=== PATIENT | male | born 1950 | race Caucasian/White ===

== ENCOUNTER 2022-05-01 16:12 | Emergency (ER) | payer MEDICARE, BC, SELFPAY ==
[2022-05-01 16:17] VITALS: BMI 29.3
--- NOTE | 2022-05-01 16:22 | ED_ITS ---
HPI - Wound/Laceration General Time Seen by Provider: 16: Date Seen: 05/01/22 Chief Complaint: Skin/Abscess/Foreign Body Stated Complaint: NEEDS STITCHES IN LEFT HAND - SHARPENING KNIFE Time Seen by Provider: 05/01/22 16:13 Source: patient and RN notes reviewed Mode of arrival: ambulatory Limitations: no limitations History of Present Illness HPI narrative: Patient is a 71-year-old male that was sharpening knives and accidentally lost control of the knife and cut a flap into his left dorsum of his hand. It was bleeding extensively. He put multiple layers of pressure on it and wrapped it up. He had put so much pressure on it that his fingers are starting to turn a little numb and tingly underneath the bandage. He is on an aspirin daily but otherwise no other blood thinners. Denies any Plavix use or antiplatelet medicines. Denies any numbness tingling. He is not sure how deep it went. Tetanus up-to-date on 03/18/2018 per nursing staff. Related Data Allergies Allergy/AdvReac Type Severity Reaction Status Date / Time atorvastatin [From Lipitor] Allergy Verified 05/01/22 16:19 epinephrine Allergy Verified 05/01/22 16:19 Review of Systems Narrative: As per HPI PFSH PFSH Social History Smoking Status: Never smoker Do you use any of these nicotine containing products: None Second hand tobacco smoke exposure: No How often do you have a drink containing alcohol: never How often do you have six or more drinks on one occasion: Never AUDIT-C Alcohol total score: 0 Non-prescribed substance use: denies use service: No Exam Const: Documenting provider has reviewed patient's vital signs: yes Common normals: no apparent distress, average body habitus, oriented x3, no limitations, healthy appearing and alert Extremity: Other: Left hand is wrapped up in multiple layers on presentation. Some tape and patellar taken down and then he had a vet wrap type product with a bandage underneath it. When I removed all of these he started having copious bleeding. With pressure proximally to the wound I was able to evaluate enough and see that the medial aspect had a small little what appeared to be venous pumping wound. This was a curvilinear type laceration about 3 cm long. I could see of tendons completely cut and could demonstrate that he had a complete loss of extension of his left 2nd finger. He could fully extend all other digits. Distal neurovascular seem to be intact. Procedure note: 10 mL of plain 2% xylocaine were drawn up, about 4 mL were used locally. Wound had such copious bleeding that I did not need irrigation and that needed to stop the bleeding. Blood pressure cuff was put up by nursing s parkerf on his forearm, patient did not feeling a tingling in his fingers due to that during the procedure. Blood pressure cuff was only up for a total of 8 minutes. I was able to see the little pumping wound and able to put a figure- eight stitch in x1 with good hemostasis. I used Vicryl for this. For the wound, used a running suture using 4-0 Ethilon. There was good hemostasis, no evidence of any significant hematoma building up under the wound. Did ask nursing staff to put a pressure dressing on this. Neuro: Common normals: oriented x3 Sensorium/orientation: alert Course Consultations Consultation #1: Dab the PA from Orthopedics kindly assisted us over the phone on consultation. She did speak with Dr. Olivares our orthopedist. This patient just ate lunch at about 230. Patient is asked to follow up tomorrow in clinic with Orthopedics. He is to call the office in they will make sure he has an appointment. I will place him in extension of this finger with a splint. Time: 16:56 Critical Care Time Critical Care Time Critical Care Time: No Discharge Plan Discharge Clinical Impression: Laceration of hand involving extensor tendon Qualifiers: Encounter type: initial encounter Laterality: left Qualified Code(s): S61.412A - Laceration without foreign body of left hand, initial encounter Condition: Stable Instructions: Laceration (ED), Tendon Laceration (ED) Additional Instructions: Call [phone] right away to get scheduled for an appointment with the orthopedist tomorrow, I believe you will be scheduled with Dr. Olivares. Leave dressing and splint on. If you note that you start bleeding through the dressing, please return to the ER overnight. Follow Up/Referrals: Anatoliy Jackson MD [Primary Care Provider] - Stand Alone [facility] Info Instructions
--- NOTE | 2022-05-01 19:20 | ED.NURSE ---
Pt returned to ED after a short period of time due to bloody drainage seeping out of dressing that was applied to hand previously. Dressing was removed. Bleeding was well controlled by the time the dress was removed with no active bleeding. Pressure was reapplied and ice was applied.
== END 2022-05-01 20:04 | disposition home or self-care (01) ==
PROVIDERS: Emergency Provider Family Medicine; PCP Family Medicine
DX: S66.329A Laceration of extensor muscle, fascia and tendon of unspecified finger at wrist and hand level, initial encounter (principal); S61.412A Laceration without foreign body of left hand, initial encounter; W26.0XXA Contact with knife, initial encounter; Y93.E9 Activity, other interior property and clothing maintenance; Y92.019 Unspecified place in single-family (private) house as the place of occurrence of the external cause; Y99.8 Other external cause status
CPT/HCPCS: 12002; 99282; 99283

== ENCOUNTER 2022-05-02 12:10 | Outpatient (CLI) | payer MEDICARE, BC, SELFPAY ==
--- OUTSIDE RECORDS SUMMARY | 2022-05-02 12:19 | XMS_ITS | Encounter Summary ---
:1950 Author Organization [facility] Address [address] [place] [address] Care Team Providers Name Role Phone Unavailable Primary Care Provider Unavailable Encounter Details Date Type Department Care Team Description 01/15/2022 Orders Only Pharmacy Prior Auth [place] Shiela Jean [phone] Social History Tobacco Use Types Packs/Day Years Used Date Smoking Tobacco: Every Day Cigarettes Smokeless Tobacco: Never Alcohol Habits Answer Date Recorded How often do you have a drink containing alcohol? 2-3 times a week 12/20/2021 How many drinks containing alcohol do you have on a 1 or 2 12/20/2021 typical day when you are drinking? How often do you have six or more drinks on one Less than mo nthly 12/20/2021 occasion? Comment: Not asked Social Isolation Answer Date Recorded In a typical week, how many times do you talk on Once a week 12/20/2021 the phone with family, friends, or neighbors? How often do you get together with friends or Once a week 12/20/2021 relatives? How often do you attend voodoo or taoist 1 to 4 times per year 12/20/2021 services? Do you belong to any clubs or organizations such Yes 12/20/2021 as voodoo groups, unions, fraternal or athletic groups, or school groups? How often do you attend meetings of the clubs or Patient ref used 12/20/2021 organizations you belong to? Are you now , , , 12/20/2021 , never or living with a partner? Physical Activity Answer Date Recorded On average, how many days per week do you engage in moderate to 4 days 12/20/2021 strenuous exercise (like walking fast, running, jogging, dancing, swimming, biking, or other activities that cause a light or heavy sweat)? On average, how many minutes do you engage in exercise at is 50 min 12/20/2021 level? Stress Answer Date Recorded Do you feel stress - tense, restless, nervous, or To some ex tent 12/20/2021 anxious, or unable to sleep at night because your mind is troubled all the time - these days? Financial Resource Strain Answer Date Recorded How hard is it for you to pay for the very basics like Not h reba at all 12/20/2021 food, housing, medical care, and heating? Intimate Partner Violence Answer Date Recorded Within the last year, have you been afraid of your partner o r No 12/20/2021 ex-partner? Within the last year, have you been humiliated or emotionall y No 12/20/2021 abused in other ways by your partner or ex-partner? Within the last year, have you been kicked, hit, slapped, or No 12/20/2021 otherwise physically hurt by your partner or ex-partner? Within the last year, have you been raped or forced to have any No 12/20/2021 kind of sexual activity by your partner or ex-partner? Food Insecurity Answer Date Recorded Within the past 12 months, you worried that your food would Never true 12/20/2021 run out before you got money to buy more. Within the past 12 months, the food you bought just didn't N ever true 12/20/2021 last and you didn't have money to get more. Transportation Needs Answer Date Recorded In the past 12 months, has lack of transportation kept you f rom No 12/20/2021 medical appointments or from getting medications? In the past 12 months, has lack of transportation kept you f rom No 12/20/2021 meetings, work, or getting things needed for daily living? Housing Stability Answer Date Recorded In the last 12 months, was there a time when you were not ab le No 12/20/2021 to pay the mortgage or rent on time? In the last 12 months, how many places have you lived? 1 12/20/2021 In the last 12 months, was there a time when you did not hav e a No 12/20/[address] or slept in a custodial (including now)? Education Answer Date Recorded What is the highest level of school Bachelor's degree (e.g., BA, AB, 12/20/2021 you have completed or the highest BS) degree you have received? Sex Assigned at Date Recorded Male 12/20/2021 1:42 AM CDT documented as of this encounter Plan of Treatment Not on filedocumented as of this encounter Visit Diagnoses Not on filedocumented in this encounter
--- OUTSIDE RECORDS SUMMARY | 2022-05-02 12:19 | XMS_ITS | Encounter Summary ---
:1950 Author Organization [facility] Address [address] [place] [address] Care Team Providers Name Role Phone Unavailable Primary Care Provider Unavailable Encounter Details Date Type Department Care Team Description 02/04/2022 Orders Only Division of Nephrology and Yomi Carbone, [facility] [place] [address] [facility] [address] [place] [phone] (Wo rk) Social History Tobacco Use Types Packs/Day Years [...] 12/20/2021 relatives? How often do you attend evangelical or jew 1 to 4 times per year 12/20/2021 services? Do you belong to any clubs or organizations such Yes 12/20/2021 as evangelical groups, unions, fraternal or athletic groups, or [...] minutes do you engage in exercise at th is 50 min 12/20/2021 level? Stress Answer [...] place to sleep or slept in a long-term (including now)? Education Answer Date Recorded What [...]
--- OUTSIDE RECORDS SUMMARY | 2022-05-02 12:19 | XMS_ITS | Encounter Summary ---
:1950 Author Organization [facility] Address [address] [place] [address] Care Team Providers Name Role Phone Unavailable Primary Care Provider Unavailable Encounter Details Date Type Department Care Team Description 12/31/2021 Orders Only Division of Nephrology Ozzy Carbone Hypertension Essential and Hypertension in [place]. Primary (Primary Dx) [place], [place] [address] [facility] [address] [place] [phone] Social History Tobacco Use Types Packs/Day Years [...] 12/20/2021 relatives? How often do you attend jewish or jewish 1 to 4 times per year 12/20/2021 services? Do you belong to any clubs or organizations such Yes 12/20/2021 as jewish groups, unions, fraternal or athletic groups, or [...] place to sleep or slept in a fdc (including now)? Education Answer Date Recorded What is the highest level of school Bachelor's degree (e.g., BA, AB, 12/20/2021 you have completed or the highest BS) degree you have received? Sex Assigned at Date Recorded Male 12/20/2021 1:42 AM CDT documented as of this encounter Plan of Treatment Not on filedocumented as of this encounter Visit Diagnoses Diagnosis Hypertension Essential Primary - Primary documented in this encounter
--- OUTSIDE RECORDS SUMMARY | 2022-05-02 12:19 | XMS_ITS | Encounter Summary ---
:1950 Author Organization [facility] Address [address] [place] [address] Care Team Providers Name Role Phone Unavailable Primary Care Provider Unavailable Reason for Visit Outpatient (Routine) - Closed Specialty Diagnoses / Procedures Referred By Contact Refer red To Contact Nephrology and Ozzy Carbone on Hypertension [place] [address] [place] [address] Referral ID Status Reason Start Date Expiration Date Visits Requ ested Visits Authorized [id number] Closed 12/24/2021 12/24/2022 1 1 Encounter Details Date Type Department Care Team Description 12/31/2021 Office Visit Division of Prudencio Carbone Es sential Primary (Primary Dx); Nephrology and Ozzy Lai M.D. Atherosclerotic [facility] Disease [facility] [place] Coronary Artery Without Angina Pectoris; Hypertension in [address] [place] [address] Diabetes Mellitus Type 1 (HCC); [place], [place] Hyperlipidemia On Treatment; 200 [facility] [address] Atherosclerosis Of Autologous Vein Coron micaela Artery Bypass Graft With Documented Spasm (HCC) [place], [place] [phone] (Work) [phone] Social History Tobacco Use Types Packs/Day Years [...] 12/20/2021 relatives? How often do you attend protestant or evangelical 1 to 4 times per year 12/20/2021 services? Do you belong to any clubs or organizations such Yes 12/20/2021 as protestant groups, unions, fraternal or athletic groups, or [...] place to sleep or slept in a fci (including now)? Education Answer Date Recorded What is the highest level of school Bachelor's degree (e.g., BA, AB, 12/20/2021 you have completed or the highest BS) degree you have received? Sex Assigned at Date Recorded Male 12/20/2021 1:42 AM CDT documented as of this encounter Progress Notes Ozzy Carbone M.D. - 12/31/2021 4:00 PM CDT SUBJECTIVE REASON FOR VISIT Tests review/Wrap up HISTORY OF PRESENT ILLNESS Mr. Anderson returns for follow up with his for follow-up of resistant hypertension. He has a history of hyperkalemia on his current medications. OBJECTIVE DIAGNOSTICS Aldosterone was in the middle of the normal range at 8.3. Plasma metanephrines were normal. A TSH from elsewhere was normal two months ago. Renin activity was high at 18, normal less than 3. Renal artery Dopplers showed mild narrowing in the left main renal artery. Serum potassium, which was 7.0 last visit is down to 5.3, still a little high. 24 hour ambulatory blood pressure monitor on his current medications of amlodipine, carvedilol, hydralazine and lisinopril averaged 157/67 with a nocturnal dip. ASSESSMENT / PLAN #1 Hypertension, not at goal #2 Coronary artery disease status post stent, bypass and pacemaker, on aspirin #3 Obstructive sleep apnea on CPAP #4 Diabetes mellitus, type 1 The left renal artery narrowing is too mild to consider intervention. Previous trials using stents to treat this type of situation failed. Instead, I will change his medication program by adding chlorthalidone, 25 mg once daily. This should lower serum potassium and blood pressure. He will continue other medications as is. He will continue to check his blood pressure as instructed. In a week or so onthe revised blood pressure program, he will send me more readings and we will react accordingly. My next step would be to switch lisinopril to a direct renin inhibitor, aliskiren He will continue his dietary changes, trying to lose weight, aerobic exercise and CPAP. He described restless leg syndrome and/or peripheral neuropathy. I do not have the expertise to manage this and suggested that he talk to a neurologist or local care provider. I would be glad to make arrangements at [facility] for this if desired. We will check a basic metabolic panel in about a week after treatment, and he will send me more blood pressure readings on the new program. Ozzy Carbone M.D. 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
--- OUTSIDE RECORDS SUMMARY | 2022-05-02 12:19 | XMS_ITS | Encounter Summary ---
:1950 Author Organization [facility] Address [address] [place] [address] Care Team Providers Name Role Phone Unavailable Primary Care Provider Unavailable Reason for Referral Outpatient (Routine) - Closed Specialty Diagnoses / Procedures Referred By Contact Refer red To Contact Diagnoses Pain [facility] Procedures DX Chest AP or PA and Lateral 2 Views C.N.P. [address] [place] [phone] Referral ID Status Reason Start Date Expiration Date Visits Requ ested Visits Authorized [id number] Closed 10/18/2021 10/18/2022 1 1 Reason for Visit Outpatient (Routine) - Closed Specialty Diagnoses / Procedures Referred By Contact Refer red To Contact Diagnoses Pain Chest [facility] Procedures DX Chest AP or PA and Lateral 2 Views C.N.P. [address] [place] [phone] Referral ID Status Reason Start Date Expiration Date Visits Requ ested Visits Authorized [id number] Closed 10/18/2021 10/18/2022 1 1 Encounter Details Date Type Department Care Team Description 12/31/2021 Hospital Encounter Department of Radiology, Dontae Cueto, Pain Chest [facility], in EYELET MACHINE OPERATOR, C.N.P. [place], [place] [address] [facility] [address] [place] [phone] (Wo rk) Social History Tobacco Use Types [...] 12/20/2021 relatives? How often do you attend anabaptism or oriental orthodox 1 to 4 times per year 12/20/2021 services? Do you belong to any clubs or organizations such Yes 12/20/2021 as anabaptism groups, unions, fraternal or athletic groups, or [...] AM CDT documented as of this encounter Medications at Time of Discharge Medication Sig Dispensed Refills Start Date End Date alpha lipoic acid 100 Take 100 mg by mouth 2 0 mg capsule (two) times a day. Total of 200mg amLODIPine (NORVASC) 10 amlodipine 10 mg tablet 0 12/09/2021 mg tablet 10mg 1/day aspirin 325 mg tablet aspirin 325 mg tablet 0 325mg 1/day chlorthalidone Take 1 tablet (25 mg 90 tablet 3 12/31/2021 12/31/2022 (HYGROTON) 25 mg tablet total) by mouth daily. copper (PARAGARD T 380A copper 0 UTRN) 2mg 1/day cyanocobalamin, vitamin cyanocobalamin (vit B-12) 1,000 mcg subl ingual lozenge 0 B-12, (VITAMIN B12) PLACE 1 TABLET UNDER THE TONGUE ONCE DAILY 1,000 mcg lozenge lozenge ferrous sulfate 324 mg Take 140 mg of iron by 0 (65 mg iron) DR tablet mouth. gabapentin (NEURONTIN) 600 mg 2 (two) times a 0 0 05/01/2021 300 mg capsule day. hydrALAZINE hydralazine 25 mg tablet 0 05/02/2021 (APRESOLINE) 25 mg TAKE 1 TABLET BY MOUTH 3 TI MES DAILY ALONG WITH 50MG TABLET FOR TOTAL DOSE OF 75MG tablet insulin lispro 100 Humalog U-100 Insulin 100 unit/mL subcutaneous olivia ution 0 unit/mL injection USING UP TO 135UNITS EVERY DAY VIA INSULIN PUMP. isosorbide mononitrate isosorbide mononitrate 0 1 (IMDUR) 60 mg 24 hr ER 60 mg tablet tablet,extended release 24 hr melatonin 10 mg capsule Take by mouth. 0 10/25/19 22 rosuvastatin (CRESTOR) rosuvastatin 40 mg 0 08/13 40 mg tablet tablet sertraline (ZOLOFT) 50 sertraline 50 mg 0 021 mg tablet tablet turmeric-turmeric root Take by mouth. 0 extract 450-50 mg capsule carvediloL (COREG) 12.5 carvedilol 12.5 mg 0 04/202202/24/2022 mg tablet tablet lisinopriL lisinopril 10 mg tablet 0 07/17/2021 0 01/14/2022 (PRINIVIL,ZESTRIL) 10 10mg 1/day mg tablet documented as of this encounter Plan of Treatment Not on filedocumented as of this encounter Procedures Procedure Name Priority Date/Time Associated Comments Diagnosis DX CHEST AP OR PA RAD - Routine 12/31/2021 12:00 Pain Chest Resul ts for this AND LATERAL 2 (most inpatients PM CDT procedure are in VIEWS and all the results outpatients) section. documented in this encounter Results DX Chest AP or PA and Lateral 2 Views (12/31/2021 12:00 PM CDT) Anatomical Region Laterality Modality Chest, Thoracic RST LOS, Thoracic ARZ LOS, Thoracic N/A Digital Radiography FLA LOS Specimen (Source) Anatomical Collection Method Collection Time Re ceived Time Location / / Volume Laterality 12/31/2021 12:01 PM CDT Impressions 12/31/2021 12:04 PM CDT Interval placement of an AV pacemaker since outside exam 06/24/2021 with left anterior chest wall generator and lead tips proje cted over the right atrial appendage and in the region of the RVOT. Mild anterior elevation of the right hemidiaphragm. Resolved left pleural effusion. Otherwise no change. Sternotomy with med iastinal clips. Borderline enlargement of the cardiac silhouette. Mildly prominent central pul monary vascular structure. Mild aortic arch calcification. Healed left clavicle and left rib fractu res. Hypertrophic degenerative change thoracic spine. Mild anterior wedging of a couple upper thora cic vertebral bodies. Narrative 12/31/2021 12:04 PM CDT EXAM: ??DX CHEST AP OR PA AND LATERAL 2 VIEWS Procedure Note Chandu Martinez M.D. - 12/31/2021Formattin g of this note might be different from the original. EXAM: DX CHEST AP OR PA AND LATERAL 2 EWS IMPRESSION: Interval placement of an AV pacemaker si nce outside exam 06/24/2021 with left anterior chest wall generator and lead tips proje cted over the right atrial appendage and in the region of the RVOT. Mild anterior elevation of the right hemidiaphragm. Resolved left pleural effusion. Otherwise no change. Sternotomy with med iastinal clips. Borderline enlargement of the cardiac silhouette. Mildly prominent central pul monary vascular structure. Mild aortic arch calcification. Healed left clavicle and left rib fractu res. Hypertrophic degenerative change thoracic spine. Mild anterior wedging of a couple upper thora cic vertebral bodies. Nydia Cueto APRN C.N.P. IMG DIAGNOSTIC IMAGING PRO CEDURES documented in this encounter Visit Diagnoses Diagnosis Pain Chest documented in this encounter
--- OUTSIDE RECORDS SUMMARY | 2022-05-02 12:19 | XMS_ITS | Encounter Summary ---
:1950 Author Organization [facility] Address [address] [place] [address] Care Team Providers Name Role Phone Unavailable Primary Care Provider Unavailable Reason for Visit Reason Comments Med Refill Encounter Details Date Type Department Care Team Description 01/14/2022 Refill Division of Nephrology and Carlotta Garzon R.N. Med Refill Hypertension in [place], [facility] [address] [place] [address] [place] [address] [place] [address] Social History Tobacco Use Types Packs/Day Years [...] 12/20/2021 relatives? How often do you attend christianity or jainism 1 to 4 times per year 12/20/2021 services? Do you belong to any clubs or organizations such Yes 12/20/2021 as christianity groups, unions, fraternal or athletic groups, or [...] for the very basics like Not h reab at all 12/20/2021 food, housing, medical care, [...] place to sleep or slept in a care home (including now)? Education Answer Date Recorded What [...]
--- OUTSIDE RECORDS SUMMARY | 2022-05-02 12:19 | XMS_ITS | Encounter Summary ---
:1950 Author Organization [facility] Address [address] [place] [id number] Care Team Providers Name Role Phone Unavailable Primary Care Provider Unavailable Reason for Visit Reason Comments Hypertension Hypertension Education and M onitor check Outpatient (Routine) - Closed Specialty Diagnoses / Procedures Referred By Contact Refer red To Contact Nephrology and Ozzy Carbone on Hypertension Tee Lai [address] [place] [phone] Referral ID Status Reason Start Date Expiration Date Visits Requ ested Visits Authorized [id number] Closed 12/24/2021 12/24/2022 1 1 Encounter Details Date Type Department Care Team Description 12/31/2021 Nurse Only Division of Nephrology Ozzy Carbone M.D. [address] [place] [phone] Hypertension and Hypertension in Isabella Neri R.N. [address] [place] [phone] (Hypertension [place], [place] Education and Monitor [address] [place] [address] check ) [place] [phone] Social History Tobacco Use Types Packs/Day Years [...] 12/20/2021 relatives? How often do you attend congregation or methodist 1 to 4 times per year 12/20/2021 services? Do you belong to any clubs or organizations such Yes 12/20/2021 as congregation groups, unions, fraternal or athletic groups, or [...] AM CDT documented as of this encounter Last Filed Vital Signs Vital Sign Reading Time Taken Comments Blood Pressure 142/52 12/31/2021 3:04 PM CDT Pulse - - Temperature - - Respiratory Rate - - Oxygen Saturation - - Inhaled Oxygen Concentration - - Weight 100 kg (220 lb 7.4 oz) 12/31/2021 3:02 PM CDT Height - - Body Mass Index 29.96 12/31/2021 12:55 PM CDT documented in this encounter Progress Notes Isabella Neri, RRamaN. - 12/31/2021 3:00 PM CDT Provider Name: Dr Carbone Reason for Visit: monitor check Home BP Monitor: Omron digital upper arm monitor with soft cuff Date last assessed: 12/31/21- Monitor found to be accurate. Plan of Care: In-office blood pressures are: above goal Patient was able to demonstrate proper cuff placement. Reviewed proper blood Recommend having home blood pressure monitor assessed for accuracy on an annual basis. Also discussed the importance of a low salt diet and limiting intake to 2000 mg per day or less and the importance of staying well hydrated. Encouraged daily exercise. Until blood pressure is at goal, recommended that he check his blood pressure in the morning and again in the evening. Informed that he can take a picture of his blood pressure readings and send the information on the portal. Reviewed signs and symptoms of heart attack and stroke. He has an appointment with Dr Carbone later this afternoon. documented in this encounter Plan of Treatment Not on filedocumented as of this encounter Visit Diagnoses Diagnosis Hypertension Essential Primary - Primary documented in this encounter
--- OUTSIDE RECORDS SUMMARY | 2022-05-02 12:19 | XMS_ITS | Encounter Summary ---
:1950 Author Organization [facility] Address [address] [place] [address] Care Team Providers Name Role Phone Unavailable Primary Care Provider Unavailable Reason for Visit Reason Comments Med Refill Priority 1/Carvedilol Encounter Details Date Type Department Care Team Description 01/31/2022 Refill Division of Nephrology Ozzy Carbone Med Refill (Priority and Hypertension in B, M.D. 1/Carvedilol) [place], [place] [address] [facility] [address] [place] [phone] (Wo rk) Social History Tobacco Use Types [...] 12/20/2021 relatives? How often do you attend hindu or sikh 1 to 4 times per year 12/20/2021 services? Do you belong to any clubs or organizations such Yes 12/20/2021 as hindu groups, unions, fraternal or athletic groups, or [...] place to sleep or slept in a [place] [facility] [place] (including now)? Education Answer Date Recorded What is the highest level of school Bachelor's degree (e.g., BA, AB, 12/20/2021 you have completed or the highest BS) degree you have received? Sex Assigned at Date Recorded Male 12/20/2021 1:42 AM CDT documented as of this encounter Miscellaneous Notes Telephone Encounter - Riddhi Brock R.N. - 01/31/2022 11:25 AM CDT SUBJECTIVE CHIEF COMPLAINT / REASON FOR CALL Med Refill (Priority 1/Carvedilol) Information Discussed Received a message from the scheduling office to have Dr. Carbone refill carvedilol. This medication is documented historically and Dr. Carbone is not the prescribing provider. Message was left for patient to return call or review portal message. Patient will need to seek refills from original prescribing provider for carvedilol. PLAN Disposition/Recommendation: self-care is appropriate at this time, patient encouraged to call back with questions Information/Education: patient/caller able to teach back Caller agreeable to plan of care: yes The following references were used: nursing clinical judgement Telephone Encounter - Kylie Adan - 01/31/2022 9:46 AM CDT Caller is: patient If not the patient, does the caller have authorization? Reason for call: Patient calling to get his Carvedilol refilled by Dr. Carbone. Patient is out of his medication and is leaving for out of town tomorrow. Please call him either way. Chief Complaint Patient presents with ??? Med Refill Carvedilol Pertinent Information: Preferred Communication Method: [phone] (mobile) Patient pharmacy: [id number] - [place] - [id number] [address] [facility] [address] [facility] [id number] [place] [id number] Additional instructions: documented in this encounter Plan of Treatment Not on filedocumented as of this encounter Visit Diagnoses Not on filedocumented in this encounter
--- OUTSIDE RECORDS SUMMARY | 2022-05-02 12:19 | XMS_ITS | Encounter Summary ---
:1950 Author Organization [facility] Address [address] [place] [address] Care Team Providers Name Role Phone Unavailable Primary Care Provider Unavailable Reason for Visit Outpatient (Routine) - Closed Specialty Diagnoses / Referred By Contact Referred To Contact Procedures Cardiovascular Diseases / Diagnoses Atherosclerotic Heart Disease Of [place] Coronary Artery Without Angina Pectoris Pantera Valero [facility] Cardiovascular Disease Mesha, M.DRama [address] [place] [address] Referral ID Status Reason Start Date Expiration Date Visits Requ ested Visits Authorized [id number] Closed 02/03/2022 02/03/2023 1 1 Encounter Details Date Type Department Care Team Description 03/25/2022 Comprehensive Visit Department of Jas Valero Essential Primary (Primary Dx); Cardiovascular Hanh Nanceot ic Heart Disease [facility] [place] Coronary Artery Without Angina Pectoris; Medicine in M.D. Hyperlipidemia; [place], [place] [address] Dizziness [address] [facility] [phone] [place] [phone] Social History Tobacco Use Types Packs/Day Years [...] 12/20/2021 relatives? How often do you attend taoist or lutheran 1 to 4 times per year 12/20/2021 services? Do you belong to any clubs or organizations such Yes 12/20/2021 as taoist groups, unions, fraternal or athletic groups, or [...] place to sleep or slept in a residential (including now)? Education Answer Date Recorded What is the highest level of school Bachelor's degree (e.g., BA, AB, 12/20/2021 you have completed or the highest BS) degree you have received? Sex Assigned at Date Recorded Male 12/20/2021 1:42 AM CDT documented as of this encounter Last Filed Vital Signs Vital Sign Reading Time Taken Comments Blood Pressure 107/50 03/25/2022 3:03 PM CDT Pulse 65 03/25/2022 3:03 PM CDT Temperature - - Respiratory Rate - - Oxygen Saturation - - Inhaled Oxygen Concentration - - Weight 97.2 kg (214 lb 4.6 oz) 03/25/2022 2:58 PM CDT Height 182.5 cm (5' 11.85) 03/25/2022 2:58 PM CDT Body Mass Index 29.18 03/25/2022 2:58 PM CDT documented in this encounter Progress Notes Pantera Valero M.D. - 03/25/2022 3:15 PM CDT GENERAL CARDIOLOGY CLINIC NOTE SUBJECTIVE REASON FOR VISIT Dizziness HISTORY OF PRESENT ILLNESS Nikita Anderson is a 71-year-old gentleman that presents for evaluation of dizziness. 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 # Obesity. # H/o prostate cancer # Reported history of atrial tachycardia versus atrial fibrillation I previously evaluated the patient on 12/31/2021. Please see documentation from that encounter for full history. To briefly summarize, the patient has a history of coronary artery bypass on 04/19/2021 with DOUGLASS to LAD, reverse SVG to PDA, and reverse SVG to OM2. In fall 2020, patient underwent repeat angiogram due to abnormalities noted on TTE. This demonstrated stump occlusion of graft to OM. Patient was medically managed as it was felt to be a relatively small myocardial territory, inconsistent withechocardiographic findings. Most recently, in spring 2021, the patient presented to ED with symptomatic bradycardia with sinus node dysfunction/junctional escape and underwent dual-chamber pacemaker implantation on 10/25/2021. Notably, the patient did have a history of atrial tachycardia versus atrial fibrillation post surgery, but this has not been demonstrated on his pacemaker. He has a history of hypertension and is currently being followed by our hypertension clinic He presents today for evaluation of lightheadedness. Symptoms were worst in January/February of this year, the patient was having multiple episodes of lightheadedness throughout the day lasting upwards of 1 minute. He had no associated symptoms such as flushing, nausea, chest pain, or palpitations. 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 They also frequently occurred when moving from a bending to standing position, though not consistently with positional change. Symptoms appear to have improved over the past month. He previously underwent transthoracic echocardiogram in December with no significant valvular disease. LVfunction is preserved though the patient does have anterior/anterior septal mid ventricular aneurysmal changes. Patient reports no concerning abnormalities on device interrogation performed locally. I have reviewed and updated the following: Past Medical History, Family History, Social History, andAllergies., Past Medical History: Diagnosis Date Apnea Sleep Obstructive Chronic Kidney Disease Coronary Arterial Bypass Graft Status Post Personal History Diabetes Mellitus Type 1 (HCC) Pacemaker Cardiac Status Post , No past surgical history on file., No family history on file., Social History Socioeconomic History Marital status: Highest education level: Bachelor's degree (e.g., BA, AB, BS) Tobacco Use Smoking status: Every Day Types: Cigarettes Smokeless tobacco: Never Vaping Use Vaping Use: never used Social Determinants of Health Financial Resource Strain: Low Risk Difficulty of Paying Living Expenses: Not hard at all Food Insecurity: No Food Insecurity Worried About Running Out of Food in the Last Year: Never true Ran Out of Food in the Last Year: Never true Transportation Needs: No Transportation Needs Lack of Transportation (Medical): No Lack of Transportation (Non-Medical): No Physical Activity: Sufficiently Active Days of Exercise per Week: 4 days Minutes of Exercise per Session: 50 min Stress: Stress Concern Present Feeling of Stress : To some extent Social Connections: Moderately Integrated Frequency of Communication with Friends and Family: Once a week Frequency of Social Gatherings with Friends and Family: Once a week Attends Church Services: 1 to 4 times per year Active Member of Clubs or Organizations: Yes Attends Club or Organization Meetings: Patient refused Marital Status: Intimate Partner Violence: Not At Risk Fear of Current or Ex-Partner: No Emotionally Abused: No Physically Abused: No Sexually Abused: No Housing Stability: Low Risk Unable to Pay for Housing in the Last Year: No Number of Places Lived in the Last Year: 1 Unstable Housing in the Last Year: No , and Allergies Allergen Reactions Atorvastatin Other (see comments) Congestion Epinephrine Other (see comments) and Palpitations Active Home Medications Medication Sig Taking amLODIPine (NORVASC) 10 mg tablet amlodipine 10 mg tablet 10mg 1/day Yes aspirin 325 mg tablet aspirin 325 mg tablet 325mg 1/day Yes carvediloL (COREG) 12.5 mg tablet Take 1 tablet (12.5 mg total) by mouth 2 (two) times a day with meals. Yes chlorthalidone (HYGROTON) 25 mg tablet Take 1 tablet (25 mg total) by mouth daily. Yes copper (PARAGARD T 380A UTRN) copper 2mg 1/day Yes cyanocobalamin, vitamin B-12, (VITAMIN B12) 1,000 mcg lozenge lozenge cyanocobalamin (vit B-12) 1,[address] 1 TABLET UNDER THE TONGUE ONCE DAILY Yes ferrous sulfate 324 mg (65 mg iron) DR tablet Take 140 mg of iron by mouth. Yes gabapentin (NEURONTIN) 300 mg capsule 600 mg 2 (two) times a day. Yes hydrALAZINE (APRESOLINE) 25 mg tablet hydralazine 25 mg tablet TAKE 1 TABLET BY MOUTH 3 TIMES DAILY ALONG WITH 50MG TABLET FOR TOTAL DOSE OF 75MG Yes insulin lispro 100 unit/mL injection Humalog U-100 Insulin 100 unit/mL subcutaneous solution USING UP TO 135UNITS EVERY DAY VIA INSULIN PUMP. Yes isosorbide mononitrate (IMDUR) 60 mg 24 hr tablet isosorbide mononitrate ER 60 mg tablet,extended release 24 hr Yes melatonin 10 mg capsule Take by mouth. Yes rosuvastatin (CRESTOR) 40 mg tablet rosuvastatin 40 mg tablet Yes sertraline (ZOLOFT) 50 mg tablet sertraline 50 mg tablet Yes turmeric-turmeric root extract 450-50 mg capsule Take by mouth. Yes aliskiren (TEKTURNA) 150 mg tablet Take 1 tablet (150 mg total) by mouth daily. Patient not taking: Reported on 03/25/2022 alpha lipoic acid 100 mg capsule Take 100 mg by mouth 2 (two) times a day. Total of 200mg REVIEW OF SYSTEMS Pertinent items are noted in HPI; all other review of systems was negative. OBJECTIVE VITAL SIGNS BP (!) 107/50 (BP Location: Left arm, Patient Position: Standing, Cuff Size: Regular) Pulse 65 Ht 182.5 cm Wt 97.2 kg BMI 29.18 kg/m?? PHYSICAL EXAMINATION Constitutional: Seated on exam table, appears comfortable, no acute distress HENT: Conjunctiva not injected Heart: Normal rate, regular rhythm. 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 # Obesity. # H/o prostate cancer # Reported history of atrial tachycardia versus atrial fibrillation Mr. Anderson is a 71-year-old gentleman who presents for symptoms of dizziness. Medical history is asoutlined above. In particular, the patient states has had symptoms of dizziness most notably in summer of this year. Symptoms appear to be improving with in past month or so. He describes the symptoms of brief lightheadedness, particularly when working/active. With regards to objective evaluations, transthoracic echocardiogram and pacemaker device interrogation locally without any concerning findingsthat would explain the patient's symptoms. Antihypertensive regimen is being managed by our Nephrology colleagues, however home blood pressure readings appears to be normotensive to slightly hypertensive; without significant hypotensive episodes. Given the nature of the presenting symptoms and how they presented most frequently in the summer and while active, I suspect that they may in part be due todehydration. We discussed about conservative measures including oral hydration, minimizing time in high temperatures, and lower extremity compression stockings. With regards to the patient's TTE findings of aneurysmal changes, the patient is on low-dose Jose inhibitor and carvedilol. LVEF is preserved. Patient is otherwise asymptomatic. We will plan for repeat TTE in 1 year. Imaging can be repeated sooner along with an autonomic reflex screening patient's symptoms are to worsen again. Lastly, the patient wishes to transfer his cardiology care here. We will ask for device interrogation to be performed at next follow-up visit in 1 year and transition his care here following. Plan: - Conservative management with oral hydration, minimization of exacerbating environmental factors and lower extremity compression stockings - Return visit in 1 year with repeat TTE and cardiac device interrogation Electronically signed by: Pantera Valero M.D. documented in this encounter Plan of Treatment Not on filedocumented as of this encounter Visit Diagnoses Diagnosis Hypertension Essential Primary - Primary Atherosclerotic Heart Disease Of [place] Coronary Artery Without Angina Pectoris Hyperlipidemia Dizziness documented in this encounter
--- OUTSIDE RECORDS SUMMARY | 2022-05-02 12:19 | XMS_ITS | Encounter Summary ---
:1950 Author Organization [facility] Address [address] [place] [address] Care Team Providers Name Role Phone Unavailable Primary Care Provider Unavailable Reason for Visit Reason Comments Lab Monitoring Outside lab results from 01/08 Encounter Details Date Type Department Care Team Description 01/13/2022 Clinical Division of Cait, Lab Monitoring Communication Nephrology and Carlotta Waite, (Outside lab Hypertension in R.N. results from [place], [place] [address] [facility] 01/08/2022) [address] [place] [phone] Social History Tobacco Use Types Packs/Day Years [...] How often do you attend taoist or baptism 1 to 4 times per year 12/20/2021 [...] place to sleep or slept in a assisted (including now)? Education Answer Date Recorded What is the highest level of school Bachelor's degree (e.g., BA, AB, 12/20/2021 you have completed or the highest BS) degree you have received? Sex Assigned at Date Recorded Male 12/20/2021 1:42 AM CDT documented as of this encounter Miscellaneous Notes Telephone Encounter - Ozzy Carbone M.D. - 01/13/2022 5:07 PM CDT We still need better blood pressure control. I note that his renin was disproportionately high compared to his aldosterone. Let's stop his JAMAR/ARB (epic will not let me review meds from this note) and substitute aliskiren 150 mg daily. Failing that, we will likely switch his vasodilator to minoxidil. P tara have him keep us informed of his blood pressure readings. Thanks. See Telephone Encounter - Carlotta Chavira I. RRicky - 01/13/2022 1:09 PM CDT Fax received with outside lab results from 01/08/2022. These results are available in Care Everywhere under [facility] Dr. Carbone to review. documented in this encounter Plan of Treatment Not on filedocumented as of this encounter Visit Diagnoses Not on filedocumented in this encounter
--- OUTSIDE RECORDS SUMMARY | 2022-05-02 12:19 | XMS_ITS | Clinical Summary ---
:[address] [facility] Address [address] [place] [address] Care Team Providers Name Role Phone Unavailable Primary Care Provider Unavailable Source Comments Patient records contain information from all sites at [facility]. For routine questions regarding patient records, call [phone] during business hours, M-F 8:00 AM - 5:00 PM Central Time. Record requests for emergency care only can be directed to [phone] at any time.[facility] Allergies Active Allergy Reactions Severity Noted Date Comments Atorvastatin Other (see comments) High 02/11/2015 Congest ion Epinephrine Other (see comments), Palpitations High 2010 Medications Medication Sig Dispensed Refills Start Date End Date Status amLODIPine (NORVASC) amlodipine 10 mg tablet 0 12/09 Active 10 mg tablet 10mg 1/day aspirin 325 mg aspirin 325 mg tablet 0 Active tablet 325mg 1/day copper (PARAGARD T copper 0 A ctive 380A UTRN) 2mg 1/day cyanocobalamin, cyanocobalamin (vit B-12) 1,000 mcg sublingual lozenge 0 Active vitamin B-12, PLACE 1 TABLET UNDER THE TONGUE ONCE DAILY (VITAMIN B12) 1,000 mcg lozenge lozenge ferrous sulfate 324 Take 140 mg of iron 0 Active mg (65 mg iron) DR by mouth. tablet gabapentin 600 mg 2 (two) times 0 05/01/2021 Active (NEURONTIN) 300 mg a day. capsule hydrALAZINE hydralazine 25 mg tablet 0 05/02/2021 Active (APRESOLINE) 25 mg TAKE 1 TABLET BY MOUTH 3 TI MES DAILY ALONG WITH 50MG TABLET FOR TOTAL DOSE OF 75MG tablet isosorbide isosorbide 0 08/08/2021 Active mononitrate (IMDUR) mononitrate ER 60 mg 60 mg 24 hr tablet tablet,extended release 24 hr melatonin 10 mg Take by mouth. 0 10/24/2021 Active capsule rosuvastatin rosuvastatin 40 mg 0 08/13/2017 Active (CRESTOR) 40 mg tablet tablet sertraline (ZOLOFT) sertraline 50 mg 0 03/13/2021 Active 50 mg tablet tablet turmeric-turmeric Take by mouth. 0 Active root extract 450-50 mg capsule insulin lispro 100 Humalog U-100 Insulin 100 unit/mL subcutaneous solu tion 0 Active unit/mL injection USING UP TO 135UNITS EVERY DAY VIA INSULIN PUMP. alpha lipoic acid Take 100 mg by mouth 0 Active 100 mg capsule 2 (two) times a day. Total of 200mg chlorthalidone Take 1 tablet (25 mg 90 tablet 3 12/31/2021 Active (HYGROTON) 25 mg total) by mouth 3 tablet daily. carvediloL (COREG) Take 1 tablet (12.5 180 tablet 3 02/24/2022 Active 12.5 mg tablet mg total) by mouth 2 (two) times a day with meals. Active Problems Problem Noted Date Presence Of Aortocoronary Bypass Graft 04/29/2021 Personal History Of Malignant Neoplasm Of Prostate Presence Of Coronary Angioplasty Implant And Graft Sta tus Post 06/12/2015 Hypertension Essential Primary 03/27/2004 Overview: Formatting of this note might be differe nt from the original. February 2016: On amlodipine, carvedilol, cl onidine, finasteride, lisinopril hydrochlorothiazide combination pill. Decreased lisinopril/ hydrochlorothiazide to once daily due to low blood pressure symptoms. March 2021: Dr. Luong stopped clonidine (0.1 mg twice daily) due to low blood pressure and tired symptoms. Jun 2021: Stopped amlodipine, and starte d on lisinopril 20mg. Dr. Solis August 01, 2021: amlodipine increased to 10mg per Patient MyChart Message. July 2021: Imdur increased to 60mg b y Cardiology. Formatting of this note might be differe nt from the original. Renal Artery US: 09/2013:Patent bilateral renal arteries Renal Artery US 08/2012: Right and Left < 60% stenosis Problem list name updated by automated p [employer]. Provider to review Hyperlipidemia 11/16/2002 Overview: Formatting of this note might be differe nt from the original. Years ago had side effects from Atorvast atin (Lipitor) of congestion and post nasal drip. October 2013: Endocrinology LDL 62, on sta tin. December 2014: Endocrinology changed back to Atorvastatin (Lipitor) and increased nasal congestion and post nasal drip. So will change back to Simvastatin (Zocor). Formatting of this note might be differe nt from the original. Problem list name updated by automated p [employer]. Provider to review Encounters Date Type Specialty Care Team Description 03/25/2022 Comprehensive Visit Cardiovascular Marylu, Hypert ension Essential Primary (Primary Dx); Disease Pantera R, Atherosclerotic Heart Disease Of [place] Coronary Artery Without Angina Pectoris; M.DRama Hyperlipidemia; Dizziness 02/04/2022 Orders Only Nephrology and Raf Hypertension Ozzy Lai M.D. 01/31/2022 Refill Nephrology and Raf Med Refill (P riority Hypertension Ozzy Lai, 1/Carvedilol) Tee from Last 3 Months Social History Tobacco Use Types Packs/Day Years Used Date Smoking Tobacco: Every Day Cigarettes Smokeless Tobacco: Never Tobacco Cessation: Counseling Given: No Alcohol Habits Answer Date Recorded How often [...] 12/20/2021 relatives? How often do you attend orthodox or catholic 1 to 4 times per year 12/20/2021 services? Do you belong to any clubs or organizations such Yes 12/20/2021 as orthodox groups, unions, fraternal or athletic groups, or [...] place to sleep or slept in a chcf (including now)? Education Answer Date Recorded What is the highest level of school Bachelor's degree (e.g., BA, AB, 12/20/2021 you have completed or the highest BS) degree you have received? Sex Assigned at Date Recorded Male 12/20/2021 1:42 AM CDT Last Filed Vital Signs Vital Sign Reading Time Taken Comments Blood Pressure 107/50 03/25/2022 3:03 PM CDT Pulse 65 03/25/2022 3:03 PM CDT Temperature 35.1 ??C (95.2 ??F) 12/24/2021 8:09 AM CDT Respiratory Rate - - Oxygen Saturation - - Inhaled Oxygen Concentration - - Weight 97.2 kg (214 lb 4.6 oz) 03/25/2022 2:58 PM CDT Height 182.5 cm (5' 11.85) 03/25/2022 2:58 PM CDT Body Mass Index 29.18 03/25/2022 2:58 PM CDT Plan of Treatment Health Maintenance Due Date Last Done Comments CT Colonography 1950 Cologuard 1950 Colonoscopy 1950 Colorectal Cancer Screening 1950 FIT 1950 Hepatitis C Screening 1950 Tobacco Cessation counseling 1950 Depression Screening (Annual 08/10/2021 PHQ-2) COVID-19 Vaccine (5 - Booster for 01/09/2022 11/14/2021, , Moderna series) 10/12/2020, Additional history exists Influenza Vaccine (#1) 2022 06/12/2021, 06/12/2021, 04/26/2020, Additional history exists Creatinine Level 12/31/2022 12/31/2021, 12/24/2021, 10/29/2021, Additional history exists Potassium Level 12/31/2022 12/31/2021, 12/24/2021, 10/29/2021, Additional history exists Sodium Level 12/31/2022 12/31/2021, 12/24/2021, 10/29/2021, Additional history exists Office Visit for Blood Pressure 03/25/2023 03/25/2022 Check / Re-check Fasting Glucose for Diabetes 12/31/2024 12/31/2021, 022, Screening 10/29/2021, Additional history exists Lipid (Cholesterol) Screening 06/06/2026 06/06/2021, 2020 DTaP,Tdap,and Td Vaccines (3 - Td 03/18/2028 03/18/2018, , or Tdap) 06/30/1997 Pneumococcal vaccine (65+ years) Completed 10/27/2017, 09/2016, 12/29/2014, Additional history exists Zoster Vaccines Completed 10/31/2021, 08/16/2021 Fall Risk Screen (Annual) Completed 03/25/2022 Medical Devices Implanted Type Area Senior Media Buyer Device Shelf Model / Identifier Expiration Serial / Date Lot [facility] [id number] Ingevity + Mri [id number] Cardiac Lead [place] [id number] INGEVITY + MRI / Implanted: 10/14/2021 (Quantity not on file) FilterSureic [id number] / Cardiac Stent-09/11/2014 Cardiac Left: Implanted: 09/11/2014 (Quantity not on file) Stent Coronary Cardiac Stent-09/26/2014 Cardiac Left: Implanted: 09/26/2014 (Quantity not on file) Stent Coronary Bsc [id number] [place] Mri El [id number] Pacemaker [place] [id number] ACCOLADE MRI EL / Implanted: 10/14/2021 (Quantity not on file) DBL Acquisition tific [id number] / Pacemaker-10/15/2021 Pacemaker Left: Heart Implanted: 10/15/2021 (Quantity not on file) Insurance Payer Benefit Plan / Subscriber ID Effective Phone Address T ype Group Dates MEDICARE MEDICARE A AND [id number] 2014-Prese [address] [place] [address] BLUE [place] [id number] 2018-[place] [address] Indemnity BLUE [place] [address]
--- OUTSIDE RECORDS SUMMARY | 2022-05-02 12:19 | XMS_ITS | Encounter Summary ---
:1950 Author Organization [facility] Address [address] [place] [address] Care Team Providers Name Role Phone Unavailable Primary Care Provider Unavailable Reason for Visit Reason Comments Rx Prior Authorization Encounter Details Date Type Department Care Team Description 01/15/2022 Clinical Division of Iqra Carbone Prior Communication Nephrology and Shantelle Deal Hypertension in M.D. [place], [facility] [address] [place], [place] [address] [facility] [id number] [place], [place] [phone] (Work) [phone] Social History Tobacco Use Types Packs/Day Years [...] 12/20/2021 relatives? How often do you attend nondenominational or worship 1 to 4 times per year 12/20/2021 services? Do you belong to any clubs or organizations such Yes 12/20/2021 as nondenominational groups, unions, fraternal or athletic groups, or [...] place to sleep or slept in a alf (including now)? Education Answer Date Recorded What is the highest level of school Bachelor's degree (e.g., BA, AB, 12/20/2021 you have completed or the highest BS) degree you have received? Sex Assigned at Date Recorded Male 12/20/2021 1:42 AM CDT documented as of this encounter Miscellaneous Notes Telephone Encounter - Debra Hamlin - 01/15/2022 12:09 PM CDT I received a fax from [employer] stating that we need a PA for Aliskiren 150 mg. This was routed to [facility] through [facility]. documented in this encounter Plan of Treatment Not on filedocumented as of this encounter Visit Diagnoses Not on filedocumented in this encounter
--- OUTSIDE RECORDS SUMMARY | 2022-05-02 12:19 | XMS_ITS | Encounter Summary ---
:1950 Author Organization [facility] Address [address] [place] [id number] Care Team Providers Name Role Phone Unavailable Primary Care Provider Unavailable Encounter Details Date Type Department Care Team Description 12/31/2021 Hospital Encounter Department of Laboratory Dontae Cueto, Pain Chest Medicine and Pathology, Brendan [facility] [address] [place] [address] [place] [id number] [place] [address] [phone] Social History Tobacco Use Types Packs/Day Years [...] 12/20/2021 relatives? How often do you attend sabianist or zoroastrian 1 to 4 times per year 12/20/2021 services? Do you belong to any clubs or organizations such Yes 12/20/2021 as sabianist groups, unions, fraternal or athletic groups, or [...] place to sleep or slept in a nursing home (including now)? Education Answer Date Recorded [...] a day. Total of 200mg amLODIPine (NORVASC) amlodipine 10 mg tablet 0 10 mg tablet 10mg 1/day aspirin 325 mg tablet aspirin 325 mg tablet 0 325mg 1/day copper (PARAGARD T copper 0 380A UTRN) 2mg 1/day cyanocobalamin, cyanocobalamin (vit B-12) 1,000 mcg sublingual lozeng e 0 vitamin B-12, (VITAMIN PLACE 1 TABLET UNDER THE TONGUE ONCE DAILY B12) 1,000 mcg lozenge lozenge ferrous sulfate [...] 10 mg Take by mouth. 0 10/24/2021 capsule rosuvastatin (CRESTOR) rosuvastatin 40 mg 0 08/13 40 mg tablet tablet sertraline (ZOLOFT) 50 sertraline 50 mg tablet 0 03/13/2021 mg tablet turmeric-turmeric root Take by mouth. 0 extract 450-50 mg capsule carvediloL (COREG) carvedilol 12.5 mg 0 2 02/24/2022 12.5 mg tablet tablet lisinopriL lisinopril 10 mg tablet 0 07/17/2021 0 01/14/2022 (PRINIVIL,ZESTRIL) 10 10mg 1/day mg tablet documented as of this encounter Plan of Treatment Not on filedocumented as of this encounter Procedures Procedure Name Priority Date/Time Associated Comments Diagnosis CBC WITH DIFFERENTIAL, Routine 12/31/2021 9:26 AM Pain Chest Results for this B CDT procedure are i n the results section. COMPREHENSIVE Routine 12/31/2021 9:26 AM Pain Chest Results for this METABOLIC PANEL, S/P CDT procedu re are in the results section. documented in this encounter Results (ABNORMAL) Comprehensive Metabolic Panel (12/31/2021 9:26 AM CDT) Analysis Performed At Patho logist Time Signature Potassium, S 5.3 (H) 3.6 - 5.2 12/31/2021 DTL mmol/L 11:11 AM CDT Sodium, S 142 135 - 145 12/31/2021 DTL mmol/L 11:11 AM CDT Chloride, S 110 (H) 98 - 107 12/31/2021 DTL mmol/L 11:11 AM CDT Bicarbonate, S 21 (L) 22 - 29 12/31/2021 DTL mmol/L 11:11 AM CDT Anion Gap 11 7 - 15 12/31/2021 DTL 11:11 AM CDT BUN (Blood Urea 53 (H) 8 - 24 12/31/2021 DTL Nitrogen), S mg/dL 11:11 AM CDT Creatinine 1.36 (H) 0.74 - 12/31/2021 DTL 1.35 mg/dL 11:11 AM CDT eGFR-Non 52 (L) >=60 12/31/2021 DTL Black/ mL/min/BSA 11:11 AM CDT Martiniqu[place] Comment: ----ADDITIONAL INFORMATION---- Estimated GFR calculated using the 2009 CKD_EPI creatinine equation. eGFR-Black/ 60 >=60 mL/min/BSA 2021 11:11 AM CDT DTL Comment: ----ADDITIONAL INFORMATION---- Estimated GFR calculated using the 2009 CKD_EPI creatinine equation. Calcium, Total, S 9.3 8.8 - 10.2 mg/dL 12/31/2021 11:1 1 AM CDT DTL Glucose, S 49 (CL) 70 - 140 mg/dL 12/31/2021 11:11 AM CDT DTL Protein, Total, S 6.8 6.3 - 7.9 g/dL 12/31/2021 11:11 AM CDT DTL Albumin, S 4.3 3.5 - 5.0 g/dL 12/31/2021 11:11 AM CDT DTL Aspartate Aminotransferase 21 8 - 48 U/L 12/31/2021 1 1:11 AM CDT DTL (AST), S Alkaline Phosphatase, S 59 40 - 129 U/L 12/31/2021 11 :11 AM CDT DTL Alanine Aminotransferase 18 7 - 55 U/L 12/31/2021 11: 11 AM CDT DTL (ALT), S Bilirubin, Total, S 0.2 <=1.2 mg/dL 12/31/2021 11:11 A M CDT DTL Specimen Anatomical Collection Method Collection Time Receive d Time (Source) Location / / Volume Laterality Blood (Blood, 12/31/2021 9:26 AM 01/01/20 22 Venous) CDT 10:13 AM CDT Nydia Cueto APRN C.N.P. LAB BLOOD ADD-ON Performing Organization Address City/State/ZIP Code Phon e Number [facility] - [address] [place], [place] [address] [facility] [place] [address] Laboratories-[facility] [address] (ABNORMAL) CBC with Differential, Blood (12/31/2021 9:26 AM CDT) [employer] gist Method Time Signature Hemoglobin 10.5 (L) 13.2 - 12/31/2021 DTL 16.6 g/dL 10:13 AM CDT Hematocrit 33.1 (L) 38.3 - 12/31/2021 DTL 48.6 % 10:13 AM CDT Erythrocytes 3.68 (L) 4.35 - 12/31/2021 DTL 5.65 10:13 AM CDT x10(12)/L MCV 89.9 78.2 - 12/31/2021 DTL 97.9 fL 10:13 AM CDT RBC Distrib Width 12.9 11.8 - 12/31/2021 DTL 14.5 % 10:13 AM CDT Platelet Count 208 135 - 317 12/31/2021 DTL x10(9)/L 10:13 AM CDT Leukocytes 8.0 3.4 - 9.6 12/31/2021 DTL x10(9)/L 10:13 AM CDT Neutrophils 5.52 1.56 - 12/31/2021 DTL 6.45 10:13 AM CDT x10(9)/L Lymphocytes 1.29 0.95 - 12/31/2021 DTL 3.07 10:13 AM CDT x10(9)/L Monocytes 0.80 0.26 - 12/31/2021 DTL 0.81 10:13 AM CDT x10(9)/L Eosinophils 0.30 0.03 - 12/31/2021 DTL 0.48 10:13 AM CDT x10(9)/L Basophils 0.05 0.01 - 12/31/2021 DTL 0.08 10:13 AM CDT x10(9)/L Specimen Anatomical Collection Method Collection Time Receive d Time (Source) Location / / Volume Laterality Blood (Blood, 12/31/2021 9:26 AM 01/01/20 9:45 Venous) CDT AM CDT Nydia Cueto APRN C.N.P. LAB BLOOD ADD-ON Performing Organization Address City/State/ZIP Code Phon e Number [facility] - [address] [place], [place] [address] [facility] [place] [address] [facility] [address] documented in this encounter Visit Diagnoses Diagnosis Pain Chest documented in this encounter
--- OUTSIDE RECORDS SUMMARY | 2022-05-02 12:20 | XMS_ITS | Encounter Summary ---
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 [facility] Diabetes Mellitus Type 1 (HCC) [address] Procedures US Kidneys [place] [address] Referral ID Status Reason Start Date Expiration Date Visits Requ ested Visits Authorized [id number] Closed 12/24/2021 12/24/2022 1 1 Reason for Visit Outpatient (Routine) - Closed Specialty Diagnoses / Procedures Referred By Contact Refer red To Contact Diagnoses Hypertension Essential Primary Chronic Kidney Disease (CKD), Stage 3a Glomerular Filtration Rate (GFR) 45 To 59 (HCC) Atherosclerosis Of Autologous Vein Coronary Artery Bypass Graft With Documented Spasm (HCC) Ozzy Carbone M.D. [facility] Diabetes Mellitus Type 1 (HCC) [address] Procedures US Kidneys [place] [address] Referral ID Status Reason Start Date Expiration Date Visits Requ ested Visits Authorized [id number] Closed 12/24/2021 12/24/2022 1 1 Encounter Details Date Type Department Care Team Description 12/27/2021 Hospital Encounter Department of Catherine Carbone Primary; Radiology, Jeremy Lai M.D. Chronic Kidney Disease (CKD), Stage 3a G lomerular Filtration Rate (GFR) 45 To 59 (HCC); [facility], in [address] [facility] Atherosclerosis Of Autologous Vein Coron micaela Artery Bypass Graft With Documented Spasm (HCC); [place], [place] Diabetes Keenan tus Type 1 (HCC) [place] [address] 200 [facility] [phone] [place], [place] (Work) [phone] Social History Tobacco Use Types Packs/Day Years [...] 12/20/2021 relatives? How often do you attend quaker or jehovah's witness 1 to 4 times per year 12/20/2021 services? Do you belong to any clubs or organizations such Yes 12/20/2021 as quaker groups, unions, fraternal or athletic groups, or [...] place to sleep or slept in a half-way (including now)? Education Answer Date Recorded What [...] 0 2 02/24/2022 12.5 mg tablet tablet ferrous sulfate (SLOW Take 45 mg of iron by 0 12/31/2021 IRON) 140 mg (45 mg mouth daily. iron) ER tablet hydrALAZINE Take 75 mg by mouth. Pt 0 09/16/2021 12/31/2021 (APRESOLINE) 50 mg is taking 75 mg daily. tablet Is not an option when trying to select. lisinopriL lisinopril 10 mg tablet 0 07/17/2021 0 01/14/2022 (PRINIVIL,ZESTRIL) 10 10mg 1/day mg tablet documented as of this encounter Plan of Treatment Not on filedocumented as of this encounter Procedures Procedure Name Priority Date/Time Associated Comments Diagnosis US KIDNEYS WITH RAD - Routine 12/27/2021 3:52 Hypertension Results for this RENAL ARTERY (most inpatients PM CDT Essential Prima ry procedure are in DOPPLER and all Chronic Kidney the results outpatients) Disease (CKD), section. Stage 3a Glomerular Filtration Rate (GFR) 45 To 59 (HCC) Atherosclerosis Of Autologous Vein Coronary Artery Bypass Graft With Documented Spasm (HCC) Diabetes Mellitus Type 1 (HCC) documented in this encounter Results US Kidneys with Renal Artery Doppler (12/27/2021 3:52 PM CDT) Anatomical Region Laterality Modality Abdomen, Renal, Ultrasound RST LOS, Ultrasound ARZ LOS, N/A Ultrasound Ultrasound FLA LOS, Procedural Specimen (Source) Anatomical Collection Method Collection Time Re ceived Time Location / / Volume Laterality 12/27/2021 3:55 PM CDT Impressions 12/27/2021 3:59 PM CDT Mildly elevated velocities in the left proximal renal artery suggests a mild to moderate stenosis. Otherwise, the renal artery ve locities are normal with no high-grade stenosis Narrative 12/27/2021 3:59 PM CDT EXAM: US KIDNEYS WITH RENAL ARTERY DOPPLER Exam performed with color and spectral D oppler analysis. COMPARISON: None FINDINGS: Right kidney: Normal echogenicity and pa renchymal thickness. No hydronephrosis Right renal artery: Negative for stenosi s; single vessel moderately well seen Left kidney: Normal echogenicity and par enchymal thickness. No hydronephrosis. . 2 cm benign cyst Left renal artery: Mildly elevated veloc ities in the proximal renal artery suggests a mild to moderate stenosis. Right Renal Measurements: Right renal length: 11.7 cm Right segmental artery - upper pole RI: 0.85 Right segmental artery - lower pole RI: 0.85 Right renal artery origin PSV: 141 cm/s Right renal artery prox PSV: 114 cm/s Right renal artery mid PSV: 115 cm/s Right renal artery distal PSV: 104 cm/s Left Renal Measurements: Left renal length: 11.6 cm Left segmental artery - upper pole RI: 0 .73 Left segmental artery - lower pole RI: 0 .79 Left renal artery origin PSV: 136 cm/s Left renal artery prox PSV: 179 cm/s Left renal artery mid PSV: 131 cm/s Left renal artery distal PSV: 111 cm/s Aorta: Normal caliber. Aorta PSV: 128 cm/s Bladder: Normal. Procedure Note Alvaro Cerda M.D. - 12/27/2021Formatti ng of this note might be different from the original. EXAM: US KIDNEYS WITH RENAL ARTERY DOPPL ER Exam performed with color and spectral D oppler analysis. COMPARISON: None FINDINGS: Right kidney: Normal echogenicity and pa renchymal thickness. No hydronephrosis Right renal artery: Negative for stenosi s; single vessel moderately well seen Left kidney: Normal echogenicity and par enchymal thickness. No hydronephrosis. . 2 cm benign cyst Left renal artery: Mildly elevated veloc ities in the proximal renal artery suggests a mild to moderate stenosis. Right Renal Measurements: Right renal length: 11.7 cm Right segmental artery - upper pole RI: 0.85 Right segmental artery - lower pole RI: 0.85 Right renal artery origin PSV: 141 cm/s Right renal artery prox PSV: 114 cm/s Right renal artery mid PSV: 115 cm/s Right renal artery distal PSV: 104 cm/s Left Renal Measurements: Left renal length: 11.6 cm Left segmental artery - upper pole RI: 0 .73 Left segmental artery - lower pole RI: 0 .79 Left renal artery origin PSV: 136 cm/s Left renal artery prox PSV: 179 cm/s Left renal artery mid PSV: 131 cm/s Left renal artery distal PSV: 111 cm/s Aorta: Normal caliber. Aorta PSV: 128 cm/s Bladder: Normal. IMPRESSION: Mildly elevated velocities in the left p roximal renal artery suggests a mild to moderate stenosis. Otherwise, the renal artery ve locities are normal with no high-grade stenosis Ozzy ALEXIS US PROCEDURES documented in this encounter Visit Diagnoses Diagnosis Hypertension Essential Primary Chronic Kidney Disease (CKD), Stage 3a G lomerular Filtration Rate (GFR) 45 To 59 (HCC) Atherosclerosis Of Autologous Vein Coron micaela Artery Bypass Graft With Documented Spasm (HCC) Diabetes Mellitus Type 1 (HCC) documented in this encounter
--- OUTSIDE RECORDS SUMMARY | 2022-05-02 12:20 | XMS_ITS | Encounter Summary ---
:1950 Author Organization [facility] Address [address] [place] [address] Care Team Providers Name Role Phone Unavailable Primary Care Provider Unavailable Encounter Details Date Type Department Care Team Description 12/24/2021 Clinical Communication Division of Nephrology Melia Combs and Hypertension urban Pryor M.D. [place], [place] [address] [facility] [address] [place] [id number] [phone] Social History Tobacco Use Types Packs/Day Years [...] 12/20/2021 relatives? How often do you attend synagogue or yazidi 1 to 4 times per year 12/20/2021 services? Do you belong to any clubs or organizations such Yes 12/20/2021 as synagogue groups, unions, fraternal or athletic groups, or [...] place to sleep or slept in a senior living (including now)? Education Answer Date Recorded What is the highest level of school Bachelor's degree (e.g., BA, AB, 12/20/2021 you have completed or the highest BS) degree you have received? Sex Assigned at Date Recorded Male 12/20/2021 1:42 AM CDT documented as of this encounter Miscellaneous Notes Telephone Encounter - Melia Combs M.D. - 12/24/2021 10:36 PM CDT I have received a phone call from clinical lab regarding critical potassium levels for Mr. Anderson. He was seen earlier today in the clinic for evaluation of resistant hypertension. Renal function panel revealed a potassium of 7.0, serum creatinine 1.71, bicarb 19, sodium 140. Confirmed with the lab that specimen was not hemolyzed. I have contacted patient to discuss blood test results and to provideadditional guidance regarding evaluation and management this evening. Patient states that he has had a couple of episodes when he was told that his potassium levels were elevated. Laboratory studies available in Care everywhere revealed a potassium of 4.8 back in October 2021. I have instructed the patient that he should be urgently evaluated in the local ED with repeat electrolyte panel and EKG. Advised to hold lisinopril. Patient is not on any diuretics at this time. Most likely he will require initiation of a loop diuretic. In addition provided brief education regarding avoidance of high potassium foods. He is scheduled to be seen by a dietitian. Addendum: I have contacted patient a couple of hours later after his ER evaluation. I do not have access to outside testing results. However patient reassures me that repeat potassium level was 5.8. He has received his blood pressure medications except lisinopril. Advised to continue holding JAMAR inhibitor untilhis follow-up with my colleague Dr. Carbone. All questions were answered. documented in this encounter Plan of Treatment Not on filedocumented as of this encounter Visit Diagnoses Not on filedocumented in this encounter
--- OUTSIDE RECORDS SUMMARY | 2022-05-02 12:20 | XMS_ITS | Encounter Summary ---
:1950 Author Organization [facility] Address [address] [place] [address] Care Team Providers Name Role Phone Unavailable Primary Care Provider Unavailable Encounter Details Date Type Department Care Team Description 12/24/2021 Hospital Encounter Department of Catherine Carbone Essential Primary; Laboratory Ozzy Lai M.D. 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 How often do you attend pentecostal or gnosticist 1 to 4 times per year 12/20/2021 services? Do you belong to any clubs or organizations such Yes 12/20/2021 as pentecostal groups, unions, fraternal or athletic groups, or [...] place to sleep or slept in a group home (including now)? Education Answer Date Recorded [...] encounter Procedures Procedure Name Priority Date/Time Associated Diagnosis Comme nts ALDOSTERONE, P Routine 12/24/2021 4:20 PM Hypertension Results for this CDT Essential Primar y procedure are in Chronic Kidney the results Disease (CKD), Stage section . 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 This test has not been cleared or approved by the [place] and Drug Administration. Specimen Anatomical Collection Method Collection Time Receive d Time (Source) Location / / Volume Laterality Blood (Blood, 12/24/2021 4:20 PM 12/26/19 7:47 Venous) CDT AM CDT Ozzy Crabone M.D. LAB BLOOD NON ADD-ON Performing Organization Address City/State/ZIP Code Phon e Number [facility] [address] [place], [place] [address] [facility] [place] [address] Laboratory Medicine and Pathology [address] [place] (ABNORMAL) Basic Metabolic Panel (12/24/2021 4:20 PM CDT) Analysis Performed At Patho logist Time Signature Potassium, S 7.0 (CH) 3.6 - 5.2 12/24/2021 DTL mmol/L 6:54 PM CDT Sodium, S 140 135 - 145 12/24/2021 DTL mmol/L 6:54 PM CDT Chloride, S 112 (H) 98 - 107 12/24/2021 DTL mmol/L 6:54 PM CDT Bicarbonate, S 19 (L) 22 - 29 12/24/2021 DTL mmol/L 6:54 PM CDT Anion Gap 9 7 - 15 12/24/2021 DTL 6:54 PM CDT BUN (Blood Urea 58 (H) 8 - 24 12/24/2021 DTL Nitrogen), S mg/dL 6:54 PM CDT Creatinine 1.71 (H) 0.74 - 12/24/2021 DTL 1.35 mg/dL 6:54 PM CDT eGFR-Non 39 (L) >=60 12/24/2021 DTL Black/ mL/min/BSA 6:[address] [facility] Comment: ----ADDITIONAL INFORMATION---- Estimated GFR calculated using the 2009 CKD_EPI creatinine equation. eGFR-Black/ 45 (L) >=60 mL/min/BSA 2021 6:54 PM CDT DTL Comment: ----ADDITIONAL INFORMATION---- Estimated GFR calculated using the 2009 CKD_EPI creatinine equation. Calcium, Total, S 9.3 8.8 - 10.2 mg/dL 12/24/2021 6:54 PM CDT DTL Glucose, S 116 70 - 140 mg/dL 12/24/2021 6:54 PM CDT D TL Specimen Anatomical Collection Method Collection Time Receive d Time (Source) Location / / Volume Laterality Blood (Blood, 12/24/2021 4:20 PM 12/25/19 4:54 Venous) CDT PM CDT Ozzy Carbone M.D. LAB BLOOD ADD-ON Performing Organization Address City/State/ZIP Code Phon e Number [facility] - [address] [place], [place] [address] [facility] [place] [address] Laboratories-[facility] [address] Aldosterone (12/24/2021 4:20 PM CDT) P athologist Signature Aldosterone, P 8.3 <=21 ng/dL 12/26/2021 [facility] 2:26 PM CDT Comment: ----ADDITIONAL INFORMATION---- Reference range for patients 11 years an d older is based on upright A.M. collection from subjects without sodium restrictions. This test was developed and its performa nce characteristics determined by [facility] in a manner consistent with CLIA requirements. This test has not been cleared or approved by the [place] and Drug Administration. Specimen Anatomical Collection Method Collection Time Receive d Time (Source) Location / / Volume Laterality Blood (Blood, 12/24/2021 4:20 PM 12/26/19 Venous) CDT 10:01 AM CDT Authorizing Provider Result Rajan Carbone M.D. LAB BLOOD NON ADD-ON Performing Organization Address City/[facility] Code Phon e Number [facility] [address] [place] [address] [place] [address] Laboratory Medicine and Pathology [address] [place] [address] Dr. CHE Renin Activity (12/24/2021 4:20 PM CDT) athologist Signature Renin Activity, 18 ng/mL/h 12/26/2021 [facility] 5:59 PM CDT Comment: ----REFERENCE VALUE---- (Peripheral vein specimen) Na-deplete, upright: ??Mean: 5.9 ??Range: 2.9-10.8 Na-replete, upright: ??Mean: 1.0 ??Range: < or =0.6-3.0 ----ADDITIONAL INFORMATION---- Testing performed by Liquid Chromatograp hy-Tandem Mass Spectrometry (LC-MS/MS). This test was developed and its performa nce characteristics determined by [facility] in a manner consistent with CLIA requirements. This test has not been cleared or approved by the [place] and Drug Administration. Specimen Anatomical Collection Method Collection Time Receive d Time (Source) Location / / Volume Laterality Blood (Blood, 12/24/2021 4:20 PM 12/26/19 6:59 Venous) CDT AM CDT Authorizing Provider Result Rajan Carbone M.D. LAB BLOOD NON ADD-ON Performing Organization Address City/[facility]/ZIP Code Phon e Number [facility] [place] [phone] [facility] [place] [address] Laboratory Medicine and Pathology [address] [place] [address] Dr. 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
--- OUTSIDE RECORDS SUMMARY | 2022-05-02 12:20 | XMS_ITS | Encounter Summary ---
:1950 Author Organization [facility] Address [address] [place] [address] Care Team Providers Name Role Phone Unavailable Primary Care Provider Unavailable Reason for Visit Reason Comments Patient Education Encounter Details Date Type Department Care Team Description 12/30/2021 Clinical Communication Department of Elizabeth Benitez ent Education Nutrition in [facility], [place], [place] [address] [facility] [address] [place] [phone] Social History Tobacco Use Types Packs/Day Years [...] 12/20/2021 relatives? How often do you attend confucianism or hoahaoism 1 to 4 times per year 12/20/2021 services? Do you belong to any clubs or organizations such Yes 12/20/2021 as confucianism groups, unions, fraternal or athletic groups, or [...] place to sleep or slept in a fpc (including now)? Education Answer Date Recorded What is the highest level of school Bachelor's degree (e.g., BA, AB, 12/20/2021 you have completed or the highest BS) degree you have received? Sex Assigned at Date Recorded Male 12/20/2021 1:42 AM CDT documented as of this encounter Miscellaneous Notes Telephone Encounter - Debra Hamlin - 12/30/2021 1:37 PM CDT The following patient education was mailed to patient to the address on file. INTERVENTION Education: Guidelines on Controlling Sodium; Low/High potassium fruit/vegetable sheet documented in this encounter Plan of Treatment Not on filedocumented as of this encounter Visit Diagnoses Not on filedocumented in this encounter
--- OUTSIDE RECORDS SUMMARY | 2022-05-02 12:20 | XMS_ITS | Encounter Summary ---
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 [facility] Diabetes Mellitus Type 1 (HCC) [address] [place] [address] Referral ID Status Reason Start Date Expiration Date Visits Requ ested Visits Authorized [id number] Closed 12/24/2021 12/24/2022 1 1 Scheduling Instructions This appointment should ideally be sched uled AFTER the Community Coordinator Consults, but must at least be scheduled 48 hours afte r 24-hour urine collection is complete. Virtual visit is acceptable for this titian visit. Outpatient (Routine) - Closed Specialty Diagnoses / Procedures Referred By Contact Refer red To Contact Diagnoses Hypertension Essential Primary Chronic Kidney Disease (CKD), Stage 3a Glomerular Filtration Rate (GFR) 45 To 59 (HCC) Atherosclerosis Of Autologous Vein Coronary Artery Bypass Graft With Documented Spasm (HCC) Ozzy Carbone M.D. [facility] Diabetes Mellitus Type 1 (HCC) [address] Procedures US Kidneys [place] [address] Referral ID Status Reason Start Date Expiration Date Visits Requ ested Visits Authorized [id number] Closed 12/24/2021 12/24/2022 1 1 Specialty Diagnoses / Procedures Referred By Contact Refer kellie To Contact Ozzy Carbone M.D. [facility] [address] [place], [place] [phone] Referral ID Status Reason Start Date Expiration Date Visits Requ ested Visits Authorized Outpatient (Routine) - Closed Specialty Diagnoses / Procedures Referred By Contact Refer kellie To Contact Nephrology and Ozzy Carbonei on Hypertension Tee [place] [address] [place] [address] Referral ID Status Reason Start Date Expiration Date Visits Requ ested Visits Authorized [id number] Closed 12/24/2021 12/24/2022 1 1 Reason for Visit Reason Comments Hypertension Appointment Request (Routine) - Closed Specialty Diagnoses / Procedures Referred By Contact Refer kellie To Contact Nephrology and Diagnoses Hypertension Essential Primary Hypertension Referral ID Status Reason Start Date Expiration Date Visits Requ ested Visits Authorized [id number] Closed 11/07/2021 11/07/2022 1 1 Encounter Details Date Type Department Care Team Description 12/24/2021 Comprehensive Visit Division of Catherine Carbone Essential Primary (Primary Dx); Nephrology and Ozzy Lai, Chronic Kidne y Disease (CKD), Stage 3a Glomerular Filtration Rate (GFR) 45 To 59 (HCC); Hypertension in M.D. Atherosclerosis Of Autologous Vein Coron micaela Artery Bypass Graft With Documented Spasm (HCC); [address] Diabetes Mellitus Type 1 (HCC) [place], [place] [address] [place] [phone] [place], [place] [phone] (Work) [phone] Social History Tobacco Use Types Packs/Day Years [...] 12/20/2021 relatives? How often do you attend orthodoxy or zoroastrianism 1 to 4 times per year 12/20/2021 services? Do you belong to any clubs or organizations such Yes 12/20/2021 as orthodoxy groups, unions, fraternal or athletic groups, or [...] place to sleep or slept in a jail (including now)? Education Answer Date Recorded What is the highest level of school Bachelor's degree (e.g., BA, AB, 12/20/2021 you have completed or the highest BS) degree you have received? Sex Assigned at Date Recorded Male 12/20/2021 1:42 AM CDT documented as of this encounter Last Filed Vital Signs Vital Sign Reading Time Taken Comments Blood Pressure 136/66 12/24/2021 8:42 AM CDT Pulse 60 12/24/2021 8:42 AM CDT Temperature 35.1 ??C (95.2 ??F) 12/24/2021 8:09 AM CDT Respiratory Rate - - Oxygen Saturation - - Inhaled Oxygen Concentration - - Weight 101 kg (222 lb 7.1 oz) 12/24/2021 8:09 AM CDT Height 181.1 cm (5' 11.3) 12/24/2021 8:09 AM CDT Body Mass Index 30.77 12/24/2021 8:09 AM CDT documented in this encounter H&P Notes Ozzy Carbone M.D. - 12/24/2021 8:30 AM CDT CHIEF COMPLAINT Resistant hypertension SUBJECTIVE HISTORY OF PRESENT ILLNESS Mr. Anderson is a 71 y.o. male accompanied by his . He would like to get his blood pressure undercontrol. He keeps careful records and shows me frequent blood pressure recordings showing better blood pressures in the morning. The blood pressures begin rising around four in the afternoon. So far, aan evaluation for secondary causes has been negative. It sounds like that included aldosterone measurement. He has a strong family history of hypertension in his maternal grandfather who of a myocardial infarction, multiple uncles, aunts, siblings and both sons. He has had coronary artery problems requiring a pacemaker, stenting and bypass grafting. No myocardial infarction. He has hyperlipidemia on rosuvastatin. He has type 1 diabetes mellitus on insulin with some type 2 features as well. He has symptoms suggestive of peripheral diabetic neuropathy (and ? restless leg syndrome) and has had laser treatments fordiabetic retinopathy. He is not known to have diabetic nephropathy. He has been on a variety of blood pressure medications which have not controlled his blood pressure adequately. Current medications are noted below. He has been off and on clonidine which may have increased the lability of his blood pressure. He has not had a stroke. He has been told that he has mild chronic kidney disease. He wears a CPAP at night and tolerates it reasonably well. Medications Current Outpatient Medications: ??? alpha lipoic acid 100 mg capsule, Take 100 mg by mouth 2 (two) times a day. Total of 200mg, Disp: , Rfl: ??? amLODIPine (NORVASC) 10 mg tablet, amlodipine 10 mg tablet 10mg 1/day, Disp: , Rfl: ??? aspirin 325 mg tablet, aspirin 325 mg tablet 325mg 1/day, Disp: , Rfl: ??? carvediloL (COREG) 12.5 mg tablet, carvedilol 12.5 mg tablet, Disp: , Rfl: ??? copper (PARAGARD T 380A UTRN), copper 2mg 1/day, Disp: , Rfl: ??? cyanocobalamin, vitamin B-12, (VITAMIN B12) 1,000 mcg lozenge lozenge, cyanocobalamin (vit B-12)1,[address] 1 TABLET UNDER THE TONGUE ONCE DAILY, Disp: , Rfl: ??? ferrous sulfate (SLOW IRON) 140 mg (45 mg iron) ER tablet, Take 45 mg of iron by mouth daily., Disp: , Rfl: ??? gabapentin (NEURONTIN) 300 mg capsule, gabapentin 300 mg capsule, Disp: , Rfl: ??? hydrALAZINE (APRESOLINE) 25 mg tablet, hydralazine 25 mg tablet TAKE 1 TABLET BY MOUTH 3 TIMES DAILY ALONG WITH 50MG TABLET FOR TOTAL DOSE OF 75MG, Disp: , Rfl: ??? hydrALAZINE (APRESOLINE) 50 mg tablet, Take 75 mg by mouth. Pt is taking 75 mg daily. Is not an option when trying to select., Disp: , Rfl: ??? insulin lispro 100 unit/mL injection, Humalog U-100 Insulin 100 unit/mL subcutaneous solution USING UP TO 135UNITS EVERY DAY VIA INSULIN PUMP., Disp: , Rfl: ??? isosorbide mononitrate (IMDUR) 60 mg 24 hr tablet, isosorbide mononitrate ER 60 mg tablet,extended release 24 hr, Disp: , Rfl: ??? lisinopriL (PRINIVIL,ZESTRIL) 10 mg tablet, lisinopril 10 mg tablet 10mg 1/day, Disp: , Rfl: ??? melatonin 10 mg capsule, Take by mouth., Disp: , Rfl: ??? rosuvastatin (CRESTOR) 40 mg tablet, rosuvastatin 40 mg tablet, Disp: , Rfl: ??? sertraline (ZOLOFT) 50 mg tablet, sertraline 50 mg tablet, Disp: , Rfl: ??? turmeric-turmeric root extract 450-50 mg capsule, Take by mouth., Disp: , Rfl: ??? ferrous sulfate 324 mg (65 mg iron) DR tablet, Take 140 mg of iron by mouth., Disp: , Rfl: Review of Systems Constitutional: Positive for fatigue and night sweats. ENT: Positive for difficulty hearing. Respiratory: Positive for dyspnea. Cardiovascular: Positive for swelling in the legs or feet. Gastrointestinal: Positive for diarrhea. Genitourinary: Positive for erectile dysfunction. Hematologic: Positive for bruises or bleeds easily. Musculoskeletal: Positive for muscle pain/stiffness. Neurological: Positive for numbness or shooting pain in hands, arms, legs, or feet and loss of balance or tendency to fall easily. The following systems were negative: Skin, Eyes No past medical history on file. No past surgical history on file. Social History: reports that he has been smoking cigarettes. He has never used smokeless tobacco. Family History: family history is not on file. OBJECTIVE VITAL SIGNS BP 136/66 Pulse 60 Temp (!) 35.1 ??C (Tympanic) Ht 181.1 cm Wt 101 kg BMI 30.77 kg/m?? Physical Exam General: Alert, oriented cooperative. He has mild generalized obesity with a BMI of 30. Eyes: Pupils equal and light reactive. ENT:Oropharynx partially open. Mucus membranes well hydrated. Tympanic membranes normal. Thyroid: Normal. Lymph nodes: Normal Lungs: Clear. Heart: Well-healed sternotomy. Pacemaker in left upper anterior chest wall. No murmur, rub or gallop. No carotid or renal artery bruits. Jugular venous pressure not visible at 30 degrees elevation. Abdomen: No flank masses, tenderness, rebound, guarding or organomegaly. Rectal: Not examined Extremities: No edema. Integument: No rash. Musculoskeletal: No synovitis. Neurological: Right handed. No asterixis. Gait normal. No results found for any previous visit. Current Outpatient Medications: ??? alpha lipoic acid 100 mg capsule, Take 100 mg by mouth 2 (two) times a day. Total of 200mg, Disp: , Rfl: ??? amLODIPine (NORVASC) 10 mg tablet, amlodipine 10 mg tablet 10mg 1/day, Disp: , Rfl: ??? aspirin 325 mg tablet, aspirin 325 mg tablet 325mg 1/day, Disp: , Rfl: ??? carvediloL (COREG) 12.5 mg tablet, carvedilol 12.5 mg tablet, Disp: , Rfl: ??? copper (PARAGARD T 380A UTRN), copper 2mg 1/day, Disp: , Rfl: ??? cyanocobalamin, vitamin B-12, (VITAMIN B12) 1,000 mcg lozenge lozenge, cyanocobalamin (vit B-12)1,[address] 1 TABLET UNDER THE TONGUE ONCE DAILY, Disp: , Rfl: ??? ferrous sulfate (SLOW IRON) 140 mg (45 mg iron) ER tablet, Take 45 mg of iron by mouth daily., Disp: , Rfl: ??? gabapentin (NEURONTIN) 300 mg capsule, gabapentin 300 mg capsule, Disp: , Rfl: ??? hydrALAZINE (APRESOLINE) 25 mg tablet, hydralazine 25 mg tablet TAKE 1 TABLET BY MOUTH 3 TIMES DAILY ALONG WITH 50MG TABLET FOR TOTAL DOSE OF 75MG, Disp: , Rfl: ??? hydrALAZINE (APRESOLINE) 50 mg tablet, Take 75 mg by mouth. Pt is taking 75 mg daily. Is not an option when trying to select., Disp: , Rfl: ??? insulin lispro 100 unit/mL injection, Humalog U-100 Insulin 100 unit/mL subcutaneous solution USING UP TO 135UNITS EVERY DAY VIA INSULIN PUMP., Disp: , Rfl: ??? isosorbide mononitrate (IMDUR) 60 mg 24 hr tablet, isosorbide mononitrate ER 60 mg tablet,extended release 24 hr, Disp: , Rfl: ??? lisinopriL (PRINIVIL,ZESTRIL) 10 mg tablet, lisinopril 10 mg tablet 10mg 1/day, Disp: , Rfl: ??? melatonin 10 mg capsule, Take by mouth., Disp: , Rfl: ??? rosuvastatin (CRESTOR) 40 mg tablet, rosuvastatin 40 mg tablet, Disp: , Rfl: ??? sertraline (ZOLOFT) 50 mg tablet, sertraline 50 mg tablet, Disp: , Rfl: ??? turmeric-turmeric root extract 450-50 mg capsule, Take by mouth., Disp: , Rfl: ??? ferrous sulfate 324 mg (65 mg iron) DR tablet, Take 140 mg of iron by mouth., Disp: , Rfl: DIAGNOSTIC FINDINGS ASSESSMENT / PLAN #1 Hypertension, probably resistant #2 Type 1 diabetes mellitus on insulin, with history of retinopathy and neuropathy #3 Coronary artery disease status post stenting, bypass, pacemaker #4 History of chronic kidney disease, stage III A #5 Obstructive sleep apnea, on CPAP We will do an evaluation for secondary causes of hypertension including hormonal and renal artery stenosis. We will meet again to discuss results and recommendations. He needs to see a blood pressure nurse to learn how to take his blood pressure at home correctly and check the home monitor that he brought with him. He needs to see a dietitian to get his weight down and be sure he is following a DASH diet. Fortunately his is a dietitian and has been very helpful in the past in this regard. We will not make any adjustments in his blood pressure medications today, but when we meet again with test results, we will begin medication adjustments, unless further testing is indicated. He is agreeable with the plan. Ozzy Carbone M.D. Total time 75 minutes documented in this encounter Plan of Treatment Scheduled Referrals Name Type Priority Associated Diagnoses Order S farzad Nephrology nurse Outpatient Referral Routine Expe cted: visit (clinic) 12/24/2021 (Approximate), Expires: 03/26/2023 Patient Education - Outpatient Referral Routine Hypertension E xpected: Hypertension Essential Primar y 12/24/2021 education visit Chronic Kidney (Approxima te), (clinic) Disease (CKD), Stage Expires : 3a Glomerular 03/26/2023 Filtration Rate (GFR) 45 To 59 ( HCC) Atherosclerosis Of Autologous Vein Coronary Artery Bypass Graft With Documented Spasm (HCC) Diabetes Mellitus Type 1 (HCC) Nutrition - Outpatient Referral Routine Hypertension Expected : Nephrology medical Essential [place] guy 12/24/2021 nutrition therapy Chronic Kidney (Approxi mate), consult (clinic) Disease (CKD), Stage Exp ires: 3a Glomerular 03/26/2023 Filtration Rate (GFR) 45 To 59 ( HCC) Atherosclerosis Of Autologous Vein Coronary Artery Bypass Graft With Documented Spasm (HCC) Diabetes Mellitus Type 1 (HCC) documented as of this encounter Results NEP Blood pressure check 24 hr (12/31/2021 4:02 PM CDT) Specimen (Source) Anatomical Location Collection Method / Collectio n Time Received Time / Laterality Volume Narrative This result has an attachment that is no t available. Ozzy Carbone M.D. PFT ORDERABLES Performing Organization Address City/State/ZIP Code Phon e Number MMODAL US Kidneys with Renal Artery Doppler (12/27/2021 [...] no high-grade stenosis Ozzy ALEXIS US PROCEDURES (ABNORMAL) Urinalysis with Microscopic: Urine, Midstream (12/24/2021 4:26 PM CDT) [facility] Method Time Signature Source Urine, Urine, 12/24/2021 DTL Midstream 4:40 PM CDT Color, U Yellow 12/24/2021 DTL 4:40 PM CDT Clarity, U Clear 12/24/2021 DTL 4:40 PM CDT Protein, U 21 <26 mg/dL 12/24/2021 DTL 5:35 PM CDT Protein/Osmol 0.42 (H) <0.42 12/24/2021 DTL ality ratio 7:20 PM CDT Predicted 24 413 mg/24 h 12/24/2021 DTL Hr Protein 7:20 PM CDT Predicted 131-1300 mg/24 h 12/24/2021 DTL Range 7:20 PM CDT Specimen Anatomical Collection Method Collection Time Receive d Time (Source) Location / / Volume Laterality Urine (Urine, 12/24/2021 4:26 PM 12/25/19 22 4:40 Midstream) CDT PM CDT Ozzy Carbone M.D. LAB URINE ORDERABLES Performing Organization Address City/[facility] Phon e Number [facility] - [address] [place], [place] [address] [place] [address] [address] (ABNORMAL) Albumin, Random, Urine (12/24/2021 4:26 PM CDT) athologist Signature Albumin, 86.3 mg/L 12/25/2021 DT Random, U 9:53 AM CDT Comment: ----ADDITIONAL INFORMATION---- This test has been modified from the man ufacturer's instructions. Its performance characteri stics were determined by [facility] in a manner co nsistent with CLIA requirements. This test has not bee n cleared or approved by the U.S. Food and Drug Admin istration. Creatinine 117 mg/dL 12/24/2021 5:35 PM CDT DTL Albumin/Creatinine Ratio 74 (H) <17 mg/g 12/25/2021 9:53 AM CDT DT Specimen Anatomical Collection Method Collection Time Receive d Time (Source) Location / / Volume Laterality Urine (Urine, 12/24/2021 4:26 PM 12/26/19 7:14 Midstream) CDT AM CDT Ozzy Carbone M.D. LAB URINE ORDERABLES Performing Organization Address City/[facility]/ZIP Code Phon e Number [facility] - [address] [place], [place] [address] [place], [place] [phone] [place] [address] Metanephrines, Fractionated, Free (12/24/2021 4:20 PM CDT) athologist Signature Normetanephrine 0.59 <0.90 12/26/2021 SDSC , Free nmol/L 1:01 PM CDT Metanephrine, 0.33 <0.50 12/26/2021 SDSC Free nmol/L 1:01 PM CDT Comment: ----ADDITIONAL INFORMATION---- This test was developed and its performa nce characteristics determined by [facility] in a manner consistent with CLIA requirements. This test has not been cleared or approved by the U.S. Jorge d and Drug Administration. Specimen Anatomical Collection Method Collection Time Receive d Time (Source) Location / / Volume Laterality Blood (Blood, 12/24/2021 4:20 PM 12/26/19 7:47 Venous) CDT AM CDT Ozzy Carbone M.D. LAB BLOOD NON ADD-ON Performing Organization Address City/State/ZIP Code Phon e Number [facility] [address] [place], [place] [address] [facility] [place] [address] Laboratory Medicine and Pathology [address] [...] 12/24/2021 DTL Black/ mL/min/BSA 6:54 PM CDT Fijian Comment: ----ADDITIONAL INFORMATION---- Estimated GFR calculated using [...] M.D. LAB BLOOD ADD-ON Performing Organization Address City/[facility] Phon e Number [facility] - [address] [place], [place] [address] [facility] [place] [address] Laboratories-[facility] [address] Aldosterone (12/24/2021 4:20 PM CDT) athologist Signature Aldosterone, P 8.3 <=21 ng/dL 12/26/2021 [facility] 2:26 PM CDT Comment: ----ADDITIONAL INFORMATION---- Reference range for patients 11 years an d older is based on upright A.M. collection from subjects without sodium restrictions. This test was developed and its performa nce characteristics determined by [facility] in a manner consistent with CLIA requirements. This test has not been cleared or approved by the U.S. Jorge d and Drug Administration. Specimen Anatomical Collection Method Collection Time Receive d Time (Source) Location / / Volume Laterality Blood (Blood, 12/24/2021 4:20 PM 12/26/19 Venous) CDT 10:01 AM CDT Ozzy Carbone M.D. LAB BLOOD NON ADD-ON Performing Organization Address City/[facility] Code Phon e Number [facility] [address] [place] [address] [facility] [place] [address] Laboratory Medicine and Pathology [address] [place] Renin Activity (12/24/2021 4:20 PM CDT) athologist Signature Renin Activity, 18 ng/mL/h 12/26/2021 [facility] P 5:59 PM CDT Comment: ----REFERENCE VALUE---- (Peripheral vein specimen) Na-deplete, upright: ??Mean: 5.9 ??Range: 2.9-10.8 Na-replete, upright: ??Mean: 1.0 ??Range: < or =0.6-3.0 ----ADDITIONAL INFORMATION---- Testing performed by Liquid Chromatograp hy-Tandem Mass Spectrometry (LC-MS/MS). This test was developed and its performa nce characteristics determined by [facility] in a manner consistent with CLIA requirements. This test has not been cleared or approved by the U.S. Jorge d and Drug Administration. Specimen Anatomical Collection Method Collection Time Receive d Time (Source) Location / / Volume Laterality Blood (Blood, 12/24/2021 4:20 PM 12/26/19 6:59 Venous) CDT AM CDT Ozzy Carbone M.D. LAB BLOOD NON ADD-ON Performing Organization Address City/State/ZIP Code Phon e Number [facility] [address] [place] [address] [facility] [place] [address] Laboratory Medicine and Pathology [address] [place] documented in this encounter Visit Diagnoses Diagnosis Hypertension Essential Primary - Primary Chronic Kidney Disease (CKD), Stage 3a G lomerular Filtration Rate (GFR) 45 To 59 (HCC) Atherosclerosis Of Autologous Vein Coron micaela Artery Bypass Graft With Documented Spasm (HCC) Diabetes Mellitus Type 1 (HCC) Hypertension Essential Primary Chronic Kidney Disease (CKD), Stage 3a G lomerular Filtration Rate (GFR) 45 To 59 (HCC) Atherosclerosis Of Autologous Vein Coron micaela Artery Bypass Graft With Documented Spasm (HCC) Diabetes Mellitus Type 1 (HCC) documented in this encounter
--- OUTSIDE RECORDS SUMMARY | 2022-05-02 12:20 | XMS_ITS | Encounter Summary ---
:1950 Author Organization [facility] Address [address] [place] [address] Care Team Providers Name Role Phone Unavailable Primary Care Provider Unavailable Encounter Details Date Type Department Care Team Description 12/24/2021 Orders Only Division of Nephrology and Lazaro Combs, Hypertension in [place] [address] [facility] [address] [place] [phone] (Wo rk) Social History Tobacco Use Types [...] 12/20/2021 relatives? How often do you attend mormon or sabianist 1 to 4 times per year 12/20/2021 services? Do you belong to any clubs or organizations such Yes 12/20/2021 as mormon groups, unions, fraternal or athletic groups, or [...] place to sleep or slept in a skilled nursing (including now)? Education Answer Date Recorded What [...]
--- OUTSIDE RECORDS SUMMARY | 2022-05-02 12:20 | XMS_ITS | Encounter Summary ---
:1950 Author Organization [facility] Address [address] [place] [address] Care Team Providers Name Role Phone Unavailable Primary Care Provider Unavailable Encounter Details Date Type Department Care Team Description 12/27/2021 Diagnostic Division of Nephrology Ozzy Carbone M.D. [address] [place] [phone] Hypertension Essential Primary; and Hypertension in Kelsey Tang [address] [place] [phone] Chronic Kidney Disease (CKD), Stage 3a G lomerular Filtration Rate (GFR) 45 To 59 (HCC); [place], [place] Atherosclerosis Of Autologou s Vein Coronary Artery Bypass Graft With Documented Spasm (HCC); [address] [place] [address] Diabetes Mellitus Type 1 ([place]) [place] [phone] Social History Tobacco Use Types Packs/Day Years [...] 12/20/2021 relatives? How often do you attend confucianist or adventism 1 to 4 times per year 12/20/2021 services? Do you belong to any clubs or organizations such Yes 12/20/2021 as confucianist groups, unions, fraternal or athletic groups, or [...] place to sleep or slept in a detention (including now)? Education Answer Date Recorded What is the highest level of school Bachelor's degree (e.g., BA, AB, 12/20/2021 you have completed or the highest BS) degree you have received? Sex Assigned at Date Recorded Male 12/20/2021 1:42 AM CDT documented as of this encounter Miscellaneous Notes Addendum Note - Michael Quiroz - 12/27/2021 1:00 PM CDT Addended by: MICHAEL QUIROZ on: 12/31/2021 04:15 PM Modules accepted: Level of Service documented in this encounter Plan of Treatment Not on filedocumented as of this encounter Procedures Procedure Name Priority Date/Time Associated Diagnosis Comme nts NEP BLOOD PRESSURE Routine 12/31/2021 4:02 PM Hypertension Ess ential CHECK 24 HR CDT Primary Chronic Kidney Disease (CKD), Stage 3a Glomerular Filtration Rate (GFR) 45 To 59 (HCC) Atherosclerosis Of Autologous Vein Coronary Artery Bypass Graft With Documented Spasm (HCC) Diabetes Mellitus Type 1 (HCC) documented in this encounter Results NEP Blood pressure check 24 hr (12/31/2021 4:02 PM CDT) Specimen (Source) Anatomical Location Collection Method / Collectio n Time Received Time / Laterality Volume Narrative This result has an attachment that is no t available. Ozzy Carbone M.D. PFT ORDERABLES Performing Organization Address City/State/ZIP Code Phon e Number MMODAL documented in this encounter Visit Diagnoses Diagnosis Hypertension Essential Primary Chronic Kidney Disease (CKD), Stage 3a G lomerular Filtration Rate (GFR) 45 To 59 (HCC) Atherosclerosis Of Autologous Vein Coron micaela Artery Bypass Graft With Documented Spasm (HCC) Diabetes Mellitus Type 1 (HCC) documented in this encounter
--- OUTSIDE RECORDS SUMMARY | 2022-05-02 12:20 | XMS_ITS | Encounter Summary ---
:1950 Author Organization [facility] Address [address] [place] [address] Care Team Providers Name Role Phone Unavailable Primary Care Provider Unavailable Encounter Details Date Type Department Care Team Description 12/24/2021 Hospital Encounter Department of Catherine Carbone Essential Primary; Laboratory Ozzy Lai M.D. 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 How often do you attend buddhist or bahai 1 to 4 times per year 12/20/2021 services? Do you belong to any clubs or organizations such Yes 12/20/2021 as buddhist groups, unions, fraternal or athletic groups, or [...] Name Priority Date/Time Associated Diagnosis Comme nts DIPSTICK, U Routine 12/24/2021 4:26 PM Results f or this CDT procedure are i n the results section. MICROSCOPIC Routine 12/24/2021 4:26 PM Results f or this AUTOMATED CDT procedure are i n the results section. PH, U Routine 12/24/2021 4:26 PM Results f or this CDT procedure are i n the results section. ALBUMIN, RANDOM, U Routine 12/24/2021 4:26 PM Hypertension Res ults for this CDT Essential Primar y procedure are in Chronic Kidney the results Disease (CKD), Stage section . 3a Glomerular Filtration Rate (GFR) 45 To 59 (HCC) Atherosclerosis Of Autologous Vein Coronary Artery Bypass Graft With Documented Spasm (HCC) Diabetes Mellitus Type 1 (HCC) OSMOLALITY, U Routine 12/24/2021 4:26 PM Results for this CDT procedure are i n the results section. URINALYSIS WITH Routine 12/24/2021 4:26 PM Hypertension Result s for this MICROSCOPIC CDT Essential Primar y procedure are in Chronic Kidney the results Disease (CKD), Stage section . 3a Glomerular Filtration Rate (GFR) 45 To 59 (HCC) Atherosclerosis Of Autologous Vein Coronary Artery Bypass Graft With Documented Spasm (HCC) Diabetes Mellitus Type 1 (HCC) documented in this encounter Results Dipstick, Urine (12/24/2021 4:26 PM CDT) [facility] gist Method Time Signature Hemoglobin, Negative Negative 12/24/2021 DTL QL, U 5:09 PM CDT Leukocyte Negative Negative 12/24/2021 DTL Esterase, U 5:09 PM CDT Nitrite, U Negative Negative 12/24/2021 DTL 5:09 PM CDT Ketone, U Negative Negative 12/24/2021 DTL mg/dL 5:09 PM CDT Glucose, U Negative Negative 12/24/2021 DTL mg/dL 5:09 PM CDT Specimen Anatomical Collection Method Collection Time Receive d Time (Source) Location / / Volume Laterality Urine 12/24/2021 4:26 PM 2 4:40 CDT PM CDT Ozzy Carbone M.D. LAB URINE ORDERABLES Performing Organization Address City/[facility]/ZIP [facility] [place] [facility] - [address] [place], [place] [address] [place] [address] [facility] pH, Urine (12/24/2021 4:26 PM CDT) athologist Signature pH, U 5.0 4.5 - 8.0 12/24/2021 7:20 DTL PM CDT Specimen Anatomical Collection Method Collection Time Receive d Time (Source) Location / / Volume Laterality Urine 12/24/2021 4:26 PM 2 4:40 CDT PM CDT Ozzy Carbone M.D. LAB URINE ORDERABLES Performing Organization Address City/[facility] Phon e Number [facility] - [address] [place], [place] [address] [place] [address] [facility] Osmolality, Urine (12/24/2021 4:26 PM CDT) athologist Signature Osmolality, U 499 150 - 1150 12/24/2021 DTL mOsm/kg 7:20 PM CDT Specimen Anatomical Collection Method Collection Time Receive d Time (Source) Location / / Volume Laterality Urine 12/24/2021 4:26 PM 2 4:40 CDT PM CDT Ozzy Carbone M.D. LAB URINE ORDERABLES Performing Organization Address City/[facility] Phon e Number [facility] - 200 [place], [place] [address] [facility] [place] [address] Laboratories[address] Microscopic Automated (12/24/2021 4:26 PM CDT) P athologist Signature Microscopy Normal 12/24/2021 5:09 DTL PM CDT WBC 1-3 /hpf 12/24/2021 5:09 DTL PM CDT Comment: ----REFERENCE VALUE---- 1-3 ??(Males) 1-10 (Females) Specimen Anatomical Collection Method Collection Time Receive d Time (Source) Location / / Volume Laterality Urine 12/24/2021 4:26 PM 2 4:40 CDT PM CDT Authorizing Provider Result Rajan Carbone M.D. LAB URINE ORDERABLES Performing Organization Address City/[facility] Phon e Number [facility] - [address] [place], [place] [address] [place] [address] [address] (ABNORMAL) Urinalysis with Microscopic: Urine, Midstream (12/24/2021 4:26 PM CDT) Patholo gist Method Time Signature Source Urine, Urine, 12/24/2021 [...] Laterality Urine (Urine, 12/24/2021 4:26 PM 12/25/19 4:40 Midstream) CDT PM CDT Authorizing Provider Result Rajan Carbone M.D. LAB URINE ORDERABLES Performing Organization Address City/[facility]/ZIP [facility] [place]on e Number [facility] - [address] [place], [place] [address] [place] [address] [place] [address] [address] (ABNORMAL) Albumin, Random, Urine (12/24/2021 4:26 PM CDT) athologist Signature Albumin, 86.3 mg/L 12/25/2021 DTL Random, U 9:53 AM CDT Comment: ----ADDITIONAL INFORMATION---- This test has been modified from the tito magaña's instructions. Its performance characteri stics were determined by [facility] in a manner co nsistent with CLIA requirements. This test has not bee n cleared or approved by the U.S. Food and Drug Admin istration. Creatinine 117 mg/dL 12/24/2021 5:35 PM CDT DTL Albumin/Creatinine Ratio 74 (H) <17 mg/g 12/25/2021 9:53 AM CDT DTL Specimen Anatomical Collection Method Collection Time Receive d Time (Source) Location / / Volume Laterality Urine (Urine, 12/24/2021 4:26 PM 12/26/19 7:14 Midstream) CDT AM CDT Ozzy Carbone M.D. 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
--- OUTSIDE RECORDS SUMMARY | 2022-05-02 12:20 | XMS_ITS | Encounter Summary ---
:1950 Author Organization [facility] Address [address] [place] [address] Care Team Providers Name Role Phone Unavailable Primary Care Provider Unavailable Reason for Referral Outpatient (Routine) - Closed Specialty Diagnoses / Procedures Referred By Contact Refer red To Contact Diagnoses Pain [facility] Procedures Echo Transthoracic (TTE) C.N.P. [address] [place] [phone] Referral ID Status Reason Start Date Expiration Date Visits Requ ested Visits Authorized [id number] Closed 10/18/2021 10/18/2022 1 1 Reason for Visit Outpatient (Routine) - Closed Specialty Diagnoses / Procedures Referred By Contact Refer red To Contact Diagnoses Pain [facility] Procedures Echo Transthoracic (TTE) C.N.P. [address] [place] [phone] Referral ID Status Reason Start Date Expiration Date Visits Requ ested Visits Authorized [id number] Closed 10/18/2021 10/18/2022 1 1 Encounter Details Date Type Department Care Team Description 12/31/2021 Hospital Encounter Department of Nydia Cueto Pain Chest Cardiovascular Diseases in [place], C.N.P. [place], [place] 200 [facility] 200 [place] [phone] Social History Tobacco Use Types Packs/Day Years [...] 12/20/2021 relatives? How often do you attend yarsani or zoroastrianism 1 to 4 times per year 12/20/2021 services? Do you belong to any clubs or organizations such Yes 12/20/2021 as yarsani groups, unions, fraternal or athletic groups, or [...] Name Priority Date/Time Associated Diagnosis Comme nts (TTE) 2D ECHO Routine 12/31/2021 10:59 AM Pain Chest Results for this DOPPLER COLOR AND CDT procedure are in CONTRAST the results section. documented in this encounter Results (TTE) 2D ECHO DOPPLER COLOR AND CONTRAST (12/31/2021 10:59 AM CDT) [facility] gist Method Time Signature Ejection Fraction 50 MC CV EIMS Mid-Ascending Aorta 34 MC CV EIMS Wall Motion Score 1.69 MC CV EIMS Index LV Mass Index 122 MC CV EIMS LV End-Diastolic 61 MC CV EIMS Diameter LV End-Systolic 42 MC CV EIMS Diameter LV End-Diastolic 206 MC CV EIMS Volume LV End-Systolic 103 MC CV EIMS Volume MV E Velocity 1 MC CV EIMS MV A Velocity 0.50 MC CV EIMS MV E/A 2 MC CV EIMS MV e' Velocity 0.08 MC CV EIMS Medial MV e' Velocity 0.10 MC CV EIMS Lateral MV E/e' Medial 12.50 MC CV EIMS MV E/e' Lateral 10 MC CV EIMS Left ventricular 44 MC CV EIMS stroke volume index Cardiac Output 5.77 MC CV EIMS Cardiac Index 2.61 MC CV EIMS LV Interventricular 11 MC CV EIMS Septal Wall Thickness LV Posterior Wall 10 MC CV EIMS Thickness LV Relative Wall 33 MC CV EIMS Thickness TAPSE 16 MC CV EIMS Tricuspid Annular S? 0.09 MC CV EIMS TR Vmax 2.70 MC CV EIMS RA Pressure 5 MC CV EIMS RV Systolic Pressure 34 MC CV EIM S Estimated diastolic 11 MC CV EIMS pulmonary artery pressure Aortic valve area 2.60 MC CV EIMS Aortic Valve 0.68 MC CV EIMS Dimensionless Index LA Volume Index 38 MC CV EIMS Aortic Valve 1.50 MC CV EIMS Systolic Peak Velocity Anatomical Region Laterality Modality Echocardiography Specimen (Source) Anatomical Collection Method Collection Time Re ceived Time Location / / Volume Laterality 12/31/2021 9:45 AM CDT Impressions 12/31/2021 4:22 PM CDT LEFT VENTRICLE:Moderately enlarged left ventricular chamber size. Abnormal left ventricular geometry with ??eccentric left ventricular hypertrophy. Left ventricular mass index by 2D 122 g/m2. Calculated 2-D biplane volumetric left ventricular ejection fraction 50%. Left ventricular cardiac i ndex 2.61 l/min/m2. 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 Indeterminate left ventricular filling p ressure. RIGHT VENTRICLE:Normal right ventricular chamber size. Mildly reduced right ventricular systolic function. Estimated right ventricular systolic pressure 34 mmHg (systolic blood pressure 132 mmHg). ATRIA:Mildly enlarged left atrial size. Left atrial volume index 38 ml/m2. Normal right atrial size by visual estimate. CARDIAC VALVES:Trileaflet aortic valve. Thickened aortic valve. Trivial aortic valve regurgitation. Thickened mitral valve. Mild mitral valve regurgitation. Normal pulmonary valve. Normal pulmonary valve systolic velocities. Trivial pulmonary valve regurgitation. Normal tricuspid valve. M ild tricuspid valve regurgitation. OTHER ECHO FINDINGS:Normal inferior vena cava size with normal inspiratory collapse (>50%). Normal mid ascending aorta diameter of 34 mm. Abdominal aorta incompletely visualized. Normal abdominal aor ta Doppler flow pattern. No atrial level shunt by color flow imaging. No intracardiac mass or th rombus, but the left atrial appendage cannot be visualized adequately with transthoracic echo to exclude thrombus in this location. Prominent anterior epicardial fat layer. No ??pericardial effusion. For the complete report, see the Order-L evel Documents. Narrative 12/31/2021 4:22 PM CDT For the complete report, see the Order-Level Documents. Final Impressions 1. 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 2. Left ventricular cardiac index 2.61 l /min/m2. 3. Normal right ventricular chamber size , mildly reduced systolic function, estimated right ventricular systolic pressure 34 mmHg (systolic blood pressure 132 mmHg). 4. No hemodynamically significant valvul ar heart disease. 5. No ??pericardial effusion. 6. Normal inferior vena cava size with n ormal inspiratory collapse (>50%). 7. There are no previous [facility] ech ocardiograms available for comparison. Procedure Note Addy Sewell M.D. - 12/31/2021Formatti ng of this note might be different from the original. For the complete report, see the Order-L evel Documents. Final Impressions 1. 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 2. Left ventricular cardiac index 2.61 l /min/m2. 3. Normal right ventricular chamber size , mildly reduced systolic function, estimated right ventricular systolic pressure 34 mmHg (systolic blood pressure 132 mmHg). 4. No hemodynamically significant valvul ar heart disease. 5. No pericardial effusion. 6. Normal inferior vena cava size with n ormal inspiratory collapse (>50%). 7. There are no previous [facility] ech ocardiograms available for comparison. Findings LEFT VENTRICLE:Moderately enlarged left ventricular chamber size. Abnormal left ventricular geometry with eccentric left ventricular hypertrophy. Left ventricular mass index by 2D 122 g/m2. Calculated 2-D biplane volumetric left ventricular ejection fra ction 50%. Left ventricular cardiac index 2.61 l/min/m2. 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 Indeterminate left ventricular filling pressure. RIGHT VENTRICLE:Normal right ventricular chamber size. Mildly reduced right ventricular systolic function. Estimated right ventricular systolic pressure 34 mmHg (systolic blood pressure 132 mmHg). ATRIA:Mildly enlarged left atrial size. Left atrial volume index 38 ml/m2. Normal right atrial size by visual estimate. CARDIAC VALVES:Trileaflet aortic valve. Thickened aortic valve. Trivial aortic valve regurgitation. Thickened mitral valve. Mild mitral valve regurgitation. Normal pulmonary valve. Normal pulmonary valve systolic velocities. Trivial pulmonary valve regu rgitation. Normal tricuspid valve. Mild tricuspid valve regurgitation. OTHER ECHO FINDINGS:Normal inferior vena cava size with normal inspiratory collapse (>50%). Normal mid ascending aorta diameter of 34 mm. Abdominal aorta incompletely visualized. Normal abdominal aorta Doppler flow pattern. No atrial level shunt by color flow imaging. No intracardiac mass or thrombus, but the left atrial appendage cannot be visualized adequately with transthoracic echo to exclude thrombus in this location. Prominent anterior epicardial fat layer. No perica rdial effusion. For the complete report, see the Order-L evel Documents. Nydia Cueto APRN, C.N.P. CV ECHO PROCEDURES documented in this encounter Visit Diagnoses Diagnosis Pain Chest documented in this encounter Administered Medications Inactive Administered Medications - up to 3 most recent administrations Medication Order MAR Action Action Date Dose Rate Site sodium chloride 0.9 % injection 10 Given 12/31/2021 10:35 AM CDT 10 mL mL 10 mL, intravenous, As needed, line care, Starting on Thu12/31/21 at 1034, Peripheral Intravenous Catheter and Rapid Infusion Catheter, prior to blood sampling, post blood transfusion or post blood sampling sulfur hexafluoride microspheres injection Given 12/31/2021 10:3 5 AM CDT 2 mL (LUMASON) intravenous, As needed, contrast, Starting on Thu12/31/21 at 1035, See protocol. Reconstitute each 25 mg vial with 5 mL NS. documented in this encounter
--- OUTSIDE RECORDS SUMMARY | 2022-05-02 12:20 | XMS_ITS | Encounter Summary ---
:1950 Author Organization [facility] Address [address] [place] [address] Care Team Providers Name Role Phone Unavailable Primary Care Provider Unavailable Reason for Visit Reason Comments NARF review for 11/08/21 Encounter Details Date Type Department Care Team Description 11/07/2021 Clinical Division of Provider, NARF review for Communication Nephrology and Unknown 11/08/21 Hypertension in [place], [place] [address] [place] [address] Social History Tobacco Use Types Packs/Day Years Used Date Smoking Tobacco: Never Assessed Alcohol Habits Answer Date Recorded How often [...] How often do you attend sabianist or taoist 1 to 4 times per [...] place to sleep or slept in a longterm (including now)? Sex Assigned at Date Recorded Male 12/20/2021 1:42 AM CDT documented as of this encounter Miscellaneous Notes Telephone Encounter - Malachi Weinstein M.D. - 11/08/2021 8:49 AM CDT This patient can be seen with a routine appointment for hypertension. Please order following tests: CMP, CBC with diff, Cystatin C, magnesium, phosphorus, uric acid, aldosterone, renin, AM. cortisol, plasma metanephrines, urinalysis with microscopic analysis, random urine albumin, random urine sodium.The patient will also need an 18 hour ambulatory blood pressure monitoring test. A Doppler based renal ultrasound will also be necessary (rationale would be to rule out renal artery stenosis and renal vascular hypertension). Please have all of these tests completed prior to patient's appointment so that they can be reviewed on the day of the appointment and subsequent appropriate treatment and or vanessa tional investigation decisions made for the patient. HITESH Weinstein MD Telephone Encounter - Ginny Cheng - 11/07/2021 5:42 PM CDT New Patient Indication: Send Response to: DULCE PRADO SCHEDULING Nephrology & Hypertension ARF Name: Nikita Anderson [facility] Number: [id number] Birthdate: 1950 Email: [email or web address] Terms & Conditions I have read the Nephrology and Hypertension Model of Care as noted above and agree to the process outlined: Yes Demographics Legal First Name: Nikita Preferred First Name: Nikita Hoffman Initial: W Last Name: Justin Siddiqi # (without dashes): [id number] date: 1950 Who is filling out this form: Patient Who is requesting that you have an evaluation by the Kidney and Hypertension (High Blood Pressure) specialist: Other Healthcare Provider List name, specialty, address, and office phone number: Dr. Itzel Solis M [facility], [address] [facility] [address] [place] [address]. [phone] Reason for Requesting the Appointment / Medical Concern What are your goals for your visit at [facility]: to discover a cause for this rise and offer some answers to others in my family. Describe your main medical concerns. Late afternoon/evening blood pressure rise 160-180 Have you previously been evaluated for this concern: Yes What was the outcome of this evaluation for this concern: My endroconoligist per my request tested me for Hyperaldosterone with mid day labs which were normal, However my BP during this time range is normally fine. Secondary Medical Concern Are there secondary medical concerns? Yes Describe your secondary medical concerns: Continuing heart issues Have you previously been evaluated for this secondary medical concern: Yes What was the outcome of this evaluation for this secondary medical concern: 3.Stints in 2014, Triplebypass . pacemaker 10/29 Additional Medical Concern Are there additional medical concerns: No Nephrology Relevant History / Information Have you been diagnosed with a kidney disease: No Have you been diagnosed with hypertension (high blood pressure): Yes Are you diabetic: Yes Have you been diagnosed with kidney stones: No Have you had a kidney biopsy at another facility? Results from a previous biopsy will help [facility]'s care team prepare for your visit and may eliminate the need for an additional kidney biopsy: No Are you on dialysis: No Have you had a kidney transplant: No Are you being referred for kidney transplantation: No If you have advanced kidney diseases, are you interested in discussing or meeting with the kidney transplant team while at [facility]: No Please list any current medications that you take for a kidney or hypertension (high blood pressure)related conditions: Amlodipine, Carvediol, hydralazine, isocobide mononitrate, Lisinopril, Are there any specialists that you or your local provider feel you should see while you are at [facility]: No Availability Please list below any specific dates we should not use for scheduling within the next 12 weeks. Please be mindful of your availability, rescheduling appointments will not guarantee a consolidated itinerary: I am not available on certain dates List the dates that are NOT available: 01/30-02/11 What is the best phone number to reach you at: [phone] documented in this encounter Plan of Treatment Not on filedocumented as of this encounter Visit Diagnoses Not on filedocumented in this encounter
--- OUTSIDE RECORDS SUMMARY | 2022-05-02 12:20 | XMS_ITS | Encounter Summary ---
:1950 Author Organization [facility] Address [address] [place] [id number] Care Team Providers Name Role Phone Unavailable Primary Care Provider Unavailable Reason for Referral Outpatient (Routine) - Closed Specialty Diagnoses / Procedures Referred By Contact Refer red To Contact Diagnoses Pain Chest Nydia Cueto APRN, [facility] Procedures DX Chest AP or PA and Lateral 2 Views C.N.P. [address] [place] [address] [phone] Referral ID Status Reason Start Date Expiration Date Visits Requ ested Visits Authorized [id number] Closed 10/18/2021 10/18/2022 1 1 [facility] Outpatient (Routine) - Closed Specialty Diagnoses / Procedures Referred By Contact Refer red To Contact Diagnoses Pain Chest Nydia Cueto APRN, [facility] Procedures Echo Transthoracic (TTE) C.N.P. [address] [place] [address] [phone] Referral ID Status Reason Start Date Expiration Date Visits Requ ested Visits Authorized [id number] Closed 10/18/2021 10/18/2022 1 1 [facility] Reason for Visit Reason Comments Triage Encounter Details Date Type Department Care Team Description 10/17/2021 Clinical Communication Department of Community Placement Worker, [facility] Cardiovascular Medicine Tee Martinez in [facility] [address] [place] [phone] Social History Tobacco Use Types Packs/Day [...] 12/20/2021 relatives? How often do you attend scientologist or restoration 1 to 4 times per year 12/20/2021 services? Do you belong to any clubs or organizations such Yes 12/20/2021 as scientologist groups, unions, fraternal or athletic groups, or [...] a [place] [facility] (including now)? Sex Assigned at Date Recorded Male 12/20/2021 1:42 AM CDT documented as of this encounter Miscellaneous Notes Addendum Note - Tonny Mcdowell R.N. - 10/18/2021 10:37 AM [facility] Addended by: TONNY MCDOWELL on: 10/18/2021 10:37 AM Modules accepted: Orders [facility] Telephone Encounter - Nydia Cueto APRN, C.N.P. - 10/17/2021 1:33 PM [facility] TRIAGE NOTE FOR GENERAL CARDIOLOGY 70 y.o. y/o male from [id number] [place] [phone] LMD referred for Chest pain s/p PPM 10/15/2021 Hospital dismissal note after pacemaker implantation for symptomatic bradycardia October 15, 2021 Discharge Diagnoses: 1. Symptomatic bradycardia with junctional rhythm - s/p PPM placement 10/15/2021. 2. Hyperkalemia, mild. 3. Hypoglycemic episode. Related to NPO status. 4. Hypertension (benign essential; h/o difficult to control BP's). 5. Anemia, suspect chronic component. Other Chronic Medical Problems: 1. DM1 with polyneuropathy. 2. CAD s/p CABG (04/2021). 3. CHF (biventricular systolic, HFrEF). 4. CARLITOS. 5. CKD stage 3 6. Depression/anxiety. 7. Obesity. 8. H/o prostate cancer 9. H/o post-CABG atrial tachycardia versus atrial fib. Admission History: Please see the H&P by Fadi Horn MD on 10/14/2021 for complete details. Briefly, Nikita Anderson is a 70 year old male admitted on 10/14/2021 with past medical history significant for obesity, DM1 with neuropathy, HTN, CAD s/p CABG (04/2021), CHF, CKD and h/o prostate cancer, who initially presented to [facility] 10/14/2021 with dizziness and found to be bradycardic with junctional rhythm. Temporary pacemaker placed and transferred to [facility] 10/14/2021 for management. Problem Oriented Hospital Course: ?? Symptomatic bradycardia with junctional rhythm - s/p PPM placement 10/15/2021. * Initially presented to [facility] 10/14 with dizziness for the last few days RAIL OPERATOR; of note, clonidine wasrecently increased RAIL OPERATOR and also on carvedilol RAIL OPERATOR. On initial evaluation at [facility], ECG initially showed marked sinus bradycardia and repeat ECG showed junctional rhythm. Trop negative. Evaluated by Cardiology and underwent temporary pacemaker placement 10/14 and subsequently transferred to [facility]. * RAIL OPERATOR carvedilol and clonidine held on admit. * 10/15: HR's improved after holding carvedilol and clonidine, but PPM still recommended as will benefit from BB in the future. PPM placed 10/15. - Follow-up with Cardiology outpatient. Hyperkalemia * Potassium level of 5.4 on admit 10/14. * Potassium normalized 10/15. ?? CAD s/p CABG (04/2021). CHF (biventricular systolic, HFrEF). Hypertension (benign essential; h/o difficult to control BP's). [RAIL OPERATOR: amlodipine 10 mg daily; clonidine 0.2 mg BID (recently increased RAIL OPERATOR); carvedilol 6.25 mg BID;hydralazine 75 mg TID; ISMN 60 mg daily; lisinopril 10 mg daily.] * Echo 05/2021 showed LVEF 46% with WMA's; RV moderate decreased systolic function. * Clonidine had recently been increased from 0.1 mg to 0.2 mg BID RAIL OPERATOR. RAIL OPERATOR clonidine and carvedilol held on admit. * Carvedilol restarted at increased 10/16. - Continue ASA, rosuvastatin, PRN NTG. - Continue amlodipine 10 mg daily, carvedilol 12.5 mg BID (increased), hydralazine 75 mg TID, ISMN 60 mg daily, lisinopril 10 mg daily. - Stop clonidine at discharge. - Follow-up outpatient. - Pt has follow-up with [facility] regarding labile and resistant hypertension. Anemia, suspect chronic component. * Hgb 11.2 on admit. No overt clinical signs of major bleeding. Recent Labs Lab 10/15/21 0530 10/14/21 1231 HGB 10.2* 11.2* - Monitor CBC outpatient. DM1. Polyneuropathy. Hypoglycemic episode. [RAIL OPERATOR: insulin pump basal rate 1.1U/hr 7873-2083, 1.4U/hr 2241-4761; boluses for carbs (carb ratios varied based on time) and for correction.] * Hgb A1C 7.4 10/14/2021. * Hypoglycemic am 10/15 related to NPO status. Recent Labs Lab 10/16/21 0542 10/15/21 0530 10/14/21 1919 10/14/21 1231 GLC 102* 64* -- 100* A1C -- -- 7.4* -- - Continue RAIL OPERATOR regimen. CARLITOS. * Chronic and stable. - Continue CPAP. CKD stage 3 * Baseline creatinine between 1.20-1.40. * Cr 1.37 on admit 10/14. Recent Labs Lab 10/16/21 0542 10/15/21 0530 10/14/21 1231 CR 1.22 1.41* 1.37* - Monitor BMP outpatient. - Avoid nephrotoxic medications. Depression/anxiety. - Continue sertraline. H/o prostate cancer * S/p prostate reduction. - Continue follow up with outpatient Urology. H/o post-CABG atrial tachycardia versus atrial fib. * Per EMR, no recurrence on 30 day event monitor. - Monitor on telemetry. ?? Obesity. Body mass index is 29.67 kg/m??. - Needs to pursue aggressive dietary and lifestyle modifications. Clinically Significant Risk Factors Present on Admission # Overweight: Estimated body mass index is 29.67 kg/m?? as calculated from the following: Height as of an earlier encounter on 10/14/21: 1.803 m (5' 11). Weight as of this encounter: 96.5 kg (212 lb 11.9 oz). CLINICAL HISTORY: 70-year-old male with history of coronary artery disease and previous CABG who is admitted with symptomatic sinus/junctional bradycardia. The patient received a temporary pacemaker yesterday. Permanent there is no reversible cause and pacemaker implantation has been recommended. The risks and benefits of the procedure were discussed in detail; the patient expressed understanding and provided consent. RESULTS: A. Implanted leads: (i) RV lead: [employer] lead model 7841, serial [id number]. R-wave sensing 9.4 mV. Pacing threshold 0.4 V at 0.4 msec. Pacing impedance 755 ohms. (ii) RA lead: [employer] lead model 7840, serial [id number]. P-wave sensing 5.8 mV. Pacing threshold 0.4 V at 0.4 msec. Pacing impedance 550 ohms. B. Pulse generator: [employer] model L[address], serial [id number]. C. Programming: DDDR 60/130 bpm CONCLUSIONS: 1. Successful implantation of MRI-compatible dual-chamber permanent pacemaker. 2. No apparent in-lab complication. ?? [facility] SORTER?? Coronary angiogram July 03, 2021 found in Care everywhere 1. ??No angiographic explanation seen for patient's echocardiogram findings. 2. ??The DOUGLASS-LAD and SVG-RPDA are widely patent 3. ??The SVG-OM 3 is stump occluded, with some pinching of the northway vessel at the distal anastomosis which may compromise distal OM 3 flow. ?? However, this is a relatively small myocardial territory and would not explain patient's echocardiographic findings. 4. ??Creek vessel CAD is otherwise unchanged from pre-CABG (03/2021) angiogram with moderate-severe mid LAD disease, ostial in-stent LINUX SECURITY ADMINISTRATOR of a small OM 2, and moderate distal RCA/proximal RPDA disease. 5. ??Mildly elevated LVEDP of 18 mmHg 6. ??Basal to mid inferior hypokinesis on ventriculogram. ??However, global LVEF is normal around 55-60% by visual estimation Nuclear stress test June 24, 2021 found in Care everywhere ?The nuclear stress test is abnormal. ?There is a small area of mild ischemia in the basal anterior segment(s) of the left ventricle. ?Left ventricular function is moderately reduced. ?The left ventricular ejection fraction at stress is 39%.??Visually LVEF appears better. ?A prior study was conducted on 12/24/2020. ?Compared to prior study dated 12/24/2020 the moderate inferior and inferolateral ischemia noted in prior study is not seen in present study. In present small size mild??intensity basal anterior ischemia is seen which was not noted in prior study. SERAFIN TRIAGE RECOMMENDATIONS: General cardiology TTE, ECG, device interrogation, chest x-ray, labs [facility] Telephone Encounter - William Lombardo - 10/17/2021 12:19 PM CST General Cardiology Triage Questionnaire Information gathered by PASS upon initial Appointment Request Triage/Record Review ?? Internal/external: External ?? Self Referral or Provider Referral: [facility] Primary Care Provider (name/facility): [facility] Community Placement Worker (name/facility): Dr. Anatoliy Jackson Please specify the primary cardiac concern(s) that you would like to address during your visit. If you have multiple concerns, please identify which is your top priority. Hypertension and High Blood Pressure, patient is Diabetic and using insulin pump Are you experiencing any cardiac symptoms that you would like evaluated? (Examples: chest pain, shortness of breath, palpitations, lightheadedness/fainting). Yes, describe: shortness or breath, little chest pain,lightheadedness, tightness on lower of chest Have you had prior evaluation or treatment of these concerns and/or symptoms? Yes, describe: Pacemaker was install 10/15 due to lightheadedness Have you ever been diagnosed with any of the following: Heart Conditions: ??? Implanted Device: Pacemaker Breathing conditions: ??? None Have you had any of the following cardiac tests/procedures within the last 2 years? None of the above Do you have any limitations in physical activity? Yes, describe: due to pacemaker unable to lift over 10lbs [facility] documented in this encounter Plan of Treatment Not on filedocumented as of this encounter Results DX Chest AP or [...] upper thora cic vertebral bodies. Nydia Cueto APRN, C.N.P. IMG DIAGNOSTIC IMAGING PRO CEDURES (TTE) 2D ECHO DOPPLER COLOR AND CONTRAST (12/31/2021 10:59 AM CDT) [facility] Method Time Signature Ejection Fraction 50 MC [...] collapse (>50%). 7. There are no previous [facility] ech ocardiograms available for comparison. Procedure Note [...] collapse (>50%). 7. There are no previous [facility] ech ocardiograms available for comparison. Findings LEFT [...] Nydia Cueto APRN, C.N.P. CV ECHO PROCEDURES (ABNORMAL) Comprehensive Metabolic Panel (12/31/2021 9:26 AM [...] 12/31/2021 DTL Black/ mL/min/BSA 11:11 AM CDT Ukrainian Comment: ----ADDITIONAL INFORMATION---- Estimated GFR calculated using [...] Venous) CDT 10:13 AM CDT Nydia Cueto APRN, C.N.P. LAB BLOOD ADD-ON Performing Organization Address City/State/ZIP Code Phon e Number [facility] - [address] [place], [place] [address] [facility] [place] [address] Laboratories-[facility] 200 [facility] (ABNORMAL) CBC with Differential, Blood (12/31/2021 9:26 AM CDT) [facility] Method Time Signature Hemoglobin 10.5 (L) 13.2 [...] 9:45 Venous) CDT AM CDT Nydia Cueto APRN, C.N.P. LAB BLOOD ADD-ON Performing Organization Address City/State/ZIP Code Phon e Number [facility] - [address] [place] [phone] [facility] [place] [address] [facility] [address] [facility] PACER DUAL CHAMBER INTERROGATION WITH PROGRAMMING (12/31/2021 9:03 AM CDT) Component Value Ref Test Analysis Performed At [facility] Method Time Signature Date Time [facility] Interrogation LAB SYSTEM Session Implantable Magnitude Software [facility] Pulse Generator LAB SYSTEM Horologist Apprentice Implantable L[facility] Pulse Generator EL LAB SYSTEM Model Implantable [id number] [facility] Pulse Generator LAB SYSTEM Serial Number Type In [facility] Interrogation LAB SYSTEM Session Clinic Name [facility] LAB SYSTEM Arnegard Implantable Pacemaker [facility] Pulse Generator LAB SYSTEM Type Implantable [id number] [facility] Pulse Generator LAB SYSTEM Implant Date Implantable Lead [employer] FOUND ATION Horologist Apprentice LAB SYSTEM Implantable Lead 7840 Ingevity + FOUNDAT ION Model MRI LAB SYSTEM Implantable Lead [id number] [facility] Serial Number LAB SYSTEM Implantable Lead [id number] [facility] ON Implant Date LAB SYSTEM Implantable Lead Bipolar Lead [facility] Polarity Type LAB SYSTEM Implantable Lead UNKNOWN FOUNDATION Location Detail LAB SYSTEM 1 Implantable Lead Right Atrium [facility] Location LAB SYSTEM Implantable Lead [employer] FOUND ATION Horologist Apprentice LAB SYSTEM Implantable Lead 7841 Ingevity + FOUNDAT ION Model MRI LAB SYSTEM Implantable Lead [id number] [facility] Serial Number LAB SYSTEM Implantable Lead [id number] [facility] ON Implant Date LAB SYSTEM Implantable Lead Bipolar Lead [facility] Polarity Type LAB SYSTEM Implantable Lead UNKNOWN FOUNDATION Location Detail LAB SYSTEM 1 Implantable Lead Right Ventricle FOUND[facility] ION Location LAB SYSTEM Kali Setting DDDR FOUNDATION Mode (NBG Code) LAB SYSTEM Kali Setting 60 {beats}/ FOUNDATION Lower Rate Limit min LAB SYSTEM Kali Setting 130 {beats}/ FOUNDATION Maximum Tracking min LAB SYSTEM Rate Kali Setting 130 {beats}/ FOUNDATION Maximum Sensor min LAB SYSTEM Rate Kali Setting 200.0 ms FOUNDATION SYLVAIN Delay Low LAB SYSTEM Kali Setting 200.0 ms FOUNDATION PAV Delay Low LAB SYSTEM Kali Setting 150.0 ms FOUNDATION PAV Delay High LAB SYSTEM Kali Setting 150.0 ms [facility]OUNDATION SYLVAIN Delay High LAB SYSTEM Kali Setting AT 170 {beats}/ FOUNDATION Mode Switch Rate min LAB SYSTEM Kali Setting AT DDIR FOUNDATION Mode Switch Mode LAB SYSTEM Lead Channel Bipolar [facility]OUNDATION Setting Sensing LAB SYSTEM Polarity Lead Channel 0.25 mV FOUNDATION Setting Sensing LAB SYSTEM Sensitivity Lead Channel Adaptive [facility]ATION Setting Sensing LAB SYSTEM Adaptation Mode Lead Channel Bipolar [facility] Setting Sensing LAB SYSTEM Polarity Lead Channel 0.6 mV FOUNDATION Setting Sensing LAB SYSTEM Sensitivity Lead Channel Adaptive FOUNDATION Setting Sensing LAB SYSTEM Adaptation Mode Lead Channel Bipolar [facility]OUNDATION Setting Pacing LAB SYSTEM Polarity Lead Channel 0.4 ms FOUNDATION Setting Pacing LAB SYSTEM Pulse Width Lead Channel 2.0 V FOUNDATION Setting Pacing LAB SYSTEM Amplitude Lead Channel Adaptive FOUNDATION Setting Pacing LAB SYSTEM Capture Mode Lead Channel Bipolar [facility]OUNDATION Setting Pacing LAB SYSTEM Polarity Lead Channel 0.4 ms FOUNDATION Setting Pacing LAB SYSTEM Pulse Width Lead Channel 1.4 V FOUNDATION Setting Pacing LAB SYSTEM Amplitude Lead Channel Adaptive [facility] Setting Pacing LAB SYSTEM Capture Mode Zone Setting [place] [facility] Type Category LAB SYSTEM Zone Setting 375.0 ms [facility] Detection LAB SYSTEM Interval Zone Setting ATRIAL_FIBRILLATI [facility]OUNDAT[facility] N Type Category ON LAB SYSTEM Zone Setting 352.94 ms [facility] Detection LAB SYSTEM Interval Lead Channel 621.0 ohm [facility] Impedance Value LAB SYSTEM Lead Channel 9.5 mV [facility] Sensing LAB SYSTEM Intrinsic Amplitude Lead Channel 0.8000 V [facility] Pacing Threshold LAB SYSTEM Amplitude Lead Channel 0.4 ms [facility] Pacing Threshold LAB SYSTEM Pulse Width Lead Channel 717.0 ohm [facility] Impedance Value LAB SYSTEM Lead Channel 9.2 mV [facility] Sensing LAB SYSTEM Intrinsic Amplitude Lead Channel 0.9000 V [facility] Pacing Threshold LAB SYSTEM Amplitude Lead Channel 0.4 ms [facility] Pacing Threshold LAB SYSTEM Pulse Width Battery Date [facility] Time of LAB SYSTEM Measurements Battery 168 mo [facility] Remaining LAB SYSTEM Longevity Kali Statistic [id number] [facility] N Date Time Start LAB SYSTEM Kali Statistic [id number] [facility] Date Time End LAB SYSTEM Kali Statistic 74 % [facility] RA Percent Paced LAB SYSTEM Kali Statistic 1 % [facility] RV Percent Paced LAB SYSTEM Episode 0 [facility] Statistic Total LAB SYSTEM Count Episode VT [facility] Statistic Type LAB SYSTEM Category Episode NSVT [facility] Statistic Vendor LAB SYSTEM Type Category Episode [facility] Statistic Total LAB SYSTEM Date Time End Episode 0 FOUNDATION Statistic Recent LAB SYSTEM Count Episode [place] [facility] Statistic Type LAB SYSTEM Category Episode NSVT [facility] Statistic Vendor LAB SYSTEM Type Category Episode [facility] Statistic Recent LAB SYSTEM Date Time End Anatomical Region Laterality Modality Echocardiography Specimen (Source) Anatomical Collection Method Collection Time Re ceived Time Location / / Volume Laterality 12/31/2021 8:59 AM CDT Narrative 01/01/2022 7:46 AM CDT PURPOSE OF VISIT: ??PM check in coordination with cardiology consultation. ?? Pt has not been seen at [facility] before. PRESENTING RHYTHM: ??AP VS @ 60 bpm 1*AV B UNDERLYING RHYTHM: ??sinus kali @ 39 bp m ATRIAL ARRHYTHMIAS: ??none recorded sinc e implant ? Atrial fibrillation burden: ??0% ? VENTRICULAR ARRHYTHMIAS: ??none recorded since implant ?PVC Hamel: ??268 PVC's since 12/18 BATTERY LONGEVITY: ??Expected battery lo ngevity trends reviewed and are stable and consistent with device settin gs and use. SUMMARY: ??All device function appears n ormal. The left pectoral incision is well healed. ??Pt states that since when an adjustment to the MV sensor was made to make it more sensitiv ity to activity that yesterday he went for a 2 mile walk and had a period of chest pain at the beginning o f his walk. ??Per sensor replay, pts HR via atrial pacing was in the 120' s bpm for duration of yesterdays walk. He endorsed still having some SOB with activity. With pt symptoms from walk and recent sensor change, I did not make any changes until seen by cardiology re: the chest pain. Histograms show HR's primarily 60-80 bpm with very small percentage up to 120's bpm. ?? PROGRAMMING CHANGES: ??none EDUCATION: Patient is ready to learn wit h no apparent learning barriers. ?? I explained the interrogation findings a nd follow-up plan; patient asked appropriate questions and expressed unde rstanding. FOLLOW UP LOCATION STATUS: ??Elsewhere ( I) NEXT FOLLOW UP: Next routine follow-up w ill be locally. DEVICE RN: Erik Provider statement: This patient underwe nt device interrogation. I agree that the device interrogation was medica lly indicated to provide appropriate care and continue routine de vice interrogations as indicated. Nydia Cueto APRN, C.N.P. CV IMPLANTABLE CARDIAC DEV ICE documented in this encounter Visit Diagnoses Diagnosis Pain Chest - Primary Pain Chest Pain Chest Pain Chest documented in this encounter
--- OUTSIDE RECORDS SUMMARY | 2022-05-02 12:20 | XMS_ITS | Encounter Summary ---
:1950 Author Organization [facility] Address [address] [place] [address] Care Team Providers Name Role Phone Unavailable Primary Care Provider Unavailable Reason for Visit Appointment Request (Routine) - Closed Specialty Diagnoses / Procedures Referred By Contact Refer red To Contact Cardiovascular Disease Diagnoses Hypertension Fidencio Solis M.D. [address] [place] [address] Referral ID Status Reason Start Date Expiration Date Visits Requ ested Visits Authorized [id number] Closed 10/16/2021 10/16/2022 1 1 Encounter Details Date Type Department Care Team Description 12/31/2021 Comprehensive Visit Department of Zachary Burger [facility] Disease [facility] [place] Coronary Artery Without Angina Pectoris (Primary Dx); Cardiovascular Pantera R, Hyperlipidemi a On Treatment; Medicine in M.D. Diabetes Mellitus Type 1 (HCC); [place], [place] [address] Hypertension Essential Prima ry; [address] Presence Of Coronary Angioplasty Implant And Graft Status Post; [place], [place], Presence Of Ao rtocoronary Bypass Graft [phone] [place] [phone] Social History Tobacco Use Types Packs/Day Years [...] 12/20/2021 relatives? How often do you attend christian or taoist 1 to 4 times per year 12/20/2021 services? Do you belong to any clubs or organizations such Yes 12/20/2021 as christian groups, unions, fraternal or athletic groups, or [...] place to sleep or slept in a usp (including now)? Education Answer Date Recorded What is the highest level of school Bachelor's degree (e.g., BA, AB, 12/20/2021 you have completed or the highest BS) degree you have received? Sex Assigned at Date Recorded Male 12/20/2021 1:42 AM CDT documented as of this encounter Last Filed Vital Signs Vital Sign Reading Time Taken Comments Blood Pressure 149/65 12/31/2021 12:55 PM CDT Pulse - - Temperature - - Respiratory Rate - - Oxygen Saturation - - Inhaled Oxygen Concentration - - Weight 101 kg (221 lb 9 oz) 12/31/2021 12:55 PM CDT Height 182.7 cm (5' 11.93) 12/31/2021 12:55 PM CDT Body Mass Index 30.11 12/31/2021 12:55 PM CDT documented in this encounter Consult Notes Ozzy Fernández M.D. - 12/31/2021 1:15 PM CDT SUBJECTIVE CHIEF COMPLAINT/REASON FOR VISIT Referred by Fidencio Solis M.D. for evaluation. HISTORY OF PRESENT ILLNESS Nikita Anderson is a 71 y.o. male who is being seen today for known coronary artery disease in the setting of DM 1, hypertension, CKD 3A, CARLITOS on CPAP. I have interviewed and examined the patient, reviewed the chart in [facility], discussed with , and agree with findings, exam, impression, and plan in their note of today's date. The following portions of the patient's history were reviewed and updated as appropriate: allergies,current medications, family history, medical history, social history, surgical history, psychiatric history, substance abuse history, problem list, labs, diagnostics tests. I also reviewed pertinent clinical notes in the electronic health record. REVIEW OF SYSTEMS A comprehensive review of systems was completed; pertinent abnormalities are included in the Historyof Present Illness. OBJECTIVE BP 149/65 (BP Location: Left arm, Patient Position: Sitting, Cuff Size: Regular) Ht 182.7 cm Wt 101 kg BMI 30.11 kg/m?? Body mass index is 30.11 kg/m??. PHYSICAL EXAMINATION General: Very pleasant Psychiatric: Oriented to person, place, and time. Eyes: No xanthelasmas or corneal arcus. Nonicteric Skin: No stasis dermatitis or ulceration of the lower extremities. DIAGNOSTICS Chemistry: Lab Results Component Value Date/Time NA 142 12/31/2021 09:26 AM NA 140 10/29/2021 11:25 AM NA 139 08/23/2021 10:11 AM KSERUM 5.3 (H) 12/31/2021 09:26 AM KSERUM 5.2 (H) 08/23/2021 10:11 AM KBLOOD 4.8 10/29/2021 11:25 AM CL 110 (H) 12/31/2021 09:26 AM CL 113 (H) 10/29/2021 11:25 AM BICARB 21 (L) 12/31/2021 09:26 AM BUN 53 (H) 12/31/2021 09:26 AM BUN 49 (H) 10/29/2021 11:25 AM BUN 42 (H) 08/23/2021 10:11 AM CREATININE 1.36 (H) 12/31/2021 09:26 AM CREATININE 1.37 (H) 10/29/2021 11:25 AM CREATININE 1.44 (H) 08/23/2021 10:11 AM EGFRNONBLKAA 52 (L) 12/31/2021 09:26 AM GLUCOSE 49 (Crit L) 12/31/2021 09:26 AM GLUCOSE 127 (H) 10/29/2021 11:25 AM GLUCOSE 102 (H) 08/23/2021 10:11 AM GLUCOSEPOC 180 (H) 04/25/2021 06:41 AM ALKPHOS 59 12/31/2021 09:26 AM ALKPHOS 62 08/23/2021 10:11 AM AST 21 12/31/2021 09:26 AM AST 17 08/23/2021 10:11 AM ALT 18 12/31/2021 09:26 AM BILITOT 0.2 12/31/2021 09:26 AM BILITOT 0.3 08/23/2021 10:11 AM ANIONGAP 11 12/31/2021 09:26 AM ANIONGAP 5 10/29/2021 11:25 AM CALCIUM 9.3 12/31/2021 09:26 AM CALCIUM 8.5 10/29/2021 11:25 AM CALCIUM 9.0 08/23/2021 10:11 AM Lipids: Lab Results Component Value Date/Time CHOL 115 06/06/2021 08:02 AM TRIG 123 06/06/2021 08:02 AM HDL 41 06/06/2021 08:02 AM HDL 31 (L) 12/21/2020 08:28 AM LDLCALC 49 06/06/2021 08:02 AM LDLCALC 34 12/21/2020 08:28 AM ASSESSMENT / PLAN #1 Coronary artery disease-status post PCI and CABG without symptoms # 2 Mixed hyperlipidemia with low HDL # 3 Status post permanent pacemaker implantation # 4 Hypertension, likely resistant # 5 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 Carbone would like to do for his hypertension but would keep amlodipine and carvedilol at least at current doses.If Dr. Carbone would like to switch the rosuvastatin 40 to an agent that may not have as much nephro toxicity, reasonable option would be atorvastatin 40+ ezetimibe 10 mg daily. Strongly encouraged lifestyle change and discussed interval physical activity and Mediterranean diet will send that to him in the portal. Discussed answered his questions. Pantera Burger M.D. - 12/31/2021 1:15 PM CDT GENERAL CARDIOLOGY CLINIC NOTE SUBJECTIVE REFERRING PROVIDER Fidencio Solis REASON FOR VISIT Hypertension; CAD HISTORY OF PRESENT ILLNESS Nikita Anderson is a 71-year-old gentleman that presents for evaluation of hypertension. Medical history is otherwise notable for following: # Coronary artery disease PCI of OM2 and ostial/proximal LCX (04/09/2015 3V CABG (DOUGLASS to LAD, reverse SVG to PDA, reverse SVG to OM2) # Symptomatic bradycardia with junctional escape status post dual chamber pacemaker implantation (10/15/2021) # DM1 with polyneuropathy # Cardiomyopathy # CARLITOS on CPAP therapy # CKD stage 3 # Depression/anxiety. # Obesity. # H/o prostate cancer # Reported history of atrial tachycardia versus atrial fibrillation To summarize the patient's cardiac history, he was initially evaluated locally in December 2020 with symptoms of worsening dyspnea on exertion. Nuclear stress test at that time demonstrated medium-sized area of moderate ischemia in the inferior and inferolateral segments. Subsequent coronary angiogram demonstrated obstructive disease in the LAD and RCA as well as LEAD INFORMATICA DEVELOPER of OM2. The patient underwent bypass surgery based on 04/19/2021 with the DOUGLASS to LAD, reverse SVG to PDA, and reverse SVG to OM2. He reports some improvement in dyspnea following surgery. In April 2021, the patient was admitted locally with weakness and falls in the setting of GENO. He was found to be borderline bradycardic for which beta- blockers were discontinued. Holter monitor later that month demonstrated 2 short episodes of atrial tachycardia versus atrial fibrillation. Over the period of time, the patient required thoracentesis x2 for a pleural effusions. In June 2021, patient underwent a transthoracic echocardiogram that demonstrated a new reduced left ventricular systolic function with ejection fraction 46% and moderate to severe inferior/inferiorseptal wall hypokinesis. Nuclear stress test noting only a small area of mild ischemia in the basal a nterior segment. Patient reports no symptoms at that time. Subsequent angiogram demonstrated patent DOUGLASS to LAD and SVG to RPDA, with a stump occlusion graft to OM. No interventions were performed as it was felt that this graft fed a relatively small myocardial territory, inconsistent with echocardiographic findings. Patient was reportedly asymptomatic at that time and was managed medically. Most recently, the patient in October 2021, the patient presented to emergency department with dizziness and was found to have symptomatic bradycardia associated with sinus node dysfunction with junctional escape rhythm. He underwent dual-chamber pacemaker implantation on 10/25/2021. Transthoracic echocardiogram here demonstrates moderately enlarged left ventricular chamber size with regional wall motion abnormalities including mid left ventricular aneurysmal changes in anterior/anteroseptal segments. He did have some dyspnea on exertion symptoms which improved following pacemakerrate response changes. He has no anginal symptoms or symptomatic concerns at this time. The patient's primary reason for consultation is management of hypertension. He has already been connected with our hypertension clinic and is undergoing evaluation for secondary etiology. He reports home average systolic blood pressure 160. Renal ultrasound demonstrating mild-moderate right stenosis. Patient will follow-up with Hypertension Clinic for further management. I have reviewed and updated the following: Past Medical History, Family History, Social History, andAllergies. Active Home Medications Medication Sig Taking alpha lipoic acid 100 mg capsule Take 100 mg by mouth 2 (two) times a day. Total of 200mg amLODIPine (NORVASC) 10 mg tablet amlodipine 10 mg tablet 10mg 1/day aspirin 325 mg tablet aspirin 325 mg tablet 325mg 1/day carvediloL (COREG) 12.5 mg tablet carvedilol 12.5 mg tablet chlorthalidone (HYGROTON) 25 mg tablet Take 1 tablet (25 mg total) by mouth daily. copper (PARAGARD T 380A [facility]) copper 2mg 1/day cyanocobalamin, vitamin B-12, (VITAMIN B12) 1,000 mcg lozenge lozenge cyanocobalamin (vit B-12) 1,[address] 1 TABLET UNDER THE TONGUE ONCE DAILY ferrous sulfate 324 mg (65 mg iron) DR tablet Take 140 mg of iron by mouth. gabapentin (NEURONTIN) 300 mg capsule gabapentin 300 mg capsule hydrALAZINE (APRESOLINE) 25 mg tablet hydralazine 25 mg tablet TAKE 1 TABLET BY MOUTH 3 TIMES DAILY ALONG WITH 50MG TABLET FOR TOTAL DOSE OF 75MG insulin lispro 100 unit/mL injection Humalog U-100 Insulin 100 unit/mL subcutaneous solution USING UP TO 135UNITS EVERY DAY VIA INSULIN PUMP. isosorbide mononitrate (IMDUR) 60 mg 24 hr tablet isosorbide mononitrate ER 60 mg tablet,extended release 24 hr lisinopriL (PRINIVIL,ZESTRIL) 10 mg tablet lisinopril 10 mg tablet 10mg 1/day melatonin 10 mg capsule Take by mouth. rosuvastatin (CRESTOR) 40 mg tablet rosuvastatin 40 mg tablet sertraline (ZOLOFT) 50 mg tablet sertraline 50 mg tablet turmeric-turmeric root extract 450-50 mg capsule Take by mouth. REVIEW OF SYSTEMS Pertinent items are noted in HPI; all other review of systems was negative. OBJECTIVE VITAL SIGNS BP 149/65 (BP Location: Left arm, Patient Position: Sitting, Cuff Size: Regular) Ht 182.7 cm Wt 101 kg BMI 30.11 kg/m?? PHYSICAL EXAMINATION Constitutional: Oriented to person, place, and time. No acute distress HENT: Conjunctiva not injected Heart: Normal rate, regular rhythm. No murmurs appreciated Lungs: Nonlabored breathing, clear to auscultation bilaterally Abdominal: Soft, non-tender\ Skin: Skin is warm and dry Extremities: No significant edema ASSESSMENT / PLAN # Coronary artery disease PCI of OM2 and ostial/proximal LCX (04/09/2015 3V CABG (DOUGLASS to LAD, reverse SVG to PDA, reverse SVG to OM2) # Symptomatic bradycardia with junctional escape status post dual chamber pacemaker implantation (10/15/2021) # DM1 with polyneuropathy # Cardiomyopathy # CARLITOS on CPAP therapy # CKD stage 3 # Depression/anxiety. # Obesity. # H/o prostate cancer # Reported history of atrial tachycardia versus atrial fibrillation Mr. Anderson is a 71-year-old gentleman who presents for management of hypertension in the setting ofcoronary artery disease with ischemic cardiomyopathy. He has been seen by Hypertension Clinic and isundergoing evaluation for secondary causes of hypertension. Today we focused on his cardiac history and optimization of his care. Primarily, transthoracic echocardiogram demonstrates moderately enlarged left ventricular chamber size with regional wall motion abnormalities and aneurysmal changes. Ejection fraction 50%. The patient is fairly active doing extensive yard work and walks with no anginal sym ptoms. He recently underwent a coronary angiogram in fall 2020 with findings most notable for stump occlusion of graft to OM. I do not feel that angiogram needs to be repeated at this time. We opted focus on medical management. Patient was on low-dose lisinopril which was held recently the setting of hyperkalemia. He is otherwise on carvedilol 12.5 mg twice daily. Ideally, the patient would benefit from up titration of beta-hong and JAMAR inhibitor/ARB. He will continue to work with our hypertension clinic regarding his antihypertensive regimen. Patient is currently on full-dose aspirin daily. I am unable to review any documentation as to reasoning for full-dose aspirin. It would be reasonable to transition to aspirin 81 mg daily, though I suggested the patient touch base with his local cardiology team. He tells me he does have a planned bleph aroplasty this summer/fall, approximately 1 year since bypass surgery. Aspirin may be held perioperatively if needed, with consideration of minimizing time off aspirin therapy. With regards to the patient's possible history of atrial fibrillation, it appears that previous Holter monitor documented less than 1 minute of atrial tachycardia versus atrial fibrillation. This was not again demonstrated on device interrogations since pacemaker implantation. We can continue to monitor on future device interrogations. Reviewing patient's lab work, he did have significant hypoglycemia this morning in the setting of his diabetes mellitus type 1. We did review his glucose monitoring device which reports normalization since that time. Patient will need continued longitudinal care and monitoring of LV function. He is connected with cardiology locally. He may contact our clinic for any future followup. Electronically signed by: Pantera Burger M.D. documented in this encounter Miscellaneous Notes Addendum Note - Pantera Burger M.D. - 12/31/2021 1:15 PM CDT Addended by: PANTERA BURGER on: 01/03/2022 05:07 PM Modules accepted: Level of Service documented in this encounter Plan of Treatment Not on filedocumented as of this encounter Visit Diagnoses Diagnosis Atherosclerotic Heart Disease Of [place] Coronary Artery Without Angina Pectoris - Primary Hyperlipidemia On Treatment Diabetes Mellitus Type 1 (HCC) Hypertension Essential Primary Presence Of Coronary Angioplasty Implant And Graft Status Post Presence Of Aortocoronary Bypass Graft documented in this encounter
--- OUTSIDE RECORDS SUMMARY | 2022-05-02 12:20 | XMS_ITS | Encounter Summary ---
:1950 Author Organization [facility] Address [address] [place] [address] Care Team Providers Name Role Phone Unavailable Primary Care Provider Unavailable Encounter Details Date Type Department Care Team Description 12/31/2021 Hospital Encounter Department of Nydia Cueto Pain Chest Cardiovascular Diseases in [facility] C[facility], [place] [address] [facility] [address] [place] [phone] Social History Tobacco Use Types Packs/Day Years [...] 12/20/2021 relatives? How often do you attend jain or lutheran 1 to 4 times per year 12/20/2021 services? Do you belong to any clubs or organizations such Yes 12/20/2021 as jain groups, unions, fraternal or athletic groups, or [...] Procedure Name Priority Date/Time Associated Comments Diagnosis PACER DUAL CHAMBER Routine 12/31/2021 9:03 AM Pain Chest Res ults for this INTERROGATION WITH CDT procedure are in PROGRAMMING the results section. documented in this encounter Results PACER DUAL CHAMBER INTERROGATION WITH PROGRAMMING (12/31/2021 9:03 AM CDT) Component Value Ref Test Analysis Performed At [facility] gist Range Method Time Signature Date Time [facility] Interrogation LAB SYSTEM Session Implantable [employer] [facility] Pulse Generator LAB SYSTEM Supervisor Printing Shop Implantable L331 ACCOLADE [facility] Pulse Generator EL LAB SYSTEM Model Implantable [id number] [facility] Pulse Generator LAB SYSTEM Serial Number Type In [facility] Interrogation LAB SYSTEM Session Clinic Name [facility] LAB SYSTEM [place] Implantable Pacemaker [facility] Pulse Generator LAB SYSTEM Type Implantable [id number] [facility] Pulse Generator LAB SYSTEM Implant Date Implantable Lead [employer] FOUND ATION Supervisor [employer] LAB SYSTEM Implantable Lead 7840 Ingevity + FOUNDAT ION Model MRI LAB SYSTEM Implantable Lead [id number] [facility] Serial Number LAB SYSTEM Implantable Lead [id number] [facility] ON Implant Date LAB SYSTEM Implantable Lead Bipolar Lead [facility] Polarity Type LAB SYSTEM Implantable Lead UNKNOWN [facility] Location Detail LAB SYSTEM 1 Implantable Lead Right Atrium [facility] Location LAB SYSTEM Implantable Lead [employer] AT[facility] Supervisor [employer] LAB SYSTEM Implantable Lead 7841 Ingevity + FOUNDAT ION Model MRI LAB SYSTEM Implantable Lead [id number] [facility] Serial Number LAB SYSTEM Implantable Lead [id number] [facility] Implant Date LAB SYSTEM Implantable Lead Bipolar Lead [facility] Polarity Type LAB SYSTEM Implantable Lead UNKNOWN [...] Category LAB SYSTEM Zone Setting 375.0 ms [facility] Detection LAB SYSTEM Interval Zone Setting ATRIAL_FIBRILLATI [facility] N Type Category ON LAB SYSTEM Zone Setting 352.94 ms [facility] Detection LAB SYSTEM Interval Lead Channel 621.0 ohm [facility] Impedance Value LAB SYSTEM Lead Channel 9.5 mV [facility] Sensing LAB SYSTEM Intrinsic Amplitude Lead Channel 0.8000 V [facility] Pacing Threshold LAB SYSTEM Amplitude Lead Channel 0.4 ms [facility] Pacing Threshold LAB SYSTEM Pulse Width Lead Channel 717.0 ohm [facility] Impedance Value LAB SYSTEM Lead Channel 9.2 mV [facility] Sensing LAB SYSTEM Intrinsic Amplitude Lead Channel 0.9000 V [facility] Pacing Threshold LAB SYSTEM Amplitude Lead Channel 0.4 ms [facility] Pacing Threshold LAB SYSTEM Pulse Width Battery Date [id number] [facility] Time of LAB SYSTEM Measurements Battery 168 mo [facility] Remaining LAB SYSTEM Longevity Kali Statistic [id number] [facility] N Date Time Start LAB SYSTEM Kali Statistic [id number] [facility] N Date Time End LAB SYSTEM Kali Statistic 74 % [facility] RA Percent Paced LAB SYSTEM Kali Statistic 1 % [facility] RV Percent Paced LAB SYSTEM Episode 0 [facility] Statistic Total LAB SYSTEM Count Episode VT [facility] Statistic Type LAB SYSTEM Category Episode NSVT [facility] Statistic Vendor LAB SYSTEM Type Category Episode [facility] Statistic Total LAB SYSTEM Date Time End Episode 0 [facility] Statistic Recent LAB SYSTEM Count Episode VT [facility] Statistic Type LAB SYSTEM Category Episode NSVT [facility] Statistic Vendor LAB SYSTEM Type Category Episode [id number] [facility] Statistic Recent LAB SYSTEM Date Time End Anatomical Region Laterality Modality Echocardiography Specimen (Source) Anatomical Collection Method Collection Time Re ceived Time Location / / Volume Laterality 12/31/2021 8:59 AM CDT Narrative 01/01/2022 7:46 AM CDT PURPOSE OF VISIT: ??PM check in coordination with cardiology consultation. ?? Pt has not been seen at [facility] before. PRESENTING RHYTHM: ??AP VS @ 60 bpm 1*AV B UNDERLYING RHYTHM: ??sinus kali @ 39 bp m ATRIAL ARRHYTHMIAS: ??none recorded sinc e implant ? Atrial fibrillation burden: ??0% ? VENTRICULAR ARRHYTHMIAS: ??none recorded since implant ?PVC [place]: ??268 PVC's since 12/18 BATTERY LONGEVITY: ??Expected [...] de vice interrogations as indicated. Nydia Cueto APRN C.N.P. CV IMPLANTABLE CARDIAC DEV ICE documented in this encounter Visit Diagnoses Diagnosis Pain Chest documented in this encounter
--- OUTSIDE RECORDS SUMMARY | 2022-05-02 12:20 | XMS_ITS | Encounter Summary ---
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 [facility] Diabetes Mellitus Type 1 (HCC) [address] [place] [phone] Referral ID Status Reason Start Date Expiration Date Visits Requ ested Visits Authorized [id number] Closed 12/24/2021 12/24/2022 1 1 Encounter Details Date Type Department Care Team Description 12/30/2021 Telemedicine Department of Rosi Carbone M.D. [address] [place] [phone] Hypertension Essential Primary; Nutrition in Elizabeth Benitez M.S., RDN, LD [address] [place] [phone] Chronic Kidney Disease (CKD), Stage 3a G lomerular Filtration Rate (GFR) 45 To 59 (HCC); [place], [place] Atherosclerosis Of Autologou s Vein Coronary Artery Bypass Graft With Documented Spasm (HCC); [address] [facility] Diabetes Mellitus Type 1 (HC C) [place] [phone] Social History Tobacco Use Types Packs/Day Years [...] 12/20/2021 relatives? How often do you attend amish or episcopal 1 to 4 times per year 12/20/2021 services? Do you belong to any clubs or organizations such Yes 12/20/2021 as amish groups, unions, fraternal or athletic groups, or [...] place to sleep or slept in a correction (including now)? Education Answer Date Recorded What is the highest level of school Bachelor's degree (e.g., BA, AB, 12/20/2021 you have completed or the highest BS) degree you have received? Sex Assigned at Date Recorded Male 12/20/2021 1:42 AM CDT documented as of this encounter Progress Notes Elizabeth Benitez M.S., RDN, LD - 12/30/2021 9:00 AM CDT CHIEF COMPLAINT/REASON FOR VISIT Hypertension, Chronic kidney disease HISTORY OF PRESENT ILLNESS Met with patient via real-time audio/video technology by sheet writer in [place] to the patient in Home ASSESSMENT Relevant Social and Family History Dieting History: Nikita Anderson reports eating most foods at home, prepares a lot of foods fromscratch. Watching added sodium when cooking/sitting at the table. Eating Environment: Shared responsibility with grocery shopping, eating out 3 times per month Food/Nutrition Related History Breakfast: cereal (raisin Bran, Chex cereal) with milk and added peanuts or an egg, PB and J with toast, fruit-oranges, apples, bananas Lunch: [employer] (meat, cheese, mustard, lettuce) with some fruit Afternoon snack: granola bar, fruit, torito crackers if blood glucose are low; lightly salted peanuts Evening meal (7pm): Protein (frittatas w/veggies; salmon, hamburgers, bratwurst, steak once every two weeks), homemade soups, stews in winter, 1 starch with meals (potatoes, sometimes no starch); Vegetables with meal, fresh vegetables to snack on Bedtime snack: sometimes snacks after dinner. Beverage choices: couple cups of coffee, 1% milk, water, may order unsweetened tea when dining out Salt/Seasoning use: Not using sodium, not using salt substitutes. Using Pepper, herbs from the garden Weight History Ht Readings from Last 1 Encounters: 12/24/21 181.1 cm Wt Readings from Last 1 Encounters: 12/24/21 101 kg BMI Readings from Last 1 Encounters: 12/24/21 30.77 kg/m?? Estimation of Nutritional Needs Weight used for calculations: 101 kg (12/24/21) 1800 calories per day (MSJ basal) PROTEIN Weight:89.6 kg (adjusted body weight (due to obesity)) Protein Range: 0.8 to 1.0 grams/kg Protein Goal: 72-89 grams per day NUTRITION DIAGNOSIS Food- and nutrition-related knowledge deficit related to no prior exposure to specific nutritional guidelines for Hypertension as evidenced by patient questions. Nutrition Prescription/Recommendation 9368-0594 mg sodium diet, Be mindful of higher potassium fruits/vegetables. INTERVENTION Education: Guidelines on Controlling Sodium; Low/High potassium fruit/vegetable sheet See Patient Education Record for information regarding education materials covered today. MONITORING AND EVALUATION: Nutrition parameter to monitor: Food intake Desired Outcome: Maintain nutrition related lab values within target range Patient Goal(s): 1. 9714-6268 mg sodium 2. 72-89 gm protein 3. Select lower potassium foods most often 4. Avoid processed food FOLLOW UP PLAN: Provided name and phone number if questions should arise Time spent with patient (minutes): 45 documented in this encounter Plan of Treatment [...]
--- OUTSIDE RECORDS SUMMARY | 2022-05-02 12:20 | XMS_ITS | Encounter Summary ---
:[address] [facility] Address [address] [place] [id number] Care Team Providers Name Role Phone Unavailable Primary Care Provider Unavailable Reason for Visit Reason Comments Patient Education Encounter Details Date Type Department Care Team Description 12/30/2021 Education Department of Patient Ozyz Carbone M.D. [address] [place] [phone] Hypertension Essential Primary; Education in Laureen Anderson Chronic Kidney Disease (CKD), Stage 3a G lomerular Filtration Rate (GFR) 45 To 59 (HCC); [place], [place] Atherosclerosis Of Autologou s Vein Coronary Artery Bypass Graft With Documented Spasm (HCC); [address] [place] [address] Diabetes Mellitus Type 1 (HC C) [place] [phone] Social History Tobacco Use Types Packs/Day Years [...] 12/20/2021 relatives? How often do you attend latter day or confucianist 1 to 4 times per year 12/20/2021 services? Do you belong to any clubs or organizations such Yes 12/20/2021 as latter day groups, unions, fraternal or athletic groups, or [...] place to sleep or slept in a prison (including now)? Education Answer Date Recorded What [...]
--- OUTSIDE RECORDS SUMMARY | 2022-05-02 12:21 | XMS_ITS | Clinical Summary ---
:1950 Author Organization [facility] [place] [address] Care Team Providers Name Role Phone Anatoliy Jackson MD Primary Care Provider [phone] Peter Gipson MD Unavailable Alvaro Norwood MD Unavailable Francisco Felder MD Unavailable Allergies Active Allergy Reactions Severity Noted Date Comments Epinephrine Palpitations 06/17/2011 Atorvastatin Runny Nose 02/11/2015 Medications Medication Sig Dispensed Refills Start End Status Date Date HUMALOG 100 subcutaneously ? 0 Active UNIT/ML SUBQ CRTG for diabetes 5 blood sugar as directed 0 Active diagnostic 6 (ONETOUCH ULTRA TEST) strip Syringe, by Not Applicable 0 Ac tive Disposable, route. 5 (TUBERCULIN SYRINGE 1CC) 1 mL syrg rosuvastatin Take 1 tablet by 0 Active (CRESTOR) 40 mg mouth at bedtime. 8 tablet durable medical Extra depth 1 Each 3 Ac tive equipment diabetic shoes, 3 9 (DME)Indications: pair tri layer Foot pain, right, accommodative Diabetic inserts. Diagnosis polyneuropathy of foot deformity associated with and diabetic type 2 diabetes Neuropathy. mellitus (HC), Type 2 diabetes mellitus with diabetic neuropathy, with long-term current use of insulin (HC) turmeric-turmeric Take by mouth. 0 Active root extract 450-50 mg cap Blood-Glucose Dexcom G6 Sensor device 0 Active Sensor (Dexcom G6 U UTD FOR CONTINUOUS GLUCOSE MONITORING. CHANGE Q 10 DAYS. Sensor) jamaal Copper Gluconate 2 Take 2 mg by mouth 30 Capsule 2 Active mg once daily. 1 capsuleIndications : Low serum copper for age cyanocobalamin Place 1 Tablet 30 Tablet 2 Active (VITAMIN B12) (1,000 mcg) under 1 1,000 mcg the tongue once sublingual daily. tabletIndications: Low vitamin B12 level medication order CBD Jose 0 Act prasanna composer 1 Ferrous Sulfate Take by mouth. 0 Active 250 mg (50 mg 1 iron) TbER hydrALAZINE 1 pill as needed 0 A ctive (APRESOLINE) 25 mg if blood pressure 1 tabletIndications: over 170 Systolic Essential blood pressure. hypertension Dexcom G6 USE DIRECTED 0 Acti ve Transmitter jamaal FOR CONTINUOUS 1 GLUCOSE MONITORING. CHANGE EVERY 90 DAYS lisinopriL Take 10 mg by 0 Activ e (PRINIVIL; mouth. 1 ZESTRIL) 10 mg tablet CPAPIndications: Resmed CPAP 1 Each 11 A ctive CARLITOS (obstructive machine for home 1 sleep apnea) use at pressure 4-15 cmw, full face mask x1/3month with a full face cushion x1/mo amLODIPine Take 2 Tablets (10 0 Active (NORVASC) 5 mg mg) by mouth once 1 tabletIndications: daily. Essential hypertension isosorbide Take 1 Tablet (60 0 A ctive mononitrate mg) by mouth once 1 (IMDUR) 60 mg daily. extended release tablet 24 hourIndications: S/P CABG x 3 hydrALAZINE 75mg By mouth 90 Tablet 6 Acti ve (APRESOLINE three times daily 2 TABLET) 50 mg for blood tabletIndications: pressure. Essential hypertension melatonin 10 mg Take by mouth. 0 Active cap 2 carvediloL (COREG) Take 1 Tablet 180 Tablet 0 Active 12.5 mg tablet (12.5 mg) by mouth 2 2 times daily with meals. alpha lipoic acid Take 100 mg by 0 Active 100 mg capsule mouth. aspirin (ECOTRIN) Take 1 Tablet (81 0 Active 81 mg enteric mg) by mouth once 2 coated tablet daily with a meal. chlorthalidone 0 Activ e (HYGROTON) 25 mg 2 tablet gabapentin Take 2 pill 120 Capsule 3 Activ e (NEURONTIN) 300 mg (600mg) at 8:30PM 2 capsuleIndications and 2 pills at : Type 2 diabetes bedtime mellitus with diabetic neuropathy, with long-term current use of insulin (HC), Restless legs syndrome (RLS) sertraline TAKE 1 TABLET(50 30 Tablet 0 Ac tive (ZOLOFT) 50 mg MG) BY MOUTH EVERY 2 tabletIndications: MORNING Depression, major, single episode, mild (HC) sertraline TAKE 1 TABLET(50 30 Tablet 0 Di scontinued (ZOLOFT) 50 mg MG) BY MOUTH EVERY 2 022 tabletIndications: MORNING Depression, major, single episode, mild (HC) Active Problems Problem Noted Date CARLITOS PSG 06/2021 AHI-8.7 07/11/2021 Restless legs syndrome (RLS) 07/11/2021 Insomnia, idiopathic 04/04/2021 Overview: March 2021: Dr. Luong took off trazodone and increased gabapentin (neurontin). Iron deficiency anemia 02/15/2021 Adenomatous colon polyp 10/04/2018 Overview: Colonoscopy 09/2018 polyp, repeat in 5 ye ars Malignant neoplasm of prostate 08/12/2018 Depression, major, single episode, mild 08/12/2018 Overview: Aug 2018: starting sertraline (Zoloft), 25 then increase to 50mg. Chronic bursitis of left shoulder 08/12/2018 Overview: Aug 2018: formal physical therapy ordere d. Postoperative anemia due to acute blood loss 6 Mild chronic anemia 04/21/2016 Overview: Apr 2016: Hemoglobin 11.1, periph smear ordered, retic count normal. Postoperative Hemoglobin down to 8.2, did get 1 transfusion in hospital after Surgery. January 2021: Repeat peripheral smear shows microcytic anemia without sign of hemolysis. Iron studies are all normal (in the [place] system). January 2021: HEMOQUANT FECES negative. February 2021: Hematology Consult with Dr. Pepito guardado, labs ordered, recommended decreased alcohol, and blood testing. Possible Bone Marrow Biopsy if no diagnosis found. Non-proliferative diabetic retinopathy, severe, both e yes 09/17/2015 Overview: see Ophthalmology note Sep 2015, Dr. Bruno patel. Diabetic polyneuropathy associated with type 1 diabete s mellitus 06/08/2014 PVD (peripheral vascular disease) with claudication Overview: See scan Sep 2013. Hyperlipidemia LDL goal < 100 10/17/2013 Overview: Years ago had side effects from Atorvast atin (Lipitor) of congestion and post nasal drip. October 2013: Endocrinology LDL 62, on sta tin. December 2014: Endocrinology changed back to Atorvastatin (Lipitor) and increased nasal congestion and post nasal drip. So will change back to Simvastatin (Zocor). Coronary artery disease involving huslia coronary erick ry of huslia heart 06/15/2013 without angina pectoris Overview: June 2013: See scan of abnormal Nucl ear Exercise stress test from . Dr. Plummer recommended angiogram. December 2014: Dr. Vasquez, [place] [employer] recomme nded Angiogram due to abnormal stress test. 01/03/15: Angiogram done and [place], no intervention due to plan to travel to [place], Needs fur to ??consider revascularization?? March 2015: Dr. Lucy Gurrola of [place] [facility] consult, medical vs stenting, Patient going to try medical mgmt for now. 2016: [facility] 2016 with <50% narrowing of the right side, no intervention at angiogram. 04/19/2021: CABG: DOUGLASS to LAD, reverse SV G to PDA, reverse SVG to OM 2. Complicated by postoperative acute kidney injury which improved, bilateral pleural effusions requiring thoracentesis, mild worsening of LV function down to 46%. BPH with urinary obstruction 03/22/2013 Overview: Urology : Dr. Gipson. Follow up in 1 year Mar 2014. NO meds as symptoms not severe enough. 2012: Dr. Gipson, started flomax. September 2015: [facility] recommended MRI of prostate and possible biopsy due to high PSA. October 2015: prostate biopsies negative. Apr 2016: TURP: small amount of prosta te cancer Chronic kidney disease (CKD), stage III (moderate) Overview: Sees Dr. Mena. Creatinine as high as 2 summer 2011. 05/04/12: Creatinine 1.32 and GFR [facility]. Creatinine 1.22 at Endocrinology office 10/12/13. Apr 2016: Creatinine 1.27. GFR 57. May 2016: Creatinine 1.66, GFR Jun: Creatinine 1.14, GFR > 60. August 2019: Creatinine. 1.56, GFR 45 p er Endocrinology labs. Type 1 diabetes mellitus with diabetic neuropathy 03/2011 Overview: Sees Contract Associate Manager, Dr. More. Diagnosis at 27 years old (dx 1977), Per Endocrinology Note Dr. Felder July 2021, likely Type 1. HAs Non-proliferative Severe Diabetic Re tinopathy, July 2013 Laser treatment Essential hypertension 06/17/2011 Overview: February 2016: On amlodipine, carvedilol, cl onidine, [...] Imdur increased to 60mg b y Cardiology. Resolved Problems Problem Noted Date Resolved Date Angina pectoris 03/13/2021 10/28/2021 Encounters Date Type Specialty Care Team Description 04/26/2022 Refill Anatoliy Jackson, Refill Request (Sertraline) 03/27/2022 Refill Anatoliy Jackson Refill Request (Sertraline) 03/19/2022 Orders Only Anatoliy Jackson Outsid e Order ([facility] 03/13/2022) 02/25/2022 Orders Only Lab[facility] 02/25/2022 Travel 02/13/2022 Office Visit Genaro Luong MD Sleep Follow -up (CPAP) 02/13/2022 Travel 02/06/2022 Office Visit Anatoliy Jackson Knee P ain/problem (right) 02/06/2022 Travel 01/31/2022 Orders Only Anatoliy Jackson Outsid e Order from Last 3 Months Immunizations Name Administration Dates Next Due COVID-19 vaccine (Moderna 100mcg/0.5mL) 09/14/2020 PF, MDV Influenza, High-dose Inactivated 04/21/2016 Influenza, High-dose Quadrivalent 06/12/2021 Inactivated Influenza, IIV3 (Age >=3 years) 07/26/2001 Influenza, IIV4 06/08/2014 Influenza, Inactivated IIV3 (Age 65+ 06/08/2019, 08/12/2018, 08/13/2017 Years) Preserv Free Pneumococcal Poly,23-Valent (Pneumovax) 10/27/2017, 06/30/19 97 Pneumococcal conj 13-Valent (Prevnar 13) 09/11/2016 Tdap 03/18/2018, 09/13/2008 Zoster (Shingrix-RZV, recombinant) 10/31/2021, 08/16/2021 Family History Medical History Relation Name Comments Other Father MVA Cancer Maternal Aunt Hypertension Maternal Grandfather Other Maternal Grandfather of Hea rt Attack. Conn's Syndrome. Diabetes type II Maternal Grandmother Hypertension Mother Hypertension Sister Relation Name Status Comments Father Maternal Aunt Maternal Grandfather Maternal Grandmother Mother Sister Social History Tobacco Use Types Packs/Day Years Used Date Never Smoker Smokeless Tobacco: Never Used Tobacco Cessation: Counseling Given: Yes Alcohol Use Standard Drinks/Week Comments Yes 0 (1 standard drink = 0.6 oz pure alcoho l) 2020: <1 per day Alcohol Habits Answer Date Recorded How often do you have a drink containing alcohol? Not asked How many drinks containing alcohol do you have on a Not aske d typical day when you are drinking? How often do you have six or more drinks on one Not asked occasion? Comment: 2020: <1 per day 03/11/2021 Sex Assigned at Date Recorded Not on file Obstetrics History Last Filed Vital Signs Vital Sign Reading Time Taken Comments Blood Pressure 111/54 02/13/2022 4:26 PM CDT Pulse 60 02/13/2022 4:26 PM CDT Temperature 36.2 ??C (97.2 ??F) 01/14/2022 11:50 AM CDT Respiratory Rate 14 01/14/2022 11:50 AM CDT Oxygen Saturation 98% 02/13/2022 4:26 PM CDT Inhaled Oxygen Concentration - - Weight 98.4 kg (217 lb) 02/13/2022 4:26 PM CDT Height 180 cm (5' 10.87) 02/06/2022 10:30 AM CDT Body Mass Index 30.38 02/06/2022 10:30 AM CDT Plan of Treatment Upcoming Encounters Date Type Specialty Care Team Description 05/09/2022 [place] [address] [place], [place] [address] (Wo rk) Health Maintenance Due Date Last Done Comments Medicare Wellness for age 65+ 02/26/2021 02/27/2020, 2018 Depression screening for age 12+ 03/11/2022 03/11/2021, , 07/29/2019, Additional history exists COVID-19 vaccine series (5 - 03/16/2022 11/14/2021, 021, Booster for Moderna series) 10/12/2020, Addition al history exists Influenza for age 65+ 04/10/2022 06/12/2021, 06/08/2019, 08/12/2018, Additional history exists Lipids for age 45-75 08/14/2022 08/14/2017, 06/24/2012, 07/22/2011 BMI (ht and wt on same day) for 02/06/2023 02/06/2022, 03/11, age 18+ 03/11/2021, Additional history exists Colonoscopy through age 75 09/30/2023 09/30/2018, 9, 07/21/2013 Tetanus booster 03/18/2028 03/18/2018, 09/13/2008 Pneumococcal series for age 65+ Completed 10/27/2017, 09/2016, 06/30/1997 Tdap Completed 03/18/2018, 09/13/2008 Hepatitis C screening for age Completed 08/12/2018 18-79 Zoster (shingles) series for age Completed 10/31/2021, 02/2022 50+ Procedures Procedure Name Priority Date/Time Associated Diagnosis Comme nts CBC WITH AUTO Routine 02/25/2022 10:18 Iron deficiency Results for this DIFFERENTIAL AM CDT anemia, unspecified procedur e are in iron deficiency the results anemia type section. PSA TOTAL Routine 02/25/2022 10:18 Malignant neoplasm Resul ts for this (DIAGNOSTIC) AM CDT of prostate (HC) procedure a re in the results section. IRON PLUS IRON Routine 02/25/2022 10:18 Iron deficiency Result s for this BINDING CAP AM CDT anemia, unspecified procedur e are in iron deficiency the results anemia type section. FERRITIN Routine 02/25/2022 10:18 Iron deficiency Results for this AM CDT anemia, unspecified procedur e are in iron deficiency the results anemia type section. CBC WITH AUTO Routine 02/25/2022 10:18 Iron deficiency Results for this DIFFERENTIAL AM CDT anemia, unspecified procedur e are in iron deficiency the results anemia type section. SCAN-DIAGNOSTIC 02/13/2022 12:00 Results for this REPORT AM CDT procedure are i n the results section. from Last 3 Months Results (ABNORMAL) CBC WITH AUTO DIFFERENTIAL (02/25/2022 10:18 AM CDT) [facility] Method Time Signature WHITE BLOOD 7.5 4.5 - 02/25/2022 [facility] COUNT 11.0 10:20 AM CDT [facility]/ CLINIC mm RED BLOOD COUNT 3.62 (L) 4.30 - 02/25/2022 [facility] 5.90 10:20 AM CDT [facility] CLINIC HEMOGLOBIN 10.6 (L) 13.5 - 02/25/2022 [facility] 17.5 g/dL 10:20 AM CDT [facility] HEMATOCRIT 31.7 (L) 37.0 - 02/25/2022 [facility] 53.0 % 10:20 AM CDT [facility] MCV 88 80 - 100 02/25/2022 [facility] fL 10:20 AM CDT [facility] MCH 29.3 26.0 - 02/25/2022 [facility] 34.0 pg 10:20 AM CDT [facility] MCHC 33.4 32.0 - 02/25/2022 [facility] 36.0 g/dL 10:20 AM CDT [facility] RDW 12.8 11.5 - 02/25/2022 [facility] 15.5 % 10:20 AM CDT [facility] PLATELET COUNT 189 140 - 440 02/25/2022 [facility] thou/cu 10:20 AM CDT [facility] CLINIC MPV 8.6 6.5 - 02/25/2022 [facility] 11.0 fL 10:20 AM CDT [facility] NEUTROPHILS 60.5 % 02/25/2022 [facility] 10:20 AM CDT [facility] LYMPHOCYTES 21.6 % 02/25/2022 [facility] 10:20 AM CDT [facility] MONOCYTES 10.1 % 02/25/2022 [facility] 10:20 AM CDT [facility] EOSINOPHILS 7.4 % 02/25/2022 [facility] 10:20 AM CDT [facility] BASOPHILS 0.4 % 02/25/2022 [facility] 10:20 AM CDT [facility] ABSOLUTE 4.5 1.7 - 7.0 02/25/2022 [facility] NEUTROPHILS thou/cu 10:20 AM CDT [facility] CLINIC ABSOLUTE 1.6 0.9 - 2.9 02/25/2022 [facility] LYMPHOCYTES thou/cu 10:20 AM CDT [facility] CLINIC ABSOLUTE 0.8 <0.9 02/25/2022 [facility] MONOCYTES thou/cu 10:20 AM CDT [facility] CLINIC ABSOLUTE 0.6 (H) <0.5 02/25/2022 [facility] EOSINOPHILS thou/cu 10:20 AM CDT [facility] CLINIC ABSOLUTE 0.0 <0.3 02/25/2022 [facility] BASOPHILS thou/cu 10:20 AM CDT [facility] CLINIC Specimen Anatomical Collection Method / Collection Time Recei shyla Time (Source) Location / Volume Laterality Blood BLOOD SPECIMEN / Venipuncture / 02/25/2022 10:18 02/25 Unknown Unknown AM CDT 10:18 AM CDT Yelena Sewell NP HEMATOLOGY Performing Organization Address City/[facility]/ZIP Code Phon e Number [facility] [id number] [place], [place] [address] CLINIC IRON PLUS IRON BINDING CAP (02/25/2022 10:18 AM CDT) athologist Signature IRON 68 31 - 144 02/25/2022 [facility] [employer] ug/dL 11:33 PM CDT LABORATORY-[facility]ENT [facility] LABORATORY UIBC 228 02/25/2022 [facility] (UNSATURATED) 11:33 PM CDT LABORATORY-CE NT RAL LABORATORY IRON BINDING 296 245 - 400 02/25/2022 [facility] [employer] CAPACITY ug/dL 11:33 PM CDT LABORATORY-[facility] LABORAT[facility] IRON,% 23 20 - 55 % 02/25/2022 [facility] SATURATION 11:33 PM CDT LABORATORY-[facility] LABORATORY Specimen Anatomical Collection Method / Collection Time Recei shyla Time (Source) Location / Volume Laterality Blood BLOOD SPECIMEN / Venipuncture / 02/25/2022 10:18 02/25 Unknown Unknown AM CDT 10:18 AM CDT Yelena Sewell NP CHEMISTRY Performing Organization Address City/State/ZIP Code Phon e Number [employer] [address] [place] [id number] LABORATORY-CENTRAL 2000 LABORATORY PSA TOTAL (DIAGNOSTIC) (02/25/2022 10:18 AM CDT) athologist Signature PSA TOTAL 0.08 <4.00 02/25/2022 [facility] (DIAGNOSTIC) ng/mL 11:42 PM CDT LABORATORY-LIZA T RAL LABORATORY Specimen Anatomical Collection Method / Collection Time Recei shyla Time (Source) Location / Volume Laterality Blood BLOOD SPECIMEN / Venipuncture / 02/25/2022 10:18 02/25 Unknown Unknown AM CDT 10:18 AM CDT Narrative [facility] LABORATORY-CENTRAL LABORAT ORY - 02/25/2022 11:42 PM CDT The percentage of Free PSA can be used to enhance the differentiation of prostate cancer from benign prostatic disease in subjects whose PSA levels are between 4.00 and 10.00 ng/mL. The % Free PSA will be reported only for PSA values between 4.00 and 10.00 ng/mL. The [facility] Neuro Ophthalmologist PSA assay is a Chem iluminescent Microparticle Immunoassay(CMIA). Assay values obtained with different assay methods cannot be used interchangeably due to differences in assay method s and reagent specificity. ? Anatoliy Jackson MD CHEMISTRY Performing Organization Address City/State/[facility] Phon e Number [facility] [address] [facility] [place] [address] LABORATORY-CENTRAL 2000 LABORATORY FERRITIN (02/25/2022 10:18 AM CDT) athologist Signature FERRITIN 175.1 22.0 - 02/25/2022 [facility] 275.0 ng/mL 11:42 PM CDT LABORATORY-CENT R AL LABORATORY Specimen Anatomical Collection Method / Collection Time Recei shyla Time (Source) Location / Volume Laterality Blood BLOOD SPECIMEN / Venipuncture / 02/25/2022 10:18 02/25 Unknown Unknown AM CDT 10:18 AM CDT Yelena Sewell NP CHEMISTRY Performing Organization Address City/[facility] Phon e Number [facility] [address] [place] [address] [place] [address] LABORATORY-CENTRAL 1999 LABORATORY SCAN-DIAGNOSTIC REPORT (02/13/2022 12:00 AM CDT) Narrative This result has an attachment that is no t available. Scanner OTHER from Last 3 Months Insurance Payer Benefit Plan / Subscriber ID Effective Dates Phone Addre ss Type Group MEDICARE PART A MEDICARE PART A [id number] 2014-Presen ATTN: CLAIMS - HB USE ONLY HB ONLY t [address] [place] [address] MEDICARE PART B MEDICARE PART B [id number] 2014-Presen ATTN: CLAIMS - HB USE ONLY HB ONLY t [address] [place] [address] MEDICARE - PB MEDICARE PB [id number] 2018-Presen ATTN : CLAIMS USE ONLY ONLY t [address] [place] [address] BLUE CROSS BLUE CROSS OF [id number] 2018-Presen [address] [place] [phone] Advance Directives Documents on File Type Date Recorded 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 Explanati on Healthcare Directive 12/13/2014 6:37 PM 12/03/2014 Latest Code Status on File Code Status Date Activated Date Inactivated Comments Full Code 04/23/2016 5:24 PM 04/25/2016 2:40 PM Full Code 04/22/2016 10:18 PM 04/23/2016 5:24 PM Care Teams Runner Man Relationship Specialty Start Date End Date Anatoliy Jackson MD PCP - General Family Practice 04/28/12 [address] [place] [address] Peter Gipson MD Urology Surgery - Urology 08/12/18 [address] [facility] [address] [place] [address] Alvaro Norwood MD Ophthalmology Surgery - Ophthalmology 02/27/[address] [place] [address] Francisco Felder MD Endocrinology Endocrinology 03/11/21 [address] [place] [address]
--- OUTSIDE RECORDS SUMMARY | 2022-05-02 12:21 | XMS_ITS | Encounter Summary ---
:1950 Author Organization [place] Address [address] [place] 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 [place] [place] [address] [facility] [address] [place] [phone] (Work) [phone] Social History Tobacco Use Types Packs/Day Years Used Date Former Smoker Cigarettes 2 Quit: 04/19/19 71 Smokeless Tobacco: Never Used Alcohol Use Standard Drinks/Week Comments Yes 0 (1 standard drink = 0.6 oz pure alcoho l) 4-5 drinks week Alcohol Habits Answer Date Recorded How often do you have a drink containing alcohol? Not asked How many drinks containing alcohol do you have on a Not aske d typical day when you are drinking? How often do you have six or more drinks on one Not asked occasion? Comment: 4-5 drinks week 07/17/2021 Sex Assigned at Date Recorded Male 03/12/2021 12:11 PM CDT documented as of this encounter Plan of Treatment Upcoming Encounters Date Type Specialty Care Team Description 05/15/2022 Hospital Encounter Surgery Singh Torres MD [facility] [address] [place] [address] (Wo rk) 05/15/2022 Surgery Surgery Neo Torres MD BLEPHAROPLASTY BILATERAL [facility] PTOSIS REPAIR BILATERAL [address] [place] [address] (Wo rk) 06/25/2022 Ancillary Procedure Cardiology Kirk Silver MD [address] [place] [address] (Wo rk) Scheduled Procedures Name Priority Associated Diagnoses Date/Time REPAIR, PTOSIS, BILATERAL, Dermatochalas is 05/15/2022 7:30 AM CDT WITH BILATERAL BLEPHAROPLASTY 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 documented in this encounter Results INTERROGATION DEVICE EVAL REMOTE PACER UP TO 90 DAYS (03/19/2022 8:05 AM CDT) Component Value Ref Test Analysis Performed Skilljar t Range Method Time At Signature Date Time [employer] Interrogation Session Implantable [employer] [place] [employer] Pulse Generator Master Police Detective Implantable L331 ACCOLADE MRI [employer] Pulse Generator EL Model Implantable [id number] [employer] Pulse Generator Serial Number Type Remote [employer] Interrogation Session Clinic Name [facility] [employer] Implantable Pacemaker MEDTRONIC Pulse Generator Type Implantable [id number] MED[employer] Pulse Generator Implant Date Implantable Lead [employer] [place] [employer] Master Police Detective Implantable Lead 7840 Ingevity + MEDTRON IC Model MRI Implantable Lead [id number] [employer] Serial Number Implantable Lead [id number] MEDTRONIC Implant Date Implantable Lead Bipolar Lead [employer] Polarity Type Implantable Lead UNKNOWN [employer] Location Detail 1 Implantable Lead Right Atrium [employer] Location Implantable Lead [employer] [place] [employer] Master Police Detective Implantable Lead 7841 Ingevity + MEDTRON IC Model MRI Implantable Lead [id number] [employer] Serial Number Implantable Lead [id number] MEDTRONIC Implant Date Implantable Lead Bipolar Lead [employer] Polarity Type Implantable Lead UNKNOWN [employer] Location Detail 1 Implantable Lead Right Ventricle MEDTRON IC Location Kali Setting DDDR [employer] Mode (NBG Code) Kali Setting 60 {beats}/ [employer] Lower Rate Limit min Kali Setting 130 {beats}/ [employer]TR[employer] Maximum Tracking min Rate Kali Setting 130 {beats}/ [employer] Maximum Sensor min Rate Kali Setting 200 ms [employer] SYLVAIN Delay Low Kali Setting 200 ms MEDTRONIC PAV Delay Low Kali Setting 150 ms MEDTRONIC PAV Delay High Kali Setting 150 ms [employer]TRONIC SYLVAIN Delay High Kali Setting AT 170 {beats}/ MED[employer] Mode Switch Rate min Kali Setting AT DDIR [employer]IC Mode Switch Mode Lead Channel Bipolar [employer]IC Setting Sensing Polarity Lead Channel 0.25 mV MEDTRONIC Setting Sensing Sensitivity Lead Channel Adaptive MEDTRONIC Setting Sensing Adaptation Mode Lead Channel Bipolar MEDTRONIC Setting Sensing Polarity Lead Channel 0.6 mV MEDTRONIC Setting Sensing Sensitivity Lead Channel Adaptive MEDTRONIC Setting Sensing Adaptation Mode Lead Channel Bipolar [employer]IC Setting Pacing Polarity Lead Channel 0.4 ms [employer]ONIC Setting Pacing Pulse Width Lead Channel 2.0 V [employer]IC Setting Pacing Amplitude Lead Channel Adaptive MEDTRONIC Setting Pacing Capture Mode Lead Channel Bipolar [employer]ONIC Setting Pacing Polarity Lead Channel 0.4 ms [employer]TR[employer]IC Setting Pacing Pulse Width Lead Channel 1.5 V [employer] Setting Pacing Amplitude Lead Channel Adaptive MEDTRONIC Setting Pacing Capture Mode Zone Setting VT MEDTRONIC Type Category Zone Setting VT MEDTR[employer]IC Vendor Type Category Zone Setting 375 ms [employer]IC Detection Interval Lead Channel 558 ohm [employer] Impedance Value Lead Channel 0.5 V [employer] Pacing Threshold Amplitude Lead Channel 0.4 ms [employer]TRONIC Pacing Threshold Pulse Width Lead Channel 730 ohm [employer]IC Impedance Value Lead Channel 1.1 V [employer]TR[employer]IC Pacing Threshold Amplitude Lead Channel 0.4 ms [employer]IC Pacing Threshold Pulse Width Battery Date [employer]ONIC Time of Measurements Battery Status Beginning of MEDTRON[employer] Service Battery 156 mo [employer]IC Remaining Longevity Battery 100 % [employer] Remaining Percentage Kali Statistic [id number] MEDTRONIC Date Time Start Kali Statistic MEDTRONIC Date Time End Kali Statistic 82 % MEDTRONIC RA Percent Paced Kali Statistic 1 % [employer] RV Percent Paced Atrial Tachy [id number] [employer]TRONIC Statistic Date Time Start Atrial Tachy [id number] [employer]TRONIC Statistic Date Time End Atrial Tachy 0 % MEDTRONIC Statistic AT/AF [place] Percent Episode 0 [employer]TRONIC Statistic Recent Count Episode AT/AF [employer]TR[employer]IC Statistic Type Category Episode AF MEDTRONIC Statistic Vendor Type Category Episode 0 [employer]TRONIC Statistic Recent Count Episode Other MEDTRONIC Statistic Type Category Episode 0 [employer]TRONIC Statistic Recent Count Episode SVT MEDTRONIC Statistic Type Category Episode SVT MEDTRONIC Statistic Vendor Type Category Episode 0 MEDTRONIC Statistic Recent Count Episode VT MEDTRONIC Statistic Type Category Episode NSVT MEDTRONIC Statistic Vendor Type Category Episode 0 MEDTRONIC Statistic Recent Count Episode VT MEDTRONIC Statistic Type Category Episode [place] MEDTRONIC Statistic Vendor Type Category Episode [id number] [employer]TRONIC Statistic Recent Date Time Start Episode [id number] [employer]TR[employer]IC Statistic Recent Date Time End Episode [id number] [employer]TR[employer]IC Statistic Recent Date Time Start Episode [id number] [employer]TR[employer]IC Statistic Recent Date Time End Episode [id number] [employer] Statistic Recent Date Time Start Episode [id number] [employer] Statistic Recent Date Time End Episode [id number] [employer] Statistic Recent Date Time Start Episode [id number] [employer]TR[employer]IC Statistic Recent Date Time End Episode [id number] [employer]TRONIC Statistic Recent Date Time Start Episode [id number] MEDTRONIC Statistic Recent Date Time End Episode APM-6 [employer]IC Identifier Episode Type Periodic EGM [employer]IC Category Episode Date [id number] MEDTRONIC Time Episode RAAT-178 [employer] Identifier Episode Type Other [employer]IC Category Episode Date [id number] [employer]IC Time Episode RVAT-180 [employer] Identifier Episode Type Other [employer]IC Category Episode Date [id number] [employer] Time Anatomical Region Laterality Modality Other Specimen (Source) Anatomical Collection Method Collection Time Re ceived Time Location / / Volume Laterality 03/19/2022 12:38 AM CDT Narrative 03/26/2022 10:59 AM CDT [employer] [place] [employer] Accolade (D) Remote PPM Device Check AP: 82% HELP DESK SPECIALIST: 1% Mode: DDDR 60/130 Presenting Rhythm: AP/VS Heart Rate: adequate rates per histogram s Sensing: stable Pacing Threshold: stable Impedance: stable Battery Status: 13 years remaining Atrial Arrhythmia: none Ventricular Arrhythmia: none Care Plan: Remote latitude PPM f/u q [address] [facility]. OV w/ Dr. Solis due 10/2022. LM with results and next appointment. ARISTIDES MatsonT I have reviewed and interpreted the jamaal ce interrogation, settings, programming and nurse's summary. The dev ice is functioning within normal device parameters. I agree with the curr ent findings, assessment and plan. 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 documented in this encounter Care Teams Circuit Clerk Relationship Specialty Start Date End Date Anatoliy Jackson, PCP - General 05/14/12 Heath More PCP - Internal Medicine INTERNAL MEDICINE - 01/06/14 MD Andreas ENDOCRINOLOGY, [facility] [address] [place] [address] [address] [place] [address] Peter Gipson PCP - Urology 04/02/15 MD Jordan [facility] [address] [place] [address] [address] [place], [place] [id number] Peter Mcmullen Assigned Musculoskeletal 06/01/20 MD Mahendra Provider [address] [place] [address] Giuliana Gomez Assigned Heart and 06/30/21 CALLIE Hernandez BRUSH STAINER Vascular Provider [address] [place] [address] Giuliana Gomez Nurse Practitioner Cardiovascular Disease 2 A, ESCORT CAR DRIVER BRUSH STAINER [address] [place] [address] Fidencio Solis MD MD Cardiovascular Disease 08/21/[address], [facility] [address] [place] [id number] documented as of this encounter
--- OUTSIDE RECORDS SUMMARY | 2022-05-02 12:21 | XMS_ITS | Encounter Summary ---
:1950 Author Organization [place] Address [address] [facility] [place] [address] Care Team Providers Name Role Phone Anatoliy Jackson MD Primary Care Provider Heath More MD Unavailable Peter Gipson MD Unavailable Peter Mcmullen MD Unavailable Giuliana Gomez APRN MEDICAL INTERPRETER Unavailable [phone] Giuliana Gomez APRN MEDICAL INTERPRETER Unavailable Fidencio Solis MD Unavailable Reason for Visit Reason Onset Date Comments Refill Request 03/28/2022 Lisinopril Encounter Details Date Type Department Care Team Description 03/28/2022 Refill [facility] Kimberly Gomez, Refill Request [facility] Heart OFFICE REP MEDICAL INTERPRETER (Lisinopril) [address] [place] [address] [place], [place] [phone] (Wo rk) [address] [phone] Social History Tobacco Use Types Packs/Day Years [...] PM CDT documented as of this encounter Miscellaneous Notes Telephone Encounter - Gilma Sewell RN - 03/28/2022 2:38 PM CDT [facility] Cardiology Refill Guideline reviewed. Medication meets criteria for refill. documented in this encounter Plan of Treatment Upcoming Encounters Date Type Specialty Care Team Description 05/15/2022 Hospital Encounter Surgery Singh Torres MD [facility] [address] [place] [address] (Wo rk) 05/15/2022 Surgery Surgery Neo Torres MD BLEPHAROPLASTY BILATERAL [facility] [facility] IDS, INTERNAL & [facility] [place] PTOSIS REPAIR BILATERAL [address] [place] [address] (Wo rk) 06/25/2022 Ancillary Procedure Cardiology Kirk Silver MD [address] [place] [address] (Wo rk) Scheduled Procedures Name Priority Associated Diagnoses Date/Time REPAIR, PTOSIS, BILATERAL, Dermatochalas is 05/15/2022 7:30 AM CDT WITH BILATERAL BLEPHAROPLASTY 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 REPAIR, ECTROPION, EYE, Dermatochalasis 05/15/2022 7:30 AM CDT BILATERAL 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 documented as of this encounter Visit Diagnoses Diagnosis S/P CABG (coronary artery bypass graft) 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 documented in this encounter Care Teams Telephone Engineer Relationship Specialty Start Date End Date Anatoliy Jackson, PCP - General 05/14/12 Heath More PCP - Internal Medicine INTERNAL MEDICINE - 01/06/14 MD Andreas ENDOCRINOLOGY, DIABETES [facility] [address] [place] [phone] Peter Gipson PCP - Urology 04/02/15 MD Jordan [facility] [address] [place] [address] Peter Mcmullen Assigned Musculoskeletal 06/01/20 MD Mahendra Provider [facility] [address] [facility] [address] [place], [place] [address] Giuliana Gomez Assigned Heart and 06/30/21 A, OFFICE REP MEDICAL INTERPRETER Vascular Provider [address] [place] [address] Giuliana Gomez Nurse Practitioner Cardiovascular Disease 2 A, OFFICE REP MEDICAL INTERPRETER [address] [place] [address] Fidencio Solis MD MD Cardiovascular Disease 08/21/[address], [place] [address] [place] [address] documented as of this encounter
--- OUTSIDE RECORDS SUMMARY | 2022-05-02 12:21 | XMS_ITS | Encounter Summary ---
:1950 Author Organization [place] Address [address] [place] [address] Care Team Providers Name Role Phone Anatoliy Jackson MD Primary Care Provider Heath More MD Unavailable Peter Gipson MD Unavailable Peter Mcmullen MD Unavailable Giuliana Gomez APRN TELEVISION MAINTENANCE MAN Unavailable [phone] Giuliana Gomez APRN TELEVISION MAINTENANCE MAN Unavailable [phone] Fidencio Solis MD Unavailable Encounter Details Date Type Department Care Team Description 12/18/2021 Travel Social History Tobacco Use Types Packs/Day Years [...] Date Recorded Male 03/12/2021 12:11 PM CDT COVID-19 Exposure Response Date Recorded In the last 10 days, have you been in contact with No / Unsu re 12/18/2021 8:17 AM CDT someone who was confirmed or suspected to have Coronavirus/COVID-19? documented as of this encounter Plan of Treatment Upcoming Encounters Date Type Specialty Care Team Description 05/15/2022 Hospital Encounter Surgery Singh Torres MD [facility] [address] [place] [address] (Wo rk) 05/15/2022 Surgery Surgery Neo Torres MD BLEPHAROPLASTY BILATERAL [facility], INTERNAL & SURGEONS [place] PTOSIS REPAIR BILATERAL [address] [place] [phone] (Wo rk) 06/25/2022 Ancillary Procedure Cardiology Kirk Silver MD [address] [place] [address] (Wo rk) Scheduled Procedures Name Priority Associated Diagnoses Date/Time REPAIR, PTOSIS, BILATERAL, Dermatochalas is 05/15/2022 7:30 AM CDT WITH BILATERAL BLEPHAROPLASTY 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 REPAIR, ECTROPION, EYE, Dermatochalasis 05/15/2022 7:30 AM CDT BILATERAL 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 documented as of this encounter Visit Diagnoses Not on filedocumented in this encounter Care Teams Roll Weigher Relationship Specialty Start Date End Date Anatoliy Jackson PCP - General 05/14/12 Heath More PCP - Internal Medicine INTERNAL MEDICINE - 01/06/14 MD Andreas ENDOCRINOLOGY, DIABETES [facility] [address] [place] [phone] Peter Gipson PCP - Urology 04/02/15 MD Jordan [facility] UROLOGY [address] [place] [address] Peter Mcmullen Assigned Musculoskeletal 06/01/20 MD Mahendra Provider [address] [place] [address] Giuliana Gomez Assigned Heart and 06/30/21 A, NEUROLOGY NURSE TELEVISION MAINTENANCE MAN Vascular Provider [address] [place] [address] Giuliana Gomez Nurse Practitioner Cardiovascular Disease 2 A, NEUROLOGY NURSE TELEVISION MAINTENANCE MAN [address] [place] [address] Fidencio Solis MD MD Cardiovascular Disease 08/21/[address], [place] [address] [place] [id number] documented as of this encounter
--- OUTSIDE RECORDS SUMMARY | 2022-05-02 12:21 | XMS_ITS | Clinical Summary ---
:1950 Author Organization [facility] Address [address] [facility] [place] [address] Care Team Providers Name Role Phone Anatoliy Jackson MD Primary Care Provider Heath More MD Unavailable Peter Gipson MD Unavailable Peter Mcmullen MD Unavailable Giuliana Gomez APRN SCHEDULING CLERK Unavailable [phone] Giuliana Gomez APRN SCHEDULING CLERK Unavailable [phone] Fidencio Solis MD Unavailable Allergies Active Allergy Reactions Severity Noted Date Comments Atorvastatin Other (See Comments) 02/23/2015 Congest ion Epinephrine Palpitations Low 07/13/2013 Medications Medication Sig Dispensed Refills Start Date End Date Status SYRINGE B-D MICRO FINE as directed 100 0 09/18/2004 Active 1/2 CC SYRINGES ONE TOUCH ULTRA TEST as directed 100 0 06/22/2006 Active STRPIndications: Type II or unspecified type diabetes mellitus without mention of complication, not stated as uncontrolled Turmeric 500 MG CAPS Take 1 capsule by 0 Active mouth every morning sertraline (ZOLOFT) 50 Take 50 mg by 0 Active MG tablet mouth daily Sleep doctor recommends taking at bedtime cyanocobalamin Take 1,000 mcg by 0 Active (VITAMIN B-12) 1000 mouth daily MCG tablet Continuous Blood Gluc 0 Active Sensor (DEXCOM G6 SENSOR) MISC melatonin 3 MG CAPS Take 10 mg by 0 Active mouth At Bedtime Polyethylene Glycol Place 1 drop into 0 Active 400 (BLINK TEARS OP) both eyes daily as needed HEMP OIL OR EXTRACT OR Apply 1 0 Active OTHER CBD CANNABINOID, Application NOT MEDICAL CANNABIS, topically 2 times daily as needed (Arthritis on right knee and wrist) Topical cream acetaminophen Take 2 tablets 40 tablet 0 04/25/2021 Active (TYLENOL) 325 MG (650 mg) by mouth tabletIndications: S/P every 4 hours as CABG (coronary artery needed for mild bypass graft) pain glucagon 1 MG kit 1 mg once as 0 Active needed for low blood sugar gabapentin (NEURONTIN) Take 1 capsule 0 05/01/2021 Active 300 MG (300 mg) by mouth capsuleIndications: 2 times daily S/P CABG (coronary artery bypass graft) Additional Information Patient taking differently: 300 mg Oral, (No frequency reported), 2029 and 0, Informant: Self, Reported on 10/14/2021 aspirin (ASA) 325 MG tablet Take 325 mg by mouth 0 Active daily Copper Gluconate (COPPER Take by mouth daily 0 Active CAPS) 2 MG CAPS Ferrous Sulfate 324 (65 Fe) Take by mouth every 0 Active MG TBEC morning Rx out, now getting it OTC hydrALAZINE (APRESOLINE) 50 Take 1 tablet (50 mg) by 270 tablet 3 10/10/2021 Active MG tabletIndications: mouth 3 times daily Take Essential hypertension 1 tablet 25mg three times daily in addition 1 tablet 50mg three times daily, for a total of 75mg three times daily hydrALAZINE (APRESOLINE) 25 Take 1 tablet (25 mg) by 270 tablet 3 10/10/2021 Active MG tabletIndications: mouth 3 times daily Take Essential hypertension 1 tablet 25mg three times daily in addition 1 tablet 50mg three times daily, for a total of 75mg three times daily acetaminophen (TYLENOL) 325 Take 650 mg by mouth At 0 Active MG tablet Bedtime hydrALAZINE (APRESOLINE) 25 Take 25 mg by mouth daily 0 Active MG tablet At 2030 if SBP >170. Was previously taking as needed but has recently been taking scheduled. INSULIN PUMP - OUTPATIENT BASAL RATES and times: 0 Active 0000 - 0500 : 1.1 units/hour, 0500 - 0000: 1.4 units/hour CARB RATIO and times: 0000 - 0500: 1:4 0500 - 1200: 1:3 1200 - 1630: 1:5 1630 - 2130: 1:3 2130 - 0000: 1:5 Corection Factor (Sensitivity) and times: 0000 - 0500: 1 unit: 35 mg/dL 0500 - 2130: 1 unit: 25 mg/dL 2130 - 0000: 1 unit: 35 mg/dL BLOOD GLUCOSE TARGET: 110 mg/dL clotrimazole (LOTRIMIN) 1 % Instill 5 drops into left 0 Active external solution ear two times daily, lay with ear up for at least 10 minutes after use. Use a cotton ball with vaseline when showering to keep dry. insulin lispro (HUMALOG) by Device route See Admin 0 Active 100 UNIT/ML injection Instructions carvedilol (COREG) 12.5 MG Take 1 tablet (12.5 mg) 60 tablet 3 10/16/2021 Active tabletIndications: by mouth 2 times daily Essential hypertension (with meals) and 2029 rosuvastatin (CRESTOR) 40 Take 1 tablet (40 mg) by 90 tablet 3 10/17/2021 Active MG tabletIndications: mouth every evening Coronary artery disease involving kashia coronary artery of kashia heart without angina pectoris, Hyperlipidemia LDL goal <70, S/P coronary artery stent placement isosorbide mononitrate Take 1 tablet (60 mg) by 90 tablet 1 Active (IMDUR) 60 MG 24 hr mouth daily 1630 tabletIndications: Essential hypertension amLODIPine (NORVASC) 10 MG Take 1 tablet (10 mg) by 90 tablet 1 12/09/2021 Active tabletIndications: mouth At Bedtime Essential hypertension, S/P CABG (coronary artery bypass graft) lisinopril (ZESTRIL) 10 MG Take 1 tablet (10 mg) by 90 tablet 1 03/28/2022 Active tabletIndications: S/P CABG mouth daily At bedtime (coronary artery bypass graft) Active Problems Problem Noted Date Bradycardia 10/14/2021 S/P CABG (coronary artery bypass graft) 04/29/2021 Fluid overload 04/29/2021 Transient hyperglycemia post procedure 04/29/2021 Weakness of both legs 04/28/2021 Near syncope 04/28/2021 Anemia, unspecified type 04/28/2021 Weakness 04/28/2021 CAD (coronary artery disease) 04/19/2021 Status post coronary angiogram 03/13/2021 Abnormal stress test 02/26/2021 Overview: Added automatically from request for nakita page [id number] Dyspnea on exertion 12/14/2020 Chronic renal insufficiency, stage 3 (moderate) 2017 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 The left at rest 1.04 The left RY post exercise was 0.75 Lower Extremity Arterial US 08/2011: No s ignificant obstructive peripheral arterial disease seen bilaterally. RY at rest was normal (right 1.12, left 1.10). Problem list name updated by automated p rocess. Provider to review Essential hypertension 03/27/2004 Overview: Renal Artery US: 09/2013:Patent bilateral renal arteries Renal Artery US 08/2012: Right and Left < 60% stenosis Problem list name updated by automated p rocess. 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 Provider to review Hyperlipidemia LDL goal <70 11/16/2002 Overview: Problem list name updated by automated p rocess. Provider to review Coronary artery disease involving kashia coronary artery of kashia heart without angina pectoris Overview: 04/09/2015 - PCI and JAVIER to mLCx, PCI and JAVIER to OM2 and PCI and JAVIER to osital and pLCx 01/03/15 CATH hemodynamically significant lesions in the second obtuse marginal,distal circumflex before OM 3 and the OM 24, and right PDA. The distalright system is severely calcified and there is moderate circumflex calcification Moderate non-obstructive CAD per 07/22 a ngiogram Resolved Problems Problem Noted Date Resolved Date Advance Care Planning 10/22/2016 12/01/2018 Overview: Advance Care Planning 10/22/2016: Receipt of ACP document: Received: Health Care Directive which was witnessed or notarized on 12/03/2014. Document previously scanned on 08/07/2016. Validation form compl eted and sent to be scanned. Code Status needs to be updated to reflect choices in most recent ACP document. Confirmed/documented designated decision maker(s). Added by Hoa Clayton TICKET ATTENDANT Advance Care Planning Liaison Abnormal nuclear stress test 01/03/2015 04/17/2015 Pain in limb 04/01/2007 04/27/2007 Encounters Date Type Specialty Care Team Description 03/28/2022 Refill Cardiology Giuliana Gomez Refill Re rosa ACALLIE SCHEDULING CLERK (Lisinopril) 03/19/2022 Ancillary Procedure Cardiology Kirk Silver MD Juncti onal escape rhythm; Cardiac pacemak er in situ from Last 3 Months Immunizations Name Administration Dates Next Due Influenza (IIV3) PF 07/27/2002, 06/30/1997 Pneumococcal 23 valent 06/30/1997 TD (ADULT, 7+) 06/30/1997 Family History Medical History Relation Comments Hypertension Maternal Grandfather Diabetes Maternal Grandmother Hypertension Maternal Grandmother Hypertension Mother Relation Status Comments Brother Alive Father (Age 30) Maternal Grandfather Maternal Grandmother Mother Sister 1 Alive Sister 2 Alive half sister Son 1 Alive Son 2 Alive Social History Tobacco Use Types Packs/Day Years Used Date Former Smoker Cigarettes 2 Quit: 04/19/19 71 Smokeless Tobacco: Never Used Tobacco Cessation: Counseling [...] Date Recorded Male 03/12/2021 12:11 PM CDT Last Filed Vital Signs Vital Sign Reading Time Taken Comments Blood Pressure 126/52 10/29/2021 12:37 PM CDT Pulse 64 10/29/2021 12:37 PM CDT Temperature 36.6 ??C (97.8 ??F) 10/16/2021 12:00 PM APPLIANCE SERVICER Respiratory Rate 12 10/16/2021 12:00 PM APPLIANCE SERVICER Oxygen Saturation 98% 10/29/2021 12:37 PM CDT Inhaled Oxygen Concentration - - Weight 101.7 kg (224 lb 3.2 10/29/2021 12:37 PM 216# HO ME WT oz) CDT Height 180.3 cm (5' 11) 10/29/2021 12:37 PM CDT Body Mass Index 31.27 10/29/2021 12:37 PM CDT Plan of Treatment Upcoming Encounters Date Type Specialty Care Team Description 05/15/2022 Hospital Encounter Surgery Singh Torres MD [facility] [address] [place] [address] (Wo rk) 05/15/2022 Surgery Surgery Neo Torres MD BLEPHAROPLASTY BILATERAL [facility] PTOSIS REPAIR BILATERAL [address] [place] [address] (Wo rk) 06/25/2022 Ancillary Procedure Cardiology Kirk Silver MD [address] [place] [id number] (Wo rk) Scheduled Procedures Name Priority Associated Diagnoses Date/Time REPAIR, PTOSIS, BILATERAL, Dermatochalas is 05/15/2022 7:30 AM CDT WITH BILATERAL BLEPHAROPLASTY 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 REPAIR, ECTROPION, EYE, Dermatochalasis 05/15/2022 7:30 AM CDT BILATERAL 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 Health Maintenance Due Date Last Done Comments ANNUAL REVIEW OF HM ORDERS 1950 CT COLONOGRAPHY 1950 DIABETIC FOOT EXAM 1950 EYE EXAM 1950 FIT-DNA (Cologuard) 1950 FIT 1950 FLEX SIG 1950 HEPATITIS C SCREENING 11/06/1967 MICROALBUMIN 03/27/2005 03/27/2004 AORTIC ANEURYSM SCREENING 2014 (SYSTEM ASSIGNED) FALL RISK ASSESSMENT 2014 MEDICARE ANNUAL WELLNESS 2014 VISIT PHQ-2 (once per calendar 08/10/2021 10/23/2020, 12/30/2019, year) 10/06/2019 COVID-19 Vaccine (5 - 01/09/2022 11/14/2021, 06/12/2021, Booster for Moderna series) 10/12/2020, Addition al history exists INFLUENZA VACCINE (#1) 2022 06/12/2021, 06/12/2021, 04/26/2020, Additional history exists A1C 04/16/2022 10/14/2021, 10/14/2021, 04/29/2021, Additional history exists LIPID 06/06/2022 06/06/2021, 12/21/2020, 11/30/2017, Additional history exists HEMOGLOBIN 10/15/2022 10/15/2021, 10/14/2021, 07/03/2021, Additional history exists BMP 10/29/2022 10/29/2021, 10/16/2021, 10/15/2021, Additional history exists ADVANCE CARE PLANNING 10/09/2025 10/09/2020, 12/01/2018, 12/01/2018, Additional history exists DTAP/TDAP/TD IMMUNIZATION 03/18/2028 03/18/2018, 09/13/2008 , (4 - Td or Tdap) 06/30/1997 COLONOSCOPY 09/30/2028 09/30/2018, 08/10/2012 COLORECTAL CANCER SCREENING 09/30/2028 Pneumococcal Vaccine: 65+ Completed 10/27/2017, 09/11/2016 , Years 12/29/2014, Additional history exists URINALYSIS Completed 04/27/2021, 04/17/2021 ZOSTER IMMUNIZATION Completed 10/31/2021, 08/16/2021 IPV IMMUNIZATION Aged Out No longer eligi ble based on patient 's age to complete this topic MENINGITIS IMMUNIZATION Aged Out No longe r eligible based on patient 's age to complete this topic Medical Devices Implanted Type Area Consultant Technology Device Shelf Model / Identifier Expiration Serial / Date Lot Lead Ingevity+ Af Is1 7840 4cm - [id number] Leads MACON 01/03/2023 [id number] / Implanted: Qty: 1 on 10/15/2021 at [facility] [employer] [place] [id number] / [id number] Pcmkr Card Accolade Mri El Dr - [id number] Pacemaker BOSTON [id number] / Implanted: Qty: 1 on 10/15/2021 by Alvarado Syed MD at [facility] [employer] [place] [id number] / Procedures Procedure Name Priority Date/Time Associated Comments Diagnosis INTERROGATION DEVICE Routine 03/19/2022 8:05 AM Junctional esc ape Results for this EVAL REMOTE PACER UP CDT rhythm procedure are in TO 90 DAYS Cardiac pacemaker the result s in situ section. from Last 3 Months Results INTERROGATION DEVICE EVAL REMOTE PACER UP TO 90 DAYS (03/19/2022 8:05 AM CDT) Component Value Ref Test Analysis Performed Pathologis t Range Method Time At Signature Date Time MEDTRONIC Interrogation Session Implantable [employer] MEDTRONIC Pulse Generator Consultant Technology Implantable L331 ACCOLADE MRI MEDTRONIC Pulse Generator EL Model Implantable [id number] MEDTRONIC Pulse Generator Serial Number Type Remote MEDTRONIC Interrogation Session Clinic Name [facility] MEDTRONIC Implantable Pacemaker MEDTRONIC Pulse Generator Type Implantable [id number] MEDTRONIC Pulse Generator Implant Date Implantable Lead [employer] MEDTR ONIC Consultant Technology Implantable Lead 7840 Ingevity + MEDTRON IC Model MRI Implantable Lead [id number] MEDTRONIC Serial Number Implantable Lead [id number] MEDTRONIC Implant Date Implantable Lead Bipolar Lead MEDTRONIC Polarity Type Implantable Lead UNKNOWN MEDTRONIC Location Detail 1 Implantable Lead Right Atrium MEDTRONIC Location Implantable Lead [employer] MEDTR ONIC Consultant Technology Implantable Lead 7841 Ingevity + MEDTRON IC Model MRI Implantable Lead [id number] MEDTRONIC Serial Number Implantable Lead [id number] MEDTRONIC Implant Date Implantable Lead Bipolar Lead [...] 100 % MEDTRONIC Remaining Percentage Kali Statistic MEDTRONIC Date Time Start Kali Statistic MEDTRONIC Date Time End Kali Statistic 82 % MEDTRONIC RA Percent Paced Kali Statistic 1 % MEDTRONIC RV Percent Paced Atrial Tachy MEDTRONIC Statistic Date Time Start Atrial Tachy MEDTRONIC Statistic Date Time End Atrial Tachy 0 % MEDTRONIC Statistic AT/AF Aurora Percent Episode 0 MEDTRONIC Statistic Recent Count [...] [place] MEDTRONIC Statistic Vendor Type Category Episode [id number] MEDTRONIC Statistic Recent Date Time Start Episode MEDTRONIC Statistic Recent Date Time End Episode MEDTRONIC Statistic Recent Date Time Start Episode MEDTRONIC Statistic Recent Date Time End Episode [id number] MEDTRONIC Statistic Recent Date Time Start Episode MEDTRONIC Statistic Recent Date Time End Episode MEDTRONIC Statistic Recent Date Time Start Episode MEDTRONIC Statistic Recent Date Time End Episode MEDTRONIC Statistic Recent Date Time Start Episode MEDTRONIC Statistic Recent Date Time End Episode APM-6 MEDTRONIC Identifier Episode Type Periodic EGM MEDTRONIC Category Episode Date MEDTRONIC Time Episode RAAT-178 MEDTRONIC Identifier Episode Type Other MEDTRONIC Category Episode Date MEDTRONIC Time Episode RVAT-180 MEDTRONIC Identifier Episode Type Other MEDTRONIC Category Episode Date MEDTRONIC Time Anatomical Region Laterality Modality Other Specimen (Source) Anatomical Collection Method Collection Time Re ceived Time Location / / Volume Laterality 03/19/2022 12:38 AM CDT Narrative 03/26/2022 10:59 AM CDT [email or web address] Accolade (D) Remote PPM Device Check AP: 82% SHAKE SPLITTER: 1% Mode: DDDR 60/130 Presenting Rhythm: AP/VS Heart Rate: adequate rates per histogram s Sensing: stable Pacing Threshold: stable Impedance: stable Battery Status: 13 years remaining Atrial Arrhythmia: none Ventricular Arrhythmia: none Care Plan: Remote latitude PPM f/u q [address] [facility]. OV w/ Dr. Solis due 10/2022. LM with results and next appointment. INDY Matson I have reviewed and interpreted the jamaal ce interrogation, settings, programming and nurse's summary. The dev ice is functioning within normal device parameters. I agree with the curr ent findings, assessment and plan. Kirk Silver MD [facility] ORDERABL ES from Last 3 Months Insurance Payer Benefit Plan / Subscriber ID Effective Phone Address T ype Group Dates BC[place] [id number] 2018-Prese [phone] [address] [address] [address] [place] [address] MEDICARE MEDICARE [id number] 2018-Shalini [phone] ATTN THUY [place] Medicare nt 40 [address] [place] [address] Nikita Anderson Personal/Family Self 1950 [address]) [address] none (Work) Konstantin IRIZARRY [address] Advance Directives For more information, please contact: [phone] Documents on File Type Date Recorded Patient Delivery And Mail Sorter Explanati on Advance Directives 08/07/2016 11:22 AM [facility] re Directive and Living Will 12/03/2014 Latest Code Status on File Code Status Date Activated Date Inactivated Comments Full Code 10/14/2021 7:08 PM 10/16/2021 4:41 PM All basic and advanced life-sustaining interventions ar e performed as appropriate Code status determined by: Discussion with patient/ legal de cision maker Full Code 04/28/2021 10:13 PM 05/01/2021 7:39 PM All basic a nd advanced life-sustaining interventions ar e performed as appropriate Code status determined by: Discussion with patient/ legal de cision maker Full Code 04/19/2021 1:42 PM 04/25/2021 3:42 PM All basic an d advanced life-sustaining interventions ar e performed as appropriate Code status determined by: Unable to discuss and no AD/POLST on file; continue PREVIOUSLY ORDERED code status Healthcare Agents on File Name Relationship Healthcare Agent Relationship Co mmunication Michaela Anderson Spouse Health Care Agent Nadir Anderson Son [facility] Health Care Agent Care Teams Residential Mortgage Manager Relationship Specialty Start Date End Date Anatoliy Jackson, PCP - General 05/14/12 Hetah More PCP - Internal Medicine INTERNAL MEDICINE - 01/06/14 MD Andreas ENDOCRINOLOGY, [facility] [address] [facility] [address] [place] [phone] Peter Gipson PCP - Urology 04/02/15 MD Jordan [facility] [address] [place] [id number] Peter Mcmullen Assigned Musculoskeletal 06/01/20 MD Mahendra Provider [facility] [place], [place] [id number] [place], [place] [address] Giuliana Gomez Assigned Heart and 06/30/21 A, AERIAL LINEMAN SCHEDULING CLERK Vascular Provider [address] [place] [id number] Giuliana Gomez Nurse Practitioner Cardiovascular Disease 2 A, AERIAL LINEMAN SCHEDULING CLERK [address] [place] [id number] Fidencio Solis MD MD Cardiovascular Disease 08/21/[address], [facility] [address] [place] [id number]
--- OUTSIDE RECORDS SUMMARY | 2022-05-02 12:21 | XMS_ITS | Encounter Summary ---
:1950 Author Organization [facility] Address [address] 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 Kirk Silver MD Procedures Cardiac Device Check - Remote [address] [place] [address] Referral ID Status Reason Start Date Expiration Date Visits V isits Requested Authorized [id number] Pending 12/18/2021 12/18/2022 100 100 Review Reason for Visit CV Testing (Routine) - Pending Review Specialty Diagnoses / Procedures Referred By Contact Refer red To Contact Diagnoses 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 Junior Camarillo MD Procedures Cardiac Device Check - In Clinic (Standing ORD 2 count) [address] [place] [address] Referral ID Status Reason Start Date Expiration Date Visits V isits Requested Authorized [id number] Pending 10/16/2021 10/16/2022 2 2 Review Encounter Details Date Type Department Care Team Description 12/18/2021 Ancillary Procedure [facility] Junior Camarillo, Junctional escape rhythm; Heart Clinic Cardiac pacemaker in situ [place] [address] [address] [email or web address] [place] [address] [place] [phone] [address] (Work) [phone] Social History Tobacco Use Types Packs/Day Years [...] MD [facility] [address] [place] [address] (Wo rk) 05/15/2022 Surgery Surgery Neo Torres MD BLEPHAROPLASTY BILATERAL [facility] PTOSIS REPAIR BILATERAL [address] [place] [address] (Wo rk) 06/25/2022 Ancillary Procedure Cardiology Kirk Silver MD [address] [place] [address] (Wo rk) Scheduled Orders Name Type Priority Associated Order Schedule Diagnoses Cardiac Device Implantable Cardiac Routine Junctional escape 1 00 Occurrences Check - Remote Device rhythm starting 12/18/2021 Cardiac pacemaker until 12/08, 1 in situ completed Scheduled Procedures Name Priority Associated Diagnoses Date/Time REPAIR, PTOSIS, BILATERAL, Dermatochalas is 05/15/2022 7:30 AM CDT WITH BILATERAL BLEPHAROPLASTY 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 documented in this encounter Results INTERROGATION DEVICE EVAL REMOTE PACER UP TO 90 DAYS (03/19/2022 8:05 AM CDT) Component Value Ref Test Analysis Performed Pathologis t Range Method Time At Signature Date Time [employer] Interrogation Session Implantable [employer] Pulse Generator Cpo Implantable L331 ACCOLADE MRI MEDTRONIC Pulse Generator EL Model Implantable [id number] [employer] Pulse Generator Serial Number Type Remote [employer]TR[employer]IC Interrogation Session Clinic Name [facility] [employer] Implantable Pacemaker MEDTRONIC Pulse Generator Type Implantable [id number] MEDTRONIC Pulse Generator Implant Date Implantable Lead [employer] MEDTR ONIC Cpo Implantable Lead 7840 Ingevity + MEDTRON IC Model MRI Implantable Lead [id number] [employer] Serial Number Implantable Lead [id number] MEDTRONIC Implant Date Implantable Lead Bipolar Lead [employer]IC Polarity Type Implantable Lead UNKNOWN [employer] Location Detail 1 Implantable Lead Right Atrium [employer] Location Implantable Lead [employer] MEDTR ONIC Cpo Implantable Lead 7841 Ingevity + MEDTRON IC Model MRI Implantable Lead [id number] [employer] Serial Number Implantable Lead [id number] [employer]ONIC Implant Date Implantable Lead Bipolar Lead [...] MEDTRONIC Pacing Threshold Pulse Width Battery Date InVivioLinkTRONIC Time of Measurements Battery Status Beginning of [...] Atrial Tachy 0 % MEDTR[employer] Statistic AT/AF [place] Percent Episode 0 [employer]TR[employer] Statistic Recent Count [...] [place] [employer] Statistic Vendor Type Category Episode [id number] [employer]TRONIC Statistic Recent Date Time Start Episode [id number] [employer]TRONIC Statistic Recent Date Time End Episode [id number] MEDTRONIC Statistic Recent Date Time Start Episode [id number] MEDTRONIC Statistic Recent Date Time End Episode [id number] MEDTRONIC Statistic Recent Date Time Start Episode [id number] MEDTR[employer]IC Statistic Recent Date Time End Episode [id number] MEDTRONIC Statistic Recent Date Time Start Episode [id number] MEDTRONIC Statistic Recent Date Time End Episode [id number] [employer]TRONIC Statistic Recent Date Time Start Episode [id number] MEDTRONIC Statistic Recent Date Time End Episode [...] AM CDT Narrative 03/26/2022 10:59 AM CDT [employer] Accolade (D) Remote PPM Device Check AP: 82% SIDING COREBOARD INSPECTOR: 1% Mode: DDDR 60/130 Presenting Rhythm: AP/VS Heart Rate: adequate rates per histogram s Sensing: stable Pacing Threshold: stable Impedance: stable Battery Status: 13 years remaining Atrial Arrhythmia: none Ventricular Arrhythmia: none Care Plan: Remote latitude PPM f/u q 3 m ont. OV w/ Dr. Solis due 10/2022. LM with results and next appointment. INDY Matson I have reviewed and interpreted the jamaal ce interrogation, settings, programming and nurse's summary. The dev ice is functioning within normal device parameters. I agree with the curr ent findings, assessment and plan. Kirk Silver MD CV CARDIAC SERVICES ORDERABL ES PM DEVICE PROGRAMMING EVAL, DUAL LEAD PACER (12/18/2021 8:42 AM CDT) Component Value Ref Test Analysis Performed Pathologis t Range Method Time At Signature Date Time [id number] [employer] Interrogation Session Implantable [employer] Pulse Generator Cpo Implantable L331 ACCOLADE MRI MEDTRONIC Pulse Generator EL Model Implantable [id number] MEDTRONIC Pulse Generator Serial Number Type In Clinic [facility]TR[employer]IC Interrogation Session Clinic Name [facility] [employer]TR[employer]IC Implantable Pacemaker MEDTRONIC Pulse Generator Type Implantable [id number] MEDTRONIC Pulse Generator Implant Date Implantable Lead [employer] MEDTR ONIC Cpo Implantable Lead 7840 Ingevity + MEDTRON IC Model MRI Implantable Lead [id number] MEDTRONIC Serial Number Implantable Lead [id number] MEDTRONIC Implant Date Implantable Lead Bipolar Lead [employer]ONIC Polarity Type Implantable Lead UNKNOWN MEDTRONIC Location Detail 1 Implantable Lead Right Atrium [employer]TRON[employer] Location Implantable Lead [employer] MEDTR ONIC Cpo Implantable Lead 7841 Ingevity + MEDTRON IC Model MRI Implantable Lead [id number] [employer]ONIC Serial Number Implantable Lead [id number] MEDTRONIC Implant Date Implantable Lead Bipolar Lead [...] MEDTRONIC Setting Pacing Pulse Width Lead Channel 1.3 V MEDTRONIC Setting Pacing Amplitude Lead Channel Adaptive MEDTRONIC Setting Pacing Capture Mode Zone Setting VT MEDTRONIC Type Category Zone Setting VT MEDTRONIC Vendor Type Category Zone Setting 375 ms MEDTRONIC Detection Interval Lead Channel 608 ohm MEDTRONIC Impedance Value Lead Channel 0.8 V MEDTRONIC Pacing Threshold Amplitude Lead Channel 0.4 ms MEDTRONIC Pacing Threshold Pulse Width Lead Channel 699 ohm MEDTRONIC Impedance Value Lead Channel 0.7 V MEDTRONIC Pacing Threshold Amplitude Lead Channel 0.4 ms [employer]TR[employer]IC Pacing Threshold Pulse Width Battery Date [id number] [employer]IC Time of Measurements Battery Status Beginning of MEDTRONIC Service Battery 174 mo MEDTRONIC Remaining Longevity Battery 100 % MEDTRONIC Remaining Percentage Kali Statistic MEDTRONIC Date Time Start Kali Statistic [id number] MEDTRONIC Date Time End Kali Statistic 56 % MEDTRONIC RA Percent Paced Kali Statistic 0 % MEDTRONIC RV Percent Paced Atrial Tachy MEDTRONIC Statistic Date Time Start Atrial Tachy MEDTRONIC Statistic Date Time End Atrial Tachy 0 % MEDTRONIC Statistic AT/AF [place] Percent Episode 0 MEDTRONIC Statistic Recent Count [...] [place] MEDTRONIC Statistic Vendor Type Category Episode [id number] MEDTRONIC Statistic Recent Date Time Start Episode [id number] MEDTRONIC Statistic Recent Date Time End Episode [id number] MEDTRONIC Statistic Recent Date Time Start Episode [id number] MEDTRONIC Statistic Recent Date Time End Episode [id number] [employer]TRONIC Statistic Recent Date Time Start Episode [id number] MEDTRONIC Statistic Recent Date Time End Episode [id number] MEDTRONIC Statistic Recent Date Time Start Episode [id number] [employer]TRONIC Statistic Recent Date Time End Episode [id number] MEDTRONIC Statistic Recent Date Time Start Episode [id number] MEDTRONIC Statistic Recent Date Time End Anatomical Region Laterality Modality Other Specimen (Source) Anatomical Collection Method Collection Time Re ceived Time Location / / Volume Laterality 12/18/2021 8:24 AM CDT Narrative 12/25/2021 4:24 PM CDT [employer] Accolade (D) Pacemaker Device Check Patient seen in clinic for device evalua tion and iterative programming. AP: 56 ?% ?? SIDING COREBOARD INSPECTOR: <1 % ?? Mode: DDDR 60-130 ?? Underlying Rhythm: SB 51 bpm ?? Heart Rate: adequate variability, pt sta mauro he has not been very active over the winter, but is outdoors more th is spring and gets short of breath with activity ?? Sensing: WNL ?? Pacing Threshold: WNL ?? Impedance: WNL ?? Battery Status: 14.5. yrs estimated long evity ?? Device Site: WNL ?? Atrial Arrhythmia: 0 ?? Ventricular Arrhythmia: 0 ?? Setting Change: changed MV Rate Response Factor from 8 to 10 due to activity intolerance. ?? Care Plan: Scheduled remote in 3 months. ??OV with SERAFIN due 01/2022. Encouraged pt to alli in 2-3 weeks if he is still short of breath with activity and we can adjust rate response further. ?? EC RN I have reviewed and interpreted the jamaal ce interrogation, settings, programming and nurse's summary. The dev ice is functioning within normal device parameters. I agree with the curr ent findings, assessment and plan. 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 documented in this encounter Care Teams Head Trimmer Relationship Specialty Start Date End Date Anatoliy Jackson, PCP - General 05/14/12 Heath More PCP - Internal Medicine INTERNAL MEDICINE - 01/06/14 MD Andreas ENDOCRINOLOGY, [facility] METABOLISM [address] [place] [address] Peter Gipson PCP - Urology 04/02/15 MD Jordan [facility] [address] [place] [address] [address] [place], [place] [id number] Peter Mcmullen Assigned Musculoskeletal 06/01/20 MD Mahendra Provider [address] [place] [address] Giuliana Gomez Assigned Heart and 06/30/21 A, BI REPORT DEVELOPER WELT POCKET MACHINE OPERATOR Vascular Provider [address] [place] [address] Giuliana Gomez Nurse Practitioner Cardiovascular Disease 2 A, BI REPORT DEVELOPER WELT POCKET MACHINE OPERATOR [address] [place] [address] Fidencio Solis MD MD Cardiovascular Disease 08/21/[address] [place], [facility] [address] [place] [address] documented as of this encounter
--- OUTSIDE RECORDS SUMMARY | 2022-05-02 12:22 | XMS_ITS | Encounter Summary ---
:1950 Author Organization [facility] Address [address] [facility] [place] [address] Care Team Providers Name Role Phone Anatoliy Jackson MD Primary Care Provider Heath More MD Unavailable Peter Gipson MD Unavailable Peter Mcmullen MD Unavailable Giuliana Gomez APRN [employer]AND [employer]TER Unavailable [phone] Giuliana Gomez APRN [employer]TER Unavailable [phone] Fidencio Solis MD Unavailable Encounter Details Date Type Department Care Team Description 10/24/2021 Orders Only [facility], Ischemic cardi omyopathy (Primary Dx); [facility] LETICIA Garcia Dyspn ea on exertion [facility] [place] [address] Social History Tobacco Use Types Packs/Day Years [...] Exposure Response Date Recorded In the last month, have you been in contact with No / Unsure 10/14/2021 11:58 AM 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 documented as of this encounter Progress Notes Radha Bautista RN - 10/24/2021 11:19 AM CDT Lab orders placed for BMP and BNP prior to OV with Fadi Gomez CNP 10/29/21. Radha Bautista RN, BSN [place], [place] [facility] [employer] And Service Director October 24, 2021 11:20 AM documented in this encounter Plan of Treatment Upcoming Encounters Date Type Specialty Care Team Description 05/15/2022 Hospital Encounter Surgery Singh Torres MD [facility] [address] [place] [address] (Wo rk) 05/15/2022 Surgery Surgery Neo Torres MD BLEPHAROPLASTY BILATERAL [facility] PTOSIS REPAIR BILATERAL [address] [place] [address] (Wo rk) 06/25/2022 Ancillary Procedure Cardiology Kirk Sliver MD [address] [place] [id number] (Rosalva rk) Scheduled Procedures Name Priority Associated Diagnoses Date/Time REPAIR, PTOSIS, BILATERAL, Dermatochalas is 05/15/2022 7:30 AM CDT WITH BILATERAL BLEPHAROPLASTY 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 Establishing a baseline value for each individual patient is useful for follow-up. Suggested inpatient cut points for confi rming diagnosis of CHF in an acute setting are: >450 pg/mL (age 18 to less than 50) >900 pg/mL (age 50 to less than 75) >1800 pg/mL (75 yrs and older) An inpatient or emergency department NT- proPBNP <300 pg/mL effectively rules out acute CHF, with 99% negative predictive value. Specimen Anatomical Collection Method / Collection Time Recei shyla Time (Source) Location / Volume Laterality Blood STRUCTURE OF RIGHT Venipuncture / 10/29/2021 11:25 UPPER LIMB / Unknown AM CDT 11:25 AM CDT Unknown Giuliana Masonchen MARKSMANSHIP INSTRUCTOR [facility] - BLOOD ORDERABLES Performing Organization Address City/State/ZIP Code [place] [phone] Care Lab [address] Lab (1st floor, no room number) (ABNORMAL) Basic metabolic panel (10/29/2021 11:25 AM CDT) Patholo gist Method Time Signature Sodium 140 133 - 144 10/29/2021 [facility] mmol/L 12:24 PM CDT Potassium 4.8 3.4 - 5.3 10/29/2021 LABORATORY mmol/L 12:24 PM CDT Chloride 113 (H) 94 - 109 10/29/2021 LABORATORY mmol/L 12:24 PM CDT Carbon Dioxide 22 20 - 32 10/29/2021 LABORATORY (CO2) mmol/L 12:24 PM CDT Anion Gap 5 3 - 14 10/29/2021 LABORATORY mmol/L 12:24 PM CDT Urea Nitrogen 49 (H) 7 - 30 10/29/2021 LABORATORY mg/dL 12:24 PM CDT Creatinine 1.37 (H) 0.66 - 10/29/2021 LABORATORY 1.25 mg/dL 12:24 PM CDT Calcium 8.5 8.5 - 10.1 10/29/2021 LABORATORY mg/dL 12:24 PM CDT Glucose 127 (H) 70 - 99 10/29/2021 LABORATORY mg/dL 12:24 PM CDT GFR Estimate 55 (L) >60 10/29/2021 LABORATORY mL/min/1.7 12:24 PM CDT 3m2 Comment: Effective July 30, 2021 eGF Rcr in adults is calculated using the 2020 CKD-EPI creatinine equation which includ es age and gender ([employer] Engraver et al., NEJM, DOI: 10.1056/TAFIrp7633144) Specimen Anatomical Collection Method / Collection Time Recei shyla Time (Source) Location / Volume Laterality Blood STRUCTURE OF RIGHT Venipuncture / 10/29/2021 11:25 UPPER LIMB / Unknown AM CDT 11:25 AM CDT Unknown Giuliana Hernandez Mannchen MARKSMANSHIP INSTRUCTOR [facility] - BLOOD ORDERABLES Performing Organization Address City/State/ZIP Code [place] [address] Care Lab [address] Lab (1st floor, no room number) documented in this encounter Visit Diagnoses Diagnosis Ischemic cardiomyopathy - Primary Other specified forms of chronic ischemi c heart disease Dyspnea on exertion Other dyspnea and respiratory abnormalit y 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 [address] [place] [address] Peter Mcmullen Assigned Musculoskeletal 06/01/20 MD Mahendra Provider [address] [place], [place] [address] Giuliana Gomez Assigned Heart and 06/30/21 A, MARKSMANSHIP INSTRUCTOR RAND [employer]TER Vascular Provider [address] [place] [address] Giuliana Gomez Nurse Practitioner Cardiovascular Disease 2 A, MARKSMANSHIP INSTRUCTOR RAND [employer]TER [address] [place] [id number] Fidencio Solis MD MD Cardiovascular Disease 08/21/21 [address], [facility] [address] [place], [place] [address] documented as of this encounter
--- OUTSIDE RECORDS SUMMARY | 2022-05-02 12:22 | XMS_ITS | Encounter Summary ---
:1950 Author Organization [place] Address [address] 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 Cardiac pacemaker in situ [facility] [address] [facility] [address] [facility] [address] [place] [address] [place] [phone] Social History Tobacco Use Types Packs/Day Years [...] been in contact with No / Unsure 10/28/2021 11:12 AM CDT someone who was confirmed or 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 documented as of this encounter Plan of Treatment Upcoming Encounters Date Type Specialty Care Team Description 05/15/2022 Hospital Encounter Surgery Singh Torres MD [facility] [address] [place] [address] (Wo rk) 05/15/2022 Surgery Surgery Neo Torres MD BLEPHAROPLASTY BILATERAL [facility] PTOSIS REPAIR BILATERAL [address] [place] [id number] (Wo rk) 06/25/2022 Ancillary Procedure Cardiology Kirk Silver MD [address] [place] [id number] (Wo rk) Scheduled Procedures Name Priority Associated [...] Associated Comments Diagnosis PM DEVICE PROGRAMMING Routine 10/28/2021 11:53 Junctional esca pe Results for this EVAL, DUAL LEAD PACER AM CDT rhythm procedure are in Cardiac pacemaker the result s in situ section. documented in this encounter Results PM DEVICE PROGRAMMING EVAL, DUAL LEAD PACER (10/28/2021 11:53 AM CDT) Component Value Ref Test Analysis Performed PathMeMed t Range Method Time At Signature Date Time [employer] Interrogation Session Implantable [place] [employer] Pulse Generator Sox Analyst Implantable L331 ACCOLADE MRI [employer] Pulse Generator EL Model Implantable [id number] [employer] Pulse Generator Serial Number Type In Clinic [facility] Interrogation Session Clinic Name [facility] Implantable Pacemaker [employer]IC Pulse Generator Type Implantable [id number] [employer]IC Pulse Generator Implant Date Implantable Lead [place] [employer] Sox Analyst Implantable Lead 7840 Ingevity + MEDTRON IC Model MRI Implantable Lead [id number] [employer] Serial Number Implantable Lead [id number] [employer]IC Implant Date Implantable Lead Bipolar Lead [employer] Polarity Type Implantable Lead UNKNOWN [employer] Location Detail 1 Implantable Lead Right Atrium [employer]ONIC Location Implantable Lead [place] [employer] ON[employer] Sox Analyst Implantable Lead 7841 Ingevity + MEDTRON IC Model MRI Implantable Lead [id number] [employer] Serial Number Implantable Lead [id number] [employer]IC Implant Date Implantable Lead Bipolar Lead [...] MEDTRONIC Setting Pacing Pulse Width Lead Channel 1.0 V [employer] Setting Pacing Amplitude Lead Channel Adaptive [employer] Setting Pacing Capture Mode Zone Setting [place] MEDTRONIC Type Category Zone Setting VT [employer]IC Vendor Type Category Zone Setting 375 ms [employer]ONIC Detection Interval Lead Channel 580 ohm [employer] Impedance Value Lead Channel 0.7 V [employer] Pacing Threshold Amplitude Lead Channel 0.4 ms [employer]IC Pacing Threshold Pulse Width Lead Channel 627 ohm [employer]IC Impedance Value Lead Channel 0.5 V [employer] Pacing Threshold Amplitude Lead Channel 0.4 ms [employer]IC Pacing Threshold Pulse Width Battery Date [employer]IC Time of Measurements Battery Status Beginning of [employer] Service Battery 174 mo [employer] Remaining Longevity Battery 100 % [employer] Remaining Percentage Kali Statistic [id number] [employer]IC Date Time Start Kali Statistic [id number] [employer]IC Date Time End Kali Statistic 25 % MED[employer]IC RA Percent Paced Kali Statistic 0 % [employer] RV Percent Paced Atrial Tachy [id number] [employer]IC Statistic Date Time Start Atrial Tachy MEDTRONIC Statistic Date Time End Atrial Tachy 0 % MEDTRONIC Statistic AT/AF [place] Percent Episode 0 [employer]TR[employer] Statistic Recent Count [...] [place] MEDTR[employer]IC Statistic Vendor Type Category Episode [id number] [employer] Statistic Recent Date Time Start Episode [id number] [employer] Statistic Recent Date Time End Episode [id number] [employer] Statistic Recent Date Time Start Episode [id number] [employer] Statistic Recent Date Time End Episode [id number] [employer] Statistic Recent Date Time Start Episode [id number] [employer] Statistic Recent Date Time End Episode [id number] [employer] Statistic Recent Date Time Start Episode [id number] [employer] Statistic Recent Date Time End Episode [id number] [employer] Statistic Recent Date Time Start Episode [employer]IC Statistic Recent Date Time End Anatomical Region Laterality Modality Other Specimen (Source) Anatomical Collection Method Collection Time Re ceived Time Location / / Volume Laterality 10/28/2021 11:25 AM CDT Narrative 11/07/2021 9:27 AM CDT [place] [employer] vascular solution (D) 13 day Post Pacemaker Device Check Patient seen in clinic for device evalua tion and iterative programming. AP: 25% SUPERVISOR PLASMA: <1% Mode: DDDR 60-130 Underlying Rhythm: SBrady at 51-52bpm Heart Rate: Stable with good variability . ??HRs per histogram range from 60-120 and primarily from 60-100. ?? Sensing: WNL Pacing Threshold: Stable Impedance: Stable Battery Status: Estimated at 15 years re maining Incision: Steri-strips removed. ??Incisi on CDI with no redness, drainage, swelling, or signs of infection. Atrial Arrhythmia: 0 Ventricular Arrhythmia: 0 Setting Change: None Care Plan: ??Reviewed incision care and monitoring, activity restrictions, remote monitoring, normal clinic follow- up and when to call the clinic. ?? Reviewed effect using chainsaw/other dev ices causing vibration at PPM site can have along with magnet response. ??P atient also asked questions regarding putting lotion/oil over site t o help minimize scarring; explained that no lotions/creams/powders should be used over site until completely healed and to a solid scar li ne to help prevent infection. ??6 week device check previously scheduled i xin Henson on 12/18/21. ?? Scheduled to follow-up with Fadi lauren CNP on 10/29/21. ??Patient verbalized understanding of all instruct ions and will call clinic with any questions, device clinic card provided. ?? 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 Mill Operator Relationship Specialty Start Date End Date Anatoliy Jackson, PCP - General 05/14/12 Heath More PCP - Internal Medicine INTERNAL MEDICINE - 01/06/14 MD Andreas ENDOCRINOLOGY, DIABETES [facility] [address] [place] [phone] Peter Gipson PCP - Urology 04/02/15 MD Jordan [facility] [address] [facility] [address] [place] [address] Peter Mcmullen Assigned Musculoskeletal 06/01/20 MD Mahendra Provider [address] [facility] [address] [place] [address] Giuliana Gomez Assigned Heart and 06/30/21 A, TRAINING AND DEVELOPMENT HEAD TREE LOADER MEAT Vascular Provider [address] [place] [phone] Giuliana Gmoez Nurse Practitioner Cardiovascular Disease 2 A, TRAINING AND DEVELOPMENT HEAD TREE LOADER MEAT [address] [place] [address] Fidencio Solis MD MD Cardiovascular Disease 08/21/[address] [place] [phone] documented as of this encounter
--- OUTSIDE RECORDS SUMMARY | 2022-05-02 12:22 | XMS_ITS | Encounter Summary ---
:1950 Author Organization [place] Address [address] [facility] [place] [address] Care Team Providers Name Role Phone Anatoliy Jackson MD Primary Care Provider Heath More MD Unavailable Peter Gipson MD Unavailable Peter Mcmullen MD Unavailable Giuliana Gomez APRN POACHER WRINGER OPERATOR Unavailable [phone] Giuliana Gomez APRN POACHER WRINGER OPERATOR Unavailable Fidencio Solis MD Unavailable Reason for Visit Reason Onset Date Comments Referral 10/18/2021 mt Encounter Details Date Type Department Care Team Description 10/18/2021 Telephone [facility] Gregory Goldberg MD Referral ([facility]) Project [id number] Christ Hernandez [address] [place] [address] [place], [place] [address] [phone] Social History Tobacco Use Types Packs/Day Years [...] with No / Unsure 10/14/2021 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 documented as of this encounter Miscellaneous Notes Telephone Encounter - Louis Haynes - 10/18/2021 2:41 PM CST MTM referral from: Transitions of Care (recent hospital discharge or ED visit) MTM referral outreach attempt #2 on October 18, 2021 at 2:41 PM Outcome: Patient not reachable after several attempts, will route to [facility] Pharmacist/Provider as an FYI. [facility] scheduling number is [phone]. Thank you for the referral. Louis Haynes [facility] coordinator SALES AND STORAGE MANAGER documented in this encounter Plan of Treatment Upcoming Encounters Date Type Specialty Care Team Description 05/15/2022 Hospital Encounter Surgery Singh Torres MD [facility] [address] [place] [address] (Wo rk) 05/15/2022 Surgery Surgery Neo Torres MD BLEPHAROPLASTY BILATERAL [facility] & [facility] PTOSIS REPAIR BILATERAL [address] [place] [id number] (Wo rk) 06/25/2022 Ancillary Procedure Cardiology Kirk Silver MD [address] [place] [address] (Wo rk) Scheduled Procedures Name Priority Associated [...] on filedocumented in this encounter Care Teams Quality Control Associate Relationship Specialty Start Date End Date Anatoliy Jackson, PCP - General 05/14/12 Heath More PCP - Internal Medicine INTERNAL MEDICINE - 01/06/14 MD Andreas ENDOCRINOLOGY, DIABETES [facility] [address] [place] [address] Peter Gipson PCP - Urology 04/02/15 MD Jordan [facility] UR[facility]Y [address] [place] [id number] Peter Mcmullen Assigned Musculoskeletal 06/01/20 MD Mahendra Provider [address] [facility] [address] [place] [address] Giuliana Gomez Assigned Heart and 06/30/21 A, PAVING RAMMER POACHER WRINGER OPERATOR Vascular Provider [address] [place] [phone] Giuliana Gomez Nurse Practitioner Cardiovascular Disease 2 A, PAVING RAMMER POACHER WRINGER OPERATOR [address] [place] [address] Fidencio Solis MD MD Cardiovascular Disease 08/21/[address], [facility] [address] [place] [address] documented as of this encounter
--- OUTSIDE RECORDS SUMMARY | 2022-05-02 12:22 | XMS_ITS | Encounter Summary ---
:1950 Author Organization [place] Address [address] [place] [address] Care Team Providers Name Role Phone Anatoliy Jackson MD Primary Care Provider Heath More MD Unavailable Peter Gipson MD Unavailable Peter Mcmullen MD Unavailable Giuliana Gomez APRN SEISMIC OBSERVER Unavailable [phone] Giuliana Gomez APRN SEISMIC OBSERVER Unavailable [phone] Fidencio Solis MD Unavailable Reason for Visit Reason Comments CORE Essential hypertension Results BMP & BNP Consultation (Routine: Next available opening) - Pending Review Specialty Diagnoses / Procedures Referred By Contact Refer red To Contact Cardiovascular Disease Diagnoses Essential hypertension Giuliana Gomez APRN SEISMIC OBSERVER [address] [place] [address] Referral ID Status Reason Start Date Expiration Date Visits V isits Requested Authorized [id number] Pending 10/16/2021 10/16/2022 1 1 Review Encounter Details Date Type Department Care Team Description 10/29/[address]N SEISMIC OBSERVER [address] [place] [phone] Essential [facility], Giuliana Hernandez, FRENCH LECTURER SEISMIC OBSERVER [address] [place], [place] [id number] [facility] [address] [facility] [address] [place] [address] Social History Tobacco Use Types [...] been in contact with No / Unsure 10/29/2021 11:13 AM CDT someone who was confirmed or 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 documented as of this encounter Last Filed Vital Signs Vital Sign Reading Time Taken Comments Blood Pressure 126/52 10/29/2021 12:37 PM CDT Pulse 64 10/29/2021 12:37 PM CDT Temperature - - Respiratory Rate - - Oxygen Saturation 98% 10/29/2021 12:37 PM CDT Inhaled Oxygen Concentration - - Weight 101.7 kg (224 lb 3.2 10/29/2021 12:37 PM 216# HO ME WT oz) CDT Height 180.3 cm (5' 11) 10/29/2021 12:37 PM CDT Body Mass Index 31.27 10/29/2021 12:37 PM CDT documented in this encounter Patient Instructions Patient InstructionsLucretia Trent CMA - 10/29/2021 12:30 PM CDT Call CORE nurse for any questions or concerns Mon-Fri 8am-4pm: #[phone] For concerns after hours: #[phone] Medication changes: no changes Plan from today: 1. [facility] appt. 2. See Dr[address] Solis 10/2022 Lab results: see attached: Component Latest Ref Rng & Units 10/16/2021 10/29/2021 Sodium 133 - 144 mmol/L 144 140 Potassium 3.4 - 5.3 mmol/L 4.7 4.8 Chloride 94 - 109 mmol/L 114 (H) 113 (H) Carbon Dioxide 20 - 32 mmol/L 25 22 Anion Gap 3 - 14 mmol/L 5 5 Urea Nitrogen 7 - 30 mg/dL 39 (H) 49 (H) Creatinine 0.66 - 1.25 mg/dL 1.22 1.37 (H) Calcium 8.5 - 10.1 mg/dL 9.2 8.5 Glucose 70 - 99 mg/dL 102 (H) 127 (H) GFR Estimate >60 mL/min/1.73m2 63 55 (L) N-Terminal Pro Bnp 0 - 125 pg/mL 783 (H) documented in this encounter Progress Notes Giuliana Gomez APRN CNP - 10/29/2021 12:30 PM CDT CARDIOLOGY CLINIC / [facility] 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 Solis REASON FOR VISIT: post hospital for symptomatic bradycardia associated with sinus node dysfunction. ??He underwent successful dual-chamber pacemaker 10/15/21. Clonidine stopped. HISTORY OF PRESENT ILLNESS: I had the opportunity to see patient Nikita Anderson in cardiology clinic for a follow up visit. ?? 70-year-old male with a past medical history significant for the followin. Anxiety 2. CARLITOS 3. Hypertension 4. Hyperlipidemia 5. Diabetes 5. Chronic kidney disease 6. Coronary artery disease status post PCI??and CABG (DOUGLASS to LAD, rSVG to PDA, rSVG to OM2) 7. post CABG and pleural effusions 8. Ischemic cardiomyopathy 9. Successful dual-chamber pacemaker 10/15/21. ?? Patient has an extensive prior cardiac history. ??He had been experiencing some chest discomfort in 2012, and so underwent a nuclear stress test that was abnormal. ??Coronary angiography/heart catheterization 07/2013 demonstrated nonobstructive coronary artery disease. ??Subsequently he had experienced dyspnea on exertion and a nuclear stress test 12/2014 was also abnormal. ??Coronary angiography 12/2014 demonstrated obstructive coronary artery disease, unfortunately patient had been planning to go toa trip to [place] shortly thereafter. ??As his symptoms were stable, the decision was made to medically manage his coronary artery disease so that he may go on this trip. ??When he returned, he underwent cardiac catheterization/coronary angiography again 04/09/2015 with PCI of OM 2 and ostial and proximal left circumflex arteries. ??Last coronary angiogram was 04/01/2016 and was done after he was found to have an abnormal nuclear stress test (preop), and demonstrated widely patent stents.? Seen in the clinic 12/14/2020, experiencing worsening dyspnea on exertion, and so he was evaluated with a nuclear stress test that was abnormal. ??Subsequent coronary angiogram 03/13/2021 demonstrated obstructive disease in the LAD and RCA, also with a CHIEF POWER DISPATCHER of OM 2. ??Patient underwent bypass surgery with Dr. Gardner on 04/19/2021, DOUGLASS to LAD, reverse SVG to PDA, reverse SVG to OM 2. ?? Unfortunately 04/28/2021 he was admitted with weakness and falls, and with GENO. ??He was also found to be borderline at bradycardic, and so carvedilol was discontinued. ??He was found to have a pleural effusion for which he underwent thoracentesis 04/29/2021. ??Furosemide and lisinopril were also discontinued. A Holter monitor was done 05/07 to 05/09/2021 that demonstrated 2 short episodes of atrial tachycardiavs??atrial fibrillation, one episode lasting 23 seconds, and another lasting 39 seconds. ??For follow-up, cardiac event monitor was placed for 30 days, this revealed no atrial fibrillation, however didshow one 7 beat run of nonsustained VT at 197 bpm. ??He did require repeat thoracentesis 05/14/2021 with removal of 1.3 L of fluid. ?? TTE 06/06/2021 demonstrates LVEF 46% with severe inferior/inferoseptal hypokinesis, moderately reduced RV function, pleural effusion, trivial pericardial effusion. ?? Seen in clinic again 06/12/2021. At that time he reviewed the decrease in LV function on the TTE from05/2021. For further assessment, patient underwent a nuclear stress test that was abnormal, subsequently underwent coronary angiography/bypass angiography 07/03/2021 that demonstrated DOUGLASS to LAD and SVG to RPDA widely patent, SVG to OM 3 stump occluded, however this was thought to feed a relatively small myocardial territory and would not explain echocardiographic findings. [place] vessel CAD was otherwise unchanged from pre- CABG coronary angiogram 03/2021. Since patient was asymptomatic of angina, this has been managed medically. ?? 10/10/[address] Solis. He reported that he has been evaluated by endocrinology, and tests for Conn syndrome have been negative (patient has a family history of Conn syndrome). Renal artery Doppler ultrasounds 04/2021 negative for renal artery stenosis. Patient does have sleep apnea, and has been using his CPAP every night. Of note, patient's , remarked the patient has some degree of anxiety, and has been watching [place] news quite extensively, especially with the [place] crisis. Politics seems to be a trigger for emotional stress. Fortunately, he denied any chest pain, chest pressure, dizziness/li ghtheadedness. Dr. Solis increased clonidine 0.1 mg twice daily to 0.2 mg twice daily, changed Imdur 60mg daily to Isordil 30 mg 3 times daily, continued hydralazine 75 mg 3 times daily, amlodipine, carvedilol, lisinopril, aspirin, and rosuvastatin. He also referred him to [facility] hypertension clinic. 10/14/21 patient presented to ED with dizziness and was found to have symptomatic bradycardia associated with sinus node dysfunction. ??He underwent successful dual-chamber pacemaker 10/15/21. Clonidine stopped. 10/28/21 device check. AP: 25% , AUTO GARAGE MECHANIC: <1%, Mode: DDDR 60-130, Underlying Rhythm: SBrady at 51-52bpm Heart Rate: Stable with good variability. HRs per histogram range from 60-120 and primarily from 60-100. 10/29/21 he returns to follow up. He states he feeling okay. Denies chest pain, chest pressure, neck or arm pain. BP in the clinic today 120/52. Patient took his own BP in the clinic and it was 154/70. He states he is not taking isordil because of cost. He went back to Imdur 60mg daily. PREVIOUS STUDIES (personally reviewed): BMP RESULTS: 10/29/21 NA 140, K+4.8, bun 49, creat. 1.37; GFR 55 Echocardiography: 05/2021 The left ventricle is borderline dilated. There is mild concentric left ventricular hypertrophy. Biplane LVEF is 46%. There is moderate to severe inferior/inferoseptal wall hypokinesis. The right ventricle is normal size. Moderately decreased right ventricular systolic function The right ventricular systolic pressure is approximated at 30mmHg plus the right atrial pressure. Trivial pericardial effusion Large left pleural effusion Compared to the last echo the LV function is better seen and there is now an inferior wall motion abnormality appreciated. right heart pressures are similar. Pleural effusion not previously seen. RV function better seen, appears worse. Device: 10.28.21 AP: 25% AUTO GARAGE MECHANIC: <1% Mode: DDDR 60-130 Underlying Rhythm: SBrady at 51-52 bpm Heart Rate: Stable with good variability. HRs per histogram range from 60-120 and primarily from 60-100. ?? Assessment??/Recommendations: 1. Mild ischemic CM, TTE 06/06/2021 LVEF 46%, down from TTE 01/02/21 LVEF 55-60%. Denies symptoms concerning for angina, however did have 7 beat run of NSVT noted on cardiac event monitor.?? Coronary angiography/bypass angiography 07/03/2021 that demonstrated DOUGLASS to LAD and SVG to RPDA widely patent, SVG to OM stump occluded, however this was thought to feed a relatively small myocardial territory and would not explain echocardiographic findings. [place] vessel CAD was otherwise unchanged from pre-CABG coronary angiogram 03/2021. Since patient was asymptomatic of angina, this has been managed medically. 2. CAD with recent CABG 04/19/2021,??DOUGLASS to LAD, reverse SVG to PDA, reverse SVG to OM 2 (occluded). 3.??Post CABG atrial tachycardia vs atrial fibrillation on Holter monitor 05/07/21 (23s, 39s), no recurrence seen on subsequent 30d event monitor. 4. Bradycardia - recent admission for weakness / found to be bradycardic. - PPM placed - device check stable 3.??HTN -challenging to control. -Dr. Solis referred him to [facility], set up to be seen in December -Clonidine stopped in the hospital. 4. CARLITOS, recently dx, on CPAP 5. Anxiety 6.HL 7.??DM 8. CKD 9. Trivial pericardial effusion ?? Thank you for the opportunity to be involved in this very pleasant patient's care please feel to contact me with any questions. Total time: 34 minutes was spent today reviewing the chart, visiting the patient, and documenting the visit. Giuliana Gomez APRN, SEISMIC OBSERVER Nurse Practitioner [facility] CURRENT MEDICATIONS: Current Outpatient Medications Medication Sig Dispense Refill ??? acetaminophen (TYLENOL) 325 MG tablet Take 650 mg by mouth At Bedtime ??? acetaminophen (TYLENOL) 325 MG tablet Take 2 tablets (650 mg) by mouth every 4 hours as needed for mild pain 40 tablet 0 ??? amLODIPine (NORVASC) 10 MG tablet Take 10 mg by mouth At Bedtime ??? aspirin (ASA) 325 MG tablet Take 325 mg by mouth daily ??? carvedilol (COREG) 12.5 MG tablet Take 1 tablet (12.5 mg) by mouth 2 times daily (with meals) Amand 2030 60 tablet 3 ??? clotrimazole (LOTRIMIN) 1 % external solution Instill 5 drops into left ear two times daily, laywith ear up for at least 10 minutes after use. Use a cotton ball with vaseline when showering to keep dry. ??? Continuous Blood Gluc Sensor (DEXCOM G6 SENSOR) MISC ??? Copper Gluconate (COPPER CAPS) 2 MG CAPS Take by mouth daily ??? cyanocobalamin (VITAMIN B-12) 1000 MCG tablet Take 1,000 mcg by mouth daily ??? Ferrous Sulfate 324 (65 Fe) MG TBEC Take by mouth every morning Rx out, now getting it OTC ??? gabapentin (NEURONTIN) 300 MG capsule Take 1 capsule (300 mg) by mouth 2 times daily (Patient taking differently: Take 300 mg by mouth 2030 and 2300) ??? glucagon 1 MG kit 1 mg once as needed for low blood sugar ??? HEMP OIL OR EXTRACT OR OTHER CBD CANNABINOID, NOT MEDICAL CANNABIS, Apply 1 Application topically 2 times daily as needed (Arthritis on right knee and wrist) Topical cream ? ? hydrALAZINE (APRESOLINE) 25 MG tablet Take 25 mg by mouth daily At 2030 if SBP >170. Was previously taking as needed but has recently been taking scheduled. ??? hydrALAZINE (APRESOLINE) 25 MG tablet Take 1 tablet (25 mg) by mouth 3 times daily Take 1 [id number] three times daily in addition 1 tablet 50mg three times daily, for a total of 75mg three times daily 270 tablet 3 ??? hydrALAZINE (APRESOLINE) 50 MG tablet Take 1 tablet (50 mg) by mouth 3 times daily Take 1 [id number] three times daily in addition 1 tablet 50mg three times daily, for a total of 75mg three times daily 270 tablet 3 ??? insulin lispro (HUMALOG) 100 UNIT/ML injection by Device route See Admin Instructions ??? INSULIN PUMP - OUTPATIENT BASAL RATES and times: 0000 - 0500 : 1.1 units/hour, 0500 [...] 35 mg/dL BLOOD GLUCOSE TARGET: 110 mg/dL ??? isosorbide dinitrate (ISORDIL) 30 MG tablet Take 1 tablet (30 mg) by mouth 3 times daily 270 tablet 3 ??? isosorbide mononitrate (IMDUR) 60 MG 24 hr tablet Take 60 mg by mouth daily 1630 ??? lisinopril (ZESTRIL) 10 MG tablet Take 1 tablet (10 mg) by mouth daily At bedtime 90 tablet 1 ??? melatonin 3 MG CAPS Take 10 mg by mouth At Bedtime ??? ONE TOUCH ULTRA TEST STRP as directed 100 prn ??? Polyethylene Glycol 400 (BLINK TEARS OP) Place 1 drop into both eyes daily as needed ??? rosuvastatin (CRESTOR) 40 MG tablet Take 1 tablet (40 mg) by mouth every evening 90 tablet 3 ??? sertraline (ZOLOFT) 50 MG tablet Take 50 mg by mouth daily Sleep doctor recommends taking at bedtime ??? SYRINGE B-D MICRO FINE 1/2 CC SYRINGES as directed 100 prn ??? Turmeric 500 MG CAPS Take 1 capsule by mouth every morning ALLERGIES Allergies Allergen Reactions ??? Atorvastatin Other (See Comments) Congestion ??? Epinephrine Palpitations PAST MEDICAL, SURGICAL, FAMILY HISTORY: History was reviewed and updated as needed, see medical record. ROS: 12-pt ROS is negative except for as noted above. PHYSICAL EXAMINATION: Vitals: BP 126/52, HR 64 bpm, weight 224 pounds. Constitutional: Patient is pleasant, alert, cooperative, and in NAD. HEENT: NCAT. PERRLA. EOM's intact. Neck: no JVD Pulmonary: clear Cardiac: regular rate, regular rhythm, normal S1 and S2, no S3, S4, no murmur Abdomen: Soft, non-tender abdomen, no hepatosplenomegaly appreciated. Extremities: no edema Neurological: No gross motor or sensory deficits. Psych: Appropriate affect Past Medical History: Diagnosis Date ??? Angina pectoris (H) ??? Cancer (H) 1980 Melanoma ??? Coronary artery disease 07/2013, 12/2014 moderate to severe 3v CAD 12/2014 ??? Diabetes (H) ??? 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 Pure hypercholesterolemia Abstracted 01/20/02 ??? PVD (peripheral vascular disease) (H) ??? Type II or unspecified type diabetes mellitus with neurological manifestations, not stated as uncontrolled(250.60) Abstracted 01/20/02 ??? Unspecified essential hypertension Past Surgical History: Past Surgical History: Procedure Laterality Date ??? ANGIOGRAM 04/09/2015 Successful PCI to mid-LCX with JAVIER, Successful PCI to OM2 with JAVIER. Successful PCI to Ostial LCX with JAVIER ??? BYPASS GRAFT ARTERY CORONARY N/A 04/19/2021 Procedure: CORONARY ARTERY BYPASS GRAFT X 3 (DOUGLASS-LAD, SV-OM, SV-PDA), WITH LEFT LOWER EXTREMITY ENDOSCOPIC VEIN HARVEST, ON PUMP WITH KARIE READ BY ANESTHESIOLOGIST DR GUTIERREZ.; Surgeon: Kushal Gardner MD; Location: OR ??? CORONARY ANGIOGRAPHY ADULT ORDER 07/2013 RCA 40-50% stenosis, prox PDA 60%, left circ 50-60%. Mod. nonobstructive CAD ??? CV ANGIOGRAM CORONARY GRAFT N/A 07/03/2021 Procedure: Angiogram Coronary Graft; Surgeon: Mahendra Vega MD; Location: HEART CARDIAC SURGICAL SCRUB TECHNOLOGIST ??? CV CORONARY ANGIOGRAM N/A 03/13/2021 Procedure: Coronary Angiogram; Surgeon: Darwin Valero MD; Location: HEART CARDIAC SURGICAL SCRUB TECHNOLOGIST ??? CV HEART CATHETERIZATION WITH POSSIBLE INTERVENTION N/A 07/03/2021 Procedure: Coronary Angiogram; Surgeon: Mahendra Vega MD; Location: HEART CARDIAC CATHLAB ??? CV INSTANTANEOUS WAVE-FREE RATIO N/A 03/13/2021 Procedure: Instantaneous Wave-Free Ratio; Surgeon: Darwin Valero MD; Location: [facility] CARDIAC SURGICAL SCRUB TECHNOLOGIST ??? CV LEFT HEART CATH N/A 07/03/2021 Procedure: Left Heart Cath; Surgeon: Mahendra Vega MD; Location: HEART CARDIAC SURGICAL SCRUB TECHNOLOGIST ??? CV LEFT VENTRICULOGRAM N/A 07/03/2021 Procedure: Left Ventriculogram; Surgeon: Mahendra Vega MD; Location: HEART CARDIAC SURGICAL SCRUB TECHNOLOGIST ??? CV TEMPORARY PACEMAKER INSERTION N/A 10/14/2021 Procedure: Temporary Pacemaker Insertion; Surgeon: Mahendra Vega MD; Location: HEART CARDIAC SURGICAL SCRUB TECHNOLOGIST ??? EP PACEMAKER Left 10/15/2021 Procedure: EP Pacemaker; Surgeon: Alvarado Syed MD; Location: HEART CARDIAC SURGICAL SCRUB TECHNOLOGIST ??? HC LEFT HEART CATHETERIZATION 04/01/2016 mild LAD (30%), 50-60% rPDA ? ? HEAD & NECK SURGERY wisdom teeth extractions, subacious cyst removed ??? HEART CATH CORONARY ANGIOGRAM W/LV GRAM 01/03/15 70% prox PDA - FFR 0.77, 70% OM2 - FFR 0.79, 70-80% OM3 -FFR 0.77, 70-80% OM4, Recent Lab Results: LIPID RESULTS: Lab Results Component Value Date CHOL 115 06/06/2021 CHOL 115 12/21/2020 HDL 41 06/06/2021 HDL 31 (L) 12/21/2020 LDL 49 06/06/2021 LDL 34 12/21/2020 TRIG 123 06/06/2021 TRIG 251 (H) 12/21/2020 CHOLHDLRATIO 3.5 04/09/2015 LIVER ENZYME RESULTS: Lab Results Component Value Date AST 22 04/29/2021 AST 16 01/02/2021 ALT 22 06/06/2021 ALT 23 01/02/2021 CBC RESULTS: Lab Results Component Value Date WBC 9.0 10/15/2021 WBC 8.8 01/02/2021 RBC 3.67 (L) 10/15/2021 RBC 3.93 (L) 01/02/2021 HGB 10.2 (L) 10/15/2021 HGB 11.3 (L) 01/02/2021 HCT 31.7 (L) 10/15/2021 HCT 34.5 (L) 01/02/2021 MCV 86 10/15/2021 MCV 88 01/02/2021 MCH 27.8 10/15/2021 MCH 28.8 01/02/2021 MCHC 32.2 10/15/2021 MCHC 32.8 01/02/2021 RDW 14.9 10/15/2021 RDW 12.9 01/02/2021 PLT 185 10/15/2021 PLT 202 01/02/2021 BMP RESULTS: Lab Results Component Value Date NA 144 10/16/2021 NA 142 01/02/2021 POTASSIUM 4.7 10/16/2021 POTASSIUM 4.8 01/02/2021 CHLORIDE 114 (H) 10/16/2021 CHLORIDE 112 (H) 01/02/2021 CO2 25 10/16/2021 CO2 26 01/02/2021 ANIONGAP 5 10/16/2021 ANIONGAP 4 01/02/2021 GLC 102 (H) 10/16/2021 GLC 115 (H) 01/02/2021 BUN 39 (H) 10/16/2021 BUN 40 (H) 01/02/2021 CR 1.22 10/16/2021 CR 1.56 (H) 01/02/2021 GFRESTIMATED 63 10/16/2021 GFRESTIMATED 44 (L) 01/02/2021 GFRESTBLACK 51 (L) 01/02/2021 RICHIE 9.2 10/16/2021 RICHIE 8.6 01/02/2021 A1C RESULTS: Lab Results Component Value Date A1C 7.4 (H) 10/14/2021 A1C 9.7 (A) 06/07/2014 INR RESULTS: Lab Results Component Value Date INR 1.07 07/03/2021 INR 1.31 (H) 04/19/2021 INR 1.03 04/27/2016 INR 1.08 03/31/2016 This note was completed in part using [employer] voice recognition software. Although reviewed after completion, some word and grammatical errors may occur. documented in this encounter Plan of Treatment Upcoming Encounters Date Type Specialty Care Team Description 05/15/2022 Hospital Encounter Surgery Singh Torres MD [facility] [address] [place] [address] (Wo rk) 05/15/2022 Surgery Surgery Neo Torres MD BLEPHAROPLASTY BILATERAL [facility] PTOSIS REPAIR BILATERAL [address] [place] [address] (Wo rk) 06/25/2022 Ancillary Procedure Cardiology Kirk Silver MD [address] [place] [id number] (Wo rk) Scheduled Procedures Name Priority Associated Diagnoses Date/Time REPAIR, PTOSIS, BILATERAL, Dermatochalas is 05/15/2022 7:30 AM CDT WITH BILATERAL BLEPHAROPLASTY 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 REPAIR, ECTROPION, EYE, Dermatochalasis 05/15/2022 7:30 AM CDT BILATERAL 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 documented as of this encounter Visit Diagnoses Diagnosis Essential hypertension Unspecified essential hypertension 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 [address] [place] [address] Peter Mcmullen Assigned Musculoskeletal 06/01/20 MD Mahendra Provider [address] [place], [place] [address] Giuliana Gomez Assigned Heart and 06/30/21 A, FRENCH LECTURER SEISMIC OBSERVER Vascular Provider [address] [place] [address] Giuliana Gomez Nurse Practitioner Cardiovascular Disease 2 A, FRENCH LECTURER SEISMIC OBSERVER [address] [place] [address] Fidencio Solis MD MD Cardiovascular Disease 08/21/[address], [facility] [address] [place] [id number] documented as of this encounter
--- OUTSIDE RECORDS SUMMARY | 2022-05-02 12:22 | XMS_ITS | Encounter Summary ---
:1950 Author Organization [facility] Address [address] [facility] [place] [address] Care Team Providers Name Role Phone Anatoliy Jackson MD Primary Care Provider Heath More MD Unavailable Peter Gipson MD Unavailable Peter Mcmullen MD Unavailable Giuliana Gomez APRN S[employer] Unavailable Giuliana Gomez APRN S[employer]ER Unavailable [phone] Fidencio Solis MD Unavailable Reason for Referral Care Coordination (Routine: Next available opening) - Pending Review Specialty Diagnoses / Procedures Referred By Contact Refer red To Contact Diagnoses Other [place] [address] [place] [address] Referral ID Status Reason Start Date Expiration Date Visits V isits Requested Authorized [id number] Pending 10/17/2021 10/17/2022 1 1 Review SS RN Encounter Details Date Type Department Care Team Description 10/17/[address] 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 documented as of this encounter Plan of Treatment Upcoming Encounters Date Type Specialty Care Team Description 05/15/2022 Hospital Encounter Surgery Singh Torres MD [facility] [address] [place] [id number] (Wo rk) 05/15/2022 Surgery Surgery Neo Torres MD BLEPHAROPLASTY BILATERAL [facility] PTOSIS REPAIR BILATERAL [address] [place] [id number] (Wo rk) 06/25/2022 Ancillary Procedure Cardiology Kirk Silver MD [address] [place] [id number] (Wo rk) Scheduled Procedures Name Priority Associated Diagnoses Date/Time REPAIR, PTOSIS, BILATERAL, Dermatochalas is 05/15/2022 7:30 AM CDT WITH BILATERAL BLEPHAROPLASTY 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 REPAIR, ECTROPION, EYE, Dermatochalasis 05/15/2022 7:30 AM CDT BILATERAL 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 Scheduled Referrals Name Type Priority Associated Diagnoses Order [facility] Referral Routine: Next Other specified Expected: Discharge - available opening counseling 10/17/2021 Referral to CC (Approximate) , Expires: 10/17/2022 documented as of this encounter Visit Diagnoses Diagnosis Other specified counseling 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 documented in this encounter Care Teams Supervisor Plastic Sheets Relationship Specialty Start Date End Date Anatoliy Jackson, PCP - General 05/14/12 Heath More PCP - Internal Medicine INTERNAL MEDICINE - 01/06/14 MD Andreas END[facility] [address] [place] [id number] Peter Gipson PCP - Urology 04/02/15 MD Jordan [facility] [address] [place] [id number] Peter Mcmullen Assigned Musculoskeletal 06/01/20 MD Mahendra Provider [address] [place], [place] [id number] Giuliana Gomez Assigned Heart and 06/30/21 A, [employer] Vascular Provider [address] [place] [address] Giuliana Gomez Nurse Practitioner Cardiovascular Disease 2 A, [employer] [address] [place] [id number] Fidencio Solis MD MD Cardiovascular Disease 08/21/[address], [facility] [address] [place], [place] [phone] documented as of this encounter
--- OUTSIDE RECORDS SUMMARY | 2022-05-02 12:22 | XMS_ITS | Encounter Summary ---
:1950 Author Organization [place] Address [address] [place] [address] Care Team Providers Name Role Phone Anatoliy Jackson MD Primary Care Provider Heath More MD Unavailable Peter Gipson MD Unavailable Peter Mcmullen MD Unavailable Giuliana Gomez APRN PARK ACTIVITIES COORDINATOR Unavailable [phone] Giuliana Gomez APRN PARK ACTIVITIES COORDINATOR Unavailable Fidencio Solis MD Unavailable Reason for Referral Consultation (Routine: Next available opening) - Pending Review Specialty Diagnoses / Procedures Referred By Contact Refer red To Contact Cardiovascular Disease Diagnoses Essential hypertension Giuliana Gomez APRN PARK ACTIVITIES COORDINATOR [address] [place] [address] Referral ID Status Reason Start Date Expiration Date Visits V isits Requested Authorized [id number] Pending 10/16/2021 10/16/2022 1 1 Review ed Therapy Management (Routine) Specialty Diagnoses / Procedures Referred By Contact Refer red To Contact [facility] [address] [place] [address] Referral ID Status Reason Start Date Expiration Date Visits Requ ested Visits Authorized RACT LOADER Reason for Visit Auth/Cert Specialty Diagnoses / Procedures Referred By Contact Refer red To Contact Coronary Intensive Diagnoses Bradycardia pacemaker placement Bradycardia Coronary Care Care Unit [address] , [address] [place] [address] Phone: Referral ID Status Reason Start Date Expiration Date Visits Requ ested Visits Authorized [id number] 1 1 Encounter Details Date Type Department Care Team Description 10/14/2021 - Hospital Encounter [facility] Kaitlin Horn tional bradycardia (Primary Dx); 10/16/2021 [facility] MD Fadi Bradycardia; Care Unit [address] Near syncope; [address] Essential hypertension; [address] [place] [address] S/P CABG (coronary artery bypass graft) [place] [phone] [id number] (Work) [phone] Social History Tobacco Use Types Packs/Day Years [...] with No / Unsure 10/14/2021 11:58 AM CONTRACT LOADER someone who was confirmed or 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 documented as of this encounter Last Filed Vital Signs Vital Sign Reading Time Taken Comments Blood Pressure 128/55 10/16/2021 12:00 PM CONTRACT LOADER Pulse 76 10/16/2021 12:00 PM CONTRACT LOADER Temperature 36.6 ??C (97.8 ??F) 10/16/2021 12:00 PM CONTRACT LOADER Respiratory Rate 12 10/16/2021 12:00 PM CONTRACT LOADER Oxygen Saturation 99% 10/16/2021 12:00 PM CONTRACT LOADER Inhaled Oxygen Concentration - - Weight 96.5 kg (212 lb 11.9 oz) 10/15/2021 5:00 AM CONTRACT LOADER Height - - Body Mass Index 29.67 10/14/2021 12:01 PM CONTRACT LOADER documented in this encounter Discharge Summaries Ebenezer Luu MD - 10/16/2021 11:15 AM CST [facility] Discharge Summary Nikita Anderson Date of : 1950 Age: [age] year old Date of Admission: 10/14/2021 Date of Discharge: 10/16/2021 Admitting Physician: Fadi Horn MD Discharge Physician: Ebenezer Luu MD Primary Provider: Anatoliy Jackson Primary Care Physician Phone Number: None Discharge Diagnoses: 1. Symptomatic bradycardia with junctional [...] H/o post-CABG atrial tachycardia versus atrial fib. Allergies: Allergies Allergen Reactions ??? Atorvastatin Other (See Comments) Congestion ??? Epinephrine Palpitations Discharge Medications: Current Discharge Medication List CONTINUE these medications which have CHANGED Details carvedilol (COREG) 12.5 MG tablet Take 1 tablet (12.5 mg) by mouth 2 times daily (with meals) Am [id number] Qty: 60 tablet, Refills: 3 Associated Diagnoses: Essential hypertension CONTINUE these medications which have NOT CHANGED Details !! acetaminophen (TYLENOL) 325 MG tablet Take 650 mg by mouth At Bedtime !! acetaminophen (TYLENOL) 325 MG tablet Take 2 tablets (650 mg) by mouth every 4 hours as needed for mild pain Qty: 40 tablet, Refills: 0 Associated Diagnoses: S/P CABG (coronary artery bypass graft) amLODIPine (NORVASC) 10 MG tablet Take 10 mg by mouth At Bedtime Associated Diagnoses: Essential hypertension; S/P CABG (coronary artery bypass graft) aspirin (ASA) 325 MG tablet Take 325 mg by mouth daily clotrimazole (LOTRIMIN) 1 % external solution Instill 5 drops into left ear two times daily, lay with ear up for at least 10 minutes after use. Use a cotton ball with vaseline when showering to keep dry. Copper Gluconate (COPPER CAPS) 2 MG CAPS Take by mouth daily cyanocobalamin (VITAMIN B-12) 1000 MCG tablet Take 1,000 mcg by mouth daily Ferrous Sulfate 324 (65 Fe) MG TBEC Take by mouth every morning Rx out, now getting it OTC gabapentin (NEURONTIN) 300 MG capsule Take 1 capsule (300 mg) by mouth 2 times daily Associated Diagnoses: S/P CABG (coronary artery bypass graft) glucagon 1 MG kit 1 mg once as needed for low blood sugar HEMP OIL OR EXTRACT OR OTHER CBD CANNABINOID, NOT MEDICAL CANNABIS, Apply 1 Application topically 2 times daily as needed (Arthritis on right knee and wrist) Topical cream !! hydrALAZINE (APRESOLINE) 25 MG tablet Take 25 mg by mouth daily At 2030 if SBP >170. Was previously taking as needed but has recently been taking scheduled. !! hydrALAZINE (APRESOLINE) 25 MG tablet Take 1 tablet (25 mg) by mouth 3 times daily Take 1 tablet 25mg three times daily in addition 1 tablet 50mg three times daily, for a total of 75mg three times daily Qty: 270 tablet, Refills: 3 Associated Diagnoses: Essential hypertension !! hydrALAZINE (APRESOLINE) 50 MG tablet Take 1 tablet (50 mg) by mouth 3 times daily Take 1 tablet 25mg three times daily in addition 1 tablet 50mg three times daily, for a total of 75mg three times daily Qty: 270 tablet, Refills: 3 Associated Diagnoses: Essential hypertension insulin lispro (HUMALOG) 100 UNIT/ML injection by Device route See Admin Instructions INSULIN PUMP - OUTPATIENT BASAL RATES and [...] 35 mg/dL BLOOD GLUCOSE TARGET: 110 mg/dL isosorbide mononitrate (IMDUR) 60 MG 24 hr tablet Take 60 mg by mouth daily 1630 lisinopril (ZESTRIL) 10 MG tablet Take 1 tablet (10 mg) by mouth daily At bedtime Qty: 90 tablet, Refills: 1 Associated Diagnoses: S/P CABG (coronary artery bypass graft) melatonin 3 MG CAPS Take 10 mg by mouth At Bedtime Polyethylene Glycol 400 (BLINK TEARS OP) Place 1 drop into both eyes daily as needed rosuvastatin (CRESTOR) 40 MG tablet Take 1 tablet (40 mg) by mouth every evening Qty: 90 tablet, Refills: 3 Associated Diagnoses: Coronary artery disease involving chinik coronary artery of chinik heart without angina pectoris; Hyperlipidemia LDL goal <70; S/P coronary artery stent placement sertraline (ZOLOFT) 50 MG tablet Take 50 mg by mouth daily Sleep doctor recommends taking at bedtime Turmeric 500 MG CAPS Take 1 capsule by mouth every morning Continuous Blood Gluc Sensor (DEXCOM G6 SENSOR) MISC isosorbide dinitrate (ISORDIL) 30 MG tablet Take 1 tablet (30 mg) by mouth 3 times daily Qty: 270 tablet, Refills: 3 Associated Diagnoses: Essential hypertension ONE TOUCH ULTRA TEST STRP as directed Qty: 100, Refills: prn Associated Diagnoses: Type II or unspecified type diabetes mellitus without mention of complication, not stated as uncontrolled SYRINGE B-D MICRO FINE 1/2 CC SYRINGES as directed Qty: 100, Refills: prn !! - Potential duplicate medications found. Please discuss with provider. STOP taking these medications cloNIDine (CATAPRES) 0.2 MG tablet Comments: Reason for Stopping: Discharge Instructions and Follow-Up: Discharge Orders Medication Therapy Management Referral Follow-Up with Cardiology [place] Reason for your hospital stay Bradycardia with junctional rhythm requiring permanent pacemaker. Follow-up and recommended labs and tests Follow-up with primary care provider, Anatoliy Jackson, within 7 days for hospital follow-up. The following labs/tests are recommended: CBC, BMP. Cardiac follow-up per [facility] Cardiology. Activity Your activity upon discharge: activity as tolerated Diet Follow this diet upon discharge: Orders Placed This Encounter Low Saturated Fat Na <2400 mg Consultations This Hospital Stay: Cardiology. Admission History: Please see the H&P by Fadi Horn MD on 10/14/2021 for complete details. Briefly, Nikita Anderson is a 70 year old male admitted on 10/14/2021 with past medical history significant for obesity, DM1 with neuropathy, HTN, CAD s/p CABG (04/2021), CHF, CKD and h/o prostate cancer, who initially presented to [facility] 10/14/2021 with dizziness and found to be bradycardic with junctional rhythm. Temporary pacemaker placed and transferred to [facility] 10/14/2021 for management. Problem Oriented Hospital Course: ?? Symptomatic bradycardia with junctional rhythm - s/p PPM placement 10/15/2021. 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 On initial evaluation at [facility], ECG initially showed marked sinus bradycardia and repeat ECG showed junctional rhythm. Trop negative. Evaluated by Cardiology and underwent temporary pacemaker placement 10/14 and subsequently transferred to [facility]. * PLANT FACILITIES TECHNICIAN carvedilol and clonidine held on admit. * [...] (benign essential; h/o difficult to control BP's). [PLANT FACILITIES TECHNICIAN: amlodipine 10 mg daily; clonidine 0.2 mg BID (recently increased PLANT FACILITIES TECHNICIAN); carvedilol 6.25 mg BID;hydralazine 75 mg TID; ISMN 60 mg daily; lisinopril 10 mg daily.] * Echo 05/2021 showed LVEF 46% with WMA's; RV moderate decreased systolic function. * Clonidine had recently been increased from 0.1 mg to 0.2 mg BID PLANT FACILITIES TECHNICIAN. PLANT FACILITIES TECHNICIAN clonidine and carvedilol held on admit. * Carvedilol restarted at increased 10/16. - Continue ASA, rosuvastatin, PRN NTG. - Continue amlodipine 10 mg daily, carvedilol 12.5 mg BID (increased), hydralazine 75 mg TID, ISMN 60 mg daily, lisinopril 10 mg daily. - Stop clonidine at discharge. - Follow-up outpatient. - Pt has follow-up with [facility] regarding labile and resistant hypertension. Anemia, suspect chronic component. * Hgb 11.2 on admit. No overt clinical signs of major bleeding. Recent Labs Lab 10/15/21 0530 10/14/21 1231 HGB 10.2* 11.2* - Monitor CBC outpatient. DM1. Polyneuropathy. Hypoglycemic episode. [PLANT FACILITIES TECHNICIAN: insulin pump basal rate 1.1U/hr 8321-0691, 1.4U/hr 2091-5815; boluses for carbs (carb ratios varied based on time) and for correction.] * Hgb A1C 7.4 10/14/2021. * Hypoglycemic am 10/15 related to NPO status. Recent Labs Lab 10/16/21 0542 10/15/21 0530 10/14/21 1919 10/14/21 1231 GLC 102* 64* -- 100* A1C -- -- 7.4* -- - Continue PLANT FACILITIES TECHNICIAN regimen. CARLITOS. * Chronic and stable. - [...] encounter: 96.5 kg (212 lb 11.9 oz). COVID-19 testing. COVID-19 PCR Results COVID-19 PCR Results 08/15/20 11/04/20 11/04/20 03/10/21 04/17/21 04/28/21 05/11/21 06/30/21 10/14/21 1120 1120 COVID-19 Virus PCR to [facility] - Result Test received-See reflex to IDDL test SARS CoV2 (COVID-19) Virus RT-PCR COVID-19 Virus PCR to [facility] - Source Nasopharyngeal COVID-19 Virus by PCR (External Result) Negative SARS-CoV-2 Virus Specimen Source Nasopharyngeal SARS-CoV-2 PCR Result NEGATIVE SARS CoV2 PCR Negative Negative Negative Negative Negative Negative Comments are available for some flowsheets but are not being displayed. COVID-19 Antibody Results, Testing for Immunity COVID-19 Antibody Results, Testing for Immunity No data to display. Pending Results: Unresulted Labs Ordered in the Past 30 Days of this Admission No orders found from 09/14/2021 to 10/15/2021. Discharge Disposition: Discharged to home. Discharge Time: Less than 30 minutes. Condition and Physical on Discharge: See progress note on the same date as this discharge summary. [facility] Studies, Lab Findings and Procedures/Surgeries: Results for orders placed or performed during the hospital encounter of 10/14/21 X-ray Chest 2 vws* Narrative CHEST TWO VIEWS 10/16/2021 9:33 AM HISTORY: Implantable cardiac device placement, evaluate for pneumothorax. COMPARISON: June 24, 2021 FINDINGS: Cardiac leads noted that project over the cardiac silhouette. No pneumothorax. There are no acute infiltrates. The cardiac silhouette is stable. Pulmonary vasculature is unremarkable. Impression IMPRESSION: No acute disease. PATSY ORTIZ MD EP Device Narrative PROCEDURES PERFORMED: 1. Implantation of dual-chamber permanent pacemaker. 2. Cardiac fluoroscopy (1.2 minutes). 3. Conscious sedation, mild-moderate level. CLINICAL HISTORY: 70-year-old male with history of coronary artery disease and previous CABG who is admitted with symptomatic sinus/junctional bradycardia. The patient received a temporary pacemaker yesterday. Permanent there is no reversible cause and pacemaker implantation has been recommended. The risks and benefits of the procedure were discussed in detail; the patient expressed understanding and provided consent. PROCEDURE: The patient was brought to the cardiac electrophysiology laboratory at [facility] on 10/15/2021. I determined this patient to be an appropriate candidate for the planned sedation and procedure and have reassessed the patient immediately prior to sedation and procedure.The patient was in the fasting nonsedated state. Informed consent had been obtained. The patient was placed on the procedure table and the anterior chest was prepped and draped in the usual sterile fashion. We continuously monitored vital signs, oxygenation and level of sedation. Antibiotic prophylaxis was administered. Intravenous sedation was given to achieve patient comfort. Using a fluoroscopic guided technique the left subclavian vein was cannulated without difficulty. Two separate guidewires were introduced and retained. Under local anesthesia an incision was created in the left pectoral region. The incision was taken down to the pectoralis muscle and fascia and a pocket was created for the pacemaker generator. Using a peel-away introducer sheath the right ventricular lead was initially introduced. The tip of the lead was brought at the septal RVOT. Good sensing and pacing parameters were confirmed. 10 V pacing did not stimulate the diaphragm. The lead was secured using interrupted Ethibond sutures. Using another peel-away introducer sheath the right atrial lead was introduced. The tip of the lead was brought at the superior anterior RA. Good sensing and pacing parameters were confirmed. 10 V pacing did not stimulate the diaphragm. The lead was secured using interrupted Ethibond sutures. The device pocket was then irrigated with antibiotic solution. The leads were then connected to the pacemaker generator which was placed in the pocket. The wound was closed in 2 layers using 2.0 and 4.0 Vicryl. Steri-Strips, sterile gauze, and a pressure dressing were placed over the wound. The temporary pacing electrode was removed under fluoroscopy. The femoral venous sheath was removed as well. There were no apparent complications. The patient was brought back to the hospital room in stable condition. Estimated blood loss was 10-15 ml. RESULTS: A. Implanted leads: (i) RV lead: [employer] lead model 7841, serial [id number]. R-wave sensing 9.4 mV. Pacing threshold 0.4 V at 0.4 msec. Pacing impedance 755 ohms. (ii) RA lead: [employer] lead model 7840, serial [id number]. P-wave sensing 5.8 mV. Pacing threshold 0.4 V at 0.4 msec. Pacing impedance 550 ohms. B. Pulse generator: [employer] model L[address], serial [id number]. C. Programming: DDDR 60/130 bpm CONCLUSIONS: 1. Successful implantation of MRI-compatible dual-chamber permanent pacemaker. 2. No apparent in-lab complication. RACT LOADER documented in this encounter Discharge Instructions Discharge InstructionsMouna Mendes - 10/16/2021 10:51 AM CST .Discharge Instructions for Pacemaker Implantation You have had a procedure to insert a pacemaker. Once inside your body, this small electronic device helps keep your heart from beating too slowly. A pacemaker can???t fix existing heart problems. But it can help you feel better and have more energy. As you recover, follow all of the instructions you are given, including those below. Activity ?? Follow the instructions you are given about limiting your activity. ?? Do not raise LEFT arm above shoulder level for 3 weeks. This gives the device lead wires time to attach securely inside your heart. ?? Ask your doctor when you can expect to return to work. ?? You can still exercise. It???s good for your body and your heart. Talk with your doctor about an exercise plan. Other Precautions ?? Follow your doctor's directions carefully for wound care. You may remove the outer dressing in 3 - 4 days. Leave the steri-strips in place; these will be removed at your 1 week follow-up. Never put any creams, lotions, or products like peroxide on an incision unless your doctor tells you to. ?? You may shower once the outer dressing has been removed. ?? Before you receive any treatment, tell all health care providers (including your dentist) that you have a pacemaker. ?? You will be given an ID card that contains information about your pacemaker. Always carry this card with you. You can show this card if your pacemaker sets off a metal detector. You should also showit to avoid screening with a hand-held security wand. ?? Keep your cell phone away from your pacemaker. Don???t carry the phone in your shirt pocket, evenwhen it???s turned off. ?? Avoid strong magnets. Examples are those used in MRIs or in hand-held security wands. ?? Avoid strong electrical diana. Examples are those made by radio transmitting towers, ???ham?? radios, and heavy-duty electrical equipment. ?? Avoid leaning over the open kasper of a running car. A running engine creates an electrical field. Most household and yard appliances will not cause any problems. If you use any large power tools, such as an industrial arc trimmer, talk with your doctor. Follow-Up ?? Follow up in the device clinic as scheduled. You have an appointment scheduled for 10/28/21 at 1115. Your appointment is at [facility]. [address]. ?? 6 week device check is scheduled for 12/18/21 at 8:10am. At [facility] location. ?? Make regular follow-up appointments with your device clinic. They will check the pacemaker to make sure it???s working properly. When to Call Your Device Clinic [phone] Call your doctor immediately if you have any of the following: ?? Dizziness ?? Chest pain ?? Lack of energy ?? Fainting spells ?? Twitching chest muscles ?? Rapid pulse or pounding heartbeat ?? Shortness of breath ?? Pain around your pacemaker ?? Fever above 100.4??F (38??C) or other signs of infection (redness, swelling, drainage, or warmth at the incision site) ?? Hiccups that won???t stop ?? [phone] [facility]. [address] [place] [address], [place] [address]. All rights reserved. This information is not intended as a substitute for professional medical care. Always follow your healthcare professional's instructions. [facility] in [place]: [phone] Device Clinic (Thursday to Joey, 8am-4pm): [phone] *The device clinic is closed on weekends and holidays. Any calls received during this time will be answered on the next day. For any urgent questions after hours, please call the main clinic number and you will be put incontact with the customer service security officer court operations clerk. RACT LOADER AttachmentsThe following attachments cannot be sent through Care Everywhere.(s) Home Care after a Pacemaker or ICD Implant (Guamanian)PACEMAKERPACEMAKER DISCHARGE INSTRUCTIONSPacemaker Failure (Guamanian)documented in this encounter Medications at Time of Discharge Medication Sig Dispensed Refills Start Date End Date acetaminophen (TYLENOL) Take 650 mg by mouth 0 325 MG tablet At Bedtime acetaminophen (TYLENOL) Take 2 tablets (650 40 tablet 0 325 MG mg) by mouth every 4 tabletIndications: S/P hours as needed for CABG (coronary artery mild pain bypass graft) aspirin (ASA) 325 MG Take 325 mg by mouth 0 tablet daily carvedilol (COREG) 12.5 Take 1 tablet (12.5 60 tablet 3 04/2022 MG tabletIndications: mg) by mouth 2 times Essential hypertension daily (with meals) and 2029 clotrimazole (LOTRIMIN) Instill 5 drops into 0 1 % external solution left ear two times daily, lay with ear up for at least 10 minutes after use. Use a cotton ball with vaseline when showering to keep dry. Continuous Blood Gluc 0 Sensor (DEXCOM G6 SENSOR) MISC Copper Gluconate Take by mouth daily 0 (COPPER CAPS) 2 MG CAPS cyanocobalamin (VITAMIN Take 1,000 mcg by 0 B-12) 1000 MCG tablet mouth daily Ferrous Sulfate 324 (65 Take by mouth every 0 Fe) MG TBEC morning Rx out, now getting it OTC gabapentin (NEURONTIN) Take 1 capsule (300 0 04/11 300 MG mg) by mouth 2 times capsuleIndications: S/P daily CABG (coronary artery bypass graft) glucagon 1 MG kit 1 mg once as needed 0 for low blood sugar HEMP OIL OR EXTRACT OR Apply 1 Application 0 OTHER CBD CANNABINOID, topically 2 times NOT MEDICAL CANNABIS, daily as needed (Arthritis on right knee and wrist) Topical cream hydrALAZINE Take 25 mg by mouth 0 (APRESOLINE) 25 MG daily At 2030 if SBP tablet >170. Was previously taking as needed but has recently been taking scheduled. hydrALAZINE Take 1 tablet (25 mg) 270 tablet 3 10/10/2021 (APRESOLINE) 25 MG by mouth 3 times tabletIndications: daily Take 1 tablet Essential hypertension 25mg three times daily in addition 1 tablet 50mg three times daily, for a total of 75mg three times daily hydrALAZINE Take 1 tablet (50 mg) 270 tablet 3 10/10/2021 (APRESOLINE) 50 MG by mouth 3 times tabletIndications: daily Take 1 tablet Essential hypertension 25mg three times daily in addition 1 tablet 50mg three times daily, for a total of 75mg three times daily insulin lispro by Device route See 0 (HUMALOG) 100 UNIT/ML Admin Instructions injection INSULIN PUMP - BASAL RATES and times: 0 OUTPATIENT 0000 - 0500 : 1.1 units/hour, 0500 [...] 35 mg/dL BLOOD GLUCOSE TARGET: 110 mg/dL melatonin 3 MG CAPS Take 10 mg by mouth 0 At Bedtime ONE TOUCH ULTRA TEST as directed 100 0 06/22/2006 STRPIndications: Type II or unspecified type diabetes mellitus without mention of complication, not stated as uncontrolled Polyethylene Glycol [address] Place 1 drop into 0 (BLINK TEARS OP) both eyes daily as needed sertraline (ZOLOFT) 50 Take 50 mg by mouth 0 MG tablet daily Sleep doctor recommends taking at bedtime SYRINGE B-D MICRO FINE as directed 100 0 09/18/2004 1/2 CC SYRINGES Turmeric 500 MG CAPS Take 1 capsule by 0 mouth every morning amLODIPine (NORVASC) 10 Take 10 mg by mouth 0 12/09/2021 MG tabletIndications: At Bedtime Essential hypertension, S/P CABG (coronary artery bypass graft) isosorbide dinitrate Take 1 tablet (30 mg) 270 tablet 3 10/202110/29/2021 (ISORDIL) 30 MG by mouth 3 times tabletIndications: daily Essential hypertension isosorbide mononitrate Take 60 mg by mouth 0 11/25/2021 (IMDUR) 60 MG 24 hr daily 1630 tablet lisinopril (ZESTRIL) 10 Take 1 tablet (10 mg) 90 tablet 1 1 09/17/2020 03/28/2022 MG tabletIndications: by mouth daily At S/P CABG (coronary bedtime artery bypass graft) rosuvastatin (CRESTOR) Take 1 tablet (40 mg) 90 tablet 3 10/17/2021 40 MG by mouth every tabletIndications: evening Coronary artery disease involving chinik coronary artery of chinik heart without angina pectoris, Hyperlipidemia LDL goal <70, S/P coronary artery stent placement documented as of this encounter Progress Notes Ebenezer Luu MD - 10/16/2021 11:02 AM CST [facility] Internal Medicine Hospitalist Progress Note 10/16/2021 I evaluated patient on the above date. Ebenezer Luu Jr., MD [phone] (p) Text Page Vocera Assessment & Plan New actions/orders today (10/16/2021) are underlined. D/C home: see discharge summary for diagnoses. Disposition Plan Expected discharge: Today 10/16 recommended to prior living arrangement. Entered: Ebenezer Luu MD 10/16/2021, 11:02 AM Interval History Doing well. Ready to go home. -Data reviewed today: I reviewed all new labs and imaging over the last 24 hours. I personally reviewed no images or EKG's today. Physical Exam , Blood pressure (!) 190/89, pulse 83, temperature 98.4 ??F (36.9 ??C), temperature source Axillary, resp. rate 22, weight 96.5 kg (212 lb 11.9 oz), SpO2 97 %. Vitals: 10/15/21 0500 Weight: 96.5 kg (212 lb 11.9 oz) Vital Signs with Ranges Temp: [98 ??F (36.7 ??C)-98.7 ??F (37.1 ??C)] 98.4 ??F (36.9 ??C) Pulse: [61-90] 83 Resp: [12-] 22 BP: (146-190)/(72-90) 190/89 SpO2: [96 %-100 %] 97 % Patient Vitals for the past 24 hrs: BP Temp Temp src Pulse Resp SpO2 10/16/21 0747 (!) 190/89 98.4 ??F (36.9 ??C) Axillary 83 22 97 % 10/16/21 0600 (!) 152/74 -- -- 78 15 -- 10/16/21 0400 (!) 150/77 -- -- 73 16 -- 10/16/21 0300 -- -- -- 75 16 -- 10/16/21 0200 (!) 157/76 -- -- 77 18 96 % 10/16/21 0100 -- -- -- 73 18 -- 10/16/21 0000 (!) 158/80 -- -- 84 23 -- 10/15/21 2257 -- -- -- 88 16 99 % 10/15/21 2200 (!) 166/74 -- -- 86 20 100 % 10/15/21 2110 (!) 161/78 -- -- 90 12 -- 10/15/212038 -- 98.4 ??F (36.9 ??C) Oral -- -- 99 % 10/15/211999 (!) 181/81 -- -- 78 -- 100 % 10/15/21 195 -- 98 ??F (36.7 ??C) Axillary -- -- -- 10/15/21 1800 (!) 169/90 -- -- 69 14 99 % 10/15/21 1555 (!) 175/88 98.7 ??F (37.1 ??C) Oral 72 25 98 % 10/15/21 1307 -- -- -- -- 15 -- 10/15/21 1257 -- -- -- -- 14 -- 10/15/21 1231 -- -- -- -- 20 -- 10/15/21 1200 (!) 146/72 98.6 ??F (37 ??C) Oral 61 20 99 % I/O's Last 24 hours I/O last 3 completed shifts: In: 850 [P.O.:100; I.V.:750] Out: 375 [Urine:375] Constitutional: Awake, alert, pleasant. Respiratory: Diminished in bases. No crackles or wheezes. Cardiovascular: RRR, no m/r/g. GI: Skin/Integumen: Other: Data Recent Labs Lab 10/16/21 0542 10/15/21 0530 10/14/21 1922 10/14/21 1231 WBC -- 9.0 -- 8.3 HGB -- 10.2* -- 11.2* MCV -- 86 -- 88 PLT -- 185 -- 187 NA 144 141 -- 138 POTASSIUM 4.7 4.8 5.5* 5.4* CHLORIDE 114* 115* -- 110* CO2 25 23 -- 24 BUN 39* 45* -- 50* CR 1.22 1.41* -- 1.37* ANIONGAP 5 3 -- 4 RICHIE 9.2 8.6 -- 9.0 GLC 102* 64* -- 100* TROPONINIS -- -- -- 27 Recent Labs Lab Test 10/16/21 0542 10/15/21 0530 10/14/21 1231 09/10/21 1352 08/05/21 1153 01/02/21 1527 01/06/20 2252 04/09/15 1428 04/09/15 1150 04/09/15 0700 01/03/15 1345 GLC 102* 64* 100* 85 100* < > -- < > -- < > -- BGM -- -- -- -- -- -- 213* -- 190* -- 152* < > = values in this interval not displayed. Recent Labs Lab 10/15/21 0530 10/14/21 1231 WBC 9.0 8.3 Recent Results (from the past 24 hour(s)) EP Device Narrative PROCEDURES PERFORMED: 1. Implantation of dual-chamber permanent pacemaker. 2. Cardiac fluoroscopy (1.2 minutes). 3. Conscious sedation, mild-moderate level. CLINICAL HISTORY: 70-year-old male with history of coronary artery disease and previous CABG who is admitted with symptomatic sinus/junctional bradycardia. The patient received a temporary pacemaker yesterday. Permanent there is no reversible cause and pacemaker implantation has been recommended. The risks and benefits of the procedure were discussed in detail; the patient expressed understanding and provided consent. PROCEDURE: The patient was brought to the cardiac electrophysiology laboratory at [facility] on 10/15/2021. I determined this patient to be an appropriate candidate for the planned sedation and procedure and have reassessed the patient immediately prior to sedation and procedure.The patient was in the fasting nonsedated state. Informed consent had been obtained. The patient was placed on the procedure table and the anterior chest was prepped and draped in the usual sterile fashion. We continuously monitored vital signs, oxygenation and level of sedation. Antibiotic prophylaxis was administered. Intravenous sedation was given to achieve patient comfort. Using a fluoroscopic guided technique the left subclavian vein was cannulated without difficulty. Two separate guidewires were introduced and retained. Under local anesthesia an incision was created in the left pectoral region. The incision was taken down to the pectoralis muscle and fascia and a pocket was created for the pacemaker generator. Using a peel-away introducer sheath the right ventricular lead was initially introduced. The tip of the lead was brought at the septal RVOT. Good sensing and pacing parameters were confirmed. 10 V pacing did not stimulate the diaphragm. The lead was secured using interrupted Ethibond sutures. Using another peel-away introducer sheath the right atrial lead was introduced. The tip of the lead was brought at the superior anterior RA. Good sensing and pacing parameters were confirmed. 10 V pacing did not stimulate the diaphragm. The lead was secured using interrupted Ethibond sutures. The device pocket was then irrigated with antibiotic solution. The leads were then connected to the pacemaker generator which was placed in the pocket. The wound was closed in 2 layers using 2.0 and 4.0 Vicryl. Steri-Strips, sterile gauze, and a pressure dressing were placed over the wound. The temporary pacing electrode was removed under fluoroscopy. The femoral venous sheath was removed as well. There were no apparent complications. The patient was brought back to the hospital room in stable condition. Estimated blood loss was 10-15 ml. RESULTS: A. Implanted leads: (i) RV lead: [employer] lead model 7841, serial [id number]. R-wave sensing 9.4 mV. Pacing threshold 0.4 V at 0.4 msec. Pacing impedance 755 ohms. (ii) RA lead: [employer] lead model 7840, serial [id number]. P-wave sensing 5.8 mV. Pacing threshold 0.4 V at 0.4 msec. Pacing impedance 550 ohms. B. Pulse generator: [employer] model L[address], serial [id number]. C. Programming: DDDR 60/130 bpm CONCLUSIONS: 1. Successful implantation of MRI-compatible dual-chamber permanent pacemaker. 2. No apparent in-lab complication. X-ray Chest 2 vws* Narrative CHEST TWO VIEWS 10/16/2021 9:33 AM HISTORY: Implantable cardiac device placement, evaluate for pneumothorax. COMPARISON: June 24, 2021 FINDINGS: Cardiac leads noted that project over the cardiac silhouette. No pneumothorax. There are no acute infiltrates. The cardiac silhouette is stable. Pulmonary vasculature is unremarkable. Impression IMPRESSION: No acute disease. PATSY ORTIZ MD Medications All medications were reviewed. ??? insulin basal rate for inpatient ambulatory pump ??? - MEDICATION INSTRUCTIONS - ??? amLODIPine 10 mg Oral At Bedtime ??? aspirin 325 mg Oral Daily ??? carvedilol 12.5 mg Oral BID w/meals ??? clotrimazole Topical BID ??? gabapentin 300 mg Oral BID ??? hydrALAZINE 25 mg Oral TID ??? hydrALAZINE 50 mg Oral TID ? ? insulin bolus from AMBULATORY PUMP Subcutaneous 4x Daily AC & HS ??? insulin bolus from AMBULATORY PUMP Subcutaneous TID AC ??? insulin lispro Device See Admin Instructions ??? isosorbide mononitrate 60 mg Oral Daily ??? lisinopril 10 mg Oral At Bedtime ??? rosuvastatin 40 mg Oral QPM ??? sertraline 50 mg Oral At Bedtime ??? sodium chloride (PF) 3 mL Intracatheter Q8H acetaminophen, acetaminophen, alum & mag hydroxide-simethicone, bisacodyl, glucose OR dextrose OR glucagon, HOLD MEDICATION, HOLD MEDICATION, HOLD MEDICATION, hydrALAZINE, HYDROmorphone, lidocaine 4%, lidocaine (buffered or not buffered), - MEDICATION INSTRUCTIONS -, melatonin, naloxone OR naloxone OR naloxone OR naloxone, nitroGLYcerin, ondansetron OR ondansetron, oxyCODONE, oxyCODONE-acetaminophen, polyethylene glycol, senna-docusate OR senna-docusate, sodium chloride (PF) RACT LOADER Mouna Mendes - 10/16/2021 10:51 AM CST Device Discharge Dressing: Clean, dry, and intact. Pressure dressing removed. Chest XR reviewed: Yes Pneumo present?: No Lead Measurements per Device Rep: WNL Education Provided: Avoid raising left arm above the level of the shoulder for 3 weeks. Do not shower until outer occlusive dressing has been removed. Remove outer dressing in 3 - 4 days. Leave steri-strips in place, these will be removed at the 1 week check. Call Device Clinic with increased swelling, drainage, or fever > 101 degrees. Follow-up with the Device Clinic as scheduled on 10/28/21 at 11:15 at [facility] location. 6 week follow up appointment has also been scheduled for 12/18/21 at 8:10am at [place] location. Carolyn Self APRN CNP - 10/16/2021 8:19 AM CST EP Progress Note Assessment and Plan: Nikita Anderson is a 70-year-old male with history of coronary artery disease and previous CABG, HTN, HL, DM, CKD, CARLITOS who was admitted with symptomatic sinus/junctional bradycardia. The patient received a temporary pacemaker at [facility] and was transferred to [facility]. EP was consulted to assist with his care. Previous studies: -Echo (05/2021): Mild LV dysfunction. EF of 46%. Regional wall motion abnormalities. 1. Sinus node dysfunction with symptomatic bradycardia Heart rate improved after discontinuation of medication, however, patient has significant hypertension and underlying skin of cardiomyopathy. Pacemaker implantation was recommended. S/P implantation of MRI compatible dual chamber pacemaker (BS) on 10/15 Temporary pacer removed from right groin on 10/15 CXR completed and no apparent pneumothorax with good lead placement per my read. Interrogation completed and stable sensing and pacing [facility] Device RN education will be completed before discharge home 2. HTN Difficult to control in the past Carvedilol was restarted this am, but at 12.5 mg bid and can be titrated as needed PLANT FACILITIES TECHNICIAN amlodipine 10 mg every day, hydralazine 75 mg tid,Imdur 60 mg every day, lisinopril 10 mg every day. Hx of hyperkalemia which might be why lisinopril Will hold off on restarting clonidine 3. CAD No c/o chest pain S/p 3 v CABG (DOUGLASS/LAD, SVG/PRDA ,SVG/OM 04/19/2021 Hx of NSVT on event monitor led to stress test 06/2021 showing small area of mild ischemia in basal anterior segments of LV. This was new & echo 06/2021 showed drop in EF from 55-60% preop 12/2020 ---> 46% 05/2021. Underwent cath 07/03/2021 showed patent DOUGLASS/LAD and patent SVG/PRDA. SVG to OM stump was occluded. PLANT FACILITIES TECHNICIAN on ASA, Imdur 60 (had been changed to isordil 30 mg TID at OV 10/10 but not picked up d/t cost), lisinopril 10 and Crestor 40. Last LDL 49 mg/dL 05/2021. Coreg restarted today at 12.5 mg BID Device RN to arrange 3 month SERAFIN visit. Pt will need to have a b/p check in 1-2 weeks Pt is established pt of and Fadi Gomez ADVERTISING MATERIAL DISTRIBUTOR in [place]. Order placed to see Fadi for HTN/CORE in 2 weeks. EP signing off Carolyn Bright CNP Interval History: Pt feeling well this morning and offers no concerns at this time. Pressures have been elevated and BB was restarted this am. Would recommend increasing BB as needed for HTN before restarting clonidine.Tele sinus Medications: ??? amLODIPine 10 mg Oral At Bedtime ??? aspirin 325 mg Oral Daily ??? clotrimazole Topical BID ??? gabapentin 300 mg Oral BID ??? hydrALAZINE 25 mg Oral TID ??? hydrALAZINE 50 mg Oral TID ? ? insulin bolus from AMBULATORY PUMP Subcutaneous 4x Daily AC & HS ??? insulin bolus from AMBULATORY PUMP Subcutaneous TID AC ??? insulin lispro Device See Admin Instructions ??? isosorbide mononitrate 60 mg Oral Daily ??? lisinopril 10 mg Oral At Bedtime ??? rosuvastatin 40 mg Oral QPM ??? sertraline 50 mg Oral At Bedtime ??? sodium chloride (PF) 3 mL Intracatheter Q8H Review of Systems: If done, described below The Review of Systems is negative other than noted in the HPI Physical Exam: Blood pressure (!) 190/89, pulse 83, temperature 98.4 ??F (36.9 ??C), temperature source Axillary, resp. rate 22, weight 96.5 kg (212 lb 11.9 oz), SpO2 97 %. Vital Sign Ranges Temperature Temp Av.4 ??F (36.9 ??C) Min: 98 ??F (36.7 ??C) Max: 98.7 ??F (37.1 ??C) Blood pressure Systolic (24hrs), Av , Min:119 , Max:190 Diastolic (24hrs), Av, Min:59, Max:90 Pulse Pulse Av.9 Min: 59 Max: 90 Respirations Resp Av.5 Min: 11 Max: 25 Pulse oximetry SpO2 Av.6 % Min: 96 % Max: 100 % Intake/Output Summary (Last 24 hours) at 10/16/2021 0819 Last data filed at 10/15/2021 1400 Gross per 24 hour Intake 850 ml Output 375 ml Net 475 ml Constitutional: in no apparent distress Chest: Pressure dressing on. No hematoma or erythema noted. Pacer dressing dry and intact Lungs: symmetric, clear to auscultation Cardiovascular: regular rate and rhythm, normal S1 and S2 and no murmur noted Extremities and Back: No edema Data: Lab Results Component Value Date WBC 9.0 10/15/2021 HGB 10.2 (L) 10/15/2021 HCT 31.7 (L) 10/15/2021 PLT 185 10/15/2021 NA 144 10/16/2021 POTASSIUM 4.7 10/16/2021 CHLORIDE 114 (H) 10/16/2021 CO2 25 10/16/2021 BUN 39 (H) 10/16/2021 CR 1.22 10/16/2021 GLC 102 (H) 10/16/2021 DD 2.39 (H) 04/28/2021 TROPONIN 0.050 (H) 04/28/2021 AST 22 04/29/2021 ALT 22 06/06/2021 ALKPHOS 60 04/29/2021 BILITOTAL 0.5 04/29/2021 INR 1.07 07/03/2021 RACT LOADER Associated attestation - Darrian Berman MD - 10/16/2021 10:28 AM CONTRACT LOADER ADDENDUM Patient seen and examined. Case discussed with PA/ADVERTISING MATERIAL DISTRIBUTOR. Agree with plan above. In summary, 70-yo M with a Hx of HTN, HL, CARLITOS, DM, CKD, CAD (previous PCI and CABG; DOUGLASS to LAD, rSVG to PDA, rSVG to OM2), who p/w with dizziness and was found to have symptomatic bradycardia associated with sinus node dysfunction. He underwent PPM plantation yesterday. No events overnight.Surgical wound is well approximated. No hematoma noticed. Device interrogation showed good lead parameters. Chest Xray confirmed good lead position and ruled out pneumothorax. Previous studies: -Echo (05/2021): Mild LV dysfunction. EF of 46%. Regional wall motion abnormalities. Plan: Device care. Follow up in device clinic in 7-10 days. HTN. Continue therapy with carvedilol, amlodipine, hydralazine 75 mg tid, Imdur and lisinopril. Okayto resume clonidine as needed to control BP We will sign off. Physical Exam: Vitals: BP (!) 190/89 (BP Location: Right arm) Pulse 83 Temp 98.4 ??F (36.9 ??C) (Axillary) Resp 22 Wt 96.5 kg (212 lb 11.9 oz) SpO2 97% BMI 29.67 kg/m?? Intake/Output Summary (Last 24 hours) at 10/16/2021 1023 Last data filed at 10/15/2021 1400 Gross per 24 hour Intake 750 ml Output 375 ml Net 375 ml Constitutional: AAO x3. Pt is in NAD. HEAD: Normocephalic. SKIN: Skin normal color, texture and turgor with no lesions or eruptions. Neck: Supple, normal JVP, no carotid bruits. Eyes: PERRL, EOMI. Chest: CTAB. Cardiac: RRR, normal S1 and S2. No murmurs rubs or gallop. Abdomen: Normal BS. Soft, non-tender and non-distended. No rebound or guarding. Extremities: Pedious pulses palpable B/L. No LE edema noticed. Neurological: Strength and sensation symmetric and grossly intact throughout. MD Carlos Christopher Demosthenes Nikolaos, MD - 10/15/2021 1:21 PM CST Dictated. Successful dual-chamber pacemaker implantation ([employer]). Programmed DDDR 60/130 ppm. Temporary pacemaker was removed. No apparent complication. EBL 10-15 mL. Plan: -Chest x-ray and device interrogation in the a.m. -Routine post pacemaker precautions RACT LOADER Ebenezer Luu MD - 10/15/2021 11:57 AM CST [facility] Internal Medicine Hospitalist Progress Note 10/15/2021 I evaluated patient on the above date. Ebenezer Luu Jr., MD [phone] (p) Text Page Vocera Assessment & Plan New actions/orders today (10/15/2021) are underlined. Nikita Anderson is a 70 year old male admitted on 10/14/2021 with past medical history significant for obesity, DM1 with neuropathy, HTN, CAD s/p CABG (04/2021), CHF, CKD and h/o prostate cancer, who initially presented to [facility] 10/14/2021 with dizziness and found to be bradycardic with junctional rhythm. Temporary pacemaker placed and transferred to [facility] 10/14/2021 for management. ?? Symptomatic bradycardia with junctional rhythm. 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 On initial evaluation at [facility], ECG initially showed marked sinus bradycardia and repeat ECG showed junctional rhythm. Trop negative. Evaluated by Cardiology and underwent temporary pacemaker placement 10/14 and subsequently transferred to [facility]. * PLANT FACILITIES TECHNICIAN carvedilol and clonidine held on admit. * 10/15: HR's improved after holding carvedilol and clonidine, but PPM still recommended as will benefit from BB in the future. - Plan PPM. - Continue to hold PLANT FACILITIES TECHNICIAN carvedilol and clonidine. - Appreciate Cardiology help. Hyperkalemia * Potassium level of 5.4 on admit 10/14. * Potassium normalized 10/15. Recent Labs Lab 10/15/21 0530 10/14/21192110/14/21 1231 POTASSIUM 4.8 5.5* 5.4* MAG -- -- 2.3 - Monitor potassium. ?? CAD s/p CABG (04/2021). CHF (biventricular systolic, HFrEF). Hypertension (benign essential). [PLANT FACILITIES TECHNICIAN: amlodipine 10 mg daily; clonidine 0.2 mg BID; carvedilol 6.25 mg BID; hydralazine 75 mg TID; ISMN 60 mg daily; lisinopril 10 mg daily.] * Echo 05/2021 showed LVEF 46% with WMA's; RV moderate decreased systolic function. * PLANT FACILITIES TECHNICIAN clonidine and carvedilol held on admit. - Continue ASA, rosuvastatin, PRN NTG. - Continue amlodipine, hydralazine, ISMN, lisinopril. - Continue to hold clonidine and carvedilol. - Continue PRN IV hydralazine. - Monitor i/o's, daily wts. DM1. Polyneuropathy. Hypoglycemic episode. [PLANT FACILITIES TECHNICIAN: insulin pump basal rate 1.1U/hr 0051-8000, 1.4U/hr 2133-9625; boluses for carbs (carb ratios varied based on time) and for correction.] * Hgb A1C 7.4 10/14/2021. * Hypoglycemic am 10/15 related to NPO status. Recent Labs Lab 10/15/21 0530 10/14/21191810/14/21 1231 GLC 64* -- 100* A1C -- 7.4* -- - Continue insulin pump - adjust basal rate given NPO. - Continue bolus dosing per pump programming. - Continue gabapentin 300 mg BID. - Continue PRN hypoglycemia protocol. CARLITOS. * Chronic and stable. - Continue CPAP. CKD stage 3 * Baseline creatinine between 1.20-1.40. * Cr 1.37 on admit 10/14. Recent Labs Lab 10/15/21 0530 10/14/21 1231 CR 1.41* 1.37* - Monitor BMP. - Avoid nephrotoxic medications. Depression/anxiety. - Continue [...] Significant Risk Factors Present on Admission # Platelet Defect: home medication list includes an antiplatelet medication # Overweight: Estimated body mass index is 29.67 kg/m?? as calculated from the following: Height as of an earlier encounter on 10/14/21: 1.803 m (5' 11). Weight as of this encounter: 96.5 kg (212 lb 11.9 oz). COVID-19 testing. COVID-19 PCR Results COVID-19 PCR Results 08/15/20 11/04/20 11/04/20 03/10/21 04/17/21 04/28/21 05/11/21 06/30/21 10/14/21 1120 1120 COVID-19 Virus PCR to [facility] - Result Test received-See reflex to IDDL test SARS CoV2 (COVID-19) Virus RT-PCR COVID-19 Virus PCR to [facility] - Source Nasopharyngeal COVID-19 Virus by PCR (External Result) Negative SARS-CoV-2 Virus Specimen Source Nasopharyngeal SARS-CoV-2 PCR Result NEGATIVE SARS CoV2 PCR Negative Negative Negative Negative Negative Negative Comments are available for some flowsheets but are not being displayed. COVID-19 Antibody Results, Testing for Immunity COVID-19 Antibody Results, Testing for Immunity No data to display. Diet: NPO per Anesthesia Guidelines for Procedure/Surgery Except for: Meds NPO for Medical/Clinical Reasons Except for: Meds Prophylaxis: PCD's, ambulation. Carr Catheter: Not present Central Lines: None Code Status: Full Code Disposition Plan Expected discharge: Possibly tomorrow 10/16 recommended to prior living arrangement pending above. Entered: Ebenezer Luu MD 10/15/2021, 11:57 AM Interval History Seen briefly prior to being taken to procedure. -Data reviewed today: I reviewed all new labs and imaging over the last 24 hours. I personally reviewed no images or EKG's today. Physical Exam , Blood pressure (!) 148/68, pulse 59, temperature 98.3 ??F (36.8 ??C), temperature source Axillary, resp. rate 11, weight 96.5 kg (212 lb 11.9 oz), SpO2 99 %. Vitals: 10/15/21 0500 Weight: 96.5 kg (212 lb 11.9 oz) Vital Signs with Ranges Temp: [97.6 ??F (36.4 ??C)-98.3 ??F (36.8 ??C)] 98.3 ??F (36.8 ??C) Pulse: [26-75] 59 Resp: [0-20] 11 BP: (94-185)/(44-77) 148/68 SpO2: [98 %-100 %] 99 % Patient Vitals for the past 24 hrs: BP Temp Temp src Pulse Resp SpO2 Weight 10/15/21 1100 (!) 148/68 -- -- 59 11 -- -- 10/15/21 1000 (!) 144/65 -- -- 63 11 -- -- 10/15/21 0900 128/59 -- -- 62 13 99 % -- 10/15/21 0825 119/60 98.3 ??F (36.8 ??C) Axillary 60 11 99 % -- 10/15/21 0800 125/60 -- -- 60 12 -- -- 10/15/21 0700 94/54 -- -- 60 9 -- -- 10/15/21 0500 -- -- -- -- -- -- 96.5 kg (212 lb 11.9 oz) 10/15/21 0400 122/77 -- -- 62 16 -- -- 10/15/21 0300 97/44 -- -- 60 16 -- -- 10/15/21 0200 108/50 -- -- 61 (!) 4 -- -- 10/15/21 0100 113/56 -- -- 61 9 -- -- 10/15/21 0000 (!) 167/71 -- -- 65 10 -- -- 10/14/21 2300 (!) 164/70 -- -- 65 13 -- -- 10/14/21 2200 (!) 162/58 -- -- 66 14 -- -- 10/14/21 2133 (!) 151/70 -- -- -- -- -- -- 10/14/21 2100 (!) 151/70 -- -- 67 12 100 % -- 10/14/21 1930 (!) 185/70 -- -- 75 11 -- -- 10/14/21 1900 (!) 151/76 -- -- 59 15 99 % -- 10/14/21 1833 (!) 158/70 -- -- 60 12 100 % -- 10/14/21 1827 (!) 176/75 97.6 ??F (36.4 ??C) Oral 62 16 100 % -- I/O's Last 24 hours I/O last 3 completed shifts: In: - Out: 1525 [Urine:1525] Constitutional: Awake, alert, pleasant. Respiratory: Cardiovascular: GI: Skin/Integumen: Other: Data Recent Labs Lab 10/15/21 0530 10/14/21 1922 10/14/21 1231 WBC 9.0 -- 8.3 HGB 10.2* -- 11.2* MCV 86 -- 88 PLT 185 -- 187 NA 141 -- 138 POTASSIUM 4.8 5.5* 5.4* CHLORIDE 115* -- 110* CO2 23 -- 24 BUN 45* -- 50* CR 1.41* -- 1.37* ANIONGAP 3 -- 4 RICHIE 8.6 -- 9.0 GLC 64* -- 100* TROPONINIS -- -- 27 Recent Labs Lab Test 10/15/21 0530 10/14/21 1231 09/10/21 1352 08/05/21 1153 07/03/21 0902 01/02/21 1527 01/06/20 2252 04/09/15 1428 04/09/15 1150 04/09/15 0700 01/03/15 1345 GLC 64* 100* 85 100* 157* < > -- < > -- < > -- BGM -- -- -- -- -- -- 213* -- 190* -- 152* < > = values in this interval not displayed. Recent Labs Lab 10/15/21 0530 10/14/21 1231 WBC 9.0 8.3 Recent Results (from the past 24 hour(s)) Cardiac Catheterization Narrative 1. Successful temporary pacemaker placement via RFV. Capture threshold 0.2 mA. 2. Initial PPM settings: 60 bpm, 10 mA Medications All medications were reviewed. ??? insulin basal rate for inpatient ambulatory pump ??? - MEDICATION INSTRUCTIONS - ??? - MEDICATION INSTRUCTIONS - ??? sodium chloride 150 mL/hr at 10/15/21 0842 ??? amLODIPine 10 mg Oral At Bedtime ??? aspirin 325 mg Oral Daily ??? clotrimazole Topical BID ??? gabapentin 300 mg Oral BID ??? hydrALAZINE 25 mg Oral TID ??? hydrALAZINE 50 mg Oral TID ? ? insulin bolus from AMBULATORY PUMP Subcutaneous 4x Daily AC & HS ??? insulin bolus from AMBULATORY PUMP Subcutaneous TID AC ??? insulin lispro Device See Admin Instructions ??? isosorbide mononitrate 60 mg Oral Daily ??? lisinopril 10 mg Oral At Bedtime ??? rosuvastatin 40 mg Oral QPM ??? sertraline 50 mg Oral At Bedtime ??? sodium chloride (PF) 3 mL Intracatheter Q8H ??? sodium chloride (PF) 3 mL Intracatheter Q8H ??? sodium chloride (PF) 3 mL Intracatheter Q8H acetaminophen, acetaminophen, alum & mag hydroxide-simethicone, bisacodyl, glucose OR dextrose OR glucagon, hydrALAZINE, HYDROmorphone, lidocaine 4%, lidocaine 4%, lidocaine 4%, lidocaine (buffered or not buffered), lidocaine (buffered or not buffered), lidocaine (buffered or not buffered), - MEDICATION INSTRUCTIONS -, melatonin, naloxone OR naloxone OR naloxone OR naloxone, nitroGLYcerin, ondansetron OR ondansetron, oxyCODONE, - MEDICATION INSTRUCTIONS -, polyethylene glycol, senna-docusate OR senna-docusate, sodium chloride (PF), sodium chloride (PF), sodium chloride (PF), sodium chloride (PF) RACT LOADER documented in this encounter H&P Notes Luis Felipe Allan PA-C - 10/14/2021 7:20 PM CST [facility] History and Physical - Hospitalist Service Date of Admission: 10/14/2021 PRIMARY CARE PROVIDER: Anatoliy Jackson Assessment & Plan Nikita Anderson is a 70 year old male admitted on 10/14/2021. Past medical history significant for CAD s/p CABG (04/2021), Post-CABG atrial tachycardia versus atrial fib, Mild ischemic cardiomyopathy, HTN, HLP, Obesity, CARLITOS, DM1, Polyneuropathy, CKD, CARMEN, Prostatecancer who was directly admitted to [facility] due to symptomatic bradycardia/junctional rhythm. Patient presented to [facility] ED due to dizziness. He has been having recurrent lightheadedness for the last few days. He thought this was due to recent increase in his clonidine medication. The day prior to admission he went for a walk (0.75 miles) and develops shortness of breath, chest tightness and lightheadedness. When he checked his blood pressure and heart rate he was found to have a pulsein the 30's. Work-up in the ED included a BMP that revealed a potassium of 5.4, chloride of 110, BUN of 50, creatinine of 1.37, GFR of 55 and glucose of 100 otherwise within normal limits. Magnesium and HS TroponinI were within normal range. CBC with differential revealed a HGB of 11.2, Hematocrit of 35.1, RBC count of 4.01 otherwise within normal limits. EKG was completed twice and the first revealed marked sinus bradycardia and the second showed junctional bradycardia. Patient was evaluated by Cardiology and had temporary pacemaker placed. Symptomatic bradycardia/junctional rhythm - Cardiology consult requested. - Telemetry. - Hold PLANT FACILITIES TECHNICIAN Coreg 6.25 mg BID and PLANT FACILITIES TECHNICIAN clonidine 0.2 mg BID. - NPO at midnight. Hyperkalemia Potassium level of 5.4. - Repeat potassium now. CAD s/p CABG (04/2021) HTN HLP - Resumed on PLANT FACILITIES TECHNICIAN ASA 325 mg/d. - Resumed on PLANT FACILITIES TECHNICIAN Norvasc 10 mg at bedtime, Hydralazine 75 mg TID, Imdur 60 mg/d, lisinopril 10 mg atbedtime. Hold parameters in place. - Hold PLANT FACILITIES TECHNICIAN Coreg 6.25 mg BID and PLANT FACILITIES TECHNICIAN clonidine 0.2 mg BID. - Resumed on PLANT FACILITIES TECHNICIAN Crestor 40 mg/d. - PRN IV hydralazine available. Post-CABG atrial tachycardia versus atrial fib Per EMR, no recurrence on 30 day event monitor. - Telemetry. Mild ischemic cardiomyopathy Last ECHO (05/2021) with EF of 46%. - Not currently on diuretics. - Resumed cardiac medications as above. - Daily weights. - I's & O's. Obesity with associated CARLITOS BMI of 30.13. Patient is compliant with CPAP. Increase in all-cause morbidity and mortality. - Encourage weight loss. - Follow up with PCP regarding ongoing management. - Continue CPAP with home settings. DM1 Polyneuropathy Patient has an ambulatory humalog insulin pump. - Glucose checks every 4 hours. - Continue with insulin pump. - Hypoglycemic protocol. - Resumed on PLANT FACILITIES TECHNICIAN gabapentin 300 mg BID. CKD stage 3 Baseline creatinine between 1.20-1.40. - Monitor. CARMEN - Resumed on PLANT FACILITIES TECHNICIAN Zoloft 50 mg/d. Prostate cancer S/p prostate reduction. - Continue follow up with outpatient Urology. COVID-19 screening - Check PCR now. Clinically Significant Risk Factors Present on Admission # Hyperkalemia: K = 5.4 mmol/L (Ref range: 3.4 - 5.3 mmol/L) on admission, will monitor as appropriate # Obesity: Estimated body mass index is 30.13 kg/m?? as calculated from the following: Height as of an earlier encounter on 10/14/21: 1.803 m (5' 11). Weight as of an earlier encounter on 10/14/21: 98 kg (216 lb). Diet: NPO per Anesthesia Guidelines for Procedure/Surgery Except for: Meds Combination Diet Moderate Consistent Carb (60 g CHO per Meal) Diet; No Caffeine Diet; No Caffeine for 24 hours (once tests completed, may have caffeine) DVT Prophylaxis: Pneumatic Compression Devices Carr Catheter: Not present Code Status: Full Code confirmed with patient Disposition Plan Expected Discharge: 2-3 days. Anticipated discharge location: Awaiting care coordination huddleDelays: Cardiology evaluation and/or intervention completed. Entered: Luis Felipe Allan PA-C 10/14/2021, 7:20 PM The patient's care was discussed with the Bedside Nurse, Patient and Patient's Family. The patient has been discussed with Dr. Horn, who agrees with the assessment and plan at this time. Luis Felipe Allan PA-C [facility] Securely message with the [employer] Console (learn more here) Text page via [employer] Paging/Directory Chief Complaint Direct admit due to symptomatic bradycardia/junctional rhythm. History is obtained from the patient and EMR. History of Present Illness Nikita Adnerson is a 70 year old male with a past medical history significant for CAD s/p CABG (04/2021), Post-CABG atrial tachycardia versus atrial fib, Mild ischemic cardiomyopathy, HTN, HLP, Obesity, CARLITOS, DM1, Polyneuropathy, CKD, CARMEN, Prostate cancer who was directly admitted to [facility] due to symptomatic bradycardia/junctional rhythm. Patient presented to [facility] ED due to dizziness. He has been having recurrent lightheadedness for the last few days. He thought this was due to recent increase in his clonidine medication. The day prior to admission he went for a walk (0.75 miles) and develops shortness of breath, chest tightness and lightheadedness. When he checked his blood pressure and heart rate he was found to have a pulsein the 30's. Work-up in the ED included a BMP that revealed a potassium of 5.4, chloride of 110, BUN of 50, creatinine of 1.37, GFR of 55 and glucose of 100 otherwise within normal limits. Magnesium and HS TroponinI were within normal range. CBC with differential revealed a HGB of 11.2, Hematocrit of 35.1, RBC count of 4.01 otherwise within normal limits. EKG was completed twice and the first revealed marked sinus bradycardia and the second showed junctional bradycardia. Patient was evaluated by Cardiology and had temporary pacemaker placed. Patient was resting in bed upon my arrival and his was present in the room. We reviewed his medical and surgical history as well as some of his medications. We spoke about recent changes to blood pressure medications and events that led to his transfer to [facility]. Patient indicated that he occasionally has night sweats but is unsure if it is because of the blankets he uses at night. He did not sleep well last night and as a result has felt tired all day today. He has occasional diarrhea or loose stools but has not had a bowel movement today. In the mornings he finds it hard to start urianting. He has a history of a seizure due to low blood sugars. We spoke about his recurrent lightheadedness that began this weekend. He described what occurred while walking yesterday in which he developed lightheadedness, chest tightness, fatigue and shortness ofbreath. Today was the first time his lightheadedness occurred while seated and in fact occurred while he was driving. He subsequently developed finger numbness and was slow to answer questions. Review of Systems The 10 point Review of Systems is negative other than noted in the HPI. Past Medical History I have reviewed this patient's medical history and updated it with pertinent information if needed. Past Medical History: Diagnosis Date ??? Angina [...] uncontrolled(250.60) Abstracted 01/20/02 ??? Unspecified essential hypertension CAD s/p CABG (04/2021), Post-CABG atrial tachycardia versus atrial fib, Mild ischemic cardiomyopathy,HTN, HLP, Obesity, CARLITOS, DM1, Polyneuropathy, CKD, CARMEN, Prostate cancer Past Surgical History I have reviewed this patient's surgical history and updated it with pertinent information if needed. Past Surgical History: Procedure Laterality Date ??? [...] Surgeon: Mahendra Vega MD; Location: HEART CARDIAC EDUCATION GENERAL MANAGER ??? CV CORONARY ANGIOGRAM N/A 03/13/2021 Procedure: Coronary Angiogram; Surgeon: Darwin Valero MD; Location: HEART CARDIAC EDUCATION GENERAL MANAGER ??? CV HEART CATHETERIZATION WITH POSSIBLE INTERVENTION N/A 07/03/2021 Procedure: Coronary Angiogram; Surgeon: Mahendra Vega MD; Location: [facility] CARDIAC CATHLAB ??? CV INSTANTANEOUS WAVE-FREE RATIO N/A 03/13/2021 Procedure: Instantaneous Wave-Free Ratio; Surgeon: Darwin Valero MD; Location: HEART CARDIAC EDUCATION GENERAL MANAGER ??? CV LEFT HEART CATH N/A 07/03/2021 Procedure: Left Heart Cath; Surgeon: Mahendra Vega MD; Location: HEART CARDIAC EDUCATION GENERAL MANAGER ??? CV LEFT VENTRICULOGRAM N/A 07/03/2021 Procedure: Left Ventriculogram; Surgeon: Mahendra Vega MD; Location: HEART CARDIAC EDUCATION GENERAL MANAGER ??? HC LEFT HEART CATHETERIZATION 04/01/2016 mild LAD (30%), 50-60% rPDA ? ? HEAD & NECK SURGERY wisdom teeth extractions, subacious cyst removed ??? HEART CATH CORONARY ANGIOGRAM W/LV GRAM 01/03/15 70% prox PDA - FFR 0.77, 70% OM2 - FFR 0.79, 70-80% OM3 -FFR 0.77, 70-80% OM4, Social History I have reviewed this patient's social history and updated it with pertinent information if needed. Patient resides in a house in [place], [place] with his He is a former smoker who quit in 1971; he was more of a social smoker but not a daily habit. He consumes alcohol ~ 6 drinks per week. He doesnot use illicit drugs. He is complaint with CPAP. Social History Tobacco Use ??? Smoking status: Former Smoker Years: 2.00 Types: Cigarettes Quit date: 04/19/1972 Years since quittin.5 ??? Smokeless tobacco: Never Used Substance Use Topics ??? Alcohol use: Yes Comment: 4-5 drinks week ??? Drug use: No Family History I have reviewed this patient's family history and updated it with pertinent information if needed. Family History Problem Relation Age of Onset ??? Hypertension Mother ??? Diabetes Maternal Grandmother ??? Hypertension Maternal Grandmother ??? Hypertension Maternal Grandfather Maternal side of the family with HTN and DM2. Son: HTN. Prior to Admission Medications Prior to Admission Medications Prescriptions Last Dose Informant Patient Reported? Taking? Continuous Blood Gluc Sensor (DEXCOM G6 SENSOR) MISC Self Yes No Copper Gluconate (COPPER CAPS) 2 MG CAPS Yes No Sig: Take by mouth daily Ferrous Sulfate 324 (65 Fe) MG TBEC Yes No Sig: Take by mouth every morning Rx out, now getting it OTC HEMP OIL OR EXTRACT OR OTHER CBD CANNABINOID, NOT MEDICAL CANNABIS, Self Yes No Sig: Apply 1 Application topically 2 times daily as needed (Arthritis on right knee and wrist) Topical cream ONE TOUCH ULTRA TEST STRP Self No No Sig: as directed Polyethylene Glycol 400 (BLINK TEARS OP) Self Yes No Sig: Place 1 drop into both eyes daily as needed SYRINGE B-D MICRO FINE 1/2 CC SYRINGES Self No No Sig: as directed Turmeric 500 MG CAPS Self Yes No Sig: Take 1 capsule by mouth every morning acetaminophen (TYLENOL) 325 MG tablet Self No No Sig: Take 2 tablets (650 mg) by mouth every 4 hours as needed for mild pain Patient taking differently: Take 650 mg by mouth At Bedtime amLODIPine (NORVASC) 10 MG tablet Yes No Sig: Take 10 mg by mouth At Bedtime aspirin (ASA) 325 MG tablet Yes No Sig: Take 325 mg by mouth daily carvedilol (COREG) 6.25 MG tablet Yes No Sig: Take 1 tablet (6.25 mg) by mouth 2 times daily (with meals) Am and 8pm cloNIDine (CATAPRES) 0.2 MG tablet No No Sig: Take 1 tablet (0.2 mg) by mouth 2 times daily cyanocobalamin (VITAMIN B-12) 1000 MCG tablet Self Yes No Sig: Take 1,000 mcg by mouth daily gabapentin (NEURONTIN) 300 MG capsule No No Sig: Take 1 capsule (300 mg) by mouth 2 times daily Patient taking differently: Take 300 mg by mouth 8:30PM and at bedtime glucagon 1 MG kit Self Yes No Si mg once as needed for low blood sugar hydrALAZINE (APRESOLINE) 25 MG tablet No No Sig: Take 1 tablet (25 mg) by mouth 3 times daily Take 1 tablet 25mg three times daily in addition 1tablet 50mg three times daily, for a total of 75mg three times daily hydrALAZINE (APRESOLINE) 50 MG tablet No No Sig: Take 1 tablet (50 mg) by mouth 3 times daily Take 1 tablet 25mg three times daily in addition 1tablet 50mg three times daily, for a total of 75mg three times daily insulin lispro (HUMALOG) 100 UNIT/ML vial Self No No Si unit insulin for 5 carb units plus sliding scale as below: For Pre-Meal BG 150 - 199 give 2 unit. For Pre-Meal BG 200 - 249 give 4 units. For Pre-Meal BG 250 - 299 give 6 units. For Pre-Meal BG 300 - 349 give 8 units. For Pre-Meal BG greater than 350 - give 10 units. isosorbide dinitrate (ISORDIL) 30 MG tablet No No Sig: Take 1 tablet (30 mg) by mouth 3 times daily lisinopril (ZESTRIL) 10 MG tablet No No Sig: Take 1 tablet (10 mg) by mouth daily At bedtime melatonin 3 MG CAPS Self Yes No Sig: Take 10 mg by mouth At Bedtime rosuvastatin (CRESTOR) 40 MG tablet Self No No Sig: Take 1 tablet (40 mg) by mouth every evening sertraline (ZOLOFT) 50 MG tablet Self Yes No Sig: Take 50 mg by mouth daily Sleep doctor recommends taking at bedtime Facility-Administered Medications: None Allergies Allergies Allergen Reactions ??? Atorvastatin Other (See Comments) Congestion ??? Epinephrine Palpitations Physical Exam BP (!) 158/70 Pulse 60 Temp 97.6 ??F (36.4 ??C) (Oral) Resp 12 SpO2 100% Constitutional: Awake, alert, cooperative, no apparent distress. ENT: Normocephalic, without obvious abnormality, atraumatic, oral pharynx with moist mucus membranes, tonsils without erythema or exudates. Eyes pupils are equal, round and reactive to light; extra occular movements intact. Normal sclera. Neck: Supple, symmetrical, trachea midline, no adenopathy. Pulmonary: No increased work of breathing, good air exchange, clear to auscultation bilaterally, no crackles or wheezing. Cardiovascular: Irreg rhythm with normal rate, normal S1 and S2, no S3 or S4, and no murmur noted. GI: Normal bowel sounds, soft, non-distended, non-tender. Obese. Skin/Integumen: Visualized skin appeared clear. Neuro: CN II-XII grossly intact. Upper extremities strength, coordination and sensation intact bilaterally. Deferred lower extremity assessment due to bedrest. He demonstrated he could wiggle his toes bilaterally and dorsal and plantar flexion was intact and even bilaterally. Psych: Alert and oriented x 3. Normal affect. Extremities: No lower extremity edema noted, and calves are non-tender to palpation bilaterally. Data Data reviewed today: I reviewed all medications, new labs and imaging results over the last 24 hours. I personally reviewed no images or EKG's today. Recent Labs Lab 10/14/21 1231 WBC 8.3 HGB 11.2* MCV 88 PLT 187 NA 138 POTASSIUM 5.4* CHLORIDE 110* CO2 24 BUN 50* CR 1.37* ANIONGAP 4 RICHIE 9.0 GLC 100* Recent Results (from the past 24 hour(s)) Cardiac Catheterization Narrative 1. Successful temporary pacemaker placement via RFV. Capture threshold 0.2 mA. 2. Initial PPM settings: 60 bpm, 10 mA Associated attestation - Fadi Horn MD - 10/23/2021 1:05 PM CDT Physician Attestation I, Fadi Horn, have reviewed and discussed with the advanced practice provider their history, physical and plan for Nikita W Justin. I did not participate in a shared visit by interviewing or examining the patient and this should be billed as an advanced practice provider only visit. Fadi Horn Date of Service (when I saw the patient): I did not personally see this patient today. documented in this encounter Consult Notes Riddhi Lemus PA-C - 10/15/2021 8:20 AM CSTAssociated Order(s): ELECTROPHYSIOLOGY IP CONSULT [facility] Electrophysiology Consultation Date of Admission: 10/14/2021 Date of Consult (When we saw the patient): 10/15/21 Assessment & Plan Nikita Anderson is a 70 year old male who was admitted from [facility] (10/14) on the same day 10/14/2021. Wewere asked to see the patient for symptomatic bradycardia. 1. Symptomatic bradycardia - - Had increasing dizziness a/w increased exertional SOB/chest tightness. Noted HR in 30s and came toER at [facility], were temp pacer placed - PLANT FACILITIES TECHNICIAN on Coreg 6.25 mg BID and clonidine 0.2 mg BID (dose had been increased at Cardiology OV 10/10 from 0.1 mg BID) - Previous Holter/Event Monitor had shown no HRs below 55 bpm. His Coreg was briefly held after readmission 04/2021 following CABG d/t bradycardia, but restarted shortly thereafter without issues. - Clonidine 0.2 mg BID (incresaed from 0.1 mg BID on 10/10) & carvedilol 6.25 mg BID both stopped on admission. Last dose of clonidine 0.1 mg @ 10/14 @ 0900 - Temp pacer currently set @ 60 bpm - Tele with NSR 63-35 bpm PLAN: 1. TSH/T4 reflex add-on - done and is wnl 2. Discussed pacemaker implantation d/t concerns re: severe bradycardia with increasing episodes oflightheadedness/dizziness. He understands that his chinik HR has improved since holding clonidine and carvedilol, but with severe lightheadedness and significant bradycardia with need for BP meds, would recommend pacemaker implantation. 3. We discussed the risks, benefits and indications of dual chamber pacemaker implantation, including but not limited to use of conscious sedation, discomfort, peripheral vessel injury, pneumothorax, cardiac puncture and/or tamponade, device malfunction and/or recall, and infection requiring explantat ion of the device and halfway antibiotics. We also briefly discussed follow up expectations and restrictions following the procedure. He is L handed, will be plaecd on the R. The patient voiced understanding and is willing to proceed. A consent form was signed 2. CAD - - Sees Dr. Solis (last OV 10/10) - S/p 3 v CABG (DOUGLASS/LAD, rSVG/PRDA ,rSVG/OM 04/19/2021 - Had subsequent issues with pleural effusion and s/p thoracentesis 04/2021 and again 05/2021 - NSVT on event monitor led to Stress Test 06/2021 showing small area of mild ischemia in basal anterior segments of LV. This was new & echo 06/2021 showed drop in EF from 55-60% preop 12/2020 ---> 46% 05/2021. Underwent cath 07/03/2021 showed patent DOUGLASS/LAD and patent SVG/PRDA. SVG to OM stumpwas occluded. This did not explain echo findings. - PLANT FACILITIES TECHNICIAN on ASA, Imdur 60 (had been changed to isordil 30 mg TID at OV 10/10 but not picked up d/t cost),Coreg 6.25 mg BID, lisinopril 10 and Crestor 40. Last LDL 49 mg/dL 05/2021 - hsTrop negative x 1. No c/o angina when not bradycardic PLAN: 1. Continue ASA, nitrate, JAMAR and statin. 2. Resume BB following PPM implant 3. HTN - - Has been difficult to control per Dr. Solis's note - Currently on amlodipine 10, Coreg 6.25 mg BID, Clonidine 0.2 mg BID (incresaed 10/10 OV), hydralazine 75 mg TID with additional 25 mg PRN for SBP >170 mmH, lisinopril 10, and Imdur 60 - SBPs 90s-160s. No clonidine, Coreg given since admit. - Negative RA US - Negative Conn's Syndrome w/u - I believe dose of lisinopril has been limited d/t hyperkalemia PLAN: 1. Resume Carvedilol, Clonidine post PPM implant Riddhi Lemus PA-C [facility] Code Status Full Code Reason for Consult Reason for consult: We were asked by [facility] to evaluate for bradycardia Primary Care Physician Anatoliy Jackson Chief Complaint Bradycardia, junctional heart rhythm History is obtained from the patient and EPIC chart. History of Present Illness Nikita Anderson is a 70 year old male with h/o IDDM with insulin pump, CARLITOS on CPAP, CAD s/p CABG 04/2021 with AT vs AFib seen on subsequent Holter (<1 minute), HTN, dyslipidemia, h/o prostate CA and mild ischemic CM (46% 05/2021), who presented to [facility] on 10/14 d/t dizziness thought to be d/t increased clonidine dose. He then developed SOB, chest tightness and lightheadedness while walking. HR was only in the 30s and came to ER. In ER, noted to have SB and then junctional bradycardia for which temp pacer placed 10/14. [facility]. Currently, tele with SR 63 bpm. He's not required too much PPM use Past Medical History I have reviewed this patient's medical history and updated it with pertinent information if needed. Past Medical History: Diagnosis Date ??? Angina [...] 01/20/02 ??? Unspecified essential hypertension Past Surgical History I have reviewed this patient's surgical history and updated it with pertinent information if needed. Past Surgical History: Procedure Laterality Date ??? [...] DR GUTIERREZ.; Surgeon: Kushal Gardner MD; Location: [facility] OR ??? CORONARY ANGIOGRAPHY ADULT ORDER 07/2013 RCA 40-50% stenosis, prox PDA 60%, left circ 50-60%. Mod. nonobstructive CAD ??? CV ANGIOGRAM CORONARY GRAFT N/A 07/03/2021 Procedure: Angiogram Coronary Graft; Surgeon: Mahendra Vega MD; Location: [facility] CARDIAC EDUCATION GENERAL MANAGER ??? CV CORONARY ANGIOGRAM N/A 03/13/2021 Procedure: Coronary Angiogram; Surgeon: Darwin Valero MD; Location: HEART CARDIAC EDUCATION GENERAL MANAGER ??? CV HEART CATHETERIZATION WITH POSSIBLE INTERVENTION N/A 07/03/2021 Procedure: Coronary Angiogram; Surgeon: Mahendra Vega MD; Location: [facility] CARDIAC CATHLAB ??? CV INSTANTANEOUS WAVE-FREE RATIO N/A 03/13/2021 Procedure: Instantaneous Wave-Free Ratio; Surgeon: Darwin Valero MD; Location: [facility] CARDIAC EDUCATION GENERAL MANAGER ??? CV LEFT HEART CATH N/A 07/03/2021 Procedure: Left Heart Cath; Surgeon: Mahendra Vega MD; Location: [facility] CARDIAC EDUCATION GENERAL MANAGER ??? CV LEFT VENTRICULOGRAM N/A 07/03/2021 Procedure: Left Ventriculogram; Surgeon: Mahendra Vega MD; Location: HEART CARDIAC EDUCATION GENERAL MANAGER ??? HC LEFT HEART CATHETERIZATION 04/01/2016 mild LAD (30%), 50-60% rPDA ? ? HEAD & NECK SURGERY wisdom teeth extractions, subacious cyst removed ??? HEART CATH CORONARY ANGIOGRAM W/LV GRAM 01/03/15 70% prox PDA - FFR 0.77, 70% OM2 - FFR 0.79, 70-80% OM3 -FFR 0.77, 70-80% OM4, Prior to Admission Medications Prior to Admission Medications Prescriptions Last Dose Informant Patient Reported? Taking? Continuous Blood Gluc Sensor (DEXCOM G6 SENSOR) MISC Self Yes No Copper Gluconate (COPPER CAPS) 2 MG CAPS 10/14/2021 at am Self Yes Yes Sig: Take by mouth daily Ferrous Sulfate 324 (65 Fe) MG TBEC 10/14/2021 at am Self Yes Yes Sig: Take by mouth every morning Rx out, now getting it OTC HEMP OIL OR EXTRACT OR OTHER CBD CANNABINOID, NOT MEDICAL CANNABIS, prn Self Yes Yes Sig: Apply 1 Application topically 2 times daily as needed (Arthritis on right knee and wrist) Topical cream INSULIN PUMP - OUTPATIENT Self Yes Yes Sig: BASAL RATES and times: 0000 - 0500 : 1.1 units/hour, 0500 - 0000: 1.4 units/hour CARB RATIO and times: 0000 - 0500: 1:4 0500 - 1200: 1:3 1200 - 1630: 1:5 1630 - 2130: 1:3 2130 - 0000: 1:5 Corection Factor (Sensitivity) and times: 0000 - 0500: 1 unit: 35 mg/dL 0500 - 2130: 1 unit: 25 mg/dL 213 - 0000: 1 unit: 35 mg/dL BLOOD GLUCOSE TARGET: 110 mg/dL ONE TOUCH ULTRA TEST STRP Self No No Sig: as directed Polyethylene Glycol 400 (BLINK TEARS OP) prn Self Yes Yes Sig: Place 1 drop into both eyes daily as needed SYRINGE B-D MICRO FINE 1/2 CC SYRINGES Self No No Sig: as directed Turmeric 500 MG CAPS 10/14/2021 at am Self Yes Yes Sig: Take 1 capsule by mouth every morning acetaminophen (TYLENOL) 325 MG tablet prn Self No Yes Sig: Take 2 tablets (650 mg) by mouth every 4 hours as needed for mild pain acetaminophen (TYLENOL) 325 MG tablet 10/13/2021 at pm Self Yes Yes Sig: Take 650 mg by mouth At Bedtime amLODIPine (NORVASC) 10 MG tablet 10/13/2021 at 2030 Self Yes Yes Sig: Take 10 mg by mouth At Bedtime aspirin (ASA) 325 MG tablet 10/14/2021 at am Self Yes Yes Sig: Take 325 mg by mouth daily carvedilol (COREG) 6.25 MG tablet 10/14/2021 at am Self Yes Yes Sig: Take 6.25 mg by mouth 2 times daily (with meals) Am and 2029 cloNIDine (CATAPRES) 0.2 MG tablet 10/14/2021 at am Self No Yes Sig: Take 1 tablet (0.2 mg) by mouth 2 times daily clotrimazole (LOTRIMIN) 1 % external solution 10/14/2021 at am Self Yes Yes Sig: Instill 5 drops into left ear two times daily, lay with ear up for at least 10 minutes after use. Use a cotton ball with vaseline when showering to keep dry. cyanocobalamin (VITAMIN B-12) 1000 MCG tablet 10/14/2021 at am Self Yes Yes Sig: Take 1,000 mcg by mouth daily gabapentin (NEURONTIN) 300 MG capsule 10/13/2021 at pm Self No Yes Sig: Take 1 capsule (300 mg) by mouth 2 times daily Patient taking differently: Take 300 mg by mouth 2029 and 2300 glucagon 1 MG kit prn Self Yes Yes Si mg once as needed for low blood sugar hydrALAZINE (APRESOLINE) 25 MG tablet 10/14/2021 at Unknown time Self No Yes Sig: Take 1 tablet (25 mg) by mouth 3 times daily Take 1 tablet 25mg three times daily in addition 1tablet 50mg three times daily, for a total of 75mg three times daily hydrALAZINE (APRESOLINE) 25 MG tablet 10/13/2021 at Unknown time Self Yes Yes Sig: Take 25 mg by mouth daily At 2030 if SBP >170. Was previously taking as needed but has recently been taking scheduled. hydrALAZINE (APRESOLINE) 50 MG tablet 10/14/2021 at Unknown time Self No Yes Sig: Take 1 tablet (50 mg) by mouth 3 times daily Take 1 tablet 25mg three times daily in addition 1tablet 50mg three times daily, for a total of 75mg three times daily insulin lispro (HUMALOG) 100 UNIT/ML injection Self Yes Yes Sig: by Device route See Admin Instructions isosorbide dinitrate (ISORDIL) 30 MG tablet Has not started Self No No Sig: Take 1 tablet (30 mg) by mouth 3 times daily isosorbide mononitrate (IMDUR) 60 MG 24 hr tablet 10/13/2021 at 1630 Self Yes Yes Sig: Take 60 mg by mouth daily 1630 lisinopril (ZESTRIL) 10 MG tablet 10/13/2021 at 2030 Self No Yes Sig: Take 1 tablet (10 mg) by mouth daily At bedtime melatonin 3 MG CAPS 10/13/2021 at 2300 Self Yes Yes Sig: Take 10 mg by mouth At Bedtime rosuvastatin (CRESTOR) 40 MG tablet 10/13/2021 at pm Self No Yes Sig: Take 1 tablet (40 mg) by mouth every evening sertraline (ZOLOFT) 50 MG tablet 10/13/2021 at pm Self Yes Yes Sig: Take 50 mg by mouth daily Sleep doctor recommends taking at bedtime Facility-Administered Medications: None Medications ??? insulin basal rate for inpatient ambulatory pump ??? - MEDICATION INSTRUCTIONS - ??? - MEDICATION INSTRUCTIONS - ??? amLODIPine 10 mg Oral At Bedtime ??? aspirin 325 mg Oral Daily ??? clotrimazole Topical BID ??? gabapentin 300 mg Oral BID ??? hydrALAZINE 25 mg Oral TID ??? hydrALAZINE 50 mg Oral TID ? ? insulin bolus from AMBULATORY PUMP Subcutaneous 4x Daily AC & HS ??? insulin bolus from AMBULATORY PUMP Subcutaneous TID AC ??? insulin lispro Device See Admin Instructions ??? isosorbide mononitrate 60 mg Oral Daily ??? lisinopril 10 mg Oral At Bedtime ??? rosuvastatin 40 mg Oral QPM ??? sertraline 50 mg Oral At Bedtime ??? sodium chloride (PF) 3 mL Intracatheter Q8H ??? sodium chloride (PF) 3 mL Intracatheter Q8H ??? sodium chloride (PF) 3 mL Intracatheter Q8H Allergies Allergies Allergen Reactions ??? Atorvastatin Other (See Comments) Congestion ??? Epinephrine Palpitations Social History I have updated and reviewed the following Social History Narrative: Social History Social History Narrative ??? Not on file Quit smoking 1972 EtOH x 6 drinks/week Family History I have reviewed this patient's family history and updated it with pertinent information if needed. Family History Problem Relation Age of Onset ??? Hypertension Mother ??? Diabetes Maternal Grandmother ??? Hypertension Maternal Grandmother ??? Hypertension Maternal Grandfather Review of Systems The 5 point Review of Systems is negative other than noted in the HPI or here. Physical Exam Temp: 97.6 ??F (36.4 ??C) Temp src: Oral BP: 122/77 Pulse: 62 Resp: 16 SpO2: 100 % O2 Device: None (Room air) Vital Signs with Ranges Temp: [97.6 ??F (36.4 ??C)] 97.6 ??F (36.4 ??C) Pulse: [26-75] 62 Resp: [0-20] 16 BP: (97-185)/(44-77) 122/77 SpO2: [98 %-100 %] 100 % 212 lbs 11.9 oz Telemetry: SR 63 bpm Constitutional: awake, alert, cooperative, no apparent distress, and appears stated age Eyes: Sclera clear, lids/lashes unremarkable ENT: Normocephalic, atraumatic Respiratory: CTA B Cardiovascular: Regular. No RMG GI: BS present Skin: no bruising or bleeding Musculoskeletal: No edema. Temp pacer to R groin Neurologic: Awake, alert, oriented Data I personally reviewed the EKG tracing showing juntional bradycardia 27 bpm 10/14 @1340. Results for orders placed or performed during the hospital encounter of 10/14/21 (from the past 24 hour(s)) Hemoglobin A1c Result Value Ref Range Hemoglobin A1C 7.4 (H) 0.0 - 5.6 % Potassium Result Value Ref Range Potassium 5.5 (H) 3.4 - 5.3 mmol/L Asymptomatic COVID-19 Virus (Coronavirus) by PCR Nasopharyngeal Specimen: Nasopharyngeal; Swab Result Value Ref Range SARS CoV2 PCR Negative Negative Narrative Testing was performed using the meghna?? SARS-CoV-2 & Influenza A/B Assay on the meghna?? Shruthi?? System. This test should be ordered for the detection of SARS-COV-2 in individuals who meet SARS-CoV-2 clinical and/or epidemiological criteria. Test performance is unknown in asymptomatic patients. This test is for in vitro diagnostic use under the FDA EUA for laboratories certified under CLIA to perform moderate and/or high complexity testing. This test has not been FDA cleared or approved. A negative test does not rule out the presence of PCR inhibitors in the specimen or target RNA in concentration below the limit of detection for the assay. The possibility of a false negative should be considere d if the patient's recent exposure or clinical presentation suggests COVID-19. [facility] are certified under the Clinical Laboratory Improvement Amendments of 1988 (CLIA-88) as qualified to perform moderate and/or high complexity laboratory testing. Basic metabolic panel Result Value Ref Range Sodium 141 133 - 144 mmol/L Potassium 4.8 3.4 - 5.3 mmol/L Chloride 115 (H) 94 - 109 mmol/L Carbon Dioxide (CO2) 23 20 - 32 mmol/L Anion Gap 3 3 - 14 mmol/L Urea Nitrogen 45 (H) 7 - 30 mg/dL Creatinine 1.41 (H) 0.66 - 1.25 mg/dL Calcium 8.6 8.5 - 10.1 mg/dL Glucose 64 (L) 70 - 99 mg/dL GFR Estimate 53 (L) >60 mL/min/1.73m2 CBC with platelets Result Value Ref Range WBC Count 9.0 4.0 - 11.0 10e3/uL RBC Count 3.67 (L) 4.40 - 5.90 10e6/uL Hemoglobin 10.2 (L) 13.3 - 17.7 g/dL Hematocrit 31.7 (L) 40.0 - 53.0 % MCV 86 78 - 100 fL MCH 27.8 26.5 - 33.0 pg MCHC 32.2 31.5 - 36.5 g/dL RDW 14.9 10.0 - 15.0 % Platelet Count 185 150 - 450 10e3/uL RACT LOADER Associated attestation - Darrian Berman MD - 10/15/2021 11:08 AM CONTRACT LOADER ADDENDUM Patient seen and examined. Case discussed with PA/ADVERTISING MATERIAL DISTRIBUTOR. Agree with plan above. In summary, 70-yo M with a Hx of HTN, HL, CARLITOS, DM, CKD, CAD (previous PCI and CABG; DOUGLASS to LAD, rSVG to PDA, rSVG to OM2), who p/w with dizziness and was found to have symptomatic bradycardia associated with sinus node dysfunction. The temporary pacing wire was placed and he was transferred to [facility] for consideration for pacemaker plantation. Patient has had history of ischemic cardiomyopathy and difficult to control hypertension. Blood pressure medicines were recently adjusted (increasing clonidine dose) and he is chronic high dose of Coreg. He presents with symptomatic sinus bradycardia and heart rate improved after discontinuation of medications. Previous studies: -Echo (05/2021): Mild LV dysfunction. EF of 46%. Regional wall motion abnormalities. Plan: Symptomatic bradycardia in the setting of sinus node dysfunction. Heart rate improved after discontinuation of medication. However, patient has significant hypertension and underlying skin of cardiomyopathy. I favor pacemaker implantation to facilitate therapy. Procedure was explained details. He understand that is a 1-2% risk of persistent procedure. Physical Exam: Vitals: BP (!) 144/65 Pulse 63 Temp 98.3 ??F (36.8 ??C) (Axillary) Resp 11 Wt 96.5 kg (212 lb 11.9 oz) SpO2 99% BMI 29.67 kg/m?? Intake/Output Summary (Last 24 hours) at 10/15/2021 1101 Last data filed at 10/15/2021 0151 Gross per 24 hour Intake -- Output 1525 ml Net -1525 ml Constitutional: AAO x3. Pt is in NAD. HEAD: Normocephalic. SKIN: Skin normal color, texture and turgor with no lesions or eruptions. Neck: Supple, normal JVP, no carotid bruits. Eyes: PERRL, EOMI. Chest: CTAB. Cardiac: RRR, normal S1 and S2. No murmurs rubs or gallop. Abdomen: Normal BS. Soft, non-tender and non-distended. No rebound or guarding. Extremities: Pedious pulses palpable B/L. No LE edema noticed. Neurological: Strength and sensation symmetric and grossly intact throughout. Darrian Berman MD documented in this encounter Miscellaneous Notes Plan of Care - Nydia Canseco RN - 10/16/2021 1:14 PM CST Pt alert and oriented x4. Pt denies chest pain or shortness of breath. Pt tolerating reg diet. Voiding well. Pt in sinus rhythm, no paced beats noted. Pt given discharge instructions including medication dose changes and pacemaker education. Pt states all understanding discharge instructions and states ready for discharge. Pt states understanding all follow up care instructions. RACT LOADER Plan of Care - Navi Roe RN - 10/16/2021 7:34 AM CST Pt stable over night, VSS, no c/o Chest pain or sob. Tele:SR. Left shoulder c/d/I post PPM, no c/o pain. Pt slept well, no new issues noted. Pt may discharge today. RACT LOADER Plan of Care - Elvira Velázquez RN - 10/15/2021 10:44 PM CST Goal Outcome Evaluation: Pt is A&Ox4, denies CP, VSS except BP elevated, and on tele SR, on RA and LS clear - CPAP on for HS, up with SBA, BG self managed and pt has implanted insuline pump, up with SBA, L chest PPM site C/D/I, Tylenol given for ache. Plan for CXR, and PPM check and possible discharge home. Plan of Care Reviewed With: patient Overall Patient Progress: improving RACT LOADER Plan of Care - Nydia Canseco RN - 10/15/2021 3:08 PM CST Pt alert and oriented x4. Pt denies pain. Denies shortness of breath. PT denies nausea. Pt down to EP and has a permanent pacemaker placed and back to room at 1400. Site is intact with small dot of dried blood on dressing. Pt temporary venous pacemaker removed and 5 welsh sheath removed as well from R groin. Site is soft, no hematoma present. Pt ordered lunch and awaiting it. Pt in sinus rhythm, no paced beats noted from permanent pacemaker. Pt manages own insulin. Last BG 137. Pt and updated on plan of care. RACT LOADER Pre-Procedure - Alvarado Syed MD - 10/15/2021 12:43 PM CONTRACT LOADER GENERAL PRE-PROCEDURE: Procedure: PM Written consent obtained?: Yes Risks and benefits: Risks, benefits and alternatives were discussed Consent given by: Patient Patient states understanding of procedure being performed: Yes Patient's understanding of procedure matches consent: Yes Procedure consent matches procedure scheduled: Yes Expected level of sedation: Moderate Appropriately NPO: Yes ASA Class: 3 Mallampati : Grade 2- soft palate, base of uvula, tonsillar pillars, and portion of posterior pharyngeal wall visible Lungs: Lungs clear with good breath sounds bilaterally Heart: Normal heart sounds and rate History & Physical reviewed: History and physical reviewed and no updates needed Statement of review: I have reviewed the lab findings, diagnostic data, medications, and the plan for sedation RACT LOADER Plan of Care - Chloe Diaz RN - 10/15/2021 6:47 AM CST Pt. Came in with dizziness d/t symptomatic bradycardia. A&Ox4. Denies CP and SOB. VSS on RA. On BR d/t temp pace maker. Pacer setting- 60 bpm, 10 miliamps. R groin site WDL, no hematoma or bruit heard. Tele NSR. Pt. Managing own insulin pump/ BG checks and CPAP. Plan for permanent pacer insertion 10/15. NPO since midnight. RACT LOADER Provider Notification - Chloe Diaz RN - 10/15/2021 1:30 AM CST MD Notification Notified Person: MD Notified Person Name: Kike Notification Date/Time: 12909/17/2021 Notification Interaction: AMCOM Purpose of Notification: [id number] Pt. requesting melatonin d/t hard time sleeping. Chloe Aiken RN Orders Received: Melatonin 3mg Comments: RACT LOADER Plan of Care - Alethae Guerra RN - 10/14/2021 11:20 PM CST [id number] A&O x 4. Patient denies pain. VSS, on RA, besides known HTN. Strict bedrest d/t temporary pacer in R groin. R groin site, WDL.Tele: Frequently paced/SR. Temp pacer settings 60 bpm, 10 miliamps. Pt using personal insulin pump for checking BGs/insulin administration. Plan for EP consult tomorrow. Continue to Monitor. RACT LOADER Pharmacy - Alethea Sewell [facility] - 10/14/2021 10:20 PM CST Prescriber Notification Note The pharmacist has communicated with this patient's provider regarding a concern or therapy recommendation. Notified Person: Luis Felipe Allan PA-C Date/Time of Notification: 10/14/2021 @2210 Interaction: phone Concern/Recommendation: Insulin pump information updated on PLANT FACILITIES TECHNICIAN medication list. Ok to modify instructions in inpatient orders to reflect how insulin pump is running? TORB received to modify pump setting instructions in inpatient orders per medication reconciliation. Alethea Sewell, PharmD, BCPS RACT LOADER Pharmacy-Admission Medication History - Alethea Sewell RP - 10/14/2021 10:11 PM CST Pharmacy Medication History Admission medication history interview status for the 10/14/2021 admission is complete. See [facility] admission navigator for prior to admission medications Location of Interview: Patient room Medication history sources: Patient, Surescripts and Care Everywhere Significant changes made to the medication list: ?? Added scheduled acetaminophen, clotrimazole, and insulin pump information. ?? Modified hydralazine - patient uses 75 mg TID and an additional 25 mg daily prn for SBP >170. He has been using the 25 mg regularly around 2030 daily. ?? Added Imdur (see below) In the past week, patient estimated taking medication this percent of the time: greater than 90% Additional medication history information: ?? Patient was prescribed isosorbide dinitrate 30 mg (30 mg TID) on 10/10, but this medication is tier3 on his insurance formulary, so he did not pick this up. He has been taking his isosorbide mononitrate 60 mg daily as previously prescribed. Medication reconciliation completed by provider prior to medication history? Yes Time spent in this activity: 65 minutes Prior to Admission medications Medication Sig Last Dose Taking? Auth Provider acetaminophen (TYLENOL) 325 MG tablet Take 650 mg by mouth At Bedtime 10/13/2021 at pm Yes Unknown, Entered By History acetaminophen (TYLENOL) 325 MG tablet Take 2 tablets (650 mg) by mouth every 4 hours as needed for mild pain prn Yes Brenda Willoughby PA-C amLODIPine (NORVASC) 10 MG tablet Take 10 mg by mouth At Bedtime 10/13/2021 at 2030 Yes Giuliana Gomez APRN CNP aspirin (ASA) 325 MG tablet Take 325 mg by mouth daily 10/14/2021 at am Yes Reported, Patient carvedilol (COREG) 6.25 MG tablet Take 6.25 mg by mouth 2 times daily (with meals) Am and 202910/14/2021 at am Yes Giuliana Gomez APRN CNP cloNIDine (CATAPRES) 0.2 MG tablet Take 1 tablet (0.2 mg) by mouth 2 times daily 10/14/2021 at am Yes Fidencio Solis MD clotrimazole (LOTRIMIN) 1 % external solution Instill 5 drops into left ear two times daily, lay with ear up for at least 10 minutes after use. Use a cotton ball with vaseline when showering to keep dry. 10/14/2021 at am Yes Unknown, Entered By History Copper Gluconate (COPPER CAPS) 2 MG CAPS Take by mouth daily 10/14/2021 at am Yes Reported, Patient cyanocobalamin (VITAMIN B-12) 1000 MCG tablet Take 1,000 mcg by mouth daily 10/14/2021 at am Yes Reported, Patient Ferrous Sulfate 324 (65 Fe) MG TBEC Take by mouth every morning Rx out, now getting it OTC 10/14/2021 at am Yes Reported, Patient gabapentin (NEURONTIN) 300 MG capsule Take 1 capsule (300 mg) by mouth 2 times daily Patient taking differently: Take 300 mg by mouth 2029 and 2300 10/13/2021 at pm Yes Yasir Altamirano, DO glucagon 1 MG kit 1 mg once as needed for low blood sugar prn Yes Unknown, Entered By History HEMP OIL OR EXTRACT OR OTHER CBD CANNABINOID, NOT MEDICAL CANNABIS, Apply 1 Application topically 2 times daily as needed (Arthritis on right knee and wrist) Topical cream prn Yes Reported, Patient hydrALAZINE (APRESOLINE) 25 MG tablet Take 25 mg by mouth daily At 2030 if SBP >170. Was previously taking as needed but has recently been taking scheduled. 10/13/2021 at Unknown time Yes Unknown, Entered By History hydrALAZINE (APRESOLINE) 25 MG tablet Take 1 tablet (25 mg) by mouth 3 times daily Take 1 tablet 25mg three times daily in addition 1 tablet 50mg three times daily, for a total of 75mg three times daily 10/14/2021 at Unknown time Yes Fidencio Solis MD hydrALAZINE (APRESOLINE) 50 MG tablet Take 1 tablet (50 mg) by mouth 3 times daily Take 1 tablet 25mg three times daily in addition 1 tablet 50mg three times daily, for a total of 75mg three times daily 10/14/2021 at Unknown time Yes Fidencio Solis MD insulin lispro (HUMALOG) 100 UNIT/ML injection by Device route See Admin Instructions Yes Unknown, Entered By History INSULIN PUMP - OUTPATIENT BASAL RATES and [...] 35 mg/dL BLOOD GLUCOSE TARGET: 110 mg/dL Yes Unknown, Entered By History isosorbide mononitrate (IMDUR) 60 MG 24 hr tablet Take 60 mg by mouth daily 1630 10/13/2021 at 1630 Yes Unknown, Entered By History lisinopril (ZESTRIL) 10 MG tablet Take 1 tablet (10 mg) by mouth daily At bedtime 10/13/2021 at 2030 Yes Giuliana Gomez APRN CNP melatonin 3 MG CAPS Take 10 mg by mouth At Bedtime 10/13/2021 at 2300 Yes Reported, Patient Polyethylene Glycol 400 (BLINK TEARS OP) Place 1 drop into both eyes daily as needed prn Yes Reported, Patient rosuvastatin (CRESTOR) 40 MG tablet Take 1 tablet (40 mg) by mouth every evening 10/13/2021 at pm Yes Fidencio oSlis MD sertraline (ZOLOFT) 50 MG tablet Take 50 mg by mouth daily Sleep doctor recommends taking at bedtime10/13/2021 at pm Yes Reported, Patient Turmeric 500 MG CAPS Take 1 capsule by mouth every morning 10/14/2021 at am Yes Reported, Patient Continuous Blood Gluc Sensor (DEXCOM G6 SENSOR) MISC Unknown, Entered By History isosorbide dinitrate (ISORDIL) 30 MG tablet Take 1 tablet (30 mg) by mouth 3 times daily Has not started Fidencio Solis MD ONE TOUCH ULTRA TEST STRP as directed Roberto Linder MD SYRINGE B-D MICRO FINE 1/2 CC SYRINGES as directed Roberto Linder MD The information provided in this note is only as accurate as the sources available at the time of update(s) RACT LOADER Provider Notification - Alethea Guerra RN - 10/14/2021 9:12 PM CST MD Notification Notified Person: MD Notified Person Name: Rahel Notification Date/Time: 10/14/21 21:12 Notification Interaction: Page Purpose of Notification: 273 MILI...G. Pt is requesting to use his own insulin pump. Is it possible toget those orders put in vs SSI? Thanks! Orders Received: Comments: RACT LOADER documented in this encounter Plan of Treatment Upcoming Encounters Date Type Specialty Care Team Description 05/15/2022 Hospital Encounter Surgery Singh Torres MD [facility] [address] [place] [id number] (Wo rk) 05/15/2022 Surgery Surgery Neo Torres MD BLEPHAROPLASTY BILATERAL [facility] PTOSIS REPAIR BILATERAL [address] [place] [id number] (Wo rk) 06/25/2022 Ancillary Procedure Cardiology Kirk Silver MD [address] [place] [id number] (Wo rk) Scheduled Orders Name Type Priority Associated Diagnoses Order S chedule EKG 12-lead, tracing EKG Routine Enter c ondition for order only release in comm ents for 1 Occurrences sta rting 10/14/2021 Scheduled Procedures Name Priority Associated Diagnoses Date/Time REPAIR, PTOSIS, BILATERAL, Dermatochalas is 05/15/2022 7:30 AM CDT WITH BILATERAL BLEPHAROPLASTY 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 REPAIR, ECTROPION, EYE, Dermatochalasis 05/15/2022 7:30 AM CDT BILATERAL 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 EKG 12-LEAD, TRACING Routine 10/16/2021 8:03 AM R esults for this ONLY CONTRACT LOADER procedure are i n the results section. BASIC METABOLIC Routine 10/16/2021 5:42 AM Result s for this PANEL CONTRACT LOADER procedure are i n the results section. EP PACEMAKER Routine 10/15/2021 1:16 PM Bradycardia Results for this CONTRACT LOADER Near syncope procedure are in Junctional the results bradycardia section. TSH WITH FREE T4 Add-On 10/15/2021 5:30 AM Resul ts for this REFLEX CONTRACT LOADER procedure are i n the results section. BASIC METABOLIC Routine 10/15/2021 5:30 AM Result s for this PANEL CONTRACT LOADER procedure are i n the results section. CBC WITH PLATELETS Routine 10/15/2021 5:30 AM Res ults for this CONTRACT LOADER procedure are i n the results section. EP REPORT - HIM SCAN 10/15/2021 12:00 AM CONTRACT LOADER EP REPORT - HIM SCAN 10/15/2021 12:00 AM CONTRACT LOADER COVID-19 VIRUS STAT 10/14/2021 8:09 PM Results for this (CORONAVIRUS) BY PCR CONTRACT LOADER procedu re are in the results section. POTASSIUM STAT 10/14/2021 7:22 PM Results f or this CONTRACT LOADER procedure are i n the results section. HEMOGLOBIN A1C Routine 10/14/2021 7:19 PM Results for this CONTRACT LOADER procedure are i n the results section. documented in this encounter Results X-ray Chest 2 vws* (10/16/2021 9:33 AM CONTRACT LOADER) Anatomical Region Laterality Modality Chest Digital Radiography Specimen (Source) Anatomical Location Collection Method / Collectio n Time Received Time / Laterality Volume Impressions 10/16/2021 9:54 AM CONTRACT LOADER IMPRESSION: No acute disease. PATSY ORTIZ MD Narrative 10/16/2021 9:54 AM CONTRACT LOADER CHEST TWO VIEWS 10/16/2021 9:33 AM HISTORY: Implantable cardiac device plac ement, evaluate for pneumothorax. COMPARISON: June 24, 2021 FINDINGS: Cardiac leads noted that proje ct over the cardiac silhouette. No pneumothorax. There are n o acute infiltrates. The cardiac silhouette is stable. Pulmonary vasculature is unremarkable. Procedure Note Patsy Ortiz MD - 10/16/2021Fo rmatting of this note might be different from the original. CHEST TWO VIEWS 10/16/2021 9:33 AM HISTORY: Implantable cardiac device plac ement, evaluate for pneumothorax. COMPARISON: June 24, 2021 FINDINGS: Cardiac leads noted that proje ct over the cardiac silhouette. No pneumothorax. There are n o acute infiltrates. The cardiac silhouette is stable. Pulmonary vasculature is unremarkable. IMPRESSION: No acute disease. PATSY ORTIZ MD Alvarado Syed MD IMG DIAGNOSTIC IMAGING O RDERABLES EKG 12-lead, tracing only (10/16/2021 8:03 AM CONTRACT LOADER) Component Value Ref Range Test Analysis Performed Pathologis t Method Time At Signature Systolic Blood mmHg RADIOLOGY Pressure RESULTS Diastolic Blood mmHg RADIOLOGY Pressure RESULTS Ventricular Rate 80 BPM RADIOLOGY RESULTS Atrial Rate 80 BPM RADIOLOGY RESULTS TX Interval 156 ms RADIOLOGY RESULTS QRS Duration 106 ms RADIOLOGY RESULTS QT 366 ms RADIOLOGY RESULTS QTc 422 ms RADIOLOGY RESULTS P [place] 68 degrees RADIOLOGY RESULTS R AXIS 41 degrees RADIOLOGY RESULTS T [place] 67 degrees RADIOLOGY RESULTS Interpretation Sinus rhythm RADIOLOGY ECG Normal ECG RESULTS When compared with ECG of 14-OCT-2021 13:40, Sinus rhythm has replaced Junctional rhythm Vent. rate has increased BY ??53 BPM Nonspecific T wave abnormality no longer evident in Anterola teral leads Confirmed by MD CARLOS, FANNY Jenkins ([id number]), science editor Patsy Leigh ([id number]) on 10/19/2021 1:41:52 PM Specimen Anatomical Collection Method Collection Time Receive d Time (Source) Location / / Volume Laterality 10/16/2021 8:03 AM 1:41 CONTRACT LOADER PM CONTRACT LOADER Alvarado Syed MD ECG ORDERABLES Performing Organization Address City/State/ZIP Code Phon e Number RADIOLOGY RESULTS (ABNORMAL) Basic metabolic panel (10/16/2021 5:42 AM CONTRACT LOADER) Analysis Performed At Patho logist Time Signature Sodium 144 133 - 144 10/16/2021 LABORATORY mmol/L 6:32 AM CONTRACT LOADER Potassium 4.7 3.4 - 5.3 10/16/2021 LABORATORY mmol/L 6:32 AM CONTRACT LOADER Chloride 114 (H) 94 - 109 10/16/2021 LABORATORY mmol/L 6:32 AM CONTRACT LOADER Carbon Dioxide 25 20 - 32 10/16/2021 LABORATORY (CO2) mmol/L 6:32 AM CONTRACT LOADER Anion Gap 5 3 - 14 10/16/2021 LABORATORY mmol/L 6:32 AM CONTRACT LOADER Urea Nitrogen 39 (H) 7 - 30 10/16/2021 LABORATORY mg/dL 6:32 AM CONTRACT LOADER Creatinine 1.22 0.66 - 10/16/2021 LABORATORY 1.25 mg/dL 6:32 AM CONTRACT LOADER Calcium 9.2 8.5 - 10.1 10/16/2021 LABORATORY mg/dL 6:32 AM CONTRACT LOADER Glucose 102 (H) 70 - 99 10/16/2021 LABORATORY mg/dL 6:32 AM CONTRACT LOADER GFR Estimate 63 >60 10/16/2021 LABORATORY mL/min/1.7 6:32 AM CONTRACT LOADER 3m2 Comment: Effective July 30, 2021 eGF Rcr in adults is calculated using the 2020 CKD-EPI creatinine equation which includ es age and gender (Prateek et al., NEJM, DOI: 10.1056/KLEBhl1059817) Specimen Anatomical Collection Method / Collection Time Recei shyla Time (Source) Location / Volume Laterality Blood STRUCTURE OF LEFT Venipuncture / 10/16/2021 5:42 10/16 6:09 UPPER LIMB / Unknown AM CONTRACT LOADER AM CONTRACT LOADER Unknown Ebenezer Luu MD LAB - BLOOD ORDERABLES Performing Organization Address City/State/ZIP Code Phon e Number LABORATORY [facility], [place] [address] Care Lab [address] floor, Room 20B EP PACEMAKER (10/15/2021 1:16 PM CONTRACT LOADER) Anatomical Region Laterality Modality Radio Fluoroscopy Specimen (Source) Anatomical Location Collection Method / Collectio n Time Received Time / Laterality Volume Narrative 10/15/2021 1:30 PM CONTRACT LOADER PROCEDURES PERFORMED: 1. Implantation of dual-chamber permanen t pacemaker. 2. Cardiac fluoroscopy (1.2 minutes). 3. Conscious sedation, mild-moderate lev el. CLINICAL HISTORY: 70-year-old male with history of coronar y artery disease and previous CABG who is admitted with symptomatic sinus/j unctional bradycardia. ??The patient received a temporary pacemaker y . ??Permanent there is no reversible cause and pacemaker implantat ion has been recommended. ??The risks and benefits of the procedure were discussed in detail; the patient expressed understanding and provided con sent. PROCEDURE: The patient was brought to the cardiac e lectrophysiology laboratory at [facility] on 10/15/2021. I determined this patient to be an appropriate candidate for the planned sedation and procedure and have reassessed the patient immediately prior to sedation and procedure.The patient was in the fasting nonsedated st ate. Informed consent had been obtained. The patient was placed on the procedure table and the anterior chest was prepped and draped in the usua l sterile fashion. ??We continuously monitored vital signs, oxyg enation and level of sedation. ?? Antibiotic prophylaxis was administered. ??Intravenous sedation was given to achieve patient comfort. Using a fluoroscopic guided technique th e left subclavian vein was cannulated without difficulty. ??Two sep arate guidewires were introduced and retained. ??Under local anesthesia a n incision was created in the left pectoral region. The incision was taken down to the pectoralis muscle and fascia and a pocket was created for the pacemaker generator. Using a peel-away introducer sheath the right ventricular lead was initially introduced. ??The tip of the l ead was brought at the septal RVOT. Good sensing and pacing parameters were confirmed. 10 V pacing did not stimulate the diaphragm. The lead was se cured using interrupted Ethibond sutures. Using another peel-away introducer sheat h the right atrial lead was introduced. The tip of the lead was brou ght at the superior anterior RA. Good sensing and pacing parameters were confirmed. 10 V pacing did not stimulate the diaphragm. The lead was se cured using interrupted Ethibond sutures. The device pocket was then irrigated wit h antibiotic solution. The leads were then connected to the pacemaker gen erator which was placed in the pocket. ??The wound was closed in 2 laye rs using 2.0 and 4.0 Vicryl. ?? Steri-Strips, sterile gauze, and a press ure dressing were placed over the wound. The temporary pacing electrode was remov ed under fluoroscopy. The femoral venous sheath was removed as well. There were no apparent complications. Th e patient was brought back to the hospital room in stable condition. Estimated blood loss was 10? 15 ml. ?? RESULTS: A. ??Implanted leads: (i) RV lead: ??[employer] lead mo del 7841, serial [id number]. ??R-wave sensing 9.4 mV. ??Pacing threshold 0.4 V at 0.4 msec. ??Pacing impedance 755 ohms. ?? (ii) RA lead: ??[employer] lead m astrid 7840, serial [id number]. ??P-wave sensing 5.8 mV. ??Pacing threshold 0.4 V at 0.4 msec. ??Pacing impedance 550 ohms. ?? B. ??Pulse generator: [employer] model L[address], serial [id number]. C. ??Programming: DDDR 60/130 bpm CONCLUSIONS: 1. ??Successful implantation of MRI-comp atible dual-chamber permanent pacemaker. 2. ??No apparent in-lab complication. Riddhi Lemus PA-C CV ELECTROPHYSIOLOGY ORDE RABLES TSH with free T4 reflex (Add on or recollect) (10/15/2021 5:30 AM CONTRACT LOADER) athologist Signature TSH 3.12 0.40 - 4.00 10/15/2021 SH LABORATORY mU/L 8:57 AM CONTRACT LOADER Specimen Anatomical Collection Method / Collection Time Recei shyla Time (Source) Location / Volume Laterality Blood STRUCTURE OF LEFT Venipuncture / 10/15/2021 5:30 10/15 5:40 HAND / Unknown Unknown AM CONTRACT LOADER AM CONTRACT LOADER Riddhi Lemus PA-C LAB - BLOOD ORDERABLES Performing Organization Address City/State/ZIP Code Phon e Number LABORATORY [facility] [place] [address] Care Lab [address] 1[address], Room 20B (ABNORMAL) CBC with platelets (10/15/2021 5:30 AM CONTRACT LOADER) [facility] Method Time Signature WBC Count 9.0 4.0 - 11.0 10/15/2021 LABORATORY 10e3/uL 5:43 AM CONTRACT LOADER RBC Count 3.67 (L) 4.40 - 10/15/2021 LABORATORY 5.90 5:43 AM CONTRACT LOADER 10e6/uL Hemoglobin 10.2 (L) 13.3 - 10/15/2021 LABORATORY 17.7 g/dL 5:43 AM CONTRACT LOADER Hematocrit 31.7 (L) 40.0 - 10/15/2021 LABORATORY 53.0 % 5:43 AM CONTRACT LOADER MCV 86 78 - 100 10/15/2021 LABORATORY fL 5:43 AM CONTRACT LOADER MCH 27.8 26.5 - 10/15/2021 LABORATORY 33.0 pg 5:43 AM CONTRACT LOADER MCHC 32.2 31.5 - 10/15/2021 LABORATORY 36.5 g/dL 5:43 AM CONTRACT LOADER RDW 14.9 10.0 - 10/15/2021 LABORATORY 15.0 % 5:43 AM CONTRACT LOADER Platelet Count 185 150 - 450 10/15/2021 LABORATORY 10e3/uL 5:43 AM CONTRACT LOADER Specimen Anatomical Collection Method / Collection Time Recei shyla Time (Source) Location / Volume Laterality Blood STRUCTURE OF LEFT Venipuncture / 10/15/2021 5:30 10/15 5:40 HAND / Unknown Unknown AM CONTRACT LOADER AM CONTRACT LOADER Luis Felipe Allan PA-C LAB - BLOOD ORDERABLES Performing Organization Address City/State/ZIP Code Phon e Number LABORATORY [facility] [place] [address] Care Lab [address] 1[address], Room 20B (ABNORMAL) Basic metabolic panel (10/15/2021 5:30 AM CONTRACT LOADER) [facility] gist Method Time Signature Sodium 141 133 - 144 10/15/2021 LABORATORY mmol/L 5:58 AM CONTRACT LOADER Potassium 4.8 3.4 - 5.3 10/15/2021 LABORATORY mmol/L 5:58 AM CONTRACT LOADER Chloride 115 (H) 94 - 109 10/15/2021 LABORATORY mmol/L 5:58 AM CONTRACT LOADER Carbon Dioxide 23 20 - 32 10/15/2021 LABORATORY (CO2) mmol/L 5:58 AM CONTRACT LOADER Anion Gap 3 3 - 14 10/15/2021 LABORATORY mmol/L 5:58 AM CONTRACT LOADER Urea Nitrogen 45 (H) 7 - 30 10/15/2021 LABORATORY mg/dL 5:58 AM CONTRACT LOADER Creatinine 1.41 (H) 0.66 - 10/15/2021 LABORATORY 1.25 mg/dL 5:58 AM CONTRACT LOADER Calcium 8.6 8.5 - 10.1 10/15/2021 LABORATORY mg/dL 5:58 AM CONTRACT LOADER Glucose 64 (L) 70 - 99 10/15/2021 LABORATORY mg/dL 5:58 AM CONTRACT LOADER GFR Estimate 53 (L) >60 10/15/2021 LABORATORY mL/min/1.7 5:58 AM CONTRACT LOADER 3m2 Comment: Effective July 30, 2021 eGF Rcr in adults is calculated using the 2020 CKD-EPI creatinine equation which includ es age and gender (Prateek et al., NEJM, DOI: 10.1056/ZQNHez2381063) Specimen Anatomical Collection Method / Collection Time Recei shyla Time (Source) Location / Volume Laterality Blood STRUCTURE OF LEFT Venipuncture / 10/15/2021 5:30 10/15 5:40 HAND / Unknown Unknown AM CONTRACT LOADER AM CONTRACT LOADER Luis Felipe Allan PA-C LAB - BLOOD ORDERABLES Performing Organization Address City/State/ZIP Code Phon e Number LABORATORY [facility] [place] [address] Care Lab [address], Room 20B EP REPORT - HIM SCAN (10/15/2021 12:00 AM CONTRACT LOADER) Specimen (Source) Anatomical Location Collection Method / Collectio n Time Received Time / Laterality Volume 10/15/2021 Narrative This result has an attachment that is no t available. Provider Scan CV ELECTROPHYSIOLOGY ORDERAB LES EP REPORT - HIM SCAN (10/15/2021 12:00 AM CONTRACT LOADER) Specimen (Source) Anatomical Location Collection Method / Collectio n Time Received Time / Laterality Volume 10/15/2021 Narrative This result has an attachment that is no t available. Provider Scan CV ELECTROPHYSIOLOGY ORDERAB LES Asymptomatic COVID-19 Virus (Coronavirus) by PCR Nasopharyngeal (10/14/2021 8:09 PM CONTRACT LOADER) Analysis Performed At [facility] Time Signature SARS CoV2 PCR Negative Negative 10/14/2021 LABORATORY 9:07 PM CONTRACT LOADER Comment: NEGATIVE: SARS-CoV-2 (COVID-19) RNA not detected, presumed negative. Specimen Anatomical Location / Collection Method Collection Abiodun e Received Time (Source) Laterality / Volume Swab NASOPHARYNGEAL Non-blood 10/14/2021 8:09 10/14/2021 8:18 STRUCTURE / Unknown Collection / PM CONTRACT LOADER PM CONTRACT LOADER Unknown Narrative LABORATORY - 10/14/2021 9:07 PM CONTRACT LOADER Testing was performed using the meghna?? SARS-CoV-2 & Influenza A/B Assay on the meghna?? Shruthi?? System. ??This test shoul d be ordered for the detection of SARS-COV-2 in individuals who meet SARS-CoV-2 clini richie and/or epidemiological criteria. Test performance is unknown in asymptomatic p atients. ??This test is for in vitro diagnostic use under the FDA EUA for lab oratories certified under CLIA to perform moderate and/or high complexity testing. This test has not been FDA cleared or approved. ??A negative test does not rul e out the presence of PCR inhibitors in the specimen or target RNA in concentration below the limit of detection for the assay. The possibility of a false negative shou ld be considered if the patient's recent exposure or clinical presentation sugges ts COVID-19. ??[facility] are certified under the Clinical Laborat ory Improvement Amendments of 1988 (CLIA-88) as qualified to perform moderate and/or high complexity laboratory testing. Luis Felipe Allan PA-C LAB - MICRO GENERAL ORDER SOCOR[place] Performing Organization Address City/State/ZIP Code Phon e Number LABORATORY [facility] [place] [address] Care Lab [address] 1[address], Room 20B (ABNORMAL) Potassium (10/14/2021 7:22 PM CONTRACT LOADER) P athologist Signature Potassium 5.5 (H) 3.4 - 5.3 10/14/2021 LABORATORY mmol/L 8:05 PM CONTRACT LOADER Specimen Anatomical Collection Method / Collection Time Recei shyla Time (Source) Location / Volume Laterality Blood STRUCTURE OF LEFT Venipuncture / 10/14/2021 7:22 10/14 7:35 HAND / Unknown Unknown PM CONTRACT LOADER PM CONTRACT LOADER Luis Felipe Allan PA-C LAB - BLOOD ORDERABLES Performing Organization Address City/State/ZIP Code Phon e Number LABORATORY [facility] [place] [address] Care Lab [address] 1[address], Room 20B (ABNORMAL) Hemoglobin A1c (10/14/2021 7:19 PM CONTRACT LOADER) Analysis Performed At Patho logist Time Signature Hemoglobin A1C 7.4 (H) 0.0 - 5.6 10/14/2021 LABORATORY % 8:25 PM CONTRACT LOADER Comment: Normal <5.7% Prediabetes 5.7-6.4% ?? Diabetes 6.5% or higher Note: Adopted from ADA consensus guideli anna. Specimen Anatomical Collection Method / Collection Time Recei shyla Time (Source) Location / Volume Laterality Blood STRUCTURE OF LEFT Venipuncture / 10/14/2021 7:19 10/14 7:34 HAND / Unknown Unknown PM CONTRACT LOADER PM CONTRACT LOADER Luis Felipe Allan PA-C LAB - BLOOD ORDERABLES Performing Organization Address City/State/ZIP Code Phon e Number LABORATORY [facility] [place] [address] Care Lab 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 Given 10/15/2021 3:55 AM CONTRACT LOADER 650 mg Given 10/15/2021 12:14 AM CONTRACT LOADER 650 mg acetaminophen (TYLENOL) tablet 650 mg Given 10/16/2021 8:04 AM CONTRACT LOADER 650 mg 650 mg, Oral, EVERY 4 HOURS PRN, mild pain, fever, Starting on Thu10/15/21 at 1406, Post-procedurally for CAR electrophysiology studies. Maximum acetaminophen dose from all sources = 75 mg/kg/day not to exceed 4 grams/day. Given 10/15/2021 10:11 PM CONTRACT LOADER 650 mg amLODIPine (NORVASC) tablet 10 mg Given 10/15/2021 8:18 PM CONTRACT LOADER 10 mg 10 mg, Oral, AT BEDTIME, First dose on Thu10/14/21 at 2130 Given 10/14/2021 9:33 PM CONTRACT LOADER 10 mg aspirin (ASA) tablet 325 mg Given 10/16/2021 8:01 AM CONTRACT LOADER 325 mg 325 mg, Oral, DAILY, First dose on Thu10/15/21 at 0900 Given 10/15/2021 8:43 AM CONTRACT LOADER 325 mg carvedilol (COREG) tablet 12.5 mg Given 10/16/2021 10:17 AM CONTRACT LOADER 12.5 mg 12.5 mg, Oral, 2 TIMES DAILY WITH MEALS, First dose (after last modification) on Thu10/16/21 at 0900 cloNIDine (CATAPRES) tablet 0.1 mg Given 10/16/2021 12:51 PM CONTRACT LOADER 0.1 mg 0.1 mg, Oral, 2 TIMES DAILY, First dose (after last modification) on Thu10/16/21 at 1130 clotrimazole (LOTRIMIN) 1 % solution Given 10/16/2021 8:05 AM CONTRACT LOADER Topical, 2 TIMES DAILY, First dose on Thu10/15/21 at 0100, Apply to ears/affected area Given 10/15/2021 10:13 PM CONTRACT LOADER Given 10/15/2021 8:43 AM CONTRACT LOADER dextrose 50 % injection 25-50 mL 25-50 mL, Intravenous, EVERY 15 MIN PRN, low blood sug ar, Administer over 1-5 Minutes, Starting on Thu10/14/21 at 1906, Use if have I V access, BG less than 70 mg/dL and meet dose criteria below: Dose if conscious and alert (or disorientated) and NPO = 25 mL Dose if unconscious / no t alert = 50 mL Give first dose for initial blood glucose less than 70 mg/dL. If blood glucose at 15 minute recheck is less than or equal to 100 mg/dL continue to a dminister carbohydrate treatment every 15 minutes, as needed, based on blood gluco se and assessment parameters until blood glucose level is above 100 mg/dL. Vesicant. gabapentin (NEURONTIN) capsule 300 mg Given 10/15/2021 10:20 PM CONTRACT LOADER 300 mg 300 mg, Oral, 2 TIMES DAILY, First dose on Thu10/14/21 at 2300 Given 10/15/2021 8:18 PM CONTRACT LOADER 300 mg Given 10/15/2021 12:14 AM CONTRACT LOADER 300 mg glucagon injection 1 mg 1 mg, Subcutaneous, EVERY 15 MIN PRN, low blood sugar, May repeat x 1 only, Starting on Thu10/14/21 at 1906, May give SQ or IM. ONLY use glucagon IF patient has NO IV access AND is UNABLE to swallow AN D blood glucose is LESS than or EQUAL to 50 mg/dL. glucose gel 15-30 g 15-30 g, Oral, EVERY 15 MIN PRN, low blo od sugar, Starting on Thu10/14/21 at 1906, Give first dose for initial blood glucose less than 70 mg/dL per the dosing instructions below. If blood glucose at 15 minute rechecks is still less than or equal to 100 mg/dL, continue to administ er doses per blood glucose parameters every 15 minutes, as needed, until blood glucose level is ab ove 100 mg/dL. Dosing Instructions: ~If patient is conscious a nd able to swallow and NO enteral tube For initial BG 51-69mg/dL OR 15 minute reche ck BG 51- 100 mg/dL - give 15 g For BG less than or equal to 50 mg/dL - give 30 g ~ If Enteral tube For initial BG 51-69mg/dL OR 15 minute recheck BG 51- 100 mg/dL - give apple juice 120 mL (4 oz or 15 g of CHO) via enteral tube For BG less than o r equal to 50 mg/dL - Give apple juice 240 mL (8 oz or 30 g of CHO) via enteral tub e ~Oral gel is preferable for conscious and able to swallow patient. ~IF gel unavail able or patient refuses may provide apple juice per Enteral tube dosing instructio ns. Document juice on I and O flowsheet. hydrALAZINE (APRESOLINE) injection 10 mg Given 10/16/2021 7:59 AM CONTRACT LOADER 10 mg 10 mg, Intravenous, EVERY 4 HOURS PRN, high blood pressure, give for SBP > 170, Starting on Thu10/14/21 at 1906 Given 10/15/2021 8:25 PM CONTRACT LOADER 10 mg hydrALAZINE (APRESOLINE) tablet 25 mg Given 10/16/2021 8:01 AM CONTRACT LOADER 25 mg 25 mg, Oral, 3 TIMES DAILY, First dose on Thu10/14/21 at 2200 Given 10/15/2021 10:12 PM CONTRACT LOADER 25 mg Given 10/15/2021 4:00 PM CONTRACT LOADER 25 mg hydrALAZINE (APRESOLINE) tablet 50 mg Given 10/16/2021 8:01 AM CONTRACT LOADER 50 mg 50 mg, Oral, 3 TIMES DAILY, First dose on Thu10/14/21 at 2200 Given 10/15/2021 10:11 PM CONTRACT LOADER 50 mg Given 10/15/2021 4:00 PM CONTRACT LOADER 50 mg insulin basal rate from AMBULATORY PUMP Insulin type in pump reservoir: insulin lispro (HumaLOG), Basal Rates and Start/End times: 0000 - 0500 : 1.1 units/hour, ?? 0500 - 0000: 1 .4 units/hour insulin bolus from AMBULATORY PUMP Given 10/16/2021 12:50 PM CONTRACT LOADER Insulin type in pump reservoir: insulin lispro (HumaLOG), Bolus-Correction: 0000 - 0500: 1 unit(s) to lower blood glucose by 35 mg/dL 0500 - 2130: 1 unit(s) to lower blood glucose by 25 mg/dL 2130 - 0000: 1 unit(s) to lower blood glucose by 35 mg/dL Given 10/16/2021 10:18 AM CONTRACT LOADER Given 10/15/2021 8:45 AM CONTRACT LOADER insulin bolus from AMBULATORY PUMP Given 10/16/2021 10:18 AM CONTRACT LOADER Insulin type in pump reservoir: insulin lispro (HumaLOG), CARB RATIO and times: 0000 - 0500: 1 unit for 4 grams of carbohydrate 0500 - 1200: 1 units for 3 grams of carbohydrate 1200 - 1630: 1 units for 5 grams of carbohydrate 1630 - 2130: 1 units for 3 grams of carbohydrate 2130 - 0000: 1 units for 5 grams of carbohydrate insulin lispro (HumaLOG) 100 UNIT/ML via l for filling pump reservoir Device, SEE ADMIN INSTRUCTIONS, Starting on Thu10/14/21 at 2200, Scan vial and chart when filling insulin pump reservoir isosorbide mononitrate (IMDUR) 24 hr tablet 60 Given 0 10/15/2021 4:01 PM CONTRACT LOADER 60 mg mg 60 mg, Oral, DAILY, First dose on Thu10/14/21 at 2200, DO NOT CRUSH. Can split tablet in half along score alden. Given 10/14/2021 10:34 PM CONTRACT LOADER 60 mg lisinopril (ZESTRIL) tablet 10 mg Given 10/15/2021 10:11 PM CONTRACT LOADER 10 mg 10 mg, Oral, AT BEDTIME, First dose on Thu10/14/21 at 2200 Given 10/14/2021 9:33 PM CONTRACT LOADER 10 mg melatonin tablet 3 mg Given 10/15/2021 10:20 PM CONTRACT LOADER 3 mg 3 mg, Oral, AT BEDTIME PRN, sleep, Starting on Thu10/15/21 at 0136 Given 10/15/2021 1:48 AM CONTRACT LOADER 3 mg naloxone (NARCAN) injection 0.2 mg 0.2 mg, Intravenous, EVERY 2 MIN PRN, op ioid reversal, Starting on Thu10/14/21 at 1920, Administer intravenous route when available and notify provider when administered. For unintended sedation or respiratory depression if all of the below criteria are met: ~ respiratory rate LES S than or EQUAL to 8. ~SaO2 less than 92% and or/end-tidal CO2 is greater than 50. ~ the patient is receiving an opioid, has unintended sedations assessed as RASS (-3), and is cur rently not on mechanical ventilation. RASS scale moderate (-3) is movement or eye opening to voice but no eye contact. Patient Monitoring Once the patient has demonstrated a response to the naloxone, continue to monitor respiratory rate, depth, oxygen saturation and end-tidal CO2 (if available) every 15 mi nutes x 2, then every 30 minutes x 2, then every 1 hour x 1 after each naloxone dose. Consider tr ansfer to ICU if patient respiratory parameters have not improved after 4 nalox one doses. naloxone (NARCAN) injection 0.2 mg 0.2 mg, Intramuscular, EVERY 2 MIN PRN, opioid reversal, Starting on Thu10/14/21 at 1920, Administer intramuscular if an int ravenous route is not available and notify provider when administered. For unintend ed sedation or respiratory depression if all of the below criteria are met: ~ respiratory rate LESS than or EQUAL to 8. ~SaO2 less than 92% and or/end-tidal CO2 is greater th an 50. ~ the patient is receiving an opioid, has unintended sedations assessed as RASS (-3), and is currently not on mechanical ventilation. RASS scale moderate (-3) is movement or eye opening to voice but no eye contact. Patient Monitoring Once the patient has demonstrated a response to the naloxone, continue to m onitor respiratory rate, depth, oxygen saturation and end-tidal CO2 (if availab le) every 15 minutes x 2, then every 30 minutes x 2, then every 1 hour x 1 after each naloxone dose. Consider transfer to ICU if patient respiratory parameters have not improved after 4 naloxone doses. naloxone (NARCAN) injection 0.4 mg 0.4 mg, Intravenous, EVERY 2 MIN PRN, op ioid reversal, Starting on Thu10/14/21 at 1920, Administer intravenous route when available and notify provider when administered. For unintended sedation or respiratory depression if all of the below criteria are met: ~ respiratory rate LES S than or EQUAL to 8. ~ SaO2 less than 92% and or/end-tidal CO2 is greater than 50. ~ the patient is receiving an opioid, has unintended sedation assessed as RASS (-4 ) or (-5) and patient is currently not on mechanical ventilation. RASS scale (-4) is deep sedation with no response to voice but movement or eye opening to physical stimulation. R ASS scale (-5) is unarousable. Patient Monitoring Once the patient has demonstrated a response to the naloxone, continue to monitor respiratory rate, depth, oxygen saturation and end-tidal CO2 (if available) every 15 mi nutes x 2, then every 30 minutes x 2, then every 1 hour x 1 after each naloxone dose. Consider tr ansfer to ICU if patient respiratory parameters have not improved after 4 nalox one doses. naloxone (NARCAN) injection 0.4 mg 0.4 mg, Intramuscular, EVERY 2 MIN PRN, opioid reversal, Starting on Thu10/14/21 at 1920, Administer intramuscular if an int ravenous route is not available and notify provider when administered. For unintend ed sedation or respiratory depression if all of the below criteria are met: ~ res piratory rate LESS than or EQUAL to 8. ~ SaO2 less than 92% and or/end-tidal CO2 is greater sandee n 50. ~ the patient is receiving an opioid, has unintended sedation assessed as RASS (-4) or (-5) and patient is currently not on mechanical ventilation. RA SS scale (-4) is deep sedation with no response to voice but movement or eye opening to physical stimulation. RASS scale (-5) is unarousa ble. Patient Monitoring Once the patient has demonstrated a response to the nalox one, continue to monitor respiratory rate, depth, oxygen saturation and end-tidal CO2 (if availab le) every 15 minutes x 2, then every 30 minutes x 2, then every 1 hour x 1 after each naloxone dose. Consider transfer to ICU if patient respiratory parameters have not improved after 4 naloxone doses. nitroGLYcerin (NITROSTAT) sublingual tab let 0.4 mg 0.4 mg, Sublingual, EVERY 5 MIN PRN, syed st pain, Starting on Thu10/14/21 at 2020, Maximum 3 doses in 15 minutes. Notify provider if no r elief after 3 doses. IF patient has received sildenafil (VIAGRA/ REVATIO), avanafil (STENDRA) or vardenafil (LEVITRA/STAXYN) within the last 24 hour s, OR tadalafil (CIALIS/ADCIRCA) within the last 48 hours inform provider. If patien t is still having acute angina requiring treatment, an alternative treatment option may be used such as: IV beta-hong [2.5 mg - 5 mg metoprolol (LOPRESSOR)] if ordered by a provider. ondansetron (ZOFRAN) injection 4 mg 4 mg, Intravenous, EVERY 6 HOURS PRN, nausea, vomiting , Administer over 2-5 Minutes, Starting on Thu10/14/21 at 1904, Give IF patient unable to tolerate oral medication. This is Step 1 of nausea and vomiting ann gement. If nausea not resolved in 15 minutes, go to Step 2 prochlorperazine (COMPAZINE). Irritant. ondansetron (ZOFRAN-ODT) ODT tab 4 mg 4 mg, Oral, EVERY 6 HOURS PRN, nausea, v omiting, Starting on Thu10/14/21 at 1904, This is Step 1 of nausea and vomiting management. If n ausea not resolved in 15 minutes, go to Step 2 prochlorperazine ( COMPAZINE). With dry hands, peel back foil backing and gently remove tablet. Do not push oral disintegrating tablet through foil backing. Administer immediately on tongue and ora l disintegrating tablet dissolves in seconds, then swallow with saliva. Liquid not required. rosuvastatin (CRESTOR) tablet 40 mg Given 10/15/2021 8:18 PM CONTRACT LOADER 40 mg 40 mg, Oral, EVERY EVENING, First dose on Thu10/14/21 at 2000 Given 10/14/2021 10:34 PM CONTRACT LOADER 40 mg senna-docusate (SENOKOT-S/PERICOLACE) 8. 6-50 MG per tablet 1 tablet 1 tablet, Oral, 2 TIMES DAILY PRN, const ipation, Starting on Thu10/14/21 at 1904, If no bowel movement in 24 hours, increase to 2 tablets P O. Hold for loose stools. This is the first step of a three step constipation tr eatment. Hold for loose stools. senna-docusate (SENOKOT-S/PERICOLACE) 8. 6-50 MG per tablet 2 tablet 2 tablet, Oral, 2 TIMES DAILY PRN, const ipation, Starting on Thu10/14/21 at 1904, Hold for loose stools. This is the first step of a thr ee step constipation treatment. Hold for loose stools. sertraline (ZOLOFT) tablet 50 mg Given 10/15/2021 10:11 PM CONTRACT LO[employer] 50 mg 50 mg, Oral, AT BEDTIME, First dose on Thu10/14/21 at 2300 Given 10/14/2021 10:34 PM CONTRACT LOADER 50 mg sodium chloride (PF) 0.9% PF flush 3 mL Given 10/16/2021 5:39 AM CONTRACT LOADER 3 mLs 3 mL, Intracatheter, EVERY 8 HOURS, First dose on Thu10/14/21 at 1930, to lock peripheral IV dormant line Given 10/15/2021 8:25 PM CONTRACT LOADER 3 mLs Given 10/15/2021 12:20 AM CONTRACT LOADER 3 mLs sodium chloride (PF) 0.9% PF flush 3 mL Given 10/15/2021 4:01 AM CONTRACT LOADER 3 mLs 3 mL, Intracatheter, EVERY 8 HOURS, First dose on Thu10/14/21 at 2030, to lock peripheral IV dormant line Given 10/14/2021 10:34 PM CONTRACT LOADER 3 mLs sodium chloride 0.9% infusion New Bag 10/15/2021 8:42 AM CONTRACT LOADER 150 mL/hr at 150 mL/hr, Intravenous, CONTINUOUS, 150 mL/hr IV for 2 hours prior to cardiac 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 Start at 0700 for inpatients. IF PATIENT IS RECEIVING RENAL DIALYSIS, RN to reduce rate of 0.9 % sodium chloride IV solution to 10 mL /hour (TKO) IV infusion to prevent fluid overload., Cardiac Pre-procedure, Starting on Thu10/15/21 at 0900, Until Thu10/15/21 at 1438 documented in this encounter Active and Recently Administered Medications Times are shown in CONTRACT [employer]. Scheduled Medication Order 10/14/2021 10/15/2021 10/16/2021 amLODIPine (NORVASC) tablet 10 mg 2132 (Given - Provider: Nessa Guerra, LETICIA) 2017 (Given - Provider: Elvira Velázquez RN) 10 mg, Oral, AT BEDTIME, First dose on Thu10/14/21 at 2130 aspirin (ASA) tablet 325 mg 0843 (Given - Provid er: Nydia Canseco RN) 0801 (Given - Provider: Nydia Canseco RN) 325 mg, Oral, DAILY, First dose on Thu10/15/21 at 0900 carvedilol (COREG) tablet 12.5 mg 1017 (Given - Provider: Nydia Canseco, LETICIA) 12.5 mg, Oral, 2 TIMES DAILY WITH MEALS, First dose (after last modification) on Thu10/16/21 at 0900 cloNIDine (CATAPRES) tablet 0.1 mg (CANCELED) 1251 (Given - Provider: Nydia Canseco, LETICIA) 0.1 mg, Oral, 2 TIMES DAILY, First dose (after last modification) on Thu10/16/21 at 1130 clotrimazole (LOTRIMIN) 1 % solution 010 7 (Given - Provider: Chloe Diaz RN)0843 (Given - Provider: Nydia Canseco RN)2213 (Given - Provider: Elvira Velázquez RN) 0805 (Given - Provider: Nydia Canseco RN) Topical, 2 TIMES DAILY, First dose on 10/15/21 at 0100, Apply to ears/affected area gabapentin (NEURONTIN) capsule 300 mg 2234 (Not Given - Provider: Chloe Diaz RN - Reason: Other - Comment: scanned but not given) 0014 (Given - Provider: Chloe Diaz RN)2018 (Given - Provider: Elvira Velázquez RN)2220 (Given - Provider: Elvira Velázquez RN) 300 mg, Oral, 2 TIMES DAILY, First dose on Thu10/14/21 at 2300 hydrALAZINE (APRESOLINE) tablet 25 mg 2133 (Given - Pr ovider: Alethea Guerra RN) 0843 (Given - Provider: Nydia Canseco RN)1600 (Given - Provider: Elvira Velázquez RN)2212 (Given - Provider: Elvira Velázquez RN) 0801 (Given - Provider: Nydia Canseco RN)1600 (Canceled Entry - Provider: Orders Generic Provider - Comment: Automatically canceled at discontinue of medication order) 25 mg, Oral, 3 TIMES DAILY, First dose on Thu10/14/21 at 2200 hydrALAZINE (APRESOLINE) tablet 50 mg 2133 (Given - Pr ovider: Alethea Guerra RN) 0844 (Given - Provider: Nydia Canseco RN)1600 (Given - Provider: Elvira Velázquez RN)2211 (Given - Provider: Elvira Velázquez RN) 0801 (Given - Provider: Nydia Canseco RN)1600 (Canceled Entry - Provider: Orders Generic Provider - Comment: Automatically canceled at discontinue of medication order) 50 mg, Oral, 3 TIMES DAILY, First dose on Thu10/14/21 at 2200 insulin bolus from AMBULATORY PUMP 0106 (Not Given - Provider: Chloe Diaz RN - Reason: Other - Comment: pt managing his own insuin pump)0845 (Given - Provider: Nydia Canseco RN - Comment: 0.82)1315 (Not Given - Provider: Nydia Canseco RN - Reason: NPO) 1018 (Given - Provider: Nydia Canseco RN)1250 (Given - Provider: Nydia Canseco RN)1630 (Canceled Entry - Provider: Orders Generic Provider - Comment: Automatically canceled at discontinue of medication order) Insulin type in pump reservoir: insulin lispro (HumaLOG), Bolus-Correction: 0000 - 0500: 1 unit(s) to lower blood glucose by 35 mg/dL 0500 - 2130: 1 unit(s) to lower blood glucose by 25 mg/dL 2130 - 0000: 1 unit(s) to lower blood glucose by 35 mg/dL 1704 (Not Given - Provider: Elvira Velázquez RN - Reason: Other - Comment: pt manages self pump)2214 (Not Given - Provider: Elvira Velázquez RN - Reason: Other - Comment: pt self administer through pump) insulin bolus from AMBULATORY PUMP 0844 (Not Given - Provider: Nydia Canseco RN - Reason: NPO)1316 (Not Given - Provider: Nydia Canseco RN - Reason: NPO)1705 (Not Given - Provider: Elvira Velázquez RN - Reason: Other - Comment: pt has pump) 1018 (Given - Provider: Nydia Canseco RN - Comment: pt administered 25 units)1200 (Canceled Entry - Provider: Orders Generic Provider - Comment: Automatically canceled at discontinue of medication order) Insulin type in pump reservoir: insulin lispro (HumaLOG), CARB RATIO and times: 0000 - 0500: 1 unit for 4 grams of carbohydrate 0500 - 1200: 1 units for 3 grams of carbohydrate 1200 - 1630: 1 units for 5 grams of carbohydrate 1630 - 2130: 1 u nits for 3 grams of carbohydrate 2130 - 0000: 1 units for 5 grams of carbohydrate insulin lispro (HumaLOG) 100 UNIT/ML vial for filling pump r eservoir 0107 (Hold - Provider: Chloe Diaz RN - Reason: Other - Comment: Not done) Device, SEE ADMIN INSTRUCTIONS, Starting on Thu10/14/21 at 2200, Scan vial and chart when filling insulin pump reservoir isosorbide mononitrate (IMDUR) 24 hr tablet 60 mg 2233 (Given - Provider: Alethea Guerra RN) 1601 (Given - Provider: Elvira Velázquez RN) 1630 (Canc eled Entry - Provider: Orders Generic Provider - Comment: Automatically canceled at discontinue of medication order) 60 mg, Oral, DAILY, First dose on 02/28 at 2200, DO NOT CRUSH. Can split tablet in half along score alden. lisinopril (ZESTRIL) tablet 10 mg 2132 (Given - Provider: Nessa Guerra RN) 2210 (Given - Provider: Elvira Velázquez RN) 10 mg, Oral, AT BEDTIME, First dose on Thu10/14/21 at 2200 rosuvastatin (CRESTOR) tablet 40 mg 2233 (Given - Prov ider: Alethea Guerra RN) 2017 (Given - Provider: Elvira Velázquez RN) 40 mg, Oral, EVERY EVENING, First dose on Thu10/14/21 at 2000 sertraline (ZOLOFT) tablet 50 mg 2233 (Given - Provider: Lucretia Guerra RN) 2210 (Given - Provider: Elvira Velázquez RN) 50 mg, Oral, AT BEDTIME, First dose on Thu10/14/21 at 2300 sodium chloride (PF) 0.9% PF flush 3 mL 2051 (Canceled Entry - Provider: Alethea Guerra RN) 0020 (Given - Provider: Mesha Covarrubias)0740 (Not Given - Provider: Nydia Canseco RN - Reason: Other)1315 (Not Given - Provider: Nydia Canseco RN - Reason: Other)2024 (Given - Provider: Elvira Velázquez RN) 0539 (Given - Provider: Navi Roe, LETICIA)1250 (Not Given - Provider: Nydia Canseco RN - Reason: Other) 3 mL, Intracatheter, EVERY 8 HOURS, Firs t dose on Thu10/14/21 at 1930, to lock peripheral IV dormant line sodium chloride (PF) 0.9% PF flush 3 mL (CANCELED) 223 4 (Given - Provider: Alethea Guerra, RN) 0401 (Given - Provider: Navi bear RN)1400 (Not Given - Provider: Nydia Canseco RN - Reason: Other) 3 mL, Intracatheter, EVERY 8 HOURS, Firs t dose on Thu10/14/21 at 2030, to lock peripheral IV dormant line Continuous Medication Order 10/14/2021 10/15/2021 10/16/2021 insulin basal rate from AMBULATORY PUMP 0420 (Not Given - Provider: Chloe Diaz RN - Reason: Other - Comment: Pt. managed) Insulin type in pump reservoir: insulin lispro (HumaLOG), Basal Rates and Start/End times: 0000 - 0500 : 1.1 units/hour, ?? 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 Start at 0700 for inpatients. IF PATIENT I S RECEIVING RENAL DIALYSIS, RN to reduce rate of 0.9 % sodium chloride IV solution to 10 mL /hour (TKO) IV infusion to prevent fluid overload., Cardiac Pre-procedure, Starting on Thu10/15/21 at 0900, Until Thu10/15/21 at 1438 PRN Medication Order 10/14/2021 10/15/2021 10/16/2021 acetaminophen (TYLENOL) Suppository 650 mg 650 mg, Rectal, EVERY 4 HOURS PRN, mild pain, Starting on Thu10/14/21 at 1901, Maximum acetaminophen dose from all sources = 75 mg/kg/day not to exceed 4 grams/day. acetaminophen (TYLENOL) tablet 650 mg (CANCELED) 0014 (Given - Provider: Chloe Diaz RN)0355 (Given - Provider: Navi Roe, RN)1706 (Given - Provider: Elvira Velázquez RN) 650 mg, Oral, EVERY 4 HOURS PRN, mild pa in, Starting on Thu10/14/21 at 1901, Maximum acetaminophen dose from all sources = 75 mg/kg/day not to exceed 4 grams/day. acetaminophen (TYLENOL) tablet 650 mg 22 (Given - Provider: Elvira Velázquez RN) 08 (Given - Provider: Nydia Canseco RN) 650 mg, Oral, EVERY 4 HOURS PRN, mild pa in, fever, Starting on Thu10/15/21 at 1406, Post-procedurally for CAR electrophysiology studies. Maximum acetaminophen dose from all sources = 75 mg/kg/day not to exceed 4 grams/day. alum & mag hydroxide-simethicone (MAALOX) suspension 30 mL 30 mL, Oral, EVERY 4 HOURS PRN, indigest ion, Starting on Thu10/14/21 at 1901, Shake well. bisacodyl (DULCOLAX) Suppository 10 mg 10 mg, Rectal, DAILY PRN, constipation, Starting on Thu10/14/21 at 1904, Hold for loose stools. This is the third step of a three step constipation treatment. Hold for loose stools. bupivacaine (MARCAINE) 0.25% preservative free injection (CA NCELED) 1248 (Given - Provider: Alvarado Syed MD) ONCE PRN, Starting on Thu10/15/21 at 1248, Cardiac Intra-procedur e ceFAZolin (ANCEF) intermittent infusion 2 g in 100 mL dextrose PRE-MIX (COMPLETED) 1228 (New Bag - Provider: Yfn Anderson) Routine, CONTINUOUS PRN, Starting on Thu10/15/21 at 1228, Cardiac Intra-procedure dextrose 50 % injection 25-50 mL(Linked Group 1) 25-50 mL, Intravenous, EVERY 15 MIN PRN, low blood sugar, Administer over 1-5 Minutes, Starting on Thu10/14/21 at 1906, Use if have IV access, BG less than 70 mg/dL and meet dose criteria below: Dose if conscious and alert (or disorientated) a nd NPO = 25 mL Dose if unconscious / not alert = 50 mL Give first dose for initial blood glucose less than 70 mg/dL. If blood glucose at 15 minute recheck is less than or equal to 100 mg/dL continue to administer carbohydrate treatment every 15 minutes, as needed, based on blood glucose and assessment parameters until blood glucose level is above 100 mg/dL. Vesicant. fentaNYL (PF) (SUBLIMAZE) injection (CANCELED) 1234 (Given - Provider: Yfn Anderson)1243 (Given - Provider: Yfn Anderson) ONCE PRN, Administer over 3-5 Minutes, S tarting on Thu10/15/21 at 1234, Cardiac Intra-procedure glucagon injection 1 mg(Linked Group 1) 1 mg, Subcutaneous, EVERY 15 MIN PRN, lo w blood sugar, May repeat x 1 only, Starting on Thu10/14/21 at 1906, May give SQ or IM. ONLY use glucagon IF patient has NO IV access AND is UNABLE to swallow AND blood glucose is LESS than or EQUAL to 50 mg/dL. glucose gel 15-30 g(Linked Group 1) 15-30 g, Oral, EVERY 15 MIN PRN, low blo od sugar, Starting on Thu10/14/21 at 1906, Give first dose for initial blood glucose less than 70 mg/dL per the dosing instructions below. If blood glucose at 15 m inute rechecks is still less than or equ al to 100 mg/dL, continue to administer doses per blood glucose parameters every 15 minutes, as needed, until blood glucose level is above 100 mg/dL. Dosing Instr uctions: ~If patient is conscious and ab le to swallow and NO enteral tube For initial BG 51-69mg/dL OR 15 minute recheck BG 51- 100 mg/dL - give 15 g For BG less than or equal to 50 mg/dL - give 30 g ~ If Enteral tube For initial BG 51-69mg/d L OR 15 minute recheck BG 51- 100 mg/dL - give apple juice 120 mL (4 oz or 15 g of CHO) via enteral tube For BG less than or equal to 50 mg/dL - Give apple juice 240 mL (8 oz or 30 g of CHO) via enteral tube ~Oral gel is preferable for conscious and able to swallow patient. ~IF gel unavailable or patient refuses may provide apple juice per Enteral tube dosing instructions. Document juice on I and O flowsheet. HOLD: enoxaparin (LOVENOX) Post Procedure Medication(s) to hold: enoxaparin (LOVEN OX), Parameter for hold (doses,days,conditions) : Other (see admin instructions), Surgery or Procedure Date: 10/15/2021, HOLD, Starting on Thu10/15/21 at 1406, Until Thu10/16/21 at 1636, HOLD enoxaparin (LO VENOX) Post Procedure until 3 days post procedure. HOLD: heparin (IV or Subcutaneous) Post Procedure Medication(s) to hold: heparin (IV or goode bcutaneous), Parameter for hold (doses,days,conditions) : Other (see admin instructions), Surgery or Procedure Date: 10/15/2021, HOLD, Starting on Thu10/15/21 at 140 6, Until Thu10/16/21 at 1636, HOLD Hepari n (IV or Subcutaneous) Post Procedure until 3 days post procedure. HOLD: metformin and metformin containing medications on day of procedure and 48 hours after IV contrast given Medication(s) to hold: Metformin (GLUCOP CHIQUI, GLUMETZA, FORTAMET, RIOMET) and metformin containing medications: (KAZANO, METAGLIP, GLUCOVANCE, AVANDAMET, XIGDUO XR, JANUMET, JANUMET XR, JENTADUETO, PRAN DIMET, KOMBIGLYZE XR, INVOKAMET, ACTOPLU S MET, ACTOPLUS MET XR), Parameter for hold (doses,days,conditions) : Other (see admin instructions), Hours or days to hold med before/after procedure/surgery: OT HER (for 48 hours post procedure), Surge ry or Procedure Date: 10/15/2021, HOLD, Starting on Thu10/15/21 at 1406, Until Thu10/16/21 at 1636, Hold metformin (GLUCOPHAGE, GLUMETZA, FORTAMET, RIOMET) and metfor min containing medications: alogliptin/m etformin (KAZANO), glipizide/metformin (METAGLIP), glyburide/metformin (GLUCOVANCE), rosiglitazone/metformin (AVANDAMET), dapagliflozin/metformin (XIGDUO XR), sit agliptin/metformin (JANUMET, JANUMET XR) , linagliptin/metformin (JENTADUETO), repaglinide/metformin (PRANDIMET), saxagliption/metformin (KOMBIGLYZE XR), canagliflozin/metformin (INVOKAMET), pioglitazone /metformin (ACTOPLUS MET, ACTOPLUS MET X R). If patient was on one of these medications pre-procedure, continue to HOLD for 48 hours post-procedure if patient received IV contrast. hydrALAZINE (APRESOLINE) injection 10 mg 2024 (Given - Provider: Elvira Velázquez RN) 075 (Given - Provider: Nydia Canseco RN) 10 mg, Intravenous, EVERY 4 HOURS PRN, h igh blood pressure, give for SBP > 170, Starting on Thu10/14/21 at 1906 HYDROmorphone (PF) (DILAUDID) injection 0.2 mg 0.2 mg, Intravenous, EVERY 2 HOURS PRN, severe pain, IF unable to take PO. Hold while on [employer]., Starting on Thu10/14/21 at 1904 lidocaine (LMX4) cream Topical, EVERY 1 HOUR PRN, pain, with VA D insertion, Starting on Thu10/14/21 at 1901, Apply at least 30 minutes prior to VAD insertion in divided doses as needed for size of site for insertion. MAX Dose: 2.5 g (?? of 5 g tube) Do NOT give if p atient has a history of allergy to any local anesthetic or any dimitris product. Do NOT use both lidocaine intradermal/subcutaneous injection and the lidocaine cream on the same site. lidocaine 1 % 0.1-1 mL 0.1-1 mL, Other, EVERY 1 HOUR PRN, mild pain with VAD insertion, Starting on Thu10/14/21 at 1901, MAX dose 1 mL subcutaneous OR intradermal along the side of the vein in divided doses as needed for VAD i nsertion. Do NOT give if patient has a h istory of allergy to any local anesthetic or any dimitris product. Do NOT use both lidocaine intradermal/subcutaneous injection and the lidocaine cream on the same site. lidocaine 1 % (CANCELED) 1249 (Given - P rovider: Alvarado Syed MD)1255 (Given - Provider: Alvarado Syed MD) ONCE PRN, Starting on Thu10/15/21 at 1249, Cardiac Intra-procedur e medication instruction CONTINUOUS PRN, Starting on Thu10/14/21 a t 1901, Until Thu10/16/21 at 1636, No IV fluids melatonin tablet 3 mg 0148 (Given - Prov ider: Chloe Diaz, RN)2220 (Given - Provider: Elvira Velázquez RN) 3 mg, Oral, AT BEDTIME PRN, sleep, Starting on Thu10/15/21 at 013 6 midazolam (VERSED) injection (CANCELED) 1234 (Given - Provider: Yfn Anderson)1244 (Given - Provider: Yfn Anderson) Administer over 2 Minutes, ONCE PRN, Sta rting on Thu10/15/21 at 1234, Cardiac Intra-procedure naloxone (NARCAN) injection 0.2 mg(Linked Group 2) 0.2 mg, Intravenous, EVERY 2 MIN PRN, op ioid reversal, Starting on Thu10/14/21 at 1920, Administer intravenous route when available and notify provider when administered. For unintended sedation or respi ratory depression if all of the below cr iteria are met: ~ respiratory rate LESS than or EQUAL to 8. ~SaO2 less than 92% and or/end-tidal CO2 is greater than 50. ~ the patient is receiving an opioid, has unintended sedations assessed as RASS ( -3), and is currently not on mechanical ventilation. RASS scale moderate (-3) is movement or eye opening to voice but no eye contact. Patient Monitoring Once the patient has demonstrated a response to t he naloxone, continue to monitor respiratory rate, depth, oxygen saturation and end-tidal CO2 (if available) every 15 minutes x 2, then every 30 minutes x 2, then every 1 hour x 1 after each naloxone do se. Consider transfer to ICU if patient respiratory parameters have not improved after 4 naloxone doses. naloxone (NARCAN) injection 0.2 mg(Linked Group 2) 0.2 mg, Intramuscular, EVERY 2 MIN PRN, opioid reversal, Starting on Thu10/14/21 at 1920, Administer intramuscular if an intravenous route is not available and notify provider when administered. For unin tended sedation or respiratory depressio n if all of the below criteria are met: ~ respiratory rate LESS than or EQUAL to 8. ~SaO2 less than 92% and or/end-tidal CO2 is greater than 50. ~ the patient is receiving an opioid, has unintended pati tions assessed as RASS (-3), and is currently not on mechanical ventilation. RASS scale moderate (-3) is movement or eye opening to voice but no eye contact. K[place] ent Monitoring Once the patient has demo nstrated a response to the naloxone, continue to monitor respiratory rate, depth, oxygen saturation and end-tidal CO2 (if available) every 15 minutes x 2, then ev eldon 30 minutes x 2, then every 1 hour x 1 after each naloxone dose. Consider transfer to ICU if patient respiratory parameters have not improved after 4 naloxone doses. naloxone (NARCAN) injection 0.4 mg(Linked Group 2) 0.4 mg, Intravenous, EVERY 2 MIN PRN, op ioid reversal, Starting on Thu10/14/21 at 0, Administer intravenous route when available and notify provider when administered. For unintended sedation or respi ratory depression if all of the below cr iteria are met: ~ respiratory rate LESS than or EQUAL to 8. ~ SaO2 less than 92% and or/end-tidal CO2 is greater than 50. ~ the patient is receiving an opioid, edmonds s unintended sedation assessed as RASS ( -4) or (-5) and patient is currently not on mechanical ventilation. RASS scale (-4) is deep sedation with no response to voice but movement or eye opening to phys ical stimulation. RASS scale (-5) is klaus rousable. Patient Monitoring Once the patient has demonstrated a response to the naloxone, continue to monitor respiratory rate, depth, oxygen saturation and end- tidal CO2 (if available) every 15 minute s x 2, then every 30 minutes x 2, then every 1 hour x 1 after each naloxone dose. Consider transfer to ICU if patient respiratory parameters have not improved after 4 naloxone doses. naloxone (NARCAN) injection 0.4 mg(Linked Group 2) 0.4 mg, Intramuscular, EVERY 2 MIN PRN, opioid reversal, Starting on Thu10/14/21 at 1920, Administer intramuscular if an intravenous route is not available and notify provider when administered. For unin tended sedation or respiratory depressio n if all of the below criteria are met: ~ respiratory rate LESS than or EQUAL to 8. ~ SaO2 less than 92% and or/end- tidal CO2 is greater than 50. ~ the patient is receiving an opioid, has unintended sed ation assessed as RASS (-4) or (-5) and patient is currently not on mechanical ventilation. RASS scale (-4) is deep sedation with no response to voice but movemen t or eye opening to physical stimulation . RASS scale (-5) is unarousable. Patient Monitoring Once the patient has demonstrated a response to the naloxone, continue to monitor respiratory rate, depth, ox ygen saturation and end-tidal CO2 (if av ailable) every 15 minutes x 2, then every 30 minutes x 2, then every 1 hour x 1 after each naloxone dose. Consider transfer to ICU if patient respiratory parameters have not improved after 4 naloxone doses. nitroGLYcerin (NITROSTAT) sublingual tablet 0.4 mg 0.4 mg, Sublingual, EVERY 5 MIN PRN, syed st pain, Starting on Thu10/14/21 at 2020, Maximum 3 doses in 15 minutes. Notify provider if no relief after 3 doses. IF patient has received sildenafil (VIAGRA/REV ATIO), avanafil (STENDRA) or vardenafil (LEVITRA/STAXYN) within the last 24 hours, OR tadalafil (CIALIS/ADCIRCA) within the last 48 hours inform provider. If patient is still having acute angina requiri ng treatment, an alternative treatment o ption may be used such as: IV beta- hong [2.5 mg - 5 mg metoprolol (LOPRESSOR)] if ordered by a provider. ondansetron (ZOFRAN) injection 4 mg(Linked Group 3) 4 mg, Intravenous, EVERY 6 HOURS PRN, na usea, vomiting, Administer over 2-5 Minutes, Starting on Thu10/14/21 at 1904, Give IF patient unable to tolerate oral medication. This is Step 1 of nausea and vomi ting management. If nausea not resolved in 15 minutes, go to Step 2 prochlorperazine (COMPAZINE). Irritant. ondansetron (ZOFRAN-ODT) ODT tab 4 mg(Linked Group 3) 4 mg, Oral, EVERY 6 HOURS PRN, nausea, v omiting, Starting on Thu10/14/21 at 1904, This is Step 1 of nausea and vomiting management. If nausea not resolved in 15 minutes, go to Step 2 prochlorperazine (CO MPAZINE). With dry hands, peel back foil backing and gently remove tablet. Do not push oral disintegrating tablet through foil backing. Administer immediately on tongue and oral disintegrating tablet di ssolves in seconds, then swallow with saliva. Liquid not require d. oxyCODONE (ROXICODONE) tablet 5-10 mg 5-10 mg, Oral, EVERY 3 HOURS PRN, other, pain control or improvement in physical function. Hold dose for analgesic side effects., Starting on Thu10/14/21 at 1904, Start with the lowest dose. May adjust d ose by 5 mg every 3 hours as needed. Not shraddha provider to assess for uncontrolled pain or analgesic side effects. 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 oxyCODONE-acetaminophen (PERCOCET) 5-325 MG per tablet 1 tablet 1 tablet, Oral, EVERY 4 HOURS PRN, other , mild or moderate pain, Starting on Thu10/15/21 at 1406, Maximum acetaminophen dose from all sources= 75 mg/kg/day not to exceed 4 grams polyethylene glycol (MIRALAX) Packet 17 g 17 g, Oral, DAILY PRN, constipation, Sta rting on Thu10/14/21 at 1904, Give in 8oz of water, juice, or soda. Hold for loose stools. This is the second step of a three step constipation treatment. 1 Packet = 17 grams. Mix each gram with at least 1/2 ounce (15 mL) of water - 8 ounces for 17 g dose, 4 ounces for 8.5 g dose, 2 ounces for 4 g dose. Follow with the same volume of water. Hold for loose stools unless being administered as part of a bowel prep regimen or bow el clean out. senna-docusate (SENOKOT-S/PERICOLACE) 8. 6-50 MG per tablet 1 tablet(Linked Group 4) 1 tablet, Oral, 2 TIMES DAILY PRN, const ipation, Starting on Thu10/14/21 at 1904, If no bowel movement in 24 hours, increase to 2 tablets PO. Hold for loose stools. This is the first step of a three step constipation treatment. Hold for loose stools. senna-docusate (SENOKOT-S/PERICOLACE) 8. 6-50 MG per tablet 2 tablet(Linked Group 4) 2 tablet, Oral, 2 TIMES DAILY PRN, const ipation, Starting on Thu10/14/21 at 1904, Hold for loose stools. This is the first step of a three step constipation treatment. Hold for loose stools. sodium chloride (PF) 0.9% PF flush 3 mL 3 mL, Intracatheter, EVERY 1 MIN PRN, li ne flush, other, to ensure patency or to lock dormant line, Starting on Thu10/14/21 at 1901 Linked Groups Order Group 1: glucose gel 15-30 gJump to med 15-30 g, Oral, EVERY 15 MIN PRN, low blo od sugar, Starting on Thu10/14/21 at 1906
Give first dose for initial blood glucose less than 70 mg/dL per the dosing instructions below. If blo od glucose at 15 minute rechecks is stil l less than or equal to 100 mg/dL, continue to administer doses per blood glucose parameters every 15 minutes, as needed, until blood glucose level is above 100 m g/dL. Dosing Instructions:&nb sp;~If patient is conscious and able to swallow and NO enteral tube For initial BG 51-69mg/dL OR 15 minute recheck BG 51- 100 mg/dL - give 15 g For BG less than or equal to 50 mg/dL - give 30 g ~ If Enteral tube For initial BG 51-69mg/dL OR 15 minute recheck BG 51- 100 mg/dL - give apple juice 120 mL (4 oz or 15 g of CHO) via enteral tube For BG les s than or equal to 50 mg/dL - Give apple juice 240 mL (8 oz or 30 g of CHO) via enteral tube ~Oral gel is preferable for conscious and able to swallo w patient. ~IF gel unavailable or patient refuses may provide apple juice per Enteral tube dosing instructions. Document juice on I and O flowsheet.
Or dextrose 50 % injection 25-50 mLJump to med 25-50 mL, Intravenous, EVERY 15 MIN PRN, low blood sugar, Administer over 1-5 Minutes, Starting on Thu10/14/21 at 1906
Use if have IV access, BG less than 70 mg/dL and meet dose criteria below:& amp;nbsp;Dose if conscious and alert (or disorientated) and NPO = 25 mL Dose if unconscious / not alert = 50 mL Give first dose for initial blood glucose less than 70&nbs p; mg/dL. If blood gluco se at 15 minute recheck is less than or equal to 100 mg/dL continue to administer carbohydrate treatment every 15 minutes, as needed, based on blood g lucose and assessment parameters until b lood glucose level is above 100 mg/dL. Vesicant.
Or glucagon injection 1 mgJump to med 1 mg, Subcutaneous, EVERY 15 MIN PRN, lo w blood sugar, May repeat x 1 only, Starting on Thu10/14/21 at 1906
May give SQ or IM. ONLY use glucagon IF patient has NO IV access AND is UNABLE to swal low AND blood glucose is LESS than or EQ UAL to 50 mg/dL.
Group 2: naloxone (NARCAN) injection 0.2 mgJump to med 0.2 mg, Intravenous, EVERY 2 MIN PRN, op ioid reversal, Starting on Thu10/14/21 at 1920
Administer intravenous route when available and notify provider when administered. For unintended sedation or respiratory depression if al l of the below criteria are met: ~ respiratory rate LESS than or EQUAL to 8. ~SaO2 less than 92% and or/end- tidal CO2 is greater than 50.&n bsp;~ the patient is receiving an opioid , has unintended sedations assessed as RASS (-3), and is currently not on mechanical ventilation. RASS scale moderate (-3) is movement or eye o pening to voice but no eye contact.&nbsp ; Patient Monitoring Once the patient has demonstrated a response to the naloxone, continue to monitor respiratory rate, depth, oxygen satur ation and end-tidal CO2 (if available) e very 15 minutes x 2, then every 30 minutes x 2, then every 1 hour x 1 after each naloxone dose. Consider transfer to ICU if patient respiratory parameters have not improved after 4 na loxone doses.
Or naloxone (NARCAN) injection 0.4 mgJump to med 0.4 mg, Intravenous, EVERY 2 MIN PRN, op ioid reversal, Starting on Thu10/14/21 at 1920
Administer intravenous route when available and notify provider when administered. For unintended sedation or respiratory depression if al l of the below criteria are met: ~ respiratory rate LESS than or EQUAL to 8. ~ SaO2 less than 92% and or/end- tidal CO2 is greater than 50.&n bsp;~ the patient is receiving an opioid , has unintended sedation assessed as RASS (-4) or (-5) and patient is currently not on mechanical ventilation. RASS scale (-4) is deep sedatio n with no response to voice but movement or eye opening to physical stimulation. RASS scale (-5) is unarousable. Patient Monitoring Onc e the patient has demonstrated a respons e to the naloxone, continue to monitor respiratory rate, depth, oxygen saturation and end-tidal CO2 (if available) every 15 minutes x 2, then every 30 minutes x 2 , then every 1 hour x 1 after each nalox one dose. Consider transfer to ICU if patient respiratory parameters have not improved after 4 naloxone doses.
Or naloxone (NARCAN) injection 0.2 mgJump to med 0.2 mg, Intramuscular, EVERY 2 MIN PRN, opioid reversal, Starting on Thu10/14/21 at 1920
Administer intramuscular if an intravenous route is not available and notify provider when administered.& amp;nbsp;For unintended sedation or resp iratory depression if all of the below criteria are met: ~ respiratory rate LESS than or EQUAL to 8. ~SaO2 less than 92% and or/end-tidal CO2 i s greater than 50. ~ the patient is receiving an opioid, has unintended sedations assessed as RASS (-3), and is currently not on mechanical ventilation. RASS scale moderate ( -3) is movement or eye opening to voice but no eye contact. Patient Monitoring Once the patient has demonstrated a response to the naloxone, continue to monitor respiratory r ate, depth, oxygen saturation and end-ti marquis CO2 (if available) every 15 minutes x 2, then every 30 minutes x 2, then every 1 hour x 1 after each naloxone dose. Consider transfer to U if patient respiratory parameters have not improved after 4 naloxone doses.
Or naloxone (NARCAN) injection 0.4 mgJump to med 0.4 mg, Intramuscular, EVERY 2 MIN PRN, opioid reversal, Starting on Thu10/14/21 at 1920
Administer intramuscular if an intravenous route is not available and notify provider when administered.& amp;nbsp;For unintended sedation or resp iratory depression if all of the below criteria are met: ~ respiratory rate LESS than or EQUAL to 8. ~ SaO2 less than 92% and or/end-tidal CO2 i s greater than 50. ~ the patient is receiving an opioid, has unintended sedation assessed as RASS (-4) or (-5) and patient is currently not on mechanical ventilation. RASS sc jason (-4) is deep sedation with no respon se to voice but movement or eye opening to physical stimulation. RASS scale (-5) is unarousable. Patient Monitoring Once the patient has de monstrated a response to the naloxone, continue to monitor respiratory rate, depth, oxygen saturation and end-tidal CO2 (if available) every 15 minutes x 2, t hen every 30 minutes x 2, then every 1 h our x 1 after each naloxone dose. Consider transfer to ICU if patient respiratory parameters have not improved after 4 naloxone doses.
Group 3: ondansetron (ZOFRAN-ODT) ODT tab 4 mgJump to med 4 mg, Oral, EVERY 6 HOURS PRN, nausea, v omiting, Starting on Thu10/14/21 at 1904
This is Step 1 of nausea and vomiting management. If nausea not resolved in 15 minutes, go to Step 2 prochlorperazine (COMPAZINE).&nbs p;With dry hands, peel back foil backing and gently remove tablet. Do not push oral disintegrating tablet through foil backing. Administer immediately on tong ue and oral disintegrating tablet dissol ves in seconds, then swallow with saliva. Liquid not required.
Or ondansetron (ZOFRAN) injection 4 mgJump to med 4 mg, Intravenous, EVERY 6 HOURS PRN, na usea, vomiting, Administer over 2-5 Minutes, Starting on Thu10/14/21 at 1904
Give IF patient unable to tolerate oral medication. This is Step 1 o f nausea and vomiting management. If jose alfredo sea not resolved in 15 minutes, go to Step 2 prochlorperazine (COMPAZINE). Irritant.
Group 4: senna-docusate (SENOKOT-S/PERICOLACE) 8.6-50 MG per tablet 1 tabletJump to med 1 tablet, Oral, 2 TIMES DAILY PRN, const ipation, Starting on Thu10/14/21 at 1904
If no bowel movement in 24 hours, increase to 2 tablets PO. Hold for loose stools. Th is is the first step of a three step con stipation treatment. Hold for loose stools.
Or senna-docusate (SENOKOT-S/PERICOLACE) 8.6-50 MG per tablet 2 tabletJump to med 2 tablet, Oral, 2 TIMES DAILY PRN, const ipation, Starting on Thu10/14/21 at 1904
Hold for loose stools. This is the first step of a three step constipation treatment. Hold for loose stools.
documented in this encounter Care Teams Supervisor Shipfitters Relationship Specialty Start Date End Date Anatoliy Jackson, PCP - General 05/14/12 Heath More PCP - Internal Medicine INTERNAL MEDICINE - 01/06/14 MD Andreas ENDOCRINOLOGY, DIABETES [facility] [address] [place] [address] [place] [phone] Peter Gipson PCP - Urology 04/02/15 MD Jordan [facility] [address] [place] [address] [address] [place], [place] [id number] Peter Mcmullen Assigned Musculoskeletal 06/01/20 MD Mahendra Provider [facility] [facility] [address] [place] [address] Giuliana Gomez Assigned Heart and 06/30/21 A, METAL CANS SUPERVISOR PARK ACTIVITIES COORDINATOR Vascular Provider [address] [place] [id number] Giuliana Gomez Nurse Practitioner Cardiovascular Disease 2 A, METAL CANS SUPERVISOR PARK ACTIVITIES COORDINATOR [address] [place] [phone] Fidencio Solis MD MD Cardiovascular Disease 08/21/[address], [facility] [address] [place] [address] documented as of this encounter
--- OUTSIDE RECORDS SUMMARY | 2022-05-02 12:22 | XMS_ITS | Encounter Summary ---
:1950 Author Organization [place] Address [address] [facility] [place] [address] Care Team Providers Name Role Phone Anatoliy Jackson MD Primary Care Provider Heath More MD Unavailable Peter Gipson MD Unavailable Peter Mcmullen MD Unavailable Giuliana Gomez APRN CIVIL ESTIMATOR Unavailable [phone] Giuliana Gomez APRN CIVIL ESTIMATOR Unavailable [phone] Fidencio Solis MD Unavailable Reason for Visit Reason Onset Date Comments Refill Request 11/25/2021 Encounter Details Date Type Department Care Team Description [facility] [address] [facility] [address] [place] [address] Social History Tobacco Use Types Packs/Day Years [...] this encounter Miscellaneous Notes Telephone Encounter - Laureen Emerson RN - 11/25/2021 11:30 AM CDT Medication Refilled: Imdur Last office visit: 10/29/21 with Fadi Gomez CNP Last Labs/EKG: Next office visit: NA Pharmacy sent to: 01/10/2022 orders in wali Emerson RN documented in this encounter Plan of Treatment Upcoming Encounters Date Type Specialty Care Team Description 05/15/2022 Hospital Encounter Surgery Singh Torres MD [facility] [address] [place] [address] [place] [id number] (Rosalva rk) 05/15/2022 Surgery Surgery Neo Torres MD BLEPHAROPLASTY BILATERAL [facility] PTOSIS REPAIR BILATERAL [address] [place] [address] [place] [id number] (Wo rk) 06/25/2022 Ancillary Procedure Cardiology Kirk Silver MD [address] [place] [id number] (Rosalva rk) Scheduled Procedures Name Priority Associated Diagnoses Date/Time REPAIR, PTOSIS, BILATERAL, Dermatochalas is 05/15/2022 7:30 AM CDT WITH BILATERAL BLEPHAROPLASTY 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 REPAIR, ECTROPION, EYE, Dermatochalasis 05/15/2022 7:30 AM CDT BILATERAL 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 documented as of this encounter Visit Diagnoses Diagnosis Essential hypertension - Primary Unspecified essential hypertension 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 [address] [place] [address] [address] [place] [address] Peter Mcmullen Assigned Musculoskeletal 06/01/20 MD Mahendra Provider [facility] [facility] [address] [place], [place] [address] Giuliana Gomez Assigned Heart and 06/30/21 A, SYSTEM SUPPORT SPECIALIST CIVIL ESTIMATOR Vascular Provider [address] [place] [address] Giuliana Gomez Nurse Practitioner Cardiovascular Disease 2 A, SYSTEM SUPPORT SPECIALIST CIVIL ESTIMATOR [address] [place] [address] Fidencio Solis MD MD Cardiovascular Disease 08/21/[address], [place] [address] [place] [address] documented as of this encounter
--- OUTSIDE RECORDS SUMMARY | 2022-05-02 12:22 | XMS_ITS | Encounter Summary ---
:1950 Author Organization [place] Address [address] [facility] [place] [address] Care Team Providers Name Role Phone Anatoliy Jackson MD Primary Care Provider Heath More MD Unavailable Peter Gipson MD Unavailable Peter Mcmullen MD Unavailable Giuliana Gomez APRN LIME SUPERVISOR Unavailable Giuliana Gomez APRN LIME SUPERVISOR Unavailable [phone] Fidencio Solis MD Unavailable Reason for Visit Reason Onset Date Comments Implantable Devices 11/01/2021 remote monitor quest ion Encounter Details Date Type Department Care Team Description 11/01/2021 Telephone [facility] Jesica Vazquez Impla ntable Devices [facility] LETICIA Conklin (remote onitor question Heart Care ) [address] [facility] [address] [facility] [address] [place] [phone] Social History Tobacco Use Types Packs/Day Years [...] this encounter Miscellaneous Notes Telephone Encounter - Jesica Vazquez RN - 11/01/2021 1:08 PM CDT Pt left VM, he wants to know if he should bring his remote monitor with him on a 4-5 day trip. Called pt back, no answer, left VM that he should bring it with if he is going to be gone longer than 2 weeks. Left device clinic RN number in case pt has more questions. documented in this encounter Plan of Treatment Upcoming Encounters Date Type Specialty Care Team Description 05/15/2022 Hospital Encounter Surgery Singh Torres MD [facility] [address] [place] [place] [phone] (Wo rk) 05/15/2022 Surgery Surgery Neo Torres MD BLEPHAROPLASTY BILATERAL [facility], [facility] & [facility] PTOSIS REPAIR BILATERAL [address] [place] [address] [place] [id number] [phone] (Wo rk) 06/25/2022 Ancillary Procedure Cardiology Kirk Silver MD [address] [place] [phone] (Wo rk) Scheduled Procedures Name Priority Associated [...] on filedocumented in this encounter Care Teams Cook Dessert Relationship Specialty Start Date End Date Anatoliy Jackson PCP - General 05/14/12 Heath More PCP - Internal Medicine INTERNAL MEDICINE - 01/06/14 MD Andreas ENDOCRINOLOGY, DIABETES [facility] [place] [address] [place] [address] Peter Gipson PCP - Urology 04/02/15 MD Jordan [facility] [address] [place] [address] Peter Mcmullen Assigned Musculoskeletal 06/01/20 MD Mahendra Provider [address] [place], [place] [address] Giuliana Gomez Assigned Heart and 06/30/21 A, DESK DIRECTOR LIME SUPERVISOR Vascular Provider [address] [place] [address] Giuliana Gomez Nurse Practitioner Cardiovascular Disease 2 A, DESK DIRECTOR LIME SUPERVISOR [address] [place] [address] Fidencio Solis MD MD Cardiovascular Disease 08/21/[address], [place] [address] [place] [address] documented as of this encounter
--- OUTSIDE RECORDS SUMMARY | 2022-05-02 12:22 | XMS_ITS | Encounter Summary ---
:1950 Author Organization [place] Address [address] [facility] [place] [address] Care Team Providers Name Role Phone Anatoliy Jackson MD Primary Care Provider Heath More MD Unavailable Peter Gipson MD Unavailable Peter Mcmullen MD Unavailable Giuliana Gomez APRN EDITOR SCHOOL PHOTOGRAPH Unavailable [phone] Giuliana Gomez APRN EDITOR SCHOOL PHOTOGRAPH Unavailable Fidencio Solis MD Unavailable Reason for Visit Reason Onset Date Comments Refill Request 10/17/2021 Rosuvastatin Encounter Details Date Type Department Care Team Description 10/17/2021 Refill [facility] Heart Ruthy Solis MD Refill Request [facility] [address], (Rosuvastatin) [address] [id number] [address] [place] [address] [place] [phone] Social History Tobacco Use Types Packs/Day Years [...] with No / Unsure 10/14/2021 11:58 AM PERMIT AGENT someone who was confirmed or 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 documented as of this encounter Miscellaneous Notes Telephone Encounter - Johanna Anderson LPN - 10/17/2021 3:11 PM CST [facility] Cardiology Refill Guideline reviewed. Medication meets criteria for refill. IT AGENT documented in this encounter Plan of Treatment Upcoming Encounters Date Type Specialty Care Team Description 05/15/2022 Hospital Encounter Surgery Singh Torres MD [facility] [address] [place] [address] [place] [id number] (Wo rk) 05/15/2022 Surgery Surgery Neo Torres MD BLEPHAROPLASTY BILATERAL [facility], [facility] & [facility] PTOSIS REPAIR BILATERAL [address] [place] [address] [place] [phone] (Wo rk) 06/25/2022 Ancillary Procedure Cardiology Kirk Silver MD [address] [place] [id number] (Wo rk) Scheduled Procedures Name Priority Associated Diagnoses Date/Time REPAIR, PTOSIS, BILATERAL, Dermatochalas is 05/15/2022 7:30 AM CDT WITH BILATERAL BLEPHAROPLASTY 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 REPAIR, ECTROPION, EYE, Dermatochalasis 05/15/2022 7:30 AM CDT BILATERAL 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 documented as of this encounter Visit Diagnoses Diagnosis Coronary artery disease involving gulkana coronary artery of gulkana heart without angina pectoris Hyperlipidemia LDL goal <70 Other and unspecified hyperlipidemia S/P coronary artery stent placement 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 documented in this encounter Care Teams Radio Equipment Repairer Relationship Specialty Start Date End Date Anatoliy Jackson, PCP - General 05/14/12 Heath More PCP - Internal Medicine INTERNAL MEDICINE - 01/06/14 MD Andreas ENDOCRINOLOGY, DIABETES ENDOCRINE [facility] & [facility]ISM OF [facility] [address] [place] [phone] Peter Gipson PCP - Urology 04/02/15 MD Jordan [facility] [address] [place] [address] Peter Mcmullen Assigned Musculoskeletal 06/01/20 MD Mahendra Provider [facility][note 3][address] [place], [place] [id number] [place], [place] [address] Giuliana Gomez Assigned Heart and 06/30/21 A, GOLD STAMPER EDITOR SCHOOL PHOTOGRAPH Vascular Provider [address] [place] [address] Giuliana Gomez Nurse Practitioner Cardiovascular Disease 2 A, GOLD STAMPER EDITOR SCHOOL PHOTOGRAPH [address] [place] [address] Fidencio Solis MD MD Cardiovascular Disease 08/21/[address], [place] [address] [place] [address] documented as of this encounter
--- OUTSIDE RECORDS SUMMARY | 2022-05-02 12:22 | XMS_ITS | Encounter Summary ---
:1950 Author Organization [place] Address [address] [facility] [place] [address] Care Team Providers Name Role Phone Anatoliy Jackson MD Primary Care Provider Heath More MD Unavailable Peter Gipson MD Unavailable Peter Mcmullen MD Unavailable Giuliana Gomez APRN SOFTWARE CONTROLS ENGINEER Unavailable [phone] Giuliana Gomez APRN SOFTWARE CONTROLS ENGINEER Unavailable [phone] Fidencio Solis MD Unavailable Encounter Details Date Type Department Care Team Description 10/29/2021 Travel Social History Tobacco Use Types Packs/Day [...] [address] [place] [place] [id number] (Wo rk) 05/15/2022 Surgery Surgery Neo Torres MD BLEPHAROPLASTY BILATERAL [facility], INTERNAL & SURGEONS PA PTOSIS REPAIR BILATERAL [address] [place] [address] [place] [phone] (Wo rk) 06/25/2022 Ancillary Procedure Cardiology Kirk Silver MD [address] [place] [address] [...] on filedocumented in this encounter Care Teams Research Biostatistician Relationship Specialty Start Date End Date Anatoliy Jackson, PCP - General 05/14/12 Heath More PCP - Internal Medicine INTERNAL MEDICINE - 01/06/14 MD Andreas ENDOCRINOLOGY, DIABETES END[facility]INE [facility] & [facility] [address] [place] [address] [place] [phone] Peter Gipson PCP - Urology 04/02/15 MD Jordan [facility] [address] [place] [address] Peter Mcmullen Assigned Musculoskeletal 06/01/20 MD Mahendra Provider [address] [place] [address] Giuliana Gomez Assigned Heart and 06/30/21 A, WOOL MERCHANT SOFTWARE CONTROLS ENGINEER Vascular Provider [address] [place] [address] Giuliana Gomez Nurse Practitioner Cardiovascular Disease 2 A, WOOL MERCHANT SOFTWARE CONTROLS ENGINEER [address] [place] [address] Fidencio Solis MD MD Cardiovascular Disease 08/21/21 [address], [place] [address] [place] [id number] documented as of this encounter
--- OUTSIDE RECORDS SUMMARY | 2022-05-02 12:22 | XMS_ITS | Encounter Summary ---
:1950 Author Organization [facility] Address [address] [facility] [place] [address] Care Team Providers Name Role Phone Anatoliy Jackson MD Primary Care Provider Heath More MD Unavailable Peter Gipson MD Unavailable Peter Mcmullen MD Unavailable Giuliana Gomez APRN CHECK WRITER SALESPERSON Unavailable Giuliana Gomez APRN CHECK WRITER SALESPERSON Unavailable [phone] Fidencio Solis MD Unavailable Encounter Details Date Type Department Care Team Description 10/29/2021 [facility] Ischemic cardiomyopathy; Hart Dyspnea on exertion [id number] [facility] [address] [place] [address] Social History Tobacco Use [...] PA [address] [place] [address] (Wo rk) 05/15/2022 Surgery Surgery Neo Torres MD BLEPHAROPLASTY BILATERAL [place] [facility] UPPER L IDS, INTERNAL & SURGEONS [place] PTOSIS REPAIR BILATERAL [address] [place] [address] (Wo rk) 06/25/2022 Ancillary Procedure Cardiology Kirk Silver MD [address] [place] [address] (Wo rk) Scheduled Procedures Name Priority Associated Diagnoses Date/Time REPAIR, PTOSIS, BILATERAL, Dermatochalas is 05/15/2022 7:30 AM CDT WITH BILATERAL BLEPHAROPLASTY 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 BASIC METABOLIC Routine 10/29/2021 11:25 AM Ischemic Resul ts for this PANEL CDT cardiomyopathy procedure are in Dyspnea on exertion the resu lts section. documented in this encounter Results (ABNORMAL) N terminal pro [...] CDT 11:25 AM CDT Unknown Giuliana Masonchen FUR DRESSER CHECK WRITER SALESPERSON LAB - BLOOD ORDERABLES Performing Organization Address City/State/ZIP Code [place] [address] Care Lab [address] Lab (1st floor, no room number) (ABNORMAL) Basic metabolic panel (10/29/2021 11:25 AM CDT) [facility] Method Time Signature Sodium 140 133 - 144 10/29/2021 LABORATORY mmol/L 12:24 PM CDT Potassium 4.8 [...] CDT Calcium 8.5 8.5 - 10.1 10/29/2021 [facility] mg/dL 12:24 PM CDT Glucose 127 (H) 70 - 99 10/29/2021 [facility] mg/dL 12:24 PM CDT GFR Estimate 55 (L) >60 10/29/2021 LABORATORY mL/min/1.7 12:24 PM CDT 3m2 Comment: Effective July 30, 2021 eGF Rcr in adults is calculated using the 2020 CKD-EPI creatinine equation which includ es age and gender (Senior Group Manager et al., NEJ, DOI: 10.1056/HNEXde0588764) Specimen Anatomical Collection Method / Collection Time Recei shyla Time (Source) Location / Volume Laterality Blood STRUCTURE OF RIGHT Venipuncture / 10/29/2021 11:25 UPPER LIMB / Unknown AM CDT 11:25 AM CDT Unknown Giuliana A Mannchen FUR DRESSER CHECK WRITER SALESPERSON LAB - BLOOD ORDERABLES Performing Organization Address City/State/ZIP Code [place] [address] Care Lab [address] Lab (1st floor, no room number) documented in this encounter Visit Diagnoses Diagnosis Ischemic cardiomyopathy Other specified forms of chronic ischemi c heart disease Dyspnea on exertion Other dyspnea and respiratory abnormalit y 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 documented in this encounter Care Teams Nanotechnology Engineering Technologist Relationship Specialty Start Date End Date Anatoliy Jackson, PCP - General 05/14/12 Heath More PCP - Internal Medicine INTERNAL MEDICINE - 01/06/14 MD Andreas ENDOCRINOLOGY, DIAB[facility]ES [facility] [address] [place] [address] Peter Gipson PCP - Urology 04/02/15 MD Jordan [facility] [address] [place] [address] [address] [place], [place] [phone] Peter Mcmullen Assigned Musculoskeletal 06/01/20 MD Mahendra Provider [address] [place], [place] [address] Giuliana Gomez Assigned Heart and 06/30/21 CALLIE Hernandez CHECK WRITER SALESPERSON Vascular Provider [address] [place] [address] Giuliana Gomez Nurse Practitioner Cardiovascular Disease 2 A, FUR DRESSER CHECK WRITER SALESPERSON [address] [place] [address] Fidencio Solis MD MD Cardiovascular Disease 08/21/21 [address] [facility] [address] [place] [address] documented as of this encounter
--- OUTSIDE RECORDS SUMMARY | 2022-05-02 12:22 | XMS_ITS | Encounter Summary ---
:1950 Author Organization Agency Address [address] [facility] [place] [address] Care Team Providers Name Role Phone Anatoliy Jackson MD Primary Care Provider Heath More MD Unavailable Peter Gipson MD Unavailable Peter Mcmullen MD Unavailable Giuliana Gomez APRN CARDIAC CATH TECHNICIAN Unavailable [phone] Giuliana Gomez APRN CARDIAC CATH TECHNICIAN Unavailable [phone] Fidencio Solis MD Unavailable Reason for Visit Reason Onset Date Comments Refill Request 12/09/2021 Encounter Details Date Type Department Care Team Description 12/09[facility]2021 [facility] [address] [facility] [address] [place] [address] Social History Tobacco Use [...] Telephone Encounter - Laureen Emerson RN - 12/09/2021 10:51 AM CDT Medication Refilled: Amlodipine Last office visit:10/29/21 with eva Gomez CNP Last Labs/EKG: NA Next office visit: 01/2022 [facility] - has referral to [place] in [facility]. [facility] Wayne Emerson RN documented in this encounter Plan of Treatment Upcoming Encounters Date Type Specialty Care Team Description 05/15/2022 Hospital Encounter Surgery Singh Torres MD [facility] [address] [place] [address] (Wo rk) 05/15/2022 Surgery Surgery Neo Torres MD BLEPHAROPLASTY BILATERAL [place] [facility] UPPER L IDS, INTERNAL & SURGEONS [place] PTOSIS REPAIR BILATERAL [address] [place] [address] (Wo rk) 06/25/2022 Ancillary Procedure Cardiology Kirk Silver MD [address] [place] [address] (Wo rk) Scheduled Procedures Name Priority Associated Diagnoses Date/Time REPAIR, PTOSIS, BILATERAL, Dermatochalas is 05/15/2022 7:30 AM CDT WITH BILATERAL BLEPHAROPLASTY 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 REPAIR, ECTROPION, EYE, Dermatochalasis 05/15/2022 7:30 AM CDT BILATERAL 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 documented as of this encounter Visit Diagnoses Diagnosis Essential hypertension Unspecified essential hypertension S/P CABG (coronary artery bypass graft) 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 documented in this encounter Care Teams Childbirth And Infant Care Teacher Relationship Specialty Start Date End Date Anatoliy Jackson, PCP - General 05/14/12 Heath More PCP - Internal Medicine INTERNAL MEDICINE - 01/06/14 MD Andreas ENDOCRINOLOGY, DIABETES ENDOCRINE CLINIC & METABOLISM [facility] [address] [place] [phone] Peter Gipson PCP - Urology 04/02/15 MD Jordan [facility] [address] [place] [address] [address] [place], [place] [phone] Peter Mcmullen Assigned Musculoskeletal 06/01/20 MD Mahendra Provider [facility] [address] [facility] [address] [place], [place] [address] Giuliana Gomez Assigned Heart and 06/30/21 A, PIPE LINE MAINTENANCE SUPERVISOR CARDIAC CATH TECHNICIAN Vascular Provider [address] [place] [address] Giuliana Gomez Nurse Practitioner Cardiovascular Disease 2 A, PIPE LINE MAINTENANCE SUPERVISOR CARDIAC CATH TECHNICIAN [address] [place] [address] Fidencio Solis MD MD Cardiovascular Disease 08/21/[address], [facility] [address] [place] [address] documented as of this encounter
--- OUTSIDE RECORDS SUMMARY | 2022-05-02 12:22 | XMS_ITS | Encounter Summary ---
:1950 Author Organization [place] Address [address] [facility] 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 Cardiac p acemaker in situ Heart Care [address] [facility] [address] [place] [phone] Social History Tobacco Use Types Packs/Day Years [...] with No / Unsure 10/14/2021 11:58 AM POLICE OFFICER BOOKING someone who was confirmed or 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 documented as of this encounter Plan of Treatment Upcoming Encounters Date Type Specialty Care Team Description 05/15/2022 Hospital Encounter Surgery Singh Torres MD [facility] [address] [place] [address] (Rosalva rk) 05/15/2022 Surgery Surgery Neo Torres MD BLEPHAROPLASTY BILATERAL [place] [facility] UPPER L IDS, INTERNAL & SURGEONS PA PTOSIS REPAIR BILATERAL [address] [place] [id number] (Wo rk) 06/25/2022 Ancillary Procedure Cardiology Kirk Silver MD [address] [place] [address] (Wo rk) Scheduled Procedures Name Priority Associated Diagnoses Date/Time REPAIR, PTOSIS, BILATERAL, Dermatochalas is 05/15/2022 7:30 AM CDT WITH BILATERAL BLEPHAROPLASTY 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 REPAIR, ECTROPION, EYE, Dermatochalasis 05/15/2022 7:30 AM CDT BILATERAL 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 documented as of this encounter Results PM DEVICE PROGRAMMING EVAL, DUAL LEAD PACER (12/18/2021 8:42 AM CDT) Component Value Ref Test Analysis Performed Pathologis t Range Method Time At Signature Date Time [id number] [employer] Interrogation Session Implantable [employer] Pulse Generator Home Manager Implantable L331 ACCOLADE MRI [employer] Pulse Generator EL Model Implantable [id number] [employer] Pulse Generator Serial Number Type In Clinic [employer] Interrogation Session Clinic Name [facility] [employer] Implantable Pacemaker [employer] Pulse Generator Type Implantable [id number] [employer] Pulse Generator Implant Date Implantable Lead [employer] Home Manager Implantable Lead 7840 Ingevity + MEDTRON IC Model MRI Implantable Lead [id number] [employer] Serial Number Implantable Lead [id number] [employer] Implant Date Implantable Lead Bipolar Lead [employer] Polarity Type Implantable Lead UNKNOWN [employer] Location Detail 1 Implantable Lead Right Atrium [employer] Location Implantable Lead [employer] Home Manager Implantable Lead 7841 Ingevity + MEDTRON IC Model MRI Implantable Lead [id number] [employer] Serial Number Implantable Lead [id number] [employer] [...] [employer] Pacing Threshold Pulse Width Battery Date [id number] [employer] Time of Measurements Battery Status Beginning of [employer] Service Battery 174 mo [employer] Remaining Longevity Battery 100 % [employer] Remaining Percentage Kali Statistic [employer] Date Time Start Kali Statistic [id number] [employer] Date Time End Kali Statistic 56 % [employer] RA Percent Paced Kali Statistic 0 % [employer] RV Percent Paced Atrial Tachy [employer] Statistic Date Time Start Atrial Tachy [id number] [employer] Statistic Date Time End Atrial Tachy 0 % [employer] Statistic AT/AF [place] Percent Episode 0 [employer] Statistic Recent Count [...] [place] [employer] Statistic Vendor Type Category Episode [id number] [employer] Statistic Recent Date Time Start Episode [id number] [employer] Statistic Recent Date Time End Episode [id number] [employer] Statistic Recent Date Time Start Episode [id number] [employer] Statistic Recent Date Time End Episode [id number] [employer] Statistic Recent Date Time Start Episode [id number] [employer] Statistic Recent Date Time End Episode [id number] [employer] Statistic Recent Date Time Start Episode [id number] [employer] Statistic Recent Date Time End Episode [id number] [employer] Statistic Recent Date Time Start Episode [id number] [employer] Statistic Recent Date Time End Anatomical Region Laterality Modality Other Specimen (Source) Anatomical Collection Method Collection Time Re ceived Time Location / / Volume Laterality 12/18/2021 8:24 AM CDT Narrative 12/25/2021 4:24 PM CDT [employer] Accolade (D) Pacemaker Device Check Patient seen in clinic for device evalua tion and iterative programming. AP: 56 ?% ?? ELECTRIC CLOCK MECHANIC: <1 % ?? Mode: DDDR 60-130 ?? [...] yrs estimated long evity ?? Device Site: WN ?? Atrial Arrhythmia: 0 ?? Ventricular Arrhythmia: [...] Monsivais MD CV CARDIAC SERVICES ORDERABL ES PM DEVICE PROGRAMMING EVAL, DUAL LEAD PACER (10/28/2021 11:53 AM CDT) Component Value Ref Test Analysis Performed Pathologis t Range Method Time At Signature Date Time [id number] [employer] Interrogation Session Implantable [employer] Pulse Generator Home Manager Implantable L331 ACCOLADE MRI [employer] Pulse Generator EL Model Implantable [id number] [employer] Pulse Generator Serial Number Type In Clinic [employer] Interrogation Session Clinic Name Gaby [employer] Implantable Pacemaker [employer] Pulse Generator Type Implantable [id number] [employer] Pulse Generator Implant Date Implantable Lead [employer] Home Manager Implantable Lead 7840 Ingevity + MEDTRON IC Model MRI Implantable Lead [id number] [employer] Serial Number Implantable Lead [id number] [employer] Implant Date Implantable Lead Bipolar Lead [employer] Polarity Type Implantable Lead UNKNOWN [employer] Location Detail 1 Implantable Lead Right Atrium [employer] Location Implantable Lead [employer] Home Manager Implantable Lead 7841 Ingevity + MEDTRON IC Model MRI Implantable Lead [id number] [employer] Serial Number Implantable Lead [id number] [employer]IC Implant Date Implantable Lead Bipolar Lead [...] Statistic MEDTRONIC Date Time End Kali Statistic 25 % [employer] RA Percent Paced Kali Statistic 0 % [employer] RV Percent Paced Atrial Tachy [employer]TRONIC Statistic Date Time Start Atrial Tachy [employer]IC Statistic Date Time End Atrial Tachy 0 % [employer] Statistic AT/AF [place] Percent Episode 0 [employer] Statistic Recent Count [...] [place] [employer] Statistic Vendor Type Category Episode [id number] [employer] Statistic Recent Date Time Start Episode [id number] [employer] Statistic Recent Date Time End Episode [id number] [employer] Statistic Recent Date Time Start Episode [id number] [employer] Statistic Recent Date Time End Episode [id number] [employer] Statistic Recent Date Time Start Episode [id number] [employer] Statistic Recent Date Time End Episode [id number] [employer] Statistic Recent Date Time Start Episode [id number] [employer] Statistic Recent Date Time End Episode [id number] [employer] Statistic Recent Date Time Start Episode [id number] [employer] Statistic Recent Date Time End Anatomical Region Laterality Modality Other Specimen (Source) Anatomical Collection Method Collection Time Re ceived Time Location / / Volume Laterality 10/28/2021 11:25 AM CDT Narrative 11/07/2021 9:27 AM CDT Forter (D) 13 day Post Pacemaker Device Check Patient seen in clinic for device evalua tion and iterative programming. AP: 25% ELECTRIC CLOCK MECHANIC: <1% Mode: DDDR 60-130 Underlying Rhythm: [...] infection. ??6 week device check previously scheduled matt Henson on 12/18/21. ?? 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 documented in this encounter Care Teams Vinyl Top Installer Relationship Specialty Start Date End Date Anatoliy Jackson, PCP - General 05/14/12 Heath More PCP - Internal Medicine INTERNAL MEDICINE - 01/06/14 MD Andreas ENDOCRINOLOGY, DIABETES [facility] [address] [place] [phone] Peter Gipson PCP - Urology 04/02/15 MD Jordan [facility] [address] [facility] [address] [place], [place] [id number] Peter Mcmullen Assigned Musculoskeletal 06/01/20 MD Mahendra Provider [address] [place] [address] Giuliana Gomez Assigned Heart and 06/30/21 CALLIE Hernandez CNP Vascular Provider [address] [facility] [address] [facility] [place] [address] Giuliana Gomez Nurse Practitioner Cardiovascular Disease 2 A, RIVET TAPPING MACHINE OPERATOR METALLURGICAL INSPECTOR [address] [place] [address] Fidencio Solis MD MD Cardiovascular Disease 08/21/21 [address] [facility] [address] [place] [id number] documented as of this encounter
--- OUTSIDE RECORDS SUMMARY | 2022-05-02 12:22 | XMS_ITS | Encounter Summary ---
:1950 Author Organization [place] Address [address] [place] [address] Care Team Providers Name Role Phone Anatoliy Jackson MD Primary Care Provider Heath More MD Unavailable Peter Gipson MD Unavailable Peter Mcmullen MD Unavailable Giuliana Gomez APRN FITNESS AND WELLNESS DIRECTOR Unavailable [phone] Giuliana Gomez APRN FITNESS AND WELLNESS DIRECTOR Unavailable [phone] Fidencio Solis MD Unavailable Encounter Details Date Type Department Care Team Description 10/28/2021 Travel Social History Tobacco Use Types Packs/Day [...] [address] [place] [address] (Wo rk) 05/15/2022 Surgery Surgery Neo Torres MD BLEPHAROPLASTY BILATERAL [facility] UPPER L IDS, INTERNAL & SURGEONS PA PTOSIS REPAIR BILATERAL [address] [place] [address] (Wo rk) 06/25/2022 Ancillary Procedure Cardiology Kirk Silver MD [address] [place] [address] [...] on filedocumented in this encounter Care Teams Water Treatment Specialist Relationship Specialty Start Date End Date Anatoliy Jackson, PCP - General 05/14/12 Heath More PCP - Internal Medicine INTERNAL MEDICINE - 01/06/14 MD Andreas ENDOCRINOLOGY, DIABETES ENDOCRINE CLINIC & METABOLISM [facility] [address] [place] [phone] Peter Gipson PCP - Urology 04/02/15 MD Jordan [facility] [address] [place] [address] Peter Mcmullen Assigned Musculoskeletal 06/01/20 MD Mahendra Provider [address] [place] [address] Giuliana Gomez Assigned Heart and 06/30/21 A, BOAT PULLER FITNESS AND WELLNESS DIRECTOR Vascular Provider [address] [place] [address] Giuliana Gomez Nurse Practitioner Cardiovascular Disease 2 A, BOAT PULLER FITNESS AND WELLNESS DIRECTOR [address] [place] [address] Fidencio Solis MD MD Cardiovascular Disease 08/21/21 [address] [place] [id number] documented as of this encounter
--- OUTSIDE RECORDS SUMMARY | 2022-05-02 12:23 | XMS_ITS | Encounter Summary ---
:1950 Author Organization [place] Address [address] [place] [address] Care Team Providers Name Role Phone Anatoliy Jackson MD Primary Care Provider Heath More MD Unavailable Peter Gipson MD Unavailable Peter Mcmullen MD Unavailable Ailyn Julien APRN SETTER OUT Unavailable [phone] Ailyn Julien APRN SETTER OUT Unavailable Fidencio Solis MD Unavailable Reason for Visit Reason Comments Dizziness Encounter Details Date Type Department Care Team Description 10/14/2021 Surgery [facility] Mahendra Vega ry Pacemaker [facility] Bogdan Steward MD Insertion Care [address] [place] [address] [place], [place] [phone] (Wo rk) [id number] [phone] Surgery Details Date/Time Status Location OR Service Patient Case Case Traum a Class Class Type Case? 10/14/21 2:20 Posted [facility] Cath Cardiology Inpatient PM CARDIAC Lab 11 FIRE CONTROL ASSISTANT Panel 1 Procedure LRB Anes Op Region Wound Class Commen ts Temporary Pacemaker Insertion N/A None Heart Surgeon Surgeon Role Service Panel Mahendra Vega MD Primary Cardiology 1 documented in this encounter Social History Tobacco Use Types Packs/Day Years [...] with No / Unsure 10/14/2021 11:58 AM [employer] someone who was confirmed or 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 documented as of this encounter Last Filed Vital Signs Vital Sign Reading Time Taken Comments Blood Pressure 111/55 10/14/2021 2:15 PM [facility] [facility] Pulse 28 10/14/2021 2:15 PM [employer] Temperature 36.4 ??C (97.6 ??F) 10/14/2021 12:01 PM [facility] [facility] Respiratory Rate 14 10/14/2021 3:01 PM [employer] Oxygen Saturation 99% 10/14/2021 2:15 PM [employer] Inhaled Oxygen Concentration - - Weight 98 kg (216 lb) 10/14/2021 12:01 PM [employer] Height 180.3 cm (5' 11) 10/14/2021 12:01 PM [employer] Body Mass Index 30.13 10/14/2021 12:01 PM [employer] documented in this encounter Medications at Time of Discharge Medication Sig Dispensed Refills Start Date End Date acetaminophen (TYLENOL) Take 2 tablets (650 40 [...] 2 times Essential hypertension daily (with meals) Am and 2029 Continuous Blood Gluc 0 Sensor (DEXCOM G6 SENSOR) MISC Copper Gluconate (COPPER Take by mouth daily 0 CAPS) 2 MG CAPS cyanocobalamin (VITAMIN Take [...] right knee and wrist) Topical cream hydrALAZINE (APRESOLINE) Take 1 tablet (25 270 tablet 3 10/2021 25 MG tabletIndications: mg) by mouth 3 times Essential hypertension daily Take 1 tablet 25mg three times daily in addition 1 tablet 50mg three times daily, for a total of 75mg three times daily hydrALAZINE (APRESOLINE) Take 1 tablet (50 270 tablet 3 10/2021 50 MG tabletIndications: mg) by mouth 3 times Essential hypertension daily Take 1 tablet 25mg three times daily in addition 1 tablet 50mg three times daily, for a total of 75mg three times daily melatonin 3 MG CAPS Take 10 mg [...] B-D MICRO FINE as directed 100 0 09/18/200408/11 CC SYRINGES Turmeric 500 MG CAPS Take 1 capsule by 0 mouth every morning amLODIPine (NORVASC) 10 Take 10 mg by mouth 0 12/09/2021 MG tabletIndications: At Bedtime Essential hypertension, S/P CABG (coronary artery bypass graft) carvedilol (COREG) 6.25 Take 6.25 mg by 180 tablet 1 021 10/16/2021 MG tabletIndications: mouth 2 times daily Essential hypertension (with meals) and 2029 cloNIDine (CATAPRES) 0.2 Take 0.5 tablets 180 tablet 3 10/1610/16/2021 MG tabletIndications: (0.1 mg) by mouth 2 S/P CABG (coronary times daily artery bypass graft), Essential hypertension cloNIDine (CATAPRES) 0.2 Take 1 tablet (0.2 180 tablet 3 11/202110/16/2021 MG tabletIndications: mg) by mouth 2 times S/P CABG (coronary daily artery bypass graft), Essential hypertension isosorbide dinitrate Take 1 tablet (30 270 tablet 3 10/11/19 22 10/29/2021 (ISORDIL) 30 MG mg) by mouth 3 times tabletIndications: daily Essential hypertension lisinopril (ZESTRIL) 10 Take 1 tablet (10 90 tablet 1 07/1703/28/2022 MG tabletIndications: mg) by mouth daily S/P CABG (coronary At bedtime artery bypass graft) oxyCODONE-acetaminophen Take 1 tablet by 10 tablet 0 202110/16/2021 (PERCOCET) 5-325 MG mouth every 6 hours tabletIndications: as needed for Junctional bradycardia moderate to severe pain rosuvastatin (CRESTOR) Take 1 tablet (40 90 tablet 3 202010/17/2021 40 MG tabletIndications: mg) by mouth every Coronary artery disease evening involving [place]hoe coronary artery of [place]hoe heart without angina pectoris, Hyperlipidemia LDL goal <70, S/P coronary artery stent placement documented as of this encounter Consult Notes Fidencio Solis MD - 10/14/2021 2:30 PM CSTAssociated Order(s): CARDIOLOGY IP CONSULT Images from the original note were not included. Cardiology Consultation: Nikita Anderson Date of : 1950 Age: [age] year old Date of Admission: 10/14/2021 Consult indication: bradycardia Assessment and Plan / Recommendations: #??SSS, junctional bradycardia, symptomatic, on clonidine 0.2mg BID and carvedilol 6.25mg BID. Last took clonidine 0.1mg at approx 0900 this AM. Rhythm changed from sinus bradycardia to junctional bradycardia while in ED. # Mild ischemic CM, TTE 06/06/2021 LVEF 46%, down from TTE 01/02/21 LVEF 55-60%. Denies symptoms concerning for angina, however did have 7 beat run of NSVT noted on cardiac event monitor.?? Coronary angiography/bypass angiography 07/03/2021 that demonstrated DOUGLASS to LAD and SVG to RPDA widely patent, SVG to OM stump occluded, however this was thought to feed a relatively small myocardial territory andwould not explain echocardiographic findings. [place] vessel CAD was otherwise unchanged from pre-CABG coronary angiogram 03/2021. Since patient was asymptomatic of angina, this has been managed medically. Troponin normal on presentation. #??CAD with recent CABG 04/19/2021,??DOUGLASS to LAD, reverse SVG to PDA, reverse SVG to OM 2 (occluded). #??Post CABG atrial tachycardia vs atrial fibrillation on Holter monitor 05/07/21 (23s, 39s), no recurrence seen on subsequent 30d event monitor #??HTN, challenging to control. #??GENO on CKD, likely due to decreased renal perfusion # CARLITOS, recently dx, on CPAP # Anxiety #??HL #??DM # Trivial pericardial effusion -Discussed options for further evaluation management including continued monitoring with transcutaneous pads, versus temporary transvenous pacemaker -Since rhythm has degenerated from sinus bradycardia to junctional bradycardia, BP has decreased to 110/50 mmHg, symptomatic, recommend emergent temporary transvenous pacemaker, discussed risk/benefitswith patient and his , they are in agreement -Continue to hold clonidine and carvedilol -Continue remainder of cardiac regimen including aspirin, statin, amlodipine, hydralazine, Imdur, lisinopril -Discussed case with ED physician Dr. Shane, interventional colleague Dr. Vega, as well as cardiology EP at [facility] Dr. Berman, greatly appreciate assistance/collaboration, patient will need transfer to [facility] for continued care Thank you for allowing our team to participate in the care of Nikita Anderson. Please do not hesitateto page me with any questions or concerns. Fidencio Solis MD, [facility] Cardiology Text Page October 14, 2021 Voice recognition software utilized. I spent a total of 55 minutes (excluding procedure time) personally providing and directing criticalcare services at the bedside and on the unit for this patient. History of Present Illness: I had the opportunity to see patient Nikita Anderson at [facility] for a cardiology consultation. As you know, Mr. Anderson is a 70-year-old male with a past medical history significant for anxiety, CARLITOS, hypertension, hyperlipidemia, diabetes, chronic kidney disease, coronary artery disease status post PCI??and CABG (DOUGLASS to LAD, rSVG to PDA, rSVG to OM2), post CABG pleural effusions, ischemic cardi omyopathy,??who presents with dizziness. Patient is known to me from clinic. I had recently seen him in clinic on 10/10/2021 for management of resistant hypertension. Patient has a very extensive cardiac history. Coronary angiogram 03/13/2021 demonstrated obstructive disease in the LAD and RCA, also with a BRICK VENEER MAKER of OM 2. ??Patient underwent bypass surgery with Dr. Gardner on 04/19/2021, DOUGLASS to LAD, reverse SVG to PDA, reverse SVG to OM 2. TTE 06/06/2021 demonstrated LVEF 46% with severe inferior/inferoseptal hypokinesis, moderately reduced RV function, pleural effusion, trivial pericardial effusion. ?? I had last seen him in clinic on 06/12/2021. At that time he reviewed the decrease in LV function on the TTE from 05/2021. For further assessment, patient underwent a nuclear stress test that was abnormal, subsequently underwent coronary angiography/bypass angiography 07/03/2021 that demonstrated DOUGLASS to LAD and SVG to RPDA widely patent, SVG to OM 3 stump occluded, however this was thought to feed a relatively small myocardial territory and would not explain echocardiographic findings. [place] vesselCAD was otherwise unchanged from pre- CABG coronary angiogram 03/2021. Since patient was asymptomatic of angina, this has been managed medically. A Holter monitor was done 05/07 to 05/09/2021 that demonstrated 2 short episodes of atrial tachycardiavs??atrial fibrillation, one episode lasting 23 seconds, and another lasting 39 seconds. ??For follow-up, cardiac event monitor was placed for 30 days, this revealed no atrial fibrillation, however didshow one 7 beat run of nonsustained VT at 197 bpm. Since then, he has had challenging to control blood pressures. When I had seen him in clinic on 10/10/2021, he had been monitoring his blood pressures almost 24 hours a day, with several readings averaged each hour. Blood pressures seem to increase over the course of the day, and highest in the later afternoon/evening. He reports that he has been evaluated by endocrinology, and tests for Conn syndrome have been negative (patient has a family history of Conn syndrome). Renal artery Doppler ultrasounds 04/2021 negative for renal artery stenosis. Patient does have sleep apnea, and has been using his CPAPevery night. For further management of hypertension, we increased clonidine 0.1 mg twice daily to 0.2 mg twice daily. We had also plan to change Imdur 60 mg daily to Isordil 30 mg 3 times daily, however Isordil wasnot covered by his insurance, so he has not made this change. He remains on hydralazine 75 mg 3 times daily, amlodipine 10 mg daily, carvedilol 6.25 mg twice daily, lisinopril 10 mg nightly. Patient was hesitant about increasing lisinopril due to prior renal dysfunction, which he had associated with higher doses of lisinopril. Per their request, we referred him to the [facility] for further management of hypertension and cardiac cares. Unfortunately, since those changes, patient reports that he has been having significant dizziness. In fact, he had called our nurse team, and faxed over a log of his recent readings. Heart rates have generally been in the 50s to 70s beats per minute range, this morning, due to dizziness, he only took clonidine 0.1 mg at around 9 AM. He presented to the ED due to persistent dizziness. Initial ECG demonstrates sinus bradycardia at approximately 35 bpm. Subsequently, approximately 1.5 hours later, rhythm then changed to a junctional bradycardia at approximately 30 bpm. He is minimally dizzy at rest, however is significantly dizzy with activity. Blood pressures are in the 110/50 mmHg range. Past Medical History: I have reviewed this patient's past medical history Past Medical History: Diagnosis Date ??? Angina [...] ??? Unspecified essential hypertension Past Surgical History: I have reviewed this patient's past surgical history Past Surgical History: Procedure Laterality Date ??? [...] Coronary Graft; Surgeon: Mahendra Vega MD; Location: [facility] CARDIAC FIRE CONTROL ASSISTANT ??? CV CORONARY ANGIOGRAM N/A 03/13/2021 Procedure: Coronary Angiogram; Surgeon: Darwin Valero MD; Location: HEART CARDIAC FIRE CONTROL ASSISTANT ??? CV HEART CATHETERIZATION WITH POSSIBLE INTERVENTION N/A 07/03/2021 Procedure: Coronary Angiogram; Surgeon: Mahendra Vega MD; Location: [facility] CARDIAC CATHLAB ??? CV INSTANTANEOUS WAVE-FREE RATIO N/A 03/13/2021 Procedure: Instantaneous Wave-Free Ratio; Surgeon: Darwin Valero MD; Location: HEART CARDIAC FIRE CONTROL ASSISTANT ??? CV LEFT HEART CATH N/A 07/03/2021 Procedure: Left Heart Cath; Surgeon: Mahendra Vega MD; Location: HEART CARDIAC FIRE CONTROL ASSISTANT ??? CV LEFT VENTRICULOGRAM N/A 07/03/2021 Procedure: Left Ventriculogram; Surgeon: Mahendra Vega MD; Location: HEART CARDIAC FIRE CONTROL ASSISTANT ??? HC LEFT HEART CATHETERIZATION 04/01/2016 mild LAD (30%), 50-60% rPDA ? ? HEAD & NECK SURGERY wisdom teeth extractions, subacious cyst removed ??? HEART CATH CORONARY ANGIOGRAM W/LV GRAM 01/03/15 70% prox PDA - FFR 0.77, 70% OM2 - FFR 0.79, 70-80% OM3 -FFR 0.77, 70-80% OM4, Social History: I have reviewed this patient's social history Social History Tobacco Use ??? Smoking status: Former Smoker Years: 2.00 Types: Cigarettes Quit date: 04/19/1972 Years since quittin.5 ??? Smokeless tobacco: Never Used Substance Use Topics ??? Alcohol use: Yes Comment: 4-5 drinks week Family History: I have reviewed this patient's family history Family History Problem Relation Age of Onset ??? Hypertension Mother ??? Diabetes Maternal Grandmother ??? Hypertension Maternal Grandmother ??? Hypertension Maternal Grandfather Allergies: I have reviewed this patient's allergy history Allergies Allergen Reactions ??? Atorvastatin Other (See Comments) Congestion ??? Epinephrine Palpitations Medications reviewed: Prior to admission medications: Prior to Admission medications Medication Sig Start Date End Date Taking? Authorizing Provider acetaminophen (TYLENOL) 325 MG tablet Take 2 tablets (650 mg) by mouth every 4 hours as needed for mild pain Patient taking differently: Take 650 mg by mouth At Bedtime 04/25/21 Brenda Willoughby PA-C amLODIPine (NORVASC) 10 MG tablet Take 10 mg by mouth At Bedtime 09/04/21 Ailyn Julien APRN CNP aspirin (ASA) 325 MG tablet Take 325 mg by mouth daily Reported, Patient carvedilol (COREG) 6.25 MG tablet Take 1 tablet (6.25 mg) by mouth 2 times daily (with meals) Am and8pm 07/17/21 Ailyn Julien APRN CNP cloNIDine (CATAPRES) 0.2 MG tablet Take 1 tablet (0.2 mg) by mouth 2 times daily 10/11/21 Fidencio Solis MD Continuous Blood Gluc Sensor (DEXCOM G6 SENSOR) MISC Unknown, Entered By History Copper Gluconate (COPPER CAPS) 2 MG CAPS Take by mouth daily Reported, Patient cyanocobalamin (VITAMIN B-12) 1000 MCG tablet Take 1,000 mcg by mouth daily Reported, Patient Ferrous Sulfate 324 (65 Fe) MG TBEC Take by mouth every morning Rx out, now getting it OTC Reported,Patient gabapentin (NEURONTIN) 300 MG capsule Take 1 capsule (300 mg) by mouth 2 times daily Patient taking differently: Take 300 mg by mouth 8:30PM and at bedtime 05/01/21 Yasir Altamirano, DO glucagon 1 MG kit 1 mg once as needed for low blood sugar Unknown, Entered By History HEMP OIL OR EXTRACT OR OTHER CBD CANNABINOID, NOT MEDICAL CANNABIS, Apply 1 Application topically 2 times daily as needed (Arthritis on right knee and wrist) Topical cream Reported, Patient hydrALAZINE (APRESOLINE) 25 MG tablet Take 1 tablet (25 mg) by mouth 3 times daily Take 1 tablet 25mg three times daily in addition 1 tablet 50mg three times daily, for a total of 75mg three times daily 10/10/21 Fidencio Solis MD hydrALAZINE (APRESOLINE) 50 MG tablet Take 1 tablet (50 mg) by mouth 3 times daily Take 1 tablet 25mg three times daily in addition 1 tablet 50mg three times daily, for a total of 75mg three times daily 10/10/21 Fidencio Solis MD insulin lispro (HUMALOG) 100 UNIT/ML vial 1 unit insulin for 5 carb units plus sliding scale as below: For Pre-Meal BG 150 - 199 give 2 unit. For Pre-Meal BG 200 - 249 give 4 units. For Pre-Meal BG 250 - 299 give 6 units. For Pre-Meal BG 300 - 349 give 8 units. For Pre-Meal BG greater than 350 - give 10 units. 04/25/21 Cierra Marie MD isosorbide dinitrate (ISORDIL) 30 MG tablet Take 1 tablet (30 mg) by mouth 3 times daily 10/10/21 Fidencio Solis MD lisinopril (ZESTRIL) 10 MG tablet Take 1 tablet (10 mg) by mouth daily At bedtime 07/17/21 Ailyn Julien APRN CNP melatonin 3 MG CAPS Take 10 mg by mouth At Bedtime Reported, Patient ONE TOUCH ULTRA TEST STRP as directed 06/22/06 Roberto Linder MD Polyethylene Glycol 400 (BLINK TEARS OP) Place 1 drop into both eyes daily as needed Reported, Patient rosuvastatin (CRESTOR) 40 MG tablet Take 1 tablet (40 mg) by mouth every evening 01/03/21 Fidencio Solis MD sertraline (ZOLOFT) 50 MG tablet Take 50 mg by mouth daily Sleep doctor recommends taking at bedtimeReported, Patient SYRINGE B-D MICRO FINE 1/2 CC SYRINGES as directed 09/18/04 Roberto Linder MD Turmeric 500 MG CAPS Take 1 capsule by mouth every morning Reported, Patient Current medications: Current Facility-Administered Medications Ordered in [facility] Medication Dose Route Frequency Last Rate Last Admin ??? fentaNYL (PF) (SUBLIMAZE) 100 MCG/2ML injection ??? lidocaine (PF) (XYLOCAINE) 1 % injection ??? midazolam (VERSED) 1 MG/ML injection Current Outpatient Medications Ordered in [facility] Medication ??? acetaminophen (TYLENOL) 325 MG tablet ??? amLODIPine (NORVASC) 10 MG tablet ??? aspirin (ASA) 325 MG tablet ??? carvedilol (COREG) 6.25 MG tablet ??? cloNIDine (CATAPRES) 0.2 MG tablet ??? Continuous Blood Gluc Sensor (DEXCOM G6 SENSOR) MISC ??? Copper Gluconate (COPPER CAPS) 2 MG CAPS ??? cyanocobalamin (VITAMIN B-12) 1000 MCG tablet ??? Ferrous Sulfate 324 (65 Fe) MG TBEC ??? gabapentin (NEURONTIN) 300 MG capsule ??? glucagon 1 MG kit ??? HEMP OIL OR EXTRACT OR OTHER CBD CANNABINOID, NOT MEDICAL CANNABIS, ??? hydrALAZINE (APRESOLINE) 25 MG tablet ??? hydrALAZINE (APRESOLINE) 50 MG tablet ??? insulin lispro (HUMALOG) 100 UNIT/ML vial ??? isosorbide dinitrate (ISORDIL) 30 MG tablet ??? lisinopril (ZESTRIL) 10 MG tablet ??? melatonin 3 MG CAPS ??? ONE TOUCH ULTRA TEST STRP ??? Polyethylene Glycol 400 (BLINK TEARS OP) ??? rosuvastatin (CRESTOR) 40 MG tablet ??? sertraline (ZOLOFT) 50 MG tablet ??? SYRINGE B-D MICRO FINE 1/2 CC SYRINGES ??? Turmeric 500 MG CAPS Review of Systems: A complete review of systems was performed and was negative except as mentioned in the HPI. Physical Exam: Vital signs were personally reviewed: Temperatures: Current - Temp: 97.6 ??F (36.4 ??C); Max - Temp Av.6 ??F (36.4 ??C) Min: 97.6 ??F(36.4 ??C) Max: 97.6 ??F (36.4 ??C) Respiration range: Resp Av.4 Min: 14 Max: 20 Pulse range: Pulse Av.8 Min: 26 Max: 40 Blood pressure range: Systolic (24hrs), Av , Min:103 , Max:142 ; Diastolic (24hrs), Av, Min:52, Max:56 Pulse oximetry range: SpO2 Av.4 % Min: 98 % Max: 100 % No intake or output data in the 24 hours ending 10/14/21 1430 216 lbs 0 oz Body mass index is 30.13 kg/m??. Body surface area is 2.22 meters squared. Constitutional: appears stated age, in no apparent distress, appears to be well nourished Head: normocephalic, atraumatic Neck: supple, trachea midline, no bruit bilaterally Pulmonary: clear to auscultation bilaterally, no wheezes, no rales, no increased work of breathing Cardiovascular: bradycardic, regular rhythm, no murmurrs, no lower extremity edema Gastrointestinal: no guarding, non-rigid Neurologic: awake, alert, moves all extremities Skin: no jaundice, warm on limited exam Psychiatric: affect is normal, answers questions appropriately, oriented to self and place Laboratory tests: Laboratory tests personally reviewed: CMP Recent Labs Lab 10/14/21 1231 NA 138 POTASSIUM 5.4* CHLORIDE 110* CO2 24 ANIONGAP 4 GLC 100* BUN 50* CR 1.37* GFRESTIMATED 55* RICHIE 9.0 CBC Recent Labs Lab 10/14/21 1231 WBC 8.3 RBC 4.01* HGB 11.2* HCT 35.1* MCV 88 MCH 27.9 MCHC 31.9 RDW 14.7 PLT 187 INRNo lab results found in last 7 days. Lab Results Component Value Date TROPONIN 0.050 (H) 04/28/2021 TROPONIN 0.066 (H) 04/27/2021 Recent Labs Lab Test 06/06/21 0802 12/21/20 0828 12/06/15 0812 04/09/15 0700 10/12/13 0000 CHOL 115 115 < > 132 154 HDL 41 31* < > 38* 35* LDL 49 34 < > 59 62 TRIG 123 251* < > 174* 287* CHOLHDLRATIO -- -- -- 3.5 4.4 < > = values in this interval not displayed. Lab Results Component Value Date A1C 7.1 04/29/2021 A1C 7.0 04/28/2021 A1C 7.0 04/23/2021 A1C 7.2 04/22/2021 A1C 7.3 04/21/2021 A1C 9.7 06/07/2014 A1C 8.2@ 08/14/2009 A1C 8.1@ 04/22/2005 A1C 10.7 09/25/2004 A1C 10.7 03/27/2004 TSH Date Value Ref Range Status 10/12/2013 2.73 mcU/mL Final Imaging and Additional Data: Additional data personally reviewed: Recent Results (from the past 4320 hour(s)) Echocardiogram Limited Result Value Biplane LVEF 46% Narrative [id number]^ANAYA^AILYN^[facility] Echocardiography Laboratory [address] [place] [id number] Name: NIKITA ANDERSON : 1950 Study Date: 06/06/2021 07:32 AM Age: 70 yrs Gender: Male Patient Location: [facility] Reason For Study: Coronary artery disease involving coronary bypass graft Ordering Physician: AILYN JULIEN Referring Physician: AILYN JULIEN Performed By: Brooke Salazar BSA: 2.2 m2 Height: 71 in Weight: 221 lb HR: 64 BP: 152/67 mmHg Procedure Limited Echo Adult. Interpretation Summary The left ventricle is borderline dilated. There [...] seen. RV function better seen, appears worse. Left Ventricle The left ventricle is borderline dilated. There is mild concentric left ventricular hypertrophy. Biplane LVEF is 46%. There is moderate to severe inferior wall hypokinesis. Right Ventricle The right ventricle is normal size. Moderately decreased right ventricular systolic function. Mitral Valve The mitral valve leaflets appear normal. There is no evidence of stenosis, fluttering, or prolapse. There is trace mitral regurgitation. Tricuspid Valve The tricuspid valve is normal in structure and function. There is trace tricuspid regurgitation. The right ventricular systolic pressure is approximated at 30mmHg plus the right atrial pressure. IVC diameter <2.1 cm collapsing >50% with sniff suggests a normal RA pressure of 3 mmHg. Aortic Valve There is mild trileaflet aortic sclerosis. Pulmonic Valve There is trace pulmonic valvular regurgitation. Pericardium Trivial pericardial effusion. Large left pleural effusion. MMode/2D Measurements & Calculations IVSd: 1.4 cm LVIDd: 5.7 cm LVIDs: 4.6 cm LVPWd: 1.3 cm FS: 18.2 % LV mass(C)d: 342.1 grams LV mass(C)dI: 155.5 grams/m2 RWT: 0.46 Doppler Measurements & Calculations TR max yohan: 271.0 cm/sec TR max P.4 mmHg Report approved by: Miko Ho 06/06/2021 09:40 AM Clinically Significant Risk Factors Present on Admission # Hyperkalemia: K = 5.4 mmol/L (Ref range: 3.4 - 5.3 mmol/L) on admission, will monitor as appropriate # Platelet Defect: home medication list includes an antiplatelet medication Cardiovascular: Cardiac Arrhythmia: Bradycardia, unspecified Fluid & Electrolyte Disorders: Hyperkalemia Nephrology: CKD POA List: Stage 3 (unspecified if a or b) (GFR 30 - 59) 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 Triple bypass 04/19/21, also med change clonodine 0.1 mg to 0.2 mg increased Thursday. I[employer] BAGGAGE PORTER Harshil Maldonado MD - 10/14/2021 11:46 AM CST History Chief Complaint: Dizziness HPI Nikita Anderson is a 70 year old male with history of type I diabetes, hypertension, prostate cancer,CAD, S/P CABG x3, who presents with light- headedness. Over the past few days, the patient has been having recurrent episodes of light-headedness. He believes this may be due to the fact he recently increased his clonidine dose from 0.1 mg BID to 0.2 mg BID. Two days ago, he had three spells of light-headedness. Yesterday, he went on a walk and after walking approximately 0.75 miles, he began to feel short of breath, chest tightness, and again felt light-headed. When he checked his blood pressure and pulse yesterday, his pulse was in the 30's and his blood pressure was slightly lower than normal. Lindsey mention that he has had ongoing issues with uncontrolled blood pressures and is attempting to be seen at [facility] for further evaluation of this problem. Today, he only took 0.1 mg of his clonidine but still had three episodes of light-headedness and at one point he was unable to respond to his right away. Additionally, he noted some slight numbness in his fingers. He notes that he has had past issues with light-headedness in regards to being on 100 mg of hydralazine. He denies any chest pain and he has not yet had any syncopal episodes. Review of Systems Respiratory: Positive for chest tightness and shortness of breath. Cardiovascular: Negative for chest pain. Bradycardia Neurological: Positive for light-headedness. Negative for syncope. All other systems reviewed and are negative. Allergies: Atorvastatin Epinephrine Medications: Amlodipine Aspirin 325 mg Coreg Clonidine Copper gluconate Vitamin B12 Ferrous sulfate Gabapentin Glucagon Hydralazine Insulin lispro Isordil Lisinopril Crestor Zoloft Imdur Past Medical History: Angina pectoris Prostate cancer CAD Type I diabetes Polyneuropathy in diabetes Pure hypercholesterolemia Hypertension Chronic renal insufficiency, stage 3 Claudication of both lower extremities Anemia Fluid overload Past Surgical History: CABG x3 Coronary angiogram x2 Coronary angiography Left heart cath x2 Left ventriculogram [place] teeth extraction Prostatectomy Tonsillectomy Family History: Mother: hypertension Sister: hypertension Social History: The patient presents to the ED with his . He plays bridge and has a granddaughter. Physical Exam Patient Vitals for the past 24 hrs: BP Temp Temp src Pulse Resp SpO2 Height Weight 10/14/21 1415 111/55 -- -- (!) 28 9 99 % -- -- 10/14/21 1400 114/60 -- -- (!) 28 (!) 0 98 % -- -- 10/14/21 1345 122/52 -- -- (!) 28 16 98 % -- -- 10/14/21 1330 103/55 -- -- (!) 26 14 98 % -- -- 10/14/21 1315 112/56 -- -- (!) 30 17 98 % -- -- 10/14/21 1300 103/53 -- -- (!) 27 15 98 % -- -- 10/14/21 1245 104/54 -- -- (!) 28 -- -- -- -- 10/14/21 1201 (!) 142/53 97.6 ??F (36.4 ??C) Temporal (!) 40 20 100 % 1.803 m (5' 11) 98 kg (216 lb) Physical Exam Nursing note and vitals reviewed. HENT: Mouth/Throat: Moist mucous membranes. Eyes: EOMI, nonicteric sclera Cardiovascular: bradycardic with HR 25-30, regular rhythm, no murmurs, rubs, or gallops Pulmonary/Chest: Effort normal and breath sounds normal. No respiratory distress. No wheezes. No rales. Abdominal: Soft. Nontender, nondistended, no guarding or rigidity. Musculoskeletal: Normal range of motion. Neurological: Alert. Moves all extremities spontaneously. Skin: Skin is warm and dry. No rash noted. Psychiatric: Normal mood and affect. Emergency Department Course ECG ECG obtained at 1210, ECG read at 1225 Marked sinus bradycardia. Nonspecific T wave abnormality. Abnormal ECG. Rate 32 bpm. OR interval 128 ms. QRS duration 106 ms. QT/QTc 466/340 ms. P-R-T axes 48 40 29. ECG 2 ECG taken at 1340, ECG read at 1346 Junctional bradycardia. Low voltage QRS. Nonspecific ST and T wave abnormality. Abnormal ECG. New junctional bradycardia as compared to prior, dated 10/14/2021. Rate 27 bpm. OR interval * ms. QRS duration 102 ms. QT/QTc 470/314 ms. P-R-T axes * 32 67. Laboratory: Labs Ordered and Resulted from Time of ED Arrival to Time of ED Departure BASIC METABOLIC PANEL - Abnormal Result Value Sodium 138 Potassium 5.4 (*) Chloride 110 (*) Carbon Dioxide (CO2) 24 Anion Gap 4 Urea Nitrogen 50 (*) Creatinine 1.37 (*) Calcium 9.0 Glucose 100 (*) GFR Estimate 55 (*) CBC WITH PLATELETS AND DIFFERENTIAL - Abnormal WBC Count 8.3 RBC Count 4.01 (*) Hemoglobin 11.2 (*) Hematocrit 35.1 (*) MCV 88 MCH 27.9 MCHC 31.9 RDW 14.7 Platelet Count 187 % Neutrophils 68 % Lymphocytes 17 % Monocytes 10 % Eosinophils 4 % Basophils 1 % Immature Granulocytes 0 NRBCs per 100 WBC 0 Absolute Neutrophils 5.7 Absolute Lymphocytes 1.4 Absolute Monocytes 0.8 Absolute Eosinophils 0.3 Absolute Basophils 0.1 Absolute Immature Granulocytes 0.0 Absolute NRBCs 0.0 TROPONIN I - Normal Troponin I High Sensitivity 27 MAGNESIUM - Normal Magnesium 2.3 Emergency Department Course: Reviewed: I reviewed nursing notes, vitals, past medical history, Care Everywhere and MIIC Assessments: 1228 I obtained history and examined the patient as noted above. 1249 Rechecked 1336 I rechecked the patient and explained findings. 1350 Rechecked Consults: [address] Solis, cardiology, to discuss the patient's presentation and treatment plan. 1312 I spoke with Maverick Ann APRN CNP, hospitalist, to discuss the patient's case. [address] Solis to discuss the patient's recent EKG. [address] Solis again to discuss the patient's treatment plan. [address] Solis the patient's plan for transfer following his procedure. [address] Horn, hospitalist at [facility], to discuss the patient's placement following his procedure. Disposition: The patient was transferred to the carpenter labor supervisor under the care of Dr. Vega. Impression & Plan Medical Decision Making: Patient presents with chief complaint dizziness. Initial EKG suggests sinus bradycardia with rate ofabout 30. Electrolytes notable for very mild hyperkalemia and mild creatinine elevation. I doubt this is reason for bradycardia. Patient did have clonidine recently increased therefore first thought was bradycardia was due to this recent increase. I discussed with Dr. Solis, Cardiology, and our initial plan was to admit for monitoring while holding any AV lakshmi blocking agents. Unfortunately, while in ED, patient's heart rate continued to lower down to 25 to 28 bpm. A repeat EKG suggests that rhythm isnow junctional. Discussed with Dr. Solis again and plan is now [facility] ICU post pacemaker placement. Dr. Solis discussed with Dr. Vega who will be performing the procedure. Updated patient and multiple times and answered all the questions. Patient transferred to [facility]. Critical Care Time: was 50 minutes for this patient excluding procedures Diagnosis: ICD-10-CM 1. 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 Symptomatic bradycardia R00.1 Scribe Disclosure: I, Essence Hook, am serving as a scribe at 12:41 PM on 10/14/2021 to document services personally performed by Harshil Maldonado MD based on my observations and the provider's statements to me. Harshil Maldonado MD 10/14/211641 [facility] documented in this encounter Miscellaneous Notes Pre-Procedure - Mahendra Vega MD - 10/14/2021 2:23 PM CST GENERAL PRE-PROCEDURE: Written consent obtained?: Yes Risks and benefits: Risks, benefits and alternatives were discussed Consent given by: Patient Patient states understanding of procedure being performed: Yes Patient's understanding of procedure matches consent: Yes Procedure consent matches procedure scheduled: Yes Expected level of sedation: Moderate Appropriately NPO: Yes ASA Class: 4 Mallampati : Grade 3- soft palate visible, posterior pharyngeal wall not visible Lungs: Lungs clear with good breath sounds bilaterally Heart: Other (comment) Heart exam comment: Bradycardic History & Physical reviewed: History and physical reviewed and no updates needed Statement of review: I have reviewed the lab findings, diagnostic data, medications, and the plan for sedation [facility] documented in this encounter Plan of Treatment Upcoming Encounters Date Type Specialty Care Team Description 05/15/2022 Hospital Encounter Surgery Singh Torres MD [facility] [address] [place] [phone] (Wo rk) 05/15/2022 Surgery Surgery Neo Torres MD BLEPHAROPLASTY BILATERAL [facility] PTOSIS REPAIR BILATERAL [address] [place] [phone] (Wo rk) 06/25/2022 Ancillary Procedure Cardiology Kirk Silver MD [address] [place] [id number] (Wo rk) Scheduled Procedures Name Priority Associated Diagnoses Date/Time REPAIR, PTOSIS, BILATERAL, Dermatochalas is 05/15/2022 7:30 AM CDT WITH BILATERAL BLEPHAROPLASTY 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 EKG 12-LEAD, TRACING STAT 10/14/2021 1:40 PM R esults for this ONLY [facility] procedure are i n the results section. EXTRA TUBE STAT 10/14/2021 12:31 Results for this PM [facility] procedure are i n the results section. EXTRA PURPLE TOP TUBE STAT 10/14/2021 12:31 Re sults for this PM [facility] procedure are i n the results section. EXTRA GREEN TOP STAT 10/14/2021 12:31 Results for this (LITHIUM HEPARIN) PM [facility] procedure are in TUBE the results section. EXTRA GREEN TOP STAT 10/14/2021 12:31 Results for this (LITHIUM HEPARIN) PM [facility] procedure are in TUBE the results section. EXTRA RED TOP TUBE STAT 10/14/2021 12:31 Resul ts for this PM [facility] procedure are i n the results section. EXTRA BLUE TOP TUBE STAT 10/14/2021 12:31 Resu lts for this PM [facility] procedure are i n the results section. CBC WITH PLATELETS STAT 10/14/2021 12:31 Resul ts for this AND DIFFERENTIAL PM [facility] procedure a re in the results section. CBC WITH PLATELETS & STAT 10/14/2021 12:31 Res ults for this DIFFERENTIAL PM [facility] procedure are i n the results section. TROPONIN I STAT 10/14/2021 12:31 Results for this PM [facility] procedure are i n the results section. MAGNESIUM STAT 10/14/2021 12:31 Results for this PM [facility] procedure are i n the results section. BASIC METABOLIC PANEL STAT 10/14/2021 12:31 Re sults for this PM [facility] procedure are i n the results section. EKG 12-LEAD, TRACING STAT 10/14/2021 12:10 Res ults for this ONLY PM [facility] procedure are i n the results section. documented in this encounter Results CV TEMPORARY PACEMAKER INSERTION (10/14/2021 3:20 PM [facility]) Anatomical Region Laterality Modality Radio Fluoroscopy Specimen (Source) Anatomical Location Collection Method / Collectio n Time Received Time / Laterality Volume Narrative 10/14/2021 3:40 PM [facility] 1. ??Successful temporary pacemaker placement via RFV. ??Capture threshold 0.2 mA. 2. ??Initial PPM settings: ??60 bpm, 10 mA Temporary Pacemaker Rate= 60bpm Paced mA= 10 Plan - Strict bedrest while temporary pacemak er in place - Transfer to [facility] for management of temp orary pacemaker and consideration of permanent pacemaker implantation - Avoid negative chronotropic agents - Further plans per inpatient cardiology and hospital medicine teams Comments/Patient Narrative 70 yo M with symptomatic junctional kush ycardia, here for urgent temporary PM implantation Cath Procedure details No Complications - Patient tolerated pro cedure well DESCRIPTION: 1. Consent obtained with discussion of r isks. All questions were answered. 2. Sterile prep and procedure. 3. Access: Local anesthetic with lidocai ne 4. Location with Sheaths: Right Femoral Vein: A 21 gauge micropunc ture needle with Sonosite and fluoroscopic guidance was used to establish vascular access. Access was successful. A 10 cm 6 Pashto sheath was placed. 5. Sheath Management: The 6F RFV sheath was sutured in place. 6. Estimated blood loss: < 5 ml The attending interventional cardiologis t was present and supervised all critical aspects the procedure. Fidencio Solis MD CV CARDIAC CATH ORDERABLES EKG 12-lead, tracing only (10/14/2021 1:40 PM [facility]) Component Value Ref Range Test Analysis Performed Pathologis t Method Time At Signature Systolic Blood mmHg RADIOLOGY Pressure RESULTS Diastolic Blood mmHg RADIOLOGY Pressure RESULTS Ventricular Rate 27 BPM RADIOLOGY RESULTS Atrial Rate 0 BPM RADIOLOGY RESULTS OR Interval ms RADIOLOGY RESULTS QRS Duration 102 ms RADIOLOGY RESULTS QT 470 ms RADIOLOGY RESULTS QTc 314 ms RADIOLOGY RESULTS P [place] degrees RADIOLOGY RESULTS R AXIS 32 degrees RADIOLOGY RESULTS T [place] 67 degrees RADIOLOGY RESULTS Interpretation Junctional bradycardia RA DIOLOGY ECG Low voltage QRS RESULTS Nonspecific ST and T wave abnormality Abnormal ECG When compared with ECG of 14-OCT-2021 12:10, (unconfirmed) Junctional rhythm has replaced Sinus rhythm Nonspecific T wave abnormality now evident in Anterior leads Confirmed by - EMERGENCY TRISTIAN Pryor PHYSICIAN ([id number]), subeditor SADIA MORA ([id number]) on 10/15/2021 7:36:44 AM Specimen Anatomical Collection Method Collection Time Receive d Time (Source) Location / / Volume Laterality 10/14/2021 1:40 PM 7:36 [facility] AM [facility] Harshil Maldonado MD ECG ORDERABLES Performing Organization Address City/State/ZIP Code Phon e Number RADIOLOGY RESULTS Extra Purple Top Tube (10/14/2021 12:31 PM [facility]) athologist Signature Hold Specimen [facility] 10/14/2021 [facility] 1:46 PM [facility] Specimen Anatomical Collection Method / Collection Time Recei shyla Time (Source) Location / Volume Laterality Blood STRUCTURE OF RIGHT Venipuncture / 10/14/2021 12:31 02/2022 UPPER LIMB / Unknown PM [facility] 12:38 PM [facility] Unknown Harshil Maldonado MD LAB - BLOOD ORDERABLES Performing Organization Address City/State/ZIP Code Phon [place] [address] Care [facility] [address] Lab (1st floor, no room number) Extra Green Top (Talmo Heparin) Tube (10/14/2021 12:31 PM [facility]) athologist Signature Hold Specimen [facility] 10/14/2021 [facility] 1:46 PM [facility] Specimen Anatomical Collection Method / Collection Time Recei shyla Time (Source) Location / Volume Laterality Blood STRUCTURE OF RIGHT Venipuncture / 10/14/2021 12:31 02/2022 UPPER LIMB / Unknown PM [facility] 12:37 PM [facility] Unknown Harshil Maldonado MD LAB - BLOOD ORDERABLES Performing Organization Address City/State/[place] [address] Care Lab [address] Lab (1st floor, no room number) Extra Green Top (Talmo Heparin) Tube (10/14/2021 12:31 PM [facility]) P athologist Signature Hold Specimen [facility] 10/14/2021 [facility] 1:46 PM [facility] Specimen Anatomical Collection Method / Collection Time Recei shyla Time (Source) Location / Volume Laterality Blood STRUCTURE OF RIGHT Venipuncture / 10/14/2021 12:31 02/2022 UPPER LIMB / Unknown PM [facility] 12:37 PM [facility] Unknown Harshil Maldonado MD LAB - BLOOD ORDERABLES Performing Organization Address City/State/[place] [address] Care Lab [address] Lab (1st floor, no room number) Extra Red Top Tube (10/14/2021 12:31 PM [facility]) athologist Signature Hold Specimen [facility] 10/14/2021 [facility] 1:46 PM [facility] Specimen Anatomical Collection Method / Collection Time Recei shyla Time (Source) Location / Volume Laterality Blood STRUCTURE OF RIGHT Venipuncture / 10/14/2021 12:31 02/2022 UPPER LIMB / Unknown PM [facility] 12:38 PM [facility] Unknown Harshil Maldonado MD LAB - BLOOD ORDERABLES Performing Organization Address City/State/[place] [address] Care Lab [address] Lab (1st floor, no room number) Extra Blue Top Tube (10/14/2021 12:31 PM [facility]) athologist Signature Hold Specimen [facility] 10/14/2021 [facility] 1:46 PM [facility] Specimen Anatomical Collection Method / Collection Time Recei shyla Time (Source) Location / Volume Laterality Blood STRUCTURE OF RIGHT Venipuncture / 10/14/2021 12:31 02/2022 UPPER LIMB / Unknown PM [facility] 12:38 PM [facility] Unknown Harshil Maldonado MD LAB - BLOOD ORDERABLES Performing Organization Address City/State/ZIP Code [place] [address] Care Lab [address] Lab (1st floor, no room number) Magnesium (10/14/2021 12:31 PM [facility]) athologist Signature Magnesium 2.3 1.6 - 2.3 10/14/2021 [facility] mg/dL 2:32 PM [facility] Specimen Anatomical Collection Method / Collection Time Recei shyla Time (Source) Location / Volume Laterality Blood STRUCTURE OF RIGHT Venipuncture / 10/14/2021 12:31 02/2022 UPPER LIMB / Unknown PM [facility] 12:37 PM [facility] Unknown Harshil Maldonado MD LAB - BLOOD ORDERABLES Performing Organization Address City/State/ZIP Code [place] [address] Care Lab [address] Lab (1st floor, no room number) (ABNORMAL) CBC with platelets and differential (10/14/2021 12:31 PM [facility]) [facility] gist Method Time Signature WBC Count 8.3 4.0 - 10/14/2021 [facility] 11.0 12:41 PM [facility] 10e3/uL RBC Count 4.01 (L) 4.40 - 10/14/2021 [facility] 5.90 12:41 PM [facility] 10e6/uL Hemoglobin 11.2 (L) 13.3 - 10/14/2021 [facility] 17.7 g/dL 12:41 PM [facility] Hematocrit 35.1 (L) 40.0 - 10/14/2021 [facility] 53.0 % 12:41 PM [facility] MCV 88 78 - 100 10/14/2021 [facility] fL 12:41 PM [facility] MCH 27.9 26.5 - 10/14/2021 [facility] 33.0 pg 12:41 PM [facility] MCHC 31.9 31.5 - 10/14/2021 [facility] 36.5 g/dL 12:41 PM [facility] RDW 14.7 10.0 - 10/14/2021 [facility] 15.0 % 12:41 PM [facility] Platelet Count 187 150 - 450 10/14/2021 [facility] 10e3/uL 12:41 PM [facility] % Neutrophils 68 % 10/14/2021 [facility] 12:41 PM [facility] % Lymphocytes 17 % 10/14/2021 [facility] 12:41 PM [facility] % Monocytes 10 % 10/14/2021 [facility] 12:41 PM [facility] % Eosinophils 4 % 10/14/2021 [facility] 12:41 PM [facility] % Basophils 1 % 10/14/2021 [facility] 12:41 PM [facility] % Immature 0 % 10/14/2021 [facility] Granulocytes 12:41 PM [facility] NRBCs per 100 0 <1 /100 10/14/2021 [facility] WBC 12:41 PM [facility] Absolute 5.7 1.6 - 8.3 10/14/2021 [facility] Neutrophils 10e3/uL 12:41 PM [facility] Absolute 1.4 0.8 - 5.3 10/14/2021 [facility] Lymphocytes 10e3/uL 12:41 PM [facility] Absolute 0.8 0.0 - 1.3 10/14/2021 [facility] Monocytes 10e3/uL 12:41 PM [facility] Absolute 0.3 0.0 - 0.7 10/14/2021 [facility] Eosinophils 10e3/uL 12:41 PM [facility] Absolute 0.1 0.0 - 0.2 10/14/2021 [facility] Basophils 10e3/uL 12:41 PM [facility] Absolute 0.0 <=0.4 10/14/2021 [facility] Immature 10e3/uL 12:41 PM [facility] Granulocytes Absolute NRBCs 0.0 10e3/uL 10/14/2021 [facility] 12:41 PM [facility] Specimen Anatomical Collection Method / Collection Time Recei shyla Time (Source) Location / Volume Laterality Blood STRUCTURE OF RIGHT Venipuncture / 10/14/2021 12:31 02/2022 UPPER LIMB / Unknown PM [facility] 12:38 PM [facility] Unknown Harshil Maldonado MD LAB - BLOOD ORDERABLES Performing Organization Address City/State/ZIP Code Phon [place] [address] Care Lab [address] Lab (1st floor, no room number) Troponin I (now) (10/14/2021 12:31 PM [facility]) P athologist Signature Troponin I High 27 <79 ng/L 10/14/2021 LABORATORY Sensitivity 1:03 PM [facility] Comment: This Troponin-I result was obta ined using a Siemens Dimension Five Points High Sensitivity Troponin-I assay (TNIH). Eff ective 07/02/21, nine labs/sites in the [facility] switched from a Siemens Five Points Contemporary Troponin I assay (CTNI) to a Siemens Five Points High-Sensitivity Troponi n I assay (TNIH). Specimen Anatomical Collection Method / Collection Time Recei shyla Time (Source) Location / Volume Laterality Blood STRUCTURE OF RIGHT Venipuncture / 10/14/2021 12:31 02/2022 UPPER LIMB / Unknown PM [facility] 12:37 PM [facility] Unknown Harshil Maldonado MD LAB - BLOOD ORDERABLES Performing Organization Address City/[facility]/ZIP Code Phon [place] [address] Care Lab [address] Lab (1st floor, no room number) (ABNORMAL) Basic metabolic panel (BMP) (10/14/2021 12:31 PM [facility]) Patholo gist Method Time Signature Sodium 138 133 - 144 10/14/2021 LABORATORY mmol/L 12:59 PM [facility] Potassium 5.4 (H) 3.4 - 5.3 10/14/2021 [facility] mmol/L 12:59 PM [facility] Chloride 110 (H) 94 - 109 10/14/2021 LABORATORY mmol/L 12:59 PM [facility] Carbon Dioxide 24 20 - 32 10/14/2021 LABORATORY (CO2) mmol/L 12:59 PM [facility] Anion Gap 4 3 - 14 10/14/2021 [facility] mmol/L 12:59 PM [facility] Urea Nitrogen 50 (H) 7 - 30 10/14/2021 [facility] mg/dL 12:59 PM [facility] Creatinine 1.37 (H) 0.66 - 10/14/2021 [facility] 1.25 mg/dL 12:59 PM [facility] Calcium 9.0 8.5 - 10.1 10/14/2021 LABORATORY mg/dL 12:59 PM [facility] Glucose 100 (H) 70 - 99 10/14/2021 [facility] mg/dL 12:59 PM [facility] GFR Estimate 55 (L) >60 10/14/2021 LABORATORY mL/min/1.7 12:59 PM [facility] 3m2 Comment: Effective July 30, 2021 eGF Rcr in adults is calculated using the 2020 CKD-EPI creatinine equation which includ es age and gender (Prateek et al., NEJM, DOI: 10.1056/CXCQpz3858125) Specimen Anatomical Collection Method / Collection Time Recei shyla Time (Source) Location / Volume Laterality Blood STRUCTURE OF RIGHT Venipuncture / 10/14/2021 12:31 02/2022 UPPER LIMB / Unknown PM [facility] 12:37 PM [facility] Unknown Harshil Maldonado MD LAB - BLOOD ORDERABLES Performing Organization Address City/State/ZIP Code [place] [address] Care Lab [address] Lab (1st floor, no room number) EKG 12-lead, tracing only (10/14/2021 12:10 PM [facility]) Component Value Ref Range Test Analysis Performed Pathologis t Method Time At Signature Systolic Blood mmHg RADIOLOGY Pressure RESULTS Diastolic Blood mmHg RADIOLOGY Pressure RESULTS Ventricular Rate 32 BPM RADIOLOGY RESULTS Atrial Rate 32 BPM RADIOLOGY RESULTS OR Interval 128 ms RADIOLOGY RESULTS QRS Duration 106 ms RADIOLOGY RESULTS QT 466 ms RADIOLOGY RESULTS QTc 340 ms RADIOLOGY RESULTS P [place] 48 degrees RADIOLOGY RESULTS R AXIS 40 degrees RADIOLOGY RESULTS T [place] 29 degrees RADIOLOGY RESULTS Interpretation Sinus bradycardia RADIOLO GY ECG Nonspecific T wave abnormality RESULTS Abnormal ECG No previous ECGs available Specimen Anatomical Collection Method Collection Time Receive d Time (Source) Location / / Volume Laterality 10/14/2021 12:10 10/14/2021 2:27 PM [facility] PM [facility] Harshil Maldonado MD ECG ORDERABLES Performing Organization Address City/State/ZIP Code Phon e Number RADIOLOGY RESULTS documented in this encounter Visit Diagnoses Diagnosis Junctional escape rhythm - Primary Other premature beats Symptomatic bradycardia Other specified cardiac dysrhythmias Junctional escape rhythm Other premature beats Junctional bradycardia Other specified cardiac dysrhythmias 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 documented in this encounter Administered Medications Inactive Administered Medications - up to 3 most recent administrations Medication Order MAR Action Action Date Dose Rate Site fentaNYL (PF) (SUBLIMAZE) Given 10/14/2021 2:53 PM [facility] 50 mcg injection ONCE PRN, Administer over 3-5 Minutes, Starting on Thu10/14/21 at 1453, Cardiac Intra-procedure lidocaine 1 % Given 10/14/2021 2:54 PM [facility] 8 mLs Right Thigh ONCE PRN, Starting on Thu10/14/21 at 1454, Cardiac Intra-procedure midazolam (VERSED) injection Given 10/14/2021 2:54 PM [facility] 1 mg Administer over 2 Minutes, ONCE PRN, Starting on Thu10/14/21 at 1454, Cardiac Intra-procedure documented in this encounter Active and Recently Administered Medications Times are shown in [facility]. PRN Medication Order 10/12/2021 10/13/2021 10/14/2021 fentaNYL (PF) (SUBLIMAZE) injection 1453 (Given - Provider: Khari Morales RN) ONCE PRN, Administer over 3-5 Minutes, S tarting on Thu10/14/21 at 1453, Cardiac Intra-procedure lidocaine 1 % 1454 (Given - Pr ovider: Mahendra Vega MD) ONCE PRN, Starting on Thu10/14/21 at 1454, Cardiac Intra-procedur e midazolam (VERSED) injection 145 4 (Given - Provider: Khari Morales RN) Administer over 2 Minutes, ONCE PRN, Sta rting on Thu10/14/21 at 1454, Cardiac Intra-procedure documented in this encounter Care Teams Student Success Advisor Relationship Specialty Start Date End Date Anatoliy Jackson PCP - General 05/14/12 Heath More PCP - Internal Medicine INTERNAL MEDICINE - 01/06/14 MD Andreas ENDOCRINOLOGY, [facility] [address] [place] [address] Peter Gipson PCP - Urology 04/02/15 MD Jordan [facility] [address] [facility] [address] [place], [place] [id number] Peter Mcmullen Assigned Musculoskeletal 06/01/20 MD Mahendra Provider [facility] [facility] [address] [place], [place] [id number] Ailyn Julien Assigned Heart and 06/30/21 A, [employer]TER OUT Vascular Provider [address] [place] [id number] Ailyn Julien Nurse Practitioner Cardiovascular Disease 2 A, [employer] SETTER OUT [address] [place] [phone] Fidencio Solis MD MD Cardiovascular Disease 08/21/[address], [facility] [address] [place] [id number] documented as of this encounter
--- OUTSIDE RECORDS SUMMARY | 2022-05-02 12:23 | XMS_ITS | Encounter Summary ---
:1950 Author Organization [place] Address [address] [place] [address] Care Team Providers Name Role Phone Anatoliy Jackson MD Primary Care Provider Heath More MD Unavailable Peter Gipson MD Unavailable Peter Mcmullen MD Unavailable Giuliana Gomez STADIUM MANAGER BALANCE SCREWHEAD POLISHER Unavailable Giuliana Gomez APRN BALANCE SCREWHEAD POLISHER Unavailable [phone] Fidencio Solis MD Unavailable Reason for Visit Auth/Cert Specialty Diagnoses / Procedures Referred By Contact Refer red To Contact Coronary Intensive Diagnoses Bradycardia pacemaker placement Bradycardia Coronary Care Care Unit [address] , [address] [place] [phone] Phone: Referral ID Status Reason Start Date Expiration Date Visits Requ ested Visits Authorized [id number] 1 1 Encounter Details Date Type Department Care Team Description 10/15/2021 Surgery [facility] Alvarado Syed P [facility] Lynne clarke MD Care [address] [place] [address] [place] [id number] [phone] Surgery Details Date/Time Status Location OR Service Patient Case Case Traum a Class Class Type Case? 10/15/21 11:30 Posted SH HEART SH Cath Cardiology Inpatient AM CARDIAC Lab 4 MODEL TECHNICIAN Panel 1 Procedure LRB Anes Op Region Wound Class Commen ts EP Pacemaker Left Conscious Sedation Heart Surgeon Surgeon Role Service Panel Alvarado Syed MD Primary Cardiology 1 documented in this [...] with No / Unsure 10/14/2021 11:58 AM TIP CUTTER someone who was confirmed or 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 documented as of this encounter Last Filed Vital Signs Vital Sign Reading Time Taken Comments Blood Pressure 146/72 10/15/2021 12:00 PM TIP CUTTER Pulse 61 10/15/2021 12:00 PM TIP CUTTER Temperature 37 ??C (98.6 ??F) 10/15/2021 12:00 PM TIP CUTTER Respiratory Rate 14 10/15/2021 12:57 PM TIP CUTTER Oxygen Saturation 99% 10/15/2021 12:00 PM TIP CUTTER Inhaled Oxygen Concentration - - Weight 96.5 kg (212 lb 11.9 oz) 10/15/2021 5:00 AM TIP CUTTER Height - - Body Mass Index 29.67 10/14/2021 12:01 PM TIP CUTTER documented in this encounter Discharge Summaries Ebenezer Luu MD - 10/16/2021 11:[address] [facility] Discharge Summary Nikita Anderson Date of : [...] mouth 2 times daily (with meals) Am [id number] Qty: 60 tablet, Refills: 3 Associated Diagnoses: [...] - 1630: 1:5 1630 - 2130: 1:3 213 - 0000: 1:5 Corection Factor (Sensitivity) and times: 0000 - 0500: 1 unit: 35 mg/dL 0500 - 2130: 1 unit: 25 mg/dL 2129 - 0000: 1 unit: 35 mg/dL BLOOD [...] 3 Associated Diagnoses: Coronary artery disease involving northern cheyenne coronary artery of northern cheyenne heart without angina pectoris; Hyperlipidemia LDL goal [...] are recommended: CBC, BMP. Cardiac follow-up per [facility] Cardiology. Activity Your activity upon discharge: [...] h/o prostate cancer, who initially presented to [facility] 10/14/2021 with dizziness and found to be bradycardic with junctional rhythm. Temporary pacemaker placed and transferred to [facility] 10/14/2021 for management. Problem Oriented Hospital Course: ?? Symptomatic bradycardia with junctional rhythm - s/p PPM placement 10/15/2021. * Initially presented to [facility] 10/14 with dizziness for the last few days SHELLS INSPECTOR; of note, clonidine wasrecently increased SHELLS INSPECTOR and also on carvedilol SHELLS INSPECTOR. On initial evaluation at [facility], ECG initially showed marked sinus bradycardia and repeat ECG showed junctional rhythm. Trop negative. Evaluated by Cardiology and underwent temporary pacemaker placement 10/14 and subsequently transferred to [facility]. * SHELLS INSPECTOR carvedilol and clonidine held on admit. * [...] (benign essential; h/o difficult to control BP's). [SHELLS INSPECTOR: amlodipine 10 mg daily; clonidine 0.2 mg BID (recently increased SHELLS INSPECTOR); carvedilol 6.25 mg BID;hydralazine 75 mg TID; ISMN 60 mg daily; lisinopril 10 mg daily.] * Echo 05/2021 showed LVEF 46% with WMA's; RV moderate decreased systolic function. * Clonidine had recently been increased from 0.1 mg to 0.2 mg BID SHELLS INSPECTOR. SHELLS INSPECTOR clonidine and carvedilol held on admit. * Carvedilol restarted at increased 10/16. - Continue ASA, rosuvastatin, PRN NTG. - Continue amlodipine 10 mg daily, carvedilol 12.5 mg BID (increased), hydralazine 75 mg TID, ISMN 60 mg daily, lisinopril 10 mg daily. - Stop clonidine at discharge. - Follow-up outpatient. - Pt has follow-up with [facility] regarding labile and resistant hypertension. Anemia, suspect chronic component. * Hgb 11.2 on admit. No overt clinical signs of major bleeding. Recent Labs Lab 10/15/21 0530 10/14/21 1231 HGB 10.2* 11.2* - Monitor CBC outpatient. DM1. Polyneuropathy. Hypoglycemic episode. [SHELLS INSPECTOR: insulin pump basal rate 1.1U/hr 3420-9183, 1.4U/hr 2611-2278; boluses for carbs (carb ratios varied based on time) and for correction.] * Hgb A1C 7.4 10/14/2021. * Hypoglycemic am 10/15 related to NPO status. Recent Labs Lab 10/16/21 0542 10/15/21 0530 10/14/21 1919 10/14/21 1231 GLC 102* 64* -- 100* A1C -- -- 7.4* -- - Continue SHELLS INSPECTOR regimen. CARLITOS. * Chronic and stable. - [...] 1120 COVID-19 Virus PCR to [facility] - Result Test received-See reflex to IDDL [...] brought to the cardiac electrophysiology laboratory at [facility] on 10/15/2021. I determined this patient to [...] RESULTS: A. Implanted leads: (i) RV lead: [employer] lead model 7841, serial [id number]. R-wave sensing 9.4 mV. Pacing threshold 0.4 V at 0.4 msec. Pacing impedance 755 ohms. (ii) RA lead: [employer] lead model 7840, serial [id number]. P-wave sensing 5.8 mV. Pacing threshold 0.4 V at 0.4 msec. Pacing impedance 550 ohms. B. Pulse generator: [employer] model L331 [address], serial [id number]. C. Programming: DDDR 60/130 bpm CONCLUSIONS: 1. Successful implantation of MRI-compatible dual-chamber permanent pacemaker. 2. No apparent in-lab complication. CUTTER documented in this encounter Discharge Instructions Discharge [...] large power tools, such as an industrial qualitative researcher, talk with your doctor. Follow-Up ?? Follow up in the device clinic as scheduled. You have an appointment scheduled for 10/28/21 at 1115. Your appointment is at [facility]. [address]. ?? 6 week device check is scheduled for 12/18/21 at 8:10am. At [facility] location. ?? Make regular follow-up appointments with your device clinic. They will check the pacemaker to make sure it???s working properly. When to Call Your Device Clinic [phone] Call your doctor immediately if you have [...] site) ?? Hiccups that won???t stop ?? [phone] [employer]. [address] [place] [address]. All rights reserved. This information is not intended as a substitute for professional medical care. Always follow your healthcare professional's instructions. [facility] in [place]: [phone] Device Clinic (Thursday to Thursday, 8am-4pm): [phone] *The device clinic is closed on weekends and holidays. Any calls received during this time will be answered on the next business day. For any urgent questions after hours, please call the main clinic number and you will be put incontact with the sales associate fishing environmental health technologist. CUTTER AttachmentsThe following attachments cannot be sent through Care Everywhere.(s) Home Care after a Pacemaker or ICD Implant (Bulgarian)PACEMAKERPACEMAKER DISCHARGE INSTRUCTIONSPacemaker Failure (Bulgarian)documented in this encounter Medications at Time of [...] hypertension daily (with meals) Am and 2029 clotrimazole (LOTRIMIN) Instill 5 drops into 0 1 % external solution left ear two times daily, lay with ear up for at least 10 minutes after use. Use a cotton ball with vaseline when showering to keep dry. Continuous Blood Gluc 0 Sensor (YouFastUnlock G6 SENSOR) MISC Copper Gluconate Take by [...] every tabletIndications: evening Coronary artery disease involving northern cheyenne coronary artery of northern cheyenne heart without angina pectoris, Hyperlipidemia LDL goal <70, S/P coronary artery stent placement documented as of this encounter Progress Notes Ebenezer Luu MD - 10/16/2021 11:02 AM CST [facility] Internal Medicine Hospitalist Progress Note 10/16/2021 I evaluated patient on the above date. Ebenezer Luu Jr., MD [phone] (p) Text Page Vocera Assessment & Plan [...] ??F (36.9 ??C) Pulse: [61-90] 83 Resp: [12-25] 22 BP: (146-190)/(72-90) 190/89 SpO2: [96 %-100 [...] brought to the cardiac electrophysiology laboratory at [facility] on 10/15/2021. I determined this patient to [...] RESULTS: A. Implanted leads: (i) RV lead: [employer] lead model 7841, serial [id number]. R-wave sensing 9.4 mV. Pacing threshold 0.4 V at 0.4 msec. Pacing impedance 755 ohms. (ii) RA lead: [employer] lead model 7840, serial [id number]. P-wave sensing 5.8 mV. Pacing threshold 0.4 V at 0.4 msec. Pacing impedance 550 ohms. B. Pulse generator: [employer] model L331 [address] MRI DR, serial [id number]. C. Programming: DDDR 60/130 bpm CONCLUSIONS: 1. [...] glycol, senna-docusate OR senna-docusate, sodium chloride (PF) CUTTER Mouna Mendes - 10/16/2021 10:51 AM CST [...] as scheduled on 10/28/21 at 11:15 at [facility] location. 6 week follow up appointment has also been scheduled for 12/18/21 at 8:10am at [place] location. CUTTER Carolyn Bright, CALLIE BALANCE SCREWHEAD POLISHER - 10/16/2021 8:19 AM CST EP Progress Note Assessment and Plan: Nikita Anderson is a 70-year-old male with history of coronary artery disease and previous CABG, HTN, HL, DM, CKD, CARLITOS who was admitted with symptomatic sinus/junctional bradycardia. The patient received a temporary pacemaker at [facility] and was transferred to [facility]. EP was consulted to assist with [...] Interrogation completed and stable sensing and [facility] RN education will be completed before discharge home 2. HTN Difficult to control in the past Carvedilol was restarted this am, but at 12.5 mg bid and can be titrated as needed SHELLS INSPECTOR amlodipine 10 mg every day, hydralazine 75 [...] SVG/PRDA. SVG to OM stump was occluded. SHELLS INSPECTOR on ASA, Imdur 60 (had been changed [...] is established pt of and Fadi Gomez CLINICAL PHARMACOLOGIST in [place]. Order placed to see Fadi for HTN/CORE [...] 04/29/2021 BILITOTAL 0.5 04/29/2021 INR 1.07 07/03/2021 CUTTER Associated attestation - Darrian Berman MD - 10/16/2021 10:28 AM TIP CUTTER ADDENDUM Patient seen and examined. Case discussed with PA/CLINICAL PHARMACOLOGIST. Agree with plan above. In summary, 70-yo [...] symmetric and grossly intact throughout. MD Carlos Christopher, Alvarado Davalos MD - 10/15/2021 1:21 PM CST Dictated. Successful dual-chamber pacemaker implantation ([employer]). Programmed DDDR 60/130 ppm. Temporary pacemaker was removed. No apparent complication. EBL 10-15 mL. Plan: -Chest x-ray and device interrogation in the a.m. -Routine post pacemaker precautions CUTTER Ebenezer Luu MD - 10/15/2021 11:57 AM CST [facility] Internal Medicine Hospitalist Progress Note 10/15/2021 I evaluated patient on the above date. Ebenezer Luu Jr., MD [phone] (p) Text Page Vocera Assessment & Plan New actions/orders today (10/15/2021) are underlined. Nikita Anderson is a 70 year old male admitted on 10/14/2021 with past medical history significant for obesity, DM1 with neuropathy, HTN, CAD s/p CABG (04/2021), CHF, CKD and h/o prostate cancer, who initially presented to [facility] 10/14/2021 with dizziness and found to be bradycardic with junctional rhythm. Temporary pacemaker placed and transferred to [facility] 10/14/2021 for management. ?? Symptomatic bradycardia with junctional rhythm. * Initially presented to [facility] 10/14 with dizziness for the last few days SHELLS INSPECTOR; of note, clonidine wasrecently increased SHELLS INSPECTOR and also on carvedilol SHELLS INSPECTOR. On initial evaluation at [facility], ECG initially showed marked sinus bradycardia and repeat ECG showed junctional rhythm. Trop negative. Evaluated by Cardiology and underwent temporary pacemaker placement 10/14 and subsequently transferred to [facility]. * SHELLS INSPECTOR carvedilol and clonidine held on admit. * 10/15: HR's improved after holding carvedilol and clonidine, but PPM still recommended as will benefit from BB in the future. - Plan PPM. - Continue to hold SHELLS INSPECTOR carvedilol and clonidine. - Appreciate Cardiology help. Hyperkalemia * Potassium level of 5.4 on admit 10/14. * Potassium normalized 10/15. Recent Labs Lab 10/15/21 0530 10/14/21 1922 10/14/21 1231 POTASSIUM 4.8 5.5* 5.4* MAG -- -- 2.3 - Monitor potassium. ?? CAD s/p CABG (04/2021). CHF (biventricular systolic, HFrEF). Hypertension (benign essential). [SHELLS INSPECTOR: amlodipine 10 mg daily; clonidine 0.2 mg BID; carvedilol 6.25 mg BID; hydralazine 75 mg TID; ISMN 60 mg daily; lisinopril 10 mg daily.] * Echo 05/2021 showed LVEF 46% with WMA's; RV moderate decreased systolic function. * SHELLS INSPECTOR clonidine and carvedilol held on admit. - Continue ASA, rosuvastatin, PRN NTG. - Continue amlodipine, hydralazine, ISMN, lisinopril. - Continue to hold clonidine and carvedilol. - Continue PRN IV hydralazine. - Monitor i/o's, daily wts. DM1. Polyneuropathy. Hypoglycemic episode. [SHELLS INSPECTOR: insulin pump basal rate 1.1U/hr 4676-1224, 1.4U/hr 8636-1906; boluses for carbs (carb ratios varied based on time) and for correction.] * Hgb A1C 7.4 10/14/2021. * Hypoglycemic am 10/15 related to NPO status. Recent Labs Lab 10/15/21 0530 10/14/21 1919 10/14/21 1231 GLC 64* -- 100* A1C -- [...] (PF), sodium chloride (PF), sodium chloride (PF) CUTTER documented in this encounter H&P Notes Luis Felipe Allan PA-C - 10/14/2021 7:20 PM CST [facility] History and Physical - Hospitalist Service Date of Admission: 10/14/2021 PRIMARY CARE PROVIDER: Anatoliy Jackson Assessment & Plan Nikita Anderson is a 70 year old male admitted on 10/14/2021. Past medical history significant for CAD s/p CABG (04/2021), Post-CABG atrial tachycardia versus atrial fib, Mild ischemic cardiomyopathy, HTN, HLP, Obesity, CARLITOS, DM1, Polyneuropathy, CKD, CARMEN, Prostatecancer who was directly admitted to [facility] due to symptomatic bradycardia/junctional rhythm. Patient presented to [facility] ED due to dizziness. He has been [...] Cardiology consult requested. - Telemetry. - Hold SHELLS INSPECTOR Coreg 6.25 mg BID and SHELLS INSPECTOR clonidine 0.2 mg BID. - NPO at midnight. Hyperkalemia Potassium level of 5.4. - Repeat potassium now. CAD s/p CABG (04/2021) HTN HLP - Resumed on SHELLS INSPECTOR ASA 325 mg/d. - Resumed on SHELLS INSPECTOR Norvasc 10 mg at bedtime, Hydralazine 75 mg TID, Imdur 60 mg/d, lisinopril 10 mg atbedtime. Hold parameters in place. - Hold SHELLS INSPECTOR Coreg 6.25 mg BID and SHELLS INSPECTOR clonidine 0.2 mg BID. - Resumed on SHELLS INSPECTOR Crestor 40 mg/d. - PRN IV hydralazine [...] pump. - Hypoglycemic protocol. - Resumed on SHELLS INSPECTOR gabapentin 300 mg BID. CKD stage 3 Baseline creatinine between 1.20-1.40. - Monitor. CARMEN - Resumed on SHELLS INSPECTOR Zoloft 50 mg/d. Prostate cancer S/p prostate [...] at this time. Luis Felipe Allan PA-C [facility] Securely message with the [employer] Console (learn more here) Text page via [employer] Paging/Directory Chief Complaint Direct admit due to symptomatic bradycardia/junctional rhythm. History is obtained from the patient and EMR. History of Present Illness Nikita Anderson is a 70 year old male with a past medical history significant for CAD s/p CABG (04/2021), Post-CABG atrial tachycardia versus atrial fib, Mild ischemic cardiomyopathy, HTN, HLP, Obesity, CARLITOS, DM1, Polyneuropathy, CKD, CARMEN, Prostate cancer who was directly admitted to [facility] due to symptomatic bradycardia/junctional rhythm. Patient presented to [facility] ED due to dizziness. He has been [...] events that led to his transfer to [facility]. Patient indicated that he occasionally has [...] Surgeon: Mahendra Vega MD; Location: HEART CARDIAC MODEL TECHNICIAN ??? CV CORONARY ANGIOGRAM N/A 03/13/2021 Procedure: Coronary Angiogram; Surgeon: Darwin Valero MD; Location: HEART CARDIAC MODEL TECHNICIAN ??? CV HEART CATHETERIZATION WITH POSSIBLE INTERVENTION N/A 07/03/2021 Procedure: Coronary Angiogram; Surgeon: Mahendra Vega MD; Location: [facility] CARDIAC CATHLAB ??? CV INSTANTANEOUS WAVE-FREE RATIO N/A 03/13/2021 Procedure: Instantaneous Wave-Free Ratio; Surgeon: Darwin Valero MD; Location: HEART CARDIAC MODEL TECHNICIAN ??? CV LEFT HEART CATH N/A 07/03/2021 Procedure: Left Heart Cath; Surgeon: Mahendra Vega MD; Location: HEART CARDIAC MODEL TECHNICIAN ??? CV LEFT VENTRICULOGRAM N/A 07/03/2021 Procedure: Left Ventriculogram; Surgeon: Mahendra Vega MD; Location: HEART CARDIAC MODEL TECHNICIAN ??? HC LEFT HEART CATHETERIZATION 04/01/2016 mild [...] needed. Patient resides in a house in [place], [place] with his He is a former [...] their history, physical and plan for Nikita Anderson. I did not participate in a shared visit by interviewing or examining the patient and this should be billed as an advanced practice provider only visit. Fadi Horn Date of Service (when I saw the patient): I did not personally see this patient today. documented in this encounter Consult Notes Riddhi Lemus PA-C - 10/15/2021 8:20 AM CSTAssociated Order(s): ELECTROPHYSIOLOGY IP CONSULT [facility] Electrophysiology Consultation Date of Admission: 10/14/2021 Date of Consult (When we saw the patient): 10/15/21 Assessment & Plan Nikita Anderson is a 70 year old male who was admitted from [facility] (10/14) on the same day 10/14/2021. Wewere asked to see the patient for symptomatic bradycardia. 1. Symptomatic bradycardia - - Had increasing dizziness a/w increased exertional SOB/chest tightness. Noted HR in 30s and came toER at [place], were temp pacer placed - SHELLS INSPECTOR on Coreg 6.25 mg BID and clonidine [...] increasing episodes oflightheadedness/dizziness. He understands that his northern chey[place] HR has improved since holding clonidine and [...] requiring explantat ion of the device and intermediate manager antibiotics. We also briefly discussed follow up [...] This did not explain echo findings. - SHELLS INSPECTOR on ASA, Imdur 60 (had been changed [...] ischemic CM (46% 05/2021), who presented to [facility] on 10/14 d/t dizziness thought to be d/t increased clonidine dose. He then developed SOB, chest tightness and lightheadedness while walking. HR was only in the 30s and came to ER. In ER, noted to have SB and then junctional bradycardia for which temp pacer placed 10/14. [facility] same day. Currently, tele with SR 63 [...] Coronary Graft; Surgeon: Mahendra Vega MD; Location: [facility] CARDIAC MODEL TECHNICIAN ??? CV CORONARY ANGIOGRAM N/A 03/13/2021 Procedure: Coronary Angiogram; Surgeon: Darwin Valero MD; Location[facility] CARDIAC MODEL TECHNICIAN ??? CV HEART CATHETERIZATION WITH POSSIBLE INTERVENTION N/A 07/03/2021 Procedure: Coronary Angiogram; Surgeon: Mahendra Vega MD; Location: [facility] CARDIAC CATHLAB ??? CV INSTANTANEOUS WAVE-FREE RATIO N/A 03/13/2021 Procedure: Instantaneous Wave-Free Ratio; Surgeon: Darwin Valero MD; Location: HEART CARDIAC MODEL TECHNICIAN ??? CV LEFT HEART CATH N/A 07/03/2021 Procedure: Left Heart Cath; Surgeon: Mahendra Vega MD; Location: HEART CARDIAC MODEL TECHNICIAN ??? CV LEFT VENTRICULOGRAM N/A 07/03/2021 Procedure: Left Ventriculogram; Surgeon: Mahendra Vega MD; Location: HEART CARDIAC MODEL TECHNICIAN ??? HC LEFT HEART CATHETERIZATION 04/01/2016 mild [...] - 1630: 1:5 1630 - 2130: 1:3 213 - 0000: 1:5 Corection Factor (Sensitivity) and [...] recent exposure or clinical presentation suggests COVID-19. [facility] Laboratories are certified under the Clinical [...] Platelet Count 185 150 - 450 10e3/uL CUTTER Associated attestation - Darrian Berman MD - 10/15/2021 11:08 AM TIP CUTTER ADDENDUM Patient seen and examined. Case discussed with PA/CLINICAL PHARMACOLOGIST. Agree with plan above. In summary, 70-yo M with a Hx of HTN, HL, CARLITOS, DM, CKD, CAD (previous PCI and CABG; DOUGLASS to LAD, rSVG to PDA, rSVG to OM2), who p/w with dizziness and was found to have symptomatic bradycardia associated with sinus node dysfunction. The temporary pacing wire was placed and he was transferred to [facility] for consideration for pacemaker plantation. Patient [...] states understanding all follow up care instructions. CUTTER Plan of Care - Navi Roe RN - 10/16/2021 7:34 AM CST Pt stable over night, VSS, no c/o Chest pain or sob. Tele:SR. Left shoulder c/d/I post PPM, no c/o pain. Pt slept well, no new issues noted. Pt may discharge today. CUTTER Plan of Care - Elvira Velázquez RN [...] Reviewed With: patient Overall Patient Progress: improving CUTTER Plan of Care - Nydia Canseco RN - 10/15/2021 3:08 PM CST Pt alert and oriented x4. Pt denies pain. Denies shortness of breath. PT denies nausea. Pt down to EP and has a permanent pacemaker placed and back to room at 1400. Site is intact with small dot of dried blood on dressing. Pt temporary venous pacemaker removed and 5 canadian sheath removed as well from R groin. Site is soft, no hematoma present. Pt ordered lunch and awaiting it. Pt in sinus rhythm, no paced beats noted from permanent pacemaker. Pt manages own insulin. Last BG 137. Pt and updated on plan of care. CUTTER Pre-Procedure - Alvarado Syed MD - 10/15/2021 12:43 PM TIP CUTTER GENERAL PRE-PROCEDURE: Procedure: PM Written consent obtained?: [...] data, medications, and the plan for sedation CUTTER Plan of Care - Chloe Diaz RN [...] permanent pacer insertion 10/15. NPO since midnight. CUTTER Provider Notification - Chloe Diaz RN - 10/15/2021 1:30 AM CST MD Notification Notified Person: MD Notified Person Name: Kike Notification Date/Time: 12909/17/2021 Notification Interaction: AMCOM Purpose of Notification: [id number] Pt. requesting melatonin d/t hard time sleeping. Chloe Aiken RN Orders Received: Melatonin 3mg Comments: CUTTER Plan of Care - Alethea Guerra RN - 10/14/2021 11:20 PM CST [id number] A&O x 4. Patient denies pain. VSS, on RA, besides known HTN. Strict bedrest d/t temporary pacer in R groin. R groin site, WDL.Tele: Frequently paced/SR. Temp pacer settings 60 bpm, 10 miliamps. Pt using personal insulin pump for checking BGs/insulin administration. Plan for EP consult tomorrow. Continue to Monitor. CUTTER Pharmacy - Alethea Sewell RP - 10/14/2021 10:20 PM CST Prescriber Notification Note The pharmacist has communicated with this patient's provider regarding a concern or therapy recommendation. Notified Person: Luis Felipe Allan PA-C Date/Time of Notification: 10/14/2021 @2210 Interaction: phone Concern/Recommendation: Insulin pump information updated on SHELLS INSPECTOR medication list. Ok to modify instructions in inpatient orders to reflect how insulin pump is running? TORB received to modify pump setting instructions in inpatient orders per medication reconciliation. Alethea Sewell, PharmD, BCPS CUTTER Pharmacy-Admission Medication History - Alethea Sewell RPH - 10/14/2021 10:11 PM CST Pharmacy Medication History Admission medication history interview status for the 10/14/2021 admission is complete. See [facility] admission navigator for prior to admission medications [...] been using the 25 mg regularly around 2029 daily. ?? Added Imdur (see below) In [...] Take 300 mg by mouth 2030 and 2300 10/13/2021 at pm Yes Yasir [...] every evening 10/13/2021 at pm Yes Fidencio Solis MD sertraline (ZOLOFT) 50 MG [...] sources available at the time of update(s) CUTTER Provider Notification - Alethea Guerra RN - 10/14/2021 9:12 PM CST Notification Notified Person: Notified Person Name: Rahel Notification Date/Time: 10/14/21 21:12 Notification Interaction: Page Purpose of Notification: 273 MILI...G. Pt is requesting to use his own insulin pump. Is it possible toget those orders put in vs SSI? Thanks! Orders Received: Comments: CUTTER documented in this encounter Plan of Treatment Upcoming Encounters Date Type Specialty Care Team Description 05/15/2022 Hospital Encounter Surgery Singh Torres MD [facility] [address] [place] [address] (Wo rk) 05/15/2022 Surgery Surgery Neo Torres MD BLEPHAROPLASTY BILATERAL [place] [facility] PTOSIS REPAIR BILATERAL [address] [place] [address] (Wo rk) 06/25/2022 Ancillary Procedure Cardiology Kirk Silver MD [address] [place] [address] (Wo rk) Scheduled Orders Name Type Priority [...] 10/16/2021 9:33 AM Resul ts for this TIP CUTTER procedure are i n the results section. EKG 12-LEAD, TRACING Routine 10/16/2021 8:03 AM R esults for this ONLY TIP CUTTER procedure are i n the results section. BASIC METABOLIC Routine 10/16/2021 5:42 AM Result s for this PANEL TIP CUTTER procedure are i n the results section. EP PACEMAKER Routine 10/15/2021 1:16 PM Bradycardia Results for this TIP CUTTER Near syncope procedure are in Junctional the results bradycardia section. TSH WITH FREE T4 Add-On 10/15/2021 5:30 AM Resul ts for this REFLEX TIP CUTTER procedure are i n the results section. BASIC METABOLIC Routine 10/15/2021 5:30 AM Result s for this PANEL TIP CUTTER procedure are i n the results section. CBC WITH PLATELETS Routine 10/15/2021 5:30 AM Res ults for this TIP CUTTER procedure are i n the results section. EP REPORT - HIM SCAN 10/15/2021 12:00 AM TIP CUTTER EP REPORT - HIM SCAN 10/15/2021 12:00 AM TIP CUTTER COVID-19 VIRUS STAT 10/14/2021 8:09 PM Results for this (CORONAVIRUS) BY PCR TIP CUTTER procedu re are in the results section. POTASSIUM STAT 10/14/2021 7:22 PM Results f or this TIP CUTTER procedure are i n the results section. HEMOGLOBIN A1C Routine 10/14/2021 7:19 PM Results for this TIP CUTTER procedure are i n the results section. documented in this encounter Results X-ray Chest 2 vws* (10/16/2021 9:33 AM TIP CUTTER) Anatomical Region Laterality Modality Chest Digital Radiography Specimen (Source) Anatomical Location Collection Method / Collectio n Time Received Time / Laterality Volume Impressions 10/16/2021 9:54 AM TIP CUTTER IMPRESSION: No acute disease. PATSY ORTIZ MD Narrative 10/16/2021 9:54 AM TIP CUTTER CHEST TWO VIEWS 10/16/2021 9:33 AM HISTORY: [...] EKG 12-lead, tracing only (10/16/2021 8:03 AM TIP CUTTER) Component Value Ref Range Test Analysis Performed Pathologis t Method Time At Signature Systolic Blood mmHg RADIOLOGY Pressure RESULTS Diastolic Blood mmHg RADIOLOGY Pressure RESULTS Ventricular Rate 80 BPM RADIOLOGY RESULTS Atrial Rate 80 BPM RADIOLOGY RESULTS FL Interval 156 ms RADIOLOGY RESULTS QRS Duration 106 ms RADIOLOGY RESULTS QT 366 ms RADIOLOGY RESULTS QTc 422 ms RADIOLOGY RESULTS P [place] 68 degrees RADIOLOGY RESULTS R AXIS 41 degrees RADIOLOGY RESULTS T [place] 67 degrees RADIOLOGY RESULTS Interpretation Sinus rhythm RADIOLOGY ECG Normal ECG RESULTS When compared with ECG of 14-OCT-2021 13:40, Sinus rhythm has replaced Junctional rhythm Vent. rate has increased BY ??53 BPM Nonspecific T wave abnormality no longer evident in Anterola teral leads Confirmed by MD CARLOS, FANNY Clarke ([id number]), order editor Patsy Leigh ([id number]) on 10/19/2021 1:41:52 PM Specimen Anatomical Collection Method Collection Time Receive d Time (Source) Location / / Volume Laterality 10/16/2021 8:03 AM 1:41 TIP CUTTER PM TIP CUTTER Alvarado Syed MD ECG ORDERABLES Performing Organization Address City/State/ZIP Code Phon e Number RADIOLOGY RESULTS (ABNORMAL) Basic metabolic panel (10/16/2021 5:42 AM TIP CUTTER) Analysis Performed At Patho logist Time Signature Sodium 144 133 - 144 10/16/2021 LABORATORY mmol/L 6:32 AM TIP CUTTER Potassium 4.7 3.4 - 5.3 10/16/2021 LABORATORY mmol/L 6:32 AM TIP CUTTER Chloride 114 (H) 94 - 109 10/16/2021 LABORATORY mmol/L 6:32 AM TIP CUTTER Carbon Dioxide 25 20 - 32 10/16/2021 LABORATORY (CO2) mmol/L 6:32 AM TIP CUTTER Anion Gap 5 3 - 14 10/16/2021 LABORATORY mmol/L 6:32 AM TIP CUTTER Urea Nitrogen 39 (H) 7 - 30 10/16/2021 LABORATORY mg/dL 6:32 AM TIP CUTTER Creatinine 1.22 0.66 - 10/16/2021 LABORATORY 1.25 mg/dL 6:32 AM TIP CUTTER Calcium 9.2 8.5 - 10.1 10/16/2021 LABORATORY mg/dL 6:32 AM TIP CUTTER Glucose 102 (H) 70 - 99 10/16/2021 LABORATORY mg/dL 6:32 AM TIP CUTTER GFR Estimate 63 >60 10/16/2021 LABORATORY mL/min/1.7 6:32 AM TIP CUTTER 3m2 Comment: Effective July 30, 2021 eGF Rcr in adults is calculated using the 2020 CKD-EPI creatinine equation which includ es age and gender (Prateek et al., NEJ, DOI: 10.1056/MYKHav2835268) Specimen Anatomical Collection Method / Collection Time Recei shyla Time (Source) Location / Volume Laterality Blood STRUCTURE OF LEFT Venipuncture / 10/16/2021 5:42 10/16 6:09 UPPER LIMB / Unknown AM TIP CUTTER AM TIP CUTTER Unknown Ebenezer Luu MD LAB - BLOOD ORDERABLES Performing Organization Address City/State/ZIP Code [place] [address] [facility] [address], [address] EP PACEMAKER (10/15/2021 1:16 PM TIP CUTTER) Anatomical Region Laterality Modality Radio Fluoroscopy Specimen (Source) Anatomical Location Collection Method / Collectio n Time Received Time / Laterality Volume Narrative 10/15/2021 1:30 PM TIP CUTTER PROCEDURES PERFORMED: 1. Implantation of dual-chamber permanen [...] to the cardiac e lectrophysiology laboratory at [facility] on 10/15/2021. I determined this patient to [...] RESULTS: A. ??Implanted leads: (i) RV lead: ??[employer] lead mo del 7841, serial [id number]. ??R-wave sensing 9.4 mV. ??Pacing threshold 0.4 V at 0.4 msec. ??Pacing impedance 755 ohms. ?? (ii) RA lead: ??[employer] lead m astrid 7840, serial [id number]. ??P-wave sensing 5.8 mV. ??Pacing threshold 0.4 V at 0.4 msec. ??Pacing impedance 550 ohms. ?? B. ??Pulse generator: [employer] model L[address], serial [id number]. C. ??Programming: DDDR 60/130 bpm CONCLUSIONS: 1. ??Successful implantation of MRI-comp atible dual-chamber permanent pacemaker. 2. ??No apparent in-lab complication. Riddhi Lemus PA-C CV ELECTROPHYSIOLOGY ORDE RABLES TSH with free T4 reflex (Add on or recollect) (10/15/2021 5:30 AM TIP CUTTER) athologist Signature TSH 3.12 0.40 - 4.00 10/15/2021 LABORATORY mU/L 8:57 AM TIP CUTTER Specimen Anatomical Collection Method / Collection Time Recei shyla Time (Source) Location / Volume Laterality Blood STRUCTURE OF LEFT Venipuncture / 10/15/2021 5:30 10/15 5:40 HAND / Unknown Unknown AM TIP CUTTER AM TIP CUTTER Riddhi Lemus PA-C LAB - BLOOD ORDERABLES Performing Organization Address City/State/ZIP Code [place] [address] Care [facility] [address] 1[address], Room [address]B (ABNORMAL) CBC with platelets (10/15/2021 5:30 AM TIP CUTTER) Patholo gist Method Time Signature WBC Count 9.0 4.0 - 11.0 10/15/2021 LABORATORY 10e3/uL 5:43 AM TIP CUTTER RBC Count 3.67 (L) 4.40 - 10/15/2021 LABORATORY 5.90 5:43 AM TIP CUTTER 10e6/uL Hemoglobin 10.2 (L) 13.3 - 10/15/2021 LABORATORY 17.7 g/dL 5:43 AM TIP CUTTER Hematocrit 31.7 (L) 40.0 - 10/15/2021 LABORATORY 53.0 % 5:43 AM TIP CUTTER MCV 86 78 - 100 10/15/2021 LABORATORY fL 5:43 AM TIP CUTTER MCH 27.8 26.5 - 10/15/2021 LABORATORY 33.0 pg 5:43 AM TIP CUTTER MCHC 32.2 31.5 - 10/15/2021 LABORATORY 36.5 g/dL 5:43 AM TIP CUTTER RDW 14.9 10.0 - 10/15/2021 LABORATORY 15.0 % 5:43 AM TIP CUTTER Platelet Count 185 150 - 450 10/15/2021 LABORATORY 10e3/uL 5:43 AM TIP CUTTER Specimen Anatomical Collection Method / Collection Time Recei shyla Time (Source) Location / Volume Laterality Blood STRUCTURE OF LEFT Venipuncture / 10/15/2021 5:30 10/15 5:40 HAND / Unknown Unknown AM TIP CUTTER AM TIP CUTTER Luis Felipe Allan PA-C LAB - BLOOD ORDERABLES Performing Organization Address City/State/ZIP Code [place] [phone] [facility] [address], Room [address]B (ABNORMAL) Basic metabolic panel (10/15/2021 5:30 AM TIP CUTTER) [facility] Method Time Signature Sodium 141 133 - 144 10/15/2021 LABORATORY mmol/L 5:58 AM TIP CUTTER Potassium 4.8 3.4 - 5.3 10/15/2021 LABORATORY mmol/L 5:58 AM TIP CUTTER Chloride 115 (H) 94 - 109 10/15/2021 LABORATORY mmol/L 5:58 AM TIP CUTTER Carbon Dioxide 23 20 - 32 10/15/2021 LABORATORY (CO2) mmol/L 5:58 AM TIP CUTTER Anion Gap 3 3 - 14 10/15/2021 LABORATORY mmol/L 5:58 AM TIP CUTTER Urea Nitrogen 45 (H) 7 - 30 10/15/2021 LABORATORY mg/dL 5:58 AM TIP CUTTER Creatinine 1.41 (H) 0.66 - 10/15/2021 LABORATORY 1.25 mg/dL 5:58 AM TIP CUTTER Calcium 8.6 8.5 - 10.1 10/15/2021 LABORATORY mg/dL 5:58 AM TIP CUTTER Glucose 64 (L) 70 - 99 10/15/2021 LABORATORY mg/dL 5:58 AM TIP CUTTER GFR Estimate 53 (L) >60 10/15/2021 LABORATORY mL/min/1.7 5:58 AM TIP CUTTER 3m2 Comment: Effective July 30, 2021 eGF Rcr in adults is calculated using the 2020 CKD-EPI creatinine equation which includ es age and gender (Prateek et al., NEJM, DOI: 10.1056/GHHVct2789391) Specimen Anatomical Collection Method / Collection Time Recei shyla Time (Source) Location / Volume Laterality Blood STRUCTURE OF LEFT Venipuncture / 10/15/2021 5:30 10/15 5:40 HAND / Unknown Unknown AM TIP CUTTER AM TIP CUTTER Luis Felipe Allan PA-C LAB - BLOOD ORDERABLES Performing Organization Address City/State/ZIP Code [place] [address] Care Lab [address] 1[address], Room [address]B EP REPORT - HIM SCAN (10/15/2021 12:00 AM TIP CUTTER) Specimen (Source) Anatomical Location Collection Method / Collectio n Time Received Time / Laterality Volume 10/15/2021 Narrative This result has an attachment that is no t available. Provider Scan CV ELECTROPHYSIOLOGY ORDERAB LES EP REPORT - HIM SCAN (10/15/2021 12:00 AM TIP CUTTER) Specimen (Source) Anatomical Location Collection Method / Collectio n Time Received Time / Laterality Volume 10/15/2021 Narrative This result has an attachment that is no t available. Provider Scan CV ELECTROPHYSIOLOGY ORDERAB LES Asymptomatic COVID-19 Virus (Coronavirus) by PCR Nasopharyngeal (10/14/2021 8:09 PM TIP CUTTER) Analysis Performed At Patho logist Time Signature SARS CoV2 PCR Negative Negative 10/14/2021 LABORATORY 9:07 PM TIP CUTTER Comment: NEGATIVE: SARS-CoV-2 (COVID-19) RNA not detected, presumed negative. Specimen Anatomical Location / Collection Method Collection Abiodun e Received Time (Source) Laterality / Volume Swab NASOPHARYNGEAL Non-blood 10/14/2021 8:09 10/14/2021 8:18 STRUCTURE / Unknown Collection / PM TIP CUTTER PM TIP CUTTER Unknown Narrative LABORATORY - 10/14/2021 9:07 PM TIP CUTTER Testing was performed using the meghna?? SARS-CoV-2 [...] exposure or clinical presentation sugges ts COVID-19. ??[facility] are certified under the Clinical Laborat ory Improvement Amendments of 1988 (CLIA-88) as qualified to perform moderate and/or high complexity laboratory testing. Luis Felipe Allan PA-C LAB - MICRO GENERAL ORDER SOCORRO Performing Organization Address City/State/ZIP Code [place] [address] [phone] Care Lab [address] 1[address], Room [address]B (ABNORMAL) Potassium (10/14/2021 7:22 PM TIP CUTTER) athologist Signature Potassium 5.5 (H) 3.4 - 5.3 10/14/2021 LABORATORY mmol/L 8:05 PM TIP CUTTER Specimen Anatomical Collection Method / Collection Time Recei shyla Time (Source) Location / Volume Laterality Blood STRUCTURE OF LEFT Venipuncture / 10/14/2021 7:22 10/14 7:35 HAND / Unknown Unknown PM TIP CUTTER PM TIP CUTTER Luis Felipe Allan PA-C LAB - BLOOD ORDERABLES Performing Organization Address City/State/ZIP Code [place] [address] Care Lab [address] 1[address], Room [address]B (ABNORMAL) Hemoglobin A1c (10/14/2021 7:19 PM TIP CUTTER) Analysis Performed At Patho logist Time Signature Hemoglobin A1C 7.4 (H) 0.0 - 5.6 10/14/2021 LABORATORY % 8:25 PM TIP CUTTER Comment: Normal <5.7% Prediabetes 5.7-6.4% ?? Diabetes 6.5% or higher Note: Adopted from ADA consensus guideli anna. Specimen Anatomical Collection Method / Collection Time Recei shyla Time (Source) Location / Volume Laterality Blood STRUCTURE OF LEFT Venipuncture / 10/14/2021 7:19 10/14 7:34 HAND / Unknown Unknown PM TIP CUTTER PM TIP CUTTER Luis Felipe Allan PA-C LAB - BLOOD ORDERABLES Performing Organization Address City/State/ZIP Code [place] [address] Care Lab [address] [...] Rate Site acetaminophen (TYLENOL) tablet 650 Given 10/16/2021 8:04 AM TIP CUTTER 650 mg mg 650 mg, Oral, EVERY 4 HOURS PRN, mild pain, fever, Starting on Thu10/15/21 at 1406, Post-procedurally for CAR electrophysiology studies. Maximum acetaminophen dose from all sources = 75 mg/kg/day not to exceed 4 grams/day. Given 10/15/2021 10:11 PM TIP CUTTER 650 mg amLODIPine (NORVASC) tablet 10 mg Given 10/15/2021 8:18 PM TIP CUTTER 10 mg 10 mg, Oral, AT BEDTIME, First dose on Thu10/14/21 at 2130 Given 10/14/2021 9:33 PM TIP CUTTER 10 mg aspirin (ASA) tablet 325 mg Given 10/16/2021 8:01 AM TIP CUTTER 325 mg 325 mg, Oral, DAILY, First dose on Thu10/15/21 at 0900 Given 10/15/2021 8:43 AM TIP CUTTER 325 mg bupivacaine (MARCAINE) 0.25% Given 10/15/2021 12:48 PM TIP CUTTER 15 mL s Chest preservative free injection ONCE PRN, Starting on Thu10/15/21 at 1248, Cardiac Intra-procedure carvedilol (COREG) tablet 12.5 mg Given 10/16/2021 10:17 AM TIP CUTTER 12.5 mg 12.5 mg, Oral, 2 TIMES DAILY WITH MEALS, First dose (after last modification) on Thu10/16/21 at 0900 ceFAZolin (ANCEF) intermittent infusion 2 g New Bag 10/15/2021 12:28 PM TIP CUTTER 2 g in 100 mL dextrose PRE-MIX Routine, CONTINUOUS PRN, Starting on Thu10/15/21 at 1228, Cardiac Intra-procedure clotrimazole (LOTRIMIN) 1 % solution Given 10/16/2021 8:05 AM TIP CUTTER Topical, 2 TIMES DAILY, First dose on Thu10/15/21 at 0100, Apply to ears/affected area Given 10/15/2021 10:13 PM TIP CUTTER Given 10/15/2021 8:43 AM TIP CUTTER dextrose 50 % injection 25-50 mL 25-50 [...] 100 mg/dL. Vesicant. fentaNYL (PF) (SUBLIMAZE) injection Given 10/15/2021 12:43 PM TIP CUTTER 50 mcg ONCE PRN, Administer over 3-5 Minutes, Starting on Thu10/15/21 at 1234, Cardiac Intra-procedure Given 10/15/2021 12:34 PM TIP CUTTER 50 mcg gabapentin (NEURONTIN) capsule 300 mg Given 10/15/2021 10:20 PM TIP CUTTER 300 mg 300 mg, Oral, 2 TIMES DAILY, First dose on Thu10/14/21 at 2300 Given 10/15/2021 8:18 PM TIP CUTTER 300 mg Given 10/15/2021 12:14 AM TIP CUTTER 300 mg glucagon injection 1 mg 1 [...] injection 10 mg Given 10/16/2021 7:59 AM TIP CUTTER 10 mg 10 mg, Intravenous, EVERY 4 HOURS PRN, high blood pressure, give for SBP > 170, Starting on Thu10/14/21 at 1906 Given 10/15/2021 8:25 PM TIP CUTTER 10 mg hydrALAZINE (APRESOLINE) tablet 25 mg Given 10/16/2021 8:01 AM TIP CUTTER 25 mg 25 mg, Oral, 3 TIMES DAILY, First dose on Thu10/14/21 at 2200 Given 10/15/2021 10:12 PM TIP CUTTER 25 mg Given 10/15/2021 4:00 PM TIP CUTTER 25 mg hydrALAZINE (APRESOLINE) tablet 50 mg Given 10/16/2021 8:01 AM TIP CUTTER 50 mg 50 mg, Oral, 3 TIMES DAILY, First dose on Thu10/14/21 at 2200 Given 10/15/2021 10:11 PM TIP CUTTER 50 mg Given 10/15/2021 4:00 PM TIP CUTTER 50 mg insulin basal rate from AMBULATORY PUMP Insulin type in pump reservoir: insulin lispro (HumaLOG), Basal Rates and Start/End times: 0000 - 0500 : 1.1 units/hour, ?? 0500 - 0000: 1 .4 units/hour insulin bolus from AMBULATORY PUMP Given 10/16/2021 12:50 PM TIP CUTTER Insulin type in pump reservoir: insulin lispro (HumaLOG), Bolus-Correction: 0000 - 0500: 1 unit(s) to lower blood glucose by 35 mg/dL 0500 - 2130: 1 unit(s) to lower blood glucose by 25 mg/dL 2130 - 0000: 1 unit(s) to lower blood glucose by 35 mg/dL Given 10/16/2021 10:18 AM TIP CUTTER Given 10/15/2021 8:45 AM TIP CUTTER insulin bolus from AMBULATORY PUMP Given 10/16/2021 10:18 AM TIP CUTTER Insulin type in pump reservoir: insulin lispro [...] tablet 60 Given 0 10/15/2021 4:01 PM TIP CUTTER 60 mg mg 60 mg, Oral, DAILY, First dose on Thu10/14/21 at 2200, DO NOT CRUSH. Can split tablet in half along score alden. Given 10/14/2021 10:34 PM TIP CUTTER 60 mg lidocaine 1 % Given 10/15/2021 12:55 PM TIP CUTTER 5 mLs Ches t ONCE PRN, Starting on Thu10/15/21 at 1249, Cardiac Intra-procedure Given 10/15/2021 12:49 PM TIP CUTTER 15 mLs Ches t lisinopril (ZESTRIL) tablet 10 mg Given 10/15/2021 10:11 PM TIP CUTTER 10 mg 10 mg, Oral, AT BEDTIME, First dose on Thu10/14/21 at 2200 Given 10/14/2021 9:33 PM TIP CUTTER 10 mg melatonin tablet 3 mg Given 10/15/2021 10:20 PM TIP CUTTER 3 mg 3 mg, Oral, AT BEDTIME PRN, sleep, Starting on Thu10/15/21 at 0136 Given 10/15/2021 1:48 AM TIP CUTTER 3 mg midazolam (VERSED) injection Given 10/15/2021 12:44 PM TIP CUTTER 1 mg Administer over 2 Minutes, ONCE PRN, Starting on Thu10/15/21 at 1234, Cardiac Intra-procedure Given 10/15/2021 12:34 PM TIP CUTTER 1 mg naloxone (NARCAN) injection 0.2 mg 0.2 [...] tablet 40 mg Given 10/15/2021 8:18 PM TIP CUTTER 40 mg 40 mg, Oral, EVERY EVENING, First dose on Thu10/14/21 at 2000 Given 10/14/2021 10:34 PM TIP CUTTER 40 mg senna-docusate (SENOKOT-S/PERICOLACE) 8. 6-50 MG [...] tablet 50 mg Given 10/15/2021 10:11 PM TIP CUTTER 50 mg 50 mg, Oral, AT BEDTIME, First dose on Thu10/14/21 at 2300 Given 10/14/2021 10:34 PM TIP CUTTER 50 mg sodium chloride (PF) 0.9% PF flush 3 mL Given 10/16/2021 5:39 AM TIP CUTTER 3 mLs 3 mL, Intracatheter, EVERY 8 HOURS, First dose on Thu10/14/21 at 1930, to lock peripheral IV dormant line Given 10/15/2021 8:25 PM TIP CUTTER 3 mLs Given 10/15/2021 12:20 AM TIP CUTTER 3 mLs documented in this encounter Active and Recently Administered Medications Times are shown in TIP CUTTER. Scheduled Medication Order 10/14/2021 10/15/2021 10/16/2021 amLODIPine (NORVASC) tablet 10 mg 213 (Given - Provider: Nessa Guerra, LETICIA) 2017 [...] 12.5 mg 1017 (Given - Provider: Nydia Canseco RN) 12.5 mg, Oral, 2 TIMES DAILY WITH MEALS, First dose (after last modification) on Thu10/16/21 at 0900 cloNIDine (CATAPRES) tablet 0.1 mg (CANCELED) 1251 (Given - Provider: Nydia Casneco RN) 0.1 mg, Oral, 2 TIMES DAILY, First [...] Chloe Diaz RN)2018 (Given - Provider: Elvira Velázquez, LETICIA)222 (Given - Provider: Elvira Velázquez RN) 300 mg, Oral, 2 TIMES DAILY, First dose on Thu10/14/21 at 2300 hydrALAZINE (APRESOLINE) tablet 25 mg 2133 (Given - Pr ovider: Alethea Guerra RN) 0843 (Given - Provider: Nydia Canseco RN)1600 (Given - Provider: Elvira Velázquez RN)221 (Given - Provider: Elvira Velázquez RN) 0801 (Given - Provider: Nydia Canseco RN)1600 (Canceled Entry - Provider: Orders Generic Provider - Comment: Automatically canceled at discontinue of medication order) 25 mg, Oral, 3 TIMES DAILY, First dose on Thu10/14/21 at 2200 hydrALAZINE (APRESOLINE) tablet 50 mg 2132 (Given - Pr ovider: Alethea Guerra RN) 0844 (Given - Provider: Nydia Canseco RN)1600 (Given - Provider: Elvira Velázquez RN)221 (Given - Provider: Elvira Velázquez RN) 0801 [...] - Comment: [phone] (Not Given - Provider: yNdia Canseco RN - Reason: NPO) 1018 (Given [...] 60 mg 2233 (Given - Provider: Alethea Guerra, LETICIA) 1601 (Given - Provider: Elvira Velázquez RN) 1630 (Canc eled Entry - Provider: Orders Generic Provider - Comment: Automatically canceled at discontinue of medication order) 60 mg, Oral, DAILY, First dose on 02/28 at 2200, DO NOT CRUSH. Can split tablet in half along score alden. lisinopril (ZESTRIL) tablet 10 mg 2132 (Given - Provider: Nessa Guerra, LETICIA) 2210 (Given - Provider: Elvira Velázquez RN) 10 mg, Oral, AT BEDTIME, First dose on Thu10/14/21 at 2200 rosuvastatin (CRESTOR) tablet 40 mg 2233 (Given - Prov ider: Alethea Guerra RN) 2017 (Given - Provider: Elvira Velázquez RN) 40 mg, Oral, EVERY EVENING, First dose on Thu10/14/21 at 2000 sertraline (ZOLOFT) tablet 50 mg 2233 (Given - Provider: Lucretia Guerra, LETICIA) 2210 (Given - Provider: Elvira Velázquez RN) [...] Velázquez RN) 0539 (Given - Provider: Navi Roe RN)1250 (Not Given - Provider: Nydia Canseco RN - Reason: Other) 3 mL, Intracatheter, EVERY 8 HOURS, Firs t dose on Thu10/14/21 at 1930, to lock peripheral IV dormant line sodium chloride (PF) 0.9% PF flush 3 mL (CANCELED) 223 4 (Given - Provider: Alethea Guerra RN) 0401 (Given - Provider: Navi bear [...] (CANCELED) 0842 (New Bag - Provider: Nydia Canseco, RN) at 150 mL/hr, Intravenous, CONTINUOUS, 1 50 mL/hr IV for 2 hours prior to cardiac candlemaking laborer procedure, then decrease to 75 mL/hr [...] Chloe Diaz RN)0355 (Given - Provider: Navi Roe RN)1706 (Given - Provider: Elvira Velázquez RN) 650 mg, Oral, EVERY 4 HOURS PRN, mild pa in, Starting on Thu10/14/21 at 1901, Maximum acetaminophen dose from all sources = 75 mg/kg/day not to exceed 4 grams/day. acetaminophen (TYLENOL) tablet 650 mg 22 11 (Given - Provider: Elvira Velázquez RN) 0804 (Given - Provider: Nydia Canseco, LETICIA) 650 mg, Oral, EVERY 4 HOURS PRN, [...] PRN, low blo od sugar, Starting on 10/14/21 at 1906, Give first dose for initial [...] 2024 (Given - Provider: Elvira Velázquez RN) 758 (Given - Provider: Nydia Canseco RN) 10 mg, Intravenous, EVERY 4 HOURS PRN, h igh blood pressure, give for SBP > 170, Starting on Thu10/14/21 at 1906 HYDROmorphone (PF) (DILAUDID) injection 0.2 mg 0.2 mg, Intravenous, EVERY 2 HOURS PRN, severe pain, IF unable to take PO. Hold while on DEICER REPAIRER ELECTRIC., Starting on Thu10/14/21 at 1904 lidocaine (LMX4) [...] mg 0148 (Given - Prov ider: Chloe Diaz RN)2220 (Given - Provider: Elvira Velázquez RN) [...] or analgesic side effects. Hold while on DEICER REPAIRER ELECTRIC or with regular IV opioid dosing. oxyCODONE-acetaminophen [...] after each naloxone dose. Consider transfer to IC U if patient respiratory parameters have not [...] stools.
documented in this encounter Care Teams Chocolate Finisher Operator Relationship Specialty Start Date End Date Anatoliy Jackson, PCP - General 05/14/12 Heath More PCP - Internal Medicine INTERNAL MEDICINE - 01/06/14 MD Andreas ENDOCRINOLOGY, DIABETES [facility] METABOLISM [facility] [address] [place] [phone] Peter Gipson PCP - Urology 04/02/15 MD Jordan [facility] [address] [place] [address] [address] [place] [address] Peter Mcmullen Assigned Musculoskeletal 06/01/20 MD Mahendra Provider [facility] [place][note 2][address] [facility] [address] [place] [address] Giuliana Gomez Assigned Heart and 06/30/21 A, STADIUM MANAGER BALANCE SCREWHEAD POLISHER Vascular Provider [address] [place] [id number] Giuliana Gomez Nurse Practitioner Cardiovascular Disease 2 A, STADIUM MANAGER BALANCE SCREWHEAD POLISHER [address] [place] [address] Fidencio Solis MD MD Cardiovascular Disease 08/21/21 [address] [place] [id number] documented as of this encounter
--- OUTSIDE RECORDS SUMMARY | 2022-05-02 12:23 | XMS_ITS | Encounter Summary ---
:1950 Author Organization [facility] Address [address] [facility] [place] [address] Care Team Providers Name Role Phone Anatoliy Jackson MD Primary Care Provider Heath More MD Unavailable Peter Gipson MD Unavailable Peter Mcmullen MD Unavailable Giuliana Gomez APRN AFTER SCHOOL CAREGIVER Unavailable [phone] Giuliana Gomez APRN AFTER SCHOOL CAREGIVER Unavailable Fidencio Solis MD Unavailable Encounter Details Date Type Department Care Team Description 10/10/2021 Travel Social History Tobacco Use Types Packs/Day [...] been in contact with No / Unsure 10/10/2021 9:44 AM COLUMNIST/COMMENTATOR someone who was confirmed or 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 documented as of this encounter Plan of Treatment Upcoming Encounters Date Type Specialty Care Team Description 05/15/2022 Hospital Encounter Surgery Singh Torres MD [facility] [address] [place] [address] (Wo rk) 05/15/2022 Surgery Surgery Neo Torres MD BLEPHAROPLASTY BILATERAL [facility] PTOSIS REPAIR BILATERAL [address] [place] [id number] (Wo rk) 06/25/2022 Ancillary Procedure Cardiology Kirk Silver MD [address] [place] [address] [...] on filedocumented in this encounter Care Teams Stencil Maker Relationship Specialty Start Date End Date Anatoliy Jackson, PCP - General 05/14/12 Heath More PCP - Internal Medicine INTERNAL MEDICINE - 01/06/14 MD Andreas ENDOCRINOLOGY, DIABETES [facility] & METABOLISM [facility] [address] [place] [phone] Peter Gipson PCP - Urology 04/02/15 MD Jordan [facility] UROLOG[facility] [address] [place] [address] Peter Mcmullen Assigned Musculoskeletal 06/01/20 MD Mahendra Provider [address] [place], [place] [phone] Giuliana Gomez Assigned Heart and 06/30/21 A, GEAR HOBBER SET UP OPERATOR AFTER SCHOOL CAREGIVER Vascular Provider [address] [place] [id number] Giuliana Gomez Nurse Practitioner Cardiovascular Disease 2 A, GEAR HOBBER SET UP OPERATOR AFTER SCHOOL CAREGIVER [address] [place] [id number] Fidencio Solis MD MD Cardiovascular Disease 08/21/21 [address], [address] [place] [id number] documented as of this encounter
--- OUTSIDE RECORDS SUMMARY | 2022-05-02 12:23 | XMS_ITS | Encounter Summary ---
:1950 Author Organization [facility] Address [address] [place] [address] Care Team Providers Name Role Phone Anatoliy Jackson MD Primary Care Provider Heath More MD Unavailable Peter Gipson MD Unavailable Peter Mcmullen MD Unavailable Ailny Julien APRN ANESTHESIOLOGY MEDICAL DOCTOR Unavailable [phone] Ailyn Julien APRN ANESTHESIOLOGY MEDICAL DOCTOR Unavailable [phone] Fidencio Solis MD Unavailable Reason for Referral Consultation (Routine: Next available opening) - Pending Review Specialty Diagnoses / Procedures Referred By Contact Refer red To Contact Cardiovascular Disease Diagnoses S/P CABG (coronary artery bypass graft) Essential hypertension Fidencio Solis MD [address] [place] [address] Referral ID Status Reason Start Date Expiration Date Visits V isits Requested Authorized [id number] Pending 10/10/2021 10/10/2022 1 1 Review onsultation (Routine: Next available opening) - Pending Review Specialty Diagnoses / Procedures Referred By Contact Refer red To Contact Cardiovascular Disease Diagnoses Essential hypertension Fidencio Solis MD [address] [place] [address] Referral ID Status Reason Start Date Expiration Date Visits V isits Requested Authorized [id number] Pending 10/10/2021 10/10/2022 1 1 Review MA CENTER NURSE Reason for Visit Reason Comments Follow Up CAD, HTN Consultation (Routine) - Pending Review Specialty Diagnoses / Procedures Referred By Contact Refer red To Contact Diagnoses S/P CABG (coronary artery bypass graft) Fidencio Solis MD [address] [place] [address] Referral ID Status Reason Start Date Expiration Date Visits V isits Requested Authorized [id number] Pending 06/12/2021 06/12/2022 1 1 Review Encounter Details Date Type Department Care Team Description 10/10/2021 Office Visit [facility] Fidencio Solis MD Essential hypertension (Primary Dx); [facility] [address] S/P CABG (coronary artery bypass graft) [facility] [address] [address] [place], [place] [address] [address] [place], [place] (Work) [phone] Social History Tobacco Use Types Packs/Day Years [...] with No / Unsure 10/10/2021 9:44 AM PLASMA CENTER NURSE someone who was confirmed or 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 documented as of this encounter Last Filed Vital Signs Vital Sign Reading Time Taken Comments Blood Pressure 130/56 10/10/2021 9:45 AM PLASMA CENTER NURSE Pulse 59 10/10/2021 9:45 AM PLASMA CENTER NURSE Temperature - - Respiratory Rate - - Oxygen Saturation 98% 10/10/2021 9:45 AM PLASMA CENTER NURSE Inhaled Oxygen Concentration - - Weight 101.1 kg (222 lb 14.4 oz) 10/10/2021 9:45 AM PLASMA CENTER NURSE Height 180.3 cm (5' 11) 10/10/2021 9:45 AM PLASMA CENTER NURSE Body Mass Index 31.09 10/10/2021 9:45 AM PLASMA CENTER NURSE documented in this encounter Patient Instructions Patient InstructionsFidencio Solis MD - 10/10/2021 9:45 AM CST Images from the original note were not included. October 10, 2021 Thank you for allowing our Cardiology team to participate in your care. Please note the following changes to your heart treatment plan: Medication changes: - change imdur 60mg daily to isordil 30mg three times daily - increase clonidine 0.1mg twice daily to 0.2mg twice daily Tests to be done: - none Follow up: - Follow up with [facility] (we will work on a referral) Please contact our team at [phone] or [phone] for any questions or concerns. For scheduling, please call [phone]. If you are having a medical emergency, please call [phone]. Sincerely, Fidencio Solis MD, FACC Cardiology [facility] - [facility] - [facility] - Rad MA CENTER NURSE documented in this encounter Progress Notes Fidencio Solis MD - 10/10/2021 9:45 AM CST Images from the original note were not included. Cardiology Clinic Progress Note: October 10, 2021 Patient Name: Nikita Anderson Patient Consult indication: CAD, post CABG HPI: I had the opportunity to see patient Nikita Anderson in cardiology clinic for a follow up visit. Patient is followed by our colleague Anatoliy Jackson MD with Primary Care. As you know, Mr. Anderson is a 70-year-old male with a past medical history significant for anxiety, CARLITOS, hypertension, hyperlipidemia, diabetes, chronic kidney disease, coronary artery disease status post PCI and CABG (DOUGLASS to LAD, rSVG to PDA, rSVG to OM2), post CABG pleural effusions, ischemic cardiomyopathy, who presents for follow-up. Patient has an extensive prior cardiac history. [...] been planning to go to[place] trip to [place] shortly thereafter. ??As his symptoms were stable, [...] stress test (preop), and demonstrated widely patent stents. ? When I had seen him in clinic 12/14/2020, he had been experiencing worsening dyspnea on exertion, and so he was evaluated with a nuclear stress test that was abnormal. Subsequent coronary angiogram 03/13/2021 demonstrated obstructive disease in the LAD and RCA, also with a SENIOR ELECTRICAL PROJECT MANAGER of OM 2. Patient underwent bypass surgery with Dr. Gardner on 04/19/2021, DOUGLASS to LAD, reverse SVG to PDA, reverse SVG to OM 2. ?? Following this, unfortunately 04/28/2021 he was admitted with weakness and falls, and with GENO. He was also found to be borderline at bradycardic, and so carvedilol was discontinued. He was found to have a pleural effusion for which he underwent thoracentesis 04/29/2021. Furosemide and lisinopril were also discontinued. Subsequently he has been seen by my colleague Fadi Julien NP. A Holter monitor was done 05/07 to 05/09/2021 that demonstrated 2 short episodes of atrial tachycardia vs atrial fibrillation, one episode lasting 23 seconds, and another lasting 39 seconds. For follow-up, cardiac event monitor was placed for 30 days, this revealed no atrial fibrillation, however did show one 7 beat run ofnonsustained VT at 197 bpm. He did require repeat thoracentesis 05/14/2021 with removal of 1.3 L of fluid. TTE 06/06/2021 demonstrates LVEF 46% with severe inferior/inferoseptal hypokinesis, moderately reduced RV function, pleural effusion, trivial pericardial effusion. I reviewed his intraoperative KARIE andthere was a trivial pericardial effusion present on the study as well. I had last seen him in clinic [...] territory and would not explain echocardiographic findings. [place] vesselCAD was otherwise unchanged from pre- CABG coronary angiogram 03/2021. Since patient was asymptomatic of angina, this has been managed medically. Since then, patient has had challenging to control blood pressures. He has been monitoring his bloodpressures almost 24 hours a day, several readings each hour, and brings with him a log of average values for each hour. Blood pressures increase over the course of the day, and are highest in the evening, generally blood pressures seem to be in the 150 to 170 mmHg range systolic. He reports that he has been evaluated by endocrinology, and tests for Conn syndrome have been negative (patient has a family history of Conn syndrome). Renal artery Doppler ultrasounds 04/2021 negative for renal artery stenosis. Patient does have sleep apnea, and has been using his CPAP every night. Of note, patient's , who accompanies patient today, remarks the patient has some degree of anxiety, and has been watching cable news quite extensively, especially with the [place] crisis. Politics seems to be a trigger for emotional stress. Fortunately, he denies any chest pain, chest pressure, dizziness/lightheadedness. Assessment and Plan/Recommendations: # Mild ischemic CM, TTE 06/06/2021 LVEF 46%, down from TTE 01/02/21 LVEF 55-60%. Denies symptoms concerning for angina, however did have 7 beat run of NSVT noted on cardiac event monitor. Coronary angiography/bypass angiography 07/03/2021 that demonstrated DOUGLASS to LAD and SVG to RPDA widely patent, SVGto OM stump occluded, however this was thought to feed a relatively small myocardial territory and would not explain echocardiographic findings. [place] De[place] vessel CAD was otherwise unchanged from pre-CABG coronary angiogram 03/2021. Since patient was asymptomatic of angina, this has been managed medically. # CAD with recent CABG 04/19/2021, DOUGLASS to LAD, reverse SVG to PDA, reverse SVG to OM 2 (occluded). # Post CABG atrial tachycardia vs atrial fibrillation on Holter monitor 05/07/21 (23s, 39s), no recurrence seen on subsequent 30d event monitor # HTN, challenging to control. # CARLITOS, recently dx, on CPAP # Anxiety # HL # DM # CKD # Trivial pericardial effusion -Discussed techniques for stress reduction, avoidance of known emotional triggers as able, patient inquires about adjustment to his antianxiety medication, advised that he follow-up with PCP -Will increase clonidine 0.1 mg twice daily to 0.2 mg twice daily -Will change Imdur 60 mg daily to Isordil 30 mg 3 times daily -Continue hydralazine 75 mg 3 times daily -Continue amlodipine, carvedilol, lisinopril, aspirin, rosuvastatin -Advised to monitor blood pressures at home, though less frequently, rather than every hour, change to 3 times a day, and to monitor for hypotension given the aforementioned changes to his antihypertensive regimen -Patient inquires about referral to [facility] for further evaluation/management of hypertension and cardiac cares, will send referral and all appropriate records -Thank you for allowing our team to participate in the care of Nikita Anderson. Please do not hesitate to call or page me with any questions or concerns. Sincerely, Fidencio Solis MD, [facility] Cardiology Text Page October 10, 2021 Voice recognition software utilized. Total time spent on this encounter: 60 minutes, providing care in this encounter including, but not limited to, reviewing prior medical records, laboratory data, imaging studies, diagnostic studies, procedure notes, formulating an assessment and plan, recommendations, discussion and counseling with patient face to face, dictation. Past Medical History: Past Medical History: Diagnosis Date ??? Angina [...] Coronary Graft; Surgeon: Mahendra Vega MD; Location: [facility] CARDIAC SPEED READING TEACHER ??? CV CORONARY ANGIOGRAM N/A 03/13/2021 Procedure: Coronary Angiogram; Surgeon: Darwin Valero MD; Location: [facility] CARDIAC SPEED READING TEACHER ??? CV HEART CATHETERIZATION WITH POSSIBLE INTERVENTION N/A 07/03/2021 Procedure: Coronary Angiogram; Surgeon: Mahendra Vega MD; Location: [facility] CARDIAC CATHLAB ??? CV INSTANTANEOUS WAVE-FREE RATIO N/A 03/13/2021 Procedure: Instantaneous Wave-Free Ratio; Surgeon: Darwin Valero MD; Location: [facility] CARDIAC SPEED READING TEACHER ??? CV LEFT HEART CATH N/A 07/03/2021 Procedure: Left Heart Cath; Surgeon: Mahendra Vega MD; Location: HEART CARDIAC SPEED READING TEACHER ??? CV LEFT VENTRICULOGRAM N/A 07/03/2021 Procedure: Left Ventriculogram; Surgeon: Mahendra Vega MD; Location: HEART CARDIAC SPEED READING TEACHER ??? HC LEFT HEART CATHETERIZATION 04/01/2016 mild LAD (30%), 50-60% rPDA ? ? HEAD & NECK SURGERY wisdom teeth extractions, subacious cyst removed ??? HEART CATH CORONARY ANGIOGRAM W/LV GRAM 01/03/15 70% prox PDA - FFR 0.77, 70% OM2 - FFR 0.79, 70-80% OM3 -FFR 0.77, 70-80% OM4, Medications (outpatient): Current Outpatient Medications Medication Sig Dispense Refill ??? acetaminophen (TYLENOL) 325 MG tablet Take 2 tablets (650 mg) by mouth every 4 hours as needed for mild pain (Patient taking differently: Take 650 mg by mouth At Bedtime ) 40 tablet 0 ??? amLODIPine (NORVASC) 10 MG tablet Take 10 mg by mouth At Bedtime ??? aspirin (ASA) 325 MG tablet Take 325 mg by mouth daily ??? carvedilol (COREG) 6.25 MG tablet Take 1 tablet (6.25 mg) by mouth 2 times daily (with meals) Amand 8pm 180 tablet 1 ??? cloNIDine (CATAPRES) 0.1 MG tablet Take 1 tablet (0.1 mg) by mouth 2 times daily 180 tablet 0 ??? Continuous Blood Gluc Sensor (DEXCOM G6 [...] 300 mg by mouth 8:30PM and at bedtime) ??? glucagon 1 MG kit 1 mg once as needed for low blood sugar ??? HEMP OIL OR EXTRACT OR OTHER CBD CANNABINOID, NOT MEDICAL CANNABIS, Apply 1 Application topically 2 times daily as needed (Arthritis on right knee and wrist) Topical cream ??? hydrALAZINE (APRESOLINE) 50 MG tablet Take 1.5 tablets (75 mg) by mouth 3 times daily May take additional 1/2 tab (25 mg) as needed BP > 170 mmHg 405 tablet 0 ??? insulin lispro (HUMALOG) 100 UNIT/ML vial 1 [...] greater than 350 - give 10 units. ??? isosorbide mononitrate (IMDUR) 60 MG 24 hr tablet Take 1 tablet (60 mg) by mouth daily 4:30 pm 90 tablet 1 ??? lisinopril (ZESTRIL) 10 MG tablet Take [...] Take 1 capsule by mouth every morning Allergies: Allergies Allergen Reactions ??? Atorvastatin Other (See Comments) Congestion ??? Epinephrine Palpitations Social History: History Drug Use No History Smoking Status ??? Former Smoker ??? Years: 2.00 ??? Types: Cigarettes ??? Quit date: 04/19/1972 Smokeless Tobacco ??? Never Used Social History Substance and Sexual Activity Alcohol use: Yes Comment: 4-5 drinks week Family History: Family History Problem Relation Age of Onset ??? Hypertension Mother ??? Diabetes Maternal Grandmother ??? Hypertension Maternal Grandmother ??? Hypertension Maternal Grandfather Review of Systems: A complete review of systems was negative except as mentioned in the History of Present Illness. Objective & Physical Exam: BP 130/56 (BP Location: Right arm, Patient Position: Sitting, Cuff Size: Adult Regular) Pulse 59 Ht 1.803 m (5' 11) Wt 101.1 kg (222 lb 14.4 oz) SpO2 98% BMI 31.09 kg/m?? Wt Readings from Last 2 Encounters: 10/10/21 101.1 kg (222 lb 14.4 oz) 09/10/21 100 kg (220 lb 6.4 oz) Body mass index is 31.09 kg/m??. Body surface area is 2.25 meters squared. Constitutional: appears stated age, in no apparent distress, appears to be well nourished Head: normocephalic, atraumatic Neck: supple, trachea midline, no bruit bilaterally Pulmonary: clear to auscultation bilaterally, no wheezes, no rales, no increased work of breathing Cardiovascular: JVP normal, regular rate, regular rhythm, normal S1 and S2, no S3, S4, no murmur appreciated, no lower extremity edema Gastrointestinal: no guarding, non-rigid Neurologic: awake, alert, moves all extremities Skin: no jaundice, warm on limited exam Psychiatric: affect is normal, answers questions appropriately, oriented to self and place Data reviewed: Lab Results Component Value Date WBC 6.4 07/03/2021 WBC 8.8 01/02/2021 RBC 4.07 (L) 07/03/2021 RBC 3.93 (L) 01/02/2021 HGB 11.2 (L) 07/03/2021 HGB 11.3 (L) 01/02/2021 HCT 35.2 (L) 07/03/2021 HCT 34.5 (L) 01/02/2021 MCV 87 07/03/2021 MCV 88 01/02/2021 MCH 27.5 07/03/2021 MCH 28.8 01/02/2021 MCHC 31.8 07/03/2021 MCHC 32.8 01/02/2021 RDW 13.3 07/03/2021 RDW 12.9 01/02/2021 PLT 190 07/03/2021 PLT 202 01/02/2021 Sodium Date Value Ref Range Status 09/10/2021 142 133 - 144 mmol/L Final 01/02/2021 142 133 - 144 mmol/L Final Potassium Date Value Ref Range Status 09/10/2021 5.1 3.4 - 5.3 mmol/L Final 01/02/2021 4.8 3.4 - 5.3 mmol/L Final Chloride Date Value Ref Range Status 09/10/2021 114 (H) 94 - 109 mmol/L Final 01/02/2021 112 (H) 94 - 109 mmol/L Final Carbon Dioxide Date Value Ref Range Status 01/02/2021 26 20 - 32 mmol/L Final Carbon Dioxide (CO2) Date Value Ref Range Status 09/10/2021 26 20 - 32 mmol/L Final Anion Gap Date Value Ref Range Status 09/10/2021 2 (L) 3 - 14 mmol/L Final 01/02/2021 4 3 - 14 mmol/L Final Glucose Date Value Ref Range Status 09/10/2021 85 70 - 99 mg/dL Final 01/02/2021 115 (H) 70 - 99 mg/dL Final Urea Nitrogen Date Value Ref Range Status 09/10/2021 49 (H) 7 - 30 mg/dL Final 01/02/2021 40 (H) 7 - 30 mg/dL Final Creatinine Date Value Ref Range Status 09/10/2021 1.27 (H) 0.66 - 1.25 mg/dL Final 01/02/2021 1.56 (H) 0.66 - 1.25 mg/dL Final GFR Estimate Date Value Ref Range Status 09/10/2021 60 (L) >60 mL/min/1.73m2 Final Comment: Effective July 30, 2021 eGFRcr in adults is calculated using the 2020 CKD- EPI creatinine equation which includes age and gender (Prateek et al., NEJM, DOI: 10.1056/PHWYjw7515654) 01/02/2021 44 (L) >60 mL/min/[1.73_m2] Final Comment: Non GFR Calc Starting 07/27/2018, serum creatinine based estimated GFR (eGFR) will be calculated using the Chronic Kidney Disease Epidemiology Collaboration (CKD-EPI) equation. Calcium Date Value Ref Range Status 09/10/2021 8.9 8.5 - 10.1 mg/dL Final 01/02/2021 8.6 8.5 - 10.1 mg/dL Final Bilirubin Total Date Value Ref Range Status 04/29/2021 0.5 0.2 - 1.3 mg/dL Final 01/02/2021 0.3 0.2 - 1.3 mg/dL Final Alkaline Phosphatase Date Value Ref Range Status 04/29/2021 60 40 - 150 U/L Final 01/02/2021 53 40 - 150 U/L Final ALT Date Value Ref Range Status 06/06/2021 22 0 - 70 U/L Final 01/02/2021 23 0 - 70 U/L Final AST Date Value Ref Range Status 04/29/2021 22 0 - 45 U/L Final 01/02/2021 16 0 - 45 U/L Final Recent Labs Lab Test 06/06/21 0802 12/21/20 [...] 04/22/2005 A1C 10.7 09/25/2004 A1C 10.7 03/27/2004 Recent Results (from the past 4320 hour(s)) Echocardiogram Limited Result Value Biplane LVEF 46% Narrative [id number]^ANAYA^AILYN^[facility] Echocardiography Laboratory [address] [place] [address] Name: NIKITA ANDERSON : 1950 Study Date: 06/06/2021 07:32 AM Age: 70 yrs Gender: Male Patient Location: [facility] Reason For Study: Coronary artery disease involving [...] approved by: Miko Ho 06/06/2021 09:40 AM MA CENTER NURSE documented in this encounter Plan of Treatment Upcoming Encounters Date Type Specialty Care Team Description 05/15/2022 Hospital Encounter Surgery Singh Torres MD [facility] [address] [place] [address] (Wo rk) 05/15/2022 Surgery Surgery Neo Torres MD BLEPHAROPLASTY BILATERAL [facility] UPPER L IDS, INTERNAL & SURGEONS PA PTOSIS REPAIR BILATERAL [address] [place] [address] (Wo rk) 06/25/2022 Ancillary Procedure Cardiology Kirk Silver MD [address] [place] [address] (Wo rk) Scheduled Procedures Name Priority Associated Diagnoses Date/Time REPAIR, PTOSIS, BILATERAL, Dermatochalas is 05/15/2022 7:30 AM CDT WITH BILATERAL BLEPHAROPLASTY 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 REPAIR, ECTROPION, EYE, Dermatochalasis 05/15/2022 7:30 AM CDT BILATERAL 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 Scheduled Referrals Name Type Priority Associated Diagnoses Order S chedule Follow-Up with Referral Routine: Next Essential Expected: Cardiology SERAFIN available opening hypertension 01/11/20 22 (Approximate), Expires: 10/10/2022 Follow-Up with Referral Routine: Next S/P CABG (coronary Expect ed: Cardiology available opening artery bypass graft) 10/10/2022 Essential (Approximate), hypertension Expires: 10/10/2022 documented as of this encounter Visit Diagnoses Diagnosis Essential hypertension - Primary Unspecified essential hypertension S/P CABG (coronary artery bypass graft) 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 documented in this encounter Care Teams Offal Icer Poultry Relationship Specialty Start Date End Date Anatoliy Jackson PCP - General 05/14/12 Heath More PCP - Internal Medicine INTERNAL MEDICINE - 01/06/14 MD Andreas ENDOCRINOLOGY, DIABETES [facility]ISM [facility] [address] [place] [phone] Peter Gipson PCP - Urology 04/02/15 MD Jordan [facility] UROLOGY [address] [place] [address] [address] [place] [address] Peter Mcmullen Assigned Musculoskeletal 06/01/20 MD Mahendra Provider [address] [place], [place] [address] Ailyn Julien Assigned Heart and 06/30/21 CALLIE Hernandez ANESTHESIOLOGY MEDICAL DOCTOR Vascular Provider [address] [place] [id number] Ailyn Julien Nurse Practitioner Cardiovascular Disease 2 A, TELLER MANAGER ANESTHESIOLOGY MEDICAL DOCTOR [address] [place] [id number] Fidencio Solis MD MD Cardiovascular Disease 08/21/21 [address] [facility] [address] [place] [id number] documented as of this encounter
--- OUTSIDE RECORDS SUMMARY | 2022-05-02 12:23 | XMS_ITS | Encounter Summary ---
:1950 Author Organization [place] Address [address] [facility] [place] [address] Care Team Providers Name Role Phone Anatoliy Jackson MD Primary Care Provider Heath More MD Unavailable Peter Gipson MD Unavailable Peter Mcmullen MD Unavailable Giuliana Gomez APRN MAINTENANCE REPAIRMAN Unavailable [phone] Giuliana Gomez APRN MAINTENANCE REPAIRMAN Unavailable Fidencio Solis MD Unavailable Encounter Details Date Type Department Care Team Description 09/10/2021 Travel Social History Tobacco Use Types Packs/Day [...] been in contact with No / Unsure 09/10/2021 1:43 PM MARKER HAND someone who was confirmed or 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 documented as of this encounter Plan of Treatment Upcoming Encounters Date Type Specialty Care Team Description 05/15/2022 Hospital Encounter Surgery Singh Torres MD [facility] [address] [place] [id number] (Wo rk) 05/15/2022 Surgery Surgery Neo Torres MD BLEPHAROPLASTY BILATERAL [facility]S, INTERNAL & [facility] PTOSIS REPAIR BILATERAL [address] [place] [phone] (Wo rk) 06/25/2022 Ancillary Procedure Cardiology Kirk Silver MD [address] [place] [address] [...] on filedocumented in this encounter Care Teams Furniture Mover Driver Relationship Specialty Start Date End Date Anatoliy Jackson, PCP - General 05/14/12 Heath More PCP - Internal Medicine INTERNAL MEDICINE - 01/06/14 MD Andreas ENDOCRINOLOGY, DIABETES ENDOCRINE CLINIC & METABOLISM [facility] [address] [place] [phone] Peter Gipson PCP - Urology 04/02/15 MD Jordan [facility] UR[facility]Y [address] [place] [id number] Peter Mcmullen Assigned Musculoskeletal 06/01/20 MD Mahendra Provider [address] [id number] Giuliana Gomez Assigned Heart and 06/30/21 A, DRYING MACHINE RECEIVER MAINTENANCE REPAIRMAN Vascular Provider [address] [place] [address] Giuliana Gomez Nurse Practitioner Cardiovascular Disease 2 A, DRYING MACHINE RECEIVER MAINTENANCE REPAIRMAN [address] [place] [id number] Fidencio Solis MD MD Cardiovascular Disease 08/21/21 [address], [address] [place] [address] documented as of this encounter
--- OUTSIDE RECORDS SUMMARY | 2022-05-02 12:23 | XMS_ITS | Encounter Summary ---
:1950 Author Organization [place] Address [address] [facility] [place] [address] Care Team Providers Name Role Phone Anatoliy Jackson MD Primary Care Provider Heath More MD Unavailable Peter Gipson MD Unavailable Peter Mcmullen MD Unavailable Giuliana Gomez APRN ALMOND BLANCHER OPERATOR Unavailable [phone] Giuliana Gomez APRN ALMOND BLANCHER OPERATOR Unavailable [phone] Fidencio Solis MD Unavailable Reason for Visit Reason Comments CORE clarifying hydralazone Rx Encounter Details Date Type Department Care Team Description 09/16/2021 Care Coordination [facility] [place] Elizabeth Wen RN hydralazon e Rx) [facility] [address] [facility] [address] [place] [address] Social History Tobacco Use Types [...] with No / Unsure 09/10/2021 1:43 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 documented as of this encounter Progress Notes Elizabeth Fernandez RN - 09/16/2021 10:35 AM CST Images from the original note were not included. [facility] Received VM on CORE RN line from Nikita who reports he took his last 25 mg hydralazine today and his pharmacy doesn't have further refills available. Chart Reviewed: The following Rx was sent on 09/10/21 by Fadi Gomez CNP to [facility]'s pharmacy in [place]: Called Nikita back to discuss. He is requesting separate 25 mg tablets. Explained because he picked upthe 405 tablets of the 50 mg Rx, his insurance will not cover another 25 mg Rx at this time as instructions on 50 mg tablets say to take 1.5 mg TID. Requested he call clinic back when running low on current dose and in future can fill 1 rx of 50 mg tablets and 2nd rx with 25 mg tablets. He will cut in1/2 for now until runs out. He voices understanding and denies further questions or concerns at thistime. Future Appointments Date Time Provider Department Center 10/10/2021 9:45 AM Fidencio Solis MD [facility] Elizabeth Fernandez RN BSN [facility] Chemical Compounder [facility] [place], [place] [phone] 09/16/21, 10:43 AM ITE WORKER documented in this encounter Plan of Treatment Upcoming Encounters Date Type Specialty Care Team Description 05/15/2022 Hospital Encounter Surgery Singh Torres MD [facility] [address] [place] [address] (Wo rk) 05/15/2022 Surgery Surgery Neo Torres MD BLEPHAROPLASTY BILATERAL [facility]S, INTERNAL & SURGEONS [place] PTOSIS REPAIR BILATERAL [address] [place] [address] (Wo rk) 06/25/2022 Ancillary Procedure Cardiology Kirk Silver MD [address] [place] [address] (Wo rk) Scheduled Procedures Name Priority Associated [...] on filedocumented in this encounter Care Teams Health/Safety Job Titles Relationship Specialty Start Date End Date Anatoliy Jackson, PCP - General 05/14/12 Heath More PCP - Internal Medicine INTERNAL MEDICINE - 01/06/14 MD Andreas ENDOCRINOLOGY, DIABETES ENDOCRINE CLINIC & METABOLISM [facility] [address] [place] [address] Peter Gipson PCP - Urology 04/02/15 MD Jordan [facility] UROLOGY [address] [place] [address] [address] [place], [place] [phone] Peter Mcmullen Assigned Musculoskeletal 06/01/20 MD Mahendra Provider [facility] [facility] [address] [place], [place] [address] Giuliana Gomez Assigned Heart and 06/30/21 A, MEDICAL CHARGE ENTRY SPECIALIST ALMOND BLANCHER OPERATOR Vascular Provider [address] [place], [place] [phone] Giuliana Gomez Nurse Practitioner Cardiovascular Disease 2 A, MEDICAL CHARGE ENTRY SPECIALIST ALMOND BLANCHER OPERATOR [address] [place] [phone] Fidencio Solis MD MD Cardiovascular Disease 08/21/21 [address], [facility] [address] [place] [phone] documented as of this encounter
--- OUTSIDE RECORDS SUMMARY | 2022-05-02 12:23 | XMS_ITS | Encounter Summary ---
:1950 Author Organization [place] Address [address] [facility] 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 documented as of this encounter Miscellaneous Notes Telephone Encounter - Laureen Emerson RN - 10/15/2021 2:52 PM CST Chat review reveals pt was taken to the ED after the time of our call and is being treated inpatientat this time. Will close this encounter at this time Wayne Emerson RN, BSN. 10/15/21 2:53 PM IC ADDRESS TECHNICIAN Telephone Encounter - Laureen Emerson RN - 10/14/2021 8:09 AM CST Images from the original note were not included. Call received from pt regarding medication change : -Will change Imdur 60 mg daily to Isordil 30 mg 3 times daily Pt reports this medication is not covered by his insurance as it is a tier 3 and it would be cost prohibitive for him. He has continued to take imdur 60mg daily at this time. Pt reports he had an episode on Thursday in which after taking his clonidine (first dose of the 0.2mg) he went for his routine morning walk. Pt reports he hade it about a mile and was not able to make it further. Pt became short of breath and very lightheaded. He had to rest for several minutes and then went home without completing his usual walk. Pt reports vitals on return home were BP 127/68, HR 47. Later in the evening BP 154/76, HR 66. BP log sent via fax: Routing to MD to review Imdur as he will not be able to take the isordil. Wayne Emerson RN, BSN. IC ADDRESS TECHNICIAN documented in this encounter Plan of Treatment Upcoming Encounters Date Type Specialty Care Team Description 05/15/2022 Hospital Encounter Surgery Singh Torres MD [facility] [address] [place] [phone] (Wo rk) 05/15/2022 Surgery Surgery Neo Torres MD BLEPHAROPLASTY BILATERAL [facility]S, INTERNAL & [facility]GE[facility] PTOSIS REPAIR BILATERAL [address] [place] [phone] (Wo rk) 06/25/2022 Ancillary Procedure Cardiology Kirk Silver MD [address] [place] [phone] (Wo rk) Scheduled Procedures Name Priority Associated [...] on filedocumented in this encounter Care Teams Field Sales Representative Relationship Specialty Start Date End Date Anatoliy Jackson, PCP - General 05/14/12 Heath More PCP - Internal Medicine INTERNAL MEDICINE - 01/06/14 MD Andreas ENDOCRINOLOGY, DIABETES ENDOCRINE CLINIC & METABOLISM [facility] [address] [place] [phone] Peter Gipson PCP - Urology 04/02/15 MD Jordan [facility] [address] [place] [address] [address] [place], [place] [phone] Peter Mcmullen Assigned Musculoskeletal 06/01/20 MD Mahendra Provider [facility] [place], [place] [address] [place], [place] [phone] Giuliana Gomez Assigned Heart and 06/30/21 A, CALLIE HEADER BOSS Vascular Provider [address] [place] [phone] Giuliana Gomez Nurse Practitioner Cardiovascular Disease 2 A, COMPUTER INSTALLER HEADER BOSS [address] [place] [address] Fidencio Solis MD MD Cardiovascular Disease 08/21/21 [address], [address] [place] [phone] documented as of this encounter
--- OUTSIDE RECORDS SUMMARY | 2022-05-02 12:23 | XMS_ITS | Encounter Summary ---
:1950 Author Organization [place] Address [address] [facility] 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 documented as of this encounter Plan of Treatment Upcoming Encounters Date Type Specialty Care Team Description 05/15/2022 Hospital Encounter Surgery Singh Torres MD [facility] [address] [place] [phone] (Wo rk) 05/15/2022 Surgery Surgery Neo Torres MD BLEPHAROPLASTY BILATERAL [facility]S, INTERNAL & SURGEONS PA PTOSIS REPAIR BILATERAL [address] [place] [address] (Wo rk) 06/25/2022 Ancillary Procedure Cardiology Kirk Silver MD [address] [place] [address] [...] on filedocumented in this encounter Care Teams Train Station Agent Relationship Specialty Start Date End Date Anatoliy Jackson, PCP - General 05/14/12 Heath More PCP - Internal Medicine INTERNAL MEDICINE - 01/06/14 MD Andreas ENDOCRINOLOGY, DIABETES ENDOCRINE CLINIC & METABOLISM [facility] [address] [place] [phone] Peter Gipson PCP - Urology 04/02/15 MD Jordan [facility] UROLOGY [address] [place] [address] Peter Mcmullen Assigned Musculoskeletal 06/01/20 MD Mahendra Provider [address] [place], [place] [phone] Giuliana Gomez Assigned Heart and 06/30/21 A, DIE CUTTER FLAMER AFTER LASTING Vascular Provider [address] [place] [address] Giuliana Gomez Nurse Practitioner Cardiovascular Disease 2 A, DIE CUTTER FLAMER AFTER LASTING [address] [place] [phone] Fidencio Solis MD MD Cardiovascular Disease 08/21/21 [address], [address] [place] [phone] documented as of this encounter
--- OUTSIDE RECORDS SUMMARY | 2022-05-02 12:23 | XMS_ITS | Encounter Summary ---
:1950 Author Organization [place] Address [address] [facility] [place] [address] Care Team Providers Name Role Phone Anatoliy Jackson MD Primary Care Provider Heath More MD Unavailable Peter Gipson MD Unavailable Peter Mcmullen MD Unavailable Giuliana Gomez APRN MEN'S LOCKER ROOM ATTENDANT Unavailable Giuliana Gomez APRN MEN'S LOCKER ROOM ATTENDANT Unavailable Fidencio Solis MD Unavailable Reason for Visit Reason Onset Date Comments Refill Request 10/11/2021 clonidine Encounter Details Date Type Department Care Team Description 10/11/2021 Refill [facility] Ruthy Solis MD Refill Request [facility] Heart [address], (clonidin e) [facility] [address] [address] [place], [place] [address] [address] [place] [address] Social History Tobacco Use Types [...] with No / Unsure 10/10/2021 9:44 AM 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 documented as of this encounter Miscellaneous Notes Telephone Encounter - Tyrone Baron RN - 10/11/2021 12:58 PM CST [facility] Cardiology Refill Guideline reviewed. Medication meets criteria for refill. Clonidine sent to [facility] in [place]. ROAD TRACK INSPECTOR documented in this encounter Plan of Treatment Upcoming Encounters Date Type Specialty Care Team Description 05/15/2022 Hospital Encounter Surgery Singh Torres MD [facility] [address] [place] [phone] (Rosalva ferreira) 05/15/2022 Surgery Surgery Neo Torres MD BLEPHAROPLASTY BILATERAL [facility] L IDS, INTERNAL & SURGEONS PA PTOSIS REPAIR BILATERAL [address] [place] [phone] (Wo rk) 06/25/2022 Ancillary Procedure Cardiology Kirk Silver MD [address] [place] [address] (Rosalva ferreira) Scheduled Procedures Name Priority Associated Diagnoses Date/Time [...] artery bypass graft) Postsurgical aortocoronary bypass status Essential hypertension Unspecified essential hypertension 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 documented in this encounter Care Teams Rn Transplant Relationship Specialty Start Date End Date Anatoliy Jackson, PCP - General 05/14/12 Heath More PCP - Internal Medicine INTERNAL MEDICINE - 01/06/14 MD Andreas ENDOCRINOLOGY, DIABETES ENDOCRINE CLINIC & [facility]OLISM [facility] [address] [place] [phone] Peter Gipson PCP - Urology 04/02/15 MD Jordan [facility] UROLOGY [address] [place] [address] Peter Mcmullen Assigned Musculoskeletal 06/01/20 MD Mahendra Provider [facility] [place], [place] [address] [place], [place] [address] Giuliana Gomez Assigned Heart and 06/30/21 A, ARC CUTTER MEN'S LOCKER ROOM ATTENDANT Vascular Provider [address] [place] [address] Giuliana Gomez Nurse Practitioner Cardiovascular Disease 2 A, ARC CUTTER MEN'S LOCKER ROOM ATTENDANT [address] [place] [address] Fidencio Solis MD MD Cardiovascular Disease 08/21/[address], [facility] [address] [place] [address] documented as of this encounter
--- OUTSIDE RECORDS SUMMARY | 2022-05-02 12:23 | XMS_ITS | Encounter Summary ---
:1950 Author Organization [place] Address [address] [place] [address] Care Team Providers Name Role Phone Anatoliy Jackson MD Primary Care Provider Heath More MD Unavailable Peter Gipson MD Unavailable Peter Mcmullen MD Unavailable Ailyn Julien GUIDANCE AND CONTROL SYSTEM ENGINEER DRAFTING SUPERVISOR Unavailable Ailyn Julien APRN DRAFTING SUPERVISOR Unavailable Fidencio Solis MD Unavailable Reason for Visit Reason Comments Dizziness Encounter Details Date Type Department Care Team Description 10/14/2021 Emergency [facility] Ricki Maldonado MD [facility] [address] [place], [place] [id number] Junctional escape rhythm (Primary Dx); [facility] Heart Fidencio Solis MD [address] [place] [id number] Symptomatic bradycardia Care [address] [place] [address] Social History Tobacco Use Types Packs/Day Years [...] with No / Unsure 10/14/2021 11:58 AM [employer]ER [employer] someone who was confirmed or 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 documented as of this encounter Last Filed Vital Signs Vital Sign Reading Time Taken Comments Blood Pressure 129/61 10/14/2021 4:46 PM RU[employer]ER [employer] Pulse 60 10/14/2021 4:46 PM [employer]ER [employer] Temperature 36.4 ??C (97.6 ??F) 10/14/2021 12:01 PM [employer] [employer] Respiratory Rate 12 10/14/2021 4:46 PM RU[employer]ER [employer] Oxygen Saturation 100% 10/14/2021 4:46 PM RU[employer]ER [employer] Inhaled Oxygen Concentration - - Weight 98 kg (216 lb) 10/14/2021 12:01 PM [employer] [employer] Height 180.3 cm (5' 11) 10/14/2021 12:01 PM RU[employer] [employer] Body Mass Index 30.13 10/14/2021 12:01 PM RU[employer]ER [employer] documented in this encounter Medications at Time [...] Essential hypertension daily (with meals) and 2029 Continuous Blood Gluc 0 Sensor [...] B-D MICRO FINE as directed 100 0 09/18/2004/2 CC SYRINGES Turmeric 500 MG CAPS Take [...] mouth every Coronary artery disease evening involving [place] coronary artery of [place] heart without angina pectoris, Hyperlipidemia LDL goal [...] myocardial territory andwould not explain echocardiographic findings. [place] vessel CAD was otherwise unchanged from pre-CABG coronary angiogram 03/2021. Since patient was asymptomatic of angina, this has been managed medically. Troponin normal on presentation. #??CAD with recent CABG 04/19/2021,??DUOGLASS to LAD, reverse SVG to PDA, reverse [...] Vega, as well as cardiology EP at [facility] Dr. Berman, greatly appreciate assistance/collaboration, patient will need transfer to [facility] for continued care Thank you for allowing our team to participate in the care of Nikita Anderson. Please do not hesitateto page me with any questions or concerns. Fidencio Solis MD, [facility] Cardiology Text Page October 14, 2021 Voice recognition software utilized. I spent a total of 55 minutes (excluding procedure time) personally providing and directing criticalcare services at the bedside and on the unit for this patient. History of Present Illness: I had the opportunity to see patient Nikita Anderson at [facility] ED for a cardiology consultation. As you [...] the LAD and RCA, also with a EDITOR SCHOOL PHOTOGRAPH of OM 2. ??Patient underwent bypass surgery [...] territory and would not explain echocardiographic findings. [place] vesselCAD was otherwise unchanged from pre- CABG [...] their request, we referred him to the [facility] for further management of hypertension and [...] Coronary Graft; Surgeon: Mahendra Vega MD; Location: [facility] CARDIAC [facility] ??? CV CORONARY ANGIOGRAM N/A 03/13/2021 Procedure: Coronary Angiogram; Surgeon: Darwin Valero MD; Location: [facility] CARDIAC [facility] ??? CV HEART CATHETERIZATION WITH POSSIBLE INTERVENTION N/A 07/03/2021 Procedure: Coronary Angiogram; Surgeon: Mahendra Vega MD; Location: [facility] CARDIAC CATHLAB ??? CV INSTANTANEOUS WAVE-FREE RATIO N/A 03/13/2021 Procedure: Instantaneous Wave-Free Ratio; Surgeon: Darwin Valero MD; Location: [facility] CARDIAC [facility]EM[facility] ??? CV LEFT HEART CATH N/A 07/03/2021 Procedure: Left Heart Cath; Surgeon: Mahendra Vega MD; Location: HEART CARDIAC [facility]ITCH [facility]EM[facility] ??? CV LEFT VENTRICULOGRAM N/A 07/03/2021 Procedure: Left Ventriculogram; Surgeon: Mahendra Vega MD; Location: [facility] CARDIAC [facility]ITCH [facility]EMMER ??? HC LEFT HEART CATHETERIZATION 04/01/2016 mild [...] 8:30PM and at bedtime 05/01/21 Yasir Altamirano, glucagon 1 MG kit 1 mg once [...] Current medications: Current Facility-Administered Medications Ordered in [facility] Medication Dose Route Frequency Last Rate Last Admin ??? fentaNYL (PF) (SUBLIMAZE) 100 MCG/2ML injection ??? lidocaine (PF) (XYLOCAINE) 1 % injection ??? midazolam (VERSED) 1 MG/ML injection Current Outpatient Medications Ordered in [facility] Medication ??? acetaminophen (TYLENOL) 325 MG [...] Limited Result Value Biplane LVEF 46% Narrative [id number]^ANAYA^AILYN^[facility] Echocardiography Laboratory [address] [place] [address] Name: NIKITA ANDERSON : 1950 Study Date: 06/06/2021 07:32 AM Age: 70 yrs Gender: Male Patient Location: [facility] Reason For Study: Coronary artery disease involving [...] a or b) (GFR 30 - 59) ER [employer] TE[employer] WATER documented in this encounter ED Notes Carlotta Moseley RN - 10/14/2021 12:01 PM CST Pt c/o feeling light headed, pulse irregular. Triple bypass 04/19/21, also med change clonodine 0.1 mg to 0.2 mg increased Thursday. ER [employer] TESTER WATER Harshil Maldonado MD - 10/14/2021 11:46 AM [...] and is attempting to be seen at [facility] for further evaluation of this problem. [...] angiography Left heart cath x2 Left ventriculogram [place] teeth extraction Prostatectomy Tonsillectomy Family History: Mother: [...] wave abnormality. Abnormal ECG. Rate [address] interval 128 ms. QRS duration 106 ms. QT/QTc 466/340 ms. P-R-T axes 48 40 29. ECG 2 ECG taken at 1340, ECG read at 1346 Junctional bradycardia. Low voltage QRS. Nonspecific ST and T wave abnormality. Abnormal ECG. New junctional bradycardia as compared to prior, dated 10/14/2021. Rate [address] interval * ms. QRS duration 102 ms. [...] 1312 I spoke with Maverick Ann APRN [facility], hospitalist, to discuss the patient's case. [address] Solis to discuss the patient's recent EKG. [address] Solis again to discuss the patient's treatment plan. [address] Solis the patient's plan for transfer following his procedure. [address] Horn, hospitalist at [facility], to discuss the patient's placement following his procedure. Disposition: The patient was transferred to the cath laboratory technician under the care of Dr. Vega. Impression [...] for temporary transvenous pacemaker placement here at [facility]. I arranged bed at [facility] ICU post pacemaker placement. Dr. Solis discussed with Dr. Vega who will be performing the procedure. Updated patient and multiple times and answered all the questions. Patient transferred to [facility]. Critical Care Time: was 50 minutes for this patient excluding procedures Diagnosis: ICD-10-CM 1. 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 Symptomatic bradycardia R00.1 Scribe Disclosure: I, Essence Hook, am serving as a scribe at 12:41 PM on 10/14/2021 to document services personally performed by Harshil Maldonado MD based on my observations and the provider's statements to me. Harshil Maldonado MD 10/14/21 164 ER [employer] TE[employer] W[employer] documented in this encounter Miscellaneous Notes Pre-Procedure [...] data, medications, and the plan for sedation ER [employer] TE[employer] documented in this encounter Plan of Treatment Upcoming Encounters Date Type Specialty Care Team Description 05/15/2022 Hospital Encounter Surgery Singh Torres MD [facility] [address] [place] [address] (Wo rk) 05/15/2022 Surgery Surgery Neo Torres MD BLEPHAROPLASTY BILATERAL [facility] [facility] PTOSIS REPAIR BILATERAL [address] [place] [id number] (Wo rk) 06/25/2022 Ancillary Procedure Cardiology Kirk Silver MD [address] [place] [address] (Wo rk) Scheduled Procedures Name Priority Associated [...] escape Resu lts for this PACEMAKER INSERTION [employer] rhythm procedur e are in the results section. EKG 12-LEAD, TRACING STAT 10/14/2021 1:40 PM R esults for this ONLY [employer] procedure are i n the results section. EXTRA TUBE STAT 10/14/2021 12:31 Results for this PM [employer] procedure are i n the results section. EXTRA PURPLE TOP TUBE STAT 10/14/2021 12:31 Re sults for this PM [employer] procedure are i n the results section. EXTRA GREEN TOP STAT 10/14/2021 12:31 Results for this (LITHIUM HEPARIN) PM [employer] procedure are in TUBE the results section. EXTRA GREEN TOP STAT 10/14/2021 12:31 Results for this (LITHIUM HEPARIN) PM [employer] procedure are in TUBE the results section. EXTRA RED TOP TUBE STAT 10/14/2021 12:31 Resul ts for this PM [employer] procedure are i n the results section. EXTRA BLUE TOP TUBE STAT 10/14/2021 12:31 Resu lts for this PM [employer] procedure are i n the results section. CBC WITH PLATELETS STAT 10/14/2021 12:31 Resul ts for this AND DIFFERENTIAL PM [employer] procedure a re in the results section. CBC WITH PLATELETS & STAT 10/14/2021 12:31 Res ults for this DIFFERENTIAL PM [employer] procedure are i n the results section. TROPONIN I STAT 10/14/2021 12:31 Results for this PM [employer] procedure are i n the results section. MAGNESIUM STAT 10/14/2021 12:31 Results for this PM [employer] procedure are i n the results section. BASIC METABOLIC PANEL STAT 10/14/2021 12:31 Re sults for this PM [employer] procedure are i n the results section. EKG 12-LEAD, TRACING STAT 10/14/2021 12:10 Res ults for this ONLY PM [employer] procedure are i n the results section. documented in this encounter Results CV TEMPORARY PACEMAKER INSERTION (10/14/2021 3:20 PM RUBBER [employer] TE[employer] WATER) Anatomical Region Laterality Modality Radio Fluoroscopy Specimen (Source) Anatomical Location Collection Method / Collectio n Time Received Time / Laterality Volume Narrative 10/14/2021 3:40 PM RUBBER [employer] TE[employer] WATER 1. ??Successful temporary pacemaker placement via RFV. ??Capture threshold 0.2 mA. 2. ??Initial PPM settings: ??60 bpm, 10 mA Temporary Pacemaker Rate= 60bpm Paced mA= 10 Plan - Strict bedrest while temporary pacemak er in place - Transfer to [facility] for management of temp orary [...] Access was successful. A 10 cm 6 Croatian sheath was placed. 5. Sheath Management: The 6F RFV sheath was sutured in place. 6. Estimated blood loss: < 5 ml The attending interventional cardiologis t was present and supervised all critical aspects the procedure. Fidencio Solis MD CV CARDIAC CATH ORDERABLES EKG 12-lead, tracing only (10/14/2021 1:40 PM RUBBER [employer] TE[employer] W[employer]) Component Value Ref Range Test Analysis Performed Pathologis t Method Time At Signature Systolic Blood mmHg RADIOLOGY Pressure RESULTS Diastolic Blood mmHg RADIOLOGY Pressure RESULTS Ventricular Rate 27 BPM RADIOLOGY RESULTS Atrial Rate [address] Interval ms RADIOLOGY RESULTS QRS Duration 102 ms RADIOLOGY RESULTS QT 470 ms RADIOLOGY RESULTS QTc 314 ms RADIOLOGY RESULTS P [place] degrees RADIOLOGY RESULTS R AXIS 32 degrees RADIOLOGY RESULTS T [place] 67 degrees RADIOLOGY RESULTS Interpretation Junctional bradycardia RA DIOLOGY ECG Low voltage QRS RESULTS Nonspecific ST and T wave abnormality Abnormal ECG When compared with ECG of 14-OCT-2021 12:10, (unconfirmed) Junctional rhythm has replaced Sinus rhythm Nonspecific T wave abnormality now evident in Anterior leads Confirmed by - EMERGENCY TRISTIAN Pryor PHYSICIAN ([id number]), marketing editor SADIA MORA ([id number]) on 10/15/2021 7:36:44 AM Specimen Anatomical Collection Method Collection Time Receive d Time (Source) Location / / Volume Laterality 10/14/2021 1:40 PM 7:36 [employer]ER [employer] AM [employer]ER [employer] aHrshil Maldonado MD ECG ORDERABLES Performing Organization Address City/State/ZIP Code Phon e Number RADIOLOGY RESULTS Extra Purple Top Tube (10/14/2021 12:31 PM RUBBER [employer] TE[employer] W[employer]) athologist Signature Hold Specimen [facility] 10/14/2021 [facility] 1:46 PM RUBBER [employer] TE[employer] WATER Specimen Anatomical Collection Method / Collection Time Recei shyla Time (Source) Location / Volume Laterality Blood STRUCTURE OF RIGHT Venipuncture / 10/14/2021 12:31 02/2022 UPPER LIMB / Unknown PM [employer] [employer] 12:38 PM RUBBER [employer] Unknown Harshil Maldonado MD LAB - BLOOD ORDERABLES Performing Organization Address City/State/ZIP Code Phon [place] [phone] Care Lab [address] Lab (1st floor, no room number) Extra Green Top (Morse Heparin) Tube (10/14/2021 12:31 PM RUBBER [employer] TE[employer] WATER) athologist Signature Hold Specimen [facility] 10/14/2021 [facility] 1:46 PM RUBBER [employer] TE[employer] WATER Specimen Anatomical Collection Method / Collection Time Recei shyla Time (Source) Location / Volume Laterality Blood STRUCTURE OF RIGHT Venipuncture / 10/14/2021 12:31 02/2022 UPPER LIMB / Unknown PM [employer] 12:37 PM RUBBER [employer] TE[employer] WATER Unknown Harshil Maldonado MD LAB - BLOOD ORDERABLES Performing Organization Address City/State/[place] [address] Care Lab [address] Lab (1st floor, no room number) Extra Green Top (Morse Heparin) Tube (10/14/2021 12:31 PM RUBBER [employer] TE[employer] WATER) P athologist Signature Hold Specimen [facility] 10/14/2021 [facility] 1:46 PM RUBBER [employer] TE[employer] WATER Specimen Anatomical Collection Method / Collection Time Recei shyla Time (Source) Location / Volume Laterality Blood STRUCTURE OF RIGHT Venipuncture / 10/14/2021 12:31 02/2022 UPPER LIMB / Unknown PM [employer] 12:37 PM RUBBER [employer] TE[employer] WATER Unknown Harshil Maldonado MD LAB - BLOOD ORDERABLES Performing Organization Address City/[facility]/[place] [address] Care Lab [address] Lab (1st floor, no room number) Extra Red Top Tube (10/14/2021 12:31 PM RUBBER GOODS TE[employer] WATER) athologist Signature Hold Specimen [facility] 10/14/2021 [facility] 1:46 PM RUBBER [employer] TE[employer] WATER Specimen Anatomical Collection Method / Collection Time Recei shyla Time (Source) Location / Volume Laterality Blood STRUCTURE OF RIGHT Venipuncture / 10/14/2021 12:31 02/2022 UPPER LIMB / Unknown PM [employer] 12:38 PM RUBBER [employer] TE[employer] WATER Unknown Harshil Maldonado MD LAB - BLOOD ORDERABLES Performing Organization Address City/State/[place] [address] Care Lab [address] Lab (1st floor, no room number) Extra Blue Top Tube (10/14/2021 12:31 PM RUBBER [employer] TE[employer] WATER) athologist Signature Hold Specimen [facility] 10/14/2021 [facility] 1:46 PM RUBBER [employer] TE[employer] WATER Specimen Anatomical Collection Method / Collection Time Recei shyla Time (Source) Location / Volume Laterality Blood STRUCTURE OF RIGHT Venipuncture / 10/14/2021 12:31 02/2022 UPPER LIMB / Unknown PM [employer] 12:38 PM RUBBER [employer] TE[employer] WATER Unknown Harshil Maldonado MD LAB - BLOOD ORDERABLES Performing Organization Address City/[facility]/ZIP Code [place] [address] Care Lab [address] Lab (1st floor, no room number) Magnesium (10/14/2021 12:31 PM RUBBER [employer] TE[employer] W[employer]) P athologist Signature Magnesium 2.3 1.6 - 2.3 10/14/2021 [facility] mg/dL 2:32 PM RU[employer]ER [employer] Specimen Anatomical Collection Method / Collection Time Recei shyla Time (Source) Location / Volume Laterality Blood STRUCTURE OF RIGHT Venipuncture / 10/14/2021 12:31 02/2022 UPPER LIMB / Unknown PM RU[employer] 12:37 PM RUBBER [employer] TE[employer] WATER Unknown Harshil Maldonado MD LAB - BLOOD ORDERABLES Performing Organization Address City/[facility] [place]on [place] [address] Care Lab [address] Lab (1st floor, no room number) (ABNORMAL) CBC with platelets and differential (10/14/2021 12:31 PM RUBBER [employer] W[employer]) Patholo gist Method Time Signature WBC Count 8.3 4.0 - 10/14/2021 [facility] 11.0 12:41 PM RUBBER [employer] 10e3/uL RBC Count 4.01 (L) 4.40 - 10/14/2021 [facility] 5.90 12:41 PM RUBBER [employer] 10e6/uL Hemoglobin 11.2 (L) 13.3 - 10/14/2021 [facility] 17.7 g/dL 12:41 PM RU[employer]ER [employer] Hematocrit 35.1 (L) 40.0 - 10/14/2021 [facility] 53.0 % 12:41 PM RUBBER [employer] MCV 88 78 - 100 10/14/2021 [facility] fL 12:41 PM RUBBER [employer] MCH 27.9 26.5 - 10/14/2021 [facility] 33.0 pg 12:41 PM RUBBER [employer] MCHC 31.9 31.5 - 10/14/2021 [facility] 36.5 g/dL 12:41 PM RUBBER [employer] TE[employer] W[employer] RDW 14.7 10.0 - 10/14/2021 [facility] 15.0 % 12:41 PM RUBBER [employer] Platelet Count 187 150 - 450 10/14/2021 [facility] 10e3/uL 12:41 PM RUBBER [employer] TE[employer] W[employer] % Neutrophils 68 % 10/14/2021 [facility] 12:41 PM RUBBER [employer] TE[employer] W[employer] % Lymphocytes 17 % 10/14/2021 [facility] 12:41 PM RUBBER [employer] TE[employer] WATER % Monocytes 10 % 10/14/2021 [facility] 12:41 PM RUBBER [employer] TE[employer] W[employer] % Eosinophils 4 % 10/14/2021 [facility] 12:41 PM RUBBER [employer] TE[employer] W[employer] % Basophils 1 % 10/14/2021 [facility] 12:41 PM RUBBER [employer] TE[employer] W[employer] % Immature 0 % 10/14/2021 [facility] Granulocytes 12:41 PM RUBBER [employer] NRBCs per 100 0 <1 /100 10/14/2021 [facility] WBC 12:41 PM RUBBER [employer] Absolute 5.7 1.6 - 8.3 10/14/2021 [facility] Neutrophils 10e3/uL 12:41 PM RUBBER [employer] Absolute 1.4 0.8 - 5.3 10/14/2021 [facility] Lymphocytes 10e3/uL 12:41 PM RUBBER [employer] Absolute 0.8 0.0 - 1.3 10/14/2021 [facility] Monocytes 10e3/uL 12:41 PM RUBBER [employer] Absolute 0.3 0.0 - 0.7 10/14/2021 [facility] Eosinophils 10e3/uL 12:41 PM RUBBER [employer] Absolute 0.1 0.0 - 0.2 10/14/2021 [facility] Basophils 10e3/uL 12:41 PM RUBBER [employer] Absolute 0.0 <=0.4 10/14/2021 [facility] Immature 10e3/uL 12:41 PM RUBBER [employer] TE[employer] W[employer] Granulocytes Absolute NRBCs 0.0 10e3/uL 10/14/2021 [facility] 12:41 PM RUBBER [employer] TE[employer] Specimen Anatomical Collection Method / Collection Time Recei shyla Time (Source) Location / Volume Laterality Blood STRUCTURE OF RIGHT Venipuncture / 10/14/2021 12:31 02/2022 UPPER LIMB / Unknown PM [employer] [employer] 12:38 PM RUBBER [employer] TE[employer] WATER Unknown Harshil Maldonado MD LAB - BLOOD ORDERABLES Performing Organization Address City/State/ZIP Code [place] [address] Care Lab [address] Lab (1st floor, no room number) Troponin I (now) (10/14/2021 12:31 PM RUBBER [employer] TE[employer] WATER) P athologist Signature Troponin I High 27 <79 ng/L 10/14/2021 LABORATORY Sensitivity 1:03 PM RUBBER [employer] TE[employer] Comment: This Troponin-I result was obta ined using a Siemens Dimension [place] High Sensitivity Troponin-I assay (TNIH). Eff ective 07/02/21, nine labs/sites in the [facility] switched from a Siemens [place] Contemporary Troponin I assay (CTNI) to a Siemens [place] High-Sensitivity Troponi n I assay (TNIH). Specimen Anatomical Collection Method / Collection Time Recei shlya Time (Source) Location / Volume Laterality Blood STRUCTURE OF RIGHT Venipuncture / 10/14/2021 12:31 02/2022 UPPER LIMB / Unknown PM [employer] 12:37 PM RUBBER [employer] TE[employer] WATER Unknown Harshil Maldonado MD LAB - BLOOD ORDERABLES Performing Organization Address City/State/ZIP Code [place] [address] Care Lab [address] Lab (1st floor, no room number) (ABNORMAL) Basic metabolic panel (BMP) (10/14/2021 12:31 PM RUBBER [employer] TE[employer] WATER) Patholo gist Method Time Signature Sodium 138 133 - 144 10/14/2021 [facility] mmol/L 12:59 PM [employer] Potassium 5.4 (H) 3.4 - 5.3 10/14/2021 LABORATORY mmol/L 12:59 PM [employer] Chloride 110 (H) 94 - 109 10/14/2021 LABORATORY mmol/L 12:59 PM [employer] Carbon Dioxide 24 20 - 32 10/14/2021 LABORATORY (CO2) mmol/L 12:59 PM [employer] Anion Gap 4 3 - 14 10/14/2021 LABORATORY mmol/L 12:59 PM [employer] Urea Nitrogen 50 (H) 7 - 30 10/14/2021 LABORATORY mg/dL 12:59 PM [employer] Creatinine 1.37 (H) 0.66 - 10/14/2021 [facility] 1.25 mg/dL 12:59 PM [employer] Calcium 9.0 8.5 - 10.1 10/14/2021 [facility] mg/dL 12:59 PM [employer] Glucose 100 (H) 70 - 99 10/14/2021 [facility] mg/dL 12:59 PM [employer] GFR Estimate 55 (L) >60 10/14/2021 [facility] mL/min/1.7 12:59 PM RU[employer]ER [employer] W[employer] 3m2 Comment: Effective July 30, 2021 eGF Rcr in adults is calculated using the 2020 CKD-EPI creatinine equation which includ es age and gender (Prateek et al., NEJM, DOI: 10.1056/FESMle2859374) Specimen Anatomical Collection Method / Collection Time Recei shyla Time (Source) Location / Volume Laterality Blood STRUCTURE OF RIGHT Venipuncture / 10/14/2021 12:31 02/2022 UPPER LIMB / Unknown PM [employer] 12:37 PM RU[employer]ER [employer] TE[employer] WATER Unknown Harshil Maldonado MD LAB - BLOOD ORDERABLES Performing Organization Address City/State/ZIP Code [place] [phone] Care Lab [address] Lab (1st floor, no room number) EKG 12-lead, tracing only (10/14/2021 12:10 PM RUBBER [employer] TE[employer] WATER) Component Value Ref Range Test Analysis Performed Pathologis t Method Time At Signature Systolic Blood mmHg RADIOLOGY Pressure RESULTS Diastolic Blood mmHg RADIOLOGY Pressure RESULTS Ventricular Rate 32 BPM RADIOLOGY RESULTS Atrial Rate [address] Interval 128 ms RADIOLOGY RESULTS QRS Duration 106 ms RADIOLOGY RESULTS QT 466 ms RADIOLOGY RESULTS QTc 340 ms RADIOLOGY RESULTS P [place] 48 degrees RADIOLOGY RESULTS R AXIS 40 degrees RADIOLOGY RESULTS T [place] 29 degrees RADIOLOGY RESULTS Interpretation Sinus bradycardia RADIOLO GY ECG Nonspecific T wave abnormality RESULTS Abnormal ECG No previous ECGs available Specimen Anatomical Collection Method Collection Time Receive d Time (Source) Location / / Volume Laterality 10/14/2021 12:10 10/14/2021 2:27 PM RU[employer] [employer] PM RU[employer]ER [employer] TE[employer]ATER Harshil Maldonado MD ECG ORDERABLES Performing Organization [...] fentaNYL (PF) (SUBLIMAZE) Given 10/14/2021 2:53 PM RUBBER [employer] TE[employer] 50 mcg injection ONCE PRN, Administer over 3-5 Minutes, Starting on Thu10/14/21 at 1453, Cardiac Intra-procedure lidocaine 1 % Given 10/14/2021 2:54 PM RUBBER [employer] TE[employer] W[employer] 8 mLs Right Thigh ONCE PRN, Starting on Thu10/14/21 at 1454, Cardiac Intra-procedure midazolam (VERSED) injection Given 10/14/2021 2:54 PM RU[employer]ER [employer] 1 mg Administer over 2 Minutes, ONCE PRN, Starting on Thu10/14/21 at 1454, Cardiac Intra-procedure documented in this encounter Active and Recently Administered Medications Times are shown in [employer]ER [employer]. PRN Medication Order 10/12/2021 10/13/2021 10/14/2021 [id number] [...] Intra-procedure documented in this encounter Care Teams Metal Rolling Mill Operator Relationship Specialty Start Date End Date Anatoliy Jackson PCP - General 05/14/12 Heath More PCP - Internal Medicine INTERNAL MEDICINE - 01/06/14 MD Andreas ENDOCRINOLOGY, [facility] [address] [place] [phone] Peter Gipson PCP - Urology 04/02/15 MD Jordan [facility] [address] [facility] [address] [place] [address] Peter Mcmullen Assigned Musculoskeletal 06/01/20 MD Mahendra Provider [address] [place], [place] [address] Ailyn Julien Assigned Heart and 06/30/21 A, GUIDANCE AND CONTROL SYSTEM ENGINEER DRAFTING SUPERVISOR Vascular Provider [address] [place] [id number] Ailyn Julien Nurse Practitioner Cardiovascular Disease 2 A, GUIDANCE AND CONTROL SYSTEM ENGINEER DRAFTING SUPERVISOR [address] [place] [id number] Fidencio Solis MD MD Cardiovascular Disease 08/21/21 [address], [facility] [address] [place] [id number] documented as of this encounter
--- OUTSIDE RECORDS SUMMARY | 2022-05-02 12:23 | XMS_ITS | Encounter Summary ---
:1950 Author Organization [place] Address [address] [facility] 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 documented as of this encounter Progress Notes Laureen Emerson RN - 10/14/2021 12:58 PM CST Referral to [facility] completed and sent to referral line. Wayne Emerson RN, BSN. .10/14/21 12:59 PM FINISH MILL OPERATOR documented in this encounter Plan of Treatment Upcoming Encounters Date Type Specialty Care Team Description 05/15/2022 Hospital Encounter Surgery Singh Torres MD [facility] [address] [place] [address] (Wo rk) 05/15/2022 Surgery Surgery Neo Torres MD BLEPHAROPLASTY BILATERAL [facility] PTOSIS REPAIR BILATERAL [address] [place] [place] [address] [place] [address] (Wo rk) 06/25/2022 Ancillary Procedure Cardiology Kirk Silver MD [address] [place] [id number] (Wo rk) Scheduled Procedures Name Priority Associated [...] on filedocumented in this encounter Care Teams Adhesion Tester Relationship Specialty Start Date End Date Anatoliy Jackson, PCP - General 05/14/12 Heath More PCP - Internal Medicine INTERNAL MEDICINE - 01/06/14 MD Andreas ENDOCRINOLOGY, DIABETES [facility] & [facility]OLISM [facility] [address] [place] [address] [place] [phone] Peter Gipson PCP - Urology 04/02/15 MD Jordan [facility] [address] [place] [address] [address] [place] [address] Peter Mcmullen Assigned Musculoskeletal 06/01/20 MD Mahendra Provider [facility] [facility] [address] [place], [place] [address] Giuliana Gomez Assigned Heart and 06/30/21 A, INDUSTRIAL WASTE INSPECTOR INTERVENTIONAL PAIN PHYSICIAN Vascular Provider [address] [place] [id number] Giuliana Gomez Nurse Practitioner Cardiovascular Disease 2 A, INDUSTRIAL WASTE INSPECTOR INTERVENTIONAL PAIN PHYSICIAN [address] [place] [id number] Fidencio Solis MD MD Cardiovascular Disease 08/21/[address], [facility] [address] [place] [id number] documented as of this encounter
--- OUTSIDE RECORDS SUMMARY | 2022-05-02 12:24 | XMS_ITS | Encounter Summary ---
:1950 Author Organization [place] Address [address] [facility] 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 documented as of this encounter Plan of Treatment Upcoming Encounters Date Type Specialty Care Team Description 05/15/2022 Hospital Encounter Surgery Singh Torres MD [facility] [address] [place] [address] (Wo rk) 05/15/2022 Surgery Surgery Neo Torres MD BLEPHAROPLASTY BILATERAL [facility] & [facility] PTOSIS REPAIR BILATERAL [address] [place] [address] [place] [address] (Wo rk) 06/25/2022 Ancillary Procedure Cardiology Kirk Silver MD [address] [place] [address] (Wo rk) Scheduled Procedures Name Priority Associated [...] on filedocumented in this encounter Care Teams Allied Health Teacher Relationship Specialty Start Date End Date Anatoliy Jackson MD PCP - General 05/14/12 Heath More PCP - Internal Medicine INTERNAL MEDICINE - 01/06/14 MD Andreas ENDOCRINOLOGY, [facility] [address] [place] [address] Peter Gipson PCP - Urology 04/02/15 MD Jordan [facility] [address] [facility] [address] [place] [address] Peter Mcmullen Assigned Musculoskeletal 06/01/20 MD Mahendra Provider [address] [place], [place] [address] Giuliana Gomez Assigned Heart and 06/30/21 A, SPA CONCIERGE NEON GLASS BLOWER Vascular Provider [address] [place], [place] [phone] documented as of this encounter
--- OUTSIDE RECORDS SUMMARY | 2022-05-02 12:24 | XMS_ITS | Encounter Summary ---
:1950 Author Organization [place] Address [address] [facility] 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 documented as of this encounter Plan of Treatment Upcoming Encounters Date Type Specialty Care Team Description 05/15/2022 Hospital Encounter Surgery Singh Torres MD [facility] [address] [place] [address] (Wo rk) 05/15/2022 Surgery Surgery Neo Torres MD BLEPHAROPLASTY BILATERAL [facility], [facility] & [facility] PTOSIS REPAIR BILATERAL [address] [place] [address] [place] [address] (Wo rk) 06/25/2022 Ancillary Procedure Cardiology Kirk Silver MD [address] [place] [address] (Wo rk) Scheduled Procedures Name Priority Associated [...] on filedocumented in this encounter Care Teams Laborer Vineyard Relationship Specialty Start Date End Date Anatoliy Jackson MD PCP - General 05/14/12 Heath More PCP - Internal Medicine INTERNAL MEDICINE - 01/06/14 MD Andreas ENDOCRINOLOGY, [facility] [address] [place] [address] Peter Gipson PCP - Urology 04/02/15 MD Jordan [facility] [address] [facility] [address] [place] [address] Peter Mcmullen Assigned Musculoskeletal 06/01/20 MD Mahendra Provider [address] [place], [place] [address] Giuliana Gomez Assigned Heart and 06/30/21 A, SOUND RECORDIST FLOOR PERSON Vascular Provider [address] [place], [place] [address] documented as of this encounter
--- OUTSIDE RECORDS SUMMARY | 2022-05-02 12:24 | XMS_ITS | Encounter Summary ---
:1950 Author Organization [place] Address [address] [facility] [place] [address] Care Team Providers Name Role Phone Anatoliy Jackson MD Primary Care Provider Heath More MD Unavailable Peter Gipson MD Unavailable Peter Mcmullen MD Unavailable Giuliana Gomez APRN TRAINING AND DEVELOPMENT PROFESSIONAL Unavailable [phone] Encounter Details Date Type Department Care Team Description 08/05/2021 Lab [facility] Heart Esse ntial hypertension; Clinic [place] Chronic renal insufficiency, stage 3 (moderate) (H) [address] [facility] [address] [place] [address] Social History Tobacco Use [...] been in contact with No / Unsure 08/05/2021 11:47 AM 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 documented as of this encounter Plan of Treatment Upcoming Encounters Date Type Specialty Care Team Description 05/15/2022 Hospital Encounter Surgery Singh Torres MD [facility] [address] [place] [address] (Wo rk) 05/15/2022 Surgery Surgery Neo Torres MD BLEPHAROPLASTY BILATERAL [facility], INTERNAL & SURGEONS PA PTOSIS REPAIR BILATERAL [address] [place] [address] (Wo rk) 06/25/2022 Ancillary Procedure Cardiology Kirk Silver MD [address] [place] [address] (Wo rk) Scheduled Procedures Name Priority Associated [...] Name Priority Date/Time Associated Diagnosis Comme nts BASIC METABOLIC Routine 08/05/2021 11:53 AM Essential Resul ts for this PANEL CERTIFIED MAINTENANCE WELDER hypertension procedure are in Chronic renal the results insufficiency, stage section . 3 (moderate) (H) documented in this encounter Results (ABNORMAL) Basic metabolic panel (08/05/2021 11:53 AM CERTIFIED MAINTENANCE WELDER) [facility] Method Time Signature Sodium 140 133 - 144 08/05/2021 [facility] mmol/L 12:26 PM CERTIFIED MAINTENANCE WELDER Potassium 4.7 3.4 - 5.3 08/05/2021 [facility] mmol/L 12:26 PM CERTIFIED MAINTENANCE WELDER Chloride 112 (H) 94 - 109 08/05/2021 LABORATORY mmol/L 12:26 PM CERTIFIED MAINTENANCE WELDER Carbon Dioxide 27 20 - 32 08/05/2021 LABORATORY (CO2) mmol/L 12:26 PM CERTIFIED MAINTENANCE WELDER Anion Gap 1 (L) 3 - 14 08/05/2021 LABORATORY mmol/L 12:26 PM CERTIFIED MAINTENANCE WELDER Urea Nitrogen 34 (H) 7 - 30 08/05/2021 LABORATORY mg/dL 12:26 PM CERTIFIED MAINTENANCE WELDER Creatinine 1.27 (H) 0.66 - 08/05/2021 LABORATORY 1.25 mg/dL 12:26 PM CERTIFIED MAINTENANCE WELDER Calcium 9.1 8.5 - 10.1 08/05/2021 LABORATORY mg/dL 12:26 PM CERTIFIED MAINTENANCE WELDER Glucose 100 (H) 70 - 99 08/05/2021 LABORATORY mg/dL 12:26 PM CERTIFIED MAINTENANCE WELDER GFR Estimate 60 (L) >60 08/05/2021 LABORATORY mL/min/1.7 12:26 PM CERTIFIED MAINTENANCE WELDER 3m2 Comment: Effective July 30, 2021 eGF Rcr in adults is calculated using the 2020 CKD-EPI creatinine equation which includ es age and gender (Prateek et al., NEJM, DOI: 10.1056/MRTUav1743925) Specimen Anatomical Collection Method / Collection Time Recei shyla Time (Source) Location / Volume Laterality Blood STRUCTURE OF RIGHT Venipuncture / 08/05/2021 11:53 UPPER LIMB / Unknown AM CERTIFIED MAINTENANCE WELDER 11:53 AM CERTIFIED MAINTENANCE WELDER Unknown Giuliana Gomez APRN TRAINING AND DEVELOPMENT PROFESSIONAL LAB - BLOOD ORDERABLES Performing Organization Address City/State/ZIP Code [place] [address] Care Lab [address] Lab (1st floor, no room number) documented in this encounter Visit Diagnoses Diagnosis Essential hypertension Unspecified essential hypertension Chronic renal insufficiency, stage 3 (mo derate) (H) 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 documented in this encounter Care Teams Die Inspector Relationship Specialty Start Date End Date Anatoliy Jackson MD PCP - General 05/14/12 Heath More PCP - Internal Medicine INTERNAL MEDICINE - 01/06/14 MD Andreas ENDOCRINOLOGY, ENDO[facility] METABOLISM [address] [place] [address] [place] [phone] Peter Gipson PCP - Urology 04/02/15 MD Jordan [facility] [address] [facility] [address] [place] [address] Peter Mcmullen Assigned Musculoskeletal 06/01/20 MD Mahendra Provider [facility] [facility] [address] [place], [place] [address] Giuliana Gomez Assigned Heart and 06/30/21 A, TURNTABLE MAN TRAINING AND DEVELOPMENT PROFESSIONAL Vascular Provider [address] [place] [id number] documented as of this encounter
--- OUTSIDE RECORDS SUMMARY | 2022-05-02 12:24 | XMS_ITS | Encounter Summary ---
:1950 Author Organization [place] Address [address] [place] [address] Care Team Providers Name Role Phone Anatoliy Jackson MD Primary Care Provider Heath More MD Unavailable Peter Gipson MD Unavailable Peter Mcmullen MD Unavailable Giuliana Gomez APRN PERSONNEL CLERK Unavailable [phone] Giuliana Gomez APRN PERSONNEL CLERK Unavailable [phone] Fidencio Solis MD Unavailable Reason for Visit Reason Comments CORE HTN Results BMP (Routine) - Closed Specialty Diagnoses / Procedures Referred By Contact Refer red To Contact Diagnoses Essential hypertension S/P coronary artery stent placement Fidencio Solis MD [address] [place] [address] Referral ID Status Reason Start Date Expiration Date Visits Requ ested Visits Authorized [id number] Closed 12/14/2020 12/14/2021 1 1 Encounter Details Date Type Department Care Team Description 09/10/2021 Office Visit Lori Giuliana Gomez hypertension; [facility] A HEELER MACHINE PERSONNEL CLERK S/P coronary artery stent placement; [facility] [address] S/P CABG (coronary artery by pass graft) [address] [employer] [facility] [address] [place] [address] [place], [place] [phone] (Wo rk) [address] [phone] Social History Tobacco Use Types Packs/Day Years [...] with No / Unsure 09/10/2021 1:43 PM SPORTS PHYSIOLOGIST someone who was confirmed or 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 documented as of this encounter Last Filed Vital Signs Vital Sign Reading Time Taken Comments Blood Pressure 162/68 09/10/2021 2:08 PM Meds @9:40AM SPORTS PHYSIOLOGIST Pulse 63 09/10/2021 2:08 PM SPORTS PHYSIOLOGIST Temperature - - Respiratory Rate - - Oxygen Saturation 99% 09/10/2021 2:08 PM SPORTS PHYSIOLOGIST Inhaled Oxygen Concentration - - Weight 100 kg (220 lb 6.4 oz) 09/10/2021 2:08 PM 208# H OME WT SPORTS PHYSIOLOGIST Height 180.3 cm (5' 11) 09/10/2021 2:08 PM SPORTS PHYSIOLOGIST Body Mass Index 30.74 09/10/2021 2:08 PM SPORTS PHYSIOLOGIST documented in this encounter Patient Instructions Patient InstructionsLucretia Trent CMA - 09/10/2021 2:30 PM CST Call CORE nurse for any questions or concerns Mon-Fri 8am-4pm: #[phone] For concerns after hours: #[phone] Medication changes: 1. Increase hydralazine to 75mg three times per day. Plan from today: 1. See Dr. Solis in October Lab results: see attached: Results for NIKITA ANDERSON ( ) as of 09/10/2021 14:59 Ref. Range 09/10/2021 13:52 Sodium Latest Ref Range: 133 - 144 mmol/L 142 Potassium Latest Ref Range: 3.4 - 5.3 mmol/L 5.1 Chloride Latest Ref Range: 94 - 109 mmol/L 114 (H) Carbon Dioxide Latest Ref Range: 20 - 32 mmol/L 26 Urea Nitrogen Latest Ref Range: 7 - 30 mg/dL 49 (H) Creatinine Latest Ref Range: 0.66 - 1.25 mg/dL 1.27 (H) GFR Estimate Latest Ref Range: >60 mL/min/1.73m2 60 (L) Calcium Latest Ref Range: 8.5 - 10.1 mg/dL 8.9 Anion Gap Latest Ref Range: 3 - 14 mmol/L 2 (L) Glucose Latest Ref Range: 70 - 99 mg/dL 85 TS PHYSIOLOGIST documented in this encounter Progress Notes Giuliana Gomez APRN CNP - 09/10/2021 2:30 PM CST CARDIOLOGY CLINIC / C.O.R.E. CLINIC VISIT (Heart Failure Specialty) DOS: 2.1.22 Nikita Anderson : 1950 Primary Manual Training Teacher:??Dr. Solis??( He was followed??previously??with Dr. Aguiar) ?? REASON FOR VISIT:??CAD, post CABG/ established CORE patient/ post angiogram? HISTORY OF PRESENT ILLNESS:?? Mr. Anderson is a 70-year-old male with a past medical history significant for: 1)??Hypertension 2)??Hyperlipidemia 3)??Diabetes 4)??Chronic kidney disease 5)??Coronary artery disease A.??Coronary angiography/heart catheterization 07/2013 demonstrated nonobstructive coronary artery disease. ??Subsequently he had experienced dyspnea on exertion and a nuclear stress test 12/2014 was also abnormal.?? B.??2014??Coronary angiography demonstrated obstructive coronary artery disease, unfortunately patient had been planning to go to a trip to [place] shortly thereafter. ??As his symptoms were stable, the decision was made to medically manage his coronary artery disease so that he may go on this trip.?? C.??04/09/2015 coronary angiography again with PCI of OM 2 and ostial and proximal left circumflex arteries. D.??04/01/2016??Coronary angiogram was??demonstrated widely patent stents. E. 12/14/2020,??sx??worsening dyspnea on exertion,??abnormal nuclear stress test.??Subsequent coronaryangiogram 03/13/2021 demonstrated obstructive disease in the LAD and RCA, also with a CHARGING MANIPULATOR of OM2.?? F.??04/19/2021,??CABG:??DOUGLASS to LAD, reverse SVG to PDA, reverse SVG to OM 2. G.??06/24/21 Nuc.stress test did??not show any inferior defects though there was significant diaphragmatic attenuation affecting interpretation of the inferior wall. H.??Returned to organic lab worker 07/03/21 due to??noted reduced LVEF on post CABG echo, and mild basal anterior ischemia on MPI??and run of SVT. ??It showed no angiographic explanation seen for patient's echocardiogram findings.??PCI of OM 3 could be considered in the future if patient develops symptomatic angina unresponsive to medical therapy. ??Otherwise, PCI??not recommended??if he remains asymptomatic, as this would not be expected to improve global LV function, or reduce risk of mortality, PA, heart failure hospitalization.? 6.??Ischemic cardiomyopathy.??Carvedilol was stopped for??borderline bradycardia,??but restarted??due to the nonsustained VT.?Recent decline in LVEF??to 46%. 7.?He was found to have a pleural effusion for which he underwent thoracentesis 04/29/2021. 8.??Tachycardia vs??atrial fibrillation,??a??Holter monitor 05/07 to 05/09/2021 demonstrated 2 short episodes of atrial tachycardia vs??atrial fibrillation, one episode lasting 23 seconds, and another lasting 39 seconds. ??For follow-up, cardiac event monitor was placed for 30 days, this revealed no atrial fibrillation, however did show one 7 beat run of nonsustained VT at 197 bpm.?He did require repeat thoracentesis 05/14/2021 with removal of 1.3 L of fluid. 9.??Chronic anemia of unknown origin:?received blood infusions in the past, iron infusions. 10. Prostate surgery in 2016?? 11. Sleep apnea 2020? Given the drop in LV function and change in wall motion after CABG, as well as NSVT seen on cardiac event monitor and new basal anterior ischemia on nuclear stress test,??he proceeded with??repeat coronary and bypass angiogram and possible intervention, as noted above. No intervention. ?? Recently added amlodipine 10 mg QAM, decreased hydralazine to 50 mg TID, change Imdur 30 mg to taking at 4PM, decrease lisinopril to 10 mg QHS ( due to worsening creat.) ?? He did have a sleep study and was diagnosed with sleep apnea. ??He will be fitted for CPAP mask. Over the last few months he has brought in his home blood pressure readings which have been very different than the clinic readings. I asked him to come in on several occasions to check his home blood pressure monitor to the clinic blood pressure monitor. It appeared that it was very different. It sounded like he bought a new blood pressure cuff and it sounds like it is closer in range now to the clinic monitor. Current medication list 1. Amlodipine 10 mg 2. Carvedilol 6.25 twice daily 3. Catapres 0.1 mg twice daily 4. Hydralazine 50 mg in the a.m., 75 mg at 4 PM and (50 mg in the evening at 1 point he was on 100 mg three times daily and he felt extremely poorly where his thought he was going to pass out) since then the hydralazine has been decreased. 5. Isosorbide mononitrate 60 mg at 4:30 PM 6. Lisinopril 10 mg at bedtime Today, BP remain high mostly in the late afternoon. 170-206 systolic. ? PREVIOUS STUDIES (personally reviewed): BMP RESULTS:??07/03/2021 potassium 4.6, creatinine 1.18. ??He tells me he had an adobe ball mixer appointment and his creatinine was 1.3 Echocardiography: 05/2021 demonstrated??worsened inferior wall motion and decreased LVEF compared toprior pre-CABG TTE 12/2020.??LVEF 46%. 06/24/21: Nuc.stress test did??not show any inferior defects though there was significant diaphragmatic attenuation affecting interpretation of the inferior wall.? ASSESSMENT AND PLAN:?? 1 Ischemic CM, TTE 06/06/2021 LVEF 46%, down from TTE 01/02/21 LVEF 55-60%. Denies symptoms concerning for angina, however did have 7 beat run of NSVT noted on cardiac event monitor.?? GDMT: Carvedilol 6.25.mg bid, lisinopril 10mg daily - no angina ?? 2.??CAD with??04/09/2015 coronary angiography with PCI of OM 2 and ostial and proximal left circumflex arteries. Recent CABG 04/19/2021,??DOUGLASS to LAD, reverse SVG to PDA, reverse SVG to OM 2. - aspirin, BB, statin?? - recent coronary angiogram- no intervention. - denies angina ?? 3.??Post CABG atrial tachycardia vs atrial fibrillation on Holter monitor 05/07/21 (23s, 39s), no recurrence seen on subsequent 30d event monitor. ( 04/2021) ?? 4.??HTN:?? Recent poorly controlled - BP 162/68 -increase hydralazine to 75mg tid -seeing his adobe ball mixer 09/20 - may consider HTN clinic at [facility] ?? 7.??HL: 05/30/21: LDL 49, HDL 41 8.??DM: 04/29/21:??A1C 7.1 9.??CKD: creat. 1.27 10. Anemia, hgb stable in 06/30 11. Sleep apnea, new 2020??now started with a CPAP. ? Follow-up: 1. With Dr. Solis in October with echo ?? Thank you for the opportunity to be involved in this very pleasant patient's care please feel to contact me with any questions. Total time: 44 minutes was spent today reviewing the chart, visiting the patient, and documenting the visit. Giuliana Gomez APRN, PERSONNEL CLERK Nurse Practitioner [facility] CURRENT MEDICATIONS: Current Outpatient Medications Medication Sig Dispense Refill ??? acetaminophen (TYLENOL) 325 MG tablet Take 2 tablets (650 mg) by mouth every 4 hours as needed for mild pain 40 tablet 0 ??? amLODIPine (NORVASC) 10 MG tablet Take 1 tablet (10 mg) by mouth daily pm ??? aspirin (ASA) 325 MG tablet Take 325 mg by mouth daily ??? carvedilol (COREG) 6.25 MG tablet Take 1 tablet (6.25 mg) by mouth 2 times daily (with meals) Amand 8pm 180 tablet 1 ??? cloNIDine (CATAPRES) 0.1 MG tablet Take 1 tablet (0.1 mg) by mouth 2 times daily 180 tablet 0 ??? Continuous Blood Gluc Sensor (Hintsoft G6 SENSOR) MISC ??? Copper Gluconate (COPPER CAPS) 2 MG CAPS ??? cyanocobalamin (VITAMIN B-12) 1000 MCG tablet Take 1,000 mcg by mouth daily ??? ferrous sulfate 140 (45 Fe) MG TBCR CR tablet Take 1 tablet (140 mg) by mouth daily 30 tablet 1 ??? gabapentin (NEURONTIN) 300 MG capsule Take 1 capsule (300 mg) by mouth 2 times daily ??? glucagon 1 MG kit 1 mg once as needed for low blood sugar ??? HEMP OIL OR EXTRACT OR OTHER CBD CANNABINOID, NOT MEDICAL CANNABIS, Apply 1 Application topically 2 times daily as needed (Arthritis on right knee and wrist) Topical cream ??? hydrALAZINE (APRESOLINE) 50 MG tablet Take 1 tab (50mg) in morning, 1 and 1/2 tab (75mg) at 4pm and take 1 tab (50mg) in the evening. May take additional 1/2 tab (25 mg) as needed BP < 170 mmHg 325 tablet 1 ??? insulin lispro (HUMALOG) 100 UNIT/ML vial [...] as noted above. PHYSICAL EXAMINATION: Vitals: BP 162/68, HR 63 bpm, weight 220 pounds. Constitutional: Patient is pleasant, alert, cooperative, and in NAD. HEENT: NCAT. PERRLA. EOM's intact. Neck: no JVD Pulmonary: clear Cardiac: Regular rate and rhythm. Normal S1 and S2. ??No murmurs or rub. Abdomen: Soft, non-tender abdomen, no hepatosplenomegaly appreciated. [...] Coronary Graft; Surgeon: Mahendra Vega MD; Location: [facility] CARDIAC COMMUNITY HEALTH NURSE SUPERVISOR ??? CV CORONARY ANGIOGRAM N/A 03/13/2021 Procedure: Coronary Angiogram; Surgeon: Darwin Valero MD; Location: HEART CARDIAC COMMUNITY HEALTH NURSE SUPERVISOR ??? CV HEART CATHETERIZATION WITH POSSIBLE INTERVENTION N/A 07/03/2021 Procedure: Coronary Angiogram; Surgeon: Mahendra Vega MD; Location: [facility] CARDIAC CATHLAB ??? CV INSTANTANEOUS WAVE-FREE RATIO N/A 03/13/2021 Procedure: Instantaneous Wave-Free Ratio; Surgeon: Darwin Valero MD; Location: [facility] CARDIAC COMMUNITY HEALTH NURSE SUPERVISOR ??? CV LEFT HEART CATH N/A 07/03/2021 Procedure: Left Heart Cath; Surgeon: Mahendra Vega MD; Location: HEART CARDIAC COMMUNITY HEALTH NURSE SUPERVISOR ??? CV LEFT VENTRICULOGRAM N/A 07/03/2021 Procedure: Left Ventriculogram; Surgeon: Mahendra Vega MD; Location: HEART CARDIAC COMMUNITY HEALTH NURSE SUPERVISOR ??? HC LEFT HEART CATHETERIZATION 04/01/2016 mild [...] RESULTS: Lab Results Component Value Date WBC 6.4 [...] 01/02/2021 PLT 190 07/03/2021 PLT 202 01/02/2021 BMP RESULTS: Lab Results Component Value Date NA 140 08/05/2021 NA 142 01/02/2021 POTASSIUM 4.7 08/05/2021 POTASSIUM 4.8 01/02/2021 CHLORIDE 112 (H) 08/05/2021 CHLORIDE 112 (H) 01/02/2021 CO2 27 08/05/2021 CO2 26 01/02/2021 ANIONGAP 1 (L) 08/05/2021 ANIONGAP 4 01/02/2021 GLC 100 (H) 08/05/2021 GLC 115 (H) 01/02/2021 BUN 34 (H) 08/05/2021 BUN 40 (H) 01/02/2021 CR 1.27 (H) 08/05/2021 CR 1.56 (H) 01/02/2021 GFRESTIMATED 60 (L) 08/05/2021 GFRESTIMATED 44 (L) 01/02/2021 GFRESTBLACK 51 (L) 01/02/2021 RICHIE 9.1 08/05/2021 RICHIE 8.6 01/02/2021 A1C RESULTS: Lab Results Component Value Date A1C 7.1 (H) 04/29/2021 A1C 9.7 (A) 06/07/2014 INR RESULTS: Lab Results Component Value Date INR 1.07 07/03/2021 INR 1.31 (H) 04/19/2021 INR 1.03 04/27/2016 INR 1.08 03/31/2016 This note was completed in part using [employer] voice recognition software. Although reviewed after completion, some word and grammatical errors may occur. TS PHYSIOLOGIST documented in this encounter Plan of Treatment Upcoming Encounters Date Type Specialty Care Team Description 05/15/2022 Hospital Encounter Surgery Singh Torres MD [facility] [address] [place] [address] (Wo rk) 05/15/2022 Surgery Surgery Neo Torres MD BLEPHAROPLASTY BILATERAL [facility] [facility] PTOSIS REPAIR BILATERAL [address] [place] [address] [phone] (Wo rk) 06/25/2022 Ancillary Procedure Cardiology Kirk Silver MD [address] [place] [id number] (Wo rk) Scheduled Procedures Name Priority Associated [...] Diagnosis Essential hypertension Unspecified essential hypertension S/P coronary artery stent placement Postsurgical percutaneous transluminal c oronary angioplasty status S/P CABG (coronary artery bypass graft) 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 documented in this encounter Care Teams Product Safety And Standards Engineer Relationship Specialty Start Date End Date Anatoliy Jackson PCP - General 05/14/12 Heath More PCP - Internal Medicine INTERNAL MEDICINE - 01/06/14 MD Andreas ENDOCRINOLOGY, DIABETES [facility] & METABOLISM OF [facility] [address] [place] [address] Peter Gipson PCP - Urology 04/02/15 MD Jordan [facility] UROLOGY [address] [place] [address] [address] [place] [address] Peter Mcmullen Assigned Musculoskeletal 06/01/20 MD Mahendra Provider [address] [place], [place] [address] Giuliana Gomez Assigned Heart and 06/30/21 A, HEELER MACHINE PERSONNEL CLERK Vascular Provider [address] [place] [address] Giuliana Gomze Nurse Practitioner Cardiovascular Disease 2 A, HEELER MACHINE PERSONNEL CLERK [address] [place] [address] Fidencio Solis MD MD Cardiovascular Disease 08/21/[address] [place] [address] documented as of this encounter
--- OUTSIDE RECORDS SUMMARY | 2022-05-02 12:24 | XMS_ITS | Encounter Summary ---
:1950 Author Organization [place] Address [address] [place] [address] Care Team Providers Name Role Phone Anatoliy Jackson MD Primary Care Provider Heath More MD Unavailable Peter Gipson MD Unavailable Peter Mcmullen MD Unavailable Giuliana Gomez APRN HAZARDOUS MATERIAL SPECIALIST Unavailable [phone] Giuliana Gomez APRN HAZARDOUS MATERIAL SPECIALIST Unavailable [phone] Fidencio Solis MD Unavailable Reason for Visit Reason Comments Blood Pressure Check blood pressure check Encounter Details Date Type Department Care Team Description 08/19/2021 Documentation Only [facility] Blood Pressure Check [facility] Coni lauren CMA (blood pr essure check Heart ) [facility] [place] [address] Social History Tobacco Use Types [...] been in contact with No / Unsure 08/21/2021 9:56 AM PRE K SPECIAL EDUCATION TEACHER someone who was confirmed or 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 documented as of this encounter Progress Notes Coni Liu CMA - 08/19/2021 3:34 PM CST ALLIED HEALTH BLOOD PRESSURE CHECK Last office visit: 08/05/21 ?? Previous blood pressure: 130/67 mm Hg Previous heart rate: 55 bpm ? Time of visit: 3:25 pm ?? Morning medications were taken at: Yes, 11:45 am Today's blood pressure: 140/60 mm Hg (R arm) Today's heart rate: 61 bpm ?? Home monitor blood pressure: 155/74 mmHg @ 11:45am Home monitor heart rate: 63 bpm 2:25 pm 145/65 P: 58 Left arm for both readings at home. ?? Additional Comments: CPAP mask a bit to small, ordered a new size, starting Imdur 60 mg pt hasn't noticed much of a difference. Pt's machine @ 3:32 pm B/P: 156/67 P: 67 ? Results routed to: Giuliana Gomez Sara Fairchild, RN ? Ordering Provider: Giuliana Gomez In clinic Provider: Dr. Kevin K SPECIAL EDUCATION TEACHER Giuliana Gomez APRN CNP - 08/19/2021 3:34 PM CST BP reviewed. Going forward we will use the clinic BP reading. Stable for now. Giuliana Gomez APRN, HAZARDOUS MATERIAL SPECIALIST K SPECIAL EDUCATION TEACHER Elizabeth Fernandez RN - 08/19/2021 3:34 PM CST Pt is having another in clinic BP check today per Fadi Gomez CNP's recommendations. Will await documentation on that for Fadi Gomez CNP to review. Future Appointments Date Time Provider Department Center 09/10/2021 1:45 PM RU LAB [facility] 09/10/2021 2:30 PM Giuliana Gomez APRN CNP [facility] 10/10/2021 9:45 AM Fidencio Solis MD [facility] PSA CLIN [place] Tripath[place], [place] [facility] Clinic Stunt Person 08/21/21, 10:24 AM Giuliana Hills APRN CNP - 08/19/2021 3:34 PM CST Reviewed clinic BP's. No changes. As I mentioned, we will only use clinic BP readings. You can instruct him to stop with his own BP readings, does not seen to be accurate. Giuliana Gomez APRN, CNP Elizabeth Alford RN - 08/19/2021 3:34 PM CST Called and left VM instructions w/ Nikita that Fadi Gomez CNP reviewed both in clinic BP checks and does not feel he needs to check home BP's further as appears there is a discrepancy and home BP cuff does not appear accurate. No medication changes at this time. Continue with follow up plan. Requested call back if he has further questions or concerns. Future Appointments Date Time Provider Department Center 09/10/2021 1:45 PM RU LAB [facility] 09/10/2021 2:30 PM Giuliana Gomez APRN CNP [facility] 10/10/2021 9:45 AM Fidencio Solis MD [facility] PSA CLIN [place] Tripath[place], [place] C.O.R[facility]E. Clinic Stunt Person 08/21/21, 4:08 PM K SPECIAL EDUCATION TEACHER documented in this encounter Plan of Treatment Upcoming Encounters Date Type Specialty Care Team Description 05/15/2022 Hospital Encounter Surgery Singh Torres MD [facility] [address] [place] [address] (Wo rk) 05/15/2022 Surgery Surgery Neo Torres MD BLEPHAROPLASTY BILATERAL [place] [facility]S, INTERNAL & [facility] PTOSIS REPAIR BILATERAL [address] [place] [id number] (Wo rk) 06/25/2022 Ancillary Procedure Cardiology Kirk Silver MD [address] [place] [address] [...] on filedocumented in this encounter Care Teams Screen Door Maker Relationship Specialty Start Date End Date Anatoliy Jackson, PCP - General 05/14/12 Heath More PCP - Internal Medicine INTERNAL MEDICINE - 01/06/14 MD Andreas ENDOCRINOLOGY, DIABETES ENDO[facility] CLINIC & METABOLISM [facility] [address] [place] [id number] Peter Gipson PCP - Urology 04/02/[address] [facility] UROLOGY [address] [place] [address] Peter Mcmullen Assigned Musculoskeletal 06/01/20 MD Mahendra Provider [address] [place], [place] [id number] Giuliana Gomez Assigned Heart and 06/30/21 A, ELECTRIC DOLLY OPERATOR HAZARDOUS MATERIAL SPECIALIST Vascular Provider [address] [place] [address] Giuliana Gomez Nurse Practitioner Cardiovascular Disease 2 A, ELECTRIC DOLLY OPERATOR HAZARDOUS MATERIAL SPECIALIST [address] [place] [id number] Fidencio Solis MD MD Cardiovascular Disease 08/21/21 [address] [place] [address] documented as of this encounter
--- OUTSIDE RECORDS SUMMARY | 2022-05-02 12:24 | XMS_ITS | Encounter Summary ---
:1950 Author Organization [place] Address [address] [facility] [place] [address] Care Team Providers Name Role Phone Anatoliy Jackson MD Primary Care Provider Heath More MD Unavailable Peter Gipson MD Unavailable Peter Mcmullen MD Unavailable Giuliana Gomez APRN CLINICAL SPECIALIST VASCULAR Unavailable Reason for Visit Reason Comments CORE pt call w/ update; started o n CPAP Encounter Details Date Type Department Care Team Description 08/13/2021 Care Coordination [facility] (pt call w/ [facility] Elizabeth Wen RN update; erick on [facility] e CPAP) [id number] [address] Social History Tobacco Use Types Packs/Day [...] with No / Unsure 08/05/2021 11:47 AM DIETITIAN HELPER someone who was confirmed or 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 documented as of this encounter Progress Notes Elizabeth Fernandez RN - 08/13/2021 12:48 PM CST [facility] Received VM on CORE RN line from Nikita who reports he has been started on CPAP machine now. He statesFadi Gomez CNP had wanted to start a 24 hr BP cuff when he saw her on 08/05/21. He was also wondering about being tested for familiar hyperaldosterone or CONNS syndrome wondering if that could be contributing to his high BP's. Chart Reviewed: -- 08/05/21: OV w/ Fadi Gomez CNP in CORE: Recommendations: 1. Start CPAP as directed. 2. Once on CPAP for a week, my suggestion was a 24 hour BP monitor. It appears it is not possible toorder one due to his diagnosis. So my suggestion is to have his BP taken at our clinic at 4 pm on a couple occasions. ( times when BP's are high at home) Also, would like the nurse to show him how to take a BP with his machine.) Future Appointments Date Time Provider Department Center 09/10/2021 1:45 PM [facility] 09/10/2021 2:30 PM Giuliana Gomez APRN CNP [facility] 10/10/2021 9:45 AM Fidencio Solis MD [facility] Elizabeth Fernandez RN BSN [facility] [place], [place] [facility] Sugarcane Research Technician 08/13/21, 12:54 PM ITIAN HELPER Giuliana Gomez APRN CNP - 08/13/2021 12:48 PM CST I'd like to move forward with a 24 hour BP monitoring with a diagnosis of Masked HTN and see if it's covered. Please order it. Agree with seeing PCP for further testing. Thanks Giuliana Gomez APRN, CNP Elizabeth Alford RN - 08/13/2021 12:48 PM CST Talked to Fadi Gomez CNP face to face and reviewed that because Nikita has a previously documentedhx of hypertension, insurance will most likely not cover the 24 hr BP monitor. Per Fadi Gomez CNP, have pt schedule in clinic BP checks x2 instead of ordering the 24 hr BP. Request he bring in homeBP machine as well so staff can assist him in accurately checking it. Called Nikita and left VM requesting call back to discuss plan. Elizabeth Fernandez SHELF DRIER OPERATOR [facility] [place], [place] [facility] Sugarcane Research Technician 08/13/21, 4:41 PM Elizabeth Alford RN - 08/13/2021 12:48 PM CST Called and spoke w/ Nikita and explained his insurance will likely not cover 24 hr BP monitor cuff since he already has a documented hx of HTN. Fadi Gomez CNP recommended setting up afternoon BP check. Requested he bring in his own home cuff as well to compare and be sure he is taking it accurately/correctly. His grandfather had experimental surgery at the in the 50's for HTN where they removed his adrenalgland. He does report he has an appt w/ Dr. Felder his mortar worker to discuss further 1st or 2nd week in Sep at the [facility]. He see's Dr. Felder for his DM. He reports his evening BP's have been quite high. He denies sx during these times. He will fax copy of his documented home BP's for review again. Future Appointments Date Time Provider Department Center 08/19/2021 3:15 PM RU [facility] 09/10/2021 1:45 PM RU LAB [facility] 09/10/2021 2:30 PM Giuliana Gomez APRN CNP [facility] 10/10/2021 9:45 AM Fidencio Solis MD [facility] Elizabeth Fernandez RN BSN [place], [place] [facility] Sugarcane Research Technician 08/15/21, 9:22 AM ITIAN HELPER Elizabeth Fernandez RN - 08/13/2021 12:48 PM CST Images from the original note were not included. Incoming fax received from Nikita w/ his recent BP's and med list. Giuliana Hills APRN CNP - 08/13/2021 12:48 PM CST I' d like him to set up nurse visits: 1. One visit am ( at lest 2 hours after meds) 2. Second visit in the afternoon. Bp's in the past have been good at the clinic. I see that some of his BP's were over a shirt. I'd like the BP to be taken here. Please ask him if he's open to this. Thanks Giuliana Gomez APRN, CNP Elizabeth Kern RN - 08/13/2021 12:48 PM CST Images from the original note were not included. [facility] C.O[facility]ER[facility] Nikita is scheduled for Nurse Only BP checks per Fadi Zendejas CNP orders. He is aware of needing totake his medications at 0800 on 08/21/21. Elizabeth Theodore RN Sugarcane Research Technician [facility] Nurse Line: [phone] Personal Line: [phone] 08/16/21 10:40 AM ITIAN HELPER documented in this encounter Plan of Treatment Upcoming Encounters Date Type Specialty Care Team Description 05/15/2022 Hospital Encounter Surgery Singh Torres MD [facility] [address] [place] [address] (Wo rk) 05/15/2022 Surgery Surgery Neo Torres MD BLEPHAROPLASTY BILATERAL [facility] PTOSIS REPAIR BILATERAL [address] [place] [address] (Wo rk) 06/25/2022 Ancillary Procedure Cardiology Kirk Silver MD [address] [place] [id number] (Wo rk) Scheduled Procedures Name Priority Associated [...] on filedocumented in this encounter Care Teams Aircraft Designer Relationship Specialty Start Date End Date Anatoliy Jackson MD PCP - General 05/14/12 Heath More PCP - Internal Medicine INTERNAL MEDICINE - 01/06/14 MD Andreas ENDOCRINOLOGY, [facility] [address] [place] [phone] Peter Gipson PCP - Urology 04/02/15 MD Jordan [facility] [address] [facility] [address] [place] [address] Peter Mcmullen Assigned Musculoskeletal 06/01/20 MD Mahendra Provider [address] [place], [place] [address] Giuliana Gomez Assigned Heart and 06/30/21 A, BLEND PLANT OPERATOR CLINICAL SPECIALIST VASCULAR Vascular Provider [address] [place] [id number] documented as of this encounter
--- OUTSIDE RECORDS SUMMARY | 2022-05-02 12:24 | XMS_ITS | Encounter Summary ---
:1950 Author Organization [place] Address [address] [facility] [place] [address] Care Team Providers Name Role Phone Anatoliy Jackson MD Primary Care Provider Heath More MD Unavailable Peter Gipson MD Unavailable Peter Mcmullen MD Unavailable Giuliana Gomez APRN CAT TENDER Unavailable [phone] Giuliana Gomez APRN CAT TENDER Unavailable Fidencio Solis MD Unavailable Reason for Visit Reason Comments CORE Blood pressure med changes Encounter Details Date Type Department Care Team Description 09/03/2021 Documentation Only [facility] JOAQUÍN Gomez ([facility] [place] Hernandez APRN pressure med [address] [facility] CAT TENDER changes) [facility] [address] [facility] [address] [address] [phone] [place] [id number] Social History Tobacco Use Types Packs/Day Years [...] with No / Unsure 08/21/2021 9:56 AM CRAFT SUPERINTENDENT someone who was confirmed or 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 documented as of this encounter Progress Notes Giuliana Gomez APRN CNP - 09/03/2021 7:19 AM CST Reviewed home BP and note written by Nikita. More elevated BP's in the evening. 168/71 range. Did not tolerate higher doses of hydralazine. Suggest to change amlodipine to evening time. We'll reassess itat the upcoming appt. If BP remain elevated, we may consider increasing Imdur, or changing carvedilol to labetalol. Giuliana Gomez APRN, CNP T SUPERINTENDENT Giuliana Gomez APRN CNP - 09/03/2021 7:19 AM CST Instruct him to increase the noon hydralazine to 75mg. Giuliana Gomez APRN, CNP T SUPERINTENDENT Allison Jensen RN - 09/03/2021 7:19 AM CST Called Nikita with recommendations per Fadi: Suggest to change amlodipine to evening time. We'll reassess it at the upcoming appt. Instruct him to increase the noon hydralazine to 75mg. No answer. Left him a voice mail asking [facility] and I will also send via [employer] as he is active on it. Med list update and prescription for hydralazine 25 mg tablets sent to [facility] Future Appointments Date Time Provider Department Center 09/10/2021 1:45 PM RU LAB [facility] 09/10/2021 2:30 PM Giuliana Gomez APRN CNP [facility] 10/10/2021 9:45 AM Fidencio Solis MD [facility] Allison Jensen RN 1:30 PM 09/03/21 T SUPERINTENDENT Giuliana Gomez APRN CNP - 09/03/2021 7:19 AM CST Yes, thank you. Giuliana Gomez APRN, CNP T SUPERINTENDENT Allison Jensen RN - 09/03/2021 7:19 AM CST Nikita left a voice mail yesterday and is unable to open his [employer] Message. Called Nikita back. He states the [employer] message would not download.. Confirmed with him that his blood pressures continue to run higher in the evening. We did discuss med changes recommended by Fadi and Dr Solis: 1. Please take your amlodipine in the evening. You can start tomorrow 09/04 (Pt wants to 2. Continue taking hydralazine 50 mg in the morning. Second dose, please INCREASE to 75 MG. He will take one tablet in the morning; one and half at 1630 and one tablet at [phone] Nikita prefers to start med changes tomorrow So I don't mess it up. He takes his second dose of Hydralazine at 1630. He takes the rest of his evening medications around 2029 with exception of third hydralazine dose that he takes around 3833-1315. He will continue to monitor his blood pressure. Will follow up with him on Thursday per his request. Med list is update to reflect the above changes. Future Appointments Date Time Provider Department Center 09/10/2021 1:45 PM RU [facility] 09/10/2021 2:30 PM Giuliana Gomez APRN CNP [facility] 10/10/2021 9:45 AM Fidencio Solis MD [facility] Update to Fadi about when he will start changes. Allison Jensen, RN 2:12 PM 09/04/21 T SUPERINTENDENT documented in this encounter Plan of Treatment Upcoming Encounters Date Type Specialty Care Team Description 05/15/2022 Hospital Encounter Surgery Singh Torres MD [facility] [address] [place] [address] (Wo rk) 05/15/2022 Surgery Surgery Neo Torres MD BLEPHAROPLASTY BILATERAL [facility] PTOSIS REPAIR BILATERAL [address] [place] [address] (Wo rk) 06/25/2022 Ancillary Procedure Cardiology Kirk Silver MD [address] [place] [address] (Wo rk) Scheduled Procedures Name Priority Associated [...] ptosis documented in this encounter Care Teams Channel Lip Stiffener Insoles Relationship Specialty Start Date End Date Anatoliy Jackson, PCP - General 05/14/12 Heath More PCP - Internal Medicine INTERNAL MEDICINE - 01/06/14 MD Andreas ENDOCRINOLOGY, [facility] [address] [place] [phone] Peter Gipson PCP - Urology 04/02/15 MD Jordan [facility] [address] [facility] [address] [place], [place] [id number] Peter Mcmullen Assigned Musculoskeletal 06/01/20 MD Mahendra Provider [address] [place], [place] [id number] Giuliana Gomez Assigned Heart and 06/30/21 ACALLIE CAT TENDER Vascular Provider [address] [place] [id number] Giuliana Gomez Nurse Practitioner Cardiovascular Disease 2 A, PROFESSOR OF PHYSICAL EDUCATION CAT TENDER [address] [place] [address] Fidencio Solis MD MD Cardiovascular Disease 08/21/[address], [facility] [address] [place] [address] documented as of this encounter
--- OUTSIDE RECORDS SUMMARY | 2022-05-02 12:24 | XMS_ITS | Encounter Summary ---
:1950 Author Organization [place] Address [address] [facility] [place] [address] Care Team Providers Name Role Phone Anatoliy Jackson MD Primary Care Provider Heath More MD Unavailable Peter Gipson MD Unavailable Peter Mcmullen MD Unavailable Giuliana Gomez APRN, CNP Unavailable Reason for Visit Reason Comments CORE FU After Angiogram Encounter Details Date Type Department Care Team Description 07/17/2021 Office Visit [facility] Giuliana Gomez S/P CABG (coronary artery bypass graft) (Primary Dx); Heart Clinic Anu Hernandez APRN CNP Essential hypertension [address] [place] [id number] [place] [id number] Social History Tobacco Use Types Packs/Day Years [...] with No / Unsure 08/05/2021 11:47 AM RESERVATION AGENT someone who was confirmed or 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 documented as of this encounter Last Filed Vital Signs Vital Sign Reading Time Taken Comments Blood Pressure 131/61 07/17/2021 10:05 AM RESERVATION AGENT Pulse 59 07/17/2021 10:05 AM RESERVATION AGENT Temperature - - Respiratory Rate - - Oxygen Saturation 98% 07/17/2021 10:05 AM room air RESERVATION AGENT Inhaled Oxygen Concentration - - Weight 98.6 kg (217 lb 4.8 07/17/2021 10:05 AM home rosalee ght 210# oz) RESERVATION AGENT Height 180.3 cm (5' 11) 07/17/2021 10:05 AM RESERVATION AGENT Body Mass Index 30.31 07/17/2021 10:05 AM RESERVATION AGENT documented in this encounter Progress Notes Giuliana Gomez, CALLIE ADVERTISING STATISTICAL CLERK - 07/17/2021 10:00 AM CST CARDIOLOGY CLINIC / C.O.R.E. CLINIC VISIT (Heart Failure Specialty) DOS: 07.17.21 Nikita Anderson : 1950 Primary Seismograph Observer: Dr. Solis ( He was followed previously with Dr. Aguiar) ?? REASON FOR VISIT: CAD, post CABG/ established CORE patient/ post angiogram ?? HISTORY OF PRESENT ILLNESS:?? Mr. Anderson is a 70-year-old male with a past medical history significant for: 1) Hypertension 2) Hyperlipidemia 3) Diabetes 4) Chronic kidney disease 5) Coronary artery disease A. Coronary angiography/heart catheterization 07/2013 demonstrated nonobstructive coronary artery disease. ??Subsequently he had experienced dyspnea on exertion and a nuclear stress test 12/2014 was also abnormal. B. 2014 Coronary angiography demonstrated obstructive coronary artery disease, unfortunately patient had been planning to go to a trip to [place] shortly thereafter. ??As his symptoms were stable, the decision was made to medically manage his coronary artery disease so that he may go on this trip. ?? C. 04/09/2015 coronary angiography again with PCI of OM 2 and ostial and proximal left circumflex arteries. D. 04/01/2016 Coronary angiogram was demonstrated widely patent stents. E. 12/14/2020, sx worsening dyspnea on exertion, abnormal nuclear stress test. Subsequent coronary angiogram 03/13/2021 demonstrated obstructive disease in the LAD and RCA, also with a SLIP COVER ESTIMATOR of OM2. F. 04/19/2021, CABG: DOUGLASS to LAD, reverse SVG to PDA, reverse SVG to OM 2. G. 06/24/21 Nuc.stress test did not show any inferior defects though there was significant diaphragmatic attenuation affecting interpretation of the inferior wall. H. Returned to [facility] due to noted reduced LVEF on post CABG echo, and mild basal anterior ischemia on MPI and run of SVT. It showed no angiographic explanation seen for patient's echocardiogram findings. PCI of OM 3 could be considered in the future if patient develops symptomatic angina unresponsive to medical therapy. Otherwise, PCI not recommended if he remains asymptomatic, as this would not be expected to improve global LV function, or reduce risk of mortality, CO, heart failure hospitalization. 6. Ischemic cardiomyopathy. Carvedilol for borderline bradycardia, but restarted due to the nonsustained VT. ??Recent decline inLVEF to 46% 7. ??Borderline bradycardia, carvedilol was discontinued. ??He was found to have a pleural effusion for which he underwent thoracentesis 04/29/2021. 8. Tachycardia vs??atrial fibrillation, a Holter monitor 05/07 to 05/09/2021 that demonstrated 2 shortepisodes of atrial tachycardia vs??atrial fibrillation, one episode lasting 23 seconds, and another lasting 39 seconds. ??For follow-up, cardiac event monitor was placed for 30 days, this revealed no atrial fibrillation, however did show one 7 beat run of nonsustained VT at 197 bpm. ??He did require repeat thoracentesis 05/14/2021 with removal of 1.3 L of fluid. 9. Chronic anemia of unknown origin: received blood infusions in the past, iron infusions. 10. Prostate surgery in 2015?? 11. Sleep apnea 2020 Given the drop in LV function and change in wall motion after CABG, as well as NSVT seen on cardiac event monitor and new basal anterior ischemia on nuclear stress test, he proceeded with repeat coronary and bypass angiogram and possible intervention. ?? He returns in follow up to discuss the results. No intervention done at the [facility]. He denies chest pain, chest pressure, neck or arm pain. He denies shortness of breath, orthopnea, PND, syncope or near syncope. He complains of dizziness and lightheadedness on and off since starting hydralazine. He states he appears to almost pass out at time. BP's at the time of his dizziness was 97/50. [place] and he felt extremely poorly and thought he was going to pass out. His episodes have occurred since he started hydralazine. Blood pressures at home have been 97/50- 210/90. He did have a sleep study and was diagnosed with sleep apnea. He has an option to try a CPAP or dental device. PREVIOUS STUDIES (personally reviewed): BMP RESULTS: 07/03/2021 potassium 4.6, creatinine 1.18. He tells me he had an deicer repairer appointment and his creatinine was 1.3 Echocardiography: 05/2021 demonstrated worsened inferior wall motion and decreased LVEF compared to prior pre-CABG TTE12/2020. LVEF 46%. 06/24/21 Nuc.stress test did not show any inferior defects though there was significant diaphragmatic attenuation affecting interpretation of the inferior wall. ASSESSMENT AND PLAN: 1 Ischemic CM, TTE 06/06/2021 LVEF 46%, down from TTE 01/02/21 LVEF 55-60%. Denies symptoms concerning for angina, however did have 7 beat run of NSVT noted on cardiac event monitor.?? GDMT: Carvedilol 6.25.mg bid, lisinopril 10mg bid - no angina ?? 2.??CAD with 04/09/2015 coronary angiography with PCI of OM 2 and ostial and proximal left circumflexarteries. Recent CABG 04/19/2021,??DOUGLASS to LAD, reverse SVG to PDA, reverse SVG to OM 2. - aspirin, BB, statin - recent coronary angiogram- no intervention. 3.??Post CABG atrial tachycardia vs atrial fibrillation on Holter monitor 05/07/21 (23s, 39s), no recurrence seen on subsequent 30d event monitor 4. HTN: poorly controlled with sx - BP 97/50- 210/100 - add amlodipine 5mg am - decrease hydralazine to 50mg tid ( due to sx of dizziness) - change Imdur 30mg to 4 pm - continue carvedilol 6.25mg bid am, 8 pm - decrease lisinopril to 10mg hs ( due to worsening creat.) 7. HL: 05/30/21: LDL 49, HDL 41 8. DM: A1C 7.1 04/29/21 9. CKD: creat. 1.33 10. Anemia, check hgb 06/30 11. Sleep apnea, new 2020 ? Recommendations: 1. Take blood pressure twice a day. Call if dizziness continues. 2. Medication changes as above. 3. Consider Entresto 4. Asked Nikita to call the CORE RN with BP's next week. 5. Need BP machine check ?? Follow-up: with bmp Thank you for the opportunity to be involved in this very pleasant patient's care please feel to contact me with any questions. Total time: 168 minutes was spent today reviewing the chart, visiting the patient, and documenting the visit. Giuliana Gomez APRN, ADVERTISING STATISTICAL CLERK Nurse Practitioner [facility] CURRENT MEDICATIONS: Current Outpatient Medications Medication Sig Dispense Refill ??? acetaminophen (TYLENOL) 325 MG tablet Take 2 tablets (650 mg) by mouth every 4 hours as needed for mild pain 40 tablet 0 ??? amLODIPine (NORVASC) 5 MG tablet Take 1 tablet (5 mg) by mouth daily am 90 tablet 3 ??? aspirin (ASA) 325 MG tablet Take [...] Gluc Sensor (DEXCOM G6 SENSOR) MISC ??? cyanocobalamin (VITAMIN B-12) 1000 MCG tablet [...] (50 mg) by mouth 3 times daily 0 ??? insulin lispro (HUMALOG) 100 UNIT/ML [...] give 10 units. ??? isosorbide mononitrate (IMDUR) 30 MG 24 hr tablet Take 1 tablet (30 mg) by mouth daily 4:40 pm 90 tablet 0 ??? lisinopril (ZESTRIL) 10 MG tablet Take [...] as noted above. PHYSICAL EXAMINATION: Vitals: BP 131/61, HR 59 bpm Constitutional: Patient is pleasant, alert, cooperative, and in NAD. HEENT: NCAT. PERRLA. EOM's intact. Neck: no JVD Pulmonary: clear Cardiac: Regular rate and rhythm. Normal S1 and S2. ??No murmurs Abdomen: Soft, non-tender abdomen, no hepatosplenomegaly appreciated. [...] Coronary Graft; Surgeon: Mahendra Vega MD; Location: [facility] CARDIAC RESORT HOST ??? CV CORONARY ANGIOGRAM N/A 03/13/2021 Procedure: Coronary Angiogram; Surgeon: Darwin Valero MD; Location: [facility] CARDIAC RESORT HOST ??? CV HEART CATHETERIZATION WITH POSSIBLE INTERVENTION N/A 07/03/2021 Procedure: Coronary Angiogram; Surgeon: Mahendra Vega MD; Location: [facility] CARDIAC CATHLAB ??? CV INSTANTANEOUS WAVE-FREE RATIO N/A 03/13/2021 Procedure: Instantaneous Wave-Free Ratio; Surgeon: Darwin Valero MD; Location: HEART CARDIAC RESORT HOST ??? CV LEFT HEART CATH N/A 07/03/2021 Procedure: Left Heart Cath; Surgeon: Mahendra Vega MD; Location: HEART CARDIAC RESORT HOST ??? CV LEFT VENTRICULOGRAM N/A 07/03/2021 Procedure: Left Ventriculogram; Surgeon: Mahendra Vega MD; Location: HEART CARDIAC RESORT HOST ??? HC LEFT HEART CATHETERIZATION 04/01/2016 mild [...] RESULTS: Lab Results Component Value Date NA 142 07/03/2021 NA 142 01/02/2021 POTASSIUM 4.6 07/03/2021 POTASSIUM 4.8 01/02/2021 CHLORIDE 110 (H) 07/03/2021 CHLORIDE 112 (H) 01/02/2021 CO2 27 07/03/2021 CO2 26 01/02/2021 ANIONGAP 5 07/03/2021 ANIONGAP 4 01/02/2021 GLC 157 (H) 07/03/2021 GLC 115 (H) 01/02/2021 BUN 24 07/03/2021 BUN 40 (H) 01/02/2021 CR 1.18 07/03/2021 CR 1.56 (H) 01/02/2021 GFRESTIMATED 62 07/03/2021 GFRESTIMATED 44 (L) 01/02/2021 GFRESTBLACK 51 (L) 01/02/2021 RICHIE 8.7 07/03/2021 RICHIE 8.6 01/02/2021 A1C RESULTS: Lab Results Component Value Date A1C 7.1 (H) 04/29/2021 A1C 9.7 (A) 06/07/2014 INR RESULTS: Lab Results Component Value Date INR 1.07 07/03/2021 INR 1.31 (H) 04/19/2021 INR 1.03 04/27/2016 INR 1.08 03/31/2016 This note was completed in part using [employer] voice recognition software. Although reviewed after completion, some word and grammatical errors may occur. RVATION AGENT documented in this encounter Plan of Treatment Upcoming Encounters Date Type Specialty Care Team Description 05/15/2022 Hospital Encounter Surgery Singh Torres MD [facility] [address] [place] [address] (Wo rk) 05/15/2022 Surgery Surgery Neo Torres MD BLEPHAROPLASTY BILATERAL [place] [facility] PTOSIS REPAIR BILATERAL [address] [place] [id number] (Wo rk) 06/25/2022 Ancillary Procedure Cardiology Kirk Silver MD [address] [place] [id number] (Wo rk) Scheduled Procedures Name Priority Associated [...] Diagnosis S/P CABG (coronary artery bypass graft) - Primary Postsurgical aortocoronary bypass status Essential hypertension Unspecified essential hypertension 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 documented in this encounter Care Teams Teacher Lip Reading Relationship Specialty Start Date End Date Anatoliy Jackson MD PCP - General 05/14/12 Haeth More PCP - Internal Medicine INTERNAL MEDICINE - 01/06/14 MD Andreas ENDOCRINOLOG[facility], [facility] [address] [place] [phone] Peter Gipson PCP - Urology 04/02/15 MD Jordan [facility] [address] [facility] [address] [place] [address] Peter Mcmullen Assigned Musculoskeletal 06/01/20 MD Mahendra Provider [address] [place], [place] [address] Giuliana Gomez Assigned Heart and 06/30/21 A, AIRPORT CONTROL OPERATOR ADVERTISING STATISTICAL CLERK Vascular Provider [address] [place] [address] documented as of this encounter
--- OUTSIDE RECORDS SUMMARY | 2022-05-02 12:24 | XMS_ITS | Encounter Summary ---
:1950 Author Organization [place] Address [address] [facility] [place] [address] Care Team Providers Name Role Phone Anatoliy Jackson MD Primary Care Provider Heath More MD Unavailable Peter Gipson MD Unavailable Peter Mcmullen MD Unavailable Giuliana Gomez APRN, CNP Unavailable [phone] Reason for Referral Specialty Diagnoses / Procedures Referred By Contact Refer red To Contact [facility] [address] [place] [address] Referral ID Status Reason Start Date Expiration Date Visits Requ ested Visits Authorized N HOUSE MANAGER Encounter Details Date Type Department Care Team Description 07/24/[address] [facility] ([facility] Heart LETICIA Wen Chron ic renal insufficiency, stage 3 (moderate) (H) [facility] [id number] [place] [address] [address] [place] [address] Social History Tobacco Use Types [...] with No / Unsure 07/22/2021 9:57 AM GREEN HOUSE MANAGER someone who was confirmed or 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 documented as of this encounter Progress Notes Elizabeth Fernandez RN - 07/24/2021 12:25 PM CST [facility] - C.O.R.E[facility] Clinic Orders placed for BMP and CORE SERAFIN return per Fadi Gomez CNP. appts already scheduled. Future Appointments Date Time Provider Department Center 08/05/2021 11:45 AM RU LAB [facility] 08/05/2021 12:30 PM Giuliana Gomez APRN CNP [facility] 09/10/2021 1:45 PM RU LAB [facility] 09/10/2021 2:30 PM Giuliana Gomez APRN CNP [facility] 10/10/2021 9:45 AM Fidencio Solis MD [facility] [place] [facility] Pearl Peller 07/24/21, 12:30 PM N HOUSE MANAGER documented in this encounter Plan of Treatment Upcoming Encounters Date Type Specialty Care Team Description 05/15/2022 Hospital Encounter Surgery Singh Torres MD [facility] [address] [place] [id number] (Wo rk) 05/15/2022 Surgery Surgery Neo Torres MD BLEPHAROPLASTY BILATERAL [place] [facility] PTOSIS REPAIR BILATERAL [address] [place] [address] (Wo rk) 06/25/2022 Ancillary Procedure Cardiology Kirk Silver MD [address] [place] [id number] (Wo rk) Scheduled Procedures Name Priority Associated [...] Follow-Up with Referral Routine: Next Essential Expected: CORE Clinic available opening hypertension 08/05/2021 Chronic renal (Approximate), insufficiency, stage Expires : 3 (moderate) (H) 07/24/2022 documented as of this encounter Results (ABNORMAL) Basic metabolic panel (08/05/2021 11:53 AM GREEN HOUSE MANAGER) [facility] Method Time Signature Sodium 140 133 - 144 08/05/2021 LABORATORY mmol/L 12:26 PM GREEN HOUSE MANAGER Potassium 4.7 3.4 - 5.3 08/05/2021 LABORATORY mmol/L 12:26 PM GREEN HOUSE MANAGER Chloride 112 (H) 94 - 109 08/05/2021 LABORATORY mmol/L 12:26 PM GREEN HOUSE MANAGER Carbon Dioxide 27 20 - 32 08/05/2021 LABORATORY (CO2) mmol/L 12:26 PM GREEN HOUSE MANAGER Anion Gap 1 (L) 3 - 14 08/05/2021 LABORATORY mmol/L 12:26 PM GREEN HOUSE MANAGER Urea Nitrogen 34 (H) 7 - 30 08/05/2021 LABORATORY mg/dL 12:26 PM GREEN HOUSE MANAGER Creatinine 1.27 (H) 0.66 - 08/05/2021 RH LABORATORY 1.25 mg/dL 12:26 PM GREEN HOUSE MANAGER Calcium 9.1 8.5 - 10.1 08/05/2021 LABORATORY mg/dL 12:26 PM GREEN HOUSE MANAGER Glucose 100 (H) 70 - 99 08/05/2021 LABORATORY mg/dL 12:26 PM GREEN HOUSE MANAGER GFR Estimate 60 (L) >60 08/05/2021 LABORATORY mL/min/1.7 12:26 PM GREEN HOUSE MANAGER 3m2 Comment: Effective July 30, 2021 eGF Rcr in adults is calculated using the 2020 CKD-EPI creatinine equation which includ es age and gender (Prateek et al., NEJM, DOI: 10.1056/ASBPdf8389801) Specimen Anatomical Collection Method / Collection Time Recei shyla Time (Source) Location / Volume Laterality Blood STRUCTURE OF RIGHT Venipuncture / 08/05/2021 11:53 UPPER LIMB / Unknown AM GREEN HOUSE MANAGER 11:53 AM GREEN HOUSE MANAGER Unknown Giuliana A Mannchen DATA CONVERSION ANALYST DIRECTOR [facility] - BLOOD ORDERABLES Performing Organization Address City/State/ZIP Code [place] [address] [facility] [address] Lab (1st floor, no room number) documented in this encounter Visit Diagnoses Diagnosis Essential hypertension - Primary Unspecified essential hypertension Chronic renal insufficiency, stage 3 (mo derate) (H) 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 [address] [place] [address] Peter Gipson PCP - Urology 04/02/15 MD Jordan [facility] [address] [place] [address] [address] [place], [place] [id number] Peter Mcmullen Assigned Musculoskeletal 06/01/20 MD Mahendra Provider [address] [place] [address] Giuliana Gomez Assigned Heart and 06/30/21 CALLIE Hernandez DIRECTOR [facility] Vascular Provider [address] [place] [id number] documented as of this encounter
--- OUTSIDE RECORDS SUMMARY | 2022-05-02 12:24 | XMS_ITS | Encounter Summary ---
:1950 Author Organization [place] Address [address] [facility] [place] [address] Care Team Providers Name Role Phone Anatoliy Jackson MD Primary Care Provider Heath More MD Unavailable Peter Gipson MD Unavailable Peter Mcmullen MD Unavailable Giuliana Gomez APRN [facility] Unavailable [phone] Encounter Details Date Type Department Care Team Description 07/17/2021 Travel Social History Tobacco Use Types Packs/Day [...] been in contact with No / Unsure 07/17/2021 9:49 AM MARKETING MANAGER HEALTH COMMUNICATIONS someone who was confirmed or 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 documented as of this encounter Plan of Treatment Upcoming Encounters Date Type Specialty Care Team Description 05/15/2022 Hospital Encounter Surgery Singh Torres MD [facility] [address] [place] [address] (Wo rk) 05/15/2022 Surgery Surgery Neo Torres MD BLEPHAROPLASTY BILATERAL [facility] PTOSIS REPAIR BILATERAL [address] [place] [address] (Wo rk) 06/25/2022 Ancillary Procedure Cardiology Kirk Silver MD [address] [place] [address] (Wo rk) Scheduled Procedures Name Priority Associated [...] on filedocumented in this encounter Care Teams Software Configuration Manager Relationship Specialty Start Date End Date Anatoliy Jackson MD PCP - General 05/14/12 Heath More PCP - Internal Medicine INTERNAL MEDICINE - 01/06/14 MD Andreas ENDOCRINOLOGY, [facility] [address] [place] [address] Peter Gipson PCP - Urology 04/02/15 MD Jordan [facility] [address] [facility] [address] [place] [address] Peter Mcmullen Assigned Musculoskeletal 06/01/20 MD Mahendra Provider [address] [place], [place] [id number] Giuliana Gomez Assigned Heart and 06/30/21 A, REPRODUCER ACIDIZER WATER WELL Vascular Provider [address] [place], [place] [address] documented as of this encounter
--- OUTSIDE RECORDS SUMMARY | 2022-05-02 12:24 | XMS_ITS | Encounter Summary ---
:1950 Author Organization [place] Address [address] [facility] [place] [address] Care Team Providers Name Role Phone Anatoliy Jackson MD Primary Care Provider Heath More MD Unavailable Peter Gipson MD Unavailable Peter Mcmullen MD Unavailable Giuliana Gomez APRN ENVIRONMENTAL EMERGENCIES ASSISTANT Unavailable Giuliana Gomez APRN ENVIRONMENTAL EMERGENCIES ASSISTANT Unavailable [phone] Fidencio Solis MD Unavailable Reason for Visit Reason Comments Blood Pressure Check BP Check Encounter Details Date Type Department Care Team Description 08/21/2021 Documentation Only Patricia Reyes Blood P ressure Check [facility] (BP Check) [facility]-[address] [place] [address] Social History Tobacco Use Types [...] with No / Unsure 08/21/2021 9:56 AM HEAVY EQUIPMENT ENGINE MECHANIC someone who was confirmed or 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 documented as of this encounter Progress Notes Patricia Toure CMA - 08/21/2021 10:23 AM CST ALLIED HEALTH BLOOD PRESSURE CHECK Last office visit: 08/05/21 Previous blood pressure: 132/67 mm Hg Previous heart rate: 55 bpm Time of visit: 10:00 Morning medications were taken at: 8:00 AM Today's blood pressure: 118/54 mm Hg Today's heart rate: 60 bpm Home monitor blood pressure: 164/77 mmHg - taken at 8:15 AM Home monitor heart rate: 64 bpm Additional Comments: [facility] BP Check 08/19/21 - 140/60, pulse 61 Home blood pressure machine checked in clinic today: BP: 132/62 HR: 54 Results routed to: JOAQUÍN Sung RN's Ordering Provider: Fadi Gomez In clinic Provider: Dr. Baugh Allison Morrell RN - 08/21/2021 10:23 AM CST Review BP check: Called and spoke to Nikita. He states his home cuff is 15-16 points higher than your cuff. We did discuss how some medications take 2-3 hours to make an impact. He states he is aware of that.He will bring BP log to 09/10 appt Future Appointments Date Time Provider Department Center 09/10/2021 1:45 PM RU LAB [facility] 09/10/2021 2:30 PM Giuliana Gomez APRN CNP [facility] 10/10/2021 9:45 AM Fidencio Solis MD [facility] Allison Jensen, LETICIA 11:06 AM 08/21/21 Y EQUIPMENT ENGINE MECHANIC Giuliana Gomez APRN ENVIRONMENTAL EMERGENCIES ASSISTANT - 08/21/2021 10:23 AM CST I have been working with Elizabeth Moran, since this morning on it, so I replied to her. Thanks Giuliana Gomez APRN, BIANCA Y EQUIPMENT ENGINE MECHANIC Elizabeth Fernandez, LETICIA - 08/21/2021 10:23 AM CST Did call Nikita and left VM w/ recommendations (see separate encounter dated 08/19/21- BP check for further details). No med changes made. Home BP cuff inaccurate. Elizabeth Fernandez [place] [facility] Retail Grocer 08/21/21, 4:10 PM Y EQUIPMENT ENGINE MECHANIC documented in this encounter Plan of Treatment Upcoming Encounters Date Type Specialty Care Team Description 05/15/2022 Hospital Encounter Surgery Singh Torres MD [facility] [address] [place], [place] [address] (Wo rk) 05/15/2022 Surgery Surgery Neo Torres MD BLEPHAROPLASTY BILATERAL [place] [facility], INTERNAL & SURGEONS [place] PTOSIS REPAIR BILATERAL [address] [place] [id number] (Wo rk) 06/25/2022 Ancillary Procedure Cardiology Kirk Silver MD [address] [place] [address] (Wo rk) Scheduled Procedures Name Priority Associated [...] on filedocumented in this encounter Care Teams Engraver Hand Hard Metals Relationship Specialty Start Date End Date Anatoliy Jackson, PCP - General 05/14/12 Heath More PCP - Internal Medicine INTERNAL MEDICINE - 01/06/14 MD Andreas ENDOCRINOLOGY, DIABETES [facility] [address] [place] [phone] Peter Gipson PCP - Urology 04/02/15 MD Jordan [facility] [address] [place] [address] [address] [place], [place] [id number] Peter Mcmullen Assigned Musculoskeletal 06/01/20 MD Mahendra Provider [address] [place], [place] [address] Giuliana Gomez Assigned Heart and 06/30/21 A, SUPERVISOR AIRCRAFT MAINTENANCE ENVIRONMENTAL EMERGENCIES ASSISTANT Vascular Provider [address] [place] [address] Giuliana Gomez Nurse Practitioner Cardiovascular Disease 2 A, SUPERVISOR AIRCRAFT MAINTENANCE ENVIRONMENTAL EMERGENCIES ASSISTANT [address] [place] [address] Fidencio Solis MD MD Cardiovascular Disease 08/21/[address], [address] [place] [address] documented as of this encounter
--- OUTSIDE RECORDS SUMMARY | 2022-05-02 12:24 | XMS_ITS | Encounter Summary ---
:1950 Author Organization [place] Address [address] [place] [address] Care Team Providers Name Role Phone Anatoliy Jackson MD Primary Care Provider Heath More MD Unavailable Peter Gipson MD Unavailable Peter Mcmullen MD Unavailable Giuliana Gomez APRN [facility] Unavailable [phone] Reason for Visit Reason Onset Date Comments Clinic Care Coordination - Follow-up 07/22/2021 BP readings Encounter Details Date Type Department Care Team Description 07/22/2021 Telephone [facility] Elizabeth Fernandez Care Coordination [facility] Heart LETICIA Wen - Follow-up (BP readings [facility] ) [address] [address] Social History Tobacco Use [...] with No / Unsure 07/22/2021 9:57 AM METER TESTER POLYPHASE someone who was confirmed or 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 documented as of this encounter Miscellaneous Notes Telephone Encounter - Elizabeth Fernandez RN - 07/22/2021 11:57 AM METER TESTER POLYPHASE Images from the original note were not included. Nikita brought in recent home BP readings. Elizabeth Fernandez RN [place], [place] [facility] Cover Creaser 07/22/21, 11:59 AM R TESTER POLYPHASE Telephone Encounter - Elizabeth Fernandez RN - 07/22/2021 11:51 AM METER TESTER POLYPHASE ----- Message from Elizabeth Fernandez RN sent at 07/22/2021 10:53 AM METER TESTER POLYPHASE ----- Regarding: RE: Blood pressure check Thanks La, Question: was that 183/82 home monitor BP reading [facility] I see the 10:08 am right arm blood pressure machine showed 126/59. Pepe ----- Message ----- From: Coni Liu CMA Sent: 07/22/2021 10:42 AM METER TESTER POLYPHASE To: Allison Jensen RN, # Subject: Blood pressure check ALLIED HEALTH BLOOD PRESSURE CHECK Last office visit: 07/17/21 ?? Previous blood pressure: 131/61 mm Hg Previous heart rate: 59 bpm ? Time of visit: 10:00 am ?? Morning medications were taken at: Yes, around 9 am. Today's blood pressure: 110/50 mm Hg Today's heart rate: 64 bpm ?? Home monitor blood pressure: 183/82 mmHg Home monitor heart rate: 70 bpm ? Additional Comments: Continues to have high blood pressure in the afternoon and evening. No reactions to the medicine changes. Pt's blood pressure machine used at 10:08 am right arm: 126 59 P: 64 ? Results routed to: Elijah Sung Rn's ? Ordering Provider: Fadi Gomez In clinic Provider: Dr. Baugh R TESTER POLYPHASE documented in this encounter Plan of Treatment Upcoming Encounters Date Type Specialty Care Team Description 05/15/2022 Hospital Encounter Surgery Singh Torres MD [facility] [address] [place] [address] (Wo rk) 05/15/2022 Surgery Surgery Neo Torres MD BLEPHAROPLASTY BILATERAL [place] [facility] IDS, INTERNAL & SURGEONS PA PTOSIS REPAIR BILATERAL [address] [place] [address] (Wo rk) 06/25/2022 Ancillary Procedure Cardiology Kirk Silver MD [address] [place] [phone] (Wo rk) Scheduled Procedures Name Priority Associated [...] on filedocumented in this encounter Care Teams Animal Shelter Supervisor Relationship Specialty Start Date End Date Anatoliy Jackson MD PCP - General 05/14/12 Heath More PCP - Internal Medicine INTERNAL MEDICINE - 01/06/14 MD Andreas ENDOCRINOLOGY, [facility] [address] [place] [phone] Peter Gipson PCP - Urology 04/02/15 MD Jordan [facility] [address] [facility] [address] [place] [address] Peter Mcmullen Assigned Musculoskeletal 06/01/20 MD Mahendra Provider [address] [place], [place] [address] Giuliana Gomez Assigned Heart and 06/30/21 A, CONTINUOUS PILLOWCASE CUTTER LAPEL PADDER Vascular Provider [address] [place] [id number] documented as of this encounter
--- OUTSIDE RECORDS SUMMARY | 2022-05-02 12:24 | XMS_ITS | Encounter Summary ---
:1950 Author Organization [place] Address [address] [place] [address] Care Team Providers Name Role Phone Anatoliy Jackson MD Primary Care Provider Heath More MD Unavailable Peter Gipson MD Unavailable Peter Mcmullen MD Unavailable Giuliana Gomez APRN [facility] Unavailable [phone] Encounter Details Date Type Department Care Team Description 08/05/2021 Travel Social History Tobacco Use Types Packs/Day [...] with No / Unsure 08/05/2021 11:47 AM APICULTURE TEACHER someone who was confirmed or 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 documented as of this encounter Plan of Treatment Upcoming Encounters Date Type Specialty Care Team Description 05/15/2022 Hospital Encounter Surgery Singh Torres MD [facility] [address] [place] [address] (Wo rk) 05/15/2022 Surgery Surgery Neo Torres MD BLEPHAROPLASTY BILATERAL [place] [facility] IDS, INTERNAL & SURGEONS PA PTOSIS REPAIR BILATERAL [address] [place] [address] (Wo rk) 06/25/2022 Ancillary Procedure Cardiology Kirk Silver MD [address] [place] [address] (Wo rk) Scheduled Procedures Name Priority Associated [...] on filedocumented in this encounter Care Teams Technical Services Assistant Relationship Specialty Start Date End Date Anatoliy Jackson MD PCP - General 05/14/12 Heath More PCP - Internal Medicine INTERNAL MEDICINE - 01/06/14 MD Andreas ENDOCRINOLOGY, [facility] [address] [place] [address] Peter Gipson PCP - Urology 04/02/15 MD Jordan [facility] 360 [facility] [address] [place] [address] Peter Mcmullen Assigned Musculoskeletal 06/01/20 MD Mahendra Provider [address] [place], [place] [address] Giuliana Gomez Assigned Heart and 06/30/21 A, ICE BAG ASSEMBLER LINE OUT WORKER Vascular Provider [address] [place], [place] [address] documented as of this encounter
--- OUTSIDE RECORDS SUMMARY | 2022-05-02 12:24 | XMS_ITS | Encounter Summary ---
:1950 Author Organization [place] Address [address] [facility] [place] [address] Care Team Providers Name Role Phone Anatoliy Jackson MD Primary Care Provider Heath More MD Unavailable Peter Gipson MD Unavailable Peter Mcmullen MD Unavailable Giuliana Gomez APRN [facility] Unavailable [phone] Encounter Details Date Type Department Care Team Description 07/03/2021 Travel Social History Tobacco Use Types Packs/Day Years Used Date Former Smoker Cigarettes 2 Quit: 04/19/19 71 Smokeless Tobacco: Never Used Alcohol Use Standard Drinks/Week Comments Not Currently 0 (1 standard drink = 0.6 oz pure beer a nd wine, 2 most days - none alcohol) recently Alcohol Habits Answer Date Recorded How often do you have a drink Not asked containing alcohol? How many drinks containing alcohol do Not asked you have on a typical day when you are drinking? How often do you have six or more Not asked drinks on one occasion? Comment: beer and wine, 2 most days - none 2020 recently Sex Assigned at Date Recorded Male 03/12/2021 12:11 PM CDT COVID-19 Exposure Response Date Recorded In the last month, have you been in contact with No / Unsure 07/03/2021 8:17 AM CONTROLLER COAL OR ORE someone who was confirmed or 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 documented as of this encounter Plan of Treatment Upcoming Encounters Date Type Specialty Care Team Description 05/15/2022 Hospital Encounter Surgery Singh Torres MD [facility] [address] [place] [address] (Wo rk) 05/15/2022 Surgery Surgery Neo Torres MD BLEPHAROPLASTY BILATERAL [facility] IDS, INTERNAL & SURGEONS [place] PTOSIS REPAIR BILATERAL [address] [place] [address] (Wo rk) 06/25/2022 Ancillary Procedure Cardiology Kirk Silver MD [address] [place] [id number] (Wo rk) Scheduled Procedures Name Priority Associated [...] on filedocumented in this encounter Care Teams Cold Type Composing Machine Operator Relationship Specialty Start Date End Date Anatoliy Jackson MD PCP - General 05/14/12 Heath More PCP - Internal Medicine INTERNAL MEDICINE - 01/06/14 MD Andreas ENDOCRINOLOGY, [facility] [address] [place] [address] Peter Gipson PCP - Urology 04/02/15 MD Jordan [facility] [address] [place] [address] [address] [place] [address] Peter Mcmullen Assigned Musculoskeletal 06/01/20 MD Mahendra Provider [address] [place] [address] Giuliana Gomez Assigned Heart and 06/30/21 CALLIE Hernandez NURSE CLINICIAN Vascular Provider [address] [place] [address] documented as of this encounter
--- OUTSIDE RECORDS SUMMARY | 2022-05-02 12:24 | XMS_ITS | Encounter Summary ---
:1950 Author Organization [place] Address [address] [facility] [place] [address] Care Team Providers Name Role Phone Anatoliy Jackson MD Primary Care Provider Heath More MD Unavailable Peter Gipson MD Unavailable Peter Mcmullen MD Unavailable Giuliana Gomez APRN LAST WAXER Unavailable [phone] Reason for Visit Reason Comments Blood Pressure Check blood pressure check Encounter Details Date Type Department Care Team Description 08/19/2021 Allied Health/Nurse [facility] P ressure Check Visit [facility] (bloo d pressure check ) [address] [place] [address] Social History Tobacco Use Types [...] with No / Unsure 08/19/2021 3:15 PM MARKET BASKET MAKER someone who was confirmed or 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 documented as of this encounter Progress Notes Coni Liu CMA - 08/19/2021 3:15 PM CST ALLIED HEALTH BLOOD PRESSURE CHECK Last office visit: 08/05/21 Previous blood pressure: 130/67 mm Hg Previous heart rate: 55 bpm Time of visit: 3:25 pm Morning medications were taken at: Yes, 11:45 am Today's blood pressure: 140/60 mm Hg (R arm) Today's heart rate: 61 bpm Home monitor blood pressure: 155/74 mmHg @ 11:45am Home monitor heart rate: 63 bpm 2:25 pm 145/65 P: 58 Left arm for both readings at home. Additional Comments: CPAP mask a bit to small, ordered a new size, starting Imdur 60 mg pt hasn't noticed much of a difference. Pt's machine @ 3:32 pm B/P: 156/67 P: 67 Results routed to: Giuliana Gomez Sara Fairchild, RN Ordering Provider: Giuliana Gomez In clinic Provider: Dr. Kevin ET BASKET MAKER documented in this encounter Plan of Treatment Upcoming Encounters Date Type Specialty Care Team Description 05/15/2022 Hospital Encounter Surgery Singh Torres MD [facility] [address] [place] [address] (Wo rk) 05/15/2022 Surgery Surgery Neo Torres MD BLEPHAROPLASTY BILATERAL [place] [facility] IDS, INTERNAL & SURGEONS PA PTOSIS REPAIR BILATERAL [address] [place], [place] [address] (Wo rk) 06/25/2022 Ancillary Procedure Cardiology Kirk Silver MD [address] [place] [address] (Wo rk) Scheduled Procedures Name Priority Associated [...] ptosis documented in this encounter Care Teams Shuttle Bus Driver Relationship Specialty Start Date End Date Anatoliy Jackson MD PCP - General 05/14/12 Heath More PCP - Internal Medicine INTERNAL MEDICINE - 01/06/14 MD Andreas ENDOCRINOLOGY, [facility] [address] [facility] [address] [place] [address] Peter Gipson PCP - Urology 04/02/15 MD Jordan [facility] [address] [place] [address] Peter Mcmullen Assigned Musculoskeletal 06/01/20 MD Mahendra Provider [facility] [address] [facility] [address] [place], [place] [address] Giuliana Gomez Assigned Heart and 06/30/21 A, CAR WASH ATTENDANT AUTOMATIC LAST WAXER Vascular Provider [address] [place] [address] documented as of this encounter
--- OUTSIDE RECORDS SUMMARY | 2022-05-02 12:24 | XMS_ITS | Encounter Summary ---
:1950 Author Organization [place] Address [address] [place] [address] Care Team Providers Name Role Phone Anatoliy Jackson MD Primary Care Provider Heath More MD Unavailable Peter Gipson MD Unavailable Peter Mcmullen MD Unavailable Giuliana Gomez APRN PHARMACIST HELPER Unavailable [phone] Giuliana Gomez APRN PHARMACIST HELPER Unavailable [phone] Fidencio Solis MD Unavailable Reason for Visit Reason Onset Date Comments Refill Request 09/04/2021 hydralazine - dose dasia mendiola Encounter Details Date Type Department Care Team Description 09/04/2021 Refill [facility] Karla Amin, Refill Request Health Heart RN (hydralazine - dose [facility]) [address] [address] Social History Tobacco Use Types [...] with No / Unsure 08/21/2021 9:56 AM PHARMACEUTICAL SCIENTIST someone who was confirmed or 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 documented as of this encounter Miscellaneous Notes Telephone Encounter - Karla Amin RN - 09/04/2021 4:02 PM CST Received refill request for: Hydralazine - dose change Last OV was: 08/05/21 with BIANCA Hernández Labs/EKG: na F/U scheduled: 09/10/21 with BIANCA Hernández New script sent to: [facility] MACEUTICAL SCIENTIST documented in this encounter Plan of Treatment Upcoming Encounters Date Type Specialty Care Team Description 05/15/2022 Hospital Encounter Surgery Singh Torres MD [facility] [address] [place] [address] (Rosalva rk) 05/15/2022 Surgery Surgery Neo Torres MD BLEPHAROPLASTY BILATERAL [place] [facility] L IDS, INTERNAL & SURGEONS PA PTOSIS REPAIR BILATERAL [address] [place] [address] (Wo rk) 06/25/2022 Ancillary Procedure Cardiology Kirk Silver MD [address] [place] [address] (Rosalva rk) Scheduled Procedures Name Priority Associated [...] ptosis documented in this encounter Care Teams Public Policy Coordinator Relationship Specialty Start Date End Date Anatoliy Jackson PCP - General 05/14/12 Heath More PCP - Internal Medicine INTERNAL MEDICINE - 01/06/14 MD Andreas ENDOCRINOLOGY, DIABETES ENDOCRINE [facility] & [facility]OLISM [facility] [address] [place] [phone] Peter Gipson PCP - Urology 04/02/15 MD Jordan [facility] UR[facility]Y [address] [place] [address] Peter Mcmullen Assigned Musculoskeletal 06/01/20 MD Mahendra Provider [facility] [place], [place] [address] [place], [place] [address] Giuliana Gomez Assigned Heart and 06/30/21 A, PHOTO SPECIALIST PHARMACIST HELPER Vascular Provider [address] [place] [address] Giuliana Gomez Nurse Practitioner Cardiovascular Disease 2 A, PHOTO SPECIALIST PHARMACIST HELPER [address] [place] [address] Fidencio Solis MD MD Cardiovascular Disease 08/21/[address], [facility] [address] [place] [address] documented as of this encounter
--- OUTSIDE RECORDS SUMMARY | 2022-05-02 12:24 | XMS_ITS | Encounter Summary ---
:1950 Author Organization [place] Address [address] [facility] [place] [address] Care Team Providers Name Role Phone Anatoliy Jackson MD Primary Care Provider Heath More MD Unavailable Peter Gipson MD Unavailable Peter Mcmullen MD Unavailable Giuliana Gomez APRN SKEIN STRAIGHTENER Unavailable [phone] Giuliana Gomez APRN SKEIN STRAIGHTENER Unavailable [phone] Fidencio Solis MD Unavailable Reason for Visit Reason Comments Blood Pressure Check BP Check Encounter Details Date Type Department Care Team Description 08/21/2021 Allied Health/Nurse [facility] P ressure Check Visit [facility] Heart (BP C heck) [facility] [address] [place] [address] [address] [place] [address] Social History Tobacco Use Types [...] with No / Unsure 08/21/2021 9:56 AM NITROGLYCERIN NEUTRALIZER someone who was confirmed or 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 documented as of this encounter Last Filed Vital Signs Vital Sign Reading Time Taken Comments Blood Pressure 118/54 08/21/2021 10:22 AM NITROGLYCERIN NEUTRALIZER Pulse 60 08/21/2021 10:22 AM NITROGLYCERIN NEUTRALIZER Temperature - - Respiratory Rate - - Oxygen Saturation - - Inhaled Oxygen Concentration - - Weight - - Height - - Body Mass Index - - documented in this encounter Progress Notes Patricia Toure CMA - 08/21/2021 10:00 AM CST ALLIED HEALTH BLOOD PRESSURE CHECK [...] Fadi Gomez In clinic Provider: Dr. Baugh OGLYCERIN NEUTRALIZER documented in this encounter Plan of Treatment Upcoming Encounters Date Type Specialty Care Team Description 05/15/2022 Hospital Encounter Surgery Singh Torres MD [facility] [address] [place] [address] (Wo rk) 05/15/2022 Surgery Surgery Neo Torres MD BLEPHAROPLASTY BILATERAL [place] [facility] IDS, INTERNAL & SURGEONS [place] PTOSIS REPAIR BILATERAL [address] [place] [address] (Wo rk) 06/25/2022 Ancillary Procedure Cardiology Kirk Silver MD [address] [place] [id number] (Wo rk) Scheduled Procedures Name Priority Associated [...] ptosis documented in this encounter Care Teams Property Master Relationship Specialty Start Date End Date Anatoliy Jackson, PCP - General 05/14/12 Heath More PCP - Internal Medicine INTERNAL MEDICINE - 01/06/14 MD Andreas ENDOCRINOLOGY, DIABETES ENDOCRINE [facility] [address] [place] [phone] Peter Gipson PCP - Urology 04/02/15 MD Jordan [facility] 360 [facility] [address] [place] [address] Peter Mcmullen Assigned Musculoskeletal 06/01/20 MD Mahendra Provider [address] [place] [address] Giuliana Gomez Assigned Heart and 06/30/21 A, CAR SHIFTER SKEIN STRAIGHTENER Vascular Provider [address] [place] [address] Giuliana Gomez Nurse Practitioner Cardiovascular Disease 2 A, CAR SHIFTER SKEIN STRAIGHTENER [address] [place] [address] Fidencio Solis MD MD Cardiovascular Disease 08/21/21 [address], [address] [place] [address] documented as of this encounter
--- OUTSIDE RECORDS SUMMARY | 2022-05-02 12:24 | XMS_ITS | Encounter Summary ---
:1950 Author Organization [place] Address [address] [facility] 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-shoshone heart without angina pectoris Giuliana Gomez APRN CNP [address] [facility] [address] [place] [address] Referral ID Status Reason Start Date Expiration Date Visits V isits Requested Authorized [id number] Pending 07/18/2021 07/18/2022 1 1 Review ORNE SENSOR SPECIALIST Encounter Details Date Type Department Care Team Description 07/18/2021 [facility] LETICIA Wen Coron micaela artery disease involving paiute-shoshone coronary artery of paiute-shoshone heart without angina pectoris [address] [place] [phone] Social History Tobacco Use Types Packs/Day Years [...] with No / Unsure 07/17/2021 9:49 AM AIRBORNE SENSOR SPECIALIST someone who was confirmed or 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 documented as of this encounter Progress Notes Elizabeth Fernandez RN - 07/18/2021 2:43 PM CST Images from the original note were not included. Orders placed for in clinic BP check to compare home BP cuff. Message sent to scheduling requesting they contact pt to arrange appt. .sfsig ORNE SENSOR SPECIALIST documented in this encounter Plan of Treatment Upcoming Encounters Date Type Specialty Care Team Description 05/15/2022 Hospital Encounter Surgery Singh Torres MD [facility] [address] [place] [address] (Wo rk) 05/15/2022 Surgery Surgery Neo Torres MD BLEPHAROPLASTY BILATERAL [facility] UPPER L IDS, INTERNAL & SURGEONS [place] PTOSIS REPAIR BILATERAL [address] [place] [address] [place] [id number] (Wo rk) 06/25/2022 Ancillary Procedure Cardiology Kirk Silver MD [address] [place] [id number] (Wo rk) Scheduled Procedures Name Priority Associated [...] Follow-Up with Referral Routine: Next Essential Expected: Nurse available opening hypertension 07/19/2021 Coronary artery (Approximate ), disease involving Expires: 1 09/18/2021 paiute-shoshone coronary artery of paiute-shoshone heart without angina pectoris documented as of this encounter Visit Diagnoses Diagnosis Essential hypertension - Primary Unspecified essential hypertension Coronary artery disease involving paiute-shoshone coronary artery of paiute-shoshone heart without angina pectoris 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 [address] [place] [phone] Peter Gipson PCP - Urology 04/02/15 MD Jordan [facility] [address] [facility] [address] [place] [address] Peter Mcmullen Assigned Musculoskeletal 06/01/20 MD Mahendra Provider [address] [facility] [address] [place], [place] [address] Giuliana Gomez Assigned Heart and 06/30/21 A, SHOOTER'S HELPER ASPHALT PAVER Vascular Provider [address] [place] [id number] documented as of this encounter
--- OUTSIDE RECORDS SUMMARY | 2022-05-02 12:24 | XMS_ITS | Encounter Summary ---
:1950 Author Organization [place] Address [address] [facility] [address] Care Team Providers Name Role Phone Anatoliy Jackson MD Primary Care Provider Heath More MD Unavailable Peter Gipson MD Unavailable Peter Mcmullen MD Unavailable Giuliana Gomez APRN HEARING CARE PROFESSIONAL Unavailable [phone] Reason for Visit Reason Comments CORE received fax w/ BP updates Encounter Details Date Type Department Care Team Description 07/30/2021 Care Coordination [facility] (rec eived fax w/ [facility] Elizabeth Wen RN BP updates ) [facility] [address] Social History Tobacco Use Types [...] with No / Unsure 07/22/2021 9:57 AM MARRIAGE THERAPIST someone who was confirmed or 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 documented as of this encounter Progress Notes Elizabeth Fernandez RN - 07/30/2021 2:10 PM CST Images from the original note were not included. [facility] Received the following fax from Nikita: Future Appointments Date Time Provider Department Center 08/05/2021 11:45 AM [facility] 08/05/2021 12:30 PM Giuliana Gomez APRN CNP [facility] 09/10/2021 1:45 PM [facility] [facility] 09/10/2021 2:30 PM Giuliana Gomez APRN CNP [facility] 10/10/2021 9:45 AM Fidencio Solis MD [facility] Elizabeth Fernandez RN BSN [facility] [place], [place] [facility] Clinic Academic Advisor 07/30/21, 2:13 PM IAGE THERAPIST Giuliana Gomez APRN CNP - 07/30/2021 2:10 PM CST Reviewed Home BP's. Instruct him to increase amlodipine to 10mg daily. ( at the time we set up) Giuliana Gomez APRN, CNP IAGE THERAPIST Elizabeth Fernandez RN - 07/30/2021 2:10 PM CST Called Nikita and instructed him to increase amlodipine to 10 mg daily, he takes in AM. He voices understanding and denies further questions or concerns at this time. He reports he is on an abx for heel infection d/t dry, cracking skin. He is on 8 of 10 day prescription. He is wondering if that can increase BP. Future Appointments Date Time Provider Department Center 08/05/2021 11:45 AM RU [facility] [facility] 08/05/2021 12:30 PM Giuliana Gomez APRN CNP [facility] 09/10/2021 1:45 PM RU LAB [facility] [place] [facility] 09/10/2021 2:30 PM Giuliana Gomez APRN CNP [facility] 10/10/2021 9:45 AM Fidencio Solis MD [facility] Elizabeth Fernandez HOME CARE SCHEDULER [place], [place] C.O.R[facility] Clinic Academic Advisor 07/31/21, 10:24 AM IAGE THERAPIST documented in this encounter Plan of Treatment Upcoming Encounters Date Type Specialty Care Team Description 05/15/2022 Hospital Encounter Surgery Singh Torres MD [facility] [address] [place] [id number] (Wo rk) 05/15/2022 Surgery Surgery Neo Torres MD BLEPHAROPLASTY BILATERAL [facility] UPPER L IDS, INTERNAL & SURGEONS PA PTOSIS REPAIR BILATERAL [address] [place] [address] [place] [phone] (Wo rk) 06/25/2022 Ancillary Procedure Cardiology Kirk Silver MD [address] [place] [id number] (Wo rk) Scheduled Procedures Name Priority Associated [...] on filedocumented in this encounter Care Teams Nutritionist Relationship Specialty Start Date End Date Anatoliy Jackson MD PCP - General 05/14/12 Heath More PCP - Internal Medicine INTERNAL MEDICINE - 01/06/14 MD Andreas ENDOCRINOLOGY, [facility] [address] [place] [address] [place] [phone] Peter Gipson PCP - Urology 04/02/15 MD Jordan [facility] [address] [facility] [address] [place] [address] Peter Mcmullen Assigned Musculoskeletal 06/01/20 MD Mahendra Provider [facility] [address] [facility] [address] [place], [place] [address] Giuliana Gomez Assigned Heart and 06/30/21 A, RACE RELATIONS ADVISER HEARING CARE PROFESSIONAL Vascular Provider [address] [place] [id number] documented as of this encounter
--- OUTSIDE RECORDS SUMMARY | 2022-05-02 12:24 | XMS_ITS | Encounter Summary ---
:1950 Author Organization [place] Address [address] [facility] [place] [address] Care Team Providers Name Role Phone Anatoliy Jackson MD Primary Care Provider Heath More MD Unavailable Peter Gipson MD Unavailable Peter Mcmullen MD Unavailable Giuliana Gomez APRN, CNP Unavailable Reason for Visit Reason Comments Follow Up Blood Pressure Check Encounter Details Date Type Department Care Team Description 08/05/2021 Office Visit Lori Giuliana Gomez hypertension; [facility] CALLIE Hernandez CNP Chronic renal insufficiency, stage 3 (mo derate) (H); [facility] [id number] S/P CABG (coronary artery by pass graft) [address] [facility] [address] [place] [address] [place], [place] [phone] (Wo rk) [address] [phone] Social History Tobacco Use Types Packs/Day Years [...] with No / Unsure 08/05/2021 11:47 AM SHAREPOINT SOLUTIONS DEVELOPER someone who was confirmed or 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 documented as of this encounter Last Filed Vital Signs Vital Sign Reading Time Taken Comments Blood Pressure 132/67 08/05/2021 12:25 PM SHAREPOINT SOLUTIONS DEVELOPER Pulse 55 08/05/2021 12:25 PM SHAREPOINT SOLUTIONS DEVELOPER Temperature - - Respiratory Rate - - Oxygen Saturation 98% 08/05/2021 12:25 PM SHAREPOINT SOLUTIONS DEVELOPER Inhaled Oxygen Concentration - - Weight 97.1 kg (214 lb) 08/05/2021 12:25 PM SHAREPOINT SOLUTIONS DEVELOPER Height 180.3 cm (5' 11) 08/05/2021 12:25 PM SHAREPOINT SOLUTIONS DEVELOPER Body Mass Index 29.85 08/05/2021 12:25 PM SHAREPOINT SOLUTIONS DEVELOPER documented in this encounter Patient Instructions Patient InstructionsGiuliana Gomez APRN FLOTATION TENDER HELPER - 08/05/2021 12:30 PM SHAREPOINT SOLUTIONS DEVELOPER Call C.O.R.E. nurse for any questions or concerns Mon-Fri 8am-4pm: [phone]: schmitty For concerns after hours: [phone] Medication changes: 1. Increase isosorbide mononitrate 60mg daily at 4 pm. Plan from today: 1. 24 hour BP monitor 1 week after starting CPAP . 2. See me in Sep.[address] Solis in October Lab results: Results for NIKITA ANDERSON ( ) as of 08/05/2021 12:59 Ref. Range 08/05/2021 11:53 Sodium Latest Ref Range: 133 - 144 mmol/L 140 Potassium Latest Ref Range: 3.4 - 5.3 mmol/L 4.7 Chloride Latest Ref Range: 94 - 109 mmol/L 112 (H) Carbon Dioxide Latest Ref Range: 20 - 32 mmol/L 27 Urea Nitrogen Latest Ref Range: 7 - 30 mg/dL 34 (H) Creatinine Latest Ref Range: 0.66 - 1.25 mg/dL 1.27 (H) GFR Estimate Latest Ref Range: >60 mL/min/1.73m2 60 (L) Calcium Latest Ref Range: 8.5 - 10.1 mg/dL 9.1 Anion Gap Latest Ref Range: 3 - 14 mmol/L 1 (L) EPOINT SOLUTIONS DEVELOPER documented in this encounter Progress Notes Giuliana Gomez APRN CNP - 08/05/2021 12:30 PM CST CARDIOLOGY CLINIC / [facility]O.R[facility] CLINIC VISIT (Heart Failure Specialty) DOS: 08.05.21 Nikita Anderson : 1950 Primary Motor And Chassis Inspector:??Dr. Solis??( He was followed??previously??with Dr. Aguiar) ?? REASON FOR VISIT:??CAD, post CABG/ established CORE patient/ post angiogram ? HISTORY OF PRESENT ILLNESS:?? Mr. Anderson is [...] planning to go to a trip to [place] shortly thereafter. ??As his symptoms were stable, [...] the LAD and RCA, also with a DIE SINKER of OM2. F.??04/19/2021,??CABG:??DOUGLASS to LAD, reverse SVG to PDA, reverse SVG to OM 2. G.??06/24/21 Nuc.stress test did??not show any inferior defects though there was significant diaphragmatic attenuation affecting interpretation of the inferior wall. H. Returned to skill labor 07/03/21 due to noted reduced LVEF on post CABG echo, and mild basal anterior ischemia on MPI and run of SVT. It showed no angiographic explanation seen for patient's echocardiogram findings. PCI of OM 3 could be considered in the future if patient develops symptomatic angina un responsive to medical therapy. ??Otherwise, PCI not recommended if he remains asymptomatic, as this would not be expected to improve global LV function, or reduce risk of mortality, OR, heart failure hospitalization. ?? 6.??Ischemic cardiomyopathy. Carvedilol for??borderline bradycardia,??but restarted??due to the nonsustained VT.?Recent decline in LVEF to 46%. 7.?Borderline bradycardia, carvedilol was discontinued. ??He was found to have a pleural effusionfor which he underwent thoracentesis 04/29/2021. 8.??Tachycardia vs??atrial fibrillation,??a??Holter monitor 05/07 to 05/09/2021 that demonstrated 2 short [...] surgery in 2015?? 11. Sleep apnea 2020 ? Given the drop in LV function and change in wall motion after CABG, as well as NSVT seen on cardiac event monitor and new basal anterior ischemia on nuclear stress test,??he proceeded with repeat coronary and bypass angiogram and possible intervention, as noted above. No intervention. Recently added amlodipine 10 mg QAM, decreased hydralazine to 50 mg TID, change Imdur 30 mg to taking at 4PM, decrease lisinopril to 10 mg QHS ( due to worsening creat.) 08/05/21 returns in follow up. Home BP cuff checked with nurse with the clinic BP cuff. It appeared the readings were similar. It appears that if BP is high, the patient retakes it and its normal, questioning if the technique was done right. BP overall has improved. He did have a sleep study and was diagnosed with sleep apnea. He will be fitted for CPAP in the next week. ? PREVIOUS STUDIES (personally reviewed): BMP RESULTS: 07/03/2021 potassium 4.6, creatinine 1.18. 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 06/24/21: Nuc.stress test did??not show any inferior defects though there was significant diaphragmatic attenuation affecting interpretation of the inferior wall. ASSESSMENT AND PLAN:?? 1 Ischemic CM, TTE 06/06/2021 LVEF 46%, down from TTE 01/02/21 LVEF 55-60%. Denies symptoms concerning for angina, however did have 7 beat run of NSVT noted on cardiac event monitor.?? GDMT: Carvedilol 6.25.mg bid, lisinopril 10mg daily - no angina ?? 2.??CAD with 04/09/2015 [...] subsequent 30d event monitor. ( 04/2021) ?? 4.??HTN: Recent poorly controlled with sx , medication changes as above. - BP 130/ 67 today. - continue amlodipine 10mg daily - continue hydralazine to 50mg tid ( dose decreased recently due to sx of dizziness) - increase Imdur to 60mg at 4 pm - continue carvedilol 6.25mg bid am, 8 pm - continue lisinopril to 10mg hs ( recently decreased due to worsening creat.) ?? 7.??HL: 05/30/21: LDL 49, HDL 41 8.??DM: A1C 7.1 04/29/21?? 9.??CKD: creat. 1.33 10. Anemia, check hgb 06/30 11. Sleep apnea, new 2020 ? Recommendations: 1. Start CPAP as directed. 2. [...] to take a BP with his machine.) Follow-up: 1. With me in Sep. 2. With Dr. Solis in October with echo Thank you for the opportunity to be involved in this very pleasant patient's care please feel to contact me with any questions. Total time: 42 minutes was spent today reviewing the chart, visiting the patient, and documenting the visit. Giuliana Gomez APRN, BIANCA Nurse Practitioner [facility] CURRENT MEDICATIONS: Current Outpatient Medications Medication [...] 1 tablet (30 mg) by mouth daily 4:30 pm 90 tablet 0 ??? lisinopril (ZESTRIL) [...] for as noted above. PHYSICAL EXAMINATION: Vitals: Bp 132/67, HR 55 bpm, weight 214 pounds. Constitutional: Patient is pleasant, alert, cooperative, [...] Surgeon: Mahendra Vega MD; Location: HEART CARDIAC ELECTRICAL ENGINEERING INTERN ??? CV CORONARY ANGIOGRAM N/A 03/13/2021 Procedure: Coronary Angiogram; Surgeon: Darwin Valero MD; Location: [facility] ELECTRICAL ENGINEERING INTERN ??? CV HEART CATHETERIZATION WITH POSSIBLE INTERVENTION N/A 07/03/2021 Procedure: Coronary Angiogram; Surgeon: Mahendra Vega MD; Location: HEART CARDIAC CATHLAB ??? CV INSTANTANEOUS WAVE-FREE RATIO N/A 03/13/2021 Procedure: Instantaneous Wave-Free Ratio; Surgeon: Darwin Valero MD; Location: HEART CARDIAC ELECTRICAL ENGINEERING INTERN ??? CV LEFT HEART CATH N/A 07/03/2021 Procedure: Left Heart Cath; Surgeon: Mahendra Vega MD; Location: HEART CARDIAC ELECTRICAL ENGINEERING INTERN ??? CV LEFT VENTRICULOGRAM N/A 07/03/2021 Procedure: Left Ventriculogram; Surgeon: Mahendra Vega MD; Location: HEART CARDIAC ELECTRICAL ENGINEERING INTERN ??? HC LEFT HEART CATHETERIZATION 04/01/2016 mild [...] This note was completed in part using [employer] voice recognition software. Although reviewed after completion, some word and grammatical errors may occur. EPOINT SOLUTIONS DEVELOPER documented in this encounter Plan of Treatment Upcoming Encounters Date Type Specialty Care Team Description 05/15/2022 Hospital Encounter Surgery Singh Torres MD [facility] [address] [place] [address] (Wo rk) 05/15/2022 Surgery Surgery Neo Torres MD BLEPHAROPLASTY BILATERAL [place] [facility] UPPER L IDS, INTERNAL & SURGEONS PA PTOSIS REPAIR BILATERAL [address] [place] [address] [place] [id number] (Wo rk) 06/25/2022 Ancillary Procedure Cardiology Kirk [...] renal insufficiency, stage 3 (mo derate) (H) S/P CABG (coronary artery bypass graft) 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 documented in this encounter Care Teams Program Attendant Relationship Specialty Start Date End Date Anatoliy Jackson MD PCP - General 05/14/12 Heath More PCP - Internal Medicine INTERNAL MEDICINE - 01/06/14 MD Andreas ENDOCRINOLOGY, [facility] [address] [place] [address] [place] [phone] Peter Gipson PCP - Urology 04/02/15 MD Jordan [facility] [address] [facility] [address] [place] [address] Peter Mcmullen Assigned Musculoskeletal 06/01/20 MD Mahendra Provider [facility] [place], [place] [address] Giuliana Gomez Assigned Heart and 06/30/21 ACLALIE FLOTATION TENDER HELPER Vascular Provider [address] [place] [id number] documented as of this encounter
--- OUTSIDE RECORDS SUMMARY | 2022-05-02 12:24 | XMS_ITS | Encounter Summary ---
:1950 Author Organization [place] Address [address] [facility] [place] [place] [address] Care Team Providers Name Role Phone Anatoliy Jackson MD Primary Care Provider Heath More MD Unavailable Peter Gipson MD Unavailable Peter Mcmullen MD Unavailable Giuliana Gomez APRN POWER SYSTEM DISPATCHER Unavailable [phone] Reason for Visit Reason Comments Orders Blood Pressure Check with Janey tesfaye Encounter Details Date Type Department Care Team Description 08/16/2021 Orders Only Lori Elizabeth Theodore RN Essential h ypertension [facility] (Prim micaela Dx) [address] [address] Social History Tobacco Use Types [...] with No / Unsure 08/05/2021 11:47 AM ORGAN TUNER ELECTRONIC someone who was confirmed or 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 documented as of this encounter Progress Notes Elizabeth Theodore RN - 08/16/2021 10:40 AM CST [facility] Orders The following orders were placed for Nurse Visit x 2 for Blood Pressure Checks per BIANCA Sung RN Copyholder [facility] C.O.R.E. Nurse Line: [phone] Personal Line: [phone] 08/16/21 10:46 AM N TUNER ELECTRONIC documented in this encounter Plan of Treatment Upcoming Encounters Date Type Specialty Care Team Description 05/15/2022 Hospital Encounter Surgery Singh Torres MD [facility] [address] [place] [id number] (Wo rk) 05/15/2022 Surgery Surgery Neo Torres MD BLEPHAROPLASTY BILATERAL [facility] [facility] UPPER L IDS, INTERNAL & SURGEONS PA PTOSIS REPAIR BILATERAL [address] [place] [address] [place] [id number] (Wo rk) 06/25/2022 Ancillary Procedure Cardiology Kirk Silver MD [address] [place] [id number] (Wo rk) Scheduled Procedures Name Priority Associated [...] ptosis documented in this encounter Care Teams Charrer Relationship Specialty Start Date End Date Anatoliy Jackson MD PCP - General 05/14/12 Heath More PCP - Internal Medicine INTERNAL MEDICINE - 01/06/14 MD Andreas ENDOCRINOLOGY, [facility] [address] [facility] [address] [place] [phone] Peter Gipson PCP - Urology 04/02/15 MD Jordan [facility] [address] [facility] [address] [place] [address] Peter Mcmullen Assigned Musculoskeletal 06/01/20 MD Mahendra Provider [address] [place], [place] [address] Giuliana Gomez Assigned Heart and 06/30/21 CALLIE Hernandez POWER SYSTEM DISPATCHER Vascular Provider [address] [place] [id number] documented as of this encounter
--- OUTSIDE RECORDS SUMMARY | 2022-05-02 12:24 | XMS_ITS | Encounter Summary ---
:1950 Author Organization [place] Address [address] [facility] 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 documented as of this encounter Plan of Treatment Upcoming Encounters Date Type Specialty Care Team Description 05/15/2022 Hospital Encounter Surgery Singh Torres MD [facility] [address] [place] [address] (Wo rk) 05/15/2022 Surgery Surgery Neo Torres MD BLEPHAROPLASTY BILATERAL [facility] UPPER L IDS, INTERNAL & SURGEONS PA PTOSIS REPAIR BILATERAL [address] [place] [address] [place] [id number] (Wo rk) 06/25/2022 Ancillary Procedure Cardiology Kirk Silver MD [address] [place] [id number] (Wo rk) Scheduled Procedures Name Priority Associated [...] on filedocumented in this encounter Care Teams Edi Programmer Relationship Specialty Start Date End Date Anatoliy Jackson, PCP - General 05/14/12 Heath More PCP - Internal Medicine INTERNAL MEDICINE - 01/06/14 MD Andreas ENDOCRINOLOGY, DIABETES [facility] [address] [place] [place] [phone] Peter Gipson PCP - Urology 04/02/[address] [facility] UROLOGY [address] [place] [address] Peter Mcmullen Assigned Musculoskeletal 06/01/20 MD Mahendra Provider [address] [place], [place] [id number] Giuliana Gomez Assigned Heart and 06/30/21 A, HAND GLOVE CLEANER SIMONIZER Vascular Provider [address] [place] [address] Giuliana Gomez Nurse Practitioner Cardiovascular Disease 2 A, HAND GLOVE CLEANER SIMONIZER [address] [place] [id number] Fidencio Solis MD MD Cardiovascular Disease 08/21/21 [address] [place] [id number] documented as of this encounter
--- OUTSIDE RECORDS SUMMARY | 2022-05-02 12:24 | XMS_ITS | Encounter Summary ---
:1950 Author Organization [place] Address [address] [place] [address] Care Team Providers Name Role Phone Anatoliy Jackson MD Primary Care Provider Heath More MD Unavailable Peter Gipson MD Unavailable Peter Mcmullen MD Unavailable Giuliana Gomez APRN CLERK SECRETARY Unavailable [phone] Giuliana Gomez APRN CLERK SECRETARY Unavailable [phone] Fidencio Solis MD Unavailable Reason for Visit Reason Comments CORE Questions Encounter Details Date Type Department Care Team Description 08/22/2021 Care Coordination [facility] JOAQUÍN Jensen (Diogenes humphries ) [facility] LETICIA Cooper [address] [address] Social History Tobacco Use Types [...] with No / Unsure 08/21/2021 9:56 AM 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 documented as of this encounter Progress Notes Allison Jensen RN - 08/22/2021 1:32 PM CST Nikita called upset that I am not suppose to check my blood pressure? I don't like that idea. It always runs higher at night. What am I suppose to do? I did leave a BP cuff at the front desk receptionist for him. He will pick pack worker today or tomorrow. He was appreciative of the new cuff. He also requested a refill on clonidine Received refill request for: clonidine Last OV was: 08/05/21 with Giuliana Gomez CNP Labs/EKG: BMP 08/05/2021 F/U scheduled: 09/10/21 with Giuliana Gomez CNp New script sent to: [facility] Allison Jensen RN 1:53 PM 08/22/21 Giuliana Hills APRN CNP - 08/22/2021 1:32 PM CST We want him to do home monitoring but only if its accurate. Tell him, we're trying to get there, itsjust taking some time. Have him bring his large cuff into the next visit and if its accurate, then it makes sense to do home monitoring. Giuliana Gomez APRN, CNP Allison Morrell RN - 08/22/2021 1:32 PM CST Spoke to Nikita and asked him to bring his larger cuff to his next appt, He will. Future Appointments Date Time Provider Department Center 09/10/2021 1:45 PM RU [facility] 09/10/2021 2:30 PM Giuliana Gomez APRN CLERK SECRETARY [facility] 10/10/2021 9:45 AM Fidencio Solis MD [facility] Allison Jensen, RN 2:18 PM 08/22/21 METHODS DEVELOPER documented in this encounter Plan of Treatment Upcoming Encounters Date Type Specialty Care Team Description 05/15/2022 Hospital Encounter Surgery Singh Torres MD [facility] [address] [place] [address] (Wo rk) 05/15/2022 Surgery Surgery Neo Torres MD BLEPHAROPLASTY BILATERAL [facility], [facility] PTOSIS REPAIR BILATERAL [address] [place] [address] (Wo rk) 06/25/2022 Ancillary Procedure Cardiology Kirk Silver MD [address] [place] [address] (Wo rk) Scheduled Procedures Name Priority Associated [...] ptosis documented in this encounter Care Teams Printing Table Worker Relationship Specialty Start Date End Date Anatoliy Jackson, PCP - General 05/14/12 Heath More PCP - Internal Medicine INTERNAL MEDICINE - 01/06/14 MD Andreas ENDOCRINOLOGY, [facility] [address] [place] [phone] Peter Gipson PCP - Urology 04/02/15 MD Jordan [facility] [address] [place] [id number] Peter Mcmullen Assigned Musculoskeletal 06/01/20 MD Mahendra Provider [facility] [address] [facility] [address] [place] [address] Giuliana Gomez Assigned Heart and 06/30/21 A, STUDENT SERVICES VICE PRESIDENT CLERK SECRETARY Vascular Provider [address] [place] [address] Giuliana Gomez Nurse Practitioner Cardiovascular Disease 2 A, STUDENT SERVICES VICE PRESIDENT CLERK SECRETARY [address] [place] [id number] Fidencio Solis MD MD Cardiovascular Disease 08/21/[address] [place] [id number] documented as of this encounter
--- OUTSIDE RECORDS SUMMARY | 2022-05-02 12:24 | XMS_ITS | Encounter Summary ---
:1950 Author Organization [place] Address [address] [facility] [place] [address] Care Team Providers Name Role Phone Anatoliy Jackson MD Primary Care Provider Heath More MD Unavailable Peter Gipson MD Unavailable Peter Mcmullen MD Unavailable Giuliana Gomez APRN HEALTH COUNSELOR Unavailable Reason for Visit Reason Comments Blood Pressure Check Consultation (Routine) - Pending Review Specialty Diagnoses / Procedures Referred By Contact Refer red To Contact Diagnoses Essential hypertension Coronary artery disease involving [place] coronary artery of [place] heart without angina pectoris Giuliana Gomez, FIELD MARKETING REPRESENTATIVE HEALTH COUNSELOR [address] [facility] [address] [place] [address] Referral ID Status Reason Start Date Expiration Date Visits V isits Requested Authorized [id number] Pending 07/18/2021 07/18/2022 1 1 Review Encounter Details Date Type Department Care Team Description 07/22/2021 Allied Health/Nurse [facility] Blood Pressure Check Visit [facility] [place] [address] Social History Tobacco Use Types [...] with No / Unsure 07/22/2021 9:57 AM RIVET MAKER someone who was confirmed or 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 documented as of this encounter Progress Notes Coni Liu CMA - 07/22/2021 10:00 AM CST ALLIED HEALTH BLOOD PRESSURE CHECK Last office visit: 07/17/21 Previous blood pressure: 131/61 mm Hg Previous heart rate: 59 bpm Time of visit: 10:00 am Morning medications were taken at: Yes, around 9 am. Today's blood pressure: 110/50 mm Hg Today's heart rate: 64 bpm Home monitor blood pressure: 183/82 mmHg Home monitor heart rate: 70 bpm Additional Comments: Continues to have high blood pressure in the afternoon and evening. No reactions to the medicine changes. Pt's blood pressure machine used at 10:08 am right arm: 126 59 P: 64 Results routed to: Elijah Sung Rn's Ordering Provider: Fadi Gomez In clinic Provider: Dr. Baugh T MAKER documented in this encounter Plan of Treatment Upcoming Encounters Date Type Specialty Care Team Description 05/15/2022 Hospital Encounter Surgery Singh Torres MD [facility] [address] [place] [address] (Wo rk) 05/15/2022 Surgery Surgery Neo Torres MD BLEPHAROPLASTY BILATERAL [facility] IDS, INTERNAL & [facility] PTOSIS REPAIR BILATERAL [address] [place] [id number] (Wo rk) 06/25/2022 Ancillary Procedure Cardiology Kirk Silver MD [address] [place] [phone] (Wo rk) Scheduled Procedures Name Priority Associated Diagnoses Date/Time REPAIR, PTOSIS, BILATERAL, Dermatochalas is 05/15/2022 7:30 AM CDT WITH BILATERAL BLEPHAROPLASTY 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 REPAIR, ECTROPION, EYE, Dermatochalasis 05/15/2022 7:30 AM CDT BILATERAL 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 documented as of this encounter Visit Diagnoses Diagnosis Essential hypertension Unspecified essential hypertension Coronary artery disease involving [place] coronary artery of [place] heart without angina pectoris 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 documented in this encounter Care Teams Hall Porter Relationship Specialty Start Date End Date Anatoliy Jackson MD PCP - General 05/14/12 Heath More PCP - Internal Medicine INTERNAL MEDICINE - 01/06/14 MD Andreas ENDOCRINOLOGY, [facility] [address] [place] [phone] Peter Gipson PCP - Urology 04/02/15 MD Jordan [facility] [address] [facility] [address] [place], [place] [phone] Peter Mcmullen Assigned Musculoskeletal 06/01/20 MD Mahendra Provider [address] [place], [place] [phone] Giuliana Gomez Assigned Heart and 06/30/21 A, FIELD MARKETING REPRESENTATIVE HEALTH COUNSELOR Vascular Provider [address] [place] [address] documented as of this encounter
--- OUTSIDE RECORDS SUMMARY | 2022-05-02 12:24 | XMS_ITS | Encounter Summary ---
:1950 Author Organization [place] Address [address] [facility] [place] [address] Care Team Providers Name Role Phone Anatoliy Jackson MD Primary Care Provider Heath More MD Unavailable Peter Gipson MD Unavailable Peter Mcmullen MD Unavailable Giuliana Gomez APRN WELL SITE DRILLING ENGINEER Unavailable Giuliana Gomez APRN WELL SITE DRILLING ENGINEER Unavailable [phone] Fidencio Solis MD Unavailable Encounter Details Date Type Department Care Team Description 09/10/2021 [facility] Heart Franko nary artery disease involving coronary bypass graft of [place] heart without angina pectoris; Clinic [place] Coronary artery disease invo lving [place] coronary artery of [place] heart without angina pectoris [address] [facility] [address] [place] [address] Social History Tobacco Use [...] with No / Unsure 09/10/2021 1:43 PM SCOW HAND someone who was confirmed or 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 documented as of this encounter Plan of Treatment Upcoming Encounters Date Type Specialty Care Team Description 05/15/2022 Hospital Encounter Surgery Singh Torres MD [facility] [address] [place] [address] (Wo rk) 05/15/2022 Surgery Surgery Neo Torres MD BLEPHAROPLASTY BILATERAL [place] [facility], INTERNAL & [facility] PTOSIS REPAIR BILATERAL [address] [place] [address] (Wo rk) 06/25/2022 Ancillary Procedure Cardiology Kirk Silver MD [address] [place] [address] (Wo rk) Scheduled Procedures Name Priority Associated [...] Associated Diagnosis Comme nts BASIC METABOLIC Routine 09/10/2021 1:52 PM Coronary artery Res ults for this PANEL SCOW HAND disease involving procedure are in coronary bypass the results graft of [place] section. heart without angina pectoris Coronary artery disease involving [place] coronary artery of [place] heart without angina pectoris documented in this encounter Results (ABNORMAL) Basic metabolic panel (09/10/2021 1:52 PM SCOW HAND) [facility] gist Method Time Signature Sodium 142 133 - 144 09/10/2021 LABORATORY mmol/L 2:14 PM SCOW HAND Potassium 5.1 3.4 - 5.3 09/10/2021 LABORATORY mmol/L 2:14 PM SCOW HAND Chloride 114 (H) 94 - 109 09/10/2021 LABORATORY mmol/L 2:14 PM SCOW HAND Carbon Dioxide 26 20 - 32 09/10/2021 LABORATORY (CO2) mmol/L 2:14 PM SCOW HAND Anion Gap 2 (L) 3 - 14 09/10/2021 LABORATORY mmol/L 2:14 PM SCOW HAND Urea Nitrogen 49 (H) 7 - 30 09/10/2021 LABORATORY mg/dL 2:14 PM SCOW HAND Creatinine 1.27 (H) 0.66 - 09/10/2021 LABORATORY 1.25 mg/dL 2:14 PM SCOW HAND Calcium 8.9 8.5 - 10.1 09/10/2021 LABORATORY mg/dL 2:14 PM SCOW HAND Glucose 85 70 - 99 09/10/2021 LABORATORY mg/dL 2:14 PM SCOW HAND GFR Estimate 60 (L) >60 09/10/2021 LABORATORY mL/min/1.7 2:14 PM SCOW HAND 3m2 Comment: Effective July 30, 2021 eGF Rcr in adults is calculated using the 2020 CKD-EPI creatinine equation which includ es age and gender (Prateek et al., NEJ, DOI: 10.1056/WXFEzc3527165) Specimen Anatomical Collection Method / Collection Time Recei shyla Time (Source) Location / Volume Laterality Blood STRUCTURE OF RIGHT Venipuncture / 09/10/2021 1:52 02/0 08/2021 1:52 UPPER LIMB / Unknown PM SCOW HAND PM SCOW HAND Unknown Giuliana Gomez APRN WELL SITE DRILLING ENGINEER LAB - BLOOD ORDERABLES Performing Organization Address City/State/ZIP Code Phon [place] [address] Care [address] Lab (1st floor, no room number) documented in this encounter Visit Diagnoses Diagnosis Coronary artery disease involving bray ry bypass graft of [place] heart without angina pectoris Coronary artery disease involving [place] coronary artery of [place] heart without angina pectoris 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 documented in this encounter Care Teams Hook Puller Relationship Specialty Start Date End Date Anatoliy Jackson, PCP - General 05/14/12 Heath More PCP - Internal Medicine INTERNAL MEDICINE - 01/06/14 MD Andreas ENDOCRINOLOGY, DIABETES ENDO[facility]INE [facility] [address] [place] [phone] Peter Gipson PCP - Urology 04/02/15 MD Jordan [facility] [address] [facility] [address] [place] [address] Peter Mcmullen Assigned Musculoskeletal 06/01/20 MD Mahendra Provider [address] [place], [place] [phone] Giuliana Gomez Assigned Heart and 06/30/21 A, RUBBER VULCANIZING MACHINE OPERATOR WELL SITE DRILLING ENGINEER Vascular Provider [address] [place] [address] Giuliana Gomez Nurse Practitioner Cardiovascular Disease 2 A, RUBBER VULCANIZING MACHINE OPERATOR WELL SITE DRILLING ENGINEER [address] [place] [address] Fidencio Solis MD MD Cardiovascular Disease 08/21/[address] [place] [address] documented as of this encounter
--- OUTSIDE RECORDS SUMMARY | 2022-05-02 12:25 | XMS_ITS | Encounter Summary ---
:1950 Author Organization [place] Address [address] [facility] [place] [address] Care Team Providers Name Role Phone Anatoliy Jackson MD Primary Care Provider Heath More MD Unavailable Peter Gipson MD Unavailable Peter Mcmullen MD Unavailable Fidencio Solis MD Unavailable Reason for Visit Diagnostic Imaging NM (Routine) - Pending Review Specialty Diagnoses / Procedures Referred By Contact Refer red To Contact Diagnoses NSVT (nonsustained ventricular tachycardia) S/P CABG (coronary artery bypass graft) Fidencio Solis MD Procedures NM Lexiscan stress test (nuc card) [address] [place] [address] Referral ID Status Reason Start Date Expiration Date Visits V isits Requested Authorized [id number] Pending 06/12/2021 06/12/2022 5 5 Review Encounter Details Date Type Department Care Team Description 06/24/2021 Hospital Encounter [facility] Fidencio Solis MD [facility] [address], [address] [place] [address] [place] [phone] Social History Tobacco Use Types Packs/Day Years [...] been in contact with No / Unsure 06/24/2021 8:35 AM 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 documented as of this encounter Medications at Time of Discharge Medication Sig Dispensed Refills Start Date End Date acetaminophen (TYLENOL) Take 2 tablets (650 40 tablet 0 325 MG mg) by mouth every 4 tabletIndications: S/P hours as needed for CABG (coronary artery mild pain bypass graft) Continuous Blood Gluc 0 Sensor (DEXCOM G6 SENSOR) MISC cyanocobalamin (VITAMIN Take 1,000 mcg by 0 B-12) 1000 MCG tablet mouth daily gabapentin (NEURONTIN) Take 1 capsule (300 0 [...] on right knee and wrist) Topical cream melatonin 3 MG CAPS Take 10 mg [...] 1 capsule by 0 mouth every morning aspirin (ASA) 81 MG 4 tablets (324 mg) by 30 tablet 0 04/2506/27/2021 chewable Oral or NG Tube route tabletIndications: S/P daily CABG (coronary artery bypass graft) carvedilol (COREG) 6.25 Take 1 tablet (6.25 180 tablet 1 07/17/2021 MG tabletIndications: mg) by mouth 2 times Essential hypertension daily (with meals) cloNIDine (CATAPRES) Take 1 tablet (0.1 180 tablet 0 021 08/22/2021 0.1 MG mg) by mouth 2 times tabletIndications: S/P daily CABG (coronary artery bypass graft) ferrous sulfate 140 (45 Take 1 tablet (140 30 tablet 1 04/1009/10/2021 Fe) MG TBCR CR mg) by mouth daily tabletIndications: S/P CABG (coronary artery bypass graft) hydrALAZINE Take 1 tablet (25 mg) 20 tablet 1 05/07/2021 (APRESOLINE) 25 MG by mouth daily as tabletIndications: S/P needed (for blood CABG (coronary artery pressure >170 mmHg) bypass graft) hydrALAZINE Take 2 tablets (100 540 tablet 0 05/17/2021 12/0 08/2020 (APRESOLINE) 50 MG mg) by mouth 3 times tabletIndications: S/P daily CABG (coronary artery bypass graft) insulin glargine Inject 55 Units 0 05/01/2021 (LANTUS PEN) 100 Subcutaneous At UNIT/ML penIndications: Bedtime Type 2 diabetes mellitus with other circulatory complication, with long-term current use of insulin (H) insulin lispro 1 unit insulin for 5 carb units plus sliding scale a s below: 0 04/25/2021 10/14/2021 (HUMALOG) 100 UNIT/ML For Pre-Meal BG 150 - 199 give 2 unit. vialIndications: Type 2 For Pre-Meal BG 200 - 249 give 4 units. diabetes mellitus with For Pre-Meal BG 250 - 299 give 6 units. other circulatory For Pre-Meal BG 300 - 349 give 8 units. complication, with For Pre-Meal BG greater than 350 - give 10 units. long-term current use of insulin (H) isosorbide mononitrate Take 1 tablet (30 mg) 90 tablet 0 07/17/2021 (IMDUR) 30 MG 24 hr by mouth daily tabletIndications: S/P CABG (coronary artery bypass graft) lisinopril (ZESTRIL) 20 Take 1 tablet (20 mg) 90 tablet 3 1 08/12/2020 06/27/2021 MG tabletIndications: by mouth daily Essential hypertension rosuvastatin (CRESTOR) Take 1 tablet (40 mg) 90 tablet 3 10/17/2021 40 MG by mouth every tabletIndications: evening Coronary artery disease involving [place] coronary artery of [place] heart without angina pectoris, Hyperlipidemia LDL goal <70, S/P coronary artery stent placement documented as of this encounter Plan of Treatment Upcoming Encounters Date Type Specialty Care Team Description 05/15/2022 Hospital Encounter Surgery Singh Torres MD [facility] [address] [place] [address] (Wo rk) 05/15/2022 Surgery Surgery Neo Torres MD BLEPHAROPLASTY BILATERAL [facility], INTERNAL & SURGEONS [facility] PTOSIS REPAIR BILATERAL [address] [place] [address] (Wo rk) 06/25/2022 Ancillary Procedure Cardiology Kirk Silver MD [address] [place] [phone] (Wo rk) Scheduled Procedures Name Priority Associated [...] Name Priority Date/Time Associated Diagnosis Comme nts NM MPI WITH Routine 06/24/2021 11:39 AM NSVT (nonsustained Re sults for this [place] OUTSIDE FOOD SERVER ventricular procedure are i n tachycardia) (H) the results S/P CABG (coronary section. artery bypass graft) documented in this encounter Results NM Lexiscan stress test (nuc card) (06/24/2021 11:39 AM OUTSIDE FOOD SERVER) Analysis Performed At Patho logist Time Signature Target HR 149 RADIANT Baseline 100 RADIANT Systolic BP Baseline 56 RADIANT Diastolic BP Last Stress 118 RADIANT Systolic BP Last Stress 58 RADIANT Diastolic BP Baseline HR 59 bpm RADIANT Max HR 80 RADIANT Max Predicted HR 54 % RADIANT Rate Pressure 9,440.0 RADIANT Product Left Ventricular 39 % RADIANT EF Anatomical Region Laterality Modality Chest Nuclear Medicine Specimen (Source) Anatomical Location Collection Method / Collectio n Time Received Time / Laterality Volume Narrative 06/24/2021 2:06 PM OUTSIDE FOOD SERVER ?The nuclear stress test is abnormal. ?There is a small area of mild ischemia in the basal anterior segment(s) of the left ventricle. ?Left ventricular function is moderately reduced. ?The left ventricular ejection fraction at stress is 39%. Visually LVEF appears better. ?A prior study was conducted on 12/24/2020. ?Compared to prior study dated 12/24/2020 the moderate inferior and inferolateral ischemia noted in prior st udy is not seen in present study. In present small size mild intensity bas al anterior ischemia is seen which was not noted in prior study. Stress Findings A pharmacologic stress test was performe d following a walking Lexiscan protocol using 0.4 mg of intravenous regadenoson administered over 10 seconds under the supervision of Dr. Tomy Serrano. The [facility] cent[facility] registered nurse observed typical vasodilator side effects during the stress test. ECG Baseline electrocardiogram demonstrates sinus rhythm and nonspecific ST-T abnormalities. The stress electrocardiogram was non-giacomo gnostic due to baseline ST changes. Isotope Administration Nuclear imaging was accomplished using a one day protocol with 13.32 mCi of technetium tetrofosmin injected at the completion of Lexiscan infusion and 3.8 mCi of technetium tetrofosmin at rest on 06/24/2021. Nuclear Study Quality The senior quality manager images demonstrate d iaphragmatic attenuation. Final image quality is satisfactory. Perfusion Defect The nuclear stress test is abnormal. The re is a small area of mild ischemia in the basal anterior segment(s) of the left ventricle. The left ventricular ejection fraction at stress is 39%. Left ventricu lar function is moderately reduced. TID is absent. Nuclear Prior Study A prior study was conducted on 12/24/2020 . Wall Motion Stress Summed Score: 1 Percent Normal: 1.47% Mild count reduction in the following se gments: basal anterior. All other segments are normal. Wall Motion Resting Summed Score: 1 Percent Normal: 1.47% Mild count reduction in the following se gments: basal inferior. All other segments are normal. Perfusion Scores: SRS Score: 1 Percentag e Abnormal: 1.47% Perfusion Scores: SSS Score: 1 Percentag e Abnormal: 1.47% Perfusion Scores: SDS Score: 0 Percentag e Abnormal: 0.00% Fidencio Solis MD IMG NM ORDERABLES documented in this encounter Visit Diagnoses Not on filedocumented in this encounter Care Teams Boat Dispatcher Relationship Specialty Start Date End Date Anatoliy Jackson PCP - General 05/14/12 Heath More PCP - Internal Medicine INTERNAL MEDICINE - 01/06/14 MD Andreas ENDOCRINOLOGY, ENDO[facility]INE [facility] [address] [place] [phone] Peter Gipson PCP - Urology 04/02/15 MD Jordan [facility] [address] [facility] [address] [place], [place] [phone] Peter Mcmullen Assigned Musculoskeletal 06/01/20 MD Mahendra Provider [address] [place], [place] [address] Fidencio Solis MD Assigned Heart and 06/16/21 06/29/21 [address], Vascular Provider [address] [place] [address] documented as of this encounter
--- OUTSIDE RECORDS SUMMARY | 2022-05-02 12:25 | XMS_ITS | Encounter Summary ---
:1950 Author Organization [place] Address [address] 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 documented as of this encounter Plan of Treatment Upcoming Encounters Date Type Specialty Care Team Description 05/15/2022 Hospital Encounter Surgery Singh Torres MD [facility] [address] [place] [address] (Wo rk) 05/15/2022 Surgery Surgery Neo Torres MD BLEPHAROPLASTY BILATERAL [place] [facility] U[facility] L IDS, INTERNAL & [facility]GE[facility] PTOSIS REPAIR BILATERAL [address] [place] [address] (Wo rk) 06/25/2022 Ancillary Procedure Cardiology Kirk Silver MD [address] [place], [place] [address] (Wo rk) Scheduled Procedures Name Priority Associated [...] Name Priority Date/Time Associated Diagnosis Comme nts COVID-19 VIRUS Routine 06/30/2021 11:44 AM Encounter for Resul ts for this (CORONAVIRUS) BY MEETING SPECIALIST screening for other proc edure are in PCR viral diseases the results section. documented in this encounter Results Asymptomatic COVID-19 Virus (Coronavirus) by PCR Nose (06/30/2021 11:44 AM MEETING SPECIALIST) [facility] Method Time Signature SARS CoV2 PCR Negative Negative, 07/01/2021 [facility] Testing sent to 2:56 PM MEETING SPECIALIST LABORATORY reference lab. Results will be returned via unsolicited result Comment: NEGATIVE: SARS-CoV-2 (COVID-19) RNA not detected, presumed negative. Specimen Anatomical Collection Method Collection Time Receive d Time (Source) Location / / Volume Laterality Swab NASAL STRUCTURE / Non-blood 06/30/2021 11:44 2020 Unknown Collection / AM MEETING SPECIALIST 11:45 AM MEETING SPECIALIST Unknown Narrative [facility] - 07/01/2021 2:[address] Testing was performed using the Aptima SARS-CoV-2 Assay on the [employer] Instrument System. Additional in formation about this Emergency Use Authorization (EUA) assay can be found via the Lab Guide. This test should be ordered for t he detection of SARS-CoV-2 in individuals who meet SARS-CoV-2 clinical and/or epidemiological criteria. Test performance is unknown in asymptomatic patients. This test is for in vitro diagnostic use unde r the FDA EUA for laboratories certified under CLIA to per form high complexity testing. This test has not been FDA cleared or ap proved. A negative result does not rule out the presence of PCR in hibitors in the specimen or target RNA in concentration below the li ayanna of detection for the assay. The possibility of a false negati ve should be considered if the patient's recent exposure or clinica l presentation suggests COVID-19. This test was validated by the [facility] Infectious Diseases Diagnostic [facility]. This lab oratory is certified under the Clinical Laboratory Improvement Amen dments of 1987 (CLIA-88) as qualified to perform high complexity lab oratory testing. Giuliana Gomez APRN, CNP LAB - MICRO GENERAL ORDER [place] Performing Organization Address City/State/ZIP Code Phon e Number [facility] [place] [phone] Diag. 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 documented in this encounter Care Teams Wastewater Engineer Relationship Specialty Start Date End Date Anatoliy Jackson MD PCP - General 05/14/12 Heath More PCP - Internal Medicine INTERNAL MEDICINE - 01/06/14 MD Andreas END[facility]CR[facility], [facility] [address] [place] [phone] Peter Gipson PCP - Urology 04/02/15 MD Jordan [facility] [address] [place] [address] [address] [place], [place] [phone] Peter Mcmullen Assigned Musculoskeletal 06/01/20 MD Mahendra Provider [facility] [address] [place], [place] [address] Giuliana Gomez Assigned Heart and 06/30/21 A, FINANCIAL AID COUNSELOR WEB SITE PROJECT MANAGER Vascular Provider [address] [place] [address] documented as of this encounter
--- OUTSIDE RECORDS SUMMARY | 2022-05-02 12:25 | XMS_ITS | Encounter Summary ---
:1950 Author Organization [place] Address [address] [facility] 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 documented as of this encounter Miscellaneous Notes Telephone Encounter - Laureen Emerson RN - 06/28/2021 9:52 AM CST Call received from pt to review recent episode of dizziness today. BP at 9:30AM 97/46, HR 64 BP at 10:00AM 109/51, HR 63 Meds taken at 7:30 AM today: Lisinopril 20mg - forgot to cut in half ( was suppose to reduce to 10mg BID) Coreg 6.25 mg Hydralazine 100mg Clonidine 0.1mg Isosorbide 30mg Pt reports that he has intermittent LH that does not seem to be associated with any particular activity. Pt reports that he does not feel the lightheadedness directly after rising form a seated position but normally after he has been moving for a couple minutes after rising. This is self limiting. He stops to rest and it dissipates. Pt reports that he has had it previously at rest. Routing to provider for review. Wayne Emerson RN, BSN. 06/28/21 11:49 AM ASSEMBLER documented in this encounter Plan of Treatment Upcoming Encounters Date Type Specialty Care Team Description 05/15/2022 Hospital Encounter Surgery Singh Torres MD [facility] [address] [place] [address] (Rosalva rk) 05/15/2022 Surgery Surgery Neo Torres MD BLEPHAROPLASTY BILATERAL [facility] [facility]S, INTERNAL & SURGEONS [facility] PTOSIS REPAIR BILATERAL [address] [place] [address] (Wo rk) 06/25/2022 Ancillary Procedure Cardiology Kirk Silver MD [address] [place] [address] (Wo rk) [...] on filedocumented in this encounter Care Teams Compliance Coordinator Relationship Specialty Start Date End Date Anatoliy Jackson, PCP - General 05/14/12 Heath More PCP - Internal Medicine INTERNAL MEDICINE - 01/06/14 MD Andreas ENDOCRINOLOG[facility], [facility] [address] [place] [phone] Peter Gipson PCP - Urology 04/02/15 MD Jordan [facility] [address] [facility] [address] [place] [address] Peter Mcmullen Assigned Musculoskeletal 06/01/20 MD Mahendra Provider [address] [place], [place] [address] Fidencio Solis MD Assigned Heart and 06/16/21 06/29/21 [address], Vascular Provider [address] [place] [address] documented as of this encounter
--- OUTSIDE RECORDS SUMMARY | 2022-05-02 12:25 | XMS_ITS | Encounter Summary ---
:1950 Author Organization [place] Address [address] [place] [address] Care Team Providers Name Role Phone Anatoliy Jackson MD Primary Care Provider Heath More MD Unavailable Peter Gipson MD Unavailable Peter Mcmullen MD Unavailable Fidencio Solis MD Unavailable Reason for Referral Diagnostic Imaging XR (Routine) - Pending Review Specialty Diagnoses / Procedures Referred By Contact Refer red To Contact Diagnoses Pleural effusion Fidencio Solis MD Procedures X-ray Chest 2 vws* [address] [place] [address] Referral ID Status Reason Start Date Expiration Date Visits V isits Requested Authorized [id number] Pending 06/12/2021 06/12/2022 1 1 Review E UP ARTIST APPRENTICE Reason for Visit Diagnostic Imaging XR (Routine) - Pending Review Specialty Diagnoses / Procedures Referred By Contact Refer red To Contact Diagnoses Pleural effusion Fidencio Solis MD Procedures X-ray Chest 2 vws* [address] [place] [address] Referral ID Status Reason Start Date Expiration Date Visits V isits Requested Authorized [id number] Pending 06/12/2021 06/12/2022 1 1 Review Encounter Details Date Type Department Care Team Description 06/24/2021 Hospital Encounter [facility] Fidencio Solis MD Pleural effusion [facility] 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 someone who was confirmed or suspected to [...] every tabletIndications: evening Coronary artery disease involving [place] coronary artery of [place] heart without angina pectoris, Hyperlipidemia LDL goal <70, S/P coronary artery stent placement documented as of this encounter Plan of Treatment Upcoming Encounters Date Type Specialty Care Team Description 05/15/2022 Hospital Encounter Surgery Singh Torres MD [facility] [address] [place] [address] (Wo rk) 05/15/2022 Surgery Surgery Neo Torres MD BLEPHAROPLASTY BILATERAL [place] [facility] UPPER L IDS, INTERNAL & SURGEONS PA PTOSIS REPAIR BILATERAL [address] [place] [address] (Wo rk) 06/25/2022 Ancillary Procedure Cardiology Kirk Silver MD [address] [place] [address] (Wo rk) Scheduled Procedures Name Priority Associated [...] Comme nts XR CHEST 2 VIEWS Routine 06/24/2021 1:26 PM Pleural effusion R esults for this PASTE UP ARTIST APPRENTICE procedure are i n the results section. documented in this encounter Results X-ray Chest 2 vws* (06/24/2021 1:26 PM PASTE UP ARTIST APPRENTICE) Anatomical Region Laterality Modality Chest Digital Radiography Specimen (Source) Anatomical Location Collection Method / Collectio n Time Received Time / Laterality Volume Impressions 06/24/2021 2:08 PM PASTE UP ARTIST APPRENTICE IMPRESSION: There is only a trace residual left pleural effusion. No right-sided effusion. The lungs are shane WEIR MD Narrative 06/24/2021 2:08 PM PASTE UP ARTIST APPRENTICE XR CHEST 2 VW 06/24/2021 1:26 PM ?? INDICATION: Pleural effusion COMPARISON: 04/30/2021 Procedure Note Dave Weir MD - 06/24/2021Fo rmatting of this note might be different from the original. XR CHEST 2 VW 06/24/2021 1:26 PM INDICATION: Pleural effusion COMPARISON: 04/30/2021 IMPRESSION: There is only a trace residu al left pleural effusion. No right-sided effusion. 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 documented in this encounter Care Teams Furniture Duster Relationship Specialty Start Date End Date Anatoliy Jackson, PCP - General 05/14/12 Heath More PCP - Internal Medicine INTERNAL MEDICINE - 01/06/14 MD Andreas ENDOCRINOLOGY, [email or web address] [address] [place] [phone] Peter Gipson PCP - Urology 04/02/15 MD Jordan [facility] [address] [place] [address] [address] [place], [place] [phone] Peter Mcmullen Assigned Musculoskeletal 06/01/20 MD Mahendra Provider [facility] [facility] [address] [place], [place] [address] Fidencio Solis MD Assigned Heart and 06/16/21 06/29/21 [address], Vascular Provider [facility] [address] [place] [address] documented as of this encounter
--- OUTSIDE RECORDS SUMMARY | 2022-05-02 12:25 | XMS_ITS | Encounter Summary ---
:1950 Author Organization [place] Address [address] [facility] [place] [address] Care Team Providers Name Role Phone Anatoliy [...] [address] [place] [address] Referral ID Status Reason Start Date Expiration Date Visits V isits Requested Authorized [id number] Pending 06/12/2021 06/12/2022 5 5 Review Encounter Details Date Type Department Care Team Description 06/24/2021 Hospital Encounter [facility] Fidencio Solis MD [facility] [address], [address] [place] [address] [place] [phone] Social History Tobacco Use Types Packs/Day Years [...] with No / Unsure 06/24/2021 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 who was confirmed or suspected to [...] every tabletIndications: evening Coronary artery disease involving [place] coronary artery of [place] heart without angina pectoris, Hyperlipidemia LDL goal <70, S/P coronary artery stent placement documented as of this encounter Plan of Treatment Upcoming Encounters Date Type Specialty Care Team Description 05/15/2022 Hospital Encounter Surgery Singh Torres MD [facility] [address] [place] [address] (Wo rk) 05/15/2022 Surgery Surgery Neo Torres MD BLEPHAROPLASTY BILATERAL [facility] [facility] UPPER L IDS, INTERNAL & SURGEONS PA PTOSIS REPAIR BILATERAL [address] [place] [address] (Wo rk) 06/25/2022 Ancillary Procedure Cardiology Kirk Silver MD [address] [place] [address] (Wo rk) Scheduled Procedures Name Priority Associated [...] NSVT (nonsustained Re sults for this LEXISCAN UTILITY WORKER PRODUCTION ventricular procedure are i n tachycardia) (H) the results S/P CABG (coronary section. artery bypass graft) documented in this encounter Results NM Lexiscan stress test (nuc card) (06/24/2021 11:39 AM UTILITY WORKER PRODUCTION) Analysis Performed At Patho logist Time Signature [...] / Laterality Volume Narrative 06/24/2021 2:06 PM UTILITY WORKER PRODUCTION ?The nuclear stress test is abnormal. ?There [...] the supervision of Dr. Tomy Serrano. [facility] observed typical vasodilator side effects [...] rest on 06/24/2021. Nuclear Study Quality The software quality manager images demonstrate d iaphragmatic attenuation. [...] on filedocumented in this encounter Care Teams Digital Media Planner Relationship Specialty Start Date End Date Anatoliy Jackson PCP - General 05/14/12 Heath More PCP - Internal Medicine INTERNAL MEDICINE - 01/06/14 MD Andreas ENDOCRINOLOGY, [facility] [address] [place] [address] Peter Gipson PCP - Urology 04/02/15 MD Jordan [facility] [address] [facility] [address] [place], [place] [phone] Peter Mcmullen Assigned Musculoskeletal 06/01/20 MD Mahendra Provider [address] [place], [place] [address] Fidencio Solis MD Assigned Heart and 06/16/21 06/29/21 [address], Vascular Provider [address] [place] [address] documented as of this encounter
--- OUTSIDE RECORDS SUMMARY | 2022-05-02 12:25 | XMS_ITS | Encounter Summary ---
:1950 Author Organization [place] Address [address] [facility] 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 documented as of this encounter Miscellaneous Notes Telephone Encounter - Laureen Emerson RN - 07/01/2021 3:55 PM CST Called patient to review coronary angiogram/cath prep instructions. Patient is scheduled for a Left heart cath/coronary angiogram at [facility], on date07/03/21. Checkin time is at 0830AM and procedure time is at 1030AM. Advised patient not eat or drink after midnight on 07/02/21 . Patient is not taking a diuretic. Advised to discuss insulin dosing with PMD. Pt is on an insulin pump and has reviewed with PMD - pt has instructions to follow regarding how to activate exercise mode in order to prevent insulin administration prior to the procedure. Patient is not taking Metformin or other diabetic medications. Patient is not taking an anticoagulant. Advised to take 325mg of Aspirin the morning of the procedure. Advised to take their other daily medications the morning of the procedure with small sips of water. Verified patient does NOT have an allergy to contrast dye. COVID test completed 06/30/21 Verified patient has a responsible adult to drive them home from the hospital and stay with them for24 hours after the procedure. Confirmed follow-up appointment scheduled 07/17/21 date at 10:00AM time with Fadi Gomez CNP provider at the [facility]. Patient had no questions about their prep instructions. Annita KELLY [facility] Wayne Emerson RN, BSN. 07/01/21 4:13 PM ----- Message from Roxanne Ahn sent at 06/27/2021 3:29 PM MUNICIPAL SERVICES MANAGER ----- Regarding: Angio orders Angiogram Orders Location: [facility] Procedure: Left Heart Cath Diagnosis: CAD, S/P CABG, abn stress test Procedure Date: 07/03 Procedure Time: 1030 Patient Arrival Time: 0830 Ordering Project Buyer: Dr. Solis Performing Project Buyer: Dr. Duenas Cardiac Assessment Completed: Yes Date: 06/27 Provider: Fadi Pryor Pre-Procedure Labs completed: on admit Post Procedure SERAFIN appointment scheduled: Yes Date: 07/17 Provider: Fadi Pryor Patient Diabetic on Meds/Insulin: Yes Patient on Coumadin/Warfarin: No Patient on Pradaxa/Xarelto/Eliquis: No Does Patient have a history of bypass: Yes If yes, when was it done: 04/19/21 If yes, where was it done: [facility] COVID Test Scheduled: 06/30 Appointment was scheduled: Face to Face Special instructions: radial approach CIPAL SERVICES MANAGER documented in this encounter Plan of Treatment Upcoming Encounters Date Type Specialty Care Team Description 05/15/2022 Hospital Encounter Surgery Singh Torres MD [facility] [address] [place] [address] (Wo rk) 05/15/2022 Surgery Surgery Neo Torres MD BLEPHAROPLASTY BILATERAL [place] [facility] U[facility]ER L IDS, INTERNAL & SURGEONS PA PTOSIS REPAIR BILATERAL [address] [place] [address] (Wo rk) 06/25/2022 Ancillary Procedure Cardiology Kirk Silver MD [address] [place] [phone] (Wo rk) Scheduled Procedures Name Priority Associated [...] on filedocumented in this encounter Care Teams Tractor Expert Relationship Specialty Start Date End Date Anatoliy Jackson MD PCP - General 05/14/12 Heath More PCP - Internal Medicine INTERNAL MEDICINE - 01/06/14 MD Andreas ENDOCRINOLOGY, [facility] [address] [place] [phone] Peter Gipson PCP - Urology 04/02/15 MD Jordan [facility] [address] [facility] [address] [place] [address] Peter Mcmullen Assigned Musculoskeletal 06/01/20 MD Mahendra Provider [address] [place], [place] [address] Giuliana Gomez Assigned Heart and 06/30/21 A, CONTROLS ENGINEER LOOM STOP CHECKER Vascular Provider [address] [place] [phone] documented as of this encounter
--- OUTSIDE RECORDS SUMMARY | 2022-05-02 12:25 | XMS_ITS | Encounter Summary ---
:1950 Author Organization [place] Address [address] 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 documented as of this encounter Plan of Treatment Upcoming Encounters Date Type Specialty Care Team Description 05/15/2022 Hospital Encounter Surgery Singh Torres MD [facility] [address] [place] [address] (Wo rk) 05/15/2022 Surgery Surgery Neo Torres MD BLEPHAROPLASTY BILATERAL [facility] PTOSIS REPAIR BILATERAL [address] [place] [address] (Wo rk) 06/25/2022 Ancillary Procedure Cardiology Kirk Silver MD [address] [place] [phone] (Wo rk) Scheduled Procedures Name Priority Associated [...] Associated Diagnosis Comme nts BASIC METABOLIC Routine 06/24/2021 8:37 AM Essential Result s for this PANEL TRACK WORKER hypertension procedure are i n the results section. documented in this encounter Results (ABNORMAL) Basic metabolic panel (06/24/2021 8:37 AM TRACK WORKER) Analysis Performed At Patho logist Time Signature Sodium 143 133 - 144 06/24/2021 LABORATORY mmol/L 9:21 AM TRACK WORKER Potassium 4.7 3.4 - 5.3 06/24/2021 LABORATORY mmol/L 9:21 AM TRACK WORKER Chloride 110 (H) 94 - 109 06/24/2021 LABORATORY mmol/L 9:21 AM TRACK WORKER Carbon Dioxide 28 20 - 32 06/24/2021 LABORATORY (CO2) mmol/L 9:21 AM TRACK WORKER Anion Gap 5 3 - 14 06/24/2021 LABORATORY mmol/L 9:21 AM TRACK WORKER Urea Nitrogen 27 7 - 30 06/24/2021 LABORATORY mg/dL 9:21 AM TRACK WORKER Creatinine 1.23 0.66 - 06/24/2021 LABORATORY 1.25 mg/dL 9:21 AM TRACK WORKER Calcium 9.0 8.5 - 10.1 06/24/2021 LABORATORY mg/dL 9:21 AM TRACK WORKER Glucose 195 (H) 70 - 99 06/24/2021 LABORATORY mg/dL 9:21 AM TRACK WORKER GFR Estimate 59 (L) >60 06/24/2021 LABORATORY mL/min/1.7 9:21 AM TRACK WORKER 3m2 Comment: As of February 17, 2021, eGFR is ca lculated by the CKD-EPI creatinine equation, without race adjustment. eGFR can be inf luenced by muscle mass, exercise, and diet. The reported eGFR is an estimation only and is only applicable if the renal function is stable. Specimen Anatomical Collection Method / Collection Time Recei shyla Time (Source) Location / Volume Laterality Blood STRUCTURE OF RIGHT Venipuncture / 06/24/2021 8:37 06/10 8:37 UPPER LIMB / Unknown AM TRACK WORKER AM TRACK WORKER Unknown Fidencio Solis MD LAB - BLOOD ORDERABLES Performing Organization Address City/State/ZIP Code Phon e Number LABORATORY [facility] [place] [phone] Care Lab 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 documented in this encounter Care Teams Greenskeeper Head Relationship Specialty Start Date End Date Anatoliy Jackson PCP - General 05/14/12 Heath More PCP - Internal Medicine INTERNAL MEDICINE - 01/06/14 MD Andreas ENDOCRINOLOGY, ENDOCRINE CLINIC DIABETES & METABOLISM [facility] [address] [facility] [address] [place] [phone] Peter Gipson PCP - Urology 04/02/15 MD Jordan [facility] [address] [facility] [address] [place], [place] [phone] Peter Mcmullen Assigned Musculoskeletal 06/01/20 MD Mahendra Provider [facility] [facility] [address] [place], [place] [phone] Fidencio Solis MD Assigned Heart and 06/16/21 06/29/21 [address], Vascular Provider [facility] [address] [place] [phone] documented as of this encounter
--- OUTSIDE RECORDS SUMMARY | 2022-05-02 12:25 | XMS_ITS | Encounter Summary ---
:1950 Author Organization [place] Address [address] [facility] [place] [address] Care Team Providers Name Role Phone Anatoliy [...] [address] [place] [address] Referral ID Status Reason Start Date Expiration Date Visits V isits Requested Authorized [id number] Pending 06/12/2021 06/12/2022 5 5 Review Encounter Details Date Type Department Care Team Description 06/24/2021 Hospital Encounter [facility] Fidencio Solis MD [facility] [address], [address] [place] [address] [place] [phone] Social History Tobacco Use Types Packs/Day Years [...] with No / Unsure 06/24/2021 12:47 PM DIRECTOR OF ARCHITECTURE someone who was confirmed or suspected to [...] every tabletIndications: evening Coronary artery disease involving algaaciq coronary artery of algaaciq heart without angina pectoris, Hyperlipidemia LDL goal <70, S/P coronary artery stent placement documented as of this encounter Plan of Treatment Upcoming Encounters Date Type Specialty Care Team Description 05/15/2022 Hospital Encounter Surgery Singh Torres MD [facility] [address] [place] [address] (Wo rk) 05/15/2022 Surgery Surgery Neo Torres MD BLEPHAROPLASTY BILATERAL [facility] PTOSIS REPAIR BILATERAL [address] [place] [address] (Wo rk) 06/25/2022 Ancillary Procedure Cardiology Kirk Silver MD [address] [place] [phone] (Wo rk) Scheduled Procedures Name Priority Associated [...] NSVT (nonsustained Re sults for this LEXISCAN DIRECTOR OF ARCHITECTURE ventricular procedure are i n tachycardia) (H) the results S/P CABG (coronary section. artery bypass graft) documented in this encounter Results NM Lexiscan stress test (nuc card) (06/24/2021 11:39 AM DIRECTOR OF ARCHITECTURE) Analysis Performed At Patho logist Time Signature [...] / Laterality Volume Narrative 06/24/2021 2:06 PM DIRECTOR OF ARCHITECTURE ?The nuclear stress test is abnormal. ?There [...] the supervision of Dr. Tomy Serrano. The [facility] hospital[facility] registered nurse observed typical vasodilator side [...] rest on 06/24/2021. Nuclear Study Quality The quality assurance monitor final images demonstrate d iaphragmatic attenuation. Final image [...] on filedocumented in this encounter Care Teams Toe Pounder Relationship Specialty Start Date End Date Anatoliy Jackson PCP - General 05/14/12 Heath More PCP - Internal Medicine INTERNAL MEDICINE - 01/06/14 MD Andreas ENDOCRINOLOGY, ENDOCRINE CLINIC DIABETES & METABOLISM [facility] [address] [place] [phone] Peter Gipson PCP - Urology 04/02/15 MD Jordan [facility] [address] [facility] [address] [place], [place] [phone] Peter Mcmullen Assigned Musculoskeletal 06/01/20 MD Mahendra Provider [address] [place], [place] [address] Fidencio Solis MD Assigned Heart and 06/16/21 06/29/21 [address], Vascular Provider [address] [place] [address] documented as of this encounter
--- OUTSIDE RECORDS SUMMARY | 2022-05-02 12:25 | XMS_ITS | Encounter Summary ---
:1950 Author Organization [place] Address [address] [facility] [place] [address] Care Team Providers Name Role Phone Anatoliy Jackson MD Primary Care Provider Heath More MD Unavailable Peter Gipson MD Unavailable Peter Mcmullen MD Unavailable Fidencio Solis MD Unavailable Encounter Details Date Type Department Care Team Description 06/27/[address] [facility] Giuliana Gomez for Heart Clinic [place]u [place] APRN SALES DEVELOPMENT REPRESENTATIVE screening for other [address] [facility] [address] [facility] [address] [place] [phone] [place] [phone] (Wo rk) Social History Tobacco Use Types [...] with No / Unsure 06/24/2021 12:47 PM AUTOMATION TEST DEVELOPER someone who was confirmed or 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 documented as of this encounter Plan of Treatment Upcoming Encounters Date Type Specialty Care Team Description 05/15/2022 Hospital Encounter Surgery Singh Torres MD [facility] [address] [place] [address] (Wo rk) 05/15/2022 Surgery Surgery Neo Torres MD BLEPHAROPLASTY BILATERAL [place] [facility] PTOSIS REPAIR BILATERAL [address] [place] [phone] (Wo rk) 06/25/2022 Ancillary Procedure Cardiology Kirk Silver MD [address] [place] [address] (Wo rk) Scheduled Procedures Name Priority Associated Diagnoses Date/Time REPAIR, PTOSIS, BILATERAL, Dermatochalas is 05/15/2022 7:30 AM CDT WITH BILATERAL BLEPHAROPLASTY 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 REPAIR, ECTROPION, EYE, Dermatochalasis 05/15/2022 7:30 AM CDT BILATERAL 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 documented as of this encounter Results Asymptomatic COVID-19 Virus (Coronavirus) by PCR Nose (06/30/2021 11:44 AM AUTOMATION TEST DEVELOPER) [facility] Method Time Signature SARS CoV2 PCR Negative Negative, 07/01/2021 [facility] Testing sent to 2:56 PM AUTOMATION TEST DEVELOPER LABORATORY reference lab. Results will be returned via unsolicited result Comment: NEGATIVE: SARS-CoV-2 (COVID-19) RNA not detected, presumed negative. Specimen Anatomical Collection Method Collection Time Receive d Time (Source) Location / / Volume Laterality Swab NASAL STRUCTURE / Non-blood 06/30/2021 11:44 2020 Unknown Collection / AM AUTOMATION TEST DEVELOPER 11:45 AM AUTOMATION TEST DEVELOPER Unknown Narrative [facility] - 07/01/2021 2:[address] Testing was performed using the Aptima SARS-CoV-2 Assay on the [employer] Instrument System. Additional in formation about this [...] COVID-19. This test was validated by the [facility] Infectious Diseases Diagnostic Laboratory. This lab oratory is certified under the Clinical Laboratory Improvement Amen dments of 1987 (CLIA-88) as qualified to perform high complexity lab oratory testing. Giuliana Gomez APRN, CNP LAB - MICRO GENERAL ORDER [place] Performing Organization Address City/State/ZIP Code Phon e Number [facility] [place] [phone] Diag. Lab [address] [facility], [address] 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 documented in this encounter Care Teams Youth Specialist Relationship Specialty Start Date End Date Anatoliy Jackson, PCP - General 05/14/12 Heath More PCP - Internal Medicine INTERNAL MEDICINE - 01/06/14 MD Andreas ENDOCRINOLOGY, ENDOCRINE CLINIC DIABETES & METABOLISM [facility] [address] [place] [phone] Peter Gipson PCP - Urology 04/02/15 MD Jordan [facility] [address] [facility] [address] [place], [place] [phone] Peter Mcmullen Assigned Musculoskeletal 06/01/20 MD Mahendra Provider [facility] [facility] [address] [place], [place] [phone] Fidencio Solis MD Assigned Heart and 06/16/21 06/29/21 [address], Vascular Provider [facility] [address] [place] [id number] documented as of this encounter
--- OUTSIDE RECORDS SUMMARY | 2022-05-02 12:25 | XMS_ITS | Encounter Summary ---
:1950 Author Organization [facility] Address [address] [place] [address] Care Team Providers Name Role Phone Anatoliy Jackson MD Primary Care Provider Heath More MD Unavailable Peter Gipson MD Unavailable Peter Mcmullen MD Unavailable Giuliana Gomez APRN TREE CHIPPER Unavailable Reason for Visit Auth/Cert Specialty Diagnoses / Procedures Referred By Contact Refer red To Contact Med Surg Diagnoses Coronary artery disease involving coronary bypass graft of [place] heart without angina pectoris Coronary artery disease involving [place] coronary artery of [place] heart without angina pectoris S/P CABG (coronary artery bypass graft) [facility] Suit[facility] abnormal stress test [id number] Procedures Coronary Angiogram [place] [phone] Phone: Referral ID Status Reason Start Date Expiration Date Visits Requ ested Visits Authorized [id number] 1 1 Encounter Details Date Type Department Care Team Description [facility]/03[facility]21 [facility] [address] [place] [id number] Coronary artery disease involving bray ry bypass graft of [place] heart without angina pectoris; [facility] Mahendra Vega MD [address] [place] [address] Coronary artery disease involving [place] coronary artery of [place] heart without angina pectoris; Suites S/P CABG (coronary artery by pass graft); [address] Abnormal stress test; [place] Dyspnea on exer tion [id number] Social History Tobacco Use Types Packs/Day Years [...] with No / Unsure 07/03/2021 8:17 AM GAS 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 documented as of this encounter Last Filed Vital Signs Vital Sign Reading Time Taken Comments Blood Pressure 167/80 07/03/2021 1:25 PM GAS TURBINE MECHANIC Pulse 62 07/03/2021 1:25 PM GAS TURBINE MECHANIC Temperature 36.5 ??C (97.7 ??F) 07/03/2021 8:37 AM GAS TURBINE MECHANIC Respiratory Rate 16 07/03/2021 1:00 PM GAS TURBINE MECHANIC Oxygen Saturation 99% 07/03/2021 1:15 PM GAS TURBINE MECHANIC Inhaled Oxygen Concentration - - Weight 96.8 kg (213 lb 4.8 oz) 07/03/2021 8:37 AM GAS TURBINE MECHANIC Height 180.3 cm (5' 11) 07/03/2021 8:37 AM GAS TURBINE MECHANIC Body Mass Index 29.75 07/03/2021 8:37 AM GAS TURBINE MECHANIC documented in this encounter Discharge Instructions Discharge InstructionsKrystal Diaz RN - 07/03/2021 10:56 AM CST Cardiac Angiogram Discharge Instructions - Femoral After you go home: ??? Have an adult stay with you until tomorrow. ??? Drink extra fluids for 2 days. ??? You may resume your normal diet. ??? No smoking For 24 hours - due to the sedation you received: ??? Relax and take it easy. ??? Do NOT make any important or legal decisions. ??? Do NOT drive or operate machines at home or at work. ??? Do NOT drink alcohol. Care of Groin Puncture Site: ??? For the first 24 hrs - check the puncture site every 1-2 hours while awake. ??? For 2 days, when you cough, sneeze, laugh or move your bowels, hold your hand over the puncture site and press firmly. ??? Remove the bandaid after 24 hours. If there is minor oozing, apply another bandaid and remove itafter 12 hours. ??? It is normal to have a small bruise or pea size lump at the site. ??? You may shower tomorrow. Do NOT take a bath, or use a hot tub or pool for at least 3 days. Do NOT scrub the site. Do not use lotion or powder near the puncture site. Activity: For 2 days: ??? No stooping or squatting ??? Do NOT do any heavy activity such as exercise, lifting, or straining. ??? No housework, yard work or any activity that make you sweat ??? Do NOT lift more than 10 pounds Bleeding: ??? If you start bleeding from the site in your groin, lie down flat and press firmly on/above the site for 10 minutes. ??? Once bleeding stops, lay flat for 2 hours. ??? Call [facility] Clinic as soon as you can. Call 911 right away if you have heavy bleeding or bleeding that does not stop. Medicines: ??? If you are taking an antiplatelet medication such as Plavix, Brilinta or Effient, do not stop taking it until you talk to your deputy manager. ??? Take your medications, including blood thinners, unless your provider tells you not to. ??? If you have stopped any medicines, check with your provider about when to restart them. Follow Up Appointments: ??? Follow up with [facility] Heart Nurse Practitioner at [facility] Heart Clinic of patient preference in 7-10 days. Call the clinic if: ??? You have increased pain or a large or growing hard lump around the site. ??? The site is red, swollen, hot or tender. ??? Blood or fluid is draining from the site. ??? You have chills or a fever greater than 101 F (38 C). ??? Your leg feels numb, cool or changes color. ??? You have hives, a rash or unusual itching. ??? New pain in the back or belly that you cannot control with Tylenol. ??? Any questions or concerns. 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 MECHANIC documented in this encounter Medications at Time of Discharge Medication Sig Dispensed Refills Start Date End Date acetaminophen (TYLENOL) Take 2 tablets (650 40 tablet 0 325 MG mg) by mouth every 4 tabletIndications: S/P hours as needed for CABG (coronary artery mild pain bypass graft) aspirin (ASA) 325 MG Take 325 mg by mouth 0 tablet daily Continuous Blood Gluc 0 Sensor (DEXCOM G6 [...] 1 capsule by 0 mouth every morning carvedilol (COREG) 6.25 Take 1 tablet (6.25 180 tablet 1 07/17/2021 MG tabletIndications: mg) by mouth 2 times Essential hypertension daily (with meals) cloNIDine (CATAPRES) 0.1 Take 1 tablet (0.1 180 tablet 0 03/202108/22/2021 MG tabletIndications: mg) by mouth 2 times S/P CABG (coronary daily artery bypass graft) ferrous sulfate 140 (45 Take 1 tablet (140 30 tablet 1 04/1009/10/2021 Fe) MG TBCR CR mg) by mouth daily tabletIndications: S/P CABG (coronary artery bypass graft) hydrALAZINE (APRESOLINE) Take 1 tablet (25 90 tablet 0 06/1007/17/2021 25 MG tabletIndications: mg) by mouth 3 times Essential hypertension daily Take in combination with 50mg tablet for a total of 75mg three times daily. hydrALAZINE (APRESOLINE) Take 75mg (1.5 540 tablet 0 021 07/17/2021 50 MG tabletIndications: tablets) in AM, S/P CABG (coronary 100mg at 2PM and artery bypass graft) 100mg at bedtime. hydrALAZINE (APRESOLINE) Take 2 tablets (100 540 tablet 0 07/10/2021 50 MG tabletIndications: mg) by mouth 3 times S/P CABG (coronary daily artery bypass graft) insulin lispro (HUMALOG) 1 unit insulin for 5 carb un its plus sliding scale as below: 0 04/25/2021 10/14/2021 100 UNIT/ML For Pre-Meal BG 150 - [...] (H) isosorbide mononitrate Take 1 tablet (30 90 tablet 0 202007/17/2021 (IMDUR) 30 MG 24 hr mg) by mouth daily tabletIndications: S/P CABG (coronary artery bypass graft) lisinopril (ZESTRIL) 10 Take 10 mg by mouth 0 07/17/2021 MG tablet 2 times daily rosuvastatin (CRESTOR) Take 1 tablet (40 90 tablet 3 202010/17/2021 40 MG tabletIndications: mg) by mouth every Coronary artery disease evening involving [place] coronary artery of [place] heart without angina pectoris, Hyperlipidemia LDL goal <70, S/P coronary artery stent placement documented as of this encounter Progress Notes Krystal Diaz RN - 07/03/2021 1:39 PM CST Care Suites Discharge Nursing Note Patient Information Name: Nikita Anderson Age: [age] year old Discharge Education: Discharge instructions reviewed: Yes Additional education/resources provided: Patient/patient telephone services sales representative verbalizes understanding: Yes Patient discharging on new medications: N/A Medication education completed: N/A Discharge Plans: Discharge location: home Discharge ride contacted: Yes Approximate discharge time: 1345 Discharge Criteria: Discharge criteria met and vital signs stable: Yes Patient Belongs: Patient belongings returned to patient: Yes Krystal Diaz RN TURBINE MECHANIC Aliyah Bray RN - 07/03/2021 1:18 PM CST Discharge instruction is given to pt. All questions are answered. VS stable, right groin stable, no hematoma. Monitor shows SB. Denies any pain or discomfort. Pt is taking po fluids well. Anticipate 2 hours bedrest and up at 1315. Anticipate discharge later today when off bedrest and stable. Report back to shan Rice RN to continue monitoring pt. Krystal Ridley RN - 07/03/2021 11:19 AM CST Care Suites Post Procedure Note Patient Information Name: Nikita Anderson Age: [age] year old Post Procedure Time patient returned to Care Suites: 1110 Concerns/abnormal assessment: n/a If abnormal assessment, provider notified: N/A Plan/Other: Continue to merry Diaz RN TURBINE MECHANIC Krystal Diaz RN - 07/03/2021 9:29 AM CST Care Suites Admission Nursing Note Patient Information Name: Nikita Anderson Age: [age] year old Reason for admission: left heart cath Care Suites arrival time: 829 Visitor Information Name: Michaela Informed of visitor restrictions: Yes 1 visitor allowed per patient Visitor must screen negative for COVID symptoms Visitor must wear a mask Waiting rooms closed to visitors Patient Admission/Assessment Pre-procedure assessment complete: Yes If abnormal assessment/labs, provider notified: Yes NPO: Yes Medications held per instructions/orders: Yes Consent: deferred If applicable, test status: deferred Patient oriented to room: Yes Education/questions answered: Yes Discharge Planning Discharge name/phone number: Michaela [phone] Overnight post sedation caregiver: Michaela Discharge location: home Krystal Diaz RN PATIENT/VISITOR WELLNESS SCREENING Step 1 Patient Screening 1. In the last month, have you been in contact with someone who was confirmed or suspected to have Coronavirus/COVID-19? No 2. Do you have the following symptoms? Fever/Chills? No Cough? No Shortness of breath? No New loss of taste or smell? No Sore throat? No Muscle or body aches? No Headaches? No Fatigue? Yes: Vomiting or diarrhea? Yes: Step 2 Visitor Screening 1. Name of Visitor (1 visitor per patient): Michaela 2. In the last month, have you been in contact with someone who was confirmed or suspected to have Coronavirus/COVID-19? No 3. Do you have the following symptoms? Fever/Chills? No Cough? No Shortness of breath? No Skin rash? No Loss of taste or smell? No Sore throat? No Runny or stuffy nose? No Muscle or body aches? No Headaches? No Fatigue? No Vomiting or diarrhea? No If the visitor has positive symptoms, notify first line supervisor/manger Per policy, the visitor will need to leave the facility Step 3 Refer to logic grid below for actions NO SYMPTOM(S) ACTIONS: 1. Standard rooming process 2. Provider to assess per normal protocol 3. Implement precautions as needed and per guidelines POSITIVE SYMPTOM(S) If positive for ANY of the following symptoms: fever, cough, shortness of breath, rash ACTION: 1. Continue to have the patient wear a mask 2. Room patient as soon as possible 3. Don appropriate PPE when entering room 4. Provider evaluation TURBINE MECHANIC documented in this encounter Miscellaneous Notes Pre-Procedure - Mahendra Vega MD - 07/03/2021 10:22 AM CST GENERAL PRE-PROCEDURE: Written consent obtained?: Yes Risks and benefits: Risks, benefits and alternatives were discussed DC Plan: Appropriate discharge home plan in place for patients who are going home after procedure Consent given by: Patient Patient states understanding [...] data, medications, and the plan for sedation TURBINE MECHANIC documented in this encounter Plan of Treatment Upcoming Encounters Date Type Specialty Care Team Description 05/15/2022 Hospital Encounter Surgery Singh Torres MD [facility] [address] [place] [id number] (Wo rk) 05/15/2022 Surgery Surgery Neo Torres MD BLEPHAROPLASTY BILATERAL [facility] PTOSIS REPAIR BILATERAL [address] [place] [id number] (Rosalva rk) 06/25/2022 Ancillary Procedure Cardiology Kirk Silver MD [address] [place] [id number] (Wo rk) Scheduled Procedures Name Priority Associated [...] Name Priority Date/Time Associated Comments Diagnosis CV LEFT HEART CATH Routine 07/03/2021 11:02 Coronary artery Re sults for this AM GAS TURBINE MECHANIC disease involving procedure are in coronary bypass the results graft of [place] section. heart without angina pectoris Coronary artery disease involving [place] coronary artery of [place] heart without angina pectoris S/P CABG (coronary artery bypass graft) CV LEFT VENTRICULOGRAM Routine 07/03/2021 11:02 Coronary arter y Results for this AM GAS TURBINE MECHANIC disease involving procedure are in coronary bypass the results graft of [place] section. heart without angina pectoris Coronary artery disease involving [place] coronary artery of [place] heart without angina pectoris S/P CABG (coronary artery bypass graft) CV ANGIOGRAM CORONARY Routine 07/03/2021 11:02 Coronary artery Results for this GRAFT AM GAS TURBINE MECHANIC disease involving procedure are in coronary bypass the results graft of [place] section. heart without angina pectoris Coronary artery disease involving [place] coronary artery of [place] heart without angina pectoris S/P CABG (coronary artery bypass graft) CV HEART CATHETERIZATION Routine 07/03/2021 11:02 Coronary art eldon Results for this WITH POSSIBLE AM GAS TURBINE MECHANIC disease involving procedure are in INTERVENTION coronary bypass the results graft of [place] section. heart without angina pectoris Coronary artery disease involving [place] coronary artery of [place] heart without angina pectoris S/P CABG (coronary artery bypass graft) EKG 12-LEAD, TRACING STAT 07/03/2021 9:19 Resu lts for this ONLY AM GAS TURBINE MECHANIC procedure are i n the results section. INR STAT 07/03/2021 9:02 Results for this AM GAS TURBINE MECHANIC procedure are i n the results section. PARTIAL THROMBOPLASTIN STAT 07/03/2021 9:02 Re sults for this TIME AM GAS TURBINE MECHANIC procedure are i n the results section. BASIC METABOLIC PANEL STAT 07/03/2021 9:02 Res ults for this AM GAS TURBINE MECHANIC procedure are i n the results section. CBC WITH PLATELETS STAT 07/03/2021 9:02 Result s for this AM GAS TURBINE MECHANIC procedure are i n the results section. documented in this encounter Results CV HEART CATHETERIZATION WITH POSSIBLE INTERVENTION, CV ANGIOGRAM CORONARY GRAFT, CV LEFT VENTRICULOGRAM, CV LEFT HEART CATH (07/03/2021 11:02 AM GAS TURBINE MECHANIC) P athologist Signature Cath EF 60 % CARDIOLOGY Estimated RESULTS Anatomical Region Laterality Modality Radio Fluoroscopy Specimen (Source) Anatomical Location Collection Method / Collectio n Time Received Time / Laterality Volume Narrative 07/03/2021 11:54 AM GAS TURBINE MECHANIC 1. ??No angiographic explanation seen for patient's echocardiogram findings. 2. ??The DOUGLASS? LAD and SVG? RPDA are widely patent 3. ??The SVG? OM 3 is stump occluded, with some pinching of the [place] vessel at the distal anastomosis which m ay compromise distal OM 3 flow. ?? However, this is a relatively small myoc ardial territory and would not explain patient's echocardiographic find ings. 4. ??Koi vessel CAD is otherwise unch anged from pre-CABG (03/2021) angiogram with moderate? severe mid LAD disease, ostial in-stent MIGRATION SPECIALIST of a small OM 2, and moderate distal RCA/prox imal RPDA disease. 5. ??Mildly elevated LVEDP of 18 mmHg 6. ??Basal to mid inferior hypokinesis o n ventriculogram. ??However, global LVEF is normal around 55-60% by visual e stimation Coronary Findings Diagnostic Dominance: Right Left Main: Ost LM to Mid LM lesion is 20 % stenosed. Left Anterior Descending: Mid LAD lesion is 70% stenosed. Left Circumflex: Ost Cx to Mid Cx lesion is 40% stenosed with 80% stenosed side branch in 1st Mrg. Mid Cx to Dist Cx lesion is 10% stenosed. The lesion was previously treated using a stent of unknown ty pe. First Obtuse Marginal Branch: The ve ssel is small. Second Obtuse Marginal Branch: 2nd Mrg filled by collaterals from 3rd Mrg. 2nd Mrg lesion is 100% stenosed. The lesion is chronic total occlusion. The lesion was previously treated using a stent of unknown type. Third Obtuse Marginal Branch: 3rd Mrg lesion is 60% stenosed. Right Coronary Artery: Dist RCA lesion i s 40% stenosed. Right Posterior Descending Artery: RPDA lesion is 50% stenosed. Vein Graft To RPDA: Conduit type: vein. The graft was visualized by angiography and is moderate in size. The graft exhibits minimal luminal irregularities. Vein Graft To 3rd Mrg: Conduit type: vei n. The graft was visualized by angiography. Stump occluded Origin to Dist Graft lesion is 100% stenosed. The lesion is thrombotic. DOUGLASS Graft To Mid LAD: The graft was vis ualized by angiography and is moderate in size. The graft is angiographically normal. Intervention No interventions have been documented. Left Ventricle LV end diastolic pressure is mildly elev ated. The ejection fraction is greater than 55% by visual estimate. Right Heart Pressures Left ventricular filling pressures are m ildly elevated. Plan 1. Bedrest per protocol 2. Continue medical management of CAD. 3. PCI of OM 3 could be considered in e future if patient develops symptomatic angina unresponsive to medical therapy. Otherwise, would not recommend PCI if he remains asymptomatic, as this would not be expected to improve global LV functio n, or reduce risk of mortality, RI, heart failure hospitalization, etc. 4. Further plans per patient's primary c ardiologist, Dr. Solis Comments/Patient Narrative 70-year-old man with history of CAD s/p three-vessel CABG (DOUGLASS? LAD, SVG? RPDA, SVG? OM) in 04/2021, here for coronary angiography and possible PCI due to noted reduced LVEF on post CABG echo, and mild basal anterior ischemia on MPI. Cath Procedure details No Complications - Patient tolerated pro cedure well DESCRIPTION: 1. Consent obtained with discussion of r isks. All questions were answered. 2. Sterile prep and procedure. 3. Access: Local anesthetic with lidocai neLocation with Sheaths: 4. Right Femoral Artery: A standard 18 g uage needle with Sonosite and fluoroscopic guidance was used to establish vascular access. Access was successful. A 10 cm 6 Faroese sheath was placed. 5. Diagnostic Catheters: The LMCA was successfully engaged with a 6 Fr JL 4 The RCA was successfully engaged with a 6 Fr 3DRC The SVG? OM stump was engaged with a 6 Faroese 3 DRC The SVG? RPDA was engaged with a 6 Faroese 3 DRC The DOUGLASS? LAD was engaged with a 6 Faroese CONRADO 6. Guiding Catheters: None 7. Sheath Management: Angiography of the Right common femoral artery, showing minimal PAD. The RFA sheath was removed and a 6F Angioseal was placed. 8. Estimated blood loss: < 25 ml The attending interventional cardiologis t was present and supervised all critical aspects the procedure. Wall Motion The mid anterior, basilar anterior, apic al anterior and apical inferior segments are normal. The mid inferior and basilar inferior segments are hypokinetic. Giuliana Gomez APRN TREE CHIPPER CV CARDIAC CATH ORDERABLE S EKG 12-lead, tracing only (07/03/2021 9:19 AM GAS TURBINE MECHANIC) Component Value Ref Range Test Analysis Performed Pathologis t Method Time At Signature Systolic Blood mmHg RADIOLOGY Pressure RESULTS Diastolic Blood mmHg RADIOLOGY Pressure RESULTS Ventricular Rate 58 BPM RADIOLOGY RESULTS Atrial Rate 58 BPM RADIOLOGY RESULTS UT Interval 158 ms RADIOLOGY RESULTS QRS Duration 100 ms RADIOLOGY RESULTS QT 424 ms RADIOLOGY RESULTS QTc 416 ms RADIOLOGY RESULTS P Stearns 59 degrees RADIOLOGY RESULTS R AXIS 47 degrees RADIOLOGY RESULTS T Stearns 115 degrees RADIOLOGY RESULTS Interpretation Sinus bradycardia RADIOLO GY ECG Nonspecific T wave abnormality RESULTS Abnormal ECG When compared with ECG of 28-APR-2021 16:00, No significant change was found Confirmed by MD CARLOS, DEMO S ([id number]), make up editor PÉREZ [place] ([id number]) on 07/09/2021 6:59:14 PM Specimen Anatomical Collection Method Collection Time Receive d Time (Source) Location / / Volume Laterality 07/03/2021 9:19 AM 6:59 GAS TURBINE MECHANIC PM GAS TURBINE MECHANIC Fidencio Solis MD ECG ORDERABLES Performing Organization Address City/State/ZIP Code Phon e Number RADIOLOGY RESULTS Partial thromboplastin time (07/03/2021 9:02 AM GAS TURBINE MECHANIC) P athologist Signature aPTT 30 22 - 38 07/03/2021 [facility] Seconds 9:53 AM GAS TURBINE MECHANIC Specimen Anatomical Collection Method / Collection Time Recei shyla Time (Source) Location / Volume Laterality Blood STRUCTURE OF RIGHT Venipuncture / 07/03/2021 9:02 1111/2020 9:07 UPPER LIMB / Unknown AM GAS TURBINE MECHANIC AM GAS TURBINE MECHANIC Unknown Fidencio Solis MD LAB - BLOOD ORDERABLES Performing Organization Address City/State/ZIP Code Phon e Number LABORATORY [place] [address] Care Lab [address] 1[address] floor, [address] INR (07/03/2021 9:02 AM GAS TURBINE MECHANIC) P athologist Signature INR 1.07 0.85 - 1.15 07/03/2021 LABORATORY 9:52 AM GAS TURBINE MECHANIC Specimen Anatomical Collection Method / Collection Time Recei shyla Time (Source) Location / Volume Laterality Blood STRUCTURE OF RIGHT Venipuncture / 07/03/2021 9:02 06/11 9:07 UPPER LIMB / Unknown AM GAS TURBINE MECHANIC AM GAS TURBINE MECHANIC Unknown Fidencio Solis MD LAB - BLOOD ORDERABLES Performing Organization Address City/[facility]/ZIP Code Phon e Number LABORATORY [place] [address] Care Lab [address] 1[address], Room [address]B (ABNORMAL) CBC with platelets (07/03/2021 9:02 AM GAS TURBINE MECHANIC) Patholo gist Method Time Signature WBC Count 6.4 4.0 - 11.0 07/03/2021 LABORATORY 10e3/uL 9:10 AM GAS TURBINE MECHANIC RBC Count 4.07 (L) 4.40 - 07/03/2021 LABORATORY 5.90 9:10 AM GAS TURBINE MECHANIC 10e6/uL Hemoglobin 11.2 (L) 13.3 - 07/03/2021 LABORATORY 17.7 g/dL 9:10 AM GAS TURBINE MECHANIC Hematocrit 35.2 (L) 40.0 - 07/03/2021 LABORATORY 53.0 % 9:10 AM GAS TURBINE MECHANIC MCV 87 78 - 100 07/03/2021 LABORATORY fL 9:10 AM GAS TURBINE MECHANIC MCH 27.5 26.5 - 07/03/2021 LABORATORY 33.0 pg 9:10 AM GAS TURBINE MECHANIC MCHC 31.8 31.5 - 07/03/2021 LABORATORY 36.5 g/dL 9:10 AM GAS TURBINE MECHANIC RDW 13.3 10.0 - 07/03/2021 LABORATORY 15.0 % 9:10 AM GAS TURBINE MECHANIC Platelet Count 190 150 - 450 07/03/2021 LABORATORY 10e3/uL 9:10 AM GAS TURBINE MECHANIC Specimen Anatomical Collection Method / Collection Time Recei shyla Time (Source) Location / Volume Laterality Blood STRUCTURE OF RIGHT Venipuncture / 07/03/2021 9:02 06/11 9:07 UPPER LIMB / Unknown AM GAS TURBINE MECHANIC AM GAS TURBINE MECHANIC Unknown Fidencio Solis MD LAB - BLOOD ORDERABLES Performing Organization Address City/State/ZIP Code [place] [address] [phone] [facility] Lab [address] 1st floor, Room [address]B (ABNORMAL) Basic metabolic panel (07/03/2021 9:02 AM GAS TURBINE MECHANIC) Analysis Performed At Patho logist Time Signature Sodium 142 133 - 144 07/03/2021 LABORATORY mmol/L 9:23 AM GAS TURBINE MECHANIC Potassium 4.6 3.4 - 5.3 07/03/2021 LABORATORY mmol/L 9:23 AM GAS TURBINE MECHANIC Chloride 110 (H) 94 - 109 07/03/2021 LABORATORY mmol/L 9:23 AM GAS TURBINE MECHANIC Carbon Dioxide 27 20 - 32 07/03/2021 LABORATORY (CO2) mmol/L 9:23 AM GAS TURBINE MECHANIC Anion Gap 5 3 - 14 07/03/2021 LABORATORY mmol/L 9:23 AM GAS TURBINE MECHANIC Urea Nitrogen 24 7 - 30 07/03/2021 LABORATORY mg/dL 9:23 AM GAS TURBINE MECHANIC Creatinine 1.18 0.66 - 07/03/2021 LABORATORY 1.25 mg/dL 9:23 AM GAS TURBINE MECHANIC Calcium 8.7 8.5 - 10.1 07/03/2021 LABORATORY mg/dL 9:23 AM GAS TURBINE MECHANIC Glucose 157 (H) 70 - 99 07/03/2021 LABORATORY mg/dL 9:23 AM GAS TURBINE MECHANIC GFR Estimate 62 >60 07/03/2021 LABORATORY mL/min/1.7 9:23 AM GAS TURBINE MECHANIC 3m2 Comment: As of February 17, 2021, [...] Laterality Blood STRUCTURE OF RIGHT Venipuncture / 07/03/2021 9:02 1111/2020 9:07 UPPER LIMB / Unknown AM GAS TURBINE MECHANIC AM GAS TURBINE MECHANIC Unknown Fidencio Solis MD LAB - BLOOD ORDERABLES Performing Organization Address City/State/ZIP Code Phon e Number [facility] [place] [id number] Care Lab [address], Room 20B documented in this encounter Visit Diagnoses Diagnosis Coronary artery disease involving bray ry bypass graft of [place] heart without angina pectoris Coronary artery disease involving [place] coronary artery of [place] heart without angina pectoris S/P CABG (coronary artery bypass graft) Postsurgical aortocoronary bypass status Abnormal stress test Other nonspecific abnormal cardiovascula r system function study Dyspnea on exertion Other dyspnea and respiratory abnormalit y Status post coronary angiogram Other postprocedural status Coronary artery disease involving bray ry bypass graft of [place] heart without angina pectoris S/P CABG (coronary artery bypass graft) Postsurgical aortocoronary bypass status Abnormal stress test Other nonspecific abnormal cardiovascula r system function study 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 acetaminophen (TYLENOL) tablet 650 mg 650 mg, Oral, EVERY 4 HOURS PRN, mild pa in, headaches, Starting on Thu07/03/21 at 1131, May give first dose 4 hours after last scheduled dose of acetaminophen. Maximum acetaminophen dose from all sources = 75 mg/kg /day not to exceed 4 grams/day. atropine injection 0.5 mg 0.5 mg, Intravenous, ONCE PRN, other, va sovagal response (symptomatic bradycardia) to sheath pull., Starting on Thu07/03/21 at 1125, For 8 hours fentaNYL (PF) (SUBLIMAZE) injection 25 m cg 25 mcg, Intravenous, EVERY 15 MIN PRN, severe pain (7- 10), with Femoral sheath removal, Starting on Thu07/03/21 at 1125, For 2 doses , May repeat x 1 after 15 minutes. For severe pain related to pull ing the FEMORAL sheath out ONLY. Maximum total dose is 50 mcg. flumazenil (ROMAZICON) injection 0.2 mg 0.2 mg, Intravenous, EVERY 1 MIN PRN, be nzodiazepine reversal, Administer over 1 Minutes, Starting on Thu07/03/21 at 1125, For 8 hours , May repeat x 3. Notify provider [Notify Interventional Fellow/C ardiologist ([facility]) or Dewer (,)] Irritant. Use with caution in patients on benzodiazepi ne therapy. Hold: metformin and metformin containing medications on day of the procedure and for 48 hours after IV contrast given- Pa tients with acute kidney injury or severe chronic kidney disease (stage IV or stag e V; i.e., eGFR less than 30) Medication(s) to hold: Hold metformin (G LUCOPHAGE, GLUMETZA, FORTAMET, RIOMET) and metformin containing medications: (KAZAN O, METAGLIP, GLUCOVANCE, AVANDAMET, XIGDUO XR, JANUMET, JANUMET XR, JENTADUETO, PRA NDIMET, KOMBIGLYZE XR, INVOKAMET, ACTOPLUS MET, ACTOPLUS MET XR), Parameter for hold (doses,days, conditions) : Other (see admin instructions), Hours or days to hold med before/ after procedure/surgery: OTHER (for 48 hours post procedure), Nomi camilo or Procedure Date: 07/03/2021, HOLD, Starting on Thu07/03/21 at 1131, Until Thu07/03/21 a 2012, Hold metformin (GLUCOPHAGE, GLUMETZA, FORTAMET, RIOMET) and metformin containing medications: alogliptin/metformin (KAZANO), glipizide /metformin (METAGLIP), glyburide/metformin (GLUCOVANCE), rosiglitazone/metformin (A VANDAMET), dapagliflozin/metformin (XIGDUO XR), sitagliptin/metformin (JANUMET, JANUMET XR), yuliya gliptin/metformin (JENTADUETO), repaglinide/metformin (PRA NDIMET), saxagliptin/metformin (KOMBIGLYZE XR), canagliflozin/metformin (INVOKAMET) , and pioglitazone/metformin (ACTOPLUS MET, ACTOPLUS MET XR). For patients with acut e kidney injury or severe chronic kidney disease (stage IV or stage V; i.e., eGFR less than 30) If patient was on one of these medications pre-procedure, continu e to HOLD for 48 hours post-procedure if patient received IV contrast. lidocaine (LMX4) cream Topical, EVERY 1 HOUR PRN, pain, with VA D insertion, Starting on Thu07/03/21 at 1131, Apply at least 30 minutes prior to VAD insertion in divided doses as needed for size of site for insertion. MAX Dose: 2.5 g (?? of 5 g tube) Do NOT give if patient has a history of allergy to any local anesthetic or any dimitris product. Do NOT use both lidocaine intradermal/subcu taneous injection and the lidocaine cream on the same site. lidocaine 1 % 0.1-1 mL 0.1-1 mL, Other, EVERY 1 HOUR PRN, mild pain with VAD insertion, Starting on Thu07/03/21 at 1131, MAX dose 1 mL subcutan eous OR intradermal along the side of the vein in divided doses as needed for VAD insertion. Do NOT give if patient has a history of allergy to any local anesthet ic or any dimitris product. Do NOT use both lidocaine intradermal/subcutaneous injec tion and the lidocaine cream on the same site. midazolam (VERSED) injection 0.5 mg 0.5 mg, Intravenous, Administer over 2 Minutes, EVERY 5 MIN PRN, anxiety, or patient comfort with sheath removal., Starting on Thu07/03/21 at 1125, For 2 doses, May repeat once after 5 minutes if needed for a nxiety or patient comfort with the FEMORAL sheath removal. Max total dose is 1 m g. This drug may cause significant respiratory depression. Monitor respirator y status and vital signs carefully for 1 hour after each dose. naloxone (NARCAN) injection 0.2 mg 0.2 mg, Intravenous, EVERY 2 MIN PRN, op ioid reversal, Starting on Thu07/03/21 at 1125, For 8 hours, Administer intravenou s route when available and notify provider when administered. For unintended sedati on or respiratory depression if all of the below criteria are met: ~ respiratory ra te LESS than or EQUAL to 8. ~SaO2 less than 92% and or/end-tidal CO2 is greater than 50. ~ the patient is receiving an opioid, has unintended sedations assessed as LILI S (-3), and is currently not on mechanical [...] 2 MIN PRN, opioid reversal, Starting on Thu07/03/21 at 1125, For 8 hours, Administer intramuscular if an i ntravenous route is not available and notify provider when administered. For u nintended sedation or respiratory depression if all of the below criteria ar e met: ~ respiratory rate LESS than or EQUAL to 8. ~SaO2 less than 92% and or/end-tidal CO2 is greater than 50. ~ the patient is receiving an opioid , has unintended sedations assessed as RASS (-3), and is currently not on mechanical ventilation. RASS scale moderate (-3) is movement or eye opening to voice but no eye contact. Patient Monitoring Once the patient has demonstrated a response to the naloxone, c ontinue to monitor respiratory rate, depth, oxygen saturati on and end-tidal CO2 (if available) every 15 minutes x 2, then every 30 minutes x 2, then every 1 hour x 1 after each naloxone dose. Consider transfer to ICU if patient respiratory parameters have not improved after 4 naloxone doses. naloxone (NARCAN) injection 0.4 mg 0.4 mg, Intravenous, EVERY 2 MIN PRN, op ioid reversal, Starting on Thu07/03/21 at 1125, For 8 hours, Administer intravenou s route when available and notify provider when administered. For unintended sedati on or respiratory depression if all of the below criteria are met: ~ respiratory rate LESS than o r EQUAL to 8. ~ SaO2 less than 92% and or/end-tidal CO2 is greater than 50. ~ th e patient is receiving an opioid, has unintended sedation assessed as RASS (-4) or (-5) and patient is currently not on mechanical ventilation. RASS scale (-4) is deep sedation with no response to voice but movement or eye op ening to physical stimulation. RASS scale (-5) is unarousable. Patient Monitoring Once the patie nt has demonstrated a response to the naloxone, continue to monitor respirat ory rate, depth, oxygen saturation and end-tidal CO2 (if available) every 15 m inutes x 2, then every 30 minutes x 2, then every 1 hour x 1 after each naloxone dose. Consider transfer to ICU if patient respiratory parameters have not improve d after 4 naloxone doses. naloxone (NARCAN) injection 0.4 mg 0.4 mg, Intramuscular, EVERY 2 MIN PRN, opioid reversal, Starting on Thu07/03/21 at 1125, For 8 hours, Administer intramuscular if an i ntravenous route is not available and notify provider when administered. For u nintended sedation or respiratory depression if all of the below criteria ar e met: ~ respiratory rate LESS than or EQUAL to 8. ~ SaO2 less sandee n 92% and or/end-tidal CO2 is greater than 50. ~ the patient is receiving an opioid , has unintended sedation assessed as RASS (-4) or (-5) and patient is currently not on mechanica l ventilation. RASS scale (-4) is deep sedation with no response to voice but mo vement or eye opening to physical stimulation. RASS scale (-5) is unarousable. Patient Monitoring Once the patient has demonstrated a response to the naloxone, c ontinue to monitor respiratory rate, depth, oxygen saturati on and end-tidal CO2 (if available) every 15 minutes x 2, then every 30 minutes x 2, then every 1 hour x 1 after each naloxone dose. Consider transfer to ICU if patient respiratory parameters have not improved after 4 naloxone doses. oxyCODONE (ROXICODONE) tablet 10 mg 10 mg, Oral, EVERY 4 HOURS PRN, other, f or pain control. Hold dose for analgesic side effects., Starting on Thu07/03/21 at 1131, Start with the lowest dose. May adjust dose by 5 mg every 4 hours as needed. Notify pr ovider to assess for uncontrolled pain or analgesic side effe cts. Hold while on a COAGULATION OPERATOR or with regular IV opioid dosing. Maximum total is 60 mg in 24 hours. oxyCODONE (ROXICODONE) tablet 5 mg 5 mg, Oral, EVERY 4 HOURS PRN, other, for pain control . Hold dose for analgesic side effects., Starting on Thu07/03/21 at 1131, Start with the lowest dose. May adjust dose by 5 mg every 4 hours as needed. Notify pr ovider to assess for uncontrolled pain or analgesic side effe cts. Hold while on a COAGULATION OPERATOR or with regular IV opioid dosing. Maximum total is 60 mg in 24 hours. sodium chloride (PF) 0.9% PF flush 3 mL 3 mL, Intracatheter, EVERY 8 HOURS, First dose on Thu07/03/21 at 1200, to lock peripheral IV dormant line sodium chloride (PF) 0.9% PF flush 3 mL 3 mL, Intracatheter, EVERY 1 MIN PRN, li ne flush, other, to ensure patency or to lock dormant line, Starting on Thu07/03/21 at 1131 sodium chloride 0.9% infusion New Bag 07/03/2021 9:03 AM GAS TURBINE MECHANIC 150 mL/hr at 150 mL/hr, Intravenous, CONTINUOUS, 150 mL/hr IV for 2 hours prior to cardiac electronic lab technician procedure, then decrease to 75 mL/hr to run throughout the procedure. Start at 0700 for inpatients. IF PATIENT IS RECEIVING RENAL DIALYSIS, RN to reduce rate of 0.9 % sodium chloride IV solution to 10 mL /hour (TKO) IV infusion to prevent fluid overload., Cardiac Pre-procedure, Starting on Thu07/03/21 at 0830, Until Thu07/03/21 at 1109 sodium chloride 0.9% infusion Rate/Dose Verify 07/03/2021 12:35 PM GAS TURBINE MECHANIC 75 mL/hr at 75 mL/hr, Intravenous, CONTINUOUS, Administer over 4 Hours, or until patient is ambulating. IF PATIENT WAS ADMITTED WITH HEART FAILURE, the RN should discuss primary cardiology team whether it is appropriate to reduce rate to10 mL/hour (TKO) in order to prevent fluid overload IF PATIENT IS RECEIVING RENAL DIALYSIS, RN to reduce rate of 0.9% sodium chloride IV solution to 10 mL /hour (TKO) to prevent fluid overload, Starting on Thu07/03/21 at 1200, Until Thu07/03/21 at 2012 documented in this encounter Active and Recently Administered Medications Times are shown in [employer] MECHANIC. Scheduled Medication Order 07/01/2021 07/02/2021 07/03/2021 sodium chloride (PF) 0.9% PF flush 3 mL 1200 (Canceled Entry - Provider: Orders Generic Provider - Comment: Automatically canceled at discontinue of medication order)2000 (Canceled Entry - Provider: Orders Generic Provider - Comment: Automatically canceled at discont 3 mL, Intracatheter, EVERY 8 HOURS, Firs t dose on Thu07/03/21 at 1200, to lock peripheral IV dormant line inue of medic ation order) Continuous Medication Order 07/01/2021 07/02/2021 07/03/2021 sodium chloride 0.9% infusion (CANCELED) 0903 (New Bag - Provider: Krystal Diaz RN) at 150 mL/hr, Intravenous, CONTINUOUS, 1 50 mL/hr IV for 2 hours prior to cardiac electronic lab technician procedure, then decrease to 75 mL/hr to run throughout the procedure. Start at 0700 for inpatients. IF PATIENT I S RECEIVING RENAL DIALYSIS, RN to reduce rate of 0.9 % sodium chloride IV solution to 10 mL /hour (TKO) IV infusion to prevent fluid overload., Cardiac Pre-procedure, Starting on Thu07/03/21 at 0830, Until Thu07/03/21 at 1109 sodium chloride 0.9% infusion 12 35 (Rate/Dose Verify - Provider: Aliyah Bray RN) at 75 mL/hr, Intravenous, CONTINUOUS, Ad product development coordinator over 4 Hours, or until patient is ambulating. IF PATIENT WAS ADMITTED WITH HEART FAILURE, the RN should discuss primary cardiology team whether it is myron ropriate to reduce rate to10 mL/hour (TK O) in order to prevent fluid overload IF PATIENT IS RECEIVING RENAL DIALYSIS, RN to reduce rate of 0.9% sodium chloride IV solution to 10 mL /hour (TKO) to preven t fluid overload, Starting on Thu07/03/21 at 1200, Until We d 07/03/21 at 2013 PRN Medication Order 07/01/2021 07/02/2021 07/03/2021 0.9% sodium chloride BOLUS Intravenous, 250 mL, ONCE PRN, other, fo r symptomatic hypotension with femoral sheath removal, Starting on Thu07/03/21 at 1125, For 8 hours, Notify provider if patient is not responsive to the initial bolus of Sodium Chloride 0.9%. acetaminophen (TYLENOL) tablet 650 mg 650 mg, Oral, EVERY 4 HOURS PRN, mild pa in, headaches, Starting on Thu07/03/21 at 1131, May give first dose 4 hours after last scheduled dose of acetaminophen. Maximum acetaminophen dose from all sources = 75 mg/kg/day not to exceed 4 grams/day. atropine injection 0.5 mg 0.5 mg, Intravenous, ONCE PRN, other, va sovagal response (symptomatic bradycardia) to sheath pull., Starting on Thu07/03/21 at 1125, For 8 hours fentaNYL (PF) (SUBLIMAZE) injection 25 mcg 25 mcg, Intravenous, EVERY 15 MIN PRN, s evere pain, with Femoral sheath removal, Starting on Thu07/03/21 at 1125, For 2 doses, May repeat x 1 after 15 minutes. For severe pain related to pulling the FE MORAL sheath out ONLY. Maximum total dose is 50 mcg. fentaNYL (PF) (SUBLIMAZE) injection (CANCELED) 1027 (Given - Provider: Yfn Anderson)1035 (Given - Provider: Yfn Anderson) ONCE PRN, Administer over 3-5 Minutes, S tarting on Thu07/03/21 at 1027, Cardiac Intra-procedure flumazenil (ROMAZICON) injection 0.2 mg 0.2 mg, Intravenous, EVERY 1 MIN PRN, be nzodiazepine reversal, Administer over 1 Minutes, Starting on Thu07/03/21 at 1125, For 8 hours, May repeat x 3. Notify provider [Notify Interventional Fellow/Car diologist ([facility]) or Dewer (,) ] Irritant. Use with caution in patients on benzodiazepine therapy. Hold: metformin and metformin containing medications on day of the procedure and for 48 hours after IV contrast given- Patients with acute kidney injury or severe chronic kidney disease (stage IV or stage V; i.e., eGFR less than 30) Medication(s) to hold: Hold metformin (G LUCOPHAGE, GLUMETZA, FORTAMET, RIOMET) and metformin containing medications: (KAZANO, METAGLIP, GLUCOVANCE, AVANDAMET, XIGDUO XR, JANUMET, JANUMET XR, JENTADUETO, PRANDIMET, KOMBIGLYZE XR, INVOKAMET, AC TOPLUS MET, ACTOPLUS MET XR), Parameter for hold (doses,days,conditions) : Other (see admin instructions), Hours or days to hold med before/after procedure/surger y: OTHER (for 48 hours post procedure), Surgery or Procedure Date: 07/03/2021, HOLD, Starting on Thu07/03/21 at 1131, Until Thu07/03/21 at 2012, Hold metformin (GLUCOPHAGE, GLUMETZA, FORTAMET, RIOMET) and metformin containing medications: a logliptin/metformin (KAZANO), glipizide/metformin (METAGLIP), glyburide/metformin (GLUCOVANCE), rosiglitazone/metformin (AVANDAMET), dapagliflozin/metformin (XIGD UO XR), sitagliptin/metformin (JANUMET, JANUMET XR), linagliptin/metformin (JENTADUETO), repaglinide/metformin (PRANDIMET), saxagliptin/metformin (KOMBIGLYZE XR), canagliflozin/metformin (INVOKAMET), an d pioglitazone/metformin (ACTOPLUS MET, ACTOPLUS MET XR). For patients with acute kidney injury or severe chronic kidney disease (stage IV or stage V; i.e., eGFR less than 30) If patient was on one of t hese medications pre-procedure, continue to HOLD for 48 hours post-procedure if patient received IV contrast. iopamidol (ISOVUE-370) solution (CANCELED) 1101 (Given - Provider: Mahendra Vega MD) ONCE PRN, Starting on Thu07/03/21 at 1101, Cardiac Intra-proced ure lidocaine (LMX4) cream Topical, EVERY 1 HOUR PRN, pain, with VA D insertion, Starting on Thu07/03/21 at 1131, Apply at least 30 minutes prior to VAD insertion in divided doses as needed for size of site for insertion. MAX Dos e: 2.5 g (?? of 5 g tube) Do NOT give if patient has a history of allergy to any local anesthetic or any dimitris product. Do NOT use both lidocaine intradermal/subcutaneous injection and the lidocaine cream on the same site. lidocaine 1 % 0.1-1 mL 0.1-1 mL, Other, EVERY 1 HOUR PRN, mild pain with VAD insertion, Starting on Thu07/03/21 at 1131, MAX dose 1 mL subcutaneous OR intradermal along the side of the vein in divided doses as needed for VAD insertion. Do NOT give if patient has a history of allergy to any local anesthetic or any dimitris product. Do NOT use both lidocaine intradermal/subcutaneous injection and the lidocaine cream on the same site. lidocaine 1 % (CANCELED) 1038 (G iven - Provider: Mahendra Vega MD) ONCE PRN, Starting on Thu07/03/21 at 1038, Cardiac Intra-proced ure midazolam (VERSED) injection 0.5 mg 0.5 mg, Intravenous, Administer over 2 M inutes, EVERY 5 MIN PRN, anxiety, or patient comfort with sheath removal., Starting on Thu07/03/21 at 1125, For 2 doses, May repeat once after 5 minutes if neede d for anxiety or patient comfort with th e FEMORAL sheath removal. Max total dose is 1 mg. This drug may cause significant respiratory depression. Monitor respiratory status and vital signs carefully for 1 hour after each dose. midazolam (VERSED) injection (CANCELED) 1027 (Given - Provider: Yfn Anderson)1035 (Given - Provider: Yfn Anderson) Administer over 2 Minutes, ONCE PRN, Sta rting on Thu07/03/21 at 1027, Cardiac Intra-procedure naloxone (NARCAN) injection 0.2 mg(Linked Group 1) 0.2 mg, Intravenous, EVERY 2 MIN PRN, op ioid reversal, Starting on Thu07/03/21 at 1125, For 8 hours, Administer intravenous route when available and notify provider when administered. For unintended se dation or respiratory depression if all of the below criteria are met: ~ respiratory rate LESS than or EQUAL to 8. ~SaO2 less than 92% and or/end-tidal CO2 is greater than 50. ~ the patient is receiving an opioid, has unintended sedations ass essed as RASS (-3), and is currently not on mechanical ventilation. RASS scale moderate (-3) is movement or eye opening to voice but no eye contact. Patient Monit oring Once the patient has demonstrated a response to the naloxone, continue to monitor respiratory rate, depth, oxygen saturation and end-tidal CO2 (if available) every 15 minutes x 2, then every 30 mi nutes x 2, then every 1 hour x 1 after e ach naloxone dose. Consider transfer to ICU if patient respiratory parameters have not improved after 4 naloxone doses. naloxone (NARCAN) injection 0.2 mg(Linked Group 1) 0.2 mg, Intramuscular, EVERY 2 MIN PRN, opioid reversal, Starting on Thu07/03/21 at 1125, For 8 hours, Administer intramuscular if an intravenous route is not available and notify provider when adminis tered. For unintended sedation or respir atory depression if all of the below criteria are met: ~ respiratory rate LESS than or EQUAL to 8. ~SaO2 less than 92% and or/end-tidal CO2 is greater than 50. ~ the patient is receiving an opioid, has unintended sedations assessed as RASS (- 3), and is currently not on mechanical ventilation. RASS scale moderate (-3) is movement or eye opening to voice but no ey e contact. Patient Monitoring Once the p atient has demonstrated a response to the naloxone, continue to monitor respiratory rate, depth, oxygen saturation and end-tidal CO2 (if available) every 15 minut es x 2, then every 30 minutes x 2, then every 1 hour x 1 after each naloxone dose. Consider transfer to ICU if patient respiratory parameters have not improved after 4 naloxone doses. naloxone (NARCAN) injection 0.4 mg(Linked Group 1) 0.4 mg, Intravenous, EVERY 2 MIN PRN, op ioid reversal, Starting on Thu07/03/21 at 1125, For 8 hours, Administer intravenous route when available and notify provider when administered. For unintended se dation or respiratory depression if all of the below criteria are met: ~ respiratory rate LESS than or EQUAL to 8. ~ SaO2 less than 92% and or/end-tidal CO2 is greater than 50. ~ the patient is receivin g an opioid, has unintended sedation ass essed as RASS (-4) or (-5) and patient is currently not on mechanical ventilation. RASS scale (-4) is deep sedation with no response to voice but movement or eye opening to physical stimulation. RASS sc jason (-5) is unarousable. Patient Monitoring Once the patient has demonstrated a response to the naloxone, continue to monitor respiratory rate, depth, oxygen satu ration and end-tidal CO2 (if available) every 15 minutes x 2, then every 30 minutes x 2, then every 1 hour x 1 after each naloxone dose. Consider transfer to ICU if patient respiratory parameters have not improved after 4 naloxone doses. naloxone (NARCAN) injection 0.4 mg(Linked Group 1) 0.4 mg, Intramuscular, EVERY 2 MIN PRN, opioid reversal, Starting on Thu07/03/21 at 1125, For 8 hours, Administer intramuscular if an intravenous route is not available and notify provider when adminis tered. For unintended sedation or respir atory depression if all of the below criteria are met: ~ respiratory rate LESS than or EQUAL to 8. ~ SaO2 less than 92% and or/end-tidal CO2 is greater than 50. ~ the patient is receiving an opioid, has unintended sedation assessed as RASS (- 4) or (-5) and patient is currently not on mechanical ventilation. RASS scale (- 4) is deep sedation with no response to vo ice but movement or eye opening to physi alli stimulation. RASS scale (-5) is unarousable. Patient Monitoring Once the patient has demonstrated a response to the naloxone, continue to monitor respiratory rate, depth, oxygen saturation and end-t idal CO2 (if available) every 15 minutes x 2, then every 30 minutes x 2, then every 1 hour x 1 after each naloxone dose. Consider transfer to ICU if patient respi ratory parameters have not improved after 4 naloxone doses. nitroGLYcerin in D5W injection (CANCELED) 1048 (Given - Provider: Mahendra Vega MD) ONCE PRN, Starting on Thu07/03/21 at 1048, Cardiac Intra-proced ure oxyCODONE (ROXICODONE) tablet 10 mg(Linked Group 2) 10 mg, Oral, EVERY 4 HOURS PRN, other, f or pain control. Hold dose for analgesic side effects., Starting on Thu07/03/21 at 1131, Start with the lowest dose. May adjust dose by 5 mg every 4 hours as nee ded. Notify provider to assess for uncon trolled pain or analgesic side effects. Hold while on a COAGULATION OPERATOR or with regular IV opioid dosing. Maximum total is 60 mg in 24 hours. oxyCODONE (ROXICODONE) tablet 5 mg(Linked Group 2) 5 mg, Oral, EVERY 4 HOURS PRN, other, fo r pain control. Hold dose for analgesic side effects., Starting on Thu07/03/21 at 1131, Start with the lowest dose. May adjust dose by 5 mg every 4 hours as need ed. Notify provider to assess for uncont rolled pain or analgesic side effects. Hold while on a COAGULATION OPERATOR or with regular IV opioid dosing. Maximum total is 60 mg in 24 hours. sodium chloride (PF) 0.9% PF flush 3 mL 3 mL, Intracatheter, EVERY 1 MIN PRN, li ne flush, other, to ensure patency or to lock dormant line, Starting on Thu07/03/21 at 1131 Linked Groups Order Group 1: naloxone (NARCAN) injection 0.2 mgJump to med 0.2 mg, Intravenous, EVERY 2 MIN PRN, op ioid reversal, Starting on Thu07/03/21 at 1125, For 8 hours
Administer intravenous route when available and notify provider when administered. For unintended sedation or respiratory d epression if all of the below criteria are met: ~ respiratory rate LESS than or EQUAL to 8. ~SaO2 less than 92% and or/end-tidal CO2 is greater than 50. ~ the patient is receivin g an opioid, has unintended sedations assessed as RASS (-3), and is currently not on mechanical ventilation. RASS scale moderate (-3) is mo vement or eye opening to voice but no ey e contact. Patient Monitoring Once the patient has demonstrated a response to the naloxone, continue to monitor respiratory rate, dept h, oxygen saturation and end-tidal CO2 ( if available) every 15 minutes x 2, then every 30 minutes x 2, then every 1 hour x 1 after each naloxone dose. Consider transfer to ICU if marcell ent respiratory parameters have not impr dwight after 4 naloxone doses.
Or naloxone (NARCAN) injection 0.4 mgJump to med 0.4 mg, Intravenous, EVERY 2 MIN PRN, op ioid reversal, Starting on Thu07/03/21 at 1125, For 8 hours
Administer intravenous route when available and notify provider when administered. For unintended sedation or respiratory d epression if all of the below criteria are met: ~ respiratory rate LESS than or EQUAL to 8. ~ SaO2 less than 92% and or/end-tidal CO2 is greater than 50. ~ the patient is receivin g an opioid, has unintended sedation assessed as RASS (-4) or (-5) and patient is currently not on mechanical ventilation. RASS scale (-4) is deep sedation with no response to voi ce but movement or eye opening to physical stimulation. RASS scale (-5) is unarousable. Patient Monitori ng Once the patient has demonstrate d a response to the naloxone, continue to monitor respiratory rate, depth, oxygen saturation and end-tidal CO2 (if available) every 15 minutes x 2, then every 30 minutes x 2, then every 1 hour x 1 a fter each naloxone dose. Consider transfer to ICU if patient respiratory parameters have not improved after 4 naloxone doses.
Or naloxone (NARCAN) injection 0.2 mgJump to med 0.2 mg, Intramuscular, EVERY 2 MIN PRN, opioid reversal, Starting on Thu07/03/21 at 1125, For 8 hours
Administer intramuscular if an intravenous route is not available and notify provider when administered. For unintended sedat ion or respiratory depression if all of the below criteria are met: ~ respiratory rate LESS than or EQUAL to 8. ~SaO2 less than 92% and or/ end-tidal CO2 is greater than 50. ~ the patient is receiving an opioid, has unintended sedations assessed as RASS (-3), and is currently not on mechanical ventilation. RASS s jackie moderate (-3) is movement or eye op ening to voice but no eye contact. Patient Monitoring Once the patient has demonstrated a response to the naloxone, continue to monito r respiratory rate, depth, oxygen satura tion and end-tidal CO2 (if available) every 15 minutes x 2, then every 30 minutes x 2, then every 1 hour x 1 after each naloxone dose. Consider transfer to ICU if patient respiratory parameters have not improved after 4 naloxone doses.
Or naloxone (NARCAN) injection 0.4 mgJump to med 0.4 mg, Intramuscular, EVERY 2 MIN PRN, opioid reversal, Starting on Thu07/03/21 at 1125, For 8 hours
Administer intramuscular if an intravenous route is not available and notify provider when administered. For unintended sedat ion or respiratory depression if all of the below criteria are met: ~ respiratory rate LESS than or EQUAL to 8. ~ SaO2 less than 92% and or/ end-tidal CO2 is greater than 50. ~ the patient is receiving an opioid, has unintended sedation assessed as RASS (-4) or (-5) and patient is currently not on mechanical ventilation. &a mp;nbsp;RASS scale (-4) is deep sedation with no response to voice but movement or eye opening to physical stimulation. RASS scale (-5) is unarousable. &a mp;nbsp;Patient Monitoring Once the patient has demonstrated a response to the naloxone, continue to monitor respiratory rate, depth, oxygen saturation and end-tidal CO2 (if available) every 15 minutes x 2, then every 30 minutes x 2, then every 1 hour x 1 after each naloxone dose. Consider transfer to ICU if patient respiratory parameters have not improved after 4 naloxone doses.
Group 2: oxyCODONE (ROXICODONE) tablet 5 mgJump to med 5 mg, Oral, EVERY 4 HOURS PRN, other, fo r pain control. Hold dose for analgesic side effects., Starting on Thu07/03/21 at 1131
Start with the lowest dose. May adjust dose by 5 mg every 4 hours as needed. Notify pr ovider to assess for uncontrolled pain or analgesic side effects. Hold while on a COAGULATION OPERATOR or with regular IV opioid dosing. Maximum total is 60 mg in 24 hours.
Or oxyCODONE (ROXICODONE) tablet 10 mgJump to med 10 mg, Oral, EVERY 4 HOURS PRN, other, f or pain control. Hold dose for analgesic side effects., Starting on Thu07/03/21 at 1131
Start with the lowest dose. May adjust dose b y 5 mg every 4 hours as needed. Notify raghu dewitt to assess for uncontrolled pain or analgesic side effects. Hold while on a COAGULATION OPERATOR or with regular IV opioid dosing. Maximum total is 60 mg in 24 hours.
documented in this encounter Care Teams Logistical Engineer Relationship Specialty Start Date End Date Anatoliy Jackson MD PCP - General 05/14/12 Heath More PCP - Internal Medicine INTERNAL MEDICINE - 01/06/14 MD Andreas ENDOCRINOLOGY, [facility] [address] [facility] [address] [place] [phone] Peter Gipson PCP - Urology 04/02/15 MD Jordan [facility] [address] [place] [address] [address] [place] [address] Peter Mcmullen Assigned Musculoskeletal 06/01/20 MD Mahendra Provider [facility] [place], [place] [id number] Giuliana Gomez Assigned Heart and 06/30/21 A, [employer] Vascular Provider [address] [place] [id number] documented as of this encounter
--- OUTSIDE RECORDS SUMMARY | 2022-05-02 12:25 | XMS_ITS | Encounter Summary ---
:1950 Author Organization [place] Address [address] [facility] 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 documented as of this encounter Plan of Treatment Upcoming Encounters Date Type Specialty Care Team Description 05/15/2022 Hospital Encounter Surgery Singh Torres MD [facility] [address] [place] [phone] (Wo rk) 05/15/2022 Surgery Surgery Neo Torres MD BLEPHAROPLASTY B[facility]AL [facility] PTOSIS REPAIR BILATERAL [address] [place] [phone] (Wo rk) 06/25/2022 Ancillary Procedure Cardiology Kirk Silver MD [address] [place] [id number] (Wo rk) Scheduled Procedures Name Priority Associated [...] on filedocumented in this encounter Care Teams Lesson Instructor Relationship Specialty Start Date End Date Anatoliy Jackson, PCP - General 05/14/12 Heath More PCP - Internal Medicine INTERNAL MEDICINE - 01/06/14 MD Andreas ENDOCRINOLOGY, [facility] [address] [place] [phone] Peter Gipson PCP - Urology 04/02/15 MD Jordan [facility] [address] [place] [id number] Peter Mcmullen Assigned Musculoskeletal 06/01/20 MD Mahendra Provider [address] [place], [place] [phone] Fidencio Solis MD Assigned Heart and 06/16/21 06/29/21 [address], Vascular Provider [address] [place], [place] [address] documented as of this encounter
--- OUTSIDE RECORDS SUMMARY | 2022-05-02 12:25 | XMS_ITS | Encounter Summary ---
:1950 Author Organization [facility] Address [address] [place] [address] Care Team Providers Name Role Phone Anatoliy Jackson MD Primary Care Provider Heath More MD Unavailable Peter Gipson MD Unavailable Peter Mcmullen MD Unavailable Giuliana Gomez APRN REFINERY SUPERINTENDENT Unavailable Reason for Visit Auth/Cert Specialty Diagnoses / Procedures Referred By Contact Refer red To Contact Med Surg Diagnoses Coronary artery disease involving coronary bypass graft of [place] heart without angina pectoris Coronary artery disease involving [place] coronary artery of [place] heart without angina pectoris S/P CABG (coronary artery bypass graft) Care Suites abnormal stress test [address] Procedures Coronary Angiogram [place] [id number] Phone: Referral ID Status Reason Start Date Expiration Date Visits Requ ested Visits Authorized [id number] 1 1 Encounter Details Date Type Department Care Team Description 07/03/2021 Surgery [facility] Mahendra Vega Coronar y Angiogram [facility] Bogdan Steward MD Care [address] [place] [address] [place] [id number] [phone] Surgery Details Date/Time Status Location OR Service Patient Class Case Case Trauma Class Type Case? 07/03/21 Posted SH HEART SH Cath Cardiology Outpatient 10:30 AM CARDIAC Lab 2 [facility] Panel 1 Procedure LRB Anes Op Region Wound Class Commen ts Coronary Angiogram N/A Conscious Sedation Heart CS, LHC/radial, Fadi ord/October to do, Nikita Gaytan on 48, arrive 0830, w ent over prep -- k r 06/27 Angiogram Coronary Graft N/A Conscious Sedation Heart Left Ventriculogram N/A Conscious Sedation Heart Left Heart Cath N/A Conscious Sedation Heart Surgeon Surgeon Role Service Panel Mahendra [...] with No / Unsure 07/03/2021 8:17 AM PUBLIC RELATIONS COORDINATOR someone who was confirmed or 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 documented as of this encounter Last Filed Vital Signs Vital Sign Reading Time Taken Comments Blood Pressure 128/64 07/03/2021 11:30 AM PUBLIC RELATIONS COORDINATOR Pulse 59 07/03/2021 11:30 AM PUBLIC RELATIONS COORDINATOR Temperature 36.5 ??C (97.7 ??F) 07/03/2021 8:37 AM PUBLIC RELATIONS COORDINATOR Respiratory Rate 16 07/03/2021 11:15 AM PUBLIC RELATIONS COORDINATOR Oxygen Saturation 95% 07/03/2021 11:30 AM PUBLIC RELATIONS COORDINATOR Inhaled Oxygen Concentration - - Weight 96.8 kg (213 lb 4.8 oz) 07/03/2021 8:37 AM PUBLIC RELATIONS COORDINATOR Height 180.3 cm (5' 11) 07/03/2021 8:37 AM PUBLIC RELATIONS COORDINATOR Body Mass Index 29.75 07/03/2021 8:37 AM PUBLIC RELATIONS COORDINATOR documented in this encounter Discharge Instructions Discharge Krystal Givens RN - 07/03/2021 10:56 AM CST Cardiac [...] lay flat for 2 hours. ??? Call [facility] Clinic as soon as you can. Call 911 right away if you have heavy bleeding or bleeding that does not stop. Medicines: ??? If you are taking an antiplatelet medication such as Plavix, Brilinta or Effient, do not stop taking it until you talk to your operations logistics analyst. ??? Take your medications, including blood thinners, unless your provider tells you not to. ??? If you have stopped any medicines, check with your provider about when to restart them. Follow Up Appointments: ??? Follow up with [facility] Heart Nurse Practitioner at [facility] Heart Clinic of patient preference in [...] with Tylenol. ??? Any questions or concerns. [facility]: [phone] [facility] (7 days a week) IC RELATIONS COORDINATOR documented in this encounter Medications at Time [...] mouth every Coronary artery disease evening involving [place] coronary artery of [place] heart without angina pectoris, Hyperlipidemia LDL goal <70, S/P coronary artery stent placement documented as of this encounter Progress Notes Krystal Diaz RN - 07/03/2021 1:39 PM CST Care Suites Discharge Nursing Note Patient Information Name: Nikita Anderson Age: [age] year old Discharge Education: Discharge instructions reviewed: Yes Additional education/resources provided: Patient/patient workforce services representative verbalizes understanding: Yes Patient discharging on new medications: N/A Medication education completed: N/A Discharge Plans: Discharge location: home Discharge ride contacted: Yes Approximate discharge time: 1345 Discharge Criteria: Discharge criteria met and vital signs stable: Yes Patient Belongs: Patient belongings returned to patient: Yes Krystal Diaz RN IC RELATIONS COORDINATOR Aliyah Bray RN - 07/03/2021 1:18 PM [...] assessment, provider notified: N/A Plan/Other[facility] K[facility] Diaz RN Krystal Ridley RN - 07/03/2021 9:29 AM CST Care [...] Yes Discharge Planning Discharge name/phone number: Michaela [phone] Overnight post sedation caregiver: Michaela Discharge location: [...] If the visitor has positive symptoms, notify airfreight loading supervisor/manger Per policy, the visitor will need [...] PPE when entering room 4. Provider evaluation IC RELATIONS COORDINATOR documented in this encounter Miscellaneous Notes Pre-Procedure [...] data, medications, and the plan for sedation IC RELATIONS COORDINATOR documented in this encounter Plan of Treatment Upcoming Encounters Date Type Specialty Care Team Description 05/15/2022 Hospital Encounter Surgery Singh Torres MD [facility] [address] [place] [id number] (Wo rk) 05/15/2022 Surgery Surgery Neo Torres MD BLEPHAROPLASTY BILATERAL [facility] PTOSIS REPAIR BILATERAL [address] [place] [id number] (Wo rk) 06/25/2022 Ancillary Procedure Cardiology Kirk Silver MD [address] [place] [id number] (Wo rk) Scheduled Procedures Name Priority Associated [...] Coronary artery Re sults for this AM PUBLIC RELATIONS COORDINATOR disease involving procedure are in coronary bypass the results graft of [place] section. heart without angina pectoris Coronary artery disease involving [place] coronary artery of [place] heart without angina pectoris S/P CABG (coronary artery bypass graft) CV LEFT VENTRICULOGRAM Routine 07/03/2021 11:02 Coronary arter y Results for this AM PUBLIC RELATIONS COORDINATOR disease involving procedure are in coronary bypass the results graft of [place] section. heart without angina pectoris Coronary artery disease involving [place] coronary artery of [place] heart without angina pectoris S/P CABG (coronary artery bypass graft) CV ANGIOGRAM CORONARY Routine 07/03/2021 11:02 Coronary artery Results for this GRAFT AM PUBLIC RELATIONS COORDINATOR disease involving procedure are in coronary bypass the results graft of [place] section. heart without angina pectoris Coronary artery disease involving [place] coronary artery of [place] heart without angina pectoris S/P CABG (coronary artery bypass graft) CV HEART CATHETERIZATION Routine 07/03/2021 11:02 Coronary art eldon Results for this WITH POSSIBLE AM PUBLIC RELATIONS COORDINATOR disease involving procedure are in INTERVENTION coronary bypass the results graft of [place] section. heart without angina pectoris Coronary artery disease involving [place] coronary artery of [place] heart without angina pectoris S/P CABG (coronary artery bypass graft) EKG 12-LEAD, TRACING STAT 07/03/2021 9:19 Resu lts for this ONLY AM PUBLIC RELATIONS COORDINATOR procedure are i n the results section. INR STAT 07/03/2021 9:02 Results for this AM PUBLIC RELATIONS COORDINATOR procedure are i n the results section. PARTIAL THROMBOPLASTIN STAT 07/03/2021 9:02 Re sults for this TIME AM PUBLIC RELATIONS COORDINATOR procedure are i n the results section. BASIC METABOLIC PANEL STAT 07/03/2021 9:02 Res ults for this AM PUBLIC RELATIONS COORDINATOR procedure are i n the results section. CBC WITH PLATELETS STAT 07/03/2021 9:02 Result s for this AM PUBLIC RELATIONS COORDINATOR procedure are i n the results section. documented in this encounter Results CV HEART CATHETERIZATION WITH POSSIBLE INTERVENTION, CV ANGIOGRAM CORONARY GRAFT, CV LEFT VENTRICULOGRAM, CV LEFT HEART CATH (07/03/2021 11:02 AM PUBLIC RELATIONS COORDINATOR) P athologist Signature Cath EF 60 % CARDIOLOGY Estimated RESULTS Anatomical Region Laterality Modality Radio Fluoroscopy Specimen (Source) Anatomical Location Collection Method / Collectio n Time Received Time / Laterality Volume Narrative 07/03/2021 11:54 AM PUBLIC RELATIONS COORDINATOR 1. ??No angiographic explanation seen for patient's echocardiogram findings. 2. ??The DOUGLASS? LAD and SVG? RPDA are widely patent 3. ??The SVG? OM 3 is stump occluded, with some pinching of the [place] vessel at the distal anastomosis which m ay compromise distal OM 3 flow. ?? However, this is a relatively small myoc ardial territory and would not explain patient's echocardiographic find ings. 4. ??[place] vessel CAD is otherwise unch anged from pre-CABG (03/2021) angiogram with moderate? 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 4. Further plans [...] Access was successful. A 10 cm 6 Danish sheath was placed. 5. Diagnostic Catheters: The LMCA was successfully engaged with a 6 Fr JL 4 The RCA was successfully engaged with a 6 Fr 3DRC The SVG? OM stump was engaged with a 6 Danish 3 DRC The SVG? RPDA was engaged with a 6 Danish 3 DRC The DOUGLASS? LAD was engaged with a 6 Danish CONRADO 6. Guiding Catheters: None 7. Sheath [...] inferior segments are hypokinetic. Giuliana Gomez APRN [facility] CV CARDIAC CATH ORDERABLE S EKG 12-lead, tracing only (07/03/2021 9:19 AM PUBLIC RELATIONS COORDINATOR) Component Value Ref Range Test Analysis Performed Pathologis t Method Time At Signature Systolic Blood mmHg RADIOLOGY Pressure RESULTS Diastolic Blood mmHg RADIOLOGY Pressure RESULTS Ventricular Rate 58 BPM RADIOLOGY RESULTS Atrial Rate 58 BPM RADIOLOGY RESULTS WI Interval 158 ms RADIOLOGY RESULTS QRS Duration 100 ms RADIOLOGY RESULTS QT 424 ms RADIOLOGY RESULTS QTc 416 ms RADIOLOGY RESULTS P [place] 59 degrees RADIOLOGY RESULTS R AXIS 47 degrees RADIOLOGY RESULTS T [place] 115 degrees RADIOLOGY RESULTS Interpretation Sinus bradycardia RADIOLO GY ECG Nonspecific T wave abnormality RESULTS Abnormal ECG When compared with ECG of 28-APR-2021 16:00, No significant change was found Confirmed by MD CARLOS, FANNY S ([id number]), acquisitions editor PÉREZ [place] ([id number]) on 07/09/2021 6:59:14 PM Specimen Anatomical Collection Method Collection Time Receive d Time (Source) Location / / Volume Laterality 07/03/2021 9:19 AM 6:59 PUBLIC RELATIONS COORDINATOR PM PUBLIC RELATIONS COORDINATOR Fidencio Solis MD ECG ORDERABLES Performing Organization Address City/State/ZIP Code Phon e Number RADIOLOGY RESULTS Partial thromboplastin time (07/03/2021 9:02 AM PUBLIC RELATIONS COORDINATOR) athologist Signature aPTT 30 22 - 38 07/03/2021 LABORATORY Seconds 9:53 AM PUBLIC RELATIONS COORDINATOR Specimen Anatomical Collection Method / Collection Time Recei shyla Time (Source) Location / Volume Laterality Blood STRUCTURE OF RIGHT Venipuncture / 07/03/2021 9:02 11/2 11/2020 9:07 UPPER LIMB / Unknown AM PUBLIC RELATIONS COORDINATOR AM PUBLIC RELATIONS COORDINATOR Unknown Fidencio Solis MD LAB - BLOOD ORDERABLES Performing Organization Address City/State/ZIP Code Phon e Number [place] [address] Care Lab [address] 1[address] floor, Room [address] INR (07/03/2021 9:02 AM PUBLIC RELATIONS COORDINATOR) athologist Signature INR 1.07 0.85 - 1.15 07/03/2021 LABORATORY 9:52 AM PUBLIC RELATIONS COORDINATOR Specimen Anatomical Collection Method / Collection Time Recei shyla Time (Source) Location / Volume Laterality Blood STRUCTURE OF RIGHT Venipuncture / 07/03/2021 9:02 11/2 11/2020 9:07 UPPER LIMB / Unknown AM PUBLIC RELATIONS COORDINATOR AM PUBLIC RELATIONS COORDINATOR Unknown Fidencio Solis MD LAB - BLOOD ORDERABLES Performing Organization Address City/State/ZIP Code Phon e Number [place]AT[place] [address] [phone] Care Lab [address] 1[address], Room [address]B (ABNORMAL) CBC with platelets (07/03/2021 9:02 AM PUBLIC RELATIONS COORDINATOR) Patholo gist Method Time Signature WBC Count 6.4 4.0 - 11.0 07/03/2021 LABORATORY 10e3/uL 9:10 AM PUBLIC RELATIONS COORDINATOR RBC Count 4.07 (L) 4.40 - 07/03/2021 LABORATORY 5.90 9:10 AM PUBLIC RELATIONS COORDINATOR 10e6/uL Hemoglobin 11.2 (L) 13.3 - 07/03/2021 LABORATORY 17.7 g/dL 9:10 AM PUBLIC RELATIONS COORDINATOR Hematocrit 35.2 (L) 40.0 - 07/03/2021 LABORATORY 53.0 % 9:10 AM PUBLIC RELATIONS COORDINATOR MCV 87 78 - 100 07/03/2021 LABORATORY fL 9:10 AM PUBLIC RELATIONS COORDINATOR MCH 27.5 26.5 - 07/03/2021 LABORATORY 33.0 pg 9:10 AM PUBLIC RELATIONS COORDINATOR MCHC 31.8 31.5 - 07/03/2021 LABORATORY 36.5 g/dL 9:10 AM PUBLIC RELATIONS COORDINATOR RDW 13.3 10.0 - 07/03/2021 LABORATORY 15.0 % 9:10 AM PUBLIC RELATIONS COORDINATOR Platelet Count 190 150 - 450 07/03/2021 LABORATORY 10e3/uL 9:10 AM PUBLIC RELATIONS COORDINATOR Specimen Anatomical Collection Method / Collection Time Recei shyla Time (Source) Location / Volume Laterality Blood STRUCTURE OF RIGHT Venipuncture / 07/03/2021 9:02 06/11 9:07 UPPER LIMB / Unknown AM PUBLIC RELATIONS COORDINATOR AM PUBLIC RELATIONS COORDINATOR Unknown Fidencio Solis MD LAB - BLOOD ORDERABLES Performing Organization Address City/State/ZIP Code Phon [place] [address] Care Lab [address] 1st floor, Room [address]B (ABNORMAL) Basic metabolic panel (07/03/2021 9:02 AM PUBLIC RELATIONS COORDINATOR) Analysis Performed At Patho logist Time Signature Sodium 142 133 - 144 07/03/2021 LABORATORY mmol/L 9:23 AM PUBLIC RELATIONS COORDINATOR Potassium 4.6 3.4 - 5.3 07/03/2021 LABORATORY mmol/L 9:23 AM PUBLIC RELATIONS COORDINATOR Chloride 110 (H) 94 - 109 07/03/2021 LABORATORY mmol/L 9:23 AM PUBLIC RELATIONS COORDINATOR Carbon Dioxide 27 20 - 32 07/03/2021 LABORATORY (CO2) mmol/L 9:23 AM PUBLIC RELATIONS COORDINATOR Anion Gap 5 3 - 14 07/03/2021 LABORATORY mmol/L 9:23 AM PUBLIC RELATIONS COORDINATOR Urea Nitrogen 24 7 - 30 07/03/2021 LABORATORY mg/dL 9:23 AM PUBLIC RELATIONS COORDINATOR Creatinine 1.18 0.66 - 07/03/2021 LABORATORY 1.25 mg/dL 9:23 AM PUBLIC RELATIONS COORDINATOR Calcium 8.7 8.5 - 10.1 07/03/2021 LABORATORY mg/dL 9:23 AM PUBLIC RELATIONS COORDINATOR Glucose 157 (H) 70 - 99 07/03/2021 LABORATORY mg/dL 9:23 AM PUBLIC RELATIONS COORDINATOR GFR Estimate 62 >60 07/03/2021 LABORATORY mL/min/1.7 9:23 AM PUBLIC RELATIONS COORDINATOR 3m2 Comment: As of February 17, 2021, [...] 06/11 9:07 UPPER LIMB / Unknown AM PUBLIC RELATIONS COORDINATOR AM PUBLIC RELATIONS COORDINATOR Unknown Fidencio Solis MD LAB - BLOOD ORDERABLES Performing Organization Address City/State/ZIP Code Phon [place] [address] Care Lab [address], [address]B documented in this encounter Visit Diagnoses Diagnosis Coronary artery disease involving bray ry bypass graft of [place] heart without angina pectoris Coronary artery disease involving [place] coronary artery of [place] heart without angina pectoris S/P CABG (coronary artery bypass graft) Postsurgical aortocoronary bypass status Abnormal stress test Other nonspecific abnormal cardiovascula r system function study Dyspnea on exertion Other dyspnea and respiratory abnormalit y Coronary artery disease involving bray ry bypass graft of [place] heart without angina pectoris S/P CABG (coronary [...] is 50 mcg. fentaNYL (PF) (SUBLIMAZE) injection Given 07/03/2021 10:35 AM PUBLIC RELATIONS COORDINATOR 50 mcg ONCE PRN, Administer over 3-5 Minutes, Starting on Thu07/03/21 at 1027, Cardiac Intra-procedure Given 07/03/2021 10:27 AM PUBLIC RELATIONS COORDINATOR 50 mcg flumazenil (ROMAZICON) injection 0.2 mg 0.2 mg, Intravenous, EVERY 1 MIN PRN, be nzodiazepine reversal, Administer over 1 Minutes, Starting on Thu07/03/21 at 1125, For 8 hours , May repeat x 3. Notify provider [Notify Interventional Fellow/C ardiologist ([facility]) or Waiter/Waitress Informal ([facility])] Irritant. Use with caution in patients on [...] patient received IV contrast. iopamidol (ISOVUE-370) solution Given 07/03/2021 11:01 AM PUBLIC RELATIONS COORDINATOR 200 mLs ONCE PRN, Starting on Thu07/03/21 at 1101, Cardiac Intra-procedure lidocaine (LMX4) cream Topical, EVERY 1 HOUR [...] on the same site. lidocaine 1 % Given 07/03/2021 10:38 AM PUBLIC RELATIONS COORDINATOR 10 mLs Righ t Groin ONCE PRN, Starting on Thu07/03/21 at 1038, Cardiac Intra-procedure midazolam (VERSED) injection 0.5 mg 0.5 mg, [...] hour after each dose. midazolam (VERSED) injection Given 07/03/2021 10:35 AM PUBLIC RELATIONS COORDINATOR 1 mg Administer over 2 Minutes, ONCE PRN, Starting on Thu07/03/21 at 1027, Cardiac Intra-procedure Given 07/03/2021 10:27 AM PUBLIC RELATIONS COORDINATOR 1 mg naloxone (NARCAN) injection 0.2 mg [...] 4 naloxone doses. nitroGLYcerin in D5W injection Given 07/03/2021 10:48 AM PUBLIC RELATIONS COORDINATOR 200 mcg ONCE PRN, Starting on Thu07/03/21 at 1048, Cardiac Intra-procedure oxyCODONE (ROXICODONE) tablet 10 mg 10 mg, Oral, EVERY 4 HOURS PRN, other, f or pain control. Hold dose for analgesic side effects., Starting on Thu07/03/21 at 1131, Start with the lowest dose. May adjust dose by 5 mg every 4 hours as needed. Notify pr ovider to assess for uncontrolled pain or analgesic side effe cts. Hold while on a MANAGER OF TRAINING AND DEVELOPMENT or with regular IV opioid dosing. Maximum [...] side effe cts. Hold while on a MANAGER OF TRAINING AND DEVELOPMENT or with regular IV opioid dosing. Maximum [...] 0.9% infusion New Bag 07/03/2021 9:03 AM PUBLIC RELATIONS COORDINATOR 150 mL/hr at 150 mL/hr, Intravenous, CONTINUOUS, 150 mL/hr IV for 2 hours prior to cardiac drop crew laborer procedure, then decrease to 75 mL/hr [...] 0.9% infusion Rate/Dose Verify 07/03/2021 12:35 PM PUBLIC RELATIONS COORDINATOR 75 mL/hr at 75 mL/hr, Intravenous, CONTINUOUS, [...] on Thu07/03/21 at 1200, Until Thu07/03/21 at 2013 documented in this encounter Active and Recently Administered Medications Times are shown in PUBLIC RELATIONS COORDINATOR. Scheduled Medication Order 07/01/2021 07/02/2021 07/03/2021 sodium [...] IV for 2 hours prior to cardiac drop crew laborer procedure, then decrease to 75 mL/hr [...] RN) at 75 mL/hr, Intravenous, CONTINUOUS, Ad housing inspectors over 4 Hours, or until patient is [...] 3. Notify provider [Notify Interventional Fellow/Car diologist ([facility]) or Waiter/Waitress Informal (,) ] Irritant. Use with caution in [...] on Thu07/03/21 at 1131, Until Thu07/03/21 at 2013, Hold metformin (GLUCOPHAGE, GLUMETZA, FORTAMET, RIOMET) and [...] analgesic side effects. Hold while on a MANAGER OF TRAINING AND DEVELOPMENT or with regular IV opioid dosing. Maximum [...] analgesic side effects. Hold while on a MANAGER OF TRAINING AND DEVELOPMENT or with regular IV opioid dosing. Maximum [...] analgesic side effects. Hold while on a MANAGER OF TRAINING AND DEVELOPMENT or with regular IV opioid dosing. Maximum [...] analgesic side effects. Hold while on a MANAGER OF TRAINING AND DEVELOPMENT or with regular IV opioid dosing. Maximum total is 60 mg in 24 hours.
documented in this encounter Care Teams Molder Helper Relationship Specialty Start Date End Date Anatoliy Jackson MD PCP - General 05/14/12 Heath More PCP - Internal Medicine INTERNAL MEDICINE - 01/06/14 MD Andreas ENDOCRINOLOGY, [facility] [address] [place] [address] [address] [place] [id number] Peter Gipson PCP - Urology 04/02/15 MD Jordan [facility] [address] [facility] [address] [place] [address] Peter Mcmullen Assigned Musculoskeletal 06/01/20 MD Mahendra Provider [facility] [address] [facility] [address] [place], [place] [id number] Giuliana Gomez Assigned Heart and 06/30/21 ACALLIE REFINERY SUPERINTENDENT Vascular Provider [address] [place] [phone] documented as of this encounter
--- OUTSIDE RECORDS SUMMARY | 2022-05-02 12:25 | XMS_ITS | Encounter Summary ---
:1950 Author Organization [facility] Address [address] [facility] [place] [address] Care Team Providers Name Role Phone Anatoliy Jackson MD Primary Care Provider Heath More MD Unavailable Peter Gipson MD Unavailable Peter Mcmullen MD Unavailable Fidencio Solis MD Unavailable Giuliana Gomez APRN [facility] Unavailable [phone] Encounter Details Date Type Department Care Team Description 06/28/2021 Telephone [facility] LETICIA fabiancircular ripsaw operator [place] [id number] [facility] [address] [place] [address] Social History Tobacco Use [...] and wine, 2 most days - none 09/28/ 2021 recently Sex Assigned at Date Recorded Male 03/12/2021 12:11 PM CDT COVID-19 Exposure Response Date Recorded In the last month, have you been in contact with No / Unsure 07/03/2021 8:17 AM 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 documented as of this encounter Miscellaneous Notes Telephone Encounter - Laureen Emerson RN - 07/08/2021 12:39 PM CST Images from the original note were not included. Fidencio Solis MD You; Giuliana Gomez APRN CNP 4 hours ago (7:57 AM) AH Results reviewed, he can change hydralazine to 100mg for the pm afternoon dose, and he should check his BPs once a day at around 5pm and call us with a log in 10 days thanks! Call placed to pt to review recommendations per Dr. Solis. Pt reports he is sending over an additional log from the weekend for review prior to reviewing previous recommendations. Reviewed with pt Dr. Solis prior recommendations. - pt to take hydralazine 75mg in AM, 100mg at afternoon dose, and 100mg at bedtime dose. - reviewed with pt that taking his BP about 2 hours after meds is most beneficial and not needing somany checks. - pt reports that he still gets intermittently light headed. Pt reports that this is not intolerable. More concerned about getting BP stable. Plan for pt to increase his afternoon and bedtime dose of hydralazine to 100mg and then continue to monitor BP - review with Fadi Jason at next OV on 07/17/2021 for further recommendations. Wayne Emerson RN, BSN. ET BED OPERATOR Telephone Encounter - Laureen Emerson RN - 07/01/2021 3:44 PM CST Images from the original note were not included. Call placed to pt to review BP readings: Pt reports that he has been logging his BP readings a couple times a day. Pt reports his morning readings are controlled 100-110's range and has had minimal incidence of dizziness (only when changing positions too fast). His afternoon / evening and bedtime readings have been ranging from 150's - 180's. Pt reports he takes his second dose of hydralazine around 3-4 PM daily and then his 3rd dose beforehe goes to sleep which can be anywhere from 10PM to 1AM depending on what he is doing. Pt reports that he had a prior script of hydralazine 25mg tablets with instructions to take 25mg when BP over 170 which is what he has been doing over the weekend. Pt reports that he has been noting his BP will improve after the extra 25mg dose. Pt is going to send a log of blood pressure readings forreview to the office. Will review once received. RECENT EVENTS: - 06/27/21 ELOINA W/Fadi Gomez DROP WIRE ALINER: change lisinopril from 20mg daily to 10mg BID due to reports of LH / DZ. Orders for angio placed. - 06/28/21 Tele encounter: pt called to report he had a lightheadedness episode and was instructed to call me should this re-occur. (see prior note) pt had BP 97/46 that AM and reports lightheadedness.Per Dr. Solis pt to reduce hydralazine to 75mg TID and decrease lisinopril to 10mg daily. - Pt now calling to reports stable AM BP readings and elevated afternoon readings over the past few days for which he has been taking PRN hydralazine when SBP elevated over 170 as was previously prescribed at this time Pt has coronary angio planned for 07/03/2021. Routing to care team to review. Wayne Emerson RN, BSN. ET BED OPERATOR Telephone Encounter - Laureen Emerson RN - 06/28/2021 12:19 PM CST Images from the original note were not included. Call placed to pt to review recommendations per Rosemary Solis: - decrease lisinopril to 10mg daily. - decrease hydralazine to 75mg TID. Pt verbalized understanding. Will place call to pt thursday to review BP readings after medication change. Wayne Emerson RN, BSN. ET BED OPERATOR Telephone Encounter - Laureen Emerson RN - 06/28/2021 11:50 AM CST Call received from pt to review recent episode of dizziness today. BP at 9:30AM 97/46, HR 64 BP at 10:00AM 109/51, HR 63 ?? Meds taken at 7:30 AM today: Lisinopril 20mg - forgot to cut in half ( was suppose to reduce to 10mg BID) Coreg 6.25 mg Hydralazine 100mg Clonidine 0.1mg Isosorbide 30mg ?? Pt reports that he has intermittent LH [...] he has had it previously at rest. ?? Scheduled for cath 07/01/2021 ELOINA W/Fadi Mannchen DROP WIRE ALINER 06/27/2021 Routing to provider for review. Wayne Emerson RN, BSN. 06/28/21 11:49 AM ?? ET BED OPERATOR documented in this encounter Plan of Treatment Upcoming Encounters Date Type Specialty Care Team Description 05/15/2022 Hospital Encounter Surgery Singh Torres MD [facility] [address] [place] [id number] (Rosalva ferreira) 05/15/2022 Surgery Surgery Neo Torres MD BLEPHAROPLASTY BILATERAL [facility] PTOSIS REPAIR BILATERAL [address] [place] [id number] (Rosalva rk) 06/25/2022 Ancillary Procedure Cardiology Kirk Silver MD [address] [place] [id number] (Rosalva rk) Scheduled Procedures Name Priority Associated [...] ptosis documented in this encounter Care Teams Claims Sorter Relationship Specialty Start Date End Date Anatoliy Jackson MD PCP - General 05/14/12 Heath More PCP - Internal Medicine INTERNAL MEDICINE - 01/06/14 MD Andreas ENDOCRINOLOGY, [facility] [address] [facility] [address] [place] [phone] Peter Gipson PCP - Urology 04/02/15 MD Jordan [facility] [address] [facility] [address] [place], [place] [phone] Peter Mcmullen Assigned Musculoskeletal 06/01/20 MD Mahendra Provider [address] [place], [place] [id number] Fidencio Solis MD Assigned Heart and 06/16/21 06/29/21 [address], Vascular Provider [address] [place] [id number] Giuliana Gomez Assigned Heart and 06/30/21 CALLIE Hernandez CNP Vascular Provider [address] [place] [id number] documented as of this encounter
--- OUTSIDE RECORDS SUMMARY | 2022-05-02 12:25 | XMS_ITS | Encounter Summary ---
:1950 Author Organization [facility] Address [address] [facility] [place] [address] Care Team Providers Name Role Phone Anatoliy Jackson MD Primary Care Provider Heath More MD Unavailable Peter Gipson MD Unavailable Peter Mcmullen MD Unavailable Fidencio Solis MD Unavailable Reason for Referral (Routine) - Pending Review Specialty Diagnoses / Procedures Referred By Contact Refer red To Contact Diagnoses Coronary artery disease involving coronary bypass graft of eek heart without angina pectoris Coronary artery disease involving eek coronary artery of eek heart without angina pectoris S/P CABG (coronary artery bypass graft) Giuliana Gomez APRN Procedures Case Request Pipe Fitter Ammonia: Coronary Angiogram RETAIL SALES LEAD [address] [facility] [address] [place] [address] Referral ID Status Reason Start Date Expiration Date Visits V isits Requested Authorized [id number] Pending 06/27/2021 06/27/2022 1 1 Review ESS AUTOMATION ENGINEER Reason for Visit Reason Comments CORE CAD Results BMP FU Cardiac testing CXR & Lexiscan Consultation (Routine) - Pending Review Specialty Diagnoses / Procedures Referred By Contact Refer red To Contact Diagnoses S/P CABG (coronary artery bypass graft) Fidencio Solis MD [address], [facility] [address] [place] [address] Referral ID Status Reason Start Date Expiration Date Visits V isits Requested Authorized [id number] Pending 06/12/2021 06/12/2022 1 1 Review Encounter Details Date Type Department Care Team Description [facility]/27[facility]21 [facility]ary artery disease involving coronary bypass graft of eek heart without angina pectoris; [facility] A, WOOD ROUTER HAND RETAIL SALES LEAD Coronary artery disease involving eek coronary artery of eek heart without angina pectoris; [facility] [address] S/P CABG (coronary artery by pass graft); [address] Essential hypertension [address] [place] [address] [place], [place] [phone] (Work) [phone] Social History Tobacco Use Types Packs/Day Years [...] with No / Unsure 06/24/2021 12:47 PM PROCESS AUTOMATION ENGINEER someone who was confirmed or 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 documented as of this encounter Last Filed Vital Signs Vital Sign Reading Time Taken Comments Blood Pressure 118/50 06/27/2021 2:05 PM PROCESS AUTOMATION ENGINEER Pulse 62 06/27/2021 2:05 PM PROCESS AUTOMATION ENGINEER Temperature - - Respiratory Rate - - Oxygen Saturation 99% 06/27/2021 2:05 PM PROCESS AUTOMATION ENGINEER Inhaled Oxygen Concentration - - Weight 97.3 kg (214 lb 8 oz) 06/27/2021 2:05 PM 208# HO ME WT PROCESS AUTOMATION ENGINEER Height 180.3 cm (5' 11) 06/27/2021 2:05 PM PROCESS AUTOMATION ENGINEER Body Mass Index 29.92 06/27/2021 2:05 PM PROCESS AUTOMATION ENGINEER documented in this encounter Patient Instructions Patient InstructionsLucretia Trent CMA - 06/27/2021 1:50 PM CST Call CORE nurse for any questions or concerns Mon-Fri 8am-4pm: #[phone] For concerns after hours: #[phone] Medication changes: 1. Change lisinopril to 1/2 tablet twice a day - 10mg twice a day Plan from today: 1. Call if dizzy or lightheaded. 2. Coronary angiogram Lab results: see attached: Component Latest Ref Rng & Units 06/06/2021 06/24/2021 Sodium 133 - 144 mmol/L 141 143 Potassium 3.4 - 5.3 mmol/L 4.2 4.7 Chloride 94 - 109 mmol/L 110 (H) 110 (H) Carbon Dioxide 20 - 32 mmol/L 26 28 Anion Gap 3 - 14 mmol/L 5 5 Urea Nitrogen 7 - 30 mg/dL 30 27 Creatinine 0.66 - 1.25 mg/dL 0.96 1.23 Calcium 8.5 - 10.1 mg/dL 8.7 9.0 Glucose 70 - 99 mg/dL 167 (H) 195 (H) GFR Estimate >60 mL/min/1.73m2 79 59 (L) ESS AUTOMATION ENGINEER documented in this encounter Progress Notes Giuliana Gomez APRN CNP - 06/27/2021 1:50 PM CST CARDIOLOGY CLINIC / [facility] CLINIC VISIT (Heart Failure Specialty) DOS: 06.27.21 Nikita Anderson : 1950 Primary Power Operator: Dr. Solis ( He was followed previously with Dr. Aguiar) REASON FOR VISIT: CAD, post CABG/ established CORE patient/ review nuc. Results HISTORY OF PRESENT ILLNESS: Mr. Anderson is a 70-year-old male with [...] planning to go to a trip to [place] shortly thereafter. 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 F. 04/19/2021, CABG: DOUGLASS to LAD, reverse SVG to PDA, reverse SVG to OM 2. G. 06/24/21 Nuc.stress test did not show any inferior defects though there was significant diaphragmatic attenuation affecting interpretation of the inferior wall. 6. ischemic cardiomyopathy. Stopped carvedilol for borderline bradycardia, but restarted due to the nonsustained VT. Recent decline in LVEF. 7. ??04/28/2021 he was admitted with weakness and falls, and with GENO. He was also found to be borderline bradycardia, and so carvedilol was discontinued. He was found to have a pleural effusion for which he underwent thoracentesis 04/29/2021. 8. Tachycardia vs atrial fibrillation, a Holter monitor 05/07 to 05/09/2021 that demonstrated 2 short episodes of atrial tachycardia vs atrial fibrillation, one episode lasting 23 seconds, and another lasting 39 seconds. For follow-up, cardiac event monitor was placed for 30 days, this revealed no atrial fibrillation, however did show one 7 beat run of nonsustained VT at 197 bpm. He did require repeat thoracentesis 05/14/2021 with removal of 1.3 L of fluid. 9. Chronic anemia of unknown origin: received blood infusions in the past, iron infusions. 10. Prostate surgery in 2016?? Seen by Dr. Solis 06/12, doing well. No complaints of angina. The acuity of this decrease in LV function is not entirely clear, may have been present postoperatively. Given recent CABG, a repeat nuclear stress test was done. Amlodipine stopped and lisinopril started 20 mg every day. CXR Completed TTE 05/2021 demonstrates worsened inferior wall motion and decreased LVEF compared to prior pre-CABGTTE 12/2020. 06/24/21 Nuc.stress test did not show any inferior defects though there was significant diaphragmatic attenuation affecting interpretation of the inferior wall. CABG 04/19/2021 DOUGLASS to LAD, reverse SVG to PDA, reverse SVG to OM 2. Given the drop in LV function and change in wall motion after CABG, as well as NSVT seen on cardiac event monitor and new basal anterior ischemia on nuclear stress test, Dr. Solis recommends repeat coronary and bypass angiogram and possible intervention. He returns in follow up to discuss the results. He denies chest pain, chest pressure, neck or arm pain. He denies shortness of breath, orthopnea, PND, syncope or near syncope. He complains of dizzinessand lightheadedness on and off since starting lisinopril. PREVIOUS STUDIES (personally reviewed): BMP RESULTS: Results for NIKITA ANDERSON ( ) as of 06/27/2021 14:15 Ref. Range 06/24/2021 08:37 Sodium Latest Ref Range: 133 - 144 mmol/L 143 Potassium Latest Ref Range: 3.4 - 5.3 mmol/L 4.7 Chloride Latest Ref Range: 94 - 109 mmol/L 110 (H) Carbon Dioxide Latest Ref Range: 20 - 32 mmol/L 28 Urea Nitrogen Latest Ref Range: 7 - 30 mg/dL 27 Creatinine Latest Ref Range: 0.66 - 1.25 mg/dL 1.23 GFR Estimate Latest Ref Range: >60 mL/min/1.73m2 59 (L) Calcium Latest Ref Range: 8.5 - 10.1 mg/dL 9.0 Anion Gap Latest Ref Range: 3 - 14 mmol/L 5 Glucose Latest Ref Range: 70 - 99 mg/dL 195 (H) Lab Results Component Value Date CHOL 115 06/06/2021 CHOL 115 12/21/2020 HDL 41 06/06/2021 HDL 31 (L) 12/21/2020 LDL 49 06/06/2021 LDL 34 12/21/2020 TRIG 123 06/06/2021 TRIG 251 (H) 12/21/2020 CHOLHDLRATIO 3.5 04/09/2015 Echocardiography: 06/06/2021 demonstrates LVEF 46% with severe inferior/inferoseptal hypokinesis, moderately reduced RV function, pleural effusion, trivial pericardial effusion. I reviewed his intraoperative KARIE and there was a trivial pericardial effusion present on the study as well. ASSESSMENT AND PLAN: 1 Ischemic CM, TTE 06/06/2021 LVEF 46%, down from TTE 01/02/21 LVEF 55-60%. Denies symptoms concerning for angina, however did have 7 beat run of NSVT noted on cardiac event monitor. GDMT: Carvedilol 6.25.mg bid, lisinopril 10mg bid 2. CAD with recent CABG 04/19/2021, DOUGLASS to LAD, reverse SVG to PDA, reverse SVG to OM 2. - aspirin, BB, statin 3. Pleural effusions post CABG, requiring thoracenteses 4. Post CABG atrial tachycardia vs atrial fibrillation on Holter monitor 05/07/21 (23s, 39s), no recurrence seen on subsequent 30d event monitor 5. Trivial pericardial effusion 6. HTN: improved 7. HL: 05/30/21: LDL 49, HDL 41 8. DM: A1C 7.1 04/29/21 9. CKD: creat. 1.23 10. Anemia, check hgb 06/[address] Solis 06/12, doing well. No complaints of angina. The acuity of this decrease in LV function is not entirely clear, may have been present postoperatively. Given recent CABG, a repeat nuclear stress test was done. TTE 05/2021 demonstrates worsened inferior wall motion and decreased LVEF compared to prior pre-CABGTTE 12/2020. 06/24/21 Nuc.stress test did not show any inferior defects though there was significant diaphragmatic attenuation affecting interpretation of the inferior wall. CABG 04/19/2021 DOUGLASS to LAD, reverse SVG to PDA, reverse SVG to OM 2. Given the drop in LV function and change in wall motion after CABG, as well as NSVT seen on cardiac event monitor and new basal anterior ischemia on nuclear stress test, Dr. Solis recommends repeat coronary and bypass angiogram and possible intervention. Risks and benefits of left heart catheterization and coronary angiogram were discussed with the patient in detail. Risk estimated at 0.1-0.3% for diagnostic angio and 1-2% for PCI, including risk of stroke, [place], , emergent bypass, contrast induced allergic reaction, renal dysfunction, and vascularcomplications (including bleeding and transfusion) were discussed. Patient understands and wishes toproceed. Today he returns in follow-up to review his nuclear stress test. We went through it. Explained to him that Dr. Solis recommends proceeding with repeat coronary angiography. He complains of occasional lightheadedness and dizziness. He takes his blood pressure at times in the afternoon. His blood pressure is anywhere from 116/70-150 systolic. BMP 06/24/21 creat. 1.23 and K+ 4.7. His last hemoglobin that we have is from April 30, 2021 which is 8.2. Does have anemia of unknown etiology. I have added on a CBC to his blood work on 06/30. Recommendations: 1. Coronary angiogram 2. Change lisinopril to 10mg bid 3. Take blood pressure twice a day. Call if dizziness continues. Of note he is on a high dose of hydralazine as well as lisinopril, clonidine and carvedilol. Follow-up: 1. one week after angiogram 2. Follow up in 1 month Thank you for the opportunity to be involved in this very pleasant patient's care please feel to contact me with any questions. Total time: 86 minutes was spent today reviewing the chart, visiting the patient, and documenting the visit. CURRENT MEDICATIONS: Current Outpatient Medications Medication Sig Dispense Refill ??? acetaminophen (TYLENOL) 325 MG tablet Take 2 tablets (650 mg) by mouth every 4 hours as needed for mild pain 40 tablet 0 ??? aspirin (ASA) 81 MG chewable tablet 4 tablets (324 mg) by Oral or NG Tube route daily 30 tablet 0 ??? carvedilol (COREG) 6.25 MG tablet Take 1 tablet (6.25 mg) by mouth 2 times daily (with meals) 180 tablet 1 ??? cloNIDine (CATAPRES) 0.1 [...] and wrist) Topical cream ??? hydrALAZINE (APRESOLINE) 25 MG tablet Take 1 tablet (25 mg) by mouth daily as needed (for blood pressure >170 mmHg) 20 tablet 1 ??? hydrALAZINE (APRESOLINE) 50 MG tablet Take 2 tablets (100 mg) by mouth 3 times daily 540 tablet 0 ??? insulin glargine (LANTUS PEN) 100 UNIT/ML pen Inject 55 Units Subcutaneous At Bedtime (Patient not taking: Reported on 06/12/2021) ??? insulin lispro (HUMALOG) 100 UNIT/ML vial [...] 1 tablet (30 mg) by mouth daily 90 tablet0 ??? lisinopril (ZESTRIL) 20 MG tablet Take 1 tablet (20 mg) by mouth daily 90 tablet 3 ??? melatonin 3 MG CAPS Take 10 [...] Other (See Comments) Congestion ??? Epinephrine Palpitations ROS: 12-pt ROS is negative except for as noted above. PHYSICAL EXAMINATION: Vitals: Blood pressure 118/50, pulse is 62, weight is 214 pounds Constitutional: Patient is pleasant, alert, cooperative, and in NAD. HEENT: NCAT. PERRLA. EOM's intact. Neck: JVP is about 6 to 8 cm Pulmonary: clear Cardiac: regular rate, regular rhythm, normal S1 and S2, no S3, S4, no murmur appreciated, Abdomen: Soft, non-tender abdomen, no hepatosplenomegaly appreciated. Extremities: no edema Neurological: No gross motor or sensory deficits. Psych: Appropriate affect ESS AUTOMATION ENGINEER documented in this encounter Plan of Treatment Upcoming Encounters Date Type Specialty Care Team Description 05/15/2022 Hospital Encounter Surgery Singh Torres MD [facility] [address] [place] [id number] (Rosalva ferreira) 05/15/2022 Surgery Surgery Neo Torres MD BLEPHAROPLASTY BILATERAL [facility] PTOSIS REPAIR BILATERAL [address] [place] [id number] (Rosalva ferreira) 06/25/2022 Ancillary Procedure Cardiology Kirk Silver MD [address] [place] [id number] (Rosalva ferreira) Scheduled Procedures Name Priority Associated [...] disease involving bray ry bypass graft of eek heart without angina pectoris Coronary artery disease involving eek coronary artery of eek heart without angina pectoris S/P CABG (coronary artery bypass graft) Postsurgical aortocoronary bypass status Essential hypertension Unspecified essential hypertension 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 documented in this encounter Care Teams Miter Grinder Operator Relationship Specialty Start Date End Date Anatoliy Jackson, PCP - General 05/14/12 Heath More PCP - Internal Medicine INTERNAL MEDICINE - 01/06/14 MD Andreas ENDOCRINOLOGY, ENDOCRINE [facility] DI[facility] [address] [place] [phone] Peter Gipson PCP - Urology 04/02/15 MD Jordan [facility] [address] [place] [address] [address] [place] [address] Peter Mcmullen Assigned Musculoskeletal 06/01/20 MD Mahendra Provider Formerly named [facility] [address] [place], [place] [address] Fidencio Solis MD Assigned Heart and 06/16/21 06/29/21 [address], Vascular Provider [address] [place] [id number] documented as of this encounter
--- OUTSIDE RECORDS SUMMARY | 2022-05-02 12:25 | XMS_ITS | Encounter Summary ---
:1950 Author Organization [place] Address [address] [place] [address] Care Team Providers Name Role Phone Anatoliy Jackson MD Primary Care Provider Heath More MD Unavailable Peter Gipson MD Unavailable Peter Mcmullen MD Unavailable Giuliana Gomez APRN WAXER OPERATOR Unavailable [phone] Encounter Details Date Type Department Care Team Description 07/01/2021 Orders Only [facility] Laureen Emerson Co ronary artery disease involving [place] coronary artery of [place] heart without angina pectoris (Primary Dx); [facility] RN Abnormal stress test; [facility] Dyspnea on exertion [address] [place] [phone] Social History Tobacco Use Types Packs/Day [...] with No / Unsure 06/24/2021 12:47 PM BLUEPRINT ENGINEER someone who was confirmed or 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 documented as of this encounter Plan of Treatment Upcoming Encounters Date Type Specialty Care Team Description 05/15/2022 Hospital Encounter Surgery Singh Torres MD [facility] [address] [place] [address] (Wo rk) 05/15/2022 Surgery Surgery Neo Torres MD BLEPHAROPLASTY BILATERAL [place] [facility] PTOSIS REPAIR BILATERAL [address] [place] [address] (Wo rk) 06/25/2022 Ancillary Procedure Cardiology Kirk Silver MD [address] [place] [address] (Wo rk) Scheduled Procedures Name Priority Associated Diagnoses Date/Time REPAIR, PTOSIS, BILATERAL, Dermatochalas is 05/15/2022 7:30 AM CDT WITH BILATERAL BLEPHAROPLASTY 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 REPAIR, ECTROPION, EYE, Dermatochalasis 05/15/2022 7:30 AM CDT BILATERAL 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 documented as of this encounter Visit Diagnoses Diagnosis Coronary artery disease involving [place] coronary artery of [place] heart without angina pectoris - Primary Abnormal stress test Other nonspecific abnormal cardiovascula r system function study Dyspnea on exertion Other dyspnea and respiratory abnormalit y 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 documented in this encounter Care Teams Cath Lab Radiological Technologist Relationship Specialty Start Date End Date Anatoliy Jackson MD PCP - General 05/14/12 Heath More PCP - Internal Medicine INTERNAL MEDICINE - 01/06/14 MD Andreas END[facility]CR[facility], [facility] [address] [place] [phone] Peter Gipson PCP - Urology 04/02/15 MD Jordan [facility] [address] [facility] [address] [place], [place] [id number] Peter Mcmullen Assigned Musculoskeletal 06/01/20 MD Mahendra Provider [address] [place], [place] [address] Giuliana Gomez Assigned Heart and 06/30/21 A, CALLIE WAXER OPERATOR Vascular Provider [address] [place] [id number] documented as of this encounter
--- OUTSIDE RECORDS SUMMARY | 2022-05-02 12:26 | XMS_ITS | Encounter Summary ---
:1950 Author Organization [place] Address [address] [facility] [place] [address] Care Team Providers Name Role Phone Anatoliy Jackson MD Primary Care Provider Heath More MD Unavailable Peter Gipson MD Unavailable Peter Mcmullen MD Unavailable Giuliana Gomez APRN [facility] Unavailable [phone] Encounter Details Date Type Department Care Team Description 06/06/2021 Travel Social History Tobacco Use Types Packs/Day [...] been in contact with No / Unsure 06/06/2021 9:17 AM CDT someone who was confirmed or 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 documented as of this encounter Plan of Treatment Upcoming Encounters Date Type Specialty Care Team Description 05/15/2022 Hospital Encounter Surgery Singh Torres MD [facility] [address] [place] [address] (Wo rk) 05/15/2022 Surgery Surgery Neo Torres MD BLEPHAROPLASTY BILATERAL [place] [facility] PTOSIS REPAIR BILATERAL [address] [place] [address] (Wo rk) 06/25/2022 Ancillary Procedure Cardiology Kirk Silver MD [address] [place] [address] (Wo rk) Scheduled Procedures Name Priority Associated [...] on filedocumented in this encounter Care Teams Lens Edger Relationship Specialty Start Date End Date Anatoliy Jackson MD PCP - General 05/14/12 Heath More PCP - Internal Medicine INTERNAL MEDICINE - 01/06/14 MD Andreas ENDOCRINOLOGY, [facility] [address] [place] [address] Peter Gipson PCP - Urology 04/02/15 MD Jordan [facility] [address] [place] [address] Peter Mcmullen Assigned Musculoskeletal 06/01/20 MD Mahendra Provider [address] [place], [place] [address] Giuliana Gomez Assigned Heart and 05/19/2106/15/21 CALLIE Hernandez [facility] Vascular Provider [address] [place] [id number] documented as of this encounter
--- OUTSIDE RECORDS SUMMARY | 2022-05-02 12:26 | XMS_ITS | Encounter Summary ---
:1950 Author Organization [place] Address [address] [facility] [place] [address] Care Team Providers Name Role Phone Anatoliy Jackson MD Primary Care Provider Heath More MD Unavailable Peter Gipson MD Unavailable Peter Mcmullen MD Unavailable Giuliana Gomez APRN MATERIAL CREW SUPERVISOR Unavailable [phone] Encounter Details Date Type Department Care Team Description 06/06/2021 Lab [facility] Heart [place] nary artery disease [facility] [place] involving coronary bypass [id number] [facility] [address] raft of [place] heart without 140 [place] [address] Social History Tobacco Use [...] in contact with No / Unsure 06/06/2021 7:28 AM CDT someone who was confirmed or 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 documented as of this encounter Plan of Treatment Upcoming Encounters Date Type Specialty Care Team Description 05/15/2022 Hospital Encounter Surgery Singh Torres MD [facility] [address] [place] [address] (Wo rk) 05/15/2022 Surgery Surgery Neo Torres MD BLEPHAROPLASTY BILATERAL [facility] PTOSIS REPAIR BILATERAL [address] [place] [address] (Wo rk) 06/25/2022 Ancillary Procedure Cardiology Kirk Silver MD [address] [place] [address] (Wo rk) Scheduled Procedures Name Priority Associated [...] Name Priority Date/Time Associated Diagnosis Comme nts LIPID PROFILE Routine 06/06/2021 8:02 AM Coronary artery Resul ts for this CDT disease involving procedure are in coronary bypass the results graft of [place] section. heart without angina pectoris ALT Routine 06/06/2021 8:02 AM Coronary artery Result s for this CDT disease involving procedure are in coronary bypass the results graft of [place] section. heart without angina pectoris BASIC METABOLIC Routine 06/06/2021 8:02 AM Coronary artery Res ults for this PANEL CDT disease involving procedure are in coronary bypass the results graft of [place] section. heart without angina pectoris documented in this encounter Results ALT (06/06/2021 8:02 AM CDT) P athologist Signature ALT 22 0 - 70 U/L 06/06/2021 9:09 [facility] AM CDT Specimen Anatomical Collection Method / Collection Time Recei shyla Time (Source) Location / Volume Laterality Blood STRUCTURE OF RIGHT Venipuncture / 06/06/2021 8:02 05/11 8:04 UPPER LIMB / Unknown AM CDT AM CDT Unknown Giuliana Gomez APRN MATERIAL CREW SUPERVISOR LAB - BLOOD ORDERABLES Performing Organization Address City/State/ZIP Code Phon [place] [address] Care Lab [address] Lab (1st floor, no room number) Lipid Profile (06/06/2021 8:02 AM CDT) Patholo gist Method Time Signature Cholesterol 115 <200 mg/dL 06/06/2021 [facility] 9:11 AM CDT Triglycerides 123 <150 mg/dL 06/06/2021 [facility] 9:11 AM CDT Direct Measure HDL 41 >=40 mg/dL 06/06/2021 [facility] 9:11 AM CDT LDL Cholesterol 49 <=100 06/06/2021 [facility] Calculated mg/dL 9:11 AM CDT Non HDL 74 <130 mg/dL 06/06/2021 [facility] Cholesterol 9:11 AM CDT Patient Fasting > Yes 06/06/2021 [facility] RY 8hrs? 9:11 AM CDT Specimen Anatomical Collection Method / Collection Time Recei shyla Time (Source) Location / Volume Laterality Blood STRUCTURE OF RIGHT Venipuncture / 06/06/2021 8:02 05/11 8:04 UPPER LIMB / Unknown AM CDT AM CDT Unknown Narrative [facility] - 06/06/2021 9:11 AM CDT Cholesterol Desirable: ??<200 mg/dL Triglycerides Normal: ??Less than 150 mg/dL Borderline High: ??150-199 mg/dL High: ??200-499 mg/dL Very High: ??Greater than or equal to 50 0 mg/dL Direct Measure HDL Female: ??Greater than or equal to 50 mg /dL Male: ??Greater than or equal to 40 mg/d L LDL Cholesterol Desirable: ??<100mg/dL Above Desirable: ??100-129 mg/dL Borderline High: ??130-159 mg/dL High: ??160-189 mg/dL Very High: ??>= 190 mg/dL Non HDL Cholesterol Desirable: ??130 mg/dL Above Desirable: ??130-159 mg/dL Borderline High: ??160-189 mg/dL High: ??190-219 mg/dL Very High: ??Greater than or equal to 22 0 mg/dL Giuliana Gomez APRN MATERIAL CREW SUPERVISOR LAB - BLOOD ORDERABLES Performing Organization Address City/State/ZIP Code [place] [address] Care Lab [address] Lab (1st floor, no room number) (ABNORMAL) Basic metabolic panel (06/06/2021 8:02 AM CDT) Analysis Performed At Patho logist Time Signature Sodium 141 133 - 144 06/06/2021 LABORATORY mmol/L 9:09 AM CDT Potassium 4.2 3.4 - 5.3 06/06/2021 LABORATORY mmol/L 9:09 AM CDT Chloride 110 (H) 94 - 109 06/06/2021 LABORATORY mmol/L 9:09 AM CDT Carbon Dioxide 26 20 - 32 06/06/2021 LABORATORY (CO2) mmol/L 9:09 AM CDT Anion Gap 5 3 - 14 06/06/2021 LABORATORY mmol/L 9:09 AM CDT Urea Nitrogen 30 7 - 30 06/06/2021 LABORATORY mg/dL 9:09 AM CDT Creatinine 0.96 0.66 - 06/06/2021 LABORATORY 1.25 mg/dL 9:09 AM CDT Calcium 8.7 8.5 - 10.1 06/06/2021 LABORATORY mg/dL 9:09 AM CDT Glucose 167 (H) 70 - 99 06/06/2021 LABORATORY mg/dL 9:09 AM CDT GFR Estimate 79 >60 06/06/2021 LABORATORY mL/min/1.7 9:09 AM CDT 3m2 Comment: As of February 17, 2021, [...] Laterality Blood STRUCTURE OF RIGHT Venipuncture / 06/06/2021 8:02 1003/2021 8:04 UPPER LIMB / Unknown AM CDT AM CDT Unknown Giuliana Gomez APRN, CNP LAB - BLOOD ORDERABLES Performing Organization Address City/State/ZIP Code [place]on [place] [address] Care Lab [address] Lab (1st floor, no room number) documented in this encounter Visit Diagnoses Diagnosis Coronary artery disease involving [place]ay [place] bypass graft of [place] heart without angina pectoris 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 documented in this encounter Care Teams Bonbon Cream Warmer Relationship Specialty Start Date End Date Anatoliy Jackson MD PCP - General 05/14/12 Heath More PCP - Internal Medicine INTERNAL MEDICINE - 01/06/14 MD Andreas ENDOCRINOLOGY, [facility] [address] [facility] [address] [place] [phone] Peter Gipson PCP - Urology 04/02/15 MD Jordan [facility] [address] [facility] [address] [place], [place] [phone] Peter Mcmullen Assigned Musculoskeletal 06/01/20 MD Mahendra Provider [address] [place], [place] [phone] Giuliana Gomez Assigned Heart and 05/19/2106/15/21 CALLIE Hernandez MATERIAL CREW SUPERVISOR Vascular Provider [address] [facility] [address] [place] [id number] documented as of this encounter
--- OUTSIDE RECORDS SUMMARY | 2022-05-02 12:26 | XMS_ITS | Encounter Summary ---
:1950 Author Organization [place] Address [address] [place] [address] Care Team Providers Name Role Phone Anatoliy Jackson MD Primary Care Provider Heath More MD Unavailable Peter Gipson MD Unavailable Peter Mcmullen MD Unavailable Giuliana Gomez APRN [facility] Unavailable [phone] Encounter Details Date Type Department Care Team Description 06/12/2021 Travel Social History Tobacco Use Types Packs/Day [...] been in contact with No / Unsure 06/12/2021 8:44 AM CDT someone who was confirmed or 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 documented as of this encounter Plan of Treatment Upcoming Encounters Date Type Specialty Care Team Description 05/15/2022 Hospital Encounter Surgery Singh Torres MD [facility] [address] [place] [address] (Wo rk) 05/15/2022 Surgery Surgery Neo Torres MD BLEPHAROPLASTY BILATERAL [place] [facility] PTOSIS REPAIR BILATERAL [address] [place] [address] (Wo rk) 06/25/2022 Ancillary Procedure Cardiology Kirk Silver MD [address] [place] [id number] (Wo rk) Scheduled Procedures Name Priority Associated [...] on filedocumented in this encounter Care Teams Warning Analyst Relationship Specialty Start Date End Date Anatoliy Jackson MD PCP - General 05/14/12 Heath More PCP - Internal Medicine INTERNAL MEDICINE - 01/06/14 MD Andreas ENDOCRINOLOGY, [facility] [address] [place] [address] Peter Gipson PCP - Urology 04/02/15 MD Joradn [facility] [address] [place] [address] Peter Mcmullen Assigned Musculoskeletal 06/01/20 MD Mahendra Provider [address] [place], [place] [address] Giuliana Gomez Assigned Heart and 05/19/2106/15/21 CALLIE Hernandez [facility] Vascular Provider [address] [place] [id number] documented as of this encounter
--- OUTSIDE RECORDS SUMMARY | 2022-05-02 12:26 | XMS_ITS | Encounter Summary ---
:1950 Author Organization [place] Address [address] [facility] [place] [address] Care Team Providers Name Role Phone Anatoliy Jackson MD Primary Care Provider Heath More MD Unavailable Peter Gipson MD Unavailable Peter Mcmullen MD Unavailable Ailyn Gomez APRN OTOLARYNGOLOGY REP Unavailable Reason for Referral CV Testing (Routine) - Closed Specialty Diagnoses / Procedures Referred By Contact Refer red To Contact Diagnoses Coronary artery disease involving coronary bypass graft of douglas heart without angina pectoris Ailyn Gomez APRN Procedures Echocardiogram Limited [facility] ECHO HEART XTHORACIC,LIMITED [facility] ECHO TRANSTHORACIC, LIMITED W CONTRAST [facility] ECHO TRANSTHORACIC, LIMITED W/O CONTRAST [facility] DOPPLER ECHO COLOR FLOW VELOCITY MAP OTOLARYNGOLOGY REP ZZ STATISTIC IV PUSH SINGL E INITIAL SUBSTANCE MD ECHO HEART XTHORACIC,LIMITED MD DOPPLER ECHO COLOR FLOW VELOCITY MAP MD ECHO HEART XTHORACIC,LIMITED MD ECHO HEART XTHORACIC,LIMITED HC ECHO TRANSTHORACIC, LIMITED [address] HC DOPPLER ECHO COLOR FLOW V ELOCITY MAP HC STATISTIC IV PUSH SINGLE INITIAL SUBSTANCE HC ECHO TRANSTHORACIC, LIMITED W CONTRAST HC ECHO TRANSTHORACIC, LIMITED W/O CONTRAST [place] [id number] Referral ID Status Reason Start Date Expiration Date Visits Requ ested Visits Authorized [id number] Closed 05/07/2021 05/07/2022 1 1 Reason for Visit CV Testing (Routine) - Closed Specialty Diagnoses / Procedures Referred By Contact Refer red To Contact Diagnoses Coronary artery disease involving coronary bypass graft of douglas heart without angina pectoris Ailyn Gomez APRN Procedures Echocardiogram Limited [facility] ECHO HEART XTHORACIC,LIMITED [facility] ECHO TRANSTHORACIC, LIMITED W CONTRAST [facility] ECHO TRANSTHORACIC, LIMITED W/O CONTRAST [facility] DOPPLER ECHO COLOR FLOW VELOCITY MAP OTOLARYNGOLOGY REP ZZHC STATISTIC IV PUSH SINGL E INITIAL SUBSTANCE MD ECHO HEART XTHORACIC,LIMITED MD DOPPLER ECHO COLOR FLOW VELOCITY MAP MD ECHO HEART XTHORACIC,LIMITED MD ECHO HEART XTHORACIC,LIMITED HC ECHO TRANSTHORACIC, LIMITED [address] HC DOPPLER ECHO COLOR FLOW V ELOCITY MAP HC STATISTIC IV PUSH SINGLE INITIAL SUBSTANCE HC ECHO TRANSTHORACIC, LIMITED W CONTRAST HC ECHO TRANSTHORACIC, LIMITED W/O CONTRAST [place] [id number] Referral ID Status Reason Start Date Expiration Date Visits Requ ested Visits Authorized [id number] Closed 05/07/2021 05/07/2022 1 1 Encounter Details Date Type Department Care Team Description 06/06/2021 Hospital Encounter [facility] Ailyn Hernandez APRN disease involving Heart Care OTOLARYNGOLOGY REP coronary bypass [id number] [place] [address] heart without angina [facility] [place] [address] pectoris [id number] Social History Tobacco Use Types Packs/Day [...] by 0 mouth every morning amLODIPine (NORVASC) 5 Take 1 tablet (5 mg) 90 tablet 1 06/12/2021 MG tabletIndications: by mouth daily Essential hypertension aspirin (ASA) 81 MG 4 tablets (324 [...] tabletIndications: S/P CABG (coronary artery bypass graft) polyethylene glycol Take 17 g by mouth 510 g 0 04/25/20 21 06/12/2021 (MIRALAX) 17 GM/Dose daily powderIndications: S/P CABG (coronary artery bypass graft) rosuvastatin (CRESTOR) Take 1 tablet (40 mg) 90 tablet 3 10/17/2021 40 MG by mouth every tabletIndications: evening Coronary artery disease involving douglas coronary artery of douglas heart without angina pectoris, Hyperlipidemia LDL goal <70, S/P coronary artery stent placement senna-docusate Take 1 tablet by 20 tablet 0 04/25/202110/2020 (SENOKOT-S/PERICOLACE) mouth 2 times daily 8.6-50 MG as needed for tabletIndications: S/P constipation CABG (coronary artery bypass graft) documented as of this encounter Plan of Treatment Upcoming Encounters Date Type Specialty Care Team Description 05/15/2022 Hospital Encounter Surgery Singh Torres MD [facility] [address] [place] [id number] (Rosalva rk) 05/15/2022 Surgery Surgery Neo Torres MD BLEPHAROPLASTY BILATERAL [facility] PTOSIS REPAIR BILATERAL [address] [place] [id number] (Wo rk) 06/25/2022 Ancillary Procedure Cardiology Kirk Silver MD [address] [place] [id number] (Rosalva rk) Scheduled Procedures Name Priority Associated [...] Name Priority Date/Time Associated Diagnosis Comme nts ECHO LIMITED Routine 06/06/2021 7:53 AM Coronary artery Result s for this CDT disease involving procedure are in the coronary bypass graft result s section. of douglas heart without angina pectoris documented in this encounter Results ECHO LIMITED (06/06/2021 7:53 AM CDT) athologist Signature Biplane LVEF 46% CARDIOLOGY RESULTS Anatomical Region Laterality Modality Echocardiography Specimen (Source) Anatomical Collection Method Collection Time Re ceived Time Location / / Volume Laterality 06/06/2021 7:32 AM CDT Narrative 06/06/2021 9:40 AM CDT [id number]^ANAYA^AILYN^[facility] Echocardiography Laboratory [address] [place] [id number] Name: NIKITA ANDERSON : 1950 Study Date: 06/06/2021 07:32 AM Age: 70 yrs Gender: Male Patient Location: [facility] Reason For Study: Coronary artery diseas e involving coronary bypass graft Ordering Physician: AILYN GOMEZ Referring Physician: AILYN GOMEZ Performed By: Brooke Salazar BSA: 2.2 m2 Height: 71 in Weight: 221 lb HR: 64 BP: 152/67 mmHg Procedure Limited Echo Adult. Interpretation Summary The left ventricle is borderline dilated . There is mild concentric left ventricula r hypertrophy. Biplane LVEF is 46%. There is moderate to severe inferior/inf eroseptal wall hypokinesis. The right ventricle is normal size. Moderately decreased right ventricular s ystolic function The right ventricular systolic pressure is approximated at 30mmHg plus the right atrial pressure. Trivial pericardial effusion Large left pleural effusion Compared to the last echo the LV functio n is better seen and there is now an inferior wall motion abnormality appreci ated. right heart pressures are similar. Pleural effusion not previously seen. RV function better seen, appears worse. Left Ventricle The left ventricle is borderline dilated . There is mild concentric left ventricular hypertrophy. Biplane LVEF is 46%. There is moderate to severe inferior wall hypokinesis. Right Ventricle The right ventricle is normal size. Mode rately decreased right ventricular systolic function. Mitral Valve The mitral valve leaflets appear normal. There is no evidence of stenosis, fluttering, or prolapse. There is trace mitral regurgitation. Tricuspid Valve The tricuspid valve is normal in structu re and function. There is trace tricuspid regurgitation. The right ventr icular systolic pressure is approximated at 30mmHg plus the right at rial pressure. IVC diameter <2.1 cm collapsing >50% with sniff suggests a no rmal RA pressure of 3 mmHg. Aortic Valve There is mild trileaflet aortic sclerosi s. Pulmonic Valve There is trace pulmonic valvular regurgi tation. Pericardium Trivial pericardial effusion. Large left pleural effusion. MMode/2D Measurements & Calculations IVSd: 1.4 cm LVIDd: 5.7 cm LVIDs: 4.6 cm LVPWd: 1.3 cm FS: 18.2 % LV mass(C)d: 342.1 grams LV mass(C)dI: 155.5 grams/m2 RWT: 0.46 Doppler Measurements & Calculations TR max yohan: 271.0 cm/sec TR max P.4 mmHg Report approved by: Yasir Ho 06/06/2021 09:40 AM Procedure Note Darwin Morris MD - 06/06/2021 [id number]^ANAYA^AILYN^[facility] Echocardiography Laboratory [address] [place] [id number] Name: NIKITA ANDERSON : 1950 Study Date: 06/06/2021 07:32 AM Age: 70 yrs Gender: Male Patient Location: [facility] Reason For Study: Coronary artery diseas e involving coronary bypass graft Ordering Physician: AILYN GOMEZ Referring Physician: AILYN GOMEZ Performed By: Brooke Salazar BSA: 2.2 m2 Height: 71 in Weight: 221 lb HR: 64 BP: 152/67 mmHg Procedure Limited Echo Adult. Interpretation Summary The left ventricle is borderline dilated . There is mild concentric left ventricula r hypertrophy. Biplane LVEF is 46%. There is moderate to severe inferior/inf eroseptal wall hypokinesis. The right ventricle is normal size. Moderately decreased right ventricular s ystolic function The right ventricular systolic pressure is approximated at 30mmHg plus the right atrial pressure. Trivial pericardial effusion Large left pleural effusion Compared to the last echo the LV functio n is better seen and there is now an inferior wall motion abnormality appreci ated. right heart pressures are similar. Pleural effusion not previously seen. RV function better seen, appears worse. Left Ventricle The left ventricle is borderline dilated . There is mild concentric left ventricular hypertrophy. Biplane LVEF is 46%. There is moderate to severe inferior wall hypokinesis. Right Ventricle The right ventricle is normal size. Mode rately decreased right ventricular systolic function. Mitral Valve The mitral valve leaflets appear normal. There is no evidence of stenosis, fluttering, or prolapse. There is trace mitral regurgitation. Tricuspid Valve The tricuspid valve is normal in structu re and function. There is trace tricuspid regurgitation. The right ventr icular systolic pressure is approximated at 30mmHg plus the right at rial pressure. IVC diameter <2.1 cm collapsing >50% with sniff suggests a no rmal RA pressure of 3 mmHg. Aortic Valve There is mild trileaflet aortic sclerosi s. Pulmonic Valve There is trace pulmonic valvular regurgi tation. Pericardium Trivial pericardial effusion. Large left pleural effusion. 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 documented in this encounter Care Teams [facility] Relationship Specialty Start Date End Date Anatoliy Jackson MD PCP - General 05/14/12 Heath More PCP - Internal Medicine INTERNAL MEDICINE - 01/06/14 MD Andreas ENDOCRINOLOGY, [facility] [address] [facility] [address] [place] [address] Peter Gipson PCP - Urology 04/02/15 MD Jordan [facility] [address] [facility] [address] [place] [address] Peter Mcmullen Assigned Musculoskeletal 06/01/20 MD Mahendra Provider [address] [place] [address] Aiyln Gomez Assigned Heart and 05/19/2106/15/21 CALLIE Hernandez OTOLARYNGOLOGY REP Vascular Provider [address] [facility] [address] [place] [address] documented as of this encounter
--- OUTSIDE RECORDS SUMMARY | 2022-05-02 12:26 | XMS_ITS | Encounter Summary ---
:1950 Author Organization [place] Address [address] [facility] [address] Care Team Providers Name Role Phone Anatoliy Jackson MD Primary Care Provider Heath More MD Unavailable Peter Gipson MD Unavailable Peter Mcmullen MD Unavailable Ailyn Julien APRN [facility] Unavailable Reason for Referral Diagnostic Imaging XR (Routine) - Pending Review Specialty Diagnoses / Procedures Referred By Contact Refer red To Contact Diagnoses Pleural effusion Anabella Loving MD Procedures X-ray Chest 2 vws* [address] [place] [address] Referral ID Status Reason Start Date Expiration Date Visits V isits Requested Authorized [id number] Pending 06/12/2021 06/12/2022 1 1 Review onsultation (Routine) - Pending Review Specialty Diagnoses / Procedures Referred By Contact Refer red To Contact Diagnoses S/P CABG (coronary artery bypass graft) Anabella Loving MD [address], [address] [place] [address] Referral ID Status Reason Start Date Expiration Date Visits V isits Requested Authorized [id number] Pending 06/12/2021 06/12/2022 1 1 Review onsultation (Routine) - Pending Review Specialty Diagnoses / Procedures Referred By Contact Refer red To Contact Diagnoses S/P CABG (coronary artery bypass graft) Anabella Loving MD [address] [place] [address] Referral ID Status Reason Start Date Expiration Date Visits V isits Requested Authorized [id number] Pending 06/12/2021 06/12/2022 1 1 Review iagnostic Imaging NM (Routine) - Pending Review Specialty Diagnoses / Procedures Referred By Contact Refer red To Contact Diagnoses NSVT (nonsustained ventricular tachycardia) S/P CABG (coronary artery bypass graft) Anabella Loving MD Procedures NM Lexiscan stress test (nuc card) [address] [place] [address] Referral ID Status Reason Start Date Expiration Date Visits V isits Requested Authorized [id number] Pending 06/12/2021 06/12/2022 5 5 Review Reason for Visit Reason Comments Consult Coronary artery disease Encounter Details Date Type Department Care Team Description 06/12/2021 Office Visit [facility] Anabella Loving MD NSVT (nonsustained ventricular tachycard ia) (H) (Primary Dx); [facility] Heart [address] sential hypertension; [address] S/P CABG (coronary artery bypass graft); [address] [place] [address] Pleural effusion [address] [place], [place] (Work) [phone] Social History Tobacco Use Types Packs/Day [...] Sign Reading Time Taken Comments Blood Pressure 144/58 06/12/2021 8:52 AM CDT Pulse 70 06/12/2021 8:52 AM CDT Temperature - - Respiratory Rate - - Oxygen Saturation - - Inhaled Oxygen Concentration - - Weight 98 kg (216 lb) 06/12/2021 8:52 AM CDT Height 180.3 cm (5' 11) 06/12/2021 8:52 AM CDT Body Mass Index 30.13 06/12/2021 8:52 AM CDT documented in this encounter Patient Instructions Patient InstructionsHo, Anabella Beyer MD - 06/12/2021 8:45 AM CDT Images from the original note were not included. June 12, 2021 Thank you for allowing our Cardiology team to participate in your care. Please note the following changes to your heart treatment plan: Medication changes: - change amlodipine to lisinopril 20mg daily Tests to be done: - chest x-ray - NON-fasting labs in 1-2 weeks - Lexiscan stress test in [place] Follow up: - Follow up in about 3 weeks with Fadi Julien NP or other cardiology SERAFIN, and with me in 3-4 months, or sooner as needed. Please contact our team at [phone] or [phone] for any questions or concerns. For scheduling, please call [phone]. If you are having a medical emergency, please call [phone]. Sincerely, Anabella Loving MD, [facility] Cardiology [facility] - [facility] - Rad documented in this encounter Progress Notes Anabella Loving MD - 06/12/2021 8:45 AM CDT Images from the original note were not included. Cardiology Clinic Progress Note: June 12, 2021 Patient Name: Nikita Anderson Patient Consult indication: CAD, post CABG HPI: I had the opportunity to see patient Nikita Anderson in cardiology clinic for a follow up visit. Patient is followed by our colleague Anatoliy Jackson MD with Primary Care. As you know, Mr. Anderson is a 70-year-old male with a past medical history significant for hypertension, hyperlipidemia, diabetes, chronic kidney disease, coronary artery disease status post PCI and CABG (DOUGLASS to LAD, rSVG to PDA, rSVG to OM2), post CABG pleural effusions, ischemic cardiomyopathy, whopresents for follow-up. I had initially met patient on 12/14/2020 for follow-up, previously he was followed by my colleague Dr. Aguiar. Patient has an extensive prior cardiac history. He had been experiencing some chest discomfort in 2012, and so underwent a nuclear stress test that was abnormal. Coronary angiography/heart catheterization 07/2013 demonstrated nonobstructive coronary artery disease. Subsequently he had experienced dyspnea on exertion and a nuclear stress test 12/2014 was also abnormal. Coronary angiography 12/2014 demonstrated obstructive coronary artery disease, unfortunately patient had been planning to go to a trip to [place] shortly thereafter. As his symptoms were stable, the decision was made to medically manage his coronary artery disease so that he may go on this trip. When he returned, he underwent cardiac catheterization/coronary angiography again 04/09/2015 with PCI of OM 2 and ostial and proximal left circumflex arteries. Last coronary angiogram was 04/01/2016 and was done after he was found to have an abnormal nuclear stress test (preop), and demonstrated widely patent stents. When I had seen him in clinic 12/14/2020, he had been experiencing worsening dyspnea on exertion, and so he was evaluated with a nuclear stress test that was abnormal. Subsequent coronary angiogram 03/13/2021 demonstrated obstructive disease in the LAD and RCA, also with a SEARCH SPECIALIST of OM 2. Patient underwent bypass surgery with Dr. Gardner on 04/19/2021, DOUGLASS to LAD, reverse SVG to PDA, reverse SVG to OM 2. Following this, unfortunately 04/28/2021 he was admitted [...] with removal of 1.3 L of fluid. Over the past several weeks, patient reports that he has been feeling generally well. We restarted carvedilol due to the nonsustained VT. He denies any chest pain, chest pressure, abnormal shortness ofbreath. He does note that sometimes when using his incentive spirometer, he is unable to reach the same volumes as other times, but overall feels generally well. Denies any abnormal lower extremity swelling, symptoms of orthopnea/PND. He has been participating in cardiac rehab without issue. He had a dental procedure canceled recently, they were not aware of his recent cardiac surgery, and due to concern regarding perioperative cares, they recommended that he clarify his periprocedural requirements with cardiology. TTE 06/06/2021 demonstrates LVEF 46% with severe inferior/inferoseptal hypokinesis, moderately reduced RV function, pleural effusion, trivial pericardial effusion. I reviewed his intraoperative KARIE andthere was a trivial pericardial effusion present on the study as well. Assessment and Plan/Recommendations: # Mild ischemic CM, TTE 06/06/2021 LVEF 46%, down from TTE 01/02/21 LVEF 55-60%. Denies symptoms concerning for angina, however did have 7 beat run of NSVT noted on cardiac event monitor. # CAD with recent CABG 04/19/2021, DOUGLASS to LAD, reverse SVG to PDA, reverse SVG to OM 2. # Pleural effusions post CABG, requiring thoracenteses # Post CABG atrial tachycardia vs atrial fibrillation on Holter monitor 05/07/21 (23s, 39s), no recurrence seen on subsequent 30d event monitor # Trivial pericardial effusion # HTN # HL # DM # CKD In summary, patient is a 70-year-old male with a history of recent CABG 04/19/2021, complicated by subsequent readmission with GENO, pleural effusions requiring thoracentesis. GENO has resolved with discontinuation of furosemide and lisinopril. Holter monitor was ordered after his most recent discharge which demonstrated 2 short runs of atrial tachycardia versus atrial fibrillation, subsequently was evaluated with a 30-day event monitor which did not demonstrate any recurrence of the atrial arrhythmia,however did demonstrate a 7 beat run of nonsustained VT. For further evaluation, patient underwent aTTE 06/06/2020 which demonstrated mild worsening of LV function, LVEF 46%. He has seen have a trivial pericardial effusion, however this appeared to be present on an intraoperative KARIE. The acuity of this decrease in LV function is not entirely clear, may have been present postoperatively. Given recent CABG, will proceed with a repeat nuclear stress test. Will transition to heart failure regimen with change of amlodipine back to lisinopril 20 mg daily, with caution given recent hospitalization with GENO. Will need close follow-up with labs. Will also recheck a chest x-ray to assess pleural effusion, if recurrent, will need to see CT surgery again. He is euvolemic on exam otherwise, and given recent hospitalization with GENO, will hold off on diuretics at this time. Thank you for allowing our team to participate in the care of Nikita Anderson. Please do not hesitateto call or page me with any questions or concerns. Sincerely, Anabella Loving MD, [facility] Cardiology Text Page June 12, 2021 Voice recognition software utilized. Although reviewed after completion, some word and grammatical errors may be present. Total time spent on this encounter: 55 minutes, providing care in this encounter including, but not limited to, reviewing prior medical records, laboratory data, imaging studies, diagnostic studies, procedure notes, formulating an assessment and plan, recommendations. Past Medical History: Past Medical History: Diagnosis [...] circ 50-60%. Mod. nonobstructive CAD ??? CV CORONARY ANGIOGRAM N/A 03/13/2021 Procedure: Coronary Angiogram; Surgeon: Darwin Valero MD; Location: [facility] ??? CV INSTANTANEOUS WAVE-FREE RATIO N/A 03/13/2021 Procedure: Instantaneous Wave-Free Ratio; Surgeon: Darwin Valero MD; Location: HEART [facility]AC [facility] ??? HC LEFT HEART CATHETERIZATION 04/01/2016 mild [...] 1 tablet (5 mg) by mouth daily 90 tablet 1 ??? aspirin (ASA) 81 MG chewable tablet [...] times daily 540 tablet 0 ??? insulin lispro (HUMALOG) 100 [...] mg) by mouth daily 90 tablet0 ??? melatonin 3 MG CAPS Take 10 [...] Take 1 capsule by mouth every morning ??? insulin glargine (LANTUS PEN) 100 UNIT/ML pen Inject 55 Units Subcutaneous At Bedtime (Patient not taking: Reported on 06/12/2021) Allergies: Allergies Allergen Reactions ??? Atorvastatin Other (See Comments) Congestion ??? Epinephrine Palpitations Social History: History Drug Use No History Smoking Status ??? Former Smoker ??? Years: 2.00 ??? Types: Cigarettes ??? Quit date: 04/19/1972 Smokeless Tobacco ??? Never Used Social History Substance and Sexual Activity Alcohol use: Not Currently Comment: beer and wine, 2 most days - none recently Family History: Family History Problem Relation Age of Onset ??? Hypertension Mother ??? Diabetes Maternal Grandmother ??? Hypertension Maternal Grandmother ??? Hypertension Maternal Grandfather Review of Systems: A complete review of systems was negative except as mentioned in the History of Present Illness. Objective & Physical Exam: BP (!) 144/58 Pulse 70 Ht 1.803 m (5' 11) Wt 98 kg (216 lb) BMI 30.13 kg/m?? Wt Readings from Last 2 Encounters: 06/12/21 98 kg (216 lb) 05/13/21 100.4 kg (221 lb 6.4 oz) Body mass index is 30.13 kg/m??. Body surface area is 2.22 meters squared. Constitutional: appears stated age, in no apparent distress, appears to be well nourished Eyes: sclera anicteric, conjunctiva normal ENT: normocephalic, without obvious abnormality, atraumatic Pulmonary: minimally reduced breath sounds left side, no rales Cardiovascular: JVP normal, regular rate, regular rhythm, normal S1 and S2, no S3, S4, no murmur appreciated, no lower extremity edema Gastrointestinal: abdominal exam benign Neurologic: awake, alert, face symmetrical, moves all extremities Skin: no jaundice Psychiatric: affect is normal, answers questions appropriately, oriented to self and place Data reviewed: Lab Results Component Value Date WBC 11.6 (H) 04/30/2021 WBC 8.8 01/02/2021 RBC 2.77 (L) 04/30/2021 RBC 3.93 (L) 01/02/2021 HGB 8.2 (L) 04/30/2021 HGB 11.3 (L) 01/02/2021 HCT 26.3 (L) 04/30/2021 HCT 34.5 (L) 01/02/2021 MCV 95 04/30/2021 MCV 88 01/02/2021 MCH 29.6 04/30/2021 MCH 28.8 01/02/2021 MCHC 31.2 (L) 04/30/2021 MCHC 32.8 01/02/2021 RDW 14.1 04/30/2021 RDW 12.9 01/02/2021 PLT 284 04/30/2021 PLT 202 01/02/2021 Sodium Date Value Ref Range Status 06/06/2021 141 133 - 144 mmol/L Final 01/02/2021 142 133 - 144 mmol/L Final Potassium Date Value Ref Range Status 06/06/2021 4.2 3.4 - 5.3 mmol/L Final 01/02/2021 4.8 3.4 - 5.3 mmol/L Final Chloride Date Value Ref Range Status 06/06/2021 110 (H) 94 - 109 mmol/L Final 01/02/2021 112 (H) 94 - 109 mmol/L Final Carbon Dioxide Date Value Ref Range Status 01/02/2021 26 20 - 32 mmol/L Final Carbon Dioxide (CO2) Date Value Ref Range Status 06/06/2021 26 20 - 32 mmol/L Final Anion Gap Date Value Ref Range Status 06/06/2021 5 3 - 14 mmol/L Final 01/02/2021 4 3 - 14 mmol/L Final Glucose Date Value Ref Range Status 06/06/2021 167 (H) 70 - 99 mg/dL Final 01/02/2021 115 (H) 70 - 99 mg/dL Final Urea Nitrogen Date Value Ref Range Status 06/06/2021 30 7 - 30 mg/dL Final 01/02/2021 40 (H) 7 - 30 mg/dL Final Creatinine Date Value Ref Range Status 06/06/2021 0.96 0.66 - 1.25 mg/dL Final 01/02/2021 1.56 (H) 0.66 - 1.25 mg/dL Final GFR Estimate Date Value Ref Range Status 06/06/2021 79 >60 mL/min/1.73m2 Final Comment: As of February 17, 2021, eGFR is calculated by the CKD-EPI creatinine equation, without race adjustment. eGFR can be influenced by muscle mass, exercise, and diet. The reported eGFR is an estimation only and is only applicable if the renal function is stable. 01/02/2021 44 (L) >60 mL/min/[1.73_m2] Final Comment: Non GFR Calc Starting 07/27/2018, serum creatinine based estimated GFR (eGFR) will be calculated using the Chronic Kidney Disease Epidemiology Collaboration (CKD-EPI) equation. Calcium Date Value Ref Range Status 06/06/2021 8.7 8.5 - 10.1 mg/dL Final 01/02/2021 8.6 [...] 0828 12/06/15 0812 04/09/15 0700 10/12/13 0000 10/12/13 0000 CHOL 115 115 < > 132 < > 154 HDL 41 31* < > 38* < > 35* LDL 49 34 < > 59 < > 62 TRIG 123 251* < > 174* < > 287* CHOLHDLRATIO -- -- -- 3.5 -- 4.4 < > = values in this interval not displayed. Lab Results Component Value Date A1C 7.1 04/29/2021 A1C 7.0 04/28/2021 A1C 7.0 04/23/2021 A1C 7.2 04/22/2021 A1C 7.3 04/21/2021 A1C 9.7 06/07/2014 A1C 8.2@ 08/14/2009 A1C 8.1@ 04/22/2005 A1C 10.7 09/25/2004 A1C 10.7 03/27/2004 Recent Results (from the past 4320 hour(s)) Echocardiogram Limited Result Value Biplane LVEF 46% Narrative [id number]^ANAYA^AILYN^[facility] Echocardiography Laboratory [address] [place] [id number] Name: NIKITA ANDERSON : 1950 Study Date: 06/06/2021 07:32 AM Age: 70 yrs Gender: Male Patient Location: [facility] Reason For Study: Coronary artery disease involving [...] approved by: Miko Ho 06/06/2021 09:40 AM Echocardiogram Complete Narrative [id number]^FABIENNE^ANABELLA^[facility] Echocardiography Laboratory [address] [place] [id number] Name: NIKITA ANDERSON : 1950 Study Date: 01/02/2021 03:00 PM Age: 70 yrs Gender: Male Patient Location: [facility] Reason For Study: Dyspnea on exertion Ordering Physician: ANABELLA LOVING Referring Physician: ANABELLA LOVING Performed By: Chula Rivers BSA: 2.2 m2 Height: 71 in Weight: 225 lb BP: 140/74 mmHg Procedure Complete Echo Adult. Interpretation Summary Left ventricular systolic function is normal. The visual ejection fraction is estimated at 55-60%. No regional wall motion abnormalities noted. The right ventricular systolic pressure is approximated at 35mmHg plus the right atrial pressure. Right ventricular systolic pressure is elevated, consistent with mild pulmonary hypertension. The study was technically adequate. Compared to the prior study dated 2011, there have been no changes. Left Ventricle The left ventricle is borderline dilated. There is normal left ventricular wall thickness. Left ventricular systolic function is normal. The visual ejection fraction is estimated at 55-60%. Left ventricular diastolic function is indeterminate. No regional wall motion abnormalities noted. Right Ventricle The right ventricle is normal size. The right ventricular systolic function is normal. Atria Normal left atrial size. Right atrial size is normal. Mitral Valve There is trace mitral regurgitation. Tricuspid Valve There is trace to mild tricuspid regurgitation. IVC diameter <2.1 cm collapsing >50% with sniff suggests a normal RA pressure of 3 mmHg. Right ventricular systolic pressure is elevated, consistent with mild pulmonary hypertension. The right ventricular systolic pressure is approximated at 35mmHg plus the right atrial pressure. Aortic Valve There is mild trileaflet aortic sclerosis. No aortic stenosis is present. Pulmonic Valve The pulmonic valve is not well seen, but is grossly normal. Vessels The aortic root is normal size. Pericardium There is no pericardial effusion. Rhythm The rhythm was sinus bradycardia. MMode/2D Measurements & Calculations IVSd: 1.1 cm LVIDd: 6.0 cm LVIDs: 4.2 cm LVPWd: 0.82 cm FS: 29.0 % LV mass(C)d: 231.0 grams LV mass(C)dI: 104.2 grams/m2 Ao root diam: 3.0 cm asc Aorta Diam: 3.1 cm LVOT diam: 2.3 cm LVOT area: 4.2 cm2 LA Volume (BP): 63.0 ml LA Volume Index (BP): 28.4 ml/m2 RWT: 0.27 Doppler Measurements & Calculations MV E max yohan: 92.2 cm/sec MV A max yohan: 57.2 cm/sec MV E/A: 1.6 MV dec time: 0.16 sec PA acc time: 0.13 sec TR max yohan: 296.0 cm/sec TR max P.0 mmHg E/E' av.4 Lateral E/e': 7.1 Medial E/e': 15.8 Report approved by: Christiano Vasquez MDon 01/02/2021 04:14 PM documented in this encounter Plan of Treatment Upcoming Encounters Date Type Specialty Care Team Description 05/15/2022 Hospital Encounter Surgery Singh Torres MD [facility] [address] [place] [id number] (Wo rk) 05/15/2022 Surgery Surgery Neo Torres MD BLEPHAROPLASTY BILATERAL [facility] PTOSIS REPAIR BILATERAL [address] [place] [address] (Wo rk) 06/25/2022 Ancillary Procedure Cardiology Kirk Silver MD [address] [place] [id number] (Wo rk) Scheduled Procedures Name Priority Associated Diagnoses Date/Time REPAIR, PTOSIS, BILATERAL, Dermatochalas is 05/15/2022 7:30 AM CDT WITH BILATERAL BLEPHAROPLASTY 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 REPAIR, ECTROPION, EYE, Dermatochalasis 05/15/2022 7:30 AM CDT BILATERAL 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 Scheduled Referrals Name Type Priority Associated Order Schedule Diagnoses Follow-Up with Cardiac Referral Routine: Next S/P CABG (coronar y Expected: [facility] available opening artery bypass 06/11 Provider graft) (Approximate), Expires: 06/12/2022 Follow-Up with Referral Routine: Next S/P CABG (coronary Expect ed: Chemist Inorganic available opening artery bypass graft) (Approximate), Expires: 06/12/2022 documented as of this encounter Results X-ray Chest 2 vws* (06/24/2021 1:26 PM TECHNOLOGY STRATEGIST) Anatomical Region Laterality Modality Chest Digital Radiography Specimen (Source) Anatomical Location Collection Method / Collectio n Time Received Time / Laterality Volume Impressions 06/24/2021 2:08 PM TECHNOLOGY STRATEGIST IMPRESSION: There is only a trace residual left pleural effusion. No right-sided effusion. The lungs are shane LOO MD Narrative 06/24/2021 2:08 PM TECHNOLOGY STRATEGIST XR CHEST 2 VW 06/24/2021 1:26 PM ?? INDICATION: Pleural effusion COMPARISON: 04/30/2021 Procedure Note Dave Loo MD - 06/24/2021Fo rmatting of this note might be different from the original. XR CHEST 2 VW 06/24/2021 1:26 PM INDICATION: Pleural effusion COMPARISON: 04/30/2021 IMPRESSION: There is only a trace residu al left pleural effusion. No right-sided effusion. The lungs are shane LOO MD Anabella Loving MD IMG DIAGNOSTIC IMAGING ORDER [place] NM Lexiscan stress test (nuc card) (06/24/2021 11:39 AM TECHNOLOGY STRATEGIST) Analysis Performed At [facility] Time Signature Target HR 149 RADIANT Baseline [...] / Laterality Volume Narrative 06/24/2021 2:06 PM TECHNOLOGY STRATEGIST ?The nuclear stress test is abnormal. ?There [...] the supervision of Dr. Tomy Serrano. The super vising registered nurse observed typical vasodilator side effects [...] on 06/24/2021. Nuclear Study Quality The quality improvement analyst images demonstrate d iaphragmatic attenuation. Final image [...] SDS Score: 0 Percentag e Abnormal: 0.00% Anabella Loving MD [facility] NM ORDERABLES (ABNORMAL) Basic metabolic panel (06/24/2021 8:37 AM TECHNOLOGY STRATEGIST) [facility] Time Signature Sodium 143 133 - 144 06/24/2021 LABORATORY mmol/L 9:21 AM TECHNOLOGY STRATEGIST Potassium 4.7 3.4 - 5.3 06/24/2021 LABORATORY mmol/L 9:21 AM TECHNOLOGY STRATEGIST Chloride 110 (H) 94 - 109 06/24/2021 LABORATORY mmol/L 9:21 AM TECHNOLOGY STRATEGIST Carbon Dioxide 28 20 - 32 06/24/2021 LABORATORY (CO2) mmol/L 9:21 AM TECHNOLOGY STRATEGIST Anion Gap 5 3 - 14 06/24/2021 LABORATORY mmol/L 9:21 AM TECHNOLOGY STRATEGIST Urea Nitrogen 27 7 - 30 06/24/2021 LABORATORY mg/dL 9:21 AM TECHNOLOGY STRATEGIST Creatinine 1.23 0.66 - 06/24/2021 LABORATORY 1.25 mg/dL 9:21 AM TECHNOLOGY STRATEGIST Calcium 9.0 8.5 - 10.1 06/24/2021 LABORATORY mg/dL 9:21 AM TECHNOLOGY STRATEGIST Glucose 195 (H) 70 - 99 06/24/2021 LABORATORY mg/dL 9:21 AM TECHNOLOGY STRATEGIST GFR Estimate 59 (L) >60 06/24/2021 LABORATORY mL/min/1.7 9:21 AM TECHNOLOGY STRATEGIST 3m2 Comment: As of February 17, 2021, [...] 06/10 8:37 UPPER LIMB / Unknown AM TECHNOLOGY STRATEGIST AM TECHNOLOGY STRATEGIST Unknown Anabella Loving MD LAB - BLOOD ORDERABLES Performing Organization Address City/State/ZIP Code Phon e Number SH LABORATORY [facility] [place] [phone] Care Lab [address], [address] documented in this encounter Visit Diagnoses Diagnosis NSVT (nonsustained ventricular tachycard ia) - Primary Paroxysmal ventricular tachycardia Essential hypertension Unspecified essential hypertension S/P CABG (coronary artery bypass graft) Postsurgical aortocoronary bypass status Pleural effusion Unspecified pleural effusion NSVT (nonsustained ventricular tachycard ia) Paroxysmal ventricular tachycardia S/P CABG (coronary artery bypass graft) Postsurgical aortocoronary bypass status Pleural effusion Unspecified pleural effusion 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 documented in this encounter Care Teams Cadd Manager Relationship Specialty Start Date End Date Anatoliy Jackson MD PCP - General 05/14/12 Heath More PCP - Internal Medicine INTERNAL MEDICINE - 01/06/14 MD Andreas ENDOCRINOLOGY, [facility] [address] [place] [phone] Peter Gipson PCP - Urology 04/02/15 MD Jordan [facility] [address] [address] Peter Mcmullen Assigned Musculoskeletal 06/01/20 MD Mahendra Provider [address] [place], [place] [address] Ailyn Julien Assigned Heart and 05/19/2106/15/21 A, SUPERVISOR GRAPHITE MEDICAL PARASITOLOGIST Vascular Provider [address] [place] [id number] documented as of this encounter
--- OUTSIDE RECORDS SUMMARY | 2022-05-02 12:26 | XMS_ITS | Encounter Summary ---
:1950 Author Organization [place] Address [address] [facility] [place] [address] Care Team Providers Name Role Phone Anatoliy Jackson MD Primary Care Provider Heath More MD Unavailable Peter Gipson MD Unavailable Peter Mcmullen MD Unavailable Giuliana Gomez APRN [facility] Unavailable Reason for Visit Rehab Therapy Cardiac Therapy (Routine) - Closed Specialty Diagnoses / Procedures Referred By Contact Refer red To Contact CARDIAC REHAB Diagnoses Coronary artery disease involving lone pine coronary artery of lone pine heart without angina pectoris [address] [place] [address] Phone: Referral ID Status Reason Start Date Expiration Date Visits Requ ested Visits Authorized [id number] Closed 05/01/2021 08/09/2021 36 36 Encounter Details Date Type Department Care Team Description 05/30/2021 Hospital Encounter [facility] Cardiac Jose Robertop Lucio lopez MD [address] [place] [address] and Pulmonary 2, Rh Cardiac Rehab Rehabilitation [facility] [address] [place] [address] [address] [place] [address] Social History Tobacco Use [...] been in contact with No / Unsure 05/30/2021 9:17 AM CDT someone who was confirmed [...] every tabletIndications: evening Coronary artery disease involving lone pine coronary artery of lone pine heart without angina pectoris, Hyperlipidemia LDL goal <70, S/P coronary artery stent placement senna-docusate Take 1 tablet by 20 tablet 0 04/25/2021 11/0 10/2020 (SENOKOT-S/PERICOLACE) mouth 2 times daily 8.6-50 MG as needed for tabletIndications: S/P constipation CABG (coronary artery bypass graft) documented as of this encounter Plan of Treatment Upcoming Encounters Date Type Specialty Care Team Description 05/15/2022 Hospital Encounter Surgery Singh Torres MD [facility] [address] [place] [place] [id number] (Rosalva rk) 05/15/2022 Surgery Surgery Neo Torres MD BLEPHAROPLASTY BILATERAL [facility]S, INTERNAL & SURGEONS [facility] PTOSIS REPAIR BILATERAL [address] [place] [address] [place] [address] (Wo rk) 06/25/2022 Ancillary Procedure Cardiology Kirk Silver MD [address] [place] [id number] (Rosalva rk) Scheduled Procedures Name Priority Associated [...] on filedocumented in this encounter Care Teams Health Education Director Relationship Specialty Start Date End Date Anatoliy Jackson MD PCP - General 05/14/12 Heath More PCP - Internal Medicine INTERNAL MEDICINE - 01/06/14 MD Andreas ENDOCRINOLOGY, [facility] [address] [facility] [address] [place] [phone] Peter Gipson PCP - Urology 04/02/15 MD Jordan [facility] [address] [facility] [address] [place], [place] [id number] Peter Mcmullen Assigned Musculoskeletal 06/01/20 MD Mahendra Provider [id number] [place], [place] [address] Giuliana Gomez Assigned Heart and 05/19/2106/15/21 A, GREASE MACHINE WORKER RESEARCH CONSULTANT Vascular Provider [address] [facility] [address] [place] [id number] documented as of this encounter
--- OUTSIDE RECORDS SUMMARY | 2022-05-02 12:26 | XMS_ITS | Encounter Summary ---
:1950 Author Organization [place] Address [address] [facility] [place] [address] Care Team Providers Name Role Phone Anatoliy Jackson MD Primary Care Provider Heath More MD Unavailable Peter Gipson MD Unavailable Peter Mcmullen MD Unavailable Giuliana Gomez APRN [facility] Unavailable [phone] Reason for Visit Rehab Therapy Cardiac Therapy (Routine) - Closed Specialty Diagnoses / Procedures Referred By Contact Refer red To Contact CARDIAC REHAB Diagnoses Coronary artery disease involving samish coronary artery of samish heart without angina pectoris [address] [place] [address] Phone: Referral ID Status Reason Start Date Expiration Date Visits Requ ested Visits Authorized [id number] Closed 05/01/2021 08/09/2021 36 36 Encounter Details Date Type Department Care Team Description 06/10/2021 Hospital Encounter [facility] Cardiac Lucio Sellers MD [address] [place] [address] and Pulmonary 1, Rh Cardiac Rehab Rehabilitation [facility] [address] [place] [address] [address] [place] [address] Social History Tobacco Use [...] been in contact with No / Unsure 06/10/2021 9:50 AM CDT someone who was confirmed or [...] every tabletIndications: evening Coronary artery disease involving samish coronary artery of samish heart without angina pectoris, Hyperlipidemia LDL goal [...] [facility] [address] [place] [id number] (Rosalva rk) 05/15/2022 Surgery Surgery Neo Torres MD BLEPHAROPLASTY BILATERAL [facility] IDS, INTERNAL & SURGEONS [place] PTOSIS REPAIR BILATERAL [address] [place] [address] [place] [address] (Wo rk) 06/25/2022 Ancillary Procedure Cardiology Kirk Silver MD [address] [place] [id number] (Rosalva rk) Scheduled Procedures Name Priority Associated [...] on filedocumented in this encounter Care Teams Appliance Technician Relationship Specialty Start Date End Date Anatoliy Jackson MD PCP - General 05/14/12 Heath More PCP - Internal Medicine INTERNAL MEDICINE - 01/06/14 MD Andreas ENDOCRINOLOGY, [facility] [address] [facility] [address] [place] [phone] Peter Gipson PCP - Urology 04/02/15 MD Jordan [facility] 360 [facility] 450 [place], [place] [address] Peter Mcmullen Assigned Musculoskeletal 06/01/20 MD Mahendra Provider [id number] [place], [place] [address] Giuliana Gomez Assigned Heart and 05/19/2106/15/21 A, MANAGER FAST FOOD UROLOGIC SURGEON Vascular Provider [address] [facility] [address] [place] [id number] documented as of this encounter
--- OUTSIDE RECORDS SUMMARY | 2022-05-02 12:26 | XMS_ITS | Encounter Summary ---
:1950 Author Organization [place] Address [address] [facility] [place] [address] Care Team Providers Name Role Phone Anatoliy Jackson MD Primary Care Provider Heath More MD Unavailable Peter Gipson MD Unavailable Peter Mcmullen MD Unavailable Giuliana Gomez APRN [facility] Unavailable Reason for Visit Rehab Therapy Cardiac Therapy (Routine) - Closed Specialty Diagnoses / Procedures Referred By Contact Refer red To Contact CARDIAC REHAB Diagnoses Coronary artery disease involving tazlina coronary artery of tazlina heart without angina pectoris [address] [place] [address] Phone: Referral ID Status Reason Start Date Expiration Date Visits Requ ested Visits Authorized [id number] Closed 05/01/2021 08/09/2021 36 36 Encounter Details Date Type Department Care Team Description 06/06/2021 Hospital Encounter [facility] Cardiac Jose Robertop Lucio lopez MD [address] [place] [address] and Pulmonary 2, Rh Cardiac Rehab Rehabilitation [facility] [address] [place] [address] [address] [place] [address] Social History Tobacco Use [...] every tabletIndications: evening Coronary artery disease involving tazlina coronary artery of tazlina heart without angina pectoris, Hyperlipidemia LDL goal [...] [address] [place] [id number] (Rosalva rk) 05/15/2022 Surgery Surgery Neo Torres MD BLEPHAROPLASTY BILATERAL [facility] IDS, INTERNAL & SURGEONS [place] PTOSIS REPAIR BILATERAL [address] [place] [address] [place] [address] (Wo rk) 06/25/2022 Ancillary Procedure Cardiology Kirk Silver MD [address] [place] [id number] (Rosalva rk) Scheduled Procedures Name Priority Associated [...] on filedocumented in this encounter Care Teams Spanish Medical Interpreter Relationship Specialty Start Date End Date Anatoliy Jackson MD PCP - General 05/14/12 Heath More PCP - Internal Medicine INTERNAL MEDICINE - 01/06/14 MD Andreas ENDOCRINOLOGY, [facility]ABOL[facility] [address] [facility] [address] [place] [phone] Peter Gipson PCP - Urology 04/02/15 MD Jordan [facility] [address] [facility] 450 [place], [place] [address] Peter Mcmullen Assigned Musculoskeletal 06/01/20 MD Mahendra Provider [id number] [place], [place] [address] Giuliana Gomez Assigned Heart and 05/19/2106/15/21 A, TAILOR'S AIDE HEALTH POLICY ANALYST Vascular Provider [address] [facility] [address] [address] [place] [id number] documented as of this encounter
--- OUTSIDE RECORDS SUMMARY | 2022-05-02 12:26 | XMS_ITS | Encounter Summary ---
:1950 Author Organization [place] Address [address] [facility] [place] [address] Care Team Providers Name Role Phone Anatoliy Jackson MD Primary Care Provider Heath More MD Unavailable Peter Gipson MD Unavailable Peter Mcmullen MD Unavailable Fidencio Solis MD Unavailable Reason for Referral Diagnostic Imaging NM (Routine) - Pending Review Specialty Diagnoses / Procedures Referred By Contact Refer red To Contact Diagnoses NSVT (nonsustained ventricular tachycardia) S/P CABG (coronary artery bypass graft) Fidencio Solis MD Procedures NM Lexiscan stress test (nuc card) [address] [place] [address] Referral ID Status Reason Start Date Expiration Date Visits V isits Requested Authorized [id number] Pending 06/12/2021 06/12/2022 5 5 Review RPRISE SOFTWARE ENGINEER Reason for Visit Diagnostic Imaging NM (Routine) - Pending Review Specialty Diagnoses / Procedures Referred By Contact Refer red To Contact Diagnoses NSVT (nonsustained ventricular tachycardia) S/P CABG (coronary artery bypass graft) Fidencio Solis MD Procedures NM Lexiscan stress test (nuc card) [address] [place] [address] Referral ID Status Reason Start Date Expiration Date Visits V isits Requested Authorized [id number] Pending 06/12/2021 06/12/2022 5 5 Review Encounter Details Date Type Department Care Team Description [facility]21 [facility]onsustained ventricular tachycard ia[facility] (H[facility] [address] S/P CABG (coronary artery by pass graft) [address] [place] [address] [place] [phone] Social History Tobacco Use Types Packs/Day Years [...] with No / Unsure 06/24/2021 8:35 AM ENTERPRISE SOFTWARE ENGINEER someone who was confirmed or suspected [...] every tabletIndications: evening Coronary artery disease involving torres martinez coronary artery of torres martinez heart without angina pectoris, Hyperlipidemia LDL goal <70, S/P coronary artery stent placement documented as of this encounter Plan of Treatment Upcoming Encounters Date Type Specialty Care Team Description 05/15/2022 Hospital Encounter Surgery Singh Torres MD [facility] [address] [place] [address] (Wo rk) 05/15/2022 Surgery Surgery Neo Torres MD BLEPHAROPLASTY BILATERAL [facility] IDS, INTERNAL & SURGEONS PA PTOSIS REPAIR BILATERAL [address] [place] [address] [place] [address] (Wo rk) 06/25/2022 Ancillary Procedure Cardiology Kirk Silver MD [address] [place] [address] (Wo rk) Scheduled Procedures Name Priority Associated [...] NSVT (nonsustained Re sults for this LEXISCAN ENTERPRISE SOFTWARE ENGINEER ventricular procedure are i n tachycardia) (H) the results S/P CABG (coronary section. artery bypass graft) documented in this encounter Results NM Lexiscan stress test (nuc card) (06/24/2021 11:39 AM ENTERPRISE SOFTWARE ENGINEER) Analysis Performed At Patho logist Time Signature [...] / Laterality Volume Narrative 06/24/2021 2:06 PM ENTERPRISE SOFTWARE ENGINEER ?The nuclear stress test is abnormal. ?There [...] on 06/24/2021. Nuclear Study Quality The quality engineer medical device images demonstrate d iaphragmatic attenuation. 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 Follow medication with saline flush. To be given in procedure area., Cardiac Intra-procedure sodium chloride (PF) 0.9% PF flush 10 mL Given 06/24/2021 11:33 AM ENTERPRISE SOFTWARE ENGINEER 10 mLs 10 mL, Intravenous, EVERY 10 MIN PRN, other, for peripheral IV flush post IV meds, Starting on Thu06/24/21 at 0858, Cardiac Intra-procedure sodium chloride (PF) 0.9% PF flush 10 mL Given 06/24/2021 10:02 AM ENTERPRISE SOFTWARE ENGINEER 10 mLs 10 mL, Intravenous, ONCE, On Thu06/24/21 at 1000, For 1 dose technetium Tc 99m tetrofosmin 2UD study Given 06/24/2021 11: 36 AM ENTERPRISE SOFTWARE ENGINEER 13.32 mCi (MYOVIEW) radioisotope injection 3-42 mC i 3-42 mCi, Intravenous, 2 TIMES DAILY PRN, based on schedule, Starting on Thu06/24/21 at 0952, For 2 doses, Radioisotope, supplied by and administered by Nuclear Medicine. *HW* Given 06/24/2021 10:03 AM ENTERPRISE SOFTWARE ENGINEER 3.8 mCi documented in this encounter Care Teams Rolling Machine Operator Relationship Specialty Start Date End Date Anatoliy Jackson PCP - General 05/14/12 Heath More PCP - Internal Medicine INTERNAL MEDICINE - 01/06/14 MD Andreas ENDOCRINOLOGY, [facility] [address] [facility] [address] [place] [address] Peter Gipson PCP - Urology 04/02/15 MD Jordan [facility] 360 [facility] 450 [place], [place] [phone] Peter Mcmullen Assigned Musculoskeletal 06/01/20 MD Mahendra Provider [address] [place], [place] [address] Fidencio Solis MD Assigned Heart and 06/16/21 06/29/21 [address], Vascular Provider [address] [place], [place] [address] documented as of this encounter
--- OUTSIDE RECORDS SUMMARY | 2022-05-02 12:26 | XMS_ITS | Encounter Summary ---
:1950 Author Organization [place] Address [address] [facility] [place] [address] Care Team Providers Name Role Phone Anatoliy Jackson MD Primary Care Provider Heath More MD Unavailable Peter Gipson MD Unavailable Peter Mcmullen MD Unavailable Giuliana Gomez APRN [facility] Unavailable [phone] Encounter Details Date Type Department Care Team Description 05/30/2021 Travel Social History Tobacco Use Types Packs/Day [...] [address] [place] [address] (Wo rk) 05/15/2022 Surgery Surgery Neo Torres MD BLEPHAROPLASTY BILATERAL [facility] IDS, INTERNAL & SURGEONS PA PTOSIS REPAIR BILATERAL [address] [place] [address] (Wo rk) 06/25/2022 Ancillary Procedure Cardiology Kirk Silver MD [address] [place] [address] (Wo rk) Scheduled Procedures Name Priority Associated [...] on filedocumented in this encounter Care Teams Catheter Finisher And Inspector Relationship Specialty Start Date End Date Anatoliy Jackson MD PCP - General 05/14/12 Heath More PCP - Internal Medicine INTERNAL MEDICINE - 01/06/14 MD Andreas ENDOCRINOLOGY, ENDO[facility]AB[facility] [address] [place] [address] Peter Gpison PCP - Urology 04/02/15 MD Jordan [facility] [address] [place] [address] Peter Mcmullen Assigned Musculoskeletal 06/01/20 MD Mahendra Provider [address] [place], [place] [address] Giuliana Gomez Assigned Heart and 05/19/2106/15/21 CALLIE Hernandez [facility] Vascular Provider [address] [place] [id number] documented as of this encounter
--- OUTSIDE RECORDS SUMMARY | 2022-05-02 12:26 | XMS_ITS | Encounter Summary ---
:1950 Author Organization [place] Address [address] [facility] [place] [place] [address] Care Team Providers Name Role Phone Anatoliy Jackson MD Primary Care Provider Heath More MD Unavailable Peter Gipson MD Unavailable Peter Mcmullen MD Unavailable Giuliana Gomez APRN [facility] Unavailable [phone] Encounter Details Date Type Department Care Team Description 06/14/2021 Travel Social History Tobacco Use Types Packs/Day [...] been in contact with No / Unsure 06/14/2021 9:56 AM CDT someone who was confirmed or 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 documented as of this encounter Plan of Treatment Upcoming Encounters Date Type Specialty Care Team Description 05/15/2022 Hospital Encounter Surgery Singh Torres MD [facility] [address] [place] [address] (Wo rk) 05/15/2022 Surgery Surgery Neo Torres MD BLEPHAROPLASTY BILATERAL [facility] [facility] IDS, INTERNAL & SURGEONS PA PTOSIS REPAIR BILATERAL [address] [place] [address] (Wo rk) 06/25/2022 Ancillary Procedure Cardiology Kirk Silver MD [address] [place] [address] (Wo rk) Scheduled Procedures Name Priority Associated [...] on filedocumented in this encounter Care Teams Tobacco Warehouse Manager Relationship Specialty Start Date End Date Anatoliy Jackson MD PCP - General 05/14/12 Heath More PCP - Internal Medicine INTERNAL MEDICINE - 01/06/14 MD Andreas ENDOCRINOLOGY, ENDOCRINE [facility]ABOL[facility] [address] [place] [address] Peter Gipson PCP - Urology 04/02/15 MD Jordan [facility] [address] [place] [address] Peter Mcmullen Assigned Musculoskeletal 06/01/20 MD Mahendra Provider [address] [place], [place] [address] Giuliana Gomez Assigned Heart and 05/19/2106/15/21 CALLIE Hernandez [facility] Vascular Provider [address] [place] [address] documented as of this encounter
--- OUTSIDE RECORDS SUMMARY | 2022-05-02 12:26 | XMS_ITS | Encounter Summary ---
:1950 Author Organization [place] Address [address] [facility] [place] [address] Care Team Providers Name Role Phone Anatoliy Jackson MD Primary Care Provider Heath More MD Unavailable Peter Gipson MD Unavailable Peter Mcmullen MD Unavailable Giuliana Gomez APRN [facility] Unavailable [phone] Reason for Visit Reason Comments Braille Teacher Encounter Details Date Type Department Care Team Description 06/05/2021 Documentation Only [facility] Isi Emerson, Braille Teacher Health Heart [address] [place] [address] Social History Tobacco Use Types [...] been in contact with No / Unsure 06/04/2021 9:17 AM CDT someone who was confirmed or 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 documented as of this encounter Progress Notes Laureen Emerson, RN - 06/05/2021 8:18 AM CDT Images from the original note were not included. New strip received: Continue to monitor. Wayne Emerson RN, BSN. 06/05/21 8:19 AM documented in this encounter Plan of Treatment Upcoming Encounters Date Type Specialty Care Team Description 05/15/2022 Hospital Encounter Surgery Singh Torres MD [facility] [address] [place] [address] (Wo rk) 05/15/2022 Surgery Surgery Neo Torres MD BLEPHAROPLASTY BILATERAL [facility] IDS, INTERNAL & SURGEONS PA PTOSIS REPAIR BILATERAL [address] [place] [address] [place] [address] (Wo rk) 06/25/2022 Ancillary Procedure Cardiology Kirk Silver MD [address] [place] [address] (Wo rk) Scheduled Procedures Name Priority Associated [...] on filedocumented in this encounter Care Teams Decay Control Operator Relationship Specialty Start Date End Date Anatoliy Jackson MD PCP - General 05/14/12 Heath More PCP - Internal Medicine INTERNAL MEDICINE - 01/06/14 MD Andreas ENDOCRINOLOGY, ENDOCRINE [facility] M[facility] METABOLISM [address] [place] [phone] Peter Gipson PCP - Urology 04/02/15 MD Jordan [facility] [address] [place] [address] 450 [place], [place] [address] Peter Mcmullen Assigned Musculoskeletal 06/01/20 MD Mahendra Provider [facility] [address] [place], [place] [address] Giuliana Gomez Assigned Heart and 05/19/2106/15/21 A, COAL BAGGER DIE HARDENER Vascular Provider [address] [place] [address] documented as of this encounter
--- OUTSIDE RECORDS SUMMARY | 2022-05-02 12:26 | XMS_ITS | Encounter Summary ---
:1950 Author Organization [place] Address [address] [facility] [place] [address] Care Team Providers Name Role Phone Anatoliy Jackson MD Primary Care Provider Heath More MD Unavailable Peter Gipson MD Unavailable Peter Mcmullen MD Unavailable Giuliana Gomez APRN [facility] Unavailable [phone] Encounter Details Date Type Department Care Team Description 06/10/2021 Travel Social History Tobacco Use Types Packs/Day [...] [address] [place] [address] (Wo rk) 05/15/2022 Surgery Surgery Neo Torres MD BLEPHAROPLASTY BILATERAL [place] [facility] IDS, INTERNAL & SURGEONS PA PTOSIS REPAIR BILATERAL [address] [place] [address] (Wo rk) 06/25/2022 Ancillary Procedure Cardiology Kirk Silver MD [address] [place] [address] (Wo rk) Scheduled Procedures Name Priority Associated [...] on filedocumented in this encounter Care Teams Trim Operator Relationship Specialty Start Date End Date Anatoliy Jackson MD PCP - General 05/14/12 Heath More PCP - Internal Medicine INTERNAL MEDICINE - 01/06/14 MD Andreas ENDOCRINOLOGY, ENDOCRINE [facility]ES [facility] MPLS METABOLISM [address] [place] [address] Peter Gipson PCP - Urology 04/02/15 MD Jordan [facility] [address] [place] [address] Peter Mcmullen Assigned Musculoskeletal 06/01/20 MD Mahendra Provider [address] [place], [place] [address] Giuliana Gomez Assigned Heart and 05/19/2106/15/21 CALLIE Hernandez [facility] Vascular Provider [address] [place] [id number] documented as of this encounter
--- OUTSIDE RECORDS SUMMARY | 2022-05-02 12:26 | XMS_ITS | Encounter Summary ---
:1950 Author Organization [place] Address [address] [facility] [place] [address] Care Team Providers Name Role Phone Anatoliy Jackson MD Primary Care Provider Heath More MD Unavailable Peter Gipson MD Unavailable Peter Mcmullen MD Unavailable Giuliana Gomez APRN [facility] Unavailable Reason for Visit Reason Comments Forms Encounter Details Date Type Department Care Team Description 06/12/2021 Documentation Only [facility] Isi Emerson, RN Forms [facility]-[address] [place] [address] Social History Tobacco Use [...] encounter Progress Notes Laureen Emerson RN - 06/12/2021 12:33 PM CDT Forms received form the [facility] [employer] for completion. Forms completed signed by and returned to sender with copy of medication list attached as requested. Wayne Emerson RN, BSN. 06/12/21 12:34 PM documented in this encounter Plan of Treatment Upcoming Encounters Date Type Specialty Care Team Description 05/15/2022 Hospital Encounter Surgery Singh Torres MD [facility] [address] [place] [address] (Wo rk) 05/15/2022 Surgery Surgery Neo Torres MD BLEPHAROPLASTY BILATERAL [facility] PTOSIS REPAIR BILATERAL [address] [address] [place] [address] (Wo rk) 06/25/2022 Ancillary Procedure Cardiology Kirk Silver MD [address] [place] [id number] (Wo rk) Scheduled Procedures Name Priority Associated [...] on filedocumented in this encounter Care Teams Window Shade Estimator Relationship Specialty Start Date End Date Anatoliy Jackson MD PCP - General 05/14/12 Heath More PCP - Internal Medicine INTERNAL MEDICINE - 01/06/14 MD Andreas ENDOCRINOLOGY, [facility] [address] [place] [phone] Peter Gipson PCP - Urology 04/02/15 MD Jordan [facility] [address] [place] [address] [address] [place] [address] Peter Mcmullen Assigned Musculoskeletal 06/01/20 MD Mahendra Provider [facility] [facility] [address] [place], [place] [address] Giuliana Gomez Assigned Heart and 05/19/2106/15/21 ACALLIE PEER EDUCATOR Vascular Provider [address] [place] [address] documented as of this encounter
--- OUTSIDE RECORDS SUMMARY | 2022-05-02 12:26 | XMS_ITS | Encounter Summary ---
:1950 Author Organization [place] Address [address] [facility] [place] [address] Care Team Providers Name Role Phone Anatoliy Jackson MD Primary Care Provider Heath More MD Unavailable Peter Gipson MD Unavailable Peter Mcmullen MD Unavailable Giuliana Gomez APRN [facility] Unavailable [phone] Encounter Details Date Type Department Care Team Description 06/04/2021 Travel Social History Tobacco Use Types Packs/Day [...] [address] [place] [address] (Wo rk) 05/15/2022 Surgery Surgery Neo Torres MD BLEPHAROPLASTY BILATERAL [facility], [facility] & [facility] PTOSIS REPAIR BILATERAL [address] [address] [place] [address] (Wo rk) 06/25/2022 Ancillary Procedure Cardiology Kirk Silver MD [address] [place] [id number] (Wo rk) Scheduled Procedures Name Priority Associated [...] on filedocumented in this encounter Care Teams Copy Worker Relationship Specialty Start Date End Date Anatoliy Jackson MD PCP - General 05/14/12 Heath More PCP - Internal Medicine INTERNAL MEDICINE - 01/06/14 MD Andreas ENDOCRINOLOGY, [facility] [address] [place] [address] Peter Gipson PCP - Urology 04/02/15 MD Jordan [facility] [address] [place] [address] Peter Mcmullen Assigned Musculoskeletal 06/01/20 MD Mahendra Provider [address] [place], [place] [address] Giuliana Gomez Assigned Heart and 05/19/2106/15/21 CALLIE Hernandez [facility] Vascular Provider [address] [place] [id number] documented as of this encounter
--- OUTSIDE RECORDS SUMMARY | 2022-05-02 12:26 | XMS_ITS | Encounter Summary ---
:1950 Author Organization [place] Address [address] [place] [address] Care Team Providers Name Role Phone Anatoliy Jackson MD Primary Care Provider Heath More MD Unavailable Peter Gipson MD Unavailable Peter Mcmullen MD Unavailable Giuliana Gomez APRN [facility] Unavailable Reason for Visit Rehab Therapy Cardiac Therapy (Routine) - Closed Specialty Diagnoses / Procedures Referred By Contact Refer red To Contact CARDIAC REHAB Diagnoses Coronary artery disease involving [place] coronary artery of [place] heart without angina pectoris [address] [place] [address] Phone: Referral ID Status Reason Start Date Expiration Date Visits Requ ested Visits Authorized [id number] Closed 05/01/2021 08/09/2021 36 36 Encounter Details Date Type Department Care Team Description 06/04/2021 Hospital Encounter [facility] Cardiac Jose Robertop Lucio lopez MD [address] [place] [address] and Pulmonary 2, Rh Cardiac Rehab Rehabilitation [facility] [id number] [place] [address] [address] [place] [address] Social History Tobacco Use [...] every tabletIndications: evening Coronary artery disease involving [place] coronary artery of [place] heart without angina pectoris, Hyperlipidemia LDL goal [...] [address] [place] [id number] (Rosalva rk) 05/15/2022 Surgery Surgery Neo Torres MD BLEPHAROPLASTY BILATERAL [facility], INTERNAL & SURGEONS [facility] PTOSIS REPAIR BILATERAL [address] [address] [place] [address] (Wo rk) 06/25/2022 Ancillary Procedure Cardiology Kirk Silver MD [address] [place] [id number] (Rosalva rk) Scheduled Procedures Name Priority Associated [...] on filedocumented in this encounter Care Teams Police Officer Crime Prevention Relationship Specialty Start Date End Date Anatoliy Jackson MD PCP - General 05/14/12 Heath More PCP - Internal Medicine INTERNAL MEDICINE - 01/06/14 MD Andreas ENDOCRINOLOGY, [facility] [address] [facility] [address] [place] [phone] Peter Gipson PCP - Urology 04/02/15 MD Jordan [facility] [address] [facility] [address] [place], [place] [id number] Peter Mcmullen Assigned Musculoskeletal 06/01/20 MD Mahendra Provider [id number] [place], [place] [address] Giuliana Gomez Assigned Heart and 05/19/2106/15/21 A, CREATIVE COORDINATOR AGATE SETTER Vascular Provider [address] [facility] [address] [place] [id number] documented as of this encounter
--- OUTSIDE RECORDS SUMMARY | 2022-05-02 12:26 | XMS_ITS | Encounter Summary ---
:1950 Author Organization [place] Address [address] [facility] [place] [address] Care Team Providers Name Role Phone Anatoliy Jackson MD Primary Care Provider Heath More MD Unavailable Peter Gipson MD Unavailable Peter Mcmullen MD Unavailable Giuliana Gomez APRN [facility] Unavailable [phone] Reason for Visit Rehab Therapy Cardiac Therapy (Routine) - Closed Specialty Diagnoses / Procedures Referred By Contact Refer red To Contact CARDIAC REHAB Diagnoses Coronary artery disease involving [place] coronary artery of [place] heart without angina pectoris [address] [place] [address] Phone: Referral ID Status Reason Start Date Expiration Date Visits Requ ested Visits Authorized [id number] Closed 05/01/2021 08/09/2021 36 36 Encounter Details Date Type Department Care Team Description 06/14/2021 Hospital Encounter [facility] Cardiac Jose Robertop Lucio lopez MD [address] [place] [address] and Pulmonary 2, Rh Cardiac Rehab [facility] [address] [place] [address] [address] [place] [address] Social History Tobacco Use [...] every tabletIndications: evening Coronary artery disease involving [place] coronary artery of [place] heart without angina pectoris, Hyperlipidemia LDL goal <70, S/P coronary artery stent placement documented as of this encounter Plan of Treatment Upcoming Encounters Date Type Specialty Care Team Description 05/15/2022 Hospital Encounter Surgery Singh Torres MD [facility] [address] [place] [address] (Wo rk) 05/15/2022 Surgery Surgery Neo Torres MD BLEPHAROPLASTY BILATERAL [facility], INTERNAL & SURGEONS PA PTOSIS REPAIR BILATERAL [address] [place] [address] [place] [address] (Wo rk) 06/25/2022 Ancillary Procedure Cardiology Kirk Silver MD [address] [place] [id number] (Wo rk) Scheduled Procedures Name Priority Associated [...] on filedocumented in this encounter Care Teams Grades 1 Through 6 Teacher Relationship Specialty Start Date End Date Anatoliy aJckson MD PCP - General 05/14/12 Heath More PCP - Internal Medicine INTERNAL MEDICINE - 01/06/14 MD Andreas ENDOCRINOLOGY, [facility] [address] [place] [phone] Peter Gipson PCP - Urology 04/02/15 MD Jordan [facility] 360 [facility] 450 [place], [place] [id number] Peter Mcmullen Assigned Musculoskeletal 06/01/20 MD Mahendra Provider [address] [place], [place] [address] Giuliana Gomez Assigned Heart and 05/19/2106/15/21 CALLIE Hernandez DRIER TAKE OFF TENDER Vascular Provider [address] [place] [id number] documented as of this encounter
--- OUTSIDE RECORDS SUMMARY | 2022-05-02 12:27 | XMS_ITS | Encounter Summary ---
:1950 Author Organization [place] Address [address] [facility] [place] [address] Care Team Providers Name Role Phone Anatoliy Jackson MD Primary Care Provider Heath More MD Unavailable Peter Gipson MD Unavailable Peter Mcmullen MD Unavailable Hallie Maldonado APRN [facility] Unavailable [phone] Encounter Details Date Type Department Care Team Description 05/14/2021 Hospital Encounter [facility] Fartun Brenda Ple ural effusion [facility] [address] [address] Social History Tobacco Use Types Packs/Day Years [...] been in contact with No / Unsure 05/13/2021 7:31 AM CDT someone who was confirmed or 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 documented as of this encounter Last Filed Vital Signs Vital Sign Reading Time Taken Comments Blood Pressure - - Pulse - - Temperature - - Respiratory Rate - - Oxygen Saturation 98% 05/14/2021 1:42 PM CDT Inhaled Oxygen Concentration - - Weight - - Height - - Body Mass Index - - documented in this encounter Medications at Time [...] mouth every morning amLODIPine (NORVASC) 10 Take 1 tablet (10 mg) 30 tablet 3 0 04/25/2021 05/17/2021 MG tabletIndications: by mouth daily S/P CABG (coronary artery bypass graft) aspirin (ASA) 81 MG 4 tablets (324 mg) by 30 tablet 0 04/2506/27/2021 chewable Oral or NG Tube route tabletIndications: S/P daily CABG (coronary artery bypass graft) cloNIDine (CATAPRES) 0.1 Take 1 tablet (0.1 60 tablet 3 05/17/2021 MG tabletIndications: mg) by mouth 2 times S/P CABG (coronary daily artery bypass graft) ferrous sulfate 140 (45 Take 1 tablet (140 30 tablet 1 04/1009/10/2021 Fe) MG TBCR CR mg) by mouth daily tabletIndications: S/P CABG (coronary artery bypass graft) hydrALAZINE (APRESOLINE) Take 1 tablet (25 mg) 20 tablet 1 05/07/2021 06/28/2021 25 MG tabletIndications: by mouth daily as S/P CABG (coronary needed (for blood artery bypass graft) pressure >170 mmHg) hydrALAZINE (APRESOLINE) Take 2 tablets (100 90 tablet 0 05/17/2021 50 MG tabletIndications: mg) by mouth 3 times S/P CABG (coronary daily artery bypass graft) insulin glargine (LANTUS Inject 55 Units 0 202006/27/2021 PEN) 100 UNIT/ML Subcutaneous At penIndications: Type 2 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, with long-term current use of insulin (H) insulin lispro (HUMALOG) 1 unit insulin for [...] isosorbide mononitrate Take 1 tablet (30 mg) 30 tablet 3 05/17/2021 (IMDUR) 30 MG 24 hr by mouth daily tabletIndications: S/P CABG (coronary artery bypass graft) polyethylene glycol Take 17 g by mouth 510 g 0 04/25/20 21 06/12/2021 (MIRALAX) 17 GM/Dose daily powderIndications: S/P CABG (coronary artery bypass graft) rosuvastatin (CRESTOR) Take 1 tablet (40 mg) 90 tablet 3 10/17/2021 40 MG tabletIndications: by mouth every Coronary artery disease evening involving [place] coronary artery of [place] heart without angina pectoris, Hyperlipidemia LDL goal <70, S/P coronary artery stent placement senna-docusate Take 1 tablet by 20 tablet 0 04/25/2021 11/0 10/2020 (SENOKOT-S/PERICOLACE) mouth 2 times daily 8.6-50 MG as needed for tabletIndications: S/P constipation CABG (coronary artery bypass graft) documented as of this encounter Progress Notes Bertha Antoine RN - 05/14/2021 2:05 PM CDT Patient tolerated left thoracentesis well. 1300 mL of dark kristen fluid drained done by Dr. Lagos.Dressing dry and intact with no drainage. NO albumin given. Patient states understanding discharge instructions and left ambulatory in stable condition by himself. documented in this encounter Procedure Notes Kiara Lagos DO - 05/14/2021 4:42 PM CDTAssociated Order(s): Left thoracentesis. [facility] Procedure: Left thoracentesis. Date/Time: 05/14/2021 4:42 PM Performed by: Kiara Lagos DO Authorized by: Kiara Lagos DO [employer] Site Marked: Yes Prior Images Obtained and Reviewed: Yes Required items: Required blood products, implants, devices and special equipment available Patient identity confirmed: Verbally with patient, arm band, provided demographic data and hospital-assigned identification number Patient was reevaluated immediately before administering moderate or deep sedation or anesthesia Confirmation Checklist: Patient's identity using two indicators, relevant allergies, procedure was appropriate and matched the consent or emergent situation and correct equipment/implants were available Time out: Immediately prior to the procedure a time out was called [place] Protocol: the Joint Commission [place] Protocol was followed Preparation: Patient was prepped and draped in usual sterile fashion ANESTHESIA Anesthesia: Local infiltration Local Anesthetic: Lidocaine 1% without epinephrine SEDATION Patient Sedated: No See dictated procedure note for full details. Findings: Left thoracentesis. Specimens: none Complications: None Condition: Stable PROCEDURE Patient Tolerance: Patient tolerated the procedure well with no immediate complications Length of time physician/provider present for 1:1 monitoring during sedation: 0 documented in this encounter Plan of Treatment Upcoming Encounters Date Type Specialty Care Team Description 05/15/2022 Hospital Encounter Surgery Singh Torres MD [facility] [address] [place] [address] (Wo rk) 05/15/2022 Surgery Surgery Neo Torres MD BLEPHAROPLASTY BILATERAL [facility], INTERNAL & SURGEONS PA PTOSIS REPAIR BILATERAL [address] [place] [address] (Wo rk) 06/25/2022 Ancillary Procedure Cardiology Kirk Silver MD [address] [place] [address] (Wo rk) Scheduled Procedures Name Priority Associated [...] Name Priority Date/Time Associated Diagnosis Comme nts IR PROCEDURE NOTE Routine 05/14/2021 4:42 PM Resu lts for this CDT procedure are i n the results section. US THORACENTESIS Routine 05/14/2021 2:12 PM Pleural effusion R esults for this CDT procedure are i n the results section. documented in this encounter Results Left thoracentesis. (05/14/2021 4:42 PM CDT) Narrative Kiara Lagos DO - 2020 4:42 PM CDT Kiara Lagos DO ? 05/14/2021 ??4:42 PM [facility] Procedure: Left thoracentesis. Date/Time: 05/14/2021 4:42 PM Performed by: Kiara Lagos DO Authorized by: Kiara Lagos DO [employer] Site Marked: Yes Prior Images Obtained and Reviewed: ??Ye s Required items: Required blood products, implants, devices and special equipment available ?? Patient identity confirmed: ??Verbally w ith patient, arm band, provided demographic data and hospital-assigned i dentification number Patient was reevaluated immediately befo re administering moderate or deep sedation or anesthesia Confirmation Checklist: ??Patient's iden tity using two indicators, relevant allergies, procedure was appropriate and matched the consent or emergent situation and correct equipment/implants were available Time out: Immediately prior to the proce dure a time out was called ?? [place] Protocol: the Joint Commission [place] Protocol was followed ?? Preparation: Patient was prepped and dorothy ped in usual sterile fashion ?? ANESTHESIA Anesthesia: Local infiltration Local Anesthetic: ??Lidocaine 1% without epinephrine SEDATION Patient Sedated: No ?? See dictated procedure note for full det ails. Findings: Left thoracentesis. Specimens: none Complications: None Condition: Stable PROCEDURE Patient Tolerance: ??Patient tolerated t he procedure well with no immediate complications Length of time physician/provider presen t for 1:1 monitoring during sedation: 0 Kiara Lagos DO PROCEDURE/MINOR SURGICAL ORDERABLES US Thoracentesis (05/14/2021 2:12 PM CDT) Anatomical Region Laterality Modality Chest Ultrasound Specimen (Source) Anatomical Location Collection Method / Collectio n Time Received Time / Laterality Volume Impressions 05/14/2021 2:25 PM CDT IMPRESSION: Technically successful thoracentesis without immediate complications. KIARA LAGOS DO Narrative 05/14/2021 2:25 PM CDT ULTRASOUND GUIDED THORACENTESIS ??05/14/2021 2:12 PM HISTORY: Pleural effusion FINDINGS: Limited ultrasound was perform ed to evaluate for the presence and best approach for drainage of a pleural effusion. An image is archived. Written and oral info rmed consent was obtained. A pause for the cause procedure to verify the correct patient and correct procedure. The skin overlying the left chest automotive glass mechanic iorly was prepped and draped in the usual sterile fashion. The subcut aneous tissues were anesthetized with 1% line. Under direct ultrasound guidance a catheter was advanced into the pleural space and 1300 mL of ??kristen colored fluid was drained. The catheter was keyon shyla and a sterile dressing was applied. Patient was monitored by nurse under my direct supervision throughout the exam. Ultrasound images were permane ntly stored. ??There were no immediate complications. Patient left e ultrasound suite in satisfactory condition. Procedure Note Kiara Lagos DO - 2020 ULTRASOUND GUIDED THORACENTESIS 2:12 PM HISTORY: Pleural effusion FINDINGS: Limited ultrasound was perform ed to evaluate for the presence and best approach for drainage of a pleural effusion. An image is archived. Written and oral info rmed consent was obtained. A pause for the cause procedure to verify the correct patient and correct procedure. The skin overlying the left chest automotive glass mechanic iorly was prepped and draped in the usual sterile fashion. The subcut aneous tissues were anesthetized with 1% line. Under direct ultrasound guidance a catheter was advanced into the pleural space and 1300 mL of kristen colored fluid was drained. The catheter was keyon shyla and a sterile dressing was applied. Patient was monitored by nurse under my direct supervision throughout the exam. Ultrasound images were permane ntly stored. There were no immediate complications. Patient left e ultrasound suite in satisfactory condition. IMPRESSION: Technically successful thora centesis without immediate complications. 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 documented in this encounter Administered Medications Inactive Administered Medications - up to 3 most recent administrations Medication Order MAR Action Action Date Dose Rate Site lidocaine (PF) (XYLOCAINE) 1 % Given by Other 05/14/2021 1:47 PM CDT 10 mLs injection 10 mL 10 mL, Subcutaneous, ONCE, On Thu05/14/21 at 1400, For 1 dose documented in this encounter Care Teams Analysis Or Research Safety Inspector Relationship Specialty Start Date End Date Anatoliy Jackson, PCP - General 05/14/12 Heath More PCP - Internal Medicine INTERNAL MEDICINE - 01/06/14 MD Andreas ENDOCRINOLOGY, [facility] [address] [facility] [address] [place] [address] Peter Gipson PCP - Urology 04/02/15 MD Jordan [facility] UROLOGY [address] [id number] Peter Mcmullen Assigned Musculoskeletal 06/01/20 MD Mahendra Provider [address] [place], [place] [address] Hallie Maldonado, Assigned Heart and 02/22/2105/18 BUS DRIVER/MONITOR ADVANCED PRACTICE NURSE Vascular Provider [address] [id number] documented as of this encounter
--- OUTSIDE RECORDS SUMMARY | 2022-05-02 12:27 | XMS_ITS | Encounter Summary ---
:1950 Author Organization [place] Address [address] [facility] [place] [address] Care Team Providers Name Role Phone Anatoliy Jackson MD Primary Care Provider Heath More MD Unavailable Peter Gipson MD Unavailable Peter Mcmullen MD Unavailable Giuliana Gomez APRN [facility] Unavailable [phone] Encounter Details Date Type Department Care Team Description 05/28/2021 Travel Social History Tobacco Use Types Packs/Day [...] been in contact with No / Unsure 05/28/2021 9:20 AM CDT someone who was confirmed or 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 documented as of this encounter Plan of Treatment Upcoming Encounters Date Type Specialty Care Team Description 05/15/2022 Hospital Encounter Surgery Singh Torres MD [facility] [address] [place] [address] (Wo rk) 05/15/2022 Surgery Surgery Neo Torres MD BLEPHAROPLASTY BILATERAL [facility]S, INTERNAL & SURGEONS PA PTOSIS REPAIR BILATERAL [address] [place] [address] (Wo rk) 06/25/2022 Ancillary Procedure Cardiology Kirk Silver MD [address] [place] [id number] (Wo rk) Scheduled Procedures Name Priority Associated [...] on filedocumented in this encounter Care Teams Sustainable Systems Analyst Relationship Specialty Start Date End Date Anatoliy Jackson MD PCP - General 05/14/12 Heath More PCP - Internal Medicine INTERNAL MEDICINE - 01/06/14 MD Andreas ENDOCRINOLOGY, ENDO[facility] [address] [place] [address] Peter Gipson PCP - Urology 04/02/15 MD Jordan [facility] [address] [place] [address] Peter Mcmullen Assigned Musculoskeletal 06/01/20 MD Mahendra Provider [address] [place], [place] [address] Giuliana Gomez Assigned Heart and 05/19/2106/15/21 CALLIE Hernandez [facility] Vascular Provider [address] [place] [id number] documented as of this encounter
--- OUTSIDE RECORDS SUMMARY | 2022-05-02 12:27 | XMS_ITS | Encounter Summary ---
:1950 Author Organization [place] Address [address] [place] [address] Care Team Providers Name Role Phone Anatoliy Jackson MD Primary Care Provider Heath More MD Unavailable Peter iGpson MD Unavailable Peter Mcmullen MD Unavailable Giuliana Gomez APRN [facility] Unavailable [phone] Reason for Visit Rehab Therapy Cardiac Therapy (Routine) - Closed Specialty Diagnoses / Procedures Referred By Contact Refer red To Contact CARDIAC REHAB Diagnoses Coronary artery disease involving [place] coronary artery of [place] heart without angina pectoris [address] [place] [address] Phone: Referral ID Status Reason Start Date Expiration Date Visits Requ ested Visits Authorized [id number] Closed 05/01/2021 08/09/2021 36 36 Encounter Details Date Type Department Care Team Description 05/23/2021 Hospital Encounter [facility] Cardiac Jose Robertop Lucio lopez MD [address] [place] [address] and Pulmonary 2, Rh Cardiac Rehab Rehabilitation [facility] [address] [place] [address] [address] [place] [address] Social History Tobacco Use [...] been in contact with No / Unsure 05/23/2021 9:16 AM CDT someone who was confirmed or [...] every tabletIndications: evening Coronary artery disease involving [place] coronary artery of [place] heart without angina pectoris, Hyperlipidemia LDL goal [...] [address] [place] [id number] (Rosalva rk) 05/15/2022 Surgery Surgery Neo Torres MD BLEPHAROPLASTY BILATERAL [facility] UPPER L IDS, INTERNAL & SURGEONS PA PTOSIS REPAIR BILATERAL [address] [place] [address] (Wo rk) 06/25/2022 Ancillary Procedure Cardiology Kirk Silver MD [address] [place] [id number] (Rosalva rk) Scheduled Procedures Name Priority Associated [...] on filedocumented in this encounter Care Teams Welder Apprentice Arc Relationship Specialty Start Date End Date Anatoliy Jackson MD PCP - General 05/14/12 Heath More PCP - Internal Medicine INTERNAL MEDICINE - 01/06/14 MD Andreas ENDOCRINOLOGY, ENDOCRINE [facility]ABOLISM [address] [facility] [address] [place] [phone] Peter Gipson PCP - Urology 04/02/15 MD Jordan [facility] [address] [facility] [address] [place], [place] [id number] Peter Mcmullen Assigned Musculoskeletal 06/01/20 MD Mahendra Provider [id number] [place], [place] [address] Giuliana Gomez Assigned Heart and 05/19/2106/15/21 A, ASSISTANT SALES MANAGER BI LEAD Vascular Provider [address] [facility] [address] [place] [address] documented as of this encounter
--- OUTSIDE RECORDS SUMMARY | 2022-05-02 12:27 | XMS_ITS | Encounter Summary ---
:1950 Author Organization [place] Address [address] [facility] [place] [address] Care Team Providers Name Role Phone Anatoliy Jackson MD Primary Care Provider Heath More MD Unavailable Peter Gipson MD Unavailable Peter Mcmullen MD Unavailable Hallie Maldonado APRN [facility] [employer] Unavailable [phone] Reason for Visit Reason Comments Follow Up thoracentesis yesterday; pt concerned Encounter Details Date Type Department Care Team Description 05/15/2021 Care Coordination [facility], Follow Up [facility] Elizabeth Wen RN (thoracent [facility] [place]; [place] [id number] [facility] ed) [address] [place] [address] Social History Tobacco Use Types [...] been in contact with No / Unsure 05/14/2021 2:20 PM CDT someone who was confirmed or 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 documented as of this encounter Progress Notes Elizabeth Fernandez RN - 05/15/2021 11:38 AM CDT Received VM on RN line from pt who is requesting call back as he has a question. Called and spoke to Nikita who reports he has a thoracentesis yesterday where they removed 1.3 L. He reports he's been hacking a lot after the procedure all day and night yesterday. Now this morning, hasonly had hacking episode x 1. He is concerned because he can only get his insensitive spirometer up to 1,500 today where as yesterday he was getting it up to 3,000. Denies SOB, today sats 96% on RA, yesterday he was sating 89-90%. Instructed him to continue using incentive spirometry while sitting about 10 times each hour and call if becomes SOB or sats drop below 90%. Will route to Brenda Willoughby PA-C who ordered thoracentesis. Future Appointments Date Time Provider Department Center 05/16/2021 1:00 PM 1, Rh Cardiac Rehab [facility] 05/17/2021 1:30 PM [facility] DEVICE RM [facility] 05/21/2021 4:30 PM 2, Rh Cardiac Rehab [facility] 05/23/2021 9:30 AM 2, Rh Cardiac Rehab [facility] 05/28/2021 9:30 AM 2, Rh Cardiac Rehab [facility] 05/30/2021 9:30 AM 2, Rh Cardiac Rehab [facility] 06/04/2021 9:30 AM 2, Rh Cardiac Rehab [facility] 06/06/2021 7:30 AM RSCCECHO2 [facility] 06/06/2021 8:45 AM RU LAB [facility] 06/06/2021 9:30 AM 2, Rh Cardiac Rehab [facility] 06/10/2021 10:00 AM 1, Rh Cardiac Rehab [facility] 06/12/2021 8:45 AM Fidencio Solis MD [facility]IN 06/14/2021 10:00 AM 1, Rh Cardiac Rehab [facility] 06/17/2021 10:00 AM 1, Rh Cardiac Rehab [facility] LETICIA Tripathi [place], [place] [facility] Audience Development Manager 05/15/21, 11:51 AM Elizabeth Fernandez RN - 05/15/2021 11:38 AM CDT Images from the original note were not included. Called Nikita back and left VM instructions to continue using the IS frequently to help expend his lungs and to call RN back if develops decrease in sats < 90% and/or SOB. LETICIA Tripathi [place], [place] [facility] Audience Development Manager 05/15/21, 2:35 PM documented in this encounter Plan of Treatment Upcoming Encounters Date Type Specialty Care Team Description 05/15/2022 Hospital Encounter Surgery Singh Torres MD [facility] [address] [place] [id number] (Wo rk) 05/15/2022 Surgery Surgery Neo Torres MD BLEPHAROPLASTY BILATERAL [facility] UPPER L IDS, INTERNAL & SURGEONS PA PTOSIS REPAIR BILATERAL [address] [place] [address] (Wo rk) 06/25/2022 Ancillary Procedure Cardiology Kirk Silver MD [address] [place] [address] (Wo rk) Scheduled Procedures Name Priority Associated [...] on filedocumented in this encounter Care Teams After School Tutor Relationship Specialty Start Date End Date Anatoliy Jackson PCP - General 05/14/12 Heath More PCP - Internal Medicine INTERNAL MEDICINE - 01/06/14 MD Andreas ENDOCRINOLOGY, ENDOCRINE CLINIC DIABETES & METABOLISM OF [facility] [address] Jenkins [facility] [address] [place] [phone] Peter Gipson PCP - Urology 04/02/15 MD Jordan [facility] UROLOGY 360 [facility] [address] [place], [place] [phone] Peter Mcmullen Assigned Musculoskeletal 06/01/20 MD Mahendra Provider [address] [place], [place] [address] Hallie Maldonado, Assigned Heart and 02/22/2105/18 MANAGER IMPLEMENTATION PIANO CASE MAKER Vascular Provider [address] [place] [address] documented as of this encounter
--- OUTSIDE RECORDS SUMMARY | 2022-05-02 12:27 | XMS_ITS | Encounter Summary ---
:1950 Author Organization [place] Address [address] [facility] [place] [address] Care Team Providers Name Role Phone Anatoliy Jackson MD Primary Care Provider Heath More MD Unavailable Peter Gipson MD Unavailable Peter Mcmullen MD Unavailable Hallie Maldonado APRN HOME OFFICE CLAIMS EXAMINER Unavailable [phone] Encounter Details Date Type Department Care Team Description 05/16/2021 Travel Social History Tobacco Use Types Packs/Day [...] been in contact with No / Unsure 05/16/2021 1:10 PM CDT someone who was confirmed or 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 documented as of this encounter Plan of Treatment Upcoming Encounters Date Type Specialty Care Team Description 05/15/2022 Hospital Encounter Surgery Singh Torres MD [facility] [address] [place] [address] (Wo rk) 05/15/2022 Surgery Surgery Neo Torres MD BLEPHAROPLASTY BILATERAL [facility] UPPER L IDS, INTERNAL & SURGEONS PA PTOSIS REPAIR BILATERAL [address] [place] [address] (Wo rk) 06/25/2022 Ancillary Procedure Cardiology Kirk Silver MD [address] [place] [id number] (Wo rk) Scheduled Procedures Name Priority Associated [...] on filedocumented in this encounter Care Teams Sld Inclusion Teacher Relationship Specialty Start Date End Date Anatoliy Jackson, PCP - General 05/14/12 Heath More PCP - Internal Medicine INTERNAL MEDICINE - 01/06/14 MD Andreas ENDOCRINOLOGY, ENDOCRINE [facility] DIABETES & METABOLISM OF [facility] [address] [place] [address] Peter Gipson PCP - Urology 04/02/15 MD Jordan [facility] [address] [place] [address] Peter Mcmullen Assigned Musculoskeletal 06/01/20 MD Mahendra Provider [address] [place], [place] [address] Hallie Maldonado, Assigned Heart and 02/22/2105/18 CASTING CARRIER HOME OFFICE CLAIMS EXAMINER Vascular Provider [address] [id number] documented as of this encounter
--- OUTSIDE RECORDS SUMMARY | 2022-05-02 12:27 | XMS_ITS | Encounter Summary ---
:1950 Author Organization [place] Address [address] [facility] [place] [address] Care Team Providers Name Role Phone Anatoliy Jackson MD Primary Care Provider Heath More MD Unavailable Peter Gipson MD Unavailable Peter Mcmullen MD Unavailable Hallie Maldonado APRN SUPERVISOR IN CIRCUIT TESTING Unavailable [phone] Reason for Visit Reason Onset Date Comments Refill Request 05/17/2021 hydralazine Encounter Details Date Type Department Care Team Description 05/17/2021 Refill [facility] Laureen Emerson RN Refill Request [facility] (hydralazine ) [address] [address] Social History Tobacco Use Types [...] encounter Miscellaneous Notes Telephone Encounter - Laureen mEerson RN - 05/17/2021 11:16 AM CDT Medication Refilled: Hydralazine Last office visit: 05/13/2021 with Fadi Gomez CNP Last Labs/EKG: NA Next office visit: 06/12/[address] Solis Pharmacy sent to: [email or web address] - all scripts transferred from inpatient pharmacy to primary pharmacy per pt request so refills can be obtained. Wayne Emerson RN documented in this encounter Plan of Treatment Upcoming Encounters Date Type Specialty Care Team Description 05/15/2022 Hospital Encounter Surgery Singh Torres MD [facility] [address] [place] [id number] (Rosalva rk) 05/15/2022 Surgery Surgery Neo Torres MD BLEPHAROPLASTY BILATERAL [facility] UPPER L IDS, INTERNAL & SURGEONS PA PTOSIS REPAIR BILATERAL [address] [place] [address] [place] [id number] (Wo rk) 06/25/2022 Ancillary Procedure Cardiology Kirk Silver MD [address] [place] [id number] (Rosalva rk) Scheduled Procedures Name Priority Associated [...] ptosis documented in this encounter Care Teams Reed Polisher Relationship Specialty Start Date End Date Anatoliy Jackson PCP - General 05/14/12 Heath More PCP - Internal Medicine INTERNAL MEDICINE - 01/06/14 MD Andreas ENDOCRINOLOGY, ENDOCRINE [facility]INIC DIABETES & METABOLISM OF [facility] [address] [place] [phone] Peter Gipson PCP - Urology 04/02/15 MD Jordan [facility] UROLOGY [address] [place] [address] [address] [place], [place] [phone] Peter Mcmullen Assigned Musculoskeletal 06/01/20 MD Mahendra Provider [address] [place], [place] [address] Hallie Maldonado, Assigned Heart and 02/22/2105/18 STENOGRAPHER SECRETARY SUPERVISOR IN CIRCUIT TESTING Vascular Provider [address] [address] documented as of this encounter
--- OUTSIDE RECORDS SUMMARY | 2022-05-02 12:27 | XMS_ITS | Encounter Summary ---
:1950 Author Organization [place] Address [address] [facility] [address] Care Team Providers Name Role Phone Anatoliy Jackson MD Primary Care Provider Heath More MD Unavailable Peter Gipson MD Unavailable Peter Mcmullen MD Unavailable Hallie Maldonado APRN FLOOR TRADER Unavailable [phone] Reason for Visit Rehab Therapy Cardiac Therapy (Routine) - Closed Specialty Diagnoses / Procedures Referred By Contact Refer red To Contact CARDIAC REHAB Diagnoses Coronary artery disease involving [place] coronary artery of [place] heart without angina pectoris [address] [place] [address] Phone: Referral ID Status Reason Start Date Expiration Date Visits Requ ested Visits Authorized [id number] Closed 05/01/2021 08/09/2021 36 36 Encounter Details Date Type Department Care Team Description 05/16/2021 Hospital Encounter [facility] Cardiac Jose Robertop Lucio lopez MD [address] [place] [address] and Pulmonary 1, Rh Cardiac Rehab Rehabilitation [address] [place] [address] Social History Tobacco Use [...] mouth every Coronary artery disease evening involving [place] coronary artery of [place] heart without angina pectoris, Hyperlipidemia LDL goal <70, S/P coronary artery stent placement senna-docusate Take 1 tablet by 20 tablet 0 04/25/2021 110 10/2020 (SENOKOT-S/PERICOLACE) mouth 2 times daily 8.6-50 MG as needed for tabletIndications: S/P constipation CABG (coronary artery bypass graft) documented as of this encounter Plan of Treatment Upcoming Encounters Date Type Specialty Care Team Description 05/15/2022 Hospital Encounter Surgery Singh Torres MD [facility] [address] [place] [address] (Wo rk) 05/15/2022 Surgery Surgery Neo Torres MD BLEPHAROPLASTY BILATERAL [facility] UPPER L IDS, INTERNAL & SURGEONS PA PTOSIS REPAIR BILATERAL [address] [place] [address] [place] [id number] (Wo rk) 06/25/2022 Ancillary Procedure Cardiology Kirk Silver MD [address] [place] [id number] (Wo rk) Scheduled Procedures Name Priority Associated [...] on filedocumented in this encounter Care Teams Plant Machinist Relationship Specialty Start Date End Date Anatoliy Jackson, PCP - General 05/14/12 Heath More PCP - Internal Medicine INTERNAL MEDICINE - 01/06/14 MD Andreas ENDOCRINOLOGY, ENDOCRINE [facility] DIAB[facility]ES [facility]ABOLISM [facility] [address] [facility] [address] [place] [phone] Peter Gipson PCP - Urology 04/02/15 MD Jordan [facility] 360 [facility] 450 [place], [place] [id number] Peter Mcmullen Assigned Musculoskeletal 06/01/20 MD Mahendra Provider [address] [facility] [address] [place], [place] [address] Hallie Maldonado, Assigned Heart and 02/22/2105/18 STEMMER MACHINE FLOOR TRADER Vascular Provider [address] [id number] documented as of this encounter
--- OUTSIDE RECORDS SUMMARY | 2022-05-02 12:27 | XMS_ITS | Encounter Summary ---
:1950 Author Organization [place] Address [address] [facility] [place] [address] Care Team Providers Name Role Phone Anatoliy Jackson MD Primary Care Provider Heath More MD Unavailable Peter Gipson MD Unavailable Peter Mcmullen MD Unavailable Hallie Maldonado APRN ESTATE PLANNING [place] Unavailable [phone] Reason for Visit Rehab Therapy Cardiac Therapy (Routine) - Closed Specialty Diagnoses / Procedures Referred By Contact Refer red To Contact CARDIAC REHAB Diagnoses Coronary artery disease involving [place] coronary artery of [place] heart without angina pectoris [address] [place] [address] Phone: Referral ID Status Reason Start Date Expiration Date Visits Requ ested Visits Authorized [id number] Closed 05/01/2021 08/09/2021 36 36 Encounter Details Date Type Department Care Team Description 05/14/2021 Hospital Encounter [facility] Cardiac Jose Robertop Lucio lopez MD [address] [place] [address] and Pulmonary 2, Rh Cardiac Rehab Rehabilitation [address] [place] [address] Social History Tobacco Use [...] mouth every Coronary artery disease evening involving [place] coronary artery of [place] heart without angina pectoris, Hyperlipidemia LDL goal [...] [address] [place] [id number] (Wo rk) 05/15/2022 Surgery Surgery Neo Torres MD BLEPHAROPLASTY BILATERAL [facility] UPPER L IDS, INTERNAL & SURGEONS PA PTOSIS REPAIR BILATERAL [address] [place] [address] (Wo rk) 06/25/2022 Ancillary Procedure Cardiology Kirk Silver MD [address] [place] [id number] (Wo rk) Scheduled Procedures Name Priority Associated [...] on filedocumented in this encounter Care Teams Customer Training Specialist Relationship Specialty Start Date End Date Anatoliy Jackson, PCP - General 05/14/12 Heath More PCP - Internal Medicine INTERNAL MEDICINE - 01/06/14 MD Andreas ENDOCRINOLOGY, ENDOCRINE CLINIC DIABETES & METABOLISM [facility] [address] [facility] [address] [place] [phone] Peter Gipson PCP - Urology 04/02/15 MD Jordan [facility] [address] [facility] 450 [place], [place] [phone] Peter Mcmullen Assigned Musculoskeletal 06/01/20 MD Mahendra Provider [address] [facility] [address] [place], [place] [address] Hallie Maldonado, Assigned Heart and 02/22/2105/18 MENDING CARRIER ESTATE PLANNING [place] Vascular Provider [address] [id number] documented as of this encounter
--- OUTSIDE RECORDS SUMMARY | 2022-05-02 12:27 | XMS_ITS | Encounter Summary ---
:1950 Author Organization [place] Address [address] [place] [address] Care Team Providers Name Role Phone Anatoliy Jackson MD Primary Care Provider Heath More MD Unavailable Peter Gipson MD Unavailable Peter Mcmullen MD Unavailable Hallie Maldonado APRN NATUROPATHIC PHYSICIAN Unavailable [phone] Encounter Details Date Type Department Care Team Description 05/17/2021 Travel Social History Tobacco Use Types Packs/Day [...] been in contact with No / Unsure 05/17/2021 1:29 PM CDT someone who was confirmed or 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 documented as of this encounter Plan of Treatment Upcoming Encounters Date Type Specialty Care Team Description 05/15/2022 Hospital Encounter Surgery Singh Torres MD [facility] [address] [place] [address] (Wo rk) 05/15/2022 Surgery Surgery Neo Torres MD BLEPHAROPLASTY BILATERAL [facility] UPP[facility] L IDS, INTERNAL & SURGEONS PA PTOSIS REPAIR BILATERAL [address] [place] [address] (Wo rk) 06/25/2022 Ancillary Procedure Cardiology Kirk Silver MD [address] [place] [address] (Wo rk) Scheduled Procedures Name Priority Associated [...] on filedocumented in this encounter Care Teams Yeast Distiller Relationship Specialty Start Date End Date Anatoliy Jackson, PCP - General 05/14/12 Heath More PCP - Internal Medicine INTERNAL MEDICINE - 01/06/14 MD Andreas ENDOCRINOLOGY, ENDOCRINE CLINIC DIABETES & METABOLISM OF [facility] [address] [place] [address] Peter Gipson PCP - Urology 04/02/15 MD Jordan [facility] [address] [place] [address] Peter Mcmullen Assigned Musculoskeletal 06/01/20 MD Mahendra Provider [address] [place], [place] [address] Hallie Maldonado, Assigned Heart and 02/22/2105/18 MORTUARY BEAUTICIAN NATUROPATHIC PHYSICIAN Vascular Provider [address] [address] documented as of this encounter
--- OUTSIDE RECORDS SUMMARY | 2022-05-02 12:27 | XMS_ITS | Encounter Summary ---
:1950 Author Organization [place] Address [address] [facility] [place] [address] Care Team Providers Name Role Phone Anatoliy Jackson MD Primary Care Provider Heath More MD Unavailable Peter Gipson MD Unavailable Peter Mcmullen MD Unavailable Hallie Maldonado APRN CARRIER BLOWER Unavailable [phone] Reason for Visit Reason Onset Date Comments Clinic Care Coordination - Follow-up 05/15/2021 Encounter Details Date Type Department Care Team Description 05/15/2021 Telephone [facility] Mouna Win, Clinic Care [address] [place] [address] Follow-up [phone] Social History Tobacco Use Types Packs/Day Years [...] this encounter Miscellaneous Notes Telephone Encounter - Mouna Win, RN - 05/15/2021 12:16 PM CDT Patient called post thoracentesis with increased coughing and inability to get IS up as high pre tap. Instructed him to continue IS us 4-6 times a day with controlled coughing while splinting chest. Rationale given. Instructed to call for temp > 101.0 or expectorating colored sputum. patient statesunderstating. documented in this encounter Plan of Treatment Upcoming Encounters Date Type Specialty Care Team Description 05/15/2022 Hospital Encounter Surgery Singh Torres MD [facility] [address] [place] [address] (Wo rk) 05/15/2022 Surgery Surgery Neo Torres MD BLEPHAROPLASTY BILATERAL [facility] UPPER L IDS, INTERNAL & SURGEONS PA PTOSIS REPAIR BILATERAL [address] [place] [address] [place] [address] (Wo rk) 06/25/2022 Ancillary Procedure Cardiology Kirk Silver MD [address] [place] [address] (Wo rk) Scheduled Procedures Name Priority Associated [...] on filedocumented in this encounter Care Teams Petroleum Geology Faculty Member Relationship Specialty Start Date End Date Anatoliy Jackson, PCP - General 05/14/12 Heath More PCP - Internal Medicine INTERNAL MEDICINE - 01/06/14 MD Andreas ENDOCRINOLOGY, ENDOCRINE CLINIC DIABETES & METABOLISM [facility] [address]01 [facility] [address] [place] [phone] Peter Gipson PCP - Urology 04/02/15 MD Jordan [facility] 360 [facility] 450 [place] [address] Peter Mcmullen Assigned Musculoskeletal 06/01/20 MD Mahendra Provider [facility]2 [address] [facility] [address] [place], [place] [address] Hallie Maldonado, Assigned Heart and 02/22/2105/18 PSYCHOLOGIST EDUCATIONAL CARRIER BLOWER Vascular Provider [address] [id number] documented as of this encounter
--- OUTSIDE RECORDS SUMMARY | 2022-05-02 12:27 | XMS_ITS | Encounter Summary ---
:1950 Author Organization [employer] Address [address] [facility] [place] [place] [address] Care Team Providers Name Role Phone Anatoliy Jackson MD Primary Care Provider Heath More MD Unavailable Peter Gipson MD Unavailable Peter Mcmullen MD Unavailable Giuliana Gomez APRN [facility] Unavailable Reason for Visit Rehab Therapy Cardiac Therapy (Routine) - Closed Specialty Diagnoses / Procedures Referred By Contact Refer red To Contact CARDIAC REHAB Diagnoses Coronary artery disease involving [place] coronary artery of [place] heart without angina pectoris [address] [place] [address] Phone: Referral ID Status Reason Start Date Expiration Date Visits Requ ested Visits Authorized [id number] Closed 05/01/2021 08/09/2021 36 36 Encounter Details Date Type Department Care Team Description 05/21/2021 Hospital Encounter [facility] Cardiac Jose Robertop Lucio lopez MD [address] [place] [address] and Pulmonary 2, Rh Cardiac Rehab Rehabilitation [facility] [address] [place] [address] [address] [place] [address] Social History Tobacco Use [...] been in contact with No / Unsure 05/21/2021 4:29 PM CDT someone who was confirmed or [...] (NORVASC) 10 Take 1 tablet (10 mg) 90 tablet 0 1 05/23/2021 MG tabletIndications: by mouth daily S/P CABG (coronary artery bypass graft) amLODIPine (NORVASC) 5 Take 1 tablet (5 [...] every tabletIndications: evening Coronary artery disease involving [place] coronary artery of [place] heart without angina pectoris, Hyperlipidemia LDL goal [...] [address] [place] [id number] (Wo rk) 05/15/2022 Surgery Surgery Neo Torres MD BLEPHAROPLASTY BILATERAL [facility] UPPER L IDS, INTERNAL & SURGEONS PA PTOSIS REPAIR BILATERAL [address] [place] [id number] (Wo rk) 06/25/2022 Ancillary Procedure Cardiology Kirk Silver MD [address] [place] [address] (Wo rk) Scheduled Procedures Name Priority Associated [...] on filedocumented in this encounter Care Teams Special Forces Communications Sergeant Relationship Specialty Start Date End Date Anatoliy Jackson MD PCP - General 05/14/12 Heath More PCP - Internal Medicine INTERNAL MEDICINE - 01/06/14 MD Andreas ENDOCRINOLOGY, [facility] [address] [place] [address] Peter Gipson PCP - Urology 04/02/15 MD Jordan [facility] [address] [place] [id number] Peter Mcmullen Assigned Musculoskeletal 06/01/20 MD Mahendra Provider [address] [place], [place] [address] [place], [place] [address] Giuliana Gomez Assigned Heart and 05/19/2106/15/21 A, CMM PROGRAMMER GRAINING PRESS OPERATOR Vascular Provider [address] [place] [id number] documented as of this encounter
--- OUTSIDE RECORDS SUMMARY | 2022-05-02 12:27 | XMS_ITS | Encounter Summary ---
:1950 Author Organization [place] Address [address] [facility] [place] [address] Care Team Providers Name Role Phone Anatoliy Jackson MD Primary Care Provider Heath More MD Unavailable Peter Gipson MD Unavailable Peter Mcmullen MD Unavailable Giuliana Gomez APRN [facility] Unavailable [phone] Reason for Visit Rehab Therapy Cardiac Therapy (Routine) - Closed Specialty Diagnoses / Procedures Referred By Contact Refer red To Contact CARDIAC REHAB Diagnoses Coronary artery disease involving [place] coronary artery of [place] heart without angina pectoris [address] [place] [address] Phone: Referral ID Status Reason Start Date Expiration Date Visits Requ ested Visits Authorized [id number] Closed 05/01/2021 08/09/2021 36 36 Encounter Details Date Type Department Care Team Description 05/28/2021 Hospital Encounter [facility] Cardiac Jose Robertop Lucio lopez MD [address] [place] [address] and Pulmonary 2, Rh Cardiac Rehab Rehabilitation [facility] [id number] [place] [address] [address] [place] [address] Social History Tobacco Use [...] every tabletIndications: evening Coronary artery disease involving levelock coronary artery of levelock heart without angina pectoris, Hyperlipidemia LDL goal [...] [address] [place] [id number] (Rosalva rk) 05/15/2022 Surgery Surgery Neo Torres MD BLEPHAROPLASTY BILATERAL [facility] UPPER L IDS, INTERNAL & SURGEONS PA PTOSIS REPAIR BILATERAL [address] [place] [address] (Wo rk) 06/25/2022 Ancillary Procedure Cardiology Kirk Silver MD [address] [place] [id number] (Rosalva rk) Scheduled Procedures Name Priority Associated [...] on filedocumented in this encounter Care Teams Divorce Attorney Relationship Specialty Start Date End Date Anatoliy Jackson MD PCP - General 05/14/12 Heath More PCP - Internal Medicine INTERNAL MEDICINE - 01/06/14 MD Andreas ENDOCRINOLOGY, [facility] [address] [facility] [address] [place] [phone] Peter Gipson PCP - Urology 04/02/15 MD Jordan [facility] [address] [facility] [address] [place], [place] [id number] Peter Mcmullen Assigned Musculoskeletal 06/01/20 MD Mahendra Provider [facility] [id number] [place], [place] [address] Giuliana Gomez Assigned Heart and 05/19/2106/15/21 A, ENROLLMENT CLERK COLON THERAPIST Vascular Provider [address] [facility] [address] [place] [address] documented as of this encounter
--- OUTSIDE RECORDS SUMMARY | 2022-05-02 12:27 | XMS_ITS | Encounter Summary ---
:1950 Author Organization [place] Address [address] [facility] [place] [address] Care Team Providers Name Role Phone Anatoliy Jackson MD Primary Care Provider Heath More MD Unavailable Peter Gipson MD Unavailable Peter Mcmullen MD Unavailable Giuliana Gomez APRN [facility] Unavailable [phone] Encounter Details Date Type Department Care Team Description 05/23/2021 Travel Social History Tobacco Use Types Packs/Day [...] [address] [place] [address] (Wo rk) 05/15/2022 Surgery Surgery Noe Torres MD BLEPHAROPLASTY BILATERAL [facility] L IDS, INTERNAL & SURGEONS PA PTOSIS REPAIR BILATERAL [address] [place] [address] (Wo rk) 06/25/2022 Ancillary Procedure Cardiology Kirk Silver MD [address] [place] [id number] (Wo rk) Scheduled Procedures Name Priority Associated [...] on filedocumented in this encounter Care Teams Tube Bending Machine Operator Relationship Specialty Start Date End Date Anatoliy Jackson MD PCP - General 05/14/12 Heath More PCP - Internal Medicine INTERNAL MEDICINE - 01/06/14 MD Andreas ENDOCRINOLOGY, [facility] [address] [place] [address] Peter Gipson PCP - Urology 04/02/15 MD Jordan [facility] [address] [place] [address] Peter Mcmullen Assigned Musculoskeletal 06/01/20 MD Mahendra Provider [address] [place], [place] [address] Giuliana Gomez Assigned Heart and 05/19/2106/15/21 CALLIE Hernandez [facility] Vascular Provider [address] [place] [id number] documented as of this encounter
--- OUTSIDE RECORDS SUMMARY | 2022-05-02 12:27 | XMS_ITS | Encounter Summary ---
:1950 Author Organization [place] Address [address] [facility] [place] [address] Care Team Providers Name Role Phone Anatoliy Jackson MD Primary Care Provider Heath More MD Unavailable Peter Gipson MD Unavailable Peter Mcmullen MD Unavailable Hallie Maldonado APRN [employer] Unavailable [phone] Reason for Referral CV Testing (Routine) - Closed Specialty Diagnoses / Procedures Referred By Contact Refer red To Contact Diagnoses Coronary artery disease involving [place] coronary artery of [place] heart without angina pectoris Coronary artery disease involving coronary bypass graft of [place] heart without angina pectoris Giuliana Gomez APRN Procedures Cardiac Event Monitor Adult Pediatric EDGE PLUGGER [address] [facility] [address] [place] [address] Referral ID Status Reason Start Date Expiration Date Visits Requ ested Visits Authorized [id number] Closed 05/13/2021 05/13/2022 1 1 Reason for Visit CV Testing (Routine) - Closed Specialty Diagnoses / Procedures Referred By Contact Refer red To Contact Diagnoses Coronary artery disease involving [place] coronary artery of [place] heart without angina pectoris Coronary artery disease involving coronary bypass graft of [place] heart without angina pectoris Giuliana Gomez APRN Procedures Cardiac Event Monitor Adult Pediatric EDGE PLUGGER [address] [place] [address] Referral ID Status Reason Start Date Expiration Date Visits Requ ested Visits Authorized [id number] Closed 05/13/2021 05/13/2022 1 1 Encounter Details Date Type Department Care Team Description 05/17[facility]21 [facility] Coronary artery disease involving [place] coronary artery of [place] heart without angina pectoris; [facility] [address] Coronary artery disease involving coronary bypass graft of [place] heart without angina pectoris [facility], [facility] [address] [address] [place], [place] [address] [address] [place], [place] (Work) [address] Social History Tobacco Use [...] CABG (coronary artery bypass graft) cloNIDine (CATAPRES) Take 1 tablet (0.1 180 [...] every tabletIndications: evening Coronary artery disease involving [place] coronary artery of [place] heart without angina pectoris, Hyperlipidemia LDL goal <70, S/P coronary artery stent placement senna-docusate Take 1 tablet by 20 tablet 0 04/25/2021 1110/2020 (SENOKOT-S/PERICOLACE) mouth 2 times daily 8.6-50 MG as needed for tabletIndications: S/P constipation CABG (coronary artery bypass graft) documented as of this encounter Progress Notes Genaro Dye - 05/17/2021 1:56 PM CDT Placed a 30 day cardiac event monitor. documented in this encounter Plan of Treatment Upcoming Encounters Date Type Specialty Care Team Description 05/15/2022 Hospital Encounter Surgery Singh Torres MD [facility] [address] [place] [address] (Wo rk) 05/15/2022 Surgery Surgery Neo Torres MD BLEPHAROPLASTY BILATERAL [facility]PP[facility] L IDS, INTERNAL & SURGEONS PA PTOSIS REPAIR BILATERAL [address] [place] [phone] (Wo rk) 06/25/2022 Ancillary Procedure Cardiology Kirk Silver MD [address] [place] [phone] (Wo rk) Scheduled Procedures Name Priority Associated Diagnoses Date/Time REPAIR, PTOSIS, BILATERAL, Dermatochalas is 05/15/2022 7:30 AM CDT WITH BILATERAL BLEPHAROPLASTY 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 heart without angina pectoris Coronary artery disease involving coronary bypass graft of [place] heart without angina pectoris documented in this encounter Results CARDIAC EVENT MONITOR APPLICATION AND PROVIDER INTERPRETATION (05/17/2021 1:55 PM CDT) Anatomical Region Laterality Modality Other Specimen (Source) Anatomical Location Collection Method / Collectio n Time Received Time / Laterality Volume Narrative This result has an attachment that is no t available. 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 [address] [place] [phone] Peter Gipson PCP - Urology 04/02/15 MD Jordan [facility] 360 [facility] [address] [place], [place] [id number] Peter Mcmullen Assigned Musculoskeletal 06/01/20 MD Mahendra Provider [facility] [address] [place], [place] [address] Hallie Maldonado, Assigned Heart and 02/22/2105/18 SUPERVISOR RECEIVING AND PROCESSING EDGE PLUGGER Vascular Provider [address] [place] [id number] documented as of this encounter
--- OUTSIDE RECORDS SUMMARY | 2022-05-02 12:27 | XMS_ITS | Encounter Summary ---
:1950 Author Organization [place] Address [address] [facility] [place] [address] Care Team Providers Name Role Phone Anatoliy Jackson MD Primary Care Provider Heath More MD Unavailable Peter Gipson MD Unavailable Peter Mcmullen MD Unavailable Giuliana Gomez APRN [facility] Unavailable Reason for Visit Reason Comments Critical Care Registered Nurse Encounter Details Date Type Department Care Team Description 05/21/2021 Documentation Only [facility] Isi Emerson, Critical Care Registered Nurse Health [facility] [address] [place] [address] Social History Tobacco Use Types [...] encounter Progress Notes Laureen Emerson, RN - 05/21/2021 8:26 AM CDT Images from the original note were not included. ELOINA W/Dr. Solis for follow up in pt with Hx of hypertension, hyperlipidemia, diabetes, chronic kidney disease, coronary artery disease status post PCI, obesity (BMI 32 kg/m??). Pt reports increased GRADY / Fatigue at OV, pt has intermittent bradycardia. Plan: - decrease coreg form 12.5mg BID to 6.25mg BID - Nuc stress test to rule out ischemia - TTE - 12/25/20: nuc stress test positive - plan for cath. Pt had low Hgb - pt to follow up with PMD for eval of potential GIB prior to cath due to dark stool. - 02/18/21 ALL W/Hallie Valdez. : H&P for cath - stable Hgb - no dark stools, off iron supplement. - 03/13/21 LHC: per Dr. Valero performing: He has 3 vessel disease, however the RCA and LAD lesions are amenable to PCI. The RCA is heavily calcified and would need atherectomy. Options are PCI RCA/LAD versus CAB with DOUGLASS to LAD and SVG to PDA possibly M2 if large enough. - 03/18/21 OV W/Hallie Valdez: plan for CV surgery consult. - 04/19/21 CABG X3 completed. - 04/27/21 ED visit for weakness: lisinopril decreased from 40mg daily to 20mg daily. ~04/28/21 - 05/01/21 Hospital admit for encephalopathy and GENO, pleural effusion, HTN~ - lisinopril and lasix stopped due to GENO and bradycardia. - Plan for Holter at ME. -05/07/21 OV W/Fadi Mannchen: start lasix 20mg daily, holter ordered. - 05/08/21 OV W/CV surgery: plan for thoracentesis - 05/09/21 Holter completed: sent to Dr. Solis for review. Plan for 30 day event monitor due to noted Afib episode. Hold AC initiation at this time. - 05/13/21 Pt called with BP 106/53 - pt to stop lasix - 05/14/21 thoracentesis with 1300ml removed. - 05/17/21 30 day event monitor placed. ++ call placed to pt to review how he is feeling. No answer / LVM Routing to MD for review. Wayne Emerson RN, BSN. Laureen Emerson RN - 05/21/2021 8:26 AM CDT Images from the original note were not included. Call placed to pt to review recommendations. Pt reports that he does not recall any sxs during the time frame mention relating to recorded event. Pt reports he is usually watching television around that time and can not think of any abnormal sensations. Pt states he is doing well today. No reports of CP / Palpitations. Pt went for his normal mile walk this am without complaint. Review of monitor findings completed with pt. Pt verbalized understanding. Pt states he takes his BP/ HR a few times a day. He recently has been taking his BP / HR before each med dose to monitor but does not always take one after a medication dose. Pt reports he is about to go to rehab and will drop off the log that he has been keeping over the past couple weeks. Will await receipt of list and will review. Wayne Emerson RN, BSN. 05/21/21 3:46 PM Laureen Emerson RN - 05/21/2021 8:26 AM CDT Images from the original note were not included. BP / HR log reviewed. Call placed to pt to review plan per Dr. Solis Pt unavailable at time of call - left message with pt for call back. Wayne Emerson RN, BSN. 05/22/21 1:42 PM ++ call back received form pt. Review of results and recommendations completed with pt. Pt verbalized understanding. Orders placed per MD. documented in this encounter Plan of Treatment Upcoming Encounters Date Type Specialty Care Team Description 05/15/2022 Hospital Encounter Surgery Singh Torres MD [facility] [address] [place] [address] (Wo rk) 05/15/2022 Surgery Surgery Neo Torres MD BLEPHAROPLASTY BILATERAL [facility]PP[facility] IDS, INTERNAL & SURGEONS PA PTOSIS REPAIR BILATERAL [address] [place] [phone] (Wo rk) 06/25/2022 Ancillary Procedure Cardiology Kirk Silver MD [address] [place] [id number] (Wo rk) Scheduled Procedures Name Priority Associated [...] ptosis documented in this encounter Care Teams Motor Man Relationship Specialty Start Date End Date Anatoliy Jackson MD PCP - General 05/14/12 Heath More PCP - Internal Medicine INTERNAL MEDICINE - 01/06/14 MD Andreas ENDOCRINOLOGY, [facility] [address] [place] [phone] Peter Gipson PCP - Urology 04/02/15 MD Jordan [facility] [address] [place] [address] Peter Mcmullen Assigned Musculoskeletal 06/01/20 MD Mahendra Provider [address] [place] [address] Giuliana Gomez Assigned Heart and 05/19/2106/15/21 A, CALLIE PBX WIRE CHIEF Vascular Provider [address] [place] [id number] documented as of this encounter
--- OUTSIDE RECORDS SUMMARY | 2022-05-02 12:27 | XMS_ITS | Encounter Summary ---
:1950 Author Organization [place] Address [address] [facility] [place] [address] Care Team Providers Name Role Phone Anatoliy Jackson MD Primary Care Provider Heath More MD Unavailable Peter Gipson MD Unavailable Peter Mcmullen MD Unavailable Hallie Maldonado APRN DYED YARN OPERATOR Unavailable [phone] Encounter Details Date Type Department Care Team Description 05/14/2021 Travel Social History Tobacco Use Types Packs/Day [...] 05/15/2022 Hospital Encounter Surgery Singh Torres MD [facility] [address] [place] [address] (Wo rk) 05/15/2022 Surgery Surgery Neo Torres MD BLEPHAROPLASTY BILATERAL [facility] IDS, INTERNAL & SURGEONS PA PTOSIS REPAIR BILATERAL [address] [place] [address] (Wo rk) 06/25/2022 Ancillary Procedure Cardiology Kirk Silver MD [address] [place] [id number] (Wo rk) Scheduled Procedures Name Priority Associated [...] filedocumented in this encounter Care Teams Health Safety Specialist Relationship Specialty Start Date End Date Anatoliy Jackson, PCP - General 05/14/12 Heath More PCP - Internal Medicine INTERNAL MEDICINE - 01/06/14 MD Andreas ENDOCRINOLOGY, [facility] [address] [place] [address] Peter Gipson PCP - Urology 04/02/15 MD Jordan [facility] [address] [place] [address] Peter Mcmullen Assigned Musculoskeletal 06/01/20 MD Mahendra Provider [address] [place], [place] [address] Hallie Maldonado, Assigned Heart and 02/22/2105/18 THERMOSTATIC CONTROLS SUPERVISOR DYED YARN OPERATOR Vascular Provider [address] [id number] documented as of this encounter
--- OUTSIDE RECORDS SUMMARY | 2022-05-02 12:27 | XMS_ITS | Encounter Summary ---
:1950 Author Organization [place] Address [address] [place] [address] Care Team Providers Name Role Phone Anatoliy Jackson MD Primary Care Provider Heath More MD Unavailable Peter Gipson MD Unavailable Peter Mcmullen MD Unavailable Giuliana Gomez APRN [facility] Unavailable [phone] Encounter Details Date Type Department Care Team Description 05/21/2021 Travel Social History Tobacco Use Types Packs/Day [...] [address] [place] [address] (Wo rk) 05/15/2022 Surgery Surgery Neo Torres MD BLEPHAROPLASTY BILATERAL [facility] UPP[facility] L IDS, INTERNAL & SURGEONS PA PTOSIS REPAIR BILATERAL [address] [place] [address] (Wo rk) 06/25/2022 Ancillary Procedure Cardiology Kirk Silver MD [address] [place] [id number] (Wo rk) Scheduled Procedures Name Priority Associated [...] on filedocumented in this encounter Care Teams Sand Technologist Relationship Specialty Start Date End Date Anatoliy Jackson MD PCP - General 05/14/12 Heath More PCP - Internal Medicine INTERNAL MEDICINE - 01/06/14 MD Andreas ENDOCRINOLOGY, [facility] [address] [place] [address] Peter Gipson PCP - Urology 04/02/15 MD Jordan [facility] [address] [place] [address] Peter Mcmullen Assigned Musculoskeletal 06/01/20 MD Mahendra Provider [address] [place], [place] [address] Giuliana Gomez Assigned Heart and 05/19/2106/15/21 CALLIE Hernandez [facility] Vascular Provider [address] [place] [id number] documented as of this encounter
--- OUTSIDE RECORDS SUMMARY | 2022-05-02 12:28 | XMS_ITS | Encounter Summary ---
:1950 Author Organization [place] Address [address] [place] [address] Care Team Providers Name Role Phone Anatoliy Jackson MD Primary Care Provider Heath More MD Unavailable Peter Gipson MD Unavailable Peter Mcmullen MD Unavailable Hallie Maldonado APRN SHIPPING TEAM LEADER Unavailable [phone] Encounter Details Date Type Department Care Team Description 05/02/2021 Travel Social History Tobacco Use Types Packs/Day Years Used Date Former Smoker Cigarettes 2 Quit: 04/19/19 71 Smokeless Tobacco: Never Used Alcohol Use Standard Drinks/Week Comments Yes 0 (1 standard drink = 0.6 oz pure alcoho l) beer and wine , 2 most days Alcohol Habits Answer Date Recorded How often do you have a drink containing Not asked alcohol? How many drinks containing alcohol do you Not asked have on a typical day when you are drinking? How often do you have six or more drinks on Not asked one occasion? Comment: beer and wine , 2 most days 04/19/2021 Sex Assigned at Date Recorded Male 03/12/2021 12:11 PM CDT COVID-19 Exposure Response Date Recorded In the last month, have you been in contact with No / Unsure 05/02/2021 8:11 AM CDT someone who was confirmed or 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 documented as of this encounter Plan of Treatment Upcoming Encounters Date Type Specialty Care Team Description 05/15/2022 Hospital Encounter Surgery Singh Torres MD [facility] [address] [place] [address] (Wo rk) 05/15/2022 Surgery Surgery Neo Torres MD BLEPHAROPLASTY BILATERAL [facility] PTOSIS REPAIR BILATERAL [address] [place] [address] (Wo rk) 06/25/2022 Ancillary Procedure Cardiology Kirk Silver MD [address] [place] [address] (Wo rk) Scheduled Procedures Name Priority Associated [...] on filedocumented in this encounter Care Teams Carrier Driver Relationship Specialty Start Date End Date Anatoliy Jackson PCP - General 05/14/12 Heath Moer PCP - Internal Medicine INTERNAL MEDICINE - 01/06/14 MD Andreas ENDOCRINOLOGY, [facility] [address] [place] [address] Peter Gipson PCP - Urology 04/02/15 MD Jordan [facility] [address] [place] [address] [address] [place] [address] Peter Mcmullen Assigned Musculoskeletal 06/01/20 MD Mahendra Provider [address] [place] [address] Hallie Maldonado, Assigned Heart and 02/22/2105/18 LEHR ATTENDANT SHIPPING TEAM LEADER Vascular Provider [address] [place] [address] documented as of this encounter
--- OUTSIDE RECORDS SUMMARY | 2022-05-02 12:28 | XMS_ITS | Encounter Summary ---
:1950 Author Organization [place] Address [address] [facility] [place] [address] Care Team Providers Name Role Phone Anatoliy Jackson MD Primary Care Provider Heath More MD Unavailable Peter Gipson MD Unavailable Peter Mcmullen MD Unavailable Hallie Maldonado APRN CATTLE DIPPER Unavailable [phone] Reason for Visit Reason Onset Date Comments Hypertension 05/06/2021 Encounter Details Date Type Department Care Team Description 05/06/2021 Telephone [facility] Mouna Hopper RN Hypertension [address] [facility] [place] [address] Social History Tobacco Use Types Packs/Day [...] encounter Miscellaneous Notes Telephone Encounter - Mouna Win RN - 05/06/2021 12:26 PM CDT Patient called with BP and HR readings over weekend. Majority of readings throughout the day were 180 sys or greater prompting him to take 25 mg po Hydralazine. BP does respond but then rebounds withina couple of hours. HR consistently in the 90's. Cardiology follow up changed to 05/07 730. Will update Brenda Willoughby PA-C. documented in this encounter Plan of Treatment Upcoming Encounters Date Type Specialty Care Team Description 05/15/2022 Hospital Encounter Surgery Singh Torres MD [facility] [address] [place] [address] (Wo rk) 05/15/2022 Surgery Surgery Neo Torres MD BLEPHAROPLASTY BILATERAL [facility], INTER[facility] & [facility] PTOSIS REPAIR BILATERAL [address] [place] [address] (Wo rk) 06/25/2022 Ancillary Procedure Cardiology Kirk Silver MD [address] [place] [address] (Wo rk) Scheduled Procedures Name Priority Associated [...] on filedocumented in this encounter Care Teams [employer] Manager Relationship Specialty Start Date End Date Anatoliy Jackson, PCP - General 05/14/12 Heath More PCP - Internal Medicine INTERNAL MEDICINE - 01/06/14 MD Andreas ENDOCRINOLOGY, [facility] [address] [facility] [address] [facility] [address] [place] [id number] Peter Gipson PCP - Urology 04/02/15 MD Jordan [facility] [address] [facility] [address] [place], [place] [id number] Peter Mcmullen Assigned Musculoskeletal 06/01/20 MD Mahendra Provider [address] [facility] [address] [address] [place], [place] [address] Hallie Maldonado, Assigned Heart and 02/22/2105/18 MARINE EQUIPMENT TEST ENGINEER CATTLE DIPPER Vascular Provider [address] [place] [id number] documented as of this encounter
--- OUTSIDE RECORDS SUMMARY | 2022-05-02 12:28 | XMS_ITS | Encounter Summary ---
:1950 Author Organization [place] Address [address] [facility] [place] [address] Care Team Providers Name Role Phone Anatoliy Jackson MD Primary Care Provider Heath More MD Unavailable Peter Gipson MD Unavailable Peter Mcmullen MD Unavailable Hallie Maldonado APRN MONOMER PURIFICATION OPERATOR Unavailable Reason for Visit Reason Onset Date Comments Hypertension 05/02/2021 Encounter Details Date Type Department Care Team Description 05/02/2021 Telephone [facility] Mouna Hopper RN Hypertension [address] [place] [address] Social History Tobacco Use Types Packs/Day [...] Telephone Encounter - Mouna Win RN - 05/02/2021 3:05 PM CDT Patient called with updated blood pressures , BP 118/72 HR 60 at rehab and his PCP appt today. Will update Brenda Willoughby PA-C. documented in this encounter Plan of Treatment Upcoming Encounters Date Type Specialty Care Team Description 05/15/2022 Hospital Encounter Surgery Singh Torres MD [facility] [address] [place] [address] (Wo rk) 05/15/2022 Surgery Surgery Neo Torres MD BLEPHAROPLASTY BILATERAL [facility], [facility] & [facility] [place] PTOSIS REPAIR BILATERAL [address] [place] [address] (Wo rk) 06/25/2022 Ancillary Procedure Cardiology Kirk Silver MD [address] [place] [address] (Wo rk) Scheduled Procedures Name Priority Associated [...] on filedocumented in this encounter Care Teams Oil Well Gun Perforator Operator Relationship Specialty Start Date End Date Anatoliy Jackson, PCP - General 05/14/12 Heath More PCP - Internal Medicine INTERNAL MEDICINE - 01/06/14 MD Andreas ENDOCRINOLOGY, [facility] DIABETES & METABOLISM [facility] [address] [facility] [address] [place] [phone] Peter Gipson PCP - Urology 04/02/15 MD Jordan [facility] [address] [place] [address] Peter Mcmullen Assigned Musculoskeletal 06/01/20 MD Mahendra Provider [facility] [place] [facility] [address] [place], [place] [address] Hallie Maldonado, Assigned Heart and 02/22/2105/18 SHEARING MACHINE TENDER MONOMER PURIFICATION OPERATOR Vascular Provider [address] [place] [address] documented as of this encounter
--- OUTSIDE RECORDS SUMMARY | 2022-05-02 12:28 | XMS_ITS | Encounter Summary ---
:1950 Author Organization [facility] Address [address] [facility] [place] [address] Care Team Providers Name Role Phone Anatoliy Jackson MD Primary Care Provider Heath More MD Unavailable Peter Gipson MD Unavailable Peter Mcmullen MD Unavailable Hallie Maldonado APRN SOLDERER DIPPER Unavailable [phone] Reason for Referral CV Testing (Routine) - Closed Specialty Diagnoses / Procedures Referred By Contact Refer red To Contact Diagnoses Coronary artery disease involving coronary bypass graft of [place] heart without angina pectoris Ailyn Julien APRN Procedures Echocardiogram Limited ZZHC ECHO HEART XTHORACIC,LIMITED ZZHC ECHO TRANSTHORACIC, LIMITED W CONTRAST ZZHC ECHO TRANSTHORACIC, LIMITED W/O CONTRAST ZZHC DOPPLER ECHO COLOR FLOW VELOCITY MAP SOLDERER DIPPER ZZ STATISTIC IV PUSH SINGL E INITIAL SUBSTANCE WY ECHO HEART XTHORACIC,LIMITED WY DOPPLER ECHO COLOR FLOW VELOCITY MAP WY ECHO HEART XTHORACIC,LIMITED WY ECHO HEART XTHORACIC,LIMITED HC ECHO TRANSTHORACIC, LIMITED [address] HC DOPPLER ECHO COLOR FLOW V ELOCITY MAP HC STATISTIC IV PUSH SINGLE INITIAL SUBSTANCE HC ECHO TRANSTHORACIC, LIMITED W CONTRAST HC ECHO TRANSTHORACIC, LIMITED W/O CONTRAST [place] [address] Referral ID Status Reason Start Date Expiration Date Visits Requ ested Visits Authorized [id number] Closed 05/07/2021 05/07/2022 1 1 Specialty Diagnoses / Procedures Referred By Contact Refer red To Contact Ailyn Julien APRN Mannc hen, Kristine A, APRN CNP [employer] DIPPER [address] [place] [address] [place] [address] Fax: Referral ID Status Reason Start Date Expiration Date Visits Requ ested Visits Authorized Reason for Visit Reason Comments Coronary Artery Disease Encounter Details Date Type Department Care Team Description 05/07/2021 Office Visit [facility] Ailyn Julien Coronary artery disease involving coronary bypass graft of [place] heart without angina pectoris (Primary Dx); [facility] CALLIE Hernandez CNP Coronary artery disease involving [place] coronary artery of [place] heart without angina pectoris; [facility] [address] S/P CABG (coronary artery by pass graft) [address] [facility] [address] [place] [address] [place] [phone] (Wo rk) [address] [phone] Social History Tobacco Use Types Packs/Day Years [...] been in contact with No / Unsure 05/07/2021 7:12 AM CDT someone who was confirmed or 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 documented as of this encounter Last Filed Vital Signs Vital Sign Reading Time Taken Comments Blood Pressure 128/66 05/07/2021 7:34 AM CDT Pulse 76 05/07/2021 7:34 AM CDT Temperature - - Respiratory Rate - - Oxygen Saturation - - Inhaled Oxygen - - Concentration Weight 103.1 kg (227 lb 6.4 05/07/2021 7:34 AM 222 lbs home weight oz) CDT Height 180.3 cm (5' 11) 05/07/2021 7:34 AM CDT Body Mass Index 31.72 05/07/2021 7:34 AM CDT documented in this encounter Patient Instructions Patient InstructionsAilyn Julien APRN CNP - 05/07/2021 7:30 AM CDT Call C.O.R.E. nurse for any questions or concerns Mon-Fri 8am-4pm: [phone]: [place] nurse For concerns after hours: [phone] Medication changes: 1. Start furosemide 20mg daily Plan from today: 1. Call Eli about appt 2. holter 3. Return in 1 week to see Fadi Julien HYDRAULIC MINER BLASTING 4. Goal BP 130/ 70-80 5. Daily weight, call if more short of breath. documented in this encounter Progress Notes Ailyn Julien APRN CNP - 05/07/2021 7:30 AM CDT Images from the original note were not included. CARDIOLOGY CLINIC / C.O.R.E. CLINIC VISIT (Heart Failure Specialty) DOS: 05.07.21 Nikita Anderson : 1950 Primary Computer Networking Instructor Adjunct: Dr. Solis Reason for Visit: emergent visit requested, no labs History: Nikita Anderson is a pleasant 70 year old patient who has a past medical history significant for coronary artery disease status post PCI to the ostial/proximal circumflex, mid circumflex, and OM 2 (2014), hypertension, hyperlipidemia, diabetes, chronic kidney disease, anemia, and obesity. ?? He recently underwent a nuclear stress test that showed a medium sized area of moderate ischemia theentire inferior and inferior lateral segment of the LV. He was noted to have a 3.[address] segment depression II, III, aVF, V4, V5 and V6 leads). He subsequently underwent a coronary angiogramthat showed a 75% mid LAD lesion with positive IFR of 0.77. Circumflex stents are widely patent. NewCTO M2. RCA is heavily calcified distally with a 60 to 70% lesion in the PDA. EF is well preserved at 55-60%. On 04/19/21 Mr. Anderson successfully underwent Coronary artery bypass grafting x 3 with left internalmammary artery to the left anterior descending, reverse saphenous vein graft to the posterior descending artery, reverse saphenous vein graft to the obtuse marginal 2 artery, endoscopic vein harvest from the left lower extremity, intraoperative KARIE with normal EF by Dr. Kushal Gardner.Discharged on 04/25/21. Presented to the ED 04/27/21 who presented with weakness and falls. At that time, chest x-ray was done, which was suggestive of possible pneumonia, was started on doxycycline and a few days of Lasix, ginette was having lower extremity edema and was sent home. 04/28/21 presented to the ED again with weakness. He felt nauseous this morning and not feeling well,so he came to the ER. In the ER today, again, he at times had become hypoxic, saturation dropped to 87-89%. Was put on 2 liters was bradycardic and D-dimer was elevated. CT scan of the chest PE protocol. Left pleural effusion status post thoracentesis on 04/29, removed 1 liter of sanguinous output, likely postoperative.Generalized weakness was multifactorial. The patient was on high doses of gabapentin.He is on multiple antihypertensive medications. His creatinine increased to 2.16. His hemoglobin dropped to 7.8. He was given 2 liters of IV fluids, gabapentin was decreased from 1200 mg to 300 mg b.i.d. He was taking 600 mg at 8:30 p.m. and 600 at bedtime. Most likely caused ataxia, wobbly nature or generalized weakness of his legs getting worsening renal failure. Lasix and lisinopril were stopped, antibiotics stopped, no indication of active pna with normal procalcitonin. Gabapentin decreased to 300 mg bid, holter monitor on discharge, however surgery stated it may of not been done. Surgery requested that the patient be seen. 05/07/21 returns to [facility]. Currently on: Current medications: Amlodipine 10mg Clonidine Hydralazine 100mg tid Imdur 30mg daily Crestor Off beta hong due to bradycardia He is here with his . He is trying to take his blood pressure at home. He didn't really know howto use a blood pressure cuff and when he showed me he wasn't clear about the position of the blood pressure cuff and so forth. His blood pressures at home at times are 120/70 and then 170/80. When taken today his blood pressure was the same as the clinic manual blood pressure however when he took it himself it was up 20 mmHg and we discovered it was the position of the cough. He complains of some shortness of breath with exertion and since stopping furosemide his weight went up 5 pounds. He complains of leg edema and arm edema. He denies orthopnea or PND, syncope or near syncope. At times he has chest pressure when lying down. He is weighing himself daily. He no longer has severe weakness after changing the dose of the gabapentin. I have reviewed and updated the patient's Past Medical History, Social History, Family History and Medication List. CURRENT MEDICATIONS: Current Outpatient Medications Medication Sig Dispense Refill ??? acetaminophen (TYLENOL) 325 MG tablet Take 2 tablets (650 mg) by mouth every 4 hours as needed for mild pain 40 tablet 0 ??? amLODIPine (NORVASC) 10 MG tablet Take 1 tablet (10 mg) by mouth daily 30 tablet 3 ??? aspirin (ASA) 81 MG chewable tablet 4 tablets (324 mg) by Oral or NG Tube route daily 30 tablet 0 ??? cloNIDine (CATAPRES) 0.1 MG tablet Take 1 tablet (0.1 mg) by mouth 2 times daily 60 tablet 3 ??? Continuous Blood Gluc Sensor (DEXCOM G6 SENSOR) MISC ??? cyanocobalamin (VITAMIN B-12) 1000 MCG tablet Take 1,000 mcg by mouth daily ??? famotidine (PEPCID) 20 MG tablet Take 1 tablet (20 mg) by mouth 2 times daily for 14 days 28 tablet 0 ??? ferrous sulfate 140 (45 Fe) MG [...] needed (Arthritis on right knee and wrist) ??? hydrALAZINE (APRESOLINE) 25 MG tablet Take 1 tablet (25 mg) by mouth daily as needed (for blood pressure >170 mmHg) 20 tablet 0 ??? hydrALAZINE (APRESOLINE) 50 MG tablet Take 2 tablets (100 mg) by mouth 3 times daily 90 tablet 0 ??? insulin glargine (LANTUS PEN) 100 UNIT/ML pen Inject 55 Units Subcutaneous At Bedtime ??? insulin lispro (HUMALOG) 100 UNIT/ML vial [...] 1 tablet (30 mg) by mouth daily 30 tablet3 ??? melatonin 3 MG CAPS Take 3 mg by mouth At Bedtime ??? ONE TOUCH ULTRA TEST STRP as directed 100 prn ??? polyethylene glycol (MIRALAX) 17 GM/Dose powder Take 17 g by mouth daily 510 g 0 ??? Polyethylene Glycol 400 (BLINK TEARS OP) Place 1 drop into both eyes daily as needed ??? rosuvastatin (CRESTOR) 40 MG tablet Take 1 tablet (40 mg) by mouth every evening 90 tablet 3 ??? senna-docusate (SENOKOT-S/PERICOLACE) 8.6-50 MG tablet Take 1 tablet by mouth 2 times daily as needed for constipation 20 tablet 0 ??? sertraline (ZOLOFT) 50 MG tablet Take [...] as noted above. PHYSICAL EXAMINATION: Vitals: Bp 128/66, HR 76 bpm, 227 pounds Constitutional: Patient is pleasant, alert, cooperative, and in NAD. HEENT: NCAT. PERRLA. EOM's intact. Neck: JVP 6-8 Pulmonary: clear with left mid to base diminished Cardiac: Regular rate and rhythm. Normal S1 and S2. No murmurs Abdomen: Soft, non-tender abdomen, no hepatosplenomegaly appreciated. Extremities: Mild edema Neurological: No gross motor or sensory deficits. Psych: Appropriate affect. DIAGNOSTIC STUDIES: Recent Lab Results: BMP RESULTS: No labs ordered Lab Results Component Value Date CHOL 115 12/21/2020 HDL 31 (L) 12/21/2020 LDL 34 12/21/2020 TRIG 251 (H) 12/21/2020 CHOLHDLRATIO 3.5 04/09/2015 ASSESSMENT /PLAN Mr. Anderson is a pleasant 70-year-old male with a past medical history significant for hypertension,hyperlipidemia, diabetes, chronic kidney disease, coronary artery disease status post PCI, obesity (BMI 32 kg/m??), CABG 04/19/21 who presents for follow-up due to multiple readmissions. 1. History of CABG on 04/19/2021 Pleural effusion status post thoracentesis on 04/29 Removed 1 liter of sanguinous output, likely postoperative -Intraoperative KARIE showed normal EF -Clearly continues to retain fluid post CABG. Restart furosemide possibly for short time - repeat echo Nov. - FLP in Jun. - Continue cardiac rehab - beta hong on hold due to bradycardia - continue aspirin - continue statin 2. Generalized weakness likely a combination of toxic encephalopathy in the setting of acute kidney injury and possible pneumonia. -Improved after gabapentin dose changed 3. CKD III: No blood work ordered for today's appointment have reordered it for 1 week. 4. HTN -Showed him how to use a blood pressure cuff. I asked him to start over on the blood pressure readings given that the blood pressure readings were not accurate. Of asked him to return in 1 week to reassess. I told him the blood pressure goal is 130 systolic. - continue amlodipine - Restart furosemide 20mg daily -Continue hydralazine 100 mg tid - off of BB due to bradycardia obtain Holter monitor today. -Continue clonidine - prn hydralazine 25 mg for blood pressure greater than 170mmhg 5. DM1, insulin dependent. Per PCP 6. Anemia - stable - iron studies normal 7. HLD - on crestor Follow-up: 1. Follow up with Surgery in am 2. Follow up me in 1 week in [facility] 3. Follow up Dr. Solis in Nov. Thank you for the opportunity to be involved in this very pleasant patient's care please feel to contact me with any questions. Total time: 71 minutes was spent today reviewing the chart, visiting the patient, and documenting the visit. Ailyn Julien APRN, CNP [facility] documented in this encounter Miscellaneous Notes Addendum Note - Ailyn Julien APRN CNP - 05/07/2021 7:30 AM CDT Addended by: AILYN JULIEN on: 05/07/2021 08:56 AM Modules accepted: Orders, SmartSet documented in this encounter Plan of Treatment Upcoming Encounters Date Type Specialty Care Team Description 05/15/2022 Hospital Encounter Surgery Singh Torres MD [facility] [address] [place] [id number] (Wo rk) 05/15/2022 Surgery Surgery Neo Torres MD BLEPHAROPLASTY BILATERAL [facility] PTOSIS REPAIR BILATERAL [address] [place] [id number] (Wo rk) 06/25/2022 Ancillary Procedure Cardiology Kirk Silver MD [address] [place] [address] (Wo rk) Scheduled Procedures Name Priority Associated [...] S chedule Follow-Up with Referral Routine: Next Coronary artery Expected: [facility] available opening disease involving 05/14/2021 visit coronary bypass graft (Appro ximate), of [place] heart Expires: without angina 05/07/2022 pectoris Coronary artery disease involving [place] coronary artery of [place] heart without angina pectoris documented as of this encounter Results ALT (06/06/2021 8:02 AM CDT) P athologist Signature ALT 22 0 - 70 U/L 06/06/2021 9:09 [facility] AM CDT Specimen Anatomical Collection Method / Collection Time Recei shyla Time (Source) Location / Volume Laterality Blood STRUCTURE OF RIGHT Venipuncture / 06/06/2021 8:02 05/11 8:04 UPPER LIMB / Unknown AM CDT AM CDT Unknown Ailyn Julien APRN SOLDERER DIPPER LAB - BLOOD ORDERABLES Performing Organization Address City/State/ZIP Code Phon [place] [address] Care Lab [address] Lab (1st floor, no room number) [...] than or equal to 22 0 mg/dL Ailyn Julien APRN SOLDERER DIPPER LAB - BLOOD ORDERABLES Performing Organization Address City/State/ZIP Code [place] [address] Care Lab [address] Lab (1st floor, no room number) (ABNORMAL) Basic metabolic panel (06/06/2021 8:02 AM CDT) Analysis Performed At Patho logist Time Signature Sodium 141 133 - 144 06/06/2021 [facility] mmol/L 9:09 AM CDT Potassium 4.2 3.4 - 5.3 06/06/2021 [facility] mmol/L 9:09 AM CDT Chloride 110 (H) 94 - 109 06/06/2021 [facility] mmol/L 9:09 AM CDT Carbon Dioxide [...] / Unknown AM CDT AM CDT Unknown Ailyn Julien APRN SOLDERER DIPPER LAB - BLOOD ORDERABLES Performing Organization Address City/State/ZIP Code [place] [phone] Care Lab [address] [facility] Lab (1st floor, no room number) ECHO LIMITED (06/06/2021 7:53 AM CDT) P athologist Signature Biplane LVEF 46% CARDIOLOGY RESULTS Anatomical Region Laterality Modality Echocardiography Specimen (Source) Anatomical Collection Method Collection Time Re ceived Time Location / / Volume Laterality 06/06/2021 7:32 AM CDT Narrative 06/06/2021 9:40 AM CDT [id number]^ANAYA^AILYN^[facility] Echocardiography Laboratory [address] [place] [address] Name: NIKITA ANDERSON : 1950 Study Date: 06/06/2021 07:32 AM Age: 70 yrs Gender: Male Patient Location: [facility] Reason For Study: Coronary artery diseas e involving coronary bypass graft Ordering Physician: AILYN JULINE Referring Physician: AILYN JULIEN Performed By: Brooke [...] Procedure Note Darwin Morris MD - 06/06/2021 [id number] [facility] [id number]^ANAYA^AILYN^[facility] Echocardiography Laboratory [address] [place] [address] Name: NIKITA ANDERSON : 1950 Study Date: 06/06/2021 07:32 AM Age: 70 yrs Gender: Male Patient Location: [facility] Reason For Study: Coronary artery diseas e [...] by: Yasir Ho 06/06/2021 09:40 AM Ailyn Julien APRN SOLDERER DIPPER CV ECHO ORDERABLES (ABNORMAL) Basic metabolic panel (05/13/2021 7:45 AM CDT) [facility] gist Method Time Signature Sodium 140 133 - 144 05/13/2021 LABORATORY mmol/L 8:17 AM CDT Potassium 4.3 3.4 - 5.3 05/13/2021 LABORATORY mmol/L 8:17 AM CDT Chloride 110 (H) 94 - 109 05/13/2021 LABORATORY mmol/L 8:17 AM CDT Carbon Dioxide 25 20 - 32 05/13/2021 LABORATORY (CO2) mmol/L 8:17 AM CDT Anion Gap 5 3 - 14 05/13/2021 LABORATORY mmol/L 8:17 AM CDT Urea Nitrogen 29 7 - 30 05/13/2021 LABORATORY mg/dL 8:17 AM CDT Creatinine 1.33 (H) 0.66 - 05/13/2021 LABORATORY 1.25 mg/dL 8:17 AM CDT Calcium 8.5 8.5 - 10.1 05/13/2021 LABORATORY mg/dL 8:17 AM CDT Glucose 199 (H) 70 - 99 05/13/2021 LABORATORY mg/dL 8:17 AM CDT GFR Estimate 53 (L) >60 05/13/2021 LABORATORY mL/min/1.7 8:17 AM CDT 3m2 Comment: As of February [...] Laterality Blood STRUCTURE OF RIGHT Venipuncture / 05/13/2021 7:45 10/11/2020 7:45 UPPER LIMB / Unknown AM CDT AM CDT Unknown Ailyn Julien APRN SOLDERER DIPPER LAB - BLOOD ORDERABLES Performing Organization Address City/State/ZIP Code [place] [address] Care Lab [address] Lab (1st floor, no room number) documented in this encounter Visit Diagnoses Diagnosis Coronary artery disease involving bray ry bypass graft of [place] heart without angina pectoris - Primary Coronary artery disease involving [place] coronary artery of [place] heart without angina pectoris S/P CABG (coronary artery bypass graft) Postsurgical aortocoronary bypass status Coronary artery disease involving bray ry bypass graft of [place] heart without angina pectoris 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 documented in this encounter Care Teams Feather Separator Relationship Specialty Start Date End Date Anatoliy Jackson PCP - General 05/14/12 Heath More PCP - Internal Medicine INTERNAL MEDICINE - 01/06/14 MD Andreas ENDOCRINOLOGY, [facility]INE CLINIC DIABETES & METABOLISM [facility] [address] [place] [phone] Peter Gipson PCP - Urology 04/02/15 MD Jordan [facility] UROLOGY [address] [facility] [address] [place], [place] [id number] Peter Mcmullen Assigned Musculoskeletal 06/01/20 MD Mahendra Provider [address] [place], [place] [address] Hallie Maldonado, Assigned Heart and 02/22/2105/18 [facility] HEL[facility] SOLDERER DIPPER Vascular Provider [address] [place] [address] documented as of this encounter
--- OUTSIDE RECORDS SUMMARY | 2022-05-02 12:28 | XMS_ITS | Encounter Summary ---
:1950 Author Organization [place] Address [address] [facility] [place] [address] Care Team Providers Name Role Phone Anatoliy Jackson MD Primary Care Provider Heath More MD Unavailable Peter Gipson MD Unavailable Peter Mcmullen MD Unavailable Hallie Maldonado APRN [employer]OM[employer]'S BASKET[employer]ALL COACH Unavailable [phone] Encounter Details Date Type Department Care Team Description [facility] Coronary artery disease involving coronary bypass graft of [place] heart without angina pectoris; [facility] Coronary artery disease involving [place] coronary artery of [place] heart without angina pectoris [address] [facility] [address] [place] [address] [phone] Social History Tobacco Use Types Packs/Day Years [...] [address] [place] [address] (Wo rk) 05/15/2022 Surgery Surgery Neo Torres MD BLEPHAROPLASTY BILATERAL [facility] PTOSIS REPAIR BILATERAL [address] [place] [address] (Wo rk) 06/25/2022 Ancillary Procedure Cardiology Kirk Silver MD [address] [place] [address] (Wo rk) Scheduled Procedures Name Priority Associated [...] Associated Diagnosis Comme nts BASIC METABOLIC Routine 05/13/2021 7:45 AM Coronary artery Res ults for this PANEL CDT disease involving procedure are in coronary bypass the results graft of [place] section. heart without angina pectoris Coronary artery disease involving [place] coronary artery of [place] heart without angina pectoris documented in this encounter Results (ABNORMAL) Basic metabolic panel (05/13/2021 7:45 AM CDT) [facility] gist Method Time Signature Sodium 140 133 [...] STRUCTURE OF RIGHT Venipuncture / 05/13/2021 7:45 10/0 11/2020 7:45 UPPER LIMB / Unknown AM CDT AM CDT Unknown Giuliana Gomez APRN [employer]ASKET[employer] LAB - BLOOD ORDERABLES Performing Organization Address City/State/ZIP Code Phon e [place] [phone] Care Lab [address] Lab (1st floor, no room number) documented in this encounter Visit Diagnoses Diagnosis Coronary artery disease involving bray ry bypass graft of [place] heart without angina pectoris Coronary artery disease involving [place] coronary artery of [place] heart without angina pectoris 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 documented in this encounter Care Teams Orthotic And Prosthetic Technician Relationship Specialty Start Date End Date Anatoliy Jackson, PCP - General 05/14/12 Heath More PCP - Internal Medicine INTERNAL MEDICINE - 01/06/14 MD Andreas ENDOCRINOLOGY, ENDOCRINE CLINIC DIABETES & METABOLISM [facility] [address] [facility] [address] [place] [phone] Peter Gipson PCP - Urology 04/02/15 MD Jordan [facility] [address] [place] [address] [address] [place] [address] Peter Mcmullen Assigned Musculoskeletal 06/01/20 MD Mahendra Provider [facility] [place] [id number] [place], [place] [address] Hallie Maldonado, Assigned Heart and 02/22/2105/18 [employer]PECT[employer] DRILLER HELPER WOMEN'S BASKET[employer]ALL COACH Vascular Provider [address] [place] [id number] documented as of this encounter
--- OUTSIDE RECORDS SUMMARY | 2022-05-02 12:28 | XMS_ITS | Encounter Summary ---
:1950 Author Organization [place] Address [address] [facility] [place] [address] Care Team Providers Name Role Phone Anatoliy Jackson MD Primary Care Provider Heath More MD Unavailable Peter Gipson MD Unavailable Peter Mcmullen MD Unavailable Hallie Maldonado APRN SALES CLERK FOOD Unavailable [phone] Encounter Details Date Type Department Care Team Description 05/08/2021 Travel Social History Tobacco Use Types Packs/Day [...] been in contact with No / Unsure 05/08/2021 2:27 PM CDT someone who was confirmed or 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 documented as of this encounter Plan of Treatment Upcoming Encounters Date Type Specialty Care Team Description 05/15/2022 Hospital Encounter Surgery Singh Torres MD [facility] [address] [place] [address] (Wo rk) 05/15/2022 Surgery Surgery Neo Torres MD BLEPHAROPLASTY BILATERAL [facility] PTOSIS REPAIR BILATERAL [address] [place] [address] (Wo rk) 06/25/2022 Ancillary Procedure Cardiology Kirk Silver MD [address] [place] [id number] (Wo rk) Scheduled Procedures Name Priority Associated [...] on filedocumented in this encounter Care Teams Miniature Set Builder Relationship Specialty Start Date End Date Anatoliy Jackson, PCP - General 05/14/12 Heath More PCP - Internal Medicine INTERNAL MEDICINE - 01/06/14 MD Andreas ENDOCRINOLOGY, [facility] DIABETES & METABOLISM OF [facility] [address] [place] [address] Peter Gipson PCP - Urology 04/02/15 MD Jordan [facility] [address] [place] [address] Peter Mcmullen Assigned Musculoskeletal 06/01/20 MD Mahendra Provider [address] [place], [place] [address] Hallie Maldonado, Assigned Heart and 02/22/2105/18 POLLUTION CONTROL CHEMIST SALES CLERK FOOD Vascular Provider [address] [id number] documented as of this encounter
--- OUTSIDE RECORDS SUMMARY | 2022-05-02 12:28 | XMS_ITS | Encounter Summary ---
:1950 Author Organization [place] Address [address] [facility] [place] [address] Care Team Providers Name Role Phone Anatoliy Jackson MD Primary Care Provider Heath More MD Unavailable Peter Gipson MD Unavailable Peter Mcmullen MD Unavailable Hallie Maldonado APRN PRODUCE DEPARTMENT MANAGER Unavailable [phone] Encounter Details Date Type Department Care Team Description 05/07/2021 Travel Social History Tobacco Use Types Packs/Day [...] in contact with No / Unsure 05/07/2021 4:26 PM CDT someone who was confirmed or 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 documented as of this encounter Plan of Treatment Upcoming Encounters Date Type Specialty Care Team Description 05/15/2022 Hospital Encounter Surgery Singh Torres MD [facility] [address] [place] [address] (Wo rk) 05/15/2022 Surgery Surgery Neo Torres MD BLEPHAROPLASTY BILATERAL [facility] & [facility] PTOSIS REPAIR BILATERAL [address] [place] [address] (Wo rk) 06/25/2022 Ancillary Procedure Cardiology Kirk Silver MD [address] [place] [id number] (Wo rk) Scheduled Procedures Name Priority Associated [...] on filedocumented in this encounter Care Teams Optical Lens Manufacturing Tech Relationship Specialty Start Date End Date Anatoliy Jackson, PCP - General 05/14/12 Heath More PCP - Internal Medicine INTERNAL MEDICINE - 01/06/14 MD Andreas ENDOCRINOLOGY, ENDOCRINE CLINIC DIABETES & METABOLISM OF [facility] [address] [place] [address] Peter Gipson PCP - Urology 04/02/15 MD Jordan [facility] [address] [place] [address] Peter Mcmullen Assigned Musculoskeletal 06/01/20 MD Mahendra Provider [address] [place], [place] [address] Hallie Maldonado, Assigned Heart and 02/22/2105/18 FUR MACHINE OPERATOR PRODUCE DEPARTMENT MANAGER Vascular Provider [address] [id number] documented as of this encounter
--- OUTSIDE RECORDS SUMMARY | 2022-05-02 12:28 | XMS_ITS | Encounter Summary ---
:1950 Author Organization [place] Address [address] [facility] [place] [address] Care Team Providers Name Role Phone Anatoliy Jackson MD Primary Care Provider Heath More MD Unavailable Peter Gipson MD Unavailable Peter Mcmullen MD Unavailable Hallie Maldonado APRN GREASE REFINING SUPERVISOR Unavailable [phone] Reason for Referral Specialty Diagnoses / Procedures Referred By Contact Refer red To Contact Giuliana Gomez APRN CNP [address] [place] [address] Referral ID Status Reason Start Date Expiration Date Visits Requ ested Visits Authorized Reason for Visit Reason Comments [facility] PE, CAD Results BMP Encounter Details Date Type Department Care Team Description 05/13/2021 Office Visit Giuliana Voss Coronary artery disease involving coronary bypass graft of [place] heart without angina pectoris; [facility] CALLIE Hernandez CNP Coronary artery disease involving [place] coronary artery of [place] heart without angina pectoris [facility] [address] [place] [address] [place], [place] [phone] (Wo rk) [address] [phone] Social History Tobacco Use Types Packs/Day Years [...] Sign Reading Time Taken Comments Blood Pressure 138/56 05/13/2021 8:46 AM meds at 6:30A M CDT Pulse 72 05/13/2021 8:46 AM CDT Temperature - - Respiratory Rate - - Oxygen Saturation 96% 05/13/2021 8:46 AM CDT Inhaled Oxygen Concentration - - Weight 100.4 kg (221 lb 6.4 05/13/2021 8:46 AM 216# CATHRYN E WT oz) CDT Height 180.3 cm (5' 11) 05/13/2021 8:46 AM CDT Body Mass Index 30.88 05/13/2021 8:46 AM CDT documented in this encounter Patient Instructions Patient InstructionsLucretia Trent CMA - 05/13/2021 8:40 AM CDT Call [facility] nurse for any questions or concerns Mon-Fri 8am-4pm: #[phone] For concerns after hours: #[phone] Medication changes: 1. Stop furosemide Plan from today: 1. Echocardiogram and see Dr. Solis in Jun. 2. Cardiac rehab. 3. Call if you develop sweling or shortness of breath. 4. Call BP > 140 systolic. Lab results: see attached: Component Latest Ref Rng & Units 04/30/2021 05/13/2021 Sodium 133 - 144 mmol/L 144 140 Potassium 3.4 - 5.3 mmol/L 4.6 4.3 Chloride 94 - 109 mmol/L 115 (H) 110 (H) Carbon Dioxide 20 - 32 mmol/L 24 25 Anion Gap 3 - 14 mmol/L 5 5 Urea Nitrogen 7 - 30 mg/dL 32 (H) 29 Creatinine 0.66 - 1.25 mg/dL 1.28 (H) 1.33 (H) Calcium 8.5 - 10.1 mg/dL 8.2 (L) 8.5 Glucose 70 - 99 mg/dL 99 199 (H) GFR Estimate >60 mL/min/1.73m2 56 (L) 53 (L) documented in this encounter Progress Notes Giuliana Gomez APRN CNP - 05/13/2021 8:40 AM CDT Images from the original note were not included. CARDIOLOGY CLINIC / C.O.R.E. CLINIC VISIT (Heart Failure Specialty) DOS: 05.13.21 Nikita Anderson : 1950 Primary Elevator Operator Service: Dr. Solis ?? Reason for Visit: recent core enrollment ?? History: Nikita Anderson is a pleasant 70 year old patient who has a past medical history significant for coronary artery disease status post PCI to the ostial/proximal circumflex, mid circumflex, and OM 2 (2014), hypertension, hyperlipidemia, diabetes, chronic kidney disease, anemia, and obesity. ?? He recently??underwent a nuclear stress test that showed a medium sized area of moderate ischemia the entire inferior and inferior lateral segment of the LV. ??He was noted to have a 3.[address] segment depression II, III, aVF, V4, V5 and V6 leads). ?He subsequently underwent a coronary angiogram that showed??a 75% mid LAD lesion with positive IFR of 0.77. ??Circumflex stents are widely patent. ??New [employer] M2. ??RCA is heavily calcified distally with a 60 to 70% lesion in the PDA. ??EF is well preserved at 55-60%. On??04/19/21??Mr. Anderson??successfully underwent Coronary artery bypass grafting x 3 with left internal mammary artery to the left anterior descending, reverse saphenous vein graft to the posterior descending artery, reverse saphenous vein graft to the obtuse marginal 2 artery, endoscopic vein harvestfrom the left lower extremity, intraoperative KARIE??with normal EF by Dr. Kushal Gardner.Discharged on 04/25/21. ?? Presented to the ED 04/27/21 who presented with??weakness and falls. At that time, chest x-ray was done, which was suggestive of possible pneumonia, was started on doxycycline and a few days of Lasix, as he was having lower extremity edema and was sent home. ?? 04/28/21 presented to the ED again with weakness. He felt nauseous this morning and not feeling well,so he came to the ER. ??In the ER today, again, he at times had become hypoxic, saturation dropped to 87-89%. ??Was put on 2 liters was bradycardic and D-dimer was elevated. ??CT scan of the chest PE protocol. Left pleural effusion status post thoracentesis on 04/29, removed 1 liter of sanguinous output, likely postoperative.Generalized weakness was multifactorial. ??The patient was on high??doses of gabapentin. ??He is on multiple antihypertensive medications. ??His creatinine increased to 2.16. ??His hemogl obin dropped to 7.8. ??He was given 2 liters of IV fluids, gabapentin was decreased from 1200 mg to 300 mg b.i.d. ??He was taking 600 mg at 8:30 p.m. and 600 at bedtime. ??Most likely caused ataxia, wobbly nature or generalized weakness of his legs getting worsening renal failure. Lasix and lisinoprilwere stopped, antibiotics stopped, no indication of active pna with normal procalcitonin. Gabapentindecreased to 300 mg bid. ?? 05/07/21 Enrolled in [facility]. Added lasix Current medications: Amlodipine 10mg Clonidine Hydralazine 100mg tid Imdur 30mg daily Crestor Off beta hong due to bradycardia Lasix 20mg daily. ?? 05/13/21 Returns to [facility]. 05/07: 222 lbs 05/08: 220 lbs 05/09: 220 lbs 05/10: 214 lbs 05/13/21 returns to [facility]. His blood pressures have been in the mid 130 systolic. His weight isdown since starting furosemide. He is able to walk now 1 mile or more per day. He denies chest pain chest pressure neck or arm pain. Does complain of occasional subdural number soreness. He denies shortness of breath, PND, orthopnea. I have reviewed and updated the patient's [...] by mouth daily 30 tablet 1 ??? furosemide (LASIX) 20 MG tablet Take 1 tablet (20 mg) by mouth daily 90 tablet 0 ??? gabapentin (NEURONTIN) 300 MG capsule Take [...] powder Take 17 g by mouth daily (Patient not taking: Reported on 05/08/2021) 510 g 0 ??? Polyethylene Glycol 400 (BLINK TEARS OP) Place 1 drop into both eyes daily as needed ??? rosuvastatin (CRESTOR) 40 MG tablet Take 1 tablet (40 mg) by mouth every evening 90 tablet 3 ??? senna-docusate (SENOKOT-S/PERICOLACE) 8.6-50 MG tablet Take 1 tablet by mouth 2 times daily as needed for constipation (Patient not taking: Reported on 05/08/2021) 20 tablet 0 ??? sertraline (ZOLOFT) 50 [...] noted above. PHYSICAL EXAMINATION: Vitals: Blood pressure 138/56, pulse is 72, weight is 221 pounds Constitutional: Patient is pleasant, alert, cooperative, and in NAD. HEENT: NCAT. PERRLA. EOM's intact. Neck: JVP not elevated Pulmonary: clear with left mid to base diminished Cardiac: Regular rate and rhythm. Normal S1 and S2. ??No murmurs Abdomen: Soft, non-tender abdomen, no hepatosplenomegaly appreciated. Extremities: No edema Neurological: No gross motor or sensory deficits. Psych: Appropriate affect. DIAGNOSTIC STUDIES: Recent Lab Results: BMP RESULTS:Results for NIKITA ANDERSON ( ) as of 05/13/2021 10:48 Ref. Range 05/13/2021 07:45 Sodium Latest Ref Range: 133 - 144 mmol/L 140 Potassium Latest Ref Range: 3.4 - 5.3 mmol/L 4.3 Chloride Latest Ref Range: 94 - 109 mmol/L 110 (H) Carbon Dioxide Latest Ref Range: 20 - 32 mmol/L 25 Urea Nitrogen Latest Ref Range: 7 - 30 mg/dL 29 Creatinine Latest Ref Range: 0.66 - 1.25 mg/dL 1.33 (H) GFR Estimate Latest Ref Range: >60 mL/min/1.73m2 53 (L) Calcium Latest Ref Range: 8.5 - 10.1 mg/dL 8.5 Anion Gap Latest Ref Range: 3 - 14 mmol/L 5 Glucose Latest Ref Range: 70 - 99 mg/dL 199 (H) Lab Results Component Value Date CHOL [...] presents for follow-up due to multiple readmissions. ? 1. History of ??CABG on 04/19/2021 Pleural effusion status post thoracentesis on 04/29 -Intraoperative KARIE showed normal EF - continued to retain fluid post CABG, I restarted furosemide and today he is euvolemic. I have stopped furosemide today and asked him to call if he gains more than 2 pounds in a day or 5 pounds in a week or become short of breath. - repeat echo Jun. - FLP in Jun. - Start cardiac rehab - beta hong on hold due to bradycardia - continue aspirin - continue statin - Surgery set up a thoracentesis for 05/14 ?? 2. Generalized weakness -Improved after gabapentin dose changed 3. CKD III: 1.33 . ?? 4. HTN - continue amlodipine - Continue hydralazine 100 mg tid - off of BB due to bradycardia 5. Holter monitor -showed normal sinus rhythm with 2 pulse bouts of atrial fibrillation. Average heart rate was 80 bpm. There were no pauses. Holter was ordered by surgery. I will have them look at it and I also sent toDr. Solis for his recommendations. Patient is not on anticoagulation at this time. - Continue clonidine - prn hydralazine 25 mg for blood pressure greater than 170mmhg ?? 5. DM1, insulin dependent.?? Per PCP ?? 6. Anemia - stable - iron studies normal ?? 7. HLD - on crestor ?? Follow-up: 1. Follow up Dr. Solis in with echocardiogram, bmp and fasting lipid profile. 2. Follow up with me in 2021 Thank you for the opportunity to be involved in this very pleasant patient's care please feel to contact me with any questions. Total time: 37 minutes was spent today reviewing the chart, visiting the patient, and documenting the visit. Giuliana Gomez APRN, CNP [facility] documented in this encounter Plan of Treatment Upcoming Encounters Date Type Specialty Care Team Description 05/15/2022 Hospital Encounter Surgery Singh Torres MD [facility] [address] [place] [id number] (Rosalva ferreira) 05/15/2022 Surgery Surgery Neo Torres MD BLEPHAROPLASTY BILATERAL [facility], INTERNAL & [facility] PTOSIS REPAIR BILATERAL [address] [place] [id number] (Rosalva rk) 06/25/2022 Ancillary Procedure Cardiology Kirk Silver MD [address] [place] [id number] (Rosalva ferreira) Scheduled Procedures Name Priority Associated Diagnoses Date/Time REPAIR, PTOSIS, BILATERAL, Dermatochalas is 05/15/2022 7:30 AM CDT WITH BILATERAL BLEPHAROPLASTY 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 REPAIR, ECTROPION, EYE, Dermatochalasis 05/15/2022 7:30 AM CDT BILATERAL 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 Scheduled Referrals Name Type Priority Associated Diagnoses Order [facility] Referral Routine: Next Coronary artery Expected: available opening disease involving 09/10, Expires: coronary bypass graft 2021 of [place] heart without angina pectoris Coronary artery disease involving [place] coronary artery of [place] heart without angina pectoris documented as of this encounter Results (ABNORMAL) Basic metabolic panel (09/10/2021 1:52 PM ENTERPRISE APPLICATIONS MANAGER) [facility] Method Time Signature Sodium 142 133 - 144 09/10/2021 LABORATORY mmol/L 2:14 PM ENTERPRISE APPLICATIONS MANAGER Potassium 5.1 3.4 - 5.3 09/10/2021 LABORATORY mmol/L 2:14 PM ENTERPRISE APPLICATIONS MANAGER Chloride 114 (H) 94 - 109 09/10/2021 LABORATORY mmol/L 2:14 PM ENTERPRISE APPLICATIONS MANAGER Carbon Dioxide 26 20 - 32 09/10/2021 LABORATORY (CO2) mmol/L 2:14 PM ENTERPRISE APPLICATIONS MANAGER Anion Gap 2 (L) 3 - 14 09/10/2021 LABORATORY mmol/L 2:14 PM ENTERPRISE APPLICATIONS MANAGER Urea Nitrogen 49 (H) 7 - 30 09/10/2021 LABORATORY mg/dL 2:14 PM ENTERPRISE APPLICATIONS MANAGER Creatinine 1.27 (H) 0.66 - 09/10/2021 LABORATORY 1.25 mg/dL 2:14 PM ENTERPRISE APPLICATIONS MANAGER Calcium 8.9 8.5 - 10.1 09/10/2021 LABORATORY mg/dL 2:14 PM ENTERPRISE APPLICATIONS MANAGER Glucose 85 70 - 99 09/10/2021 LABORATORY mg/dL 2:14 PM ENTERPRISE APPLICATIONS MANAGER GFR Estimate 60 (L) >60 09/10/2021 LABORATORY mL/min/1.7 2:14 PM ENTERPRISE APPLICATIONS MANAGER 3m2 Comment: Effective July 30, 2021 eGF Rcr in adults is calculated using the 2020 CKD-EPI creatinine equation which includ es age and gender (Prateek et al., NEJ, DOI: 10.1056/FMGBgy4556171) Specimen Anatomical Collection Method / Collection Time Recei shyla Time (Source) Location / Volume Laterality Blood STRUCTURE OF RIGHT Venipuncture / 09/10/2021 1:52 02/0 08/2021 1:52 UPPER LIMB / Unknown PM ENTERPRISE APPLICATIONS MANAGER PM ENTERPRISE APPLICATIONS MANAGER Unknown Giuliana Gomez THERMOSTATIC CONTROLS SUPERVISOR GREASE REFINING SUPERVISOR LAB - BLOOD ORDERABLES Performing Organization Address City/State/ZIP Code Phon [place] [address] Care [address] Lab (1st floor, no room number) documented in this encounter Visit Diagnoses Diagnosis Coronary artery disease involving bray ry bypass graft of [place] heart without angina pectoris Coronary artery disease involving [place] coronary artery of [place] heart without angina pectoris 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 documented in this encounter Care Teams Paediatric Thoracic Physician Relationship Specialty Start Date End Date Anatoliy Jackson, PCP - General 05/14/12 Heath More PCP - Internal Medicine INTERNAL MEDICINE - 01/06/14 MD Andreas ENDOCRINOLOGY, ENDOCRINE CLINIC DIABETES & METABOLISM OF [facility] [address] [facility] [address] [place] [address] Peter Gipson PCP - Urology 04/02/15 MD Jordan [facility] [address] [facility] [address] [place] [address] Peter Mcmullen Assigned Musculoskeletal 06/01/20 MD Mahendra Provider [address] [place], [place] [address] Hallie Maldonado, Assigned Heart and 02/22/2105/18 THERMOSTATIC CONTROLS SUPERVISOR GREASE REFINING SUPERVISOR Vascular Provider [address] [place] [id number] documented as of this encounter
--- OUTSIDE RECORDS SUMMARY | 2022-05-02 12:28 | XMS_ITS | Encounter Summary ---
:1950 Author Organization [place] Address [address] [facility] [place] [address] Care Team Providers Name Role Phone Anatoliy Jackson MD Primary Care Provider Heath More MD Unavailable Peter Gipson MD Unavailable Peter Mcmullen MD Unavailable Hallie Maldonado VOICER MANAGED CARE SPECIALIST Unavailable [phone] Giuliana Gomez VOICER MANAGED CARE SPECIALIST Unavailable [phone] Fidencio Solis MD Unavailable Giuliana Gomez APRN MANAGED CARE SPECIALIST Unavailable [phone] Giuliana Gomez APRN MANAGED CARE SPECIALIST Unavailable Fidencio Solis MD Unavailable Encounter Details Date Type Department Care Team Description 05/02/2021 Orders Only [facility] Anatoliy Jackson MD Coordination [id number] [facility] [address] [place] [address] [place] [address] Social History Tobacco Use Types [...] [address] [place] [address] (Wo rk) 05/15/2022 Surgery Surgery Neo Torres MD BLEPHAROPLASTY BILATERAL [facility], INTERNAL & SURGEONS PA PTOSIS REPAIR BILATERAL [address] [place] [address] (Wo rk) 06/25/2022 Ancillary Procedure Cardiology Kirk Silver MD [address] [place] [address] (Wo rk) Scheduled Procedures Name Priority Associated [...] on filedocumented in this encounter Care Teams Operations Manager Relationship Specialty Start Date End Date Anatoliy Jackson, PCP - General 05/14/12 Heath More PCP - Internal Medicine INTERNAL MEDICINE - 01/06/14 MD Andreas ENDOCRINOLOGY, DIABETES ENDOCRINE CLINIC & METABOLISM OF [facility] [address] [place] [phone] Peter Gipson PCP - Urology 04/02/15 MD Jordan [facility] [address] [facility] [address] [place] [address] Peter Mcmullen Assigned Musculoskeletal 06/01/20 MD Mahendra Provider [facility] [place], [place] [address] [place], [place] [address] Hallie Maldonado, Assigned Heart and 02/22/2105/18 VOICER MANAGED CARE SPECIALIST Vascular Provider [address] [place] [address] Giuliana Gomez Assigned Heart and 05/19/2106/15/21 A, VOICER MANAGED CARE SPECIALIST Vascular Provider [address] [place] [address] Fidencio Solis MD Assigned Heart and 06/16/21 06/29/[address], Vascular Provider [facility] [address] [place] [address] Giuliana Gomez Assigned Heart and 06/30/21 A, VOICER MANAGED CARE SPECIALIST Vascular Provider [address] [place], [place] [address] Giuliana Gomez Nurse Practitioner Cardiovascular Disease 2 A, VOICER MANAGED CARE SPECIALIST [address] [place] [address] Fidencio Solis MD MD Cardiovascular Disease 08/21/21 [address] [place] [id number] documented as of this encounter
--- OUTSIDE RECORDS SUMMARY | 2022-05-02 12:28 | XMS_ITS | Encounter Summary ---
:1950 Author Organization [place] Address [address] [place] [address] Care Team Providers Name Role Phone Anatoliy Jackson MD Primary Care Provider Heath More MD Unavailable Peter Gipson MD Unavailable Peter Mcmullen MD Unavailable Hallie Maldonado APRN LOCK PLATER Unavailable [phone] Encounter Details Date Type Department Care Team Description [facility]/09[facility] [address] [facility] [address] [place] [address] Social History Tobacco Use [...] encounter Miscellaneous Notes Telephone Encounter - Laureen Emerson, RN - 05/09/2021 3:56 PM CDT Call received form the of dental school regarding The pt. Pt arrived today and started undergoing a prophylactic cleaning,. The staff / student were not made aware of his open heart surgery until after they had already initiated gum manipulation. The student and staff then called to report they had initiated this and were calling to ensure that they did not need to start any form of intervention at this time as their protocol states to delay any cleanings until 6 months post surgical intervention. No prophylaxis need per cardiology. Call placed to CV surgery to verify that no contraindication to having dental intervention. Spoke with Eli Prieto to review - no intervention / ABX needed appreciate assistance. Pt updated that he will not need any ABX at this time. Wayne Emerson RN, BSN. 05/09/21 4:03 PM documented in this encounter Plan of Treatment Upcoming Encounters Date Type Specialty Care Team Description 05/15/2022 Hospital Encounter Surgery Singh Torres MD [facility] [address] [place] [id number] (Rosalva ferreira) 05/15/2022 Surgery Surgery Neo Torres MD BLEPHAROPLASTY BILATERAL [place] [facility], INTERNAL & [facility] PTOSIS REPAIR BILATERAL [address] [place] [id number] (Rosalva ferreira) 06/25/2022 Ancillary Procedure Cardiology Kirk Silver MD [address] [place] [address] (Rosalva ferreira) Scheduled Procedures Name Priority Associated [...] on filedocumented in this encounter Care Teams Acoustical Carpenter Relationship Specialty Start Date End Date Anatoliy Jackson, PCP - General 05/14/12 Heath More PCP - Internal Medicine INTERNAL MEDICINE - 01/06/14 MD Andreas ENDOCRINOLOGY, [facility] DIABETES & METABOLISM [facility] [address] [facility] [address] [place] [phone] Peter Gipson PCP - Urology 04/02/15 MD Jordan [facility] [address] [place] [address] Peter Mcmullen Assigned Musculoskeletal 06/01/20 MD Mahendra Provider [address] [place], [place] [id number] [place], [place] [address] Hallie Maldonado, Assigned Heart and 02/22/2105/18 CONTRACT TECHNICAL WRITER LOCK PLATER Vascular Provider [address] [place] [address] documented as of this encounter
--- OUTSIDE RECORDS SUMMARY | 2022-05-02 12:28 | XMS_ITS | Encounter Summary ---
:1950 Author Organization [place] Address [address] [facility] [address] Care Team Providers Name Role Phone Anatoliy Jackson MD Primary Care Provider Heath More MD Unavailable Peter Gipson MD Unavailable Peter Mcmullen MD Unavailable Hallie Maldonado APRN TIRE CLASSIFIER Unavailable [phone] Reason for Referral CV Testing (Routine) - Closed Specialty Diagnoses / Procedures Referred By Contact Refer red To Contact Diagnoses Coronary artery disease involving shoalwater coronary artery of shoalwater heart without angina pectoris Coronary artery disease involving coronary bypass graft of shoalwater heart without angina pectoris Giuliana Gomez APRN Procedures Cardiac Event Monitor Adult Pediatric TIRE CLASSIFIER [address] [facility] [address] [place] [address] Referral ID Status Reason Start Date Expiration Date Visits Requ ested Visits Authorized [id number] Closed 05/13/2021 05/13/2022 1 1 Reason for Visit Reason Comments Clinic Care Coordination - Follow-up 30 day event tae tor needed Encounter Details Date Type Department Care Team Description 05/13/2021 Documentation Only [facility], located [facility] Anu Hernandez APRN Remzugzgdbso - [address] [facility] Follow-up (30 d... [facility] [address] [phone] [place] [address] [phone] Social History Tobacco Use Types Packs/Day Years [...] Notes Giuliana Gomez APRN CNP - 05/13/2021 9:[address] Solis, Holter was ordered by surgery post CABG. The principle rhythm was sinus with 2 short bouts of atrial fibrillation. Could you please look at it? Thanks Giuliana Gomez APRN, CNP Giuliana Gomez APRN CNP - 05/13/2021 9:35 AM CDT Please call the patient and review Dr. Solis's recommendations. Please have a 30 day event monitor done. Thanks Giuliana Gomez APRN, CNP Elizabeth Fernandez RN - 05/13/2021 9:35 AM CDT Orders placed under Dr. Solis. Messaged scheduling requesting they contact pt to get set up. Called pt to discuss Dr. Solis's recommendations. VM left requesting call back. Future Appointments Date Time Provider Department Center 05/14/2021 1:30 PM [facility] 05/14/2021 2:45 PM 2, Rh Cardiac Rehab [facility] 05/16/2021 1:00 PM 1, [facility] 05/21/2021 4:30 PM 2, Rh Cardiac Rehab [...] RID 06/12/2021 8:45 AM Fidencio Solis MD [facility] 06/14/2021 10:00 AM 1, Rh Cardiac [facility]hab [facility] 06/17/2021 10:00 AM 1, [facility] Elizabeth Fernandez RN BSN [facility] Heart [place], [place] [facility] Clinic Graphics Artist 05/13/21, 3:35 PM Elizabeth Fernandez RN - 05/13/2021 9:35 AM CDT Called Nikita and he reports he has questions about the monitor. Reviewed in detail further what that entails and what further information can be obtained in a 30 day monitor which would direct us on if he needs to be and if its safe for him to start a blood thinner if needed. When he was asked about night sweats at one of his OV's he reported no, but a couple days ago he did wake up with a damp t-shirt when sleeping with just a sheet on. He will call scheduling to arrange the 30 day event monitor appt. Future Appointments Date Time Provider Department Center 05/14/2021 1:30 PM [facility]1 [facility] 05/14/2021 2:45 PM 2, Rh Cardiac Rehab [facility] 05/16/2021 1:00 PM 1, [facility] 05/21/2021 4:30 PM 2, Rh Cardiac Rehab [...] RID 06/12/2021 8:45 AM Fidencio Solis MD [facility] 06/14/2021 10:00 AM 1, Rh Card[facility] 06/17/2021 10:00 AM 1, [facility] Elizabeth Fernandez RN [facility] [place] [facility] Clinic Graphics Artist 05/14/21, 12:21 PM Elizabeth Fernandez RN - 05/13/2021 9:35 AM CDT Pt appt set up for 30 day event monitor on 05/17/21. Elizabeth Fernandez RN [place], [place] [facility] Clinic Graphics Artist 05/14/21, 2:32 PM documented in this encounter Plan of Treatment Upcoming Encounters Date Type Specialty Care Team Description 05/15/2022 Hospital Encounter Surgery Singh Torres MD [facility] [address] [place] [address] (Wo rk) 05/15/2022 Surgery Surgery Neo Torres MD BLEPHAROPLASTY BILATERAL [place] [facility], INTERNAL & [facility] PTOSIS REPAIR BILATERAL [address] [place] [address] (Wo rk) 06/25/2022 Ancillary Procedure Cardiology Kirk Silver MD [address] [place] [id number] (Wo rk) Scheduled Procedures Name Priority Associated Diagnoses Date/Time REPAIR, PTOSIS, BILATERAL, Dermatochalas is 05/15/2022 7:30 AM CDT WITH BILATERAL BLEPHAROPLASTY 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 REPAIR, ECTROPION, EYE, Dermatochalasis 05/15/2022 7:30 AM CDT BILATERAL 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 documented as of this encounter Results CARDIAC EVENT MONITOR APPLICATION [...] Visit Diagnoses Diagnosis Coronary artery disease involving shoalwater coronary artery of sho[place] heart without angina pectoris - Primary Coronary artery disease involving bray ry bypass graft of sho[place] heart without angina pectoris 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 documented in this encounter Care Teams Artificial Snow Making Machine Operator Relationship Specialty Start Date End Date Anatoliy Jackson, PCP - General 05/14/12 Heath More PCP - Internal Medicine INTERNAL MEDICINE - 01/06/14 MD Andreas ENDOCRINOLOGY, ENDOCRINE CLINIC DIABETES & METABOLISM [facility] [address] [facility] [address] [place] [phone] Peter Gipson PCP - Urology 04/02/15 MD Jordan [facility] [address] [place] [address] [address] [place], [place] [id number] Peter Mcmullen Assigned Musculoskeletal 06/01/20 MD Mahendra Provider [facility] [address] [place], [place] [address] Hallie Maldonado, Assigned Heart and 02/22/2105/18 DIRECTOR SUPPLY TIRE CLASSIFIER Vascular Provider [address] [place] [place] [address] documented as of this encounter
--- OUTSIDE RECORDS SUMMARY | 2022-05-02 12:28 | XMS_ITS | Encounter Summary ---
:1950 Author Organization [place] Address [address] [facility] [place] [address] Care Team Providers Name Role Phone Anatoliy Jackson MD Primary Care Provider Heath More MD Unavailable Peter Gipson MD Unavailable Peter Mcmullen MD Unavailable Hallie Maldonado APRN ULTRASOUND TECHNOLOGIST Unavailable [phone] Encounter Details Date Type Department Care Team Description 05/11/2021 Lab [facility] for screening for Hospital other viral diseases [address] [place] [address] Social History Tobacco Use [...] [address] [place] [address] (Wo rk) 05/15/2022 Surgery Surgery Neo Torres MD BLEPHAROPLASTY BILATERAL [place] [facility], INTERNAL & SURGEONS PA PTOSIS REPAIR BILATERAL [address] [place] [address] (Wo rk) 06/25/2022 Ancillary Procedure Cardiology Kirk Silver MD [address] [place] [address] (Wo rk) Scheduled Procedures Name Priority Associated [...] Associated Diagnosis Comme nts COVID-19 VIRUS Routine 05/11/2021 10:42 AM Encounter for Resul ts for this (CORONAVIRUS) BY CDT screening for other proc edure are in PCR viral diseases the results section. documented in this encounter Results Asymptomatic COVID-19 Virus (Coronavirus) by PCR Nose (05/11/2021 10:42 AM CDT) Analysis Performed At Patho logist Time Signature SARS CoV2 PCR Negative Negative 05/12/2021 [facility] 5:40 PM CDT LABORATORY Comment: NEGATIVE: SARS-CoV-2 (COVID-19) RNA not detected, presumed negative. Specimen Anatomical Collection Method Collection Time Receive d Time (Source) Location / / Volume Laterality Swab NASAL STRUCTURE / Non-blood 05/11/2021 10:42 2020 Unknown Collection / AM CDT 10:42 AM CDT Unknown Narrative [facility] - 05/12/2021 5:40 PM C DT Testing was performed using the Aptima SARS-CoV-2 Assay on the [employer] Instrument System. Additional in formation about this [...] COVID-19. This test was validated by the [facility] Infectious Diseases Diagnostic [facility]. This lab oratory is certified under the Clinical Laboratory Improvement Amen dments of 1987 (CLIA-88) as qualified to perform high complexity lab oratory testing. Brenda Willoughby PA-C LAB - MICRO GENERAL ORDERABL ES Performing Organization Address City/State/ZIP Code Phon e Number [facility] [place] [address] Diag. 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 documented in this encounter Care Teams Baseball Umpire For [employer] Relationship Specialty Start Date End Date Anatoliy Jackson, PCP - General 05/14/12 Heath More PCP - Internal Medicine INTERNAL MEDICINE - 01/06/14 MD Andreas ENDOCRINOLOGY, ENDOCRINE CLINIC DIABETES & METABOLISM [facility] [address] [facility] [address] [place] [phone] Peter Gipson PCP - Urology 04/02/15 MD Jordan MET [facility] [address] [place] [address] [address] [place], [place] [phone] Peter Mcmullen Assigned Musculoskeletal 06/01/20 MD Mahendra Provider [address] [place], [place] [phone] Hallie Maldonado, Assigned Heart and 02/22/2105/18 HAUL TRUCK DRIVER ULTRASOUND TECHNOLOGIST Vascular Provider [address] [id number] documented as of this encounter
--- OUTSIDE RECORDS SUMMARY | 2022-05-02 12:28 | XMS_ITS | Encounter Summary ---
:1950 Author Organization [place] Address [address] [facility] [place] [address] Care Team Providers Name Role Phone Anatoliy Jackson MD Primary Care Provider Heath More MD Unavailable Peter Gipson MD Unavailable Peter Mcmullen MD Unavailable Hallie Maldonado APRN REAL ESTATE ASSESSOR Unavailable [phone] Reason for Visit Rehab Therapy Cardiac Therapy (Routine) - Closed Specialty Diagnoses / Procedures Referred By Contact Refer red To Contact CARDIAC REHAB Diagnoses Coronary artery disease involving [place] coronary artery of [place] heart without angina pectoris [address] [place] [address] Phone: Referral ID Status Reason Start Date Expiration Date Visits Requ ested Visits Authorized [id number] Closed 05/01/2021 08/09/2021 36 36 Encounter Details Date Type Department Care Team Description 05/07/2021 Hospital Encounter [facility] Cardiac Jose Robertop Lucio lopez MD [address] [place] [address] and Pulmonary 2, [facility] [address] [place] [address] Social History Tobacco Use [...] 1 capsule by 0 mouth every morning famotidine (PEPCID) 20 Take 1 tablet (20 mg) 28 tablet 0 05/09/2021 MG tabletIndications: by mouth 2 times S/P CABG (coronary daily for 14 days artery bypass graft) amLODIPine (NORVASC) 10 Take 1 tablet (10 [...] tabletIndications: S/P CABG (coronary artery bypass graft) furosemide (LASIX) 20 MG Take 1 tablet (20 mg) 90 tablet 0 05/07/2021 05/13/2021 tabletIndications: by mouth daily Coronary artery disease involving coronary bypass graft of newtok heart without angina pectoris, Coronary artery disease involving newtok coronary artery of newtok heart without angina pectoris hydrALAZINE (APRESOLINE) Take 1 tablet (25 mg) [...] mouth every Coronary artery disease evening involving newtok coronary artery of newtok heart without angina pectoris, Hyperlipidemia LDL goal [...] [facility] [address] [place] [id number] (Wo rk) 05/15/2022 Surgery Surgery Neo Torres MD BLEPHAROPLASTY BILATERAL [place] [facility]S, INTERNAL & SURGEONS PA PTOSIS REPAIR BILATERAL [address] [place] [address] (Wo rk) 06/25/2022 Ancillary Procedure Cardiology Kirk Silver MD [address] [place] [address] (Wo rk) Scheduled Procedures Name Priority Associated [...] on filedocumented in this encounter Care Teams Sales Representative Consultant Relationship Specialty Start Date End Date Anatoliy Jackson, PCP - General 05/14/12 Heath More PCP - Internal Medicine INTERNAL MEDICINE - 01/06/14 MD Andreas ENDOCRINOLOGY, ENDOCRINE CLINIC DIABETES & METABOLISM OF [facility] [address] [place] [address] Peter Gipson PCP - Urology 04/02/15 MD Jordan [facility] [address] [place] [address] Peter Mcmullen Assigned Musculoskeletal 06/01/20 MD Mahendra Provider [address] [place] [address] Hallie Maldonado, Assigned Heart and 02/22/2105/18 STEEL ROLLER REAL ESTATE ASSESSOR Vascular Provider [address] [place] [id number] documented as of this encounter
--- OUTSIDE RECORDS SUMMARY | 2022-05-02 12:28 | XMS_ITS | Encounter Summary ---
:1950 Author Organization [place] Address [address] [facility] [place] [address] Care Team Providers Name Role Phone Anatoliy Jackson MD Primary Care Provider Heath More MD Unavailable Peter Gipson MD Unavailable Peter Mcmullen MD Unavailable Hallie Maldonado APRN CUSTOMER STRATEGY MANAGER Unavailable [phone] Reason for Visit Reason Comments [facility] Patient Reports Hypotension and Weight Loss Encounter Details Date Type Department Care Team Description 05/10/2021 [facility] RN ([facility] Hypotension and [address] [facility] Weight Loss) [address] [place] [address] Social History Tobacco Use Types [...] encounter Progress Notes Elizabeth Theodore RN - 05/10/2021 11:00 AM CDT [facility] C.O[facility] 1033: Nikita left a message on the [facility].O.R[facility] Nurse Line reporting his blood pressures this morning are 106/53 and 30-seconds later 112/53 and a 6 lb weight loss since 05/07/21. 1130: Spoke with Nikita. I told him his blood pressures are excellent and loosing 6 lbs of fluid is great. Instructed him to call the [facility] Clinic Nurse Line [phone] or after hours number [phone] if his SBP drops < 100 mmHg or if he is symptomatic with any of his blood pressures. Such aslightheadedness, dizziness, fatigue. He stated understanding. He also reports he was able to walk a mile yesterday without difficulty. Instructed him to call the C.O.R.E[facility] Nurse Line if he needs anything else. Will route to Fadi Gomez CNP as an update. 05/07: 222 lbs 05/08: 220 lbs 05/09: 220 lbs 05/10: 214 lbs Elizabeth Theodore RN Fur Coat Sewer [facility].O.R[facility] Nurse Line: [phone] / Personal Line: [phone] 05/10/21 11:59 AM documented in this encounter Plan of Treatment Upcoming Encounters Date Type Specialty Care Team Description 05/15/2022 Hospital Encounter Surgery Singh Torres MD [facility] [address] [place] [address] (Wo rk) 05/15/2022 Surgery Surgery Neo Torres MD BLEPHAROPLASTY BILATERAL [place] [facility], INTERNAL & SURGEONS PA PTOSIS REPAIR BILATERAL [address] [place] [address] (Wo rk) 06/25/2022 Ancillary Procedure Cardiology Kirk Silver MD [address] [place] [address] (Wo rk) Scheduled Procedures Name Priority Associated [...] on filedocumented in this encounter Care Teams Director Of Enrollment Relationship Specialty Start Date End Date Anatoliy Jackson, PCP - General 05/14/12 Heath More PCP - Internal Medicine INTERNAL MEDICINE - 01/06/14 MD Andreas ENDOCRINOLOGY, ENDOCRINE CLINIC DIABETES & METABOLISM [facility] [address] [place] [phone] Peter Gipson PCP - Urology 04/02/15 MD Jordan [facility] UROLOGY [address] [facility] [address] [place], [place] [phone] Peter Mcmullen Assigned Musculoskeletal 06/01/20 MD Mahendra Provider [facility] [address] [facility] [address] [place], [place] [address] Hallie Maldonado, Assigned Heart and 02/22/2105/18 EDITOR SCHOOL PHOTOGRAPH CUSTOMER STRATEGY MANAGER Vascular Provider [address] [address] documented as of this encounter
--- OUTSIDE RECORDS SUMMARY | 2022-05-02 12:28 | XMS_ITS | Encounter Summary ---
:1950 Author Organization [place] Address [address] [facility] [place] [address] Care Team Providers Name Role Phone Anatoliy Jackson MD Primary Care Provider Heath More MD Unavailable Peter Gipson MD Unavailable Peter Mcmullen MD Unavailable Hallie Maldonado APRN PIGMENT SUPPLIER Unavailable [phone] Reason for Referral CV Testing (Routine) - Closed Specialty Diagnoses / Procedures Referred By Contact Refer red To Contact Diagnoses S/P CABG (coronary artery bypass graft) Brenda Willoughby PA-C Procedures Holter Monitor 48 hour Adult Pediatric [facility] AMB BP MONITORING W/SW >=24 HR, RECORD/SCAN/INTRP/RPT ZZ[facility] HOLTER RECORDING 24 HRS ZZHC HOLTER SCAN 24 HRS DC HOLTER RECORDING 24 HRS DC HOLTER SCAN 24 HRS [facility] DC AMB BP MONITORING W/SW >= 24 HR, RECORD/SCAN/INTRP/RPT HC HOLTER RECORDING 24 HRS HC HOLTER SCAN 24 HRS, [place] [address] Referral ID Status Reason Start Date Expiration Date Visits Requ ested Visits Authorized [id number] Closed 05/01/2021 05/01/2022 1 1 Reason for Visit CV Testing (Routine) - Closed Specialty Diagnoses / Procedures Referred By Contact Refer red To Contact Diagnoses S/P CABG (coronary artery bypass graft) Brenda Willoughby PA-C Procedures Holter Monitor 48 hour Adult Pediatric ZZC AMB BP MONITORING W/SW >=24 HR, RECORD/SCAN/INTRP/RPT ZZHC HOLTER RECORDING 24 HRS ZZHC HOLTER SCAN 24 HRS DC HOLTER RECORDING 24 HRS DC HOLTER SCAN 24 HRS [facility] AMB BP MONITORING W/SW >= 24 HR, RECORD/SCAN/INTRP/RPT HC HOLTER RECORDING 24 HRS HC HOLTER SCAN 24 HRS, [place] [address] Referral ID Status Reason Start Date Expiration Date Visits Requ ested Visits Authorized [id number] Closed 05/01/2021 05/01/2022 1 1 Encounter Details Date Type Department Care Team Description 05/07/[address] [facility] Brenda Willoughby S/P CABG ([facility] GO [place] artery bypass graft) [facility] [address] [place] [id number] [place] [address] [address] [place] [address] [phone] Social History Tobacco Use Types Packs/Day Years [...] artery disease involving coronary bypass graft of [place] heart without angina pectoris, Coronary artery disease involving [place] coronary artery of [place] heart without angina pectoris hydrALAZINE (APRESOLINE) Take [...] mouth every Coronary artery disease evening involving [place] coronary artery of [place] heart without angina pectoris, Hyperlipidemia LDL goal [...] [address] [place] [address] (Wo rk) 05/15/2022 Surgery Surgery Neo Torres MD BLEPHAROPLASTY BILATERAL [place] [facility] UPPER L IDS, INTERNAL & SURGEONS PA PTOSIS REPAIR BILATERAL [address] [place] [address] (Wo rk) 06/25/2022 Ancillary Procedure Cardiology Kirk Silver MD [address] [place] [id number] (Wo rk) Scheduled Procedures Name Priority Associated [...] Name Priority Date/Time Associated Diagnosis Comme nts HOLTER MONITOR 48 HOUR Routine 05/07/2021 8:51 AM S/P CABG (co ronary APPLICATION SCAN ANALYSIS CDT artery bypass g raft) AND PROVIDER INTERPRETATION documented in this encounter Results HOLTER MONITOR 48 HOUR APPLICATION SCAN ANALYSIS AND PROVIDER INTERPRETATION (05/07/2021 8:51 AM CDT) Anatomical Region Laterality Modality Other Specimen (Source) Anatomical Collection Method Collection Time Re ceived Time Location / / Volume Laterality 05/07/2021 8:43 AM CDT Brenda Willoughby PA-C CV CARDIAC SERVICES ORDERABL ES documented in this encounter Visit Diagnoses Diagnosis S/P CABG (coronary artery bypass graft) 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 documented in this encounter Care Teams Transportation Engineering Technician Relationship Specialty Start Date End Date Anatoliy Jackson, PCP - General 05/14/12 Heath More PCP - Internal Medicine INTERNAL MEDICINE - 01/06/14 MD Andreas ENDOCRINOLOGY, [facility] DIABETES & METABOLISM OF [facility] [address] [facility] [address] [place] [phone] Peter Gipson PCP - Urology 04/02/15 MD Jordan [facility] UROLOGY [address] [facility] [address] [place], [place] [id number] Peter Mcmullen Assigned Musculoskeletal 06/01/20 MD Mahendra Provider [address] [place], [place] [phone] Hallie Maldonado, Assigned Heart and 02/22/2105/18 POLITICAL ANALYST PIGMENT SUPPLIER Vascular Provider [address] [place] [id number] documented as of this encounter
--- OUTSIDE RECORDS SUMMARY | 2022-05-02 12:28 | XMS_ITS | Encounter Summary ---
:1950 Author Organization [place] Address [address] [place] [address] Care Team Providers Name Role Phone Anatoliy Jackson MD Primary Care Provider Heath More MD Unavailable Peter Gipson MD Unavailable Peter Mcmullen MD Unavailable Hallie Maldonado APRN METAL PICKLING EQUIPMENT OPERATOR Unavailable [phone] Encounter Details Date Type Department Care Team Description 05/07/2021 Telephone [facility] Heart Ming Pisano PA-C [facility] [place] [address] [place] [address] [place] [address] [phone] Social History Tobacco Use Types Packs/Day Years [...] this encounter Miscellaneous Notes Telephone Encounter - Shavon Pisano PA-C - 05/07/2021 3:29 PM CDT CVTS Received call from patient with questions/requesting clarifications in regards to his appointments and blood pressure. He had an appointment with Fadi Gomez NP with cardiology today regarding his blood pressure. He was started on lasix 20mg daily and given a new prescription for hydralazine 25mg daily PRN. Patient reports he dropped off his prescription and was told it was too soon per his insurance to pick this up as he should only be taking once per day as needed and would need to pay out of pocket. Heis concerned because his insurance will not pay for it for another 7 days and he only has 3 pills left. He requests clarification regarding how often he should be taking this-- agreed with other providersthat he should only need to take once per day as needed if SBP above 170. He reports he takes his blood pressure frequently, about 10x per day, including before and after walking and has had a couple readings in the past week or so above 170 and has taken the hydralazine more than once per day on a couple occasions for that reason. Discussed with patient that he should only be taking his blood pressure twice daily a couple hours after his medications. Discussed with Fadi Gomez NP as well and agreed that patient should not merchandise pickup/receiving associate his new prescription just yet and see how the next couple days go with his new regimen. If he is reliably needing hydralazine daily or twice daily, he is instructed to call cardiology and she will amend the prescription appropriately Communicated this with the patient as well and he verbalized understanding. Discussed that he will be following with cardiology for blood pressure management going forward and instructed him to call their team with any further questions about his blood pressure. He verified that he has their contact kathy glez. We will keep our CV surgery appointment with him tomorrow to assess his surgical recovery and incisions. All questions answered. Shavon Pisano PA-C documented in this encounter Plan of Treatment Upcoming Encounters Date Type Specialty Care Team Description 05/15/2022 Hospital Encounter Surgery Singh Torres MD [facility] [address] [place] [address] (Wo rk) 05/15/2022 Surgery Surgery Neo Torres MD BLEPHAROPLASTY BILATERAL [facility] UPPER L IDS, INTERNAL & SURGEONS PA PTOSIS REPAIR BILATERAL [address] [place] [address] (Wo rk) 06/25/2022 Ancillary Procedure Cardiology Kirk Silver MD [address] [place] [phone] (Wo rk) Scheduled Procedures Name Priority Associated [...] on filedocumented in this encounter Care Teams Self Pay Specialist Relationship Specialty Start Date End Date Anatoliy Jackson PCP - General 05/14/12 Heath More PCP - Internal Medicine INTERNAL MEDICINE - 01/06/14 MD Andreas ENDOCRINOLOGY, [facility]IC DIABETES & METABOLISM [facility] [address] [place] [phone] Peter Gipson PCP - Urology 04/02/15 MD Jordan [facility] [address] [place] [address] [place] [address] Peter Mcmullen Assigned Musculoskeletal 06/01/20 MD Mahendra Provider [address] [facility] [address] [place], [place] [address] Hallie Maldonado, Assigned Heart and 02/22/2105/18 GRANT OFFICER METAL PICKLING EQUIPMENT OPERATOR Vascular Provider [address] [place] [id number] documented as of this encounter
--- OUTSIDE RECORDS SUMMARY | 2022-05-02 12:28 | XMS_ITS | Encounter Summary ---
:1950 Author Organization [place] Address [address] [place] [address] Care Team Providers Name Role Phone Anatoliy Jackson MD Primary Care Provider Heath More MD Unavailable Peter Gipson MD Unavailable Peter Mcmullen MD Unavailable Hallie Maldonado APRN ASSOCIATE PROFESSOR OF ART Unavailable [phone] Encounter Details Date Type Department Care Team Description 05/08/2021 Orders Only [facility] Brenda Willoughby Enc ounter for Heart [facility] [place] PA-C screening for other [address] [place] [address] [place], [place] [phone] (Wo rk) Social History Tobacco Use Types [...] [address] [place] [address] (Wo rk) 05/15/2022 Surgery Surgery Neo Torres MD BLEPHAROPLASTY BILATERAL [place] [facility] U[facility] L IDS, INTERNAL & SURGEONS PA PTOSIS REPAIR BILATERAL [address] [place] [address] (Wo rk) 06/25/2022 Ancillary Procedure Cardiology Kirk Silver MD [address] [place] [address] (Wo rk) Scheduled Procedures Name Priority Associated [...] using the Aptima SARS-CoV-2 Assay on the [employer] Instrument System. Additional in formation about this [...] COVID-19. This test was validated by the [facility] Infectious Diseases Diagnostic Laboratory. This lab oratory is certified under the Clinical Laboratory Improvement Amen dments of 1987 (CLIA-88) as qualified to perform high complexity lab oratory testing. Brenda Willoughby PA-C LAB - MICRO GENERAL ORDERABL ES Performing Organization Address City/State/ZIP Code Phon e Number [facility] [place] [phone] Diag. Lab [address] [facility], [address] 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 documented in this encounter Care Teams Chestnut Tanner Relationship Specialty Start Date End Date Anatoliy [place] PCP - General 05/14/12 Heath More PCP - Internal Medicine INTERNAL MEDICINE - 01/06/14 MD Andreas ENDOCRINOLOGY, ENDOCRINE CLINIC DIABETES & METABOLISM OF [facility] [address] [place] [phone] Peter Gipson PCP - Urology 04/02/15 MD Jordan [facility] [address] [facility] [address] [place], [place] [phone] Peter Mcmullen Assigned Musculoskeletal 06/01/20 MD Mahendra Provider [address] [facility] [address] [place], [place] [address] Hallie Maldonado, Assigned Heart and 02/22/2105/18 PROPERTY FIELD INSPECTOR ASSOCIATE PROFESSOR OF ART Vascular Provider [address] [place] [address] documented as of this encounter
--- OUTSIDE RECORDS SUMMARY | 2022-05-02 12:28 | XMS_ITS | Encounter Summary ---
:1950 Author Organization [place] Address [address] [place] [address] Care Team Providers Name Role Phone Anatoliy Jackson MD Primary Care Provider Heath More MD Unavailable Peter Gipson MD Unavailable Peter Mcmullen MD Unavailable Hallie Maldonado APRN DIRECTOR INTELLIGENCE ANALYSIS PROGRAMS Unavailable [phone] Reason for Visit Reason Comments FU after CABG Encounter Details Date Type Department Care Team Description 05/08/2021 Office Visit [facility] Heart Pleu ral effusion (Primary Dx); Clinic [place] S/P CABG (coronary artery by pass graft) [address] [facility] [place] [address] Social History Tobacco Use Types Packs/Day Years [...] Sign Reading Time Taken Comments Blood Pressure 141/64 05/08/2021 2:30 PM CDT Pulse 83 05/08/2021 2:30 PM CDT Temperature - - Respiratory Rate - - Oxygen Saturation 99% 05/08/2021 2:30 PM CDT Inhaled Oxygen Concentration - - Weight 102.1 kg (225 lb) 05/08/2021 2:30 PM CDT Height 180.3 cm (5' 11) 05/08/2021 2:30 PM CDT Body Mass Index 31.38 05/08/2021 2:30 PM CDT documented in this encounter Patient Instructions Patient InstructionsBrenda Willoughby PA-C - 05/08/2021 2:30 PM CDT Date of Surgery: 04/19/21 Drivin05/17/21 with no narcotic pain medication 10 lbs weight restriction ends: 06/14/21 then 20 lbs for a week. Covid testing: Sat [facility] at 10:45 am 05/11/21, enter thru ED doors. Thoracentesis Monday 05/14 at 1:15 pm Cardiac Rehab at 2:45 PM Both at [facility] documented in this encounter Progress Notes Brenda Willoughby PA-C - 05/08/2021 2:30 PM CDT CV Surgery Post Op Follow Up Note: Assessment/Plan: Mr. Anderson is doing ok in their post operative period. Despite his last US thora in hospital with removal of 1L fluid, his L lung is diminished today. I ordered US thoracentesis next Thursday for him and will follow up with him. He has follow up apt with Fadi Jason NP with cards who has done a great job managing his HTN meds. SBP/HR at home: variable 150-200s/60s, HR: 60-70s Resp: breathing, using IS 3 times/day, [id number] Incisions: healing, washing with antibacterial soap Extremities/weight: does not feel to be carrying around additional fluid Rehab plans: walking daily and is attending Cardiac rehab Follow up apts: 05/13/21 [facility] All of the patient's questions were answered. Our contact information was given to him if they should have any further questions/concerns. No further follow-up is needed with us. S: From discharge summary: On 04/19/21 Mr. Anderson successfully underwent Coronary artery bypass grafting x 3 with left internal mammary artery to the left anterior descending, reverse saphenous vein graft to the posterior descending artery, reverse saphenous vein graft to the obtuse marginal 2 artery, endoscopic vein harvest from the left lower extremity, intraoperative KARIE by Dr. Kushal Gardner. Was extubated within 24 hours of surgery. Once he was weaned off hemodynamic stabilizing gtt's, transferred to the surgical floor. Had some transient hyperglycemia treated with an insulin gtt, transitioned to sliding scale insulin and the hospitalist service was consulted to help manage his sugars as he is insulin dependent. Had some fluid overload treated with diuretic medication. At discharge he is 1kg above pre-op weightand was given an extra dose of diuretics before discharge. Heart rhythm remained stable. He progressed well with cardiac rehab. He is discharged to home on pod# 6 with the help of his family. Since being discharged from hospital, patient is recovering at home after last readmission for HTN. Allergies: Allergies Allergen Reactions ??? Atorvastatin Other (See Comments) Congestion ??? Epinephrine Palpitations Medications: Current Outpatient Medications: ??? acetaminophen (TYLENOL) 325 MG tablet, Take 2 tablets (650 mg) by mouth every 4 hours as needed for mild pain, Disp: 40 tablet, Rfl: 0 ??? amLODIPine (NORVASC) 10 MG tablet, Take 1 tablet (10 mg) by mouth daily, Disp: 30 tablet, Rfl: 3 ??? aspirin (ASA) 81 MG chewable tablet, 4 tablets (324 mg) by Oral or NG Tube route daily, Disp: 30tablet, Rfl: 0 ??? cloNIDine (CATAPRES) 0.1 MG tablet, Take 1 tablet (0.1 mg) by mouth 2 times daily, Disp: 60 tablet, Rfl: 3 ??? Continuous Blood Gluc Sensor (DEXCOM G6 SENSOR) [facility], , Disp: , Rfl: ??? cyanocobalamin (VITAMIN B-12) 1000 MCG tablet, Take 1,000 mcg by mouth daily, Disp: , Rfl: ??? famotidine (PEPCID) 20 MG tablet, Take 1 tablet (20 mg) by mouth 2 times daily for 14 days, Disp: 28 tablet, Rfl: 0 ??? ferrous sulfate 140 (45 Fe) MG TBCR CR tablet, Take 1 tablet (140 mg) by mouth daily, Disp: 30 tablet, Rfl: 1 ??? furosemide (LASIX) 20 MG tablet, Take 1 tablet (20 mg) by mouth daily, Disp: 90 tablet, Rfl: 0 ??? gabapentin (NEURONTIN) 300 MG capsule, Take 1 capsule (300 mg) by mouth 2 times daily, Disp: , Rfl: ??? glucagon 1 MG kit, 1 mg once as needed for low blood sugar, Disp: , Rfl: ??? HEMP OIL OR EXTRACT OR OTHER CBD CANNABINOID, NOT MEDICAL CANNABIS,, Apply 1 Application topically 2 times daily as needed (Arthritis on right knee and wrist) , Disp: , Rfl: ??? hydrALAZINE (APRESOLINE) 25 MG tablet, Take 1 tablet (25 mg) by mouth daily as needed (for bloodpressure >170 mmHg), Disp: 20 tablet, Rfl: 1 ??? hydrALAZINE (APRESOLINE) 50 MG tablet, Take 2 tablets (100 mg) by mouth 3 times daily, Disp: 90 tablet, Rfl: 0 ??? insulin glargine (LANTUS PEN) 100 UNIT/ML pen, Inject 55 Units Subcutaneous At Bedtime, Disp: , Rfl: ??? insulin lispro (HUMALOG) 100 UNIT/ML vial, 1 unit insulin for 5 carb units plus sliding scale asbelow: For Pre-Meal BG 150 - 199 give 2 unit. For Pre-Meal BG 200 - 249 give 4 units. For Pre-Meal BG 250 - 299 give 6 units. For Pre-Meal BG 300 - 349 give 8 units. For Pre-Meal BG greater than 350 - give 10 units., Disp: , Rfl: ??? isosorbide mononitrate (IMDUR) 30 MG 24 hr tablet, Take 1 tablet (30 mg) by mouth daily, Disp: 30 tablet, Rfl: 3 ??? melatonin 3 MG CAPS, Take 3 mg by mouth At Bedtime, Disp: , Rfl: ??? ONE TOUCH ULTRA TEST STRP, as directed, Disp: 100, Rfl: prn ??? Polyethylene Glycol 400 (BLINK TEARS OP), Place 1 drop into both eyes daily as needed, Disp: , Rfl: ??? rosuvastatin (CRESTOR) 40 MG tablet, Take 1 tablet (40 mg) by mouth every evening, Disp: 90 tablet, Rfl: 3 ??? sertraline (ZOLOFT) 50 MG tablet, Take 50 mg by mouth daily Sleep doctor recommends taking at bedtime, Disp: , Rfl: ??? SYRINGE B-D MICRO FINE 1/2 CC SYRINGES, as directed, Disp: 100, Rfl: prn ??? Turmeric 500 MG CAPS, Take 1 capsule by mouth every morning , Disp: , Rfl: ??? polyethylene glycol (MIRALAX) 17 GM/Dose powder, Take 17 g by mouth daily (Patient not taking: Reported on 05/08/2021), Disp: 510 g, Rfl: 0 ??? senna-docusate (SENOKOT-S/PERICOLACE) 8.6-50 MG tablet, Take 1 tablet by mouth 2 times daily as needed for constipation (Patient not taking: Reported on 05/08/2021), Disp: 20 tablet, Rfl: 0 Physical Exam: Gen: NAD CV: s1/s2, no m/r/g/ Lungs: course, diminished L base Sternum: cdi Extremities: trace LE edema in L leg Brenda Willoughby PA-C CV Surgery [facility] Pager: [phone] documented in this encounter Plan of Treatment Upcoming Encounters Date Type Specialty Care Team Description 05/15/2022 Hospital Encounter Surgery Singh Torres MD [facility] [place] [address] [place] [address] (Wo rk) 05/15/2022 Surgery Surgery Neo Torres MD BLEPHAROPLASTY BILATERAL [facility] UPPER L IDS, INTERNAL & SURGEONS PA PTOSIS REPAIR BILATERAL [address] [place] [address] (Wo rk) 06/25/2022 Ancillary Procedure Cardiology Kirk Silver MD [address] [place] [address] (Wo rk) Scheduled Procedures Name Priority Associated Diagnoses Date/Time REPAIR, PTOSIS, BILATERAL, Dermatochalas is 05/15/2022 7:30 AM CDT WITH BILATERAL BLEPHAROPLASTY 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 REPAIR, ECTROPION, EYE, Dermatochalasis 05/15/2022 7:30 AM CDT BILATERAL 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 documented as of this encounter Results US Thoracentesis (05/14/2021 2:12 PM CDT) Anatomical [...] procedure. The skin overlying the left chest bilingual inside sales representative iorly was prepped and draped in the [...] ??There were no immediate complications. Patient left th e ultrasound suite in satisfactory condition. Procedure [...] procedure. The skin overlying the left chest bilingual inside sales representative iorly was prepped and draped in the [...] There were no immediate complications. Patient left th e ultrasound suite in satisfactory condition. IMPRESSION: Technically successful thora centesis without immediate complications. 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 documented in this encounter Care Teams Knife Finisher Relationship Specialty Start Date End Date Anatoliy Jackson, PCP - General 05/14/12 Heath More PCP - Internal Medicine INTERNAL MEDICINE - 01/06/14 MD Andreas ENDOCRINOLOGY, ENDOCRINE CLINIC DIABETES & METABOLISM OF [facility] [address] [place] [address] [address] [place] [address] Peter Gipson PCP - Urology 04/02/15 MD Jordan [facility] [address] [place] [address] [address] [place], [place] [phone] Peter Mcmullen Assigned Musculoskeletal 06/01/20 MD Mahendra Provider [address] [place], [place] [address] Hallie Maldonado, Assigned Heart and 02/22/2105/18 MATERIAL HANDLING CREW SUPERVISOR DIRECTOR INTELLIGENCE ANALYSIS PROGRAMS Vascular Provider [address] [place] [address] [id number] documented as of this encounter
--- OUTSIDE RECORDS SUMMARY | 2022-05-02 12:28 | XMS_ITS | Encounter Summary ---
:1950 Author Organization [place] Address [address] [facility] [place] [address] Care Team Providers Name Role Phone Anatoliy Jackson MD Primary Care Provider Heath More MD Unavailable Peter Gipson MD Unavailable Peter Mcmullen MD Unavailable Hallie Maldonado APRN RIPPER OPERATOR Unavailable [phone] Encounter Details Date Type Department Care Team Description 05/13/2021 Travel Social History Tobacco Use Types Packs/Day [...] 05/15/2022 Hospital Encounter Surgery Singh Torres MD [facility] [address] [place] [address] (Wo rk) 05/15/2022 Surgery Surgery Neo Torres MD BLEPHAROPLASTY BILATERAL [facility]S, INTERNAL & SURGEONS PA PTOSIS REPAIR BILATERAL [address] [place] [address] (Wo rk) 06/25/2022 Ancillary Procedure Cardiology Kirk Silver MD [address] [place] [id number] (Wo rk) Scheduled Procedures Name Priority Associated [...] on filedocumented in this encounter Care Teams Equipment Maintenance Supervisor Relationship Specialty Start Date End Date Anatoliy Jackson, PCP - General 05/14/12 Heath More PCP - Internal Medicine INTERNAL MEDICINE - 01/06/14 MD Andreas ENDOCRINOLOGY, ENDOCRINE CLINIC DIABETES & METABOLISM OF [facility] [address] [place] [address] Peter Gipson PCP - Urology 04/02/15 MD Jordan [facility] [address] [place] [address] Peter Mcmullen Assigned Musculoskeletal 06/01/20 MD Mahendra Provider [address] [place], [place] [address] Hallie Maldonado, Assigned Heart and 02/22/2105/18 CLINICAL BIOSTATISTICIAN RIPPER OPERATOR Vascular Provider [address] [id number] documented as of this encounter
--- OUTSIDE RECORDS SUMMARY | 2022-05-02 12:29 | XMS_ITS | Encounter Summary ---
:1950 Author Organization [facility] Address [address] [place] [address] Care Team Providers Name Role Phone Anatoliy Jackson MD Primary Care Provider Heath More MD Unavailable Peter Gipson MD Unavailable Peter Mcmullen MD Unavailable Hallie Maldonado APRN SLEEVE SEPARATOR Unavailable [phone] Reason for Visit Reason Comments Generalized Weakness Auth/Cert Specialty Diagnoses / Procedures Referred By Contact Refer red To Contact Med Surg Diagnoses Weakness of both legs Near syncope Anemia, unspecified type Weakness Weakness of both legs Near syncope Anemia, unspecified type Weakness [facility] [address] [place] [address] Phone: Referral ID Status Reason Start Date Expiration Date Visits Requ ested Visits Authorized [id number] 1 1 Encounter Details Date Type Department Care Team Description 04/27/2021 Emergency [facility] Jordan Merida MD Generalized muscle weakness; [facility] Adverse effect of drug, initial encounter Dept [place] [address] [place] [address] [place] [address] [phone] Social History Tobacco Use Types Packs/Day Years [...] been in contact with No / Unsure 04/27/2021 1:12 PM CDT someone who was confirmed or 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 documented as of this encounter Last Filed Vital Signs Vital Sign Reading Time Taken Comments Blood Pressure 162/79 04/27/2021 6:00 PM CDT Pulse 52 04/27/2021 6:00 PM CDT Temperature 37.2 ??C (98.9 ??F) 04/27/2021 1:23 PM CDT Respiratory Rate 20 04/27/2021 6:00 PM CDT Oxygen Saturation 100% 04/27/2021 6:00 PM CDT Inhaled Oxygen Concentration - - Weight 100.7 kg (222 lb) 04/27/2021 1:23 PM CDT Height 180.3 cm (5' 11) 04/27/2021 1:23 PM CDT Body Mass Index 30.96 04/27/2021 1:23 PM CDT documented in this encounter Discharge Instructions Discharge InstructionsJordan Merida MD - 04/27/2021 5:52 PM CDT Decrease Lisinopril from 40 mg daily to 20 mg daily Lasix 20 mg daily for 3 days Continue to monitor your blood pressure and daily weights Follow up with primary MD Return if worse AttachmentsThe following attachments cannot be sent through Care Everywhere. Weakness (Uncertain Cause) (Nepalese)documented in this encounter Medications at Time of [...] 0 B-12) 1000 MCG tablet mouth daily HEMP OIL OR EXTRACT OR Apply 1 [...] carvedilol (COREG) 6.25 Take 1 tablet (6.25 120 tablet 3 02/202105/01/2021 MG tabletIndications: mg) by mouth 2 times Coronary artery disease daily (with meals) involving hoopa coronary artery of hoopa heart without angina pectoris cloNIDine (CATAPRES) Take 1 tablet (0.1 60 tablet 3 021 05/17/2021 0.1 MG mg) by mouth 2 times tabletIndications: S/P daily CABG (coronary artery bypass graft) doxycycline hyclate Take 1 capsule (100 20 capsule 0 021 05/01/2021 (VIBRAMYCIN) 100 MG mg) by mouth 2 times capsule daily for 10 days ferrous sulfate 140 (45 Take 1 tablet (140 30 tablet 1 04/1009/10/2021 Fe) MG TBCR CR mg) by mouth daily tabletIndications: S/P CABG (coronary artery bypass graft) furosemide (LASIX) 20 Take 1 tablet (20 mg) 3 tablet 0 05/01/2021 MG tablet by mouth daily for 3 days gabapentin (NEURONTIN) Take 600 mg by mouth 0 05/01/2021 300 MG capsule 2 times daily At 8:30pm and at bedtime insulin glargine Inject 70 Units 0 04/25/2021 (LANTUS VIAL) 100 Subcutaneous At UNIT/ML Bedtime vialIndications: Type 2 diabetes mellitus with other circulatory [...] units. long-term current use of insulin (H) lisinopril (ZESTRIL) 40 Take 1 tablet (40 mg) 30 tablet 1 0 04/26/2021 05/01/2021 MG tabletIndications: by mouth daily S/P CABG (coronary artery bypass graft) methocarbamol (ROBAXIN) Take 1 tablet (500 30 tablet 0 04/1005/01/2021 500 MG mg) by mouth every 6 tabletIndications: S/P hours as needed for CABG (coronary artery muscle spasms bypass graft) oxyCODONE (ROXICODONE) Take 1-2 tablets 10 tablet 0 021 05/01/2021 5 MG tabletIndications: (5-10 mg) by mouth S/P CABG (coronary every 4 hours as artery bypass graft) needed for moderate to severe pain polyethylene glycol Take 17 g by mouth 510 g 0 04/25/20 21 06/12/2021 (MIRALAX) 17 GM/Dose daily powderIndications: S/P CABG (coronary artery bypass graft) rosuvastatin (CRESTOR) Take 1 tablet (40 mg) 90 tablet 3 10/17/2021 40 MG by mouth every tabletIndications: evening Coronary artery disease involving hoopa coronary artery of hoopa heart without angina pectoris, Hyperlipidemia LDL goal <70, S/P coronary artery stent placement senna-docusate Take 1 tablet by 20 tablet 0 04/25/202110/2020 (SENOKOT-S/PERICOLACE) mouth 2 times daily 8.6-50 MG as needed for tabletIndications: S/P constipation CABG (coronary artery bypass graft) documented as of this encounter ED Notes Christina Gómez RN - 04/27/2021 3:[address] [facility] ED Nurse Handoff Report ED Chief complaint: Generalized Weakness ED Diagnosis: Final diagnoses: None Code Status: See hospitalist Allergies: Allergies Allergen Reactions ??? Atorvastatin Other (See Comments) Congestion ??? Epinephrine Palpitations Patient Story: Lower extremity weakness Focused Assessment: Pt states he had recent bypass surgery and has noticed many instances of bilat lower extremity weakness. Today it occurred twice where he felt like his legs were going to buckle. 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 Family Comments: at the bedside OBS brochure/video discussed/provided to patient/family: NA Name of person given brochure if not patient: NA Relationship to patient: NA For the majority of the shift this patient's behavior was Green. Behavioral interventions performed were NA. ED NURSE PHONE NUMBER: [phone] Yang Prince RN - 04/27/2021 1:31 PM CDT Bed: ED15 Expected date: Expected time: Means of arrival: Comments: Triage Yang Prince RN - 04/27/2021 1:30 PM CDT Pt reports having bilat LE weakness. Pt notes having triple bypass surgery on 04/19. Pt also notes increased edema to LEs with mild SOB. Jordan Merida MD - 04/27/2021 1:12 PM CDT History Chief Complaint: Generalized Weakness HPI Nikita Anderson is a 70 year old male who presents with weakness. He recently had CABG surgery and had several medication changes at time of discharge. He notes slight edema in his legs. He has had 3 episodes were he felt weak, mainly in his legs. He denies chest pain, shortness of breath, abdominal pain, or urinary symptoms. His main symptom is occasional weakness in his legs and lightheadedness. Review of Systems + leg weakness, lightheadedness, - fever, chills, cough, chest pain, abdominal pain, urinary symptoms, all other systems negative Allergies: Atorvastatin Epinephrine Medications: furosemide (LASIX) 20 MG tablet acetaminophen (TYLENOL) 325 MG tablet amLODIPine (NORVASC) 10 MG tablet aspirin (ASA) 81 MG chewable tablet carvedilol (COREG) 6.25 MG tablet cloNIDine (CATAPRES) 0.1 MG tablet Continuous Blood Gluc Sensor (DEXCOM G6 SENSOR) MISC cyanocobalamin (VITAMIN B-12) 1000 MCG tablet famotidine (PEPCID) 20 MG tablet ferrous sulfate 140 (45 Fe) MG TBCR CR tablet gabapentin (NEURONTIN) 300 MG capsule HEMP OIL OR EXTRACT OR OTHER CBD CANNABINOID, NOT MEDICAL CANNABIS, insulin glargine (LANTUS VIAL) 100 UNIT/ML vial insulin lispro (HUMALOG) 100 UNIT/ML vial lisinopril (ZESTRIL) 40 MG tablet melatonin 3 MG CAPS methocarbamol (ROBAXIN) 500 MG tablet ONE TOUCH ULTRA TEST STRP oxyCODONE (ROXICODONE) 5 MG tablet polyethylene glycol (MIRALAX) 17 GM/Dose powder Polyethylene Glycol 400 (BLINK TEARS OP) rosuvastatin (CRESTOR) 40 MG tablet senna-docusate (SENOKOT-S/PERICOLACE) 8.6-50 MG tablet sertraline (ZOLOFT) 50 MG tablet SYRINGE B-D MICRO FINE 1/2 CC SYRINGES Turmeric 500 MG CAPS Past Medical History: Past Medical History: Diagnosis Date ??? Angina pectoris (H) ??? Cancer (H) 1979 ??? Coronary artery disease 07/2013, 12/2014 ??? Diabetes (H) ??? Polyneuropathy in diabetes(357.2) ??? Pure hypercholesterolemia ??? PVD (peripheral vascular disease) (H) ??? Type II or unspecified type diabetes mellitus with neurological manifestations, not stated as uncontrolled(250.60) ??? Unspecified essential hypertension Patient Active Problem List Diagnosis Date Noted ??? CAD (coronary artery disease) 04/19/2021 Priority: Medium ??? Status post coronary angiogram 03/13/2021 Priority: Medium ??? Abnormal stress test 02/26/2021 Priority: Medium Added automatically from request for surgery [id number] ??? Dyspnea on exertion 12/14/2020 Priority: Medium ??? Chronic renal insufficiency, stage 3 (moderate) 11/30/2017 Priority: Medium ??? 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 Claudication of both lower extremities (H) 11/30/2017 Priority: Medium ??? S/P coronary artery stent placement 06/12/2015 Priority: Medium ??? Angina pectoris (H) 04/02/2015 Priority: Medium ??? Coronary artery disease involving hoopa coronary artery of hoopa heart without angina pectoris Priority: Medium 04/09/2015 - PCI and JAVIER to mLCx, PCI and JAVIER to OM2 and PCI and JAVIER to osital and pLCx 01/03/15 CATH hemodynamically significant lesions in the second obtuse marginal,distal circumflex before OM 3 and the OM 24, and right PDA. The distalright system is severely calcified and there is moderate circumflex calcification Moderate non-obstructive CAD per 07/22 angiogram ??? Peripheral vascular disease (H) 09/27/2013 Priority: Medium RY 09/2013: Normal resting ABIs bilaterally with a mild drop with exercise suggesting mild, non-obstructive peripheral arterial disease RY 08/2012: The right at rest 1.19.The right post exercise 0.76. The left at rest 1.04 The left RY post exercise was 0.75 Lower Extremity Arterial US 08/2011: No significant obstructive peripheral arterial disease seen bilaterally. RY at rest was normal (right 1.12, left 1.10). Problem list name updated by automated process. Provider to review ??? Essential hypertension 03/27/2004 Priority: Medium Renal Artery US: 09/2013:Patent bilateral renal arteries Renal Artery US 08/2012: Right and Left <60% stenosis Problem list name updated by automated process. Provider to review ??? Type 2 diabetes mellitus with circulatory disorder (H) 11/16/2002 Priority: Medium Problem list name updated by automated process. Provider to review ? ? Hyperlipidemia LDL goal <70 11/16/2002 Priority: Medium Problem list name updated by automated process. Provider to review Past Surgical History: Past Surgical History: Procedure [...] Coronary Angiogram; Surgeon: Darwin Valero MD; Location: [facility] ??? CV INSTANTANEOUS WAVE-FREE RATIO N/A 03/13/2021 Procedure: Instantaneous Wave-Free Ratio; Surgeon: Darwin Valero MD; Location: [facility] ??? HC LEFT HEART CATHETERIZATION 04/01/2016 mild LAD (30%), 50-60% rPDA ? ? HEAD & NECK SURGERY wisdom teeth extractions, subacious cyst removed ??? HEART CATH CORONARY ANGIOGRAM W/LV GRAM 01/03/15 70% prox PDA - FFR 0.77, 70% OM2 - FFR 0.79, 70-80% OM3 -FFR 0.77, 70-80% OM4, Family History: Family History Problem Relation Age of Onset ??? Hypertension Mother ??? Diabetes Maternal Grandmother ??? Hypertension Maternal Grandmother ??? Hypertension Maternal Grandfather Social History: Physical Exam Patient Vitals for the past 24 hrs: BP Temp Temp src Pulse Resp SpO2 Height Weight 04/27/21 1800 (!) 162/79 -- -- 52 20 100 % -- -- 04/27/21 1700 (!) 143/68 -- -- 52 11 92 % -- -- 04/27/21 1600 123/58 -- -- (!) 47 16 99 % -- -- 04/27/21 1545 -- -- -- -- 16 99 % -- -- 04/27/21 1530 128/62 -- -- (!) 49 19 100 % -- -- 04/27/21 1500 -- -- -- (!) 48 17 95 % -- -- 04/27/21 1430 (!) 144/66 -- -- 51 11 98 % -- -- 04/27/21 1400 135/55 -- -- 50 18 95 % -- -- 04/27/21 1345 (!) 147/63 -- -- 50 20 100 % -- -- 04/27/21 1323 (!) 110/38 98.9 ??F (37.2 ??C) Temporal 50 16 95 % 1.803 m (5' 11) 100.7 kg (222 lb) Physical Exam GENERAL: well developed, pleasant HEAD: atraumatic EYES: pupils reactive, extraocular muscles intact, conjunctivae normal ENT: mucus membranes moist NECK: trachea midline, normal range of motion RESPIRATORY: no tachypnea, breath sounds clear to auscultation CVS: normal S1/S2, no murmurs, intact distal pulses, well healing wound mid sternum, trace peripheral edema ABDOMEN: soft, nontender, nondistention MUSCULOSKELETAL: no deformities SKIN: warm and dry, no acute rashes or ulceration NEURO: GCS 15, cranial nerves intact, alert and oriented x3 PSYCH: Mood/affect normal Emergency Department Course Imaging: XR Chest Port 1 View Final Result IMPRESSION: New airspace consolidation left lower lobe obscuring left hemidiaphragm consistent with left lower lobe pneumonia. Left upper lobe and right lung remain clear. Heart size normal. Previous CABG. Laboratory: Labs Ordered and Resulted from Time of ED Arrival Up to the Time of Departure from the ED BASIC METABOLIC PANEL - Abnormal; Notable for the following components: Result Value Chloride 110 (*) Urea Nitrogen 54 (*) Creatinine 1.67 (*) Glucose 131 (*) GFR Estimate 41 (*) All other components within normal limits TROPONIN I - Abnormal; Notable for the following components: Troponin I 0.066 (*) All other components within normal limits CBC WITH PLATELETS AND DIFFERENTIAL - Abnormal; Notable for the following components: WBC Count 11.8 (*) RBC Count 2.76 (*) Hemoglobin 8.1 (*) Hematocrit 26.0 (*) MCHC 31.2 (*) Absolute Neutrophils 8.5 (*) Absolute Eosinophils 0.8 (*) Absolute Immature Granulocytes 0.2 (*) All other components within normal limits ROUTINE UA WITH MICROSCOPIC REFLEX TO CULTURE - Abnormal; Notable for the following components: Hyaline Casts Urine 3 (*) All other components within normal limits Narrative: Urine Culture not indicated EXTRA BLUE TOP TUBE EXTRA RED TOP TUBE EXTRA BLOOD BANK PURPLE TOP TUBE PERIPHERAL IV CATHETER CBC WITH PLATELETS & DIFFERENTIAL Narrative: The following orders were created for panel order CBC with Platelets & Differential. Procedure Abnormality Status --------- ------ CBC with platelets and d...[[id number]] Abnormal Final result Please view results for these tests on the individual orders. EXTRA TUBE Narrative: The following orders were created for panel order [place] Draw. Procedure Abnormality Status --------- ------ Extra Blue Top Tube[[id number]] Final result Extra Red Top Tube[[id number]] Final result Please view results for these tests on the individual orders. EXTRA TUBE Narrative: The following orders were created for panel order [place] Draw. Procedure Abnormality Status --------- ------ Extra Blood Bank Purple ...[[id number]] Final result Please view results for these tests on the individual orders. Procedures: na Emergency Department Course: Reviewed: I reviewed nursing notes, vitals and past history Interventions: Medications - No data to display Disposition: The patient was discharged to home. Impression & Plan [facility] Diagnoses: Medical Decision Making: Patient presents with 3 episodes of weakness in his legs and recently had CABG. He has had several additions and medication changes. He denies any infectious symptoms of cough, shortness of breath, abdominal symptoms or urinary symptoms. His labs all look reassuring and stable. His hemoglobin is low but stable. His troponin is slightly elevated but to be expected with recent cardiac surgery. His creatinine is slightly elevated but has been in this range in the past as well. He has normal vital signs. I checked his orthostatics and they were normal. He notes when he was on a bigger dose of Lisinopril he had symptoms of weakness and lightheadedness and had to go down on his dosing of medications. He has had several big changes in medications. His chest xray wasn't resulted at time of discharge and I had made several calls to request a reading. I read the chest xray and saw the changes in the left lung base and felt they were likely from recent surgery and mild vascular congestion with his mild peripherial edema. I did not elect to treat him for pneumonia given lack of symptoms (cough, fever, shortness of breath) and felt his symptoms were more positional and likely related to recent surgery andrecent medication additions and changes. Will have him decrease his Lisinopril from 40 mg daily to 20 mg daily due to his intolerance to this in the past and also slight elevation of his creatinine. Will add short course of lasix for 3 days. He is instructed to follow up with his primary MD and cardiac team and watch for new or different symptoms and return to the ED if worse. Addendum: I called and spoke to Nikita and his at 9:00 am, 04/28/21 and discussed the reading of his chest xray. He notes he has had some occasional cough and felt some difficulty breathing last night. I discussed starting antibiotics, monitoring his breathing and pulse ox, and follow up this week as scheduled with his primary MD and if worse to return to the ED. He noted in the hospital he had some difficulties at night and his has been suggesting a sleep study. He thanked me for the call. Critical Care time: none Covid-19 Nikita Anderson was evaluated during a global COVID-19 pandemic, which necessitated consideration that the patient might be at risk for infection with the SARS-CoV-2 virus that causes COVID-19. Applicable protocols for evaluation were followed during the patient's care. COVID-19 was considered as part of the patient's evaluation. The plan for testing is: a test was obtained during this visit. Diagnosis: ICD-10-CM 1. Generalized muscle weakness M62.81 2. Adverse effect of drug, initial encounter T50.905A Discharge Medications: Discharge Medication List as of 04/27/2021 5:54 PM START taking these medications Details furosemide (LASIX) 20 MG tablet Take 1 tablet (20 mg) by mouth daily for 3 days, Disp-3 tablet, R-0,E-Prescribe Scribe Disclosure: Jordan Jerry MD, am serving as a scribe at 9:44 PM on 04/27/2021 to document services personally performed by No att. providers found based on my observations and the provider's statements to me. Jordan Merida MD 04/27/210 Jordan Merida MD 04/28/21 0980 documented in this encounter Plan of Treatment Upcoming Encounters Date Type Specialty Care Team Description 05/15/2022 Hospital Encounter Surgery Singh Torres MD [facility] [address] [place] [address] (Wo rk) 05/15/2022 Surgery Surgery Neo Torres MD BLEPHAROPLASTY BILATERAL [facility] PTOSIS REPAIR BILATERAL [address] [place] [address] (Wo rk) 06/25/2022 Ancillary Procedure Cardiology Kirk Silver MD [address] [place] [id number] (Wo rk) Scheduled Procedures Name Priority Associated Diagnoses Date/Time REPAIR, PTOSIS, BILATERAL, Dermatochalas is 05/15/2022 7:30 AM CDT WITH BILATERAL BLEPHAROPLASTY 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 REPAIR, ECTROPION, EYE, Dermatochalasis 05/15/2022 7:30 AM CDT BILATERAL 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 documented as of this encounter Procedures Procedure Name Priority Date/Time Associated Comments Diagnosis XR CHEST PORT 1 VIEW STAT 04/27/2021 3:18 PM R esults for this CDT procedure are i n the results section. ROUTINE UA WITH STAT 04/27/2021 3:16 PM Result s for this MICROSCOPIC REFLEX TO CDT proced ure are in CULTURE the results section. EXTRA TUBE STAT 04/27/2021 1:51 PM Results f or this CDT procedure are i n the results section. EXTRA BLOOD BANK STAT 04/27/2021 1:51 PM Resul ts for this PURPLE TOP TUBE CDT procedure ar e in the results section. EXTRA TUBE STAT 04/27/2021 1:48 PM Results f or this CDT procedure are i n the results section. EXTRA RED TOP TUBE STAT 04/27/2021 1:48 PM Res ults for this CDT procedure are i n the results section. EXTRA BLUE TOP TUBE STAT 04/27/2021 1:48 PM Re sults for this CDT procedure are i n the results section. CBC WITH PLATELETS STAT 04/27/2021 1:48 PM Res ults for this AND DIFFERENTIAL CDT procedure a re in the results section. CBC WITH PLATELETS & STAT 04/27/2021 1:48 PM R esults for this DIFFERENTIAL CDT procedure are i n the results section. TROPONIN I STAT 04/27/2021 1:48 PM Results f or this CDT procedure are i n the results section. BASIC METABOLIC PANEL STAT 04/27/2021 1:48 PM Results for this CDT procedure are i n the results section. documented in this encounter Results XR Chest Port 1 View (04/27/2021 3:18 PM CDT) Anatomical Region Laterality Modality Chest Digital Radiography Specimen (Source) Anatomical Collection Method Collection Time Re ceived Time Location / / Volume Laterality 04/27/2021 3:10 PM CDT Impressions 04/27/2021 6:14 PM CDT IMPRESSION: New airspace consolidation left lower lobe obscuring left hemidiaphragm consistent with left lower lobe pneumonia. Left upper lobe and right lung remain cl ear. Heart size normal. Previous CABG. Narrative 04/27/2021 6:14 PM CDT EXAM: XR CHEST PORT 1 VIEW LOCATION: [facility] DATE/TIME: 04/27/2021 3:10 PM INDICATION: recent surgery, weakness, ev al pneumonia, chf, etc COMPARISON: 04/24/2021 Procedure Note Geremias Martini MD - 04/27/2021Formatt ing of this note might be different from the original. EXAM: XR CHEST PORT 1 VIEW LOCATION: [facility] DATE/TIME: 04/27/2021 3:10 PM INDICATION: recent surgery, weakness, ev al pneumonia, chf, etc COMPARISON: 04/24/2021 IMPRESSION: New airspace consolidation l eft lower lobe obscuring left hemidiaphragm consistent with left lower lobe pneumonia. Left upper lobe and right lung remain cl ear. Heart size normal. Previous CABG. Jordan Merida MD IMG DIAGNOSTIC IMAGING ORDER [place] (ABNORMAL) UA with Microscopic reflex to Culture (04/27/2021 3:16 PM CDT) [facility] Method Time Signature Color Urine Yellow Colorless, 04/27/2021 LABORATORY Straw, Light 3:31 PM CDT Yellow, Yellow Appearance Urine Clear Clear 04/27/2021 LABORATOR Y 3:31 PM CDT Glucose Urine Negative Negative 04/27/2021 LABORATORY mg/dL 3:31 PM CDT Bilirubin Urine Negative Negative 04/27/2021 LABORATORY 3:31 PM CDT Ketones Urine Negative Negative 04/27/2021 LABORATORY mg/dL 3:31 PM CDT Specific [place] 1.017 1.003 - 04/27/2021 LABORATOR Y Urine 1.035 3:31 PM CDT Blood Urine Negative Negative 04/27/2021 LABORATORY 3:31 PM CDT pH Urine 5.0 5.0 - 7.0 04/27/2021 LABORATORY 3:31 PM CDT Protein Albumin Negative Negative 04/27/2021 LABORATORY Urine mg/dL 3:31 PM CDT Urobilinogen Normal Normal, 2.0 04/27/2021 LABORATORY Urine mg/dL 3:31 PM CDT Nitrite Urine Negative Negative 04/27/2021 LABORATORY 3:31 PM CDT Leukocyte Negative Negative 04/27/2021 LABORATORY Esterase Urine 3:31 PM CDT RBC Urine 1 <=2 /HPF 04/27/2021 LABORATORY 3:31 PM CDT WBC Urine <1 <=5 /HPF 04/27/2021 LABORATORY 3:31 PM CDT Hyaline Casts 3 (H) <=2 /LPF 04/27/2021 LABORATORY Urine 3:31 PM CDT Specimen Anatomical Collection Method Collection Time Receive d Time (Source) Location / / Volume Laterality Urine URINE SPECIMEN Non-blood 04/27/2021 3:16 PM 021 3:19 OBTAINED BY CLEAN Collection / CDT PM CDT CATCH PROCEDURE / Unknown Unknown Narrative LABORATORY - 04/27/2021 3:31 PM CDT Urine Culture not indicated Jordan Merida MD LAB - URINE ORDERABLES Performing Organization Address City/State/ZIP Code Phon e Number LABORATORY [facility] [facility] [place] [address] Care Lab [address] 1st floor, Room 20B Extra Blood Bank Purple Top Tube (04/27/2021 1:51 PM CDT) athologist Signature Hold Specimen [facility] 04/27/2021 BLOOD BANK 3:16 PM CDT Specimen Anatomical Collection Method / Collection Time Recei shyla Time (Source) Location / Volume Laterality Blood STRUCTURE OF LEFT Venipuncture / 04/27/2021 1:51 04/27 2:02 UPPER LIMB / Unknown PM CDT PM CDT Unknown Jordan Merida MD LAB - BLOOD ORDERABLES Performing Organization Address City/State/ZIP Code Phon e Number BLOOD BANK [address] [place] [address] Extra Red Top Tube (04/27/2021 1:48 PM CDT) athologist Signature Hold Specimen [facility] 04/27/2021 LABORATORY 3:16 PM CDT Specimen Anatomical Collection Method / Collection Time Recei shyla Time (Source) Location / Volume Laterality Blood STRUCTURE OF LEFT Venipuncture / 04/27/2021 1:48 04/27 2:02 UPPER LIMB / Unknown PM CDT PM CDT Unknown Jordan Merida MD LAB - BLOOD ORDERABLES Performing Organization Address City/State/ZIP Code Phon e Number LABORATORY [facility] [address] Care Lab [address] 1st floor, Room 20B Extra Blue Top Tube (04/27/2021 1:48 PM CDT) athologist Signature Hold Specimen [facility] 04/27/2021 LABORATORY 3:16 PM CDT Specimen Anatomical Collection Method / Collection Time Recei shyla Time (Source) Location / Volume Laterality Blood STRUCTURE OF LEFT Venipuncture / 04/27/2021 1:48 04/27 2:02 UPPER LIMB / Unknown PM CDT PM CDT Unknown Jordan Merida MD LAB - BLOOD ORDERABLES Performing Organization Address City/State/ZIP Code Phon e Number LABORATORY [facility] [place] [address] Care Lab [address] 1st floor, Room 20B (ABNORMAL) CBC with platelets and differential (04/27/2021 1:48 PM CDT) [facility] Method Time Signature WBC Count 11.8 (H) 4.0 - 04/27/2021 LABORATORY 11.0 2:06 PM CDT 10e3/uL RBC Count 2.76 (L) 4.40 - 04/27/2021 LABORATORY 5.90 2:06 PM CDT 10e6/uL Hemoglobin 8.1 (L) 13.3 - 04/27/2021 LABORATORY 17.7 g/dL 2:06 PM CDT Hematocrit 26.0 (L) 40.0 - 04/27/2021 LABORATORY 53.0 % 2:06 PM CDT MCV 94 78 - 100 04/27/2021 LABORATORY fL 2:06 PM CDT MCH 29.3 26.5 - 04/27/2021 LABORATORY 33.0 pg 2:06 PM CDT MCHC 31.2 (L) 31.5 - 04/27/2021 LABORATORY 36.5 g/dL 2:06 PM CDT RDW 13.8 10.0 - 04/27/2021 LABORATORY 15.0 % 2:06 PM CDT Platelet Count 252 150 - 450 04/27/2021 LABORATORY 10e3/uL 2:06 PM CDT % Neutrophils 72 % 04/27/2021 LABORATORY 2:06 PM CDT % Lymphocytes 11 % 04/27/2021 LABORATORY 2:06 PM CDT % Monocytes 9 % 04/27/2021 LABORATORY 2:06 PM CDT % Eosinophils 7 % 04/27/2021 LABORATORY 2:06 PM CDT % Basophils 0 % 04/27/2021 LABORATORY 2:06 PM CDT % Immature 1 % 04/27/2021 LABORATORY Granulocytes 2:06 PM CDT NRBCs per 100 0 <1 /100 04/27/2021 LABORATORY WBC 2:06 PM CDT Absolute 8.5 (H) 1.6 - 8.3 04/27/2021 LABORATORY Neutrophils 10e3/uL 2:06 PM CDT Absolute 1.3 0.8 - 5.3 04/27/2021 LABORATORY Lymphocytes 10e3/uL 2:06 PM CDT Absolute 1.0 0.0 - 1.3 04/27/2021 LABORATORY Monocytes 10e3/uL 2:06 PM CDT Absolute 0.8 (H) 0.0 - 0.7 04/27/2021 LABORATORY Eosinophils 10e3/uL 2:06 PM CDT Absolute 0.1 0.0 - 0.2 04/27/2021 LABORATORY Basophils 10e3/uL 2:06 PM CDT Absolute 0.2 (H) <=0.0 04/27/2021 LABORATORY Immature 10e3/uL 2:06 PM CDT Granulocytes Absolute NRBCs 0.0 10e3/uL 04/27/2021 LABORATORY 2:06 PM CDT Specimen Anatomical Collection Method / Collection Time Recei shyla Time (Source) Location / Volume Laterality Blood STRUCTURE OF LEFT Venipuncture / 04/27/2021 1:48 04/27 2:02 UPPER LIMB / Unknown PM CDT PM CDT Unknown Jordan Merida MD LAB - BLOOD ORDERABLES Performing Organization Address City/[facility]/ZIP Code Phon e Number LABORATORY [facility] [place] [address] Care Lab [address] 1st floor, Room 20B (ABNORMAL) Troponin I (04/27/2021 1:48 PM CDT) P athologist Signature Troponin I 0.066 (H) 0.000 - 04/27/2021 LABORATORY 0.045 ug/L 2:26 PM CDT Comment: The 99th percentile for upper r eference range is 0.045ug/L. Troponin values in the range of 0.045 - 0.120 ug/L may b e associated with risks of adverse clinical events. Specimen Anatomical Collection Method / Collection Time Recei shyla Time (Source) Location / Volume Laterality Blood STRUCTURE OF LEFT Venipuncture / 04/27/2021 1:48 04/27 2:02 UPPER LIMB / Unknown PM CDT PM CDT Unknown Jordan Merida MD LAB - BLOOD ORDERABLES Performing Organization Address City/State/ZIP Code Phon e Number LABORATORY [facility] [place] [address] Care Lab [address] 1st floor, Room 20B (ABNORMAL) Basic metabolic panel (04/27/2021 1:48 PM CDT) Patholo gist Method Time Signature Sodium 142 133 - 144 04/27/2021 LABORATORY mmol/L 2:22 PM CDT Potassium 4.5 3.4 - 5.3 04/27/2021 LABORATORY mmol/L 2:22 PM CDT Chloride 110 (H) 94 - 109 04/27/2021 LABORATORY mmol/L 2:22 PM CDT Carbon Dioxide 26 20 - 32 04/27/2021 LABORATORY (CO2) mmol/L 2:22 PM CDT Anion Gap 6 3 - 14 04/27/2021 LABORATORY mmol/L 2:22 PM CDT Urea Nitrogen 54 (H) 7 - 30 04/27/2021 LABORATORY mg/dL 2:22 PM CDT Creatinine 1.67 (H) 0.66 - 04/27/2021 LABORATORY 1.25 mg/dL 2:22 PM CDT Calcium 8.5 8.5 - 10.1 04/27/2021 LABORATORY mg/dL 2:22 PM CDT Glucose 131 (H) 70 - 99 04/27/2021 LABORATORY mg/dL 2:22 PM CDT GFR Estimate 41 (L) >60 04/27/2021 LABORATORY mL/min/1.7 2:22 PM CDT 3m2 Comment: As of February 17, [...] Laterality Blood STRUCTURE OF LEFT Venipuncture / 04/27/2021 1:48 04/27 2:02 UPPER LIMB / Unknown PM CDT PM CDT Unknown Jordan Merida MD LAB - BLOOD ORDERABLES Performing Organization Address City/State/ZIP Code [place] [address] [facility] Lab [address] 1[address] floor, Room 20B documented in this encounter Visit Diagnoses Diagnosis Generalized muscle weakness Muscle weakness (generalized) Adverse effect of drug, initial encounte r 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 documented in this encounter Care Teams Hand Sander Relationship Specialty Start Date End Date Anatoliy Jackson, PCP - General 05/14/12 Heath More PCP - Internal Medicine INTERNAL MEDICINE - 01/06/14 MD Andreas ENDOCRINOLOGY, ENDOCRINE CLINIC DIABETES & METABOLISM OF [facility] [address] [facility] [address] [phone] Peter Gipson PCP - Urology 04/02/15 MD Jordan [facility] [address] [facility] [address] [place], [place] [id number] Peter Mcmullen Assigned Musculoskeletal 06/01/20 MD Mahendra Provider [facility] [facility] [address] [place], [place] [address] Hallie Maldonado, Assigned Heart and 02/22/2105/18 WELFARE INTERVIEWER SLEEVE SEPARATOR Vascular Provider [address] [id number] documented as of this encounter
--- OUTSIDE RECORDS SUMMARY | 2022-05-02 12:29 | XMS_ITS | Encounter Summary ---
:1950 Author Organization [place] Address [address] [place] [address] Care Team Providers Name Role Phone Anatoliy Jackson MD Primary Care Provider Heath More MD Unavailable Peter Gipson MD Unavailable Peter Mcmullen MD Unavailable Hallie Maldonado APRN PAPER GOODS MACHINE OPERATOR Unavailable [phone] Encounter Details Date Type Department Care Team Description 04/27/2021 Travel Social History Tobacco Use Types Packs/Day [...] 05/15/2022 Hospital Encounter Surgery Singh Torres MD [facility] [address] [place] [address] [address] (Wo rk) 05/15/2022 Surgery Surgery Neo Torres MD BLEPHAROPLASTY BILATERAL [place] [facility], [facility] PTOSIS REPAIR BILATERAL [address] [place] [place] [address] [place] [place] [address] (Wo rk) 06/25/2022 Ancillary Procedure Cardiology Kirk Silver MD [address] [place] [address] (Wo rk) Scheduled Procedures Name Priority Associated [...] on filedocumented in this encounter Care Teams Grab Hooker Relationship Specialty Start Date End Date Anatoliy Jackson PCP - General 05/14/12 Heath More PCP - Internal Medicine INTERNAL MEDICINE - 01/06/14 MD Andreas ENDOCRINOLOGY, ENDOCRINE CLINIC DIABETES & METABOLISM OF [facility] [address] [place] [place] [address] Peter Gipson PCP - Urology 04/02/15 MD Jordan [facility] [address] [place] [address] [address] [place] [address] Peter Mcmullen Assigned Musculoskeletal 06/01/20 MD Mahendra Provider [address] [place] [address] Hallie Maldonado, Assigned Heart and 02/22/2105/18 CORRESPONDENCE CLERK PAPER GOODS MACHINE OPERATOR Vascular Provider [address] [place] [address] documented as of this encounter
--- OUTSIDE RECORDS SUMMARY | 2022-05-02 12:29 | XMS_ITS | Encounter Summary ---
:1950 Author Organization [place] Address [address] [facility] [place] [address] Care Team Providers Name Role Phone Anatoliy Jackson MD Primary Care Provider Heath More MD Unavailable Peter Gipson MD Unavailable Peter Mcmullen MD Unavailable Hallie Maldonado APRN COMPOSITION TEACHER Unavailable Reason for Referral Rehab Therapy Cardiac Therapy (Routine) - Closed Specialty Diagnoses / Procedures Referred By Contact Refer red To Contact CARDIAC REHAB Diagnoses Coronary artery disease involving lower brule coronary artery of lower [place] heart without angina pectoris [address] [address] Phone: Referral ID Status Reason Start Date Expiration Date Visits Requ ested Visits Authorized [id number] Closed 05/01/2021 08/09/2021 36 36 Reason for Visit Rehab Therapy Cardiac Therapy (Routine) - Closed Specialty Diagnoses / Procedures Referred By Contact Refer red To Contact CARDIAC REHAB Diagnoses Coronary artery disease involving lower brule coronary artery of [place] heart without angina pectoris [address] [address] Phone: Referral ID Status Reason Start Date Expiration Date Visits Requ ested Visits Authorized [id number] Closed 05/01/2021 08/09/2021 36 36 Encounter Details Date Type Department Care Team Description 05/02/2021 [facility] Lucio Black, Coronary artery Encounter Cardiac and Pulmonary MD disease involving Rehabilitation [address] [facility] [address] artery of [place] [address] [place], [place] heart without [address] [address] angina pectoris [place], [place] [phone] [address] (Work) [phone] Social History Tobacco Use Types Packs/Day Years [...] Take 1 tablet (25 mg) 20 tablet 0 05/01/2021 05/07/2021 25 MG tabletIndications: by mouth daily as [...] mouth every Coronary artery disease evening involving lower brule coronary artery of lower [place] heart without angina pectoris, Hyperlipidemia LDL goal [...] MD [facility] [address] [place] [address] [address] (Wo rk) 05/15/2022 Surgery Surgery Neo Torres MD BLEPHAROPLASTY BILATERAL [facility], INTERNAL & SURGE[facility] [place] PTOSIS REPAIR BILATERAL [address] [place] [address] [address] (Wo rk) 06/25/2022 Ancillary Procedure Cardiology Kirk Silver MD [address] [place] [address] [...] Type Priority Associated Diagnoses Order S chedule CARDIAC REHAB Referral Routine Coronary artery disease 1 O ccurrences starting REFERRAL involving lower brule 05/02/2021 until coronary artery of 1 lower [place] heart without angina pectoris documented as of this encounter Visit Diagnoses Diagnosis Coronary artery disease involving lower brule coronary artery of lower [place] heart without angina pectoris 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 [address] [place] [address] [address] [place] [address] Peter Mcmullen Assigned Musculoskeletal 06/01/20 MD Mahendra Provider [address] [place], [place] [address] Hallie Maldonado, Assigned Heart and 02/22/2105/18 AVIONICS ELECTRONICS TECHNICIAN COMPOSITION TEACHER Vascular Provider [address] [address] documented as of this encounter
--- OUTSIDE RECORDS SUMMARY | 2022-05-02 12:29 | XMS_ITS | Encounter Summary ---
:1950 Author Organization [place] Address [address] [facility] [place] [address] Care Team Providers Name Role Phone Anatoliy Jackson MD Primary Care Provider Heath More MD Unavailable Peter Gipson MD Unavailable Peter Mcmullen MD Unavailable Hallie Maldonado APRN SOLICITING FREIGHT AGENT Unavailable [phone] Giuliana Gomez APRN SOLICITING FREIGHT AGENT Unavailable Fidencio Solis MD Unavailable Giuliana Gomez APRN SOLICITING FREIGHT AGENT Unavailable [phone] Giuliana Gomez APRN SOLICITING FREIGHT AGENT Unavailable [phone] Fidencio Solis MD Unavailable Encounter Details Date Type Department Care Team Description 04/27/2021 Documentation Only INTERFACED REPORT Unknown, Provider Social History Tobacco Use Types Packs/Day Years [...] been in contact with No / Unsure 04/28/2021 3:08 PM CDT someone who was confirmed or 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 documented as of this encounter Plan of Treatment Upcoming Encounters Date Type Specialty Care Team Description 05/15/2022 Hospital Encounter Surgery Singh Torres MD [facility] [address] [place] [address] (Wo rk) 05/15/2022 Surgery Surgery Neo Torres MD BLEPHAROPLASTY BILATERAL [place] [facility]S, INTERNAL & SURGEONS [facility] PTOSIS REPAIR BILATERAL [address] [place] [address] [place] [address] (Wo rk) 06/25/2022 Ancillary Procedure Cardiology Kirk Silver MD [address] [place] [address] (Wo rk) Scheduled Procedures Name Priority Associated [...] on filedocumented in this encounter Care Teams Kick Press Setter Relationship Specialty Start Date End Date Anatoliy Jackson, PCP - General 05/14/12 Heath More PCP - Internal Medicine INTERNAL MEDICINE - 01/06/14 MD Andreas ENDOCRINOLOGY, DIABETES ENDOCRINE CLINIC & METABOLISM OF [facility] [address] [place] [place] [phone] Peter Gipson PCP - Urology 04/02/15 MD Jordan [facility] [address] [facility] [place] [address] [place] [address] Peter Mcmullen Assigned Musculoskeletal 06/01/20 MD Mahendra Provider [address] [place], [place] [address] Hallie Maldonado, Assigned Heart and 02/22/2105/18 SURVEY COORDINATOR SOLICITING FREIGHT AGENT Vascular Provider [address] [place], [place] [address] Giuliana Gomez Assigned Heart and 05/19/2106/15/21 A, SURVEY COORDINATOR SOLICITING FREIGHT AGENT Vascular Provider [address] [place], [place] [address] Fidencio Solis MD Assigned Heart and 06/16/21 06/29/[address], Vascular Provider [place] [place] [address] Giuliana Gomez Assigned Heart and 06/30/21 A, SURVEY COORDINATOR SOLICITING FREIGHT AGENT Vascular Provider [address] [place] [address] Giuliana Gomez Nurse Practitioner Cardiovascular Disease 2 A, SURVEY COORDINATOR SOLICITING FREIGHT AGENT [address] [place] [address] Fidencio Solis MD MD Cardiovascular Disease 08/21/[address], [address] [place] [address] documented as of this encounter
--- OUTSIDE RECORDS SUMMARY | 2022-05-02 12:29 | XMS_ITS | Encounter Summary ---
:1950 Author Organization [facility] Address [address] [facility] [place] [address] Care Team Providers Name Role Phone Anatoliy Ortiz MD Primary Care Provider Heath More MD Unavailable Peter Gipson MD Unavailable Peter Mcmullen MD Unavailable Hallie Maldonado APRN CEMENT TRUCK LOADER Unavailable [phone] Reason for Referral CV Testing (Routine) - Closed Specialty Diagnoses / Procedures Referred By Contact Refer red To Contact Diagnoses S/P CABG (coronary artery bypass graft) Brenda Willoughby PA-C Procedures Holter Monitor 48 hour Adult Pediatric [facility] AMB BP MONITORING W/SW >=24 HR, RECORD/SCAN/INTRP/RPT [facility] HOLTER RECORDING 24 HRS [facility] HOLTER SCAN 24 HRS GA HOLTER RECORDING 24 HRS GA HOLTER SCAN 24 HRS [facility] AMB BP MONITORING W/SW >= 24 HR, RECORD/SCAN/INTRP/RPT HC HOLTER RECORDING 24 HRS HC HOLTER SCAN 24 HRS, [place] [address] Referral ID Status Reason Start Date Expiration Date Visits Requ ested Visits Authorized [id number] Closed 05/01/2021 05/01/2022 1 1 are Coordination (Routine) - Closed Specialty Diagnoses / Procedures Referred By Contact Refer red To Contact Diagnoses S/P CABG (coronary artery bypass graft) Weakness CAD (coronary artery disease) [facility] [address] [facility] [address] [id number] Referral ID Status Reason Start Date Expiration Date Visits Requ ested Visits Authorized [id number] Closed 04/30/2021 04/30/2022 1 1 ed Therapy Management (Routine) Specialty Diagnoses / Procedures Referred By Contact Refer red To Contact [facility] [address] [id number] Referral ID Status Reason Start Date Expiration Date Visits Requ ested Visits Authorized Reason for Visit Reason Comments Fall Auth/Cert Specialty Diagnoses / Procedures Referred By Contact Refer red To Contact Med Surg Diagnoses Weakness of both legs Near syncope Anemia, unspecified type Weakness Weakness of both legs Near syncope Anemia, unspecified type Weakness [address] [facility] [address] [phone] Phone: Referral ID Status Reason Start Date Expiration Date Visits Requ ested Visits Authorized [id number] 1 1 Encounter Details Date Type Department Care Team Description 04/28/2021 - [facility] Edmundo Granda MD [facility] [place] [address] [place] [address] S/P CABG (coronary artery bypass graft) (Primary Dx); 05/01/2021 Encounter [place] [id number] Faisal Paulino MD [address] [id number] Weakness of both legs; Specialty Unit Near syncope; [address] Anemia, unspecified type; [address] [place] Weakness; [id number] CAD (coronary artery disease ); [phone] Type 2 diabetes mellitus with other circulatory complication, with long-term current use of insulin (H) Social History Tobacco Use Types Packs/Day Years [...] Sign Reading Time Taken Comments Blood Pressure 160/58 05/01/2021 3:17 PM CDT Pulse 62 05/01/2021 3:17 PM CDT Temperature 36.7 ??C (98 ??F) 05/01/2021 12:00 AM CDT Respiratory Rate 18 05/01/2021 3:17 PM CDT Oxygen Saturation 91% 05/01/2021 3:17 PM CDT Inhaled Oxygen Concentration - - Weight 104.6 kg (230 lb 9.6 oz) 04/30/2021 4:24 AM CDT Height 180.3 cm (5' 11) 04/28/2021 3:11 PM CDT Body Mass Index 32.16 04/28/2021 3:11 PM CDT documented in this encounter Discharge Summaries Yasir Altamirano, - 05/01/2021 1:29 PM CDT [facility] Hospitalist Discharge Summary Date of Admission: 04/28/2021 Date of Discharge: 05/01/2021 Discharging Provider: Yasir Altamirano, DO Discharge Diagnoses Generalized weakness likely a combination of toxic encephalopathy in the setting of acute kidney injury and possible pneumonia CKD III History of CABG on 04/19/2021 Pleural effusion status post thoracentesis on 04/29 HTN Follow-ups Needed After Discharge Follow-up Appointments Follow-up and recommended labs and tests *Follow up primary care provider in 7-10 days after discharge in order to review your medication, vital signs, obtain any necessary lab work your doctor may want, and to update them on your hospitalization and medical issues. *Follow up with Brenda/Shavon Snell with Dr Gardner, heart surgeon, at [facility] [address] on 05/08/21 at 2:30 PM. If any questions or concerns call [phone]. You will see us once at this visit and then if everything is going well you will not need to see us again. You will follow residential with your gold leaf layer. *Follow up with Karoline Guerrero PA-C, with cardiology on 05/08/21 at 10:30 to discuss blood pressures/medications. This is who you will follow with residential about your heart issues. [phone]. Unresulted Labs Ordered in the Past 30 Days of this Admission Date and Time Order Name Status Description 04/30/2021 12:02 AM Catecholamines Fractionated In process 04/19/2021 5:55 AM PREPARE RED BLOOD CELLS (UNIT) Preliminary 04/19/2021 5:55 AM PREPARE RED BLOOD CELLS (UNIT) Preliminary These results will be followed up by none Discharge Disposition Discharged to home Condition at discharge: Stable Hospital Course Generalized weakness likely a combination of toxic encephalopathy in the setting of acute kidney injury and possible orthostasis CKD III Discharged from hospital on 04/25 with feeling of weakness in the knees and multiple falls for 2 daysafter admission Orthostatic negative CT head negative Found to have an acute kidney injury Renal function improving with IVF CT with new moderate left and right sided pleural effusions with left Most likely his falls are either related to lower heart rates from recently titrated medications or related to weakness from gabapentin/pain medications with concomitant GENO With improvement of his blood pressure regimen and his renal function his strength markedly improved Plan - stop lasix and lisinopril - stop antibiotics, no indication of active pna with normal procalcitonin - PT/OT recommends home - dose reduction of his gabapentin has been completed, to 300 mg bid - cardiothoracic surgery consulted and appreciate their care. Follow-up with them next week - blood pressure checks while at home - HTN management as below - holter monitor on discharge ?? History of CABG on 04/19/2021 Pleural effusion status post thoracentesis on 04/29 Removed 1 liter of sanguinous output, likely postoperative Plan - [facility] consulted, appreciated ? HTN Plan - continue amlodipine and clonidine - stop the lasix and lisinopril given the acute kidney injury - hydralazine increased to 100 mg tid. Added on prn for > 170 - off of BB due to bradycardia per [facility] - added imdur - monitor closely at home DM1, insulin dependent. Difficult control during CABG admission and discharged on increased lantus dose, but he reports on return home and his home regimen he was under good control As such, he does not trust the hospital glucometer Patient declines using hospital meter and demands to use his own CGM which will inform him what to take in terms of short acting Asked pharmacy to reconcile his meter settings with our orders Based on his meter readings during the last 24 hours his blood sugars has ranged from 83-160 with nolows At this point, will attempt to accommodate his request to use his home meter as long as he shares his readings with the nursing to document in the chart and obtain short acting insulin from our pharmacy He is a reliable patient Plan - reduce lantus 45 units daily, - continue1:5 carb counting, and his home sliding scale - follow-up as outpatient ? Acute blood loss anemia Plan - stable - iron studies normal ?? HLD - on crestor Consultations This Hospital Stay CARE MANAGEMENT / SOCIAL WORK IP CONSULT PHYSICAL THERAPY ADULT IP CONSULT OCCUPATIONAL THERAPY ADULT IP CONSULT CARDIOVASCULAR SURGERY IP CONSULT CARDIAC REHAB IP CONSULT Code Status Full Code Time Spent on this Encounter I, Yasir Altamirano DO, personally saw the patient today and spent greater than 30 minutes discharging this patient. Yasir Altamirano DO [place] [address] [facility] [address] [place] [address] Physical Exam Vital Signs: Temp: 98 ??F (36.7 ??C) Temp src: Oral BP: (!) 140/65 Pulse: 64 Resp: 16 SpO2: 92 % O2 Device: None (Room air) Weight: 230 lbs 9.62 oz Constitutional:??Awake, alert, cooperative, no apparent distress. Eyes:??Conjunctiva and pupils examined and normal. HEENT:??Moist mucous membranes, normal dentition. Respiratory:??diminished air entry??bilaterally, no crackles or wheezing. Cardiovascular:??bradycardic but regular rhythm, normal S1 and S2, and no murmur noted. GI:??Soft, non-distended, non-tender, normal bowel sounds. Lymph/Hematologic:??No anterior cervical or supraclavicular adenopathy. Skin:??No rashes, no cyanosis, 2+??edema. Musculoskeletal:??No joint swelling, erythema or tenderness. Neurologic:??Cranial nerves 2-12 intact, normal strength and sensation. Psychiatric:??Alert, oriented to person, place and time, no obvious anxiety or depression. ?? Primary Care Physician Anatoliy Ortiz Discharge Orders Medication Therapy Management Referral Care Coordination Referral Follow-up and recommended labs and tests *Follow up primary care provider in 7-10 days after discharge in order to review your medication, vital signs, obtain any necessary lab work your doctor may want, and to update them on your hospitalization and medical issues. *Follow up with Brenda/Shavon Snell [facility] [address] on 05/08/21 at 2:30 PM. If any questions or concerns call [phone]. You will see us once at this visit and then if everything is going well you will not need to see us again.You will follow truck terminal manager with your gold leaf layer. *Follow up with Karoline Guerrero PA-C, with cardiology on 05/08/21 at 10:30 to discuss blood pressures/medications. This is who you will follow with truck terminal manager about your heart issues. [phone]. Holter Monitor 48 hour Adult Pediatric Significant Results and Procedures Most Recent 3 CBC's:Recent Labs Lab Test 04/30/21 0733 04/29/21 0708 04/28/21 1550 WBC 11.6* 10.1 11.0 HGB 8.2* 7.7* 7.8* MCV 95 94 94 PLT 284 274 262 Most Recent 3 BMP's:Recent Labs Lab Test 05/01/21 0735 04/30/21 0733 04/29/21 0708 NA 143 144 144 POTASSIUM 4.4 4.6 4.7 CHLORIDE 114* 115* 114* CO2 24 24 24 BUN 28 32* 47* CR 1.21 1.28* 1.64* ANIONGAP 5 5 6 RICHIE 8.5 8.2* 8.2* GLC 67* 99 88 Most Recent 2 LFT's:Recent Labs Lab Test 04/29/21 0708 04/28/21 1550 AST 22 22 ALT 30 34 ALKPHOS 60 64 BILITOTAL 0.5 0.3 , Results for orders placed or performed during the hospital encounter of 04/28/21 CT Chest Pulmonary Embolism w Contrast Narrative EXAM: CT CHEST PULMONARY EMBOLISM W CONTRAST LOCATION: [facility] DATE/TIME: 04/28/2021 6:09 PM INDICATION: Frequent falls. Weakness and dizziness. COMPARISON: 04/16/2021. TECHNIQUE: CT chest pulmonary angiogram during arterial phase injection of IV contrast. Multiplanar reformats and MIP reconstructions were performed. Dose reduction techniques were used. CONTRAST: 78 mL [id number]. FINDINGS: ANGIOGRAM CHEST: Pulmonary arteries are normal caliber and negative for pulmonary emboli. Thoracic aorta is negative for dissection. No CT evidence of right heart strain. LUNGS AND PLEURA: New small right pleural effusion with moderate size left pleural effusion. Left basilar consolidation with a few patchy regions of atelectasis in the mid and lower lungs. MEDIASTINUM/AXILLAE: Interval sternotomy and postsurgical changes of CABG. CORONARY ARTERY CALCIFICATION: CABG. UPPER ABDOMEN: Normal. MUSCULOSKELETAL: Normal. Impression IMPRESSION: 1. No pulmonary embolism. 2. New sternotomy with postsurgical changes of CABG. New moderate sized left and small right pleuraleffusion with left basilar consolidation. Scattered mild infiltrate or atelectasis in the mid and lower lungs. Head CT w/o contrast Narrative EXAM: CT HEAD W/O CONTRAST LOCATION: [facility] DATE/TIME: 04/28/2021 6:11 PM INDICATION: Dizziness, non-specific COMPARISON: None. TECHNIQUE: Routine CT Head without IV contrast. Multiplanar reformats. Dose reduction techniques were used. FINDINGS: INTRACRANIAL CONTENTS: No intracranial hemorrhage, extraaxial collection, or mass effect. 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 No definite acute infarct. Mild generalizedvolume loss. No hydrocephalus. VISUALIZED ORBITS/SINUSES/MASTOIDS: No intraorbital abnormality. No paranasal sinus mucosal disease.No middle ear or mastoid effusion. BONES/SOFT TISSUES: No acute abnormality. Impression IMPRESSION: 1. 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 No definite acute infarct. 2. Mild atrophy. US Lower Extremity Venous Duplex Bilateral Narrative EXAM: US LOWER EXTREMITY VENOUS DUPLEX BILATERAL LOCATION: [facility] DATE/TIME: 04/28/2021 11:41 PM INDICATION: LE edema COMPARISON: None. TECHNIQUE: Venous Duplex ultrasound of bilateral lower extremities with and without compression, augmentation and duplex. Color flow and spectral Doppler with waveform analysis performed. FINDINGS: Exam includes the common femoral, femoral, popliteal veins as well as segmentally visualized deep calf veins and greater saphenous vein. RIGHT: No deep vein thrombosis. No superficial thrombophlebitis. No popliteal cyst. LEFT: No deep vein thrombosis. No superficial thrombophlebitis. No popliteal cyst. Impression IMPRESSION: 1. No deep venous thrombosis in the bilateral lower extremities. US Thoracentesis Narrative US THORACENTESIS 04/29/2021 3:53 PM CLINICAL HISTORY: s/p cabg, L pleural effusion PROCEDURE: Informed consent obtained. Time out performed. The chest was prepped and draped in sterile fashion. 10 mL of 1% Xylocaine was infused into the local soft tissues. Under direct ultrasound guidance, a 5 Trinidadian catheter system was placed into the pleural effusion. 1.0 liters of red fluid were removed and sent to lab, if requested. Patient tolerated procedure well. Ultrasound imaging was obtained and placed in the patient's permanent medical record. Impression IMPRESSION: 1. Status post left ultrasound-guided thoracentesis. Reference CPT Code: 10755 YVAN JONES MD US Renal Complete w Duplex Complete Narrative US RENAL COMPLETE WITH DOPPLER COMPLETE 04/29/2021 4:24 PM HISTORY: Status post coronary artery bypass graft. Malignant hypertension. COMPARISON: 09/28/2013 FINDINGS: The right kidney measures 10.7 x 5.9 x 5.0 cm. The right renal cortex measures 1.3 cm in thickness. There is no hydronephrosis. Renal cortical echogenicity is unremarkable. Spectral waveform analysis was performed. The peak systolic velocities in the right renal artery at its hilum, mid and origin are 105, 152 and 145 cm/sec respectively. Low resistance waveforms are identified in the right renal artery. The resistance indices in the right arcuate arteries range between 0.68-0.76. RAR ratios range between 0.9 to 1.2. The left kidney measures 12.5 x 5.8 x 6.1 cm. The left renal cortex measures 1.2 cm in thickness. There is no hydronephrosis. Renal cortical echogenicity is unremarkable. There is a simple cyst in the inferior pole of the left kidney measuring 1.8 cm, not significantly changed when compared to the study from 09/28/2013, no further follow-up needed. Spectral waveform analysis was performed. The peak systolic velocities in the left renal artery at its hilum, mid and origin are 84, 172 and 177 cm/sec respectively. Low resistance waveforms are identified in the left renal artery. The resistance indices in the left arcuate arteries range between 0.78-0.79. RAR ratios range between 0.7 to 1.5. The peak systolic velocity in the abdominal aorta superior to the origin of the renal arteries is 122 cm per sec. The blader was not visualized. Impression IMPRESSION: No evidence of renal artery stenosis. XR Chest 2 Views Narrative XR CHEST 2 VW 04/30/2021 12:21 PM HISTORY: s/p thoracentesis and removal of 1L COMPARISON: 04/27/2021 and 04/28/2021 Impression IMPRESSION:Stable small bilateral pleural effusions, left greater than right and mild bibasilar atelectasis. No pneumothorax. Median sternotomy and mediastinal surgical clips. YVAN JONES MD Discharge Medications Current Discharge Medication List START taking these medications Details !! hydrALAZINE (APRESOLINE) 25 MG tablet Take 1 tablet (25 mg) by mouth daily as needed (for blood pressure >170 mmHg) Qty: 20 tablet, Refills: 0 Associated Diagnoses: S/P CABG (coronary artery bypass graft) !! hydrALAZINE (APRESOLINE) 50 MG tablet Take 1 tablet (50 mg) by mouth 3 times daily Qty: 90 tablet, Refills: 0 Associated Diagnoses: S/P CABG (coronary artery bypass graft) isosorbide mononitrate (IMDUR) 30 MG 24 hr tablet Take 1 tablet (30 mg) by mouth daily Qty: 30 tablet, Refills: 3 Associated Diagnoses: S/P CABG (coronary artery bypass graft) !! - Potential duplicate medications found. Please discuss with provider. CONTINUE these medications which have CHANGED Details gabapentin (NEURONTIN) 300 MG capsule Take 1 capsule (300 mg) by mouth 2 times daily Associated Diagnoses: S/P CABG (coronary artery bypass graft) insulin glargine (LANTUS PEN) 100 UNIT/ML pen Inject 55 Units Subcutaneous At Bedtime Comments: If Lantus is not covered by insurance, may substitute Basaglar at same dose and frequency. Associated Diagnoses: Type 2 diabetes mellitus with other circulatory complication, with long-term current use of insulin (H) CONTINUE these medications which have NOT CHANGED Details acetaminophen (TYLENOL) 325 MG tablet Take 2 tablets (650 mg) by mouth every 4 hours as needed for mild pain Qty: 40 tablet, Refills: 0 Associated Diagnoses: S/P CABG (coronary artery bypass graft) amLODIPine (NORVASC) 10 MG tablet Take 1 tablet (10 mg) by mouth daily Qty: 30 tablet, Refills: 3 Associated Diagnoses: S/P CABG (coronary artery bypass graft) aspirin (ASA) 81 MG chewable tablet 4 tablets (324 mg) by Oral or NG Tube route daily Qty: 30 tablet, Refills: 0 Associated Diagnoses: S/P CABG (coronary artery bypass graft) cloNIDine (CATAPRES) 0.1 MG tablet Take 1 tablet (0.1 mg) by mouth 2 times daily Qty: 60 tablet, Refills: 3 Associated Diagnoses: S/P CABG (coronary artery bypass graft) cyanocobalamin (VITAMIN B-12) 1000 MCG tablet Take 1,000 mcg by mouth daily famotidine (PEPCID) 20 MG tablet Take 1 tablet (20 mg) by mouth 2 times daily for 14 days Qty: 28 tablet, Refills: 0 Associated Diagnoses: S/P CABG (coronary artery bypass graft) ferrous sulfate 140 (45 Fe) MG TBCR CR tablet Take 1 tablet (140 mg) by mouth daily Qty: 30 tablet, Refills: 1 Associated Diagnoses: S/P CABG (coronary artery bypass graft) glucagon 1 MG kit 1 mg once as needed for low blood sugar HEMP OIL OR EXTRACT OR OTHER CBD CANNABINOID, NOT MEDICAL CANNABIS, Apply 1 Application topically 2 times daily as needed (Arthritis on right knee and wrist) insulin lispro (HUMALOG) 100 UNIT/ML vial 1 [...] greater than 350 - give 10 units. Associated Diagnoses: Type 2 diabetes mellitus with other circulatory complication, with long-term current use of insulin (H) melatonin 3 MG CAPS Take 3 mg by mouth At Bedtime polyethylene glycol (MIRALAX) 17 GM/Dose powder Take 17 g by mouth daily Qty: 510 g, Refills: 0 Associated Diagnoses: S/P CABG (coronary artery bypass graft) Polyethylene Glycol 400 (BLINK TEARS OP) Place 1 drop into both eyes daily as needed rosuvastatin (CRESTOR) 40 MG tablet Take 1 tablet (40 mg) by mouth every evening Qty: 90 tablet, Refills: 3 Associated Diagnoses: Coronary artery disease involving mohegan coronary artery of mohegan heart without angina pectoris; Hyperlipidemia LDL goal <70; S/P coronary artery stent placement senna-docusate (SENOKOT-S/PERICOLACE) 8.6-50 MG tablet Take 1 tablet by mouth 2 times daily as needed for constipation Qty: 20 tablet, Refills: 0 Associated Diagnoses: S/P CABG (coronary artery bypass graft) sertraline (ZOLOFT) 50 MG tablet Take 50 mg by mouth daily Sleep doctor recommends taking at bedtime Turmeric 500 MG CAPS Take 1 capsule by mouth every morning Continuous Blood Gluc Sensor (DEXCOM G6 SENSOR) MISC ONE TOUCH ULTRA TEST STRP as directed Qty: 100, Refills: prn Associated Diagnoses: Type II or unspecified type diabetes mellitus without mention of complication, not stated as uncontrolled SYRINGE B-D MICRO FINE 1/2 CC SYRINGES as directed Qty: 100, Refills: prn STOP taking these medications carvedilol (COREG) 6.25 MG tablet Comments: Reason for Stopping: doxycycline hyclate (VIBRAMYCIN) 100 MG capsule Comments: Reason for Stopping: furosemide (LASIX) 20 MG tablet Comments: Reason for Stopping: lisinopril (ZESTRIL) 40 MG tablet Comments: Reason for Stopping: methocarbamol (ROBAXIN) 500 MG tablet Comments: Reason for Stopping: oxyCODONE (ROXICODONE) 5 MG tablet Comments: Reason for Stopping: Allergies Allergies Allergen Reactions ??? Atorvastatin Other (See Comments) Congestion ??? Epinephrine Palpitations documented in this encounter Medications at Time [...] mouth every Coronary artery disease evening involving mohegan coronary artery of mohegan heart without angina pectoris, Hyperlipidemia LDL goal <70, S/P coronary artery stent placement senna-docusate Take 1 tablet by 20 tablet 0 04/25/202110/2020 (SENOKOT-S/PERICOLACE) mouth 2 times daily 8.6-50 MG as needed for tabletIndications: S/P constipation CABG (coronary artery bypass graft) documented as of this encounter Progress Notes Mabel Pink RN - 05/01/2021 4:18 PM CDT A&O x 4, VSS on RA, no c/o pain, up with assist of SB 1, voiding adequately in urinal, IV pulled, to discharge home with increased hydralazine dose, continue to monitor for remainder of hospitalization. Brenda Willoughby PA-C - 05/01/2021 3:43 PM CDT CV Surgery Contacted by nurse that after walk, Ceci had blood pressures at 176/69, 30 mins later 160/58, will give 1 time dose 25 mg PO hydralazine and inc home hydralazine to 100 mg tid. He will continue to monitor his blood pressure at home and call with concerns. Will add back lisinopril in future in HTN persists. Brenda Willoughby PA-C Brenda Willoughby PA-C - 05/01/2021 11:45 AM CDT CV Surgery A/P: s/p CABG on 04/19/[address] Gardner, readmitted for falls. Discussed with Ceci's gold leaf layer Dr. Solis about future regimen for better blood pressure control. Will start Imdur per his recs and send with prn hydralazine (in addition to tid dose) if SBP>170 mmHg. He has a new blood pressure cuff that he will check his blood pressures with ([facility] and found to be accurate). I will call Ceci tomorrow to follow up. I have asked RN to give Imdur now and monitor blood pressures next couple of hours. If stable, will send home this afternoon. Also, arranged for a Holter at cardiology request and follow up next week with Karoline Guerrero PA-C with Cardiology. S: Sitting up in bed, went for a walk, blood pressure before walking 129/72, HR: 72, after walking 149/70 HR: 86. Denies any symptoms. Wants to go home as has follow up apt tomorrow with his PCP. O: B/P: 126/46, T: 98, P: 70, R: 16 General: NAD Heart: s1/s2, no m/r/g Lungs: course Abd: s/nt/nd Sternum: cdi Extremities: trace LE edema Lab Results Component Value Date WBC 11.6 04/30/2021 WBC 8.8 01/02/2021 Lab Results Component Value Date RBC 2.77 04/30/2021 RBC 3.93 01/02/2021 Lab Results Component Value Date HGB 8.2 04/30/2021 HGB 11.3 01/02/2021 Lab Results Component Value Date HCT 26.3 04/30/2021 HCT 34.5 01/02/2021 No components found for: MCT Lab Results Component Value Date MCV 95 04/30/2021 MCV 88 01/02/2021 Lab Results Component Value Date MCH 29.6 04/30/2021 MCH 28.8 01/02/2021 Lab Results Component Value Date MCHC 31.2 04/30/2021 MCHC 32.8 01/02/2021 Lab Results Component Value Date RDW 14.1 04/30/2021 RDW 12.9 01/02/2021 Lab Results Component Value Date PLT 284 04/30/2021 PLT 202 01/02/2021 Last Basic Metabolic Panel: Lab Results Component Value Date NA 143 05/01/2021 NA 142 01/02/2021 Lab Results Component Value Date POTASSIUM 4.4 05/01/2021 POTASSIUM 4.8 01/02/2021 Lab Results Component Value Date CHLORIDE 114 05/01/2021 CHLORIDE 112 01/02/2021 Lab Results Component Value Date RICHIE 8.5 05/01/2021 RICHIE 8.6 01/02/2021 Lab Results Component Value Date CO2 24 05/01/2021 CO2 26 01/02/2021 Lab Results Component Value Date BUN 28 05/01/2021 BUN 40 01/02/2021 Lab Results Component Value Date CR 1.21 05/01/2021 CR 1.56 01/02/2021 Lab Results Component Value Date GLC 67 05/01/2021 GLC 115 01/02/2021 Brenda Willoughby PA-C Pager [phone] Dinora Livingston, LETICIA - 04/30/2021 8:57 PM CDT MD Notification Notified Person: MD Notified Person Name: Alhaji Notification Date/Time: 04/30/21 @0830 Notification Interaction: paged Purpose of Notification: elevated BP, see chart. Orders Received: Give another 10mg of IV hydralazine. Laureen Alcocer NP - 04/30/2021 6:53 PM CDT Hospitalist Cross Cover Note: Cross cover paged for elevated blood pressure. Per chart review CV surgery would like SBP less than 140 ideally. Issues have been noted with orthostasis. Hydralazine increased this morning. Plan: -As needed hydralazine for SBP greater than 160 -Further orders per CV surgery and hospitalist tomorrow Addendum: Patient again regarding elevated blood pressure. Plan: -We will defer to CV surgery, nursing will page CV surgery for further orders Laureen Alcocer APRN, CEMENT TRUCK LOADER Hospitalist Service, Covered Buckle Assembler [facility] Text Page Pager: [phone] Yasir Altamirano, DO - 04/30/2021 1:17 PM CDT [facility] Medicine Progress Note - Hospitalist Service Date of Admission: 04/28/2021 Assessment & Plan Generalized weakness likely a combination of toxic encephalopathy in the setting of acute kidney injury and possible pneumonia CKD III Discharged from hospital on 04/[address] head negative procalctionin negative, but is on antibiotics for possible pneumonia Renal function improving with IVF CT with new moderate left and right sided pleural effusions with left Plan - renal function improved to baseline and now off IVF - hold lasix and lisinopril with GENO - continue the ceftriaxone and azithromycin and follow-up on the cultures. I do not think he needs to broaden at this time due to normal procalctionin. Lung findings could be postoperative and thus I think short course of antibiotics are reasonable - PT/OT - dose reduction of his gabapentin has been completed, to 300 mg bid - cardiothoracic surgery consulted History of CABG on 04/19/2021 Pleural effusion status post thoracentesis on 04/29 Removed 1 liter of sanguinous output, likely postoperative Plan - CVS consulted HTN Plan - continue amlodipine - continue holding the lasix and lisinopril given the acute kidney injury - hydralazine increased to 50 mg tid - off of BB due to bradycardia - resume clonidine - prn IV hydralazine DM1, insulin dependent. Difficult control during CABG admission and discharged on increased lantus dose, but he reports on return home and his home regimen he was under good control As such, he does not trust the hospital glucometer Patient declines using hospital meter and demands to use his own CGM which will inform him what to take in terms of short acting Asked pharmacy to reconcile his meter settings with our orders Based on his meter readings during the last 24 hours his blood sugars has ranged from 83-160 with nolows At this point, will attempt to accommodate his request to use his home meter as long as he shares his readings with the nursing to document in the chart and obtain short acting insulin from our pharmacy He is a reliable patient Plan - reduce lantus 55 units daily, - continue1:5 carb counting, and his home sliding scale - he will share his meter glucose values tid ac and at bedtime with the nurse who will provide sliding scale and carb coverage from our pharmacy - RN to document blood glucose into Epic. - hypoglycemia protocol in place Acute blood loss anemia Plan - stable - iron studies normal HLD - on crestor Diet: Combination Diet Consistent Carb 75 Grams CHO per Meal Diet; Low Saturated Fat Na <2400mg Diet, No Caffeine Diet DVT Prophylaxis: Pneumatic Compression Devices Carr Catheter: Not present Central Lines: None Code Status: Full Code Disposition Plan Expected discharge: 05/01/2021 recommended to prior living arrangement once improved. The patient's care was discussed with the Patient. Yasir Altamirano, DO Hospitalist Service [facility] Securely message with the [employer] Web Console (learn more here) Text page via [employer] Paging/Directory Clinically Significant Risk Factors Present on Admission Interval History Had 1 low last night and with convining he is agreeable to reduce his lantus Data reviewed today: I reviewed all medications, new labs and imaging results over the last 24 hours. I personally reviewed no images or EKG's today. Physical Exam Vital Signs: Temp: 98.5 ??F (36.9 ??C) Temp src: Oral BP: (!) 156/60 Pulse: 60 Resp: 16 SpO2: 98 % O2 Device: None (Room air) Oxygen Delivery: 2 LPM Weight: 230 lbs 9.62 oz ?? Constitutional: Awake, alert, cooperative, no apparent distress. Eyes: Conjunctiva and pupils examined and normal. HEENT: Moist mucous membranes, normal dentition. Respiratory: diminished air entry bilaterally, no crackles or wheezing. Cardiovascular: bradycardic but regular rhythm, normal S1 and S2, and no murmur noted. GI: Soft, non-distended, non-tender, normal bowel sounds. Lymph/Hematologic: No anterior cervical or supraclavicular adenopathy. Skin: No rashes, no cyanosis, 2+ edema. Musculoskeletal: No joint swelling, erythema or tenderness. Neurologic: Cranial nerves 2-12 intact, normal strength and sensation. Psychiatric: Alert, oriented to person, place and time, no obvious anxiety or depression. Data Recent Labs Lab 04/30/21 0733 04/29/21 0708 04/28/21 1550 04/27/21 1348 04/27/21 1348 WBC 11.6* 10.1 11.0 < > 11.8* HGB 8.2* 7.7* 7.8* < > 8.1* MCV 95 94 94 < > 94 PLT 284 274 262 < > 252 NA 144 144 141 < > 142 POTASSIUM 4.6 4.7 4.8 < > 4.5 CHLORIDE 115* 114* 111* < > 110* CO2 24 24 25 < > 26 BUN 32* 47* 55* < > 54* CR 1.28* 1.64* 2.16* < > 1.67* ANIONGAP 5 6 5 < > 6 RICHIE 8.2* 8.2* 8.2* < > 8.5 GLC 99 88 153* < > 131* ALBUMIN -- 2.3* 2.4* -- -- PROTTOTAL -- 5.8* 5.9* -- -- BILITOTAL -- 0.5 0.3 -- -- ALKPHOS -- 60 64 -- -- ALT -- 30 34 -- -- AST -- 22 22 -- -- TROPONIN -- -- 0.050* -- 0.066* < > = values in this interval not displayed. Recent Results (from the past 24 hour(s)) US Thoracentesis Narrative US THORACENTESIS 04/29/2021 3:53 PM CLINICAL HISTORY: s/p cabg, L pleural effusion PROCEDURE: Informed consent obtained. Time out performed. The chest was prepped and draped in sterile fashion. 10 mL of 1% Xylocaine was infused into the local soft tissues. Under direct ultrasound guidance, a 5 Trinid[place] catheter system was placed into the pleural effusion. 1.0 liters of red fluid were removed and sent to lab, if requested. Patient tolerated procedure well. Ultrasound imaging was obtained and placed in the patient's permanent medical record. Impression IMPRESSION: 1. Status post left ultrasound-guided thoracentesis. Reference CPT Code: 47748 YVAN JONES MD US Renal Complete w Duplex Complete Narrative US RENAL COMPLETE WITH DOPPLER COMPLETE 04/29/2021 4:24 PM HISTORY: Status post coronary artery bypass graft. Malignant hypertension. COMPARISON: 09/28/2013 FINDINGS: The right kidney measures 10.7 x 5.9 x 5.0 cm. The right renal cortex measures 1.3 cm in thickness. There is no hydronephrosis. Renal cortical echogenicity is unremarkable. Spectral waveform analysis was performed. The peak systolic velocities in the right renal artery at its hilum, mid and origin are 105, 152 and 145 cm/sec respectively. Low resistance waveforms are identified in the right renal artery. The resistance indices in the right arcuate arteries range between 0.68-0.76. RAR ratios range between 0.9 to 1.2. The left kidney measures 12.5 x 5.8 x 6.1 cm. The left renal cortex measures 1.2 cm in thickness. There is no hydronephrosis. Renal cortical echogenicity is unremarkable. There is a simple cyst in the inferior pole of the left kidney measuring 1.8 cm, not significantly changed when compared to the study from 09/28/2013, no further follow-up needed. Spectral waveform analysis was performed. The peak systolic velocities in the left renal artery at its hilum, mid and origin are 84, 172 and 177 cm/sec respectively. Low resistance waveforms are identified in the left renal artery. The resistance indices in the left arcuate arteries range between 0.78-0.79. RAR ratios range between 0.7 to 1.5. The peak systolic velocity in the abdominal aorta superior to the origin of the renal arteries is 122 cm per sec. The blader was not visualized. Impression IMPRESSION: No evidence of renal artery stenosis. XR Chest 2 Views Narrative XR CHEST 2 VW 04/30/2021 12:21 PM HISTORY: s/p thoracentesis and removal of 1L COMPARISON: 04/27/2021 and 04/28/2021 Impression IMPRESSION:Stable small bilateral pleural effusions, left greater than right and mild bibasilar atelectasis. No pneumothorax. Median sternotomy and mediastinal surgical clips. YVAN JONES MD Medications ??? amLODIPine 10 mg Oral Daily ??? aspirin 324 mg Oral or NG Tube Daily ??? azithromycin 500 mg Intravenous Q24H ??? cefTRIAXone 2 g Intravenous Q24H ??? cyanocobalamin 1,000 mcg Oral Daily ??? famotidine 20 mg Oral BID AC ??? ferrous sulfate 140 mg Oral Daily ??? gabapentin 300 mg Oral BID ??? hydrALAZINE 50 mg Oral TID ??? insulin aspart Subcutaneous TID w/meals ? ? insulin aspart 1-7 Units Subcutaneous 4x Daily AC & HS ??? insulin glargine 55 Units Subcutaneous At Bedtime ??? sertraline 50 mg Oral QPM ??? sodium chloride (PF) 3 mL Intracatheter Q8H Shavon Pisano PA-C - 04/30/2021 10:46 AM CDT CV Surgery S: No acute events overnight. Pain controlled. Saturating well on room air-- nasal cannula on but oxygen turned off, patient reports stable saturations with walking. Requesting recliner. Has been unable to walk much with staff this admission and has not been seen by therapy teams. Tolerated thoracentesis yesterday for left pleural effusion with removal of 1L. O: B/P: 156/62, T: 98.5, P: 60, R: 16 General: NAD Heart: RRR Normal s1 and s2 Lungs: diminished bases Sternum: CDI Extremities: minimal edema Lab Results Component Value Date WBC 11.6 04/30/2021 WBC 8.8 01/02/2021 Lab Results Component Value Date RBC 2.77 04/30/2021 RBC 3.93 01/02/2021 Lab Results Component Value Date HGB 8.2 04/30/2021 HGB 11.3 01/02/2021 Lab Results Component Value Date HCT 26.3 04/30/2021 HCT 34.5 01/02/2021 No components found for: MCT Lab Results Component Value Date MCV 95 04/30/2021 MCV 88 01/02/2021 Lab Results Component Value Date MCH 29.6 04/30/2021 MCH 28.8 01/02/2021 Lab Results Component Value Date MCHC 31.2 04/30/2021 MCHC 32.8 01/02/2021 Lab Results Component Value Date RDW 14.1 04/30/2021 RDW 12.9 01/02/2021 Lab Results Component Value Date PLT 284 04/30/2021 PLT 202 01/02/2021 Last Basic Metabolic Panel: Lab Results Component Value Date NA 144 04/30/2021 NA 142 01/02/2021 Lab Results Component Value Date POTASSIUM 4.6 04/30/2021 POTASSIUM 4.8 01/02/2021 Lab Results Component Value Date CHLORIDE 115 04/30/2021 CHLORIDE 112 01/02/2021 Lab Results Component Value Date RICHIE 8.2 04/30/2021 RICHIE 8.6 01/02/2021 Lab Results Component Value Date CO2 24 04/30/2021 CO2 26 01/02/2021 Lab Results Component Value Date BUN 32 04/30/2021 BUN 40 01/02/2021 Lab Results Component Value Date CR 1.28 04/30/2021 CR 1.56 01/02/2021 Lab Results Component Value Date GLC 99 04/30/2021 GLC 115 01/02/2021 A/P: s/p CABG on 04/19/[address] Gardner, readmitted for falls. Continue to hold carvedilol d/t bradycardia Hydralazine increased to 50mg TID today. Lisinopril and lasix on hold for GENO, clonidine on hold-- consider resuming if/when appropriate for HTN GENO improving 1.28 today-- hx of CKD with baseline Cr: 1.3-1.4 Will order inpatient cardiac rehab to evaluate and treat today, specifically evaluate gait/stability Will repeat CXR today Shavon Pisano PA-C Pager [phone] Daphnie Guevara RN - 04/29/2021 3:06 PM CDT Care Suites Procedure Nursing Note Patient Information Name: Ceci Lind Age: [age] year old Procedure Procedure: Thoracentesis Procedure start time: 14:50 Procedure complete time: 15:05 Concerns/abnormal assessment: None Pt tolerated well. VSS. 1000 cc dark red fluid removed without difficulty. Bandaid applied to site - CDI. Pt is having renal ultrasound now. Will transfer back to [facility] per cart & transport. Detailed report called to LETICIA Patton. Tiffany Mancia OTR - 04/29/2021 2:33 PM CDT 04/29/21 1400 Quick Adds Type of Visit Initial Occupational Therapy Evaluation Living Environment People in home spouse Current Living Arrangements house Home Accessibility stairs to enter home Number of Stairs, Main Entrance 1 Stair Railings, Main Entrance none Transportation Anticipated family or friend will provide Living Environment Comments Pt lives in a one level rambler with walk in shower and standard height toilets Self-Care Usual Activity Tolerance good Current Activity Tolerance fair Regular Exercise Yes Activity/Exercise Type walking Exercise Amount/Frequency daily Equipment Currently Used at Home none Activity/Exercise/Self-Care Comment Does not use device at baseline, previously independent with allADLs Instrumental Activities of Daily Living (IADL) Previous Responsibilities meal prep;housekeeping;laundry;shopping;yardwork;medication management;pawan nces;driving IADL Comments Spouse able to assist as needed Disability/Function Fall history within last six months yes Number of times patient has fallen within last six months 9 General Information Onset of Illness/Injury or Date of Surgery 04/28/21 Referring Physician Faisal Rojas MD Patient/Family Therapy Goal Statement (OT) To return home with spouse when medically stable Additional Occupational Profile Info/Pertinent History of Current Problem 70-year-old male with history of hypertension, diabetes mellitus type 2, peripheral vascular disease, coronary artery disease, status post CABG on 04/19/2021 and was discharged on 04/25/2021; hyperlipidemia, chronic kidney disease stage III, restless leg syndrome, possible obstructive sleep apnea, comes to the ER with complaintof weakness, not feeling well and dizzy Existing Precautions/Restrictions fall;sternal Limitations/Impairments sensory Cognitive Status Examination Orientation Status orientation to person, place and time Affect/Mental Status (Cognitive) WFL Follows Commands WFL Sensory Sensory Comments Bilateral neuropathy resulting in falls Posture Posture Comments WNL Range of Motion Comprehensive Comment, General Range of Motion WNL Strength Comprehensive (MMT) Comment, General Manual Muscle Testing (MMT) Assessment WNL Clinical Impression Criteria for Skilled Therapeutic Interventions Met (OT) yes;meets criteria;skilled treatment is necessary OT Diagnosis Decreased activity tolerance, impaired ADL independence OT Problem List-Impairments impacting ADL problems related to;activity tolerance impaired;sensation Assessment of Occupational Performance 3-5 Performance Deficits Identified Performance Deficits Decreased activity tolerance, impaired ADL independence Planned Therapy Interventions (OT) ADL retraining;IADL retraining;progressive activity/exercise Clinical Decision Making Complexity (OT) low complexity Therapy Frequency (OT) 5x/week Predicted Duration of Therapy 2 days Anticipated Equipment Needs Upon Discharge (OT) (TBD) Risk & Benefits of therapy have been explained evaluation/treatment results reviewed;care plan/treatment goals reviewed;risks/benefits reviewed;current/potential barriers reviewed;participants voiced agreement with care plan;participants included;patient;spouse/significant other OT Discharge Planning OT Discharge Recommendation (DC Rec) Home with assist;home with outpatient cardiac rehab OT Rationale for DC Rec Assist in taxing IADLs including home management tasks, yardwork, transportation etc. OP CR for monitored and progressive physical activity and education. OT Brief overview of current status CGA for short distances Total Evaluation Time (Minutes) Total Evaluation Time (Minutes) 8 Laureen López, PT - 04/29/2021 11:17 AM CDT 04/29/21 0830 Quick Adds Type of Visit Initial PT Evaluation Living Environment People in home spouse Current Living Arrangements house Home Accessibility stairs to enter home Number of Stairs, Main Entrance 1 Stair Railings, Main Entrance none Number of Stairs, Within Home, Primary (lives on main level) Stair Railings, Within Home, Primary railings safe and in good condition Transportation Anticipated family or friend will provide Living Environment Comments Rambler walkout, walk-in shower Self-Care Usual Activity Tolerance good Current Activity Tolerance fair Regular Exercise Yes Activity/Exercise Type walking Exercise Amount/Frequency daily Equipment Currently Used at Home none Activity/Exercise/Self-Care Comment Pt and spouse retired, independent with all ADLs/IADLs and mobility. No devices at home like cane or walker Disability/Function Fall history within last six months yes Number of times patient has fallen within last six months (9 per medical chart ) General Information Onset of Illness/Injury or Date of Surgery 04/28/21 Referring Physician Faisal Rojas MD Patient/Family Therapy Goals Statement (PT) walk better without feeling weak or dizzy, return home at discharge Pertinent History of Current Problem (include personal factors and/or comorbidities that impact the POC) 70-year-old male with history of hypertension, diabetes mellitus type 2, peripheral vascular disease, coronary artery disease, status post CABG on 04/19/2021 and was discharged on 04/25/2021; hyperlipidemia, chronic kidney disease stage III, restless leg syndrome, possible obstructive sleep apnea,comes to the ER with complaint of weakness, not feeling well and dizzy Existing Precautions/Restrictions sternal (recent CABG 04/19) General Observations Has cardiac pillow here Cognition Orientation Status (Cognition) oriented x 4 Affect/Mental Status (Cognition) WFL Follows Commands (Cognition) WFL Pain Assessment Patient Currently in Pain No Strength Manual Muscle Testing Quick Adds No deficits observed during functional mobility Strength Comments grossly 5/5 B LEs, however subjective weakness felt when walking at home. no weakness reported after standing x 4 mins Bed Mobility Comment (Bed Mobility) SBA supine <> sit with log roll and cardiac pillow present Transfers Transfer Safety Comments CGA sit <> stand without device Gait/Stairs (Locomotion) [place] Level (Gait) supervision Assistive Device (Gait) (none) Distance in Feet (Required for LE Total Joints) deferred walking due to high BP, able to stand with SBA x 4 mins Sensory Examination Sensory Perception other (describe) Sensory Perception Comments Pt has bilateral neuropathy with feet numbness reported Clinical Impression Criteria for Skilled Therapeutic Intervention yes, treatment indicated PT Diagnosis (PT) impaired mobility Influenced by the following impairments unstable vitals, weakness, dizziness Functional limitations due to impairments decreased activity tolerance, high fall risk Clinical Presentation Evolving/Changing Clinical Presentation Rationale clinical judgement Clinical Decision Making (Complexity) low complexity Therapy Frequency (PT) Daily Predicted Duration of Therapy Intervention (days/wks) 7 days Planned Therapy Interventions (PT) balance training;bed mobility training;gait training;home exercise program;neuromuscular re-education;stair training;strengthening;transfer training Anticipated Equipment Needs at Discharge (PT) (none pending medical progression ) Risk & Benefits of therapy have been explained evaluation/treatment results reviewed;care plan/treatment goals reviewed;risks/benefits reviewed;current/potential barriers reviewed;participants voiced agreement with care plan;participants included;patient PT Discharge Planning PT Discharge Recommendation (DC Rec) (Likely home with spouse assist ) PT Rationale for DC Rec Pt's activity limited today during PT evaluation due to high BP with little/no activity. At rest, supine BP at 172/75 mmHg, once sitting BP increased to 196/86 mmHg, will defer further activity until BP better managed. Pt currently performing mobility and standing with SBA x 4 mins, anticipate patient will be safe to return home pending further work-up and managed vitals. Total Evaluation Time Total Evaluation Time (Minutes) 15 Brenda Willoughby PA-C - 04/29/2021 9:41 AM CDT Cardiovascular and Thoracic Surgery Consultation Ceci Lind Date of : 1950 Age: [age] year old Date of Admission: 04/28/2021 Reason for consult: falls Assessment and Plan: Falls: Stopped carvedilol as HR too low and likely cause of falls. Our threshold is 65 BPM. Added back one time low dose lisinopril as hypertensive 150-170s. Receiving fluids as slt GENO on CKD. Continue to monitor. Falls always occurred after sitting for prolonged period of time then standing/walking.Repeated orthostatics in room sittin/72, standing 149/70. Hold BB, added hydralazine as would ideally like to have SBP 140 or less. Has strong family HTN, US renal artery, catecholamines tomorrow. Chief Complaint: Presented to the ED with history of falls. History is obtained from the patient & chart History of Present Illness: This patient is a 70 year old male who presents with multiple falls. He is s/p cabg x3 by Dr. Gardner on 04/19/21. He was out walking to talk with neighbor and fell. Neighbors helped him up. Past Medical History: History: No history on file. Past Surgical History: Past Surgical History: Procedure [...] Surgeon: Darwin Valero MD; [facility] ??? CV INSTANTANEOUS WAVE-FREE RATIO N/A 03/13/2021 Procedure: Instantaneous Wave-Free Ratio; Surgeon: Darwin Valero MD; Location: [facility] ??? HC LEFT HEART CATHETERIZATION 04/01/2016 mild LAD (30%), 50-60% rPDA ? ? HEAD & NECK SURGERY wisdom teeth extractions, subacious cyst removed ??? HEART CATH CORONARY ANGIOGRAM W/LV GRAM 01/03/15 70% prox PDA - FFR 0.77, 70% OM2 - FFR 0.79, 70-80% OM3 -FFR 0.77, 70-80% OM4, Social History: Social History Tobacco Use ??? Smoking status: Former Smoker Years: 2.00 Types: Cigarettes Quit date: 04/19/1972 Years since quittin.0 ??? Smokeless tobacco: Never Used Substance Use Topics ??? Alcohol use: Yes Alcohol/week: 0.0 standard drinks Comment: beer and wine , 2 most days Family History: Family History Problem Relation Age of Onset ??? Hypertension Mother ??? Diabetes Maternal Grandmother ??? Hypertension Maternal Grandmother ??? Hypertension Maternal Grandfather Immunizations: Immunization History Administered Date(s) Administered ??? COVID-19,PF,Moderna 10/12/2020 ??? Influenza (IIV3) PF 06/30/1997, 07/27/2002 ??? Pneumococcal 23 valent 06/30/1997 ??? TD (ADULT, 7+) 06/30/1997 Allergies: Allergies Allergen Reactions ??? Atorvastatin Other (See Comments) Congestion ??? Epinephrine Palpitations Medications: Current Facility-Administered Medications Ordered in Epic Medication Dose Route Frequency Last Rate Last Admin ??? acetaminophen (TYLENOL) tablet 650 mg 650 mg Oral Q4H PRN ??? amLODIPine (NORVASC) tablet 10 mg 10 mg Oral Daily 10 mg at 04/29/21 0900 ??? aspirin (ASA) chewable tablet 324 mg 324 mg Oral or NG Tube Daily 324 mg at 04/29/21 0901 ??? azithromycin (ZITHROMAX) 500 mg vial to attach to NS 250 mL bag 500 mg Intravenous Q24H 250 mL/hr at 04/29/21 0100 500 mg at 04/29/21 0100 ??? cefTRIAXone (ROCEPHIN) 2 g vial to attach to NS 100 ml bag for ADULTS or NS 50 ml bag for PEDS 2g Intravenous Q24H ??? cyanocobalamin (VITAMIN B-12) tablet 1,000 mcg 1,000 mcg Oral Daily 1,000 mcg at 04/29/21 0900 ??? glucose gel 15-30 g 15-30 g Oral Q15 Min PRN Or ??? dextrose 50 % injection 25-50 mL 25-50 mL Intravenous Q15 Min PRN Or ??? glucagon injection 1 mg 1 mg Subcutaneous Q15 Min PRN ??? glucose gel 15-30 g 15-30 g Oral Q15 Min PRN Or ??? dextrose 50 % injection 25-50 mL 25-50 mL Intravenous Q15 Min PRN Or ??? glucagon injection 1 mg 1 mg Subcutaneous Q15 Min PRN ??? famotidine (PEPCID) tablet 20 mg 20 mg Oral BID AC 20 mg at 04/29/21 0606 ??? ferrous sulfate CR tablet 140 mg 140 mg Oral Daily 140 mg at 04/29/21 0900 ??? gabapentin (NEURONTIN) capsule 300 mg 300 mg Oral BID 300 mg at 04/29/21 0100 ??? insulin aspart (NovoLOG) injection (RAPID ACTING) Subcutaneous TID w/meals 11 Units at 04/29/21 0934 ??? insulin aspart (NovoLOG) injection (RAPID ACTING) 1-7 Units Subcutaneous TID AC ??? insulin aspart (NovoLOG) injection (RAPID ACTING) 1-5 Units Subcutaneous At Bedtime ??? insulin glargine (LANTUS PEN) injection 70 Units 70 Units Subcutaneous At Bedtime 55 Units at 04/29/21 0056 ??? lidocaine (LMX4) cream Topical Q1H PRN ??? lidocaine 1 % 0.1-1 mL 0.1-1 mL Other Q1H PRN ??? lisinopril (ZESTRIL) tablet 10 mg 10 mg Oral Daily ??? melatonin tablet 1 mg 1 mg Oral At Bedtime PRN 1 mg at 04/28/212051 ??? ondansetron (ZOFRAN-ODT) ODT tab 4 mg 4 mg Oral Q6H PRN Or ??? ondansetron (ZOFRAN) injection 4 mg 4 mg Intravenous Q6H PRN ??? polyethylene glycol (MIRALAX) Packet 17 g 17 g Oral Daily PRN ??? prochlorperazine (COMPAZINE) injection 5 mg 5 mg Intravenous Q6H PRN Or ??? prochlorperazine (COMPAZINE) tablet 5 mg 5 mg Oral Q6H PRN Or ??? prochlorperazine (COMPAZINE) suppository 12.5 mg 12.5 mg Rectal Q12H PRN ??? senna-docusate (SENOKOT-S/PERICOLACE) 8.6-50 MG per tablet 1 tablet 1 tablet Oral BID PRN ??? sertraline (ZOLOFT) tablet 50 mg 50 mg Oral QPM 50 mg at 04/28/21 2250 ??? sodium chloride (PF) 0.9% PF flush 3 mL 3 mL Intracatheter Q8H ??? sodium chloride (PF) 0.9% PF flush 3 mL 3 mL Intracatheter q1 min prn ??? sodium chloride 0.9% infusion Intravenous Continuous 100 mL/hr at 04/29/21 0611 Rate Verify at 04/29/21 0611 No current Epic-ordered outpatient medications on file. Review of Systems: The 5 point Review of Systems is negative other than noted in the HPI Physical Exam: Vitals were reviewed Temp: 98.2 ??F (36.8 ??C) Temp src: Oral BP: (!) 157/48 Pulse: 50 Resp: 16 SpO2: 93 % O2 Device: Nasal cannula Oxygen Delivery: 1 LPM Constitutional: awake, alert, cooperative, no apparent distress, and appears stated age Eyes: Lids and lashes normal, pupils equal, round and reactive to light Neck: Supple, symmetrical, trachea midline, no adenopathy Back: Symmetric, no curvature Lungs: No increased work of breathing, diminished L side breath sounds Cardiovascular: Sternotomy incision, Normal apical impulse, regular rate and rhythm, normal S1 and S2, no S3 or S4,and no murmur noted Abdomen: No scars, normal bowel sounds, soft, non-distended, non-tender Data: Lab Results Component Value Date WBC 10.1 04/29/2021 HGB 7.7 (L) 04/29/2021 HCT 24.7 (L) 04/29/2021 PLT 274 04/29/2021 NA 144 04/29/2021 POTASSIUM 4.7 04/29/2021 CHLORIDE 114 (H) 04/29/2021 CO2 24 04/29/2021 BUN 47 (H) 04/29/2021 CR 1.64 (H) 04/29/2021 GLC 88 04/29/2021 DD 2.39 (H) 04/28/2021 TROPONIN 0.050 (H) 04/28/2021 AST 22 04/29/2021 ALT 30 04/29/2021 ALKPHOS 60 04/29/2021 BILITOTAL 0.5 04/29/2021 INR 1.31 (H) 04/19/2021 Associated attestation - Kushal Gardner MD - 04/29/2021 6:33 PM CDT Attestation: Physician Attestation I agree with the information in this note. Yasir Sauceda, - 04/29/2021 9:33 AM CDT [facility] Medicine Progress Note - Hospitalist Service Date of Admission: 04/28/2021 Assessment & Plan Generalized weakness likely a combination of toxic encephalopathy in the setting of acute kidney injury and possible pneumonia CKD III Discharged from hospital on 04/[address] head negative procalctionin negative, but is on antibiotics for possible pneumonia Renal function improving with IVF CT with new moderate left and right sided pleural effusions with left Plan - continue IV fluids today - hold lasix and lisinopril - continue the ceftriaxone and azithromycin and follow-up on the cultures. I do not think he needs to broaden at this time due to normal procalctionin. Lung findings could be postoperative - PT/OT - dose reduction of his gabapentin has been completed, to 300 mg bid - cardiothoracic surgery consulted History of CABG on 04/19/2021 Plan - [facility] consulted HTN Plan - continue amlodipine - continue holding the lasix and lisinopril given the acute kidney injury DM1, insulin dependent. Difficult control during CABG admission and discharged on increased lantus dose, but he reports on return home and his home regimen he was under good control As such, he does not trust the hospital glucometer Patient declines using hospital meter and demands to use his own CGM which will inform him what to take in terms of short acting Asked pharmacy to reconcile his meter settings with our orders Based on his meter readings during the last 24 hours his blood sugars has ranged from 83-160 with nolows At this point, will attempt to accommodate his request to use his home meter as long as he shares his readings with the nursing to document in the chart and obtain short acting insulin from our pharmacy He is a reliable patient Plan - resume current home regimen of lantus 55 units daily, 1:5 carb counting, and his home sliding scale - he will share his meter glucose values tid ac and at bedtime with the nurse who will provide sliding scale and carb coverage from our pharmacy - hypoglycemia Acute blood loss anemia Plan - stable - iron studies normal HLD - on crestor Diet: Combination Diet Consistent Carb 75 Grams CHO per Meal Diet; Low Saturated Fat Na <2400mg Diet, No Caffeine Diet DVT Prophylaxis: Pneumatic Compression Devices Carr Catheter: Not present Central Lines: None Code Status: Full Code Disposition Plan Expected discharge: 05/01/2021 recommended to prior living arrangement once improved. The patient's care was discussed with the Patient. Yasir Altamirano DO Hospitalist Service [facility] Securely message with the [employer] Console (learn more here) Text page via [facility] Paging/Directory Clinically Significant Risk Factors Present on Admission # Platelet Defect: home medication list includes an antiplatelet medication Interval History Records reviewed. Reviewed his glucose meter. He refuses to use the hospitalist glucmeter and declined 70 units of lantus Data reviewed today: I reviewed all medications, new labs and imaging results over the last 24 hours. I personally reviewed no images or EKG's today. Physical Exam Vital Signs: Temp: 98.2 ??F (36.8 ??C) Temp src: Oral BP: (!) 157/48 Pulse: 50 Resp: 16 SpO2: 93 % O2 Device: Nasal cannula Oxygen Delivery: 1 LPM Weight: 240 lbs 15.76 oz ?? Constitutional: Awake, alert, cooperative, no apparent distress. Eyes: Conjunctiva and pupils examined and normal. HEENT: Moist mucous membranes, normal dentition. Respiratory: diminished air entry bilaterally, no crackles or wheezing. Cardiovascular: bradycardic but regular rhythm, normal S1 and S2, and no murmur noted. GI: Soft, non-distended, non-tender, normal bowel sounds. Lymph/Hematologic: No anterior cervical or supraclavicular adenopathy. Skin: No rashes, no cyanosis, 2+ edema. Musculoskeletal: No joint swelling, erythema or tenderness. Neurologic: Cranial nerves 2-12 intact, normal strength and sensation. Psychiatric: Alert, oriented to person, place and time, no obvious anxiety or depression. Data Recent Labs Lab 04/29/21 0708 04/28/21 1550 04/27/21 1348 WBC 10.1 11.0 11.8* HGB 7.7* 7.8* 8.1* MCV 94 94 94 PLT 274 262 252 NA 144 141 142 POTASSIUM 4.7 4.8 4.5 CHLORIDE 114* 111* 110* CO2 24 25 26 BUN 47* 55* 54* CR 1.64* 2.16* 1.67* ANIONGAP 6 5 6 RICHIE 8.2* 8.2* 8.5 GLC 88 153* 131* ALBUMIN 2.3* 2.4* -- PROTTOTAL 5.8* 5.9* -- BILITOTAL 0.5 0.3 -- ALKPHOS 60 64 -- ALT 30 34 -- AST 22 22 -- TROPONIN -- 0.050* 0.066* Recent Results (from the past 24 hour(s)) Head CT w/o contrast Narrative EXAM: CT HEAD W/O CONTRAST LOCATION: [facility] DATE/TIME: 04/28/2021 6:11 PM INDICATION: Dizziness, non-specific COMPARISON: None. TECHNIQUE: Routine CT Head without IV contrast. Multiplanar reformats. Dose reduction techniques were used. FINDINGS: INTRACRANIAL CONTENTS: No intracranial hemorrhage, extraaxial collection, or mass effect. 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 No definite acute infarct. Mild generalizedvolume loss. No hydrocephalus. VISUALIZED ORBITS/SINUSES/MASTOIDS: No intraorbital abnormality. No paranasal sinus mucosal disease.No middle ear or mastoid effusion. BONES/SOFT TISSUES: No acute abnormality. Impression IMPRESSION: 1. 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 No definite acute infarct. 2. Mild atrophy. CT Chest Pulmonary Embolism w Contrast Narrative EXAM: CT CHEST PULMONARY EMBOLISM W CONTRAST LOCATION: [facility] DATE/TIME: 04/28/2021 6:09 PM INDICATION: Frequent falls. Weakness and dizziness. COMPARISON: 04/16/2021. TECHNIQUE: CT chest pulmonary angiogram during arterial phase injection of IV contrast. Multiplanar reformats and MIP reconstructions were performed. Dose reduction techniques were used. CONTRAST: 78 mL [id number]. FINDINGS: ANGIOGRAM CHEST: Pulmonary arteries are normal caliber and negative for pulmonary emboli. Thoracic aorta is negative for dissection. No CT evidence of right heart strain. LUNGS AND PLEURA: New small right pleural effusion with moderate size left pleural effusion. Left basilar consolidation with a few patchy regions of atelectasis in the mid and lower lungs. MEDIASTINUM/AXILLAE: Interval sternotomy and postsurgical changes of CABG. CORONARY ARTERY CALCIFICATION: CABG. UPPER ABDOMEN: Normal. MUSCULOSKELETAL: Normal. Impression IMPRESSION: 1. No pulmonary embolism. 2. New sternotomy with postsurgical changes of CABG. New moderate sized left and small right pleuraleffusion with left basilar consolidation. Scattered mild infiltrate or atelectasis in the mid and lower lungs. US Lower Extremity Venous Duplex Bilateral Narrative EXAM: US LOWER EXTREMITY VENOUS DUPLEX BILATERAL LOCATION: [facility] DATE/TIME: 04/28/2021 11:41 PM INDICATION: LE edema COMPARISON: None. TECHNIQUE: Venous Duplex ultrasound of bilateral lower extremities with and without compression, augmentation and duplex. Color flow and spectral Doppler with waveform analysis performed. FINDINGS: Exam includes the common femoral, femoral, popliteal veins as well as segmentally visualized deep calf veins and greater saphenous vein. RIGHT: No deep vein thrombosis. No superficial thrombophlebitis. No popliteal cyst. LEFT: No deep vein thrombosis. No superficial thrombophlebitis. No popliteal cyst. Impression IMPRESSION: 1. No deep venous thrombosis in the bilateral lower extremities. Medications ??? - MEDICATION INSTRUCTIONS - ??? sodium chloride 100 mL/hr at 04/29/21 0611 ??? amLODIPine 10 mg Oral Daily ??? aspirin 324 mg Oral or NG Tube Daily ??? azithromycin 500 mg Intravenous Q24H ??? cefTRIAXone 2 g Intravenous Q24H ??? cyanocobalamin 1,000 mcg Oral Daily ??? famotidine 20 mg Oral BID AC ??? ferrous sulfate 140 mg Oral Daily ??? gabapentin 300 mg Oral BID ??? hydrALAZINE 10 mg Oral TID ??? insulin aspart Subcutaneous TID w/meals ? ? insulin aspart 1-7 Units Subcutaneous 4x Daily AC & HS ??? insulin glargine 55 Units Subcutaneous At Bedtime ??? lidocaine (PF) 10 mL Subcutaneous Once ??? sertraline 50 mg Oral QPM ??? sodium chloride (PF) 3 mL Intracatheter Q8H Ashlee Alvarez RN - 04/28/2021 8:47 PM CDT RECEIVING UNIT ED HANDOFF REVIEW ED Nurse Handoff Report was reviewed by: Ashlee Alvarez RN on April 28, 2021 at 8:47 PM documented in this encounter H&P Notes Faisal Rojas MD - 04/28/2021 7:02 PM CDT Admitted: 04/28/2021 HISTORY OF PRESENT ILLNESS: This is a 70-year-old male with history of hypertension, diabetes mellitus type 2, peripheral vascular disease, coronary artery disease, status post CABG on 04/19/2021 and was discharged on 04/25/2021; hyperlipidemia, chronic kidney disease stage III, restless leg syndrome,possible obstructive sleep apnea, comes to the ER with complaint of weakness, not feeling well and dizzy. According to the patient, he told me after the surgery, he did well and was on the day of discharge 04/25/2021, he was doing well and went home and had no problem. The next day, he started feeling somewhat weakness in his legs, and he seems like he is feeling wobbly when he is walking, and he says hiscalves are not strong enough to bear his weight, and he was holding to his , but never passed out or dizzy or lightheaded. He come to the ER yesterday, 04/27/2021 for evaluation for the weakness. At that time, chest x-ray was done, which was suggestive of possible pneumonia, was started on doxycycline and a few days of Lasix, as he was having lower extremity edema and was sent home. Today again, he felt the same way. Sometimes he walks without any problems, sometimes he has become wobbly and unable to bear weight, and his calves feel like they are weak. He felt nauseous this morning and not feeling well, so he came to the ER. In the ER today, again, he at times had become hypoxic, saturation dropped to 87-89%. Was put on 2 liters was bradycardic and D-dimer was checked and was elevated. CT scan of the chest PE protocol was ordered by the ER physician and on checking his creatinine, it increased from 1.67 yesterday 2.16. So the Hospitalist service was consulted to admit the patient. ASSESSMENT AND PLAN: 1. Generalized weakness: This is multifactorial. The patient is on high doses of gabapentin. He usedabout 1200 mg, this was recently increased. He is on multiple antihypertensive medications. His creatinine has been increasing from 1.34 at the time of discharge to 2.16. So, acute on chronic renal failure as well as anemia. His hemoglobin dropped to 7.8 today. At this time, I will check his procalcitonin level. I will check a CPK. Orthostatic blood pressure will need to be checked. We will start himon IV fluids. CT scan of the chest is ordered by the ER physician, has been pending at this time. Concern for contrast-induced nephropathy. He was given 2 liters of IV fluids before the contrast by theED physician and he wanted to do it. Other thing I think his kidney function is worsening. He has been taking higher doses of gabapentin at night for his restless leg syndrome. I will cut down on his gabapentin from 1200 mg to 300 mg b.i.d. He takes 600 mg at 8:30 p.m. and 600 at bedtime. Most likely that may be causing his ataxia, wobbly nature or generalized weakness of his legs getting worsening renal failure. PT, OT and social work administrator will be consulted. We will recheck CT head and go from there. I will go ahead and do the ultrasound of the bilateral lower extremities to rule out DVT as well. He has no focal weakness on exam, power is 5/5 in all extremities. 2. Acute on chronic renal failure. Creatinine 1.4 at baseline . At the time of discharge was 1.34, increased to 1.67 when checked on 04/27/2021. He was given 20 of Lasix. His lisinopril was decreased from 40 to 20 yesterday. Now 2.16. Most likely related to lisinopril as well as a dose of Lasix. We will hold the Lasix now. Hold the lisinopril, start him on IV fluids normal saline 100 mL per hour and repeat creatinine in the morning. Did discuss with him with contrast, there is risk of worsening kidney function. The patient is agreeable for doing the CT scan chest, as per the ED physician. 3. Acute blood loss anemia: The patient's hemoglobin is 7.8, right now. No need for blood transfusion as it is dropping from 8.8 to 7.81 grams in the last three days. No active bleeding at this time. We will keep an eye on it. I will check serum iron, ferritin, transferrin B12 and folic acid level as well. 4. Possible pneumonia versus left-sided pleural effusion: Chest x-ray done yesterday read as a possible pneumonia. We are doing a CT scan chest here. Most likely, he has a pleural effusion, rather thanthe pneumonia. He was started on antibiotics. I will check procalcitonin level. I will keep him on IV antibiotics, ceftriaxone and azithromycin at this time. If no sign of pneumonia on the CT chest, wecan discontinue the antibiotics. 5. Hypertension: Has been reasonably controlled. We will hold the lisinopril at this time given renal failure. Continue amlodipine. Continue Coreg. Keep him on p.r.n. hydralazine for systolic blood pressure more than 160. We will see how he does. 6. Sinus bradycardia: His heart rate is on the lower side 50s. This may this may be secondary to clonidine and Coreg, and there is not much variation when he stands up. So, I will discontinue clonidineat this time. We will continue the Coreg at the same doses. May need to decrease if continues to be bradycardic. 7. Lower extremity edema: I think this is secondary to amlodipine as well as being on higher doses of gabapentin. We will ask for her lower extremity compression stockings. 8. Coronary artery disease, status post coronary artery bypass grafting x3: We will do the courtesy consult to the Cardiovascular Surgery, as the patient readmitted within three days of their discharge. 9. Restless leg syndrome: Decrease the gabapentin to 300 mg b.i.d. 10. Diabetes mellitus type 2: He is on Lantus 70 units at night. We will keep him on that. I will start him on sliding scale insulin for correction and hypoglycemia protocol. 11. Hyperlipidemia: He is on Crestor. We will hold Crestor for now, check CPK. If the CPK comes backnormal, we can restart the Crestor in the morning. 12. Deep venous thrombosis prophylaxis with SCDs. CODE STATUS: FULL CODE. The case discussed with ER physician and the nursing staff taking care of the patient. Faisal Rojas MD MT: [id number] Name: CECI LIND Account: [id number] : 1950 Admitted: 04/28/2021 Document: [id number] Faisal Rojas MD - 04/28/2021 6:48 PM CDT [facility] History and Physical Hospitalist Date of Admission: 04/28/2021 Assessment & Plan This is a 70-year-old male with history of hypertension, diabetes mellitus type 2, peripheral vascular disease, coronary artery disease, status post CABG on 04/19/2021 and was discharged on 04/25/2021;hyperlipidemia, chronic kidney disease stage III, restless leg syndrome, possible obstructive sleep apnea, comes to the ER with complaint of weakness, not feeling well and dizzy. ASSESSMENT AND PLAN: 1. Generalized weakness: This is multifactorial. The patient is on high doses of gabapentin. He usedabout 1200 mg, this was recently increased. He is on multiple antihypertensive medications. His creatinine has been increasing from 1.34 at the time of discharge to 2.16. So, acute on chronic renal failure as well as anemia. His hemoglobin dropped to 7.8 today. At this time, I will check his procalcitonin level. I will check a CPK. Orthostatic blood pressure will need to be checked. We will start himon IV fluids. CT scan of the chest is ordered by the ER physician, has been pending at this time. Concern for contrast-induced nephropathy. He was given 2 liters of IV fluids before the contrast by theED physician and he wanted to do it. Other thing I think his kidney function is worsening. He has been taking higher doses of gabapentin at night for his restless leg syndrome. I will cut down on his gabapentin from 1200 mg to 300 mg b.i.d. He takes 600 mg at 8:30 p.m. and 600 at bedtime. Most likely that may be causing his ataxia, wobbly nature or generalized weakness of his legs getting worsening renal failure. PT, OT and social work administrator will be consulted. We will recheck CT head and go from there. I will go ahead and do the ultrasound of the bilateral lower extremities to rule out DVT as well. He has no focal weakness on exam, power is 5/5 in all extremities. 2. Acute on chronic renal failure. Creatinine 1.4 at baseline . At the time of discharge was 1.34, increased to 1.67 when checked on 04/27/2021. He was given 20 of Lasix. His lisinopril was decreased from 40 to 20 yesterday. Now 2.16. Most likely related to lisinopril as well as a dose of Lasix. We will hold the Lasix now. Hold the lisinopril, start him on IV fluids normal saline 100 mL per hour and repeat creatinine in the morning. Did discuss with him with contrast, there is risk of worsening kidney function. The patient is agreeable for doing the CT scan chest, as per the ED physician. 3. Acute blood loss anemia: The patient's hemoglobin is 7.8, right now. No need for blood transfusion as it is dropping from 8.8 to 7.81 grams in the last three days. No active bleeding at this time. We will keep an eye on it. I will check serum iron, ferritin, transferrin B12 and folic acid level as well. 4. Possible pneumonia versus left-sided pleural effusion: Chest x-ray done yesterday read as a possible pneumonia. We are doing a CT scan chest here. Most likely, he has a pleural effusion, rather thanthe pneumonia. He was started on antibiotics. I will check procalcitonin level. I will keep him on IV antibiotics, ceftriaxone and azithromycin at this time. If no sign of pneumonia on the CT chest, wecan discontinue the antibiotics. 5. Hypertension: Has been reasonably controlled. We will hold the lisinopril at this time given renal failure. Continue amlodipine. Continue Coreg. Keep him on p.r.n. hydralazine for systolic blood pressure more than 160. We will see how he does. 6. Sinus bradycardia: His heart rate is on the lower side 50s. This may this may be secondary to clonidine and Coreg, and there is not much variation when he stands up. So, I will discontinue clonidineat this time. We will continue the Coreg at the same doses. May need to decrease if continues to be bradycardic. 7. Lower extremity edema: I think this is secondary to amlodipine as well as being on higher doses of gabapentin. We will ask for her lower extremity compression stockings. 8. Coronary artery disease, status post coronary artery bypass grafting x3: We will do the courtesy consult to the Cardiovascular Surgery, as the patient readmitted within three days of their discharge. 9. Restless leg syndrome: Decrease the gabapentin to 300 mg b.i.d. 10. Diabetes mellitus type 2: He is on Lantus 70 units at night. We will keep him on that. I will start him on sliding scale insulin for correction and hypoglycemia protocol. 11. Hyperlipidemia: He is on Crestor. We will hold Crestor for now, check CPK. If the CPK comes backnormal, we can restart the Crestor in the morning. 12. Deep venous thrombosis prophylaxis with SCDs. CODE STATUS: FULL CODE. The case discussed with ER physician and the nursing staff taking care of the patient. Faisal Rojas MD DVT Prophylaxis: Pneumatic Compression Devices Code Status: Full Code Disposition: Expected discharge in 2 days once stable. Faisal Rojas MD Primary Care Physician Anatoliy Ortiz Chief Complaint Lower extremity weakness, nausea, not feeling well. History is obtained from the patient History of Present Illness Admitted: 04/28/2021 HISTORY OF PRESENT ILLNESS: This is a 70-year-old male with history of hypertension, diabetes mellitus type 2, peripheral vascular disease, coronary artery disease, status post CABG on 04/19/2021 and was discharged on 04/25/2021; hyperlipidemia, chronic kidney disease stage III, restless leg syndrome,possible obstructive sleep apnea, comes to the ER with complaint of weakness, not feeling well and dizzy. According to the patient, he told me after the surgery, he did well and was on the day of discharge 04/25/2021, he was doing well and went home and had no problem. The next day, he started feeling somewhat weakness in his legs, and he seems like he is feeling wobbly when he is walking, and he says hiscalves are not strong enough to bear his weight, and he was holding to his , but never passed out or dizzy or lightheaded. He come to the ER yesterday, 04/27/2021 for evaluation for the weakness. At that time, chest x-ray was done, which was suggestive of possible pneumonia, was started on doxycycline and a few days of Lasix, as he was having lower extremity edema and was sent home. Today again, he felt the same way. Sometimes he walks without any problems, sometimes he has become wobbly and unable to bear weight, and his calves feel like they are weak. He felt nauseous this morning and not feeling well, so he came to the ER. In the ER today, again, he at times had become hypoxic, saturation dropped to 87-89%. Was put on 2 liters was bradycardic and D-dimer was checked and was elevated. CT scan of the chest PE protocol was ordered by the ER physician and on checking his creatinine, it increased from 1.67 yesterday 2.16. So the Hospitalist service was consulted to admit the patient. Past Medical History I have reviewed this [...] Darwin Valero MD; Location[facility] ??? CV INSTANTANEOUS WAVE-FREE RATIO N/A 03/13/2021 Procedure: Instantaneous Wave-Free Ratio; Surgeon: Darwin Valero MD; Location: [facility] ??? HC LEFT HEART CATHETERIZATION 04/01/2016 mild [...] Blood Gluc Sensor (DEXCOM G6 SENSOR) MISC Yes No HEMP OIL OR EXTRACT OR OTHER CBD CANNABINOID, NOT MEDICAL CANNABIS, Self Yes No Sig: Apply 1 Application topically 2 times daily as needed (Arthritis on right knee and wrist) ONE TOUCH ULTRA TEST STRP No No Sig: as directed Polyethylene Glycol 400 (BLINK TEARS OP) Self Yes No Sig: Place 1 drop into both eyes daily as needed SYRINGE B-D MICRO FINE 1/2 CC SYRINGES No No Sig: as directed Turmeric 500 MG CAPS Self Yes No Sig: Take 1 capsule by mouth every morning acetaminophen (TYLENOL) 325 MG tablet No No Sig: Take 2 tablets (650 mg) by mouth every 4 hours as needed for mild pain amLODIPine (NORVASC) 10 MG tablet No No Sig: Take 1 tablet (10 mg) by mouth daily aspirin (ASA) 81 MG chewable tablet No No Si tablets (324 mg) by Oral or NG Tube route daily carvedilol (COREG) 6.25 MG tablet Self No No Sig: Take 1 tablet (6.25 mg) by mouth 2 times daily (with meals) cloNIDine (CATAPRES) 0.1 MG tablet No No Sig: Take 1 tablet (0.1 mg) by mouth 2 times daily cyanocobalamin (VITAMIN B-12) 1000 MCG tablet Self Yes No Sig: Take 1,000 mcg by mouth daily doxycycline hyclate (VIBRAMYCIN) 100 MG capsule No No Sig: Take 1 capsule (100 mg) by mouth 2 times daily for 10 days famotidine (PEPCID) 20 MG tablet No No Sig: Take 1 tablet (20 mg) by mouth 2 times daily for 14 days ferrous sulfate 140 (45 Fe) MG TBCR CR tablet No No Sig: Take 1 tablet (140 mg) by mouth daily furosemide (LASIX) 20 MG tablet No No Sig: Take 1 tablet (20 mg) by mouth daily for 3 days gabapentin (NEURONTIN) 300 MG capsule Self Yes No Sig: Take 600 mg by mouth 2 times daily At 8:30pm and at bedtime insulin glargine (LANTUS VIAL) 100 UNIT/ML vial No No Sig: Inject 70 Units Subcutaneous At Bedtime insulin lispro (HUMALOG) 100 UNIT/ML vial No No Si unit insulin for 5 carb units plus sliding scale as below: For Pre-Meal BG 150 - 199 give 2 unit. For Pre-Meal BG 200 - 249 give 4 units. For Pre-Meal BG 250 - 299 give 6 units. For Pre-Meal BG 300 - 349 give 8 units. For Pre-Meal BG greater than 350 - give 10 units. lisinopril (ZESTRIL) 40 MG tablet No No Sig: Take 1 tablet (40 mg) by mouth daily melatonin 3 MG CAPS Self Yes No Sig: Take 3 mg by mouth At Bedtime methocarbamol (ROBAXIN) 500 MG tablet No No Sig: Take 1 tablet (500 mg) by mouth every 6 hours as needed for muscle spasms oxyCODONE (ROXICODONE) 5 MG tablet No No Sig: Take 1-2 tablets (5-10 mg) by mouth every 4 hours as needed for moderate to severe pain polyethylene glycol (MIRALAX) 17 GM/Dose powder No No Sig: Take 17 g by mouth daily rosuvastatin (CRESTOR) 40 MG tablet Self No No Sig: Take 1 tablet (40 mg) by mouth every evening senna-docusate (SENOKOT-S/PERICOLACE) 8.6-50 MG tablet No No Sig: Take 1 tablet by mouth 2 times daily as needed for constipation sertraline (ZOLOFT) 50 MG tablet Self Yes No Sig: Take 50 mg by mouth daily Sleep doctor recommends taking at bedtime Facility-Administered Medications: None Allergies Allergies Allergen Reactions ??? Atorvastatin Other (See Comments) Congestion ??? Epinephrine Palpitations Social History I have reviewed this patient's social history and updated it with pertinent information if needed. Ceci Lind reports that he quit smoking about 49 years ago. His smoking use included cigarettes. He quit after 2.00 years of use. He has never used smokeless tobacco. He reports current alcohol use. He reports that he does not use drugs. Family History I have reviewed this patient's family history and updated it with pertinent information if needed. Family History Problem Relation Age of Onset ??? Hypertension Mother ??? Diabetes Maternal Grandmother ??? Hypertension Maternal Grandmother ??? Hypertension Maternal Grandfather Review of Systems CONSTITUTIONAL: positive for fatigue and malaise EYES: negative HEENT: negative RESPIRATORY: positive for dyspnea CARDIOVASCULAR: negative GASTROINTESTINAL: negative GENITOURINARY: negative INTEGUMENT/BREAST: negative HEMATOLOGIC/LYMPHATIC: negative ALLERGIC/IMMUNOLOGIC: negative ENDOCRINE: negative MUSCULOSKELETAL: positive for Calf pain NEUROLOGICAL: negative BEHAVIOR/PSYCH: negative Physical Exam Temp: 98.1 ??F (36.7 ??C) Temp src: Temporal BP: 133/51 Pulse: 52 Resp: 21 SpO2: 97 % O2 Device: Nasal cannula Oxygen Delivery: 2 LPM Vital Signs with Ranges Temp: [98.1 ??F (36.7 ??C)] 98.1 ??F (36.7 ??C) Pulse: [49-55] 52 Resp: [11-23] 21 BP: (123-152)/(40-64) 133/51 SpO2: [87 %-97 %] 97 % 223 lbs 0 oz Constitutional: Awake, alert, cooperative, no apparent distress. Eyes: Conjunctiva and pupils examined and normal. HEENT: Moist mucous membranes, normal dentition. Respiratory: diminished air entry bilaterally, no crackles or wheezing. Cardiovascular: bradycardic but regular rhythm, normal S1 and S2, and no murmur noted. GI: Soft, non-distended, non-tender, normal bowel sounds. Lymph/Hematologic: No anterior cervical or supraclavicular adenopathy. Skin: No rashes, no cyanosis, 2+ edema. Musculoskeletal: No joint swelling, erythema or tenderness. Neurologic: Cranial nerves 2-12 intact, normal strength and sensation. Psychiatric: Alert, oriented to person, place and time, no obvious anxiety or depression. Data Data reviewed today: I personally reviewed the EKG tracing showing sinus bradycardia, no acute ischemic changes. . Recent Labs Lab 04/28/21 1550 04/27/21 1348 04/25/21 1004 WBC 11.0 11.8* 10.7 HGB 7.8* 8.1* 8.8* MCV 94 94 91 PLT 262 252 254 NA 141 142 144 POTASSIUM 4.8 4.5 4.2 CHLORIDE 111* 110* 112* CO2 25 26 29 BUN 55* 54* 56* CR 2.16* 1.67* 1.34* ANIONGAP 5 6 3 RICHIE 8.2* 8.5 8.5 GLC 153* 131* 261* ALBUMIN 2.4* -- -- PROTTOTAL 5.9* -- -- BILITOTAL 0.3 -- -- ALKPHOS 64 -- -- ALT 34 -- -- AST 22 -- -- TROPONIN 0.050* 0.066* -- No results found for this or any previous visit (from the past 24 hour(s)). documented in this encounter Procedure Notes Yvan Jones MD - 04/29/2021 3:15 PM CDTAssociated Order(s): IR Procedure Note [facility] Procedure: IR Procedure Note Date/Time: 04/29/2021 3:15 PM Performed by: Yvan Jones MD Authorized by: Yvan Jones MD UNIVERSAL PROTOCOL Site Marked: NA Prior Images Obtained and Reviewed: Yes Required [...] the procedure a time out was called Wesson Protocol: the Joint Commission [place] Protocol was followed Preparation: Patient was prepped and draped in usual sterile fashion ANESTHESIA Anesthesia: Local infiltration Local Anesthetic: Lidocaine 1% without epinephrine SEDATION Patient Sedated: No See dictated procedure note for full details. Findings: Moderate left pleural effusion Specimens: none Complications: None Condition: Stable PROCEDURE Patient Tolerance: Patient tolerated the procedure well with no immediate complications Length of time physician/provider present for 1:1 monitoring during sedation: 0 documented in this encounter Consult Notes Yelena Peña RN - 04/30/2021 3:14 PM CDTAssociated Order(s): CARE MANAGEMENT / SOCIAL WORK IP CONSULT Care Management Initial Consult General Information Assessment completed with: Patient, Type of CM/SW Visit: Initial Assessment Primary Care Provider verified and updated as needed: Yes Readmission within the last 30 days: previous discharge plan unsuccessful Return Category: Post-op/Post-procedure complication Reason for Consult: discharge planning Advance Care Planning: Communication Assessment Patient's communication style: spoken language (Fijian or Bilingual) Hearing Difficulty or Deaf: no Wear Glasses or Blind: yes Cognitive Cognitive/Neuro/Behavioral: WDL Level of Consciousness: alert Orientation: oriented x 4 Mood/Behavior: calm, cooperative Best Language: 0 - No aphasia Speech: clear, spontaneous Living Environment: People in home: Current living Arrangements: house Able to return to prior arrangements: Family/Social Support: Care provided by: Provides care for: Description of Support System: Current Resources: Patient receiving home care services: Community Resources: Equipment currently used at home: none Supplies currently used at home: Employment/Financial: Employment Status: Financial Concerns: Lifestyle & Psychosocial Needs: Social Determinants of Health Tobacco Use: Medium Risk ??? Smoking Tobacco Use: Former Smoker ??? Smokeless Tobacco Use: Never Used Alcohol Use: ??? Frequency of Alcohol Consumption: ??? Average Number of Drinks: ??? Frequency of Binge Drinking: Financial Resource Strain: ??? Difficulty of Paying Living Expenses: Food Insecurity: ??? Worried About Running Out of Food in the Last Year: ??? Ran Out of Food in the Last Year: Transportation Needs: ??? Lack of Transportation (Medical): ??? Lack of Transportation (Non-Medical): Physical Activity: ??? Days of Exercise per Week: ??? Minutes of Exercise per Session: Stress: ??? Feeling of Stress : Social Connections: ??? Frequency of Communication with Friends and Family: ??? Frequency of Social Gatherings with Friends and Family: ??? Attends Spiritism Services: ??? Active Member of Clubs or Organizations: ??? Attends Club or Organization Meetings: ??? Marital Status: Intimate Partner Violence: ??? Fear of Current or Ex-Partner: ??? Emotionally Abused: ??? Physically Abused: ??? Sexually Abused: Depression: Not at risk ??? PHQ-2 Score: 1 Housing Stability: ??? Unable to Pay for Housing in the Last Year: ??? Number of Places Lived in the Last Year: ??? Unstable Housing in the Last Year: Functional Status: Prior to admission patient needed assistance: Mental Health Status: Chemical Dependency Status: Values/Beliefs: Spiritual, Cultural Beliefs, Spiritism Practices, Values that affect care: Additional Information: Splitter Machine met with patient at bedside and explained role in discharge planning. Patient does not currently have HHC, therapy recommends home with assist. Cardiac follow up and out patient PT appointments have been made and patient is aware. No additional needs identified. Yelena Peña RN Care Management Discharge Note Discharge Date: 05/01/2021 Discharge Disposition: Home Discharge Transportation: family or friend will provide Yelena Peña RN documented in this encounter ED Notes Daphnie Rose RN - 04/28/2021 6:59 PM CDT [facility] ED Nurse Handoff Report ED Chief complaint: Fall ED Diagnosis: Final diagnoses: Weakness of both legs Near syncope Anemia, unspecified type Code Status: Full Code Allergies: Allergies Allergen Reactions ??? Atorvastatin Other (See Comments) Congestion ??? Epinephrine Palpitations Patient Story: Pt presents from home with for increased weakness, dizziness and falls. Pt seen here yesterday after multiple falls in one day and then today having episode of dizziness and feelingunsteady on his feet. Pt had recent CABG and has had his BP/HR medications changed recently and had his lasix increased- this has all been changed as pt was dizzy/falling. Pt here having HR in the 49-55 bpm range, orthostatics negative. Trop elevated yesterday and now trending down but rise in creatnine. Head CT and chest CT being performed in ED Focused Assessment: A/ox4, stand by assist, vss Treatments and/or interventions provided: blood work, imaging, ekg Patient's response to treatments and/or interventions: tolerating well To be done/followed up on inpatient unit: inpt orders, cards consult Does this patient have any cognitive concerns?: none Activity level - Baseline/Home: Independent Activity Level - Current: Stand with Assist Patient's Preferred language: Fijian Home Manager Needed?: No Isolation: None Infection: Not Applicable Patient tested for COVID 19 prior to admission: YES Bariatric?: No Vital Signs: Vitals: 04/28/21 1700 04/28/21 1715 04/28/21 1730 04/28/21 1745 BP: 136/64 133/51 Pulse: 51 (!) 49 52 52 Resp: 18 20 19 21 Temp: TempSrc: SpO2: 96% 90% 95% 97% Weight: Height: Cardiac Rhythm: Was the PSS-3 completed: Yes What interventions are required if any? Family Comments: present OBS brochure/video discussed/provided to patient/family: N/A Name of person given brochure if not patient: n/a Relationship to patient: n/a For the majority of the shift this patient's behavior was Green. Behavioral interventions performed were none. ED NURSE PHONE NUMBER: *[id number] Daphnie Rose RN - 04/28/2021 6:45 PM CDT Pt's meal tray arrived and pt needs insulin- pt takes insulin lispro, humalog, at home. Pt checked his glucose on home meter and it reports 125. Pt refusing to let ED staff take his glucose because he states you people don't know how to do it here RN verified the 125. Pt has 60 carbs on his dinner plate and his meter states he should take 14 units. RN put in order for insulin Dangelo Albarran RN - 04/28/2021 3:13 PM CDT Patient fell again today outside, weakness in knees. Patient seen yesterday for falls as well. Patient had bypass on the . Edmundo Granda MD - 04/28/2021 3:08 PM CDT History Chief Complaint: Fall The history is provided by the patient. Ceci Lind is a 70 year old male with history of s/p coronary angiogram, CAD, PVD, angina pectoris, hypertension, type II diabetes, and stage chronic renal insufficiency who presents with concerns about frequent falls. The patient was seen here in the ED yesterday since he had fallen three times, three days in a row. He felt as though his legs would just suddenly give out and he would become too weak to support himself. During this visit, it was determined that he was taking too much lisinopril,which he has had troubles with in the past. Today, he feels as though he is unable to balance. This morning, he went outside to speak to a neighbor which involved him walking down the steps, crossing the yard, and walking on a gravel road. When he got the gravel road, he could no longer balance and fell over. His neighbors and his helped him up, and in order to walk home, he had to heavily lean on his for support. This afternoon, he went to hand picker his prescription and had a similar episode of balance difficulty after getting out of his car, walking up steps and turning a corner. These are the only two incidents he has experienced of this nature. His reports that he would have fallen a third time today when he was walking into the ED; after walking some steps, he needed to lean on a post and then required a wheelchair to make it the rest of the way in to the ED. His is also concerned cause she feels that his speech sounds slower. The patient also reports that positional changes really trigger this episode of balance difficulties. Ceci is frustrated about this issue, since he initially felt strong after his surgery, but now he feels that he is declining due to the spells of weakness and sudden loss of balance. Review of Systems Neurological: Positive for weakness. (+) balance difficulty All other systems reviewed and are negative. Allergies: Atorvastatin Epinephrine Medications: Norvasc Aspirin 81 mg Coreg Catapres Dexcom G6 sensor Vibramycin Pepcid Lasix Neurontin Lantus vial Humalog Zestril Melatonin Robaxin Roxicodone Miralax Crestor Senokot-S/Pericolace Zoloft Past Medical History: Angina pectoris Cancer CAD involving mohegan coronary artery of mohegan heart without angina pectoris Type II diabetes Polyneuropathy in diabetes Pure hypercholesterolemia PVD Hypertension Abnormal stress test Dyspnea on exertion Chronic renal insufficiency, stage 3 Claudication of both lower extremities Past Surgical History: Angiogram Bypass graft artery coronary Coronary angiography adult order CV coronary angiogram CV instantaneous wave-free ratio HC left heart catheterization [place] teeth extractions Sebaceous cyst removal (head & neck surgery) Heart cath coronary angiogram W/LV gram Family History: Mother: hypertension Social History: PCP: Anatoliy Ortiz Presents with his Physical Exam Patient Vitals for the past 24 hrs: BP Temp Temp src Pulse Resp SpO2 Height Weight 04/28/21 1745 -- -- -- 52 21 97 % -- -- 04/28/21 1730 133/51 -- -- 52 19 95 % -- -- 04/28/21 1715 -- -- -- (!) 49 20 90 % -- -- 04/28/21 1700 136/64 -- -- 51 18 96 % -- -- 04/28/21 1634 -- -- -- 50 21 96 % -- -- 04/28/21 1633 -- -- -- 51 11 90 % -- -- 04/28/21 1632 -- -- -- 50 18 (!) 89 % -- -- 04/28/21 1631 -- -- -- 50 20 (!) 87 % -- -- 04/28/21 1630 132/59 -- -- 51 20 92 % -- -- 04/28/21 1625 -- -- -- 52 17 95 % -- -- 04/28/21 1604 (!) 152/55 -- -- 54 15 95 % -- -- 04/28/21 1603 134/53 -- -- 53 23 96 % -- -- 04/28/21 1602 134/53 -- -- 53 20 95 % -- -- 04/28/21 1601 -- -- -- 54 15 94 % -- -- 04/28/21 1600 (!) 142/61 -- -- 55 16 95 % -- -- 04/28/21 1511 123/40 98.1 ??F (36.7 ??C) Temporal 52 16 97 % 1.803 m (5' 11) 101.2 kg (223 lb) Physical Exam Vitals and nursing note reviewed. HENT: Head: Normocephalic. Nose: Nose normal. Mouth/Throat: Mouth: Mucous membranes are moist. Eyes: Pupils: Pupils are equal, round, and reactive to light. Cardiovascular: Rate and Rhythm: Regular rhythm. Bradycardia present. Comments: There is a midline sternotomy scar consistent with recent history of surgery. No secondary infection no dehiscence Pulmonary: Effort: Pulmonary effort is normal. Abdominal: General: Abdomen is flat. Palpations: Abdomen is soft. Skin: General: Skin is warm. Capillary Refill: Capillary refill takes less than 2 seconds. Neurological: General: No focal deficit present. Mental Status: He is alert and oriented to person, place, and time. Psychiatric: Thought Content: Thought content normal. Emergency Department Course ECG ECG taken at 1600, ECG read at 1602 Sinus bradycardia. Nonspecific T wave abnormality. Abnormal ECG. Rate 55 bpm. GA interval 135 ms. QRS duration 100 ms. QT/QTc 422/403 ms. P-R-T axes 65 58 82. Imaging: CT Chest Pulmonary Embolism with IV Contrast: 1. No pulmonary embolism. 2. New sternotomy with postsurgical changes of CABG. New moderate sized left and small right pleuraleffusion with left basilar consolidation. Scattered mild infiltrate or atelectasis in the mid and lower lungs. As per radiology. CT Head without IV Contrast: 1. 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 No definite acute infarct. 2. Mild atrophy. As per radiology. Laboratory: D [facility] Quantitative: 2.39 (H) CMP: Chloride 111 (H), Urea Nitrogen 55 (H), Creatinine 2.16 (H), Calcium 8.2 (L), Glucose 153 (H), Protein Total 5.9 (L), Albumin 2.4 (L), GFR Estimate 30 (L) o/w WNL (1550) Troponin: 0.050 (H) Procalcitonin: <0.05 CBC: WBC 11.0, HGB 7.8 (L), PLT 262 Asymptomatic SARS-CoV2 (COVID-19) virus by PCR: negative Emergency Department Course: Reviewed: I reviewed nursing notes, vitals, past medical history and care everywhere Assessments: 1538 I obtained history and examined the patient as noted above. 1700 I rechecked the patient and explained findings. 175 I updated the patient on new findings and explained next steps. Consults: 1854 I spoke with hospitalist Dr. Rojas about the patient's condition and need for admission Interventions: 1720 Normal Saline 500 mL IV 1910 Insulin aspart injection 14 units subcutaneous 1913 Normal saline 1,000 mL IV Disposition: The patient was admitted to the hospital under the care of Dr. Rojas. Impression & Plan Medical Decision Making: Patient presents with episodes of weakness of his legs and dizziness. Very challenging to ascertain the type of dizziness he is describing does not really sound like near syncope with patient is noted to be significantly bradycardic. EKG shows sinus bradycardia. Patient has recent surgery has felt short of breath D-dimer is elevated but CT for PE is negative. Noncontrast CT of the head does identify a cerebellar infarct unclear whether this is new or old patient is recently initiated on antibiotics for pneumonia but doubt this due to negative procalcitonin suspect more pleural effusions based on CTscan. Regardless due to patient's recent complicated medical history will recommend admission for nakita gical consultation postoperatively as well as consider thoracentesis for pleural fluid due to shortness of breath as well as consider MRI of the brain to ascertain if the CT scan finding is acute or chronic. Care was discussed with the hospitalist and will admit as an inpatient. Covid-19 Ceci Lind was evaluated during a global COVID-19 pandemic, which necessitated consideration that the patient might be at risk for infection with the SARS-CoV-2 virus that causes COVID-19. Applicable protocols for evaluation were followed during the patient's care. COVID-19 was considered as part of the patient's evaluation. The plan for testing is: a test was obtained during this visit. Diagnosis: ICD-10-CM 1. Weakness of both legs R29.898 2. Near syncope R55 3. Anemia, unspecified type D64.9 Scribe Disclosure: I, Teresita Ferreira, am serving as a scribe at 3:42 PM on 04/28/2021 to document services personally performed by Edmundo Granda MD based on my observations and the provider's statements to me. Edmundo Granda MD 05/01/212003 documented in this encounter Miscellaneous Notes Plan of Care - Inez Noe OT - 05/01/2021 5:39 PM CDT Occupational Therapy Discharge Summary Reason for therapy discharge: Discharged to home. Progress towards therapy goal(s). See goals on Care Plan in [facility] electronic health record for goal details. Goals partially met. Barriers to achieving goals: discharge from facility. Therapy recommendation(s): No further therapy is recommended. Plan of Care - Minerva Martinez PT - 05/01/2021 5:39 PM CDT Physical Therapy Discharge Summary Reason for therapy discharge: Discharged to home. Progress towards therapy goal(s). See goals on Care Plan in [facility] electronic health record for goal details. Goals met Therapy recommendation(s): No further therapy is recommended. Provider Notification - Mabel Pink RN - 05/01/2021 10:27 AM CDT MD Notification Notified Person: MD Notified Person Name: Issa Notification Date/Time:05/01/21 1030 Notification Interaction: Text paged Purpose of Notification:Pt wants MD to talk with cardiology and have a bp control plan. Orders Received: awaiting Comments: Plan of Care - Miguel Sheets RN - 05/01/2021 7:00 AM CDT AOx4, VSS elevated BP early on in the shift, pt given PRN IV Hydralazine x1 at shift change, Cardio-Vascular surgery recommended IV Hydralazine again, also gave PO Hydralazine and Clonidine, voids in BR w/ SBA, on intermittent abx, pt uses his own equipment for BG checks, and staff must obtain pt's readings before entering into eMAR. Requested not to be interrupted after midnight, so he could sleep (PRN melatonin given), pt slept most of night. Provider Notification - Miguel Sheets RN - 04/30/2021 8:38 PM CDT Notification Notified Person: Notified Person Name: Leodan Notification Date/Time: 04/30 @ 8:25 pm Notification Interaction: page Purpose of Notification: elevated systolic BP, unresolved w/ PRN Hydralazine. Orders Received: Call Cardio vascular. Comments: Called *[phone] and was called by Dr. Anderson -- Enlisted Advisor, who said to call CardiioVascular. Provider Notification - Patricia Cobian RN - 04/30/2021 6:50 PM CDT Notification Notified Person: Notified Person Name: Dr. Alcocer Notification Date/Time: 04/30/21 6:50 PM Notification Interaction: Text Page Purpose of Notification: BP 179/68. Cardiothoracic surgery wants SBP <140. Hospitalist increased PO hydralazine dose today. Pt is at rest currently. Orders Received: Comments: Plan of Care - Patricia Cobian RN - 04/30/2021 6:25 PM CDT Summary: fall, weakness, Post CABG 04/19/21 Date/Time:04/30/21 2073-1316 Service: Medical Behavior/Aggression tool color: Green Diagnosis: bilateral leg weakness POD#: N/A Mental Status: A&Ox4 Activity/dangle: standby assist Diet: Mod carb Pain: denies Carr/Voiding: voiding adequately. Tele/Restraints/Iso: NSR-NSB LDA: SL D/C Date: Pending Other Info: Pt uses Dexcom to report BG to Nursing staff. BG well controlled. Carb counts done by patient. BG was Low overnight so MD lowered Lantus dose. Up with PT/OT today. BP spikes to 190s after therapy. Comes back down to 150s systolic after rest. MD and cardiothoracic surgery aware, Increased Hydralazine. Spot check BP 179/68. prototype machinist paged PRN hydralazine ordered for overnight. Provider Notification - Patricia Cobian RN - 04/30/2021 1:44 PM CDT MD Notification Notified Person: MD Notified Person Name: Dr. Altamirano Notification Date/Time: 04/30/21 1:45 PM Notification Interaction: Text Page Purpose of Notification: Pt up with PT, sats above 90%, HR in 70s. Was 190s systolic when he got back to room. back to 150s after rest Cardiothoracic PA notified. She is OK with Hydralazine increase Orders Received: Comments: Plan of Care - Kings Arzate RN - 04/30/2021 5:34 AM CDT A&Ox4. VSS on 2 L O2, aracelis at times. Pt denies pain. Tele Sinus Bradycardia. 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 Thoracentesis site CDI. Uses bedside urinal appropriately. Up SBA/GB. BG management by pt's glucometer, ok per MD, pt reports BG to RN, sliding scale and carb coverage insulin per JERONIMO. Please document pt taken BG in Vital Sign flowsheet. BG at 0250 was 52, gave pt juice and crackers andBG went up to 83. IV SL. Neuros and CMS intact. Discharge pending. Continue to monitor. Plan of Care - Brooke Miller, LETICIA - 04/29/2021 11:44 PM CDT A&Ox4. VSS on RA ex HTN and bradycardic at times. Tele NSR. Started on hydralazine TID. Denies pain ex PRN Tyl x1 for back discomfort. 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 Good IS use. Uses bedside urinal appropriately. Up SBA/GB. BG management by pt's glucometer, ok per , pt reports BG to RN, loulouidi ng scale and carb coverage insulin per OCT. Please document pt taken BG in Vital Sign flowsheet. PIVSL int abx. Neuros and CMS intact. Down for thoracentesis and renal US this afternoon. Continue to monitor. Plan of Care - Pooja Mcneal, LETICIA - 04/29/2021 3:41 PM CDT A&Ox4. VSS on RA ex HTN and bradycardic at times. Tele NSR. Sched BP meds given, effective. Denies pain ex PRN Tyl x1 for back discomfort. 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 On 1 L O2, pt reports feeling SOB at times, O2 sats WDL. Incentive spirometer education given. Uses bedside urinal appropriately. Up SBA/GB. BG management by pt's glucometer, ok per , pt reports BG to RN, sliding scale and carb coverage insulin per OCT. Please document pt taken BG in Vital Sign flowsheet. PIV with NS @ 100.Neuros and CMS intact. Down for thoracentesis and renal US this afternoon. Continue to monitor. Provider Notification - Pooja Mcneal RN - 04/29/2021 9:30 AM CDT MD Notification Notified Person: MD Notified Person Name: Adarsh Notification Date/Time: 914 Notification Interaction: Paged Purpose of Notification: Pt requesting 17 units of insulin per his carb coverage calculation, pleaseadvise. BG 88, per MAR, no insulin coverage required. Pooja Aiken RN *[id number] Orders Received: Comments: Plan of Care - Ashlee Alvarez RN - 04/29/2021 6:24 AM CDT Summary: fall, weakness Date/Time: 04/28/21-04/29/21 Service: Medical Behavior/Aggression tool color: Green Diagnosis: bilateral leg weakness POD#: Mental Status: A&Ox4 Activity/dangle: standby assist, GB Diet: Mod carb Pain: denies Carr/Voiding: voiding adequately. Pt had BM at home prior to ER visit. Tele/Restraints/Iso: tele NSR 02/LDA: PIV infusing NS @ 100 mL/hr with intermittent antibiotics. On 1L O2 via NC. D/C Date: pending pt progress Other Info: Pt refuses [facility] glucometers, stated that his sugars were not controlled during his last stay at [facility]. BG 171 per pts meter. Neuros & CMS intact. Cardiovascular consult for this am. Pharmacy-Admission Medication History - Yessenia Wheeler [facility] - 04/28/2021 7:38 PM CDT Pharmacy Medication History Admission medication history interview status for the 04/28/2021 admission is complete. See [facility] admission navigator for prior to admission medications Location of Interview: Patient room Medication history sources: Patient and Surescripts, medication history note 04/23/21 Significant changes made to the medication list: Added glucagon kit Adjusted Lantus 70 units daily --> 55 units daily, lisinopril 40 mg --> 20 mg daily In the past week, patient estimated taking medication this percent of the time: greater than 90% Additional medication history information: Patient is a reliable historian. From 04/23/21 medication history note regarding patient's insulin regimen: Insulin glargine: Patient was previously injecting 74 units at bedtime. However, he was experiencingsymptomatic nighttime lows and was working with endocrinology to taper down. He decreased from 74--66--60--55--50--45 units, making a decrease every few days. The week leading up to admission he was injecting 45 units per night (with the exception of being told to take 40 units the night prior to nakita camilo). Insulin lispro: He typically is injecting 30 units (12 units from the carb ratio + 18 units from sliding scale) at breakfast and lunch and a varying amount at dinner (typically >30 units total). When asking patient about insulin regimen at this time, patient states current Lantus dose is 55 units daily, and will be reassessed in a week. Verified carb dosing and sliding scale, but stated typical injections of short-acting insulin is not always 30 units with every meal. Patient also stated if BG was >180 at bedtime, he may administer a dose of short-acting insulin based on sliding scale. Patient requested assistance at discharge in determining how many famotidine pills to remove from home supply if overall treatment length remains 14 days. Medication reconciliation completed by provider prior to medication history? Yes Time spent in this activity: 30 minutes Prior to Admission medications Medication Sig Last Dose Taking? Auth Provider acetaminophen (TYLENOL) 325 MG tablet Take 2 tablets (650 mg) by mouth every 4 hours as needed for mild pain at no doses yet taken Yes Brenda Willoughby PA-C amLODIPine (NORVASC) 10 MG tablet Take 1 tablet (10 mg) by mouth daily 04/28/2021 at AM Yes Brenda Willoughby PA-C aspirin (ASA) 81 MG chewable tablet 4 tablets (324 mg) by Oral or NG Tube route daily 04/28/2021 at AM Yes Brenda Willoughby PA-C carvedilol (COREG) 6.25 MG tablet Take 1 tablet (6.25 mg) by mouth 2 times daily (with meals) 04/28/2021 at AM Yes Fidencio Solis MD cloNIDine (CATAPRES) 0.1 MG tablet Take 1 tablet (0.1 mg) by mouth 2 times daily 04/28/2021 at AM YesBrenda Willoughby PA-C cyanocobalamin (VITAMIN B-12) 1000 MCG tablet Take 1,000 mcg by mouth daily 04/28/2021 at AM Yes Reported, Patient doxycycline hyclate (VIBRAMYCIN) 100 MG capsule Take 1 capsule (100 mg) by mouth 2 times daily for 10 days 04/28/2021 at X1 dose, just started Yes Jordan Merida MD famotidine (PEPCID) 20 MG tablet Take 1 tablet (20 mg) by mouth 2 times daily for 14 days 04/28/2021 at AM Yes Brenda Willoughby PA-C ferrous sulfate 140 (45 Fe) MG TBCR CR tablet Take 1 tablet (140 mg) by mouth daily 04/28/2021 at AM Yes Brenda Willoughby PA-C furosemide (LASIX) 20 MG tablet Take 1 tablet (20 mg) by mouth daily for 3 days 04/28/2021 at X1 dose, just started Yes Jordan Merida MD gabapentin (NEURONTIN) 300 MG capsule Take 600 mg by mouth 2 times daily At 8:30pm and at bedtime 04/27/2021 at PM Yes Reported, Patient glucagon 1 MG kit 1 mg once as needed for low blood sugar at has home supply Yes Unknown, Entered ByHistory HEMP OIL OR EXTRACT OR OTHER CBD CANNABINOID, NOT MEDICAL CANNABIS, Apply 1 Application topically 2 times daily as needed (Arthritis on right knee and wrist) 04/28/2021 at AM Yes Reported, Patient insulin glargine (LANTUS VIAL) 100 UNIT/ML vial Inject 70 Units Subcutaneous At Bedtime Patient taking differently: Inject 55 Units Subcutaneous At Bedtime 04/27/2021 at PM Yes Tj Marie MD insulin lispro (HUMALOG) 100 UNIT/ML vial [...] greater than 350 - give 10 units. 04/28/2021 at lunch Yes Cierra Marie MD lisinopril (ZESTRIL) 40 MG tablet Take 1 tablet (40 mg) by mouth daily Patient taking differently: Take 20 mg by mouth daily 04/28/2021 at AM Yes Brenda Willoughby PA-C melatonin 3 MG CAPS Take 3 mg by mouth At Bedtime 04/27/2021 at PM Yes Reported, Patient methocarbamol (ROBAXIN) 500 MG tablet Take 1 tablet (500 mg) by mouth every 6 hours as needed for muscle spasms at not yet started Yes Brenda Willoughby PA-C oxyCODONE (ROXICODONE) 5 MG tablet Take 1-2 tablets (5-10 mg) by mouth every 4 hours as needed for moderate to severe pain at not yet started Yes Brenda Willoughby PA-C polyethylene glycol (MIRALAX) 17 GM/Dose powder Take 17 g by mouth daily at not yet started Yes Brenda Willoughby PA-C Polyethylene Glycol 400 (BLINK TEARS OP) Place 1 drop into both eyes daily as needed 04/28/2021 at AMYes Reported, Patient rosuvastatin (CRESTOR) 40 MG tablet Take 1 tablet (40 mg) by mouth every evening 04/27/2021 at PM Fidencio Gorman MD senna-docusate (SENOKOT-S/PERICOLACE) 8.6-50 MG tablet Take 1 tablet by mouth 2 times daily as needed for constipation at not yet started Yes Brenda Willoughby PA-C sertraline (ZOLOFT) 50 MG tablet Take 50 mg by mouth daily Sleep doctor recommends taking at bedtime04/27/2021 at PM Yes Reported, Patient Turmeric 500 MG CAPS Take 1 capsule by mouth every morning 04/28/2021 at AM Yes Reported, Patient Continuous Blood Gluc Sensor (DEXCOM G6 SENSOR) MISC Unknown, Entered By History ONE TOUCH ULTRA TEST STRP as directed Roberto Linder MD SYRINGE B-D MICRO FINE 1/2 CC SYRINGES as directed Roberto Linder MD The information provided in this note is only as accurate as the sources available at the time of update(s) Yessenia Wheeler PharmD documented in this encounter Plan of Treatment Upcoming Encounters Date Type Specialty Care Team Description 05/15/2022 Hospital Encounter Surgery Singh Torres MD [facility] [address] [place] [address] (Wo rk) 05/15/2022 Surgery Surgery Neo Torres MD BLEPHAROPLASTY BILATERAL [place] [facility] PTOSIS REPAIR BILATERAL [address] [place] [address] (Wo rk) 06/25/2022 Ancillary Procedure Cardiology Kirk Silver MD [address] [place] [id number] (Wo rk) Scheduled Procedures Name Priority Associated Diagnoses Date/Time REPAIR, PTOSIS, BILATERAL, Dermatochalas is 05/15/2022 7:30 AM CDT WITH BILATERAL BLEPHAROPLASTY 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 REPAIR, ECTROPION, EYE, Dermatochalasis 05/15/2022 7:30 AM CDT BILATERAL 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 XR CHEST 2 VIEWS Routine 04/30/2021 12:21 Results for this PM CDT procedure are i n the results section. CATECHOLAMINES Routine 04/30/2021 7:33 AM Results for this FRACTIONATED CDT procedure are i n the results section. BASIC METABOLIC PANEL Routine 04/30/2021 7:33 AM Results for this CDT procedure are i n the results section. CBC WITH PLATELETS Routine 04/30/2021 7:33 AM Res ults for this CDT procedure are i n the results section. US RENAL COMPLETE WITH Routine 04/29/2021 4:24 PM Results for this DOPPLER COMPLETE CDT procedure a re in the results section. US THORACENTESIS Routine 04/29/2021 3:53 PM Resul ts for this CDT procedure are i n the results section. IR PROCEDURE NOTE Routine 04/29/2021 3:15 PM Resu lts for this CDT procedure are i n the results section. CBC WITH PLATELETS AND Routine 04/29/2021 7:08 AM Results for this DIFFERENTIAL CDT procedure are i n the results section. CBC WITH PLATELETS & Routine 04/29/2021 7:08 AM R esults for this DIFFERENTIAL CDT procedure are i n the results section. HEMOGLOBIN A1C Routine 04/29/2021 7:08 AM Results for this CDT procedure are i n the results section. COMPREHENSIVE METABOLIC Routine 04/29/2021 7:08 AM Results for this PANEL CDT procedure are i n the results section. US LOWER EXTREMITY STAT 04/29/2021 12:05 Resul ts for this VENOUS DUPLEX BILATERAL AM CDT proc edure are in the results section. PROCALCITONIN STAT 04/28/2021 10:44 Results fo r this PM CDT procedure are i n the results section. TRANSFERRIN STAT 04/28/2021 10:44 Results for this PM CDT procedure are i n the results section. IRON AND IRON BINDING STAT 04/28/2021 10:44 Re sults for this CAPACITY PM CDT procedure are i n the results section. HEMOGLOBIN A1C Routine 04/28/2021 10:44 Results f or this PM CDT procedure are i n the results section. FOLATE STAT 04/28/2021 10:44 Results for this PM CDT procedure are i n the results section. FERRITIN STAT 04/28/2021 10:44 Results for this PM CDT procedure are i n the results section. CK TOTAL STAT 04/28/2021 10:44 Results for this PM CDT procedure are i n the results section. VITAMIN B12 STAT 04/28/2021 10:44 Results for this PM CDT procedure are i n the results section. COVID-19 VIRUS STAT 04/28/2021 7:14 PM Results for this (CORONAVIRUS) BY PCR CDT procedu re are in the results section. CT CHEST PULMONARY STAT 04/28/2021 7:07 PM Res ults for this EMBOLISM W CONTRAST CDT procedur e are in the results section. CT HEAD W/O CONTRAST STAT 04/28/2021 7:06 PM R esults for this CDT procedure are i n the results section. D DIMER QUANTITATIVE STAT 04/28/2021 5:26 PM R esults for this CDT procedure are i n the results section. EKG 12-LEAD, TRACING STAT 04/28/2021 4:00 PM R esults for this ONLY CDT procedure are i n the results section. EXTRA TUBE STAT 04/28/2021 3:52 PM Results f or this CDT procedure are i n the results section. EXTRA BLOOD CULTURE STAT 04/28/2021 3:52 PM Re sults for this BOTTLE CDT procedure are i n the results section. CBC WITH PLATELETS AND STAT 04/28/2021 3:50 PM Results for this DIFFERENTIAL CDT procedure are i n the results section. PROCALCITONIN STAT 04/28/2021 3:50 PM Results for this CDT procedure are i n the results section. CBC WITH PLATELETS & STAT 04/28/2021 3:50 PM R esults for this DIFFERENTIAL CDT procedure are i n the results section. TROPONIN I STAT 04/28/2021 3:50 PM Results f or this CDT procedure are i n the results section. COMPREHENSIVE METABOLIC STAT 04/28/2021 3:50 PM Results for this PANEL CDT procedure are i n the results section. documented in this encounter Results HOLTER MONITOR 48 HOUR APPLICATION SCAN ANALYSIS AND PROVIDER INTERPRETATION (05/07/2021 8:51 AM CDT) Anatomical Region Laterality Modality Other Specimen (Source) Anatomical Collection Method Collection Time Re ceived Time Location / / Volume Laterality 05/07/2021 8:43 AM CDT Brenda Willoughby PA-C [facility] ORDERABL ES (ABNORMAL) Basic metabolic panel (05/01/2021 7:35 AM CDT) Analysis Performed At Patho logist Time Signature Sodium 143 133 - 144 05/01/2021 [facility] mmol/L 8:16 AM CDT Potassium 4.4 3.4 - 5.3 05/01/2021 LABORATORY mmol/L 8:16 AM CDT Chloride 114 (H) 94 - 109 05/01/2021 LAB[facility]ORY mmol/L 8:16 AM CDT Carbon Dioxide 24 20 - 32 05/01/2021 LAB[facility] (CO2) mmol/L 8:16 AM CDT Anion Gap 5 3 - 14 05/01/2021 LAB[facility]ORY mmol/L 8:16 AM CDT Urea Nitrogen 28 7 - 30 05/01/2021 LAB[facility]ORY mg/dL 8:16 AM CDT Creatinine 1.21 0.66 - 05/01/2021 LABOR[facility]ORY 1.25 mg/dL 8:16 AM CDT Calcium 8.5 8.5 - 10.1 05/01/2021 LAB[facility]ORY mg/dL 8:16 AM CDT Glucose 67 (L) 70 - 99 05/01/2021 LAB[facility]ORY mg/dL 8:16 AM CDT GFR Estimate 60 (L) >60 05/01/2021 LAB[facility]ORY mL/min/1.7 8:16 AM CDT 3m2 Comment: As of February [...] Laterality Blood STRUCTURE OF RIGHT Venipuncture / 05/01/2021 7:35 04/11 7:53 HAND / Unknown Unknown AM CDT AM CDT Yasir Altamirano DO LAB - BLOOD ORDERABLES Performing Organization Address City/State/ZIP Code Phon e Number LABORATORY [place] [address] Care Lab [address] 1[address] floor, Room [address]B XR Chest 2 Views (04/30/2021 12:21 PM CDT) Anatomical Region Laterality Modality Chest Digital Radiography Specimen (Source) Anatomical Location Collection Method / Collectio n Time Received Time / Laterality Volume Impressions 04/30/2021 12:25 PM CDT IMPRESSION:Stable small bilateral pleural effusions, left greater than right and mild bibasilar atelectasis. No pneumothorax. Median sternotomy and mediastinal surgical clip libby JONES MD Narrative 04/30/2021 12:25 PM CDT XR CHEST 2 VW 04/30/2021 12:21 PM HISTORY: s/p thoracentesis and removal o f 1L COMPARISON: 04/27/2021 and 04/28/2021 Procedure Note Yvan Jones MD - 04/30/2021 XR CHEST 2 VW 04/30/2021 12:21 PM HISTORY: s/p thoracentesis and removal o f 1L COMPARISON: 04/27/2021 and 04/28/2021 IMPRESSION:Stable small bilateral pleura l effusions, left greater than right and mild bibasilar atelectasis. No pneumothorax. Median sternotomy and mediastinal surgical clip libby JONES MD Shavon Pisano PA-C IMG DIAGNOSTIC IMAGING ORDER [place] (ABNORMAL) Catecholamines Fractionated (04/30/2021 7:33 AM CDT) [facility] Method Time Signature Epinephrine pg/mL 29 10 - 200 05/03/2021 [facility] pg/mL 11:04 AM CDT Norepinephrine 749 (H) 80 - 520 05/03/2021 [facility] pg/mL 11:04 AM CDT Dopamine <20 0 - 20 05/03/2021 [facility] pg/mL 11:04 AM CDT Catecholamine See Note 05/03/2021 [facility] Blood 11:04 AM CDT Interpretation Comment: INTERPRETIVE INFORMATION: Catecholamines Panel, Plasma Small increases in catecholamines (less than 2 times the upper reference limit) usually are the r esult of physiological stimuli, drugs, or imprope r specimen collection. Significant elevation of one or more ?? catecholamines (2 or more times the uppe r reference limit) is associated with an increased probabil ity of a neuroendocrine tumor. Measurement of manuel sma or urine fractionated metanephrines provides bett er diagnostic ?? sensitivity than measurement of catechol amines. Higher catecholamine concentrations are observed in specimens collected from upright or michela ding adults. ?? Epinephrine may be increased by approxim ately 20 percent; norepinephrine up to 700 pg/mL; dopamine , unchanged. Specimen Anatomical Collection Method / Collection Time Recei syhla Time (Source) Location / Volume Laterality Blood STRUCTURE OF LEFT Venipuncture / 04/30/2021 7:33 04/30 7:37 HAND / Unknown Unknown AM CDT AM CDT Narrative [facility] - 05/03/2021 11:04 AM CDT Performed By: [address] [place] [address] Security Monitor: Ginette Sol MD Brenda Willoughby PA-C LAB - BLOOD ORDERABLES Performing Organization Address City/State/ZIP Code Phon e Number [facility] Real [facility] Tomography [employer] [place], [place] [phone] [address] [facility] [address] (ABNORMAL) CBC with platelets (04/30/2021 7:33 AM CDT) [facility] Method Time Signature WBC Count 11.6 (H) 4.0 - 11.0 04/30/2021 LABORATORY 10e3/uL 7:40 AM CDT RBC Count 2.77 (L) 4.40 - 04/30/2021 LABORATORY 5.90 7:40 AM CDT 10e6/uL Hemoglobin 8.2 (L) 13.3 - 04/30/2021 LAB[facility] 17.7 g/dL 7:40 AM CDT Hematocrit 26.3 (L) 40.0 - 04/30/2021 LAB[facility]ATORY 53.0 % 7:40 AM CDT MCV 95 78 - 100 04/30/2021 [facility]ORY fL 7:40 AM CDT MCH 29.6 26.5 - 04/30/2021 LAB[facility] 33.0 pg 7:40 AM CDT MCHC 31.2 (L) 31.5 - 04/30/2021 LAB[facility]ORY 36.5 g/dL 7:40 AM CDT RDW 14.1 10.0 - 04/30/2021 LABORATORY 15.0 % 7:40 AM CDT Platelet Count 284 150 - 450 04/30/2021 LAB[facility]ORY 10e3/uL 7:40 AM CDT Specimen Anatomical Collection Method / Collection Time Recei shyla Time (Source) Location / Volume Laterality Blood STRUCTURE OF LEFT Venipuncture / 04/30/2021 7:33 04/30 7:37 HAND / Unknown Unknown AM CDT AM CDT Yasir Altamirano DO LAB - BLOOD ORDERABLES Performing Organization Address City/State/ZIP Code [place] [address] [phone] Care Lab [address], [address] (ABNORMAL) Basic metabolic panel (04/30/2021 7:33 AM CDT) [facility] Method Time Signature Sodium 144 133 - 144 04/30/2021 LAB[facility]ATORY mmol/L 7:55 AM CDT Potassium 4.6 3.4 - 5.3 04/30/2021 LAB[facility]ORY mmol/L 7:55 AM CDT Chloride 115 (H) 94 - 109 04/30/2021 [facility] mmol/L 7:55 AM CDT Carbon Dioxide 24 20 - 32 04/30/2021 LAB[facility]ORY (CO2) mmol/L 7:55 AM CDT Anion Gap 5 3 - 14 04/30/2021 [facility] mmol/L 7:55 AM CDT Urea Nitrogen 32 (H) 7 - 30 04/30/2021 LAB[facility]ATORY mg/dL 7:55 AM CDT Creatinine 1.28 (H) 0.66 - 04/30/2021 LAB[facility]ORY 1.25 mg/dL 7:55 AM CDT Calcium 8.2 (L) 8.5 - 10.1 04/30/2021 LAB[facility]ORY mg/dL 7:55 AM CDT Glucose 99 70 - 99 04/30/2021 LAB[facility]ORY mg/dL 7:55 AM CDT GFR Estimate 56 (L) >60 04/30/2021 LAB[facility]ORY mL/min/1.7 7:55 AM CDT 3m2 Comment: As of February [...] Laterality Blood STRUCTURE OF LEFT Venipuncture / 04/30/2021 7:33 04/30 7:37 HAND / Unknown Unknown AM CDT AM CDT Yasir Parrabrueck DO LAB - BLOOD ORDERABLES Performing Organization Address City/State/ZIP Code Phon e Number LABORATORY [facility] [place] [address] Care Lab [address], Room 20B US Renal Complete w Duplex Complete (04/29/2021 4:24 PM CDT) Anatomical Region Laterality Modality Abdomen/Pelvis Ultrasound Specimen (Source) Anatomical Location Collection Method / Collectio n Time Received Time / Laterality Volume Impressions 05/02/2021 12:24 PM CDT IMPRESSION: No evidence of renal artery stenosis. KIARA LAGOS DO Narrative 05/02/2021 12:24 PM CDT US RENAL COMPLETE WITH DOPPLER COMPLETE ??04/29/2021 4:24 PM HISTORY: ??Status post coronary artery b ypass graft. Malignant hypertension. COMPARISON: 09/28/2013 FINDINGS: The right kidney measures 10.7 x 5.9 x 5 .0 cm. The right renal cortex measures 1.3 cm in thickness. There is n o hydronephrosis. Renal cortical echogenicity is unremarkable. Spectral waveform analysis was performed . ??The peak systolic velocities in the right renal artery at its hilum, mid and origin are 105, 152 and 145 cm/sec respectively. Lo w resistance waveforms are identified in the right renal artery. Th e resistance indices in the right arcuate arteries range between 0.6 8-0.76. RAR ratios range between 0.9 to 1.2. The left kidney measures 12.5 x 5.8 x 6. 1 cm. The left renal cortex measures 1.2 cm in thickness. There is n o hydronephrosis. Renal cortical echogenicity is unremarkable. T here is a simple cyst in the inferior pole of the left kidney measuri ng 1.8 cm, not significantly changed when compared to the study from 09/28/2013, no further follow-up needed. Spectral waveform analysis was performed . ??The peak systolic velocities in the left renal artery at i ts hilum, mid and origin are 84, 172 and 177 cm/sec respectively. Low resistance waveforms are identified in the left renal artery. The resistance indices in the left arcuate arteries range between 0.78 -0.79. RAR ratios range between 0.7 to 1.5. The peak systolic velocity in the abdomi nal aorta superior to the origin of the renal arteries is 122 cm p er sec. The blader was not visualized. Procedure Note Kiara Lagos DO - 2020 US RENAL COMPLETE WITH DOPPLER COMPLETE 04/29/2021 4:24 PM HISTORY: Status post coronary artery byp ass graft. Malignant hypertension. COMPARISON: 09/28/2013 FINDINGS: The right kidney measures 10.7 x 5.9 x 5 .0 cm. The right renal cortex measures 1.3 cm in thickness. There is n o hydronephrosis. Renal cortical echogenicity is unremarkable. Spectral waveform analysis was performed . The peak systolic velocities in the right renal artery at its hilum, mid and origin are 105, 152 and 145 cm/sec respectively. Lo w resistance waveforms are identified in the right renal artery. Th e resistance indices in the right arcuate arteries range between 0.6 8-0.76. RAR ratios range between 0.9 to 1.2. The left kidney measures 12.5 x 5.8 x 6. 1 cm. The left renal cortex measures 1.2 cm in thickness. There is n o hydronephrosis. Renal cortical echogenicity is unremarkable. T here is a simple cyst in the inferior pole of the left kidney measuri ng 1.8 cm, not significantly changed when compared to the study from 09/28/2013, no further follow-up needed. Spectral waveform analysis was performed . The peak systolic velocities in the left renal artery at i ts hilum, mid and origin are 84, 172 and 177 cm/sec respectively. Low resistance waveforms are identified in the left renal artery. The resistance indices in the left arcuate arteries range between 0.78 -0.79. RAR ratios range between 0.7 to 1.5. The peak systolic velocity in the abdomi nal aorta superior to the origin of the renal arteries is 122 cm p er sec. The blader was not visualized. IMPRESSION: No evidence of renal artery stenosis. KIARA LAGOS DO Brenda Willoughby PA-C IMG US ORDERABLES US Thoracentesis (04/29/2021 3:53 PM CDT) Anatomical Region Laterality Modality Chest Ultrasound Specimen (Source) Anatomical Location Collection Method / Collectio n Time Received Time / Laterality Volume Impressions 04/29/2021 4:21 PM CDT IMPRESSION: 1. ??Status post left ultrasound-guided thoracentesis. Reference CPT Code: 59353 YVAN JONES MD Narrative 04/29/2021 4:21 PM CDT US THORACENTESIS 04/29/2021 3:53 PM CLINICAL HISTORY: s/p cabg, L pleural ef fusion PROCEDURE: Informed consent obtained. Ti me out performed. The chest was prepped and draped in sterile fashio n. 10 mL of 1% Xylocaine was infused into the local soft tissues. Und er direct ultrasound guidance, a 5 Trinidadian catheter system was placed in to the pleural effusion. 1.0 liters of red fluid were removed and sent to lab, if requested. Patient tolerated procedure well. Ultrasound imaging was obtained and plac ed in the patient's permanent medical record. Procedure Note Yvan Jones MD - 04/29/2021 US THORACENTESIS 04/29/2021 3:53 PM CLINICAL HISTORY: s/p cabg, L pleural ef fusion PROCEDURE: Informed consent obtained. Ti me out performed. The chest was prepped and draped in sterile fashio n. 10 mL of 1% Xylocaine was infused into the local soft tissues. Und er direct ultrasound guidance, a 5 Trinidadian catheter system was placed in to the pleural effusion. 1.0 liters of red fluid were removed and sent to lab, if requested. Patient tolerated procedure well. Ultrasound imaging was obtained and plac ed in the patient's permanent medical record. IMPRESSION: 1. Status post left ultrasound-guided th oracentesis. Reference CPT Code: 90420 YVAN JONES MD Brenda Willoughby PA-C IMG US ORDERABLES IR Procedure Note (04/29/2021 3:15 PM CDT) Narrative Yvan Jones MD - 04/29/2021 3:15 PM C DT Yvan Jones MD ? 04/29/2021 ??4:21 PM [facility] Procedure: IR Procedure Note Date/Time: 04/29/2021 3:15 PM Performed by: Yvan Jones MD Authorized by: Yvan Jones MD [employer]AL [employer] Site Marked: NA Prior Images Obtained and Reviewed: ??Ye s [...] dure a time out was called ?? Wesson Protocol: the Joint Commission [place] Protocol was followed ?? Preparation: Patient was prepped and dorothy ped in usual sterile fashion ?? ANESTHESIA Anesthesia: Local infiltration Local Anesthetic: ??Lidocaine 1% without epinephrine SEDATION Patient Sedated: No ?? See dictated procedure note for full det ails. Findings: Moderate left pleural effusion Specimens: none Complications: None Condition: Stable PROCEDURE Patient Tolerance: ??Patient tolerated t he procedure well with no immediate complications Length of time physician/provider presen t for 1:1 monitoring during sedation: 0 Yvan Jones MD PROCEDURE/MINOR SURGICAL ORD ERABLES (ABNORMAL) Hemoglobin A1c (04/29/2021 7:08 AM CDT) Analysis Performed At Patho logist Time Signature Hemoglobin A1C 7.1 (H) 0.0 - 5.6 04/29/2021 LABORATORY % 11:09 AM CDT Comment: Normal <5.7% Prediabetes 5.7-6.4% ?? Diabetes 6.5% or higher Note: Adopted from ADA consensus guideli anna. Specimen Anatomical Collection Method / Collection Time Recei shyla Time (Source) Location / Volume Laterality Blood STRUCTURE OF LEFT Venipuncture / 04/29/2021 7:08 04/29 7:16 UPPER LIMB / Unknown AM CDT AM CDT Unknown Yasir Altamirano DO LAB - BLOOD ORDERABLES Performing Organization Address City/State/ZIP Code Phon e Number LABORATORY [place] [address] [phone] Care Lab [address], Room [address]B (ABNORMAL) CBC with platelets and differential (04/29/2021 7:08 AM CDT) [facility] Method Time Signature WBC Count 10.1 4.0 - 04/29/2021 LABORATORY 11.0 7:25 AM CDT 10e3/uL RBC Count 2.63 (L) 4.40 - 04/29/2021 LABORATORY 5.90 7:25 AM CDT 10e6/uL Hemoglobin 7.7 (L) 13.3 - 04/29/2021 LABORATORY 17.7 g/dL 7:25 AM CDT Hematocrit 24.7 (L) 40.0 - 04/29/2021 LABORATORY 53.0 % 7:25 AM CDT MCV 94 78 - 100 04/29/2021 LABORATORY fL 7:25 AM CDT MCH 29.3 26.5 - 04/29/2021 LABORATORY 33.0 pg 7:25 AM CDT MCHC 31.2 (L) 31.5 - 04/29/2021 LABORATORY 36.5 g/dL 7:25 AM CDT RDW 14.2 10.0 - 04/29/2021 LABORATORY 15.0 % 7:25 AM CDT Platelet Count 274 150 - 450 04/29/2021 LABORATORY 10e3/uL 7:25 AM CDT % Neutrophils 66 % 04/29/2021 LABORATORY 7:25 AM CDT % Lymphocytes 15 % 04/29/2021 LABORATORY 7:25 AM CDT % Monocytes 10 % 04/29/2021 LABORATORY 7:25 AM CDT % Eosinophils 7 % 04/29/2021 LABORATORY 7:25 AM CDT % Basophils 1 % 04/29/2021 LABORATORY 7:25 AM CDT % Immature 1 % 04/29/2021 LABORATORY Granulocytes 7:25 AM CDT NRBCs per 100 0 <1 /100 04/29/2021 LABORATORY WBC 7:25 AM CDT Absolute 6.8 1.6 - 8.3 04/29/2021 LABORATORY Neutrophils 10e3/uL 7:25 AM CDT Absolute 1.5 0.8 - 5.3 04/29/2021 LABORATORY Lymphocytes 10e3/uL 7:25 AM CDT Absolute 1.0 0.0 - 1.3 04/29/2021 LABORATORY Monocytes 10e3/uL 7:25 AM CDT Absolute 0.7 0.0 - 0.7 04/29/2021 LABORATORY Eosinophils 10e3/uL 7:25 AM CDT Absolute 0.1 0.0 - 0.2 04/29/2021 LABORATORY Basophils 10e3/uL 7:25 AM CDT Absolute 0.1 (H) <=0.0 04/29/2021 LABORATORY Immature 10e3/uL 7:25 AM CDT Granulocytes Absolute NRBCs 0.0 10e3/uL 04/29/2021 LABORATORY 7:25 AM CDT Specimen Anatomical Collection Method / Collection Time Recei shyla Time (Source) Location / Volume Laterality Blood STRUCTURE OF LEFT Venipuncture / 04/29/2021 7:08 04/29 7:16 UPPER LIMB / Unknown AM CDT AM CDT Unknown Faisal Rojas MD LAB - BLOOD ORDERABLES Performing Organization Address City/State/ZIP Code [place] [address] [phone] [facility] [address], Room [address]B (ABNORMAL) Comprehensive metabolic panel (04/29/2021 7:08 AM CDT) [facility] Method Time Signature Sodium 144 133 - 144 04/29/2021 LABORATORY mmol/L 7:45 AM CDT Potassium 4.7 3.4 - 5.3 04/29/2021 LABORATORY mmol/L 7:45 AM CDT Chloride 114 (H) 94 - 109 04/29/2021 LABORATORY mmol/L 7:45 AM CDT Carbon Dioxide 24 20 - 32 04/29/2021 LABORATORY (CO2) mmol/L 7:45 AM CDT Anion Gap 6 3 - 14 04/29/2021 LABORATORY mmol/L 7:45 AM CDT Urea Nitrogen 47 (H) 7 - 30 04/29/2021 LABORATORY mg/dL 7:45 AM CDT Creatinine 1.64 (H) 0.66 - 04/29/2021 LABORATORY 1.25 7:45 AM CDT mg/dL Calcium 8.2 (L) 8.5 - 04/29/2021 LABORATORY 10.1 7:45 AM CDT mg/dL Glucose 88 70 - 99 04/29/2021 LABORATORY mg/dL 7:45 AM CDT Alkaline 60 40 - 150 04/29/2021 LABORATORY Phosphatase U/L 7:45 AM CDT AST 22 0 - 45 04/29/2021 LABORATORY U/L 7:45 AM CDT ALT 30 0 - 70 04/29/2021 LABORATORY U/L 7:45 AM CDT Protein Total 5.8 (L) 6.8 - 8.8 04/29/2021 LABORATORY g/dL 7:45 AM CDT Albumin 2.3 (L) 3.4 - 5.0 04/29/2021 LABORATORY g/dL 7:45 AM CDT Bilirubin Total 0.5 0.2 - 1.3 04/29/2021 LABORATORY mg/dL 7:45 AM CDT GFR Estimate 41 (L) >60 04/29/2021 LABORATORY mL/min/1. 7:45 AM CDT 73m2 Comment: As of February 17, 2021, eGFR [...] Laterality Blood STRUCTURE OF LEFT Venipuncture / 04/29/2021 7:08 04/29 7:16 UPPER LIMB / Unknown AM CDT AM CDT Unknown Faisal Rojas MD LAB - BLOOD ORDERABLES Performing Organization Address City/State/ZIP Code [place] [address] [facility] [address], Room [address]B US Lower Extremity Venous Duplex Bilateral (04/29/2021 12:05 AM CDT) Anatomical Region Laterality Modality Vascular, Thigh, Leg Ultrasound Specimen (Source) Anatomical Collection Method Collection Time Re ceived Time Location / / Volume Laterality 04/28/2021 11:41 PM CDT Impressions 04/29/2021 12:21 AM CDT IMPRESSION: 1. ??No deep venous thrombosis in the bi lateral lower extremities. Narrative 04/29/2021 12:21 AM CDT EXAM: US LOWER EXTREMITY VENOUS DUPLEX BILATERAL LOCATION: [facility] DATE/TIME: 04/28/2021 11:41 PM INDICATION: LE edema COMPARISON: None. TECHNIQUE: Venous Duplex ultrasound of b ilateral lower extremities with and without compression, augmentation and duplex. Color flow and spectral Doppler with waveform analysis performed. FINDINGS: Exam includes the common femor al, femoral, popliteal veins as well as segmentally visualized deep calf veins and greater saphenous vein. RIGHT: No deep vein thrombosis. No super ficial thrombophlebitis. No popliteal cyst. LEFT: No deep vein thrombosis. No superf icial thrombophlebitis. No popliteal cyst. Procedure Note Karen Waller MD, MD - EXAM: US LOWER EXTREMITY VENOUS DUPLEX B ILATERAL LOCATION: [facility] DATE/TIME: 04/28/2021 11:41 PM INDICATION: LE edema COMPARISON: None. TECHNIQUE: Venous Duplex ultrasound of b ilateral lower extremities with and without compression, augmentation and duplex. Color flow and spectral Doppler with waveform analysis performed. FINDINGS: Exam includes the common femor al, femoral, popliteal veins as well as segmentally visualized deep calf veins and greater saphenous vein. RIGHT: No deep vein thrombosis. No super ficial thrombophlebitis. No popliteal cyst. LEFT: No deep vein thrombosis. No superf icial thrombophlebitis. No popliteal cyst. IMPRESSION: 1. No deep venous thrombosis in the bila teral lower extremities. Faisal Rojas MD IMG US ORDERABLES (ABNORMAL) Ferritin (04/28/2021 10:44 PM CDT) P athologist Signature Ferritin 472 (H) 26 - 388 04/28/2021 [facility] LAB[facility]ATORY ng/mL 11:17 PM CDT Specimen Anatomical Collection Method / Collection Time Recei shyla Time (Source) Location / Volume Laterality Blood STRUCTURE OF LEFT Venipuncture / 04/28/2021 10:44 04/10 UPPER LIMB / Unknown PM CDT 10:49 PM CDT Unknown Faisal Rojas MD LAB - BLOOD ORDERABLES Performing Organization Address City/State/ZIP Code Phon e Number LABORATORY [place] [address] [phone] Care Lab [address], Room [address]B (ABNORMAL) Transferrin (04/28/2021 10:44 PM CDT) P athologist Signature Transferrin 192 (L) 210 - 360 04/29/2021 [facility] mg/dL 9:49 AM CDT Specimen Anatomical Collection Method / Collection Time Recei shyla Time (Source) Location / Volume Laterality Blood STRUCTURE OF LEFT Venipuncture / 04/28/2021 10:44 04/10 UPPER LIMB / Unknown PM CDT 10:49 PM CDT Unknown Faisal Rojas MD LAB - BLOOD ORDERABLES Performing Organization Address City/State/ZIP Code Phon e [place] [address] Lab [address] [facility], [address] [place] [address], Lab [place] [address] [facility], [address] Iron and iron binding capacity (04/28/2021 10:44 PM CDT) athologist Signature Iron 42 35 - 180 04/28/2021 LABORATORY ug/dL 11:14 PM CDT Iron Binding 242 240 - 430 04/28/2021 LABORATORY Capacity ug/dL 11:14 PM CDT Iron Sat Index 17 15 - 46 % 04/28/2021 LABORATORY 11:14 PM CDT Specimen Anatomical Collection Method / Collection Time Recei shyla Time (Source) Location / Volume Laterality Blood STRUCTURE OF LEFT Venipuncture / 04/28/2021 10:44 04/10 UPPER LIMB / Unknown PM CDT 10:49 PM CDT Unknown Faisal Rojas MD LAB - BLOOD ORDERABLES Performing Organization Address City/State/ZIP Code Phon e Number LABORATORY [place] [address] Care Lab [address], [address]B Folate (04/28/2021 10:44 PM CDT) athologist Signature Folic Acid 16.5 >=5.4 ng/mL 04/29/2021 [facility] 11:16 AM CDT Comment: Deficient: <3.4 ng/mL Indeterminate: 3.4-5.4 ng/mL Normal: > 5.4 ng/mL Specimen Anatomical Collection Method / Collection Time Recei shyla Time (Source) Location / Volume Laterality Blood STRUCTURE OF LEFT Venipuncture / 04/28/2021 10:44 04/10 UPPER LIMB / Unknown PM CDT 10:49 PM CDT Unknown Faisal Rojas MD LAB - BLOOD ORDERABLES Performing Organization Address City/State/ZIP Code [place] [address] [phone] Lab [address] [facility] [address], [address] [place] [address], [facility] [address] [facility] [address] [facility], Room 3580 Vitamin B12 (04/28/2021 10:44 PM CDT) athologist Signature Vitamin B12 758 193 - 986 04/29/2021 [facility] pg/mL 10:15 AM CDT Specimen Anatomical Collection Method / Collection Time Recei shyla Time (Source) Location / Volume Laterality Blood STRUCTURE OF LEFT Venipuncture / 04/28/2021 10:44 04/10 UPPER LIMB / Unknown PM CDT 10:49 PM CDT Unknown Faisal Rojas MD LAB - BLOOD ORDERABLES Performing Organization Address City/State/ZIP Code [place] [address] Lab [address] [facility] [address], [address] [place] [address], Lab [place] [address] [facility] [address], [address] Procalcitonin (04/28/2021 10:44 PM CDT) athologist Signature Procalcitonin <0.05 <5.00 ng/mL 04/28/2021 LABORATORY 11:17 PM CDT Comment: Interpretation and Recommendations <0.05 ng/mL Normal Very low risk of bacterial infection. Strongly discourage antibiotics. 0.05-0.24 ng/mL Low risk of systemic inf ection. Local bacterial infection possible. Assess other clinical features of infect ion. Discourage antibiotics. 0.25-0.49 ng/mL Possible early systemic infection or localized infection Encourage antibiotics only in correct cl inical context. Consider obtaining blood cultures or oth er relevant cultures. Recheck PCT in 6-12 hours to ensure base line low level. If repeat PCT is rising, consider early systemic infection and consider starting antibiotics. 0.50-1.99 ng/mL Moderate risk of systemi c infection. Recommend antibiotics. Evaluate culture results and clinical fe atures to target antibacterial therapy. Obtain blood cultures and other relevant cultures if not done. If empiric antibiotics were started, rec heck PCT in: ? 2 days to guide antibiotic de-esc alation. ? Discontinue or de-escalate antibi otics when PCT concentration is <80% of ?peak or abs PCT <0.5. If empiric antibiotics were NOT started, recheck PCT in: ? 6-24 hours to re-evaluate need fo r antibiotics. 2.00-9.99 g/mL High risk for progression to severe sepsis. Strongly recommend initiating or continu ing antibiotics. Evaluate culture results and clinical fe atures to target antibacterial therapy. Obtain blood cultures and other relevant cultures if not done. Repeat PCT in 2 days to guide antibiotic de-escalation. Consider de-escalating antibiotics when PCT concentration is <80% or peak or abs PCT < 0.05. Greater than or equal to 10 ng/mL Very h igh likelihood of severe sepsis or septic shock. Strongly recommend initiating or continu ing antibiotics. Evaluate culture results and clinical fe atures to target antibacterial therapy. Obtain blood cultures and other relevant cultures if not done. Repeat PCT in 2 days to guide antibiotic de-escalation. Consider de-escalating antibiotics when PCT concentration is <80% of peak or abs PCT < 1. Specimen Anatomical Collection Method / Collection Time Recei shyla Time (Source) Location / Volume Laterality Blood STRUCTURE OF LEFT Venipuncture / 04/28/2021 10:44 04/10 UPPER LIMB / Unknown PM CDT 10:49 PM CDT Unknown Faisal Rojas MD LAB - BLOOD ORDERABLES Performing Organization Address City/State/ZIP Code Phon e Number LABORATORY [place] [address] [phone] Care Lab [address] 1[address], Room [address] CK total (04/28/2021 10:44 PM CDT) P athologist Signature CK 56 30 - 300 U/L 04/28/2021 LABORATORY 11:16 PM CDT Specimen Anatomical Collection Method / Collection Time Recei shyla Time (Source) Location / Volume Laterality Blood STRUCTURE OF LEFT Venipuncture / 04/28/2021 10:44 04/10 UPPER LIMB / Unknown PM CDT 10:49 PM CDT Unknown Faisal Rojas MD LAB - BLOOD ORDERABLES Performing Organization Address City/State/ZIP Code Phon e Number LABORATORY [place] [address] Care Lab [address] 1[address], Room [address]B (ABNORMAL) Hemoglobin A1c (04/28/2021 10:44 PM CDT) Analysis Performed At Patho logist Time Signature Hemoglobin A1C 7.0 (H) 0.0 - 5.6 04/28/2021 LABORATORY % 11:14 PM CDT Comment: Normal <5.7% Prediabetes 5.7-6.4% ?? Diabetes 6.5% or higher Note: Adopted from ADA consensus guideli anna. Specimen Anatomical Collection Method / Collection Time Recei shyla Time (Source) Location / Volume Laterality Blood STRUCTURE OF LEFT Venipuncture / 04/28/2021 10:44 04/10 UPPER LIMB / Unknown PM CDT 10:49 PM CDT Unknown Faisal Rojas MD LAB - BLOOD ORDERABLES Performing Organization Address City/State/ZIP Code Phon e Number LABORATORY [place] [address] Care Lab [address] 1[address], Room [address] Asymptomatic COVID-19 Virus (Coronavirus) by PCR Nasopharyngeal (04/28/2021 7:14 PM CDT) Analysis Performed At Patho logist Time Signature SARS CoV2 PCR Negative Negative 04/28/2021 LABORATORY 7:46 PM CDT Comment: NEGATIVE: SARS-CoV-2 (COVID-19) RNA not detected, presumed negative. Specimen Anatomical Location / Collection Method Collection Abiodun e Received Time (Source) Laterality / Volume Swab NASOPHARYNGEAL Non-blood 04/28/2021 7:14 04/28/2021 7:22 STRUCTURE / Unknown Collection / PM CDT PM CDT Unknown Narrative LABORATORY - 04/28/2021 7:46 PM CDT Testing was performed using the meghna?? SARS-CoV-2 [...] exposure or clinical presentation sugges ts COVID-19. ??[facility] are certified under the Clinical Laborat ory Improvement Amendments of 1988 (CLIA-88) as qualified to perform moderate and/or high complexity laboratory testing. Edmundo Granda MD LAB - MICRO GENERAL ORDERABL ES Performing Organization Address City/State/ZIP Code Phon e Number LABORATORY [place] [address] Care Lab [address] 1[address], [address] CT Chest Pulmonary Embolism w Contrast (04/28/2021 7:07 PM CDT) Anatomical Region Laterality Modality Chest, SUBRAD CT BODY, UMP CT CHEST Comp uted Tomography Specimen (Source) Anatomical Collection Method Collection Time Re ceived Time Location / / Volume Laterality 04/28/2021 6:09 PM CDT Impressions 04/28/2021 7:55 PM CDT IMPRESSION: 1. ??No pulmonary embolism. 2. ??New sternotomy with postsurgical ch anges of CABG. New moderate sized left and small right pleural effusion with left basilar consolidation. Scattered mild infiltrate or atelectasis in the mid and lower lungs. Narrative 04/28/2021 7:55 PM CDT EXAM: CT CHEST PULMONARY EMBOLISM W CONTRAST LOCATION: [facility] DATE/TIME: 04/28/2021 6:09 PM INDICATION: Frequent falls. Weakness and dizziness. COMPARISON: 04/16/2021. TECHNIQUE: CT chest pulmonary angiogram during arterial phase injection of IV contrast. Multiplanar reformats and MIP reconstructions were performed. Dose reduction techniques were used. CONTRAST: 78 mL Isovue-370. FINDINGS: ANGIOGRAM CHEST: Pulmonary arteries are normal caliber and negative for pulmonary emboli. Thoracic aorta is negative for dissection. No CT evidence of right heart strain. LUNGS AND PLEURA: New small right pleura l effusion with moderate size left pleural effusion. Left basilar consolidation with a few patchy regions of atelectasis in the mid and lower lungs. MEDIASTINUM/AXILLAE: Interval sternotomy and postsurgical changes of CABG. CORONARY ARTERY CALCIFICATION: CABG. UPPER ABDOMEN: Normal. MUSCULOSKELETAL: Normal. Procedure Note Brandon Esqueda MD - 04/28/2021Formattin g of this note might be different from the original. EXAM: CT CHEST PULMONARY EMBOLISM W CONT RAST LOCATION: [facility] DATE/TIME: 04/28/2021 6:09 PM INDICATION: Frequent falls. Weakness and dizziness. COMPARISON: 04/16/2021. TECHNIQUE: CT chest pulmonary angiogram during arterial phase injection of IV contrast. Multiplanar reformats and MIP reconstructions were performed. Dose reduction techniques were used. CONTRAST: 78 mL Isovue-370. FINDINGS: ANGIOGRAM CHEST: Pulmonary arteries are normal caliber and negative for pulmonary emboli. Thoracic aorta is negative for dissection. No CT evidence of right heart strain. LUNGS AND PLEURA: New small right pleura l effusion with moderate size left pleural effusion. Left basilar consolidation with a few patchy regions of atelectasis in the mid and lower lungs. MEDIASTINUM/AXILLAE: Interval sternotomy and postsurgical changes of CABG. CORONARY ARTERY CALCIFICATION: CABG. UPPER ABDOMEN: Normal. MUSCULOSKELETAL: Normal. IMPRESSION: 1. No pulmonary embolism. 2. New sternotomy with postsurgical zavaleta ges of CABG. New moderate sized left and small right pleural effusion with left basilar consolidation. Scattered mild infiltrate or atelectasis in the mid and lower lungs. Edmundo Granda MD IMG CT ORDERABLES Head CT w/o contrast (04/28/2021 7:06 PM CDT) Anatomical Region Laterality Modality Head, SUBRAD CT NEURO, SUBRAD CT NEURO, UMP CT NEURO, Computed Tomography RAD CT Specimen (Source) Anatomical Collection Method Collection Time Re ceived Time Location / / Volume Laterality 04/28/2021 6:11 PM CDT Impressions 04/28/2021 7:22 PM CDT IMPRESSION: 1. 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 No definite acute infarct. 2. ??Mild atrophy. Narrative 04/28/2021 7:22 PM CDT EXAM: CT HEAD W/O CONTRAST LOCATION: [facility] DATE/TIME: 04/28/2021 6:11 PM INDICATION: Dizziness, non-specific COMPARISON: None. TECHNIQUE: Routine CT Head without IV co ntrast. Multiplanar reformats. Dose reduction techniques were used. FINDINGS: INTRACRANIAL CONTENTS: No intracranial h emorrhage, extraaxial collection, or mass effect. ??Small infarct in the inferomedial right cerebellum appears chronic. No definite acute infarct. Mild generalized volume loss. No hydrocephalus. VISUALIZED ORBITS/SINUSES/MASTOIDS: No i ntraorbital abnormality. No paranasal sinus mucosal disease. No middle ear or mastoid effusion. BONES/SOFT TISSUES: No acute abnormality . Procedure Note Luis Felipe Mccartney MD - 1 EXAM: CT HEAD W/O CONTRAST LOCATION: [facility] DATE/TIME: 04/28/2021 6:11 PM INDICATION: Dizziness, non-specific COMPARISON: None. TECHNIQUE: Routine CT Head without IV co ntrast. Multiplanar reformats. Dose reduction techniques were used. FINDINGS: INTRACRANIAL CONTENTS: No intracranial h emorrhage, extraaxial collection, or mass effect. 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 No definite acute infarct. Mild generalized volume loss. No hydrocephalus. VISUALIZED ORBITS/SINUSES/MASTOIDS: No i ntraorbital abnormality. No paranasal sinus mucosal disease. No middle ear or mastoid effusion. BONES/SOFT TISSUES: No acute abnormality . IMPRESSION: 1. Small infarct in the inferomedial rig ht cerebellum appears chronic. No definite acute infarct. 2. Mild atrophy. Edmundo Granda MD IMG CT ORDERABLES (ABNORMAL) D dimer quantitative (04/28/2021 5:26 PM CDT) Patholo gist Method Time Signature D-Dimer 2.39 (H) 0.00 - 04/28/2021 LABORATORY Quantitative 0.50 5:46 PM CDT ug/mL FEU Specimen Anatomical Collection Method / Collection Time Recei shyla Time (Source) Location / Volume Laterality Blood STRUCTURE OF RIGHT Venipuncture / 04/28/2021 5:26 04/10 5:32 UPPER LIMB / Unknown PM CDT PM CDT Unknown Narrative LABORATORY - 04/28/2021 5:46 PM CDT This D-dimer assay is intended for use i n conjunction with a clinical pretest probability assessment model to exclude pulmonary embolism (PE) and deep venous thrombosis (DVT) in outpatients suspecte d of PE or DVT. The cut-off value is 0.50 ug/mL FEU. Edmundo Granda MD LAB - BLOOD ORDERABLES Performing Organization Address City/State/ZIP Code Phon e Number LABORATORY [facility] [place] [address] Care Lab [address] [place] 1st floor, Room 20B EKG 12 lead (04/28/2021 4:00 PM CDT) Component Value Ref Range Test Analysis Performed Pathologis t Method Time At Signature Systolic Blood mmHg RADIOLOGY Pressure RESULTS Diastolic Blood mmHg RADIOLOGY Pressure RESULTS Ventricular Rate 55 BPM RADIOLOGY RESULTS Atrial Rate 55 BPM RADIOLOGY RESULTS GA Interval 136 ms RADIOLOGY RESULTS QRS Duration 100 ms RADIOLOGY RESULTS QT 422 ms RADIOLOGY RESULTS QTc 403 ms RADIOLOGY RESULTS P [place] 65 degrees RADIOLOGY RESULTS R AXIS 58 degrees RADIOLOGY RESULTS T [place] 82 degrees RADIOLOGY RESULTS Interpretation Sinus bradycardia RADIOLO GY ECG Nonspecific T wave abnormality RESULTS Abnormal ECG When compared with ECG of 27-APR-2021 13:29, No significant change was found Confirmed by GENERATED REPOR T, COMPUTER ([id number]), editor trade journal Brenda Pavon ([id number]) on 04/28/2021 4:21:40 PM Specimen Anatomical Collection Method Collection Time Receive d Time (Source) Location / / Volume Laterality 04/28/2021 4:00 PM 4:21 CDT PM CDT Edmundo Granda MD ECG ORDERABLES Performing Organization Address City/State/ZIP Code Phon e Number RADIOLOGY RESULTS Extra Blood Culture Bottle (04/28/2021 3:52 PM CDT) athologist Signature Hold Specimen JIC 04/28/2021 LABORATORY 5:01 PM CDT Specimen Anatomical Collection Method / Collection Time Recei shyla Time (Source) Location / Volume Laterality Blood STRUCTURE OF RIGHT Venipuncture / 04/28/2021 3:52 04/10 3:58 UPPER LIMB / Unknown PM CDT PM CDT Unknown Edmundo Granda MD LAB - BLOOD ORDERABLES Performing Organization Address City/State/ZIP Code [place] [address] [facility] Lab [address] 1[address] floor, Room 20B (ABNORMAL) CBC with platelets and differential (04/28/2021 3:50 PM CDT) Patholo gist Method Time Signature WBC Count 11.0 4.0 - 04/28/2021 LABORATORY 11.0 4:00 PM CDT 10e3/uL RBC Count 2.68 (L) 4.40 - 04/28/2021 LABORATORY 5.90 4:00 PM CDT 10e6/uL Hemoglobin 7.8 (L) 13.3 - 04/28/2021 LABORATORY 17.7 g/dL 4:00 PM CDT Hematocrit 25.2 (L) 40.0 - 04/28/2021 LABORATORY 53.0 % 4:00 PM CDT MCV 94 78 - 100 04/28/2021 LABORATORY fL 4:00 PM CDT MCH 29.1 26.5 - 04/28/2021 LABORATORY 33.0 pg 4:00 PM CDT MCHC 31.0 (L) 31.5 - 04/28/2021 LABORATORY 36.5 g/dL 4:00 PM CDT RDW 14.1 10.0 - 04/28/2021 LABORATORY 15.0 % 4:00 PM CDT Platelet Count 262 150 - 450 04/28/2021 LABORATORY 10e3/uL 4:00 PM CDT % Neutrophils 72 % 04/28/2021 LABORATORY 4:00 PM CDT % Lymphocytes 12 % 04/28/2021 LABORATORY 4:00 PM CDT % Monocytes 9 % 04/28/2021 LABORATORY 4:00 PM CDT % Eosinophils 6 % 04/28/2021 LABORATORY 4:00 PM CDT % Basophils 0 % 04/28/2021 LABORATORY 4:00 PM CDT % Immature 1 % 04/28/2021 LABORATORY Granulocytes 4:00 PM CDT NRBCs per 100 0 <1 /100 04/28/2021 LABORATORY WBC 4:00 PM CDT Absolute 7.9 1.6 - 8.3 04/28/2021 LABORATORY Neutrophils 10e3/uL 4:00 PM CDT Absolute 1.3 0.8 - 5.3 04/28/2021 LABORATORY Lymphocytes 10e3/uL 4:00 PM CDT Absolute 1.0 0.0 - 1.3 04/28/2021 LABORATORY Monocytes 10e3/uL 4:00 PM CDT Absolute 0.7 0.0 - 0.7 04/28/2021 LABORATORY Eosinophils 10e3/uL 4:00 PM CDT Absolute 0.0 0.0 - 0.2 04/28/2021 LABORATORY Basophils 10e3/uL 4:00 PM CDT Absolute 0.1 (H) <=0.0 04/28/2021 LABORATORY Immature 10e3/uL 4:00 PM CDT Granulocytes Absolute NRBCs 0.0 10e3/uL 04/28/2021 LABORATORY 4:00 PM CDT Specimen Anatomical Collection Method / Collection Time Recei shyla Time (Source) Location / Volume Laterality Blood STRUCTURE OF RIGHT Venipuncture / 04/28/2021 3:50 04/10 3:56 UPPER LIMB / Unknown PM CDT PM CDT Unknown Edmundo Granda MD LAB - BLOOD ORDERABLES Performing Organization Address City/State/ZIP Code Phon e Number LABORATORY [facility] [place] [address] Care Lab [address] [place] 1st floor, Room 20B Procalcitonin (04/28/2021 3:50 PM CDT) athologist Signature Procalcitonin <0.05 <5.00 ng/mL 04/28/2021 LABORATORY 4:24 PM CDT Comment: Interpretation and Recommendations <0.05 ng/mL Normal Very low risk of bacterial infection. Strongly discourage antibiotics. 0.05-0.24 ng/mL Low risk of systemic inf ection. Local bacterial infection possible. Assess other clinical features of infect ion. Discourage antibiotics. 0.25-0.49 ng/mL Possible early systemic infection or localized infection Encourage antibiotics only in correct cl inical context. Consider obtaining blood cultures or oth er relevant cultures. Recheck PCT in 6-12 hours to ensure base line low level. If repeat PCT is rising, consider early systemic infection and consider starting antibiotics. 0.50-1.99 ng/mL Moderate risk of systemi c infection. Recommend antibiotics. Evaluate culture results and clinical fe atures to target antibacterial therapy. Obtain blood cultures and other relevant cultures if not done. If empiric antibiotics were started, rec heck PCT in: ? 2 days to guide antibiotic de-esc alation. ? Discontinue or de-escalate antibi otics when PCT concentration is <80% of ?peak or abs PCT <0.5. If empiric antibiotics were NOT started, recheck PCT in: ? 6-24 hours to re-evaluate need fo r antibiotics. 2.00-9.99 g/mL High risk for progression to severe sepsis. Strongly recommend initiating or continu ing antibiotics. Evaluate culture results and clinical fe atures to target antibacterial therapy. Obtain blood cultures and other relevant cultures if not done. Repeat PCT in 2 days to guide antibiotic de-escalation. Consider de-escalating antibiotics when PCT concentration is <80% or peak or abs PCT < 0.05. Greater than or equal to 10 ng/mL Very h igh likelihood of severe sepsis or septic shock. Strongly recommend initiating or continu ing antibiotics. Evaluate culture results and clinical fe atures to target antibacterial therapy. Obtain blood cultures and other relevant cultures if not done. Repeat PCT in 2 days to guide antibiotic de-escalation. Consider de-escalating antibiotics when PCT concentration is <80% of peak or abs PCT < 1. Specimen Anatomical Collection Method / Collection Time Recei shyla Time (Source) Location / Volume Laterality Blood STRUCTURE OF RIGHT Venipuncture / 04/28/2021 3:50 04/10 3:56 UPPER LIMB / Unknown PM CDT PM CDT Unknown Edmundo Granda MD LAB - BLOOD ORDERABLES Performing Organization Address City/State/ZIP Code [place] [address] [facility] [address] [facility] [address] 1st [address], Room 20B (ABNORMAL) Comprehensive metabolic panel (04/28/2021 3:50 PM CDT) [facility] Method Time Signature Sodium 141 133 - 144 04/28/2021 LABORATORY mmol/L 4:28 PM CDT Potassium 4.8 3.4 - 5.3 04/28/2021 LABORATORY mmol/L 4:28 PM CDT Chloride 111 (H) 94 - 109 04/28/2021 LABORATORY mmol/L 4:28 PM CDT Carbon Dioxide 25 20 - 32 04/28/2021 LABORATORY (CO2) mmol/L 4:28 PM CDT Anion Gap 5 3 - 14 04/28/2021 LABORATORY mmol/L 4:28 PM CDT Urea Nitrogen 55 (H) 7 - 30 04/28/2021 LABORATORY mg/dL 4:28 PM CDT Creatinine 2.16 (H) 0.66 - 04/28/2021 LABORATORY 1.25 4:28 PM CDT mg/dL Calcium 8.2 (L) 8.5 - 04/28/2021 LABORATORY 10.1 4:28 PM CDT mg/dL Glucose 153 (H) 70 - 99 04/28/2021 LABORATORY mg/dL 4:28 PM CDT Alkaline 64 40 - 150 04/28/2021 LABORATORY Phosphatase U/L 4:28 PM CDT AST 22 0 - 45 04/28/2021 LABORATORY U/L 4:28 PM CDT ALT 34 0 - 70 04/28/2021 LABORATORY U/L 4:28 PM CDT Protein Total 5.9 (L) 6.8 - 8.8 04/28/2021 LABORATORY g/dL 4:28 PM CDT Albumin 2.4 (L) 3.4 - 5.0 04/28/2021 LABORATORY g/dL 4:28 PM CDT Bilirubin Total 0.3 0.2 - 1.3 04/28/2021 LABORATORY mg/dL 4:28 PM CDT GFR Estimate 30 (L) >60 04/28/2021 LABORATORY mL/min/1. 4:28 PM CDT 73m2 Comment: As of February 17, 2021, eGFR [...] Laterality Blood STRUCTURE OF RIGHT Venipuncture / 04/28/2021 3:50 04/10 3:56 UPPER LIMB / Unknown PM CDT PM CDT Unknown Edmundo Granda MD LAB - BLOOD ORDERABLES Performing Organization Address City/State/ZIP Code [place] [address] Care Lab [address] 1[address] floor, Room 20B (ABNORMAL) Troponin I (04/28/2021 3:50 PM CDT) athologist Signature Troponin I 0.050 (H) 0.000 - 04/28/2021 LABORATORY 0.045 ug/L 4:30 PM CDT Comment: The 99th percentile for upper r eference range is 0.045ug/L. Troponin values in the range of 0.045 - 0.120 ug/L may b e associated with risks of adverse clinical events. Specimen Anatomical Collection Method / Collection Time Recei shyla Time (Source) Location / Volume Laterality Blood STRUCTURE OF RIGHT Venipuncture / 04/28/2021 3:50 04/10 3:56 UPPER LIMB / Unknown PM CDT PM CDT Unknown Edmundo Granda MD LAB - BLOOD ORDERABLES Performing Organization Address City/State/ZIP Code Phon e Number SH LABORATORY [facility] [place] [phone] Care Lab [address], Room 20B documented in this encounter Visit Diagnoses Diagnosis S/P CABG (coronary artery bypass graft) - Primary Postsurgical aortocoronary bypass status Weakness of both legs Other musculoskeletal symptoms referable to limbs Near syncope Syncope and collapse Anemia, unspecified type Weakness Other malaise and fatigue CAD (coronary artery disease) Coronary atherosclerosis of unspecified type of vessel, mohegan or graft Type 2 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, with long-term current use of insulin (H) 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 documented in this encounter Admitting Diagnoses Diagnosis Anemia, unspecified type Weakness Other malaise and fatigue documented in this encounter Administered Medications Inactive Administered Medications - up to 3 most recent administrations Medication Order MAR Action Action Date Dose Rate Site 0.9% sodium chloride BOLUS New Bag 04/28/2021 5:20 PM CDT 500 mLs Intravenous, 500 mL, ONCE, On 04/28/21 at 1710, For 1 dose 0.9% sodium chloride BOLUS New Bag 04/28/2021 7:14 PM CDT 1,000 mLs Intravenous, 1,000 mL, ONCE, On 04/28/21 at 1840, For 1 dose acetaminophen (TYLENOL) tablet 650 mg Given 04/29/2021 9:08 PM CDT 650 mg 650 mg, Oral, EVERY 4 HOURS PRN, mild pain, Starting on 04/28/21 at 2213, Maximum acetaminophen dose from all sources = 75 mg/kg/day not to exceed 4 grams/day. Given 04/29/2021 12:13 PM CDT 650 mg albuterol (PROAIR HFA/PROVENTIL HFA/VENT MELY HFA) 108 (90 Base) MCG/ACT inhaler 2 puff 2 puff, Inhalation, EVERY 6 HOURS PRN, w brisaezing, Starting on Thu04/29/21 at 1001, Check the dose counter on the inhaler to ensure there are doses remaining before administering. amLODIPine (NORVASC) tablet 10 mg Given 05/01/2021 8:27 AM CDT 10 mg 10 mg, Oral, DAILY, First dose on Thu04/29/21 at 0900 Given 04/30/2021 8:49 AM CDT 10 mg Given 04/29/2021 9:00 AM CDT 10 mg aspirin (ASA) chewable tablet 324 mg Given 05/01/2021 8:27 AM CDT 324 mg 324 mg, Oral or NG Tube, DAILY, First dose on Thu04/29/21 at 0900 Given 04/30/2021 8:49 AM CDT 324 mg Given 04/29/2021 9:01 AM CDT 324 mg azithromycin (ZITHROMAX) 500 mg New Bag 04/30/2021 11:29 PM CD T 500 mg 250 mL/hr vial to attach to NS 250 mL bag STAT, 500 mg, Intravenous, EVERY 24 HOURS, First dose on 04/28/21 at 2230, Indications: Community Acquired Pneumonia New Bag 04/29/2021 11:03 PM CDT 500 mg 250 mL/hr New Bag 04/29/2021 1:00 AM CDT 500 mg 250 mL/hr carvedilol (COREG) tablet 6.25 mg Given 04/29/2021 9:00 AM CDT 6.25 mg 6.25 mg, Oral, 2 TIMES DAILY WITH MEALS, First dose on Thu04/29/21 at 0900 cefTRIAXone (ROCEPHIN) 1 g vial to attach to New Bag 10:48 PM CDT 1 g NS 100 mL bag for ADULTS or NS 50 mL bag for PEDS STAT, 1 g, Intravenous, EVERY 24 HOURS, First dose on 04/28/21 at 2230, Indications: Community Acquired Pneumonia cefTRIAXone (ROCEPHIN) 2 g vial to attach to New Bag 10:34 PM CDT 2 g NS 100 ml bag for ADULTS or NS 50 ml bag for PEDS STAT, 2 g, Intravenous, EVERY 24 HOURS, First dose (after last modification) on 04/29/21 at 2230, Indications: Community Acquired Pneumonia New Bag 04/29/2021 10:18 PM CDT 2 g 200 mL/hr cloNIDine (CATAPRES) tablet 0.1 mg Given 05/01/2021 8:27 AM CDT 0.1 mg 0.1 mg, Oral, 2 TIMES DAILY, First dose on Thu04/30/21 at 2100 Given 04/30/2021 8:20 PM CDT 0.1 mg cyanocobalamin (VITAMIN B-12) tablet 1,000 Given 05/01 8:27 AM CDT 1,000 mcg mcg 1,000 mcg, Oral, DAILY, First dose on Thu04/29/21 at 0900 Given 04/30/2021 8:49 AM CDT 1,000 mcg Given 04/29/2021 9:00 AM CDT 1,000 mcg dextrose 50 % injection 25-50 mL 25-50 mL, Intravenous, EVERY 15 MIN PRN, low blood sug ar, Administer over 1-5 Minutes, Starting on Thu04/29/21 at 0918 , Use if have IV access, BG less [...] glucose level is above 100 mg/dL. Vesicant. famotidine (PEPCID) tablet 20 mg Given 05/01/2021 4:10 PM CDT 20 mg 20 mg, Oral, 2 TIMES DAILY BEFORE MEALS, First dose on Thu04/29/21 at 0730 Given 05/01/2021 6:53 AM CDT 20 mg Given 04/30/2021 3:45 PM CDT 20 mg ferrous sulfate CR tablet 140 mg Given 05/01/2021 8:27 AM CDT 140 mg 140 mg, Oral, DAILY, First dose on Thu04/29/21 at 0900, DO NOT CRUSH. Absorbed best on an empty stomach. If stomach upset occurs, can take with meals. Given 04/30/2021 8:49 AM CDT 140 mg Given 04/29/2021 9:00 AM CDT 140 mg gabapentin (NEURONTIN) capsule 300 mg Given 04/28/2021 8:52 PM CDT 300 mg 300 mg, Oral, 2 TIMES DAILY, First dose on 04/28/21 at 2034 gabapentin (NEURONTIN) capsule 300 mg Given 04/30/2021 10:33 PM CDT 300 mg 300 mg, Oral, 2 TIMES DAILY, First dose (after last reorder) on 04/28/21 at 2300 Given 04/30/2021 8:20 PM CDT 300 mg Given 04/29/2021 10:14 PM CDT 300 mg glucagon injection 1 mg 1 mg, Subcutaneous, EVERY 15 MIN PRN, low blood sugar, May repeat x 1 only, Starting on 04/28/21 at 2213, May giv e SQ or IM. ONLY use glucagon IF patient has NO IV access AND is UNABLE to swallo w AND blood glucose is LESS than or EQUAL to 50 mg/dL. glucose gel 15-30 g 15-30 g, Oral, EVERY 15 MIN PRN, low blo od sugar, Starting on 04/28/21 at 2213, Give first dose for initial blood glucose [...] flowsheet. hydrALAZINE (APRESOLINE) injection 10 mg Given 04/30/2021 7:24 PM CDT 10 mg 10 mg, Intravenous, EVERY 4 HOURS PRN, high blood pressure, give for SBP > 160, Starting on Thu04/30/21 at 1852 hydrALAZINE (APRESOLINE) injection 10 mg Given 04/30/2021 9:07 PM CDT 10 mg 10 mg, Intravenous, ONCE, Administer over 1 Minutes, On Thu04/30/21 at 2100, For 1 dose hydrALAZINE (APRESOLINE) tablet 10 mg Given 04/29/2021 1:27 PM CDT 10 mg 10 mg, Oral, 3 TIMES DAILY, First dose on Thu04/29/21 at 1330, Hold if SBP<120 mmHg hydrALAZINE (APRESOLINE) tablet 25 mg Given 04/30/2021 8:49 AM CDT 25 mg 25 mg, Oral, 3 TIMES DAILY, First dose (after last modification) on Thu04/29/21 at 1600, Hold if SBP<120 mmHg Given 04/29/2021 10:14 PM CDT 25 mg Given 04/29/2021 5:18 PM CDT 25 mg hydrALAZINE (APRESOLINE) tablet 25 mg Given 05/01/2021 4:11 PM CDT 25 mg 25 mg, Oral, ONCE, On Thu05/01/21 at 1600, For 1 dose hydrALAZINE (APRESOLINE) tablet 50 mg Given 05/01/2021 8:27 AM CDT 50 mg 50 mg, Oral, 3 TIMES DAILY, First dose (after last modification) on Thu04/30/21 at 1600, Hold if SBP<120 mmHg Given 04/30/2021 10:33 PM CDT 50 mg Given 04/30/2021 3:45 PM CDT 50 mg hydrALAZINE (APRESOLINE) tablet 50 mg Given 05/01/2021 4:10 PM CDT 50 mg 50 mg, Oral, 3 TIMES DAILY, First dose (after last modification) on Thu05/01/21 at 1600, Hold if SBP<120 mmHg insulin aspart (NovoLOG) injection (RAPID Given 04/28/2021 7 :11 PM CDT 14 Units ACTING) 14 Units, Subcutaneous, ONCE, On Thu04/28/21 at 1845, For 1 dose, If given at mealtime, administer within 30 minutes of start of meal insulin aspart (NovoLOG) injection (RAPID Given 05/01/2021 1 :10 PM CDT 13 Units ACTING) Subcutaneous, 3 TIMES DAILY WITH MEALS, First dose on Thu04/29/21 at 0930, DOSE: 1 units per 5 grams of carbohydrate. Only chart total amount of units given. Do not give if pre-prandial glucose is less than 60 mg/dL. If given at mealtime, administer within 30 minutes of start of meal Given 04/30/2021 6:11 PM CDT 16 Units Given 04/30/2021 1:48 PM CDT 11 Units insulin aspart (NovoLOG) injection (RAPID Given 05/01/2021 8 :39 AM CDT 19 Units ACTING) 1-7 Units, Subcutaneous, 4 TIMES DAILY BEFORE MEALS & NIGHTLY, First dose (after last reorder) on Thu04/29/21 at 1230, Do Not give Correction Insulin if Pre-Meal BG less than 150. For Pre-Meal BG 150 - 175 give 1 unit. For Pre-Meal BG 175 - 200 give 2 units. For Pre-Meal BG 200 - 225 give 3 units. For Pre-Meal BG 225 - 250 give 4 units. For Pre-Meal BG 250- 275 give 5 units. For Pre-Meal BG 275-300 give 6 units For Pre-Meal BG 300-325 give 7 units For Pre-Meal BG 325-350 give 8 units, To be given with prandial insulin, and based on pre-meal blood glucose. Notify provider if glucose greater than or equal to 350 mg/dL after administration of correction dose. If given at mealtime, administer within 30 minutes of start of meal Given 04/30/2021 10:38 PM CDT 2 Units insulin glargine (LANTUS PEN) injection 50 Given 04/30 10:34 PM CDT 50 Units Units 50 Units, Subcutaneous, AT BEDTIME, First dose (after last modification) on Thu04/30/21 at 2200 insulin glargine (LANTUS PEN) injection 55 Given 04/29 10:15 PM CDT 55 Units Units 55 Units, Subcutaneous, AT BEDTIME, First dose (after last modification) on Thu04/29/21 at 2200 insulin glargine (LANTUS PEN) injection 70 Given 04/29 12:56 AM CDT 55 Units Units 70 Units, Subcutaneous, AT BEDTIME, First dose on Thu04/28/21 at 2230 iopamidol (ISOVUE-370) solution 78 mL Given 04/28/2021 6:56 PM CDT 78 mLs 78 mL, Intravenous, ONCE, On Thu04/28/21 at 1855, For 1 dose isosorbide mononitrate (IMDUR) 24 hr tablet Given 05/01/2021 12:11 PM CDT 30 mg 30 mg 30 mg, Oral, DAILY, First dose on Thu05/01/21 at 1130, DO NOT CRUSH. Can split tablet in half along score alden. lidocaine (PF) (XYLOCAINE) 1 % Given by Other 04/29/2021 2:54 PM CDT 10 mLs injection 10 mL 10 mL, Subcutaneous, ONCE, On Thu04/29/21 at 1500, For 1 dose lisinopril (ZESTRIL) tablet 10 mg Given 04/29/2021 11:06 AM CDT 10 mg 10 mg, Oral, DAILY, First dose on Thu04/29/21 at 1000 melatonin tablet 1 mg Given 04/30/2021 11:29 PM CDT 1 mg 1 mg, Oral, AT BEDTIME PRN, sleep, Starting on Thu04/28/21 at 2032, Do not give unless at least 6 hours of uninterrupted sleep is expected. Given 04/29/2021 9:08 PM CDT 1 mg Given 04/28/2021 8:52 PM CDT 1 mg ondansetron (ZOFRAN) injection 4 mg 4 mg, Intravenous, EVERY 6 HOURS PRN, nausea, vomiting , Administer over 2-5 Minutes, Starting on Thu04/28/21 at 2213 , Give IF patient unable to tolerate oral medication. This is Step 1 of nausea and vomiting ann gement. If nausea not resolved in 15 minutes, go to Step 2 prochlorperazine (COMPAZINE). Irritant. ondansetron (ZOFRAN-ODT) ODT tab 4 mg 4 mg, Oral, EVERY 6 HOURS PRN, nausea, v omiting, Starting on 04/28/21 at 2213, This is Step 1 of nausea and vomiting management. If n ausea not resolved in 15 minutes, go to Step 2 prochlorperazine ( COMPAZINE). With dry hands, peel back foil backing and gently remove tablet. Do not push oral disintegrating tablet through foil backing. Administer immediately on tongue and ora l disintegrating tablet dissolves in seconds, then swallow with saliva. Liquid not required. prochlorperazine (COMPAZINE) injection 5 mg 5 mg, Intravenous, EVERY 6 HOURS PRN, nausea, vomiting , Administer over 1-2 Minutes, Starting on 04/28/21 at 2213, IF patient u nable to tolerate oral medication. This is Step 2 of nausea and vomiting management. Give if nausea not resolved 15 minutes after giving ondansetron (ZOFRAN). prochlorperazine (COMPAZINE) suppository 12.5 mg 12.5 mg, Rectal, EVERY 12 HOURS PRN, jose alfredo sea, vomiting, Starting on 04/28/21 at 2213, This is Step 2 of nausea and vomit ing management. Give if nausea not resolved 15 minutes after giving ondansetron (ZOFRAN). prochlorperazine (COMPAZINE) tablet 5 mg 5 mg, Oral, EVERY 6 HOURS PRN, vomiting, Starting on 04/28/21 at 2213, This is Step 2 of nausea and vomiting management . Give if nausea not resolved 15 minutes after giving ondansetron (ZOFRAN). Saline Given 04/28/2021 6:56 PM CDT 100 mLs As instructed, 100 mL, ONCE, On 04/28/21 at 1815, For 1 dose, This entry is for use by Radiology to intermittently used as a flush in patients receiving a CT scan. sertraline (ZOLOFT) tablet 50 mg Given 04/30/2021 8:20 PM CDT 50 mg 50 mg, Oral, EVERY EVENING, First dose on 04/28/21 at 2230 Given 04/29/2021 9:08 PM CDT 50 mg Given 04/28/2021 10:50 PM CDT 50 mg sodium chloride (PF) 0.9% PF flush 3 mL Given 05/01/2021 1:14 PM CDT 3 mLs 3 mL, Intracatheter, EVERY 8 HOURS, First dose on 04/28/21 at 2230, to lock peripheral IV dormant line Given 04/30/2021 10:48 PM CDT 3 mLs Given 04/30/2021 1:49 PM CDT 3 mLs sodium chloride 0.9% infusion Rate/Dose Verify 04/29/2021 6:11 AM CDT 100 mL/hr at 100 mL/hr, Intravenous, CONTINUOUS, Starting on 04/28/21 at 2230, Until Thu04/29/21 at 1605 New Bag 04/29/2021 6:06 AM CDT 100 mL/hr New Bag 04/28/2021 10:33 PM CDT 100 mL/hr documented in this encounter Active and Recently Administered Medications Times are shown in CDT. Scheduled Medication Order 04/29/2021 04/30/2021 05/01/2021 amLODIPine (NORVASC) tablet 10 mg 0900 (Given - Provid er: Pooja Mcneal, LETICIA) 0849 (Given - Provider: Patricia Cobian, LETICIA) 0827 (Giv en - Provider: Mabel Cerda, RN) 10 mg, Oral, DAILY, First dose on Thu04/29/21 at 0900 aspirin (ASA) chewable tablet 324 mg 09 (Given - Pro vider: Pooja Mcneal, LETICIA) 0849 (Given - Provider: Patricia Cobian, LETICIA) 0827 (Giv en - Provider: Mabel Cerda, RN) 324 mg, Oral or NG Tube, DAILY, First dose on Thu04/29/21 at 090 0 azithromycin (ZITHROMAX) 500 mg vial to attach to NS 2 50 mL bag (CANCELED) 0100 (New Bag - Provider: Ashlee Alvarez RN)2303 (New Bag - Provider: Brooke Miller, LETICIA) 2329 (New Bag - Provider: Miguel Sheets RN) STAT, 500 mg, Intravenous, EVERY 24 HOUR S, First dose on Thu04/28/21 at 2230, Indications: Community Acquired Pneumonia carvedilol (COREG) tablet 6.25 mg (CANCELED) 0900 (Giv en - Provider: Pooja Mcneal, LETICIA) 6.25 mg, Oral, 2 TIMES DAILY WITH MEALS, First dose on Thu at 0900 cefTRIAXone (ROCEPHIN) 2 g vial to attac h to NS 100 ml bag for ADULTS or NS 50 ml bag for PEDS (CANCELED) 2217 (New Bag - Provider: Brooke Miller, LETICIA) 2233 (New Bag - Provider: Miguel Sheets, LETICIA) STAT, 2 g, Intravenous, EVERY 24 HOURS, First dose (after last modification) on Thu04/29/21 at 2230, Indications: Community Acquired Pneumonia cloNIDine (CATAPRES) tablet 0.1 mg 2019 (Given - Provider: Miguel Sheets RN) 08 (Given - Provider: Mabel Cerda, LETICIA) 0.1 mg, Oral, 2 TIMES DAILY, First dose on Thu04/30/21 at 2100 cyanocobalamin (VITAMIN B-12) tablet 1,000 mcg 0900 (G iven - Provider: Pooja Mcneal RN) 0849 (Given - Provider: Patricia Cobian, LETICIA) 0827 (Giv en - Provider: Mabel Cerda, LETICIA) 1,000 mcg, Oral, DAILY, First dose on Thu04/29/21 at 0900 famotidine (PEPCID) tablet 20 mg 0606 (Given - Provide r: Francisco Odonnell RN)0730 (Canceled Entry - Provider: Francisco Odonnell RN)1726 (Given - Provider: Palmira Tamez RN) 0642 (Given - Provider: Kings Arzate, LETICIA)1545 (Given - Provider: Patricia Cobian, LETICIA) 0653 (Given - Provider: Miguel Sheets, LETICIA)1610 (Given - Provider: Mabel Cerda, LETICIA) 20 mg, Oral, 2 TIMES DAILY BEFORE MEALS, First dose on Thu at 0730 ferrous sulfate CR tablet 140 mg 0900 (Given - Provide r: Pooja Mcneal RN) 0849 (Given - Provider: Patricia Cobian, LETICIA) 0827 (Giv en - Provider: Mabel Cerda, LETICIA) 140 mg, Oral, DAILY, First dose on Thu at 0900, DO NOT CRUSH. Absorbed best on an empty stomach. If stomach upset occurs, can take with meals. gabapentin (NEURONTIN) capsule 300 mg 0100 (Given - Pr ovider: Ashlee Alvarez RN - Comment: pt wanted at bedtime)2107 (Given - Provider: Brooke Miller, LETICIA)2213 (Given - Provider: Brooke Miller RN) 2019 (Given - Provider: Miguel Sheets, LETICIA)2232 (Given - Provider: Miguel Sheets RN) 300 mg, Oral, 2 TIMES DAILY, First dose (after last reorder) on Thu04/28/21 at 2300 hydrALAZINE (APRESOLINE) injection 10 mg (COMPLETED) 2106 (Given - Provider: Miguel Sheets RN - Comment: dose ordered by MD - hi BP) 10 mg, Intravenous, ONCE, Administer ove r 1 Minutes, On Thu04/30/21 at 2100, For 1 dose hydrALAZINE (APRESOLINE) tablet 10 mg (CANCELED) 1327 (Given - Provider: Pooja Mcneal RN) 10 mg, Oral, 3 TIMES DAILY, First dose o n Thu04/29/21 at 1330, Hold if SBP<120 mmHg hydrALAZINE (APRESOLINE) tablet 25 mg (CANCELED) 171 (Given - Provider: Palmira Tamez RN)2213 (Given - Provider: Brooke Miller RN) 0849 (Given - Provider: Patricia Cobian, LETICIA) 25 mg, Oral, 3 TIMES DAILY, First dose ( after last modification) on Thu04/29/21 at 1600, Hold if SBP<120 mmHg hydrALAZINE (APRESOLINE) tablet 25 mg (COMPLETED) 1611 (Given - Provider: Mabel Cerda, LETICIA) 25 mg, Oral, ONCE, On Thu05/01/21 at 1600, For 1 dose hydrALAZINE (APRESOLINE) tablet 50 mg (CANCELED) 1545 (Given - Provider: Patricia Cobian, LETICIA)223 (Given - Provider: Miguel Sheets, LETICIA) 0827 (Given - Provider: Mabel Cerda RN) 50 mg, Oral, 3 TIMES DAILY, First dose ( after last modification) on Thu04/30/21 at 1600, Hold if SBP<120 mmHg hydrALAZINE (APRESOLINE) tablet 50 mg 1610 (Given - Provider: Mabel Cerda RN) 50 mg, Oral, 3 TIMES DAILY, First dose ( after last modification) on Thu05/01/21 at 1600, Hold if SBP<120 mmHg insulin aspart (NovoLOG) injection (RAPID ACTING) 0934 (Given - Provider: Pooja Mcneal RN - Comment: 56)1323 (Not Given - Provider: Pooja Mcneal RN - Reason: Order parameters not met - Comment: NPO)1813 (Given - Provider: Brooke Miller RN - Comment: 60g C) 0947 (Given - Provider: Patricia Cobian, LETICIA)1348 (Given - Provider: Patricia Cobian RN)1811 (Given - Provider: Patricia Cobian RN - Comment: 65G carbs) 0839 (Not Given - Provider: Mabel Cerda RN - Reason: Other)1310 (Given - Provider: Mabel Cerda RN)1800 (Canceled Entry - Provider: Orders Generic Provider - Comment: Automatically canceled at discontinue of medication order) Subcutaneous, 3 TIMES DAILY WITH MEALS, First dose on Thu04/29/21 at 0930, DOSE: 1 units per 5 grams of carbohydrate. Only chart total amount of units given. Do not give if pre-prandial glucose is less than 60 mg/dL. If given at mealtime, adm inister within 30 minutes of start of meal insulin aspart (NovoLOG) injection (RAPID ACTING) 1329 (Not Given - Provider: Pooja Mcneal RN - Reason: Order parameters not met - Comment: 112, NPO)1736 (Not Given - Provider: Brooke Miller RN - Reason: Order parameters not met - Comment: BG 70) 0848 (Not Given - Provider: Patricia tellez RN - Reason: Order parameters not met - Comment: BG 98 on Dexcom)1346 (Not Given - Provider: Patricia Cobian RN - Reason: Order parameters not met - Comment: BG 98) 0839 (Given - Provider: Mabel Cerda RN)1310 (Not Given - Provider: Mabel Cerda RN - Reason: Other)1707 (Not Given - Provider: Mabel Cerda RN - Reason: Other - Comment: eating at home) 1-7 Units, Subcutaneous, 4 TIMES DAILY B EFORE MEALS & NIGHTLY, First dose (after last reorder) on Thu04/29/21 at 1230, Do Not give Correction Insulin if Pre-Meal BG less than 150. For Pre-Meal BG 15 2213 (Not Given - Provider: Brooke Miller RN - Reason: Order parameters not met - Comment: BG 126) 1811 (Not Given - Provider: Patricia Cobian RN - Reason: Order parameters not met)2238 (Given - Provider: Miguel Sheets RN - Comment: BG 197) 0 - 175 give 1 unit. For Pre-Meal BG 175 - 200 give 2 units. For Pre-Meal BG 200 - 225 give 3 units. For Pre-Meal BG 225 - 250 give 4 units. For Pre-Meal BG 250- 275 give 5 units. For Pre-Meal BG 275-30 0 give 6 units For Pre-Meal BG 300-325 g prasanna 7 units For Pre-Meal BG 325-350 give 8 units, To be given with prandial insulin, and based on pre-meal blood glucose. Notify provider if glucose greater than or equal to 350 mg/dL after administrati on of correction dose. If given at mealtime, administer within 30 minutes of start of meal insulin glargine (LANTUS PEN) injection 50 Units 223 (Given - Provider: Miguel Sheets RN) 50 Units, Subcutaneous, AT BEDTIME, Firs t dose (after last modification) on Thu04/30/21 at 2200 insulin glargine (LANTUS PEN) injection 55 Units (CANC ELED) 221 (Given - Provider: Brooke Miller RN) 55 Units, Subcutaneous, AT BEDTIME, Firs t dose (after last modification) on Thu04/29/21 at 2200 insulin glargine (LANTUS PEN) injection 70 Units (CANC ELED) 0056 (Given - Provider: Ashlee Alvarez RN - Comment: per pt and [employer] med list lantus dose 55 units) 70 Units, Subcutaneous, AT BEDTIME, First dose on Thu04/28/21 at 2230 isosorbide mononitrate (IMDUR) 24 hr tablet 30 mg 1211 (Given - Provider: Mabel Cerda, RN) 30 mg, Oral, DAILY, First dose on Thu at 1130, DO NOT CRUSH. Can split tablet in half along score alden. lidocaine (PF) (XYLOCAINE) 1 % injection 10 mL (COMPLE REGINA) 1454 (Given by Other - Provider: Pau Mallory) 10 mL, Subcutaneous, ONCE, On Thu04/29/21 at 1500, For 1 dose lisinopril (ZESTRIL) tablet 10 mg (CANCELED) 1106 (Giv en - Provider: Pooja Mcneal, LETICIA) 10 mg, Oral, DAILY, First dose on Thu04/29/21 at 1000 sertraline (ZOLOFT) tablet 50 mg 2108 (Given - Provider: Yordy Miller, LETICIA) 2020 (Given - Provider: Miguel Sheets, LETICIA) 50 mg, Oral, EVERY EVENING, First dose on Thu04/28/21 at 2230 sodium chloride (PF) 0.9% PF flush 3 mL 0539 (Not Give n - Provider: Ashlee Alvarez RN - Reason: IV Infusing)1330 (Not Given - Provider: Pooja Mcneal, LETICIA - Reason: IV Infusing)2217 (Given - Provider: Brooke Miller, LETICIA) 0536 (Not Given - Provider: Kings Arzate RN - Reason: Patient sleeping)1349 (Given - Provider: Patricia Cobian, LETICIA)2248 (Given - Provider: Miguel Sheets, LETICIA) 0741 (Not Given - Provider: Miguel Sheets RN - Reason: Patient sleeping)1314 (Given - Provider: Mabel Cerda, RN)1622 (Not Given - Provider: Mabel Cerda, RN - Reason: Other) 3 mL, Intracatheter, EVERY 8 HOURS, Firs t dose on 04/28/21 at 2230, to lock peripheral IV dormant line Continuous Medication Order 04/29/2021 04/30/2021 05/01/2021 sodium chloride 0.9% infusion () 0606 (New Bag - Provider: Francisco Odonnell, LETICIA)0611 (Rate/Dose Verify - Provider: Ashlee Alvarez RN) at 100 mL/hr, Intravenous, CONTINUOUS, S tarting on Thu04/28/21 at 2230, Until Thu04/29/21 at 1605 PRN Medication Order 04/29/2021 04/30/2021 05/01/2021 acetaminophen (TYLENOL) tablet 650 mg 1213 (Given - Pr ovider: Kaitlin Zuniga RN)2108 (Given - Provider: Brooke Miller RN) 0133 (Not Given - Provider: Kings Arzate RN - Reason: Patient/family refused) 650 mg, Oral, EVERY 4 HOURS PRN, mild pa in, Starting on Thu04/28/21 at 2213, Maximum acetaminophen dose from all sources = 75 mg/kg/day not to exceed 4 grams/day. albuterol (PROAIR HFA/PROVENTIL HFA/VENT MELY HFA) 108 (90 Base) MCG/ACT inhaler 2 puff 2 puff, Inhalation, EVERY 6 HOURS PRN, w heezing, Starting on Thu04/29/21 at 1001, Check the dose counter on the inhaler to ensure there are doses remaining before administering. dextrose 50 % injection 25-50 mL 25-50 mL, Intravenous, EVERY 15 MIN PRN, low blood sugar, Administer over 1-5 Minutes, Starting on Thu04/29/21 at 0918, Use if have IV access, BG less than 70 mg/dL and meet dose criteria below: Dose if conscious and alert (or disorientated) and NPO = 25 mL Dose if unconscious / not alert = 50 mL Give first dose for initial blood glucose less than 70 mg/dL. If blood glucose at 15 minute recheck is les s than or equal to 100 mg/dL continue to administer carbohydrate treatment every 15 minutes, as needed, based on blood glucose and assessment parameters until blood glucose level is above 100 mg/dL. Vesicant. glucagon injection 1 mg(Linked Group 1) 1 mg, Subcutaneous, EVERY 15 MIN PRN, lo w blood sugar, May repeat x 1 only, Starting on Thu04/28/21 at 2213, May give SQ or IM. ONLY use glucagon IF patient has NO IV access AND is UNABLE to swallow AND blood glucose is LESS than or EQUAL to 50 mg/dL. glucose gel 15-30 g(Linked Group 1) 15-30 g, Oral, EVERY 15 MIN PRN, low blo od sugar, Starting on 04/28/21 at 2213, Give first dose for initial blood glucose less than 70 mg/dL per the dosing instructions below. If blood glucose at 15 minute rechecks is still less than or eq ual to 100 mg/dL, continue to administer doses per blood glucose parameters every 15 minutes, as needed, until blood glucose level is above 100 mg/dL. Dosing Inst ructions: ~If patient is conscious and a ble to swallow and NO enteral tube For initial BG 51-69mg/dL OR 15 minute recheck BG 51- 100 mg/dL - give 15 g For BG less than or equal to 50 mg/dL - give 30 g ~ If Enteral tube For initial BG 51-69mg/ dL OR 15 minute recheck BG 51- 100 mg/dL - give apple juice 120 mL (4 oz or 15 g of CHO) via enteral tube For BG less than or equal to 50 mg/dL - Give apple juice 240 mL (8 oz or 30 g of CHO) via entera l tube ~Oral gel is preferable for conscious and able to swallow patient. ~IF gel unavailable or patient refuses may provide apple juice per Enteral tube dosing i nstructions. Document juice on I and O flowsheet. hydrALAZINE (APRESOLINE) injection 10 mg 1923 (Given - Provider: Patricia Cobian RN) 10 mg, Intravenous, EVERY 4 HOURS PRN, h igh blood pressure, give for SBP > 160, Starting on Thu04/30/21 at 1852 lidocaine (LMX4) cream Topical, EVERY 1 HOUR PRN, pain, with VA D insertion, Starting on 04/28/21 at 2213, Apply at least 30 minutes prior to VAD insertion in divided doses as needed for size of site for insertion. MAX Dose : 2.5 g (?? of 5 g tube) Do NOT give if patient has a history of allergy to any local anesthetic or any dimitris product. Do NOT use both lidocaine intradermal/subcutaneous injection and the lidocaine cream on the same site. lidocaine 1 % 0.1-1 mL 0.1-1 mL, Other, EVERY 1 HOUR PRN, mild pain with VAD insertion, Starting on Thu04/28/21 at 2213, MAX dose 1 mL subcutaneous OR intradermal along the side of the vein in divided doses as needed for VAD insertion. Do NOT give if patient has a history of allergy to any local anesthetic or any dimitris product. Do NOT use both lidocaine intradermal/subcutaneous injection and the lidocaine cream on the same site. melatonin tablet 1 mg 2107 (Given - Provider: Brooke gupta, RN) 2328 (Given - Provider: Miguel Sheets RN) 1 mg, Oral, AT BEDTIME PRN, sleep, Start ing on 04/28/21 at 2031, Do not give unless at least 6 hours of uninterrupted sleep is expected. ondansetron (ZOFRAN) injection 4 mg(Linked Group 2) 4 mg, Intravenous, EVERY 6 HOURS PRN, na usea, vomiting, Administer over 2-5 Minutes, Starting on 04/28/21 at 3, Give IF patient unable to tolerate oral medication. This is Step 1 of nausea and vom iting management. If nausea not resolved in 15 minutes, go to Step 2 prochlorperazine (COMPAZINE). Irritant. ondansetron (ZOFRAN-ODT) ODT tab 4 mg(Linked Group 2) 4 mg, Oral, EVERY 6 HOURS PRN, nausea, v omiting, Starting on 04/28/21 at 3, This is Step 1 of nausea and vomiting management. If nausea not resolved in 15 minutes, go to Step 2 prochlorperazine (C OMPAZINE). With dry hands, peel back foi l backing and gently remove tablet. Do not push oral disintegrating tablet through foil backing. Administer immediately on tongue and oral disintegrating tablet d issolves in seconds, then swallow with saliva. Liquid not requir ed. polyethylene glycol (MIRALAX) Packet 17 g 17 g, Oral, DAILY PRN, constipation, Sta rting on 04/28/21 at 2213, If the patient has multiple PO bowel stimulant agents ordered PRN, offer in the following order per policy. Move to the next availab le step if the earlier step is ineffecti ve. Step 1 - senna; Step 2 - bisacodyl; Step 3 - milk of magnesia; Step 4 - polyethylene glycol; Step 5 - magnesium citrate. 1 Packet = 17 grams. Mix each gram wi th at least 1/2 ounce (15 mL) of water - 8 ounces for 17 g dose, 4 ounces for 8.5 g dose, 2 ounces for 4 g dose. Follow with the same volume of water. Hold for loose stools. prochlorperazine (COMPAZINE) injection 5 mg(Linked Group 3) 5 mg, Intravenous, EVERY 6 HOURS PRN, na usea, vomiting, Administer over 1-2 Minutes, Starting on 04/28/21 at 2213, IF patient unable to tolerate oral medication. This is Step 2 of nausea and vomiting management. Give if nausea not resolved 15 minutes after giving ondansetron (ZOFRAN). prochlorperazine (COMPAZINE) suppository 12.5 mg(Linked Group 3) 12.5 mg, Rectal, EVERY 12 HOURS PRN, jose alfredo sea, vomiting, Starting on 04/28/21 at 2213, This is Step 2 of nausea and vomiting management. Give if nausea not resolved 15 minutes after giving ondansetron (ZOFRAN). prochlorperazine (COMPAZINE) tablet 5 mg(Linked Group 3) 5 mg, Oral, EVERY 6 HOURS PRN, vomiting, Starting on 04/28/21 at 2213, This is Step 2 of nausea and vomiting management. Give if nausea not resolved 15 minutes after giving ondansetron (ZOFRAN). senna-docusate (SENOKOT-S/PERICOLACE) 8.6-50 MG per tablet 1 tab let 1 tablet, Oral, 2 TIMES DAILY PRN, const ipation, Starting on 04/28/21 at 2213, If the patient has multiple PO bowel stimulant agents ordered PRN, offer in the following order per policy. Move to the next available step if the earlier step is ineffective. Step 1 - senna; Step 2 - bisacodyl; Step 3 - milk of magnesia; Step 4 - polyethylene glycol; Step 5 - magnesium citrate. Hold for loose stools. sodium chloride (PF) 0.9% PF flush 3 mL 3 mL, Intracatheter, EVERY 1 MIN PRN, li ne flush, other, to ensure patency or to lock dormant line, Starting on 04/28/21 at 2213 Linked Groups Order Group 1: glucose gel 15-30 gJump to med 15-30 g, Oral, EVERY 15 MIN PRN, low blo od sugar, Starting on 04/28/21 at 2213
Give first dose for initial blood glucose less than 70 mg/dL per the dosing instructions below. If bl ood glucose at 15 minute rechecks is sti ll less than or equal to 100 mg/dL, continue to administer doses per blood glucose parameters every 15 minutes, as needed, until blood glucose level is above 100 mg/dL. Dosing Instructions:&n bsp;~If patient is conscious and able to swallow and NO enteral tube For initial BG 51-69mg/dL OR 15 minute recheck BG 51- 100 mg/dL - give 1 5 g For BG less than or equal to 50 mg/dL - give 30 g ~ If Enteral tube For initial BG 51-69mg/dL OR 15 minute recheck BG 51- 100 mg/dL - give apple juice 120 mL (4 oz or 15 g of CHO) via enteral tube For BG le ss than or equal to 50 mg/dL - Give apple juice 240 mL (8 oz or 30 g of CHO) via enteral tube ~Oral gel is preferable for conscious and able to swall ow patient. ~IF gel unavailable or patient refuses may provide apple juice per Enteral tube dosing instructions. Document juice on I and O flowsheet.
Or dextrose 50 % injection 25-50 mL (CANCELED) 25-50 mL, Intravenous, EVERY 15 MIN PRN, low blood sugar, Administer over 1-5 Minutes, Starting on 04/28/21 at 2213
Use if have IV access, BG less than 70 mg/dL and meet dose criteria below: Dose if conscious and alert (or di sorientated) and NPO = 25 mL Dose if unconscious / not alert = 50 mL Give first dose for initial blood glucose less than 70&nb sp; mg/dL. If blood gluc ose at 15 minute recheck is less than or equal to 100 mg/dL continue to administer carbohydrate treatment every 15 minutes, as needed, based on blood glucose and assessment parameters until blood glucose level is above 100 mg/dL. Vesicant.
Or glucagon injection 1 mgJump to med 1 mg, Subcutaneous, EVERY 15 MIN PRN, lo w blood sugar, May repeat x 1 only, Starting on 04/28/21 at 2213
May give SQ or IM. ONLY use glucagon IF patient has NO IV access AND is UNABLE to swa llow AND blood glucose is LESS than or E QUAL to 50 mg/dL.
Group 2: ondansetron (ZOFRAN-ODT) ODT tab 4 mgJump to med 4 mg, Oral, EVERY 6 HOURS PRN, nausea, v omiting, Starting on 04/28/21 at 2213
This is Step 1 of nausea and vomiting management. If nausea not resolved in 15 minutes, go to Step 2 prochlorperazine (COMPAZINE).&nb sp;With dry hands, peel back foil backing and gently remove tablet. Do not push oral disintegrating tablet through foil backing. Administer immediately on ton colin and oral disintegrating tablet disso lves in seconds, then swallow with saliva. Liquid not required.
Or ondansetron (ZOFRAN) injection 4 mgJump to med 4 mg, Intravenous, EVERY 6 HOURS PRN, na usea, vomiting, Administer over 2-5 Minutes, Starting on 04/28/21 at 2213
Give IF patient unable to tolerate oral medication. This is Step 1 of nausea and vomiting management. If na usea not resolved in 15 minutes, go to Step 2 prochlorperazine (COMPAZINE). Irritant.
Group 3: prochlorperazine (COMPAZINE) injection 5 mgJump to med 5 mg, Intravenous, EVERY 6 HOURS PRN, na usea, vomiting, Administer over 1-2 Minutes, Starting on 04/28/21 at 2213
IF patient unable to tolerate oral medication. This is Step 2 of nausea and vomiting management. Give if nausea not resolved 15 minutes after giving ondansetron (ZOFRAN).
Or prochlorperazine (COMPAZINE) tablet 5 mgJump to med 5 mg, Oral, EVERY 6 HOURS PRN, vomiting, Starting on 04/28/21 at 2213
This is Step 2 of nausea and vomiting management. Give if nausea not resolved 15 minutes after giving ondansetron (ZOFRAN).
Or prochlorperazine (COMPAZINE) suppository 12.5 mgJump to med 12.5 mg, Rectal, EVERY 12 HOURS PRN, jose alfredo sea, vomiting, Starting on 04/28/21 at 2213
This is Step 2 of nausea and vomiting management. Give if nausea not resolved 15 minutes after giving ondansetron (ZOFRAN).
documented in this encounter Care Teams Headlight Adjuster Relationship Specialty Start Date End Date Anatoliy Ortiz, PCP - General 05/14/12 Heath More PCP - Internal Medicine INTERNAL MEDICINE - 01/06/14 MD Andreas ENDOCRINOLOGY, [facility] DIABETES [facility] METABOLISM [facility] [address] [facility] [address] [id number] Peter Gipson PCP - Urology 04/02/15 MD Jordan [facility] [address] [place] [id number] Peter Mcmullen Assigned Musculoskeletal 06/01/20 MD Mahendra Provider [address] [facility] [address] [place], [place] [address] Hallie Maldonado, Assigned Heart and 02/22/2105/18 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
--- OUTSIDE RECORDS SUMMARY | 2022-05-02 12:29 | XMS_ITS | Encounter Summary ---
:1950 Author Organization [facility] Address [address] [facility] [place] [address] Care Team Providers Name Role Phone Anatoliy Jackson MD Primary Care Provider Heath More MD Unavailable Peter Gipson MD Unavailable Peter Mcmullen MD Unavailable Hallie Maldonado APRN [employer] Unavailable [phone] Encounter Details Date Type Department Care Team Description 04/28/2021 Travel Social History Tobacco Use Types Packs/Day [...] 05/15/2022 Hospital Encounter Surgery Singh Torres MD [facility] [address] [place] [address] [place] [place] [id number] (Wo rk) 05/15/2022 Surgery Surgery Neo Torres MD BLEPHAROPLASTY BILATERAL [facility] PTOSIS REPAIR BILATERAL [address] [place] [address] [place] [id number] (Wo rk) 06/25/2022 Ancillary Procedure Cardiology Kirk Silver MD [address] [place] [address] (Wo rk) Scheduled Procedures Name Priority Associated [...] on filedocumented in this encounter Care Teams Universal Grinder Set Up Operator Relationship Specialty Start Date End Date Anatoliy Jackson PCP - General 05/14/12 Heath More PCP - Internal Medicine INTERNAL MEDICINE - 01/06/14 MD Andreas ENDOCRINOLOGY, ENDOCRINE [facility]IC DIABETES & [facility]ABOLISM [facility] [address] [place] [id number] Peter Gipson PCP - Urology 04/02/15 MD Jordan [facility] [address] [place] [address] [address] [place] [address] Peter Mcmullen Assigned Musculoskeletal 06/01/20 MD Mahendra Provider [address] [place] [address] Hallie Maldonado, Assigned Heart and 02/22/2105/18 SHOE SINGER [employer] Vascular Provider [address] [place] [address] documented as of this encounter
--- OUTSIDE RECORDS SUMMARY | 2022-05-02 12:30 | XMS_ITS | Encounter Summary ---
:1950 Author Organization House Address [address] [facility] [place] [address] Care Team Providers Name Role Phone Anatoliy Jackson MD Primary Care Provider Heath More MD Unavailable Peter Gipson MD Unavailable Peter Mcmullen MD Unavailable Hallie Maldonado APRN COMMUNITY BOARD MEMBER Unavailable [phone] Reason for Referral Rehab Therapy Cardiac Therapy (Routine) - Closed Specialty Diagnoses / Procedures Referred By Contact Refer red To Contact CARDIAC REHAB Diagnoses Coronary artery disease involving nikolai coronary artery of nikolai heart without angina pectoris [address] [place] [address] Phone: Referral ID Status Reason Start Date Expiration Date Visits Requ ested Visits Authorized [id number] Closed 05/01/2021 08/09/2021 36 36 Reason for Visit Auth/Cert Specialty Diagnoses / Procedures Referred By Contact Refer red To Contact Surgery Diagnoses CAD (coronary artery disease) CAD (coronary artery disease) [I25.10] Sh Periop Servi uvaldo Procedures ZZC CABG, VEIN, SINGLE ZZC CABG, VEIN, TWO ZZC CABG, VEIN, THREE ZZC CABG, VEIN, FOUR ZZC CABG, VEIN, FIVE ZZC CABG, VEIN, SIX+ ZZC CABG, ARTERY-VEIN, SINGLE ZZC CABG, ARTERY-VEIN, TWO ZZC CABG, ARTERY-VEIN, THREE [address] CABG, ARTERY-VEIN, FOUR ZZC CABG, ARTERY-VEIN, FIVE ZZC CABG, ARTERY-VEIN, SIX+ ZZC CABG, ARTERIAL, SINGLE ZZC CABG, ARTERIAL, TWO ZZC CABG, ARTERIAL, THREE ZZC CABG, ARTERIAL, FOUR+ CORONARY ARTERY BYPASS GRAFT (CABG) LL2 [place] [id number] Phone: Referral ID Status Reason Start Date Expiration Date Visits Requ ested Visits Authorized [id number] 1 1 Encounter Details Date Type Department Care Team Description 04/19/2021 - Hospital Encounter [facility] Kendra, S/P CABG (coronary artery bypass graft) (Primary Dx); 04/25/2021 Gaby Fatima CAD (coronary a rtery disease); Intermediate Care MD [place] Coronary artery disease involving nikolai coronary artery of nikolai heart without angina pectoris; [address] Type 2 diabetes mellitus wit h other circulatory complication, with long-term current use of insulin (H); [place] [id number] MOSES Jenkins R[address] S/P coronary artery stent placement [phone] [place] [id number] Social History Tobacco Use Types Packs/Day Years [...] been in contact with No / Unsure 04/19/2021 4:51 AM CDT someone who was confirmed or 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 documented as of this encounter Last Filed Vital Signs Vital Sign Reading Time Taken Comments Blood Pressure 128/53 04/25/2021 11:25 AM CDT Pulse 59 04/25/2021 11:25 AM CDT Temperature 36.9 ??C (98.4 ??F) 04/25/2021 11:25 AM CDT Respiratory Rate 20 04/25/2021 11:25 AM CDT Oxygen Saturation 93% 04/25/2021 11:25 AM CDT Inhaled Oxygen Concentration - - Weight 99.7 kg (219 lb 12.8 oz) 04/25/2021 6:25 AM CDT Height 180.3 cm (5' 11) 04/19/2021 6:04 AM CDT Body Mass Index 30.66 04/19/2021 6:04 AM CDT documented in this encounter Discharge Summaries Brenda Willoughby PA-C - 04/25/2021 1:24 PM CDT Discharge Summary Ceci Lind Date of : 1950 Age: [age] year old Date of Admission: 04/19/2021 Date of Discharge: 04/25/2021 1:37 PM Admitting Physician: Kushal Gardner MD Discharge Physician: Dr. Kushal Gardner Discharging Service: Cardiovascular and Thoracic Surgery Home clinic: [facility] Primary Provider: Anatoliy Jackson Admission Diagnoses: CAD (coronary artery disease) [I25.10] Coronary artery disease involving nikolai coronary artery of nikolai heart without angina pectoris [I25.10] Discharge Diagnosis: Patient Active Problem List Diagnosis ??? Type 2 diabetes mellitus with circulatory disorder (H) ? ? Hyperlipidemia LDL goal <70 ??? Essential hypertension ??? Peripheral vascular disease (H) ??? Coronary artery disease involving nikolai coronary artery of nikolai heart without angina pectoris ??? Angina pectoris (H) ??? S/P coronary artery stent placement ??? Chronic renal insufficiency, stage 3 (moderate) ??? 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 Claudication of both lower extremities (H) ??? Dyspnea on exertion ??? Abnormal stress test ??? Status post coronary angiogram ??? CAD (coronary artery disease) ??? Weakness of both legs ??? Near syncope ??? Anemia, unspecified type ??? Weakness ??? S/P CABG (coronary artery bypass graft) ??? Fluid overload ??? Transient hyperglycemia post procedure Discharge Disposition: Discharged to home Condition on Discharge: Discharge condition: Stable Discharge vitals: Blood pressure 128/53, pulse 59, temperature 98.4 ??F (36.9 ??C), temperature source Oral, resp. rate 20, height 1.803 m (5' 11), weight 99.7 kg (219 lb 12.8 oz), SpO2 93 %. Code status on discharge: Full Code Procedures: On 04/19/21 Mr. Lind successfully underwent Coronary artery bypass grafting x 3 with left internalmammary artery to the left anterior descending, reverse saphenous vein graft to the posterior descending artery, reverse saphenous vein graft to the obtuse marginal 2 artery, endoscopic vein harvest from the left lower extremity, intraoperative KARIE by Dr. Kushal Gardner. Medications Prior to Admission: Medications Prior to Admission Medication Sig Dispense Refill Last Dose ??? carvedilol (COREG) 6.25 MG tablet Take 1 tablet (6.25 mg) by mouth 2 times daily (with meals) 120 tablet 3 04/19/2021 at AM ??? cyanocobalamin (VITAMIN B-12) 1000 MCG tablet Take 1,000 mcg by mouth daily 04/18/2021 at AM ??? gabapentin (NEURONTIN) 300 MG capsule Take 600 mg by mouth 2 times daily At 8:30pm and at bedtime 04/18/2021 at PM ??? HEMP OIL OR EXTRACT OR OTHER CBD CANNABINOID, NOT MEDICAL CANNABIS, Apply 1 Application topically 2 times daily as needed (Arthritis on right knee and wrist) 04/18/2021 at PRN ??? melatonin 3 MG CAPS Take 3 mg by mouth At Bedtime 04/18/2021 at PM ??? Polyethylene Glycol 400 (BLINK TEARS OP) Place 1 drop into both eyes daily as needed 04/18/2021 athas here ??? rosuvastatin (CRESTOR) 40 MG tablet Take 1 tablet (40 mg) by mouth every evening 90 tablet 3 04/18/2021 at PM ??? sertraline (ZOLOFT) 50 MG tablet Take 50 mg by mouth daily Sleep doctor recommends taking at bedtime 04/18/2021 at AM ??? Turmeric 500 MG CAPS Take 1 capsule by mouth every morning 04/18/2021 at AM ??? Continuous Blood Gluc Sensor (DEXCOM G6 SENSOR) MISC ??? ONE TOUCH ULTRA TEST STRP as directed 100 prn ??? SYRINGE B-D MICRO FINE 1/2 CC SYRINGES as directed 100 prn ??? [DISCONTINUED] amLODIPine (NORVASC) 2.5 MG tablet Take 1 tablet (2.5 mg) by mouth daily Take 1 tablet (2.5mg) in addition to 1 tablet Amlodipine 5mg for a total dose of 7.5mg 90 tablet 1 04/18/2021 at PM ??? [DISCONTINUED] amLODIPine (NORVASC) 5 MG tablet Take 1 tablet (5 mg) by mouth daily Take 1 tablet (5mg) in addition to 1 tablet 2.5mg to total 7.5mg 90 tablet 0 04/18/2021 at PM ??? [DISCONTINUED] aspirin (ASPIRIN) 81 MG EC tablet Take 81 mg by mouth daily 04/19/2021 at AM ??? [DISCONTINUED] Copper Gluconate 2 MG CAPS Take 1 capsule by mouth daily 04/18/2021 at AM ??? [DISCONTINUED] Ferrous Sulfate 50 MG TBCR Take 50 mg by mouth daily 04/18/2021 at am ??? [DISCONTINUED] insulin glargine (LANTUS VIAL) 100 UNIT/ML vial Inject 45 Units Subcutaneous At Bedtime 04/18/2021 at PM ??? [DISCONTINUED] Insulin Lispro (HUMALOG SC) Inject Subcutaneous 3 times daily (with meals) Sliding scale + carb coverage ??? [DISCONTINUED] lisinopril-hydrochlorothiazide (ZESTORETIC) 20-12.5 MG tablet Take 1 tablet by mouth daily 90 tablet 2 04/18/2021 at PM ??? [DISCONTINUED] nitroGLYcerin (NITROSTAT) 0.[address] 1 tablet (0.4 mg) under the tongue every 5 minutes as needed for chest pain (If pain is not relieved 5 minutes after 1st dosecall 911) 25 tablet 3 at never used Discharge Medications: Current Discharge Medication List START taking these medications Details acetaminophen (TYLENOL) 325 MG tablet Take [...] Diagnoses: S/P CABG (coronary artery bypass graft) famotidine (PEPCID) 20 MG tablet Take 1 tablet (20 mg) by mouth 2 times daily for 14 days Qty: 28 tablet, Refills: 0 Associated Diagnoses: S/P CABG (coronary artery bypass graft) lisinopril (ZESTRIL) 40 MG tablet Take 1 tablet (40 mg) by mouth daily Qty: 30 tablet, Refills: 1 Associated Diagnoses: S/P CABG (coronary artery bypass graft) methocarbamol (ROBAXIN) 500 MG tablet Take 1 tablet (500 mg) by mouth every 6 hours as needed for muscle spasms Qty: 30 tablet, Refills: 0 Associated Diagnoses: S/P CABG (coronary artery bypass graft) oxyCODONE (ROXICODONE) 5 MG tablet Take 1-2 tablets (5-10 mg) by mouth every 4 hours as needed for moderate to severe pain Qty: 10 tablet, Refills: 0 Associated Diagnoses: S/P CABG (coronary artery bypass graft) polyethylene glycol (MIRALAX) 17 GM/Dose powder Take 17 g by mouth daily Qty: 510 g, Refills: 0 Associated Diagnoses: S/P CABG (coronary artery bypass graft) senna-docusate (SENOKOT-S/PERICOLACE) 8.6-50 MG tablet Take 1 tablet by mouth 2 times daily as needed for constipation Qty: 20 tablet, Refills: 0 Associated Diagnoses: S/P CABG (coronary artery bypass graft) CONTINUE these medications which have CHANGED Details amLODIPine (NORVASC) 10 MG tablet Take 1 tablet (10 mg) by mouth daily Qty: 30 tablet, Refills: 3 Associated Diagnoses: S/P CABG (coronary artery bypass graft) ferrous sulfate 140 (45 Fe) MG TBCR CR tablet Take 1 tablet (140 mg) by mouth daily Qty: 30 tablet, Refills: 1 Associated Diagnoses: S/P CABG (coronary artery bypass graft) insulin glargine (LANTUS VIAL) 100 UNIT/ML vial Inject 70 Units Subcutaneous At Bedtime Associated Diagnoses: Type 2 diabetes mellitus with other circulatory complication, with long-term current use of insulin (H) insulin lispro (HUMALOG) 100 UNIT/ML vial 1 [...] these medications which have NOT CHANGED Details carvedilol (COREG) 6.25 MG tablet Take 1 tablet (6.25 mg) by mouth 2 times daily (with meals) Qty: 120 tablet, Refills: 3 Associated Diagnoses: Coronary artery disease involving nikolai coronary artery of nikolai heart without angina pectoris cyanocobalamin (VITAMIN B-12) 1000 MCG tablet Take 1,000 mcg by mouth daily gabapentin (NEURONTIN) 300 MG capsule Take 600 mg by mouth 2 times daily At 8:30pm and at bedtime HEMP OIL OR EXTRACT OR OTHER CBD CANNABINOID, NOT MEDICAL CANNABIS, Apply 1 Application topically 2 times daily as needed (Arthritis on right knee and wrist) melatonin 3 MG CAPS Take 3 mg by mouth At Bedtime Polyethylene Glycol 400 (BLINK TEARS OP) Place 1 drop into both eyes daily as needed rosuvastatin (CRESTOR) 40 MG tablet Take 1 tablet (40 mg) by mouth every evening Qty: 90 tablet, Refills: 3 Associated Diagnoses: Coronary artery disease involving nikolai coronary artery of nikolai heart without angina pectoris; Hyperlipidemia LDL goal [...] 100, Refills: prn STOP taking these medications aspirin (ASPIRIN) 81 MG EC tablet Comments: Reason for Stopping: Copper Gluconate 2 MG CAPS Comments: Reason for Stopping: lisinopril-hydrochlorothiazide (ZESTORETIC) 20-12.5 MG tablet Comments: Reason for Stopping: nitroGLYcerin (NITROSTAT) 0.4 MG sublingual tablet Comments: Reason for Stopping: Consultations: Nutrition, Customer Service And Sales Consultant, hospitalist Brief History of Illness: Mr. Lind is a very pleasant 70-year-old gentleman with history of coronary artery disease, statuspost PCI in 2014, with diabetes, hypertension and hyperlipidemia, who recently underwent a coronary angiogram for abnormal stress test involving the entire inferior and inferolateral wall. The coronaryangiogram demonstrated severe 3-vessel coronary artery disease with hemodynamically significant LAD disease, significant PDA disease and totally occluded OM2. He was taken to the operating room today for coronary artery bypass grafting. Hospital Course: On 04/19/21 Mr. Lind successfully underwent Coronary artery bypass grafting x [...] 6 with the help of his family. Significant Results: Lab Results Component Value Date WBC 10.7 04/25/2021 WBC 8.8 01/02/2021 Lab Results Component Value Date RBC 2.95 04/25/2021 RBC 3.93 01/02/2021 Lab Results Component Value Date HGB 8.8 04/25/2021 HGB 11.3 01/02/2021 Lab Results Component Value Date HCT 26.8 04/25/2021 HCT 34.5 01/02/2021 No components found for: MCT Lab Results Component Value Date MCV 91 04/25/2021 MCV 88 01/02/2021 Lab Results Component Value Date MCH 29.8 04/25/2021 MCH 28.8 01/02/2021 Lab Results Component Value Date MCHC 32.8 04/25/2021 MCHC 32.8 01/02/2021 Lab Results Component Value Date RDW 13.0 04/25/2021 RDW 12.9 01/02/2021 Lab Results Component Value Date PLT 254 04/25/2021 PLT 202 01/02/2021 Last Basic Metabolic Panel: Lab Results Component Value Date NA 144 04/25/2021 NA 142 01/02/2021 Lab Results Component Value Date POTASSIUM 4.2 04/25/2021 POTASSIUM 4.8 01/02/2021 Lab Results Component Value Date CHLORIDE 112 04/25/2021 CHLORIDE 112 01/02/2021 Lab Results Component Value Date RICHIE 8.5 04/25/2021 RICHIE 8.6 01/02/2021 Lab Results Component Value Date CO2 29 04/25/2021 CO2 26 01/02/2021 Lab Results Component Value Date BUN 56 04/25/2021 BUN 40 01/02/2021 Lab Results Component Value Date CR 1.34 04/25/2021 CR 1.56 01/02/2021 Lab Results Component Value Date GLC 261 04/25/2021 GLC 180 04/25/2021 GLC 115 01/02/2021 Pending Results: None Discharge Instructions and Follow-Up: Discharge diet: Regular Discharge activity: Daily weights: Call if weight gain 2-3 lbs over 24 hours or if greater than 5 lbs in 1 week. No lifting more than 10 lbs for 8-12 weeks. No driving for 1 month. Call for pain medication refill. Call for temperature greater than 101.0 Daily shower with antibacterial soap. Discharge follow-up: *Follow up primary care provider in 7-10 days after discharge in order to review your medication, vital signs, obtain any necessary lab work your doctor may want, and to update them on your hospitalization and medical issues. *Follow up with Brenda/Shavon/Deepak Snell with Dr Gardner, heart surgeon, at [facility] at [facility] [address] on 05/08/21 at 2:30 PM. If any questions or concerns call [phone]. ??You will see us once at this visit and then if everything is going well you will not need to see us again. ??You will follow snf with your electro optics engineer. *Follow up with Dr Solis, electro optics engineer, 06/12/21 at 0845 at [facility]. This is who you will follow with snf about your heart issues. [phone]. Outpatient therapy: Cardiac rehab Home Care agency: None Supplies and equipment: None Lines and drains: None Wound care: Wash incision daily with antibacterial soap Other instructions: None Associated attestation - Kushal Gardner MD - 04/29/2021 10:42 AM CDT Attestation: Physician Attestation I, Kushal Gardner MD, have reviewed and discussed with the advanced practice provider their discharge plan for Ceci Lind. I did not participate in a shared visit by interviewing or examining the patient and this should be billed as an advanced practice provider only discharge. Kushal Gardner Date of Service (when I saw the patient): I did not personally see this patient today. documented in this encounter Medications at Time [...] Coronary artery disease daily (with meals) involving nikolai coronary artery of nikolai heart without angina pectoris cloNIDine (CATAPRES) Take 1 tablet (0.1 60 tablet 3 021 05/17/2021 0.1 MG mg) by mouth 2 times tabletIndications: S/P daily CABG (coronary artery bypass graft) ferrous sulfate 140 (45 Take 1 tablet (140 30 tablet 1 04/1009/10/2021 Fe) MG TBCR CR mg) by mouth daily tabletIndications: S/P CABG (coronary artery bypass graft) gabapentin (NEURONTIN) Take 600 mg by mouth [...] (ROXICODONE) Take 1-2 tablets 10 tablet 0 2 021 05/01/2021 5 MG tabletIndications: (5-10 mg) [...] every tabletIndications: evening Coronary artery disease involving nikolai coronary artery of nikolai heart without angina pectoris, Hyperlipidemia LDL goal <70, S/P coronary artery stent placement senna-docusate Take 1 tablet by 20 tablet 0 04/25/2021 11/0 10/2020 (SENOKOT-S/PERICOLACE) mouth 2 times daily 8.6-50 MG as needed for tabletIndications: S/P constipation CABG (coronary artery bypass graft) documented as of this encounter Progress Notes Cierra Marie MD - 04/25/2021 11:37 AM CDT [facility] Medicine Progress Note - Hospitalist Service Date of Admission: 04/19/2021 Assessment & Plan Ceci Lind is a 70 year old male admitted on 04/19/2021. He underwent CABG x3 with lift IM to theLAD, [id number] saphenous vein graft to the PDA, reverse saphenous to the 2 obtuse marginal artery. Hospitalist consulted for postoperative diabetic management Insulin dependent Diabetes Mellitus He states he was diagnosed as progressing to type 1 Home regimen: 45 units of lantus and sliding scale but frequent dose titration. Has previously been on 74 units of Lantus. A1c of 7.0 on current regimen Managed with insulin infusion x 48 hours after CABG Currently eating a full diet of moderate carb, 100% of meals Started home regimen but remained quite hyperglycemic and hence have been titrating up Lantus. Worsening glucose up into the 400s prompted restart of insulin infusion on 04/22 Overall, the patient is using at last 33% more long acting insulin then MANAGED CARE ANALYST dosing [of note though MANAGED CARE ANALYST dosing had been fluctuating] Plan -Have placed discharge orders for insulin regimen. Will discharge with 70 units insulin daily, 1 unit insulin for 5 carbs, HD SSI. Will continue checking sugars 4 times daily before meals and bedtime. -We will need to follow-up with his primary pecan cleaner after discharge. Appears to be with [facility] system. ?? Status post 3v cabg on 04/19 Plan - defer management to [facility] ?? History of iron deficiency Acute blood loss anemia, expected postop Received ferraheme infusions as outpatient in February through his log snaker in [facility] Plan - stable after blood transfusions ? Chronic medical conditions CAD HTN HLD -Defer management of cardiac medications to CV surgery. CKD III, with baseline creatinine of 1.4 -Creatinine currently at baseline. Monitor intermittently. Diet: Diet DVT Prophylaxis: Pneumatic Compression Devices Carr Catheter: Not present Central Lines: None Code Status: Disposition Plan Expected discharge: Discharge per primary service The patient's care was discussed with the Patient. Discussed discharge insulin regimen with patient at length. Answered several questions regarding diabetes management. Time spent with patient encounter: 35 minutes Greater than 50% time spent in patient and family counseling regarding diabetes management, discharge insulin regimen, chart review, care coordination. Cierra Marie MD Hospitalist Service [facility] Securely message with the [employer] Web Console (learn more here) Text page via [facility] Paging/Directory Clinically Significant Risk Factors Present on Admission Interval History Eating well. Having BM. No nausea or vomiting. Discussed diabetes regimen at discharge. will follow up with primary pecan cleaner after discharge. Data reviewed today: I reviewed all medications, new labs and imaging results over the last 24 hours. I personally reviewed no images or EKG's today. Physical Exam Vital Signs: Temp: 98.4 ??F (36.9 ??C) Temp src: Oral BP: 128/53 Pulse: 59 Resp: 20 SpO2: 93 % O2 Device: None (Room air) Weight: 219 lbs 12.78 oz Constitutional: Alert, comfortable, no distress Cardiovascular: RRR, no significant peripheral edema Respiratory: . Lungs clear Gastrointestinal: Abdomen soft, non-tender. BS normal. No masses, organomegaly Skin: no suspicious lesions or rashes Neurologic: CN II-XII are intact Psychiatric: mentation appears normal and affect normal/bright ? Data Brenda Willoughby PA-C - 04/25/2021 9:53 AM CDT CV Surgery S: Seen lying in bed, breathing stable, tolerating diet, working with therapies, ready to discharge home O: B/P: 102/57, T: 98, P: 54, R: 20 General: NAD Heart: s1/s2, no m/r/g Lungs: course Abd: s/nt/nd Sternum: cdi Extremities: no LE edema Lab Results Component Value Date WBC 10.8 04/24/2021 WBC 8.8 01/02/2021 Lab Results Component Value Date RBC 2.87 04/24/2021 RBC 3.93 01/02/2021 Lab Results Component Value Date HGB 8.3 04/24/2021 HGB 11.3 01/02/2021 Lab Results Component Value Date HCT 25.5 04/24/2021 HCT 34.5 01/02/2021 No components found for: MCT Lab Results Component Value Date MCV 89 04/24/2021 MCV 88 01/02/2021 Lab Results Component Value Date MCH 28.9 04/24/2021 MCH 28.8 01/02/2021 Lab Results Component Value Date MCHC 32.5 04/24/2021 MCHC 32.8 01/02/2021 Lab Results Component Value Date RDW 12.6 04/24/2021 RDW 12.9 01/02/2021 Lab Results Component Value Date PLT 243 04/24/2021 PLT 202 01/02/2021 Last Basic Metabolic Panel: Lab Results Component Value Date NA 143 04/24/2021 NA 142 01/02/2021 Lab Results Component Value Date POTASSIUM 4.2 04/24/2021 POTASSIUM 4.8 01/02/2021 Lab Results Component Value Date CHLORIDE 110 04/24/2021 CHLORIDE 112 01/02/2021 Lab Results Component Value Date RICHIE 8.3 04/24/2021 RICHIE 8.6 01/02/2021 Lab Results Component Value Date CO2 30 04/24/2021 CO2 26 01/02/2021 Lab Results Component Value Date BUN 54 04/24/2021 BUN 40 01/02/2021 Lab Results Component Value Date CR 1.30 04/24/2021 CR 1.56 01/02/2021 Lab Results Component Value Date GLC 180 04/25/2021 GLC 214 04/24/2021 GLC 115 01/02/2021 A/P: POD#6??s/p Coronary artery bypass grafting x 3 with left internal mammary artery to the left anterior descending, reverse saphenous vein graft to the posterior descending artery, reverse saphenousvein graft to the obtuse marginal 2 artery, endoscopic vein harvest from the left lower extremity, intraoperative KARIE??by Dr. Kushal Gardner??on 04/19/21 Seen and discussed with Dr. Gardner. Brenda Willoughby PA-C Pager [phone] DADT Cynthia, Cierra Gonzalez MD - 04/24/2021 2:43 PM CDT [facility] Medicine Progress Note - Hospitalist Service Date of Admission: 04/19/2021 Assessment & Plan Ceci Lind is a 70 year old male admitted on 04/19/2021. He underwent CABG x3 with lift IM to theLAD, [id number] saphenous vein graft to the PDA, reverse saphenous to the 2 obtuse marginal artery. Hospitalist consulted for postoperative diabetic management Insulin dependent Diabetes Mellitus He states he was diagnosed as progressing to type 1 Home regimen: 45 units of lantus and sliding scale but frequent dose titration. Has previously been on 74 units of Lantus. A1c of 7.0 on current regimen Managed with insulin infusion x 48 hours after CABG Currently eating a full diet of moderate carb, 100% of meals Started home regimen but remained quite hyperglycemic and hence have been titrating up Lantus. Worsening glucose up into the 400s prompted restart of insulin infusion on 04/22 Overall, the patient is using at last 33% more long acting insulin then MANAGED CARE ANALYST dosing [of note though MANAGED CARE ANALYST dosing had been fluctuating] Plan -Increase to Lantus 80 units every morning - 1:5 units prandial NovoLog and high dose sliding scale -Continue to titrate insulin as needed -We will need to follow-up with his primary pecan cleaner after discharge. Appears to be with [facility] system. ?? Status post 3v cabg on 04/19 Plan - [facility] to [facility] ?? History of iron deficiency Acute blood loss anemia, expected postop Received ferraheme infusions as outpatient in February through his log snaker in [facility] Plan - stable after blood transfusions ? Chronic medical conditions CAD HTN HLD -Defer management of cardiac medications to CV surgery. CKD III, with baseline creatinine of 1.4 -Creatinine currently at baseline. Monitor intermittently. Diet: Consistent Carb 60 grams CHO per Meal Diet Snacks/Supplements Pediatric: Glucerna; Between Meals DVT Prophylaxis: Pneumatic Compression Devices Carr Catheter: Not present Central Lines: None Code Status: Full Code Disposition Plan Expected discharge: Discharge per primary service The patient's care was discussed with the Patient. Cierra Marie MD Hospitalist Service [facility] Securely message with the [employer] Web Console (learn more here) Text page via [employer] Paging/Directory Clinically Significant Risk Factors Present on Admission Interval History Eating well. Having BM. No nausea or vomiting. Blood sugars still in the 200s/300s range. Tells me he has been on Lantus 74 units previously and it had been weaned down as his sugars were getting low. Tells me that he did have increase in his physical activity recently which brought his sugars down and insulin requirements. Data reviewed today: I reviewed all medications, new labs and imaging results over the last 24 hours. I personally reviewed no images or EKG's today. Physical Exam Vital Signs: Temp: 97.5 ??F (36.4 ??C) Temp src: Oral BP: (!) 159/68 (after walk) Pulse: 59 Resp: 18SpO2: 97 % O2 Device: None (Room air) Weight: 223 lbs 8.74 oz Constitutional: Alert, comfortable, no distress Cardiovascular: RRR, no significant peripheral edema Respiratory: . Lungs clear Gastrointestinal: Abdomen soft, non-tender. BS normal. No masses, organomegaly Skin: no suspicious lesions or rashes Neurologic: CN II-XII are intact Psychiatric: mentation appears normal and affect normal/bright ? Data Brenda Willoughby PA-C - 04/24/2021 9:39 AM CDT [facility] Cardiovascular [facility] Thoracic Surgery Daily Note Assessment and Plan: POD#5 s/p Coronary artery bypass grafting x 3 with left internal mammary artery to the left anteriordescending, reverse saphenous vein graft to the posterior descending artery, reverse saphenous vein graft to the obtuse marginal 2 artery, endoscopic vein harvest from the left lower extremity, intraoperative KARIE??by Dr. Kushal Gardner on 04/19/21 -CVS: HR 60s-70s. BP 140-180s/60-70s. Pre op EF; 55-60%. Change aspirin to 324 mg, carvedilol 6.25 mg bid, rosuvastatin 40 mg. Amlodipine 10mg daily (MANAGED CARE ANALYST dose 7.5mg). Lisinopril inc 40 mg, heparin subcutaneous tid, MANAGED CARE ANALYST clonodine resumed -Resp: Extubated within protocol. Saturating well on RA. Working with IS. Continue to encourage IS, cough, deep breathing, ambulation. -Neuro: Grossly intact. Pain controlled. MANAGED CARE ANALYST zoloft resumed. -Renal: good UOP. Up about 3 kg from preoperative weight. Hx of CKD with baseline Cr: 1.3-1.4. GENO on CKD resolving. Cr/BUN 1.30. -GI: Nausea resolved. Tolerating diet. + BM. Continue bowel regimen. -: Voiding well on own -Endo: pre op a1c: 6.6. Hx of DMII, insulin dependent. Completed insulin infusion per protocol. Hospitalist following for post operative glycemic management. Lantus 70 units am, high sliding scale insulin, carb count 1:5, needs aggressive control. -FEN: replace electrolytes as needed. Na 143, K 4.2, Mg 2.9 Orders Placed This Encounter Consistent Carb 60 grams CHO per Meal Diet ?? -ID: Temp (24hrs), Av.1 ??F (36.7 ??C), Min:97.6 ??F (36.4 ??C), Max:99.4 ??F (37.4 ??C), no fevers, given unit of PRBC on 04/22 WBC: 10.8. Completed perioperative abx. Leukocytosis likely related to stress from surgery, Temp (24hrs), Av.1 ??F (36.7 ??C), Min:97.6 ??F (36.4 ??C), Max:99.4 ??F (37.4 ??C) -Heme: Hgb: 8.3 plt: 243. Acute blood loss anemia and thrombocytopenia related to surgery. Will give1u PRBC 04/22 -Proph: PCD, ASA, BB, statin, PPI, sub q heparin -Dispo: Encouraged IS/TCDB/amb. Sternal precautions. Chest tubes/TPWs removed. CXR in am tomorrow. Looking at likely discharge in 1-2 days. Needs improved BP control. Continue to monitor. Interval History: Sitting up in bed, pain controlled, breathing fine, tolerating diet, working with therapies Medications: ??? amLODIPine 10 mg Oral Daily ??? aspirin 324 mg Oral or NG Tube Daily ??? carvedilol 6.25 mg Oral BID w/meals ??? ferrous sulfate 140 mg Oral Daily ??? gabapentin 600 mg Oral BID ??? heparin ANTICOAGULANT 5,000 Units Subcutaneous Q8H ??? insulin aspart Subcutaneous QAM AC ??? insulin aspart Subcutaneous Daily with lunch ??? insulin aspart Subcutaneous Daily with supper ??? insulin aspart 1-10 Units Subcutaneous TID AC ??? insulin aspart 1-7 Units Subcutaneous At Bedtime ??? insulin glargine 70 Units Subcutaneous QAM AC ??? lisinopril 20 mg Oral Once ??? [START ON 04/25/2021] lisinopril 40 mg Oral Daily ??? pantoprazole 40 mg Oral Daily ??? polyethylene glycol 17 g Oral Daily ??? rosuvastatin 40 mg Oral QPM ??? senna-docusate 1 tablet Oral BID ??? sertraline 50 mg Oral Daily ??? sodium chloride (PF) 3 mL Intracatheter Q8H @MEDSPRN-@ Physical Exam: Vitals were reviewed Blood pressure (!) 168/71, pulse 63, temperature 97.7 ??F (36.5 ??C), resp. rate 18, height 1.803 m (5' 11), weight 101.4 kg (223 lb 8.7 oz), SpO2 90 %. Rhythm: NSR Lungs: course Cardiovascular: s1/s2, no m/r/g Abdomen: s/nt/nd Extremeties: no LE edema Incision: cdi CT: na Weight: Vitals: 04/20/21 1300 04/21/21 0600 04/22/21 0646 04/23/21 0600 Weight: 101.7 kg (224 lb 1.6 oz) 102.6 kg (226 lb 3.1 oz) 101.2 kg (223 lb 1.7 oz) 101.9 kg (224 lb 10.4 oz) 09/15/21 06 Weight: 101.4 kg (223 lb 8.7 oz) Data: Labs: Lab Results Component Value Date WBC 10.8 04/24/2021 WBC 8.8 01/02/2021 Lab Results Component Value Date RBC 2.87 04/24/2021 RBC 3.93 01/02/2021 Lab Results Component Value Date HGB 8.3 04/24/2021 HGB 11.3 01/02/2021 Lab Results Component Value Date HCT 25.5 04/24/2021 HCT 34.5 01/02/2021 No components found for: MCT Lab Results Component Value Date MCV 89 04/24/2021 MCV 88 01/02/2021 Lab Results Component Value Date MCH 28.9 04/24/2021 MCH 28.8 01/02/2021 Lab Results Component Value Date MCHC 32.5 04/24/2021 MCHC 32.8 01/02/2021 Lab Results Component Value Date RDW 12.6 04/24/2021 RDW 12.9 01/02/2021 Lab Results Component Value Date PLT 243 04/24/2021 PLT 202 01/02/2021 Last Basic Metabolic Panel: Lab Results Component Value Date NA 143 04/24/2021 NA 142 01/02/2021 Lab Results Component Value Date POTASSIUM 4.2 04/24/2021 POTASSIUM 4.8 01/02/2021 Lab Results Component Value Date CHLORIDE 110 04/24/2021 CHLORIDE 112 01/02/2021 Lab Results Component Value Date RICHIE 8.3 04/24/2021 RICHIE 8.6 01/02/2021 Lab Results Component Value Date CO2 30 04/24/2021 CO2 26 01/02/2021 Lab Results Component Value Date BUN 54 04/24/2021 BUN 40 01/02/2021 Lab Results Component Value Date CR 1.30 04/24/2021 CR 1.56 01/02/2021 Lab Results Component Value Date GLC 208 04/24/2021 GLC 214 04/24/2021 GLC 115 01/02/2021 CXR: pending official read, trace pleural effusions Seen and discussed with Dr. Kendra Willoughby PA-C Pager #: [phone] Laureen Gonzalez NP - 04/23/2021 11:37 PM CDT Hospitalist Cross Cover: Patient requesting gabapentin for restless legs. He takes differently at home; he has received 2 600- mg doses today with last dose at 2100. Plan: - may have melatonin - split gabapentin as at home starting 04/24/2021 Laureen Gonzalez APRN, [employer] Hospitalist Service, [facility] Text Page Pager: [phone] Deepak Massey PA-C - 04/23/2021 11:27 AM CDT [facility] Cardiovascular and Thoracic Surgery Daily Note Assessment and Plan: POD#4 s/p Coronary artery bypass grafting x 3 with left internal mammary artery to the left anteriordescending, reverse saphenous vein graft to the posterior descending artery, reverse saphenous vein graft to the obtuse marginal 2 artery, endoscopic vein harvest from the left lower extremity, intraoperative KARIE??by Dr. Kushal Gardner on 04/19/21 -CVS: HR 60s-70s. BP 140-180s/60-70s. Pre op EF; 55-60%. Change aspirin to 324 mg, will change lopressor back to carvedilol 6.25 mg bid (increase in dose), lasix 20 mg IV daily, rosuvastatin 40 mg. Amlodipine 10mg daily (MANAGED CARE ANALYST dose 7.5mg). Lisinopril 20 mg, Chest tubes and TPWs removed, heparin subcutaneous tid, MANAGED CARE ANALYST pt was also on clonodine bid which was discontinued MANAGED CARE ANALYST -Resp: Extubated within protocol. Saturating well on RA. Working with IS. Continue to encourage IS, cough, deep breathing, ambulation. -Neuro: Grossly intact. Pain controlled. MANAGED CARE ANALYST zoloft resumed. -Renal: good UOP. Up about 3 kg from preoperative weight. Hx of CKD with baseline Cr: 1.3-1.4. GENO on CKD resolving. Cr/BUN 1.34/53. -GI: Nausea resolved. Tolerating diet. No BM. Continue bowel regimen. -: Voiding well on own -Endo: pre op a1c: 6.6. Hx of DMII, insulin dependent. Completed insulin infusion per protocol. Hospitalist following for post operative glycemic management. Lantus 70 units am, high sliding scale insulin, carb count 1:5 -FEN: replace electrolytes as needed. Na 145, K 4.2, Mg 2.9 Orders Placed This Encounter Consistent Carb 60 grams CHO per Meal Diet -ID: Temp (24hrs), Av.6 ??F (37 ??C), Min:97.8 ??F (36.6 ??C), Max:99.9 ??F (37.7 ??C), no fevers, given unit of PRBC on 04/22 WBC: 13.9. Completed perioperative abx. Leukocytosis likely related to stress from surgery -Heme: Hgb: 8.7 plt: 238. Acute blood loss anemia and thrombocytopenia related to surgery. Will give1u PRBC 04/22 -Proph: PCD, ASA, BB, statin, PPI, sub q heparin -Dispo: Encouraged IS/TCDB/amb. Sternal precautions. Chest tubes/TPWs removed. CXR in am tomorrow. Looking at likely discharge in 1-2 days. Needs improved BP control, BM and management of DM. Continue to monitor. Interval History: States that pain is being controlled. Denies any hallucinations. Breathing is ok. Working with IS. Appetite is ok. Denies any nausea. +flatus/-BM, denies any popping/clicking in his breast bone, ambulating, slept ok last night Medications: ??? amLODIPine 10 mg Oral Daily ??? aspirin 162 mg Oral or NG Tube Daily ??? gabapentin 600 mg Oral BID ??? heparin ANTICOAGULANT 5,000 Units Subcutaneous Q8H ??? insulin aspart Subcutaneous QAM AC ??? insulin aspart Subcutaneous Daily with lunch ??? insulin aspart Subcutaneous Daily with supper ??? insulin aspart 1-10 Units Subcutaneous TID AC ??? insulin aspart 1-7 Units Subcutaneous At Bedtime ??? insulin glargine 70 Units Subcutaneous QAM AC ??? lisinopril 20 mg Oral Daily ??? metoprolol tartrate 25 mg Oral BID ??? pantoprazole 40 mg Oral or NG Tube Daily Or ??? pantoprazole 40 mg Oral Daily ??? polyethylene glycol 17 g Oral Daily ??? rosuvastatin 40 mg Oral QPM ??? senna-docusate 1 tablet Oral BID ??? sertraline 50 mg Oral Daily ??? sodium chloride (PF) 3 mL Intracatheter Q8H acetaminophen, bisacodyl, dextrose, glucose OR dextrose OR glucagon, hydrALAZINE, HYDROmorphone OR HYDROmorphone, lidocaine 4%, lidocaine (buffered or not buffered), magnesium hydroxide, methocarbamol, naloxone OR naloxone OR naloxone OR naloxone, ondansetron OR ondansetron, oxyCODONE, sodium chloride (PF) Physical Exam: Vitals were reviewed Blood pressure (!) 180/71, pulse 75, temperature 98.1 ??F (36.7 ??C), temperature source Oral, resp.rate 14, height 1.803 m (5' 11), weight 101.9 kg (224 lb 10.4 oz), SpO2 91 %. Gen: lying in bed, comfortable, -O2 Lungs: CTA, IS 1500 ml Cardiovascular: RRR, telemetry SR 60s, -edema LE Abdomen: BS+, NT/ND, soft Derm: sternal incision D/I L LE incisions D/I CT removed Echo (01/02/21) - EF 55-60% No regional WMA RV systolic pressure is elevated, mild pulmonary HTN Trace mitral regurg Trace to mild tricuspid regurg No pericardial effusion Carotid US (04/16/21) - 50-69% stenosis of R ICA Less than 50% stenosis of L ICA Weight: Vitals: 04/20/21 0445 04/20/21 1300 04/21/21 0600 04/22/21 0646 Weight: 102.4 kg (225 lb 12 oz) 101.7 kg (224 lb 1.6 oz) 102.6 kg (226 lb 3.1 oz) 101.2 kg (223 lb 1.7 oz) 04/23/21 0600 Weight: 101.9 kg (224 lb 10.4 oz) Data: Labs: Lab Results Component Value Date WBC 12.7 04/22/2021 WBC 8.8 01/02/2021 Lab Results Component Value Date RBC 2.32 04/22/2021 RBC 3.93 01/02/2021 Lab Results Component Value Date HGB 6.8 04/22/2021 HGB 11.3 01/02/2021 Lab Results Component Value Date HCT 20.8 04/22/2021 HCT 34.5 01/02/2021 No components found for: MCT Lab Results Component Value Date MCV 90 04/22/2021 MCV 88 01/02/2021 Lab Results Component Value Date MCH 29.3 04/22/2021 MCH 28.8 01/02/2021 Lab Results Component Value Date MCHC 32.7 04/22/2021 MCHC 32.8 01/02/2021 Lab Results Component Value Date RDW 13.0 04/22/2021 RDW 12.9 01/02/2021 Lab Results Component Value Date PLT 182 04/22/2021 PLT 202 01/02/2021 Last Basic Metabolic Panel: Lab Results Component Value Date NA 141 04/22/2021 NA 142 01/02/2021 Lab Results Component Value Date POTASSIUM 4.5 04/22/2021 POTASSIUM 4.8 01/02/2021 Lab Results Component Value Date CHLORIDE 110 04/22/2021 CHLORIDE 112 01/02/2021 Lab Results Component Value Date RICHIE 8.1 04/22/2021 RICHIE 8.6 01/02/2021 Lab Results Component Value Date CO2 30 04/22/2021 CO2 26 01/02/2021 Lab Results Component Value Date BUN 57 04/22/2021 BUN 40 01/02/2021 Lab Results Component Value Date CR 1.47 04/22/2021 CR 1.56 01/02/2021 Lab Results Component Value Date GLC 326 04/22/2021 GLC 115 01/02/[address] Duran and Dr Richards and plans made. Deepak Massey PA-C Yasir Altamirano, - 04/23/2021 8:16 AM CDT [facility] Medicine Progress Note - Hospitalist Service Date of Admission: 04/19/2021 Assessment & Plan Insulin requiring Diabetes Mellitus He states he was diagnosed as progressing to type 1 Home regimen: 45 units of lantus and sliding scale but frequent dose titration A1c of 6.6 on current regimen Managed to insulin infusion x 48 hours after CABG Currently eating a full diet of moderate carb, 100% of meals Started home regimen but remains very hyperglycemic which is very odd given his A1c of 6.6-7.2 whichimplies good control Worsening glucose up into the 400s prompted restart of insulin infusion on 04/22 Overall, the patient is using at last 33% more long acting insulin then baseline, which is atypical with a hemoglobin A1c Plan - given needed 46 units overnight via insulin Gtt (along with 55 units of lantus given yesterday) did increase lantus to 70 units - wean off insulin gtt today - 1:5 units prandial and high dose sliding scale - pharmacy consult to verify home insulin orders again - attempt to get records from primary [facility] ?? Status post 3v cabg on 04/19 Plan - defer management to [facility] ?? History of iron deficiency Received ferraheme infusions as outpatient in February through his log snaker in [facility] Plan - stable after blood transfusions ? Chronic medical conditions CAD HTN HLD CKD III, with baseline creatinine of 1.4 ?? Diet: Consistent Carb 60 grams CHO per Meal Diet Snacks/Supplements Pediatric: Glucerna; Between Meals DVT Prophylaxis: Pneumatic Compression Devices Carr Catheter: Not present Central Lines: None Code Status: Full Code Disposition Plan Expected discharge: 04/24/2021 recommended to prior living arrangement once clared by primary team. The patient's care was discussed with the Patient. Yasir Altamirano DO Hospitalist Service [facility] Securely message with the [employer] (learn more here) Text page via [employer] Paging/Directory Clinically Significant Risk Factors Present on Admission Interval History BS improved after insulin infusion, which is now turned off. No other complaints. Today he thinks hedoe 1:5 units per g carb at home Data reviewed today: I reviewed all medications, new labs and imaging results over the last 24 hours. I personally reviewed no images or EKG's today. Physical Exam Vital Signs: Temp: 97.5 ??F (36.4 ??C) Temp src: Oral BP: (!) 164/73 Pulse: 65 Resp: 14 SpO2: 95 % O2 Device: Nasal cannula Oxygen Delivery: 2 LPM Weight: 224 lbs 10.38 oz Constitutional: healthy, alert and no distress Head: Normocephalic. No masses, lesions, tenderness or abnormalities Neck: Neck supple. No adenopathy. Thyroid symmetric, normal size,, Carotids without bruits. ENT: ENT exam normal, no neck nodes or sinus tenderness Cardiovascular: negative, PMI normal. No lifts, heaves, or thrills. RRR. No murmurs, clicks gallops or rub Respiratory: negative, Percussion normal. Good diaphragmatic excursion. Lungs clear Gastrointestinal: Abdomen soft, non-tender. BS normal. No masses, organomegaly : Deferred Musculoskeletal: extremities normal- no gross deformities noted, gait normal and normal muscle tone Skin: no suspicious lesions or rashes Neurologic: CN II-XII are intact Psychiatric: mentation appears normal and affect normal/bright Hematologic/Lymphatic/Immunologic: Normal cervical lymph nodes ? Data Yasir Altamirano DO - 04/22/2021 3:59 PM CDT [facility] Medicine Progress Note - Hospitalist Service Date of Admission: 04/19/2021 Assessment & Plan Insulin requiring Diabetes Mellitus He states he was diagnosed as progressing to type 1 Home regimen: 45 units of lantus and sliding scale but frequent dose titration A1c of 6.6 on current regimen Managed to insulin infusion x 48 hours after CABG Currently eating a full diet of moderate carb, 100% of meals Started home regimen but remains very hyperglycemic which is very odd given his A1c of 6.6-7.2 whichimplies good control Plan - increase lantus to 55 units today - high dose sliding scale - carb counting at 1:8 grams of carbohydrates - if continuing to have worsening blood sugars would restart the insulin infusion - attempt to get records from primary [facility] Update: BS worsening. Would place on insulin gtt, will continue lantus tomorrow and increase to 70 units. Again, strange to need 30 units over home insulin dose with an A1c that indicates good control.Discussed with pharmacy and nursing. ?? Status post 3v cabg on 04/19 Plan - [facility] to [facility] ?? History of iron deficiency Received ferraheme infusions as outpatient in February through his log snaker in [place] Plan - receiving blood transfusions today ? Chronic medical conditions CAD HTN HLD CKD III, with baseline creatinine of 1.4 ?? Diet: Consistent Carb 60 grams CHO per Meal Diet Snacks/Supplements Pediatric: Glucerna; Between Meals DVT Prophylaxis: Pneumatic Compression Devices Carr Catheter: Not present Central Lines: None Code Status: Full Code Disposition Plan Expected discharge: 04/24/2021 recommended to prior living arrangement once clared by primary team. The patient's care was discussed with the Patient. Yasir Altamirano, DO Hospitalist Service [facility] Securely message with the [employer] Console (learn more here) Text page via [employer] Paging/Directory Clinically Significant Risk Factors Present on Admission Interval History Very high blood sugars in the high 300s. States his blood sugars were low and she his lantus did decrease from 74 units to 60, then to 50, and then 40. Data reviewed today: I reviewed all medications, new labs and imaging results over the last 24 hours. I personally reviewed no images or EKG's today. Physical Exam Vital Signs: Temp: 98.1 ??F (36.7 ??C) Temp src: Oral BP: (!) 148/74 Pulse: 65 Resp: 16 SpO2: 95 % O2 Device: Nasal cannula Oxygen Delivery: 1 LPM Weight: 223 lbs 1.69 oz Constitutional: healthy, alert and no distress Head: Normocephalic. No masses, lesions, tenderness or abnormalities Neck: Neck supple. No adenopathy. Thyroid symmetric, normal size,, Carotids without bruits. ENT: ENT exam normal, no neck nodes or sinus tenderness Cardiovascular: negative, PMI normal. No lifts, heaves, or thrills. RRR. No murmurs, clicks gallops or rub Respiratory: negative, Percussion normal. Good diaphragmatic excursion. Lungs clear Gastrointestinal: Abdomen soft, non-tender. BS normal. No masses, organomegaly : Deferred Musculoskeletal: extremities normal- no gross deformities noted, gait normal and normal muscle tone Skin: no suspicious lesions or rashes Neurologic: CN II-XII are intact Psychiatric: mentation appears normal and affect normal/bright Hematologic/Lymphatic/Immunologic: Normal cervical lymph nodes ? Data Shavon Pisano PA-C - 04/22/2021 8:46 AM CDT Patient seen and care plan discussed with Dr. Gardner [facility] Cardiovascular and Thoracic Surgery Daily Note Assessment and Plan: POD#3 s/p Coronary artery bypass grafting x 3 with left internal mammary artery to the left anteriordescending, reverse saphenous vein graft to the posterior descending artery, reverse saphenous vein graft to the obtuse marginal 2 artery, endoscopic vein harvest from the left lower extremity, intraoperative KARIE??by Dr. Kushal Gardner -CVS: HR: 60s-80s. SBP: 130s-170s. Pre op EF; 55-60%. ASA, BB, statin. Amlodipine 10mg daily (MANAGED CARE ANALYST dose 7.5mg). Lisinopril 10mg resumed today (MANAGED CARE ANALYST dose 20mg in combination with hydroghlorothiazide 12.5mg). Chest tubes with too much output to remove today, will place to waterseal. Pacer wires capped. -Resp: Extubated within protocol. Saturating well on 1L. Wean as able. Continue to encourage IS, cough, deep breathing, ambulation. -Neuro: Grossly intact. Pain controlled. MANAGED CARE ANALYST zoloft resumed. -Renal: good UOP. Up about 3kg from preoperative weight. Hx of CKD with baseline Cr: 1.3-1.4. GENO onCKD resolving. Cr: 1.47<1.71<1.42<1.20. BUN 57. Will give 20mg IV lasix after blood and monitor response. -GI: Nausea resolved. Tolerating diet. No BM. Continue bowel regimen. -: Voiding well on own -Endo: pre op a1c: 6.6. Hx of DMII, insulin dependent. Completed insulin infusion per protocol. Hospitalist following for post operative glycemic management. -FEN: replace electrolytes as needed. Na: 141. K: 4.5 Orders Placed This Encounter Consistent Carb 60 grams CHO per Meal Diet -ID: Temp (24hrs), Av.6 ??F (37 ??C), Min:97.8 ??F (36.6 ??C), Max:99.9 ??F (37.7 ??C) WBC: 12.7. Completed perioperative abx. Leukocytosis likely related to stress from surgery -Heme: Hgb: 6.8 plt: 182. Acute blood loss anemia and thrombocytopenia related to surgery. Will give1u PRBC today and will give one dose lasix after. Will follow up Hgb this afternoon. -Proph: PCD, ASA, BB, statin, PPI, sub q heparin -Dispo: St. [facility]. Continue therapies. Continue chest tubes today. Continue to encourage IS, cough, deep breathing, ambulation. Interval History: No acute events overnight. Saturating well on 2L. Pain controlled. Tolerating diet. No BM. Medications: ??? acetaminophen 975 mg Oral Q8H ??? amLODIPine 10 mg Oral Daily ??? aspirin 162 mg Oral or NG Tube Daily ??? furosemide 20 mg Intravenous Once ??? gabapentin 600 mg Oral BID ??? heparin ANTICOAGULANT 5,000 Units Subcutaneous Q8H ??? insulin aspart Subcutaneous QAM AC ??? insulin aspart Subcutaneous Daily with lunch ??? insulin aspart Subcutaneous Daily with supper ??? insulin aspart 1-10 Units Subcutaneous TID AC ??? insulin aspart 1-7 Units Subcutaneous At Bedtime ??? insulin glargine 15 Units Subcutaneous Once ??? insulin glargine 40 Units Subcutaneous QAM AC ??? metoprolol tartrate 25 mg Oral BID ??? pantoprazole 40 mg Oral or NG Tube Daily Or ??? pantoprazole 40 mg Oral Daily ??? polyethylene glycol 17 g Oral Daily ??? rosuvastatin 40 mg Oral QPM ??? senna-docusate 1 tablet Oral BID ??? sertraline 50 mg Oral Daily ??? sodium chloride (PF) 3 mL Intracatheter Q8H acetaminophen, bisacodyl, glucose OR dextrose OR glucagon, hydrALAZINE, HYDROmorphone ORHYDROmorphone, lidocaine 4%, lidocaine (buffered or not buffered), magnesium hydroxide, methocarbamol, naloxone OR naloxone OR naloxone OR naloxone, ondansetron OR ondansetron, oxyCODONE, sodium chloride (PF) Physical Exam: Vitals were reviewed Blood pressure (!) 175/71, pulse 65, temperature 98.6 ??F (37 ??C), temperature source Oral, resp. rate 16, height 1.803 m (5' 11), weight 101.2 kg (223 lb 1.7 oz), SpO2 96 %. Rhythm: NSR Lungs: diminished bases Cardiovascular: RRR normal s1 and s2 Abdomen: soft NTND Extremeties: minimal edema Incision: CDI CT: to waterseal Weight: Vitals: 04/19/21 0604 04/20/21 0445 04/20/21 1300 04/21/21 0600 Weight: 98 kg (216 lb) 102.4 kg (225 lb 12 oz) 101.7 kg (224 lb 1.6 oz) 102.6 kg (226 lb 3.1 oz) 04/22/21 0646 Weight: 101.2 kg (223 lb 1.7 oz) Data: Labs: Lab Results Component Value Date WBC 12.7 04/22/2021 WBC 8.8 01/02/2021 Lab Results Component Value Date RBC 2.32 04/22/2021 RBC 3.93 01/02/2021 Lab Results Component Value Date HGB 6.8 04/22/2021 HGB 11.3 01/02/2021 Lab Results Component Value Date HCT 20.8 04/22/2021 HCT 34.5 01/02/2021 No components found for: MCT Lab Results Component Value Date MCV 90 04/22/2021 MCV 88 01/02/2021 Lab Results Component Value Date MCH 29.3 04/22/2021 MCH 28.8 01/02/2021 Lab Results Component Value Date MCHC 32.7 04/22/2021 MCHC 32.8 01/02/2021 Lab Results Component Value Date RDW 13.0 04/22/2021 RDW 12.9 01/02/2021 Lab Results Component Value Date PLT 182 04/22/2021 PLT 202 01/02/2021 Last Basic Metabolic Panel: Lab Results Component Value Date NA 141 04/22/2021 NA 142 01/02/2021 Lab Results Component Value Date POTASSIUM 4.5 04/22/2021 POTASSIUM 4.8 01/02/2021 Lab Results Component Value Date CHLORIDE 110 04/22/2021 CHLORIDE 112 01/02/2021 Lab Results Component Value Date RICHIE 8.1 04/22/2021 RICHIE 8.6 01/02/2021 Lab Results Component Value Date CO2 30 04/22/2021 CO2 26 01/02/2021 Lab Results Component Value Date BUN 57 04/22/2021 BUN 40 01/02/2021 Lab Results Component Value Date CR 1.47 04/22/2021 CR 1.56 01/02/2021 Lab Results Component Value Date GLC 326 04/22/2021 GLC 115 01/02/2021 Shavon Pisano PA-C CV Surgery Pager # [phone] Shavon Pisano PA-C - 04/21/2021 10:26 AM CDT Patient seen and care plan discussed with Dr. Richards. [facility] Cardiovascular and Thoracic Surgery Daily Note Assessment and Plan: POD#2 s/p Coronary artery bypass grafting x 3 with left internal mammary artery to the left anteriordescending, reverse saphenous vein graft to the posterior descending artery, reverse saphenous vein graft to the obtuse marginal 2 artery, endoscopic vein harvest from the left lower extremity, intraoperative KARIE by Dr. Kushal Gardner -CVS: HR: 60s-70s. SBP: 120s-150s. Pre op EF: 55-60%. ASA, BB with hold parameters-- will increase to 25mg BID today. Resume MANAGED CARE ANALYST amlodipine at 5mg today for HTN (MANAGED CARE ANALYST dose 7.5mg. MANAGED CARE ANALYST lisinopril-hydrochlorothiazide on hold d/t GENO. Pacer wires capped. Chest tubes with too much output to remove today. Chest tubes to suction -Resp: Extubated within protocol. Saturating well on 1L. Wean as able. Continue to encourage IS, cough, deep breathing, ambulation. -Neuro: Grossly intact. Pain controlled. MANAGED CARE ANALYST zoloft resumed -Renal: good UOP. Up about 4kg from preoperative weight. Hx of CKD with baseline Cr: 1.3-1.4. GENO onCKD. Cr: 1.71<1.42<1.20. BUN 42. Will continue to hold diuretics today. -GI: Nausea resolved. Tolerating diet. No BM. Continue bowel regimen -: Remove carr catheter today. -Endo: pre op a1c: 6.6. Hx of DMII, insulin dependent. Completed insulin infusion per protocol. Transition to sliding scale insulin. Hospitalist consulted for assistance with post operative glycemic management. -FEN: replace electrolytes as needed. Na: 140. K: 4.4. Orders Placed This Encounter Consistent Carb 60 grams CHO per Meal Diet -ID: Temp (24hrs), Av.3 ??F (36.8 ??C), Min:97.8 ??F (36.6 ??C), Max:98.8 ??F (37.1 ??C) WBC: 12.6<10.2. Completed perioperative abx. -Heme: Hgb: 7.0, plt: 158. Acute blood loss anemia and thrombocytopenia related to surgery. Will repeat hemoglobin at noon and consider blood transfusion if not improving -Proph: PCD, ASA, BB, statin, PPI, sub q heparin -Dispo: St. 33. Continue therapies. Remove carr today. Continue chest tubes today. Continue to encourage IS, cough, deep breathing, ambulation. Interval History: No acute events overnight. Saturating well on 1L. Pain controlled. Tolerating diet. No BM. +flatus Medications: ??? acetaminophen 975 mg Oral Q8H ??? aspirin 162 mg Oral or NG Tube Daily ??? gabapentin 600 mg Oral BID ??? heparin ANTICOAGULANT 5,000 Units Subcutaneous Q8H ??? insulin aspart 1-7 Units Subcutaneous TID AC ??? insulin aspart 1-5 Units Subcutaneous At Bedtime ??? [START ON 04/22/2021] insulin aspart Subcutaneous QAM AC ??? insulin aspart Subcutaneous Daily with lunch ??? insulin aspart Subcutaneous Daily with supper ??? insulin glargine 40 Units Subcutaneous QAM AC ??? metoprolol tartrate 12.5 mg Oral BID ??? pantoprazole 40 mg Oral or NG Tube Daily Or ??? pantoprazole 40 mg Oral Daily ??? polyethylene glycol 17 g Oral Daily ??? rosuvastatin 40 mg Oral QPM ??? senna-docusate 1 tablet Oral BID ??? sertraline 50 mg Oral Daily ??? sodium chloride (PF) 3 mL Intracatheter Q8H [START ON 04/22/2021] acetaminophen, bisacodyl, glucose OR dextrose OR glucagon, hydrALAZINE,HYDROmorphone OR HYDROmorphone, lidocaine 4%, lidocaine (buffered or not buffered), magnesium hydroxide, methocarbamol, naloxone OR naloxone OR naloxone OR naloxone, ondansetron OR o ndansetron, oxyCODONE, sodium chloride (PF) Physical Exam: Vitals were reviewed Blood pressure (!) 153/61, pulse 72, temperature 98.8 ??F (37.1 ??C), temperature source Oral, resp.rate 11, height 1.803 m (5' 11), weight 102.6 kg (226 lb 3.1 oz), SpO2 95 %. Rhythm: NSR Lungs: diminished bases Cardiovascular: RRR normal s1 and s2 Abdomen: soft NTND Extremeties: minimal edema Incision: CDI CT: to suction Weight: Vitals: 04/19/21 0604 04/20/21 0445 04/20/21 1300 04/21/21 0600 Weight: 98 kg (216 lb) 102.4 kg (225 lb 12 oz) 101.7 kg (224 lb 1.6 oz) 102.6 kg (226 lb 3.1 oz) Data: Labs: Lab Results Component Value Date WBC 12.6 04/21/2021 WBC 8.8 01/02/2021 Lab Results Component Value Date RBC 2.39 04/21/2021 RBC 3.93 01/02/2021 Lab Results Component Value Date HGB 7.0 04/21/2021 HGB 11.3 01/02/2021 Lab Results Component Value Date HCT 22.1 04/21/2021 HCT 34.5 01/02/2021 No components found for: MCT Lab Results Component Value Date MCV 93 04/21/2021 MCV 88 01/02/2021 Lab Results Component Value Date MCH 29.3 04/21/2021 MCH 28.8 01/02/2021 Lab Results Component Value Date MCHC 31.7 04/21/2021 MCHC 32.8 01/02/2021 Lab Results Component Value Date RDW 13.3 04/21/2021 RDW 12.9 01/02/2021 Lab Results Component Value Date PLT 158 04/21/2021 PLT 202 01/02/2021 Last Basic Metabolic Panel: Lab Results Component Value Date NA 140 04/21/2021 NA 142 01/02/2021 Lab Results Component Value Date POTASSIUM 4.4 04/21/2021 POTASSIUM 4.8 01/02/2021 Lab Results Component Value Date CHLORIDE 109 04/21/2021 CHLORIDE 112 01/02/2021 Lab Results Component Value Date RICHIE 7.8 04/21/2021 RICHIE 8.6 01/02/2021 Lab Results Component Value Date CO2 24 04/21/2021 CO2 26 01/02/2021 Lab Results Component Value Date BUN 42 04/21/2021 BUN 40 01/02/2021 Lab Results Component Value Date CR 1.71 04/21/2021 CR 1.56 01/02/2021 Lab Results Component Value Date GLC 205 04/21/2021 GLC 115 01/02/2021 CXR: 04/20/21 FINDINGS: Sternal wires and mediastinal clips. Right IJ central venous catheter. Mediastinal drain and left chest tube. No pneumothorax. The heart is at the upper limits normal in size. There is no pulmonary edema. Persistent left basilar infiltrate. The upper lungs are clear. ?? IMPRESSION: No pneumothorax. Shavon Pisano PA-C CV Surgery Pager # [phone] Mateo Tatum, OT - 04/20/2021 1:12 PM CDT 04/20/21 0900 Quick Adds Type of Visit Initial Occupational Therapy Evaluation Living Environment People in home spouse Current Living Arrangements house Home Accessibility stairs to enter home;stairs within home Number of Stairs, Main Entrance 1 Stair Railings, Main Entrance none Number of Stairs, Within Home, Primary greater than 10 stairs Stair Railings, Within Home, Primary railings safe and in good condition Transportation Anticipated family or friend will provide Living Environment Comments Rambler walkout, walk-in shower Self-Care Usual Activity Tolerance good Current Activity Tolerance fair Regular Exercise Other (see comments) Equipment Currently Used at Home none Activity/Exercise/Self-Care Comment Pt retired but does daily outdoor work on their [place] property. Baseline indep all ADL, IADL, mobility. Disability/Function Hearing Difficulty or Deaf no Wear Glasses or Blind yes Vision Management reading glasses only Concentrating, Remembering or Making Decisions Difficulty no Difficulty Communicating no Difficulty Eating/Swallowing no Walking or Climbing Stairs Difficulty no Dressing/Bathing Difficulty no Toileting issues no Doing Errands Independently Difficulty (such as shopping) no Fall history within last six months yes (due to neuropathy) Number of times patient has fallen within last six months 3 General Information Onset of Illness/Injury or Date of Surgery 04/18/[address] Black Patient/Family Therapy Goal Statement (OT) return home Additional Occupational Profile Info/Pertinent History of Current Problem 70yo male POD #1 CABG x 3 Existing Precautions/Restrictions fall;sternal Limitations/Impairments sensory Cognitive Status Examination Orientation Status orientation to person, place and time Affect/Mental Status (Cognitive) WFL Follows Commands WFL Visual Perception Visual Impairment/Limitations WNL;corrective lenses for reading Sensory Sensory Comments B neuropathy in feet - causes falls as times as loses all feeling Pain Assessment Patient Currently in Pain Yes, see Vital Sign flowsheet Coordination Upper Extremity Coordination No deficits were identified Bed Mobility Bed Mobility supine-sit Supine-Sit [place] (Bed Mobility) moderate assist (50% patient effort) Transfers Transfers sit-stand transfer;bed-chair transfer Transfer Skill: Bed to Chair/Chair to Bed Bed-Chair [place] (Transfers) minimum assist (75% patient effort) Sit-Stand Transfer Sit-Stand [place] (Transfers) minimum assist (75% patient effort) Balance Balance Comments Pt has baseline B neuropathy in feet from DM 1 and does have a R knee that acts up at times and prior to surgery sprained his L ankle. At eval in ICU, CGA static standing and bed to chair no LOB. Clinical Impression Criteria for Skilled Therapeutic Interventions Met (OT) yes OT Diagnosis decreased ADL/IADL performance OT Problem List-Impairments impacting ADL problems related to;activity tolerance impaired;balance;strength;post-surgical precautions;pain Assessment of Occupational Performance 3-5 Performance Deficits Identified Performance Deficits functional mob, household mgmt, community mobility, exercise tolerance Planned Therapy Interventions (OT) ADL retraining;IADL retraining;bed mobility training;transfer training;home program guidelines;progressive activity/exercise;other (see comments) Clinical Decision Making Complexity (OT) low complexity Therapy Frequency (OT) 2x/day Predicted Duration of Therapy 5 days Risk & Benefits of therapy have been explained evaluation/treatment results reviewed;care plan/treatment goals reviewed;risks/benefits reviewed;current/potential barriers reviewed;participants voiced agreement with care plan;participants included;patient;spouse/significant other OT Discharge Planning OT Discharge Recommendation (DC Rec) Home with assist;home with outpatient cardiac rehab OT Rationale for DC Rec Pt will benefit from progressive monitored exercise OPCR program and family A with heavier household tasks upon discharge. Total Evaluation Time (Minutes) Total Evaluation Time (Minutes) 15 James Evans RN - 04/20/2021 1:05 PM CDT SBAR given to the floor RN, pt transferred via wheelchair, all belongings sent with pt. insulin dripinfusing. Shavon Pisano PA-C - 04/20/2021 9:04 AM CDT Patient seen and care plan [facility] Daily Note Assessment and Plan: POD#1 s/p Coronary artery bypass grafting x 3 with left internal mammary artery to the left anteriordescending, reverse saphenous vein graft to the posterior descending artery, reverse saphenous vein graft to the obtuse marginal 2 artery, endoscopic vein harvest from the left lower extremity, intraoperative KARIE by Dr. Kushal Gardner -CVS: HR: 70s-80s. SBP: 110s-140s. Pre op EF: 55-60%. Weaned off pressors. Pacer wires capped. ASA, BB with hold parameters, statin. MANAGED CARE ANALYST amlodipine, lisinopril- hydrochlorothiazide on hold. Chest tubesto suction. -Resp: Extubated within protocol. Saturating well on 2L. Continue to encourage IS, cough, deep breathing, ambulation. -Neuro: Grossly intact. Pain controlled. -Renal: good UO, up about 4kg from preoperative weight. Hx of CKD with baseline Cr around 1.3-1.4. Will hold diuretics today. Creatinine Date Value Ref Range Status 04/20/2021 1.42 (H) 0.66 - 1.25 mg/dL Final 01/02/2021 1.56 (H) 0.66 - 1.25 mg/dL Final ] -GI: nausea and emesis overnight. Tolerating diet. No BM. Continue bowel regimen -: Carr in place d/t limited mobility and need for accurate I&Os. -Endo: Continue Insulin gtt 48hrs, Consult placed to Hospitalist for glucose management -FEN: replete lytes as needed, Na: 142. K: 4.5 Orders Placed This Encounter Consistent Carb 60 grams CHO per Meal Diet -ID: Temp (24hrs), Av.4 ??F (36.3 ??C), Min:96.7 ??F (35.9 ??C), Max:98 ??F (36.7 ??C) Completing perioperative abx. WBC Date Value Ref Range Status 01/02/2021 8.8 4.0 - 11.0 10e9/L Final WBC Count Date Value Ref Range Status 04/20/2021 10.2 4.0 - 11.0 10e3/uL Final ] -Heme: Hemoglobin Date Value Ref Range Status 04/20/2021 7.2 (L) 13.3 - 17.7 g/dL Final 01/02/2021 11.3 (L) 13.3 - 17.7 g/dL Final ], -Proph: PCD, ASA, BB, statin, PPI, sub q heparin -Dispo: Transfer to [facility]. Initiate therapies. Continue chest tubes and carr today. Continue to encourage IS, cough, deep breathing, ambulation. Interval History: Extubated and weaned from pressors. Saturating well on 4L. Pain controlled. Nausea and vomiting overnight. No BM. Medications: ??? acetaminophen 975 mg Oral Q8H ??? aspirin 162 mg Oral or NG Tube Daily ??? ceFAZolin 2 g Intravenous Q8H ??? gabapentin 600 mg Oral BID ??? heparin ANTICOAGULANT 5,000 Units Subcutaneous Q8H ??? metoprolol tartrate 12.5 mg Oral BID ??? pantoprazole 40 mg Oral or NG Tube Daily Or ??? pantoprazole 40 mg Oral Daily ??? polyethylene glycol 17 g Oral Daily ??? rosuvastatin 40 mg Oral QPM ??? senna-docusate 1 tablet Oral BID ??? sodium chloride (PF) 3 mL Intracatheter Q8H [START ON 04/22/2021] acetaminophen, bisacodyl, glucose OR dextrose OR glucagon, hydrALAZINE,HYDROmorphone OR HYDROmorphone, lidocaine 4%, lidocaine (buffered or not buffered), magnesium hydroxide, methocarbamol, naloxone OR naloxone OR naloxone OR naloxone, ondansetron OR o ndansetron, oxyCODONE, phenylephrine, BETA JERROD NOT PRESCRIBED, sodium chloride (PF) Physical Exam: Vitals were reviewed Blood pressure 132/54, pulse 67, temperature 98 ??F (36.7 ??C), temperature source Oral, resp. rate 14, height 1.803 m (5' 11), weight 102.4 kg (225 lb 12 oz), SpO2 100 %. Rhythm: NSR Lungs: diminished bases Cardiovascular: RRR normal s1 and s2 Abdomen: soft NTND Extremeties: minimal edema Incision: CDI CT: to suction Weight: Vitals: 04/19/21 0604 04/20/21 0445 Weight: 98 kg (216 lb) 102.4 kg (225 lb 12 oz) Data: Labs: Lab Results Component Value Date WBC 10.2 04/20/2021 WBC 8.8 01/02/2021 Lab Results Component Value Date RBC 2.47 04/20/2021 RBC 3.93 01/02/2021 Lab Results Component Value Date HGB 7.2 04/20/2021 HGB 11.3 01/02/2021 Lab Results Component Value Date HCT 22.3 04/20/2021 HCT 34.5 01/02/2021 No components found for: MCT Lab Results Component Value Date MCV 90 04/20/2021 MCV 88 01/02/2021 Lab Results Component Value Date MCH 29.1 04/20/2021 MCH 28.8 01/02/2021 Lab Results Component Value Date MCHC 32.3 04/20/2021 MCHC 32.8 01/02/2021 Lab Results Component Value Date RDW 12.8 04/20/2021 RDW 12.9 01/02/2021 Lab Results Component Value Date PLT 121 04/20/2021 PLT 202 01/02/2021 Last Basic Metabolic Panel: Lab Results Component Value Date NA 142 04/20/2021 NA 142 01/02/2021 Lab Results Component Value Date POTASSIUM 4.5 04/20/2021 POTASSIUM 4.8 01/02/2021 Lab Results Component Value Date CHLORIDE 112 04/20/2021 CHLORIDE 112 01/02/2021 Lab Results Component Value Date RICHIE 7.3 04/20/2021 RICHIE 8.6 01/02/2021 Lab Results Component Value Date CO2 26 04/20/2021 CO2 26 01/02/2021 Lab Results Component Value Date BUN 33 04/20/2021 BUN 40 01/02/2021 Lab Results Component Value Date CR 1.42 04/20/2021 CR 1.56 01/02/2021 Lab Results Component Value Date GLC 132 04/20/2021 GLC 131 04/20/2021 GLC 115 01/02/2021 CXR: 04/20/21 FINDINGS: Sternal wires and mediastinal clips. Right IJ central venous catheter. Mediastinal drain and left chest tube. No pneumothorax. The heart is at the upper limits normal in size. There is no pulmonary edema. Persistent left basilar infiltrate. The upper lungs are clear. ?? IMPRESSION: No pneumothorax. Shavon Pisano PA-C CV Surgery Pager #[phone] Deanna Barnes CNP - 04/20/2021 8:40 AM CDT Ceci Lind is a 70 year old male who was admitted on 04/19/2021 for planned CAB. Now extubated per pathway, on NC, hemodynamically normal without vasoactive agent support, awake and comfortable. Hischemistries are balanced and creatinine at baseline. The ICU service will sign off. Don't hesitate to contact us if we can be of assistance Deanna Barnes Maria E Higgins RN - 04/19/2021 6:30 PM CDT Admitted to ICU from OR 1334 and extubated to 4L NC at 1738. Off pressors at this time with MAP goal>65 and SBP<140 - see OCT. Chest tubes patent. at bedside and updated on plan of care. Tiffany Hernandez RT - 04/19/2021 5:42 PM CDT Extubation Note Successful completion of SBT (Yes or No):yes Extubation time:1738 Patient assessment: Lung sounds:Clear/diminished Stridor Present (Yes or No): no Patient tolerance: good Oxygen device: Liter flow:4 SpO2:97% Plan:Patient completed successful SBT and extubated to 4 lpm NC. BS clear/diminished, no stridor present. RT to follow as needed. RT Parris 5:43 PM 04/19/21 Konstantin Meeks - 04/18/2021 9:52 AM CDT MANAGED CARE ANALYST medications updated by Medication Scribe prior to surgery via phone call with patient??(last doses completed by Nurse) Medication history sources: Patient, Surescripts and H&P In the past week, patient estimated taking medication this percent of the time: Greater than 90% Adherence assessment: N/A Not Observed Significant changes made to the medication list: Patient reports no longer taking the following meds (med scribe removed from MANAGED CARE ANALYST med list): Trazodone, Clonidine Additional medication history information: Patient brought own home meds: Blink Tears Eye Drops Medication reconciliation completed by provider prior to medication history? No Time spent in this activity: 25 minutes The information provided in this note is only as accurate as the sources available at the time of update(s) Prior to Admission medications Medication Sig Last Dose Taking? Auth Provider amLODIPine (NORVASC) 2.5 MG tablet Take 1 tablet (2.5 mg) by mouth daily Take 1 tablet (2.5mg) in addition to 1 tablet Amlodipine 5mg for a total dose of 7.5mg 04/18/2021 at PM Yes Fidencio Solis MD amLODIPine (NORVASC) 5 MG tablet Take 1 tablet (5 mg) by mouth daily Take 1 tablet (5mg) in additionto 1 tablet 2.5mg to total 7.5mg 04/18/2021 at PM Yes Fidencio Solis MD aspirin (ASPIRIN) 81 MG EC tablet Take 81 mg by mouth daily at AM Yes Reported, Patient calcium-magnesium (CALMAG) 500-250 MG TABS per tablet Take 1 tablet by mouth every evening 04/18/2021 at PM Yes Reported, Patient carvedilol (COREG) 6.25 MG tablet Take 1 tablet (6.25 mg) by mouth 2 times daily (with meals) at AM Yes Fidencio Solis MD Copper Gluconate 2 MG CAPS Take 1 capsule by mouth daily 04/18/2021 at AM Yes Reported, Patient cyanocobalamin (VITAMIN B-12) 1000 MCG tablet Take 1,000 mcg by mouth daily 04/18/2021 at AM Yes Reported, Patient Ferrous Sulfate (IRON PO) Take 50 mg by mouth daily 04/18/2021 at AM Yes Reported, Patient gabapentin (NEURONTIN) 300 MG capsule Take 600 mg by mouth 2 times daily (2 X 300 mg) 04/18/2021 at PMYes Reported, Patient glucosamine-chondroitin 500-400 MG CAPS per capsule Take 1 capsule by mouth daily 04/18/2021 at AM YesReported, Patient HEMP OIL OR EXTRACT OR OTHER CBD CANNABINOID, NOT MEDICAL CANNABIS, Apply topically daily as needed at PRN Yes Reported, Patient insulin glargine (LANTUS VIAL) 100 UNIT/ML vial Inject 45 Units Subcutaneous At Bedtime 04/18/2021 at PM Yes Reported, Patient Insulin Lispro (HUMALOG SC) Inject Subcutaneous 4 times daily (before meals and nightly) Sliding scale + carb coverage Yes Reported, Patient lisinopril-hydrochlorothiazide (ZESTORETIC) 20-12.5 MG tablet Take 1 tablet by mouth daily 04/18/2021 at PM Yes Fidencio Solis MD melatonin 3 MG CAPS Take 3 mg by mouth At Bedtime 04/18/2021 at PM Yes Reported, Patient nitroGLYcerin (NITROSTAT) 0.[address] 1 tablet (0.4 mg) under the tongue every 5 minutes as needed for chest pain (If pain is not relieved 5 minutes after 1st dose call 911) at PRN Yes Fidencio Solis MD Polyethylene Glycol 400 (BLINK TEARS OP) Place 1 drop into both eyes daily as needed 04/18/2021 at PRNYes Reported, Patient rosuvastatin (CRESTOR) 40 MG tablet Take 1 tablet (40 mg) by mouth every evening 04/18/2021 at PM Yes Fidencio Solis MD sertraline (ZOLOFT) 50 MG tablet Take 50 mg by mouth daily 04/18/2021 at AM Yes Reported, Patient Turmeric 500 MG CAPS Take 1 capsule by mouth every morning 04/18/2021 at AM Yes Reported, Patient Continuous Blood Gluc Sensor (DEXCOM G6 SENSOR) MISC Unknown, Entered By History ONE TOUCH ULTRA TEST STRP as directed Roberto Linder MD SYRINGE B-D MICRO FINE 1/2 CC SYRINGES as directed Roberto Linder MD Medication history completed by: Gurmeet Meeks CPhT [facility]ication [facility] documented in this encounter Consult Notes Ruby Garner, RD, LD - 04/21/2021 12:40 PM CDT NUTRITION ASSESSMENT REASON FOR ASSESSMENT: Cardiac Surgery Nutrition Consult CURRENT DIET / INTAKE: 60 g CHO per meal Patient ordering very small meals, decreased appetite. Breakfast today was an omelet and coffee and dinner last night consisted of chicken noodle soup. ANTHROPOMETRICS: Ht: 5'11 Wt: 98 kg (04/19) BMI: 30.1 kg/m^2 IBW: 78.2 kg Weight Status: Obesity Grade I BMI 30-34.9 %IBW: 125% MALNUTRITION: Patient does not meet two of the following criteria necessary for diagnosing malnutrition: significant weight loss, reduced intake, subcutaneous fat loss, muscle loss or fluid retention. Nutrition Focused Physical Assessment (NFPA) not appropriate at this time. NUTRITION DIAGNOSIS: Increased nutrient needs (protein) R/t recent open heart surgery AEB need for oral nutritional supplements post-op INTERVENTIONS: Nutrition Prescription: 60 grams Consistent CHO per meal Glucerna BID between meals Implementation: Ordered as above Goals: Patient to consume ~75% at meals in the next 3 - 5 days Follow Up/Monitoring (InPatient): Food and Fluid intake - Monitor for adequacy Follow Up/Monitoring (OutPatient): Patient will participate in out-patient cardiac rehab and attend nutrition classes during the program Ruby Garner RD, ANJEL, [facility] Clinical Dietitian - [facility] Yasir Altamirano, - 04/21/2021 8:57 AM CDTAssociated Order(s): HOSPITALIST IP CONSULT [facility] Consult Note - Hospitalist Service Date of Admission: 04/19/2021 Consult Requested by: Ms. Norris STILES Reason for Consult: diabetic management Assessment & Plan Ceci Lind is a 70 year old male admitted on 04/19/2021. He underwent CABG x3 with lift IM to theLAD, [id number] saphenous vein graft to the PDA, reverse saphenous to the 2 obtuse marginal artery. Hospitalist consulted for postoperative diabetic management Insulin requiring Diabetes Mellitus Home regimen: 45 units of lantus and sliding scale. Often uses 20 units per meal based on blood sugar A1c of 6.6 on current regimen Managed to insulin infusion x 48 hours after CABG Currently eating a full diet of moderate carb, 100% of meals Plan - resume lantus at 40 units of lantus daily - sliding scale insulin with diabetic diet - 1:15 g carb aspart Update: paged for worsening hyperglycemia. Ensured carb controlled diet, additional 8 units of aspart now, increase to high dose sliding scale and increase his carb counting to 1:10, ensure no D5 solution running Status post 3v cabg on 04/19 Plan - defer management to [facility] History of iron deficiency Received ferraheme infusions as outpatient in February through his log snaker in [facility] Plan - obtain iron labs, and consider venofer gtt while in patient - defer blood transfusion to primary team Chronic medical conditions CAD HTN HLD CKD III, with baseline creatinine of 1.4 The patient's care was discussed with the Patient. Yasir Altamirano [facility] Securely message with the [employer] Console (learn more here) Text page via [employer] Paging/Directory Clinically Significant Risk Factors Present on Admission Chief Complaint DM 2 management History is obtained from the patient History of Present Illness Ceci Lind is a 70 year old male who with pmh of CAD, DM2, AILEEN, CKD III, HTN and HLD who was admitted for elective 3v CABG on 04/19. His postoperative course has been unremarkable. Today, the cardiothoracic surgery team has consulted the hospitalists for DM2 management He reports he is compliant with his insulin regimen and recently decreased his lantus from 74 units to 45 units daily. He has not lost weight, but notes he has been eating healthier. Minimal pain. Review of Systems The 10 point Review of Systems is negative other than noted in the HPI or here. Past Medical History I have reviewed this [...] PCI to Ostial LCX with JAVIER ??? CORONARY ANGIOGRAPHY ADULT ORDER 07/2013 RCA 40-50% stenosis, prox PDA 60%, left circ 50-60%. Mod. nonobstructive CAD ??? CV CORONARY ANGIOGRAM N/A 03/13/2021 Procedure: Coronary Angiogram; Surgeon: Darwin Valero MD; Location: [facility] ??? CV INSTANTANEOUS WAVE-FREE RATIO N/A 03/13/2021 Procedure: Instantaneous Wave-Free Ratio; Surgeon: Darwin Valero MD; Location: [facility] ??? HC LEFT HEART CATHETERIZATION 04/01/2016 mild [...] updated it with pertinent information if needed. Social History Tobacco Use ??? Smoking status: Former Smoker Years: 2.00 Types: Cigarettes Quit date: 04/19/1972 Years since quittin.0 ??? Smokeless tobacco: Never Used Substance Use Topics ??? Alcohol use: Yes Alcohol/week: 0.0 standard drinks Comment: beer and wine , 2 most days ??? Drug use: No Family History I have reviewed this patient's family history and updated it with pertinent information if needed. Family History Problem Relation Age of Onset ??? Hypertension Mother ??? Diabetes Maternal Grandmother ??? Hypertension Maternal Grandmother ??? Hypertension Maternal Grandfather Medications I have reviewed this patient's current medications Allergies Allergies Allergen Reactions ??? Atorvastatin Other (See Comments) Congestion ??? Epinephrine Palpitations Physical Exam Vital Signs: Temp: 98.8 ??F (37.1 ??C) Temp src: Oral BP: (!) 153/61 Pulse: 72 Resp: 11 SpO2: 95 % O2 Device: Nasal cannula Oxygen Delivery: 1 LPM Weight: 226 lbs 3.07 oz Exam: Constitutional: healthy, alert and no distress Head: Normocephalic. No masses, lesions, tenderness or abnormalities Neck: Neck supple. No adenopathy. Thyroid symmetric, normal size,, Carotids without bruits. ENT: ENT exam normal, no neck nodes or sinus tenderness Cardiovascular: negative, PMI normal. No lifts, heaves, or thrills. RRR. No murmurs, clicks gallops or rub Respiratory: negative, Percussion normal. Good diaphragmatic excursion. Lungs clear Gastrointestinal: Abdomen soft, non-tender. BS normal. No masses, organomegaly : Deferred Musculoskeletal: extremities normal- no gross deformities noted, gait normal and normal muscle tone Skin: no suspicious lesions or rashes Neurologic: CN II-XII are intact Psychiatric: mentation appears normal and affect normal/bright Hematologic/Lymphatic/Immunologic: Normal cervical lymph nodes Data I personally reviewed no images or EKG's today. Lakeisha Castro MD - 04/19/2021 4:44 PM CDTAssociated Order(s): SHAREMILKER IP CONSULT [facility] Critical Care Service Progress Note Date of Service (when I saw the patient): 04/19/2021 Main Plans for Today Ventilation management, extubation when hemodynamically stable. Assessment & Plan Ceci Lind is a 70 year old male who was admitted on 04/19/2021 for planned CAB Neuro 1. Encephalopathy, drug induced 2. Acute pain 3. Sedation Plan: -- Scheduled acetaminophen, -- Propofol for sedation as needed until extubation -- Delirium prevention as able CV 1. S/p CAB x 3 2. HTN Plan: -- Per pathway -- Cardiac meds per CV surgery Resp: 1. Post operative ventilator management 2. Acute respiratory failure Plan: -- Current settings are: Ventilation Mode: CPAP/PS (Continuous positive airway pressure with Pressure Support) FiO2 (%): 40 % Rate Set (breaths/minute): 16 breaths/min Tidal Volume Set (mL): 500 mL PEEP (cm H2O): 5 cmH2O Pressure Support (cm H2O): 5 cmH2O Oxygen Concentration (%): 30 % Resp: 16 -- PST when hemodynamically stable GI/Nutrition 1. No prior hx Plan: -- NPO -- PPI Renal 1. CKD Baseline creatinine appears to be 1.2 - 1.4 Plan: --monitor function and electrolytes as needed with replacement per ICU protocols. - generally avoid nephrotoxic agents such as NSAID, IV contrast unless specifically required -- adjust medications as needed for renal clearance -- follow I/O's as appropriate. -- maintain euvolemia ID 1. No prior hx Plan: Cefazolin ppx Endocrine 1. DM type 2 2. Stress Hyperglycemia Plan: -- Insulin gtt per protocol if indicated -- Keep BG <180 for optimal healing Heme: 1. Acute blood loss anemia 2. Coagulopathy Plan: -- Monitor hemoglobin. -- Transfuse to keep > 7.0 General cares: DVT Prophylaxis: Heparin SQ and Pneumatic Compression Devices GI Prophylaxis: PPI Restraints: Restraints for medical healing needed: YES Family update by me today: Yes Current lines are required for patient management Access: Lakeisha Castro Time Spent on this Encounter Billing: I spent 30 minutes bedside and on the inpatient unit today managing the critical care of Ceci Lind in relation to the issues listed in this note. Interval History Post CAB x 3 Physical Exam Temp: (!) 96.7 ??F (35.9 ??C) Temp src: Axillary Temp Min: 96.7 ??F (35.9 ??C) Max: 98.2 ??F (36.8 ??C) BP: (!) 173/73 Pulse: 80 Resp: 16 SpO2: 100 % O2 Device: Mechanical Ventilator Vitals: 04/19/21 0604 Weight: 98 kg (216 lb) I/O last 3 completed shifts: In: 3582 [I.V.:2550; Other:532] Out: 1266 [Urine:660; Blood:500; Chest Tube:106] GEN: sedated EYES: PERRL, Anicteric sclera. HEENT: Normocephalic, atraumatic, trachea midline, ETT secure CV: RRR, no gallops, rubs, or murmurs PULM/CHEST: Clear breath sounds bilaterally without rhonchi, crackles or wheeze, symmetric chest rise GI: normal bowel sounds, soft, non-tender, no rebound tenderness or guarding, no masses : carr catheter in place, urine yellow and clear EXTREMITIES: no peripheral edema, moving all extremities, peripheral pulses intact NEURO: Cranial nerves II-XII grossly intact, no motor-sensory deficits noted SKIN: No rashes, sores or ulcerations Imaging personally reviewed: ECG Chest XR Data Recent Labs Lab 04/19/21 1620 04/19/21 1505 04/19/21 1413 04/19/21 1407 04/19/21 1406 04/19/21 1216 04/19/21 0608 04/17/21 1153 04/17/21 1153 WBC -- -- -- 14.1* -- 14.9* -- -- 10.5 HGB -- -- -- 7.8* -- 7.0* 10.5* -- 11.1* MCV -- -- -- 90 -- 89 -- -- 88 PLT -- -- -- 136* -- 112* -- -- 174 INR -- -- -- -- 1.31* 1.56* -- -- 1.07 NA -- -- -- 145* -- 144 -- -- 136 POTASSIUM -- -- -- 4.4 4.4 -- 4.6 4.6 -- 5.0 CHLORIDE -- -- -- 115* -- 113* -- -- 108 CO2 -- -- -- 25 -- 25 -- -- 28 BUN -- -- -- 33* -- 33* -- -- 49* CR -- -- -- 1.20 -- 1.21 1.34* -- 1.37* ANIONGAP -- -- -- 5 -- 6 -- -- <1* RICHIE -- -- -- 7.5* -- 7.8* -- -- 9.0 GLC 166* 152* 168* 155* -- 183* 193* < > 319* ALBUMIN -- -- -- 2.4* -- -- -- -- 3.5 PROTTOTAL -- -- -- 4.7* -- -- -- -- 7.1 BILITOTAL -- -- -- 0.5 -- -- -- -- 0.5 ALKPHOS -- -- -- 31* -- -- -- -- 51 ALT -- -- -- 18 -- -- -- -- 25 AST -- -- -- 33 -- -- -- -- 15 < > = values in this interval not displayed. Associated attestation - Neftaly Lord MD - 04/19/2021 9:49 PM CDT ATTENDING PHYSICIAN: I reviewed the patient's history, obtained additional history, conducted an examination to confirm arvizu findings and reviewed the studies and labs. Discussed the case with the ICU team and agree with the findings and plan as outlined in their note as written below. I personally spent 35 minutes of critical care time reviewing labs and imaging, examining the patient, and managing the ventilator. This does not include time spent on procedures or teaching. Ceci is critically ill based on: dependence on ventilator postoperatively following coronary artery bypass grafting today. Neftaly Lord MD Pager [phone], ANJEL - 04/19/2021 2:20 PM CDTAssociated Order(s): NUTRITION SERVICES ADULT IP CONSULT CARDIAC SURGERY NUTRITION CONSULT Received standing order to assess and educate patient. Will follow and complete assessment once patient is extubated and/or is transferred to medical unit. Patient will receive nutrition education during the Outpatient Cardiac Rehab Program (nutrition classes/dietitian counseling). documented in this encounter Miscellaneous Notes Plan of Care - Enriqueta Tilley - 04/25/2021 1:37 PM CDT A&O x 4. Mild hypertension, otherwise VSS on room air. Tele: SR. independent. Mod carb diet, tolerating well, bg monitoring. PIV removed for discharge. Sternal and LLE incisions WDL, incision care discussed. Denies pain, nausea, SOB. Voiding spontaneously. BS active, +flatus. Adequate for discharge. Discharge instructions reviewed with patient and spouse. All questions answered. Belongings returnedat discharge. Prescription medications given to and reviewed with patient, pt refused oxycodone but was sent with paper script just in case. Patient discharged home via car with spouse. Plan of Care - Carly Day OT - 04/25/2021 1:37 PM CDT Cardiac Rehab Discharge Summary Reason for therapy discharge: Discharged to home with outpatient therapy. Progress towards therapy goal(s). See goals on Care Plan in [facility] electronic health record for goal details. Goals met Therapy recommendation(s): Continued therapy is recommended. Rationale/Recommendations: OP CR for further cardiac monitoring and education. Plan of Care - Chelo Mendieta RN - 04/25/2021 6:29 AM CDT 1900h-0700h: Patient AOx4. O2Sat 93% on RA. Clear bilateral breath sound in upper lobes & diminished in lower. Denies chest pain/SOB. Tolerating Mod CHO. Denies n/v. Voding adequately to urinal. Normoactive BS x4. Assist of 1 w/ FWW. Sternum incision closed w/ liquid bandage. Incision w/ liq bandage, DUDE RANCH MANAGER on L groin. L knee & L ankle. Trace edema, palpable pulses, w/ baseline numbness & tingling, denies pain on BLE. Shower done tonight. Tele: Sinus bradycardia @ 52 bpm; asymptomatic. 2300h: 147/68 mmHg; IV hydralazine 10 mg PRN given. Denies chest pain. 0019h: 115/54mmHg. 0511h: 144/69; hydralazine 10 mg given. 0625h: 129/58 mmHg Plan for discharge today. Plan of Care - Maye Ramirez RN - 04/24/2021 2:59 PM CDT POD5. A/Ox4. RA. Bradycardic. BP higher when walking, had a 4 vtach run during noon walk. Saw rehab today. Xray this AM. Ate all of his breakfast, skips lunch, does a early dinner. In chair most of theday, bed for nap before rehab work. Incisions closed with liquid bandage: sternal, left groin, left knee, left ankle, CDI, no drainage. Pulses +. BM+. BS+ Gas+ urinating ok. Heparin subQ. Some trace edema in his feet. K 4.2. Mg 2.9. Ph 2.2 (replaced). BG [phone]. IND, walking in the halls with thenurses and rehab. CHO diet. Saline locked. Discharge tomorrow. came in today and they went overthe heart videos together. Plan of Care - Annie Renae RN - 04/24/2021 7:01 AM CDT A/Ox4. VSS ex. HR up to 160s with activity/walking. MD aware. HR otherwise to 50s-70s. Hydralazine given x1 for SBP>140. Tele SB. T max 99.4 oral. CMS ex intermittent numbness to BLE feet at baseline. Mid sternal incision site and Ankle/Knee/Groin harvest sites with Liquid bandaid, HEIDY, +1 weak pedal pulses. Chest tube site dressing CDI. Ambulating IND. Voiding in BR, adequate UOP. IV SL. Tylenol given for Restless leg syndrome pain. Melatonin given x1, pt reports this also helps his RLS. Mod carb diet, bedtime BG 306, 302 and 237. Lytes rechecks pending. Discharge pending. Provider Notification - Annie Renae RN - 04/23/2021 11:32 PM CDT Hospitalist paged: Pt requesting 600mg Gabapentin for Restless Leg. MANAGED CARE ANALYST meds show home admin BID at 2030 and Bedtime, but meds spilt day/nite here. Pt also requesting Melatonin for sleep. Thanks! Update: Melatonin ordered. Gabapentin to resume MANAGED CARE ANALYST admin tomorrow, per Hopsitalist note. I adjustedtimes in MAR for 2030 and 2330 per pt report of bedtime. See Hospitlaist note. Plan of Care - Maye Ramirez RN - 04/23/2021 3:59 PM CDT POD#4 CABG x3 and left leg harvest. A/Ox4. HTN; scheduled and PRN meds given, does get into the 160's when he is up walking. RA, denies SOB. Up walking with rehab today and nursing x4. BM today. Passing gas. Faint BS. Urinating ok. Chest tubes and pacer wires removed today. Midsternal chest incision closed with liquid bandage and open to air. Incisions along left leg closed with liquid bandage and open to air. Insulin gtt stopped on prior shift and discontinued on day shift: before meals subcutaneous insulin and 1:5 carb count coverage. Pt ate breakfast, skipped lunch, and eating a later dinner. K 4.2. Mg 2.9. Ph 2.7. WBC 13.9. Hbg 8.7. BG 135/302/365 (for the 365 gave his predinner insulin of 10 u nits, gave 5 units carb coverage, await recheck if >350 lamin MAHER). Pharmacy-Admission Medication History - Elizabeth Jane - 04/23/2021 9:34 AM CDT Pharmacy Medication History Admission medication history interview status for the 04/19/2021 admission is complete. See [facility] admission navigator for prior to admission medications Location of Interview: Patient room Medication history sources: Patient, Surescripts, Patient's home med list and Care Everywhere Significant changes made to the medication list: Of note, pharmacy interviewed patient on 04/23 at request of hospitalist to focus particularly on insulin regimens (MANAGED CARE ANALYST med list previously completed by medication scribe before surgery) Changed CALMAG to CALM supplement, deleted glucosamine, changed iron to slow release In the past week, patient estimated taking medication this percent of the time: greater than 90% Additional medication history information: Patient follows with the pecan cleaner Dr. Felder (previously Dr. More who has since retired) and a bottom buffer through [facility] for diabetes. Of note, patient typically wears a Dexcom with good adherence. Insulin glargine: Patient was previously injecting 74 [...] units the night prior to nakita camilo). He has noticed an increase in blood sugars with this lower dose of Lantus and would benefit from another visit with endocrinology upon discharge. Insulin lispro: Endocrinology has also been titrating his mealtime insulin doses. He is currently atan insulin: carb ratio of 1:5 and also has a sliding scale correction factor. Patient has an old Sheri glucose meter that calculates each mealtime insulin dose for him, taking into account both the sliding scale and the carb ratio. He typically is injecting 30 units (12 units from the carb ratio + 18 units from sliding scale) at breakfast and lunch and a varying amount at dinner (typically >30 units total). Sertraline: On 04/04, sleep specialist recommended taking sertraline at bedtime to help with sleep. Patient did not realize this recommendation was made and has continued to take it in the morning. Gabapentin: Patient was previously using 100mg tablets 2-3 times daily for neuropathy. On 04/04 at his sleep consult, the dose was increased first to to 300mg BID (at 8:30pm and hs) for 3-5 days and then to 60mg BID (at 8:30pm and hs). Patient unsure if this higher dose is benefiting his sleep. Melatonin: patient took a break from this medication, but resumed again 3-4 weeks ago. Reports that it seems to help but he still wakes up shortly after he goes to sleep. Also of note, at the sleep consult, trazodone and clonidine were discontinued. Medication reconciliation completed by provider prior to medication history? Yes Time spent in this activity: 1 hour Prior to Admission medications Medication Sig Last Dose Taking? Auth Provider amLODIPine (NORVASC) 2.5 MG tablet Take 1 tablet (2.5 mg) by mouth daily Take 1 tablet (2.5mg) in addition to 1 tablet Amlodipine 5mg for a total dose of 7.5mg 04/18/2021 at PM Yes Fidencio Solis MD amLODIPine (NORVASC) 5 MG tablet Take 1 tablet (5 mg) by mouth daily Take 1 tablet (5mg) in additionto 1 tablet 2.5mg to total 7.5mg 04/18/2021 at PM Yes Fidencio Solis MD aspirin (ASPIRIN) 81 MG EC tablet Take 81 mg by mouth daily 04/19/2021 at AM Yes Reported, Patient carvedilol (COREG) 6.25 MG tablet Take 1 tablet (6.25 mg) by mouth 2 times daily (with meals) 04/19/2021 at AM Yes Fidencio Solis MD Copper Gluconate 2 MG CAPS Take 1 capsule by mouth daily 04/18/2021 at AM Yes Reported, Patient cyanocobalamin (VITAMIN B-12) 1000 MCG tablet Take 1,000 mcg by mouth daily 04/18/2021 at AM Yes Reported, Patient Ferrous Sulfate 50 MG TBCR Take 50 mg by mouth daily 04/18/2021 at am Yes Unknown, Entered By History gabapentin (NEURONTIN) 300 MG capsule Take 600 mg by mouth 2 times daily (2 X 300 mg) at 8:30pm and bedtime. 04/18/2021 at PM Yes Reported, Patient HEMP OIL OR EXTRACT OR OTHER CBD CANNABINOID, NOT MEDICAL CANNABIS, Apply 1 Application topically 2 times daily as needed (Arthritis on right knee and wrist) 04/18/2021 at PRN Yes Reported, Patient insulin glargine (LANTUS VIAL) 100 UNIT/ML vial Inject 45 Units Subcutaneous At Bedtime 04/18/2021 at PM Yes Reported, Patient Insulin Lispro (HUMALOG SC) Inject Subcutaneous 3 times daily (with meals) Sliding scale + carb coverage Yes Reported, Patient lisinopril-hydrochlorothiazide (ZESTORETIC) 20-12.5 MG tablet Take 1 tablet by mouth daily 04/18/2021 at PM Yes Fidencio Solis MD melatonin 3 MG CAPS Take 3 mg by mouth At Bedtime 04/18/2021 at PM Yes Reported, Patient nitroGLYcerin (NITROSTAT) 0.[address] 1 tablet (0.4 mg) under the tongue every 5 minutes as needed for chest pain (If pain is not relieved 5 minutes after 1st dose call 911) at neverused Yes Fidencio Solis MD Polyethylene Glycol 400 (BLINK TEARS OP) Place 1 drop into both eyes daily as needed 04/18/2021 at hashere Yes Reported, Patient rosuvastatin (CRESTOR) 40 MG tablet Take 1 tablet (40 mg) by mouth every evening 04/18/2021 at PM Yes Fidencio Solis MD sertraline (ZOLOFT) 50 MG tablet Take 50 mg by mouth daily 04/18/2021 at AM Yes Reported, Patient Turmeric 500 MG CAPS Take 1 capsule by mouth every morning 04/18/2021 at AM Yes Reported, Patient UNABLE TO FIND Take 1 teaspoonful by mouth at bedtime. MEDICATION NAME: Calm Magnesium Supplement. Mix powder with 8 ounces of hot water. 04/18/2021 Yes Unknown, Entered By History Continuous Blood Gluc Sensor (DEXCOM G6 SENSOR) MISC Unknown, Entered By History ONE TOUCH ULTRA TEST STRP as directed Roberto Linder MD SYRINGE B-D MICRO FINE 1/2 CC SYRINGES as directed Roberto Linder MD The information provided in this note is only as accurate as the sources available at the time of update(s) Associated attestation - Enriqueta Diaz RPH - 04/23/2021 12:40 PM CDT Enriqueta Diaz, PharmD, BCPS Plan of Care - Chelo Mendieta RN - 04/23/2021 6:30 AM CDT 1900h-0700h: Patient AOx4. O2Sat 95% on 1.5lpm of O2 via NC. Clear bilateral breath sound in upper lobes & diminished in lower. Denies chest pain/SOB. Tolerating Mod CHO. Denies n/v. Voding adequately to urinal. Hypoactive BSx4, +flatus, -BM. Assist of 1, GB+FWW. Sternum incision closed w/ liquid bandage, pacer wires capped, x1 CT to water seal draining serosanguineous drainage, - leak. Incision w/ liq bandage, HEIDY on L groin. L knee & L ankle. Received w/ insulin infusion running at 5.5 units/hr; dose adjusted every hr as per BG. NS TKO. Latest Hgb 8.2 0226h: Titrated O2 to 1lpm; tolerated from 2200h to 0200h, then he started to desaturate while sleeping as low as 87%. Increased O2 back to 1.5lpm. 0400h: BG 77 mg/dl; stopped insulin infusion. 0600h: BMP & CBC Plan of Care - Kenyatta Kolb RN - 04/22/2021 6:21 PM CDT VSS on 1 liter of oxygen via nasal cannula. A/O x4. Lung sounds clear. Bowel sounds hypoactive. IV saline locked. Hgb 6.8, given 1 unit RBCs. Tele NSR. Up with assist of 1, gaitbelt and walker. Pt denies pain. Voiding. Mod CHO diet. Insulin gtt restarted due to worsening blood glucoses. Plan of Care - Kentrell Moody RN - 04/22/2021 6:42 AM CDT DATE & TIME: 04/21/21 1900 - 04/22/21 0700 COGNITION/BEHAVIOR: A&Ox4. Is briefly confused when he awakes, particularly to time. With reorientation, this quickly improves. Has been sleeping well. Vital signs: Temp: 97.8 ??F (36.6 ??C) Temp src: Oral BP: (!) 143/63 Pulse: 63 Resp: 18 SpO2: 95 % via 2 LPM NC while sleeping, RA when awake. TELEMETRY RHYTHM: SR MOBILITY: SBA PAIN: Denies DIET: 60g carb diet with no food intake this shift. Good fluid intake. RESP: LS clear, denies shortness of breath CV: HRRR, murmur present, denies chest pain GI/: Bowel sounds hypoactive throughout, endorses flatus. Carr removed. PV/NV: Grossly intact SKIN: Liquid bandage over incisions of the sternum, left groin, knee, and ankle. Dressing in place to the right neck. LINES: PIV saline locked. Two chest tubes to one atrium at -20cm H20 with output of about 560mL throughout the shift. LAB/BG: BG 345, 328. K, mag, and phos to be checked this AM. TESTS/PROCEDURES: POD# 3 from CAB x3 Plan of Care - Jimy Arrington RN - 04/21/2021 6:59 PM CDT A+O x 4, with some confusion while waking up. PO day 2 from CABG x 3. Was on IMC because of an insulin drip. Now off of drip and onto sliding scale. Recently upped his insulin coverage due to high BG readings. Chest tubes x 2 to one atrium; moderate drainage. Pacers wrapped and capped. Carr in place.Walked in the hallway today. Stand by assist. Not passing gas. Mod carb diet. VSS on RA. Discharge to be determined. Provider Notification - Jimy Arrington RN - 04/21/2021 6:20 PM CDT MD Notification Notified Person: MD Notified Person Name: Dr. Altamirano Notification Date/Time: 04/21/211816 Notification Interaction: Paged Purpose of Notification: Patient BG was 393. After 5 units of Novolog was given patient's BG continued to rise to 425. Orders Received: increased carb coverage and sliding scale with a one time bolus of 8 units of Novolog. Comments: Plan of Care - Kay Sinclair RN - 04/20/2021 11:[address] Rea re: stop insulin gtt and transition to subcutaneous coverage but Hospitalist service had not been consulted yet so keeping drip over night. Plan of Care - Becca Garibay RN - 04/20/2021 10:26 PM CDT Txf from ICU this afternoon. VSS. A/O. Up-1/belt/walker. Incisions CDI. CT intact. Pacer capped. Tylenol given, minimal pain. Tolerating diet, low appetite, denies N/V. Carr good UOP. Tele SR. Insulingtt cont, algo 4. Sugar check Q2. Baseline neuropathy. Pt had 6 beats of Vtach 2215. VSS. Plan of Care - Brandon Santizo RN - 04/20/2021 6:33 AM CDT Pt A&O Perrla bilat. N/V X2 emesis, medicated with PRN's. I.S. to 1000, minimal complaints of pain, PRN's given. Phenylephrine on and off t/o night. 1L 5% Albumin given for low CVP/HOTN. Chest tubeoutput slowing, making adequate UOP. Pacer capped. Dangled/chaired(pt endorses spraining left ankle a few days prior to O.R.). Gait steady with SBA of 2. Spouse Michaela updated with plan of care and spoke with Ceci as well. Op Note - Kendra, Kushal Malik MD - 04/19/2021 1:28 PM CDT Procedure Date: 04/19/2021 REFERRING GLUE MACHINE OPERATOR: Fidencio Solis MD; Hallie Maldonado NP PREOPERATIVE DIAGNOSIS: Severe 3-vessel artery disease. POSTOPERATIVE DIAGNOSIS: Severe 3-vessel artery disease. SURGEON: Kushal Gardner MD TANK CLEANER: Lucio Black MD and Deepak Massey PA-C NAME OF OPERATION: Coronary artery bypass grafting x 3 with left internal mammary artery to the leftanterior descending, reverse saphenous vein graft to the posterior descending artery, reverse saphenous vein graft to the obtuse marginal 2 artery, endoscopic vein harvest from the left lower extremity, intraoperative KARIE. ANESTHESIA: General endotracheal. INDICATIONS FOR PROCEDURE: Mr. Lind is a very pleasant 70-year-old gentleman with history of coronary artery disease, status post PCI in 2015, with diabetes, hypertension and hyperlipidemia, who recently underwent a coronary angiogram for abnormal stress test involving the entire inferior and inferolateral wall. The coronary angiogram demonstrated severe 3-vessel coronary artery disease with hemodynamically significant LAD disease, significant PDA disease and a totally occluded OM2. He was taken to the operating room today for coronary artery bypass grafting. OPERATIVE FINDINGS: The patient had an overall normal LV systolic size and function. His left internal mammary artery was a good quality conduit with excellent flow, measuring 3 mm in diameter. It was a large conduit. The left greater saphenous vein was a good quality conduit but was somewhat thick walled and it was up to 4 mm in diameter. The posterior descending artery had minimal disease and the probe size was 1.5 mm. The obtuse marginal 2 artery had mild disease and the probe size was 1.5 mm. The mid to distal LAD had mild disease and the probe size was 1.5 mm as well. We examined the obtuse marginal artery 1 artery, but it was too small for bypass grafting. DESCRIPTION OF PROCEDURE: After informed consent was obtained, the patient was brought down to the operating room and was placed on the OR table in supine position. Intravenous and intra-arterial lineswere begun. While monitoring his blood pressure and EKG tracing, he was anesthetized and intubated using a single lumen endotracheal tube. His entire chest, abdomen, both groins and legs were prepped down to the toes using multiple layers of DuraPrep. He was draped in a sterile field. A median sternotomy was performed, and in the meantime, the left greater saphenous vein was harvested endoscopically.The left internal mammary artery was taken down. Prior to clipping the DOUGLASS distally, the patient was fully heparinized. The sternal edges were retracted laterally, and the pericardium was opened to suspend the heart in a pericardial cradle. The ascending aorta and the right atrial appendage were cannulated. A retrograde cardioplegia catheter was placed in the coronary sinus without difficulty. An antegrade needle/aortic root vent was placed in the ascending aorta as well. After appropriate ACT level was achieved, cardiopulmonary bypass was established. The patient was kept normothermic during the entire operation. The aorta was then crossclamped and antegrade cold blood cardioplegia was given to f ully arrest the heart. The patient went into good diastolic arrest without any LV distention. Following this, intermittent retrograde cardioplegia doses were given on average every 15 minutes for myocardial protection while the aorta was crossclamped. The first coronary vessel grafted was the posterior descending artery. Conduit used was a saphenous vein. This anastomosis was performed in an end-to-side fashion using running 7-0 Prolene. Next, the obtuse marginal 2 artery was grafted. Another saphenous vein was used as a conduit. This anastomosis was performed in an end-to-side fashion using running 7-0 Prolene. Next, the DOUGLASS to LAD anastomosis was performed. This was also done in an end-to-side fashion using running 7-0 Prolene. This anastomosis was protected by tacking the DOUGLASS pedicle down to the epicardium using interrupted 6-0 Prolene. Retrograde repeat photocomposing machine operator was given and the aortic crossclamp was removed. Aortic cross-clamp time was 60 minutes. A partial clamp was placed on the mid ascending aorta. Two 4 mm aortotomies were created to perform the 2 proximal vein anastomoses in an end-to-side fashion using running 6-0 Prolene. The partial clamp was removed. The patient was weaned off cardiopulmonary bypass with low-dose epinephrine and Grayson-Synephrine drips. Total cardiopulmonary bypass time was 93 minutes. Once the patient remained stable off bypass, the venous cannula was removed and protamine was given.The aortic cannula was subsequently removed as well. Temporary ventricular pacer wires placed in theRV muscle and 32 [place] straight chest tubes were placed in the mediastinum as well. These were all brought out percutaneously below the sternotomy incision and secured to the skin using 2-0 Ethibond. The right pleural space was slightly opened. The mediastinum was irrigated with antibiotic saline andhemostasis was achieved. The sternum was reapproximated using multiple interrupted single and doublewires. The incision was closed in layers of running Vicryl suture. Skin was closed using 3-0 Vicryl and was sealed using Dermabond. There were no intraoperative complications and the patient tolerated the operation well. No blood products were given intraoperatively. All sponge counts, needle counts and instrument counts were correct x 2 at the end of the operation. ESTIMATED BLOOD LOSS: Unknown. SPECIMEN REMOVED: None. The patient was brought to the ICU in hemodynamically stable condition. Kushal Gardner MD MT: PAKMT Name: CECI LIND Account: [id number] : 1950 Procedure Date: 04/19/2021 Document: [id number] cc: MD Hallie Gonzalez APRN, COMM[employer]ITY [employer]ARD MEMBER Brief Op Note - Lucio Black MD - 04/19/2021 12:54 PM CDT [facility] Brief Operative Note Pre-operative diagnosis: CAD (coronary artery disease) [I25.10] Post-operative diagnosis Same as pre-operative diagnosis Procedure: Procedure(s): CORONARY ARTERY BYPASS GRAFT X 3 (DOUGLASS-LAD, SV-OM, SV-PDA), WITH LEFT LOWER EXTREMITY ENDOSCOPIC VEIN HARVEST, ON PUMP WITH KARIE READ BY ANESTHESIOLOGIST DR GUTIERREZ. Surgeon: Surgeon(s) and Role: * Kushal Gardner MD - Primary * Deepak Massey PA-C - Assisting * Lucio Black MD - Fellow - Assisting Anesthesia: General Estimated blood loss: 1000 ml Drains: Chest tubes x 2 (meds and left pleural) Specimens: ID Type Source Tests Collected by Time Destination A : STAT ARTERIAL BLOOD Blood Line, arterial CBC WITH PLATELETS, BASIC METABOLIC PANEL, FIBRINOGEN ACTIVITY, PARTIAL THROMBOPLASTIN TIME, INR Kushal Gardner MD 04/19/2021 12:16 PM Findings: see op note. Complications: None. Implants: * No implants in log * documented in this encounter Plan of Treatment Upcoming Encounters Date Type Specialty Care Team Description 05/15/2022 Hospital Encounter Surgery Singh Torres MD [facility] [address] [place] [address] (Wo rk) 05/15/2022 Surgery Surgery Neo Torres MD BLEPHAROPLASTY BILATERAL [facility] PTOSIS REPAIR BILATERAL [address] [place] [address] (Wo rk) 06/25/2022 Ancillary Procedure Cardiology Kirk Silver MD [address] [place] [address] (Wo rk) Scheduled Orders Name Type Priority Associated Diagnoses Order S chedule XR Chest 2 Views Imaging Timed Enter condi tion for order release in comm ents for 1 Occurrences sta rting 04/24/2021 Scheduled Procedures Name Priority Associated Diagnoses Date/Time REPAIR, PTOSIS, BILATERAL, Dermatochalas is 05/15/2022 7:30 AM CDT WITH BILATERAL BLEPHAROPLASTY 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 REPAIR, ECTROPION, EYE, Dermatochalasis 05/15/2022 7:30 AM CDT BILATERAL 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 BASIC METABOLIC PANEL STAT 04/25/2021 10:04 Re sults for this AM CDT procedure are i n the results section. CBC WITH PLATELETS STAT 04/25/2021 10:04 Resul ts for this AM CDT procedure are i n the results section. GLUCOSE BY METER Routine 04/25/2021 6:41 AM Resul ts for this CDT procedure are i n the results section. GLUCOSE BY METER Routine 04/25/2021 2:24 AM Resul ts for this CDT procedure are i n the results section. GLUCOSE BY METER Routine 04/24/2021 9:15 PM Resul ts for this CDT procedure are i n the results section. GLUCOSE BY METER Routine 04/24/2021 5:06 PM Resul ts for this CDT procedure are i n the results section. POTASSIUM Timed 04/24/2021 12:55 Results for this PM CDT procedure are i n the results section. GLUCOSE BY METER Routine 04/24/2021 12:13 Results for this PM CDT procedure are i n the results section. XR CHEST 2 VIEWS Routine 04/24/2021 9:12 AM Resul ts for this CDT procedure are i n the results section. GLUCOSE BY METER Routine 04/24/2021 7:50 AM Resul ts for this CDT procedure are i n the results section. PHOSPHORUS Routine 04/24/2021 7:38 AM Results f or this CDT procedure are i n the results section. MAGNESIUM Routine 04/24/2021 7:38 AM Results f or this CDT procedure are i n the results section. BASIC METABOLIC PANEL Routine 04/24/2021 7:38 AM Results for this CDT procedure are i n the results section. CBC WITH PLATELETS Routine 04/24/2021 7:38 AM Res ults for this CDT procedure are i n the results section. GLUCOSE BY METER Routine 04/24/2021 2:07 AM Resul ts for this CDT procedure are i n the results section. GLUCOSE BY METER Routine 04/23/2021 11:12 Results for this PM CDT procedure are i n the results section. GLUCOSE BY METER Routine 04/23/2021 5:03 PM Resul ts for this CDT procedure are i n the results section. GLUCOSE BY METER Routine 04/23/2021 12:51 Results for this PM CDT procedure are i n the results section. PHOSPHORUS Routine 04/23/2021 6:58 AM Results f or this CDT procedure are i n the results section. MAGNESIUM Routine 04/23/2021 6:58 AM Results f or this CDT procedure are i n the results section. BASIC METABOLIC PANEL Routine 04/23/2021 6:58 AM Results for this CDT procedure are i n the results section. HEMOGLOBIN A1C Routine 04/23/2021 6:57 AM Results for this CDT procedure are i n the results section. CBC WITH PLATELETS Routine 04/23/2021 6:57 AM Res ults for this CDT procedure are i n the results section. GLUCOSE BY METER Routine 04/23/2021 6:19 AM Resul ts for this CDT procedure are i n the results section. GLUCOSE BY METER Routine 04/23/2021 5:20 AM Resul ts for this CDT procedure are i n the results section. GLUCOSE BY METER Routine 04/23/2021 4:27 AM Resul ts for this CDT procedure are i n the results section. GLUCOSE BY METER Routine 04/23/2021 3:13 AM Resul ts for this CDT procedure are i n the results section. GLUCOSE BY METER Routine 04/23/2021 2:07 AM Resul ts for this CDT procedure are i n the results section. GLUCOSE BY METER Routine 04/23/2021 1:07 AM Resul ts for this CDT procedure are i n the results section. GLUCOSE BY METER Routine 04/23/2021 12:10 Results for this AM CDT procedure are i n the results section. GLUCOSE BY METER Routine 04/22/2021 11:13 Results for this PM CDT procedure are i n the results section. GLUCOSE BY METER Routine 04/22/2021 10:15 Results for this PM CDT procedure are i n the results section. GLUCOSE BY METER Routine 04/22/2021 9:06 PM Resul ts for this CDT procedure are i n the results section. GLUCOSE BY METER Routine 04/22/2021 7:58 PM Resul ts for this CDT procedure are i n the results section. GLUCOSE BY METER Routine 04/22/2021 7:06 PM Resul ts for this CDT procedure are i n the results section. GLUCOSE BY METER Routine 04/22/2021 6:03 PM Resul ts for this CDT procedure are i n the results section. HEMOGLOBIN A1C Routine 04/22/2021 5:54 PM Results for this CDT procedure are i n the results section. HEMOGLOBIN Timed 04/22/2021 5:54 PM Results f or this CDT procedure are i n the results section. GLUCOSE BY METER Routine 04/22/2021 4:46 PM Resul ts for this CDT procedure are i n the results section. GLUCOSE BY METER Routine 04/22/2021 1:50 PM Resul ts for this CDT procedure are i n the results section. TRANSFUSE RED BLOOD Routine 04/22/2021 10:45 CELLS (UNIT) AM CDT PREPARE RED BLOOD CELLS Routine 04/22/2021 8:45 AM Results for this (UNIT) CDT procedure are i n the results section. TYPE AND SCREEN, ADULT Routine 04/22/2021 7:38 AM Results for this CDT procedure are i n the results section. PHOSPHORUS Routine 04/22/2021 7:38 AM Results f or this CDT procedure are i n the results section. MAGNESIUM Routine 04/22/2021 7:38 AM Results f or this CDT procedure are i n the results section. ABO/RH TYPE AND SCREEN Add-On 04/22/2021 7:38 AM Results for this CDT procedure are i n the results section. BASIC METABOLIC PANEL Routine 04/22/2021 7:38 AM Results for this CDT procedure are i n the results section. CBC WITH PLATELETS Routine 04/22/2021 7:38 AM Res ults for this CDT procedure are i n the results section. GLUCOSE BY METER Routine 04/22/2021 2:25 AM Resul ts for this CDT procedure are i n the results section. GLUCOSE BY METER Routine 04/21/2021 10:47 Results for this PM CDT procedure are i n the results section. HEMOGLOBIN A1C Routine 04/21/2021 6:38 PM Results for this CDT procedure are i n the results section. GLUCOSE BY METER Routine 04/21/2021 6:09 PM Resul ts for this CDT procedure are i n the results section. GLUCOSE BY METER Routine 04/21/2021 5:41 PM Resul ts for this CDT procedure are i n the results section. GLUCOSE BY METER Routine 04/21/2021 12:32 Results for this PM CDT procedure are i n the results section. HEMOGLOBIN A1C Routine 04/21/2021 11:57 Results f or this AM CDT procedure are i n the results section. CBC WITH PLATELETS Timed 04/21/2021 11:57 Resul ts for this AM CDT procedure are i n the results section. ARTERIAL PANEL POCT Routine 04/21/2021 11:39 Resu lts for this (LAB ONLY) AM CDT procedure are i n the results section. IRON AND IRON BINDING Routine 04/21/2021 8:05 AM Results for this CAPACITY CDT procedure are i n the results section. FERRITIN Routine 04/21/2021 8:05 AM Results f or this CDT procedure are i n the results section. BASIC METABOLIC PANEL Routine 04/21/2021 8:05 AM Results for this CDT procedure are i n the results section. CBC WITH PLATELETS Routine 04/21/2021 8:05 AM Res ults for this CDT procedure are i n the results section. GLUCOSE BY METER Routine 04/21/2021 8:01 AM Resul ts for this CDT procedure are i n the results section. GLUCOSE BY METER Routine 04/21/2021 5:23 AM Resul ts for this CDT procedure are i n the results section. GLUCOSE BY METER Routine 04/21/2021 2:09 AM Resul ts for this CDT procedure are i n the results section. GLUCOSE BY METER Routine 04/21/2021 12:10 Results for this AM CDT procedure are i n the results section. GLUCOSE BY METER Routine 04/20/2021 10:07 Results for this PM CDT procedure are i n the results section. GLUCOSE BY METER Routine 04/20/2021 8:06 PM Resul ts for this CDT procedure are i n the results section. GLUCOSE BY METER Routine 04/20/2021 6:23 PM Resul ts for this CDT procedure are i n the results section. GLUCOSE BY METER Routine 04/20/2021 4:03 PM Resul ts for this CDT procedure are i n the results section. GLUCOSE BY METER Routine 04/20/2021 2:02 PM Resul ts for this CDT procedure are i n the results section. GLUCOSE BY METER Routine 04/20/2021 12:26 Results for this PM CDT procedure are i n the results section. GLUCOSE BY METER Routine 04/20/2021 10:10 Results for this AM CDT procedure are i n the results section. GLUCOSE BY METER Routine 04/20/2021 8:04 AM Resul ts for this CDT procedure are i n the results section. EKG 12-LEAD, TRACING Routine 04/20/2021 7:43 AM R esults for this ONLY CDT procedure are i n the results section. GLUCOSE BY METER Routine 04/20/2021 6:57 AM Resul ts for this CDT procedure are i n the results section. XR CHEST PORT 1 VIEW Routine 04/20/2021 6:20 AM R esults for this CDT procedure are i n the results section. IONIZED CALCIUM Routine 04/20/2021 4:43 AM Result s for this CDT procedure are i n the results section. PHOSPHORUS Routine 04/20/2021 4:42 AM Results f or this CDT procedure are i n the results section. MAGNESIUM Routine 04/20/2021 4:42 AM Results f or this CDT procedure are i n the results section. BASIC METABOLIC PANEL Routine 04/20/2021 4:42 AM Results for this CDT procedure are i n the results section. CBC WITH PLATELETS Routine 04/20/2021 4:42 AM Res ults for this CDT procedure are i n the results section. GLUCOSE BY METER Routine 04/20/2021 4:10 AM Resul ts for this CDT procedure are i n the results section. GLUCOSE BY METER Routine 04/20/2021 2:24 AM Resul ts for this CDT procedure are i n the results section. GLUCOSE BY METER Routine 04/20/2021 1:05 AM Resul ts for this CDT procedure are i n the results section. COMPREHENSIVE METABOLIC Routine 04/20/2021 12:09 Results for this PANEL AM CDT procedure are i n the results section. GLUCOSE BY METER Routine 04/20/2021 12:04 Results for this AM CDT procedure are i n the results section. GLUCOSE BY METER Routine 04/19/2021 10:21 Results for this PM CDT procedure are i n the results section. GLUCOSE BY METER Routine 04/19/2021 9:00 PM Resul ts for this CDT procedure are i n the results section. GLUCOSE BY METER Routine 04/19/2021 8:12 PM Resul ts for this CDT procedure are i n the results section. GLUCOSE BY METER Routine 04/19/2021 7:00 PM Resul ts for this CDT procedure are i n the results section. GLUCOSE BY METER Routine 04/19/2021 6:26 PM Resul ts for this CDT procedure are i n the results section. GLUCOSE BY METER Routine 04/19/2021 4:58 PM Resul ts for this CDT procedure are i n the results section. BLOOD GAS ARTERIAL WITH Routine 04/19/2021 4:58 PM Results for this OXYHEMOGLOBIN CDT procedure are in the results section. GLUCOSE BY METER Routine 04/19/2021 4:20 PM Resul ts for this CDT procedure are i n the results section. GLUCOSE BY METER Routine 04/19/2021 3:05 PM Resul ts for this CDT procedure are i n the results section. GLUCOSE BY METER Routine 04/19/2021 2:13 PM Resul ts for this CDT procedure are i n the results section. BLOOD GAS ARTERIAL WITH STAT 04/19/2021 2:07 PM Results for this OXYHEMOGLOBIN CDT procedure are in the results section. POTASSIUM Timed 04/19/2021 2:07 PM Results f or this CDT procedure are i n the results section. PHOSPHORUS STAT 04/19/2021 2:07 PM Results f or this CDT procedure are i n the results section. MAGNESIUM STAT 04/19/2021 2:07 PM Results f or this CDT procedure are i n the results section. LACTIC ACID WHOLE BLOOD STAT 04/19/2021 2:07 PM Results for this CDT procedure are i n the results section. COMPREHENSIVE METABOLIC STAT 04/19/2021 2:07 PM Results for this PANEL CDT procedure are i n the results section. IONIZED CALCIUM STAT 04/19/2021 2:07 PM Result s for this CDT procedure are i n the results section. CBC WITH PLATELETS STAT 04/19/2021 2:07 PM Res ults for this CDT procedure are i n the results section. INR STAT 04/19/2021 2:06 PM Results f or this CDT procedure are i n the results section. PARTIAL THROMBOPLASTIN STAT 04/19/2021 2:06 PM Results for this TIME CDT procedure are i n the results section. XR CHEST PORT 1 VIEW STAT 04/19/2021 2:00 PM R esults for this CDT procedure are i n the results section. EKG 12-LEAD, TRACING STAT 04/19/2021 1:46 PM R esults for this ONLY CDT procedure are i n the results section. ARTERIAL PANEL POCT Routine 04/19/2021 12:17 Resu lts for this (LAB ONLY) PM CDT procedure are i n the results section. INR STAT 04/19/2021 12:16 Results for this PM CDT procedure are i n the results section. PARTIAL THROMBOPLASTIN STAT 04/19/2021 12:16 R esults for this TIME PM CDT procedure are i n the results section. FIBRINOGEN ACTIVITY STAT 04/19/2021 12:16 Resu lts for this PM CDT procedure are i n the results section. BASIC METABOLIC PANEL STAT 04/19/2021 12:16 Re sults for this PM CDT procedure are i n the results section. CBC WITH PLATELETS STAT 04/19/2021 12:16 Resul ts for this PM CDT procedure are i n the results section. ARTERIAL PANEL POCT Routine 04/19/2021 11:05 Resu lts for this (LAB ONLY) AM CDT procedure are i n the results section. VENOUS PANEL POCT (LAB Routine 04/19/2021 10:36 R esults for this ONLY) AM CDT procedure are i n the results section. ARTERIAL PANEL POCT Routine 04/19/2021 10:03 Resu lts for this (LAB ONLY) AM CDT procedure are i n the results section. GLUCOSE BY METER Routine 04/19/2021 10:00 Results for this AM CDT procedure are i n the results section. GLUCOSE BY METER Routine 04/19/2021 8:57 AM Resul ts for this CDT procedure are i n the results section. ARTERIAL PANEL POCT Routine 04/19/2021 8:10 AM Re sults for this (LAB ONLY) CDT procedure are i n the results section. EKG 12-LEAD, TRACING STAT 04/19/2021 7:12 AM R esults for this ONLY CDT procedure are i n the results section. POTASSIUM STAT 04/19/2021 6:08 AM Results f or this CDT procedure are i n the results section. HEMOGLOBIN STAT 04/19/2021 6:08 AM Results f or this CDT procedure are i n the results section. CREATININE STAT 04/19/2021 6:08 AM Results f or this CDT procedure are i n the results section. GLUCOSE STAT 04/19/2021 6:08 AM Results f or this CDT procedure are i n the results section. BYPASS GRAFT ARTERY Routine 04/19/2021 5:27 AM CAD (coronary CORONARY CDT artery disease) documented in this encounter Results (ABNORMAL) Magnesium (04/25/2021 10:04 AM CDT) P athologist Signature Magnesium 2.9 (H) 1.6 - 2.3 04/25/2021 LABORATORY mg/dL 11:27 AM CDT Specimen Anatomical Collection Method / Collection Time Recei shyla Time (Source) Location / Volume Laterality Blood STRUCTURE OF RIGHT Venipuncture / 04/25/2021 10:04 UPPER LIMB / Unknown AM CDT 10:20 AM CDT Unknown Kushal Gardner MD LAB - BLOOD ORDERABLES Performing Organization Address City/State/ZIP Code [place] [address] [phone] [facility] [facility] [address], [address] (ABNORMAL) Basic metabolic panel (04/25/2021 10:04 AM CDT) Patholo gist Method Time Signature Sodium 144 133 - 144 04/25/2021 LABORATORY mmol/L 10:54 AM CDT Potassium 4.2 3.4 - 5.3 04/25/2021 LABORATORY mmol/L 10:54 AM CDT Chloride 112 (H) 94 - 109 04/25/2021 LABORATORY mmol/L 10:54 AM CDT Carbon Dioxide 29 20 - 32 04/25/2021 LABORATORY (CO2) mmol/L 10:54 AM CDT Anion Gap 3 3 - 14 04/25/2021 LABORATORY mmol/L 10:54 AM CDT Urea Nitrogen 56 (H) 7 - 30 04/25/2021 LABORATORY mg/dL 10:54 AM CDT Creatinine 1.34 (H) 0.66 - 04/25/2021 LABORATORY 1.25 mg/dL 10:54 AM CDT Calcium 8.5 8.5 - 10.1 04/25/2021 LABORATORY mg/dL 10:54 AM CDT Glucose 261 (H) 70 - 99 04/25/2021 LABORATORY mg/dL 10:54 AM CDT GFR Estimate 53 (L) >60 04/25/2021 LABORATORY mL/min/1.7 10:54 AM CDT 3m2 Comment: As of February [...] Laterality Blood STRUCTURE OF RIGHT Venipuncture / 04/25/2021 10:04 UPPER LIMB / Unknown AM CDT 10:20 AM CDT Unknown Brenda Willoughby PA-C LAB - BLOOD ORDERABLES Performing Organization Address City/State/ZIP Code [place] [address] [facility] [facility] [address], [address] (ABNORMAL) CBC with platelets (04/25/2021 10:04 AM CDT) [facility] gist Method Time Signature WBC Count 10.7 4.0 - 11.0 04/25/2021 LABORATORY 10e3/uL 10:37 AM CDT RBC Count 2.95 (L) 4.40 - 04/25/2021 LABORATORY 5.90 10:37 AM CDT 10e6/uL Hemoglobin 8.8 (L) 13.3 - 04/25/2021 LABORATORY 17.7 g/dL 10:37 AM CDT Hematocrit 26.8 (L) 40.0 - 04/25/2021 LABORATORY 53.0 % 10:37 AM CDT MCV 91 78 - 100 04/25/2021 LABORATORY fL 10:37 AM CDT MCH 29.8 26.5 - 04/25/2021 LABORATORY 33.0 pg 10:37 AM CDT MCHC 32.8 31.5 - 04/25/2021 LABORATORY 36.5 g/dL 10:37 AM CDT RDW 13.0 10.0 - 04/25/2021 LABORATORY 15.0 % 10:37 AM CDT Platelet Count 254 150 - 450 04/25/2021 LABORATORY 10e3/uL 10:37 AM CDT Specimen Anatomical Collection Method / Collection Time Recei shyla Time (Source) Location / Volume Laterality Blood STRUCTURE OF RIGHT Venipuncture / 04/25/2021 10:04 UPPER LIMB / Unknown AM CDT 10:20 AM CDT Unknown Brenda Willoughby PA-C LAB - BLOOD ORDERABLES Performing Organization Address City/State/ZIP Code Phon e Number [place]ATORY [place] [address] [facility] [address], [address] (ABNORMAL) Glucose by meter (04/25/2021 6:41 AM CDT) P athologist Signature GLUCOSE BY 180 (H) 70 - 99 04/25/2021 LABORATORY METER POCT mg/dL 6:47 AM CDT POC Specimen Anatomical Collection Method Collection Time Receive d Time (Source) Location / / Volume Laterality Blood BLOOD SPECIMEN / 04/25/2021 6:41 AM 04/25 6:47 Unknown CDT AM CDT Kushal Gardner MD LAB - BEAKER POCT Performing Organization Address City/State/ZIP Code Phon e Number LAB[place]ATORY [place] [address] Care Lab [address] 1st floor, Room 20B (ABNORMAL) Glucose by meter (04/25/2021 2:24 AM CDT) P athologist Signature GLUCOSE BY 241 (H) 70 - 99 04/25/2021 LABORATORY METER POCT mg/dL 2:31 AM CDT POC Specimen Anatomical Collection Method Collection Time Receive d Time (Source) Location / / Volume Laterality Blood BLOOD SPECIMEN / 04/25/2021 2:24 AM 04/25 2:31 Unknown CDT AM CDT Kushal Gardner MD LAB - BEAKER POCT Performing Organization Address City/State/ZIP Code Phon e Number LAB[place]ORY [place] [address] Care Lab [address] 1[address] floor, Room 20B (ABNORMAL) Glucose by meter (04/24/2021 9:15 PM CDT) P athologist Signature GLUCOSE BY 298 (H) 70 - 99 04/24/2021 LABORATORY METER POCT mg/dL 9:24 PM CDT POC Comment: /LETICIA Notified Specimen Anatomical Collection Method Collection Time Receive d Time (Source) Location / / Volume Laterality Blood BLOOD SPECIMEN / 04/24/2021 9:15 PM 04/24 9:24 Unknown CDT PM CDT Kushal BORGES - BESTALIN POCT Performing Organization Address City/State/ZIP Code Phon e Number LAB[place]ATORY [place] [address] Care Lab [address] 1[address] floor, Room 20B (ABNORMAL) Glucose by meter (04/24/2021 5:06 PM CDT) P athologist Signature GLUCOSE BY 311 (H) 70 - 99 04/24/2021 LABORATORY METER POCT mg/dL 5:13 PM CDT POC Comment: Nae Notified Specimen Anatomical Collection Method Collection Time Receive d Time (Source) Location / / Volume Laterality Blood BLOOD SPECIMEN / 04/24/2021 5:06 PM 04/24 5:13 Unknown CDT PM CDT Kushal Gardner MD LAB - BESTALIN POCT Performing Organization Address City/State/ZIP Code Phon e Number LAB[place]ATORY [place] [address] Care Lab [address] 1[address], Room 20B Potassium (04/24/2021 12:55 PM CDT) P athologist Signature Potassium 4.2 3.4 - 5.3 04/24/2021 LABORATORY mmol/L 1:23 PM CDT Specimen Anatomical Collection Method / Collection Time Recei shyla Time (Source) Location / Volume Laterality Blood STRUCTURE OF RIGHT Venipuncture / 04/24/2021 12:55 1:06 UPPER LIMB / Unknown PM CDT PM CDT Unknown Cierra Marie MD LAB - BLOOD ORDERABLES Performing Organization Address City/State/ZIP Code [place] [address] Care Lab [address] 1[address], Room 20B (ABNORMAL) Glucose by meter (04/24/2021 12:13 PM CDT) athologist Signature GLUCOSE BY 314 (H) 70 - 99 04/24/2021 LABORATORY METER POCT mg/dL 12:20 PM CDT POC Specimen Anatomical Collection Method Collection Time Receive d Time (Source) Location / / Volume Laterality Blood BLOOD SPECIMEN / 04/24/2021 12:13 021 Unknown PM CDT 12:20 PM CDT Kushal Gardner MD LAB - BEAKER POCT Performing Organization Address City/State/ZIP Code Phon [place] [address] Care Lab [address] 1[address], Room 20B XR Chest 2 Views (04/24/2021 9:12 AM CDT) Anatomical Region Laterality Modality Chest Digital Radiography Specimen (Source) Anatomical Location Collection Method / Collectio n Time Received Time / Laterality Volume Impressions 04/24/2021 11:07 AM CDT IMPRESSION: No pneumothorax. No definite effusions. There are no acute infiltrates. The cardiac silhouette is n ot enlarged. Pulmonary vasculature is unremarkable. PATSY SANCHEZ MD Narrative 04/24/2021 11:07 AM CDT CHEST TWO VIEWS ??04/24/2021 9:12 AM HISTORY: Status post CABG, chest tubes r emoved. COMPARISON: April 20, 2021 Procedure Note Patsy Sanchez MD - 04/24/2021Fo rmatting of this note might be different from the original. CHEST TWO VIEWS 04/24/2021 9:12 AM HISTORY: Status post CABG, chest tubes r emoved. COMPARISON: April 20, 2021 IMPRESSION: No pneumothorax. No definite effusions. There are no acute infiltrates. The cardiac silhouette is n ot enlarged. Pulmonary vasculature is unremarkable. PATSY SANCHEZ MD Brenda Willoughby PA-C IMG DIAGNOSTIC IMAGING ORDER [place] (ABNORMAL) Glucose by meter (04/24/2021 7:50 AM CDT) athologist Signature GLUCOSE BY 208 (H) 70 - 99 04/24/2021 LABORATORY METER POCT mg/dL 7:57 AM CDT POC Specimen Anatomical Collection Method Collection Time Receive d Time (Source) Location / / Volume Laterality Blood BLOOD SPECIMEN / 04/24/2021 7:50 AM 04/24 7:57 Unknown CDT AM CDT Kushal Gardner MD LAB - BEAKER POCT Performing Organization Address City/State/ZIP Code Phon e Number [place]ORY [place] [address] Care Lab [address] 1[address], Room 20B (ABNORMAL) Phosphorus (04/24/2021 7:38 AM CDT) athologist [facility] Phosphorus 2.2 (L) 2.5 - 4.5 04/24/2021 LABORATORY mg/dL 8:19 AM CDT Specimen Anatomical Collection Method / Collection Time Recei shyla Time (Source) Location / Volume Laterality Blood BLOOD SPECIMEN / Venipuncture / 04/24/2021 7:38 2020 7:56 Unknown Unknown AM CDT AM CDT Kushal Gardner MD LAB - BLOOD ORDERABLES Performing Organization Address City/State/ZIP Code Phon e Number [place] [address] Care Lab [address] 1[address], Room 20B (ABNORMAL) Magnesium (04/24/2021 7:38 AM CDT) P athologist Signature Magnesium 2.9 (H) 1.6 - 2.3 04/24/2021 LABORATORY mg/dL 8:19 AM CDT Specimen Anatomical Collection Method / Collection Time Recei shyla Time (Source) Location / Volume Laterality Blood BLOOD SPECIMEN / Venipuncture / 04/24/2021 7:38 2020 7:56 Unknown Unknown AM CDT AM CDT Kushal Gardner MD LAB - BLOOD ORDERABLES Performing Organization Address City/State/ZIP Code [place] [address] [facility] Lab [address] 1[address] floor, Room 20B (ABNORMAL) CBC with platelets (04/24/2021 7:38 AM CDT) [facility] Method Time Signature WBC Count 10.8 4.0 - 11.0 04/24/2021 LABORATORY 10e3/uL 8:00 AM CDT RBC Count 2.87 (L) 4.40 - 04/24/2021 LABORATORY 5.90 8:00 AM CDT 10e6/uL Hemoglobin 8.3 (L) 13.3 - 04/24/2021 LABORATORY 17.7 g/dL 8:00 AM CDT Hematocrit 25.5 (L) 40.0 - 04/24/2021 LABORATORY 53.0 % 8:00 AM CDT MCV 89 78 - 100 04/24/2021 LABORATORY fL 8:00 AM CDT MCH 28.9 26.5 - 04/24/2021 LABORATORY 33.0 pg 8:00 AM CDT MCHC 32.5 31.5 - 04/24/2021 LABORATORY 36.5 g/dL 8:00 AM CDT RDW 12.6 10.0 - 04/24/2021 LABORATORY 15.0 % 8:00 AM CDT Platelet Count 243 150 - 450 04/24/2021 LABORATORY 10e3/uL 8:00 AM CDT Specimen Anatomical Collection Method / Collection Time Recei shyla Time (Source) Location / Volume Laterality Blood BLOOD SPECIMEN / Venipuncture / 04/24/2021 7:38 2020 7:56 Unknown Unknown AM CDT AM CDT Deepak Massey PA-C LAB - BLOOD ORDERABLES Performing Organization Address City/State/ZIP Code Phon e Number [place] [address] [facility] Lab [address] 1st floor, Room 20B (ABNORMAL) Basic metabolic panel (04/24/2021 7:38 AM CDT) [facility] Method Time Signature Sodium 143 133 - 144 04/24/2021 LABORATORY mmol/L 8:19 AM CDT Potassium 4.2 3.4 - 5.3 04/24/2021 LABORATORY mmol/L 8:19 AM CDT Chloride 110 (H) 94 - 109 04/24/2021 LABORATORY mmol/L 8:19 AM CDT Carbon Dioxide 30 20 - 32 04/24/2021 LABORATORY (CO2) mmol/L 8:19 AM CDT Anion Gap 3 3 - 14 04/24/2021 LABORATORY mmol/L 8:19 AM CDT Urea Nitrogen 54 (H) 7 - 30 04/24/2021 LABORATORY mg/dL 8:19 AM CDT Creatinine 1.30 (H) 0.66 - 04/24/2021 LABORATORY 1.25 mg/dL 8:19 AM CDT Calcium 8.3 (L) 8.5 - 10.1 04/24/2021 LABORATORY mg/dL 8:19 AM CDT Glucose 214 (H) 70 - 99 04/24/2021 LABORATORY mg/dL 8:19 AM CDT GFR Estimate 55 (L) >60 04/24/2021 LABORATORY mL/min/1.7 8:19 AM CDT 3m2 Comment: As of February [...] Laterality Blood BLOOD SPECIMEN / Venipuncture / 04/24/2021 7:38 2020 7:56 Unknown Unknown AM CDT AM CDT Deepak J Carda PA-C LAB - BLOOD ORDERABLES Performing Organization Address City/[facility]/ZIP Code Phon e Number [place] [address] Care Lab [address] 1[address], Room 20B (ABNORMAL) Glucose by meter (04/24/2021 2:07 AM CDT) P athologist Signature GLUCOSE BY 237 (H) 70 - 99 04/24/2021 LABORATORY METER POCT mg/dL 2:21 AM CDT POC Specimen Anatomical Collection Method Collection Time Receive d Time (Source) Location / / Volume Laterality Blood BLOOD SPECIMEN / 04/24/2021 2:07 AM 04/24 2:21 Unknown CDT AM CDT Kushal BORGES - BEAKER POCT Performing Organization Address City/[facility]/ZIP Code Phon e Number LAB[place]ORY [place] [address] Care Lab [address] 1[address], Room 20B (ABNORMAL) Glucose by meter (04/23/2021 11:12 PM CDT) P athologist Signature GLUCOSE BY 302 (H) 04/23/2021 LABORATORY METER POCT mg/dL 11:19 PM CDT POC Specimen Anatomical Collection Method Collection Time Receive d Time (Source) Location / / Volume Laterality Blood BLOOD SPECIMEN / 04/23/2021 11:12 021 Unknown PM CDT 11:19 PM CDT Kushal BORGES - NADER POCT Performing Organization Address City/[facility]/ZIP Code Phon e Number LAB[place]ORY [place] [address] Care Lab [address] 1[address], Room 20B (ABNORMAL) Glucose by meter (04/23/2021 5:03 PM CDT) P athologist Signature GLUCOSE BY 365 (H) 70 - 99 04/23/2021 LABORATORY METER POCT mg/dL 5:11 PM CDT POC Comment: Dr/RN Notified Specimen Anatomical Collection Method Collection Time Receive d Time (Source) Location / / Volume Laterality Blood BLOOD SPECIMEN / 04/23/2021 5:03 PM 04/23 5:11 Unknown CDT PM CDT Kushal BORGES - BESTALIN POCT Performing Organization Address City/State/ZIP Code Phon e Number LAB[place]ORY [place] [address] Care Lab [address] 1[address], Room 20B (ABNORMAL) Glucose by meter (04/23/2021 12:51 PM CDT) P athologist Signature GLUCOSE BY 302 (H) 70 - 99 04/23/2021 LABORATORY METER POCT mg/dL 12:57 PM CDT POC Specimen Anatomical Collection Method Collection Time Receive d Time (Source) Location / / Volume Laterality Blood BLOOD SPECIMEN / 04/23/2021 12:51 021 Unknown PM CDT 12:57 PM CDT Kushal BORGES - NADER POCT Performing Organization Address City/State/ZIP Code Phon e Number LAB[place]ATORY [place] [address] Care Lab [address] 1[address], Room 20B (ABNORMAL) Basic metabolic panel (04/23/2021 6:58 AM CDT) Patholo gist Method Time Signature Sodium 145 (H) 133 - 144 04/23/2021 LABORATORY mmol/L 7:55 AM CDT Potassium 4.2 3.4 - 5.3 04/23/2021 LABORATORY mmol/L 7:55 AM CDT Chloride 110 (H) 94 - 109 04/23/2021 LABORATORY mmol/L 7:55 AM CDT Carbon Dioxide 28 20 - 32 04/23/2021 LABORATORY (CO2) mmol/L 7:55 AM CDT Anion Gap 7 3 - 14 04/23/2021 LABORATORY mmol/L 7:55 AM CDT Urea Nitrogen 53 (H) 7 - 30 04/23/2021 LABORATORY mg/dL 7:55 AM CDT Creatinine 1.34 (H) 0.66 - 04/23/2021 LABORATORY 1.25 mg/dL 7:55 AM CDT Calcium 8.6 8.5 - 10.1 04/23/2021 LABORATORY mg/dL 7:55 AM CDT Glucose 135 (H) 70 - 99 04/23/2021 LABORATORY mg/dL 7:55 AM CDT GFR Estimate 53 (L) >60 04/23/2021 LABORATORY mL/min/1.7 7:55 AM CDT 3m2 Comment: [...] Laterality Blood STRUCTURE OF RIGHT Venipuncture / 04/23/2021 6:58 04/10 7:08 UPPER LIMB / Unknown AM CDT AM CDT Unknown Shavon Pisano PA-C LAB - BLOOD ORDERABLES Performing Organization Address City/State/ZIP Code Phon e Number [facility] [place] [address] Care Lab [address] 1[address], Room 20B Phosphorus (04/23/2021 6:58 AM CDT) athologist Signature Phosphorus 2.7 2.5 - 4.5 04/23/2021 LABORATORY mg/dL 7:55 AM CDT Specimen Anatomical Collection Method / Collection Time Recei shyla Time (Source) Location / Volume Laterality Blood STRUCTURE OF RIGHT Venipuncture / 04/23/2021 6:58 04/10 7:08 UPPER LIMB / Unknown AM CDT AM CDT Unknown Kushal Gardner MD LAB - BLOOD ORDERABLES Performing Organization Address City/State/ZIP Code Phon e Number [facility] [place] [address] Care Lab [address] 1[address], Room 20B (ABNORMAL) Magnesium (04/23/2021 6:58 AM CDT) athologist Signature Magnesium 2.9 (H) 1.6 - 2.3 04/23/2021 LABORATORY mg/dL 7:55 AM CDT Specimen Anatomical Collection Method / Collection Time Recei shyla Time (Source) Location / Volume Laterality Blood STRUCTURE OF RIGHT Venipuncture / 04/23/2021 6:58 04/10 7:08 UPPER LIMB / Unknown AM CDT AM CDT Unknown Kushal Gardner MD LAB - BLOOD ORDERABLES Performing Organization Address City/[facility]/ZIP Code Phon e Number [place] [address] Care Lab [address] 1[address], Room 20B (ABNORMAL) Hemoglobin A1c (04/23/2021 6:57 AM CDT) Analysis Performed At Patho logist Time Signature Hemoglobin A1C 7.0 (H) 0.0 - 5.6 04/23/2021 LABORATORY % 10:45 AM CDT Comment: Normal <5.7% Prediabetes 5.7-6.4% ?? Diabetes 6.5% or higher Note: Adopted from ADA consensus guideli anna. Specimen Anatomical Collection Method / Collection Time Recei shyla Time (Source) Location / Volume Laterality Blood STRUCTURE OF RIGHT Venipuncture / 04/23/2021 6:57 04/10 7:08 UPPER LIMB / Unknown AM CDT AM CDT Unknown Yasir Altamiarno DO LAB - BLOOD ORDERABLES Performing Organization Address City/State/ZIP Code Phon e Number [place] [address] [phone] Care Lab [address] 1[address], Room 20B (ABNORMAL) CBC with platelets (04/23/2021 6:57 AM CDT) Patholo gist Method Time Signature WBC Count 13.9 (H) 4.0 - 11.0 04/23/2021 LABORATORY 10e3/uL 7:19 AM CDT RBC Count 2.97 (L) 4.40 - 04/23/2021 LABORATORY 5.90 7:19 AM CDT 10e6/uL Hemoglobin 8.7 (L) 13.3 - 04/23/2021 LABORATORY 17.7 g/dL 7:19 AM CDT Hematocrit 26.7 (L) 40.0 - 04/23/2021 LABORATORY 53.0 % 7:19 AM CDT MCV 90 78 - 100 04/23/2021 LABORATORY fL 7:19 AM CDT MCH 29.3 26.5 - 04/23/2021 LABORATORY 33.0 pg 7:19 AM CDT MCHC 32.6 31.5 - 04/23/2021 LABORATORY 36.5 g/dL 7:19 AM CDT RDW 13.0 10.0 - 04/23/2021 LABORATORY 15.0 % 7:19 AM CDT Platelet Count 238 150 - 450 04/23/2021 LABORATORY 10e3/uL 7:19 AM CDT Specimen Anatomical Collection Method / Collection Time Recei shyla Time (Source) Location / Volume Laterality Blood STRUCTURE OF RIGHT Venipuncture / 04/23/2021 6:57 04/10 7:08 UPPER LIMB / Unknown AM CDT AM CDT Unknown Sahvon Pisano PA-C LAB - BLOOD ORDERABLES Performing Organization Address City/State/ZIP Code Phon e Number [place] [address] Care Lab [address] 1[address], Room 20B (ABNORMAL) Glucose by meter (04/23/2021 6:19 AM CDT) P athologist Signature GLUCOSE BY 114 (H) 70 - 99 04/23/2021 LABORATORY METER POCT mg/dL 6:25 AM CDT POC Specimen Anatomical Collection Method Collection Time Receive d Time (Source) Location / / Volume Laterality Blood BLOOD SPECIMEN / 04/23/2021 6:19 AM 04/23 6:25 Unknown CDT AM CDT Kushal Gardner MD LAB - BEAKER POCT Performing Organization Address City/State/ZIP Code Phon e Number LAB[place]ORY [place] [address] Care Lab [address] 1[address], Room 20B Glucose by meter (04/23/2021 5:20 AM CDT) P athologist Signature GLUCOSE BY 87 70 - 99 04/23/2021 LABORATORY METER POCT mg/dL 5:27 AM CDT POC Specimen Anatomical Collection Method Collection Time Receive d Time (Source) Location / / Volume Laterality Blood BLOOD SPECIMEN / 04/23/2021 5:20 AM 04/23 5:27 Unknown CDT AM CDT Kushal BORGES - NADER POCT Performing Organization Address City/State/ZIP Code Phon e Number [place]ORY [place] [address] Care Lab [address] 1[address], Room 20B Glucose by meter (04/23/2021 4:27 AM CDT) P athologist Signature GLUCOSE BY 77 70 - 99 04/23/2021 LABORATORY METER POCT mg/dL 4:34 AM CDT POC Specimen Anatomical Collection Method Collection Time Receive d Time (Source) Location / / Volume Laterality Blood BLOOD SPECIMEN / 04/23/2021 4:27 AM 04/23 4:34 Unknown CDT AM CDT Kushal DOE POCT Performing Organization Address City/[facility]/ZIP Code Phon e Number LAB[place]ATORY [place] [address] Care Lab [address] 1[address], Room 20B (ABNORMAL) Glucose by meter (04/23/2021 3:13 AM CDT) P athologist Signature GLUCOSE BY 100 (H) 70 - 99 04/23/2021 LABORATORY METER POCT mg/dL 3:19 AM CDT POC Specimen Anatomical Collection Method Collection Time Receive d Time (Source) Location / / Volume Laterality Blood BLOOD SPECIMEN / 04/23/2021 3:13 AM 04/23 3:19 Unknown CDT AM CDT Kushal DOE POCT Performing Organization Address City/State/ZIP Code Phon e Number LAB[place]ATORY [place] [address] Care Lab [address] 1[address], Room 20B (ABNORMAL) Glucose by meter (04/23/2021 2:07 AM CDT) P athologist Signature GLUCOSE BY 130 (H) 70 - 99 04/23/2021 LABORATORY METER POCT mg/dL 2:13 AM CDT POC Specimen Anatomical Collection Method Collection Time Receive d Time (Source) Location / / Volume Laterality Blood BLOOD SPECIMEN / 04/23/2021 2:07 AM 04/23 2:13 Unknown CDT AM CDT Kushal Gardner MD LAB - BEAKER POCT Performing Organization Address City/State/ZIP Code Phon e Number LAB[place]ORY [place] [address] Care Lab [address] 1[address], Room 20B (ABNORMAL) Glucose by meter (04/23/2021 1:07 AM CDT) P athologist Signature GLUCOSE BY 133 (H) 70 - 99 04/23/2021 LABORATORY METER POCT mg/dL 1:13 AM CDT POC Specimen Anatomical Collection Method Collection Time Receive d Time (Source) Location / / Volume Laterality Blood BLOOD SPECIMEN / 04/23/2021 1:07 AM 04/23 1:13 Unknown CDT AM CDT Kushal BORGES - BESTALIN POCT Performing Organization Address City/State/ZIP Code Phon e Number LAB[place] [address] Care Lab [address] 1[address], Room 20B (ABNORMAL) Glucose by meter (04/23/2021 12:10 AM CDT) P athologist Signature GLUCOSE BY 151 (H) 70 - 99 04/23/2021 LABORATORY METER POCT mg/dL 1:11 AM CDT POC Specimen Anatomical Collection Method Collection Time Receive d Time (Source) Location / / Volume Laterality Blood BLOOD SPECIMEN / 04/23/2021 12:10 021 1:11 Unknown AM CDT AM CDT Kushal Gardner MD LAB - BEAKER POCT Performing Organization Address City/State/ZIP Code Phon e Number LAB[place]ATORY [place] [address] Care Lab [address] 1[address], Room 20B (ABNORMAL) Glucose by meter (04/22/2021 11:13 PM CDT) P athologist Signature GLUCOSE BY 187 (H) 70 - 99 04/22/2021 LABORATORY METER POCT mg/dL 11:19 PM CDT POC Specimen Anatomical Collection Method Collection Time Receive d Time (Source) Location / / Volume Laterality Blood BLOOD SPECIMEN / 04/22/2021 11:13 021 Unknown PM CDT 11:19 PM CDT Kushal Gardner MD LAB - BEAKER POCT Performing Organization Address City/[facility]/ZIP Code Phon e Number LAB[place] [address] Care Lab [address] 1[address], Room 20B (ABNORMAL) Glucose by meter (04/22/2021 10:15 PM CDT) P athologist Signature GLUCOSE BY 221 (H) 70 - 99 04/22/2021 LABORATORY METER POCT mg/dL 10:22 PM CDT POC Specimen Anatomical Collection Method Collection Time Receive d Time (Source) Location / / Volume Laterality Blood BLOOD SPECIMEN / 04/22/2021 10:15 021 Unknown PM CDT 10:22 PM CDT Kushal Gardner MD LAB - BEAKER POCT Performing Organization Address City/State/ZIP Code Phon e Number [place] [address] Care Lab [address] 1[address], Room 20B (ABNORMAL) Glucose by meter (04/22/2021 9:06 PM CDT) P athologist Signature GLUCOSE BY 275 (H) 70 - 99 04/22/2021 LABORATORY METER POCT mg/dL 9:14 PM CDT POC Specimen Anatomical Collection Method Collection Time Receive d Time (Source) Location / / Volume Laterality Blood BLOOD SPECIMEN / 04/22/2021 9:06 PM 04/22 9:14 Unknown CDT PM CDT Kushal Gardner MD LAB - BESTALIN POCT Performing Organization Address City/[facility]/ZIP Code Phon e Number [place] [address] Care Lab [address] 1[address], Room 20B (ABNORMAL) Glucose by meter (04/22/2021 7:58 PM CDT) P athologist Signature GLUCOSE BY 353 (H) 70 - 99 04/22/2021 LABORATORY METER POCT mg/dL 8:05 PM CDT POC Specimen Anatomical Collection Method Collection Time Receive d Time (Source) Location / / Volume Laterality Blood BLOOD SPECIMEN / 04/22/2021 7:58 PM 04/22 8:05 Unknown CDT PM CDT Kushal BORGES - NADER POCT Performing Organization Address City/State/ZIP Code Phon e Number [place] [address] Care Lab [address] 1[address], Room 20B (ABNORMAL) Glucose by meter (04/22/2021 7:06 PM CDT) P athologist Signature GLUCOSE BY 391 (H) 70 - 99 04/22/2021 LABORATORY METER POCT mg/dL 7:12 PM CDT POC Specimen Anatomical Collection Method Collection Time Receive d Time (Source) Location / / Volume Laterality Blood BLOOD SPECIMEN / 04/22/2021 7:06 PM 04/22 7:12 Unknown CDT PM CDT Kushal Gardner MD LAB - NADER POCT Performing Organization Address City/State/ZIP Code Phon e Number [place] [address] Care Lab [address] 1[address], Room 20B (ABNORMAL) Glucose by meter (04/22/2021 6:03 PM CDT) athologist Signature GLUCOSE BY 453 (H) 70 - 99 04/22/2021 LABORATORY METER POCT mg/dL 6:10 PM CDT POC Specimen Anatomical Collection Method Collection Time Receive d Time (Source) Location / / Volume Laterality Blood BLOOD SPECIMEN / 04/22/2021 6:03 PM 04/22 6:10 Unknown CDT PM CDT Kushal Gardner MD LAB - BEAKER POCT Performing Organization Address City/State/ZIP Code Phon e Number [place] [address] Care Lab [address] 1[address], Room 20B (ABNORMAL) Hemoglobin A1c (04/22/2021 5:54 PM CDT) Analysis Performed At Patho logist Time Signature Hemoglobin A1C 7.2 (H) 0.0 - 5.6 04/22/2021 LABORATORY % 6:38 PM CDT Comment: Normal <5.7% Prediabetes 5.7-6.4% ?? Diabetes 6.5% or higher Note: Adopted from ADA consensus guideli anna. Specimen Anatomical Collection Method / Collection Time Recei shyla Time (Source) Location / Volume Laterality Blood STRUCTURE OF RIGHT Venipuncture / 04/22/2021 5:54 04/10 6:17 UPPER LIMB / Unknown PM CDT PM CDT Unknown Yasir Altamirano DO LAB - BLOOD ORDERABLES Performing Organization Address City/State/ZIP Code Phon e Number [place] [address] Care Lab [address] 1[address], Room 20B (ABNORMAL) Hemoglobin (04/22/2021 5:54 PM CDT) athologist Signature Hemoglobin 8.2 (L) 13.3 - 17.7 04/22/2021 LABORATORY g/dL 6:20 PM CDT Specimen Anatomical Collection Method / Collection Time Recei shyla Time (Source) Location / Volume Laterality Blood STRUCTURE OF RIGHT Venipuncture / 04/22/2021 5:54 04/10 6:17 UPPER LIMB / Unknown PM CDT PM CDT Unknown Shavon Pisano PA-C LAB - BLOOD ORDERABLES Performing Organization Address City/State/ZIP Code [place] [address] Care Lab [address] 1[address], Room 20B (ABNORMAL) Glucose by meter (04/22/2021 4:46 PM CDT) P athologist Signature GLUCOSE BY 447 (H) 70 - 99 04/22/2021 LABORATORY METER POCT mg/dL 4:53 PM CDT POC Specimen Anatomical Collection Method Collection Time Receive d Time (Source) Location / / Volume Laterality Blood BLOOD SPECIMEN / 04/22/2021 4:46 PM 04/22 4:53 Unknown CDT PM CDT Kushal BORGES - BEAKER POCT Performing Organization Address City/[facility]/ZIP Code Phon e Number LABORATORY [facility] [address] Care Lab [address], Room 20B Transfuse red blood cells (unit) (04/22/2021 2:34 PM CDT) Shavon Pisano PA-C BLOOD TRANSFUSION ORDERABLES Transfuse red blood cells (unit), 1 Units (04/22/2021 2:34 PM CDT) Shavon Pisano PA-C BLOOD TRANSFUSION ORDERABLES (ABNORMAL) Glucose by meter (04/22/2021 1:50 PM CDT) P athologist Signature GLUCOSE BY 415 (H) 70 - 99 04/22/2021 LABORATORY METER POCT mg/dL 1:58 PM CDT POC Specimen Anatomical Collection Method Collection Time Receive d Time (Source) Location / / Volume Laterality Blood BLOOD SPECIMEN / 04/22/2021 1:50 PM 04/22 1:58 Unknown CDT PM CDT Kushal Gardner MD LAB - BEAKER POCT Performing Organization Address City/State/ZIP Code Phon e Number LABORATORY POC [facility] [place] [address] Care Lab [address] floor, Room 20B Prepare red blood cells (unit) (04/22/2021 8:45 AM CDT) [facility] Method Time Signature CROSSMATCH Compatible BLOOD BANK UNIT ABO/RH O Pos BLOOD BANK Unit Number [id number] BLOOD BANK Unit Status Transfused BLOOD BANK Blood Red Blood Cells BLOOD Component Type BANK Product Code [id number] BLOOD BANK CODING SYSTEM [id number] BLOOD BANK UNIT TYPE ISBT 5100 BLOOD BANK ISSUE DATE AND [id number] BLOOD TIME BANK Specimen (Source) Anatomical Collection Method Collection Time Re ceived Time Location / / Volume Laterality 04/22/2021 8:45 AM CDT Provider Unknown BLOOD BANK PRODUCT ORDERABLE S Performing Organization Address City/[facility]/ZIP Code Phon e Number BLOOD BANK [address] [phone] Adult Type and Screen (04/22/2021 7:38 AM CDT) [facility] Method Time Signature ABO/RH(D) O POS 04/22/2021 BLOOD 9:00 AM CDT BANK Antibody Negative Negative 04/22/2021 BLOOD Screen 9:00 AM CDT BANK SPECIMEN [id number] 04/22/2021 BLOOD EXPIRATION 9:00 AM CDT BANK DATE Specimen Anatomical Collection Method / Collection Time Recei shyla Time (Source) Location / Volume Laterality Blood STRUCTURE OF RIGHT Venipuncture / 04/22/2021 7:38 04/10 7:48 UPPER LIMB / Unknown AM CDT AM CDT Unknown Kushal Gardner MD LAB - BLOOD BANK TEST ORDER Performing Organization Address City/State/ZIP Code Phon e Number BLOOD BANK [address] [phone] Phosphorus (04/22/2021 7:38 AM CDT) athologist Signature Phosphorus 2.5 2.5 - 4.5 04/22/2021 LABORATORY mg/dL 8:06 AM CDT Specimen Anatomical Collection Method / Collection Time Recei shyla Time (Source) Location / Volume Laterality Blood STRUCTURE OF RIGHT Venipuncture / 04/22/2021 7:38 04/10 7:48 UPPER LIMB / Unknown AM CDT AM CDT Unknown Yasir Altamirano LAB - BLOOD ORDERABLES Performing Organization Address City/[facility]/ZIP Code Phon e Number [place]ATORY [place] [address] Care Lab [address], Room 20B (ABNORMAL) Magnesium (04/22/2021 7:38 AM CDT) P athologist Signature Magnesium 3.0 (H) 1.6 - 2.3 04/22/2021 LABORATORY mg/dL 8:06 AM CDT Specimen Anatomical Collection Method / Collection Time Recei shyla Time (Source) Location / Volume Laterality Blood STRUCTURE OF RIGHT Venipuncture / 04/22/2021 7:38 04/10 7:48 UPPER LIMB / Unknown AM CDT AM CDT Unknown Yasir Altamirano LAB - BLOOD ORDERABLES Performing Organization Address City/[facility]/ZIP Code Phon e Number [place] [address] Care Lab [address], Room 20B (ABNORMAL) CBC with platelets (04/22/2021 7:38 AM CDT) Patholo gist Method Time Signature WBC Count 12.7 (H) 4.0 - 11.0 04/22/2021 LABORATORY 10e3/uL 8:22 AM CDT RBC Count 2.32 (L) 4.40 - 04/22/2021 LABORATORY 5.90 8:22 AM CDT 10e6/uL Hemoglobin 6.8 (LL) 13.3 - 04/22/2021 LABORATORY 17.7 g/dL 8:22 AM CDT Hematocrit 20.8 (L) 40.0 - 04/22/2021 LABORATORY 53.0 % 8:22 AM CDT MCV 90 78 - 100 04/22/2021 LABORATORY fL 8:22 AM CDT MCH 29.3 26.5 - 04/22/2021 LABORATORY 33.0 pg 8:22 AM CDT MCHC 32.7 31.5 - 04/22/2021 LABORATORY 36.5 g/dL 8:22 AM CDT RDW 13.0 10.0 - 04/22/2021 LABORATORY 15.0 % 8:22 AM CDT Platelet Count 182 150 - 450 04/22/2021 LABORATORY 10e3/uL 8:22 AM CDT Specimen Anatomical Collection Method / Collection Time Recei shyla Time (Source) Location / Volume Laterality Blood STRUCTURE OF RIGHT Venipuncture / 04/22/2021 7:38 04/10 7:48 UPPER LIMB / Unknown AM CDT AM CDT Unknown Shavon Pisano PA-C LAB - BLOOD ORDERABLES Performing Organization Address City/State/ZIP Code [place] [address] [facility] Lab [address] floor, Room 20B (ABNORMAL) Basic metabolic panel (04/22/2021 7:38 AM CDT) [facility] gist Method Time Signature Sodium 141 133 - 144 04/22/2021 LABORATORY mmol/L 8:06 AM CDT Potassium 4.5 3.4 - 5.3 04/22/2021 LABORATORY mmol/L 8:06 AM CDT Chloride 110 (H) 94 - 109 04/22/2021 LABORATORY mmol/L 8:06 AM CDT Carbon Dioxide 30 20 - 32 04/22/2021 LABORATORY (CO2) mmol/L 8:06 AM CDT Anion Gap 1 (L) 3 - 14 04/22/2021 LABORATORY mmol/L 8:06 AM CDT Urea Nitrogen 57 (H) 7 - 30 04/22/2021 LABORATORY mg/dL 8:06 AM CDT Creatinine 1.47 (H) 0.66 - 04/22/2021 LABORATORY 1.25 mg/dL 8:06 AM CDT Calcium 8.1 (L) 8.5 - 10.1 04/22/2021 LABORATORY mg/dL 8:06 AM CDT Glucose 326 (H) 70 - 99 04/22/2021 LABORATORY mg/dL 8:06 AM CDT GFR Estimate 47 (L) >60 04/22/2021 LABORATORY mL/min/1.7 8:06 AM CDT 3m2 Comment: As of February [...] Laterality Blood STRUCTURE OF RIGHT Venipuncture / 04/22/2021 7:38 04/10 7:48 UPPER LIMB / Unknown AM CDT AM CDT Unknown Shavon Pisano PA-C LAB - BLOOD ORDERABLES Performing Organization Address City/State/ZIP Code Phon e Number [place] [address] Care Lab [address] 1[address], Room 20B (ABNORMAL) Glucose by meter (04/22/2021 2:25 AM CDT) P athologist Signature GLUCOSE BY 328 (H) 70 - 99 04/22/2021 LABORATORY METER POCT mg/dL 2:33 AM CDT POC Specimen Anatomical Collection Method Collection Time Receive d Time (Source) Location / / Volume Laterality Blood BLOOD SPECIMEN / 04/22/2021 2:25 AM 04/22 2:33 Unknown CDT AM CDT Kushal Gardner MD LAB - BEAKER POCT Performing Organization Address City/State/ZIP Code Phon e Number LAB[place]ATORY [place] [address] Care Lab [address] 1[address], Room 20B (ABNORMAL) Glucose by meter (04/21/2021 10:47 PM CDT) P athologist Signature GLUCOSE BY 345 (H) 70 - 99 04/21/2021 LABORATORY METER POCT mg/dL 10:54 PM CDT POC Specimen Anatomical Collection Method Collection Time Receive d Time (Source) Location / / Volume Laterality Blood BLOOD SPECIMEN / 04/21/2021 10:47 021 Unknown PM CDT 10:54 PM CDT Kushal Gardner MD LAB - BEAKER POCT Performing Organization Address City/State/ZIP Code Phon e Number LAB[place]ATORY [place] [address] Care Lab [address] 1[address], Room 20B (ABNORMAL) Hemoglobin A1c (04/21/2021 6:38 PM CDT) Analysis Performed At Patho logist Time Signature Hemoglobin A1C 7.3 (H) 0.0 - 5.6 04/21/2021 LABORATORY % 7:09 PM CDT Comment: Normal <5.7% Prediabetes 5.7-6.4% ?? Diabetes 6.5% or higher Note: Adopted from ADA consensus guideli anna. Specimen Anatomical Collection Method / Collection Time Recei shyla Time (Source) Location / Volume Laterality Blood STRUCTURE OF RIGHT Venipuncture / 04/21/2021 6:38 04/10 6:40 UPPER LIMB / Unknown PM CDT PM CDT Unknown Yasir Altamirano DO LAB - BLOOD ORDERABLES Performing Organization Address City/[facility]/ZIP Code Phon e Number [place] [address] [phone] Care Lab [address] 1[address], Room 20B (ABNORMAL) Glucose by meter (04/21/2021 6:09 PM CDT) P athologist Signature GLUCOSE BY 425 (H) 70 - 99 04/21/2021 LABORATORY METER POCT mg/dL 6:15 PM CDT POC Specimen Anatomical Collection Method Collection Time Receive d Time (Source) Location / / Volume Laterality Blood BLOOD SPECIMEN / 04/21/2021 6:09 PM 04/21 6:15 Unknown CDT PM CDT Kushal BORGES - BEAKER POCT Performing Organization Address City/State/ZIP Code Phon e Number LAB[place]ATORY [place] [phone] Care Lab [address] 1[address], Room 20B (ABNORMAL) Glucose by meter (04/21/2021 5:41 PM CDT) P athologist Signature GLUCOSE BY 393 (H) 70 - 99 04/21/2021 LABORATORY METER POCT mg/dL 5:48 PM CDT POC Specimen Anatomical Collection Method Collection Time Receive d Time (Source) Location / / Volume Laterality Blood BLOOD SPECIMEN / 04/21/2021 5:41 PM 04/21 5:48 Unknown CDT PM CDT Kushal Gardner MD LAB - BEAKER POCT Performing Organization Address City/State/ZIP Code Phon e Number LAB[place]ATORY [place] [address] Care Lab [address] 1[address], Room 20B (ABNORMAL) Glucose by meter (04/21/2021 12:32 PM CDT) athologist Signature GLUCOSE BY 275 (H) 70 - 99 04/21/2021 LABORATORY METER POCT mg/dL 12:39 PM CDT POC Specimen Anatomical Collection Method Collection Time Receive d Time (Source) Location / / Volume Laterality Blood BLOOD SPECIMEN / 04/21/2021 12:32 021 Unknown PM CDT 12:39 PM CDT Kushal Gardner MD LAB - BEAKER POCT Performing Organization Address City/State/ZIP Code Phon e Number LAB[place]ATORY [place] [address] Care Lab [address] 1[address], Room 20B (ABNORMAL) Hemoglobin A1c (04/21/2021 11:57 AM CDT) Analysis Performed At Patho logist Time Signature Hemoglobin A1C 7.2 (H) 0.0 - 5.6 04/21/2021 LABORATORY % 12:42 PM CDT Comment: Normal <5.7% Prediabetes 5.7-6.4% ?? Diabetes 6.5% or higher Note: Adopted from ADA consensus guideli an[place]. Specimen Anatomical Collection Method / Collection Time Recei shyla Time (Source) Location / Volume Laterality Blood STRUCTURE OF RIGHT Venipuncture / 04/21/2021 11:57 07/2021 UPPER LIMB / Unknown AM CDT 12:03 PM CDT Unknown Yasir Altamirano DO LAB - BLOOD ORDERABLES Performing Organization Address City/State/ZIP Code Phon e Number [place] [address] [facility] Lab [address] floor, Room 20B (ABNORMAL) CBC with platelets (04/21/2021 11:57 AM CDT) [facility] Method Time Signature WBC Count 13.1 (H) 4.0 - 11.0 04/21/2021 LABORATORY 10e3/uL 12:07 PM CDT RBC Count 2.45 (L) 4.40 - 04/21/2021 LABORATORY 5.90 12:07 PM CDT 10e6/uL Hemoglobin 7.3 (L) 13.3 - 04/21/2021 LABORATORY 17.7 g/dL 12:07 PM CDT Hematocrit 22.5 (L) 40.0 - 04/21/2021 LABORATORY 53.0 % 12:07 PM CDT MCV 92 78 - 100 04/21/2021 LABORATORY fL 12:07 PM CDT MCH 29.8 26.5 - 04/21/2021 LABORATORY 33.0 pg 12:07 PM CDT MCHC 32.4 31.5 - 04/21/2021 LABORATORY 36.5 g/dL 12:07 PM CDT RDW 13.1 10.0 - 04/21/2021 LABORATORY 15.0 % 12:07 PM CDT Platelet Count 154 150 - 450 04/21/2021 LABORATORY 10e3/uL 12:07 PM CDT Specimen Anatomical Collection Method / Collection Time Recei shyla Time (Source) Location / Volume Laterality Blood STRUCTURE OF RIGHT Venipuncture / 04/21/2021 11:57 07/2021 UPPER LIMB / Unknown AM CDT 12:03 PM CDT Unknown Shavon Pisano PA-C LAB - BLOOD ORDERABLES Performing Organization Address City/State/ZIP Code Phon e Number [place] [address] [facility] Lab [address] 1st floor, Room 20B (ABNORMAL) Arterial Panel POCT (Lab Only) (04/21/2021 11:39 AM CDT) [facility] Method Time Signature pH Arterial POCT 7.32 (L) 7.35 - 04/23/2021 LABORATOR Y 7.45 4:54 PM CDT POC pCO2 Arterial 52 (H) 35 - 45 04/23/2021 LABORATORY POCT mm Hg 4:54 PM CDT POC pO2 Arterial 310 (H) 80 - 105 04/23/2021 LABORATORY POCT mm Hg 4:54 PM CDT POC Bicarbonate 27 21 - 28 04/23/2021 LABORATORY Arterial POCT mmol/L 4:54 PM CDT POC Sodium POCT 142 133 - 144 04/23/2021 LABORATORY mmol/L 4:54 PM CDT POC Potassium POCT 4.9 3.5 - 5.0 04/23/2021 LABORATORY mmol/L 4:54 PM CDT POC Hemoglobin POCT 7.6 (L) 13.3 - 04/23/2021 LABORATORY 17.7 g/dL 4:54 PM CDT POC Glucose Whole 187 (H) 70 - 99 04/23/2021 LABORATORY Blood POCT mg/dL 4:54 PM CDT POC Calcium, Ionized 4.1 (L) 4.4 - 5.2 04/23/2021 LABORATOR Y Whole Blood POCT mg/dL 4:54 PM CDT POC Base 0.7 -9.6 - 04/23/2021 LABORATORY Excess/Deficit 2.0 4:54 PM CDT POC (+/-) POCT mmol/L FIO2 POCT 80.0 % 04/23/2021 LABORATORY 4:54 PM CDT POC Lactic Acid POCT 1.4 <=2.0 04/23/2021 LABORATOR Y mmol/L 4:54 PM CDT POC Specimen Anatomical Collection Method Collection Time Receive d Time (Source) Location / / Volume Laterality Blood, arterial BLOOD SPECIMEN / 04/21/2021 11:39 0911/2020 7:59 Unknown AM CDT AM CDT Kushal BORGES - NADER POCT Performing Organization Address City/State/ZIP Code Phon e Number LAB[place]ATORY [place] [address] Care Lab [address] 1[address], Room 20B (ABNORMAL) Ferritin (04/21/2021 8:05 AM CDT) athologist Signature Ferritin 982 (H) 26 - 388 04/21/2021 LABORATORY ng/mL 10:46 AM CDT Specimen Anatomical Collection Method / Collection Time Recei shyla Time (Source) Location / Volume Laterality Blood STRUCTURE OF RIGHT Venipuncture / 04/21/2021 8:05 04/10 8:50 UPPER LIMB / Unknown AM CDT AM CDT Unknown Yasir Altamirano DO LAB - BLOOD ORDERABLES Performing Organization Address City/[facility]/ZIP Code Phon e [place] [address] Care Lab [address] 1[address], Room 20B (ABNORMAL) Iron and iron binding capacity (04/21/2021 8:05 AM CDT) athologist Signature Iron 19 (L) 35 - 180 04/21/2021 LABORATORY ug/dL 10:26 AM CDT Iron Binding 129 (L) 240 - 430 04/21/2021 LABORATORY Capacity ug/dL 10:26 AM CDT Iron Sat Index 15 15 - 46 % 04/21/2021 LABORATORY 10:26 AM CDT Specimen Anatomical Collection Method / Collection Time Recei shyla Time (Source) Location / Volume Laterality Blood STRUCTURE OF RIGHT Venipuncture / 04/21/2021 8:05 04/10 8:50 UPPER LIMB / Unknown AM CDT AM CDT Unknown Yasir Altamirano DO LAB - BLOOD ORDERABLES Performing Organization Address City/State/ZIP Code Phon e Number [place] [address] Care Lab [address] 1[address], Room 20B (ABNORMAL) CBC with platelets (04/21/2021 8:05 AM CDT) [facility] Method Time Signature WBC Count 12.6 (H) 4.0 - 11.0 04/21/2021 LABORATORY 10e3/uL 8:55 AM CDT RBC Count 2.39 (L) 4.40 - 04/21/2021 LABORATORY 5.90 8:55 AM CDT 10e6/uL Hemoglobin 7.0 (L) 13.3 - 04/21/2021 LABORATORY 17.7 g/dL 8:55 AM CDT Hematocrit 22.1 (L) 40.0 - 04/21/2021 LABORATORY 53.0 % 8:55 AM CDT MCV 93 78 - 100 04/21/2021 LABORATORY fL 8:55 AM CDT MCH 29.3 26.5 - 04/21/2021 LABORATORY 33.0 pg 8:55 AM CDT MCHC 31.7 31.5 - 04/21/2021 LABORATORY 36.5 g/dL 8:55 AM CDT RDW 13.3 10.0 - 04/21/2021 LABORATORY 15.0 % 8:55 AM CDT Platelet Count 158 150 - 450 04/21/2021 LABORATORY 10e3/uL 8:55 AM CDT Specimen Anatomical Collection Method / Collection Time Recei shyla Time (Source) Location / Volume Laterality Blood STRUCTURE OF RIGHT Venipuncture / 04/21/2021 8:05 04/10 8:50 UPPER LIMB / Unknown AM CDT AM CDT Unknown Shavon Pisano PA-C LAB - BLOOD ORDERABLES Performing Organization Address City/State/ZIP Code [place] [address] Care Lab [address] 1[address], Room 20B (ABNORMAL) Basic metabolic panel (04/21/2021 8:05 AM CDT) [facility] Method Time Signature Sodium 140 133 - 144 04/21/2021 LABORATORY mmol/L 9:21 AM CDT Potassium 4.4 3.4 - 5.3 04/21/2021 LABORATORY mmol/L 9:21 AM CDT Chloride 109 94 - 109 04/21/2021 LABORATORY mmol/L 9:21 AM CDT Carbon Dioxide 24 20 - 32 04/21/2021 LABORATORY (CO2) mmol/L 9:21 AM CDT Anion Gap 7 3 - 14 04/21/2021 LABORATORY mmol/L 9:21 AM CDT Urea Nitrogen 42 (H) 7 - 30 04/21/2021 LABORATORY mg/dL 9:21 AM CDT Creatinine 1.71 (H) 0.66 - 04/21/2021 LABORATORY 1.25 mg/dL 9:21 AM CDT Calcium 7.8 (L) 8.5 - 10.1 04/21/2021 LABORATORY mg/dL 9:21 AM CDT Glucose 205 (H) 70 - 99 04/21/2021 LABORATORY mg/dL 9:21 AM CDT GFR Estimate 39 (L) >60 04/21/2021 LABORATORY mL/min/1.7 9:21 AM CDT 3m2 Comment: As of February [...] Laterality Blood STRUCTURE OF RIGHT Venipuncture / 04/21/2021 8:05 04/10 8:50 UPPER LIMB / Unknown AM CDT AM CDT Unknown Shavon Pisano PA-C LAB - BLOOD ORDERABLES Performing Organization Address City/State/ZIP Code [place] [address] [facility] Lab [address] 1[address], Room 20B (ABNORMAL) Glucose by meter (04/21/2021 8:01 AM CDT) P athologist Signature GLUCOSE BY 202 (H) 70 - 99 04/21/2021 LABORATORY METER POCT mg/dL 8:08 AM CDT POC Specimen Anatomical Collection Method Collection Time Receive d Time (Source) Location / / Volume Laterality Blood BLOOD SPECIMEN / 04/21/2021 8:01 AM 04/21 8:08 Unknown CDT AM CDT Kushal Gardner MD LAB - BESTALIN POCT Performing Organization Address City/[facility]/ZIP Code Phon e Number LAB[place]ATORY [place] [address] Care Lab [address] 1[address], Room 20B (ABNORMAL) Glucose by meter (04/21/2021 5:23 AM CDT) P athologist Signature GLUCOSE BY 164 (H) 70 - 99 04/21/2021 SH LABORATORY METER POCT mg/dL 5:30 AM CDT POC Specimen Anatomical Collection Method Collection Time Receive d Time (Source) Location / / Volume Laterality Blood BLOOD SPECIMEN / 04/21/2021 5:23 AM 04/21 5:30 Unknown CDT AM CDT Kushal BORGES - NADER POCT Performing Organization Address [facility]/ZIP Code Phon e Number LAB[place]ATORY [place] [address] Care Lab [address] 1[address], Room 20B Glucose by meter (04/21/2021 2:09 AM CDT) P athologist Signature GLUCOSE BY 99 70 - 99 04/21/2021 LABORATORY METER POCT mg/dL 2:16 AM CDT POC Specimen Anatomical Collection Method Collection Time Receive d Time (Source) Location / / Volume Laterality Blood BLOOD SPECIMEN / 04/21/2021 2:09 AM 04/21 2:16 Unknown CDT AM CDT Kushal BORGES - BESTALIN POCT Performing Organization Address City/State/ZIP Code Phon e Number LAB[place]ATORY [place] [address] Care Lab [address] 1[address], Room 20B (ABNORMAL) Glucose by meter (04/21/2021 12:10 AM CDT) P athologist Signature GLUCOSE BY 107 (H) 70 - 99 04/21/2021 SH LABORATORY METER POCT mg/dL 12:16 AM CDT POC Specimen Anatomical Collection Method Collection Time Receive d Time (Source) Location / / Volume Laterality Blood BLOOD SPECIMEN / 04/21/2021 12:10 021 Unknown AM CDT 12:16 AM CDT Kushal BORGES - NADER POCT Performing Organization Address City/[facility]/ZIP Code Phon e Number LAB[place]ATORY [place] [address] Care Lab [address] 1[address], Room 20B (ABNORMAL) Glucose by meter (04/20/2021 10:07 PM CDT) P athologist Signature GLUCOSE BY 142 (H) 70 - 99 04/20/2021 LABORATORY METER POCT mg/dL 10:14 PM CDT POC Specimen Anatomical Collection Method Collection Time Receive d Time (Source) Location / / Volume Laterality Blood BLOOD SPECIMEN / 04/20/2021 10:07 021 Unknown PM CDT 10:14 PM CDT Kushal DOE POCT Performing Organization Address City/State/ZIP Code Phon e Number LAB[place]ATORY [place] [address] Care Lab [address] 1[address], Room 20B (ABNORMAL) Glucose by meter (04/20/2021 8:06 PM CDT) P athologist Signature GLUCOSE BY 139 (H) 70 - 99 04/20/2021 LABORATORY METER POCT mg/dL 8:12 PM CDT POC Specimen Anatomical Collection Method Collection Time Receive d Time (Source) Location / / Volume Laterality Blood BLOOD SPECIMEN / 04/20/2021 8:06 PM 04/20 8:12 Unknown CDT PM CDT Kushal DOE POCT Performing Organization Address City/[facility]/ZIP Code Phon e Number LAB[place]ATORY [place] [address] Care Lab [address] 1[address], Room 20B (ABNORMAL) Glucose by meter (04/20/2021 6:23 PM CDT) P athologist Signature GLUCOSE BY 121 (H) 70 - 99 04/20/2021 LABORATORY METER POCT mg/dL 6:30 PM CDT POC Specimen Anatomical Collection Method Collection Time Receive d Time (Source) Location / / Volume Laterality Blood BLOOD SPECIMEN / 04/20/2021 6:23 PM 04/20 6:30 Unknown CDT PM CDT Kushal BORGES - NADER POCT Performing Organization Address City/State/ZIP Code Phon e Number LABORATORY [place] [facility] [address] Care Lab [address] 1[address], Room 20B (ABNORMAL) Glucose by meter (04/20/2021 4:03 PM CDT) P athologist Signature GLUCOSE BY 124 (H) 70 - 99 04/20/2021 LABORATORY METER POCT mg/dL 4:14 PM CDT POC Specimen Anatomical Collection Method Collection Time Receive d Time (Source) Location / / Volume Laterality Blood BLOOD SPECIMEN / 04/20/2021 4:03 PM 04/20 4:14 Unknown CDT PM CDT Kushal BORGES - NADER POCT Performing Organization Address City/State/ZIP Code Phon e Number LABORATORY [place] [address] Care Lab [address] 1[address], Room 20B (ABNORMAL) Glucose by meter (04/20/2021 2:02 PM CDT) P athologist Signature GLUCOSE BY 141 (H) 70 - 99 04/20/2021 LABORATORY METER POCT mg/dL 2:09 PM CDT POC Specimen Anatomical Collection Method Collection Time Receive d Time (Source) Location / / Volume Laterality Blood BLOOD SPECIMEN / 04/20/2021 2:02 PM 04/20 2:09 Unknown CDT PM CDT Kushal DOE POCT Performing Organization Address City/State/ZIP Code Phon e Number LABORATORY [place] [address] Care Lab [address] 1[address], Room 20B (ABNORMAL) Glucose by meter (04/20/2021 12:26 PM CDT) P athologist Signature GLUCOSE BY 119 (H) 70 - 99 04/20/2021 LABORATORY METER POCT mg/dL 12:33 PM CDT POC Specimen Anatomical Collection Method Collection Time Receive d Time (Source) Location / / Volume Laterality Blood BLOOD SPECIMEN / 04/20/2021 12:26 021 Unknown PM CDT 12:33 PM CDT Kushal Gardner MD LAB - BEAKER POCT Performing Organization Address City/State/ZIP Code Phon e Number LAB[place]ATORY [place] [address] Care Lab [address] 1[address], Room 20B (ABNORMAL) Glucose by meter (04/20/2021 10:10 AM CDT) P athologist Signature GLUCOSE BY 126 (H) 70 - 99 04/20/2021 LABORATORY METER POCT mg/dL 10:17 AM CDT POC Specimen Anatomical Collection Method Collection Time Receive d Time (Source) Location / / Volume Laterality Blood BLOOD SPECIMEN / 04/20/2021 10:10 021 Unknown AM CDT 10:17 AM CDT Kushal BORGES - BEAKER POCT Performing Organization Address City/State/ZIP Code Phon e Number LAB[place]ATORY [place] [address] Care Lab [address] 1[address], Room 20B (ABNORMAL) Glucose by meter (04/20/2021 8:04 AM CDT) P athologist Signature GLUCOSE BY 132 (H) 70 - 99 04/20/2021 LABORATORY METER POCT mg/dL 8:10 AM CDT POC Specimen Anatomical Collection Method Collection Time Receive d Time (Source) Location / / Volume Laterality Blood BLOOD SPECIMEN / 04/20/2021 8:04 AM 04/20 8:10 Unknown CDT AM CDT Kushal BORGES - NADER POCT Performing Organization Address City/State/ZIP Code Phon e Number LAB[place]ATORY [place] [address] Care Lab [address] 1[address], Room [address]B EKG 12-lead, tracing only (04/20/2021 7:43 AM CDT) Patholo gist Method Time Signature Systolic Blood mmHg RADIOLOGY Pressure RESULTS Diastolic Blood mmHg RADIOLOGY Pressure RESULTS Ventricular Rate 70 BPM RADIOLOGY RESULTS Atrial Rate 70 BPM RADIOLOGY RESULTS LA Interval 140 ms RADIOLOGY RESULTS QRS Duration 106 ms RADIOLOGY RESULTS QT 406 ms RADIOLOGY RESULTS QTc 438 ms RADIOLOGY RESULTS P Beverly 17 degrees RADIOLOGY RESULTS R AXIS 6 degrees RADIOLOGY RESULTS T Beverly 49 degrees RADIOLOGY RESULTS Interpretation Sinus rhythm RADIOLOGY ECG Normal ECG RESULTS When compared with ECG of 19-APR-2021 13:46, (unconfirmed) ST elevation now present in Lateral leads Confirmed by MD JESSICA, S TUAN ([id number]), avid editor Martinez Mcgregor ([id number]) on 04/23/2021 8:02:02 AM Specimen Anatomical Collection Method Collection Time Receive d Time (Source) Location / / Volume Laterality 04/20/2021 7:43 AM 8:02 CDT AM CDT Lucio Black MD ECG ORDERABLES Performing Organization Address City/[facility]/ZIP Code Phon e Number RADIOLOGY RESULTS (ABNORMAL) Glucose by meter (04/20/2021 6:57 AM CDT) athologist Signature GLUCOSE BY 141 (H) 70 - 99 04/20/2021 LABORATORY METER POCT mg/dL 7:03 AM CDT POC Specimen Anatomical Collection Method Collection Time Receive d Time (Source) Location / / Volume Laterality Blood BLOOD SPECIMEN / 04/20/2021 6:57 AM 04/20 7:03 Unknown CDT AM CDT Kushal BORGES - NADER POCT Performing Organization Address City/State/ZIP Code Phon e Number LAB[place]ATORY [place] [address] Care Lab [address] 1[address], Room 20B XR Chest Port 1 View (04/20/2021 6:20 AM CDT) Anatomical Region Laterality Modality Chest Digital Radiography Specimen (Source) Anatomical Collection Method Collection Time Re ceived Time Location / / Volume Laterality 04/20/2021 6:09 AM CDT Impressions 04/20/2021 6:55 AM CDT IMPRESSION: No pneumothorax. Narrative 04/20/2021 6:55 AM CDT EXAM: XR CHEST PORT 1 VIEW LOCATION: [facility] DATE/TIME: 04/20/2021 6:09 AM INDICATION: Post Op CVTS Surgery COMPARISON: 04/19/2021. FINDINGS: Sternal wires and mediastinal clips. Right IJ central venous catheter. Mediastinal drain and left chest tube. No pneumothorax. The heart is at the upper limits normal in size. There is no pulm onary edema. Persistent left basilar inf iltrate. The upper lungs are clear. Procedure Note Michael Hooks MD - 04/20/2021Form atting of this note might be different from the original. EXAM: XR CHEST PORT 1 VIEW LOCATION: [facility] DATE/TIME: 04/20/2021 6:09 AM INDICATION: Post Op CVTS Surgery COMPARISON: 04/19/2021. FINDINGS: Sternal wires and mediastinal clips. Right IJ central venous catheter. Mediastinal drain and left chest tube. No pneumothorax. The heart is at the upper limits normal in size. There is no pulmonary edema. Persistent left basilar infiltrate. The upper lungs are clear. IMPRESSION: No pneumothorax. Lucio Black MD IMG DIAGNOSTIC IMAGING ORDER [place] (ABNORMAL) Calcium ionized whole blood (04/20/2021 4:43 AM CDT) athologist Signature Calcium 4.2 (L) 4.4 - 5.2 04/20/2021 LABORATORY Ionized mg/dL 4:51 AM CDT Specimen Anatomical Collection Method Collection Time Receive d Time (Source) Location / / Volume Laterality Blood ARTERIAL LINE / VAD(CVC, PICC) / 04/20/2021 4:43 AM 4:48 Unknown Unknown CDT AM CDT Lucio Black MD LAB - BLOOD ORDERABLES Performing Organization Address City/State/ZIP Code Phon e Number [place]ATORY [place] [address] [facility] [place] Lab [address] Black 1st floor, Room 20B (ABNORMAL) Basic metabolic panel (04/20/2021 4:42 AM CDT) [facility] Method Time Signature Sodium 142 133 - 144 04/20/2021 LABORATORY mmol/L 5:06 AM CDT Potassium 4.5 3.4 - 5.3 04/20/2021 LABORATORY mmol/L 5:06 AM CDT Chloride 112 (H) 94 - 109 04/20/2021 LABORATORY mmol/L 5:06 AM CDT Carbon Dioxide 26 20 - 32 04/20/2021 LABORATORY (CO2) mmol/L 5:06 AM CDT Anion Gap 4 3 - 14 04/20/2021 LABORATORY mmol/L 5:06 AM CDT Urea Nitrogen 33 (H) 7 - 30 04/20/2021 LABORATORY mg/dL 5:06 AM CDT Creatinine 1.42 (H) 0.66 - 04/20/2021 LABORATORY 1.25 mg/dL 5:06 AM CDT Calcium 7.3 (L) 8.5 - 10.1 04/20/2021 LABORATORY mg/dL 5:06 AM CDT Glucose 131 (H) 70 - 99 04/20/2021 LABORATORY mg/dL 5:06 AM CDT GFR Estimate 49 (L) >60 04/20/2021 LABORATORY mL/min/1.7 5:06 AM CDT 3m2 Comment: As of February 17, 2021, eGFR is ca lculated by the CKD-EPI creatinine equation, without race adjustment. eGFR can be inf luenced by muscle mass, exercise, and diet. The reported eGFR is an estimation only and is only applicable if the renal function is stable. Specimen Anatomical Collection Method Collection Time Receive d Time (Source) Location / / Volume Laterality Blood ARTERIAL LINE / VAD(CVC, PICC) / 04/20/2021 4:42 AM 4:47 Unknown Unknown CDT AM CDT Lucio Black MD LAB - BLOOD ORDERABLES Performing Organization Address City/State/ZIP Code Phon e Number [place] [address] [phone] Care Lab [address], Room [address] Phosphorus (04/20/2021 4:42 AM CDT) athologist Signature Phosphorus 4.5 2.5 - 4.5 04/20/2021 LABORATORY mg/dL 5:06 AM CDT Specimen Anatomical Collection Method Collection Time Receive d Time (Source) Location / / Volume Laterality Blood ARTERIAL LINE / VAD(CVC, PICC) / 04/20/2021 4:42 AM 4:47 Unknown Unknown CDT AM CDT Lucio Black MD LAB - BLOOD ORDERABLES Performing Organization Address City/State/ZIP Code Phon e Number [place] [address] Care Lab [address], Room [address]B Magnesium (04/20/2021 4:42 AM CDT) athologist Signature Magnesium 2.3 1.6 - 2.3 04/20/2021 LABORATORY mg/dL 5:06 AM CDT Specimen Anatomical Collection Method Collection Time Receive d Time (Source) Location / / Volume Laterality Blood ARTERIAL LINE / VAD(CVC, PICC) / 04/20/2021 4:42 AM 4:47 Unknown Unknown CDT AM CDT Lucio Black MD LAB - BLOOD ORDERABLES Performing Organization Address City/State/ZIP Code Phon e Number [place] [address] Care Lab [address] 1[address], Room [address]B (ABNORMAL) CBC with platelets (04/20/2021 4:42 AM CDT) [facility] gist Method Time Signature WBC Count 10.2 4.0 - 11.0 04/20/2021 LABORATORY 10e3/uL 4:50 AM CDT RBC Count 2.47 (L) 4.40 - 04/20/2021 LABORATORY 5.90 4:50 AM CDT 10e6/uL Hemoglobin 7.2 (L) 13.3 - 04/20/2021 LABORATORY 17.7 g/dL 4:50 AM CDT Hematocrit 22.3 (L) 40.0 - 04/20/2021 LABORATORY 53.0 % 4:50 AM CDT MCV 90 78 - 100 04/20/2021 LABORATORY fL 4:50 AM CDT MCH 29.1 26.5 - 04/20/2021 LABORATORY 33.0 pg 4:50 AM CDT MCHC 32.3 31.5 - 04/20/2021 LABORATORY 36.5 g/dL 4:50 AM CDT RDW 12.8 10.0 - 04/20/2021 LABORATORY 15.0 % 4:50 AM CDT Platelet Count 121 (L) 150 - 450 04/20/2021 LABORATORY 10e3/uL 4:50 AM CDT Specimen Anatomical Collection Method Collection Time Receive d Time (Source) Location / / Volume Laterality Blood ARTERIAL LINE / VAD(CVC, PICC) / 04/20/2021 4:42 AM 4:47 Unknown Unknown CDT AM CDT Lucio Black MD LAB - BLOOD ORDERABLES Performing Organization Address City/State/ZIP Code Phon e Number [place] [address] [phone] Care Lab [address] 1[address], Room [address]B (ABNORMAL) Glucose by meter (04/20/2021 4:10 AM CDT) P athologist Signature GLUCOSE BY 133 (H) 70 - 99 04/20/2021 LABORATORY METER POCT mg/dL 4:18 AM CDT POC Specimen Anatomical Collection Method Collection Time Receive d Time (Source) Location / / Volume Laterality Blood BLOOD SPECIMEN / 04/20/2021 4:10 AM 04/20 4:18 Unknown CDT AM CDT Kushal Gardner MD LAB - BEAKER POCT Performing Organization Address City/State/ZIP Code Phon e Number LAB[place]ATORY [place] [address] Care Lab [address] 1[address], Room 20B (ABNORMAL) Glucose by meter (04/20/2021 2:24 AM CDT) P athologist Signature GLUCOSE BY 123 (H) 70 - 99 04/20/2021 LABORATORY METER POCT mg/dL 2:30 AM CDT POC Specimen Anatomical Collection Method Collection Time Receive d Time (Source) Location / / Volume Laterality Blood BLOOD SPECIMEN / 04/20/2021 2:24 AM 04/20 2:30 Unknown CDT AM CDT Kushal BORGES - NADER POCT Performing Organization Address City/State/ZIP Code Phon e Number LAB[place]ATORY [place] [address] Care Lab [address] 1[address], Room [address]B (ABNORMAL) Glucose by meter (04/20/2021 1:05 AM CDT) athologist Signature GLUCOSE BY 111 (H) 70 - 99 04/20/2021 LABORATORY METER POCT mg/dL 1:12 AM CDT POC Specimen Anatomical Collection Method Collection Time Receive d Time (Source) Location / / Volume Laterality Blood BLOOD SPECIMEN / 04/20/2021 1:05 AM 04/20 1:12 Unknown CDT AM CDT Kushal BORGES - NADER POCT Performing Organization Address City/State/ZIP Code Phon e Number LAB[place]ATORY [place] [address] Care Lab [address] 1[address], Room [address]B (ABNORMAL) Comprehensive metabolic panel (04/20/2021 12:09 AM CDT) [facility] Method Time Signature Sodium 144 133 - 144 04/20/2021 LABORATORY mmol/L 12:34 AM CDT Potassium 4.2 3.4 - 5.3 04/20/2021 LABORATORY mmol/L 12:34 AM CDT Chloride 114 (H) 94 - 109 04/20/2021 LABORATORY mmol/L 12:34 AM CDT Carbon Dioxide 27 20 - 32 04/20/2021 LABORATORY (CO2) mmol/L 12:34 AM CDT Anion Gap 3 3 - 14 04/20/2021 LABORATORY mmol/L 12:34 AM CDT Urea Nitrogen 32 (H) 7 - 30 04/20/2021 LABORATORY mg/dL 12:34 AM CDT Creatinine 1.32 (H) 0.66 - 04/20/2021 LABORATORY 1.25 12:34 AM CDT mg/dL Calcium 7.5 (L) 8.5 - 04/20/2021 LABORATORY 10.1 12:34 AM CDT mg/dL Glucose 111 (H) 70 - 99 04/20/2021 LABORATORY mg/dL 12:34 AM CDT Alkaline 29 (L) 40 - 150 04/20/2021 LABORATORY Phosphatase U/L 12:34 AM CDT AST 42 0 - 45 04/20/2021 LABORATORY U/L 12:34 AM CDT ALT 22 0 - 70 04/20/2021 LABORATORY U/L 12:34 AM CDT Protein Total 5.8 (L) 6.8 - 8.8 04/20/2021 LABORATORY g/dL 12:34 AM CDT Albumin 3.3 (L) 3.4 - 5.0 04/20/2021 LABORATORY g/dL 12:34 AM CDT Bilirubin Total 0.2 0.2 - 1.3 04/20/2021 LABORATORY mg/dL 12:34 AM CDT GFR Estimate 54 (L) >60 04/20/2021 LABORATORY mL/min/1. 12:34 AM CDT 73m2 Comment: As of February 17, 2021, eGFR is ca lculated by the CKD-EPI creatinine equation, without race adjustment. eGFR can be inf luenced by muscle mass, exercise, and diet. The reported eGFR is an estimation only and is only applicable if the renal function is stable. Specimen Anatomical Collection Method Collection Time Receive d Time (Source) Location / / Volume Laterality Blood ARTERIAL LINE / VAD(CVC, PICC) / 04/20/2021 12:09 04/10 Unknown Unknown AM CDT 12:12 AM CDT Lucio Black MD LAB - BLOOD ORDERABLES Performing Organization Address City/State/ZIP Code Phon e Number [place] [address] [phone] Care Lab [address] 1[address], Room 20B (ABNORMAL) Glucose by meter (04/20/2021 12:04 AM CDT) P athologist Signature GLUCOSE BY 119 (H) 70 - 99 04/20/2021 LABORATORY METER POCT mg/dL 12:14 AM CDT POC Specimen Anatomical Collection Method Collection Time Receive d Time (Source) Location / / Volume Laterality Blood BLOOD SPECIMEN / 04/20/2021 12:04 021 Unknown AM CDT 12:14 AM CDT Kushal Gardner MD LAB - BEAKER POCT Performing Organization Address City/State/ZIP Code Phon e Number LAB[place]ATORY [place] [address] Care Lab [address] 1[address], Room 20B (ABNORMAL) Glucose by meter (04/19/2021 10:21 PM CDT) P athologist Signature GLUCOSE BY 127 (H) 70 - 99 04/19/2021 LABORATORY METER POCT mg/dL 10:28 PM CDT POC Specimen Anatomical Collection Method Collection Time Receive d Time (Source) Location / / Volume Laterality Blood BLOOD SPECIMEN / 04/19/2021 10:21 021 Unknown PM CDT 10:28 PM CDT Kushal BORGES - BESTALIN POCT Performing Organization Address City/State/ZIP Code Phon e Number LAB[place]ATORY [place] [address] Care Lab [address] 1[address], Room 20B (ABNORMAL) Glucose by meter (04/19/2021 9:00 PM CDT) P athologist Signature GLUCOSE BY 160 (H) 70 - 99 04/19/2021 LABORATORY METER POCT mg/dL 9:06 PM CDT POC Specimen Anatomical Collection Method Collection Time Receive d Time (Source) Location / / Volume Laterality Blood BLOOD SPECIMEN / 04/19/2021 9:00 PM 04/19 9:06 Unknown CDT PM CDT Kushal BORGES - BESTALIN POCT Performing Organization Address City/State/ZIP Code Phon e Number LAB[place]ATORY [place] [address] Care Lab [address] 1[address], Room 20B (ABNORMAL) Glucose by meter (04/19/2021 8:12 PM CDT) P athologist Signature GLUCOSE BY 155 (H) 70 - 99 04/19/2021 LABORATORY METER POCT mg/dL 8:21 PM CDT POC Specimen Anatomical Collection Method Collection Time Receive d Time (Source) Location / / Volume Laterality Blood BLOOD SPECIMEN / 04/19/2021 8:12 PM 04/19 8:21 Unknown CDT PM CDT Kushal DOE POCT Performing Organization Address City/[facility]/ZIP Code Phon e Number LAB[place]ATORY [place] [address] Care Lab [address] 1[address], Room 20B (ABNORMAL) Glucose by meter (04/19/2021 7:00 PM CDT) P athologist Signature GLUCOSE BY 167 (H) 70 - 99 04/19/2021 LABORATORY METER POCT mg/dL 7:06 PM CDT POC Specimen Anatomical Collection Method Collection Time Receive d Time (Source) Location / / Volume Laterality Blood BLOOD SPECIMEN / 04/19/2021 7:00 PM 04/19 7:06 Unknown CDT PM CDT Kushal DOE POCT Performing Organization Address City/State/ZIP Code Phon e Number LAB[place]ATORY [place] [address] Care Lab [address] 1[address], Room 20B (ABNORMAL) Glucose by meter (04/19/2021 6:26 PM CDT) P athologist Signature GLUCOSE BY 164 (H) 70 - 99 04/19/2021 LABORATORY METER POCT mg/dL 6:34 PM CDT POC Specimen Anatomical Collection Method Collection Time Receive d Time (Source) Location / / Volume Laterality Blood BLOOD SPECIMEN / 04/19/2021 6:26 PM 04/19 6:34 Unknown CDT PM CDT Kushal Gardner MD LAB - BEAKER POCT Performing Organization Address City/State/ZIP Code Phon e Number LAB[place]ATORY [place] [address] Care Lab [address] 1[address], Room 20B (ABNORMAL) Glucose by meter (04/19/2021 4:58 PM CDT) P athologist Signature GLUCOSE BY 166 (H) 70 - 99 04/19/2021 LABORATORY METER POCT mg/dL 5:04 PM CDT POC Specimen Anatomical Collection Method Collection Time Receive d Time (Source) Location / / Volume Laterality Blood BLOOD SPECIMEN / 04/19/2021 4:58 PM 04/19 5:04 Unknown CDT PM CDT Kushal Gardner MD LAB - BEAKER POCT Performing Organization Address City/State/ZIP Code Phon e Number LAB[place]ATORY [place] [address] Care Lab [address] 1[address], Room 20B (ABNORMAL) Blood gas arterial and oxyhgb (04/19/2021 4:58 PM CDT) Patholo gist Method Time Signature pH Arterial 7.28 (L) 7.35 - 04/19/2021 LABORATORY 7.45 5:28 PM CDT pCO2 Arterial 53 (H) 35 - 45 04/19/2021 LABORATORY mm Hg 5:28 PM CDT pO2 Arterial 165 (H) 80 - 105 04/19/2021 LABORATORY mm Hg 5:28 PM CDT Bicarbonate 25 21 - 28 04/19/2021 LABORATORY Arterial mmol/L 5:28 PM CDT Oxyhemoglobin 97 92 - 100 04/19/2021 LABORATORY Arterial % 5:28 PM CDT Base -2.1 -9.0 - 04/19/2021 LABORATORY Excess/Deficit 1.8 5:28 PM CDT (+/-) mmol/L FIO2 40 MILES 04/19/2021 LABORATORY 5:28 PM CDT Comment: ventilator Specimen Anatomical Collection Method Collection Time Receive d Time (Source) Location / / Volume Laterality Blood, arterial ARTERIAL LINE / Arterial Puncture 04/19/2021 4:58 P M 04/19/2021 5:04 Unknown / Unknown CDT PM CDT Shavon Pisano PA-C LAB - BLOOD ORDERABLES Performing Organization Address City/State/ZIP Code Phon e Number [place] [address] Care Lab [address] 1[address], Room 20B (ABNORMAL) Glucose by meter (04/19/2021 4:20 PM CDT) P athologist Signature GLUCOSE BY 166 (H) 70 - 99 04/19/2021 LABORATORY METER POCT mg/dL 4:27 PM CDT POC Specimen Anatomical Collection Method Collection Time Receive d Time (Source) Location / / Volume Laterality Blood BLOOD SPECIMEN / 04/19/2021 4:20 PM 04/19 4:27 Unknown CDT PM CDT Kushal BORGES - NADER POCT Performing Organization Address City/State/ZIP Code Phon e Number LAB[place]ATORY [place] [address] Care Lab [address] 1[address], Room 20B (ABNORMAL) Glucose by meter (04/19/2021 3:05 PM CDT) P athologist Signature GLUCOSE BY 152 (H) 70 - 99 04/19/2021 LABORATORY METER POCT mg/dL 3:11 PM CDT POC Specimen Anatomical Collection Method Collection Time Receive d Time (Source) Location / / Volume Laterality Blood BLOOD SPECIMEN / 04/19/2021 3:05 PM 04/19 3:11 Unknown CDT PM CDT Kushal DOE POCT Performing Organization Address City/State/ZIP Code Phon e Number LAB[place]ATORY [place] [address] Care Lab [address] 1[address], Room 20B (ABNORMAL) Glucose by meter (04/19/2021 2:13 PM CDT) athologist Signature GLUCOSE BY 168 (H) 70 - 99 04/19/2021 LABORATORY METER POCT mg/dL 2:56 PM CDT POC Specimen Anatomical Collection Method Collection Time Receive d Time (Source) Location / / Volume Laterality Blood BLOOD SPECIMEN / 04/19/2021 2:13 PM 04/19 2:56 Unknown CDT PM CDT Kushal Gardner MD LAB - BEAKER POCT Performing Organization Address City/State/ZIP Code Phon e Number LAB[place]ATORY [place] [address] Care Lab [address] 1[address], Room 20B Potassium (04/19/2021 2:07 PM CDT) athologist Signature Potassium 4.4 3.4 - 5.3 04/19/2021 LABORATORY mmol/L 2:30 PM CDT Specimen Anatomical Collection Method / Collection Time Recei shyla Time (Source) Location / Volume Laterality Blood ARTERIAL LINE / Venipuncture / 04/19/2021 2:07 021 2:13 Unknown Unknown PM CDT PM CDT Lucio Black MD LAB - BLOOD ORDERABLES Performing Organization Address City/State/ZIP Code Phon e Number [place] [address] Care Lab [address] 1[address], Room 20B (ABNORMAL) Phosphorus (04/19/2021 2:07 PM CDT) athologist Signature Phosphorus 2.3 (L) 2.5 - 4.5 04/19/2021 LABORATORY mg/dL 2:41 PM CDT Specimen Anatomical Collection Method / Collection Time Recei shyla Time (Source) Location / Volume Laterality Blood ARTERIAL LINE / Venipuncture / 04/19/2021 2:07 021 2:13 Unknown Unknown PM CDT PM CDT Lucio Black MD LAB - BLOOD ORDERABLES Performing Organization Address City/State/ZIP Code Phon e Number [place] [address] [phone] Care Lab [address] 1[address], Room 20B (ABNORMAL) Magnesium (04/19/2021 2:07 PM CDT) athologist Signature Magnesium 2.5 (H) 1.6 - 2.3 04/19/2021 LABORATORY mg/dL 2:41 PM CDT Specimen Anatomical Collection Method / Collection Time Recei shyla Time (Source) Location / Volume Laterality Blood ARTERIAL LINE / Venipuncture / 04/19/2021 2:07 021 2:13 Unknown Unknown PM CDT PM CDT Lucio Black MD LAB - BLOOD ORDERABLES Performing Organization Address City/State/ZIP Code Phon e Number [place] [address] Care Lab [address] 1[address], Room [address]B Ionized Calcium (04/19/2021 2:07 PM CDT) athologist Signature Calcium Ionized 4.4 4.4 - 5.2 04/19/2021 LABORATORY mg/dL 2:20 PM CDT Specimen Anatomical Collection Method / Collection Time Recei shyla Time (Source) Location / Volume Laterality Blood ARTERIAL LINE / Venipuncture / 04/19/2021 2:07 021 2:13 Unknown Unknown PM CDT PM CDT Lucio Black MD LAB - BLOOD ORDERABLES Performing Organization Address City/State/ZIP Code Phon e Number [place] [address] Care Lab [address] 1[address], Room 20B Lactic acid whole blood (04/19/2021 2:07 PM CDT) athologist Signature Lactic Acid 1.0 0.7 - 2.0 04/19/2021 LABORATORY mmol/L 2:20 PM CDT Specimen Anatomical Collection Method / Collection Time Recei shyla Time (Source) Location / Volume Laterality Blood ARTERIAL LINE / Venipuncture / 04/19/2021 2:07 021 2:13 Unknown Unknown PM CDT PM CDT Lucio Black MD LAB - BLOOD ORDERABLES Performing Organization Address City/State/ZIP Code Phon e Number LABORATORY [facility] [place] [address] Care Lab [address] 1[address], Room 20B (ABNORMAL) Comprehensive metabolic panel (04/19/2021 2:07 PM CDT) [facility] Method Time Signature Sodium 145 (H) 133 - 144 04/19/2021 LABORATORY mmol/L 2:41 PM CDT Potassium 4.4 3.4 - 5.3 04/19/2021 LABORATORY mmol/L 2:41 PM CDT Chloride 115 (H) 94 - 109 04/19/2021 LABORATORY mmol/L 2:41 PM CDT Carbon Dioxide 25 20 - 32 04/19/2021 LABORATORY (CO2) mmol/L 2:41 PM CDT Anion Gap 5 3 - 14 04/19/2021 LABORATORY mmol/L 2:41 PM CDT Urea Nitrogen 33 (H) 7 - 30 04/19/2021 LABORATORY mg/dL 2:41 PM CDT Creatinine 1.20 0.66 - 04/19/2021 LABORATORY 1.25 mg/dL 2:41 PM CDT Calcium 7.5 (L) 8.5 - 10.1 04/19/2021 LABORATORY mg/dL 2:41 PM CDT Glucose 155 (H) 70 - 99 04/19/2021 LABORATORY mg/dL 2:41 PM CDT Alkaline 31 (L) 40 - 150 04/19/2021 LABORATORY Phosphatase U/L 2:41 PM CDT AST 33 0 - 45 U/L 04/19/2021 LABORATORY 2:41 PM CDT ALT 18 0 - 70 U/L 04/19/2021 LABORATORY 2:41 PM CDT Protein Total 4.7 (L) 6.8 - 8.8 04/19/2021 LABORATORY g/dL 2:41 PM CDT Albumin 2.4 (L) 3.4 - 5.0 04/19/2021 LABORATORY g/dL 2:41 PM CDT Bilirubin Total 0.5 0.2 - 1.3 04/19/2021 LABORATORY mg/dL 2:41 PM CDT GFR Estimate 60 (L) >60 04/19/2021 LABORATORY mL/min/1.7 2:41 PM CDT 3m2 Comment: As of February [...] Time (Source) Location / Volume Laterality Blood ARTERIAL LINE / Venipuncture / 04/19/2021 2:07 021 2:13 Unknown Unknown PM CDT PM CDT Lucio Black MD LAB - BLOOD ORDERABLES Performing Organization Address City/State/ZIP Code Phon e Number [place] [address] [facility] [place] Lab [address], Room 20B (ABNORMAL) CBC with platelets (04/19/2021 2:07 PM CDT) [facility] gist Method Time Signature WBC Count 14.1 (H) 4.0 - 11.0 04/19/2021 LABORATORY 10e3/uL 2:15 PM CDT RBC Count 2.60 (L) 4.40 - 04/19/2021 LABORATORY 5.90 2:15 PM CDT 10e6/uL Hemoglobin 7.8 (L) 13.3 - 04/19/2021 LABORATORY 17.7 g/dL 2:15 PM CDT Hematocrit 23.4 (L) 40.0 - 04/19/2021 LABORATORY 53.0 % 2:15 PM CDT MCV 90 78 - 100 04/19/2021 LABORATORY fL 2:15 PM CDT MCH 30.0 26.5 - 04/19/2021 LABORATORY 33.0 pg 2:15 PM CDT MCHC 33.3 31.5 - 04/19/2021 LABORATORY 36.5 g/dL 2:15 PM CDT RDW 12.5 10.0 - 04/19/2021 LABORATORY 15.0 % 2:15 PM CDT Platelet Count 136 (L) 150 - 450 04/19/2021 LABORATORY 10e3/uL 2:15 PM CDT Specimen Anatomical Collection Method / Collection Time Recei shyla Time (Source) Location / Volume Laterality Blood ARTERIAL LINE / Venipuncture / 04/19/2021 2:07 021 2:13 Unknown Unknown PM CDT PM CDT Lucio Black MD LAB - BLOOD ORDERABLES Performing Organization Address City/State/ZIP Code Phon e Number [place]AT[place] [address] Care Lab [address] 1[address], Room 20B (ABNORMAL) Blood gas arterial with oxyhemoglobin (04/19/2021 2:07 PM CDT) [facility] Method Time Signature pH Arterial 7.38 7.35 - 04/19/2021 LABORATORY 7.45 2:20 PM CDT pCO2 Arterial 43 35 - 45 04/19/2021 LABORATORY mm Hg 2:20 PM CDT pO2 Arterial 140 (H) 80 - 105 04/19/2021 LABORATORY mm Hg 2:20 PM CDT Bicarbonate 25 21 - 28 04/19/2021 LABORATORY Arterial mmol/L 2:20 PM CDT Oxyhemoglobin 98 92 - 100 04/19/2021 LABORATORY Arterial % 2:20 PM CDT Base -0.1 -9.0 - 04/19/2021 LABORATORY Excess/Deficit 1.8 2:20 PM CDT (+/-) mmol/L FIO2 40 MILES 04/19/2021 LABORATORY 2:20 PM CDT Specimen Anatomical Collection Method Collection Time Receive d Time (Source) Location / / Volume Laterality Blood, arterial ARTERIAL LINE / Arterial Puncture 04/19/2021 2:07 P M 04/19/2021 2:13 Unknown / Unknown CDT PM CDT Lucio Black MD LAB - BLOOD ORDERABLES Performing Organization Address City/State/ZIP Code Phon e Number [place] [address] Care Lab [address] 1[address], Room 20B (ABNORMAL) Partial thromboplastin time (04/19/2021 2:06 PM CDT) P athologist Signature aPTT 65 (H) 22 - 38 04/19/2021 LABORATORY Seconds 2:29 PM CDT Comment: Effective 02/17/2021, the refere nce range for this assay has changed. Specimen Anatomical Collection Method / Collection Time Recei shyla Time (Source) Location / Volume Laterality Blood ARTERIAL LINE / Venipuncture / 04/19/2021 2:06 021 2:13 Unknown Unknown PM CDT PM CDT Lucio Black MD LAB - BLOOD ORDERABLES Performing Organization Address City/State/ZIP Code Phon e [place] [address] Care Lab [address] 1[address], Room 20B (ABNORMAL) INR (04/19/2021 2:06 PM CDT) P athologist Signature INR 1.31 (H) 0.85 - 1.15 04/19/2021 LABORATORY 2:27 PM CDT Comment: Effective 02/17/2021, the refere nce range for this assay has changed. Specimen Anatomical Collection Method / Collection Time Recei shyla Time (Source) Location / Volume Laterality Blood ARTERIAL LINE / Venipuncture / 04/19/2021 2:06 021 2:13 Unknown Unknown PM CDT PM CDT Lucio Black MD LAB - BLOOD ORDERABLES Performing Organization Address City/State/ZIP Code Phon e [place] [address] Care Lab [address] 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 An endotracheal tube terminates approximately 2 cm above the rajiv. James ogastric tube extends below the left hemidiaphragm, presumably in th e stomach. Right IJ central venous line terminates in the mid to dis edna SVC in good position. Mediastinal and left pleural drains are in place. Retrocardiac opacity could indicate left lower lobe atelectas is or consolidation. Right lung is clear. No pneumothorax. No signi ficant pleural fluid. DARYN RICHARDS MD SYSTEM ID: [id number] Narrative 04/19/2021 2:24 PM CDT CHEST PORTABLE ONE VIEW ?? 04/19/2021 2:00 PM HISTORY: Postoperative CVTS surgery. COMPARISON: Chest x-ray 04/16/2021. Procedure Note Daryn Richards MD - 04/19/2021Form atting of this note might be different from the original. CHEST PORTABLE ONE VIEW 04/19/2021 2:00 P M HISTORY: Postoperative CVTS surgery. COMPARISON: Chest x-ray 04/16/2021. 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 An endotracheal tube terminates approximately 2 cm above the rajiv. James ogastric tube extends below the left hemidiaphragm, presumably in th e stomach. Right IJ central venous line terminates in the mid to dis edna SVC in good position. Mediastinal and left pleural drains are in place. Retrocardiac opacity could indicate left lower lobe atelectas is or consolidation. Right lung is clear. No pneumothorax. No signi ficant pleural fluid. DARYN RICHARDS MD SYSTEM ID: [id number] Lucio Black MD IMG DIAGNOSTIC IMAGING ORDER [place] EKG 12-lead, tracing only (04/19/2021 1:46 PM CDT) Component Value Ref Range Test Analysis Performed Pathologis t Method Time At Signature Systolic Blood mmHg RADIOLOGY Pressure RESULTS Diastolic Blood mmHg RADIOLOGY Pressure RESULTS Ventricular Rate 58 BPM RADIOLOGY RESULTS Atrial Rate 58 BPM RADIOLOGY RESULTS LA Interval 154 ms RADIOLOGY RESULTS QRS Duration 106 ms RADIOLOGY RESULTS QT 420 ms RADIOLOGY RESULTS QTc 412 ms RADIOLOGY RESULTS P Beverly degrees RADIOLOGY RESULTS R AXIS 4 degrees RADIOLOGY RESULTS T Beverly 37 degrees RADIOLOGY RESULTS Interpretation Sinus bradycardia RADIOLO GY ECG Otherwise normal ECG RESULTS When compared with ECG of 19-APR-2021 07:12, (unconfirmed) No significant change was found Confirmed by MD BARTOLO, BA ID [id number]), avid editor Martinez Mcgregor ([id number]) on 04/23/2021 11:07:21 AM Specimen Anatomical Collection Method Collection Time Receive d Time (Source) Location / / Volume Laterality 04/19/2021 1:46 PM CDT 11:07 AM CDT Lucio Black MD ECG ORDERABLES Performing Organization Address City/State/ZIP Code Phon e Number RADIOLOGY RESULTS (ABNORMAL) Arterial Panel POCT (Lab Only) (04/19/2021 12:17 PM CDT) [facility] Method Time Signature pH Arterial POCT 7.39 7.35 - 04/23/2021 LABORATOR Y 7.45 4:52 PM CDT POC pCO2 Arterial 43 35 - 45 mm 04/23/2021 LABORATORY POCT Hg 4:52 PM CDT POC pO2 Arterial 275 (H) 80 - 105 04/23/2021 LABORATORY POCT mm Hg 4:52 PM CDT POC Bicarbonate 26 21 - 28 04/23/2021 LABORATORY Arterial POCT mmol/L 4:52 PM CDT POC Sodium POCT 141 133 - 144 04/23/2021 LABORATORY mmol/L 4:52 PM CDT POC Potassium POCT 4.5 3.5 - 5.0 04/23/2021 LABORATORY mmol/L 4:52 PM CDT POC Hemoglobin POCT 7.3 (L) 13.3 - 04/23/2021 LABORATORY 17.7 g/dL 4:52 PM CDT POC Glucose Whole 182 (H) 70 - 99 04/23/2021 LABORATORY Blood POCT mg/dL 4:52 PM CDT POC Calcium, Ionized 4.8 4.4 - 5.2 04/23/2021 LABORATOR Y Whole Blood POCT mg/dL 4:52 PM CDT POC Base 0.9 -9.6 - 2.0 04/23/2021 LABORATORY Excess/Deficit mmol/L 4:52 PM CDT POC (+/-) POCT FIO2 POCT 100.0 % 04/23/2021 LABORATORY 4:52 PM CDT POC Lactic Acid POCT 1.3 <=2.0 04/23/2021 LABORATOR Y mmol/L 4:52 PM CDT POC Specimen Anatomical Collection Method Collection Time Receive d Time (Source) Location / / Volume Laterality Blood, arterial BLOOD SPECIMEN / 04/19/2021 12:17 04/10 7:59 Unknown PM CDT AM CDT Rochus Kenichi Voeller MD LAB - BEAKER POCT Performing Organization Address City/[facility]/ZIP Code Phon e Number LABORATORY [place] [address] Care Lab [address] floor, Room [address]B (ABNORMAL) INR (04/19/2021 12:16 PM CDT) P athologist Signature INR 1.56 (H) 0.85 - 1.15 04/19/2021 LABORATORY 12:42 PM CDT Comment: Effective 02/17/2021, the refere nce range for this assay has changed. Specimen Anatomical Collection Method / Collection Time Recei shyla Time (Source) Location / Volume Laterality Blood ARTERIAL LINE / Venipuncture / 04/19/2021 12:16 2020 Unknown Unknown PM CDT 12:22 PM CDT Kushal Gardner MD LAB - BLOOD ORDERABLES Performing Organization Address City/[facility]/ZIP Code Phon e Number [place]AT[place] [address] Care Lab [address] 1[address], Room [address]B (ABNORMAL) Partial thromboplastin time (04/19/2021 12:16 PM CDT) P athologist Signature aPTT 53 (H) 22 - 38 04/19/2021 LABORATORY Seconds 12:43 PM CDT Comment: Effective 02/17/2021, the refere nce range for this assay has changed. Specimen Anatomical Collection Method / Collection Time Recei shyla Time (Source) Location / Volume Laterality Blood ARTERIAL LINE / Venipuncture / 04/19/2021 12:16 2020 Unknown Unknown PM CDT 12:22 PM CDT Kushal Gardner MD LAB - BLOOD ORDERABLES Performing Organization Address City/State/ZIP Code Phon e Number [place]AT[place] [address] Care Lab [address] 1[address], Room [address]B Fibrinogen activity (04/19/2021 12:16 PM CDT) P athologist Signature Fibrinogen 245 170 - 490 04/19/2021 LABORATORY Activity mg/dL 12:43 PM CDT Comment: Effective 02/17/2021, the refere nce range for this assay has changed. Specimen Anatomical Collection Method / Collection Time Recei shyla Time (Source) Location / Volume Laterality Blood ARTERIAL LINE / Venipuncture / 04/19/2021 12:16 2020 Unknown Unknown PM CDT 12:22 PM CDT Kushal Gardner MD LAB - BLOOD ORDERABLES Performing Organization Address City/State/ZIP Code Phon e Number [place] [address] [facility] Lab [address] 1st floor, Room 20B (ABNORMAL) Basic metabolic panel (04/19/2021 12:16 PM CDT) Analysis Performed At Patho logist Time Signature Sodium 144 133 - 144 04/19/2021 LABORATORY mmol/L 12:53 PM CDT Potassium 4.6 3.4 - 5.3 04/19/2021 LABORATORY mmol/L 12:53 PM CDT Chloride 113 (H) 94 - 109 04/19/2021 LABORATORY mmol/L 12:53 PM CDT Carbon Dioxide 25 20 - 32 04/19/2021 LABORATORY (CO2) mmol/L 12:53 PM CDT Anion Gap 6 3 - 14 04/19/2021 LABORATORY mmol/L 12:53 PM CDT Urea Nitrogen 33 (H) 7 - 30 04/19/2021 LABORATORY mg/dL 12:53 PM CDT Creatinine 1.21 0.66 - 04/19/2021 LABORATORY 1.25 mg/dL 12:53 PM CDT Calcium 7.8 (L) 8.5 - 10.1 04/19/2021 LABORATORY mg/dL 12:53 PM CDT Glucose 183 (H) 70 - 99 04/19/2021 LABORATORY mg/dL 12:53 PM CDT GFR Estimate 60 (L) >60 04/19/2021 LABORATORY mL/min/1.7 12:53 PM CDT 3m2 Comment: As of February [...] Time (Source) Location / Volume Laterality Blood ARTERIAL LINE / Venipuncture / 04/19/2021 12:16 2020 Unknown Unknown PM CDT 12:22 PM CDT Kushal Gardner MD LAB - BLOOD ORDERABLES Performing Organization Address City/State/ZIP Code Phon e Number [place] [phone] [facility] Lab [address] [place] 1st floor, Room 20B (ABNORMAL) CBC with platelets (04/19/2021 12:16 PM CDT) [facility] Method Time Signature WBC Count 14.9 (H) 4.0 - 11.0 04/19/2021 LABORATORY 10e3/uL 12:38 PM CDT RBC Count 2.38 (L) 4.40 - 04/19/2021 LABORATORY 5.90 12:38 PM CDT 10e6/uL Hemoglobin 7.0 (L) 13.3 - 04/19/2021 LABORATORY 17.7 g/dL 12:38 PM CDT Hematocrit 21.1 (L) 40.0 - 04/19/2021 LABORATORY 53.0 % 12:38 PM CDT MCV 89 78 - 100 04/19/2021 LABORATORY fL 12:38 PM CDT MCH 29.4 26.5 - 04/19/2021 LABORATORY 33.0 pg 12:38 PM CDT MCHC 33.2 31.5 - 04/19/2021 LABORATORY 36.5 g/dL 12:38 PM CDT RDW 12.4 10.0 - 04/19/2021 LABORATORY 15.0 % 12:38 PM CDT Platelet Count 112 (L) 150 - 450 04/19/2021 LABORATORY 10e3/uL 12:38 PM CDT Specimen Anatomical Collection Method / Collection Time Recei shyla Time (Source) Location / Volume Laterality Blood ARTERIAL LINE / Venipuncture / 04/19/2021 12:16 2020 Unknown Unknown PM CDT 12:22 PM CDT Kushal Gardner MD LAB - BLOOD ORDERABLES Performing Organization Address City/State/ZIP Code Phon e Number [place] [address] Care Lab [address], Room 20B (ABNORMAL) Arterial Panel POCT (Lab Only) (04/19/2021 11:05 AM CDT) [facility] Method Time Signature pH Arterial POCT 7.34 (L) 7.35 - 04/23/2021 LABORATOR Y 7.45 4:51 PM CDT POC pCO2 Arterial 51 (H) 35 - 45 04/23/2021 LABORATORY POCT mm Hg 4:51 PM CDT POC pO2 Arterial 313 (H) 80 - 105 04/23/2021 LABORATORY POCT mm Hg 4:51 PM CDT POC Bicarbonate 27 21 - 28 04/23/2021 LABORATORY Arterial POCT mmol/L 4:51 PM CDT POC Sodium POCT 141 133 - 144 04/23/2021 LABORATORY mmol/L 4:51 PM CDT POC Potassium POCT 4.9 3.5 - 5.0 04/23/2021 LABORATORY mmol/L 4:51 PM CDT POC Hemoglobin POCT 7.3 (L) 13.3 - 04/23/2021 LABORATORY 17.7 g/dL 4:51 PM CDT POC Glucose Whole 175 (H) 70 - 99 04/23/2021 LABORATORY Blood POCT mg/dL 4:51 PM CDT POC Calcium, Ionized 4.2 (L) 4.4 - 5.2 04/23/2021 LABORATOR Y Whole Blood POCT mg/dL 4:51 PM CDT POC Base 1.2 -9.6 - 04/23/2021 LABORATORY Excess/Deficit 2.0 4:51 PM CDT POC (+/-) POCT mmol/L FIO2 POCT 80.0 % 04/23/2021 LABORATORY 4:51 PM CDT POC Lactic Acid POCT 1.2 <=2.0 04/23/2021 LABORATOR Y mmol/L 4:51 PM CDT POC Specimen Anatomical Collection Method Collection Time Receive d Time (Source) Location / / Volume Laterality Blood, arterial BLOOD SPECIMEN / 04/19/2021 11:05 04/10 7:59 Unknown AM CDT AM CDT Kushal Gardner MD LAB - BEAKER POCT Performing Organization Address City/State/ZIP Code Phon e Number LABORATORY POC [facility] [place] [address] Care Lab [address] [place] 1st floor, Room 20B (ABNORMAL) Venous Panel POCT (Lab Only) (04/19/2021 10:36 AM CDT) [facility] Method Time Signature pH Venous POCT 7.36 7.32 - 04/23/2021 LABORATORY 7.43 4:50 PM CDT POC pCO2 Venous POCT 52 (H) 40 - 50 mm 04/23/2021 LABORATO RY Hg 4:50 PM CDT POC pO2 Venous POCT 41 25 - 47 mm 04/23/2021 LABORATOR Y Hg 4:50 PM CDT POC Bicarbonate 29 (H) 21 - 28 04/23/2021 LABORATORY Venous POCT mmol/L 4:50 PM CDT POC Sodium POCT 142 133 - 144 04/23/2021 LABORATORY mmol/L 4:50 PM CDT POC Potassium POCT 3.9 3.5 - 5.0 04/23/2021 LABORATORY mmol/L 4:50 PM CDT POC Hemoglobin POCT 7.0 (L) 13.3 - 04/23/2021 LABORATORY 17.7 g/dL 4:50 PM CDT POC Glucose Whole 156 (H) 70 - 99 04/23/2021 LABORATORY Blood POCT mg/dL 4:50 PM CDT POC Base 3.5 (H) -8.1 - 1.9 04/23/2021 LABORATORY Excess/Deficit mmol/L 4:50 PM CDT POC (+/-) POCT Calcium, Ionized 4.1 (L) 4.4 - 5.2 04/23/2021 LABORATOR Y Whole Blood POCT mg/dL 4:50 PM CDT POC Lactic Acid POCT 0.9 <=2.0 04/23/2021 LABORATOR Y mmol/L 4:50 PM CDT POC FIO2 POCT 80.0 % 04/23/2021 LABORATORY 4:50 PM CDT POC Specimen Anatomical Collection Method Collection Time Receive d Time (Source) Location / / Volume Laterality Blood, venous BLOOD SPECIMEN / 04/19/2021 10:36 2020 7:59 Unknown AM CDT AM CDT Kushal Gardner MD LAB - BEAKER POCT Performing Organization Address City/State/ZIP Code Phon e Number LAB[place]ATORY [place] [phone] Care Lab [address] 1[address], Room 20B (ABNORMAL) Arterial Panel POCT (Lab Only) (04/19/2021 10:03 AM CDT) [facility] Method Time Signature pH Arterial POCT 7.35 7.35 - 04/23/2021 LABORATOR Y 7.45 4:48 PM CDT POC pCO2 Arterial 45 35 - 45 mm 04/23/2021 LABORATORY POCT Hg 4:48 PM CDT POC pO2 Arterial 292 (H) 80 - 105 04/23/2021 LABORATORY POCT mm Hg 4:48 PM CDT POC Bicarbonate 25 21 - 28 04/23/2021 LABORATORY Arterial POCT mmol/L 4:48 PM CDT POC Sodium POCT 142 133 - 144 04/23/2021 LABORATORY mmol/L 4:48 PM CDT POC Potassium POCT 4.2 3.5 - 5.0 04/23/2021 LABORATORY mmol/L 4:48 PM CDT POC Hemoglobin POCT 8.6 (L) 13.3 - 04/23/2021 LABORATORY 17.7 g/dL 4:48 PM CDT POC Glucose Whole 174 (H) 70 - 99 04/23/2021 LABORATORY Blood POCT mg/dL 4:48 PM CDT POC Calcium, Ionized 4.6 4.4 - 5.2 04/23/2021 LABORATOR Y Whole Blood POCT mg/dL 4:48 PM CDT POC Base -0.5 -9.6 - 2.0 04/23/2021 LABORATORY Excess/Deficit mmol/L 4:48 PM CDT POC (+/-) POCT FIO2 POCT 80.0 % 04/23/2021 LABORATORY 4:48 PM CDT POC Lactic Acid POCT 0.9 <=2.0 04/23/2021 SH LABORATOR Y mmol/L 4:48 PM CDT POC Specimen Anatomical Collection Method Collection Time Receive d Time (Source) Location / / Volume Laterality Blood, arterial BLOOD SPECIMEN / 04/19/2021 10:03 04/10 7:59 Unknown AM CDT AM CDT Kushal Gardner MD LAB - BEAKER POCT Performing Organization Address City/State/ZIP Code Phon e Number LAB[place]ATORY [place] [address] Care Lab [address] 1[address], Room 20B (ABNORMAL) Glucose by meter (04/19/2021 10:00 AM CDT) P athologist Signature GLUCOSE BY 182 (H) 70 - 99 04/19/2021 LABORATORY METER POCT mg/dL 10:07 AM CDT POC Specimen Anatomical Collection Method Collection Time Receive d Time (Source) Location / / Volume Laterality Blood BLOOD SPECIMEN / 04/19/2021 10:00 021 Unknown AM CDT 10:07 AM CDT Kushal BORGES - NADER POCT Performing Organization Address City/[facility]/ZIP Code Phon e Number LAB[place]ATORY [place] [address] Care Lab [address] 1[address], Room 20B (ABNORMAL) Glucose by meter (04/19/2021 8:57 AM CDT) P athologist Signature GLUCOSE BY 181 (H) 70 - 99 04/19/2021 LABORATORY METER POCT mg/dL 9:04 AM CDT POC Specimen Anatomical Collection Method Collection Time Receive d Time (Source) Location / / Volume Laterality Blood BLOOD SPECIMEN / 04/19/2021 8:57 AM 04/19 9:04 Unknown CDT AM CDT Kushal Gardner MD LAB - BESTALIN POCT Performing Organization Address City/State/ZIP Code Phon e Number LAB[place]ATORY [place] [phone] Care Lab [address] [place] 1st floor, Room 20B (ABNORMAL) Arterial Panel POCT (Lab Only) (04/19/2021 8:10 AM CDT) [facility] Method Time Signature pH Arterial POCT 7.42 7.35 - 04/23/2021 LABORATOR Y 7.45 4:47 PM CDT POC pCO2 Arterial 38 35 - 45 mm 04/23/2021 LABORATORY POCT Hg 4:47 PM CDT POC pO2 Arterial 231 (H) 80 - 105 04/23/2021 LABORATORY POCT mm Hg 4:47 PM CDT POC Bicarbonate 25 21 - 28 04/23/2021 LABORATORY Arterial POCT mmol/L 4:47 PM CDT POC Sodium POCT 142 133 - 144 04/23/2021 LABORATORY mmol/L 4:47 PM CDT POC Potassium POCT 4.1 3.5 - 5.0 04/23/2021 LABORATORY mmol/L 4:47 PM CDT POC Hemoglobin POCT 9.6 (L) 13.3 - 04/23/2021 LABORATORY 17.7 g/dL 4:47 PM CDT POC Glucose Whole 182 (H) 70 - 99 04/23/2021 LABORATORY Blood POCT mg/dL 4:47 PM CDT POC Calcium, Ionized 4.6 4.4 - 5.2 04/23/2021 LABORATOR Y Whole Blood POCT mg/dL 4:47 PM CDT POC Base 0.4 -9.6 - 2.0 04/23/2021 LABORATORY Excess/Deficit mmol/L 4:47 PM CDT POC (+/-) POCT FIO2 POCT 60.0 % 04/23/2021 LABORATORY 4:47 PM CDT POC Lactic Acid POCT 0.5 <=2.0 04/23/2021 LABORATOR Y mmol/L 4:47 PM CDT POC Specimen Anatomical Collection Method Collection Time Receive d Time (Source) Location / / Volume Laterality Blood, arterial BLOOD SPECIMEN / 04/19/2021 8:10 AM 7:59 Unknown CDT AM CDT Kushal BORGES - [facility] POCT Performing Organization Address City/State/ZIP Code Phon e Number LABORATORY [place] [address] Care Lab [address] 1[address], Room 20B EKG 12-lead, tracing only (04/19/2021 7:12 AM CDT) Component Value Ref Range Test Analysis Performed Pathologis t Method Time At Signature Systolic Blood mmHg RADIOLOGY Pressure RESULTS Diastolic Blood mmHg RADIOLOGY Pressure RESULTS Ventricular Rate 55 BPM RADIOLOGY RESULTS Atrial Rate 55 BPM RADIOLOGY RESULTS LA Interval 166 ms RADIOLOGY RESULTS QRS Duration 110 ms RADIOLOGY RESULTS QT 424 ms RADIOLOGY RESULTS QTc 405 ms RADIOLOGY RESULTS P Beverly 67 degrees RADIOLOGY RESULTS R AXIS -25 degrees RADIOLOGY RESULTS T Beverly 85 degrees RADIOLOGY RESULTS Interpretation Sinus bradycardia RADIOLO GY ECG Nonspecific ST and T wave abnormality RESULTS Abnormal ECG When compared with ECG of 13-MAR-2021 11:02, Lateral ST/T changes more prominent Confirmed by MD BARTOLO, BA ID [id number]), avid editor Martinez Mcgregor ([id number]) on 04/23/2021 10:37:35 AM Specimen Anatomical Collection Method Collection Time Receive d Time (Source) Location / / Volume Laterality 04/19/2021 7:12 AM CDT 10:37 AM CDT Kushal Gardner MD ECG ORDERABLES Performing Organization Address City/State/ZIP Code Phon e Number RADIOLOGY RESULTS (ABNORMAL) Hemoglobin (04/19/2021 6:08 AM CDT) P athologist Signature Hemoglobin 10.5 (L) 13.3 - 17.7 04/19/2021 LABORATORY g/dL 6:16 AM CDT Specimen Anatomical Collection Method / Collection Time Recei shyla Time (Source) Location / Volume Laterality Blood STRUCTURE OF RIGHT Venipuncture / 04/19/2021 6:08 04/10 6:13 UPPER LIMB / Unknown AM CDT AM CDT Unknown Patsy Gutierrez MD LAB - BLOOD ORDERABLES Performing Organization Address City/State/ZIP Code Phon e Number [place] [address] Care Lab [address] 1[address], Room 20B (ABNORMAL) Glucose (04/19/2021 6:08 AM CDT) athologist Signature Glucose 193 (H) 70 - 99 04/19/2021 LABORATORY mg/dL 6:31 AM CDT Specimen Anatomical Collection Method / Collection Time Recei shyla Time (Source) Location / Volume Laterality Blood STRUCTURE OF RIGHT Venipuncture / 04/19/2021 6:08 / 6:13 UPPER LIMB / Unknown AM CDT AM CDT Unknown Daniel Baugh MD LAB - BLOOD ORDERABLES Performing Organization Address City/State/ZIP Code [place] [address] Care Lab [address] 1[address], Room [address]B Potassium (04/19/2021 6:08 AM CDT) athologist Signature Potassium 4.6 3.4 - 5.3 04/19/2021 LABORATORY mmol/L 6:27 AM CDT Specimen Anatomical Collection Method / Collection Time Recei shyla Time (Source) Location / Volume Laterality Blood STRUCTURE OF RIGHT Venipuncture / 04/19/2021 6:08 04/10 6:13 UPPER LIMB / Unknown AM CDT AM CDT Unknown Daniel Baugh MD LAB - BLOOD ORDERABLES Performing Organization Address City/State/ZIP Code [place] [address] Care Lab [address] 1[address], Room 20B (ABNORMAL) Creatinine (04/19/2021 6:08 AM CDT) athologist Signature Creatinine 1.34 (H) 0.66 - 04/19/2021 LABORATORY 1.25 mg/dL 6:31 AM CDT GFR Estimate 53 (L) >60 04/19/2021 LABORATORY mL/min/1.7 6:31 AM CDT 3m2 Comment: As of February [...] Laterality Blood STRUCTURE OF RIGHT Venipuncture / 04/19/2021 6:08 04/10 6:13 UPPER LIMB / Unknown AM CDT AM CDT Unknown Daniel Baugh MD LAB - BLOOD ORDERABLES Performing Organization Address City/State/ZIP Code Phon [place] [address] [phone] Care Lab [address], [address]B documented in this encounter Visit Diagnoses Diagnosis Coronary artery disease involving nikolai coronary artery of nikolai heart without angina pectoris - Primary CAD (coronary artery disease) Coronary atherosclerosis of unspecified type of vessel, nikolai or graft Type 2 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, with long-term current use of insulin (H) S/P coronary artery stent placement Postsurgical percutaneous transluminal c oronary angioplasty status S/P CABG (coronary artery bypass graft) 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 documented in this encounter Admitting Diagnoses Diagnosis Coronary artery disease involving nikolai coronary artery of nikolai heart without angina pectoris CAD (coronary artery disease) Coronary atherosclerosis of unspecified type of vessel, nikolai or graft documented in this encounter Administered Medications Inactive Administered Medications - up to 3 most recent administrations Medication Order MAR Action Action Date Dose Rate Site acetaminophen (TYLENOL) tablet Given 04/23/2021 10:01 PM CDT 650 mg 650 mg 650 mg, Oral, EVERY 4 HOURS PRN, other, For optimal non-opioid multimodal pain management to improve pain control., Starting on Thu04/22/21 at 0000, May give first dose 4 hours after last scheduled dose of acetaminophen (TYLENOL). Maximum acetaminophen dose from all sources = 75 mg/kg/day not to exceed 4 grams/day. Given 04/22/2021 8:41 PM CDT 650 mg acetaminophen (TYLENOL) tablet 975 mg Given 04/22/2021 6:38 AM CDT 975 mg 975 mg, Oral, EVERY 8 HOURS, First dose on Thu04/19/21 at 1400, For 3 days, Administer for multimodal surgical pain management. Maximum acetaminophen dose from all sources = 75 mg/kg/day not to exceed 4 grams/day. Given 04/21/2021 8:41 PM CDT 975 mg Given 04/21/2021 2:24 PM CDT 975 mg albumin human 5 % injection 500-1,000 mL Given 04/19/2021 9:04 PM CDT 1,000 mLs Intravenous, 500-1,000 mL, ONCE PRN, other, for intravascular volume requirement post-op, Starting on Thu04/19/21 at 1342, For 1 dose amLODIPine (NORVASC) tablet 10 mg Given 04/25/2021 10:02 AM CDT 10 mg 10 mg, Oral, DAILY, First dose (after last modification) on Thu04/22/21 at 0900 Given 04/24/2021 8:40 AM CDT 10 mg Given 04/23/2021 9:28 AM CDT 10 mg amLODIPine (NORVASC) tablet 5 mg Given 04/21/2021 10:48 AM CDT 5 mg 5 mg, Oral, DAILY, First dose on Thu04/21/21 at 1030 amLODIPine (NORVASC) tablet 5 mg Given 04/21/2021 2:24 PM CDT 5 mg 5 mg, Oral, ONCE, On Thu04/21/21 at 1400, For 1 dose aspirin (ASA) chewable tablet 162 mg Given 04/19/2021 5:55 AM CDT 162 mg 162 mg, Oral, PRE-OP/PRE-PROCEDURE, Starting on Thu04/19/21 at 0544, For 1 dose, This order for CABG patients only (not Valve Replacement). Give if patient did NOT already receive any aspirin on the same day of the procedure., Pre-procedure aspirin (ASA) chewable tablet 162 mg Given 04/23/2021 9:28 AM CDT 162 mg 162 mg, Oral or NG Tube, DAILY, First dose on Thu04/20/21 at 0900, Chest tube output less than 300 mL/8 hours Given 04/22/2021 9:16 AM CDT 162 mg Given 04/21/2021 9:56 AM CDT 162 mg aspirin (ASA) chewable tablet 324 mg Given 04/25/2021 10:00 AM CDT 324 mg 324 mg, Oral or NG Tube, DAILY, First dose (after last modification) on Thu04/24/21 at 0900, Chest tube output less than 300 mL/8 hours Given 04/24/2021 8:40 AM CDT 324 mg carvedilol (COREG) tablet 6.25 mg Given 04/25/2021 9:58 AM CDT 6.25 mg 6.25 mg, Oral, 2 TIMES DAILY WITH MEALS, First dose on Thu04/23/21 at 1800, Hold is sbp is < or = 90 mmHg or HR is < or = 60 bpm Given 04/24/2021 5:10 PM CDT 6.25 mg Given 04/24/2021 8:40 AM CDT 6.25 mg ceFAZolin (ANCEF) intermittent New Bag 04/20/2021 12:22 PM CDT 2 g 200 mL/hr infusion 2 g in 100 mL dextrose PRE-MIX Routine, 2 g, Intravenous, EVERY 8 HOURS, First dose on Thu04/19/21 at 2000, For 3 doses, First dose 8 hours after last dose during surgery. Stop within 48 hours of surgery end time., Indications: Perioperative Pharmacoprophylaxis New Bag 04/20/2021 5:30 AM CDT 2 g 200 mL/hr New Bag 04/19/2021 8:32 PM CDT 2 g 200 mL/hr chlorhexidine (PERIDEX) 0.12 % solution 10 mL Given 04/19/2021 5:56 AM CDT 15 mLs 10 mL, Swish & Spit, ONCE, On Thu04/19/21 at 0600, For 1 dose, Swish for 1 minute in PRE OP area fraud prevention analyst to surgery., Pre-procedure cloNIDine (CATAPRES) tablet 0.1 mg Given 04/25/2021 10:02 AM CDT 0.1 mg 0.1 mg, Oral, 2 TIMES DAILY, First dose on Thu04/24/21 at 1000 Given 04/24/2021 9:07 PM CDT 0.1 mg Given 04/24/2021 12:15 PM CDT 0.1 mg dextrose 5% and 0.45% NaCl + KCl Rate/Dose Verify 04/19/2021 7:30 P M CDT 30 mL/hr 20 mEq/L infusion at 1-30 mL/hr, Intravenous, CONTINUOUS, Discontinue IV fluids when PO well tolerated., Starting on Thu04/19/21 at 1400, Until Thu04/21/21 at 1831 New Bag 04/19/2021 2:17 PM CDT 20 mL/hr dextrose 50 % injection 25-50 mL 25-50 mL, Intravenous, EVERY 15 MIN PRN, low blood sug ar, Administer over 1-5 Minutes, Starting on 04/21/21 at 1822 , Use if have IV access, BG [...] Vesicant. famotidine (PEPCID) tablet 20 mg Given 04/19/2021 5:56 AM CDT 20 mg 20 mg, Oral, PRE-OP/PRE-PROCEDURE, Starting on Thu04/19/21 at 0544, For 1 dose, Administer the dose in Pre-op the day of surgery., Pre-procedure fentaNYL (PF) (SUBLIMAZE) injection 50 m cg Given 04/19/2021 12:23 PM CDT 50 mcg 50 mcg, Intravenous, PRE-OP/PRE-PROCEDURE, Starting on Thu04/19/21 at 0613, For 2 doses, Give in pre-op only. DO not give if patient is somnolent, low Respiratory Rate or low SpO2., Pre-procedure Given 04/19/2021 12:20 PM CDT 100 mcg Given 04/19/2021 9:47 AM CDT 100 mcg ferrous sulfate CR tablet 140 mg Given 04/25/2021 9:56 AM CDT 140 mg 140 mg, Oral, DAILY, First dose on Thu04/24/21 at 0900, 45 mg of Elemental iron. Formulary sub for MANAGED CARE ANALYST iron. Given 04/24/2021 12:15 PM CDT 140 mg furosemide (LASIX) injection 20 mg Given 04/22/2021 1:39 PM CDT 20 mg 20 mg, Intravenous, ONCE, Administer over 1-3 Minutes, On Thu04/22/21 at 0900, For 1 dose, Give after blood furosemide (LASIX) injection 20 mg Given 04/23/2021 9:38 AM CDT 20 mg 20 mg, Intravenous, ONCE, Administer over 1-3 Minutes, On Thu04/23/21 at 0930, For 1 dose, Give after blood gabapentin (NEURONTIN) capsule 600 mg Given 04/24/2021 11:11 PM CDT 600 mg 600 mg, Oral, 2 TIMES DAILY, First dose on Thu04/19/21 at 2100 Given 04/24/2021 9:06 PM CDT 600 mg Given 04/23/2021 8:57 PM CDT 600 mg glucagon injection 1 mg 1 mg, Subcutaneous, EVERY 15 MIN PRN, low blood sugar, May repeat x 1 only, Starting on Thu04/21/21 at 1822, May giv e SQ or IM. ONLY use glucagon IF patient has NO IV access AND is UNABLE to swallo w AND blood glucose is LESS than or EQUAL to 50 mg/dL. glucose gel 15-30 g 15-30 g, Oral, EVERY 15 MIN PRN, low blo od sugar, Starting on Thu04/21/21 at 1822, Give first dose for initial blood glucose [...] Document juice on I and O flowsheet. heparin ANTICOAGULANT injection 5,000 Given 04/25/2021 5:06 AM C DT 5,000 Units Units 5,000 Units, Subcutaneous, EVERY 8 HOURS, First dose on Thu04/20/21 at 1200, HOLD if platelet count falls below 70,000/microliter and notify provider. High concentration heparin. Not for line flush or cath care. Given 04/24/2021 9:07 PM CDT 5,000 Units Given 04/24/2021 12:15 PM CDT 5,000 Units hydrALAZINE (APRESOLINE) injection 10 mg Given 04/25/2021 5:15 AM CDT 10 mg 10 mg, Intravenous, EVERY 30 MIN PRN, high blood pressure, Systolic Blood Pressure greater than 140 mmHg or Diastolic Blood Pressure greater than 90 mmHg, Administer over 1 Minutes, Starting on Thu04/19/21 at 1341 Given 04/24/2021 11:24 PM CDT 10 mg Given 04/24/2021 2:15 AM CDT 10 mg HYDROmorphone (DILAUDID) injection 0.2 m g Given 04/20/2021 1:08 AM CDT 0.2 mg 0.2 mg, Intravenous, EVERY 2 HOURS PRN, other, moderate pain (pain rating 4-6) IF patient unable to take oral pain medication or pain not controlled with oral analgesics, Starting on Thu04/19/21 at 1341, Hold IV PRN opioid dose for analgesic side effects. Notify provider to assess for uncontrolled pain or analgesic side effects. Given 04/19/2021 5:15 PM CDT 0.2 mg HYDROmorphone (DILAUDID) injection 0.4 m g 0.4 mg, Intravenous, EVERY 2 HOURS PRN, other, severe pain (pain rating 7-10) IF patient unable to take oral pain medication or pain no t controlled with oral analgesics, Starting on Thu04/19/21 at 1 341, Hold IV PRN opioid dose for analgesic side effects. Notify provider to assess for uncontroll ed pain or analgesic side effects. insulin 1 unit/mL in saline Rate/Dose Change 04/21/2021 12:19 2 Uni ts/hr 2 mL/hr (NovoLIN, HumuLIN Regular) AM CDT drip - ADULT IV Infusion Intravenous, at 0-24 mL/hr, CONTINUOUS, Starting on Thu04/19/21 at 1400, Initiate drip with Algorithm #1 (see hyperlink to protocol). Start protocol only if glucose greater than 150 mg/dL. Maintain glucose level between 100-150 mg/dL. Discontinue when glycemic control achieved and transitioning to SQ insulin, or Insulin therapy no longer required. When blood glucose has stabilized and patient is tolerating PO intake, call provider for transition to SQ insulin. For Infusion Instructions, Click on ADULT DRIP PROTOCOL hyperlink below. New Bag 04/20/2021 10:10 PM CDT 4 Units/hr 4 mL/hr Rate/Dose Verify 04/20/2021 10:08 PM CDT 4 Units/hr 4 mL/hr insulin 1 unit/mL in saline Rate/Dose Change 04/23/2021 3:15 1 Units/ hr 1 mL/hr (NovoLIN, HumuLIN Regular) AM CDT drip - ADULT IV Infusion Intravenous, at 0-24 mL/hr, CONTINUOUS, Starting on 04/22/21 at 1730, Initiate drip with Algorithm #1 (see hyperlink to protocol). Start protocol only if glucose greater than 150 mg/dL. Maintain glucose level between 100-150 mg/dL. Discontinue when glycemic control achieved and transitioning to SQ insulin, or Insulin therapy no longer required. When blood glucose has stabilized and patient is tolerating PO intake, call provider for transition to SQ insulin. For Infusion Instructions, Click on ADULT DRIP PROTOCOL hyperlink below. Rate/Dose Verify 04/23/2021 2:07 AM CDT 2 Units/hr 2 mL/hr Rate/Dose Change 04/23/2021 1:08 AM CDT 2 Units/hr 2 mL/hr insulin aspart (NovoLOG) injection (RAPID Given 04/21/2021 5:49 PM CDT 5 Units ACTING) 1-7 Units, Subcutaneous, 3 TIMES DAILY BEFORE MEALS, First dose on 04/21/21 at 0800, Correction Scale - MEDIUM INSULIN RESISTANCE DOSING Do Not give Correction Insulin if Pre-Meal BG less than 140. For Pre-Meal BG 140 - 189 give 1 unit. For Pre-Meal BG 190 - 239 give 2 units. For Pre-Meal BG 240 - 289 give 3 units. For Pre-Meal BG 290 - 339 give 4 units. For Pre-Meal BG 340- 399 give 5 units. For Pre-Meal BG 400-449 give 6 units For Pre-Meal BG greater than or equal to 450 give 7 units. To be given with prandial insulin, and based on pre-meal blood glucose. Notify provider if glucose greater than or equal to 350 mg/dL after administration of correction dose. If given at mealtime, administer within 30 minutes of start of meal Given 04/21/2021 12:39 PM CDT 3 Units Given 04/21/2021 9:58 AM CDT 2 Units insulin aspart (NovoLOG) injection (RAPID Given 04/22/2021 9:19 AM CDT 4 Units ACTING) Subcutaneous, EVERY MORNING BEFORE BREAKFAST, First dose on 04/22/21 at 0730, DOSE: 1 units per 8 grams of carbohydrate. Only chart total amount of units given. Do not give if pre-prandial glucose is less than 60 mg/dL. If given at mealtime, administer within 30 minutes of start of meal insulin aspart (NovoLOG) injection (RAPID Given 04/22/2021 1:52 PM CDT 4 Units ACTING) Subcutaneous, DAILY WITH LUNCH, First dose on Thu04/21/21 at 1200, DOSE: 1 units per 8 grams of carbohydrate. Only chart total amount of units given. Do not give if pre-prandial glucose is less than 60 mg/dL. If given at mealtime, administer within 30 minutes of start of meal Given 04/21/2021 1:43 PM CDT 2 Units insulin aspart (NovoLOG) injection (RAPID Given 04/22/2021 4:50 PM CDT 7 Units ACTING) Subcutaneous, DAILY WITH SUPPER, First dose on Thu04/21/21 at 1700, DOSE: 1 units per 8 grams of carbohydrate. Only chart total amount of units given. Do not give if pre-prandial glucose is less than 60 mg/dL. If given at mealtime, administer within 30 minutes of start of meal insulin aspart (NovoLOG) injection (RAPID Given 04/21/2021 6:31 PM CDT 8 Units ACTING) 8 Units, Subcutaneous, ONCE, On 04/21/21 at 1830, For 1 dose, If given at mealtime, administer within 30 minutes of start of meal insulin aspart (NovoLOG) injection (RAPID Given 04/22/2021 4 :48 PM CDT 10 Units ACTING) 1-10 Units, Subcutaneous, 3 TIMES DAILY BEFORE MEALS, First dose on 04/21/21 at 1830, Correction Scale - HIGH INSULIN RESISTANCE DOSING Do Not give Correction Insulin if Pre-Meal BG less than 140. For Pre-Meal BG 140 - 164 give 1 unit. For Pre-Meal BG 165 - 189 give 2 units. For Pre-Meal BG 190 - 214 give 3 units. For Pre-Meal BG 215 - 239 give 4 units. For Pre-Meal BG 240 - 264 give 5 units. For Pre-Meal BG 265 - 289 give 6 units. For Pre-Meal BG 290 - 314 give 7 units. For Pre-Meal BG 315 - 339 give 8 units. For Pre-Meal BG 340 - 364 give 9 units. For Pre-Meal BG greater than or equal to 365 give 10 units To be given with prandial insulin, and based on pre-meal blood glucose. Notify provider if glucose greater than or equal to 350 mg/dL after administration of correction dose. If given at mealtime, administer within 30 minutes of start of meal Given 04/22/2021 1:52 PM CDT 10 Units Given 04/22/2021 9:17 AM CDT 8 Units insulin aspart (NovoLOG) Given 04/21/2021 11:07 PM CDT 6 Units Abdominal Tissue injection (RAPID ACTING) 1-7 Units, Subcutaneous, AT BEDTIME, First dose on Thu04/21/21 at 2200, HIGH INSULIN RESISTANCE DOSING Do Not give Bedtime Correction Insulin if BG less than 200. For BG 200 - 224 give 1 units. For BG 225 - 249 give 2 units. For BG 250 - 274 give 3 units. For BG 275 - 299 give 4 units. For BG 300 - 324 give 5 units. For BG 325 - 349 give 6 units. For BG greater than or equal to 350 give 7 units. Notify provider if glucose greater than or equal to 350 mg/dL after administration of correction dose. If given at mealtime, administer within 30 minutes of start of meal insulin aspart (NovoLOG) injection (RAPID Given 04/25/2021 1 0:04 AM CDT 6 Units ACTING) Subcutaneous, EVERY MORNING BEFORE BREAKFAST, First dose on Thu04/23/21 at 0830, DOSE: 1 units per 5 grams of carbohydrate. Only chart total amount of units given. Do not give if pre-prandial glucose is less than 60 mg/dL. If given at mealtime, administer within 30 minutes of start of meal Given 04/24/2021 10:53 AM CDT 9 Units Given 04/23/2021 9:32 AM CDT 8 Units insulin aspart (NovoLOG) injection (RAPI D ACTING) Subcutaneous, DAILY WITH LUNCH, First do se on Thu04/23/21 at 1200, DOSE: 1 units per 5 grams of carbohydrate. Only chart total amount of units given. Do not give if pre-prandial glucose is less than 60 mg/ dL. If given at mealtime, administer within 30 minutes of start of meal insulin aspart (NovoLOG) injection (RAPID Given 04/24/2021 6:33 PM CDT 7 Units ACTING) Subcutaneous, DAILY WITH SUPPER, First dose on Thu04/23/21 at 1700, DOSE: 1 units per 5 grams of carbohydrate. Only chart total amount of units given. Do not give if pre-prandial glucose is less than 60 mg/dL. If given at mealtime, administer within 30 minutes of start of meal Given 04/23/2021 5:41 PM CDT 5 Units insulin aspart (NovoLOG) injection (RAPID Given 04/25/2021 1 0:04 AM CDT 2 Units ACTING) 1-10 Units, Subcutaneous, 3 TIMES DAILY BEFORE MEALS, First dose on Thu04/23/21 at 0830, Correction Scale - HIGH INSULIN RESISTANCE DOSING Do Not give Correction Insulin if Pre-Meal BG less than 140. For Pre-Meal BG 140 - 164 give 1 unit. For Pre-Meal BG 165 - 189 give 2 units. For Pre-Meal BG 190 - 214 give 3 units. For Pre-Meal BG 215 - 239 give 4 units. For Pre-Meal BG 240 - 264 give 5 units. For Pre-Meal BG 265 - 289 give 6 units. For Pre-Meal BG 290 - 314 give 7 units. For Pre-Meal BG 315 - 339 give 8 units. For Pre-Meal BG 340 - 364 give 9 units. For Pre-Meal BG greater than or equal to 365 give 10 units To be given with prandial insulin, and based on pre-meal blood glucose. Notify provider if glucose greater than or equal to 350 mg/dL after administration of correction dose. If given at mealtime, administer within 30 minutes of start of meal Given 04/24/2021 5:10 PM CDT 7 Units Given 04/24/2021 12:15 PM CDT 7 Units insulin aspart (NovoLOG) injection (RAPID Given 04/24/2021 9:15 PM CDT 4 Units ACTING) 1-7 Units, Subcutaneous, AT BEDTIME, First dose on Thu04/23/21 at 2200, HIGH INSULIN RESISTANCE DOSING Do Not give Bedtime Correction Insulin if BG less than 200. For BG 200 - 224 give 1 units. For BG 225 - 249 give 2 units. For BG 250 - 274 give 3 units. For BG 275 - 299 give 4 units. For BG 300 - 324 give 5 units. For BG 325 - 349 give 6 units. For BG greater than or equal to 350 give 7 units. Notify provider if glucose greater than or equal to 350 mg/dL after administration of correction dose. If given at mealtime, administer within 30 minutes of start of meal Given 04/23/2021 10:01 PM CDT 5 Units insulin glargine (LANTUS PEN) injection 10 Given 04/24 5:10 PM CDT 10 Units Units 10 Units, Subcutaneous, ONCE, On Thu04/24/21 at 1500, For 1 dose insulin glargine (LANTUS PEN) injection 15 Given 04/22 10:50 AM CDT 15 Units Units 15 Units, Subcutaneous, ONCE, On Thu04/22/21 at 0900, For 1 dose insulin glargine (LANTUS PEN) injection 40 Given 04/22 9:17 AM CDT 40 Units Units 40 Units, Subcutaneous, EVERY MORNING BEFORE BREAKFAST, First dose on Thu04/21/21 at 1000 Given 04/21/2021 11:24 AM CDT 40 Units insulin glargine (LANTUS PEN) injection 70 Given 04/24 8:49 AM CDT 70 Units Units 70 Units, Subcutaneous, EVERY MORNING BEFORE BREAKFAST, First dose (after last modification) on Thu04/23/21 at 0730 Given 04/23/2021 6:58 AM CDT 70 Units insulin glargine (LANTUS PEN) injection 74 Given 04/25 11:06 AM CDT 74 Units Units 74 Units, Subcutaneous, EVERY MORNING BEFORE BREAKFAST, First dose (after last modification) on Thu04/25/21 at 0930 lidocaine 1 % 0.1-1 mL Given 04/19/2021 6:56 AM CDT 1 mL 0.1-1 mL, Other, EVERY 1 HOUR PRN, mild pain with VAD insertion, Starting on Thu04/19/21 at 0544, MAX dose 1 mL subcutaneous OR intradermal along the side of the vein in divided doses as needed for VAD insertion. Do NOT give if patient has a history of allergy to any local anesthetic or any dimitris product. Do NOT use both lidocaine intradermal/subcutaneous injection and the lidocaine cream on the same site., Pre-procedure lisinopril (ZESTRIL) tablet 10 mg Given 04/22/2021 11:08 AM CDT 10 mg 10 mg, Oral, DAILY, First dose on Thu04/22/21 at 1100 lisinopril (ZESTRIL) tablet 20 mg Given 04/24/2021 8:40 AM CDT 20 mg 20 mg, Oral, DAILY, First dose (after last modification) on Thu04/23/21 at 0930 Given 04/23/2021 9:38 AM CDT 20 mg lisinopril (ZESTRIL) tablet 20 mg Given 04/24/2021 10:32 AM CDT 20 mg 20 mg, Oral, ONCE, On Thu04/24/21 at 1000, For 1 dose lisinopril (ZESTRIL) tablet 40 mg Given 04/25/2021 10:02 AM CDT 40 mg 40 mg, Oral, DAILY, First dose (after last modification) on Thu04/25/21 at 0900 magnesium hydroxide (MILK OF MAGNESIA) Given 04/23/2021 8:57 PM CDT 30 mLs suspension 30 mL 30 mL, Oral, DAILY PRN, constipation, Use if preventive measures (senna-docusate, docusate, and polyethylene glycol) are not effective., Starting on Thu04/19/21 at 1341, Shake well. Hold for loose stools. Given 04/22/2021 6:42 PM CDT 30 mLs melatonin tablet 10 mg Given 04/24/2021 9:06 PM CDT 10 mg 10 mg, Oral, AT BEDTIME PRN, sleep, Starting on Thu04/23/21 at 2335 Given 04/23/2021 11:43 PM CDT 10 mg methocarbamol (ROBAXIN) tablet 500 mg Given 04/20/2021 4:57 AM CDT 500 mg 500 mg, Oral, EVERY 6 HOURS PRN, muscle spasms, Starting on Thu04/19/21 at 1341, Hold for sedation. Given 04/19/2021 2:51 PM CDT 500 mg metoprolol tartrate (LOPRESSOR) half-tab Given 04/21/2021 9:58 A M CDT 12.5 mg 12.5 mg 12.5 mg, Oral, 2 TIMES DAILY, First dose on 04/20/21 at 0930, Hold for HR less than 60 and SBP less than 100 Given 04/20/2021 8:13 PM CDT 12.5 mg Given 04/20/2021 9:17 AM CDT 12.5 mg metoprolol tartrate (LOPRESSOR) half-tab Given 04/21/2021 10:47 AM CDT 12.5 mg 12.5 mg 12.5 mg, Oral, ONCE, On 04/21/21 at 1030, For 1 dose metoprolol tartrate (LOPRESSOR) tablet 2 5 mg Given 04/23/2021 9:28 AM CDT 25 mg 25 mg, Oral, 2 TIMES DAILY, First dose (after last modification) on 04/21/21 at 2100, Hold for HR less than 60 and SBP less than 100 Given 04/22/2021 8:34 PM CDT 25 mg Given 04/22/2021 9:16 AM CDT 25 mg midazolam (VERSED) injection 1 mg Given 04/19/2021 11:20 AM CDT 2 mg 1 mg, Intravenous, PRE-OP/PRE-PROCEDURE, Starting on Thu04/19/21 at 0613, For 2 doses, In Pre Op for anxiety/sedation. IF patient receives midazolam (VERSED) place patient on continuous pulse oximetry PRE OP. This drug may cause significant respiratory depression. Monitor respiratory status and vital signs carefully for 1 hour after each dose., Pre-procedure Given 04/19/2021 8:26 AM CDT 1 mg Given 04/19/2021 7:37 AM CDT 7 mg naloxone (NARCAN) injection 0.2 mg 0.2 mg, Intravenous, EVERY 2 MIN PRN, op ioid reversal, Starting on Thu04/19/21 at 1358, Administer intravenous route when available and notify [...] 2 MIN PRN, opioid reversal, Starting on Thu04/19/21 at 1358, Administer intramuscular if an int ravenous route [...] MIN PRN, op ioid reversal, Starting on Thu04/19/21 at 1358, Administer intravenous route when available and notify [...] 2 MIN PRN, opioid reversal, Starting on Thu04/19/21 at 1358, Administer intramuscular if an int ravenous route [...] have not improved after 4 naloxone doses. ondansetron (ZOFRAN) injection 4 mg Given 04/20/2021 10:13 AM CDT 4 mg 4 mg, Intravenous, EVERY 6 HOURS PRN, nausea, vomiting, Administer over 2-5 Minutes, Starting on Thu04/19/21 at 1341, This is Step 1 of nausea and vomiting management. If nausea not resolved in 15 minutes, go to Step 2 prochlorperazine (COMPAZINE). Irritant. Given 04/20/2021 5:12 AM CDT 4 mg Given 04/19/2021 7:27 PM CDT 4 mg ondansetron (ZOFRAN-ODT) ODT tab 4 mg 4 mg, Oral, EVERY 6 HOURS PRN, nausea, v omiting, Starting on Thu04/19/21 at 1341, This is Step 1 of nausea and vomiting management. If n ausea not resolved in 15 minutes, go to Step 2 prochlorperazine (COMPAZINE). Do not push through foil backing. Peel back foil and gently remove. Place on to ngue immediately. Administration with liquid unnecessary W ith dry hands, peel back foil backing and gently remove tablet. Do not push oral d isintegrating tablet through foil backing. Administer immediately on tongue and oral disintegrati ng tablet dissolves in seconds, then swallow with saliva. Liquid not required . oxyCODONE (ROXICODONE) tablet 10 mg Given 04/20/2021 4:57 AM CDT 10 mg 10 mg, Oral, EVERY 4 HOURS PRN, moderate to severe pain, Starting on Thu04/19/21 at 1341, Hold oral PRN dose for analgesic side effects. Notify provider to assess for uncontrolled pain or analgesic side effects. Hold while on IV AEROBICS INSTRUCTOR or with regular IV opioid dosing. Given 04/19/2021 11:57 PM CDT 10 mg Given 04/19/2021 3:22 PM CDT 10 mg oxyCODONE (ROXICODONE) tablet 5-10 mg 5-10 mg, Oral, EVERY 4 HOURS PRN, modera te to severe pain, Starting on Thu04/23/21 at 1146, Hold oral PRN dose for analgesi c side effects. Notify provider to assess for uncontrolled pain or analgesic side effects. Hold while on IV AEROBICS INSTRUCTOR or with regular IV opioid dosing. pantoprazole (PROTONIX) EC tablet 40 mg Given 04/25/2021 9:56 AM CDT 40 mg 40 mg, Oral, DAILY, First dose on Thu04/19/21 at 1400, DO NOT CRUSH. Given 04/24/2021 8:40 AM CDT 40 mg Given 04/23/2021 9:28 AM CDT 40 mg phenylephrine Restarted 04/20/2021 4:25 AM 0.3 mcg/kg/min 8.8 mL/hr (GRAYSON-SYNEPHRINE) 50 mg in CDT NaCl 0.9 % 250 mL infusion 0.1-4 mcg/kg/min ? 98 kg (2.94-117.6 mL/hr, rounded to 2.9-117.6 mL/hr), Intravenous, CONTINUOUS PRN, as directed in admin instructions, Starting on Thu04/19/21 at 1341, Starting dose: 0.5 mcg/kg/min or continue dose from surgery. Adjustment increase/decrease: 0.2 mcg/kg/min Adjust Every: 5 minutes Goal: MAP GREATER than 65 mmHg. Use minimum dose required to achieve/maintain goal. Notify prescriber: if higher doses are required to achieve blood pressure goals. If multiple infusions are ordered with the same parameters, nurse to clarify order of titration with the CV Surgery provider and document this in the MAR comments Product Admin Instructions: Restricted to critical care. Vesicant. Recommend administration via a CENTRAL LINE. Rate/Dose Change 04/20/2021 12:30 AM CDT 0.3 mcg/kg/min 8.8 mL/hr Rate/Dose Change 04/19/2021 9:25 PM CDT 0.4 mcg/kg/min 11.8 mL/hr polyethylene glycol (MIRALAX) Packet 17 g Given 04/24/2021 8:40 AM CDT 17 g 17 g, Oral, DAILY, First dose on Thu04/20/21 at 0900, To prevent constipation. Mixed prescribed dose in 8 ounces of water, juice or soda. Administer daily starting at 0900 on POD 1. Hold for loose stools. 1 Packet = 17 grams. Mix each gram with at least 1/2 ounce (15 mL) of water - 8 ounces for 17 g dose, 4 ounces for 8.5 g dose, 2 ounces for 4 g dose. Follow with the same volume of water. Hold for loose stools. Given 04/23/2021 9:28 AM CDT 17 g Given 04/22/2021 9:17 AM CDT 17 g potassium & sodium phosphates Given 04/25/2021 10:02 AM CDT 1 pa cket (NEUTRA-PHOS) Packet 1 packet 1 packet, Oral, 3 TIMES DAILY, First dose on Thu04/24/21 at 1600, For 3 doses, Phosphorus level 2-2.4 Administer 1 packet of oral phosphorus replacement x 3 doses and recheck phosphorus level next AM. Ordered from the Phosphorus replacement order set., Phosphorus Replacement: Phosphorus level 2-2.4 and CrCl GREATER than or EQUAL to 40 mL/min., Recheck: Phosphorus level next AM Given 04/24/2021 9:06 PM CDT 1 packet Given 04/24/2021 3:33 PM CDT 1 packet propofol (DIPRIVAN) Rate/Dose Change 04/19/2021 3:24 20 mcg/kg/min 11 .8 mL/hr injection 10 mg/mL vial PM CDT Intravenous, CONTINUOUS PRN, Starting on Thu04/19/21 at 1324, Anesthesia Intra-op Rate/Dose Change 04/19/2021 2:22 PM CDT New Bag 04/19/2021 1:24 PM CDT 50 mcg/kg/min 29.4 mL/hr rosuvastatin (CRESTOR) tablet 40 mg Given 04/24/2021 9:07 PM CDT 40 mg 40 mg, Oral, EVERY EVENING, First dose on Thu04/19/21 at 2000 Given 04/23/2021 8:57 PM CDT 40 mg Given 04/22/2021 8:35 PM CDT 40 mg senna-docusate (SENOKOT-S/PERICOLACE) Given 04/24/2021 9:06 PM C DT 1 tablet 8.6-50 MG per tablet 1 tablet 1 tablet, Oral, 2 TIMES DAILY, First dose on Thu04/19/21 at 2100, To prevent constipation. Hold for loose stools Hold for loose stools. Given 04/24/2021 8:40 AM CDT 1 tablet Given 04/23/2021 8:57 PM CDT 1 tablet sertraline (ZOLOFT) tablet 50 mg Given 04/25/2021 9:57 AM CDT 50 mg 50 mg, Oral, DAILY, First dose on Thu04/20/21 at 1430 Given 04/24/2021 8:40 AM CDT 50 mg Given 04/23/2021 9:28 AM CDT 50 mg sodium chloride (PF) 0.9% PF flush 3 mL Given 04/25/2021 5:17 AM CDT 3 mLs 3 mL, Intracatheter, EVERY 8 HOURS, First dose on Thu04/19/21 at 1400, to lock peripheral IV dormant line Given 04/24/2021 9:07 PM CDT 3 mLs Given 04/24/2021 3:33 PM CDT 3 mLs sodium chloride (PF) 0.9% PF flush 3 mL Given 04/21/2021 12:43 PM CDT 3 mLs 3 mL, Intracatheter, EVERY 1 MIN PRN, line flush, other, to ensure patency or to lock dormant line, Starting on Thu04/19/21 at 1341 sodium chloride 0.9% infusion New Bag 04/22/2021 5:56 PM CDT 10 mL/hr at 10-30 mL/hr, Intravenous, CONTINUOUS, TKO, Starting on Thu04/19/21 at 1630, Until Thu04/23/21 at 1148 Rate/Dose Verify 04/20/2021 8:00 AM CDT 10 mL/hr New Bag 04/19/2021 4:16 PM CDT 10 mL/hr sodium phosphate (NaPHOS) 15 mMol in 250 New Bag 04/19/2021 4: 44 PM CDT 15 mmol mL D5W PREMADE infusion 15 mmol, Intravenous, ONCE, Administer over 4 Hours, On Thu04/19/21 at 1630, For 1 dose, Phosphorus level 2-2.4 Recheck phosphorus level next AM. Ordered from the Phosphorus replacement order set. Each mmol of phosphate provides 1.33 mEq of Sodium. Multiply the patient's phosphate dose by 1.33 to determine the amount of sodium in this dose., Phosphorus Replacement: Phosphorus level 2-2.4 and CrCl GREATER than or EQUAL to 40 mL/min., Recheck: Phosphorus level next AM documented in this encounter Active and Recently Administered Medications Times are shown in CDT. Scheduled Medication Order 04/23/2021 04/24/2021 04/25/2021 amLODIPine (NORVASC) tablet 10 mg 0928 (Given - Provider: Ryder Ramirez RN) 0840 (Given - Provider: Maye Ramirez RN) 1002 (Given - Provider: Enriqueta Tilley) 10 mg, Oral, DAILY, First dose (after last modificatio n) on 04/22/21 at 0900 aspirin (ASA) chewable tablet 162 mg (CANCELED) 0928 ( Given - Provider: Maye Ramirez RN) 162 mg, Oral or NG Tube, DAILY, First do se on 04/20/21 at 0900, Chest tube output less than 300 mL/8 hours aspirin (ASA) chewable tablet 324 mg 084 0 (Given - Provider: Maye Ramirez RN) 1000 (Given - Provider: Enriqueta Tilley) 324 mg, Oral or NG Tube, DAILY, First do se (after last modification) on Thu04/24/21 at 0900, Chest tube output less than 300 mL/8 hours carvedilol (COREG) tablet 6.25 mg 1741 (Given - Provider: Ryder Ramirez RN) 0840 (Given - Provider: Maye Ramirez RN)1710 (Given - Provider: Maye Ramirez RN) 0958 (Given - Provider: Enriqueta Tilley) 6.25 mg, Oral, 2 TIMES DAILY WITH MEALS, First dose on Thu04/23/21 at 1800, Hold is sbp is < or = 90 mmHg or HR is < or = 60 bpm cloNIDine (CATAPRES) tablet 0.1 mg 1215 (Given - Provider: Maye Ramirez RN)2107 (Given - Provider: Chelo Mendieta RN) 1002 (Given - Provider: Enriqueta Tilley) 0.1 mg, Oral, 2 TIMES DAILY, First dose on Thu04/24/21 at 1000 ferrous sulfate CR tablet 140 mg 1215 (Given - P rovider: Maye Ramirez RN) 0956 (Given - Provider: Enriqueta Tilley) 140 mg, Oral, DAILY, First dose on Thu at 0900, 45 mg of Elemental iron. Formulary sub for MANAGED CARE ANALYST iron. furosemide (LASIX) injection 20 mg (COMPLETED) 937 (G iven - Provider: Maye Ramirez RN) 20 mg, Intravenous, ONCE, Administer ove r 1-3 Minutes, On Thu04/23/21 at 0930, For 1 dose, Give after blood gabapentin (NEURONTIN) capsule 600 mg 09 (Given - Pr ovider: Maye Ramirez RN)2056 (Given - Provider: Annie Renae RN) 2105 (Given - Provider: Chelo Mendieta RN)2311 (Given - Provider: Chelo Mendieta RN) 600 mg, Oral, 2 TIMES DAILY, First dose on Thu04/19/21 at 2100 heparin ANTICOAGULANT injection 5,000 Units 0429 (Give n - Provider: Chelo Mendieta RN)1356 (Given - Provider: Maye Ramirez RN)2057 (Given - Provider: Annie Renae RN) 0443 (Given - Provider: Annie Renae RN) 1215 (Given - Provider: Maye Ramirez RN)2107 (Given - Provider: Chelo Mendieta RN) 0506 (Given - Provider: Chelo Mendieta RN)1200 (Canceled Entry - Provider: Orders Generic Provider - Comment: Automatically canceled at discontinue of medication order) 5,000 Units, Subcutaneous, EVERY 8 HOURS , First dose on Thu04/20/21 at 1200, HOLD if platelet count falls below 70,000/microliter and notify provider. High concentration heparin. Not for line flush or cath care. insulin aspart (NovoLOG) injection (RAPID ACTING) 0932 (Given - Provider: Maye Ramirez RN - Comment: [id number]) 1053 (Given - Provider: Maye Ramirez RN - Comment: 45) 1004 (Given - Provider: Enriqueta Tilley - Comment: 33 carb) Subcutaneous, EVERY MORNING BEFORE BREAK FAST, First dose on Thu04/23/21 at 0830, DOSE: 1 units per 5 grams of carbohydrate. Only chart total amount of units given. Do not give if pre-prandial glucose is less than 60 mg/dL. If given at mealtim e, administer within 30 minutes of start of meal insulin aspart (NovoLOG) injection (RAPID ACTING) 1317 (Not Given - Provider: Maye Ramirez RN - Reason: Contraindicated - Comment: pt not ordering lunch today) 1317 (Not Given - Provider: Maye duque RN - Reason: Order parameters not met - Comment: pt did not eat lunch) 1200 (Canceled Entry - Provider: Orders Generic Provider - Comment: Automatically canceled at discontinue of medication order) Subcutaneous, DAILY WITH LUNCH, First do se on Thu04/23/21 at 1200, DOSE: 1 units per 5 grams of carbohydrate. Only chart total amount of units given. Do not give if pre-prandial glucose is less than 60 mg/dL. If given at mealtime, administer within 30 minutes of sta rt of meal insulin aspart (NovoLOG) injection (RAPID ACTING) 1741 (Given - Provider: Maye Ramirez RN) 1833 (Given - Provider: Maye Ramirez RN) Subcutaneous, DAILY WITH SUPPER, First d ose on Thu04/23/21 at 1700, DOSE: 1 units per 5 grams of carbohydrate. Only chart total amount of units given. Do not give if pre-prandial glucose is less than 60 mg/dL. If given at mealtime, administer within [address] art of meal insulin aspart (NovoLOG) injection (RAPID ACTING) 0931 (Not Given - Provider: Maye Ramirez RN - Reason: Order parameters not met - Comment: [phone] (Given - Provider: Maye Ramirez RN)1707 (Given - Provider: Maye Ramirez RN - Comment: [phone] 0846 (Given - Provider: Maye Ramirez RN - Comment: [phone] (Given - Provider: Maye Ramirez RN)1710 (Given - Provider: Maye Ramirez RN - Comment: [phone]) 1004 (Given - Provider: Enriuqeta Tilley)1200 (Canceled Entry - Provider: Orders Generic Provider - Comment: Automatically canceled at discontinue of medication order) 1-10 Units, Subcutaneous, 3 TIMES DAILY BEFORE MEALS, First dose on Thu04/23/21 at 0830, Correction Scale - HIGH INSULIN RESISTANCE DOSING Do Not give Correction Insulin if Pre-Meal BG less than 140. Fo r Pre-Meal BG 140 - 164 give 1 unit. For Pre-Meal BG 165 - 189 give 2 units. For Pre-Meal BG 190 - 214 give 3 units. For Pre-Meal BG 215 - 239 give 4 units. For Pre-Meal BG 240 - 264 give 5 units. For P re-Meal BG 265 - 289 give 6 units. For P re-Meal BG 290 - 314 give 7 units. For Pre-Meal BG 315 - 339 give 8 units. For Pre-Meal BG 340 - 364 give 9 units. For Pre-Meal BG greater than or equal to 365 gi ve 10 units To be given with prandial in sulin, and based on pre-meal blood glucose. Notify provider if glucose greater than or equal to 350 mg/dL after administration of correction dose. If given at hector ltime, administer within 30 minutes of start of meal insulin aspart (NovoLOG) injection (RAPID ACTING) 2200 (Given - Provider: Annie Renae RN) 211 (Given - Provider: Chelo Mendieta RN - Comment: 29 8 mg/dl) 1-7 Units, Subcutaneous, AT BEDTIME, Fir st dose on Thu04/23/21 at 2200, HIGH INSULIN RESISTANCE DOSING Do Not give Bedtime Correction Insulin if BG less than 200. For BG 200 - 224 give 1 units. For BG 2 25 - 249 give 2 units. For BG 250 - 274 give 3 units. For BG 275 - 299 give 4 units. For BG 300 - 324 give 5 units. For BG 325 - 349 give 6 units. For BG greater than or equal to 350 give 7 units. Notif y provider if glucose greater than or eq ual to 350 mg/dL after administration of correction dose. If given at mealtime, administer within 30 minutes of start of meal insulin glargine (LANTUS PEN) injection 10 Units (COMPLETED) 1710 (Given - Provider: Maye Ramirez RN) 10 Units, Subcutaneous, ONCE, On Thu04/24/21 at 1500, For 1 dose insulin glargine (LANTUS PEN) injection 70 Units (CAN ELED) 0658 (Given - Provider: Chelo Mendieta RN) 0849 (Given - Provider: Maye Ramirez RN) 70 Units, Subcutaneous, EVERY MORNING BE FORE BREAKFAST, First dose (after last modification) on Thu04/23/21 at 0730 insulin glargine (LANTUS PEN) injection 74 Units 1106 (Given - Provider: Enriqueta Tilley) 74 Units, Subcutaneous, EVERY MORNING BE FORE BREAKFAST, First dose (after last modification) on Thu04/25/21 at 0930 lisinopril (ZESTRIL) tablet 20 mg (CANCELED) 0938 (Giv en - Provider: Maye Ramirez RN) 0840 (Given - Provider: Maye Ramirez RN) 20 mg, Oral, DAILY, First dose (after last modificatio n) on Thu04/23/21 at 0930 lisinopril (ZESTRIL) tablet 20 mg (COMPLETED) 1032 (Given - Provider: Maye Ramirez RN) 20 mg, Oral, ONCE, On Thu04/24/21 at 1000, For 1 dose lisinopril (ZESTRIL) tablet 40 mg 1002 (Given - Provider: Enriqueta Tilley) 40 mg, Oral, DAILY, First dose (after last modificatio n) on Leana 04/25/21 at 0900 metoprolol tartrate (LOPRESSOR) tablet 25 mg (CANCELED ) 927 (Given - Provider: Maye Ramirez RN) 25 mg, Oral, 2 TIMES DAILY, First dose ( after last modification) on 04/21/21 at 2100, Hold for HR less than 60 and SBP less than 100 pantoprazole (PROTONIX) EC tablet 40 mg 927 (Given - Provider: Maye Ramirez RN) 08 (Given - Provider: Maye Ramirez RN) 0956 (Gi krzysztof - Provider: Enriqueta Tilley) 40 mg, Oral, DAILY, First dose on Thu04/19/21 at 1400, DO NOT CR US. polyethylene glycol (MIRALAX) Packet 17 g 927 (Given - Provider: Maye Ramirez RN) 08 (Given - Provider: Maye Ramirez RN) 1009 (No t Given - Provider: Enriqueta Tilley - Reason: Patient/family refused) 17 g, Oral, DAILY, First dose on Sat 04/10 08/30 at 0900, To prevent constipation. Mixed prescribed dose in 8 ounces of water, juice or soda. Administer daily starting at 0900 on POD 1. Hold for loose stool s. 1 Packet = 17 grams. Mix each gram wi th at least 1/2 ounce (15 mL) of water - 8 ounces for 17 g dose, 4 ounces for 8.5 g dose, 2 ounces for 4 g dose. Follow with the same volume of water. Hold for loose stools. potassium & sodium phosphates (NEUTRA-PHOS) Packet 1 packet (COMPLETED) 7165 (Given - Provider: Maye Ramirez RN)2105 (Given - Provider: Chelo Mendieta RN) 1002 (Given - Provider: Enriqueta Tilley) 1 packet, Oral, 3 TIMES DAILY, First dos e on Thu04/24/21 at 1600, For 3 doses, Phosphorus level 2-2.4 Administer 1 packet of oral phosphorus replacement x 3 doses and recheck phosphorus level next AM. O rdered from the Phosphorus replacement o rder set., Phosphorus Replacement: Phosphorus level 2-2.4 and CrCl GREATER than or EQUAL to 40 mL/min., Recheck: Phosphorus level next AM rosuvastatin (CRESTOR) tablet 40 mg 2056 (Given - Provider: Annie Renae RN) 2106 (Given - Provider: Chelo Mendieta, LETICIA) 40 mg, Oral, EVERY EVENING, First dose on Thu04/19/21 at 2000 senna-docusate (SENOKOT-S/PERICOLACE) 8.6-50 MG per ta blet 1 tablet 0928 (Given - Provider: Maye Ramirez RN)2056 (Given - Provider: Annie Renae RN) 0840 (Given - Provider: Maye Ramirez RN)2105 (Given - Provider: Chelo Mendieta, LETICIA) 1009 (Not Given - Provider: Enriqueta Jc per - Reason: Patient/family refused) 1 tablet, Oral, 2 TIMES DAILY, First dos e on Thu04/19/21 at 2100, To prevent constipation. Hold for loose stools Hold for loose stools. sertraline (ZOLOFT) tablet 50 mg 927 (Given - Provider: Devaughn Ramirez RN) 0840 (Given - Provider: Maye Ramirez RN) 0957 (Given - Provider: Enriqueta Tilley) 50 mg, Oral, DAILY, First dose on Thu04/20/21 at 1430 sodium chloride (PF) 0.9% PF flush 3 mL 0600 (Canceled Entry - Provider: Eitan Murcia RN)1523 (Given - Provider: Maye Ramirez RN)2058 (Given - Provider: Annie Renae RN)2100 (Canceled Entry - Provider: Annie Renae RN) 0443 (Given - Provider: Annie Renae RN)0521 (Canceled Entry - Provider: Annie Renae RN)1533 (Given - Provider: Maye Ramirez RN)210 (Given - Provider: Chelo Mendieta, LETICIA - Comment: PIV) 0517 (Given - Provider: Chelo Mendieta RN )1400 (Canceled Entry - Provider: Orders Generic Provider - Comment: Automatically canceled at discontinue of medication order) 3 mL, Intracatheter, EVERY 8 HOURS, Firs t dose on Thu04/19/21 at 1400, to lock peripheral IV dormant line Continuous Medication Order 04/23/2021 04/24/2021 04/25/2021 insulin 1 unit/mL in saline (NovoLIN, Hu muLIN Regular) drip - ADULT IV Infusion (CANCELED) 0011 (Rate/Dose Change - Provider: Chelo Mendieta RN - Comment: 151 mg/dl; decreased 36 from prev BG)0108 (Rate/Dose Change - Provider: Chelo Mendieta RN - Comment: 133 mg/dl) Intravenous, at 0-24 mL/hr, CONTINUOUS, Starting on Thu04/22/21 at 1730, Initiate drip with Algorithm #1 (see hyperlink to protocol). Start protocol only if glucose greater than 150 mg/dL. Maintain gluc 0207 (Rate/Dose Verify - Provider: Chelo Mendieta RN - Comment: 130 mg/dl; no change in rate)0315 (Rate/Dose Change - Provider: Eitan Murcia RN)0425 (Stopped - Provider: Chelo Mendieta RN - Comment: 77 mg/dl) ose level between 100-150 mg/dL. Discont inue when glycemic control achieved and transitioning to SQ insulin, or Insulin therapy no longer required. When blood glucose has stabilized and patient is luis ating PO intake, call provider for trans ition to SQ insulin. For Infusion Instructions, Click on ADULT DRIP PROTOCOL hyperlink below. PRN Medication Order 04/23/2021 04/24/2021 04/25/2021 acetaminophen (TYLENOL) tablet 650 mg 2200 (Given - Provider: Thea Renae RN) 650 mg, Oral, EVERY 4 HOURS PRN, other, For optimal non-opioid multimodal pain management to improve pain control., Starting on Thu04/22/21 at 0000, May give first dose 4 hours after last scheduled dose of acetaminophen (TYLENOL). Maximum esme taminophen dose from all sources = 75 mg/kg/day not to exceed 4 grams/day. dextrose 50 % injection 25-50 mL(Linked Group 1) 25-50 mL, Intravenous, EVERY 15 MIN PRN, low blood sugar, Administer over 1-5 Minutes, Starting on 04/21/21 at 1822, Use if have IV access, BG less [...] May repeat x 1 only, Starting on 04/21/21 at 1822, May give SQ or IM. ONLY use glucagon IF patient has NO IV access AND is UNABLE to swallow AND blood glucose is LESS than or EQUAL to 50 mg/dL. glucose gel 15-30 g(Linked Group 1) 15-30 g, Oral, EVERY 15 MIN PRN, low blo od sugar, Starting on 04/21/21 at 1822, Give first dose for initial blood glucose [...] O flowsheet. hydrALAZINE (APRESOLINE) injection 10 mg 1522 (Given - Provider: Maye Ramirez RN) 0215 (Given - Provider: Annie Renae RN) 2324 (Given - Provider: Chelo Mendieta RN) 0515 (Given - Provider: Chelo Mendieta RN ) 10 mg, Intravenous, EVERY 30 MIN PRN, hi gh blood pressure, Systolic Blood Pressure greater than 140 mmHg or Diastolic Blood Pressure greater than 90 mmHg, Administer over 1 Minutes, Starting on Thu04/19/21 at 1341 HYDROmorphone (DILAUDID) injection 0.2 mg(Linked Group 2) 0.2 mg, Intravenous, EVERY 2 HOURS PRN, other, moderate pain (pain rating 4-6) IF patient unable to take oral pain medication or pain not controlled with oral analgesics, Starting on Thu04/19/21 at 1341 , Hold IV PRN opioid dose for analgesic side effects. Notify provider to assess for uncontrolled pain or analgesic side effects. HYDROmorphone (DILAUDID) injection 0.4 mg(Linked Group 2) 0.4 mg, Intravenous, EVERY 2 HOURS PRN, other, severe pain (pain rating 7-10) IF patient unable to take oral pain medication or pain not controlled with oral analgesics, Starting on Thu04/19/21 at 1341, Hold IV PRN opioid dose for analgesic s florecita effects. Notify provider to assess for uncontrolled pain or analgesic side effects. lidocaine (LMX4) cream Topical, EVERY 1 HOUR PRN, pain, with VA D insertion, Starting on Thu04/19/21 at 1341, Apply at least 30 minutes prior to [...] mild pain with VAD insertion, Starting on Thu04/19/21 at 1341, MAX dose 1 mL subcutaneous OR intradermal along the side of the vein in divided doses as needed for VAD insertion. Do NOT give if patient has a history of allergy to any local anesthetic or any dimitris product. Do NOT use both lidocaine intradermal/subcutaneous injection and the lidocaine cream on the same site. magnesium hydroxide (MILK OF MAGNESIA) suspension 30 m L 2057 (Given - Provider: Annie Renae RN) 30 mL, Oral, DAILY PRN, constipation, Us e if preventive measures (senna- docusate, docusate, and polyethylene glycol) are not effective., Starting on Thu04/19/21 at 1341, Shake well. Hold for loose stools. melatonin tablet 10 mg 2343 (Given - Provider: Annie Renae, RN) 2106 (Given - Provider: Chelo Mendieta RN) 10 mg, Oral, AT BEDTIME PRN, sleep, Starting on Thu04/23/21 at 2 335 methocarbamol (ROBAXIN) tablet 500 mg 500 mg, Oral, EVERY 6 HOURS PRN, muscle spasms, Starting on Thu04/19/21 at 1341, Hold for sedation. naloxone (NARCAN) injection 0.2 mg(Linked Group 3) 0.2 mg, Intravenous, EVERY 2 MIN PRN, op ioid reversal, Starting on Thu04/19/21 at 1358, Administer intravenous route when available and notify provider when administered. For unintended sedation or resp iratory depression if all of the below c riteria are met: ~ respiratory rate LESS than or EQUAL to 8. ~SaO2 less than 92% and or/end-tidal CO2 is greater than 50. ~ the patient is receiving an opioid, edmonds s unintended sedations assessed as RASS (-3), and [...] 2, then every 30 minutes x 2, the n every 1 hour x 1 after each naloxone d ose. Consider transfer to ICU if patient respiratory parameters have not improved after 4 naloxone doses. naloxone (NARCAN) injection 0.2 mg(Linked Group 3) 0.2 mg, Intramuscular, EVERY 2 MIN PRN, opioid reversal, Starting on Thu04/19/21 at 1358, Administer intramuscular if an intravenous route is not available and notify provider when administered. For uni ntended sedation or respiratory depressi on if all of the below criteria are met: ~ respiratory rate LESS than or EQUAL to 8. ~SaO2 less than 92% and or/end- tidal CO2 is greater than 50. ~ the patient is receiving an opioid, has unintended sed ations assessed as RASS (-3), and is currently not on mechanical ventilation. RASS scale moderate (-3) is movement or eye opening to voice but no eye contact. Pat ient Monitoring Once the patient has dem onstrated a response to the naloxone, continue to monitor respiratory rate, depth, oxygen saturation and end-tidal CO2 (if available) every 15 minutes x 2, then e very 30 minutes x 2, then every 1 hour x 1 after each naloxone dose. Consider transfer to ICU if patient respiratory parameters have not improved after 4 naloxone doses. naloxone (NARCAN) injection 0.4 mg(Linked Group 3) 0.4 mg, Intravenous, EVERY 2 MIN PRN, op ioid reversal, Starting on Thu04/19/21 at 1358, Administer intravenous route when available and notify provider when administered. For unintended sedation or resp iratory depression if all of the below c riteria are met: ~ respiratory rate LESS than or EQUAL to 8. ~ SaO2 less than 92% and or/end-tidal CO2 is greater than 50. ~ the patient is receiving an opioid, h as unintended sedation assessed as RASS (-4) or (-5) and patient is currently not on mechanical ventilation. RASS scale (-4) is deep sedation with no response to voice but movement or eye opening to phy sical stimulation. RASS scale (-5) is un arousable. Patient Monitoring Once the patient has demonstrated a response to the naloxone, continue to monitor respiratory rate, depth, oxygen saturation and end -tidal CO2 (if available) every 15 minut es x 2, then every 30 minutes x 2, then every 1 hour x 1 after each naloxone dose. Consider transfer to ICU if patient respiratory parameters have not improved after 4 naloxone doses. naloxone (NARCAN) injection 0.4 mg(Linked Group 3) 0.4 mg, Intramuscular, EVERY 2 MIN PRN, opioid reversal, Starting on Thu04/19/21 at 1358, Administer intramuscular if an intravenous route is not available and notify provider when administered. For uni ntended sedation or respiratory depressi on if all of the below criteria are met: ~ respiratory rate LESS than or EQUAL to 8. ~ SaO2 less than 92% and or/end- tidal CO2 is greater than 50. ~ the patient i s receiving an opioid, has unintended se dation assessed as RASS (-4) or (-5) and patient is currently not on mechanical ventilation. RASS scale (-4) is deep sedation with no response to voice but moveme nt or eye opening to physical stimulatio n. RASS scale (-5) is unarousable. Patient Monitoring Once the patient has demonstrated a response to the naloxone, continue to monitor respiratory rate, depth, o xygen saturation and end-tidal CO2 (if a vailable) every 15 minutes x 2, then every 30 minutes x 2, then every 1 hour x 1 after each naloxone dose. Consider transfer to ICU if patient respiratory parameters have not improved after 4 naloxone doses. ondansetron (ZOFRAN) injection 4 mg(Linked Group 4) 4 mg, Intravenous, EVERY 6 HOURS PRN, na usea, vomiting, Administer over 2-5 Minutes, Starting on Thu04/19/21 at 1341, This is Step 1 of nausea and vomiting management. If nausea not resolved in 15 minut es, go to Step 2 prochlorperazine (COMPAZINE). Irritant. ondansetron (ZOFRAN-ODT) ODT tab 4 mg(Linked Group 4) 4 mg, Oral, EVERY 6 HOURS PRN, nausea, v omiting, Starting on Thu04/19/21 at 1341, This is Step 1 of nausea and vomiting management. If nausea not resolved in 15 minutes, go to Step 2 prochlorperazine (C OMPAZINE). Do not push through foil back ing. Peel back foil and gently remove. Place on tongue immediately. Administration with liquid unnecessary With dry hands, peel back foil backing and gently remov e tablet. Do not push oral disintegratin g tablet through foil backing. Administer immediately on tongue and oral disintegrating tablet dissolves in seconds, then swallow with saliva. Liquid not required. oxyCODONE (ROXICODONE) tablet 5-10 mg 5-10 mg, Oral, EVERY 4 HOURS PRN, modera te to severe pain, Starting on Thu04/23/21 at 1146, Hold oral PRN dose for analgesic side effects. Notify provider to assess for uncontrolled pain or analgesic si de effects. Hold while on IV [employer] or with regular IV opioid dosin g. sodium chloride (PF) 0.9% PF flush 3 mL 3 mL, Intracatheter, EVERY 1 MIN PRN, li ne flush, other, to ensure patency or to lock dormant line, Starting on Thu04/19/21 at 1341 [facility] Order Group 1: glucose gel 15-30 gJump to med 15-30 g, Oral, EVERY 15 MIN PRN, low blo od sugar, Starting on 04/21/21 at 1822
Give first dose for initial blood glucose [...] sugar, Administer over 1-5 Minutes, Starting on 04/21/21 at 1822
Use if have IV access, BG less [...] May repeat x 1 only, Starting on Thu04/21/21 at 1822
May give SQ or IM. ONLY use glucagon IF patient has NO IV access AND is UNABLE to swa llow AND blood glucose is LESS than or E QUAL to 50 mg/dL.
Group 2: HYDROmorphone (DILAUDID) injection 0.2 mgJump to med 0.2 mg, Intravenous, EVERY 2 HOURS PRN, other, moderate pain (pain rating 4-6) IF patient unable to take oral pain medication or pain not controlled with oral analgesics, Starting on Thu04/19/21 at 1341
Hold IV PRN opioid dose for analgesi c side effects. Notify provider to assess for uncontrolled pain or analgesic side effects.
Or HYDROmorphone (DILAUDID) injection 0.4 mgJump to med 0.4 mg, Intravenous, EVERY 2 HOURS PRN, other, severe pain (pain rating 7-10) IF patient unable to take oral pain medication or pain not controlled with oral analgesics, Starting on Thu04/19/21 at 1341& lt;br>Hold IV PRN opioid dose for analge sic side effects. Notify provider to assess for uncontrolled pain or analgesic side effects.
Group 3: naloxone (NARCAN) injection 0.2 mgJump to med 0.2 mg, Intravenous, EVERY 2 MIN PRN, op ioid reversal, Starting on Thu04/19/21 at 1358
Administer intravenous route when available and notify provider when administered. For unintended sedation or respiratory depression if a ll of the below criteria are met: ~ respiratory rate LESS than or EQUAL to 8. ~SaO2 less than 92% and or/end- tidal CO2 is greater than 50.& nbsp;~ the patient is receiving an opioi d, has unintended sedations assessed as RASS (-3), and is currently not on mechanical ventilation. RASS scale moderate (-3) is movement or eye opening to voice but no eye contact.&nbs p; Patient Monitoring Once the patient has demonstrated a response to the naloxone, continue to monitor respiratory rate, depth, oxygen satu ration and end-tidal CO2 (if available) every 15 minutes x 2, then every 30 minutes x 2, then every 1 hour x 1 after each naloxone dose. Consider transfer to ICU if patient respirator y parameters have not improved after 4 n aloxone doses.
Or naloxone (NARCAN) injection 0.4 mgJump to med 0.4 mg, Intravenous, EVERY 2 MIN PRN, op ioid reversal, Starting on Thu04/19/21 at 1358
Administer intravenous route when available and notify provider when administered. For unintended sedation or respiratory depression if a ll of the below criteria are met: ~ respiratory rate LESS than or EQUAL to 8. ~ SaO2 less than 92% and or/end- tidal CO2 is greater than 50.& nbsp;~ the patient is receiving an opioi d, has unintended sedation assessed as RASS (-4) or (-5) and patient is currently not on mechanical ventilation. RASS scale (-4) is deep sedati on with no response to voice but movemen t or eye opening to physical stimulation. RASS scale (-5) is unarousable. Patient Monitoring On ce the patient has demonstrated a respon se to the naloxone, continue to monitor respiratory rate, depth, oxygen saturation and end-tidal CO2 (if available) every 15 minutes x 2, then every 30 minutes x 2, then every 1 hour x 1 after each nalo xone dose. Consider transfer to ICU if patient respiratory parameters have not improved after 4 naloxone doses.
Or naloxone (NARCAN) injection 0.2 mgJump to med 0.2 mg, Intramuscular, EVERY 2 MIN PRN, opioid reversal, Starting on Thu04/19/21 at 1358
Administer intramuscular if an intravenous route is not available and notify provider when administered. For unintended sedation or respira tory depression if all of the below criteria are met: ~ respiratory rate LESS than or EQUAL to 8. ~SaO2 less than 92% and or/end-tidal CO2 is greater than 50. ~ the patient i s receiving an opioid, has unintended sedations assessed [...] after each naloxone dose. Consider transfer to [facility] if patient respiratory parameters hav e not improved after 4 naloxone doses.
Or naloxone (NARCAN) injection 0.4 mgJump to med 0.4 mg, Intramuscular, EVERY 2 MIN PRN, opioid reversal, Starting on Thu04/19/21 at 1358
Administer intramuscular if an intravenous route is not available and notify provider when administered. For unintended sedation or respira tory depression if all of the below criteria are met: ~ respiratory rate LESS than or EQUAL to 8. ~ SaO2 less than 92% and or/end-tidal CO2 is greater than 50. ~ the patient i s receiving an opioid, has unintended sedation assessed as RASS (-4) or (-5) and patient is currently not on mechanical ventilation. RASS s jackie (-4) is deep sedation with no respo nse to voice but movement or eye opening to physical stimulation. RASS scale (-5) is unarousable. Patien t Monitoring Once the patient has d emonstrated a response to the naloxone, continue to monitor respiratory rate, depth, oxygen saturation and end-tidal CO2 (if available) every 15 minutes x 2, then every 30 minutes x 2, then every 1 hour x 1 after each naloxone dose. Consider transfer to ICU if patient respiratory parameters have not improved after 4 naloxone doses.
Group 4: ondansetron (ZOFRAN-ODT) ODT tab 4 mgJump to med 4 mg, Oral, EVERY 6 HOURS PRN, nausea, v omiting, Starting on Thu04/19/21 at 1341
This is Step 1 of nausea and vomiting management. If nausea not resolved in 15 minutes, go to Step 2 prochlorperazine (COMPAZINE). Do not push through foil backing. Peel back foil and gently remove. Place on tongue immediately. Administration with liquid unnecessary With dry hands, pee l back foil backing and gently remove ta blet. Do not push oral disintegrating tablet through foil backing. Administer immediately on tongue and oral disintegrating tablet dissolves in seconds, then swallow with saliva. Liquid not required.
Or ondansetron (ZOFRAN) injection 4 mgJump to med 4 mg, Intravenous, EVERY 6 HOURS PRN, na usea, vomiting, Administer over 2-5 Minutes, Starting on Thu04/19/21 at 1341
This is Step 1 of nausea and vomiting management. If naus ea not resolved in 15 minutes, go to Richy p 2 prochlorperazine (COMPAZINE). Irritant.
documented in this encounter Care Teams Ostrich Farmer Relationship Specialty Start Date End Date Anatoliy Jackson PCP - General 05/14/12 Heath More PCP - Internal Medicine INTERNAL MEDICINE - 01/06/14 MD Andreas ENDOCRINOLOGY, [facility] [address] [place] [id number] Peter Gipson PCP - Urology 04/02/15 MD Jordan [facility] [address] [place] [address] [address] [place] [address] Peter Mcmullen Assigned Musculoskeletal 06/01/20 MD Mahendra Provider [address] [place], [place] [id number] Hallie Maldonado, Assigned Heart and 02/22/2105/18 LEGAL ASSISTANT COMM[employer]ITY BOARD MEMBER Vascular Provider [address] [id number] documented as of this encounter
--- OUTSIDE RECORDS SUMMARY | 2022-05-02 12:31 | XMS_ITS | Encounter Summary ---
:1950 Author Organization [place] Address [address] [facility] [place] [address] Care Team Providers Name Role Phone Anatoliy Jackson MD Primary Care Provider Heath More MD Unavailable Peter Gipson MD Unavailable Peter Mcmullen MD Unavailable Hallie Maldonado APRN RIM ROLLER OPERATOR Unavailable [phone] Encounter Details Date Type Department Care Team Description 04/19/2021 Travel Social History Tobacco Use Types Packs/Day [...] 05/15/2022 Hospital Encounter Surgery Singh Torres MD [facility] [address] [place] [id number] (Wo rk) 05/15/2022 Surgery Surgery Neo Torres MD BLEPHAROPLASTY BILATERAL [facility] PTOSIS REPAIR BILATERAL [address] [place] [id number] (Wo rk) 06/25/2022 Ancillary Procedure Cardiology Kirk Silver MD [address] [place] [address] (Wo rk) Scheduled Procedures Name Priority Associated [...] on filedocumented in this encounter Care Teams Cable Splicer Assistant Relationship Specialty Start Date End Date Anatoliy Jackson PCP - General 05/14/12 Heath Mroe PCP - Internal Medicine INTERNAL MEDICINE - 01/06/14 MD Andreas ENDOCRINOLOGY, [facility] [address] [place] [address] Peter Gipson PCP - Urology 04/02/15 MD Jordan [facility] [address] [place] [address] [address] [place] [address] Peter Mcmullen Assigned Musculoskeletal 06/01/20 MD Mahendra Provider [address] [place] [address] Hallie Maldonado, Assigned Heart and 02/22/2105/18 CONSTRUCTION HELPER RIM ROLLER OPERATOR Vascular Provider [address] [place] [address] documented as of this encounter
--- OUTSIDE RECORDS SUMMARY | 2022-05-02 12:31 | XMS_ITS | Encounter Summary ---
:1950 Author Organization [facility] Address [address] [place] [address] Care Team Providers Name Role Phone Anatoliy Jackson MD Primary Care Provider Heath More MD Unavailable Peter Gipson MD Unavailable Peter Mcmullen MD Unavailable Hallie Maldonado APRN ECOLOGICAL MODELER Unavailable [phone] Reason for Visit Auth/Cert Specialty Diagnoses / [...] ARTERY-VEIN, TWO ZZC CABG, ARTERY-VEIN, THREE [address] CABG, ARTERY-VEIN, FOUR ZZC CABG, ARTERY-VEIN, FIVE ZZC CABG, ARTERY-VEIN, SIX+ ZZC CABG, ARTERIAL, SINGLE ZZC CABG, ARTERIAL, TWO ZZC CABG, ARTERIAL, THREE ZZC CABG, ARTERIAL, FOUR+ CORONARY ARTERY BYPASS GRAFT (CABG) [facility] [place] [address] Phone: Referral ID Status Reason Start Date Expiration Date Visits Requ ested Visits Authorized [id number] 1 1 Encounter Details Date Type Department Care Team Description 04/19/2021 Surgery [facility] Kushal Gardner CORONAR Y ARTERY BYPASS [facility] Sam Malik MD GRAFT X 3 (DOUGLASS-LAD, SV-OM, Services [address] SV-PDA), WITH LEFT LOWER [address] EXTREMITY ENDOSCOPIC VEIN [address] [place] [address] HARVEST, ON PUMP WITH KARIE [place] [address] READ BY ANESTHESIOLOGIST BRENDA. Surgery Details Date/Time Status Location OR Service Patient Case Case Traum a Class Class Type Case? 04/19/21 7:20 Posted OR OR M Cardiovascular Surgery AM 12 Admit Panel 1 Procedure LRB Anes Op Region Wound Class Commen ts CORONARY ARTERY BYPASS GRAFT X 3 N/A General Heart I-C lean (DOUGLASS-LAD, SV-OM, SV-PDA), WITH LEFT LOWER EXTREMITY ENDOSCOPIC VEIN HARVEST, ON PUMP WITH KARIE READ BY ANESTHESIOLOGIST DR GUTIERREZ. Surgeon Surgeon Role Service Panel Deepak Massey PA-C Assisting 1 Kushal Gardner MD Primary Cardiovascular 1 Lucio Black MD Fellow - Assisting Thoracic 1 Case Notes Perfusion charges Special Needs ON PUMP - NO KARIE - THEY DO NOT WANT KARIE - CASE REQUEST SCHEDULING INSTRUCTIONS ARE INCORRECT - VERBAL CALL FROM TANISHA Hugo 04/04 DP documented in this encounter Social History Tobacco [...] Sign Reading Time Taken Comments Blood Pressure 173/73 04/19/2021 6:04 AM CDT Pulse 54 04/19/2021 6:04 AM CDT Temperature 36.8 ??C (98.2 ??F) 04/19/2021 6:04 AM CDT Respiratory Rate 16 04/19/2021 6:04 AM CDT Oxygen Saturation - - Inhaled Oxygen Concentration - - Weight 98 kg (216 lb) 04/19/2021 6:04 AM CDT Height 180.3 cm (5' 11) [...] Service: Cardiovascular and Thoracic Surgery Home clinic: [facility] Primary Provider: Anatoliy Jackson Admission Diagnoses: CAD (coronary artery disease) [I25.10] Coronary artery disease involving cahto coronary artery of cahto heart without angina pectoris [I25.10] Discharge Diagnosis: Patient Active Problem List Diagnosis ??? Type 2 diabetes mellitus with circulatory disorder (H) ? ? Hyperlipidemia LDL goal <70 ??? Essential hypertension ??? Peripheral vascular disease (H) ??? Coronary artery disease involving cahto coronary artery of cahto heart without angina pectoris ??? Angina pectoris [...] 3 Associated Diagnoses: Coronary artery disease involving cahto coronary artery of cahto heart without angina pectoris cyanocobalamin (VITAMIN B-12) [...] 3 Associated Diagnoses: Coronary artery disease involving cahto coronary artery of cahto heart without angina pectoris; Hyperlipidemia LDL goal [...] tablet Comments: Reason for Stopping: Consultations: Nutrition, Pig Conveyor Operator, hospitalist Brief History of Illness: Mr. Lind [...] hospitalization and medical issues. *Follow up with Jossy/Deepak Snell with Dr Gardner, heart surgeon, at [facility] at [facility] [address] on 05/08/21 at 2:30 PM. If any questions or concerns call [phone]. ??You will see us once at this visit and then if everything is going well you will not need to see us again. ??You will follow buttermilk drier operator with your hammer shop supervisor. *Follow up with Dr Solis, hammer shop supervisor, 06/12/21 at 0845 at [facility]. This is who you will follow with buttermilk drier operator about your heart issues. [phone]. Outpatient therapy: Cardiac rehab Home Care agency: [...] Coronary artery disease daily (with meals) involving cahto coronary artery of cahto heart without angina pectoris cloNIDine (CATAPRES) Take [...] every tabletIndications: evening Coronary artery disease involving cahto coronary artery of cahto heart without angina pectoris, Hyperlipidemia LDL goal <70, S/P coronary artery stent placement senna-docusate Take 1 tablet by 20 tablet 0 04/25/2021 11/0 10/2020 (SENOKOT-S/PERICOLACE) mouth 2 times daily 8.6-50 MG as needed for tabletIndications: S/P constipation CABG (coronary artery bypass graft) documented as of this encounter Progress Notes Cierra Marie MD - 04/25/2021 11:37 AM CDT [facility] Medicine Progress Note - Hospitalist Service Date of Admission: 04/19/2021 Assessment & Plan Ceci Lind is a 70 year old male admitted on 04/19/2021. He underwent CABG x3 with lift IM to theLAD, [id number] saphenous vein graft to the PDA, reverse [...] last 33% more long acting insulin then NAIL TECH dosing [of note though NAIL TECH dosing had been fluctuating] Plan -Have placed discharge orders for insulin regimen. Will discharge with 70 units insulin daily, 1 unit insulin for 5 carbs, HD SSI. Will continue checking sugars 4 times daily before meals and bedtime. -We will need to follow-up with his primary retail salesworker after discharge. Appears to be with [facility] system. ?? Status post 3v cabg on 04/19 Plan - defer management to [facility] ?? 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 Cierra Marie MD Hospitalist Service [facility] Securely message with the [employer] Web Console (learn more here) Text page via [email or web address] Paging/Directory Clinically Significant Risk Factors Present on Admission Interval History Eating well. Having BM. No nausea or vomiting. Discussed diabetes regimen at discharge. will follow up with primary retail salesworker after discharge. Data reviewed today: I reviewed [...] with Dr. Gardner. Brenda Willoughby PA-C Pager [phone] DADT Cierra Marie MD - 04/24/2021 2:43 PM CDT [facility] Medicine Progress Note - Hospitalist Service Date of Admission: 04/19/2021 Assessment & Plan Ceci Lind is a 70 year old male admitted on 04/19/2021. He underwent CABG x3 with lift IM to theLAD, [id number] saphenous vein graft to the PDA, reverse [...] last 33% more long acting insulin then NAIL TECH dosing [of note though NAIL TECH dosing had been fluctuating] Plan -Increase to Lantus 80 units every morning - 1:5 units prandial NovoLog and high dose sliding scale -Continue to titrate insulin as needed -We will need to follow-up with his primary retail salesworker after discharge. Appears to be with [facility] system. ?? Status post 3v cabg on 04/19 Plan - defer management to [facility] ?? 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 Cierra Marie MD Hospitalist Service [facility] Securely message with the [employer] Web Console (learn more here) Text page via [email or web address] Paging/Directory Clinically Significant Risk Factors Present on [...] Willoughby PA-C - 04/24/2021 9:39 AM CDT [facility] Cardiovascular and Thoracic Surgery Daily Note Assessment [...] bid, rosuvastatin 40 mg. Amlodipine 10mg daily (NAIL TECH dose 7.5mg). Lisinopril inc 40 mg, heparin subcutaneous tid, NAIL TECH clonodine resumed -Resp: Extubated within protocol. Saturating well on RA. Working with IS. Continue to encourage IS, cough, deep breathing, ambulation. -Neuro: Grossly intact. Pain controlled. NAIL TECH zoloft resumed. -Renal: good UOP. Up about [...] oz) 101.9 kg (224 lb 10.4 oz) 04/24/21 0600 Weight: 101.4 kg (223 lb 8.7 oz) [...] with Dr. Kendra Willoughby PA-C Pager #: [phone] DADT Laureen Gonzalez NP - 04/23/2021 11:37 PM CDT Hospitalist Cross Cover: Patient requesting gabapentin for restless legs. He takes differently at home; he has received 2 600- mg doses today with last dose at 2100. Plan: - may have melatonin - split gabapentin as at home starting 04/24/2021 Laureen Gonzalez APRN, ECOLOGICAL MODELER Hospitalist Service, [facility] Text Page Pager: [phone] Deepak Massey PA-C - 04/23/2021 11:27 AM CDT [facility] Cardiovascular and Thoracic Surgery Daily Note Assessment [...] daily, rosuvastatin 40 mg. Amlodipine 10mg daily (NAIL TECH dose 7.5mg). Lisinopril 20 mg, Chest tubes and TPWs removed, heparin subcutaneous tid, NAIL TECH pt was also on clonodine bid which was discontinued NAIL TECH -Resp: Extubated within protocol. Saturating well on RA. Working with IS. Continue to encourage IS, cough, deep breathing, ambulation. -Neuro: Grossly intact. Pain controlled. NAIL TECH zoloft resumed. -Renal: good UOP. Up about [...] and plans made. Deepak Massey PA-C Yasir Altamirano DO - 04/23/2021 8:16 AM CDT [facility] Medicine Progress Note - Hospitalist [...] - attempt to get records from primary retail salesworker ?? Status post 3v cabg on 04/19 Plan - defer management to [facility] ?? 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 [...] the Patient. Yasir Altamirano DO Hospitalist Service [facility] Securely message with the [employer] Console (learn more here) Text page via [email or web address] Paging/Directory Clinically Significant Risk Factors Present on [...] Altamirano DO - 04/22/2021 3:59 PM CDT [facility] Medicine Progress Note - Hospitalist [...] - attempt to get records from primary retail salesworker Update: BS worsening. 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 [...] the Patient. Yasir Altamirano, DO Hospitalist Service [facility] Securely message with the [employer] Web Console (learn more here) Text page via [email or web address] Paging/Directory Clinically Significant Risk Factors Present on [...] and care plan discussed with Dr. Gardner [facility] Cardiovascular and Thoracic Surgery Daily Note Assessment [...] 55-60%. ASA, BB, statin. Amlodipine 10mg daily (NAIL TECH dose 7.5mg). Lisinopril 10mg resumed today (NAIL TECH dose 20mg in combination with hydroghlorothiazide 12.5mg). Chest tubes with too much output to remove today, will place to waterseal. Pacer wires capped. -Resp: Extubated within protocol. Saturating well on 1L. Wean as able. Continue to encourage IS, cough, deep breathing, ambulation. -Neuro: Grossly intact. Pain controlled. NAIL TECH zoloft resumed. -Renal: good UOP. Up about [...] Shavon Pisano PA-C CV Surgery Pager # [phone] Shavon Pisano PA-C - 04/21/2021 10:26 AM CDT Patient seen and care plan discussed with Dr. Richards. [facility] Cardiovascular and Thoracic Surgery Daily Note Assessment and Plan: POD#2 s/p Coronary artery bypass grafting x 3 with left internal mammary artery to the left anteriordescending, reverse saphenous vein graft to the posterior descending artery, reverse saphenous vein graft to the obtuse marginal 2 artery, endoscopic vein harvest from the left lower extremity, intraoperative KARIE by Dr. Rochus Voeller -[facility]: HR: 60s-70s. SBP: 120s-150s. Pre op EF: 55-60%. ASA, BB with hold parameters-- will increase to 25mg BID today. Resume NAIL TECH amlodipine at 5mg today for HTN (NAIL TECH dose 7.5mg. NAIL TECH lisinopril-hydrochlorothiazide on hold d/t GENO. Pacer wires capped. Chest tubes with too much output to remove today. Chest tubes to suction -Resp: Extubated within protocol. Saturating well on 1L. Wean as able. Continue to encourage IS, cough, deep breathing, ambulation. -Neuro: Grossly intact. Pain controlled. NAIL TECH zoloft resumed -Renal: good UOP. Up about [...] Shavon Pisano PA-C CV Surgery Pager # [phone] Mateo Tatum, OT - 04/20/2021 1:12 PM [...] or friend will provide Living Environment Comments Ramuter walkout, walk-in shower Self-Care Usual Activity Tolerance [...] identified Bed Mobility Bed Mobility supine-sit Supine-Sit Sequoyah (Bed Mobility) moderate assist (50% patient effort) Transfers Transfers sit-stand transfer;bed-chair transfer Transfer Skill: Bed to Chair/Chair to Bed Bed-Chair Sequoyah (Transfers) minimum assist (75% patient effort) Sit-Stand Transfer Sit-Stand Sequoyah (Transfers) minimum assist (75% patient effort) Balance [...] wheelchair, all belongings sent with pt. insulin santos. Shavon Pisano PA-C - 04/20/2021 9:04 AM CDT Patient seen and care plan discussed with Dr. Susie Aldrich [facility] Cardiovascular and Thoracic Surgery Daily Note [...] capped. ASA, BB with hold parameters, statin. NAIL TECH amlodipine, lisinopril- hydrochlorothiazide on hold. Chest tubesto [...] PPI, sub q heparin -Dispo: Transfer to [facility]. Initiate therapies. Continue chest tubes and [...] pneumothorax. Shavon Pisano PA-C CV Surgery Pager #[phone] Deanna Barnes CNP - 04/20/2021 8:40 AM [...] Konstantin Meeks - 04/18/2021 9:52 AM CDT NAIL TECH medications updated by Medication Scribe prior to [...] the following meds (med scribe removed from NAIL TECH med list): Trazodone, Clonidine Additional medication history [...] history completed by: Gurmeet Meeks CPhT [facility] Consult Notes Ruby [...] classes during the program Ruby Garner RD, LD, [facility] Clinical Dietitian - [facility] Yasir Altamirano DO - 04/21/2021 8:57 AM CDTAssociated Order(s): HOSPITALIST IP CONSULT Konstantin [facility] Consult Note - Hospitalist Service Date of Admission: 04/19/2021 Consult Requested by: Ms. Norris STILES Reason for Consult: diabetic management Assessment & Plan Ceci Lind is a 70 year old male admitted on 04/19/2021. 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 Yasri Altamirano [facility] Securely message with the [employer] Console (learn more here) Text page via [email or web address] Paging/Directory Clinically Significant Risk Factors Present on [...] Surgeon: Darwin Valero MD; Location: HEART CARDIAC WOODWORKING CRAFTSMAN ??? CV INSTANTANEOUS WAVE-FREE RATIO N/A 03/13/2021 Procedure: Instantaneous Wave-Free Ratio; Surgeon: Darwin Valero MD; Location: [facility] CARDIAC WOODWORKING CRAFTSMAN ??? HC LEFT HEART CATHETERIZATION 04/01/2016 mild [...] MD - 04/19/2021 4:44 PM CDTAssociated Order(s): TAILOR WOMEN'S GARMENT ALTERATION IP CONSULT [facility] Critical Care Service Progress Note [...] bypass grafting today. Neftaly Lord MD Pager [phone], LD - 04/19/2021 2:20 PM CDTAssociated Order(s): NUTRITION [...] goal(s). See goals on Care Plan in Epic electronic health record for goal details. Goals [...] w/ liquid bandage. Incision w/ liq bandage, DIRECTOR OF BUSINESS OPERATIONS on L groin. L knee & L [...] and Ankle/Knee/Groin harvest sites with Liquid bandaid, DIRECTOR OF BUSINESS OPERATIONS, +1 weak pedal pulses. Chest tube site [...] Pt requesting 600mg Gabapentin for Restless Leg. NAIL TECH meds show home admin BID at 2030 and Bedtime, but meds spilt day/nite here. Pt also requesting Melatonin for sleep. Thanks! Update: Melatonin ordered. Gabapentin to resume NAIL TECH admin tomorrow, per Hopsitalist note. I adjustedtimes [...] for the 04/19/2021 admission is complete. See [facility] admission navigator for prior to admission medications Location of Interview: Patient room Medication history sources: Patient, Surescripts, Patient's home med list and Care Everywhere Significant changes made to the medication list: Of note, pharmacy interviewed patient on 04/23 at request of hospitalist to focus particularly on insulin regimens (NAIL TECH med list previously completed by medication scribe before surgery) Changed CALMAG to CALM supplement, deleted glucosamine, changed iron to slow release In the past week, patient estimated taking medication this percent of the time: greater than 90% Additional medication history information: Patient follows with the retail salesworker Dr. Felder (previously Dr. More who has since retired) and a independent living instructor through [facility] for diabetes. Of note, patient typically wears [...] both [facility] Reported, Patient rosuvastatin (CRESTOR) 40 MG [...] with Ceci as well. Op Note - Kushal Gardner MD - 04/19/2021 1:28 PM CDT Procedure Date: 04/19/2021 REFERRING IT DESKTOP SUPPORT TECHNICIAN: Fidencio Solis MD; Hallie Maldonado NP PREOPERATIVE DIAGNOSIS: Severe 3-vessel artery disease. POSTOPERATIVE DIAGNOSIS: Severe 3-vessel artery disease. SURGEON: Kushal Gardner MD PLC TECHNICIAN: Lucio Black MD and Deepak Massey PA-C [...] the epicardium using interrupted 6-0 Prolene. Retrograde photographer's assistant was given and the aortic crossclamp was [...] wires placed in theRV muscle and 32 Faroese straight chest tubes were placed in the [...] MD MT: PAKMT Name: CECI LIND Account: [id number] : 1950 Procedure Date: 04/19/2021 Document: [id number] cc: MD Hallie Gonzalez, MASTER DYER, ECOLOGICAL MODELER Brief Op Note - Lucio Black MD - 04/19/2021 12:54 PM CDT [facility] Brief Operative Note Pre-operative diagnosis: CAD (coronary artery disease) [I25.10] Post-operative diagnosis Same as pre-operative diagnosis Procedure: Procedure(s): CORONARY ARTERY BYPASS GRAFT X 3 (DOUGLASS-LAD, SV-OM, SV-PDA), WITH LEFT LOWER EXTREMITY ENDOSCOPIC VEIN HARVEST, ON PUMP WITH KARIE READ BY ANESTHESIOLOGIST DR GUTIERREZ. Surgeon: Surgeon(s) and Role: * Kushal Gardner MD - Primary * Deepak Massey PA-José Miguel - Assisting * Lucio Black MD - [...] [address] [place] [address] (Wo rk) 05/15/2022 Surgery Surgery Neo Torres MD BLEPHAROPLASTY BILATERAL [place] E[facility] PHYSICIANS UPPER L IDS, INTERNAL & SURGEONS PA PTOSIS REPAIR BILATERAL [address] [place] [address] (Wo rk) 06/25/2022 Ancillary Procedure Cardiology Kirk Silver MD [address] [place] [address] (Wo rk) Scheduled Orders Name Type Priority [...] Coronary artery di sease Expected: 04/19/2021 involving cahto (Approximat e), coronary artery of Expires: 04/19/2022 cahto heart without angina pectoris documented as of [...] Address City/State/ZIP [place] [address] [facility] [address] 1st floor, [...] Address City/State/ZIP [place] [address] [phone] [facility] [address], Room 20B (ABNORMAL) CBC with platelets (04/25/2021 10:04 AM CDT) [facility] Method Time Signature WBC Count 10.7 4.0 [...] Address City/State/ZIP [place] [address] Care Lab [address] 1st [...] Address City/State/ZIP Code Phon e Number [place]ORY [place] [address] Care Lab [address] 1st [...] City/State/ZIP Code Phon e Number LABORATORY [place] [facility] [place] [address] Care Lab [address] 1st [...] City/State/ZIP Code Phon e Number LABORATORY [place] [facility] [place] [address] Care Lab [address] 1[address] floor, Room 20B (ABNORMAL) Glucose by meter (04/24/2021 5:06 PM CDT) P athologist Signature GLUCOSE BY 311 (H) 70 - 99 04/24/2021 LABORATORY METER POCT mg/dL 5:13 PM CDT POC Comment: /LETICIA Notified Specimen Anatomical Collection Method Collection Time Receive d Time (Source) Location / / Volume Laterality Blood BLOOD SPECIMEN / 04/24/2021 5:06 PM 04/24 5:13 Unknown CDT PM CDT Kushal BORGES - NADER POCT Performing Organization Address City/State/ZIP Code Phon e Number LABORATORY [place] [facility] [place] [address] Care Lab [address] 1st [...] Address City/State/ZIP Code Phon e Number [place]ATORY [place] [address] Care Lab [address] 1st [...] City/State/ZIP Code Phon e Number LABORATORY [place] [facility] [place] [address] Care Lab [address] 1st [...] City/State/ZIP Code Phon e Number LABORATORY [place] [facility] [place] [phone] Care Lab [address] 1[address], Room 20B (ABNORMAL) Phosphorus (04/24/2021 7:38 AM CDT) athologist Signature Phosphorus 2.2 (L) 2.5 - 4.5 04/24/2021 LABORATORY mg/dL 8:19 AM CDT Specimen Anatomical Collection Method / Collection Time Recei shyla Time (Source) Location / Volume Laterality Blood BLOOD SPECIMEN / Venipuncture / 04/24/2021 7:38 2020 7:56 Unknown Unknown AM CDT AM CDT Kushal Gardner MD LAB - BLOOD ORDERABLES Performing Organization Address City/State/ZIP Code Phon e Number [place]ATORY [place] [address] Care Lab [address] 1st [...] Address City/State/ZIP Code Phon e Number [place]ATORY [place] [address] [phone] [facility] [address] 1[address] floor, Room 20B (ABNORMAL) CBC with platelets (04/24/2021 7:38 AM CDT) Patholo gist Method Time Signature WBC Count 10.8 [...] Address City/State/ZIP Code [place] [address] [phone] Care Lab [address], Room [address]B (ABNORMAL) Basic metabolic panel (04/24/2021 7:38 AM CDT) [facility] Method Time Signature Sodium 143 133 [...] LAB - BLOOD ORDERABLES Performing Organization Address City/[facility]/ZIP Code Phon e Number LABORATORY [facility] [place] [address] [phone] Care Lab [address] 1st [...] BORGES - BESTALIN POCT Performing Organization Address City/[facility]/ZIP Code Phon e Number LABORATORY [place] [facility] [place] [address] Care Lab [address] 1st [...] CDT 11:19 PM CDT Kushal BORGES - BESTALIN POCT Performing Organization Address City/[facility]/ZIP Code Phon e Number LABORATORY [place] [facility] [place] [address] Care Lab [address] 1[address] floor, Room 20B (ABNORMAL) Glucose by meter (04/23/2021 5:03 PM CDT) P athologist Signature GLUCOSE BY 365 (H) 70 - 04/23/2021 LABORATORY METER POCT mg/dL 5:11 PM CDT POC Comment: Dr/RN Notified Specimen Anatomical Collection Method Collection Time Receive d Time (Source) Location / / Volume Laterality Blood BLOOD SPECIMEN / 04/23/2021 5:03 PM 04/23 5:11 Unknown CDT PM CDT Kushal Gardner MD LAB - BEAKER POCT Performing Organization Address City/[facility]/ZIP Code Phon e Number LABORATORY [place] [facility] [place] [address] Care Lab [address] 1st [...] Unknown PM CDT 12:57 PM CDT Kushal Gardner MD LAB - BEAKER POCT Performing Organization Address City/[facility]/ZIP Code Phon e Number LABORATORY [place] [facility] [place] [address] Care Lab [address] 1st [...] Address City/State/ZIP Code Phon e Number [place]ATORY [place] [address] Care Lab [address] floor, Room 20B Phosphorus (04/23/2021 6:58 AM CDT) P athologist Signature Phosphorus 2.7 2.5 - 4.5 04/23/2021 LABORATORY mg/dL 7:55 AM CDT Specimen Anatomical Collection Method / Collection Time Recei shyla Time (Source) Location / Volume Laterality Blood STRUCTURE OF RIGHT Venipuncture / 04/23/2021 6:58 04/10 7:08 UPPER LIMB / Unknown AM CDT AM CDT Unknown Kushal Gardner MD LAB - BLOOD ORDERABLES Performing Organization Address City/State/ZIP Code Phon e Number LABORATORY [place] [address] Care Lab [address] 1[address] floor, Room 20B (ABNORMAL) Magnesium (04/23/2021 6:58 AM CDT) P athologist Signature Magnesium 2.9 [...] Address City/State/ZIP Code Phon e Number LAB[place]ATORY [place] [address] Care Lab [address] 1st [...] Address City/State/ZIP Code Phon e Number [place]ATORY [place] [address] Care Lab [address] 1st [...] Address City/State/ZIP Code Phon e Number [place]ATORY [place] [address] [phone] Care Lab [address] 1[address] floor, Room 20B (ABNORMAL) Glucose by meter (04/23/2021 6:19 AM CDT) athologist Signature GLUCOSE BY 114 (H) 70 - 99 04/23/2021 LABORATORY METER POCT mg/dL 6:25 AM CDT POC Specimen Anatomical Collection Method Collection Time Receive d Time (Source) Location / / Volume Laterality Blood BLOOD SPECIMEN / 04/23/2021 6:19 AM 04/23 6:25 Unknown CDT AM CDT Kushal Gardner MD LAB - BEAKER POCT Performing Organization Address City/State/ZIP Code Phon e Number LABORATORY [place] [facility] [place] [phone] Care Lab [address] 1st [...] 04/23 5:27 Unknown CDT AM CDT Kushal Gardner MD LAB - BEAKER POCT Performing Organization Address City/State/ZIP Code Phon e Number LABORATORY [place] [facility] [place] [address] Care Lab [address] 1st [...] 04/23 4:34 Unknown CDT AM CDT Kushal BORGES - NADER POCT Performing Organization Address City/State/ZIP Code Phon e Number [place] [address] Care Lab [address] 1st [...] City/State/ZIP Code Phon e Number LABORATORY [place] [facility] [place] [address] Care Lab [address] 1[address] floor, Room 20B (ABNORMAL) Glucose by meter (04/23/2021 2:07 AM CDT) P athologist Signature GLUCOSE BY 130 (H) 70 - 99 04/23/2021 SH LABORATORY METER POCT mg/dL 2:13 AM CDT POC Specimen Anatomical Collection Method Collection Time Receive d Time (Source) Location / / Volume Laterality Blood BLOOD SPECIMEN / 04/23/2021 2:07 AM 04/23 2:13 Unknown CDT AM CDT Kushal BORGES - BESTALIN POCT Performing Organization Address City/State/ZIP Code Phon e Number LABORATORY [place] [facility] [place] [address] Care Lab [address] 1st [...] City/State/ZIP Code Phon e Number LABORATORY [place] [facility] [place] [address] Care Lab [address] 1st [...] City/State/ZIP Code Phon e Number LABORATORY [place] [facility] [place] [address] Care Lab [address] 1st [...] BORGES - NADER POCT Performing Organization Address City/[facility]/ZIP Code Phon e Number LABORATORY [place] [facility] [place] [address] Care Lab [address] 1st [...] City/State/ZIP Code Phon e Number LABORATORY [place] [facility] [place] [address] Care Lab [address] 1st [...] City/State/ZIP Code Phon e Number LABORATORY [place] [facility] [place] [address] Care Lab [address] 1[address] floor, Room 20B (ABNORMAL) Glucose by meter (04/22/2021 7:58 PM CDT) P athologist Signature GLUCOSE BY 353 (H) 04/22/2021 LABORATORY METER POCT mg/dL 8:05 PM CDT POC Specimen Anatomical Collection Method Collection Time Receive d Time (Source) Location / / Volume Laterality Blood BLOOD SPECIMEN / 04/22/2021 7:58 PM 04/22 8:05 Unknown CDT PM CDT Kushal BORGES - NADER POCT Performing Organization Address City/State/ZIP Code Phon e Number LABORATORY [place] [facility] [place] [address] Care Lab [address] 1[address] floor, Room 20B (ABNORMAL) Glucose by meter (04/22/2021 7:06 PM CDT) P athologist Signature GLUCOSE BY 391 (H) 04/22/2021 LABORATORY METER POCT mg/dL 7:12 PM CDT POC Specimen Anatomical Collection Method Collection Time Receive d Time (Source) Location / / Volume Laterality Blood BLOOD SPECIMEN / 04/22/2021 7:06 PM 04/22 7:12 Unknown CDT PM CDT Kushal Gardner MD LAB - BESTALIN POCT Performing Organization Address City/State/ZIP Code Phon e Number LABORATORY [place] [facility] [place] [address] Care Lab [address] 1[address] floor, Room 20B (ABNORMAL) Glucose by meter (04/22/2021 6:03 PM CDT) P athologist Signature GLUCOSE BY 453 (H) 70 - 99 04/22/2021 LABORATORY METER POCT mg/dL 6:10 PM CDT POC Specimen Anatomical Collection Method Collection Time Receive d Time (Source) Location / / Volume Laterality Blood BLOOD SPECIMEN / 04/22/2021 6:03 PM 04/22 6:10 Unknown CDT PM CDT Kushal Gardner MD LAB - BEAKER POCT Performing Organization Address City/[facility]/ZIP Code Phon e Number LABORATORY [place] [facility] [place] [phone] Care Lab [address] 1st [...] Address City/State/ZIP Code Phon e Number [place]AT[place] [address] [phone] Care Lab [address] 1st [...] Address City/State/ZIP Code Phon e Number [place]AT[place] [address] Care Lab [address] 1st [...] City/State/ZIP Code Phon e Number LABORATORY [place] [facility] [place] [address] Care Lab [address] 1st [...] 04/22 1:58 Unknown CDT PM CDT Kushal Bishop NADER POCT Performing Organization Address City/State/ZIP Code Phon e Number LABORATORY POC [facility] [place] [phone] Care Lab [address] 1st floor, Room 20B Prepare red blood cells (unit) (04/22/2021 8:45 AM CDT) [facility] Method Time Signature CROSSMATCH Compatible BLOOD BANK UNIT ABO/RH O Pos BLOOD BANK Unit Number [id number] BLOOD BANK Unit Status Transfused BLOOD BANK Blood Red Blood Cells BLOOD Component Type BANK Product Code [id number] BLOOD BANK CODING SYSTEM [id number] BLOOD BANK UNIT TYPE ISBT 5100 BLOOD BANK ISSUE DATE AND [id number] BLOOD TIME BANK Specimen (Source) Anatomical Collection Method Collection Time Re ceived Time Location / / Volume Laterality 04/22/2021 8:45 AM CDT Provider Unknown BLOOD BANK PRODUCT ORDERABLE S Performing Organization Address City/[facility]/ZIP Code Phon e Number BLOOD BANK [address] [place] [phone] Adult Type and Screen (04/22/2021 7:38 AM CDT) [facility] Method Time Signature ABO/RH(D) O POS 04/22/2021 BLOOD 9:00 AM CDT BANK Antibody Negative Negative 04/22/2021 BLOOD Screen 9:00 AM CDT BANK SPECIMEN [id number] 04/22/2021 BLOOD EXPIRATION 9:00 AM CDT BANK DATE Specimen Anatomical Collection Method / Collection Time Recei shyla Time (Source) Location / Volume Laterality Blood STRUCTURE OF RIGHT Venipuncture / 04/22/2021 7:38 04/10 7:48 UPPER LIMB / Unknown AM CDT AM CDT Unknown Kushal Gardner MD LAB - BLOOD BANK TEST ORDER Performing Organization Address City/[facility]/ZIP Code Phon e Number BLOOD BANK [address] [place] [phone] Phosphorus (04/22/2021 7:38 AM CDT) athologist Signature [...] Address City/State/ZIP Code Phon e Number [place]ATORY [place] [address] [phone] Care Lab [address] 1st [...] Address City/State/ZIP Code Phon e Number [place]ATORY [place] [address] Care Lab [address] 1st [...] Address City/State/ZIP Code [place] [address] [phone] [facility] [address] 1[address] floor, Room 20B (ABNORMAL) Basic metabolic panel (04/22/2021 7:38 AM CDT) [facility] Method Time Signature Sodium 141 133 [...] Address City/State/ZIP Code Phon e Number [place]ATORY [place] [address] Care Lab [address] 1st [...] City/State/ZIP Code Phon e Number LABORATORY [place] [facility] [place] [address] Care Lab [address] 1st [...] City/State/ZIP Code Phon e Number LABORATORY [place] [facility] [place] [address] Care Lab [address] 1st [...] Address City/State/ZIP Code Phon e Number [place]AT[place] [address] [phone] Care Lab [address] 1st [...] 04/21 6:15 Unknown CDT PM CDT Kushal Gardner MD LAB - BEAKER POCT Performing Organization Address City/State/ZIP Code Phon e Number LABORATORY [place] [facility] [place] [address] Care Lab [address] 1st [...] City/State/ZIP Code Phon e Number LABORATORY [place] [facility] [place] [address] Care Lab [address] 1st [...] City/State/ZIP Code Phon e Number LABORATORY [place] [facility] [place] [address] Care Lab [address] 1st [...] Address City/State/ZIP Code Phon e Number [place]AT[place] [address] [facility] [address] 1[address] floor, Room 20B (ABNORMAL) CBC with platelets (04/21/2021 11:57 AM CDT) [facility] gist Method Time Signature WBC Count 13.1 (H) [...] Address City/State/ZIP Code Phon e Number [place]AT[place] [address] [phone] [facility] [address] 1[address] floor, Room 20B (ABNORMAL) Arterial Panel POCT (Lab Only) (04/21/2021 11:39 AM CDT) [facility] Method Time Signature pH Arterial POCT [...] Blood, arterial BLOOD SPECIMEN / 04/21/2021 11:39 04/10 7:59 Unknown AM CDT AM CDT uKshal Gardner MD LAB - BEAKER POCT Performing Organization Address City/State/ZIP Code Phon e Number LABORATORY [place] [facility] [place] [address] Care Lab [address] 1st [...] LAB - BLOOD ORDERABLES Performing Organization Address City/[facility]/ZIP Code Phon e Number [place]AT[place] [address] Care Lab [address] 1st [...] Address City/State/ZIP Code Phon e Number [place]AT[place] [address] Care Lab [address] 1[address] floor, Room 20B (ABNORMAL) CBC with platelets (04/21/2021 8:05 AM CDT) [facility] Method Time Signature WBC Count 12.6 [...] Address City/State/ZIP Code [place] [address] [phone] [facility] [address] 1[address] floor, Room 20B (ABNORMAL) Basic metabolic panel (04/21/2021 8:05 AM CDT) [facility] Method Time Signature Sodium 140 133 [...] Address City/State/ZIP Code [place] [address] [phone] [facility] [address] 1st floor, [...] City/State/ZIP Code Phon e Number LABORATORY [place] [facility] [place] [address] Care Lab [address] 1[address] floor, Room 20B (ABNORMAL) Glucose by meter (04/21/2021 5:23 AM CDT) P athologist Signature GLUCOSE BY 164 (H) 70 - 99 04/21/2021 LABORATORY METER POCT mg/dL 5:30 AM CDT POC Specimen Anatomical Collection Method Collection Time Receive d Time (Source) Location / / Volume Laterality Blood BLOOD SPECIMEN / 04/21/2021 5:23 AM 04/21 5:30 Unknown CDT AM CDT Kushal BORGES - NADER POCT Performing Organization Address City/[facility]/ZIP Code Phon e Number LABORATORY [place] [facility] [place] [address] Care Lab [address] 1st [...] City/State/ZIP Code Phon e Number LABORATORY [place] [place] [address] Care Lab [address] 1[address] floor, Room 20B (ABNORMAL) Glucose by meter (04/21/2021 12:10 AM CDT) P athologist Signature GLUCOSE BY 107 (H) 70 - 99 04/21/2021 LABORATORY METER POCT mg/dL 12:16 AM CDT POC Specimen Anatomical Collection Method Collection Time Receive d Time (Source) Location / / Volume Laterality Blood BLOOD SPECIMEN / 04/21/2021 12:10 021 Unknown AM CDT 12:16 AM CDT Kushal BORGES - BESTALIN POCT Performing Organization Address City/[facility]/ZIP Code Phon e Number LABORATORY [place] [facility] [place] [address] Care Lab [address] 1st [...] CDT Kushal DOE POCT Performing Organization Address City/[facility]/ZIP Code Phon e Number LABORATORY [place] [facility] [place] [address] Care Lab [address] 1st [...] City/State/ZIP Code Phon e Number LABORATORY [place] [facility] [place] [address] Care Lab [address] 1st [...] City/State/ZIP Code Phon e Number LABORATORY [place] [facility] [place] [address] Care Lab [address] 1st [...] Address City/State/ZIP Code Phon e Number [place] [address] Care Lab [address] 1st [...] City/State/ZIP Code Phon e Number LABORATORY [place] [facility] [place] [address] Care Lab [address] 1st [...] Unknown PM CDT 12:33 PM CDT Kushal BORGES - BESTALIN POCT Performing Organization Address City/State/ZIP Code Phon e Number LABORATORY [place] [facility] [place] [address] Care Lab [address] 1st [...] CDT 10:17 AM CDT Kushal BORGES - NADER POCT Performing Organization Address City/State/ZIP Code Phon e Number LABORATORY [place] [place] [address] Care Lab [address] 1st [...] Unknown CDT AM CDT Kushal BORGES - SHAKILAAKER POCT Performing Organization Address City/State/ZIP Code Phon e Number LABORATORY [place] [facility] [place] [address] Care Lab [address] 1[address], Room 20B EKG 12-lead, tracing only (04/20/2021 7:43 AM CDT) Patholo gist Method Time Signature Systolic Blood mmHg RADIOLOGY Pressure RESULTS Diastolic Blood mmHg RADIOLOGY Pressure RESULTS Ventricular Rate 70 BPM RADIOLOGY RESULTS Atrial Rate 70 BPM RADIOLOGY RESULTS SC Interval 140 ms RADIOLOGY RESULTS QRS Duration 106 ms RADIOLOGY RESULTS QT 406 ms RADIOLOGY RESULTS QTc 438 ms RADIOLOGY RESULTS P Mona 17 degrees RADIOLOGY RESULTS R AXIS 6 degrees RADIOLOGY RESULTS T Mona 49 degrees RADIOLOGY RESULTS Interpretation Sinus rhythm RADIOLOGY ECG Normal ECG RESULTS When compared with ECG of 19-APR-2021 13:46, (unconfirmed) ST elevation now present in Lateral leads Confirmed by MD JESSICA, S TUAN ([id number]), editor newspaper [place] Mcgregor ([id number]) on 04/23/2021 8:02:02 AM Specimen Anatomical Collection Method Collection Time Receive d Time (Source) Location / / Volume Laterality 04/20/2021 7:43 AM 8:02 CDT AM CDT Lucio Black MD ECG ORDERABLES Performing Organization Address City/[facility]/ZIP Code Phon e Number RADIOLOGY RESULTS (ABNORMAL) Glucose by meter (04/20/2021 6:57 AM CDT) P athologist Signature GLUCOSE BY 141 (H) 70 - 99 04/20/2021 LABORATORY METER POCT mg/dL 7:03 AM CDT POC Specimen Anatomical Collection Method Collection Time Receive d Time (Source) Location / / Volume Laterality Blood BLOOD SPECIMEN / 04/20/2021 6:57 AM 04/20 7:03 Unknown CDT AM CDT Kushal BORGES - SHAKILAAKER POCT Performing Organization Address City/State/ZIP Code Phon e Number LABORATORY [place] [facility] [place] [address] Care Lab [address] 1st [...] EXAM: XR CHEST PORT 1 VIEW LOCATION: [facility] SPITAL DATE/TIME: 04/20/2021 6:09 AM INDICATION: Post Op [...] EXAM: XR CHEST PORT 1 VIEW LOCATION: [facility] SPITAL DATE/TIME: 04/20/2021 6:09 AM INDICATION: Post Op [...] ionized whole blood (04/20/2021 4:43 AM CDT) P athologist Signature Calcium 4.2 (L) 4.4 - 5.2 04/20/2021 LABORATORY Ionized mg/dL 4:51 AM CDT Specimen Anatomical Collection Method Collection Time Receive d Time (Source) Location / / Volume Laterality Blood ARTERIAL LINE / VAD(CVC, PICC) / 04/20/2021 4:43 AM 4:48 Unknown Unknown CDT AM CDT Lucio Black MD LAB - BLOOD ORDERABLES Performing Organization Address City/State/ZIP Code Phon e Number LABORATORY [place] [address] [facility] [address] 1[address] floor, Room 20B (ABNORMAL) Basic metabolic panel (04/20/2021 4:42 AM CDT) [facility] Method Time Signature Sodium 142 133 [...] Address City/State/ZIP Code Phon e Number [place]ATORY [place] [address] Care Lab [address] 1st [...] Address City/State/ZIP Code Phon e Number [place]ATORY [place] [address] Care Lab [address] 1st [...] Address City/State/ZIP Code Phon e Number LABORATORY [place] [address] Care Lab [address] 1[address] floor, Room 20B (ABNORMAL) CBC with platelets (04/20/2021 4:42 AM CDT) [facility] gist Method Time Signature WBC Count 10.2 [...] Address City/State/ZIP Code Phon e Number [place]ATORY [place] [phone] Care Lab [address] 1st [...] City/State/ZIP Code Phon e Number LABORATORY [place] [facility] [place] [address] Care Lab [address] 1[address] floor, Room 20B (ABNORMAL) Glucose by meter (04/20/2021 2:24 AM CDT) athologist Signature GLUCOSE BY 123 (H) 70 - 99 04/20/2021 LABORATORY METER POCT mg/dL 2:30 AM CDT POC Specimen Anatomical Collection Method Collection Time Receive d Time (Source) Location / / Volume Laterality Blood BLOOD SPECIMEN / 04/20/2021 2:24 AM 04/20 2:30 Unknown CDT AM CDT Kushal Gardner MD LAB - BEAKER POCT Performing Organization Address City/State/ZIP Code Phon e Number LABORATORY [place] [facility] [place] [address] Care Lab [address] 1st [...] 04/20 1:12 Unknown CDT AM CDT Kushal Gardner MD LAB - BEAKER POCT Performing Organization Address City/State/ZIP Code Phon e Number LABORATORY [place] [facility] [place] [address] Care Lab [address] 1[address] floor, Room 20B (ABNORMAL) Comprehensive metabolic panel (04/20/2021 12:09 AM CDT) [facility] gist Method Time Signature Sodium 144 133 [...] ARTERIAL LINE / VAD(CVC, PICC) / 04/20/2021 12:04/10 Unknown Unknown AM CDT 12:12 AM CDT Lucio Black MD LAB - BLOOD ORDERABLES Performing Organization Address City/State/ZIP Code Phon e Number [place]ATORY [place] [address] [phone] Care Lab [address] 1st [...] City/State/ZIP Code Phon e Number LABORATORY [place] [facility] [place] [address] Care Lab [address] 1st [...] Unknown PM CDT 10:28 PM CDT Kushal Gardner MD LAB - BEAKER POCT Performing Organization Address City/State/ZIP Code Phon e Number LABORATORY [place] [facility] [place] [address] Care Lab [address] 1st [...] 04/19 9:06 Unknown CDT PM CDT Kushal Gardner MD LAB - BEAKER POCT Performing Organization Address City/[facility]/ZIP Code Phon e Number LABORATORY [place] [facility] [place] [address] Care Lab [address] 1st [...] CDT Kushal DOE POCT Performing Organization Address City/[facility]/ZIP Code Phon e Number LABORATORY [place] [facility] [place] [address] Care Lab [address] 1st [...] City/State/ZIP Code Phon e Number LABORATORY [place] [place] [address] Care Lab [address] 1st [...] City/State/ZIP Code Phon e Number LABORATORY [place] [facility] [place] [address] Care Lab [address] 1st [...] 04/19 5:04 Unknown CDT PM CDT Kushal BORGES - NADER POCT Performing Organization Address City/State/ZIP Code Phon e Number LABORATORY [place] [facility] [place] [address] Care Lab [address] 1st [...] Address City/State/ZIP Code Phon e Number [place]AT[place] [address] Care Lab [address] 1st [...] City/State/ZIP Code Phon e Number LABORATORY [place] [facility] [place] [address] Care Lab [address] 1st [...] 04/19 3:11 Unknown CDT PM CDT Kushal BORGES - BESTALIN POCT Performing Organization Address City/State/ZIP Code Phon e Number LABORATORY [place] [facility] [place] [address] Care Lab [address] 1st [...] LAB - BEAKER POCT Performing Organization Address City/[facility]/ZIP Code Phon e Number LABORATORY [place] [facility] [place] [phone] Care Lab [address] 1st [...] LAB - BLOOD ORDERABLES Performing Organization Address City/[facility]/ZIP Code Phon e Number [place]ATORY [place] [address] Care Lab [address] 1[address], Room 20B (ABNORMAL) Phosphorus (04/19/2021 2:07 PM CDT) athologist Signature Phosphorus 2.3 (L) 2.5 - 4.5 04/19/2021 LABORATORY mg/dL 2:41 PM CDT Specimen Anatomical Collection Method / Collection Time Recei shyla Time (Source) Location / Volume Laterality Blood ARTERIAL LINE / Venipuncture / 04/19/2021 2:07 2 021 2:13 Unknown Unknown PM CDT PM CDT Lucio Black MD LAB - BLOOD ORDERABLES Performing Organization Address City/State/ZIP Code Phon e Number [place]ATORY [place] [address] Care Lab [address] 1st [...] Address City/State/ZIP Code Phon e Number [place]ATORY [place] [address] Care Lab [address] 1st [...] Address City/State/ZIP Code Phon e Number [place]ATORY [place] [address] Care Lab [address] 1st [...] Address City/State/ZIP Code Phon e Number [place]ATORY [place] [address] Care Lab [address] 1[address] floor, Room 20B (ABNORMAL) Comprehensive metabolic panel (04/19/2021 2:07 PM CDT) [facility] Method Time Signature Sodium 145 (H) [...] Address City/State/ZIP Code [place] [address] [facility] [address] 1[address] floor, Room 20B (ABNORMAL) CBC with platelets (04/19/2021 2:07 PM CDT) [facility] Method Time Signature WBC Count 14.1 (H) [...] ARTERIAL LINE / Venipuncture / 04/19/2021 2:07 2 021 2:13 Unknown Unknown PM CDT PM CDT Lucio Black MD LAB - BLOOD ORDERABLES Performing Organization Address City/State/ZIP Code Phon e Number LAB[place]ATORY [place] [address] [phone] Care Lab [address] 1[address], Room 20B (ABNORMAL) Blood gas arterial with oxyhemoglobin (04/19/2021 2:07 PM CDT) [facility] gist Method Time Signature pH Arterial 7.38 7.35 [...] Address City/State/ZIP Code Phon e Number LAB[place]ATORY [place] [address] [phone] Care Lab [address] 1[address], Room 20B (ABNORMAL) Partial thromboplastin time (04/19/2021 2:06 PM CDT) athologist Signature aPTT 65 (H) 22 - [...] Address City/State/ZIP Code Phon e Number [place]ATORY [place] [address] [phone] Care Lab [address] 1[address], Room 20B (ABNORMAL) INR (04/19/2021 2:06 PM CDT) athologist Signature INR 1.31 (H) 0.85 - [...] Address City/State/ZIP Code Phon e Number [place]AT[place] [address] [phone] Care Lab [address] 1st [...] pleural fluid. DARYN RICHARDS MD SYSTEM ID: [id number] Narrative 04/19/2021 2:24 PM CDT CHEST PORTABLE [...] pleural fluid. DARYN RICHARDS MD SYSTEM ID: [id number] Lucio Black MD IMG DIAGNOSTIC IMAGING ORDER [facility] EKG 12-lead, tracing only (04/19/2021 1:46 PM CDT) Component Value Ref Range Test Analysis Performed Pathologis t Method Time At Signature Systolic Blood mmHg RADIOLOGY Pressure RESULTS Diastolic Blood mmHg RADIOLOGY Pressure RESULTS Ventricular Rate 58 BPM RADIOLOGY RESULTS Atrial Rate 58 BPM RADIOLOGY RESULTS SC Interval 154 ms RADIOLOGY RESULTS QRS Duration 106 ms RADIOLOGY RESULTS QT 420 ms RADIOLOGY RESULTS QTc 412 ms RADIOLOGY RESULTS P Mona degrees RADIOLOGY RESULTS R AXIS 4 degrees RADIOLOGY RESULTS T Mona 37 degrees RADIOLOGY RESULTS Interpretation Sinus bradycardia RADIOLO GY ECG Otherwise normal ECG RESULTS When compared with ECG of 19-APR-2021 07:12, (unconfirmed) No significant change was found Confirmed by MD BARTOLO, BA ID ([id number]), editor newspaper [employer] Mcgregor ([id number]) on 04/23/2021 11:07:21 AM Specimen Anatomical Collection Method Collection Time Receive d Time (Source) Location / / Volume Laterality 04/19/2021 1:46 PM CDT 11:07 AM CDT Lucio Black MD ECG ORDERABLES Performing Organization Address City/State/ZIP Code Phon e Number RADIOLOGY RESULTS (ABNORMAL) Arterial Panel POCT (Lab Only) (04/19/2021 12:17 PM CDT) [facility] Method Time Signature pH Arterial POCT [...] 04/10 7:59 Unknown PM CDT AM CDT Kushal Gardner MD LAB - BEAKER POCT Performing Organization Address City/State/ZIP Code Phon e Number LABORATORY [place] [facility] [place] [address] Care Lab [address] [...] LAB - BLOOD ORDERABLES Performing Organization Address City/[facility]/ZIP Code Phon e Number [place]ATORY [facility] [place] [address] Care Lab [address] [...] Address City/State/ZIP Code Phon e Number [place]AT[place] [facility] [place] [address] Care Lab [address] 1st [...] Address City/State/ZIP Code Phon e Number [place]AT[place] [facility] [place] [address] [phone] [facility] [address] 1[address] floor, [...] Address City/State/ZIP Code Phon e Number [place]AT[place] [facility] [place] [address] [facility] [address] 1[address] floor, Room 20B (ABNORMAL) CBC with platelets (04/19/2021 12:16 PM CDT) [facility] gist Method Time Signature WBC Count 14.9 (H) [...] Address City/State/ZIP Code Phon e Number LABORATORY [facility] [place] [address] Care Lab [address] floor, Room 20B (ABNORMAL) Arterial Panel POCT (Lab Only) (04/19/2021 11:05 AM CDT) [facility] Method Time Signature pH Arterial POCT [...] AM CDT Kushal Gardner MD LAB - [facility] POCT Performing Organization Address City/State/ZIP Code Phon e Number LABORATORY [place] [facility] [place] [phone] Care Lab [address], Room 20B (ABNORMAL) Venous Panel POCT (Lab Only) (04/19/2021 10:36 AM CDT) [facility] Method Time Signature pH Venous POCT [...] City/State/ZIP Code Phon e Number LABORATORY [place] [facility] [place] [address] Care Lab [address] 1[address] floor, Room 20B (ABNORMAL) Arterial Panel POCT (Lab Only) (04/19/2021 10:03 AM CDT) [facility] Method Time Signature pH Arterial POCT [...] POCT 0.9 <=2.0 04/23/2021 LABORATOR Y mmol/L 4:48 PM CDT POC Specimen Anatomical Collection Method Collection Time Receive d Time (Source) Location / / Volume Laterality Blood, arterial BLOOD SPECIMEN / 04/19/2021 10:03 04/10 7:59 Unknown AM CDT AM CDT Kushal Gardner MD LAB - [place] POCT Performing Organization Address City/State/ZIP Code Phon e Number LABORATORY [place] [facility] [place] [address] Care Lab [address] [...] City/State/ZIP Code Phon e Number LABORATORY [place] [facility] [place] [address] Care Lab [address] [...] 04/19 9:04 Unknown CDT AM CDT Kushal Bishop [place] POCT Performing Organization Address City/State/ZIP Code Phon e Number LABORATORY [place] [facility] [place] [address] Care Lab [address], Room 20B (ABNORMAL) Arterial Panel POCT (Lab Only) (04/19/2021 8:10 AM CDT) [facility] Method Time Signature pH Arterial POCT [...] Unknown CDT AM CDT Kushal BORGES - SHAKILAAKER POCT Performing Organization Address City/State/ZIP Code Phon e Number LABORATORY [place] [facility] [place] [address] Care Lab [address] 1[address], Room 20B EKG 12-lead, tracing only (04/19/2021 7:12 AM CDT) Component Value Ref Range Test Analysis Performed Pathologis t Method Time At Signature Systolic Blood mmHg RADIOLOGY Pressure RESULTS Diastolic Blood mmHg RADIOLOGY Pressure RESULTS Ventricular Rate 55 BPM RADIOLOGY RESULTS Atrial Rate 55 BPM RADIOLOGY RESULTS SC Interval 166 ms RADIOLOGY RESULTS QRS Duration 110 ms RADIOLOGY RESULTS QT 424 ms RADIOLOGY RESULTS QTc 405 ms RADIOLOGY RESULTS P Mona 67 degrees RADIOLOGY RESULTS R AXIS -25 degrees RADIOLOGY RESULTS T Mona 85 degrees RADIOLOGY RESULTS Interpretation Sinus bradycardia RADIOLO GY ECG Nonspecific ST and T wave abnormality RESULTS Abnormal ECG When compared with ECG of 13-MAR-2021 11:02, Lateral ST/T changes more prominent Confirmed by MD BARTOLO, BA ID [id number]), editor newspaper Martinez Mcgregor ([id number]) on 04/23/2021 10:37:35 AM Specimen Anatomical Collection Method Collection Time Receive d Time (Source) Location / / Volume Laterality 04/19/2021 7:12 AM CDT 10:37 AM CDT Kushal Gardner MD ECG ORDERABLES Performing Organization Address City/[facility]/ZIP Code Phon e Number RADIOLOGY RESULTS (ABNORMAL) [...] Address City/State/ZIP Code Phon e Number LABORATORY [facility] [place] [address] Care Lab [address] 1[address] [...] Address City/State/ZIP Code Phon e Number [place]ATORY [place] [address] Care Lab [address] [...] Address City/State/ZIP Code Phon e Number [place]AT[place] [address] [phone] Care Lab [address] [...] Address City/State/ZIP Code [place] [address] Care [address], Room 20B documented in this encounter Visit Diagnoses Diagnosis Coronary artery disease involving cahto coronary artery of cahto heart without angina pectoris - Primary CAD (coronary artery disease) Coronary atherosclerosis of unspecified type of vessel, cahto or graft Type 2 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, with long-term current use of insulin (H) S/P coronary artery stent placement Postsurgical percutaneous transluminal c oronary angioplasty status S/P CABG (coronary artery bypass graft) Postsurgical aortocoronary bypass status CAD (coronary artery disease) Coronary atherosclerosis of unspecified type of vessel, cahto or graft 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 documented in this encounter Admitting Diagnoses Diagnosis Coronary artery disease involving cahto coronary artery of cahto heart without angina pectoris CAD (coronary artery disease) Coronary atherosclerosis of unspecified type of vessel, cahto or graft documented in this encounter Administered [...] Given 04/22/2021 8:41 PM CDT 650 mg amLODIPine (NORVASC) tablet 10 mg Given 04/25/2021 10:02 AM CDT 10 mg 10 mg, Oral, DAILY, First dose (after last modification) on Thu04/22/21 at 0900 Given 04/24/2021 8:40 AM CDT 10 mg Given 04/23/2021 9:28 AM CDT 10 mg aspirin (ASA) chewable [...] 8:40 AM CDT 6.25 mg ceFAZolin (ANCEF) 1g in Given 04/19/2021 9:00 AM CDT 1 g Operative Site/Surgical 1000 mL NS irrigation Sit e bottle PRN, Starting on Thu04/19/21 at 0900, Intra-procedure cloNIDine (CATAPRES) tablet 0.1 mg Given 04/25/2021 10:02 AM CDT 0.1 mg 0.1 mg, Oral, 2 TIMES DAILY, First dose on Thu04/24/21 at 1000 Given 04/24/2021 9:07 PM CDT 0.1 mg Given 04/24/2021 12:15 PM CDT 0.1 mg dextrose 50 % injection 25-50 mL 25-50 mL, Intravenous, EVERY 15 MIN PRN, low blood sug ar, Administer over 1-5 Minutes, Starting on Thu04/21/21 at 1822 , Use if have IV [...] glucose level is above 100 mg/dL. Vesicant. ferrous sulfate CR tablet 140 mg Given 04/25/2021 9:56 AM CDT 140 mg 140 mg, Oral, DAILY, First dose on Thu04/24/21 at 0900, 45 mg of Elemental iron. Formulary sub for NAIL TECH iron. Given 04/24/2021 12:15 PM CDT 140 mg gabapentin (NEURONTIN) capsule 600 mg Given 04/24/2021 11:11 PM CDT 600 mg 600 mg, Oral, 2 TIMES DAILY, First dose on Thu04/19/21 at 2100 Given 04/24/2021 9:06 PM CDT 600 mg Given 04/23/2021 8:57 PM CDT 600 mg glucagon injection 1 mg 1 mg, Subcutaneous, EVERY 15 MIN PRN, low blood sugar, May repeat x 1 only, Starting on 04/21/21 at 1822, May giv e SQ or [...] juice on I and O flowsheet. heparin 10,000 units + LR 1000 mL Given 04/19/2021 9:00 AM CDT 1,010 mLs PRN, Starting on Thu04/19/21 at 0900, Intra-procedure heparin ANTICOAGULANT injection 5,000 Given 04/25/2021 5:06 [...] ed pain or analgesic side effects. insulin aspart (NovoLOG) injection (RAPID Given 04/25/2021 [...] 5 Units insulin glargine (LANTUS PEN) injection 74 Given 04/25 11:06 AM CDT 74 Units Units 74 Units, Subcutaneous, EVERY MORNING BEFORE BREAKFAST, First dose (after last modification) on Thu04/25/21 at 0930 lisinopril (ZESTRIL) tablet 40 mg Given 04/25/2021 [...] Given 04/19/2021 2:51 PM CDT 500 mg naloxone (NARCAN) injection 0.2 mg 0.2 [...] Liquid not required . oxyCODONE (ROXICODONE) tablet 5-10 mg 5-10 mg, Oral, EVERY 4 HOURS PRN, modera te to severe pain, Starting on Thu04/23/21 at 1146, Hold oral PRN dose for analgesi c side effects. Notify provider to assess for uncontrolled pain or analgesic side effects. Hold while on IV EMERGENCY ROOM PHYSICIAN ASSISTANT or with regular IV opioid dosing. pantoprazole (PROTONIX) EC tablet 40 mg Given 04/25/2021 9:56 AM CDT 40 mg 40 mg, Oral, DAILY, First dose on Thu04/19/21 at 1400, DO NOT CRUSH. Given 04/24/2021 8:40 AM CDT 40 mg Given 04/23/2021 9:28 AM CDT 40 mg papaverine injection Given 04/19/2021 9:00 AM 120 mg Operative Site/Surgical PRN, Starting on Thu CDT Site 04/19/21 at 0900, Intra-procedure polyethylene glycol (MIRALAX) Packet 17 g Given 04/24/2021 8:40 AM CDT 17 g 17 g, Oral, DAILY, First dose on 04/20/21 at 0900, To prevent constipation. Mixed prescribed [...] Given 04/22/2021 9:17 AM CDT 17 g rosuvastatin (CRESTOR) tablet 40 mg Given 04/24/2021 9:07 PM CDT 40 mg 40 mg, Oral, EVERY EVENING, First dose on 04/19/21 at 2000 Given 04/23/2021 8:57 PM CDT 40 mg Given 04/22/2021 8:35 PM CDT 40 mg senna-docusate (SENOKOT-S/PERICOLACE) Given 04/24/2021 9:06 PM C DT 1 tablet 8.6-50 MG per tablet 1 tablet 1 tablet, Oral, 2 TIMES DAILY, First dose on 04/19/21 at 2100, To prevent constipation. Hold for loose stools Hold for loose stools. Given 04/24/2021 8:40 AM CDT 1 tablet Given 04/23/2021 8:57 PM CDT 1 tablet sertraline (ZOLOFT) tablet 50 mg Given 04/25/2021 9:57 AM CDT 50 mg 50 mg, Oral, DAILY, First dose on 04/20/21 at 1430 Given 04/24/2021 8:40 AM CDT [...] dormant line, Starting on Thu04/19/21 at 1341 documented in this encounter Active and Recently Administered Medications Times are shown in CDT. Scheduled Medication Order 04/23/2021 04/24/2021 04/25/2021 amLODIPine (NORVASC) tablet 10 mg 0928 (Given - Provider: Ryder Ramirez RN) 0840 (Given - Provider: Maye Ramirez RN) 1002 (Given - Provider: Enriqueta Tilley) 10 mg, Oral, DAILY, First dose (after last modificatio n) on Thu04/22/21 at 0900 aspirin (ASA) chewable tablet 162 mg (CANCELED) 0928 ( Given - Provider: Maye Ramirez RN) 162 mg, Oral or NG Tube, DAILY, First do se on Thu04/20/21 at 0900, Chest tube output [...] mg 1215 (Given - Provider: Maye Ramirez RN)210 (Given - Provider: Chelo Mendieta RN) 1002 (Given - Provider: Enriqueta Tilley) 0.1 mg, Oral, 2 TIMES DAILY, First dose on Thu04/24/21 at 1000 ferrous sulfate CR tablet 140 mg 1215 (Given - P rovider: Maye Ramirez RN) 0956 (Given - Provider: Enriqueta Tilley) 140 mg, Oral, DAILY, First dose on Thu at 0900, 45 mg of Elemental iron. Formulary sub for NAIL TECH iron. furosemide (LASIX) injection 20 mg (COMPLETED) 937 (G iven - Provider: Maye Ramirez RN) 20 mg, Intravenous, ONCE, Administer ove r 1-3 Minutes, On Thu04/23/21 at 0930, For 1 dose, Give after blood gabapentin (NEURONTIN) capsule 600 mg 0928 (Given - Pr ovider: Maye Ramirez RN)2056 (Given - Provider: Annie Renae RN) 210 (Given - Provider: Chelo Mendieta RN)2311 (Given - Provider: Chelo Mendieta RN) 600 mg, Oral, 2 TIMES DAILY, First dose on Thu04/19/21 at 2100 heparin ANTICOAGULANT injection 5,000 Units 0429 (Give n - Provider: Chelo Mendieta RN)1356 (Given - Provider: Maye Ramirez RN)205 (Given - Provider: Annie Renae, RN) 0443 (Given - Provider: Annie Renae, RN) 1215 (Given - Provider: Maye Ramirez RN)2107 (Given - Provider: Chelo Mendieta, LETICIA) 0506 (Given - Provider: Chelo Mendieta, LETICIA)1200 (Canceled Entry - Provider: Orders Generic Provider [...] Provider: Maye Ramirez RN)1710 (Given - Provider: aMye Ramirez RN - Comment: 311) 1004 (Given - Provider: Enriqueta Tilley)1200 (Canceled Entry - Provider: Orders Generic [...] (LANTUS PEN) injection 70 Units (CANC ELED) 0658 (Given - Provider: Chelo Mendieta [...] First dose (after last modificatio n) on Thu04/25/21 at 0900 metoprolol tartrate (LOPRESSOR) tablet 25 mg (CANCELED ) 0928 (Given - Provider: Maye Ramirez RN) 25 mg, Oral, 2 TIMES DAILY, First dose ( after last modification) on Thu04/21/21 at 2100, Hold for HR less than 60 and SBP less than 100 pantoprazole (PROTONIX) EC tablet 40 mg 0928 (Given - Provider: Maye Ramirez RN) 0840 (Given - Provider: Maye Ramirez RN) 0956 (Gi krzysztof - Provider: Enriqueta Tilley) 40 mg, Oral, DAILY, First dose on Thu04/19/21 at 1400, DO NOT CR [facility]. polyethylene glycol (MIRALAX) Packet 17 g 927 (Given - Provider: Maye Ramirez RN) 08 (Given - Provider: Maye Ramirez RN) 100 (No t Given - Provider: Enriqueta Tilley - Reason: Patient/family refused) 17 g, Oral, DAILY, First dose on 04/10 at 0900, To prevent constipation. Mixed prescribed [...] sodium phosphates (NEUTRA-PHOS) Packet 1 packet (COMPLETED) 1532 (Given - Provider: Maye Ramirez RN)2105 (Given - Provider: Chelo Mendieta, LETICIA) 1002 (Given - Provider: Enriqueta Tilley) 1 [...] 40 mg 2056 (Given - Provider: Annie Renae, LETICIA) 2106 (Given - Provider: Chelo Mendieta, LETICIA) 40 mg, Oral, EVERY EVENING, First dose on Thu04/19/21 at 2000 senna-docusate (SENOKOT-S/PERICOLACE) 8.6-50 MG per ta blet 1 tablet 927 (Given - Provider: Maye Ramirez RN)2056 (Given - Provider: Annie Renae, RN) 08 (Given - Provider: Maye Ramirez RN)2105 (Given - Provider: Chelo Mendieta, LETICIA) 1009 (Not Given - Provider: Enriqueta Jc per - Reason: Patient/family refused) 1 tablet, Oral, 2 TIMES DAILY, First dos e on Thu04/19/21 at 2100, To prevent constipation. Hold for loose stools Hold for loose stools. sertraline (ZOLOFT) tablet 50 mg 0928 (Given - Provider: Devaughn Ramirez RN) 0840 [...] Renae RN)1533 (Given - Provider: Maye Ramirez RN)2107 (Given - Provider: Chelo Mendieta RN - Comment: PIV) 0517 (Given - Provider: [...] management to improve pain control., Starting on 04/22/21 at 0000, May give first dose 4 [...] Renae RN) 2324 (Given - Provider: Chelo Mendieta, LETICIA) 0515 (Given - Provider: Chelo Mendieta, LETICIA ) 10 mg, Intravenous, EVERY 30 MIN [...] (MILK OF MAGNESIA) suspension 30 m L 2056 (Given - Provider: Annie Renae, LETICIA) 30 mL, Oral, DAILY PRN, constipation, Us e if preventive measures (senna- docusate, docusate, and polyethylene glycol) are not effective., Starting on Thu04/19/21 at 1341, Shake well. Hold for loose stools. melatonin tablet 10 mg 2343 (Given - Provider: Annie Renae, LETICIA) 2106 (Given - Provider: Chelo Mendieta RN) [...] si de effects. Hold while on IV EMERGENCY ROOM PHYSICIAN ASSISTANT or with regular IV opioid dosin g. sodium chloride (PF) 0.9% PF flush 3 mL 3 mL, Intracatheter, EVERY 1 MIN PRN, li ne flush, other, to ensure patency or to lock dormant line, Starting on Thu04/19/21 at 1341 Linked Groups Order Group 1: glucose gel 15-30 gJump to med 15-30 g, Oral, EVERY 15 MIN PRN, low blo od sugar, Starting on Thu04/21/21 at 1822
Give first dose for initial [...] x 1 only, Starting on 04/21/21 at 1822
May give SQ or IM. [...] after each naloxone dose. Consider transfer to [facility] if patient respiratory parameters hav e [...] not resolved in 15 minutes, go to [facility] p 2 prochlorperazine (COMPAZINE). Irritant.
documented in this encounter Care Teams Textile Screen Printer Relationship Specialty Start Date End Date Anatoliy Jackson, PCP - General 05/14/12 Heath More PCP - Internal Medicine INTERNAL MEDICINE - 01/06/14 MD Andreas ENDOCRINOLOGY, [facility] [address] [facility] [address] [place] [phone] Peter Gipson PCP - Urology 04/02/15 MD Jordan MET UROLOGY [address] [facility] [address] [place], [place] [phone] Peter Mcmullen Assigned Musculoskeletal 06/01/20 MD Mahendra Provider [address] [place], [place] [address] Hallie Maldonado, Assigned Heart and 02/22/2105/18 [employer]OLOGICAL MODELER Vascular Provider [address] [id number] documented as of this encounter
--- OUTSIDE RECORDS SUMMARY | 2022-05-02 12:32 | XMS_ITS | Encounter Summary ---
:1950 Author Organization [place] Address [address] [place] [address] Care Team Providers Name Role Phone Anatoliy Jackson MD Primary Care Provider Heath More MD Unavailable Peter Gipson MD Unavailable Peter Mcmullen MD Unavailable Hallie Maldonado APRN VAULT MAKER Unavailable [phone] Reason for Visit Auth/Cert Specialty Diagnoses [...] ARTERY-VEIN, TWO ZZC CABG, ARTERY-VEIN, THREE [address] CABG, ARTERY-VEIN, FOUR ZZC CABG, ARTERY-VEIN, FIVE ZZC CABG, ARTERY-VEIN, SIX+ ZZC CABG, ARTERIAL, SINGLE ZZC CABG, ARTERIAL, TWO ZZC CABG, ARTERIAL, THREE ZZC CABG, ARTERIAL, FOUR+ CORONARY ARTERY BYPASS GRAFT (CABG) [facility] [place] [address] Phone: Referral ID Status Reason Start Date Expiration Date Visits Requ ested Visits Authorized [id number] 1 1 Encounter Details Date Type Department Care Team Description 04/17/2021 [facility] Kushal Gardner Coronar y artery disease involving [place] coronary artery of [place] heart without angina pectoris; [facility] MD [place] Pre-operative cardiovascular examination ; [address] Abnormal finding of blood ch emistry, unspecified ; [place] [phone] [address] Other chest pain [phone] [place] [address] (Wo rk) Social History Tobacco Use Types Packs/Day Years Used Date Never Smoker Smokeless Tobacco: Never Used Alcohol Use Standard Drinks/Week Comments Yes 0 (1 standard drink = 0.6 oz pure beer a nd wine, every couple days alcohol) Alcohol Habits Answer Date Recorded How often do you have a drink Not asked containing alcohol? How many drinks containing alcohol do Not asked you have on a typical day when you are drinking? How often do you have six or more Not asked drinks on one occasion? Comment: beer and wine, every couple days 015 Sex Assigned at Date Recorded Male 03/12/2021 [...] [address] [place] [id number] (Wo rk) 05/15/2022 Surgery Surgery Neo Torres MD BLEPHAROPLASTY BILATERAL [facility] SURGEONS [place] PTOSIS REPAIR BILATERAL [address] [place] [id number] (Wo rk) 06/25/2022 Ancillary Procedure Cardiology Kirk Silver MD [address] [place] [address] (Wo rk) Pending Results Name Type Priority Associated Diagnoses Date/Ti me Prepare red blood Blood Bank Routine 04/19/2021 5:55 AM CDT cells (unit) Prepare red blood Blood Bank Routine 04/19/2021 5:55 AM CDT cells (unit) Scheduled Procedures Name Priority Associated Diagnoses Date/Time REPAIR, PTOSIS, BILATERAL, Dermatochalas is 05/15/2022 7:30 AM CDT WITH BILATERAL BLEPHAROPLASTY 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 PREPARE RED BLOOD Routine 04/19/2021 5:55 CELLS (UNIT) AM CDT PREPARE RED BLOOD Routine 04/19/2021 5:55 CELLS (UNIT) AM CDT PREPARE RED BLOOD Routine 04/19/2021 5:55 Results for this CELLS (UNIT) AM CDT procedure are i n the results section. ROUTINE UA WITH Routine 04/17/2021 11:55 Coronary artery Resul ts for this MICROSCOPIC REFLEX TO AM CDT disease involving p rocedure are in CULTURE [place] coronary the results artery of [place] section. heart without angina pectoris Pre-operative cardiovascular examination TYPE AND SCREEN, ADULT Routine 04/17/2021 11:53 Coronary arter y Results for this AM CDT disease involving procedure are in [place] coronary the results artery of [place] section. heart without angina pectoris Pre-operative cardiovascular examination INR Routine 04/17/2021 11:53 Coronary artery Results for this AM CDT disease involving procedure are in [place] coronary the results artery of [place] section. heart without angina pectoris Pre-operative cardiovascular examination PREALBUMIN Routine 04/17/2021 11:53 Coronary artery Results for this AM CDT disease involving procedure are in [place] coronary the results artery of [place] section. heart without angina pectoris Pre-operative cardiovascular examination PARTIAL THROMBOPLASTIN Routine 04/17/2021 11:53 Coronary arter y Results for this TIME AM CDT disease involving procedure are in [place] coronary the results artery of [place] section. heart without angina pectoris Pre-operative cardiovascular examination Other chest pain HEMOGLOBIN A1C Routine 04/17/2021 11:53 Coronary artery Result s for this AM CDT disease involving procedure are in [place] coronary the results artery of [place] section. heart without angina pectoris Pre-operative cardiovascular examination Abnormal finding of blood chemistry, unspecified COMPREHENSIVE Routine 04/17/2021 11:53 Coronary artery Results for this METABOLIC PANEL AM CDT disease involving procedu re are in [place] coronary the results artery of [place] section. heart without angina pectoris Pre-operative cardiovascular examination ABO/RH TYPE AND SCREEN Routine 04/17/2021 11:53 Coronary arter y Results for this AM CDT disease involving procedure are in [place] coronary the results artery of [place] section. heart without angina pectoris Pre-operative cardiovascular examination CBC WITH PLATELETS Routine 04/17/2021 11:53 Coronary artery Re sults for this AM CDT disease involving procedure are in [place] coronary the results artery of [place] section. heart without angina pectoris Pre-operative cardiovascular examination documented in this encounter Results Prepare red blood cells (unit) (04/19/2021 5:55 AM CDT) Component Value Ref Test Analysis Performed At [facility] Method Time Signature CROSSMATCH Compatible BLOOD BANK UNIT ABO/RH O Pos BLOOD BANK Unit Number [id number] BLOOD BANK Unit Status Returned from BLOOD Issue BANK Blood Red Blood Cells BLOOD Component Type BANK Product Code [id number] BLOOD BANK CODING SYSTEM [id number] BLOOD BANK UNIT TYPE ISBT 5100 BLOOD BANK ISSUE DATE AND [id number] BLOOD TIME BANK Specimen (Source) Anatomical Collection Method Collection Time Re ceived Time Location / / Volume Laterality 04/19/2021 5:55 AM CDT Provider Unknown BLOOD BANK PRODUCT ORDERABLE S Performing Organization Address City/State/ZIP Code Phon e Number BLOOD BANK [address] [place] [address] Prepare red blood cells (unit) (04/19/2021 5:55 AM CDT) Component Value Ref Test Analysis Performed At [facility] Method Time Signature CROSSMATCH Compatible BLOOD BANK UNIT ABO/RH O Pos BLOOD BANK Unit Number [id number] BLOOD BANK Unit Status Returned from BLOOD Issue BANK Blood Red Blood Cells BLOOD Component Type BANK Product Code [id number] BLOOD BANK CODING SYSTEM [id number] BLOOD BANK UNIT TYPE ISBT 5100 BLOOD BANK ISSUE DATE AND [id number] BLOOD TIME BANK Specimen (Source) Anatomical Collection Method Collection Time Re ceived Time Location / / Volume Laterality 04/19/2021 5:55 AM CDT Provider Unknown BLOOD BANK PRODUCT ORDERABLE S Performing Organization Address City/State/ZIP Code Phon e Number BLOOD BANK [address] [place] [address] (ABNORMAL) UA with Microscopic reflex to Culture (04/17/2021 11:55 AM CDT) [facility] Method Time Signature Color Urine Light Colorless, 04/17/2021 LABORATORY Yellow Straw, 12:24 PM Light CDT Yellow, Yellow Appearance Urine Clear Clear 04/17/2021 LABORATOR Y 12:24 PM CDT Glucose Urine >=1000 (A) Negative 04/17/2021 LABORATORY mg/dL 12:24 PM CDT Bilirubin Urine Negative Negative 04/17/2021 LABORATORY 12:24 PM CDT Ketones Urine Negative Negative 04/17/2021 LABORATORY mg/dL 12:24 PM CDT Specific Hurley 1.018 1.003 - 04/17/2021 LABORATOR Y Urine 1.035 12:24 PM CDT Blood Urine Negative Negative 04/17/2021 LABORATORY 12:24 PM CDT pH Urine 5.5 5.0 - 7.0 04/17/2021 LABORATORY 12:24 PM CDT Protein Albumin Negative Negative 04/17/2021 LABORATORY Urine mg/dL 12:24 PM CDT Urobilinogen Normal Normal, 2.0 04/17/2021 LABORATORY Urine mg/dL 12:24 PM CDT Nitrite Urine Negative Negative 04/17/2021 LABORATORY 12:24 PM CDT Leukocyte Negative Negative 04/17/2021 LABORATORY Esterase Urine 12:24 PM CDT RBC Urine 1 <=2 /HPF 04/17/2021 LABORATORY 12:24 PM CDT WBC Urine 1 <=5 /HPF 04/17/2021 LABORATORY 12:24 PM CDT Hyaline Casts 1 <=2 /LPF 04/17/2021 LABORATORY Urine 12:24 PM CDT Specimen Anatomical Collection Method Collection Time Receive d Time (Source) Location / / Volume Laterality Urine MID-STREAM URINE Non-blood 04/17/2021 11:55 021 SPECIMEN / Unknown Collection / AM CDT 12:09 PM CDT Unknown Narrative LABORATORY - 04/17/2021 12:24 PM CDT Urine Culture not indicated Kushal Gardner MD LAB - URINE ORDERABLES Performing Organization Address City/State/ZIP Code Phon e Number LABORATORY [facility] [place] [address] Care Lab [address], Room [address]B Adult Type and Screen (04/17/2021 11:53 AM CDT) [facility] Method Time Signature ABO/RH(D) O POS 04/17/2021 BLOOD 12:00 AM BANK CDT Antibody Negative Negative 04/17/2021 BLOOD Screen 12:00 AM BANK CDT SPECIMEN [id number] 04/17/2021 BLOOD EXPIRATION 12:00 AM BANK DATE CDT Specimen Anatomical Collection Method / Collection Time Recei shyla Time (Source) Location / Volume Laterality Blood STRUCTURE OF RIGHT Venipuncture / 04/17/2021 11:53 03/2021 UPPER LIMB / Unknown AM CDT 11:56 AM CDT Unknown Kushal Gardner MD LAB - BLOOD BANK TEST ORDER Performing Organization Address City/State/ZIP Code Phon e Number BLOOD BANK [address] [place] [address] (ABNORMAL) CBC with platelets (04/17/2021 11:53 AM CDT) [facility] Method Time Signature WBC Count 10.5 4.0 - 11.0 04/17/2021 LABORATORY 10e3/uL 11:59 AM CDT RBC Count 3.79 (L) 4.40 - 04/17/2021 LABORATORY 5.90 11:59 AM CDT 10e6/uL Hemoglobin 11.1 (L) 13.3 - 04/17/2021 LABORATORY 17.7 g/dL 11:59 AM CDT Hematocrit 33.2 (L) 40.0 - 04/17/2021 LABORATORY 53.0 % 11:59 AM CDT MCV 88 78 - 100 04/17/2021 LABORATORY fL 11:59 AM CDT MCH 29.3 26.5 - 04/17/2021 LABORATORY 33.0 pg 11:59 AM CDT MCHC 33.4 31.5 - 04/17/2021 LABORATORY 36.5 g/dL 11:59 AM CDT RDW 12.4 10.0 - 04/17/2021 LABORATORY 15.0 % 11:59 AM CDT Platelet Count 174 150 - 450 04/17/2021 LABORATORY 10e3/uL 11:59 AM CDT Specimen Anatomical Collection Method / Collection Time Recei shyla Time (Source) Location / Volume Laterality Blood STRUCTURE OF RIGHT Venipuncture / 04/17/2021 11:53 03/2021 UPPER LIMB / Unknown AM CDT 11:56 AM CDT Unknown Saqibus [place] Gardner MD LAB - BLOOD ORDERABLES Performing Organization Address City/State/ZIP Code Phon [place] [address] [facility] [address] floor, Room [address]B (ABNORMAL) Comprehensive metabolic panel (04/17/2021 11:53 AM CDT) [facility] Method Time Signature Sodium 136 133 - 144 04/17/2021 LABORATORY mmol/L 12:24 PM CDT Potassium 5.0 3.4 - 5.3 04/17/2021 LABORATORY mmol/L 12:24 PM CDT Chloride 108 94 - 109 04/17/2021 LABORATORY mmol/L 12:24 PM CDT Carbon Dioxide 28 20 - 32 04/17/2021 LABORATORY (CO2) mmol/L 12:24 PM CDT Anion Gap <1 (L) 3 - 14 04/17/2021 LABORATORY mmol/L 12:24 PM CDT Urea Nitrogen 49 (H) 7 - 30 04/17/2021 LABORATORY mg/dL 12:24 PM CDT Creatinine 1.37 (H) 0.66 - 04/17/2021 LABORATORY 1.25 12:24 PM CDT mg/dL Calcium 9.0 8.5 - 04/17/2021 LABORATORY 10.1 12:24 PM CDT mg/dL Glucose 319 (H) 70 - 99 04/17/2021 LABORATORY mg/dL 12:24 PM CDT Alkaline 51 40 - 150 04/17/2021 LABORATORY Phosphatase U/L 12:24 PM CDT AST 15 0 - 45 04/17/2021 LABORATORY U/L 12:24 PM CDT ALT 25 0 - 70 04/17/2021 LABORATORY U/L 12:24 PM CDT Protein Total 7.1 6.8 - 8.8 04/17/2021 LABORATORY g/dL 12:24 PM CDT Albumin 3.5 3.4 - 5.0 04/17/2021 LABORATORY g/dL 12:24 PM CDT Bilirubin Total 0.5 0.2 - 1.3 04/17/2021 LABORATORY mg/dL 12:24 PM CDT GFR Estimate 52 (L) >60 04/17/2021 LABORATORY mL/min/1. 12:24 PM CDT 73m2 Comment: As of February [...] Laterality Blood STRUCTURE OF RIGHT Venipuncture / 04/17/2021 11:53 03/2021 UPPER LIMB / Unknown AM CDT 11:56 AM CDT Unknown Kushal Gardner MD LAB - BLOOD ORDERABLES Performing Organization Address City/State/ZIP Code Phon e Number [place] [address] Care Lab [address] 1[address], Room [address]B INR (04/17/2021 11:53 AM CDT) P athologist Signature INR 1.07 0.85 - 1.15 04/17/2021 LABORATORY 12:07 PM CDT Comment: Effective 02/17/2021, the refere nce range for this assay has changed. Specimen Anatomical Collection Method / Collection Time Recei shyla Time (Source) Location / Volume Laterality Blood STRUCTURE OF RIGHT Venipuncture / 04/17/2021 11:53 03/2021 UPPER LIMB / Unknown AM CDT 11:56 AM CDT Unknown Kushal Gardner MD LAB - BLOOD ORDERABLES Performing Organization Address City/[facility]/ZIP Code Phon e [place] [address] Care Lab [address], Room [address]B Partial thromboplastin time (04/17/2021 11:53 AM CDT) P athologist Signature aPTT 30 22 - 38 04/17/2021 LABORATORY Seconds 12:08 PM CDT Comment: Effective 02/17/2021, the refere nce range for this assay has changed. Specimen Anatomical Collection Method / Collection Time Recei shyla Time (Source) Location / Volume Laterality Blood STRUCTURE OF RIGHT Venipuncture / 04/17/2021 11:53 03/2021 UPPER LIMB / Unknown AM CDT 11:56 AM CDT Unknown Kushal Gardner MD LAB - BLOOD ORDERABLES Performing Organization Address City/[facility]/ZIP Code Phon e [place] [address] Care Lab [address] 1[address], Room [address]B (ABNORMAL) Hemoglobin A1c (04/17/2021 11:53 AM CDT) Analysis Performed At Patho logist Time Signature Hemoglobin A1C 6.6 (H) 0.0 - 5.6 04/17/2021 LABORATORY % 12:29 PM CDT Comment: Normal <5.7% Prediabetes 5.7-6.4% ?? Diabetes 6.5% or higher Note: Adopted from ADA consensus guideli [place]. Specimen Anatomical Collection Method / Collection Time Recei shyla Time (Source) Location / Volume Laterality Blood STRUCTURE OF RIGHT Venipuncture / 04/17/2021 11:53 03/2021 UPPER LIMB / Unknown AM CDT 11:56 AM CDT Unknown Kushal Gardner MD LAB - BLOOD ORDERABLES Performing Organization Address City/State/ZIP Code Phon e Number [place] [address] Care Lab [address] 1[address] floor, Room [address]B Prealbumin (04/17/2021 11:53 AM CDT) P athologist Signature Prealbumin 37 15 - 45 04/17/2021 LABORATORY mg/dL 12:25 PM CDT Specimen Anatomical Collection Method / Collection Time Recei shyla Time (Source) Location / Volume Laterality Blood STRUCTURE OF RIGHT Venipuncture / 04/17/2021 11:53 03/2021 UPPER LIMB / Unknown AM CDT 11:56 AM CDT Unknown Kushal Gardner MD LAB - BLOOD ORDERABLES Performing Organization Address City/State/ZIP Code Phon [place] [address] Care Lab 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 documented in this encounter Care Teams Canal Equipment Mechanic Relationship Specialty Start Date End Date Anatoliy Jackson, PCP - General 05/14/12 Heath More PCP - Internal Medicine INTERNAL MEDICINE - 01/06/14 MD Andreas ENDOCRINOLOGY, ENDOCRINE CLINIC DIABETES & METABOLISM [facility] [address] [place] [address] Peter Gipson PCP - Urology 04/02/15 MD Jordan [facility] [address] [facility] [address] [place] [address] Peter Mcmullen Assigned Musculoskeletal 06/01/20 MD Mahendra Provider [address] [place], [place] [id number] [place] [address] Hallie Maldonado, Assigned Heart and 02/22/2105/18 MARSHMALLOW MAKER VAULT MAKER Vascular Provider [address] [place] [address] documented as of this encounter
--- OUTSIDE RECORDS SUMMARY | 2022-05-02 12:32 | XMS_ITS | Encounter Summary ---
:1950 Author Organization [place] Address [address] [facility] [place] [address] Care Team Providers Name Role Phone Anatoliy Jackson MD Primary Care Provider Heath More MD Unavailable Peter Gipson MD Unavailable Peter Mcmullen MD Unavailable Hallie Maldonado APRN MANUFACTURING JOB TITLES Unavailable [phone] Encounter Details Date Type Department Care Team Description 04/16/2021 Orders Only SH PHYS STANDARD Kendra, Kushal [address] [place] [address] [address] [phone] [address] [place] [address] (Wo rk) Social History Tobacco Use Types [...] been in contact with No / Unsure 04/16/2021 9:54 AM CDT someone who was confirmed or 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 documented as of this encounter Plan of Treatment Upcoming Encounters Date Type Specialty Care Team Description 05/15/2022 Hospital Encounter Surgery Singh Torres MD [facility] [address] [place] [address] (Wo rk) 05/15/2022 Surgery Surgery Neo Torres MD BLEPHAROPLASTY BILATERAL [place] [facility] PTOSIS REPAIR BILATERAL [address] [place] [address] (Wo rk) 06/25/2022 Ancillary Procedure Cardiology Kirk Silver MD [address] [place] [address] (Wo rk) Scheduled Procedures Name Priority Associated [...] on filedocumented in this encounter Care Teams Tower Air Traffic Control Specialist Relationship Specialty Start Date End Date Anatoliy Jackson PCP - General 05/14/12 Heath More PCP - Internal Medicine INTERNAL MEDICINE - 01/06/14 MD Andreas ENDOCRINOLOGY, ENDOCRINE CLINIC DIABETES & METABOLISM [facility] [address] [place] [phone] Peter Gipson PCP - Urology 04/02/15 MD Jordan [facility] [address] [facility] [address] [place] [address] Peter Mcmullen Assigned Musculoskeletal 06/01/20 MD Mahendra Provider [address] [place], [place] [address] Hallie Maldonado, Tom Heart and 02/22/2105/18 COCOA BEAN ROASTER HELPER MANUFACTURING JOB TITLES Vascular Provider [address] [place] [address] [id number] documented as of this encounter
--- OUTSIDE RECORDS SUMMARY | 2022-05-02 12:32 | XMS_ITS | Encounter Summary ---
:1950 Author Organization [place] Address [address] [facility] [place] [address] Care Team Providers Name Role Phone Anatoliy Jackson MD Primary Care Provider Heath More MD Unavailable Peter Gipson MD Unavailable Peter Mcmullen MD Unavailable Hallie Maldonado APRN UPPER TIER Unavailable [phone] Encounter Details Date Type Department Care Team Description 04/17/2021 Travel Social History Tobacco Use Types Packs/Day [...] been in contact with No / Unsure 04/17/2021 11:25 AM CDT someone who was confirmed or 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 documented as of this encounter Plan of Treatment Upcoming Encounters Date Type Specialty Care Team Description 05/15/2022 Hospital Encounter Surgery Singh Torres MD [facility] [address] [place] [address] (Wo rk) 05/15/2022 Surgery Surgery Neo Torres MD BLEPHAROPLASTY BILATERAL [facility], [facility] [place] PTOSIS REPAIR BILATERAL [address] [place] [address] (Wo rk) 06/25/2022 Ancillary Procedure Cardiology Kirk Silver MD [address] [place] [id number] (Wo rk) Scheduled Procedures Name Priority Associated [...] on filedocumented in this encounter Care Teams Hedis Registered Nurse Rn Relationship Specialty Start Date End Date Anatoliy Jackson, PCP - General 05/14/12 Heath More PCP - Internal Medicine INTERNAL MEDICINE - 01/06/14 MD Andreas ENDOCRINOLOGY, ENDOCRINE CLINIC DIABETES & METABOLISM [facility] [address] [place] [phone] Peter Gipson PCP - Urology 04/02/15 MD Jordan [facility] [address] [place] [address] [address] [place], [place] [id number] Peter Mcmullen Assigned Musculoskeletal 06/01/20 MD Mahendra Provider [facility] [address] [address] Hallie Maldonado, Assigned Heart and 02/22/2105/18 AUTOMATIC GLUING MACHINE OPERATOR UPPER TIER Vascular Provider [address] [place] [address] [id number] documented as of this encounter
--- OUTSIDE RECORDS SUMMARY | 2022-05-02 12:32 | XMS_ITS | Encounter Summary ---
:1950 Author Organization [place] Address [address] [facility] [place] [address] Care Team Providers Name Role Phone Anatoliy Jackson MD Primary Care Provider Heath More MD Unavailable Peter Gipson MD Unavailable Peter Mcmullen MD Unavailable Hallie Maldonado APRN PRINT FINISHING WORKER Unavailable [phone] Reason for Referral Diagnostic Imaging Ultrasound (Routine) - Closed Specialty Diagnoses / Procedures Referred By Contact Refer red To Contact Diagnoses Coronary artery disease involving ak chin coronary artery of ak chin heart without angina pectoris Pre-operative cardiovascular examination [facility] Cardiovasc Surgery Procedures US Lower Extremity Venous Mapping Bilateral [address] [place] [address] Referral ID Status Reason Start Date Expiration Date Visits Requ ested Visits Authorized [id number] Closed 04/02/2021 04/02/2022 1 1 Reason for Visit Auth/Cert Specialty Diagnoses / [...] ARTERY BYPASS GRAFT (CABG) LL2 [place] [address] Phone: Referral ID Status Reason Start Date Expiration Date Visits Requ ested Visits Authorized [id number] 1 1 Encounter Details Date Type Department Care Team Description 04/16/2021 Hospital Encounter [facility] Kushal Gardner oronary artery disease involving ak chin coronary artery of ak chin heart without angina pectoris; [facility] MD [place] Pre-operative cardiovascular examination [address], [address] [address] [place] [address] [phone] Social History Tobacco Use Types Packs/Day Years [...] CABG (coronary artery bypass graft) amLODIPine (NORVASC) Take 1 tablet (2.5 90 tablet 1 2 021 04/25/2021 2.5 MG mg) by mouth daily tabletIndications: Take 1 tablet (2.5mg) Essential hypertension in addition to 1 tablet Amlodipine 5mg for a total dose of 7.5mg amLODIPine (NORVASC) 5 Take 1 tablet (5 mg) 90 tablet 0 05/202104/25/2021 MG tabletIndications: by mouth daily Take 1 Essential hypertension tablet (5mg) in addition to 1 tablet 2.5mg to total 7.5mg aspirin (ASA) 81 MG 4 tablets (324 mg) by 30 tablet 0 04/2506/27/2021 chewable Oral or NG Tube route tabletIndications: S/P daily CABG (coronary artery bypass graft) aspirin (ASPIRIN) 81 MG Take 81 mg by mouth 0 04/25/2021 EC tablet daily calcium-magnesium Take 1 tablet by 0 0 04/23/2021 (CALMAG) 500-250 MG mouth every evening TABS per tablet carvedilol (COREG) 6.25 Take 1 tablet (6.25 120 tablet 3 02/202105/01/2021 MG tabletIndications: mg) by mouth 2 times Coronary artery disease daily (with meals) involving ak chin coronary artery of ak chin heart without angina pectoris cloNIDine (CATAPRES) Take 1 tablet (0.1 60 tablet 3 021 05/17/2021 0.1 MG mg) by mouth 2 times tabletIndications: S/P daily CABG (coronary artery bypass graft) cloNIDine (CATAPRES) Take 0.1 mg by mouth 0 04/18/2021 0.1 MG tablet 2 times daily Copper Gluconate 2 MG Take 1 capsule by 0 04/25/2021 CAPS mouth daily Ferrous Sulfate (IRON Take 50 mg by mouth 0 04/23/2021 PO) daily ferrous sulfate 140 (45 Take 1 tablet (140 30 tablet 1 04/1009/10/2021 Fe) MG TBCR CR mg) by mouth daily tabletIndications: S/P CABG (coronary artery bypass graft) Ferrous Sulfate 50 MG Take 50 mg by mouth 0 04/25/2021 TBCR daily gabapentin (NEURONTIN) TAKE 1 CAPSULE(100 90 capsule 1 02/2504/18/2021 100 MG MG) BY MOUTH THREE capsuleIndications: DDD TIMES DAILY (degenerative disc disease), lumbar gabapentin (NEURONTIN) Take 600 mg by mouth 0 05/01/2021 300 MG capsule 2 times daily At 8:30pm and at bedtime glucosamine-chondroitin Take 1 capsule by 0 04/23/2021 500-400 MG CAPS per mouth daily capsule insulin glargine Inject 70 Units 0 04/25/2021 (LANTUS VIAL) 100 Subcutaneous At UNIT/ML Bedtime vialIndications: Type 2 diabetes mellitus with other circulatory complication, with long-term current use of insulin (H) insulin glargine Inject 45 Units 0 (LANTUS VIAL) 100 Subcutaneous At UNIT/ML vial Bedtime Insulin Lispro (HUMALOG Inject Subcutaneous 3 0 04/25/2021 SC) times daily (with meals) Sliding scale + carb coverage insulin lispro 1 unit insulin for 5 [...] units. long-term current use of insulin (H) LANTUS 100 UNIT/ML SC as directed 100 0 09/18/2004 SOLN lisinopril (ZESTRIL) 40 Take 1 tablet (40 mg) 30 tablet 1 0 04/26/2021 05/01/2021 MG tabletIndications: by mouth daily S/P CABG (coronary artery bypass graft) lisinopril-hydrochlorot Take 1 tablet by 90 tablet 2 202004/25/2021 hiazide (ZESTORETIC) mouth daily 20-12.5 MG tabletIndications: Hypertension methocarbamol (ROBAXIN) Take 1 tablet (500 30 tablet 0 04/1005/01/2021 500 MG mg) by mouth every 6 tabletIndications: S/P hours as needed for CABG (coronary artery muscle spasms bypass graft) nitroGLYcerin Place 1 tablet (0.4 25 tablet 3 12/14/2020 (NITROSTAT) 0.4 MG mg) under the tongue sublingual every 5 minutes as tabletIndications: needed for chest pain Coronary artery disease (If pain is not involving ak chin relieved 5 minutes coronary artery of after 1st dose call ak chin heart without 911) angina pectoris oxyCODONE (ROXICODONE) Take 1-2 tablets 40 tablet 0 2 021 04/25/2021 5 MG tabletIndications: (5-10 mg) by mouth S/P CABG (coronary every 4 hours as artery bypass graft) needed for moderate to severe pain oxyCODONE (ROXICODONE) Take 1-2 tablets 10 tablet [...] every tabletIndications: evening Coronary artery disease involving ak chin coronary artery of ak chin heart without angina pectoris, Hyperlipidemia LDL goal <70, S/P coronary artery stent placement senna-docusate Take 1 tablet by 20 tablet 0 04/25/2021 110 10/2020 (SENOKOT-S/PERICOLACE) mouth 2 times daily 8.6-50 MG as needed for tabletIndications: S/P constipation CABG (coronary artery bypass graft) traZODone (DESYREL) 50 Take 50 mg by mouth 0 04/18/2021 MG tablet At Bedtime UNABLE TO FIND Take 1 teaspoonful by 0 04/24/2021 mouth At Bedtime MEDICATION NAME: Calm Magnesium Supplement. Mix powder with 8 ounces of hot water. documented as of this encounter Plan of Treatment Upcoming Encounters Date Type Specialty Care Team Description 05/15/2022 Hospital Encounter Surgery Singh Torres MD [facility] [address] [place] [address] (Wo rk) 05/15/2022 Surgery Surgery Neo Torres MD BLEPHAROPLASTY BILATERAL [place] [facility] PTOSIS REPAIR BILATERAL [address] [place] [address] (Wo rk) 06/25/2022 Ancillary Procedure Cardiology Kirk Silver MD [address] [place] [address] (Wo rk) Scheduled Procedures Name Priority Associated [...] Name Priority Date/Time Associated Diagnosis Comme nts US LOWER EXTREMITY Routine 04/16/2021 11:29 Coronary artery di sease Results for this VENOUS MAPPING AM CDT involving ak chin procedure are in BILATERAL coronary artery of the resul ts ak chin heart without section . angina pectoris Pre-operative cardiovascular examination documented in this encounter Results US Lower Extremity Venous Mapping Bilateral (04/16/2021 11:29 AM CDT) Anatomical Region Laterality Modality Vascular, Arm, Forearm Ultrasound Specimen (Source) Anatomical Location Collection Method / Collectio n Time Received Time / Laterality Volume Impressions 04/17/2021 3:24 PM CDT IMPRESSION: 1. Right great saphenous vein in the thi gh ranges from 1.7 mm to 4.1 mm. 2. Right great saphenous vein at and bel ow the knee ranges from 1.6 mm to 2.6 mm. 3. Left great saphenous vein in the thig h ranges from 1.5 mm to 3.6 mm. 4. Left great saphenous vein at and belo w the knee ranges from 0.8 mm to 2.8 mm. KIARA LAGOS DO Narrative 04/17/2021 3:24 PM CDT ULTRASOUND BILATERAL LOWER EXTREMITY VENOUS MAPPING ??04/16/2021 11:29 AM CLINICAL HISTORY/INDICATION: ??Coronary artery disease involving ak chin coronary artery of ak chin heart without angina pectoris. Pre-operative cardiovascular examination. FINDINGS/ Procedure Note Kiara Lagos DO - 2020 ULTRASOUND BILATERAL LOWER EXTREMITY OVIDIO OUS MAPPING 04/16/2021 11:29 AM CLINICAL HISTORY/INDICATION: Coronary ar alena disease involving ak chin coronary artery of ak chin heart without angina pectoris. Pre-operative cardiovascular examination. FINDINGS/ IMPRESSION: 1. Right great saphenous vein in the thi gh ranges from 1.7 mm to 4.1 mm. 2. Right great saphenous vein at and bel ow the knee ranges from 1.6 mm to 2.6 mm. 3. Left great saphenous vein in the thig h ranges from 1.5 mm to 3.6 mm. 4. Left great saphenous vein at and belo w the knee ranges from 0.8 mm to 2.8 mm. KIARA LAGOS DO Saqib Helena Gardner MD 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 documented in this encounter Care Teams Mid Level Java Developer Relationship Specialty Start Date End Date Anatoliy Jackson, PCP - General 05/14/12 Heath More PCP - Internal Medicine INTERNAL MEDICINE - 01/06/14 MD Andreas ENDOCRINOLOGY, [facility]INE [facility]IC DIABETES & METABOLISM OF [facility] [address] [facility] [address] [place] [phone] Peter Gipson PCP - Urology 04/02/15 MD Jordan [facility] UROLOGY [address] [facility] [address] [place] [address] Peter Mcmullen Assigned Musculoskeletal 06/01/20 MD Mahendra Provider [address] [place] [address] Hallie Maldonado, Assigned Heart and 02/22/2105/18 SUPERVISOR LUMP ROOM [facility] Vascular Provider [address] [place] [address] documented as of this encounter
--- OUTSIDE RECORDS SUMMARY | 2022-05-02 12:32 | XMS_ITS | Encounter Summary ---
:1950 Author Organization [place] Address [address] [facility] [place] [address] Care Team Providers Name Role Phone Anatoliy Jackson MD Primary Care Provider Heath More MD Unavailable Peter Gipson MD Unavailable Peter Mcmullen MD Unavailable Hallie Maldonado APRN DIE CUTTER DIAMOND Unavailable [phone] Reason for Referral Diagnostic Imaging CT Scan (Routine) - Closed Specialty Diagnoses / Procedures Referred By Contact Refer red To Contact Radiology. Diagnoses Coronary artery disease involving prairie island coronary artery of [place] heart without angina pectoris Pre-operative cardiovascular examination Cardiovasc Surgery Ct Scan Procedures CT Chest w/o Contrast [address] [facility] [address] [place] [phone] Referral ID Status Reason Start Date Expiration Date Visits Requ ested Visits Authorized [id number] Closed 04/02/2021 04/02/2022 1 1 Reason for [...] ARTERY BYPASS GRAFT (CABG) LL2 [place] [address] Phone: Referral ID Status Reason Start Date Expiration Date Visits Requ ested Visits Authorized [id number] 1 1 Encounter Details Date Type Department Care Team Description 04/16/2021 Hospital Encounter [facility] Kushal Gardner oronary artery disease involving [place] coronary artery of [place] heart without angina pectoris; [facility] MD [place] Pre-operative cardiovascular examination [address] [address] [place] [address] [phone] Social History Tobacco Use Types Packs/Day Years [...] in contact with No / Unsure 04/16/2021 9:52 AM CDT someone who was confirmed or [...] Take 1 tablet (2.5 90 tablet 1 021 04/25/2021 2.5 MG mg) by mouth [...] Coronary artery disease daily (with meals) involving prairie island coronary artery of [place] heart without angina pectoris cloNIDine (CATAPRES) Take [...] artery disease (If pain is not involving [place] relieved 5 minutes coronary artery of after 1st dose call [place] heart without 911) angina pectoris oxyCODONE (ROXICODONE) Take 1-2 tablets 40 tablet 0 021 04/25/2021 5 MG tabletIndications: (5-10 mg) [...] every tabletIndications: evening Coronary artery disease involving [place] coronary artery of [place] heart without angina pectoris, Hyperlipidemia LDL goal [...] [facility] [address] [place] [id number] (Wo rk) 05/15/2022 Surgery Surgery Neo Torres MD BLEPHAROPLASTY BILATERAL [place] [facility], [facility] & [facility] PTOSIS REPAIR BILATERAL [address] [place] [id number] (Wo rk) 06/25/2022 Ancillary Procedure Cardiology Kirk Silver MD [address] [place] [address] (Wo rk) Scheduled Procedures Name Priority Associated [...] Name Priority Date/Time Associated Diagnosis Comme nts CT CHEST W/O Routine 04/16/2021 10:19 Coronary artery disease Results for this CONTRAST AM CDT involving prairie [place] procedure a re in coronary artery of the resul ts [place] heart without section . angina pectoris Pre-operative cardiovascular examination documented in this encounter Results CT Chest w/o Contrast (04/16/2021 10:19 AM CDT) Anatomical Region Laterality Modality Chest, SUBRAD CT BODY, UMP CT CHEST, RAD CT Computed Tomography Specimen (Source) Anatomical Location Collection Method / Collectio n Time Received Time / Laterality Volume Impressions 04/16/2021 3:19 PM CDT IMPRESSION: 1. No calcified atherosclerosis of the n ormal caliber ascending aorta. 2. A few pulmonary nodules measuring up to 4 mm noted. Recommendations for one or multiple inci dental lung nodules < 6mm : ??Low risk patients: No routine follow- up. ??High risk patients: Optional follow-u p CT at 12 months; if unchanged, no further follow-up. *Low Risk: Minimal or absent history of smoking or other known risk factors. *Nonsolid (ground glass) or partly solid nodules may require longer follow-up to exclude indolent adenocarci noma. *Recommendations based on Guidelines for the Management of Incidental Pulmonary Nodules Detected at CT: From t he Fleischner Society 2017, Radiology 2017. PATSY ORTIZ MD Narrative 04/16/2021 3:[address] CHEST WITHOUT CONTRAST 04/16/2021 10:19 AM HISTORY: Chest pain, cardiac cause suspe cted (Ped 0-18y). Coronary artery disease involving prairie island coronary artery of pra[place] heart without angina pectoris. Pre-operative c ardiovascular examination. COMPARISON: None. TECHNIQUE: Volumetric helical acquisitio n of CT images of the chest from the clavicles to the kidneys were a cquired without IV contrast. Radiation dose for this scan was reduced using automated exposure control, adjustment of the mA and/or kV according to patient size, or iterative reconstruction technique. FINDINGS: ??Normal caliber ascending aor ta without calcified coronary atherosclerosis. There are extensive cor onary vascular calcifications and/or stents consistent with coronary a rtery disease. No acute infiltrates. No effusions. A few bilater al pulmonary nodules measuring up to 4 mm noted. Trace peripheral fibro sis and/or atelectasis. No acute findings in the visualized upper a bdomen. No frankly destructive bony lesions. Procedure Note Patsy Ortiz MD - 04/16/2021Fo rmatting of this note might be different from the original. CT CHEST WITHOUT CONTRAST 04/16/2021 10:19 AM HISTORY: Chest pain, cardiac cause suspe cted (Ped 0-18y). Coronary artery disease involving [place] coronary artery of [place] heart without angina pectoris. Pre-operative c ardiovascular examination. COMPARISON: None. TECHNIQUE: Volumetric helical acquisitio n of CT images of the chest from the clavicles to the kidneys were a cquired without IV contrast. Radiation dose for this scan was reduced using automated exposure control, adjustment of the mA and/or kV according to patient size, or iterative reconstruction technique. FINDINGS: Normal caliber ascending aorta without calcified coronary atherosclerosis. There are extensive cor onary vascular calcifications and/or stents consistent with coronary a rtery disease. No acute infiltrates. No effusions. A few bilater al pulmonary nodules measuring up to 4 mm noted. Trace peripheral fibro sis and/or atelectasis. No acute findings in the visualized upper a bdomen. No frankly destructive bony lesions. IMPRESSION: 1. No calcified atherosclerosis of the n ormal caliber ascending aorta. 2. A few pulmonary nodules measuring up to 4 mm noted. Recommendations for one or multiple inci dental lung nodules < 6mm : Low risk patients: No routine follow-up . High risk patients: Optional follow-up CT at 12 months; if unchanged, no further follow-up. *Low Risk: Minimal or absent history of smoking or other known risk factors. *Nonsolid (ground glass) or partly solid nodules may require longer follow-up to exclude indolent adenocarci noma. *Recommendations based on Guidelines for the Management of Incidental Pulmonary Nodules Detected at CT: From t he Fleischner Society 2017, Radiology 2017. 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 documented in this encounter Care Teams Shaper Operator Relationship Specialty Start Date End Date Anatoliy Jackson, PCP - General 05/14/12 Heath More PCP - Internal Medicine INTERNAL MEDICINE - 01/06/14 MD Andreas ENDOCRINOLOGY, END[facility]INE [facility]INIC DIABETES & METABOLISM [facility] [address] [place] [phone] Peter Gipson PCP - Urology 04/02/15 MD Jordan [facility] [address] [facility] [address] [place], [place] [id number] Peter Mcmullen Assigned Musculoskeletal 06/01/20 MD Mahendra Provider [address] [place], [place] [id number] Hallie Maldonado, Assigned Heart and 02/22/2105/18 ACCOUNT EXECUTIVE AGRIBUSINESS DIE CUTTER DIAMOND Vascular Provider [address] [place] [id number] documented as of this encounter
--- OUTSIDE RECORDS SUMMARY | 2022-05-02 12:32 | XMS_ITS | Encounter Summary ---
:1950 Author Organization [place] Address [address] [place] [place] [address] Care Team Providers Name Role Phone Anatoliy Jackson MD Primary Care Provider Heath More MD Unavailable Peter Gipson MD Unavailable Peter Mcmullen MD Unavailable Hallie Maldonado APRN CHAIN HOOKER Unavailable Encounter Details Date Type Department Care Team Description 04/16/2021 Telephone [facility] Mouna Win, RN [address] [place] [address] Social History Tobacco Use Types Packs/Day [...] Telephone Encounter - Mouna Win RN - 04/16/2021 1:[address] Raquel Robert office called to update about patient's up comig CABG.No pre op needs or changes need to be made. documented in this encounter Plan of Treatment Upcoming Encounters Date Type Specialty Care Team Description 05/15/2022 Hospital Encounter Surgery Singh Torres MD [facility] [address] [place] [address] (Wo rk) 05/15/2022 Surgery Surgery Neo Torres MD BLEPHAROPLASTY BILATERAL [facility] UPP[facility], [facility] PTOSIS REPAIR BILATERAL [address] [place] [address] (Wo rk) 06/25/2022 Ancillary Procedure Cardiology Kirk Silver MD [address] [place] [address] (Wo rk) Scheduled Procedures Name Priority Associated [...] on filedocumented in this encounter Care Teams Freight Loading Supervisor Relationship Specialty Start Date End Date Anatoliy Jackson, PCP - General 05/14/12 Heath More PCP - Internal Medicine INTERNAL MEDICINE - 01/06/14 MD Andreas ENDOCRINOLOGY, ENDOCRINE CLINIC DIABETES & METABOLISM OF [facility] [address] [place] [phone] Peter Gipson PCP - Urology 04/02/15 MD Jordan [facility] 360 [facility] [address] [place], [place] [id number] Peter Mcmullen Assigned Musculoskeletal 06/01/20 MD Mahendra Provider [facility] [facility] [address] [place], [place] [address] Hallie Maldonado, Assigned Heart and 02/22/2105/18 OPS ANALYST CHAIN HOOKER Vascular Provider [address] [place] [address] documented as of this encounter
--- OUTSIDE RECORDS SUMMARY | 2022-05-02 12:32 | XMS_ITS | Encounter Summary ---
:1950 Author Organization [place] Address [address] [facility] [place] [address] Care Team Providers Name Role Phone Anatoliy Jackson MD Primary Care Provider Heath More MD Unavailable Peter Gipson MD Unavailable Peter Mcmullen MD Unavailable Hallie Maldonado APRN DOPING SUPERVISOR Unavailable [phone] Encounter Details Date Type Department Care Team Description 04/15/2021 Orders Only [facility] PHYS STANDARD Kendra, Kushal [address] [place] [phone] [address] [phone] [address] [place] [address] (Wo rk) Social History Tobacco Use [...] been in contact with No / Unsure 03/25/2021 3:51 PM CDT someone who was confirmed or 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 documented as of this encounter Plan of Treatment Upcoming Encounters Date Type Specialty Care Team Description 05/15/2022 Hospital Encounter Surgery Singh Torres MD [facility] [address] [place] [address] (Wo rk) 05/15/2022 Surgery Surgery Neo Torres MD BLEPHAROPLASTY BILATERAL [place] [facility] UPPER L IDS, INTERNAL & SURGEONS [facility] PTOSIS REPAIR BILATERAL [address] [place] [address] (Wo rk) 06/25/2022 Ancillary Procedure Cardiology Kirk Silver MD [address] [place] [phone] (Wo rk) Scheduled Procedures Name Priority Associated [...] on filedocumented in this encounter Care Teams Web Site Designer Relationship Specialty Start Date End Date Anatoliy Jackson PCP - General 05/14/12 Heath More PCP - Internal Medicine INTERNAL MEDICINE - 01/06/14 MD Andreas ENDOCRINOLOGY, ENDOCRINE CLINIC DIABETES & METABOLISM [facility] [address] [place] [phone] Peter Gipson PCP - Urology 04/02/15 MD Jordan [facility] [address] [facility] [address] [place] [address] Peter Mcmullen Assigned Musculoskeletal 06/01/20 MD Mahendra Provider [address] [place], [place] [address] Hallie Maldonado, Tom Heart and 02/22/2105/18 SOCIAL SECRETARY DOPING SUPERVISOR Vascular Provider [address] [place] [address] [id number] documented as of this encounter
--- OUTSIDE RECORDS SUMMARY | 2022-05-02 12:32 | XMS_ITS | Encounter Summary ---
:1950 Author Organization [place] Address [address] [facility] [place] [address] Care Team Providers Name Role Phone Anatoliy Jackson MD Primary Care Provider Heath More MD Unavailable Peter Gipson MD Unavailable Peter Mcmullen MD Unavailable Hallie Maldonado APRN SAIL FINISHER MACHINE Unavailable [phone] Encounter Details Date Type Department Care Team Description 04/17/2021 [facility] Kushal Gardner Encounter for screening [facility] rishi Malik MD for other viral diseases [address] [facility] [address] [id number] [place] [address] [phone] (Wo rk) Social History Tobacco Use Types [...] in contact with No / Unsure 04/17/2021 9:02 AM CDT someone who was confirmed or 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 documented as of this encounter Plan of Treatment Upcoming Encounters Date Type Specialty Care Team Description 05/15/2022 Hospital Encounter Surgery Singh Torres MD [facility] [address] [place] [address] (Wo rk) 05/15/2022 Surgery Surgery Neo Torres MD BLEPHAROPLASTY BILATERAL [place] [facility] PTOSIS REPAIR BILATERAL [address] [place] [address] (Wo rk) 06/25/2022 Ancillary Procedure Cardiology Kirk Silver MD [address] [place] [address] (Wo rk) Scheduled Procedures Name Priority Associated [...] Associated Diagnosis Comme nts COVID-19 VIRUS Routine 04/17/2021 9:06 AM Encounter for Result s for this (CORONAVIRUS) BY CDT screening for other proc edure are in PCR viral diseases the results section. documented in this encounter Results Asymptomatic COVID-19 Virus (Coronavirus) by PCR Nose (04/17/2021 9:06 AM CDT) Analysis Performed At Patho logist Time Signature SARS CoV2 PCR Negative Negative 04/18/2021 [facility] 3:40 PM CDT LABORATORY Comment: NEGATIVE: SARS-CoV-2 (COVID-19) RNA not detected, presumed negative. Specimen Anatomical Collection Method Collection Time Receive d Time (Source) Location / / Volume Laterality Swab NASAL STRUCTURE / Non-blood 04/17/2021 9:06 AM 09/0 03/2021 9:07 Unknown Collection / CDT AM CDT Unknown Narrative [facility] - 04/18/2021 3:40 PM C DT Testing was performed using the Aptima SARS-CoV-2 Assay on the Buru Buru Instrument System. Additional in formation about this [...] COVID-19. This test was validated by the [facility] Infectious Diseases Diagnostic Laboratory. This lab oratory is certified under the Clinical Laboratory Improvement Amen dments of 1987 (CLIA-88) as qualified to perform high complexity lab oratory testing. Kushal Gardner MD LAB - MICRO GENERAL ORDERABL ES Performing Organization Address City/State/ZIP Code Phon e Number [facility] [place] [place] [address] Diag. 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 documented in this encounter Care Teams Solid Propellant Processor Relationship Specialty Start Date End Date Anatoliy Jackson, PCP - General 05/14/12 Heath More PCP - Internal Medicine INTERNAL MEDICINE - 01/06/14 MD Andreas ENDOCRINOLOGY, [facility]IC DIABETES & METABOLISM [facility] [address] [facility] [address] [phone] Peter Gipson PCP - Urology 04/02/15 MD Jordan [facility] [address] [address] Peter Mcmullen Assigned Musculoskeletal 06/01/20 MD Mahendra Provider [facility] [address] [facility] [address] [place] [address] Hallie Maldonado, Assigned Heart and 02/22/2105/18 COMPOSITION ROOFER SAIL FINISHER MACHINE Vascular Provider [address] [address] documented as of this encounter
--- OUTSIDE RECORDS SUMMARY | 2022-05-02 12:32 | XMS_ITS | Encounter Summary ---
:1950 Author Organization [place] Address [address] [facility] [place] [address] Care Team Providers Name Role Phone Anatoliy Jackson MD Primary Care Provider Heath More MD Unavailable Peter Gipson MD Unavailable Peter Mcmullen MD Unavailable Hallie Maldonado APRN SCHOOL CHILD CARE ATTENDANT Unavailable [phone] Encounter Details Date Type Department Care Team Description 04/16/2021 Travel Social History Tobacco Use Types Packs/Day [...] 05/15/2022 Hospital Encounter Surgery Singh Torres MD [facility] [address] [place] [address] (Wo rk) 05/15/2022 Surgery Surgery Neo Torres MD BLEPHAROPLASTY BILATERAL [facility] PTOSIS REPAIR BILATERAL [address] [place] [address] (Wo rk) 06/25/2022 Ancillary Procedure Cardiology Kirk Silver MD [address] [place] [phone] (Wo rk) Scheduled Procedures Name Priority Associated [...] on filedocumented in this encounter Care Teams Fire Systems Inspector Relationship Specialty Start Date End Date Anatoliy Jackson, PCP - General 05/14/12 Heath More PCP - Internal Medicine INTERNAL MEDICINE - 01/06/14 MD Andreas ENDOCRINOLOGY, ENDOCRINE CLINIC DIABETES & METABOLISM [facility] [address] [place] [phone] Peter Gipson PCP - Urology 04/02/15 MD Jordan [facility] [address] [place] [address] [address] [place], [place] [id number] Peter Mcmullen Assigned Musculoskeletal 06/01/20 MD Mahendra Provider [facility] [address] [address] Hallie Maldonado, Assigned Heart and 02/22/2105/18 [employer] CHILD CARE ATTENDANT Vascular Provider [address] [id number] documented as of this encounter
--- OUTSIDE RECORDS SUMMARY | 2022-05-02 12:32 | XMS_ITS | Encounter Summary ---
:1950 Author Organization [place] Address [address] [facility] [place] [address] Care Team Providers Name Role Phone Anatoliy Jackson MD Primary Care Provider Heath More MD Unavailable Peter Gipson MD Unavailable Peter Mcmullen MD Unavailable Hallie Maldonado APRN SUPERVISOR INSTANT POTATO PROCESSING Unavailable [phone] Reason for Referral Diagnostic Imaging XR (Routine) - Closed Specialty Diagnoses / Procedures Referred By Contact Refer red To Contact Diagnoses Coronary artery disease involving [place] coronary artery of [place] heart without angina pectoris Pre-operative cardiovascular examination Cardiovas Surgery Procedures XR Chest 2 Views [address] [place] [address] Referral ID Status Reason Start Date Expiration Date Visits Requ ested Visits Authorized [id number] Closed 04/02/2021 04/02/2022 1 1 Reason for [...] ARTERY BYPASS GRAFT (CABG) LL[address] [place] [address] Phone: Referral ID Status Reason Start Date Expiration Date Visits Requ ested Visits Authorized [id number] 1 1 Encounter Details Date Type Department Care Team Description 04/16/2021 Hospital Encounter [facility] Saqib Gardner José Miguel oronary artery disease involving [place] coronary artery of [place] heart without angina pectoris; [facility] MD [place] Pre-operative cardiovascular examination [address] [phone] [place] [address] [phone] Social History Tobacco Use Types Packs/Day Years [...] Take 1 tablet (2.5 90 tablet 1 12/17/2 021 04/25/2021 2.5 MG mg) by mouth [...] Coronary artery disease daily (with meals) involving [place] coronary artery of [place] heart without angina pectoris cloNIDine (CATAPRES) Take [...] artery disease (If pain is not involving [place] relieved 5 minutes coronary artery of after 1st dose call [place] heart without 911) angina pectoris oxyCODONE (ROXICODONE) [...] every tabletIndications: evening Coronary artery disease involving [place] coronary artery of [place] heart without angina pectoris, Hyperlipidemia LDL goal [...] PA [address] [place] [phone] (Wo rk) 05/15/2022 Surgery Surgery Neo Torres MD BLEPHAROPLASTY BILATERAL [facility] [facility] PTOSIS REPAIR BILATERAL [address] [place] [...] Comme nts XR CHEST 2 VIEWS Routine 04/16/2021 10:15 Coronary artery dise ase Results for this AM CDT involving [place] procedure a re in coronary artery of the resul ts [place] heart without section . angina pectoris Pre-operative cardiovascular examination documented in this encounter Results XR Chest 2 Views (04/16/2021 10:15 AM CDT) Anatomical Region Laterality Modality Chest Digital Radiography Specimen (Source) Anatomical Location Collection Method / Collectio n Time Received Time / Laterality Volume Impressions 04/16/2021 2:31 PM CDT IMPRESSION: There are no acute infiltrates. The cardiac silhouette is not enlarged. Pulmonary vasculature is u nremarkable. PATSY ORTIZ MD Narrative 04/16/2021 2:31 PM CDT CHEST TWO VIEWS 04/16/2021 10:15 AM HISTORY: Preop CABG. Coronary artery dis ease involving [place] coronary artery of [place] heart without angina pe ctoris. Preoperative cardiovascular examination. COMPARISON: None. Procedure Note Patsy Ortiz MD - 04/16/2021Fo rmatting of this note might be different from the original. CHEST TWO VIEWS 04/16/2021 10:15 AM HISTORY: Preop CABG. Coronary artery dis ease involving [place] coronary artery of [place] heart without angina pe ctoris. Preoperative cardiovascular examination. COMPARISON: None. IMPRESSION: There are no acute infiltrat es. The cardiac silhouette is not enlarged. Pulmonary vasculature is u nremarkable. 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 [address] [address] Peter Gipson PCP - Urology 04/02/15 MD Jordan [facility] [address] [facility] [address] [place] [address] Peter Mcmullen Assigned Musculoskeletal 06/01/20 MD Mahendra Provider [facility] [facility] [address] [place], [place] [phone] Hallie Maldonado, Assigned Heart and 02/22/2105/18 BROKE WORKER SUPERVISOR INSTANT POTATO PROCESSING Vascular Provider [address] [id number] documented as of this encounter
--- OUTSIDE RECORDS SUMMARY | 2022-05-02 12:32 | XMS_ITS | Encounter Summary ---
:1950 Author Organization [facility] Address [address] [place] [address] Care Team Providers Name Role Phone Anatoliy Jackson MD Primary Care Provider Heath More MD Unavailable Peter Gipson MD Unavailable Peter Mcmullen MD Unavailable Hallie Maldonado APRN [employer] Unavailable [phone] Reason for Visit Auth/Cert Specialty Diagnoses [...] ARTERY-VEIN, TWO ZZC CABG, ARTERY-VEIN, THREE [address] CABG, ARTERY-VEIN, FOUR ZZC CABG, ARTERY-VEIN, FIVE ZZC CABG, ARTERY-VEIN, SIX+ ZZC CABG, ARTERIAL, SINGLE ZZC CABG, ARTERIAL, TWO ZZC CABG, ARTERIAL, THREE ZZC CABG, ARTERIAL, FOUR+ CORONARY ARTERY BYPASS GRAFT (CABG) [facility] [place] [phone] Phone: Referral ID Status Reason Start Date Expiration Date Visits Requ ested Visits Authorized [id number] 1 1 Encounter Details Date Type Department Care Team Description 04/19/2021 Anesthesia Event M [facility] Francisco Mann [place] [facility] MD [address] [place] [address] [facility] [place] [id number] [phone] [place] [phone] (Wo rk) Anesthesia Record Procedure Summary Procedure Name Responsible Anesthesia Start Anesthesia Stop Anesthesiologist Time Time CORONARY ARTERY BYPASS Francisco Mann MD 04/19/21 07 1339 GRAFT X 3 (DOUGLASS-LAD, SV-OM, SV-PDA), WITH LEFT LOWER EXTREMITY ENDOSCOPIC VEIN HARVEST, ON PUMP WITH KARIE READ BY ANESTHESIOLOGIST DR MANN. (N/A Heart) Events Date Time Event Comment 04/19/2021 0625 0637 SURFACE BOSS Ready for Procedure 0726 An Start 0726 An Start Data 0726 AN REASSESS I attest that I have identified and re-evaluated the patient immediately before the induction of anesthesia and I am satisfied that t he anesthetic plan is suitable for the patient's condition and procedure. The f irst vital signs recorded are pre- inducti on. Carlotta Rossi, CALLIE SURFACE BOSS 0735 MD Present 0737 An Induction 0742 An Intubation 0748 KARIE 0748 Quick Note KARIE placed by wa , for monitoring. No complications. Heath Mann MD 0810 Quick Note Radiometer ABL90 Series Arterial Blood Gas Values: pH 7.420 pCO2 38.4mmHg. pO2 231 mmHg. Calculated Values: HCO3 24.9 mmol/L. BE 0.4 mmol/L. T CO2 26.1 mmol/L. Oximetry Values: Hemoglob in 9.6 g/dL. O2 Sat 100 %. Electrolyte Valu es: K+ = 4.1 mmol/L. Na+ = 142 mmol/L. Ca2+ = 4.63 mg/dL. Metabolite Values: Glucose: 182 mg/dL. Lactate: 0.5 mmol/L. Temperat ure Corrected Values: PH(T)c 7.420 PCO2(T)c 3 8.4 mmHg ACT: 145 seconds. 0827 AN INCISION 0839 Present 0858 Quick Note Blood glucose 18 1 1000 Quick Note Blood glucose 18 2 1003 Quick Note Radiometer ABL90 Series Arterial Blood Gas Values: pH 7.352 pCO2 45.4 mmHg. pO2 292 mmHg. Calculated Values: HCO3 25.2 mmol/L. BE -0.5 mmol/L. TCO2 26.5 mmol/L. Oximetry Values: Hemoglob in 8.6 g/dL. O2 Sat 100 %. Electrolyte Valu es: K+ = 4.12 mmol/L. Na+ = 142 mmol/L. Ca2+ = 4.64 mg/dL. Metabolite Values: Glucose: 174 mg/dL. Lactate: 0.9 mmol/L. Temperat ure Corrected Values: PH(T)c 7.352 PCO2(T)c 4 5.4 mmHg ACT: >480seconds. 1021 An Aortic Cannula 1026 An CV Bypass init 1042 Quick Note Blood glucose 15 6 1103 Quick Note Blood glucose 17 5 1120 Present 1159 An CV Bypass cease 1217 Quick Note Radiometer ABL90 Series Arterial Blood Gas Values: pH 7.393 pCO2 42.6 mmHg. pO2 275 mmHg. Calculated Values: HCO3 25.9mmol/L. BE 0.9 mmol/L. TCO2 27.2 mmol/L. Oximetry Values: Hemoglob in 7.3 g/dL. O2 Sat 100 %. Electrolyte Valu es: K+ = 4.5 mmol/L. Na+ = 141 mmol/L. Ca2+ = 4.81 mg/dL. Metabolite Values: Glucose: 182 mg/dL. Lactate: 1.3 mmol/L. Temperat ure Corrected Values: PH(T)c 7.393 PCO2(T)c 4 2.6 mmHg ACT: 113 seconds. 1240 Present 1338 an stop data 1339 An Stop Electronically s igned by Carlotta Rossi APRN CRNA on April 19, 2021 1:39 PM Name Total aminocaproic acid (AMICAR) 5 g in sodium chloride 0.9 % 100 mL infusion 9.65 g dexmedetomidine (PRECEDEX) 4 mcg/mL in sodium chloride 0.9 % 100 mL 72.52 mcg infusion EPINEPHrine drip 0.02 mg/mL (5 mg/250 mL) 0.11 mg HEParin 1000 unit/mL 40,000 Units lidocaine 2% 100 mg ePHEDrine 5 mg/mL 20 mg phenylephrine 0.2 mg/mL (mcg/kg/min) drip 10 mg propofol (DIPRIVAN) injection 10 mg/mL vial 73.5 mg protamine 10mg/mL 350 mg rocuronium 10mg/mL 150 mg ceFAZolin (ANCEF) intermittent infusion 2 g in 100 mL dextrose PRE-MIX 4 g fentaNYL (PF) (SUBLIMAZE) injection 50 mcg 1,000 mcg midazolam (VERSED) injection 1 mg 10 mg phenylephrine (MARINO-SYNEPHRINE) injection 100 mcg insulin regular 1 unit/mL infusion 30 ml 10.62 Units glycopyrrolate 0.2 mg/mL 0.1 mg sugammadex (BRIDION) 200mg/2mL 200 mg lactated ringers infusion 600 mL lactated ringers infusion 750 mL 0.9% NS 1,200 mL albumin 5% 500 mL Agents Name NO HELIOX O2 N2O Air Exp Sevoflurane Exp Isoflurane Exp Desflurane Exp N2O Ins Sevoflurane Ins Isoflurane Ins Desflurane O2 Auxiliary Blood No blood administrations on file. Lines, Drains, and Airways Type Details Placement Removal Incision/Surgical Site 04/19/21; 0918; Left; 04/19/21 0918 by Groin; VEIN HARVEST Lotus Ernst RN SITE Incision/Surgical Site 04/19/21; 0918; Left; 04/19/21 0918 by Knee; VEIN HARVEST SITE Lotus Ernst RN Incision/Surgical Site 04/19/21; 0918; Left; 04/19/21 0918 by Ankle; VEIN HARVEST Lotus Ernst RN SITE Incision/Surgical Site 04/19/21; 1248; 04/19/21 1248 by Midline; Sternum Lotus Ernst RN Peripheral IV 04/19/21; 0642; 16 G; 04/19/21 0642 by 04/22/21 1830 by Left; Hand; Sebastian Trinh, Freddy Bal, Chlorhexidine; RN Injectable; Tolerated well Arterial Line 04/19/21; 0704 (created 04/19/21 0704 by 1 0600 by via procedure Francisco Mann Duemke, Jeff P, manager bench); Chlorhexidine; Anesthesiologist; Sutured; 04/20/21; 0600 Urethral Catheter 04/19/21; 0745; No; 04/19/21 0745 by 04/22/21 0645 by Anesthesia; 16 Lotus Bear, Kentrell Jones RN ETT Placement Date: 04/19/21 0843 by 04/19/21 1735 b y 04/19/21; Placement Carlotta Rossi Eli zabeth, RT Time: 842 (created via CALLIE Armenta SURFACE BOSS procedure documentation); Mask Ventilation: 3; Induction Type: Intravenous; Ease of Intubation: Easy; Technique: Video laryngoscopy; ETT Type: Single; Tube Size: 8 mm; VL Blade Size: Willow scope 4; Grade View: 1; Adjucts: Stylet; Placement Person: SURFACE BOSS; Attempts: 1; Depth: 25 cm Introducer 04/19/21; 1000; 04/19/21 1000 by 04/20/21 1225 b y Internal jugular; Brenda Khanna Dechen, Te nzin, RN Right; 04/20/21; 1225 RN Chest Tube 04/19/21; 1219; Left; 04/19/21 1219 by 04/23/21 1139 by Mediastinal; 32 Lotus Mercedes RN Rote gard, Melissa (STRAIGHT) LETICIA Chest Tube 04/19/21; 1220; Right; 04/19/21 1220 by 04/23/21 1139 by Mediastinal (STRAIGHT); Lotus Ernst RN Rot egard, Melissa, 32 Abhay (STRAIGHT) RN documented in this encounter Social History Tobacco [...] / COVID-19? documented as of this encounter OR Notes Anesthesia Postprocedure Evaluation - Francisco Mann MD - 04/19/2021 3:57 PM CDT Patient: Nikita Anderson Procedure(s): CORONARY ARTERY BYPASS GRAFT X 3 (DOUGLASS-LAD, SV-OM, SV-PDA), WITH LEFT LOWER EXTREMITY ENDOSCOPIC VEIN HARVEST, ON PUMP WITH KARIE READ BY ANESTHESIOLOGIST DR MANN. Diagnosis:CAD (coronary artery disease) [I25.10] Diagnosis Additional Information: No value filed. Anesthesia Type: General Note: Disposition: Admission; ICU ICU Sign Out: Anesthesiologist/ICU physician sign out WAS performed Postop Pain Control: PONV: Neuro/Psych: Airway/Respiratory: Uneventful Sign Out: AIRWAY IN SITU/Resp. Support CV/Hemodynamics: Uneventful Sign Out: Acceptable CV status Other NRE: NONE DID A NON-ROUTINE EVENT OCCUR? No Last vitals: Vitals Value Taken Time BP Temp Pulse 80 04/19/21 1556 Resp 15 04/19/21 1556 SpO2 100 % 04/19/21 1556 Vitals shown include unvalidated device data. Electronically Signed By: Francisco Mann MD April 19, 2021 3:57 PM Anesthesia Procedure Notes - Carlotta Rossi APRN SURFACE BOSS - 04/19/2021 8:43 AM CDTAssociated Order(s): Airway Airway Patient location during procedure: OR ([facility] - Operating Room or Procedural Area) Procedure Start/Stop Times: 04/19/2021 7:42 AM Staff - Anesthesiologist: Francisco Mann MD SURFACE BOSS: Carlotta Rossi APRN SURFACE BOSS Performed By: CRNAIndications and Patient Condition Indications for airway management: gabbi-procedural Induction type:intravenous Mask difficulty assessment: 3 - difficult mask (inadequate, unstable, or two providers) +/- NMBA Final Airway Details Final airway type: endotracheal airway Successful airway: ETT - single Endotracheal Airway Details ETT size (mm): 8.0 Cuffed: yes Successful intubation technique: video laryngoscopy VL Blade Size: Glidescope 4 Grade View of Cords: 1 Adjucts: stylet Position: Right Measured from: gums/teeth Secured at (cm): 25 Bite block used: None Post intubation assessment Number of attempts at approach: 1 Number of other approaches attempted: 0 Secured with: pink tape and commercial tube munoz Ease of procedure: easy Dentition: Intact and Unchanged Anesthesia Procedure Notes - Francisco Mann MD - 04/19/2021 7:04 AM CDT Associated Order(s): Central Line/PA Catheter Placement Central Line/PA Catheter Placement Pre-Procedure Staff - Anesthesiologist: Francisco Mann MD Performed By: Anesthesiologist Location: pre-op Pre-Anesthestic Checklist: patient identified, IV checked, site marked, risks and benefits discussed, informed consent, monitors and equipment checked, pre-op evaluation and at physician/surgeon's request Timeout: Correct Patient: Yes Correct Procedure: Yes Correct Site: Yes Correct Position: Yes Correct Laterality: Yes Procedure Procedure: central line, new line and elective Laterality: right Insertion Site: right, internal jugular. Patient Position: Trendelenburg Sterile Prep All elements of maximal sterile barrier technique followed Patient Prep/Sterile Barriers: draped, hand hygiene, gloves , hat , mask , draped, gown, sterile gel and probe cover Skin prep: Chloraprep Insertion/Injection Local skin infiltrated with 5 mL of 1% lidocaine. Technique: ultrasound guided and Seldinger Technique 1. Ultrasound was used to evaluate the access site. 2. Vein evaluated via ultrasound for patency/adequacy. 3. Using real-time ultrasound the needle/catheter was observed entering the artery/vein. 4. Permanent image was captured and entered into the patient's record. 5. The visualized structures were anatomically normal. 6. There were no apparent abnormal pathologic findings. Catheter size: 9 Fr Cordis. Narrative Secured by: suture Tegaderm and Biopatch dressing used. blood aspirated from all lumens, All lumens flushed: Yes Verification method: Ultrasound, Placement to be verified post-op and X-ray (CXR in ICU) Comments: Ultrasound Interpretation, central venous 1. Ultrasound guidance was used to evaluate potential access sites. 2. Ultrasound was also used to verify the patency of the vessel specified above. 3. Ultrasound was used to visualize the needle entering the vessel. 4. The visualized structures were anatomically normal. 5. There were no apparent abnormal pathological findings. 6. A permanent ultrasound image was saved in the patient's record. Anesthesia Procedure Notes - Francisco Mann MD - 04/19/2021 7:03 AM CDT Associated Order(s): A Line Catheter Placement Arterial Line Procedure Note Pre-Procedure Staff - Anesthesiologist: Francisco Mann MD Performed By: Anesthesiologist Location: pre-op Pre-Anesthestic Checklist: patient identified, IV checked, site marked, risks and benefits discussed, informed consent, monitors and equipment checked, pre-op evaluation and at physician/surgeon's request Timeout: Correct Patient: Yes Correct Procedure: Yes Correct Site: Yes Correct Position: Yes Procedure Procedure: arterial line Diagnosis: CAD Laterality: left Insertion Site: radial (Radial). Sterile Prep All elements of maximal sterile barrier technique followed Patient Prep/Sterile Barriers: hand hygiene, sterile gloves, hat, mask, draped, sterile gown, draped Skin prep: Chloraprep Insertion/Injection Technique: Seldinger Technique Catheter Type/Size: 20 gauge, 1.75 in/4.5 cm quick cath (integral wire) Narrative Secured by: suture Tegaderm dressing used. Arterial waveform: Yes IBP within 10% of NIBP: Yes Anesthesia Preprocedure Evaluation - Francisco Mann MD - 04/18/2021 4:25 PM CDT Anesthesia Pre-Procedure Evaluation Patient: Nikita Anderson : 1950 Preoperative Diagnosis: CAD (coronary artery disease) [I25.10] Procedure : Procedure(s): CORONARY ARTERY BYPASS GRAFT (CABG) Past Medical History: Diagnosis Date ??? Angina pectoris (H) ??? Cancer (H) 1980 Melanoma ??? Coronary artery disease 07/2013, 12/2014 moderate to severe 3v CAD 12/2014 ??? 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 Pure hypercholesterolemia Abstracted 01/20/02 ??? PVD (peripheral vascular disease) (H) ??? Type II or unspecified type diabetes mellitus with neurological manifestations, not stated as uncontrolled(250.60) Abstracted 01/20/02 ??? Unspecified essential hypertension Past Surgical History: Procedure Laterality Date ??? ANGIOGRAM 04/09/2015 Successful PCI to mid-LCX with JAVIER, Successful PCI to OM2 with JAVIER. Successful PCI to Ostial LCX with JAVIER ??? CORONARY ANGIOGRAPHY ADULT ORDER 07/2013 RCA 40-50% stenosis, prox PDA 60%, left circ 50-60%. Mod. nonobstructive CAD ??? CV CORONARY ANGIOGRAM N/A 03/13/2021 Procedure: Coronary Angiogram; Surgeon: Darwin Valero MD; Location: [facility] ??? CV INSTANTANEOUS WAVE-FREE RATIO N/A 03/13/2021 Procedure: Instantaneous Wave-Free Ratio; Surgeon: Darwin Valero MD; Location: [facility] CARDIAC INSTRUMENT REPAIR SPECIALIST ??? HC LEFT HEART CATHETERIZATION 04/01/2016 mild LAD (30%), 50-60% rPDA ? ? HEAD & NECK SURGERY wisdom teeth extractions, subacious cyst removed ??? HEART CATH CORONARY ANGIOGRAM W/LV GRAM 01/03/15 70% prox PDA - FFR 0.77, 70% OM2 - FFR 0.79, 70-80% OM3 -FFR 0.77, 70-80% OM4, Allergies Allergen Reactions ??? Atorvastatin Other (See Comments) Congestion ??? Epinephrine Palpitations Social History Tobacco Use ??? Smoking status: Never Smoker ??? Smokeless tobacco: Never Used Substance Use Topics ??? Alcohol use: Yes Alcohol/week: 0.0 standard drinks Comment: beer and wine, every couple days Wt Readings from Last 1 Encounters: 03/25/21 100.7 kg (222 lb) Anesthesia Evaluation ROS/MED HX ENT/Pulmonary: (-) tobacco use and sleep apnea Neurologic: (+) peripheral neuropathy, - B/L Feet. Cardiovascular: Comment: IMPRESSION: 1. 50-69% diameter stenosis of the right internal carotid artery relative to the distal internal carotid artery diameter. 2. Less than 50% diameter stenosis of the left internal carotid artery relative to the distal internal carotid artery diameter. (+) Dyslipidemia hypertension-Peripheral Vascular Disease-CAD -past OK -stent-2014. 3 GRADY. Previous cardiac testing Echo: Date: 01/02/21 Results: Interpretation Summary Left ventricular systolic function is [...] effusion. Rhythm The rhythm was sinus bradycardia. Stress Test: Date: 12/24/20 Results: Result Text ? The nuclear stress test is abnormal. ??? There is a medium sized area of moderate ischemia in the entire inferior and inferolateral segment(s) of the left ventricle. ??? The stress electrocardiogram was abnormal.and 3.[address] segment depression in the II, III, aVF, V4, V5 and V6 leads ??? Left ventricular function is mildly reduced, EF 47%. ??? A prior study was conducted on 03/24/2016. In comparison witht he prior report, these findings are similar. ECG Reviewed: Date: Results: Cath: Date: 03/13/21 Results: Abnormal stress test Conclusion 1. Coronary artery disease-presentation with exertional dyspnea and angina. Positive nuclear stress test. ?? 1. Left main normal 2. LAD new mid vessel 75% lesion. IFR 0.77 3. CX stents in ostial/proximal mid and distal CX widely patent. New FINANCIAL SUPERVISOR M2 ( previously stented) 4. RCA heavily calcified distal vessel at crux. 60 to 70% lesion in PDA ( unchanged since last study) Plan 1) The options for revascularization include either percutaneous intervention in the LAD and right coronary versus referral for bypass surgery ( DOUGLASS to LAD, SVG to RCA, possible SVG to M2/M1) . It appears unlikely that treatment of the totally occluded second marginal branch would be technically possible or successful long-term. If percutaneous intervention of the distal right coronary is planned, rotational or orbital atherectomy or lithotripsy would likely be required to stent this segment. The patient will see Dr. Solis to determine whether he should be referred for percutaneous intervention, surgery, or a heart team consultation. Coronary Findings Diagnostic Dominance: Right Left Main The vessel was visualized by selective angiography and is moderate in size. There was 0% vessel disease. Left Anterior Descending The vessel was visualized by selective angiography. Ostial 20 to 30% narrowing. 20% mid LAD. New focal 75% narrowing in mid LAD just distal to moderate-sized second diagonal branch. The remainder of the mid and distal LAD exhibits atheromatous change with no significant focal narrowing IFR distal to the new 75% narrowing equals 0.77 Left Circumflex The vessel was visualized by selective angiography. Previously stented ostial/proximal circumflex widely patent with no restenosis. Diffuse 80% narrowing at origin of first marginal branch which bifurcates into superior and inferior rami just after takeoff. The first marginal branch is a small vessel n ear 2 mm. The previously stented second marginal branch is now chronically occluded. There are very faint ipsi-collaterals to the second marginal branch. This occlusion is new since the last angiogram.All previously stented segments are widely patent in other regions of the circumflex. Right Coronary Artery The vessel was visualized by selective angiography. There is diffuse atheromatous change along the entire course of the proximal right coronary. There is a smooth eccentric 30 to 40% narrowing at the takeoff of the second acute marginal branch. The distal right coronary is heavily calcified just before the crux and this calcification extends into the posterior and posterolateral branches. There is anostial/proximal 60 to 70% narrowing at the origin of the posterior descending branch, unchanged since the last film. METS/Exercise Tolerance: Hematologic: (+) anemia, Musculoskeletal: GI/Hepatic: (-) GERD Renal/Genitourinary: (+) renal disease, type: CRI, Endo: (+) type II DM, Diabetic complications: neuropathy. Psychiatric/Substance Use: Infectious Disease: Malignancy: Other: Physical Exam Airway Mallampati: II TM distance: > 3 FB Neck ROM: full Mouth opening: > 3 cm Respiratory Devices and Support Dental no notable dental history (+) caps Cardiovascular cardiovascular exam normal Pulmonary pulmonary exam normal OUTSIDE LABS: CBC: Lab Results Component Value Date WBC 10.5 04/17/2021 WBC 7.1 03/13/2021 HGB 11.1 (L) 04/17/2021 HGB 10.7 (L) 03/13/2021 HCT 33.2 (L) 04/17/2021 HCT 33.1 (L) 03/13/2021 PLT 174 04/17/2021 PLT 167 03/13/2021 BMP: Lab Results Component Value Date NA 136 04/17/2021 NA 136 03/13/2021 POTASSIUM 5.0 04/17/2021 POTASSIUM 4.9 03/13/2021 CHLORIDE 108 04/17/2021 CHLORIDE 107 03/13/2021 CO2 28 04/17/2021 CO2 26 03/13/2021 BUN 49 (H) 04/17/2021 BUN 40 (H) 03/13/2021 CR 1.37 (H) 04/17/2021 CR 1.44 (H) 03/13/2021 GLC 319 (H) 04/17/2021 GLC 236 (H) 03/13/2021 COAGS: Lab Results Component Value Date PTT 30 04/17/2021 INR 1.07 04/17/2021 POC: Lab Results Component Value Date BGM 213 (H) 01/06/2020 HEPATIC: Lab Results Component Value Date ALBUMIN 3.5 04/17/2021 PROTTOTAL 7.1 04/17/2021 ALT 25 04/17/2021 AST 15 04/17/2021 ALKPHOS 51 04/17/2021 BILITOTAL 0.5 04/17/2021 OTHER: Lab Results Component Value Date A1C 6.6 (H) 04/17/2021 RICHIE 9.0 04/17/2021 TSH 2.73 10/12/2013 Anesthesia Plan ASA Status: 3 NPO Status: NPO Appropriate Anesthesia Type: General. - Airway: ETT Induction: Intravenous. Maintenance: Inhalation. Techniques and Equipment: - Lines/Monitors: Arterial Line, KARIE, Central Line, CVP KARIE Absolute Contra-indication: NONE KARIE Relative Contra-indication: NONE - Blood: Blood in Room - Drips/Meds: Dexmed. infusion, Phenylephrine, Epinephrine, Tranexamic acid Consents Anesthesia Plan(s) and associated risks, benefits, and realistic alternatives discussed. Questions answered and patient/underwriting service representative(s) expressed understanding. - Discussed with: Patient - Extended Intubation/Ventilatory Support Discussed: Yes. - Patient is DNR/DNI Status: No Use of blood products discussed: Yes. - Consented: consented to blood products Reason for refusal: other. Postoperative Care Pain management: IV analgesics, Oral pain medications. PONV prophylaxis: Ondansetron (or other 5HT-3) Comments: Induction with Lidocaine, Versed, Fentanyl and Dennis Plan for 1unit of FRED Precedex gt after induction 50mL bsg of NS and micro-dripper for protamine admin No dennis/versed after separation from CPB Potential to extubate in OR H&P reviewed: Unable to attach H&P to encounter due to EHR limitations. H&P Update: appropriate H&P reviewed, patient examined. No interval changes since H&P (within 30 days). Francisco Mann MD documented in this encounter Miscellaneous Notes Anesthesia Care Transfer Note - Flo Carlottasa Geovany APRN SURFACE BOSS - 04/19/2021 1:38 PM CDT Patient: Nikita Anderson Procedure(s): CORONARY ARTERY BYPASS GRAFT X 3 (DOUGLASS-LAD, SV-OM, SV-PDA), WITH LEFT LOWER EXTREMITY ENDOSCOPIC VEIN HARVEST, ON PUMP WITH KARIE READ BY ANESTHESIOLOGIST DR MANN. Diagnosis: CAD (coronary artery disease) [I25.10] Diagnosis Additional Information: No value filed. Anesthesia Type: General Note: Oropharynx: ventilatory support Level of Consciousness: iatrogenic sedation Independent Airway: airway patency not satisfactory and stable Dentition: dentition unchanged Vital Signs Stable: post-procedure vital signs reviewed and stable Report to RN Given: handoff report given Patient transferred to: ICU Comments: Patient connected to SpO2, EKG, and arterial blood pressure transport monitors and accompanied by SURFACE BOSS, anesthesiologist, surgeon (fellow) to ICU room. Patient ventilated by KAREN, anesthesiologist with ambu via ETT with O2 at 15 liters per minute during transport. On arrival to ICU, endotracheal tube position unchanged, equal, bilateral breath sounds auscultated in ICU room, patient placed on ICU ventilator by respiratory therapist, teeth and oral mucosa intact and unchanged at handoff of care. At anesthesia handoff of care, clinical monitors and alarms on and functioning, report on patient's clinical status given to RIVER RAT, report on patient's clinical statusgiven to RN, ICU staff questions answered.Stop data collection on anesthesia machine; Continuous monitoring via portable transport monitor through transport and connection to bedside monitor in ICU. ICU Handoff: Call for PAUSE to initiate/utilize ICU HANDOFF, Identified Patient, Identified Responsible Provider, Reviewed the Pertinent Medical History, Discussed Surgical Course, Reviewed Intra-OP Anesthesia Management and Issues during Anesthesia, Set Expectations for Post Procedure Period and Allowed Opportunity for Questions and Acknowledgement of Understanding Vitals: Vitals Value Taken Time BP Temp Pulse 79 04/19/21 1337 Resp 16 04/19/21 1337 SpO2 100 % 04/19/21 1337 Vitals shown include unvalidated device data. Electronically Signed By: Carlotta Rossi APRN CRNA April 19, 2021 1:38 PM documented in this encounter Plan of Treatment Upcoming Encounters Date Type Specialty Care Team Description 05/15/2022 Hospital Encounter Surgery Singh Torres MD [facility] [address] [place] [address] (Wo rk) 05/15/2022 Surgery Surgery Neo Torres MD BLEPHAROPLASTY BILATERAL [facility] PTOSIS REPAIR BILATERAL [address] [place] [address] (Wo rk) 06/25/2022 Ancillary Procedure Cardiology Kirk Silver MD [address] [place] [address] (Wo rk) Scheduled Procedures Name Priority Associated Diagnoses Date/Time REPAIR, PTOSIS, BILATERAL, Dermatochalas is 05/15/2022 7:30 AM CDT WITH BILATERAL BLEPHAROPLASTY 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 FV AN MA PA CENTRAL Routine 04/19/2021 7:04 AM Re sults for this LINE CATHETER CDT procedure are in PROCEDURE the results section. FV AN A-LINE DUMMY Routine 04/19/2021 7:03 AM Res ults for this PERFORMABLE CDT procedure are i n the results section. documented in this encounter Results ANE AIRWAY ETT PERFORMABLE (04/19/2021 8:43 AM CDT) Narrative Carlotta Rossi APRN SURFACE BOSS - 8:43 AM CDT Carlotta Rossi APRN SURFACE BOSS ? 04/19/2021 ??8:43 AM Airway ? Patient location during procedure : OR ([facility] - Operating Room or Procedural Area) ? Procedure Start/Stop Times: 2020 7:42 AM Staff - ? Anesthesiologist: ??Francisco Mann MD ? SURFACE BOSS: Carlotta Rossi A PRN CRNA ? Performed By: CRNAIndications and Patient Condition ? Indications for airway management : gabbi-procedural ? Induction type:intravenous ? Mask difficulty assessment: 3 - d ifficult mask (inadequate, unstable, or two providers) +/- NMBA Final Airway Details ? Final airway type: endotracheal a irway ? Successful airway: ETT - single Endotracheal Airway Details ? ETT size (mm): 8.0 ? Cuffed: yes ? Successful intubation technique: video laryngoscopy ? VL Blade Size: Glidescope 4 ? Grade View of Cords: 1 ? Adjucts: stylet ? Position: Right ? Measured from: gums/teeth ? Secured at (cm): 25 ? Bite block used: None Post intubation assessment ? Number of attempts at approach: 1 ? Number of other approaches attemp ambrosio: 0 ? Secured with: pink tape and comme rcial tube munoz ? Ease of procedure: easy ? Dentition: Intact and Unchanged Francisco Mann MD MA ANESTHESIA Central Line/PA Catheter Placement (04/19/2021 7:04 AM CDT) Narrative Francisco Mann MD - 04/19/2021 7:04 AM CDT Francisco Mann MD ? 04/19/2021 ??7:05 AM Central Line/PA Catheter Placement Pre-Procedure Staff - ? Anesthesiologist: ??Francisco Mann MD ? Performed By: Anesthesiologist ? Location: pre-op ? Pre-Anesthestic Checklist: patien t identified, IV checked, site marked, risks and benefits discussed, in formed consent, monitors and equipment checked, pre-op evaluation and at physician/surgeon's request Timeout: ? Correct Patient: Yes ? Correct Procedure: Yes ? Correct Site: Yes ? Correct Position: Yes ? Correct Laterality: Yes Procedure Procedure: central line, new line and el ective ? Laterality: right ? Insertion Site: right, internal j ugular. ? Patient Position: Trendelenburg Sterile Prep ? All elements of maximal sterile b arrier technique followed ? Patient Prep/Sterile Barriers: dr moore, hand hygiene, gloves , hat , mask , draped, gown, sterile gel and pro be cover ? Skin prep: Chloraprep Insertion/Injection ? Local skin infiltrated with 5 mL of 1% lidocaine. ? Technique: ultrasound guided and Seldinger Technique ? 1. Ultrasound was used to evaluat e the access site. ? 2. Vein evaluated via ultrasound for patency/adequacy. ? 3. Using real-time ultrasound the needle/catheter was observed entering the artery/vein. ? 4. Permanent image was captured a nd entered into the patient's record. ? 5. The visualized structures were anatomically normal. ? 6. There were no apparent abnorma l pathologic findings. ? Catheter size: 9 Fr Cordis. Narrative ? Secured by: suture ? Tegaderm and Biopatch dressing us ed. ? blood aspirated from all lumens, ? All lumens flushed: Yes ? Verification method: Ultrasound, Placement to be verified post-op and X-ray (CXR in ICU) Comments: ??Ultrasound Interpretation, c entral venous 1. Ultrasound guidance was used to evalu ate potential access sites. 2. Ultrasound was also used to verify th e patency of the vessel specified above. 3. Ultrasound was used to visualize the needle entering the vessel. 4. The visualized structures were anatom ically normal. 5. There were no apparent abnormal patho logical findings. 6. A permanent ultrasound image was save d in the patient's record. Francisco Mann MD MA ANESTHESIA FV AN A-LINE DUMMY PERFORMABLE (04/19/2021 7:03 AM CDT) Narrative Francisco Mann MD - 04/19/2021 7:03 AM CDT Francisco Mann MD ? 04/19/2021 ??7:04 AM Arterial Line Procedure Note Pre-Procedure Staff - ? Anesthesiologist: ??Francisco Mann MD ? Performed By: Anesthesiologist ? Location: pre-op ? Pre-Anesthestic Checklist: patien t identified, IV checked, site marked, risks and benefits discussed, in formed consent, monitors and equipment checked, pre-op evaluation and at physician/surgeon's request Timeout: ? Correct Patient: Yes ? Correct Procedure: Yes ? Correct Site: Yes ? Correct Position: Yes Procedure Procedure: arterial line ? Diagnosis: CAD ? Laterality: left ? Insertion Site: radial (Radial). Sterile Prep ? All elements of maximal sterile b arrier technique followed ? Patient Prep/Sterile Barriers: edmond[place] nd hygiene, sterile gloves, hat, mask, draped, sterile gown, draped ? Skin prep: Chloraprep Insertion/Injection ? Technique: Seldinger Technique ? Catheter Type/Size: 20 gauge, 1.7 5 in/4.5 cm quick cath (integral wire) Narrative ? Secured by: suture ? Tegaderm dressing used. ? Arterial waveform: Yes ? IBP within 10% of NIBP: Yes Francisco Mann MD MA ANESTHESIA documented in this encounter Visit Diagnoses Not on filedocumented in this encounter Administered Medications Inactive Administered Medications - up to 3 most recent administrations Medication Order MAR Action Action Date Dose Rate Site albumin human 5 % injection New Bag 04/19/2021 8:10 AM CDT Intravenous, CONTINUOUS PRN, Starting on Thu04/19/21 at 0750, Anesthesia Intra-op New Bag 04/19/2021 7:50 AM CDT aminocaproic acid (AMICAR) 5 g Rate/Dose Change 04/19/2021 9:00 AM 1 g/hr 20 mL/hr in sodium chloride 0.9 % 100 mL CDT infusion Intravenous, CONTINUOUS PRN, Starting on Thu04/19/21 at 0800, Anesthesia Intra-op New Bag 04/19/2021 8:00 AM CDT 5 g/hr 100 mL/hr ceFAZolin (ANCEF) intermittent infusion 2 g in Given 0 04/19/2021 12:15 PM CDT 2 g 100 mL dextrose PRE-MIX Routine, 2 g, Intravenous, PRE-OP/PRE-PROCEDURE, Starting on Thu04/19/21 at 0544, For 1 dose, Give first dose within 1 hour PRIOR to incision. If patient weight is greater than or equal to 120 kg increase dose to 3 g., Indications: Perioperative Pharmacoprophylaxis, Pre-procedure Given 04/19/2021 8:15 AM CDT 2 g dexmedetomidine (PRECEDEX) 4 New Bag 04/19/2021 8:27 AM 0.2 mcg/kg /hr 4.9 mL/hr mcg/mL in sodium chloride 0.9 % CDT 100 mL infusion Intravenous, CONTINUOUS PRN, Starting on Thu04/19/21 at 0827, Anesthesia Intra-op ePHEDrine injection Given 04/19/2021 9:39 AM CDT 5 mg Intravenous, PRN, Starting on Thu04/19/21 at 0751, Anesthesia Intra-op Given 04/19/2021 8:08 AM CDT 5 mg Given 04/19/2021 8:05 AM CDT 5 mg EPINEPHrine drip 0.02 mg/mL Restarted 04/19/2021 1:15 PM 0.02 mc g/kg/min 5.88 mL/hr (5 mg/250 mL) CDT Intravenous, CONTINUOUS PRN, Starting on Thu04/19/21 at 1131, Anesthesia Intra-op New Bag 04/19/2021 11:31 AM CDT 0.02 mcg/kg/min 5.88 mL/hr fentaNYL (PF) (SUBLIMAZE) injection 50 m cg Given 04/19/2021 12:23 PM CDT 50 mcg 50 mcg, Intravenous, PRE-OP/PRE-PROCEDURE, Starting on Thu04/19/21 at 0613, For 2 doses, Give in pre-op only. DO not give if patient is somnolent, low Respiratory Rate or low SpO2., Pre-procedure Given 04/19/2021 12:20 PM CDT 100 mcg Given 04/19/2021 9:47 AM CDT 100 mcg glycopyrrolate (ROBINUL) injection Given 04/19/2021 8:56 AM CDT 0.1 mg Intravenous, PRN, Administer over 1-2 Minutes, Starting on Thu04/19/21 at 0856, Anesthesia Intra-op heparin (porcine) injection Given 04/19/2021 9:54 AM CDT 40,000 Units Intravenous, PRN, Starting on Thu04/19/21 at 0954, Anesthesia Intra-op insulin regular (HumuLIN Rate/Dose Change 04/19/2021 11:03 2 Units/hr 2 mL/hr R,NovoLIN R) infusion (1 AM CDT unit/mL) ADULT/PEDS Intravenous, CONTINUOUS PRN, Starting on Thu04/19/21 at 0810, Anesthesia Intra-op Rate/Dose Change 04/19/2021 10:42 AM CDT 1 Units/hr 1 mL/hr New Bag 04/19/2021 8:10 AM CDT 2 Units/hr 2 mL/hr lactated ringers infusion New Bag 04/19/2021 7:43 AM CDT at 25 mL/hr, Intravenous, CONTINUOUS, IF patient NOT on dialysis., Pre-procedure, Starting on Thu04/19/21 at 0600, Until Thu04/19/21 at 1321 lactated ringers infusion New Bag 04/19/2021 7:26 AM CDT at 100 mL/hr, Intravenous, CONTINUOUS, Pre-procedure, Starting on Thu04/19/21 at 0630, Until Thu04/19/21 at 1321 lidocaine 2% injection (MDV) Given 04/19/2021 7:37 AM CDT 100 mg Other, PRN, Starting on Thu04/19/21 at 0739, Anesthesia Intra-op midazolam (VERSED) injection 1 mg Given 04/19/2021 [...] Given 04/19/2021 7:37 AM CDT 7 mg phenylephrine (MARINO-SYNEPHRINE) injection New Bag 04/19/2021 7:51 AM CDT 100 mcg Intravenous, CONTINUOUS PRN, Starting on Thu04/19/21 at 0751, Anesthesia Intra-op phenylephrine 0.2 mg/mL Rate/Dose Change 04/19/2021 12:36 0.4 mcg/k g/min 11.76 mL/hr (mcg/kg/min) drip PM CDT Intravenous, CONTINUOUS PRN, Starting on Thu04/19/21 at 0744, Anesthesia Intra-op Rate/Dose Change 04/19/2021 12:34 PM CDT 0.3 mcg/kg/min 8.82 mL/hr Restarted 04/19/2021 12:31 PM CDT 0.2 mcg/kg/min 5.88 mL/hr propofol (DIPRIVAN) Rate/Dose Change 04/19/2021 3:24 20 mcg/kg/min 11 .8 mL/hr injection 10 mg/mL vial PM CDT Intravenous, CONTINUOUS PRN, Starting on Thu04/19/21 at 1324, Anesthesia Intra-op Rate/Dose Change 04/19/2021 2:22 PM CDT New Bag 04/19/2021 1:24 PM CDT 50 mcg/kg/min 29.4 mL/hr protamine injection Given 04/19/2021 12:02 PM CDT 350 mg Intravenous, PRN, Starting on Thu04/19/21 at 1202, Anesthesia Intra-op rocuronium injection Given 04/19/2021 11:17 AM CDT 10 mg Intravenous, PRN, Starting on Thu04/19/21 at 0739, Anesthesia Intra-op Given 04/19/2021 10:34 AM CDT 20 mg Given 04/19/2021 9:17 AM CDT 20 mg sodium chloride 0.9% infusion New Bag 04/19/2021 12:29 PM CDT Intravenous, CONTINUOUS PRN, Anesthesia Intra-op, Starting on Thu04/19/21 at 0732, Until Thu04/19/21 at 1339 New Bag 04/19/2021 7:32 AM CDT sugammadex (BRIDION) injection Given 04/19/2021 1:02 PM CDT 200 mg Intravenous, PRN, Starting on Thu04/19/21 at 1302, Anesthesia Intra-op documented in this encounter Care Teams Hand Screen Printer Relationship Specialty Start Date End Date Anatoliy Jackson, PCP - General 05/14/12 Heath More PCP - Internal Medicine INTERNAL MEDICINE - 01/06/14 MD Andreas ENDOCRINOLOGY, ENDOCRINE CLINIC DIABETES & METABOLISM OF [facility] [address] [facility] [address] [phone] Peter Gipson PCP - Urology 04/02/15 MD Jodran [facility] [address] [facility] [address] [place], [place] [id number] Peter Mcmullen Assigned Musculoskeletal 06/01/20 MD Mahendra Provider [address] [place], [place] [address] Hallie Maldonado, Assigned Heart and 02/22/2105/18 GMAT TUTOR FARM FORESTRY AND GARDEN WORKERS Vascular Provider [address] [address] documented as of this encounter
--- OUTSIDE RECORDS SUMMARY | 2022-05-02 12:32 | XMS_ITS | Encounter Summary ---
:1950 Author Organization [place] Address [address] [place] [address] Care Team Providers Name Role Phone Anatoliy Jackson MD Primary Care Provider Heath More MD Unavailable Peter Gipson MD Unavailable Peter Mcmullen MD Unavailable Hallie Maldonado APRN SOCIAL SERVICE WORKER Unavailable [phone] Encounter Details Date Type Department Care Team Description 04/12/2021 Orders Only M [facility] Kushal Gardner Coronar y artery Heart Clinic Anu Malik MD disease involving [address] [place] coronary artery [place] [id number] [address] of [place] heart [phone] [place] [address] without angina [phone] pectoris (Prima ry Dx) (Work) Social History Tobacco Use Types Packs/Day Years [...] [address] [place] [address] (Wo rk) 05/15/2022 Surgery Surgery Neo Torres MD BLEPHAROPLASTY BILATERAL [place] [facility] SURGEONS [place] PTOSIS REPAIR BILATERAL [address] [place] [address] (Wo rk) 06/25/2022 Ancillary Procedure Cardiology Kirk Silver MD [address] [place] [address] (Wo rk) Scheduled Procedures Name Priority Associated Diagnoses Date/Time REPAIR, PTOSIS, BILATERAL, Dermatochalas is 05/15/2022 7:30 AM CDT WITH BILATERAL BLEPHAROPLASTY 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 REPAIR, ECTROPION, EYE, Dermatochalasis 05/15/2022 7:30 AM CDT BILATERAL 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 documented as of this encounter Visit Diagnoses Diagnosis Coronary artery disease involving [place] coronary artery of [place] heart without angina pectoris - Primary 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 [address] [place], [place] [phone] Peter Mcmullen Assigned Musculoskeletal 06/01/20 MD Mahendra Provider [facility] [facility] [address] [place], [place] [address] Hallie Maldonado, Assigned Heart and 02/22/2105/18 CONTAINER MAKER SOCIAL SERVICE WORKER Vascular Provider [address] [address] documented as of this encounter
--- OUTSIDE RECORDS SUMMARY | 2022-05-02 12:32 | XMS_ITS | Encounter Summary ---
:1950 Author Organization [place] Address [address] [facility] [place] [address] Care Team Providers Name Role Phone Anatoliy Jackson MD Primary Care Provider Heath More MD Unavailable Peter Gipson MD Unavailable Peter Mcmullen MD Unavailable Hallie Maldonado APRN ACTOR UNDERSTUDY Unavailable [phone] Reason for Referral Diagnostic Imaging Ultrasound (Routine) - Closed Specialty Diagnoses / Procedures Referred By Contact Refer red To Contact Diagnoses Coronary artery disease involving [place] coronary artery of [place] heart without angina pectoris Pre-operative cardiovascular examination Other specified symptoms and signs involving the circulatory and respiratory systems [facility] Cardiovasc Surgery Procedures US Carotid Bilateral [address] [place] [address] Referral ID Status Reason Start Date Expiration Date Visits Requ ested Visits Authorized [id number] Closed 04/02/2021 04/02/2022 1 1 Reason for [...] ARTERY BYPASS GRAFT (CABG) LL[address] [place] [address] Phone: Referral ID Status Reason Start Date Expiration Date Visits Requ ested Visits Authorized [id number] 1 1 Encounter Details Date Type Department Care Team Description 04/16/2021 Hospital Encounter [facility] Kushal Gardner oronary artery disease involving [place] coronary artery of [place] heart without angina pectoris; [facility] MD [place] Pre-operative cardiovascular examination ; [address] Other specified symptoms and signs involving the circulatory and respiratory systems [address] [facility] [address] [phone] [place] [address] [phone] Social History Tobacco Use Types Packs/Day Years [...] Coronary artery disease daily (with meals) involving [place] coronary artery of [place] heart without angina pectoris cloNIDine (CATAPRES) Take [...] artery disease (If pain is not involving [place] relieved 5 minutes coronary artery of after 1st dose call [place] heart without 911) angina pectoris oxyCODONE (ROXICODONE) [...] every tabletIndications: evening Coronary artery disease involving [place] coronary artery of [place] heart without angina pectoris, Hyperlipidemia LDL [...] [address] [place], [place] [address] (Wo rk) 05/15/2022 Surgery Surgery Neo Torres MD BLEPHAROPLASTY BILATERAL [place] [facility], INTERNAL & SURGEONS PA PTOSIS REPAIR BILATERAL [address] [place], [place] [address] (Wo rk) 06/25/2022 Ancillary Procedure Cardiology Kirk Silver MD [address] [place] [address] (Wo rk) Scheduled Procedures Name Priority Associated [...] Priority Date/Time Associated Diagnosis Comme nts US CAROTID Routine 04/16/2021 11:28 Coronary artery disease Results for this BILATERAL AM CDT involving [place] procedure a re in coronary artery of the resul ts [place] heart without section . angina pectoris Pre-operative cardiovascular examination Other specified symptoms and signs involving the circulatory and respiratory systems documented in this encounter Results US Carotid Bilateral (04/16/2021 11:28 AM CDT) Anatomical Region Laterality Modality Vascular, Head Ultrasound Specimen (Source) Anatomical Location Collection Method / Collectio n Time Received Time / Laterality Volume Impressions 04/16/2021 12:49 PM CDT IMPRESSION: ?? 1. 50-69% diameter stenosis of the right internal carotid artery relative to the distal internal carotid artery diameter. 2. Less than 50% diameter stenosis of th e left internal carotid artery relative to the distal internal carotid artery diameter. KIARA LAGOS, Narrative 04/16/2021 12:49 PM CDT BILATERAL CAROTID ULTRASOUND ??April 16, 2021 11:28 AM HISTORY: Preoperative coronary artery by pass graft. Coronary artery disease involving [place] coronary artery of [place] heart without angina pectoris. Pre-operative cardiovas cular examination. Other specified symptoms and signs involving t he circulatory and respiratory systems. COMPARISON: None. RIGHT CAROTID FINDINGS: Plaque at the ca rotid bulb and internal carotid artery. Right ICA PSV: ??140 ??cm/sec. Right ICA EDV: ??35 cm/sec. Right ICA/CCA PSV Ratio: ??1.47. ?? These indicate 50-69% diameter stenosis of the right ICA. ?? Right Vertebral: Antegrade flow. Right ECA: Antegrade flow. LEFT CAROTID FINDINGS: Plaque in the com mon carotid, carotid bulb and internal carotid artery. Left ICA PSV: ??113 ??cm/sec. Left ICA EDV: ??36 cm/sec. Left ICA/CCA PSV Ratio: ??0.86. ?? These indicate less than 50% diameter st enosis of the left ICA. ?? Left Vertebral: Antegrade flow. Left ECA: Antegrade flow. Causes of Decreased Accuracy: None. Procedure Note Kiara Lagos DO - 2020 BILATERAL CAROTID ULTRASOUND April 11:28 AM HISTORY: Preoperative coronary artery by pass graft. Coronary artery disease involving [place] coronary artery of [place] heart without angina pectoris. Pre-operative cardiovas cular examination. Other specified symptoms and signs involving t he circulatory and respiratory systems. COMPARISON: None. RIGHT CAROTID FINDINGS: Plaque at the ca rotid bulb and internal carotid artery. Right ICA PSV: 140 cm/sec. Right ICA EDV: 35 cm/sec. Right ICA/CCA PSV Ratio: 1.47. These indicate 50-69% diameter stenosis of the right ICA. Right Vertebral: Antegrade flow. Right ECA: Antegrade flow. LEFT CAROTID FINDINGS: Plaque in the com mon carotid, carotid bulb and internal carotid artery. Left ICA PSV: 113 cm/sec. Left ICA EDV: 36 cm/sec. Left ICA/CCA PSV Ratio: 0.86. These indicate less than 50% diameter st enosis of the left ICA. Left Vertebral: Antegrade flow. Left ECA: Antegrade flow. Causes of Decreased Accuracy: None. IMPRESSION: 1. 50-69% diameter stenosis of the right internal carotid artery relative to the distal internal carotid artery diameter. 2. Less than 50% diameter stenosis of th e left internal carotid artery relative to the distal internal carotid artery diameter. 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 documented in this encounter Care Teams Commercial Leasing Manager Relationship Specialty Start Date End Date Anatoliy Jackson, PCP - General 05/14/12 Heath More PCP - Internal Medicine INTERNAL MEDICINE - 01/06/14 MD Andreas ENDOCRINOLOGY, ENDOCRINE CLINIC DIABETES & METABOLISM [facility] [address] [facility] [address] [place] [phone] Peter Gpison PCP - Urology 04/02/15 MD Jordan [facility] [address] [facility] [address] [place], [place] [phone] Peter Mcmullen Assigned Musculoskeletal 06/01/20 MD Mahendra Provider [address] [place], [place] [address] Hallie Maldonado, Assigned Heart and 02/22/2105/18 MEDICAL RECEPTIONIST ACTOR UNDERSTUDY Vascular Provider [address] [id number] documented as of this encounter
--- OUTSIDE RECORDS SUMMARY | 2022-05-02 12:33 | XMS_ITS | Encounter Summary ---
:1950 Author Organization [place] Address [address] [facility] [place] [address] Care Team Providers Name Role Phone Anatoliy Jackson MD Primary Care Provider Heath More MD Unavailable Peter Gipson MD Unavailable Peter Mcmullen MD Unavailable Hallie Maldonado APRN ORCHESTRA LEADER Unavailable [phone] Reason for Visit Reason Onset Date Comments Schedule Surgery 04/08/2021 Encounter Details Date Type Department Care Team Description 04/08/2021 Telephone [employer] [place] [facility] Kushal [facility] Surgery Clinic Anu Malik MD [address] [facility] [address] [address] [address] [place] [address] (Wo rk) Social History Tobacco Use Types [...] this encounter Miscellaneous Notes Telephone Encounter - Nina Stroud - 04/08/2021 3:02 PM CDT Per task, pt would like to move their surgery from 04/22 to 04/19. LM with new date and asked them to call back if they have any questions documented in this encounter Plan of Treatment Upcoming Encounters Date Type Specialty Care Team Description 05/15/2022 Hospital Encounter Surgery Singh Torres MD [facility] [address] [place] [address] (Wo rk) 05/15/2022 Surgery Surgery Neo Torres MD BLEPHAROPLASTY BILATERAL [place] [facility], INTERNAL & SURGE[facility] PTOSIS REPAIR BILATERAL [address] [place] [address] (Wo rk) 06/25/2022 Ancillary Procedure Cardiology Kirk Silver MD [address] [place] [address] (Wo rk) Scheduled Procedures Name Priority Associated [...] on filedocumented in this encounter Care Teams Mobile Heavy Equipment Mechanic Relationship Specialty Start Date End Date Anatoliy Jackson, PCP - General 05/14/12 Heath More PCP - Internal Medicine INTERNAL MEDICINE - 01/06/14 MD Andreas ENDOCRINOLOGY, ENDOCRINE CLINIC DIABETES & METABOLISM [facility] [address] [facility] [address] [place] [phone] Peter Gipson PCP - Urology 04/02/15 MD Jordan [facility] [address] [facility] [address] [place], [place] [phone] Peter Mcmullen Assigned Musculoskeletal 06/01/20 MD Mahendra Provider [address] [place], [place] [address] Hallie Maldonado, Assigned Heart and 02/22/2105/18 RADIO ENGINEER ORCHESTRA LEADER Vascular Provider [address] [address] documented as of this encounter
--- OUTSIDE RECORDS SUMMARY | 2022-05-02 12:33 | XMS_ITS | Encounter Summary ---
:1950 Author Organization [place] Address [address] [facility] [place] [address] Care Team Providers Name Role Phone Anatoliy Jackson MD Primary Care Provider Heath More MD Unavailable Peter Gipson MD Unavailable Peter Mcmullen MD Unavailable Hallie Maldonado APRN VIRTUAL CUSTOMER ASSISTANT Unavailable [phone] Reason for Visit Reason Onset Date Comments prep call 03/11/2021 Encounter Details Date Type Department Care Team Description [facility] [address] [facility] [address] [place] [address] Social History Tobacco Use [...] been in contact with No / Unsure 02/18/2021 9:33 AM CDT someone who was confirmed or 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 documented as of this encounter Miscellaneous Notes Telephone Encounter - Laureen Emerson RN - 03/11/2021 10:13 PM CDT Called patient to review coronary angiogram/cath prep instructions. Patient is scheduled for a Left heart cath/coronary angiogram at [facility], on date 03/13/2021. Check in time is at 10:00AM and procedure time is at 12:00PM. Advised patient not eat or drink after midnight on 03/12/2021 . Patient is not taking a diuretic. Advised to discuss insulin dosing with PMD. Patient is not taking Metformin or other oral diabetic medications. Pt does have a dexcom [address] in [address] on his arm. Patient is not taking an anticoagulant. Advised to take 325mg of Aspirin the morning of the procedure. Advised to take their other daily medications the morning of the procedure with small sips of water. Verified patient does NOT have an allergy to contrast dye. Pt completed COVID test 03/10/2021 with NEGATIVE results. Verified patient has a responsible adult to drive them home from the hospital and stay with them for24 hours after the procedure. Confirmed follow-up appointment scheduled 03/18/21date at 10:30AM time with Hallie Maldonado VIRTUAL CUSTOMER ASSISTANT provider at the [facility]. Patient had no questions about their prep instructions. Annita KELLY [facility] 03/12/21 1:21 PM documented in this encounter Plan of Treatment Upcoming Encounters Date Type Specialty Care Team Description 05/15/2022 Hospital Encounter Surgery Singh Torres MD [facility] [address] [place] [address] (Wo rk) 05/15/2022 Surgery Surgery Neo Torres MD BLEPHAROPLASTY BILATERAL [facility] [place] [facility] [place] PTOSIS REPAIR BILATERAL [address] [place] [id number] (Wo rk) 06/25/2022 Ancillary Procedure Cardiology Kirk Silver MD [address] [place] [id number] (Wo rk) Scheduled Procedures Name Priority Associated [...] on filedocumented in this encounter Care Teams Newsperson Relationship Specialty Start Date End Date Anatoliy Jackson, PCP - General 05/14/12 Heath More PCP - Internal Medicine INTERNAL MEDICINE - 01/06/14 MD Andreas ENDOCRINOLOGY, [facility] DIABETES & METABOLISM [facility] [address] [place] [id number] Peter Gipson PCP - Urology 04/02/15 MD Jordan [facility] [address] [facility] [address] [place], [place] [id number] Peter Mcmullen Assigned Musculoskeletal 06/01/20 MD Mahendra Provider [address] [place], [place] [address] Hallie Maldonado, Assigned Heart and 02/22/2105/18 FEATURES EDITOR VIRTUAL CUSTOMER ASSISTANT Vascular Provider [address] [place] [id number] documented as of this encounter
--- OUTSIDE RECORDS SUMMARY | 2022-05-02 12:33 | XMS_ITS | Encounter Summary ---
:1950 Author Organization [place] Address [address] [facility] [place] [address] Care Team Providers Name Role Phone Anatoliy Jackson MD Primary Care Provider Heath More MD Unavailable Peter Gipson MD Unavailable Peter Mcmullen MD Unavailable Hallie Maldonado APRN ROPE MACHINE SETTER Unavailable [phone] Encounter Details Date Type Department Care Team Description 03/13/2021 Travel Social History Tobacco Use Types Packs/Day [...] been in contact with No / Unsure 03/13/2021 10:03 AM CDT someone who was confirmed or 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 documented as of this encounter Plan of Treatment Upcoming Encounters Date Type Specialty Care Team Description 05/15/2022 Hospital Encounter Surgery Singh Torres MD [facility] [address] [place] [id number] (Wo rk) 05/15/2022 Surgery Surgery Neo Torres MD BLEPHAROPLASTY BILATERAL [facility] [place] [place] [facility] [place] PTOSIS REPAIR BILATERAL [address] [place] [address] (Wo rk) 06/25/2022 Ancillary Procedure Cardiology Kirk Silver MD [address] [place] [id number] (Wo rk) Scheduled Procedures Name Priority Associated [...] filedocumented in this encounter Care Teams Technical Administrator Relationship Specialty Start Date End Date Anatoliy Jackson, PCP - General 05/14/12 Heath More PCP - Internal Medicine INTERNAL MEDICINE - 01/06/14 MD Andreas ENDOCRINOLOGY, ENDOCRINE CLINIC DIABETES & METABOLISM [facility] [address] [place] [phone] Peter Gipson PCP - Urology 04/02/15 MD Jordan [facility] [address] [place] [address] [address] [place], [place] [id number] Peter Mcmullen Assigned Musculoskeletal 06/01/20 MD Mahendra Provider [facility] [address] [address] Hallie Maldonado, Assigned Heart and 02/22/2105/18 TORCH STRAIGHTENER ROPE MACHINE SETTER Vascular Provider [address] [place] [id number] documented as of this encounter
--- OUTSIDE RECORDS SUMMARY | 2022-05-02 12:33 | XMS_ITS | Encounter Summary ---
:1950 Author Organization [place] Address [address] [place] [address] Care Team Providers Name Role Phone Anatoliy Jackson MD Primary Care Provider Heath More MD Unavailable Peter Gipson MD Unavailable Peter Mcmullen MD Unavailable Hallie Maldonado APRN WATER TREATMENT PLANT ENGINEER Unavailable [phone] Encounter Details Date Type Department Care Team Description 04/08/2021 Care Coordination [facility] Heart RostZahida bueno, Clinic Genia RN [address] [place] [address] Social History Tobacco Use Types Packs/Day Years [...] documented as of this encounter Progress Notes Debra Jacob RN - 04/08/2021 9:06 AM CDT Returned call from VM, pt and wanting to move OR date to 04/19. Message sent to OR spares scheduler to check availability and confirm with pt if available. Confirmed pt has contact info for future questions/concerns. documented in this encounter Plan of Treatment Upcoming Encounters Date Type Specialty Care Team Description 05/15/2022 Hospital Encounter Surgery Singh Torres MD [facility] [address] [place] [address] (Wo rk) 05/15/2022 Surgery Surgery Neo Torres MD BLEPHAROPLASTY BILATERAL [facility] [place] [facility] [place] PTOSIS REPAIR BILATERAL [address] [place] [address] (Wo rk) 06/25/2022 Ancillary Procedure Cardiology Kirk Silver MD [address] [place] [address] (Wo rk) Scheduled Procedures Name Priority Associated [...] on filedocumented in this encounter Care Teams Fence Installer Foreman Relationship Specialty Start Date End Date Anatoliy Jackson, PCP - General 05/14/12 Heath More PCP - Internal Medicine INTERNAL MEDICINE - 01/06/14 MD Andreas ENDOCRINOLOGY, ENDOCRINE CLINIC DIABETES & METABOLISM [facility] [address] [facility] [address] [place] [phone] Peter Gipson PCP - Urology 04/02/15 MD Jordan [facility] [address] [facility] [address] [place], [place] [phone] Peter Mcmullen Assigned Musculoskeletal 06/01/20 MD Mahendra Provider [address] [place], [place] [address] Hallie Maldonado, Assigned Heart and 02/22/2105/18 HYDROMETEOROLOGY TEACHER WATER TREATMENT PLANT ENGINEER Vascular Provider [address] [place] [address] documented as of this encounter"
--- OUTSIDE RECORDS SUMMARY | 2022-05-02 12:33 | XMS_ITS | Encounter Summary ---
:1950 Author Organization [place] Address [address] 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 Procedures HC CATH PLACE/CORONARY ANGIO, IMG SUPER/INTERP Coronary Angiogram [address] [place], [place] [address] Phone: Fax: Referral ID Status Reason Start Date Expiration Date Visits Requ ested Visits Authorized [id number] 1 1 Encounter Details Date Type Department Care Team Description 03/13/2021 [facility] Asad Dumas MD [address] [place] [id number] Abnormal stress test; Encounter [facility] Darwin Valero MD [address] [place] [id number] Coronary artery disease involving solomon coronary artery of solomon heart without angina pectoris; Dept Abnormal stress test; [address] Dyspnea on exertion; [place] Coronary erick ry chronic total occlusion; [id number] Atherosclerosis of solomon co ronary artery of solomon heart, angina presence unspecified [phone] Social History Tobacco Use Types Packs/Day Years [...] Sign Reading Time Taken Comments Blood Pressure 166/65 03/13/2021 5:49 PM CDT Pulse 65 03/13/2021 5:49 PM CDT Temperature 36.5 ??C (97.7 ??F) 03/13/2021 3:42 PM CDT Respiratory Rate 16 03/13/2021 5:49 PM CDT Oxygen Saturation 99% 03/13/2021 5:49 PM CDT Inhaled Oxygen Concentration - - Weight 101.2 kg (223 lb) 03/13/2021 10:34 AM CDT Height 180.3 cm (5' 11) 03/13/2021 10:34 AM CDT Body Mass Index 31.1 03/13/2021 10:34 AM CDT documented in this encounter Discharge Instructions Discharge InstructionsYelena Hobbs RN - 03/13/2021 4:57 PM CDT 20 documented in this encounter Medications at Time of Discharge Medication Sig Dispensed Refills Start Date End Date Continuous Blood Gluc 0 Sensor (DEXCOM G6 SENSOR) MISC cyanocobalamin (VITAMIN Take 1,000 mcg by 0 B-12) 1000 MCG tablet mouth daily ONE TOUCH ULTRA TEST as directed 100 0 06/22/2006 STRPIndications: Type II or unspecified type diabetes mellitus without mention of complication, not stated as uncontrolled sertraline (ZOLOFT) 50 Take 50 mg by mouth 0 MG tablet daily Sleep doctor recommends taking at bedtime SYRINGE B-D MICRO FINE as directed 100 0 09/18/200408/11 CC SYRINGES Turmeric 500 MG CAPS Take 1 capsule by 0 mouth every morning amLODIPine (NORVASC) Take 1 tablet (2.5 90 [...] 1 tablet 2.5mg to total 7.5mg aspirin (ASPIRIN) 81 MG Take 81 mg by mouth 0 04/25/2021 EC tablet daily carvedilol (COREG) 6.25 Take 1 tablet (6.25 120 tablet 3 02/202105/01/2021 MG tabletIndications: mg) by mouth 2 times Coronary artery disease daily (with meals) involving solomon coronary artery of solomon heart without angina pectoris cloNIDine (CATAPRES) Take 0.1 mg by mouth 0 04/18/2021 0.1 MG tablet 2 times daily Copper Gluconate 2 MG Take 1 capsule by 0 04/25/2021 CAPS mouth daily Ferrous Sulfate (IRON Take 50 mg by mouth 0 04/23/2021 PO) daily gabapentin (NEURONTIN) TAKE 1 CAPSULE(100 90 capsule 1 02/2504/18/2021 100 MG MG) BY MOUTH THREE capsuleIndications: DDD TIMES DAILY (degenerative disc disease), lumbar glucosamine-chondroitin Take 1 capsule by 0 04/23/2021 500-400 MG CAPS per mouth daily capsule Insulin Lispro (HUMALOG Inject Subcutaneous 3 0 04/25/2021 SC) times daily (with meals) Sliding scale + carb coverage LANTUS 100 UNIT/ML SC as directed 100 0 09/18/2004 SOLN lisinopril-hydrochlorot Take 1 tablet by 90 tablet 2 202004/25/2021 hiazide (ZESTORETIC) mouth daily 20-12.5 MG tabletIndications: Hypertension nitroGLYcerin Place 1 tablet (0.4 25 tablet 3 12/14/2020 (NITROSTAT) 0.4 MG mg) under the tongue sublingual every 5 minutes as tabletIndications: needed for chest pain Coronary artery disease (If pain is not involving solomon relieved 5 minutes coronary artery of after 1st dose call solomon heart without 911) angina pectoris rosuvastatin (CRESTOR) Take 1 tablet (40 mg) 90 tablet 3 10/17/2021 40 MG by mouth every tabletIndications: evening Coronary artery disease involving solomon coronary artery of solomon heart without angina pectoris, Hyperlipidemia LDL goal <70, S/P coronary artery stent placement traZODone (DESYREL) 50 Take 50 mg by mouth 0 04/18/2021 MG tablet At Bedtime documented as of this encounter Progress Notes Lea Coughlin RN - 03/13/2021 3:16 PM CDT PRIMARY DIAGNOSIS: TR BAND RECOVERY OUTPATIENT/OBSERVATION GOALS TO BE MET BEFORE DISCHARGE: 1. TR band status: in place 2. Radial pulse and CMS (circulation, motion, sensation) are WDL: Yes 3. Bleeding or hematoma present at site: No 4. Activity restriction education reviewed with patient: Yes. [place] wrist band applied, arm board applied at bedside. 5. Stable vital signs: Yes 6. ADLs back to baseline: No 7. Activity and level of assistance: has not been OOB. 8. Interpretation of rhythm per cell phone repair technician: Normal sinus and Sinus bradycardia Dosimetrist Nurse Safe discharge environment identified: Yes Barriers to discharge: Yes Entered by: Lea Coughlin 03/13/2021 3:16 PM Please review provider order for any additional goals. Nurse to notify provider when observation goals have been met and patient is ready for discharge. Lea Coughlin RN - 03/13/2021 1:03 PM CDT LETICIA giving report: Roma KELLY receiving report: Lea KELLY S: Procedure performed: Angiogram- To follow up with surgery vs complex procedure at [facility] B: Why procedure needed: GRADY- previous procedures A: Assessment of area: Right rad artery access- sheath out at 1310 TR Band on 10ml R: Recommendations: follow up with Cards Family updated: per documented in this encounter Procedure Notes Darwin Valero MD - 03/13/2021 1:22 PM CDTAssociated Order(s): *Cath without PCI Post-Procedure Diagnose(s): Abnormal stress test; Coronary artery disease involving solomon coronary artery of solomon heart without angina pectoris; Dyspnea on exertion [facility] Procedure: *Cath without PCI Date/Time: 03/13/2021 1:18 PM Performed by: Darwin Valero MD Authorized by: Darwin Valero MD [employer] Site Marked: Yes Prior Images Obtained and Reviewed: Yes Required items: Required blood products, implants, devices and special equipment available Patient identity confirmed: Verbally with patient Patient was reevaluated immediately before administering moderate or deep sedation or anesthesia Confirmation Checklist: Patient's identity using two indicators Time out: Immediately prior to the procedure a time out was called [place] Protocol: the Joint Commission [place] Protocol was followed Preparation: Patient was prepped and draped in usual sterile fashion ANESTHESIA Anesthesia: Local infiltration Local Anesthetic: Lidocaine 1% without epinephrine SEDATION Patient Sedated: Yes Sedation: Fentanyl and midazolam Vital signs: Vital signs monitored during sedation PROCEDURE Patient Tolerance: Patient tolerated the procedure well with no immediate complications Describe Procedure: Procedure 1) CAG 2) IFR mid LAD 0.77 Approach RTR Complications none Findings LMCA normal LAD new mid vessel 75% lesion IFR 0.75 CX LOGISTICS AND PLANNING MANAGER M2 ( previously stented) other sites widely patent RCA heavily calcified distal 60 to 70% lesion Assess : He has 3 vessel disease, however the RCA and LAD lesions are amenable to PCI. The RCA is heavily calcified and would need atherectomy. Options are PCI RCA/LAD versus CAB with DOUGLASS to LAD and SVG to PDA possibly M2 if large enough. Plan To discuss with Dr.Ho Valero Length of time physician/provider present for 1:1 monitoring during sedation: 30 documented in this encounter Miscellaneous Notes Plan of Care - Martinez Leach RN - 03/13/2021 6:34 PM CDT Patient's After Visit Summary was reviewed with patient and/or significant other. Patient verbalized understanding of After Visit Summary, recommended follow up and was given an opportunity to ask questions. Discharge medications sent home with patient/family: YES, No, Not applicable Discharged with spouse Plan of Care - Martinez Leach RN - 03/13/2021 6:29 PM CDT PRIMARY DIAGNOSIS: TR BAND RECOVERY OUTPATIENT/OBSERVATION GOALS TO BE MET BEFORE DISCHARGE: TR band status: removing air every 15 minutes Radial pulse and CMS (circulation, motion, sensation) are WDL: Yes Bleeding or hematoma present at site: No Activity restriction education reviewed with patient: Yes. [place] wrist band applied, arm board applied Stable vital signs: Yes, Elevated BP but stable ADLs back to baseline: Yes Activity and level of assistance: Ambulating independently. Interpretation of rhythm per cell phone repair technician: Sinus bradycardia Dosimetrist Nurse Safe discharge environment identified: Yes Barriers to discharge: No Entered by: Martinez Leach 03/13/2021 6:29 PM BP (!) 166/65 (BP Location: Right arm) Pulse 65 Temp 97.7 ??F (36.5 ??C) (Oral) Resp 16 Ht 1.803 m (5' 11) Wt 101.2 kg (223 lb) SpO2 99% BMI 31.10 kg/m?? CMS intact, No bleeding/hematoma, Pulse +2. Wrist restraint in place and activity restriction reinforced. Discharge instructions provided and all questions answered. Instructed to follow up with Dr. Calhoun team regarding angiogram follow-up. IV and Tele discontinued and discharged home with . Please review provider order for any additional goals. Nurse to notify provider when observation goals have been met and patient is ready for discharge. Pharmacy-Admission Medication History - Rabia Pabon [facility] - 03/13/2021 3:17 PM CDT Admission medication history interview status for this patient is complete. See [facility] admission navigator for allergy information, prior to admission medications and immunization status. Medication history interview done, indicate source(s): Patient Medication history resources (including written lists, pill bottles, clinic record): Home med list Pharmacy: [facility] Changes made to [employer] medication list: Added: cont glucose monitor Changed: gabapentin TID --> BID at 7pm and bedtime, added lantus dose Reported as Not Taking: none Removed: terbinafine, tramadol Actions taken by pharmacist (provider contacted, etc):None Additional medication history information:None Medication reconciliation/reorder completed by provider prior to medication history? N (Y/N) For patients on insulin therapy: Do you use sliding scale insulin based on blood sugars? Y What is your pre-meal insulin coverage? 10-40 units of lispro Do you typically eat three meals a day? y How many times do you check your blood glucose per day? Cont monitor How many episodes of hypoglycemia do you typically have per month? - Do you have a Continuous Glucose Monitor (CGM)? y Prior to Admission medications Medication Sig Last Dose Taking? Auth Provider amLODIPine (NORVASC) 2.5 MG tablet Take 1 tablet (2.5 mg) by mouth daily Take 1 tablet (2.5mg) in addition to 1 tablet Amlodipine 5mg for a total dose of 7.5mg 03/12/2021 at Unknown time Yes Fidencio Solis MD amLODIPine (NORVASC) 5 MG tablet Take 1 tablet (5 mg) by mouth daily Take 1 tablet (5mg) in additionto 1 tablet 2.5mg to total 7.5mg 03/12/2021 at Unknown time Yes Fidencio Solis MD ASPIRIN 81 PO Take 81 mg by mouth daily 03/13/2021 at Unknown time Yes Reported, Patient carvedilol (COREG) 6.25 MG tablet Take 1 tablet (6.25 mg) by mouth 2 times daily (with meals) 03/13/2021 at Unknown time Yes Fidencio Solis MD cloNIDine (CATAPRES) 0.1 MG tablet Take 0.1 mg by mouth 2 times daily 03/13/2021 at Unknown time Yes Reported, Patient Continuous Blood Gluc Sensor (DEXCOM G6 SENSOR) MISC Continuous Yes Unknown, Entered By History Copper Gluconate 2 MG CAPS Take by mouth daily 03/13/2021 at Unknown time Yes Reported, Patient cyanocobalamin (VITAMIN B-12) 1000 MCG tablet Take 1,000 mcg by mouth daily 03/13/2021 at Unknown timeYes Reported, Patient Ferrous Sulfate (IRON PO) Take 50 mg by mouth daily 03/13/2021 at Unknown time Yes Reported, Patient gabapentin (NEURONTIN) 100 MG capsule TAKE 1 CAPSULE(100 MG) BY MOUTH THREE TIMES DAILY Patient taking differently: Take 100 mg by mouth 2 times daily At 7pm and bedtime 03/12/2021 at Unknown time Yes Peter Mcmullen MD glucosamine-chondroitin 500-400 MG CAPS per capsule Take 1 capsule by mouth daily Past Month at Unknown time Yes Reported, Patient Insulin Lispro (HUMALOG SC) Inject Subcutaneous 4 times daily (before meals and nightly) Sliding scale + carb coverage 03/12/2021 at Unknown time Yes Reported, Patient LANTUS 100 UNIT/ML SC SOLN as directed Patient taking differently: Inject 74 Units Subcutaneous every evening 03/12/2021 at Unknown time Yes Roberto Linder MD lisinopril-hydrochlorothiazide (ZESTORETIC) 20-12.5 MG tablet Take 1 tablet by mouth daily 03/13/2021 at Unknown time Yes Fidencio Solis MD rosuvastatin (CRESTOR) 40 MG tablet Take 1 tablet (40 mg) by mouth every evening 03/12/2021 at Unknowntime Yes Fidencio Solis MD sertraline (ZOLOFT) 50 MG tablet Take 50 mg by mouth daily 03/13/2021 at Unknown time Yes Reported, Patient traZODone (DESYREL) 50 MG tablet Take 50 mg by mouth At Bedtime 03/12/2021 at Unknown time Yes Reported, Patient Turmeric 500 MG CAPS Take 1 capsule by mouth every evening 03/12/2021 at Unknown time Yes Reported, Patient nitroGLYcerin (NITROSTAT) 0.[address] 1 tablet (0.4 mg) under the tongue every 5 minutes as needed for chest pain (If pain is not relieved 5 minutes after 1st dose call 911) Unknown at Unknown time Fidencio Solis MD ONE TOUCH ULTRA TEST STRP as directed Unknown at Unknown time Roberto Linder MD SYRINGE B-D MICRO FINE 1/2 CC SYRINGES as directed Unknown at Unknown time Roberto Linder MD Pre-Procedure - Darwin Valero MD - 03/13/2021 12:06 PM CDT GENERAL PRE-PROCEDURE: Procedure: CAG possible PCI Date/Time: 03/13/2021 1:13 PM Verbal consent obtained?: Yes Written consent obtained?: Yes Risks and benefits: Risks, benefits and alternatives were discussed DC Plan: Appropriate discharge home plan in place for patients who are going home after procedure Consent given by: Patient Patient states understanding of procedure being performed: Yes Patient's understanding of procedure matches consent: Yes Procedure consent matches procedure scheduled: Yes Expected level of sedation: Moderate Appropriately NPO: Yes Mallampati : Grade 2- soft palate, base of uvula, tonsillar pillars, and portion of posterior pharyngeal wall visible Lungs: Lungs clear with good breath sounds bilaterally Heart: Normal heart sounds and rate History & Physical reviewed: History and physical reviewed and no updates needed I have examined the patient, reviewed the history, medications and pre procedural tests.He has knownCAD sp PCI in setting of diabetes. He presents with progressive exertional dyspnea and an abnormal nuclear stress test. I have explained to the patient the risks of , [place], stroke, hematoma, possible urgent bypass surgery for failed PCI, use of stents, thienopyridine agents, possible peripheral vascular complications, arrhythmia, the use of FFR in clinical decision-making and alternative of medical therapy alone in regards to left heart catheterization, left ventriculography, coronary angiography, and possible percutaneous coronary intervention. The patient voiced understanding and wishes to proceed. The patient has a good right radial pulse, normal ulnar pulse and a normal Slava's sign. documented in this encounter Plan of Treatment Upcoming Encounters Date Type Specialty Care Team Description 05/15/2022 Hospital Encounter Surgery Singh Torres MD [facility] [address] [place] [address] (Wo rk) 05/15/2022 Surgery Surgery Neo Torres MD BLEPHAROPLASTY BILATERAL [facility] PTOSIS REPAIR BILATERAL [address] [place] [address] (Wo rk) 06/25/2022 Ancillary Procedure Cardiology Kirk Silver MD [address] [place] [id number] (Wo rk) Scheduled Procedures Name Priority Associated Diagnoses Date/Time REPAIR, PTOSIS, BILATERAL, Dermatochalas is 05/15/2022 7:30 AM CDT WITH BILATERAL BLEPHAROPLASTY 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 CASE REQUEST ACUPRESSURIST Routine 03/13/2021 1:18 PM Abnormal stre ss Results for this CDT test procedure are in Coronary artery the results disease involving section. solomon coronary artery of solomon heart without angina pectoris Dyspnea on exertion CV CARDIAC Routine 03/13/2021 1:15 PM Coronary artery Result s for this CATHERIZATION CDT disease involving procedure are in solomon coronary the results artery of solomon section. heart without angina pectoris Abnormal stress test CV CARDIAC Routine 03/13/2021 1:15 PM Coronary artery Result s for this CATHERIZATION CDT disease involving procedure are in solomon coronary the results artery of solomon section. heart without angina pectoris Abnormal stress test EKG 12-LEAD, TRACING STAT 03/13/2021 11:02 Res ults for this ONLY AM CDT procedure are i n the results section. INR STAT 03/13/2021 10:47 Results for this AM CDT procedure are i n the results section. PARTIAL THROMBOPLASTIN STAT 03/13/2021 10:47 R esults for this TIME AM CDT procedure are i n the results section. HCG QUANTITATIVE STAT 03/13/2021 10:47 Results for this AM CDT procedure are i n the results section. BASIC METABOLIC PANEL STAT 03/13/2021 10:47 Re sults for this AM CDT procedure are i n the results section. CBC WITH PLATELETS STAT 03/13/2021 10:47 Resul ts for this AM CDT procedure are i n the results section. documented in this encounter Results (ABNORMAL) Glucose by meter (03/13/2021 4:40 PM CDT) P athologist Signature GLUCOSE BY 236 (H) 70 - 99 03/13/2021 [facility] METER POCT mg/dL 4:46 PM CDT POC Specimen Anatomical Collection Method Collection Time Receive d Time (Source) Location / / Volume Laterality Blood BLOOD SPECIMEN / 03/13/2021 4:40 PM 03/13 4:46 Unknown CDT PM CDT Leacher Invasive MD BORGES - NADER POCT Performing Organization Address City/State/ZIP Code Phon e Number [place] [address] Care Lab [address] Lab (1st floor, no room number) *Cath without PCI (03/13/2021 1:18 PM CDT) Narrative Darwin Valero MD - 03/13/2021 1: 18 PM CDT Darwin Valero MD ? 03/13/2021 ??1:22 PM [facility] Procedure: *Cath without PCI Date/Time: 03/13/2021 1:18 PM Performed by: Darwin Valero MD Authorized by: Darwin Valero MD [employer]AL [employer]OC[employer] Site Marked: Yes Prior Images Obtained and Reviewed: ??Ye s Required items: Required blood products, implants, devices and special equipment available ?? Patient identity confirmed: ??Verbally w ith patient Patient was reevaluated immediately befo re administering moderate or deep sedation or anesthesia Confirmation Checklist: ??Patient's iden tity using two indicators Time out: Immediately prior to the proce dure a time out was called ?? [place] Protocol: the Joint Commission [place] Protocol was followed ?? Preparation: Patient was prepped and dorothy ped in usual sterile fashion ?? ANESTHESIA Anesthesia: Local infiltration Local Anesthetic: ??Lidocaine 1% without epinephrine SEDATION Patient Sedated: Yes ?? Sedation: ??Fentanyl and midazolam Vital signs: Vital signs monitored durin g sedation ?? PROCEDURE Patient Tolerance: ??Patient tolerated t he procedure well with no immediate complications Describe Procedure: Procedure 1) CAG 2) IFR mid LAD 0.77 Approach RTR Complications none Findings LMCA normal LAD new mid vessel 75% lesion IFR 0.75 CX LOGISTICS AND PLANNING MANAGER M2 ( previously stented) other si mauro widely patent RCA heavily calcified distal 60 to 70% l esion Assess : He has 3 vessel disease, howeve r the RCA and LAD lesions are amenable to PCI. The RCA is heavily calc ified and would need atherectomy. Options are PCI RCA/LAD versus CAB with DOUGLASS to LAD and SVG to PDA possibly M2 if large enough. Plan To discuss with Dr.Ho Valero Length of time physician/provider presen t for 1:1 monitoring during sedation: 30 Darwin Valero MD CV CARDIAC CATH ORDERABLES CV CORONARY ANGIOGRAM, CV INSTANTANEOUS WAVE-FREE RATIO (03/13/2021 1:15 PM CDT) Anatomical Region Laterality Modality Radio Fluoroscopy Specimen (Source) Anatomical Location Collection Method / Collectio n Time Received Time / Laterality Volume Narrative 03/13/2021 1:39 PM CDT 1. ??Coronary artery disease-presentation with exertional dyspnea and angina. ??Positive nuclear stress test. 1. Left main normal 2. LAD new mid vessel 75% lesion. IFR 0. 77 3. CX stents in ostial/proximal mid and distal CX widely patent. New LOGISTICS AND PLANNING MANAGER M2 ( previously stented) 4. RCA heavily calcified distal vessel a t crux. 60 to 70% lesion in PDA ( unchanged since last study) Coronary Findings Diagnostic Dominance: Right Left Main: The vessel was visualized by selective angiography and is moderate in size. There was 0% vessel disease. Left Anterior Descending: The vessel was visualized by selective angiography. Ostial 20 to 30% narrowing. 20% mid LAD. New focal 75% narrowing in mid LAD just distal to moderate-sized second diagonal br anch. The remainder of the mid and dista l LAD exhibits atheromatous change with no significant focal narrowing IFR distal to the new 75% narrowing equals 0.77 Left Circumflex: The vessel was visualiz ed by selective angiography. Previously stented ostial/proximal circumflex widely patent with no restenosis. Diffuse 80% narrowing at origin of first marginal bra nch which bifurcates into superior and i nferior rami just after takeoff. The first marginal branch is a small vessel near 2 mm. The previously stented second marginal branch is now chronically occluded. There are very faint ipsi-collaterals t o the second marginal branch. This occlusion is new since the last angiogram. All previously stented segments are widely patent in other regions of the circumflex. Right Coronary Artery: The vessel was vi sualized by selective angiography. There is diffuse atheromatous change along the entire course of the proximal right coronary. There is a smooth eccentric 30 to 40% narrowing at the takeoff of the seco nd acute marginal branch. The distal right coronary is heavily calcified just before the crux and this calcification extends into the posterior and posterolateral branches. There is an ostial/proximal 6 0 to 70% narrowing at the origin of the posterior descending branch, unchanged since the last film. Intervention No interventions have been documented. Plan 1) The options for revascularization inc lude either percutaneous intervention in the LAD and right coronary versus referral for bypass surgery ( DOUGLASS to LAD, SVG to RCA, possible SVG to M2/M1) . It appe ars unlikely that treatment of the total ly occluded second marginal branch would be technically possible or successful long-term. If percutaneous intervention of the distal right coronary is planned, ro tational or orbital atherectomy or litho tripsy would likely be required to stent this segment. The patient will see Dr. Solis to determine whether he should be referred for percutaneous intervention, surgery, or a heart team consultation. Comments/Patient Narrative 70-year-old man with known coronary erick ry disease status post previous extensive stent implantation in the circumflex with diabetes mellitus, pretension, dyslipidemia, obesity, and chronic anemia. He p resents with progressive exertional dysp edith and a nuclear stress test demonstrating extensive inferolateral wall ischemia. Diagnostic coronary angiography with possible revascularization was advised by his referring b and b gang worker. Cath Procedure details 1. Coronary angiogram The right radial region was prepped and draped in standard fashion and infiltrated with 1% lidocaine. The right radial artery was entered percutaneously with a micropuncture kit and with Seldinger techn ique a 6 [employer] Terumo slender sheath wa s placed in the right radial artery. We administered 5000 units of intravenous unfractionated heparin. We administered 2.5 mg / 400 mcg of verapamil/nitroglycerin intra-arterially. We advanced a 5 Frenc h Robinson catheter under fluoroscopic guidance and placed the catheter in the ascending aorta. We aspirated, flushed, and zeroed the system. We seated the catheter in the ostium of the right coronary. Rig coronary angiography was performed in orthogonal views. I noted a new total occlusion of the pre viously stented second marginal branch, a new lesion in the mid LAD, and no change in right coronary anatomy. The right coronary was heavily calcified with a sign ificant narrowing at the origin of the p osterior descending branch. I determined that the patient was likely not a candidate for ad hoc PCI, but felt we should perform IFR in the LAD to assist with making decisions about revascularization. IFR mid LAD ( 0.77) I exchanged for an EBU guide. We prepare d a [employer] Omni wire coronary pressure wire system. We seated the guide in the ostium of the left main. We advanced the pressure transducer into the proximal lef t main just outside the tip of the john ng catheter. We flushed and normalized. We then advanced the pressure transducer distal to the narrowing in the mid LAD, we flushed the catheter.. The IFR returne d at 0.77. I withdrew the pressure trans ducer back to the proximal left main and noted no catheter drift. I felt that the IFR was markedly positive. We took a final view with coronary angiography to anali e certain there was no change in left co ronary anatomy after instrumentation. The study was carefully reviewed. The ca theter was removed from the sheath. The sheath was removed from the wrist. A TR band was placed with good hemostasis. The patient was returned back to the observation area. No complications were observed The attending interventional cardiologis t was present and supervised all critical aspects the procedure. Hallie Joel DOUGHNUT MAKER SENIOR OFFICE SUPPORT ASSISTANT [facility] CV CARDIAC CATH ORDERABLES EKG 12-lead, tracing only (03/13/2021 11:02 AM CDT) Component Value Ref Range Test Analysis Performed Pathologis t Method Time At Signature Systolic Blood mmHg RADIOLOGY Pressure RESULTS Diastolic Blood mmHg RADIOLOGY Pressure RESULTS Ventricular Rate 44 BPM RADIOLOGY RESULTS Atrial Rate 44 BPM RADIOLOGY RESULTS MS Interval 176 ms RADIOLOGY RESULTS QRS Duration 106 ms RADIOLOGY RESULTS QT 468 ms RADIOLOGY RESULTS QTc 400 ms RADIOLOGY RESULTS P [place] 63 degrees RADIOLOGY RESULTS R AXIS 10 degrees RADIOLOGY RESULTS T [place] 75 degrees RADIOLOGY RESULTS Interpretation Sinus bradycardia RADIOLO GY ECG Abnormal ECG RESULTS Confirmed by MD LINDA, SUNI HIRSCH ([id number]), desk editor RHODA GARCIA ([id number]) on 03/13/2021 1:18:46 PM Specimen Anatomical Collection Method Collection Time Receive d Time (Source) Location / / Volume Laterality 03/13/2021 11:02 03/13/2021 1:18 AM CDT PM CDT Fidencio Solis MD ECG ORDERABLES Performing Organization Address City/State/ZIP Code Phon e Number RADIOLOGY RESULTS HCG quantitative (03/13/2021 10:47 AM CDT) Analysis Performed At Patho logist Time Signature hCG Quantitative <1 0 - 5 IU/L 03/13/2021 [facility] 11:17 AM CDT Comment: Adult: 0-5 IU/L for healthy non- person Neonates: Should be within normal ranges by 2 days after Specimen Anatomical Collection Method / Collection Time Recei shyla Time (Source) Location / Volume Laterality Blood BLOOD SPECIMEN / Venipuncture / 03/13/2021 10:47 03/13 Unknown Unknown AM CDT 10:52 AM CDT Fidencio Solis MD LAB - BLOOD ORDERABLES Performing Organization Address City/State/ZIP Code [place]on [place] [address] Care [facility] [address] Lab (1st floor, no room number) Partial thromboplastin time (03/13/2021 10:47 AM CDT) P athologist Signature aPTT 32 22 - 38 03/13/2021 [facility] Seconds 11:06 AM CDT Comment: Effective 02/17/2021, the refere nce range for this assay has changed. Specimen Anatomical Collection Method / Collection Time Recei shyla Time (Source) Location / Volume Laterality Blood BLOOD SPECIMEN / Venipuncture / 03/13/2021 10:47 03/13 Unknown Unknown AM CDT 10:52 AM CDT Fidencio Solis MD LAB - BLOOD ORDERABLES Performing Organization Address [facility] [place] [address] Care [facility] [address] Lab (1st floor, no room number) INR (03/13/2021 10:47 AM CDT) P athologist Signature INR 0.93 0.85 - 1.15 03/13/2021 [facility] 11:06 AM CDT Comment: Effective 02/17/2021, the refere nce range for this assay has changed. Specimen Anatomical Collection Method / Collection Time Recei shyla Time (Source) Location / Volume Laterality Blood BLOOD SPECIMEN / Venipuncture / 03/13/2021 10:47 03/13 Unknown Unknown AM CDT 10:52 AM CDT Fidencio Solis MD LAB - BLOOD ORDERABLES Performing Organization Address [facility] [place] [address] Care Lab [address] Lab (1st floor, no room number) (ABNORMAL) CBC with platelets (03/13/2021 10:47 AM CDT) Patholo gist Method Time Signature WBC Count 7.1 4.0 - 11.0 03/13/2021 [facility] 10e3/uL 10:59 AM CDT RBC Count 3.68 (L) 4.40 - 03/13/2021 [facility] 5.90 10:59 AM CDT 10e6/uL Hemoglobin 10.7 (L) 13.3 - 03/13/2021 [facility] 17.7 g/dL 10:59 AM CDT Hematocrit 33.1 (L) 40.0 - 03/13/2021 [facility] 53.0 % 10:59 AM CDT MCV 90 78 - 100 03/13/2021 [facility] fL 10:59 AM CDT MCH 29.1 26.5 - 03/13/2021 [facility] 33.0 pg 10:59 AM CDT MCHC 32.3 31.5 - 03/13/2021 [facility] 36.5 g/dL 10:59 AM CDT RDW 12.7 10.0 - 03/13/2021 [facility] 15.0 % 10:59 AM CDT Platelet Count 167 150 - 450 03/13/2021 [facility] 10e3/uL 10:59 AM CDT Specimen Anatomical Collection Method / Collection Time Recei shyla Time (Source) Location / Volume Laterality Blood BLOOD SPECIMEN / Venipuncture / 03/13/2021 10:47 03/13 Unknown Unknown AM CDT 10:52 AM CDT Fidencio Solis MD LAB - BLOOD ORDERABLES Performing Organization Address City/State/ZIP Code [place] [phone] Care [facility] [address] Lab (1st floor, no room number) (ABNORMAL) Basic metabolic panel (03/13/2021 10:47 AM CDT) [facility] Method Time Signature Sodium 136 133 - 144 03/13/2021 [facility] mmol/L 11:15 AM CDT Potassium 4.9 3.4 - 5.3 03/13/2021 [facility] mmol/L 11:15 AM CDT Chloride 107 94 - 109 03/13/2021 [facility] mmol/L 11:15 AM CDT Carbon Dioxide 26 20 - 32 03/13/2021 [facility] (CO2) mmol/L 11:15 AM CDT Anion Gap 3 3 - 14 03/13/2021 [facility] mmol/L 11:15 AM CDT Urea Nitrogen 40 (H) 7 - 30 03/13/2021 [facility] mg/dL 11:15 AM CDT Creatinine 1.44 (H) 0.66 - 03/13/2021 [facility] 1.25 mg/dL 11:15 AM CDT Calcium 8.6 8.5 - 10.1 03/13/2021 [facility] mg/dL 11:15 AM CDT Glucose 295 (H) 70 - 99 03/13/2021 [facility] mg/dL 11:15 AM CDT GFR Estimate 49 (L) >60 03/13/2021 [facility] mL/min/1.7 11:15 AM CDT 3m2 Comment: As of February [...] Laterality Blood BLOOD SPECIMEN / Venipuncture / 03/13/2021 10:47 03/13 Unknown Unknown AM CDT 10:52 AM CDT Fidencio Solis MD LAB - BLOOD ORDERABLES Performing Organization Address City/State/ZIP Code [place] [address] Care [facility] [address] Lab (1st floor, no room number) documented in this encounter Visit Diagnoses Diagnosis Abnormal stress test Other nonspecific abnormal cardiovascula r system function study Coronary artery disease involving solomon coronary artery of solomon heart without angina pectoris Dyspnea on exertion Other dyspnea and respiratory abnormalit y Coronary artery chronic total occlusion Coronary atherosclerosis of unspecified type of vessel, solomon or graft Atherosclerosis of solomon coronary arter y of solomon heart, angina presence unspecified Status post coronary angiogram Other postprocedural status Coronary artery disease involving solomon coronary artery of solomon heart without angina pectoris Abnormal stress test Other nonspecific abnormal cardiovascula r system function study 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 documented in this encounter Admitting Diagnoses Diagnosis Coronary artery disease involving solomon coronary artery of solomon heart without angina pectoris Abnormal stress test Other nonspecific abnormal cardiovascula r system function study Status post coronary angiogram Other postprocedural status documented in this encounter Administered Medications Inactive Administered Medications - up to 3 most recent administrations Medication Order MAR Action Action Date Dose Rate Site 0.9% sodium chloride BOLUS Intravenous, 250 mL, ONCE PRN, other, for symptomatic hypotension with femoral sheath removal, Starting on Thu03/13/21 at 1316, For 8 hours, Notify provider if patient is not responsive to the initial bolus of Sodi um Chloride 0.9%. acetaminophen (TYLENOL) tablet 650 mg 650 mg, Oral, EVERY 4 HOURS PRN, mild pa in, headaches, Starting on Thu03/13/21 at 1341, May give first dose 4 hours after last scheduled dose of acetaminophen. Maximum acetaminophen dose from all sources = 75 mg/kg /day not to exceed 4 grams/day. atropine injection 0.5 mg 0.5 mg, Intravenous, ONCE PRN, other, va sovagal response (symptomatic bradycardia) to sheath pull., Starting on Thu03/13/21 at 1316, For 8 hours fentaNYL (PF) (SUBLIMAZE) injection 25 m cg 25 mcg, Intravenous, EVERY 15 MIN PRN, severe pain (7- 10), with Femoral sheath removal, Starting on Thu03/13/21 at 1316, For 2 doses, May repeat x 1 after 15 minutes. For severe pain related to pull ing the FEMORAL sheath out ONLY. Maximum total dose is 50 mcg. For ordered IV dos es 1-100 mcg give IV Push undiluted over a minimum of 3-5 minutes. flumazenil (ROMAZICON) injection 0.2 mg 0.2 mg, Intravenous, EVERY 1 MIN PRN, be nzodiazepine reversal, Administer over 1 Minutes, Starting on Thu03/13/21 at 1316, For 8 hours, May repeat x 3. Notify provider [Notify Interventional Fellow/C ardiologist ([facility]) or Leacher ([facility])] Irritant. For ordered IV doses 0.1-1 mg, give IV Push undiluted. Administer each 0.2mg over 15 seconds. Use with caution in patients on benzodiazepine [...] procedure/surgery: OTHER (for 48 hours post procedure), Surgery or Proced ure Date: 03/13/2021, HOLD, Starting on Thu03/13/21 at 1341, Until Thu03/13/21 at 20 36, Hold metformin (GLUCOPHAGE, GLUMETZA, FORTAMET, RIOMET) and [...] Topical, EVERY 1 HOUR PRN, pain, with VAD insertion, S tarting on Thu03/13/21 at 1341, Apply at least 30 minutes [...] mild pain with VAD insertion, Starting on Thu03/13/21 at 1341, MAX dose 1 mL subcutaneous OR intrader mal along the side of the vein in [...] anxiety, or patient comfort with sheath removal., St arting on Thu03/13/21 at 1316, For 2 doses, May repeat once after 5 minutes if neede d for anxiety or patient comfort with the FEMORAL sheath removal. Max total dose is 1 mg. This d rug may cause significant respiratory depression. Monitor respirat ory status and vital signs carefully for 1 hour after each dose. naloxone (NARCAN) injection 0.2 mg 0.2 mg, Intravenous, EVERY 2 MIN PRN, op ioid reversal, Starting on Thu03/13/21 at 1316, For 8 hours, Administer intravenou s route [...] not improved after 4 nalox one doses. For ordered IV doses 0.1-2mg give IVP. Give each 0.4mg over 15 seconds in emergency situations. For non-emergent situations further dilu te in 9mL of NS to facilitate titration of response. naloxone (NARCAN) injection 0.2 mg 0.2 mg, Intramuscular, EVERY 2 MIN PRN, opioid reversal, Starting on Thu03/13/21 at 1316, For 8 hours, Administer intramuscular if an intr avenous route is not available and notify provider [...] have not improved after 4 naloxone doses. For ord ered IV doses 0.1-2mg give IVP. Give each 0.4mg over 15 seconds in emergency situa tions. For non-emergent situations further dilute in 9mL of NS to facilitate titration of respons e. naloxone (NARCAN) injection 0.4 mg 0.4 mg, Intravenous, EVERY 2 MIN PRN, op ioid reversal, Starting on Thu03/13/21 at 1316, For 8 hours, Administer intravenou s route [...] transfer to ICU if patient respiratory parameters edmonds ve not improved after 4 naloxone doses. For ordered IV doses 0.1-2mg give IVP. Give each 0.4mg ove r 15 seconds in emergency situations. For non-emergent situations further dilute in 9mL of NS to facilitate titration of response. naloxone (NARCAN) injection 0.4 mg 0.4 mg, Intramuscular, EVERY 2 MIN PRN, opioid reversal, Starting on Thu03/13/21 at 1316, For 8 hours, Administer intramuscular if an intr avenous route is not available and notify provider [...] have not improved after 4 naloxone doses. For ord ered IV doses 0.1-2mg give IVP. Give each 0.4mg over 15 seconds in emergency situa tions. For non-emergent situations further dilute in 9mL of NS to facilitate titration of respons e. oxyCODONE (ROXICODONE) tablet 10 mg 10 mg, Oral, EVERY 4 HOURS PRN, other, f or pain control. Hold dose for analgesic side effects., Starting on Thu03/13/21 at 1341, Start w ith the lowest dose. May adjust dose by 5 mg every 4 hours as needed. Notify pr ovider to assess for uncontrolled pain or analgesic side effe cts. Hold while on a GAS FITTER APPRENTICE or with regular IV opioid dosing. Maximum total is 60 mg in 24 hours. oxyCODONE (ROXICODONE) tablet 5 mg 5 mg, Oral, EVERY 4 HOURS PRN, other, for pain control . Hold dose for analgesic side effects., Starting on Thu03/13/21 at 1341, Start w ith the lowest dose. May adjust dose by 5 mg every 4 hours as needed. Notify pr ovider to assess for uncontrolled pain or analgesic side effe cts. Hold while on a GAS FITTER APPRENTICE or with regular IV opioid dosing. Maximum total is 60 mg in 24 hours. sodium chloride (PF) 0.9% PF flush 3 mL 3 mL, Intracatheter, EVERY 8 HOURS, First dose on Thu03/13/21 at 1400, to lock peripheral IV dormant line sodium chloride (PF) 0.9% PF flush 3 mL 3 mL, Intracatheter, EVERY 1 MIN PRN, li ne flush, other, to ensure patency or to lock dormant line, Starting on Thu03/13/21 at 1341 sodium chloride 0.9% infusion New Bag 03/13/2021 10:54 AM CDT 150 mL/hr at 150 mL/hr, Intravenous, CONTINUOUS, 150 mL/hr IV for 2 hours prior to cardiac clinical laboratory technician procedure, then decrease to 75 mL/hr to run throughout the procedure. Start at 0700 for inpatients. IF PATIENT IS RECEIVING RENAL DIALYSIS, RN to reduce rate of 0.9 % sodium chloride IV solution to 10 mL /hour (TKO) IV infusion to prevent fluid overload., Cardiac Pre-procedure, Starting on Thu03/13/21 at 1100, Until Thu03/13/21 at 1325 sodium chloride 0.9% infusion New Bag 03/13/2021 2:03 PM CDT 75 mL/hr at 75 mL/hr, Intravenous, CONTINUOUS, [...] (TKO) to prevent fluid overload, Starting on Thu03/13/21 at 1400, Until Thu03/13/21 at 2036 documented in this encounter Active and Recently Administered Medications Times are shown in CDT. Scheduled Medication Order 03/11/2021 03/12/2021 03/13/2021 sodium chloride (PF) 0.9% PF flush 3 mL 1352 (Not Given - Provider: Lea Coughlin RN - Reason: IV Infusing) 3 mL, Intracatheter, EVERY 8 HOURS, Firs t dose on Thu03/13/21 at 1400, to lock peripheral IV dormant line Continuous Medication Order 03/11/2021 03/12/2021 03/13/2021 sodium chloride 0.9% infusion (CANCELED) 1054 (New Bag - Provider: Lu Connolly RN) at 150 mL/hr, Intravenous, CONTINUOUS, 1 50 mL/hr IV for 2 hours prior to cardiac clinical laboratory technician procedure, then decrease to 75 mL/hr to run throughout the procedure. Start at 0700 for inpatients. IF PATIENT I S RECEIVING RENAL DIALYSIS, RN to reduce rate of 0.9 % sodium chloride IV solution to 10 mL /hour (TKO) IV infusion to prevent fluid overload., Cardiac Pre-procedure, Starting on Thu03/13/21 at 1100, Until Thu03/13/21 at 1325 sodium chloride 0.9% infusion 14 03 (New Bag - Provider: Lea Coughlin RN) at 75 mL/hr, Intravenous, CONTINUOUS, Ad instructional technology instructor over 4 Hours, or until patient is [...] to preven t fluid overload, Starting on Thu03/13/21 at 1400, Until Thu at 2036 PRN Medication Order 03/11/2021 03/12/2021 03/13/2021 0.9% sodium chloride BOLUS Intravenous, 250 mL, ONCE PRN, other, fo r symptomatic hypotension with femoral sheath removal, Starting on Thu03/13/21 at 1316, For 8 hours, Notify provider if patient is not responsive to the initial bolus of Sodium Chloride 0.9%. acetaminophen (TYLENOL) tablet 650 mg 650 mg, Oral, EVERY 4 HOURS PRN, mild pa in, headaches, Starting on Thu03/13/21 at 1341, May give first dose 4 hours after last scheduled dose of acetaminophen. Maximum acetaminophen dose from all sources = 75 mg/kg/day not to exceed 4 grams/day. atropine injection 0.5 mg 0.5 mg, Intravenous, ONCE PRN, other, va sovagal response (symptomatic bradycardia) to sheath pull., Starting on Thu03/13/21 at 1316, For 8 hours fentaNYL (PF) (SUBLIMAZE) injection 25 mcg 25 mcg, Intravenous, EVERY 15 MIN PRN, s evere pain, with Femoral sheath removal, Starting on Thu03/13/21 at 1316, For 2 doses, May repeat x 1 after 15 minutes. For severe pain related to pulling the FEMO RAL sheath out ONLY. Maximum total dose is 50 mcg. For ordered IV doses 1-100 mcg give IV Push undiluted over a minimum of 3-5 minutes. fentaNYL (PF) (SUBLIMAZE) injection (CANCELED) 1239 (Given - Provider: Roma Alvarado RN) ONCE PRN, Administer over 3-5 Minutes, S tarting on Thu03/13/21 at 1239, Cardiac Intra-procedure flumazenil (ROMAZICON) injection 0.2 mg 0.2 mg, Intravenous, EVERY 1 MIN PRN, be nzodiazepine reversal, Administer over 1 Minutes, Starting on Thu03/13/21 at 1316, For 8 hours, May repeat x 3. Notify provider [Notify Interventional Fellow/Cardi ologist ([facility]) or Leacher (,)] Irritant. For ordered IV doses 0.1-1 mg, give IV Push undiluted. Administer each 0.2mg over 15 seconds. Use with caution in patients on benzodiazepine therapy. heparin (porcine) injection (CANCELED) 1240 (Given - Provider: Roma Alvarado RN) ONCE PRN, Starting on Thu03/13/21 at 1240, Cardiac Intra-procedur e Hold: metformin and metformin containing medications on [...] hours post procedure), Surgery or Procedure Date: 03/13/2021, HOLD, Starting on Thu03/13/21 at 1341, Until Thu03/13/21 at 2035, Hold metformin (GLUCOPHAGE, GLUMETZA, FORTAMET, RIOMET) and m etformin containing medications: aloglip tin/metformin (KAZANO), glipizide/metformin (METAGLIP), glyburide/metformin (GLUCOVANCE), rosiglitazone/metformin (AVANDAMET), dapagliflozin/metformin (XIGDUO XR) , sitagliptin/metformin (JANUMET, JANUME T XR), linagliptin/metformin (JENTADUETO), repaglinide/metformin (PRANDIMET), saxagliptin/metformin (KOMBIGLYZE XR), canagliflozin/metformin (INVOKAMET), and piog litazone/metformin (ACTOPLUS MET, ACTOPL US MET XR). For patients with acute kidney injury or severe chronic kidney disease (stage IV or stage V; i.e., eGFR less than 30) If patient was on one of these m edications pre-procedure, continue to HO LD for 48 hours post-procedure if patient received IV contrast. iopamidol (ISOVUE-370) solution (CANCELED) 1311 (Given - Provider: Darwin Valero MD) ONCE PRN, Starting on Thu03/13/21 at 1311, Cardiac Intra-procedur e lidocaine (LMX4) cream Topical, EVERY 1 HOUR PRN, pain, with VA D insertion, Starting on Thu03/13/21 at 1341, Apply at least 30 minutes [...] same site. lidocaine 1 % 0.1-1 mL (CANCELED) 1239 (Given - Provider: Darwin Valero MD) 0.1-1 mL, Other, EVERY 1 HOUR PRN, mild pain with VAD insertion, Starting on Thu03/13/21 at 1045, MAX dose 1 mL subcutaneous OR intradermal along the side of the vein in divided doses as needed for VAD i nsertion. Do NOT give if patient has a h istory of allergy to any local anesthetic or any dimitris product. MAX dose 1 mL., Cardiac Pre-procedure lidocaine 1 % 0.1-1 mL 0.1-1 mL, Other, EVERY 1 HOUR PRN, mild pain with VAD insertion, Starting on Thu03/13/21 at 1341, MAX dose 1 mL subcutaneous [...] patient comfort with sheath removal., Starting on Thu03/13/21 at 1316, For 2 doses, May repeat once after 5 minutes if needed for anxiety or patient comfort with the FEMORAL sheath removal. Max total dose is 1 mg. This drug may cause significant respiratory depression. Monitor respiratory status and vital signs carefully for 1 hour after each dose. midazolam (VERSED) injection (CANCELED) 1239 (Given - Provider: Roma Alvarado RN) Administer over 2 Minutes, ONCE PRN, Sta rting on Thu03/13/21 at 1239, Cardiac Intra-procedure naloxone (NARCAN) injection 0.2 mg(Linked Group 1) 0.2 mg, Intravenous, EVERY 2 MIN PRN, op ioid reversal, Starting on Thu03/13/21 at 1316, For 8 hours, Administer intravenous route when available and notify provider when administered. For unintended pati tion or respiratory depression if all of the below criteria are met: ~ respiratory rate LESS than or EQUAL to 8. ~SaO2 less than 92% and or/end-tidal CO2 is greater than 50. ~ the patient is receiving a n opioid, has unintended sedations asses sed as RASS (-3), and is currently not on mechanical ventilation. RASS scale moderate (-3) is movement or eye opening to voice but no eye contact. Patient Monitor ing Once the patient has demonstrated a response to the naloxone, continue to monitor respiratory rate, depth, oxygen saturation and end-tidal CO2 (if available) every 15 minutes x 2, then every 30 seng mauro x 2, then every 1 hour x 1 after eac h naloxone dose. Consider transfer to ICU if patient respiratory parameters have not improved after 4 naloxone doses. For ordered IV doses 0.1-2mg give IVP. Give each 0.4mg over 15 seconds in emergency situations. For non-emergent situations further dilute in 9mL of NS to facilitate titration of response. naloxone (NARCAN) injection 0.2 mg(Linked Group 1) 0.2 mg, Intramuscular, EVERY 2 MIN PRN, opioid reversal, Starting on Thu03/13/21 at 1316, For 8 hours, Administer intramuscular if an intravenous route is not available and notify provider when administe red. For unintended sedation or respirat ory depression if all of the below criteria are met: ~ respiratory rate LESS than or EQUAL to 8. ~SaO2 less than 92% and or/end-tidal CO2 is greater than 50. ~ th e patient is receiving an opioid, has un intended sedations assessed as RASS (- 3), and is currently not on mechanical ventilation. RASS scale moderate (-3) is movement or eye opening to voice but no eye contact. Patient Monitoring Once the pat ient has demonstrated a response to the naloxone, continue to monitor respiratory rate, depth, oxygen saturation and end-tidal CO2 (if available) every 15 minutes x 2, then every 30 minutes x 2, then ev eldon 1 hour x 1 after each naloxone dose. Consider transfer to ICU if patient respiratory parameters have not improved after 4 naloxone doses. For ordered IV doses 0.1-2mg give IVP. Give each 0.4mg over 15 seconds in emergency situations. For non-emergent situations further dilute in 9mL of NS to facilitate titration of response. naloxone (NARCAN) injection 0.4 mg(Linked Group 1) 0.4 mg, Intravenous, EVERY 2 MIN PRN, op ioid reversal, Starting on Thu03/13/21 at 1316, For 8 hours, Administer intravenous route when available and notify provider when administered. For unintended pati tion or respiratory depression if all of the below criteria are met: ~ respiratory rate LESS than or EQUAL to 8. ~ SaO2 less than 92% and or/end-tidal CO2 is greater than 50. ~ the patient is receiving an opioid, has unintended sedation asses sed as RASS (-4) or (-5) and patient is currently not on mechanical ventilation. RASS scale (-4) is deep sedation with no response to voice but movement or eye op ening to physical stimulation. RASS scal e (-5) is unarousable. Patient Monitoring Once the patient has demonstrated a response to the naloxone, continue to monitor respiratory rate, depth, oxygen satura tion and end-tidal CO2 (if available) ev eldon 15 minutes x 2, then every 30 minutes x 2, then every 1 hour x 1 after each naloxone dose. Consider transfer to ICU if patient respiratory parameters have not improved after 4 naloxone doses. For or dered IV doses 0.1-2mg give IVP. Give each 0.4mg over 15 seconds in emergency situations. For non-emergent situations further dilute in 9mL of NS to facilitate titration of response. naloxone (NARCAN) injection 0.4 mg(Linked Group 1) 0.4 mg, Intramuscular, EVERY 2 MIN PRN, opioid reversal, Starting on Thu03/13/21 at 1316, For 8 hours, Administer intramuscular if an intravenous route is not available and notify provider when administe red. For unintended sedation or respirat ory depression if all of the below criteria are met: ~ respiratory rate LESS than or EQUAL to 8. ~ SaO2 less than 92% and or/end-tidal CO2 is greater than 50. ~ t he patient is receiving an opioid, has u nintended sedation assessed as RASS (-4) or (-5) and patient is currently not on mechanical ventilation. RASS scale (-4) is deep sedation with no response to voic e but movement or eye opening to physica l stimulation. RASS scale (-5) is unarousable. Patient Monitoring Once the patient has demonstrated a response to the naloxone, continue to monitor respiratory ra te, depth, oxygen saturation and end-tid al CO2 (if available) every 15 minutes x 2, then every 30 minutes x 2, then every 1 hour x 1 after each naloxone dose. Consider transfer to ICU if patient respira tory parameters have not improved after 4 naloxone doses. For ordered IV doses 0.1-2mg give IVP. Give each 0.4mg over 15 seconds in emergency situations. For non-emergent situations further dilute in 9mL of NS to facilitate titration of response. nitroGLYcerin in D5W injection (CANCELED) 1241 (Given - Provider: Darwin Valero MD) ONCE PRN, Starting on Thu03/13/21 at 1241, Cardiac Intra-procedur e oxyCODONE (ROXICODONE) tablet 10 mg(Linked Group 2) 10 mg, Oral, EVERY 4 HOURS PRN, other, f or pain control. Hold dose for analgesic side effects., Starting on Thu03/13/21 at 1341, Start with the lowest dose. May adjust dose by 5 mg every 4 hours as neede d. Notify provider to assess for uncontr olled pain or analgesic side effects. Hold while on a GAS FITTER APPRENTICE or with regular IV opioid dosing. Maximum total is 60 mg in 24 hours. oxyCODONE (ROXICODONE) tablet 5 mg(Linked Group 2) 5 mg, Oral, EVERY 4 HOURS PRN, other, fo r pain control. Hold dose for analgesic side effects., Starting on Thu03/13/21 at 1341, Start with the lowest dose. May adjust dose by 5 mg every 4 hours as needed . Notify provider to assess for uncontro lled pain or analgesic side effects. Hold while on a GAS FITTER APPRENTICE or with regular IV opioid dosing. Maximum total is 60 mg in 24 hours. sodium chloride (PF) 0.9% PF flush 3 mL 3 mL, Intracatheter, EVERY 1 MIN PRN, li ne flush, other, to ensure patency or to lock dormant line, Starting on Thu03/13/21 at 1341 verapamil (ISOPTIN) injection (CANCELED) 1240 (Given - Provider: Darwin Valero MD) ONCE PRN, Starting on Thu03/13/21 at 1240, Cardiac Intra-procedur e Linked Groups Order Group 1: naloxone (NARCAN) injection 0.2 mgJump to med 0.2 mg, Intravenous, EVERY 2 MIN PRN, op ioid reversal, Starting on Thu03/13/21 at 1316, For 8 hours
Administer intravenous route when available and notify provider when administered. Fo r unintended sedation or respiratory dep ression if all of the below criteria are met: ~ respiratory rate LESS than or EQUAL to 8. ~SaO2 less than 92% and or/end-tidal CO2 is greater t park 50. ~ the patient is receiving an opioid, has unintended sedations assessed as RASS (-3), and is currently not on mechanical ventilation. RASS scale moderate (-3) is move ment or eye opening to voice but no eye contact. Patient Monitoring Once the patient has demonstrated a response to the naloxone, continue to monitor respiratory rate, depth, oxygen saturation and end-tidal CO2 (if available) every 15 minutes x 2, then every 30 minutes x 2, then every 1 hour x 1 after each naloxone dose. Consider transfer to ICU if patien t respiratory parameters have not improv ed after 4 naloxone doses. For ordered IV doses 0.1-2mg give IVP. Give each 0.4mg over 15 seconds in emergency situations. For non-emergent situations fu rther dilute in 9mL of NS to facilitate titration of response.
Or naloxone (NARCAN) injection 0.4 mgJump to med 0.4 mg, Intravenous, EVERY 2 MIN PRN, op ioid reversal, Starting on Thu03/13/21 at 1316, For 8 hours
Administer intravenous route when available and notify provider when administered. Fo r unintended sedation or respiratory dep ression if all of the below criteria are met: ~ respiratory rate LESS than or EQUAL to 8. ~ SaO2 less than 92% and or/end-tidal CO2 is greater t park 50. ~ the patient is receiving an [...] every 15 minutes x 2, then every 3 0 minutes x 2, then every 1 hour x 1 aft er each naloxone dose. Consider transfer to ICU if patient respiratory parameters have not improved after 4 naloxone doses. For ordere d IV doses 0.1-2mg give IVP. Give each 0 .4mg over 15 seconds in emergency situations. For non-emergent situations further dilute in 9mL of NS to facilitate titration of response.
Or naloxone (NARCAN) injection 0.2 mgJump to med 0.2 mg, Intramuscular, EVERY 2 MIN PRN, opioid reversal, Starting on Thu03/13/21 at 1316, For 8 hours
Administer intramuscular if an intravenous route is not available and notify provider when a dministered. For unintended sedatio n or respiratory depression if all of the below criteria are met: ~ respiratory rate LESS than or EQUAL to 8. ~SaO2 less than 92% and or/en d-tidal CO2 is greater than 50. ~ t he patient is receiving an opioid, has unintended sedations assessed as RASS (-3), and is currently not on mechanical ventilation. RASS sca le moderate (-3) is movement or eye open ing to voice but no eye contact. Patient Monitoring Once the patient has demonstrated a response to the naloxone, continue to monitor respiratory rate, depth, oxygen saturati on and end-tidal CO2 (if available) every 15 minutes x 2, then every 30 minutes x 2, then every 1 hour x 1 after each naloxone dose. Consider t ransfer to ICU if patient respiratory pa rameters have not improved after 4 naloxone doses. For ordered IV doses 0.1-2mg give IVP. Give each 0.4mg over 15 seconds in emergency situations. For no n-emergent situations further dilute in 9mL of NS to facilitate titration of response.
Or naloxone (NARCAN) injection 0.4 mgJump to med 0.4 mg, Intramuscular, EVERY 2 MIN PRN, opioid reversal, Starting on Thu03/13/21 at 1316, For 8 hours
Administer intramuscular if an intravenous route is not available and notify provider when a dministered. For unintended sedatio n or respiratory depression if all of the below criteria are met: ~ respiratory rate LESS than or EQUAL to 8. ~ SaO2 less than 92% and or/en d-tidal CO2 is greater than 50. ~ t he patient is receiving an opioid, has unintended sedation assessed as RASS (-4) or (-5) and patient is currently not on mechanical ventilation. &amp ;nbsp;RASS scale (-4) is deep sedation w ith no response to voice but movement or eye opening to physical stimulation. RASS scale (-5) is unarousable. &amp ;nbsp;Patient Monitoring Once the p atient has demonstrated a response to the naloxone, continue to monitor respiratory rate, depth, oxygen saturation and end-tidal CO2 (if available) every 15 m inutes x 2, then every 30 minutes x 2, t hen every 1 hour x 1 after each naloxone dose. Consider transfer to ICU if patient respiratory parameters have not improved after 4 naloxone do ses. For ordered IV doses 0.1-2mg g prasanna IVP. Give each 0.4mg over 15 seconds in emergency situations. For non-emergent situations further dilute in 9mL of NS to facilitate titration of response.
Group 2: oxyCODONE (ROXICODONE) tablet 5 mgJump to med 5 mg, Oral, EVERY 4 HOURS PRN, other, fo r pain control. Hold dose for analgesic side effects., Starting on Thu03/13/21 at 1341
Start with the lowest dose. May adjust dose by 5 mg every 4 hours as needed. Notify prov ider to assess for uncontrolled pain or analgesic side effects. Hold while on a GAS FITTER APPRENTICE or with regular IV opioid dosing. Maximum total is 60 mg in 24 hours.
Or oxyCODONE (ROXICODONE) tablet 10 mgJump to med 10 mg, Oral, EVERY 4 HOURS PRN, other, f or pain control. Hold dose for analgesic side effects., Starting on Thu03/13/21 at 1341
Start with the lowest dose. May adjust dose by 5 mg every 4 hours as needed. Notify pro vider to assess for uncontrolled pain or analgesic side effects. Hold while on a GAS FITTER APPRENTICE or with regular IV opioid dosing. Maximum total is 60 mg in 24 hours.
documented in this encounter Care Teams Cut Off Saw Grader Relationship Specialty Start Date End Date Anatoliy Jackson PCP - General 05/14/12 Heath More PCP - Internal Medicine INTERNAL MEDICINE - 01/06/14 MD Andreas ENDOCRINOLOGY, ENDOCRINE CLINIC DIABETES & METABOLISM OF [facility] [address] [facility] [address] [phone] Peter Gipson PCP - Urology 04/02/15 MD Jordan [facility] [address] [facility] [address] [place], [place] [id number] Peter Mcmullen Assigned Musculoskeletal 06/01/20 MD Mahendra Provider [address] [facility] [address] [place], [place] [address] Hallie Maldonado, Assigned Heart and 02/22/2105/18 DOUGHNUT MAKER SENIOR OFFICE SUPPORT ASSISTANT SOSA Vascular Provider [address] [id number] documented as of this encounter
--- OUTSIDE RECORDS SUMMARY | 2022-05-02 12:33 | XMS_ITS | Encounter Summary ---
:1950 Author Organization [place] Address [address] [facility] [place] [address] Care Team Providers Name Role Phone Anatoliy Jackson MD Primary Care Provider Heath More MD Unavailable Peter Gipson MD Unavailable Peter Mcmullen MD Unavailable Hallie Maldonado APRN AUTO BODY REPAIRER Unavailable [phone] Encounter Details Date Type Department Care Team Description 04/03/2021 Care Coordination [facility] Heart RostZahida bueno, Clinic Genia RN [address] [place] [address] Social History Tobacco Use Types [...] encounter Progress Notes Debra Jacob RN - 04/03/2021 9:27 AM CDT Pt called wanting to set up OR date. Informed patient we are scheduling out until - week of April. Pt would prefer 04/22. Message sent to chief crew scheduler and they will call pt to confirm. Ordered all pre-op testing needed and someone will be calling pt to schedule prior to OR date. Pt verbalized understanding and agreeable to plan. documented in this encounter Plan of Treatment Upcoming Encounters Date Type Specialty Care Team Description 05/15/2022 Hospital Encounter Surgery Singh Torres MD [facility] [address] [place] [address] [place] [address] (Wo rk) 05/15/2022 Surgery Surgery Neo Torres MD BLEPHAROPLASTY BILATERAL [facility] PTOSIS REPAIR BILATERAL [address] [place] [place] [address] [place] [address] (Wo rk) 06/25/2022 Ancillary Procedure Cardiology Kirk Silver MD [address] [place] [phone] (Wo rk) Scheduled Procedures Name Priority Associated [...] on filedocumented in this encounter Care Teams Commissioner Of Internal Revenue Relationship Specialty Start Date End Date Anatoliy Jackson, PCP - General 05/14/12 Heath More PCP - Internal Medicine INTERNAL MEDICINE - 01/06/14 MD Andreas ENDOCRINOLOGY, [facility]INE [facility]IC DIABETES & METABOLISM [facility] [address] [facility] [address] [place] [phone] Peter Gipson PCP - Urology 04/02/15 MD Jordan [facility] [address] [place] [address] [address] [place] [address] Peter Mcmullen Assigned Musculoskeletal 06/01/20 MD Mahendra Provider [id number] [place], [place] [address] Hallie Maldonado, Assigned Heart and 02/22/2105/18 PROGRAMMING INTERNSHIP AUTO BODY REPAIRER Vascular Provider [address] [address] documented as of this encounter
--- OUTSIDE RECORDS SUMMARY | 2022-05-02 12:33 | XMS_ITS | Encounter Summary ---
:1950 Author Organization [place] Address [address] [facility] [place] [address] Care Team Providers Name Role Phone Anatoliy Jackson MD Primary Care Provider Heath More MD Unavailable Peter Gipson MD Unavailable Peter Mcmullen MD Unavailable Hallie Maldonado APRN WELDING SPECIALIST Unavailable [phone] Encounter Details Date Type Department Care Team Description 04/04/2021 Orders Only [facility] Kushal Gardner er for Heart Clinic Genia Malik MD screening for other [address] viral diseases [facility] [address] [phone] [place], [place] [phone] Social History Tobacco Use Types Packs/Day Years [...] this encounter Miscellaneous Notes Addendum Note - Blade Garcia LPN - 04/04/2021 1:35 PM CDT Addended by: BLADE GARCIA on: 04/08/2021 01:57 PM Modules accepted: Orders documented in this encounter Plan of Treatment Upcoming Encounters Date Type Specialty Care Team Description 05/15/2022 Hospital Encounter Surgery Singh Torres MD [facility] [address] [place] [address] [place] [address] (Wo rk) 05/15/2022 Surgery Surgery Neo Torres MD BLEPHAROPLASTY BILATERAL [facility] PTOSIS REPAIR BILATERAL [address] [place] [address] [place] [address] (Wo rk) 06/25/2022 Ancillary Procedure Cardiology Kirk Silver MD [address] [place] [address] (Wo rk) Scheduled Procedures Name Priority Associated [...] 9:06 AM CDT) [facility] Signature SARS CoV2 PCR Negative Negative 04/18/2021 [facility] 3:40 PM CDT LABORATORY Comment: NEGATIVE: SARS-CoV-2 (COVID-19) RNA not detected, presumed negative. Specimen Anatomical Collection Method Collection Time Receive d Time (Source) Location / / Volume Laterality Swab NASAL STRUCTURE / Non-blood 04/17/2021 9:06 AM 03/2021 9:07 Unknown Collection / CDT AM CDT Unknown Narrative [facility] - 04/18/2021 3:40 PM C DT Testing was performed using the Aptima SARS-CoV-2 Assay on the [employer]lik[employer] Instrument System. Additional in formation about this [...] COVID-19. This test was validated by the [facility]. This lab oratory is certified under the Clinical Laboratory Improvement Amen dments of 1987 (CLIA-88) as qualified to perform high complexity lab oratory testing. Kushal Gardner MD LAB - MICRO GENERAL ORDERABL ES Performing Organization Address City/State/ZIP Code Phon e Number [facility] [place] [address] Diag. 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 [address] [place], [place] [phone] Peter Mcmullen Assigned Musculoskeletal 06/01/20 MD Mahendra Provider [address] [facility] [address] [place], [place] [address] Hallie Maldonado, Assigned Heart and 02/22/2105/18 FRICTION PAINT MACHINE TENDER WELDING SPECIALIST Vascular Provider [address] [address] documented as of this encounter
--- OUTSIDE RECORDS SUMMARY | 2022-05-02 12:33 | XMS_ITS | Encounter Summary ---
:1950 Author Organization [place] Address [address] [facility] [address] Care Team Providers Name Role Phone Anatoliy Jackson MD Primary Care Provider Heath More MD Unavailable Peter Gipson MD Unavailable Peter Mcmullen MD Unavailable Hallie Maldonado APRN ELECTRICIAN MASTER Unavailable [phone] Encounter Details Date Type Department Care Team Description 04/04/2021 Care Coordination [facility] Heart RostanceZahida, Clinic Anu RN [address] [place] [address] Social History Tobacco Use Types Packs/Day [...] [address] [place] [place] [phone] (Wo rk) 05/15/2022 Surgery Surgery Neo Torres MD BLEPHAROPLASTY BILATERAL [facility] PTOSIS REPAIR BILATERAL [address] [place] [address] [place] [phone] (Wo rk) 06/25/2022 Ancillary Procedure Cardiology Kirk Silver MD [address] [place] [phone] (Wo rk) Scheduled Procedures Name Priority Associated [...] on filedocumented in this encounter Care Teams Correctional Agency Director Relationship Specialty Start Date End Date Anatoliy Jackson, PCP - General 05/14/12 Heath More PCP - Internal Medicine INTERNAL MEDICINE - 01/06/14 MD Andreas ENDOCRINOLOGY, ENDOCRINE CLINIC DIABETES & METABOLISM [facility] [address] [place] [address] [phone] Peter Gipson PCP - Urology 04/02/15 MD Jordan [facility] [address] [place] [address] Peter Mcmullen Assigned Musculoskeletal 06/01/20 MD Mahendra Provider [address] [place] [address] Hallie Maldonado, Assigned Heart and 02/22/2105/18 HEAVY TRUCK TECHNICIAN ELECTRICIAN MASTER Vascular Provider [address] [address] documented as of this encounter
--- OUTSIDE RECORDS SUMMARY | 2022-05-02 12:33 | XMS_ITS | Encounter Summary ---
:1950 Author Organization [place] Address [address] [place] [address] Care Team Providers Name Role Phone Anatoliy Jackson MD Primary Care Provider Heath More MD Unavailable Peter Gipson MD Unavailable Peter Mcmullen MD Unavailable Hallie Maldonado APRN FUEL OIL TRUCK DRIVER Unavailable Encounter Details Date Type Department Care Team Description 03/18/2021 Travel Social History Tobacco Use Types Packs/Day [...] been in contact with No / Unsure 03/18/2021 10:32 AM CDT someone who was confirmed or 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 documented as of this encounter Plan of Treatment Upcoming Encounters Date Type Specialty Care Team Description 05/15/2022 Hospital Encounter Surgery Singh Torres MD [facility] [address] [place] [address] [address] (Wo rk) 05/15/2022 Surgery Surgery Neo Torres MD BLEPHAROPLASTY BILATERAL [facility], INTERNAL & [facility] PTOSIS REPAIR BILATERAL [address] [place] [address] [place] [address] (Wo rk) 06/25/2022 Ancillary Procedure Cardiology Kirk Silver MD [address] [place] [address] (Wo rk) Scheduled Procedures Name Priority Associated [...] on filedocumented in this encounter Care Teams M1 Armor Crewman Relationship Specialty Start Date End Date Anatoliy Jackson, PCP - General 05/14/12 Heath More PCP - Internal Medicine INTERNAL MEDICINE - 01/06/14 MD Andreas ENDOCRINOLOGY, ENDOCRINE CLINIC DIABETES & METABOLISM [facility] [address] [place] [address] [place] [phone] Peter Gipson PCP - Urology 04/02/15 MD Jordan [facility] [address] [place] [address] [address] [place], [place] [phone] Peter Mcmullen Assigned Musculoskeletal 06/01/20 MD Mahendra Provider [facility] [address] [address] Hallie Maldonado, Assigned Heart and 02/22/2105/18 BUTTON DECORATING MACHINE OPERATOR FUEL OIL TRUCK DRIVER Vascular Provider [address] [id number] documented as of this encounter
--- OUTSIDE RECORDS SUMMARY | 2022-05-02 12:33 | XMS_ITS | Encounter Summary ---
:1950 Author Organization [place] Address [address] [facility] 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 Procedures HC CATH PLACE/CORONARY ANGIO, IMG SUPER/INTERP Coronary Angiogram [address] [place], [place] [address] Phone: Fax: Referral ID Status Reason Start Date Expiration Date Visits Requ ested Visits Authorized [id number] 1 1 Encounter Details Date Type Department Care Team Description 03/13/2021 [facility] [address] [place] [address] [address] [place] [id number] (Wo rk) Surgery Details Date/Time Status Location OR Service Patient Class Case Case Trauma Class Type Case? 03/13/21 12:00 Posted [facility] Cath Cardiology Outpatient PM CARDIAC Lab 12 CERAMIC CHEMIST Panel 1 Procedure LRB Anes Op Region Wound Class Commen ts Coronary Angiogram N/A Conscious Sedation Heart Instantaneous Wave-Free Ratio N/A Conscious Sedation Surgeon Surgeon Role Service Panel Darwin Valero MD Primary Cardiology 1 documented in this [...] Sign Reading Time Taken Comments Blood Pressure 159/62 03/13/2021 10:34 AM CDT Pulse 44 03/13/2021 10:34 AM CDT Temperature 36.3 ??C (97.3 ??F) 03/13/2021 10:34 AM CDT Respiratory Rate 20 03/13/2021 12:54 PM CDT Oxygen Saturation 98% 03/13/2021 10:34 AM CDT Inhaled Oxygen Concentration - - [...] artery disease (If pain is not involving cahto relieved 5 minutes coronary artery of after 1st dose call cahto heart without 911) angina pectoris rosuvastatin (CRESTOR) [...] Activity restriction education reviewed with patient: Yes. Aurelia wrist band applied, arm board applied at bedside. 5. Stable vital signs: Yes 6. ADLs back to baseline: No 7. Activity and level of assistance: has not been OOB. 8. Interpretation of rhythm per filling technician: Normal sinus and Sinus bradycardia Sheet Tester Nurse Safe discharge environment identified: Yes Barriers [...] up with surgery vs complex procedure at [facility] B: Why procedure needed: GRADY- previous procedures A: Assessment of area: Right rad artery access- sheath out at 1310 TR Band on 10ml R: Recommendations: follow up with Cards Family updated: per MD documented in this encounter Procedure Notes Darwin Valero MD - 03/13/2021 1:22 PM CDTAssociated Order(s): *Cath without PCI Post-Procedure Diagnose(s): Abnormal stress test; Coronary artery disease involving cahto coronary artery of cahto heart without angina pectoris; Dyspnea on exertion [facility] Procedure: *Cath without PCI Date/Time: 03/13/2021 1:18 [...] the procedure a time out was called Merna Protocol: the Joint Commission Merna Protocol was followed Preparation: Patient was prepped [...] mid vessel 75% lesion IFR 0.75 CX BRAND ADVISOR M2 ( previously stented) other sites widely [...] Miscellaneous Notes Plan of Care - Martinez Leach, RN - 03/13/2021 6:34 PM CDT Patient's [...] Activity restriction education reviewed with patient: Yes. Aurelia wrist band applied, arm board applied Stable vital signs: Yes, Elevated BP but stable ADLs back to baseline: Yes Activity and level of assistance: Ambulating independently. Interpretation of rhythm per filling technician: Sinus bradycardia Sheet Tester Nurse Safe discharge environment identified: Yes Barriers [...] discharge. Pharmacy-Admission Medication History - Rabia Pabon [facility] - 03/13/2021 3:17 PM CDT Admission medication history interview status for this patient is complete. See [facility] admission navigator for allergy information, prior to admission medications and immunization status. 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: Added: cont glucose monitor Changed: [...] to the patient the risks of , [place], stroke, hematoma, possible urgent bypass surgery for [...] 05/15/2022 Hospital Encounter Surgery Singh Torres MD [facility] [address] [place] [address] (Wo rk) 05/15/2022 Surgery Surgery Neo Torres MD BLEPHAROPLASTY BILATERAL [facility] PTOSIS REPAIR BILATERAL [address] [place] [address] (Wo rk) 06/25/2022 Ancillary Procedure Cardiology Kirk Silver MD [address] [place] [id number] (Wo rk) Scheduled Procedures Name Priority Associated [...] i n the results section. CASE REQUEST CERAMIC CHEMIST Routine 03/13/2021 1:18 PM Abnormal stre ss Results for this CDT test procedure are in Coronary artery the results disease involving section. cahto coronary artery of cahto heart without angina pectoris Dyspnea on exertion CV CARDIAC Routine 03/13/2021 1:15 PM Coronary artery Result s for this CATHERIZATION CDT disease involving procedure are in cahto coronary the results artery of cahto section. heart without angina pectoris Abnormal stress test CV CARDIAC Routine 03/13/2021 1:15 PM Coronary artery Result s for this CATHERIZATION CDT disease involving procedure are in cahto coronary the results artery of cahto section. heart without angina pectoris Abnormal stress [...] PM 03/13 4:46 Unknown CDT PM CDT Cloth Boil Off Machine Operator Invasive MD KATERINA DOE POCT Performing Organization Address City/State/ZIP Code Phon e Number [place] [address] Care Lab [address] Lab (1st floor, no room number) *Cath without PCI (03/13/2021 1:18 PM CDT) Narrative Darwin Valero MD - 03/13/2021 1: 18 PM CDT Darwin Valero MD ? 03/13/2021 ??1:22 PM [facility] Procedure: *Cath without PCI Date/Time: 03/13/2021 1:18 [...] dure a time out was called ?? Merna Protocol: the Joint Commission Merna Protocol was followed ?? Preparation: Patient was [...] mid vessel 75% lesion IFR 0.75 CX BRAND ADVISOR M2 ( previously stented) other si mauro [...] mid and distal CX widely patent. New BRAND ADVISOR M2 ( previously stented) 4. RCA heavily [...] possible revascularization was advised by his referring top lifter. Cath Procedure details 1. Coronary angiogram The right radial region was prepped and draped in standard fashion and infiltrated with 1% lidocaine. The right radial artery was entered percutaneously with a micropuncture kit and with Seldinger techn ique a 6 [employer] slender sheath wa s placed in the [...] an EBU guide. We prepare d a [employer] Omni wire coronary pressure wire system. We [...] final view with coronary angiography to anali tapia certain there was no change in left [...] supervised all critical aspects the procedure. Hallie Maldonado APRN, CNP CV CARDIAC CATH ORDERABLES EKG 12-lead, tracing only (03/13/2021 11:02 AM CDT) Component Value Ref Range Test Analysis Performed Pathologis t Method Time At Signature Systolic Blood mmHg RADIOLOGY Pressure RESULTS Diastolic Blood mmHg RADIOLOGY Pressure RESULTS Ventricular Rate 44 BPM RADIOLOGY RESULTS Atrial Rate 44 BPM RADIOLOGY RESULTS VT Interval 176 ms RADIOLOGY RESULTS QRS Duration 106 ms RADIOLOGY RESULTS QT 468 ms RADIOLOGY RESULTS QTc 400 ms RADIOLOGY RESULTS P [place] 63 degrees RADIOLOGY RESULTS R AXIS 10 degrees RADIOLOGY RESULTS T [place] 75 degrees RADIOLOGY RESULTS Interpretation Sinus bradycardia RADIOLO GY ECG Abnormal ECG RESULTS Confirmed by MD LINDA, SUNI HIRSCH ([id number]), editor at large RHODA GARCIA ([id number]) on 03/13/2021 1:18:46 PM [...] Organization Address City/State/[place] [address] Care Lab [address] Lab (1st floor, no room number) [...] LAB - BLOOD ORDERABLES Performing Organization Address [facility]/ZIP [facility] [place] [address] Care Lab [address] Lab (1st floor, no room number) [...] LAB - BLOOD ORDERABLES Performing Organization Address [facility] [place] [address] Care Lab [address] Lab (1st floor, no room number) [...] Address City/State/ZIP Code [place] [phone] Care Lab [address] Lab (1st floor, no room number) (ABNORMAL) Basic metabolic panel (03/13/2021 10:47 AM CDT) [facility] Method Time Signature Sodium 136 133 - 144 03/13/2021 LABORATORY mmol/L 11:15 AM CDT Potassium 4.9 3.4 - 5.3 03/13/2021 LABORATORY mmol/L 11:15 AM CDT Chloride 107 94 - 109 03/13/2021 LABORATORY mmol/L 11:15 AM CDT Carbon Dioxide 26 20 - 32 03/13/2021 LABORATORY (CO2) mmol/L 11:15 AM CDT Anion Gap 3 3 - 14 03/13/2021 LABORATORY mmol/L 11:15 AM CDT Urea Nitrogen 40 (H) 7 - 30 03/13/2021 [facility] LABORATORY mg/dL 11:15 AM CDT Creatinine 1.44 (H) 0.66 - 03/13/2021 [facility] LABORATORY 1.25 mg/dL 11:15 AM CDT Calcium 8.6 8.5 - 10.1 03/13/2021 [facility] LABORATORY mg/dL 11:15 AM CDT Glucose 295 [...] Address City/State/ZIP Code [place] [phone] Care Lab [address] Lab (1st floor, no room number) documented in this encounter Visit Diagnoses Diagnosis Abnormal stress test Other nonspecific abnormal cardiovascula r system function study Coronary artery disease involving cahto coronary artery of cahto heart without angina pectoris Dyspnea on exertion Other dyspnea and respiratory abnormalit y Coronary artery chronic total occlusion Coronary atherosclerosis of unspecified type of vessel, cahto or graft Atherosclerosis of cahto coronary arter y of cahto heart, angina presence unspecified Coronary artery disease involving cahto coronary artery of cahto heart without angina pectoris Abnormal stress test Other nonspecific abnormal cardiovascula r system function study 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 fentaNYL (PF) (SUBLIMAZE) injection Given 03/13/2021 12:39 PM CDT 50 mcg ONCE PRN, Administer over 3-5 Minutes, Starting on Thu03/13/21 at 1239, Cardiac Intra-procedure flumazenil (ROMAZICON) injection 0.2 mg 0.2 mg, Intravenous, EVERY 1 MIN PRN, be nzodiazepine reversal, Administer over 1 Minutes, Starting on Thu03/13/21 at 1316, For 8 hours, May repeat x 3. Notify provider [Notify Interventional Fellow/C ardiologist ([facility]) or Cloth Boil Off Machine Operator (,RH)] Irritant. For ordered IV doses 0.1-1 mg, give IV Push undiluted. Administer each 0.2mg over 15 seconds. Use with caution in patients on benzodiazepine therapy. heparin (porcine) injection Given 03/13/2021 12:40 PM CDT 5,000 Units ONCE PRN, Starting on Thu03/13/21 at 1240, Cardiac Intra-procedure Hold: metformin and metformin containing medications on [...] received IV contrast. iopamidol (ISOVUE-370) solution Given 03/13/2021 1:11 PM CDT 105 mLs ONCE PRN, Starting on Thu03/13/21 at 1311, Cardiac Intra-procedure lidocaine (LMX4) cream Topical, EVERY [...] same site. lidocaine 1 % 0.1-1 mL Given 03/13/2021 12:39 PM CDT 1 mL Righ t Wrist 0.1-1 mL, Other, EVERY 1 HOUR PRN, [...] after each dose. midazolam (VERSED) injection Given 03/13/2021 12:39 PM CDT 1 mg Administer over 2 Minutes, ONCE PRN, Starting on Thu03/13/21 at 1239, Cardiac Intra-procedure naloxone (NARCAN) injection 0.2 mg 0.2 mg, [...] NS to facilitate titration of respons e. nitroGLYcerin in D5W injection Given 03/13/2021 12:41 PM CDT 400 mcg ONCE PRN, Starting on Thu03/13/21 at 1241, Cardiac Intra-procedure oxyCODONE (ROXICODONE) tablet 10 mg [...] side effe cts. Hold while on a REGIONAL SAFETY MANAGER or with regular IV opioid dosing. Maximum [...] side effe cts. Hold while on a REGIONAL SAFETY MANAGER or with regular IV opioid dosing. Maximum [...] IV for 2 hours prior to cardiac cardiac cath lab manager procedure, then decrease to 75 mL/hr to [...] on Thu03/13/21 at 1400, Until Thu03/13/21 at 203 verapamil (ISOPTIN) injection Given 03/13/2021 12:40 PM CDT 2.5 mg ONCE PRN, Starting on Thu03/13/21 at 1240, Cardiac Intra-procedure documented in this encounter Active [...] IV for 2 hours prior to cardiac cardiac cath lab manager procedure, then decrease to 75 mL/hr to [...] RN) at 75 mL/hr, Intravenous, CONTINUOUS, Ad e commerce merchant over 4 Hours, or until patient is [...] injection (CANCELED) 1239 (Given - Provider: Roma Alvarado, RN) ONCE PRN, Administer over 3-5 Minutes, S tarting on Thu03/13/21 at 1239, Cardiac Intra-procedure flumazenil (ROMAZICON) injection 0.2 mg 0.2 mg, Intravenous, EVERY 1 MIN PRN, be nzodiazepine reversal, Administer over 1 Minutes, Starting on Thu03/13/21 at 1316, For 8 hours, May repeat x 3. Notify provider [Notify Interventional Fellow/Cardi ologist ([facility]) or Cloth Boil Off Machine Operator (,)] Irritant. For ordered IV doses 0.1-1 [...] analgesic side effects. Hold while on a REGIONAL SAFETY MANAGER or with regular IV opioid dosing. Maximum [...] analgesic side effects. Hold while on a REGIONAL SAFETY MANAGER or with regular IV opioid dosing. Maximum [...] analgesic side effects. Hold while on a REGIONAL SAFETY MANAGER or with regular IV opioid dosing. Maximum [...] analgesic side effects. Hold while on a REGIONAL SAFETY MANAGER or with regular IV opioid dosing. Maximum total is 60 mg in 24 hours.
documented in this encounter Care Teams Scissors Grinder Relationship Specialty Start Date End Date Anatoliy Jackson, PCP - General 05/14/12 Heath More PCP - Internal Medicine INTERNAL MEDICINE - 01/06/14 MD Andreas ENDOCRINOLOGY, [facility] [address] [facility] [address] [place] [phone] Peter Gipson PCP - Urology 04/02/15 MD Jordan [facility] [address] [place] [address] [address] [place], [place] [phone] Peter Mcmullen Assigned Musculoskeletal 06/01/20 MD Mahendra Provider [address] [place], [place] [phone] Hallie Maldonado, Assigned Heart and 02/22/2105/18 TALCER HEAD BUCKER Vascular Provider [address] [id number] documented as of this encounter
--- OUTSIDE RECORDS SUMMARY | 2022-05-02 12:33 | XMS_ITS | Encounter Summary ---
:1950 Author Organization [place] Address [address] [facility] [place] [address] Care Team Providers Name Role Phone Anatoliy Jackson MD Primary Care Provider Heath More MD Unavailable Peter Gipson MD Unavailable Peter Mcmullen MD Unavailable Hallie Maldonado APRN INTERNET APPLICATION DEVELOPER Unavailable [phone] Encounter Details Date Type Department Care Team Description 03/12/2021 Orders Only [facility] Laureen Emerson Ab normal stress test (Primary Dx); [facility] RN Dyspnea on exer tion; [facility] Coronary artery chronic tota l occlusion [address] [facility] [address] [place] [address] Social History Tobacco Use Types [...] [address] [place] [address] (Wo rk) 05/15/2022 Surgery Surgery Neo Torres MD BLEPHAROPLASTY BILATERAL [facility], [facility] & [facility] [place] PTOSIS REPAIR BILATERAL [address] [place] [address] (Wo rk) 06/25/2022 Ancillary Procedure Cardiology Kirk Silver MD [address] [place] [address] (Wo rk) Scheduled Procedures Name Priority Associated Diagnoses Date/Time REPAIR, PTOSIS, BILATERAL, Dermatochalas is 05/15/2022 7:30 AM CDT WITH BILATERAL BLEPHAROPLASTY 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 REPAIR, ECTROPION, EYE, Dermatochalasis 05/15/2022 7:30 AM CDT BILATERAL 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 documented as of this encounter Visit Diagnoses Diagnosis Abnormal stress test - Primary Other nonspecific abnormal cardiovascula r system function study Dyspnea on exertion Other dyspnea and respiratory abnormalit y Coronary artery chronic total occlusion Coronary atherosclerosis of unspecified type of vessel, [place] or graft 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 documented in this encounter Care Teams Family Support Worker Relationship Specialty Start Date End Date Anatoliy Jackson PCP - General 05/14/12 Heath More PCP - Internal Medicine INTERNAL MEDICINE - 01/06/14 MD Andreas ENDOCRINOLOGY, ENDOCRINE CLINIC DIABETES & METABOLISM [facility] [address] [facility] [address] [phone] Peter Gipson PCP - Urology 04/02/15 MD Jordan [facility] [address] [facility] [address] [place] [address] Peter Mcmullen Assigned Musculoskeletal 06/01/20 MD Mahendra Provider [facility] [address] [place], [place] [address] Hallie Maldonado, Assigned Heart and 02/22/2105/18 SIMONIZER INTERNET APPLICATION DEVELOPER Vascular Provider [address] [place] [address] documented as of this encounter
--- OUTSIDE RECORDS SUMMARY | 2022-05-02 12:33 | XMS_ITS | Encounter Summary ---
:1950 Author Organization [place] Address [address] [facility] [address] Care Team Providers Name Role Phone Anatoliy Jackson MD Primary Care Provider Heath More MD Unavailable Peter Gipson MD Unavailable Peter Mcmullen MD Unavailable Hallie Maldonado APRN AIR INTELLIGENCE OFFICER Unavailable [phone] Reason for Referral Diagnostic Imaging CT Scan (Routine) - Closed Specialty Diagnoses / Procedures Referred By Contact Refer red To Contact Radiology. Diagnoses Coronary artery disease involving omaha coronary artery of omaha heart without angina pectoris Pre-operative cardiovascular examination Uc Cardiovasc Surgery Sh Ct Scan Procedures CT Chest w/o Contrast 909 [facility] [address] [place] [phone] Referral ID Status Reason Start Date Expiration Date Visits Requ ested Visits Authorized [id number] Closed 04/02/2021 04/02/2022 1 1 Diagnostic Imaging XR (Routine) - Closed Specialty Diagnoses / Procedures Referred By Contact Refer red To Contact Diagnoses Coronary artery disease involving omaha coronary artery of omaha heart without angina pectoris Pre-operative cardiovascular examination Uc Cardiovasc Surgery Procedures XR Chest [address] [place] [phone] Referral ID Status Reason Start Date Expiration Date Visits Requ ested Visits Authorized [id number] Closed 04/02/2021 04/02/2022 1 1 Diagnostic Imaging Ultrasound (Routine) - Closed Specialty Diagnoses / Procedures Referred By Contact Refer red To Contact Diagnoses Coronary artery disease involving omaha coronary artery of omaha heart without angina pectoris Pre-operative cardiovascular examination Cardiovasc Surgery Procedures US Lower Extremity Venous Mapping Bilateral [address] [place] [phone] Referral ID Status Reason Start Date Expiration Date Visits Requ ested Visits Authorized [id number] Closed 04/02/2021 04/02/2022 1 1 Diagnostic Imaging Ultrasound (Routine) - Closed Specialty Diagnoses / Procedures Referred By Contact Refer red To Contact Diagnoses Coronary artery disease involving omaha coronary artery of omaha heart without angina pectoris Pre-operative cardiovascular examination Other specified symptoms and signs involving the circulatory and respiratory systems Cardiovasc Surgery Procedures US Carotid Bilateral [address] [place] [phone] Referral ID Status Reason Start Date Expiration Date Visits Requ ested Visits Authorized [id number] Closed 04/02/2021 04/02/2022 1 1 Encounter Details Date Type Department Care Team Description 04/02/2021 [facility] Debra Cabrales y artery disease involving omaha coronary artery of omaha heart without angina pectoris (Primary Dx); [facility] Genia Beyer RN Pre-operative cardiovascular examination; [address] [place] [address] Abnormal finding of blood ch emistry, unspecified ; [place], [place] Other chest pain ; [phone] Other specified symptoms and signs involving the circulatory and respiratory systems [phone] Social History Tobacco Use Types Packs/Day Years [...] [address] [place] [address] (Wo rk) 05/15/2022 Surgery Surgery Neo Torres MD BLEPHAROPLASTY BILATERAL [facility], INTERNAL & SURGEONS [place] PTOSIS REPAIR BILATERAL [address] [place] [address] (Wo rk) 06/25/2022 Ancillary Procedure Cardiology Kirk Silver MD [address] [place] [id number] (Wo rk) Scheduled Procedures Name Priority Associated Diagnoses Date/Time REPAIR, PTOSIS, BILATERAL, Dermatochalas is 05/15/2022 7:30 AM CDT WITH BILATERAL BLEPHAROPLASTY 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 REPAIR, ECTROPION, EYE, Dermatochalasis 05/15/2022 7:30 AM CDT BILATERAL 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 documented as of this encounter Results (ABNORMAL) UA with Microscopic reflex to Culture (04/17/2021 11:55 AM CDT) [facility] Method Time Signature Color Urine Light Colorless, 04/17/2021 LABORATORY Yellow Straw, 12:24 PM Light CDT Yellow, Yellow Appearance Urine Clear Clear 04/17/2021 LABORATOR Y 12:24 PM CDT Glucose Urine >=1000 (A) Negative 04/17/2021 LABORATORY mg/dL 12:24 PM CDT Bilirubin Urine Negative Negative 04/17/2021 LABORATORY 12:24 PM CDT Ketones Urine Negative Negative 04/17/2021 LABORATORY mg/dL 12:24 PM CDT Specific Crosby 1.018 1.003 - 04/17/2021 LABORATOR Y Urine [...] Address City/State/ZIP Code [place] [address] Care Lab [address] 1st floor, Room 20B (ABNORMAL) CBC with platelets (04/17/2021 11:53 AM CDT) [facility] Method Time Signature WBC Count 10.5 4.0 [...] Address City/State/ZIP Code Phon e Number [place]ATORY [place] [address] Care Lab [address] 1st floor, Room 20B (ABNORMAL) Comprehensive metabolic panel (04/17/2021 11:53 AM CDT) [facility] Method Time Signature Sodium 136 133 - [...] Unknown AM CDT 11:56 AM CDT Unknown Rochus Kenichi Voeller MD LAB - BLOOD ORDERABLES Performing Organization Address City/State/ZIP Code Phon e Number [place]ATORY [place] [place] [address] Care Lab [address] 1st floor, Room 20B INR (04/17/2021 11:53 AM CDT) athologist Signature INR 1.07 0.85 - 1.15 [...] LAB - BLOOD ORDERABLES Performing Organization Address City/[facility]/ZIP Code Phon e Number [place]ATORY [facility] [place] [address] Care Lab [address] 1[address] floor, Room 20B Partial thromboplastin time (04/17/2021 11:53 AM CDT) athologist Signature aPTT 30 22 - 38 [...] Address City/State/ZIP Code Phon e Number [place]ATORY [place] [place] [address] [phone] Care Lab [address] 1st [...] Address City/State/ZIP Code Phon e Number [place]ATORY [facility] [place] [address] Care Lab [address] 1[address] floor, Room 20B Prealbumin (04/17/2021 11:53 AM CDT) athologist Signature Prealbumin 37 15 - 45 04/17/2021 LABORATORY mg/dL 12:25 PM CDT Specimen Anatomical Collection Method / Collection Time Recei shyla Time (Source) Location / Volume Laterality Blood STRUCTURE OF RIGHT Venipuncture / 04/17/2021 11:53 03/2021 UPPER LIMB / Unknown AM CDT 11:56 AM CDT Unknown Kushal Gardner MD LAB - BLOOD ORDERABLES Performing Organization Address City/State/ZIP Code Phon e Number [place]ATORY [facility] [place] [address] Care Lab [address] 1[address] floor, Room 20B US Lower Extremity Venous Mapping Bilateral (04/16/2021 [...] AM CLINICAL HISTORY/INDICATION: ??Coronary artery disease involving omaha coronary artery of omaha heart without angina pectoris. Pre-operative cardiovascular examination. FINDINGS/ Procedure Note Kiara Lagos DO - 2020 ULTRASOUND BILATERAL LOWER EXTREMITY OVIDIO OUS MAPPING 04/16/2021 11:29 AM CLINICAL HISTORY/INDICATION: Coronary ar alena disease involving omaha coronary artery of omaha heart without angina pectoris. Pre-operative cardiovascular examination. [...] mm to 2.8 mm. KIARA LAGOS DO Kushal Gardner MD IMG US ORDERABLES US Carotid Bilateral (04/16/2021 11:28 AM CDT) [...] internal carotid artery diameter. KIARA LAGOS DO Narrative 04/16/2021 12:49 PM CDT BILATERAL CAROTID ULTRASOUND ??April 16, 2021 11:28 AM HISTORY: Preoperative coronary artery by pass graft. Coronary artery disease involving omaha coronary artery of omaha heart without angina pectoris. Pre-operative cardiovas cular [...] of Decreased Accuracy: None. Procedure Note Kiara Lagos, - 2020 BILATERAL CAROTID ULTRASOUND April 11:28 AM HISTORY: Preoperative coronary artery by pass graft. Coronary artery disease involving omaha coronary artery of omaha heart without angina pectoris. Pre-operative cardiovas cular [...] DO Kushal Gardner MD IMG US ORDERABLES CT Chest w/o Contrast (04/16/2021 10:19 AM [...] cted (Ped 0-18y). Coronary artery disease involving omaha coronary artery of omaha heart without angina pectoris. Pre-operative c ardiovascular [...] cted (Ped 0-18y). Coronary artery disease involving omaha coronary artery of omaha heart without angina pectoris. Pre-operative c ardiovascular [...] MD Kushal Gardner MD IMG CT ORDERABLES XR Chest 2 Views (04/16/2021 10:15 AM [...] Preop CABG. Coronary artery dis ease involving omaha coronary artery of omaha heart without angina pe ctoris. Preoperative cardiovascular examination. COMPARISON: None. Procedure Note Patsy Ortiz MD - 04/16/2021Fo rmatting of this note might be different from the original. CHEST TWO VIEWS 04/16/2021 10:15 AM HISTORY: Preop CABG. Coronary artery dis ease involving omaha coronary artery of omaha heart without angina pe ctoris. Preoperative cardiovascular examination. COMPARISON: None. IMPRESSION: There are no acute infiltrat es. The cardiac silhouette is not enlarged. Pulmonary vasculature is u nremarkable. PATSY ORTIZ MD Kushal Gardner MD IMG DIAGNOSTIC IMAGING ORDER [place] documented in this encounter Visit Diagnoses Diagnosis Coronary artery disease involving omaha coronary artery of omaha heart without angina pectoris - Primary Pre-operative cardiovascular examination Abnormal finding of blood chemistry, uns pecified Other chest pain Other chest pain Other specified symptoms and signs invol ving the circulatory and respiratory systems Coronary artery disease involving omaha coronary artery of omaha heart without angina pectoris Pre-operative cardiovascular examination Coronary artery disease involving omaha coronary artery of omaha heart without angina pectoris Pre-operative cardiovascular examination Other specified symptoms and signs invol ving the circulatory and respiratory systems Coronary artery disease involving omaha coronary artery of omaha heart without angina pectoris Pre-operative cardiovascular examination Coronary artery disease involving omaha coronary artery of omaha heart without angina pectoris Pre-operative cardiovascular examination 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 documented in this encounter Care Teams Environmental Engineering Manager Relationship Specialty Start Date End Date Anatoliy Jackson PCP - General 05/14/12 Heath More PCP - Internal Medicine INTERNAL MEDICINE - 01/06/14 MD Andreas ENDOCRINOLOGY, [facility] DIABETES & METABOLISM [address] [place] [phone] Peter Gipson PCP - Urology 04/02/15 MD Jordan [facility] [address] [facility] [address] [place] [address] Peter Mcmullen Assigned Musculoskeletal 06/01/20 MD Mahendra Provider [address] [place], [place] [address] Hallie Maldonado, Assigned Heart and 02/22/2105/18 APPLICATION DEVELOPER MANAGER AIR INTELLIGENCE OFFICER Vascular Provider [address] [place] [place] [address] documented as of this encounter
--- OUTSIDE RECORDS SUMMARY | 2022-05-02 12:33 | XMS_ITS | Encounter Summary ---
:1950 Author Organization [place] Address [address] [facility] [place] [address] Care Team Providers Name Role Phone Anatoliy Jackson MD Primary Care Provider Heath More MD Unavailable Peter Gipson MD Unavailable Peter Mcmullen MD Unavailable Hallie Maldonado APRN PILE HEADER Unavailable [phone] Encounter Details Date Type Department Care Team Description 04/04/2021 Prep for Procedure [facility] Heart VoellerYina [facility] Genia Malik MD [address] [place] [address] [address] [phone] [place], [place] [phone] (Wo rk) Social History Tobacco Use Types [...] [address] [place] [address] (Wo rk) 05/15/2022 Surgery Surgery Neo Torres MD BLEPHAROPLASTY BILATERAL [facility], INTERNAL & SURGEONS PA PTOSIS REPAIR BILATERAL [address] [place] [id number] (Wo rk) 06/25/2022 Ancillary Procedure Cardiology Kirk Silver MD [address] [place] [phone] (Wo rk) Scheduled Procedures Name Priority Associated [...] on filedocumented in this encounter Care Teams Machine Former Relationship Specialty Start Date End Date Anatoliy Jackson PCP - General 05/14/12 Heath More PCP - Internal Medicine INTERNAL MEDICINE - 01/06/14 MD Andreas ENDOCRINOLOGY, ENDOCRINE CLINIC DIABETES & METABOLISM OF [facility] [address] [place] [phone] Peter Gipson PCP - Urology 04/02/15 MD Jordan [facility] [address] [facility] [address] [place] [address] Peter Mcmullen Assigned Musculoskeletal 06/01/20 MD Mahendra Provider [address] [place], [place] [address] Hallie Maldonado, Assigned Heart and 02/22/2105/18 INSIDE TESTER PILE HEADER Vascular Provider [address] [place] [address] documented as of this encounter
--- OUTSIDE RECORDS SUMMARY | 2022-05-02 12:33 | XMS_ITS | Encounter Summary ---
:1950 Author Organization [place] Address [address] [facility] [place] [address] Care Team Providers Name Role Phone Anatoliy Jackson MD Primary Care Provider Heath More MD Unavailable Peter Gipson MD Unavailable Peter Mcmullen MD Unavailable Hallie Maldonado APRN HUMAN RELATIONS MANAGER Unavailable [phone] Reason for Referral Consultation (Routine) - Closed Specialty Diagnoses / Referred By Contact Referred To Contact Procedures Cardiovascular & Thoracic Diagnoses Coronary artery disease involving little shell tribe coronary artery of little shell tribe heart without angina pectoris Hallie Maldonado [facility] Surgery DINING ROOM BUSSER HUMAN RELATIONS MANAGER CONSUL [address] [facility] [place] [id number] [place] [address] Phone: [phone] Fax: Referral ID Status Reason Start Date Expiration Date Visits Requ ested Visits Authorized [id number] Closed 03/18/2021 03/18/2022 1 1 Reason for Visit Reason Comments Consult : post angiogram Encounter Details Date Type Department Care Team Description 03/18/2021 Office Visit [facility], Coronary arter y disease involving little shell tribe coronary artery of little shell tribe heart without angina pectoris (Primary Dx); [facility] CALLIE Sterling CNP Essential hypertension; [facility] [phone] Hyperlipidemia LDL goal <70; [address] [facility] Chronic renal insufficiency, stage 3 (mo derate); [address] [place] [address] Type 2 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, with long-term current use of insulin (H) [place], [place] [phone] [address] (Work) [phone] Social History Tobacco Use Types Packs/Day Years [...] Sign Reading Time Taken Comments Blood Pressure 110/54 03/18/2021 10:42 AM CDT Pulse 48 03/18/2021 10:42 AM CDT Temperature - - Respiratory Rate - - Oxygen Saturation - - Inhaled Oxygen Concentration - - Weight 101.2 kg (223 lb) 03/18/2021 10:42 AM CDT Height 180.3 cm (5' 11) 03/18/2021 10:42 AM CDT Body Mass Index 31.1 03/18/2021 10:42 AM CDT documented in this encounter Patient Instructions Patient InstructionsChHallie orta APRN CNP - 03/18/2021 10:30 AM CDT Thanks for participating in a office visit with the [facility] today. Reviewed results of angiogram Recommended for evaluation with Dr. Gardner for surgical evaluation and Dr. Vega for possible percutaneous coronary intervention. Continue on current medical therapy. Use SL nitooglycerin as needed for severe chest pain. Please call my nurse at [phone] with any questions or concerns. Scheduling phone number: [phone] Reminder: Please bring in all current medications, over the counter supplements and vitamin bottles to your next appointment. documented in this encounter Progress Notes Hallie Maldonado APRN CNP - 03/18/2021 10:30 AM CDT Cardiology Clinic Progress Note Nikita Anderson Date of : 1950 Age: [age] year old Reason For Visit: Follow up post angiogram Primary Director [facility]: Dr. Solis History of Presenting Illness: Nikita Anderson is a pleasant 70 year old patient who carries a past medical history significant for coronary artery disease status post PCI to the ostial/proximal circumflex, mid circumflex, and OM 2 (2014), hypertension, hyperlipidemia, diabetes, chronic kidney disease, anemia, and obesity. He recently underwent a nuclear stress test [...] PDA. EF is well preserved at 55-60%. Results were reviewed by Dr. Solis who recommends evaluation by CV surgery for evaluation of CABG vs complex PCI. Today, he is feeling well on a cardiac standpoint. He denies chest pain, shortness of breath, palpitations, PND, orthopnea, presyncope or LE edema. Right radial cath site S/F/D without evidence of hematoma or bruit. Blood pressure is well controlled at 110/54, managed on amlodipine, carvedilol ( reduced dose d/t bradycardia), and lisinopril- hydrochlorothiazide. BMP showed a sodium of 136, potassium 4.9, BUN 40, creatinine 1.44 (baseline 1.4), and GFR 49. Hemoglobin 10.7, WBC 7.1, platelet 167 Activity level is unchanged Remains compliant with all medications. Assessment and Plan: 1. Coronary artery disease - status post remote PCI to the ostial/proximal circmflex, mid circumflex, and OM 2 (2014). Recent coronary angiogram showed a 75% mid LAD lesion with positive IFR of 0.77. Circumflex stents are widely patent. New GAUNTLET PAIRER M2. RCA is heavily calcified distally with a 60 to 70% lesion in the PDA. EF is well preserved at 55-60%. Results and images of coronary angiogram were reviewed in detail. With his history of DM and now recurrent multivessel disease, including occlusion of his prior OM2 stent, Dr. Solis recommends he be seen by CT surgery (Dr. Gardner) for evaluation of candidacy for CABG. Patient is agreeable to this. Should CABG not be an option, will set up with Dr. Vegafor evaluation of complex PCI. Continue on current medical therapy. Referral sent to [facility] 2. Anemia -Hgb 10.7, follows with hematology/oncology. 3. Hypertension -well controlled 4. Hyperlipidemia -on statin 5. Diabetes mellitus -managed on insulin 6. Chronic kidney disease - Creatinine 1.4 ( baseline) follows with nephrology. Thank you for allowing me to participate in this delightful patient's care. Hallie Maldonado, DINING ROOM BUSSER HUMAN RELATIONS MANAGER Review of Systems: Review of Systems: Skin: Negative Eyes: Negative ENT: Negative Respiratory: Positive for cough Cardiovascular: fatigue;Positive for Gastroenterology: Positive for diarrhea Genitourinary: not assessed Musculoskeletal: Positive for neck pain;arthritis Neurologic: Positive for numbness or tingling of hands Psychiatric: Positive for sleep disturbances Heme/Lymph/Imm: Negative Endocrine: Positive for diabetes Physical Exam: GEN: In general, this is a overweight male in no acute distress. HEENT: Pupils equal, round. Sclerae nonicteric. Clear oropharynx. Mucous membranes moist. NECK: Supple, no masses appreciated. Trachea midline. No JVD C/V: Regular rate and rhythm, no murmur, rub or gallop. No S3 or RV heave. RESP: Respirations are unlabored. No use of accessory muscles. Clear to auscultation bilaterally without wheezing, rales, or rhonchi. GI: Abdomen soft, nontender, nondistended. No HSM appreciated. EXTREM: No LE edema. No cyanosis or clubbing. NEURO: Alert and oriented, cooperative. No obvious focal deficits. PSYCH: Normal affect. SKIN: Warm and dry. No rashes or petechiae appreciated. Trace right radial ecchymosis. Past Medical History: Past Medical History: Diagnosis [...] Surgeon: Darwin Valero MD; Location: HEART CARDIAC DINKEY PRESS OPERATOR ??? CV INSTANTANEOUS WAVE-FREE RATIO N/A 03/13/2021 Procedure: Instantaneous Wave-Free Ratio; Surgeon: Darwin Valero MD; Location: HEART CARDIAC DINKEY PRESS OPERATOR ??? HC LEFT HEART CATHETERIZATION 04/01/2016 mild LAD (30%), 50-60% rPDA ? ? HEAD & NECK SURGERY wisdom teeth extractions, subacious cyst removed ??? HEART CATH CORONARY ANGIOGRAM W/LV GRAM 01/03/15 70% prox PDA - FFR 0.77, 70% OM2 - FFR 0.79, 70-80% OM3 -FFR 0.77, 70-80% OM4, Allergies: Atorvastatin and Epinephrine Data: All laboratory data reviewed: LAST CHOLESTEROL: Lab Results Component Value Date CHOL 115 12/21/2020 Lab Results Component Value Date HDL 31 12/21/2020 Lab Results Component Value Date LDL 34 12/21/2020 Lab Results Component Value Date TRIG 251 12/21/2020 Lab Results Component Value Date CHOLHDLRATIO 3.5 04/09/2015 LAST BMP: Lab Results Component Value Date NA 142 01/02/2021 Lab Results Component Value Date POTASSIUM 4.8 01/02/2021 Lab Results Component Value Date CHLORIDE 112 01/02/2021 Lab Results Component Value Date RICHIE 8.6 01/02/2021 Lab Results Component Value Date CO2 26 01/02/2021 Lab Results Component Value Date BUN 40 01/02/2021 Lab Results Component Value Date CR 1.56 01/02/2021 Lab Results Component Value Date GLC 115 01/02/2021 LAST CBC: Lab Results Component Value Date WBC 8.8 01/02/2021 Lab Results Component Value Date RBC 3.93 01/02/2021 Lab Results Component Value Date HGB 11.3 01/02/2021 Lab Results Component Value Date HCT 34.5 01/02/2021 Lab Results Component Value Date MCV 88 01/02/2021 Lab Results Component Value Date MCH 28.8 01/02/2021 Lab Results Component Value Date MCHC 32.8 01/02/2021 Lab Results Component Value Date RDW 12.9 01/02/2021 Lab Results Component Value Date PLT 202 01/02/2021 documented in this encounter Plan of Treatment Upcoming Encounters Date Type Specialty Care Team Description 05/15/2022 Hospital Encounter Surgery Singh Torres MD [facility] [address] [place] [id number] (Wo rk) 05/15/2022 Surgery Surgery Neo Torres MD BLEPHAROPLASTY BILATERAL [facility]S, INTERNAL & SURGEONS [facility] PTOSIS REPAIR BILATERAL [address] [place] [id number] (Wo rk) 06/25/2022 Ancillary Procedure Cardiology Kirk Silver MD [address] [place] [address] (Wo rk) Scheduled Procedures Name Priority Associated Diagnoses Date/Time REPAIR, PTOSIS, BILATERAL, Dermatochalas is 05/15/2022 7:30 AM CDT WITH BILATERAL BLEPHAROPLASTY 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 REPAIR, ECTROPION, EYE, Dermatochalasis 05/15/2022 7:30 AM CDT BILATERAL 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 Scheduled Referrals Name Type Priority Associated Diagnoses Order S chedule CARDIOVASCULAR SURGERY Referral Routine Coronary artery Ex pected: REFERRAL disease involving 04/18/2021 little shell tribe coronary artery (Appr oximate), of little shell tribe heart Expires: 04/2023 without angina pectoris documented as of this encounter Visit Diagnoses Diagnosis Coronary artery disease involving little shell tribe coronary artery of little shell tribe heart without angina pectoris - Primary Essential hypertension Unspecified essential hypertension Hyperlipidemia LDL goal <70 Other and unspecified hyperlipidemia Chronic renal insufficiency, stage 3 (mo derate) (H) Type 2 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, with long-term current use of insulin (H) 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 documented in this encounter Care Teams Microsoft Exchange Administrator Relationship Specialty Start Date End Date Anatoliy Jackson PCP - General 05/14/12 Heath More PCP - Internal Medicine INTERNAL MEDICINE - 01/06/14 MD Andreas ENDOCRINOLOGY, ENDOCRINE CLINIC DIABETES & METABOLISM [facility] [address] [place] [phone] Peter Gipson PCP - Urology 04/02/15 MD Jordan [facility] [address] [facility] [address] [place] [address] Peter Mcmullen Assigned Musculoskeletal 06/01/20 MD Mahendra Provider [address] [place], [place] [address] [place] [address] Hallie Maldonado, Assigned Heart and 02/22/2105/18 DINING ROOM BUSSER HUMAN RELATIONS MANAGER Vascular Provider [address] [address] documented as of this encounter
--- OUTSIDE RECORDS SUMMARY | 2022-05-02 12:33 | XMS_ITS | Encounter Summary ---
:1950 Author Organization [place] Address [address] [place] [address] Care Team Providers Name Role Phone Anatoliy Jackson MD Primary Care Provider Heath More MD Unavailable Peter Gipson MD Unavailable Peter Mcmullen MD Unavailable Hallie Maldonado APRN PANTS PRESSER Unavailable [phone] Encounter Details Date Type Department Care Team Description 03/25/2021 Travel Social History Tobacco Use Types Packs/Day [...] 05/15/2022 Hospital Encounter Surgery Singh Torres MD [facility] [address] [place] [address] (Wo rk) 05/15/2022 Surgery Surgery Neo Torres MD BLEPHAROPLASTY BILATERAL [facility] PTOSIS REPAIR BILATERAL [address] [place] [address] [place] [address] (Wo rk) 06/25/2022 Ancillary Procedure Cardiology Kirk Silver MD [address] [place] [id number] (Wo rk) Scheduled Procedures Name Priority Associated [...] on filedocumented in this encounter Care Teams Five Roll Refiner Batch Mixer Relationship Specialty Start Date End Date Anatoliy Jackson, PCP - General 05/14/12 Heath More PCP - Internal Medicine INTERNAL MEDICINE - 01/06/14 MD Andreas ENDOCRINOLOGY, [facility] DIABETES & METABOLISM [facility] [address] [place] [address] [place] [phone] Peter Gipson PCP - Urology 04/02/15 MD Jordan [facility] [address] [place] [address] [address] [place], [place] [id number] Peter Mcmullen Assigned Musculoskeletal 06/01/20 MD Mahendra Provider [facility] [address] [address] Hallie Maldonado, Assigned Heart and 02/22/2105/18 BIT BENDER PANTS PRESSER Vascular Provider [address] [place] [id number] documented as of this encounter
--- OUTSIDE RECORDS SUMMARY | 2022-05-02 12:33 | XMS_ITS | Encounter Summary ---
:1950 Author Organization [place] Address [address] [facility] [place] [address] Care Team Providers Name Role Phone Anatoliy Jackson MD Primary Care Provider Heath More MD Unavailable Peter Gipson MD Unavailable Peter Mcmullen MD Unavailable Hallie Maldonado APRN SENIOR ENGINEERING SPECIALIST Unavailable [phone] Reason for Visit Reason Comments Clinic Care Coordination - Initial Encounter Details Date Type Department Care Team Description 03/25/2021 Office Visit [facility] Kushal Gardner Coronar y artery Heart [facility] Anu Malik MD disease involving [address] [facility] coronary artery [place] [phone] [address] [facility] [facility] heart [phone] [place] [address] without angina [phone] pectoris (Prima ry Dx) (Work) Social History [...] Sign Reading Time Taken Comments Blood Pressure 127/57 03/25/2021 4:03 PM CDT Pulse 48 03/25/2021 4:03 PM CDT Temperature - - Respiratory Rate - - Oxygen Saturation 99% 03/25/2021 4:03 PM CDT Inhaled Oxygen Concentration - - Weight 100.7 kg (222 lb) 03/25/2021 4:03 PM CDT Height 180.3 cm (5' 11) 03/25/2021 4:03 PM CDT Body Mass Index 30.96 03/25/2021 4:03 PM CDT documented in this encounter Progress Notes Mouna Win RN - 03/25/2021 4:00 PM CDT I met patient and his in consultation with Dr. Gardner. Plan CABG early fall. Pre op education done. Will review closer to OR date. Kushal Gardner MD - 03/25/2021 4:00 PM CDT CV Surgery Patient seen, clinic note dictated #[id number]. Kushal Gardner MD documented in this encounter Plan of Treatment Upcoming Encounters Date Type Specialty Care Team Description 05/15/2022 Hospital Encounter Surgery Singh Torres MD [facility] [address] [place] [place] [address] (Wo rk) 05/15/2022 Surgery Surgery Neo Torres MD BLEPHAROPLASTY BILATERAL [facility], INTERNAL & SURGEONS [place] PTOSIS REPAIR BILATERAL [address] [place] [address] [place] [id number] (Wo rk) 06/25/2022 Ancillary Procedure Cardiology Kirk Silver MD [address] [place] [id number] (Wo rk) Scheduled Procedures Name Priority Associated Diagnoses Date/Time REPAIR, PTOSIS, BILATERAL, Dermatochalas is 05/15/2022 7:30 AM CDT WITH BILATERAL BLEPHAROPLASTY 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 [place] coronary artery of [facility] 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 documented in this encounter Care Teams Direct Support Professional Caregiver Relationship Specialty Start Date End Date Anatoliy Jackson, PCP - General 05/14/12 Heath More PCP - Internal Medicine INTERNAL MEDICINE - 01/06/14 MD Andreas ENDOCRINOLOGY, ENDOCRINE CLINIC DIABETES & METABOLISM OF [facility] [address] [place] [phone] Peter Gipson PCP - Urology 04/02/15 MD Jordan [facility] [address] [facility] [address] [place], [place] [phone] Peter Mcmullen Assigned Musculoskeletal 06/01/20 MD Mahendra Provider [address] [facility] [address] [place], [place] [address] Hallie Maldonado, Assigned Heart and 02/22/2105/18 POWER WOOD SAWYER SENIOR ENGINEERING SPECIALIST Vascular Provider [address] [place] [address] documented as of this encounter
--- OUTSIDE RECORDS SUMMARY | 2022-05-02 12:33 | XMS_ITS | Encounter Summary ---
:1950 Author Organization [place] Address [address] [facility] [place] [address] Care Team Providers Name Role Phone Anatoliy Jackson MD Primary Care Provider Heath More MD Unavailable Peter Gipson MD Unavailable Peter Mcmullen MD Unavailable Hallie Maldonado APRN DIRECTOR OF RADIOLOGY Unavailable [phone] Encounter Details Date Type Department Care Team Description 04/03/2021 Prep for Procedure [employer] Kushal Gardner AD (coronary artery Heart Clinic Genia Malik MD disease) (Primary 9 [facility] [address] [place] [address] AVE Dx) [facility] [address] [phone] [place], [place] [address] Social History Tobacco Use Types Packs/Day Years [...] [address] [place] [address] (Wo rk) 05/15/2022 Surgery Surgery Neo Torres MD BLEPHAROPLASTY BILATERAL [place] [facility], INTERNAL & SURGEONS [place] PTOSIS REPAIR BILATERAL [address] [place] [address] (Wo rk) 06/25/2022 Ancillary Procedure Cardiology Kirk Silver MD [address] [place] [address] (Wo rk) Scheduled Procedures Name Priority Associated Diagnoses Date/Time REPAIR, PTOSIS, BILATERAL, Dermatochalas is 05/15/2022 7:30 AM CDT WITH BILATERAL BLEPHAROPLASTY 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 REPAIR, ECTROPION, EYE, Dermatochalasis 05/15/2022 7:30 AM CDT BILATERAL 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 documented as of this encounter Visit Diagnoses Diagnosis CAD (coronary artery disease) - Primary Coronary atherosclerosis of unspecified type of vessel, [place] or graft 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 documented in this encounter Care Teams Parking Garage Manager Relationship Specialty Start Date End Date Anatoliy Jackson PCP - General 05/14/12 Heath More PCP - Internal Medicine INTERNAL MEDICINE - 01/06/14 MD Andreas ENDOCRINOLOGY, ENDOCRINE CLINIC DIABETES & METABOLISM OF [facility] [address] [facility] [address] [place] [phone] Peter Gipson PCP - Urology 04/02/15 MD Jordan [facility] [address] [facility] [address] [place] [address] Peter Mcmullen Assigned Musculoskeletal 06/01/20 MD Mahendra Provider [facility] [address] [facility] [address] [place], [place] [address] Hallie Maldonado, Assigned Heart and 02/22/2105/18 ROTARY KILN OPERATOR DIRECTOR OF RADIOLOGY Vascular Provider [address] [place] [address] documented as of this encounter
--- OUTSIDE RECORDS SUMMARY | 2022-05-02 12:34 | XMS_ITS | Encounter Summary ---
:1950 Author Organization [place] Address [address] [facility] [place] [address] Care Team Providers Name Role Phone Anatoliy Jackson MD Primary Care Provider Heath More MD Unavailable Peter Gipson MD Unavailable Peter Mcmullen MD Unavailable Hallie Maldonado APRN DENTAL PRACTITIONER Unavailable [phone] Encounter Details Date Type Department Care Team Description 02/26/2021 Orders Only [facility] Hallie Maldonado Encou nter for Heart Clinic [place] LEDESMA DENTAL PRACTITIONER screening for other [address] [facility] [address] [facility] viral diseases [facility] [address] [place] [address] [place] [phone] Social History Tobacco Use [...] [address] [place] [address] (Wo rk) 05/15/2022 Surgery Surgery Neo Torres MD BLEPHAROPLASTY BILATERAL [place] [facility] IDS, INTERNAL & SURGEONS PA PTOSIS REPAIR BILATERAL [address] [place], [place] [phone] (Wo rk) 06/25/2022 Ancillary Procedure Cardiology Kirk Silver MD [address] [place] [address] (Wo rk) Scheduled Procedures Name Priority Associated Diagnoses Date/Time REPAIR, PTOSIS, BILATERAL, Dermatochalas is 05/15/2022 7:30 AM CDT WITH BILATERAL BLEPHAROPLASTY 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 REPAIR, ECTROPION, EYE, Dermatochalasis 05/15/2022 7:30 AM CDT BILATERAL 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 documented as of this encounter Visit Diagnoses Diagnosis Encounter for screening for other viral diseases 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 documented in this encounter Care Teams Per Diem Relationship Specialty Start Date End Date Anatoliy Jackson PCP - General 05/14/12 Heath More PCP - Internal Medicine INTERNAL MEDICINE - 01/06/14 MD Andreas ENDOCRINOLOGY, ENDOCRINE CLINIC DIABETES & METABOLISM [facility] [address] [place] [phone] Peter Gipson PCP - Urology 04/02/15 MD Jordan [facility] [address] [facility] [address] [place] [address] Peter Mcmullen Assigned Musculoskeletal 06/01/20 MD Mahendra Provider [facility] S [facility] [address] [place], [place] [address] Hallie Maldonado, Assigned Heart and 02/22/2105/18 ELECTRO WINNING OPERATOR DENTAL PRACTITIONER Vascular Provider [address] [place] [address] documented as of this encounter
--- OUTSIDE RECORDS SUMMARY | 2022-05-02 12:34 | XMS_ITS | Encounter Summary ---
:1950 Author Organization [place] Address [address] [facility] [place] [address] Care Team Providers Name Role Phone Anatoliy Jackson MD Primary Care Provider Heath More MD Unavailable Peter Gipson MD Unavailable Peter Mcmullen MD Unavailable Fidencio Solis MD Unavailable Reason for Visit Diagnostic Imaging NM (Routine) - Closed Specialty Diagnoses / Procedures Referred By Contact Refer red To Contact Cardiology Diagnoses S/P coronary artery stent placement Dyspnea on exertion Fidencio Solis MD Cv Nuclear Medicine Procedures NM Exercise stress test (nuc card) [address], [place] [address] [facility] [address] [place] [address] [place] [phone] Referral ID Status Reason Start Date Expiration Date Visits Requ ested Visits Authorized [id number] Closed 12/14/2020 12/14/2021 1 1 Encounter Details Date Type Department Care Team Description 12/24/2020 Hospital Encounter M [facility] Fidencio Solis MD [facility] [address], [address] [place] [address] [place] [phone] Social History Tobacco Use Types Packs/Day Years [...] been in contact with No / Unsure 12/24/2020 12:56 PM CDT someone who was confirmed or 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 documented as of this encounter Medications at Time of Discharge Medication Sig Dispensed Refills Start Date End Date ONE TOUCH ULTRA TEST as directed 100 [...] 1 tablet 2.5mg to total 7.5mg aspirin 325 MG tablet Take 81 mg by mouth 0 02/18/2021 daily carvedilol (COREG) 6.25 Take 1 tablet (6.25 120 tablet 3 02/202105/01/2021 MG tabletIndications: mg) by mouth 2 times Coronary artery disease daily (with meals) involving [place] coronary artery of [place] heart without angina pectoris cloNIDine (CATAPRES) Take 0.1 mg by mouth 0 04/18/2021 0.1 MG tablet 2 times daily Ferrous Sulfate (IRON Take 50 mg by mouth 0 04/23/2021 PO) daily finasteride (PROSCAR) 5 Take 5 mg by mouth 0 02/18/2021 MG tablet gabapentin (NEURONTIN) TAKE 1 CAPSULE(100 90 capsule 1 11/2202/25/2021 100 MG MG) BY MOUTH THREE capsuleIndications: DDD TIMES DAILY (degenerative disc disease), lumbar gabapentin (NEURONTIN) TK ONE C PO TID 0 12/19/19 20 02/18/2021 300 MG capsule GABAPENTIN PO Take 300 mg by mouth 0 0 02/18/2021 as needed glucosamine-chondroitin Take 1 capsule by 0 04/23/2021 500-400 MG CAPS per mouth daily capsule Insulin Lispro (HUMALOG Inject Subcutaneous 3 0 04/25/2021 SC) times daily (with meals) Sliding scale + carb coverage INSULIN LISPRO (HUMAN) As directed One month 0 01/07/2005 0 02/18/2021 100 UNIT/ML SC SOLNIndications: Type II or unspecified type diabetes mellitus without mention of complication, not stated as uncontrolled LANTUS 100 UNIT/ML SC as directed 100 0 09/18/2004 SOLN lisinopril-hydrochlorot Take 1 tablet by 90 tablet 3 201902/04/2021 hiazide (ZESTORETIC) mouth daily 20-12.5 MG tabletIndications: Hypertension nitroGLYcerin Place 1 tablet (0.4 25 tablet 3 12/14/2020 (NITROSTAT) 0.4 MG mg) under the tongue sublingual every 5 minutes as tabletIndications: needed for chest pain Coronary artery disease (If pain is not involving [place] relieved 5 minutes coronary artery of after 1st dose call [place] heart without 911) angina pectoris rosuvastatin (CRESTOR) Take 1 tablet (40 mg) 90 tablet 3 01/03/2021 40 MG by mouth every tabletIndications: evening Coronary artery disease involving [place] coronary artery of [place] heart without angina pectoris, Hyperlipidemia LDL goal <70, S/P coronary artery stent placement terbinafine (LAMISIL) Take 1 tablet by 0 09/18/19 21 03/13/2021 250 MG tablet mouth daily traMADol (ULTRAM) 50 MG Take 1 tablet (50 mg) 10 tablet 0 0 12/30/2019 03/13/2021 tabletIndications: by mouth nightly as Chronic left shoulder needed for severe pain, Cervical pain radicular pain traZODone (DESYREL) 50 Take 50 mg by mouth 0 04/18/2021 MG tablet At Bedtime documented as of this encounter Plan of Treatment Upcoming Encounters Date Type Specialty Care Team Description 05/15/2022 Hospital Encounter Surgery Singh Torres MD [facility] [address] [place] [address] (Wo rk) 05/15/2022 Surgery Surgery Neo Torres MD BLEPHAROPLASTY BILATERAL [place] [facility] IDS, INTERNAL & SURGEONS PA PTOSIS REPAIR BILATERAL [address] [place] [address] (Wo rk) 06/25/2022 Ancillary Procedure Cardiology Kirk Silver MD [address] [place] [address] (Wo rk) Scheduled Procedures Name Priority Associated [...] Date/Time Associated Diagnosis Comme nts NM MPI TREADMILL Routine 12/24/2020 2:50 PM S/P coronary arter y Results for this CDT stent placement procedure are in Dyspnea on exertion the resu lts section. documented in this encounter Results NM Exercise stress test (nuc card) (12/24/2020 2:50 PM CDT) Analysis Performed At [facility] Time Signature Target HR 149 RADIANT Baseline 148 RADIANT Systolic BP Baseline 60 RADIANT Diastolic BP Last Stress 192 RADIANT Systolic BP Last Stress 58 RADIANT Diastolic BP Baseline HR 56 RADIANT Max HR 146 RADIANT Max Predicted 98 % RADIANT HR Exercise 8 min RADIANT duration (min) Exercise 15 sec RADIANT duration (sec) Estimated 9.9 METS RADIANT workload Rate Pressure 28,032.0 RADIANT Product Angina Index 2 RADIANT Jones Treadmill -[address] Depression 3.0 mm RADIANT (mm) ST Elevation 2.0 mm RADIANT (mm) Anatomical Region Laterality Modality Chest Nuclear Medicine Specimen (Source) Anatomical Location Collection Method / Collectio n Time Received Time / Laterality Volume Narrative 12/24/2020 3:55 PM CDT ?The nuclear stress test is abnormal. ?There is a medium sized area of moderate ischemia in the entire inferior and inferolateral segment(s) of the left ventricle. ?The stress electrocardiogram was abnormal.and 3.[address] segment depression in the II, III, aVF, V4, V5 and V6 leads ?Left ventricular function is mildly reduced, EF 47%. ?A prior study was conducted on 03/24/2016. ??In comparison witht he prior report, these findings are similar. Stress Findings An exercise stress test was performed fo llowing a Vinod protocol with the patient exercising for 8 minutes and 15 seconds under the supervision of Dr. Kelsey Lozano. Heart rate demonstrated a normal r esponse to exercise. Blood pressure demo nstrated a borderline hypertensive response to exercise. The patient's exercise capacity is average. The test was stopped due to angina and dyspnea. ECG Baseline electrocardiogram demonstrates sinus rhythm. The stress electrocardiogram was abnorma l. There is 2.[address] segment elevation in the aVR leads and 3.[address] segment depression in the II, III, aVF, V4, V5 and V6 leads Isotope Administration Nuclear imaging was accomplished using a one day protocol with 12.03 mCi of technetium tetrofosmin injected at the peak of exercise on 12/24/2020 and 3.91 mCi of technetium tetrofosmin at rest on 12/24/2020. Nuclear Study Quality Final image quality is satisfactory. Perfusion Defect The nuclear stress test is abnormal. The re is a medium sized area of moderate ischemia in the entire inferior and inferolateral segment(s) of the left ventricle. Left ventricular function is mildly reduced. TID is absent. Nuclear Prior Study A prior study was conducted on 03/24/2016 . Wall Motion Stress Summed Score: 6 Percent Normal: 8.82% Moderate count reduction in the followin g segments: apical inferior. Mild count reduction in the following se gments: basal inferior, basal inferolateral, mid inferior and mid inferolateral. The following segments are normal: basal anterior, basal anteroseptal, basal inferoseptal, basal anterolateral, mid anterior, mid anteroseptal, mid inferoseptal, mid anterolateral, apex, apical anterior, apical septal and apical lateral. Wall Motion Resting Summed Score: 0 Percent Normal: 0.00% The left ventricular perfusion is normal . Perfusion Scores: SRS Score: 0 Percentag e Abnormal: 0.00% Perfusion Scores: SSS Score: 6 Percentag e Abnormal: 8.82% Perfusion Scores: SDS Score: 6 Percentag e Abnormal: 8.82% Wall Motion Score Index: 1.00 The left ventricular wall motion is norm al. Fidencio Solis MD IMG NM ORDERABLES documented in this encounter Visit Diagnoses Not on filedocumented in this encounter Care Teams Central Office Technician Relationship Specialty Start Date End Date Anatoliy Jackson PCP - General 05/14/12 Heath More PCP - Internal Medicine INTERNAL MEDICINE - 01/06/14 MD Andreas ENDOCRINOLOGY, ENDOCRINE CLINIC DIABETES & METABOLISM [facility] [address] [facility] [address] [facility] [address] [place] [address] Peter Gipson PCP - Urology 04/02/15 MD Jordan [facility] 360 [facility] [address] [place] [address] Peter Mcmullen Assigned Musculoskeletal 06/01/20 MD Mahendra Provider [facility] [place] [address] Fidencio Solis MD Assigned Heart and 12/16/20 02/21/21 [address] Vascular Provider [address] [place], [place] [address] documented as of this encounter
--- OUTSIDE RECORDS SUMMARY | 2022-05-02 12:34 | XMS_ITS | Encounter Summary ---
:1950 Author Organization [place] Address [address] [place] [address] Care Team Providers Name Role Phone Anatoliy Jackson MD Primary Care Provider Heath More MD Unavailable Peter Gipson MD Unavailable Peter Mcmullen MD Unavailable Fidencio Solis MD Unavailable Reason for Referral (Routine) - Closed Specialty Diagnoses / Procedures Referred By Contact Refer red To Contact Diagnoses Coronary artery disease involving kaibab coronary artery of kaibab heart without angina pectoris Abnormal stress test Hallie Maldonado APRN CRM MARKETING EXECUTIVE Procedures Case Request Engine Monitor: Coronary Angiogram [address] [place] [address] Referral ID Status Reason Start Date Expiration Date Visits Requ ested Visits Authorized [id number] Closed 02/18/2021 02/18/2022 1 1 Reason for Visit Reason Comments Coronary Artery Disease (Routine) - Closed Specialty Diagnoses / Procedures Referred By Contact Refer red To Contact Diagnoses Dyspnea on exertion Coronary artery disease involving kaibab coronary artery of kaibab heart without angina pectoris S/P coronary artery stent placement Anemia due to blood loss, acute [facility] Care [address] [place] [address] Referral ID Status Reason Start Date Expiration Date Visits Requ ested Visits Authorized [id number] Closed 12/25/2020 12/25/2021 1 1 Encounter Details Date Type Department Care Team Description [facility] [address], [address] [place] [address] Coronary artery disease involving kaibab coronary artery of kaibab heart without angina pectoris (Primary Dx); [facility] Hallie Maldonado APRN CRM MARKETING EXECUTIVE [address] [address] Dyspnea on exertion; [facility] e S/P coronary artery stent pl acement; [address] Abnorma l stress test; [address] Anemia due to blood loss, ac [place]; [place], [place] 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, with long-term current use of insulin (H); [id number] Hyperlipidemia LDL goal <70 Social History Tobacco Use Types Packs/Day Years [...] Sign Reading Time Taken Comments Blood Pressure 126/64 02/18/2021 9:29 AM CDT Pulse 58 02/18/2021 9:29 AM CDT Temperature - - Respiratory Rate - - Oxygen Saturation - - Inhaled Oxygen Concentration - - Weight 100.6 kg (221 lb 12.8 oz) 02/18/2021 9:29 AM CDT Height 180.3 cm (5' 11) 02/18/2021 9:29 AM CDT Body Mass Index 30.93 02/18/2021 9:29 AM CDT documented in this encounter Patient Instructions Patient InstructionsChrisHallie irvin APRN CNP - 02/18/2021 9:30 AM CDT Thanks for participating in a office visit with the [facility] Heart clinic today. Occasional exertional shortness of breath, single episode of exertional chest pain quickly relieved with rest. Reviewed results of stress test and echocardiogram. Continue on current medical therapy. Will reach out to Dr. Solis regarding need for possible coronary angiogram. Addendum: Spoke with both Dr. Solis and patient's oncologist Dr. Robert. Okay to proceed with coronary angiogram for ischemic evaluation. Risks and benefits of the procedure were reviewed at today's visitwith verbal understanding. N.p.o. after midnight the evening prior to procedure. Hold lisinopril/hydr ochlorothiazide on the day of procedure. Insulin dose per PCP on the day of procedure. Please call my nurse at [phone] with any questions or concerns. Scheduling phone number: [phone] Reminder: Please bring in all current medications, over the counter supplements and vitamin bottles to your next appointment. documented in this encounter Progress Notes Hallie Maldonado APRN CNP - 02/18/2021 9:30 AM CDT Cardiology Clinic Progress Note Nikita Anderson Date of : 1950 Age: [age] year old Reason For Visit: Follow up Primary Automotive Project Engineer: Dr. Solis History of Presenting Illness: Nikita Anderson is a pleasant 70 year old patient who carries a past medical history significant for coronary artery disease status post PCI to the ostial/proximal circumflex, mid circumflex, and OM 2 (2014), hypertension, hyperlipidemia, diabetes, chronic kidney disease, anemia, and obesity. He was last seen on 12/14/2020 where he reported some exertional shortness of breath and fatigue. His carvedilol was reduced to 6.25 g twice daily and amlodipine was uptitrated to 7.5 mg daily. He subsequently underwent a nuclear stress test that showed a medium sized area of moderate ischemia the entire inferior and inferior lateral segment of the LV. He was noted to have a 3.[address] segment depression II, III, aVF, V4, V5 and V6 leads). Follow-up echocardiogram showed a normal ejection fraction estimated at 55 to 60%, no regional wall motion abnormalities, mildly elevated RV systolic pressure, consistent with mild pulmonary hypertension. He was recommended for coronary angiogram for further evaluation. However, he was advised to see his PCP prior to angiogram for evaluation of possibleGI bleed. He was referred to hematology/oncology (Dr. Robert) where he was initiated on B12 injections and scheduled for iron infusions beginning on 02/22/2021. He reports no further evidence of dark stools since stopping oral iron supplementation. Last hemoglobin 11.0. He returns to the office today for follow up. He continues with exertional shortness of breath and a episode of exertional chest pain while swimming. Symtpoms quickly resolved with rest. At present, he denies chest pain, shortness of breath, PND, orthopnea, presyncope, syncope, edema, heart racing, or palpitations. Blood pressure is well controlled at 126/64, heart rate 58. Last BMP showed a sodium of 142, potassium 4.8, BUN 40, creatinine 1.56(baseline), GFR 44 Last lipid panel showed total cholesterol 115, HDL 31, LDL 34, triglycerides 251 BMI 30.93 Activity level is unchanged Remains compliant with all medications. Assessment and Plan: 1. Coronary artery disease - status post PCI to the ostial/proximal circmflex, mid circumflex, and OM 2 (2014). nuclear stress test that showed a medium sized area of moderate ischemia the entire inferior and inferior lateral segment of the LV. He was noted to have a 3.[address] segment depression II, III, aVF, V4, V5 and V6 leads). Continues with episodes of exertional shortness of breath and chest pain. Recommended for coronary angiogram. Reviewed with patient's biologics specialist/oncologist ( Dr. Robert) who is agreeable to proceed with angiogram. Patient has shown no recurrent melena. Hemoglobin is stable at 11.0. Risks and benefits of coronary angiogram discussed today including, bleeding, bruising, infection, allergic reaction, kidney damage (including need for dialysis), stroke, heart attack, vascular damage, emergency open heart surgery, up to and including . Patient indicates understanding and is agreeable to proceed. N.p.o. after midnight the evening prior to procedure. Insulin dose as directed by PCP on day of procedure. Hold lisinopril/hydrochlorothiazide on the day of procedure. Okay to take a.m. medications with a small sip of water including aspirin. He is not allergic to contrast. 2. Anemia -follows with hematology/oncology. Hemoglobin is stable at 11.0 3. Hypertension -well controlled 4. Hyperlipidemia -on statin 5. Diabetes mellitus -managed on insulin 6. Chronic kidney disease -creatinine 1.56 (baseline) Thank you for allowing me to participate in this delightful patient's care. I have recommended he follow up post angiogram. Hallie Maldonado, CALLIE CRM MARKETING EXECUTIVE Review of Systems: Review of Systems: Skin: Negative Eyes: Positive for glasses ENT: Positive for hearing loss;sinus trouble;nasal congestion;postnasal drainage Respiratory: Positive for dyspnea on exertion Cardiovascular: Positive for;lightheadedness;fatigue Gastroenterology: Positive for diarrhea Genitourinary: not assessed Musculoskeletal: Positive for joint pain Neurologic: Positive for Psychiatric: Positive for sleep disturbances Heme/Lymph/Imm: Positive for allergies;night sweats;anemia Endocrine: Positive for diabetes Physical Exam: GEN: [...] and dry. No rashes or petechiae appreciated. Past Medical History: Past Medical History: Diagnosis [...] left circ 50-60%. Mod. nonobstructive CAD ??? HC LEFT HEART CATHETERIZATION 04/01/2016 mild [...] [address] [place] [address] (Wo rk) 05/15/2022 Surgery Surgery Neo Torres MD BLEPHAROPLASTY BILATERAL [place] [facility], INTERNAL & SURGEONS [place] PTOSIS REPAIR BILATERAL [address] [place] [address] (Wo rk) 06/25/2022 Ancillary Procedure Cardiology Kirk Silver MD [address] [place] [address] (Wo rk) Scheduled Procedures Name Priority Associated Diagnoses Date/Time REPAIR, PTOSIS, BILATERAL, Dermatochalas is 05/15/2022 7:30 AM CDT WITH BILATERAL BLEPHAROPLASTY 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 REPAIR, ECTROPION, EYE, Dermatochalasis 05/15/2022 7:30 AM CDT BILATERAL 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 documented as of this encounter Visit Diagnoses Diagnosis Coronary artery disease involving kaibab coronary artery of kaibab heart without angina pectoris - Primary Dyspnea on exertion Other dyspnea and respiratory abnormalit y S/P coronary artery stent placement Postsurgical percutaneous transluminal c oronary angioplasty status Abnormal stress test Other nonspecific abnormal cardiovascula r system function study Anemia due to blood loss, acute Acute posthemorrhagic anemia Type 2 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, with long-term current use of insulin (H) Hyperlipidemia LDL goal <70 Other and unspecified hyperlipidemia 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 documented in this encounter Care Teams Stripper Soft Plastic Relationship Specialty Start Date End Date Anatoliy Jackson PCP - General 05/14/12 Heath More PCP - Internal Medicine INTERNAL MEDICINE - 01/06/14 MD Andreas ENDOCRINOLOGY, ENDOCRINE CLINIC DIABETES & METABOLISM OF [facility] [address] [place] [address] Peter Gipson PCP - Urology 04/02/15 MD Jordan [facility] [address] [facility] [address] [place], [place] [id number] Peter Mcmullen Assigned Musculoskeletal 06/01/20 MD Mahendra Provider [facility] [address] [facility] [address] [place], [place] [address] Fidencio Solis MD Assigned Heart and 12/16/20 02/21/21 [address], Vascular Provider [address] [place] [id number] documented as of this encounter
--- OUTSIDE RECORDS SUMMARY | 2022-05-02 12:34 | XMS_ITS | Encounter Summary ---
:1950 Author Organization [place] Address [address] [facility] [place] [address] Care Team Providers Name Role Phone Anatoliy Jackson MD Primary Care Provider Heath More MD Unavailable Peter Gipson MD Unavailable Peter Mcmullen MD Unavailable Fidencio Solis MD Unavailable Hallie Maldonado CLOTH STRETCHER CLINICAL QUALITY ASSURANCE ASSOCIATE Unavailable [phone] Giuliana Gomez CLOTH STRETCHER CLINICAL QUALITY ASSURANCE ASSOCIATE Unavailable Fidencio Solis MD Unavailable Giuliana Gomez APRN CLINICAL QUALITY ASSURANCE ASSOCIATE Unavailable Giuliana Gomez APRN CLINICAL QUALITY ASSURANCE ASSOCIATE Unavailable [phone] Fidencio Solis MD Unavailable Reason for Referral Diagnostic Imaging XR (Routine) - Closed Specialty Diagnoses / Procedures Referred By Contact Refer red To Contact Radiology. Diagnoses Right knee pain Peter Mcmullen, Xray Rscc Procedures XR Knee Right 3 Views [address] [facility] [address] [place], [place] [address] [address] [place] [address] Phone: Fax: Referral ID Status Reason Start Date Expiration Date Visits Requ ested Visits Authorized [id number] Closed 12/31/2020 12/31/2021 1 1 Reason for Visit Reason Onset Date Comments Radiology Visit 12/31/2020 Xray Encounter Details Date Type Department Care Team Description 12/31/2020 Telephone [facility] Peter Mcmullen Radiolog y Visit (Xray) [facility] Konstantin Mccray [address] [place], [place] 4th [address] [address] [place], [place] [phone] [address] (Work) [phone] Social History Tobacco Use Types Packs/Day Years [...] been in contact with No / Unsure 01/02/2021 2:52 PM CDT someone who was confirmed or 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 documented as of this encounter Miscellaneous Notes Telephone Encounter - Sea Quinn RN - 01/01/2021 10:26 AM CDT Discussed with Dr. Mcmullen. He will call patient next week when he is back in clinic. X-rays are currently scheduled for , 01/03. Clayton Quinn RN Telephone Encounter - Sea Quinn RN - 12/31/2020 3:37 PM CDT Called Pt back to discuss. Nothing mentioned in [place]. Hip better, right knee still bothering and moreconsistent. Pt reports that Dr. Mcmullen mentioned getting an XR of the knee to make sure not missinganything. Order was not placed, but this would be ok per standing orders. XR placed and called betty joy with Pt. Will send a message to Dr. Mcmullen, but I advised that it would be a good idea to schedule either a telephone follow up or in person so that he can look at the knee. Clayton Quinn, RN Telephone Encounter - Cuca Man - 12/31/2020 2:47 PM CDT [facility] Phone Message May a detailed message be left on voicemail: yes Reason for Call: Other: Patient stated that during his virtual visit on 12/19 he was told someone will call him to schedule an xray however he hasn't heard anything yet and wondering what's going on. Action Taken: Message routed to: [facility] Sports Medicine Travel Screening: Not Applicable documented in this encounter Plan of Treatment Upcoming Encounters Date Type Specialty Care Team Description 05/15/2022 Hospital Encounter Surgery Singh Torres MD [facility] [address] [place] [id number] (Rosalva rk) 05/15/2022 Surgery Surgery Neo Torres MD BLEPHAROPLASTY BILATERAL [place] [facility], INTERNAL & SURGEONS [facility] PTOSIS REPAIR BILATERAL [address] [place] [id number] (Wo rk) 06/25/2022 Ancillary Procedure Cardiology Kirk Silver MD [address] [place] [address] ([facility]) Scheduled Procedures Name Priority Associated Diagnoses Date/Time REPAIR, PTOSIS, BILATERAL, Dermatochalas is 05/15/2022 7:30 AM CDT WITH BILATERAL BLEPHAROPLASTY 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 Minimal hypertrophi c change in the lateral and patellofemoral compartments. Normal rico llar alignment. Small knee joint effusion. No fractures are evident . Atheromatous calcification. MAVERICK EGAN MD Narrative 01/02/2021 9:25 PM CDT XR KNEE RIGHT 3 VIEWS ??01/02/2021 4:08 PM HISTORY: Right knee pain COMPARISON: None. Procedure Note Maverick Egan MD - 01/02/2021F ormatting of this note might be different from the original. XR KNEE RIGHT 3 VIEWS 01/02/2021 4:08 PM HISTORY: Right knee pain COMPARISON: None. IMPRESSION: Mild medial compartment narr owing with minimal hypertrophic change. Minimal hypertrophi c change in the lateral and patellofemoral compartments. Normal rico llar alignment. Small knee joint effusion. No fractures are evident . Atheromatous calcification. 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 documented in this encounter Care Teams Cinder Pitman Relationship Specialty Start Date End Date Anatoliy Jackson PCP - General 05/14/12 Heath More PCP - Internal Medicine INTERNAL MEDICINE - 01/06/14 MD Andreas ENDOCRINOLOGY, DIABETES ENDOCRINE CLINIC & METABOLISM OF [facility] [address] [place] [phone] Peter Gipson PCP - Urology 04/02/15 MD Jordan [facility] [address] [facility] [address] [place], [place] [id number] Peter Mcmullen Assigned Musculoskeletal 06/01/20 MD Mahendra Provider [address] [place], [place] [address] Fidencio Solis MD Assigned Heart and 12/16/20 02/21/[address], Vascular Provider [address] [place] [address] Hallie Maldonado, Assigned Heart and 02/22/2105/18 CLOTH STRETCHER CLINICAL QUALITY ASSURANCE ASSOCIATE Vascular Provider [address] [place] [address] Giuliana Gomez Assigned Heart and 05/19/2106/15/21 A, CLOTH STRETCHER CLINICAL QUALITY ASSURANCE ASSOCIATE Vascular Provider [address] [place], [place] [address] Fidencio Solis MD Assigned Heart and 06/16/21 06/29/[address], Vascular Provider [address] [place] [address] Giuliana Gomez Assigned Heart and 06/30/21 A, CLOTH STRETCHER CLINICAL QUALITY ASSURANCE ASSOCIATE Vascular Provider [address] [place] [address] Giuliana Gomez Nurse Practitioner Cardiovascular Disease 2 A, CLOTH STRETCHER CLINICAL QUALITY ASSURANCE ASSOCIATE [address] [place] [address] Fidencio Solis MD MD Cardiovascular Disease 08/21/21 [address] [place] [id number] documented as of this encounter
--- OUTSIDE RECORDS SUMMARY | 2022-05-02 12:34 | XMS_ITS | Encounter Summary ---
:1950 Author Organization [place] Address [address] [place] [address] Care Team Providers Name Role Phone Anatoliy Jackson MD Primary Care Provider Heath More MD Unavailable Peter Gipson MD Unavailable Peter Mcmullen MD Unavailable Fidencio Solis MD Unavailable Reason for Visit Diagnostic Imaging NM (Routine) - Closed Specialty Diagnoses / Procedures Referred By Contact Refer red To Contact Cardiology Diagnoses S/P coronary artery stent placement Dyspnea on exertion Fidencio Slois MD Cv Nuclear Medicine Procedures NM Exercise stress test (nuc card) [address], [address] [facility] [address] [place] [address] [place] [address] Referral ID Status Reason Start Date Expiration Date Visits Requ ested Visits Authorized [id number] Closed 12/14/2020 12/14/2021 1 1 Encounter Details Date Type Department Care Team Description 12/24/2020 Hospital Encounter M [facility] Fidencio Solis MD [facility] [address], [address] [place] [address] [place] [id number] [phone] Social History Tobacco Use Types Packs/Day Years [...] [address] [place] [address] (Wo rk) 05/15/2022 Surgery Surgery Neo Torres MD BLEPHAROPLASTY BILATERAL [place] [facility]PP[facility] L IDS, INTERNAL & SURGEONS PA PTOSIS REPAIR BILATERAL [address] [place] [address] (Wo rk) 06/25/2022 Ancillary Procedure Cardiology Kirk Silver MD [address] [place] [address] (Wo rk) Scheduled Procedures Name Priority Associated [...] (12/24/2020 2:50 PM CDT) [facility] Time Signature Target HR 149 RADIANT Baseline [...] on filedocumented in this encounter Care Teams Bolting Machine Operator Relationship Specialty Start Date End Date Anatoliy Jackson PCP - General 05/14/12 Heath More PCP - Internal Medicine INTERNAL MEDICINE - 01/06/14 MD Andreas ENDOCRINOLOGY, ENDOCRINE CLINIC DIABETES & METABOLISM [facility] [address] [facility] [address] [facility] [address] [place] [address] Peter Gipson PCP - Urology 04/02/15 MD Jordan [facility] [address] [facility] [address] [place] [address] Peter Mcmullen Assigned Musculoskeletal 06/01/20 MD Mahendra Provider [facility] [place] [address] Fidencio Solis MD Assigned Heart and 12/16/20 02/21/21 [address], Vascular Provider [address] [place], [place] [address] documented as of this encounter
--- OUTSIDE RECORDS SUMMARY | 2022-05-02 12:34 | XMS_ITS | Encounter Summary ---
:1950 Author Organization [place] Address [address] [facility] [place] [address] Care Team Providers Name Role Phone Anatoliy Jackson MD Primary Care Provider Heath More MD Unavailable Peter Gipson MD Unavailable Peter Mcmullen MD Unavailable Fidencio Solis MD Unavailable Reason for Visit Reason Comments Labs Only CMP for 01/02 visit Encounter Details Date Type Department Care Team Description 12/26/2020 Orders Only [facility] Franko Jensen artery disease involving [place] coronary artery of [place] heart without angina pectoris (Primary Dx); [facility] Heart LETICIA Cooper Chronic renal insufficiency, stage 3 (moderate) [facility] [address] Social History Tobacco Use Types [...] as of this encounter Progress Notes Allison Jensen, LETICIA - 12/26/2020 12:15 PM CDT Order CMP for for upcoming visit with Dr Will Jensen, RN 12:15 PM 12/26/20 documented in this encounter Plan of Treatment Upcoming Encounters Date Type Specialty Care Team Description 05/15/2022 Hospital Encounter Surgery Singh Torres MD [facility] [address] [place] [address] (Wo rk) 05/15/2022 Surgery Surgery Neo Torres MD BLEPHAROPLASTY BILATERAL [place] [facility], INTERNAL [facility] PTOSIS REPAIR BILATERAL [address] [address] [place] [address] (Wo rk) 06/25/2022 Ancillary Procedure Cardiology Kirk Silver MD [address] [place] [address] (Wo rk) Scheduled Procedures Name Priority Associated Diagnoses Date/Time REPAIR, PTOSIS, BILATERAL, Dermatochalas is 05/15/2022 7:30 AM CDT WITH BILATERAL BLEPHAROPLASTY 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 REPAIR, ECTROPION, EYE, Dermatochalasis 05/15/2022 7:30 AM CDT BILATERAL 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 documented as of this encounter Results (ABNORMAL) Comprehensive metabolic panel (01/02/2021 3:27 PM CDT) Analysis Performed At Patho logist Time Signature Sodium 142 133 - 144 01/02/2021 [facility] mmol/L 4:20 PM [facility] Potassium 4.8 3.4 - 5.3 01/02/2021 [facility] mmol/L 4:20 PM [facility] Chloride 112 (H) 94 - 109 01/02/2021 [facility] mmol/L 4:20 PM [facility] Carbon Dioxide 26 20 - 32 01/02/2021 [facility] mmol/L 4:27 PM [facility] Anion Gap 4 3 - 14 01/02/2021 [facility] mmol/L 4:27 PM [facility] Glucose 115 (H) 70 - 99 01/02/2021 [facility] mg/dL 4:27 PM [facility] Urea Nitrogen 40 (H) 7 - 30 01/02/2021 [facility] mg/dL 4:27 PM [facility] Creatinine 1.56 (H) 0.66 - 01/02/2021 [facility] 1.25 mg/dL 4:27 PM [facility] GFR Estimate 44 (L) >60 01/02/2021 [place] mL/min/{1. 4:27 PM [facility] 73_m2} HOSPITAL Comment: Non GFR Calc Starting 07/27/2018, serum creatinine ba sed estimated GFR (eGFR) will be calculated using the Chronic Kid[facility] Epidemiology Collaboration (CKD-EPI) equation. GFR Estimate If 51 (L) >60 mL/min/{1.73_m2} 01/02/2021 4: 27 PM [facility] Comment: GFR Calc Starting 07/27/2018, serum creatinine ba sed estimated GFR (eGFR) will be calculated using the Chronic Kidney Dise [facility] Epidemiology Collaboration (CKD-EPI) equation. Calcium 8.6 8.5 - 10.1 mg/dL 01/02/2021 4:27 PM [facility] Bilirubin Total 0.3 0.2 - 1.3 mg/dL 01/02/2021 4:[address] [facility] Albumin 3.5 3.4 - 5.0 g/dL 01/02/2021 4:28 PM [facility] Protein Total 6.9 6.8 - 8.8 g/dL 01/02/2021 4:28 PM [facility] Alkaline Phosphatase 53 40 - 150 U/L 01/02/2021 4:[address] [facility] ALT 23 0 - 70 U/L 01/02/2021 4:28 PM [facility] AST 16 0 - 45 U/L 01/02/2021 4:28 PM [facility] Specimen Anatomical Collection Method Collection Time Receive d Time (Source) Location / / Volume Laterality Blood 01/02/2021 3:27 PM 3:30 CDT PM CDT Fidencio Solis MD LAB - BLOOD ORDERABLES Performing Organization Address City/State/ZIP Code Phon e Number M [place] [address] [place] [address] [facility] [address] [place], [place] [address], [facility] [phone] [place] [address] [place] [address], [facility] [phone] HOSPITAL documented in this encounter Visit Diagnoses Diagnosis Coronary artery disease involving [place] coronary artery of [place] heart without angina pectoris - Primary Chronic renal insufficiency, stage 3 (mo derate) (H) 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 documented in this encounter Care Teams Ingot Passer Relationship Specialty Start Date End Date Anatoliy Jackson, PCP - General 05/14/12 Heath More PCP - Internal Medicine INTERNAL MEDICINE - 01/06/14 MD Andreas ENDOCRINOLOGY, [facility] DIABETES & METABOLISM [facility] [address] [facility] [address] [place] [phone] Peter Gipson PCP - Urology 04/02/15 MD Jordan [facility] [address] [place] [address] [address] [place] [address] Peter Mcmullen Assigned Musculoskeletal 06/01/20 MD Mahendra Provider [address] [place], [place] [address] Fidencio Solis MD Assigned Heart and 12/16/20 02/21/21 [address], Vascular Provider [place] [address] [place] [id number] documented as of this encounter
--- OUTSIDE RECORDS SUMMARY | 2022-05-02 12:34 | XMS_ITS | Encounter Summary ---
:1950 Author Organization [place] Address [address] [facility] [address] Care Team Providers Name Role Phone Anatoliy Jackson MD Primary Care Provider Heath More MD Unavailable Peter Gipson MD Unavailable Peter Mcmullen MD Unavailable Fidencio Solis MD Unavailable Encounter Details Date Type Department Care Team Description 12/24/2020 Travel Social History Tobacco Use Types Packs/Day [...] 05/15/2022 Hospital Encounter Surgery Singh Torres MD [facility] [address] [place] [address] (Wo rk) 05/15/2022 Surgery Surgery Neo Torres MD BLEPHAROPLASTY BILATERAL [place] [facility], INTER[facility] & [facility] PTOSIS REPAIR BILATERAL [address] [place] [address] [place] [address] (Wo rk) 06/25/2022 Ancillary Procedure Cardiology Kirk Silver MD [address] [place] [id number] (Wo rk) Scheduled Procedures Name Priority Associated [...] on filedocumented in this encounter Care Teams Utility Pipe Layer Relationship Specialty Start Date End Date Anatoliy Jackson, PCP - General 05/14/12 Heath More PCP - Internal Medicine INTERNAL MEDICINE - 01/06/14 MD Andreas ENDOCRINOLOGY, [facility] CLINIC DIABETES & METABOLISM [facility] [address] [place] [place] [phone] Peter Gipson PCP - Urology 04/02/15 MD Jordan [facility] [address] [facility] [address] [place] [address] Peter Mcmullen Assigned Musculoskeletal 06/01/20 MD Mahendra Provider [facility] [address] Fidencio Solis MD Assigned Heart and 12/16/20 02/21/21 [address], Vascular Provider [address] [place] [address] documented as of this encounter
--- OUTSIDE RECORDS SUMMARY | 2022-05-02 12:34 | XMS_ITS | Encounter Summary ---
:1950 Author Organization [place] Address [address] [facility] [place] [address] Care Team Providers Name Role Phone nAatoliy Jackson MD Primary Care Provider Heath More MD Unavailable Peter Gipson MD Unavailable Peter Mcmullen MD Unavailable Fidencio Solis MD Unavailable Encounter Details Date Type Department Care Team Description 02/18/2021 Travel Social History Tobacco Use Types Packs/Day [...] 05/15/2022 Hospital Encounter Surgery Singh Torres MD [facility] [address] [place] [address] (Wo rk) 05/15/2022 Surgery Surgery Neo Torres MD BLEPHAROPLASTY BILATERAL [place] [facility], INTERNAL & [facility] PTOSIS REPAIR BILATERAL [address] [address] [place] [address] (Wo rk) 06/25/2022 Ancillary Procedure Cardiology Kirk Silver MD [address] [place] [address] (Wo rk) Scheduled Procedures Name Priority Associated [...] on filedocumented in this encounter Care Teams Automatic Machine Attendant Relationship Specialty Start Date End Date Anatoliy Jackson, PCP - General 05/14/12 Heath More PCP - Internal Medicine INTERNAL MEDICINE - 01/06/14 MD Andreas ENDOCRINOLOGY, ENDOCRINE CLINIC DIABETES & METABOLISM [facility] [address] [place] [place] [phone] Peter Gipson PCP - Urology 04/02/15 MD Jordan [facility] [address] [facility] [address] [place] [address] Peter Mcmullen Assigned Musculoskeletal 06/01/20 MD Mahendra Provider [facility] [address] [address] Fidencio Solis MD Assigned Heart and 12/16/20 02/21/21 [address], Vascular Provider [address] [place] [address] documented as of this encounter
--- OUTSIDE RECORDS SUMMARY | 2022-05-02 12:34 | XMS_ITS | Encounter Summary ---
:1950 Author Organization [place] Address [address] [facility] [place] [address] Care Team Providers Name Role Phone Anatoliy Jackson MD Primary Care Provider Heath More MD Unavailable Peter Gipson MD Unavailable Peter Mcmullen MD Unavailable Fidencio Solis MD Unavailable Encounter Details Date Type Department Care Team Description 12/25/2020 Telephone [facility] Ruthy Solis MD [facility] [address] [facility] [address] [place] [address] [place] [address] [phone] Social History Tobacco Use Types Packs/Day Years [...] this encounter Miscellaneous Notes Telephone Encounter - Fidencio Solis MD - 12/25/2020 9:20 AM CDT Cardiology telephone note: Discussed findings of nuclear stress test 12/24/2020 demonstrating inferior and inferolateral ischemia. Recommended cardiac catheterization and possible intervention. Unfortunately Pt reports intermittent dark/black/tarry stools over the past year. Last Hgb 2017 ([facility]). Last colonoscopy was about a year ago and showed just a 3mm polyp. He is on iron supplementation but only started this about a 1-2 weeks ago. Last stress test 03/2016 demonstrated similar findings and subsequent cardiac catheterization demonstrated no significant obstructive disease. Pt denies any recent chest pain or severe dyspnea on exertion, reports that his dyspnea on exertion has been gradually worsening over the past 1-2 years, but no recent change. His clinical presentation is most consistent with stable angina. Recommend evaluating for possible GIB before proceeding with cardiac catheterization which would necessitate uninterrupted DAPT. Howeveradvised him to go to the ED if he has any chest pain/dyspnea or other concerning symptoms. Fidencio Solis MD, [facility] Cardiology Text Page December 25, 2020 documented in this encounter Plan of Treatment Upcoming Encounters Date Type Specialty Care Team Description 05/15/2022 Hospital Encounter Surgery Singh Torres MD [facility] [address] [place] [phone] (Wo rk) 05/15/2022 Surgery Surgery Neo Torres MD BLEPHAROPLASTY BILATERAL [place] [facility], INTERNAL & SURGEONS PA PTOSIS REPAIR BILATERAL [address] [place] [address] [place] [address] (Wo rk) 06/25/2022 Ancillary Procedure Cardiology Kirk Silver MD [address] [place] [phone] (Wo rk) Scheduled Procedures Name Priority Associated [...] on filedocumented in this encounter Care Teams Supervisor Burling And Joining Relationship Specialty Start Date End Date Anatoliy Jackson, PCP - General 05/14/12 Heath More PCP - Internal Medicine INTERNAL MEDICINE - 01/06/14 MD Andreas ENDOCRINOLOGY, ENDOCRINE CLINIC DIABETES & METABOLISM [facility] [address] [place] [phone] Peter Gipson PCP - Urology 04/02/15 MD Jordan [facility] [address] [place] [address] Peter Mcmullen Assigned Musculoskeletal 06/01/20 MD Mahendra Provider [facility] [address] [facility] [address] [place], [place] [address] Fidencio Solis MD Assigned Heart and 12/16/20 02/21/21 [address], Vascular Provider [facility] [address] [place] [address] documented as of this encounter
--- OUTSIDE RECORDS SUMMARY | 2022-05-02 12:34 | XMS_ITS | Encounter Summary ---
:1950 Author Organization [place] Address [address] [facility] [place] [address] Care Team Providers Name Role Phone Anatoliy Jackson MD Primary Care Provider Heath More MD Unavailable Peter Gipson MD Unavailable Peter Mcmullen MD Unavailable Anabella Loving MD Unavailable Reason for Referral CV Testing (Routine) - Closed Specialty Diagnoses / Procedures Referred By Contact Refer red To Contact Diagnoses Dyspnea on exertion Anabella Loving MD Procedures Echocardiogram Complete [facility] TTE W/DOPPLER, COMPLETE [facility] ECHO COMPLETE W DOPPLER W CONTRAST [facility] ECHO COMPLETE W DOPPLER W/O CONTRAST [facility] IV PUSH SINGLE, INITIAL SUBSTANCE [facility] US GUIDE FOR PERICARDIOCENTESIS [address], [place] [facility] ECHO MYOCARD BX ZZC INJECTION, PERFLUTREN LIPID MICROSPHERES, PER ML [facility] STATISTIC IV PUSH SINGLE INITIAL SUBSTANCE NC ECHO MYOCARD BX NC INJECTION, PERFLUTREN LIPID MICROSPHERES, PER ML NC TTE W/DOPPLER, COMPLETE [address] [place] IV PUSH SINGLE, INITIAL S UBSTANCE NC TTE W/DOPPLER, COMPLETE NC TTE W/DOPPLER, COMPLETE HC US GUIDE FOR PERICARDIOCENTESIS HC ECHO MYOCARD BX HC IV PUSH SINGLE, INITIAL SUBSTANCE HC STATISTIC IV PUSH SINGLE INITIAL SUBSTANCE [place] [address] HC ECHO COMPLETE W DOPPLER W CONTRAST HC ECHO COMPLETE W DOPPLER W/O CONTRAST Referral ID Status Reason Start Date Expiration Date Visits Requ ested Visits Authorized [id number] Closed 12/15/2020 12/15/2021 1 1 Reason for Visit CV Testing (Routine) - Closed Specialty Diagnoses / Procedures Referred By Contact Refer red To Contact Diagnoses Dyspnea on exertion Anabella Loving MD Procedures Echocardiogram Complete ZZHC TTE W/DOPPLER, COMPLETE ZZ[facility] ECHO COMPLETE W DOPPLER W CONTRAST ZZ[facility] ECHO COMPLETE W DOPPLER W/O CONTRAST ZZ[facility] IV PUSH SINGLE, INITIAL SUBSTANCE ZZ[facility] US GUIDE FOR PERICARDIOCENTESIS [address], [place] ZZ[facility] ECHO MYOCARD BX ZZC INJECTION, PERFLUTREN LIPID MICROSPHERES, PER ML ZZ[facility] STATISTIC IV PUSH SINGLE INITIAL SUBSTANCE NC ECHO MYOCARD BX NC INJECTION, PERFLUTREN LIPID MICROSPHERES, PER ML NC TTE W/DOPPLER, COMPLETE [address] [place] IV PUSH SINGLE, INITIAL S UBSTANCE NC TTE W/DOPPLER, COMPLETE NC TTE W/DOPPLER, COMPLETE HC US GUIDE FOR PERICARDIOCENTESIS HC ECHO MYOCARD BX HC IV PUSH SINGLE, INITIAL SUBSTANCE HC STATISTIC IV PUSH SINGLE INITIAL SUBSTANCE [place] [address] HC ECHO COMPLETE W DOPPLER W CONTRAST HC ECHO COMPLETE W DOPPLER W/O CONTRAST Referral ID Status Reason Start Date Expiration Date Visits Requ ested Visits Authorized [id number] Closed 12/15/2020 12/15/2021 1 1 Encounter Details Date Type Department Care Team Description 01/02/2021 Hospital Encounter M [facility] Anabella Loving MD Dyspnea on exertion [facility] [address] [facility] Care S, [place] [address] [address] [facility] [place] [address] [place], [place] (Work) [address] Social History Tobacco Use [...] B-D MICRO FINE as directed 100 0 09/18/20042 CC SYRINGES Turmeric 500 MG CAPS Take [...] Coronary artery disease daily (with meals) involving [place] coronary artery of [place] heart without angina pectoris cloNIDine (CATAPRES) Take [...] artery disease (If pain is not involving [place] relieved 5 minutes coronary artery of after 1st dose call [place] heart without 911) angina pectoris rosuvastatin (CRESTOR) Take 1 tablet (40 mg) 90 tablet 3 01/03/2021 40 MG by mouth every tabletIndications: evening Coronary artery disease involving [place] coronary artery of [place] heart without angina pectoris, Hyperlipidemia LDL goal [...] 05/15/2022 Hospital Encounter Surgery Singh Torres MD [facility] [address] [place] [address] (Wo rk) 05/15/2022 Surgery Surgery Neo Torres MD BLEPHAROPLASTY BILATERAL [facility], INTERNAL & SURGE[facility] PTOSIS REPAIR BILATERAL [address] [place] [place] [address] (Wo rk) 06/25/2022 Ancillary Procedure Cardiology Kirk Silver MD [address] [place] [address] (Wo rk) Scheduled Procedures Name Priority Associated [...] Priority Date/Time Associated Diagnosis Comme nts ECHO COMPLETE Routine 01/02/2021 3:28 PM Dyspnea on exertion R esults for this CDT procedure are i n the results section . documented in this encounter Results ECHO COMPLETE (01/02/2021 3:28 PM CDT) Anatomical Region Laterality Modality Echocardiography Specimen (Source) Anatomical Collection Method Collection Time Re ceived Time Location / / Volume Laterality 01/02/2021 3:00 PM CDT Narrative 01/02/2021 4:14 PM CDT [id number]^FABIENNE^KRISTOPHER [facility] Echocardiography Laboratory [address] [place] [address] Name: NIKITA ANDERSON : 1950 Study Date: 01/02/2021 03:00 PM Age: 70 yrs Gender: Male Patient Location: [facility] Reason For Study: Dyspnea on exertion Ordering Physician: ANABELLA LOVING Referring Physician: ANABELLA LOVING Performed By: Chula Rivers BSA: 2.2 m2 Height: 71 in Weight: 225 lb BP: 140/74 mmHg Procedure Complete Echo Adult. Interpretation Summary Left ventricular systolic function is no rmal. The visual ejection fraction is estimate d at 55-60%. No regional wall motion abnormalities no ambrosio. The right ventricular systolic pressure is approximated at 35mmHg plus the right atrial pressure. Right ventricular systolic pressure is e levated, consistent with mild pulmonary hypertension. The study was technically adequate. Comp ared to the prior study dated 2011, there have been no changes. Left Ventricle The left ventricle is borderline dilated . There is normal left ventricular wall thickness. Left ventricular systoli c function is normal. The visual ejection fraction is estimated at 55-60% . Left ventricular diastolic function is indeterminate. No regional wall motio n abnormalities noted. Right Ventricle The right ventricle is normal size. The right ventricular systolic function is normal. Atria Normal left atrial size. Right atrial si ze is normal. Mitral Valve There is trace mitral regurgitation. Tricuspid Valve There is trace to mild tricuspid regurgi tation. IVC diameter <2.1 cm collapsing >50% with sniff suggests a no rmal RA pressure of 3 mmHg. Right ventricular systolic pressure is elevate d, consistent with mild pulmonary hypertension. The right ventricular syst olic pressure is approximated at 35mmHg plus the right atrial pressure. Aortic Valve There is mild trileaflet aortic sclerosi s. No aortic stenosis is present. Pulmonic Valve [...] 7.1 Medial E/e': 15.8 Report approved by: Miko Guan 04:14 PM Procedure Note Christiano Vasquez MD - 01/02/2021For matting of this note might be different from the original. [id number]^FABIENNE^ANABELLA^Pepito [facility] Echocardiography Laboratory [address] [place] [address] Name: NIKITA ANDERSON : 1950 Study Date: 01/02/2021 03:00 PM Age: 70 yrs Gender: Male Patient Location: [facility] Reason For Study: Dyspnea on exertion Ordering Physician: ANABELLA LOVING Referring Physician: ANABELLA LOVING Performed By: Chula Rivers BSA: 2.2 m2 Height: 71 in Weight: 225 lb BP: 140/74 mmHg Procedure Complete Echo Adult. Interpretation Summary Left ventricular systolic function is no rmal. The visual ejection fraction is estimate d at 55-60%. No regional wall motion abnormalities no ambrosio. The right ventricular systolic pressure is approximated at 35mmHg plus the right atrial pressure. Right ventricular systolic pressure is e levated, consistent with mild pulmonary hypertension. The study was technically adequate. Comp ared to the prior study dated 2011, there have been no changes. Left Ventricle The left ventricle is borderline dilated . There is normal left ventricular wall thickness. Left ventricular systoli c function is normal. The visual ejection fraction is estimated at 55-60% . Left ventricular diastolic function is indeterminate. No regional wall motio n abnormalities noted. Right Ventricle The right ventricle is normal size. The right ventricular systolic function is normal. Atria Normal left atrial size. Right atrial si ze is normal. Mitral Valve There is trace mitral regurgitation. Tricuspid Valve There is trace to mild tricuspid regurgi tation. IVC diameter <2.1 cm collapsing >50% with sniff suggests a no rmal RA pressure of 3 mmHg. Right ventricular systolic pressure is elevate d, consistent with mild pulmonary hypertension. The right ventricular syst olic pressure is approximated at 35mmHg plus the right atrial pressure. Aortic Valve There is mild trileaflet aortic sclerosi s. No aortic stenosis is present. 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 documented in this encounter Care Teams Ux Designer Relationship Specialty Start Date End Date Anatoliy Jackson, PCP - General 05/14/12 Heath More PCP - Internal Medicine INTERNAL MEDICINE - 01/06/14 MD Andreas ENDOCRINOLOGY, ENDOCRINE CLINIC DIABETES & METABOLISM OF [facility] [address] [facility] [address] [place] [address] Peter Gipson PCP - Urology 04/02/15 MD Jordan [facility] [address] [facility] [address] [place] [address] Peter Mcmullen Assigned Musculoskeletal 06/01/20 MD Mahendra Provider [address] [place], [place] [address] Anabella Loving MD Assigned Heart and 12/16/20 02/21/21 [address], Vascular Provider [place] [address] [place] [address] documented as of this encounter
--- OUTSIDE RECORDS SUMMARY | 2022-05-02 12:34 | XMS_ITS | Encounter Summary ---
:1950 Author Organization [place] Address [address] [facility] [place] [address] Care Team Providers Name Role Phone Anatoliy Jackson MD Primary Care Provider Heath More MD Unavailable Peter Gipson MD Unavailable Peter Mcmullen MD Unavailable Fidencio Solis MD Unavailable Reason for Visit Reason Onset Date Comments Refill Request 02/04/2021 lisinopril-hctz Encounter Details Date Type Department Care Team Description 02/04/2021 Refill [facility] Ruthy Solis MD Refill Request [facility] [address] [facility] [address] , (lisinopr il-hctz) [facility] [address] [address] [place], [place] [address] [address] [place] [address] Social History Tobacco Use Types [...] [address] [place] [address] (Wo rk) 05/15/2022 Surgery Surgery Neo Torres MD BLEPHAROPLASTY BILATERAL [place] [facility] L IDS, INTERNAL & SURGEONS [place] PTOSIS REPAIR BILATERAL [address] [place] [address] (Wo rk) 06/25/2022 Ancillary Procedure Cardiology Kirk Silver MD [address] [place] [address] (Wo rk) Scheduled Procedures Name Priority Associated Diagnoses Date/Time REPAIR, PTOSIS, BILATERAL, Dermatochalas is 05/15/2022 7:30 AM CDT WITH BILATERAL BLEPHAROPLASTY 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 REPAIR, ECTROPION, EYE, Dermatochalasis 05/15/2022 7:30 AM CDT BILATERAL 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 documented as of this encounter Visit Diagnoses Diagnosis Coronary artery disease involving false pass coronary artery of false pass heart without angina pectoris S/P coronary artery stent placement 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 documented in this encounter Care Teams Dumpster Driver Relationship Specialty Start Date End Date Anatoliy Jackson PCP - General 05/14/12 Heath More PCP - Internal Medicine INTERNAL MEDICINE - 01/06/14 MD Andreas ENDOCRINOLOGY, [facility]INE [facility]INIC DIABETES & METABOLISM [facility] [address] [place] [phone] Peter Gipson PCP - Urology 04/02/15 MD Jordan [facility] 360 [facility] [address] [place] [address] Peter Mcmullen Assigned Musculoskeletal 06/01/20 MD Mahendra Provider [facility]2 [address] [facility] [address] [place], [place] [phone] Fidencio Solis MD Assigned Heart and 12/16/20 02/21/21 [address], Vascular Provider [facility] [address] [place] [id number] documented as of this encounter
--- OUTSIDE RECORDS SUMMARY | 2022-05-02 12:34 | XMS_ITS | Encounter Summary ---
:1950 Author Organization [place] Address [address] [facility] [place] [address] Care Team Providers Name Role Phone Anatoliy Jackson MD Primary Care Provider Heath More MD Unavailable Peter Gipson MD Unavailable Peter Mcmullen MD Unavailable Fidencio Solis MD Unavailable Reason for Visit Reason Onset Date Comments Refill Request 01/03/2021 Rosuvastatin Encounter Details Date Type Department Care Team Description 01/03/2021 Refill [facility] Ruthy Solis MD Refill Request Clinic [address] [facility], (Rosuvastatin) [phone] [place] [address] [place] [id number] [phone] Social History Tobacco Use Types Packs/Day Years [...] [address] [place] [id number] (Wo rk) 05/15/2022 Surgery Surgery Neo Torres MD BLEPHAROPLASTY BILATERAL [place] [facility] L IDS, INTERNAL & SURGEONS PA PTOSIS REPAIR BILATERAL [address] [place] [phone] (Wo rk) 06/25/2022 Ancillary Procedure Cardiology Kirk Silver MD [address] [place] [phone] (Wo rk) Scheduled Procedures Name Priority Associated Diagnoses Date/Time REPAIR, PTOSIS, BILATERAL, Dermatochalas is 05/15/2022 7:30 AM CDT WITH BILATERAL BLEPHAROPLASTY 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 REPAIR, ECTROPION, EYE, Dermatochalasis 05/15/2022 7:30 AM CDT BILATERAL 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 documented as of this encounter Visit Diagnoses Diagnosis Coronary artery disease involving united keetoowah coronary artery of united [place] heart without angina pectoris Hyperlipidemia LDL goal <70 Other and unspecified hyperlipidemia S/P coronary artery stent placement 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 documented in this encounter Care Teams Solutions Delivery Consultant Relationship Specialty Start Date End Date Antaoliy Jackson, PCP - General 05/14/12 Heath More PCP - Internal Medicine INTERNAL MEDICINE - 01/06/14 MD Andreas ENDOCRINOLOGY, ENDOCRINE CLINIC DIABETES & METABOLISM OF [facility] [address] [place] [phone] Peter Gipson PCP - Urology 04/02/15 MD Jordan [facility] [address] [place] [address] Peter Mcmullen Assigned Musculoskeletal 06/01/20 MD Mahendra Provider [address] [place], [place] [id number] [place], [place] [address] Fidencio Solis MD Assigned Heart and 12/16/20 02/21/21 [address], Vascular Provider [facility] [address] [place] [address] documented as of this encounter
--- OUTSIDE RECORDS SUMMARY | 2022-05-02 12:34 | XMS_ITS | Encounter Summary ---
:1950 Author Organization [place] Address [address] [facility] [place] [address] Care Team Providers Name Role Phone Anatoliy Jackson MD Primary Care Provider Heath More MD Unavailable Peter Gipson MD Unavailable Peter Mcmullen MD Unavailable Hallie Maldonado APRN ADVANCED SOLUTIONS ARCHITECT Unavailable [phone] Reason for Visit Reason Comments Medication Refill Encounter Details Date Type Department Care Team Description 02/24/2021 Refill [facility] Peter Reyes, Medication [place] [address] [place] [address] [place], [place] [phone] [place], [place] [address] [place], [place] [phone] (Wo rk) Social History Tobacco Use Types [...] 05/15/2022 Hospital Encounter Surgery Singh Torres MD [facility] [address] [place] [address] (Wo rk) 05/15/2022 Surgery Surgery Neo Torres MD BLEPHAROPLASTY BILATERAL 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 REPAIR, ECTROPION, EYE, Dermatochalasis 05/15/2022 7:30 AM CDT BILATERAL 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 documented as of this encounter Visit Diagnoses Diagnosis DDD (degenerative disc disease), lumbar Degeneration of lumbar or lumbosacral in tervertebral disc 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 documented in this encounter Care Teams Senior Talent Management Consultant Relationship Specialty Start Date End Date Anatoliy Jackson PCP - General 05/14/12 Heath More PCP - Internal Medicine INTERNAL MEDICINE - 01/06/14 MD Andreas ENDOCRINOLOGY, [facility]INE [facility]IC DIABETES & [facility]ABOLISM [facility] [place] [address] [facility] [address] [place] [phone] Peter Gipson PCP - Urology 04/02/15 MD Jordan [facility] 360 [facility] 450 [place], [place] [id number] Peter Mcmullen Assigned Musculoskeletal 06/01/20 MD Mahendra Provider [facility]2 S [facility] [address] [place], [place] [address] Hallie Maldonado, Assigned Heart and 02/22/2105/18 ORACLE SOA CONSULTANT ADVANCED SOLUTIONS ARCHITECT Vascular Provider [address] [place] [address] documented as of this encounter
--- OUTSIDE RECORDS SUMMARY | 2022-05-02 12:34 | XMS_ITS | Encounter Summary ---
:1950 Author Organization [place] Address [address] [facility] [place] [address] Care Team Providers Name Role Phone Anatoliy Jackson MD Primary Care Provider Heath More MD Unavailable Peter Gipson MD Unavailable Peter Mcmullen MD Unavailable Fidencio Solis MD Unavailable Reason for Referral Diagnostic Imaging XR (Routine) - Closed Specialty Diagnoses / Procedures Referred By Contact Refer red To Contact Radiology. Diagnoses Right knee pain Peter Mcmullen Rh Xray Rscc Procedures XR Knee Right 3 [id number] [place] [id number] [place], [place] [address] [place] [address] Phone: Fax: Referral ID Status Reason Start Date Expiration Date Visits Requ ested Visits Authorized [id number] Closed 12/31/2020 12/31/2021 1 1 Reason for Visit Diagnostic Imaging XR (Routine) - Closed Specialty Diagnoses / Procedures Referred By Contact Refer red To Contact Radiology. Diagnoses Right knee pain Peter Mcmullen Rh Xray Rscc Procedures XR Knee Right [email or web address] [place], [place] [address] [place] [address] Phone: Fax: Referral ID Status Reason Start Date Expiration Date Visits Requ ested Visits Authorized [id number] Closed 12/31/2020 12/31/2021 1 1 Encounter Details Date Type Department Care Team Description 01/02/2021 Hospital Encounter [facility] Peter Mcmullen ght knee pain [facility] MD Mahendra [email or web address] [place] [address] Social History Tobacco Use Types Packs/Day Years [...] Coronary artery disease daily (with meals) involving tuscarora coronary artery of tuscarora heart without angina pectoris cloNIDine (CATAPRES) Take [...] artery disease (If pain is not involving tuscarora relieved 5 minutes coronary artery of after 1st dose call tuscarora heart without 911) angina pectoris rosuvastatin (CRESTOR) Take 1 tablet (40 mg) 90 tablet 3 01/03/2021 40 MG by mouth every tabletIndications: evening Coronary artery disease involving tuscarora coronary artery of tuscarora heart without angina pectoris, Hyperlipidemia LDL goal [...] [address] [place] [address] (Wo rk) 05/15/2022 Surgery Surgery Neo Torres MD BLEPHAROPLASTY BILATERAL [place] [facility]PPER L IDS, INTERNAL & SURGEONS PA PTOSIS REPAIR BILATERAL [address] [place] [address] (Wo rk) 06/25/2022 Ancillary Procedure Cardiology Kirk Silver MD [address] [place] [address] (Wo rk) Scheduled [...] Priority Date/Time Associated Diagnosis Comme nts XR KNEE RIGHT 3 Routine 01/02/2021 4:08 PM Right knee pain Res ults for this VIEWS CDT procedure are i n the results section. 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 documented in this encounter Care Teams Cake Puller Relationship Specialty Start Date End Date Anatoliy Jackson, PCP - General 05/14/12 Heath More PCP - Internal Medicine INTERNAL MEDICINE - 01/06/14 MD Andreas ENDOCRINOLOGY, ENDOCRINE CLINIC DIABETES & METABOLISM [facility] [address] [place] [phone] Peter Gipson PCP - Urology 04/02/15 MD Jordan [facility] 360 [facility] 450 [place] [address] Peter Mcmullen Assigned Musculoskeletal 06/01/20 MD Mahendra Provider [facility]2 S [facility] [address] [place] [address] Fidencio Solis MD Assigned Heart and 12/16/20 02/21/21 [address], Vascular Provider [facility] [address] [place] [address] documented as of this encounter
--- OUTSIDE RECORDS SUMMARY | 2022-05-02 12:34 | XMS_ITS | Encounter Summary ---
:1950 Author Organization [place] Address [address] [facility] [place] [address] Care Team Providers Name Role Phone Anatoliy Jackson MD Primary Care Provider Heath More MD Unavailable Peter Gipson MD Unavailable Peter Mcmullen MD Unavailable Fidencio Solis MD Unavailable Encounter Details Date Type Department Care Team Description 01/02/2021 Travel Social History Tobacco Use Types Packs/Day [...] 05/15/2022 Hospital Encounter Surgery Singh Torres MD [facility] [address] [place] [address] (Wo rk) 05/15/2022 Surgery Surgery Neo Torres MD BLEPHAROPLASTY BILATERAL [place] [facility]PPER L IDS, INTERNAL & SURGEONS PA PTOSIS REPAIR BILATERAL [address] [place] [address] (Wo rk) 06/25/2022 Ancillary Procedure Cardiology Kirk Silver MD [address] [place] [address] (Wo rk) Scheduled Procedures Name Priority Associated [...] on filedocumented in this encounter Care Teams Shake Table Operator Relationship Specialty Start Date End Date Anatoliy Jackson, PCP - General 05/14/12 Heath More PCP - Internal Medicine INTERNAL MEDICINE - 01/06/14 MD Andreas ENDOCRINOLOGY, ENDOCRINE CLINIC DIABETES & METABOLISM [facility] [address] [place] [phone] Peter Gipson PCP - Urology 04/02/15 MD Jordan [facility] 360 [facility] 450 [place] [address] Peter Mcmullen Assigned Musculoskeletal 06/01/20 MD Mahendra Provider [facility] [address] Fidencio Solis MD Assigned Heart and 12/16/20 02/21/21 [address], Vascular Provider [address] [place] [address] documented as of this encounter
--- OUTSIDE RECORDS SUMMARY | 2022-05-02 12:34 | XMS_ITS | Encounter Summary ---
:1950 Author Organization [place] Address [address] [facility] [place] [address] Care Team Providers Name Role Phone Anatoliy Jackson MD Primary Care Provider Heath More MD Unavailable Peter Gipson MD Unavailable Peter Mcmullen MD Unavailable Hallie Maldonado APRN REFRACTORY FURNACE DESIGNER Unavailable [phone] Encounter Details Date Type Department Care Team Description 03/10/2021 Lab [facility] for screening for Hospital other viral diseases [address] [place] [address] Social History Tobacco Use [...] [address] [place] [address] (Wo rk) 05/15/2022 Surgery Surgery Neo Torres MD BLEPHAROPLASTY BILATERAL [place] [facility] L IDS, INTERNAL & SURGEONS PA PTOSIS REPAIR BILATERAL [address] [place], [place] [address] (Wo rk) 06/25/2022 Ancillary Procedure Cardiology Kirk Silver MD [address] [place], [place] [address] (Wo rk) Scheduled Procedures Name Priority Associated [...] Name Priority Date/Time Associated Diagnosis Comme nts SARS-COV2 Routine 03/10/2021 10:37 AM Encounter for Results for this (COVID-19) VIRUS CDT screening for other proc edure are in RT-PCR viral diseases the results section. COVID-19 VIRUS Routine 03/10/2021 10:37 AM Encounter for Resul ts for this (CORONAVIRUS) BY CDT screening for other proc edure are in PCR viral diseases the results section. documented in this encounter Results SARS-COV2 (COVID-19) Virus RT-PCR (03/10/2021 10:37 AM CDT) Analysis Performed At Patho logist Time Signature SARS CoV2 PCR Negative Negative 03/10/2021 [facility] 8:56 PM CDT LABORATORY Comment: NEGATIVE: SARS-CoV-2 (COVID-19) RNA not detected, presumed negative. Specimen Anatomical Location / Collection Method Collection Abiodun e Received Time (Source) Laterality / Volume Swab NASOPHARYNGEAL Non-blood 03/10/2021 10:37 STRUCTURE / Unknown Collection / AM CDT 10:37 AM CDT Unknown Narrative [facility] - 03/10/2021 8:56 PM C DT Testing was performed using the Xpert Xpress SARS-CoV-2 Assay on the [employer] Systems. A dditional information about this Emergency Use Authorization (EUA) a ssay can be found via the Lab Guide. [...] to perform high complexity lab oratory testing. Hallie Maldonado APRN REFRACTORY FURNACE DESIGNER LAB - MICRO GENERAL ORDERABL ES Performing Organization Address City/State/ZIP Code Phon e Number [facility] [place] [phone] Diag. 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 documented in this encounter Care Teams Curtain Hemmer Automatic Relationship Specialty Start Date End Date Anatoliy Jackson, PCP - General 05/14/12 Heath More PCP - Internal Medicine INTERNAL MEDICINE - 01/06/14 MD Andreas ENDOCRINOLOGY, ENDOCRINE CLINIC DIABETES & METABOLISM [place] [address] [facility] [address] [place] [phone] Peter Gipson PCP - Urology 04/02/15 MD Jordan [facility] 360 [facility] 450 [place] [address] Peter Mcmullen Assigned Musculoskeletal 06/01/20 MD Mahendra Provider [address] [place], [place] [address] Hallie Maldonado, Assigned Heart and 02/22/2105/18 EXPERIMENTAL OUTBOARD MOTORS MECHANIC REFRACTORY FURNACE DESIGNER Vascular Provider [address] [place] [address] documented as of this encounter
--- OUTSIDE RECORDS SUMMARY | 2022-05-02 12:34 | XMS_ITS | Encounter Summary ---
:1950 Author Organization [place] Address [address] [place] [address] Care Team Providers Name Role Phone Anatoliy Jackson MD Primary Care Provider Heath More MD Unavailable Peter Gipson MD Unavailable Peter Mcmullen MD Unavailable Fidencio Solis MD Unavailable Reason for Referral (Routine) - Closed Specialty Diagnoses / Procedures Referred By Contact Refer red To Contact Diagnoses Dyspnea on exertion Coronary artery disease involving chickahominy indian tribe coronary artery of chickahominy indian tribe heart without angina pectoris S/P coronary artery stent placement Anemia due to blood loss, acute [facility] [address] [place] [address] Referral ID Status Reason Start Date Expiration Date Visits Requ ested Visits Authorized [id number] Closed 12/25/2020 12/25/2021 1 1 Encounter Details Date Type Department Care Team Description 12/25/2020 [facility] [address] [place] [address] Social History Tobacco Use [...] Telephone Encounter - Laureen Emerson RN - 12/25/2020 1:21 PM CDT ----- Message from Fidencio Solis MD sent at 12/25/2020 9:26 AM CDT ----- Results reviewed with Pt, please see telephone note. Please have him get a CBC and full iron panel, and have him see his PCP regarding eval for possible GIB, and have him follow up with cardiology SERAFIN in about 2-3 weeks for reassessment, thanks! Call placed to pt to review recommendations. Pt has not reached ut to PMD to make OV at this time. Pt has TTE scheduled 10/05/20 labs scheduled same day. Pt reports that he will call to schedule follow up with SERAFIN once he has scheduled an OV with his PMD. Reminder letter sent. Wayne Emerson RN, BSN. 12/25/20 2:21 PM documented in this encounter Plan of Treatment Upcoming Encounters Date Type Specialty Care Team Description 05/15/2022 Hospital Encounter Surgery Singh Torres MD [facility] [address] [place] [address] (Wo rk) 05/15/2022 Surgery Surgery Neo Torres MD BLEPHAROPLASTY BILATERAL [facility] PTOSIS REPAIR BILATERAL [address] [place] [id number] (Wo rk) 06/25/2022 Ancillary Procedure Cardiology Kirk Silver MD [address] [place] [id number] (Wo rk) Scheduled Procedures Name Priority Associated Diagnoses Date/Time REPAIR, PTOSIS, BILATERAL, Dermatochalas is 05/15/2022 7:30 AM CDT WITH BILATERAL BLEPHAROPLASTY 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 REPAIR, ECTROPION, EYE, Dermatochalasis 05/15/2022 7:30 AM CDT BILATERAL 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 Scheduled Referrals Name Type Priority Associated Diagnoses Order S chedule Follow-Up with Cardiac Referral Routine Dyspnea o n exertion Expected: 01/08/2021 [facility] Coronary artery disease (Approximate), Provider involving chickahominy indian tribe Expires: coronary artery of chick[place]ominy indian tribe heart without angina pectoris S/P coronary artery stent placement Anemia due to blood loss, acute documented as of this encounter Results Transferrin (01/02/2021 3:27 PM CDT) athologist Signature Transferrin 244 210 - 360 01/02/2021 [facility] mg/dL 9:33 PM CDT [facility] Specimen Anatomical Collection Method Collection Time Receive d Time (Source) Location / / Volume Laterality Blood 01/02/2021 3:27 PM 3:30 CDT PM CDT Fidencio Solis MD LAB - BLOOD ORDERABLES Performing Organization Address City/State/ZIP Code Phon e Number [facility] [address] [place] [address] [facility] Ferritin (01/02/2021 3:27 PM CDT) athologist Signature Ferritin 148 26 - 388 01/02/2021 [facility] ng/mL 5:01 PM CDT HOSPITAL Specimen Anatomical Collection Method Collection Time Receive d Time (Source) Location / / Volume Laterality Blood 01/02/2021 3:27 PM 1 3:30 CDT PM CDT Fidencio Solis MD LAB - BLOOD ORDERABLES Performing Organization Address City/[facility]/ZIP Code Phon e Number M [facility] [address] [place], [place] [address] [facility] [address] [place], [place] [address], [facility] [phone] Iron and iron binding capacity (01/02/2021 3:27 PM CDT) P athologist Signature Iron 87 35 - 180 01/02/2021 [facility] ug/dL 4:57 PM [facility] Iron Binding 288 240 - 430 01/02/2021 [place] Cap ug/dL 4:57 PM [facility] Iron Saturation 30 15 - 46 % 01/02/2021 [place] Index 4:57 PM [facility] Specimen Anatomical Collection Method Collection Time Receive d Time (Source) Location / / Volume Laterality Blood 01/02/2021 3:27 PM 1 3:30 CDT PM CDT Fidencio Solis MD LAB - BLOOD ORDERABLES Performing Organization Address City/[facility] Phon e Number M [facility] [address] [place], [place] [address] [facility] [address], [place] [address], [facility] [phone] (ABNORMAL) CBC with platelets (01/02/2021 3:27 PM CDT) Analysis Performed At Patho logist Time Signature WBC 8.8 4.0 - 11.0 01/02/2021 [place] 10e9/L 4:05 PM [facility] RBC Count 3.93 (L) 4.4 - 5.9 01/02/2021 [place] 10e12/L 4:05 PM [facility] Hemoglobin 11.3 (L) 13.3 - 01/02/2021 [facility] 17.7 g/dL 4:05 PM [facility] Hematocrit 34.5 (L) 40.0 - 01/02/2021 [facility] 53.0 % 4:05 PM [facility] MCV 88 78 - 100 01/02/2021 [facility] fl 4:05 PM [facility] MCH 28.8 26.5 - 01/02/2021 [facility] 33.0 pg 4:05 PM [facility] MCHC 32.8 31.5 - 01/02/2021 [facility] 36.5 g/dL 4:05 PM [facility] RDW 12.9 10.0 - 01/02/2021 [facility] 15.0 % 4:05 PM [facility] Platelet Count 202 150 - 450 01/02/2021 [facility] 10e9/L 4:05 PM [facility] Specimen Anatomical Collection Method Collection Time Receive d Time (Source) Location / / Volume Laterality Blood 01/02/2021 3:27 PM 3:30 CDT PM CDT Fidencio Solis MD LAB - BLOOD ORDERABLES Performing Organization Address City/State/ZIP Code Phon e Number M [place] [address] [place] [address] [facility] [address] [phone] documented in this encounter Visit Diagnoses Diagnosis Dyspnea on exertion - Primary Other dyspnea and respiratory abnormalit y Coronary artery disease involving chickahominy indian tribe coronary artery of chickahominy indian tribe heart without angina pectoris S/P coronary artery stent placement Postsurgical percutaneous transluminal c oronary angioplasty status Anemia due to blood loss, acute Acute posthemorrhagic anemia 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 documented in this encounter Care Teams Java Consultant Relationship Specialty Start Date End Date Anatoliy Jackson PCP - General 05/14/12 Heath More PCP - Internal Medicine INTERNAL MEDICINE - 01/06/14 MD Andreas [facility]OCR[facility]OLOG[facility] DIABETES & METABOLISM [address] [place] [phone] Peter Gipson PCP - Urology 04/02/15 MD Jordan [facility] [address] [facility] [address] [place] [address] Peter Mcmullen Assigned Musculoskeletal 06/01/20 MD Mahendra Provider [facility] [place], [place] [address] Fidencio Solis MD Assigned Heart and 12/16/20 02/21/21 [address], Vascular Provider [facility] [address] [place] [id number] documented as of this encounter
--- OUTSIDE RECORDS SUMMARY | 2022-05-02 12:34 | XMS_ITS | Encounter Summary ---
:1950 Author Organization [place] Address [address] [facility] [place] [address] Care Team Providers Name Role Phone Anatoliy Jackson MD Primary Care Provider Heath More MD Unavailable Peter Gipson MD Unavailable Peter Mcmullen MD Unavailable Fidencio Solis MD Unavailable Encounter Details Date Type Department Care Team Description 01/02/[address] [facility] Heart Frank[place] nary artery disease involving [place] coronary artery of [place] heart without angina pectoris; [facility] Chronic renal insufficiency, stage 3 (moderate); [address] [facility] [address] yspnea on exertion; 140 S/P coronary artery stent pl acement; [place] [address] Anemia due to blood loss, ac [place] [phone] Social History Tobacco Use Types Packs/Day Years [...] [address] [place] [address] (Wo rk) 05/15/2022 Surgery Surgery Neo Torres MD BLEPHAROPLASTY BILATERAL [place] [facility], INTERNAL & SURGEONS [place] PTOSIS REPAIR BILATERAL [address] [place] [address] (Wo rk) 06/25/2022 Ancillary Procedure Cardiology Kirk Silver MD [address] [place] [address] (Wo rk) Scheduled Procedures Name Priority Associated Diagnoses Date/Time REPAIR, PTOSIS, BILATERAL, Dermatochalas is 05/15/2022 7:30 AM CDT WITH BILATERAL BLEPHAROPLASTY 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 artery of [place] heart without angina pectoris S/P coronary artery stent placement Anemia due to blood loss, acute IRON AND IRON BINDING Routine 01/02/2021 3:27 PM Dyspnea on exertion Results for this CAPACITY CDT Coronary artery procedure ar e in disease involving the result s [place] coronary section. artery of [place] heart without angina pectoris S/P coronary artery stent placement Anemia due to blood loss, acute FERRITIN Routine 01/02/2021 3:27 PM Dyspnea on ex ertion Results for this CDT Coronary artery procedure ar e in disease involving the result s [place] coronary section. artery of [place] heart without angina pectoris S/P coronary artery stent placement Anemia due to blood loss, acute COMPREHENSIVE Routine 01/02/2021 3:27 PM Coronary artery Resul ts for this METABOLIC PANEL CDT disease involving procedu re are in [place] coronary the results artery of [place] section. heart without angina pectoris Chronic renal insufficiency, stage 3 (moderate) CBC WITH PLATELETS Routine 01/02/2021 3:27 PM Dyspnea on exertion Results for this CDT Coronary artery procedure ar e in disease involving the result s [place] coronary section. artery of [place] heart without angina pectoris S/P coronary artery stent placement Anemia due to blood loss, acute documented in this encounter Results (ABNORMAL) CBC with platelets (01/02/2021 3:27 PM CDT) Analysis Performed At Patho logist Time Signature WBC 8.8 4.0 - 11.0 01/02/2021 [facility] 10e9/L 4:05 PM [facility] RBC Count 3.93 (L) 4.4 - 5.9 01/02/2021 [facility] 10e12/L 4:05 PM [facility] Hemoglobin 11.3 (L) 13.3 - 01/02/2021 [facility] 17.7 g/dL 4:05 PM [facility] Hematocrit 34.5 (L) 40.0 - 01/02/2021 [facility] 53.0 % 4:05 PM [facility] MCV 88 78 - 100 01/02/2021 [facility] fl 4:05 PM [facility] MCH 28.8 26.5 - 01/02/2021 [facility] 33.0 pg 4:05 PM [facility] MCHC 32.8 31.5 - 01/02/2021 [facility] 36.5 g/dL 4:05 PM [facility] RDW 12.9 10.0 - 01/02/2021 [facility] 15.0 % 4:05 PM [facility] Platelet Count 202 150 - 450 01/02/2021 [facility] 10e9/L 4:05 PM [facility] Specimen Anatomical Collection Method Collection Time Receive d Time (Source) Location / / Volume Laterality Blood 01/02/2021 3:27 PM 3:30 CDT PM CDT Fidencio Solis MD LAB - BLOOD ORDERABLES Performing Organization Address City/Va Hospital/ZIP Code Phon e Number [facility] [address] [place], [place] [address] [facility] [address] [place], [place] [address], [facility] [phone] Iron and iron binding capacity (01/02/2021 3:27 PM CDT) P athologist Signature Iron 87 35 - 180 01/02/2021 [facility] ug/dL 4:57 PM [facility] Iron Binding 288 240 - 430 01/02/2021 [place] Cap ug/dL 4:57 PM [facility] Iron Saturation 30 15 - 46 % 01/02/2021 [facility] Index 4:57 PM T [facility] Specimen Anatomical Collection Method Collection Time Receive d Time (Source) Location / / Volume Laterality Blood 01/02/2021 3:27 PM 1 3:30 CDT PM CDT Fidencio Solis MD LAB - BLOOD ORDERABLES Performing Organization Address [facility]/Va Hospital/ZIP Code Phon e Number [facility] [address], [place] [address] [facility] [address] [place], [place] [address], [facility] [phone] Ferritin (01/02/2021 3:27 PM CDT) P athologist Signature Ferritin 148 26 - 388 01/02/2021 [facility] ng/mL 5:01 PM T [facility] Specimen Anatomical Collection Method Collection Time Receive d Time (Source) Location / / Volume Laterality Blood 01/02/2021 3:27 PM 1 3:30 CDT PM CDT Fidencio Solis MD LAB - BLOOD ORDERABLES Performing Organization Address City/Va Hospital/ZIP Code Phon e Number [facility] [address], [place] [address] [facility] [address] [place], [place] [address] [phone] Transferrin (01/02/2021 3:27 PM CDT) P athologist Signature Transferrin 244 210 - 360 01/02/2021 [facility] mg/dL 9:33 PM CDT [facility] Specimen Anatomical Collection Method Collection Time Receive d Time (Source) Location / / Volume Laterality Blood 01/02/2021 3:27 PM 3:30 CDT PM CDT Fidencio Solis MD LAB - BLOOD ORDERABLES Performing Organization Address City/State/ZIP Code Phon e Number [facility] [address] [place] [address] [facility] (ABNORMAL) Comprehensive metabolic panel (01/02/2021 3:27 PM CDT) Analysis Performed At Patho logist Time Signature Sodium 142 133 - 144 01/02/2021 [facility] mmol/L 4:20 PM [facility] Potassium 4.8 3.4 - 5.3 01/02/2021 [facility] mmol/L 4:20 PM [facility] Chloride 112 (H) 94 - 109 01/02/2021 [facility] mmol/L 4:20 PM [facility] Carbon Dioxide 26 20 - 32 01/02/2021 [facility] mmol/L 4:27 PM [facility] Anion Gap 4 3 - 14 01/02/2021 [facility] mmol/L 4:27 PM [facility] Glucose 115 (H) 70 - 99 01/02/2021 [facility] mg/dL 4:27 PM [facility] Urea Nitrogen 40 (H) 7 - 30 01/02/2021 [facility] mg/dL 4:27 PM [facility] Creatinine 1.56 (H) 0.66 - 01/02/2021 [facility] 1.25 mg/dL 4:27 PM [facility] GFR Estimate 44 (L) >60 01/02/2021 [facility] mL/min/{1. 4:27 PM [facility] 73_m2} [facility]OSP[facility] Comment: Non GFR Calc Starting 07/27/2018, serum creatinine ba sed estimated GFR (eGFR) will be calculated using the Chronic Kidney Dise [facility] Epidemiology Collaboration (CKD-EPI) equation. GFR Estimate If 51 (L) >60 mL/min/{1.73_m2} 01/02/2021 4: [address] [facility] Comment: GFR Calc Starting 07/27/2018, serum creatinine ba sed estimated GFR (eGFR) will be calculated using the Chronic Kidney Dise [facility] Epidemiology Collaboration (CKD-EPI) equation. Calcium 8.6 8.5 - 10.1 mg/dL 01/02/2021 4:27 PM [facility] Bilirubin Total 0.3 0.2 - 1.3 mg/dL 01/02/2021 4:28 PM [facility] Albumin 3.5 3.4 - 5.0 g/dL 01/02/2021 4:28 PM [facility] Protein Total 6.9 6.8 - 8.8 g/dL 01/02/2021 4:28 PM [facility] Alkaline Phosphatase 53 40 - 150 U/L 01/02/2021 4:28 PM [facility] ALT 23 0 - 70 U/L 01/02/2021 4:[address] [facility] AST 16 0 - 45 U/L 01/02/2021 4:[address] [facility] Specimen Anatomical Collection Method Collection Time Receive d Time (Source) Location / / Volume Laterality Blood 01/02/2021 3:27 PM 3:30 CDT PM T Fidencio Solis MD LAB - BLOOD ORDERABLES Performing Organization Address City/State/ZIP Code Phon e Number M [facility] [address] [address] [facility] [address] [place], [place] [address], [facility] [phone] [place] [address] [place] [address], [facility] documented in this encounter Visit Diagnoses Diagnosis Coronary artery disease involving [place] coronary artery of [place] heart without angina pectoris Chronic renal insufficiency, stage 3 (mo derate) (H) Dyspnea on exertion Other dyspnea and respiratory abnormalit y S/P coronary artery stent placement Postsurgical percutaneous transluminal c oronary angioplasty status Anemia due to blood loss, acute Acute posthemorrhagic anemia 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 documented in this encounter Care Teams Needle Board Repairer Relationship Specialty Start Date End Date Anatoliy Jackson PCP - General 05/14/12 Heath More PCP - Internal Medicine INTERNAL MEDICINE - 01/06/14 MD Andreas ENDOCRINOLOGY, [facility]IC DIABETES & METABOLISM [facility] [address] [place] [address] Peter Gipson PCP - Urology 04/02/15 MD Jordan [facility] [address] [place] [address] [address] [place], [place] [id number] Peter Mcmullen Assigned Musculoskeletal 06/01/20 MD Mahendra Provider [facility] [facility] [address] [place], [place] [phone] Fidencio Solis MD Assigned Heart and 12/16/20 02/21/21 [address], Vascular Provider [address] [place] [id number] documented as of this encounter
--- OUTSIDE RECORDS SUMMARY | 2022-05-02 12:34 | XMS_ITS | Encounter Summary ---
:1950 Author Organization [place] Address [address] [facility] [place] [address] Care Team Providers Name Role Phone Anatoliy [...] card) [address], [address] [facility] [address] [place] [address] [place] [address] Referral ID Status Reason Start Date Expiration Date Visits Requ ested Visits Authorized [id number] Closed 12/14/2020 12/14/2021 1 1 Encounter Details Date Type Department Care Team Description 12/24/2020 Hospital Encounter M [facility] Fidencio Solis MD [facility] [address], [address] [place] [address] [place] [address] [place] [phone] Social History Tobacco Use Types Packs/Day Years [...] Coronary artery disease daily (with meals) involving [place] coronary artery of [place] heart without angina pectoris cloNIDine (CATAPRES) Take [...] artery disease (If pain is not involving [place] relieved 5 minutes coronary artery of after 1st dose call [place] heart without 911) angina pectoris rosuvastatin (CRESTOR) Take 1 tablet (40 mg) 90 tablet 3 01/03/2021 40 MG by mouth every tabletIndications: evening Coronary artery disease involving [place] coronary artery of [place] heart without angina pectoris, Hyperlipidemia LDL goal [...] [address] [place] [address] (Wo rk) 05/15/2022 Surgery Surgery Neo Torres MD BLEPHAROPLASTY BILATERAL [place] [facility] UPP[facility] L IDS, INTERNAL & SURGEONS PA PTOSIS REPAIR BILATERAL [address] [place] [address] (Wo rk) 06/25/2022 Ancillary Procedure Cardiology Kirk Silver MD [address] [place] [address] (Wo rk) Scheduled Procedures Name Priority Associated [...] (12/24/2020 2:50 PM CDT) [facility] Time Signature Target HR 149 RADIANT [...] on filedocumented in this encounter Care Teams Mediation Commissioner Relationship Specialty Start Date End Date Anatoliy Jackson PCP - General 05/14/12 Heath More PCP - Internal Medicine INTERNAL MEDICINE - 01/06/14 MD Andreas ENDOCRINOLOGY, ENDOCRINE CLINIC DIABETES & METABOLISM [facility] [address] [facility] [address] [facility] [address] [place] [address] Peter Gipson PCP - Urology 04/02/15 MD Jordan [facility] [address] [facility] [address] [place] [address] Peter Mcmullen Assigned Musculoskeletal 06/01/20 MD Mahendra Provider [facility] [place] [address] Fidencio Solis MD Assigned Heart and 12/16/20 02/21/21 [address], Vascular Provider [address] [place], [place] [address] documented as of this encounter
--- OUTSIDE RECORDS SUMMARY | 2022-05-02 12:35 | XMS_ITS | Encounter Summary ---
:1950 Author Organization [place] Address [address] [facility] [place] [address] Care Team Providers Name Role Phone Anatoliy Jackson MD Primary Care Provider Heath More MD Unavailable Peter Gipson MD Unavailable Peter Aguiar MD Unavailable Peter Mcmullen MD Unavailable Reason for Visit Diagnostic Imaging XR (Routine) - Closed Specialty Diagnoses / Procedures Referred By Contact Refer red To Contact Diagnoses Left hip pain Peter Mcmullen MD Procedures XR Pelvis and Hip Bilateral 2 Views XR Pelvis w Hip LT 1 [address] [place], [place] [address] Referral ID Status Reason Start Date Expiration Date Visits Requ ested Visits Authorized [id number] Closed 10/22/2020 10/22/2021 1 1 Encounter Details Date Type Department Care Team Description 10/23/2020 Ancillary Procedure [facility] Peter Ramirez eft hip pain Orthopedic Xrlovely Mccray MD [place] [address] [place] [phone] Social History Tobacco Use Types Packs/Day [...] been in contact with No / Unsure 10/23/2020 12:48 PM CDT someone who was confirmed or 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 documented as of this encounter Plan of Treatment Upcoming Encounters Date Type Specialty Care Team Description 05/15/2022 Hospital Encounter Surgery Singh Torres MD [facility] [address] [place] [id number] (Wo rk) 05/15/2022 Surgery Surgery Neo Torres MD BLEPHAROPLASTY BILATERAL [facility] PTOSIS REPAIR BILATERAL [address] [place] [address] (Wo rk) 06/25/2022 Ancillary Procedure Cardiology Kirk Silver MD [address] [place] [id number] (Wo rk) Scheduled Procedures Name Priority Associated [...] Priority Date/Time Associated Diagnosis Comme nts XR PELVIS AND HIP Routine 10/23/2020 1:04 PM Left hip pain Res ults for this BILATERAL 2 VIEWS CDT procedure are in the results section. documented in this encounter Results XR Pelvis and Hip Bilateral 2 Views (10/23/2020 1:04 PM CDT) Anatomical Region Laterality Modality Hip, Abdomen/Pelvis Bilateral Computed Radiography Specimen (Source) Anatomical Location Collection Method / Collectio n Time Received Time / Laterality Volume Impressions 10/23/2020 1:24 PM CDT IMPRESSION: Mild osteoarthrosis at both hip joints. RUBINA KING MD Narrative 10/23/2020 1:24 PM CDT Exam: AP and frog leg lateral view of each hip dated 10/23/2020. COMPARISON: 10/06/2019. CLINICAL HISTORY: Pain. FINDINGS: AP and frog-leg lateral view o f each hip was obtained. Vascular calcifications are noted. Spurr ing at the femoral head neck junction with mild joint space narrowing of both hip joints. Question os acetabuli at the right hip. Procedure Note Rubina Knig MD - 10/23/2020Form atting of this note might be different from the original. Exam: AP and frog leg lateral view of ea ch hip dated 10/23/2020. COMPARISON: 10/06/2019. CLINICAL HISTORY: Pain. FINDINGS: AP and frog-leg lateral view o f each hip was obtained. Vascular calcifications are noted. Spurr ing at the femoral head neck junction with mild joint space narrowing of both hip joints. Question os acetabuli at the right hip. IMPRESSION: Mild osteoarthrosis at both hip joints. 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 documented in this encounter Care Teams Surgical Supplies Sterilizer Relationship Specialty Start Date End Date Anatoliy Jackson PCP - General 05/14/12 Heath More PCP - Internal Medicine INTERNAL MEDICINE - 01/06/14 MD [facility] [address] [place] [phone] Peter Gipson PCP - Urology 04/02/15 MD [facility] [address] [address] Peter Aguiar Assigned Heart and 06/01/20 12/15/20 MD [facility] Provider [address] [place], [place] [phone] Peter Mcmullen Assigned Musculoskeletal 06/01/20 MD Mahendra Provider [address] [place], [place] [phone] documented as of this encounter
--- OUTSIDE RECORDS SUMMARY | 2022-05-02 12:35 | XMS_ITS | Encounter Summary ---
:1950 Author Organization [place] Address [address] [facility] [place] [address] Care Team Providers Name Role Phone Anatoliy Jackson MD Primary Care Provider Heath More MD Unavailable Peter Gipson MD Unavailable Peter Aguiar MD Unavailable Peter Mcmullen MD Unavailable Encounter Details Date Type Department Care Team Description 11/02/2020 Telephone [facility] Ricky Harmon plate slitter and inspector Radio logy [address] [place] [address] Social History Tobacco Use [...] [address] [place] [phone] (Wo rk) 05/15/2022 Surgery Surgery Neo Torres MD BLEPHAROPLASTY BILATERAL [facility] PTOSIS REPAIR BILATERAL [address] [place] [phone] (Wo rk) 06/25/2022 Ancillary Procedure Cardiology Kirk Silver MD [address] [place] [phone] (Wo rk) Scheduled Procedures Name Priority Associated [...] on filedocumented in this encounter Care Teams Advertising Intern Relationship Specialty Start Date End Date Anatoliy Jackson PCP - General 05/14/12 Heath More PCP - Internal Medicine INTERNAL MEDICINE - 01/06/14 MD Andreas [facility] DIAB[facility]ES [facility] METAB[facility] [address] [place] [phone] Peter Gipson PCP - Urology 04/02/[address] [facility] [address] [place] [address] Peter Aguiar Assigned Heart and 06/01/20 12/15/20 MD [facility] Provider [address] [place], [place] [address] Peter Mcmullen Assigned Musculoskeletal 06/01/20 MD Mahendra Provider [address] [place] [address] documented as of this encounter
--- OUTSIDE RECORDS SUMMARY | 2022-05-02 12:35 | XMS_ITS | Encounter Summary ---
:1950 Author Organization [place] Address [address] [facility] [place] [address] Care Team Providers Name Role Phone Anatoliy Jackson MD Primary Care Provider Heath More MD Unavailable Peter Gipson MD Unavailable Peter Aguiar MD Unavailable Peter Mcmullen MD Unavailable Reason for Referral Diagnostic Imaging XR (Routine) - Closed Specialty Diagnoses / Procedures Referred By Contact Refer red To Contact Radiology. Diagnoses Lumbar disc herniation with radiculopathy Peter Mcmullen, Xray Rscc Procedures XR Lumbar Epidural Injection Incl Imaging [address] [place] [id number] [place], [place] [address] [place] [address] Phone: Fax: Referral ID Status Reason Start Date Expiration Date Visits Requ ested Visits Authorized [id number] Closed 10/23/2020 10/23/2021 1 1 Reason for Visit Reason Comments RECHECK both of hips, MRI of prostat e. bursitis of hips Encounter Details Date Type Department Care Team Description 10/23/2020 Office Visit [facility] Peter Mcmullen Lumbar d isc herniation with radiculopathy (Primary Dx); Sports Medicine MD [facility] [address] [place] [phone] Social History Tobacco Use Types Packs/Day Years [...] been in contact with No / Unsure 11/07/2020 11:39 AM CDT someone who was confirmed or 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 documented as of this encounter Last Filed Vital Signs Vital Sign Reading Time Taken Comments Blood Pressure - - Pulse - - Temperature - - Respiratory Rate 16 10/23/2020 1:23 PM CDT Oxygen Saturation - - Inhaled Oxygen Concentration - - Weight 102.1 kg (225 lb) 10/23/2020 1:23 PM CDT Height 180.3 cm (5' 11) 10/23/2020 1:23 PM CDT Body Mass Index 31.38 10/23/2020 1:23 PM CDT documented in this encounter Progress Notes Peter Mcmullen MD - 10/23/2020 3:40 PM CDT HISTORY OF PRESENT ILLNESS Mr. Anderson is a pleasant 69 year old year old male who presents to clinic today with low back and hip pains Nikita explains that he continues to have pains into his feet Location: low back and hip Quality: achy pain Severity: 6/10 at worst Duration: years, worse over past 6 months Timing: occurs intermittently Context: occurs while exercising and lifting Modifying factors: resting and non-use makes it better, movement and use makes it worse Associated signs & symptoms: low back and hip pain MEDICAL HISTORY Patient Active Problem List Diagnosis ??? Type 2 diabetes mellitus with circulatory disorder (H) ? ? Hyperlipidemia LDL goal <70 ??? Essential hypertension ??? Peripheral vascular disease (H) ??? Coronary artery disease involving [place]ark[place] coronary artery of clark[place] point heart without angina pectoris ??? Angina pectoris (H) ??? S/P coronary artery stent placement ??? Chronic renal insufficiency, stage 3 (moderate) ??? 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 Claudication of both lower extremities (H) Current Outpatient Medications Medication Sig Dispense Refill ??? amLODIPine (NORVASC) 5 MG tablet Take 1 tablet (5 mg) by mouth daily 90 tablet 2 ??? aspirin 325 MG tablet Take 81 mg by mouth daily ??? carvedilol (COREG) 12.5 MG tablet Take 1 tablet (12.5 mg) by mouth 2 times daily (with meals) 180 tablet 3 ??? cloNIDine (CATAPRES) 0.1 MG tablet Take 0.1 mg by mouth 2 times daily ??? gabapentin (NEURONTIN) 100 MG capsule TAKE 1 CAPSULE(100 MG) BY MOUTH THREE TIMES DAILY 90 capsule 1 ??? glucosamine-chondroitin 500-400 MG CAPS per capsule Take 1 capsule by mouth daily ??? Insulin Lispro (HUMALOG SC) ??? INSULIN LISPRO (HUMAN) 100 UNIT/ML SC SOLN As directed One month 0 ??? LANTUS 100 UNIT/ML SC SOLN as directed 100 0 ??? lisinopril-hydrochlorothiazide (ZESTORETIC) 20-12.5 MG tablet Take 1 tablet by mouth daily 90 tablet 3 ??? nitroGLYcerin (NITROSTAT) 0.[address] 1 tablet (0.4 mg) under the tongue every 5 minutes as needed for chest pain (If pain is not relieved 5 minutes after 1st dose call 911) 25 tablet 3 ??? ONE TOUCH ULTRA TEST STRP as directed 100 prn ??? rosuvastatin (CRESTOR) 40 MG tablet Take 1 tablet (40 mg) by mouth every evening 90 tablet 3 ??? sertraline (ZOLOFT) 50 MG tablet Take 50 mg by mouth daily ??? SYRINGE B-D MICRO FINE 1/2 CC SYRINGES as directed 100 prn ??? terbinafine (LAMISIL) 250 MG tablet Take 1 tablet by mouth daily ??? traMADol (ULTRAM) 50 MG tablet Take 1 tablet (50 mg) by mouth nightly as needed for severe pain 10 tablet 0 ??? traZODone (DESYREL) 50 MG tablet Take 50 mg by mouth At Bedtime ??? Turmeric 500 MG CAPS ??? finasteride (PROSCAR) 5 MG tablet Take 5 mg by mouth ??? gabapentin (NEURONTIN) 300 MG capsule TK ONE C PO TID ??? GABAPENTIN PO Take 300 mg by mouth as needed Allergies Allergen Reactions ??? Atorvastatin Other (See Comments) Congestion ??? Epinephrine Palpitations Family History Problem Relation Age of Onset ??? Hypertension Mother ??? Diabetes Maternal Grandmother ??? Hypertension Maternal Grandmother ??? Hypertension Maternal Grandfather Social History Socioeconomic History ??? Marital status: Spouse name: None ??? Number of children: None ??? Years of education: None ??? Highest education level: None Occupational History ??? None Social Needs ??? Financial resource strain: None ??? Food insecurity Worry: None Inability: None ??? Transportation needs Medical: None Non-medical: None Tobacco Use ??? Smoking status: Never Smoker ??? Smokeless tobacco: Never Used Substance and Sexual Activity ??? Alcohol use: Yes Alcohol/week: 0.0 standard drinks Comment: beer and wine, every couple days ??? Drug use: No ??? Sexual activity: None Lifestyle ??? Physical activity Days per week: None Minutes per session: None ??? Stress: None Relationships ??? Social connections Talks on phone: None Gets together: None Attends muslim service: None Active member of club or organization: None Attends meetings of clubs or organizations: None Relationship status: None ??? Intimate partner violence Fear of current or ex partner: None Emotionally abused: None Physically abused: None Forced sexual activity: None Other Topics Concern ??? Parent/sibling w/ CABG, AL or angioplasty before 65F 55M? Not Asked ??? Service Not Asked ??? Blood Transfusions Not Asked ??? Caffeine Concern No Comment: 2 cups daily ??? Occupational Exposure Not Asked ??? Hobby Hazards Not Asked ??? Sleep Concern No ??? Stress Concern Not Asked ??? Weight Concern No ??? Special Diet Yes Comment: counts carbs, diabetic diet ??? Back Care Not Asked ??? Exercise Yes Comment: not much ??? Bike Helmet Not Asked ??? Seat Belt Not Asked ??? Self-Exams Not Asked Social History Narrative ??? None Additional medical/Social/Surgical histories [facility] in [facility] and updated as appropriate. REVIEW OF SYSTEMS (10/23/2020) 10 point ROS of systems including Constitutional, Eyes, Respiratory, Cardiovascular, Gastroenterology, Genitourinary, Integumentary, Musculoskeletal, Psychiatric, Allergic/Immunologic were all negativeexcept for pertinent positives noted in my HPI. PHYSICAL EXAM Vitals: 10/23/20 1323 Resp: 16 Weight: 102.1 kg (225 lb) Height: 1.803 m (5' 11) Vital Signs: Resp 16 Ht 1.803 m (5' 11) Wt 102.1 kg (225 lb) BMI 31.38 kg/m?? Patient declined being weighed. Body mass index is 31.38 kg/m??. General - normal appearance, in no obvious distress HEENT - conjunctivae not injected, moist mucous membranes, normocephalic/atraumatic head, ears normal appearance, no lesions, mouth normal appearance, no scars, normal dentition and teeth present CV - normal peripheral perfusion Pulm - normal respiratory pattern, non-labored Musculoskeletal - lumbar spine - stance: normal gait without limp, no obvious leg length discrepancy, normal heel and toe walk - inspection: normal bone and joint alignment, no obvious scoliosis - palpation: no paravertebral or bony tenderness - ROM: flexion exacerbates pain, normal extension, sidebending, rotation - strength: lower extremities 5/5 in all planes - special tests: (+) straight leg raise (+) slump test Neuro - patellar and Achilles DTRs 2+ bilaterally, some lower extremity sensory deficit throughout L5 distribution, grossly normal coordination, normal muscle tone Skin - no ecchymosis, erythema, warmth, or induration, no obvious rash Psych - interactive, appropriate, normal mood and affect Hips: has some ttp over bursa, no pain with internal rotation ASSESSMENT & PLAN 70 yo male with lumbar ddd, radicular pain Reviewed lumbar MRI: shows ddd Ordered ERASTO Reviewed xrays hips : WNL Cont. Gabapentin Given HEP F/u after ERASTO Appropriate PPE was utilized for prevention of spread of Covid-19. Peter Mcmullen MD, CAQSM documented in this encounter Nursing Notes Ivanna Marie - 10/23/2020 3:40 PM CDT Reason For Visit: Chief Complaint Patient presents with ??? RECHECK both of hips, MRI of prostate. bursitis of hips Resp 16 Ht 1.803 m (5' 11) Wt 102.1 kg (225 lb) BMI 31.38 kg/m?? Pain Assessment Patient Currently in Pain: Denies(left hip pain, certain times) Primary Pain Location: Hip Pain Descriptors: Intermittent Aggravating Factors: Walking Ivanna Marie ATC documented in this encounter Plan of Treatment Upcoming Encounters Date Type Specialty Care Team Description 05/15/2022 Hospital Encounter Surgery Singh Torres MD [facility] [address] [place] [address] (Wo rk) 05/15/2022 Surgery Surgery Neo Torres MD BLEPHAROPLASTY BILATERAL [facility] PTOSIS REPAIR BILATERAL [address] [place] [address] (Wo rk) 06/25/2022 Ancillary Procedure Cardiology Kirk Silver MD [address] [place] [id number] (Wo rk) Scheduled Procedures Name Priority Associated Diagnoses Date/Time REPAIR, PTOSIS, BILATERAL, Dermatochalas is 05/15/2022 7:30 AM CDT WITH BILATERAL BLEPHAROPLASTY 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 ??Long-term results are pending. MANGO BANKS PA-C Narrative 11/07/2020 3:56 PM CDT XR LUMBAR EPIDURAL INJECTION INCL IMAGING ?11/07/2020 12:30 PM ?? History: ??L5-S1 degenerative disc disea se. Request for a right paracentral L5-S1 interlaminar epidural steroid injection. PROCEDURE: ??The procedure, indications, risks (including the risk of infection, bleeding and reaction to cont rast material and medications), and alternatives to therap y were discussed with the patient and informed consent was obtaine d for the procedure. ??The lower back was prepped and draped in the usual fashion. ??Lidocaine 1% was used for local anesthesia. ??Using f luoroscopic guidance, a Hatton needle was advanced into the epidural sp esme via interlaminar approach at the L5-S1 level. ??1.0 mL of Isovue M 2 100 contrast was injected confirming epidural location of the need le. ??Subsequently, a mixture of 3 mL Celestone and 3 mL Lidocaine 1% was injected. ??The needle was removed. ??Estimated blood loss during t he procedure was less than 5 mL. No specimens collected. The patient tolerated the procedure well and there were no immediate complication s. ? Fluoro time: 29.4 seconds Images Obtained: 5 Patient's pain levels (0-10 scale) are a s follows: ?? PRE INJECTION ?? Low back ? 0 ?? Right leg ?0 Left leg ? 0 ?? POST INJECTION Low back ? 0 ?? Right leg ?0 ?? Left leg ? 0 ?? Procedure Note Mango Banks PA-C - 11/07/2020F ormatting of this note might be different from the original. XR LUMBAR EPIDURAL INJECTION INCL IMAGIN G 11/07/2020 12:30 PM History: L5-S1 degenerative disc disease . Request for a right paracentral L5-S1 interlaminar epidural steroid injection. PROCEDURE: The procedure, indications, r isks (including the risk of infection, bleeding and reaction to cont rast material and medications), and alternatives to therap y were discussed with the patient and informed consent was obtaine d for the procedure. The lower back was prepped and draped in the usual fashion. Lidocaine 1% was used for local anesthesia. Using flu oroscopic guidance, a Hatton needle was advanced into the epidural sp esme via interlaminar approach at the L5-S1 level. 1.0 mL of Isovue M2 100 contrast was injected confirming epidural location of the need le. Subsequently, a mixture of 3 mL Celestone and 3 mL Lidocaine 1% was injected. The needle was removed. Estimated blood loss during the procedure was less than 5 mL. No specimens collected. The patient tolerated the procedure well and there were no immediate complication s. Fluoro time: 29.4 seconds Images Obtained: 5 Patient's pain levels (0-10 scale) are a s follows: PRE INJECTION Low back 0 Right leg 0 Left leg 0 POST INJECTION Low back 0 Right leg 0 Left leg 0 IMPRESSION: Technically successful lumba r translaminar epidural steroid injection at L5-S1. Long-term re sults are pending. 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 documented in this encounter Care Teams Supervisor Carding Relationship Specialty Start Date End Date Anatoliy Jackson, PCP - General 05/14/12 Heath More PCP - Internal Medicine INTERNAL MEDICINE - 01/06/14 MD Andreas ENDOCRINOLOGY, [facility] [address] [place] [phone] Peter Gipson PCP - Urology 04/02/15 MD [facility] [address] [facility] [address] [place], [place] [id number] Peter Aguiar Assigned Heart and 06/01/20 12/15/20 MD [facility]an [facility] Provider [address] [place], [place] [address] Peter Mcmullen Assigned Musculoskeletal 06/01/20 MD Mahendra Provider [address] [place], [place] [phone] documented as of this encounter
--- OUTSIDE RECORDS SUMMARY | 2022-05-02 12:35 | XMS_ITS | Encounter Summary ---
:1950 Author Organization [place] Address [address] [facility] [place] [address] Care Team Providers Name Role Phone Anatoliy Jackson MD Primary Care Provider Heath More MD Unavailable Peter Gipson MD Unavailable Peter Aguiar MD Unavailable Peter Mcmullen MD Unavailable Encounter Details Date Type Department Care Team Description 11/04/2020 Orders Only [facility] for screening [facility] for other viral diseases Laboratory [address] [phone] Social History Tobacco Use Types Packs/Day Years [...] been in contact with No / Unsure 11/04/2020 11:06 AM CDT someone who was confirmed or 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 documented as of this encounter Plan of Treatment Upcoming Encounters Date Type Specialty Care Team Description 05/15/2022 Hospital Encounter Surgery Singh Torres MD [facility] [address] [place] [address] (Wo rk) 05/15/2022 Surgery Surgery Neo Torres MD BLEPHAROPLASTY BILATERAL [place] [facility], INTERNAL & SURGE[facility] PTOSIS REPAIR BILATERAL [address] [place] [address] (Wo rk) 06/25/2022 Ancillary Procedure Cardiology Kirk Silver MD [address] [place], [place] [phone] (Wo rk) Scheduled Procedures Name Priority Associated [...] Name Priority Date/Time Associated Diagnosis Comme nts SARS-COV-2 Routine 11/04/2020 11:20 AM Encounter for Results for this (COVID-19) VIRUS CDT screening for other proc edure are in RT-PCR viral diseases the results section. COVID-19 VIRUS Routine 11/04/2020 11:20 AM Encounter for Resul ts for this (CORONAVIRUS) BY CDT screening for other proc edure are in PCR viral diseases the results section. documented in this encounter Results SARS-CoV-2 COVID-19 Virus (Coronavirus) by PCR (11/04/2020 11:20 AM CDT) [facility] Method Time Signature SARS-CoV-2 Nasopharyngeal 2020 INFECTIOUS Virus 4:11 PM CDT DISEASES Specimen DIAGNOSTIC Source LABORATORY, [facility] SARS-CoV-2 NEGATIVE 2020 INFECTIOUS PCR Result 4:11 PM CDT DISEASES DIAGNOSTIC LABORATORY, [facility] Comment: SARS-CoV2 (COVID-19) RNA not de tected, presumed negative. SARS-CoV-2 PCR Testing was performed using the Simplexa COVID-19 Direct Assay on the DiaVidderrin Liaison MDX 2020 4:11 PM INFECTIOUS DISEASES Comment instrument. Additional info rmation about this Emergency Use Authorization (EUA) assay can CDT DIAGNOSTIC be found via the Lab Guide. L ABORATORY, [facility] Comment: This test should be ordered for the dete ction of SARS-CoV-2 in individuals who meet SARS-CoV-2 clinical and/or epidemi ological criteria. Test performance is unknown in asymptomatic patients. This test is for in vitro diagnostic use under the FDA EUA for laboratories certified under CLIA to perform high com plexity testing. This test has not been FDA cleared or approved. A negative result does not rule out the presence of PCR inhibitors in the specimen or target RNA in concentration below the limit of detection for the assay. The possibility of a false negati ve should be considered if the patient's recent exposure or clinical pr esentation suggests COVID-19. This test was validated by the [facility] Infectious Diseases Diagnostic Laboratory. This laboratory i s certified under the Clinical Laboratory Improvement Amendments of 198 8 (CLIA-88) as qualified to perform high complexity laboratory testing. Specimen (Source) Anatomical Collection Method Collection Time Re ceived Time Location / / Volume Laterality Specimen from 11/04/2020 11:20 11/04/2020 nasopharyngeal AM CDT 12:01 PM CDT structure (specimen) Peter Mcmullen MD LAB - MICRO GENERAL ORDERABL ES Performing Organization Address City/State/ZIP Code Phon e Number INFECTIOUS DISEASES DIAGNOSTIC [address] [facility] [place] [address] LABORATORY, [facility] Asymptomatic COVID-19 Virus (Coronavirus) by PCR (11/04/2020 11:20 AM CDT) Component Value Ref Test Analysis Performed At [facility] Range Method Time Signature COVID-19 Nasopharyngeal 11/04/2020 [place] Virus PCR to 12:02 PM [facility]ICS [facility] [place] - CDT [place] Source [place] COVID-19 Test received-See 11/04/2020 INFECTIOUS Virus PCR to reflex to IDDL 4:11 PM CDT DISEASES [facility] [place] - test SARS CoV2 DIAGNOSTIC Result (COVID-19) Virus LABORATORY, RT-PCR [facility] Specimen (Source) Anatomical Collection Method Collection Time Re ceived Time Location / / Volume Laterality Specimen from 11/04/2020 11:20 11/04/2020 nasopharyngeal AM CDT 12:01 PM CDT structure (specimen) Peter Mcmullen MD LAB - MICRO GENERAL ORDERABL ES Performing Organization Address City/State/ZIP Code Phon e Number INFECTIOUS DISEASES DIAGNOSTIC [address] [place] [address] LABORATORY, [facility] [address] [place], [place] [address] [place] documented in this encounter Visit Diagnoses Diagnosis Encounter for screening for other viral diseases 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 documented in this encounter Care Teams Home Sales Consultant Relationship Specialty Start Date End Date Anatoliy Jackson, PCP - General 05/14/12 Heath More PCP - Internal Medicine INTERNAL MEDICINE - 01/06/14 MD Andreas ENDOCRINOLOGY, ENDO[facility]INE [facility]INIC DIABETES & METABOLISM OF [facility] [address] [place] [phone] Peter Gipson PCP - Urology 04/02/15 MD Jordan [facility] [address] [facility] [address] [place], [place] [phone] Peter Aguiar Assigned Heart and 06/01/20 12/15/20 MD Ishan Vascular Provider [address] [place] [phone] Peter Mcmullen Assigned Musculoskeletal 06/01/20 MD Mahendra Provider [address] [place], [place] [address] documented as of this encounter
--- OUTSIDE RECORDS SUMMARY | 2022-05-02 12:35 | XMS_ITS | Encounter Summary ---
:1950 Author Organization [place] Address [address] [facility] [place] [address] Care Team Providers Name Role Phone Anatoliy Jackson MD Primary Care Provider Heath More MD Unavailable Peter Gipson MD Unavailable Peter Aguiar MD Unavailable Peter Mcmullen MD Unavailable Encounter Details Date Type Department Care Team Description 11/07/2020 Travel Social History Tobacco Use Types Packs/Day [...] [address] [place] [address] (Wo rk) 05/15/2022 Surgery Surgery Neo Torres MD BLEPHAROPLASTY BILATERAL [place] [facility], INTERNAL & SURGEONS [facility] PTOSIS REPAIR BILATERAL [address] [place] [address] (Wo rk) 06/25/2022 Ancillary Procedure Cardiology Kirk Silver MD [address] [place] [id number] (Wo rk) Scheduled Procedures Name Priority Associated [...] filedocumented in this encounter Care Teams Water Superintendent Relationship Specialty Start Date End Date Anatoliy Jackson, PCP - General 05/14/12 Heath More PCP - Internal Medicine INTERNAL MEDICINE - 01/06/14 MD Andreas ENDOCRINOLOGY, ENDOCRINE CLINIC DIABETES & METABOLISM [facility] [address] [place] [phone] Peter Gipson PCP - Urology 04/02/15 MD Jordan [facility] [address] [place] [address] Peter Aguiar Assigned Heart and 06/01/20 12/15/20 MD Ishan Vascular Provider [address] [place], [place] [address] Peter Mcmullen Assigned Musculoskeletal 06/01/20 MD Mahendra Provider [address] [facility] [address] [place], [place] [address] documented as of this encounter
--- OUTSIDE RECORDS SUMMARY | 2022-05-02 12:35 | XMS_ITS | Encounter Summary ---
:1950 Author Organization [place] Address [address] [facility] [place] [address] Care Team Providers Name Role Phone Anatoliy Jackson MD Primary Care Provider Heath More MD Unavailable Peter Gipson MD Unavailable Peter Aguiar MD Unavailable Peter Mcmullen MD Unavailable Encounter Details Date Type Department Care Team Description 11/04/2020 Travel Social History Tobacco Use Types Packs/Day [...] [address] [place] [address] (Wo rk) 05/15/2022 Surgery Surgery Neo Torres MD BLEPHAROPLASTY BILATERAL [place] [facility], INTERNAL & SURGEONS PA PTOSIS REPAIR BILATERAL [address] [place] [address] (Wo rk) 06/25/2022 Ancillary Procedure Cardiology Kirk Silver MD [address] [place] [phone] (Wo rk) Scheduled Procedures Name Priority Associated [...] on filedocumented in this encounter Care Teams Stage Hand Relationship Specialty Start Date End Date Anatoliy Jackson, PCP - General 05/14/12 Heath More PCP - Internal Medicine INTERNAL MEDICINE - 01/06/14 MD Andreas ENDOCRINOLOGY, ENDOCRINE CLINIC DIABETES & METABOLISM [facility] [address] [place] [phone] Peter Gipson PCP - Urology 04/02/15 MD Jordan [facility] [address] [place] [address] Peter Aguiar Assigned Heart and 06/01/20 12/15/20 MD Ishan Vascular Provider [address] [place], [place] [address] Peter Mcmullen Assigned Musculoskeletal 06/01/20 MD Mahendra Provider [address] [facility] [address] [place], [place] [address] documented as of this encounter
--- OUTSIDE RECORDS SUMMARY | 2022-05-02 12:35 | XMS_ITS | Encounter Summary ---
:1950 Author Organization [place] Address [address] [facility] [place] [address] Care Team Providers Name Role Phone Anatoliy Jackson MD Primary Care Provider Heath More MD Unavailable Peter Gipson MD Unavailable Peter Aguiar MD Unavailable Peter Mcmullen MD Unavailable Encounter Details Date Type Department Care Team Description 10/23/2020 Orders Only [facility] Peter Mcmullen for screening [facility] MD Mahendra for other viral [address] (Primary Dx) [address] [place] [phone] Social History Tobacco Use Types Packs/Day Years [...] [address] [place] [address] (Wo rk) 05/15/2022 Surgery Surgery Neo Torres MD BLEPHAROPLASTY BILATERAL [place] [facility]S, INTERNAL & SURGEONS PA PTOSIS REPAIR BILATERAL [address] [place] [address] (Wo rk) 06/25/2022 Ancillary Procedure Cardiology Kirk Silver MD [address] [place] [address] (Wo rk) Scheduled Procedures Name Priority Associated Diagnoses Date/Time REPAIR, PTOSIS, BILATERAL, Dermatochalas is 05/15/2022 7:30 AM CDT WITH BILATERAL BLEPHAROPLASTY 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 REPAIR, ECTROPION, EYE, Dermatochalasis 05/15/2022 7:30 AM CDT BILATERAL 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 documented as of this encounter Results Asymptomatic COVID-19 Virus (Coronavirus) by PCR (11/04/2020 11:20 AM CDT) Component Value Ref Test Analysis Performed At [facility] Method Time Signature COVID-19 Nasopharyngeal 11/04/2020 [place] Virus PCR to 12:02 PM [facility]ICS [facility] [place] - CDT [facility] COVID-19 Test received-See 11/04/2020 INFECTIOUS Virus PCR to reflex to IDDL 4:11 PM CDT DISEASES [facility] [place] - test SARS CoV2 DIAGNOSTIC Result (COVID-19) Virus LABORATORY, RT-PCR [facility] Specimen (Source) Anatomical Collection Method Collection Time Re ceived Time Location / / Volume Laterality Specimen from 11/04/2020 11:20 11/04/2020 nasopharyngeal AM CDT 12:01 PM CDT structure (specimen) Peter Mcmullen MD LAB - MICRO GENERAL ORDERABL ES Performing Organization Address City/State/ZIP Code Phon e Number INFECTIOUS DISEASES DIAGNOSTIC [address] [place] [address] LABORATORY, [facility] [address] [place], [place] [address] [place] documented in this encounter Visit Diagnoses Diagnosis Encounter for screening for other viral diseases - Primary 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 documented in this encounter Care Teams Music Critic Relationship Specialty Start Date End Date Anatoliy Jackson, PCP - General 05/14/12 Heath More PCP - Internal Medicine INTERNAL MEDICINE - 01/06/14 MD Andreas ENDOCRINOLOGY, ENDOCRINE CLINIC DIABETES & METABOLISM OF [facility] [address] [place] [phone] Peter Gipson PCP - Urology 04/02/15 MD Jordan [facility] [address] [facility] [address] [place] [address] Peter Aguiar Assigned Heart and 06/01/20 12/15/20 MD Ishan Vascular Provider [address] [place], [place] [address] Peter Mcmullen Assigned Musculoskeletal 06/01/20 MD Mahendra Provider [address] [place], [place] [address] documented as of this encounter
--- OUTSIDE RECORDS SUMMARY | 2022-05-02 12:35 | XMS_ITS | Encounter Summary ---
:1950 Author Organization [place] Address [address] [facility] [place] [address] Care Team Providers Name Role Phone Anatoliy Jackson MD Primary Care Provider Heath More MD Unavailable Peter Gipson MD Unavailable Peter Mcmullen MD Unavailable Fidencio Solis MD Unavailable Encounter Details Date Type Department Care Team Description 12/21/2020 Orders Only [facility] Heart Esse ntial hypertension; Clinic [place] S/P coronary artery stent pl acement [address] [facility] [address] [place] [address] Social History Tobacco Use [...] been in contact with No / Unsure 12/21/2020 8:23 AM CDT someone who was confirmed or 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 documented as of this encounter Plan of Treatment Upcoming Encounters Date Type Specialty Care Team Description 05/15/2022 Hospital Encounter Surgery Singh Torres MD [facility] [address] [place] [address] (Wo rk) 05/15/2022 Surgery Surgery Neo Torres MD BLEPHAROPLASTY BILATERAL [facility] [facility] U[facility]S, INTERNAL & SURGEONS PA PTOSIS REPAIR BILATERAL [address] [place], [place] [address] (Wo rk) 06/25/2022 Ancillary Procedure Cardiology Kirk Silver MD [address] [place], [place] [address] (Wo rk) Scheduled Procedures Name Priority Associated [...] Associated Diagnosis Comme nts LIPID PROFILE Routine 12/21/2020 8:28 AM Essential Results for this CDT hypertension procedure are in the S/P coronary artery results section. stent placement ALT Routine 12/21/2020 8:28 AM Essential Results f or this CDT hypertension procedure are in the S/P coronary artery results section. stent placement documented in this encounter Results (ABNORMAL) Lipid Profile (12/21/2020 8:28 AM CDT) P athologist Signature Cholesterol 115 <200 mg/dL 12/21/2020 [facility] 10:20 AM CDT [facility] Triglycerides 251 (H) <150 mg/dL 12/21/2020 [facility] 10:21 AM [facility] Comment: Borderline high: ??150-199 mg/dl High: ? 200-499 mg/dl Very high: ? >499 mg/dl Fasting specimen HDL Cholesterol 31 (L) >39 mg/dL 12/21/2020 10:23 AM [facility] LDL Cholesterol 34 <100 mg/dL 12/21/2020 10:23 AM [facility] Comment: Desirable: <100 mg/dl Non HDL Cholesterol 84 <130 mg/dL 12/21/2020 10:23 AM [facility] Specimen Anatomical Collection Method Collection Time Receive d Time (Source) Location / / Volume Laterality Blood 12/21/2020 8:28 AM 8:31 CDT AM CDT Fidencio Solis MD LAB - BLOOD ORDERABLES Performing Organization Address City/[facility]/ZIP Code Phon e Number M [facility] [address] [place], [place] [address] [facility] [address] [place] [address], [facility] [phone] ALT (12/21/2020 8:28 AM CDT) P athologist Signature ALT 23 0 - 70 U/L 12/21/2020 [facility] 10:19 AM T HOSPITAL Specimen Anatomical Collection Method Collection Time Receive d Time (Source) Location / / Volume Laterality Blood 12/21/2020 8:28 AM 8:31 CDT AM CDT Fidencio Solis MD LAB - BLOOD ORDERABLES Performing Organization Address City/[facility]/ZIP [facility] Phon e Number [facility] [address] [place], [place] [address] 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 documented in this encounter Care Teams Prop Setter Relationship Specialty Start Date End Date Anatoliy Jackson, PCP - General 05/14/12 Heath More PCP - Internal Medicine INTERNAL MEDICINE - 01/06/14 MD Andreas ENDOCRINOLOGY, ENDOCRINE CLINIC DIABETES & METABOLISM OF [facility] [address] [place] [phone] Peter Gipson PCP - Urology 04/02/15 MD Jordan [facility] [address] [facility] [address] [place] [address] Peter Mcmullen Assigned Musculoskeletal 06/01/20 MD Mahendra Provider [facility] [facility] [address] [place], [place] [phone] Fidencio Solis MD Assigned Heart and 12/16/20 02/21/21 [address], Vascular Provider [address] [place] [id number] documented as of this encounter
--- OUTSIDE RECORDS SUMMARY | 2022-05-02 12:35 | XMS_ITS | Encounter Summary ---
:1950 Author Organization [place] Address [address] [facility] [place] [address] Care Team Providers Name Role Phone Anatoliy Jackson MD Primary Care Provider Heath More MD Unavailable Peter Gipson MD Unavailable Peter Aguiar MD Unavailable Peter Mcmullen MD Unavailable Fidencio Solis MD Unavailable Reason for Visit Reason Onset Date Comments Patient Request 11/08/2020 bradycardia Encounter Details Date Type Department Care Team Description 11/08/2020 Telephone [facility] Karla Amin, Patient Request [facility] Heart RN (bradycardia) [address] [phone] Social History Tobacco Use Types [...] Telephone Encounter - Karla Amin RN - 11/08/2020 2:42 PM CDT Received message that patient stopped in clinic yesterday stating he had just had an epidural injections and was told his HR was in the 40's. Per note, pt was asymptomatic. He was previously seen in our clinic by Dr. Aguiar and has schedule visit to establish care with Dr. Solis on 12/14. Called pt to review, no answer. LM on both mobile and home number to call back. Karey KELLY documented in this encounter Plan of Treatment Upcoming Encounters Date Type Specialty Care Team Description 05/15/2022 Hospital Encounter Surgery Singh Torres MD [facility] [address] [place] [phone] (Wo rk) 05/15/2022 Surgery Surgery Neo Torres MD BLEPHAROPLASTY BILATERAL [place] [facility] IDS, INTERNAL & SURGEONS PA PTOSIS REPAIR BILATERAL [address] [place] [address] [phone] (Wo rk) 06/25/2022 Ancillary Procedure Cardiology Kirk Silver MD [address] [place] [address] (Wo rk) Scheduled Procedures Name Priority Associated [...] on filedocumented in this encounter Care Teams Jet Dyeing Machine Operator Relationship Specialty Start Date End Date Anatoliy Jackson, PCP - General 05/14/12 Heath More PCP - Internal Medicine INTERNAL MEDICINE - 01/06/14 MD Andreas ENDOCRINOLOGY, ENDOCRINE CLINIC DIABETES & METABOLISM [facility] [address] [place] [phone] Peter Gipson PCP - Urology 04/02/15 MD Jordan [facility] [address] [place] [address] Peter Aguiar Assigned Heart and 06/01/20 12/15/20 MD Ishan Vascular Provider [address] [place] [address] Peter Mcmullen Assigned Musculoskeletal 06/01/20 MD Mahendra Provider [facility] [place], [place] [id number] [place], [place] [phone] Fidencio Solis MD Assigned Heart and 12/16/20 02/21/21 [address], Vascular Provider [address] [place] [address] documented as of this encounter
--- OUTSIDE RECORDS SUMMARY | 2022-05-02 12:35 | XMS_ITS | Encounter Summary ---
:1950 Author Organization [place] Address [address] [facility] [place] [address] Care Team Providers Name Role Phone Anatoliy Jackson MD Primary Care Provider Heath More MD Unavailable Peter Gipson MD Unavailable Peter Aguiar MD Unavailable Peter Mcmullen MD Unavailable Reason for Visit Reason Onset Date Comments *-*INCOMING RECORDS*-* 10/23/2020 Encounter Details Date Type Department Care Team Description 10/23/2020 PRE VISIT [facility] Peter Ramirez *-*INCOM ING RECORDS*-* [facility] Konstantin Mccray [address] [place] [address] [phone] [address] (Work) [phone] Social History Tobacco Use Types Packs/Day Years [...] this encounter Miscellaneous Notes Telephone Encounter - [place] Vizcarra - 10/02/2020 2:41 PM CST DIAGNOSIS: (L) hip possible bursitis / Dr. Peter Gipson @ [facility] / Medicare / no surgery, imaging @ [facility] APPOINTMENT DATE: 10.23.20 NOTES STATUS DETAILS OFFICE NOTE from referring provider Care everywhere [facility] OFFICE NOTE from other specialist N/A DISCHARGE SUMMARY from hospital N/A DISCHARGE REPORT from the ER N/A OPERATIVE REPORT N/A EMG report N/A MEDICATION LIST Internal MRI Internal DEXA (osteoporosis/bone health) N/A CT SCAN N/A XRAYS (IMAGES & REPORTS) Internal documented in this encounter Plan of Treatment Upcoming Encounters Date Type Specialty Care Team Description 05/15/2022 Hospital Encounter Surgery Singh Torres MD [facility] [address] [place] [phone] (Rosalva rk) 05/15/2022 Surgery Surgery Neo Torres MD BLEPHAROPLASTY BILATERAL [place] [facility]PPER L IDS, INTERNAL & SURGEONS PA PTOSIS REPAIR BILATERAL [address] [place] [address] (Wo rk) 06/25/2022 Ancillary Procedure Cardiology Kirk Silver MD [address] [place] [address] (Rosalva rk) Scheduled Procedures Name Priority Associated [...] on filedocumented in this encounter Care Teams Back Digger Operator Relationship Specialty Start Date End Date Anatoliy Jackson, PCP - General 05/14/12 Heath More PCP - Internal Medicine INTERNAL MEDICINE - 01/06/14 MD Andreas ENDOCRINOLOGY, ENDOCRINE CLINIC DIABETES & METABOLISM OF [facility] [address] [place] [phone] Peter Gipson PCP - Urology 04/02/15 MD Jordan [facility] [address] [facility] [address] [place] [address] Peter Aguiar Assigned Heart and 06/01/20 12/15/20 MD Ishan Vascular Provider [address] [place] [address] Peter Mcmullen Assigned Musculoskeletal 06/01/20 MD Mahendra Provider [address] [place], [place] [address] documented as of this encounter
--- OUTSIDE RECORDS SUMMARY | 2022-05-02 12:35 | XMS_ITS | Encounter Summary ---
:1950 Author Organization [place] Address [address] [facility] [place] [address] Care Team Providers Name Role Phone Anatoliy Jackson MD Primary Care Provider Heath More MD Unavailable Peter Gipson MD Unavailable Peter Mcmullen MD Unavailable Fidencio Solis MD Unavailable Encounter Details Date Type Department Care Team Description 12/21/2020 Travel Social History Tobacco Use Types Packs/Day [...] 05/15/2022 Hospital Encounter Surgery Singh Torres MD [facility] [address] [place] [address] (Wo rk) 05/15/2022 Surgery Surgery Neo Torres MD BLEPHAROPLASTY BILATERAL [facility] PTOSIS REPAIR BILATERAL [address] [place] [address] (Wo rk) 06/25/2022 Ancillary Procedure Cardiology Kirk Silver MD [address] [place] [address] (Wo rk) Scheduled Procedures Name Priority Associated [...] on filedocumented in this encounter Care Teams Pipeline Controller Relationship Specialty Start Date End Date Anatoliy Jackson, PCP - General 05/14/12 Heath More PCP - Internal Medicine INTERNAL MEDICINE - 01/06/14 MD Andreas ENDOCRINOLOGY, [facility] DIABETES & METABOLISM [facility] [address] [place] [phone] Peter Gipson PCP - Urology 04/02/15 MD Jordan [facility] [address] [facility] [address] [place] [address] Peter cMmullen Assigned Musculoskeletal 06/01/20 MD Mahendra Provider [facility] [address] [address] Fidencio Solsi MD Assigned Heart and 12/16/20 02/21/21 [address], Vascular Provider [address] [place] [address] documented as of this encounter
--- OUTSIDE RECORDS SUMMARY | 2022-05-02 12:35 | XMS_ITS | Encounter Summary ---
:1950 Author Organization [place] Address [address] [facility] [place] [address] Care Team Providers Name Role Phone Anatoliy Jackson MD Primary Care Provider Heath More MD Unavailable Peter Gipson MD Unavailable Peter Aguiar MD Unavailable Peter Mcmullen MD Unavailable Encounter Details Date Type Department Care Team Description 10/22/2020 [facility] Konstantin Mccray) [address] [place], [place] [phone] Social History Tobacco Use Types Packs/Day [...] [address] [place] [address] (Wo rk) 05/15/2022 Surgery Surgery Neo Torres MD BLEPHAROPLASTY BILATERAL [facility] PTOSIS REPAIR BILATERAL [address] [place] [address] (Wo rk) 06/25/2022 Ancillary Procedure Cardiology Kirk Silver MD [address] [place] [phone] (Wo rk) Scheduled Procedures Name Priority Associated Diagnoses Date/Time REPAIR, PTOSIS, BILATERAL, Dermatochalas is 05/15/2022 7:30 AM CDT WITH BILATERAL BLEPHAROPLASTY 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 REPAIR, ECTROPION, EYE, Dermatochalasis 05/15/2022 7:30 AM CDT BILATERAL 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 documented as of this encounter Visit Diagnoses Diagnosis Left hip pain - Primary Pain in joint, pelvic region and thigh 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 documented in this encounter Care Teams Coning Machine Operator Relationship Specialty Start Date End Date Anatoliy Jackson, PCP - General 05/14/12 Heath More PCP - Internal Medicine INTERNAL MEDICINE - 01/06/14 MD Andreas ENDOCRINOLOGY, [facility]INE [facility]INIC DIABETES & METABOLISM [facility] [address] [place] [phone] Peter Gipson PCP - Urology 04/02/15 MD Jordan [facility] [address] [facility] [address] [place] [address] Peter Aguiar Assigned Heart and 06/01/20 12/15/20 MD Ishan Vascular Provider [address] [place], [place] [address] Peter Mcmullen Assigned Musculoskeletal 06/01/20 MD Mahendra Provider [address] [facility] [address] [place], [place] [id number] documented as of this encounter
--- OUTSIDE RECORDS SUMMARY | 2022-05-02 12:35 | XMS_ITS | Encounter Summary ---
:1950 Author Organization [place] Address [address] [facility] [place] [address] Care Team Providers Name Role Phone Anatoliy Jackson MD Primary Care Provider Heath More MD Unavailable Peter Gipson MD Unavailable Peter Aguiar MD Unavailable Peter Mcmullen MD Unavailable Reason for Visit Reason Onset Date Comments Call To Schedule Appointment 12/10/2020 virtual myron t Encounter Details Date Type Department Care Team Description 12/10/2020 Telephone [facility] Peter Ramirez Call To Schedule Sports Medicine [facility] Konstantin Mccray Appointment ([place] [address] appt) [address] [place], [place] [address] [place] [address] [phone] (Work) [phone] Social History Tobacco Use Types Packs/Day Years [...] this encounter Miscellaneous Notes Telephone Encounter - Ivanna Marie - 12/10/2020 3:57 PM CDT Called and spoke to pt. Informed pt that 'same day' slot aren't able to be scheduled. No sooner apptthen January with Dr Mcmullen @ [facility] in [place]. Scheduled virtual visit with Dr Mcmullen @ . All questions answered. Ivanna Marie ATC Telephone Encounter - Katie Flanagan - 12/10/2020 12:15 PM CDT Health Call Center Phone Message May a detailed message be left on voicemail: yes Reason for Call: Other: Patient canceld another patient's appt w/Dr. Mcmullen for @ 2:20 and would like to know if he can take that appt virtually or in person. It is marked same day Action Taken: Message routed to: [facility] ([facility]): [facility] Travel Screening: Not Applicable documented in this encounter Plan of Treatment Upcoming Encounters Date Type Specialty Care Team Description 05/15/2022 Hospital Encounter Surgery Singh Torres MD [facility] [address] [place] [address] (Wo rk) 05/15/2022 Surgery Surgery Neo Torres MD BLEPHAROPLASTY BILATERAL [facility] PTOSIS REPAIR BILATERAL [address] [place] [address] (Wo rk) 06/25/2022 Ancillary Procedure Cardiology Kirk Silver MD [address] [place] [address] (Wo rk) Scheduled Procedures Name Priority Associated [...] on filedocumented in this encounter Care Teams Credit Reference Clerk Relationship Specialty Start Date End Date Anatoliy Jackson, PCP - General 05/14/12 Heath More PCP - Internal Medicine INTERNAL MEDICINE - 01/06/14 MD Andreas ENDOCRINOLOGY, ENDOCRINE CLINIC DIABETES & METABOLISM OF [facility] [address] [place] [phone] Peter Gipson PCP - Urology 04/02/15 MD Jordan [facility] 360 [facility] [address] [place] [address] Peter Aguiar Assigned Heart and 06/01/20 12/15/20 MD Ishan Vascular Provider [address] [place] [address] Peter Mcmullen Assigned Musculoskeletal 06/01/20 MD Mahendra Provider [address] [place], [place] [address] documented as of this encounter
--- OUTSIDE RECORDS SUMMARY | 2022-05-02 12:35 | XMS_ITS | Encounter Summary ---
:1950 Author Organization [place] Address [address] [facility] [place] [address] Care Team Providers Name Role Phone Anatoliy Jackson MD Primary Care Provider Heath More MD Unavailable Peter Gipson MD Unavailable Peter Mcmullen MD Unavailable Fidencio Solis MD Unavailable Reason for Referral Diagnostic Imaging NM (Routine) - Closed Specialty Diagnoses / Procedures Referred By Contact Refer red To Contact Cardiology Diagnoses S/P coronary artery stent placement Dyspnea on exertion Fidencio Solis MD Cv Nuclear Medicine Procedures NM Exercise stress test (nuc card) [address] [facility] [address], [place] [address] [facility] [address] [place] [address] [place] [address] Referral ID Status Reason Start Date Expiration Date Visits Requ ested Visits Authorized [id number] Closed 12/14/2020 12/14/2021 1 1 Reason for Visit Diagnostic Imaging NM (Routine) - Closed Specialty Diagnoses / Procedures Referred By Contact Refer red To Contact Cardiology Diagnoses S/P coronary artery stent placement Dyspnea on exertion Fidencio Solis MD Cv Nuclear Medicine Procedures NM Exercise stress test (nuc card) [address], [place] [address] [place] [address] [place] [phone] Referral ID Status Reason Start Date Expiration Date Visits Requ ested Visits Authorized [id number] Closed 12/14/2020 12/14/2021 1 1 Encounter Details Date Type Department Care Team Description 12/24/2020 Hospital Encounter [facility] Fidencio Solis MD S/P coronary artery stent placement; [facility] [address] Dyspnea on exertion [address], [address] [place] [address] [place] [phone] Social History Tobacco Use [...] Coronary artery disease daily (with meals) involving [place] coronary artery of [place] heart without angina pectoris cloNIDine (CATAPRES) Take [...] artery disease (If pain is not involving [place] relieved 5 minutes coronary artery of after 1st dose call [place] heart without 911) angina pectoris rosuvastatin (CRESTOR) Take 1 tablet (40 mg) 90 tablet 3 01/03/2021 40 MG by mouth every tabletIndications: evening Coronary artery disease involving [place] coronary artery of [place] heart without angina pectoris, Hyperlipidemia LDL goal [...] [address] [place] [address] (Wo rk) 05/15/2022 Surgery Surgery Neo Torres MD BLEPHAROPLASTY BILATERAL [facility], [facility] & [facility] PTOSIS REPAIR BILATERAL [address] [place] [address] (Wo rk) 06/25/2022 Ancillary Procedure Cardiology Kirk Silver MD [address] [place] [address] (Wo rk) Scheduled Procedures Name Priority Associated [...] (12/24/2020 2:50 PM CDT) Analysis Performed At Patho logist [...] in this encounter Visit Diagnoses Diagnosis S/P coronary artery stent placement Postsurgical percutaneous transluminal c oronary angioplasty status Dyspnea on exertion Other dyspnea and respiratory abnormalit y 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 documented in this encounter Administered Medications Inactive Administered Medications - up to 3 most recent administrations Medication Order MAR Action Action Date Dose Rate Site sodium chloride (PF) 0.9% PF flush Given 12/24/2020 1:26 PM CDT 10 mLs 10 mL 10 mL, Intravenous, ONCE, On Thu12/24/20 at 1330, For 1 dose sodium chloride (PF) 0.9% PF flush 10 mL Given 12/24/2020 2:46 PM CDT 10 mLs 10 mL, Intravenous, ONCE, On Thu12/24/20 at 1500, For 1 dose technetium Tc 99m tetrofosmin 2UD study Given 12/24/2020 2:46 PM CDT 12.03 mCi (MYOVIEW) radioisotope injection 3-42 mC i 3-42 mCi, Intravenous, 2 TIMES DAILY PRN, based on schedule, Starting on Thu12/24/20 at 1309, For 2 doses, Radioisotope, supplied by and administered by Nuclear Medicine. *HW* Given 12/24/2020 1:22 PM CDT 3.91 mCi documented in this encounter Care Teams Dispatcher Bus And Trolley Relationship Specialty Start Date End Date Anatoliy Jackson PCP - General 05/14/12 Heath More PCP - Internal Medicine INTERNAL MEDICINE - 01/06/14 MD Andreas ENDOCRINOLOGY, ENDOCRINE CLINIC DIABETES & METABOLISM [address] [place] [address] Peter Gipson PCP - Urology 04/02/15 MD Jordan [facility] [address] [facility] [address] [place] [address] Peter Mcmullen Assigned Musculoskeletal 06/01/20 MD Mahendra Provider [facility] [address] [facility] [address] [place], [place] [address] Fidencio Solis MD Assigned Heart and 12/16/20 02/21/21 [address], Vascular Provider [address] [place] [address] documented as of this encounter
--- OUTSIDE RECORDS SUMMARY | 2022-05-02 12:35 | XMS_ITS | Encounter Summary ---
:1950 Author Organization [place] Address [address] [facility] [place] [address] Care Team Providers Name Role Phone Anatoliy Jackson MD Primary Care Provider Heath More MD Unavailable Peter Gipson MD Unavailable Peter Aguiar MD Unavailable Peter Mcmullen MD Unavailable Encounter Details Date Type Department Care Team Description 10/23/2020 Travel Social History Tobacco Use Types Packs/Day [...] [address] [place] [address] (Wo rk) 05/15/2022 Surgery Surgery Neo Torres MD BLEPHAROPLASTY BILATERAL [facility], [facility] & SUR[facility] PTOSIS REPAIR BILATERAL [address] [place] [address] (Wo rk) 06/25/2022 Ancillary Procedure Cardiology Kirk Silver MD [address] [place] [id number] (Wo rk) Scheduled Procedures Name Priority Associated [...] on filedocumented in this encounter Care Teams Coil Tier Relationship Specialty Start Date End Date Anatoliy Jackson, PCP - General 05/14/12 Heath More PCP - Internal Medicine INTERNAL MEDICINE - 01/06/14 MD Andreas ENDOCRINOLOGY, ENDOCRINE CLINIC DIABETES & METABOLISM [facility] [address] [place] [phone] Peter Gipson PCP - Urology 04/02/15 MD Jordan [facility] [address] [place] [address] Peter Aguiar Assigned Heart and 06/01/20 12/15/20 MD Ishan Vascular Provider [address] [place], [place] [address] Peter Mcmullen Assigned Musculoskeletal 06/01/20 MD Mahendra Provider [address] [facility] [address] [place], [place] [address] documented as of this encounter
--- OUTSIDE RECORDS SUMMARY | 2022-05-02 12:35 | XMS_ITS | Encounter Summary ---
:1950 Author Organization [place] Address [address] [facility] [place] [address] Care Team Providers Name Role Phone Anatoliy Jackson MD Primary Care Provider Heath More MD Unavailable Peter Gipson MD Unavailable Peter Mcmullen MD Unavailable Fidencio Solis MD Unavailable Encounter Details Date Type Department Care Team Description 12/17/2020 Orders Only [facility] [place] Heart RN (Spenser hinojosa Dx) [facility]-[address] [phone] Social History Tobacco Use Types [...] been in contact with No / Unsure 12/14/2020 3:14 PM CDT someone who was confirmed or 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 documented as of this encounter Progress Notes Laureen Emerson, RN - 12/17/2020 9:41 AM CDT Pt dose of amlodipine was increased at time of last OV. Pt unable to cut the 5mg tabs without the,m crumbling. Script sent for 2.5mg tablets so pt can take 5mg tab and 2.5mg tablet for a total dose of 7.5mg. Wayne Emerson RN, BSN. 12/17/20 10:07 AM documented in this encounter Plan of Treatment Upcoming Encounters Date Type Specialty Care Team Description 05/15/2022 Hospital Encounter Surgery Singh Torres MD [facility] [address] [place] [address] (Wo rk) 05/15/2022 Surgery Surgery Neo Torres MD BLEPHAROPLASTY BILATERAL [facility], INTERNAL & SURGEONS [facility] PTOSIS REPAIR BILATERAL [address] [place] [place] [address] (Wo rk) 06/25/2022 Ancillary Procedure Cardiology Kirk Silver MD [address] [place] [address] (Wo rk) Scheduled Procedures Name Priority Associated [...] ptosis documented in this encounter Care Teams Principal Account Clerk Relationship Specialty Start Date End Date Anatoliy Jackson, PCP - General 05/14/12 Heath More PCP - Internal Medicine INTERNAL MEDICINE - 01/06/14 MD Andreas ENDOCRINOLOGY, ENDOCRINE CLINIC DIABETES & METABOLISM [facility] [address] [place] [address] Peter Gipson PCP - Urology 04/02/15 MD Jordan [facility] 360 [facility] [address] [place] [address] Peter Mcmullen Assigned Musculoskeletal 06/01/20 MD Mahendra Provider [facility] [address] [facility] [address] [place], [place] [address] Fidencio Solis MD Assigned Heart and 12/16/20 02/21/21 [address], Vascular Provider [address] [place] [address] documented as of this encounter
--- OUTSIDE RECORDS SUMMARY | 2022-05-02 12:35 | XMS_ITS | Encounter Summary ---
:1950 Author Organization [place] Address [address] [facility] [place] [address] Care Team Providers Name Role Phone Anatoliy Jackson MD Primary Care Provider Heath More MD Unavailable Peter Gipson MD Unavailable Peter Aguiar MD [facility]available [facility] Un[facility] Reason for Referral CV Testing [...] GUIDE FOR PERICARDIOCENTESIS [address], [place] ZZHC ECHO MYOCARD BX ZZC INJECTION, PERFLUTREN LIPID MICROSPHERES, PER ML ZZHC STATISTIC IV PUSH SINGLE INITIAL SUBSTANCE IA ECHO MYOCARD BX IA INJECTION, PERFLUTREN LIPID MICROSPHERES, PER ML IA TTE W/DOPPLER, COMPLETE [address] IA IV PUSH SINGLE, INITIAL S UBSTANCE IA TTE W/DOPPLER, COMPLETE IA TTE W/DOPPLER, COMPLETE HC US GUIDE FOR PERICARDIOCENTESIS HC ECHO MYOCARD BX HC IV PUSH SINGLE, INITIAL SUBSTANCE HC STATISTIC IV PUSH SINGLE INITIAL SUBSTANCE [place] [address] HC ECHO COMPLETE W DOPPLER W CONTRAST HC ECHO COMPLETE W DOPPLER W/O CONTRAST Referral ID Status Reason Start Date Expiration Date Visits Requ ested Visits Authorized [id number] Closed 12/15/2020 12/15/2021 1 1 (Routine) - Closed Specialty Diagnoses / Procedures Referred By Contact Refer red To Contact Diagnoses Hyperlipidemia LDL goal <70 Essential hypertension S/P coronary artery stent placement Dyspnea on exertion Anabella Loving MD [address] [place] [address] Referral ID Status Reason Start Date Expiration Date Visits Requ ested Visits Authorized [id number] Closed 12/14/2020 12/14/2021 1 1 (Routine) - Closed Specialty Diagnoses / Procedures Referred By Contact Refer red To Contact Diagnoses Essential hypertension S/P coronary artery stent placement Anabella Loving MD [address] [place] [address] Referral ID Status Reason Start Date Expiration Date Visits Requ ested Visits Authorized [id number] Closed 12/14/2020 12/14/2021 1 1 iagnostic Imaging NM (Routine) - Closed Specialty Diagnoses / Procedures Referred By Contact Refer red To Contact Cardiology Diagnoses S/P coronary artery stent placement Dyspnea on exertion Anabella Loving MD Sh Cv Nuclear Medicine Procedures NM Exercise stress test (nuc card) [address], [place] [address] [place] [address] [place] [id number] Referral ID Status Reason Start Date Expiration Date Visits Requ ested Visits Authorized [id number] Closed 12/14/2020 12/14/2021 1 1 Reason for Visit Reason Comments Coronary Artery Disease Encounter Details Date Type Department Care Team Description 12/14/2020 Office Visit [facility] Anabella Loving MD Hyperlipidemia LDL goal <70 (Primary Dx) ; [facility] [address] Peripher al vascular disease (H); [facility] [address] Essential hypertension; [address] [place], [place] [address] Coronary artery disease involving [place] coronary artery of [place] heart without angina pectoris; [address] S/P coronary artery stent pl acement; [place], [place] (Work) Dyspnea on exertion [id number] Social History Tobacco Use Types Packs/Day [...] Sign Reading Time Taken Comments Blood Pressure 122/64 12/14/2020 3:15 PM CDT Pulse 56 12/14/2020 3:15 PM CDT Temperature - - Respiratory Rate - - Oxygen Saturation - - Inhaled Oxygen Concentration - - Weight 103.1 kg (227 lb 4.8 oz) 12/14/2020 3:15 PM CDT Height 180.3 cm (5' 11) 12/14/2020 3:15 PM CDT Body Mass Index 31.7 12/14/2020 3:15 PM CDT documented in this encounter Patient Instructions Patient InstructionsHoAnabella MD - 12/14/2020 3:15 PM CDT Images from the original note were not included. December 14, 2020 Thank you for allowing our Cardiology team to participate in your care. Please note the following changes to your heart treatment plan: Medication changes: - decrease carvedilol 12.5mg twice daily to 6.25mg twice daily - increase amlodipine 5mg daily to 7.5mg daily - HOLD carvedilol 24h BEFORE and the DAY OF the stress test Tests to be done: - Nuclear stress test at [facility] - FASTING cholesterol labs Follow up: - Follow up in 1 year with Prabhjot DAVILA and with me a year after that, or sooner as needed. Please contact our team at [phone] for any questions or concerns. If you are having a medical emergency, please call 911. Sincerely, Anabella Loving MD, [facility] Cardiology [facility] - [facility] - [facility] - Rad documented in this encounter Progress Notes Anabella Loving MD - 12/14/2020 3:15 PM CDT Images from the original note were not included. Cardiology Clinic Progress Note: December 14, 2020 Patient Name: Nikita Andreson Patient Consult indication: CAD HPI: I the opportunity to see Mr. Nikita Anderson today in cardiology clinic for a follow-up visit. He is followed by our colleague Dr. Jackson with Primary Care. As you know, Mr. Anderson is a pleasant 70-year-old male with a past medical history significant for hypertension, hyperlipidemia, diabetes, chronic kidney disease, coronary artery disease status post PCI, obesity (BMI 32 kg/m??), who presents for follow-up. Patient was previously followed by my colleagues Dr. Aguiar and Prabhjot DAVILA. He was last seen incardiology clinic 12/01/2018 with Prabhjot DAVILA and at that time he had been feeling generally well, and no changes were warranted to his cardiac regimen. Patient has an extensive prior cardiac history. [...] planning to go to a trip to [place] shortly thereafter. As his symptoms were stable, [...] test (preop), and demonstrated widely patent stents. Cardiac catheterization images were reviewed personally. Following this, he reports that he has been doing generally well until over the last year, when he started having gradually worsening shortness of breath on exertion. He denies any chest pain or chest pressure. He denies any recent change recently, however his dyspnea on exertion has been gradually getting worse. No symptoms at rest. ECG today in clinic demonstrates sinus bradycardia at around 50 bpm. Last lipids from 11/2017 demonstrate total cholesterol 98, HDL 31, LDL 24, triglycerides 213. Assessment and Plan/Recommendations: # Coronary artery disease status post PCI with JAVIER to OM2, ostial and proximal left circumflex artery (04/09/2015), last coronary angiogram 03/2016 demonstrated widely patent stents. Patient has been experiencing some gradually worsening dyspnea on exertion over the past year or so, similar to his prioranginal equivalent symptoms. # HFrEF, LVEF 45-50% on LV gram 04/01/2016. Possible that his gradually worsening dyspnea on exertionmay be related to heart failure symptoms, however weight has been stable over the last 2 years, physical exam does not demonstrate findings suggestive of significant hypervolemia. # Dyslipidemia. # Sinus bradycardia. Could be contributing to his symptoms of fatigue. -Will decrease carvedilol 12.5 mg twice daily to 6.25 mg twice daily, given bradycardia -Will increase amlodipine 5 mg daily to 7.5 mg daily -Nuclear stress test in [facility], advised to hold carvedilol 24 hours before and the morning of the stress test -TTE -Continue rosuvastatin 40 mg nightly, lisinopril-hydrochlorothiazide, clonidine 0.1 mg twice daily, aspirin -Fasting lipids -Follow-up in 1 year with LOLA Driver, and with me a year after that, or sooner as needed Thank you for allowing our team to participate in the care of Nikita Anderson. Please do not hesitateto call or page me with any questions or concerns. Sincerely, Anabella Loving MD, [facility] Cardiology Text Page December 14, 2020 Past Medical History: Past Medical History: Diagnosis [...] (5 mg) by mouth daily 90 tablet 0 ??? aspirin 325 MG tablet Take 81 mg by mouth daily ??? carvedilol (COREG) 12.5 MG tablet Take 1 tablet (12.5 mg) by mouth 2 times daily (with meals) 180 tablet 3 ??? cloNIDine (CATAPRES) 0.1 MG tablet Take 0.1 mg by mouth 2 times daily ??? Ferrous Sulfate (IRON PO) Take 50 mg by mouth daily ??? gabapentin (NEURONTIN) 100 MG capsule TAKE 1 CAPSULE(100 MG) BY MOUTH THREE TIMES DAILY (Patienttaking differently: Take 100 mg by mouth 2 times daily ) 90 capsule 1 ??? glucosamine-chondroitin 500-400 MG [...] At Bedtime ??? Turmeric 500 MG CAPS Take by mouth daily ??? finasteride (PROSCAR) 5 MG tablet Take 5 mg by mouth ??? gabapentin (NEURONTIN) 300 MG capsule TK ONE C PO TID ??? GABAPENTIN PO Take 300 mg by mouth as needed Allergies: Allergies Allergen Reactions ??? Atorvastatin Other (See Comments) Congestion ??? Epinephrine Palpitations Social History: History Drug Use No History Smoking Status ??? Never Smoker Smokeless Tobacco ??? Never Used Social History Substance and Sexual Activity Alcohol use: Yes Alcohol/week: 0.0 standard drinks Comment: beer and wine, every couple days Family History: Family History Problem Relation Age of Onset ??? Hypertension Mother ??? Diabetes Maternal Grandmother ??? Hypertension Maternal Grandmother ??? Hypertension Maternal Grandfather Review of Systems: A complete review of systems was negative except as mentioned in the History of Present Illness. Objective & Physical Exam: BP 122/64 Pulse 56 Ht 1.803 m (5' 11) Wt 103.1 kg (227 lb 4.8 oz) BMI 31.70 kg/m?? Wt Readings from Last 2 Encounters: 12/14/20 103.1 kg (227 lb 4.8 oz) 10/23/20 102.1 kg (225 lb) Body mass index is 31.7 kg/m??. Body surface area is 2.27 meters squared. Constitutional: appears stated age, in no apparent distress, appears to be well nourished Eyes: sclera anicteric, conjunctiva normal ENT: normocephalic, without obvious abnormality, atraumatic Pulmonary: clear to auscultation bilaterally, no wheezes, no rales, no increased work of breathing Cardiovascular: JVP normal, bradycardic, regular rhythm, normal S1 and S2, no S3, S4, no murmur appreciated, no lower extremity edema Gastrointestinal: abdominal exam benign Neurologic: awake, alert, face symmetrical, moves all extremities Skin: no jaundice Psychiatric: affect is normal, answers questions appropriately, oriented to self and place Data reviewed: Lab Results Component Value Date WBC 9.9 04/27/2016 RBC 2.78 (L) 04/27/2016 HGB 8.2 (L) 04/27/2016 HCT 24.5 (L) 04/27/2016 MCV 88 04/27/2016 MCH 29.5 04/27/2016 MCHC 33.5 04/27/2016 RDW 12.9 04/27/2016 PLT 207 04/27/2016 Sodium Date Value Ref Range Status 11/30/2017 139 133 - 144 mmol/L Final Potassium Date Value Ref Range Status 11/30/2017 4.6 3.4 - 5.3 mmol/L Final Chloride Date Value Ref Range Status 11/30/2017 106 94 - 109 mmol/L Final Carbon Dioxide Date Value Ref Range Status 11/30/2017 25 20 - 32 mmol/L Final Anion Gap Date Value Ref Range Status 11/30/2017 8 3 - 14 mmol/L Final Glucose Date Value Ref Range Status 11/30/2017 319 (H) 70 - 99 mg/dL Final Comment: Fasting specimen Urea Nitrogen Date Value Ref Range Status 11/30/2017 38 (H) 7 - 30 mg/dL Final Creatinine Date Value Ref Range Status 11/30/2017 1.28 (H) 0.66 - 1.25 mg/dL Final GFR Estimate Date Value Ref Range Status 11/30/2017 56 (L) >60 mL/min/1.7m2 Final Comment: Non GFR Calc Calcium Date Value Ref Range Status 11/30/2017 8.6 8.5 - 10.1 mg/dL Final Bilirubin Total Date Value Ref Range Status 04/27/2016 0.4 0.2 - 1.3 mg/dL Final Alkaline Phosphatase Date Value Ref Range Status 04/27/2016 47 40 - 150 U/L Final ALT Date Value Ref Range Status 11/30/2017 28 0 - 70 U/L Final AST Date Value Ref Range Status 04/27/2016 14 0 - 45 U/L Final Recent Labs Lab Test 11/30/17 0909 12/03/16 0950 04/09/15 0700 04/09/15 0700 10/12/13 CHOL 98 156 < > 132 154 HDL 31* 38* < > 38* 35* LDL 24 62 < > 59 62 TRIG 213* 278* < > 174* 287* CHOLHDLRATIO -- -- -- 3.5 4.4 < > = values in this interval not displayed. Lab Results Component Value Date A1C 9.7 06/07/2014 A1C 8.2@ 08/14/2009 A1C 8.1@ 04/22/2005 A1C 10.7 09/25/2004 A1C 10.7 03/27/2004 No results found for this or any previous visit (from the past 4320 hour(s)). documented in this encounter Plan of Treatment Upcoming Encounters Date Type Specialty Care Team Description 05/15/2022 Hospital Encounter Surgery Singh Torres MD [facility] [address] [place] [address] (Wo rk) 05/15/2022 Surgery Surgery Neo Torres MD BLEPHAROPLASTY BILATERAL [place] [facility] PTOSIS REPAIR BILATERAL [address] [place] [id number] (Wo rk) 06/25/2022 Ancillary Procedure Cardiology Kirk Silver MD [address] [place] [id number] (Wo rk) Scheduled Procedures Name Priority Associated [...] S chedule Follow-Up with Cardiac Referral Routine Essential hypertension Expected: [facility] S/P coronary artery cassi nt 12/14/2021 Provider placement (Approximate), Expires: 2021 Follow-Up with Referral Routine Hyperlipidemia LDL goal Ex pected: [employer] <70 12/14/2022 Essential hypert ension (Approximate), S/P coronary artery stent Ex kritsina: 01/03/2023 placement Dyspnea on exertion documented as of this encounter Procedures Procedure Name Priority Date/Time Associated Diagnosis Comme nts EKG 12-LEAD Routine 12/24/2020 6:32 AM Hyperlipidemia LDL goa l Results for this COMPLETE W/READ - CDT <70 procedure are in CLINICS Peripheral vascular the resu lts disease (H) section. Essential hypert ension Coronary artery disease involving [place] coronary artery of [place] heart without angina pectoris S/P coronary artery stent placement documented in this encounter Results ECHO COMPLETE (01/02/2021 3:28 PM CDT) Anatomical Region Laterality Modality Echocardiography Specimen (Source) Anatomical Collection Method Collection Time Re ceived Time Location / / Volume Laterality 01/02/2021 3:00 PM CDT Narrative 01/02/2021 4:14 PM CDT [id number]^FABIENNE^ANABELLA^[facility] Echocardiography Laboratory [address] [place] [address] Name: NIKITA ANDERSON : 1950 Study Date: 01/02/2021 03:00 PM Age: 70 yrs Gender: Male Patient Location: [facility] Reason For Study: Dyspnea on exertion [...] note might be different from the original. [id number]^FABIENNE^ANABELLA^[facility] Echocardiography Laboratory [address] [place] [id number] Name: NIKITA ANDERSON : 1950 Study Date: 01/02/2021 03:00 PM Age: 70 yrs Gender: Male Patient Location: [facility] Reason For Study: Dyspnea on exertion [...] PM Anabella Loving MD CV ECHO ORDERABLES NM Exercise stress test (nuc card) (12/24/2020 2:50 PM CDT) Analysis Performed At [facility] Time Signature Target HR 149 RADIANT Baseline [...] left ventricular wall motion is norm al. Anabella Loving MD IMG NM ORDERABLES EKG 12-lead complete w/read - Clinics (performed today) (12/24/2020 6:32 AM CDT) Narrative This result has an attachment that is no t available. Anabella Loving MD ECG ORDERABLES ALT (12/21/2020 8:28 AM CDT) athologist Signature ALT 23 0 - 70 U/L 12/21/2020 [facility] 10:19 AM [facility] Specimen Anatomical Collection Method Collection Time Receive d Time (Source) Location / / Volume Laterality Blood 12/21/2020 8:28 AM 8:31 CDT AM CDT Anabella Loving MD LAB - BLOOD ORDERABLES Performing Organization Address City/State/ZIP Code Phon e Number [place] [address] [place] [address] [facility] [address] [place] [phone] (ABNORMAL) Lipid Profile (12/21/2020 8:28 AM CDT) athologist Signature Cholesterol 115 <200 mg/dL 12/21/2020 [place] 10:20 AM [facility] Triglycerides 251 (H) <150 mg/dL 12/21/2020 [place] 10:21 AM [facility] Comment: Borderline high: ??150-199 mg/dl High: ? 200-499 mg/dl Very high: ? >499 mg/dl Fasting specimen HDL Cholesterol 31 (L) >39 mg/dL 12/21/2020 10:23 AM [facility] LDL Cholesterol 34 <100 mg/dL 12/21/2020 10:23 AM [facility] Comment: Desirable: <100 mg/dl Non HDL Cholesterol 84 <130 mg/dL 12/21/2020 10:23 AM CDT [facility] Specimen Anatomical Collection Method Collection Time Receive d Time (Source) Location / / Volume Laterality Blood 12/21/2020 8:28 AM 8:31 CDT AM CDT Anabella Loving MD LAB - BLOOD ORDERABLES Performing Organization Address City/State/ZIP Code Phon e Number M [facility] [address] [place], [place] [address] [facility] [address] [place], [place] [address] [place] [address] documented in this encounter Visit Diagnoses Diagnosis Hyperlipidemia LDL goal <70 - Primary Other and unspecified hyperlipidemia Peripheral vascular disease (H) Peripheral vascular disease, unspecified Essential hypertension Unspecified essential hypertension Coronary artery disease involving [place] coronary artery of [place] heart without angina pectoris S/P coronary artery stent placement Postsurgical percutaneous transluminal c oronary angioplasty status Dyspnea on exertion Other dyspnea and respiratory abnormalit y S/P coronary artery stent placement Postsurgical percutaneous transluminal c oronary angioplasty status Dyspnea on exertion Other dyspnea and respiratory abnormalit y Dyspnea on exertion Other dyspnea and respiratory abnormalit y 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 documented in this encounter Care Teams Tire Fabric Inspector Relationship Specialty Start Date End Date Anatoliy Jackson PCP - General 05/14/12 Heath More PCP - Internal Medicine INTERNAL MEDICINE - 01/06/14 MD Andreas ENDOCRINOLOGY, ENDOCRINE CLINIC DIABETES & METABOLISM [facility] [address] [place] [address] Peter Gipson PCP - Urology 04/02/15 MD Jordan [facility] [address] [place] [address] [address] [place] [address] Peter Aguiar Assigned Heart and 06/01/20 12/15/20 MD Ishan Vascular Provider [address] [facility] [address] [place] [id number] Peter Mcmullen Assigned Musculoskeletal 06/01/20 MD Mahendra Provider [facility] [address] documented as of this encounter
--- OUTSIDE RECORDS SUMMARY | 2022-05-02 12:35 | XMS_ITS | Encounter Summary ---
:1950 Author Organization [place] Address [address] [facility] [place] [address] Care Team Providers Name Role Phone Anatoliy Jackson MD Primary Care Provider Heath More MD Unavailable Petre Gipson MD Unavailable Peter Aguiar MD Unavailable Peter Mcmullen MD Unavailable Encounter Details Date Type Department Care Team Description 12/14/2020 Travel Social History Tobacco Use Types Packs/Day [...] [address] [place] [address] (Wo rk) 05/15/2022 Surgery Surgery Neo Torres MD BLEPHAROPLASTY BILATERAL [place] [facility] PTOSIS REPAIR BILATERAL [address] [place] [address] (Wo rk) 06/25/2022 Ancillary Procedure Cardiology Kirk Silver MD [address] [place] [id number] (Wo rk) Scheduled Procedures Name Priority Associated [...] on filedocumented in this encounter Care Teams Product Manufacturing Professional Relationship Specialty Start Date End Date Anatoliy Jackson, PCP - General 05/14/12 Heath More PCP - Internal Medicine INTERNAL MEDICINE - 01/06/14 MD Andreas ENDOCRINOLOGY, ENDOCRINE CLINIC DIABETES & METABOLISM [place] [address] [place] [phone] Peter Gipson PCP - Urology 04/02/15 MD Jordan [facility] [address] [place] [address] Peter Aguiar Assigned Heart and 06/01/20 12/15/20 MD Ishan Vascular Provider [address] [place], [place] [phone] Peter Mcmullen Assigned Musculoskeletal 06/01/20 MD Mahendra Provider [address] [facility] [place], [place] [address] documented as of this encounter
--- OUTSIDE RECORDS SUMMARY | 2022-05-02 12:35 | XMS_ITS | Encounter Summary ---
:1950 Author Organization [place] Address [address] [facility] [place] [address] Care Team Providers Name Role Phone Anatoliy Jackson MD Primary Care Provider Heath More MD Unavailable Peter Gipson MD Unavailable Peter Mcmullen MD Unavailable Fidencio Solis MD Unavailable Encounter Details Date Type Department Care Team Description 12/19/[address] [facility] (de generative [facility] disease), lumbar (Primary Dx); Sports Medicine MD Mahendra Lumbar radicular pain; Clinic [address] Lumbar disc herniation with radiculopathy [address] [facility] [address] [place] [id number] Social History Tobacco Use Types Packs/Day Years [...] documented as of this encounter Progress Notes Peter Mcmullen MD - 12/19/2020 9:40 AM CDT Patient is a 70 year old who is being evaluated via a billable telephone visit. What phone number would you like to be contacted at? CELL How would you like to obtain your AVS? MYCHART Subjective Patient is a 70 year old who presents by phone call visit for the following: For followup for lumbar ERASTO and low back pain Wants to review lumbar MRI and make a plan HPI Review of Systems Constitutional, HEENT, cardiovascular, pulmonary, gi and gu systems are negative, except as otherwise noted. Objective Vitals: No vitals were obtained today due to virtual visit. Physical Exam healthy, alert and no distress PSYCH: Alert and oriented times 3; coherent speech, normal rate and volume, able to articulate logical thoughts, able to abstract reason, no tangential thoughts, no hallucinations or delusions His affect is normal RESP: No cough, no audible wheezing, able to talk in full sentences Remainder of exam unable to be completed due to telephone visits Assessment/Plan 70 yo male with low back pain and leg pains, due to disc herniations, improved, not resolved I independently reviewed the following imaging studies and discussed with patient: Lumbar MRI: shows ddd, disc herniations Discussed following up in 1-2 months Can consider repeat ERASTO Phone call duration: 15 minutes Phone call start: 9:55am Phone call end: 10:10am Dr Mcmullen documented in this encounter Plan of Treatment Upcoming Encounters Date Type Specialty Care Team Description 05/15/2022 Hospital Encounter Surgery Singh Torres MD [facility] [address] [facility] [address] [place] [address] (Wo rk) 05/15/2022 Surgery Surgery Neo Torres MD BLEPHAROPLASTY BILATERAL [facility] PTOSIS REPAIR BILATERAL [address] [place] [address] [place] [address] (Wo rk) 06/25/2022 Ancillary Procedure Cardiology Kirk Silver MD [address] [place] [id number] (Wo rk) Scheduled Procedures Name Priority Associated Diagnoses Date/Time REPAIR, PTOSIS, BILATERAL, Dermatochalas is 05/15/2022 7:30 AM CDT WITH BILATERAL BLEPHAROPLASTY 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 REPAIR, ECTROPION, EYE, Dermatochalasis 05/15/2022 7:30 AM CDT BILATERAL 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 documented as of this encounter Visit Diagnoses Diagnosis DDD (degenerative disc disease), lumbar - Primary Degeneration of lumbar or lumbosacral in tervertebral disc Lumbar radicular pain Thoracic or lumbosacral neuritis or radi culitis, unspecified Lumbar disc herniation with radiculopath y Displacement of lumbar intervertebral di sc without myelopathy 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 documented in this encounter Care Teams Drafting Supervisor Relationship Specialty Start Date End Date Anatoliy Jackson, PCP - General 05/14/12 Heath More PCP - Internal Medicine INTERNAL MEDICINE - 01/06/14 MD Andreas ENDOCRINOLOGY, [facility] DIABETES & METABOLISM OF [facility] [address] [place] [address] [place] [address] Peter Gipson PCP - Urology 04/02/15 MD Jordan [facility] [address] [place] [address] [address] [place], [place] [id number] Peter Mcmullen Assigned Musculoskeletal 06/01/20 MD Mahendra Provider [address] [place] [address] Fidencio Solis MD Assigned Heart and 12/16/20 02/21/21 [address], Vascular Provider [address] [place], [place] [address] documented as of this encounter
--- OUTSIDE RECORDS SUMMARY | 2022-05-02 12:35 | XMS_ITS | Encounter Summary ---
:1950 Author Organization [place] Address [address] [facility] [place] [address] Care Team Providers Name Role Phone Anatoliy Jackson MD Primary Care Provider Heath More MD Unavailable Peter Gipson MD Unavailable Peter Aguiar MD Unavailable Peter Mcmullen MD Unavailable Reason for Visit Reason Onset Date Comments Refill Request 12/11/2020 Amlodipine Refill Request 12/17/2020 Encounter Details Date Type Department Care Team Description 12/11/2020 Refill [facility] morrison, Refill Request Clinic Anu STILES (Amlodipine); Refill [address] [facility] [address] [place] [address] Request [address] [place] [address] [place], [place] [id number] (Wo rk) Social History Tobacco Use Types [...] [address] [place] [address] [place] [address] (Wo rk) 05/15/2022 Surgery Surgery Neo Torres MD BLEPHAROPLASTY BILATERAL [place] [facility], INTERNAL & [facility] PTOSIS REPAIR BILATERAL [address] [place] [address] [place], [place] [address] (Wo rk) 06/25/2022 Ancillary Procedure Cardiology Kirk Silver MD [address] [place] [phone] (Wo rk) Scheduled Procedures Name Priority Associated Diagnoses Date/Time REPAIR, PTOSIS, BILATERAL, Dermatochalas is 05/15/2022 7:30 AM CDT WITH BILATERAL BLEPHAROPLASTY 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 REPAIR, ECTROPION, EYE, Dermatochalasis 05/15/2022 7:30 AM CDT BILATERAL 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 documented as of this encounter Visit Diagnoses Diagnosis Coronary artery disease involving cantwell coronary artery of cantwell heart without angina pectoris Essential hypertension Unspecified essential hypertension 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 documented in this encounter Care Teams Body Wirer Relationship Specialty Start Date End Date Anatoliy Jackson PCP - General 05/14/12 Heath More PCP - Internal Medicine INTERNAL MEDICINE - 01/06/14 MD Andreas ENDOCRINOLOGY, ENDOCRINE CLINIC DIABETES & METABOLISM [facility] [address] [place] [address] [place] [phone] Peter Gipson PCP - Urology 04/02/15 MD Jordan [facility] [address] [facility] [address] [place] [address] Peter Aguiar Assigned Heart and 06/01/20 12/15/20 MD Ishan Vascular Provider [address] [place], [place] [address] Peter Mcmullen Assigned Musculoskeletal 06/01/20 MD Mahendra Provider [address] [place], [place] [id number] documented as of this encounter
--- OUTSIDE RECORDS SUMMARY | 2022-05-02 12:35 | XMS_ITS | Encounter Summary ---
:1950 Author Organization [place] Address [address] [facility] [place] [address] Care Team Providers Name Role Phone Anatoliy [...] Procedures XR Lumbar Epidural Injection Incl Imaging [address] [place] [id number] [place], [place] [address] [place] [address] Phone: Fax: Referral ID Status Reason Start Date Expiration Date Visits Requ ested Visits Authorized [id number] Closed 10/23/2020 10/23/2021 1 1 Reason for Visit Diagnostic Imaging XR (Routine) - Closed Specialty Diagnoses / Procedures Referred By Contact Refer red To Contact Radiology. Diagnoses Lumbar disc herniation with radiculopathy Peter Mcmullen Xray Rscc Procedures XR Lumbar Epidural Injection Incl Imaging [address] [place] [employer] [address] [place], [place] [address] [place] [address] Phone: Fax: Referral ID Status Reason Start Date Expiration Date Visits Requ ested Visits Authorized [id number] Closed 10/23/2020 10/23/2021 1 1 Encounter Details Date Type Department Care Team Description 11/07/2020 Hospital Encounter [facility] Peter Mcmullen mbar disc herniation [facility] MD Mahendra with radiculopathy [id number] [facility] [address] [facility] [address] [place] [address] [phone] Social History Tobacco Use Types Packs/Day Years [...] Sign Reading Time Taken Comments Blood Pressure 160/48 11/07/2020 11:43 AM CDT Pulse 44 11/07/2020 11:43 AM CDT Temperature - - Respiratory Rate [...] Take 1 tablet (5 mg) 90 tablet 2 01/202012/11/2020 MG tabletIndications: by mouth daily Coronary artery disease involving apache coronary artery of apache heart without angina pectoris, Essential hypertension aspirin 325 MG tablet Take 81 mg by mouth 0 02/18/2021 daily carvedilol (COREG) 12.5 Take 1 tablet (12.5 180 tablet 3 08/201912/14/2020 MG tabletIndications: mg) by mouth 2 times Coronary artery disease daily (with meals) involving apache coronary artery of apache heart without angina pectoris cloNIDine (CATAPRES) Take 0.1 mg by mouth 0 04/18/2021 0.1 MG tablet 2 times daily finasteride (PROSCAR) 5 Take 5 mg by mouth 0 02/18/2021 MG tablet gabapentin (NEURONTIN) TAKE 1 CAPSULE(100 90 capsule 1 08/2211/22/2020 100 MG MG) BY MOUTH THREE capsuleIndications: [...] Place 1 tablet (0.4 25 tablet 3 02/06/2020 (NITROSTAT) 0.4 MG mg) under the tongue sublingual every 5 minutes as tabletIndications: needed for chest pain Coronary artery disease (If pain is not involving apache relieved 5 minutes coronary artery of after 1st dose call apache heart without 911) angina pectoris rosuvastatin (CRESTOR) Take 1 tablet (40 mg) 90 tablet 3 01/03/2021 40 MG by mouth every tabletIndications: evening Coronary artery disease involving apache coronary artery of apache heart without angina pectoris, Hyperlipidemia LDL goal [...] documented as of this encounter Progress Notes Mango Banks PA-C - 11/07/2020 12:23 PM CDT RADIOLOGY PROCEDURE NOTE Patient name: Nikita Anderson : 1950 Pre-procedure diagnosis: Back pian Post-procedure diagnosis: Same Procedure Date/Time: November 07, 2020 12:23 PM Procedure: L5-S1 TLESI Estimated blood loss: None Specimen(s) collected with description: none The patient tolerated the procedure well with no immediate complications. Significant findings:none Noted to have sinus bradycardia. Rhythm taken. Pt has no symptoms. Elected to proceed. See imaging dictation for procedural details. Provider name: Mango Banks PA-C Body And Frame Man(s):None Storm Harmon RN - 11/07/2020 11:42 AM CDT Pt was in Radiology today for a right L5-S1 TFESI. Pt tolerated ortho procedure well. Pre procedure pain was 0 post procedure pain level 0.Procedure was completed by Pepito DAVILA. There were no complications during this procedure. Pt verbalized understanding of written and verbal instructions and left department in stable and satisfactory condition. There is no evidence of bleeding or any other complications upon discharge. documented in this encounter Plan of Treatment Upcoming Encounters Date Type Specialty Care Team Description 05/15/2022 Hospital Encounter Surgery Singh Torres MD [facility] [address] [place] [address] [place] [address] (Wo rk) 05/15/2022 Surgery Surgery Neo Torres MD BLEPHAROPLASTY BILATERAL [place] [facility], INTERNAL & SURGEONS [facility] PTOSIS REPAIR BILATERAL [address] [place] [address] [place] [address] (Wo rk) 06/25/2022 Ancillary Procedure Cardiology Kirk Silver MD [address] [place] [address] (Wo rk) Scheduled Procedures Name Priority Associated [...] Priority Date/Time Associated Diagnosis Comme nts XR LUMBAR EPIDURAL Routine 11/07/2020 12:30 Lumbar disc hernia tion Results for this INJECTION INCL PM CDT with radiculopathy procedu re are in IMAGING the results section. documented in this encounter Results XR Lumbar Epidural Injection [...] local anesthesia. ??Using f luoroscopic guidance, a Estancia needle was advanced into the epidural sp [...] the original. XR LUMBAR EPIDURAL INJECTION INCL REVA G 11/07/2020 12:30 PM History: L5-S1 degenerative [...] local anesthesia. 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 dexamethasone PF (DECADRON) Given by Other 11/07/2020 12:26 PM CDT 20 mg injection 20 mg Clinician 20 mg, EPIDURAL, ONCE, On Thu11/07/20 at 1200, For 1 dose, For IV doses 1-20 mg, give IV Push undiluted over 1 minute. iopamidol (ISOVUE-M 200) Given by Other Clinician 11/07/2020 12:27 PM CDT 1 mL solution 10 mL 10 mL, EPIDURAL, ONCE, On Thu11/07/20 at 1200, For 1 dose lidocaine (PF) (XYLOCAINE) Given by Other Clinician 11/07/2020 1 2:26 PM CDT 3 mLs 1 % injection 3 mL 3 mL, EPIDURAL, ONCE, On Thu11/07/20 at 1200, For 1 dose lidocaine (PF) (XYLOCAINE) 1 Given by Other 11/07/2020 12:26 PM CDT 5 mLs % injection 5 mL Clinician 5 mL, Subcutaneous, ONCE, On Thu11/07/20 at 1200, For 1 dose lidocaine (PF) (XYLOCAINE) 1 % injection Starting on Thu11/07/20 at 1152, For 1 d ose, Storm Harmon: cabinet override documented in this encounter Care Teams Defense Attorney Relationship Specialty Start Date End Date Anatoliy Jackson PCP - General 05/14/12 Heath More PCP - Internal Medicine INTERNAL MEDICINE - 01/06/14 MD Andreas ENDOCRINOLOGY, ENDOCRINE CLINIC DIABETES & METABOLISM [place] [id number] [facility] [address] [place] [address] Peter Gipson PCP - Urology 04/02/15 MD Jordan [facility] [address] [place] [address] 450 [place] [address] Peter Aguiar Assigned Heart and 06/01/20 12/15/20 MD Ishan Vascular Provider [address] [place] [address] Peter Mcmullen Assigned Musculoskeletal 06/01/20 MD Mahendra Provider [address] [place] [address] documented as of this encounter
--- OUTSIDE RECORDS SUMMARY | 2022-05-02 12:35 | XMS_ITS | Encounter Summary ---
:1950 Author Organization [place] Address [address] [facility] [place] [address] Care Team Providers Name Role Phone Anatoliy Jackson MD Primary Care Provider Heath More MD Unavailable Peter Gipson MD Unavailable Peter Aguiar MD Unavailable Peter Mcmullen MD Unavailable Reason for Visit Reason Comments RECHECK f/u after hip injection. pt stated he's not been as active recently, but pain is also better. Encounter Details Date Type Department Care Team Description 11/20[facility]2020 [facility] rad[facility] (Primary Dx); Sports Medicine Clinic Konstantin Mccray Lumbar disc herniation with radiculopath y; [place] [address] DDD (degenerative disc disea se), lumbar [address] [facility] [address] [place], [place] [address] Social History Tobacco Use Types Packs/Day [...] encounter Progress Notes Peter Mcmullen MD - 11/20/2020 1:20 PM CDT Nikita is a 70 year old who is being evaluated via a billable telephone visit. What phone number would you like to be contacted at? cell How would you like to obtain your AVS? MyChart Subjective Nikita is a 70 year old who presents to followup for lumbar injection which he had recently He feels like it is helping with his pain and symptoms Doing better HPI Review of Systems Constitutional, HEENT, cardiovascular, [...] to be completed due to telephone visits \Assessment/plan 70 yo male with lumbar ddd, disc herniation, radicular pain, improving Reviewed ERASTO Cont. HEP Cont. Medications as written F/u in 1-2 months Phone call duration: 15 minutes Phone call start: 1:20pm Phone call end: 1:35pm Dr Mcmullen documented in this encounter Nursing Notes Ivanna Marie - 11/20/2020 1:20 PM CDT Reason For Visit: Chief Complaint Patient presents with ??? RECHECK f/u after hip injection. pt stated he's not been as active recently, but pain is also better. There were no vitals taken for this visit. Pain Assessment Patient Currently in Pain: Denies Primary Pain Location: Hip Ivanna Marie ATC documented in this encounter Plan of Treatment Upcoming Encounters Date Type Specialty Care Team Description 05/15/2022 Hospital Encounter Surgery Singh Torres MD [facility] [address] [place] [address] (Wo rk) 05/15/2022 Surgery Surgery Neo Torres MD BLEPHAROPLASTY BILATERAL [place] [facility], INTERNAL & [facility] PTOSIS REPAIR BILATERAL [address] [place] [address] [place] [address] (Wo rk) 06/25/2022 Ancillary Procedure Cardiology Kirk Silver MD [address] [place] [address] (Wo rk) Scheduled Procedures Name Priority Associated Diagnoses Date/Time REPAIR, PTOSIS, BILATERAL, Dermatochalas is 05/15/2022 7:30 AM CDT WITH BILATERAL BLEPHAROPLASTY 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 REPAIR, ECTROPION, EYE, Dermatochalasis 05/15/2022 7:30 AM CDT BILATERAL 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 documented as of this encounter Visit Diagnoses Diagnosis Lumbar radicular pain - Primary Thoracic or lumbosacral neuritis or radi culitis, unspecified Lumbar disc herniation with radiculopath y Displacement of lumbar intervertebral di sc without myelopathy DDD (degenerative disc disease), lumbar Degeneration of lumbar or lumbosacral in tervertebral disc 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 documented in this encounter Care Teams Housekeeper Manager Relationship Specialty Start Date End Date Anatoliy Jackson, PCP - General 05/14/12 Heath More PCP - Internal Medicine INTERNAL MEDICINE - 01/06/14 MD Andreas ENDOCRINOLOGY, ENDOCRINE CLINIC DIABETES & METABOLISM OF [facility] [address] [place] [address] [place] [phone] Peter Gipson PCP - Urology 04/02/15 MD Jordan [facility] [address] [place] [address] [address] [place] [address] Peter Aguiar Assigned Heart and 06/01/20 12/15/20 MD Ishan Vascular Provider [address] [place] [address] Peter Mcmullen Assigned Musculoskeletal 06/01/20 MD Mahendra Provider [address] [place], [place] [address] documented as of this encounter
--- OUTSIDE RECORDS SUMMARY | 2022-05-02 12:35 | XMS_ITS | Encounter Summary ---
:1950 Author Organization [place] Address [address] [facility] [address] Care Team Providers Name Role Phone Anatoliy Jackson MD Primary Care Provider Heath More MD Unavailable Peter Gipson MD Unavailable Peter Aguiar MD Unavailable Peter Mcmullen MD Unavailable Reason for Visit Reason Comments Medication Refill Encounter Details Date Type Department Care Team Description 11/22/2020 Refill [facility] Peter Reyes, Medication Refill [place] [address] [place] [address] [place], [place] [phone] [place], [place] [address] [place], [place] [phone] (Wo rk) Social History Tobacco Use Types [...] 05/15/2022 Hospital Encounter Surgery Singh Torres MD [facility] [address] [place] [address] (Wo rk) 05/15/2022 Surgery Surgery Neo Torres MD BLEPHAROPLASTY BILATERAL [facility] L IDS, INTERNAL & SURGEONS PA PTOSIS REPAIR BILATERAL [address] [place] [address] (Wo rk) 06/25/2022 Ancillary Procedure Cardiology Kirk Silver MD [address] [place] [address] (Wo rk) Scheduled Procedures Name Priority Associated [...] ptosis documented in this encounter Care Teams Medicine Technologist Relationship Specialty Start Date End Date Anatoliy Jackson, PCP - General 05/14/12 Heath More PCP - Internal Medicine INTERNAL MEDICINE - 01/06/14 MD Andreas ENDOCRINOLOGY, ENDOCRINE CLINIC DIABETES & METABOLISM OF [facility] [address] [place] [address] [place] [phone] Peter Gipson PCP - Urology 04/02/15 MD Jordan [facility] [address] [facility] [address] [place] [address] Peter Aguiar Assigned Heart and 06/01/20 12/15/20 MD Ishan Vascular Provider [address] [place] [address] Peter Mcmullen Assigned Musculoskeletal 06/01/20 MD Mahendra Provider [address] [place], [place] [address] documented as of this encounter
--- OUTSIDE RECORDS SUMMARY | 2022-05-02 12:36 | XMS_ITS | Encounter Summary ---
:1950 Author Organization [place] Address [address] [facility] [place] [address] Care Team Providers Name Role Phone Anatoliy Jackson MD Primary Care Provider Heath More MD Unavailable Peter Gipson MD Unavailable Encounter Details Date Type Department Care Team Description 12/30/2019 Travel Social History Tobacco Use Types Packs/Day [...] been in contact with No / Unsure 12/30/2019 1:05 PM CDT someone who was confirmed or 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 documented as of this encounter Plan of Treatment Upcoming Encounters Date Type Specialty Care Team Description 05/15/2022 Hospital Encounter Surgery Singh Torres MD [facility] [address] [place] [address] [place] [address] (Wo rk) 05/15/2022 Surgery Surgery Neo Torres MD BLEPHAROPLASTY BILATERAL [facility] [facility]S, INTERNAL & SURGEONS PA PTOSIS REPAIR BILATERAL [address] [place] [address] [place] [address] (Wo rk) 06/25/2022 Ancillary Procedure Cardiology Kirk Silver MD [address] [place] [address] (Wo rk) Scheduled Procedures Name Priority Associated [...] on filedocumented in this encounter Care Teams Dock Hand Relationship Specialty Start Date End Date Anatoliy Jackson MD PCP - General 05/14/12 Heath More PCP - Internal Medicine INTERNAL MEDICINE - 01/06/14 MD Andreas ENDOCRINOLOGY, ENDOCRINE CLINIC OF DIABETES & METABOLISM [facility] [address] [place] [address] [place] [phone] Peter Gipson PCP - Urology 04/02/15 MD Jordan [facility] [address] [place] [id number] documented as of this encounter
--- OUTSIDE RECORDS SUMMARY | 2022-05-02 12:36 | XMS_ITS | Encounter Summary ---
:1950 Author Organization [place] Address [address] [facility] [place] [address] Care Team Providers Name Role Phone Anatoliy Jackson MD Primary Care Provider Heath More MD Unavailable Peter Gipson MD Unavailable Encounter Details Date Type Department Care Team Description 03/30/2020 [facility] Konstantin Mccray), [place] [address] [address] [facility] (Primary Dx) [address] [place] [address] [address] [place] [address] [id number] Social History Tobacco Use Types Packs/Day Years [...] [address] [place] [address] (Wo rk) 05/15/2022 Surgery Surgery Neo Torres MD BLEPHAROPLASTY BILATERAL [facility], INTERNAL & SURGEONS [place] PTOSIS REPAIR BILATERAL [address] [place] [address] (Wo rk) 06/25/2022 Ancillary Procedure Cardiology Kirk Silver MD [address] [place] [id number] (Wo rk) Scheduled Procedures Name Priority Associated [...] ptosis documented in this encounter Care Teams Clam Bed Worker Relationship Specialty Start Date End Date Anatoliy Jackson MD PCP - General 05/14/12 Heath More PCP - Internal Medicine INTERNAL MEDICINE - 01/06/14 MD Andreas ENDOCRINOLOGY, [facility]AB[facility] [address] [place] [phone] Peter Gipson PCP - Urology 04/02/15 MD Jordan [facility] [address] [place] [address] documented as of this encounter
--- OUTSIDE RECORDS SUMMARY | 2022-05-02 12:36 | XMS_ITS | Encounter Summary ---
:1950 Author Organization [place] Address [address] [facility] [place] [address] Care Team Providers Name Role Phone Anatoliy Jackson MD Primary Care Provider Heath More MD Unavailable Peter Gipson MD Unavailable Reason for Visit Reason Comments Coronary Artery Disease Encounter Details Date Type Department Care Team Description 12/13/2019 Virtual Visit [facility] Peter Lopez Coronary artery disease involving eastern [place] coronary artery of [place] heart without angina pectoris (Primary Dx); [facility] Clinic Anu Olmstead MD Hyperlipidemia LDL goal <70; [address]/P co ronary artery stent placement; [address] Essential hypertension; [place] [address] [place] [address] Coronary artery chronic total occlusion [phone] Social History Tobacco Use Types Packs/Day Years [...] Comment: beer and wine, every couple days 08/31/2 015 Sex Assigned at Date Recorded Male 03/12/2021 12:11 PM CDT COVID-19 Exposure Response Date Recorded In the last month, have you been in contact with No / Unsure 12/13/2019 11:08 AM CDT someone who was confirmed or 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 documented as of this encounter Last Filed Vital Signs Vital Sign Reading Time Taken Comments Blood Pressure - - Pulse - - Temperature - - Respiratory Rate - - Oxygen Saturation - - Inhaled Oxygen Concentration - - Weight 102.1 kg (225 lb) 12/13/2019 10:47 AM CDT Height 180.3 cm (5' 11) 12/13/2019 10:47 AM CDT Body Mass Index 31.38 12/13/2019 10:47 AM CDT documented in this encounter Progress Peter Landeros MD - 12/13/2019 11:15 AM CDT Nikita Anderson is a 69 year old male who is being evaluated via a billable video visit. The patient has been notified of following: This video visit will be conducted via a call between you and your physician/provider. We have found that certain health care needs can be provided without the need for an in-person physical exam. This service lets us provide the care you need with a video conversation. If a prescription is necessarywe can send it directly to your pharmacy. If lab work is needed we can place an order for that and you can then stop by our lab to have the test done at a later time. Video visits are billed at different rates depending on your insurance coverage. Please reach out toyour insurance provider with any questions. If during the course of the call the physician/provider feels a video visit is not appropriate, you will not be charged for this service. Patient has given verbal consent for Video visit? Yes How would you like to obtain your AVS? Paige Patient would like the video invitation sent by: Text to cell phone: [phone] Will anyone else be joining your video visit? No Bp:N/A Pulse:N/A Wt:225.0lb Review Of Systems Skin: NEGATIVE Eyes:Ears/Nose/Throat: NEGATIVE Respiratory: NEGATIVE Cardiovascular:NEGATIVE Gastrointestinal: NEGATIVE Genitourinary:NEGATIVE Musculoskeletal: Arthritis Neurologic: NEGATIVE Psychiatric: NEGATIVE Hematologic/Lymphatic/Immunologic: NEGATIVE Endocrine: Diabetic Stephanie Escudero RMA HPI and Plan: This 69-year-old gentleman is seen via video visit due to pandemic restrictions in follow-up of his coronary disease, angina pectoris, and?? complex circumflex stenting (April 09, 2015). He has comorbidities of significant diabetes, hypertension, dyslipidemia, chronic renal insufficiency stage III. ?? The last 6 months he has been clinically stable. ?? it has been a long winter and in has been more sedentary. He is doing more activity now and when he walks briskly with his his right hip bothershim but no chest discomfort, dyspnea, unusual fatigue, none of the calf pain he had a few years ago. When he works in the yard all night he has hip bothers him also. But right now that the only limiting symptoms he has. He is not having the unusual fatigue and shortness of breath that he had prior to coronary stenting in 2014. He is not having other chest discomfort, denies orthopnea, edema, PND . Denies palpitations dizziness or syncope. ??He denies orthostasis, palpitations, myalgias or muscle weakness. Denies focal neurologic symptoms. Does have significant lower extremity peripheral neuropathy related to his diabetes. 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 Blood pressure wellcontrolled in the 120s systolic. Hemoglobin A1c 7.6%. Electrolytes stable. Renal function stable to slightly improved. Does not appear he is had lipids since 2018. Last LDL was around 44. He had developed limiting and progressive angina in 2014, mainly manifested by dyspnea on exertion and exertional fatigue with declining functional status.?? Angiography in the spring showed circumflex disease as well as proximal right PDA disease although the right system was fairly modest caliber.?? The circumflex system was large and was essentially codominant with several large distal posterolateral marginals. He did not improve on multiple medical therapy, and underwent stenting of the ostial circumflex, and mid circumflex and second obtuse marginal bifurcation lesion.? Prior to prostate surgery in 2016 surgery??a stress study was abnormal. ??He underwent repeat angiography??a year after stenting. ??This showed that the proximal and mid circumflex stents were widely patent.?The right PDA lesion was 50-60%??did not appear significant.?The??OM2 bifurcation lesionstent was totally occluded with left to left collaterals.?As noted above he's been??without ischemic symptoms during his surgery and during his current activity??on medical therapy. Exam- ?General: no apparent distress, normal body habitus, sitting upright. ENT/Mouth: membranes moist, no nasal discharge. Normal head shape, no apparent injury or laceration. Eyes: no scleral icterus, normal conjunctivae. No observed jaundice. Neck: no apparent neck swelling. Chest/Lungs: No breathing difficulty while speaking. No audible wheezing. No cough during conversation. Cardiovascular: No obviously elevated jugular venous pressure. Extremities: no apparent upper extremity cyanosis. Skin: no xanthelasma. Head and neck grossly clear. Neurologic: Alert and oriented. Good memory. Pupils equal. EOM intact. Symmetrical facies and fluentspeech. Upper extremities and head are without focal motor loss findings Psychiatric: Alert and oriented x3, calm demeanor The rest of the comprehensive physical examination is deferred due to public health emergency video visit restrictions. ? Impression/plan 1-history of angina resolved after stenting. Does have a residual modest obtuse marginal chronic total occlusion with collaterals but currently without angina..? With his current activity level he is not having significant angina. The residual unrevascularized territories are very small first obtuse marginal which is too small to stent, and the occluded OM 2 which is modest sized. ??Would continuemedical therapy as long the symptoms controlled .?? 2-coronary artery disease. Status post multiple circumflex stents, one of which was ostial. ?? Coronary angiogram in 2016 performed 1 year post-circumflex stenting, showed widely patent ostial stent with no disease in the left main. ??Mid circumflex stent widely patent with large posterior lateral systems vessels supplied by this. ??Modest second marginal chronically occluded Normal ejection fraction no heart failure or arrhythmia symptoms. Blood pressure and lipids well controlled. Not smoking. Recent diabetes control better. ??Lipids well controlled.?? Exercise/activity fair, limited by hip pain. ?? Overall risk factor intervention is going well.?He described pretty good Mediterranean diet. I did discuss additional benefits of weight loss. ?? 3-dyslipidemia, at intense goal and is tolerating statin. This will be continued. Needs follow-up lipid profile. Recommended to get it because he has an upcoming visit with Dr. Hurley ?? 4-hypertension, very well controlled. Currently without orthostatic symptoms ?? 5-intermittent claudication of the calves. Has not returned after doing a walking program few years ago. Continue to emphasize importance of the walking program to the extent that his hip would not help. ? I recommended continuing his current regimen. ?? I have renewed his cardiovascular and blood pressure medications. I recommended a follow-up in a year. Orders Placed This Encounter Procedures ??? Follow-Up with Cardiac Advanced Practice Provider Orders Placed This Encounter Medications ??? rosuvastatin (CRESTOR) 40 MG tablet Sig: Take 1 tablet (40 mg) by mouth every evening Dispense: 90 tablet Refill: 3 ??? lisinopril-hydrochlorothiazide (ZESTORETIC) 20-12.5 MG tablet Sig: Take 1 tablet by mouth daily Dispense: 90 tablet Refill: 3 Medications Discontinued During This Encounter Medication Reason ??? rosuvastatin (CRESTOR) 40 MG tablet Reorder ??? lisinopril-hydrochlorothiazide (PRINZIDE/ZESTORETIC) 20-12.5 MG tablet Reorder Encounter Diagnoses Name Primary? Coronary artery disease involving eastern cherokee coronary artery of eastern cherokee heart without angina pectorisYes ? ? Hyperlipidemia LDL goal <70 ??? S/P coronary artery stent placement ??? Essential hypertension ??? Coronary artery chronic total occlusion CURRENT MEDICATIONS: Current Outpatient Medications Medication Sig [...] mg by mouth 2 times daily ??? finasteride (PROSCAR) 5 MG tablet Take 5 mg by mouth ??? GABAPENTIN PO Take 300 mg by mouth as needed ??? glucosamine-chondroitin 500-400 MG CAPS per capsule Take 1 capsule by mouth daily ??? Insulin Lispro (HUMALOG SC) ??? INSULIN LISPRO (HUMAN) 100 UNIT/ML SC SOLN As directed One month 0 ??? LANTUS 100 UNIT/ML SC SOLN as directed 100 0 ??? lisinopril-hydrochlorothiazide (ZESTORETIC) 20-12.5 MG tablet Take 1 tablet by mouth daily 90 tablet 3 ??? nitroGLYcerin (NITROSTAT) 0.4 MG sublingual tablet Take 1 tab under the tongue for chest pain, may repeat every 5 minutes x2. If pain not relieved then seek medical attention 25 tablet 3 ??? ONE TOUCH ULTRA TEST STRP as directed 100 prn ??? rosuvastatin (CRESTOR) 40 MG tablet Take 1 tablet (40 mg) by mouth every evening 90 tablet 3 ??? sertraline (ZOLOFT) 50 MG tablet Take 50 mg by mouth daily ??? SYRINGE B-D MICRO FINE 1/2 CC SYRINGES as directed 100 prn ??? traZODone (DESYREL) 50 MG tablet Take 50 mg by mouth At Bedtime ??? Turmeric 500 MG CAPS ALLERGIES Allergies Allergen Reactions ??? Atorvastatin Other (See Comments) Congestion ??? Epinephrine Palpitations PAST MEDICAL HISTORY: Past Medical History: Diagnosis Date ??? Angina [...] uncontrolled(250.60) Abstracted 01/20/02 ??? Unspecified essential hypertension PAST SURGICAL HISTORY: Past Surgical History: Procedure Laterality Date ??? [...] 0.79, 70-80% OM3 -FFR 0.77, 70-80% OM4, FAMILY HISTORY: Family History Problem Relation Age of Onset ??? Hypertension Mother ??? Diabetes Maternal Grandmother ??? Hypertension Maternal Grandmother ??? Hypertension Maternal Grandfather SOCIAL HISTORY: Social History Socioeconomic History ??? Marital status: Spouse name: Not on file ??? Number of children: Not on file ??? Years of education: Not on file ??? Highest education level: Not on file Occupational History ??? Not on file Social Needs ??? Financial resource strain: Not on file ??? Food insecurity Worry: Not on file Inability: Not on file ??? Transportation needs Medical: Not on file Non-medical: Not on file Tobacco Use ??? Smoking status: Never Smoker ??? Smokeless tobacco: Never Used Substance and Sexual Activity ??? Alcohol use: Yes Alcohol/week: 0.0 standard drinks Comment: beer and wine, every couple days ??? Drug use: No ??? Sexual activity: Not on file Lifestyle ??? Physical activity Days per week: Not on file Minutes per session: Not on file ??? Stress: Not on file Relationships ??? Social connections Talks on phone: Not on file Gets together: Not on file Attends church service: Not on file Active member of club or organization: Not on file Attends meetings of clubs or organizations: Not on file Relationship status: Not on file ??? Intimate partner violence Fear of current or ex partner: Not on file Emotionally abused: Not on file Physically abused: Not on file Forced sexual activity: Not on file Other Topics Concern ??? Parent/sibling w/ CABG, [place] or angioplasty before 65F 55M? Not Asked [...] Self-Exams Not Asked Social History Narrative ??? Not on file CC MD GWEN Toussaint [facility] [address] [place] [address] Video-Visit Details Type of service: Video Visit Video Start Time: 11:26 Video End Time: 11:46 Originating Location (pt. Location): Home Distant Location (provider location): [facility]-home remote Platform used for Video Visit: [employer] Peter Aguiar MD documented in this encounter Plan of Treatment Upcoming Encounters Date Type Specialty Care Team Description 05/15/2022 Hospital Encounter Surgery Singh Torres MD [facility] [address] [place] [address] (Wo rk) 05/15/2022 Surgery Surgery Neo Torres MD BLEPHAROPLASTY BILATERAL [place] [facility], INTERNAL & [facility] [place] PTOSIS REPAIR BILATERAL [address] [place] [address] (Wo rk) 06/25/2022 Ancillary Procedure Cardiology Kirk Silver MD [address] [place] [address] (Wo rk) Scheduled Procedures Name Priority Associated Diagnoses Date/Time REPAIR, PTOSIS, BILATERAL, Dermatochalas is 05/15/2022 7:30 AM CDT WITH BILATERAL BLEPHAROPLASTY 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 REPAIR, ECTROPION, EYE, Dermatochalasis 05/15/2022 7:30 AM CDT BILATERAL 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 documented as of this encounter Visit Diagnoses Diagnosis Coronary artery disease involving eastern [place] coronary artery of eastern [place] heart without angina pectoris - Primary Hyperlipidemia LDL goal <70 Other and unspecified hyperlipidemia S/P coronary artery stent placement Postsurgical percutaneous transluminal c oronary angioplasty status Essential hypertension Unspecified essential hypertension Coronary artery chronic total occlusion Coronary atherosclerosis of unspecified type of vessel, eastern [place] or graft 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
--- OUTSIDE RECORDS SUMMARY | 2022-05-02 12:36 | XMS_ITS | Encounter Summary ---
:1950 Author Organization [place] Address [address] [facility] [place] [address] Care Team Providers Name Role Phone Anatoliy Jackson MD Primary Care Provider Heath More MD Unavailable Peter Gipson MD Unavailable Encounter Details Date Type Department Care Team Description 11/25/2019 Telephone [facility] Peter Mcmullen, [address] [facility] 4th Floor [phone] [place] [address] (Wo rk) Social History Tobacco Use Types [...] Notes Telephone Encounter - Ivanna Marie - 11/25/2019 8:47 AM CDT Left VM to change appointment to video/telephone appointment documented in this encounter Plan of Treatment Upcoming Encounters Date Type Specialty Care Team Description 05/15/2022 Hospital Encounter Surgery Singh Torres MD [facility] [address] [place] [address] (Wo rk) 05/15/2022 Surgery Surgery Neo Torres MD BLEPHAROPLASTY BILATERAL [place] [facility], INTERNAL & SURGEONS [facility] PTOSIS REPAIR BILATERAL [address] [place] [address] (Wo rk) 06/25/2022 Ancillary Procedure Cardiology Kirk Silver MD [address] [place] [id number] (Wo rk) Scheduled Procedures Name Priority Associated [...] on filedocumented in this encounter Care Teams Junior Software Developer Relationship Specialty Start Date End Date Anatoliy Jackson MD PCP - General 05/14/12 Heath More PCP - Internal Medicine INTERNAL MEDICINE - 01/06/14 MD Andreas ENDOCRINOLOGY, ENDOCRINE [facility] [address] [place] [phone] Peter Gipson PCP - Urology 04/02/15 MD Jordan [facility] [address] [address] documented as of this encounter
--- OUTSIDE RECORDS SUMMARY | 2022-05-02 12:36 | XMS_ITS | Encounter Summary ---
:1950 Author Organization [place] Address [address] [facility] [place] [address] Care Team Providers Name Role Phone Anatoliy Jackson MD Primary Care Provider Heath More MD Unavailable Peter Gipson MD Unavailable Reason for Visit Reason Onset Date Comments Refill Request 03/15/2020 refills x1 yr -amlod ipine Encounter Details Date Type Department Care Team Description 03/15/2020 Refill [facility] Peter Ref ill Request (refills Clinic Anu Olmstead MD x1 yr -amlodipine) [address] [place] [address] [place] [id number] (Wo rk) Social History Tobacco Use Types [...] & [facility] [address] [place] [address] (Wo rk) 05/15/2022 Surgery Surgery Neo Torres MD BLEPHAROPLASTY BILATERAL [place] [facility], INTERNAL & SURGEONS [place] PTOSIS REPAIR BILATERAL [address] [place] [address] (Wo rk) 06/25/2022 Ancillary Procedure Cardiology Kirk Silver MD [address] [place] [address] (Wo rk) Scheduled Procedures Name Priority Associated Diagnoses Date/Time REPAIR, PTOSIS, BILATERAL, Dermatochalas is 05/15/2022 7:30 AM CDT WITH BILATERAL BLEPHAROPLASTY 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 REPAIR, ECTROPION, EYE, Dermatochalasis 05/15/2022 7:30 AM CDT BILATERAL 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 documented as of this encounter Visit Diagnoses Diagnosis Coronary artery disease involving [place] coronary artery of [place] heart without angina pectoris Essential hypertension Unspecified essential hypertension 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
--- OUTSIDE RECORDS SUMMARY | 2022-05-02 12:36 | XMS_ITS | Encounter Summary ---
:1950 Author Organization [place] Address [address] [facility] [place] [address] Care Team Providers Name Role Phone Anatoliy Jackson MD Primary Care Provider Heath More MD Unavailable Peter Gipson MD Unavailable Reason for Visit Reason Onset Date Comments Call Back 03/30/2020 Medication refill Encounter Details Date Type Department Care Team Description 03/30/2020 Telephone [facility] Peter Mcmullen Call Back (Medication Clinic MD Mahendra refill) [address] [place] [address] [phone] Social History Tobacco Use Types Packs/Day Years [...] Notes Telephone Encounter - Ivanna Marie - 03/30/2020 2:54 PM CDT Called and informed pt that Rx was filled and sent to [facility] in [place]. Telephone Encounter - Zoraida Villalta - 03/30/2020 2:02 PM CDT [facility] Phone Message May a detailed message be left on voicemail: yes Reason for Call: Other: Pt stated that at his aunts appt he spoke to Dr. Mcmullen about his medication and was told he could get 100 mg of gabapatin instead of 300 and would like that sent over to the pharmacy Action Taken: Message routed to: [facility] Ortho Travel Screening: Not Applicable documented in this encounter Plan of Treatment Upcoming Encounters Date Type Specialty Care Team Description 05/15/2022 Hospital Encounter Surgery Singh Torres MD [facility] [address] [place] [address] (Wo rk) 05/15/2022 Surgery Surgery Neo Torres MD BLEPHAROPLASTY BILATERAL [place] [facility], INTERNAL & SURGEONS [facility] PTOSIS REPAIR BILATERAL [address] [place] [address] (Wo rk) 06/25/2022 Ancillary Procedure Cardiology Kirk Silver MD [address] [place] [address] (Rosalva rk) Scheduled Procedures Name Priority Associated [...] on filedocumented in this encounter Care Teams Infrastructure Consultant Relationship Specialty Start Date End Date Anatoliy Jackson MD PCP - General 05/14/12 Heath More PCP - Internal Medicine INTERNAL MEDICINE - 01/06/14 MD Andreas ENDOCRINOLOGY, [facility] [address] [phone] Peter Gipson PCP - Urology 04/02/15 MD Jordan [facility] [address] [place] [address] documented as of this encounter
--- OUTSIDE RECORDS SUMMARY | 2022-05-02 12:36 | XMS_ITS | Encounter Summary ---
:1950 Author Organization [place] Address [address] [facility] [place] [address] Care Team Providers Name Role Phone Anatoliy Jackson MD Primary Care Provider Heath Moer MD Unavailable Peter Gipson MD Unavailable Reason for Visit Diagnostic Imaging XR (Routine) - Closed Specialty Diagnoses / Procedures Referred By Contact Refer red To Contact Diagnoses Bilateral hip pain Peter Mcmullen MD Procedures XR Hip Bilateral G/E [address] [place], [place] [address] Referral ID Status Reason Start Date Expiration Date Visits Requ ested Visits Authorized [id number] Closed 10/06/2019 10/05/2020 1 1 Encounter Details Date Type Department Care Team Description 10/06/2019 Ancillary Procedure [facility] Arie Mcmullen Bilateral hip pain Mackenzie Mccray MD [address] [facility] [address] 4th Floor [address] [facility], [address] [place] [address] [phone] Social History Tobacco Use Types Packs/Day Years [...] 05/15/2022 Hospital Encounter Surgery Singh Torres MD [facility] [address] [place] [address] (Wo rk) 05/15/2022 Surgery Surgery Neo Torres MD BLEPHAROPLASTY BILATERAL [facility] PTOSIS REPAIR BILATERAL [address] [place] [address] (Wo rk) 06/25/2022 Ancillary Procedure Cardiology Kirk Silver MD [address] [place] [address] (Wo rk) Scheduled Procedures Name Priority Associated [...] Priority Date/Time Associated Diagnosis Comme nts XR HIP BILATERAL 2 Routine 10/06/2019 4:23 PM Bilateral hip pa in Results for this VIEWS EACH HOSTESS HOST procedure are i n the results section. documented in this encounter Results XR Hip Bilateral G/E 2 vw (10/06/2019 4:23 PM HOSTESS HOST) Anatomical Region Laterality Modality Hip Bilateral Computed Radiography Specimen (Source) Anatomical Location Collection Method / Collectio n Time Received Time / Laterality Volume Impressions 10/07/2019 8:34 AM HOSTESS HOST Impression: 1. No acute osseous abnormality. 2. Mild bilateral hip degenerative dominguez es without substantial joint space loss. FADI PINEDA Narrative 10/07/2019 8:34 AM HOSTESS HOST 1 view of pelvis and 1 views bilateral hip radiographs 10/07/2019 8:31 AM History: Bilateral hip pain; Bilateral h ip pain Comparison: None available. Findings: AP view of pelvis, frog leg lateral ??vi ews of the each hip were obtained. Right hip: No acute osseous abnormality. ?? Loss of normal sphericity of femoral hea d without substantial joint space loss. Small ossicle lateral to the acetabulum, may be os acetabuli. Left hip: No acute osseous abnormality. ?? Loss of normal sphericity of femoral hea d without substantial joint space loss. Others: Enthesopathic changes of pelvis and troc hanters. Degenerative changes of the visualized lumbar spine. Pelvic phlebolith. Small focus of sclero sis in the left intertrochanteric region, nonspecific ma y be bone island. Procedure Note Fadi Pineda MD - 10/07/2019Forma tting of this note might be different from the original. 1 view of pelvis and 1 views bilateral h ip radiographs 10/07/2019 8:31 AM History: Bilateral hip pain; Bilateral h ip pain Comparison: None available. Findings: AP view of pelvis, frog leg lateral view s of the each hip were obtained. Right hip: No acute osseous abnormality. Loss of normal sphericity of femoral hea d without substantial joint space loss. Small ossicle lateral to the acetabulum, may be os acetabuli. Left hip: No acute osseous abnormality. Loss of normal sphericity of femoral hea d without substantial joint space loss. Others: Enthesopathic changes of pelvis and troc hanters. Degenerative changes of the visualized lumbar spine. Pelvic phlebolith. Small focus of sclero sis in the left intertrochanteric region, nonspecific ma y be bone [place]. Impression: 1. No acute osseous abnormality. 2. Mild bilateral hip degenerative dominguez es without substantial joint space loss. 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
--- OUTSIDE RECORDS SUMMARY | 2022-05-02 12:36 | XMS_ITS | Encounter Summary ---
:1950 Author Organization [place] Address [address] [facility] [place] [address] Care Team Providers Name Role Phone Anatoliy Jackson MD Primary Care Provider Heath More MD Unavailable Peter Gipson MD Unavailable Reason for Visit Reason Onset Date Comments Refill Request 12/05/2019 Amlodipine Encounter Details Date Type Department Care Team Description 12/05/2019 Refill [facility] Peter Aguiar Ref ill Request Clinic Anu Olmstead MD (Amlodipine) [address] [place] [address] [address] [place] [phone] [place] [address] (Wo rk) Social History Tobacco Use [...] 05/15/2022 Hospital Encounter Surgery Singh Torres MD [facility] [address] [place] [address] (Wo rk) 05/15/2022 Surgery Surgery Neo Torres MD BLEPHAROPLASTY BILATERAL [facility] PTOSIS REPAIR BILATERAL [address] [place] [id number] (Wo rk) 06/25/2022 Ancillary Procedure Cardiology Kirk Silver MD [address] [place] [address] (Wo rk) Scheduled Procedures Name Priority Associated Diagnoses Date/Time REPAIR, PTOSIS, BILATERAL, Dermatochalas is 05/15/2022 7:30 AM CDT WITH BILATERAL BLEPHAROPLASTY 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 REPAIR, ECTROPION, EYE, Dermatochalasis 05/15/2022 7:30 AM CDT BILATERAL 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 documented as of this encounter Visit Diagnoses Diagnosis Coronary artery disease involving [place] coronary artery of [place] heart without angina pectoris Essential hypertension Unspecified essential hypertension 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
--- OUTSIDE RECORDS SUMMARY | 2022-05-02 12:36 | XMS_ITS | Encounter Summary ---
:1950 Author Organization [place] Address [address] [place] [address] Care Team Providers Name Role Phone Anatoliy Jackson MD Primary Care Provider Heath More MD Unavailable Peter Gipson MD Unavailable Reason for Visit Reason Comments Health Maintenance Encounter Details Date Type Department Care Team Description 12/21/2019 Documentation Only [facility] Ambulatory [phone] [place] [address] (Work) [place] [address] Social History Tobacco Use Types [...] [address] [place] [address] (Wo rk) 05/15/2022 Surgery Surgery Neo Torres MD BLEPHAROPLASTY BILATERAL [place] [facility] PTOSIS REPAIR BILATERAL [address] [place] [address] (Wo rk) 06/25/2022 Ancillary Procedure Cardiology Kirk Silver MD [address] [place] [address] (Wo rk) Scheduled Procedures Name Priority Associated [...] Name Priority Date/Time Associated Diagnosis Comme nts COLONOSCOPY - HIM SCAN Routine 09/30/2018 Resul ts for this procedure are i n the results section . documented in this encounter Results Colonoscopy - HIM Scan (09/30/2018) Specimen (Source) Anatomical Location Collection Method / Collectio n Time Received Time / Laterality Volume 09/30/2018 Narrative Ly Oh CMA - 09/30/2018 Care everywhere Provider Outside PROCEDURES documented in this encounter Visit Diagnoses Not on filedocumented in this encounter Care Teams Shift Production Associate Relationship Specialty Start Date End Date Anatoliy Jackson MD PCP - General 05/14/12 Heath More PCP - Internal Medicine INTERNAL MEDICINE - 01/06/14 MD Andreas ENDOCRINOLOG[facility], [facility] [address] [facility] [address] [place] [phone] Peter Gipson PCP - Urology 04/02/15 MD Jordan [facility] [address] [place] [address] [address] [place] [address] documented as of this encounter
--- OUTSIDE RECORDS SUMMARY | 2022-05-02 12:36 | XMS_ITS | Encounter Summary ---
:1950 Author Organization [place] Address [address] [facility] [place] [address] Care Team Providers Name Role Phone Anatoliy Jackson MD Primary Care Provider Heath More MD Unavailable Peter Gipson MD Unavailable Reason for Visit Reason Onset Date Comments Refill Request 10/07/2019 Carvedilol Encounter Details Date Type Department Care Team Description 10/07/2019 Refill [facility] Prabhjot Lee, Refill Request [facility] PA-C (Carvedilol) [address] [address] [place], [place] [phone] (Wo rk) [address] [phone] Social History Tobacco Use Types Packs/Day Years [...] [address] [place] [address] (Wo rk) 05/15/2022 Surgery Surgery Neo Torres MD BLEPHAROPLASTY BILATERAL [place] [facility] PTOSIS REPAIR BILATERAL [address] [place] [address] (Wo rk) 06/25/2022 Ancillary Procedure Cardiology Kirk Silver MD [address] [place] [id number] (Wo rk) Scheduled Procedures Name Priority Associated Diagnoses Date/Time REPAIR, PTOSIS, BILATERAL, Dermatochalas is 05/15/2022 7:30 AM CDT WITH BILATERAL BLEPHAROPLASTY 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 REPAIR, ECTROPION, EYE, Dermatochalasis 05/15/2022 7:30 AM CDT BILATERAL 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 documented as of this encounter Visit Diagnoses Diagnosis Coronary artery disease involving [place] coronary artery of [place] heart without angina pectoris 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
--- OUTSIDE RECORDS SUMMARY | 2022-05-02 12:36 | XMS_ITS | Encounter Summary ---
:1950 Author Organization [place] Address [address] [facility] [place] [address] Care Team Providers Name Role Phone Anatoliy Jackson MD Primary Care Provider Heath More MD Unavailable Peter Gipson MD Unavailable Reason for Referral Diagnostic Imaging MRI (Routine) - Closed Specialty Diagnoses / Procedures Referred By Contact Refer red To Contact Radiology. Diagnoses DDD (degenerative disc disease), lumbar Lumbar radicular pain Peter Mcmullen Rh Mri Rscc Procedures MRI Lumbar spine w/o contrast [address] [employer] [facility] [place], [place] [id number] [address] [place] [address] Phone: Fax: Referral ID Status Reason Start Date Expiration Date Visits Requ ested Visits Authorized [id number] Closed 10/06/2019 10/05/2020 1 1 PRESIDENT SUPPLY CHAIN Reason for Visit Diagnostic Imaging MRI (Routine) - Closed Specialty Diagnoses / Procedures Referred By Contact Refer red To Contact Radiology. Diagnoses DDD (degenerative disc disease), lumbar Lumbar radicular pain Peter Mcmullen Rh Mri Rscc Procedures MRI Lumbar spine w/o contrast [address] [place] [address] [place] [address] Phone: Fax: Referral ID Status Reason Start Date Expiration Date Visits Requ ested Visits Authorized [id number] Closed 10/06/2019 10/05/2020 1 1 Encounter Details Date Type Department Care Team Description 10/11/2019 [facility] ([facility] disease), lumbar; [facility] MD Mahendra Lumbar radicular pain [address] [facility] [address] [place] [address] [phone] Social History Tobacco Use Types Packs/Day Years [...] PM CDT documented as of this encounter Medications [...] Take 1 tablet (5 mg) 90 tablet 3 12/05/2019 MG tabletIndications: by mouth daily Coronary artery disease involving [place] coronary artery of [place] heart without angina pectoris, Essential hypertension aspirin 325 MG tablet Take 81 mg by mouth 0 02/18/2021 daily carvedilol (COREG) 12.5 Take 1 tablet (12.5 180 tablet 1 04/10/2020 MG tabletIndications: mg) by mouth 2 times Coronary artery disease daily (with meals) involving [place] coronary artery of [place] heart without angina pectoris cloNIDine (CATAPRES) Take 0.1 mg by mouth 0 04/18/2021 0.1 MG tablet 2 times daily finasteride (PROSCAR) 5 Take 5 mg by mouth 0 02/18/2021 MG tablet GABAPENTIN PO Take 300 mg by mouth 0 0 02/18/2021 as needed Insulin Lispro (HUMALOG Inject Subcutaneous 3 0 [...] Take 1 tablet by 90 tablet 3 201812/13/2019 hiazide mouth daily (PRINZIDE/ZESTORETIC) 20-12.5 MG tabletIndications: Hypertension nitroGLYcerin Take 1 tab under the 25 tablet 3 01/25/2019 0 02/06/2020 (NITROSTAT) 0.4 MG tongue for chest sublingual pain, may repeat tabletIndications: every 5 minutes x2. Coronary artery disease If pain not relieved involving menom[place] then seek medical coronary artery of attention [place] heart without angina pectoris rosuvastatin (CRESTOR) Take 1 tablet (40 mg) 90 tablet 3 12/13/2019 40 MG by mouth every tabletIndications: evening Coronary artery disease involving [place] coronary artery of [place] heart without angina pectoris, Hyperlipidemia LDL goal [...] [address] [place] [address] (Wo rk) 05/15/2022 Surgery Surgery Neo Torres MD BLEPHAROPLASTY BILATERAL [facility] PTOSIS REPAIR BILATERAL [address] [place] [address] (Wo rk) 06/25/2022 Ancillary Procedure Cardiology Kirk Silver MD [address] [place] [id number] (Wo rk) Scheduled Procedures Name Priority Associated [...] Name Priority Date/Time Associated Diagnosis Comme nts MR LUMBAR SPINE W/O Routine 10/11/2019 12:03 PM DDD (degenerat prasanna Results for this CONTRAST VICE PRESIDENT SUPPLY CHAIN disc disease), procedure are in lumbar the results Lumbar radicular section. pain documented in this encounter Results MRI Lumbar spine w/o contrast (10/11/2019 12:03 PM VICE PRESIDENT SUPPLY CHAIN) Anatomical Region Laterality Modality Spine, SUBRAD MR NEURO, UMP MR SPINE, RAD MR Magnetic Resonance Specimen (Source) Anatomical Location Collection Method / Collectio n Time Received Time / Laterality Volume Impressions 10/11/2019 1:15 PM VICE PRESIDENT SUPPLY CHAIN IMPRESSION: 1. Grade 1 spondylolisthesis at L5-S1 mo st likely due to degenerative change although there is some questionab le pars defects as well as this level. There is secondary moderate bilateral neural foraminal stenosis but no central canal stenosis. 2. L4-5 degenerative disc and facet dise ase with mild central and moderate bilateral neural foraminal sten osis. 3. L3-4 degenerative disc and facet dise ase with mild bilateral neural foraminal stenosis but no central canal stenosis. BRYSON TORREZ MD Narrative 10/11/2019 1:15 PM VICE PRESIDENT SUPPLY CHAIN MR LUMBAR SPINE WITHOUT CONTRAST 10/11/2019 12:03 PM HISTORY: Abnormal x-ray, L/S-spine, bone destruction. Radiculopathy, more than 6 weeks conservative treatment , persistent symptoms. DDD (degenerative disc disease), lumbar. Lum bar radicular pain. TECHNIQUE: Multiplanar, multisequence im ages were obtained through the lumbar spine without contrast. COMPARISON: Plain radiograph dated 2019. FINDINGS: Five lumbar type vertebral bod ies are presumed. There is 2 mm of spondylolisthesis at L5-S1. Food Science Technician ior alignment is otherwise normal. The conus medullaris is normal i n appearance with its tip at the L1-2 level. Cauda equina nerve roots are normal. Disc spaces and vertebral body heights are maintained. B one marrow signal intensity is within normal limits. T12-L1: Normal. L1-2: Normal disc. Mild facet hypertroph y. No stenosis. L2-3: Minimal disc bulging and mild-to-m oderate facet hypertrophy is present. There is no stenosis. L3-4: Broad-based disc bulge and mild-to -moderate facet and ligamentum flavum hypertrophy is present causing so me mild bilateral neural foraminal stenosis but no central canal stenosis. L4-5: Broad-based disc bulging and moder ate facet and ligamentum flavum hypertrophy is present causing so me mild central canal stenosis and moderate bilateral neural foraminal stenosis. L5-SI: Broad-based disc bulging, moderat e facet hypertrophy and minimal spondylolisthesis is present cau sing some moderate bilateral neural foraminal stenosis but no signifi cant central canal stenosis. There is also questionable pars defects although this is difficult to evaluate on this study. Paraspinal soft tissues: Unremarkable as visualized. Procedure Note Bryson Torrez MD - 10/11/2019Form atting of this note might be different from the original. MR LUMBAR SPINE WITHOUT CONTRAST 0 12:03 PM HISTORY: Abnormal x-ray, L/S-spine, bone destruction. Radiculopathy, more than 6 weeks conservative treatment , persistent symptoms. DDD (degenerative disc disease), lumbar. Lum bar radicular pain. TECHNIQUE: Multiplanar, multisequence im ages were obtained through the lumbar spine without contrast. COMPARISON: Plain radiograph dated 2019. FINDINGS: Five lumbar type vertebral bod ies are presumed. There is 2 mm of spondylolisthesis at L5-S1. Food Science Technician ior alignment is otherwise normal. The conus medullaris is normal i n appearance with its tip at the L1-2 level. Cauda equina nerve roots are normal. Disc spaces and vertebral body heights are maintained. B one marrow signal intensity is within normal limits. T12-L1: Normal. L1-2: Normal disc. Mild facet hypertroph y. No stenosis. L2-3: Minimal disc bulging and mild-to-m oderate facet hypertrophy is present. There is no stenosis. L3-4: Broad-based disc bulge and mild-to -moderate facet and ligamentum flavum hypertrophy is present causing so me mild bilateral neural foraminal stenosis but no central canal stenosis. L4-5: Broad-based disc bulging and moder ate facet and ligamentum flavum hypertrophy is present causing so me mild central canal stenosis and moderate bilateral neural foraminal stenosis. L5-SI: Broad-based disc bulging, moderat e facet hypertrophy and minimal spondylolisthesis is present cau sing some moderate bilateral neural foraminal stenosis but no signifi cant central canal stenosis. There is also questionable pars defects although this is difficult to evaluate on this study. Paraspinal soft tissues: Unremarkable as visualized. IMPRESSION: 1. Grade 1 spondylolisthesis at L5-S1 mo st likely due to degenerative change although there is some questionab le pars defects as well as this level. There is secondary moderate bilateral neural foraminal stenosis but no central canal stenosis. 2. L4-5 degenerative disc and facet dise ase with mild central and moderate bilateral neural foraminal sten osis. 3. L3-4 degenerative disc and facet dise ase with mild bilateral neural foraminal stenosis but no central canal stenosis. 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
--- OUTSIDE RECORDS SUMMARY | 2022-05-02 12:36 | XMS_ITS | Encounter Summary ---
:1950 Author Organization [place] Address [address] [facility] [place] [address] Care Team Providers Name Role Phone Anatoliy Jackson MD Primary Care Provider Heath More MD Unavailable Peter Gipson MD Unavailable Reason for Visit Reason Onset Date Comments Follow Up 11/16/2019 Follow up for low ba ck and hip pain Encounter Details Date Type Department Care Team Description 11/16/2019 Virtual Visit [facility] Peter Mcmullen DDD (de generative disc disease), lumbar (Primary Dx); Sports Medicine Clinic Konstantin Mccray Lumbar radicular pain [address] [place] [address] Social History Tobacco Use Types Packs/Day Years [...] PM CDT documented as of this encounter Patient Instructions Patient InstructionsLoGabriela pedersen ATC - 11/16/2019 1:20 PM CDT Thanks for coming today. Ortho[facility] Medicine Clinic [address] [place] [address] To schedule future appointments in Ortho Clinic, you may call [phone]. To schedule ordered imaging by your provider: Call Central Imaging [phone] To schedule an injection ordered by your provider: Call Central Imaging Injection scheduling line: [phone] Vela Systemshar[employer] available online at: [employer]ivergence[employer] Please call if any further questions or concerns ([phone]). Clinic hours 8 am to 5 pm. Return to clinic (call) if symptoms worsen or fail to improve. documented in this encounter Progress Notes Peter Mcmullen MD - 11/16/2019 1:20 PM CDT Nikita Anderson is a 69 year old male who is being evaluated via a billable video visit. After review of patient's medical issues this visit was conducted via video as opposed to in person,in effort to reduce risk of COVID-19 exposure. The patient has been notified of following: [...] given verbal consent for Video visit? Yes Patient would like the video invitation sent by: Send to e-mail at: [email or web address] Video Start Time: 1:55pm Nikita Anderson complains of Low back and radicular pain Chief Complaint Patient presents with ??? Follow Up Follow up for low back and hip pain I have reviewed and updated the patient's Past Medical History, Social History, Family History and Medication List. ALLERGIES Atorvastatin and Epinephrine Additional provider notes: 69 yo male with lumbar ddd, radicular pain following up for lumbar MRI General - normal appearance, in no obvious [...] - patellar and Achilles DTRs 2+ bilaterally, no lower extremity sensory deficit throughout L5 distribution, grossly normal coordination, normal muscle tone Skin - no ecchymosis, erythema, warmth, or induration, no obvious rash Psych - interactive, appropriate, normal mood and affect 69 yo male with lumbar ddd, radicular pain, bilateral feet tingling Reviewed lumbar MRI: shows ddd, herniated disc at L5 Consider ERASTO after pandemic Encouraged to use gabapentin 300 in afternoon and in eveneing F/u in 1 month in person if possible Video-Visit Details Type of service: Video Visit Video End Time (time video stopped): 2:09pm Originating Location (pt. Location): Home Distant Location (provider location): [facility] Mode of Communication: Video Conference via [employer] Peter Mcmullen MD documented in this encounter Plan of Treatment Upcoming Encounters Date Type Specialty Care Team Description 05/15/2022 Hospital Encounter Surgery Singh Torres MD [facility] [address] [place] [address] (Wo rk) 05/15/2022 Surgery Surgery Neo Torres MD BLEPHAROPLASTY BILATERAL [facility] PTOSIS REPAIR BILATERAL [address] [place] [id number] (Wo rk) 06/25/2022 Ancillary Procedure Cardiology Kirk Silver MD [address] [place] [id number] (Wo rk) Scheduled Procedures Name Priority Associated [...] ptosis documented in this encounter Care Teams Fingernail Sculpturer Relationship Specialty Start Date End Date Anatoliy Jackson MD PCP - General 05/14/12 Heath More PCP - Internal Medicine INTERNAL MEDICINE - 01/06/14 MD Andreas ENDOCRINOLOGY, [facility] [address] [place] [address] Peter Gipson PCP - Urology 04/02/15 MD Jordan [facility] [address] [place] [phone] documented as of this encounter
--- OUTSIDE RECORDS SUMMARY | 2022-05-02 12:36 | XMS_ITS | Encounter Summary ---
:1950 Author Organization [place] Address [address] [facility] [place] [address] Care Team Providers Name Role Phone Anatoliy Jackson MD Primary Care Provider Heath More MD Unavailable Peter Gipson MD Unavailable Peter Aguiar MD Unavailable Peter Mcmullen MD Unavailable Reason for Visit Reason Comments acp Encounter Details Date Type Department Care Team Description 10/09/2020 Documentation Only Honoring Katya Morales acp [address] [facility] [address] [place] [address] Social History Tobacco Use Types Packs/Day Years [...] [address] [place] [address] (Wo rk) 05/15/2022 Surgery Surgery Neo Torres MD BLEPHAROPLASTY BILATERAL [facility] PTOSIS REPAIR BILATERAL [address] [place] [address] (Wo rk) 06/25/2022 Ancillary Procedure Cardiology Kirk Silver MD [address] [place] [phone] (Wo rk) Scheduled Procedures Name Priority Associated [...] on filedocumented in this encounter Care Teams Transferrer Relationship Specialty Start Date End Date Anatoliy Jackson, PCP - General 05/14/12 Heath More PCP - Internal Medicine INTERNAL MEDICINE - 01/06/14 MD Andreas ENDOCRINOLOGY, [facility] [address] [place] [phone] Peter Gipson PCP - Urology 04/02/15 MD Jordan [facility] [address] [place] [address] [address] [place], [place] [phone] Peter Aguiar Assigned Heart and 06/01/20 12/15/20 MD Ishan V[facility] Provider [address] [place] [address] Peter Mcmullen Assigned Musculoskeletal 06/01/20 MD Mahendra Provider [address] [facility] [address] [place], [place] [id number] documented as of this encounter
--- OUTSIDE RECORDS SUMMARY | 2022-05-02 12:36 | XMS_ITS | Encounter Summary ---
:1950 Author Organization [place] Address [address] [facility] [place] [address] Care Team Providers Name Role Phone Anatoliy Jackson MD Primary Care Provider Heath More MD Unavailable ePter Gipson MD Unavailable Reason for Visit Reason Onset Date Comments Results 11/15/2019 Encounter Details Date Type Department Care Team Description 11/15/2019 Telephone [facility] Peter Reyes, [place] [address] [place] [address] [place] [address] [phone] [place] [address] (Wo rk) Social History Tobacco [...] this encounter Miscellaneous Notes Telephone Encounter - Yuly Mackey ATC - 11/15/2019 4:45 PM CDT I left a message on for the patient letting him know that we would like to schedule a virtual visit for tomorrow at with Dr. Mcmullen. I gave him a call back number and I let him know that if we don't answer he should leave a message and we will give him a call back. JULIUS Emery Telephone Encounter - Dave Zamora ATC - 11/15/2019 1:41 PM CDTSummary: UPDATE Printed this MyChart encounter and given to Dr. Mcmullen on 11/15/19 @1pm. Telephone Encounter - Karoline Yeung - 11/15/2019 12:14 PM CDT [facility] Phone Message May a detailed message be left on voicemail: yes Reason for Call: Requesting Results Name/type of test: MRI Date of test: 10/11/19 Was test done at a location other than [facility] (Please fill in the location if not [facility])?: No Action Taken: Message routed to: [facility] ortho Travel Screening: Not Applicable documented in this encounter Plan of Treatment Upcoming Encounters Date Type Specialty Care Team Description 05/15/2022 Hospital Encounter Surgery Singh Torres MD [facility] [address] [place] [address] (Wo rk) 05/15/2022 Surgery Surgery Neo Torres MD BLEPHAROPLASTY BILATERAL [facility] & [facility] PTOSIS REPAIR BILATERAL [address] [place] [address] (Wo rk) 06/25/2022 Ancillary Procedure Cardiology Kirk Silver MD [address] [facility] [address] [place] [phone] (Wo rk) Scheduled Procedures Name Priority Associated [...] on filedocumented in this encounter Care Teams Grievance And Appeals Specialist Relationship Specialty Start Date End Date Anatoliy Jackson MD PCP - General 05/14/12 Heath More PCP - Internal Medicine INTERNAL MEDICINE - 01/06/14 MD Andreas ENDOCRINOLOGY, [facility] [address] [place] [phone] Peter Gipson PCP - Urology 04/02/15 MD Jordan [facility] [address] [place] [id number] documented as of this encounter
--- OUTSIDE RECORDS SUMMARY | 2022-05-02 12:36 | XMS_ITS | Encounter Summary ---
:1950 Author Organization [place] Address [address] [facility] [place] [address] Care Team Providers Name Role Phone Anatoliy Jackson MD Primary Care Provider Heath More MD Unavailable Peter Gipson MD Unavailable Reason for Visit Diagnostic Imaging XR (Routine) - Closed Specialty Diagnoses / Procedures Referred By Contact Refer red To Contact Diagnoses DDD (degenerative disc disease), lumbar Lumbar radicular pain Peter Mcmullen MD Procedures XR Lumbar Spine 2-3 Views* [address] [employer] [employer], [place] [address] Referral ID Status Reason Start Date Expiration Date Visits Requ ested Visits Authorized [id number] Closed 10/06/2019 10/05/2020 1 1 Encounter Details Date Type Department Care Team Description 10/06/2019 Ancillary Procedure [facility] Arie Mcmullen DDD (degenerative disc disease), lumbar; Mackenzie Mccray MD Lumbar radicular pain [address] [facility] [address] [facility], [address] [place] [address] [phone] Social History Tobacco Use Types Packs/Day Years [...] [address] [place] [address] (Wo rk) 05/15/2022 Surgery Surgery Neo Torres MD BLEPHAROPLASTY BILATERAL [facility] & [facility] PTOSIS REPAIR BILATERAL [address] [place] [address] (Wo rk) 06/25/2022 Ancillary Procedure Cardiology Kirk Silver MD [address] [place] [address] (Wo rk) Scheduled Procedures Name Priority Associated [...] Date/Time Associated Diagnosis Comme nts XR LUMBAR SPINE 2/3 Routine 10/06/2019 4:23 PM DDD (degenerati ve Results for this VIEWS ENTRY LEVEL INSTALLATION TECHNICIAN disc disease), procedure are in lumbar the results Lumbar radicular section. pain documented in this encounter Results XR Lumbar Spine 2-3 Views* (10/06/2019 4:23 PM ENTRY LEVEL INSTALLATION TECHNICIAN) Anatomical Region Laterality Modality Spine, T-spine, L-spine, Abdomen/Pelvis Computed Radiography Specimen (Source) Anatomical Location Collection Method / Collectio n Time Received Time / Laterality Volume Impressions 10/06/2019 4:29 PM ENTRY LEVEL INSTALLATION TECHNICIAN Impression: 1. ??No acute osseous abnormality. 2. ??Multilevel degenerative changes mos t pronounced at L5-S1. FADI PINEDA Narrative 10/06/2019 4:29 PM ENTRY LEVEL INSTALLATION TECHNICIAN 2 views lumbar spine radiographs 10/06/2019 4:25 PM History: DDD (degenerative disc disease) , lumbar; Lumbar radicular pain Comparison: None available Findings: Standing ??AP and lateral ??views of the lumbar spine were obtained. Motion degrading lateral view. 5 ??lumbar type vertebral bodies are ass umed for the purpose of this dictation. There is no acute osseous abnormality. ? ? There is multilevel degenerative changes of the lumbar spine, most pronounced at L5-S1 where there is moder ate disc space loss with associated grade 1 anterolisthesis. The lower lumbar spine predominant facet arthropathies. Degenerative changes of bilateral hips. Vascular calcifications. The visualized bowel gas pattern is non-obstructive. Procedure Note Fadi Pineda MD - 10/06/2019Forma tting of this note might be different from the original. 2 views lumbar spine radiographs 10/06/19 20 4:25 PM History: DDD (degenerative disc disease) , lumbar; Lumbar radicular pain Comparison: None available Findings: Standing AP and lateral views of the lum bar spine were obtained. Motion degrading lateral view. 5 lumbar type vertebral bodies are assum ed for the purpose of this dictation. There is no acute osseous abnormality. There is multilevel degenerative changes of the lumbar spine, most pronounced at L5-S1 where there is moder ate disc space loss with associated grade 1 anterolisthesis. The lower lumbar spine predominant facet arthropathies. Degenerative changes of bilateral hips. Vascular calcifications. The visualized bowel gas pattern is non-obstructive. Impression: 1. No acute osseous abnormality. 2. Multilevel degenerative changes most pronounced at L5-S1. 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
--- OUTSIDE RECORDS SUMMARY | 2022-05-02 12:36 | XMS_ITS | Encounter Summary ---
:1950 Author Organization [place] Address [address] [facility] [place] [address] Care Team Providers Name Role Phone Anatoliy Jackson MD Primary Care Provider Heath More MD Unavailable Peter Gipson MD Unavailable Encounter Details Date Type Department Care Team Description 01/06/2020 Travel Social History Tobacco Use Types Packs/Day [...] been in contact with No / Unsure 01/06/2020 8:33 PM CDT someone who was confirmed or 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 documented as of this encounter Plan of Treatment Upcoming Encounters Date Type Specialty Care Team Description 05/15/2022 Hospital Encounter Surgery Singh Torres MD [facility] [address] [place] [address] (Wo rk) 05/15/2022 Surgery Surgery Neo Torres MD BLEPHAROPLASTY BILATERAL [facility] & [facility] PTOSIS REPAIR BILATERAL [address] [place] [address] (Wo rk) 06/25/2022 Ancillary Procedure Cardiology Kirk Silver MD [address] [place] [phone] (Wo rk) Scheduled Procedures Name Priority Associated [...] on filedocumented in this encounter Care Teams Engagement Director Relationship Specialty Start Date End Date Anatoliy Jackson MD PCP - General 05/14/12 Heath More PCP - Internal Medicine INTERNAL MEDICINE - 01/06/14 MD Andreas ENDOCRINOLOGY, [facility] [address] [place] [phone] Peter Gipson PCP - Urology 04/02/15 MD Jordan [facility] [address] [place] [phone] documented as of this encounter
--- OUTSIDE RECORDS SUMMARY | 2022-05-02 12:36 | XMS_ITS | Encounter Summary ---
:1950 Author Organization [place] Address [address] [facility] [address] Care Team Providers Name Role Phone Anatoliy Jackson MD Primary Care Provider Heath More MD Unavailable Peter Gipson MD Unavailable Reason for Visit Reason Onset Date Comments Follow Up 12/09/2019 MRI fu Encounter Details Date Type Department Care Team Description 12/09/2019 Virtual Visit [facility] Orthopaedic Peter Mcmullen nerative disc Clinic MD Mahendra disease, cervical [address] (Primary Dx) [address]th [address] [place] [phone] Social History Tobacco Use Types Packs/Day Years [...] encounter Progress Notes Peter Mcmullen MD - 12/09/2019 4:20 PM CDT Reason For Visit: Chief Complaint Patient presents with ??? Follow Up MRI fu Pain Assessment Patient Currently in Pain: Yes Ivanna Marie ATC After review of patient's medical issues this visit was conducted over the phone, as opposed to in person, in effort to reduce risk of COVID-19 exposure. Nikita Anderson is a 69 year old male who is being evaluated via a billable telephone visit. The patient has been notified of following: This telephone visit will be conducted via a call between you and your physician/provider. We have found that certain health care needs can be provided without the need for a physical exam. This service lets us provide the care you need with a short phone conversation. If a prescription is necessary we can send it directly to your pharmacy. If lab work is needed we can place an order for that and you can then stop by our lab to have the test done at a later time. Telephone visits are billed at different rates depending on your insurance coverage. During this emergency period, for some insurers they may be billed the same as an in-person visit. Please reach out to your insurance provider with any questions. If during the course of the call the physician/provider feels a telephone visit is not appropriate, you will not be charged for this service. Patient has given verbal consent for Telephone visit? Yes What phone number would you like to be contacted at? cell How would you like to obtain your AVS? MyChart HISTORY OF PRESENT ILLNESS Mr. Anderson is a pleasant 69 year old year old male who follows up for his lumbar radicular pain andnumbness in both feet Gabapentin is helping control this well Has developed more neck stiffness and numbness in shoulder/arm since his last visit Wants to find a time to come in and discuss and get some xrays Will plan MEDICAL HISTORY Patient Active Problem List Diagnosis ??? Type 2 diabetes mellitus with circulatory disorder (H) ? ? Hyperlipidemia LDL goal <70 ??? Essential hypertension ??? Peripheral vascular disease (H) ??? Coronary artery disease involving [place] coronary artery of [place] heart without angina pectoris ??? Angina pectoris (H) ??? S/P coronary artery stent placement ??? Chronic renal insufficiency, stage 3 (moderate) (H) ??? 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 nitroGLYcerin (NITROSTAT) 0.4 MG sublingual tablet Take 1 tab under the tongue for chest pain, may repeat every 5 minutes x2. If pain not relieved then seek medical attention 25 tablet 3 ??? ONE TOUCH ULTRA TEST STRP as directed 100 prn ??? sertraline (ZOLOFT) 50 MG tablet Take 50 mg by mouth daily ??? SYRINGE B-D MICRO FINE 1/2 CC SYRINGES as directed 100 prn ??? traZODone (DESYREL) 50 MG tablet Take 50 mg by mouth At Bedtime ??? Turmeric 500 MG CAPS ??? lisinopril-hydrochlorothiazide (ZESTORETIC) 20-12.5 MG tablet Take 1 tablet by mouth daily 90 tablet 3 ??? rosuvastatin (CRESTOR) 40 MG tablet Take 1 tablet (40 mg) by mouth every evening 90 tablet 3 Allergies Allergen Reactions ??? Atorvastatin Other (See [...] on phone: None Gets together: None Attends oriental orthodox service: None Active member of club or organization: None Attends meetings of clubs or organizations: None Relationship status: None ??? Intimate partner violence Fear of current or ex partner: None Emotionally abused: None Physically abused: None Forced sexual activity: None Other Topics Concern ??? Parent/sibling w/ CABG, CT or angioplasty before 65F 55M? Not Asked [...] ??? None Additional medical/Social/Surgical histories reviewed in [facility] and updated as appropriate. REVIEW OF SYSTEMS (12/19/2019) 10 point ROS of systems including Constitutional, Eyes, Respiratory, Cardiovascular, Gastroenterology, Genitourinary, Integumentary, Musculoskeletal, Psychiatric, Allergic/Immunologic were all negativeexcept for pertinent positives noted in my HPI. ASSESSMENT & PLAN 69 male with lumbar ddd, radicular pain, improved, and cervical radicular pain Reviewed plan to see him in person for neck and possible shoulder xrays in a few weeks Will give some tramadol PRN Cont. Gabapentin for now Peter Mcmullen MD, CAQSM Phone call duration: 12 minutes Peter Mcmullen MD documented in this encounter Plan of Treatment Upcoming Encounters Date Type Specialty Care Team Description 05/15/2022 Hospital Encounter Surgery Singh Torres MD [facility] [address] [place] [address] (Wo rk) 05/15/2022 Surgery Surgery Neo Torres MD BLEPHAROPLASTY BILATERAL [facility] & [facility] PTOSIS REPAIR BILATERAL [address] [place] [address] (Wo rk) 06/25/2022 Ancillary Procedure Cardiology Kirk Silver MD [address] [place] [address] (Wo rk) Scheduled Procedures Name Priority Associated Diagnoses Date/Time REPAIR, PTOSIS, BILATERAL, Dermatochalas is 05/15/2022 7:30 AM CDT WITH BILATERAL BLEPHAROPLASTY 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 REPAIR, ECTROPION, EYE, Dermatochalasis 05/15/2022 7:30 AM CDT BILATERAL 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 documented as of this encounter Visit Diagnoses Diagnosis Degenerative disc disease, cervical - Pr imary Degeneration of cervical intervertebral disc 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
--- OUTSIDE RECORDS SUMMARY | 2022-05-02 12:36 | XMS_ITS | Encounter Summary ---
:1950 Author Organization [place] Address [address] [facility] [place] [address] Care Team Providers Name Role Phone Anatoliy Ortiz MD Primary Care Provider Heath More MD Unavailable Peter Gipson MD Unavailable Reason for Visit Reason Comments Laceration Encounter Details Date Type Department Care Team Description 01/06/2020 - Emergency [facility] Francisco Ayala ion of left 01/07/2020 [facility] Emergency MD Yasir index finger without Dept [facility] damage to nail, [address] foreign body presence [place], [place] [address] unspecified, [place] [id number] [place] [address] encounter [phone] (Wo rk) Social History Tobacco Use Types [...] Sign Reading Time Taken Comments Blood Pressure 182/76 01/06/2020 9:41 PM CDT Pulse - - Temperature 37.2 ??C (98.9 ??F) 01/06/2020 8:34 PM CDT Respiratory Rate 18 01/06/2020 8:34 PM CDT Oxygen Saturation 100% 01/07/2020 12:15 AM CDT Inhaled Oxygen Concentration - - Weight 103.9 kg (229 lb 0.9 oz) 01/06/2020 8:34 PM CDT Height - - Body Mass Index 31.95 12/13/2019 10:47 AM CDT documented in this encounter Discharge Instructions Discharge InstructionsFrancisco Ayala MD - 01/06/2020 11:52 PM CDT Discharge Instructions Laceration (Cut) You were seen today for a laceration (cut). Your provider examined your laceration for any problems such a buried foreign body (like glass, a splinter, or gravel), or injury to blood vessels, tendons, and nerves. Your provider may have also rinsed and/or scrubbed your laceration to help prevent an infection. It may not be possible to find all problems with your laceration on the first visit; occasionally foreign bodies or a tendon injury can go undetected. Your laceration may have been closed in one of several ways: No closure: many wounds will heal just fine without closure. Stitches: regular stitches that require removal. Shiv: skin shiv are often used in the scalp/head. Wound adhesive (glue): skin glue can be used for certain lacerations and doesn???t require removal. Wound strips (aka Butterfly bandages or steri-strips): these are bandages that help to close a wound. Absorbable stitches: ???dissolving?? stitches that go away on their own and usually don???t requireremoval. A small percentage of wounds will develop an infection regardless of how well the wound is cared for. Antibiotics are generally not indicated to prevent an infection so are only given for a small number of high-risk wounds. Some lacerations are too high risk to close, and are left open to heal becauseclosure can increase the likelihood that an infection will develop. Remember that all lacerations, no matter how expertly repaired, will cause scarring. We consider many factors, techniques, and materials, in our efforts to provide the best possible cosmetic outcome. Generally, every Emergency Department visit should have a follow-up clinic visit with either a primary or a specialty clinic/provider. Please follow-up as instructed by your emergency provider today. Return to the Emergency Department right away if: You have more redness, swelling, pain, drainage (pus), a bad smell, or red streaking from your laceration as these symptoms could indicate an infection. You have a fever of 100.4??F or more. You have bleeding that you cannot stop at home. If your cut starts to bleed, hold pressure on the bleeding area with a clean cloth or put pressure over the bandage. If the bleeding does not stop after using constant pressure for 30 minutes, you should return to the Emergency Department for further treatment. An area past the laceration is cool, pale, or blue compared with the other side, or has a slower return of color when squeezed. Your dressing seems too tight or starts to get uncomfortable or painful. For children, signs of a problem might be irritability or restlessness. You have loss of normal function or use of an area, such as being unable to straighten or bend a finger normally. You have a numb area past the laceration. Return to the Emergency Department or see your regular provider if: The laceration starts to come open. You have something coming out of the cut or a feeling that there is something in the laceration. Your wound will not heal, or keeps breaking open. There can always be glass, wood, dirt or other things in any wound. They will not always show up, even on x-rays. If a wound does not heal, this may bewhy, and it is important to follow- up with your regular provider. Home Care: Take your dressing off in 12-24 hours, or as instructed by your provider, to check your laceration. Remove the dressing sooner if it seems too tight or painful, or if it is getting numb, tingly, or pale past the dressing. Gently wash your laceration 1-2 times daily with clean water and mild soap. It is okay to shower or run clean water over the laceration, but do not let the laceration soak in water (no swimming). If your laceration was closed with wound adhesive or strips: pat it dry and leave it open to the air. For all other repairs: after you wash your laceration, or at least 2 times a day, apply antibiotic ointment (such as Neosporin?? or Bacitracin??) to the laceration, then cover it with a Band-Aid?? or gauze. Keep the laceration clean. Wear gloves or other protective clothing if you are around dirt. Follow-up for removal: If your wound was closed with shiv or regular stitches, they need to be removed according to the instructions and timeline specified by your provider today. If your wound was closed with absorbable (???dissolving?? ) sutures, they should fall out, dissolve,or not be visible in about one week. If they are still visible, then they should be removed according to the instructions and timeline specified by your provider today. Scars: To help minimize scarring: Wear sunscreen over the healed laceration when out in the sun. Massage the area regularly once healed. You may apply Vitamin E to the healed wound. Wait. Scars improve in appearance over months and years. If you were given a prescription for medicine here today, be sure to read all of the information (including the package insert) that comes with your prescription. This will include important information about the medicine, its side effects, and any warnings that you need to know about. The pharmacist who fills the prescription can provide more information and answer questions you may have about the medicine. If you have questions or concerns that the pharmacist cannot address, please call or return to the Emergency Department. Remember that you can always come back to the Emergency Department if you are not able to see your regular provider in the amount of time listed above, if you get any new symptoms, or if there is anything that worries you. documented in this encounter Medications at Time [...] 1 tablet (5 mg) 90 tablet 0 03/15/2020 MG tabletIndications: by mouth daily Coronary artery [...] mouth 0 02/18/2021 MG tablet gabapentin (NEURONTIN) TK ONE C PO TID [...] mouth daily 20-12.5 MG tabletIndications: Hypertension nitroGLYcerin Take 1 [...] goal <70, S/P coronary artery stent placement traMADol (ULTRAM) 50 MG Take 1 tablet (50 mg) 10 tablet 0 0 12/30/2019 03/13/2021 tabletIndications: by mouth nightly as Chronic left shoulder needed for severe pain, Cervical pain radicular pain traZODone (DESYREL) 50 Take 50 mg by mouth 0 04/18/2021 MG tablet At Bedtime documented as of this encounter ED Notes Keith Riley RN - 01/06/2020 8:33 PM CDT A&O x4, ABCs intact. Pt presents with laceration to pointer finger on left hand. Pt states that he was using a log splitter when he cut his finger. Bleeding controlled without need for intervention. Francisco Ayala MD - 01/06/2020 8:32 PM CDT History Chief Complaint: Laceration HPI Nikita Anderson is a right handed 69 year old male, with a history of diabetes type 2, who presents with laceration. The patient notes that he was using a psychology physician around 1930 tonight and had lacerated his right hand pointer finger. He notes some numbness of the finger and joint. Per chart review, the patient's last tetanus was in 2018. Allergies: Atorvastatin Epinephrine Medications: Aspirin 81 mg Trazodone Insulin Sertraline Past Medical History: Angina pectoris Cancer CAD Polyneuropathy artery Diabetes PVD Diabetes type 2 Hypertension Chronic renal insufficiency stage 3 Past Surgical History: Coronary artery stent placement Left Heart Catheterization Head and Neck surgery Family History: Hypertension, mother Diabetes Hypertension Social History: Smoking status: Never smoker Alcohol use: Yes Drug use: No PCP: Anatoliy Ortiz Presents to the ED unaccompanied Marital Status: [2] Review of Systems Skin: Positive for wound (right pointer finger). All other systems reviewed and are negative. Physical Exam Patient Vitals for the past 24 hrs: BP Temp Temp src Heart Rate Resp SpO2 Weight 01/06/20 2141 (!) 182/76 -- -- 57 -- -- -- 01/06/202033 (!) 169/72 98.9 ??F (37.2 ??C) Oral 68 18 98 % 103.9 kg (229 lb 0.9 oz) Physical Exam Constitutional: Alert, attentive, GCS 15 Cardiovascular: 2+ radial and ulnar pulses to the bilateral upper extremities Neurological: 5/5 strength to the radian, ulnar and median motor distributions; sensation intact to light touch to the radian, ulnar and median distributions MSK: 3 cm total laceration to the tip of the left index fingerip, no nail involvement; FROM to the index finger including flexion and extension at the MCP, PIP, and DIP Skin: Skin is warm and dry. Emergency Department Course Laboratory: Laboratory findings were communicated with the patient who voiced understanding of the findings. Glucose by meter: 213(H) Procedures PROCEDURE: Digital Block LOCATION: Right pointer finger ANESTHESIA: Digital block using Bupivacaine 0.5%, total of 2 mLs PROCEDURE NOTE: The patient tolerated the procedure well with good relief of discomfort and there were no complications. Laceration Repair LACERATION: A simple clean 3.0 cm laceration. LOCATION: Right pointer finger FUNCTION: Distally sensation, circulation, motor and tendon function are intact. ANESTHESIA: Digital block, noted above. PREPARATION: Irrigation with Normal Saline and Shur Clens DEBRIDEMENT: no debridement CLOSURE: Wound was closed with One Layer. Skin closed with 6 x 5.0 Ethylon using interrupted sutures. Emergency Department Course: Nursing notes and vitals reviewed. 2300 I performed an exam of the patient as documented above. 2304 I performed a nerve block. 2334 I performed a laceration repair. I personally reviewed the results with the patient and answered all related questions prior to discharge. Impression & Plan Medical Decision Making: Nikita Anderson is a 69 year old male who presented with a laceration to the left index fingertip. The wound was carefully evaluated and explored. The laceration was closed with ethilon as noted above. There is no evidence of muscular, tendon, or bony damage with this laceration. Possible complications(infection, scarring) were reviewed with the patient. Follow up with primary care will be indicated for suture removal in 7-10 days. I advised strict return precautions for pain, redness or drainage tothe site, bleeding, or any other concerning symptoms. Diagnosis: ICD-10-CM 1. Laceration of left index finger without damage to nail, foreign body presence unspecified, initial encounter S61.211A Disposition: The patient is discharged to home. Scribe Disclosure: ITiffany, am serving as a scribe at 2301 on 01/06/2020 to document services personally performed by Francisco Ayala MD based on my observations and the provider's statements to me. [facility] EMERGENCY DEPARTMENT Francisco Ayala MD 01/07/20 0247 documented in this encounter Plan of Treatment Upcoming Encounters Date Type Specialty Care Team Description 05/15/2022 Hospital Encounter Surgery Singh Torres MD [facility] [address] [place] [id number] (Wo rk) 05/15/2022 Surgery Surgery Neo Torres MD BLEPHAROPLASTY BILATERAL [facility] PTOSIS REPAIR BILATERAL [address] [place] [id number] (Wo rk) 06/25/2022 Ancillary Procedure Cardiology Kirk Silver MD [address] [place] [id number] (Wo rk) Scheduled Procedures Name Priority Associated [...] Name Priority Date/Time Associated Diagnosis Comme nts GLUCOSE BY METER Routine 01/06/2020 10:52 PM Resu lts for this CDT procedure are i n the results section. documented in this encounter Results (ABNORMAL) Glucose by meter (01/06/2020 10:52 PM CDT) P athologist Signature Glucose 213 (H) 70 - 99 01/06/2020 POINT OF CARE mg/dL 10:57 PM CDT TEST, GLUCOSE Specimen Anatomical Collection Method Collection Time Receive d Time (Source) Location / / Volume Laterality 01/06/2020 10:52 01/06/2020 PM CDT 10:57 PM CDT Francisco Ayala MD LAB - BEAKER POCT Performing Organization Address City/State/ZIP Code Phon e Number [facility] POINT OF CARE TEST, GLUCOSE POINT OF CARE TEST, GLUCOSE documented in this encounter Visit Diagnoses Diagnosis Laceration of left index finger without damage to nail, foreign body presence unspecified, initial encounter 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
--- OUTSIDE RECORDS SUMMARY | 2022-05-02 12:36 | XMS_ITS | Encounter Summary ---
:1950 Author Organization [place] Address [address] [facility] [address] Care Team Providers Name Role Phone Anatoliy Jackson MD Primary Care Provider Heath More MD Unavailable Peter Gipson MD Unavailable Reason for Visit Reason Onset Date Comments Refill Request 04/10/2020 carvedilol Encounter Details Date Type Department Care Team Description 04/10/2020 Refill [facility] Laureen Emerson RN Refill Request [facility] Heart (carvedilol) Care-[address] [place] [address] Social History Tobacco Use Types [...] Telephone Encounter - Laureen Emerson RN - 04/10/2020 5:04 PM CDT Medication Refilled: carvedilol Last office visit: 12/13/[address] Aguiar Last Labs/EKG: NA Next office visit: 12/2020 [facility] Pharmacy sent to: estephanie Emerson RN documented in this encounter Plan of Treatment Upcoming Encounters Date Type Specialty Care Team Description 05/15/2022 Hospital Encounter Surgery Singh Torres MD [facility] [address] [place] [address] (Wo rk) 05/15/2022 Surgery Surgery Neo Torres MD BLEPHAROPLASTY BILATERAL [facility] PTOSIS REPAIR BILATERAL [address] [place] [address] (Wo rk) 06/25/2022 Ancillary Procedure Cardiology Kirk Silver MD [address] [place], [place] [phone] (Wo rk) Scheduled Procedures Name Priority Associated Diagnoses Date/Time REPAIR, PTOSIS, BILATERAL, Dermatochalas is 05/15/2022 7:30 AM CDT WITH BILATERAL BLEPHAROPLASTY 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 REPAIR, ECTROPION, EYE, Dermatochalasis 05/15/2022 7:30 AM CDT BILATERAL 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 documented as of this encounter Visit Diagnoses Diagnosis Coronary artery disease involving robinson coronary artery of robinson heart without angina pectoris 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
--- OUTSIDE RECORDS SUMMARY | 2022-05-02 12:36 | XMS_ITS | Encounter Summary ---
:1950 Author Organization [place] Address [address] [place] [address] Care Team Providers Name Role Phone Anatoliy Jackson MD Primary Care Provider Heath More MD Unavailable Peter Gipson MD Unavailable Reason for Visit Reason Onset Date Comments Patient Request 02/06/2020 Encounter Details Date Type Department Care Team Description 02/06/2020 Telephone [facility] Arin Garcia R N Patient Request Clinic [address] [place] [address] Social History Tobacco Use Types Packs/Day [...] this encounter Miscellaneous Notes Telephone Encounter - Arin Garcia RN - 02/06/2020 11:48 AM CDT Received VM from pt requesting a refill of sublingual nitroglycerin. Pt stated he also has a question he forgot to ask at his visit on 12/13/19. Called back to pt, no answer. Left detailed VM advising new Rx sent to pt's preferred pharmacy for nitroglycerin, requested pt call and let us know if he is having increased chest pain or needing to use nitroglycerin frequently. Left call back number for Team 1. documented in this encounter Plan of Treatment Upcoming Encounters Date Type Specialty Care Team Description 05/15/2022 Hospital Encounter Surgery Singh Torres MD [facility] [address] [place] [address] (Wo rk) 05/15/2022 Surgery Surgery Neo Torres MD BLEPHAROPLASTY BILATERAL [facility] PTOSIS REPAIR BILATERAL [address] [place] [address] (Wo rk) 06/25/2022 Ancillary Procedure Cardiology Kirk Silver MD [address] [place] [address] (Wo rk) Scheduled Procedures Name Priority Associated Diagnoses Date/Time REPAIR, PTOSIS, BILATERAL, Dermatochalas is 05/15/2022 7:30 AM CDT WITH BILATERAL BLEPHAROPLASTY 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 REPAIR, ECTROPION, EYE, Dermatochalasis 05/15/2022 7:30 AM CDT BILATERAL 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 documented as of this encounter Visit Diagnoses Diagnosis Coronary artery disease involving yocha dehe coronary artery of yocha dehe heart without angina pectoris 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 [address] [phone] Peter Gipson PCP - Urology 04/02/15 MD Jordan [facility] [address] [place] [id number] documented as of this encounter
--- OUTSIDE RECORDS SUMMARY | 2022-05-02 12:36 | XMS_ITS | Encounter Summary ---
:1950 Author Organization [place] Address [address] [facility] [place] [address] Care Team Providers Name Role Phone Anatoliy Jackson MD Primary Care Provider Heath More MD Unavailable Peter Gipson MD Unavailable Reason for Referral Diagnostic Imaging XR (Routine) - Closed Specialty Diagnoses / Procedures Referred By Contact Refer red To Contact Diagnoses Cervical radicular pain Peter Mcmullen MD Procedures XR Cervical Spine 2/[address] [place], [place] [address] Referral ID Status Reason Start Date Expiration Date Visits Requ ested Visits Authorized [id number] Closed 12/30/2019 12/29/2020 1 1 Diagnostic Imaging XR (Routine) - Closed Specialty Diagnoses / Procedures Referred By Contact Refer red To Contact Diagnoses Chronic left shoulder pain Peter Mcmullen MD Procedures XR Shoulder Left 2 Views [address] [place], [place] [address] Referral ID Status Reason Start Date Expiration Date Visits Requ ested Visits Authorized [id number] Closed 12/30/2019 12/29/2020 1 1 Reason for Visit Reason Comments RECHECK back Encounter Details Date Type Department Care Team Description 12/30/2019 [facility] Visit [facility] Peter Mcmullen left shoulder pain (Primary Dx); Orthopaedic Walk In MD Mahendra Cervical radicular pain [facility] [address] [place] [address] [address] [place] [phone] Social History Tobacco Use Types Packs/Day [...] Sign Reading Time Taken Comments Blood Pressure 149/54 12/30/2019 2:13 PM CDT Pulse - - Temperature - - Respiratory Rate 16 12/30/2019 1:21 PM CDT Oxygen Saturation - - Inhaled Oxygen Concentration - - Weight - - Height - - Body Mass Index - - documented in this encounter Progress Notes Peter Mcmullen MD - 12/30/2019 1:20 PM CDT SPORTS & ORTHOPEDIC WALK-IN FOLLOW-UP VISIT 12/30/2019 Interval History: ?? Follow up reason: cervical DDD ?? Date of injury: NA ?? Date last seen: 12/09/19 ?? Following Therapeutic Plan: Yes ?? Pain: Improving ?? Function: Improving ?? Interval History: Medical History: ?? Any recent changes to your medical history? No ?? Any new medication prescribed since last visit? No Review of Systems: ?? Do you have fever, chills, weight loss? No ?? Do you have any vision problems? No ?? Do you have any chest pain or edema? No ?? Do you have any shortness of breath or wheezing? No ?? Do you have stomach problems? No ?? Do you have any numbness or focal weakness? No ?? Do you have diabetes? Yes, type 2 ?? Do you have problems with bleeding or clotting? No ?? Do you have an rashes or other skin lesions? No HISTORY OF PRESENT ILLNESS Mr. Anderson is a pleasant 69 year old year old male who presents to clinic today with neck and left shoulder Nikita explains that he had an injury to his shoulder a few months ago, slowly improving but sore whenhe reaches behind his back He states his neck has improved with changing his pillow and gabapentin Location: neck and left shoulder, and some wrist discomfort Quality: achy pain Severity: 5/10 at worst Duration: months worse Timing: occurs intermittently Context: occurs while exercising and lifting Modifying factors: resting and non-use makes it better, movement and use makes it worse Associated signs & symptoms: radiation of pain into left arm and down to right wrist MEDICAL HISTORY Patient Active Problem List Diagnosis ??? Type 2 diabetes mellitus with circulatory disorder (H) ? ? Hyperlipidemia LDL goal <70 ??? Essential hypertension ??? Peripheral vascular disease (H) ??? Coronary artery disease involving [place] coronary artery of [place] heart without angina pectoris ??? Angina pectoris [...] CC SYRINGES as directed 100 prn ??? traMADol (ULTRAM) 50 MG tablet Take 1 tablet (50 mg) by mouth nightly as needed for severe pain 10 tablet 0 ??? traZODone (DESYREL) 50 MG tablet Take 50 mg by mouth At Bedtime ??? Turmeric 500 MG CAPS ??? gabapentin (NEURONTIN) 300 MG capsule TK ONE C PO TID Allergies Allergen Reactions ??? Atorvastatin Other (See [...] file Gets together: Not on file Attends taoism service: Not on file Active member of club or organization: Not on file Attends meetings of clubs or organizations: Not on file Relationship status: Not on file ??? Intimate partner violence Fear of current or ex partner: Not on file Emotionally abused: Not on file Physically abused: Not on file Forced sexual activity: Not on file Other Topics Concern ??? Parent/sibling w/ CABG, NE or angioplasty before 65F 55M? Not Asked [...] Social History Narrative ??? Not on file Additional medical/Social/Surgical histories reviewed in [facility] and updated as appropriate. REVIEW OF SYSTEMS (12/30/2019) 10 point ROS of systems including Constitutional, Eyes, Respiratory, Cardiovascular, Gastroenterology, Genitourinary, Integumentary, Musculoskeletal, Psychiatric, Allergic/Immunologic were all negativeexcept for pertinent positives noted in my HPI. PHYSICAL EXAM Vitals: 12/30/19 1321 12/30/19 1413 BP: (!) 149/72 (!) 149/54 Resp: 16 Vital Signs: BP (!) 149/54 Resp 16 Patient declined being weighed. There is no height or weight onfile to calculate BMI. General - normal appearance, in no obvious distress HEENT - conjunctivae not injected, moist mucous membranes, normocephalic/atraumatic head, ears normal appearance, no lesions, mouth normal appearance, no scars, normal dentition and teeth present CV - normal radial pulse Pulm - normal respiratory pattern, non-labored Musculoskeletal -left shoulder - inspection: normal bone and joint alignment, no obvious deformity, no scapular winging, no AC step-off - palpation: mildly tender RC insertion, normal clavicle, non-tender AC - ROM: painful and limited flexion and ER at end range, limited IR - strength: 5/5 call center associate strength, 5/5 in all shoulder planes - special tests: (-) Speed's (+) Neer (+) Hawkin's (+) Celso's (-) [place]'s (-) apprehension (-) subscap lift-off Neuro - no sensory or motor deficit, grossly normal coordination, normal muscle tone Skin - no ecchymosis, erythema, warmth, or induration, no obvious rash Psych - interactive, appropriate, normal mood and affect necK ;has some pain and stiffness with flexion and extension, negative spurlings ASSESSMENT & PLAN 69 yo male with left shoulder RC arthropathy, cervical radicular pain, ddd Reviewed xrays cervical spine: shows ddd Reviewed xrays shoulder: WNL Consider cervical MRI if not improving with HEP and medications Consider left shoulder injection PRN F/u PRN Will cont. Gabapentin and start tumeric as well Peter Mcmullen MD, CAQSM documented in this encounter Plan of Treatment Upcoming Encounters Date Type Specialty Care Team Description 05/15/2022 Hospital Encounter Surgery Singh Torres MD [facility] [address] [place] [id number] (Rosalva rk) 05/15/2022 Surgery Surgery Neo Torres MD BLEPHAROPLASTY BILATERAL [facility] PTOSIS REPAIR BILATERAL [address] [place] [id number] (Wo rk) 06/25/2022 Ancillary Procedure Cardiology Kirk Silver MD [address] [place] [id number] (Wo rk) Scheduled Procedures Name Priority Associated Diagnoses Date/Time REPAIR, PTOSIS, BILATERAL, Dermatochalas is 05/15/2022 7:30 AM CDT WITH BILATERAL BLEPHAROPLASTY 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 FADI PINEDA Narrative 12/30/2019 2:33 PM CDT 2 views cervical spine radiographs 12/30/2019 1:54 PM History: Cervical radicular pain Comparison: None available. Findings: Standing AP and lateral views of the cer vical spine were obtained. Down to the level of C7 is well visualiz ed on the lateral view(s). The cervicothoracic junction is not ??well a ssessed. There is no acute osseous abnormality. N o prevertebral soft tissue swelling. Normal cervical lordosis is ma intained. ??Trace anterolisthesis of C3 on C4. Mild disc s pace loss with uncovertebral hypertrophy at C5-C6. The visualized lung apices are clear. Adrianne nicole old healed fracture deformity of left clavicle. Procedure Note Fadi Pineda MD - 12/30/2019Forma tting of this note might be different from the original. 2 views cervical spine radiographs 2019 1:54 PM History: Cervical radicular pain Comparison: None available. Findings: Standing AP and lateral views of the cer vical spine were obtained. Down to the level of C7 is well visualiz ed on the lateral view(s). The cervicothoracic junction is not well ass essed. There is no acute osseous abnormality. N o prevertebral soft tissue swelling. Normal cervical lordosis is ma intained. Trace anterolisthesis of C3 on C4. Mild disc s pace loss with uncovertebral hypertrophy at C5-C6. The visualized lung apices are clear. Adrianne nicole old healed fracture deformity of left clavicle. Impression: Mild degenerative changes. FADI PINEDA Peter Mcmullen MD [facility] DIAGNOSTIC IMAGING ORDER SOCORRO XR Shoulder Left 2 Views (12/30/2019 1:53 PM CDT) Anatomical Region Laterality Modality Shoulder, Chest, Arm Left Computed Radiograph y Specimen (Source) Anatomical Location Collection Method / Collectio n Time Received Time / Laterality Volume Impressions 12/30/2019 2:34 PM CDT Impression: 1. No acute osseous abnormality. 2. Mild to moderate degenerative changes of glenohumeral joint. FADI PINEDA Narrative 12/30/2019 2:34 PM CDT 4 views left shoulder radiographs 12/30/2019 2:33 PM History: Chronic left shoulder pain; Chr onic left shoulder pain Comparison: None available. Findings: AP, Grashey, transscapular Y, axillary ? ?views of the left shoulder were obtained. No acute osseous abnormality. Glenohumer al and acromioclavicular joints are congruent. Mild degenerative changes of the acromio clavicular joint. Mild to moderate degenerative change of the poornima ohumeral joint. Old healed fracture deformity of left midclavicle. Cystlike change of the humeral head. Soft tissue is unremarkable. The visuali zed lung is clear. Procedure Note Fadi Pineda MD - 12/30/2019Forma tting of this note might be different from the original. 4 views left shoulder radiographs 020 2:33 PM History: Chronic left shoulder pain; Chr onic left shoulder pain Comparison: None available. Findings: AP, Grashey, transscapular Y, axillary v iews of the left shoulder were obtained. No acute osseous abnormality. Glenohumer al and acromioclavicular joints are congruent. Mild degenerative changes of the acromio clavicular joint. Mild to moderate degenerative change of the poornima ohumeral joint. Old healed fracture deformity of left midclavicle. Cystlike change of the humeral head. Soft tissue is unremarkable. The visuali zed lung is clear. Impression: 1. No acute osseous abnormality. 2. Mild to moderate degenerative changes of glenohumeral joint. 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
--- OUTSIDE RECORDS SUMMARY | 2022-05-02 12:36 | XMS_ITS | Encounter Summary ---
:1950 Author Organization [place] Address [address] [facility] [place] [address] Care Team Providers Name Role Phone Anatoliy Jackson MD Primary Care Provider Heath More MD Unavailable Peter Gipson MD Unavailable Peter Aguiar MD Unavailable Peter Mcmullen MD Unavailable Reason for Visit Reason Comments Medication Refill Encounter Details Date Type Department Care Team Description 08/21/2020 Refill [facility] Peter Reyes, Medication [place]ill [place] [address] [place] [address] [place], [place] [address] [place], [place] [phone] [place], [place] [phone] (Wo rk) Social History Tobacco Use Types [...] [address] [place] [address] (Wo rk) 05/15/2022 Surgery Surgery Neo Torres MD BLEPHAROPLASTY BILATERAL [facility] PTOSIS REPAIR BILATERAL [address] [place] [phone] (Wo rk) 06/25/2022 Ancillary Procedure Cardiology Kirk Silver MD [address] [place] [phone] (Wo rk) Scheduled Procedures Name Priority Associated [...] ptosis documented in this encounter Care Teams Bilingual Receptionist Relationship Specialty Start Date End Date Anatoliy Jackson, PCP - General 05/14/12 Heath More PCP - Internal Medicine INTERNAL MEDICINE - 01/06/14 MD Andreas ENDOCRINOLOGY, [facility] [address] [place] [phone] Peter Gipson - Urology 04/02/15 MD Jordan [facility] [address] [facility] [address] [place] [address] Peter Aguiar Assigned Heart and 06/01/20 12/15/20 MD Ishan Vascular Provider [address] [place], [place] [phone] Peter Mcmullen Assigned Musculoskeletal 06/01/20 MD Mahendra Provider [address] [place], [place] [phone] documented as of this encounter
--- OUTSIDE RECORDS SUMMARY | 2022-05-02 12:36 | XMS_ITS | Encounter Summary ---
:1950 Author Organization [place] Address [address] [facility] [place] [address] Care Team Providers Name Role Phone Anatoliy Jackson MD Primary Care Provider Heath More MD Unavailable Peter Gipson MD Unavailable Encounter Details Date Type Department Care Team Description 12/13/2019 Travel Social History Tobacco Use Types Packs/Day [...] MD [facility] [address] [place] [address] (Wo rk) 05/15/2022 Surgery Surgery Neo Torres MD BLEPHAROPLASTY BILATERAL [facility] [place] PTOSIS REPAIR BILATERAL [address] [place] [address] (Wo rk) 06/25/2022 Ancillary Procedure Cardiology Kirk Silver MD [address] [place] [id number] (Wo rk) Scheduled Procedures Name Priority Associated [...] on filedocumented in this encounter Care Teams Hand Stonecutter Relationship Specialty Start Date End Date Anatoliy Jackson MD PCP - General 05/14/12 Heath More PCP - Internal Medicine INTERNAL MEDICINE - 01/06/14 MD Andreas ENDOCRINOLOGY, [facility] [address] [place] [phone] Peter Gipson PCP - Urology 04/02/15 MD Jordan [facility] [address] [place] [phone] documented as of this encounter
--- OUTSIDE RECORDS SUMMARY | 2022-05-02 12:36 | XMS_ITS | Encounter Summary ---
:1950 Author Organization [place] Address [address] [facility] [address] Care Team Providers Name Role Phone Anatoliy Jackson MD Primary Care Provider Heath More MD Unavailable Peter Gipson MD Unavailable Encounter Details Date Type Department Care Team Description 10/11/2019 Travel Social History Tobacco Use Types Packs/Day [...] [address] [place] [address] (Wo rk) 05/15/2022 Surgery Surgery Neo Torres MD BLEPHAROPLASTY BILATERAL [facility] [place] PTOSIS REPAIR BILATERAL [address] [place] [id number] (Wo rk) 06/25/2022 Ancillary Procedure Cardiology Kirk Silver MD [address] [place] [id number] (Wo rk) Scheduled Procedures Name Priority Associated [...] on filedocumented in this encounter Care Teams Assistant Construction Superintendent Relationship Specialty Start Date End Date Anatoliy Jackson MD PCP - General 05/14/12 Heath More PCP - Internal Medicine INTERNAL MEDICINE - 01/06/14 MD Andreas ENDOCRINOLOGY, [facility] [address] [place] [phone] Peter Gipson PCP - Urology 04/02/15 MD Jordan [facility] [address] [place] [phone] documented as of this encounter
--- OUTSIDE RECORDS SUMMARY | 2022-05-02 12:36 | XMS_ITS | Encounter Summary ---
:1950 Author Organization [place] Address [address] [facility] [place] [address] Care Team Providers Name Role Phone Anatoliy Jackson MD Primary Care Provider Heath More MD Unavailable Peter Gipson MD Unavailable Reason for Visit Diagnostic Imaging XR (Routine) - Closed Specialty Diagnoses / Procedures Referred By Contact Refer red To Contact Diagnoses Chronic left shoulder pain Peter Mcmullen MD Procedures XR Shoulder Left [address] [place], [place] [address] Referral ID Status Reason Start Date Expiration Date Visits Requ ested Visits Authorized [id number] Closed 12/30/2019 12/29/2020 1 1 Encounter Details Date Type Department Care Team Description 12/30/2019 Ancillary Procedure [facility] Orthopa[facility]ics Arie Mcmullen Chronic left AMINAHay MD Mahendra shoulder pain [address] [facility], [address] [place] [address] [phone] Social History Tobacco Use Types Packs/Day Years [...] [address] [place] [address] (Wo rk) 05/15/2022 Surgery Surgery Neo Torres MD BLEPHAROPLASTY BILATERAL [place] [facility] [place] PTOSIS REPAIR BILATERAL [address] [place] [address] (Wo rk) 06/25/2022 Ancillary Procedure Cardiology Kirk Silver MD [address] [place] [address] (Wo rk) Scheduled Procedures Name Priority Associated [...] Priority Date/Time Associated Diagnosis Comme nts XR SHOULDER LEFT 2 Routine 12/30/2019 1:53 PM Chronic left Res ults for this VIEWS CDT shoulder pain procedure are in the results section. documented in this encounter Results XR Shoulder Left 2 Views (12/30/2019 1:53 [...] changes of glenohumeral joint. 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
--- OUTSIDE RECORDS SUMMARY | 2022-05-02 12:36 | XMS_ITS | Encounter Summary ---
:1950 Author Organization [place] Address [address] [facility] [place] [address] Care Team Providers Name Role Phone Anatoliy Jackson MD Primary Care Provider Heath More MD Unavailable Peter Gipson MD Unavailable Reason for Visit Diagnostic Imaging XR (Routine) - Closed Specialty Diagnoses / Procedures Referred By Contact Refer red To Contact Diagnoses Cervical radicular pain Peter Mcmullen MD Procedures XR Cervical Spine 2/[address] [place], [place] [address] Referral ID Status Reason Start Date Expiration Date Visits Requ ested Visits Authorized [id number] Closed 12/30/2019 12/29/2020 1 1 Encounter Details Date Type Department Care Team Description 12/30/2019 Ancillary Procedure [facility] Arie Mcmullen Cervical radicular XRay MD Mahendra pain [address] [facility] [address] [place] [address] [phone] Social History Tobacco Use Types Packs/Day Years [...] [address] [place] [address] (Wo rk) 05/15/2022 Surgery Surgery Neo Torres MD BLEPHAROPLASTY BILATERAL [place] [facility] PTOSIS REPAIR BILATERAL [address] [place] [address] (Wo rk) 06/25/2022 Ancillary Procedure Cardiology Kirk Silver MD [address] [place] [address] (Wo rk) Scheduled Procedures Name Priority Associated [...] Priority Date/Time Associated Diagnosis Comme nts XR CERVICAL SPINE Routine 12/30/2019 1:54 PM Cervical radicula r Results for this 2/3 VIEWS CDT pain procedure are i n the results section. documented in this encounter Results XR Cervical Spine 2/3 [...] C5-C6. The visualized lung apices are clear. Li bonnie old healed fracture deformity of left clavicle. [...] C5-C6. The visualized lung apices are clear. Li bonnie old healed fracture deformity of left clavicle. Impression: Mild degenerative changes. 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
--- OUTSIDE RECORDS SUMMARY | 2022-05-02 12:37 | XMS_ITS | Encounter Summary ---
:1950 Author Organization [place] Address [address] [facility] [place] [address] Care Team Providers Name Role Phone Anatoliy Jackson MD Primary Care Provider Heath More MD Unavailable Peter Gipson MD Unavailable Reason for Visit Reason Comments Consult Coronary artery disease - Closed Specialty Diagnoses / Procedures Referred By Contact Refer red To Contact Diagnoses Coronary artery disease involving makah coronary artery of makah heart without angina pectoris Hyperlipidemia LDL goal <70 S/P coronary artery stent placement Peter Aguiar MD [address] [place] [address] Referral ID Status Reason Start Date Expiration Date Visits Requ ested Visits Authorized [id number] Closed 11/30/2018 11/30/2019 1 1 Encounter Details Date Type Department Care Team Description 12/01/2018 Office Visit [facility] Peter Aguiar MD [address] [place] [id number] Coronary artery disease involving makah coronary artery of makah heart without angina pectoris; [facility] [address] [facility] [place] [address] Hyperlipidemia LDL goal <70; [facility] S/P coronary artery stent pl acement; [address] [facility] hypertension [address] [place] [address] Social History Tobacco Use Types [...] PM CDT documented as of this encounter Last Filed Vital Signs Vital Sign Reading Time Taken Comments Blood Pressure 140/64 12/01/2018 12:35 PM CDT Pulse 60 12/01/2018 12:35 PM CDT Temperature - - Respiratory Rate - - Oxygen Saturation 99% 12/01/2018 12:35 PM CDT Inhaled Oxygen Concentration - - Weight 103.4 kg (228 lb) 12/01/2018 12:35 PM CDT Height - - Body Mass Index 31.8 11/30/2017 10:01 AM CDT documented in this encounter Patient Instructions Patient InstructionsSePrabhjot stone PA-C - 12/01/2018 12:30 PM CDT Continue current medications. Start walking program. If you have worsening/increasing leg discomfort, chest discomfort, shortness of breath, please let us know. Otherwise, see Dr. Aguiar in 1 year. I will not order labs as these will likely be done with [facility] prior to the appointment. If they are not done at that appt, we can get them here. documented in this encounter Progress Notes Prabhjot Lee PA-C - 12/01/2018 12:30 PM CDT CARDIOLOGY CLINIC PROGRESS NOTE DOS: 12/01/2018 Nikita Anderson : 1950, 68 year old History: I had the pleasure of meeting Nikita Anderson today in the cardiology clinic for annual follow up. He is a patient of Dr. Aguiar. Nikita is a pleasant 68 year old man with history of CAD s/p stent to Cx 04/09/15, HTN, hyperlipidemia,diabetes, CKD3. He had developed limiting and progressive angina in 2014, mainly manifested by dyspnea on exertion and exertional fatigue with declining functional status.?? Coronary angiography in spring showed circumflex disease as well as proximal right PDA disease although the right system was fairly modest caliber.?? He did not improve on multiple medical therapy, and underwent complex stenting of the ostial circumflex, and mid circumflex and second obtuse marginal bifurcation lesion 04/09/18.?? Prior to prostate surgery in 2016 surgery??a stress study was abnormal. ??He underwent repeat angiography??a year after stenting. ??This showed that the proximal and mid circumflex stents were widely patent.?The right PDA lesion was 50-60%??did not appear significant.?The??OM2 bifurcation lesionstent was totally occluded with left to left collaterals.? Interval History: 11/30/17 Dr. Aguiar, CAD stable. Noted intermittent claudication of calves. Advised walking program. No med changes made. 03/26/18 pt reported episode of chest pressure/tightness while walking. Dr. Aguiar advised to stay active and report any sxs. The calf discomfort and chest pressure went away. Now presents today for annual follow up. He notes is out of shape after the winter. He works around the house and this can tire him out, so then he does not get his walks in. Has not done much for walking. Not having SOB like he had prior to coronary stenting in 2014. He is not having other chest discomfort, denies orthopnea, edema, PND . Denies palpitations dizziness or syncope. ??He denies orthostasis, palpitations, myalgias or muscle weakness. Denies focal neurologic symptoms. Does have significant lower extremity peripheral neuropathy related to his diabetes. He saw emblem maker 11/24/18. Labs showed: TC 121 HDL 32 LDL 59 TG 240 K 4.5 Creat 1.63 BUN 51 A1C 7.9 In reviewing his chart at one time LDLs were averaging around 130 but remotely been as high as 180. 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 BPs are a bit labile. 10/01/18 at PCP office SBP was 138. 11/25/18 SBP was 114. 116/60 at [facility] office 11/24/18. Today it is 140/64. ROS: Skin: Negative for Eyes: Positive for visual blurring ENT: Positive for hearing loss Respiratory: Negative for Cardiovascular: Negative Gastroenterology: Positive for diarrhea Genitourinary: not assessed Musculoskeletal: Positive for Neurologic: Positive for numbness or tingling of feet Psychiatric: Positive for sleep disturbances;depression Heme/Lymph/Imm: Negative for Endocrine: Positive for diabetes PAST MEDICAL HISTORY: Past Medical History: Diagnosis [...] 0.79, 70-80% OM3 -FFR 0.77, 70-80% OM4, SOCIAL HISTORY: Social History Socioeconomic History ??? Marital status: Spouse name: None ??? Number of children: None ??? Years of education: None ??? Highest education level: None Occupational History ??? None Social Needs ??? Financial resource strain: None ??? Food insecurity: Worry: None Inability: None ??? Transportation needs: Medical: None Non-medical: None Tobacco Use ??? Smoking status: Never Smoker ??? Smokeless tobacco: Never Used Substance and Sexual Activity ??? Alcohol use: Yes Alcohol/week: 0.0 oz Comment: beer and wine, every couple days ??? Drug use: No ??? Sexual activity: None Lifestyle ??? Physical activity: Days per week: None Minutes per session: None ??? Stress: None Relationships ??? Social connections: Talks on phone: None Gets together: None Attends sikh service: None Active member of club or organization: None Attends meetings of clubs or organizations: None Relationship status: None ??? Intimate partner violence: Fear of current or ex partner: None [...] Not Asked Social History Narrative ??? None FAMILY HISTORY: Family History Problem Relation Age of Onset ??? Hypertension Mother ??? Diabetes Maternal Grandmother ??? Hypertension Maternal Grandmother ??? Hypertension Maternal Grandfather MEDS: Current Outpatient Medications on File Prior to Visit: aspirin 325 MG tablet Take 81 mg by mouth daily cloNIDine (CATAPRES) 0.1 MG tablet Take 0.1 mg by mouth 2 times daily GABAPENTIN PO Take 300 mg by mouth as needed Insulin Lispro (HUMALOG SC) LANTUS 100 UNIT/ML SC SOLN as directed nitroGLYcerin (NITROSTAT) 0.4 MG sublingual tablet Take 1 tab under the tongue for chest pain, may repeat every 5 minutes x2. If pain not relieved then seek medical attention ONE TOUCH ULTRA TEST STRP as directed sertraline (ZOLOFT) 50 MG tablet Take 50 mg by mouth daily SYRINGE B-D MICRO FINE 1/2 CC SYRINGES as directed Turmeric 500 MG CAPS finasteride (PROSCAR) 5 MG tablet Take 5 mg by mouth INSULIN LISPRO (HUMAN) 100 UNIT/ML SC SOLN As directed (Patient not taking: No sig reported) No current facility-administered medications on file prior to visit. ALLERGIES: Allergies Allergen Reactions ??? Atorvastatin Other (See Comments) Congestion ??? Epinephrine Palpitations PHYSICAL EXAM: Vitals: BP 140/64 (BP Location: Right arm) Pulse 60 Wt 103.4 kg (228 lb) HC 180.3 cm (71) SpO2 99% BMI 31.80 kg/m?? Constitutional: cooperative, alert and oriented, well developed, well nourished, in no acute distress Skin: warm and dry to the touch, no apparent skin lesions or masses noted Head: normocephalic, no masses or lesions Eyes: pupils equal and round;sclera white;conjunctivae and lids unremarkable ENT: no pallor or cyanosis Neck: JVP normal;no carotid bruit Respiratory: clear to auscultation;normal respiratory excursion Cardiac: regular rhythm;normal S1 and S2 systolic murmur;grade 1 GI: abdomen soft;BS normoactive;non-tender Vascular: venous stasis changes bilaterally Extremities and Musculoskeletal: no deformities, clubbing, cyanosis, erythema observed stasis pigmentation Neurological: no gross motor deficits;affect appropriate LABS/DATA: I reviewed the following: See Summary above for 11/24/18 labs done at endocrinology appt ASSESSMENT/PLAN: 1-angina pectoris.? With his current activity level he is not having significant angina. Per Dr. Aguiar, the residual unrevascularized territories are very small first obtuse marginal which is too small to stent, and the occluded OM 2 which is modest sized. ??Would continue medical therapy as long t he symptoms controlled 2-coronary artery disease. Status post multiple circumflex stents, one of which was ostial. ??Coronary angiogram in 2016 performed 1 year post-circumflex stenting, showed widely patent ostial stent with no disease in the left main. ??Mid circumflex stent widely patent with large posterior lateral systems vessels supplied by this. ??Modest second marginal chronically occluded. Normal ejection fraction no heart failure or arrhythmia symptoms. Blood pressure and lipids well controlled. Not smoking. Needs much more work on diabetes control. A1C was 7.9 on 11/24/18. ?? Exercise/activity not very adequate, especially over the winter. We discussed an exercise program today.?? Overall risk factor intervention is going well.?He described pretty good Mediterranean diet. I did discuss additional benefits of weight loss. ?? 3-dyslipidemia, at goal with LDL 59 on 11/24/18, and is tolerating statin. This will be continued. ?? 4-hypertension, has been controlled. 10/01/18 at PCP office SBP was 138. 11/24/18 was 116/60 at [facility] office. 11/25/18 SBP was 114 at PCP office. Today it is 140/64. Currently without orthostatic symptoms. Continue current regimen. Meds refilled. Follow up: Dr. Aguiar in 1 year. Labs will be done at encrinologist appt. If not done, he should have them here. See us if new sxs. Prabhjot Tapia. 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 REPAIR, ECTROPION, EYE, Dermatochalasis 05/15/2022 7:30 AM CDT BILATERAL 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 documented as of this encounter Visit Diagnoses Diagnosis Coronary artery disease involving makah coronary artery of makah heart without angina pectoris Hyperlipidemia LDL goal <70 Other and unspecified hyperlipidemia S/P coronary artery stent placement Postsurgical percutaneous transluminal c oronary angioplasty status Essential hypertension Unspecified essential hypertension 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
--- OUTSIDE RECORDS SUMMARY | 2022-05-02 12:37 | XMS_ITS | Encounter Summary ---
:1950 Author Organization [place] Address [address] [place] [address] Care Team Providers Name Role Phone Anatoliy Jackson MD Primary Care Provider Heath More MD Unavailable Peter Gipson MD Unavailable Reason for Visit Reason Onset Date Comments Refill Request 09/02/2016 Refill on amlodipine , carvedilol, nitroglycerin Encounter Details Date Type Department Care Team Description 09/02/[address] [facility] SlettebBrenda may efill Request (Refill on Clinic Brenda Donnelly RN amlodipine, carvedilol, [address] [facility] [address] [place] [address] Social History Tobacco Use Types Packs/Day Years Used Date Never Smoker Alcohol Use Standard Drinks/Week Comments Yes 0 [...] 05/15/2022 Hospital Encounter Surgery Singh Torres MD [facility] [address] [place] [id number] (Wo rk) 05/15/2022 Surgery Surgery Neo Torres MD BLEPHAROPLASTY BILATERAL [facility] PTOSIS REPAIR BILATERAL [address] [place] [id number] (Wo rk) 06/25/2022 Ancillary Procedure Cardiology Kirk Silver MD [address] [place] [id number] (Wo rk) Scheduled Procedures Name Priority Associated Diagnoses Date/Time REPAIR, PTOSIS, BILATERAL, Dermatochalas is 05/15/2022 7:30 AM CDT WITH BILATERAL BLEPHAROPLASTY 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 REPAIR, ECTROPION, EYE, Dermatochalasis 05/15/2022 7:30 AM CDT BILATERAL 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 documented as of this encounter Visit Diagnoses Diagnosis Coronary artery disease involving [place] coronary artery of eastern [place] heart without angina pectoris - Primary Essential hypertension Unspecified essential hypertension CAD (coronary artery disease) Coronary atherosclerosis of unspecified type of vessel, eastern shoshone or graft 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
--- OUTSIDE RECORDS SUMMARY | 2022-05-02 12:37 | XMS_ITS | Encounter Summary ---
:1950 Author Organization [place] Address [address] [facility] [place] [address] Care Team Providers Name Role Phone Anatoliy Jackson MD Primary Care Provider Heath More MD Unavailable Peter Gipson MD Unavailable Reason for Visit Reason Comments Advance Care Planning Encounter Details Date Type Department Care Team Description 10/22/2016 Documentation Only [facility] [address] [facility] Planning [address] [place] [address] Social History Tobacco Use Types Packs/Day [...] 05/15/2022 Hospital Encounter Surgery Singh Torres MD [facility] [address] [place] [address] (Wo rk) 05/15/2022 Surgery Surgery Neo Torres MD BLEPHAROPLASTY BILATERAL [facility] PTOSIS REPAIR BILATERAL [address] [place] [id number] [phone] (Wo rk) 06/25/2022 Ancillary Procedure Cardiology Kirk Silver MD [address] [place] [address] (Wo rk) Scheduled Procedures Name Priority Associated Diagnoses Date/Time REPAIR, PTOSIS, BILATERAL, Dermatochalas is 05/15/2022 7:30 AM CDT WITH BILATERAL BLEPHAROPLASTY 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 REPAIR, ECTROPION, EYE, Dermatochalasis 05/15/2022 7:30 AM CDT BILATERAL 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 documented as of this encounter Visit Diagnoses Diagnosis Advance Care Planning Other specified counseling 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
--- OUTSIDE RECORDS SUMMARY | 2022-05-02 12:37 | XMS_ITS | Encounter Summary ---
:1950 Author Organization [place] Address [address] [place] [address] Care Team Providers Name Role Phone Anatoliy Jackson MD Primary Care Provider Heath More MD Unavailable Peter Gipson MD Unavailable Reason for Visit Reason Onset Date Comments Refill Request 01/12/2018 Encounter Details Date Type Department Care Team Description 01/12/[address] [facility] Peter Aguiar, Refill Request Clinic Aun MAHER [address] [place] [address] [place] [address] [phone] Social History Tobacco Use Types Packs/Day Years [...] 05/15/2022 Hospital Encounter Surgery Singh Torres MD [facility] [address] [place] [address] (Wo rk) 05/15/2022 Surgery Surgery Neo Torres MD BLEPHAROPLASTY BILATERAL [facility] PTOSIS REPAIR BILATERAL [address] [place] [address] (Wo rk) 06/25/2022 Ancillary Procedure Cardiology Kirk Silver MD [address] [place] [id number] (Wo rk) Scheduled Procedures Name Priority Associated Diagnoses Date/Time REPAIR, PTOSIS, BILATERAL, Dermatochalas is 05/15/2022 7:30 AM CDT WITH BILATERAL BLEPHAROPLASTY 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 REPAIR, ECTROPION, EYE, Dermatochalasis 05/15/2022 7:30 AM CDT BILATERAL 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 documented as of this encounter Visit Diagnoses Diagnosis Coronary artery disease involving [place] coronary artery of [place] heart without angina pectoris 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 [address] [place] [address] documented as of this encounter
--- OUTSIDE RECORDS SUMMARY | 2022-05-02 12:37 | XMS_ITS | Encounter Summary ---
:1950 Author Organization [place] Address [address] [facility] [place] [address] Care Team Providers Name Role Phone Anatoliy Jackson MD Primary Care Provider Heath More MD Unavailable Peter Gipson MD Unavailable Reason for Visit Reason Comments acp Encounter Details Date Type Department Care Team Description 12/01/2018 Documentation Only [facility] [address] [facility] [address] [place] [address] Social History Tobacco Use Types Packs/Day [...] MD [facility] [address] [place] [address] (Wo rk) 05/15/2022 Surgery Surgery Neo Torres MD BLEPHAROPLASTY BILATERAL [place] [facility] PTOSIS REPAIR BILATERAL [address] [place] [phone] (Wo rk) 06/25/2022 Ancillary Procedure Cardiology Kirk Silver MD [address] [place] [phone] (Wo rk) Scheduled Procedures Name Priority Associated [...] on filedocumented in this encounter Care Teams Touch Up Painter Hand Relationship Specialty Start Date End Date Anatoliy Jackson MD PCP - General 05/14/12 Heath More PCP - Internal Medicine INTERNAL MEDICINE - 01/06/14 MD Andreas ENDOCRINOLOGY, [facility] [address] [place] [phone] Petre Gipson PCP - Urology 04/02/15 MD Jordan [facility] [address] [place] [address] [address] [place] [address] documented as of this encounter
--- OUTSIDE RECORDS SUMMARY | 2022-05-02 12:37 | XMS_ITS | Encounter Summary ---
:1950 Author Organization [place] Address [address] [facility] [place] [address] Care Team Providers Name Role Phone Anatoliy Jackson MD Primary Care Provider Heath More MD Unavailable Peter Gipson MD Unavailable Reason for Visit Reason Comments Leg Swelling Encounter Details Date Type Department Care Team Description 04/27/2016 Emergency [facility] Fredy Mcneil MD Swelling of right lower extremity; [facility] Emergency Dep t [facility] Renal insufficiency; [address] [place] Anemia due to blood loss, acute [place], [place] [address] [place] [address] [place] [address] (Wo rk) Social History Tobacco Use Types [...] Sign Reading Time Taken Comments Blood Pressure 175/74 04/27/2016 10:07 PM CDT Pulse 74 04/27/2016 8:21 PM CDT Temperature 37.2 ??C (98.9 ??F) 04/27/2016 8:21 PM CDT Respiratory Rate 18 04/27/2016 8:21 PM CDT Oxygen Saturation 95% 04/27/2016 10:07 PM CDT Inhaled Oxygen Concentration - - Weight - - Height - - Body Mass Index - - documented in this encounter Discharge Instructions Discharge InstructionsFredy Mcneil MD - 04/27/2016 10:00 PM CDT Elevate leg Continue to follow p on your blood count and kidney function documented in this encounter Medications at Time of Discharge Medication Sig Dispensed Refills Start Date End Date ONE TOUCH ULTRA TEST as directed 100 0 06/22/2006 STRPIndications: Type II or unspecified type diabetes mellitus without mention of complication, not stated as uncontrolled SYRINGE B-D MICRO FINE as directed 100 0 09/18/2004 1/2 CC SYRINGES amLODIPine (NORVASC) 5 Take 1 tablet (5 mg) 90 tablet 3 04/201609/02/2016 MG tabletIndications: by mouth daily Coronary artery disease involving bois forte coronary artery of bois forte heart without angina pectoris, Essential hypertension aspirin 325 MG tablet Take 81 mg by mouth 0 02/18/2021 daily carvedilol (COREG) 12.5 Take 1 tablet (12.5 180 tablet 3 04/201609/02/2016 MG tabletIndications: mg) by mouth 2 times Coronary artery disease daily (with meals) involving bois forte coronary artery of bois forte heart without angina pectoris cloNIDine (CATAPRES) 0.1 Take 0.1 mg by mouth 0 04/18/2021 MG tablet 2 times daily clopidogrel (PLAVIX) 75 Take 1 tablet (75 90 tablet 2 03/1809/02/2016 MG tabletIndications: mg) by mouth daily Postsurgical percutaneous transluminal coronary angioplasty status, Status post coronary angioplasty, Coronary artery disease involving bois forte coronary artery of bois forte heart without angina pectoris finasteride (PROSCAR) 5 Take 5 mg by mouth 0 02/18/2021 MG tablet GABAPENTIN PO Take 300 mg by mouth 0 0 02/18/2021 as needed INSULIN LISPRO (HUMAN) As directed One month 0 01/07/2005 0 02/18/2021 100 UNIT/ML SC SOLNIndications: Type II or unspecified type diabetes mellitus without mention of complication, not stated as uncontrolled isosorbide mononitrate Take 1 tablet (30 90 tablet 3 201409/02/2016 (IMDUR) 30 MG 24 hr mg) by mouth daily tabletIndications: CAD (coronary artery disease) LANTUS 100 UNIT/ML SC as directed 100 0 09/18/2004 SOLN lisinopril-hydrochloroth Take 1 tablet by 0 12/01/2018 iazide mouth daily (PRINZIDE,ZESTORETIC) 20-12.5 MG per tabletIndications: Hypertension nitroglycerin Take 1 tab under the 25 tablet 3 12/20/2015 0 09/02/2016 (NITROSTAT) 0.4 MG SL tongue for chest tabletIndications: CAD pain, may repeat (coronary artery every 5 minutes x2. disease) If pain not relieved then seek medical attention simvastatin (ZOCOR) 40 Take 40 mg by mouth 0 11/30/2017 MG tablet daily documented as of this encounter ED Notes Fredy Mcneil MD - 04/27/2016 8:32 PM CDT History Chief Complaint: Leg Swelling HPI Nikita Anderson is a 65 year old male with a complex medical history who presents with leg swelling. The patient reports on 04/16 he had prostate surgery due to cancer. He does note three days ago he developed some right ankle stiffness which he was able to tolerate. The patient noticed in the shower today he right foot and ankle swelling, right worse than left, and was concerned which prompts his visit. The patient does note following his surgery he was taken off Plavix and aspirin and has not taken these for a few days. He has appointment with his primary care tomorrow with plans to check multiple labs including hemoglobin as he reports he lost over a liter of blood during surgery. The patient denies any ankle pain, chest pain, or any associated symptoms. The patient also had recent heart catheterization 04/04. Allergies: Atorvastatin Epinephrine Medications: Clopidogrel (plavix) 75 mg tablet Nitroglycerin (nitrostat) 0.4 mg sl tablet Finasteride (proscar) 5 mg tablet Amlodipine (norvasc) 5 mg tablet Carvedilol (coreg) 12.5 mg tablet Isosorbide mononitrate (imdur) 30 mg 24 hr tablet Simvastatin (zocor) 40 mg tablet Clonidine (catapres) 0.1 mg tablet Aspirin 325 mg tablet Gabapentin po Lisinopril-hydrochlorothiazide (prinzide,zestoretic) 20-12.5 mg per tablet One touch ultra test vi strp Insulin lispro (human) 100 unit/ml sc soln Syringe b-d micro fine 1/2 cc syringes Lantus 100 unit/ml sc soln Past Medical History: 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 The patient denies smoking. The patient denies alcohol consumption. Review of Systems Cardiovascular: Positive for leg swelling. Negative for chest pain. All other systems reviewed and are negative. Physical Exam First Vitals: BP: (!) 164/116 mmHg Pulse: 74 Heart Rate: 74 Temp: 98.9 ??F (37.2 ??C) Resp: 18 SpO2: 100 % Physical Exam Constitutional: He appears well-developed and well-nourished. HENT: Right Ear: External ear normal. Left Ear: External ear normal. Mouth/Throat: Oropharynx is clear and moist. No oropharyngeal exudate. TM's clear bilaterally Eyes: Conjunctivae are normal. Pupils are equal, round, and reactive to light. No scleral icterus. Neck: Normal range of motion. Neck supple. No JVD present. Cardiovascular: Normal rate, regular rhythm, normal heart sounds and intact distal pulses. Exam reveals no gallop and no friction rub. No murmur heard. Pulmonary/Chest: Effort normal and breath sounds normal. No respiratory distress. He has no wheezes.He has no rales. Abdominal: Soft. Bowel sounds are normal. He exhibits no distension and no mass. There is no tenderness. Multiple low abdominal incisions appear without separation and redness Musculoskeletal: Normal range of motion. He exhibits edema. He exhibits no tenderness. 2+ RLE edema below the R knee. No calf tenderness in BLE. No redness in the R leg. 2+ distal pulses BLE Neurological: He is alert. Skin: Skin is warm and dry. No rash noted. Psychiatric: He has a normal mood and affect. Emergency Department Course Imaging: Radiographic findings were communicated with the patient who voiced understanding of the findings. US Lower Extremity Venous Duplex right: No DVT demonstrated. Results per radiology. Laboratory: CBC: RBC 2.78 (L), HGB 8.2 (L), ow wnl (WBC 9.9, PLT 207) INR: 1.03 CMP: GLU 136 (H), Creat 1.49 (H), Calc 8.3 (L), Alb 2.7 (L), Prot tot 6.2 (L), ow wnl Interventions: Neurontin 300 mg tablet Emergency Department Course: Nursing notes and vitals reviewed. I performed an exam of the patient as documented above. The above imaging study(s) were ordered with results noted above. Blood drawn. This was sent to the lab for further testing, results above. The patient received the intervention(s) above. Findings and plan explained to the Patient. Patient discharged home with instructions regarding supportive care, medications, and reasons to return. The importance of close follow-up was reviewed. Impression & Plan Medical Decision Making: Nikita Anderson is a 65 year old male presents with lower extremity swelling since his prostate surgery. On examination he does have right lower extremity swelling from the knee down as compared to the left. There is no redness. He does have a history of renal insufficieny with recent surgery and angiogram. He apparently has post operative bleeding causing anemia. He says his HGB was 8.6 last time it was checked. His exam here and does not show any specific finding other than right leg swelling. His HGB is 8.2 today. Creatinine is 1.49 which is definitely improved from what he tells me at last check. Lower extremity ultrasound was negative. I think likely the swelling is from post surgery as well as renal insufficiency and I do not believe this is anything significant at this point. I do believe he should continue to elevate which he has not been doing. He is reassured. He has a follow up tomorrow with his PCP and I asked him to continue to follow up and elevate as well as wear compression stockings. Diagnosis: ICD-10-CM 1. Swelling of right lower extremity M79.89 2. Renal insufficiency N28.9 3. Anemia due to blood loss, acute D62 Disposition: Discharged. I Flavio Isaac, am serving as a scribe at 11:07 PM on 04/27/2016 to document services personally performed by Dr. Mcneil, based on my observations and the provider's statements to me 04/27/2016 [facility] EMERGENCY DEPARTMENT Fredy Mcneil MD 04/28/16 0013 Enriqueta Thompson RN - 04/27/2016 8:20 PM CDT Pt with bilateral lower leg swelling which states she noticed last week, worse tonight. Pt had robotic prostate reduction surgery last Thursday and discharged Thursday, denies SOB. ABC's intact, alert and oriented x3. documented in this encounter Plan of Treatment Upcoming Encounters Date Type Specialty Care Team Description 05/15/2022 Hospital Encounter Surgery Singh Torres MD [facility] [address] [place] [id number] (Wo rk) 05/15/2022 Surgery Surgery Neo Torres MD BLEPHAROPLASTY BILATERAL [facility] PTOSIS REPAIR BILATERAL [address] [place] [place] [id number] (Wo rk) 06/25/2022 Ancillary Procedure Cardiology Kirk Silver MD [address] [place] [id number] (Wo rk) Scheduled Procedures Name Priority Associated [...] Name Priority Date/Time Associated Comments Diagnosis US LOWER EXTREMITY STAT 04/27/2016 9:25 PM Res ults for this VENOUS DUPLEX RIGHT CDT procedur e are in the results section. CBC WITH PLATELETS & STAT 04/27/2016 8:43 PM R esults for this DIFFERENTIAL CDT procedure are i n the results section. INR STAT 04/27/2016 8:43 PM Results f or this CDT procedure are i n the results section. COMPREHENSIVE STAT 04/27/2016 8:43 PM Results for this METABOLIC PANEL CDT procedure ar e in the results section. documented in this encounter Results US Lower Extremity Venous Duplex Right (04/27/2016 9:25 PM CDT) Anatomical Region Laterality Modality Lower Extremity Ultrasound Specimen (Source) Anatomical Location Collection Method / Collectio n Time Received Time / Laterality Volume Impressions 04/27/2016 10:47 PM CDT IMPRESSION: No DVT demonstrated. PATSY ORTIZ MD Narrative 04/27/2016 10:47 PM CDT ULTRASOUND VENOUS LOWER EXTREMITY UNILATERAL RIGHT ??04/27/2016 9:25 PM HISTORY: Swelling. COMPARISON: None. TECHNIQUE: Ultrasound calvillo scale, Color Doppler flow, and spectral Doppler waveform analysis performed. FINDINGS: The right common femoral, supe rficial femoral, popliteal and posterior tibial veins are patent and fu lly compressible and demonstrate normal venous Doppler flow. Procedure Note Patsy Ortiz MD - 04/27/2016Fo rmatting of this note might be different from the original. ULTRASOUND VENOUS LOWER EXTREMITY UNILAT ERAL RIGHT 04/27/2016 9:25 PM HISTORY: Swelling. COMPARISON: None. TECHNIQUE: Ultrasound calvillo scale, Color Doppler flow, and spectral Doppler waveform analysis performed. FINDINGS: The right common femoral, supe rficial femoral, popliteal and posterior tibial veins are patent and fu lly compressible and demonstrate normal venous Doppler flow. IMPRESSION: No DVT demonstrated. PATSY ORTIZ MD Fredy Mcneil MD IMG US ORDERABLES (ABNORMAL) Comprehensive metabolic panel (04/27/2016 8:43 PM CDT) Analysis Performed At Patho logist Time Signature Sodium 140 133 - 144 [place] mmol/L [facility] Potassium 4.0 3.4 - 5.3 [place] mmol/L [facility] Chloride 107 94 - 109 [place] mmol/L [facility] Carbon Dioxide 30 20 - 32 [place] mmol/L [facility] Anion Gap 3 3 - 14 [place] mmol/L [facility] Glucose 136 (H) 70 - 99 [place] mg/dL [facility] Urea Nitrogen 26 7 - 30 [place] mg/dL [facility] Creatinine 1.49 (H) 0.66 - [place] 1.25 mg/dL [facility] GFR Estimate 47 (L) >60 [place] mL/min/1.7 [facility] m2 HOSPITAL Comment: Non GFR Calc GFR Estimate If Black 57 (L) >60 mL/min/1.7m2 F [facility] Comment: GFR Calc Calcium 8.3 (L) 8.5 - 10.1 mg/dL [facility] Bilirubin Total 0.4 0.2 - 1.3 mg/dL [facility] Albumin 2.7 (L) 3.4 - 5.0 g/dL [facility] Protein Total 6.2 (L) 6.8 - 8.8 g/dL [facility] Alkaline Phosphatase 47 40 - 150 U/L [facility] ALT 12 0 - 70 U/L [facility] AST 14 0 - 45 U/L [facility] Specimen Anatomical Collection Method Collection Time Receive d Time (Source) Location / / Volume Laterality Blood specimen 04/27/2016 8:43 PM 016 9:04 (specimen) CDT PM CDT Fredy Mcneil MD LAB - BLOOD ORDERABLES Performing Organization Address City/State/ZIP Code Phon e Number M [facility] [address] [place], [place] [address] [facility] [address] [place], [place] [address] [address] [phone] INR (04/27/2016 8:43 PM CDT) P athologist Signature INR 1.03 0.86 - 1.14 [facility] Specimen Anatomical Collection Method Collection Time Receive d Time (Source) Location / / Volume Laterality Blood specimen 04/27/2016 8:43 PM 016 9:04 (specimen) CDT PM CDT Fredy Mcneil MD LAB - BLOOD ORDERABLES Performing Organization Address City/State/ZIP Code Phon e Number [facility] [address] [address] [facility] [address] [phone] (ABNORMAL) CBC with platelets differential (04/27/2016 8:43 PM CDT) Patholo gist Method Time Signature WBC 9.9 4.0 - [place] 11.0 [facility] 10e9/[facility] RBC Count 2.78 (L) 4.4 - 5.9 [place] 10e12/L [facility] Hemoglobin 8.2 (L) 13.3 - [place] 17.7 g/dL [facility] Hematocrit 24.5 (L) 40.0 - [place] 53.0 % [facility] MCV 88 78 - 100 [facility] MCH 29.5 26.5 - [place] 33.0 pg [facility] MCHC 33.5 31.5 - [place] 36.5 g/dL [facility] RDW 12.9 10.0 - [place] 15.0 % [facility] Platelet Count 207 150 - 450 [place] 10e9/L [facility] Diff Method Automated [place] Method [facility] % Neutrophils 68.8 % [facility] % Lymphocytes 18.2 % [facility] % Monocytes 8.6 % [facility] % Eosinophils 3.7 % [facility] % Basophils 0.4 % [facility] % Immature 0.3 % [place] Granulocytes [facility] Nucleated RBCs 0 0 /100 [facility] Absolute 6.8 1.6 - 8.3 [place] Neutrophil 10e9/L [facility] Absolute 1.8 0.8 - 5.3 [place] Lymphocytes 10e9/L [facility] Absolute 0.9 0.0 - 1.3 [place] Monocytes 10e9/L [facility] Absolute 0.4 0.0 - 0.7 [place] Eosinophils 10e9/[facility] Absolute 0.0 0.0 - 0.2 [place] Basophils 10e9/[facility] Abs Immature 0.0 0 - 0.4 [place] Granulocytes [address] [place] [address] Absolute 0.0 [place] Nucleated RBC [facility] Specimen Anatomical Collection Method Collection Time Receive d Time (Source) Location / / Volume Laterality Blood specimen 04/27/2016 8:43 PM 016 9:04 (specimen) CDT PM CDT Fredy Mcneil MD LAB - BLOOD ORDERABLES Performing Organization Address City/State/ZIP Code Phon e Number M [place] [address] [place] [address] [facility] [address] [phone] documented in this encounter Visit Diagnoses Diagnosis Swelling of right lower extremity Swelling of limb Renal insufficiency Unspecified disorder of kidney and urete r Anemia due to blood loss, acute Acute posthemorrhagic anemia 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 Scheduled Medication Order 04/25/2016 04/26/2016 04/27/2016 gabapentin (NEURONTIN) capsule 300 mg (COMPLETED) 2137 (Given - Provider: Clarissa Cárdenas RN) 300 mg, Oral, ONCE, On 04/27/16 at 2134, For 1 dose documented in this encounter Care Teams Special Loan Officer Relationship Specialty Start Date End Date Anatoliy [place] MD PCP - General 05/14/12 Heath More PCP - Internal Medicine INTERNAL MEDICINE - 01/06/14 MD Andreas [facility], [facility] [address] [facility] [address] [place] [phone] Peter Gipson PCP - Urology 04/02/15 MD [facility] [address] [place] [id number] documented as of this encounter
--- OUTSIDE RECORDS SUMMARY | 2022-05-02 12:37 | XMS_ITS | Encounter Summary ---
:1950 Author Organization [place] Address [address] [place] [address] Care Team Providers Name Role Phone Anatoliy [place] MD Primary Care Provider Heath More MD Unavailable Peter Gipson MD Unavailable Reason for Visit Reason Onset Date Comments Refill Request 12/18/2017 amolodipine Encounter Details Date Type Department Care Team Description 12/18/2017 Refill [facility] Peter Ref ill Request Clinic Anu Olmstead MD (amolodipine ) [address] [place] [address] [address] [place] [phone] [place] [id number] (Wo rk) Social History Tobacco Use Types [...] [address] [place] [address] (Wo rk) 05/15/2022 Surgery Surgery Neo Torres MD BLEPHAROPLASTY BILATERAL [facility] [place] PTOSIS REPAIR BILATERAL [address] [place] [address] (Wo rk) 06/25/2022 Ancillary Procedure Cardiology Kirk Silver MD [address] [place] [id number] (Wo rk) Scheduled Procedures Name Priority Associated Diagnoses Date/Time REPAIR, PTOSIS, BILATERAL, Dermatochalas is 05/15/2022 7:30 AM CDT WITH BILATERAL BLEPHAROPLASTY 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 REPAIR, ECTROPION, EYE, Dermatochalasis 05/15/2022 7:30 AM CDT BILATERAL 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 documented as of this encounter Visit Diagnoses Diagnosis Coronary artery disease involving wrangell coronary artery of wrangell heart without angina pectoris Essential hypertension Unspecified essential hypertension 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
--- OUTSIDE RECORDS SUMMARY | 2022-05-02 12:37 | XMS_ITS | Encounter Summary ---
:1950 Author Organization [place] Address [address] [facility] [place] [address] Care Team Providers Name Role Phone Anatoliy Jackson MD Primary Care Provider Heath More MD Unavailable Peter Gipson MD Unavailable Reason for Referral - Closed Specialty Diagnoses / Procedures Referred By Contact Refer red To Contact Diagnoses Coronary artery disease involving [place] coronary artery of [place] heart without angina pectoris Peter Aguiar MD [address] [place] [address] Referral ID Status Reason Start Date Expiration Date Visits Requ ested Visits Authorized [id number] Closed 12/03/2017 12/03/2018 1 1 Reason for Visit Reason Comments Heart Problem 6 month f/u for CAD, HTN, dy slipidemia - Closed Specialty Diagnoses / Procedures Referred By Contact Refer red To Contact Diagnoses Coronary artery disease involving [place] coronary artery of [place] heart without angina pectoris Debra Nesbitt, CALLIE KENO WRITER/RUNNER [address] [place] [address] Referral ID Status Reason Start Date Expiration Date Visits Requ ested Visits Authorized [id number] Closed 10/08/2016 10/08/2017 1 1 Encounter Details Date Type Department Care Team Description 12/03/2016 [facility] RECOVERY UNIT OPERATOR KENO WRITER/RUNNER [address] [place] [address] Coronary artery disease involving [place] coronary artery of [place] heart without angina pectoris (Primary Dx); Heart Clinic Peter Fairchild MD [address] [place] [address] Hyperlipidemia LDL goal <70; [address] Essential hypertension with goal blood pressure less than 130/80; [address] S/P coronary artery stent pl [place] [phone] Social History Tobacco Use Types Packs/Day Years [...] Sign Reading Time Taken Comments Blood Pressure 114/62 12/03/2016 10:43 AM CDT Pulse 64 12/03/2016 10:43 AM CDT Temperature - - Respiratory Rate - - Oxygen Saturation - - Inhaled Oxygen Concentration - - Weight 101.6 kg (224 lb) 12/03/2016 10:43 AM CDT Height 180.3 cm (5' 11) 12/03/2016 10:43 AM CDT Body Mass Index 31.24 12/03/2016 10:43 AM CDT documented in this encounter Progress Notes Peter Aguiar MD - 12/03/2016 10:45 AM CDT HPI and Plan: This 66-year-old gentleman is seen in follow-up of his coronary disease, angina pectoris, and?? complex circumflex stenting (April 09, 2015). He has comorbidities of significant diabetes, hypertension, dyslipidemia. There is also some mild chronic renal insufficiency. The last 6 months he has been clinically stable. His activity has been limited by plantar fasciitis and is now starting to rapid backup. He is not having exertional or rest chest discomfort or any of his previous anginal symptoms. He denies orthostasis, palpitations, syncope or near syncope, myalgias or muscle weakness. He is without unusual dyspnea on exertion other shortness of breath or any ischemic sounding symptoms. Eventually had his TURP and so no longer needs indwelling catheter. He tolerated that well without any cardiac issues. ?? He had developed limiting and progressive angina in 2014, mainly manifested by dyspnea on exertion and exertional fatigue with declining functional status.?? Angiography in the spring showed circumflex disease as well as distal right and proximal right PDA disease although the right system wasfairly modest caliber.?? He did not improve on multiple medical therapy, and underwent stenting of the ostial circumflex, and mid circumflex and second obtuse marginal bifurcation lesion.? Prior to surgery a stress study was abnormal. He underwent repeat angiography a year after stenting.This showed at the proximal and mid circumflex stents were widely patent. The right PDA lesion was 50-60% did not appear significant. The OM to bifurcation lesion stent was totally occluded with left to left collaterals. As noted above he's been without ischemic symptoms during his surgery and during his current activity on medical therapy. ?? Exam-full exam below. Brief summary: Blood pressure well-controlled at 114/62. Pulse regular in the 60s. Lungs clear Cardiac-regular rhythm, no murmur or gallop. JVD Abdomen-no bruits or masses Extremities-posterior tibial pulses normal. Currently no edema. Full exam noted below ?? Labs today show continued excellent lipid control. Recent Labs Lab Test 12/03/16 0950 12/06/15 0812 04/09/15 0700 10/12/13 CHOL 156 113 132 154 HDL 38* 33* 38* 35* LDL 62 49 59 62 TRIG 278* 154* 174* 287* CHOLHDLRATIO -- -- 3.5 4.4 ? Impression/plan 1-angina pectoris.? With his current activity level he is not having significant angina. He feelslike this is his desired activity level but he is not doing a more vigorous workouts he was previously doing. The residual unrevascularized territories are very small first obtuse marginal which is too small to stent, and the occluded OM 2 which is modest sized. Would continue medical therapy as long the symptoms controlled .?? 2-coronary artery disease. Status post multiple circumflex stents, one of which was ostial. Angioedema 1 year showed widely patent ostial stent with no disease in the left main. Mid circumflex stent widely patent with large posterior lateral systems vessels supplied by this. Modest second diagonal chronically occluded Normal ejection fraction no heart failure or arrhythmia symptoms. Blood pressure and lipids well controlled. Not smoking. Working on diabetes control.??Lipids well controlled.?? Exercise/activity fair.?? Overall risk factor intervention is going well.? 3-dyslipidemia, at intense goal and is tolerating statin. This will be continued. 4-hypertension, very well controlled. Orthostatic symptoms and hypotension appeared to be resolved with recent decrease of his antihypertensives. ?? I recommended continuing his current regimen. Lungs remained stable I will have him back in a year Orders Placed This Encounter Procedures ??? Lipid Profile ??? ALT ??? Basic metabolic panel ??? Follow-Up with Poultry Inseminator Orders Placed This Encounter Medications ??? nitroglycerin (NITROSTAT) 0.4 MG sublingual tablet Sig: Take 1 tab under the tongue for chest pain, may repeat every 5 minutes x2. If pain not relieved then seek medical attention Dispense: 25 tablet Refill: 3 Medications Discontinued During This Encounter Medication Reason ??? nitroglycerin (NITROSTAT) 0.4 MG sublingual tablet Reorder Encounter Diagnoses Name Primary? Coronary artery disease involving [place] coronary artery of [place] heart without angina pectorisYes ? ? Hyperlipidemia LDL goal <70 ??? Essential hypertension with goal blood pressure less than 130/80 ??? S/P coronary artery stent placement CURRENT MEDICATIONS: Current Outpatient Prescriptions Medication Sig Dispense Refill ??? nitroglycerin (NITROSTAT) 0.4 MG sublingual tablet Take 1 tab under the tongue for chest pain, may repeat every 5 minutes x2. If pain not relieved then seek medical attention 25 tablet 3 ??? amLODIPine (NORVASC) 5 MG tablet Take 1 tablet (5 mg) by mouth daily 90 tablet 3 ??? carvedilol (COREG) 12.5 MG tablet Take 1 tablet (12.5 mg) by mouth 2 times daily (with meals) 180 tablet 3 ??? finasteride (PROSCAR) 5 MG tablet Take 5 mg by mouth ??? simvastatin (ZOCOR) 40 MG tablet Take 40 mg by mouth daily ??? cloNIDine (CATAPRES) 0.1 MG tablet Take 0.1 mg by mouth 2 times daily ??? aspirin 325 MG tablet Take 325 mg by mouth daily ??? GABAPENTIN PO Take 300 mg by mouth as needed ??? lisinopril-hydrochlorothiazide (PRINZIDE,ZESTORETIC) 20-12.5 MG per tablet Take 1 tablet by mouth daily ??? ONE TOUCH ULTRA TEST STRP as directed 100 prn ??? INSULIN LISPRO (HUMAN) 100 UNIT/ML SC SOLN As directed One month 0 ??? SYRINGE B-D MICRO FINE 1/2 CC SYRINGES as directed 100 prn ??? LANTUS 100 UNIT/ML SC SOLN as directed 100 0 ??? [DISCONTINUED] nitroglycerin (NITROSTAT) 0.4 MG sublingual tablet Take 1 tab under the tongue for chest pain, may repeat every 5 minutes x2. If pain not relieved then seek medical attention 25 tablet 3 ALLERGIES Allergies Allergen Reactions ??? Atorvastatin Other [...] Age of Onset ??? Hypertension Mother ??? DIABETES Maternal Grandmother ??? Hypertension Maternal Grandmother ??? Hypertension Maternal Grandfather SOCIAL HISTORY: Social History Social History ??? Marital status: Spouse name: N/A ??? Number of children: N/A ??? Years of education: N/A Social History Main Topics ??? Smoking status: Never Smoker ??? Smokeless tobacco: Not on file ??? Alcohol use 0.0 oz/week 0 Standard drinks or equivalent per week Comment: beer and wine, every couple days ??? Drug use: No ??? Sexual activity: Not on file Other Topics Concern ??? Caffeine Concern No 2 cups daily ??? Sleep Concern No ??? Weight Concern No ??? Special Diet Yes counts carbs, diabetic diet ??? Exercise Yes not much Social History Narrative Review of Systems: Skin: Negative Eyes: Positive for glasses ENT: Negative Respiratory: Negative Cardiovascular: Negative Gastroenterology: Negative Genitourinary: Negative Musculoskeletal: Positive for arthritis Neurologic: Positive for numbness or tingling of hands;numbness or tingling of feet Psychiatric: Negative Heme/Lymph/Imm: not assessed Endocrine: Positive for diabetes Physical Exam: Vitals: BP 114/62 Pulse 64 Ht 1.803 m (5' 11) Wt 101.6 kg (224 lb) BMI 31.24 kg/m2 Constitutional: cooperative, alert and oriented, well developed, well nourished, in no acute distress Skin: warm and dry to the touch, no apparent skin lesions or masses noted Head: normocephalic, no masses or lesions Eyes: pupils equal and round;sclera white;EOMS intact ENT: no pallor or cyanosis Neck: carotid pulses are full and equal bilaterally;JVP normal Chest: clear to auscultation;normal respiratory excursion Cardiac: regular rhythm, normal S1/S2, no S3 or S4, apical impulse not displaced, no murmurs, gallops or rubs Abdomen: abdomen soft;BS normoactive;non-tender;no bruits Vascular: pulses full and equal venous stasis changes bilaterally right femoral bruit (-) Extremities and Back: no deformities, clubbing, cyanosis, erythema observed;no edema stasis pigmentation Neurological: affect appropriate, oriented to time, person and place;no gross motor deficits CC Anatoliy Jackson MD [facility] [address] [facility] [address] documented in this encounter Plan of Treatment Upcoming Encounters Date Type Specialty Care Team Description 05/15/2022 Hospital Encounter Surgery Signh Torres MD [facility] [address] [place] [address] (Wo rk) 05/15/2022 Surgery Surgery Neo Torres MD BLEPHAROPLASTY BILATERAL [place] [facility] UPP[facility] L [facility]S, INTERNAL & [facility] PTOSIS REPAIR BILATERAL [address] [place] [address] (Wo rk) 06/25/2022 Ancillary Procedure Cardiology Kirk Silver MD [address] [place] [id number] (Wo rk) Scheduled Procedures Name Priority Associated Diagnoses Date/Time REPAIR, PTOSIS, BILATERAL, Dermatochalas is 05/15/2022 7:30 AM CDT WITH BILATERAL BLEPHAROPLASTY 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 REPAIR, ECTROPION, EYE, Dermatochalasis 05/15/2022 7:30 AM CDT BILATERAL 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 Scheduled Referrals Name Type Priority Associated Diagnoses Order S chedule Follow-Up with Referral Routine Coronary artery Expected: 12/03/2017 Poultry Inseminator disease involving (Approxima te), [place] coronary artery Expir es: 04/17/2018 of [place] heart without angina pectoris documented as of this encounter Results (ABNORMAL) Basic metabolic panel (11/30/2017 9:09 AM T) athologist Signature Sodium 139 133 - 144 11/30/2017 [place] mmol/L 9:46 AM [facility] Potassium 4.6 3.4 - 5.3 11/30/2017 [place] mmol/L 9:46 AM [facility] Chloride 106 94 - 109 11/30/2017 [place] mmol/L 9:46 AM [facility] Carbon Dioxide 25 20 - 32 11/30/2017 [place] mmol/L 9:46 AM [facility] Anion Gap 8 3 - 14 11/30/2017 [place] mmol/L 9:46 AM [facility] Glucose 319 (H) 70 - 99 11/30/2017 [place] mg/dL 9:46 AM [facility] Comment: Fasting specimen Urea Nitrogen 38 (H) 7 - 30 mg/dL 11/30/2017 9:46 AM [facility] Creatinine 1.28 (H) 0.66 - 1.25 mg/dL 11/30/2017 9:46 AM [facility] GFR Estimate 56 (L) >60 mL/min/1.7m2 11/30/2017 9:46 AM [facility] Comment: Non GFR Calc GFR Estimate If 68 >60 mL/min/1.7m2 11/30/2017 9:46 A M [facility] Comment: GFR Calc Calcium 8.6 8.5 - 10.1 mg/dL 11/30/2017 9:46 AM [facility] Specimen Anatomical Collection Method Collection Time Receive d Time (Source) Location / / Volume Laterality Blood specimen 11/30/2017 9:09 AM 018 9:10 (specimen) CDT AM [facility] Peter Aguiar MD LAB - BLOOD ORDERABLES Performing Organization Address City/State/ZIP Code Phon e Number [employer] [facility] [employer] [address] [place], [place] [address] [facility] [address] [place], [place] [address], [facility] [phone] ALT (11/30/2017 9:09 AM CDT) athologist Signature ALT 28 0 - 70 U/L 11/30/2017 [facility] 9:[address] [facility] Specimen Anatomical Collection Method Collection Time Receive d Time (Source) Location / / Volume Laterality Blood specimen 11/30/2017 9:09 AM 018 9:10 (specimen) CDT AM CDT Peter Aguiar MD LAB - BLOOD ORDERABLES Performing Organization Address City/[facility]/ZIP Code Phon e Number [employer] [address] [place] [address] [facility] [address] [place] [address], [facility] [phone] (ABNORMAL) Lipid Profile (11/30/2017 9:09 AM CDT) athologist Signature Cholesterol 98 <200 mg/dL 11/30/2017 [place] 9:46 AM [facility] Triglycerides 213 (H) <150 mg/dL 11/30/2017 [place] 9:46 AM [facility] Comment: Borderline high: ??150-199 mg/dl High: ? 200-499 mg/dl Very high: ? >499 mg/dl Fasting specimen HDL Cholesterol 31 (L) >39 mg/dL 11/30/2017 9:46 AM [facility] LDL Cholesterol 24 <100 mg/dL 11/30/2017 9:46 AM [facility] Comment: Desirable: <100 mg/dl Non HDL Cholesterol 67 <130 mg/dL 11/30/2017 9:46 AM [facility] Specimen Anatomical Collection Method Collection Time Receive d Time (Source) Location / / Volume Laterality Blood specimen 11/30/2017 9:09 AM 018 9:10 (specimen) CDT AM CDT Peter Aguiar MD LAB - BLOOD ORDERABLES Performing Organization Address City/State/ZIP Code Phon e Number [facility] [employer] [address] [place], [place] [address] [facility] [address] [place], [place] [address] [facility] [phone] documented in this encounter Visit Diagnoses Diagnosis Coronary artery disease involving [place] coronary artery of [place] heart without angina pectoris - Primary Hyperlipidemia LDL goal <70 Other and unspecified hyperlipidemia Essential hypertension with goal blood p ressure less than 130/80 S/P coronary artery stent placement 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
--- OUTSIDE RECORDS SUMMARY | 2022-05-02 12:37 | XMS_ITS | Encounter Summary ---
:1950 Author Organization [place] Address [address] [facility] [place] [address] Care Team Providers Name Role Phone Anatoliy Jackson MD Primary Care Provider Heath More MD Unavailable Peter Gipson MD Unavailable Encounter Details Date Type Department Care Team Description 04/11/2016 [facility] Heart Abno rmal renal function Clinic [facility] or test [address] [facility] [address] [place] [phone] Social History Tobacco Use Types Packs/Day Years [...] [facility] [address] [facility] [address] [place] [address] (Wo rk) 05/15/2022 Surgery Surgery Neo Torres MD BLEPHAROPLASTY BILATERAL [place] [facility], INTERNAL & SURGE[facility] [place] PTOSIS REPAIR BILATERAL [address] [place] [id number] (Wo rk) 06/25/2022 Ancillary Procedure Cardiology Kirk Silver MD [address] [place] [address] (Wo rk) Scheduled Procedures Name Priority Associated [...] Associated Diagnosis Comme nts BASIC METABOLIC Routine 04/11/2016 10:53 AM Abnormal renal Res ults for this PANEL CDT function test procedure are in the results section. documented in this encounter Results (ABNORMAL) Basic metabolic panel (04/11/2016 10:53 AM CDT) Analysis Performed At Patho logist Time Signature Sodium 135 (L) 136 - 145 [facility] mmol/L [facility] Potassium 4.2 3.5 - 5.1 [facility] mmol/L [facility] Chloride 103 98 - 107 [facility] mmol/L [facility] Carbon Dioxide 27 23 - 29 [facility] mmol/L [facility] Anion Gap 9.2 6 - 17 [facility] mmol/L [facility] Glucose 343 (H) 70 - 105 [facility] mg/dL [facility] Urea Nitrogen 45 (H) 7 - 30 [facility] mg/dL [facility] Creatinine 1.56 (H) 0.70 - [facility] 1.30 mg/dL [facility] GFR Estimate 48 (L) >60 [facility] mL/min/1.7 [facility] m2 A GFR Estimate If 58 (L) >60 [facility] Black mL/min/1.7 [facility] m2 A Calcium 9.2 8.5 - 10.5 [facility] mg/dL [facility] Specimen Anatomical Collection Method Collection Time Receive d Time (Source) Location / / Volume Laterality Blood specimen 04/11/2016 10:53 6 (specimen) AM CDT 10:54 AM CDT Debra Rose Laz MEDICAL OFFICER PSYCHIATRY SENIOR QA AUTOMATION ENGINEER LAB - BLOOD ORDERABLES Performing Organization Address City/State/ZIP Code Phon e Number [facility] [address] 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 [address] [place] [phone] Peter Gipson PCP - Urology 04/02/15 MD Jordan [facility] [address] [place] [address] [address] [place] [address] documented as of this encounter
--- OUTSIDE RECORDS SUMMARY | 2022-05-02 12:37 | XMS_ITS | Encounter Summary ---
:1950 Author Organization [place] Address [address] [facility] [place] [address] Care Team Providers Name Role Phone Anatoliy Jackson MD Primary Care Provider Heath More MD Unavailable Peter Gipson MD Unavailable Reason for Visit Reason Comments *-*INCOMING RECORDS*-* [facility] Urology Encounter Details Date Type Department Care Team Description 07/14/2018 Documentation Only [facility] Arin Garcia, * -*INCOMING Heart Clinic Anu RN RECORDS*-* [address] [place], [place] [address] [facility] [address] [place] [address] Social History Tobacco Use Types [...] PM CDT documented as of this encounter Progress Notes Arin Garcia, RN - 07/14/2018 1:39 PM CST Records sent to scan. SIZE LOAD PILOT ESCORT documented in this encounter Plan of Treatment Upcoming Encounters Date Type Specialty Care Team Description 05/15/2022 Hospital Encounter Surgery Singh Torres MD [facility] [address] [place] [address] (Wo rk) 05/15/2022 Surgery Surgery Neo Torres MD BLEPHAROPLASTY BILATERAL [facility] [facility]PP[facility], INTERNAL & SURGEONS [place] PTOSIS REPAIR BILATERAL [address] [place] [phone] (Wo rk) 06/25/2022 Ancillary Procedure Cardiology Kirk Silver MD [address] [place] [address] (Wo rk) Scheduled Procedures Name Priority [...] on filedocumented in this encounter Care Teams Molder Fitting Relationship Specialty Start Date End Date Anatoliy Jackson MD PCP - General 05/14/12 Heath More PCP - Internal Medicine INTERNAL MEDICINE - 01/06/14 MD Andreas ENDOCRINOLOGY, [facility] [address] [place] [phone] Peter Gipson PCP - Urology 04/02/15 MD Jordan [facility] [address] [place] [id number] documented as of this encounter
--- OUTSIDE RECORDS SUMMARY | 2022-05-02 12:37 | XMS_ITS | Encounter Summary ---
:1950 Author Organization [place] Address [address] [facility] [place] [address] Care Team Providers Name Role Phone Anatoliy Jackson MD Primary Care Provider Heath More MD Unavailable Peter Gipson MD Unavailable Encounter Details Date Type Department Care Team Description 10/06/2019 Travel Social History Tobacco Use Types Packs/Day [...] [address] [place] [address] (Wo rk) 05/15/2022 Surgery Surgery Neo Torres MD BLEPHAROPLASTY BILATERAL [place] [facility]S, INTERNAL & SURGEONS PA PTOSIS REPAIR BILATERAL [address] [place] [phone] (Wo rk) 06/25/2022 Ancillary Procedure Cardiology Kirk Silver MD [address] [place] [id number] (Wo rk) Scheduled Procedures Name Priority Associated [...] on filedocumented in this encounter Care Teams Shell Machine Operator Relationship Specialty Start Date End Date Anatoliy Jackson MD PCP - General 05/14/12 Heath More PCP - Internal Medicine INTERNAL MEDICINE - 01/06/14 MD Andreas ENDOCRINOLOGY, [facility] [address] [place] [phone] Peter Gipson PCP - Urology 04/02/15 MD Jordan [facility] [address] [place] [phone] documented as of this encounter
--- OUTSIDE RECORDS SUMMARY | 2022-05-02 12:37 | XMS_ITS | Encounter Summary ---
:1950 Author Organization [place] Address [address] [facility] [place] [address] Care Team Providers Name Role Phone Anatoliy Jackson MD Primary Care Provider Heath More MD Unavailable Peter Gipson MD Unavailable Encounter Details Date Type Department Care Team Description 12/01/2018 Travel Social History Tobacco Use Types Packs/Day [...] [address] [place] [address] (Wo rk) 05/15/2022 Surgery Surgery Neo Torres MD BLEPHAROPLASTY BILATERAL [place] [facility] IDS, INTERNAL & SURGEONS PA PTOSIS REPAIR BILATERAL [address] [place] [phone] (Wo rk) 06/25/2022 Ancillary Procedure Cardiology Kirk Silver MD [address] [place] [id number] (Wo rk) Scheduled Procedures Name Priority Associated [...] on filedocumented in this encounter Care Teams Transportation Superintendent Relationship Specialty Start Date End Date Anatoliy Jackson MD PCP - General 05/14/12 Heath More PCP - Internal Medicine INTERNAL MEDICINE - 01/06/14 MD Andreas ENDOCRINOLOGY, [facility] [address] [place] [phone] Peter Gipson PCP - Urology 04/02/15 MD Jordan [facility] [address] [place] [phone] documented as of this encounter
--- OUTSIDE RECORDS SUMMARY | 2022-05-02 12:37 | XMS_ITS | Encounter Summary ---
:1950 Author Organization [place] Address [address] [facility] [place] [address] Care Team Providers Name Role Phone Anatoliy Jackson MD Primary Care Provider Heath More MD Unavailable Peter Gipson MD Unavailable Reason for Visit Reason Onset Date Comments Refill Request 01/25/2019 nitroglycerin Encounter Details Date Type Department Care Team Description 01/25/2019 Refill [facility] Heart Peter Aguiar Ref ill Request Clinic Brenda Olmstead MD (nitroglycerin) [address] [place] [address] [address] [place] [address] [place] [phone] (Wo rk) Social History Tobacco Use Types [...] 05/15/2022 Hospital Encounter Surgery Singh Torres MD [facility] [address] [place] [address] (Wo rk) 05/15/2022 Surgery Surgery Neo Torres MD BLEPHAROPLASTY BILATERAL [facility] PTOSIS REPAIR BILATERAL [address] [place] [phone] (Wo rk) 06/25/2022 Ancillary Procedure Cardiology Kirk Silver MD [address] [place] [id number] (Wo rk) Scheduled Procedures Name Priority Associated [...] Diagnosis Coronary artery disease involving [place] coronary artery of [place] heart without angina pectoris 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
--- OUTSIDE RECORDS SUMMARY | 2022-05-02 12:37 | XMS_ITS | Encounter Summary ---
:1950 Author Organization [place] Address [address] [facility] [place] [address] Care Team Providers Name Role Phone Anatoliy Jackson MD Primary Care Provider Heath More MD Unavailable Peter Gipson MD Unavailable Reason for Visit Reason Onset Date Comments Refill Request 09/21/201711/24 Encounter Details Date Type Department Care Team Description [facility] (11/24) [address] [place] [address] Social History Tobacco Use Types [...] 05/15/2022 Hospital Encounter Surgery Singh Torres MD [facility] [address] [place] [address] (Wo rk) 05/15/2022 Surgery Surgery eNo Torres MD BLEPHAROPLASTY BILATERAL [place] [facility] PTOSIS REPAIR BILATERAL [address] [place] [address] (Wo rk) 06/25/2022 Ancillary Procedure Cardiology Kirk Silver MD [address] [place] [phone] (Wo rk) Scheduled Procedures Name Priority Associated Diagnoses Date/Time REPAIR, PTOSIS, BILATERAL, Dermatochalas is 05/15/2022 7:30 AM CDT WITH BILATERAL BLEPHAROPLASTY 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 REPAIR, ECTROPION, EYE, Dermatochalasis 05/15/2022 7:30 AM CDT BILATERAL 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 documented as of this encounter Visit Diagnoses Diagnosis Coronary artery disease involving [place] coronary artery of [place] heart without angina pectoris Essential hypertension Unspecified essential hypertension 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
--- OUTSIDE RECORDS SUMMARY | 2022-05-02 12:37 | XMS_ITS | Encounter Summary ---
:1950 Author Organization [place] Address [address] [facility] [address] Care Team Providers Name Role Phone Anatoliy Jackson MD Primary Care Provider Heath More MD Unavailable Peter Gipson MD Unavailable Encounter Details Date Type Department Care Team Description 12/03/2016 [facility] Only [facility] nary artery disease Clinic [place] Arnoldo olivares involving [place] coronary [address] [facility] [place] of [place] heart [address] without angina pectoris [place] [phone] Social History Tobacco Use Types Packs/Day Years [...] [address] [place] [address] (Wo rk) 05/15/2022 Surgery Surgery Neo Torres MD BLEPHAROPLASTY BILATERAL [place] [facility] PTOSIS REPAIR BILATERAL [address] [place] [address] (Wo rk) 06/25/2022 Ancillary Procedure Cardiology Kirk Silver MD [address] [place] [phone] (Wo rk) Scheduled Procedures Name Priority Associated [...] Associated Diagnosis Comme nts LIPID PROFILE Routine 12/03/2016 9:50 AM Coronary artery Resul ts for this CDT disease involving procedure are in the [place] coronary results sect ion. artery of [place] heart without angina pectoris ALT Routine 12/03/2016 9:50 AM Coronary artery Result s for this CDT disease involving procedure are in the [place] coronary results sect ion. artery of [place] heart without angina pectoris documented in this encounter Results ALT (12/03/2016 9:50 AM CDT) P athologist Signature ALT 28 0 - 70 U/L [facility] Specimen Anatomical Collection Method Collection Time Receive d Time (Source) Location / / Volume Laterality Blood specimen 12/03/2016 9:50 AM 017 9:51 (specimen) CDT AM CDT Debra Nesbitt [employer]ARK[employer] SIGNALER CUSTOMER ACCOUNTS ADVISOR LAB - BLOOD ORDERABLES Performing Organization Address City/State/ZIP Code Phon e Number [facility] [address] [place] [address] [facility] [address] [place] [address], [place] [phone] (ABNORMAL) Lipid Profile (12/03/2016 9:50 AM CDT) P athologist Signature Cholesterol 156 <200 mg/dL [facility] Triglycerides 278 (H) <150 mg/dL [facility] Comment: Borderline high: ??150-199 mg/dl High: ? 200-499 mg/dl Very high: ? >499 mg/dl Fasting specimen HDL Cholesterol 38 (L) >39 mg/dL [facility] LDL Cholesterol Calculated 62 <100 mg/dL [facility] Comment: Desirable: <100 mg/dl Non HDL Cholesterol 118 <130 mg/dL [facility] Specimen Anatomical Collection Method Collection Time Receive d Time (Source) Location / / Volume Laterality Blood specimen 12/03/2016 9:50 AM 017 9:51 (specimen) CDT AM CDT Debra Nesbitt PARKING LOT SIGNALER CUSTOMER ACCOUNTS ADVISOR LAB - BLOOD ORDERABLES Performing Organization Address City/State/ZIP Code Phon e Number 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
--- OUTSIDE RECORDS SUMMARY | 2022-05-02 12:37 | XMS_ITS | Encounter Summary ---
:1950 Author Organization [place] Address [address] [facility] [place] [address] Care Team Providers Name Role Phone Anatoliy Jackson MD Primary Care Provider Heath More MD Unavailable Peter Gipson MD Unavailable Reason for Visit Reason Onset Date Comments Results 04/11/2016 BMP Encounter Details Date Type Department Care Team Description 04/11/2016 Telephone [facility] Carlos Xie, Results (BMP) Clinic Brenda KELLY [address] [facility] [address] [place] [address] Social History Tobacco Use Types [...] this encounter Miscellaneous Notes Telephone Encounter - Carlos Xie RN - 07/31/2016 9:27 AM VETERINARY TECHNICIAN Called to patient - Apr 23 has preop physicial and had BMP drawn. See results in EPIC from 04/27/2016. He states has been followed closely post op by his PMD. Requested [facility] PMD records. Christina Gonzalez RN RINARY TECHNICIAN Telephone Encounter - Carlos Xie RN - 04/16/2016 11:03 AM CDT Called to patient - left message to call back to scheduling to repeat labs. Order placed and mailed letter. Christina Gonzalez RN Telephone Encounter - Carlos Xie RN - 04/11/2016 2:28 PM CDT Called to patient w/ labs - left message to call back to review and set up labs in 2 weeks. Christina Gonzalez RN Telephone Encounter - Debra Nesbitt APRN CNP - 04/11/2016 12:29 PM CDT Let's recheck in a couple of weeks. Thanks. Telephone Encounter - Carlos Xie RN - 04/11/2016 11:54 AM CDT Images from the original note were not included. Forwarded BMP to SERAFIN for review \ documented in this encounter Plan of Treatment Upcoming Encounters Date Type Specialty Care Team Description 05/15/2022 Hospital Encounter Surgery Singh Torres MD [facility] [address] [place] [address] (Wo rk) 05/15/2022 Surgery Surgery Neo Torres MD BLEPHAROPLASTY BILATERAL [facility] PTOSIS REPAIR BILATERAL [address] [place] [phone] (Wo rk) 06/25/2022 Ancillary Procedure Cardiology Kirk Silver MD [address] [place] [address] (Wo rk) Scheduled Procedures Name Priority Associated Diagnoses Date/Time REPAIR, PTOSIS, BILATERAL, Dermatochalas is 05/15/2022 7:30 AM CDT WITH BILATERAL BLEPHAROPLASTY 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
--- OUTSIDE RECORDS SUMMARY | 2022-05-02 12:37 | XMS_ITS | Encounter Summary ---
:1950 Author Organization [place] Address [address] [facility] [place] [address] Care Team Providers Name Role Phone Anatoliy Jackson MD Primary Care Provider Heath More MD Unavailable Peter Gipson MD Unavailable Reason for Visit Reason Onset Date Comments Symptoms 03/26/2018 Encounter Details Date Type Department Care Team Description 03/26/2018 Telephone [facility] Starr Garcia RN [address] [phone] Social History Tobacco Use Types Packs/Day [...] Telephone Encounter - Arin Garcia RN - 03/29/2018 1:29 PM CDT Pt returned the call, communicated Dr. Aguiar's recommendation to stay very active this week and contact our office if he has further exertional symptoms to make an appointment before his trip. Patientverbalized understanding, no further questions at this time. Telephone Encounter - Arin Garcia RN - 03/29/2018 8:58 AM CDT Called pt to review Dr. Aguiar's recommendations, no answer. LVM requesting call back to Team 1. Telephone Encounter - Peter Aguiar MD - 03/26/2018 5:23 PM CDT Recommend he try staying very active for the next week, if no further sx, continue current tx. If exertional chest symptoms recur, needs to be seen prior to [place] trip Telephone Encounter - Arin Garcia RN - 03/26/2018 1:35 PM CDT Pt returned my call. Discussed pt's recent episode of chest pressure. Pt describes as pressure/tightness in the center of his chest, occurred while walking and was relieved within a few minutes of rest. Pt states on subsequent walks he has not experienced this same feeling. Pt denied recent fatigue orSOB that were his anginal symptoms prior to stent placement. Reviewed that pt does have nitroglycerin if needed and picked up a new bottle after his last clinic visit in November. Reviewed how to use nitroglycerin and to seek emergency care if chest pain unrelieved by nitroglycerin. Pt also noted his BP was elevated at the dentist a couple weeks ago, states was 140 systolic. Pt also reports BP elevated 154/78 at an urgent care visit for hand laceration on 03/18/18. However, at visit yesterday and when checked at drug store BP was normal. Discussed upcoming trip. Pt states he is leaving for [place] on 04/06/18 and will be gone for 3 weeks. Pt states he will be traveling all over the [facility] to both remote and populated areas and doing some hiking. Advised will update Dr. Aguiar with this information and will call back to pt with recommendations. Pt verbalized agreement with plan. Telephone Encounter - Arin Garcia RN - 03/26/2018 10:20 AM CDT Received VM from LETICIA Goncalves for Dr. Jackson at [facility] requesting call back to discuss symptoms pt reported at visit. Pt seen in clinic on 03/25/18, notes in Care Everywhere. Called back and spoke with Ivanna. Ivanna stated that Dr. Jackson wanted to update Dr. Aguiar that pt reported an isolated episode of chest pressure while walking approximately 3 weeks ago. EKG done at clinic was unchanged and pt reported that symptoms did not recur, and he has walked 2-3 miles since the episode. Per Ivanna, pt leaving for a trip to [place] in 11 days and will be gone for a few weeks. Pt hashistory of CAD and was last seen in clinic on 11/30/17. Last coronary angiogram done on 04/01/16. Advised will call pt for more information and update Dr. Aguiar. Called to pt, no answer. LVM requesting call back to Team 1. documented in this encounter Plan of Treatment Upcoming Encounters Date Type Specialty Care Team Description 05/15/2022 Hospital Encounter Surgery Singh Torres MD [facility] [address] [place] [phone] (Wo rk) 05/15/2022 Surgery Surgery Neo Torres MD BLEPHAROPLASTY BILATERAL [place] [facility] PTOSIS REPAIR BILATERAL [address] [place] [phone] (Wo rk) 06/25/2022 Ancillary Procedure Cardiology Kirk Silver MD [address] [place] [address] (Wo rk) Scheduled Procedures Name Priority Associated [...] on filedocumented in this encounter Care Teams Chief Talent Officer Relationship Specialty Start Date End Date Anatoliy Jackson MD PCP - General 05/14/12 Heath More PCP - Internal Medicine INTERNAL MEDICINE - 01/06/14 MD Andreas ENDOCRINOLOGY, ENDOCRINE [facility] [address] [place] [phone] Peter Gipson PCP - Urology 04/02/15 MD Jordan [facility] [address] [place] [address] documented as of this encounter
--- OUTSIDE RECORDS SUMMARY | 2022-05-02 12:37 | XMS_ITS | Encounter Summary ---
:1950 Author Organization [place] Address [address] [place] [address] Care Team Providers Name Role Phone Anatoliy Jackson MD Primary Care Provider Heath More MD Unavailable Peter Gipson MD Unavailable Reason for Visit Reason Onset Date Comments Previsit 11/26/2016 OV 12/03/[address]L snider Encounter Details Date Type Department Care Team Description 11/26/2016 PRE VISIT [facility] Heart RosangelattBrenda mcgrath revisit (OV 12/03/16 Clinic Anu Donnelly RN with ) [address] [place] [address] [address] [place] [address] Social History Tobacco Use Types [...] [address] [place] [address] (Wo rk) 05/15/2022 Surgery Surgery Neo Torres MD BLEPHAROPLASTY BILATERAL [place] [facility] PTOSIS REPAIR BILATERAL [address] [place] [phone] (Wo rk) 06/25/2022 Ancillary Procedure Cardiology Kirk Silver MD [address] [place] [phone] (Wo rk) Scheduled Procedures Name Priority Associated [...] on filedocumented in this encounter Care Teams Clam Treader Relationship Specialty Start Date End Date Anatoliy Jackson MD PCP - General 05/14/12 Heath More PCP - Internal Medicine INTERNAL MEDICINE - 01/06/14 MD Andreas ENDOCRINOLOGY, ENDOCRINE [facility] [address] [place] [phone] Peter Gipson PCP - Urology 04/02/15 MD Jordan [facility] [address] [place] [phone] documented as of this encounter
--- OUTSIDE RECORDS SUMMARY | 2022-05-02 12:37 | XMS_ITS | Encounter Summary ---
:1950 Author Organization [place] Address [address] [facility] [place] [address] Care Team Providers Name Role Phone Anatoliy Jackson MD Primary Care Provider Heath More MD Unavailable Peter Gipson MD Unavailable Reason for Referral - Closed Specialty Diagnoses / Procedures Referred By Contact Refer red To Contact Diagnoses Coronary artery disease involving [place] coronary artery of [place] heart without angina pectoris Hyperlipidemia LDL goal <70 S/P coronary artery stent placement Peter Aguiar MD [address] [place] [address] Referral ID Status Reason Start Date Expiration Date Visits Requ ested Visits Authorized [id number] Closed 11/30/2018 11/30/2019 1 1 Reason for Visit Reason Comments RECHECK CAD, HTN, hyperlipidemia, di abetes, CKD - Closed Specialty Diagnoses / Procedures Referred By Contact Refer red To Contact Diagnoses Coronary artery disease involving [place] coronary artery of [place] heart without angina pectoris Peter Aguiar MD [address] [place] [address] Referral ID Status Reason Start Date Expiration Date Visits Requ ested Visits Authorized [id number] Closed 12/03/2017 12/03/2018 1 1 Encounter Details Date Type Department Care Team Description 11/30/2017 Office Visit Peter Kaye erick ry disease involving tonkawa coronary artery of [place] heart without angina pectoris (Primary Dx); [facility] MD Ishan Hyperlipidemia LDL goal <70; [facility] willie [address] S/P coronary artery stent pl acement; [address] Type 2 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, with long-term current use of insulin (H); [address] [place] [address] Peripheral vascular disease (H); [place], [place] [phone] Claudication of both lower extremities (H) [id number] (Work) [phone] Social History Tobacco Use Types Packs/Day Years [...] Reading Time Taken Comments Blood Pressure 122/64 11/30/2017 10:01 AM CDT Pulse 50 11/30/2017 10:01 AM CDT Temperature - - Respiratory Rate - - Oxygen Saturation 95% 11/30/2017 10:01 AM CDT Inhaled Oxygen Concentration - - Weight 104.3 kg (230 lb) 11/30/2017 10:01 AM CDT Height 180.3 cm (5' 11) 11/30/2017 10:01 AM CDT Body Mass Index 32.08 11/30/2017 10:01 AM CDT documented in this encounter Progress Notes Peter Aguiar MD - 11/30/2017 10:00 AM CDT HPI and Plan: This 67-year-old gentleman is seen in follow-up of his coronary disease, angina pectoris, and?? complex circumflex stenting (April 09, 2015). He has comorbidities of significant diabetes, hypertension, dyslipidemia, chronic renal insufficiency stage III. ?? The last 6 months he has been clinically stable. it has been a long winter and in has been more sedentary. He has started to walk more recently and he is noticing some calf mild cramping after a while.This does limit his current activity. He is not having the unusual fatigue and shortness of breath that he had prior to coronary stenting in 2014. He is not having other chest discomfort, denies orthopnea, edema, PND . Denies palpitations dizziness or syncope. He denies orthostasis, palpitations, myalgias or muscle weakness. Denies focal neurologic symptoms. Does have significant lower extremity peripheral neuropathy related to his diabetes. Hemoglobin was low in 2016. I reviewed care everywhere and recently is up to 12.1. However hemoglobin A1c was 9.1% at the field health officer visit. Recent LDLs over the last 3 months been running 40-50. In reviewing his chart at one time LDLs were averaging around 130 but remotely been as high as 180. Thus LDLs of 50 are an excellent intensive lowering. ?? He had developed limiting and progressive [...] lesion.? Prior to prostate surgery in 2016 surgery a stress study was abnormal. He underwent repeat angiography a year after stenting. This showed that the proximal and mid circumflex stents were widely patent.The right PDA lesion was 50-60% did not appear significant. The OM2 bifurcation lesion stent was totally occluded with left to left collaterals. As noted above he's been without ischemic symptoms during his surgery and during his current activity on medical therapy. ? Exam-full exam below. Brief summary: Blood pressure well-controlled at 122/64. Pulse regular in the 50s. Lungs clear Cardiac-regular rhythm, no murmur or gallop. No JVD Abdomen-no bruits or masses, obese Extremities-diminished femoral pulses bilaterally without bruits. posterior tibial pulses 1+ at best. trace right lower extremity edema just above the sock line. Full exam noted below ? Impression/plan 1-angina pectoris.? With his current activity level he is not having significant angina. It appears he does have some limitations due to claudication, see below. The residual unrevascularized territories are very small first obtuse marginal which is too small to stent, and the occluded OM 2 which is modest sized. Would continue medical therapy as long the symptoms controlled .?? 2-coronary artery disease. Status post multiple circumflex stents, one of which was ostial. coronaryangiogram in 2016 performed 1 year post-circumflex stenting, showed widely patent ostial stent with no disease in the left main. Mid circumflex stent widely patent with large posterior lateral systems vessels supplied by this. Modest second marginal chronically occluded Normal ejection fraction no heart failure or arrhythmia symptoms. Blood pressure and lipids well controlled. Not smoking. Needs much more work on diabetes control.??Lipids well controlled.?? Exercise/activity not very adequate at this winter. We discussed an exercise program today.?? Overall risk factor intervention is going well.?He described pretty good Mediterranean diet. I did discuss additional benefits of weight loss. ?? 3-dyslipidemia, at intense goal and is tolerating statin. This will be continued. ?? 4-hypertension, very well controlled. Currently without orthostatic symptoms 5-intermittent claudication of the calves. A walking program and its importance was discussed with him today. This has been beneficial in the past. ? I recommended continuing his current regimen. as long as he remains stable I will have him back in ayear Orders Placed This Encounter Procedures ??? Follow-Up with Cardiac Advanced Practice Provider Orders Placed This Encounter Medications ??? Turmeric 500 MG CAPS ??? ROSUVASTATIN CALCIUM PO Sig: Take 40 mg by mouth ??? Insulin Lispro (HUMALOG SC) ??? nitroGLYcerin (NITROSTAT) 0.4 MG sublingual tablet Sig: Take 1 tab under the tongue for chest pain, may repeat every 5 minutes x2. If pain not relieved then seek medical attention Dispense: 25 tablet Refill: 3 Medications Discontinued During This Encounter Medication Reason ??? nitroglycerin (NITROSTAT) 0.4 MG sublingual tablet Reorder ??? simvastatin (ZOCOR) 40 MG tablet Alternate therapy Encounter Diagnoses Name Primary? Coronary artery disease involving [place] coronary artery of [place] heart without angina pectorisYes ? ? Hyperlipidemia LDL goal <70 ??? S/P coronary artery stent placement ??? Type 2 diabetes mellitus with other circulatory complication, with long-term current use of insulin (H) ??? Peripheral vascular disease (H) ??? Claudication of both lower extremities (H) CURRENT MEDICATIONS: Current Outpatient Prescriptions Medication Sig Dispense Refill ??? amLODIPine (NORVASC) 5 MG tablet Take 1 tablet (5 mg) by mouth daily 90 tablet 0 ??? aspirin 325 MG tablet Take 325 mg by mouth daily ??? carvedilol (COREG) 12.5 MG tablet Take 1 tablet (12.5 mg) by mouth 2 times daily (with meals) 180 tablet 0 ??? cloNIDine (CATAPRES) 0.1 MG tablet Take 0.1 mg by mouth 2 times daily ??? GABAPENTIN PO Take 300 mg by mouth as needed ??? Insulin Lispro (HUMALOG SC) ??? LANTUS 100 UNIT/ML SC SOLN as directed 100 0 ??? lisinopril-hydrochlorothiazide (PRINZIDE,ZESTORETIC) 20-12.5 MG per tablet Take 1 tablet by mouth daily ??? nitroGLYcerin (NITROSTAT) 0.4 MG sublingual tablet Take 1 tab under the tongue for chest pain, may repeat every 5 minutes x2. If pain not relieved then seek medical attention 25 tablet 3 ??? ONE TOUCH ULTRA TEST STRP as directed 100 prn ??? ROSUVASTATIN CALCIUM PO Take 40 mg by mouth ??? SYRINGE B-D MICRO FINE 1/2 CC SYRINGES as directed 100 prn ??? Turmeric 500 MG CAPS ??? finasteride (PROSCAR) 5 MG tablet Take 5 mg by mouth ??? INSULIN LISPRO (HUMAN) 100 UNIT/ML SC SOLN As directed (Patient not taking: No sig reported) Onemonth 0 ??? [DISCONTINUED] nitroglycerin (NITROSTAT) 0.4 MG [...] Never Smoker ??? Smokeless tobacco: Never Used ??? Alcohol use 0.0 oz/week 0 Standard drinks or equivalent per week Comment: beer and wine, every couple days ??? Drug use: No ??? Sexual activity: Not Asked Other Topics Concern ??? Caffeine Concern No 2 cups daily ??? Sleep Concern No ??? Weight Concern No ??? Special Diet Yes counts carbs, diabetic diet ??? Exercise Yes not much Social History Narrative Review of Systems: Skin: bump on left uppper arm, Eyes: Positive for glasses getting a little cloudy ENT: Negative Respiratory: Negative Cardiovascular: Negative Gastroenterology: Negative Genitourinary: Negative Musculoskeletal: Positive for joint pain hip and knees Neurologic: Positive for numbness or tingling of feet Neuropathy Psychiatric: Negative Heme/Lymph/Imm: Positive for easy bruising shins bruise easy Endocrine: Positive for diabetes Physical Exam: Vitals: BP 122/64 (BP Location: Right arm, Patient Position: Sitting, Cuff Size: Adult Large) Pulse 50 Ht 1.803 m (5' 11) Wt 104.3 kg (230 lb) SpO2 95% BMI 32.08 kg/m2 Constitutional: cooperative, alert and oriented, well developed, well nourished, in no acute distress Skin: warm and dry to the touch, no apparent skin lesions or masses noted Head: normocephalic, no masses or lesions Eyes: pupils equal and round;sclera white;EOMS intact Lymph: ENT: no pallor or cyanosis Neck: carotid pulses are full and equal bilaterally;JVP normal;no carotid bruit Respiratory: clear to auscultation;normal respiratory excursion Cardiac: regular rhythm, normal S1/S2, no S3 or S4, apical impulse not displaced, no murmurs, gallops or rubs venous stasis changes bilaterally right femoral artery;1+ 1+;right posterior tibial artery 1+;left femoral artery left posterior tibial artery;1+ right femoral bruit (-) left femoral bruit (-) GI: abdomen soft;BS normoactive;non-tender;no bruits Extremities and Muscular Skeletal: no deformities, clubbing, cyanosis, erythema observed stasis pigmentation RLE edema;trace Neurological: no gross motor deficits Psych: affect appropriate, oriented to time, person and place CC Peter Aguiar MD [address] [place] [address] documented in this encounter Plan of Treatment Upcoming Encounters Date Type Specialty Care Team Description 05/15/2022 Hospital Encounter Surgery Singh Torres MD [facility] [address] [place] [id number] (Wo rk) 05/15/2022 Surgery Surgery Noe Torres MD BLEPHAROPLASTY BILATERAL [facility] PTOSIS REPAIR BILATERAL [address] [place] [id number] (Wo rk) 06/25/2022 Ancillary Procedure Cardiology Kirk Silver MD [address] [place] [id number] (Wo rk) Scheduled Procedures Name Priority Associated [...] S chedule Follow-Up with Cardiac Referral Routine Coronary artery di sease Expected: 11/30/2018 Advanced Practice involving [place] (Appro ximate), Provider coronary artery of Expires: 12/01/2018 [place] heart without angina pectoris Hyperlipidemia LDL goal <70 S/P coronary artery stent placement documented as of this encounter Visit Diagnoses Diagnosis Coronary artery disease involving [place] coronary artery of [place] heart without angina pectoris - Primary Hyperlipidemia LDL goal <70 Other and unspecified hyperlipidemia S/P coronary artery stent placement Postsurgical percutaneous transluminal c oronary angioplasty status Type 2 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, with long-term current use of insulin (H) Peripheral vascular disease (H) Peripheral vascular disease, unspecified Claudication of both lower extremities ( H) 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
--- OUTSIDE RECORDS SUMMARY | 2022-05-02 12:37 | XMS_ITS | Encounter Summary ---
:1950 Author Organization [place] Address [address] [facility] [place] [address] Care Team Providers Name Role Phone Anatoliy Jackson MD Primary Care Provider Heath More MD Unavailable Peter Gipson MD Unavailable Reason for Visit Reason Onset Date Comments Refill Request 10/12/2017 11/30/17 Encounter Details Date Type Department Care Team Description [facility]11[facility]30[facility]17[facility] [place] [id number] [facility] [address] [place] [id number] Social History Tobacco Use Types Packs/Day [...] [address] [place] [address] (Wo rk) 05/15/2022 Surgery Surgery Neo Torres MD BLEPHAROPLASTY BILATERAL [facility] PTOSIS REPAIR BILATERAL [address] [place] [address] (Wo rk) 06/25/2022 Ancillary Procedure Cardiology Kirk Silver MD [address] [place] [id number] (Wo rk) Scheduled Procedures Name Priority Associated Diagnoses Date/Time REPAIR, PTOSIS, BILATERAL, Dermatochalas is 05/15/2022 7:30 AM CDT WITH BILATERAL BLEPHAROPLASTY 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 REPAIR, ECTROPION, EYE, Dermatochalasis 05/15/2022 7:30 AM CDT BILATERAL 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 documented as of this encounter Visit Diagnoses Diagnosis Coronary artery disease involving [place] coronary artery of [place] heart without angina pectoris 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
--- OUTSIDE RECORDS SUMMARY | 2022-05-02 12:37 | XMS_ITS | Encounter Summary ---
:1950 Author Organization [facility] Address [address] [place] [address] Care Team Providers Name Role Phone Anatoliy Jackson MD Primary Care Provider Heath More MD Unavailable Peter Gipson MD Unavailable Reason for Referral - Closed Specialty Diagnoses / Procedures Referred By Contact Refer red To Contact Diagnoses Coronary artery disease involving habematolel coronary artery of habematolel heart without angina pectoris Lolis Ellis APRN CNP [address] [place] [address] Referral ID Status Reason Start Date Expiration Date Visits Requ ested Visits Authorized [id number] Closed 10/08/2016 10/08/2017 1 1 Reason for Visit Reason Comments Heart Problem fu angio Encounter Details Date Type Department Care Team Description 04/11[facility]2016 [facility] Anu Rose APRN Coronary artery disease invo lving habematolel coronary artery of habematolel heart without angina pectoris; [address] CNP Essential hypertension with goal blood p ressure less than 130/80; [address] Hyperlipidemia LDL goal <70 [place] [id number] [address] [place] [address] Social History Tobacco Use Types Packs/Day Years [...] Sign Reading Time Taken Comments Blood Pressure 100/48 04/11/2016 10:14 AM CDT Pulse 60 04/11/2016 10:14 AM CDT Temperature - - Respiratory Rate - - Oxygen Saturation - - Inhaled Oxygen Concentration - - Weight 100.7 kg (222 lb) 04/11/2016 10:14 AM CDT Height 180.3 cm (5' 11) 04/11/2016 10:14 AM CDT Body Mass Index 30.96 04/11/2016 10:14 AM CDT documented in this encounter Progress Lolis Lucero, CALLIE RENTAL COORDINATOR - 04/11/2016 10:58 AM CDT CHIEF COMPLAINT: Followup angiogram. HISTORY OF PRESENT ILLNESS: Mr. Anderson is a pleasant 65-year-old gentleman who follows with Dr. Aguiar. He has a history of coronary disease. He underwent complex circumflex stenting on 04/09/2015. Dinorah has a history of diabetes, hypertension and dyslipidemia. He has mild chronic renal insufficiency. Earlier this year, his PSA had risen and he underwent biopsy. He tolerated being off Plavix for a week without any problems at that time. He was not found to have any malignancy; however, he did develop urinary retention following that and has required self-catheterization since then. Dr. Aguiar saw him at the beginning of March. At that time there was a discussion about potentially undergoing a TURP versus a subtotal prostatectomy. In preparation for this, Dr. Aguiar opted to send the patient for a nuclear stress test. Results showed a small area of ischemia in the inferolateral apex and inferolateral apical segment. There was a small to moderate area of ischemia in the lateral mid ventricle to the base in association with a small inferior/inferolateral basal infarct. Resting EKG showed nonspecific ST abnormalities. His stress EKG showed very prominent ST depression measuring up to 4 mm in thelateral and inferior leads with prominent ST elevation in AVR as well as V1. Dr. Aguiar reviewed the results and opted to send the patient for an angiogram, which was completed on 04/01. Results showed mild disease in the left main of less than 10%. His left anterior descendingartery had mild 30% disease. There were widely patent stents in the ostial circumflex, OM and distalcircumflex. The right coronary artery gave rise to PL branches and supplied a PDA. There was a 50%-60% stenosis in the proximal right PDA unchanged from his last angiogram. No intervention was required. Mr. Anderson returns to the clinic today in followup. He tells me he is doing well. He has no chest pain, shortness of breath, lightheadedness, dizziness, palpitations, orthopnea or paroxysmal nocturnaldyspnea. PHYSICAL EXAMINATION: GENERAL: On exam, this is a well-developed, well-nourished male, who appears his stated age. He is cooperative and appropriate. VITAL SIGNS: Stable. NEUROLOGIC: He is intact. HEENT: Normocephalic, atraumatic without tenderness or involuntary movements. Face appears symmetric. Visual diana are full. EOMs intact. Conjunctivae clear. Oral mucosa is pink and moist. NECK: Supple, full range of motion, trachea appears midline, left carotid bruit. CARDIOVASCULAR: S1, S2, regular rate and rhythm, no murmur, rub or gallop. LUNGS: Chest expansion appears symmetric. Breath sounds are clear. ABDOMEN: Soft, bowel sounds present. EXTREMITIES: Warm and dry without edema, cyanosis or clubbing. He has venous stasis pigmentation changes. The right groin is without hematoma or bruit. IMPRESSION AND PLAN: 1. Coronary artery disease. Mr. Anderson had a recent false positive stress test with an angiogram identifying patent stents and no more than 50% blockage in the right system. He is appropriately on aspirin, beta hong and statin therapy. Last LDL was in November of this year at which time it was 49. Per Dr. Aguiar's last note, he would like the patient stay on Plavix for 6-9 more months. He is okay, however, to discontinue it prior to his prostate surgery and then resume again afterward. 2. Chronic renal insufficiency. I did ask him to stop in the lab today on his way out to recheck a creatinine as we have not done this since his angiogram. 3. Hypertension. Blood pressure adequately controlled. 4. Dyslipidemia. He is on simvastatin 40 mg. We will recheck his cholesterol again in about six months when he sees Dr. Aguiar again. He is aware if there are questions or concerns prior to then, he can contact the office. Thank you for allowing me to participate in the care of this patient. LOLIS ELLIS APRN CNP MT: al Name: NIKITA ANDERSON MRN: [id number] Account: [id number] : 1950 Service Date: 04/11/2016 Document: [id number] Lolis Ellis APRN CNP - 04/11/2016 10:52 AM CDT HPI and Plan: See dictation 10:53 AM [id number] Orders Placed This Encounter Procedures ??? Basic metabolic panel ??? Lipid Profile ??? ALT ??? 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 Medications Discontinued During This Encounter Medication Reason ??? tamsulosin (FLOMAX) 0.4 MG 24 hr capsule Stopped by Patient Encounter Diagnoses Name Primary? Abnormal renal function test Yes ??? Coronary artery disease involving habematolel coronary artery of habematolel heart without angina pectoris CURRENT MEDICATIONS: Current Outpatient Prescriptions Medication Sig Dispense Refill ??? clopidogrel (PLAVIX) 75 MG tablet Take 1 tablet (75 mg) by mouth daily 90 tablet 2 ??? nitroglycerin (NITROSTAT) 0.4 MG SL tablet Take 1 tab under the tongue for chest pain, may repeat every 5 minutes x2. If pain not relieved then seek medical attention 25 tablet 3 ??? finasteride (PROSCAR) 5 MG tablet Take 5 mg by mouth ??? amLODIPine (NORVASC) 5 MG tablet Take 1 tablet (5 mg) by mouth daily 90 tablet 3 ??? carvedilol (COREG) 12.5 MG tablet Take 1 tablet (12.5 mg) by mouth 2 times daily (with meals) 180 tablet 3 ??? isosorbide mononitrate (IMDUR) 30 MG 24 hr tablet Take 1 tablet (30 mg) by mouth daily 90 tablet3 ??? simvastatin (ZOCOR) 40 MG tablet Take [...] UNIT/ML SC SOLN as directed 100 0 ALLERGIES Allergies Allergen Reactions ??? Atorvastatin Other (See Comments) Congestion ??? Epinephrine Palpitations PAST MEDICAL HISTORY: Past Medical History Diagnosis Date ??? Polyneuropathy in diabetes(357.2) (H) Abstracted 01/20/02 ??? Type II or unspecified type diabetes mellitus with neurological manifestations, not stated as uncontrolled(250.60) Abstracted 01/20/02 ??? Pure hypercholesterolemia Abstracted 01/20/02 ??? Unspecified essential hypertension ??? Cancer (H) 1980 Melanoma ??? Coronary artery disease 07/2013, 12/2014 moderate to severe 3v CAD 12/2014 ??? Angina pectoris (H) ??? PVD (peripheral vascular disease) (H) PAST SURGICAL HISTORY: Past Surgical History Procedure Laterality Date ? ? Head & neck surgery wisdom teeth extractions, subacious cyst removed ??? Coronary angiography adult order 07/2013 RCA 40-50% stenosis, prox PDA 60%, left circ 50-60%. Mod. nonobstructive CAD ??? Heart cath coronary angiogram w/lv gram 01/03/15 70% prox PDA - FFR 0.77, 70% OM2 - FFR 0.79, 70-80% OM3 -FFR 0.77, 70-80% OM4, ??? Angiogram 04/09/2015 Successful PCI to mid-LCX with JAVIER, Successful PCI to OM2 with JAVIER. Successful PCI to Ostial LCX with JAVIER ??? Hc left heart catheterization 04/01/2016 FAMILY HISTORY: Family History Problem Relation Age of Onset ??? DIABETES Maternal Grandmother ??? Hypertension Maternal Grandmother ??? Hypertension Mother ??? Hypertension Maternal Grandfather SOCIAL HISTORY: Social History Social History ??? Marital Status: Spouse Name: N/A ??? Number of Children: N/A ??? Years of Education: N/A Social History Main Topics ??? Smoking status: Never Smoker ??? Smokeless tobacco: None ??? Alcohol Use: 0.0 oz/week 0 Standard drinks or equivalent per week Comment: beer and wine, every couple days ??? Drug Use: No ??? Sexual Activity: Not Asked Other Topics Concern ??? Caffeine Concern No 2 cups daily ??? Sleep Concern No ??? Weight Concern No ??? Special Diet Yes counts carbs, diabetic diet ??? Exercise Yes not much Social History Narrative Review of Systems: Skin: Negative Eyes: Positive for glasses ENT: not assessed Respiratory: Negative Cardiovascular: Negative Gastroenterology: Negative Genitourinary: not assessed Musculoskeletal: Positive for arthritis Neurologic: Positive for numbness or tingling of hands;numbness or tingling of feet Psychiatric: Negative Heme/Lymph/Imm: not assessed Endocrine: Positive for diabetes Physical Exam: Vitals: BP 100/48 mmHg Pulse 60 Ht 1.803 m (5' 11) Wt 100.699 kg (222 lb) BMI 30.98 kg/m2 Constitutional: cooperative, alert and oriented, well developed, well nourished, in no acute distress Skin: warm and dry to the touch, no apparent skin lesions or masses noted Head: normocephalic, no masses or lesions Eyes: pupils equal and round, conjunctivae and lids unremarkable, sclera white, no xanthalasma, EOMSintact, no nystagmus ENT: no pallor or cyanosis, dentition good Neck: carotid pulses are full and equal bilaterally;JVP normal left carotid bruit Chest: clear to auscultation Cardiac: regular rhythm, normal S1/S2, no S3 or S4, apical impulse not displaced, no murmurs, gallops or rubs Abdomen: abdomen soft;BS normoactive Vascular: pulses below the femoral arteries are diminished;venous stasis changes bilaterally right femoral bruit (-) Extremities and Back: no deformities, clubbing, cyanosis, erythema observed;no edema stasis pigmentation Neurological: affect appropriate, oriented to time, person and place;no gross motor deficits CC No referring provider defined for this encounter. documented in this encounter Plan of Treatment Upcoming Encounters Date Type Specialty Care Team Description 05/15/2022 Hospital Encounter Surgery Singh Torres MD [facility] [address] [place] [address] (Wo rk) 05/15/2022 Surgery Surgery Neo Torres MD BLEPHAROPLASTY BILATERAL [facility] PTOSIS REPAIR BILATERAL [address] [place] [address] (Wo rk) 06/25/2022 Ancillary Procedure Cardiology Kirk Silver MD [address] [place] [id number] (Wo rk) Scheduled Procedures Name Priority Associated [...] Follow-Up with Referral Routine Coronary artery Expected: 10/08/2016 Nursery School Teacher disease involving (Approxima te), habematolel coronary artery Expir es: 04/11/2017 of habematolel heart without angina pectoris documented as of this encounter Results ALT (12/03/2016 9:50 AM CDT) athologist Signature ALT 28 0 - 70 U/L [facility] Specimen Anatomical Collection Method Collection Time Receive d Time (Source) Location / / Volume Laterality Blood specimen 12/03/2016 9:50 AM 017 9:51 (specimen) CDT AM CDT Lolis Ellis APRN, CNP LAB - BLOOD ORDERABLES Performing Organization Address City/State/ZIP Code Phon e Number M [facility] [address] [place] [address] [facility] [address] [place] [address], U [phone] (ABNORMAL) Lipid Profile (12/03/2016 9:50 AM CDT) athologist Signature Cholesterol 156 <200 mg/dL [facility] Triglycerides 278 (H) <150 mg/dL [facility] Comment: Borderline high: ??150-199 mg/dl High: ? 200-499 mg/dl Very high: ? >499 mg/dl Fasting specimen HDL Cholesterol 38 (L) >39 mg/dL [facility] LDL Cholesterol Calculated 62 <100 mg/dL [facility] Comment: Desirable: <100 mg/dl Non HDL Cholesterol 118 <130 mg/dL [facility] Specimen Anatomical Collection Method Collection Time Receive d Time (Source) Location / / Volume Laterality Blood specimen 12/03/2016 9:50 AM 017 9:51 (specimen) CDT AM CDT Lolis Ellis APRN, CNP LAB - BLOOD ORDERABLES Performing Organization Address City/State/ZIP Code Phon e Number M [facility] [address] [place] [address] [phone] [facility] [address] [place] [address], U [phone] (ABNORMAL) Basic metabolic panel (04/11/2016 10:53 AM CDT) Analysis Performed At Patho logist Time Signature Sodium 135 (L) 136 - 145 [facility] mmol/L [facility] Potassium 4.2 3.5 - 5.1 [facility] mmol/L [facility] Chloride 103 98 - 107 [facility] mmol/L [facility] Carbon Dioxide 27 23 - 29 [facility] mmol/L [facility] Anion Gap 9.2 6 - 17 [facility] mmol/L [facility] Glucose 343 (H) 70 - 105 [facility] mg/dL [facility] Urea Nitrogen 45 (H) 7 - 30 [facility] mg/dL [facility] Creatinine 1.56 (H) 0.70 - [facility] 1.30 mg/dL [facility] GFR Estimate 48 (L) >60 [facility] mL/min/1.7 [facility] m2 A GFR Estimate If 58 (L) >60 [facility] [place] mL/min/1.7 [facility] m2 A Calcium 9.2 8.5 - 10.5 [facility] mg/dL [facility] Specimen Anatomical Collection Method Collection Time Receive d Time (Source) Location / / Volume Laterality Blood specimen 04/11/2016 10:53 6 (specimen) AM CDT 10:54 AM CDT Lolis Ellis APRN RENTAL COORDINATOR LAB - BLOOD ORDERABLES Performing Organization Address City/State/ZIP Code Phon e Number [facility] [address] [place], [place] [address] [address] documented in this encounter Visit Diagnoses Diagnosis Abnormal renal function test - Primary Nonspecific abnormal results of kidney f unction study Coronary artery disease involving habematolel coronary artery of habematolel heart without angina pectoris Essential hypertension with goal blood p ressure less than 130/80 Hyperlipidemia LDL goal <70 Other and unspecified hyperlipidemia 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
--- OUTSIDE RECORDS SUMMARY | 2022-05-02 12:37 | XMS_ITS | Encounter Summary ---
:1950 Author Organization [facility] Address [address] [facility] [place] [address] Care Team Providers Name Role Phone Anatoliy Jackson MD Primary Care Provider Heath More MD Unavailable Peter Gipson MD Unavailable Reason for Referral Diagnostic Imaging MRI (Routine) - Closed Specialty Diagnoses / Procedures Referred By Contact Refer red To Contact Radiology. Diagnoses DDD (degenerative disc disease), lumbar Lumbar radicular pain Peter Mcmullen Rh Mri Rscc Procedures MRI Lumbar spine w/o contrast [address] [facility] [address] [place], [place] [id number] [address] [place] [address] 4 [place] [address] Phone: Fax: Referral ID Status Reason Start Date Expiration Date Visits Requ ested Visits Authorized [id number] Closed 10/06/2019 10/05/2020 1 1 Y RIG OPERATOR Diagnostic Imaging XR (Routine) - Closed Specialty Diagnoses / Procedures Referred By Contact Refer red To Contact Diagnoses Bilateral hip pain Peter Mcmullen MD Procedures XR Hip Bilateral G/E [address] [place], [place] [address] Referral ID Status Reason Start Date Expiration Date Visits Requ ested Visits Authorized [id number] Closed 10/06/2019 10/05/2020 1 1 Y RIG OPERATOR Diagnostic Imaging XR (Routine) - Closed Specialty Diagnoses / Procedures Referred By Contact Refer red To Contact Diagnoses DDD (degenerative disc disease), lumbar Lumbar radicular pain Peter Mcmullen MD Procedures XR Lumbar Spine 2-3 Views* [address] [place], [place] [address] Referral ID Status Reason Start Date Expiration Date Visits Requ ested Visits Authorized [id number] Closed 10/06/2019 10/05/2020 1 1 Y RIG OPERATOR Reason for Visit Reason Comments Pain Encounter Details Date Type Department Care Team Description 10/06/2019 [facility] Visit [facility] Peter Mcmullen DDD (d egenerative disc disease), lumbar (Primary Dx); Orthopaedic Walk In MD Mahendra Lumbar radicular pain; Clinic [address] Bilateral hip pain [address] [facility] [address] [place] [phone] Social History Tobacco Use Types Packs/Day [...] - - Weight 102.1 kg (225 lb) 10/06/2019 3:41 PM SPRAY RIG OPERATOR Height 180.3 cm (5' 11) 10/06/2019 3:41 PM SPRAY RIG OPERATOR Body Mass Index 31.38 10/06/2019 3:41 PM SPRAY RIG OPERATOR documented in this encounter Progress Notes Yuly Mackey ATC - 10/06/2019 3:40 PM CST SPORTS & ORTHOPEDIC WALK-IN VISIT 10/06/2019 Primary Care Physician: Dr. Jackson He has neuropathy that could be coming from spine. He has numbness and tingling in both feet. He has3 stints. Reason for visit: ?? What part of your body is injured / painful? bilateral low back ?? What caused the injury /pain? Unsure ?? How long ago did your injury occur or pain begin? problem is longstanding ?? What are your most bothersome symptoms? Pain, Numbness and Tingling ?? How would you characterize your symptom? numb ?? What makes your symptoms better? Nothing ?? What makes your symptoms worse? Movement ?? Have you been previously seen for this problem? No Medical History: ?? Any recent changes to your medical history? No ?? Any new medication prescribed since last visit? No ?? Have you had surgery on this body part before? No Social History: ?? Occupation: Retired ?? Handedness: Right ?? Exercise: Review of Systems: ?? Do you have fever, chills, weight loss? No ?? Do you have any vision problems? No ?? Do you have any chest pain or edema? No ?? Do you have any shortness of breath or wheezing? No ?? Do you have stomach problems? Yes, GI ?? Do you have any numbness or focal weakness? Yes, feet ?? Do you have diabetes? Yes ?? Do you have problems with bleeding or clotting? No ?? Do you have an rashes or other skin lesions? No Y RIG OPERATOR Peter Mcmullen MD - 10/06/2019 3:40 PM CST HISTORY OF PRESENT ILLNESS Mr. Anderson is a pleasant 68 year old year old male who presents to clinic today with chronic bilateral feet numbness, low back pain on/off and some bilateral on/off hip pain Nikita explains that he has had 'neuropathy' in both feet for many years, takes gabapentin, and feels like his balance is off Has pain in hips from time to time with excessive walkiing Location: low back and hips Quality: achy pain Severity: 6/10 at worst Duration: see above Timing: occurs intermittently Context: occurs while walking a lot Modifying factors: resting and non-use makes it better, movement and use makes it worse Associated signs & symptoms: numbness in feet Additional history: as documented MEDICAL HISTORY Patient Active Problem List Diagnosis ??? Type 2 diabetes mellitus with circulatory disorder (H) ? ? Hyperlipidemia LDL goal <70 ??? Essential hypertension ??? Peripheral vascular disease (H) ??? Coronary artery disease involving [place] coronary artery of [place] heart without angina pectoris ??? Angina pectoris [...] by mouth daily 90 tablet 3 ??? aspirin 325 MG tablet Take 81 [...] SOLN as directed 100 0 ??? lisinopril-hydrochlorothiazide (PRINZIDE/ZESTORETIC) 20-12.5 MG tablet Take 1 tablet by [...] Bedtime ??? Turmeric 500 MG CAPS ??? INSULIN LISPRO (HUMAN) 100 UNIT/ML SC SOLN As directed (Patient not taking: No sig reported) Onemonth 0 Allergies Allergen Reactions ??? Atorvastatin Other (See [...] resource strain: Not on file ??? Food insecurity: Worry: Not on file Inability: Not on file ??? Transportation needs: Medical: Not on file Non-medical: Not on file Tobacco Use ??? Smoking status: Never Smoker ??? Smokeless tobacco: Never Used Substance and Sexual Activity ??? Alcohol use: Yes Alcohol/week: 0.0 standard drinks Comment: beer and wine, every couple days ??? Drug use: No ??? Sexual activity: Not on file Lifestyle ??? Physical activity: Days per week: Not on file Minutes per session: Not on file ??? Stress: Not on file Relationships ??? Social connections: Talks on phone: Not on file Gets together: Not on file Attends hoahaoism service: Not on file Active member of club or organization: Not on file Attends meetings of clubs or organizations: Not on file Relationship status: Not on file ??? Intimate partner violence: Fear of current or ex partner: Not on file Emotionally abused: Not on file Physically abused: Not on file Forced sexual activity: Not on file Other Topics Concern ??? Parent/sibling w/ CABG, SD or angioplasty before 65F 55M? Not Asked [...] on file Additional medical/Social/Surgical histories reviewed in [facility] and updated as appropriate. REVIEW OF SYSTEMS (10/06/2019) 10 point ROS of systems including Constitutional, Eyes, Respiratory, Cardiovascular, Gastroenterology, Genitourinary, Integumentary, Musculoskeletal, Psychiatric, Allergic/Immunologic were all negativeexcept for pertinent positives noted in my HPI. PHYSICAL EXAM Vitals: 10/06/19 1541 Weight: 102.1 kg (225 lb) Height: 1.803 m (5' 11) Vital Signs: Ht 1.803 m (5' 11) Wt 102.1 kg (225 lb) BMI 31.38 kg/m?? Patient declined being weighed. Body mass index is 31.38 kg/m??. General - normal appearance, in no obvious distress CV - normal peripheral perfusion Pulm - normal respiratory pattern, non-labored Musculoskeletal - lumbar spine - stance: normal gait without limp, no obvious leg length discrepancy, normal heel and toe walk - inspection: normal bone and joint alignment, no obvious scoliosis - palpation: no paravertebral or bony tenderness - ROM: flexion exacerbates some pain, normal extension, sidebending, rotation - strength: lower extremities 5/5 in all planes - special tests: (-) straight leg raise (-) slump test Neuro - patellar and Achilles DTRs 2+ bilaterally, bilateral lower extremity sensory deficit throughout [id number], grossly normal coordination, normal muscle tone Skin - no ecchymosis, erythema, warmth, or induration, no obvious rash Psych - interactive, appropriate, normal mood and affect Bilateral hips: left and right hips have mild pain with internal rotation, none with external ASSESSMENT & PLAN 68 yo male with mild hip oa in right, lumbar ddd, radicular pain, numbness in feet Reviewed lumbar xrays: shows ddd Reviewed hip xrays: shows mild/moderate oa bilaterally Given HEP Ordered lumbar MRI Will consider ERASTO No orders of the defined types were placed in this encounter. Peter Mcmullen MD, CAQSM Y RIG OPERATOR documented in this encounter Plan of Treatment Upcoming Encounters Date Type Specialty Care Team Description 05/15/2022 Hospital Encounter Surgery Singh Torres MD [facility] [address] [place] [address] (Wo rk) 05/15/2022 Surgery Surgery Neo Torres MD BLEPHAROPLASTY BILATERAL [facility] PTOSIS REPAIR BILATERAL [address] [place] [address] (Wo rk) 06/25/2022 Ancillary Procedure Cardiology Kirk Silver MD [address] [place] [address] (Wo rk) Scheduled Procedures Name Priority Associated Diagnoses Date/Time REPAIR, PTOSIS, BILATERAL, Dermatochalas is 05/15/2022 7:30 AM CDT WITH BILATERAL BLEPHAROPLASTY 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 Grade 1 spondylolisthesis at L5-S1 [...] BRYSON TORREZ MD Narrative 10/11/2019 1:15 PM SPRAY RIG OPERATOR MR LUMBAR SPINE WITHOUT CONTRAST 10/11/2019 12:03 [...] is 2 mm of spondylolisthesis at L5-S1. Senior Research Engineer ior alignment is otherwise normal. The conus [...] is 2 mm of spondylolisthesis at L5-S1. Senior Research Engineer ior alignment is otherwise normal. The conus [...] MD Peter Mcmullen MD IMG MRI ORDERABLES XR Hip Bilateral G/E 2 vw (10/06/2019 4:23 PM SPRAY RIG OPERATOR) Anatomical Region Laterality Modality Hip Bilateral Computed Radiography Specimen (Source) Anatomical Location Collection Method / Collectio n Time Received Time / Laterality Volume Impressions 10/07/2019 8:34 AM SPRAY RIG OPERATOR Impression: 1. No acute osseous abnormality. 2. Mild bilateral hip degenerative dominguez es without substantial joint space loss. FADI PINEDA Narrative 10/07/2019 8:34 AM SPRAY RIG OPERATOR 1 view of pelvis and 1 views [...] Mcmullen MD IMG DIAGNOSTIC IMAGING ORDER SOCORRO XR Lumbar Spine 2-3 Views* (10/06/2019 4:23 PM SPRAY RIG OPERATOR) Anatomical Region Laterality Modality Spine, T-spine, L-spine, Abdomen/Pelvis Computed Radiography Specimen (Source) Anatomical Location Collection Method / Collectio n Time Received Time / Laterality Volume Impressions 10/06/2019 4:29 PM SPRAY RIG OPERATOR Impression: 1. ??No acute osseous abnormality. 2. ??Multilevel degenerative changes mos t pronounced at L5-S1. FADI PINEDA Narrative 10/06/2019 4:29 PM SPRAY RIG OPERATOR 2 views lumbar spine radiographs 10/06/2019 4:25 [...] original. 2 views lumbar spine radiographs 10/06/19 4:25 PM History: DDD (degenerative disc disease) [...] or lumbosacral neuritis or radi culitis, unspecified Bilateral hip pain Pain in joint, pelvic region and thigh DDD (degenerative disc disease), lumbar Degeneration of lumbar or lumbosacral in tervertebral disc Lumbar radicular pain Thoracic or lumbosacral neuritis or radi culitis, unspecified Bilateral hip pain Pain in joint, pelvic region and thigh DDD (degenerative disc disease), lumbar Degeneration of lumbar or lumbosacral in tervertebral disc Lumbar radicular pain Thoracic or lumbosacral neuritis or radi culitis, unspecified 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
--- OUTSIDE RECORDS SUMMARY | 2022-05-02 12:37 | XMS_ITS | Encounter Summary ---
:1950 Author Organization [facility] Address [address] [facility] [place] [address] Care Team Providers Name Role Phone Anatoliy Jackson MD Primary Care Provider Heath More MD Unavailable Peter Gipson MD Unavailable Reason for Visit Reason Onset Date Comments Other 04/28/2016 Encounter Details Date Type Department Care Team Description 04/28/2016 Telephone [facility] Heart Brenda Concepcion RN Other Clinic [address] [place] [address] Social History Tobacco Use Types [...] this encounter Miscellaneous Notes Telephone Encounter - Brooke Castro RN - 05/02/2016 5:07 PM CDT Received returned call from pt ([phone] 05/02/16) [phone] 05/02/16 - Returned pt vm, left detailed message per pt request, with below information. Left call back number if further questions. Telephone Encounter - Brooke Castro RN - 05/02/2016 10:58 AM CDT Attempt to reach pt to discuss below recommendation. Left non-urgent vm to return the call. Telephone Encounter - Peter Aguiar MD - 05/01/2016 4:24 PM CDT Plavix does not directly cause anemia. If there is a bleeding source, microscopic or other, plavix can cause more blood loss than not plavix. Since he had a cath since I saw him in the office and majorstents looked fine, OK to discontinue plavix for good. Telephone Encounter - Brenda Concepcion RN - 04/28/2016 1:47 PM CDT Pt called to report that after his TURP procedure his hgb dropped to 8.2. Pt currently has been holding his plavix per instructions from his PMD. Pt concerned about staying on the plavix for an additional 6 months after his one year stent anniversary (03/2016) as recommended by as his has been researching and read that it can cause anemia. Pt's PMD told him that his Hgb was low last year (was 11.3 03/31/16 and 11.5 03/2015). Pt now wondering if the plavix is going to cause him to have trouble getting his hgb back up and wants to know 's thoughts on whether it can cause anemia. I told him it is most likely low from his surgery and that it does not look like it changed from the time he started the plavix compared to what it was in 2014. Will message to get his thoughts on how long he prefers pt stay on plavix. Pt said he will have hgb recheck on Thu and resume plavixon Thu per instructions from PMD. Chandana KELLY documented in this encounter Plan of Treatment Upcoming Encounters Date Type Specialty Care Team Description 05/15/2022 Hospital Encounter Surgery Singh Torres MD [facility] [address] [place] [address] (Wo rk) 05/15/2022 Surgery Surgery Neo Torres MD BLEPHAROPLASTY BILATERAL [facility] PTOSIS REPAIR BILATERAL [address] [place] [address] (Wo rk) 06/25/2022 Ancillary Procedure Cardiology Kirk Silver MD [address] [place] [address] (Wo rk) Scheduled Procedures Name Priority Associated [...] filedocumented in this encounter Care Teams Director Financial Systems Relationship Specialty Start Date End Date Anatoliy Jackson MD PCP - General 05/14/12 Heath More PCP - Internal Medicine INTERNAL MEDICINE - 01/06/14 MD Andreas ENDOCRINOLOGY, [facility] [address] [place] [phone] Peter Gipson PCP - Urology 04/02/15 MD Jordan [facility] [address] [place] [id number] documented as of this encounter
--- OUTSIDE RECORDS SUMMARY | 2022-05-02 12:37 | XMS_ITS | Encounter Summary ---
:1950 Author Organization [facility] Address [address] [facility] [place] [address] Care Team Providers Name Role Phone Anatoliy Jackson MD Primary Care Provider Heath More MD Unavailable Peter Gipson MD Unavailable Encounter Details Date Type Department Care Team Description 11/30/2017 Orders Only [facility] Peter Aguiar Coronary artery Heart Clinic MD Ish[place] disease involving [place] [address] [place] coronary artery [address] of [place] heart [address] [place] [address] without angina [place], [place] [phone] pectoris [phone] (Work) [phone] Social History Tobacco Use Types Packs/Day Years [...] 05/15/2022 Hospital Encounter Surgery Singh Torres MD [facility] [address] [place] [address] (Wo rk) 05/15/2022 Surgery Surgery Neo Torres MD BLEPHAROPLASTY BILATERAL [facility] PTOSIS REPAIR BILATERAL [address] [place] [address] (Wo rk) 06/25/2022 Ancillary Procedure Cardiology Kirk Silver MD [address] [place] [address] (Wo rk) Scheduled Procedures Name Priority Associated [...] Date/Time Associated Diagnosis Comme nts LIPID PROFILE STAT 11/30/2017 9:09 AM Coronary artery Resul ts for this CDT disease involving procedure are in [place] coronary the results artery of [place] section. heart without angina pectoris ALT STAT 11/30/2017 9:09 AM Coronary artery Result s for this CDT disease involving procedure are in [place] coronary the results artery of [place] section. heart without angina pectoris BASIC METABOLIC STAT 11/30/2017 9:09 AM Coronary artery Res ults for this PANEL CDT disease involving procedure are in [place] coronary the results artery of [place] section. heart without angina pectoris documented in this encounter Results (ABNORMAL) Basic metabolic panel (11/30/2017 9:09 AM CDT) P athologist Signature Sodium 139 133 - 144 11/30/2017 [facility] mmol/L 9:46 AM CDT [facility] Potassium 4.6 3.4 - 5.3 11/30/2017 [facility] mmol/L 9:46 AM [facility] Chloride 106 94 - 109 11/30/2017 [place] mmol/L 9:46 AM [facility] Carbon Dioxide 25 20 - 32 11/30/2017 [place] mmol/L 9:46 AM [facility] Anion Gap 8 3 - 14 11/30/2017 [place] mmol/L 9:46 AM [facility] Glucose 319 (H) 70 - 99 11/30/2017 [place] mg/dL 9:46 AM [facility] Comment: Fasting specimen Urea Nitrogen 38 (H) 7 - 30 mg/dL 11/30/2017 9:46 AM [facility] Creatinine 1.28 (H) 0.66 - 1.25 mg/dL 11/30/2017 9:46 AM [facility] GFR Estimate 56 (L) >60 mL/min/1.7m2 11/30/2017 9:46 AM [facility] Comment: Non GFR Calc GFR Estimate If 68 >60 mL/min/1.7m2 11/30/2017 9:46 A [facility] Comment: GFR Calc Calcium 8.6 8.5 - 10.1 mg/dL 11/30/2017 9:46 AM [facility] Specimen Anatomical Collection Method Collection Time Receive d Time (Source) Location / / Volume Laterality Blood specimen 11/30/2017 9:09 AM 018 9:10 (specimen) CDT AM CDT Peter Aguiar MD LAB - BLOOD ORDERABLES Performing Organization Address City/State/ZIP Code Phon e Number M [facility] [address] [place], [place] [address] [facility] [address] [phone] ALT (11/30/2017 9:09 AM CDT) P athologist Signature ALT 28 0 - 70 U/L 11/30/2017 [facility] 9:46 AM [facility] Specimen Anatomical Collection Method Collection Time Receive d Time (Source) Location / / Volume Laterality Blood specimen 11/30/2017 9:09 AM 018 9:10 (specimen) CDT AM CDT Peter Aguiar MD LAB - BLOOD ORDERABLES Performing Organization Address City/[facility]/ZIP Code Phon e Number M [facility] [address] [place], [place] [address] [facility] [address] [place] [phone], [facility] [phone] (ABNORMAL) Lipid Profile (11/30/2017 9:09 AM CDT) athologist Signature Cholesterol 98 <200 mg/dL 11/30/2017 [place] 9:46 AM [facility] Triglycerides 213 (H) <150 mg/dL 11/30/2017 [place] 9:46 AM [facility] Comment: Borderline high: ??150-199 mg/dl High: ? 200-499 mg/dl Very high: ? >499 mg/dl Fasting specimen HDL Cholesterol 31 (L) >39 mg/dL 11/30/2017 9:46 AM [facility] LDL Cholesterol 24 <100 mg/dL 11/30/2017 9:46 AM [facility] Comment: Desirable: <100 mg/dl Non HDL Cholesterol 67 <130 mg/dL 11/30/2017 9:46 AM [facility] Specimen Anatomical Collection Method Collection Time Receive d Time (Source) Location / / Volume Laterality Blood specimen 11/30/2017 9:09 AM 018 9:10 (specimen) CDT AM CDT Peter Aguiar MD LAB - BLOOD ORDERABLES Performing Organization Address City/[facility]/ZIP Code Phon e Number M [facility] [address] [place], [place] [address] [facility] [address] [place] [address], [facility] [phone] documented in this encounter Visit Diagnoses Diagnosis Coronary artery disease involving [place] coronary artery of [place] heart without angina pectoris 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 [address] [place] [address] Peter Gipson PCP - Urology 04/02/[address] [facility] [address] [place] [address] [address] [place], [place] [phone] documented as of this encounter
--- OUTSIDE RECORDS SUMMARY | 2022-05-02 12:38 | XMS_ITS | Encounter Summary ---
:1950 Author Organization [place] Address [address] [facility] [place] [address] Care Team Providers Name Role Phone Anatoliy Jackson MD Primary Care Provider Heath More MD Unavailable Peter Gipson MD Unavailable Encounter Details Date Type Department Care Team Description 03/31/2016 [facility] Abnormal stress test [address] [place] [address] Social History Tobacco Use [...] MD [facility] [address] [place] [address] (Wo rk) 05/15/2022 Surgery Surgery Neo Torres MD BLEPHAROPLASTY BILATERAL [facility], INTERNAL & [facility]GE[facility] [place] PTOSIS REPAIR BILATERAL [address] [place] [address] (Wo rk) 06/25/2022 Ancillary Procedure Cardiology Kirk Silver MD [address] [place] [address] (Wo rk) Scheduled Procedures Name Priority Associated Diagnoses Date/Time REPAIR, PTOSIS, BILATERAL, Dermatochalas is 05/15/2022 7:30 AM CDT WITH BILATERAL BLEPHAROPLASTY 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 PLATELET COUNT Routine 03/31/2016 10:47 Abnormal stress Result s for this AM CDT test procedure are i n the results section. PARTIAL THROMBOPLASTIN Routine 03/31/2016 10:47 Abnormal stres s Results for this TIME AM CDT test procedure are i n the results section. HEMOGLOBIN Routine 03/31/2016 10:47 Abnormal stress Results for this AM CDT test procedure are i n the results section. BASIC METABOLIC PANEL Routine 03/31/2016 10:47 Abnormal stress Results for this AM CDT test procedure are i n the results section. documented in this encounter Results Partial thromboplastin time (03/31/2016 10:47 AM CDT) P athologist Signature PTT 27 22 - [address] [facility] Specimen Anatomical Collection Method Collection Time Receive d Time (Source) Location / / Volume Laterality Blood specimen 03/31/2016 10:47 6 (specimen) AM CDT 10:48 AM CDT Debra Nesbitt QUALITY CONTROL REPRESENTATIVE TRANSLATOR DEAF LAB - BLOOD ORDERABLES Performing Organization Address [facility]/ZIP [facility] Phon e Number [facility] [address] [place], [place] [address] [facility] [address] [place], [place] [address], [place] [phone] PROTIME/INR (03/31/2016 10:47 AM CDT) P athologist Signature INR 1.08 0.86 - 1.14 [facility] Specimen Anatomical Collection Method Collection Time Receive d Time (Source) Location / / Volume Laterality Blood specimen 03/31/2016 10:47 6 (specimen) AM CDT 10:48 AM CDT Debra Nesbitt APRN, CNP LAB - BLOOD ORDERABLES Performing Organization Address [facility] Phon e Number [facility] [address] [place], [place] [address] [facility] [address] [place], [place] [address], [place] [phone] Platelet count (03/31/2016 10:47 AM CDT) P athologist Signature Platelet Count 168 150 - [address]9[facility] Specimen Anatomical Collection Method Collection Time Receive d Time (Source) Location / / Volume Laterality Blood specimen 03/31/2016 10:47 6 (specimen) AM CDT 10:48 AM CDT Debra Nesbitt APRN TRANSLATOR DEAF LAB - BLOOD ORDERABLES Performing Organization Address [facility] Phon e Number [facility] [address] [place], [place] [address] [facility] [address] [place], [place] [address], [place] [phone] (ABNORMAL) Basic metabolic panel (03/31/2016 10:47 AM CDT) Analysis Performed At Patho logist Time Signature Sodium 136 133 - 144 [place] [facility] Potassium 5.6 (H) 3.4 - 5.3 [place] mmol/L [facility] Chloride 106 94 - 109 [place] mmol/L [facility] Carbon Dioxide 24 20 - 32 [place] mmol/L [facility] Anion Gap 6 3 - 14 [place] mmol/L [facility] Glucose 362 (H) 70 - 99 [place] mg/dL [facility] Urea Nitrogen 50 (H) 7 - 30 [place] mg/dL [facility] Creatinine 1.36 (H) 0.66 - [place] 1.25 mg/dL [facility] GFR Estimate 52 (L) >60 [place] mL/min/1.[address] Comment: Non GFR Calc GFR Estimate If Black 63 >60 mL/min/1.7m2 F [facility] Comment: GFR Calc Calcium 8.3 (L) 8.5 - 10.1 mg/dL [facility] Specimen Anatomical Collection Method Collection Time Receive d Time (Source) Location / / Volume Laterality Blood specimen 03/31/2016 10:47 6 (specimen) AM CDT 10:48 AM CDT Debra Nesbitt APRN, CNP LAB - BLOOD ORDERABLES Performing Organization Address City/State/ZIP Code Phon e Number M [facility] [address] [place], [place] [address] [place] [address] [address] [place], [place] [address] [place] [address] (ABNORMAL) Hemoglobin (03/31/2016 10:47 AM CDT) P athologist Signature Hemoglobin 11.3 (L) 13.3 - 17.7 [place] g/dL [facility] Specimen Anatomical Collection Method Collection Time Receive d Time (Source) Location / / Volume Laterality Blood specimen 03/31/2016 10:47 6 (specimen) AM CDT 10:48 AM CDT Debra Nesbitt APRN, CNP LAB - BLOOD ORDERABLES Performing Organization Address City/State/ZIP Code Phon e Number M [facility] [address] [place], [place] [address] [facility] [address] [place], [place] 55 [facility] [phone] documented in this encounter Visit Diagnoses Diagnosis Abnormal stress test Other nonspecific abnormal cardiovascula r system function study 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
--- OUTSIDE RECORDS SUMMARY | 2022-05-02 12:38 | XMS_ITS | Encounter Summary ---
:1950 Author Organization [place] Address [address] [facility] [place] [address] Care Team Providers Name Role Phone Anatoliy Jackson MD Primary Care Provider Heath More MD Unavailable Peter Gipson MD Unavailable Reason for Visit Reason Onset Date Comments Other 01/16/2016 Encounter Details Date Type Department Care Team Description 01/16/2016 Telephone [facility] Aster Rivas RN [id number] [place] [address] Social History Tobacco Use Types [...] this encounter Miscellaneous Notes Telephone Encounter - Ariella Rivas RN - 01/17/2016 9:47 AM CDT Spoke with Dr Leonela Currie's nurse at [facility] to review Dr Aguiar's message regarding Plavix hold for prostate surgery -- pt can stop Plavix for 1 week before and 1 week or so after surgery (could be 2 weeks) if pt wants to proceed with surgery at this time. She will forward the message to the surgeon's office (Dr Verde or Dr Arana). [place] Telephone Encounter - Ariella Rivas RN - 01/16/2016 8:[address] Gipson's urology office visit note stating that pt has a large prostate gland (pt doing self cath). Treatment options were discussed including surgery as a possibility when pt can come off of Plavix. Dr Aguiar reviewed Dr Gipson's OV note and states that pt can stop Plavix for 1 week before and 1 week or so after surgery (could be 2 weeks) if pt wants to proceed with surgery at this time. Left message for pt to return the call to review this information. Spoke with [facility], , to review Dr Aguiar's recommendation regarding Plavix hold. Left message for Dr Gipson's office to return the call to review Plavix hold information. [place] Spoke with pt to review the above information regarding Plavix hold. He states that at this point they are waiting until end march to meet with surgeon to discuss surgery. [place] documented in this encounter Plan of Treatment Upcoming Encounters Date Type Specialty Care Team Description 05/15/2022 Hospital Encounter Surgery Singh Torres MD [facility] [address] [place] [id number] (Wo rk) 05/15/2022 Surgery Surgery Neo Torres MD BLEPHAROPLASTY BILATERAL [facility], INTERNAL & SURGEONS PA PTOSIS REPAIR BILATERAL [address] [place] [address] (Wo rk) 06/25/2022 Ancillary Procedure Cardiology Kirk Silver MD [address] [place] [address] (Wo rk) Scheduled Procedures Name Priority Associated [...] on filedocumented in this encounter Care Teams Selector Packer Relationship Specialty Start Date End Date Anatoliy Jackson MD PCP - General 05/14/12 Heath More PCP - Internal Medicine INTERNAL MEDICINE - 01/06/14 MD Andreas ENDOCRINOLOGY, [facility] [address] [place] [phone] Peter Gipson PCP - Urology 04/02/15 MD Jordan [facility] [address] [place] [phone] documented as of this encounter
--- OUTSIDE RECORDS SUMMARY | 2022-05-02 12:38 | XMS_ITS | Encounter Summary ---
:1950 Author Organization [place] Address [address] [facility] 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 (H) [facility] [address] [facility] [address] [place] [address] Referral ID Status Reason Start Date Expiration Date Visits Requ ested Visits Authorized [id number] Closed 03/25/2016 03/25/2017 1 1 Reason for Visit Reason Onset Date Comments Results 03/24/2016 abnormal stress test 03/24/16 Encounter Details Date Type Department Care Team Description 03/24/2016 Telephone [facility] Tabitha, Results (abnormal stress Clinic Anu Allen RN test 03/24/16) [address] [facility] [address] [place] [address] Social History Tobacco [...] encounter Miscellaneous Notes Telephone Encounter - Brooke Valadez RN - 03/25/2016 12:55 PM CDT Returning pt's vm. Left message again (no answer). Need to review below recommendation with pt. Telephone Encounter Nikita Anderson (MR# [id number]) Telephone Encounter Info ?? Author Note Status Last Update User Last Update Date/Time ?? Peter Aguiar MD Signed Peter Aguiar MD 03/24/2016 ??5:09 PM ?? Telephone Encounter ?? Expand All Collapse All Given stress test findings (more prominent ST depression, lateral ischemia, possible worsened LVEF, needs coronary angio to assess for ostial LCX and distal LM CAD before proceeding with TURP Telephone Encounter - Brooke Valadez RN - 03/25/2016 9:48 AM CDT Call placed to pt, bandar left (full name on voicemail) that I'm calling to discuss stress test results (03/24) and review new recommendation from Dr. Aguiar. Call back number left. Telephone Encounter - Peter Aguiar MD - 03/24/2016 5:07 PM CDT Given stress test findings (more prominent ST depression, lateral ischemia, possible worsened LVEF, needs coronary angio to assess for ostial LCX and distal LM CAD before proceeding with TURP Telephone Encounter - Tiffany Lu RN - 03/24/2016 4:08 PM CDT Received call from today with this abnormal stress test results. You saw this pt on 03/18/16. Please advise. GATED MYOCARDIAL PERFUSION SCINTIGRAPHY EXERCISE- ONE DAY STUDY ?03/24/2016 1:22 PM?? NIKITA ANDERSON?? 65 years?? Male?? 1950. ?? Indication/Clinical History: Coronary disease ?? Impression 1.?? Myocardial perfusion imaging using single isotope technique demonstrated small area of ischemia in the inferolateral apex and inferolateral apical segment Small to moderate area of ischemia in the lateral mid ventricle to base in association with a small inferior/inferolateral basal infarct. ?? 2. Gated images demonstrated inferior/inferolateral basal hypokinesis and lateral hypokinesis from base to mid ventricle more prominent on post stress images.?? The left ventricular systolic function is 37% at rest and 39% post stress. 3. Compared to the prior study from 12/29/2014, small to medium perfusion defect was described in the mid to basal inferior wall and basal inferolateral wall partly reversible consistent with ischemia in the RCA distribution . Apical ischemia was not described in the extent of reversibility within the small to medium perfusion defect was not described for comparison documented in this encounter Plan of Treatment Upcoming Encounters Date Type Specialty Care Team Description 05/15/2022 Hospital Encounter Surgery Singh Torres MD [facility] [address] [place] [id number] (Wo rk) 05/15/2022 Surgery Surgery Neo Torres MD BLEPHAROPLASTY BILATERAL [facility], INTERNAL & SURGEONS PA PTOSIS REPAIR BILATERAL [address] [place] [id number] [phone] (Wo rk) 06/25/2022 Ancillary Procedure Cardiology Kirk Silver MD [address] [place] [address] (Wo rk) Scheduled Procedures Name Priority Associated [...] Referral Routine Coronary artery di sease Expected: 03/25/2016 [facility] (Angelica munoz), Provider Expires: 2017 documented as of this encounter Visit Diagnoses Diagnosis Coronary artery disease - Primary Coronary atherosclerosis of unspecified type of vessel, enterprise or graft 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
--- OUTSIDE RECORDS SUMMARY | 2022-05-02 12:38 | XMS_ITS | Encounter Summary ---
:1950 Author Organization [place] Address [address] [facility] [place] [address] Care Team Providers Name Role Phone Anatoliy Jackson MD Primary Care Provider Heath More MD Unavailable Peter Gipson MD Unavailable Reason for Visit Reason Comments Orders Pre-cath labs Encounter Details Date Type Department Care Team Description 03/31/2016 Orders Only [facility] Dee [place] A bnormal stress test [facility] RN (Primary Dx) [facility] [address] Social History Tobacco Use Types [...] [address] [place] [address] (Wo rk) 05/15/2022 Surgery Surgery Neo Torres MD BLEPHAROPLASTY BILATERAL [facility], INTERNAL & SURGEONS PA PTOSIS REPAIR BILATERAL [address] [place] [phone] (Wo rk) 06/25/2022 Ancillary Procedure Cardiology Kirk Silver MD [address] [place] [address] (Wo rk) Scheduled Procedures Name Priority Associated Diagnoses Date/Time REPAIR, PTOSIS, BILATERAL, Dermatochalas is 05/15/2022 7:30 AM CDT WITH BILATERAL BLEPHAROPLASTY 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 REPAIR, ECTROPION, EYE, Dermatochalasis 05/15/2022 7:30 AM CDT BILATERAL 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 documented as of this encounter Results Partial thromboplastin time (03/31/2016 10:47 AM CDT) athologist Signature PTT 27 22 - 37 sec [facility] Specimen Anatomical Collection Method Collection Time Receive d Time (Source) Location / / Volume Laterality Blood specimen 03/31/2016 10:47 6 (specimen) AM CDT 10:48 AM CDT Debra Nesbitt FOUNDER / CEO FORGE OPERATOR LAB - BLOOD ORDERABLES Performing Organization Address City/State/ZIP Code Phon e Number M [facility] [address] [place], [place] [address] [facility] [address] [place] [address] [phone] PROTIME/INR (03/31/2016 10:47 AM CDT) athologist Signature INR 1.08 0.86 - 1.14 [facility] Specimen Anatomical Collection Method Collection Time Receive d Time (Source) Location / / Volume Laterality Blood specimen 03/31/2016 10:47 6 (specimen) AM CDT 10:48 AM CDT Debra Rose Laz LEDESMA CNP LAB - BLOOD ORDERABLES Performing Organization Address City/State/ZIP Code Phon e Number [facility] [address] [place], [place] [address] [facility] [address] [place], [place] [address], [facility] [phone] Platelet count (03/31/2016 10:47 AM CDT) P athologist Signature Platelet Count 168 150 - 450 [place] [id number] [facility] Specimen Anatomical Collection Method Collection Time Receive d Time (Source) Location / / Volume Laterality Blood specimen 03/31/2016 10:47 6 (specimen) AM CDT 10:48 AM CDT Debra Rose Laz LEDESMA CNP LAB - BLOOD ORDERABLES Performing Organization Address City/State/ZIP [facility] e [facility] [address] [place], [place] [address] [facility] [address] [place], [place] [address] [phone] (ABNORMAL) Basic metabolic panel (03/31/2016 10:47 AM CDT) Analysis Performed At Patho logist Time Signature Sodium 136 133 - 144 [place] mmol/L [facility] Potassium 5.6 (H) 3.4 - 5.3 [place] mmol/L [facility] Chloride 106 94 - 109 [place] mmol/L [facility] Carbon Dioxide 24 20 - 32 [place] mmol/L [facility] Anion Gap 6 3 - 14 [place] mmol/L [facility] Glucose 362 (H) 70 - 99 [place] mg/dL [facility] Urea Nitrogen 50 (H) 7 - 30 [place] mg/dL [facility] Creatinine 1.36 (H) 0.66 - [place] 1.25 mg/dL [facility] GFR Estimate 52 (L) >60 [place] mL/min/1.[address] Comment: Non GFR Calc GFR Estimate If Black 63 >60 mL/min/1.7m2 F [facility] Comment: GFR Calc Calcium 8.3 (L) 8.5 - 10.1 mg/dL [facility] Specimen Anatomical Collection Method Collection Time Receive d Time (Source) Location / / Volume Laterality Blood specimen 03/31/2016 10:47 6 (specimen) AM CDT 10:48 AM CDT Debra Nesbitt APRN, CNP LAB - BLOOD ORDERABLES Performing Organization Address City/[facility]/ZIP [facility] Phon e Number M [facility] [address] [place], [place] [address] [place] [address] [address] [place], [place] [address], [facility] [phone] (ABNORMAL) Hemoglobin (03/31/2016 10:47 AM CDT) athologist Signature Hemoglobin 11.3 (L) 13.3 - 17.7 [place] g/[facility] Specimen Anatomical Collection Method Collection Time Receive d Time (Source) Location / / Volume Laterality Blood specimen 03/31/2016 10:47 6 (specimen) AM CDT 10:48 AM CDT Debra Nesbitt APRN, CNP LAB - BLOOD ORDERABLES Performing Organization Address City/State/ZIP Code Phon e Number [facility] [address] [place], [place] [address] [place] [address] [address] [place], [place] [address], [facility] [phone] documented in this encounter Visit Diagnoses Diagnosis Abnormal stress test - Primary Other nonspecific abnormal cardiovascula r system function study 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 [address] [place] [phone] Peter Gipson PCP - Urology 04/02/15 MD Jordan [facility] [address] [place] [address] [address] [place] [address] documented as of this encounter
--- OUTSIDE RECORDS SUMMARY | 2022-05-02 12:38 | XMS_ITS | Encounter Summary ---
:1950 Author Organization [place] Address [address] [facility] [place] [address] Care Team Providers Name Role Phone Anatoliy Jackson MD Primary Care Provider Heath More MD Unavailable Peter Gipson MD Unavailable Reason for Visit Reason Comments Heart Problem CAD - Closed Specialty Diagnoses / Procedures Referred By Contact Refer red To Contact Diagnoses Angina pectoris (H) Coronary artery disease involving [place] coronary artery of [place] heart without angina pectoris S/P coronary artery stent placement Peter Aguiar MD [address] [place] [address] Referral ID Status Reason Start Date Expiration Date Visits Requ ested Visits Authorized [id number] Closed 03/05/2016 03/05/2017 1 1 Encounter Details Date Type Department Care Team Description 03/18/2016 Office Visit [facility] Coronary erick ry disease involving [place] coronary artery of [place] heart without angina pectoris (Primary Dx); [facility] MD Ishan Angina pectoris; [facility] [address] S/P coronary artery stent pl acement; [address] Hyperlipidemia LDL goal <70; [address] [place] [address] Essential hypertension with goal blood p ressure less than 130/80; [place] [phone] Postsurgical percutaneous transluminal coronary angioplasty status; [id number] (Work) Status post coronary angioplasty [phone] Social History Tobacco Use Types Packs/Day Years [...] Sign Reading Time Taken Comments Blood Pressure 112/60 03/18/2016 9:56 AM CDT Pulse 60 03/18/2016 9:56 AM CDT Temperature - - Respiratory Rate - - Oxygen Saturation - - Inhaled Oxygen Concentration - - Weight 100 kg (220 lb 8 oz) 03/18/2016 9:56 AM CDT Height 180.3 cm (5' 11) 03/18/2016 9:56 AM CDT Body Mass Index 30.75 03/18/2016 9:56 AM CDT documented in this encounter Progress Notes Peter Aguiar MD - 03/18/2016 11:02 AM CDT HPI and Plan: This 64-year-old gentleman is seen in follow-up of his coronary disease, angina pectoris, and?? complex circumflex stenting (April 09, 2015). He has comorbidities of significant diabetes, hypertension, dyslipidemia. There is also some mild chronic renal insufficiency. He had developed limiting and progressive angina last summer, mainly manifested by dyspnea on exertion and exertional fatigue with declining functional status.?? Angiography in the spring showed circumflex disease as well as distal right and proximal right PDA disease although the right systemwas fairly modest caliber.?? He did not improve on multiple medical therapy, and underwent stenting of the ostial circumflex, and mid circumflex and second obtuse marginal bifurcation lesion.?? He noted significantly improvement after that though he continued to have occasional mild chest discomfort with activity requiring rest for relief.?? With very careful warm up this was less likely to happen.??When he pretreated with sublingual nitroglycerin he would get less symptoms and they would resolve fairly quickly while he continued activity.?? This was occurring while on 3 anti-anginal drugs (metoprolol, amlodipine, isosorbide mononitrate). His PSA had again risen earlier this year and so he underwent biopsy.?? He tolerated a week off of Plavix without problems.?? He reports biopsy did not show malignancy, however he developed urinary retention following that and has required self-catheterization since then.?? This continues >3 monthsafter finasteride started although there may be some improvement. He is now being considered for TURP with subtotal prostatectomy He has not been doing major exercise or workouts since See but he is resumed his normal activities such as hours of gardening, turning mulch piles, mowing, and walking at a normal pace. He is currentlynot having any angina with those activities. He never gets this symptom at rest,?? has not had resting shortness of breath, orthopnea, edema, bleeding, focal neurologic symptoms, palpitations dizzinessor syncope. Denies myalgias or muscle weakness. He had some recent orthostatic symptoms, blood pressures were noted to be under 100/50, and his lisinopril/hydrochlorothiazide was cut back. His orthostasis has resolved. Current blood pressures are running 110 systolic range. This is sufficient. Resting blood pressure is well-controlled today at 112/60. Rhythm is regular. No evidence of volume overload. Normal pulmonary, cardiac, peripheral vascular exam Recent lipids showed him at intense goal LDL CHOL? 113? 12/06/2015 HDL? 33? 12/06/2015 LDL? 49? 12/06/2015 TRIG? 154? 12/06/2015 Impression/plan 1-angina pectoris.??Pattern stable but was interfering with his workouts previously.?? With his current activity level he is not having significant angina. He feels like this is his desired activity level but he is not doing a more vigorous workouts he was previously doing. The residual unrevascularized territories are very small first obtuse marginal which is too small to stent, and his distal rightand PDA, which could be stented if necessary.?? 2-coronary artery disease. Status post multiple circumflex stents, one of which was ostial. This wasabout a year ago. If he's considering essentially a total prostatectomy, I think we should do a stress study to make sure there's been no development of severe ostial circumflex or distal left main disease. We will proceed with that within the week. If there is only ischemia in the territory of the PDA lesion and he continues to be asymptomatic, I think we can continue medical therapy. Normal ejection fraction no heart failure or arrhythmia symptoms. Blood pressure and lipids well controlled. Not smoking. Working on diabetes control.??Lipids well controlled.?? Exercise/activity fair.?? Overall risk factor intervention is going well.? 3-status post?? left circumflex stenting. Stable. Continue dual antiplatelet therapy pending stress study results. If this is normal or low risk, he could then proceed with prostatectomy stopping the Plavix a week ahead of time and resuming it about a week afterwards. I would otherwise like to continue it for at least another 6 months given the kind of stenting he underwent. 4-dyslipidemia, at intense goal and is tolerating statin. This will be continued. 5-symptomatic BPH. Likely will need prostatectomy as above. If he has a non- risk stress study, remains essentially asymptomatic for angina, he can proceed with this with a temporary discontinuation ofhis Plavix. 6-hypertension, very well controlled. Orthostatic symptoms and hypotension appeared to be resolved with recent decrease of his antihypertensives. Orders Placed This Encounter Procedures ??? NM Exercise stress test (nuc card) ??? Follow-Up with Medical Aides Teacher Orders Placed This Encounter Medications ??? clopidogrel (PLAVIX) 75 MG tablet Sig: Take 1 tablet (75 mg) by mouth daily Dispense: 90 tablet Refill: 2 Medications Discontinued During This Encounter Medication Reason ??? ciprofloxacin (CIPRO) 500 MG tablet Therapy completed ??? clopidogrel (PLAVIX) 75 MG tablet Reorder Encounter Diagnoses Name Primary? Coronary artery disease involving [place] coronary artery of [place] heart without angina pectorisYes ??? Angina pectoris ??? S/P coronary artery stent placement ? ? Hyperlipidemia LDL goal <70 ??? Essential hypertension with goal blood pressure less than 130/80 ??? Postsurgical percutaneous transluminal coronary angioplasty status ??? Status post coronary angioplasty CURRENT MEDICATIONS: Current Outpatient Prescriptions Medication Sig [...] mg by mouth 2 times daily ??? tamsulosin (FLOMAX) 0.4 MG 24 hr capsule Take 0.4 mg by mouth At Bedtime ??? aspirin 325 MG tablet Take 325 [...] SOLN as directed 100 0 ??? [DISCONTINUED] clopidogrel (PLAVIX) 75 MG tablet Take 1 tablet (75 mg) by mouth daily 90 tablet 2 ALLERGIES Allergies Allergen Reactions ??? Atorvastatin Other [...] Successful PCI to Ostial LCX with JAVIER FAMILY HISTORY: Family History Problem Relation Age of Onset ??? Diabetes Maternal Grandmother ??? Hypertension Maternal [...] Eyes: Positive for glasses ENT: Positive for postnasal drainage;hearing loss for years, small amount Respiratory: Positive for cough Cardiovascular: Positive for;lightheadedness;dizziness;fatigue Gastroenterology: Negative Genitourinary: Positive for retention;prostate problem High PSA - takes flomax, using a catheter Musculoskeletal: Positive for neck pain;arthritis;foot pain Fingers arthritis, knees hurt a bit- perpt, foot pain at night, carpal tunnel Neurologic: Positive for numbness or tingling of hands occasionally Psychiatric: Negative Heme/Lymph/Imm: Positive for easy bruising;allergies RX Endocrine: Positive for diabetes Physical Exam: Vitals: BP 112/60 mmHg Pulse 60 Ht 1.803 m (5' 11) Wt 100.018 kg (220 lb 8 oz) BMI 30.77 kg/m2 Constitutional: cooperative, alert and oriented, well developed, well nourished, in no acute distress Skin: warm and dry to the touch, no apparent skin lesions or masses noted Head: normocephalic, no masses or lesions Eyes: pupils equal and round;sclera white;EOMS intact ENT: no pallor or cyanosis Neck: JVP normal;carotid pulses are full and equal bilaterally;no carotid bruit Chest: normal respiratory excursion;clear to auscultation Cardiac: regular rhythm;normal S1 and S2;no S3 or S4;no murmurs, gallops or rubs detected Abdomen: abdomen soft;no HSM;non-tender;no bruits Vascular: pulses full and equal Extremities and Back: no deformities, clubbing, cyanosis, erythema observed;no edema Neurological: affect appropriate, oriented to time, person and place CC Peter Aguiar MD [facility] [address] [place] [address] documented in this encounter Plan of Treatment Upcoming Encounters Date Type Specialty Care Team Description 05/15/2022 Hospital Encounter Surgery Singh Torres MD [facility] [address] [place] [id number] (Wo rk) 05/15/2022 Surgery Surgery Neo Torres MD BLEPHAROPLASTY BILATERAL [facility] PTOSIS REPAIR BILATERAL [address] [place] [id number] (Wo rk) 06/25/2022 Ancillary Procedure Cardiology Kirk Silver MD [address] [place] [address] (Wo rk) Scheduled Procedures Name Priority Associated Diagnoses Date/Time REPAIR, PTOSIS, BILATERAL, Dermatochalas is 05/15/2022 7:30 AM CDT WITH BILATERAL BLEPHAROPLASTY 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 REPAIR, ECTROPION, EYE, Dermatochalasis 05/15/2022 7:30 AM CDT BILATERAL 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 documented as of this encounter Results NM Exercise stress test (nuc card) (03/24/2016 1:22 PM CDT) Anatomical Region Laterality Modality Chest Nuclear Medicine Specimen (Source) Anatomical Location Collection Method / Collectio n Time Received Time / Laterality Volume Narrative 03/24/2016 3:52 PM CDT GATED MYOCARDIAL PERFUSION SCINTIGRAPHY EXERCISE- ONE DAY STUDY 03/24/2016 1:22 PM ??NIKITA ANDERSON ??65 years ??Male ??1950. Indication/Clinical History: Coronary di sease Impression 1. ??Myocardial perfusion imaging using single isotope technique demonstrated small area of ischemia in t he inferolateral apex and inferolateral apical segment Small to moderate area of ischemia in th e lateral mid ventricle to base in association with a small inferio r/inferolateral basal infarct. 2. Gated images demonstrated inferior/in ferolateral basal hypokinesis and lateral hypokinesis from base to mid ventricle more prominent on post stress images. ??The left ventricul ar systolic function is 37% at rest and 39% post stress. 3. Compared to the prior study from 12/29, small to medium perfusion defect was described in the mi d to basal inferior wall and basal inferolateral wall partly reversib le consistent with ischemia in the RCA distribution . Apical ischemia w as not described in the extent of reversibility within the small to med ium perfusion defect was not described for comparison Procedure The patient performed treadmill exercise using a Vinod protocol, completing 9 minutes and 30 seconds with an estimated workload of 11.9 METS. ??The test was terminated due to pan pacheco. The heart rate was 54 beats per minute at baseline and increas ed to 139 beats at peak exercise, which was 90% of the maximum p redicted heart rate. The rest blood pressure was 140/62 mm/Hg and peak blood pressure is 172/66mm/Hg with rate pressure product of 23,908. Th e patient experienced 2/10 chest tightness with exertion subsiding at 6 minutes of recovery during the test. The patient not present ly on a beta hong. Myocardial perfusion imaging was perform ed at rest, approximately 45 minutes after the injection intravenousl y of 4.02of Tc-99m Myoview. At peak exercise, the patient was injected intravenously with 11.71 mCi of ??Tc-99m Myoview and exercise continu ed for approximately 1 minute. Gated post-stress tomographic imaging wa s performed approximately 30 minutes after stress EKG Findings The resting EKG demonstrated sinus rhyth m with nonspecific ST abnormalities . The stress EKG demonstra ambrosio very prominent ST depression measuring up to 4 mm in the l ateral and inferior leads with prominent ST elevation in aVR as well as V1. EKG is abnormal consistent with ischemia Tomographic Findings Overall, the study quality is adequate . On the stress images, there is a decrease in uptake at the inferolat eral apex and base lateral mid ventricle. On the rest images,there is a decrease in uptake at the inferior and inferolateral base which is mild and inferior and inferoseptal basal segment. There is a d ecrease in uptake at the inferior mid ventricle and trivially dec reased uptake at the inferolateral apex. Gated images demonst rated inferior inferolateral basal hypokinesis and lateral hypokinesi s from base to been ventricle as outlined above. The left ventricular ejection fraction was calculated to be 39% post stress. TID wa s not seen with an index of 1.19. LOLIS RYDER MD Procedure Note Lolis Ryder MD - 03/24/2016 GATED MYOCARDIAL PERFUSION SCINTIGRAPHY EXERCISE- ONE DAY STUDY 03/24/2016 1:22 PM NIKITA ANDERSON 65 yea rs Male 1950. Indication/Clinical History: Coronary di sease Impression 1. Myocardial perfusion imaging using si ngle isotope technique demonstrated small area of ischemia in t he inferolateral apex and inferolateral apical segment Small to moderate area of ischemia in th e lateral mid ventricle to base in association with a small inferio r/inferolateral basal infarct. 2. Gated images demonstrated inferior/in ferolateral basal hypokinesis and lateral hypokinesis from base to mid ventricle more prominent on post stress images. The left ventricular systolic function is 37% at rest and 39% post stress. 3. Compared to the prior study from 12/29, small to medium perfusion defect was described in the mi d to basal inferior wall and basal inferolateral wall partly reversib le consistent with ischemia in the RCA distribution . Apical ischemia w as not described in the extent of reversibility within the small to med ium perfusion defect was not described for comparison Procedure The patient performed treadmill exercise using a Vinod protocol, completing 9 minutes and 30 seconds with an estimated workload of 11.9 METS. The test was terminated due to fat igue. The heart rate was 54 beats per minute at baseline and increas ed to 139 beats at peak exercise, which was 90% of the maximum p redicted heart rate. The rest blood pressure was 140/62 mm/Hg and peak blood pressure is 172/66mm/Hg with rate pressure product of 23,908. Th e patient experienced 2/10 chest tightness with exertion subsiding at 6 minutes of recovery during the test. The patient not present ly on a beta hong. Myocardial perfusion imaging was perform ed at rest, approximately 45 minutes after the injection intravenousl y of 4.02of Tc-99m Myoview. At peak exercise, the patient was injected intravenously with 11.71 mCi of Tc-99m Myoview and exercise continued for approximately 1 minute. Gated post-stress tomographic imaging wa s performed approximately 30 minutes after stress EKG Findings The resting EKG demonstrated sinus rhyth m with nonspecific ST abnormalities . The stress EKG demonstra ambrosio very prominent ST depression measuring up to 4 mm in the l ateral and inferior leads with prominent ST elevation in aVR as well as V1. EKG is abnormal consistent with ischemia Tomographic Findings Overall, the study quality is adequate . On the stress images, there is a decrease in uptake at the inferolat eral apex and base lateral mid ventricle. On the rest images,there is a decrease in uptake at the inferior and inferolateral base which is mild and inferior and inferoseptal basal segment. There is a d ecrease in uptake at the inferior mid ventricle and trivially dec reased uptake at the inferolateral apex. Gated images demonst rated inferior inferolateral basal hypokinesis and lateral hypokinesi s from base to been ventricle as outlined above. The left ventricular ejection fraction was calculated to be 39% post stress. TID wa s not seen with an index of 1.19. LOLIS RYDER MD Peter Aguiar MD IMG NM ORDERABLES documented in this encounter Visit Diagnoses Diagnosis Coronary artery disease involving t[place] coronary artery of [place] heart without angina pectoris - Primary Angina pectoris Other and unspecified angina pectoris S/P coronary artery stent placement Postsurgical percutaneous transluminal c oronary angioplasty status Hyperlipidemia LDL goal <70 Other and unspecified hyperlipidemia Essential hypertension with goal blood p ressure less than 130/80 Postsurgical percutaneous transluminal c oronary angioplasty status Status post coronary angioplasty Postsurgical percutaneous transluminal c oronary angioplasty status Coronary artery disease involving [place] coronary artery of [place] heart without angina pectoris S/P coronary artery stent placement 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 [address] [place] [address] Peter Gipson PCP - Urology 04/02/15 MD Jordan [facility] [address] [place] [address] [phone] documented as of this encounter
--- OUTSIDE RECORDS SUMMARY | 2022-05-02 12:38 | XMS_ITS | Encounter Summary ---
:1950 Author Organization [place] Address [address] [facility] [place] [address] Care Team Providers Name Role Phone Anatoliy Jackson MD Primary Care Provider Heath More MD Unavailable Peter Gipson MD Unavailable Reason for Visit (Routine) - Closed Specialty Diagnoses / Procedures Referred By Contact Refer red To Contact Cardiology Diagnoses per danielle, wt:220 *went over prep and gave to pt. 03/18 [facility] Cv Nuclear Medicine Procedures KS SH CV MPI [address] [facility] [address] [place] [address] Phone: Referral ID Status Reason Start Date Expiration Date Visits Requ ested Visits Authorized [id number] Closed 03/18/2016 03/18/2017 1 1 Encounter Details Date Type Department Care Team Description 03/24/2016 Hospital Encounter [facility] Peter Aguiar onary artery disease involving [place] coronary artery of [place] heart without angina pectoris; [facility] MD Ishan S/P coronary artery stent placement [address] [place] [address] [place] [address] Social History Tobacco Use Types Packs/Day Years [...] by mouth daily Coronary artery disease involving [place] coronary artery of [place] heart without angina pectoris, Essential hypertension aspirin 325 MG tablet Take 81 mg by mouth 0 02/18/2021 daily carvedilol (COREG) 12.5 Take 1 tablet (12.5 180 tablet 3 04/201609/02/2016 MG tabletIndications: mg) by mouth 2 times Coronary artery disease daily (with meals) involving [place] coronary artery of [place] heart without angina pectoris cloNIDine (CATAPRES) 0.1 Take 0.1 mg by mouth 0 04/18/2021 MG tablet 2 times daily clopidogrel (PLAVIX) 75 Take 1 tablet (75 90 tablet 2 03/1809/02/2016 MG tabletIndications: mg) by mouth daily Postsurgical percutaneous transluminal coronary angioplasty status, Status post coronary angioplasty, Coronary artery disease involving [place] coronary artery of [place] heart without angina pectoris finasteride (PROSCAR) 5 [...] by mouth 0 11/30/2017 MG tablet daily tamsulosin (FLOMAX) 0.4 Take 0.4 mg by mouth 0 04/11/2016 MG 24 hr capsule At Bedtime documented as of this encounter Plan of Treatment Upcoming Encounters Date Type Specialty Care Team Description 05/15/2022 Hospital Encounter Surgery Singh Torres MD [facility] [address] [place] [id number] (Rosalva rk) 05/15/2022 Surgery Surgery Neo Torres MD BLEPHAROPLASTY BILATERAL [facility] PTOSIS REPAIR BILATERAL [address] [place] [id number] (Wo rk) 06/25/2022 Ancillary Procedure Cardiology Kirk Silver MD [address] [place] [id number] (Rosalva rk) Scheduled Procedures Name Priority Associated [...] Diagnosis Comme nts NM MPI TREADMILL Routine 03/24/2016 1:22 PM Coronary artery Re sults for this CDT disease involving procedure are in [place] coronary the results artery of [place] section. 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 documented in this encounter Administered Medications Inactive Administered Medications - up to 3 most recent administrations Medication Order MAR Action Action Date Dose Rate Site sodium chloride (PF) 0.9% PF Given 03/24/2016 11:27 AM CDT 10 mL s flush 10 mL 10 mL, Intracatheter, EVERY 8 HOURS, First dose on Thu03/24/16 at 1130 technetium Tc 99m tetrofosmin 2UD study Given 03/24/2016 1:22 PM CDT 11.71 mCi (MYOVIEW) radioisotope injection 3-42 mC i 3-42 mCi, Intravenous, EVERY 2 HOURS, First dose on Thu03/24/16 at 1130, For 2 doses, Radioisotope, supplied by and administered by Nuclear Medicine. *HW* Given 03/24/2016 11:27 AM CDT 4.02 mCi documented in this encounter Care Teams Vamp Presser Relationship Specialty Start Date End Date Anatoliy Jackson MD PCP - General 05/14/12 Heath More PCP - Internal Medicine INTERNAL MEDICINE - 01/06/14 MD Andreas ENDOCRINOLOGY, [facility] [address] [facility] [address] [place] [address] Peter Gipson PCP - Urology 04/02/15 MD Jordan [facility] [address] [facility] [address] [place] [address] documented as of this encounter
--- OUTSIDE RECORDS SUMMARY | 2022-05-02 12:38 | XMS_ITS | Encounter Summary ---
:1950 Author Organization [place] Address [address] [facility] [place] [address] Care Team Providers Name Role Phone Anatoliy Jackson MD Primary Care Provider Heath More MD Unavailable Peter Gipson MD Unavailable Reason for Visit Reason Onset Date Comments Refill Request 09/18/2015 clopidogrel and amlo dipine Encounter Details Date Type Department Care Team Description 09/18/2015 Refill [facility] Peter Aguiar Ref ill Request [facility] MD Ishan (clopidogrel and Care-[address] amlodipine) [id number] [place] [address] [place], [place] [phone] (Wo rk) [address] [phone] Social History Tobacco Use Types Packs/Day Years [...] Telephone Encounter - Karla Amin RN - 09/18/2015 10:46 AM CST Received New Rx request from [facility] Mail order pharmacy for prescription transfer. Clopidogrel and amlodipine scripts sent to [facility]. Pt has scheduled OV with Dr. Aguiar nick 10/09. Karey KELLY TESTER documented in this encounter Plan of Treatment Upcoming Encounters Date Type Specialty Care Team Description 05/15/2022 Hospital Encounter Surgery Singh Torres MD [facility] [address] [place] [address] (Wo rk) 05/15/2022 Surgery Surgery Neo Torres MD BLEPHAROPLASTY BILATERAL [facility] PTOSIS REPAIR BILATERAL [address] [place] [address] (Wo rk) 06/25/2022 Ancillary Procedure Cardiology Kirk Silver MD [address] [place] [address] (Wo rk) Scheduled Procedures Name Priority Associated Diagnoses Date/Time REPAIR, PTOSIS, BILATERAL, Dermatochalas is 05/15/2022 7:30 AM CDT WITH BILATERAL BLEPHAROPLASTY 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 REPAIR, ECTROPION, EYE, Dermatochalasis 05/15/2022 7:30 AM CDT BILATERAL 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 documented as of this encounter Visit Diagnoses Diagnosis Postsurgical percutaneous transluminal c oronary angioplasty status - Primary Status post coronary angioplasty Postsurgical percutaneous transluminal c oronary angioplasty status Coronary artery disease involving circle coronary artery of circle heart without angina pectoris Essential hypertension Unspecified essential hypertension 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
--- OUTSIDE RECORDS SUMMARY | 2022-05-02 12:38 | XMS_ITS | Encounter Summary ---
:1950 Author Organization [place] Address [address] [facility] [place] [address] Care Team Providers Name Role Phone Anatoliy Jackson MD Primary Care Provider Heath More MD Unavailable Peter Gipson MD Unavailable Reason for Visit Reason Comments Other Coronary angiogram prep inst ructions. Encounter Details Date Type Department Care Team Description 03/31/2016 Documentation Only Juan M Warren (José Miguel reed [facility] LETICIA Price angiogram p rep Heart instruction... Care-[address] [place] [address] Social History Tobacco Use Types [...] documented as of this encounter Progress Notes Dee Wilkes RN - 03/31/2016 10:51 AM CDT Patient is scheduled for a left heart cath tomorrow at [facility], on 04-01-16. Check in time is at 630 am and procedure time is at 0830 am. Patient to be NPO after midnight tonight. Patient can take his medstomorrow morning prior to the procedure with small sips of water. Patient to discuss with PMD regarding his insulin dosing. Patient is on aspirin and will continue 325 mg daily. Patient is on a med that can cause diureses. However, patient does take his Lisinopril/HCTZ in the evening. Patient will need someone available to drive him to the hospital and to drive him home. Patient should have someone available to stay with him for at least 24 hours post procedure. Reviewed prep instructions with patient today in the clinic. Patient had no questions or concerns regarding instructions. Snow KELLY 10:51 AM documented in this encounter Plan of Treatment Upcoming Encounters Date Type Specialty Care Team Description 05/15/2022 Hospital Encounter Surgery Singh Torres MD [facility] [address] [place] [address] (Wo rk) 05/15/2022 Surgery Surgery Neo Torres MD BLEPHAROPLASTY BILATERAL [facility], INTER[facility] & [facility] [place] PTOSIS REPAIR BILATERAL [address] [place] [address] (Wo rk) 06/25/2022 Ancillary Procedure Cardiology Kirk Silver MD [address] [place] [address] (Wo rk) Scheduled Procedures Name Priority Associated [...] on filedocumented in this encounter Care Teams Percussion Teacher Relationship Specialty Start Date End Date Anatoliy aJckson MD PCP - General 05/14/12 Heath More PCP - Internal Medicine INTERNAL MEDICINE - 01/06/14 MD Andreas ENDOCRINOLOGY, [facility] [address] [facility] [address] [place] [address] Peter Gipson PCP - Urology 04/02/15 MD Jordan [facility] [address] [place] [address] [address] [place], [place] [id number] documented as of this encounter
--- OUTSIDE RECORDS SUMMARY | 2022-05-02 12:38 | XMS_ITS | Encounter Summary ---
:1950 Author Organization [place] Address [address] [facility] [place] [address] Care Team Providers Name Role Phone Anatoliy Jackson MD Primary Care Provider Heath More MD Unavailable Peter Gipson MD Unavailable Reason for Visit Reason Onset Date Comments Other 03/26/2016 Stress test 03/24/16 Encounter Details Date Type Department Care Team Description 03/26/2016 Telephone [facility] Heart Paige Castro (Stress test Clinic [place] Cox RN 03/24/16) [address] [facility] [address] [place] [address] Social History Tobacco Use Types Packs/Day [...] Telephone Encounter - Brooke Valadez RN - 03/26/2016 3:07 PM CDT Late Entry. Spoke with pt 03/25/16 @ 1:30pm. Reviewed stress test results from 03/24/[address] Aguiar's recommendation. Pt set up with [facility] visit 03/31 in to discuss risks/benefits of LHC. Pt says he has NTG and has not had to use any in a long time. Reviewed when to seek ED. Telephone Encounter Info ? Author?? Note Status?? Last Update User?? Last Update Date/Time? Peter Aguiar MD?? Signed?? Peter Aguiar MD?? 03/24/2016 ??5:09 PM? Telephone Encounter ? Expand All Collapse All?? Given stress test findings (more prominent ST depression, lateral ischemia, possible worsened LVEF, needs coronary angio to assess for ostial LCX and distal LM CAD before proceeding with TURP?? documented in this encounter Plan of Treatment Upcoming Encounters Date Type Specialty Care Team Description 05/15/2022 Hospital Encounter Surgery Singh Torres MD [facility] [address] [place] [id number] (Rosalva rk) 05/15/2022 Surgery Surgery Neo Torres MD BLEPHAROPLASTY BILATERAL [facility] PTOSIS REPAIR BILATERAL [address] [place] [address] (Wo rk) 06/25/2022 Ancillary Procedure Cardiology Kirk Silver MD [address] [place] [address] (Wo rk) Scheduled Procedures Name Priority Associated [...] on filedocumented in this encounter Care Teams Cutter Down Relationship Specialty Start Date End Date Anatoliy Jackson MD PCP - General 05/14/12 Heath More PCP - Internal Medicine INTERNAL MEDICINE - 01/06/14 MD Andreas ENDOCRINOLOGY, [facility] [address] [phone] Peter Gipson PCP - Urology 04/02/15 MD Jordan [facility] [address] [place] [phone] documented as of this encounter
--- OUTSIDE RECORDS SUMMARY | 2022-05-02 12:38 | XMS_ITS | Encounter Summary ---
:1950 Author Organization [place] Address [address] [facility] [place] [address] Care Team Providers Name Role Phone Anatoliy Jackson MD Primary Care Provider Heath More MD Unavailable Peter Gipson MD Unavailable Reason for Visit Reason Onset Date Comments Erroneous encounter-disregard 12/05/2015 Encounter Details Date Type Department Care Team Description 12/05/2015 Telephone [facility] Peter Aguiar [facility] Anu Olmstead MD encounter-disregard [address] [facility] [address] [facility] [address] [place] [phone] [place] [address] Social History Tobacco Use [...] [address] [place] [address] (Wo rk) 05/15/2022 Surgery Surgery Neo Torres MD BLEPHAROPLASTY BILATERAL [facility] PTOSIS REPAIR BILATERAL [address] [place] [address] (Wo rk) 06/25/2022 Ancillary Procedure Cardiology Kirk Silver MD [address] [place] [address] (Wo rk) Scheduled Procedures Name Priority Associated [...] filedocumented in this encounter Care Teams Machine Stripper Cutter Relationship Specialty Start Date End Date Anatoliy Jackson MD PCP - General 05/14/12 Heath More PCP - Internal Medicine INTERNAL MEDICINE - 01/06/14 MD Andreas ENDOCRINOLOGY, [facility] [address] [place] [phone] Peter Gipson PCP - Urology 04/02/15 MD Jordan [facility] [address] [place] [phone] documented as of this encounter
--- OUTSIDE RECORDS SUMMARY | 2022-05-02 12:38 | XMS_ITS | Encounter Summary ---
:1950 Author Organization [place] Address [address] [facility] [place] [address] Care Team Providers Name Role Phone Anatoliy Jackson MD Primary Care Provider Heath More MD Unavailable Peter Gipson MD Unavailable Reason for Visit Reason Onset Date Comments Refill Request 12/20/2015 NTG Encounter Details Date Type Department Care Team Description 12/20/2015 Refill [facility] Tab[facility]a Refill Request (NTG) Clinic Anu Allen RN [address] [facility] [address] [place] [address] Social History Tobacco Use Types [...] this encounter Miscellaneous Notes Telephone Encounter - Tiffany Lu RN - 12/20/2015 2:52 PM CDT Pt calling for refill on NTG 0.4 mg. Pt was last seen by on 12/06/15. No medication changes. Medication e-scripted to [facility] Mail order pharmacy per pt request. documented in this encounter Plan of Treatment Upcoming Encounters Date Type Specialty Care Team Description 05/15/2022 Hospital Encounter Surgery Singh Torres MD [facility] [address] [place] [address] (Wo rk) 05/15/2022 Surgery Surgery Neo Torres MD BLEPHAROPLASTY BILATERAL [facility] PTOSIS REPAIR BILATERAL [address] [place], [place] [address] (Wo rk) 06/25/2022 Ancillary Procedure Cardiology Kirk Silver MD [address] [place], [place] [phone] (Wo rk) Scheduled Procedures Name Priority Associated [...] Coronary atherosclerosis of unspecified type of vessel, [place] or graft 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 documented in this encounter Care Teams Computer Aided Design Technician Relationship Specialty Start Date End Date Anatoliy Jackson MD PCP - General 05/14/12 Heath More PCP - Internal Medicine INTERNAL MEDICINE - 01/06/14 MD Andreas ENDOCRINOLOGY, ENDOCRINE [facility] [address] [facility] [address] [place] [phone] Peter Gipson PCP - Urology 04/02/15 MD Jordan [facility] [address] [place] [address] [address] [place], [place] [id number] documented as of this encounter
--- OUTSIDE RECORDS SUMMARY | 2022-05-02 12:38 | XMS_ITS | Encounter Summary ---
:1950 Author Organization [place] Address [address] [facility] [place] [address] Care Team Providers Name Role Phone Anatoliy Jackson MD Primary Care Provider Heath More MD Unavailable Peter Gipson MD Unavailable Reason for Visit Reason Comments Heart Problem CAD, HTN, hyperlipidemia and diabetes - Closed Specialty Diagnoses / Procedures Referred By Contact Refer red To Contact Diagnoses Coronary artery disease involving crow coronary artery of crow heart with angina pectoris (H) [facility] [address] [facility] [address] [place] [address] Referral ID Status Reason Start Date Expiration Date Visits Requ ested Visits Authorized [id number] Closed 03/25/2016 03/25/2017 1 1 Encounter Details Date Type Department Care Team Description 03/31[facility]2016 [facility] [address] [place] [id number] Abnormal cardiovascular stress test (Milagro guy Dx); [facility] Lolis Nesbitt APRN RETAIL SOLAR ADVISOR [address] [place] [id number] Coronary artery disease involving crow coronary artery of crow heart with angina pectoris (H) [facility] [place] e [address] [address] Social History Tobacco Use Types [...] Sign Reading Time Taken Comments Blood Pressure 138/50 03/31/2016 9:34 AM CDT Pulse 56 03/31/2016 9:34 AM CDT Temperature - - Respiratory Rate - - Oxygen Saturation 97% 03/31/2016 9:34 AM CDT Inhaled Oxygen Concentration - - Weight 101.2 kg (223 lb) 03/31/2016 9:34 AM CDT Height 180.3 cm (5' 11) 03/31/2016 9:34 AM CDT Body Mass Index 31.1 03/31/2016 9:34 AM CDT documented in this encounter Progress Notes Lolis Nesbitt, CALLIE RETAIL SOLAR ADVISOR - 03/31/2016 10:53 AM CDT CHIEF COMPLAINT: Abnormal stress test. HISTORY OF PRESENT ILLNESS: Mr. Anderson is a pleasant 65-year-old patient who follows with Dr. Aguiar. He has a history of coronary disease. He underwent complex circumflex stenting on 04/09/2015. He also has a history of diabetes, hypertension and dyslipidemia. Historically, he has had some mild chronic renal insufficiency. The patient had undergone an angiogram in the spring which showed circumflex disease as wellas distal right and proximal right PDA disease, although the right system was fairly modest caliber.Initially, medical therapy was attempted; however, his symptoms did not improve. He was taken to [facility] and underwent stenting of the ostial circumflex and mid circumflex and second obtuse marginal bifurcation lesion. He had quite significant improvement of symptoms after that. Earlier this year, his PSA had risen and he underwent biopsy. He tolerated a week off of Plavix without problems. The biopsy did not apparently show malignancy; however, he developed urinary retention following that and has required self-catheterization since then. He saw Dr. Aguiar on 03/18. At that t fabian there was discussion about potentially undergoing a TURP versus subtotal prostatectomy. In preparation for potential surgery, Dr. Aguiar opted to send the patient for a nuclear stress test which was completed on 11/22. Results showed a small area of ischemia in the inferolateral apex and inferolateral apical segment. There was a small to moderate area of ischemia in the lateral mid ventricle to the base in association with a small inferior/inferolateral basal infarct. His resting EKG showed nonspecific ST abnormalities. Stress EKG showed very prominent ST depression measuring up to 4 mm in the lateral and inferior leads with prominent ST elevation in AVR as well as V1. The results of this testwere reviewed by Dr. Aguiar. Because of concerns for ostial left circumflex and distal left main coronary disease, it was suggested he undergo angiogram before proceeding with his prostate surgery. Mr. Anderson comes in to the clinic today to talk about his test results and also to review the angiogram procedure itself. He really has not been having any issues with symptoms. He is denying any significant shortness of breath with exertion, though he does have a certain threshold after which he mayexperience some mild breathing difficulty. For example, he tells me he was recently at a wedding anddancing with his granddaughter when he noticed some mild difficulty with breathing but certainly nothing alarming. He really does not describe any chest pain symptoms. Beyond that, he denies any palpitations, orthopnea or paroxysmal nocturnal dyspnea. PHYSICAL EXAMINATION: GENERAL: On exam, this is a well-developed, well-nourished male who appears his stated age. He is cooperative and appropriate. VITAL SIGNS: Stable. NEUROLOGIC: Intact. HEENT: Normocephalic, atraumatic without tenderness or involuntary movements. Face appears symmetric. Visual diana are full. EOMs intact. Conjunctivae clear. Oral mucosa is pink and moist. NECK: Supple with full range of motion, trachea appears midline, no JVD, no carotid bruit. CARDIOVASCULAR: S1 and S2, regular rate and rhythm, no murmur, rub, gallop. LUNGS: Chest expansion appears symmetric. Breath sounds are clear. ABDOMEN: Soft, nontender, bowel sounds present. EXTREMITIES: Warm and dry. He has some stasis pigmentation changes to the lower extremities. Pulses below the femoral arteries are diminished. IMPRESSION AND PLAN: 1. Mr. Anderson is a 65-year-old with known coronary disease and stenting of the circumflex artery, now with stress testing which identifies possible progressive coronary disease. I did talk with Dr. Aguiar about the case. His concern is for ostial circumflex disease extending into the left main coronary artery. If intervention is necessary given that the patient has elective upcoming surgery, Dr. Aguiar suggested perhaps a Synergy drug-eluting stent in which case the patient would not need to be on Plavix for an entire year but could potentially come off after 3 months or so. Beyond that, I talked to the patient about the procedure. He is aware of the indications, the risks and the benefits. Risks include but are not limited to bleeding, infection, contrast nephropathy, vascular perforation, heart attack, stroke or . He verbalizes understanding of this and is willing to proceed. Dr. Aguiar is not in the [facility] for a few weeks and hence we have opted to undergo the procedure tomorrow at [facility]. We will get his pre procedure instructions from the nurses here at the [facility]. He is aware if there are any questions or concerns, he can always contact our office. Beyond that, thank you for allowing me to participate in the care of this pat ient. LOLIS NESBITT APRN CNP MT: VD Name: NIKITA ANDERSON Account: [id number] : 1950 Service Date: 03/31/2016 Document: [id number] Lolis Nesbitt APRN CNP - 03/31/2016 10:45 AM CDT HPI and Plan: See dictation 10:45 AM [id number] No orders of the defined types were placed in this encounter. No orders of the defined types were placed in this encounter. There are no discontinued medications. Encounter Diagnoses Name Primary? Coronary artery disease ??? Abnormal cardiovascular stress test Yes CURRENT MEDICATIONS: Current Outpatient Prescriptions Medication Sig [...] Smokeless tobacco: Not on file ??? Alcohol Use: 0.0 oz/week 0 Standard drinks or equivalent per week Comment: beer and wine, every couple days ??? Drug Use: No ??? Sexual Activity: Not on file Other Topics Concern ??? Caffeine Concern No 2 cups daily ??? Sleep Concern No ??? Weight Concern No ??? Special Diet Yes counts carbs, diabetic diet ??? Exercise Yes not much Social History Narrative Review of Systems: Skin: Negative Eyes: Positive for glasses ENT: Positive for postnasal drainage Respiratory: Negative Cardiovascular: Negative Gastroenterology: Negative Genitourinary: Positive for prostate problem Musculoskeletal: Positive for arthritis Neurologic: numbness or tingling of feet;numbness or tingling of hands feet at night Psychiatric: Negative Heme/Lymph/Imm: Positive for easy bruising Endocrine: Positive for diabetes Physical Exam: Vitals: BP 138/50 mmHg Pulse 56 Ht 1.803 m (5' 11) Wt 101.152 kg (223 lb) BMI 31.12 kg/m2 SpO2 97% Constitutional: cooperative, alert and oriented, well developed, [...] full and equal bilaterally;JVP normal;no carotid bruit Chest: clear to auscultation Cardiac: regular rhythm, normal S1/S2, no S3 or S4, apical impulse not displaced, no murmurs, gallops or rubs Abdomen: abdomen soft;BS normoactive Vascular: pulses below the femoral arteries are diminished Extremities and Back: no deformities, clubbing, cyanosis, erythema observed;no edema stasis pigmentation Neurological: affect appropriate, oriented to time, person and place;no gross motor deficits CC Anatoliy Jackson MD [facility] [address] [place] [address] documented in this encounter Plan of Treatment Upcoming Encounters Date Type Specialty Care Team Description 05/15/2022 Hospital Encounter Surgery Singh Torres MD [facility] [address] [place] [id number] (Wo rk) 05/15/2022 Surgery Surgery Neo Torres MD BLEPHAROPLASTY BILATERAL [facility] PTOSIS REPAIR BILATERAL [address] [place] [id number] (Wo rk) 06/25/2022 Ancillary Procedure Cardiology Li, Huagui, MD [address] [place] [id number] (Wo rk) Scheduled Procedures Name Priority Associated Diagnoses Date/Time REPAIR, PTOSIS, BILATERAL, Dermatochalas is 05/15/2022 7:30 AM CDT WITH BILATERAL BLEPHAROPLASTY 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 Selective left and right coronary ang iography. 2. Left heart catheterization. 3. Left ventriculography 4. 4Fr RFA Sheath removed and manual pre ssure held to secure hemostasis PHYSICIANS: 1. Attending Interventional Cardiology S taff: MD Guero 2. Interventional Form Building Supervisor: Yaakov morse MD INDICATION: Nikita Anderson is a 65 year old male wit h known coronary artery disease s/p PCI of ostial LCX, OM and dL CX a year ago, presents with abnormal stress test which was performed as part of pre-op assessment. CORONARY ANGIOGRAM: 1. Both coronary arteries arise from the ir respective cusps. 2. Right dominant. 3. LM has mild disease (<10%). 4. LAD is a type III vessel and gives ri se to septal perforators, D1 and D2. ??There is mild (30%) LAD diseas e. ?? 5. LCX gives rise to OM1 and OM2 vessels . It also supplies PL branches. ?? There are widely patent cassi nts in ostial circ, OM and distal circ. 6. RCA gives rise to PL branches and sup plies PDA. There is a 50-60% stenosis in proc rPDA unchanged from las t angiogram LEFT HEART CATHETERIZATION: 1. LVEDP 14 mmHg. 2. Left ventriculogram showed mild globa l hypokinesis, LVEF 45-50% and no evidence of mitral regurgitation. 3. No gradient across the aortic valve o n pull back. HEMODYNAMICS: BSA 2.23 1. HR 51 bpm 2. BP 128/53 mmHg DESCRIPTION: 1. Sterile prep and procedure. 2. Location: right common femoral artery 3. Access: Local anesthetic with lidocai ne. ??A standard (18 g) needle was used to establish vascular access us ing a modified Seldinger technique. 4. Sheath: 4Fr sheath. 5. Catheters: 4Fr 3DRC, 4Fr JL-4.5, 4Fr angled pigtail 6. Fluoroscopy time of 2.4 min. 7. Estimated blood loss of <5 mL. 8. See below for procedure details. MEDICATIONS: 1. Contrast 86 mL IV. 2. Conscious sedation with fentanyl and midazolam as directed by the attending rubber belt splicer. 3. Nitroglycerin intracoronary. COMPLICATIONS: 1. None SUMMARY: 1. Abnormal stress test without symptoms of angina, and no angiographic evidence of obstructive cor onary artery disease. 2. Moderate rPDA stenosis, unchanged fro m prior, without angina 3. Left ventricle with LVEDP of 14 mmHg, visually estimated LVEF of 45-50%, no evidence of mitral regurgitat ion and no evidence of aortic stenosis. 4. 4Fr RFA Sheath removed and manual pre ssure held to secure hemostasis PLAN: 1. Aspirin 81 mg po daily lifelong. 2. Continue Plavix 75 mg po daily until clinic follow up 3. Bedrest per protocol. 4. Discharge today per protocol 5. Continued medical management and life style modification for cardiovascular risk factor optimization. 6. Medical management for rPDA disease The attending interventional cardiologis t was present for the entire procedure. Grayson Pedro MD,MPH [phone] Interventional Form Building Supervisor SEA GIBSON MD Procedure Note Sea Gibson MD - 04/01/2016Fo rmatting of this note might be different from the original. PROCEDURES PERFORMED: 1. Selective left and right coronary ang iography. 2. Left heart catheterization. 3. Left ventriculography 4. 4Fr RFA Sheath removed and manual pre ssure held to secure hemostasis PHYSICIANS: 1. Attending Interventional Cardiology S taff: MD Guero 2. Interventional Form Building Supervisor: Yaakov morse MD INDICATION: Nikita Anderson is a 65 year old male wit h known coronary artery disease s/p PCI of ostial LCX, OM and dL CX a year ago, presents with abnormal stress test which was performed as part of pre-op assessment. CORONARY ANGIOGRAM: 1. Both coronary arteries arise from the ir respective cusps. 2. Right dominant. 3. LM has mild disease (<10%). 4. LAD is a type III vessel and gives ri se to septal perforators, D1 and D2. There is mild (30%) LAD disease. 5. LCX gives rise to OM1 and OM2 vessels . It also supplies PL branches. There are widely patent stents in ostial circ, OM and distal circ. 6. RCA gives rise to PL branches and sup plies PDA. There is a 50-60% stenosis in proc rPDA unchanged from las t angiogram LEFT HEART CATHETERIZATION: 1. LVEDP 14 mmHg. 2. Left ventriculogram showed mild globa l hypokinesis, LVEF 45-50% and no evidence of mitral regurgitation. 3. No gradient across the aortic valve o n pull back. HEMODYNAMICS: BSA 2.23 1. HR 51 bpm 2. BP 128/53 mmHg DESCRIPTION: 1. Sterile prep and procedure. 2. Location: right common femoral artery 3. Access: Local anesthetic with lidocai ne. A standard (18 g) needle was used to establish vascular access us ing a modified Seldinger technique. 4. Sheath: 4Fr sheath. 5. Catheters: 4Fr 3DRC, 4Fr JL-4.5, 4Fr angled pigtail 6. Fluoroscopy time of 2.4 min. 7. Estimated blood loss of <5 mL. 8. See below for procedure details. MEDICATIONS: 1. Contrast 86 mL IV. 2. Conscious sedation with fentanyl and midazolam as directed by the attending rubber belt splicer. 3. Nitroglycerin intracoronary. COMPLICATIONS: 1. None SUMMARY: 1. Abnormal stress test without symptoms of angina, and no angiographic evidence of obstructive cor onary artery disease. 2. Moderate rPDA stenosis, unchanged fro m prior, without angina 3. Left ventricle with LVEDP of 14 mmHg, visually estimated LVEF of 45-50%, no evidence of mitral regurgitat ion and no evidence of aortic stenosis. 4. 4Fr RFA Sheath removed and manual pre ssure held to secure hemostasis PLAN: 1. Aspirin 81 mg po daily lifelong. 2. Continue Plavix 75 mg po daily until clinic follow up 3. Bedrest per protocol. 4. Discharge today per protocol 5. Continued medical management and life style modification for cardiovascular risk factor optimization. 6. Medical management for rPDA disease The attending interventional cardiologis t was present for the entire procedure. 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
--- OUTSIDE RECORDS SUMMARY | 2022-05-02 12:38 | XMS_ITS | Encounter Summary ---
:1950 Author Organization [place] Address [address] [facility] [place] [address] Care Team Providers Name Role Phone Anatoliy Jackson MD Primary Care Provider Heath More MD Unavailable Peter Gipson MD Unavailable Encounter Details Date Type Department Care Team Description 04/01/2016 Hospital Encounter [facility] Peter Aguiar post coronary angiogram (Primary Dx); [facility] MD Ishan Abnormal cardiovascular stress test; [address] Atherosclerosis of [place] co ronary artery of [place] heart without angina pectoris [I25.10] [address] [place] [address] [id number] Social History Tobacco Use Types Packs/Day Years [...] Sign Reading Time Taken Comments Blood Pressure 125/57 04/01/2016 11:15 AM CDT Pulse 47 04/01/2016 6:52 AM CDT Temperature 36.4 ??C (97.5 ??F) 04/01/2016 6:52 AM CDT Respiratory Rate 16 04/01/2016 11:15 AM CDT Oxygen Saturation 99% 04/01/2016 11:15 AM CDT Inhaled Oxygen Concentration - - Weight 99.1 kg (218 lb 6.4 oz) 04/01/2016 6:52 AM CDT Height 180.3 cm (5' 11) 04/01/2016 6:52 AM CDT Body Mass Index 30.46 04/01/2016 6:52 AM CDT documented in this encounter Discharge Instructions Discharge InstructionsDaniel Bernal RN - 04/01/2016 9:49 AM CDT Going Home after Coronary Angioplasty or Stent Placement Name: Nikita Anderson Today's Date: April 01, 2016 For 24 hours: ??? Have an adult stay with you for 24 hours. ??? Relax and take it easy. ??? Drink plenty of fluids. ??? You may eat your normal diet, unless your doctor tells you otherwise. ??? Do NOT make any important or legal decisions. ??? Do NOT drive or operate machines at home or at work. ??? Do NOT drink alcohol. Do NOT smoke. Medicines: ??? If you have begun Plavix (clopidogrel), Effient (prasugrel), or Brilinta (ticagrelor), do not stop taking it until you talk to your heart doctor (concrete placement equipment operator). ??? If you are on metformin (Glucophage), do not restart it until you have blood tests (within 2 to3 days after discharge). When your doctor tells you it is safe, you may restart the metformin. ??? If you have stopped any other medicines, check with your nurse or provider about when to restart them. Care of groin site: ??? Remove the Band-Aid after 24 hours. If there is minor oozing, apply another Band-aid and removeit after 12 hours. ??? Do NOT take a bath, or use a hot tub or pool for at least 3 days. You may shower. ??? It is normal to have a small bruise or lump at the site. ??? Do not scrub the site. ??? Do not use lotion or powder near the puncture site for 3 days. ??? For the first 2 days: Do not stoop or squat. When you cough, sneeze or move your bowels, hold your hand over the puncture site and press gently. ??? Do not lift more than 10 pounds for at least 3 to 5 days. ??? For 2 days, do NOT have sex or do any heavy exercise. If you start bleeding from the site in your groin: Lie down flat and press firmly on the site. Call your physician immediately, or, come to the emergency room. Call 911 right away if you have bleeding that is heavy or does not stop. Call your doctor if: ??? You have a large or growing hard lump around the site. ??? The site is red, swollen, hot or tender. ??? Blood or fluid is draining from the site. ??? You have chills or a fever greater than 101??F (38??C). ??? Your leg or arm turns bluish, feels numb or cool. ??? You have hives, a rash or unusual itching. ADDITIONAL INSTRUCTIONS: contrast instructions provided [facility]: [phone] (7 days a week) Marking Machine Tender colorectal surgeon (24 hours per day) at [facility]: [phone] (ask for Marking Machine Tender colorectal surgeon) _ documented in this encounter Medications at Time [...] by mouth daily Coronary artery disease involving [place] coronary artery of [place] heart without angina pectoris, Essential hypertension aspirin 325 MG tablet Take 81 mg by mouth 0 02/18/2021 daily carvedilol (COREG) 12.5 Take 1 tablet (12.5 180 tablet 3 04/201609/02/2016 MG tabletIndications: mg) by mouth 2 times Coronary artery disease daily (with meals) involving [place] coronary artery of [place] heart without angina pectoris cloNIDine (CATAPRES) 0.1 Take 0.1 mg by mouth 0 04/18/2021 MG tablet 2 times daily clopidogrel (PLAVIX) 75 Take 1 tablet (75 90 tablet 2 03/1809/02/2016 MG tabletIndications: mg) by mouth daily Postsurgical percutaneous transluminal coronary angioplasty status, Status post coronary angioplasty, Coronary artery disease involving [place] coronary artery of [place] heart without angina pectoris finasteride (PROSCAR) 5 [...] as of this encounter Progress Notes Laureen Maxwell RN - 04/01/2016 12:13 PM CDT 1200 Discharged patient per w/c with dedicated truck driver. Daniel Bernal RN - 04/01/2016 10:35 AM CDT Pt resting comfortably post heart cath in care suites 18 bed. Right groin dry and intact with no bleeding, denies pain. Instructions for home care given to pt both written and verbally. Grayson Pedro MD - 04/01/2016 9:18 AM CDT Patent stents in ostial circ, OM and distal circ 50-60% stenosis in proc rPDA unchanged from last angiogram Mild (30%) LAD disease LVEDP 14mmHg EF 45-50%, no MR no 4Fr RFA Sheath removed and manual pressure held to secure hemostasis No complications Grayson Pedro MD,MPH [phone] Interventional Marking Machine Tender documented in this encounter Plan of Treatment Upcoming Encounters Date Type Specialty Care Team Description 05/15/2022 Hospital Encounter Surgery Singh Torres MD [facility] [address] [place] [address] (Wo rk) 05/15/2022 Surgery Surgery Neo Torres MD BLEPHAROPLASTY BILATERAL [place] [facility], [facility] PTOSIS REPAIR BILATERAL [address] [place] [address] (Wo rk) 06/25/2022 Ancillary Procedure Cardiology Kirk Silver MD [address] [place] [address] (Wo rk) Scheduled Procedures Name Priority Associated [...] Name Priority Date/Time Associated Diagnosis Comme nts CORONARY ANGIOGRAPHY Routine 04/01/2016 9:14 Abnormal Resu lts for this ADULT ORDER AM CDT cardiovascular stress proced ure are in test the results section. EKG 12-LEAD, TRACING STAT 04/01/2016 7:09 Resu lts for this ONLY AM CDT procedure are i n the results section. BASIC METABOLIC STAT 04/01/2016 7:00 Abnormal Results f or this PANEL AM CDT cardiovascular stress proced ure are in test the results section. documented in this encounter Results Cardiac Cath: Coronary Angiography [...] Cardiology S taff: MD Guero 2. Interventional Marking Machine Tender: Yaakov morse MD INDICATION: Nikita Anderson is [...] and midazolam as directed by the attending concrete placement equipment operator. 3. Nitroglycerin intracoronary. COMPLICATIONS: 1. None SUMMARY: [...] for the entire procedure. Grayson Pedro MD,MPH [phone] Interventional Marking Machine Tender SEA GIBSON MD Procedure Note Sea Gibson MD - 04/01/2016Fo rmatting of this note might be different from the original. PROCEDURES PERFORMED: 1. Selective left and right coronary ang iography. 2. Left heart catheterization. 3. Left ventriculography 4. 4Fr RFA Sheath removed and manual pre ssure held to secure hemostasis PHYSICIANS: 1. Attending Interventional Cardiology S taff: MD Guero 2. Interventional Marking Machine Tender: Yaakov morse MD INDICATION: Nikita Anderson is [...] and midazolam as directed by the attending concrete placement equipment operator. 3. Nitroglycerin intracoronary. COMPLICATIONS: 1. None SUMMARY: [...] for the entire procedure. Grayson Pedro MD,MPH [phone] Interventional Marking Machine Tender SEA GIBSON MD Debra Nesbitt BUDGET MANAGER RESTORER [employer] CV CARDIAC CATH ORDERAB LES EKG 12-lead, tracing only (04/01/2016 7:09 AM CDT) [facility] gist Method Time Signature Interpretation ECG Click View RADIOLOGY Image link RESULTS to view waveform and result Specimen (Source) Anatomical Collection Method Collection Time Re ceived Time Location / / Volume Laterality 04/01/2016 7:09 AM CDT Peter Aguiar MD ECG ORDERABLES Performing Organization Address City/State/ZIP Code Phon e Number RADIOLOGY RESULTS (ABNORMAL) Basic metabolic panel (04/01/2016 7:00 AM CDT) Analysis Performed At [facility] logist Time Signature Sodium 141 133 - 144 [place] mmol/L [facility] Potassium 5.0 3.4 - 5.3 [place] mmol/L [facility] Chloride 111 (H) 94 - 109 [facility]L [facility] Carbon Dioxide 21 20 - 32 [facility] mmol/L [facility] Anion Gap 9 3 - 14 [place] mmol/L [facility] Glucose 237 (H) 70 - 99 [place] mg/dL [facility] Urea Nitrogen 53 (H) 7 - 30 [place] mg/dL [facility] Creatinine 1.44 (H) 0.66 - [place] 1.25 mg/dL [facility] GFR Estimate 49 (L) >60 [place] mL/min/1.[address] Comment: Non GFR Calc GFR Estimate If Black 59 (L) >60 mL/min/1.7m2 [facility] Comment: GFR Calc Calcium 8.5 8.5 - 10.1 mg/dL [facility] Specimen Anatomical Collection Method Collection Time Receive d Time (Source) Location / / Volume Laterality Blood specimen 04/01/2016 7:00 AM 016 7:11 (specimen) CDT AM CDT Peter Aguiar MD LAB - BLOOD ORDERABLES Performing Organization Address City/State/ZIP Code Phon e Number M [facility] [address] [place] [address] [phone] [facility] [address] [place] [address], [place] [phone] documented in this encounter Visit Diagnoses Diagnosis Status post coronary angiogram - Primary Other postprocedural status Abnormal cardiovascular stress test Other nonspecific abnormal cardiovascula r system function study Atherosclerosis of [place] coronary arter y of [place] heart without angina pectoris [I25.10] 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 Start at 0700 for inpatients. IF PATIENT IS RECEIVING RENAL DIALYSIS, RN to reduce rate of 0.9 % sodium chloride IV solution to 10 mL /hour (TKO) IV infusion to prevent fluid overload., Cardiac Pre-procedure, Starting on Thu04/01/16 at 0700, Until Thu04/01/16 at 0938 0.9% sodium chloride infusion Rate/Dose Verify 04/01/2016 9:30 AM CDT 75 mL/hr at 75 mL/hr, Intravenous, CONTINUOUS, Administer over 4 Hours, or until patient is ambulating. IF PATIENT IS RECEIVING RENAL DIALYSIS, RN to reduce rate of 0.9% sodium chloride IV solution to 10 mL /hour (TKO) to prevent fluid overload, Cardiac Post-procedure, Starting on Thu04/01/16 at 0945, Until Thu04/01/16 at 1414 fentaNYL Citrate (PF) (SUBLIMAZE) injection Given 04/01/2016 8:45 AM CDT 50 mcg 25-50 mcg 25-50 mcg, Intravenous, EVERY 2 MIN PRN, moderate to severe pain, other, when verbally ordered by prescriber during the procedure., Starting on Thu04/01/16 at 0747, Doses can be exceeded under direct oversight of the patient by physician., Cardiac Intra-procedure iopamidol (ISOVUE-370) 76% solution 83 m L Given 04/01/2016 9:30 AM CDT 83 mLs 83 mL, INTRA-ARTERIAL, ONCE, On Thu04/01/16 at 0930, For 1 dose lidocaine (PF) (XYLOCAINE) 1 % Given by Other 04/01/2016 8:48 AM CDT 100 mg injection 10-100 mg 10-100 mg (1-10 mL), Subcutaneous, ONCE PRN, For local anesthesia for groin puncture as verbally ordered by prescriber during the procedure., Starting on Thu04/01/16 at 0747, For 1 dose, The provider administers the medication. Dose may be into smaller doses for administration., Cardiac Intra-procedure midazolam (VERSED) injection 0.5-2 mg Given 04/01/2016 8:45 AM CDT 1 mg 0.5-2 mg, Intravenous, EVERY 2 MIN PRN, other, when verbally ordered by prescriber during the procedure., Starting on Thu04/01/16 at 0747, Doses can be exceeded under direct oversight of the patient by physician., Cardiac Intra-procedure nitroglycerin Cmpd syr inj, 10ml Given by Other 04/01/2016 8:53 AM CD T 150 mcg 100-200 mcg 100-200 mcg, INTRACORONARY, EVERY 1 MIN PRN, when verbally ordered by prescriber during procedure, Starting on Thu04/01/16 at 0747, Prescriber will infuse each dose, Cardiac Intra-procedure documented in this encounter Active and Recently Administered Medications Times are shown in CDT. Scheduled Medication Order 03/30/2016 03/31/2016 04/01/2016 iopamidol (ISOVUE-370) 76% solution 83 mL (COMPLETED) 0930 (Given - Provider: Kennedi Boone) 83 mL, INTRA-ARTERIAL, ONCE, Thu04/01/16 at 0930, For 1 dose Continuous Medication Order 03/30/2016 03/31/2016 04/01/2016 0.9% sodium chloride infusion (CANCELED) 0700 (Rate/Dose Verify - Provider: Daniel Bernal RN - Comment: started at 7) at 150 mL/hr, Intravenous, CONTINUOUS, 1 50 mL/hr IV for 2 hours prior to cardiac veterinarian laboratory animal care procedure, then decrease to 75 mL/hr to run throughout the procedure. Start at 0700 for inpatients. IF PATIENT I S RECEIVING RENAL DIALYSIS, RN to reduce rate of 0.9 % sodium chloride IV solution to 10 mL /hour (TKO) IV infusion to prevent fluid overload., Cardiac Pre-procedure, Starting Thu04/01/16 at 0700, Until Thu04/01/16 at 0938 0.9% sodium chloride infusion (CANCELED) 0930 (Rate/Dose Verify - Provider: Daniel Bernal RN) at 75 mL/hr, Intravenous, CONTINUOUS, fo r 4 Hours, or until patient is ambulating. IF PATIENT IS RECEIVING RENAL DIALYSIS, RN to reduce rate of 0.9% sodium chloride IV solution to 10 mL /hour (TKO) to p revent fluid overload, Cardiac Post-proc edure, Starting Thu04/01/16 at 0945, Until Thu04/01/16 at 1414 PRN Medication Order 03/30/2016 03/31/2016 04/01/2016 fentaNYL Citrate (PF) (SUBLIMAZE) injection 25-50 mcg (CANCELED) 0845 (Given - Provider: Adry Castro RN) 25-50 mcg, Intravenous, EVERY 2 MIN PRN, Starting Thu04/01/16 at 0747, moderate to severe pain, other, when verbally ordered by prescriber during the procedure., Doses can be exceeded under direct overs ight of the patient by physician., Cardiac Intra-procedure lidocaine (PF) (XYLOCAINE) 1 % injection 10-100 mg (COMPLETED) 0848 (Given by Other - Provider: Adry Castro, LETICIA) 10-100 mg (1-10 mL), Subcutaneous, ONCE PRN, For local anesthesia for groin puncture as verbally ordered by prescriber during the procedure., Starting Thu04/01/16 at 0747, For 1 dose, The provider admin isters the medication. Dose may be separ ated into smaller doses for administration., Cardiac Intra-procedure midazolam (VERSED) injection 0.5-2 mg (CANCELED) 0845 (Given - Provider: Adry Castro, RN) 0.5-2 mg, Intravenous, EVERY 2 MIN PRN, Starting Thu04/01/16 at 0747, other, when verbally ordered by prescriber during the procedure., Doses can be exceeded under direct oversight of the patient by physician., Cardiac Intra-procedure nitroglycerin Cmpd syr inj, 10ml 100-200 mcg (CANCELED) 0853 (Given by Other - Provider: Adry Castro, LETICIA) 100-200 mcg, INTRACORONARY, EVERY 1 MIN PRN, when verbally ordered by prescriber during procedure, Starting Thu04/01/16 at 0747, Prescriber will infuse each dose, Cardiac Intra-procedure documented in this encounter Care Teams Housekeeping Attendant Relationship Specialty Start Date End Date Anatoliy Jackson MD PCP - General 05/14/12 Heath More PCP - Internal Medicine INTERNAL MEDICINE - 01/06/14 MD Andreas ENDOCRINOLOGY, [facility] [address] [facility] [address] [place] [phone] Peter Gipson PCP - Urology 04/02/15 MD Jordan [facility] [address] [place] [address] [address] [place] [address] documented as of this encounter
--- OUTSIDE RECORDS SUMMARY | 2022-05-02 12:38 | XMS_ITS | Encounter Summary ---
:1950 Author Organization [place] Address [address] [facility] [place] [address] Care Team Providers Name Role Phone Anatoliy Jackson MD Primary Care Provider Heath More MD Unavailable Peter Gipson MD Unavailable Reason for Visit Reason Onset Date Comments Results 03/31/2016 pre- cath labs Encounter Details Date Type Department Care Team Description 03/31/2016 Telephone [facility] Dee Wilkes R esults (pre- cath labs) Health Heart RN [facility]-[address] [address] Social History Tobacco Use Types [...] this encounter Miscellaneous Notes Telephone Encounter - Dee Wilkes RN - 03/31/2016 1:36 PM CDT Component Latest Ref Rng 03/31/2016 Sodium 133 - 144 mmol/L 136 Potassium 3.4 - 5.3 mmol/L 5.6 (H) Chloride 94 - 109 mmol/L 106 Carbon Dioxide 20 - 32 mmol/L 24 Anion Gap 3 - 14 mmol/L 6 Glucose 70 - 99 mg/dL 362 (H) Urea Nitrogen 7 - 30 mg/dL 50 (H) Creatinine 0.66 - 1.25 mg/dL 1.36 (H) GFR Estimate >60 mL/min/1.7m2 52 (L) GFR Estimate If Black >60 mL/min/1.7m2 63 Calcium 8.5 - 10.1 mg/dL 8.3 (L) Hemoglobin 13.3 - 17.7 g/dL 11.3 (L) Platelet Count 150 - 450 10e9/L 168 INR 0.86 - 1.14 1.08 PTT 22 - 37 sec 27 Debra Nesbitt CANE FURNITURE MAKER reviewed patient's pre cath labs. K is 5.6 with some renal insufficiency. Patient to hold his Lisinopril/HCTZ tonight and watch his K intake. Repeat BMP tomorrow on admit, prior to the cath procedure. Called and spoke to patient, reviewed lab results and gave him Debra's recommendations. I provided patient with education on how to lower his K intake for today. Patient is aware he will have a BMP tomorrow. Patient had no questions. TGaherb RN 1:42 PM documented in this encounter Plan of Treatment Upcoming Encounters Date Type Specialty Care Team Description 05/15/2022 Hospital Encounter Surgery Singh Torres MD [facility] [address] [place] [id number] (Wo rk) 05/15/2022 Surgery Surgery Neo Torres MD BLEPHAROPLASTY BILATERAL [facility], [facility] [place] PTOSIS REPAIR BILATERAL [address] [place] [id number] (Wo rk) 06/25/2022 Ancillary Procedure Cardiology Krik Silver MD [address] [place] [id number] (Wo rk) Scheduled Procedures Name Priority Associated [...] on filedocumented in this encounter Care Teams Renal Dietitian Relationship Specialty Start Date End Date Anatoliy Jackson MD PCP - General 05/14/12 Heath More PCP - Internal Medicine INTERNAL MEDICINE - 01/06/14 MD Andreas ENDOCRINOLOGY, [facility] [address] [place] [phone] Peter Gipson PCP - Urology 04/02/15 MD Jordan [facility] [address] [place] [phone] documented as of this encounter
--- OUTSIDE RECORDS SUMMARY | 2022-05-02 12:38 | XMS_ITS | Encounter Summary ---
:1950 Author Organization [place] Address [address] [facility] [place] [address] Care Team Providers Name Role Phone Anatoliy Jackson MD Primary Care Provider Heath More MD Unavailable Peter Gipson MD Unavailable Encounter Details Date Type Department Care Team Description 12/05/2015 [facility] Tiffany Gutierrez RN <100 (Primary Dx) [address] [facility] [address] [place] [address] Social History Tobacco Use Types [...] [address] [place] [address] (Wo rk) 05/15/2022 Surgery Surgery Neo Torres MD BLEPHAROPLASTY BILATERAL [facility], INTERNAL & [facility]GE[facility] [place] PTOSIS REPAIR BILATERAL [address] [place] [address] (Wo rk) 06/25/2022 Ancillary Procedure Cardiology Kirk Silver MD [address] [place] [phone] (Wo rk) Scheduled Procedures Name Priority Associated Diagnoses Date/Time REPAIR, PTOSIS, BILATERAL, Dermatochalas is 05/15/2022 7:30 AM CDT WITH BILATERAL BLEPHAROPLASTY 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 REPAIR, ECTROPION, EYE, Dermatochalasis 05/15/2022 7:30 AM CDT BILATERAL 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 documented as of this encounter Results (ABNORMAL) Lipid Profile (12/06/2015 8:12 AM CDT) P athologist Signature Cholesterol 113 <200 mg/dL [facility] Triglycerides 154 (H) <150 mg/dL [facility] Comment: Borderline high: ??150-199 mg/dl High: ? 200-499 mg/dl Very high: ? >499 mg/dl Fasting specimen HDL Cholesterol 33 (L) >39 mg/dL [facility] LDL Cholesterol Calculated 49 <100 mg/dL [facility] Comment: Desirable: <100 mg/dl Non HDL Cholesterol 80 <130 mg/dL [facility] Specimen Anatomical Collection Method Collection Time Receive d Time (Source) Location / / Volume Laterality Blood specimen 12/06/2015 8:12 AM 016 8:13 (specimen) CDT AM CDT Peter Aguiar MD LAB - BLOOD ORDERABLES Performing Organization Address City/State/ZIP Code Phon e Number M [facility] [address] [place], [place] [address] [facility] [address] [place], [place] [address] [facility] [phone] documented in this encounter Visit Diagnoses Diagnosis Hyperlipidemia LDL goal <100 - Primary Other and unspecified hyperlipidemia 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
--- OUTSIDE RECORDS SUMMARY | 2022-05-02 12:38 | XMS_ITS | Encounter Summary ---
:1950 Author Organization [place] Address [address] [facility] [place] [address] Care Team Providers Name Role Phone Anatoliy Jackson MD Primary Care Provider Heath More MD Unavailable Peter Gipson MD Unavailable Reason for Visit Reason Onset Date Comments Other 03/31/2016 [facility] 04/01/16 Encounter Details Date Type Department Care Team Description 03/31/2016 Telephone [facility] Brooke Castro , Other ([facility] 04/01/16) Clinic [place] [facility] [address] [facility] [address] [place] [address] Social History Tobacco Use Types Packs/Day [...] Telephone Encounter - Brooke Castro RN - 03/31/2016 3:39 PM CDT Received orders for LHC in Team 1 inbox. It looks like pt was in BV for SERAFIN visit and cath orders have been entered by Dee (Aug)LETICIA. Left vm with Aug to verify the prep has been reviewed with the ptas well, otherwise I will call pt to discuss. documented in this encounter Plan of Treatment Upcoming Encounters Date Type Specialty Care Team Description 05/15/2022 Hospital Encounter Surgery Singh Torres MD [facility] [address] [place], [place] [phone] (Wo rk) 05/15/2022 Surgery Surgery Neo Torres MD BLEPHAROPLASTY BILATERAL [place] [facility] PTOSIS REPAIR BILATERAL [address] [place] [phone] (Wo rk) 06/25/2022 Ancillary Procedure Cardiology Kirk Silver MD [address] [place] [phone] (Wo rk) Scheduled Procedures Name Priority Associated [...] on filedocumented in this encounter Care Teams Groundskeeper Porter Relationship Specialty Start Date End Date Anatoliy Jackson MD PCP - General 05/14/12 Heath More PCP - Internal Medicine INTERNAL MEDICINE - 01/06/14 MD Andreas [facility], [facility] [address] [place] [phone] Peter Gipson PCP - Urology 04/02/15 MD Jordan [facility] [address] [place] [address] documented as of this encounter
--- OUTSIDE RECORDS SUMMARY | 2022-05-02 12:38 | XMS_ITS | Encounter Summary ---
:1950 Author Organization [place] Address [address] [facility] [place] [address] Care Team Providers Name Role Phone Anatoliy Jackson MD Primary Care Provider Heath More MD Unavailable Peter Gipson MD Unavailable Reason for Visit Reason Onset Date Comments Refill Request 09/18/2015 carvedilol (change i n pharmacy to [facility] - mail order) Encounter Details Date Type Department Care Team Description 09/18/2015 Refill [facility] Heart Ariella Rivas R N Refill Request [facility] [place] (carvedilol (change in [address] [facility] to [facility] - mail [address] order)) [place] [address] Social History Tobacco Use [...] [address] [place] [id number] (Wo rk) 05/15/2022 Surgery Surgery Neo Torres MD BLEPHAROPLASTY BILATERAL [facility] PTOSIS REPAIR BILATERAL [address] [place] [id number] (Wo rk) 06/25/2022 Ancillary Procedure Cardiology Kirk Silver MD [address] [place] [id number] (Wo rk) Scheduled Procedures Name Priority Associated Diagnoses Date/Time REPAIR, PTOSIS, BILATERAL, Dermatochalas is 05/15/2022 7:30 AM CDT WITH BILATERAL BLEPHAROPLASTY 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 REPAIR, ECTROPION, EYE, Dermatochalasis 05/15/2022 7:30 AM CDT BILATERAL 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 documented as of this encounter Visit Diagnoses Diagnosis Coronary artery disease involving morongo coronary artery of morongo heart without angina pectoris - Primary 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
--- OUTSIDE RECORDS SUMMARY | 2022-05-02 12:38 | XMS_ITS | Encounter Summary ---
:1950 Author Organization [place] Address [address] [facility] [place] [address] Care Team Providers Name Role Phone Anatoliy Jackson MD Primary Care Provider Heath More MD Unavailable Peter Gipson MD Unavailable Encounter Details Date Type Department Care Team Description 12/06/2015 Orders Only [facility] Heart Hype rlipidemia LDL goal <[address] [place] [address] Social History Tobacco Use Types [...] MD [facility] [address] [place] [id number] (Wo rk) 05/15/2022 Surgery Surgery Neo Torres MD BLEPHAROPLASTY BILATERAL [facility] PTOSIS REPAIR BILATERAL [address] [place] [id number] (Wo rk) 06/25/2022 Ancillary Procedure Cardiology Kirk Silver MD [address] [place] [id number] (Wo rk) Scheduled Procedures Name Priority Associated [...] Associated Diagnosis Comme nts LIPID PROFILE STAT 12/06/2015 8:12 AM Hyperlipidemia LDL go al Results for this CDT <100 procedure are i n the results section. documented in this encounter Results (ABNORMAL) Lipid Profile (12/06/2015 8:12 AM CDT) P athologist Signature Cholesterol 113 <200 mg/dL [facility] Triglycerides 154 (H) <150 mg/dL [facility] Comment: Borderline high: ??150-199 mg/dl High: ? 200-499 mg/dl Very high: ? >499 mg/dl Fasting specimen HDL Cholesterol 33 (L) >39 mg/dL [facility] LDL Cholesterol Calculated 49 <100 mg/dL [facility] Comment: Desirable: <100 mg/dl Non HDL Cholesterol 80 <130 mg/dL [facility] Specimen Anatomical Collection Method Collection Time Receive d Time (Source) Location / / Volume Laterality Blood specimen 12/06/2015 8:12 AM 016 8:13 (specimen) CDT AM CDT Peter Aguiar MD LAB - BLOOD ORDERABLES Performing Organization Address City/State/ZIP Code Phon e Number M [facility] [address] [place], [place] [address] [facility] [address] [place], [place] [address], [facility] [phone] documented in this encounter Visit Diagnoses Diagnosis Hyperlipidemia LDL goal <100 Other and unspecified hyperlipidemia 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
--- OUTSIDE RECORDS SUMMARY | 2022-05-02 12:38 | XMS_ITS | Encounter Summary ---
:1950 Author Organization [place] Address [address] [facility] [place] [address] Care Team Providers Name Role Phone Anatoliy Jackson MD Primary Care Provider Heath More MD Unavailable Peter Gipson MD Unavailable Reason for Visit Reason Comments Orders Left heart cath Encounter Details Date Type Department Care Team Description 03/31/2016 Orders Only [facility] Dee Wilkes A bnormal stress test Health Heart RN (Primary Dx) Care-[address] [address] Social History Tobacco Use Types [...] [address] [place] [address] (Wo rk) 05/15/2022 Surgery Surgery Neo Torres MD BLEPHAROPLASTY BILATERAL [place] [facility] PTOSIS REPAIR BILATERAL [address] [place] [address] (Wo rk) 06/25/2022 Ancillary Procedure Cardiology Kirk Silver MD [address] [place] [id number] (Wo rk) Scheduled Procedures Name Priority Associated [...] ptosis documented in this encounter Care Teams General Car Yard Supervisor Relationship Specialty Start Date End Date Anatoliy Jackson MD PCP - General 05/14/12 Heath More PCP - Internal Medicine INTERNAL MEDICINE - 01/06/14 MD Andreas ENDOCRINOLOGY, [facility] [address] [place] [phone] Peter Gipson PCP - Urology 04/02/15 MD Jordan [facility] [address] [place] [address] documented as of this encounter
--- OUTSIDE RECORDS SUMMARY | 2022-05-02 12:38 | XMS_ITS | Encounter Summary ---
:1950 Author Organization [place] Address [address] [facility] [place] [address] Care Team Providers Name Role Phone Anatoliy Jackson MD Primary Care Provider Heath More MD Unavailable Peter Gipson MD Unavailable Reason for Referral - Closed Specialty Diagnoses / Procedures Referred By Contact Refer red To Contact Diagnoses Angina pectoris (H) Coronary artery disease involving wamp[place]ag coronary artery of wamp[place]ag heart without angina pectoris S/P coronary artery stent placement Peter Aguiar MD [address] [place] [address] Referral ID Status Reason Start Date Expiration Date Visits Requ ested Visits Authorized [id number] Closed 03/05/2016 03/05/2017 1 1 Reason for Visit Reason Comments Heart Problem CAD - Closed Specialty Diagnoses / Procedures Referred By Contact Refer red To Contact Diagnoses Angina pectoris (H) Peter Aguiar MD [address] [place] [address] Referral ID Status Reason Start Date Expiration Date Visits Requ ested Visits Authorized [id number] Closed 11/09/2015 11/08/2016 1 1 Encounter Details Date Type Department Care Team Description 12/06/2015 Office Visit Peter Kaye Angina pector is (Primary Dx); [facility] MD Ishan Coronary artery disease involving wampano[place] coronary artery of wampanoag heart without angina pectoris; [facility] [address] S/P coronary artery stent pl acement; [address] [facility] [address] Hyperlipidemia LDL goal <70 [address] [place] [address] [place], [place] [phone] [address] (Work) [phone] Social History Tobacco Use Types Packs/Day Years [...] Sign Reading Time Taken Comments Blood Pressure 100/50 12/06/2015 9:22 AM CDT Pulse 51 12/06/2015 9:22 AM CDT Temperature - - Respiratory Rate - - Oxygen Saturation - - Inhaled Oxygen Concentration - - Weight 99.8 kg (220 lb) 12/06/2015 9:22 AM CDT Height 180.3 cm (5' 11) 12/06/2015 9:22 AM CDT Body Mass Index 30.68 12/06/2015 9:22 AM CDT documented in this encounter Progress Notes Peter Aguiar MD - 12/06/2015 9:47 AM CDT HPI and Plan: This 64-year-old gentleman is seen in follow-up of his coronary disease, angina pectoris, and?? complex circumflex stenting (April 09, 2015). He had developed limiting and progressive angina over the last summer, mainly manifested by dyspnea on exertion and exertional fatigue with declining functional status.?? Angiography in the spring showed circumflex disease as well as distal right and proximal right PDA disease although the right system was fairly modest caliber.?? He did not improve on multiple medical therapy, and underwent stenting of the proximal and mid circumflex and second obtuse marginal. Well he significantly improved he continued to have some mild chest discomfort with activity requiring rest for relief. With very careful warm up this was less likely to happen. When he pretreated with sublingual nitroglycerin he would get less symptoms and they would resolve fairly quickly while he continued activity. This was occurring while on 3 anti-anginal drugs (metoprolol, amlodipine, isosorbide mononitrate). His PSA had again risen so he recently underwent biopsy. He tolerated a week off of Plavix without problems. He reports biopsy did not show malignancy, however he developed urinary retention following that and has required self- catheterization since then. This may be slowly improving currently and he does not yet know whether he will require TURP or not. Since his biopsy is cut back on his activities so he is not sure if he is still having much angina. He was able to do some yard work recently without it. However is not doing his walking or major workouts..?? He never gets this symptom at rest,?? has not had resting shortness of breath, orthopnea, edema, bleeding, focal neurologic symptoms, palpitations dizziness or syncope. Resting blood pressure is well-controlled. Rhythm is regular. No evidence of volume overload. Lipids today show hematocrit goal CHOL 113 12/06/2015 HDL 33 12/06/2015 LDL 49 12/06/2015 TRIG 154 12/06/2015 Impression/plan 1-angina pectoris.??Pattern stable but was interfering with his workouts previously. He is cut back because of his prostate issues and likely will continue to so until those are resolved. The residual unrevascularized territories are very small first obtuse marginal which is too small to stent, and his distal right and PDA, which could be stented if necessary.?? He'll continue current medical management while the prostate issue is sorted out. I will have him back after that and he's been able to resume normal activity and if he is still limited by angina we will need to consider right coronary stent ing. 2-coronary artery disease. Normal ejection fraction no heart failure or arrhythmia symptoms. Blood pressure and lipids well controlled. Not smoking. Working on diabetes control.??Lipids well controlled. Exercise/activity has been very well implemented up until his current postbiopsy issues. Overall risk factor intervention is going well. 3-status post?? left circumflex stenting. Stable. Continue dual antiplatelet therapy. In a month, halie be 9 months out from stenting with zotarolimus JAVIER. Thus if he needs to stop the Plavix for a week prior to TURP and for a week afterwards, I think this is very acceptable and very low risk 4-dyslipidemia, and lipids today show excellent LDL lowering after switch back to some statins will be continued I will plan on a three-month follow-up, sooner if his angina is limiting his normal activity. Orders Placed This Encounter Procedures ??? Follow-Up with Metal Products Fabricator Assembler Orders Placed This Encounter Medications ??? ciprofloxacin (CIPRO) 500 MG tablet Sig: Take 500 mg by mouth daily ??? finasteride (PROSCAR) 5 MG tablet Sig: Take 5 mg by mouth There are no discontinued medications. Encounter Diagnoses Name Primary? Angina pectoris Yes ??? Coronary artery disease involving wampanoag coronary artery of wampanoag heart without angina pectoris ??? S/P coronary artery stent placement ? ? Hyperlipidemia LDL goal <70 CURRENT MEDICATIONS: Current Outpatient Prescriptions Medication Sig Dispense Refill ??? ciprofloxacin (CIPRO) 500 MG tablet Take 500 mg by mouth daily ??? finasteride (PROSCAR) 5 MG tablet Take 5 mg by mouth ??? clopidogrel (PLAVIX) 75 MG tablet Take 1 tablet (75 mg) by mouth daily 90 tablet 2 ??? amLODIPine (NORVASC) 5 MG tablet Take [...] Take 325 mg by mouth daily ??? nitroglycerin (NITROSTAT) 0.4 MG SL tablet Take 1 tab under the tongue for chest pain, may repeat every 5 minutes x2. If pain not relieved then seek medical attention 25 tablet 3 ??? GABAPENTIN PO Take 300 mg by mouth as needed ??? lisinopril-hydrochlorothiazide (PRINZIDE,ZESTORETIC) 20-12.5 MG per tablet Take 1 tablet by mouth 2 times daily ??? ONE TOUCH ULTRA TEST STRP as directed 100 prn ??? SYRINGE B-D MICRO FINE 1/2 CC SYRINGES as directed 100 prn ??? LANTUS 100 UNIT/ML SC SOLN as directed 100 0 ??? INSULIN LISPRO (HUMAN) 100 UNIT/ML SC SOLN As directed One month 0 ALLERGIES Allergies Allergen Reactions ??? Atorvastatin Other (See Comments) Congestion ??? Epinephrine Palpitations PAST MEDICAL HISTORY: Past Medical History Diagnosis Date ??? Polyneuropathy in diabetes(357.2) ([facility]) Abstracted 01/20/02 ??? Type II or unspecified type diabetes mellitus with neurological manifestations, not stated as uncontrolled(250.60) Abstracted 01/20/02 ??? Pure hypercholesterolemia Abstracted 01/20/02 ??? Unspecified essential hypertension ??? Cancer ([facility]) 1980 Melanoma ??? Coronary artery disease 07/2013, 12/2014 moderate to severe 3v CAD 12/2014 ??? Angina pectoris ([facility]) ??? PVD (peripheral vascular disease) ([facility]) PAST SURGICAL HISTORY: Past Surgical History Procedure [...] Mother ??? Hypertension Maternal Grandfather SOCIAL HISTORY: History Social History ??? Marital Status: Spouse [...] Other Topics Concern ??? Caffeine Concern No in the last two week none ??? Sleep Concern No ??? Weight Concern No ??? Special Diet Yes counts carbs, diabetic diet ??? Exercise Yes last 2 months not much Social History Narrative Review of Systems: Skin: Positive for itching;bruising itch spot on the right arm wrist Eyes: Positive for glasses ENT: Positive for postnasal drainage;hearing loss for years, small amount Respiratory: Negative dyspnea on exertion Tight chest when walking Cardiovascular: Negative Positive for;fatigue;lightheadedness;dizziness Occas. Gastroenterology: Positive for constipation Genitourinary: Positive for retention;prostate problem Musculoskeletal: Positive for neck pain;arthritis;foot pain Fingers arthritis, knees hurt a bit- perpt, foot pain at night Neurologic: Positive for numbness or tingling of hands Psychiatric: Negative Heme/Lymph/Imm: Positive for easy bruising Endocrine: Positive for diabetes Physical Exam: Vitals: BP 100/50 mmHg Pulse 51 Ht 1.803 m (5' 11) Wt 99.791 kg (220 lb) BMI 30.70 kg/m2 Constitutional: cooperative, alert and oriented, well developed, well nourished, in no acute distress Skin: warm and dry to the touch, no apparent skin lesions or masses noted Head: normocephalic, no masses or lesions Eyes: pupils equal and round;sclera white;EOMS intact ENT: no pallor or cyanosis Neck: JVP normal Chest: normal respiratory excursion Cardiac: regular rhythm Abdomen: Vascular: Extremities and Back: Neurological: affect appropriate, oriented to time, person and place More than 50% of this 20 minute pryd-ey-iquo visit was counseling/coordination of care CC documented in this encounter Plan of Treatment Upcoming Encounters Date Type Specialty Care Team Description 05/15/2022 Hospital Encounter Surgery Singh Torres MD [facility] [address] [place] [address] (Wo rk) 05/15/2022 Surgery Surgery Neo Torres MD BLEPHAROPLASTY BILATERAL [facility] PTOSIS REPAIR BILATERAL [address] [place] [address] (Wo rk) 06/25/2022 Ancillary Procedure Cardiology Kirk Silver MD [address] [place] [address] (Wo rk) Scheduled Procedures Name Priority Associated [...] Order S chedule Follow-Up with Referral Routine Angina pectoris Expected: 03/05/2016 [employer] Fabricator Assembler Coronary artery (Approximate ), disease involving Expires: 0 12/05/2016 wampanoag coronary artery of wampanoag heart without angina pectoris S/P coronary artery stent placement documented as of this encounter Visit Diagnoses Diagnosis Angina pectoris - Primary Other and unspecified angina pectoris Coronary artery disease involving w[place] coronary artery of wamp[place]ag heart without angina pectoris S/P coronary artery stent placement Postsurgical percutaneous transluminal c oronary angioplasty status Hyperlipidemia LDL goal <70 Other and unspecified hyperlipidemia 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
--- OUTSIDE RECORDS SUMMARY | 2022-05-02 12:38 | XMS_ITS | Encounter Summary ---
:1950 Author Organization [place] Address [address] [place] [address] Care Team Providers Name Role Phone Anatoliy Jackson MD Primary Care Provider Heath More MD Unavailable Peter Gipson MD Unavailable Reason for Visit Reason Onset Date Comments Previsit 12/05/2015 Encounter Details Date Type Department Care Team Description 12/05/2015 PRE VISIT [facility] Peter Aguiar, Previsit [facility] [address] [place] [address] [place] [address] [phone] Social History Tobacco Use Types Packs/Day Years [...] [address] [place] [address] (Wo rk) 05/15/2022 Surgery Surgery Neo Torres MD BLEPHAROPLASTY BILATERAL [facility] PTOSIS REPAIR BILATERAL [address] [place] [address] (Wo rk) 06/25/2022 Ancillary Procedure Cardiology Kirk Silver MD [address] [place] [id number] (Wo rk) Scheduled Procedures Name Priority Associated [...] on filedocumented in this encounter Care Teams Gear Hobber Set Up Operator Relationship Specialty Start Date End Date Anatoliy Jackson MD PCP - General 05/14/12 Heath More PCP - Internal Medicine INTERNAL MEDICINE - 01/06/14 MD Andreas ENDOCRINOLOGY, [facility] [address] [place] [phone] Peter Gipson PCP - Urology 04/02/15 MD Jordan [facility] [address] [place] [address] documented as of this encounter
--- OUTSIDE RECORDS SUMMARY | 2022-05-02 12:38 | XMS_ITS | Encounter Summary ---
:1950 Author Organization [place] Address [address] [facility] [place] [address] Care Team Providers Name Role Phone Anatoliy Jackson MD Primary Care Provider Heath More MD Unavailable Peter Gipson MD Unavailable Reason for Referral - Closed Specialty Diagnoses / Procedures Referred By Contact Refer red To Contact Diagnoses Angina pectoris (H) Peter Aguiar MD [address] [place] [address] Referral ID Status Reason Start Date Expiration Date Visits Requ ested Visits Authorized [id number] Closed 11/09/2015 11/08/2016 1 1 TECHNICAL ARCHITECT Reason for Visit Reason Comments Heart Problem 3 month f/u CAD (JAVIER to Cx a nd OM - 04/09/2015) and hyperlipidemia. Residual PDA and RCA disease . See phone encounters 06/20-06/29 regarding CP, Cardiac rehab notes in Epic. Awaiting PMD updates. Urology appt 10/05 (elevated PSA), note with schedule - Closed Specialty Diagnoses / Procedures Referred By Contact Refer red To Contact Diagnoses Angina pectoris (H) CAD in [place] artery S/P coronary artery stent placement Peter Aguiar MD [address] [place] [address] Referral ID Status Reason Start Date Expiration Date Visits Requ ested Visits Authorized [id number] Closed 10/03/2015 10/02/2016 1 1 Encounter Details Date Type Department Care Team Description 10/10/2015 Office Visit Peter Kaye Angina pector is; [facility] Heart MD Ishan CAD in [place] artery; [facility] S/P coronary artery stent pl acement [address] [place] [address] [place], [place] [phone] [address] (Work) [phone] Social History Tobacco Use Types Packs/Day Years Used Date Never Smoker Tobacco Cessation: Counseling Given: Yes Alcohol Use [...] Sign Reading Time Taken Comments Blood Pressure 110/52 10/10/2015 9:37 AM LEAD TECHNICAL ARCHITECT Pulse 60 10/10/2015 9:37 AM LEAD TECHNICAL ARCHITECT Temperature - - Respiratory Rate - - Oxygen Saturation 97% 10/10/2015 9:37 AM LEAD TECHNICAL ARCHITECT Inhaled Oxygen Concentration - - Weight 103 kg (227 lb) 10/10/2015 9:37 AM LEAD TECHNICAL ARCHITECT Height 180.3 cm (5' 11) 10/10/2015 9:37 AM LEAD TECHNICAL ARCHITECT Body Mass Index 31.66 10/10/2015 9:37 AM LEAD TECHNICAL ARCHITECT documented in this encounter Progress Notes Peter Aguiar MD - 10/10/2015 10:39 AM CST HPI and Plan: This 64-year-old gentleman is seen in follow-up of his coronary disease, angina pectoris, and complex circumflex stenting (April 09, 2015). He had developed limiting and progressive angina over the last summer, mainly manifested by dyspnea on exertion and exertional fatigue with declining functional status. Angiography in the spring showed circumflex disease as well as distal right and proximal right PDA disease although the right system was fairly small caliber. He did not improve on multiple medical therapy, and underwent stenting of the proximal and mid circumflex and second obtuse marginal . Following adjuvant cardiac rehabilitation he was able to titrate up his functional status and activity. However he was noticing some mild chest tightness which he could walk through usually. This was anew symptom, not previously present. He finished cardiac rehabilitation and was able to warm up on his exercises so he didn't get those symptoms by the end of cardiac rehabilitation. He now goes to [employer] and does an hour and 45 minute workout. If he starts out with some weightlifting and then proceeds to a bicycle, then electrical, and the treadmill he gets no chest tightness or chest discomfort, unusual dyspnea, or limiting other symptoms. This last week he went back to walking outside as he prefers that to working out in the gym. There are some hills in his Route. He is again noticing fairy vague mild (1/10) chest tightness with his walk. He has not tried pretreating with sublingual ni troglycerin or using sublingual nitroglycerin during these walks. He never gets this symptom at rest, has not had resting shortness of breath, orthopnea, edema, bleeding, focal neurologic symptoms, palpitations dizziness or syncope. His PSA has again risen and he is being considered for biopsy. He is going to have an MRI this week and the determination whether the biopsy will be based on that. He is now more than 6 month's out forstenting. He had zotarolimus JAVIER. Therefore the risk of stopping his Plavix for 1 week is very low, less than 0.25% for stent thrombosis. Therefore, if needed, he could stop it for a week. The day after biopsy, if there are no bleeding issues, he should restart it with a 300 mg load the first day, andthen resume 75 mg daily. Resting blood pressure is well-controlled. Rhythm is regular. No evidence of volume overload. Normalcardiac and pulmonary exams. Normal right pedal pulses and left posterior tibial. Diminished left dorsalis pedis. Impression/plan 1-angina pectoris. He does not get it working out at the gym when he does a warm up. He has noticed it this week with walking outside for unclear reasons. The residual unrevascularized territories are very small first obtuse marginal which is too small to stent, and his distal right and PDA, which could be stented if necessary. I have asked him to try pretreating with sublingual nitroglycerin for hiswalks to see how this helps. I will have him back in a month to review his course. He will continue working out warming up. I have discussed the indication for revascularization would be quality of life affecting angina and he will attention much of an issue with this. 2-coronary artery disease. Normal ejection fraction no heart failure or arrhythmia symptoms. Blood pressure and lipids well controlled. Not smoking. Working on diabetes control. He now recalls switching back to simvastatin from 80 atorvastatin about time of his stenting. At that time LDL was well controlled but it is not clear how well his control now that back on simvastatin. He thought he may have had lipids checked with his acidizer water well a few months ago. He will check that level and if not, wewill check a fasting lipid profile next visit. 3-status post left circumflex stenting. Stable. Continue dual antiplatelet therapy 4-dyslipidemia, as per #2 above. 5-abnormal, rising PSA. May possibly need biopsy. Plans as noted in history of present illness above. I will have him back in a month to review his course. Orders Placed This Encounter Procedures ??? Follow-Up with Director Corporate Compliance No orders of the defined types were placed in this encounter. Medications Discontinued During This Encounter Medication Reason ??? fluticasone (FLONASE) 50 MCG/ACT nasal spray Stopped by Patient Encounter Diagnoses Name Primary? Angina pectoris ??? CAD in [place] artery ??? S/P coronary artery stent placement CURRENT [...] History Diagnosis Date ??? Polyneuropathy in diabetes(357.2) ([facility]) Abstracted 01/20/02 ??? Type II or unspecified type diabetes mellitus with neurological manifestations, not stated as uncontrolled(250.60) Abstracted 01/20/02 ??? Pure hypercholesterolemia Abstracted 01/20/02 ??? Unspecified essential hypertension ??? Cancer ([facility]) 1980 Melanoma ??? Coronary artery disease 07/2013, 12/2014 moderate to severe 3v CAD 12/2014 ??? Angina pectoris ([facility]) ??? PVD (peripheral vascular disease) ([facility]) PAST SURGICAL HISTORY: Past Surgical History Procedure [...] History ??? Marital Status: Spouse Name: N/A Number of Children: N/A ??? Years of Education: N/A Social History Main Topics ??? Smoking status: Never Smoker ??? Smokeless tobacco: None ??? Alcohol Use: 0.0 oz/week 0 Standard drinks or equivalent per week Comment: beer and wine, every couple days ??? Drug Use: No ??? Sexual Activity: None Other Topics Concern ??? Caffeine Concern No 2-3 cups daily ??? Sleep Concern No ??? Weight Concern No ??? Special Diet Yes counts carbs, diabetic diet ??? Exercise Yes cardiac rehab 3 days per week Social History Narrative Review of Systems: Skin: Negative Eyes: Positive for glasses ENT: Negative Respiratory: Positive for dyspnea on exertion stairs gets SOB Cardiovascular: lightheadedness;dizziness;chest pain;Positive for chest tightness - mild - has had 3episodes- usually happens with exertion Gastroenterology: Negative Genitourinary: Positive for urinary frequency Musculoskeletal: Positive for arthritis;neck pain Neurologic: Positive for numbness or tingling of feet;numbness or tingling of hands Psychiatric: Negative Heme/Lymph/Imm: Positive for easy bruising Endocrine: Positive for diabetes Physical Exam: Vitals: BP 110/52 mmHg Pulse 60 Ht 1.803 m (5' 11) Wt 102.967 kg (227 lb) BMI 31.67 kg/m2 SpO2 97% Constitutional: cooperative;in no acute distress Skin: warm and dry to the touch Head: normocephalic Eyes: pupils equal and round;sclera white ENT: no pallor or cyanosis Neck: JVP normal;carotid pulses are full and equal bilaterally left carotid bruit Chest: normal symmetry;normal respiratory excursion;clear to auscultation Cardiac: regular rhythm, normal S1/S2, no S3 or S4, apical impulse not displaced, no murmurs, gallops or rubs Abdomen: abdomen soft;non-tender;no bruits;no HSM Vascular: 2+ 1+ right radial cather insertion site c/d/i, no bleeding, no echymossis, good distal pulses and normal range of motion Extremities and Back: no edema;no deformities, clubbing, cyanosis, erythema observed trace ankle edema Neurological: affect appropriate, oriented to time, person and place;no gross motor deficits CC Peter Aguiar MD [facility] [address] [place] [address] documented in this encounter Plan of Treatment Upcoming Encounters Date Type Specialty Care Team Description 05/15/2022 Hospital Encounter Surgery Singh Torres MD [facility] [address] [place] [address] (Wo rk) 05/15/2022 Surgery Surgery Neo Torres MD BLEPHAROPLASTY BILATERAL [facility] PTOSIS REPAIR BILATERAL [address] [place] [address] (Wo rk) 06/25/2022 Ancillary Procedure Cardiology Kirk Silver MD [address] [place], [place] [phone] (Wo rk) Scheduled Procedures Name Priority Associated [...] Follow-Up with Referral Routine Angina pectoris Expected: 11/09/2015 Director Corporate Compliance (Approximate), Expires: 2016 documented as of this encounter Visit Diagnoses Diagnosis Angina pectoris Other and unspecified angina pectoris CAD in [place] artery Coronary atherosclerosis of [place] coron [place] artery S/P coronary artery stent placement 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
--- OUTSIDE RECORDS SUMMARY | 2022-05-02 12:39 | XMS_ITS | Encounter Summary ---
:1950 Author Organization [place] Address [address] [facility] [place] [address] Care Team Providers Name Role Phone Anatoliy Jackson MD Primary Care Provider Heath More MD Unavailable Peter Gipson MD Unavailable Reason for Visit Rehab Therapy Cardiac Therapy - Closed Specialty Diagnoses / Procedures Referred By Contact Refer red To Contact CARDIAC REHAB Diagnoses CAD in [place] artery [facility] [address] [place] [address] Phone: Fax: Referral ID Status Reason Start Date Expiration Date Visits V isits Requested Authorized FR- CR Closed 04/16/2015 08/09/2015 36 36 ([id number]) Encounter Details Date Type Department Care Team Description 06/25/[address] [facility] Cardiac Jose Wilson MD [facility] [address] [place] [address] and Pulmonary 1, Rh Cardiac Re[facility] [address] [facility] [address] [place] [address] Social History Tobacco Use [...] 09/18/2004 1/2 CC SYRINGES amLODIPine (NORVASC) 5 MG Take 1 tablet (5 90 tablet 3 12/0909/18/2015 tabletIndications: mg) by mouth daily Coronary atherosclerosis of unspecified type of vessel, [place] or graft aspirin 325 MG tablet Take 81 mg by mouth 0 02/18/2021 daily carvedilol (COREG) 12.5 Take 1 tablet (12.5 180 tablet 3 07/09/2015 MG tabletIndications: HTN mg) by mouth 2 (hypertension) times daily (with meals) cloNIDine (CATAPRES) 0.1 Take 0.1 mg by 0 04/18/2021 MG tablet mouth 2 times daily clopidogrel (PLAVIX) 75 Take 1 tablet (75 90 tablet 3 04/1009/18/2015 MG tabletIndications: mg) by mouth daily Postsurgical percutaneous transluminal coronary angioplasty status, CAD (coronary artery disease), Status post coronary angioplasty fluticasone (FLONASE) 50 [place] 1 spray into 0 10/10/2015 MCG/ACT nasal spray both nostrils daily GABAPENTIN PO Take 300 mg by 0 021 mouth as needed INSULIN LISPRO (HUMAN) As directed One month 0 01/07/2005 0 02/18/2021 100 UNIT/ML SC SOLNIndications: Type II or unspecified type diabetes mellitus without mention of complication, not stated as uncontrolled isosorbide mononitrate Take 1 tablet (30 30 tablet 2 201408/09/2015 (IMDUR) 30 MG 24 hr mg) by mouth daily tabletIndications: CAD (coronary artery disease) LANTUS 100 UNIT/ML SC as directed 100 0 09/18/2004 SOLN lisinopril-hydrochlorothi Take 1 tablet by 0 12/01/2018 azide mouth daily (PRINZIDE,ZESTORETIC) 20-12.5 MG per tabletIndications: Hypertension nitroglycerin (NITROSTAT) Take 1 tab under 25 tablet 3 12/0912/20/2015 0.4 MG SL the tongue for tabletIndications: CAD chest pain, may (coronary artery disease) repeat every 5 minutes x2. If pain not relieved then seek medical attention simvastatin (ZOCOR) 40 MG Take 40 mg by mouth 0 11/30/2017 tablet daily tamsulosin (FLOMAX) 0.4 Take 0.4 mg by 0 04/11/2016 MG 24 hr capsule mouth At Bedtime documented as of this encounter Plan of Treatment Upcoming Encounters Date Type Specialty Care Team Description 05/15/2022 Hospital Encounter Surgery Singh Torres MD [facility] [address] [place] [address] (Wo rk) 05/15/2022 Surgery Surgery Neo Torres MD BLEPHAROPLASTY BILATERAL [facility] PTOSIS REPAIR BILATERAL [address] [place] [address] [phone] (Wo rk) 06/25/2022 Ancillary Procedure Cardiology Kirk Silver MD [address] [place] [id number] (Wo rk) Scheduled Procedures Name Priority Associated [...] filedocumented in this encounter Care Teams Grab Jack Worker Relationship Specialty Start Date End Date Anatoliy Jackson MD PCP - General 05/14/12 Heath More PCP - Internal Medicine INTERNAL MEDICINE - 01/06/14 MD Andreas ENDOCRINOLOGY, [facility] [address] [facility] [address] [place] [address] Peter Gipson PCP - Urology 04/02/15 MD Jordan [facility] [address] [place] [address] [address] [place], [place] [id number] documented as of this encounter
--- OUTSIDE RECORDS SUMMARY | 2022-05-02 12:39 | XMS_ITS | Encounter Summary ---
:1950 Author Organization [place] Address [address] [facility] [place] [address] Care Team Providers Name Role Phone Anatoliy Jackson MD Primary Care Provider Heath More MD Unavailable Peter Gipson MD Unavailable Reason for Visit Rehab Therapy Cardiac Therapy - Closed Specialty Diagnoses / Procedures Referred By Contact Refer red To Contact CARDIAC REHAB Diagnoses CAD in [place] artery [facility] [address] [place] [address] Phone: Fax: Referral ID Status Reason Start Date Expiration Date Visits V isits Requested Authorized FR- CR Closed 04/16/2015 08/09/2015 36 36 ([id number]) Encounter Details Date Type Department Care Team Description 07/12/2015 Hospital Encounter [facility] Cardiac Jose Wilson MD [facility] [address] [place] [address] and Pulmonary 3, Rh Cardiac Rehab Rehabilitation [facility] [address] [facility] [address] [place] [address] Social History Tobacco Use [...] - - Weight 101.6 kg (224 lb) 07/12/2015 10:00 AM DIRECTOR MARKETING COMMUNICATIONS Height 180.3 cm (5' 10.98) 07/12/2015 10:00 AM DIRECTOR MARKETING COMMUNICATIONS Body Mass Index 31.26 07/12/2015 10:00 AM DIRECTOR MARKETING COMMUNICATIONS documented in this encounter Medications at Time [...] Coronary atherosclerosis of unspecified type of vessel, [place] or graft aspirin 325 MG tablet Take 81 mg by mouth 0 02/18/2021 daily carvedilol (COREG) 12.5 Take 1 tablet (12.5 180 tablet 3 09/18/2015 MG tabletIndications: HTN mg) by mouth 2 (hypertension) times daily (with meals) cloNIDine (CATAPRES) 0.1 Take 0.1 mg by 0 04/18/2021 MG tablet mouth 2 times daily clopidogrel (PLAVIX) 75 Take 1 tablet (75 90 tablet 3 04/1009/18/2015 MG tabletIndications: mg) by mouth daily Postsurgical percutaneous transluminal coronary angioplasty status, CAD (coronary artery disease), Status post coronary angioplasty fluticasone (FLONASE) 50 [place] 1 spray into 0 10/10/2015 MCG/ACT nasal [...] the tongue for tabletIndications: CAD chest pain, december (coronary artery disease) repeat every 5 minutes x2. If pain not relieved then seek medical attention simvastatin (ZOCOR) 40 MG Take 40 mg by mouth 0 11/30/2017 tablet daily tamsulosin (FLOMAX) 0.4 Take 0.4 mg by 0 04/11/2016 MG 24 hr capsule mouth At Bedtime documented as of this encounter Progress Notes Alvaro Hagen MD - 07/12/2015 12:30 PM CST OUTPATIENT CARDIAC REHAB DISCHARGE SUMMARY Name: Nikita Anderson Date of : 1950 Date of Treatment: 04/09/15 Age: [age] year old Gender: male Treatment Diagnosis: Stent Secondary Treatment Diagnosis: Hospital Location: [facility] Discharge Date: 04/09/15 Outpatient CR Start Date: 05/21/15 Primary Physician: Dr. Anatoliy Jackson Surgeon: Product Safety Officer: Dr. Aguiar Ejection Fraction: WNL THR (85% of age predicted max HR): 131.75 Risk Stratification: Moderate Pt made significant gains in exercise tolerance. Initially patient tolerated 35 minutes at 3.3 METs,now tolerating 40 minutes at 6.4 METs. Patient also increased 6-minute walk test by 0%. 1900ft both assessments. The PT was given instructions on frequency, intensity, and duration for continued exercise as well as muscle conditioning and stretching exercises. Your PT plans to join [employer] next Thursday. He will commit to 3 days per week of exercise X 30- 45 min plus wt training. We discussed importance of him taking his BG monitor with him as he frequently drops below 100 post exercise throughout rehab. PT will also have ongoing monitoring for his angina He continues to have very mild angina sporadically throughout the exercise sessions. Rating this .25-1 on a 10 scale. Of note, patient does have neuropathy so suspect that he does not feel the full affect from the angina. Product Safety Officer aware and approved ongoing exercise. 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 We also discussed nitro use. PT seems to have a good handle on his symptoms. Assessment Assessment: 05/21/15 PT seen for initial session of cardiac rehab today. He noted chest tightess with 6 minute walk test(rated a 1 out of 10). Dr. Aguiar's office called to notify of symtpoms and BP values. BP high at rest and hypertensive with exercise, slow to recover. PT appears deconditioned, and has been sedentary. 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 06/08: Patient reports an episode of low BG at work yesterday. Paramedics were called and his BP was measured to be 206/89mmHg and this was concerning to pt. Discussed in simple terms how his body was in distress from the low BG and therefore BP was elevated. Pt is concerned that he may be having high BPs and not be aware of it. Reviewed his BP response to exercise thus far in rehab and how it has been WNL. Pt does feel he could be further challenged and plan to progress further while monitoring BP closely to give patient more assurance. Patient will be seeing Dr. Aguiar next week - chloe aguirre reports to be sent with patient so MD is aware of vitals in rehab. Patient not exercising at home, but encouraged to do so as does attend health club. Patient has busy schedule and unable to attend education classes, but may do so if schedule clears up. Patient will benefit from skilled therapy for proper exercise progression and tolerance, along with support and managment of risk factors to closely monitor both BPs and Blood glucose.07/02/2015 PT is planning to discharge in early July. He has not started to exercise at home yet, but plans to join a health club. He has mild chest discomfort only when he exercises here, but none today. Mod. BP response with exercise-it was 192/60 lastsession- will continue to monitor. PT has an elevated PSA level and may need surgery sometime in the future. He has planning a followup again in September,. He is having less frequent episodes of hypoglycemia since his insulin was adjusted. Skilled therapy for monitoring of sx with exercise with behaviour counseling for managing risk factors. Patient and Program Goals Monitored sessions attended: 22 MET Goal: 5-6 (MET level adjusted on 06/08) Current MET Level: 6.0 Goal To be monitored and safely progess with exercise to assess for symptoms to figure of he needs another intervention. Target Date 07/09/15 Date Met 07/12/15 Progress Towards Goal PT to report symptoms to therapist. 06/08: Patient reports he has not had anysymptoms in rehab since first session during six-min walk test. Patient reports he could be further challenged to better assess BP response to high level activity/exercise. Patient is very aware of anyunusual symptoms for him and keeps MD well informed of any issues. 07/02/2015 PT notes only mild chest discomfort with exercise, but not every session. He rates it as 1-2/10. He has not had any recently outside of rehab. PT to let us know if intensity or frequency increases. Cardiology is aware of his symptoms. Goal Patient is interested in working towards weight loss - estimating he would like to be at or less than 200lbs. Target Date 07/09/15 Date Met (Goal not met) Progress Towards Goal 06/08: Patient reports he is eating well, but not exercising outside of rehab. Pt was encouraged to do at least one additional day of exercise outside of rehab. 07/02/2015 PT's weight remains steady. See Nutrition section. He is not exercising outside of rehab and does not plan to until he completes the program here. He feels he eats healthy and is not adding additional salt tohis food. He is not interested inlogging his diet. 12-3-15 RYP score indicates patient is eating heart healthy. We discussed today eating Real Food anything that does not ahve a 20 year shelf life. PT admits that they do not eat processed foods. Goal Target Date Date Met Progress Towards Goal Goal Target Date Date Met Progress Towards Goal Referrals Recommended Referrals recommended: Ankita Comments: PT has had diabetes education in the past. Pain Assessment Patient Currently in Pain: No Pain Location: Pain Rating: Pain Description: Pain Description Comment: Additional Pain Locations?: Pain Location 2: Pain Rating 2: Pain Location 3: Pain Rating 3: Pain Comments: RISK FACTORS Hypertension Hypertension: Yes Currently taking antihypertensives? Yes Target outcome goal: BP< 140/90 or <130/80 if DM or CKD Outcome Not Achieved Hypertension comments: 06/08: Since initial eval, patient's SBP between 120- 130's. Pt reports he hadepisode of low BG yesterday at work, paramedics called and BP measured to be 206/89mmHg. Pt is greatly concerned about BPs as to why it is getting that high or if that is occuring more often without his knowledge. Discussed BP response to exercise in rehab has been WNL. Plan to monitor BP closely has patient progresses toward MET goal. 07-12-15 Discussed continuous churn buttermaker BP control. PT aware of what his normal BPs should be. Discussed ongoing monitroing at home. Tobacco Tobacco: Never Quit date or planned quit date: Tobacco habit: Tobacco use per day: Interventions planned: Interventions completed: Stages of change: Target outcome goal: Complete Smoking Cessation: Tobacco comments: Stress / Psychosocial Discharge Psychosocial assessment: Re-assessment Patient admits to stress: Denies Current level of stress: Denies Coping skills: Patient Health Questionnaire-9 (PHQ-9) for Depression: 5-9 Minimal symptoms 10-14 Minor depression 15-19 Major depression, moderately severe > 20 Major depression, severe Completed PHQ-9 Score: 1 [facility] Function and Health Status Survey: A score of 4-5 indicates deficit for each functional health domain Completed Physical Fitness: 2 Feelings: 2 Daily Activities: 2 Social Activities: 1 Pain: 2 Change in Health: 1 Overall Health: 3 Social Support: 1 Quality of Life: 3 Stages of change: Maintenance Psychosocial interventions planned: Psychsocial interventions completed: Recognizes signs and symptoms of depression Target outcome goal: Assessment for depression using PhQ-9 and [facility] questionnaires. Maximize coping skills and develop positive support system: Outcome Achieved Comments: 06/08: Discussed [place] and PHQ-9 scores. 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 Pt's curious about spouse support education - given contact info for [facility] to set up consult for patient and . 07/02/2015 PT denies having any stress. He denies depression. I really have it under control since I retired. Nutrition Discharge Dietary assessment: Re-assessment Rate Your Plate - Heart Survey: Scores range from 24 to 72. The higher the score the healthier the eating choices. 61 Overweight / Obesity: Yes Age: 64 Weight: 101.606 kg (224 lb) Height: 180.3 cm (5' 10.98) BMI (Calculated): 31.32 Goal weight: Prescribed diet: Other (Diabetic diet, counts carbohydrates) Follows prescribed diet: > 80% Stages of change to prescribed diet: Maintenance Nutrition interventions planned: Nutrition interventions completed: Educated on weight loss principles, Initiated plan for weight loss/weight maintenance Target outcome goal: BMI < 25: Outcome Achieved Comments: 06/08: Reviewed RYP scores. Patient and feel they do well with diet as they have always watched sodium and carbs closely. 07/02/2015 His weight remains steady. He finds it difficult to lose weight as he has to eat with the insulin he is taking to avoid hypoglycemia. He is not interestedin logging his diet. 07-12-15 RYP score improved from 60- to 61. PT BMI is high and we discussed lowering his wt. PT challenged with this due to DM and needing to eat CHO with exercise and physcal activity. Cholesterol Cholesterol: Labs Available Date: 04/09/15 Total Cholesterol: 132 HDL: 174 LDL: 59 Triglycerides: 174 Target outcome goal: Total cholesterol <150, HDL >40 M >50 F, LDL < 70, Trig < 150: Outcome Not Achieved Comments: 07/02/2015 Triglycerides are still high. No new labs. 07-12-15 no new labs available. PT has had his numbers/CHOL retested howeer he does not know the numbers. Diabetes Management Diabetes Management: Type II Hb A1C: 7.1 or 7.4 per patient Pre-Exercise Blood Sugar: 343 Target outcome goal: Hb A1C < 7: Outcome Not Achieved Comments: On insulin, he has been told he falls in a jacob area, between type 1 and type 2. He wasdiagnosed at age 25 and has been on insulin since ois. Last HbA1c in chart was 9.7 on 06/07/14.07/02/2015 BG over 300 today as PT ate a muffin before exercise. His pump has been adjusted for lessinsulin as he was dropping about 180 points with exercise. He is now going down about 140 points. Helen had only one episode in the last 2 weeks where his BG was under 100. 07-12-15 PT has had numerouslows in cardiac rehab. He is fairly brittle in his control. He also does not have symptoms of hypoglycemia. Therapist encouraged frequent montiroing particarly when he is active. PT encoureaged to seekcounsel from his endocrinlogist on BG control with exercise. Inactivity / Aerobic Exercise Discharge Status Activity assessment: Re-assessment Inactivity: Meets Physical Activity Goal Physical Activity Days per Week: 5 Aerobic Exercise Days per Week: 3 Aerobic Exercise Minutes per Day: 30-45 Stages of Change (Physical Activity): Action Stages of Change (Aerobic Activity): Contemplation Target Outcome Goal: Aerobic Activity 30 minutes, 5 days per week = 150 minutes per week: Outcome Not Achieved Comments: PT has a TM at home, but it doesn't work. 06/08: Patient's has tried to encourage himto attend health club with her, but states patient doesn't seem to be interested or motivated. 07/02/2015 PT has not been exercising outside of rehab. He is planning to join [employer] and exercise once he is done with the program. 07-12-15 PT thinking about joining on Thursday. Therapist encouragedhim to do this sooner than later. INDIVIDUALIZED TREATMENT PLAN Monitored sessions scheduled: 21 Monitored sessions attended: 22 Exercise Reassessment Discharge 6 Minute Walk Distance: 6 Minute Walk Predicted (Male): 1805.2 6 Minute Walk Predicted (Female): 1438.5 Met Level Achieved: 6.0 Resting HR: 57 bpm Exercise HR: 100 bpm Post Exercise HR: 78 bpm Resting BP: 110/58 mmHg Exercise BP: 170/60 mmHg Post Exercise BP: 101/54 mmHg Pre SpO2: While Exercising SpO2: Post SpO2: Pre BG (if applicable): 231 mg/dL Post BG (if applicable): 65 mg/dL (12 oz pop given and BG 124 prior to leavgin) RPE: ECG Rhythm: Sinus rhythm, Sinus bradycardia Ectopy: None Symptoms at home: Denies symptoms Symptoms in rehab: Signs & Symptoms of angina Limitations: Angina, but PT is able to push through it. Exercise Prescription Type: Aerobic exercise, Resistance training, Flexibility training Mode: Treadmill, Airdyne, Nustep, Weights Frequency: 3 daysweek Duration/Time: 30-45 min Age: 64 THR (85% of age predicted max HR): 131.75 RPE recommended: Other (see comments) (OMNI scale ) Progression: 08/13 to 1/2 MET increase per HR, BP and RPE as well as per symptoms. 07/02/2015 PT to push through angina per cardiology as long as PT has only mild chest discomfort -09/19. Lifting weightsup to 10# with HOIST machine weights/leg press also. Angina with exercise: Yes Resistance Training: Yes Comments: PT has not had chest tightness in the past. Symptoms have been dyspnea. 06/08: pt reports he has not had any dyspnea or chest tightness in rehab since first day while doing walk test. 07/02/2015 PT has had angina with exercise some sessions. Will continue to monitor. 15 Ongoing walk through angina. We did ddiscuss what to do if his angina was not walk through or increased. Current Home Exercise Type of Exercise: None Frequency (days per week): Duration (minutes per session): Recommended Home Exercise Prescription Type of Exercise: Walking Frequency (days per week): 4-6 Duration (minutes per session): 30-45 min RPE recommended: Other (see comments) (OMNI scale ) Recommended THR: 120-130 bpm typcially inrehab. Comments/Exercise plan: PT unable to feel his own pulse therefoe focus was placed more on RPE. Patient Education Education Attended: PT did not attend. Physician cosignature/electronic signature indicates agreement with the ITP document and approval ofdischarge. [employer]OR MARKET[employer] COMMUNICATIONS documented in this encounter Plan of Treatment Upcoming Encounters Date Type Specialty Care Team Description 05/15/2022 Hospital Encounter Surgery Singh Torres MD [facility] [address] [place] [id number] (Wo rk) 05/15/2022 Surgery Surgery Neo Torres MD BLEPHAROPLASTY BILATERAL [facility] PTOSIS REPAIR BILATERAL [address] [place] [id number] (Wo rk) 06/25/2022 Ancillary Procedure Cardiology Kirk Silver MD [address] [place] [id number] (Wo rk) Scheduled Procedures Name Priority Associated [...] on filedocumented in this encounter Care Teams Senior Relationship Manager Relationship Specialty Start Date End Date Anatoliy Jackson MD PCP - General 05/14/12 Heath More PCP - Internal Medicine INTERNAL MEDICINE - 01/06/14 MD Andreas ENDOCRINOLOGY, [facility] [address] [place] [id number] Peter Gipson PCP - Urology 04/02/15 MD Jordan [facility] [address] [place] [phone] documented as of this encounter
--- OUTSIDE RECORDS SUMMARY | 2022-05-02 12:39 | XMS_ITS | Encounter Summary ---
:1950 Author Organization [place] Address [address] [facility] [place] [address] Care Team Providers Name Role Phone Anatoliy Jackson MD Primary Care Provider Heath More MD Unavailable Peter Gipson MD Unavailable Reason for Visit Rehab Therapy Cardiac Therapy - Closed Specialty Diagnoses / Procedures Referred By Contact Refer red To Contact CARDIAC REHAB Diagnoses CAD in [place] artery [facility] [address] [place] [address] Phone: Fax: Referral ID Status Reason Start Date Expiration Date Visits V isits Requested Authorized FR- CR Closed 04/16/2015 08/09/2015 36 36 ([id number]) Encounter Details Date Type Department Care Team Description 06/15/2015 Hospital Encounter [facility] Cardiac Jose Wilson MD [facility] [address] [place] [address] and Pulmonary 1, Rh Cardiac Rehab Rehabilitation [facility] [address] [facility] [address] [place] [address] Social History Tobacco Use [...] Coronary atherosclerosis of unspecified type of vessel, [place] or graft aspirin 325 MG tablet Take [...] Status post coronary angioplasty fluticasone (FLONASE) 50 [place] 1 spray into 0 10/10/2015 MCG/ACT nasal [...] [address] [place] [id number] (Wo rk) 05/15/2022 Surgery Surgery Neo Torres MD BLEPHAROPLASTY BILATERAL [facility] PTOSIS REPAIR BILATERAL [address] [place] [id number] [phone] (Wo rk) 06/25/2022 Ancillary Procedure Cardiology Kirk Silver MD [address] [place] [phone] (Wo rk) Scheduled Procedures Name Priority Associated [...] on filedocumented in this encounter Care Teams Case Management Director Relationship Specialty Start Date End Date Anatoliy Jackson MD PCP - General 05/14/12 Heath More PCP - Internal Medicine INTERNAL MEDICINE - 01/06/14 MD Andreas ENDOCRINOLOGY, [facility]INE [facility] [address] [facility] [address] [place] [address] Peter Gipson PCP - Urology 04/02/15 MD Jordan [facility] [address] [place] [address] [address] [place], [place] [phone] documented as of this encounter
--- OUTSIDE RECORDS SUMMARY | 2022-05-02 12:39 | XMS_ITS | Encounter Summary ---
:1950 Author Organization [place] Address [address] [facility] [place] [address] Care Team Providers Name Role Phone Anatoliy Jackson MD Primary Care Provider Heath More MD Unavailable Peter Gipson MD Unavailable Reason for Visit Rehab Therapy Cardiac Therapy - Closed Specialty Diagnoses / Procedures Referred By Contact Refer red To Contact CARDIAC REHAB Diagnoses CAD in [place] artery [facility] [address] [place] [address] Phone: Fax: Referral ID Status Reason Start Date Expiration Date Visits V isits Requested Authorized FR- CR Closed 04/16/2015 08/09/2015 36 36 ([id number]) Encounter Details Date Type Department Care Team Description 07/02/2015 Hospital Encounter [facility] Cardiac Jose Wilson MD [facility] [address] [place] [address] and Pulmonary 1, Rh Cardiac Rehab Rehabilitation [facility] [address] [facility] [address] [place] [address] Social History Tobacco Use [...] - - Weight 102.1 kg (225 lb) 07/02/2015 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 Height 180.3 cm (5' 10.98) 07/02/2015 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 Body Mass Index 31.4 07/02/2015 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 encounter Medications at Time [...] Coronary atherosclerosis of unspecified type of vessel, [place] or graft aspirin 325 MG tablet Take [...] Status post coronary angioplasty fluticasone (FLONASE) 50 [place] 1 spray into 0 10/10/2015 MCG/ACT nasal [...] documented as of this encounter Progress Notes Carmen Acosta OT - 07/02/2015 12:12 PM CST 07/02/15 1000 Session Session Progress Update Certified through this date 07/25/15 Risk Factor - Stress/Psychosocial Comments 06/08: Discussed [place] and PHQ-9 scores. 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 Pt's curious about spouse support education - given contact info for [facility] to set up consult for patient and . 07/02/2015 PT denies having any stress. Risk Factor - Nutrition Management and Overweight/Obesity Comments 06/08: Reviewed RYP scores. Patient and feel they do well with diet as they have always watched sodium and carbs closely. 07/02/2015 His weight remains steady. He finds it difficult to lose weight as he has to eat with the insulin he is taking to avoid hypoglycemia. He is not interested in logging his diet. Risk Factor - Cholesterol Cholesterol Labs Available Date 04/09/15 Total Cholesterol 132 HDL 174 LDL 59 Triglycerides 174 Comments 07/02/2015 Triglycerides are still high. No new labs. Risk Factor - Diabetes Management Diabetes Management Type II Pre Exercise Blood Sugar 343 Comments On insulin, he has been told he falls in a jacob area, between type 1 and type 2. He was diagnosed at age 25 and has been on insulin since diagnois. Last HbA1c in chart was 9.7 on 06/07/14. 07/02/2015 BG over 300 today as PT ate a muffin before exercise. His pump has been adjusted for less insulin as he was dropping about 180 points with exercise. He is now going down about 140 points. He has had only one episode in the last 2 weeks where his BG was under 100. Risk Factor - Inactivity/Aerobic Exercise Activity Assessment Re-assessment Comments PT has a TM at home, but it doesn't work. 06/08: Patient's has tried to encourage him to attend health club with her, but states patient doesn't seem to be interested or motivated. 07/02/2015 PT has not been exercising outside of rehab. He is planning to join [employer] and exercise once he is done with the program. Goal 1 Goal To be monitored and safely progess with exercise to assess for symptoms to figure of he needs another intervention. Progress Towards Goal PT to report symptoms to therapist. 06/08: Patient reports he has not had any symptoms in rehab since first session during six-min walk test. Patient reports he could be further challenged to better assess BP response to high level activity/exercise. Patient is very aware of any unusual symptoms for him and keeps MD well informed of any issues. 07/02/2015 PT notes only mild chest discomfort with exercise, but not every session. He rates it as 1-2/10. He has not had any recently outside of rehab. PT to let us know if intensity or frequency increases. Cardiology is aware of his symptoms. Goal 2 Goal Patient is interested in working towards weight loss - estimating he would like to be at or less than 200lbs. Progress Towards Goal 06/08: Patient reports he is eating well, but not exercising outside of rehab.Pt was encouraged to do at least one additional day of exercise outside of rehab. 07/02/2015 PT's weight remains steady. See Nutrition section. He is not exercising outside of rehab and does not plan to until he completes the program here. He feels he eats healthy and is not adding additional salt to his food. He is not interested inlogging his diet. Assessment Assessment 05/21/15 PT seen for initial session of cardiac rehab today. He noted chest tightess with6 minute walk test(rated a 1 out of 10). Dr. Aguiar's office called to notify of symtpoms and BP values. BP high at rest and hypertensive with exercise, slow to recover. PT appears deconditioned, and has been sedentary. 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 06/08: Patient reports an episode of low BG at work yesterday. Paramedics were called and his BP was measured to be 206/89mmHg and this was concerning to pt. Discussed in simple terms how his body was in distress from the low BG and therefore BP was elevated. Pt is concerned that he may behaving high BPs and not be aware of it. Reviewed his BP response to exercise thus far in rehab and how it has been WNL. Pt does feel he could be further challenged and plan to progress further while monitoring BP closely to give patient more assurance. Patient will be seeing Dr. Aguiar next week - sess ion reports to be sent with patient so [...] with support and managment of risk factors toclosely monitor both BPs and Blood glucose.07/02/2015 PT is planning to discharge in early July.He has not started to exercise at home yet, but plans to join a health club. He has mild chest discomfort only when he exercises here, but none today. Mod. BP response with exercise-it was 192/60 last session- will continue to monitor. PT has an elevated PSA level and may need surgery sometime in the future. He has planning a followup again in September,. He is having less frequent episodes of hypoglycemia since his insulin was adjusted. Skilled therapy for monitoring of sx with exercise with behaviour counseling for managing risk factors. 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 encounter Plan of Treatment Upcoming Encounters Date Type Specialty Care Team Description 05/15/2022 Hospital Encounter Surgery Singh Torres MD [facility] [address] [place] [id number] (Wo rk) 05/15/2022 Surgery Surgery Neo Torres MD BLEPHAROPLASTY BILATERAL [facility] PTOSIS REPAIR BILATERAL [address] [place] [id number] (Wo rk) 06/25/2022 Ancillary Procedure Cardiology Kirk Silver MD [address] [place] [address] [...] on filedocumented in this encounter Care Teams Nautical Instrument Mechanic Relationship Specialty Start Date End Date Anatoliy Jackson MD PCP - General 05/14/12 Heath More PCP - Internal Medicine INTERNAL MEDICINE - 01/06/14 MD Andreas ENDOCRINOLOGY, [facility] [address] [place] [phone] Peter Gipson PCP - Urology 04/02/15 MD Jordan [facility] [address] [place] [address] documented as of this encounter
--- OUTSIDE RECORDS SUMMARY | 2022-05-02 12:39 | XMS_ITS | Encounter Summary ---
:1950 Author Organization [place] Address [address] [facility] [place] [address] Care Team Providers Name Role Phone Anatoliy Jackson MD Primary Care Provider Heath More MD Unavailable Peter Gipson MD Unavailable Reason for Visit Rehab Therapy Cardiac Therapy - Closed Specialty Diagnoses / Procedures Referred By Contact Refer red To Contact CARDIAC REHAB Diagnoses CAD in [place] artery [facility] [address] [place] [address] Phone: Fax: Referral ID Status Reason Start Date Expiration Date Visits V isits Requested Authorized FR- CR Closed 04/16/2015 08/09/2015 36 36 ([id number]) Encounter Details Date Type Department Care Team Description 06/11/2015 Hospital Encounter [facility] Cardiac Jose Wilson MD [facility] [address] [place] [address] and Pulmonary 1, Rh Cardiac Rehab Rehabilitation [facility] [address] [facility] [address] [place] [address] Social History Tobacco [...] Coronary atherosclerosis of unspecified type of vessel, [place] or graft aspirin 325 MG tablet Take [...] Status post coronary angioplasty fluticasone (FLONASE) 50 [place] 1 spray into 0 10/10/2015 MCG/ACT nasal [...] [address] [place] [address] (Wo rk) 05/15/2022 Surgery Surgery Neo Torres MD BLEPHAROPLASTY BILATERAL [facility] PTOSIS REPAIR BILATERAL [address] [place] [id number] [phone] (Wo rk) 06/25/2022 Ancillary Procedure Cardiology Kirk Silver MD [address] [place] [id number] (Wo rk) Scheduled Procedures Name Priority Associated [...] filedocumented in this encounter Care Teams Chief Nuclear Medicine Technologist Relationship Specialty Start Date End Date Anatoliy Jackson MD PCP - General 05/14/12 Heath More PCP - Internal Medicine INTERNAL MEDICINE - 01/06/14 MD Andreas ENDOCRINOLOGY, [facility] [address] [facility] [address] [place] [address] Peter Gipson PCP - Urology 04/02/15 MD Jordan [facility] [address] [place] [address] [address] [place], [place] [id number] documented as of this encounter
--- OUTSIDE RECORDS SUMMARY | 2022-05-02 12:39 | XMS_ITS | Encounter Summary ---
:1950 Author Organization [place] Address [address] [facility] [place] [address] Care Team Providers Name Role Phone Anatoliy Jackson MD Primary Care Provider Heath More MD Unavailable Peter Gipson MD Unavailable Reason for Visit Rehab Therapy Cardiac Therapy - Closed Specialty Diagnoses / Procedures Referred By Contact Refer red To Contact CARDIAC REHAB Diagnoses CAD in [place] artery [facility] [address] [place] [address] Phone: Fax: Referral ID Status Reason Start Date Expiration Date Visits V isits Requested Authorized FR- CR Closed 04/16/2015 08/09/2015 36 36 ([id number]) Encounter Details Date Type Department Care Team Description 06/29/2015 Hospital Encounter [facility] Cardiac Jose Wilson MD [facility] [address] [place] [address] and Pulmonary 1, Rh Cardiac Rehab Rehabilitation [facility] [address] [facility] [address] [place] [address] Social History Tobacco Use [...] Coronary atherosclerosis of unspecified type of vessel, [place] or graft aspirin 325 MG tablet Take [...] Status post coronary angioplasty fluticasone (FLONASE) 50 [place] 1 spray into 0 10/10/2015 MCG/ACT nasal [...] [address] [place] [address] (Wo rk) 05/15/2022 Surgery Surgery Neo Torres MD BLEPHAROPLASTY BILATERAL [facility] PTOSIS REPAIR BILATERAL [address] [place] [id number] [phone] (Wo rk) 06/25/2022 Ancillary Procedure Cardiology Kirk Silver MD [address] [place] [id number] (Wo rk) Scheduled Procedures Name Priority Associated [...] on filedocumented in this encounter Care Teams Lodging House Keeper Relationship Specialty Start Date End Date Anatoliy Jackson MD PCP - General 05/14/12 Heath More PCP - Internal Medicine INTERNAL MEDICINE - 01/06/14 MD Andreas ENDOCRINOLOGY, [facility] [address] [facility] [address] [place] [address] Peter Gipson PCP - Urology 04/02/15 MD Jordan [facility] [address] [place] [address] [address] [place], [place] [phone] documented as of this encounter
--- OUTSIDE RECORDS SUMMARY | 2022-05-02 12:39 | XMS_ITS | Encounter Summary ---
:1950 Author Organization [place] Address [address] [facility] [place] [address] Care Team Providers Name Role Phone Anatoliy Jackson MD Primary Care Provider Heath More MD Unavailable Peter Gipson MD Unavailable Reason for Visit Reason Onset Date Comments Refill Request 08/09/2015 [facility] OV 06/2015 Encounter Details Date Type Department Care Team Description 08/09/2015 Refill [facility] Heart Hyacinth Plummer Refill Request ([facility] Anu Craig DO OV 06/2015) [address] [facility] [address] [facility] [address] [place] [phone] [place] [id number] (Wo rk) Social History Tobacco Use Types [...] [address] [place] [address] (Wo rk) 05/15/2022 Surgery Surgery Neo Torres MD BLEPHAROPLASTY BILATERAL [facility] PTOSIS REPAIR BILATERAL [address] [place] [address] (Wo rk) 06/25/2022 Ancillary Procedure Cardiology Kirk Silver MD [address] [place] [id number] (Wo rk) Scheduled Procedures Name Priority Associated [...] Coronary atherosclerosis of unspecified type of vessel, [place] or graft 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
--- OUTSIDE RECORDS SUMMARY | 2022-05-02 12:39 | XMS_ITS | Encounter Summary ---
:1950 Author Organization [place] Address [address] [facility] [place] [address] Care Team Providers Name Role Phone Anatoliy Jackson MD Primary Care Provider Heath More MD Unavailable Peter Gipson MD Unavailable Reason for Visit Rehab Therapy Cardiac Therapy - Closed Specialty Diagnoses / Procedures Referred By Contact Refer red To Contact CARDIAC REHAB Diagnoses CAD in [place] artery [facility] [address] [place] [address] Phone: Fax: Referral ID Status Reason Start Date Expiration Date Visits V isits Requested Authorized FR- CR Closed 04/16/2015 08/09/2015 36 36 ([id number]) Encounter Details Date Type Department Care Team Description 06/18/2015 Hospital Encounter [facility] Cardiac Jose Wilson MD [facility] [address] [place] [address] and Pulmonary 1, Rh Cardiac Rehab Rehabilitation [facility] [address] [facility] [address] [place] [address] Social History Tobacco Use [...] Coronary atherosclerosis of unspecified type of vessel, [place] or graft aspirin 325 MG [...] Status post coronary angioplasty fluticasone (FLONASE) 50 [place] 1 spray into 0 10/10/2015 MCG/ACT [...] [address] [place] [address] (Wo rk) 05/15/2022 Surgery Surgery Neo Torres MD BLEPHAROPLASTY BILATERAL [facility], INTER[facility] & SURGEONS PA PTOSIS REPAIR BILATERAL [address] [place] [address] [phone] (Wo rk) 06/25/2022 Ancillary Procedure Cardiology Kirk Silver MD [address] [place] [phone] (Wo rk) Scheduled Procedures Name Priority Associated [...] on filedocumented in this encounter Care Teams Design Engineering Manager Relationship Specialty Start Date End Date Anatoliy Jackson MD PCP - General 05/14/12 Heath More PCP - Internal Medicine INTERNAL MEDICINE - 01/06/14 MD Andreas ENDOCRINOLOGY, ENDO[facility] [address] [facility] [address] [place] [address] Peter Gipson PCP - Urology 04/02/15 MD Jordan [facility] [address] [place] [address] [address] [place], [place] [id number] documented as of this encounter
--- OUTSIDE RECORDS SUMMARY | 2022-05-02 12:39 | XMS_ITS | Encounter Summary ---
:1950 Author Organization [place] Address [address] [facility] [address] Care Team Providers Name Role Phone Anatoliy Jackson MD Primary Care Provider Heath More MD Unavailable Peter Gipson MD Unavailable Reason for Referral - Closed Specialty Diagnoses / Procedures Referred By Contact Refer red To Contact Diagnoses Angina pectoris (H) CAD in [place] artery S/P coronary artery stent placement Peter Aguiar MD [address] [place] [address] Referral ID Status Reason Start Date Expiration Date Visits Requ ested Visits Authorized [id number] Closed 10/03/2015 10/02/2016 1 1 [place] MEDIA EXECUTIVE Reason for Visit Reason Comments Heart Problem Hx CAD, hyperlipidemia and d iabetes - Closed Specialty Diagnoses / Procedures Referred By Contact Refer red To Contact Diagnoses CAD in [place] artery Pisano, JanuaryN [facility] [address] [place] [address] Referral ID Status Reason Start Date Expiration Date Visits Requ ested Visits Authorized [id number] Closed 06/17/2015 06/16/2016 1 1 Encounter Details Date Type Department Care Team Description 06/12/2015 Office Visit [facility], Nadia E, A PRN SALES LEDGER CLERK [address] [place] [address] Angina pectoris (Primary Dx); [facility] Heart Peter Aguiar MD [address] [place] [address] CAD in [place] artery; [facility] S/P coronary artery stent pl acement [address] [facility] [address] [place] [address] Social History Tobacco Use Types [...] Sign Reading Time Taken Comments Blood Pressure 124/66 06/12/2015 8:29 AM SOCIAL MEDIA EXECUTIVE Pulse 54 06/12/2015 8:29 AM SOCIAL MEDIA EXECUTIVE Temperature - - Respiratory Rate - - Oxygen Saturation - - Inhaled Oxygen Concentration - - Weight 103 kg (227 lb) 06/12/2015 8:29 AM SOCIAL MEDIA EXECUTIVE Height 180.3 cm (5' 11) 06/12/2015 8:29 AM SOCIAL MEDIA EXECUTIVE Body Mass Index 31.66 06/12/2015 8:29 AM SOCIAL MEDIA EXECUTIVE documented in this encounter Progress Notes Peter Aguiar MD - 06/12/2015 9:36 AM CST HPI and Plan: This 64-year-old gentleman is seen, along with his , and follow-up of his coronary disease, limiting angina pectoris, and recent complex circumflex stenting. He had developed limiting and progressive angina over the summer and underwent stenting of the proximal and mid circumflex and second obtusemarginal the end of March. He's been in cardiac rehabilitation now and doing some traveling. He notes a modest, at least, improvement in his exertional dyspnea which has been his main symptom. If he pushes harder than usual he does get some chest tightness. He has noticed this even in cardiac rehabilitation at times. However in cardiac rehabilitation he usually walks through it in the first minute or 2 and then is not getting it. He's had no worsening of his symptoms and no rest episodes. He was quite sedentary prior to his stenting and does appear overall to be improving his exercise stamina in cardiac rehabilitation. He has not had resting shortness of breath, orthopnea, edema, bleeding, focal n eurologic symptoms, palpitations dizziness or syncope. He is now able to go far enough and fast enough in cardiac rehabilitation that he is getting a little bit of his calf claudication back which has not had for a while as he has been much less active. I emphasized the protective importance and functional improvement importance of a walking program in addressing his claudication. We had a very long conversation about the significance of his residual angina, due to his on revascularized right coronary and right PDA territories. He is ambivalent about how limited he has still by angina. He is also concerned because his PSA had been rising and his urologist was going to wait 6 months to determine if he needed to do a biopsy or more aggressive evaluation, and he is reluctant to start the clock over of dual antiplatelet therapy by doing further stenting at this time. He had zotarolimus eluting stents placed at the time of this stenting so that after 6 months if he needed invasive evaluation or management of his prostate that would be possible. I also reviewed his course and findings and cardiac rehabilitation. I will have him continue that based on those results and would like him to continue to increase his exercise effort. He should consider some form of interval training along with his conditioning training that he is doing. Resting blood pressure is well-controlled. Rhythm is regular. No evidence of volume overload. Vascular access sites well healed. Impression/plan 1-angina pectoris. I still think it is limiting although it has improved somewhat. I am anxious for him to have a good activity functional status and lifestyle to help control his risk factors and his peripheral vascular disease. As above he wants to try further rehabilitation and medical management rather than proceeding to stenting of his right coronary system, which will also need atherectomy, at this time. Therefore we'll continue his current regimen and rehabilitation. I will have him back in between 3 and 4 months after he has seen urologist and had follow-up PSAs and we know the course of action for that condition 2-coronary artery disease. Normal ejection fraction no heart failure or arrhythmia symptoms. Blood pressure and lipids well controlled. Not smoking. Working on diabetes control. We'll continue his current medical regimen. 3-status post recent left circumflex stenting. Stable. Continue dual antiplatelet therapy 4-dyslipidemia, LDL well controlled. More than 50% of this 25 minute jkoz-ic-ovlx visit was counseling/coordination of care. Orders Placed This Encounter Procedures ??? Follow-Up with Voice Pathologist No orders of the defined types were placed in this encounter. There are no discontinued medications. Encounter Diagnoses Name Primary? Angina pectoris Yes ??? CAD in [place] artery ??? S/P coronary artery stent placement CURRENT MEDICATIONS: Current Outpatient Prescriptions Medication Sig Dispense Refill ??? isosorbide mononitrate (IMDUR) 30 MG 24 hr tablet Take 1 tablet (30 mg) by mouth daily 30 tablet2 ??? clopidogrel (PLAVIX) 75 MG tablet Take 1 tablet (75 mg) by mouth daily 90 tablet 3 ??? simvastatin (ZOCOR) 40 MG tablet Take 40 mg by mouth daily ??? cloNIDine (CATAPRES) 0.1 MG tablet Take 0.1 mg by mouth 2 times daily ??? tamsulosin (FLOMAX) 0.4 MG 24 hr capsule Take 0.4 mg by mouth At Bedtime ??? aspirin 325 MG tablet Take 325 mg by mouth daily ??? amLODIPine (NORVASC) 5 MG tablet Take 1 tablet (5 mg) by mouth daily 90 tablet 3 ??? nitroglycerin (NITROSTAT) 0.4 MG SL tablet Take 1 tab under the tongue for chest pain, may repeat every 5 minutes x2. If pain not relieved then seek medical attention 25 tablet 3 ??? carvedilol (COREG) 12.5 MG tablet Take 1 tablet (12.5 mg) by mouth 2 times daily (with meals) 180 tablet 3 ??? GABAPENTIN PO Take 300 [...] SC SOLN as directed 100 0 ??? fluticasone (FLONASE) 50 MCG/ACT nasal spray [place] 1 spray into both nostrils daily ALLERGIES Allergies Allergen Reactions ??? Atorvastatin Other (See Comments) Congestion ??? Epinephrine Palpitations PAST MEDICAL HISTORY: Past Medical History Diagnosis Date ??? 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 Type II or unspecified type diabetes mellitus with neurological manifestations, not stated as uncontrolled(250.60) Abstracted 01/20/02 ??? Pure hypercholesterolemia Abstracted 01/20/02 ??? Unspecified essential hypertension ??? Cancer ([facility]) 1980 Melanoma ??? Coronary artery disease 07/2013, 12/2014 moderate to severe 3v CAD 12/2014 ??? Angina pectoris ([facility]) PAST SURGICAL HISTORY: Past Surgical [...] None ??? Alcohol Use: 0.0 oz/week 0 Not specified per week Comment: beer and wine, every couple days ??? Drug Use: No ??? Sexual Activity: None Other Topics Concern ??? Caffeine Concern No 2-3 cups daily ??? Sleep Concern No ??? Weight Concern No ??? Special Diet Yes counts carbs, diabetic diet ??? Exercise Yes cardiac rehab 3 days per week Social History Narrative Review of Systems: Skin: Positive for bruising shins - bruised Eyes: Positive for glasses ENT: Positive for postnasal drainage Respiratory: Positive for cough post nasal drip , not experiencing any dyspnea in rehab Cardiovascular: Positive for;lightheadedness;dizziness chest tightness - mild - has had 3 episodes- usually happens with exertion Gastroenterology: Negative Genitourinary: Positive for prostate problem;nocturia High PSA - takes flomax Musculoskeletal: Positive for arthritis;foot pain;neck pain;back pain elbow pain is gone , occasional big toe pain , foot pain at night infrequently , fingers Neurologic: Positive for numbness or tingling of hands occasionally Psychiatric: Negative Heme/Lymph/Imm: Positive for allergies RX Endocrine: Positive for diabetes Physical Exam: Vitals: BP 124/66 mmHg Pulse 54 Ht 1.803 m (5' 11) Wt 102.967 kg (227 lb) BMI 31.67 kg/m2 Constitutional: Skin: Head: Eyes: ENT: Neck: Chest: Cardiac: Abdomen: Vascular: Extremities and Back: Neurological: CC Nadia Pisano APRN [facility] [address] [place] [address] [place] MEDIA EXECUTIVE documented in this encounter Plan of Treatment Upcoming Encounters Date Type Specialty Care Team Description 05/15/2022 Hospital Encounter Surgery Singh Torres MD [facility] [address] [place] [id number] (Wo rk) 05/15/2022 Surgery Surgery Neo Torres MD BLEPHAROPLASTY BILATERAL [facility] PTOSIS REPAIR BILATERAL [address] [place] [id number] (Wo rk) 06/25/2022 Ancillary Procedure Cardiology Kirk Silver MD [address] [facility] [address] [place] [address] (Wo rk) Scheduled Procedures Name Priority Associated [...] Follow-Up with Referral Routine Angina pectoris Expected: 10/03/2015 Voice Pathologist CAD in [place] ar [place] (Approximate), S/P coronary artery Expires: 06/11/2016 stent placement documented as of this encounter Visit Diagnoses Diagnosis Angina pectoris - Primary Other and unspecified angina pectoris CAD in [place] artery Coronary atherosclerosis of [place] coron micaela artery S/P coronary artery stent placement 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
--- OUTSIDE RECORDS SUMMARY | 2022-05-02 12:39 | XMS_ITS | Encounter Summary ---
:1950 Author Organization [place] Address [address] [facility] [place] [address] Care Team Providers Name Role Phone Anatoliy Jackson MD Primary Care Provider Heath More MD Unavailable Peter Gipson MD Unavailable Reason for Visit Rehab Therapy Cardiac Therapy - Closed Specialty Diagnoses / Procedures Referred By Contact Refer red To Contact CARDIAC REHAB Diagnoses CAD in [place] artery [facility] [address] [place] [address] Phone: Fax: Referral ID Status Reason Start Date Expiration Date Visits V isits Requested Authorized FR- CR Closed 04/16/2015 08/09/2015 36 36 ([id number]) Encounter Details Date Type Department Care Team Description 07/11/2015 Hospital Encounter [facility] Cardiac Jose Wilson MD [facility] [address] [place] [address] and Pulmonary 1, Rh Cardiac Rehab Rehabilitation [facility] [address] [facility] [address] [place] [address] Social History Tobacco Use [...] Coronary atherosclerosis of unspecified type of vessel, [place] or graft aspirin 325 MG tablet Take [...] Status post coronary angioplasty fluticasone (FLONASE) 50 [place] 1 spray into 0 10/10/2015 MCG/ACT nasal [...] [address] [place] [address] (Wo rk) 05/15/2022 Surgery Surgery Neo Torres MD BLEPHAROPLASTY BILATERAL [facility] PTOSIS REPAIR BILATERAL [address] [place] [address] [phone] (Wo rk) 06/25/2022 Ancillary Procedure Cardiology Kirk Silver MD [address] [place] [id number] (Wo rk) Scheduled Procedures Name Priority Associated [...] on filedocumented in this encounter Care Teams Kiln Furniture Caster Relationship Specialty Start Date End Date Anatoliy Jackson MD PCP - General 05/14/12 Heath More PCP - Internal Medicine INTERNAL MEDICINE - 01/06/14 MD Andreas ENDOCRINOLOGY, ENDOCRINE [facility] DIAB[facility]ES [facility] METABOLISM [facility] [address] [facility] [address] [place] [address] Peter Gipson PCP - Urology 04/02/15 MD Jordan [facility] UROLOGY [address] [place] [address] [address] [place], [place] [phone] documented as of this encounter
--- OUTSIDE RECORDS SUMMARY | 2022-05-02 12:39 | XMS_ITS | Encounter Summary ---
:1950 Author Organization [place] Address [address] [facility] [place] [address] Care Team Providers Name Role Phone Anatoliy Jackson MD Primary Care Provider Heath More MD Unavailable Peter Gipson MD Unavailable Reason for Visit Reason Onset Date Comments Other 06/20/2015 Encounter Details Date Type Department Care Team Description 06/20/2015 Telephone [facility] Heart Clinic Aster Rivas RN [address] [place] [address] Social History Tobacco Use Types [...] Telephone Encounter - Tiffany Lu RN - 06/29/2015 3:37 PM BENEFITS PROCESSOR Contacted patient to see how he did in cardiac rehab today. He said he was able to finish his exercise session without any chest pain. He did not pre-treat himself with nitro, I wanted to try without it. He said his blood pressure was low and he felt hypoglycemic after the workout. He said he is feeling fine right now. I advised him to go to the ED if he has chest pain that does not resolve with rest or after trying nitroglycerin. I contacted Cardiac rehab and spoke with Krupa. She said patient exercised in a reverse pattern (did the treadmill last). When he finished the treadmill he reported feeling hypoglycemic, initial bg was 96, after juice it was 126. They sat him down took his blood pressure which was 74/60 after a few minutes bp was 102/60. After reporting he felt better, they walked him around the room before he left.Last blood pressure was 108/60's. Will update . FITS PROCESSOR Telephone Encounter - Brenda Concepcion RN - 06/28/2015 3:57 PM CST Pt called back and I reviewed 's response from 06/26 with him regarding his chest pain. Pt will try pretreating with SL nitro at cardiac rehab tomorrow. He said he only seems to get the chest discomfort when he is on the treadmill and not on the elliptical or nu-step machine. He said he increased the intensity of his workouts within the past two weeks which is when the discomfort started. Hesaid he has been treating his chest discomfort with SL nitro at rehab and it takes the pain away most of the time. He will try pre-treating tomorrow at rehab and call us with an update. I told pt if hecontinues to have angina even after taking the nitro he needs to call and let us know and will need angio per 's note. Chandana KELLY FITS PROCESSOR Telephone Encounter - Ariella Rivas RN - 06/26/2015 8:57 AM CST Left message for Carlotta, Cardiac Rehab, with message from Dr Aguiar (Previously was having walk through angina (collateral dependent RCA- wanted to wait until 6 months to consider SUPERVISORY AIR INTERCEPT CONTROLLER PCI because of rising PSA). Is it still walk though angina- if so OK to continue rehab. Should also try pretreating with nitro before exercise. If not controlled with this, will need angio.) Also left a message for pt to return the call to review the above information and to assess if the pain is still walk through angina. [place] FITS PROCESSOR Telephone Encounter - Peter Aguiar MD - 06/25/2015 4:54 PM BENEFITS PROCESSOR Previously was having walk through angina (collateral dependent RCA- wanted to wait until 6 months to consider SUPERVISORY AIR INTERCEPT CONTROLLER PCI because of rising PSA). Is it still walk though angina- if so OK to continue rehab. Should also try pretreating with nitro before exercise. If not controlled with this, will need angio. FITS PROCESSOR Telephone Encounter - Ariella Rivas RN - 06/20/2015 1:14 PM CST Carlotta, from [facility] Cardiac Rehab, calling to report that pt is having more frequent episodes of chest discomfort while in cardiac rehab. Previously the episodes were rated at <1-1/10 but today pt rated it at 1-2/10 and was relieved by ntg within 2 minutes then the discomfort returned when pt got on the treadmill again (subsides with rest). Dr Aguiar has been aware that pt is having somechest symptoms with exercise but rehab states that the episodes are more frequent. They are asking if they should be concerned, if pt should be premedicating with ntg or would need other med adjustments (pt takes Imdur 30 mg daily). Message sent for Dr Aguiar to review and advise. [place] FITS PROCESSOR documented in this encounter Plan of Treatment Upcoming Encounters Date Type Specialty Care Team Description 05/15/2022 Hospital Encounter Surgery Melissa, Philli p M, MD [facility] [address] [place] [address] (Wo rk) 05/15/2022 Surgery Surgery Neo Torres MD BLEPHAROPLASTY BILATERAL [facility] PTOSIS REPAIR BILATERAL [address] [place] [address] (Wo rk) 06/25/2022 Ancillary Procedure Cardiology Kirk Silver MD [address] [place] [id number] (Wo rk) Scheduled Procedures Name Priority Associated [...] on filedocumented in this encounter Care Teams Gold Marker Relationship Specialty Start Date End Date Anatoliy Jackson MD PCP - General 05/14/12 Heath More PCP - Internal Medicine INTERNAL MEDICINE - 01/06/14 MD Andreas ENDOCRINOLOGY, ENDOCRINE [facility]AB[facility]ISM [facility] [address] [place] [phone] Peter Gipson PCP - Urology 04/02/15 MD Jordan [facility] UROLOGY [address] [place] [address] documented as of this encounter
--- OUTSIDE RECORDS SUMMARY | 2022-05-02 12:39 | XMS_ITS | Encounter Summary ---
:1950 Author Organization [place] Address [address] [facility] [place] [address] Care Team Providers Name Role Phone Anatoliy Jackson MD Primary Care Provider Heath More MD Unavailable Peter Gipson MD Unavailable Reason for Visit Rehab Therapy Cardiac Therapy - Closed Specialty Diagnoses / Procedures Referred By Contact Refer red To Contact CARDIAC REHAB Diagnoses CAD in [place] artery [facility] [address] [place] [address] Phone: Fax: Referral ID Status Reason Start Date Expiration Date Visits V isits Requested Authorized FR- CR Closed 04/16/2015 08/09/2015 36 36 ([id number]) Encounter Details Date Type Department Care Team Description 06/27/2015 Hospital Encounter [facility] Cardiac Jose Wilson MD [facility] [address] [place] [address] and Pulmonary 1, Rh Cardiac Rehab Rehabilitation [facility] [address] [facility] [address] [place] [address] Social History Tobacco Use [...] unspecified type of vessel, [place] or graft aspirin 325 MG tablet Take [...] Status post coronary angioplasty fluticasone (FLONASE) 50 [place] 1 spray into 0 10/10/2015 MCG/ACT nasal [...] [address] [place] [address] (Wo rk) 05/15/2022 Surgery Surgery Neo Torres MD BLEPHAROPLASTY BILATERAL [facility] SURGEONS [facility] PTOSIS REPAIR BILATERAL [address] [place] [id number] [phone] (Wo rk) 06/25/2022 Ancillary Procedure Cardiology Kirk Silver MD [address] [place] [id number] (Wo rk) Scheduled Procedures Name Priority Associated [...] on filedocumented in this encounter Care Teams Mailing Machine Helper Relationship Specialty Start Date End Date Anatoliy Jackson MD PCP - General 05/14/12 Heath More PCP - Internal Medicine INTERNAL MEDICINE - 01/06/14 MD Andreas ENDOCRINOLOGY, ENDOCRINE CLIN[facility] OF DIABETES [facility] METABOLISM [facility] [address] [facility] [address] [place] [address] Peter Gipson PCP - Urology 04/02/15 MD Jordan [facility] UROLOGY [address] [place] [address] [address] [place], [place] [phone] documented as of this encounter
--- OUTSIDE RECORDS SUMMARY | 2022-05-02 12:39 | XMS_ITS | Encounter Summary ---
:1950 Author Organization [place] Address [address] [facility] [place] [address] Care Team Providers Name Role Phone Anatoliy Jackson MD Primary Care Provider Heath More MD Unavailable Peter Gipson MD Unavailable Reason for Visit Rehab Therapy Cardiac Therapy - Closed Specialty Diagnoses / Procedures Referred By Contact Refer red To Contact CARDIAC REHAB Diagnoses CAD in [place] artery [facility] [address] [place] [address] Phone: Fax: Referral ID Status Reason Start Date Expiration Date Visits V isits Requested Authorized FR- CR Closed 04/16/2015 08/09/2015 36 36 ([id number]) Encounter Details Date Type Department Care Team Description 06/20/2015 Hospital Encounter [facility] Cardiac Jose Wilson MD [facility] [address] [place] [address] and Pulmonary 1, Rh Cardiac Rehab Rehabilitation [facility] [address] [facility] [address] [place] [address] Social History Tobacco Use [...] Coronary atherosclerosis of unspecified type of vessel, [place] or graft aspirin 325 MG tablet Take [...] Status post coronary angioplasty fluticasone (FLONASE) 50 [place] 1 spray into 0 10/10/2015 MCG/ACT nasal [...] [address] [place] [address] (Wo rk) 05/15/2022 Surgery Surgery Neo Torres MD BLEPHAROPLASTY BILATERAL [facility] & SURGEONS [facility] PTOSIS REPAIR BILATERAL [address] [place] [address] [phone] (Wo rk) 06/25/2022 Ancillary Procedure Cardiology Kirk Silver MD [address] [place] [address] (Wo rk) Scheduled Procedures Name Priority Associated [...] on filedocumented in this encounter Care Teams Ribbon Inker Relationship Specialty Start Date End Date Anatoliy Jackson MD PCP - General 05/14/12 Heath More PCP - Internal Medicine INTERNAL MEDICINE - 01/06/14 MD Andreas ENDOCRINOLOGY, ENDOCRINE [facility] OF DIABETES & METABOLISM [facility] [address] [facility] [address] [place] [address] Peter Gipson PCP - Urology 04/02/15 MD Jordan [facility] UROLOGY [address] [place] [address] [address] [place], [place] [phone] documented as of this encounter
--- OUTSIDE RECORDS SUMMARY | 2022-05-02 12:39 | XMS_ITS | Encounter Summary ---
:1950 Author Organization [place] Address [address] [facility] [place] [address] Care Team Providers Name Role Phone Anatoliy Jackson MD Primary Care Provider Heath More MD Unavailable Peter Gipson MD Unavailable Reason for Visit Reason Onset Date Comments Refill Request 07/09/2015 [facility] 06/2015 Encounter Details Date Type Department Care Team Description 07/09/2015 Refill [facility] Heart Hyacinth Plummer Refill Request ([facility] Brenda Craig, DO OV 06/2015) [address] [facility] [address] [facility] [address] [place] [address] [place] [id number] (Wo rk) Social History Tobacco Use Types [...] 05/15/2022 Hospital Encounter Surgery Singh Torres MD [facility] [address] [address] [place] [address] (Wo rk) 05/15/2022 Surgery Surgery Neo Torres MD BLEPHAROPLASTY BILATERAL [facility] PTOSIS REPAIR BILATERAL [address] [place] [address] [place] [address] (Wo rk) 06/25/2022 Ancillary Procedure Cardiology Kirk Silver MD [address] [place] [id number] (Wo rk) Scheduled Procedures Name Priority Associated Diagnoses Date/Time REPAIR, PTOSIS, BILATERAL, Dermatochalas is 05/15/2022 7:30 AM CDT WITH BILATERAL BLEPHAROPLASTY 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 REPAIR, ECTROPION, EYE, Dermatochalasis 05/15/2022 7:30 AM CDT BILATERAL 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 documented as of this encounter Visit Diagnoses Diagnosis HTN (hypertension) - Primary Unspecified essential hypertension 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
--- OUTSIDE RECORDS SUMMARY | 2022-05-02 12:39 | XMS_ITS | Encounter Summary ---
:1950 Author Organization [place] Address [address] [facility] [place] [place] [address] Care Team Providers Name Role Phone Anatoliy Jackson MD Primary Care Provider Heath More MD Unavailable Peter Gipson MD Unavailable Reason for Visit Rehab Therapy Cardiac Therapy - Closed Specialty Diagnoses / Procedures Referred By Contact Refer red To Contact CARDIAC REHAB Diagnoses CAD in [place] artery [facility] [address] [place] [address] Phone: Fax: Referral ID Status Reason Start Date Expiration Date Visits V isits Requested Authorized FR- CR Closed 04/16/2015 08/09/2015 36 36 ([id number]) Encounter Details Date Type Department Care Team Description 06/22/2015 Hospital Encounter [facility] Cardiac Jose Wilson MD [facility] [address] [place] [address] and Pulmonary 1, Rh Cardiac Rehab Rehabilitation [facility] [address] [facility] [address] [place] [address] Social History Tobacco Use [...] Coronary atherosclerosis of unspecified type of vessel, [place] or graft aspirin 325 MG tablet Take [...] Status post coronary angioplasty fluticasone (FLONASE) 50 [place] 1 spray into 0 10/10/2015 MCG/ACT nasal [...] [address] [place] [address] (Wo rk) 05/15/2022 Surgery Surgery Neo Torres MD BLEPHAROPLASTY BILATERAL [facility] & [facility]GE[facility] PTOSIS REPAIR BILATERAL [address] [place] [address] [place] [id number] [phone] (Wo rk) 06/25/2022 Ancillary Procedure Cardiology Kirk Silver MD [address] [place] [id number] (Wo rk) Scheduled Procedures Name Priority Associated [...] on filedocumented in this encounter Care Teams System Sales Consultant Relationship Specialty Start Date End Date Anatoliy Jackson MD PCP - General 05/14/12 Heath More PCP - Internal Medicine INTERNAL MEDICINE - 01/06/14 MD Andreas ENDOCRINOLOGY, [facility] [address] [facility] [address] [place] [address] Peter Gipson PCP - Urology 04/02/15 MD Jordan [facility] UROLOGY [address] [place] [address] [address] [place], [place] [phone] documented as of this encounter
--- OUTSIDE RECORDS SUMMARY | 2022-05-02 12:39 | XMS_ITS | Encounter Summary ---
:1950 Author Organization [place] Address [address] [facility] [place] [address] Care Team Providers Name Role Phone Anatoliy Jackson MD Primary Care Provider Heath More MD Unavailable Peter Gipson MD Unavailable Reason for Visit Rehab Therapy Cardiac Therapy - Closed Specialty Diagnoses / Procedures Referred By Contact Refer red To Contact CARDIAC REHAB Diagnoses CAD in [place] artery [facility] [address] [place] [address] Phone: Fax: Referral ID Status Reason Start Date Expiration Date Visits V isits Requested Authorized FR- CR Closed 04/16/2015 08/09/2015 36 36 ([id number]) Encounter Details Date Type Department Care Team Description 06/13/2015 Hospital Encounter [facility] Cardiac Jose Wilson MD [facility] [address] [place] [address] and Pulmonary 1, Rh Cardiac Rehab Rehabilitation [facility] [address] [facility] [address] [place] [address] Social History Tobacco Use [...] Coronary atherosclerosis of unspecified type of vessel, [place] or graft aspirin 325 MG tablet Take [...] Status post coronary angioplasty fluticasone (FLONASE) 50 [place] 1 spray into 0 10/10/2015 MCG/ACT nasal [...] [address] [place] [address] (Wo rk) 05/15/2022 Surgery Surgery Neo Torres MD BLEPHAROPLASTY BILATERAL [facility] & SURGEONS [facility] PTOSIS REPAIR BILATERAL [address] [place] [address] [place] [id number] [phone] (Wo rk) 06/25/2022 Ancillary Procedure Cardiology Kirk Silver MD [address] [place] [id number] (Wo rk) Scheduled Procedures Name Priority Associated [...] on filedocumented in this encounter Care Teams Hot Dip Galvanizer Relationship Specialty Start Date End Date Anatoliy Jackson MD PCP - General 05/14/12 Heath More PCP - Internal Medicine INTERNAL MEDICINE - 01/06/14 MD Andreas ENDOCRINOLOGY, [facility] [address] [facility] 180 [place] [address] Peter Gipson PCP - Urology 04/02/15 MD Jordan [facility] UROLOGY [address] [place] [address] 450 [place], [place] [phone] documented as of this encounter
--- OUTSIDE RECORDS SUMMARY | 2022-05-02 12:39 | XMS_ITS | Encounter Summary ---
:1950 Author Organization [place] Address [address] [facility] [place] [address] Care Team Providers Name Role Phone Anatoliy [place] MD Primary Care Provider Heath More MD Unavailable Peter Gipson MD Unavailable Reason for Visit Rehab Therapy Cardiac Therapy - Closed Specialty Diagnoses / Procedures Referred By Contact Refer red To Contact CARDIAC REHAB Diagnoses CAD in [place] artery [facility] [address] [place] [address] Phone: Fax: Referral ID Status Reason Start Date Expiration Date Visits V isits Requested Authorized FR- CR Closed 04/16/2015 08/09/2015 36 36 ([id number]) Encounter Details Date Type Department Care Team Description 07/09/2015 Hospital Encounter [facility] Cardiac Jose Wilson MD [facility] [address] [place] [address] and Pulmonary 1, Rh Cardiac Rehab Rehabilitation [facility] [address] [facility] [address] [place] [address] Social History Tobacco Use [...] Coronary atherosclerosis of unspecified type of vessel, [place] or graft aspirin 325 MG tablet Take [...] Status post coronary angioplasty fluticasone (FLONASE) 50 [place] 1 spray into 0 10/10/2015 MCG/ACT nasal [...] [address] [place] [address] (Wo rk) 05/15/2022 Surgery Surgery Neo Torres MD BLEPHAROPLASTY BILATERAL [facility], INTERNAL & SURGEONS PA PTOSIS REPAIR BILATERAL [address] [place] [address] [place] [id number] [phone] (Wo rk) 06/25/2022 Ancillary Procedure Cardiology Kirk Silver MD [address] [place] [id number] (Wo rk) Scheduled Procedures Name Priority Associated [...] in this encounter Care Teams Animal Shelter Worker Relationship Specialty Start Date End Date Anatoliy Jackson MD PCP - General 05/14/12 Heath More PCP - Internal Medicine INTERNAL MEDICINE - 01/06/14 MD Andreas ENDOCRINOLOGY, [facility] [address] [facility] 180 [place] [address] Peter Gipson PCP - Urology 04/02/15 MD Jordan [facility] UROLOGY [address] [place] [address] 450 [place], [place] [phone] documented as of this encounter
--- OUTSIDE RECORDS SUMMARY | 2022-05-02 12:39 | XMS_ITS | Encounter Summary ---
:1950 Author Organization [place] Address [address] [facility] [place] [address] Care Team Providers Name Role Phone Anatoliy [place] MD Primary Care Provider Heath More MD Unavailable Peter Gipson MD Unavailable Reason for Visit Rehab Therapy Cardiac Therapy - Closed Specialty Diagnoses / Procedures Referred By Contact Refer red To Contact CARDIAC REHAB Diagnoses CAD in [place] artery [facility] [address] [place] [address] Phone: Fax: Referral ID Status Reason Start Date Expiration Date Visits V isits Requested Authorized FR- CR Closed 04/16/2015 08/09/2015 36 36 ([id number]) Encounter Details Date Type Department Care Team Description 07/04/2015 Hospital Encounter [facility] Cardiac Jose Wilson MD [facility] [address] [place] [address] and Pulmonary 1, Rh Cardiac Rehab Rehabilitation [facility] [address] [facility] [address] [place] [address] Social History Tobacco Use [...] Coronary atherosclerosis of unspecified type of vessel, [place] or graft aspirin 325 MG tablet Take [...] Status post coronary angioplasty fluticasone (FLONASE) 50 [place] 1 spray into 0 10/10/2015 MCG/ACT nasal [...] [address] [place] [address] (Wo rk) 05/15/2022 Surgery Surgery Neo Torres MD BLEPHAROPLASTY BILATERAL [facility], [facility]NAL & SURGEONS PA PTOSIS REPAIR BILATERAL [address] [place] [address] [place] [id number] [phone] (Wo rk) 06/25/2022 Ancillary Procedure Cardiology Kirk Silver MD [address] [place] [id number] (Wo rk) Scheduled Procedures Name Priority Associated [...] on filedocumented in this encounter Care Teams Children Librarian Relationship Specialty Start Date End Date Anatoliy [place] MD PCP - General 05/14/12 Heath More PCP - Internal Medicine INTERNAL MEDICINE - 01/06/14 MD Andreas ENDOCRINOLOGY, ENDOCR[facility]AB[facility] [address] [facility] 180 [place] [address] Peter Gipson PCP - Urology 04/02/15 MD Jordan [facility] UROLOGY [address] [place] [address] 450 [place], [place] [phone] documented as of this encounter
--- OUTSIDE RECORDS SUMMARY | 2022-05-02 12:40 | XMS_ITS | Encounter Summary ---
:1950 Author Organization [place] Address [address] [facility] [place] [address] Care Team Providers Name Role Phone Anatoliy [place] MD Primary Care Provider Heath More MD Unavailable Peter Gipson MD Unavailable Reason for Visit Rehab Therapy Cardiac Therapy - Closed Specialty Diagnoses / Procedures Referred By Contact Refer red To Contact CARDIAC REHAB Diagnoses CAD in [place] artery [facility] [address] [place] [address] Phone: Fax: Referral ID Status Reason Start Date Expiration Date Visits V isits Requested Authorized FR- CR Closed 04/16/2015 08/09/2015 36 36 ([id number]) Encounter Details Date Type Department Care Team Description 05/30/2015 Hospital Encounter [facility] Cardiac Jose Wilson MD [facility] [address] [place] [address] and Pulmonary 1, Rh Cardiac Rehab Rehabilitation [facility] [address] [facility] [address] [place] [address] Social History Tobacco Use [...] Coronary atherosclerosis of unspecified type of vessel, [place] or graft aspirin 325 MG tablet Take [...] Status post coronary angioplasty fluticasone (FLONASE) 50 [place] 1 spray into 0 10/10/2015 MCG/ACT nasal [...] [address] [place] [address] (Wo rk) 05/15/2022 Surgery Surgery Neo Torres MD BLEPHAROPLASTY BILATERAL [facility], [facility] & SURGEONS PA PTOSIS REPAIR BILATERAL [address] [place] [address] [place] [address]85760 [phone] (Wo rk) 06/25/2022 Ancillary Procedure Cardiology Kirk Silver MD [address] [place] [id number] (Wo rk) Scheduled Procedures Name Priority Associated [...] on filedocumented in this encounter Care Teams Strategic Marketing Manager Relationship Specialty Start Date End Date Anatoliy Jackson MD PCP - General 05/14/12 Heath More PCP - Internal Medicine INTERNAL MEDICINE - 01/06/14 MD Andreas ENDOCRINOLOGY, ENDOCR[facility] [address] [facility] 180 [place] [address] Peter Gipson PCP - Urology 04/02/15 MD Jordan [facility] UROLOGY [address] [place] [address] 450 [place], [place] [phone] documented as of this encounter
--- OUTSIDE RECORDS SUMMARY | 2022-05-02 12:40 | XMS_ITS | Encounter Summary ---
:1950 Author Organization [place] Address [address] [facility] [place] [address] Care Team Providers Name Role Phone Anatoliy [place] MD Primary Care Provider Heath More MD Unavailable Peter Gipson MD Unavailable Encounter Details Date Type Department Care Team Description 04/03/2015 [facility] Heart Brenda Concepcion (coronary artery Clinic Anu Donnelly RN disease) (Primary Dx) [address] [facility] [address] [place] [address] Social History Tobacco Use Types Packs/Day Years Used Date Never Smoker Alcohol Use Standard Drinks/Week Comments Yes 0 (1 standard drink = 0.6 oz pure alcoho l) occasionally Sex Assigned at Date Recorded Male 03/12/2021 12:11 PM CDT documented as of this encounter Plan of Treatment Upcoming Encounters Date Type Specialty Care Team Description 05/15/2022 Hospital Encounter Surgery Singh Torres MD [facility] [address] [place] [id number] (Wo rk) 05/15/2022 Surgery Surgery Neo Torres MD BLEPHAROPLASTY BILATERAL [facility], INTERNAL & SURGEONS PA PTOSIS REPAIR BILATERAL [address] [place] [address] (Wo rk) 06/25/2022 Ancillary Procedure Cardiology Kirk Silver MD [address] [place] [address] (Wo rk) Scheduled Procedures Name Priority Associated [...] Coronary atherosclerosis of unspecified type of vessel, [place] or graft 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
--- OUTSIDE RECORDS SUMMARY | 2022-05-02 12:40 | XMS_ITS | Encounter Summary ---
:1950 Author Organization [place] Address [address] [place] [address] Care Team Providers Name Role Phone Anatoliy [place] MD Primary Care Provider Heath More MD Unavailable Peter Gipson MD Unavailable Reason for Visit Rehab Therapy Cardiac Therapy - Closed Specialty Diagnoses / Procedures Referred By Contact Refer red To Contact CARDIAC REHAB Diagnoses CAD in [place] artery [facility] [address] [place] [address] Phone: Fax: Referral ID Status Reason Start Date Expiration Date Visits V isits Requested Authorized FR- CR Closed 04/16/2015 08/09/2015 36 36 ([id number]) Encounter Details Date Type Department Care Team Description 06/06/2015 Hospital Encounter [facility] Cardiac Jose Wilson MD [facility] [address] [place] [address] and Pulmonary 1, Rh Cardiac Rehab Rehabilitation [facility] [address] [facility] [address] [place] [address] Social History Tobacco Use [...] Coronary atherosclerosis of unspecified type of vessel, [place] or graft aspirin 325 MG tablet Take [...] Status post coronary angioplasty fluticasone (FLONASE) 50 [place] 1 spray into 0 10/10/2015 MCG/ACT nasal [...] [address] [place] [address] (Wo rk) 05/15/2022 Surgery Surgery Neo Torres MD BLEPHAROPLASTY BILATERAL [facility], INTERNAL & SURGEONS PA PTOSIS REPAIR BILATERAL [address] [place] [address] [place] [id number] [phone] (Wo rk) 06/25/2022 Ancillary Procedure Cardiology Kirk Silver MD [address] [place] [id number] (Wo rk) Scheduled Procedures Name Priority Associated [...] on filedocumented in this encounter Care Teams Vegetable Handler Relationship Specialty Start Date End Date Anatoliy Jackson MD PCP - General 05/14/12 Heath More PCP - Internal Medicine INTERNAL MEDICINE - 01/06/14 MD Andreas ENDOCRINOLOGY, ENDOCRINE [facility] DIAB[facility]ES [facility] METABOLISM [facility] [address] [facility] 180 [place] [address] Peter Gipson PCP - Urology 04/02/15 MD Jordan [facility] UROLOGY [address] [place] [address] 450 [place], [place] [phone] documented as of this encounter
--- OUTSIDE RECORDS SUMMARY | 2022-05-02 12:40 | XMS_ITS | Encounter Summary ---
:1950 Author Organization [place] Address [address] [facility] [place] [address] Care Team Providers Name Role Phone Anatoliy Jackson MD Primary Care Provider Heath More MD Unavailable Peter Gipson MD Unavailable Reason for Visit Rehab Therapy Cardiac Therapy - Closed Specialty Diagnoses / Procedures Referred By Contact Refer red To Contact CARDIAC REHAB Diagnoses CAD in [place] artery [facility] [address] [place] [address] Phone: Fax: Referral ID Status Reason Start Date Expiration Date Visits V isits Requested Authorized FR- CR Closed 04/16/2015 08/09/2015 36 36 [id number]) Encounter Details Date Type Department Care Team Description 06/08/2015 Hospital Encounter [facility] Cardiac Jose Wilson MD [facility] [address] [place] [address] and Pulmonary 1, Rh Cardiac Rehab Rehabilitation [facility] [address] [facility] [address] [place] [address] Social History Tobacco Use [...] - - Weight 100.7 kg (222 lb) 06/08/2015 10:00 AM CDT Height 180.3 cm (5' 10.98) 06/08/2015 10:00 AM CDT Body Mass Index 30.98 06/08/2015 10:00 AM CDT documented in this encounter Medications at Time [...] Coronary atherosclerosis of unspecified type of vessel, yurok or graft aspirin 325 MG tablet Take [...] Status post coronary angioplasty fluticasone (FLONASE) 50 [place] 1 spray into 0 10/10/2015 MCG/ACT nasal [...] encounter Progress Notes Alvaro Hagen MD - 06/08/2015 11:32 AM CDT OUTPATIENT CARDIAC REHAB INDIVIDUALIZED TREATMENT PLAN 60 Day Individualized Treatment Plan Certified through this date: 07/25/15 Name: Nikita Anderson Date of : 1950 Date of Treatment: 04/09/15 Age: [age] year old Gender: male Treatment Diagnosis: Stent Secondary Treatment Diagnosis: Hospital Location: [facility] Discharge Date: 04/09/15 Outpatient CR Start Date: 05/21/15 Primary Physician: Dr. Anatoliy Jackson Surgeon: Print Binding And Finishing Worker: Dr. Aguiar Ejection Fraction: WNL THR (85% of age predicted max HR): 131.75 Risk Stratification: Moderate Assessment Assessment: 05/21/15 PT seen for initial session of cardiac rehab today. He noted chest tightess with 6 minute walk test(rated a 1 out of 10). Dr. Aguiar's office called to notify of symtpoms and BP values. BP high at rest and hypertensive with exercise, slow to recover. PT appears deconditioned, and has been sedentary. 05/28/2015 [facility] forwarde for medical surgery nurse's revoew/ PT has attended only 2 sessions [...] to closely monitor both BPs and Blood glucose. Patient and Program Goals Sessions Attended: 8 MET Goal: 5-6 (MET level adjusted on 06/08) Current MET Level: 4.4 Goal To be monitored and safely progess with exercise to assess for symptoms to figure of he needs another intervention. Target Date 07/09/15 Date Met Progress Towards Goal PT to report symptoms to therapist. 06/08: Patient reports he has not had anysymptoms in rehab since first session during six-min walk test. Patient reports he could be further challenged to better assess BP response to high level activity/exercise. Patient is very aware of anyunusual symptoms for him and keeps MD well informed of any issues. Goal Patient is interested in working towards weight loss - estimating he would like to be at or less than 200lbs. Target Date 07/09/15 Date Met Progress Towards Goal 06/08: Patient reports he is eating well, but not exercising outside of rehab. Pt was encouraged to do at least one additional day of exercise outside of rehab. Referrals Recommended Referrals recommended: Ankita Comments: PT [...] closely has patient progresses toward MET goal. Tobacco Tobacco: Never Quit date or planned quit date: Tobacco habit: Tobacco use per day: Interventions planned: Interventions completed: Stages of change: Target outcome goal: Complete Smoking Cessation: Tobacco comments: Stress / Psychosocial Reassessment Psycho-social Assessment: Re-assessment Patient admits to stress: Denies Current level of stress: Denies Coping skills: Patient Health Questionnaire-9 (PHQ-9) for Depression: 5-9 Minimal symptoms 10-14 Minor depression 15-19 Major depression, moderately severe > 20 Major depression, severe Completed PHQ-9 Score: 5 [facility] Function and Health Status Survey: A score of 4-5 indicates deficit for each functional health domain Completed Physical Fitness: 2 Feelings: 2 Daily Activities: 2 Social Activities: 1 Pain: 2 Change in Health: 2 Overall Health: 4 Social Support: 1 Quality of Life: 2 Stages of change: Maintenance Psychosocial Interventions planned: Psychosocial Interventions completed: Target outcome goal: Assessment for depression using PhQ-9 and [facility] questionnaires. Maximize coping skills and develop positive support system. Outcome Achieved Comments: 06/08: Discussed [place] and PHQ-9 scores. Patient feels he isn't that stressed since heis no longer in [employer]. Pt's curious about spouse support education - given contact info for chapito to set up consult for patient and . Nutrition Reassessment Dietary assessment: Re-assessment Rate Your Plate - Heart Survey: Scores range from 24 to 72. The higher the score the healthier the eating choices. 60 Overweight / Obesity: Yes Age: 64 Weight: 100.699 kg (222 lb) Height: 180.3 cm (5' 10.98) BMI (Calculated): 31.04 Goal weight: Prescribed diet: Other (Diabetic diet, counts carbohydrates) Follows prescribed diet: > 80% Stages of change to prescribed diet: Maintenance Nutrition interventions planned: Nutrition interventions completed: Target outcome goal: BMI < 25: Outcome Achieved Comments: 06/08: Reviewed RYP scores. Patient and feel they do well with diet as they have always watched sodium and carbs closely. Cholesterol Cholesterol: Labs Available Date: 04/09/15 Total Cholesterol: 132 HDL: 174 LDL: 59 Triglycerides: 174 Target outcome goal: Total cholesterol <150, HDL >40 M >50 F, LDL < 70, Trig < 150: Outcome Achieved Comments: Diabetes Management Diabetes Management: Type II Hb A1C: Pre-Exercise Blood Sugar: 227 Target outcome goal: Hb A1C < 7: Comments: On insulin, he has been told he falls in a jacob area, between type 1 and type 2. He wasdiagnosed at age 25 and has been on insulin since diagnois. Last HbA1c in chart was 9.7 on 06/07/14. Inactivity / Aerobic Exercise Reassessment Activity Assessment: Re-assessment Inactivity: Meets Physical Activity Goal Physical Activity Days per Week: 5 Aerobic Exercise Days per Week: 3 (rehab only) Aerobic Exercise Minutes per Day: 0 Stages of Change (Physical Activity): Action Stages [...] doesn't seem to be interested or motivated. INDIVIDUALIZED TREATMENT PLAN Monitored sessions scheduled: 18 Monitored sessions Attended: 8 Exercise Reassessment Met Level Achieved: 4.4 Resting HR: 59 bpm (HR and BPs from 06/06/15) Exercise HR: 100 bpm Post Exercise HR: 61 bpm Resting BP: 122/72 mmHg Exercise BP: 168/78 mmHg Post Exercise BP: 108/64 mmHg Pre SpO2: While Exercising SpO2: Post SpO2: Pre BG (if applicable): 227 mg/dL Post BG (if applicable): 46 mg/dL (PT assymptomatic, treated immediately with soda) RPE: ECG Rhythm: Sinus rhythm, Sinus bradycardia Ectopy: None Symptoms at home: Dyspnea Symptoms in rehab: Denies symptoms Limitations: Exercise Prescription Type: Aerobic exercise, Resistance training, Flexibility training Mode: Treadmill, Airdyne, Nustep, Weights Frequency: 3 daysweek Duration/Time: 30-45 min Age: 64 THR (85% of age predicted max HR): 131.75 RPE recommended: Other (see comments) (OMNI scale) Progression: 1/4 to 1/2 MET increase per HR, BP and RPE as well as per symptoms Angina with exercise: (unsure if today's symptoms were angina) Resistance Training: Yes Comments: PT has not had chest tightness in the past. Symptoms have been dyspnea. 06/08: pt reports he has not had any dyspnea or chest tightness in rehab since first day while doing walk test. Current Home Exercise Type of Exercise: None Frequency (days per week): Duration (minutes per session): Recommended Home Exercise Prescription Type of Exercise: Walking Frequency (days per week): on days off from rehab Duration (minutes per session): Intermittent RPE recommended: Other (see comments) (OMNI scale) Recommended THR: none given Comments/Exercise plan: Patient Education Education Recommended: Anatomy and Physiology of the Heart, Blood Pressure, Exercise Principles, Medication Overview, Nutrition Education Attended: Physician cosignature/electronic signature indicates approval of this ITP document. I have established, reviewed and made necessary changes to the individualized treatment plan and exercise prescription for this patient. EL SPRAYER documented in this encounter Plan of Treatment Upcoming Encounters Date Type Specialty Care Team Description 05/15/2022 Hospital Encounter Surgery Singh Torres MD [facility] [place] [address] [facility] [address] [place] [address] (Wo rk) 05/15/2022 Surgery Surgery Neo Torres MD BLEPHAROPLASTY BILATERAL [facility] [place] PTOSIS REPAIR BILATERAL [address] [place] [address] [place] [id number] (Wo rk) 06/25/2022 Ancillary Procedure Cardiology Kirk Silver MD [address] [place] [id number] (Wo rk) Scheduled Procedures Name Priority Associated [...] on filedocumented in this encounter Care Teams Pre Press Operator Relationship Specialty Start Date End Date Anatoliy Jackson MD PCP - General 05/14/12 Heath More PCP - Internal Medicine INTERNAL MEDICINE - 01/06/14 MD Andreas ENDOCRINOLOGY, [facility] [address] [place] [address] Peter Gipson PCP - Urology 04/02/15 MD Jordan [facility] [address] [place] [address] [address] [place], [place] [id number] documented as of this encounter
--- OUTSIDE RECORDS SUMMARY | 2022-05-02 12:40 | XMS_ITS | Encounter Summary ---
:1950 Author Organization [place] Address [address] [place] [address] Care Team Providers Name Role Phone Anatoliy Jackson MD Primary Care Provider Heath More MD Unavailable Peter Gipson MD Unavailable Reason for Referral - Closed Specialty Diagnoses / Procedures Referred By Contact Refer red To Contact Diagnoses CAD in [place] artery Nadia Pisano APRN NURSE TECHNICIAN [address] [place] [address] Referral ID Status Reason Start Date Expiration Date Visits Requ ested Visits Authorized [id number] Closed 06/17/2015 06/16/2016 1 1 Reason for Visit Reason Comments Heart Problem Hx CAD Rehab Therapy Cardiac Therapy - Closed Specialty Diagnoses / Procedures Referred By Contact Refer red To Contact CARDIAC REHAB Diagnoses CAD in [place] artery [facility] [address] [place] [place] [address] Phone: Fax: Referral ID Status Reason Start Date Expiration Date Visits V isits Requested Authorized FR- CR Closed 04/16/2015 08/09/2015 36 36 ([id number]) Encounter Details Date Type Department Care Team Description 04/18/2015 [facility] CAD in [place] artery [facility] Pisano Nadia Tapia, SURGERY TECH NURSE TECHNICIAN [address] [place] [address] [facility] [address] [facility] [address] [place] [address] Social History Tobacco Use Types [...] Sign Reading Time Taken Comments Blood Pressure 126/74 04/18/2015 12:26 PM CDT Pulse 52 04/18/2015 12:26 PM CDT Temperature - - Respiratory Rate - - Oxygen Saturation - - Inhaled Oxygen Concentration - - Weight 98.9 kg (218 lb) 04/18/2015 12:26 PM CDT Height 180.3 cm (5' 11) 04/18/2015 12:26 PM CDT Body Mass Index 30.4 04/18/2015 12:26 PM CDT documented in this encounter Progress Notes Norris Nadia Surjit, CALLIE NURSE TECHNICIAN - 04/18/2015 1:11 PM CDT HISTORY OF PRESENT ILLNESS: This is a delightful 64-year-old male who presents to [facility] today for a followup visit. He is a patient of Dr. Plummer and Dr. Aguiar's seen in our clinic for past medical history of: Coronary artery disease, hyperlipidemia and diabetes. Nikita has a history of coronary artery disease. He has known multivessel severe branch disease with preserved LV function. In the past, his anginal equivalent has been dyspnea on exertion and fatigue. Due to concern of progressive angina, he underwent coronary angiography and revascularization on 04/09/2015. He received a 3.0 x 34 mm drug-eluting stent to a mid-circumflex lesion, a 3.0 x 12 mm drug-eluting stent to an ostial circumflex lesion and 2.25 x 18 mm drug- eluting stent to an OM1 vessel. He was noted to have remaining severe distal right coronary artery and proximal PDA which is noted to be heavily calcified. He returns today for reassessment. Nikita tells me is doing well. He is unsure how much the previous interventions have helped his dyspnea and fatigue. He does feel that it minimally has improved his breathlessness. However, he has done little activity since he has been home from his coronary interventions. He is planning on a camping trip in [place] next week and starting cardiac rehabilitation later this week. He has no chest pain. He is still able to do his yard work but he does stop to rest due to breathlessness. He states this maybehas improved some. He denies palpitations or near-syncope. He occasionally gets intermittent lightheaded spells. Sometimes these are related to standing up quickly and other times they can just be spora dic during the day. It has been ongoing for about a year. PHYSICAL EXAMINATION: VITAL SIGNS: His blood pressure today is 126/74 with a heart rate of 52 beats per minute and is regular. LUNGS: Clear. His right radial puncture site without bleeding, hematoma or bruit. EXTREMITIES: He does have 1+ DP and PT noted bilaterally and no evidence of edema. IMPRESSION AND PLAN: 1. Coronary artery disease. Due to progressive limiting dyspnea on exertion and fatigue which has been his anginal equivalent, he recently underwent revascularization of his circumflex with 2 drug-eluting stents and his OM. He continues to have some mild dyspnea on exertion and fatigue that is somewhat better since his intervention. He will be starting cardiac rehab and [place] [facility] [place] He will carry his nitroglycerin with him and continue to take his medications as listed above. If he develops worsening symptoms, he will contact our office and likely will proceed with revas cularization of the remaining distal right coronary artery, proximal and PDA lesion. However, this would require rotablader procedure prior to stenting. I will tentatively set him up with Dr. Aguiar in2 months for further review. However, he will contact our office with worsening symptoms. 2. Treated hyperlipidemia with recent LDL level at goal. 3. Insulin-dependent diabetes. He does monitor his blood sugars 4 times a day. I would like Nikita to undergo a BMP prior to leaving the office today following his angiogram procedure. In the past, he has had some mildly elevated BUN levels. We will be in touch with him with the results over the phone. Thank you for allowing me to participate in this patient's care. NADIA PISANO APRN, BIANCA [place]: SS Name: NIKITA LIND Account: [id number] : 1950 Service Date: 04/18/2015 Document: [id number] Nadia Pisano APRN CNP - 04/18/2015 1:06 PM CDT HPI and Plan: #[id number] See dictation Orders Placed This Encounter Procedures ??? Basic metabolic panel ??? Follow-Up with Salesperson Jewelry No orders of the defined types were placed in this encounter. Medications Discontinued During This Encounter Medication Reason ??? aspirin 81 MG EC tablet Dose adjustment ??? clopidogrel (PLAVIX) 75 MG tablet Duplicate Encounter Diagnosis Name Primary? CAD in [place] artery CURRENT MEDICATIONS: Current Outpatient Prescriptions Medication Sig Dispense Refill ??? clopidogrel (PLAVIX) 75 MG tablet Take 1 tablet (75 mg) by mouth daily 90 tablet 3 ??? simvastatin (ZOCOR) 40 MG tablet Take 40 mg by mouth daily ??? fluticasone (FLONASE) 50 MCG/ACT nasal spray [place] 1 spray into both nostrils daily ??? cloNIDine (CATAPRES) 0.1 MG tablet [...] GABAPENTIN PO Take 300 mg by mouth At Bedtime ??? lisinopril-hydrochlorothiazide (PRINZIDE,ZESTORETIC) 20-12.5 MG per tablet [...] History Diagnosis Date ??? 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 Type II or unspecified type diabetes mellitus with neurological manifestations, not stated as uncontrolled(250.60) Abstracted 01/20/02 ??? Pure hypercholesterolemia Abstracted 01/20/02 ??? Unspecified essential hypertension ??? Cancer 1980 Melanoma ??? Coronary artery disease 07/2013, 12/2014 moderate to severe 3v CAD 12/2014 ??? Angina pectoris PAST SURGICAL HISTORY: Past Surgical History Procedure [...] Caffeine Concern No 2-3 cups daily ??? Weight Concern No ??? Special Diet Yes counts carbs, diabetic diet ??? Exercise No yardwork Social History Narrative Review of Systems: Skin: Positive for bruising Eyes: Positive for glasses ENT: Positive for postnasal drainage Respiratory: Positive for cough;dyspnea on exertion post nasal drip , Cardiovascular: fatigue;lightheadedness;dizziness;Positive for Gastroenterology: Negative Genitourinary: Positive for prostate problem;nocturia High PSA Musculoskeletal: Positive for foot pain;arthritis;neck pain Left elbow swelling, Right big toe feelsswollen and has pain Neurologic: Positive for numbness or tingling of hands Psychiatric: Negative Heme/Lymph/Imm: Positive for allergies RX Endocrine: Positive for diabetes Physical Exam: Vitals: BP 126/74 mmHg Pulse 52 Ht 1.803 m (5' 11) Wt 98.884 kg (218 lb) BMI 30.42 kg/m2 Constitutional: cooperative;in no acute distress Skin: warm and dry to the touch Head: normocephalic Eyes: pupils equal and round;sclera white ENT: no pallor or cyanosis Neck: JVP normal Chest: normal symmetry;normal respiratory excursion;clear to auscultation Cardiac: regular rhythm;normal S1 and S2 no presence of murmur Abdomen: abdomen soft Vascular: 2+ right radial cather insertion site c/d/i, no bleeding, no echymossis, good distal pulses and normal range of motion Extremities and Back: no edema trace ankle edema Neurological: affect appropriate, oriented to time, person and place;no gross motor deficits HEATHER Guerrero PA-C [address] [address] documented in this encounter Plan of Treatment Upcoming Encounters Date Type Specialty Care Team Description 05/15/2022 Hospital Encounter Surgery Singh Torres MD [facility] [address] [address] [place] [address] (Wo rk) 05/15/2022 Surgery Surgery Neo Torres MD BLEPHAROPLASTY BILATERAL [facility], INTER[facility] & SURGE[facility] [place] PTOSIS REPAIR BILATERAL [address] [place] [address] [place] [address] (Wo rk) 06/25/2022 Ancillary Procedure Cardiology Kirk Silver MD [address] [place] [id number] (Wo rk) Scheduled Procedures Name Priority Associated [...] Order S chedule Follow-Up with Referral Routine CAD in [place] artery Expec ambrosio: 06/17/2015 Salesperson Jewelry (Approximate), Expires: 2015 documented as of this encounter Results (ABNORMAL) Basic metabolic panel (04/18/2015 1:08 PM CDT) P athologist Signature Sodium 138 133 - 144 [place] mmol/L [facility] Potassium 4.7 3.4 - 5.3 [place] mmol/L [facility] Chloride 106 94 - 109 [place] mmol/L [facility] Carbon Dioxide 28 20 - 32 [place] mmol/L [facility] Anion Gap 4 3 - 14 [place] mmol/L [facility] Glucose 252 (H) 70 - 99 [place] mg/dL [facility] Urea Nitrogen 44 (H) 7 - 30 [place] mg/dL [facility] Creatinine 1.24 0.66 - [place] 1.25 mg/dL [facility] GFR Estimate 58 (L) >60 [place] mL/min/1.[address] Comment: Non GFR Calc GFR Estimate If Black 71 >60 mL/min/1.7m2 F [facility] Comment: GFR Calc Calcium 8.8 8.5 - 10.1 mg/dL [facility] Specimen Anatomical Collection Method Collection Time Receive d Time (Source) Location / / Volume Laterality Blood specimen 04/18/2015 1:08 PM 015 1:13 (specimen) CDT PM CDT Nadia E Pisano SURGERY TECH NURSE TECHNICIAN LAB - BLOOD ORDERABLES Performing Organization Address City/State/ZIP Code Phon e Number [place] [address] [place], [place] [address] [facility] [address] [place], [place] [address] [place] [address] documented in this encounter Visit Diagnoses Diagnosis CAD in [place] artery Coronary atherosclerosis of [place] coron micaela artery 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
--- OUTSIDE RECORDS SUMMARY | 2022-05-02 12:40 | XMS_ITS | Encounter Summary ---
:1950 Author Organization [place] Address [address] [facility] [place] [address] Care Team Providers Name Role Phone Anatoliy Jackson MD Primary Care Provider Heath More MD Unavailable Peter Gipson MD Unavailable Reason for Visit Reason Onset Date Comments Other 04/03/2015 Encounter Details Date Type Department Care Team Description 04/03/[address] [facility] Heart Brenda Concepcion RN Other Clinic [address] [place] [address] Social History Tobacco Use Types Packs/Day Years Used Date Never Smoker Alcohol Use Standard Drinks/Week Comments Yes 0 (1 standard drink = 0.6 oz pure alcoho l) occasionally Sex Assigned at Date Recorded Male 03/12/2021 12:11 PM CDT documented as of this encounter Miscellaneous Notes Telephone Encounter - Ariella Rivas, RN - 04/04/2015 1:[address] Aguiar spoke with Dr Gipson, urologist, and sent message - Spoke with Dr. Gipson. He advises waiting 6 months and rechecking PSA, and to go ahead with stenting of coronaries at this time. Pt is scheduled for heart cath with Dr Aguiar 04/09/15. JESUSavesCasandra Telephone Encounter - Brenda Concepcion RN - 04/03/2015 2:20 PM CDT Orders entered into [employer] for pt's coronary angiogram on 04/09/15. said he will be speaking to pt's urologist to make sure no procedures will be needed within next 6 months. I called pt to findout the information for his urologist. It is of [facility]. I called clinic to find out best way to reach . They said to call [phone], option 3 and he can be paged. He will be in clinic tomorrow. Will update . Chandana KELLY documented in this encounter Plan of Treatment Upcoming Encounters Date Type Specialty Care Team Description 05/15/2022 Hospital Encounter Surgery Singh Torres MD [facility] [address] [place] [address] (Wo rk) 05/15/2022 Surgery Surgery Neo Torres MD BLEPHAROPLASTY BILATERAL [facility], INTERNAL & [facility] [place] PTOSIS REPAIR BILATERAL [address] [place] [address] (Wo rk) 06/25/2022 Ancillary Procedure Cardiology iKrk Silver MD [address] [place] [address] (Wo rk) Scheduled Procedures Name Priority Associated [...] on filedocumented in this encounter Care Teams Nursing Service Administrator Relationship Specialty Start Date End Date Anatoliy Jackson MD PCP - General 05/14/12 Heath More PCP - Internal Medicine INTERNAL MEDICINE - 01/06/14 MD Andreas ENDOCRINOLOGY, ENDOCRINE [facility] [address] [address] Peter Gipson PCP - Urology 04/02/15 MD Jordan [facility] [address] [place] [address] [address] [place] [address] documented as of this encounter
--- OUTSIDE RECORDS SUMMARY | 2022-05-02 12:40 | XMS_ITS | Encounter Summary ---
:1950 Author Organization [place] Address [address] [facility] [place] [address] Care Team Providers Name Role Phone Anatoliy Jackson MD Primary Care Provider Heath More MD Unavailable Peter Gipson MD Unavailable Reason for Visit Rehab Therapy Cardiac Therapy - Closed Specialty Diagnoses / Procedures Referred By Contact Refer red To Contact CARDIAC REHAB Diagnoses CAD in [place] artery [facility] [address] [place] [address] Phone: Fax: Referral ID Status Reason Start Date Expiration Date Visits V isits Requested Authorized FR- CR Closed 04/16/2015 08/09/2015 36 36 ([id number]) Encounter Details Date Type Department Care Team Description 05/21/2015 Hospital Encounter [facility] Cardiac Jose Wilson MD [facility] [address] [place] [address] and Pulmonary 2, Rh Cardiac Rehab Rehabilitation [facility] [id number] [place] [address] [address] [place] [address] Social History Tobacco Use [...] - - Weight 101 kg (222 lb 9.6 oz) 05/21/2015 8:00 AM CDT Height 180.3 cm (5' 11) 05/21/2015 8:00 AM CDT Body Mass Index 31.05 05/21/2015 8:00 AM CDT documented in this encounter Medications [...] Coronary atherosclerosis of unspecified type of vessel, [place] or graft aspirin 325 MG tablet Take [...] Status post coronary angioplasty fluticasone (FLONASE) 50 [place] 1 spray into 0 10/10/2015 MCG/ACT nasal [...] documented as of this encounter Progress Notes Skylar Hamilton EP - 05/21/2015 11:25 AM CDT OUTPATIENT CARDIAC REHAB INITIAL EVALUATION / INDIVIDUALIZED TREATMENT PLAN Certified through this date: 06/19/15 Name: Nikita Anderson Date of : 1950 Date of Treatment: 04/09/15 Age: [age] year old Gender: male Treatment Diagnosis: Stent Secondary Treatment Diagnosis: Hospital Location: [facility] Discharge Date: 04/09/15 Outpatient CR Start Date: 05/21/15 Primary Physician: Dr. Anatoliy Jackson Surgeon: Repairer Sash And Door: Dr. Aguiar Ejection Fraction: WNL THR (85% of age predicted max HR): 131.75 Risk Stratification: Moderate I have established, reviewed and made necessary changes to the individualized treatment plan and exercise prescription for this patient. Physician Name (Printed): Date: Time: Physician Signature: X Assessment Assessment: 05/21/15 PT seen for initial session of cardiac rehab today. The patient's history and clinical status including hemodynamics and ECG were evaluated. The patient was assessed to be stable and appropriate to begin exercise. The patient's functional capacity and exercise prescription were det ermined by the completion of the 6 minute walk test. See results below. The patient was oriented to the program and equipment. Risk factor profile was completed. Goals and objectives were discussed. Henoted chest tightess with 6 minute walk test(rated a 1 out of 10). Dr. Aguiar's office called to notify of symtpoms and BP values. BP high at rest and hypertensive with exercise, slow to recover. PT appears deconditioned, and has been sedentary. Fair to good prognosis for reaching above goals. Skilled therapy is necessary in order to monitor CV response to exercise, to provide education on risk factors and behavior change counseling needed toachieve patient's goals. Plan to progress to 30-40 minutes of exercise prior to discharge from cardiac rehab. Initial THR of 20-30 beats above RHR; Effort rating of 4-6. Initiate muscle conditioning as appropriate. Provide risk factor education and behavior change counseling. Patient and Program Goals MET Goal: 4.5 to 5 Current MET Level: 3.9 Goal To be monitored and safely progess with exercise to assess for symptoms to figure of he needs another intervention. Target Date Date Met Progress Towards Goal PT to report symptoms to therapist. In the past, he has Referrals Recommended Referrals recommended: Comments: PT has had diabetes education in the past. He counts carbohydrates. Follow Up / On Going Support Provider follow-up needed on the following: Other (see comments) (PT may need another intervention) Comments Medical History Medical history: History of CAD with progressive and limiting dyspnea on exertion and exertional fatigue. He had angiography seveal months ago demonstrating 3 severe lesions. PT medically managed as PTwas going on a vaction to [place]. PT states that MD felt it was best to wait until he return from his trip. 3 stents were placed. He was told he may need another intervention. PT has an enlarged prostate. .. Past Medical History Diagnosis Date ??? 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 Type II or unspecified type diabetes mellitus with neurological manifestations, not stated as uncontrolled(250.60) Abstracted 01/20/02 ??? Pure hypercholesterolemia Abstracted 01/20/02 ??? Unspecified essential hypertension ??? Cancer 1980 Melanoma ??? Coronary artery disease 07/2013, 12/2014 moderate to severe 3v CAD 12/2014 ??? Angina pectoris Lead up symptoms: dyspnea Onset of symptoms: (several months) Signs and symptoms post hospitalization: SOB (has maybe improved slightly since prior to stent. ) Comments: PT had some chest tightness with 6 minute walk today. Rated a 1 out of 10. Therapist contacted Dr. Aguiar's office. Summary of Cath Report Left Main: LAD: Diagonal: LCx: OM: 70%,70-80% OM3,70-80% OM4 RCA: PDA: 70% Living Environment Living arrangement: house Occupation: (retired, does [employer] work on the side) Return to previous employment: Social Status: ASSESSMENTS Physical Assessment Incisions: Not applicable Edema: +1 Trace Right lung sounds: not assessed Left lung sounds: not assessed Muscle conditioning appropriate: Yes Comments: arthritis,left elbow swelling Pain Assessment Patient Currently in Pain: No Pain Location: Pain Rating: Pain Description: Pain Description Comment: Additional Pain Locations?: Pain Location 2: Pain Rating 2: Pain Location 3: Pain Rating 3: Pain Comments: Falls Screen Have you fallen 2 or more times in the past year? No Have you fallen and had an injury in the past year? Timed up and go score if applicable: Referral initiated to physical therapy: Comment: RISK FACTORS Hypertension Hypertension: Yes Currently taking antihypertensives? Yes Target outcome goal: BP< 140/90 or <130/80 if DM or CKD Outcome Not Achieved Hypertension comments: Tobacco Tobacco: Never Quit date or planned quit date: Tobacco habit: Tobacco use per day: Interventions planned: Interventions completed: Stages of change: Target outcome goal: Complete Smoking Cessation: Tobacco comments: Stress / Psychosocial Assessment Psycho-social Assessment: Initial Patient admits to stress: Denies Current level of stress: Denies Coping skills: Patient Health Questionnaire-9 (PHQ-9) for Depression: 5-9 Minimal symptoms 10-14 Minor depression 15-19 Major depression, moderately severe > 20 Major depression, severe Completed PHQ-9 Score: 5 [facility] Function and Health Status Survey: A [...] goal: Assessment for depression using PhQ-9 and [facility] questionnaires. Maximize coping skills and develop positive support system. Outcome Achieved Comments: Nutrition Assessment Dietary assessment: Initial Assessment Rate Your Plate - Heart Survey: Scores range from 24 to 72. The higher the score the healthier the eating choices. 60 Overweight / Obesity: Yes Age: 64 Weight: 100.971 kg (222 lb 9.6 oz) Height: 180.3 cm (5' 11) BMI (Calculated): 31.11 Goal weight: 90.719 kg (200 lb) Prescribed diet: Other (Diabetic diet, counts carbohydrates) Follows prescribed diet: > 80% Stages of change to prescribed diet: Maintenance Nutrition interventions planned: Nutrition interventions completed: Target outcome goal: BMI < 25: Outcome Achieved Comments: Cholesterol Cholesterol: Date: Total Cholesterol: HDL: LDL: Triglycerides: Target outcome goal: Total cholesterol <150, HDL >40 M >50 F, LDL < 70, Trig < 150: Comments: Diabetes Management Diabetes Management: Type 2 Hb A1C: Pre-Exercise Blood Sugar: 234 Target outcome goal: Hb A1C < 7: Comments: On insulin, he has been told he falls in a jacob area, between type 1 and type 2. He wasdiagnosed at age 25 and has been on insulin since diagnois. Inactivity / Aerobic Exercise Assessment Activity assessment: Initial Inactivity: Sedentary Physical activity days per week: 0 Aerobic exercise days per week: 0 Aerobic exercise minutes per day: 0 Stages of change (Physical Activity): Contemplation Stages of change (Aerobic Activity): Contemplation Target outcome goal: Aerobic Activity 30 minutes, 5 days per week = 150 minutes per week: Outcome Not Achieved Comments: PT has a TM at home, but it doesn't work INDIVIDUALIZED TREATMENT PLAN Monitored sessions scheduled: 18 Monitored sessions attended: 1 Exercise Assessment Initial 6 Minute Walk Distance: 1978 ft 6 Minute Walk Predicted (Male): 1809.88 6 Minute Walk Predicted (Female): 1443.56 Met Level Achieved: 3.9 Resting HR: 55 bpm Exercise HR: 94 bpm Post Exercise HR: 62 bpm Resting BP: 138/64 mmHg Exercise BP: 204/100 mmHg Post Exercise BP: 160/84 mmHg Pre SpO2: While Exercising SpO2: Post SpO2: Pre B mg/dL Post BG: RPE: 5 ECG Rhythm: Sinus rhythm Ectopy: PVCs (rare) Symptoms at home: Dyspnea Symptoms in rehab: Other (comments) (chest tightness with 6 minute walk) Limitations: Exercise Prescription Type: Aerobic exercise, Resistance training, Flexibility training Mode: Treadmill, Airdyne, Nustep, Weights Frequency: 3 daysweek Duration/Time: 15-30 min Age: 64 THR (85% of age predicted max HR): 131.75 RPE recommended: Other (see comments) (OMNI scale) Progression: 1/4 to 1/2 MET increase per HR, BP and RPE as well as per symptoms Angina with exercise: (unsure if today's symptoms were angina) Resistance Training: Yes Comments: PT has not had chest tightness in the past. Symptoms have been dyspnea. Current Home Exercise Type of Exercise: None Frequency (days per week): Duration (minutes per session): Recommended Home Exercise Prescription Type of Exercise: Walking Frequency (days per week): on days off from rehab Duration (minutes per session): Intermittent RPE recommended: Other (see comments) (OMNI scale) Recommended THR: none given Comments/Exercise Plan: Learning Assessment Learner: Patient Primary Language: Faroese Preferred Learning Style: Listening, Reading, Demonstration Barriers to Learning: No barriers noted Patient Education Education Recommended: Anatomy and Physiology of the Heart, Blood Pressure, Exercise Principles, Medication Overview, Nutrition documented in this encounter Plan of Treatment Upcoming Encounters Date Type Specialty Care Team Description 05/15/2022 Hospital Encounter Surgery Singh Torres MD [facility] [address] [place] [id number] (Wo rk) 05/15/2022 Surgery Surgery Neo Torres MD BLEPHAROPLASTY BILATERAL [place], INTERNAL & [facility] [place] PTOSIS REPAIR BILATERAL [address] [place] [id number] (Wo rk) 06/25/2022 Ancillary Procedure Cardiology Kirk Silver MD [address] [place] [address] (Wo rk) Scheduled Procedures Name Priority Associated [...] on filedocumented in this encounter Care Teams Collection Specialist Relationship Specialty Start Date End Date Anatoliy Jackson MD PCP - General 05/14/12 Heath More PCP - Internal Medicine INTERNAL MEDICINE - 01/06/14 MD Andreas ENDOCRINOLOGY, ENDOCRINE [facility]ABOL[facility] [address] [place] [phone] Peter Gipson PCP - Urology 04/02/15 MD Jordan [facility] [address] [place] [address] documented as of this encounter
--- OUTSIDE RECORDS SUMMARY | 2022-05-02 12:40 | XMS_ITS | Encounter Summary ---
:1950 Author Organization [place] Address [address] [place] [address] Care Team Providers Name Role Phone Anatoliy Jackson MD Primary Care Provider Heath More MD Unavailable Peter Gipson MD Unavailable Peter Aguiar MD Unavailable Peter Mcmullen MD Unavailable Fidencio Solis MD Unavailable Hallie Maldonado APRN CUSTOMER PRICING MANAGER Unavailable [phone] Giuliana Gomez APRN CUSTOMER PRICING MANAGER Unavailable Fidencio Solis MD Unavailable Giuliana Gomez APRN CUSTOMER PRICING MANAGER Unavailable Giuliana Gomez APRN CUSTOMER PRICING MANAGER Unavailable Fidencio Solis MD Unavailable Encounter Details Date Type Department Care Team Description 04/18/2015 Evaluation [facility] Heath Pisano, [place] CUSTOMER PRICING MANAGER [facility] [address] [address] [place] [address] [address] [place] [address] [phone] Social History Tobacco Use Types Packs/Day Years [...] [address] [place] [address] (Wo rk) 05/15/2022 Surgery Surgery Neo Torres MD BLEPHAROPLASTY BILATERAL [facility] IDS, INTERNAL & SURGEONS [place] PTOSIS REPAIR BILATERAL [address] [place] [address] (Wo rk) 06/25/2022 Ancillary Procedure Cardiology Kirk Silver MD [address] [place] [address] (Wo rk) Scheduled Procedures Name Priority Associated [...] filedocumented in this encounter Care Teams Design Technology Teacher Relationship Specialty Start Date End Date Anatoliy Jackson PCP - General 05/14/12 Heath More PCP - Internal Medicine INTERNAL MEDICINE - 01/06/14 MD Andreas ENDOCRINOLOGY, DIABETES ENDOCRINE [facility]OLISM [facility] [address] [place] [phone] Peter Gipson PCP - Urology 04/02/15 MD Jordan [facility] [address] [facility] [address] [place], [place] [id number] Peter Aguiar Assigned Heart and 06/01/20 12/15/20 MD Ishan Vascular Provider [address] [place], [place] [address] Peter Mcmullen Assigned Musculoskeletal 06/01/20 MD Mahendra Provider [address] [place], [place] [address] Fidencio Solis MD Assigned Heart and 12/16/20 02/21/[address], Vascular Provider [address] [place] [address] Hallie Maldonado, Assigned Heart and 02/22/2105/18 [place] CUSTOMER PRICING MANAGER Vascular Provider [address] [place] [address] Giuliana Gomez Assigned Heart and 05/19/2106/15/21 A, [employer] [place] CUSTOMER PRICING MANAGER Vascular Provider [address] [place] [address] Fidencio Solis MD Assigned Heart and 06/16/21 06/29/[address], Vascular Provider [address] [place] [address] Giuliana Gomez Assigned Heart and 06/30/21 A, [place] [place] CUSTOMER PRICING MANAGER Vascular Provider [address] [place] [address] Giuliana Gomez Nurse Practitioner Cardiovascular Disease 2 A, [place] CUSTOMER PRICING MANAGER [address] [place] [address] Fidencio Solis MD MD Cardiovascular Disease 08/21/21 [address] [facility] [address] [place] [address] documented as of this encounter
--- OUTSIDE RECORDS SUMMARY | 2022-05-02 12:40 | XMS_ITS | Encounter Summary ---
:1950 Author Organization [place] Address [address] [facility] [place] [address] Care Team Providers Name Role Phone Anatoliy Jackson MD Primary Care Provider Heath More MD Unavailable Peter Gipson MD Unavailable Reason for Referral Rehab Therapy Cardiac Therapy - Closed Specialty Diagnoses / Procedures Referred By Contact Refer red To Contact CARDIAC REHAB Diagnoses CAD in [place] artery [facility] [address] [place] [address] Phone: Fax: Referral ID Status Reason Start Date Expiration Date Visits V isits Requested Authorized [facility]- CR Closed 04/16/2015 08/09/2015 36 36 ([id number]) Reason for Visit Reason Onset Date Comments Clinic Care Coordination - Follow-up 04/10/2015 Pos t PCI follow up Encounter Details Date Type Department Care Team Description 04/10/2015 Telephone [facility] Yolanda, Clinic Car [facility] Anu Pryor PA-C Coordination - [address] [facility] Luis Enrique Follow-up (Post PCI [address] follow up) [place] [address] Social History Tobacco Use [...] this encounter Miscellaneous Notes Telephone Encounter - Karoline Guerrero PA-C - 04/10/2015 9:53 AM CDT No answer. Left message to call Dr Aguiar and Dr Plummer's RN team with questions/concerns and that he needs to follow up in ~ 1 week. Scheduling # given and order placed. Will also message scheduling. Karoline Guerrero PA-C documented in this encounter Plan of Treatment Upcoming Encounters Date Type Specialty Care Team Description 05/15/2022 Hospital Encounter Surgery Singh Torres MD [facility] [address] [place] [address] (Wo rk) 05/15/2022 Surgery Surgery Neo Torres MD BLEPHAROPLASTY BILATERAL [place] [facility] IDS, INTERNAL & SURGEONS [place] PTOSIS REPAIR BILATERAL [address] [place] [id number] (Wo rk) 06/25/2022 Ancillary Procedure Cardiology Kirk Silver MD [address] [place] [id number] (Wo rk) Scheduled Procedures Name Priority Associated [...] S chedule Follow-Up with Cardiac Referral Routine CAD in [place] erick ry Expected: 04/16/2015 [facility] (Angelica munoz), Expires: Provider 04/09/2017 documented as of this encounter Visit Diagnoses Diagnosis CAD in [place] artery - Primary Coronary atherosclerosis of [place] coron micaela artery 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
--- OUTSIDE RECORDS SUMMARY | 2022-05-02 12:40 | XMS_ITS | Encounter Summary ---
:1950 Author Organization [employer] Address [address] [facility] [place] [address] Care Team Providers Name Role Phone Anatoliy Jackson MD Primary Care Provider Heath More MD Unavailable Peter Gipson MD Unavailable Reason for Visit Reason Onset Date Comments Results 04/18/2015 [facility] 04-18-15 Encounter Details Date Type Department Care Team Description 04/18/2015 Telephone [facility] Nadia Pisano Re sults ([facility] 04-18-15) [address] [place], [place] [address] [address] [place] [address] [place], [place] [phone] [address] (Work) [phone] Social History Tobacco Use Types Packs/Day Years [...] Telephone Encounter - Dee Wilkes RN - 04/24/2015 1:22 PM CDT Pt returned call. Reviewed BMP and January's recommendations. Patient had no questions. Snow KELLY 09:18 AM Telephone Encounter - Dee Wilkes RN - 04/19/2015 5:34 PM CDT Left message for pt to return call to review BMP from 04-18-15 and January's recommendations. Snow KELLY 5:35 PM Telephone Encounter - Nadia Pisano, CALLIE VALENZUELA - 04/18/2015 4:43 PM CDT BUN elevated with normal Cr. Glucose high. Pls call to review. No change in management for HUSEYIN Koo documented in this encounter Plan of Treatment Upcoming Encounters Date Type Specialty Care Team Description 05/15/2022 Hospital Encounter Surgery Singh Torres MD [facility] [address] [place] [address] (Wo rk) 05/15/2022 Surgery Surgery Neo Torres MD BLEPHAROPLASTY BILATERAL [place] [facility] IDS, INTERNAL & SURGEONS PA PTOSIS REPAIR BILATERAL [address] [place] [id number] (Wo rk) 06/25/2022 Ancillary Procedure Cardiology Kirk Silver MD [address] [place] [id number] (Wo rk) Scheduled Procedures Name Priority Associated [...] on filedocumented in this encounter Care Teams Air Conditioning Supervisor Relationship Specialty Start Date End Date Anatoliy Jackson MD PCP - General 05/14/12 Heath More PCP - Internal Medicine INTERNAL MEDICINE - 01/06/14 MD Andreas ENDOCRINOLOGY, ENDOCRINE CL[facility] OF DIABETES & METABOLISM [facility] [address] [address] Peter Gipson PCP - Urology 04/02/15 MD Jordan [facility] UR[facility]Y [address] [place] [id number] documented as of this encounter
--- OUTSIDE RECORDS SUMMARY | 2022-05-02 12:40 | XMS_ITS | Encounter Summary ---
:1950 Author Organization [place] Address [address] [place] [address] Care Team Providers Name Role Phone Anatoliy Jackson MD Primary Care Provider Heath More MD Unavailable Peter Gipson MD Unavailable Encounter Details Date Type Department Care Team Description 04/18/2015 [facility] CAD in [place] artery [address] [place] [address] Social History Tobacco Use [...] [address] [place] [id number] (Wo rk) 05/15/2022 Surgery Surgery Neo Torres MD BLEPHAROPLASTY BILATERAL [facility] [place] PTOSIS REPAIR BILATERAL [address] [place] [address] (Wo rk) 06/25/2022 Ancillary Procedure Cardiology Kirk Silver MD [address] [place] [address] (Wo rk) Scheduled Procedures Name Priority Associated [...] Associated Diagnosis Comme nts BASIC METABOLIC Routine 04/18/2015 1:08 PM CAD in [place] arter y Results for this PANEL CDT procedure are i n the results section. documented in this encounter Results (ABNORMAL) Basic metabolic panel (04/18/2015 1:08 PM CDT) athologist Signature Sodium 138 133 - 144 [place] mmol/L [facility] Potassium 4.7 3.4 - 5.3 [place] mmol/L [facility] Chloride 106 94 - 109 [place] mmol/L [facility] Carbon Dioxide 28 20 - 32 [place] mmol/L [facility] Anion Gap 4 3 - 14 [place] mmol/L [facility] Glucose 252 (H) 70 - 99 [place] mg/dL [facility] Urea Nitrogen 44 (H) 7 - 30 [place] mg/dL [facility] Creatinine 1.24 0.66 - [place] 1.25 mg/dL [facility] GFR Estimate 58 (L) >60 [place] mL/min/1.[address] Comment: Non GFR Calc GFR Estimate If Black 71 >60 mL/min/1.7m2 F [facility] Comment: GFR Calc Calcium 8.8 8.5 - 10.1 mg/dL [facility] Specimen Anatomical Collection Method Collection Time Receive d Time (Source) Location / / Volume Laterality Blood specimen 04/18/2015 1:08 PM 015 1:13 (specimen) CDT PM CDT Nadia Pisano TABLE GAMES FLOOR SUPERVISOR FORESTRY AND WILDLIFE MANAGER LAB - BLOOD ORDERABLES Performing Organization Address City/State/ZIP Code Phon e Number [place] [address] [address] [place], [place] [address] [facility] [address] [place], [place] [address] [facility] [phone] documented in this encounter Visit Diagnoses Diagnosis CAD in [place] artery Coronary atherosclerosis of [place] coron [place]ica[place] artery 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 [address] [place] [address] Peter Gipson PCP - Urology 04/02/15 MD Jordan [facility] [address] [place] [address] [id number] documented as of this encounter
--- OUTSIDE RECORDS SUMMARY | 2022-05-02 12:40 | XMS_ITS | Encounter Summary ---
:1950 Author Organization [place] Address [address] [facility] [place] [address] Care Team Providers Name Role Phone Anatoliy Jackson MD Primary Care Provider Heath More MD Unavailable Peter Gipson MD Unavailable Reason for Visit Rehab Therapy Cardiac Therapy - Closed Specialty Diagnoses / Procedures Referred By Contact Refer red To Contact CARDIAC REHAB Diagnoses CAD in [place] artery [facility] [address] [place] [address] Phone: Fax: Referral ID Status Reason Start Date Expiration Date Visits V isits Requested Authorized FR- CR Closed 04/16/2015 08/09/2015 36 36 ([id number]) Encounter Details Date Type Department Care Team Description 05/29/2015 Hospital Encounter [facility] Cardiac Jose Wilson MD [facility] [address] [place] [address] and Pulmonary 2, Rh Cardiac Rehab Rehabilitation [facility] [id number] [place] [address] [address] [place] [address] Social History Tobacco Use [...] Coronary atherosclerosis of unspecified type of vessel, [place] or graft aspirin 325 MG tablet Take [...] Status post coronary angioplasty fluticasone (FLONASE) [address] 1 spray into 0 10/10/2015 MCG/ACT nasal [...] [address] [place] [id number] (Wo rk) 05/15/2022 Surgery Surgery Neo Torres MD BLEPHAROPLASTY BILATERAL [facility] & SURGEONS [place] PTOSIS REPAIR BILATERAL [address] [place] [address] [place] [id number] [phone] (Wo rk) 06/25/2022 Ancillary Procedure Cardiology Kirk Silver MD [address] [place] [id number] (Wo rk) Scheduled Procedures Name Priority Associated [...] on filedocumented in this encounter Care Teams Functional Director Relationship Specialty Start Date End Date Anatoliy Jackson MD PCP - General 05/14/12 Heath More PCP - Internal Medicine INTERNAL MEDICINE - 01/06/14 MD Andreas ENDOCRINOLOGY, ENDOCRINE [facility] OF DIABETES [facility] METABOLISM [facility] [address] [facility] [address] [place] [address] Peter Gipson PCP - Urology 04/02/15 MD Jordan [facility] [address] [place] [address] [address] [place], [place] [id number] documented as of this encounter
--- OUTSIDE RECORDS SUMMARY | 2022-05-02 12:40 | XMS_ITS | Encounter Summary ---
:1950 Author Organization [place] Address [address] [place] [address] Care Team Providers Name Role Phone Anatoliy Jackson MD Primary Care Provider Heath More MD Unavailable Peter Gipson MD Unavailable Reason for Visit Reason Onset Date Comments Other 05/21/2015 Encounter Details Date Type Department Care Team Description 05/21/2015 Telephone [facility] Brenda Concepcion RN Other Clinic [address] [place] [address] Social History Tobacco Use Types [...] this encounter Miscellaneous Notes Telephone Encounter - Brenda Concepcion RN - 05/24/2015 9:28 AM CDT I called pt and let him know that would like for him to start on imdur 30 mg daily. Pt will keep OV with for 06/12 and is aware to call if his chest discomfort does not improve with the imdur or if it becomes more frequent, severe, or prolonged. Chandana KELLY Telephone Encounter - Hyacinth Plummer DO - 05/23/2015 4:39 PM CDT Put him on imdur 30mg daily Telephone Encounter - Brenda Concepcion RN - 05/21/2015 1:07 PM CDT I received call from Skylar at [facility] cardiac rehab stating pt had his first session today. He reported chest pressure and tightness of a 1-2/10 after his 6 minute walk test. His bp did reach 204/100 with the 6 minute walk test. After 5 minutes of rest his bp decreased to 160/84 and his pressure resolved. Pt had coronary angiogram on 04/09/15 and had JAVIER to OM2, mid-LCx, and ostial LCx. 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 At that time it looks like he reported that he had not noticed much improvement in his breathlessness with activity. I called pt to get update on how heis feeling. He said he just got back from a 3 week vacation in [place] and during that trip he did several hikes that were each around 4-5 miles and had some elevation. He did notice, especially with the beginning of the hikes, and with the more strenuous hikes that involved elevation, that he did have a few brief episodes of chest tightness of 1-2/10 that resolved with rest. He did not take his nitro at all on his trip. Pt said he does still have some occasional shortness of breath with activity too.He denied having any increased fatigue. He does not have a bp cuff at home so he does not know what his bps have been running. He said he has had a couple of brief episodes of lightheadedness so he is not sure if it has been running low. I told pt that it was actually running high at rehab today, especially when he exerted himself. is out of the office this week so will send an update to to see what recommendations she has for pt at this time. I told pt if he starts to have more frequent or prolonged episodes of chest tightness he needs to call with an update. Chandana KELLY documented in this encounter Plan of Treatment Upcoming Encounters Date Type Specialty Care Team Description 05/15/2022 Hospital Encounter Surgery Singh Torres MD [facility] [address] [place] [address] (Wo rk) 05/15/2022 Surgery Surgery Neo Torres MD BLEPHAROPLASTY BILATERAL [place] [facility], [facility] & [facility]GE[facility] PTOSIS REPAIR BILATERAL [address] [place] [phone] (Wo rk) 06/25/2022 Ancillary Procedure Cardiology Kirk Silver MD [address] [place] [id number] (Wo rk) Scheduled Procedures Name Priority Associated [...] Coronary atherosclerosis of unspecified type of vessel, [place] or graft 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
--- OUTSIDE RECORDS SUMMARY | 2022-05-02 12:40 | XMS_ITS | Encounter Summary ---
:1950 Author Organization [place] Address [address] [facility] [place] [address] Care Team Providers Name Role Phone Anatoliy Jackson MD Primary Care Provider Heath More MD Unavailable Peter Gipson MD Unavailable Encounter Details Date Type Department Care Team Description 04/18/2015 Telephone [facility] Heath Pisano APRN CNP [facility]-[address] [address] [place] [address] [facility] [place] [address] [phone] Social History Tobacco Use Types Packs/Day Years [...] this encounter Miscellaneous Notes Telephone Encounter - Nadia Pisano APRN CNP - 04/18/2015 1:12 PM CDT Saw nikita in f/u today post PCI. Still with mild GRADY/fatigue. He is planning trip next week and prefers continued medical management at this time Will notify our clinic with worsening symptoms in which PTCRA/PCI of distal RCA/PDA possible. He is planning on seeing dr santos for review in 2 months. Thanks, JS documented in this encounter Plan of Treatment Upcoming Encounters Date Type Specialty Care Team Description 05/15/2022 Hospital Encounter Surgery Singh Torres MD [facility] [address] [place] [address] (Wo rk) 05/15/2022 Surgery Surgery Neo Torres MD BLEPHAROPLASTY BILATERAL [facility], INTERNAL & [facility] PTOSIS REPAIR BILATERAL [address] [place] [address] (Wo rk) 06/25/2022 Ancillary Procedure Cardiology Kirk Silver MD [address] [place] [address] (Wo rk) Scheduled Procedures Name Priority Associated [...] on filedocumented in this encounter Care Teams Automotive Detailer Relationship Specialty Start Date End Date Anatoliy Jackson MD PCP - General 05/14/12 Heath More PCP - Internal Medicine INTERNAL MEDICINE - 01/06/14 MD Andreas ENDOCRINOLOGY, ENDOCRINE CLINIC OF DIABETES & METABOLISM [facility] [address] [facility] [address] [place] [id number] Peter Gipson PCP - Urology 04/02/15 MD Jordan [facility] [address] [place] [address] [address] [place] [address] documented as of this encounter
--- OUTSIDE RECORDS SUMMARY | 2022-05-02 12:40 | XMS_ITS | Encounter Summary ---
:1950 Author Organization [facility] Address [address] [place] [address] Care Team Providers Name Role Phone Anatoliy Jackson MD Primary Care Provider Heath More MD Unavailable Anna Gipson MD Unavailable Encounter Details Date Type Department Care Team Description 04/09/2015 Hospital Encounter [facility] Anna Aguiar Pos tsurgical percutaneous transluminal coronary angioplasty status (Primary Dx); [facility] MD Ishan Angina pectoris (H); [address] CAD (coronary artery disease ); [address] Abnormal nuclear stress test; [place] [address] Status post coronary angioplasty [id number] Social History Tobacco Use Types Packs/Day [...] Reading Time Taken Comments Blood Pressure 132/67 04/09/2015 4:00 PM CDT Pulse - - Temperature - - Respiratory Rate 16 04/09/2015 2:15 PM CDT Oxygen Saturation 100% 04/09/2015 4:00 PM CDT Inhaled Oxygen Concentration - - Weight 99.9 kg (220 lb 3.2 oz) 04/09/2015 6:49 AM CDT Height 180.3 cm (5' 11) 04/09/2015 6:49 AM CDT Body Mass Index 30.71 04/09/2015 6:49 AM CDT documented in this encounter Discharge Instructions Discharge InstructionsDebra Mccurdy RN - 04/09/2015 12:36 PM CDT Gave Understanding Artery Disease book. Given STENT booklet and cards. Going Home after an Angioplasty or Stent Placement (Cardiac) Patient Name: Nikita Anderson Date of Procedure: April 09, 2015 Doctor: Cosme After you go home: ?? Have an adult stay with you for 24 hours. ?? Drink plenty of fluids. ?? You may eat your normal diet, unless your doctor tells you otherwise. ?? For 24 hours: ?? Relax and take it easy. ?? Do NOT smoke. ?? Do NOT make any important or legal decisions. ?? Do NOT drive or operate machines at home or at work. ?? Do NOT drink alcohol. ?? Remove the Band-Aid after 24 hours. If there is minor oozing, apply another Band-aid and remove it after 12 hours. ?? For 2 days, do NOT have sex or do any heavy exercise. ?? Do NOT take a bath, or use a hot tub or pool for at least 3 days. You may shower. Care of wrist or arm site It is normal to have soreness at the puncture site and mild tingling in your hand for up to 3 days. ?? For 2 days, do not use your hand or arm to support your weight (such as rising from a chair) or bend your wrist (such as lifting a garage door). ?? For 2 days, do not lift more than 5 pounds or exercise your arm (tennis, golf or bowling). If you start bleeding from the site in your arm: ?? Sit down and press firmly on the site with your fingers for 10 minutes. Call your doctor as soon as you can. ?? If the bleeding stops, sit still and keep your wrist straight for 2 hours. Medicines ?? If you have started taking Plavix or Effient, do not stop taking it until you talk to your heart doctor (insurance advisor). ?? If you are on metformin (Glucophage), do not restart it until you have blood tests (within 2 to 3days after discharge). When your doctor tells you it is safe, you may restart the metformin. ?? If you have stopped any other medicines, check with your nurse or provider about when to restart them. Call 911 right away if you have bleeding that is heavy or does not stop. Call your doctor if: ?? You have a large or growing hard lump around the site. ?? The site is red, swollen, hot or tender. ?? Blood or fluid is draining from the site. ?? You have chills or a fever greater than 101??F (38??C). ?? Your leg or arm feels numb or cool. ?? You have hives, a rash or unusual itching. [facility]: [phone] (7 days a week) documented in this encounter Medications at Time of Discharge Medication Sig Dispensed Refills Start Date End Date ONE TOUCH ULTRA TEST as directed 100 0 06/22/2006 STRPIndications: Type II or unspecified type diabetes mellitus without mention of complication, not stated as uncontrolled SYRINGE B-D MICRO FINE as directed 100 0 09/18/20042 CC SYRINGES amLODIPine (NORVASC) 5 MG Take 1 tablet (5 90 tablet 3 12/0909/18/2015 tabletIndications: mg) by mouth daily Coronary atherosclerosis of unspecified type of vessel, [place] or graft aspirin 325 MG tablet Take 81 mg by mouth 0 02/18/2021 daily aspirin 81 MG EC Take 1 tablet (81 90 tablet 3 04/10/2015 0 04/18/2015 tabletIndications: mg) by mouth daily Postsurgical percutaneous Start tomorrow transluminal coronary morning. angioplasty status, CAD (coronary artery disease), Status post coronary angioplasty carvedilol (COREG) 12.5 Take 1 tablet (12.5 [...] (coronary artery disease), Status post coronary angioplasty clopidogrel (PLAVIX) 75 Take 1 tablet (75 90 tablet 3 01/0404/18/2015 MG tabletIndications: mg) by mouth daily Status post coronary angiogram, Coronary atherosclerosis of unspecified type of vessel, [place] or graft fluticasone (FLONASE) 50 [place] 1 spray into 0 10/10/2015 MCG/ACT nasal [...] documented as of this encounter Progress Notes Zoë Lerner RN - 04/09/2015 4:13 PM CDT Site is flat, no bleed/hematoma, IV discontinued, patient dressed, patient escorted to discharge door and 's car. Debra Mccurdy RN - 04/09/2015 2:44 PM CDT No c/o post PTCA, see flow sheet. Up to BR x 2. here. Ate. Debra Mccurdy RN - 04/09/2015 8:24 AM CDT 0745-Heart tones normal, no femoral bruit. here. Explained pre cath routines and answered questions. Resting in bed with call light in reach. documented in this encounter Plan of Treatment Upcoming Encounters Date Type Specialty Care Team Description 05/15/2022 Hospital Encounter Surgery Singh Torres MD [facility] [address] [place] [id number] (Wo rk) 05/15/2022 Surgery Surgery Neo Torres MD BLEPHAROPLASTY BILATERAL [facility] PTOSIS REPAIR BILATERAL [address] [place] [id number] (Wo rk) 06/25/2022 Ancillary Procedure Cardiology Kirk Silver MD [address] [place] [id number] (Wo rk) Scheduled Procedures Name Priority Associated [...] Date/Time Associated Diagnosis Comme nts BASIC METABOLIC PANEL Timed 04/09/2015 2:28 Postsurgical Res ults for this PM CDT percutaneous procedure are i n transluminal the results coronary angioplasty section . status EKG 12-LEAD, TRACING STAT 04/09/2015 12:04 Postsurgical Res ults for this ONLY PM CDT percutaneous procedure are i n transluminal the results coronary angioplasty section . status CAD (coronary artery disease) Status post coronary angioplasty GLUCOSE BY METER Routine 04/09/2015 11:50 Postsurgical Results for this AM CDT percutaneous procedure are i n transluminal the results coronary angioplasty section . status CORONARY ANGIOGRAPHY Routine 04/09/2015 11:13 Angina pec toris (H) Results for this ADULT ORDER AM CDT CAD (coronary artery procedu re are in disease) the results Abnormal nuclear section. stress test ACTIVATED CLOTTING Routine 04/09/2015 10:53 Postsurgical Resul ts for this TIME POCT AM CDT percutaneous procedure are i n transluminal the results coronary angioplasty section . status ACTIVATED CLOTTING Routine 04/09/2015 10:36 Postsurgical Resul ts for this TIME POCT AM CDT percutaneous procedure are i n transluminal the results coronary angioplasty section . status ACTIVATED CLOTTING Routine 04/09/2015 10:26 Postsurgical Resul ts for this TIME POCT AM CDT percutaneous procedure are i n transluminal the results coronary angioplasty section . status ACTIVATED CLOTTING Routine 04/09/2015 9:59 Postsurgical Result s for this TIME POCT AM CDT percutaneous procedure are i n transluminal the results coronary angioplasty section . status ACTIVATED CLOTTING Routine 04/09/2015 9:42 Postsurgical Result s for this TIME POCT AM CDT percutaneous procedure are i n transluminal the results coronary angioplasty section . status ACTIVATED CLOTTING Routine 04/09/2015 9:23 Postsurgical Result s for this TIME POCT AM CDT percutaneous procedure are i n transluminal the results coronary angioplasty section . status INR STAT 04/09/2015 7:00 Angina pectoris (H) Resul ts for this AM CDT procedure are i n the results section. PARTIAL THROMBOPLASTIN STAT 04/09/2015 7:00 Angina pectoris (H) Results for this TIME AM CDT procedure are i n the results section. LIPID REFLEX TO DIRECT STAT 04/09/2015 7:00 Angina pectoris (H) Results for this LDL PANEL AM CDT procedure are i n the results section. BASIC METABOLIC PANEL STAT 04/09/2015 7:00 Angina pectoris (H) Results for this AM CDT procedure are i n the results section. CBC WITH PLATELETS STAT 04/09/2015 7:00 Angina pectoris (H) Results for this AM CDT procedure are i n the results section. documented in this encounter Results (ABNORMAL) Basic metabolic panel (04/09/2015 2:28 PM CDT) P athologist Signature Sodium 140 133 - 144 [place] mmol/L [facility] Potassium 4.7 3.4 - 5.3 [place] mmol/L [facility] Chloride 108 94 - 109 [place] mmol/L [facility] Carbon Dioxide 27 20 - 32 [place] mmol/L [facility] Anion Gap 5 3 - 14 [place] mmol/L [facility] Glucose 194 (H) 70 - 99 [place] mg/dL [facility] Urea Nitrogen 42 (H) 7 - 30 [place] mg/dL [facility] Creatinine 1.17 0.66 - [place] 1.25 mg/dL [facility] GFR Estimate 62 >60 [place] mL/min/1.[address] Comment: Non GFR Calc GFR Estimate If Black 76 >60 mL/min/1.7m2 F [facility] Comment: GFR Calc Calcium 7.9 (L) 8.5 - 10.1 mg/dL [facility] Specimen Anatomical Collection Method Collection Time Receive d Time (Source) Location / / Volume Laterality Blood specimen 04/09/2015 2:28 PM 015 2:33 (specimen) CDT PM CDT Anna Aguiar MD LAB - BLOOD ORDERABLES Performing Organization Address City/State/ZIP Code Phon e Number [facility] [address] [place] [address] [facility] [address] [place] [address], U [phone] EKG 12-lead, tracing only (04/09/2015 12:04 PM CDT) Patholo gist Method Time Signature Interpretation ECG Click View RADIOLOGY Image link RESULTS to view waveform and result Specimen (Source) Anatomical Collection Method Collection Time Re ceived Time Location / / Volume Laterality 04/09/2015 12:04 PM CDT Anna Aguiar MD ECG ORDERABLES Performing Organization Address City/State/ZIP Code Phon e Number RADIOLOGY RESULTS (ABNORMAL) Glucose by meter (04/09/2015 11:50 AM CDT) P athologist Signature Glucose 190 (H) 70 - 99 POINT OF CARE mg/dL TEST, GLUCOSE Specimen Anatomical Collection Method Collection Time Receive d Time (Source) Location / / Volume Laterality 04/09/2015 11:50 04/09/2015 AM CDT 11:55 AM CDT Anna Aguiar MD LAB - BEAKER POCT Performing Organization Address City/State/ZIP Code Phon e Number [facility] POINT OF CARE TEST, GLUCOSE POINT OF CARE TEST, GLUCOSE Outpatient Coronary Angiography Adult Order (04/09/2015 11:13 AM CDT) Anatomical Region Laterality Modality Radio Fluoroscopy Specimen (Source) Anatomical Location Collection Method / Collectio n Time Received Time / Laterality Volume Impressions 04/09/2015 12:51 PM CDT IMPRESSION: 1. Successful PCI to mid-LCX with Deploy ment of 3.0 x 34 Resolute Integrity Drug Eluting Stent 2. Successful PCI to OM2 with Deployment of 2.25 x 18 Resolute Integrity Drug Eluting Stent 3. Successful PCI to Ostial LCX with Dep loyment of 3.0 x 12 Resolute Integrity Drug Eluting Stent INDICATION:- Progressive class 3 angina not controlled with medical therapy Mr. Nikita Anderson is a very pleasant [age]-year-old gentleman who was referred for evaluation ??PCI. He has co ronary artery disease and this spring and summer has had progressive an d limiting dyspnea on exertion and exertional fatigue which he can avoi d if he paces himself. This is been consistent with an anginal equivale nt. He underwent angiography several months ago demonstrating 3 hemod ynamically severe lesions involving the distal right coronary erick ry and PDA, a second obtuse marginal, and the distal circumflex befo re significant sized third and fourth obtuse marginals. Further medical therapy was tried and he notes no improvement in his activity baltazar erance. His is convinced that he is actually able to do less and less as the months go by. He is not having rest episodes or episodes with just activity in the house but if he tries to do yard work it is very difficult and he can no longer do that very well. He also lik es to hike a lot and cannot do that unless it is short and on level michael und. He is not having resting shortness of breath, other discomfort wi th activity, palpitations or syncope. He has several years of intermi ttent dizziness for less than 30 seconds without severe dizziness or s yncope. This has not changed recently and he does not think it is bee n aggravated by his medical therapy. His resting heart rate is now i n the 50s so further beta hong therapy is not likely to be tole rated. His diabetes was poorly controlled last year because of some pro blems with this injection site but now is well-controlled. Last year hi s LDLs were well-controlled until his diabetes control was poor, now awaiting to see if there better control with better diabetes cont rol. He is a nonsmoker, and blood pressure well controlled. His ejec tion fraction is normal. He had an abnormal stress study and in vanessa tion his coronary lesions were confirmed to be hemodynamically severe b y FFR several months ago. PERCUTANEOUS CORONARY INTERVENTION: Patient was brought to the cardiac fish terization lab in a fasting state. He was prepped and draped in the usual sterile fashion. The area over the right radial artery was anesthetized usi ng 1% lidocaine. A 6 [place] sheath was inserted using a through and through micropuncture technique. 2.5 mg verapamil and 200 mcg of intra-arterial nitroglycerin were given. Intravenous he zoltan were given. Selective coronary cineangiography pf the left cor onary system was performed in multiple projections using a 6 [place] EB U 3.5 guide catheter. After reviewing the coronary angiography findi ngs, we elected to treat the middle left circumflex and 2nd obtuse ma rginal branch. A BMW guidewire was used to successfully cross the LCX l esion and was placed in the distal segment of the LCX. A second BMW guidewire was placed in the distal segment of the OM2. The OM2 lesio n was pre-dilated with a ??2.0 x 15 Emerge balloon. The 2.0 x 15 Emerge balloon was then used to pre-dilate the LCX. After adequate angio plasty result, a 2.25 x 18 Resolute drug-eluting stent was advanced inside the OM2. An attempt was made to advance a 3.0 x 34 Resolute drug eluting stent however we were not able to successfully advanced i t. A 3.0 x 15 Emerge balloon was then advanced into the LCX and left in place across the bifurcation of the OM2. The 2.25 x 18 Re solute stent was then successfully deployed in the OM2 at 12 A TM. The portion of the stent extending into the circumflex and underw ent crush stenting with a 3.0 balloon. The OM2 wire was removed but th e 3.0 resolute stent ??could still not be advanced through the proxim al and ostial circumflex which had an eccentric calcified lesion. And a 6 [place] GuideLiner was then used for extra support, but the stent st ill could not be advanced. Following dilation of the proximal circu mflex, the guide liner could be advanced into the circumflex and then the stent could be advanced into the lesion to OM 2, but not beyond. Therefore exchanged for 3.0 balloon and further stent crush performe d. Following that a 3.0 stent could finally be advanced into the lesio n beyond OM 2, and straddling the origin of the OM 2 ??and PCI of the segment of the LCX was performed stent. ??The stented OM2 was t hen re-crossed with a Science Liaison 50 guidewire, however advancement of a 1.5 x 8 [place] Push balloon was unsuccessful. Due to the angiographicall y significant stenosis of the ostial LCX and the additional disruption provoked by there are Cat[place] diuretics as a guide liner could be adva nced into it during the earlier part of the procedure, the decis ion was made to proceed with stenting of the ostium. The second BMW g uidewire was advanced into the middle segment of the LAD to protect the vessel during stenting of the ostial LCX. A 3.0 x 12 Resolute drug elu ting stent was successfully deployed in the ostial LCX at [address]-dilation was performed with a 3.5 x 8 Emerge non-compliant balloon t o 20 atmospheres. This produced an excellent angiographic resul t. Following the procedure all catheters and sheaths were removed. Hemo stasis was obtained by application of a TR band. Patient was re turned to the floor in good condition. The patient received aspirin prior to intervention and intravenous heparin was used for intrapr ocedural anticoagulation. Patient was loaded with 300 mg of clopid ogrel. Conscious sedation was administered throughout the entire proce dure under my direct supervision. HEMODYNAMICS: Aortic pressure is 88/47 ( 67) mmHg. CONTRAST: 230 cc FLUOROSCOPY: 40.3 minutes- working views were alternated between MONGOLIAN cranial and AP caudal throughout. ESTIMATED BLOOD LOSS: <30 cc PLAN: 1. Dual antiplatelet therapy with clopid ogrel and low-dose aspirin for 12 months 2. I will have him resume activity this week. 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 Contrast limits from a renal failure risk standpo int proscribed further PCI today. The distal right and PDA is even more heavily calcified than the circumflex, which was difficult to d ilate, so rotational atherectomy would be indicated prior to stenting of this vessel. I will have him back in clinic in one week to assess his response to today's revascularization ANNA AGUIAR MD Narrative 04/09/2015 12:51 PM CDT PROCEDURES PERFORMED: 1. Percutaneous Coronary Intervention to the mid Left Circumflex with a JAVIER 2. PCI of the OM2 with a JAVIER 3. PCI of the ostial and proximal LCx wi th a JAVIER OPERATORS: 1. Dr. Anna Aguiar (Attending) 2. Dr. Greenfield (Interventional [facility]) Procedure Note Anna Aguiar MD - 04/09/2015Fo rmatting of this note might be different from the original. PROCEDURES PERFORMED: 1. Percutaneous Coronary Intervention to the mid Left Circumflex with a JAVIER 2. PCI of the OM2 with a JAVIER 3. PCI of the ostial and proximal LCx wi th a JAVIER OPERATORS: 1. Dr. Anna Aguiar (Attending) 2. Dr. Greenfield (Interventional [facility]) IMPRESSION IMPRESSION: 1. Successful PCI to mid-LCX with Deploy ment of 3.0 x 34 Resolute Integrity Drug Eluting Stent 2. Successful PCI to OM2 with Deployment of 2.25 x 18 Resolute Integrity Drug Eluting Stent 3. Successful PCI to Ostial LCX with Dep loyment of 3.0 x 12 Resolute Integrity Drug Eluting Stent INDICATION:- Progressive class 3 angina not controlled with medical therapy Mr. Nikita Anderson is a very pleasant [age]-year-old gentleman who was referred for evaluation PCI. He has pam nary artery disease and this spring and summer has had progressive an d limiting dyspnea on exertion and exertional fatigue which he can avoi d if he paces himself. This is been consistent with an anginal equivale nt. He underwent angiography several months ago demonstrating 3 hemod ynamically severe lesions involving the distal right coronary erick ry and PDA, a second obtuse marginal, and the distal circumflex befo re significant sized third and fourth obtuse marginals. Further medical therapy was tried and he notes no improvement in his activity baltazar erance. His is convinced that he is actually able to do less and less as the months go by. He is not having rest episodes or episodes with just activity in the house but if he tries to do yard work it is very difficult and he can no longer do that very well. He also lik es to hike a lot and cannot do that unless it is short and on level michael und. He is not having resting shortness of breath, other discomfort wi th activity, palpitations or syncope. He has several years of intermi ttent dizziness for less than 30 seconds without severe dizziness or s yncope. This has not changed recently and he does not think it is bee n aggravated by his medical therapy. His resting heart rate is now i n the 50s so further beta hong therapy is not likely to be tole rated. His diabetes was poorly controlled last year because of some pro blems with this injection site but now is well-controlled. Last year hi s LDLs were well-controlled until his diabetes control was poor, now awaiting to see if there better control with better diabetes cont rol. He is a nonsmoker, and blood pressure well controlled. His ejec tion fraction is normal. He had an abnormal stress study and in vanessa tion his coronary lesions were confirmed to be hemodynamically severe b y FFR several months ago. PERCUTANEOUS CORONARY INTERVENTION: Patient was brought to the cardiac fish terization lab in a fasting state. He was prepped and draped in the usual sterile fashion. The area over the right radial artery was anesthetized usi ng 1% lidocaine. A 6 [place] sheath was inserted using a through and through micropuncture technique. 2.5 mg verapamil and 200 mcg of intra-arterial nitroglycerin were given. Intravenous he zoltan were given. Selective coronary cineangiography pf the left cor onary system was performed in multiple projections using a 6 [place] EB U 3.5 guide catheter. After reviewing the coronary angiography findi ngs, we elected to treat the middle left circumflex and 2nd obtuse ma rginal branch. A BMW guidewire was used to successfully cross the LCX l esion and was placed in the distal segment of the LCX. A second BMW guidewire was placed in the distal segment of the OM2. The OM2 lesio n was pre-dilated with a 2.0 x 15 Emerge balloon. The 2.0 x 15 Emerge balloon was then used to pre-dilate the LCX. After adequate angio plasty result, a 2.25 x 18 Resolute drug-eluting stent was advanced inside the OM2. An attempt was made to advance a 3.0 x 34 Resolute drug eluting stent however we were not able to successfully advanced i t. A 3.0 x 15 Emerge balloon was then advanced into the LCX and left in place across the bifurcation of the OM2. The 2.25 x 18 Re solute stent was then successfully deployed in the OM2 at 12 A TM. The portion of the stent extending into the circumflex and underw ent crush stenting with a 3.0 balloon. The OM2 wire was removed but th e 3.0 resolute stent could still not be advanced through the proxim al and ostial circumflex which had an eccentric calcified lesion. And a 6 [place] GuideLiner was then used for extra support, but the stent st ill could not be advanced. Following dilation of the proximal circu mflex, the guide liner could be advanced into the circumflex and then the stent could be advanced into the lesion to OM 2, but not beyond. Therefore exchanged for 3.0 balloon and further stent crush performe d. Following that a 3.0 stent could finally be advanced into the lesio n beyond OM 2, and straddling the origin of the OM 2 and PCI of the se gment of the LCX was performed stent. The stented OM2 was the n re-crossed with a Science Liaison 50 guidewire, however advancement of a 1.5 x 8 [place] Push balloon was unsuccessful. Due to the angiographicall y significant stenosis of the ostial LCX and the additional disruption provoked by there are Cat[place] diuretics as a guide liner could be adva nced into it during the earlier part of the procedure, the decis ion was made to proceed with stenting of the ostium. The second BMW g uidewire was advanced into the middle segment of the LAD to protect the vessel during stenting of the ostial LCX. A 3.0 x 12 Resolute drug elu ting stent was successfully deployed in the ostial LCX at [address]-dilation was performed with a 3.5 x 8 Emerge non-compliant balloon t o 20 atmospheres. This produced an excellent angiographic resul t. Following the procedure all catheters and sheaths were removed. Hemo stasis was obtained by application of a TR band. Patient was re turned to the floor in good condition. The patient received aspirin prior to intervention and intravenous heparin was used for intrapr ocedural anticoagulation. Patient was loaded with 300 mg of clopid ogrel. Conscious sedation was administered throughout the entire proce dure under my direct supervision. HEMODYNAMICS: Aortic pressure is 88/47 ( 67) mmHg. CONTRAST: 230 cc FLUOROSCOPY: 40.3 minutes- working views were alternated between MONGOLIAN cranial and AP caudal throughout. ESTIMATED BLOOD LOSS: <30 cc PLAN: 1. Dual antiplatelet therapy with clopid ogrel and low-dose aspirin for 12 months 2. I will have him resume activity this week. 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 Contrast limits from a renal failure risk standpo int proscribed further PCI today. The distal right and PDA is even more heavily calcified than the circumflex, which was difficult to d ilate, so rotational atherectomy would be indicated prior to stenting of this vessel. I will have him back in clinic in one week to assess his response to today's revascularization ANNA AGUIAR MD Anna Aguiar MD CV CARDIAC CATH ORDERABLES (ABNORMAL) Activated clotting time POCT (04/09/2015 10:53 AM CDT) P athologist Signature Activated Clot 250 (H) 105 - 167 POINT OF CARE Time sec TEST, HANDHELD METER Specimen Anatomical Collection Method Collection Time Receive d Time (Source) Location / / Volume Laterality 04/09/2015 10:53 04/09/2015 AM CDT 11:36 AM CDT Anna Aguiar MD LAB - ENTER/EDIT POCT Performing Organization Address City/[facility] Code Phon e Number FV POINT OF CARE TEST, HANDHELD METER POINT OF CARE TEST, HANDHELD METER (ABNORMAL) Activated clotting time POCT (04/09/2015 10:36 AM CDT) P athologist Signature Activated Clot 255 (H) 105 - 167 POINT OF CARE Time sec TEST, HANDHELD METER Specimen Anatomical Collection Method Collection Time Receive d Time (Source) Location / / Volume Laterality 04/09/2015 10:36 04/09/2015 AM CDT 11:36 AM CDT Anna Aguiar MD LAB - ENTER/EDIT POCT Performing Organization Address City/[facility] Code Phon e Number FV POINT OF CARE TEST, HANDHELD METER POINT OF CARE TEST, HANDHELD METER (ABNORMAL) Activated clotting time POCT (04/09/2015 10:26 AM CDT) P athologist Signature Activated Clot 549 (H) 105 - 167 POINT OF CARE Time sec TEST, HANDHELD METER Specimen Anatomical Collection Method Collection Time Receive d Time (Source) Location / / Volume Laterality 04/09/2015 10:26 04/09/2015 AM CDT 11:36 AM CDT Anna Aguiar MD LAB - ENTER/EDIT POCT Performing Organization Address City/[facility] Code Phon e Number FV POINT OF CARE TEST, HANDHELD METER POINT OF CARE TEST, HANDHELD METER (ABNORMAL) Activated clotting time POCT (04/09/2015 9:59 AM CDT) P athologist Signature Activated Clot 292 (H) 105 - 167 POINT OF CARE Time sec TEST, HANDHELD METER Specimen Anatomical Collection Method Collection Time Receive d Time (Source) Location / / Volume Laterality 04/09/2015 9:59 AM 5 CDT 11:36 AM CDT Anna Aguiar MD LAB - ENTER/EDIT POCT Performing Organization Address City/[facility]/ZIP [facility] [place] Phon e Number FV POINT OF CARE TEST, HANDHELD METER POINT OF CARE TEST, HANDHELD METER (ABNORMAL) Activated clotting time POCT (04/09/2015 9:42 AM CDT) P athologist Signature Activated Clot 274 (H) 105 - 167 POINT OF CARE Time sec TEST, HANDHELD METER Specimen Anatomical Collection Method Collection Time Receive d Time (Source) Location / / Volume Laterality 04/09/2015 9:42 AM 5 CDT 11:36 AM CDT Anna Aguiar MD LAB - ENTER/EDIT POCT Performing Organization Address [facility]/ZIP [facility] [place] Phon e Number FV POINT OF CARE TEST, HANDHELD METER POINT OF CARE TEST, HANDHELD METER (ABNORMAL) Activated clotting time POCT (04/09/2015 9:23 AM CDT) P athologist Signature Activated Clot 250 (H) 105 - 167 POINT OF CARE Time sec TEST, HANDHELD METER Specimen Anatomical Collection Method Collection Time Receive d Time (Source) Location / / Volume Laterality 04/09/2015 9:23 AM 5 CDT 11:35 AM CDT Anna Aguiar MD LAB - ENTER/EDIT POCT Performing Organization Address [facility]/ZIP [facility] [place] Phon e Number FV POINT OF CARE TEST, HANDHELD METER POINT OF CARE TEST, HANDHELD METER Partial thromboplastin time (04/09/2015 7:00 AM CDT) P athologist Signature PTT 28 22 - 37 sec [facility] Specimen Anatomical Collection Method Collection Time Receive d Time (Source) Location / / Volume Laterality Blood specimen 04/09/2015 7:00 AM 015 7:07 (specimen) CDT AM CDT Anna Aguiar MD LAB - BLOOD ORDERABLES Performing Organization Address City/[facility]/ZIP [facility] [place] Phon e Number [facility] [address] [address] [place] [address] [address] [address], [place] [phone] (ABNORMAL) Lipid panel reflex to direct LDL (04/09/2015 7:00 AM CDT) athologist Signature Cholesterol 132 <200 mg/dL [facility] Comment: LDL Cholesterol is the primary guide to therapy. The NCEP recommends further evaluation of: patients with cholesterol greater than 200 mg/dL if additional risk facto rs are present, cholesterol greater than 240 mg/dL, triglycerides greater than 1 50 mg/dL, or HDL less than 40 mg/dL. Triglycerides 174 (H) 0 - 150 mg/dL [facility] HDL Cholesterol 38 (L) >40 mg/dL [facility] LDL Cholesterol Calculated 59 0 - 129 mg/dL [facility] Comment: LDL Cholesterol is the primary guide to therapy: LDL-cholesterol goal in high risk patients is <100 mg/dL and in very high risk patients is <70 mg/dL. VLDL-Cholesterol 35 (H) 0 - 30 mg/dL [facility] Cholesterol/HDL Ratio 3.5 0.0 - 5.0 [facility] Specimen Anatomical Collection Method Collection Time Receive d Time (Source) Location / / Volume Laterality Blood specimen 04/09/2015 7:00 AM 015 7:07 (specimen) CDT AM CDT Anna Aguiar MD LAB - BLOOD ORDERABLES Performing Organization Address City/State/ZIP Code Phon e Number [facility] [address] [address] [facility] [address] [address], [place] [phone] INR (04/09/2015 7:00 AM CDT) athologist Signature INR 1.05 0.86 - 1.14 [facility] Specimen Anatomical Collection Method Collection Time Receive d Time (Source) Location / / Volume Laterality Blood specimen 04/09/2015 7:00 AM 015 7:07 (specimen) CDT AM CDT Anna Aguiar MD LAB - BLOOD ORDERABLES Performing Organization Address City/State/ZIP Code Phon e Number M [facility] [address] [address] [facility] [address] [address], [place] [phone] (ABNORMAL) CBC with platelets (04/09/2015 7:00 AM CDT) Analysis Performed At Patho logist Time Signature WBC 8.8 4.0 - 11.0 [place] 10e9/L [facility] RBC Count 4.10 (L) 4.4 - 5.9 [place] 10e12/L [facility] Hemoglobin 11.5 (L) 13.3 - [place] 17.7 g/dL [facility] Hematocrit 33.5 (L) 40.0 - [place] 53.0 % [facility] MCV 82 78 - 100 [facility] MCH 28.0 26.5 - [place] 33.0 pg [facility] MCHC 34.3 31.5 - [place] 36.5 g/dL [facility] RDW 13.2 10.0 - [place] 15.0 % [facility] Platelet Count 171 150 - 450 [place] 10e9/L [facility] Specimen Anatomical Collection Method Collection Time Receive d Time (Source) Location / / Volume Laterality Blood specimen 04/09/2015 7:00 AM 015 7:07 (specimen) CDT AM CDT Anna Aguiar MD LAB - BLOOD ORDERABLES Performing Organization Address City/State/ZIP Code Phon e Number [facility] [address] [address] [phone] [facility] [address] [address], [place] [phone] (ABNORMAL) Basic metabolic panel (04/09/2015 7:00 AM CDT) Analysis Performed At [facility] Time Signature Sodium 141 133 - 144 [place] mmol/L [facility] Potassium 4.9 3.4 - 5.3 [place] mmol/L [facility] Chloride 108 94 - 109 [place] mmol/L [facility] Carbon Dioxide 28 20 - 32 [place] mmol/L [facility] Anion Gap 5 3 - 14 [place] mmol/L [facility] Glucose 193 (H) 70 - 99 [place] mg/dL [facility] Urea Nitrogen 48 (H) 7 - 30 [place] mg/dL [facility] Creatinine 1.31 (H) 0.66 - [place] 1.25 mg/dL [facility] GFR Estimate 55 (L) >60 [place] mL/min/1.[address] Comment: Non GFR Calc GFR Estimate If Black 66 >60 mL/min/1.7m2 F [facility] Comment: GFR Calc Calcium 8.4 (L) 8.5 - 10.1 mg/dL [facility] Specimen Anatomical Collection Method Collection Time Receive d Time (Source) Location / / Volume Laterality Blood specimen 04/09/2015 7:00 AM 015 7:07 (specimen) CDT AM CDT Anna Aguiar MD LAB - BLOOD ORDERABLES Performing Organization Address City/State/ZIP Code Phon e Number [facility] [address] [address] [phone] [facility] [address] [address], [facility] [phone] documented in this encounter Visit Diagnoses Diagnosis Postsurgical percutaneous transluminal c oronary angioplasty status - Primary Angina pectoris (H) Other and unspecified angina pectoris CAD (coronary artery disease) Coronary atherosclerosis of unspecified type of vessel, [place] or graft Abnormal nuclear stress test Other nonspecific abnormal cardiovascula r system function study Status post coronary angioplasty 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 Start at 0800 for inpatients. IF PATIENT IS RECEIVING RENAL DIALYSIS, RN to reduce rate of 0.9 % sodium chloride IV solution to 10 mL /hour (TKO) IV infusion to prevent fluid overload., Cardiac Pre-procedure, Starting on Thu04/09/15 at 0700, Until Thu04/09/15 at 1125 0.9% sodium chloride infusion New Bag 04/09/2015 11:30 AM CDT 1,000 mLs 75 mL/hr at 75 mL/hr, Intravenous, CONTINUOUS, IF PATIENT IS RECEIVING RENAL DIALYSIS, RN to reduce rate of 0.9 % sodium chloride IV solution to 10 mL /hour (TKO) to prevent fluid overload., Cardiac Post-procedure, Starting on Thu04/09/15 at 1145, Until Thu04/09/15 at 1824 clopidogrel (PLAVIX) tablet 300-600 mg Given 04/09/2015 11:13 AM CDT 300 mg 300-600 mg, Oral, ONCE PRN, when verbally ordered by prescriber during the procedure., Starting on Thu04/09/15 at 0850, For 1 dose, Loading dose., Cardiac Intra-procedure fentaNYL (SUBLIMAZE) injection 25-50 mcg Given 04/09/2015 10:45 AM CDT 25 mcg 25-50 mcg, Intravenous, EVERY 2 MIN PRN, moderate to severe pain, other, when verbally ordered by prescriber during the procedure., Starting on Thu04/09/15 at 0850, Doses can be exceeded under direct oversight of the patient by physician., Cardiac Intra-procedure Given 04/09/2015 9:12 AM CDT 25 mcg Given 04/09/2015 8:56 AM CDT 50 mcg heparin (porcine) injection Given 04/09/2015 10:04 AM CDT 2,000 Units 1,000-10,000 Units 1,000-10,000 Units, Intravenous, EVERY 5 MIN PRN, other, bolus dose, Starting on Thu04/09/15 at 0850, when verbally ordered by prescriber during procedure. Up to a max of 25,000 units. Physician may request an additional bolus., Cardiac Intra-procedure Given 04/09/2015 9:47 AM CDT 2,000 Units Given 04/09/2015 9:29 AM CDT 4,000 Units iopamidol (ISOVUE-370) 76% solution 100 mL Given 04/09/2015 9:00 AM CDT 230 mLs 100 mL, INTRA-ARTERIAL, ONCE, On Thu04/09/15 at 0900, For 1 dose, Cardiac Intra-procedure lidocaine (PF) (XYLOCAINE) 1 % injection Given 04/09/2015 9:04 A M CDT 10 mg 10-100 mg 10-100 mg (1-10 mL), Subcutaneous, ONCE PRN, For local anesthesia for groin puncture as verbally ordered by prescriber during the procedure., Starting on Thu04/09/15 at 0850, For 1 dose, The provider administers the medication. Dose may be into smaller doses for administration., Cardiac Intra-procedure midazolam (VERSED) injection 0.5-2 mg Given 04/09/2015 10:45 AM CDT 0.5 mg 0.5-2 mg, Intravenous, EVERY 2 MIN PRN, other, when verbally ordered by prescriber during the procedure., Starting on Thu04/09/15 at 0850, Doses can be exceeded under direct oversight of the patient by physician., Cardiac Intra-procedure Given 04/09/2015 10:23 AM CDT 0.5 mg Given 04/09/2015 9:50 AM CDT 0.5 mg nitroglycerin Cmpd syr inj, 10ml 100-200 Given 04/09/2015 10:25 AM CDT 200 mcg mcg 100-200 mcg, INTRACORONARY, EVERY 1 MIN PRN, when verbally ordered by prescriber during procedure, Starting on Thu04/09/15 at 0851, Prescriber will infuse each dose, Cardiac Intra-procedure Given 04/09/2015 9:09 AM CDT 200 mcg verapamil (ISOPTIN) injection 1-2.5 mg Given 04/09/2015 9:10 AM CDT 2.5 mg 1-2.5 mg, INTRA-ARTERIAL, ONCE PRN, when verbally ordered by prescriber during procedure , Starting on Thu04/09/15 at 0851, For 1 dose, For radial or brachial access., Cardiac Intra-procedure documented in this encounter Active and Recently Administered Medications Times are shown in CDT. Scheduled Medication Order 04/07/2015 04/08/2015 04/09/2015 iopamidol (ISOVUE-370) 76% solution 100 mL (COMPLETED) 0900 (Given - Provider: Keri Winkler) 100 mL, INTRA-ARTERIAL, ONCE, Thu 5 at 0900, For 1 dose, Cardiac Intra-procedure Continuous Medication Order 04/07/2015 04/08/2015 04/09/2015 0.9% sodium chloride infusion (CANCELED) 0740 (New Bag - Provider: Debra Mccurdy, LETICIA) at 150 mL/hr, Intravenous, CONTINUOUS, 1 50 mL/hr IV for 2 hours prior to cardiac labor economist procedure, then decrease to 75 mL/hr to run throughout the procedure. Start at 0800 for inpatients. IF PATIENT I S RECEIVING RENAL DIALYSIS, RN to reduce rate of 0.9 % sodium chloride IV solution to 10 mL /hour (TKO) IV infusion to prevent fluid overload., Cardiac Pre-procedure, Starting Thu04/09/15 at 0700, Until Thu04/09/15 at 1125 0.9% sodium chloride infusion (CANCELED) 1130 (New Bag - Provider: Laureen Maxwell RN) at 75 mL/hr, Intravenous, CONTINUOUS, IF PATIENT IS RECEIVING RENAL DIALYSIS, RN to reduce rate of 0.9 % sodium chloride IV solution to 10 mL /hour (TKO) to prevent fluid overload., Cardiac Post-procedu re, Starting Thu04/09/15 at 1145, Until Thu04/09/15 at 1824 PRN Medication Order 04/07/2015 04/08/2015 04/09/2015 clopidogrel (PLAVIX) tablet 300-600 mg (COMPLETED) 1113 (Given - Provider: Octavia Zimmer, RN) 300-600 mg, Oral, ONCE PRN, when verball y ordered by prescriber during the procedure., Starting Thu04/09/15 at 0850, For 1 dose, Loading dose., Cardiac Intra-procedure fentaNYL (SUBLIMAZE) injection 25-50 mcg (CANCELED) 0856 (Given - Provider: Octavia Zimmer, RN)0912 (Given - Provider: Octavia Zimmer, RN)1045 (Given - Provider: Octavia Zimmer, RN) 25-50 mcg, Intravenous, EVERY 2 MIN PRN, Starting Thu04/09/15 at 0850, moderate to severe pain, other, when verbally ordered by prescriber during the procedure., Doses can be exceeded under direct overs ight of the patient by physician., Cardiac Intra-procedure heparin (porcine) injection 1,000-10,000 Units (CANCELED) 0911 (Given - Provider: Octavia Zimmer RN)0929 (Given - Provider: Octavia Zimmer RN)0947 (Given - Provider: Octavia Zimmer RN)1004 (Given - Provider: Octavia Zimmer RN) 1,000-10,000 Units, Intravenous, EVERY 5 MIN PRN, other, bolus dose, Starting Thu04/09/15 at 0850, when verbally ordered by prescriber during procedure. Up to a max of 25,000 units. Physician may request an additional bolus., Cardiac Intra-procedure lidocaine (PF) (XYLOCAINE) 1 % injection 10-100 mg (COMPLETED) 0904 (Given - Provider: Octavia Zimmer RN) 10-100 mg (1-10 mL), Subcutaneous, ONCE PRN, For local anesthesia for groin puncture as verbally ordered by prescriber during the procedure., Starting Thu04/09/15 at 0850, For 1 dose, The provider admin isters the medication. Dose may be separ ated into smaller doses for administration., Cardiac Intra-procedure midazolam (VERSED) injection 0.5-2 mg (CANCELED) 0857 (Given - Provider: Octavia Zimmer RN)0912 (Given - Provider: Octavia Zimmer RN)0932 (Given - Provider: Octavia Zimmer RN)0950 (Given - Provider: Octavia Zimmer RN)1023 (Given - Provider: Octavia Zimmer RN) 0.5-2 mg, Intravenous, EVERY 2 MIN PRN, Starting Thu04/09/15 at 0850, other, when verbally ordered by prescriber during the procedure., Doses can be exceeded under direct oversight of the patient by physician., Cardiac Intra-procedure 1045 (Given - Provider: Octavia Zimmer RN) nitroglycerin Cmpd syr inj, 10ml 100-200 mcg (CANCELED) 0909 (Given - Provider: Octavia Zimmer RN - Comment: given by )1025 (Given - Provider: Octavia Zimmer RN) 100-200 mcg, INTRACORONARY, EVERY 1 MIN PRN, when verbally ordered by prescriber during procedure, Starting Thu04/09/15 at 0851, Prescriber will infuse each dose, Cardiac Intra-procedure verapamil (ISOPTIN) injection 1-2.5 mg (COMPLETED) 0910 (Given - Provider: Octavia Zimmer RN - Comment: given by ) 1-2.5 mg, INTRA-ARTERIAL, ONCE PRN, when verbally ordered by prescriber during procedure , Starting 04/09/15 at 0851, For 1 dose, For radial or brachial access., Cardiac Intra-procedure documented in this encounter Care Teams Manager Fund Relationship Specialty Start Date End Date Anatoliy Jackson MD PCP - General 05/14/12 Heath More PCP - Internal Medicine INTERNAL MEDICINE - 01/06/14 MD Andreas ENDOCRINOLOGY, [facility] [address] [address] Anna Gipson PCP - Urology 04/02/15 MD Jordan [facility] UROLOGY [address] [place] [id number] documented as of this encounter
--- OUTSIDE RECORDS SUMMARY | 2022-05-02 12:40 | XMS_ITS | Encounter Summary ---
:1950 Author Organization [employer] Address [address] [facility] [address] Care Team Providers Name Role Phone Anatoliy Jackson MD Primary Care Provider Heath More MD Unavailable Peter Gipson MD Unavailable Reason for Visit Rehab Therapy Cardiac Therapy - Closed Specialty Diagnoses / Procedures Referred By Contact Refer red To Contact CARDIAC REHAB Diagnoses CAD in ione artery [facility] [address] [place] [address] Phone: Fax: Referral ID Status Reason Start Date Expiration Date Visits V isits Requested Authorized FR- CR Closed 04/16/2015 08/09/2015 36 36 ([id number]) Encounter Details Date Type Department Care Team Description 06/05/2015 Hospital Encounter [facility] Cardiac Jose Wilson MD [facility] [address] [place] [address] and Pulmonary 2, Rh Cardiac Rehab Rehabilitation [facility] [id number] [place] [address] [address] [place] [address] Social History Tobacco Use [...] Coronary atherosclerosis of unspecified type of vessel, ione or graft aspirin 325 MG tablet Take [...] Status post coronary angioplasty fluticasone (FLONASE) 50 [place] 1 spray into 0 10/10/2015 MCG/ACT nasal [...] [address] [place] [place] [id number] (Wo rk) 05/15/2022 Surgery Surgery Neo Torres MD BLEPHAROPLASTY BILATERAL [facility] INTER[facility] SURGEONS [place] PTOSIS REPAIR BILATERAL [address] [place] [id number] [phone] (Wo rk) 06/25/2022 Ancillary Procedure Cardiology Kirk Silver MD [address] [place] [id number] (Wo rk) Scheduled Procedures Name Priority Associated [...] on filedocumented in this encounter Care Teams Undercar Specialist Relationship Specialty Start Date End Date Anatoliy Jackson MD PCP - General 05/14/12 Heath More PCP - Internal Medicine INTERNAL MEDICINE - 01/06/14 MD Andreas ENDOCRINOLOGY, [facility] [address] [facility] [address] [place] [address] Peter Gipson PCP - Urology 04/02/15 MD Jordan [facility] UROLOGY [address] [place] [address] [address] [place], [place] [phone] documented as of this encounter
--- OUTSIDE RECORDS SUMMARY | 2022-05-02 12:40 | XMS_ITS | Encounter Summary ---
:1950 Author Organization [employer] Address [address] [place] [address] Care Team Providers Name Role Phone Anatoliy Jackson MD Primary Care Provider Heath More MD Unavailable Peter Gipson MD Unavailable Reason for Visit Rehab Therapy Cardiac Therapy - Closed Specialty Diagnoses / Procedures Referred By Contact Refer red To Contact CARDIAC REHAB Diagnoses CAD in port gamble artery [facility] [address] [place] [address] Phone: Fax: Referral ID Status Reason Start Date Expiration Date Visits V isits Requested Authorized FR- CR Closed 04/16/2015 08/09/2015 36 36 ([id number]) Encounter Details Date Type Department Care Team Description 06/01/2015 Hospital Encounter [facility] Cardiac Jose Wilson MD [facility] [address] [place] [address] and Pulmonary 1, Rh Cardiac Rehab Rehabilitation [facility] [address] [facility] [address] [place] [address] Social History Tobacco Use [...] Coronary atherosclerosis of unspecified type of vessel, [place] or graft aspirin 325 MG tablet Take [...] Status post coronary angioplasty fluticasone (FLONASE) 50 [place] 1 spray into 0 10/10/2015 MCG/ACT nasal [...] [address] [place] [id number] (Wo rk) 05/15/2022 Surgery Surgery Neo Torres MD BLEPHAROPLASTY BILATERAL [facility] L IDS, INTERNAL & SURGEONS PA PTOSIS REPAIR BILATERAL [address] [place] [address] [place] [id number] [phone] (Wo rk) 06/25/2022 Ancillary Procedure Cardiology Kirk Silver MD [address] [place] [id number] (Wo rk) Scheduled Procedures Name Priority Associated [...] on filedocumented in this encounter Care Teams Instructional Services Specialist Relationship Specialty Start Date End Date Anatoliy Jackson MD PCP - General 05/14/12 Heath More PCP - Internal Medicine INTERNAL MEDICINE - 01/06/14 MD Andreas ENDOCRINOLOGY, [facility] [address] [facility] [address] [place] [address] Peter Gipson PCP - Urology 04/02/[address] [facility] UROLOGY [address] [place] [address] [address] [place], [place] [phone] documented as of this encounter
--- OUTSIDE RECORDS SUMMARY | 2022-05-02 12:40 | XMS_ITS | Encounter Summary ---
:1950 Author Organization [facility] Address [address] [facility]. [address] Care Team Providers Name Role Phone Anatoliy Jackson MD Primary Care Provider Heath More MD Unavailable Peter Gipson MD Unavailable Reason for Visit Rehab Therapy Cardiac Therapy - Closed Specialty Diagnoses / Procedures Referred By Contact Refer red To Contact CARDIAC REHAB Diagnoses CAD in [place] artery [facility] [address] [place] [address] Phone: Fax: Referral ID Status Reason Start Date Expiration Date Visits V isits Requested Authorized FR- CR Closed 04/16/2015 08/09/2015 36 36 ([id number]) Encounter Details Date Type Department Care Team Description 05/23/2015 Hospital Encounter [facility] Cardiac Jose Wilson MD [facility] [address] [place] [address] and Pulmonary 1, Rh Cardiac Rehab Rehabilitation [facility] [address] [facility] [address] [place] [address] Social History Tobacco Use [...] - - Weight 100.7 kg (222 lb) 05/28/2015 5:00 PM CDT Height 180.3 cm (5' 10.98) 05/28/2015 5:00 PM CDT Body Mass Index 30.98 05/28/2015 5:00 PM CDT documented in this encounter Medications at [...] Coronary atherosclerosis of unspecified type of vessel, [place] or graft aspirin 325 MG tablet Take [...] Status post coronary angioplasty fluticasone (FLONASE) 50 [place] 1 spray into 0 10/10/2015 MCG/ACT nasal [...] encounter Progress Notes Alvaro Hagen MD - 05/28/2015 5:10 PM CDT OUTPATIENT CARDIAC REHAB INDIVIDUALIZED TREATMENT PLAN 30 Day Individualized Treatment Plan Certified through this date: 06/27/15 Name: Nikita Anderson Date of : 1950 Date of Treatment: 04/09/15 Age: [age] year old Gender: male Treatment Diagnosis: Stent Secondary Treatment Diagnosis: Hospital Location: [facility] Discharge Date: 04/09/15 Outpatient CR Start Date: 05/21/15 Primary Physician: Dr. Anatoliy Jackson Surgeon: Pcb Designer: Dr. Aguiar Ejection Fraction: WNL THR (85% [...] appears deconditioned, and has been sedentary. 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 Patient and Program Goals Sessions Attended: 2 MET Goal: 4.5 to 5 Current MET Level: 3.1 Goal To be monitored and safely progess with exercise to assess for symptoms to figure of he needs another intervention. Target Date Date Met Progress Towards Goal PT to report symptoms to therapist. In the past, he has Goal Target Date Date Met Progress Towards Goal Goal Target Date Date Met Progress Towards Goal Goal Target Date Date Met Progress Towards Goal Referrals Recommended Referrals recommended: Comments: PT has [...] comments: Stress / Psychosocial Reassessment Psycho-social Assessment: Initial Patient admits to stress: Denies Current level of stress: Denies Coping skills: Patient Health Questionnaire-9 (PHQ-9) for Depression: 5-9 Minimal symptoms 10-14 Minor depression 15-19 Major depression, moderately severe > 20 Major depression, severe Completed PHQ-9 Score: [address] [facility] Function and Health Status Survey: A [...] goal: Assessment for depression using PhQ-9 and [employer] questionnaires. Maximize coping skills and develop positive support system. Outcome Achieved Comments: Nutrition Reassessment Dietary assessment: Initial Assessment Rate Your Plate [...] < 25: Outcome Achieved Comments: Cholesterol Cholesterol: Labs Available Date: 04/09/15 Total Cholesterol: 132 HDL: 174 LDL: 59 Triglycerides: 174 Target outcome goal: Total cholesterol <150, HDL >40 M >50 F, LDL < 70, Trig < 150: Outcome Achieved Comments: Diabetes Management Diabetes Management: Type II Hb A1C: Pre-Exercise Blood Sugar: 237 Target outcome goal: Hb A1C < 7: Comments: On insulin, he has been told he falls in a jacob area, between type 1 and type 2. He wasdiagnosed at age 25 and has been on insulin since diagnois. Last HbA1c in chart was 9.7 on 06/07/14. Inactivity / Aerobic Exercise Reassessment Activity Assessment: Initial Inactivity: Sedentary Physical Activity Days per Week: 0 Aerobic Exercise Days per Week: 0 Aerobic Exercise Minutes per Day: 0 Stages of Change (Physical Activity): Contemplation Stages of Change (Aerobic Activity): Contemplation Target Outcome Goal: Aerobic Activity 30 minutes, 5 days per week = 150 minutes per week: Outcome Not Achieved Comments: PT has a TM at home, but it doesn't work INDIVIDUALIZED TREATMENT PLAN Monitored sessions scheduled: 18 Monitored sessions Attended: 2 Exercise Reassessment Met Level Achieved: 3.1 Resting HR: 53 bpm Exercise HR: 84 bpm Post Exercise HR: 57 bpm Resting BP: 124/48 mmHg Exercise BP: 154/54 mmHg Post Exercise BP: 114/58 mmHg Pre SpO2: While Exercising SpO2: Post SpO2: Pre BG (if applicable): 237 mg/dL Post BG (if applicable): 122 mg/dL RPE: ECG Rhythm: Sinus rhythm Ectopy: None Symptoms at home: Dyspnea Symptoms [...] plan and exercise prescription for this patient. documented in this encounter Miscellaneous Notes Addendum Note - Carmen Acosta OT - 05/28/2015 5:11 PM CDTEncounter addended by: Carmen Acosta OT on: 05/28/2015 5:11 PM
Documentation filed: Notes Section, Inpatient Document Flowsheet documented in this encounter Plan of Treatment Upcoming Encounters Date Type Specialty Care Team Description 05/15/2022 Hospital Encounter Surgery Singh Torres MD [facility] [address] [place] [id number] (Wo rk) 05/15/2022 Surgery Surgery Neo Torres MD BLEPHAROPLASTY BILATERAL [facility] PTOSIS REPAIR BILATERAL [address] [place] [id number] (Wo rk) 06/25/2022 Ancillary Procedure Cardiology Kirk Silver MD [address] [facility] [address] [place] [id number] (Wo rk) Scheduled Procedures Name Priority Associated [...] on filedocumented in this encounter Care Teams Conference Director Relationship Specialty Start Date End Date Anatoliy Jackson MD PCP - General 05/14/12 Heath More PCP - Internal Medicine INTERNAL MEDICINE - 01/06/14 MD Andreas ENDOCRINOLOGY, [facility] [address] [place] [phone] Peter Gipson PCP - Urology 04/02/15 MD [facility] [address] [place] [phone] documented as of this encounter
--- OUTSIDE RECORDS SUMMARY | 2022-05-02 12:41 | XMS_ITS | Encounter Summary ---
:1950 Author Organization [place] Address [address] [facility] [place] [address] Care Team Providers Name Role Phone Anatoliy Jackson MD Primary Care Provider Heath More MD Unavailable Reason for Referral - Closed Specialty Diagnoses / Procedures Referred By Contact Refer red To Contact Diagnoses Abnormal nuclear stress test Eriberto Vasquez MD [address] [place] [address] Referral ID Status Reason Start Date Expiration Date Visits Requ ested Visits Authorized [id number] Closed 01/05/2015 07/04/2015 1 1 Reason for Visit Reason Comments FU Cardiac testing Encounter Details Date Type Department Care Team Description 01/03/2015 Office Visit [facility] Eriberto Vasquez Abnormal n uclear stress test (Primary Dx); [facility] Anu Vasquez MD Coronary artery disease; [address] Unspec ified essential hypertension; [facility] [address] HYPERLIPIDEMIA NEC/NOS [place] [phone] [place] [id number] Social History Tobacco Use Types Packs/Day Years Used Date Never Smoker Alcohol Use Standard Drinks/Week Comments Yes 0 (1 standard drink = 0.6 oz pure alcoho l) occasionally Sex Assigned at Date Recorded Male 03/12/2021 12:11 PM CDT documented as of this encounter Last Filed Vital Signs Vital Sign Reading Time Taken Comments Blood Pressure 142/68 01/03/2015 9:14 AM CDT Pulse 70 01/03/2015 9:14 AM CDT Temperature - - Respiratory Rate - - Oxygen Saturation - - Inhaled Oxygen Concentration - - Weight 96.2 kg (212 lb) 01/03/2015 9:14 AM CDT Height 180.3 cm (5' 11) 01/03/2015 9:14 AM CDT Body Mass Index 29.57 01/03/2015 9:14 AM CDT documented in this encounter Progress Notes Eriberto Vasquez MD - 01/03/2015 10:23 AM CDT HPI and Plan: See dictation [id number] Orders Placed This Encounter Procedures ??? Basic metabolic panel ??? Follow-Up with Cardiac Advanced Practice Provider Orders Placed This Encounter Medications ??? cloNIDine (CATAPRES) 0.1 MG tablet Sig: Take 0.1 mg by mouth 2 times daily ??? cilostazol (PLETAL) 50 MG tablet Sig: Take 50 mg by mouth 2 times daily ??? atorvastatin (LIPITOR) 40 MG tablet Sig: Take 40 mg by mouth daily ??? tamsulosin (FLOMAX) 0.4 MG 24 hr capsule Sig: Take 0.4 mg by mouth daily ??? aspirin 325 MG tablet Sig: Take 325 mg by mouth daily Medications Discontinued During This Encounter Medication Reason ??? SIMVASTATIN PO Error ??? CLONIDINE HCL PO Error ??? CILOSTAZOL PO Error ??? TAMSULOSIN HCL PO Error Encounter Diagnoses Name Primary? Coronary artery disease ??? Unspecified essential hypertension ??? HYPERLIPIDEMIA NEC/NOS ??? Abnormal nuclear stress test Yes CURRENT MEDICATIONS: Current Outpatient Prescriptions Medication Sig Dispense Refill ??? cloNIDine (CATAPRES) 0.1 MG tablet Take 0.1 mg by mouth 2 times daily ??? cilostazol (PLETAL) 50 MG tablet Take 50 mg by mouth 2 times daily ??? atorvastatin (LIPITOR) 40 MG tablet Take 40 mg by mouth daily ??? tamsulosin (FLOMAX) 0.4 MG 24 hr capsule Take 0.4 mg by mouth daily ??? aspirin 325 MG tablet Take [...] 100 0 ALLERGIES Allergies Allergen Reactions ??? Epinephrine Palpitations PAST MEDICAL HISTORY: Past Medical History Diagnosis Date ??? 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 Type II or unspecified type diabetes mellitus with neurological manifestations, not stated as uncontrolled(250.60) Abstracted 01/20/02 ??? Pure hypercholesterolemia Abstracted 01/20/02 ??? Type II or unspecified type diabetes mellitus without mention of complication, not stated as uncontrolled ??? Unspecified essential hypertension ??? Cancer 1980 Melanoma ??? Coronary artery disease Moderate non-obstructive CAD per 07/22 angiogram PAST SURGICAL HISTORY: Past Surgical History Procedure Laterality Date ? ? Head & neck surgery wisdom teeth extractions, subacious cyst removed ??? Coronary angiography adult order 07/2013 RCA 40-50% stenosis, prox PDA 60%, left circ 50-60%. Mod. nonobstructive CAD FAMILY HISTORY: Family History Problem Relation Age of Onset ??? Diabetes Maternal Grandmother ??? Hypertension Mother ??? Hypertension Maternal Grandmother ??? Hypertension Maternal Grandfather SOCIAL HISTORY: History Social History ??? Marital Status: Spouse Name: N/A Number of Children: N/A ??? Years of Education: N/A Social History Main Topics ??? Smoking status: Never Smoker ??? Smokeless tobacco: None ??? Alcohol Use: Yes Comment: occasionally ??? Drug Use: None ??? Sexual Activity: None Other Topics Concern ??? Caffeine Concern Yes 2 -3 cups daily ??? Weight Concern Yes weight loss ??? Special Diet Yes low carb ??? Exercise No Social History Narrative Review of Systems: Skin: Negative Eyes: Positive for glasses ENT: Negative Respiratory: Positive for shortness of breath Cardiovascular: Positive for;fatigue;dizziness;lightheadedness Gastroenterology: Negative Genitourinary: Positive for nocturia;hesitancy on Flomax Musculoskeletal: Positive for arthritis;back pain Neurologic: Negative Psychiatric: Negative Heme/Lymph/Imm: Positive for allergies Endocrine: Positive for diabetes Physical Exam: Vitals: BP 142/68 mmHg Pulse 70 Ht 1.803 m (5' 11) Wt 96.163 kg (212 lb) BMI 29.58 kg/m2 Constitutional: cooperative;in no acute distress Skin: warm and dry to the touch Head: normocephalic, no masses or lesions Eyes: pupils equal and round ENT: no pallor or cyanosis, dentition good Neck: carotid pulses are full and equal bilaterally Chest: clear to auscultation;normal symmetry Cardiac: regular rhythm;no murmurs, gallops or rubs detected Abdomen: abdomen soft;no bruits Vascular: pulses full and equal, no bruits auscultated Extremities and Back: no edema trace ankle edema Neurological: affect appropriate, oriented to time, person and place;no gross motor deficits CC Anatoliy Jackson MD [facility] [id number] [place] [address] Eriberto Vasquez MD - 01/03/2015 10:22 AM CDT January 03, 2015 [place] [address] [place] [address] RE: Nikita Anderson : [address] Jackson: I had the pleasure of seeing Nikita Anderson in Cardiology Clinic for abnormal stress nuclear study. Heis a patient of my colleague, Dr. Plummer, but was seen by me because of abnormal stress nuclear study. He has diabetes and is on insulin. He has peripheral arterial disease. He has had an abnormal stresstest in the past that prompted coronary angiography in 2012. It showed a PDA lesion which was not significant by FFR. FFR was 0.5. A moderate circumflex lesion which also was not significant by FFR. Atthat time he was managed medically. This spring, he has been having some exertional shortness of breath and fatigue. He has been workingon his yard. His yard slopes down, and when he tries to climb up he gets slight shortness of breath.There is no chest pain. He was scheduled for a stress nuclear study which was performed on 12/29/2014. This was with exercise. He walked for 9-1/2 minutes. EKG changes of ischemia were noted as well assmall to medium-sized perfusion defect of moderate severity involving the mid and basal inferior wall and inferolateral wall at the base. This was partially reversible. It was felt to be ischemia. EF was mildly decreased at 43%. Compared to prior study from 2012, this defect was slightly larger. Of note, patient's exercise capacity was about average. In the past, he has had Lexiscan test done. Because of the new shortness of breath and abnormal stress nuclear study, he was seen by me today. Dinorah is planning to travel to [place] on Thursday. He is planning to travel with his family and do somehiking, including hiking 4000 [place] a mountain. He really wants to not cancel this strip. PHYSICAL EXAMINATION: VITAL SIGNS: Blood pressure 142/68, pulse 70 per minute and regular. CARDIAC: Regular S1, S2 with no murmurs. CHEST: Clear to auscultation, no carotid bruits. IMPRESSION: Abnormal stress nuclear study. The patient has at least moderate size defect of moderate severity, suggesting somewhat higher burden of ischemia. He has symptoms of shortness of breath which could be anginal equivalent. He is planning to go to [place] and do some moderate to heavy hiking there. I felt it was unsafe for him to do that without further evaluation. Therefore, I recommended coronary angiography and ad hoc intervention. The risks of coronary angiography and intervention including 1%-2% risk of stroke, myocardial infarction, , emergency surgery and vascular complications were discussed with him in detail. He understands and wishes to proceed with it. I have discussed that with Dr. Mcfarland who can perform the procedure at [facility] with a radial approach. The patient has no contraindication to drug-eluting stent. He does take Pletal and I will defer to Dr. Mcfarland whether he wants to continue that medication when he is on dual antiplatelet therapy. I suspect the PDA lesion may have gotten worse. I also scheduled him for a followup appointment with a nurse practitioner Thursday morning with a BMP prior to his flight, which is at noon. We will also estimate his ejection fraction on the LV gram. It was mildly decreased on the nuclear stress test. He may need a followup echocardiogram after he comes back from [place]. It was a pleasure seeing Nikita Anderson in Cardiology Clinic today. Sincerely, MD ERIBERTO Guan MD [place]: Name: NIKITA ANDERSON Account: [id number] : 1950 Service Date: 01/03/2015 Document: [id number] documented in this encounter Plan of Treatment Upcoming Encounters Date Type Specialty Care Team Description 05/15/2022 Hospital Encounter Surgery Singh Torres MD [facility] [address] [place] [id number] (Rosalva ferreira) 05/15/2022 Surgery Surgery Neo Torres MD BLEPHAROPLASTY BILATERAL [facility] PTOSIS REPAIR BILATERAL [address] [place] [id number] (Rosalva ferreira) 06/25/2022 Ancillary Procedure Cardiology Kirk Silver MD [address] [place] [id number] (Rosalva ferreira) Scheduled Procedures Name Priority Associated [...] S chedule Follow-Up with Cardiac Referral Routine Abnormal nuclear s tress Expected: 01/05/2015 Advanced Practice test (Approxima te), Provider Expires: 2015 documented as of this encounter Results Cardiac Cath: Coronary Angiography Adult Order (01/03/2015 3:38 PM CDT) Anatomical Region Laterality Modality Radio Fluoroscopy, R adio Fluoroscopy Specimen (Source) Anatomical Location Collection Method / Collectio n Time Received Time / Laterality Volume Narrative 01/03/2015 4:00 PM CDT CLINICAL DATA: 64-year-old gentleman with history of coronary and peripheral vascular disease. Angiography 2012 demonstrated borderline significant marginal , distal circumflex , and right PDA lesions, FFR's were normal in those areas. He was more sedentary this winter but when he resumed activities this spring he is noticing more unusual dyspnea on exertion. A recent stress study repor ambrosio inferior and inferolateral ischemia, larger territory than on previ ous studies. He used to be more limited by claudication but is now noticing limiting dyspnea. His symptom pattern has not changed in the l ast month PROCEDURES PERFORMED: 1. Selective coronary angiography 2. Left heart catheterization left ventr iculography 3. FFR of the distal circumflex 4. ??FFR of the second obtuse marginal 5. ??FFR of the right PDA CATHETERIZATION RESULTS: Multivessel cor onary disease with hemodynamically significant lesions in t he second obtuse marginal, distal circumflex before OM 3 and the OM 24, and right PDA. The distal right system is severely calcified and t here is moderate circumflex calcification 1. CORONARY ANGIOGRAPHY ? a. LEFT MAIN CORONARY ARTERY: Justin ses normally. Short normal in caliber without significant lesions ? b. LEFT ANTERIOR DESCENDING ARTER Y: Moderately severe proximal calcification. Mild proximal irregularit y. 30% mid irregularity and mild distal irregularity. Mild diagonals irregularity. ? c. CIRCUMFLEX ARTERY: Nondominant with small first, moderate second, and large third and fourth adrian nals. There is proximal 40-50% stenosis. The second obtuse marginal has 70% irregular proximal stenosis. The distal circumflex before t he third and fourth marginal also has 70-80% stenosis ? d. RIGHT CORONARY ARTERY: This is dominant with a moderate PDA and small posterior lateral system. Ther e is moderate calcification proximally. There is severe distal calci fication extending slightly to the origin of the PDA. There is mild 30% or less mid irregularity. The proximal PDA has an eccentric 70% stenos is beginning at its origin. 2. LEFT HEART CATHETERIZATION: ?a. HEMODYNAMICS: Left ventricular pressure 158/10 without gradient across aortic valve ?b. LEFT VENTRICULOGRAM: Chamber si ze normal. Ejection fraction 60% or greater. No regional wall motion abno rmality. 3. FFR A-proximal circumflex IFR was 1.0 which is normal B.-second obtuse marginal FFR significan tly abnormal at 0.79 C-distal circumflex before the origin of the OM 3, FFR significantly abnormal at 0.77 D-right PDA FFR significantly abnormal a t 0.77 COMMENTS: This gentleman has have progre ssion of his previous existing disease which is now hemodynamically sig nificant. He is having symptoms are likely angina. I been stabl e for the last month. He is leaving on a trip to [place] ??2 days. Will sánchez recommended in increasing his medical regimen and the pacing himse lf while he is on his trip . I think he is stable and after that he can return for discussion of further medical therapy versus revascula rization. I will add amlodipine 5 mg daily and clopidogrel 75 mg daily. He understands the importance of taking his nitroglycerin w ith an antalgic used and how to pace himself. PROCEDURE: After confirming intact blankenship r arch with oximetry and a modified Slava's test, a 6 Albanian slende r glide sheath was placed in the right radial artery. Catheters were advanced over guidewire into the aortic root. All catheter exchanges were done with an exchange wire. Successful diagnostic catheters we re 5 Albanian TIG. FFR performed with a 5 Albanian TIG. A volcano wire was prepared and advanced out the tip of the catheter in the left main and normalized. It was advanced across the proximal circumflex and IFR p erformed. It was then further advanced into the second obtuse marginal and FFR with adenosine intracoronary stimulation. It was then w ithdrawn into the left main and normalization confirmed. It was then advanced into the distal circumflex and the OM 4 and FFR performe d with adenosine stimulation. The wire was then withdrawn into the cat heter the catheter redirected into the right coronary. Wire was advanc ed out and normalization confirmed. Was advanced into the distal PDA and FFR with adenosine stimulation performed. The wire and cath eter were then removed and left heart catheterization performed. Le ft heart catheterization, if performed, was by placing a catheter and left ventricle hemodynamics, left ventriculography, and pullback hemo dynamics performed. If performed, the successful catheter ??was a ??6 Albanian pigtail. Following review of results, the catheter was keyon shyla over a guidewire, the radial sheath was removed and hemostasis obtained with a TR band, and the patient transferred back to the care unit. Total contrast was 140 cc Isovue-370. Fluoroscopy time was 8.8 minutes. Conscious sedation was used throughout the procedure under my supervision. ANNA MCFARLAND MD Procedure Note Anna Mcfarland MD - 01/03/2015Fo rmatting of this note might be different from the original. CLINICAL DATA: 64-year-old gentleman wit h history of coronary and peripheral vascular disease. Angiography 2012 demonstrated borderline significant marginal , distal circumflex , and right PDA lesions, FFR's were normal in those areas. He was more sedentary this winter but when he resumed activities this spring he is noticing more unusual dyspnea on exertion. A recent stress study repor ambrosio inferior and inferolateral ischemia, larger territory than on previ ous studies. He used to be more limited by claudication but is now noticing limiting dyspnea. His symptom pattern has not changed in the l month PROCEDURES PERFORMED: 1. Selective coronary angiography 2. Left heart catheterization left ventr iculography 3. FFR of the distal circumflex 4. FFR of the second obtuse marginal 5. FFR of the right PDA CATHETERIZATION RESULTS: Multivessel cor onary disease with hemodynamically significant lesions in t he second obtuse marginal, distal circumflex before OM 3 and the OM 24, and right PDA. The distal right system is severely calcified and t here is moderate circumflex calcification 1. CORONARY ANGIOGRAPHY a. LEFT MAIN CORONARY ARTERY: Arises no rmally. Short normal in caliber without significant lesions b. LEFT ANTERIOR DESCENDING ARTERY: Mod erately severe proximal calcification. Mild proximal irregularit y. 30% mid irregularity and mild distal irregularity. Mild diagonals irregularity. c. CIRCUMFLEX ARTERY: Nondominant with small first, moderate second, and large third and fourth adrian nals. There is proximal 40-50% stenosis. The second obtuse marginal has 70% irregular proximal stenosis. The distal circumflex before t he third and fourth marginal also has 70-80% stenosis d. RIGHT CORONARY ARTERY: This is domin ant with a moderate PDA and small posterior lateral system. Ther e is moderate calcification proximally. There is severe distal calci fication extending slightly to the origin of the PDA. There is mild 30% or less mid irregularity. The proximal PDA has an eccentric 70% stenos is beginning at its origin. 2. LEFT HEART CATHETERIZATION: a. HEMODYNAMICS: Left ventricular press ure 158/10 without gradient across aortic valve b. LEFT VENTRICULOGRAM: Chamber size no rmal. Ejection fraction 60% or greater. No regional wall motion abno rmality. 3. FFR A-proximal circumflex IFR was 1.0 which is normal B.-second obtuse marginal FFR significan tly abnormal at 0.79 C-distal circumflex before the origin of the OM 3, FFR significantly abnormal at 0.77 D-right PDA FFR significantly abnormal a t 0.77 COMMENTS: This gentleman has have progre ssion of his previous existing disease which is now hemodynamically sig nificant. He is having symptoms are likely angina. I been stabl e for the last month. He is leaving on a trip to [place] 2 days. Jana yañez recommended in increasing his medical regimen and the pacing himse lf while he is on his trip . I think he is stable and after that he can return for discussion of further medical therapy versus revascula rization. I will add amlodipine 5 mg daily and clopidogrel 75 mg daily. He understands the importance of taking his nitroglycerin w ith an antalgic used and how to pace himself. PROCEDURE: After confirming intact blankenship r arch with oximetry and a modified Slava's test, a 6 Albanian slende r glide sheath was placed in the right radial artery. Catheters were advanced over guidewire into the aortic root. All catheter exchanges were done with an exchange wire. Successful diagnostic catheters we re 5 Albanian TIG. FFR performed with a 5 Albanian TIG. A volcano wire was prepared and advanced out the tip of the catheter in the left main and normalized. It was advanced across the proximal circumflex and IFR p erformed. It was then further advanced into the second obtuse marginal and FFR with adenosine intracoronary stimulation. It was then w ithdrawn into the left main and normalization confirmed. It was then advanced into the distal circumflex and the OM 4 and FFR performe d with adenosine stimulation. The wire was then withdrawn into the cat heter the catheter redirected into the right coronary. Wire was advanc ed out and normalization confirmed. Was advanced into the distal PDA and FFR with adenosine stimulation performed. The wire and cath eter were then removed and left heart catheterization performed. Le ft heart catheterization, if performed, was by placing a catheter and left ventricle hemodynamics, left ventriculography, and pullback hemo dynamics performed. If performed, the successful catheter was a 6 Albanian pigtail. Following review of results, the catheter was keyon shyla over a guidewire, the radial sheath was removed and hemostasis obtained with a TR band, and the patient transferred back to the care unit. Total contrast was 140 cc Isovue-370. Fluoroscopy time was 8.8 minutes. Conscious sedation was used throughout the procedure under my supervision. 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
--- OUTSIDE RECORDS SUMMARY | 2022-05-02 12:41 | XMS_ITS | Encounter Summary ---
:1950 Author Organization [place] Address [address] [facility] [place] [address] Care Team Providers Name Role Phone Anatoliy Jackson MD Primary Care Provider Encounter Details Date Type Department Care Team Description 11/23/2013 [facility] Raheem Ovalles (H) [facility] Santos Kaye MD (Primary Dx) [address] [facility] [place] [phone] [phone] [address] [place] [address] (Wo rk) Social History Tobacco Use Types [...] MD [facility] [address] [place] [address] (Wo rk) 05/15/2022 Surgery Surgery Neo Torres MD BLEPHAROPLASTY BILATERAL [facility] PTOSIS REPAIR BILATERAL [address] [place] [address] (Wo rk) 06/25/2022 Ancillary Procedure Cardiology Kirk Silver MD [address] [place] [address] (Wo rk) Scheduled Procedures Name Priority Associated Diagnoses Date/Time REPAIR, PTOSIS, BILATERAL, Dermatochalas is 05/15/2022 7:30 AM CDT WITH BILATERAL BLEPHAROPLASTY 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 REPAIR, ECTROPION, EYE, Dermatochalasis 05/15/2022 7:30 AM CDT BILATERAL 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 documented as of this encounter Visit Diagnoses Diagnosis Claudication (H) - Primary Peripheral vascular disease, unspecified 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
--- OUTSIDE RECORDS SUMMARY | 2022-05-02 12:41 | XMS_ITS | Encounter Summary ---
:1950 Author Organization [place] Address [address] [facility] [place] [address] Care Team Providers Name Role Phone Anatoliy Jackson MD Primary Care Provider Heath More MD Unavailable Reason for Visit Reason Onset Date Comments Results 12/29/2014 Stress test results Encounter Details Date Type Department Care Team Description 12/29/2014 Telephone [facility] Heart Ariella Rivas R esults (Stress test Clinic Anu RN results) [address] [facility] [address] [place] [id number] Social History Tobacco Use Types Packs/Day Years Used Date Never Smoker Alcohol Use Standard Drinks/Week Comments Yes 0 (1 standard drink = 0.6 oz pure alcoho l) occasionally Sex Assigned at Date Recorded Male 03/12/2021 12:11 PM CDT documented as of this encounter Miscellaneous Notes Telephone Encounter - Ariella Rivas, RN - 12/29/2014 3:[address] Gonzalez, Nuclear study reader, calling to report that pt's nuclear study results are abnormal with inferior ischemia. He states that if pt is asymptomatic, then he can keep the follow up appt with Dr Plummer as scheduled on 01/04/15. Reviewed Nuclear stress test results - Impression 1. Myocardial perfusion imaging using single isotope technique demonstrated a small to medium-sized perfusion defect of moderate severity involving the mid to basal inferior wall and the basal inferolateral wall which is partially reversible and may be consistent with ischemia in the right coronary distribution. In addition, there is EKG evidence of ischemia with inferolateral ST depressions up to 1.5 mm noted at peak exercise. 2. Gated images demonstrated mild global hypokinesis of left ventricle. The left ventricular systolic function is 43% at rest and 39% on the post stress images. 3. Compared to the prior study from 05/04/2012, a small partially reversible inferior wall perfusion defect was also described on the prior study but this appears to involve the basal inferolateral wall as well on the current study . Spoke with pt to review results and ask about his current status. Pt denies chest pain but does admit to having occasional shortness of breath with activity for the last 2 months. Shortness of breath is relieved with rest. Advised that he decrease his activity level until seen (no strenuous exercise).Pt states he is planning on doing yardwork this weekend. Again advised that he should not be exerting himself prior to the OV with Dr Plummer. Asked pt if he had ntg available and he thought his Rx was old. Refill of ntg Rx escripted to his pharmacy. Advised that if he had symptoms of shortness of breath or chest pain not relieved by rest and ntg then he would need to be seen in ER. Pt verbalized understanding. Pt states that he is flying to [place] for 3 1/2 weeks (plans to hike) and is leaving on Friday 01/05. Reviewed with him that this may not be advisable but he states that he is not going to change his vacation plans. Dr Plummer is out of the office today so reviewed this information with Dr Méndez he advised that pt not participate in strenous activity prior to the follow up appt on 01/04. Spoke with pt again to reiterate that he should not participate in strenuous activity prior to the OV. Pt verbalized that he heard the recommendation but he may not follow the advice. Message sent for Dr Plummer to review this information. [place] [address] Vasquez now available on 01/03/15 so moved up pt's appt to the earlier date. [place] documented in this encounter Plan of Treatment Upcoming Encounters Date Type Specialty Care Team Description 05/15/2022 Hospital Encounter Surgery Singh Torres MD [facility] [address] [place] [id number] (Wo rk) 05/15/2022 Surgery Surgery Neo Torres MD BLEPHAROPLASTY BILATERAL [facility] PTOSIS REPAIR BILATERAL [address] [place] [address] (Wo rk) 06/25/2022 Ancillary Procedure Cardiology Kirk Silver MD [address] [place] [id number] (Wo rk) Scheduled Procedures Name Priority Associated [...] Coronary atherosclerosis of unspecified type of vessel, picayune or graft 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
--- OUTSIDE RECORDS SUMMARY | 2022-05-02 12:41 | XMS_ITS | Encounter Summary ---
:1950 Author Organization [place] Address [address] [facility] [place] [address] Care Team Providers Name Role Phone Anatoliy Jackson MD Primary Care Provider Heath More MD Unavailable Reason for Referral CV Cardio consult - Closed Specialty Diagnoses / Procedures Referred By Contact Refer red To Contact Diagnoses Other and unspecified hyperlipidemia Unspecified essential hypertension CAD (coronary artery disease) Peripheral vascular disease, unspecified (H) Gabbi Plummer DO [address] [place] [address] Referral ID Status Reason Start Date Expiration Date Visits Requ ested Visits Authorized [id number] Closed 01/06/2015 07/05/2015 1 1 Reason for Visit Reason Comments Heart Problem HTN, CAD, Hyperlipidemia Encounter Details Date Type Department Care Team Description 01/06/2014 Office Visit Gabbi Cope HYPERLIPI DEMJANI NEC/NOS (Primary Dx); [facility]y Craig Unspecified essential hypertension; [facility] [address] CAD (coronary artery disease ); [address] Peripheral vascular disease, unspecified (H) [address] [place] [address] [place], [place] [phone] (Work) [phone] Social History Tobacco Use Types Packs/Day Years Used Date Never Smoker Alcohol Use Standard Drinks/Week Comments Yes 0 (1 standard drink = 0.6 oz pure alcoho l) occasionally Sex Assigned at Date Recorded Male 03/12/2021 12:11 PM CDT documented as of this encounter Last Filed Vital Signs Vital Sign Reading Time Taken Comments Blood Pressure 126/72 01/06/2014 9:01 AM CDT Pulse 60 01/06/2014 9:01 AM CDT Temperature - - Respiratory Rate - - Oxygen Saturation - - Inhaled Oxygen Concentration - - Weight 97 kg (213 lb 12.8 oz) 01/06/2014 9:01 AM CDT Height 180.3 cm (5' 11) 01/06/2014 9:01 AM CDT Body Mass Index 29.82 01/06/2014 9:01 AM CDT documented in this encounter Progress Notes Gabbi Plummer, DO - 01/06/2014 9:38 AM CDT HPI and Plan: See dictation Orders Placed This Encounter Procedures ??? NM Exercise stress test (nuc card) ??? Follow-Up with Sign Language Interpreter Orders Placed This Encounter Medications ??? Nitroglycerin (NITROSTAT SL) Sig: Place 0.4 mg under the tongue There are no discontinued medications. Encounter Diagnoses Name Primary? HYPERLIPIDEMIA NEC/NOS Yes ??? Unspecified essential hypertension ??? CAD (coronary artery disease) ??? Peripheral vascular disease, unspecified CURRENT MEDICATIONS: Current Outpatient Prescriptions Medication Sig Dispense Refill ??? Nitroglycerin (NITROSTAT SL) Place 0.4 mg under the tongue ??? CILOSTAZOL PO Take 50 mg by mouth 2 times daily ??? CLONIDINE HCL PO Take 0.1 mg by mouth 2 times daily ??? GABAPENTIN PO Take 300 mg by mouth At Bedtime ??? lisinopril-hydrochlorothiazide (PRINZIDE,ZESTORETIC) 20-12.5 MG per tablet Take 1 tablet by mouth 2 times daily ??? SIMVASTATIN PO Take 40 mg by mouth daily ??? TAMSULOSIN HCL PO Take 1 mg by mouth daily ??? METOPROLOL SUCCINATE ER PO Take 50 mg by mouth 2 times daily ??? ONE TOUCH ULTRA TEST STRP as directed 100 prn ??? INSULIN LISPRO (HUMAN) 100 UNIT/ML SC SOLN As directed One month 0 ??? SYRINGE B-D MICRO FINE 1/2 CC SYRINGES as directed 100 prn ??? LANTUS 100 UNIT/ML SC SOLN as directed 100 0 ALLERGIES Allergies Allergen Reactions ??? No Known Drug Allergies ??? Epinephrine Palpitations PAST MEDICAL HISTORY: Past Medical History Diagnosis Date ??? 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 Type II or unspecified type diabetes mellitus with neurological manifestations, not stated as uncontrolled(250.60) Abstracted 01/20/02 ??? Pure hypercholesterolemia Abstracted 01/20/02 ??? Type II or unspecified type diabetes mellitus without mention of complication, not stated as uncontrolled ??? Unspecified essential hypertension ??? Coronary artery disease hyperlipidemia, hypertensive heart disease,peripheral vascular dx ??? Cancer 1980 Melanoma PAST SURGICAL HISTORY: Past Surgical History Procedure Laterality Date ? ? Head & neck surgery wisdom teeth extractions, subacious cyst removed FAMILY HISTORY: Family History Problem Relation Age [...] Comment: occasionally ??? Drug Use: None ??? Sexually Active: None Other Topics Concern ??? Caffeine Concern Yes 2 -3 cups daily ??? Weight Concern Yes weight loss ??? Special Diet Yes avoids salt ??? Exercise No yard work Social History Narrative Review of Systems: Skin: Positive for abnormal mole removed from back - not Melanoma Eyes: Positive for glasses ENT: Positive for postnasal drainage for years Respiratory: Positive for cough Cardiovascular: Negative Gastroenterology: Negative Genitourinary: Positive for nocturia;hesitancy on Flomax Musculoskeletal: Positive for arthritis;back pain right hip, finger joints Neurologic: Negative Psychiatric: Negative Heme/Lymph/Imm: Negative Endocrine: Negative Physical Exam: Vitals: BP 126/72 Pulse 60 Ht 1.803 m (5' 11) Wt 96.979 kg (213 lb 12.8 oz) BMI 29.83 kg/m2 Constitutional: cooperative;in no acute distress Skin: [...] equal, no bruits auscultated Extremities and Back: trace ankle edema Neurological: affect appropriate, oriented to time, person and place;no gross motor deficits CC Anatoliy Jackson MD [facility] [address] [place] [address] Gabbi Plummer DO - 01/06/2014 9:36 AM CDT January 06, 2014 Nadia More [place] [address] RE:Nikita Lind :[address] More: Mr. Lind is a pleasant, 63-year-old male with a history of moderate nonobstructive coronary artery disease, insulin-dependent diabetes, hypertension, mixed hyperlipidemia and peripheral arterial disease. He is here for his annual followup visit today. Over the past year, he has not had any significant health concerns. His cardiac testing has shown ischemia in the RCA distribution, and he had presenting symptoms of shortness of breath or dyspnea on exertion. He has not experienced symptoms of chest pain. The stress test was followed up by cardiac catheterization showing moderate disease in the range of 50%-60% throughout his coronary tree. He did have fractional flow reserve that was not abnormal, although it was mildly low; in particular, in the right coronary artery at 0.84. We have recommended aggressive medical management of his risk factors as well as lifestyle modification. He has peripheral arterial disease and has seen Dr. Ovalles [facility]. He was placed on cilostazol. Hisleg pains have resolved, and he has not had too much difficulty with this. He states he believes hisbreathing is stable, although he is not quite as active as he was last summer. He does note that hisblood sugars have been out of control lately. We had talked about this last year and considered changing his metoprolol to Coreg to exclude this possibility for blood sugar elevation. Apparently, he had discussed this with Dr. More, but at the time that he had seen Dr. More, his blood sugars had been better, and therefore this medication was not changed. He is once again complaining that his blood sugars have gotten out of control, and he does not feel like the insulin is even working. PHYSICAL EXAMINATION: His blood pressure appears to be under very good control at 126/72. Pulse is 60. His weight is 213 pounds; this is down from 219 earlier this year. Body mass index is 29. Carotid upstrokes are brisk. I do not appreciate bruit. Cardiovascular tones are regular without murmur, gallop or rub. His lungs are clear posteriorly, slightly diminished throughout. I do feel 1+ pulses in his distal extremities with trace peripheral edema. In summary, Mr. Lind is a very pleasant, 63-year-old male with nonobstructive coronary artery disease, insulin-dependent diabetes, mixed hyperlipidemia, hypertension and peripheral arterial disease.He is stable from a cardiac perspective and with stable symptoms of dyspnea on exertion. I would like him to undergo repeat stress testing next summer to evaluate for regression of ischemic heart disease. His risk factors, according to records, are still not optimally controlled, including his blood sugars and cholesterol. Once again, I will make a recommendation switching metoprolol to Coreg given that his blood sugars continue to be elevated despite a similar diet. It may be that his level of activity and exercise has dropped off and could be responsible; however, excluding the factor of the beta-hong is pretty easy and should not cost him any more money by switching him to carvedilol. He will once again discuss this with Dr. More. I will see him back in clinic in a year with a repeat stress test. Please feel free to contact me with any questions you have in regard to his care. Sincerely, Gabbi Plummer, cc: Anatoliy Jackson MD [address] [address] GABBI PLUMMER DO MT: mm Name: NIKITA LIND Account: [id number] : 1950 Service Date: 01/06/2014 Document: [id number] documented in this encounter Plan of Treatment Upcoming Encounters Date Type Specialty Care Team Description 05/15/2022 Hospital Encounter Surgery Singh Torres MD [facility] [address] [place] [address] (Wo rk) 05/15/2022 Surgery Surgery Neo Torres MD BLEPHAROPLASTY BILATERAL [facility] PTOSIS REPAIR BILATERAL [address] [place] [address] (Wo rk) 06/25/2022 Ancillary Procedure Cardiology Kirk Silver MD [address] [place] [address] (Wo rk) Scheduled Procedures Name Priority Associated [...] Order S chedule Follow-Up with Referral Routine HYPERLIPIDEMIA N EC/NOS Expected: Sign Language Interpreter Unspecified essential 2014 hypertension (Approximate), CAD (coronary artery Expires : 01/07/2016 disease) Peripheral vascular disease, unspecified (H) documented as of this encounter Visit Diagnoses Diagnosis HYPERLIPIDEMIA NEC/NOS - Primary Other and unspecified hyperlipidemia Unspecified essential hypertension CAD (coronary artery disease) Coronary atherosclerosis of unspecified type of vessel, qagan tayagungin or graft Peripheral vascular disease, unspecified (H) Peripheral vascular disease, unspecified 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
--- OUTSIDE RECORDS SUMMARY | 2022-05-02 12:41 | XMS_ITS | Encounter Summary ---
:1950 Author Organization [place] Address [address] [facility] [place] [address] Care Team Providers Name Role Phone Anatoliy Jackson MD Primary Care Provider Heath More MD Unavailable Reason for Referral - Closed Specialty Diagnoses / Procedures Referred By Contact Refer red To Contact Diagnoses Other and unspecified hyperlipidemia CAD (coronary artery disease) Shey Feliz APRN CNP [address] [place] [address] Referral ID Status Reason Start Date Expiration Date Visits Requ ested Visits Authorized [id number] Closed 02/04/2015 08/03/2015 1 1 Reason for Visit Reason Comments Heart Problem CAD, PVD, HTN, Hyperlipidemi a, post heart cath Recheck Medication - Closed Specialty Diagnoses / Procedures Referred By Contact Refer red To Contact Diagnoses Abnormal nuclear stress test Christiano Vasquez MD [address] [place] [address] Referral ID Status Reason Start Date Expiration Date Visits Requ ested Visits Authorized [id number] Closed 01/05/2015 07/04/2015 1 1 Encounter Details Date Type Department Care Team Description 01/05/2015 [facility] HYPERLIPID EMIA NEC/NOS; [facility] Shey Eller Unspecified essential hypert ension; [address] CAD (coronary artery disease); [address] Peripheral vascular disease, unspecified (H); [place] [phone] [address] Abnormal nuclear stress test [phone] [place] [address] Social History Tobacco Use Types Packs/Day Years Used Date Never Smoker Alcohol Use Standard Drinks/Week Comments Yes 0 (1 standard drink = 0.6 oz pure alcoho l) occasionally Sex Assigned at Date Recorded Male 03/12/2021 12:11 PM CDT documented as of this encounter Last Filed Vital Signs Vital Sign Reading Time Taken Comments Blood Pressure 132/58 01/05/2015 7:26 AM CDT Pulse 72 01/05/2015 7:26 AM CDT Temperature - - Respiratory Rate - - Oxygen Saturation - - Inhaled Oxygen Concentration - - Weight 99.3 kg (219 lb) 01/05/2015 7:26 AM CDT Height 180.3 cm (5' 11) 01/05/2015 7:26 AM CDT Body Mass Index 30.54 01/05/2015 7:26 AM CDT documented in this encounter Progress Notes Shey Feliz Daphnie Camarillo APRN DIRECTOR VACCINE - 01/05/2015 8:09 AM CDT HISTORY OF PRESENT ILLNESS: I had the pleasure of meeting Mr. Nikita [place] this morning before he heads to [place]. He is a pleasant 64-year-old patient of Dr. Plummer'tricia with a history of moderate nonobstructive coronary artery disease, insulin-dependent diabetes, hypertension, mixed hyperlipidemia and peripheral artery disease. Previous cardiac testing has shown ischemia in the RCA distribution, and previous cardiac catheterization had shown moderate disease, 56% throughout his coronary tree, but FFRwas not abnormal and medical management was pursued. He has been treated by Dr. Ovalles in [facility] for peripheral artery disease and has been taking Pletal. Dr. Plummer saw Mr [place] a year ago in December and thought his dyspnea on exertion was stable and ordered a followup stress test be done this year. He had a stress test was abnormal, he saw and Dr. Vasquez this Thursday, he was symptomatic and recommended to have a coronary angiogram done. He agreed to do this but did not want to cancel his trip to [place] scheduled today. He underwent coronary angiography Thursday and found to have 3-vessel disease with 70%-80% stenosis in his distal circumflex and 70% stenosis in his second obtuse marginal. His right coronary artery showed the proximal PDA to have a 77% stenosis beginning at its origin. The LAD had up to 30% stenosis. Because he is traveling to [place], it was decided not to make any interventions at the time and instead to pursue medical management andfollow up with Dr. Plummer when he returns in 1 month's time to discuss follow up. He was initiated on amlodipine 5 mg and Clopidogrel 75 mg, his Pletal was stopped. He is here today to follow up. Since angiogram, he has had no problems with wrist site. He kept it covered with a brace, which we took off and I examined it. It looks well healed with strong distal pulses, good range of motion. He had several questions about traveling. He asked about instructions for taking nitro. I reviewed them with him. He wondered, if he is hiking out in the mountains and needs nitro, what he should do. I recommended that he take up to three nitro and if symptoms persist to get to an ER. Additionally, he asked about going in a [place] sauna, he has never done that before. I discouraged him from doing that atthis point, as I am not sure how well he would tolerate the heat. In terms of recommendations for fly ing, I recommended that he drink lots of fluids and get up and walk around frequently while on the plane. He does not have compression stockings and he is leaving later today. I told him if he has swelling while he is traveling, that he should consider getting some before he returns home on the flight. PHYSICAL EXAMINATION: GENERAL: A 64-year-old male in no acute distress, ambulates independently. VITAL SIGNS: Blood pressure 132/58, heart rate 72, weight 219 pounds, BMI 30. LUNGS: Bilaterally clear to auscultation. CARDIOVASCULAR: Rate regular, normal S1, S2, normal JVP. EXTREMITIES: No lower extremity edema. Right radial catheter insertion site appears well-healed, with strong distal pulses. Good range of motion, no tingling or numbness. ASSESSMENT AND PLAN: Coronary artery disease, status post coronary angiography with three vessel disease but without PCI, as patient has plans to travel to [place] today. We reviewed his medications, including the added medication of Norvasc and Plavix and the importance of these for the medical management of his coronary artery disease until he returns from his trip. His blood pressure is better controlled on these medications. I have asked him to come back and see Dr. Plummer when he returns, which would be 01/29. He has been also instructed to keep his medications and their bottles labeled in his carry on bag while he travels. Thank you for allowing me to see this patient. SHEY FELIZ APRN, DIRECTOR VACCINE MT: [place] Name: NIKITA [place] Account: [id number] : 1950 Service Date: 01/05/2015 Document: [id number] Shey Feliz APRN CNP - 01/05/2015 8:00 AM CDT HPI and Plan: See dictation [id number] Orders Placed This Encounter Procedures ??? Follow-Up with Marketing Communications Associate No orders of the defined types were placed in this encounter. Medications Discontinued During This Encounter Medication Reason ??? cilostazol (PLETAL) 50 MG tablet Alternate therapy Encounter Diagnoses Name Primary? HYPERLIPIDEMIA NEC/NOS ??? Unspecified essential hypertension ??? CAD (coronary artery disease) ??? Peripheral vascular disease, unspecified ??? Abnormal nuclear stress test CURRENT MEDICATIONS: Current Outpatient Prescriptions Medication Sig Dispense Refill ??? cloNIDine (CATAPRES) 0.1 MG tablet Take 0.1 mg by mouth 2 times daily ??? atorvastatin (LIPITOR) 40 MG tablet Take 40 mg by mouth daily ??? tamsulosin (FLOMAX) 0.4 MG 24 hr capsule Take 0.4 mg by mouth daily ??? aspirin 325 MG tablet Take 325 mg by mouth daily ??? clopidogrel (PLAVIX) 75 MG tablet Take 1 tablet (75 mg) by mouth daily 90 tablet 3 ??? amLODIPine (NORVASC) 5 MG [...] artery disease Moderate non-obstructive CAD per 07/22 angiogram, 12/2014 Heart cath - 70% prox PDA - FFR 0.77, 70% OM2 - FFR 0.79, 70-80% OM3 -FFR 0.77, 70-80% OM4, PAST SURGICAL HISTORY: Past Surgical History Procedure Laterality Date ? ? Head & neck surgery wisdom teeth extractions, subacious cyst removed ??? Coronary angiography adult order 07/2013 RCA 40-50% stenosis, prox PDA 60%, left circ 50-60%. Mod. nonobstructive CAD ??? Heart cath coronary angiogram w/lv gram 12/2014 Heart cath - 70% prox PDA - FFR 0.77, 70% OM2 - FFR 0.79, 70-80% OM3 - FFR 0.77, 70-80% OM4, FAMILY HISTORY: Family History [...] Use: Yes Comment: occasionally ??? Drug Use: No ??? Sexual Activity: None Other Topics Concern ??? Caffeine Concern Yes 2 -3 cups daily ??? Weight Concern Yes weight loss ??? Special Diet Yes low carb ??? Exercise No Social History Narrative Review of Systems: Skin: Negative Eyes: Positive for glasses ENT: Negative Respiratory: Positive for dyspnea on exertion (no exertion recently) Cardiovascular: Positive for;fatigue;lightheadedness Gastroenterology: Negative Genitourinary: Positive for nocturia;hesitancy on Flomax Musculoskeletal: Positive for arthritis;back pain Neurologic: Negative Psychiatric: Negative Heme/Lymph/Imm: Positive for allergies Endocrine: Positive for diabetes Physical Exam: Vitals: BP 132/58 mmHg Pulse 72 Ht 1.803 m (5' 11) Wt 99.338 kg (219 lb) BMI 30.56 kg/m2 Constitutional: cooperative;in no acute distress Skin: warm and dry to the touch Head: normocephalic Eyes: pupils equal and round;sclera white ENT: not assessed this visit Neck: JVP normal Chest: clear to auscultation;normal symmetry Cardiac: regular rhythm;no murmurs, gallops or rubs detected Abdomen: abdomen soft Vascular: 2+ 2+ right radial cather insertion site c/d/i, no bleeding, no echymossis, good distal pulses and normal range of motion Extremities and Back: no edema trace ankle edema Neurological: affect appropriate, oriented to time, person and place;no gross motor deficits CC Anatoliy Jackson MD [facility] [address] [place] [address] documented in this encounter Plan of Treatment Upcoming Encounters Date Type Specialty Care Team Description 05/15/2022 Hospital Encounter Surgery Singh Torres MD [facility] [address] [place] [id number] (Wo rk) 05/15/2022 Surgery Surgery Neo Torres MD BLEPHAROPLASTY BILATERAL [facility] PTOSIS REPAIR BILATERAL [address] [place] [id number] (Wo rk) 06/25/2022 Ancillary Procedure Cardiology Kirk Silver MD [address] [place] [id number] (Wo rk) Scheduled Procedures Name Priority Associated [...] with Referral Routine HYPERLIPIDEMIA N EC/NOS Expected: Marketing Communications Associate CAD (coronary artery 015 disease) (Approximate), Expires: 2015 documented as of this encounter Visit Diagnoses Diagnosis HYPERLIPIDEMIA NEC/NOS Other and unspecified hyperlipidemia Unspecified essential hypertension CAD (coronary artery disease) Coronary atherosclerosis of unspecified type of vessel, [place] or graft Peripheral vascular disease, unspecified (H) Peripheral vascular disease, unspecified Abnormal nuclear stress test Other nonspecific abnormal cardiovascula r system function study 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 [address] [place] [phone] documented as of this encounter
--- OUTSIDE RECORDS SUMMARY | 2022-05-02 12:41 | XMS_ITS | Encounter Summary ---
:1950 Author Organization [place] Address [address] [facility] [place] [address] Care Team Providers Name Role Phone Anatoliy Jackson MD Primary Care Provider Heath More MD Unavailable Reason for Visit Reason Onset Date Comments Previsit 12/29/2014 OV 01/04/[address]D alvarez. Annual OV for CAD. Encounter Details Date Type Department Care Team Description 12/29/2014 PRE VISIT [facility] Heart Brenda Concepcion revisit (OV 01/04/15 Clinic Anu Donnelly RN with . Annual [address] [facility] OV for CA DRama) [facility] [address] [place] [phone] Social History Tobacco Use Types Packs/Day Years [...] MD [facility] [address] [facility] [address] [place] [address] (Wo rk) 05/15/2022 Surgery Surgery Neo Torres MD BLEPHAROPLASTY BILATERAL [facility] PTOSIS REPAIR BILATERAL [address] [place] [id number] (Wo rk) 06/25/2022 Ancillary Procedure Cardiology Kirk Silver MD [address] [place] [id number] (Wo rk) Scheduled Procedures Name Priority Associated [...] on filedocumented in this encounter Care Teams Finisher [employer] Relationship Specialty Start Date End Date Anatoliy Jackson MD PCP - General 05/14/12 Heath More PCP - Internal Medicine INTERNAL MEDICINE - 01/06/14 MD Andreas [facility], [facility] [address] [place] [phone] documented as of this encounter
--- OUTSIDE RECORDS SUMMARY | 2022-05-02 12:41 | XMS_ITS | Encounter Summary ---
:1950 Author Organization [place] Address [address] [facility] [place] [address] Care Team Providers Name Role Phone Anatoliy Jackson MD Primary Care Provider Heath More MD Unavailable Reason for Visit Reason Onset Date Comments Refill Request 01/04/2015 Cilostazol - Confirm ed in Chart Encounter Details Date Type Department Care Team Description 01/04/2015 Refill [facility] Heart Gurvinder Ovalles Refill Request Clinic Anu Kaye MD (Cilostazol - Confirmed [address] [facility] VEINS in Chart ) [address] [facility] [place] [phone] [phone] [address] [place] [address] (Wo rk) Social History Tobacco Use Types [...] [address] [place] [address] (Wo rk) 05/15/2022 Surgery Surgery eNo Torres MD BLEPHAROPLASTY BILATERAL [facility] PTOSIS REPAIR BILATERAL [address] [place] [id number] (Wo rk) 06/25/2022 Ancillary Procedure Cardiology Kirk Silver MD [address] [place] [id number] (Wo rk) Scheduled Procedures Name Priority Associated Diagnoses Date/Time REPAIR, PTOSIS, BILATERAL, Dermatochalas is 05/15/2022 7:30 AM CDT WITH BILATERAL BLEPHAROPLASTY 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 REPAIR, ECTROPION, EYE, Dermatochalasis 05/15/2022 7:30 AM CDT BILATERAL 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 documented as of this encounter Visit Diagnoses Diagnosis PVD (peripheral vascular disease) (H) - Primary Peripheral vascular disease, unspecified 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
--- OUTSIDE RECORDS SUMMARY | 2022-05-02 12:41 | XMS_ITS | Encounter Summary ---
:1950 Author Organization [place] Address [address] [facility] [place] [address] Care Team Providers Name Role Phone Anatoliy Jackson MD Primary Care Provider Heath More MD Unavailable Reason for Visit (Routine) - Closed Specialty Diagnoses / Procedures Referred By Contact Refer red To Contact Radiology / Radiology. Diagnoses Epic, sb pt pt wt 215 pt is holding BT pt advised of all the prep pt is diabetic. Rh Nuclear Medicine Procedures [facility] [address] [place] [address] Phone: Fax: Referral ID Status Reason Start Date Expiration Date Visits Requ ested Visits Authorized [id number] Closed 12/26/2014 12/26/2015 1 1 Encounter Details Date Type Department Care Team Description 12/29/[address] [facility] Ki[place] [address] [facility] [address] [place], [place] [address] [phone] [place], [place] [phone] (Wo rk) Social History Tobacco Use Types [...] directed 100 0 09/18/2004 1/2 CC SYRINGES carvedilol (COREG) 12.5 Take 1 tablet (12.5 180 tablet 3 07/09/2015 MG tabletIndications: mg) by mouth 2 times HTN (hypertension) daily (with meals) CILOSTAZOL Take 50 mg by mouth 0 01/03 POIndications: 2 times daily Intermittent Claudication CLONIDINE HCL PO Take 0.1 mg by mouth 0 01/03/2015 2 times daily GABAPENTIN PO Take 300 [...] 1 tab under the 25 tablet 3 12/29/2014 0 12/20/2015 (NITROSTAT) 0.4 MG SL tongue for chest tabletIndications: CAD pain, may repeat (coronary artery every 5 minutes x2. disease) If pain not relieved then seek medical attention SIMVASTATIN PO Take 40 mg by mouth 0 0 01/03/2015 daily TAMSULOSIN HCL PO Take 1 mg by mouth 0 01/03/2015 daily documented as of this encounter Plan of Treatment Upcoming Encounters Date Type Specialty Care Team Description 05/15/2022 Hospital Encounter Surgery Singh Torres MD [facility] [address] [place] [address] (Wo rk) 05/15/2022 Surgery Surgery Neo Torres MD BLEPHAROPLASTY BILATERAL [facility] PTOSIS REPAIR BILATERAL [address] [place] [phone] (Wo rk) 06/25/2022 Ancillary Procedure Cardiology Kirk Silver MD [address] [place] [phone] (Wo rk) Scheduled Procedures Name Priority Associated [...] Diagnosis Comme nts NM [facility] Routine 12/29/2014 12:57 HYPERLIPIDEMIA NEC/NOS Results for this PM CDT Unspecified essential proced ure are in hypertension the results CAD (coronary artery section . disease) Peripheral vascular disease, unspecified (H) documented in this encounter Visit Diagnoses Not on filedocumented in this encounter Administered Medications Inactive Administered Medications - up to 3 most recent administrations Medication Order MAR Action Action Date Dose Rate Site technetium Tc 99m tetrofosmin Given 12/29/2014 11:38 AM CDT 30.8 mCi 2UD study (MYOVIEW) radioisotope injection 3-42 mCi 3-42 mCi, Intravenous, EVERY 2 HOURS, First dose on Thu12/29/14 at 1000, For 2 doses, Radioisotope, supplied by and administered by Nuclear Medicine. *HW* Given 12/29/2014 10:03 AM CDT 10.5 mCi documented in this encounter Care Teams Intranet Support Relationship Specialty Start Date End Date Anatoliy Jackson MD PCP - General 05/14/12 Heath More PCP - Internal Medicine INTERNAL MEDICINE - 01/06/14 MD Andreas ENDOCRINOLOGY, [facility] [address] [place] [phone] documented as of this encounter
--- OUTSIDE RECORDS SUMMARY | 2022-05-02 12:41 | XMS_ITS | Encounter Summary ---
:1950 Author Organization [place] Address [address] [place] [address] Care Team Providers Name Role Phone Anatoliy Jackson MD Primary Care Provider Heath More MD Unavailable Reason for Visit (Routine) - Closed Specialty Diagnoses / Procedures Referred By Contact Refer red To Contact Cardiology Diagnoses Epic, sb pt pt wt 215 pt is holding BT pt advised of all the prep pt is diabetic. [facility] Electrocardiology Procedures EKG STRESS NM EXERCISE [address] [place], [place] [address] Phone: Referral ID Status Reason Start Date Expiration Date Visits Requ ested Visits Authorized [id number] Closed 12/26/2014 12/26/2015 1 1 Encounter Details Date Type Department Care Team Description 12/29/2014 [facility] Hyacinth Plummer HYPERLI PIDEMIA NEC/NOS; Encounter Electrocardiolgy DO Kiara Unspecified essential hypertension; [address] CAD (cor onary artery disease); [address] Peripheral vascular disease, unspecified (H) [facility] [place] [phone] Social History Tobacco Use Types Packs/Day [...] daily (PRINZIDE,ZESTORETIC) 20-12.5 MG per tabletIndications: Hypertension SIMVASTATIN PO Take 40 mg by mouth 0 0 01/03/2015 daily TAMSULOSIN HCL PO Take 1 mg by mouth 0 01/03/2015 daily documented as of this encounter Progress Notes Kay Diaz - 12/29/2014 12:19 PM CDT Nuclear Treadmill test completed. Pt had EKG changes during test. Per Dr. Vasquez, Pt okay to proceed with stress nuclear imaging and go home. documented in this encounter Plan of Treatment Upcoming Encounters Date Type Specialty Care Team Description 05/15/2022 Hospital Encounter Surgery Singh Torres MD [facility] [address] [place] [address] (Wo rk) 05/15/2022 Surgery Surgery Neo Torres MD BLEPHAROPLASTY BILATERAL [facility] PTOSIS REPAIR BILATERAL [address] [place] [address] (Wo rk) 06/25/2022 Ancillary Procedure Cardiology Kirk Silver MD [address] [place] [address] (Wo rk) Scheduled Procedures Name Priority Associated [...] disease, unspecified (H) documented in this encounter Results NM Exercise stress test (nuc card) (12/29/2014 12:57 PM CDT) Anatomical Region Laterality Modality Chest Nuclear Medicine Specimen (Source) Anatomical Location Collection Method / Collectio n Time Received Time / Laterality Volume Narrative 12/29/2014 3:15 PM CDT GATED MYOCARDIAL PERFUSION SCINTIGRAPHY EXERCISE- ONE DAY STUDY 12/29/2014 12:57 PM ??NIKITA ANDERSON ??[age] years ??Male ??1950. Indication/Clinical History: Coronary ar alena disease, dyspnea on exertion Impression 1. ??Myocardial perfusion imaging using single isotope technique demonstrated a small to medium-sized per fusion defect of moderate severity involving the mid to basal infe rior wall and the basal inferolateral wall which is partially re versible and may be consistent with ischemia in the right coronary dist ribution. In addition, there is EKG evidence of ischemia with inferol ateral ST depressions up to 1.5 mm noted at peak exercise. 2. Gated images demonstrated mild global hypokinesis of left ventricle. ??The left ventricular systol ic function is 43% at rest and 39% on the post stress images. 3. Compared to the prior study from 05/04, a small partially reversible inferior wall perfusion defec t was also described on the prior study but this appears to involve the basal inferolateral wall as well on the current study . Procedure The patient performed treadmill exercise using a Vinod protocol, completing 9 minutes and 30 seconds . ?? The test was terminated due to patient fatigue. The heart rate was 68 b eats per minute at baseline and increased to 146 beats at peak exerc ise, which was 94% of the maximum predicted heart rate. The rest b lood pressure was 122/62 mm/Hg and peak blood pressure is 186/60mm/Hg . The patient experienced no chest discomfort during the test. The pa tient was not on a beta hong. Myocardial perfusion imaging was perform ed at rest, approximately 45 minutes after the injection intravenousl y of 10.5of Tc-99m Myoview. At peak exercise, the patient was injected intravenously with 30.8 mCi of Tc-99m Myoview and exercise continued f or approximately 1 minute. Gated post-stress tomographic imaging wa s performed approximately 30 minutes after stress EKG Findings The resting EKG demonstrated normal sinu s rhythm . The stress EKG demonstrated ST depressions of 1.5 mm in the inferolateral leads at peak exercise which are suggestive of ex ercise-induced ischemia. Occasional PVCs were noted. Tomographic Findings Overall, the study quality is good . On the stress images, small to medium-sized perfusion defect of moderat e severity involving the mid to basal inferior wall and the basal inf erolateral wall is noted. On the rest images,perfusion is normal with the exception of a mild reduction in counts in the basal inferio r and inferolateral wall . Gated images demonstrated mild global hy pokinesis of the left ventricle. The left ventricular ejection fraction was calculated to be 43% at rest and 39% on the post stress i mages. TID was absent. TORIN GONZALEZ MD Procedure Note Torin Gonzalez MD - 12/29/2014Forma tting of this note might be different from the original. GATED MYOCARDIAL PERFUSION SCINTIGRAPHY EXERCISE- ONE DAY STUDY 12/29/2014 12:57 PM NIKITA ANDERSON 64 ye ars Male 1950. Indication/Clinical History: Coronary ar alena disease, dyspnea on exertion Impression 1. Myocardial perfusion imaging using si ngle isotope technique demonstrated a small to medium-sized per fusion defect of moderate severity involving the mid to basal infe rior wall and the basal inferolateral wall which is partially re versible and may be consistent with ischemia in the right coronary dist ribution. In addition, there is EKG evidence of ischemia with inferol ateral ST depressions up to 1.5 mm noted at peak exercise. 2. Gated images demonstrated mild global hypokinesis of left ventricle. The left ventricular systolic function is 43% at rest and 39% on the post stress images. 3. Compared to the prior study from 05/04, a small partially reversible inferior wall perfusion defec t was also described on the prior study but this appears to involve the basal inferolateral wall as well on the current study . Procedure The patient performed treadmill exercise using a Vinod protocol, completing 9 minutes and 30 seconds . Th e test was terminated due to patient fatigue. The heart rate was 68 b eats per minute at baseline and increased to 146 beats at peak exerc ise, which was 94% of the maximum predicted heart rate. The rest b lood pressure was 122/62 mm/Hg and peak blood pressure is 186/60mm/Hg . The patient experienced no chest discomfort during the test. The pa tient was not on a beta hong. Myocardial perfusion imaging was perform ed at rest, approximately 45 minutes after the injection intravenousl y of 10.5of Tc-99m Myoview. At peak exercise, the patient was injected intravenously with 30.8 mCi of Tc-99m Myoview and exercise continued f or approximately 1 minute. Gated post-stress tomographic imaging wa s performed approximately 30 minutes after stress EKG Findings The resting EKG demonstrated normal sinu s rhythm . The stress EKG demonstrated ST depressions of 1.5 mm in the inferolateral leads at peak exercise which are suggestive of ex ercise-induced ischemia. Occasional PVCs were noted. Tomographic Findings Overall, the study quality is good . On the stress images, small to medium-sized perfusion defect of moderat e severity involving the mid to basal inferior wall and the basal inf erolateral wall is noted. On the rest images,perfusion is normal with the exception of a mild reduction in counts in the basal inferio r and inferolateral wall . Gated images demonstrated mild global hy pokinesis of the left ventricle. The left ventricular ejection fraction was calculated to be 43% at rest and 39% on the post stress i mages. TID was absent. 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
--- OUTSIDE RECORDS SUMMARY | 2022-05-02 12:41 | XMS_ITS | Encounter Summary ---
:1950 Author Organization [place] Address [address] [facility] [place] [address] Care Team Providers Name Role Phone Anatoliy Jackson MD Primary Care Provider Heath More MD Unavailable Reason for Visit (Routine) - Closed Specialty Diagnoses / Procedures Referred By Contact Refer red To Contact Radiology / Radiology. Diagnoses Epic, sb pt pt wt 215 pt is holding BT pt advised of all the prep pt is diabetic. Rh Nuclear Medicine Procedures NM SCAN3 [address] [place] [address] Phone: Fax: Referral ID Status Reason Start Date Expiration Date Visits Requ ested Visits Authorized [id number] Closed 12/26/2014 12/26/2015 1 1 Encounter Details Date Type Department Care Team Description 12/29/2014 Hospital Encounter M [facility] Imaging DO Kiaar [address] [facility] [address] [place], [place] [address] [phone] [place] [id number] (Wo rk) Social History Tobacco Use Types [...] MD [facility] [address] [place] [address] (Wo rk) 05/15/2022 Surgery Surgery Neo Torres MD BLEPHAROPLASTY BILATERAL [facility], [facility] PTOSIS REPAIR BILATERAL [address] [place] [address] (Wo rk) 06/25/2022 Ancillary Procedure Cardiology Kirk Silver MD [address] [place] [address] (Wo rk) Scheduled Procedures Name Priority Associated [...] chest discomfort during the test. The pa tiegiovana was not on a beta hong. Myocardial [...] TID was absent. TORIN GONZALEZ MD Hyacinth Kiara Plummer DO IMG NM ORDERABLES documented in this encounter Visit Diagnoses Not on filedocumented in this encounter Care Teams Plate Grainer Relationship Specialty Start Date End Date Anatoliy Jackson MD PCP - General 05/14/12 Heath More PCP - Internal Medicine INTERNAL MEDICINE - 01/06/14 MD Andreas ENDOCRINOLOGY, END[facility] [address] [phone] documented as of this encounter
--- OUTSIDE RECORDS SUMMARY | 2022-05-02 12:41 | XMS_ITS | Encounter Summary ---
:1950 Author Organization [place] Address [address] [facility] [place] [address] Care Team Providers Name Role Phone Anatoliy Jackson MD Primary Care Provider Heath More MD Unavailable Reason for Visit (Routine) - Closed Specialty Diagnoses / Procedures Referred By Contact Refer red To Contact Radiology / Radiology. Diagnoses Epic, sb pt pt wt 215 pt is holding BT pt advised of all the prep pt is diabetic. Rh Nuclear Medicine Procedures NM INJ [address] [place] [address] Phone: Fax: Referral ID Status Reason Start Date Expiration Date Visits Requ ested Visits Authorized [id number] Closed 12/26/2014 06/24/2015 1 1 Encounter Details Date Type Department Care Team Description 12/29/2014 Hospital Encounter M [facility] Imaging Kiara DO [address] [place], [place] [address] [phone] [place], [place] [phone] (Wo rk) Social History Tobacco Use Types [...] [address] [place] [id number] (Wo rk) 05/15/2022 Surgery Surgery Neo Torres MD BLEPHAROPLASTY BILATERAL [facility], [facility] & [facility] PTOSIS REPAIR BILATERAL [address] [place] [id number] (Wo rk) 06/25/2022 Ancillary Procedure Cardiology Kirk Silver MD [address] [place] [address] (Wo rk) Scheduled Procedures Name Priority Associated [...] chest discomfort during the test. The pa javon was not on a beta hong. Myocardial [...] was absent. TORIN GONZALEZ MD Hyacinth Plummer DO IM NM ORDERABLES documented in this encounter Visit Diagnoses Not on filedocumented in this encounter Care Teams Commercial Trailer Truck Driver Relationship Specialty Start Date End Date Anatoliy Jackson MD PCP - General 05/14/12 Heath More PCP - Internal Medicine INTERNAL MEDICINE - 01/06/14 MD Andreas ENDOCRINOLOGY, END[facility]INE [facility] [address] [phone] documented as of this encounter
--- OUTSIDE RECORDS SUMMARY | 2022-05-02 12:41 | XMS_ITS | Encounter Summary ---
:1950 Author Organization [place] Address [address] [facility] [place] [address] Care Team Providers Name Role Phone Anatoliy Jackson MD Primary Care Provider Heath More MD Unavailable Reason for Referral - Closed Specialty Diagnoses / Procedures Referred By Contact Refer red To Contact Diagnoses CAD (coronary artery disease) [facility] [address] [facility] [address] [place] [phone] Referral ID Status Reason Start Date Expiration Date Visits Requ ested Visits Authorized [id number] Closed 03/26/2015 03/25/2016 1 1 Scheduling Instructions For symptoms of fatigue, sob. Would like coronary intervention prior to prostate surgery. Reason for Visit Reason Onset Date Comments Patient Request 03/08/2015 Has questions regard ing plan of care Encounter Details Date Type Department Care Team Description 03/08/2015 Telephone [facility] Heart Tabitha, Patient Request (Has Clinic Anu Allen RN questions regarding plan [address] [facility] [place] [address] Social History Tobacco Use Types Packs/Day Years Used Date Never Smoker Alcohol Use Standard Drinks/Week Comments Yes 0 (1 standard drink = 0.6 oz pure alcoho l) occasionally Sex Assigned at Date Recorded Male 03/12/2021 12:11 PM CDT documented as of this encounter Miscellaneous Notes Addendum Note - Tiffany Schaefer RN - 03/26/2015 3:29 PM CDT Addended by: TIFFANY SCHAEFER on: 03/26/2015 03:29 PM Modules accepted: Orders, SmartSet Telephone Encounter - Tiffany Schaefer RN - 03/26/2015 3:08 PM CDT Spoke with pt's (Mihcaela), pt was not at home at time of my call, she expects him back in about 20 minutes. Discussed 's recommendation regarding coronary intervention, and setting up an appointment with (Cosme performed his initial cath). said pt is very symptomatic and would like him to make an appointment with as soon as possible. They are going hiking mid April to the [facility] in [place]. Told her I would check with scheduling for first available appointment with . Spoke with scheduling, first available appointment is May. Scheduling will call patient. Consult order entered in SlapV[employer]. Telephone Encounter - Hyacinth Plummer DO - 03/26/2015 8:02 AM CDT If he is symptomatic (GRADY) I would send him to see Cosme about intervention. Cosme performed his initial cath. Telephone Encounter - Ariella Rivas RN - 03/21/2015 3:40 PM CDT Pt called back to report that he has spoken by phone with his urologist, Dr Gipson, regarding his recent PSA - 4.05. He states that urology told him that the PSA is decreased but still elevated and thathe might recheck the PSA level in 6 months. Pt states that he is planning a camping/hiking trip ([employer] to the [facility] in [place] in mid April. He is asking if he should be considering having coronary intervention before he goes on the trip because the PSA level was a little improved this time. He is worried that if he waits too long to have coronary intervention that then he would have to postpone any future prostate procedure if he has a new JAVIER. He denies chest pain but does have fatigue and shortness of breath with exertion (strenuous yardwork or long walks). Shortness of breath goes away with rest. Pt is willing to come for an appt if needed to discuss this further with Dr Plummer. Will message Dr Plummer to review and advise. [place] Telephone Encounter - Brenda Concepcion RN - 03/19/2015 1:05 PM CDT Pt called and left message saying he had questions about possible timing for a coronary interventionand the current prostate issues he is having. I left message for pt to call back to discuss further.Chandana KELLY Telephone Encounter - Tiffany Schaefer RN - 03/08/2015 1:35 PM CDT Patient calling today with questions regarding what the next step is to take as far as coronary intervention. Pt has prostate issues (elevated PSA), he followed up with his urologist and PSA number decreased from last time I was told I am in a [place] area for now. He was seen by on 02/23/15 ,per her dictation:He will very likely need coronary intervention within the next year or two, giventhat he has optimal control of his risk factors, but evidence of progression of coronary disease. For now, he seems stable from a cardiac perspective and will continue his medical management and I willbe in contact with his urologist to discuss the management of both his heart as well as in timing with his prostate issues I informed patient that is out of the office this week but that I would update her. Pt would like to know if he needs another appointment to discuss what he needs to do next. He and his will be out of town mid April. I told him I would call him back with 's recommendations. documented in this encounter Plan of Treatment Upcoming Encounters Date Type Specialty Care Team Description 05/15/2022 Hospital Encounter Surgery Singh Torres MD [facility] [address] [place] [address] (Wo rk) 05/15/2022 Surgery Surgery Neo Torres MD BLEPHAROPLASTY BILATERAL [facility], [facility] PTOSIS REPAIR BILATERAL [address] [place] [address] (Wo rk) 06/25/2022 Ancillary Procedure Cardiology Kirk Silver MD [address] [place] [address] (Wo rk) Scheduled Procedures Name Priority Associated [...] S chedule Follow-Up with Referral Routine CAD (coronary artery Expec ambrosio: 03/26/2015 Senior Net Developer Architect disease) (Approximate), Expires: 2015 documented as of this encounter Visit Diagnoses Diagnosis CAD (coronary artery disease) - Primary Coronary atherosclerosis of unspecified type of vessel, kiana or graft 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
--- OUTSIDE RECORDS SUMMARY | 2022-05-02 12:41 | XMS_ITS | Encounter Summary ---
:1950 Author Organization [place] Address [address] [facility] [place] [address] Care Team Providers Name Role Phone Anatoliy Jackson MD Primary Care Provider Heath More MD Unavailable Anna Gipson MD Unavailable Reason for Visit Reason Comments Heart Problem Intervention Consult- angina , multivessel CAD - Closed Specialty Diagnoses / Procedures Referred By Contact Refer red To Contact Diagnoses CAD (coronary artery disease) [facility] [address] [facility] [address] [place] [phone] Referral ID Status Reason Start Date Expiration Date Visits Requ ested Visits Authorized [id number] Closed 03/26/2015 03/25/2016 1 1 Encounter Details Date Type Department Care Team Description 04/02/2015 Office Visit [facility] Mirian Plummer DO [address] [place] [id number] Angina pectoris (H) (Primary Dx); Heart Clinic Anna Fairchild MD [address] [place] [address] CAD (coronary artery disease); [address] [facility] Abnormal nuclear stress test; [address] Coronary artery disease [place] [phone] Social History Tobacco Use Types Packs/Day Years Used Date Never Smoker Alcohol Use Standard Drinks/Week Comments Yes 0 (1 standard drink = 0.6 oz pure alcoho l) occasionally Sex Assigned at Date Recorded Male 03/12/2021 12:11 PM CDT documented as of this encounter Last Filed Vital Signs Vital Sign Reading Time Taken Comments Blood Pressure 124/68 04/02/2015 11:10 left arm, large cuff AM CDT Pulse 56 04/02/2015 11:10 AM CDT Temperature - - Respiratory Rate - - Oxygen Saturation - - Inhaled Oxygen - - Concentration Weight 97.8 kg (215 lb 9.6 04/02/2015 11:10 oz) AM CDT Height 180.3 cm (5' 11) 04/02/2015 11:10 AM CDT Body Mass Index 30.07 04/02/2015 11:10 AM CDT documented in this encounter Progress Notes nAna Aguiar MD - 04/02/2015 12:16 PM CDT HPI and Plan: This is a 64-year-old gentleman who was referred for evaluation regarding revascularization with PCI. He has coronary artery disease and this spring and summer has had progressive and limiting dyspnea on exertion and exertional fatigue which he can avoid if he paces himself. This is been consistent with an anginal equivalent. He underwent angiography several months ago demonstrating 3 hemodynamicallysevere lesions involving the distal right coronary artery and PDA, a second obtuse marginal, and thedistal circumflex before significant sized third and fourth obtuse marginals. Further medical therapy was tried and he notes no improvement in his activity tolerance. His is convinced that he is actually able to do less and less as the months go by. He is not having rest episodes or episodes withjust activity in the house but if he tries to do yard work it is very difficult and he can no longerdo that very well. He also likes to hike a lot and cannot do that unless it is short and on level ground. He is not having resting shortness of breath, other discomfort with activity, palpitations or syncope. He has several years of intermittent dizziness for less than 30 seconds without severe dizziness or syncope. This has not changed recently and he does not think it is been aggravated by his medical therapy. His resting heart rate is now in the 50s so further beta hong therapy is not likely to be tolerated. His diabetes was poorly controlled last year because of some problems with this injection site but now is well-controlled. Last year his LDLs were well-controlled until his diabetes control was poor, now awaiting to see if there better control with better diabetes control. He is a nonsmoker, and blood pressure well controlled. His ejection fraction is normal. He had an abnormal stress study and in addition his coronary lesions were confirmed to be hemodynamically severe by FFR severalmonths ago. He has an enlarged prostate and recently his PSA went above normal limits although on a follow up atwent back almost to normal limits. With his last meeting with his urologist the recommendations wereto wait 6 months and reassess. Blood pressure is well-controlled, rhythm is regular, pulse is less than 60. Cardiac, pulmonary, andperipheral vascular exams are normal. See remainder of exam noted below. Impression/plan 1-progressive and limiting dyspnea on exertion and exertional fatigue as an anginal equivalent. 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 Normal ejection fraction. I had an extensive discussion with him and his today regarding potential for further attempt medical therapy versus proceeding with stenting, probably with rotational atherectomy, of his branch vessel disease. Given how limiting his symptoms currently are for his normal lifestyle and quality of life and thatthey seem to be progressive despite multiple medical therapies and good risk factor control, it is difficult to predict if additional medical therapy will have sufficient improvement in his symptomatology. However it is certainly okay to try that. He certainly could proceed with any urologic evaluation and surgery as needed at this point in time but if he has stenting will need to wait at least 6 months. With his most recent conversation with his urologist he did not think there were plans to anything in the next 6 months. I will try to confirm this by contacting his urologist in the next couple ofdays. After this discussion, as well as reviewing the other indications risks and limitations of stenting he would like to proceed with stenting unless his urologist and he needs significant reevaluation before 6 months. I did discuss that normal dual antiplatelet therapy is for a year after drug-eluting stents, however, if zotarolimus drug-eluting stents were placed the risk of a one-week interruption or so of dual antiplatelet therapy after 6 months is very low and could be managed if necessary, based on current data. After this discussion he wants to proceed within the next week or so, given his schedule in April, assuming no concerns from his urologist about waiting 6 months. I will plan for this at this time. Thank you for having me see this nice gentleman. Orders Placed This Encounter Procedures ??? EKG 12-lead complete w/read - Clinics (performed today) No orders of the defined types were placed in this encounter. There are no discontinued medications. Encounter Diagnoses Name Primary? Angina pectoris Yes ??? CAD (coronary artery disease) ??? Abnormal nuclear stress test ??? Coronary artery disease CURRENT MEDICATIONS: Current Outpatient Prescriptions Medication Sig Dispense Refill ??? simvastatin (ZOCOR) 40 MG tablet Take 40 mg by mouth At Bedtime ??? fluticasone (FLONASE) 50 MCG/ACT nasal spray [address] 2 sprays into both nostrils daily ??? cloNIDine (CATAPRES) [...] month 0 ??? SYRINGE B-D MICRO FINE 2 CC SYRINGES as directed 100 prn ??? [...] Other Topics Concern ??? Caffeine Concern Yes 2-3 cups daily ??? Weight Concern No ??? Special Diet Yes counts carbs, diabetic diet ??? Exercise No yardwork Social History Narrative Review of Systems: Skin: Negative Eyes: Positive for glasses ENT: Positive for postnasal drainage Respiratory: Positive for dyspnea on exertion;cough Cardiovascular: Negative;chest pain;palpitations;cyanosis;syncope or near- syncope lightheadedness;dizziness;Positive for;exercise intolerance;fatigue Gastroenterology: Negative Genitourinary: Positive for prostate problem Musculoskeletal: Positive for arthritis Left elbow swelling Neurologic: Negative Psychiatric: Heme/Lymph/Imm: Positive for allergies Endocrine: Positive for diabetes Physical Exam: Vitals: BP 124/68 mmHg Pulse 56 Ht 1.803 m (5' 11) Wt 97.796 kg (215 lb 9.6 oz) BMI 30.08 kg/m2 Constitutional: cooperative;in no acute distress Skin: warm and dry to the touch Head: normocephalic Eyes: pupils equal and round;sclera white ENT: no pallor or cyanosis Neck: JVP normal Chest: normal symmetry;normal respiratory excursion Cardiac: regular rhythm Abdomen: Vascular: 2+ 2+ right radial cather insertion site c/d/i, no bleeding, no echymossis, good distal pulses and normal range of motion Extremities and Back: no edema trace ankle edema Neurological: affect appropriate, oriented to time, person and place;no gross motor deficits CC Anatoliy Jackson MD [facility] [address] [place] [address] documented in this encounter Plan of Treatment Upcoming Encounters Date Type Specialty Care Team Description 05/15/2022 Hospital Encounter Surgery Singh Torres MD [facility] [address] [place] [id number] (Wo rk) 05/15/2022 Surgery Surgery Neo Torres MD BLEPHAROPLASTY BILATERAL [place] [facility] PTOSIS REPAIR BILATERAL [address] [place] [id number] (Wo rk) 06/25/2022 Ancillary Procedure Cardiology Kirk Silver MD [address] [place] [id number] (Wo rk) Scheduled Procedures Name Priority Associated [...] Date/Time Associated Diagnosis Comme nts EKG 12-LEAD COMPLETE Routine 04/02/2015 CAD (coronary artery Results for this W/READ - CLINICS disease) procedure are in the Abnormal nuclear results sec tion. stress test Coronary artery disease documented in this encounter Results Outpatient Coronary Angiography Adult Order (04/09/2015 11:13 [...] anesthetized usi ng 1% lidocaine. A 6 [place]an sheath was inserted using a through and through micropuncture technique. 2.5 mg verapamil and 200 mcg of intra-arterial nitroglycerin were given. Intravenous he zoltan were given. Selective coronary cineangiography pf the left cor onary system was performed in multiple projections using a 6 [place]an EB U 3.5 guide catheter. After reviewing [...] an eccentric calcified lesion. And a 6 [place] GuideLiner was then used for extra support, [...] OM2 was t hen re-crossed with a Network Consultant 50 guidewire, however advancement of a 1.5 x 8 Botkins Push balloon was unsuccessful. Due to the [...] Aguiar (Attending) 2. Dr. Greenfield (Interventional [facility]) Procedure Note Anna Aguiar MD - 04/09/2015Fo rmatting of this note might be different from the original. PROCEDURES PERFORMED: 1. Percutaneous Coronary Intervention to the mid Left Circumflex with a JAVIER 2. PCI of the OM2 with a JAVIER 3. PCI of the ostial and proximal LCx wi th a JAVIER OPERATORS: 1. Dr. Anna Aguiar (Attending) 2. Dr. Greenfield (Interventional [facility]) IMPRESSION IMPRESSION: 1. Successful PCI to mid-LCX [...] he notes no improvement in his activity baltzaar erance. His is convinced that he is [...] anesthetized usi ng 1% lidocaine. A 6 [place]an sheath was inserted using a through and through micropuncture technique. 2.5 mg verapamil and 200 mcg of intra-arterial nitroglycerin were given. Intravenous he zoltan were given. Selective coronary cineangiography pf the left cor onary system was performed in multiple projections using a 6 [place] EB U 3.5 guide catheter. After reviewing [...] an eccentric calcified lesion. And a 6 [place] GuideLiner was then used for extra support, [...] OM2 was the n re-crossed with a Network Consultant 50 guidewire, however advancement of a 1.5 x 8 Botkins Push balloon was unsuccessful. Due to the [...] Anna Aguiar MD CV CARDIAC CATH ORDERABLES EKG 12-lead complete w/read - Clinics (performed today) (04/02/2015) Narrative This result has an attachment that is no t available. 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
--- OUTSIDE RECORDS SUMMARY | 2022-05-02 12:41 | XMS_ITS | Encounter Summary ---
:1950 Author Organization [place] Address [address] [facility] [place] [address] Care Team Providers Name Role Phone Anatoliy Jackson MD Primary Care Provider Heath More MD Unavailable Encounter Details Date Type Department Care Team Description 01/03/2015 [facility] Torie Post stress test (Primary Dx); Heart Clinic [place] Joe RN Abnormal stress test [address] [facility] [address] [place] [phone] Social History Tobacco [...] [address] [place] [id number] (Wo rk) 05/15/2022 Surgery Surgery Neo Torres MD BLEPHAROPLASTY BILATERAL [facility] [facility] PTOSIS REPAIR BILATERAL [address] [place] [phone] (Wo rk) 06/25/2022 Ancillary Procedure Cardiology Kirk Silver MD [address] [place] [id number] (Wo rk) Scheduled Procedures Name Priority Associated [...] ptosis documented in this encounter Care Teams Boardinghouse Keeper Relationship Specialty Start Date End Date Anatoliy Jackson MD PCP - General 05/14/12 Heath More PCP - Internal Medicine INTERNAL MEDICINE - 01/06/14 MD Andreas ENDOCRINOLOGY, [facility] [address] [place] [phone] documented as of this encounter
--- OUTSIDE RECORDS SUMMARY | 2022-05-02 12:41 | XMS_ITS | Encounter Summary ---
:1950 Author Organization [place] Address [address] [facility] [place] [address] Care Team Providers Name Role Phone Anatoliy Jackson MD Primary Care Provider Heath More MD Unavailable Peter Gipson MD Unavailable Encounter Details Date Type Department Care Team Description 09/28/2013 Historic Results [facility] Heart Unknown, [facility] ider Clinic [address] [place] [phone] Social History Tobacco [...] [address] [place] [id number] (Wo rk) 05/15/2022 Surgery Surgery Neo Torres MD BLEPHAROPLASTY BILATERAL [facility] PTOSIS REPAIR BILATERAL [address] [place] [address] (Wo rk) 06/25/2022 Ancillary Procedure Cardiology Kirk Silver MD [address] [place] [address] (Wo rk) Scheduled Procedures Name Priority Associated [...] Priority Date/Time Associated Diagnosis Comme nts US VASCULAR - HIM SCAN 09/28/2013 12:00 AM HOCKEY SCOUT - ARCHIVE documented in this encounter Results US VASCULAR - HIM SCAN - ARCHIVE (09/28/2013 12:00 AM HOCKEY SCOUT) Specimen (Source) Anatomical Location Collection Method / Collectio n Time Received Time / Laterality Volume 09/28/2013 Narrative This result has an attachment that is no t available. Provider Scan IMG US ORDERABLES documented in this encounter Visit Diagnoses Not on filedocumented in this encounter Care Teams Paradichlorobenzene Machine Operator Relationship Specialty Start Date End Date Anatoliy Jackson MD PCP - General 05/14/12 Heath More PCP - Internal Medicine INTERNAL MEDICINE - 01/06/14 MD Andreas ENDOCRINOLOGY, [facility] [address] [place] [phone] Peter Gipson PCP - Urology 04/02/15 MD Jordan [facility] [address] [place] [address] [address] [place], [place] [id number] documented as of this encounter
--- OUTSIDE RECORDS SUMMARY | 2022-05-02 12:41 | XMS_ITS | Encounter Summary ---
:1950 Author Organization [place] Address [address] [facility] [place] [address] Care Team Providers Name Role Phone Anatoliy Jackson MD Primary Care Provider Heath More MD Unavailable Encounter Details Date Type Department Care Team Description 01/04/2015 Telephone [facility] Heart Brenda Concepcion, RN [id number] [place] [phone] Social History Tobacco Use Types Packs/Day Years Used Date Never Smoker Alcohol Use Standard Drinks/Week Comments Yes 0 (1 standard drink = 0.6 oz pure alcoho l) occasionally Sex Assigned at Date Recorded Male 03/12/2021 12:11 PM CDT documented as of this encounter Miscellaneous Notes Telephone Encounter - Brenda Concepcion, RN - 01/04/2015 10:21 AM CDT Pt called and left message requesting a copy of his cath report, which he will orange picker at his OV with [place] tomorrow. I also received message from Pina, our refill nurse, saying pt left message with her wondering if he should continue taking his pletal now that he has been started on plavix. Pt currently out of it and needs to orange picker script before he leaves for [place] tomorrow. I reviewed with and he said that pt should stop at this time but call and let us know if he has any claudication symptoms.I called pt and reviewed with him. Pt wondering if his real estate underwriter should be consultedabout his new bp medicine, amlodipine, and whether ok for him to take with his other bp meds. I toldpt that placed him on it to help improve blood flow to his heart, and that his bp can be assessed at OV with [place] tomorrow. Chandana KELLY documented in this encounter Plan of Treatment Upcoming Encounters Date Type Specialty Care Team Description 05/15/2022 Hospital Encounter Surgery Singh Torres MD [facility] [address] [place] [address] (Wo rk) 05/15/2022 Surgery Surgery Neo Torres MD BLEPHAROPLASTY BILATERAL [facility], [facility] & [facility] PTOSIS REPAIR BILATERAL [address] [place] [address] (Wo rk) 06/25/2022 Ancillary Procedure Cardiology Kirk Silver MD [address] [place] [address] (Wo rk) Scheduled Procedures Name Priority Associated [...] on filedocumented in this encounter Care Teams Army Ranger Relationship Specialty Start Date End Date Anatoliy Jackson MD PCP - General 05/14/12 Heath More PCP - Internal Medicine INTERNAL MEDICINE - 01/06/14 MD Andreas ENDOCRINOLOGY, ENDOCRINE [facility] [address] [place] [address] [place] [phone] documented as of this encounter
--- OUTSIDE RECORDS SUMMARY | 2022-05-02 12:41 | XMS_ITS | Encounter Summary ---
:1950 Author Organization [place] Address [address] [facility] [place] [address] Care Team Providers Name Role Phone Anatoliy Jackson MD Primary Care Provider Heath More MD Unavailable Encounter Details Date Type Department Care Team Description 01/03/2015 Hospital Encounter [facility] Jerome Vasquezshar [facility] post coronary angiogram (Primary Dx); [facility] Termite Technician MD Pedro Coronary artery disease; [address] Unspecified essential hypert ension; [place] [place] [address] Coronary atherosclerosis of unspecified type of vessel, [place] or graft [id number] [place], [place] [phone] [address] Social History Tobacco Use Types Packs/Day Years Used Date Never Smoker Alcohol Use Standard Drinks/Week Comments Yes 0 (1 standard drink = 0.6 oz pure alcoho l) occasionally Sex Assigned at Date Recorded Male 03/12/2021 12:11 PM CDT documented as of this encounter Last Filed Vital Signs Vital Sign Reading Time Taken Comments Blood Pressure 157/68 01/03/2015 5:15 PM CDT Pulse - - Temperature 37.1 ??C (98.8 ??F) 01/03/2015 12:00 PM CDT Respiratory Rate 20 01/03/2015 12:00 PM CDT Oxygen Saturation 95% 01/03/2015 12:00 PM CDT Inhaled Oxygen Concentration - - Weight 100.2 kg (221 lb) 01/03/2015 12:00 PM CDT Height 180.3 cm (5' 11) 01/03/2015 12:00 PM CDT Body Mass Index 30.82 01/03/2015 12:00 PM CDT documented in this encounter Discharge Instructions Discharge InstructionsEliza Pond RN - 01/03/2015 4:34 PM CDT Images from the original note were not included. Discharge Instructions for Coronary Angioplasty and Stenting During your angioplasty,??a doctor inserts a thin tube called a catheter into a blood vessel??in your groin or wrist. The??catheter is pushed through your blood vessel to a blocked area in one of your heart???s arteries. The doctor inflates a tiny balloon at the tip of the catheter and stretches the blocked vessel so blood can flow freely. The balloon is then deflated and removed with the catheter. The doctor may also insert a metal mesh tube called a stent in the blocked vessel.?The stent helps the vessel stay open. Home care ?? Ask someone to drive you to your appointments for the next few days. ?? Rest for??2 to 3??days after the procedure. Most people are able to resume normal activity withina few days. ?? Take your temperature and check your incision for signs of infection (redness, swelling, drainage, or warmth) every day for a week. It is normal to have a small bruise or bump where the catheter wasinserted. ?? Take your medications exactly as directed. Don???t skip doses. It is important to take aspirin orother similar drugs for as long as your doctor advises.If you were also prescribed clopidogrel, prasugrel, or ticagrelor, it is very important to take these medications, as well. These drugs prevent clots that could cause a heart attack. If you have??a problem with any of your drugs, call your doctor right away. ?? Unless directed otherwise, stay hydrated??to help flush your body of the dye that was used duringyour angioplasty. ?? Eat a healthy diet that is low in fat, salt, and cholesterol. Ask your doctor for menus and otherdiet information. ?? Exercise according to your doctor's recommendation. Depending on your situation, your doctor may recommend you start a cardiac rehabilitation program. ?? Avoid swimming or taking baths for 5 to 7 days. You may shower the day after the procedure. Follow-up care Make a follow-up appointment as directed by our staff. ?? When to call your doctor Call your doctor immediately if you have any of the following: ?? Chest pain or a return of the symptoms you had prior to the angioplasty ?? Constant or increasing pain or numbness in your leg, or if your leg looks blue or feels cold ?? Fever above??100.4??F??(38.0??C) or other signs of infection (redness, swelling, drainage, or warmth at the incision site of the leg or wrist) ?? Shortness of breath ?? Bleeding, bruising, or a large swelling where the catheter (tube) was inserted ?? Blood in your urine ?? Black or tarry stools ?? [id number] [employer]. [address] [place] [address]. All rights reserved. This information is not intended as a substitute for professional medical care. Always follow your healthcare professional's instructions. documented in this encounter Medications at Time [...] Coronary atherosclerosis of unspecified type of vessel, shoshone-bannock or graft aspirin 325 MG tablet Take 81 mg by mouth 0 02/18/2021 daily atorvastatin (LIPITOR) 40 Take 40 mg by mouth 0 02/23/2015 MG tablet daily carvedilol (COREG) 12.5 Take 1 tablet (12.5 180 tablet 3 07/09/2015 MG tabletIndications: HTN mg) by mouth 2 (hypertension) times daily (with meals) cilostazol (PLETAL) 50 MG Take 50 mg by mouth 0 01/04/2015 tablet 2 times daily cloNIDine (CATAPRES) 0.1 Take 0.1 mg by 0 04/18/2021 MG tablet mouth 2 times daily clopidogrel (PLAVIX) 75 Take 1 tablet (75 90 tablet 3 01/0404/18/2015 MG tabletIndications: mg) by mouth daily Status post coronary angiogram, Coronary atherosclerosis of unspecified type of vessel, shoshone-bannock or graft GABAPENTIN PO Take 300 mg by 0 [...] pain not relieved then seek medical attention tamsulosin (FLOMAX) 0.4 Take 0.4 mg by 0 04/11/2016 MG 24 hr capsule mouth At Bedtime documented as of this encounter Plan of Treatment Upcoming Encounters Date Type Specialty Care Team Description 05/15/2022 Hospital Encounter Surgery Singh Torres MD [facility] [address] [place] [phone] (Wo rk) 05/15/2022 Surgery Surgery Neo Torres MD BLEPHAROPLASTY BILATERAL [facility] PTOSIS REPAIR BILATERAL [address] [place], [place] [phone] (Wo rk) 06/25/2022 Ancillary Procedure Cardiology Kirk Silver MD [address] [place] [address] (Wo rk) Scheduled Orders Name Type Priority Associated Diagnoses Order S chedule EKG 12-lead, tracing EKG STAT Enter c ondition for order only release in comm ents for 1 Occurrences sta rting 01/03/2015 Scheduled Procedures Name Priority Associated Diagnoses Date/Time [...] Associated Diagnosis Comme nts CORONARY ANGIOGRAPHY Routine 01/03/2015 3:38 Coronary artery R esults for this ADULT ORDER PM CDT disease procedure are in Unspecified the results essential section. hypertension GLUCOSE BY METER Routine 01/03/2015 1:45 Coronary artery Resul ts for this PM CDT disease procedure are i n the results section. INR STAT 01/03/2015 11:35 Coronary artery Results for this AM CDT disease procedure are i n the results section. PARTIAL THROMBOPLASTIN STAT 01/03/2015 11:35 Coronary arter y Results for this TIME AM CDT disease procedure are i n the results section. BASIC METABOLIC PANEL STAT 01/03/2015 11:35 Coronary artery Results for this AM CDT disease procedure are i n the results section. CBC WITH PLATELETS STAT 01/03/2015 11:35 Coronary artery Re sults for this AM CDT disease procedure are i n the results section. [...] He is leaving on a trip to [place] ??2 days. Will sánchez recommended in increasing [...] and a modified Slava's test, a 6 Liberian slende r glide sheath was placed in the right radial artery. Catheters were advanced over guidewire into the aortic root. All catheter exchanges were done with an exchange wire. Successful diagnostic catheters we re 5 Liberian TIG. FFR performed with a 5 Liberian TIG. A Chondrial Therapeuticso wire was prepared and advanced out the [...] performed, the successful catheter ??was a ??6 Liberian pigtail. Following review of results, the catheter was keyon shyla over a guidewire, the radial sheath was removed and hemostasis obtained with a TR band, and the patient transferred back to the care unit. Total contrast was 140 cc Isovue-370. Fluoroscopy time was 8.8 minutes. Conscious sedation was used throughout the procedure under my supervision. ANNA AGUIAR MD Procedure Note Anna Aguiar MD - 01/03/2015Fo rmatting of this note [...] symptom pattern has not changed in the month PROCEDURES PERFORMED: 1. Selective coronary angiography [...] He is leaving on a trip to [place] 2 days. Bates pari recommended in increasing his medical regimen and [...] and a modified Slava's test, a 6 Liberian slende r glide sheath was placed in the right radial artery. Catheters were advanced over guidewire into the aortic root. All catheter exchanges were done with an exchange wire. Successful diagnostic catheters we re 5 Liberian TIG. FFR performed with a 5 Liberian TIG. A volcano wire was prepared and [...] performed, the successful catheter was a 6 Liberian pigtail. Following review of results, the catheter was keyon shyla over a guidewire, the radial sheath was removed and hemostasis obtained with a TR band, and the patient transferred back to the care unit. Total contrast was 140 cc Isovue-370. Fluoroscopy time was 8.8 minutes. Conscious sedation was used throughout the procedure under my supervision. ANNA AGUIAR MD Christiano Vasquez MD CV CARDIAC CATH ORDERABLES (ABNORMAL) Glucose by meter (01/03/2015 1:45 PM CDT) athologist Signature Glucose 152 (H) 70 - 99 POINT OF CARE mg/dL TEST, GLUCOSE Specimen Anatomical Collection Method Collection Time Receive d Time (Source) Location / / Volume Laterality 01/03/2015 1:45 PM 5 1:50 CDT PM CDT Christiano Vasquez MD LAB - BEAKER POCT Performing Organization Address City/[facility]/ZIP [facility] [place] Phon e Number FV POINT OF CARE TEST, GLUCOSE POINT OF CARE TEST, GLUCOSE Partial thromboplastin time (01/03/2015 11:35 AM CDT) athologist Signature PTT 28 22 - 37 sec [facility] Specimen Anatomical Collection Method Collection Time Receive d Time (Source) Location / / Volume Laterality Blood specimen 01/03/2015 11:35 5 (specimen) AM CDT 11:43 AM CDT Christiano Vasquez MD LAB - BLOOD ORDERABLES Performing Organization Address [facility] Phon e Number [place] [address] [address] [place] [address] [phone] INR (01/03/2015 11:35 AM CDT) athologist Signature INR 1.00 0.86 - 1.14 [facility] Specimen Anatomical Collection Method Collection Time Receive d Time (Source) Location / / Volume Laterality Blood specimen 01/03/2015 11:35 5 (specimen) AM CDT 11:43 AM CDT Christiano Vasquez MD LAB - BLOOD ORDERABLES Performing Organization Address City/[facility]/ZIP [facility] [place] Phon e Number M [facility] [address] [place], [place] [address] [facility] [address] [place], [place] [address], [facility] [phone] (ABNORMAL) CBC with platelets (01/03/2015 11:35 AM CDT) Analysis Performed At Patho logist Time Signature WBC 8.8 4.0 - 11.0 [place] 10e9/L [facility] RBC Count 4.30 (L) 4.4 - 5.9 [place] 10e12/L [facility] Hemoglobin 12.3 (L) 13.3 - [place] 17.7 g/dL [facility] Hematocrit 36.1 (L) 40.0 - [place] 53.0 % [facility] MCV 84 78 - 100 [facility] MCH 28.6 26.5 - [place] 33.0 pg [facility] MCHC 34.1 31.5 - [place] 36.5 g/dL [facility] RDW 12.8 10.0 - [place] 15.0 % [facility] Platelet Count 161 150 - [address] Specimen Anatomical Collection Method Collection Time Receive d Time (Source) Location / / Volume Laterality Blood specimen 01/03/2015 11:35 5 (specimen) AM CDT 11:43 AM CDT Christiano Vasquez MD LAB - BLOOD ORDERABLES Performing Organization Address City/[facility]/ZIP Code Phon e Number M [facility] [address] [place], [place] [address] [place] [address] [address] [place], [place] [address] [phone] (ABNORMAL) Basic metabolic panel (01/03/2015 11:35 AM CDT) P athologist Signature Sodium 136 133 - 144 [place] mmol/L [facility] Potassium 5.0 3.4 - 5.3 [place] mmol/L [facility] Chloride 108 94 - 109 [place] mmol/L [facility] Carbon Dioxide 23 20 - 32 [place] mmol/L [facility] Anion Gap 5 3 - 14 [place] mmol/L [facility] Glucose 237 (H) 70 - 99 [place] mg/dL [facility] Urea Nitrogen 42 (H) 7 - 30 [place] mg/dL [facility] Creatinine 1.08 0.66 - [place] 1.25 mg/dL [facility] GFR Estimate 69 >60 [place] mL/min/1.[address] Comment: Non GFR Calc GFR Estimate If Black 83 >60 mL/min/1.7m2 F [facility] Comment: GFR Calc Calcium 9.0 8.5 - 10.1 mg/dL [facility] Specimen Anatomical Collection Method Collection Time Receive d Time (Source) Location / / Volume Laterality Blood specimen 01/03/2015 11:35 5 (specimen) AM CDT 11:43 AM CDT Christiano Vasquez MD LAB - BLOOD ORDERABLES Performing Organization Address City/State/ZIP Code Phon e Number M [place] [address] [phone] documented in this encounter Visit Diagnoses Diagnosis Status post coronary angiogram - Primary Other postprocedural status Coronary artery disease Coronary atherosclerosis of unspecified type of vessel, shoshone-bannock or graft Unspecified essential hypertension Coronary atherosclerosis of unspecified type of vessel, shoshone-bannock or graft 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 Start at 0800 for inpatients. IF PATIENT IS RECEIVING RENAL DIALYSIS, RN to reduce rate of 0.9 % sodium chloride IV solution to 10 mL /hour (TKO) IV infusion to prevent fluid overload., Cardiac Pre-procedure, Starting on Thu01/03/15 at 1130, Until Leana 01/04/15 at 1055 adenosine (ADENOCARD) injection 12-12,000 Given 2014 3:07 PM CDT 6,000 mcg mcg 12-12,000 mcg, INTRACORONARY, EVERY 1 MIN PRN, when ordered by prescriber during procedure., Starting on Thu01/03/15 at 1422, Nursing to dilute as instructed by provider. Prescriber will infuse each dose. May repeat Q1 min PRN at the discretion of the provider., Cardiac Intra-procedure fentaNYL (SUBLIMAZE) injection 25-50 mcg Given 01/03/2015 2:53 PM CDT 50 mcg 25-50 mcg, Intravenous, EVERY 2 MIN PRN, moderate to severe pain, other, when verbally ordered by prescriber during the procedure., Starting on Thu01/03/15 at 1422, Doses can be exceeded under direct oversight of the patient by physician., Cardiac Intra-procedure heparin (porcine) injection 1,000-10,000 Given 015 3:07 PM CDT 3,000 Units Units 1,000-10,000 Units, Intravenous, EVERY 5 MIN PRN, other, bolus dose, Starting on Thu01/03/15 at 1422, when verbally ordered by prescriber during procedure. Up to a max of 25,000 units. Physician may request an additional bolus., Cardiac Intra-procedure iopamidol (ISOVUE-370) 76% solution 100 mL Given 01/03/2015 3:00 PM CDT 140 mLs 100 mL, INTRA-ARTERIAL, ONCE, On Thu01/03/15 at 1500, For 1 dose lidocaine 1 % injection 1-10 mL Given by Other 01/03/2015 3:14 PM CDT 4 mLs 1-10 mL, Subcutaneous, ONCE PRN, For local anesthesia for groin puncture as verbally ordered by prescriber during the procedure., Starting on Thu01/03/15 at 1422, For 1 dose, The provider administers the medication. Dose may be into smaller doses for administration., Cardiac Intra-procedure midazolam (VERSED) injection 0.5-2 mg Given 01/03/2015 2:53 PM CDT 1 mg 0.5-2 mg, Intravenous, EVERY 2 MIN PRN, other, when verbally ordered by prescriber during the procedure., Starting on Thu01/03/15 at 1422, Doses can be exceeded under direct oversight of the patient by physician., Cardiac Intra-procedure nitroglycerin Cmpd syr inj, 10ml Given by Other 01/03/2015 3:16 PM CD T 200 mcg 100-500 mcg 100-500 mcg, INTRA-ARTERIAL, ONCE PRN, for radial artery sheath protocol, when verbally ordered by prescriber during the procedure, Starting on Thu01/03/15 at 1422, For 1 dose, Prescriber will administer the dose., Cardiac Intra-procedure verapamil (ISOPTIN) injection 1-2.5 Given by Other 01/03/2015 3 :17 PM CDT 1.25 mg mg 1-2.5 mg, INTRA-ARTERIAL, ONCE PRN, when verbally ordered by prescriber during procedure , Starting on Thu01/03/15 at 1422, For 1 dose, For radial or brachial access., Cardiac Intra-procedure documented in this encounter Active and Recently Administered Medications Times are shown in CDT. Scheduled Medication Order 01/01/2015 01/02/2015 01/03/2015 iopamidol (ISOVUE-370) 76% solution 100 mL (COMPLETED) 1500 (Given - Provider: Aida Saini) 100 mL, INTRA-ARTERIAL, ONCE, Thu01/03/15 at 1500, For 1 dose Continuous Medication Order 01/01/2015 01/02/2015 01/03/2015 0.9% sodium chloride infusion (CANCELED) 1200 (New Bag - Provider: Catherine Campbell RN) at 150 mL/hr, Intravenous, CONTINUOUS, 1 50 mL/hr IV for 3 hours prior to cardiac calibration laboratory technician procedure, then decrease to 75 mL/hr to run throughout the procedure. Start at 0800 for inpatients. IF PATIENT I S RECEIVING RENAL DIALYSIS, RN to reduce rate of 0.9 % sodium chloride IV solution to 10 mL /hour (TKO) IV infusion to prevent fluid overload., Cardiac Pre-procedure, Starting Thu01/03/15 at 1130, Until Leana 01/04/15 at 1055 PRN Medication Order 01/01/2015 01/02/2015 01/03/2015 adenosine (ADENOCARD) injection 12-12,000 mcg (CANCELED) 1507 (Given - Provider: Catherine Campbell RN) 12-12,000 mcg, INTRACORONARY, EVERY 1 WI N PRN, when ordered by prescriber during procedure., Starting Thu01/03/15 at 1422, Nursing to dilute as instructed by provider. Prescriber will infuse each dose. May repeat Q1 min PRN at the discretion of the provider., Cardiac Intra-procedure fentaNYL (SUBLIMAZE) injection 25-50 mcg (CANCELED) 1453 (Given - Provider: Catherine Campbell RN) 25-50 mcg, Intravenous, EVERY 2 MIN PRN, Starting Thu01/03/15 at 1422, moderate to severe pain, other, when verbally ordered by prescriber during the procedure., Doses can be exceeded under direct overs ight of the patient by physician., Cardiac Intra-procedure heparin (porcine) injection 1,000-10,000 Units (CANCELED) 1507 (Given - Provider: Catherine Campbell RN - Comment: bolus) 1,000-10,000 Units, Intravenous, EVERY 5 MIN PRN, other, bolus dose, Starting Thu01/03/15 at 1422, when verbally ordered by prescriber during procedure. Up to a max of 25,000 units. Physician may request an additional bolus., Cardiac Intra-procedure lidocaine 1 % injection 1-10 mL (COMPLETED) 151 (Given by Other - Provider: Catherine Campbell RN - Comment: Dr. Aguiar during proceudure) 1-10 mL, Subcutaneous, ONCE PRN, For loc al anesthesia for groin puncture as verbally ordered by prescriber during the procedure., Starting Thu01/03/15 at 1422, For 1 dose, The provider administers the m edication. Dose may be into sm aller doses for administration., Cardiac Intra-procedure midazolam (VERSED) injection 0.5-2 mg (CANCELED) 145 (Given - Provider: Catherine Campbell RN) 0.5-2 mg, Intravenous, EVERY 2 MIN PRN, Starting Thu01/03/15 at 1422, other, when verbally ordered by prescriber during the procedure., Doses can be exceeded under direct oversight of the patient by physician., Cardiac Intra-procedure nitroglycerin Cmpd syr inj, 10ml 100-500 mcg (COMPLETED) 151 (Given by Other - Provider: Catherine Campbell RN - Comment: Dr. Aguiar during procedure) 100-500 mcg, INTRA-ARTERIAL, ONCE PRN, f or radial artery sheath protocol, when verbally ordered by prescriber during the procedure, Starting Thu01/03/15 at 1422, For 1 dose, Prescriber will administer the dose., Cardiac Intra-procedure verapamil (ISOPTIN) injection 1-2.5 mg (COMPLETED) 1517 (Given by Other - Provider: Catherine Campbell RN - Comment: Dr. Aguiar during proceduire) 1-2.5 mg, INTRA-ARTERIAL, ONCE PRN, when verbally ordered by prescriber during procedure , Starting Thu01/03/15 at 1422, For 1 dose, For radial or brachial access., Cardiac Intra-procedure documented in this encounter Care Teams Cap Machine Operator Relationship Specialty Start Date End Date Anatoliy Jackson MD PCP - General 05/14/12 Heath More PCP - Internal Medicine INTERNAL MEDICINE - 01/06/14 MD Andreas ENDOCRINOLOGY, [facility] [address] [address] documented as of this encounter
--- OUTSIDE RECORDS SUMMARY | 2022-05-02 12:41 | XMS_ITS | Encounter Summary ---
:1950 Author Organization [place] Address [address] [place] [address] Care Team Providers Name Role Phone Anatoliy Jackson MD Primary Care Provider Reason for Visit Reason Onset Date Comments Previsit 12/27/[address] Plummer Heart Problem 12/27/2013 F/u per [place] Encounter Details Date Type Department Care Team Description 12/27/2013 PRE VISIT Hyacinth Cope Previsit (OV with [facility] Toby Craig 01-06-14); [facility] [address] Problem (F/u per [address] [place]) [address] [place] [address] [place], [place] [phone] (Wo rk) [address] [phone] Social History Tobacco Use Types Packs/Day Years Used Date Never Smoker Alcohol Use Standard Drinks/Week Comments Yes 0 (1 standard drink = 0.6 oz pure alcoho l) occasionally Sex Assigned at Date Recorded Male 03/12/2021 12:11 PM CDT documented as of this encounter Miscellaneous Notes Telephone Encounter - Carly Kiran - 12/27/2013 4:20 PM CDT Pt saw Dr Ovalles 10-05-13 documented in this encounter Plan of Treatment Upcoming Encounters Date Type Specialty Care Team Description 05/15/2022 Hospital Encounter Surgery Singh Torres MD [facility] [address] [place] [address] (Wo rk) 05/15/2022 Surgery Surgery Neo Torres MD BLEPHAROPLASTY BILATERAL [facility] PTOSIS REPAIR BILATERAL [address] [place] [address] (Wo rk) 06/25/2022 Ancillary Procedure Cardiology Kirk Silver MD [address] [place] [phone] (Wo rk) Scheduled Procedures Name Priority Associated [...] on filedocumented in this encounter Care Teams Legal Activity Adjudicator Relationship Specialty Start Date End Date Anatoliy Jackson MD PCP - General 05/14/12 documented as of this encounter
--- OUTSIDE RECORDS SUMMARY | 2022-05-02 12:41 | XMS_ITS | Encounter Summary ---
:1950 Author Organization [place] Address [address] [place] [address] Care Team Providers Name Role Phone Anatoliy Jackson MD Primary Care Provider Heath More MD Unavailable Reason for Visit Reason Onset Date Comments Medication Question 06/16/2014 Encounter Details Date Type Department Care Team Description 06/16/2014 Telephone [facility] Heart Ariella Rivas R N Medication Question Clinic [id number] [place] [address] Social History Tobacco Use Types Packs/Day Years Used Date Never Smoker Alcohol Use Standard Drinks/Week Comments Yes 0 (1 standard drink = 0.6 oz pure alcoho l) occasionally Sex Assigned at Date Recorded Male 03/12/2021 12:11 PM CDT documented as of this encounter Miscellaneous Notes Telephone Encounter - Ariella Rivas, RN - 06/26/2014 11:12 AM CST 1112 Spoke with pt to review that Dr Plummer has ordered a change from Metoprolol to Coreg (Carvedilol) 12.5 mg twice daily. She felt that Bystolic may still be too expensive. New Rx escripted to pt's pharmacy along with note that the new Rx replaces the Metoprolol Rx and that pt wants to pick it up 07/26/14. LGPatoN RAFT CHARTER DISPATCHER Telephone Encounter - Hyacinth Plummer DO - 06/26/2014 10:44 AM AIRCRAFT CHARTER DISPATCHER Coreg, bystolic may be expensive. Would recommend 12.5 mg BID RAFT CHARTER DISPATCHER Telephone Encounter - Ariella Rivas RN - 06/16/2014 1:13 PM CST 1313 Pt left message that he saw his [facility] Consultant and reviewed the question about changing beta hong from Metoprolol to another med because of elevated blood sugars. Pt states that mine laborer told pt it would be OK to change Metoprolol to Coreg or Bystolic but he preferred that Dr Plummer order the change in medication. Requested the most recent endocrinology note to verify this information(they may need signed ETHAN from pt - they will contact pt if this is the case). Spoke with pt and verified that he is still taking Metoprolol Succinate 50 mg twice daily. He states that his blood sugarsare still elevated. Will send message to Dr Plummer to ask which med and dose she wants pt to take instead of Metoprolol. Pt has enough Metoprolol to last until the end of July. LGavesCasandra RAFT CHARTER DISPATCHER documented in this encounter Plan of Treatment Upcoming Encounters Date Type Specialty Care Team Description 05/15/2022 Hospital Encounter Surgery Singh Torres MD [facility] [address] [place] [id number] (Wo rk) 05/15/2022 Surgery Surgery Neo Torres MD BLEPHAROPLASTY BILATERAL [place] [facility] PTOSIS REPAIR BILATERAL [address] [place] [phone] (Wo rk) 06/25/2022 Ancillary Procedure Cardiology Kirk Silver MD [address] [place] [address] (Wo rk) Scheduled Procedures Name Priority Associated [...] ptosis documented in this encounter Care Teams Mine Laborer Relationship Specialty Start Date End Date Anatoliy Jackson MD PCP - General 05/14/12 Heath More PCP - Internal Medicine INTERNAL MEDICINE - 01/06/14 MD Andreas ENDOCRINOLOGY, [facility] [address] [place] [phone] documented as of this encounter
--- OUTSIDE RECORDS SUMMARY | 2022-05-02 12:41 | XMS_ITS | Encounter Summary ---
:1950 Author Organization [place] Address [address] [facility] [place] [address] Care Team Providers Name Role Phone Anatoliy Jackson MD Primary Care Provider Heath More MD Unavailable Encounter Details Date Type Department Care Team Description 01/11/2014 Documentation Only [facility] Heart Brenda Concepcion RN [address] [facility] [address] [place] [address] Social History Tobacco Use Types Packs/Day Years Used Date Never Smoker Alcohol Use Standard Drinks/Week Comments Yes 0 (1 standard drink = 0.6 oz pure alcoho l) occasionally Sex Assigned at Date Recorded Male 03/12/2021 12:11 PM CDT documented as of this encounter Progress Notes Brenda Concepcion, LETICIA - 01/11/2014 3:17 PM CDT Received msg from [facility] office that was requesting pt's most recent lipid results from D. Results received and updated in [facility]. Will message to let her know. Chandana RN documented in this encounter Plan of Treatment Upcoming Encounters Date Type Specialty Care Team Description 05/15/2022 Hospital Encounter Surgery Singh Torres MD [facility] [address] [place] [phone] (Wo rk) 05/15/2022 Surgery Surgery Neo Torres MD BLEPHAROPLASTY BILATERAL [place] [facility] PTOSIS REPAIR BILATERAL [address] [place] [id number] (Wo rk) 06/25/2022 Ancillary Procedure Cardiology Kirk Silver MD [address] [place] [id number] (Wo rk) Scheduled Procedures Name Priority Associated [...] Name Priority Date/Time Associated Diagnosis Comme nts TSH WITH FREE T4 Routine 10/12/2013 Results for this REFLEX procedure are i n the results section . LIPID PROFILE Routine 10/12/2013 Results for th is procedure are i n the results section . BASIC METABOLIC PANEL Routine 10/12/2013 Result s for this procedure are i n the results section . documented in this encounter Results TSH with free T4 reflex (10/12/2013) P athologist Signature TSH 2.73 mcU/mL [facility] Specimen (Source) Anatomical Location Collection Method / Collectio n Time Received Time / Laterality Volume Blood specimen 10/12/2013 (specimen) Patient Reported LAB - BLOOD ORDERABLES Performing Organization Address City/State/ZIP Code Phon e Number [facility] (ABNORMAL) Basic metabolic panel (10/12/2013) P athologist Signature Sodium 138 mmol/L [facility] Potassium 4.5 mmol/L [facility] Chloride mmol/L [facility] CO2, TOTAL mmol/L [facility] Anion Gap mmol/L [facility] Glucose 189 (A) 60 - 99 [facility] mg/dL Urea Nitrogen 37 (H) mg/dL [facility] Creatinine 1.22 mg/dL [facility] Calcium mg/dL [facility] Specimen (Source) Anatomical Location Collection Method / Collectio n Time Received Time / Laterality Volume Blood specimen 10/12/2013 (specimen) Patient Reported LAB - BLOOD ORDERABLES Performing Organization Address City/State/ZIP Code Phon e Number [facility] (ABNORMAL) Lipid Profile (10/12/2013) [facility] gist Method Time Signature Cholesterol 154 115 - 199 [facility] mg/dL Triglycerides 287 (H) mg/dL [facility] HDL Cholesterol 35 (L) mg/dL [facility] LDL Cholesterol 62 mg/dL [facility] Calculated VLDL-Cholesterol ng/dL [facility] Cholesterol/HDL 4.4 [facility] Ratio Specimen (Source) Anatomical Location Collection Method / Collectio n Time Received Time / Laterality Volume Blood specimen 10/12/2013 (specimen) Patient Reported LAB - BLOOD ORDERABLES Performing Organization Address City/State/ZIP Code Phon e Number [facility] documented in this encounter Visit Diagnoses Not on filedocumented in this encounter Care Teams Boat Carpenter Mechanic Relationship Specialty Start Date End Date Anatoliy Jackson MD PCP - General 05/14/12 Heath More PCP - Internal Medicine INTERNAL MEDICINE - 01/06/14 MD Andreas ENDOCRINOLOGY, [facility] [address] [facility] [address] [place] [address] documented as of this encounter
--- OUTSIDE RECORDS SUMMARY | 2022-05-02 12:41 | XMS_ITS | Encounter Summary ---
:1950 Author Organization [place] Address [address] [facility] [place] [address] Care Team Providers Name Role Phone Anatoliy Jackson MD Primary Care Provider Heath More MD Unavailable Reason for Visit Reason Comments Shortness of Breath - Closed Specialty Diagnoses / Procedures Referred By Contact Refer red To Contact Diagnoses Other and unspecified hyperlipidemia CAD (coronary artery disease) Shey Feliz APRN DIESEL TECHNOLOGY INSTRUCTOR [address] [place] [address] Referral ID Status Reason Start Date Expiration Date Visits Requ ested Visits Authorized [id number] Closed 02/04/2015 08/03/2015 1 1 Encounter Details Date Type Department Care Team Description 02/23/2015 Office Visit [facility] Shanell Feliz, CALLIE DIESEL TECHNOLOGY INSTRUCTOR [address] [place] [address] HYPERLIPIDEMIA NEC/NOS; [facility] Gabbi Plummer DO [address] [place] [address] CAD (coronary artery disease) [facility] [place] [phone] Social History Tobacco Use Types Packs/Day Years Used Date Never Smoker Alcohol Use Standard Drinks/Week Comments Yes 0 (1 standard drink = 0.6 oz pure alcoho l) occasionally Sex Assigned at Date Recorded Male 03/12/2021 12:11 PM CDT documented as of this encounter Last Filed Vital Signs Vital Sign Reading Time Taken Comments Blood Pressure 115/59 02/23/2015 9:53 AM CDT Pulse 62 02/23/2015 9:53 AM CDT Temperature - - Respiratory Rate - - Oxygen Saturation - - Inhaled Oxygen Concentration - - Weight 99 kg (218 lb 4.8 oz) 02/23/2015 9:53 AM CDT Height 180.3 cm (5' 11) 02/23/2015 9:53 AM CDT Body Mass Index 30.45 02/23/2015 9:53 AM CDT documented in this encounter Progress Gabbi Gonzalez, DO - 02/23/2015 10:19 AM CDT HPI and Plan: See dictation No orders of the defined types were placed in this encounter. Orders Placed This Encounter Medications ??? simvastatin (ZOCOR) 40 MG tablet Sig: Take 40 mg by mouth At Bedtime ??? fluticasone (FLONASE) 50 MCG/ACT nasal spray Sig: [place] 2 sprays into both nostrils daily Medications Discontinued During This Encounter Medication Reason ??? atorvastatin (LIPITOR) 40 MG tablet Alternate therapy Encounter Diagnoses Name Primary? HYPERLIPIDEMIA NEC/NOS ??? CAD (coronary artery disease) CURRENT MEDICATIONS: Current Outpatient Prescriptions Medication Sig Dispense Refill ??? simvastatin (ZOCOR) 40 MG tablet Take 40 mg by mouth At Bedtime ??? fluticasone (FLONASE) 50 MCG/ACT nasal spray [place] 2 sprays into both nostrils daily ??? [...] Yes 2-3 cups daily ??? Weight Concern Yes weight loss ??? Special Diet Yes low carb ??? Exercise No yardwork Social History Narrative Review of Systems: Skin: Positive for bruising Eyes: Positive for glasses ENT: Positive for postnasal drainage Respiratory: Positive for dyspnea on exertion Cardiovascular: Positive for;lightheadedness;fatigue Gastroenterology: Negative Genitourinary: Positive for nocturia High PSA Musculoskeletal: Positive for arthritis right hip, finger joints Neurologic: Negative Psychiatric: Negative Heme/Lymph/Imm: Positive for allergies Endocrine: Positive for diabetes Physical Exam: Vitals: BP 115/59 mmHg Pulse 62 Ht 1.803 m (5' 11) Wt 99.02 kg (218 lb 4.8 oz) BMI 30.46 kg/m2 Constitutional: cooperative;in no acute distress Skin: warm and dry to the touch Head: normocephalic Eyes: pupils equal and round;sclera white ENT: not assessed this visit Neck: JVP normal Chest: clear to auscultation;normal symmetry Cardiac: regular rhythm;no murmurs, gallops or rubs detected Abdomen: abdomen soft Vascular: pulses full and equal, no bruits auscultated 2+ 2+ right radial cather insertion site c/d/i, no bleeding, no echymossis, good distal pulses and normal range of motion Extremities and Back: no edema trace ankle edema Neurological: affect appropriate, oriented to time, person and place;no gross motor deficits CC Shey Feliz APRN DIESEL TECHNOLOGY INSTRUCTOR [address] [address] DADT ElianGabbi, - 02/23/2015 10:19 AM CDT REFERRING PHYSICIAN: Anatoliy Jackson MD. HISTORY OF PRESENT ILLNESS: Mr. Lind is a pleasant 64-year-old gentleman with a history of coronary artery disease. He had some symptoms of dyspnea on exertion, which led to a stress test which showed some abnormalities in his inferior inferolateral wall. He underwent subsequent coronary angiogram showing that he had progression of his coronary disease and was found to have significant 3-vessel disease with stenosis of the distal circumflex in the range of 70%-80%, the second obtuse marginal is 70%, right coronary artery in the proximal PDA 70%-80%. Because he had planned on traveling to [place] in the very near future, it was decided to treat him medically. He was placed on amlodipine 5 mg and Plavix 75 mg. His Pletal was stopped. He did end up going to [place] and did some hiking there, although he states he avoided the major hike that they had planned. He did not have any difficulty with chest pains or shortness of breath since his return. He is also feeling better in regards to his breathing issues and has not had any chest pains. PHYSICAL EXAMINATION: Today, his blood pressure is 115/59, pulse is 62, weight 218, body mass index of 30. Physical exam findings are unremarkable. SUMMARY: Mr. Lind is a very pleasant 64-year-old male with a history of progression of coronary disease involving 3 vessels. He was having symptoms of shortness of breath and dyspnea on exertion that have improved with the addition of amlodipine and Plavix. We did discuss options for management at this time which would include pursuing percutaneous coronary intervention to these arteries versus continued medical management. There is a slight wrench in this, however, as he is having issues with his prostate apparently with elevated PSA numbers, it is unclear whether this is from a simple benign BPH versus prostate cancer and he is undergoing further evaluation for this. I would like to get in contact with his urologist to discuss this and the timing of any coronary intervention. He will very likely need coronary intervention within the next year or two, given that he has optimal control of hisrisk factors, but evidence of progression of coronary disease. For now, he seems stable from a cardiac perspective and will continue his medical management and I will be in contact with his urologist to discuss the management of both his heart as well as in timing with his prostate issues. Please feelfree to contact me with any questions you have in regards to his care. cc: Anatoliy Jackson MD [address] [address] Peter Gipson MD [facility] Urology [address] [place] [address] GABBI PLUMMER DO MT: LR Name: NIKITA LIND MRN: [id number] Account: [id number] : 1950 Service Date: 02/23/2015 Document: [id number] documented in this encounter Plan of Treatment Upcoming Encounters Date Type Specialty Care Team Description 05/15/2022 Hospital Encounter Surgery Singh Torres MD [facility] [address] [place] [address] (Wo rk) 05/15/2022 Surgery Surgery Neo Torres MD BLEPHAROPLASTY BILATERAL [place] [facility] PTOSIS REPAIR BILATERAL [address] [place] [address] (Wo rk) 06/25/2022 Ancillary Procedure Cardiology Kirk Silver MD [address] [place] [id number] (Wo rk) Scheduled Procedures Name Priority Associated [...] Diagnosis HYPERLIPIDEMIA NEC/NOS Other and unspecified hyperlipidemia CAD (coronary artery disease) Coronary atherosclerosis of unspecified type of vessel, [place] or graft 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
--- OUTSIDE RECORDS SUMMARY | 2022-05-02 12:41 | XMS_ITS | Encounter Summary ---
:1950 Author Organization [place] Address [address] [place] [address] Care Team Providers Name Role Phone Anatoliy Jackson MD Primary Care Provider Heath More MD Unavailable Encounter Details Date Type Department Care Team Description 06/22/2014 [facility], Provider Unspec ified essential [facility] [place] Not In hypertension (Primary [address] [facility] Dx) [address] [place] [address] Social History Tobacco Use Types Packs/Day [...] [address] [place] [id number] (Wo rk) 05/15/2022 Surgery Surgery Neo Torres MD BLEPHAROPLASTY BILATERAL [place] [facility] PTOSIS REPAIR BILATERAL [address] [place] [id number] (Wo rk) 06/25/2022 Ancillary Procedure Cardiology Kirk Silver MD [address] [place] [address] (Wo rk) Scheduled Procedures Name Priority Associated [...] Name Priority Date/Time Associated Diagnosis Comme nts HEMOGLOBIN A1C Routine 06/07/2014 Results for t his procedure are i n the results section . BASIC METABOLIC PANEL Routine 06/07/2014 Result s for this procedure are i n the results section . documented in this encounter Results (ABNORMAL) Hemoglobin A1c (06/07/2014) athologist Signature Hemoglobin A1C 9.7 (A) 4.3 - 6.0 [facility] Specimen (Source) Anatomical Location Collection Method / Collectio n Time Received Time / Laterality Volume Blood specimen 06/07/2014 (specimen) Patient Reported LAB - BLOOD ORDERABLES Performing Organization Address City/State/ZIP Code Phon e Number [facility] [address] [place], [place] [address] [facility] [address] [place], [place] [address] (ABNORMAL) Basic metabolic panel (06/07/2014) athologist Signature Sodium 137 135 - 146 [facility] mmol/L [facility] Potassium 5.0 3.5 - 5.3 [facility] mmol/L [facility] Chloride 103 98 - 110 [facility] mmol/L [facility] CO2, TOTAL 26 19 - 30 [facility] mmol/L [facility] Anion Gap mmol/L [facility] Glucose 289 (A) 60 - 99 [facility] mg/dL [facility] Urea Nitrogen 39 7 - 25 [facility] mg/dL [facility] Creatinine 1.41 0.70 - [facility] 1.25 mg/dL [facility] Calcium 9.6 8.6 - 10.3 [facility] mg/dL [facility] GFR 52 ml/min/1.7 [facility] GFR Estimate If 61 ml/min/1.7 [facility] Black 3m2 [facility] Specimen (Source) Anatomical Location Collection Method / Collectio n Time Received Time / Laterality Volume Blood specimen 06/07/2014 (specimen) Patient Reported LAB - BLOOD ORDERABLES Performing Organization Address City/State/ZIP Code Phon e Number [facility] [address] [place], [place] [address] [facility] [address] [place], [place] [address] documented in this encounter Visit Diagnoses Diagnosis Unspecified essential hypertension - [place] guy 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
--- OUTSIDE RECORDS SUMMARY | 2022-05-02 12:41 | XMS_ITS | Encounter Summary ---
:1950 Author Organization [facility] Address [address] [facility] [place] [address] Care Team Providers Name Role Phone Anatoliy Jackson MD Primary Care Provider Reason for Visit Reason Comments RECHECK F/U and discuss ultasound re sults Encounter Details Date Type Department Care Team Description 10/05/2013 Office Visit [facility] Raheem Ovalles Fatemeh pheral vascular disease, unspecified (H) (Primary Dx); [facility] Santos Kaye MD CAD (coronary artery disease) [address] [place] [address] [address] [facility] [phone] [address] [place] [address] (Wo rk) Social History Tobacco Use Types Packs/Day Years Used Date Never Smoker Alcohol Use Standard Drinks/Week Comments Yes 0 (1 standard drink = 0.6 oz pure alcoho l) occasionally Sex Assigned at Date Recorded Male 03/12/2021 12:11 PM CDT documented as of this encounter Last Filed Vital Signs Vital Sign Reading Time Taken Comments Blood Pressure 147/60 10/05/2013 10:40 AM DYE TANK TENDER right ar m Pulse 54 10/05/2013 10:39 AM DYE TANK TENDER Temperature - - Respiratory Rate - - Oxygen Saturation - - Inhaled Oxygen Concentration - - Weight 99.3 kg (219 lb) 10/05/2013 10:39 AM DYE TANK TENDER Height - - Body Mass Index 30.54 07/13/2013 6:55 AM DYE TANK TENDER documented in this encounter Progress Notes Raheem Ovalles MD - 10/05/2013 11:51 AM CST October 05, 2013 Anatoliy Jackson MD [facility] [id number] [place] [id number] Jackson: Mr. Nikita Lind, a 62-year-old gentleman, was evaluated for peripheral arterial disease and coronary artery disease in the . Mr. Lind has experienced intermittent claudication affecting both lower extremities. Over the past year, he has been taking cilostazol and participating in the outpatient nurse- supervised walking program. His intermittent claudication has improved on medical therapy. He is able to walk prolonged distances without feeling limited by claudication or developing undue dyspnea or fatigue. He has not developed any ulcerations affecting his lower extremities, or rest pain. On his current medical therapy, he is not experiencing any exertional angina pectoris or dyspnea. Coronary angiography in 07/2013 did demonstrate diffuse atherosclerotic coronary artery disease with mild to moderate stenosis. PHYSICAL EXAMINATION: GENERAL: On exam today, he presents as an alert, active gentleman. He does appear comfortable at rest and while up walking in the office. VITAL SIGNS: The blood pressure is 147/60, the pulse rate 54, and the respiratory rate is 16. He weighs 219 pounds. LUNGS: Breath sounds are normal. No pulmonary rales, wheezes or rhonchi are heard. The inspiratory effort at rest is unlabored. CHEST WALL: No chest wall tenderness is present. CARDIOVASCULAR: The cardiac impulse is felt in the midclavicular line. The first and second heart sounds are normal at the apex. No murmurs, rubs or gallops are heard. The rhythm is regular and the rate is normal. The carotid upstrokes are normal. The venous column in his neck does not appear distended. No carotid artery bruits are heard. The brachial, radial, femoral, and posterior tibial pulses arepalpable. No abdominal bruit is heard. MENTAL STATUS: He does appear alert and oriented. He displays normal judgment and insight. His rest and exercise ankle brachial indices were reviewed. The resting ankle brachial indices are normal. A decrease in the systolic pressure at the ankle was observed with exercise in both lower extremities. His renal artery ultrasound exam showed normal flow velocities in both renal arteries without signs of significant narrowing. SUMMARY: Mr. Lind is evaluated for the following cardiovascular conditions: 1.Peripheral arterial disease. 2.Intermittent claudication. 3.Coronary artery disease. 4.Hypertension. 5.Hyperlipidemia. His intermittent claudication has responded well to medical therapy and to participation in the walking program. He has not developed any signs of critical limb ischemia. He is not experiencing intermittent claudication which limits his activities. As a result, I would recommend continued medical management. I did review with him the importance of continuing a walking program, stopping temporarily torelieve his claudication if necessary. I would recommend continuing his current cardiovascular medications which include cilostazol, clonidine, lisinopril, hydrochlorothiazide, simvastatin, and metoprolol. In view of his diabetes mellitus, he may benefit from a change in his beta hong therapy from metoprolol to carvedilol. He is planning to discuss this recommendation with his behavioral services tech. [facility] reassess his peripheral arterial disease. Mr. Lind will also be seeing Dr. Plummer in followup at [facility] for management of his coronary artery disease. I have appreciated the opportunity to participate in the care of your patient, Mr. Lind. Sincerely, RAHEEM OVALLES MD MT: #[id number] Name: NIKITA LIND Account: [id number] : 1950 Visit Date: 10/05/2013 Document: [id number] cc: Anatoliy Jackson MD Raheem Ovalles MD - 10/05/2013 11:38 AM CST CARDIOVASCULAR CONSULTATION [facility] TEVIN OVALLES M.D., FACC, ABVM, RPVI, RVT Nikita Lind Date of : 1950 Age: [age] year old Date of Consult: 10/05/2013 Cardiovascular Conditions: Peripheral Artery Disease Intermittent Claudication Coronary Artery Disease Hypertension Hyperlipidemia Cardiovascular Assessment: His intermittent claudication has improved with cilostazol and a walking program Stable cardiovascular status No angina, heart failure, or symptomatic arrhythmia Cardiovascular Recommendations: Continue the current cardiovascular medical therapy Walking program reviewed Primary Care Physician: Anatoliy Shook [phone] Requesting Physician: Dr. Jackson Chief Complaint: Intermittent claudication History is obtained from the patient History of Present Illness: Nikita Lind is a 62 year old male who presented with intermittent claudication. Past Medical History: Past Medical History Diagnosis Date ??? Polyneuropathy [...] disease,peripheral vascular dx ??? Cancer 1980 Melanoma Past Surgical History: Past Surgical History Procedure Date ? ? Head & neck surgery wisdom teeth extractions, subacious cyst removed Home Medications: Prior to Admission medications Medication Sig Last Dose Taking? Auth Provider CILOSTAZOL PO Take 50 mg by mouth 2 times daily 07/13/2013 at 0500 Yes Reported, Patient CLONIDINE HCL PO Take 0.1 mg by mouth 2 times daily 07/13/2013 at 0500 Yes Reported, Patient GABAPENTIN PO Take 300 mg by mouth At Bedtime 07/12/2013 at 2230 Yes Reported, Patient lisinopril-hydrochlorothiazide (PRINZIDE,ZESTORETIC) 20-12.5 MG per tablet Take 1 tablet by mouth 2 times daily 07/12/2013 at 0700 Yes Reported, Patient SIMVASTATIN PO Take 40 mg by mouth daily 07/13/2013 at 0500 Yes Reported, Patient TAMSULOSIN HCL PO Take 1 mg by mouth daily 07/12/2013 at 2230 Yes Reported, Patient METOPROLOL SUCCINATE ER PO Take 50 mg by mouth 2 times daily 07/13/2013 at 0500 Yes Reported, Patient ONE TOUCH ULTRA TEST STRP as directed 07/13/2013 at 0500 Yes Roberto Linder MD INSULIN LISPRO (HUMAN) 100 UNIT/ML SC SOLN As directed 07/12/2013 at 1800 Yes Roberto Linder MD SYRINGE B-D MICRO FINE 1/2 CC SYRINGES as directed 07/12/2013 at Unknown Yes Roberto Linder MD LANTUS 100 UNIT/ML SC SOLN as directed 07/12/2013 at 2230 Yes Roberto Linder MD Current Medications: Allergies: Allergies Allergen Reactions ??? No Known Drug Allergies ??? Epinephrine Palpitations Social History: Nikita Lind reports that he has never smoked. He does not have any smokeless tobacco history on file. He reports that he drinks alcohol. Family History: Family History Problem Relation Age of Onset ??? Diabetes Maternal Grandmother ??? Hypertension Mother ??? Hypertension Maternal Grandmother ??? Hypertension Maternal Grandfather Review of Systems: Constitutional: No fever, chills or sweats. No weight gain/loss. HEENT No visual disturbance, ear ache, epistaxis, sore throat. Cardiovascular No chest pain or palpitations Respiratory No cough, hemoptysis, shortness of breath GI No nausea, vomiting, hematemesis, melena, or hematochezia Genitourinary No urinary frequency, dysuria, or hematuria Musculoskeletal Intermittent claudicatin Skin No rashes Neurologic No focal deficits Mental Status Normal memory Hematologic No anemia Other: DM Physical Exam: Blood pressure 147/60, pulse 54, weight 219 lb (99.338 kg). 219 lbs 0 oz Constitutional: Comfortable at rest and while up walking HEENT No xanthelasma; sclera white; normal mucosa; no neck masses; thyroid gland not enlarged. Cardiovascular Normal S1 and S2. No murmurs, rub, or gallop. PMI in 5th ICS. Rhythm regular and rate normal. Normal Carotid upstroke. No Carotid Pulses. Normal brachial, radial, ulnar, femoral, dorsalis pedis, and posterior tibial pulses. Respiratory Normal breath sounds. No rales, wheezing, or rhonchi. Normal respiratory effort Abdomen Scaphoid, soft, non-tender. No distension. Normal abdominal aorta pulsation and size. No bruit. Genitourinary Normal genitalia Musculoskeletal No joint swelling or tenderness. No edema. Skin No rashes. No ulcerations Neurologic No focal deficits. Normal gait Mental Status Alert and oriented. Normal judgement and insight Other: Cardiovascular Results: All new lab and imaging data was reviewed. Last Basic Metabolic Panel: NA 136 07/13/2013 POTASSIUM 4.6 07/13/2013 CHLORIDE 103 07/13/2013 RICHIE 9.1 07/13/2013 CO2 28 07/13/2013 BUN 43 07/13/2013 CR 1.30 07/13/2013 GLC 349 07/13/2013 No results found for this basename: tropi, troponin, trop, tropr, troponinies, tropn Recent Labs Lab Test 07/13/13 0725 CHOL 167 HDL 35* LDL 86 TRIG 231* CHOLHDLRATIO 4.8 ECG: ECHOCARDIOGRAM: Stress Test Results: ANGIOGRAPHY AND ENDOVASCULAR INTERVENTION: Reviewed. Diffuse CAD with moderate narrowing. VASCULAR ULTRASOUND AND PHYSIOLOGIC TESTING: Rest Exercise RY reviewed. Signs of mild PAD with exercise Renal artery US reviewed Normal flow velocities. CARDIOVASCULAR FINDINGS: PATIENT INSTRUCTIONS: Medications reviewed. Results of RY and Renal US discussed Walking program reviewed. documented in this encounter Nursing Notes 10/05/2013 10:15 AM CST >> CARLY OTERO [facility] Oct 05, 2013 10:42 AM Patient presents with: RECHECK - F/U and discuss ultasound results Initial BP 147/60 Pulse 54 Wt 219 lb (99.338 kg) Estimated Body mass index is 30.56 kg/(m^2) as calculated from the following: Height as of 07/13/13: 5' 11(1.803 m). Weight as of this encounter: 219 lb(99.338 kg). BP completed using cuff size: large Face to face nursing time: 10 minutes. Carly Otero MA documented in this encounter Plan of Treatment Upcoming Encounters Date Type Specialty Care Team Description 05/15/2022 Hospital Encounter Surgery Singh Torres MD [facility] [address] [place] [id number] (Wo rk) 05/15/2022 Surgery Surgery Neo Torres MD BLEPHAROPLASTY BILATERAL [facility] PTOSIS REPAIR BILATERAL [address] [place] [id number] (Wo rk) 06/25/2022 Ancillary Procedure Cardiology Kirk Silver MD [address] [place] [address] (Wo rk) Scheduled Procedures Name Priority Associated Diagnoses Date/Time REPAIR, PTOSIS, BILATERAL, Dermatochalas is 05/15/2022 7:30 AM CDT WITH BILATERAL BLEPHAROPLASTY 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 REPAIR, ECTROPION, EYE, Dermatochalasis 05/15/2022 7:30 AM CDT BILATERAL 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 documented as of this encounter Visit Diagnoses Diagnosis Peripheral vascular disease, unspecified (H) - Primary Peripheral vascular disease, unspecified CAD (coronary artery disease) Coronary atherosclerosis of unspecified type of vessel, [place] or graft 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
--- OUTSIDE RECORDS SUMMARY | 2022-05-02 12:42 | XMS_ITS | Encounter Summary ---
:1950 Author Organization [place] Address [address] [facility] [place] [address] Care Team Providers Name Role Phone Eliza Patten MD Primary Care Provider Heath More MD Unavailable Peter Gipson MD Unavailable Peter Aguiar MD Unavailable Peter Mcmullen MD Unavailable Fidencio Solis MD Unavailable Hallie Maldonado APRN AUTOMATIC SERGING MACHINE OPERATOR Unavailable [phone] Giuliana Gomez APRN AUTOMATIC SERGING MACHINE OPERATOR Unavailable Fidencio Solis MD Unavailable Giuliana Gomez APRN AUTOMATIC SERGING MACHINE OPERATOR Unavailable [phone] Giuliana Gomez APRN AUTOMATIC SERGING MACHINE OPERATOR Unavailable [phone] Fidencio Solis MD Unavailable Encounter Details Date Type Department Care Team Description 06/20/2013 Office Visit-[facility] [place], [facility] Anu Craig DO [address] [place] [address] [place] [address] [phone] Social History Tobacco Use Types Packs/Day Years Used Date Never Smoker Alcohol Use Standard Drinks/Week Comments Yes 0 (1 standard drink = 0.6 oz pure alcoho l) occasionally Sex Assigned at Date Recorded Male 03/12/2021 12:11 PM CDT documented as of this encounter Progress Notes Hyacinth Plummer DO - 06/23/2013 2:15 PM CST Progress Note Created by: Brendan Plummer D.O. DATE: 06/20/2013 LELO NIKITA DATE OF : 1950 AGE: [age] years old Referring Physician: ELIZA PATTEN Referring Clinic: [facility] CURRENT DIAGNOSES 1. Diabetes Mellitus-Insulin Dependent, 250.00 2. Hyperlipidemia-mixed disorder, 272.4 3. - Shortness of Breath, 786.05 4. HYPERTENSIVE HEART DISEASE UNSPECIFIED, 402.9 5. BENIGN ESSENTIAL HYPERTENSION, 401.1 6. - Abnormal Function Test unspecified, 794.30 7. CAD, 414.00 8. - Peripheral Vascular Disease, 443.9 ALLERGIES lipitor, Nasal drip Procaine HCl, procaine, Heart racing MEDICATIONS (prior to changes made today) 1. aspirin, buffered 325 mg tablet 1 p.o. daily 2. cilostazol 50 mg tablet 1 dose by mouth twice each day 3. clonidine 0.1 mg Tablet 1 po twice daily 4. gabapentin 300 mg Capsule 1-2 tab daily PRN 5. Humalog 100 unit/mL Solution as directed 6. Lantus 100 unit/mL Solution Take as Directed 7. lisinopril-hydrochlorothiazide 20-12.5 mg Tablet 1 p.o. twice daily 8. metoprolol succinate 50 mg Tablet Sustained Release 24 hr 1 p.o. twice daily 9. nitroglycerin 0.4mg tablet, sublingual 1 Tab Sublingual - May Repeat Every 5 Minutes x2 For Chestpain 10. [id number] mg Tablet 1 p.o. qAM CHIEF COMPLAINTS HISTORY OF PRESENT ILLNESS Mr. Anderson is a pleasant 62-year-old male with a history of insulin dependent diabetes, hypertension, hyperlipidemia, and peripheral arterial disease. He is here for a follow up visit today. I did askhim to undergo a repeat Cardiolite stress test to monitor for progression of disease. He has had evidence of ischemia in the RCA distribution. The area of ischemia appeared to be less than 10% to 15% of the total myocardium. We opted to treat him medically because of a history of renal insufficiency. He initially had symptoms of dyspnea on exertion. However, his symptoms seemed to have resolved. He has been doing quite well over the past year. He has been fairly active [place] the mountains and has not had any difficulty with exercise intolerance, chest pain symptom, or difficulties with hisbreathing. He also has not noted any claudication symptoms. He does taken cilostazol for peripheral arterial disease. His Cardiolite stress test does show evidence of progression of ischemia. In addition to continuing to have an area of reversibility in the inferior and inferolateral wall, there is also a second area in the apex and distal lateral wall suggesting the possibility of at least two vessel disease. His LV function continues to be normal. His EF is around 54%. He did have EKG changes consistent with ischemia as well as some chest discomfort with exercise. On exam today, his blood pressure was 108/54. Pulse was 58. His weight was 216, which is actually down about a pound. He is actually down about 6 pounds from last year. Body mass index was 30. He has had a recent basic metabolic panel showing just mild renal insufficiency with a creatinine of 1.4. GFRwas 56. This was markedly improved from a previous high of 2.2 while he was taking fenofibrate. Electrolytes appear to be normal. He does have mild hypertriglyceridemia that is persistent with triglycerides of 161. HDL was 45. LDL was 72. Liver function tests were normal. On exam, his cardiovascular tones were regular without a murmur, gallop, or rub. Lungs were clear posteriorly. He has no peripheral edema today with diminished extremity pulses on exam. 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, ED, decreased libido, mild nonproliferative retinopathy, hyperlipidemia Past Cardiac Illnesses: claudication Cardiology Procedures-NonInvasive: stress echo Oct 2004, stress echo Jan 2008, myocardial perfusion (Nuc) Jan 2011, echocardiogram May 2012, myocardial perfusion (Nuc) Apr 2012, Vascular Procedures-Noninvasive: RY-Exercise Jan 2011, 08/21 bilateral LE arterial duplex and aortoiliac duplex, 10/19 renal artery US, 08/22: Rest/exercise RY and renal ultrasound Peripheral Vasc Procedure Results: 01/18 ABIs-normal RY RLE, near normal RY LLE (trace decrease in post exercise RY in LLE), 08/21 RY rest: right=1.12, left=1.10, no significant obstructive PAD or aortoiliac disease, 10/19 renal US: less than 60% stenosis on both right and left renal artery, left renal cyst, 08/22: Signficant bilateral PAD., 08/22: No significant renal artery stenosis. Renal cyst noted. PMHx Echo Results: 05/21 no RWMA, RVSP 38 mmHg PMHx Stress Echo Results: 10/12-normal, 01/15-normal, <GT>[address] depression inf and lat leads with exercise Left Ventricular Ejection Fraction: EF normal by stress echo 10/12, EF <GT>70% by stress echo 01/15, EF 50% by Nuclear study 01/18, EF<GT>55% by Echo -May 2012, ( 55-60%), EF 54% by nuclear study Nuclear Results: 01/18 mild inferior ischemia, =compared to prev study may be no significant change in the extent of suspected inferior ischemia,prev study was challenging for interpretation due to bowel artifact,06/22-Small,partially reversible, mid to basal-inferolateral defect consistent with infarct with mild gabbi-infarct ischemia. Second small, apical-lateral defect consistent with mild ischemia. Stress testing induced anginal chest pain. 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 EYES wears eye glasses/contact lenses EARS, NOSE, THROAT, MOUTH denies any hearing loss, epistaxis, hoarseness or difficulty speaking. RESPIRATORY cough, from post nasal drip, snoring CARDIOVASCULAR negative for palpitations, chest pain, orthopnea, PND, peripheral edema, syncope ABDOMINAL denies ulcer disease, hematochezia or melena. MUSCULOSKELETAL arthritis of the wrist(s) hand(s), a lot of joint pain (shoulder, elbow, knee, fingers) NEUROLOGICAL diabetic seizure PSYCHIATRIC denies any history of depression, substance abuse or change in cognitive functions. ENDOCRINE insulin dependent diabetes mellitus HEMATOLOGICAL/IMMUNOLOGIC denies any food allergies, seasonal allergies, bleeding disorders. VASCULAR left calf pain after 1/8 mile, not walking much, cramping to left calf with dedicated walks, hasn't noticed it as much as before- medications have helped with this PHYSICAL EXAMINATION VITAL SIGNS: Blood Pressure: 108/54Sitting, Left arm, large cuff Pulse- 58.00/min. Weight- 216.20 lbs. Height- 71. BMI Measurement: 30 CONSTITUTIONAL cooperative, in no acute distress SKIN warm and dry to touch, no apparent skin lesions, or masses noted. HEAD normocephalic, atraumatic EYES Pupils equal and round, conjunctivae and lids unremarkable, sclera white, no xanthalasma ENT no pallor or cyanosis, dentition good NECK carotid pulses are full and equal bilaterally, no JVD CHEST clear to auscultation CARDIAC S1 normal, S2 normal, no murmurs, gallops or rubs detected ABDOMEN abdomen soft, no bruits, moderately obese PERIPHERAL PULSES pulses below the femoral arteries are diminished, +2 radial pulses EXTREMITIES & BACK no clubbing, cyanosis or edema NEUROLOGICAL no gross motor deficits noted, affect appropriate, oriented to time, person and place. MEDICATIONS UPDATED/STARTED TODAY: IMPRESSIONS/PLAN In summary, Mr. Anderson is a pleasant 62-year-old male with a history of insulin dependent diabetes,hypertension, hyperlipidemia, and peripheral arterial disease. He has a persistent abnormality in the distribution of the right coronary artery as well as a new area in the distal lateral and apex suggesting the possibility of at least two vessel coronary disease. He also had EKG changes and chest tightness on stress testing. At this time, I am recommending a coronary angiogram for further evaluation. Although he is asymptomatic at this time, he has been an insulin dependent diabetic and may not present with typical symptoms. I am concerned about the possibility of three vessel coronary disease or left main disease. I would like to define his anatomy better. I did go over the risks, benefits, and alternatives of this procedure with him. I also provided him with some pamphlets. I have ordered thistest. He would like to go home and discuss this with his . We will plan to schedule this in the near future. He did not need any refills of his medications today. He does have nitroglycerin at home. He is on aspirin at this time. Lastly, he has mentioned that his blood sugars have been poorly controlled recently. I have suggested to him in the past that we change his beta-hong from metoprolol to either Coreg or Bystolic. He would like to further discuss this with Dr. More. Therefore, I have asked him to follow up regarding whether this would be of benefit for him since he does seem to behaving difficulties controlling his blood sugar. Please feel free to contact me with any questions that you may have regarding his care. TODAYS ORDERS 1. (Define) set up angiogram with laxson or arlette only 2. Left Heart Cath abnormal stress test 3. Pre Cath Labs Brendan Plummer D.O. documented in this encounter Plan of Treatment Upcoming Encounters Date Type Specialty Care Team Description 05/15/2022 Hospital Encounter Surgery Singh Torres MD [facility] [address] [place] [address] (Wo rk) 05/15/2022 Surgery Surgery Neo Torres MD BLEPHAROPLASTY BILATERAL [facility] PTOSIS REPAIR BILATERAL [address] [place] [address] (Wo rk) 06/25/2022 Ancillary Procedure Cardiology Kirk Silver MD [address] [place] [address] (Wo rk) Scheduled Procedures Name Priority Associated [...] on filedocumented in this encounter Care Teams Household Chores Relationship Specialty Start Date End Date Eliza Patten PCP - General 05/14/12 Heath More PCP - Internal Medicine INTERNAL MEDICINE - 01/06/14 MD Andreas ENDOCRINOLOGY, DIABETES ENDOCRINE CL[facility]IC & METABOLISM [facility] [address] [place] [phone] Peter Gipson PCP - Urology 04/02/15 MD Jordan [facility] [address] [facility] [address] [place] [address] Peter Aguiar Assigned Heart and 06/01/20 12/15/20 MD Ishan Vascular Provider [address] [place], [place] [id number] Peter Mcmullen Assigned Musculoskeletal 06/01/20 MD Mahendra Provider [address] [place], [place] [id number] Fidencio Solis MD Assigned Heart and 12/16/20 02/21/[address], Vascular Provider [address] [place] [address] Hallie Maldonado, Assigned Heart and 02/22/2105/18 BABY COUNSELOR AUTOMATIC SERGING MACHINE OPERATOR Vascular Provider [address] [place] [address] Giuliana Gomez Assigned Heart and 05/19/2106/15/21 A, BABY COUNSELOR AUTOMATIC SERGING MACHINE OPERATOR Vascular Provider [address] [place], [place] [address] Fidencio Solis MD Assigned Heart and 06/16/21 06/29/[address], Vascular Provider [address] [place] [address] Giuliana Gomez Assigned Heart and 06/30/21 ACALLIE AUTOMATIC SERGING MACHINE OPERATOR Vascular Provider [address] [place], [place] [address] Giuliana Gomez Nurse Practitioner Cardiovascular Disease 2 A, BABY COUNSELOR AUTOMATIC SERGING MACHINE OPERATOR [address] [place] [id number] Fidencio Solis MD MD Cardiovascular Disease 08/21/21 [address] [place] [id number] documented as of this encounter
--- OUTSIDE RECORDS SUMMARY | 2022-05-02 12:42 | XMS_ITS | Encounter Summary ---
:1950 Author Organization [place] Address [address] [facility] [place] [address] Care Team Providers Name Role Phone Anatoliy Jackson MD Primary Care Provider Heath More MD Unavailable Peter Gipson MD Unavailable Encounter Details Date Type Department Care Team Description 06/14/2013 Historic Results [facility] Heart Unknown, [facility] ider Clinic [address] [place] [address] Social History [...] [address] [place] [id number] (Wo rk) 05/15/2022 Surgery Surgery Neo Torres MD BLEPHAROPLASTY BILATERAL [facility] [facility] PTOSIS REPAIR BILATERAL [address] [place] [address] (Wo rk) 06/25/2022 Ancillary Procedure Cardiology Kirk Silver MD [address] [place] [address] (Wo rk) Scheduled Procedures Name Priority Associated [...] Name Priority Date/Time Associated Diagnosis Comme nts NUCLEAR CARDIAC - HIM 06/14/2013 12:00 AM SOLID WASTE FACILITY OPERATOR SCAN - ARCHIVE documented in this encounter Results NUCLEAR CARDIAC - HIM SCAN - ARCHIVE (06/14/2013 12:00 AM SOLID WASTE FACILITY OPERATOR) Specimen (Source) Anatomical Location Collection Method / Collectio n Time Received Time / Laterality Volume 06/14/2013 Narrative This result has an attachment that is no t available. Provider Scan IMG NM ORDERABLES documented in this encounter Visit Diagnoses Not on filedocumented in this encounter Care Teams Senior It Assistant Relationship Specialty Start Date End Date Anatoliy Jackson MD PCP - General 05/14/12 Heath More PCP - Internal Medicine INTERNAL MEDICINE - 01/06/14 MD Andreas ENDOCRINOLOGY, [facility] [address] [place] [phone] Peter Gipson PCP - Urology 04/02/15 MD Jordan [facility] [address] [place] [address] [address] [place], [place] [phone] documented as of this encounter
--- OUTSIDE RECORDS SUMMARY | 2022-05-02 12:42 | XMS_ITS | Encounter Summary ---
:1950 Author Organization [place] Address [address] [facility] [place] [address] Care Team Providers Name Role Phone Anatoliy Jackson MD Primary Care Provider Heath More MD Unavailable Peter Gipson MD Unavailable Encounter Details Date Type Department Care Team Description 09/03/2012 Historic Results [facility] Heart Unknown, [facility] ider Clinic [address] [place] [phone] Social History [...] Team Description 05/15/2022 Hospital Encounter Surgery Singh Trores MD [facility] [address] [place] [phone] (Wo rk) 05/15/2022 Surgery Surgery Neo Torres MD BLEPHAROPLASTY BILATERAL [place] [facility], INTERNAL & [facility] PTOSIS REPAIR BILATERAL [address] [place] [address] (Wo rk) 06/25/2022 Ancillary Procedure Cardiology Kirk Silver MD [address] [place] [address] (Wo rk) Scheduled Procedures Name Priority Associated [...] Comme nts US VASCULAR - HIM SCAN 09/03/2012 12:00 AM TOBACCO CUTTER - ARCHIVE documented in this encounter Results US VASCULAR - HIM SCAN - ARCHIVE (09/03/2012 12:00 AM TOBACCO CUTTER) Specimen (Source) Anatomical Location Collection Method / Collectio n Time Received Time / Laterality Volume 09/03/2012 Narrative This result has an attachment that is no t available. Provider Scan IMG US ORDERABLES documented in this encounter Visit Diagnoses Not on filedocumented in this encounter Care Teams Door Repairman Relationship Specialty Start Date End Date Anatoliy Jackson MD PCP - General 05/14/12 Heath More PCP - Internal Medicine INTERNAL MEDICINE - 01/06/14 MD Andreas ENDOCRINOLOGY, [facility] [address] [place] [phone] Peter Gipson PCP - Urology 04/02/15 MD Jordan [facility] [address] [place] [address] [address] [place], [place] [id number] documented as of this encounter
--- OUTSIDE RECORDS SUMMARY | 2022-05-02 12:42 | XMS_ITS | Encounter Summary ---
:1950 Author Organization [place] Address [address] [facility] [place] [address] Care Team Providers Name Role Phone Anatoliy Jackson MD Primary Care Provider Encounter Details Date Type Department Care Team Description 07/13/2013 Results Only [facility], DO Results [address] [place] [id number] (Wo rk) Social History Tobacco Use Types [...] [address] [place] [id number] (Wo rk) 05/15/2022 Surgery Surgery Neo Torres MD BLEPHAROPLASTY BILATERAL [facility] PTOSIS REPAIR BILATERAL [address] [place] [id number] (Wo rk) 06/25/2022 Ancillary Procedure Cardiology Kirk Silver MD [address] [place] [id number] (Wo rk) Scheduled Procedures Name Priority Associated [...] Name Priority Date/Time Associated Diagnosis Comme nts HEART CATH PRES 07/13/2013 11:23 AM Resul ts for this GRADIANT TELEPHONE RECORDER procedure are i n the results section. documented in this encounter Results Heart Cath Pres gradiant (07/13/2013 11:23 AM TELEPHONE RECORDER) Anatomical Region Laterality Modality Other Specimen (Source) Anatomical Collection Method Collection Time Re ceived Time Location / / Volume Laterality 07/13/2013 11:23 AM TELEPHONE RECORDER Narrative 07/14/2013 8:30 AM TELEPHONE RECORDER NIKITA ANDERSON ? PROCEDURES PERFORMED: 1. ??Left heart catheterization with lef t ventricular angiography. 2. ??Selective coronary angiography. 3. ??FFR of the right PDA vessel. 4. ??FFR of the distal circumflex. 5. ??FFR of the second obtuse marginal. ?? CLINICAL DATA: ??This is a 62-year-old g entleman with a high number of risk factors including diabetes who has been developing some dyspnea on exertion. ??He has a previously abnor mal stress study with some mild inferior ischemia and was treated m edically. ??Recently his symptoms have been worse, and a stress s tudy showed more ischemia, including some apical ischemia, and he i s referred for catheterization. ?? CATHETERIZATION RESULTS: 1. ??Coronary artery disease, moderate 2 -vessel. ??No likely hemodynamically significant and no culpr it lesions. a) Left main coronary artery. ??This is mildly calcified and normal in caliber and appearance and divides loyda lly into the LAD and circumflex. ?? b) Left anterior descending. ??This has moderate proximal calcification but only 20% proximal smoo th mild narrowing. ??There are multiple 20% smooth irregularities in th e mid LAD and mild distal LAD disease. ??The major diagonal branches h ave only mild irregularity. ?? c) Left circumflex. ??This is nondominan t with moderate first, second, third and fourth marginals. ??The circum flex proper has 40-50% proximal narrowing. ??There is a 50% chaim rowing just before the bifurcation into the third and fourth ma rginals. ??The first marginal has mild irregularity. ??The second leif inal has 50-60% proximal narrowing. ?? d) Right coronary artery. ??This is morp hologically dominant and arises and courses normally. ??There is an average-sized PDA and a very small posterolateral system. ??Ther e is only mild right coronary proximal and mid irregularity. ??There i s a heavily calcified 40-50% stenosis just before the crux. ??This ex tends as a 60% stenosis into the proximal PDA. ?? 2. ??Left ventricular ejection fraction is 60-65% or higher without regional wall motion abnormality. ??Left ventricular pressure 126/11 without gradient across the aortic valve . ?? 3. ??Right PDA FFR. ??With adenosine sti mulation, this was 0.84, suggesting it is unlikely to be hemodyna mically significant. ?? 4. ??Distal circumflex FFR. ??This was 0 .87 suggesting it is not hemodynamically significant. ?? 5. ??Circumflex OM2 FFR. ??This was 0.92 , which is not significant. ?? COMMENT: ??This gentleman has findings a s above and needs continued careful risk factor intervention. ??In r eviewing his labs today, his glucose is quite elevated, and he states this has been up considerably lately. ??He is seeking to see his residential property consultant because his insulin doses are not taking care of his diabetes. ??It is possible that this out of control diabet es may be causing some microvascular dysfunction contributing t o his symptoms and findings. ?? I have urged him to follow up with his e ndocrinologist. ??Otherwise, I will continue his current medications an d recommend he add aspirin. ?? PROCEDURE: ??After confirming intact pal mar arch with oximetry and a modified Slava's test, a 6 Nauruan Gardiner sheath was placed in the right radial artery. ??A 5 Nauruan Robinson catheter was advanced into the aortic root and into the ventricle and h emodynamics and left ventriculography performed. ??It was wit hdrawn into the aortic root and selective left and right coronary an giography performed. ??We then proceeded on to FFR. ??An Aeris wire was prepared and advanced just out the tip of the catheter in the proxi mal right coronary and equalization performed. ??It was advance d down into the distal PDA, and sequential adenosine intracoronary b oluses performed ranging from 24-48 mcg with a flat FFR. ??Aeris wire was then withdrawn back into the proximal right and confirmed stable equalization. ??It was then withdrawn into the catheter, and the cat heter was repositioned in the left main. ??Aeris wire, after recheckin g the tip, was advanced down into the circumflex and equalization per formed with the wire in the left main. ??The wire was then advanced into the distal circumflex and FFR performed with further sequential in tracoronary adenosine boluses. ??The guidewire was then withdr awn back into the proximal circumflex and advanced down into the di stal OM2 and FFR repeated with adenosine boluses intracoronary. ?? Aeris wire was then withdrawn back into the left main, confirming stab le equalization. ??The wire was removed. ??The Robinson catheter was re moved over a guidewire. ??The radial sheath was removed and hemostasis obtained with a TR Band and the patient transferred back to the care unit. ?? Total contrast was 127 mL of Isovue 370. ??Fluoroscopy time 7.9 minutes. ??Conscious sedation used momo abdul under my supervision. Procedure Note Peter Aguiar MD - 07/14/2013Fo rmatting of this note might be different from the original. NIKITA ANDERSON PROCEDURES PERFORMED: 1. Left heart catheterization with left ventricular angiography. 2. Selective coronary angiography. 3. FFR of the right PDA vessel. 4. FFR of the distal circumflex. 5. FFR of the second obtuse marginal. CLINICAL DATA: This is a 62-year-old gen tleman with a high number of risk factors including diabetes who has been developing some dyspnea on exertion. He has a previously abnorma l stress study with some mild inferior ischemia and was treated m edically. Recently his symptoms have been worse, and a stress s tudy showed more ischemia, including some apical ischemia, and he i s referred for catheterization. CATHETERIZATION RESULTS: 1. Coronary artery disease, moderate 2-v essel. No likely hemodynamically significant and no culpr it lesions. a) Left main coronary artery. This is mi ldly calcified and normal in caliber and appearance and divides loyda lly into the LAD and circumflex. b) Left anterior descending. This has mo derate proximal calcification but only 20% proximal smoo th mild narrowing. There are multiple 20% smooth irregularities in th e mid LAD and mild distal LAD disease. The major diagonal branches hav e only mild irregularity. c) Left circumflex. This is nondominant with moderate first, second, third and fourth marginals. The circumfl ex proper has 40-50% proximal narrowing. There is a 50% narro wing just before the bifurcation into the third and fourth ma rginals. The first marginal has mild irregularity. The second margin al has 50-60% proximal narrowing. d) Right coronary artery. This is morpho logically dominant and arises and courses normally. There is an average-sized PDA and a very small posterolateral system. There is only mild right coronary proximal and mid irregularity. There is a heavily calcified 40-50% stenosis just before the crux. This exte nds as a 60% stenosis into the proximal PDA. 2. Left ventricular ejection fraction is 60-65% or higher without regional wall motion abnormality. Left v entricular pressure 126/11 without gradient across the aortic valve . 3. Right PDA FFR. With adenosine stimula tion, this was 0.84, suggesting it is unlikely to be hemodyna mically significant. 4. Distal circumflex FFR. This was 0.87 suggesting it is not hemodynamically significant. 5. Circumflex OM2 FFR. This was 0.92, wh ich is not significant. COMMENT: This gentleman has findings as above and needs continued careful risk factor intervention. In rev iewing his labs today, his glucose is quite elevated, and he states this has been up considerably lately. He is seeking to se e his residential property consultant because his insulin doses are not taking care of his diabetes. It is possible that this out of control diabet es may be causing some microvascular dysfunction contributing t o his symptoms and findings. I have urged him to follow up with his e ndocrinologist. Otherwise, I will continue his current medications an d recommend he add aspirin. PROCEDURE: After confirming intact blankenship r arch with oximetry and a modified Slava's test, a 6 Nauruan Gardiner sheath was placed in the right radial artery. A 5 Nauruan Robinson ca theter was advanced into the aortic root and into the ventricle and h emodynamics and left ventriculography performed. It was withd rawn into the aortic root and selective left and right coronary an giography performed. We then proceeded on to FFR. An Aeris wire was p repared and advanced just out the tip of the catheter in the proxi mal right coronary and equalization performed. It was advanced down into the distal PDA, and sequential adenosine intracoronary b oluses performed ranging from 24-48 mcg with a flat FFR. Aeris wire wa s then withdrawn back into the proximal right and confirmed stable equalization. It was then withdrawn into the catheter, and the cat heter was repositioned in the left main. Aeris wire, after rechecking the tip, was advanced down into the circumflex and equalization per formed with the wire in the left main. The wire was then advanced in to the distal circumflex and FFR performed with further sequential in tracoronary adenosine boluses. The guidewire was then withdraw n back into the proximal circumflex and advanced down into the di stal OM2 and FFR repeated with adenosine boluses intracoronary. Ae ris wire was then withdrawn back into the left main, confirming stab le equalization. The wire was removed. The Robinson catheter was keyon shyla over a guidewire. The radial sheath was removed and hemostasis obtained with a TR Band and the patient transferred back to the care unit. Total contrast was 127 mL of Isovue 370. Fluoroscopy time 7.9 minutes. Conscious sedation used through out under my supervision. Hyacinth Plummer DO CV CARDIAC CATH ORDERABLE S documented in this encounter Visit Diagnoses Not on filedocumented in this encounter Care Teams Safety Engineer Pressure Vessels Relationship Specialty Start Date End Date Anatoliy Jackson MD PCP - General 05/14/12 documented as of this encounter
--- OUTSIDE RECORDS SUMMARY | 2022-05-02 12:42 | XMS_ITS | Encounter Summary ---
:1950 Author Organization [place] Address [address] [facility] [place] [address] Care Team Providers Name Role Phone Anatoliy Jackson MD Primary Care Provider Encounter Details Date Type Department Care Team Description 09/28/2013 Hospital Encounter [facility] [place] (peripheral [facility] Raheem Kaye, vascular disease) [address] (H) [address] [facility] [place], [place] [id number] [address] [phone] [address] Social History Tobacco Use Types Packs/Day Years [...] directed 100 0 09/18/2004 1/2 CC SYRINGES CILOSTAZOL POIndications: Take 50 mg by mouth 0 01/03/2015 Intermittent Claudication 2 times daily CLONIDINE HCL PO Take 0.1 mg by [...] daily (PRINZIDE,ZESTORETIC) 20-12.5 MG per tabletIndications: Hypertension METOPROLOL SUCCINATE ER Take 50 mg by mouth 0 06/26/2014 PO 2 times daily SIMVASTATIN PO Take 40 mg by mouth 0 0 01/03/2015 daily TAMSULOSIN HCL PO Take 1 mg by mouth 0 01/03/2015 daily documented as of this encounter Plan of Treatment Upcoming Encounters Date Type Specialty Care Team Description 05/15/2022 Hospital Encounter Surgery Singh Torres MD [facility] [address] [place] [id number] (Wo rk) 05/15/2022 Surgery Surgery Neo Torres MD BLEPHAROPLASTY BILATERAL [facility] PTOSIS REPAIR BILATERAL [address] [place] [address] (Wo rk) 06/25/2022 Ancillary Procedure Cardiology Kirk Silver MD [address] [place] [id number] (Wo rk) Scheduled Procedures Name Priority Associated [...] Priority Date/Time Associated Diagnosis Comme nts US L EXT ART Routine 09/28/2013 9:40 AM PVD (peripheral Result s for this DOPPLER SEG SHEET METAL TECHNICIAN vascular disease) procedure are in PRESSURES W EXER (H) the results BASHIR section. documented in this encounter Results US Low Ext Arterial Dop Seg Pres w Ex (09/28/2013 9:40 AM SHEET METAL TECHNICIAN) Anatomical Region Laterality Modality Lower Extremity Ultrasound Specimen (Source) Anatomical Location Collection Method / Collectio n Time Received Time / Laterality Volume Narrative 09/28/2013 4:47 PM SHEET METAL TECHNICIAN [facility]ASCULAR LABORATORY BILATERAL LOWER EXTREMITY ARTERIAL NONIN VASIVE RY WITH PHYSIOLOGIC TESTING AND EXERCISE PATIENT NAME: NIKITA ANDERSON Date: 09/28/2013 9:40 AM : 1950 ORDERING PROVIDER: Casie DURON PRIMARY CARE PHYSICIAN: RAHEEM OVALLES MD, M.D. INTERPRETING PHYSICIAN: ??Konstantin BAGLEY, RPVI TECHNOLOGIST: FREDDIE BOCANEGRA RVT INDICATION: Intermittent claudication CONCLUSIONS: 1. Normal resting ABIs bilaterally with a mild drop with exercise suggesting mild, non-obstructive periphe ral arterial disease Right lower extremity: The right RY at rest measures 1.1 which is normal. The right RY after treadmill exercise w as 0.82 The right systolic pressure was 146 at p eak exercise and dropped to 130 mmHg. Left lower extremity: The left RY at rest measured 1.2 which is normal. The left RY after treadmill exercise wa s 0.87 The left systolic pressure was 159 mmHg at peak exercise and dropped to 143 mmHg RECOMMENDATIONS: The presence of peripheral arterial dise ase does indicate an increased risk for cardiovascular event for which preventative measures are appropriate. EXAM DESCRIPTION AND FINDINGS: A bilateral noninvasive lower extremity arterial exam was completed to include an RY at rest and post treadmil l exercise, continuous wave Doppler, segmental pressures, and the pu lse volume recording waveforms. The patient performed treadmill exercise 5 minutes at 2 miles per hour at 12% elevation. The patient did not experience symptoms of claudication during the exercise protocol. Doppler waveforms: The Doppler waveforms demonstrated A nor mal triphasic pattern in the arteries of the lower extremities STUDY QUALITY: The study quality was excellent. The [facility] Heart [facility] Dedicated to Excellence in Vascular Care To schedule a Vascular Lab study or cons ultation Call [phone]. OPTION 2. I appreciate the referral to the [facility] rt Vascular Diagnostic Lab RENETTA KRISHNA MD Procedure Note Renetta Krishna MD - 09/28/2013Formatt ing of this note might be different from the original. [facility] ACCREDITED VASCULAR LABORATORY BILATERAL LOWER EXTREMITY ARTERIAL NONIN VASIVE RY WITH PHYSIOLOGIC TESTING AND EXERCISE PATIENT NAME: NIKITA ANDERSON Date: 09/28/2013 9:40 AM : 1950 ORDERING PROVIDER: Casie DURON PRIMARY CARE PHYSICIAN: RAHEEM OVALLES MD, M.D. INTERPRETING PHYSICIAN: RENETTA KRISHNA MD, [facility] TECHNOLOGIST: FREDDIE BOCANEGRA RVT INDICATION: Intermittent claudication CONCLUSIONS: 1. Normal resting ABIs bilaterally with a mild drop with exercise suggesting mild, non-obstructive periphe ral arterial disease Right lower extremity: The right RY at rest measures 1.1 which is normal. The right RY after treadmill exercise w as 0.82 The right systolic pressure was 146 at p eak exercise and dropped to 130 mmHg. Left lower extremity: The left RY at rest measured 1.2 which is normal. The left RY after treadmill exercise wa s 0.87 The left systolic pressure was 159 mmHg at peak exercise and dropped to 143 mmHg RECOMMENDATIONS: The presence of peripheral arterial dise ase does indicate an increased risk for cardiovascular event for which preventative measures are appropriate. EXAM DESCRIPTION AND FINDINGS: A bilateral noninvasive lower extremity arterial exam was completed to include an RY at rest and post treadmil l exercise, continuous wave Doppler, segmental pressures, and the pu lse volume recording waveforms. The patient performed treadmill exercise 5 minutes at 2 miles per hour at 12% elevation. The patient did not experience symptoms of claudication during the exercise protocol. Doppler waveforms: The Doppler waveforms demonstrated A nor mal triphasic pattern in the arteries of the lower extremities STUDY QUALITY: The study quality was excellent. The [facility] Heart [facility] Dedicated to Excellence in Vascular Care To schedule a Vascular Lab study or cons ultation Call [phone]. OPTION 2. 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
--- OUTSIDE RECORDS SUMMARY | 2022-05-02 12:42 | XMS_ITS | Encounter Summary ---
:1950 Author Organization [place] Address [address] [facility] [place] [address] Care Team Providers Name Role Phone Anatoliy Jackson MD Primary Care Provider Encounter Details Date Type Department Care Team Description 09/28/[address] [facility] LEN Ovalles (peripheral [facility] Raheem Kaye, vascular disease) [address] (H) 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 KMAKER APPRENTICE documented in this encounter Plan of Treatment Upcoming Encounters Date Type Specialty Care Team Description 05/15/2022 Hospital Encounter Surgery Singh Torres MD [facility] [address] [place] [id number] (Wo rk) 05/15/2022 Surgery Surgery Neo Torres MD BLEPHAROPLASTY BILATERAL [facility] PTOSIS REPAIR BILATERAL [address] [place] [id number] (Wo rk) 06/25/2022 Ancillary Procedure Cardiology Kirk Silver MD [address] [place] [id number] (Wo rk) Scheduled Procedures Name Priority Associated [...] Priority Date/Time Associated Diagnosis Comme nts US RENAL LIMITED Routine 09/28/2013 9:39 AM PVD (peripheral Re sults for this WITH DOPPLER CLOCKMAKER APPRENTICE vascular disease) procedure are in LIMITED (H) the results section. documented in this encounter Results US Renal Limited w Duplex Limited (09/28/2013 9:39 AM CLOCKMAKER APPRENTICE) Anatomical Region Laterality Modality Abdomen/Pelvis Ultrasound Specimen (Source) Anatomical Location Collection Method / Collectio n Time Received Time / Laterality Volume Narrative 09/28/2013 3:33 PM CLOCKMAKER APPRENTICE [facility] RENAL ARTERY DUPLEX ULTRASOUND Patient: NIKITA ANDERSON Date: 09/28/2013 9:39 AM : 1950 Ordering Provider: RAEHEM OVALLES MD Primary Care Physician: RAHEEM OVALLES MD Interpreting Physician: ??Konstantin BAGLEY, RPVI Technologist: SAHRA FRAZIER, ??RVT INDICATION: Hypertension, 401.1 CONCLUSION: 1. Patent bilateral renal arteries. The flow velocities in the right and left renal arteries are within the n ormal range 2. No significant change since the last study (09/03/2012) INCIDENTAL FINDINGS: ??Simple appearing cyst (1.8 X 1.7 X 1.4 cm) is seen in the left kidney COMPARISON: 09/03/2012 RECOMMENDATIONS: Continued medical therapy for treatment of the patient's hypertension appears appropriate. CORRELATION WITH CLINICAL INDICATION: Renal artery duplex ultrasonography did not demonstrate any significant renal artery stenosis to acc ount for the patient's hypertensive heart disease. EXAM DESCRIPTION AND FINDINGS: A limited renal artery ultrasound was pe rformed using duplex ultrasound imaging with spectral and col or Doppler. Right kidney: The right kidney measures 12.06cm in arely gth. The Doppler waveforms in the right renal artery demonstrated a normal low resistance pattern and flow velociti es within the normal range indicating less than 60% diameter stenos is. Left kidney: The left kidney measures 11.9 cm in russ th. The Doppler waveforms in the left renal artery demonstrated a normal low resistance pattern and flow velociti es within the normal range indicating less than 60% diameter stenos is. No significant differential in size was observed between the right and left kidneys. RENAL ARTERY VELOCITIES: Right renal artery velocities direct exa m. Right renal artery origin PSV the 108 cm /s EDV 22 cm/s Right renal artery proximal segment PSV 124 cm/s EDV 30 cm/s Right renal artery mid segment PSV 125 c m/s EDV 28 cm/s rate Right renal artery distal segment PSV 10 7 cm/s EDV 24 cm/s Aorta PSV 178 cm/s. Right renal artery aortic ratio 0.7 Left renal artery velocities direct exam . Left renal artery origin PSV 153 cm/s ED V 33 cm/s Left renal artery proximal segment PSV 1 34 cm/s EDV 22 cm/s. Left renal artery mid segment PSV 100 cm /s EDV 18 cm/s. Renal artery distal segment PSV 100 cm/s EDV 15 cm/s. Aorta PSV 178 cm/s. Left renal artery aortic ratio of 0.9 SEGMENTAL ARTERY RESISTIVE INDICES: Right kidney: The Doppler waveforms recorded from the segmental arteries of the right kidney demonstrated a normal low r esistance pattern normal systolic upstroke and normal pulsatility . Left kidney: The Doppler waveforms recorded from the segmental arteries of the left kidney demonstrated a normal low resista nce pattern normal systolic upstroke and normal pulsatility. Segmental artery resistive indices in di rect exam: Right kidney superior pole 0.75 Right kidney mid pole 0.70 Right kidney inferior pole 0.76 Left kidney superior pole 0.75 Left kidney midpole 0.77 Left kidney inferior pole 0.75 Renal veins: The right renal vein was patent. The left renal vein was patent. STUDY QUALITY: Good The [facility] Heart Vascular Diagnostic Clinic and Laboratory Dedicated to Excellence in Vascular Care To schedule a Vascular Lab study or cons ultation Call [phone]. OPTION 2. I appreciate the referral to the [facility] Hea rt Vascular Diagnostic Lab RENETTA KRISHNA MD Procedure Note Renetta Krishna MD - 09/28/2013Formatt ing of this note might be different from the original. [facility] RENAL ARTERY DUPLEX ULTRASOUND Patient: NIKITA ANDERSON Date: 09/28/2013 9:39 AM : 1950 Ordering Provider: RAHEEM OVALLES MD Primary Care Physician: RAHEEM OVALLES MD Interpreting Physician: RENETTA KRISHNA MD, RPVI Technologist: SAHRA FRAZIER Yesenia INDICATION: Hypertension, 401.1 CONCLUSION: 1. Patent bilateral renal arteries. The flow velocities in the right and left renal arteries are within the n ormal range 2. No significant change since the last study (09/03/2012) INCIDENTAL FINDINGS: Simple appearing cy st (1.8 X 1.7 X 1.4 cm) is seen in the left kidney COMPARISON: 09/03/2012 RECOMMENDATIONS: Continued medical therapy for treatment of the patient's hypertension appears appropriate. CORRELATION WITH CLINICAL INDICATION: Renal artery duplex ultrasonography did not demonstrate any significant renal artery stenosis to acc ount for the patient's hypertensive heart disease. EXAM DESCRIPTION AND FINDINGS: A limited renal artery ultrasound was pe rformed using duplex ultrasound imaging with spectral and col or Doppler. Right kidney: The right kidney measures 12.06cm in arely gth. The Doppler waveforms in the right renal artery demonstrated a normal low resistance pattern and flow velociti es within the normal range indicating less than 60% diameter stenos is. Left kidney: The left kidney measures 11.9 cm in russ th. The Doppler waveforms in the left renal artery demonstrated a normal low resistance pattern and flow velociti es within the normal range indicating less than 60% diameter stenos is. No significant differential in size was observed between the right and left kidneys. RENAL ARTERY VELOCITIES: Right renal artery velocities direct exa m. Right renal artery origin PSV the 108 cm /s EDV 22 cm/s Right renal artery proximal segment PSV 124 cm/s EDV 30 cm/s Right renal artery mid segment PSV 125 c m/s EDV 28 cm/s rate Right renal artery distal segment PSV 10 7 cm/s EDV 24 cm/s Aorta PSV 178 cm/s. Right renal artery aortic ratio 0.7 Left renal artery velocities direct exam . Left renal artery origin PSV 153 cm/s ED V 33 cm/s Left renal artery proximal segment PSV 1 34 cm/s EDV 22 cm/s. Left renal artery mid segment PSV 100 cm /s EDV 18 cm/s. Renal artery distal segment PSV 100 cm/s EDV 15 cm/s. Aorta PSV 178 cm/s. Left renal artery aortic ratio of 0.9 SEGMENTAL ARTERY RESISTIVE INDICES: Right kidney: The Doppler waveforms recorded from the segmental arteries of the right kidney demonstrated a normal low r esistance pattern normal systolic upstroke and normal pulsatility . Left kidney: The Doppler waveforms recorded from the segmental arteries of the left kidney demonstrated a normal low resista nce pattern normal systolic upstroke and normal pulsatility. Segmental artery resistive indices in di rect exam: Right kidney superior pole 0.75 Right kidney mid pole 0.70 Right kidney inferior pole 0.76 Left kidney superior pole 0.75 Left kidney midpole 0.77 Left kidney inferior pole 0.75 Renal veins: The right renal vein was patent. The left renal vein was patent. STUDY QUALITY: Good The [facility] Heart Vascular Diagnostic Clinic and Laboratory Dedicated to Excellence in Vascular Care To schedule a Vascular Lab study or cons ultation Call [phone]. OPTION 2. 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
--- OUTSIDE RECORDS SUMMARY | 2022-05-02 12:42 | XMS_ITS | Encounter Summary ---
:1950 Author Organization [place] Address [address] [facility] [place] [address] Care Team Providers Name Role Phone Anatoliy Jackson MD Primary Care Provider Encounter Details Date Type Department Care Team Description 07/06/2013 Orders Only [facility] Brenda Cannon l cardiovascular [facility] Cony RN stress te st (Primary Dx) Heart Care [address] [id number] Social History Tobacco Use Types Packs/Day Years Used Date Never Smoker Alcohol Use Standard Drinks/Week Comments Yes 0 (1 standard drink = 0.6 oz pure alcoho l) occasionally Sex Assigned at Date Recorded Male 03/12/2021 12:11 PM CDT documented as of this encounter Miscellaneous Notes Addendum Note - Brenda Cannon RN - 07/06/2013 9:32 AM VIDEO GAME TESTER Addended by: BRENDA CANNON on: 07/06/2013 09:32 AM Modules accepted: Orders O GAME TESTER documented in this encounter Plan of Treatment Upcoming Encounters Date Type Specialty Care Team Description 05/15/2022 Hospital Encounter Surgery Singh Torres MD [facility] [address] [place] [id number] (Wo rk) 05/15/2022 Surgery Surgery Neo Torres MD BLEPHAROPLASTY BILATERAL [facility] PTOSIS REPAIR BILATERAL [address] [place] [id number] (Wo rk) 06/25/2022 Ancillary Procedure Cardiology Kirk Silver MD [address] [place] [id number] (Wo rk) Scheduled Procedures Name Priority Associated Diagnoses Date/Time REPAIR, PTOSIS, BILATERAL, Dermatochalas is 05/15/2022 7:30 AM CDT WITH BILATERAL BLEPHAROPLASTY 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 REPAIR, ECTROPION, EYE, Dermatochalasis 05/15/2022 7:30 AM CDT BILATERAL 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 documented as of this encounter Visit Diagnoses Diagnosis Abnormal cardiovascular stress test - Pr imary Other nonspecific abnormal cardiovascula r system function study 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
--- OUTSIDE RECORDS SUMMARY | 2022-05-02 12:42 | XMS_ITS | Encounter Summary ---
:1950 Author Organization [place] Address [address] [facility] [place] [address] Care Team Providers Name Role Phone Anatoliy Jackson MD Primary Care Provider Encounter Details Date Type Department Care Team Description 09/03/2012 Results Only [facility] Gabriella Ovalles [facility] Heart Care MD [place] [address] [facility] [place] [address] CLIN[address] [phone] [place] [address] (Wo rk) Social History Tobacco Use Types [...] [address] [place] [address] (Wo rk) 05/15/2022 Surgery Surgery Neo Torres MD BLEPHAROPLASTY BILATERAL [facility] PTOSIS REPAIR BILATERAL [address] [place] [address] (Wo rk) 06/25/2022 Ancillary Procedure Cardiology Kirk Silver MD [address] [place] [address] (Wo rk) Scheduled Procedures Name Priority Associated [...] Diagnosis Comme nts US L EXT ART 09/03/2012 10:21 AM Results for this DOPPLER SEG PRINT FINISHER procedure are i n PRESSURES W EXER the results BASHIR section. documented in this encounter Results US arter lower ext with exercise (vascular lab) (09/03/2012 10:21 AM PRINT FINISHER) Anatomical Region Laterality Modality Lower Extremity Other Specimen (Source) Anatomical Collection Method Collection Time Re ceived Time Location / / Volume Laterality 09/03/2012 10:21 AM PRINT FINISHER Narrative 09/05/2012 2:54 PM PRINT FINISHER [facility] ACCREDITED VASCULAR LABORATORY BILATERAL LOWER EXTREMITY ARTERIAL NONIN VASIVE RY WITH PHYSIOLOGIC TESTING AND EXERCISE PATIENT NAME: NIKITA ANDERSON Date: 09/03/2012 10:21 AM : 1950 ORDERING PROVIDER: Toby Ovalles M.D. PRIMARY CARE PHYSICIAN: MD SANDOR KAY M.D. INTERPRETING PHYSICIAN: ??Toby Ovalles M.D. TECHNOLOGIST: Heath Gonzalez RVT INDICATION: Claudication, 443.9 CONCLUSIONS: Physiologic testing with exercise indica mauro bilateral significant obstructive peripheral arterial disease. The patient performed treadmill exercise d for 5 minutes at 2.0 miles per hour at 12% elevation The patient did not experience symptoms of claudication during the exercise protocol. No significant differential in the brach ial artery blood pressure was observed to indicate unilateral subclavi an artery stenosis Right lower extremity: The right RY at rest measures 1.19 whic h is normal. The right YR after treadmill exercise w as 0.76 This systolic pressure at the ankle decr eased from 173 mm of mercury to 131 mm of mercury which is an abnorma l response to exercise The response to exercise was abnormal co nsistent with significant obstructive peripheral arterial disease affecting the right lower extremity Left lower extremity: The left RY at rest measured 1.04 which is within the normal range. The left RY after treadmill exercise wa s 0.75 The systolic pressure at the ankle decre ased from 151 mm of mercury to 1-9 mm of mercury which is an abnorma l response to exercise The response to exercise was abnormal co nsistent with a significant obstructive peripheral arterial disease affecting the left lower extremity RECOMMENDATIONS: The presence of peripheral arterial dise ase does indicate an increased risk for cardiovascular event for which preventative measures are appropriate. Medical therapy for peripheral arterial disease is recommended including pharmacotherapy and a supervis ed walking program. The patient is being evaluated in the mt scular diagnostic clinic. EXAM DESCRIPTION AND FINDINGS: A bilateral noninvasive lower extremity arterial exam was completed to include an RY at rest and post tread mill exercise, continuous wave Doppler, segmental pressures, and t he pulse volume recording waveforms. The patient performed treadmill exercise 5 minutes at 2 miles per hour at 12% elevation. The patient did not experience symptoms of claudication during the exercise protocol. Doppler waveforms: The Doppler waveforms demonstrated A nor mal triphasic pattern in the arteries of the lower extremities Pulse volume recording waveforms: The pulse volume recording waveforms wer e symmetrical demonstrating a normal systolic upstroke and dicrotic no tch in both lower extremities. Segmental pressures: Segmental pressures did not demonstrate any significant pressure differential in both lower extremities. STUDY QUALITY: The study quality was excellent. I appreciate the referral to the [facility] rt Vascular Diagnostic Lab To schedule an evaluation in the [facility] rt Vascular Diagnostic Clinic, call [phone]. RAHEEM OVALLES MD Procedure Note Raheem Ovalles MD - [address] [facility] ACCREDITED VASCULAR LABORATORY BILATERAL LOWER EXTREMITY ARTERIAL NONIN VASIVE RY WITH PHYSIOLOGIC TESTING AND EXERCISE PATIENT NAME: NIKITA ANDERSON Date: 09/03/2012 10:21 AM : 1950 ORDERING PROVIDER: Toby Ovalles M.D. PRIMARY CARE PHYSICIAN: MD SANDOR KAY M.D. INTERPRETING PHYSICIAN: Konstantin Tatum. TECHNOLOGIST: Heath Gonzalez RVT INDICATION: Claudication, 443.9 CONCLUSIONS: Physiologic testing with exercise indica mauro bilateral significant obstructive peripheral arterial disease. The patient performed treadmill exercise d for 5 minutes at 2.0 miles per hour at 12% elevation The patient did not experience symptoms of claudication during the exercise protocol. No significant differential in the brach ial artery blood pressure was observed to indicate unilateral subclavi an artery stenosis Right lower extremity: The right YR at rest measures 1.19 whic h is normal. The right RY after treadmill exercise w as 0.76 This systolic pressure at the ankle decr eased from 173 mm of mercury to 131 mm of mercury which is an abnorma l response to exercise The response to exercise was abnormal co nsistent with significant obstructive peripheral arterial disease affecting the right lower extremity Left lower extremity: The left RY at rest measured 1.04 which is within the normal range. The left RY after treadmill exercise wa s 0.75 The systolic pressure at the ankle decre ased from 151 mm of mercury to 1-9 mm of mercury which is an abnorma l response to exercise The response to exercise was abnormal co nsistent with a significant obstructive peripheral arterial disease affecting the left lower extremity RECOMMENDATIONS: The presence of peripheral arterial dise ase does indicate an increased risk for cardiovascular event for which preventative measures are appropriate. Medical therapy for peripheral arterial disease is recommended including pharmacotherapy and a supervis ed walking program. The patient [facility] EXAM DESCRIPTION AND FINDINGS: A bilateral noninvasive lower extremity arterial exam was completed to include an RY at rest and post tread mill exercise, continuous wave Doppler, segmental pressures, and t he pulse volume recording waveforms. The patient performed treadmill exercise 5 minutes at 2 miles per hour at 12% elevation. The patient did not experience symptoms of claudication during the exercise protocol. Doppler waveforms: The Doppler waveforms demonstrated A nor mal triphasic pattern in the arteries of the lower extremities Pulse volume recording waveforms: The pulse volume recording waveforms wer e symmetrical demonstrating a normal systolic upstroke and dicrotic no tch in both lower extremities. Segmental pressures: Segmental pressures did not demonstrate any significant pressure differential in both lower extremities. STUDY QUALITY: The study quality was excellent. I appreciate the referral to the [facility] rt Vascular Diagnostic Lab To schedule an evaluation in the [facility] rt Vascular Diagnostic Clinic, call [phone]. RAHEEM OVALLES MD Raheem Ovalles MD IMG US ORDERABLES documented in this encounter Visit Diagnoses Not on filedocumented in this encounter Care Teams Supervisor Rides Relationship Specialty Start Date End Date Anatoliy Jackson MD PCP - General 05/14/12 documented as of this encounter
--- OUTSIDE RECORDS SUMMARY | 2022-05-02 12:42 | XMS_ITS | Encounter Summary ---
:1950 Author Organization [place] Address [address] [facility] [address] Care Team Providers Name Role Phone Anatoliy Jackson MD Primary Care Provider Reason for Visit (Routine) - Closed Specialty Diagnoses / Procedures Referred By Contact Refer red To Contact Cardiology Diagnoses US RY WITH SEGMENTAL PRESSURE- EXERCISE Procedure Notes: claudication intermittent Zz Sh Cardiology Img Procedures RADIOLOGY [address] [place] [address] Phone: Referral ID Status Reason Start Date Expiration Date Visits Requ ested Visits Authorized [id number] Closed 08/23/2012 08/23/2013 1 1 Encounter Details Date Type Department Care Team Description 09/03/2012 [place] [address] [address] Radiology - [facility] Heart Raheem Ovalles MD [facility] [address] [place] [id number] Imaging [address] [place] [address] Social History Tobacco Use Types Packs/Day Years Used Date Never Smoker Alcohol Use Standard Drinks/Week Comments Yes 0 (1 standard drink = 0.6 oz pure alcoho l) occasionally Sex Assigned at Date Recorded Male 03/12/2021 12:11 PM CDT documented as of this encounter Medications at Time of Discharge Medication Sig Dispensed Refills Start Date End Date ONE TOUCH ULTRA as directed 100 0 06/22/2006 TEST STRPIndications: Type II or unspecified type diabetes mellitus without mention of complication, not stated as uncontrolled SYRINGE B-D MICRO as directed 100 0 09/18/2004 FINE 1/2 CC SYRINGES AVAPRO 150 MG OR 1 TABLET DAILY 42 0 03/27/2004 12/0 11/2012 TABSIndications: Unspecified essential hypertension, Type II or unspecified type diabetes mellitus without mention of complication, not stated as uncontrolled BENICAR 40 MG OR As directed 30 0 01/07/2005 013 TABSIndications: Type II or unspecified type diabetes mellitus without mention of complication, not stated as uncontrolled, Unspecified essential hypertension INSULIN GLARGINE Initially 40 units Quantity 2 05/01/2004 07/13/2013 100 U/ML SC sq qhs, titrate up sufficient for SOLNIndications: as directed to one month Type II or target AM glucose unspecified type <110 diabetes mellitus without mention of complication, not stated as uncontrolled INSULIN LISPRO As directed One month 0 01/07/2005 (HUMAN) 100 UNIT/ML SC SOLNIndications: Type II or unspecified type diabetes mellitus without mention of complication, not stated as uncontrolled LANTUS 100 UNIT/ML as directed 100 0 09/18/200404/18 SC SOLN LEVITRA As directed (one 3 0 03/27/2004 07/13/20 13 10MGIndications: tablet first time, Impotence of may increase to 2 organic origin tablets subsequently if needed) LEVITRA As directed (one 3 0 08/15/2003 07/13/20 13 10MGIndications: tablet first time, Impotence of may increase to 2 organic origin tablets subsequently if needed) LIPITOR 10 MG OR 1 tab PO QD (Once 30 1 11/04/2002 1 09/13/2012 TABS per day) VIAGRA 100 MG OR 1 TABLET DAILY 10 11 10/03/2004 1 09/13/2012 TABSIndications: NEEDED Impotence of organic origin VIAGRA 50 MG OR As directed (one 6 0 08/15/200311/2012 TABSIndications: tablet first time, Impotence of may increase to two organic origin tablets subsequently if needed) documented as of this encounter Plan of Treatment Upcoming Encounters Date Type Specialty Care Team Description 05/15/2022 Hospital Encounter Surgery Singh Torres MD [facility] [address] [place] [address] (Wo rk) 05/15/2022 Surgery Surgery Neo Torres MD BLEPHAROPLASTY BILATERAL [facility] PTOSIS REPAIR BILATERAL [address] [place] [address] (Wo rk) 06/25/2022 Ancillary Procedure Cardiology Kirk Silver MD [address] [place] [id number] (Wo rk) Scheduled Procedures Name Priority Associated [...] on filedocumented in this encounter Care Teams Stunner Animal Relationship Specialty Start Date End Date Anatoliy Jackson MD PCP - General 05/14/12 documented as of this encounter
--- OUTSIDE RECORDS SUMMARY | 2022-05-02 12:42 | XMS_ITS | Encounter Summary ---
:1950 Author Organization [place] Address [address] [facility] [place] [address] Care Team Providers Name Role Phone Anatoliy Jackson MD Primary Care Provider Heath More MD Unavailable Peter Gipson MD Unavailable Encounter Details Date Type Department Care Team Description 09/03/2012 Historic Results [facility] Heart Unknown, [facility] ider Clinic [address] [place] [address] Social History [...] [address] [place] [id number] (Wo rk) 05/15/2022 Surgery Surgery Neo Torres MD BLEPHAROPLASTY BILATERAL [facility] PTOSIS REPAIR BILATERAL [address] [place] [address] (Wo rk) 06/25/2022 Ancillary Procedure Cardiology Kirk Silver MD [address] [place] [address] (Wo rk) Scheduled Procedures Name Priority Associated [...] VASCULAR - HIM SCAN 09/03/2012 12:00 AM ROVING SIZER - ARCHIVE documented in this encounter Results US VASCULAR - HIM SCAN - ARCHIVE (09/03/2012 12:00 AM ROVING SIZER) Specimen (Source) Anatomical Location Collection Method / Collectio n Time Received Time / Laterality Volume 09/03/2012 Narrative This result has an attachment that is no t available. Provider Scan IMG US ORDERABLES documented in this encounter Visit Diagnoses Not on filedocumented in this encounter Care Teams Edi Coordinator Relationship Specialty Start Date End Date Anatoliy Jackson MD PCP - General 05/14/12 Heath More PCP - Internal Medicine INTERNAL MEDICINE - 01/06/14 MD Andreas ENDOCRINOLOGY, [facility] [address] [place] [phone] Peter Gipson PCP - Urology 04/02/15 MD Jordan [facility] UR[facility] [address] [place] [address] [address] [place], [place] [id number] documented as of this encounter
--- OUTSIDE RECORDS SUMMARY | 2022-05-02 12:42 | XMS_ITS | Encounter Summary ---
:1950 Author Organization [place] Address [address] [facility] [place] [address] Care Team Providers Name Role Phone Eliza Jackson MD Primary Care Provider Heath More MD Unavailable Peter Gipson MD Unavailable Peter Aguiar MD Unavailable Peter Mcmullen MD Unavailable Fidencio Solis MD Unavailable Hallie Maldonado COOK ITALIAN STYLE FOOD CREDIT CONTROL ASSISTANT Unavailable [phone] Giuliana Gomez COOK IT[employer]IAN STYLE FOOD CREDIT CONTROL ASSISTANT Unavailable [phone] Fidencio Solis MD Unavailable Giuliana Gomez APRN CREDIT CONTROL ASSISTANT Unavailable [phone] Giuliana Gomez APRN CREDIT CONTROL ASSISTANT Unavailable [phone] Fidencio Solis MD Unavailable Encounter Details Date Type Department Care Team Description 09/15/2012 Office Visit-[facility] Anu Kaye MD [address] [facility] [address] VASCULAR CLINIC [place] [address] [address] [facility] [phone] [address] [place] [address] (Wo rk) Social History Tobacco Use Types Packs/Day Years Used Date Never Smoker Alcohol Use Standard Drinks/Week Comments Yes 0 (1 standard drink = 0.6 oz pure alcoho l) occasionally Sex Assigned at Date Recorded Male 03/12/2021 12:11 PM CDT documented as of this encounter Progress Notes Raheem Ovalles MD - 09/16/2012 11:00 AM CST Vascular Diagnostic Clinic Note Created by: Raheem Ovalles M.D. DATE: 09/15/2012 BJ ANDERSONY DATE OF : 1950 AGE: [age] years old ACCOUNT: [id number] Referring Physician: ELIZA JACKSON Referring Clinic: [facility] CURRENT DIAGNOSES 1. Diabetes Mellitus-Insulin Dependent, 250.00 2. Hyperlipidemia-mixed disorder, 272.4 3. - Claudication-intermittent, 443.9 4. - Shortness of Breath, 786.05 5. HYPERTENSIVE HEART DISEASE UNSPECIFIED, 402.9 6. BENIGN ESSENTIAL HYPERTENSION, 401.1 7. - Abnormal Function Test unspecified, 794.30 8. CAD, 414.00 ALLERGIES lipitor, Nasal drip Procaine HCl, procaine, Heart racing MEDICATIONS (prior to changes made today) 1. aspirin, buffered 325 mg tablet, 1 p.o. daily 2. cilostazol 50 mg tablet, 1 dose by mouth twice each day 3. clonidine 0.1 mg Tablet, 1 po twice daily 4. gabapentin 300 mg Capsule, 1-2 tab daily PRN 5. Humalog 100 unit/mL Solution, as directed 6. Lantus 100 unit/mL Solution, Take as Directed 7. lisinopril-hydrochlorothiazide 20-12.5 mg Tablet, 1 p.o. twice daily 8. metoprolol succinate 50 mg Tablet Sustained Release 24 hr, 1 p.o. twice daily 9. nitroglycerin 0.4 mg tablet, sublingual, 1 Tab Sublingual - May Repeat Every 5 Minutes x2 For Chestpain 10. simvastatin 40 mg Tablet, 1 p.o. qAM CHIEF COMPLAINTS Follow up for peripheral vascular disease HISTORY OF PRESENT ILLNESS HISTORY OF PRESENT ILLNESS Mr. Anderson, a 61-year-old gentleman, was evaluated for peripheral arterial disease. He has experienced chronic intermittent claudication affecting his lower extremities. Physiologic testing including rest and exercise ankle brachial indices have demonstrated significant bilateral peripheral arterial d isease. A duplex ultrasonography has demonstrated diffuse atherosclerotic plaque in the arteries of his lower extremities without significant focal narrowing. As a result, medical management was recommended. The patient was instructed in a walking program and cilostazol was prescribed six months ago. His intermittent claudication has gradually improved. He is not experiencing any claudication which limits his daily activities. He has not suffered from any rest pain or developed any ulcerations in his lower extremities. On exam, he presents as a huang, heavyset gentleman. He does appear comfortable at rest and while upwalking in the office. The blood pressure is 132/60 in the left brachial artery and 130/64 in the right brachial artery. His pulse rate is 52. He stands 71 inches tall and weighs 223 pounds. The breathsounds are normal. No pulmonary rales, wheezes or rhonchi are heard. The inspiratory effort at rest is unlabored. No chest wall tenderness is present. The cardiac impulse is felt in the midclavicular line. The first and second heart sounds are normal at the apex. No murmurs, rubs or gallops are heard.The rhythm is regular, and the rate is normal. The carotid upstrokes are normal. No carotid artery bruits are heard. The venous column in his neck does not appear distended. The posterior tibial pulsesare palpable, but diminished in both feet. He does appear alert and oriented. He displays normal judgment and insight. Physiologic testing including rest and exercise ankle brachial indices showed normal ankle brachial indices at rest. However, a decrease in the systolic pressure in both ankles was observed post exercise. Treadmill walking for five minutes at 2 miles/hour and 12% elevation did not provoke any intermittent claudication on his recent study. A renal artery duplex ultrasound study again demonstrated normal flow velocities in the renal arteries. A simple cyst was again observed in the left kidney, which has not changed significantly in comparison with his previous study. 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, ED, decreased libido, mild nonproliferative retinopathy, hyperlipidemia Past Cardiac Illnesses: claudication Cardiology Procedures-NonInvasive: stress echo Oct 2004, stress echo Jan 2008, myocardial perfusion (Nuc) Jan 2011, echocardiogram May 2012, myocardial perfusion (Nuc) Apr 2012 Vascular Procedures-Noninvasive: RY-Exercise Jan 2011, 08/21 bilateral [...] 01/18, EF<GT>55% by Echo -May 2012, ( 55-60%) Nuclear Results: 01/18 mild inferior ischemia, =compared to prev study may be no significant change in the extent of suspected inferior ischemia,prev study was challenging for interpretation due to bowel artifact EF normal by stress echo 10/12, EF <GT>70% by stress echo 01/15, EF 50% by Nuclear study 01/18, EF<GT>55% by Echo -May 2012 and ( 55-60%) FAMILY HISTORY: Parents - hypertension; CARDIAC RISK FACTORS Tobacco Abuse: negative; Family History of Heart Disease: negative; Hyperlipidemia: positive; Hypertension: positive; Diabetes Mellitus: insulin dependent; Prior History of Heart Disease: negative; Obesity:BMI<GT>25 (Over weight); Sedentary Life Style:positive; Age:positive ; LDL Goal <LT>100 SOCIAL HISTORY Alcohol Use - drinks rarely; Smoking - smoked in college 40 years ago; Diet - caffeine use-3-4 per day, less salt and low fat low sugar; Lifestyle - ; Exercise - no regular exercise; Residence -lives in [place] year round; Place of - [place]; REVIEW OF SYSTEMS GENERAL pt has been busy and not dedicated enough for exercise INTEGUMENTARY denies any change in hair or nails, rashes, or skin lesions. EYES wears eye glasses/contact lenses EARS, NOSE, THROAT, MOUTH denies any hearing loss, epistaxis, hoarseness or difficulty speaking. RESPIRATORY denies dyspnea, cough, wheezing or hemoptysis. CARDIOVASCULAR negative for palpitations, chest pain, orthopnea, [...] much, cramping to left calf with dedicated walks PHYSICAL EXAMINATION VITAL SIGNS: Blood Pressure: 132/60Sitting, Left arm, large cuff 130/64Sitting, Right arm, large cuff Pulse- 52.00/min. Weight- 223.00 lbs. Height- 71 BMI Measurement: 31 31 CONSTITUTIONAL cooperative, in no acute distress SKIN [...] time, person and place. MEDICATIONS UPDATED/STARTED TODAY: cilostazol 50 mg tablet, 1 dose by mouth twice each day, 180 MEDICATIONS REFILLED/STOPPED TODAY: cilostazol 50 mg Tablet 1 dose by mouth twice each day 180 Refill IMPRESSIONS/PLAN In summary, Mr. Anderson is evaluated for the following cardiovascular conditions: 1. Peripheral arterial disease. 2. Chronic kidney disease. 3. Hyperlipidemia. 4. Hypertension. His intermittent claudication has improved with cilostazol and walking program. Currently, he is notexperiencing any intermittent claudication which limits his daily activities. I would recommend continuing cilostazol. I did encourage him to resume walking for at least 30 minutes each day, temporarily stopping if necessary to relieve his intermittent claudication. I did review the results of his renal artery ultrasound exam. He has not developed any significant obstructive renal artery disease. A simple cyst was again observed in the left kidney, which has not significantly changed in comparison with his previous study. Mr. Anderson will return for a follow-up visit to the vascular diagnostic clinic in one year to reassess his peripheral arterial disease, follow-up renal artery ultrasound and rest exercise ankle brachial indices will be obtained at that time. I will remain available to see him in the meantime if in your judgment the need arises. I have appreciated the opportunity to participate in the care of your patient, Mr. Anderson. TODAYS ORDERS 1. RY Exercise w/Seg Pressures+PVR [address] Ovalles 2. Vasc F/U With Dr Charlette M.D. [address] Charlette Ovalles M.D. documented in this encounter Plan of Treatment Upcoming Encounters Date Type Specialty Care Team Description 05/15/2022 Hospital Encounter Surgery Singh Torres MD [facility] [address] [place] [address] (Wo rk) 05/15/2022 Surgery Surgery Neo Torres MD BLEPHAROPLASTY BILATERAL [facility] PTOSIS REPAIR BILATERAL [address] [place] [address] (Wo rk) 06/25/2022 Ancillary Procedure Cardiology Kirk Silver MD [address] [place] [address] (Wo rk) Scheduled Procedures Name Priority Associated [...] on filedocumented in this encounter Care Teams Agile Business Analyst Relationship Specialty Start Date End Date Eliza Jackson PCP - General 05/14/12 Heath More PCP - Internal Medicine INTERNAL MEDICINE - 01/06/14 MD Andreas ENDOCRINOLOGY, DIABETES [facility] [address] [place] [phone] Peter Gipson PCP - Urology 04/02/15 MD Jordan [facility] [address] [facility] [address] [place] [address] Peter Aguiar Assigned Heart and 06/01/20 12/15/20 MD Ishan Vascular Provider [address] [place], [place] [phone] Peter Mcmullen Assigned Musculoskeletal 06/01/20 MD Mahendra Provider [address] [place], [place] [address] Fidencio Solis MD Assigned Heart and 12/16/20 02/21/[address], Vascular Provider [address] [place] [address] Hallie Maldonado, Assigned Heart and 02/22/2105/18 COOK ITALIAN STYLE FOOD CREDIT CONTROL ASSISTANT Vascular Provider [address] [place] [address] Giuliana Gomez Assigned Heart and 05/19/2106/15/21 A, COOK IT[employer]IAN [employer]YLE FOOD CREDIT CONTROL ASSISTANT Vascular Provider [address] [place] [address] Fidencio Solis MD Assigned Heart and 06/16/21 06/29/[address], Vascular Provider [address] [place] [address] Giuliana Gomez Assigned Heart and 06/30/21 A, COOK IT[employer]IAN STYLE FOOD CREDIT CONTROL ASSISTANT Vascular Provider [address] [place] [address] Giuliana Gomez Nurse Practitioner Cardiovascular Disease 2 A, COOK IT[employer]IAN [employer]YLE FOOD CREDIT CONTROL ASSISTANT [address] [place] [address] Fidencio Solis MD MD Cardiovascular Disease 08/21/21 [address] [place] [id number] documented as of this encounter
--- OUTSIDE RECORDS SUMMARY | 2022-05-02 12:42 | XMS_ITS | Encounter Summary ---
:1950 Author Organization [place] Address [address] [facility] [place] [address] Care Team Providers Name Role Phone Anatoliy Jackson MD Primary Care Provider Heath More MD Unavailable Peter Gipson MD Unavailable Encounter Details Date Type Department Care Team Description 06/14/2013 Historic Results [facility] Heart Unknown, [facility] ider Clinic [address] [place] [address] Social History [...] [address] [place] [address] (Wo rk) 05/15/2022 Surgery Surgery Neo Torres MD BLEPHAROPLASTY BILATERAL [facility] PTOSIS REPAIR BILATERAL [address] [place] [address] (Wo rk) 06/25/2022 Ancillary Procedure Cardiology Kirk Silver MD [address] [place] [address] (Wo rk) Scheduled Procedures Name Priority Associated [...] NUCLEAR CARDIAC - HIM 06/14/2013 12:00 AM TUNNEL ELASTIC OPERATOR ZIGZAG SCAN - ARCHIVE documented in this encounter Results NUCLEAR CARDIAC - HIM SCAN - ARCHIVE (06/14/2013 12:00 AM TUNNEL ELASTIC OPERATOR ZIGZAG) Specimen (Source) Anatomical Location Collection Method / Collectio n Time Received Time / Laterality Volume 06/14/2013 Narrative This result has an attachment that is no t available. Provider Scan IMG NM ORDERABLES documented in this encounter Visit Diagnoses Not on filedocumented in this encounter Care Teams Visual Merchandising Specialist Relationship Specialty Start Date End Date Anatoliy Jackson MD PCP - General 05/14/12 Heath More PCP - Internal Medicine INTERNAL MEDICINE - 01/06/14 MD Andreas ENDOCRINOLOGY, [facility]INE [facility] [address] [place] [phone] Peter Gipson PCP - Urology 04/02/15 MD Jordan [facility] [address] [place] [address] [address] [place], [place] [id number] documented as of this encounter
--- OUTSIDE RECORDS SUMMARY | 2022-05-02 12:42 | XMS_ITS | Encounter Summary ---
:1950 Author Organization [place] Address [address] [facility] [place] [address] Care Team Providers Name Role Phone Eliza Jackson MD Primary Care Provider Heath More MD Unavailable Peter Gipson MD Unavailable Peter Aguiar MD Unavailable Peter Mcmullen MD Unavailable Fidencio Solis MD Unavailable Hallie Maldonado APRN PROCESS STEWARD Unavailable [phone] Giuliana Gomez APRN PROCESS STEWARD Unavailable Fidencio Solis MD Unavailable Giuliana Gomez APRN PROCESS STEWARD Unavailable [phone] Giuliana Gomez APRN PROCESS STEWARD Unavailable [phone] Fidencio Solis MD Unavailable Encounter Details Date Type Department Care Team Description 08/12/2012 Office Visit-[facility] [place], [facility] Anu Craig DO [address] [place] [address] [place] [id number] [phone] Social History Tobacco Use Types Packs/Day Years Used Date Never Smoker Alcohol Use Standard Drinks/Week Comments Yes 0 (1 standard drink = 0.6 oz pure alcoho l) occasionally Sex Assigned at Date Recorded Male 03/12/2021 12:11 PM CDT documented as of this encounter Progress Notes Hyacinth Plummer, - 08/13/2012 9:48 AM CST Progress Note Created by: Brendan Plummer D.O. DATE: 08/12/2012 LELO NIKITA DATE OF : 1950 AGE: [age] years old Referring Physician: ELIZA JACKSON Referring Clinic: [facility] CURRENT DIAGNOSES 1. - Shortness of Breath, 786.05 2. HYPERTENSIVE HEART DISEASE UNSPECIFIED, 402.9 3. BENIGN ESSENTIAL HYPERTENSION, 401.1 4. - Abnormal Function Test unspecified, 794.30 5. Diabetes Mellitus-Insulin Dependent, 250.00 6. Hyperlipidemia-mixed disorder, 272.4 7. - Claudication-intermittent, 443.9 8. CAD, 414.00 ALLERGIES lipitor, Nasal drip Procaine HCl, procaine, Heart racing MEDICATIONS (prior to changes made today) 1. aspirin, buffered 325 mg tablet, 1 p.o. daily 2. cilostazol 50 mg Tablet, 1 dose by mouth twice each day [...] mg Tablet, 1 p.o. qAM CHIEF COMPLAINTS HISTORY OF PRESENT ILLNESS Mr. Anderson is a pleasant 61-year-old male with a history of type diabetes mellitus, hypertension, hyperlipidemia and peripheral arterial disease. He has had symptoms of chest burning and dyspnea with exertion and has had abnormal stress testing suggesting perfusion defect in the inferior wall. His most recent stress test in April of this year suggested possible progression of disease to basal inferior infarction and mild left ventricular dysfunction. A follow-up transthoracic echocardiogram, however, did not confirm this. He had no evidence of regional wall motion abnormality on echocardiogramand his ejection fraction was calculated at 55 to 60%. Mr. Anderson tells me that in the past few months he has not had any difficulty with recurrent chest burning. He, in fact, went to [place] and [place] and did not have any difficulty with his breathing or with burning or discomfort in his chest with these activities. He typically is more active in the warmer months, less active in the winter months, therefore, he is not certain of his breathing, whether that has changed atall, but again did not have much difficulty [place] the mountains. He does believe that on cilostazol that his legs have improved and he has not had much difficulty at all with leg discomfort with physical exertion. I do note his visit with Dr. Lopez and that he has had significant improvement in his creatinine off of fenofibrate. His last blood tests show a creatinine of 1.32, is remarkably down from his previous off of the fenofibrate. He has not had a repeat cholesterol profile since being offof this medication, but is scheduled to see Dr. More in the upcoming months with a cholesterol profile. If he does have increased triglycerides off of this medication I think this would be an appropriate time to try him on Lovaza or [id number] fish oil capsules. Recent studies have indicatedthat niacin, while improving triglycerides and HDL profile has not resulted in a decrease in overallmorbidity or mortality from cardiovascular events. Mr. Anderson has not been checking his blood pressure recently, however, on his last office visit it was 100 systolic/70. Initially his blood pressure today was 145/62, pulse 60. On recheck after sitting through our clinic visit for a few minutes recheck blood pressure is 130/70. His weight has fluctuated just a few pounds in the last year, however, since January of 2011 he has put on 10 pounds. EXAMINATION: I do not appreciate carotid bruits. Cardiovascular tones are regular without murmur, gallop or rub. Lungs are clear posteriorly. He has diminished, but palpable pulses in the distal extremities without peripheral edema. 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, ED, decreased libido, mild nonproliferative retinopathy, hyperlipidemia Past Cardiac Illnesses: claudication Cardiology Procedures-NonInvasive: stress echo Oct 2004, stress echo Jan 2008, myocardial perfusion (Nuc) Jan 2011, echocardiogram May 2012, myocardial perfusion (Nuc) Apr 2012 Vascular Procedures-Noninvasive: RY-Exercise Jan 2011, 08/21 bilateral LE arterial duplex and aortoiliac duplex, 10/19 renal artery US Peripheral Vasc Procedure Results: 01/18 ABIs-normal RY RLE, near normal RY LLE (trace decrease in post exercise RY in LLE), 08/21 RY rest: right=1.12, left=1.10, no significant obstructive PAD or aortoiliac disease, 10/19 renal US: less than 60% stenosis on both right and left renal artery, left renal cyst PMHx Echo Results: 05/21 no RWMA, RVSP 38 mmHg PMHx Stress Echo Results: 10/12-normal, 01/15-normal, <GT>[address] depression inf and lat leads with exercise Left Ventricular Ejection Fraction: EF normal by stress echo 10/12, EF <GT>70% by stress echo 01/15, EF 50% by Nuclear study 01/18, EF<GT>55% by Echo -May 2012, ( 55-60%) Nuclear Results: 01/18 mild inferior ischemia, 9-2012=compared to prev study may be no significant change in the extent of suspected inferior ischemia,prev study was challenging for interpretation due to bowel artifact EF normal by stress echo 10/12, EF <GT>70% by stress echo 01/15, EF 50% by Nuclear study 01/18, EF<GT>55% by Echo -May 2012 and ( 55-60%) FAMILY HISTORY: Parents - hypertension; SOCIAL HISTORY Alcohol Use - drinks rarely; Smoking - never smoked; Diet - caffeine use-3-4 per day, low fat Diet and less salt; Lifestyle - ; Exercise - no regular exercise; Residence - lives in [place] year round; Place of - [place]; REVIEW OF SYSTEMS GENERAL pt doesn't have a lot of activity to do. INTEGUMENTARY denies any change in hair or nails, rashes, or skin lesions. EYES wears eye glasses/contact lenses EARS, NOSE, THROAT, MOUTH denies any hearing loss, epistaxis, hoarseness or difficulty speaking. RESPIRATORY denies dyspnea, cough, wheezing or hemoptysis. CARDIOVASCULAR light headedness, when looking up while at work, not recently ABDOMINAL denies ulcer disease, hematochezia or melena. MUSCULOSKELETAL arthritis of the wrist(s) hand(s) NEUROLOGICAL diabetic seizure PSYCHIATRIC denies any history of depression, substance abuse or change in cognitive functions. ENDOCRINE insulin dependent diabetes mellitus HEMATOLOGICAL/IMMUNOLOGIC denies any food allergies, seasonal allergies, bleeding disorders. VASCULAR left calf pain after 1/4 mile PHYSICAL EXAMINATION VITAL SIGNS: Blood Pressure: 145/62Sitting, Left arm, large cuff Pulse- 60.00/min. Weight- 222.40 lbs. Height- 71 BMI Measurement: 31 CONSTITUTIONAL cooperative, in no acute distress [...] PULSES pulses below the femoral arteries are diminished EXTREMITIES & BACK no clubbing, cyanosis or edema NEUROLOGICAL no gross motor deficits noted, affect appropriate, oriented to time, person and place. MEDICATIONS UPDATED/STARTED TODAY: aspirin, buffered 325 mg tablet, 1 p.o. daily, #0 MEDICATIONS REFILLED/STOPPED TODAY: aspirin, buffered 81 mg Tablet 1 p.o. daily #0 Dosage Increased IMPRESSIONS/PLAN In summary, Mr. Anderson is a pleasant 61-year-old male with history of insulin dependent diabetes mellitus, hypertension, mixed hyperlipidemia and peripheral arterial disease. 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 He has actually seen an improvement in his symptoms over the past few months without recurrence of chest burning or diminished breathing capacity. At this time I will recommend continued medical management with improvements in his aerobic activities for overall cardiovascular benefit and weight loss. He should follow-up with Dr. More for aggressive control of his cholesterol. Again I will recommend Lovaza if he has seen an increase in his triglycerides or lowering of his HDL, in addition to exercise and weight loss. I have cautioned him about his atypical symptoms. He may, in fact, have coronary artery disease, specifically involving the right coronary artery and with diabetes mellitus his symptoms may be vague and/or atypical. Should he see in increase in difficulties with his breathing or recurrence of chest burning we may want to pursue coronary angiogram for further evaluation. I appreciate Dr. Lopez's input in regards to his kidney function with this as well. I would like to see him back in April with repeat nuclear stress test. I amasking him to have this performed in our clinic in [place]. With our new camera we have drastic reduction in radiation dose and also improvement in defining the inferior wall in males and therefore I think we will have a much better test there this next year for assessing evidence for progression of ischemia. Please feel free to contact me with any questions you have in regards to his care. ADDENDUM: We did not discuss his blood sugars today, however, if he is not optimally controlled, I would consider switching his beta hong to either coreg or bystolic. TODAYS ORDERS 1. Treadmill Nuclear Study 9 mos IN [place] ONLYIF Meds, able to convert to pharm stress if pt unable to exercise 2. Return Visit 9 months C. Kiara Plummer D.O. documented in this encounter Plan of Treatment Upcoming Encounters Date Type Specialty Care Team Description 05/15/2022 Hospital Encounter Surgery Singh Torres MD [facility] [address] [place] [id number] (Wo rk) 05/15/2022 Surgery Surgery Neo Torres MD BLEPHAROPLASTY BILATERAL [facility] PTOSIS REPAIR BILATERAL [address] [place] [id number] (Wo rk) 06/25/2022 Ancillary Procedure Cardiology Kirk Silver MD [address] [place] [id number] (Wo rk) Scheduled Procedures Name Priority Associated [...] filedocumented in this encounter Care Teams Senior Hris Analyst Relationship Specialty Start Date End Date Eliza Jackson, PCP - General 05/14/12 Heath More PCP - Internal Medicine INTERNAL MEDICINE - 01/06/14 MD Andreas ENDOCRINOLOGY, [facility] [address] [place] [phone] Peter Gipson PCP - Urology 04/02/15 MD Jordan [facility] [address] [facility] [address] [place], [place] [id number] Peter Aguiar Assigned Heart and 06/01/20 12/15/20 MD Ishan Vascular Provider [address] [place], [place] [id number] Peter Mcmullen Assigned Musculoskeletal 06/01/20 MD Mahendra Provider [address] [facility] [address] [place], [place] [address] Fidencio Solis MD Assigned Heart and 12/16/20 02/21/[address], Vascular Provider [address] [place], [place] [phone] Hallie Maldonado, Assigned Heart and 02/22/2105/18 FLAME HARDENING MACHINE SETTER PROCESS STEWARD Vascular Provider [address] [place], [place] [phone] Giuliana Gomez Assigned Heart and 05/19/2106/15/21 A, FLAME HARDENING MACHINE SETTER PROCESS STEWARD Vascular Provider [address] [place], [place] [address] Fidencio Solis MD Assigned Heart and 06/16/21 06/29/[address], Vascular Provider [address] [place], [place] [phone] Giuliana Gomez Assigned Heart and 06/30/21 A, FLAME HARDENING MACHINE SETTER PROCESS STEWARD Vascular Provider [address] [place] [phone] Giuliana Gomez Nurse Practitioner Cardiovascular Disease 2 A, FLAME HARDENING MACHINE SETTER PROCESS STEWARD [address] [place] [id number] Fidencio Solis MD MD Cardiovascular Disease 08/21/21 [address], [facility] [address] [place] [id number] documented as of this encounter
--- OUTSIDE RECORDS SUMMARY | 2022-05-02 12:42 | XMS_ITS | Encounter Summary ---
:1950 Author Organization [facility] Address [address] [facility] [place] [address] Care Team Providers Name Role Phone Eliza Jackson MD Primary Care Provider Heath More MD Unavailable Peter Gipson MD Unavailable Peter Aguiar MD Unavailable Peter Mcmullen MD Unavailable Fidencio Solis MD Unavailable Hallie Maldonado APRN VETERINARY TECHNICIAN ASSISTANT Unavailable [phone] Giuliana Gomez APRN VETERINARY TECHNICIAN ASSISTANT Unavailable [phone] Fidencio Solis MD Unavailable Giuliana Gomez APRN VETERINARY TECHNICIAN ASSISTANT Unavailable [phone] Giuliana Gomez APRN VETERINARY TECHNICIAN ASSISTANT Unavailable [phone] Fidencio Solis MD Unavailable Encounter Details Date Type Department Care Team Description 07/22/2013 Office Visit-[facility] [place] Pryor APRN VETERINARY TECHNICIAN ASSISTANT [address] [facility] [address] [place] [address] [place] [address] (Wo rk) Social History Tobacco Use Types Packs/Day Years Used Date Never Smoker Alcohol Use Standard Drinks/Week Comments Yes 0 (1 standard drink = 0.6 oz pure alcoho l) occasionally Sex Assigned at Date Recorded Male 03/12/2021 12:11 PM CDT documented as of this encounter Progress Notes Coty Gurrola NP - 08/14/2013 10:26 AM CST Progress Note Created by: Coty Gurrola N.P. DATE: 07/22/2013 NIKITA ANDERSON DATE OF : 1950 AGE: [age] years old Referring Physician: ELIZA JACKSON Referring Clinic: [facility] CURRENT DIAGNOSES 1. Diabetes Mellitus-Insulin Dependent, 250.00 2. Hyperlipidemia-mixed disorder, 272.4 3. - Shortness of Breath, 786.05 4. HYPERTENSIVE HEART DISEASE UNSPECIFIED, 402.9 5. BENIGN ESSENTIAL HYPERTENSION, 401.1 6. - Abnormal Function Test unspecified, 794.30 7. CAD, 414.00 8. - Peripheral Vascular Disease, 443.9 ALLERGIES atorvastatin calcium, Nasal drip fenofibrate, Elevated creatinine Procaine HCl, procaine, Heart racing MEDICATIONS (prior to changes made today) 1. aspirin, buffered 325 mg tablet, 1 p.o. daily 2. cilostazol 50 mg tablet, 1 dose by mouth twice each day 3. clonidine 0.1 mg Tablet, 1 po twice daily 4. Flomax 0.4 mg capsule,extended release 24hr, 1 p.o. daily 5. gabapentin 300 mg Capsule, 1-2 tab daily PRN 6. Humalog 100 unit/mL Solution, as directed 7. Lantus 100 unit/mL Solution, Take as Directed 8. lisinopril-hydrochlorothiazide 20-12.5 mg Tablet, 1 p.o. twice daily 9. metoprolol succinate 50 mg Tablet Sustained Release 24 hr, 1 p.o. twice daily 10. nitroglycerin 0.4 mg tablet, sublingual, 1 Tab Sublingual - May Repeat Every 5 Minutes x2 For Chestpain 11. simvastatin 40 mg Tablet, 1 p.o. qAM CHIEF COMPLAINTS follow up post angioram HISTORY OF PRESENT ILLNESS: Nikita Anderson is a 62-year-old gentleman with assumed coronary artery disease by nuclear stress testing and history of peripheral arterial disease. His peripheral disease is followed by Dr. Ovalles. He has been placed on cilostazol and has done a walking program which is abit inconsistent and his claudication has improved. He is a diabetic with multiple risk factors for coronary artery disease. He has had RCA ischemia on nuclear stress testing which seems to have increased in size recently, associated with some shortnessof breath when he was trying to push a wheelbarrow uphill in his yard. He has [place] the [place] and has had no other exercise intolerance. LV function has been normal. Based on this finding Dr. Plummer sent him for an invasive coronary angiogram done on July [address] Peter Aguiar via a right radial artery approach. He had no more than 60% stenosis which was notable in the obtuse marginal number 2 and the proximal PDA. Fractional flow reserves were done to the right PDA with adeno sine, revealing 0.84, the distal circumflex 0.87, and the circumflex OM-2 0.92, deemed not to be flow limiting. His glucose was very elevated when he checked in for his procedure. It was felt that he could have some microvascular dysfunction contributing to his symptoms and he was encouraged to followup with the planer setter, which is scheduled in August. He is now back on aspirin therapy and a full program of medical management, including aspirin, as I noted, metoprolol, and simvastatin. He also takes lisinopril and clonidine for blood pressure control, which is reasonable both today and in the Disbursing Officer. He had lipids done at the hospital with his procedures. LDL was 86, HDL 35, triglycerides 231. Givenhis elevated sugars it is not surprising that his triglycerides are high as his fasting glucose whenhe checked in was 349. There has been discussion about putting him on fish oil. He is not very anxious to start this. Sincehe is not exercising, he has uncontrolled glucose levels, and could lose some weight, lifestyle modification should probably help him the most. He will discuss this with Dr. More. We also discussed Dr. Plummer's thoughts of switching metoprolol to carvedilol or Bystolic. However, the patient does not want to do this here as his planer setter did start the metoprolol originally.He will talk this over with the planer setter and see what his decision is. He denies any further shortness of breath. His right radial site looks clean and intact. Historically his LDL has been in the 70s so this 86 is quite higher. We did spend a fair amount of time today counseling on lifestyle modifications to improve this number. He is on simvastatin at 40 mg q.d. He will have lipids again when he sees his planer setter in August and pending those results he may needa drug change. However, he has taken Lipitor before with some nasal congestion and has had renal dysfunction on fenofibrate per his report. Certainly, Crestor is an option, which may help his HDL, but this is brand and I am not certain if he has brand name coverage. He wishes to have more discretion at Endocrinology. 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, ED, decreased libido, mild nonproliferative retinopathy, hyperlipidemia Past Cardiac Illnesses: claudication, non flow limiting cad Cardiac/Vasc Procedures-Invasive: cardiac cath (left) Jul 2013 Cardiology Procedures-NonInvasive: stress echo Oct 2004, stress echo Jan 2008, myocardial perfusion (Nuc) Jan 2011, echocardiogram May 2012, myocardial perfusion (Nuc) Apr 2012, Vascular Procedures-Noninvasive: RY-Exercise Jan 2011, 08/21 bilateral LE arterial duplex and aortoiliac duplex, 10/19 renal artery US, 08/22: Rest/exercise RY and renal ultrasound Cardiac Cath Results: 07/22 mod 2 vessel CAD (no culprit hemodynamically severe lesions) - 60% right PDA (FFR 0.84), 50-60% distal CFX (FFR 0.87), 50-60% OM2 (FFR 0.92) Peripheral Vasc Procedure Results: 01/18 ABIs-normal RY [...] ( 55-60%), EF 54% by nuclear study , EF 60-65% by cath 07/22 Nuclear Results: 01/18 mild inferior ischemia, =compared to prev study may be no significant change in the extent of suspected inferior ischemia,prev study was challenging for interpretation due to bowel artifact,06/22-Small,partially reversible, mid to basal-inferolateral defect consistent with infarct with mild gabbi-infarct ischemia. Second small, apical-lateral defect consistent with mild ischemia. Stress testing induced anginal chest pain. ECG changes consist LVEF of 60-65% documented via cardiac cath on 07/13/2013 FAMILY HISTORY: Parents - hypertension; SOCIAL HISTORY [...] with in own home and lives in [place] year round in own home; Place of - [place]; REVIEW OF SYSTEMS GENERAL feeling good, energy has been okay INTEGUMENTARY denies any change in hair or nails, rashes, or skin lesions. EYES wears eye glasses/contact lenses EARS, NOSE, THROAT, MOUTH denies any hearing loss, epistaxis, hoarseness or difficulty speaking. RESPIRATORY cough, from post nasal drip, snoring, same CARDIOVASCULAR light headedness, 1 episode today, per HPI ABDOMINAL denies ulcer disease, hematochezia or melena. [...] this PHYSICAL EXAMINATION VITAL SIGNS: Blood Pressure: 118/50Sitting, Left arm, large cuff Pulse- 58.00/min. Weight- 216.00 lbs. Height- 71.00 BMI Measurement: 30 CONSTITUTIONAL cooperative, in no [...] the femoral arteries are diminished, +2 radial pulses, right radial artery site clean without hum or bruit EXTREMITIES & BACK no clubbing, cyanosis or edema NEUROLOGICAL no gross motor deficits noted, affect appropriate, oriented to time, person and place. MEDICATIONS UPDATED/STARTED TODAY: Flomax 0.4 mg capsule,extended release 24hr, 1 p.o. daily, #0 (Zero) nitroglycerin 0.4 mg tablet, sublingual, 1 Tab Sublingual - May Repeat Every 5 Minutes x2 For Chestpain, #25 2 bottles MEDICATIONS REFILLED/STOPPED TODAY: nitroglycerin 0.4 mg tablet, sublingual 1 Tab Sublingual - May Repeat Every 5 Minutes x2 For Chestpain #25 2 bottles Refill IMPRESSIONS/PLAN IMPRESSION/PLAN: 1. Coronary artery disease, deemed not to be flow limiting. He may have a false positive stress testor perhaps microvascular dysfunction given his uncontrolled diabetes. For now I would continue his medical program. He will see Dr. Plummer back in six months' time. I have asked him to return to see ussooner if he has any symptoms of chest pain or shortness of breath. I have renewed his nitroglycerinsublingual. 2. Hypertension, controlled. 3. Diabetes, uncontrolled. He will talk with his planer setter about switching metoprolol to carvedilol or Bystolic, about his glucose control, his elevated triglycerides, and his lipid control per his own request. 4. Dyslipidemia, borderline control. I would consider Crestor for this man if possible to help HDL and lower LDL. Again, he wishes to talk this over with his planer setter. 5. We will see him back in six months, or sooner if symptoms arise. Greater than 50% of this 45 minute visit today was spent in counseling, record review, and answeringa multitude of questions. TODAYS ORDERS 1. F/U with Brendan Plumemr, DO december or january Coty Gurrola, N.P. documented in this encounter Plan of Treatment Upcoming Encounters Date Type Specialty Care Team Description 05/15/2022 Hospital Encounter Surgery Singh Torres MD [facility] [address] [place] [address] (Wo rk) 05/15/2022 Surgery Surgery Neo Torres MD BLEPHAROPLASTY BILATERAL [place] [facility] PTOSIS REPAIR BILATERAL [address] [place] [address] (Wo rk) 06/25/2022 Ancillary Procedure Cardiology Kirk Silver MD [address] [place] [id number] (Wo rk) Scheduled Procedures Name Priority Associated [...] on filedocumented in this encounter Care Teams Washing And Screening Plant Supervisor Relationship Specialty Start Date End Date Eliza Jackson, PCP - General 05/14/12 Heath More PCP - Internal Medicine INTERNAL MEDICINE - 01/06/14 MD Andreas ENDOCRINOLOGY, [facility] [address] [place] [phone] Peter Gipson PCP - Urology 04/02/15 MD Jordan [facility] [address] [place] [address] [address] [place], [place] [id number] Peter Aguiar Assigned Heart and 06/01/20 12/15/20 MD Ishan Vascular Provider [address] [place] [id number] Peter Mcmullen Assigned Musculoskeletal 06/01/20 MD Mahendra Provider [address] [place], [place] [address] Fidencio Solis MD Assigned Heart and 12/16/20 02/21/[address], Vascular Provider [address] [place] [address] Hallie Maldonado, Assigned Heart and 02/22/2105/18 SEWER MAINTENANCE SUPERVISOR VETERINARY TECHNICIAN ASSISTANT Vascular Provider [address] [place] [address] Giuliana Gomez Assigned Heart and 05/19/2106/15/21 A, SEWER MAINTENANCE SUPERVISOR VETERINARY TECHNICIAN ASSISTANT Vascular Provider [address] [place], [place] [address] Fidencio Solis MD Assigned Heart and 06/16/21 06/29/[address], Vascular Provider [address] [place] [address] Giuliana Gomez Assigned Heart and 06/30/21 A, SEWER MAINTENANCE SUPERVISOR VETERINARY TECHNICIAN ASSISTANT Vascular Provider [address] [place] [address] Giuliana Gomez Nurse Practitioner Cardiovascular Disease 2 A, SEWER MAINTENANCE SUPERVISOR VETERINARY TECHNICIAN ASSISTANT [address] [place] [address] Fidencio Solis MD MD Cardiovascular Disease 08/21/[address], [address] [place] [address] documented as of this encounter
--- OUTSIDE RECORDS SUMMARY | 2022-05-02 12:42 | XMS_ITS | Encounter Summary ---
:1950 Author Organization [facility] Address [address] [place] [address] Care Team Providers Name Role Phone Anatoliy Jackson MD Primary Care Provider Encounter Details Date Type Department Care Team Description 06/14/2013 Historic Results [facility] Heart Unknown, Doct or, Clinic [place] [facility] [address] [facility] [address] [place] [phone] Social History Tobacco Use Types Packs/Day Years [...] [address] [place] [id number] (Wo rk) 05/15/2022 Surgery Surgery Neo Torres MD BLEPHAROPLASTY BILATERAL [place] [facility] PTOSIS REPAIR BILATERAL [address] [place] [phone] (Wo rk) 06/25/2022 Ancillary Procedure Cardiology Kirk Silver MD [address] [place] [address] (Wo rk) Scheduled Procedures Name Priority Associated Diagnoses Date/Time REPAIR, PTOSIS, BILATERAL, Dermatochalas is 05/15/2022 7:30 AM CDT WITH BILATERAL BLEPHAROPLASTY 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 [facility] HISTORICAL Routine 06/14/2013 12:00 AM Resu lts for this RESULTS COFFEE WEIGHER procedure are i n the results section. documented in this encounter Results (ABNORMAL) [facility] Historical Results (06/14/2013 12:00 AM COFFEE WEIGHER) [facility] Sodium 142 136 - 145 [facility] mmol/L HISTORICAL RESULTS Potassium 4.2 3.5 - 5.1 [facility] mmol/L HISTORICAL RESULTS Chloride 105 98 - 107 [facility] mmol/L HISTORICAL RESULTS Carbon Dioxide 28 23 - 29 [facility] mmol/L HISTORICAL RESULTS Anion Gap Ratio 13 RATIO [facility] HISTORICAL RESULTS Urea Nitrogen 35 (H) 7 - 30 [facility] mg/dL HISTORICAL RESULTS Creatinine 1.4 (H) 0.7 - 1.3 [facility] mg/dL HISTORICAL RESULTS Calcium 9.7 8.5 - 10.5 [facility] mg/dL HISTORICAL RESULTS Glucose 220 (H) 70 - 105 [facility] mg/dL HISTORICAL RESULTS BUN/Creatinine 25.5 CALC [facility] Ratio HISTORICAL RESULTS eGFR Calculated 67 >60 mL/min [facility] (Black HISTORICAL Reference) RESULTS eGFR Calculated 56 (L) >60 mL/min [facility] (Non Black HISTORICAL Reference) RESULTS Specimen (Source) Anatomical Location Collection Method / Collectio n Time Received Time / Laterality Volume 06/14/2013 06/14/2013 Doctor Unknown MD LABORATORY Performing Organization Address City/State/ZIP Code Phon e Number [facility] HISTORICAL RESULTS (ABNORMAL) [facility] Historical Results (06/14/2013 12:00 AM COFFEE WEIGHER) [facility] gist Method Time Signature Triglycerides 161 (H) 0 - 150 [facility] mg/dL HISTORICAL RESULTS Cholesterol, 149 0 - 199 [facility] Total mg/dL HISTORICAL RESULTS HDL Cholesterol 45 >40 mg/dL [facility] HISTORICAL RESULTS LDL Cholesterol 72 70 - 160 [facility] Calculated CALC HISTORICAL RESULTS VLDL - Calc 32 <40 CALC [facility] HISTORICAL RESULTS Cholesterol/HDL 3.3 <4.4 CALC [facility] Ratio HISTORICAL RESULTS ALT 15 5 - 30 [facility] U/L HISTORICAL RESULTS Specimen (Source) Anatomical Location Collection Method / Collectio n Time Received Time / Laterality Volume 06/14/2013 06/14/2013 Doctor Unknown MD LABORATORY Performing Organization Address City/State/ZIP Code Phon e Number [facility] HISTORICAL RESULTS documented in this encounter Visit Diagnoses Not on filedocumented in this encounter Care Teams Manager Route Relationship Specialty Start Date End Date Anatoliy Jackson MD PCP - General 05/14/12 documented as of this encounter
--- OUTSIDE RECORDS SUMMARY | 2022-05-02 12:42 | XMS_ITS | Encounter Summary ---
:1950 Author Organization [place] Address [address] [place] [address] Care Team Providers Name Role Phone Anatoliy Jackson MD Primary Care Provider Encounter Details Date Type Department Care Team Description 09/03/2012 Results Only [facility] Gabriella Ovalles [facility] Heart Care MD Varg[place] [address] [facility] [place] [address] CLINIC [phone] [place] [address] (Wo rk) Social History Tobacco Use Types [...] [address] [place] [address] (Wo rk) 05/15/2022 Surgery Surgery Neo Torres MD BLEPHAROPLASTY BILATERAL [facility] UPPER L IDS, INTERNAL & SURGEONS [place] PTOSIS REPAIR BILATERAL [address] [place] [address] (Wo rk) 06/25/2022 Ancillary Procedure Cardiology Kirk Silver MD [address] [place] [address] (Wo rk) Scheduled Procedures Name Priority Associated [...] Associated Diagnosis Comme nts US RENAL LIMITED 09/03/2012 10:22 AM Resu lts for this WITH DOPPLER ORDER PLANNER procedure are i n LIMITED the results section. documented in this encounter Results US Renal with doppler (09/03/2012 10:22 AM ORDER PLANNER) Anatomical Region Laterality Modality Abdomen/Pelvis Other Specimen (Source) Anatomical Collection Method Collection Time Re ceived Time Location / / Volume Laterality 09/03/2012 10:22 AM ORDER PLANNER Narrative 09/05/2012 3:09 PM ORDER PLANNER [facility]CRED[facility] VASCULAR LABORATORY RENAL ARTERY DUPLEX ULTRASOUND Patient: NIKITA ANDERSON Date: 09/03/2012 10:22 AM : 1950 Ordering Provider: Toby Ovalles M.D. Primary Care Physician: MD SANDOR KAY M.D. Interpreting Physician: ??RAHEEM DE LA PAZ MD Technologist: Nadia Gonzalez RDMS ??RVT INDICATION: Hypertension, 401.1 CONCLUSION: Right renal artery: The flow velocities in the right renal a rtery are within the normal range indicating less than 60% diameter stenosis. Left renal artery: The flow velocities in the left renal ar alena are within the normal range indicating less than 60% diameter stenosis. INCIDENTAL FINDINGS: A round renal cyst 1.9 centimeters in di ameter was observed in the left lateral kidney which probably repre sents a benign simple cyst.. A CT scan is recommended for further lulu luation since a small area of calcification may be present in the near field wall of the cyst. COMPARISON: No previous renal artery duplex ultrasou nd was available for comparison. RECOMMENDATIONS: Continued medical management of the marcell ent's hypertension is recommended. CORRELATION WITH CLINICAL INDICATION: Renal artery duplex ultrasonography did not demonstrate any significant renal artery stenosis to acc ount for the patient's hypertension.. EXAM DESCRIPTION AND FINDINGS: A limited renal artery ultrasound was pe rformed using duplex ultrasound imaging with spectral and col or Doppler. Right kidney: The right kidney measures 11.73cm in arely gth. The Doppler waveforms in the right renal artery demonstrated a normal low resistance pattern and flow velociti es within the normal range indicating less than 60% diameter stenos is. Left kidney: The left kidney measures 11.77 cm in arely gth. The Doppler waveforms in the left renal artery demonstrated a normal low resistance pattern and flow velociti es within the normal range indicating less than 60% diameter stenos is. No significant differential in size was observed between the right and left kidneys. RENAL ARTERY VELOCITIES: Right renal artery velocities direct exa m. Right renal artery origin PSV the 110 cm /s EDV 21 cm/s Right renal artery proximal segment PSV 115 cm/s EDV 23 cm/s Right renal artery mid segment PSV 130 c m/s EDV 30 cm/s rate Right renal artery distal segment PSV 64 cm/s EDV 37 cm/s Aorta PSV 147 cm/s. Right renal artery aortic ratio is not a pplicable since the peak systolic velocity in the aorta is greate r than 100 cm/s. Left renal artery velocities direct exam . Left renal artery origin PSV 90 cm/s EDV 15 cm/s Left renal artery proximal segment PSV 1 21 cm/s EDV 21 cm/s. Left renal artery mid segment PSV 88 cm/ s EDV 16 cm/s. Renal artery distal segment PSV 81 cm/s EDV 18 cm/s. Aorta PSV 147 cm/s. Left renal artery aortic ratio of is not applicable since the peak systolic velocity in the aorta is greate r than 100 cm/s. SEGMENTAL ARTERY RESISTIVE INDICES: Right kidney: The Doppler waveforms recorded from the segmental arteries of the right kidney demonstrated a normal low r esistance pattern normal systolic upstroke and normal pulsatility . Left kidney: The Doppler waveforms recorded from the segmental arteries of the left kidney demonstrated a normal low re sistance pattern normal systolic upstroke and normal pulsatility . Segmental artery resistive indices in di rect exam: Right kidney superior pole 0.73 Right kidney mid pole 0.78 Left kidney superior pole 0.68 Left kidney midpole 0.71 Left kidney inferior pole 0.80 Renal veins: The right renal vein was patent. The left renal vein was patent. STUDY QUALITY: The study quality was exc ellent. I appreciate the referral to the [facility] rt Vascular Diagnostic Lab To schedule an evaluation in the [facility] rt Vascular Diagnostic Clinic, call [phone]. RAHEEM OVALLES MD Procedure Note Raheem Ovalles MD - [address] [facility]CREDITED VASCULAR LABORATORY RENAL ARTERY DUPLEX ULTRASOUND Patient: NIKITA ANDERSON Date: 09/03/2012 10:22 AM : 1950 Ordering Provider: Toby Ovalles M.D. Primary Care Physician: MD SANDOR KAY M.D. Interpreting Physician: RAHEEM Jerry MD Technologist: Nadia Gonzalez RDMS RVT INDICATION: Hypertension, 401.1 CONCLUSION: Right renal artery: The flow velocities in the right renal a rtery are within the normal range indicating less than 60% diameter stenosis. Left renal artery: The flow velocities in the left renal ar alena are within the normal range indicating less than 60% diameter stenosis. INCIDENTAL FINDINGS: A round renal cyst 1.9 centimeters in di ameter was observed in the left lateral kidney which probably repre sents a benign simple cyst.. A CT scan is recommended for further lulu luation since a small area of calcification may be present in the near field wall of the cyst. COMPARISON: No previous renal artery duplex ultrasou nd was available for comparison. RECOMMENDATIONS: Continued medical management of the marcell ent's hypertension is recommended. CORRELATION WITH CLINICAL INDICATION: Renal artery duplex ultrasonography did not demonstrate any significant renal artery stenosis to acc ount for the patient's hypertension.. EXAM DESCRIPTION AND FINDINGS: A limited renal artery ultrasound was pe rformed using duplex ultrasound imaging with spectral and col or Doppler. Right kidney: The right kidney measures 11.73cm in arely gth. The Doppler waveforms in the right renal artery demonstrated a normal low resistance pattern and flow velociti es within the normal range indicating less than 60% diameter stenos is. Left kidney: The left kidney measures 11.77 cm in [facility]. The Doppler waveforms in the left renal artery demonstrated a normal low resistance pattern and flow velociti es within the normal range indicating less than 60% diameter stenos is. No significant differential in size was observed between the right and left kidneys. RENAL ARTERY VELOCITIES: Right renal artery velocities direct exa m. Right renal artery origin PSV the 110 cm /s EDV 21 cm/s Right renal artery proximal segment PSV 115 cm/s EDV 23 cm/s Right renal artery mid segment PSV 130 c m/s EDV 30 cm/s rate Right renal artery distal segment PSV 64 cm/s EDV 37 cm/s Aorta PSV 147 cm/s. Right renal artery aortic ratio is not a pplicable since the peak systolic velocity in the aorta is greate r than 100 cm/s. Left renal artery velocities direct exam . Left renal artery origin PSV 90 cm/s EDV 15 cm/s Left renal artery proximal segment PSV 1 21 cm/s EDV 21 cm/s. Left renal artery mid segment PSV 88 cm/ s EDV 16 cm/s. Renal artery distal segment PSV 81 cm/s EDV 18 cm/s. Aorta PSV 147 cm/s. Left renal artery aortic ratio of is not applicable since the peak systolic velocity in the aorta is greate r than 100 cm/s. SEGMENTAL ARTERY RESISTIVE INDICES: Right kidney: The Doppler waveforms recorded from the segmental arteries of the right kidney demonstrated a normal low r esistance pattern normal systolic upstroke and normal pulsatility . Left kidney: The Doppler waveforms recorded from the segmental arteries of the left kidney demonstrated a normal low re sistance pattern normal systolic upstroke and normal pulsatility . Segmental artery resistive indices in di rect exam: Right kidney superior pole 0.73 Right kidney mid pole 0.78 Left kidney superior pole 0.68 Left kidney midpole 0.71 Left kidney inferior pole 0.80 Renal veins: The right renal vein was patent. The left renal vein was patent. STUDY QUALITY: The study quality was exc ellent. I appreciate the referral to the [facility] Vascular Diagnostic Lab To schedule an evaluation in the [facility] V[facility], call [phone]. RAHEEM OVALLES MD Raheem Ovalles MD IMG US ORDERABLES documented in this encounter Visit Diagnoses Not on filedocumented in this encounter Care Teams Flag Car Driver Relationship Specialty Start Date End Date Anatoliy Jackson MD PCP - General 05/14/12 documented as of this encounter
--- OUTSIDE RECORDS SUMMARY | 2022-05-02 12:42 | XMS_ITS | Encounter Summary ---
:1950 Author Organization [place] Address [address] [facility] [place] [address] Care Team Providers Name Role Phone Anatoliy Jackson MD Primary Care Provider Encounter Details Date Type Department Care Team Description 07/13/2013 Results Only [facility], DO Results [address] [place] [id number] (Wo rk) Social History Tobacco Use Types [...] [address] [place] [id number] (Wo rk) 05/15/2022 Surgery Surgery Neo Torres MD BLEPHAROPLASTY BILATERAL [facility] UPPER L IDS, INTERNAL & SURGEONS [place] PTOSIS REPAIR BILATERAL [address] [place] [id number] (Wo rk) 06/25/2022 Ancillary Procedure Cardiology Kirk Silver MD [address] [place] [address] (Wo rk) Scheduled Procedures Name Priority Associated [...] Date/Time Associated Diagnosis Comme nts HEART CATH LEFT 07/13/2013 11:23 AM Resul ts for this HEART CATH DIRECTOR OF SECURITIES AND REAL ESTATE procedure are i n the results section. documented in this encounter Results Heart Cath Left heart cath (07/13/2013 11:23 AM DIRECTOR OF SECURITIES AND REAL ESTATE) Anatomical Region Laterality Modality Other Specimen (Source) Anatomical Collection Method Collection Time Re ceived Time Location / / Volume Laterality 07/13/2013 11:23 AM DIRECTOR OF SECURITIES AND REAL ESTATE Narrative 07/14/2013 8:30 AM DIRECTOR OF SECURITIES AND REAL ESTATE NIKITA ANDERSON ? PROCEDURES PERFORMED: 1. ??Left [...] lately. ??He is seeking to see his supervisor remelt because his insulin doses are not taking [...] and a modified Slava's test, a 6 [place] sheath was placed in the right radial artery. ??A 5 [place] Robinson catheter was advanced into the aortic [...] He is seeking to se e his supervisor remelt because his insulin doses are not taking [...] and a modified Slava's test, a 6 [place] sheath was placed in the right radial artery. A 5 [place] Robinson ca theter was advanced into the [...] on filedocumented in this encounter Care Teams Douper Relationship Specialty Start Date End Date Anatoliy Jackson MD PCP - General 05/14/12 documented as of this encounter
--- OUTSIDE RECORDS SUMMARY | 2022-05-02 12:42 | XMS_ITS | Encounter Summary ---
:1950 Author Organization [place] Address [address] [place] [address] Care Team Providers Name Role Phone Anatoliy Jackson MD Primary Care Provider Reason for Visit (Routine) - Closed Specialty Diagnoses / Procedures Referred By Contact Refer red To Contact Cardiology Diagnoses NM MPI MULTI REST/STRESS Procedure Notes: coronary artery disease Zz Cardiology Img Procedures RADIOLOGY [address] [place] [address] Phone: Referral ID Status Reason Start Date Expiration Date Visits Requ ested Visits Authorized [id number] Closed 05/25/2013 05/25/2014 1 1 Encounter Details Date Type Department Care Team Description 06/14/2013 Hospital Encounter [place] Laura Tiwari Radiology - [facility] Heart Kiara, DO Imaging [address] [place] [address] [place] [address] [phone] Social History Tobacco Use Types Packs/Day Years [...] LISPRO As directed One month 0 01/07/2005 1 (HUMAN) 100 UNIT/ML SC SOLNIndications: Type II [...] PA [address] [place] [address] (Wo rk) 05/15/2022 Surgery Surgery Neo Torres MD BLEPHAROPLASTY BILATERAL [facility] UPPER L IDS, INTERNAL & SURGEONS [place] PTOSIS REPAIR BILATERAL [address] [place] [address] (Wo rk) 06/25/2022 Ancillary Procedure Cardiology Kirk Silver MD [address] [place] [id number] (Wo rk) Scheduled Procedures Name Priority Associated [...] on filedocumented in this encounter Care Teams Shipping Hand Relationship Specialty Start Date End Date Anatoliy Jackson MD PCP - General 05/14/12 documented as of this encounter
--- OUTSIDE RECORDS SUMMARY | 2022-05-02 12:42 | XMS_ITS | Encounter Summary ---
:1950 [address] Address [address] [facility] [address] Care Team Providers Name Role Phone Anatoliy Jackson MD Primary Care Provider Heath More MD Unavailable Peter Gipson MD Unavailable Encounter Details Date Type Department Care Team Description 09/03/2012 Historic Results [facility] Heart Unknown, [facility] ider Clinic [address] [place] [address] Social History [...] [address] [place] [address] (Wo rk) 05/15/2022 Surgery Surgery Neo Torres MD BLEPHAROPLASTY BILATERAL [facility] UPPER L IDS, INTERNAL & SURGEONS PA PTOSIS REPAIR BILATERAL [address] [place] [address] (Wo rk) 06/25/2022 Ancillary Procedure Cardiology Kirk Silver MD [address] [place] [address] (Wo rk) Scheduled Procedures Name Priority Associated [...] VASCULAR - HIM SCAN 09/03/2012 12:00 AM SALES REPRESENTATIVE - ARCHIVE documented in this encounter Results US VASCULAR - HIM SCAN - ARCHIVE (09/03/2012 12:00 AM SALES REPRESENTATIVE) Specimen (Source) Anatomical Location Collection Method / Collectio n Time Received Time / Laterality Volume 09/03/2012 Narrative This result has an attachment that is no t available. Provider Scan IMG US ORDERABLES documented in this encounter Visit Diagnoses Not on filedocumented in this encounter Care Teams Linux Kernel Engineer Relationship Specialty Start Date End Date Anatoliy Jackson MD PCP - General 05/14/12 Heath More PCP - Internal Medicine INTERNAL MEDICINE - 01/06/14 MD Andreas ENDOCRINOLOGY, [facility] [address] [place] [id number] Peter Gipson PCP - Urology 04/02/15 MD Jordan [facility] UROLOGY [address] [place] [address] [address] [place], [place] [id number] documented as of this encounter
--- OUTSIDE RECORDS SUMMARY | 2022-05-02 12:42 | XMS_ITS | Encounter Summary ---
:1950 Author Organization [place] Address [address] [facility] [place] [address] Care Team Providers Name Role Phone Anatoliy Jackson MD Primary Care Provider Encounter Details Date Type Department Care Team Description 09/23/2013 [facility] Raheem Ovalles PVD (peripheral Vascular Clinic Santos Kaye MD vascular disease) (H) [address] [place] (Prima ry Dx) [address] [place] [address] [phone] [address] [place], [place] [address] (Wo rk) Social History Tobacco Use Types [...] MD [facility] [address] [place] [id number] (Wo rk) 05/15/2022 Surgery Surgery Neo Torres MD BLEPHAROPLASTY BILATERAL [place] [facility] UPPER L IDS, INTERNAL & SURGEONS PA PTOSIS REPAIR BILATERAL [address] [place] [id number] (Wo rk) 06/25/2022 Ancillary Procedure Cardiology Kirk Silver MD [address] [place] [address] (Wo rk) Scheduled Procedures Name Priority Associated [...] ptosis documented in this encounter Care Teams Community Facilitator Relationship Specialty Start Date End Date Anatoliy Jackson MD PCP - General 05/14/12 documented as of this encounter
--- OUTSIDE RECORDS SUMMARY | 2022-05-02 12:42 | XMS_ITS | Encounter Summary ---
:1950 Author Organization [place] Address [address] [facility] [place] [address] Care Team Providers Name Role Phone Anatoliy Jackson MD Primary Care Provider Reason for Visit (Routine) - Closed Specialty Diagnoses / Procedures Referred By Contact Refer red To Contact Cardiology Diagnoses US RENAL ARTERY STENOSIS Procedure Notes: benign essential hypertension Zz Sh Cardiology Img Procedures RADIOLOGY [address] [place] [address] Phone: Referral ID Status Reason Start Date Expiration Date Visits Requ ested Visits Authorized [id number] Closed 08/23/2012 08/23/2013 1 1 Encounter Details Date Type Department Care Team Description 09/03/2012 Hospital [place] [address] [address] Radiology - [facility] Heart Raheem Ovalles MD [facility] VASCULAR [facility]IC [address] [place] [address] Imaging [address] [...] PA [address] [place] [address] (Wo rk) 05/15/2022 Surgery Surgery Neo Torres MD BLEPHAROPLASTY BILATERAL [place] [facility] UPPER L IDS, INTERNAL & SURGEONS PA PTOSIS REPAIR BILATERAL [address] [place], [place] [phone] (Wo rk) 06/25/2022 Ancillary Procedure Cardiology Kirk Silver MD [address] [place] [id number] (Wo rk) Scheduled Procedures Name Priority Associated [...] on filedocumented in this encounter Care Teams Pen Tender Relationship Specialty Start Date End Date Anatoliy Jackson MD PCP - General 05/14/12 documented as of this encounter
--- OUTSIDE RECORDS SUMMARY | 2022-05-02 12:42 | XMS_ITS | Encounter Summary ---
:1950 Author Organization [place] Address [address] [facility] [place] [address] Care Team Providers Name Role Phone Anatoliy Jackson MD Primary Care Provider Encounter Details Date Type Department Care Team Description 07/13/2013 Hospital Encounter [facility] YordyHyacinth tapia Status post [facility] DO Kiara coronary angiogram [address] (Primary Dx) [address] [place] [phone] Social History Tobacco Use Types Packs/Day Years Used Date Never Smoker Alcohol Use Standard Drinks/Week Comments Yes 0 (1 standard drink = 0.6 oz pure alcoho l) occasionally Sex Assigned at Date Recorded Male 03/12/2021 12:11 PM CDT documented as of this encounter Last Filed Vital Signs Vital Sign Reading Time Taken Comments Blood Pressure 118/60 07/13/2013 2:00 PM YOUTH DEVELOPMENT SPECIALIST Pulse 54 07/13/2013 2:00 PM YOUTH DEVELOPMENT SPECIALIST Temperature 36.5 ??C (97.7 ??F) 07/13/2013 6:55 AM YOUTH DEVELOPMENT SPECIALIST Respiratory Rate 16 07/13/2013 12:15 PM YOUTH DEVELOPMENT SPECIALIST Oxygen Saturation 97% 07/13/2013 2:00 PM YOUTH DEVELOPMENT SPECIALIST Inhaled Oxygen Concentration - - Weight 98.6 kg (217 lb 4.8 oz) 07/13/2013 6:55 AM YOUTH DEVELOPMENT SPECIALIST Height 180.3 cm (5' 11) 07/13/2013 6:55 AM YOUTH DEVELOPMENT SPECIALIST Body Mass Index 30.31 07/13/2013 6:55 AM YOUTH DEVELOPMENT SPECIALIST documented in this encounter Discharge Instructions Discharge InstructionsHallie Sher RN - 07/13/2013 1:47 PM CST Images from the original note were not included. Interventional Cardiology Discharge Instructions Post Angiogram (Cardiac) AFTER YOU GO HOME: ?? DO NOT drive or operate machinery at home or at work for at least 24 hours ?? If you were given sedation: we recommend that an adult stay with you for 24 hours ?? DO relax and take it easy for 24 hours ?? DO drink plenty of fluids ?? DO resume your regular diet, unless otherwise instructed by your Primary Physician ?? DO NOT drink alcoholic beverages the day of your procedure ?? DO NOT do any strenuous exercise or lifting (>10 lbs) for at least 3-5 days following your procedure ?? DO NOT take a tub bath, get in a hot tub, or pool for at least 2 days following your procedure ?? Do Not scrub the procedure site vigorously ?? DO NOT make any important or legal decisions for 24 hours following your procedure CALL YOUR PRIMARY PHYSICIAN IF: ?? You start bleeding from the procedure site. If you do start to bleed from that site, lie down flat and hold pressure on the site. Your physician will tell you if you need to return to the hospital. It is common to have a small bruise or lump at the site ?? You have numbness, coolness or change in color of the arm of the puncture site ?? You experience pain or redness at the puncture site ?? You develop hives or a rash or unexplained itching ?? You develop a temperature of 101 degrees F or greater ADDITIONAL INSTRUCTIONS ?? Support the puncture site for movement ?? 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 Patient/Significant Other's Signature Relationship Nurse's Signature 07/13/2013 H DEVELOPMENT SPECIALIST documented in this encounter Medications at Time [...] documented as of this encounter Progress Notes Hallie Sher RN - 07/13/2013 2:41 PM CST Patient and instructed in post procedure care to which they verbalize understanding. Also encouraged extra po water for flushing dye through kidneys, emphasized care of right arm and gave detailedexplanation of care should re- bleed occur. PIV removed and clean dressing applied. Medications throughly explained, all care questions answered. DC'd via wheelchair to hospital door. H DEVELOPMENT SPECIALIST documented in this encounter H&P Notes Sherie Provider - 07/12/2013 12:14 PM CST H DEVELOPMENT SPECIALIST documented in this encounter Procedure Notes Peter Aguiar MD - 07/13/2013 11:20 AM CST 1-moderate 2 vessel coronary artery disease. No culprit hemodynamically severe lesions. -60% right PDA lesion. FFR equaled 0.84 -50-60% distal circumflex lesion. FFR equaled 0.87 -50-60% OM 2 lesion. FFR equaled 0.92. 2-left ventricular ejection fraction 60-65% without regional wall motion abnormality. Left ventricular pressure 126/11. No precocity aortic valve. H DEVELOPMENT SPECIALIST documented in this encounter Plan of Treatment Upcoming Encounters Date Type Specialty Care Team Description 05/15/2022 Hospital Encounter Surgery Singh Trores MD [facility] [address] [place] [phone] (Wo rk) 05/15/2022 Surgery Surgery Neo Torres MD BLEPHAROPLASTY BILATERAL [facility] PTOSIS REPAIR BILATERAL [address] [place] [phone] (Wo rk) 06/25/2022 Ancillary Procedure Cardiology Li, Huagui, MD [address] [place] [address] (Wo rk) Scheduled Procedures Name Priority Associated [...] Associated Comments Diagnosis GLUCOSE BY METER Routine 07/13/2013 11:45 Results for this AM YOUTH DEVELOPMENT SPECIALIST procedure are i n the results section. EKG 12-LEAD, TRACING STAT 07/13/2013 7:27 AM R esults for this ONLY YOUTH DEVELOPMENT SPECIALIST procedure are i n the results section. INR STAT 07/13/2013 7:25 AM Results f or this YOUTH DEVELOPMENT SPECIALIST procedure are i n the results section. PARTIAL THROMBOPLASTIN STAT 07/13/2013 7:25 AM Results for this TIME YOUTH DEVELOPMENT SPECIALIST procedure are i n the results section. LIPID REFLEX TO DIRECT STAT 07/13/2013 7:25 AM Results for this LDL PANEL YOUTH DEVELOPMENT SPECIALIST procedure are i n the results section. BASIC METABOLIC PANEL STAT 07/13/2013 7:25 AM Results for this YOUTH DEVELOPMENT SPECIALIST procedure are i n the results section. CBC WITH PLATELETS STAT 07/13/2013 7:25 AM Res ults for this YOUTH DEVELOPMENT SPECIALIST procedure are i n the results section. HIM PROCEDURE SCAN Routine 07/13/2013 documented in this encounter Results (ABNORMAL) Glucose by meter (07/13/2013 11:45 AM YOUTH DEVELOPMENT SPECIALIST) P athologist Signature Glucose 319 (H) 60 - 99 POINT OF CARE mg/dL TEST, GLUCOSE Specimen Anatomical Collection Method Collection Time Receive d Time (Source) Location / / Volume Laterality 07/13/2013 11:45 07/13/2013 AM YOUTH DEVELOPMENT SPECIALIST 11:51 AM YOUTH DEVELOPMENT SPECIALIST [facility] Performing Organization Address City/State/ZIP Code Phon e Number FV POINT OF CARE TEST, GLUCOSE POINT OF CARE TEST, GLUCOSE EKG 12-lead, tracing only (07/13/2013 7:27 AM YOUTH DEVELOPMENT SPECIALIST) Patholo gist Method Time Signature Interpretation ECG Click View RADIOLOGY Image link RESULTS to view waveform and result Specimen (Source) Anatomical Collection Method Collection Time Re ceived Time Location / / Volume Laterality 07/13/2013 7:27 AM YOUTH DEVELOPMENT SPECIALIST Hyaicnthmyles Plummer DO ECG ORDERABLES Performing Organization Address City/State/ZIP Code Phon e Number RADIOLOGY RESULTS Partial thromboplastin time (07/13/2013 7:25 AM YOUTH DEVELOPMENT SPECIALIST) athologist Signature PTT 26 22 - 37 sec [facility] Specimen Anatomical Collection Method Collection Time Receive d Time (Source) Location / / Volume Laterality Blood specimen 07/13/2013 7:25 AM 013 7:41 (specimen) YOUTH DEVELOPMENT SPECIALIST AM YOUTH DEVELOPMENT SPECIALIST Hyacinth Kiara Elian DO LAB - BLOOD ORDERABLES Performing Organization Address City/[facility]/ZIP [facility] Phon e Number [facility] [address] [place] [address] [phone] [facility] LAB (ABNORMAL) Lipid panel reflex to direct LDL (07/13/2013 7:25 AM YOUTH DEVELOPMENT SPECIALIST) athologist Signature Cholesterol 167 0 - 200 [place] mg/dL [facility] Comment: LDL Cholesterol is the primary guide to therapy. The NCEP recommends further evaluation of: patients with cholesterol greater than 200 mg/dL if additional risk facto rs are present, cholesterol greater than 240 mg/dL, triglycerides greater than 1 50 mg/dL, or HDL less than 40 mg/dL. Triglycerides 231 (H) 0 - 150 mg/dL [facility] HDL Cholesterol 35 (L) 40 - 110 mg/dL [facility] LDL Cholesterol Calculated 86 0 - 129 mg/dL [facility] Comment: LDL Cholesterol is the primary guide to therapy: LDL-cholesterol goal in high risk patients is <100 mg/dL and in very high risk patients is <70 mg/dL. VLDL-Cholesterol 46 (H) 0 - 30 mg/dL [facility] Cholesterol/HDL Ratio 4.8 0.0 - 5.0 [facility] Specimen Anatomical Collection Method Collection Time Receive d Time (Source) Location / / Volume Laterality Blood specimen 07/13/2013 7:25 AM 013 7:41 (specimen) YOUTH DEVELOPMENT SPECIALIST AM YOUTH DEVELOPMENT SPECIALIST Hyacinth Plummer DO LAB - BLOOD ORDERABLES Performing Organization Address City/State/ZIP Code Phon e Number [facility] [address] [place] [phone] [address] [facility] LAB INR (07/13/2013 7:25 AM YOUTH DEVELOPMENT SPECIALIST) P athologist Signature INR 1.00 0.86 - 1.14 [facility] Specimen Anatomical Collection Method Collection Time Receive d Time (Source) Location / / Volume Laterality Blood specimen 07/13/2013 7:25 AM 013 7:41 (specimen) YOUTH DEVELOPMENT SPECIALIST AM YOUTH DEVELOPMENT SPECIALIST Hyacinth Plummer DO LAB - BLOOD ORDERABLES Performing Organization Address City/State/ZIP Code Phon e Number [facility] [address] [place] [address] [place] [address] LAB (ABNORMAL) CBC with platelets (07/13/2013 7:25 AM YOUTH DEVELOPMENT SPECIALIST) Analysis Performed At Patho logist Time Signature WBC 9.0 4.0 - 11.0 [place] 10e9/L [facility] RBC Count 4.42 4.4 - 5.9 [place] 10e12/L [facility] Hemoglobin 12.6 (L) 13.3 - [place] 17.7 g/dL [facility] Hematocrit 36.9 (L) 40.0 - [place] 53.0 % [facility] MCV 84 78 - 100 [facility] MCH 28.5 26.5 - [place] 33.[address] [facility] MCHC 34.1 31.5 - [place] 36.5 g/dL [facility] RDW 12.5 10.0 - [place] 15.0 % [facility] Platelet Count 177 150 - 450 [place] 10e9/L [facility] Specimen Anatomical Collection Method Collection Time Receive d Time (Source) Location / / Volume Laterality Blood specimen 07/13/2013 7:25 AM 013 7:41 (specimen) YOUTH DEVELOPMENT SPECIALIST AM YOUTH DEVELOPMENT SPECIALIST Hyacinth Plummer DO LAB - BLOOD ORDERABLES Performing Organization Address City/State/ZIP Code Phon e Number Konstantin [facility] [address] [place] [address] [facility] LAB (ABNORMAL) Basic metabolic panel (07/13/2013 7:25 AM YOUTH DEVELOPMENT SPECIALIST) Analysis Performed At Patho logist Time Signature Sodium 136 133 - 144 [place] mmol/L [facility] Potassium 4.6 3.4 - 5.3 [place] mmol/L [facility] Chloride 103 94 - 109 [place] mmol/L [facility] Carbon Dioxide 28 20 - 32 [place] mmol/L [facility] Anion Gap 5 (L) 6 - 17 [place] mmol/L [facility] Glucose 349 (H) 60 - 99 [place] mg/dL [facility] Urea Nitrogen 43 (H) 7 - 30 [place] mg/dL [facility] Creatinine 1.30 (H) 0.66 [facility] 1.25 mg/dL [facility] GFR Estimate 56 (L) >60 [place] mL/min/1.[address] LAB GFR Estimate If 67 >60 [place] Black mL/min/1.[address] LAB Calcium 9.1 8.5 - 10.4 [place] mg/dL [facility] Specimen Anatomical Collection Method Collection Time Receive d Time (Source) Location / / Volume Laterality Blood specimen 07/13/2013 7:25 AM 013 7:41 (specimen) YOUTH DEVELOPMENT SPECIALIST AM YOUTH DEVELOPMENT SPECIALIST Hyacinth Plummer DO LAB - BLOOD ORDERABLES Performing Organization Address City/State/ZIP Code Phon e Simon Pryor [facility] [address] [place] [address] [facility] Cardiac Cath report - HIM Procedure Scan (07/13/2013) Narrative This result has an attachment that is no t available. 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 Allergic) if not already given today in ED for patients arriving on day of cardiac lab instructor procedure., Cardiac Pre-procedure fentaNYL (SUBLIMAZE) injection 25-50 mcg Given 07/13/2013 10:32 AM YOUTH DEVELOPMENT SPECIALIST 50 mcg 25-50 mcg, Intravenous, EVERY 2 MIN PRN, moderate to severe pain, other, when verbally ordered by prescriber during the procedure., Starting on Thu07/13/13 at 1024, Doses can be exceeded under direct oversight of the patient by physician., Cardiac Intra-procedure heparin (porcine) injection Given 07/13/2013 10:58 AM YOUTH DEVELOPMENT SPECIALIST 1,000 Units 1,000-10,000 Units 1,000-10,000 Units, Intravenous, EVERY 5 MIN PRN, other, bolus dose, Starting on Thu07/13/13 at 1024, when verbally ordered by prescriber during procedure. Up to a max of 25,000 units. Physician may request an additional bolus., Cardiac Intra-procedure Given 07/13/2013 10:35 AM YOUTH DEVELOPMENT SPECIALIST 2,500 Units midazolam (VERSED) injection 0.5-2 mg Given 07/13/2013 10:32 AM YOUTH DEVELOPMENT SPECIALIST 1 mg 0.5-2 mg, Intravenous, EVERY 2 MIN PRN, other, when verbally ordered by prescriber during the procedure., Starting on Thu07/13/13 at 1024, Doses can be exceeded under direct oversight of the patient by physician., Cardiac Intra-procedure documented in this encounter Active and Recently Administered Medications Times are shown in YOUTH DEVELOPMENT SPECIALIST. Scheduled Medication Order 07/11/2013 07/12/2013 07/13/2013 aspirin EC tablet 325 mg (CANCELED) 0847 (Given - Provider: Hallie Sher RN) 325 mg, Oral, DAILY, First dose on Thu09/13/12 at 0900, Including day before and day of cardiac lab instructor procedure (except if pt. Allergic) if not already given today in ED for patients arriving on day of cardiac lab instructor procedure., Cardiac Pre-procedure PRN Medication Order 07/11/2013 07/12/2013 07/13/2013 fentaNYL (SUBLIMAZE) injection 25-50 mcg (CANCELED) 1032 (Given - Provider: Saumya Nichols RN) 25-50 mcg, Intravenous, EVERY 2 MIN PRN, Starting 07/13/13 at 1024, moderate to severe pain, other, when verbally ordered by prescriber during the procedure., Doses can be exceeded under direct overs ight of the patient by physician., Cardiac Intra-procedure heparin (porcine) injection 1,000-10,000 Units (CANCELED) 1035 (Given - Provider: Saumya Nichols RN)1058 (Given - Provider: Saumya Nichols RN) 1,000-10,000 Units, Intravenous, EVERY 5 MIN PRN, other, bolus dose, Starting 07/13/13 at 1024, when verbally ordered by prescriber during procedure. Up to a max of 25,000 units. Physician may request an additional bolus., Cardiac Intra-procedure midazolam (VERSED) injection 0.5-2 mg (CANCELED) 1032 (Given - Provider: Saumya Nichols RN) 0.5-2 mg, Intravenous, EVERY 2 MIN PRN, Starting 07/13/13 at 1024, other, when verbally ordered by prescriber during the procedure., Doses can be exceeded under direct oversight of the patient by physician., Cardiac Intra-procedure documented in this encounter Care Teams Biological Photographer Relationship Specialty Start Date End Date Anatoliy Jackson MD PCP - General 05/14/12 documented as of this encounter
--- OUTSIDE RECORDS SUMMARY | 2022-05-02 12:42 | XMS_ITS | Encounter Summary ---
:1950 Author Organization [place] Address [address] [place] [address] Care Team Providers Name Role Phone Anatoliy Jackson MD Primary Care Provider Heath More MD Unavailable Peter Gipson MD Unavailable Encounter Details Date Type Department Care Team Description 07/13/2013 Historic Results [facility] Heart Unknown, [facility] ider Clinic [address] [place] [phone] Social History [...] [address] [place] [id number] (Wo rk) 05/15/2022 Surgery Surgery Neo Torres MD BLEPHAROPLASTY BILATERAL [facility], [facility] & SURGE[facility] PTOSIS REPAIR BILATERAL [address] [place] [address] (Wo rk) 06/25/2022 Ancillary Procedure Cardiology Kirk Silver MD [address] [place] [address] (Wo rk) Scheduled Procedures Name Priority Associated [...] Name Priority Date/Time Associated Diagnosis Comme nts CARDIAC CATH - HIM SCAN 07/13/2013 12:00 AM DATA MODELER - ARCHIVE documented in this encounter Results CARDIAC CATH - HIM SCAN - ARCHIVE (07/13/2013 12:00 AM DATA MODELER) Specimen (Source) Anatomical Location Collection Method / Collectio n Time Received Time / Laterality Volume 07/13/2013 Narrative This result has an attachment that is no t available. Provider Scan CV ELECTROPHYSIOLOGY ORDERAB LES documented in this encounter Visit Diagnoses Not on filedocumented in this encounter Care Teams Silo Erector Relationship Specialty Start Date End Date Anatoliy Jackson MD PCP - General 05/14/12 Heath More PCP - Internal Medicine INTERNAL MEDICINE - 01/06/14 MD Andreas ENDOCRINOLOGY, [facility] [address] [place] [phone] Peter Gipson PCP - Urology 04/02/15 MD Jordan [facility] [address] [place] [address] [address] [place], [place] [id number] documented as of this encounter
--- OUTSIDE RECORDS SUMMARY | 2022-05-02 12:43 | XMS_ITS | Encounter Summary ---
:1950 Author Organization [place] Address [address] [facility] [place] [address] Care Team Providers Name Role Phone Roberto Linder MD Primary Care Provider Encounter Details Date Type Department Care Team Description 01/22/2011 Results Only [facility] Heath More, Hospital Results MD ENDOCRINE CLINIC [facility] [address] [place] [address] (Wo rk) Social History Tobacco Use Types [...] [address] [place] [address] (Wo rk) 05/15/2022 Surgery Surgery Neo Torres MD BLEPHAROPLASTY BILATERAL [place] [facility] U[facility]S, INTERNAL & SURGEONS [place] PTOSIS REPAIR BILATERAL [address] [place] [address] (Wo rk) 06/25/2022 Ancillary Procedure Cardiology Kirk Silver MD [address] [place] [address] (Wo rk) Scheduled Procedures Name Priority Associated [...] Diagnosis Comme nts NM MPI TREADMILL Routine 01/22/2011 1:59 PM Resul ts for this CDT procedure are i n the results section. STRESS ADENOSINE Routine 01/22/2011 12:52 PM Resu lts for this CDT procedure are i n the results section. US RY DOPPLER WITH Routine 01/22/2011 11:56 AM R esults for this EXERCISE BILATERAL CDT procedure are in the results section. documented in this encounter Results NM Mpi multi rest stress (01/22/2011 1:59 PM CDT) Specimen (Source) Anatomical Collection Method Collection Time Re ceived Time Location / / Volume Laterality 01/22/2011 1:59 PM CDT Impressions RADIOLOGY RESULTS - 01/27/2011 2:56 PM C DT NIKITA ANDERSON ? GATED MYOCARDIAL PERFUSION SCINTIGRAPHY WITH INTRAVENOUS PHARMACOLOGIC VASODILATATION Done on 01/22/2011. ??Nikita Anderson is a 60-year-old male. ??: ?? 1950. ?? INDICATION: ??Assessment of myocardial p erfusion in a patient with a history of shortness of breath on exerti on. ??Indication for pharmacologic stress testing was shortne ss of breath on exertion. ? IMPRESSION: I. ??Adenosine Test 1. ??Adenosine infusion dictated under s eparate cover. 2. ??ECG report done under separate cove r. ?? II. Myocardial Perfusion Scintigraphy 1. ??Myocardial perfusion using single i sotope technique demonstrated mild reversible inferior defect that cou ld represent mild ischemia. ?? The presence of bowel uptake artifact de creases the specificity of this finding. ?? 2. ??Gating demonstrated a mildly dilate d left ventricle with left ventricular end-diastolic volume of 180 mL post stress. ?? 3. ??The ejection fraction was 50%. ??No regional wall motion abnormality is noted. ?? 4. ??No previous study was available for comparison. ? RESTING TOMOGRAPHY: ??Following the inje ction of 10.9 mCi of technetium 99m sestamibi intravenously, gamma camera imaging was performed using 180* SPECT technique. ?? INTRAVENOUS ADENOSINE MONITORING PERIOD: ??Done under separate cover. ?? At two minutes into the infusion, the pa tient was injected with 33 mCi technetium 99m sestamibi intravenous ly. ?? ECG report done under separate cover. ? Gamma camera imaging was performed later using 180* SPECT technique. ?? TOMOGRAPHIC RESULTS: ??On the stress genesis ges, mild count reduction is noted in the mid and basal inferior port ion of the left ventricle. ?? On the rest images, this area perfuses w ell. ??There is evidence of significant bowel uptake artifact on str ess images could contribute to the inferior count reduction on the s tress images. ??Gating demonstrated a dilated left ventricle wi th low normal ejection fraction of 50%. ?? COMMENT: ??Given the abnormal myocardial perfusion, I would suggest cardiology consultation on this patient, if clinically appropriate. ?? cc: ??Andreas More MD ?? J Andreas More MD IMG NM ORDERABLES Performing Organization Address City/State/ZIP Code Phon e Number RADIOLOGY RESULTS CARD Adenosine stress test (01/22/2011 12:52 PM CDT) Component Value Ref Test Analysis Performed At [facility] Range Method Time Signature IMAGECAST RADIOLOGY RESULT NIKITA ANDERSON RESULTS ? WALKING ADENOSINE NUCLEAR STRESS TEST ?? INDICATION FOR STUDY: ??Shortness of breath with exertion. ?? PROCEDURE: ??The patient underwent a walking adenosine nucle ar stress test per protocol. ??Resting heart rate was 47 beats per min [place] with a blood pressure of 138/80. ??Resting electrocardiogram showed a sinus bradycardia. ??The precordial leads were normal with isoelec tric ST segments and upright T waves. ??In the inferior leads, there were inverted T waves into in III and aVF. ??Small insignificant Q-waves were seen in the same leads. ?? With walking and adenosine, the patient described no chest p ain, although he developed some shortness of breath and heaviness in his leg. ??Heart rate sanchez to a peak of 73, blood pressure dropp ed to a low of 124/70. ??Electrocardiogram showed no changes over [facility], although there was one intercalated PVC recorded on the supp lied strips. ?? CONCLUSIONS: 1. ??Well-tolerated walking adenosine nuclear stress test. 2. ??Nuclear imaging pending at the time of this dictation. ??The results will be forthcoming on a separate dictation. Specimen (Source) Anatomical Collection Method Collection Time Re ceived Time Location / / Volume Laterality 01/22/2011 12:52 PM CDT J Andreas More MD CV CARDIAC SERVICES ORDERABL ES Performing Organization Address City/State/ZIP Code Phon e Number RADIOLOGY RESULTS US RY doppler with exercise (01/22/2011 11:56 AM CDT) Specimen (Source) Anatomical Collection Method Collection Time Re ceived Time Location / / Volume Laterality 01/22/2011 11:56 AM CDT Impressions RADIOLOGY RESULTS - 01/22/2011 4:44 PM C DT ULTRASOUND ANKLE-BRACHIAL INDEX WITH EXE RCISE ??Jan 22, 2011 11:56 AM CLINICAL INFORMATION: Leg pain. Possible claudication. COMPARISON: None. FINDINGS: Resting RY in the right lower extremity is 1.1 and 1.31 in the left lower extremity. Distal wavefor ms are triphasic. Patient exercised for 5 minutes on a treadmill a t 1.5 mph and 10% grade. No symptoms reported. Post exercise RY leland ues are 1.11 on the right and 1.14 on the left. IMPRESSION: 1. Normal RY evaluation in the right lo wer extremity. 2. Near normal RY evaluation in the lef t lower extremity. Trace decrease in post exercise RY values in the left lower extremity may suggest minimal degree of arterial insuf ficiency, though remaining exam is normal in the left lower extremi ty. Heath More MD IMG US ORDERABLES Performing Organization Address City/State/ZIP Code Phon e Number RADIOLOGY RESULTS documented in this encounter Visit Diagnoses Not on filedocumented in this encounter Care Teams Artist Scientific Relationship Specialty Start Date End Date Roberto Linder MD PCP - General 12/29/02 08/20/11 [address] [facility] [address] [place], [place] [id number] documented as of this encounter
--- OUTSIDE RECORDS SUMMARY | 2022-05-02 12:43 | XMS_ITS | Encounter Summary ---
:1950 Author Organization [place] Address [address] [facility] [place] [address] Care Team Providers Name Role Phone Roberto Linder MD Primary Care Provider [facility] [place] Primary Care Provider [phone] Anatoliy Jackson MD Primary Care Provider Heath More MD Unavailable Peter Gipson MD Unavailable Encounter Details Date Type Department Care Team Description 01/22/2011 Historic Results [facility] Heart Unknown, [place] [id number] [facility] [address] [place] [address] Social History [...] MD [facility] [address] [facility] [address] [place] [address] (Wo rk) 05/15/2022 Surgery Surgery Neo Torres MD BLEPHAROPLASTY BILATERAL [place] [facility], INTERNAL & SURGEONS [place] PTOSIS REPAIR BILATERAL [address] [place] [id number] (Wo rk) 06/25/2022 Ancillary Procedure Cardiology Kirk Silver MD [address] [place] [address] (Wo rk) Scheduled Procedures Name Priority Associated [...] Comme nts US VASCULAR - HIM SCAN 01/22/2011 12:00 AM CDT - ARCHIVE documented in this encounter Results US VASCULAR - HIM SCAN - ARCHIVE (01/22/2011 12:00 AM CDT) Specimen (Source) Anatomical Location Collection Method / Collectio n Time Received Time / Laterality Volume 01/22/2011 Narrative This result has an attachment that is no t available. Provider Scan IMG US ORDERABLES documented in this encounter Visit Diagnoses Not on filedocumented in this encounter Care Teams Band Sawmill Operator Relationship Specialty Start Date End Date Roberto Linder MD PCP - General 12/29/02 08/20/[address] [place] [address] [facility]ar Siddiqi PCP - General 08/21/11 05/13/12 [place] [address] [place] [address] Anatoliy Jackson MD PCP - General 05/14/12 Heath More, PCP - Internal Medicine INTERNAL MEDICINE - ENDOCRINOLOGY, [facility] [address] [facility] [address] [place] [phone] Peter Gipson, PCP - Urology 04/02/15 [facility] [address] [place] [id number] documented as of this encounter
--- OUTSIDE RECORDS SUMMARY | 2022-05-02 12:43 | XMS_ITS | Encounter Summary ---
:1950 Author Organization [place] Address [address] [place] [address] Care Team Providers Name Role Phone Roberto Linder MD Primary Care Provider Encounter Details Date Type Department Care Team Description 08/14/2009 Abstract M [facility] Abstract, Provider LAB RESULTS FROM [facility] [place] ENDOCRINOLOGY [address] [place] [address] Social History Tobacco Use Types [...] [address] [place] [id number] (Wo rk) 05/15/2022 Surgery Surgery Neo oTrres MD BLEPHAROPLASTY BILATERAL [place] [facility], INTERNAL & SURGEONS PA PTOSIS REPAIR BILATERAL [address] [place] [id number] (Wo rk) 06/25/2022 Ancillary Procedure Cardiology Kirk Silver MD [address] [place] [address] (Wo rk) Scheduled Procedures Name Priority Associated [...] Name Priority Date/Time Associated Diagnosis Comme nts HCL GLYCATED Routine 08/14/2009 DIAGNOSIS NOT YET Results fo r this HEMOGLOBIN DEFINED procedure are i n the results section . 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
--- OUTSIDE RECORDS SUMMARY | 2022-05-02 12:43 | XMS_ITS | Encounter Summary ---
:1950 Author Organization [place] Address [address] [facility] [place] [address] Care Team Providers Name Role Phone Clinic, [facility] Primary Care Provider [phone] Anatoliy Jackson MD Primary Care Provider Heath Tate MD Unavailable Peter Gipson MD Unavailable Peter Aguiar MD Unavailable Peter Mcmullen MD Unavailable Fidencio Solis MD Unavailable Hallie Maldonado LEAD ACCOUNTANT PREASSEMBLER AND INSPECTOR Unavailable [phone] Giuliana Gomez APRN PREASSEMBLER AND INSPECTOR Unavailable [phone] Fidencio Solis MD Unavailable Giuliana Gomez APRN PREASSEMBLER AND INSPECTOR Unavailable [phone] Giuliana Gomez APRN PREASSEMBLER AND INSPECTOR Unavailable [phone] Fidencio Solis MD Unavailable Encounter Details Date Type Department Care Team Description 10/01/2011 Office Visit-[facility] [place] Kaye MD [address] [facility] [address] VASCULAR CLINIC [place] [address] [address] [facility] [phone] [address] [place] [address] (Wo rk) Social History Tobacco Use Types Packs/Day Years Used Date Never Smoker Alcohol Use Standard Drinks/Week Comments Yes 0 (1 standard drink = 0.6 oz pure alcoho l) occasionally Sex Assigned at Date Recorded Male 03/12/2021 12:11 PM CDT documented as of this encounter Progress Notes Raheem Ovalles MD - 10/02/2011 4:15 PM CST Vascular Diagnostic Clinic Note Created by: Raheem Ovalles M.D. DATE: 10/01/2011 NIKITA ANDERSON DATE OF : 1950 AGE: [age] years old ACCOUNT: [id number] Referring Physician: WARREN TATE Referring Clinic: ENDOCRINOLOGY CLINIC/[facility] CURRENT DIAGNOSES 1. Diabetes Mellitus-Insulin Dependent, 250.00 2. Hyperlipidemia-mixed disorder, 272.4 3. - Claudication-intermittent, 443.9 4. - Shortness of Breath, 786.05 5. HYPERTENSIVE HEART DISEASE UNSPECIFIED, 402.9 ALLERGIES Procaine HCl, procaine, Heart racing MEDICATIONS (prior to changes made today) 1. aspirin, buffered 81 mg Tablet, 1 p.o. daily 2. cilostazol 50 mg Tablet, 1 dose by mouth twice each day 3. clonidine 0.1 mg Tablet, 1 po twice daily 4. gabapentin 300 mg Capsule, 1-2 tab daily PRN 5. Humalog 100 unit/mL Solution, as directed 6. Lantus 100 unit/mL Solution, Take as Directed 7. lisinopril-hydrochlorothiazide 20-12.5 mg Tablet, 1 p.o. twice daily 8. Lovaza 1 gram Capsule, 1 p.o. twice daily 9. metoprolol succinate 50 mg Tablet Sustained Release 24 hr, 1 p.o. twice daily 10. nitroglycerin 0.4 mg Tablet, Sublingual, Take as Directed 11. simvastatin 40 mg Tablet, 1 p.o. qAM 12. testosterone 1 %(50 mg/5 gram) Gel in Packet, 1 ml injection bi weekly CHIEF COMPLAINTS Return Vascular Visit HISTORY OF PRESENT ILLNESS Mr. Anderson, a 60-year-old gentleman, was evaluated in the vascular diagnostic clinic for intermittent claudication and hypertension. Mr. Anderson has experienced aching discomfort in both calves provoked by walking in particular walking outdoors 1/4 mile provokes his bilateral claudication primarily af fecting his left lower extremity when he begins to walk up hill outside his home. With rest his claudication does promptly resolve. Physiologic testing in January of 2011 did demonstrate an abnormal response to exercise with a decrease in the systolic pressure at the ankle in his left lower extremity provoked by treadmill walking. On exam, he presents as an alert, active gentleman. He does appear comfortable at rest and while up walking in the office. The blood pressure is 134/58 in his right arm and 130/54 in his right arm. No significant differential in blood pressure is observed to indicate unilateral subclavian artery stenosis. His pulse rate is 56. He weighs 222 pounds. His BMI is 31. The breath sounds are normal. No pulmonary rales, wheezes or rhonchi are heard. The inspiratory effort at rest is unlabored. No chest walltenderness is present. The cardiac impulse is felt in the midclavicular line. The first and second heart sounds are normal at the apex. No murmurs, rubs or gallops are heard. The rhythm is regular and the rate is normal. The carotid upstrokes are normal no carotid artery bruits are heard. The venous column in his neck does not appear distended. The posterior tibial pulses are palpable although diminished in both lower extremities. He does appear alert and oriented. He displays normal judgment and insight. I did review his aortoiliac duplex ultrasound study. No aneurysm of the abdominal aorta or the iliacarteries was observed. Diffuse atherosclerotic plaque was observed in the abdominal aorta and iliac arterial system, however the flow velocities were within the usual range indicating no significant focal stenosis. I also reviewed his bilateral lower extremity duplex ultrasound study. Again diffuse atheroscleroticplaque was observed in the arteries of his lower extremities. However, the flow velocities remained within the usual range. No significant focal narrowing was observed. The ankle-brachial indices were normal at rest. 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, ED, decreased libido, mild nonproliferative retinopathy, hyperlipidemia Past Cardiac Illnesses: claudication Cardiology Procedures-NonInvasive: stress echo Oct 2004, stress echo Jan 2008, myocardial perfusion (Nuc) Jan 2011 Vascular Procedures-Noninvasive: RY-Exercise Jan 2011, 08/21 bilateral LE arterial duplex and aortoiliac duplex Peripheral Vasc Procedure Results: 01/18 ABIs-normal RY RLE, near normal RY LLE (trace decrease in post exercise RY in LLE), 08/21 RY rest: right=1.12, left=1.10, no significant obstructive PAD or aortoiliac disease PMHx Stress Echo Results: 10/12-normal, 01/15-normal, <GT>[address] depression inf and lat leads with exercise Left Ventricular Ejection Fraction: EF normal by stress echo 10/12, EF <GT>70% by stress echo 01/15, EF 50% by Nuclear study 01/18 Nuclear Results: 01/18 mild inferior ischemia EF normal by stress echo 10/12, EF <GT>70% by stress echo 01/15, EF 50% by Nuclear study 01/18 FAMILY HISTORY: CARDIAC RISK FACTORS Tobacco Abuse: negative; Family History of Heart Disease: negative; Hyperlipidemia: positive; Hypertension: positive; Diabetes Mellitus: insulin dependent; Prior History of Heart Disease: negative; Obesity:BMI<GT>25 (Over weight); Sedentary Life Style:negative; Age:positive ; LDL Goal <LT>100 SOCIAL HISTORY Alcohol Use - drinks rarely; Smoking - never smoked; Diet - caffeine use-3-4 per day, low fat Diet and less salt; Lifestyle - ; Exercise - no regular exercise; Residence - lives in [place] year round; Place of - [place]; REVIEW OF SYSTEMS GENERAL denies recent weight loss, weight gain, fever or chills or change in exercise tolerance. INTEGUMENTARY denies any change in hair or nails, rashes, or skin lesions. EYES denies diplopia, history of glaucoma or visual field defects. EARS, NOSE, THROAT, MOUTH denies any hearing loss, epistaxis, hoarseness or difficulty speaking. RESPIRATORY has noticed more SOB with everyday activites CARDIOVASCULAR negative for palpitations, chest pain, orthopnea, PND, peripheral edema, syncope or claudication. ABDOMINAL denies ulcer disease, hematochezia or melena. MUSCULOSKELETAL arthritis of the wrist(s) hand(s) NEUROLOGICAL diabetic seizure PSYCHIATRIC denies any history of depression, substance abuse or change in cognitive functions. ENDOCRINE insulin dependent diabetes mellitus HEMATOLOGICAL/IMMUNOLOGIC denies any food allergies, seasonal allergies, bleeding disorders. VASCULAR Claudication PHYSICAL EXAMINATION VITAL SIGNS: Blood Pressure: 130/54Sitting, Left arm, large cuff 134/58Sitting, Right arm, large cuff Pulse- 56.00/min. Weight- 222.00 lbs. Height- 71 CONSTITUTIONAL cooperative, in no acute distress SKIN [...] place. MEDICATIONS UPDATED/STARTED TODAY: cilostazol 50 mg Tablet, 1 dose by mouth twice each day, 180 clonidine 0.1 mg Tablet, 1 po twice daily, #1 (Not Dispensing) MEDICATIONS REFILLED/STOPPED TODAY: clonidine 0.1 mg Tablet 1 po daily #1 (Not Dispensing) Refill IMPRESSIONS/PLAN In summary, Mr. Anderson is evaluated for the following cardiovascular conditions: 1. Peripheral arterial disease. 2. Intermittent claudication. 3. Hypertension. 4. Chronic kidney disease, stage 3. Mr. Anderson is experiencing intermittent claudication affecting both lower extremities particularly the left lower extremity, which occurs while walking up hill. His duplex ultrasound study has demonstrated diffuse atherosclerotic plaque in the arteries of the lower extremities, however no significantfocal narrowing has developed. As a result I would recommend continued medical management for his peripheral arterial disease. He was enrolled in the vascular diagnostic clinic nurse supervised outpatient walking program. In addition, I would recommend a trial of suloctidil starting at 50 mg twice each day. He will continue his other cardiovascular medications exactly as you have prescribed for him including aspirin, clonidine, lisinopril, HCTZ, Lovaza, metoprolol succinate sustained release and simvastatin. I have encouraged him to review his lipid profile with you to ensure achievement of a target LDL cholesterol level less than 70 and a non-HDL cholesterol level less than 100 if feasible. In view of his hypertension and chronic kidney disease, a renal artery ultrasound exam was ordered specifically to exclude renal artery stenosis. I will review the results with him as soon as they are available. Mr. Anderson will return for a follow-up visit at the vascular diagnostic clinic in six months to assess his response to medical therapy for his intermittent claudication. He will also be seeing Dr. Brendan Plummer in follow-up at [facility] Heart. I have appreciated the opportunity to participate in the care of your patient Mr. Anderson. TODAYS ORDERS 1. Vasc F/U With Dr Charlette M.D. 6 months 2. Renal Artery Doppler 2 weeks Raheem Ovalles M.D. documented in this encounter Plan of Treatment Upcoming Encounters Date Type Specialty Care Team Description 05/15/2022 Hospital Encounter Surgery Singh Torres MD [facility] [address] [place] [address] (Wo rk) 05/15/2022 Surgery Surgery Neo Torres MD BLEPHAROPLASTY BILATERAL [place] [facility], INTERNAL & SURGEONS [facility] PTOSIS REPAIR BILATERAL [address] [place] [phone] (Wo rk) 06/25/2022 Ancillary Procedure Cardiology Kirk Silver MD [address] [place] [phone] (Wo rk) Scheduled Procedures Name Priority Associated [...] on filedocumented in this encounter Care Teams Securities Lending Trader Relationship Specialty Start Date End Date Clinic, [facility] PCP - General 08/21/11 05/13/12 [facility] [address] [place] [address] Anatoliy Jackson MD PCP - General 05/14/12 Heath Tate, PCP - Internal Medicine INTERNAL MEDICINE - ENDOCRINOLOGY, [facility] [address] [place] [phone] Peter Gipson, PCP - Urology 04/02/15 MD [facility] [address] [facility] [address] [place] [address] Peter Aguiar Assigned Heart and 06/01/20 12/15/20 MD [facility] Vascular Provider [address] [place], [place] [address] Peter Mcmullen Assigned 06/01/20 MD [facility] [address] Provider [place], [place] [address] Fidencio Solis MD Assigned Heart and 12/16/20 02/21/[address], Vascular Provider [address] [place] [address] Hallie Maldonado, Assigned Heart and 02/22/2105/18 LEAD ACCOUNTANT PREASSEMBLER AND INSPECTOR Vascular Provider [address] [place] [address] Giuliana Gomez Assigned Heart and 05/19/2106/15/21 A, LEAD ACCOUNTANT PREASSEMBLER AND INSPECTOR Vascular Provider [address] [place], [place] [address] Fidencio Solis MD Assigned Heart and 06/16/21 06/29/[address], Vascular Provider [address] [place] [address] Giuliana Gomez Assigned Heart and 06/30/21 A, LEAD ACCOUNTANT PREASSEMBLER AND INSPECTOR Vascular Provider [address] [place] [address] Giuliana Gomez Nurse Practitioner Cardiovascular Disease 2 A, LEAD ACCOUNTANT PREASSEMBLER AND INSPECTOR [address] [place] [address] Fidencio Solis MD MD Cardiovascular Disease 08/21/21 [address] [place] [address] documented as of this encounter
--- OUTSIDE RECORDS SUMMARY | 2022-05-02 12:43 | XMS_ITS | Encounter Summary ---
:1950 Author Organization [facility] Address [address] [place] [address] Care Team Providers Name Role Phone Anatoliy Jackson MD Primary Care Provider Heath More MD Unavailable Peter Gipson MD Unavailable Encounter Details Date Type Department Care Team Description 05/14/2012 Historic Results [facility] Heart Unknown, [facility] ider Clinic [address] [place] [address] Social History [...] [address] [place] [id number] (Wo rk) 05/15/2022 Surgery Surgery Neo Torres MD BLEPHAROPLASTY BILATERAL [facility]S, INTERNAL & SURGEONS [facility] PTOSIS REPAIR BILATERAL [address] [place] [address] (Wo rk) 06/25/2022 Ancillary Procedure Cardiology Kirk Silver MD [address] [place] [address] (Wo rk) Scheduled Procedures Name Priority Associated [...] Priority Date/Time Associated Diagnosis Comme nts ECHO CARDIAC - HIM SCAN 05/14/2012 12:00 AM CDT - ARCHIVE documented in this encounter Results ECHO CARDIAC - HIM SCAN - ARCHIVE (05/14/2012 12:00 AM CDT) Specimen (Source) Anatomical Location Collection Method / Collectio n Time Received Time / Laterality Volume 05/14/2012 Narrative This result has an attachment that is no t available. Provider Scan CV ECHO ORDERABLES documented in this encounter Visit Diagnoses Not on filedocumented in this encounter Care Teams Edger Hand Relationship Specialty Start Date End Date Anatoliy Jackson MD PCP - General 05/14/12 Heath More PCP - Internal Medicine INTERNAL MEDICINE - 01/06/14 MD Andreas ENDOCRINOLOGY, [facility] [address] [place] [phone] Peter Gipson PCP - Urology 04/02/15 MD Jordan [facility] UROLOGY [address] [place] [id number] documented as of this encounter
--- OUTSIDE RECORDS SUMMARY | 2022-05-02 12:43 | XMS_ITS | Encounter Summary ---
:1950 Author Organization [facility] Address [address] [facility] [place] [address] Care Team Providers Name Role Phone Clinic, [facility] [place] Primary Care Provider [phone] Anatoliy Jackson MD Primary Care Provider Heath More MD Unavailable Peter Gipson MD Unavailable Encounter Details Date Type Department Care Team Description 10/16/2011 Historic Results [facility] Heart Unknown, [facility] ider Clinic [address] [place] [address] Social History [...] MD [facility] [address] [place] [address] (Wo rk) 05/15/2022 Surgery Surgery Neo Torres MD BLEPHAROPLASTY BILATERAL [facility] IDS, INTERNAL & SURGEONS [place] PTOSIS REPAIR BILATERAL [address] [place] [phone] (Wo rk) 06/25/2022 Ancillary Procedure Cardiology Kirk Silver MD [address] [place] [phone] (Wo rk) Scheduled Procedures Name Priority Associated [...] Comme nts US VASCULAR - HIM SCAN 10/16/2011 12:00 AM ELECTRICIAN SOUND - ARCHIVE documented in this encounter Results US VASCULAR - HIM SCAN - ARCHIVE (10/16/2011 12:00 AM ELECTRICIAN SOUND) Specimen (Source) Anatomical Location Collection Method / Collectio n Time Received Time / Laterality Volume 10/16/2011 Narrative This result has an attachment that is no t available. Provider Scan IMG US ORDERABLES documented in this encounter Visit Diagnoses Not on filedocumented in this encounter Care Teams Supervisor Personnel Clerks Relationship Specialty Start Date End Date [facility] [place] PCP - General 08/21/11 05/13/12 [place] [address] [place], [place] [phone] Anatoliy Jackson MD PCP - General 05/14/12 Heath More, PCP - Internal Medicine INTERNAL MEDICINE - ENDOCRINOLOGY, [facility] [address] [place] [phone] Peter Gipson, PCP - Urology 04/02/15 [facility] [address] [address] documented as of this encounter
--- OUTSIDE RECORDS SUMMARY | 2022-05-02 12:43 | XMS_ITS | Encounter Summary ---
:1950 Author Organization [facility] Address [address] [facility] [place] [address] Care Team Providers Name Role Phone Anatoliy Jackson MD Primary Care Provider Reason for Visit (Routine) - Closed Specialty Diagnoses / Procedures Referred By Contact Refer red To Contact Cardiology Diagnoses ECHO COMPLETE ADULT W/O CONTRAST Procedure Notes: abnormal stress test Zz Rh Echocardiography Procedures RADIOLOGY [address] [place], [place] [address] Phone: Referral ID Status Reason Start Date Expiration Date Visits Requ ested Visits Authorized [id number] Closed 05/06/2012 05/06/2013 1 1 Encounter Details Date Type Department Care Team Description 05/14/2012 Hospital Encounter [facility] Heath More MD [facility] [address] [place] [address] Cardiopulmonary Hyacinth Plummer DO [address] [place] [id number] [address] [place] [address] Social History Tobacco Use Types [...] if needed) documented as of this encounter Progress Notes Abstract, Provider - 05/14/2012 8:08 PM CDT documented in this encounter Plan of Treatment Upcoming Encounters Date Type Specialty Care Team Description 05/15/2022 Hospital Encounter Surgery Singh Torres MD [facility] [address] [place] [address] (Wo rk) 05/15/2022 Surgery Surgery Neo Torres MD BLEPHAROPLASTY BILATERAL [facility] UPPER L IDS, INTERNAL & SURGEONS [place] PTOSIS REPAIR BILATERAL [address] [place] [address] (Wo rk) 06/25/2022 Ancillary Procedure Cardiology Kirk Silver MD [address] [place] [address] (Wo rk) Scheduled Procedures Name Priority Associated [...] Date/Time Associated Diagnosis Comme nts ECHO COMPLETE WITH Routine 05/14/2012 10:08 AM Re sults for this DEFINITY CDT procedure are i n the results section. documented in this encounter Results Echo complete with definity (05/14/2012 10:08 AM CDT) [facility] Method Time Signature [facility] RADIOLOGY Interpretation Summary RESULTS Left ventricular systolic function is low normal. No regiona l wall motion abnormalities noted. Trace MR and TR without any valvular stenosis. The right ventricular systolic pressure is approximated at 38mmHg plus the right atrial pressure. PatientHeight: 71 in PatientWeight: 220 lbs SystolicPressure: 130 mmHg DiastolicPressure: 80 mmHg HeartRate: 50 bpm BSA 2.2 m^2 Left Ventricle The left ventricle is normal in size. There is normal left ventricular wall thickness. Left ventricular systolic function is low normal. The visual ejection fraction is estimated at 55-60%. The transmitral spectral Doppler flow pattern is suggestive of diastolic dysfunction of the left ventricle. No regional wall motion abnormalities noted. Right Ventricle The right ventricle is normal in size and function. Atria Normal left atrial size. Right atrial size is normal. There is no color Doppler evidence of an atrial shunt. Mitral Valve The mitral valve leaflets appear normal. There is no evidenc e of stenosis, fluttering, or prolapse. There is trace mitral regurgitation. There is no mitral valve stenosis. Tricuspid Valve Normal tricuspid valve. There is trace tricuspid regurgitation. The right ventricular systolic pressure is approximated at 3 8mmHg plus the right atrial pressure. Aortic Valve The aortic valve is trileaflet. No aortic regurgitation is present. No hemodynamically significant valvular aortic stenosis. Vessels Normal size aorta. Pericardium There is no pericardial effusion. Rhythm The rhythm was normal sinus. MMode 2D Measurements & Calculations IVSd: 1.1 cm LVIDd: 5.6 cm LVIDs: 3.0 cm LVPWd: 1.1 cm FS: 46 % LV mass(C)d: 245 grams Ao root diam: 2.7 cm LA dimension: 3.8 cm asc Aorta: 2.9 cm LA/Ao: 1.4 Doppler Measurements & Calculations MV E point: 106 cm/sec MV A point: 74 cm/sec MV E/A: 1.4 MV dec time: 0.17 sec TR Max yohan: 309 cm/sec TR Max P mmHg Interpreting Physician: ??Edmundo Schroeder MD electronically sig evie on 05-14-2012 11:37:02 Anatomical Region Laterality Modality Echocardiography Specimen (Source) Anatomical Collection Method Collection Time Re ceived Time Location / / Volume Laterality 05/14/2012 10:08 AM CDT Hyacinth Plummer DO CV ECHO ORDERABLES documented in this encounter Visit Diagnoses Not on filedocumented in this encounter Administered Medications Inactive Administered Medications - up to 3 most recent administrations Medication Order MAR Action Action Date Dose Rate Site perflutren lipid microspheres Given 05/14/2012 10:50 AM CDT 1.5 mLs (DEFINITY) injection 1.5 mL 1.5 mL, Intravenous, ONCE, On Thu05/14/12 at 1100, For 1 dose, Dispose as HW documented in this encounter Care Teams Manager Consumer Insights Relationship Specialty Start Date End Date Anatoliy Jackson MD PCP - General 05/14/12 documented as of this encounter
--- OUTSIDE RECORDS SUMMARY | 2022-05-02 12:43 | XMS_ITS | Encounter Summary ---
:1950 Author Organization [facility] Address [address] [facility] [place] [address] Care Team Providers Name Role Phone Clinic, [facility] [place] Primary Care Provider [phone] Reason for Visit (Routine) - Closed Specialty Diagnoses / Procedures Referred By Contact Refer red To Contact Cardiology Diagnoses US AORTA-ILIAC DUPLEX Procedure Notes: Intermittent claudication Zz Cardiology Img Procedures RADIOLOGY [address] [place] [address] Phone: Referral ID Status Reason Start Date Expiration Date Visits Requ ested Visits Authorized [id number] Closed 08/21/2011 08/20/2012 1 1 Encounter Details Date Type Department Care Team Description 08/25/2011 Hospital Encounter [facility] Heath Goodrich MD [facility] [place] [address] [place] [phone] Radiology - [facility] Heart Raheem Ovalles MD [facility] [address] [place] [address] Imaging Matthew Sterling MD [address] [place] [address] [place] [phone] Social History Tobacco Use Types Packs/Day Years [...] MG OR 1 TABLET DAILY 42 0 03/27/200411/2012 TABSIndications: Unspecified essential hypertension, Type II or [...] [address] [place] [address] (Wo rk) 05/15/2022 Surgery Surgery Neo Torres MD BLEPHAROPLASTY BILATERAL [facility] UPPER L IDS, INTERNAL & SURGEONS PA PTOSIS REPAIR BILATERAL [address] [place] [address] (Wo rk) 06/25/2022 Ancillary Procedure Cardiology Kirk Silver MD [address] [place] [address] (Wo rk) Scheduled Procedures Name Priority Associated [...] Name Priority Date/Time Associated Diagnosis Comme nts VUS DO-FET-EADUW Routine 08/25/2011 4:02 PM Resul ts for this DUPLEX DRUG SAFETY ASSISTANT procedure are i n the results section. documented in this encounter Results US AF-bmb-kmhyb duplex (vascular lab) (08/25/2011 4:02 PM DRUG SAFETY ASSISTANT) Anatomical Region Laterality Modality Other Specimen (Source) Anatomical Collection Method Collection Time Re ceived Time Location / / Volume Laterality 08/25/2011 4:02 PM DRUG SAFETY ASSISTANT Impressions 08/28/2011 8:58 AM DRUG SAFETY ASSISTANT [facility] ? AORTOILIAC DUPLEX ULTRASOUND ?? Patient: Nikita Anderson Date: ??08/25/2011. : ??1950 Sex: ??Male. Med Record #: [id number] Ordering: ??Raheem Ovalles MD Primary: ??Andreas More MD Technologist: Nadia Gonzalez RDMS RVT ? CLINICAL INDICATION: Intermittent claudi cation. ?? CONCLUSION: ?? Abdominal Aorta: Normal in caliber. Prox imal aorta was difficult to visualize due to overlying bowel gas. Ve locities were normal suggesting no significant obstruction. M ild, heterogeneous plaque was visualized in the aortoiliac system. ?? Iliac Arteries: Normal caliber without e levation of flow velocities suggesting no significant obstruction. ?? IMPRESSION: No significant obstructive a ortoiliac disease. ? EXAM DESCRIPTION AND FINDINGS: An abdomi nal aortoiliac ultrasound was performed using duplex ultrasound imagin g with spectral and color Doppler. ?? Aortoiliac Velocities: ?? Supra-Renal Aorta 1.9 AP ?? Supra-Renal Aorta peak systolic velocity (PSV) is 152 cm/sec ?? Aorta 1.6 AP and 2.2 transverse Aorta peak systolic velocity (PSV) is 13 4 cm/sec ? Infra-Renal Aorta 2.0 AP and 1.8 transve rse Infra-Renal Aorta peak systolic velocity (PSV) is 133 cm/sec ?? RT CHASITY 1.0 AP and 1.0 transverse RT CHASITY peak systolic velocity (PSV) is 1 95 cm/sec ? RT IIA peak systolic velocity (PSV) is 1 64 cm/sec ?? RT EIA peak systolic velocity (PSV) is 1 81 cm/sec ? LT CHASITY 1.0 AP and 1.0 transverse LT CHASITY peak systolic velocity (PSV) is 1 52 cm/sec ? LT IIA peak systolic velocity (PSV) is 1 07 cm/sec ?? LT EIA peak systolic velocity (PSV) is 9 9 cm/sec ?? STUDY QUALITY: The study quality was cary quate. ?? Raheem Ovalles MD [facility] ORDERABLES documented in this encounter Visit Diagnoses Not on filedocumented in this encounter Care Teams Publishing Director Relationship Specialty Start Date End Date Clinic, [facility] [place] PCP - General 08/21/11 05/13/12 [address] [place] [address] documented as of this encounter
--- OUTSIDE RECORDS SUMMARY | 2022-05-02 12:43 | XMS_ITS | Encounter Summary ---
:1950 Author Organization [place] Address [address] [place] [address] Care Team Providers Name Role Phone Clinic, [facility] [place] Primary Care Provider [phone] Anatoliy Jackson MD Primary Care Provider Heath More MD Unavailable Peter Gipson MD Unavailable Encounter Details Date Type Department Care Team Description 05/04/2012 Historic Results [facility] Heart Unknown, [facility] ider Clinic [address] [place] [address] Social History [...] MD [facility] [address] [place] [address] (Wo rk) 05/15/2022 Surgery Surgery Neo Torres MD BLEPHAROPLASTY BILATERAL [facility] U[facility]ER IDS, INTERNAL & SURGEONS [place] PTOSIS REPAIR BILATERAL [address] [place] [phone] (Wo rk) 06/25/2022 Ancillary Procedure Cardiology Kirk Silver MD [address] [place] [phone] (Wo rk) Scheduled Procedures Name Priority Associated [...] Diagnosis Comme nts NUCLEAR CARDIAC - HIM 05/04/2012 12:00 AM CDT SCAN - ARCHIVE documented in this encounter Results NUCLEAR CARDIAC - HIM SCAN - ARCHIVE (05/04/2012 12:00 AM CDT) Specimen (Source) Anatomical Location Collection Method / Collectio n Time Received Time / Laterality Volume 05/04/2012 Narrative This result has an attachment that is no t available. Provider Scan IMG NM ORDERABLES documented in this encounter Visit Diagnoses Not on filedocumented in this encounter Care Teams Abap Developer Relationship Specialty Start Date End Date Clinic, [place] PCP - General 08/21/11 05/13/12 [place] [address] [place], [place] [phone] Anatoliy Jackson MD PCP - General 05/14/12 Heath More, PCP - Internal Medicine INTERNAL MEDICINE - ENDOCRINOLOGY, [facility] [address] [place] [phone] Peter Gipson, PCP - Urology 04/02/15 [facility] [address] [address] documented as of this encounter
--- OUTSIDE RECORDS SUMMARY | 2022-05-02 12:43 | XMS_ITS | Encounter Summary ---
:1950 Author Organization [place] Address [address] [facility] [place] [address] Care Team Providers Name Role Phone Clinic, [facility] [place] Primary Care Provider [phone] Anatoliy Jackson MD Primary Care Provider Heath More MD Unavailable Peter Gipson MD Unavailable Encounter Details Date Type Department Care Team Description 08/25/2011 Historic Results [facility] Heart Unknown, [facility] ider Clinic [address] [place] [address] Social History [...] MD [facility] [address] [place] [address] (Wo rk) 05/15/2022 Surgery Surgery Neo Torres MD BLEPHAROPLASTY BILATERAL [facility]S, INTERNAL & SURGEONS [facility] PTOSIS REPAIR BILATERAL [address] [place] [phone] (Wo rk) 06/25/2022 Ancillary Procedure Cardiology Kirk Silver MD [address] [place] [phone] (Wo rk) Scheduled Procedures Name Priority Associated [...] Comme nts US VASCULAR - HIM SCAN 08/25/2011 12:00 AM POLLS OR SURVEYS INTERVIEWER - ARCHIVE documented in this encounter Results US VASCULAR - HIM SCAN - ARCHIVE (08/25/2011 12:00 AM POLLS OR SURVEYS INTERVIEWER) Specimen (Source) Anatomical Location Collection Method / Collectio n Time Received Time / Laterality Volume 08/25/2011 Narrative This result has an attachment that is no t available. Provider Scan IMG US ORDERABLES documented in this encounter Visit Diagnoses Not on filedocumented in this encounter Care Teams Mold Maintenance Technician Relationship Specialty Start Date End Date [facility] [place] PCP - General 08/21/11 05/13/12 [place] [address] [place], [place] [phone] Anatoliy Jackson MD PCP - General 05/14/12 Heath More, PCP - Internal Medicine INTERNAL MEDICINE - ENDOCRINOLOGY, [facility] [address] [place] [phone] Peter Gipson, PCP - Urology 04/02/[facility] [address] [address] documented as of this encounter
--- OUTSIDE RECORDS SUMMARY | 2022-05-02 12:43 | XMS_ITS | Encounter Summary ---
:1950 Author Organization [place] Address [address] [facility] [place] [address] Care Team Providers Name Role Phone Roberto Linder MD Primary Care Provider [facility], [facility] Primary Care Provider [phone] Anatoliy Jackson MD Primary Care Provider Heath Tate MD Unavailable Peter Gipson MD Unavailable Peter Aguiar MD Unavailable Peter Mcmullen MD Unavailable Fidencio Solis MD Unavailable Hallie Maldonado TRAINING SYSTEMS OFFICER FIELD RESEARCH ASSISTANT Unavailable [phone] Giuliana Gomez TRAINING SYSTEMS OFFICER FIELD RESEARCH ASSISTANT Unavailable [phone] Fidencio Solis MD Unavailable Giuliana Gomez APRN FIELD RESEARCH ASSISTANT Unavailable [phone] Giuliana Gomez APRN FIELD RESEARCH ASSISTANT Unavailable [phone] Fidencio Slois MD Unavailable Encounter Details Date Type Department Care Team Description 07/30/2011 Office Visit-[facility] Anu Kaye MD [address] VASCULAR CLINIC [place] [phone] [address] [facility] [phone] [address] [place] [address] (Wo rk) Social History Tobacco Use Types Packs/Day Years Used Date Never Smoker Alcohol Use Standard Drinks/Week Comments Yes 0 (1 standard drink = 0.6 oz pure alcoho l) occasionally Sex Assigned at Date Recorded Male 03/12/2021 12:11 PM CDT documented as of this encounter Progress Notes Raheem Ovalles MD - 08/01/2011 2:47 PM CST Vascular Diagnostic Clinic Note Created by: Raheem Ovalles M.D. DATE: 07/30/2011 NIKITA ANDERSON DATE OF : 1950 AGE: [age] years old ACCOUNT: [id number] Referring Physician: WARREN TATE Referring Clinic: [facility]OCR[facility]OLOGY CLINIC/[facility] CURRENT DIAGNOSES 1. Diabetes Mellitus-Insulin Dependent, 250.00 2. Hyperlipidemia-mixed disorder, 272.4 3. - Claudication-intermittent, 443.9 4. - Shortness of Breath, 786.05 ALLERGIES Procaine HCl, procaine, Heart racing MEDICATIONS (prior to changes made today) 1. aspirin, buffered 81 mg Tablet, 1 p.o. daily 2. clonidine 0.1 mg Tablet, 1 po daily 3. gabapentin 300 mg Capsule, 1-2 tab daily PRN 4. Humalog 100 unit/mL Solution, as directed 5. Lantus 100 unit/mL Solution, Take as Directed 6. lisinopril-hydrochlorothiazide 20-12.5 mg Tablet, 1 p.o. twice daily 7. Lovaza 1 gram Capsule, 1 p.o. twice daily 8. metoprolol succinate 50 mg Tablet Sustained Release 24 hr, 1 p.o. twice daily 9. nitroglycerin 0.4 mg Tablet, Sublingual, Take as Directed 10. simvastatin 40 mg Tablet, 1 p.o. qAM 11. testosterone 1 %(50 mg/5 gram) Gel in Packet, 1 ml injection bi weekly CHIEF COMPLAINTS New Vascular Consult-Claudication HISTORY OF PRESENT ILLNESS Mr. Anderson, a 60-year-old gentleman, was evaluated in the Vascular Diagnostic Clinic for intermittent claudication. Over the past 18 months Mr. Anderson has experienced intermittent claudication characterized as cramping and aching discomfort in both calves provoked by walking. Although he is able to walk up to two miles at a moderate pace, he does develop discomfort in both calves while walking. Walking uphill promptly provokes his discomfort, requiring him to rest. He has not developed any rest pain or ulcerations affecting his lower extremities. He did perform a stress test for evaluation of peripheral arterial disease which provoked claudication affecting both lower extremities, with an abnormal decrease in ankle pressures in the left lower extremity. On exam today he presents as a huang heavyset gentleman with a slightly protuberant abdomen. He doesappear comfortable at rest and while up walking in the office. The blood pressure in the right arm is 132/64, and in the left arm 134/70. His pulse rate is 48. He stands 71 inches tall and weighs 223 pounds. The breath sounds are normal. No pulmonary rales, wheezes, or rhonchi are heard. The inspiratory effort at rest is unlabored. No chest wall tenderness is present. The cardiac impulse is felt in the midclavicular line. The first and second heart sounds are normal at the apex. No murmurs, rubs, orgallops are heard. The rhythm is regular and the rate is normal. The carotid upstrokes are normal. No carotid artery bruits are heard. The venous column in his neck does not appear distended. The brachial, radial, ulnar, and femoral pulses are normal. No abdominal or femoral artery bruits are heard. The posterior tibial and dorsal pedis pulses are palpable in both feet although diminished (1+). No pallor or cyanosis is observed in his lower extremities. He does appear alert and oriented. He displaysnormal judgment and insight. 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, ED, decreased libido, mild nonproliferative retinopathy, hyperlipidemia Cardiology Procedures-NonInvasive: stress echo Oct 2004, stress echo Jan 2008, myocardial perfusion (Nuc) Jan 2011 Vascular Procedures-Noninvasive: RY-Exercise Jan 2011 Peripheral Vasc Procedure Results: 01/18 ABIs-normal RY RLE, near normal RY LLE (trace decrease in post exercise RY in LLE) PMHx Stress Echo Results: 10/12-normal, 01/15-normal, <GT>2 [...] no regular exercise; Residence - lives in [place] year round; Place of - [place]; REVIEW OF SYSTEMS GENERAL denies recent weight [...] Claudication PHYSICAL EXAMINATION VITAL SIGNS: Blood Pressure: 132/64Sitting, Left arm, large cuff 134/70Sitting, Right arm, large cuff Pulse- 48.00/min. Weight- 223.00 lbs. Height- 71 CONSTITUTIONAL cooperative, in no [...] time, person and place. MEDICATIONS UPDATED/STARTED TODAY: clonidine 0.1 mg Tablet, 1 po daily, #1 (Not Dispensing) Humalog 100 unit/mL Solution, as directed, #1 (Not Dispensing) MEDICATIONS REFILLED/STOPPED TODAY: Novolin R 100 unit/mL Solution Take as Directed #-1 Substitution IMPRESSIONS/PLAN In summary, Mr. Anderson is evaluated for the following cardiovascular conditions: 1. Intermittent claudication. 2. Hyperlipidemia. 3. Hypertension. Mr. Anderson has developed intermittent claudication in both lower extremities, characteristic of peripheral arterial disease. His exercise test did induce his intermittent claudication and an abnormal pressure response in his left lower extremity. For further evaluation of his peripheral arterial disease, I would recommend aortoiliac and bilateral lower extremity duplex ultrasonography. While awaiting the results of his studies I advised him to continue his current cardiovascular medications exactly as you have prescribed for him, including aspirin, clonidine, lisinopril, Lovaza, metoprolol, and simvastatin. Mr. Anderson will return for a follow-up visit in the Vascular Diagnostic Clinic to review the results of his studies. If his duplex ultrasonography confirms significant atherosclerotic peripheral arterial disease, then medical therapy and enrollment in the Vascular Diagnostic Clinic nurse-supervised walking program will be initiated. I have appreciated the opportunity to participate in the care of your patient, Mr. Anderson. TODAYS ORDERS 1. Aorta/Iliac/Bilateral LE Art Duplex 3 weeks 2. Vasc F/U With Dr Charlette M.D. Vascular DX Clinic Raheem Ovalles M.D. documented in this encounter Plan of Treatment Upcoming Encounters Date Type Specialty Care Team Description 05/15/2022 Hospital Encounter Surgery Singh Torres MD [facility] [address] [place] [id number] (Rosalva ferreira) 05/15/2022 Surgery Surgery Neo Torres MD BLEPHAROPLASTY BILATERAL [facility] PTOSIS REPAIR BILATERAL [address] [place] [id number] (Wo rk) 06/25/2022 Ancillary Procedure Cardiology Kirk Silver MD [address] [place] [id number] (Wo rk) Scheduled Procedures Name Priority Associated [...] on filedocumented in this encounter Care Teams Vaccine Specialist Relationship Specialty Start Date End Date Roberto Linder MD PCP - General 12/29/02 08/20/11 [address] [facility] [address] [place], [place] [id number] [facility], [facility] PCP - General 08/21/11 05/13/12 [facility] [address] [place], [place] [id number] Anatoliy Jackson MD PCP - General 05/14/12 Heath Tate, PCP - Internal Medicine INTERNAL MEDICINE - ENDOCRINOLOGY, ENDOCRINE CLINIC OF DIABETES & METABOLISM [facility] [address] [facility] [address] [place] [phone] Peter Gipson, PCP - Urology 04/02/15 [facility] [address] [facility] [address] [place] [address] Peter Aguiar Assigned Heart and 06/01/20 12/15/20 MD [facility] Vascular Provider [address] [place], [place] [address] Peter Mcmullen Assigned 06/01/20 MD [facility] [address] Provider [place], [place] [address] Fidencio Solis MD Assigned Heart and 12/16/20 02/21/[address], Vascular Provider [address] [place] [address] Hallie Maldonado, Assigned Heart and 02/22/2105/18 TRAINING SYSTEMS OFFICER FIELD RESEARCH ASSISTANT Vascular Provider [address] [place] [address] Giuliana Gomez Assigned Heart and 05/19/2106/15/21 A, TRAINING SYSTEMS OFFICER FIELD RESEARCH ASSISTANT Vascular Provider [address] [place], [place] [address] Fidencio Solis MD Assigned Heart and 06/16/21 06/29/[address], Vascular Provider [address] [place] [address] Giuliana Gomez Assigned Heart and 06/30/21 A, TRAINING SYSTEMS OFFICER FIELD RESEARCH ASSISTANT Vascular Provider [address] [place], [place] [address] Giuliana Gomez Nurse Practitioner Cardiovascular Disease 2 A, TRAINING SYSTEMS OFFICER FIELD RESEARCH ASSISTANT [address] [place], [place] [address] Fidencio Solis MD MD Cardiovascular Disease 08/21/[address], [address] [place] [address] documented as of this encounter
--- OUTSIDE RECORDS SUMMARY | 2022-05-02 12:43 | XMS_ITS | Encounter Summary ---
:1950 Author Organization [place] Address [address] [facility] [place] [address] Care Team Providers Name Role Phone Roberto Linder MD [facility] Provider [facility] Primary Care Provider [phone] Anatoliy Jackson MD Primary Care Provider Heath Tate MD Unavailable Peter Gipson MD Unavailable Peter Aguiar MD Unavailable Peter Mcmullen MD Unavailable Fidencio Solis MD Unavailable Hallie Maldonado EFFICIENCY MANAGER STATOR WINDER Unavailable [phone] Giuliana Gomez APRN STATOR WINDER Unavailable [phone] Fidencio Solis MD Unavailable Giuliana Gomez APRN STATOR WINDER Unavailable [phone] Giuliana Gomez APRN STATOR WINDER Unavailable [phone] Fidencio Solis MD Unavailable Encounter Details Date Type Department Care Team Description 02/06/2011 Office Visit-[facility] Heart [place], Julieta [facility] Anu Craig DO [address] [facility] [address] [place] [address] [place] [phone] Social History Tobacco Use Types Packs/Day Years Used Date Never Smoker Alcohol Use Standard Drinks/Week Comments Yes 0 (1 standard drink = 0.6 oz pure alcoho l) occasionally Sex Assigned at Date Recorded Male 03/12/2021 12:11 PM CDT documented as of this encounter Progress Notes Hyacinth Plummer, - 02/14/2011 1:30 PM CDT Progress Note Created by: Brendan Plummer D.O. DATE: 02/06/2011 NIKITA ANDERSON DATE OF : 1950 AGE: [age] years old Referring Physician: WARREN TATE Referring Clinic: ENDOCRINOLOGY CLINIC/[facility] CURRENT DIAGNOSES 1. - Claudication-intermittent, 443.9 2. - Shortness of Breath, 786.05 3. Diabetes Mellitus-Insulin Dependent, 250.00 4. Hyperlipidemia-mixed disorder, 272.4 ALLERGIES Procaine HCl, procaine, Heart racing MEDICATIONS (prior to changes made today) 1. simvastatin 40 mg Tablet, 1 p.o. qAM 2. lisinopril-hydrochlorothiazide 20-12.5 mg Tablet, 1 p.o. twice daily 3. metoprolol succinate 50 mg Tablet Sustained Release 24 hr, 1 p.o. twice daily 4. gabapentin 300 mg Capsule, 1-2 tab daily PRN 5. Novolin R 100 unit/mL Solution, Take as Directed 6. Lantus 100 unit/mL Solution, Take as Directed 7. testosterone 1 %(50 mg/5 gram) Gel in Packet, 1 ml injection bi weekly 8. aspirin, buffered 81 mg Tablet, 1 p.o. daily 9. nitroglycerin 0.4 mg Tablet, Sublingual, Take as Directed CHIEF COMPLAINTS HISTORY OF PRESENT ILLNESS: Mr. Anderson is a pleasant 60-year-old gentleman who has had a history ofinsulin-dependent diabetes for over 30 years. He does suffer from nephropathy, cataracts, and has evidence of mild kidney disease as well based upon his recent blood work. He has complaints of dyspnea with exertion and cramping of his calves with walking. He has undergone a nuclear stress test on the of this month. This was a walking adenosine nuclear study which showed a mild reversible inferior wall defect consistent with mild ischemia. His ejection fraction was estimated at 50%. Mr. Anderson has had stress testing in the past. He had one done in October,. At that time he had a significantly elevated blood pressure, hypertensive response to exercise, and the test was aborted. He was placed on antihypertensive medication at that time. In 2007 he had another stress echocardiogram. At that time he had evidence of EKG abnormalities with greater than [address] segment depression in the infer olateral leads. However, the echocardiogram did not demonstrate evidence for wall motion abnormalityconsistent with ischemia. However, the reader did note if there is concern given the EKG changes that a coronary angiogram or a CT coronary angiogram may be indicated. Mr. Anderson has suffered from shortness of breath with moderate to heavy exertion for several years. He does not feel this is worsening or progressing. He notes he has gained some weight over the last couple of years. He also has had to limit his activity because of cramping in his calves. He did undergo an ankle brachial index with exercise. This was done on January 22 as well. He walked on a treadmill for 5 minutes at a pace of 1.5 mil es per hour and at 10% grade. His baseline ABIs were normal and post exercise were 1.11 and 1.14 on the left, suggesting normal blood flow. However, the patient tells me he did not have any symptoms ofcalf pain while walking on the treadmill. He continues to have fairly consistent cramping in the lower extremities with any type of physical activity, walking either hill or flat ground, and this goes away with rest. Mr. Anderson has had recent blood tests including kidney function showing a creatinine of 1.54, and mild kidney disease with a GFR of 54. His hemoglobin A1C was measured at 8.6, showing suboptimal control of his blood sugars. Total cholesterol is 160, HDL 35, LDL 63, and triglycerides were 310. He had normal thyroid stimulating hormone and liver function tests. He has persistent HDL deficiency with hypertriglyceridemia. He tells me in addition to taking simvastatin he was prescribed a medication by Dr. Tate for his triglycerides but he was very concerned about a $96 per month copay of this medication and did not fill this medication. He does not recall what type of medication it was or the nameof it. He has had an electrocardiogram on January 22, which I do have available for review. It demonstrates a normal sinus rhythm with a rightward axis. He has T wave abnormalities seen inferiorly and in V6, suggesting possible inferior ischemia. On exam today his blood pressure is 107/53, pulse 55, and body mass index is 29. I do not appreciatecarotid bruits on exam or jugular venous distention. Cardiovascular tones are regular. I do not heara murmur, gallop, or rub. His Lungs are clear posteriorly. He has no abdominal bruits. He has palpable pulses in the upper extremities. They are somewhat diminished in the lower extremities and there is no peripheral edema. He has significant skin abrasions to his shins. He tells me he is tough on hisknees and legs at work. He denies any history of nonhealing ulcers or abrasions to his lower extremities. PAST HISTORY Past Medical Illnesses: Diabetes, HTN, [...] 01/18 Nuclear Results: 01/18 mild inferior ischemia FAMILY HISTORY: CARDIAC RISK FACTORS Tobacco Abuse: [...] no regular exercise; Residence - lives in [place] year round; Place of - [place]; REVIEW OF SYSTEMS GENERAL denies recent weight [...] MUSCULOSKELETAL arthritis of the wrist(s) hand(s) NEUROLOGICAL denies any history of recurrent strokes, headaches, TIA, or seizure disorder. PSYCHIATRIC denies any history of depression, substance abuse or change in cognitive functions. ENDOCRINE insulin dependent diabetes mellitus HEMATOLOGICAL/IMMUNOLOGIC denies any food allergies, seasonal allergies, bleeding disorders. PHYSICAL EXAMINATION VITAL SIGNS: Blood Pressure: 107/53Sitting, Right arm, regular cuff Pulse- 55.00/min. Weight- 212.30 lbs. Height- 71.00 Temperature- .00 CONSTITUTIONAL cooperative, in no acute distress SKIN [...] no bruits, moderately obese PERIPHERAL PULSES pulses full and equal in all extremities, no bruits auscultated. EXTREMITIES & BACK no clubbing, cyanosis or edema NEUROLOGICAL no gross motor deficits noted, affect appropriate, oriented to time, person and place. MEDICATIONS UPDATED/STARTED TODAY: aspirin, buffered 81 mg Tablet, 1 p.o. daily, #0 gabapentin 300 mg Capsule, 1-2 tab daily PRN, #0 Lantus 100 unit/mL Solution, Take as Directed, #-1 lisinopril-hydrochlorothiazide 20-12.5 mg Tablet, 1 p.o. twice daily, #0 metoprolol succinate 50 mg Tablet Sustained Release 24 hr, 1 p.o. twice daily, #-1 nitroglycerin 0.4 mg Tablet, Sublingual, Take as Directed, #30 (Thirty) Novolin R 100 unit/mL Solution, Take as Directed, #-1 simvastatin 40 mg Tablet, 1 p.o. qAM, #-1 testosterone 1 %(50 mg/5 gram) Gel in Packet, 1 ml injection bi weekly, #0 IMPRESSIONS/PLAN ASSESSMENT/PLAN: In summary, Mr. Anderson is a pleasant 60-year-old male with ongoing symptoms of dyspnea on exertion and leg cramping with exercise, highly suggestive of claudication despite normal ABIwith exercise, longstanding insulin-dependent diabetes with nephropathy, neuropathy, and cataracts, h ypertension that is well controlled, and mixed hyperlipidemia with poor control of triglycerides andHDL deficiency. I did go over the results of his nuclear stress test. He likely does have coronary artery disease based on his test findings and previous test findings, but it is unclear whether his symptoms of shortness of breath are directly related to this. The area on nuclear stress testing does suggest a small area representing less than 10% of the total myocardial muscle and is mild in severity. It would be a reasonable option to treat medically and continue to follow for progression of coronary disease with annual stress testing. There is a small chance of underestimation of disease on nuclear stress testing. I did talk to him about alternative options, including CT coronary angiogram, as well as invasive coronary angiogram and their risks and benefits with each. He does demonstrate mild kidney dysfunction. Therefore, in addition to the risk of invasive coronary angiogram including stroke, ND, and bleeding complications, he does run the risk of contrast nephropathy given his diabetes andkidney dysfunction although I do not believe that this is prohibitive. After a lengthy discussion with the patient and his , we are going to continue to optimize his medications for aggressive control of his risk factors, outlined below. 1. High blood pressure is wellcontrolled. 2. His last hemoglobin A1C was 8.1. I would recommend aggressive control of blood sugars for goal ofhemoglobin A1C around 6%. 3. Mixed hyperlipidemia. He continues to have persistent HDL deficiency and hypertriglyceridemia. I have suggested Lovaza for treatment of the above. He is not sure whether this was the medication that Dr. Tate prescribed. I have given him some samples, as well as a reduction in the copay card for this. If this ends up being one and the same medication, I have asked him to contact either me or Dr. Tate for alternatives to this. In addition, he should exercise with aerobic activity for a minimum of 20 minutes on a daily basis and also attempt to lose weight. His goal weight should be between 180-190 pounds. He should continue to take simvastatin at its current dose. In addition, aspirin and beta-hong for prevention of cardiovascular events. 4. In addition I have prescribed nitroglycerin in case he should experience any symptoms of chest discomfort. I have alsotalked to him at great length that if he experiences any physical deconditioning, increasing shortness of breath, dyspnea on exertion, or chest discomfort that is unexplained he should contact me and we should proceed with further definition of his coronary anatomy and possible intervention. 5. I would recommend annual nuclear stress tests to follow for progression of coronary artery disease as well. Please feel free to contact me with any questions you have in regard to his care. ADDENDUM: I have referred him to Dr. Ovalles in Vascular clinic due to his symptoms of leg cramping with exertion that are highly suggestive of claudication, despite his apparent normal RY with exercise (note he did not have reproducible symptoms during testing) TODAYS ORDERS 1. Vasc Dx Cl Initial Visit Vasc Dx Clinic-Marlow Topher Pulmmer D.O. cc:Nadia Tate M.D. documented in this encounter Plan of Treatment Upcoming Encounters Date Type Specialty Care Team Description 05/15/2022 Hospital Encounter Surgery Singh Torres MD [facility] [address] [place] [address] (Wo rk) 05/15/2022 Surgery Surgery Neo Torres MD BLEPHAROPLASTY BILATERAL [facility] PTOSIS REPAIR BILATERAL [address] [place] [address] (Wo rk) 06/25/2022 Ancillary Procedure Cardiology Kirk Silver MD [address] [place] [address] (Wo rk) Scheduled Procedures Name Priority Associated [...] on filedocumented in this encounter Care Teams Unit Leader Relationship Specialty Start Date End Date Roberto Linder MD PCP - General 12/29/02 08/20/[address] [place] [address] [facility], [facility] PCP - General 08/21/11 05/13/12 [place] [address] [place] [address] Anatoliy Jackson MD PCP - General 05/14/12 Heath Tate, PCP - Internal Medicine INTERNAL MEDICINE - ENDOCRINOLOGY, ENDOCRINE CLINIC OF DIABETES & METABOLISM [facility] [address] [place] [address] Peter Gipson, PCP - Urology 04/02/15 [facility] [address] [facility] [address] [place], [place] [id number] Peter Aguiar Assigned Heart and 06/01/20 12/15/20 MD [facility] Vascular Provider [address] [place], [place] [address] Peter Mcmullen Assigned 06/01/20 MD [facility] [address] Provider [place], [place] [address] Fidencio Solis MD Assigned Heart and 12/16/20 02/21/[address], Vascular Provider [address] [place] [address] Hallie Maldonado, Assigned Heart and 02/22/2105/18 EFFICIENCY MANAGER STATOR WINDER Vascular Provider [address] [place] [address] Giuliana Gomez Assigned Heart and 05/19/2106/15/21 A, EFFICIENCY MANAGER STATOR WINDER Vascular Provider [address] [place] [address] Fidencio Solis MD Assigned Heart and 06/16/21 06/29/21 [address], Vascular Provider [address] [place], [place] [address] Giuliana Gomez Assigned Heart and 06/30/21 A, CALLIE STATOR WINDER Vascular Provider [address] [place], [place] [address] Giuliana Gomez Nurse Practitioner Cardiovascular Disease 2 A, EFFICIENCY MANAGER STATOR WINDER [address] [place] [address] Fidencio Solis MD MD Cardiovascular Disease 08/21/21 [address] [place] [place] [id number] documented as of this encounter
--- OUTSIDE RECORDS SUMMARY | 2022-05-02 12:43 | XMS_ITS | Encounter Summary ---
:1950 Author Organization [place] Address [address] [facility] [place] [address] Care Team Providers Name Role Phone Eliza Jackson MD Primary Care Provider Heath More MD Unavailable Peter Gipson MD Unavailable Peter Aguiar MD Unavailable Peter Mcmullen MD Unavailable Fidencio Solis MD Unavailable Hallie Maldonado APRN LICENSE EXAMINER Unavailable [phone] Giuliana Gomez APRN LICENSE EXAMINER Unavailable Fidencio Solis MD Unavailable Giuliana Gomez APRN LICENSE EXAMINER Unavailable [phone] Giuliana Gomez APRN LICENSE EXAMINER Unavailable [phone] Fidencio Solis MD Unavailable Encounter Details Date Type Department Care Team Description 05/20/2012 Office Visit-[facility] Heart Santiago Lemus [facility] Anu Spain PA-C [address] [facility] [address] [place] [address] [place] [address] [phone] Social History Tobacco Use Types Packs/Day Years Used Date Never Smoker Alcohol Use Standard Drinks/Week Comments Yes 0 (1 standard drink = 0.6 oz pure alcoho l) occasionally Sex Assigned at Date Recorded Male 03/12/2021 12:11 PM CDT documented as of this encounter Progress Notes Riddhi Lemus PA-C - 05/25/2012 3:12 PM CDT Progress Note Created by: Keily Newton DATE: 05/20/2012 LELO NIKITA DATE OF : 1950 AGE: [age] years old Referring Physician: ELIZA JACKSON Referring Clinic: [facility] CURRENT DIAGNOSES 1. Diabetes Mellitus-Insulin Dependent, 250.00 2. Hyperlipidemia-mixed disorder, 272.4 3. - Claudication-intermittent, 443.9 4. - Shortness of Breath, 786.05 5. HYPERTENSIVE HEART DISEASE UNSPECIFIED, 402.9 6. - Abnormal Function Test unspecified, 794.30 7. BENIGN ESSENTIAL HYPERTENSION, 401.1 ALLERGIES Procaine HCl, procaine, Heart racing MEDICATIONS (prior to changes made today) 1. aspirin, buffered 81 mg Tablet, 1 p.o. daily 2. gabapentin 300 mg Capsule, 1-2 tab daily PRN 3. Lantus 100 unit/mL Solution, Take as Directed 4. lisinopril-hydrochlorothiazide 20-12.5 mg Tablet, 1 p.o. twice daily 5. metoprolol succinate 50 mg Tablet Sustained Release 24 hr, 1 p.o. twice daily 6. nitroglycerin 0.4 mg tablet, sublingual, 1 Tab Sublingual - May Repeat Every 5 Minutes x2 For Chestpain 7. simvastatin 40 mg Tablet, 1 p.o. qAM 8. cilostazol 50 mg Tablet, 1 dose by mouth twice each day 9. Humalog 100 unit/mL Solution, as directed 10. clonidine 0.1 mg Tablet, 1 po twice daily CHIEF COMPLAINTS HISTORY OF PRESENT ILLNESS I had the pleasure of meeting Mr. Anderson today when he came for followup of his recent testing. Heis a pleasant 61-year-old who has a long history of insulin-dependent diabetes mellitus for which hefollows closely with Dr. More. He has had a history of claudication and is seeing Dr. Ovalles for his peripheral artery disease. He has hyperlipidemia, hypertension and renal insufficiency for which he has recently been seeing Dr. Lopez. He has complained for quite some time about dyspnea on exertion. He initially saw Dr. Plummer in January2011, and a stress test showing mild ischemia in the territory of the inferior wall was reviewed. However, there was significant bowel artifact that decreased the specificity of the finding. As the area represented less than 10% of the total myocardium he has been treated medically with aggressive risk factor control as he was largely asymptomatic. He saw Dr. Plummer again last month and at that time they discussed his heartburn. He found it somewhat difficult to describe but noted a burning sensation and motioned up and down the esophagus. It did not seem to be related to exertion. 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 Dr. Plummer did recommend proceeding with stress testing but noted that plans for angiogram or even cardiac MRI would be inhibited secondary to his history of significant renal insufficiency. In April of this year lab results showed that his creatinine was 2.22, with BUN of 67. His potassium at that time was upper limits of normal at 5.2. Stress testing was done on 05/04 showing a small reversible inferior wall defect with left ventricular chamber enlargement. Again, Dr. Plummer did consider getting a cardiac MRI but due to his increasedcreatinine and the worry for gadolinium use, she proceeded with an echocardiogram. This was done on 05/14/12 in [place] and showed no regional wall motion abnormalities with a normal ejection fraction of 55-60%. It was noted he had no significant valvular abnormalities. He did have an elevated RVSPof 38 plus right atrial pressure. Dr. Plummer reviewed these findings and noted that if he were to start describing more chest discomfort when I saw him in clinic we should proceed with nitrate initiation. Since that time, however, Nikita tells me he has not had any problems with heartburn or any other discomfort in the chest area. He has not been really testing his exertional capacity due to the fact that work has slowed down quite a bit. He does continue to note some shortness of breath but it has notworsened at all. Again, he denies chest pain, pressure or tightness. He denies any edema, orthopnea,PND, lightheadedness, camilo syncope or palpitations. He is quite pleased to tell me that Dr. Lopez recently rechecked his creatinine after discontinuation of fenofibrate and apparently his creatinine is now back to normal. I have not yet received those results but that is certainly excellent news. The only other thing Mr. Anderson relates is that recently he was treated for prostatitis. This is clearing up. REVIEW OF SYSTEMS GENERAL review echo, nuc INTEGUMENTARY denies any change in hair or nails, rashes, or skin lesions. EYES denies diplopia, history of glaucoma or visual field defects. EARS, NOSE, THROAT, MOUTH denies any hearing loss, epistaxis, hoarseness or difficulty speaking. RESPIRATORY denies dyspnea, cough, wheezing or hemoptysis. CARDIOVASCULAR light headedness, when looking up while at work ABDOMINAL denies ulcer disease, hematochezia or melena. MUSCULOSKELETAL arthritis of the wrist(s) hand(s) NEUROLOGICAL diabetic seizure PSYCHIATRIC denies any history of depression, substance abuse or change in cognitive functions. ENDOCRINE insulin dependent diabetes mellitus HEMATOLOGICAL/IMMUNOLOGIC denies any food allergies, seasonal allergies, bleeding disorders. VASCULAR left calf pain after 1/4 mile PHYSICAL EXAMINATION VITAL SIGNS: Blood Pressure: 120/60 Sitting, Right arm, regular cuff Pulse- 52.00/min. Weight- 223.00 lbs. Height- 71 BMI Measurement: 31 CONSTITUTIONAL [...] pulses below the femoral arteries are diminished - no open sores noted EXTREMITIES & BACK no clubbing or cyanosis. Trace edema bilateral LEs NEUROLOGICAL no gross motor deficits noted, affect appropriate, oriented to time, person and place. MEDICATIONS REFILLED TODAY: nitroglycerin 0.4 mg tablet, sublingual, 1 Tab Sublingual - May Repeat Every 5 Minutes x2 For Chestpain, 2 vials IMPRESSION/PLAN: 1. Presumed coronary artery disease, with abnormal stress test. He has now had two abnormal stress tests, both showing defects in the inferior region. His wall motion was completely normal on echocardiogram done May 14. Dr. Plummer had proceeded down this path due to the fact that he had significantrenal insufficiency and was hoping to avoid coronary angiography. He now tells me that his creatinine has improved. Nevertheless, he remains completely asymptomatic at this time. He does have nitroglycerin, is on aspirin, statin, beta-hong, and JAMAR inhibitor therapy and at this time feels very comfortable continuing to watch and wait and determining if his chest discomfort comes back. We again re viewed the need for nitroglycerin versus Tums. He tells me that he will be traveling and hiking in the next few months and I explained that he certainly would need to pay very close attention to his symptoms and make sure he has all of his medication and could seek emergent attention if needed. In the past Dr. Plummer had noted that if creatinine remained elevated we would continue with medicaltherapy as long as we could. I will contact her after seeing the results of the most recent creatinine to determine if she would prefer to proceed with coronary angiography any earlier despite his asymptomatic status. He is diabetic and I did explain to the patient that oftentimes the symptoms could be somewhat different. He did request a booklet of normal symptoms which I happily gave him from ourclinic. He will continue his current medications, seek emergent attention if needed, and continue to monitorsymptoms. I would like to watch him carefully and have asked that he see his primary professional soccer player, Dr. Plummer,within the next two to three months. He would prefer down in [place] if possible. He tells me he will contact us much sooner, obviously, if he starts to get more concerning symptoms. 2. Renal insufficiency. He has seen Dr. Lopez and per his report his creatinine is much improved after discontinuation of the fenofibrate. I have asked Dr. Plummer's nurses to obtain these results from Dr. Lopez's office so we can get them into our record. This certainly may change Dr. Plummer's decision whether or not MRI versus standard coronary angiography may be beneficial, and I will lether know as soon as I get these results. 3. Diabetes. He follows with Dr. More quite closely for this and is on insulin. He does remain on aspirin and JAMAR inhibitor. 4. Hyperlipidemia. Again, this is followed by Dr. More. As noted above, Dr. Lopez had him stop his fenofibrate. I have suggested that he see Dr. More for a repeat lipid panel including triglyceride level when he sees him in August, and he voiced understanding. TODAYS ORDERS 1. F/U with Brendan Plummer, DO 2 months Riddhi Lemus PJane documented in this encounter Plan of Treatment Upcoming Encounters Date Type Specialty Care Team Description 05/15/2022 Hospital Encounter Surgery Singh Torres MD [facility] [address] [place] [address] [place] [id number] (Wo rk) 05/15/2022 Surgery Surgery Neo Torres MD BLEPHAROPLASTY BILATERAL [facility], [facility] [place] PTOSIS REPAIR BILATERAL [address] [place] [id number] (Wo rk) 06/25/2022 Ancillary Procedure Cardiology Kirk Silver MD [address] [place] [id number] (Wo rk) Scheduled Procedures Name Priority Associated [...] filedocumented in this encounter Care Teams Director Regulatory Compliance Relationship Specialty Start Date End Date Eliza Jackson, PCP - General 05/14/12 Heath More PCP - Internal Medicine INTERNAL MEDICINE - 01/06/14 MD Andreas ENDOCRINOLOGY, DIABETES [facility]ISM [facility] [address] [place] [phone] Peter Gipson PCP - Urology 04/02/15 MD [facility] [address] [place] [address] [address] [place], [place] [id number] Peter Aguiar Assigned Heart and 06/01/20 12/15/20 MD Ishan Vascular Provider [address] [place] [id number] Peter Mcmullen Assigned Musculoskeletal 06/01/20 MD Mahendra Provider [address] [facility] [address] [place], [place] [address] Fidencio Solis MD Assigned Heart and 12/16/20 02/21/[address], Vascular Provider [address] [place] [address] Hallie Maldonado, Assigned Heart and 02/22/2105/18 PAD EXTRACTOR TENDER LICENSE EXAMINER Vascular Provider [address] [place] [address] Giuliana Gomez Assigned Heart and 05/19/2106/15/21 A, PAD EXTRACTOR TENDER LICENSE EXAMINER Vascular Provider [address] [place] [address] Fidencio Solis MD Assigned Heart and 06/16/21 06/29/[address], Vascular Provider [address] [address] [place] [address] Giuliana Gomez Assigned Heart and 06/30/21 A, PAD EXTRACTOR TENDER LICENSE EXAMINER Vascular Provider [address] [place] [address] Giuliana Gomez Nurse Practitioner Cardiovascular Disease 2 A, PAD EXTRACTOR TENDER LICENSE EXAMINER [address] [place] [address] Fidencio Solis MD MD Cardiovascular Disease 08/21/[address], [address] [place] [address] documented as of this encounter
--- OUTSIDE RECORDS SUMMARY | 2022-05-02 12:43 | XMS_ITS | Encounter Summary ---
:1950 Author Organization [place] Address [address] [facility] [place] [address] Care Team Providers Name Role Phone Clinic, [facility] Primary Care Provider [phone] Anatoliy Jackson MD Primary Care Provider Heath Tate MD Unavailable Peter Gipson MD Unavailable Peter Aguiar MD Unavailable Peter Mcmullen MD Unavailable Fidencio Solis MD Unavailable Hallie Maldondao BONE DRIER BDR Unavailable [phone] Giuliana Gomez APRN BDR Unavailable [phone] Fidencio Solis MD Unavailable Giuilana Gomez APRN BDR Unavailable [phone] Giuliana Gomez APRN BDR Unavailable [phone] Fidencio Solis MD Unavailable Encounter Details Date Type Department Care Team Description 04/19/2012 Office Visit-[facility] Heart [place], [facility] an[facility] Anu Craig DO [address] [place] [address] [place] [address] [phone] Social History Tobacco Use Types Packs/Day Years Used Date Never Smoker Alcohol Use Standard Drinks/Week Comments Yes 0 (1 standard drink = 0.6 oz pure alcoho l) occasionally Sex Assigned at Date Recorded Male 03/12/2021 12:11 PM CDT documented as of this encounter Progress Notes Hyacinth Plummer, - 04/22/2012 2:22 PM CDT Progress Note Created by: Brendan Plummer D.O. DATE: 04/19/2012 NIKITA ANDERSON DATE OF : 1950 AGE: [age] years old Referring Physician: WARREN TATE Referring Clinic: [facility] CURRENT DIAGNOSES 1. Diabetes Mellitus-Insulin Dependent, 250.00 [...] 1 ml injection bi weekly CHIEF COMPLAINTS HISTORY OF PRESENT ILLNESS Mr. Anderson is a pleasant 61-year-old gentleman with a history of type 2 diabetes, hypertension, renal insufficiency and a history of abnormal Cardiolite stress test, suggesting coronary disease. He ishere for a follow-up visit today. He had symptoms of shortness of breath and last year in January we asked him to undergo a Cardiolite stress test. That did demonstrate mild ischemia in the territory of the inferior wall, although there was bowel artifact that decreased the specificity of the finding. The area represented less than 10% of the total myocardium. We elected to treat him medically and work to aggressively control his risk factors. Over the past year, he states his breathing has not been much of an issue. He is active. It sounds like he has been doing some [place]. He is working in his yard. I had sent him also to the vascular clinic because of symptoms of claudication. He had seen Dr. Ovalles who placed him on cilostazol and also a walking program. He cannot honestly tell me whether this has helped or not and he apparently has lapsed in his exercise or walking routine, but he has not noticed much in the way of cramping in his lower extremities. He has been continuing to suffer from what he describes as heartburn. Again, he finds it difficult to describe the sensation, although he does use the word burning and hand motion in his midsternal area, up and down along his esophagus is where he describes this at. He also mentions that it feels likehe has to belch. He does not note any exacerbating or relieving factors. It does not seem to be related to exertion. He recalls one episode where it was quite severe. He felt that eating did help to alleviate it. He has not tried any self remedies surprisingly, such as Tums or Maloox or igga-zmk-eaevxok acid suppressant or even nitroglycerin for this. He says it lasts anywhere from a few minutes to an hour and subsides on its own. It has been occurring quite frequently, almost everyday this spring, maybe a little less so this summer. He denies any associated symptoms, specifically denying shortnessof breath, palpitations, lightheadedness, nausea. He has seen Dr. Lopez for renal insufficiency and was taken off of fenofibrate and he is to follow up to recheck his kidney function. He has also seen Dr. Tate in January for a followup of his diabetes and cholesterol. Dr. Tate notes his lipids were okay in July. On physical exam, his blood pressure today is 120/58. Pulse is 58. Weight is 220 pounds. He has gained about three pounds since his last visit, which was just in March with Dr. Ovalles, but he is actually down two pounds from last year. He has brisk carotid upstrokes. I do not appreciate bruits or jugular venous distention. Cardiovascular tones are regular without murmur, gallop or rub. Lungs are clear posteriorly and he has no peripheral edema. PAST HISTORY Past Medical Illnesses: [...] left renal artery, left renal cyst PMHx Stress Echo Results: 10/12-normal, 01/15-normal, <GT>2 [...] 50% by Nuclear study 01/18 FAMILY HISTORY: Parents - hypertension; CARDIAC RISK [...] Lifestyle - ; Exercise - no regular exercise and didn't want to be part of walking program; Residence - lives in [place] year [...] mile PHYSICAL EXAMINATION VITAL SIGNS: Blood Pressure: 120/58Sitting, Left arm, large cuff Pulse- 58.00/min. Weight- 220.00 lbs. Height- 71 BMI Measurement: 30 CONSTITUTIONAL cooperative, in no [...] time, person and place. MEDICATIONS UPDATED/STARTED TODAY: MEDICATIONS REFILLED/STOPPED TODAY: Lovaza 1 gram Capsule 1 p.o. twice daily #60 (Sixty) Physician Order IMPRESSIONS/PLAN In summary, Mr. Anderson is a pleasant 61-year-old male with a history of abnormal stress test suggesting coronary disease, type 2 diabetes, hypertension, hyperlipidemia and renal insufficiency. He is experiencing symptoms of chest discomfort, which he describes as heartburn. This is nonexertional and there are no associated symptoms. This is fairly atypical for angina; however, we do know that he had an abnormal stress test last January involving the inferior wall. I would like to repeat a stress test to look for evidence of ischemia. Again, there was bowel artifact decreasing the specificity of this finding last year. I am hoping that this year we will get a better image and determine whether or not he has any evidence of ischemia and/or progression of ischemia. In the meantime, I have asked him to try self remedies with his symptoms of heartburn, such as Maalox, Tums or sdud-qmv-sdxcjjt acid suppressant. If these are ineffective, he should also try nitroglycerin. He should not let his symptoms continue for more than an hour without seeking medical evaluation. I did caution him to stop both his cilostazol and metoprolol in advance of the stress test in hopes to get an adequate stress test and we will have him follow up with the results of this once it is complete. Please feel free to contact me with any questions you have in regards to his care. TODAYS ORDERS 1. Lexiscan Infusion 2 Days, able to convert to treadmill stress if pt able to exercise 2. F/U with Keily Bonds 4-7 days Brendan Plummer D.O. documented in this encounter Plan of Treatment Upcoming Encounters Date Type Specialty Care Team Description 05/15/2022 Hospital Encounter Surgery Singh Torres MD [facility] [address] [place] [address] [place] [address] (Wo rk) 05/15/2022 Surgery Surgery Neo Torres MD BLEPHAROPLASTY BILATERAL [place] [facility]PP[facility] L IDS, INTERNAL & SURGEONS [place] PTOSIS REPAIR BILATERAL [address] [place] [address] [place] [address] (Wo rk) 06/25/2022 Ancillary Procedure Cardiology Kirk Silver MD [address] [place] [id number] (Wo rk) Scheduled Procedures Name Priority Associated [...] on filedocumented in this encounter Care Teams Action Installer Relationship Specialty Start Date End Date Clinic, [facility] PCP - General 08/21/11 05/13/12 [place] [address] [place], [place] [id number] Anatoliy Jackson MD PCP - General 05/14/12 Heath Tate, PCP - Internal Medicine INTERNAL MEDICINE - ENDOCRINOLOGY, ENDOCRINE CLINIC OF DIABETES & METABOLISM [facility] [address] [place] [phone] Peter Gipson, PCP - Urology 04/02/15 [facility] [address] [place] [address] [address] [place], [place] [id number] Peter Aguiar Assigned Heart and 06/01/20 12/15/20 MD Ishan Vascular Provider [address] [facility] [place] [address] Peter Mcmullen Assigned 06/01/20 MD Mahendra Musculoskeletal [address] Provider [place], [place] [address] Fidencio Solis MD Assigned Heart and 12/16/20 02/21/[address], Vascular Provider [address] [address] [place] [address] Hallie Maldonado, Assigned Heart and 02/22/2105/18 BONE DRIER BDR Vascular Provider [address] [place] [address] Giuliana Gomez Assigned Heart and 05/19/2106/15/21 CALLIE Hernandez BDR Vascular Provider [address] [place], [place] [address] Fidencio Solis MD Assigned Heart and 06/16/21 06/29/21 [address], Vascular Provider [address] [address] [place] [address] Giuliana Gomez Assigned Heart and 06/30/21 A, BONE DRIER BDR Vascular Provider [address] [place] [address] Giuliana Gomez Nurse Practitioner Cardiovascular Disease 2 A, BONE DRIER BDR [address] [place] [id number] Fidencio Solis MD MD Cardiovascular Disease 08/21/21 [address] [place] [id number] documented as of this encounter
--- OUTSIDE RECORDS SUMMARY | 2022-05-02 12:43 | XMS_ITS | Encounter Summary ---
:1950 Author Organization [place] Address [address] [facility] [place] [address] Care Team Providers Name Role Phone Clinic, [facility] [place] Primary Care Provider [phone] Anatoliy Jackson MD Primary Care Provider Heath Tate MD Unavailable Peter Gipson MD Unavailable Peter Aguiar MD Unavailable Peter Mcmullen MD Unavailable Fidencio Solis MD Unavailable Hallie Maldonaod AUTOMATIC DRILLING MACHINE OPERATOR TAPE FASTENER MACHINE OPERATOR Unavailable [phone] Giuliana Gomez APRN TAPE FASTENER MACHINE OPERATOR Unavailable [phone] Fidencio Solis MD Unavailable Giuliana Gomez APRN TAPE FASTENER MACHINE OPERATOR Unavailable [phone] Giuliana Gomez APRN TAPE FASTENER MACHINE OPERATOR Unavailable [phone] Fidencio Solis MD Unavailable Encounter Details Date Type Department Care Team Description 03/17/2012 Office Visit-[facility]Do [facility] Anu Kaye MD [address] [facility] [address] VASCULAR CLINIC [place] [address] [address] [facility] [phone] [place] [address] (Wo rk) Social History Tobacco Use Types Packs/Day Years Used Date Never Smoker Alcohol Use Standard Drinks/Week Comments Yes 0 (1 standard drink = 0.6 oz pure alcoho l) occasionally Sex Assigned at Date Recorded Male 03/12/2021 12:11 PM CDT documented as of this encounter Progress Notes Raheem Ovalles MD - 03/19/2012 9:18 AM CDT Vascular Diagnostic Clinic Note Created by: Raheem Ovalles M.D. DATE: 03/17/2012 NIKITA ANDERSON DATE OF : 1950 AGE: [age] years old Referring Physician: WARREN TATE Referring Clinic: ENDOCRINOLOGY CLINIC[facility] CURRENT DIAGNOSES 1. Diabetes Mellitus-Insulin Dependent, 250.00 2. Hyperlipidemia-mixed disorder, 272.4 3. - Claudication-intermittent, 443.9 4. - Shortness of Breath, 786.05 5. HYPERTENSIVE HEART DISEASE UNSPECIFIED, 402.9 6. BENIGN ESSENTIAL HYPERTENSION, 401.1 ALLERGIES Procaine HCl, [...] 1 ml injection bi weekly CHIEF COMPLAINTS Vascular clinic f/u HISTORY OF PRESENT ILLNESS Mr. Anderson, a 61-year-old gentleman, was evaluated for peripheral arterial disease. He has experienced claudication affecting both lower extremities. Previously, physiologic testing has demonstrated significant bilateral peripheral arterial disease with decreased systolic pressure at the ankles postexercise. Duplex ultrasonography in August 2011 showed diffuse atherosclerotic plaque in the arteriesof his lower extremities without significant focal narrowing. Continued medical management was recommended. Cilostazol was prescribed. The patient was instructed in a walking program, although he has not been walking regularly due to the demands of his work. He does develop claudication after walking for less than 1/2 mile outdoors. With rest, the aching pain in both calves does resolve. He has not developed any rest pain or ulcerations affecting his lower extremities. He has not suffered from any exertional angina pectoris. In general, his daily activities have not been restricted by undue dyspneaor fatigue. On exam, he presents as an alert and active gentleman. He appears comfortable at rest and while up walking in the office. The blood pressure in the right brachial artery is 100/54. In the left brachialartery it is 102/50. No significant differential in blood pressure is observed to indicate unilateral subclavian artery stenosis. The pulse rate is 58. He stands 71 inches tall. He weighs 217 pounds. The breath sounds are normal. No pulmonary rales, wheezes, or rhonchi are heard. The inspiratory effort at rest is unlabored. No chest wall tenderness is present. The cardiac impulse is felt in the midclavicular line. The first and second heart sounds are normal at the apex. No murmurs, rubs, or gallopsare heard. The rhythm is regular. The rate is normal. The carotid upstrokes are normal. No carotid artery bruits are heard. The venous column in his neck does not appear distended. The brachial, radial, femoral, and posterior tibial pulses are palpable. He does appear alert and oriented. He displays no rmal judgment and insight. His recent renal artery ultrasound examination showed normal flow velocities in the right and left renal arteries and normal Doppler waveforms in the segmental arteries. No signs of renal artery stenosis were observed. A simple cyst was incidentally noted in the left kidney. PAST HISTORY Past Medical Illnesses: Diabetes, HTN, [...] of walking program; Residence - lives in [place] year round; Place of - [place]; REVIEW OF SYSTEMS GENERAL denies recent weight [...] mile PHYSICAL EXAMINATION VITAL SIGNS: Blood Pressure: 100/54Sitting, Right arm, large cuff 102/50Sitting, Left arm, large cuff Pulse- 58.00/min. Weight- 217.00 lbs. Height- 71 BMI Measurement: 30 30 CONSTITUTIONAL cooperative, in no acute distress [...] time, person and place. MEDICATIONS UPDATED/STARTED TODAY: IMPRESSION/PLAN In summary, Mr. Anderson was evaluated for the following cardiovascular conditions: 1. Peripheral arterial disease. 2. Intermittent claudication. 3. Hypertension. 4. Chronic kidney disease. 5. Hyperlipidemia. Mr. Anderson is experiencing intermittent claudication due to diffuse atherosclerotic plaque in the arteries of his lower extremities. I would recommend continued medical management. Cilostazol at 50 mgtwice each day has been prescribed for his intermittent claudication. He was again instructed in a walking program to improve his walking distance. I advised him to continue his other medications exactly as you have prescribed for him. He is currently taking aspirin, clonidine, lisinopril, hydrochlorothiazide, Lovaza, metoprolol, and simvastatin in addition to cilostazol. He will return for a follow up visit in the Vascular Diagnostic Clinic in six months to reassess hisperipheral arterial disease and intermittent claudication. Rest and exercise ankle pressures will beobtained at that time. I would also recommend obtaining a follow up renal ultrasound exam in six months for surveillance of his renal cyst. I will remain available to see him in the meantime if in yourjudgment the need arises. I have appreciated the opportunity to participate in the care of your patient, Mr. Anderson. TODAYS ORDERS 1. Vasc F/U With Dr Charlette M.D. 6 months 2. RY Exercise w/Seg Pressures+PVR 6 months 3. Renal Artery Doppler 6 months Raheem Ovalles M.D. documented in this encounter Plan of Treatment Upcoming Encounters Date Type Specialty Care Team Description 05/15/2022 Hospital Encounter Surgery Singh Torres MD [facility] [address] [place] [address] (Wo rk) 05/15/2022 Surgery Surgery Neo Torres MD BLEPHAROPLASTY BILATERAL [place] [facility], [facility] PTOSIS REPAIR BILATERAL [address] [place] [id number] (Wo rk) 06/25/2022 Ancillary Procedure Cardiology Kirk Silver MD [address] [place] [address] [...] on filedocumented in this encounter Care Teams Farmworker Fruit Relationship Specialty Start Date End Date [facility], [facility] PCP - General 08/21/11 05/13/12 [place] [address] [place], [place] [id number] Anatoliy Jackson MD PCP - General 05/14/12 Heath Tate, PCP - Internal Medicine INTERNAL MEDICINE - ENDOCRINOLOGY, [facility] [address] [place] [phone] Peter Gipson, PCP - Urology 04/02/15 MD [facility] [address] [place] [address] Peter Aguiar Assigned Heart and 06/01/20 12/15/20 MD [facility] Provider [address] [place] [address] Peter Mcmullen Assigned 06/01/20 MD [facility] [address] Provider [place], [place] [address] Fidencio Solis MD Assigned Heart and 12/16/20 02/21/[address], Vascular Provider [address] [place], [place] [address] Hallie Maldonado, Assigned Heart and 02/22/2105/18 AUTOMATIC DRILLING MACHINE OPERATOR TAPE FASTENER MACHINE OPERATOR Vascular Provider [address] [place], [place] [address] Giuliana Gomez Assigned Heart and 05/19/2106/15/21 A, AUTOMATIC DRILLING MACHINE OPERATOR TAPE FASTENER MACHINE OPERATOR Vascular Provider [address] [place], [place] [address] Fidencio Solis MD Assigned Heart and 06/16/21 06/29/[address], Vascular Provider [address] [place] [address] Giuliana Gomez Assigned Heart and 06/30/21 A, AUTOMATIC DRILLING MACHINE OPERATOR TAPE FASTENER MACHINE OPERATOR Vascular Provider [address] [place], [place] [address] Giuliana Gomez Nurse Practitioner Cardiovascular Disease 2 A, AUTOMATIC DRILLING MACHINE OPERATOR TAPE FASTENER MACHINE OPERATOR [address] [place], [place] [address] Fidencio Solis MD MD Cardiovascular Disease 08/21/[address], [address] [place], [place] [address] documented as of this encounter
--- OUTSIDE RECORDS SUMMARY | 2022-05-02 12:43 | XMS_ITS | Encounter Summary ---
:1950 Author Organization [place] Address [address] [facility] [address] Care Team Providers Name Role Phone Clinic, [facility] [place] Primary Care Provider [phone] Reason for Visit (Routine) - Closed Specialty Diagnoses / Procedures Referred By Contact Refer red To Contact Cardiology Diagnoses US RENAL ARTERY STENOSIS Procedure Notes: hypertensive heart disease unspecified Zz Sh Cardiolog y Img Procedures RADIOLOGY [address] [place] [address] Phone: Referral ID Status Reason Start Date Expiration Date Visits Requ ested Visits Authorized [id number] Closed 10/14/2011 10/13/2012 1 1 Encounter Details Date Type Department Care Team Description 10/16/2011 Hospital Encounter [place] Raheem Gordillo MD [facility] [address] [place] [address] Radiology - [facility] Heart Matthew Sterling MD [address] [place] [id number] Imaging [address] [place] [address] Social History Tobacco Use Types Packs/Day [...] [address] [place] [address] (Wo rk) 05/15/2022 Surgery Surgery Neo Torres MD BLEPHAROPLASTY BILATERAL [facility], INTERNAL & [facility] PTOSIS REPAIR BILATERAL [address] [place] [address] (Wo rk) 06/25/2022 Ancillary Procedure Cardiology Kirk Silver MD [address] [place] [address] (Wo rk) Scheduled Procedures Name Priority Associated [...] Diagnosis Comme nts US RENAL LIMITED Routine 10/16/2011 12:50 PM Resu lts for this WITH DOPPLER ROOM CLERK procedure are i n LIMITED the results section. documented in this encounter Results US Renal with doppler (10/16/2011 12:50 PM ROOM CLERK) Anatomical Region Laterality Modality Abdomen/Pelvis Other Specimen (Source) Anatomical Collection Method Collection Time Re ceived Time Location / / Volume Laterality 10/16/2011 12:50 PM ROOM CLERK Impressions 10/22/2011 12:[address] [facility] ?? RENAL ARTERY DUPLEX ULTRASOUND ?? Patient: Nikita Anderson Date: ??10/16/2011. : ??1950 Sex: ??Male Med Record #: [id number] Ordering: ??Raheem Ovalles MD ?? Primary: ??Andreas More MD Technologist: ??Nadia Gonzalez RDMS, RVT ? CLINICAL INDICATION: Hypertensive heart disease. ?? CONCLUSIONS: No significant renal artery stenosis. Right Renal Artery: The flow velocities in the right renal artery are within normal limits (less than 60% by D oppler). ? Left Renal Artery: The flow velocities i n the left renal artery are within normal limits (less than 60% by D oppler). ?? Atherosclerotic Plaque: No significant a therosclerotic plaque was visualized in the abdominal aorta. ? INCIDENTAL FINDING: Left renal cyst miguelito uring 1.4 x 1.2 x 1.5 cm in dimension. ?? COMPARISON: None. ?? Correlation with Clinical Indications: N o renal vascular disease identified to explain the patient's hype rtension. ? EXAM DESCRIPTION AND FINDINGS: A limited renal artery ultrasound was performed using duplex ultrasound imagin g with spectral and color Doppler. ?? Kidney Dimensions: ?? Right Kidney: 11.3 cm in length. Doppler waveforms in the right renal artery are within the usual range. ? Left Kidney: 12.1 cm in length. Doppler waveforms in the left renal artery demonstrate velocities within the usual range. ?? No differential in right and left kidney size. ?? Renal Artery Velocities: ? Right Duplex Values: Origin of renal artery peak systolic yohan ocity (PSV) is 82 cm/sec Proximal renal artery peak systolic [place] (PSV) is 105 cm/sec ?? Mid renal artery peak systolic velocity (PSV) is 112 cm/sec ?? Distal renal artery peak systolic veloci ty (PSV) is 71 cm/sec The right renal to aortic ratio is N/A. ?? Left Duplex Values: Origin of renal artery peak systolic yohan ocity (PSV) is 108 cm/sec Proximal renal artery peak systolic [place] (PSV) is 93 cm/sec ?? Mid renal artery peak systolic velocity (PSV) is 41 cm/sec ?? Distal renal artery peak systolic veloci ty (PSV) is 103 cm/sec The left renal to aortic ratio is N/A. ?? Right and left kidneys had Doppler wavef orms from the segmental arteries that were borderline for increa sed resistance suggesting some element of parenchymal disease. ?? Right Segmental Artery Resistive Index: Superior pole RI measured 0.81. Mid pole RI measured 0.80. Inferior pole RI measured 0.79. ?? Left Segmental Artery Resistive Index: Superior pole RI measured 0.77. Mid pole RI measured 0.77. Inferior pole RI measured 0.79. ?? Renal veins were patent bilaterally. ?? STUDY QUALITY: The study quality was exc ellent. Raheem Ovalles MD [facility] US ORDERABLES documented in this encounter Visit Diagnoses Not on filedocumented in this encounter Care Teams Cutting Machine Tender Relationship Specialty Start Date End Date Clinic, [facility] PCP - General 08/21/11 05/13/12 [address] [place] [address] documented as of this encounter
--- OUTSIDE RECORDS SUMMARY | 2022-05-02 12:43 | XMS_ITS | Encounter Summary ---
:1950 Author Organization [place] Address [address] [facility] [place] [address] Care Team Providers Name Role Phone Clinic, [facility] [place] Primary Care Provider [phone] Reason for Visit Auth/Cert - Closed Specialty Diagnoses / Procedures Referred By Contact Refer red To Contact Radiology [facility] [address] [place], [place] [address] Phone: Fax: Referral ID Status Reason Start Date Expiration Date Visits Requ ested Visits Authorized [id number] Closed 1 1 Encounter Details Date Type Department Care Team Description 05/04/2012 Hospital Encounter [facility] Charanjit MD [address] [place], [place] [facility] [address] [address] [phone] [address] [place] [address] (Wo rk) Social History Tobacco Use Types [...] this encounter Progress Notes Abstract, Provider - 05/07/2012 8:28 PM CDT documented in this encounter Plan of Treatment Upcoming Encounters Date Type Specialty Care Team Description 05/15/2022 Hospital Encounter Surgery Singh Torres MD [facility] [address] [place] [address] (Wo rk) 05/15/2022 Surgery Surgery Neo Torres MD BLEPHAROPLASTY BILATERAL [place] [facility], INTERNAL & [facility] PTOSIS REPAIR BILATERAL [address] [place] [phone] (Wo rk) 06/25/2022 Ancillary Procedure Cardiology Kirk Silver MD [address] [place] [phone] (Wo rk) Scheduled Procedures Name Priority Associated [...] Associated Diagnosis Comme nts BASIC METABOLIC Routine 05/04/2012 9:45 AM Result s for this PANEL CDT procedure are i n the results section. documented in this encounter Results (ABNORMAL) Basic metabolic panel (05/04/2012 9:45 AM CDT) Analysis Performed At Patho logist Time Signature Sodium 137 133 - 144 [place] mmol/L [facility] Potassium 4.1 3.4 - 5.3 [place] mmol/L [facility] Chloride 105 94 - 109 [place] mmol/L [facility] Carbon Dioxide 26 20 - 32 [place] mmol/L [facility] Anion Gap 6 6 - 17 [place] mmol/L [facility] Glucose 145 (H) 60 - 99 [place] mg/dL [facility] Urea Nitrogen 28 7 - 30 [place] mg/dL [facility] Creatinine 1.32 (H) 0.66 - [facility] 1.25 mg/dL [facility] GFR Estimate 55 (L) >60 [place] mL/min/1.[address] LAB GFR Estimate If 67 >60 [place] Black mL/min/1.7 [facility] m2 [facility] Calcium 9.1 8.5 - 10.4 [place] mg/dL [facility] Specimen Anatomical Collection Method Collection Time Receive d Time (Source) Location / / Volume Laterality 05/04/2012 9:45 AM 2 9:46 CDT AM CDT Charanjit Lopez MD LAB - BLOOD ORDERABLES Performing Organization Address City/State/ZIP Code Phon e Number M [facility] [address] [place], [place] [address] [facility] documented in this encounter Visit Diagnoses Not on filedocumented in this encounter Care Teams Manager Registration Relationship Specialty Start Date End Date Clinic, [facility] PCP - General 08/21/11 05/13/12 [address] [place] [address] documented as of this encounter
--- OUTSIDE RECORDS SUMMARY | 2022-05-02 12:43 | XMS_ITS | Encounter Summary ---
:1950 Author Organization [place] Address [address] [facility] [place] [address] Care Team Providers Name Role Phone Clinic, [facility] [place] Primary Care Provider [phone] Anatoliy Jackson MD Primary Care Provider Heath More MD Unavailable Peter Gipson MD Unavailable Encounter Details Date Type Department Care Team Description 05/04/2012 Historic Results [facility] Heart Unknown, [facility] ider Clinic [address] [place] [address] Social History [...] MD [facility] [address] [place] [address] (Wo rk) 05/15/2022 Surgery Surgery Neo Torres MD BLEPHAROPLASTY BILATERAL [place] [facility], INTERNAL & [facility] PTOSIS REPAIR BILATERAL [address] [place] [address] (Wo rk) 06/25/2022 Ancillary Procedure Cardiology Kirk Silver MD [address] [place] [address] (Wo rk) Scheduled Procedures Name Priority Associated [...] filedocumented in this encounter Care Teams Director Television News Relationship Specialty Start Date End Date Clinic, [place] PCP - General 08/21/11 05/13/12 [place] [address] [place], [place] [phone] Anatoliy Jackson MD PCP - General 05/14/12 Heath More, PCP - Internal Medicine INTERNAL MEDICINE - ENDOCRINOLOGY, [facility]OL[facility] [address] [place] [phone] Peter Gipson, PCP - Urology 04/02/15 [facility] [address] [address] documented as of this encounter
--- OUTSIDE RECORDS SUMMARY | 2022-05-02 12:43 | XMS_ITS | Encounter Summary ---
:1950 Author Organization [place] Address [address] [facility] [place] [address] Care Team Providers Name Role Phone Clinic, [facility] [place] Primary Care Provider [phone] Anatoliy Jackson MD Primary Care Provider Heath More MD Unavailable Peter Gipson MD Unavailable Encounter Details Date Type Department Care Team Description 08/25/2011 Historic Results [facility] Heart Unknown, [facility] ider Clinic [address] [place] [address] Social History [...] MD [facility] [address] [place] [address] (Wo rk) 05/15/2022 Surgery Surgery Neo Torres MD BLEPHAROPLASTY BILATERAL [place] [facility], INTERNAL & [facility] PTOSIS REPAIR BILATERAL [address] [place] [address] (Wo rk) 06/25/2022 Ancillary Procedure Cardiology Kirk Silver MD [address] [place] [address] (Wo rk) Scheduled Procedures Name Priority Associated [...] VASCULAR - HIM SCAN 08/25/2011 12:00 AM CUSHION FORMER - ARCHIVE documented in this encounter Results US VASCULAR - HIM SCAN - ARCHIVE (08/25/2011 12:00 AM CUSHION FORMER) Specimen (Source) Anatomical Location Collection Method / Collectio n Time Received Time / Laterality Volume 08/25/2011 Narrative This result has an attachment that is no t available. Provider Scan IMG US ORDERABLES documented in this encounter Visit Diagnoses Not on filedocumented in this encounter Care Teams Assembler Knife Relationship Specialty Start Date End Date [facility] [place] PCP - General 08/21/11 05/13/12 [place] [address] [place], [place] [phone] Anatoliy Jackson MD PCP - General 05/14/12 Heath More, PCP - Internal Medicine INTERNAL MEDICINE - ENDOCRINOLOGY, ENDOCRINE [facility]ABOLISM [address] [place] [phone] Peter Gipson, PCP - Urology 04/02/15 [facility] [address] [address] documented as of this encounter
--- OUTSIDE RECORDS SUMMARY | 2022-05-02 12:43 | XMS_ITS | Encounter Summary ---
:1950 Author Organization [place] Address [address] [facility] [place] [address] Care Team Providers Name Role Phone Clinic, Nickrobert [facility] Primary Care Provider [phone] Reason for Visit Auth/Cert - Closed Specialty Diagnoses / Procedures Referred By Contact Refer red To Contact Radiology [facility] [address] [place], [place] [address] Phone: Fax: Referral ID Status Reason Start Date Expiration Date Visits Requ ested Visits Authorized [id number] Closed 1 1 Encounter Details Date Type Department Care Team Description 05/04/2012 Hospital Encounter [facility] Charanjit Lopez MD [facility] [address] [place] [phone] IthacaHyacinth Soliman DO [address] [place] [address] [address] [place] [address] Social History Tobacco Use Types [...] this encounter Progress Notes Abstract, Provider - 05/04/2012 8:07 PM CDT documented in this encounter Plan of Treatment Upcoming Encounters Date Type Specialty Care Team Description 05/15/2022 Hospital Encounter Surgery Singh Torres MD [facility] [address] [place] [address] (Wo rk) 05/15/2022 Surgery Surgery Neo Torres MD BLEPHAROPLASTY BILATERAL [place] [facility] PTOSIS REPAIR BILATERAL [address] [place] [address] (Wo rk) 06/25/2022 Ancillary Procedure Cardiology Kirk Silver MD [address] [place] [address] (Wo rk) Scheduled Procedures Name Priority Associated [...] Diagnosis Comme nts NM MPI TREADMILL Routine 05/04/2012 1:12 PM Resul ts for this CDT procedure are i n the results section. documented in this encounter Results NM Mpi multi rest stress (05/04/2012 1:12 PM CDT) Anatomical Region Laterality Modality Chest Other Specimen (Source) Anatomical Collection Method Collection Time Re ceived Time Location / / Volume Laterality 05/04/2012 1:12 PM CDT Narrative 07/07/2012 5:08 PM HEAT TREATER HEAD NIKITA ANDERSON ? GATED MYOCARDIAL PERFUSION SCINTIGRAPHY WITH LEXISCAN ?? Done on 05/04/2012. ??Nikita Anderson is a [age]-year-old male. ?? 1950. ?? INDICATION: ??Assessment of myocardial perfusion in a patient with a history of chest pain and history of abn ormal stress test. ?? Indication for pharmacologic stress test ing was chest pain and history of abnormal stress test. ?? IMPRESSIONS: I ?? Lexiscan Test 1. ?? Lexiscan infusion dictated under s eparate cover. 2. ?? ECG report done under separate cov er. II ?? Myocardial Perfusion Scintigraphy 1. ? Myocardial perfusion using sing le isotope technique demonstrated a small partially reversibl e inferior wall defect. ?? There appears to be a small degree of in farction at the base of the inferior wall with mild gabbi-infarct isc hemia. ?? 2. ??Gating demonstrated mild left ventr icular chamber enlargement with an end-diastolic volume of 170 mL. ??The base of the inferior wall appears severely hypokinetic wherea s the remaining territories appear mildly hypokinetic. ?? 3. ??The ejection fraction was measured at 47% on post stress images and 48% at rest. ?? 4. ??Compared to the previous report, th ere may be no significant change in the extent of the suspected in ferior ischemia. ??The suggestion of basal inferior infarction would be a new finding, but the previous study was challenging for i nterpretation in this region due to bowel artifact. ??The current eduardo dy appears to be better in that regard. ??I have some concern about the patient's left ventricular enlargement and mild left ve ntricular dysfunction. ??This could be a finding suggestive of more ex tensive ischemia than what is identified on the study based on the sma ll defect. ??There does appear to be slight increase in chamber size wi th Lexiscan infusion, which can be a result of the Lexiscan infusion itself. ??The TID ratio was only 1.14, but visibly there does appear to be at least mild chamber enlargement on post stress images. ??Str ess MRI might be another consideration for evaluation of the exte nt of ischemia in this patient with known renal failure. ? RESTING TOMOGRAPHY: ??Following the inj ection of 11.0 mCi of technetium 99m sestamibi intravenously, gamma camera imaging was performed using 180* SPECT technique. ?? INTRAVENOUS LEXISCAN MONITORING PERIOD: ??Done under separate cover. ?? Lexiscan was administered at 0.08 mg/mL rapid bolus injection, for 10 seconds, 0.4 mg/5 mL intravenously. ??31 .5 mCi of technetium 99m sestamibi was injected intravenously 10- 20 seconds after Lexiscan and 5 mL saline flush. ?? ECG report done under separate cover. ?? Gamma camera imaging was performed late r using 180* SPECT technique. ?? TOMOGRAPHIC RESULTS: ??On the stress im ages, there is mild to moderate count depression involving the basal and mid inferior wall. ?? On the rest images, there is a bit more discrete mild count depression involving the base of the inf erior wall. ??Gated images demonstrated fairly severe basal inferio r hypokinesis with perhaps mild global hypokinesis as well and left ventricular chamber enlargement. ??End-diastolic volume is 1 70 mL. ??There is a little bit of dilation of the ventricle with stress visually, although the TID ratio was measured at only 1.14. Procedure Note Pacs, Data conversion - 07/07/2012Format ting of this note might be different from the original. NIKITA ANDERSON GATED MYOCARDIAL PERFUSION SCINTIGRAPHY WITH LEXISCAN Done on 05/04/2012. Nikita Anderson is a 61- year-old male. 1950. INDICATION: Assessment of myocardial pe rfusion in a patient with a history of chest pain and history of abn ormal stress test. Indication for pharmacologic stress test ing was chest pain and history of abnormal stress test. IMPRESSIONS: I Lexiscan Test 1. Lexiscan infusion dictated under sepa rate cover. 2. ECG report done under separate cover. II Myocardial Perfusion Scintigraphy 1. Myocardial perfusion using single iso yann technique demonstrated a small partially reversibl e inferior wall defect. There appears to be a small degree of in farction at the base of the inferior wall with mild gabbi-infarct isc hemia. 2. Gating demonstrated mild left ventric ular chamber enlargement with an end-diastolic volume of 170 mL. The base of the inferior wall appears severely hypokinetic wherea s the remaining territories appear mildly hypokinetic. 3. The ejection fraction was measured at 47% on post stress images and 48% at rest. 4. Compared to the previous report, ther e may be no significant change in the extent of the suspected in ferior ischemia. The suggestion of basal inferior infarction would be a new finding, but the previous study was challenging for i nterpretation in this region due to bowel artifact. The current study appears to be better in that regard. I have some concern about t he patient's left ventricular enlargement and mild left ve ntricular dysfunction. This could be a finding suggestive of more ex tensive ischemia than what is identified on the study based on the sma ll defect. There does appear to be slight increase in chamber size wi th Lexiscan infusion, which can be a result of the Lexiscan infusion itself. The TID ratio was only 1.14, but visibly there does appear to be at least mild chamber enlargement on post stress images. Stres s MRI might be another consideration for evaluation of the exte nt of ischemia in this patient with known renal failure. RESTING TOMOGRAPHY: Following the injec tion of 11.0 mCi of technetium 99m sestamibi intravenously, gamma camera imaging was performed using 180* SPECT technique. INTRAVENOUS LEXISCAN MONITORING PERIOD: Done under separate cover. Lexiscan was administered at 0.08 mg/mL rapid bolus injection, for 10 seconds, 0.4 mg/5 mL intravenously. 31.5 mCi of technetium 99m sestamibi was injected intravenously 10- 20 seconds after Lexiscan and 5 mL saline flush. ECG report done under separate cover. Gamma camera imaging was performed late r using 180* SPECT technique. TOMOGRAPHIC RESULTS: On the stress imag es, there is mild to moderate count depression involving the basal and mid inferior wall. On the rest images, there is a bit more discrete mild count depression involving the base of the inf erior wall. Gated images demonstrated fairly severe basal inferio r hypokinesis with perhaps mild global hypokinesis as well and left ventricular chamber enlargement. End-diastolic volume is 170 mL. There is a little bit of dilation of the ventricle with stress visually, although the TID ratio was measured at only 1.14. Hyacinth Plummer DO IMG NM ORDERABLES documented in this encounter Visit Diagnoses Not on filedocumented in this encounter Care Teams Operations Developer Relationship Specialty Start Date End Date Clinic, Bandar Richards PCP - General 08/21/11 05/13/12 [address] [place] [address] documented as of this encounter
--- OUTSIDE RECORDS SUMMARY | 2022-05-02 12:43 | XMS_ITS | Encounter Summary ---
:1950 Author Organization [place] Address [address] [facility] [place] [address] Care Team Providers Name Role Phone Clinic, Nickrobert Magallonton Primary Care Provider [phone] Reason for Visit (Routine) - Closed Specialty Diagnoses / Procedures Referred By Contact Refer red To Contact Cardiology Diagnoses US ART LOW EXT BASHIR- LEMUEL Procedure Notes: Intermittent claudication Zz Cardiology Img Procedures RADIOLOGY [address] [place] [address] Phone: Referral ID Status Reason Start Date Expiration Date Visits Requ ested Visits Authorized [id number] Closed 08/21/2011 08/20/2012 1 1 Encounter Details Date Type Department Care Team Description 08/25/2011 Hospital Encounter [place] Heath Goodrich MD [facility] [place] [id number] [place] [phone] Radiology - [facility] Heart Raheem Ovalles MD [facility] [address] [place] [address] Imaging [address] [place] [address] Social History Tobacco Use Types Packs/Day [...] [address] [place] [address] (Wo rk) 05/15/2022 Surgery Surgery Neo Torres MD BLEPHAROPLASTY BILATERAL [facility] PTOSIS REPAIR BILATERAL [address] [place] [address] (Wo rk) 06/25/2022 Ancillary Procedure Cardiology Kirk Silver MD [address] [place] [address] (Wo rk) Scheduled Procedures Name Priority Associated [...] Priority Date/Time Associated Diagnosis Comme nts VUS ART LOW EXT BASHIR Routine 08/25/2011 4:02 PM Re sults for this ACCOUNTING METHODS ANALYST procedure are i n the results section. documented in this encounter Results US art low ext bashir (vascular lab) (08/25/2011 4:02 PM ACCOUNTING METHODS ANALYST) Anatomical Region Laterality Modality Other Specimen (Source) Anatomical Collection Method Collection Time Re ceived Time Location / / Volume Laterality 08/25/2011 4:02 PM ACCOUNTING METHODS ANALYST Impressions 08/28/2011 8:58 AM ACCOUNTING METHODS ANALYST [facility] ?? BILATERAL LOWER EXTREMITY ARTERIAL DUPLE X ULTRASOUND LOWER EXTREMITY ARTERIAL PRESSURES AND W AVEFORMS ?? Patient: ??Nikita Anderson ?? Date: ??08/25/2011 : ??1950 Sex: ??Male Med Record #: ??[id number] Ordering: ??Raheem Ovalles MD ?? Primary: ??Andreas More MD ?? Technologist: ??Nadia Gonzalez RDMS RVT ? CLINICAL INDICATION: ??Claudication, int ermittent. ?? CONCLUSION: ??No significant obstructive peripheral arterial disease seen bilaterally. ? Mild, nonobstructive heterogeneous plaqu e was visualized in the lower extremity arterial system. ??Waveforms w ere normal biphasic and triphasic without elevation of velocitie s suggesting no significant obstruction. ? On this study, the femoral arterial syst em as well as popliteal, anterior and posterior tibial, as well a s dorsalis pedis arteries were visualized. ? EXAM DESCRIPTION AND FINDINGS: ??A bilat eral lower extremity noninvasive arterial ultrasound was perf ormed using duplex imaging with spectral and color Doppler. ?? Ankle Brachial Index (RY): ??RY at res t was normal (right 1.12, left 1.10). ? Right-sided Velocities: RT CLIENT STRATEGIST peak systolic velocity (PSV) is 1 14 cm/sec ?? RT DFA peak systolic velocity (PSV) is 7 7 cm/sec RT SFA peak systolic velocity (PSV) is 1 22 cm/sec ? RT POP peak systolic velocity (PSV) is 7 1 cm/sec ? RT ANT. TIB TAKE OFF peak systolic veloc ity (PSV) is 48 cm/sec RT TIB/PER TRUNK peak systolic velocity (PSV) is 64 cm/sec ? RT CLUB ROOM ATTENDANT peak systolic velocity (PSV) is 8 7 cm/sec RT DPA peak systolic velocity (PSV) is 3 5 cm/sec ?? Left-sided Velocities: LT CLIENT STRATEGIST peak systolic velocity (PSV) is 1 15 cm/sec LT DFA peak systolic velocity (PSV) is 7 6 cm/sec LT SFA peak systolic velocity (PSV) is 1 39 cm/sec ? LT POP peak systolic velocity (PSV) is 7 6 cm/sec ? LT ANT. TIB TAKE OFF peak systolic veloc ity (PSV) is 52 cm/sec LT TIB/PER TRUNK peak systolic velocity (PSV) is 68 cm/sec ?? LT CLUB ROOM ATTENDANT peak systolic velocity (PSV) is 5 5 cm/sec LT DPA peak systolic velocity (PSV) is 6 6 cm/sec ? STUDY QUALITY: ??The study quality was e xcellent. ?? Raheem Ovalles MD [facility] ORDERABLES documented in this encounter Visit Diagnoses Not on filedocumented in this encounter Care Teams Turning Sander Tender Relationship Specialty Start Date End Date Clinic, Bandar Richards PCP - General 08/21/11 05/13/12 [address] [place] [address] documented as of this encounter
--- OUTSIDE RECORDS SUMMARY | 2022-05-02 12:43 | XMS_ITS | Encounter Summary ---
:1950 Author Organization [place] Address [address] [place] [address] Care Team Providers Name Role Phone Roberto Linder MD Primary Care Provider [facility], Bandar [place] Primary Care Provider [phone] Anatoliy Jackson MD Primary Care Provider Heath More MD Unavailable Peter Gipson MD Unavailable Encounter Details Date Type Department Care Team Description 01/22/2011 Historic Results [facility] Heart Unknown, [place] [id number] [facility] [address] [place] [address] Social History [...] MD [facility] [address] [facility] [address] [place] [address] (Wo rk) 05/15/2022 Surgery Surgery Neo Torres MD BLEPHAROPLASTY BILATERAL [place] [facility] PTOSIS REPAIR BILATERAL [address] [place] [address] (Wo rk) 06/25/2022 Ancillary Procedure Cardiology Kirk Silver MD [address] [place] [address] (Wo rk) Scheduled Procedures Name Priority Associated [...] Diagnosis Comme nts NUCLEAR CARDIAC - HIM 01/22/2011 12:00 AM CDT SCAN - ARCHIVE documented in this encounter Results NUCLEAR CARDIAC - HIM SCAN - ARCHIVE (01/22/2011 12:00 AM CDT) Specimen (Source) Anatomical Location Collection Method / Collectio n Time Received Time / Laterality Volume 01/22/2011 Narrative This result has an attachment that is no t available. Provider Scan IMG NM ORDERABLES documented in this encounter Visit Diagnoses Not on filedocumented in this encounter Care Teams Deaf/Hard Of Hearing Specialist Relationship Specialty Start Date End Date Roberto Linder MD PCP - General 12/29/02 08/20/[address] [place] [address] Bandar Siddiqi PCP - General 08/21/11 05/13/12 [place] [address] [place] [address] Anatoliy Jackson MD PCP - General 05/14/12 Heath More, PCP - Internal Medicine INTERNAL MEDICINE - ENDOCRINOLOGY, [facility] [address] [facility] [address] [place] [phone] Peter Gipson, PCP - Urology 04/02/15 [facility] [address] [place] [address] documented as of this encounter
--- OUTSIDE RECORDS SUMMARY | 2022-05-02 12:43 | XMS_ITS | Encounter Summary ---
:1950 Author Organization [place] Address [address] [place] [address] Care Team Providers Name Role Phone Clinic, Nickrobert Magallonton Primary Care Provider [phone] Encounter Details Date Type Department Care Team Description 10/01/2011 [facility] Only [facility] Hinnenkamp, ERRONEOUS [place] [facility] Susie Shadia ENCOUNTER--DISREGARD [address] (Primary Dx) [place], [place] [phone] Social History Tobacco Use Types Packs/Day Years [...] [address] [place] [address] (Wo rk) 05/15/2022 Surgery Surgery Neo Torres MD BLEPHAROPLASTY BILATERAL [place] [facility], [facility] PTOSIS REPAIR BILATERAL [address] [place] [address] (Wo rk) 06/25/2022 Ancillary Procedure Cardiology Kirk Silver MD [address] [place] [address] (Wo rk) Scheduled Procedures Name Priority Associated Diagnoses Date/Time REPAIR, PTOSIS, BILATERAL, Dermatochalas is 05/15/2022 7:30 AM CDT WITH BILATERAL BLEPHAROPLASTY 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
--- OUTSIDE RECORDS SUMMARY | 2022-05-02 12:43 | XMS_ITS | Encounter Summary ---
:1950 Author Organization [place] Address [address] [facility] [address] Care Team Providers Name Role Phone Clinic, Bandar Magallonton Primary Care Provider Reason for Visit Auth/Cert - Closed Specialty Diagnoses / Procedures Referred By Contact Refer red To Contact Radiology [facility] [address] [place], [place] [address] Phone: Fax: Referral ID Status Reason Start Date Expiration Date Visits Requ ested Visits Authorized [id number] Closed 1 1 Encounter Details Date Type Department Care Team Description 05/04/2012 [facility] [place] [address] [place], [place] [facility] [address] [address] [phone] [address] [place] [address] (Wo rk) Social History Tobacco [...] Abstract, Provider - 05/04/2012 8:07 PM CDT Palmira Anand RN - 05/04/2012 11:58 AM CDT Here for lexiscan nuclear stress test - lungs clear. documented in this encounter Plan of Treatment Upcoming Encounters Date Type Specialty Care Team Description 05/15/2022 Hospital Encounter Surgery Singh Torres MD [facility] [address] [place] [address] (Wo rk) 05/15/2022 Surgery Surgery Neo Torres MD BLEPHAROPLASTY BILATERAL [facility], [facility] PTOSIS REPAIR BILATERAL [address] [place] [address] (Wo rk) 06/25/2022 Ancillary Procedure Cardiology Kirk Silver MD [address] [place] [address] (Wo rk) Scheduled Procedures Name Priority Associated [...] Name Priority Date/Time Associated Diagnosis Comme nts ZZ STRESS LEXISCAN Routine 05/04/2012 11:55 AM Re sults for this TEST CDT procedure are i n the results section. documented in this encounter Results Stress lexiscan test (05/04/2012 11:55 AM CDT) Component Value Ref Test Analysis Performed At [facility] Method Time Signature IMAGECAST RADIOLOGY RESULT NIKITA LIND RESULTS ? EKG PORTION OF MYOCARDIAL PERFUSION STRESS TEST ?? CLINICAL DIAGNOSIS: ??Abnormal function. ?? FINDINGS: ?? Resting EKG: ??Normal sinus rhythm, normal EKG, nonspecific ST abnormalities. ?? The patient was stressed with a walking Lexiscan protocol. ? ?The patient developed lightheadedness but no shortness of breath or chest pain. ??There were no significant EKG changes and no dysrhyt hmias noted. ?? CONCLUSIONS: 1. ??The patient was stressed with a walking Lexiscan protoc ol. 2. ??The patient developed symptoms of lightheadedness but n o chest pain or shortness of breath. 3. ??No significant EKG changes with stress. 4. ??No significant dysrhythmias noted. 5. ??Myocardial perfusion results pending and reported under separate cover. Specimen (Source) Anatomical Collection Method Collection Time Re ceived Time Location / / Volume Laterality 05/04/2012 11:55 AM CDT Hyacinth Kiara Plummer DO [facility] ORDER [place] Performing Organization Address City/State/ZIP Code Phon e Number RADIOLOGY RESULTS documented in this encounter Visit Diagnoses Not on filedocumented in this encounter Administered Medications Inactive Administered Medications - up to 3 most recent administrations Medication Order MAR Action Action Date Dose Rate Site regadenoson (LEXISCAN) 0.4 MG/5ML inject ion Starting on Thu05/04/12 at 1151, For 1 dose, PALMIRA ANAND: cabinet override regadenoson (LEXISCAN) injection 0.4 mg Given 05/04/2012 11:58 AM CDT 0.4 mg 0.4 mg, Intravenous, ONCE, On Thu05/04/12 at 1200, For 1 dose documented in this encounter Care Teams Director Sales Support Relationship Specialty Start Date End Date Clinic, Bandar Richards PCP - General 08/21/11 05/13/12 [address] [place], [place] [id number] documented as of this encounter
--- OUTSIDE RECORDS SUMMARY | 2022-05-02 12:44 | XMS_ITS | Encounter Summary ---
:1950 Author Organization [place] Address [address] [facility] [place] [address] Care Team Providers Name Role Phone Roberto Linder MD Primary Care Provider Encounter Details Date Type Department Care Team Description 12/24/2004 Results Only [facility] Heath More, Hospital Results MD [facility] [address] [place] [address] (Wo rk) Social History Tobacco Use [...] [address] [place] [address] (Wo rk) 05/15/2022 Surgery Surgery Neo Torres MD BLEPHAROPLASTY BILATERAL [place] [facility], INTERNAL & [facility] PTOSIS REPAIR BILATERAL [address] [place] [address] (Wo rk) 06/25/2022 Ancillary Procedure Cardiology Kirk Silver MD [address] [place] [address] (Wo rk) Scheduled Procedures Name Priority Associated [...] Name Priority Date/Time Associated Diagnosis Comme nts HC US Routine 12/24/2004 10:57 AM Results for this RETROPERITONEAL, CDT procedure a re in COMPLETE the results section. documented in this encounter Results SONO RETROPERITONEAL (12/24/2004 10:57 AM CDT) Specimen (Source) Anatomical Collection Method Collection Time Re ceived Time Location / / Volume Laterality 12/24/2004 10:57 AM CDT Impressions RADIOLOGY RESULTS - 12/24/2004 4:31 PM C DT ULTRASOUND OF THE KIDNEYS ?? HISTORY: ??Increased blood pressure. ? FINDINGS: ??Normal kidneys. ??No hydrone phrosis, stones or abnormalities. J Andreas More MD SPECIAL IMAGING STUDIES Performing Organization Address City/State/ZIP Code Phon e Number RADIOLOGY RESULTS documented in this encounter Visit Diagnoses Not on filedocumented in this encounter Care Teams Hand Woven Carpet And Rug Mender Relationship Specialty Start Date End Date Roberto Linder MD PCP - General 12/29/02 08/20/[address] [place] [address] documented as of this encounter
--- OUTSIDE RECORDS SUMMARY | 2022-05-02 12:44 | XMS_ITS | Encounter Summary ---
:1950 Author Organization [place] Address [address] [facility] [place] [address] Care Team Providers Name Role Phone Roberto Linder MD Primary Care Provider Reason for Visit Reason Onset Date Comments Diabetes 02/03/2005 follow up call Encounter Details Date Type Department Care Team Description 02/03/2005 Telephone [facility] Roberto Linder MD Diabetes (follow up Clinic [place] [address] [facility] call) [address] [place], [place] [phone] Social History Tobacco Use Types Packs/Day Years Used Date Never Smoker Alcohol Use Standard Drinks/Week Comments Yes 0 (1 standard drink = 0.6 oz pure alcoho l) occasionally Sex Assigned at Date Recorded Male 03/12/2021 12:11 PM CDT documented as of this encounter Miscellaneous Notes Telephone Encounter - Krystal Sewell - 02/03/2005 10:03 AM CDT pt called for follow up. he has been seen by Dr More and is receiving diabetic education thru that clinic. documented in this encounter Plan of Treatment Upcoming Encounters Date Type Specialty Care Team Description 05/15/2022 Hospital Encounter Surgery Singh Torres MD [facility] [address] [place] [address] (Wo rk) 05/15/2022 Surgery Surgery Neo Torres MD BLEPHAROPLASTY BILATERAL [facility] PTOSIS REPAIR BILATERAL [address] [place] [address] (Wo rk) 06/25/2022 Ancillary Procedure Cardiology Kirk Silver MD [address] [place] [id number] (Wo rk) Scheduled Procedures Name Priority Associated [...] on filedocumented in this encounter Care Teams Algorithm Design Engineer Relationship Specialty Start Date End Date Roberto Linder MD PCP - General 12/29/02 08/20/11 [address] [facility] 160 [place] [address] documented as of this encounter
--- OUTSIDE RECORDS SUMMARY | 2022-05-02 12:44 | XMS_ITS | Encounter Summary ---
:1950 Author Organization [place] Address [address] [facility] [place] [address] Care Team Providers Name Role Phone Roberto Linder MD Primary Care Provider Encounter Details Date Type Department Care Team Description 04/06/2007 Therapy Visit [place] for Katrin Yoder PT PAIN IN LIMB (Primary [facility] - [facility] ) [facility] [address] [place] [address] [phone] Social History Tobacco Use Types Packs/Day Years Used Date Never Smoker Alcohol Use Standard Drinks/Week Comments Yes 0 (1 standard drink = 0.6 oz pure alcoho l) occasionally Sex Assigned at Date Recorded Male 03/12/2021 12:11 PM CDT documented as of this encounter Progress Notes Katrin Yoder - 04/27/2007 12:31 PM CDT Addended by: KATRIN YODER on: 04/27/2007 12:31:56 PM Modules accepted: Orders Katrin Yoder - 04/27/2007 12:31 PM CDT Please refer to the discharge evaluation. Katrin Yoder - 04/06/2007 8:01 AM CDT Please refer to the daily flowsheet for treatment today and total treatment time. Does this patient have Medicare or Medicaid as primary or secondary insurance? NO documented in this encounter Plan of Treatment Upcoming Encounters Date Type Specialty Care Team Description 05/15/2022 Hospital Encounter Surgery Singh Torres MD [facility] [address] [place] [address] (Wo rk) 05/15/2022 Surgery Surgery Neo Torres MD BLEPHAROPLASTY BILATERAL [facility] PTOSIS REPAIR BILATERAL [address] [place], [place] [address] (Wo rk) 06/25/2022 Ancillary Procedure Cardiology Kirk Silver MD [address] [place], [place] [address] (Wo rk) Scheduled Procedures Name Priority Associated [...] Name Priority Date/Time Associated Diagnosis Comme nts ZC MANUAL THER Routine 04/06/2007 8:29 AM CDT Pain In Limb TECH,1+REGIONS,EA 15 MIN Z ULTRASOUND THERAPY Routine 04/06/2007 8:29 AM CDT Pain In Limb documented in this encounter Visit Diagnoses Diagnosis Pain in limb - Primary 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
--- OUTSIDE RECORDS SUMMARY | 2022-05-02 12:44 | XMS_ITS | Encounter Summary ---
:1950 Author Organization [place] Address [address] [facility] [place] [address] Care Team Providers Name Role Phone Roberto Linder MD Primary Care Provider Encounter Details Date Type Department Care Team Description 04/01/2007 Therapy Visit [place] for Katrin Yoder PT PAIN IN LIMB (Primary [facility] - [facility] ) [facility] [address] [place] [phone] Social History Tobacco Use Types Packs/Day Years Used Date Never Smoker Alcohol Use Standard Drinks/Week Comments Yes 0 (1 standard drink = 0.6 oz pure alcoho l) occasionally Sex Assigned at Date Recorded Male 03/12/2021 12:11 PM CDT documented as of this encounter Progress Notes Katrin Yoder - 04/01/2007 8:00 AM CDT Please refer to the daily [...] [address] [place] [address] (Wo rk) 05/15/2022 Surgery Surgery Neo Torres MD BLEPHAROPLASTY BILATERAL [facility] PTOSIS REPAIR BILATERAL [address] [place] [address] (Wo rk) 06/25/2022 Ancillary Procedure Cardiology Kirk Silver MD [address] [place] [address] (Wo rk) Scheduled Procedures Name Priority Associated [...] Name Priority Date/Time Associated Diagnosis Comme nts [facility] MANUAL THER Routine 04/01/2007 8:35 AM CDT Pain In Limb TECH,1+REGIONS,EA 15 MIN ZZC THERAPEUTIC Routine 04/01/2007 8:35 AM CDT Pain In Limb ACTIVITIES ZZ THERAPEUTIC Routine 04/01/2007 8:35 AM CDT Pain In Limb EXERCISES documented in this encounter Visit Diagnoses Diagnosis Pain in limb - Primary 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
--- OUTSIDE RECORDS SUMMARY | 2022-05-02 12:44 | XMS_ITS | Encounter Summary ---
:1950 Author Organization [place] Address [address] [facility] [place] [address] Care Team Providers Name Role Phone Roberto Linder MD Primary Care Provider Reason for Visit Reason Onset Date Comments Refill Request 06/22/2006 one touch ultra stri pts Encounter Details Date Type Department Care Team Description 06/22/2006 Refill [facility] Roberto Linder MD Refill Request (one [facility] [place] [address] touch ultra stripts) [address] [place], [place] [phone] Social History Tobacco Use Types Packs/Day Years Used Date Never Smoker Alcohol Use Standard Drinks/Week Comments Yes 0 (1 standard drink = 0.6 oz pure alcoho l) occasionally Sex Assigned at Date Recorded Male 03/12/2021 12:11 PM CDT documented as of this encounter Miscellaneous Notes Telephone Encounter - Michelle Ramirez - 06/22/2006 9:28 AM CST Pharm RF request for One Touch Ultra test strips. Last OV 10/03/04. Last A1C on record 8.1 04/22/05. Left message with pt's requesting pt call back; will advise MD appt with fasting labs done prior to MD appt. (pt has seen endocrinology in past but most recent record of A1C per Endocrinology is 10/12, A1C 10.7 at that time. 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 documented in this encounter Plan of Treatment Upcoming Encounters Date Type Specialty Care Team Description 05/15/2022 Hospital Encounter Surgery Singh Torres MD [facility] [address] [place] [address] (Wo rk) 05/15/2022 Surgery Surgery Neo Torres MD BLEPHAROPLASTY BILATERAL [facility] PTOSIS REPAIR BILATERAL [address] [place] [address] (Wo rk) 06/25/2022 Ancillary Procedure Cardiology Kirk Silver MD [address] [place] [id number] (Wo rk) Scheduled Procedures Name Priority Associated Diagnoses Date/Time REPAIR, PTOSIS, BILATERAL, Dermatochalas is 05/15/2022 7:30 AM CDT WITH BILATERAL BLEPHAROPLASTY 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 REPAIR, ECTROPION, EYE, Dermatochalasis 05/15/2022 7:30 AM CDT BILATERAL 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 documented as of this encounter Visit Diagnoses Diagnosis Unspecified essential hypertension DIABETES UNCOMPL ADULT-TYPE II Type II or unspecified 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
--- OUTSIDE RECORDS SUMMARY | 2022-05-02 12:44 | XMS_ITS | Encounter Summary ---
:1950 Author Organization [place] Address [address] [facility] [place] [address] Care Team Providers Name Role Phone Carmel Linder MD Primary Care Provider Reason for Visit Reason Onset Date Comments Refill Request 08/27/2004 humalog Encounter Details Date Type Department Care Team Description 08/27/2004 Refill [facility] Carmel Linder MD Refill Request Clinic [place] [address] (humalog) [address] [place], [place] [phone] Social History Tobacco Use Types Packs/Day Years Used Date Never Smoker Alcohol Use Standard Drinks/Week Comments No 0 (1 standard drink = 0.6 oz pure alcoho l) Sex Assigned at Date Recorded Male 03/12/2021 12:11 PM CDT documented as of this encounter Miscellaneous Notes Telephone Encounter - 08/27/2004 10:49 AM 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 Faxed refill x one month. Please call pt--needs appt. >> ALEJANDRO La Aug 27, 2004 10:51 AM last fill 12/6/04. unable to fill med per S.O. protocol due to last HgbA1c above 7.0. thanks documented in this encounter Plan of Treatment Upcoming Encounters Date Type Specialty Care Team Description 05/15/2022 Hospital Encounter Surgery Singh Torres MD [facility] [address] [place] [address] (Wo rk) 05/15/2022 Surgery Surgery Neo Torres MD BLEPHAROPLASTY BILATERAL [facility] PTOSIS REPAIR BILATERAL [address] [place] [address] (Wo rk) 06/25/2022 Ancillary Procedure Cardiology Kirk Silver MD [address] [place] [address] (Wo rk) Scheduled Procedures Name Priority Associated Diagnoses Date/Time REPAIR, PTOSIS, BILATERAL, Dermatochalas is 05/15/2022 7:30 AM CDT WITH BILATERAL BLEPHAROPLASTY 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 REPAIR, ECTROPION, EYE, Dermatochalasis 05/15/2022 7:30 AM CDT BILATERAL 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 documented as of this encounter Visit Diagnoses Diagnosis 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
--- OUTSIDE RECORDS SUMMARY | 2022-05-02 12:44 | XMS_ITS | Encounter Summary ---
:1950 Author Organization [place] Address [address] [facility] [place] [address] Care Team Providers Name Role Phone Roberto Linder MD Primary Care Provider Reason for Visit Reason Onset Date Comments Refill Request 04/23/2006 viagra Encounter Details Date Type Department Care Team Description 04/23/2006 Refill [facility] Roberto Linder MD Refill Request (viagra) Clinic [place] [address] [facility] [address] [facility] [address] [place], [place] [phone] Social History Tobacco Use Types Packs/Day Years Used Date Never Smoker Alcohol Use Standard Drinks/Week Comments Yes 0 (1 standard drink = 0.6 oz pure alcoho l) occasionally Sex Assigned at Date Recorded Male 03/12/2021 12:11 PM CDT documented as of this encounter Miscellaneous Notes Telephone Encounter - Tiffany Grossman - 04/23/2006 12:00 PM CDT Last filled 01/05/05. Last OV 09/13/[address] Linder on 07/10/06 to make appt. Advised pt tomake appt prior to refills. documented in this encounter Plan of Treatment Upcoming Encounters Date Type Specialty Care Team Description 05/15/2022 Hospital Encounter Surgery Singh Torres MD [facility] [address] [place] [address] (Wo rk) 05/15/2022 Surgery Surgery Neo Torres MD BLEPHAROPLASTY BILATERAL [facility] PTOSIS REPAIR BILATERAL [address] [place] [address] (Wo rk) 06/25/2022 Ancillary Procedure Cardiology Kirk Silver MD [address] [place] [address] (Wo rk) Scheduled Procedures Name Priority Associated [...] on filedocumented in this encounter Care Teams Wall Insulation Sprayer Relationship Specialty Start Date End Date Roberto Linder MD PCP - General 12/29/02 08/20/11 [address] [facility] [address] [place], [place] [address] documented as of this encounter
--- OUTSIDE RECORDS SUMMARY | 2022-05-02 12:44 | XMS_ITS | Encounter Summary ---
:1950 Author Organization [place] Address [address] [facility] [place] [address] Care Team Providers Name Role Phone Carmel Linder MD Primary Care Provider Reason for Visit Reason Onset Date Comments Orders 09/12/2004 Encounter Details Date Type Department Care Team Description 09/12/2004 Telephone [facility] Carmel Linder MD Orders [place] [address] [facility] [address] [place] [address] [place] [address] [phone] Social History Tobacco Use Types Packs/Day Years Used Date Never Smoker Alcohol Use Standard Drinks/Week Comments No 0 (1 standard drink = 0.6 oz pure alcoho l) Sex Assigned at Date Recorded Male 03/12/2021 12:11 PM CDT documented as of this encounter Miscellaneous Notes Telephone Encounter - 09/12/2004 9:13 AM 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 Please advise pt. >> LIANA MUÑIZ Leana Sep 12, 2004 9:15 AM PT. HAS F/U DIABETES APPT. 10/03/04. REQUESTS TO HAVE LABS PRIOR TO APPT. HAS ALREADY SCHEDULED LAB APPT. FOR 09/25/04. ORDERS? documented in this encounter Plan of Treatment Upcoming Encounters Date Type Specialty Care Team Description 05/15/2022 Hospital Encounter Surgery Singh Torres MD [facility] [address] [place] [address] (Wo rk) 05/15/2022 Surgery Surgery Neo Torres MD BLEPHAROPLASTY BILATERAL [facility] PTOSIS REPAIR BILATERAL [address] [place] [address] (Wo rk) 06/25/2022 Ancillary Procedure Cardiology Kirk Silver MD [address] [place] [address] (Wo rk) Scheduled Procedures Name Priority Associated Diagnoses Date/Time REPAIR, PTOSIS, BILATERAL, Dermatochalas is 05/15/2022 7:30 AM CDT WITH BILATERAL BLEPHAROPLASTY 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 REPAIR, ECTROPION, EYE, Dermatochalasis 05/15/2022 7:30 AM CDT BILATERAL 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 documented as of this encounter Visit Diagnoses Diagnosis DIABETES UNCOMPL ADULT-TYPE II 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
--- OUTSIDE RECORDS SUMMARY | 2022-05-02 12:44 | XMS_ITS | Encounter Summary ---
:1950 Author Organization [place] Address [address] [facility] [place] [address] Care Team Providers Name Role Phone Roberto Linder MD Primary Care Provider Encounter Details Date Type Department Care Team Description 01/20/2005 Abstract [facility], [facility] f rom Endocrinology Clinic [facility] [address] [place] [address] Social History Tobacco Use Types [...] [address] [place] [address] (Wo rk) 05/15/2022 Surgery Surgery Neo Torres MD BLEPHAROPLASTY BILATERAL [place] [facility] PTOSIS REPAIR BILATERAL [address] [place] [address] (Wo rk) 06/25/2022 Ancillary Procedure Cardiology Kirk Silver MD [address] [place] [address] (Wo rk) Scheduled Procedures Name Priority Associated [...] Priority Date/Time Associated Diagnosis Comme nts HCL LDL-CHOLESTEROL Routine 01/20/2005 DIAGNOSIS NOT YET Res ults for this DEFINED procedure are i n the results section . HCL TRIGLYCERIDES Routine 01/20/2005 DIAGNOSIS NOT YET Resul ts for this DEFINED procedure are i n the results section . HCL ALT Routine 01/20/2005 DIAGNOSIS NOT YET Results fo r this DEFINED procedure are i n the results section . HCL HDL CHOLESTEROL Routine 01/20/2005 DIAGNOSIS NOT YET Res ults for this DEFINED procedure are i n the results section . HCL CHOLESTEROL Routine 01/20/2005 DIAGNOSIS NOT YET Results for this DEFINED procedure are i n the results section . documented in this encounter Results TRIGLYCERIDES [37558.000] (01/20/2005) P athologist Signature Triglycerides 68@ mg/dL [facility] Performing Organization Address City/[facility]/ZIP Code Phon e Number [facility] HDL CHOLESTEROL [59701.000] (01/20/2005) P athologist Signature HDL Cholesterol 42@ mg/dL [facility] Performing Organization Address City/State/ZIP Code Phon e Number [facility] LDL-CHOLESTEROL [75543.001] (01/20/2005) P athologist Signature LDL Cholesterol 70@ [facility] Calculated [facility] Performing Organization Address City/State/ZIP Code Phon e Number [facility] CHOLESTEROL [59302.000] (01/20/2005) P athologist Signature Cholesterol 126@ 115 - 199 [facility] mg/dL [facility] Performing Organization Address City/State/ZIP Code Phon e Number [facility] ALT [42376.000] (01/20/2005) P athologist Signature ALT 23@ U/L [facility] Performing Organization Address City/State/ZIP Code Phon e Number M[facility] documented in this encounter Visit Diagnoses Diagnosis DIAGNOSIS NOT YET DEFINED - Primary 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
--- OUTSIDE RECORDS SUMMARY | 2022-05-02 12:44 | XMS_ITS | Encounter Summary ---
:1950 Author Organization [place] Address [address] [facility] [place] [address] Care Team Providers Name Role Phone Roberto Linder MD Primary Care Provider Reason for Visit Reason Onset Date Comments Refill Request 01/07/2005 benicar Encounter Details Date Type Department Care Team Description 01/07/2005 Refill [facility] Roberto Linder MD Refill Request Clinic [place] [address] (benicar) [address] [place], [place] [phone] Social History Tobacco Use Types Packs/Day Years Used Date Never Smoker Alcohol Use Standard Drinks/Week Comments Yes 0 (1 standard drink = 0.6 oz pure alcoho l) occasionally Sex Assigned at Date Recorded Male 03/12/2021 12:11 PM CDT documented as of this encounter Miscellaneous Notes Telephone Encounter - Amauri December - 01/07/2005 1:48 PM CDT spoke with patient, he is now getting the meds from his drier operator helper, he will have pharmacy notifiy drier operator helper for refill Telephone Encounter - Roberto Linder - 01/07/2005 1:02 PM CDT Please call pt--needs appt. Telephone Encounter - Charanjit Reza - 01/07/2005 11:07 AM CDT Last filled 12/25/04,, last OV 10/03/04,, RN unable to RF med per standing order protocol due to not on approved list,, MD authorization required. Thanks. documented in this encounter Plan of Treatment Upcoming Encounters Date Type Specialty Care Team Description 05/15/2022 Hospital Encounter Surgery Singh Torres MD [facility] [address] [place] [address] (Wo rk) 05/15/2022 Surgery Surgery Neo Torres MD BLEPHAROPLASTY BILATERAL [facility] PTOSIS REPAIR BILATERAL [address] [place] [address] (Wo rk) 06/25/2022 Ancillary Procedure Cardiology Kirk Silver MD [address] [place] [address] (Wo rk) Scheduled Procedures Name Priority Associated [...] mention of complication, not stated as uncontrolled Unspecified essential hypertension 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
--- OUTSIDE RECORDS SUMMARY | 2022-05-02 12:44 | XMS_ITS | Encounter Summary ---
:1950 Author Organization [place] Address [address] [place] [address] Care Team Providers Name Role Phone Roberto Linder MD Primary Care Provider Reason for Visit Reason Comments RECHECK Encounter Details Date Type Department Care Team Description 03/27/2004 Office Visit [facility] Roberto Linder, DIABET ES UNCOMPL ADULT-TYPE II (Primary Dx); Clinic [facility] HYPERLIPIDEMIA NEC/NOS; [address]YPERTENSION NOS; [address], [place] [address] [id number] Social History Tobacco Use Types Packs/Day Years Used Date Never Smoker Alcohol Use Standard Drinks/Week Comments No 0 (1 standard drink = 0.6 oz pure alcoho l) Sex Assigned at Date Recorded Male 03/12/2021 12:11 PM CDT documented as of this encounter Last Filed Vital Signs Vital Sign Reading Time Taken Comments Blood Pressure 152/78 03/27/2004 11:00 AM CDT Pulse 68 03/27/2004 11:00 AM CDT Temperature - - Respiratory Rate - - Oxygen Saturation - - Inhaled Oxygen Concentration - - Weight 98.4 kg (217 lb) 03/27/2004 11:00 AM CDT Height - - Body Mass Index - - documented in this encounter Progress Notes 03/27/2004 11:00 AM CDT 1149--1215 Nikita Anderson presents for health counseling with respect to diabetes mellitus, hyperten carla, hyperlipidemia, and erectile dysfunction. 25 minutes were spent with the patient face to face today, over50% of which was devoted to health counseling and education regarding these issues. Pt t aking Regular insulin, 24 units in AM, 26 units in PM. Lente insulin 26 units twice daily. He is seld om checking glucoses. He acknowledges the need to make changes in his diabetes regimen and glycemic m onitoring. We reviewed results of A1c's over past few years: A1C 10.3 08/08/2003 A1C 10.0 11/09/2002 A1C 10.0 07/16/2002 He is willing also to begin a medication for hypertension and for hyperlipidemia. We discussed the need to begin one medication at a time to understand well which one is responsible for any adverse response. Discussed target LDL of 100, and target BP of under 13 0 systolic. We reviewed in great detail benefits of using Lantus and Humalog rather than NPH and Regu lar insulin. Discussed potential future benefit of adding a medication such as metformin. Finally, he is interested in another trial of Levitra, though his recollection seems to be that Viagra was mor e effective for him. OBJECTIVE: Well-appearing middle-aged male in no distress. BP 152/78 Pulse 6 8 Wt 217 lbs (98.4kg) Repeat BP to my exam 170/92, right arm, lg cuff. Chest: Clear to auscultati on and percussion. Cardiac: Normal to precordial auscultation. No jugular venous distention. ASSESS MENT/PLAN: Health counseling with respect to diabetes mellitus, hypertension, hyperlipidemia, and er ectile dysfunction. 25 minutes were spent with the patient face to face today, over 50% of which was devoted tohealth counseling and education regarding these issues. 250.00 DIABETES UNCOMPL ADULT-TYP E II (primary encounter diagnosis) Note: Begin Lantus and Humalog--d/c other forms of insulin. Plan : INSULIN LISPRO (HUMAN) 100 U/ML SC SOLN, INSULIN GLARGINE 100 U/ML SC SOLN, AVAPRO 150 MG OR TABS, HEMOGLOBIN A1C, MICROALBUMIN (INC URINE CREAT), CREATININE, URINE 272.4 H YPERLIPIDEMIA NEC/NOS Note: Will need statin eventually, but will defer for now. Plan: HEMOGLOBIN A1C , MICROALBUMIN (INC URINE CREAT) 401.9 HYPERTENSION NOS Note: After taking new form of insulin for about two weeks, begin Avapro (samples provided). Plan: AVAPRO 150 MG OR TABS 607.84 IMPO TENCE, ORGANIC ORIGN Note: Offered samples and instructions for Levitra. Plan: LEVITRA 10MG Fo llow-up with me in about six weeks, call or schedule a follow-up appointment sooner prn if any proble documented in this encounter Nursing Notes 03/27/2004 11:00 AM CDT >> BOLIVAR BOWMAN 03/27/2004 11:25 am Diabetic follow up. documented in this encounter Plan of Treatment Upcoming Encounters Date Type Specialty Care Team Description 05/15/2022 Hospital Encounter Surgery Singh Torres MD [facility] [address] [place] [address] (Wo rk) 05/15/2022 Surgery Surgery Neo Torres MD BLEPHAROPLASTY BILATERAL [facility], [facility] PTOSIS REPAIR BILATERAL [address] [place] [address] (Wo rk) 06/25/2022 Ancillary Procedure Cardiology Kirk Silver MD [address] [place] [id number] (Wo rk) Scheduled Procedures Name Priority Associated Diagnoses Date/Time REPAIR, PTOSIS, BILATERAL, Dermatochalas is 05/15/2022 7:30 AM CDT WITH BILATERAL BLEPHAROPLASTY 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 HCL GLYCATED Routine 03/27/2004 12:20 PM Diabetes Uncompl Resu lts for this HEMOGLOBIN CDT Adult-Type Ii procedure are in Hyperlipidemia the results Nec/Nos section. HCL ALBUMIN URINE Routine 03/27/2004 12:20 PM Diabetes Uncompl Results for this (INC CREAT) CDT Adult-Type Ii procedure are in Hyperlipidemia the results Nec/Nos section. documented in this encounter Results CREATININE, URINE (03/27/2004 12:20 PM CDT) P athologist Signature Creatinine 61 mg/dL [facility] Urine [facility] Specimen Anatomical Collection Method Collection Time Receive d Time (Source) Location / / Volume Laterality 03/27/2004 12:20 03/27/2004 PM CDT 12:25 PM CDT Roberto Linder MD LABORATORY Performing Organization Address City/State/ZIP Code Phon e Number [address] LABS (ABNORMAL) MICROALBUMIN (INC URINE CREAT) (03/27/2004 12:20 PM CDT) Patholo gist Method Time Signature Albumin Urine 79 mg/L [facility] mg/L [facility] Albumin Urine 128.85 (H) 0 - 20 [facility] mg/g Cr mg/g Cr [facility] Specimen Anatomical Collection Method Collection Time Receive d Time (Source) Location / / Volume Laterality 03/27/2004 12:20 03/27/2004 PM CDT 12:25 PM CDT Roberto Linder MD LABORATORY Performing Organization Address City/State/ZIP Code Phon e Number [address] LABS (ABNORMAL) HEMOGLOBIN A1C (03/27/2004 12:20 PM CDT) Analysis Performed At Patho logist Time Signature Hemoglobin A1C 10.7 (H) 4.3 - 6.0 [facility] Specimen Anatomical Collection Method Collection Time Receive d Time (Source) Location / / Volume Laterality 03/27/2004 12:20 03/27/2004 PM CDT 12:25 PM CDT Roberto Linder MD LABORATORY Performing Organization Address City/State/ZIP Code Phon e Number [facility] [address] [place] [address] [facility] documented in this encounter Visit Diagnoses Diagnosis Type II or unspecified type diabetes vincent litus without mention of complication, not stated as uncontrolled - Primary Other and unspecified hyperlipidemia Unspecified essential hypertension 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
--- OUTSIDE RECORDS SUMMARY | 2022-05-02 12:44 | XMS_ITS | Encounter Summary ---
:1950 Author Organization [place] Address [address] [facility] [place] [address] Care Team Providers Name Role Phone Roberto Linder MD Primary Care Provider [facility], Bandar Hiram Primary Care Provider [phone] Anatoliy Jackson MD Primary Care Provider Heath More MD Unavailable Peter Gipson MD Unavailable Encounter Details Date Type Department Care Team Description 10/15/2004 Historic Results [facility] Heart Unknown, [place] [id number] [facility] [address] [place] [address] Social History [...] MD [facility] [address] [facility] [address] [place] [address] (Wo rk) 05/15/2022 Surgery Surgery Neo Torres MD BLEPHAROPLASTY BILATERAL [facility], INTERNAL & [facility] PTOSIS REPAIR BILATERAL [address] [place] [address] [place] [id number] (Wo rk) 06/25/2022 Ancillary Procedure Cardiology Kirk Silver MD [address] [place] [id number] (Wo rk) Scheduled Procedures Name Priority Associated [...] Comme nts ECHO CARDIAC - HIM SCAN 10/15/2004 12:00 AM KAIAKO KURA TUARUA - ARCHIVE documented in this encounter Results ECHO CARDIAC - HIM SCAN - ARCHIVE (10/15/2004 12:00 AM KAIAKO KURA TUARUA) Specimen (Source) Anatomical Location Collection Method / Collectio n Time Received Time / Laterality Volume 10/15/2004 Narrative This result has an attachment that is no t available. Provider Scan CV ECHO ORDERABLES documented in this encounter Visit Diagnoses Not on filedocumented in this encounter Care Teams Compress Machine Operator Relationship Specialty Start Date End Date Roberto Linder MD PCP - General 12/29/02 08/20/[address] [place] [address] Bandar Siddiqi PCP - General 08/21/11 05/13/12 [place] [address] [place], [place] [address] Anatoliy Jackson MD PCP - General 05/14/12 Heath More, PCP - Internal Medicine INTERNAL MEDICINE - ENDOCRINOLOGY, [facility] [address] [facility] [address] [place] [phone] Peter Gipson, PCP - Urology 04/02/15 [facility] [address] [place] [address] documented as of this encounter
--- OUTSIDE RECORDS SUMMARY | 2022-05-02 12:44 | XMS_ITS | Encounter Summary ---
:1950 Author Organization [place] Address [address] [facility] [place] [address] Care Team Providers Name Role Phone Carmel Linder MD Primary Care Provider Reason for Visit Reason Onset Date Comments Refill Request 09/18/2004 Encounter Details Date Type Department Care Team Description 09/18/2004 Refill [facility] Carmel Linder MD Refill Request [place] [address] [facility] [address] [place] [address] [place] [address] [phone] Social History Tobacco Use Types Packs/Day Years Used Date Never Smoker Alcohol Use Standard Drinks/Week Comments No 0 (1 standard drink = 0.6 oz pure alcoho l) Sex Assigned at Date Recorded Male 03/12/2021 12:11 PM CDT documented as of this encounter Miscellaneous Notes Telephone Encounter - 09/18/2004 8:42 AM GAS ENGINE OPERATOR GENERATORS >> ELINOR Whitehead Sep 20, 2004 9:02 AM left message for patient regarding need for appointment >> CARMEL LINDER Leana Sep 19, 2004 8:12 AM Needs appt. Requested 6 week f/u last March. Please advise pt. Will refill insulin x one for now. >> YANICK Charles Sep 18, 2004 8:45 AM last fill for the needles 06/09/04 and for the lantus 07/15/04. I could probably have done the need les, but I could not do the insulin, so I just sent them both to you to do. Sorry. documented in this encounter Plan of Treatment Upcoming Encounters Date Type Specialty Care Team Description 05/15/2022 Hospital Encounter Surgery Singh Torres MD [facility] [address] [place] [address] (Wo rk) 05/15/2022 Surgery Surgery Neo Torres MD BLEPHAROPLASTY BILATERAL [facility] UPP[facility] IDS, INTERNAL & [facility] PTOSIS REPAIR BILATERAL [address] [place] [address] (Wo rk) 06/25/2022 Ancillary Procedure Cardiology Kirk Silver MD [address] [place] [id number] (Wo rk) Scheduled Procedures Name Priority Associated [...] filedocumented in this encounter Care Teams Special Machine Stitcher Relationship Specialty Start Date End Date Carmel Linder MD PCP - General 12/29/02 08/20/[address] [place] [address] documented as of this encounter
--- OUTSIDE RECORDS SUMMARY | 2022-05-02 12:44 | XMS_ITS | Encounter Summary ---
:1950 Author Organization [place] Address [address] [facility] [place] [address] Care Team Providers Name Role Phone Roberto Linder MD Primary Care Provider Encounter Details Date Type Department Care Team Description 12/02/2004 [facility] Roberto Linder MD ABSTRACTING RESULTS [facility] [address] (Primary Dx) [address] [place] [address] [phone] Social History Tobacco Use Types Packs/Day Years [...] [address] [place] [id number] (Wo rk) 05/15/2022 Surgery Surgery Neo Torres MD BLEPHAROPLASTY BILATERAL [facility], INTERNAL & SURGEONS [facility] PTOSIS REPAIR BILATERAL [address] [place] [address] (Wo rk) 06/25/2022 Ancillary Procedure Cardiology Kirk Silver MD [address] [place] [address] (Wo rk) Scheduled Procedures Name Priority Associated [...] Name Priority Date/Time Associated Diagnosis Comme nts NON-CLINIC SCANNED LAB Routine 12/02/2004 ABSTRACTING RESULT S documented in this encounter Results NON-CLINIC SCANNED LAB (12/02/2004) Specimen (Source) Anatomical Location Collection Method / Collectio n Time Received Time / Laterality Volume 12/02/2004 Narrative This result has an attachment that is no t available. 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
--- OUTSIDE RECORDS SUMMARY | 2022-05-02 12:44 | XMS_ITS | Encounter Summary ---
:1950 Author Organization [place] Address [address] [facility] [place] [address] Care Team Providers Name Role Phone Roberto Linder MD Primary Care Provider Encounter Details Date Type Department Care Team Description 10/11/2004 Abstract M [facility] Shaan Clark [facility] Endocrinology Clinic [address] [address] Social History Tobacco Use Types Packs/Day Years Used Date Never Smoker Alcohol Use Standard Drinks/Week Comments Yes 0 (1 standard drink = 0.6 oz pure alcoho l) occasionally Sex Assigned at Date Recorded Male 03/12/2021 12:11 PM CDT documented as of this encounter Progress Notes Shaan Forbes - 10/11/2004 11:59 PM TREE WORKER Addended by: SHAAN FORBES on: 07/21/2005 3:47:10 PM Modules accepted: Orders, SmartSet WORKER documented in this encounter Plan of Treatment Upcoming Encounters Date Type Specialty Care Team Description 05/15/2022 Hospital Encounter Surgery Singh Torres MD [facility] [address] [place] [address] (Wo rk) 05/15/2022 Surgery Surgery Neo Torres MD BLEPHAROPLASTY BILATERAL [facility] UPPER L IDS, INTERNAL & SURGEONS [facility] PTOSIS REPAIR BILATERAL [address] [place] [address] [place] [address] (Wo rk) 06/25/2022 Ancillary Procedure Cardiology Kirk Silver MD [address] [place] [address] (Wo rk) Scheduled Procedures Name Priority Associated [...] Associated Diagnosis Comme nts HCL LDL-CHOLESTEROL Routine 10/11/2004 DIAGNOSIS NOT YET Res ults for this DEFINED procedure are i n the results section . HCL TSH Routine 10/11/2004 DIAGNOSIS NOT YET Results fo r this DEFINED procedure are i n the results section . HCL TRIGLYCERIDES Routine 10/11/2004 DIAGNOSIS NOT YET Resul ts for this DEFINED procedure are i n the results section . HCL HDL CHOLESTEROL Routine 10/11/2004 DIAGNOSIS NOT YET Res ults for this DEFINED procedure are i n the results section . HCL CHOLESTEROL Routine 10/11/2004 DIAGNOSIS NOT YET Results for this DEFINED procedure are i n the results section . documented in this encounter Results TRIGLYCERIDES [[id number]] (10/11/2004) P athologist Signature Triglycerides 245@ mg/dL [facility] Shaan Solarez LABORATORY Performing Organization Address City/State/ZIP Code Phon e Number [facility] HDL CHOLESTEROL [20781.000] (10/11/2004) P athologist Signature HDL Cholesterol 42@ mg/dL [facility] Shaan Solarez LABORATORY Performing Organization Address City/State/ZIP Code Phon e Number [facility] LDL-CHOLESTEROL [72519.001] (10/11/2004) P athologist Signature LDL Cholesterol 129@ [facility] Calculated Shaan Clark LABORATORY Performing Organization Address City/State/ZIP Code Phon e Number [facility] CHOLESTEROL [06319.000] (10/11/2004) P athologist Signature Cholesterol 220@ 115 - 199 [facility] mg/dL Shaan Clark LABORATORY Performing Organization Address City/[facility]/ZIP Code Phon e Number [facility] TSH [16361.001] (10/11/2004) P athologist Signature TSH 2.83@ mcU/mL [facility] Shaan Clark LABORATORY Performing Organization Address City/[facility] Code Phon e Number [facility] documented in this encounter Visit Diagnoses Diagnosis DIAGNOSIS NOT YET DEFINED - Primary 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
--- OUTSIDE RECORDS SUMMARY | 2022-05-02 12:44 | XMS_ITS | Encounter Summary ---
:1950 Author Organization [place] Address [address] [place] [address] Care Team Providers Name Role Phone Roberto Linder MD Primary Care Provider Encounter Details Date Type Department Care Team Description 04/22/2005 Abstract M [facility] Clark, [facility] f rom Endocrinology [facility] [address] [place] [address] Social History Tobacco Use Types [...] [address] [place] [id number] (Wo rk) 05/15/2022 Surgery Surgery Neo Torres MD BLEPHAROPLASTY BILATERAL [place] [facility] IDS, INTERNAL & SURGEONS PA PTOSIS REPAIR BILATERAL [address] [place] [id number] (Wo rk) 06/25/2022 Ancillary Procedure Cardiology Kirk Silver MD [address] [place] [address] (Wo rk) Scheduled Procedures Name Priority Associated [...] Associated Diagnosis Comme nts HCL GLYCATED Routine 04/22/2005 DIAGNOSIS NOT YET Results fo r this HEMOGLOBIN DEFINED procedure are i n the results section . HCL GLUCOSE Routine 04/22/2005 DIAGNOSIS NOT YET Results fo r this DEFINED procedure are i n the results section . HCL ALT Routine 04/22/2005 DIAGNOSIS NOT YET Results fo r this DEFINED procedure are i n the results section . HCL CREATININE Routine 04/22/2005 DIAGNOSIS NOT YET Results for this DEFINED procedure are i n the results section . documented in this encounter Results GLUCOSE [[id number]] (04/22/2005) P athologist Signature Glucose 133@ mg/dL [facility] Rabia Clark LABORATORY Performing Organization Address [facility] Phon e Number [facility] CREATININE [[id number]] (04/22/2005) P athologist Signature Creatinine 1.1@ mg/dL [facility] Rabia Clark LABORATORY Performing Organization Address [facility] Phon e Number [facility] ALT [[id number]] (04/22/2005) P athologist Signature ALT 29@ U/L [facility] Rabia Clark LABORATORY Performing Organization Address [facility] Phon e Number [facility] HEMOGLOBIN A1C [[id number]] (04/22/2005) P athologist Signature Hemoglobin A1C 8.1@ % [facility] Rabia Clark LABORATORY Performing Organization Address [facility] Phon e Number [facility] documented in this encounter Visit Diagnoses Diagnosis DIAGNOSIS NOT YET DEFINED - Primary 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
--- OUTSIDE RECORDS SUMMARY | 2022-05-02 12:44 | XMS_ITS | Encounter Summary ---
:1950 Author Organization [place] Address [address] [facility] [place] [address] Care Team Providers Name Role Phone Roberto Linder MD Primary Care Provider Reason for Visit Reason Onset Date Comments Refill Request 10/07/2004 humalog Encounter Details Date Type Department Care Team Description 10/07/2004 Refill [facility] Roberto Linder MD Refill Request Clinic [place] [address] [place] (humalog) [address] [place], [place] [address] [phone] Social History Tobacco Use Types Packs/Day Years Used Date Never Smoker Alcohol Use Standard Drinks/Week Comments Yes 0 (1 standard drink = 0.6 oz pure alcoho l) occasionally Sex Assigned at Date Recorded Male 03/12/2021 12:11 PM CDT documented as of this encounter Miscellaneous Notes Telephone Encounter - Krystal Sewell - 10/07/2004 11:32 AM CST last fill 08/27/04. unable to fill med per S.O. protocol due to last HgbA1c above 7.0. thanks LE ROOM HELPER documented in this encounter Plan of Treatment Upcoming Encounters Date Type Specialty Care Team Description 05/15/2022 Hospital Encounter Surgery Singh Torres MD [facility] [address] [place] [address] (Wo rk) 05/15/2022 Surgery Surgery Neo Torres MD BLEPHAROPLASTY BILATERAL [place] [facility] [facility] UPPER L IDS, INTERNAL & SURGEONS [place] PTOSIS REPAIR BILATERAL [address] [address] [place] [address] (Wo rk) 06/25/2022 Ancillary Procedure Cardiology Kirk Silver MD [address] [place] [address] (Wo rk) Scheduled Procedures Name Priority Associated [...] ptosis documented in this encounter Care Teams Kitchen Cleaner Relationship Specialty Start Date End Date Roberto Linder MD PCP - General 12/29/02 08/20/11 [address] [facility] 160 [place] [address] documented as of this encounter
--- OUTSIDE RECORDS SUMMARY | 2022-05-02 12:44 | XMS_ITS | Encounter Summary ---
:1950 Author Organization [place] Address [address] [facility] [place] [address] Care Team Providers Name Role Phone Roberto Linder MD Primary Care Provider Reason for Referral - Closed Specialty Diagnoses / Procedures Referred By Contact Refer red To Contact Diagnoses Type II or unspecified type diabetes mellitus without mention of complication, not stated as uncontrolled Roberto Linder MD [address] [place] [address] Referral ID Status Reason Start Date Expiration Date Visits Requ ested Visits Authorized [id number] Closed 10/03/2004 08/09/2011 1 1 RAM ATTENDANT Reason for Visit Reason Comments Diabetes Pt had labs drawn last week. Pt monitors not regularly. Encounter Details Date Type Department Care Team Description 10/03/2004 Office Visit [facility] Roberto Linder, DIABET ES UNCOMPL ADULT-TYPE II; Clinic [place] [facility] HYPERTENSION NOS; [address] HYPERLIPIDEMI A NEC/NOS; [place] [facility] [address] [place], [place] [address]9 [phone] Social History Tobacco Use Types Packs/Day Years Used Date Never Smoker Alcohol Use Standard Drinks/Week Comments Yes 0 (1 standard drink = 0.6 oz pure alcoho l) occasionally Sex Assigned at Date Recorded Male 03/12/2021 12:11 PM CDT documented as of this encounter Last Filed Vital Signs Vital Sign Reading Time Taken Comments Blood Pressure 160/90 10/03/2004 9:30 AM PROGRAM ATTENDANT Pulse 64 10/03/2004 9:30 AM PROGRAM ATTENDANT Temperature - - Respiratory Rate - - Oxygen Saturation - - Inhaled Oxygen Concentration - - Weight - - Height - - Body Mass Index - - documented in this encounter Progress Notes Roberto Linder - 10/03/2004 10:07 AM CST [id number] Nikita Brown Justin presents for health counseling with respect to diabetes mellitus, hypertension, hyperlipidemia, erectile dysfunction. Thirty minutes were spent with the patient face to face today, over 50% of which was devoted to health counseling and education regarding these issues. Currently taking Lantus at 48 units sq qPM. He has awakened on rare occasions with glucoses below 70, but mostly is noting AM glucoses to run in the 200-300 range. Taking Humalog at 15 units with breakfast and lunch, 20 units with supper. We discussed his glycemic control, activities and eating habits in detail, along with strategies foradjusting Lantus and Humalog. We agreed to refer him on to endocrinology however, to get some additional help. We discussed the target BP and LDL in diabetics. Benicar appears to be an approved ARB with his [employer] insurance. He had post-nasal drainage and cough that he perceived to be due to Lipitor, and we have deferred the addition of a statin. He would like samples and prescription for Viagra. He found 100 mg to be more beneficial than 50 mg. OBJECTIVE: Well-appearing middle-aged male in no distress. BP 160/90 Pulse 64 Neck: supple, no adenopathy, thyromegaly or masses. Chest: Clear to auscultation and percussion. Cardiac: Normal to precordial auscultation. No jugular venous distention. Abdomen: soft without tenderness, guarding, mass or organomegaly. Extremities: Lower extremities normal to inspection and palpation. ASSESSMENT/PLAN: Health counseling with respect to diabetes mellitus, hypertension, hyperlipidemia. Thirty minutes were spent with the patient face to face today, over 50% of which was devoted to health counseling and education regarding these issues. 250.00 DIABETES UNCOMPL ADULT-TYPE II Note: Continue to gradually raise dose of Lantus as AM glucoses dictate. Begin checking post prandial dinner glucoses. Referred to endocrine for assistance. Plan: BENICAR 40 MG OR TABS, CONSULT ENDOCRINOLOGY 401.9 HYPERTENSION NOS Note: Begin Benicar at 20 mg daily. Plan: BENICAR 40 MG OR TABS 272.4 HYPERLIPIDEMIA NEC/NOS Note: Discussed target LDL of below 100. Will eventually require a statin, but this is deferred due to other med changes. 607.84 IMPOTENCE, ORGANIC ORIGN Note: Offered samples and Rx for Viagra. Plan: VIAGRA 100 MG OR TABS Follow-up with me in two months, call or schedule a follow-up appointment sooner prn if any problems. RAM ATTENDANT documented in this encounter Nursing Notes 10/03/2004 9:30 AM CST >> ILIA GIBSON 10/03/2004 9:41 am Nikita Kevin Anderson presents for diabetic check, does not monitor regularly, labs done last week. Initial BP 160/90 Pulse 64 There is no height information to calculate BMI. . BP completed using cuff size: large. Ilia Gibson CMA documented in this encounter Plan of Treatment Upcoming Encounters Date Type Specialty Care Team Description 05/15/2022 Hospital Encounter Surgery Singh Torres MD [facility] [address] [place] [address] (Roslava ferreira) 05/15/2022 Surgery Surgery Neo Torres MD BLEPHAROPLASTY BILATERAL [facility] PTOSIS REPAIR BILATERAL [address] [place] [id number] (Rosalva rk) 06/25/2022 Ancillary Procedure Cardiology Kirk Silver MD [address] [place] [id number] (Rosalva ferreira) Scheduled Procedures Name Priority Associated [...] Priority Date/Time Associated Diagnosis Comme nts ZZ CONSULT ENDOCRINOLOGY Routine 10/11/2004 DIABETES UNCO MPL ADULT-TYPE II documented in this encounter Results CONSULT ENDOCRINOLOGY (10/11/2004) Narrative This result has an attachment that is no t available. 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
--- OUTSIDE RECORDS SUMMARY | 2022-05-02 12:44 | XMS_ITS | Encounter Summary ---
:1950 Author Organization [place] Address [address] [facility] [place] [address] Care Team Providers Name Role Phone Roberto Linder MD Primary Care Provider Reason for Visit Reason Onset Date Comments Refill Request 05/06/2004 Encounter Details Date Type Department Care Team Description 05/06/2004 Refill [facility] Roberto Linder MD Refill Request [place] [address] [place] [address] [place] [address] [phone] Social History Tobacco Use Types Packs/Day Years Used Date Never Smoker Alcohol Use Standard Drinks/Week Comments No 0 (1 standard drink = 0.6 oz pure alcoho l) Sex Assigned at Date Recorded Male 03/12/2021 12:11 PM CDT documented as of this encounter Miscellaneous Notes Telephone Encounter - 05/06/2004 10:59 AM CDT >> ALEJANDRO RAMESH Mon May 06, 2004 11:01 AM pt asking for a new script. authorized RF's per S.O protocol documented in this encounter Plan of Treatment Upcoming Encounters Date Type Specialty Care Team Description 05/15/2022 Hospital Encounter Surgery Singh Torres MD [facility] [address] [place] [address] (Wo rk) 05/15/2022 Surgery Surgery Neo Torres MD BLEPHAROPLASTY BILATERAL [facility] PTOSIS REPAIR BILATERAL [address] [place] [id number] (Wo rk) 06/25/2022 Ancillary Procedure Cardiology Kirk Silver MD [address] [place] [address] (Wo rk) Scheduled Procedures Name Priority Associated [...] on filedocumented in this encounter Care Teams Perinatal Coordinator Relationship Specialty Start Date End Date Roberto Linder MD PCP - General 12/29/02 08/20/11 [address] [facility] 160 [place] [address] documented as of this encounter
--- OUTSIDE RECORDS SUMMARY | 2022-05-02 12:44 | XMS_ITS | Encounter Summary ---
:1950 Author Organization [place] Address [address] [place] [address] Care Team Providers Name Role Phone Roberto Linder MD Primary Care Provider Encounter Details Date Type Department Care Team Description 06/20/2005 Abstract [facility] Clark, [facility] f rom Endocrinology Clinic [facility] [address] [place] [address] Social History Tobacco Use Types [...] [address] [place] [id number] (Wo rk) 05/15/2022 Surgery Surgery Neo Torres MD BLEPHAROPLASTY BILATERAL [facility], [facility] & [facility] PTOSIS REPAIR BILATERAL [address] [place] [id number] (Wo rk) 06/25/2022 Ancillary Procedure Cardiology Kirk Silver MD [address] [place] [address] (Wo rk) Scheduled Procedures Name Priority Associated [...] Priority Date/Time Associated Diagnosis Comme nts HCL POTASSIUM Routine 06/20/2005 DIAGNOSIS NOT YET DEFINED R esults for this procedure are i n the results section . HCL GLUCOSE Routine 06/20/2005 DIAGNOSIS NOT YET DEFINED Re sults for this procedure are i n the results section . HCL ALT Routine 06/20/2005 DIAGNOSIS NOT YET DEFINED Re sults for this procedure are i n the results section . HCL CREATININE Routine 06/20/2005 DIAGNOSIS NOT YET DEFINED Results for this procedure are i n the results section . documented in this encounter Results GLUCOSE [[id number]] (06/20/2005) P athologist Signature Glucose 436@ mg/dL M[facility]YS Rabia Clark LABORATORY Performing Organization Address [facility] Phon e Number MISYS POTASSIUM [[id number]] (06/20/2005) P athologist Signature Potassium 5.3@ mmol/L [facility] Rabia Clark LABORATORY Performing Organization Address [facility] Phon e Number MISYS CREATININE [[id number]] (06/20/2005) P athologist Signature Creatinine 1.1@ mg/dL [facility] Rabia Clark LABORATORY Performing Organization Address [facility] Phon e Number MISYS ALT [[id number]] (06/20/2005) P athologist Signature ALT 18@ U/L [facility] Rabia Clark LABORATORY Performing Organization Address [facility]/ZIP Code Phon e Number MISYS documented in this encounter Visit Diagnoses Diagnosis DIAGNOSIS NOT YET DEFINED - Primary 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
--- OUTSIDE RECORDS SUMMARY | 2022-05-02 12:44 | XMS_ITS | Encounter Summary ---
:1950 Author Organization [place] Address [address] [facility] [place] [address] Care Team Providers Name Role Phone Roberto Linder MD Primary Care Provider Reason for Visit Reason Onset Date Comments Refill Request 05/28/2005 strips Encounter Details Date Type Department Care Team Description 05/28/2005 Refill [facility] Roberto Linder MD Refill Request (strips) Clinic [place] [address] [facility] [address] [facility] [address] [place], [place] [phone] Social History Tobacco Use Types Packs/Day Years Used Date Never Smoker Alcohol Use Standard Drinks/Week Comments Yes 0 (1 standard drink = 0.6 oz pure alcoho l) occasionally Sex Assigned at Date Recorded Male 03/12/2021 12:11 PM CDT documented as of this encounter Miscellaneous Notes Telephone Encounter - Charanjit Reza - 05/28/2005 3:42 PM CDT Last filled 04/29/05,, last OV 10/03/04;; authorized RFs per SO protocol documented in this encounter Plan of Treatment Upcoming Encounters Date Type Specialty Care Team Description 05/15/2022 Hospital Encounter Surgery Singh Torres MD [facility] [address] [place] [address] (Wo rk) 05/15/2022 Surgery Surgery Neo Torres MD BLEPHAROPLASTY BILATERAL [facility], INTERNAL & SURGEONS [facility] PTOSIS REPAIR BILATERAL [address] [place] [address] (Wo rk) 06/25/2022 Ancillary Procedure Cardiology Kirk Silver MD [address] [place] [id number] (Wo rk) Scheduled Procedures Name Priority Associated [...] on filedocumented in this encounter Care Teams Skills Instructor Relationship Specialty Start Date End Date Roberto Linder MD PCP - General 12/29/02 08/20/11 [address] [facility] 160 [place] [address] documented as of this encounter
--- OUTSIDE RECORDS SUMMARY | 2022-05-02 12:44 | XMS_ITS | Encounter Summary ---
:1950 Author Organization [place] Address [address] [place] [address] Care Team Providers Name Role Phone Roberto Linder MD Primary Care Provider Reason for Visit Reason Onset Date Comments Refill Request 05/01/2004 Encounter Details Date Type Department Care Team Description 05/01/[address] [facility] Roberto Linder MD Refill Request [place] [address] [place] [address] [place] [address] [phone] Social History Tobacco Use Types Packs/Day Years Used Date Never Smoker Alcohol Use Standard Drinks/Week Comments No 0 (1 standard drink = 0.6 oz pure alcoho l) Sex Assigned at Date Recorded Male 03/12/2021 12:11 PM CDT documented as of this encounter Miscellaneous Notes Telephone Encounter - 05/01/2004 8:22 AM CDT >> ALEJANDRO LINARES Wed May 01, 2004 8:29 AM Pharmacy requesting to dispense 2 viles for back up? Last HA1c 10.7, on 03/27/04. documented in this encounter Plan of Treatment Upcoming Encounters Date Type Specialty Care Team Description 05/15/2022 Hospital Encounter Surgery Singh Torres MD [facility] [address] [place] [address] (Wo rk) 05/15/2022 Surgery Surgery Neo Torres MD BLEPHAROPLASTY BILATERAL [facility], INTERNAL & SURGE[facility] PTOSIS REPAIR BILATERAL [address] [place] [phone] (Wo rk) 06/25/2022 Ancillary Procedure Cardiology Kirk Silver MD [address] [place] [id number] (Wo rk) Scheduled Procedures Name Priority Associated [...] ptosis documented in this encounter Care Teams Snaker Relationship Specialty Start Date End Date Roberto Linder MD PCP - General 12/29/02 08/20/11 [address] [facility] 160 [place], [place] [address] documented as of this encounter
--- OUTSIDE RECORDS SUMMARY | 2022-05-02 12:44 | XMS_ITS | Encounter Summary ---
:1950 Author Organization [place] Address [address] [facility] [place] [address] Care Team Providers Name Role Phone Roberto Linder MD Primary Care Provider Reason for Visit Reason Comments Blood Draw Encounter Details Date Type Department Care Team Description 09/25/2004 [facility] Clinic CELESTINE BETES UNCOMPL ADULT-TYPE II ; [facility] HYPERLIPIDEMIA NEC/NOS [address] [place] [address] Social History Tobacco Use Types [...] [address] [place] [id number] (Wo rk) 05/15/2022 Surgery Surgery Neo Torres MD BLEPHAROPLASTY BILATERAL [facility], INTERNAL & SURGEONS PA PTOSIS REPAIR BILATERAL [address] [place] [phone] (Wo rk) 06/25/2022 Ancillary Procedure Cardiology Li, Huagui, MD [address] [place] [address] (Wo rk) Scheduled Procedures Name Priority Associated [...] Priority Date/Time Associated Diagnosis Comme nts HCL BASIC METABOLIC Routine 09/25/2004 8:03 AM DIABETES UNCOMP L Results for this PANEL WAGON DRILL OPERATOR ADULT-TYPE II procedure are in HYPERLIPIDEMIA NEC/NOS the r esults section. HCL GLYCATED Routine 09/25/2004 8:03 AM DIABETES UNCOMPL Resul ts for this HEMOGLOBIN WAGON DRILL OPERATOR ADULT-TYPE II procedure are in HYPERLIPIDEMIA NEC/NOS the r esults section. HCL ALT Routine 09/25/2004 8:03 AM HYPERLIPIDEMIA NEC/NOS Results for this WAGON DRILL OPERATOR procedure are in DIABETES UNCOMPL the results ADULT-TYPE II section. CL AFF A.M.A. LIPID Routine 09/25/2004 8:03 AM HYPERLIPIDEMIA NEC/NOS Results for this PANEL WAGON DRILL OPERATOR procedure are in DIABETES UNCOMPL the results ADULT-TYPE II section. documented in this encounter Results (ABNORMAL) HEMOGLOBIN A1C (09/25/2004 8:03 AM WAGON DRILL OPERATOR) Analysis Performed At Patho logist Time Signature Hemoglobin A1C 10.7 (H) 4.3 - 6.0 [facility] Specimen Anatomical Collection Method Collection Time Receive d Time (Source) Location / / Volume Laterality 09/25/2004 8:03 AM 5 8:08 WAGON DRILL OPERATOR AM WAGON DRILL OPERATOR Roberto Linder MD LABORATORY Performing Organization Address City/State/ZIP Code Phon e Number [facility] [address] [place] [address] [facility] ALANINE AMINO (ALT) (SGPT) (09/25/2004 8:03 AM WAGON DRILL OPERATOR) P athologist Signature ALT 28 0 - 70 U/L ED [facility] Specimen Anatomical Collection Method Collection Time Receive d Time (Source) Location / / Volume Laterality 09/25/2004 8:03 AM 5 8:08 WAGON DRILL OPERATOR AM WAGON DRILL OPERATOR Roberto Linder MD LABORATORY Performing Organization Address [facility] Phon e Number [facility] [address] [place] [address] [facility] LAB (ABNORMAL) A.M.A. LIPID PANEL (09/25/2004 8:03 AM WAGON DRILL OPERATOR) athologist Signature Cholesterol 208 (H) 0 - 200 [facility] mg/dL [facility] Comment: Cholesterol Reference Range: <200 ??The NCEP recommends further ? evaluation of: ? 1. ??Patients with cholesterol ? greater than 200 mg/dL ? if additional risk facto rs ? are present. ? 2. ??All patients with a ? cholesterol greater than ? 240 mg/dL. Triglycerides 164 (H) 0 - 150 mg/dL [facility] HDL Cholesterol 41 >40 mg/dL ED [facility] LDL Cholesterol Calculated 134 (H) 0 - 129 mg/dL [facility] VLDL-Cholesterol 33 (H) 0 - 30 mg/dL [facility] Cholesterol/HDL Ratio 5.1 (H) 0.0 - 5.0 [facility] Specimen Anatomical Collection Method Collection Time Receive d Time (Source) Location / / Volume Laterality 09/25/2004 8:03 AM 5 8:08 WAGON DRILL OPERATOR AM WAGON DRILL OPERATOR Roberto Linder MD LABORATORY Performing Organization Address City/[facility] Code Phon e Number [facility] [address] [place] [address] [facility] LAB (ABNORMAL) A.M.A. BASIC METABOLIC PANEL (09/25/2004 8:03 AM WAGON DRILL OPERATOR) P athologist Signature Sodium 141 133 - 144 [facility] mmol/L [facility] Potassium 4.7 3.4 - 5.3 [place] mmol/L [facility] Chloride 105 94 - 109 [place] mmol/L [facility] Carbon Dioxide 29 20 - 32 [place] mmol/L [facility] Anion Gap 7 6 - 17 [place] mmol/L [facility] Glucose 205 (H) 60 - 110 [place] mg/dL [facility] Urea Nitrogen 16 7 - 30 [place] mg/dL [facility] Creatinine 0.90 0.80 - [place] 1.50 mg/dL [facility] GFR Estimate >80 >60 [facility] mL/min/1.7 [facility] m2 LAB GFR Estimate If >80 >60 [facility] Black mL/min/1.7 [facility] m2 LAB Calcium 9.4 8.5 - 10.4 [facility] mg/dL [facility] Specimen Anatomical Collection Method Collection Time Receive d Time (Source) Location / / Volume Laterality 09/25/2004 8:03 AM 5 8:08 WAGON DRILL OPERATOR AM WAGON DRILL OPERATOR Roberto Linder MD LABORATORY Performing Organization Address City/State/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
--- OUTSIDE RECORDS SUMMARY | 2022-05-02 12:44 | XMS_ITS | Encounter Summary ---
:1950 Author Organization [place] Address [address] [facility] [place] [address] Care Team Providers Name Role Phone Roberto Linder MD Primary Care Provider Reason for Visit Reason Onset Date Comments Erroneous encounter-disregard 07/02/2007 Encounter Details Date Type Department Care Team Description 07/02/2007 [facility] Roberto Linder MD Erroneous Clinic [place] [address] [place] encounter-disregard [address] [place], [place] [phone] Social History Tobacco Use Types Packs/Day Years [...] MD [facility] [address] [place] [address] (Wo rk) 05/15/2022 Surgery Surgery Neo Torres MD BLEPHAROPLASTY BILATERAL [facility], INTERNAL & SURGEONS [facility] PTOSIS REPAIR BILATERAL [address] [place] [address] (Wo rk) 06/25/2022 Ancillary Procedure Cardiology Kirk Silver MD [address] [place] [address] (Wo rk) Scheduled Procedures Name Priority Associated [...] ptosis documented in this encounter Care Teams Cobbler Sole Relationship Specialty Start Date End Date Roberto Linder MD PCP - General 12/29/02 08/20/11 [address] [facility] [address] [place] [address] documented as of this encounter
--- OUTSIDE RECORDS SUMMARY | 2022-05-02 12:44 | XMS_ITS | Encounter Summary ---
:1950 Author Organization [place] Address [address] [facility] [place] [address] Care Team Providers Name Role Phone Roberto Linder MD Primary Care Provider Encounter Details Date Type Department Care Team Description 04/21/[address] [facility] Heath More, [facility] Results [facility] [address] [place] [address] (Wo rk) Social History Tobacco Use [...] [address] [place] [phone] (Wo rk) 05/15/2022 Surgery Surgery Neo Torres MD BLEPHAROPLASTY BILATERAL [place] [facility]S, INTERNAL & SURGEONS [place] PTOSIS REPAIR BILATERAL [address] [place] [phone] (Wo rk) 06/25/2022 Ancillary Procedure Cardiology Kirk Silver MD [address] [place] [address] (Wo rk) Scheduled Procedures Name Priority Associated Diagnoses Date/Time REPAIR, PTOSIS, BILATERAL, Dermatochalas is 05/15/2022 7:30 AM CDT WITH BILATERAL BLEPHAROPLASTY 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 REPAIR, ECTROPION, EYE, Dermatochalasis 05/15/2022 7:30 AM CDT BILATERAL 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 documented as of this encounter Procedures Procedure Name Priority Date/Time Associated Diagnosis Comme [facility] MR ANGIO Routine 04/21/2006 4:06 PM Results f or this ABDOMEN (MRA) CDT procedure are in the results section. documented in this encounter Results MR ANGIO ABDOMEN (MRA) (04/21/2006 4:06 PM CDT) Specimen (Source) Anatomical Collection Method Collection Time Re ceived Time Location / / Volume Laterality 04/21/2006 4:06 PM CDT Impressions RADIOLOGY RESULTS - 04/24/2006 7:54 AM C DT MRA OF THE ABDOMEN ?? HISTORY: ??Diabetes. ??Hypertension. ? TECHNIQUE: ??The study was done with num erous pulse sequences and reformatted images. ??Gadolinium was use d as contrast agent. ? FINDINGS: ??The aorta is normal. ??The c eliac axis, superior mesenteric artery and inferior mesenteric artery ar e normal. ??Both renal arteries are widely patent without renal artery stenosis. ??A small cyst is seen cortically on the right and inferiorly on the left. ? CONCLUSION: Small renal cysts. ??No evidence of melanie l artery stenosis. ??No evidence of adrenal mass. J Andreas More MD SPECIAL IMAGING STUDIES Performing Organization Address City/State/ZIP Code Phon e Number RADIOLOGY RESULTS documented in this encounter Visit Diagnoses Not on filedocumented in this encounter Care Teams Floorworker Distributor Relationship Specialty Start Date End Date Roberto Linder MD PCP - General 12/29/02 08/20/11 [address] [facility] [address] [place] [address] documented as of this encounter
--- OUTSIDE RECORDS SUMMARY | 2022-05-02 12:44 | XMS_ITS | Encounter Summary ---
:1950 Author Organization [place] Address [address] [facility] [place] [address] Care Team Providers Name Role Phone Roberto Linder MD Primary Care Provider Encounter Details Date Type Department Care Team Description 01/19/2008 Results Only [facility] Heath More MD [facility]OCRINE CLINIC [facility] [address] [place] [address] (Wo rk) Social History Tobacco Use [...] [address] [place] [phone] (Wo rk) 05/15/2022 Surgery Surgery Neo Torres MD BLEPHAROPLASTY BILATERAL [place] [facility]PP[facility] L IDS, INTERNAL & SURGEONS PA PTOSIS REPAIR BILATERAL [address] [place] [phone] (Wo rk) 06/25/2022 Ancillary Procedure Cardiology Kirk Silver MD [address] [place] [address] (Wo rk) Scheduled Procedures Name Priority Associated Diagnoses Date/Time REPAIR, PTOSIS, BILATERAL, Dermatochalas is 05/15/2022 7:30 AM CDT WITH BILATERAL BLEPHAROPLASTY 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 documented in this encounter Results ECHO HEART, FULL STRESS/REST (01/19/2008 10:11 AM CDT) [facility] Method Time Signature [facility] Interpretation Summary RESULTS Would consider a stress nuclear exam. THIS IS A NORMAL STRESS ECHOCARDIOGRAM. THIS IS AN ABNORMAL STRESS EKG as the patient manifested >2mm ST segment depressio n in the inferior and lateral lead(s). ?? These ST depressions resolve in less than 1 minute post exercise and this quick recovery tends to be less diagnostic or more ??normal variant ST changes. ??These changes are abnormal but nondiagnostic Normal resting wall motion and no stress-induced wall motion abnormality. The vi sual ejection fraction is estimated at >70%. This was a normal stress echocardiogram. Would consider a stress nuclear exam or CT coronary angiogra phy of concern for CAD persists. PatientHeight: 71 in PatientWeight: 220 lbs SystolicPressure: 144 mmHg DiastolicPressure: 88 mmHg HeartRate: 62 bpm BSA 2.2 m^2 Baseline The patient is in normal sinus rhythm. Resting ECG is normal. No regional wall motion abnormalities noted. The resting phase of the study was normal. The visual ejection fraction is estimated at 55-60%. Stress The patient exhibited no chest pain during exercise. Exercise was stopped due to fatigue. The patient exercised 11:03. Target Heart Rate was achieved. A treadmill exercise test according to the Vinod protocol wa s performed. There was >2mm ST segment depression in the inferior lead(s) . There was >2mm ST segment depression in the lateral lead(s). No arrhythmia noted. Normal resting wall motion and no stress-induced wall motion abnormality. The visual ejection fraction is estimated at >70%. This was a normal stress echocardiogram. Left ventricular cavity size decreases with exercise. Global LV systolic function augments with exercise. Procedure Stress Echo Complete. Stress Results Protocol: ??Vinod Protocol Target HR: 138 bpm ?Maximum Predicted HR: 1 62 bpm Stage ?Duration(mm:ss) ??HR(bpm) ?? BP ?DOSE ??Comment ? 03:00 ?85 ?138/86 ? 03:00 ?109 ? 158/80 ? 03:00 ?136 ? 165/78 ? 02:04 ?153 ? 182/78 ?max BP, fatigue, no CP with exercise Recovery ? 12:49 ?84 ?138/75 ?RPP [id number] Stress Duration: 11:03 mm:ss ??Recovery Time: 12:49 mm:ss Maximum Stress HR: 153 bpm ?METS: 13 Interpreting Physician: ??Charanjit Minaya MD electronically signed on 01-19-2008 11:43:06 Specimen (Source) Anatomical Collection Method Collection Time Re ceived Time Location / / Volume Laterality 01/19/2008 10:11 AM CDT J Andreas More MD SPECIAL IMAGING STUDIES Performing Organization Address City/State/ZIP Code Phon e Number RADIOLOGY RESULTS documented in this encounter Visit Diagnoses Not on filedocumented in this encounter Care Teams Dynamite Cartridge Crimper Relationship Specialty Start Date End Date Roberto Linder MD PCP - General 12/29/02 08/20/[address] [address] documented as of this encounter
--- OUTSIDE RECORDS SUMMARY | 2022-05-02 12:44 | XMS_ITS | Encounter Summary ---
:1950 Author Organization [place] Address [address] [place] [address] Care Team Providers Name Role Phone Roberto Linder MD Primary Care Provider Encounter Details Date Type Department Care Team Description 11/08/2004 Abstract [facility] [place], [facility] f rom Endocrinology Clinic [facility] [address] [place] [address] Social History Tobacco Use Types [...] [address] [place] [phone] (Wo rk) 05/15/2022 Surgery Surgery Neo Torres MD BLEPHAROPLASTY BILATERAL [place] [facility] IDS, INTERNAL & SURGEONS PA PTOSIS REPAIR BILATERAL [address] [place] [address] (Wo rk) 06/25/2022 Ancillary Procedure Cardiology Kirk Silver MD [address] [place] [address] (Wo rk) Scheduled Procedures Name Priority Associated Diagnoses Date/Time REPAIR, PTOSIS, BILATERAL, Dermatochalas is 05/15/2022 7:30 AM CDT WITH BILATERAL BLEPHAROPLASTY 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
--- OUTSIDE RECORDS SUMMARY | 2022-05-02 12:44 | XMS_ITS | Encounter Summary ---
:1950 Author Organization [place] Address [address] [facility] [place] [address] Care Team Providers Name Role Phone Roberto Linder MD Primary Care Provider [facility], [place] Primary Care Provider [phone] Anatoliy Jackson MD Primary Care Provider Heath More MD Unavailable Peter Gipson MD Unavailable Encounter Details Date Type Department Care Team Description 01/19/2008 Historic Results [facility] Heart Unknown, [place] [id number] [facility] [address] [place] [address] Social History [...] MD [facility] [address] [facility] [address] [place] [address] (Wo rk) 05/15/2022 Surgery Surgery Neo Torres MD BLEPHAROPLASTY BILATERAL [place] [facility] IDS, INTERNAL & SURGEONS PA PTOSIS REPAIR BILATERAL [address] [place] [id number] (Wo rk) 06/25/2022 Ancillary Procedure Cardiology Kirk Silver MD [address] [place] [address] (Wo rk) Scheduled Procedures Name Priority Associated [...] Comme nts ECHO CARDIAC - HIM SCAN 01/19/2008 12:00 AM CDT - ARCHIVE documented in this encounter Results ECHO CARDIAC - HIM SCAN - ARCHIVE (01/19/2008 12:00 AM CDT) Specimen (Source) Anatomical Location Collection Method / Collectio n Time Received Time / Laterality Volume 01/19/2008 Narrative This result has an attachment that is no t available. Provider Scan CV ECHO ORDERABLES documented in this encounter Visit Diagnoses Not on filedocumented in this encounter Care Teams Smocker Relationship Specialty Start Date End Date Roberto Linder MD PCP - General 12/29/02 08/20/[address] [place] [address] Bandar Siddiqi PCP - General 08/21/11 05/13/12 [place] [address] [place], [place] [id number] Anatoliy Jackson MD PCP - General 05/14/12 Heath More, PCP - Internal Medicine INTERNAL MEDICINE - ENDOCRINOLOGY, [facility] [address] [facility] [address] [place] [phone] Peter Gipson, PCP - Urology 04/02/15 [facility] [address] [place] [address] documented as of this encounter
--- OUTSIDE RECORDS SUMMARY | 2022-05-02 12:44 | XMS_ITS | Encounter Summary ---
:1950 Author Organization [place] Address [address] [facility] [address] Care Team Providers Name Role Phone Roberto Linder MD Primary Care Provider Encounter Details Date Type Department Care Team Description 10/15/2004 [facility] Roberto Linder MD DIAGNOSIS NOT YET Clinic [place] [address] DEFINED (Primary Dx) [address] [place], [place] [address] [phone] Social History Tobacco Use Types Packs/Day Years [...] [address] [place] [address] (Wo rk) 06/25/2022 Ancillary Procedure Cardiology Kirk Silver MD [address] [place] [address] (Wo rk) Scheduled Procedures Name Priority [...] Name Priority Date/Time Associated Diagnosis Comme nts STRESS ECHO ([facility]RO) Routine 10/15/2004 DIAGNOSIS NOT YET DEF INED documented in this encounter Results STRESS ECHO ([facility]) (10/15/2004) Anatomical Region Laterality Modality Other Specimen (Source) Anatomical Location Collection Method / Collectio n Time Received Time / Laterality Volume 10/15/2004 Narrative This result has an attachment that is no t available. 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
--- OUTSIDE RECORDS SUMMARY | 2022-05-02 12:44 | XMS_ITS | Encounter Summary ---
:1950 Author Organization [place] Address [address] [facility] [place] [address] Care Team Providers Name Role Phone Roberto Linder MD Primary Care Provider Reason for Visit Reason Onset Date Comments Refill Request 07/08/2005 lantus Encounter Details Date Type Department Care Team Description 07/08/2005 Refill [facility] Roberto Linder MD Refill Request (lantus) [facility] [place] [address] [facility] 303 [facility] [address] [place], [place] [address] [phone] Social History Tobacco Use Types Packs/Day Years Used Date Never Smoker Alcohol Use Standard Drinks/Week Comments Yes 0 (1 standard drink = 0.6 oz pure alcoho l) occasionally Sex Assigned at Date Recorded Male 03/12/2021 12:11 PM CDT documented as of this encounter Miscellaneous Notes Telephone Encounter - Roberto Linder - 07/10/2005 7:00 PM CST Spoke with pt. He will ask endocrine to forward most recent consult and lab results to us. Advised him that ideally it would be good to see him for an office appt as well. [facility] Telephone Encounter - Daphnie Harding - 07/09/2005 1:30 PM CST pt is being followed by endocrin. He will call and have them do the rx. Do you still want him to have an appointment with you? [facility] Telephone Encounter - Roberto Linder - 07/09/2005 10:00 AM CST Needs f/u appt with me JOSÉ MIGUEL. Need to update fasting labs. Please advise pt. I can offer one month supply of Lantus if he will run out. [facility] Telephone Encounter - Enriqueta Thomas - 07/08/2005 8:35 AM CST last fill 09/19/04--nurse cannot refill d/t last a1c too high. auth. needed for refill. [facility] documented in this encounter Plan of Treatment Upcoming Encounters Date Type Specialty Care Team Description 05/15/2022 Hospital Encounter Surgery Singh Torres MD [facility] [address] [place] [phone] (Rosalva rk) 05/15/2022 Surgery Surgery Neo Torres MD BLEPHAROPLASTY BILATERAL [place] [facility] IDS, INTERNAL & SURGEONS PA PTOSIS REPAIR BILATERAL [address] [place] [address] [phone] (Wo rk) 06/25/2022 Ancillary Procedure Cardiology Kirk Silver MD [address] [place] [phone] (Wo rk) Scheduled Procedures Name Priority Associated [...] on filedocumented in this encounter Care Teams Wood Crew Supervisor Relationship Specialty Start Date End Date Roberto Linder MD PCP - General 12/29/02 08/20/11 [address] [facility] [address] [place] [address] documented as of this encounter
--- OUTSIDE RECORDS SUMMARY | 2022-05-02 12:45 | XMS_ITS | Encounter Summary ---
:1950 Author Organization [place] Address [address] [facility] [place] [address] Care Team Providers Name Role Phone Carmel Linder MD Primary Care Provider Reason for Visit Reason Comments Refill Request Encounter Details Date Type Department Care Team Description 11/21/2003 Refill [facility] Carmel Linder MD Refill Request [place] [address] [facility] [address] [place] [address] [place] [address] [phone] Social History Tobacco Use Types Packs/Day Years Used Date Never Smoker Alcohol Use Standard Drinks/Week Comments No 0 (1 standard drink = 0.6 oz pure alcoho l) Sex Assigned at Date Recorded Male 03/12/2021 12:11 PM CDT documented as of this encounter Miscellaneous Notes Telephone Encounter - 11/21/2003 11:59 PM CDT >> ELINOR LAGOS ThuNov 22, 2003 2:07 PM patient advised-will make appointment >> CARMEL LINDER ThuNov 22, 2003 1:43 PM In August I asked pt to return in 3 mos. Will refill for one month. Needs appt. Please advise pt. >> YANICK La Nov 21, 2003 9:34 AM >> CALL RECEIVED. Contact: pharmacy last fill 10/19/03--nurse cannot approve d/t A1C exceeds our guidelines. documented in this encounter Plan of Treatment Upcoming Encounters Date Type Specialty Care Team Description 05/15/2022 Hospital Encounter Surgery Singh Torres MD [facility] [address] [place] [address] (Wo rk) 05/15/2022 Surgery Surgery Neo Torres MD BLEPHAROPLASTY BILATERAL [place] [facility] IDS, INTERNAL & SURGEONS PA PTOSIS REPAIR BILATERAL [address] [place] [address] (Wo rk) 06/25/2022 Ancillary Procedure Cardiology Kirk Silver MD [address] [place] [address] (Wo rk) Scheduled Procedures Name Priority Associated [...] filedocumented in this encounter Care Teams Software Engineer Web Services Relationship Specialty Start Date End Date Carmel Linder MD PCP - General 12/29/02 08/20/11 [address] [facility] [address] [place], [place] [address] documented as of this encounter
--- OUTSIDE RECORDS SUMMARY | 2022-05-02 12:45 | XMS_ITS | Encounter Summary ---
:1950 Author Organization [place] Address [address] [facility] [address] Care Team Providers Name Role Phone Roberto Linder MD Primary Care Provider Encounter Details Date Type Department Care Team Description 08/08/2003 [facility] CELESTINE BETES UNCOMPL ADULT-TYPE II; [facility] HYPERLIPIDEMIA NEC/NOS [address] [place] [address] Social History Tobacco Use Types [...] [address] [place], [place] [address] (Wo rk) 05/15/2022 Surgery Surgery Neo Torres MD BLEPHAROPLASTY BILATERAL [place] [facility] IDS, INTERNAL & SURGEONS PA PTOSIS REPAIR BILATERAL [address] [place] [address] (Wo rk) 06/25/2022 Ancillary Procedure Cardiology Kirk Silver MD [address] [place] [address] (Wo rk) Scheduled Procedures Name Priority Associated [...] Diagnosis Comme nts HCL BASIC METABOLIC Routine 08/08/2003 8:00 AM Diabetes Uncomp l Results for this PANEL MANAGER OF CASE Adult-Type Ii procedure are in Hyperlipidemia Nec/Nos the r esults section. HCL GLYCATED Routine 08/08/2003 8:00 AM Diabetes Uncompl Resul ts for this HEMOGLOBIN MANAGER OF CASE Adult-Type Ii procedure are in Hyperlipidemia Nec/Nos the r esults section. HCL ALT Routine 08/08/2003 8:00 AM Hyperlipidemi a Nec/Nos Results for this MANAGER OF CASE Diabetes Uncompl procedure a re in Adult-Type Ii the results section. CL AFF A.M.A. LIPID Routine 08/08/2003 8:00 AM Hyperlipi demia Nec/Nos Results for this PANEL MANAGER OF CASE Diabetes Uncompl procedure a re in Adult-Type Ii the results section. documented in this encounter Results ALANINE AMINO (ALT) (SGPT) (08/08/2003 8:00 AM MANAGER OF CASE) P athologist Signature ALT 34 0 - 70 U/L [facility] Specimen Anatomical Collection Method Collection Time Receive d Time (Source) Location / / Volume Laterality 08/08/2003 8:00 AM 3 8:05 MANAGER OF CASE AM MANAGER OF CASE Roberto Linder MD LABORATORY Performing Organization Address City/State/ZIP Code Phon e Number [address] [place] [address] [facility] (ABNORMAL) A.M.A. BASIC METABOLIC PANEL (08/08/2003 8:00 AM MANAGER OF CASE) athologist Signature Sodium 142 133 - 144 [place] mmol/L [facility] Potassium 4.2 3.4 - 5.3 [place] mmol/L [facility] Chloride 108 94 - 109 [place] mmol/L [facility] Carbon Dioxide 29 20 - 32 [place] mmol/L [facility] Anion Gap 5 (L) 6 - 17 [place] mmol/L [facility] Glucose 128 (H) 60 - 115 [place] mg/dL [facility] Urea Nitrogen 21 7 - 30 [place] mg/dL [facility] Creatinine 1.00 0.80 - [facility] 1.50 mg/dL [facility] GFR Estimate >80 >80 mL/min [facility] GFR Estimate If >80 >80 mL/min [place] Black [facility] Calcium 8.9 8.5 - 10.4 [place] mg/dL [facility] Specimen Anatomical Collection Method Collection Time Receive d Time (Source) Location / / Volume Laterality 08/08/2003 8:00 AM 3 8:05 MANAGER OF CASE AM MANAGER OF CASE Roberto Linder MD LABORATORY Performing Organization Address City/State/ZIP Code Phon e Number [facility] [address] [place] [address] [facility] (ABNORMAL) A.M.A. LIPID PANEL (08/08/2003 8:00 AM MANAGER OF CASE) athologist Signature Cholesterol 204 (H) <200 mg/dL [facility] Comment: Cholesterol Reference Range: <200 ??The NCEP recommends further ? evaluation of: ? 1. ??Patients with cholesterol ? greater than 200 mg/dL ? if additional risk facto rs ? are present. ? 2. ??All patients with a ? cholesterol greater than ? 240 mg/dL. Triglycerides 195 (H) <150 mg/dL [facility] HDL Cholesterol 42 >40 mg/dL [facility] LDL Cholesterol Calculated 123 <130 mg/dL [facility] VLDL-Cholesterol 39 (H) 0 - 30 mg/dL [place] E [facility] Cholesterol/HDL Ratio 5 0 - 5 [place] RAD [facility] Specimen Anatomical Collection Method Collection Time Receive d Time (Source) Location / / Volume Laterality 08/08/2003 8:00 AM 3 8:05 MANAGER OF CASE AM MANAGER OF CASE Roberto Linder MD LABORATORY Performing Organization Address City/State/ZIP Code Phon e Number [facility] [address] [place] [address] [facility] (ABNORMAL) HEMOGLOBIN A1C (08/08/2003 8:00 AM MANAGER OF CASE) Analysis Performed At Patho logist Time Signature Hemoglobin A1C 10.3 (H) 4.3 - 6.0 [place] % [facility] Specimen Anatomical Collection Method Collection Time Receive d Time (Source) Location / / Volume Laterality 08/08/2003 8:00 AM 3 8:05 MANAGER OF CASE AM MANAGER OF CASE Roberto Linder MD LABORATORY Performing Organization Address City/[facility]/ZIP Code Phon e Number [facility] [address] [place] [address] 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
--- OUTSIDE RECORDS SUMMARY | 2022-05-02 12:45 | XMS_ITS | Encounter Summary ---
:1950 Author Organization [place] Address [address] [facility] [place] [address] Care Team Providers Name Role Phone Roberto Linder MD Primary Care Provider Reason for Visit Reason Comments Refill Request Encounter Details Date Type Department Care Team Description 01/16/2003 [facility] Roberto Linder MD Refill Request [place] [address] [place] [address] [place] [address] [phone] Social History Tobacco Use Types Packs/Day Years Used Date Never Smoker Alcohol Use Standard Drinks/Week Comments No 0 (1 standard drink = 0.6 oz pure alcoho l) Sex Assigned at Date Recorded Male 03/12/2021 12:11 PM CDT documented as of this encounter Miscellaneous Notes Telephone Encounter - 01/16/2003 11:59 PM CDT >> ALEJANDRO LINARES ThuJan 16, 2003 11:09 AM >> CALL RECEIVED. Contact: last filled 12/14/02 documented in this encounter Plan of Treatment Upcoming Encounters Date Type Specialty Care Team Description 05/15/2022 Hospital Encounter Surgery Singh Torres MD [facility] [address] [place] [address] (Wo rk) 05/15/2022 Surgery Surgery Neo Torres MD BLEPHAROPLASTY BILATERAL [facility] PTOSIS REPAIR BILATERAL [address] [place] [id number] (Wo rk) 06/25/2022 Ancillary Procedure Cardiology Kirk Silver MD [address] [place] [id number] (Wo rk) Scheduled Procedures Name Priority Associated [...] on filedocumented in this encounter Care Teams Grating Machine Operator Relationship Specialty Start Date End Date Roberto Linder MD PCP - General 12/29/02 08/20/11 [address] [facility] 160 [place], [place] [address] documented as of this encounter
--- OUTSIDE RECORDS SUMMARY | 2022-05-02 12:45 | XMS_ITS | Encounter Summary ---
:1950 Author Organization [place] Address [address] [facility] [place] [address] Care Team Providers Name Role Phone Doctor, None MD Primary Care Provider Unavailable Reason for Visit Reason Comments Refill Request Encounter Details Date Type Department Care Team Description 12/19/2002 Refill [facility] Roberto Linder MD Refill Request [place] [address] [place] [address] [place] [address] [phone] Social History Tobacco Use Types Packs/Day Years Used Date Never Smoker Alcohol Use Standard Drinks/Week Comments No 0 (1 standard drink = 0.6 oz pure alcoho l) Sex Assigned at Date Recorded Male 03/12/2021 12:11 PM CDT documented as of this encounter Miscellaneous Notes Telephone Encounter - 12/19/2002 11:59 PM CDT >> ALEJANDRO RAMESH Mon December 19, 2002 10:15 AM >> CALL RECEIVED. Contact: last fill 11/04/02 documented in this encounter Plan of Treatment Upcoming Encounters Date Type Specialty Care Team Description 05/15/2022 Hospital Encounter Surgery Singh Torres MD [facility] [address] [place] [address] (Wo rk) 05/15/2022 Surgery Surgery Neo Torres MD BLEPHAROPLASTY BILATERAL [facility] PTOSIS REPAIR BILATERAL [address] [place] [address] (Wo rk) 06/25/2022 Ancillary Procedure Cardiology Kirk Silver MD [address] [place] [address] (Wo rk) Scheduled Procedures Name Priority Associated [...] on filedocumented in this encounter Care Teams Maintenance Truck Driver Relationship Specialty Start Date End Date Cara Avelar MD PCP - General 09/24/01 12/28/02 documented as of this encounter
--- OUTSIDE RECORDS SUMMARY | 2022-05-02 12:45 | XMS_ITS | Encounter Summary ---
:1950 Author Organization [place] Address [address] [place] [address] Care Team Providers Name Role Phone Carmel Linder MD Primary Care Provider Reason for Visit Reason Comments Refill Request Encounter Details Date Type Department Care Team Description 02/26/2004 Refill [facility] Carmel Linder MD Refill Request [place] [address] [facility] [address] [place] [address] [place] [address] [phone] Social History Tobacco Use Types Packs/Day Years Used Date Never Smoker Alcohol Use Standard Drinks/Week Comments No 0 (1 standard drink = 0.6 oz pure alcoho l) Sex Assigned at Date Recorded Male 03/12/2021 12:11 PM CDT documented as of this encounter Miscellaneous Notes Telephone Encounter - 02/26/2004 11:59 PM CDT >> DECEMBER YOLIS ThuFeb 27, 2004 7:52 AM left message for patient regarding need for appointment >> CARMEL LINDER ThuFeb 26, 2004 5:45 PM Needs appt--please advise pt. Will fax Rx for one time refill. >> OSORIO UNDERWOOD ThuFeb 26, 2004 3:39 PM >> CALL RECEIVED. Contact: Last fill 01-11-04. Nurse unable to fill rx per standing orders d/t most recent labs outside standing order parameters. documented in this encounter Plan of Treatment Upcoming Encounters Date Type Specialty Care Team Description 05/15/2022 Hospital Encounter Surgery Singh Torres MD [facility] [address] [place] [address] (Wo rk) 05/15/2022 Surgery Surgery Neo Torres MD BLEPHAROPLASTY BILATERAL [facility], [facility] PTOSIS REPAIR BILATERAL [address] [place] [address] (Wo rk) 06/25/2022 Ancillary Procedure Cardiology Kirk Silver MD [address] [place] [id number] (Wo rk) Scheduled Procedures Name Priority Associated [...] on filedocumented in this encounter Care Teams Community Nurse Relationship Specialty Start Date End Date Carmel Linder MD PCP - General 12/29/02 08/20/11 [address] [facility] 160 [place], [place] [address] documented as of this encounter
--- OUTSIDE RECORDS SUMMARY | 2022-05-02 12:45 | XMS_ITS | Encounter Summary ---
:1950 Author Organization [place] Address [address] [place] [address] Care Team Providers Name Role Phone Roberto Linder MD Primary Care Provider Reason for Visit Reason Comments Refill Request Encounter Details Date Type Department Care Team Description 04/11/2003 [facility] Roberto Linder MD Refill Request [place] [address] [place] [address] [place] [address] [phone] Social History Tobacco Use Types Packs/Day Years Used Date Never Smoker Alcohol Use Standard Drinks/Week Comments No 0 (1 standard drink = 0.6 oz pure alcoho l) Sex Assigned at Date Recorded Male 03/12/2021 12:11 PM CDT documented as of this encounter Miscellaneous Notes Telephone Encounter - 04/11/2003 11:59 PM CDT >> YANICK La Apr 11, 2003 2:07 PM >> CALL RECEIVED. Contact: documented in this encounter Plan of Treatment Upcoming Encounters Date Type Specialty Care Team Description 05/15/2022 Hospital Encounter Surgery Singh Torres MD [facility] [address] [place] [address] (Wo rk) 05/15/2022 Surgery Surgery Neo Torres MD BLEPHAROPLASTY BILATERAL [facility] PTOSIS REPAIR BILATERAL [address] [place] [id number] (Wo rk) 06/25/2022 Ancillary Procedure Cardiology Kirk Silver MD [address] [place] [id number] (Wo rk) Scheduled Procedures Name Priority Associated [...] filedocumented in this encounter Care Teams Supervisor Fish Processing Relationship Specialty Start Date End Date Roberto Linder MD PCP - General 12/29/02 08/20/11 [address] [facility] 160 [place], [place] [address] documented as of this encounter
--- OUTSIDE RECORDS SUMMARY | 2022-05-02 12:45 | XMS_ITS | Encounter Summary ---
:1950 Author Organization [place] Address [address] [place] [address] Care Team Providers Name Role Phone Doctor, None MD Primary Care Provider Unavailable Encounter Details Date Type Department Care Team Description 07/16/2002 Orders Only [facility] CELESTINE RAFAEL UNCOMPL [place] [facility] ADULT-TYPE II (Primary Dx) [address] [place] [address] Social History Tobacco Use Types Packs/Day Years Used Date Never Assessed Sex Assigned at Date Recorded Male 03/12/2021 12:11 PM CDT documented as of this encounter Plan of Treatment Upcoming Encounters Date Type Specialty Care Team Description 05/15/2022 Hospital Encounter Surgery Singh Torres MD [facility] [address] [place] [id number] (Wo rk) 05/15/2022 Surgery Surgery Neo Torres MD BLEPHAROPLASTY BILATERAL [facility], INTERNAL & [facility] PTOSIS REPAIR BILATERAL [address] [place] [address] (Wo rk) 06/25/2022 Ancillary Procedure Cardiology Kirk Silver MD [address] [place] [id number] (Wo rk) Scheduled Procedures Name Priority Associated Diagnoses Date/Time REPAIR, PTOSIS, BILATERAL, Dermatochalas is 05/15/2022 7:30 AM CDT WITH BILATERAL BLEPHAROPLASTY 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 HCL GLUCOSE Routine 07/16/2002 8:57 AM Diabetes Uncompl Resul ts for this BELL CLERK Adult-Type Ii procedure are in the results section. documented in this encounter Results (ABNORMAL) GLUCOSE (07/16/2002 8:57 AM BELL CLERK) P athologist Signature Glucose 230 (H) 60 - 115 BRANCH mg/dL [facility] Comment: Results confirmed by repeat mauro t Specimen Anatomical Collection Method Collection Time Receive d Time (Source) Location / / Volume Laterality 07/16/2002 8:57 AM 2 8:58 BELL CLERK AM BELL CLERK Roberto Linder MD LABORATORY Performing Organization Address City/[facility]/ZIP Code Phon e Number [facility] [address] [place], [place] [address] [address] [facility] (ABNORMAL) HEMOGLOBIN A1C (07/16/2002 8:57 AM BELL CLERK) Analysis Performed At Patho logist Time Signature Hemoglobin A1C 10.0 (H) 4.3 - 6.0 [facility] Specimen Anatomical Collection Method Collection Time Receive d Time (Source) Location / / Volume Laterality 07/16/2002 8:57 AM 2 8:58 BELL CLERK AM BELL CLERK Roberto Linder MD LABORATORY Performing Organization Address City/State/ZIP Code Phon e Number 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
--- OUTSIDE RECORDS SUMMARY | 2022-05-02 12:45 | XMS_ITS | Encounter Summary ---
:1950 Author Organization [place] Address [address] [facility] [place] [address] Care Team Providers Name Role Phone Doctor, None MD Primary Care Provider Unavailable Encounter Details Date Type Department Care Team Description 11/09/2002 Orders Only [facility] CELESTINE BETES UNCOMPL ADULT-TYPE II; [facility] MIXED HYPERLIPIDEMIA [address] [place] [address] Social History Tobacco Use Types Packs/Day Years Used Date Never Assessed Sex Assigned at Date Recorded Male 03/12/2021 12:11 PM CDT documented as of this encounter Plan of Treatment Upcoming Encounters Date Type Specialty Care Team Description 05/15/2022 Hospital Encounter Surgery Singh Torres MD [facility] [address] [place] [id number] (Wo rk) 05/15/2022 Surgery Surgery Neo Torres MD BLEPHAROPLASTY BILATERAL [facility], INTERNAL & [facility] PTOSIS REPAIR BILATERAL [address] [place] [address] (Wo rk) 06/25/2022 Ancillary Procedure Cardiology Kirk Silver MD [address] [place] [address] (Wo rk) Scheduled Procedures Name Priority Associated [...] Associated Diagnosis Comme nts HCL GLYCATED Routine 11/09/2002 8:02 AM Diabetes Uncompl Resul ts for this HEMOGLOBIN CUSTOMER EXPERIENCE ANALYST Adult-Type Ii procedure are in the results section. CL AFF A.M.A. LIPID Routine 11/09/2002 8:02 AM Mixed Hyperlipi demia Results for this PANEL CUSTOMER EXPERIENCE ANALYST procedure are i n the results section. documented in this encounter Results (ABNORMAL) A.M.A. LIPID PANEL (11/09/2002 8:02 AM CUSTOMER EXPERIENCE ANALYST) athologist Signature Cholesterol 205 (H) <200 mg/dL [facility] Comment: Cholesterol Reference Range: <200 ??The NCEP recommends further ? evaluation of: ? 1. ??Patients with cholesterol ? greater than 200 mg/dL ? if additional risk facto rs ? are present. ? 2. ??All patients with a ? cholesterol greater than ? 240 mg/dL. Triglycerides 175 (H) <150 mg/dL [facility] HDL Cholesterol 42 >40 mg/dL [facility] LDL Cholesterol Calculated 128 <130 mg/dL [facility] VLDL-Cholesterol 35 (H) 0 - 30 mg/dL [facility] Cholesterol/HDL Ratio 5 0 - 5 [facility] Specimen Anatomical Collection Method Collection Time Receive d Time (Source) Location / / Volume Laterality 11/09/2002 8:02 AM 3 8:03 CUSTOMER EXPERIENCE ANALYST AM CUSTOMER EXPERIENCE ANALYST Roberto Linder MD LABORATORY Performing Organization Address City/State/ZIP Code Phon e Number [facility] [address] [place] [place] [phone] [facility] (ABNORMAL) HEMOGLOBIN A1C (11/09/2002 8:02 AM CUSTOMER EXPERIENCE ANALYST) Analysis Performed At Patho logist Time Signature Hemoglobin A1C 10.0 (H) 4.3 - 6.0 [facility] Specimen Anatomical Collection Method Collection Time Receive d Time (Source) Location / / Volume Laterality 11/09/2002 8:02 AM 3 8:03 CUSTOMER EXPERIENCE ANALYST AM CUSTOMER EXPERIENCE ANALYST Roberto Linder MD LABORATORY Performing Organization Address City/[facility]/ZIP Code Phon e Number [facility] [address] [place] [place] [address] [facility] documented in this encounter Visit Diagnoses Diagnosis Type II or unspecified 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
--- OUTSIDE RECORDS SUMMARY | 2022-05-02 12:45 | XMS_ITS | Encounter Summary ---
:1950 Author Organization [place] Address [address] [facility] [place] [address] Care Team Providers Name Role Phone Doctor, None MD Primary Care Provider Unavailable Reason for Visit Reason Comments Other needs another copy of med ev al form that had been completed Encounter Details Date Type Department Care Team Description 01/28/2002 Telephone [facility] Roberto Linder MD Other (needs another Clinic [place] [address] copy of med eval form [address] [place] [address] completed) [place], [place] [phone] (Wo rk) [address] [phone] Social History Tobacco Use Types Packs/Day Years Used Date Never Assessed Sex Assigned at Date Recorded Male 03/12/2021 12:11 PM CDT documented as of this encounter Miscellaneous Notes Telephone Encounter - 01/28/2002 11:59 PM CDT >> ARIELLA DAVIS ThuJan 31, 2002 4:58 PM copy of msg. and chart given to 344 to complete Ariella Davis RN >> COCO ALBARRAN ThuJan 28, 2002 6:09 PM chart requested to find form. >> SADE GROSSMAN ThuJan 28, 2002 9:02 AM >> CALL RECEIVED. Contact: State never received the copy that the patient mailed previously. Needs another copy faxed to him so he can take it to him. fax--[phone]. work number is [phone]--please call when you fax it. documented in this encounter Plan of Treatment Upcoming Encounters Date Type Specialty Care Team Description 05/15/2022 Hospital Encounter Surgery Singh Torres MD [facility] [address] [place] [address] (Wo rk) 05/15/2022 Surgery Surgery Neo Torres MD BLEPHAROPLASTY BILATERAL [facility], INTER[facility] & [facility] PTOSIS REPAIR BILATERAL [address] [place] [address] (Wo rk) 06/25/2022 Ancillary Procedure Cardiology Kirk Silver MD [address] [place] [id number] (Wo rk) Scheduled Procedures Name Priority Associated [...] on filedocumented in this encounter Care Teams Cell Support Operator Relationship Specialty Start Date End Date Cara Avelar MD PCP - General 09/24/01 12/28/02 documented as of this encounter
--- OUTSIDE RECORDS SUMMARY | 2022-05-02 12:45 | XMS_ITS | Encounter Summary ---
:1950 Author Organization [place] Address [address] [facility] [place] [address] Care Team Providers Name Role Phone Roberto Linder MD Primary Care Provider Reason for Visit Reason Comments Refill Request Encounter Details Date Type Department Care Team Description 08/09/2003 [facility] Roberto Linder MD Refill Request [place] [address] [place] [address] [place] [address] [phone] Social History Tobacco Use Types Packs/Day Years Used Date Never Smoker Alcohol Use Standard Drinks/Week Comments No 0 (1 standard drink = 0.6 oz pure alcoho l) Sex Assigned at Date Recorded Male 03/12/2021 12:11 PM CDT documented as of this encounter Miscellaneous Notes Telephone Encounter - 08/09/2003 11:59 PM FRONT COUNTER CLERK >> COCORADHA ALBARRAN ThuAug 09, 2003 11:26 AM >> CALL RECEIVED. Contact: last fill 04/29/03 documented in this encounter Plan of Treatment Upcoming Encounters Date Type Specialty Care Team Description 05/15/2022 Hospital Encounter Surgery Singh Torres MD [facility] [address] [place] [address] (Wo rk) 05/15/2022 Surgery Surgery Neo Torres MD BLEPHAROPLASTY BILATERAL [facility] PTOSIS REPAIR BILATERAL [address] [place] [address] (Wo rk) 06/25/2022 Ancillary Procedure Cardiology Kirk Silver MD [address] [place] [id number] (Wo rk) Scheduled Procedures Name Priority Associated [...] filedocumented in this encounter Care Teams Freight Separator Relationship Specialty Start Date End Date Roberto Linder MD PCP - General 12/29/02 08/20/11 [address] [facility] 160 [place], [place] [address] documented as of this encounter
--- OUTSIDE RECORDS SUMMARY | 2022-05-02 12:45 | XMS_ITS | Encounter Summary ---
:1950 Author Organization [place] Address [address] [facility] [place] [address] Care Team Providers Name Role Phone Roberto Linder MD Primary Care Provider Reason for Visit Reason Comments Refill Request Encounter Details Date Type Department Care Team Description 08/16/2003 [facility] Roberto Linder MD Refill Request [place] [address] [place] [address] [place] [address] [phone] Social History Tobacco Use Types Packs/Day Years Used Date Never Smoker Alcohol Use Standard Drinks/Week Comments No 0 (1 standard drink = 0.6 oz pure alcoho l) Sex Assigned at Date Recorded Male 03/12/2021 12:11 PM CDT documented as of this encounter Miscellaneous Notes Telephone Encounter - 08/16/2003 11:59 PM DISC PAD GRINDING MACHINE FEEDER >> COCORADHA CARLINER ThuAug 16, 2003 12:02 PM >> CALL RECEIVED. Contact: documented in this encounter Plan of Treatment Upcoming Encounters Date Type Specialty Care Team Description 05/15/2022 Hospital Encounter Surgery Singh Torres MD [facility] [address] [place] [address] (Wo rk) 05/15/2022 Surgery Surgery Neo Torres MD BLEPHAROPLASTY BILATERAL [facility], INTER[facility] & SURGE[facility] PTOSIS REPAIR BILATERAL [address] [place] [id number] (Wo rk) 06/25/2022 Ancillary Procedure Cardiology Kirk Silver MD [address] [place] [id number] (Wo rk) Scheduled Procedures Name Priority Associated [...] on filedocumented in this encounter Care Teams Client Relations Representative Relationship Specialty Start Date End Date Roberto Linder MD PCP - General 12/29/02 08/20/11 [address] [facility] 160 [place], [place] [address] documented as of this encounter
--- OUTSIDE RECORDS SUMMARY | 2022-05-02 12:45 | XMS_ITS | Encounter Summary ---
:1950 Author Organization [place] Address [address] [facility] [place] [place] [address] Care Team Providers Name Role Phone Doctor, None MD Primary Care Provider Unavailable Reason for Visit Reason Comments Refill Request Encounter Details Date Type Department Care Team Description 12/14/[address] [facility] Roberto Linder MD Refill Request [place] [address] [place] [address] [place] [address] [phone] Social History Tobacco Use Types Packs/Day Years Used Date Never Smoker Alcohol Use Standard Drinks/Week Comments No 0 (1 standard drink = 0.6 oz pure alcoho l) Sex Assigned at Date Recorded Male 03/12/2021 12:11 PM CDT documented as of this encounter Miscellaneous Notes Telephone Encounter - 12/14/2002 11:59 PM CDT >> ALEJANDRO LINARES Wed December 14, 2002 12:17 PM >> CALL RECEIVED. Contact: last filled 11/09/02 documented in this encounter Plan of Treatment Upcoming Encounters Date Type Specialty Care Team Description 05/15/2022 Hospital Encounter Surgery Singh Torres MD [facility] [address] [place] [address] (Wo rk) 05/15/2022 Surgery Surgery Neo Torres MD BLEPHAROPLASTY BILATERAL [facility], INTERNAL & SURGEONS PA PTOSIS REPAIR BILATERAL [address] [place] [address] (Wo rk) 06/25/2022 Ancillary Procedure Cardiology Kirk Silver MD [address] [place] [address] (Wo rk) Scheduled Procedures Name Priority Associated [...] on filedocumented in this encounter Care Teams Explosive Ordnance Disposal Technician Relationship Specialty Start Date End Date Cara Avelar MD PCP - General 09/24/01 12/28/02 documented as of this encounter
--- OUTSIDE RECORDS SUMMARY | 2022-05-02 12:45 | XMS_ITS | Encounter Summary ---
:1950 Author Organization [place] Address [address] [facility] [place] [address] Care Team Providers Name Role Phone Doctor, None MD Primary Care Provider Unavailable Encounter Details Date Type Department Care Team Description 11/04/2002 Orders Only [facility] Roberto Linder, MIXED HYPERLIPIDEMIA [facility] [place] [facility] (Primary Dx) [address] [place] [facility] [address] [place] [address] [phone] Social History Tobacco Use Types Packs/Day Years Used Date Never Assessed Sex Assigned at Date Recorded Male 03/12/2021 12:11 PM CDT documented as of this encounter Progress Notes 11/04/2002 11:59 PM PRODUCTION FINISHER documented in this encounter Plan of Treatment Upcoming Encounters Date Type Specialty Care Team Description 05/15/2022 Hospital Encounter Surgery Singh Torres MD [facility] [address] [place] [address] (Wo rk) 05/15/2022 Surgery Surgery Neo Torres MD BLEPHAROPLASTY BILATERAL [facility], [facility] PTOSIS REPAIR BILATERAL [address] [place] [address] (Wo rk) 06/25/2022 Ancillary Procedure Cardiology Kirk Silver MD [address] [place] [address] (Wo rk) Scheduled Procedures Name Priority Associated Diagnoses Date/Time REPAIR, PTOSIS, BILATERAL, Dermatochalas is 05/15/2022 7:30 AM CDT WITH BILATERAL BLEPHAROPLASTY 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
--- OUTSIDE RECORDS SUMMARY | 2022-05-02 12:45 | XMS_ITS | Encounter Summary ---
:1950 Author Organization [place] Address [address] [place] [address] Care Team Providers Name Role Phone Doctor, None MD Primary Care Provider Unavailable Reason for Visit Reason Comments Refill Request Encounter Details Date Type Department Care Team Description 06/03/2002 Refill [facility] Carmel Linder MD Refill Request [place] [address] [facility] [address] [place] [address] [place] [address] [phone] Social History Tobacco Use Types Packs/Day Years Used Date Never Assessed Sex Assigned at Date Recorded Male 03/12/2021 12:11 PM CDT documented as of this encounter Miscellaneous Notes Telephone Encounter - 06/03/2002 11:59 PM CDT >> CARMEL LINDER Fri Jun 03, 2002 2:03 PM Okayed rx. >> MAGGI CASTANEDA Fri Jun 03, 2002 12:50 PM >> CALL RECEIVED. Contact: Pharm did not call in directions with refill request. The chart has been requested. Pharm had originally called RX into Dr. Schmidt 05-26-02. Was just notified that Dr. Linder will address. documented in this encounter Plan of Treatment Upcoming Encounters Date Type Specialty Care Team Description 05/15/2022 Hospital Encounter Surgery Singh Torres MD [facility] [address] [place] [address] (Wo rk) 05/15/2022 Surgery Surgery Neo Torres MD BLEPHAROPLASTY BILATERAL [facility], INTERNAL & [facility] PTOSIS REPAIR BILATERAL [address] [place] [address] (Wo rk) 06/25/2022 Ancillary Procedure Cardiology Kirk Silver MD [address] [place] [address] (Wo rk) Scheduled Procedures Name Priority Associated [...] on filedocumented in this encounter Care Teams Doubler Operator Relationship Specialty Start Date End Date Doctor, Cara, PCP - General 09/24/01 12/28/02 documented as of this encounter
--- OUTSIDE RECORDS SUMMARY | 2022-05-02 12:45 | XMS_ITS | Encounter Summary ---
:1950 Author Organization [place] Address [address] [facility] [place] [address] Care Team Providers Name Role Phone Roberto Linder MD Primary Care Provider Encounter Details Date Type Department Care Team Description 03/14/2004 [facility] HYP ERLIPIDEMIA NEC/NOS [place] [facility] (Primary Dx) [address] [place] [address] Social History Tobacco Use Types [...] [address] [place] [id number] (Wo rk) 05/15/2022 Surgery Surgery Neo Torres MD BLEPHAROPLASTY BILATERAL [facility], INTERNAL & [facility]GE[facility] PTOSIS REPAIR BILATERAL [address] [place] [id number] (Wo rk) 06/25/2022 Ancillary Procedure Cardiology Kirk Silver MD [address] [place] [address] (Wo rk) Scheduled Procedures Name Priority Associated [...] Priority Date/Time Associated Diagnosis Comme nts HCL ALT Routine 03/14/2004 8:08 AM Hyperlipidemia Nec/Nos Results for this CDT procedure are i n the results section. CL AFF A.M.A. Routine 03/14/2004 8:08 AM Hyperlipidemia Nec/No s Results for this LIPID PANEL CDT procedure are i n the results section. documented in this encounter Results ALANINE AMINO (ALT) (SGPT) (03/14/2004 8:08 AM CDT) athologist Signature ALT 41 0 - 70 U/L [facility] Specimen Anatomical Collection Method Collection Time Receive d Time (Source) Location / / Volume Laterality 03/14/2004 8:08 AM 4 8:13 CDT AM CDT Roberto Linder MD LABORATORY Performing Organization Address City/State/ZIP Code Phon e Number [address] [address] [facility] LAB (ABNORMAL) A.M.A. LIPID PANEL (03/14/2004 8:08 AM CDT) athologist Signature Cholesterol 255 (H) <200 mg/dL [facility] Comment: Cholesterol Reference Range: <200 ??The NCEP recommends further ? evaluation of: ? 1. ??Patients with cholesterol ? greater than 200 mg/dL ? if additional risk facto rs ? are present. ? 2. ??All patients with a ? cholesterol greater than ? 240 mg/dL. Triglycerides 140 <150 mg/dL [facility] HDL Cholesterol 42 >40 mg/dL [facility] LDL Cholesterol Calculated 185 (H) 0 - 129 mg/dL [facility] VLDL-Cholesterol 28 0 - 30 mg/dL [facility] Cholesterol/HDL Ratio 6.1 (H) 0.0 - 5.0 [facility] Specimen Anatomical Collection Method Collection Time Receive d Time (Source) Location / / Volume Laterality 03/14/2004 8:08 AM 4 8:13 CDT AM CDT Roberto Linder MD LABORATORY Performing Organization Address City/State/ZIP Code Phon e Number [facility] [address] [place] [address] [facility] documented in this encounter Visit Diagnoses Diagnosis Other and unspecified hyperlipidemia - P rimary 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
--- OUTSIDE RECORDS SUMMARY | 2022-05-02 12:45 | XMS_ITS | Encounter Summary ---
:1950 Author Organization [place] Address [address] [place] [address] Care Team Providers Name Role Phone Roberto Linder MD Primary Care Provider Reason for Visit Reason Comments Refill Request Encounter Details Date Type Department Care Team Description 01/20/2003 [facility] Roberto Linder MD Refill Request [place] [address] [place] [address] [place] [address] [phone] Social History Tobacco Use Types Packs/Day Years Used Date Never Smoker Alcohol Use Standard Drinks/Week Comments No 0 (1 standard drink = 0.6 oz pure alcoho l) Sex Assigned at Date Recorded Male 03/12/2021 12:11 PM CDT documented as of this encounter Miscellaneous Notes Telephone Encounter - 01/20/2003 11:59 PM CDT >> LIANA MUÑIZ ThuJan 20, 2003 9:48 AM >> CALL RECEIVED. Contact: last filled 12-04-02 documented in this encounter Plan of Treatment Upcoming Encounters Date Type Specialty Care Team Description 05/15/2022 Hospital Encounter Surgery Singh Torres MD [facility] [address] [place] [address] (Wo rk) 05/15/2022 Surgery Surgery Neo Torres MD BLEPHAROPLASTY BILATERAL [place], INTERNAL & SURGE[facility] PTOSIS REPAIR BILATERAL [address] [place] [address] (Wo rk) 06/25/2022 Ancillary Procedure Cardiology Kirk Silver MD [address] [place] [id number] (Wo rk) Scheduled Procedures Name Priority Associated [...] on filedocumented in this encounter Care Teams Last Scourer Relationship Specialty Start Date End Date Roberto Linder MD PCP - General 12/29/02 08/20/[address] [place], [place] [id number] documented as of this encounter
--- OUTSIDE RECORDS SUMMARY | 2022-05-02 12:45 | XMS_ITS | Encounter Summary ---
:1950 Author Organization [place] Address [address] [place] [address] Care Team Providers Name Role Phone Carmel Linder MD Primary Care Provider Reason for Visit Reason Comments Blood Draw Encounter Details Date Type Department Care Team Description 07/05/2003 Telephone [facility] Carmel Linder MD Blood Draw [place] [address] [facility] [address] [place] [address] [place] [address] [phone] Social History Tobacco Use Types Packs/Day Years Used Date Never Smoker Alcohol Use Standard Drinks/Week Comments No 0 (1 standard drink = 0.6 oz pure alcoho l) Sex Assigned at Date Recorded Male 03/12/2021 12:11 PM CDT documented as of this encounter Miscellaneous Notes Telephone Encounter - 07/05/2003 11:59 PM GLOST KILN OPERATOR >> CRISTOPHER SONI ThuJul 11, 2003 9:51 AM Advised >> CARMEL LINDER willie Jul 11, 2003 8:15 AM Reordered future labs--please advise pt. >> YARON Charles Jul 05, 2003 2:22 PM >> CALL RECEIVED. Contact: home Pt would like labs drawn prior to DM f/u appt 08/15/03. Has standing HGBA1C order good until 07/28/03; do you want any other labs drawn before this appt? Please advise. (When pt is called let him know the order is good until 07/28 and will need extension if done after that date.) documented in this encounter Plan of Treatment Upcoming Encounters Date Type Specialty Care Team Description 05/15/2022 Hospital Encounter Surgery Singh Torres MD [facility] [address] [place] [address] (Wo rk) 05/15/2022 Surgery Surgery Neo Torres MD BLEPHAROPLASTY BILATERAL [place] [facility], INTERNAL & SURGEONS [facility] PTOSIS REPAIR BILATERAL [address] [place] [id number] (Wo rk) 06/25/2022 Ancillary Procedure Cardiology Kirk Silver MD [address] [place] [address] (Wo rk) Scheduled Procedures Name Priority Associated [...] ptosis documented in this encounter Care Teams Engine Inspector Relationship Specialty Start Date End Date Careml Linder MD PCP - General 12/29/02 08/20/11 [address] [place] [address] documented as of this encounter
--- OUTSIDE RECORDS SUMMARY | 2022-05-02 12:45 | XMS_ITS | Encounter Summary ---
:1950 Author Organization [place] Address [address] [place] [address] Care Team Providers Name Role Phone Doctor, None MD Primary Care Provider Unavailable Reason for Visit Reason Comments Refill Request Encounter Details Date Type Department Care Team Description 02/07/2002 Refill [facility] Roberto Linder MD Refill Request [place] [address] [facility] [address] [address] [place] [address] [phone] Social History Tobacco Use Types Packs/Day Years Used Date Never Assessed Sex Assigned at Date Recorded Male 03/12/2021 12:11 PM CDT documented as of this encounter Miscellaneous Notes Telephone Encounter - 02/07/2002 11:59 PM CDT >> MAGGI CASTANEDA Mon Feb 07, 2002 1:57 PM >> CALL RECEIVED. Contact: The chart has been requested. documented in this encounter Plan of Treatment Upcoming Encounters Date Type Specialty Care Team Description 05/15/2022 Hospital Encounter Surgery Singh Torres MD [facility] [address] [place] [address] (Wo rk) 05/15/2022 Surgery Surgery Neo Torres MD BLEPHAROPLASTY BILATERAL [facility], INTERNAL & SURGEONS [facility] PTOSIS REPAIR BILATERAL [address] [place] [address] (Wo rk) 06/25/2022 Ancillary Procedure Cardiology Kirk Silver MD [address] [place] [address] (Wo rk) Scheduled Procedures Name Priority Associated [...] on filedocumented in this encounter Care Teams Direct Sales Consultant Relationship Specialty Start Date End Date Doctor, Cara, PCP - General 09/24/01 12/28/02 documented as of this encounter
--- OUTSIDE RECORDS SUMMARY | 2022-05-02 12:45 | XMS_ITS | Encounter Summary ---
:1950 Author Organization [place] Address [address] [facility] [place] [address] Care Team Providers Name Role Phone Roberto Linder MD Primary Care Provider Reason for Visit Reason Comments Refill Request Encounter Details Date Type Department Care Team Description 11/21/2003 [facility] Roberto Linder MD Refill Request [place] [address] [facility] [address] [place] [address] [place] [address] [phone] Social History Tobacco Use Types Packs/Day Years Used Date Never Smoker Alcohol Use Standard Drinks/Week Comments No 0 (1 standard drink = 0.6 oz pure alcoho l) Sex Assigned at Date Recorded Male 03/12/2021 12:11 PM CDT documented as of this encounter Miscellaneous Notes Telephone Encounter - 11/21/2003 11:59 PM CDT >> YANICK La Nov 21, 2003 9:33 AM >> CALL RECEIVED. Contact: PHARMACY last fill 10/19/03--APPROVED January--LABS entered into the computer. documented in this encounter Plan of Treatment Upcoming Encounters Date Type Specialty Care Team Description 05/15/2022 Hospital Encounter Surgery Singh Torres MD [facility] [address] [place] [address] (Wo rk) 05/15/2022 Surgery Surgery Neo Torres MD BLEPHAROPLASTY BILATERAL [place] [facility], INTERNAL & SURGEONS PA PTOSIS REPAIR BILATERAL [address] [place] [address] (Wo rk) 06/25/2022 Ancillary Procedure Cardiology Kirk Silver MD [address] [place] [address] (Wo rk) Scheduled Procedures Name Priority Associated Diagnoses Date/Time REPAIR, PTOSIS, BILATERAL, Dermatochalas is 05/15/2022 7:30 AM CDT WITH BILATERAL BLEPHAROPLASTY 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 REPAIR, ECTROPION, EYE, Dermatochalasis 05/15/2022 7:30 AM CDT BILATERAL 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
--- OUTSIDE RECORDS SUMMARY | 2022-05-02 12:45 | XMS_ITS | Encounter Summary ---
:1950 Author Organization [place] Address [address] [facility] [place] [address] Care Team Providers Name Role Phone Doctor, None MD Primary Care Provider Unavailable Encounter Details Date Type Department Care Team Description 02/08/2002 Abstract [facility] Roberto Linder MD [place] [address] [facility] [address] [place] [address] [place] [address] [phone] Social History Tobacco Use Types Packs/Day Years Used Date Never Assessed Sex Assigned at Date Recorded Male 03/12/2021 12:11 PM CDT documented as of this encounter Plan of Treatment Upcoming Encounters Date Type Specialty Care Team Description 05/15/2022 Hospital Encounter Surgery Singh Torres MD [facility] [address] [place] [address] (Wo rk) 05/15/2022 Surgery Surgery Neo Torres MD BLEPHAROPLASTY BILATERAL [facility], INTERNAL & SURGEONS PA PTOSIS REPAIR BILATERAL [address] [place] [address] (Wo rk) 06/25/2022 Ancillary Procedure Cardiology Kirk Silver MD [address] [place] [address] (Wo rk) Scheduled Procedures Name Priority Associated [...] on filedocumented in this encounter Care Teams Critical Care Paramedic Relationship Specialty Start Date End Date Doctor, MD Cara PCP - General 09/24/01 12/28/02 documented as of this encounter
--- OUTSIDE RECORDS SUMMARY | 2022-05-02 12:45 | XMS_ITS | Encounter Summary ---
:1950 Author Organization [place] Address [address] [place] [address] Care Team Providers Name Role Phone Roberto Linder MD Primary Care Provider Reason for Visit Reason Comments Refill Request Encounter Details Date Type Department Care Team Description 01/12/2004 Refill [facility] Roberto Linder MD Refill Request [place] [address] [place] [address] [place] [address] [phone] Social History Tobacco Use Types Packs/Day Years Used Date Never Smoker Alcohol Use Standard Drinks/Week Comments No 0 (1 standard drink = 0.6 oz pure alcoho l) Sex Assigned at Date Recorded Male 03/12/2021 12:11 PM CDT documented as of this encounter Miscellaneous Notes Telephone Encounter - 01/12/2004 11:59 PM CDT >> LINDA LEBRON ThuJan 12, 2004 11:49 AM >> CALL RECEIVED. Contact: pharmacy documented in this encounter Plan of Treatment Upcoming Encounters Date Type Specialty Care Team Description 05/15/2022 Hospital Encounter Surgery Singh Torres MD [facility] [address] [place] [address] (Wo rk) 05/15/2022 Surgery Surgery Neo Torres MD BLEPHAROPLASTY BILATERAL [place] [facility], INTERNAL & SURGEONS [facility] PTOSIS REPAIR BILATERAL [address] [place] [id number] (Wo rk) 06/25/2022 Ancillary Procedure Cardiology Kirk Silver MD [address] [place] [address] (Wo rk) Scheduled Procedures Name Priority Associated [...] on filedocumented in this encounter Care Teams Hospice Home Care Coordinator Relationship Specialty Start Date End Date Roberto Linder MD PCP - General 12/29/02 08/20/11 [address] [facility] [address] [place], [place] [address] documented as of this encounter
--- OUTSIDE RECORDS SUMMARY | 2022-05-02 12:45 | XMS_ITS | Encounter Summary ---
:1950 Author Organization [place] Address [address] [place] [address] Care Team Providers Name Role Phone Doctor, None MD Primary Care Provider Unavailable Reason for Visit Reason Comments Refill Request Encounter Details Date Type Department Care Team Description 11/07/2002 Refill [facility] Carmel Linder MD Refill Request [place] [address] [facility] [address] [place] [address] [place] [address] [phone] Social History Tobacco Use Types Packs/Day Years Used Date Never Assessed Sex Assigned at Date Recorded Male 03/12/2021 12:11 PM CDT documented as of this encounter Miscellaneous Notes Telephone Encounter - 11/07/2002 11:59 PM SAND TESTER >> COCO ALBARRAN Leana Nov 10, 2002 8:03 AM Letter mailed with lab results to instruct need for appt. >> CARMEL LINDER ThuNov 09, 2002 4:41 PM Needs appt--please inform pt. Diabetes is poorly controlled. >> COCO ALBARRAN ThuNov 09, 2002 2:14 PM A1C came back at 10 >> JARROD POLK ThuNov 09, 2002 11:40 AM yes. It's in process. >> CARMEL LINDER ThuNov 09, 2002 11:34 AM Was hemoglobin A1C done in lab today along with lipid panel? >> JARROD POLK ThuNov 07, 2002 11:01 AM >> CALL RECEIVED. Contact: last filled 10-01-02 documented in this encounter Plan of Treatment Upcoming Encounters Date Type Specialty Care Team Description 05/15/2022 Hospital Encounter Surgery Singh Torres MD [facility] [address] [place] [address] (Wo rk) 05/15/2022 Surgery Surgery Neo Torres MD BLEPHAROPLASTY BILATERAL [place] [facility], INTERNAL & SURGE[facility] PTOSIS REPAIR BILATERAL [address] [place] [id number] (Wo rk) 06/25/2022 Ancillary Procedure Cardiology Kirk Silver MD [address] [place] [id number] (Wo rk) Scheduled Procedures Name Priority Associated [...] on filedocumented in this encounter Care Teams Clinical Data Analyst Relationship Specialty Start Date End Date Cara Avelar, PCP - General 09/24/01 12/28/02 documented as of this encounter
--- OUTSIDE RECORDS SUMMARY | 2022-05-02 12:45 | XMS_ITS | Encounter Summary ---
:1950 Author Organization [place] Address [address] [facility] [place] [address] Care Team Providers Name Role Phone Doctor, None MD Primary Care Provider Unavailable Reason for Referral Consultation (Routine) - Closed Specialty Diagnoses / Procedures Referred By Contact Refer red To Contact Diagnoses Pain in joint, shoulder region Roberto Linder MD [address] [place] [id number] Referral ID Status Reason Start Date Expiration Date Visits V isits Requested Authorized [id number] Closed Consult Only 07/27/2002 07/27/2003 6 6 onsultation (Routine) - Closed Specialty Diagnoses / Procedures Referred By Contact Refer red To Contact Diagnoses Pain in joint, shoulder region Roberto Linder MD [address] [place] [address] Referral ID Status Reason Start Date Expiration Date Visits V isits Requested Authorized [id number] Closed Consult Only 07/27/2002 07/27/2003 6 6 onsultation (Routine) - Closed Specialty Diagnoses / Procedures Referred By Contact Refer red To Contact Diagnoses Type II or unspecified type diabetes mellitus without mention of complication, not stated as uncontrolled Roberto Linder MD [address] [place] [address] Referral ID Status Reason Start Date Expiration Date Visits V isits Requested Authorized [id number] Closed Consult Only 07/27/2002 07/27/[address] P[address]ENGER AGENT Reason for Visit Reason Comments RECHECK Pt. here for diabetic check- up. [email or web address] Encounter Details Date Type Department Care Team Description 07/27/2002 Office Visit [facility] Roberto Linder MD DIABETES UNCOMPL ADULT-TYPE II; [facility] [address] JOINT PAIN-SHLDER [address] [place] [address] [phone] Social History Tobacco Use Types Packs/Day Years Used Date Never Assessed Sex Assigned at Date Recorded Male 03/12/2021 12:11 PM CDT documented as of this encounter Last Filed Vital Signs Vital Sign Reading Time Taken Comments Blood Pressure 160/80 07/27/2002 3:30 PM RAILROAD PASSENGER AGENT Pulse 84 07/27/2002 3:30 PM RAILROAD PASSENGER AGENT Temperature - - Respiratory Rate - - Oxygen Saturation - - Inhaled Oxygen Concentration - - Weight 101.6 kg (224 lb) 07/27/2002 3:30 PM RAILROAD PASSENGER AGENT Height - - Body Mass Index - - documented in this encounter Progress Notes 07/27/2002 3:30 PM RAILROAD PASSENGER AGENT Nikita Anderson presents for health counseling with respect to management of Type II Diabetes Mellitus . 25 minutes were spent with the patient today face to face today, over 50% of which was devoted to [facility] counseling and education regarding these issues. We reviewed the patient's unsatisfactory glyc emic control based on recent Hgb A1C of 10.0. He monitors his glucoses infrequently. He is not follow ing any particular dietary intake and no longer exercises regularly. He candidly acknowledges his poo r compliance, not seeming proud of it but noting a very busy lifestyle and reduced motivation. We d iscussed his increase in risk for microvascular and ASCVD complications with poor glycemic control. E ncouraged the patient to retry more aggressive glycemic monitoring, and increased attention tonon-ph armacologic measures. Offered referral to Endocrinology for multidisciplinary education. He has als o had chronic left shoulder pain, with no known injury, pain with internal rotation/abduction such as putting on a jacket. Review of patient's past medical history indicates: NEUROPATHY IN DIABETES Comment: Abstracted 01/20/02 DIAB NEURO MANIF ADULT Comment: Abstracted 01/20/02 BENIGN HYPERTENSION Comment: Abstracted 01/20/02 PURE HYPERCHOLESTEROLEM Comment: Abstracted 01/20/02 Meds as of 07/27/2002: HUMULIN R 100 U/ML IJ SOLN As directed. HUMULIN L 100 U/ML SC SUSP lente 26 u q am & q pm AVANDIA 8 MG OR TABS 1 TABLET DAILY LIPI TOR 10 MG OR TABS 1 tab PO QD (Once per day) AVANDIA 8 MG OR TABS 1 TABLET DAILY INSULIN INJECTION 10 0 U/ML IJ SOLN 22 u q am & q pm SYRINGE B-D MICRO FINE 1/2 CC SYRINGES Ultra fine OBJECTIVE: Well-a ppearing middle-aged male in no distress. BP 160/80 Pulse 84 Wt 224 lbs (101.606 kg) Chest: Nataliya r to auscultation and percussion. Cardiac: Normal to precordial palpation and auscultation. ASSESS/ PLAN Health counseling with respect to management of Type II Diabetes Mellitus and left shoulder pain . 25 minutes were spent with the patient today face to face today, over 50% of which was devoted to h ealt counseling and education regarding these issues. See above. Will offer referrals to Endocrinol ogy, Orthopedic Surgery, and PT. Suggest return appt in 3 months, sooner prn. Flu shot offered at his request. documented in this encounter Plan of Treatment Upcoming Encounters Date Type Specialty Care Team Description 05/15/2022 Hospital Encounter Surgery Singh Torres MD [facility] [address] [place] [id number] (Wo rk) 05/15/2022 Surgery Surgery Neo Torres MD BLEPHAROPLASTY BILATERAL [facility] IDS, INTERNAL & SURGEONS [place] PTOSIS REPAIR BILATERAL [address] [place] [id number] (Wo rk) 06/25/2022 Ancillary Procedure Cardiology Kirk Silver MD [address] [place] [address] (Wo rk) Scheduled Procedures Name Priority Associated [...] mention of complication, not stated as uncontrolled Pain in joint, shoulder region 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
--- OUTSIDE RECORDS SUMMARY | 2022-05-02 12:45 | XMS_ITS | Encounter Summary ---
:1950 Author Organization [place] Address [address] [facility] [place] [address] Care Team Providers Name Role Phone Doctor, None MD Primary Care Provider Unavailable Reason for Visit Reason Comments Refill Request Encounter Details Date Type Department Care Team Description 07/06/2002 Refill [facility] Carmel Linder MD Refill Request [place] [address] [facility] [address] [place] [address] [place] [address] [phone] Social History Tobacco Use Types Packs/Day Years Used Date Never Assessed Sex Assigned at Date Recorded Male 03/12/2021 12:11 PM CDT documented as of this encounter Miscellaneous Notes Telephone Encounter - 07/06/2002 11:59 PM OCEAN FREIGHT MANAGER >> JARROD POLK Wed Jul 06, 2002 3:22 PM appt made 07-27-02 >> JARROD POLK ThuJul 06, 2002 3:19 PM done >> CARMEL LINDER ThuJul 06, 2002 3:15 PM Please call pt--needs appt with me to keep getting Rx's. Okayed each x one. >> MAGGI CASTANEDA ThuJul 06, 2002 10:01 AM >> CALL RECEIVED. Contact: RX originally sent to Dr. Schmidt who sent RX refill back to Dr. Linder. Should it be noted to Pharm for pt to make appt with you for f/u soon? The chart has been requested. documented in this encounter Plan of Treatment Upcoming Encounters Date Type Specialty Care Team Description 05/15/2022 Hospital Encounter Surgery Singh Torres MD [facility] [address] [place] [address] (Wo rk) 05/15/2022 Surgery Surgery Neo Torres MD BLEPHAROPLASTY BILATERAL [facility] IDS, INTERNAL & SURGEONS [place] PTOSIS REPAIR BILATERAL [address] [place] [address] (Wo rk) 06/25/2022 Ancillary Procedure Cardiology Kirk Silver MD [address] [place] [address] (Wo rk) Scheduled Procedures Name Priority Associated [...] on filedocumented in this encounter Care Teams Pole Tester Relationship Specialty Start Date End Date Doctor, Cara, PCP - General 09/24/01 12/28/02 documented as of this encounter
--- OUTSIDE RECORDS SUMMARY | 2022-05-02 12:45 | XMS_ITS | Encounter Summary ---
:1950 Author Organization [place] Address [address] [facility] [place] [address] Care Team Providers Name Role Phone Doctor, None MD Primary Care Provider Unavailable Reason for Visit Reason Comments Refill Request Encounter Details Date Type Department Care Team Description [facility] Refill Request [place] [address] [facility] [address] [place] [address] [place] [address] [phone] Social History Tobacco Use Types Packs/Day Years Used Date Never Assessed Sex Assigned at Date Recorded Male 03/12/2021 12:11 PM CDT documented as of this encounter Miscellaneous Notes Telephone Encounter - 07/13/2002 11:59 PM SPECIAL PROJECTS COORDINATOR >> COCO ALBARRAN Fri Jul 15, 2002 11:23 AM [facility] Patient 07-05-01, Contacted Patient and has appt on 's A1c and glucose for prior to appt. >> CARMEL LINDER Leana Jul 14, 2002 5:28 PM When was he seen last? (never seen since EPIC started) Okayed x 1. >> OSORIO UNDERWOOD Wed Jul 13, 2002 1:51 PM >> CALL RECEIVED. Contact: documented in this encounter Plan of Treatment Upcoming Encounters Date Type Specialty Care Team Description 05/15/2022 Hospital Encounter Surgery Singh Torres MD [facility] [address] [place] [address] (Wo rk) 05/15/2022 Surgery Surgery Neo Torres MD BLEPHAROPLASTY BILATERAL [facility] IDS, INTERNAL & SURGEONS [place] PTOSIS REPAIR BILATERAL [address] [place] [id number] (Wo rk) 06/25/2022 Ancillary Procedure Cardiology Kirk Silver MD [address] [place] [id number] (Wo rk) Scheduled Procedures Name Priority Associated [...] ptosis documented in this encounter Care Teams Sexton Helper Relationship Specialty Start Date End Date Doctor, Cara, PCP - General 09/24/01 12/28/02 documented as of this encounter
--- OUTSIDE RECORDS SUMMARY | 2022-05-02 12:45 | XMS_ITS | Encounter Summary ---
:1950 Author Organization [place] Address [address] [facility] [place] [address] Care Team Providers Name Role Phone Doctor, None MD Primary Care Provider Unavailable Reason for Visit Reason Comments Refill Request Encounter Details Date Type Department Care Team Description 07/28/2002 Refill [facility] Roberto Linder MD Refill Request [place] [address] [facility] [address] [place] [address] [place] [address] [phone] Social History Tobacco Use Types Packs/Day Years Used Date Never Assessed Sex Assigned at Date Recorded Male 03/12/2021 12:11 PM CDT documented as of this encounter Miscellaneous Notes Telephone Encounter - 07/28/2002 11:59 PM MEDICAL LABORATORY ASSISTANT >> YARON Dueñas Jul 28, 2002 5:31 PM >> CALL RECEIVED. Contact: Opened in error documented in this encounter Plan of Treatment Upcoming Encounters Date Type Specialty Care Team Description 05/15/2022 Hospital Encounter Surgery Singh Torres MD [facility] [address] [place] [address] (Wo rk) 05/15/2022 Surgery Surgery Neo Torres MD BLEPHAROPLASTY BILATERAL [facility] [place] IDS, INTERNAL & SURGEONS [place] PTOSIS REPAIR BILATERAL [address] [place] [address] (Wo rk) 06/25/2022 Ancillary Procedure Cardiology Kirk Silver MD [address] [place] [address] (Wo rk) Scheduled Procedures Name Priority Associated [...] on filedocumented in this encounter Care Teams Continuous Dryout Operator Helper Relationship Specialty Start Date End Date Doctor, Cara, PCP - General 09/24/01 12/28/02 documented as of this encounter
--- OUTSIDE RECORDS SUMMARY | 2022-05-02 12:45 | XMS_ITS | Encounter Summary ---
:1950 Author Organization [place] Address [address] [place] 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 Reason for Visit Reason Comments Diabetes Encounter Details Date Type Department Care Team Description 08/15/2003 Office Visit [facility] Roberto Linder MD DIABETES UNCOMPL ADULT-TYPE II; Clinic [place] [address] [place] IMPOTENCE, ORGANIC ORIGN [address] [place] [id number] [phone] Social History Tobacco Use Types Packs/Day Years Used Date Never Smoker Alcohol Use Standard Drinks/Week Comments No 0 (1 standard drink = 0.6 oz pure alcoho l) Sex Assigned at Date Recorded Male 03/12/2021 12:11 PM CDT documented as of this encounter Last Filed Vital Signs Vital Sign Reading Time Taken Comments Blood Pressure 132/80 08/15/2003 3:30 PM CONCRETE BUCKET UNLOADER Pulse 70 08/15/2003 3:30 PM CONCRETE BUCKET UNLOADER Temperature - - Respiratory Rate - - Oxygen Saturation - - Inhaled Oxygen Concentration - - Weight 103 kg (227 lb) 08/15/2003 3:30 PM CONCRETE BUCKET UNLOADER Height - - Body Mass Index - - documented in this encounter Progress Notes 08/15/2003 3:30 PM 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 Thirty minutes were spent with the patient face to face today, over 50% ofwh ich was devoted to health counseling and education regarding these issues. Diabetic ROS - Medication compliance: compliant most of the time, Diabetic diet compliance: noncompliant much of the time, H ome accucheks: are performed sporadically. Admits low motivation to manage diabetes and check glucos es, although expresses an interest in an endocrinology consultation. Denies h ypoglycemic reactions. Diabetic ROS: no polyuria or polydipsia, no chest pain, dyspnea or TIA's. No pain in extremities, but does have a vaguely characterized burning or little pins discomfort in the tops of the toes interm ittently. No unusual visual symptoms. No medication side effects noted, weight has increased sevenpo unds since November 2002. Last eye exam not recalled by pt. New concerns: mentions difficulty achievin g erections. Diabetic exam: fundi normal, heart sounds are normal, chest clear, no hepatosplenomeg rishabh and feet: normal pulses, color, temperature, sensation. Lab review: labs reviewed, I note that gl ycosylated hemoglobin abnormal A1C at 10.3 on 08/08/2003, lipids LDL result does not yet meet goal, liver functions are normal. Assessment: Health counseling with respect to poorly controlled diabete s mellitus, and erectile dysfunction. Thirty minutes were spent with the patient face to face today, over 50% of which was devoted to health counseling and education regarding these issues. Diabetes Me llitus: poorly controlled, patient poorly compliant. Plan: see orders in EpicCare. Diabetic issues r eviewed with him: referral to endocrinology, diabetic diet discussed in detail, weight control and da geoffrey exercise discussed, importance of resuming homeglucose monitoring emphasized, glycohemoglobin mo nitoring discussed and chcf diabetic complications discussed. Discussed possible switch from cu rrent regimen to combination Lantus and Humalog. Pt considered theswitch now but elects to defer to endocrinology. 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 Patient given samples, instructions for use, some potential adverse effects and prescription for VIAGRA 50 MG OR TABS, 1 TABLET DAILY NEEDED, D: 6, R: 0, and LEVITRA 10MG, As directed (one tablet first time, may increase to 2 tablets subsequently i f needed), D: 3, R: 0 Follow-up with me in about three months, call or schedule a follow-up appointm ent sooner prn if anyproblems. documented in this encounter Plan of Treatment Upcoming Encounters Date Type Specialty Care Team Description 05/15/2022 Hospital Encounter Surgery Singh Torres MD [facility] [address] [place] [address] (Wo rk) 05/15/2022 Surgery Surgery Neo Torres MD BLEPHAROPLASTY BILATERAL [facility] IDS, INTERNAL & SURGEONS [place] PTOSIS REPAIR BILATERAL [address] [place] [address] (Wo rk) 06/25/2022 Ancillary Procedure Cardiology Kirk Silver MD [address] [place] [id number] (Wo rk) Scheduled Procedures Name Priority Associated [...] mention of complication, not stated as uncontrolled 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 [address] [place] [address] documented as of this encounter
--- OUTSIDE RECORDS SUMMARY | 2022-05-02 12:45 | XMS_ITS | Encounter Summary ---
:1950 Author Organization [place] Address [address] [facility] [place] [address] Care Team Providers Name Role Phone Carmel Linder MD Primary Care Provider Reason for Visit Reason Comments Refill Request Encounter Details Date Type Department Care Team Description 06/27/2003 Refill [facility] Carmel Linder MD Refill Request [place] [address] [facility] [address] [place] [address] [place] [address] [phone] Social History Tobacco Use Types Packs/Day Years Used Date Never Smoker Alcohol Use Standard Drinks/Week Comments No 0 (1 standard drink = 0.6 oz pure alcoho l) Sex Assigned at Date Recorded Male 03/12/2021 12:11 PM CDT documented as of this encounter Miscellaneous Notes Telephone Encounter - 06/27/2003 11:59 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 for further refills. >> CRISTOPHER SONI ThuJun 30, 2003 11:14 AM Left msg at work to call back. >> CRISTOPHER SONI ThuJun 28, 2003 2:13 PM Left message on answering machine for patient to call back. >> CARMEL LINDER ThuJun 28, 2003 8:21 AM Pt needs appt--please call him. >> COCO La Jun 27, 2003 4:57 PM >> CALL RECEIVED. Contact: documented in this encounter Plan of Treatment Upcoming Encounters Date Type Specialty Care Team Description 05/15/2022 Hospital Encounter Surgery Singh Torres MD [facility] [address] [place] [address] (Wo rk) 05/15/2022 Surgery Surgery Neo Torres MD BLEPHAROPLASTY BILATERAL [facility] IDS, INTERNAL & SURGEONS [place] PTOSIS REPAIR BILATERAL [address] [place] [address] (Wo rk) 06/25/2022 Ancillary Procedure Cardiology Kirk Silver MD [address] [place] [address] (Wo rk) Scheduled Procedures Name Priority Associated [...] on filedocumented in this encounter Care Teams Upkeep Worker Relationship Specialty Start Date End Date Carmel Linder MD PCP - General 12/29/02 08/20/11 [address] [place] [address] documented as of this encounter
--- OUTSIDE RECORDS SUMMARY | 2022-05-02 12:45 | XMS_ITS | Encounter Summary ---
:1950 Author Organization [place] Address [address] [facility] [place] [address] Care Team Providers Name Role Phone Doctor, None MD Primary Care Provider Unavailable Reason for Visit Reason Comments Refill Request Encounter Details Date Type Department Care Team Description 11/04/2002 Refill [facility] Carmel Linder MD Refill Request [place] [address] [facility] [address] [place] [address] [place] [address] [phone] Social History Tobacco Use Types Packs/Day Years Used Date Never Assessed Sex Assigned at Date Recorded Male 03/12/2021 12:11 PM CDT documented as of this encounter Miscellaneous Notes Telephone Encounter - 11/04/2002 11:59 PM 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 Needs lipid panel recheck and clinic f/u appt. >> ALEJANDRO RAMESH ThuNov 04, 2002 9:17 AM >> CALL RECEIVED. Contact: last fill 10/01/02 documented in this encounter Plan of Treatment Upcoming Encounters Date Type Specialty Care Team Description 05/15/2022 Hospital Encounter Surgery Singh Torres MD [facility] [address] [place] [address] (Wo rk) 05/15/2022 Surgery Surgery Neo Torres MD BLEPHAROPLASTY BILATERAL [facility] IDS, INTERNAL & SURGEONS [place] PTOSIS REPAIR BILATERAL [address] [place] [address] (Wo rk) 06/25/2022 Ancillary Procedure Cardiology Kirk Silver MD [address] [place] [address] (Wo rk) Scheduled Procedures Name Priority Associated [...] on filedocumented in this encounter Care Teams Studio Owner Relationship Specialty Start Date End Date Doctor, Cara, PCP - General 09/24/01 12/28/02 documented as of this encounter
--- OUTSIDE RECORDS SUMMARY | 2022-05-02 12:45 | XMS_ITS | Encounter Summary ---
:1950 Author Organization [place] Address [address] [facility] [place] [address] Care Team Providers Name Role Phone Doctor, None MD Primary Care Provider Unavailable Reason for Referral - Closed Specialty Diagnoses / Procedures Referred By Contact Refer red To Contact Diagnoses Type II or unspecified type diabetes mellitus without mention of complication, not stated as uncontrolled Roberto Linder MD [address] [address] Referral ID Status Reason Start Date Expiration Date Visits Requ ested Visits Authorized [id number] Closed 11/16/2002 08/09/2011 1 1 Reason for Visit Reason Comments RECHECK Encounter Details Date Type Department Care Team Description 11/16/2002 Office Visit [facility] Roberto Linder DIABET ES UNCOMPL ADULT-TYPE II (Primary Dx); Clinic Natividad MAHER HYPERLIPIDEMIA NEC/NOS [address] [facility] [address] [place] [id number] [phone] Social History Tobacco Use Types Packs/Day Years Used Date Never Smoker Alcohol Use Standard Drinks/Week Comments No 0 (1 standard drink = 0.6 oz pure alcoho l) Sex Assigned at Date Recorded Male 03/12/2021 12:11 PM CDT documented as of this encounter Last Filed Vital Signs Vital Sign Reading Time Taken Comments Blood Pressure 150/78 11/16/2002 3:45 PM CDT Pulse 60 11/16/2002 3:45 PM CDT Temperature - - Respiratory Rate - - Oxygen Saturation - - Inhaled Oxygen Concentration - - Weight 99.8 kg (220 lb) 11/16/2002 3:45 PM CDT Height - - Body Mass Index - - documented in this encounter Progress Notes 11/16/2002 3:45 PM CDT Nikita Anderson presents for f/u of DIABETES UNCOMPL ADULT-TYPE II [250.00] and HYPERLIPIDEMIA NEC/NOS [272.4]. He is still not regularly monitoring glucoses. He continues to lack strong motivation to wo rk at improved diabetes control. We discussed today, as at last appointment, the importance of improv ing control of diabetes to reduce residential risks of eye, kidney and vascular complications. We revi ewed his most recent Hemoglobin A1C (%): Date Value Low High Status 2002 10.0* 4.3 6.0 Final He is convinced that Avandia is contributing little to his glycemic control, but that it is likely contributing to some chronic nasal congestion a nd post nasal drainage. We discussed that it would be difficult to assess its benefits without proper glycemic monitoring before and after discontinuation. He also wonders to what extent Lipitor is re ducing his LDL, which measured 128 on 11/09/02. I suggested that he is not yet at goal of below 100, an d suggested that we actually increase its dose to 20 mg daily. We discussed in some detail some poss ible adjustments in insulin management, particularly the pharmacokinetics of both Lantus and Humalog. He expresses interest in consulting with endocrinology beforepursuing these possible changes. Meds as of 11/16/2002: AVANDIA 8 MG OR TABS 1 TABLET DAILY LIPITOR 10 MG OR TABS 1 tab PO QD (Once per day) HUMULIN R 100 U/ML IJ SOLN As directed. HUMULIN L 100 U/ML SC SUSP lente 26 u q am & q pm SYRINGE B- D MICRO FINE 1/2 CC SYRINGES Ultra fine OBJECTIVE: Well-appearing middle-aged male in no distress. B P 150/78 Pulse 60 Wt 220 lbs (99.791 kg) ASSESSMENT/PLAN: DIABETES UNCOMPL ADULT-TYPE II [250.00 ], see above. Will continue same regimen. Offered discontinuation of Avandia as an option but he will likely defer this until endocrinology consult is obtained. HYPERLIPIDEMIA NEC/NOS [272.4], will inc rease to LIPITOR 20 MG OR TABS, 1 tab PO QD (Once per day),D: 28, R: 0. Follow-up with me in 2-3 [facility], call or schedule a follow-up appointment sooner prn if any problems. documented in this encounter Nursing Notes 11/16/2002 3:45 PM CDT >> GINNY ALBARRAN 11/16/2002 3:58 pm 1: lab Follow Up 2: Med renew and review 3: Diabetes check Ginny ClarkNRama. documented in this encounter Plan of Treatment Upcoming Encounters Date Type Specialty Care Team Description 05/15/2022 Hospital Encounter Surgery Singh Torres MD [facility] [address] [place] [address] (Wo rk) 05/15/2022 Surgery Surgery Neo Torres MD BLEPHAROPLASTY BILATERAL [facility] PTOSIS REPAIR BILATERAL [address] [place] [address] (Wo rk) 06/25/2022 Ancillary Procedure Cardiology Kirk Silver MD [address] [place] [address] (Wo rk) Scheduled Procedures Name Priority Associated [...] uncontrolled - Primary Other and unspecified hyperlipidemia 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
--- OUTSIDE RECORDS SUMMARY | 2022-05-02 12:45 | XMS_ITS | Encounter Summary ---
:1950 Author Organization [place] Address [address] [facility] [place] [address] Care Team Providers Name Role Phone Doctor, None MD Primary Care Provider Unavailable Encounter Details Date Type Department Care Team Description 01/20/2002 Abstract [facility] Rabia Clark [address] [place] [phone] Social History Tobacco Use Types Packs/Day Years Used Date Never Assessed Sex Assigned at Date Recorded Male 03/12/2021 12:11 PM CDT documented as of this encounter Plan of Treatment Upcoming Encounters Date Type Specialty Care Team Description 05/15/2022 Hospital Encounter Surgery Singh Torres MD [facility] [address] [place] [id number] (Wo rk) 05/15/2022 Surgery Surgery Neo Torres MD BLEPHAROPLASTY BILATERAL [facility] PTOSIS REPAIR BILATERAL [address] [place] [address] (Wo rk) 06/25/2022 Ancillary Procedure Cardiology Kirk Silver MD [address] [place] [id number] (Wo rk) Scheduled Procedures Name Priority Associated [...] Name Priority Date/Time Associated Diagnosis Comme nts ABSTRACT [facility] REPORT Routine 01/20/2002 documented in this encounter Results ABSTRACT [facility] REPORT (01/20/2002) Narrative This result has an attachment that is no t available. Rabia Clark [facility] documented in this encounter Visit Diagnoses Not on filedocumented in this encounter Care Teams Vp Sales Relationship Specialty Start Date End Date Doctor, Cara, PCP - General 09/24/01 12/28/02 documented as of this encounter
--- OUTSIDE RECORDS SUMMARY | 2022-05-02 12:46 | XMS_ITS ---
:1950 Author Care Team Providers Name Role Phone ELIZA PATTEN MD Primary Care Provider [phone] Allergies Code Code System Name Reaction Severity Status Onset 3992 RxNorm Epinephrine Other ? Active ? 814811 RxNorm Lipitor Other ? Active ? Medications Name Status Start Date Stop Date ? ? Accu-Chek Sheri Plus test strips Active ? Not available USE TO TEST FOUR TIMES DAILY Accu-Chek Softclix Lancets Active ? Not a vailable USE TO TEST FOUR TIMES DAILY Adult Aspirin Regimen 81 mg tablet,delayed release Active ? Not available Take 1 tablet every day by oral route. amlodipine 10 mg tablet Active ? Not avai lable amlodipine 2.5 mg tablet Active ? Not robert ilable amlodipine 5 mg tablet Active ? Not avail able aspirin 325 mg tablet Active ? Not availa ble 325mg 1/day carvedilol 12.5 mg tablet Active ? Not av ailable carvedilol 6.25 mg tablet Active ? Not av ailable 6.25mg 2/day cephalexin 500 mg capsule Active ? Not av ailable chlorthalidone 25 mg tablet Active ? Not available ciclopirox 8 % topical solution Completed ? 02/16/2020 clonidine 0.1 mg/24 hr weekly transdermal patch Active ? Not available 0.1mg per day 2/day clonidine HCl 0.1 mg tablet Active ? Not available clonidine HCl 0.2 mg tablet Active ? Not available clotrimazole 1 % topical solution Active ? Not available PUT 5 DROPS INTO LEFT EAR TWICE DAILY. LAY WITH EAR UP FOR AT LEAST 10 MINS AFTER. USE COTTON BALL WITH VASELINE WHEN SHOWERING TO KEEP DRY. copper Active ? Not available 2mg 1/day cyanocobalamin (B12)-cobamamide 5,000 mcg-100 mcg sublingual blessing enge Active ? Not available 1ml of 1000mcg/ml 1/day cyanocobalamin (vit B-12) 1,000 mcg sublingual lozenge Active ? Not available PLACE 1 TABLET UNDER THE TONGUE ONCE DAILY Dexcom G6 Corporate Lawyer misc Completed ? 08/22/19 21 U UTD FOR CONTINUOUS GLUCOSE MONITORING. Dexcom G6 Sensor device Active ? Not avai lable USE DIRECTED FOR CONTINUOUS GLUCOSE MONITORING. CHANGE EVERY 10 DAYS. Dexcom G6 Transmitter device Active ? Not available USE DIRECTED FOR CONTINUOUS GLUCOSE MONITORING. CHANGE EVERY 90 DAYS doxycycline hyclate 100 mg capsule Active ? Not available TAKE 1 CAPSULE BY MOUTH TWICE DAILY FOR 10 DAYS Fluad Quad 2833-4938(65yr up)(PF) 60 mcg (15 mcg x 4)/0.5mL IM s yringe Active ? Not available ADM 0.5ML IM UTD furosemide 20 mg tablet Active ? Not avai lable gabapentin Active ? Not available 300mg 2/day gabapentin 100 mg capsule Active ? Not av ailable gabapentin 300 mg capsule Active ? Not av ailable Glucagon (HCl) Emergency Kit 1 mg solution for injection Active ? Not available glucosamine 500 mg-chondroit 400 mg-vit C 2 mg-cintia 0.33 mg ca psule Active ? Not available Take by oral route. Humalog U-100 Insulin 100 unit/mL subcutaneous solution Active ? Not available USING UP TO 135UNITS EVERY DAY VIA INSULIN PUMP. hydralazine 25 mg tablet Active ? Not robert ilable TAKE ONE TABLET BY MOUTH THREE TIMES DA DIANE IN ADDITION TO 50MG THREE TIMES DAILY FOR TOTAL OF 75MG THREE TIMES DAILY hydralazine 50 mg tablet Active ? Not robert ilable insulin admin supplies Active ? Not avail able as needed by pump as needed/day insulin syringe U-100 with needle 0.5 mL 31 gauge x 5/16 Active ? Not available USE TO INJECT INSULIN FOUR TIMES DAILY iron Active ? Not available 35mg 1/day isosorbide mononitrate ER 30 mg tablet,extended release 24 hr Ac tive ? Not available 30mg 1/day isosorbide mononitrate ER 60 mg tablet,extended release 24 hr Ac tive ? Not available TAKE 1 TABLET BY MOUTH DAILY. Ketostix strips Active ? Not available USE DIRECTED. Lantus U-100 Insulin 100 unit/mL subcutaneous solution Active ? Not available INJECT UP TO 80 UNITS AT BEDTIME. lisinopril 10 mg tablet Active ? Not avai lable lisinopril 20 mg tablet Active ? Not avai lable lisinopril 20 mg-hydrochlorothiazide 12.5 mg tablet Active ? Not available TAKE 1 TABLET BY MOUTH DAILY melatonin Active ? Not available 10mg 1/day nitroglycerin 0.4 mg sublingual tablet Active ? Not available PLACE 1 TABLET UNDER THE TONGUE EVERY 5 MINUTES NEEDED FOR CHEST PAIN. MAY TAKE 1 EXTRA TABLET 5 MINUTES AFTER 1ST DOSE IF PAIN NOT RELIE PreviDent 5000 Booster Plus 1.1 % dental paste Active ? Not available USE TO BRUSH TEETH TWICE DAILY rosuvastatin 40 mg tablet Active ? Not av ailable sertraline 50 mg tablet Active ? Not avai lable terbinafine HCl 250 mg tablet Active ? No t available TAKE 1 TABLET BY MOUTH DAILY tramadol 50 mg tablet Completed ? 08/22/2020 trazodone 50 mg tablet Active ? Not avail able TAKE 1 TO 2 TABLETS BY MOUTH EVERY NIGHT AT BEDTIME NEEDED F OR INSOMNIA triamcinolone acetonide 0.025 % topical cream Active ? Not available APPLY TOPICALLY TO THE AFFECTED AREA TWICE DAILY FOR 7 DAYS turmeric Active ? Not available don't know 1/day Problems Name Status Onset Date Source ? 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 Benign Prostatic Hyperplasia with Outflow Obstruction Active 08/22/2020 ? Nocturia Active 08/22/2020 ? Procedures Date Name Performed by ? 01/12/2021 Occult Blood Feces Information not avai lable Notes: Stool blood test (FOBT) 07/29/2019 Us Urine Capacity Measure Information no t available Notes: 07/29/2019 - US URINE CAPACITY MEASURE 07/14/2018 Us Urine Capacity Measure Information no t available Notes: 07/14/2018 - US URINE CAPACITY MEASURE 07/24/2016 Cystoscopy Information not avai lable Notes: 07/24/2016 - CYSTOSCOPY 04/23/2016 Genital Surgery Procedure Information no t available Notes: 04/23/2016 - GENITAL SURGERY MO OCEDURE 01/02/2016 Us Urine Capacity Measure Information no t available Notes: 01/02/2016 - US URINE CAPACITY MEASURE 11/29/2015 Us Urine Capacity Measure Information no t available Notes: 11/29/2015 - US URINE CAPACITY MEASURE 11/23/2015 Us Urine Capacity Measure Information no t available Notes: 11/23/2015 - US URINE CAPACITY MEASURE 10/29/2015 Biopsy of Prostate Information not avai lable Notes: 10/29/2015 - BIOPSY OF PROSTATE 10/29/2015 N Block Other Peripheral Information not available Notes: 10/29/2015 - N BLOCK OTHER BEBO PHERAL 10/05/2015 Us Urine Capacity Measure Information no t available Notes: 10/05/2015 - US URINE CAPACITY MEASURE 04/09/2015 Repair Arterial Blockage Information not available Notes: 04/09/2015 - REPAIR ARTERIAL BL OCKAGE 02/15/2014 Us Urine Capacity Measure Information no t available Notes: 02/15/2014 - US URINE CAPACITY MEASURE 08/16/2013 Cystoscopy Information not avai lable Notes: 08/16/2013 - CYSTOSCOPY 07/04/2013 Us Urine Capacity Measure Information no t available Notes: 07/04/2013 - US URINE CAPACITY MEASURE 03/21/2013 Us Urine Capacity Measure Information no t available Notes: 03/21/2013 - US URINE CAPACITY MEASURE 08/10/2012 Colonoscopy Thru Stoma Spx Information n ot available Notes: 08/10/2012 - COLONOSCOPY THRU S AARON SPX 06/15/2012 Us Urine Capacity Measure Information no t available Notes: 06/15/2012 - US URINE CAPACITY MEASURE 04/30/2012 Us Urine Capacity Measure Information no t available Notes: 04/30/2012 - US URINE CAPACITY MEASURE 04/02/2010 Routine Venipuncture Information not robert ilable Notes: 04/02/2010 - ROUTINE VENIPUNCTU RE ? Insert Epicard Eltrd Open Information no t available Notes: Heart Surgery ? Prostatectomy (Turp) Information not robert ilable Notes: Prostate Surgery ? Removal of Sperm Duct(s) Information not available Notes: Vasectomy ? Removal of Tonsils Information not avai lable Notes: REMOVAL OF TONSILS 08/22/2020 MRI, Prostate, W/wo Contrast Spr [address] [place] [address] (Work Place) Notes: Other surgeries: Us urine capac ity measure, Us urine capacity measure, Genital surgery procedure, Us urine capa city measure, Us urine capacity measure, Us urine capacity measure, Biopsy of prosta te, N block other peripheral, Us urine capacity measure, Repair arterial blocka ge, Us urine capacity measure, Us urine capacity measure, Us urine capacity miguelito ure, Colonoscopy thru stoma spx, Us urine capacity measure, Us urine capacity miguelito ure, Routine venipuncture and Removal of tonsils Results Lab Results Date Name Specimen Result Interpretation Description Value Range Status Address ? 01/17/2022 PSA, ? Psa 0.08 ? ? [facility], [facility] [address] [facility] [address] [place] 09/12/2021 Urinalysis UR ? Color-status yellow yellow Fi nal [place] , Dipstick [facility] [place]: [address] [facility] [address], [place] ? ? UR ? Clarity-stat clear clear Final [place] [facility] [place]: [address] [facility] [address], [place] ? ? UR ? Glucose-stat negative negative Final [place] mg/dL mg/dL [facility] [place]: [address] [facility] [address], [place] ? ? UR ? Bilirubin-ur negative negative Final [facility] [place]: [address] [facility] [address], [place] ? ? UR ? Ketones-stat negative negative Final [place] mg/dL mg/dL [facility] [place]: [address] [facility] [address], [place] ? ? UR ? SG-status 1.015 1.00-1.[address] [facility] [place]: [address] [facility] [address], [place] ? ? UR ? pH-status 5.0 5.00-8.00 Final [place] [facility] [place]: [address] [facility] [address], [place] ? ? UR ABNORMAL Protein-stat trace negative Final [place] mg/dL mg/dL [facility] [place]: [address] [facility] [address], [place] ? ? UR ? Urobilinogen 0.2 0.2 Final [place] -status E.U./dL E.U./dL Urology - E.U./dL E.U./dL [place] [facility]: [address] [facility] [address], [place] ? ? UR ? Nitrites-sta negative negative Final [facility] [place]: [address] [facility] [address], [place] ? ? UR ? Blood-urine negative negative Final [place] [facility] [place]: [address] [facility] [address], [place] ? ? UR ? Leuko-status negative negative Final [place] [facility] [place]: [address] [facility] [address], [place] ? ? UR ? Performed by mitch Pryor ? [facility] [place] [address] [facility] [address], [place] ? ? UR ? Total Urine 80 /mL ? Final [place] Volume (mL) [facility] [place]: [address] [facility] [address], [place] 08/23/2021 PSA, ? Psa 0.09 ? ? Total, Serum or Plasma 08/22/2020 Urinalysis UR ? Color yellow yellow Final [place] , Dipstick -[facility] [place]: [address] [facility] [address], [place] ? ? UR ? Appearance clear clear Final [place] [facility] [place]: [address] [facility] [address], [place] ? ? UR ? Glucose negative negative Final [place] [facility] mg/dL mg/dL [facility] [place]: [address] [address], [place] ? ? UR ? Bilirubin negative negative Final [place] [facility] [place]: [address] [facility] [address], [place] ? ? UR ? Ketones negative negative Final [place] [facility] mg/dL mg/dL [facility] [place]: [address] [address], [place] ? ? UR ? Sp. [place] 1.025 1.010-1.0 Final [place] [facility] - [place]: [address] [address], [place] ? ? UR ? pH -[facility] 5.0 5.0-8.0 Final [place] [facility] [place]: [address] [facility] [address], [place] ? ? UR ? Protein negative negative Final [place] [facility] mg/dL mg/dL [facility] [place]: [address] [facility] [address], [place] ? ? UR ? Urobilinogen 0.2 normal Final [place] [facility] [place]: [address] [facility] [address], [place] ? ? UR ? Nitrites negative negative Final [place] [facility] [place]: [address], [place] ? ? UR ? 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 ? UR ? Leukocytes negative negative Final [place] [facility] [place]: [address] [facility] [address], [place] ? ? UR ? Performed by andres Beyer ? Final [place] [facility] [place]: [address], [place] ? ? UR ? Total Urine 50 /mL ? Final [place] Volume (mL) [facility]rol[facility] [place]: [address] [facility] [address], [place] Past Encounters 09/12/2021 Benign Prostatic Hyperplasia with Outflo w Obstruction; Malignant Tumor of Prostate Peter Gipson MD: [address] [facility], [address], [place] [address], Ph. Social History Tobacco Smoking Status Never Smoker Vaccine List Vaccine Type COVID-19 (SARS-COV-2) vaccine, unspecifi ed 06/12/2021 influenza, unspecified formulation 06/12/2021 pneumococcal conjugate PCV 13 12/29/2014 pneumococcal, unspecified formulation Plan of Care Reminders Provider Appointments None recorded. ? ? Lab None recorded. ? ? Referral None recorded. ? ? Procedures None recorded. ? ? Surgeries None recorded. ? ? Imaging None recorded. ? ? Vitals 09/12/2021 02:05PM ESTABLISHED 15 Height Weight BMI 5 ft 11 in 210 lbs 29.3 kg/m2 08/22/2020 11:15AM ESTABLISHED 15 Height Weight BMI 5 ft 11 in 225 lbs 31.4 kg/m2
[2022-05-02 15:47] LABS: SARS PCR* Negative SARS-CoV-2 (Negative)
== END 2022-05-02 12:11 | disposition home or self-care (01) ==
LOC: KYNREF 12:11
PROVIDERS: PCP Family Medicine; Visit Provider Nurse Practitioner Family
DX: Z11.52 Encounter for screening for COVID-19 (principal)
CPT/HCPCS: 87635

== ENCOUNTER 2022-05-05 11:00 | Day surgery (SDC) | payer MEDICARE, BC, SELFPAY ==
[2022-05-05 11:27] VITALS: BMI 29.9
[2022-05-05 11:35] VITALS: BP 123/68; PULSE 60; RESP 16; TEMP 36.7; O2SAT 98
--- NOTE | 2022-05-05 11:36 | PC.NURSE ---
Pt checked blood glucose with own machine connected to pump.
[2022-05-05] MEDS: ETHYL CHLORIDE 1 APPLICATION 1 APPLIC TOPICAL (11:45)
[2022-05-05] MEDS: LACTATED RINGERS 1000 ML 1,000 ML 100 ML IV (11:46)
[2022-05-05] MEDS: SODIUM CHLORIDE 0.9 % (FLUSH) 10 ML SYRINGE IVF (11:46)
[2022-05-05 12:03] VITALS: BP 131/59; PULSE 60; RESP 14; O2SAT 93
[2022-05-05] MEDS: MIDAZOLAM HCL 1 MG/ML inj IVP (12:03)
[2022-05-05] MEDS: fentaNYL 100 MCG/2 ML inj IVP (12:03)
--- NOTE | 2022-05-05 12:04 | SUR.PREOP ---
TIME?OUT:?1202 PT/RN/MDA?VERIFICATION?OF?SURGICAL?SITE,?PROCEDURE,?AND?CONSENT OBTAINED?PRIOR?TO?INVASIVE?PROCEDURE. all in agreement.
[2022-05-05 12:09] VITALS: BP 111/54; PULSE 61; RESP 14; O2SAT 96
[2022-05-05] MEDS: CEFAZOLIN 2 GM in 0.9 % SODIUM CHLORIDE Mini-bag 100 ML IVPB (12:25)
--- NOTE | 2022-05-05 13:10 | W.PM.NB ---
Nerve Block Nerve Block Time Seen by Provider: 12:00 Date Seen: 05/05/22 Type of block requested by surgeon for post-operative analgesia: axillary Side: left Time out performed: Yes Verification of patient name: Yes Verification of date of : Yes Site marking: site marked Name of person performing procedure: Murphy Continuous monitoring Was continuous monitoring of O2 sat, B/P, court recording monitor, recorded every 15 minutes?: Yes Procedure Checklist: sterile prep, needles and gloves Ultrasound guided. Images saved: Yes Medications given in 5ml increments after negative aspiration: Ropivicaine %: 0.5 mL: 30 Needle gauge: 22 Patient tolerated procedure well: Yes Additional comments: Needle noted adjacent to nerve Block Charges Block Charge (with Pro Fee): Brachial Plexus Use of Ultrasound Machine for Block: Yes- US Guidance/pain block
--- NOTE | 2022-05-05 13:25 | P.ORPRC_ITS ---
Procedure Note Date of procedure: 05/05/22 Procedure: PREOPERATIVE DIAGNOSIS: 1. Left index finger extensor tendon laceration with inability to extend finger (zone 6-involved both the EIP and EDC to the index finger) POSTOPERATIVE DIAGNOSIS: 1. Left index finger extensor tendon laceration with inability to extend finger (zone 6-involved both the EIP and EDC to the index finger) PROCEDURE: 1. Left index finger extensor tendon open repair zone 6-repair of both the EIP and EDC extensor tendons (2 separate tendon repairs). SURGEON: Archie Copeland MD. ASSOCIATE PROFESSOR OF MEDIA ARTS: Arin Crespo PA-C - Of note, an library media assistant was critical for this case to aid in patient positioning, tissue retraction, limb m anipulation/positioning, and closure. ANESTHESIA: Supraclavicular block + MAC EBL: Less than 10 mL IMPLANTS: None TOURNIQUET: 30 min at 225 torr COMPLICATIONS: None evident INDICATIONS: The patient is a pleasant 71-year-old male who was sharpening a knife in his kitchen table well also simultaneously eating lunch. Unfortunately, the nail slipped coming pass the ceramic sharp manner and lacerated the dorsal aspect of his left hand. This was a curvilinear incision overlying the dorsal portion of his hand. He noted inability to fully extend his index finger. He presented [place] [facility]. there, the wound was explored and indeed confirmed to have a complete laceration of both tendons to the index finger for extension. Thorough irrigation normal saline was performed and the wounds to fully close. I saw the patient in clinic. Indeed he had inability to extend his finger. As such, surgery is indicated to repair these tendons. DESCRIPTION OF PROCEDURE: Following a thorough discussion of risks, benefits, and alternatives consent was obtained and the operative extremity was marked. The patient was brought to the operating room and placed supine on the operating table after a block was administered in preop holding. Appropriate time-out was performed identifying proper patient, site, procedure. The left upper extremity was prepped and draped in appropriate sterile fashion knee using ChloraPrep. The limb was exsanguinated and the tourniquet inflated. The previous laceration was opened after the non sutures were removed. The wound was cleared of hematoma and thorough irrigation normal saline was performed. Debridement of the subcutaneous tissue was also performed with a Ray-Kun to clear all the clot. The distal stumps of both the EIP and EDC to the index were readily identified. The proximal stumps had retracted mildly. The EDC tendon stump had less retraction then the IP tendon stump. These were both found, however. The ends of the tendon were debrided with a Ray-Kun, and once the ends were freshened, 4-0 FiberWire was utilized and modified Clark technique. 4 strand repair for each tendon was performed (2 sutures for each tendon). We then performed an epitendinous suturing using 6-0 Prolene. Both the EIP and EDC to the index finger tendons were repaired. 2 separate/distinct tendons. The process was repeated for each tendon. The wound was thoroughly irrigated normal saline. Closure of skin was performed with 4-0 nylon. Tourniquet was deflated, hemostasis confirmed to be achieved. The patient had dressings applied and a splint applied and they were woken / transferred to the PACU in stable condition. PLAN: 1. Encourage elevation of the operative extremity. 2. Maintain the dressing/splint until follow-up. Follow up in 10-12 days. 3. Ibuprofen/acetaminophen and/or Percocet as needed for pain control. 4. Ice as needed. 5. Follow up PA visint in 10-12 days for wound check and OT referral for orthoplast splint fabrication and therapy.
[2022-05-05] MEDS: NEOMYCIN/BACITRACIN/POLYMYXIN B 1 APPLIC TOPICAL (13:30)
[2022-05-05 13:45] VITALS: BP 119/64; PULSE 68; RESP 16; TEMP 37.1; O2SAT 97
--- NOTE | 2022-05-05 13:53 | W.ANESCHARGE ---
Anesthesia Charges Start Date/Time Anesthesia Start Date: 05/05/22 Anesthesia Start Time: 12:21 Stop Date/Time Anesthesia Stop Date: 05/05/22 Anesthesia Stop Time: 13:48 Summary Emergency: No Extremes of Age: Over 69-CPT 59741
[2022-05-05 14:00] VITALS: BP 132/69; PULSE 60; RESP 16; O2SAT 96
--- NOTE | 2022-05-05 14:11 | W.ANESCHARGE ---
Anesthesia Charges Start Date/Time Anesthesia Start Date: 05/05/22 Anesthesia Start Time: 12:21 Stop Date/Time Anesthesia Stop Date: 05/05/22 Anesthesia Stop Time: 13:48 Summary Emergency: No Extremes of Age: Over 69-CPT 52873
[2022-05-05 14:15] VITALS: BP 142/74; PULSE 60; RESP 16; O2SAT 94
== END 2022-05-05 14:35 | disposition home or self-care (01) ==
LOC: OR 11:02
PROVIDERS: PCP Family Medicine; Visit Provider Orthopaedic Surgery Sports Medicine
PROC: (CPT 26418; principal; 2022-05-05 12:45)
DX: S66.321A Laceration of extensor muscle, fascia and tendon of left index finger at wrist and hand level, initial encounter (principal)
CPT/HCPCS: 26418 ×2; 01810; 64415; 76942; 99100; A4580; J0690; J2250; J2405; J2704; J2795; J3010; J7120

== ENCOUNTER 2022-06-26 11:00 | Outpatient (RCR) | payer MEDICARE, BC, SELFPAY ==
--- NOTE | 2022-05-14 18:39 | OT.OPOE ---
OT Outpatient Ortho Eval OT Outpatient Ortho Eval Start: 05/13/22 18:34 Freq: Status: Active Protocol: Document 05/14/22 12:40 AMB (Rec: 05/14/22 18:34 AMB [id number]) E-signed By Shadia Ballesteros, OTR/L, CLT, ITINERANT TEACHER ASSISTANT OT OP Ortho Eval Details Type Type Eval Complexity Low Insurance Information Insurance Information Medicare B Outpatient History/Precautions Current Condition/Medical Diagnosis Referring Provider Dr Copeland Treatment Diagnosis laceration/repair of EIP and EDC tendons of the LUE Date of Onset DOI: 05/01/22 DOS Precautions Lifting Restrictions,Range of Motion Other Precautions Splint on at all times. Other Conditions PMH: includes Anemia, CAD, CHF , CKD, depression, DM, Hx of Melanoma, PVD, Hx of prostate cancer, hyperlipidemia, HTN, Ischemic cardiomyopathy, obesity, pacemaker, polyneuropathy, sleep apnea. PSH: heart surgery, prostate surgery, tonsillectomy, CABG x 3, coronary artery stent. Medical/Functional History Medical History Reviewed Yes Social History Employment Status Retired Hobbies Yard and garden Oriented Mental Status No Concerns Ortho Subjective Subjective Subjective Pt states that on 05/01/22 he was sharpening knives when the knife slipped and he accidentally cut the back of his hand. Pt lacerated his EIC and EDC and underwent surgical repair by Dr Copeland on 05/05/22. Pt referred to OT for custom splinting and extensor tendon repair protocol. Pt was seen by nurse to have skin check and post-op dressing removed. Sutures are in place, incision is clean and dry, no drainage noted. Pt states he can't wait to get the splint as he has a lot of yard work to do, discussed the importance of protective healing after tendon repair, pt states, I know, but I also know how to be careful. Pain Assessment Pain Present Pain Present No Pain Reported Location Left Hand Intensity 0 OT Objective Data Hand Hand Dominance Right Skin/Wounds Skin Integrity Comments Surgical incision is closed with sutures, clean, dry, no drainage. Sensation Sensation Assessment Summary Comments Reports occasional tingling in his hand. OT Problems Problems Problems Decreased Strength,Decreased Range of Motion,Decreased Dexterity,Decreased Fine Motor ,Decreased Coordination, Sensory Sensitivity,Lifting, Gripping,Pinching Other Problems Opening Containers,Dressing Patient Potential Good Assessment Assessment Assessment Pt presents to OT 1 week and 2 days s/p LUE EIC and EDC tendon repairs. Pt has orders for eval and treat and custom splinting. Pt received evaluation and custom splint today, tolerated splinting procedure well, reports understanding of restrictions and need for protective healing. Pt is limited in all use of the LUE due to need for splint at all times and ongoing limitations for tendon healing. Pt will benefit from skilled OT intervention to incorporate rehab protocol, splinting, and monitoring in order to restore full, pain- free use of the LUE. Occupational Therapy Treatment Plan - OP Goals Goals 1. Pt will be independent and compliant with HEP in order to resume full, pain-free use of the involved UE. 3 weeks 2. Pt will demonstrate full, pain-free AROM of the involved UE in order to improve ability to grasp and hold. 6 weeks 3. 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 8 weeks. Progress set Treatment Plan Treatment Plan Evaluation,Edema Control,Joint Mobilization,Manual Therapy, Splinting,Ultrasound,Wound Care/Scar Management, Therapeutic Exercise, Therapeutic Activities,Self- Care/Home Management,Caregiver Training,Education, Neuromuscular Reeducation Expected Frequency 1-2x Week Expected Duration 10-12 week Certification Certification I Certify That: Therapy Services Provided, Therapy Plan Established, Therapy Plan Reviewed Recertification Information Recertification Information Initial Certification Date 05/14/22 Recertification Due Date 08/13/22 Reasons to Continue Skilled Therapy Pt is initiating rehab for extensor tendon repair, present with limited ROM / function and weakness in the LUE which restricts ability to use his LUE for all ADLs and IADLs. Rehabilitation Potential Good Continued Plan of Care and Interventions Splinting, MT, US, TE, TA self care, education Provider Signature Shows Agreement With POC & Medical Necessity Physician Comment/Change Comment or Changes Physician NPI Number #
== END 2022-06-27 12:49 | disposition home or self-care (01) ==
PROVIDERS: PCP Family Medicine; Visit Provider Orthopaedic Surgery Sports Medicine
DX: Z98.890 Other specified postprocedural states (principal); Z51.89 Encounter for other specified aftercare
CPT/HCPCS: 97035; 97110; 97140; 97165; 97530; L3806; X5282

== ENCOUNTER 2024-04-22 12:10 | Outpatient (CLI) | payer MEDICARE, BC, SELFPAY ==
--- OUTSIDE RECORDS SUMMARY | 2024-04-22 12:15 | XMS_ITS | Clinical Summary ---
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 For routine questions regarding patient records, call [phone] during business hours, M-F 8:00 AM - 5:00 PM Central Time. Record requests for emergency care only can be directed to [phone] at any time.[facility] Allergies Active Allergy Reactions Criticality Noted Date Comments Atorvastatin Other (see comments) High 02/11/2015 Congestion Epinephrine Other (see comments),Palpitations High 1 08/17/2010 Medications Medication Sig Dispensed Refills Start Date End Date Status aspirin 81 mg capsule 81 mg daily. Currently on hold due to recent eye surgery;may restart tomorrow Active cyanocobalamin (VITAMIN B12) 1,000 [address] SL tablet cyanocobalamin (vit B-12) 1,[address] 1 TABLET UNDER THE TONGUE ONCE DAILY Active ferrous sulfate 324 mg (65 mg iron) DR tablet Take 140 mg of iron by mouth. 140mg Active gabapentin (NEURONTIN) 300 mg capsule 300 mg 2 (two) times a day. 05/01/2021 Active melatonin 5 mg capsule Take 1 capsule by mouth at bedtime. 10/24/2021 Active sertraline (ZOLOFT) 50 mg tablet Take 50 mg by mouth daily. 03/13/2021 Active blood sugar diagnostic (Accu-Chek Sheri Plus test strp) strips Accu-Chek Softclix Lancets USE TO TEST FOUR TIMES DAILY Active psyllium (METAMUCIL) powder Take 1 packet by mouth daily. Active acetaminophen (TYLENOL) 500 mg tablet Take 1,000 mg by mouth every 6 (six) hours as needed for pain. Active fluoride, sodium, (PreviDent) 1.1 % gel dental gel PreviDent 5000 Booster Plus 1.1 % dental paste USE TO BRUSH TEETH TWICE DAILY Active glucagon (GlucaGen) 1 mg/mL injection Glucagon (HCl) Emergency Kit 1 mg solution for injection Active NovoLOG U-100 Insulin aspart 100 unit/mL injection Inject under the skin as needed. Active co-enzyme Q-10 30 mg capsule Take 30 mg by mouth daily. Active multivitamin tablet Take 1 tablet by mouth daily. Active chlorthalidone (HYGROTON) 50 mg tablet Take 1 tablet (50 mg total) by mouth daily. 90 tablet 3 09/14/2023 Active lisinopriL (PRINIVIL,ZESTRI L) 10 mg tablet Take 1 tablet (10 mg total) by mouth daily. 90 tablet 3 09/14/2023 Active ferrous gluconate (FERGON) 324 mg (38 mg iron) tablet Take 324 mg by mouth daily with breakfast. 10/30/2023 Active rosuvastatin (CRESTOR) 40 mg tablet TAKE 1 TABLET(40 MG) BY MOUTH EVERY EVENING 90 tablet 3 01/14/2024 Active carvediloL (Coreg) 12.5 mg tablet TAKE 1 TABLET(12.5 MG) BY MOUTH TWICE DAILY WITH MEALS 180 tablet 02/18/2024 Active polyethylene glycol 400 (BLINK TEARS OPHT) Administer 1 drop into affected eye(s) daily. Active blood-glucose sensor ([employer] G7 Sensor) device Active melatonin/herbal no.233 (SLEEP SUPPORT, MELATONIN-HERB, ORAL) Take 1 capsule by mouth daily. 10 mg of CBN, 10 mg of CBD, 5 mg Melatonin Active amLODIPine (Norvasc) 10 mg tablet Take 0.5 tablets (5 mg total) by mouth daily. 03/16/2024 Active dapagliflozin propanediol (Farxiga) 5 mg tablet Take 1 tablet (5 mg total) by mouth daily. 90 tablet 3 03/18/2024 Active dapagliflozin propanediol (Farxiga) 10 mg tablet Take 1 tablet (10 mg total) by mouth daily. 90 tablet 3 04/05/2024 Active isosorbide mononitrate (Imdur) 30 mg 24 hr tablet Take 1 tablet (30 mg total) by mouth daily. 90 tablet 3 04/21/2024 Active isosorbide mononitrate (Imdur) 60 mg 24 hr tablet TAKE 1 TABLET(60 MG) BY MOUTH DAILY 90 tablet 02/25/2024 4 Discontinu ed(Reorder ) Active Problems Problem Noted Date Diagnosed Date Atherosclerosis Of Autologou s Vein Coronary Artery Bypass Graft With Documented Spasm 03/08/2024 Diabetes Mellitus Type 2 Wit h Diabetic Chronic Kidney Disease 12/22/2022 Chronic Kidney Disease (CKD) , Stage 3b Glomerular Filtration Rate (GFR) 30 To 44 09/03/2022 Presence Of Aortocoronary Bypass Graft 1 Personal History Of Malignant Neoplasm Of Prosta te 08/25/2016 Presence Of Coronary Angiopl asty Implant And Graft Status Post 06/12/2015 Hypertension Essential Primary 03/27/2004 Overview (01/03/2022): February 2016: On amlodipine, carvedilol, clonidine, finasteride, lisinopril hydrochlorothiazide combination pill. Decreased lisinopril/ hydrochlorothiazide to once daily due to low blood pressure symptoms. March 2021: Dr. Luong stopped clonidine (0.1 mg twice daily) due to low blood pressure and tired symptoms. Jun 2021: Stopped amlodipine, and started on lisinopril 20mg. Dr. Solis August 01, 2021: amlodipine increased to 10mg per Patient [employer] Message. July 2021: Imdur increased to 60mg by Cardiology. Renal Artery US: 09/2013:Patent bilateral renal arteries Renal Artery US 08/2012: Right and Left <60% stenosis Problem list name updated by automated process. Provider to review Hyperlipidemia 11/16/2002 Overview (01/03/2022): Years ago had side effects from Atorvastatin (Lipitor) of congestion and post nasal drip. October 2013: Endocrinology LDL 62, on statin. December 2014: Endocrinology changed back to Atorvastatin (Lipitor) and increased nasal congestion and post nasal drip. So will change back to Simvastatin (Zocor). Problem list name updated by automated process. Provider to review Encounters Date Type Department Care Team Description 04/20/2024 10:05 AM CDT - 04/20/2024 11:59 PM CDT Hospital Encounter Department of Laboratory Medicine and Pathology, [facility] in [place], [place] [address] [place] [phone] Elizabeth Frost M.D. Chronic Kidney Disease (CKD), Stage 3a Glomerular Filtration Rate (GFR) 45 To 59 (HCC); Diabetes Mellitus Type 2 With Diabetic Chronic Kidney Disease (HCC) Discharge Disposition: Home or Self Care 04/20/2024 10:05 AM CDT - 04/20/2024 11:59 PM CDT Hospital Encounter Department of Laboratory Medicine and Pathology, [place], [place] [address] [place] [address] Elizabeth Frost M.D. Chronic Kidney Disease (CKD), Stage 3a Glomerular Filtration Rate (GFR) 45 To 59 (HCC); Diabetes Mellitus Type 2 With Diabetic Chronic Kidney Disease (HCC) Discharge Disposition: Home or Self Care 04/08/2024 2:53 PM CDT - 04/08/2024 11:59 PM CDT Hospital Encounter Department of Cardiovascular Diseases in [place], [place] [address] [place] [phone] Stalin Wolf M.D. Discharge Disposition: Home or Self Care 03/15/2024 Refill Division of Nephrology and Hypertension in [place], [place] [address] [place] [phone] Elizabeth Frost M.D. Med Refill 03/14/2024 Orders Only Pharmacy Prior Auth RO [phone] Seema Romo 03/10/2024 Clinical Communication Division of Nephrology and Hypertension in [place], [place] [address] [place] [phone] Elizabeth Frost M.D. Rx Prior Authorization 03/08/2024 3:00 PM CDT Office Visit Division of Nephrology and Hypertension in [place], [place] [address] [place] [phone] Elizabeth Frost M.D. Hypertension Benign Renovascular (Primary Dx); Chronic Kidney Disease (CKD), Stage 3a Glomerular Filtration Rate (GFR) 45 To 59 (HCC); Fluid And Electrolyte Disorder; Diabetes Mellitus Type 2 With Diabetic Chronic Kidney Disease (HCC) 03/07/2024 2:00 PM CDT Diagnostic Division of Nephrology and Hypertension in [place], [place] [address] [place] [phone] Elizabeth Frost M.D. Kirkham, Cady I., L.P.N. Chronic Kidney Disease (CKD), Stage 3b Glomerular Filtration Rate (GFR) 30 To 44 (HCC); Hypertension Essential Primary 03/07/2024 1:30 PM CDT - 03/07/2024 11:59 PM CDT Hospital Encounter Department of Laboratory Medicine and Pathology, [place], [place] [address] [place] [phone] Elizabeth Frost M.D. Chronic Kidney Disease (CKD), Stage 3b Glomerular Filtration Rate (GFR) 30 To 44 (HCC); Hypertension Essential Primary Discharge Disposition: Home or Self Care 03/07/2024 1:20 PM CDT - 03/07/2024 1:29 PM CDT Hospital Encounter Department of Laboratory Medicine and Pathology, [facility] in [place], [place] [address] [place] [phone] Elizabeth Frost M.D. Chronic Kidney Disease (CKD), Stage 3b Glomerular Filtration Rate (GFR) 30 To 44 (HCC); Hypertension Essential Primary Discharge Disposition: Home or Self Care 03/07/2024 8:45 AM CDT Clinical Communication Virtual Review in [place], [place] [address] [place] [phone] Pre-visit Intake 02/24/2024 Refill Division of Nephrology and Hypertension in [place], [place] [address] [place] [phone] Alvaro Duong Jr., D.O. Med Refill 02/17/2024 Refill Division of Nephrology and Hypertension in [place], [place] [address] [place] [address] [place] [phone] Alvaro Duong Jr., D.O. Med Refill from Last 3 Months Family History Medical History Relation Name Comments Hypertension Brother 1 Greg anderson Hypertension Brother 2 Greg anderson Breast cancer Father's Sister 1 Radha Anderson Osteoporosis Father's Sister 1 Radha Anderson Osteoporosis Father's Sister 2 Radha Anderson Hypertension Maternal Grandfather Ebenezer Garcia Had exp erimental Adrenal Gland removal at [facility] 1951 Diabetes Maternal Grandmother Wendy Ball Adult o nset Anxiety disorder Mother Kathy Anderson Hypertension Mother Kathy Anderson Psychiatric Mother Kathy Anderson Colon cancer Mother's Brother 1 Benny Garcia Hypertension Mother's Brother 1 Benny Garcia Diabetes Mother's Brother 2 [place] Garcia Adult ons et Hypertension Mother's Brother 2 [place] Garcia Diabetes Mother's Brother 3 Alvaro Garcia Adult ons et Seizures Mother's Brother 3 Alvaro Garcia Colon cancer Mother's Brother 4 Benny Garcia Hypertension Mother's Brother 4 Benny Garcia Diabetes Mother's Brother 5 Yakov Garcia Adult ons et Hypertension Mother's Brother 5 [place] Garcia Diabetes Mother's Brother 6 Alvaro Garcia Adult ons et Seizures Mother's Brother 6 Alvaro Garcia Breast cancer Mother's Sister 1 Iqra Fossum Hypertension Mother's Sister 1 Iqra Fossum Pancreatic cancer Mother's Sister 1 Iqra Fossum Transient ischemic attack Mother's Sister 1 Iqra Fossum Breast cancer Mother's Sister 2 Iqra Fossum panc reatic cancer Hypertension Mother's Sister 2 Iqra Fossum Pancreatic cancer Mother's Sister 2 Iqra Fossum Transient ischemic attack Mother's Sister 2 Iqra Fossum Breast cancer Paternal Grandmother Awilda Anderson Hypertension Sister 1 Vivi justin Hypertension Sister 2 [place] Justin Hypertension Sister 3 Vivi justin Hypertension Sister 4 [place]ip[place] Justin Hypertension Son 1 Orestes Justin Melanoma Son 1 Orestes Justin Hypertension Son 2 Nadir Justin Sleep apnea Son 2 Nadir Justin Hypertension Son 3 Orestes Justin Melanoma Son 3 Orestes Justin Hypertension Son 4 Nadir Justin Sleep apnea Son 4 Nadir Justin Relation Name Status Comments Brother 1 Greg anderson Brother 2 Greg anderson Father's Sister 1 Radha Anderson Father's Sister 2 Radha Anderson Maternal Grandfather Ebenezer Garcia Maternal Grandmother Wendy Ball Mother Kathy Anderson Mother's Brother 1 Benny Garcia Mother's Brother 2 Yakov Garcia Mother's Brother 3 Alvaro Garcia Mother's Brother 4 Benny Garcia Mother's Brother 5 Yakov Garcia Mother's Brother 6 Alvaro Garcia Mother's Sister 1 Iqra Fossum Mother's Sister 2 Iqra Fossum Paternal Grandmother Awilda Anderson Sister 1 Vivi anderson Sister 2 [place] Anderson Sister 3 Vivi anderson Sister 4 [place] Anderson Son 1 Orestes Anderson Son 2 Nadir Anderson Son 3 Orestes Anderson Son 4 Nadir Anderson Social History Tobacco Use Types Packs/Day Years Used Date Smoking Tobacco: Never Passive Smoke Exposure: Never Smokeless Tobacco: Never Tobacco Cessation:Counseling Given: Not Answered Comments:Minimal as teen Alcohol Use Standard Drinks/Week Comments Yes 7 (1 standard drink = 0.6 oz pur e alcohol) [facility] Utilities Answer Date Recorded In the past 12 months has [employer], gas, oil, or water [employer] threatened to shut off services in your home? No 09/11/2023 Humiliation, Afraid, Rape, and Kick questionnair e Answer Date Recorded Within the last year, have y ou been afraid of your partner or ex-partner? No 08/13/2022 Within the last year, have y ou been humiliated or emotionally abused in other ways by your partner or ex-partner? No Within the last year, have y ou been kicked, hit, slapped, or otherwise physically hurt by your partner or ex-partner? No 08/13/2022 Within the last year, have y ou been raped or forced to have any kind of sexual activity by your partner or ex-partner? No 08/13/2022 Social Connection and Isolation Panel [NHANES] A nswer Date Recorded In a typical week, how many times do you talk on the phone with family, friends, or neighbors? Once a week 08/13/19 How often do you get togethe r with friends or relatives? Once a week 08/13/2022 How often do you attend [facility] or alevism services? 1 to 4 times per year 08/13/2022 Do you belong to any clubs o r organizations such as uatsdin groups, unions, fraternal or athletic groups, or school groups? No 08/13/2022 How often do you attend meet ings of the clubs or organizations you belong to? Patient declined 08/13/2022 Are you , , di vorced, , never , or living with a partner? 08/13/2022 AUDIT-C Answer Date Recorded Q1: How often do you have a drink containing alcohol? 4 or more times a week 08/13/2022 Q2: How many drinks containi ng alcohol do you have on a typical day when you are drinking? 1 or 2 3 Q3: How often do you have si x or more drinks on one occasion? Less than monthly 08/13/2022 Overall Financial Resource Strain (CARDIA) Answe r Date Recorded How hard is it for you to pa y for the very basics like food, housing, medical care, and heating? Not hard at all 08/13/2022 [facility] - Occupational Stress Questionnaire Answer Date Recorded Do you feel stress - tense, restless, nervous, or anxious, or unable to sleep at night because your mind is troubled all the time - these days? Only a little 08/13/2022 Exercise Vital Sign Answer Date Recorde d On average, how many days pe r week do you engage in moderate to strenuous exercise (like a brisk walk)? 3 days 09/11/2023 On average, how many minutes do you engage in exercise at this level? 30 min 09/11/2023 Hunger Vital Sign Answer Date Recorded Within the past 12 months, y ou worried that your food would run out before you got the money to buy more. Never true 09/11/19 24 Within the past 12 months, t he food you bought just didn't last and you didn't have money to get more. Never true 09/11/2023 PRAPARE - Transportation Answer Date Re corded In the past 12 months, has l ack of transportation kept you from medical appointments or from getting medications? No 09/2023 In the past 12 months, has l ack of transportation kept you from meetings, work, or from getting things needed for daily living? No 09/11/2023 Nutrition Answer Date Recorded On average, how many serving s of fruits and vegetables do you eat per day (serving size is equal to 1 cup or approximately the size of a tennis ball)? 3-5 09/11/2023 Dental Answer Date Recorded Dental: Regular Dentist Yes 12/21/19 Employment Answer Date Recorded Employment status Retired 09/11/2023 Housing Stability Answer Date Recorded What is your living situation today? I have a [facility] place to live 09/11/2023 Education Answer Date Recorded What is the highest level of school you have completed or the highest degree you have received? Bachelor's degree (e.g., BA, AB, BS) 12/20/2021 Sex and Gender Information Value Date Recorded Sex Assigned at Male 12/20/2021 1:42 AM CDT Gender Identity Male 12/20/2021 1:42 AM CDT Sexual Orientation Straight 12/20/2021 1: 42 AM CDT Last Filed Vital Signs Vital Sign Reading Time Taken Comments Blood Pressure 124/60 03/08/2024 3:41 PM CDT Pulse 60 03/08/2024 3:41 PM CDT Temperature 36 ??C (96.8 ??F) 03/08/2024 2:48 PM CDT Respiratory Rate - - Oxygen Saturation - - Inhaled Oxygen Concentration - - Weight 90.4 kg (199 lb 3 oz) 03/08/2024 2:48 PM CDT Height 178.6 cm (5' 10.32) 03/08/2024 2:48 PM C DT Body Mass Index 28.32 03/08/2024 2:48 PM CDT Plan of Treatment Upcoming Encounters Date Type Department Care Team (Late st Contact Info) Description 06/27/2024 4:00 PM [employer] Telemedicine Division of Nephrology and Hypertension in [place], [place] [address] [place] [address] Elizabeth Frost M.D. [address] [place] [phone] Health Maintenance Due Date Last Done Comments CT Colonography 1950 Cologuard 1950 Diabetic Office Visit with F oot Exam 1950 Dilated Eye Exam 1950 Hepatitis C Screening 1950 Hepatitis B Vaccines (1 of 3 - Risk 3-dose series) 2009 Hemoglobin A1C 06/24/2023 12/22/2022, 030 02/2022, 10/14/2021, Additional history exists Depression Screening (Annual PHQ-2) 08/10/2023 Colonoscopy 09/30/2023 09/30/2018, 09/29/2018 Colorectal Cancer Surveillance 09/30/2023 Influenza Vaccine (#1) 2024 , 05/01/2022, 06/12/2021, Additional history exists Urine Albumin 03/07/2025 03/07/2024, 12/2022, 05/21/2022, Additional history exists Office Visit for Blood Press ure Check / Re-check 03/08/2025 03/08/2024 Creatinine Level (Kidney Fun ction Test) 04/20/2025 04/20/2024, 04/20/2024, 03/28/2024, Additional history exists Potassium Level 04/20/2025 04/20/2024, 04/10, 03/28/2024, Additional history exists Sodium Level 04/20/2025 04/20/2024, 04/10, 03/28/2024, Additional history exists DTaP,Tdap,and Td Vaccines (3 - Td or Tdap) 03/18/2028 03/18/2018, 09/13/2008, 06/30/1997 Lipid (Cholesterol) Screening 06/25/2028, 03/24/2023, 12/26/2022, Additional history exists Pneumococcal vaccine (65+ years) Completed 10/27/2017, 09/11/2016, 12/29/2014, Additional history exists Zoster Vaccines Completed 10/31/2021, 08/16/2021 COVID-19 Vaccine Completed 11/23/2023, 06/2023, 03/09/2023, Additional history exists Fall Risk Screen (Annual) Completed 12/07/2023 Medical Devices Implanted Type Area Finance Clerk Device Identifier Shelf Expiration Date Model / Serial / Lot Bsc 7840 Ingevity + Mri [id number] Implanted: (Quantity not on file) Cardiac Lead [employer] 7840 INGEVITY + MRI / [id number] / Bs [id number] Ingevity + Mri [id number] Implanted: (Quantity not on file) Cardiac Lead [employer] 7841 INGEVITY + MRI / [id number] / Cardiac Stent-09/11/19 15 Implanted: (Quantity not on file) Cardiac Stent Left: Coronary Cardiac Stent- 015 Implanted: (Quantity not on file) Cardiac Stent N/A: Coronary Cardiac Stent- 015 Implanted: (Quantity not on file) Cardiac Stent Left: Coronary Bsc L331 Accolade Mri El [id number] Implanted: (Quantity not on file) Pacemaker [employer] L331 ACCOLADE MRI EL / [id number] / Pacemaker-10/15/2021 Implanted: (Quantity not on file) Pacemaker Left: Heart Procedures Procedure Name Priority Date/Time Associated Diagnosis Comments BASIC METABOLIC PANEL, S/P Routine 04/20/2024 10:37 AM CDT Chronic Kidney Disease (CKD), Stage 3a Glomerular Filtration Rate (GFR) 45 To 59 (HCC) Diabetes Mellitus Type 2 With Diabetic Chronic Kidney Disease (HCC) RENAL FUNCTION PANEL, S Routine 04/20/2024 10:37 AM CDT Chronic Kidney Disease (CKD), Stage 3a Glomerular Filtration Rate (GFR) 45 To 59 (HCC) Diabetes Mellitus Type 2 With Diabetic Chronic Kidney Disease (HCC) INTERFACED REMOTE DEVICE CHECK Routine 04/08/2024 2:53 PM CDT NEP BLOOD PRESSURE CHECK 6 HR Routine 03/08/2024 3:01 PM CDT Chronic Kidney Disease (CKD), Stage 3b Glomerular Filtration Rate (GFR) 30 To 44 (HCC) Hypertension Essential Primary ALBUMIN, RANDOM, U Routine 03/07/2024 1: 46 PM CDT Chronic Kidney Disease (CKD), Stage 3b Glomerular Filtration Rate (GFR) 30 To 44 (HCC) Hypertension Essential Primary PROTEIN/CREATININE RATIO, RANDOM, URINE Routine 03/07/2024 1:46 PM CDT Chronic Kidney Disease (CKD), Stage 3b Glomerular Filtration Rate (GFR) 30 To 44 (HCC) Hypertension Essential Primary CBC WITH DIFFERENTIAL, B Routine 03/07/2024 1:42 PM CDT Chronic Kidney Disease (CKD), Stage 3b Glomerular Filtration Rate (GFR) 30 To 44 (HCC) Hypertension Essential Primary 25-HYDROXYVITAMIN D2 AND D3, S Routine 03/07/2024 1:42 PM CDT Chronic Kidney Disease (CKD), Stage 3b Glomerular Filtration Rate (GFR) 30 To 44 (HCC) Hypertension Essential Primary CYSTATIN C WITH EGFR Routine 03/07/2024 1:42 PM CDT Chronic Kidney Disease (CKD), Stage 3b Glomerular Filtration Rate (GFR) 30 To 44 (HCC) Hypertension Essential Primary RENAL FUNCTION PANEL, S Routine 03/07/2024 1:42 PM CDT Chronic Kidney Disease (CKD), Stage 3b Glomerular Filtration Rate (GFR) 30 To 44 (HCC) Hypertension Essential Primary EXTP LIPID PANEL, BLOOD Routine 06/25/2023 HEMOGLOBIN A1C, B Routine 12/22/2022 7:5 9 AM CDT Hypertension Essential Primary Chronic Kidney Disease (CKD), Stage 3b Glomerular Filtration Rate (GFR) 30 To 44 (HCC) Diabetes Mellitus Type 2 (HCC) from Last 3 Months or Most Recently Relevant to Health Maintenance Results * (ABNORMAL) Renal Function Panel (04/20/2024 10:37 AM CDT) Only the most recent of2 resultswithin the time period is included. [facility] Potassium, S 5.0 3.6 - 5.2 mmol/L 04/20/2024 11:33 AM CDT DTL Sodium, S 134(L) 135 - 145 mmol/L 04/20/2024 11:33 AM CDT DTL Chloride, S 99 98 - 107 mmol/L 04/20/2024 11:33 AM CDT DTL Bicarbonate, S 25 22 - 29 mmol/L 04/20/2024 11:33 AM CDT DTL Anion Gap 10 7 - 15 04/20/2024 11:33 AM CDT DTL BUN (Blood Urea Nitrogen), S 68(H) 8 - 24 mg/dL 04/20/2024 11:33 AM CDT DTL Creatinine 1.60(H) 0.74 - 1.35 mg/dL 04/20/2024 11:33 AM CDT DTL Estimated GFR (eGFR) 45(L) >=60 mL/min/BSA 04/20/2024 11:33 AM CDT DTL Comment: Estimated GFR calculated using the 2020 CKD_EPI creatinine equation. Calcium, Total, S 9.3 8.8 - 10.2 mg/dL 04/20/2024 11:33 AM CDT DTL Glucose, S 130 70 - 140 mg/dL 04/20/2024 11:33 AM CDT DTL Albumin, S 4.4 3.5 - 5.0 g/dL 04/20/2024 11:33 AM CDT DTL Phosphorus (Inorganic), S 4.6(H) 2.5 - 4.5 mg/dL 04/20/2024 11:33 AM CDT DTL Blood (Blood, Venous) 04/20/2024 10:37 AM CDT 04/20/2024 11:15 AM CDT Elizabeth Frost M.D. LAB BLOOD ADD-ON [address] [address], [facility] [address] [address] * (ABNORMAL) Basic Metabolic Panel (04/20/2024 10:37 AM CDT) [facility] Potassium, S 4.9 3.6 - 5.2 mmol/L 04/20/2024 11:38 AM CDT DTL Sodium, S 134(L) 135 - 145 mmol/L 04/20/2024 11:38 AM CDT DTL Chloride, S 98 98 - 107 mmol/L 04/20/2024 11:38 AM CDT DTL Bicarbonate, S 25 22 - 29 mmol/L 04/20/2024 11:38 AM CDT DTL Anion Gap 11 7 - 15 04/20/2024 11:38 AM CDT DTL BUN (Blood Urea Nitrogen), S 67(H) 8 - 24 mg/dL 04/20/2024 11:38 AM CDT DTL Creatinine 1.60(H) 0.74 - 1.35 mg/dL 04/20/2024 11:38 AM CDT DTL Estimated GFR (eGFR) 45(L) >=60 mL/min/BSA 04/20/2024 11:38 AM CDT DTL Comment: Estimated GFR calculated using the 2020 CKD_EPI creatinine equation. Calcium, Total, S 9.2 8.8 - 10.2 mg/dL 04/20/2024 11:38 AM CDT DTL Glucose, S 132 70 - 140 mg/dL 04/20/2024 11:38 AM CDT DTL Blood (Blood, Venous) 04/20/2024 10:37 AM CDT 04/20/2024 11:15 AM CDT Elizabeth Frost M.D. 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 [employer] [facility] SYSTEM Implantable Pulse Generator Type Pacemaker [facility] Implantable Pulse Generator Model L331 [employer] [facility] Implantable Pulse Generator Serial Number [id number] [facility] Implantable Pulse Generator Implant Date [id number] [employer] [facility] Battery Remaining Percentage 100.00 % [employer] [facility] Battery Remaining Longevity 144.0 mo [employer] [facility] Battery Status Beginning of Service [employer] [facility] Kali Statistic RA Percent Paced 94.00 [employer] [facility] Kali Statistic RV Percent Paced 1.00 [employer] [facility] Atrial Tachy Statistic AT/AF [place] Percent 0.00 [facility] Lead Channel Setting Sensing Sensitivity 0.25 [facility] Lead Channel Impedance Value 702 [facility] Lead Channel Pacing Threshold Amplitude 0.500 [facility] Lead Channel Pacing Threshold Pulse Width 0.4 [facility] Lead Channel Measurements Date and Time 2024-04-06 [facility] Lead Channel Setting Pacing Amplitude 2.000 [facility] Lead Channel Setting Pacing Pulse Width 0.4 [facility] Lead Channel Sensing Intrinsic Amplitude 3.300 [facility] Lead Channel Setting Sensing Sensitivity 0.60 [facility] Lead Channel Impedance Value 657 [facility] Lead Channel Pacing Threshold Amplitude 1.600 [facility] Lead Channel Pacing Threshold Pulse Width 0.4 [facility] Lead Channel Measurements Date and Time 2024-04-06 [facility] Lead Channel Setting Pacing Amplitude 2.100 [facility] Lead Channel Setting Pacing Pulse Width 0.4 [facility] Kali Setting Mode (NBG Code) DDDR [facility] Kali Setting Lower Rate Limit 60 [facility] Kali Setting AT Mode Switch Rate 170 [facility] Kali Setting Maximum Tracking Rate 130 [facility] Kali Setting Maximum Sensor Rate 130 [facility] Kali Setting PAV Delay 150 [facility] Kali Setting SYLVAIN Delay 150 [facility] Lead Channel Setting Sensing Polarity Bipolar [facility] Lead Channel Setting Sensing Polarity Bipolar [facility] Lead Channel Setting Pacing Polarity Bipolar [facility] Lead Channel Setting Pacing Polarity Bipolar [facility] Lead Channel Pacing Threshold Polarity Bipolar [facility] Lead Channel Pacing Threshold Polarity Bipolar [facility] Zone Setting Type Category VT [facility] Murj Rate 1 160 [facility] Zone Setting Status Monitor [facility] Murj Zone ID 1 [facility] Implantable Lead [employer] [facility] Implantable Lead Model 7840 Ingevity + MRI [facility] Implantable Lead Location Right Atrium [facility] Implantable Lead Connection Status Connected [facility] Implantable Lead Serial Number [id number] [facility] Implantable Lead Implant Date 20211015 [facility] Implantable Lead [employer] [facility] Implantable Lead Model 7841 Ingevity + MRI [facility] Implantable Lead Location Right Ventricle [facility] Implantable Lead Connection Status Connected [facility] Implantable Lead Serial Number [id number] [facility] Implantable Lead Implant Date 20211015 [facility] Anatomical Region Laterality Modality Other 04/08/2024 3:37 PM CDT Impressions 04/08/2024 3:37 PM CDT Encounter Impression: Title: Normal Remote: No Events * Normal Device Function * Alerts or events: None * Battery: Battery is at 100%, 12.00 yrs * Sensing, impedance and thresholds reviewed * Programmed parameters reviewed * Presenting rhythm reviewed and reports AP-VS at 90 bpm. * Heart Rate Histograms reviewed * No significant changes noted Plan: Routine remote follow up and as needed. This patient underwent device interrogation. I agree that the device interrogation was medically indicated to provide appropriate care and continue routine device interrogations as indicated. Encounter Summary: This report includes 1 transmission that was received on 2024-04-08. Battery, lead impedance, sensing amplitude and pacing threshold data was reviewed. Narrative Procedure Note Stalin Wolf M.D. - 04/08/2024 IMPRESSION: Encounter Impression: Title: Normal Remote: No Events * Normal Device Function * Alerts or events: None * Battery: Battery is at 100%, 12.00 yrs * Sensing, impedance and thresholds reviewed * Programmed parameters reviewed * Presenting rhythm reviewed and reports AP-VS at 90 bpm. * Heart Rate Histograms reviewed * No significant changes noted Plan: Routine remote follow up and as needed. This patient underwent device interrogation. I agree that the deviceinterrogation was medically indicated to provide appropriate care andcontinue routine device interrogations as indicated. Encounter Summary: This report includes 1 transmission that was receivedon 2024-04-08. Battery, lead impedance, sensing amplitude and pacingthreshold data was reviewed. Stalin Wolf M.D. CV IMPLANTABLE CARDI AC DEVICE * NEP Blood pressure check 6 hr (03/08/2024 3:01 PM CDT) Elizabeth Frost M.D. PFT ORDERABLES MMODAL NA * Albumin, Random, Urine (03/07/2024 1:46 PM CDT) Albumin, Random, U 5.4 mg/L 2023 3:30 PM CDT DTL Comment: ----ADDITIONAL INFORMATION---- This test has been modified from the medical van driver's instructions. Its performance characteristics were determined by [facility] in a manner consistent with CLIA requirements. This test has not been cleared or approved by the U.S. Food and Drug Administration. Creatinine 37 mg/dL 03/07/2024 2:53 PM CDT DTL Albumin/Creatinine Ratio 15 <17 mg/g 03/07/2024 3:30 PM CDT DTL Urine (Urine, Midstream) 03/07/2024 1:46 PM CDT 03/07/2024 2:14 PM CDT Elizabeth Frost M.D. LAB URINE ORDERABLES Performing Organization Address City/[facility] Co de Phone Number [facility] [address] [place] [address], [facility] [address] [place] [address] * Protein/Creatinine Ratio, Random, Urine (03/07/2024 1:46 PM CDT) Protein, Total, Random, U 4 mg/dL 03/07/2024 2:53 PM CDT DTL Creatinine, Random, U 37 16 - 326 mg/dL 03/07/2024 2:53 PM CDT DTL Protein/Creatin ine Ratio 0.11 <0.18 mg/mg 03/07/2024 2:53 PM CDT DTL Urine (Urine, Midstream) 03/07/2024 1:46 PM CDT 03/07/2024 2:14 PM CDT Elizabeth Frost M.D. LAB URINE ORDERABLES Performing Organization Address [facility] Co de Phone Number [facility] [address] [place] [address], [facility] [address] [place] [address] * (ABNORMAL) Cystatin C with Estimated GFR (03/07/2024 1:42 PM CDT) Pathologist [facility] eGFR by Cystatin C 36(L) >60 mL/min/BSA 03/07/2024 2:25 PM CDT DTL Comment: Estimated GFR calculated using the CKD-EPI Cystatin C (2012) equation. ----ADDITIONAL INFORMATION---- Cystatin C-based eGFR may differ substantially from creatinine- based eGFR in patients with abnormal muscle mass or acutely changing renal function. ??Please interpret together with relevant clinical features. On 01/03/2021 the cystatin C assay method changed. Cystatin C eGFR results > 50 ml/min/1.73m2 are approximately 10% lower with the new assay. Cystatin C 1.72(H) 0.67 - 1.21 mg/L 03/07/2024 2:25 PM CDT DTL Blood (Blood, Venous) 03/07/2024 1:42 PM CDT 03/07/2024 2:07 PM CDT Elizabeth Frost M.D. LAB BLOOD ADD-ON Performing Organization Address [facility]/ZIP Co de Phone Number [facility] [address] [place] [address], [facility] [address] [place] [address] * 25-Hydroxyvitamin D2 and D3 (03/07/2024 1:42 PM CDT) [facility] 25-Hydroxy D2 <4.0 ng/mL 03/08/2024 5:09 PM CDT SDS 25-Hydroxy D3 35 ng/mL 03/08/2024 5:09 PM CDT SDS 25-Hydroxy D Total 35 ng/mL 2023 5:09 PM CDT [facility] Comment: ----REFERENCE VALUE---- 25-HYDROXY D TOTAL (D2+D3) Optimum levels in the healthy population are 20-50. ----ADDITIONAL INFORMATION---- This test was developed and its performance characteristics determined by [facility] in a manner consistent with CLIA requirements. This test has not been cleared or approved by the U.S. Food and Drug Administration. Blood (Blood, Venous) 03/07/2024 1:42 PM CDT 03/08/2024 7:42 AM CDT Elizabeth Frost M.D. LAB BLOOD ADD-ON Performing Organization Address City/[facility]/ZIP Co de Phone Number [facility] [address] [place] [address] [facility] [address] [facility] [address] [place] [address] * (ABNORMAL) CBC with Differential, Blood (03/07/2024 1:42 PM CDT) Hemoglobin 9.9(L) 13.2 - 16.6 g/dL 03/07/2024 2:06 PM CDT DTL Hematocrit 30.8(L) 38.3 - 48.6 % 03/07/2024 2:06 PM CDT DTL Erythrocytes 3.41(L) 4.35 - 5.65 x10(12)/L 03/07/2024 2:06 PM CDT DTL MCV 90.3 78.2 - 97.9 fL 03/07/2024 2:06 PM CDT DTL RBC Distrib Width 13.2 11.8 - 14.5 % 03/07/2024 2:06 PM CDT DTL Platelet Count 215 135 - 317 x10(9)/L 03/07/2024 2:06 PM CDT DTL Leukocytes 8.2 3.4 - 9.6 x10(9)/L 03/07/2024 2:06 PM CDT DTL Neutrophils 5.61 1.56 - 6.45 x10(9)/L 03/07/2024 2:06 PM CDT [facility] Lymphocytes 1.38 0.95 - 3.07 x10(9)/L 03/07/2024 2:06 PM CDT DTL Monocytes 0.69 0.26 - 0.81 x10(9)/L 03/07/2024 2:06 PM CDT DTL Eosinophils 0.41 0.03 - 0.48 x10(9)/L 03/07/2024 2:06 PM CDT DTL Basophils 0.07 0.01 - 0.08 x10(9)/L 03/07/2024 2:06 PM CDT DTL Blood (Blood, Venous) 03/07/2024 1:42 PM CDT 03/07/2024 1:57 PM CDT Elizabeth Frost M.D. LAB BLOOD ADD-ON [facility] [address] [place], [place] [address] DTL [facility] [address] [place] [address] [facility] [address] [place] [address] * EXT Lipid Panel, Blood (06/25/2023) Pathologist [facility] EXT Cholesterol, Total, S 87 50 - 199 LOS NOT ASSIGNED EXT Triglycerides, S 134 10 - 150 LOS NOT ASSIGNED EXT Cholesterol, HDL, S 37 LOS NOT ASSIGNED EXT Calculated LDL 23 LOS NOT ASSIGNED Blood (Blood, Venous) 06/25/2023 Historical Provider LAB BLOOD NON ADD-ON LOS NOT ASSIGNED * (ABNORMAL) Hemoglobin A1c (12/22/2022 7:59 AM CDT) Hemoglobin A1c, B 6.7(H) 4.0 - 5.6 % 12/22/2022 9:47 AM CDT DTL Comment: Hemoglobin A1c values greater than or equal to 6.5 percent are diagnostic for diabetes mellitus. ??Diagnosis should be confirmed by repeat testing. ??In diabetic patients, HbA1c goals should be discussed with healthcare provider. Blood (Blood, Venous) 12/22/2022 7:59 AM CDT 12/22/2022 8:23 AM CDT Ozzy Carbone M.D. LAB BLOOD ADD-ON [facility] [address] [place] [address], [facility] DTL [facility] [address] [place] [address] from Last 3 Months or Most Recently Relevant to Health Maintenance Care Teams [employer]ra[employer] Worker Relationship Specialty Start Date End Date Elsewhere, Pcp PCP - General Internal Medicine 12/19/22
--- OUTSIDE RECORDS SUMMARY | 2024-04-22 12:15 | XMS_ITS | Clinical Summary ---
Author Organization [employer] Address [place], [place] [address] Care Team Providers Care Mine Development Engineer Name Role Phone Peter Gipson MD Unavailable [phone] Alvaro Norwood MD Unavailable [phone] Francisco Felder MD Unavailable Anatoliy Jackson MD Primary Care Provider [phone] Allergies Active Allergy Reactions Criticality Noted Date Comments Atorvastatin Runny Nose,Other - D escribe In Comment Field High 02/11/2015 Congestion Epinephrine Palpitations,Other - Describe In Comment Field,Tachycardia High 06/17/2011 Medications Medication Sig Dispensed Refills Start Date End Date Status blood sugar diagnostic (ONETOUCH ULTRA TEST) strip as directed 06/22/2006 Active Syringe, Disposable, (TUBERCULIN SYRINGE 1CC) 1 mL syrg by Not Applicable route. 09/18/2004 Active rosuvastatin (CRESTOR) 40 mg tablet Take 1 tablet by mouth at bedtime. 0 08/13/2017 Active durable medical equipment (DME)Indications:Fo ot pain, right,Diabetic polyneuropathy associated with type 2 diabetes mellitus (HC),Type 2 diabetes mellitus with diabetic neuropathy, with long-term current use of insulin (HC) Extra depth diabetic shoes, 3 pair tri layer accommodative inserts. Diagnosis of foot deformity and diabetic Neuropathy. 1 Each 3 08/12/2018 Active Blood-Glucose Sensor (Dexcom G6 Sensor) jamaal Dexcom G6 Sensor device U UTD FOR CONTINUOUS GLUCOSE MONITORING. CHANGE Q 10 DAYS. Active cyanocobalamin (VITAMIN B12) 1,000 mcg sublingual tabletIndications:L ow vitamin B12 level Place 1 Tablet (1,000 mcg) under the tongue once daily. 30 Tablet 2 02/15/2021 Active medication order composjulio Garcia 0 03/11/2021 Active Dexcom G6 Transmitter jamaal USE DIRECTED FOR CONTINUOUS GLUCOSE MONITORING. CHANGE EVERY 90 DAYS 06/11/2021 Active amLODIPine (NORVASC) 5 mg tabletIndications:E ssential hypertension Take 2 Tablets (10 mg) by mouth once daily. 0 07/31/2021 Active isosorbide mononitrate (IMDUR) 60 mg extended release tablet 24 hourIndications:S/P CABG x 3 Take 1 Tablet (60 mg) by mouth once daily. 08/08/2021 Active melatonin 10 mg cap Take by mouth. 0 10/24/2021 A ctive carvediloL (COREG) 12.5 mg tablet Take 1 Tablet (12.5 mg) by mouth 2 times daily with meals. 180 Tablet 10/28/2021 Active aspirin (ECOTRIN) 81 mg enteric coated tablet Take 1 Tablet (81 mg) by mouth once daily with a meal. 0 02/13/2022 Active chlorthalidone (HYGROTON) 25 mg tablet 12/31/2021 Active insulin aspart U-100 (NOVOLOG) 100 unit/mL cartridge subcutaneously for diabetes, sliding scale based on carb consumption and BG - dose per advanced glucose meter 3 mL 08/28/2022 Active lisinopriL (PRINIVIL; ZESTRIL) 10 mg tablet Take 1 Tablet (10 mg) by mouth once daily. 90 Tablet 03/26/2023 Active polyethylene glycol-electrolyte (GOLYTELY) 236-22.74-6.74 -5.86 gram suspensionIndicatio ns:Adenomatous polyp of colon, unspecified part of colon Drink 2 liters the day before colonoscopy and 2 liters 6 hours before colonoscopy appointment 4000 mL 02/15/2024 Active gabapentin (NEURONTIN) 300 mg capsuleIndications: Syncope and collapse Take 1 Capsule (300 mg) by mouth two times daily. Take 1 early evening and 2nd dose at bedtime. 180 Capsule 2 01/06/2024 Active ferrous gluconate 324 mg (37.5 mg iron) tab tabletIndications:M ild chronic anemia Take 1 Tablet (324 mg) by mouth once daily with a meal. 90 Tablet 1 02/25/2024 Active sertraline (ZOLOFT) 50 mg tabletIndications:D epression, major, single episode, mild (HC) TAKE 1 TABLET(50 MG) BY MOUTH EVERY MORNING 90 Tablet 1 03/10/2024 Active dapagliflozin propanediol (FARXIGA) 5 mg tablet Take 1 Tablet (5 mg) by mouth once daily. 03/10/2024 Active Active Problems Problem Noted Date Diagnosed Date Primary osteoarthritis of right knee 03/23/2024 COVID-19 virus infection 02/04/2024 Overview (02/04/2024): January 2024: positive Covid-19 test with symptoms. Did not use paxlovid. Syncope and collapse 08/22/2023 Overview (08/22/2023): July 2023: recurrent episodes of near syncope to syncope which started a few days after torsemide was started, so torsemide was discontinued. Chronic kidney disease, stage 3b 08/21/2023 CARLITOS PSG 06/2021 AHI-8.7 07/11/2021 Restless legs syndrome (RLS) 07/11/2021 Insomnia, idiopathic 04/04/2021 Overview (04/04/2021): March 2021: Dr. Luong took off trazodone and increased gabapentin (neurontin). Iron deficiency anemia 02/15/2021 Adenomatous colon polyp 10/04/2018 Overview (10/04/2018): Colonoscopy 09/2018 polyp, repeat in 5 years Malignant neoplasm of prostate 08/12/2018 Depression, major, single episode, mild 08/12/19 19 Overview (08/12/2018): Aug 2018: starting sertraline (Zoloft), 25 then increase to 50mg. Chronic bursitis of left shoulder 08/12/2018 Overview (08/12/2018): Aug 2018: formal physical therapy ordered. Postoperative anemia due to acute blood loss Mild chronic anemia 04/21/2016 Overview (02/17/2021): Apr 2016: Hemoglobin 11.1, periph smear ordered, retic count normal. Postoperative Hemoglobin down to 8.2, did get 1 transfusion in hospital after Surgery. January 2021: Repeat peripheral smear shows microcytic anemia without sign of hemolysis. Iron studies are all normal (in the [place] system). January 2021: HEMOQUANT FECES negative. February 2021: Hematology Consult with Dr. Robert, labs ordered, recommended decreased alcohol, and blood testing. Possible Bone Marrow Biopsy if no diagnosis found. Non-proliferative diabetic retinopathy, severe, both eyes 09/17/2015 Overview (09/17/2015): see Ophthalmology note Sep 2015, Dr. Norwood. Diabetic polyneuropathy asso ciated with type 1 diabetes mellitus 06/08/2014 Hyperlipidemia LDL goal < 100 10/17/2013 Overview (02/11/2015): Years ago had side effects from Atorvastatin (Lipitor) of congestion and post nasal drip. October 2013: Endocrinology LDL 62, on statin. December 2014: Endocrinology changed back to Atorvastatin (Lipitor) and increased nasal congestion and post nasal drip. So will change back to Simvastatin (Zocor). Coronary artery disease invo lving [place] coronary artery of [place] heart without angina pectoris 06/15/2013 Overview (09/23/2021): June 2013: See scan of abnormal Nuclear Exercise stress test from . Dr. Plummer recommended angiogram. December 2014: Dr. Vasquez, Butadiene Convertor Operator recommended Angiogram due to abnormal stress test. 01/03/15: Angiogram done and [place], no intervention due to plan to travel to [place], Needs fur to ??consider revascularization?? March 2015: Dr. Lucy Gurrola of [facility] consult, medical vs stenting, Patient going to try medical mgmt for now. 2016: had false positive stress test which led to angiogram Mar 2016 with <50% narrowing of the right side, no intervention at angiogram. 04/19/2021: CABG: DOUGLASS to LAD, reverse SVG to PDA, reverse SVG to OM 2. Complicated by postoperative acute kidney injury which improved, bilateral pleural effusions requiring thoracentesis, mild worsening of LV function down to 46%. BPH with urinary obstruction 03/22/2013 Overview (05/25/2016): Urology : Dr. Gipson. Follow up in 1 year Mar 2014. NO meds as symptoms not severe enough. 2012: Dr. Gipson, started flomax. September 2015: [facility] recommended MRI of prostate and possible biopsy due to high PSA. October 2015: prostate biopsies negative. Apr 2016: TURP: small amount of prostate cancer Type 1 diabetes mellitus with diabetic neuropath y 06/17/2011 Overview (11/01/2021): Sees Elevating Grader Operator, Dr. More. Diagnosis at 27 years old (dx 1977), Per Endocrinology Note Dr. Felder July 2021, likely Type 1. HAs Non-proliferative Severe Diabetic Retinopathy, July 2013 Laser treatment Essential hypertension 06/17/2011 Overview (12/26/2022): February 2016: On amlodipine, carvedilol, clonidine, finasteride, [...] 2021: Imdur increased to 60mg by Cardiology. December 2022: Lisinopril change to aliskiren was in the last several weeks. Resolved Problems Problem Noted Date Diagnosed Date Resolved Date Angina pectoris 03/13/2021 10/28/2021 PVD (peripheral vascular dis ease) with claudication 11/21/2013 08/21/2023 Overview (11/21/2013): See scan Sep 2013. Chronic kidney disease (CKD) , stage III (moderate) 04/28/2012 08/21/2023 Overview (08/17/2019): Sees Dr. Mena. Creatinine as high as 2 summer 2011. 05/04/12: Creatinine 1.32 and GFR 55 from [facility]. Creatinine 1.22 at Endocrinology office 10/12/13. Apr 2016: Creatinine 1.27. GFR 57. May 2016: Creatinine 1.66, GFR Jun: Creatinine 1.14, GFR > 60. August 2019: Creatinine. 1.56, GFR 45 per Endocrinology labs. Encounters Date Type Department Care Team Description 04/19/2024 Travel 04/05/2024 Telephone [facility] Cancer Joanna [facility] [address] [place] [id number] Raquel Robert MD [facility] meds 04/01/2024 10:45 AM CDT Preop Visit [facility] [address] [place] [address] Anatoliy Jackson MD Preoperative Exam (DOS: 04/22/2024 [facility]/Dr Muse/Esophagogastrod uodenoscopy ) 04/01/2024 Travel 03/28/2024 11:00 AM CDT Orders Only [facility] [address] [place] [address] Lab, Farm Lab 03/28/2024 Travel 03/23/2024 1:10 PM CDT Office Visit [facility] Joint Replacement [place] [address] [facility] [address] [place] [phone] Vargas Arrington MD Knee Pain/problem (EP right knee osteoarthritis ) 03/23/2024 12:55 PM CDT Ancillary Procedure [facility] Joint Replacement [facility] [address] [facility] [address] [place] [phone] 03/23/2024 Patient Outreach [facility] Joint Replacement [facility] [address] [place] [phone] Maria T Mccall central office inspector Nurse Navigator (Assessment/Education ) 03/23/2024 Transcribe Orders [facility] [place] [address] [place] [address] Vargas Arrington MD 03/23/2024 Travel 03/16/2024 Orders Only [facility] [address] [place] [address] Anatoliy Jackson MD Outside Order 03/08/2024 Refill [facility] [address] [place] [address] Anatoliy Jackson MD Refill Request (Sertraline) 02/26/2024 10:45 AM CDT Orders Only [facility] [address] [place] [address] Lab, Farm Lab 02/26/2024 Travel 02/25/[address] [place] [address] Raquel Robert MD Refill Request 02/17/2024 Telephone [facility] [address] [place] [address] Mor Muse MD Appointment 02/15/2024 3:55 PM CDT Preop Visit [facility] [address] [place] [address] Anatoliy Jackson MD Preoperative Exam (02/19/2024 [facility] with Dr Muse/Colonoscopy & EGD) 02/15/2024 Travel 02/05/2024 1:15 PM CDT Orders Only [facility] [address] [place] [address] Lab, Farm Lab 02/04/2024 10:00 AM CDT Orders Only [facility] [address] [place] [address] Lab, Farm Lab 02/04/2024 Refill [facility] [address] [place] [address] Anatoliy Jackson MD Refill Request (Sertraline) 02/01/2024 Refill [facility] Cancer [facility] - [place] [address] [place] [address] Raquel Robert MD Refill Request 01/29/2024 6:32 PM CDT - 01/29/2024 7:35 PM CDT Emergency [facility] [place] [address] [place] [address] Bin Escudero MD COVID-19 (Primary Dx) Discharge Disposition: Home Self Care 01/27/2024 1:00 PM CDT Office Visit [facility] [address] [place] [address] Mor Muse MD Consult (Loose stools varies day to day) 01/27/2024 Travel from Last 3 Months Immunizations Name Administration Dates Next Due COVID-19 vaccine (Moderna 10 0mcg/0.5mL) CARMEN MDV 11/14/2021,09/14/2020 Influenza, High-dose Inactivated 04/21/2016 Influenza, High-dose Quadriv alent Inactivated 05/20/2023,05/01/2022,06/12/2021 Influenza, IIV3 (Age >=3 years) 07/26/2001 Influenza, IIV4 06/08/2014 Influenza, Inactivated IIV3 (Age 65+ Years) Preserv Free 06/08/2019,08/12/2018,08/13/2017 Pneumococcal Poly,23-Valent (Pneumovax) 10/28/19 18,06/30/1997 Pneumococcal conj 13-Valent (Prevnar 13) 017 RSV, Bivalent Vaccine Recons tituted (Abrysvo 120MCG/0.5mL) 06/04/2023 Tdap 03/18/2018,09/13/2008 Zoster (Shingrix-RZV, recombinant) 10/31/2021, Family History Medical History Relation Name Comments Other Father MVA Cancer Maternal Aunt Hypertension Maternal Grandfather Other Maternal Grandfather of Heart Attack. Conn's Syndrome. Diabetes type II Maternal Grandmother Hypertension Mother Hypertension Sister Relation Name Status Comments Father Maternal Aunt Maternal Grandfather Maternal Grandmother Mother Sister Social History Tobacco Use Types Packs/Day Years Used Date Smoking Tobacco: Never Smokeless Tobacco: Never Tobacco Cessation:Counseling Given: Yes Alcohol Use Standard Drinks/Week Comments Yes 6 (1 standard drink = 0.6 oz pur e alcohol) PHQ-2 Answer Date Recorded PHQ-2 TOTAL SCORE 0 02/15/2024 Social Connections Answer Date Recorded Frequency of Communication with Friends and Fami ly 0 11/23/2023 Financial Resource Strain Answer Date R ecorded Difficulty of Paying Living Expenses 3 11/23/2023 Difficulty of Paying Living Expenses Not on file 11/23/2023 Food Insecurity Answer Date Recorded Worried About Running Out of Food in the Last Ye ar 1 11/23/2023 Transportation Needs Answer Date Record ed Lack of Transportation (Medical) 1 11/23/2023 Housing Stability Answer Date Recorded Unable to Pay for Housing in the Last Year 1 11/23/2023 Sex and Gender Information Value Date Recorded Sex Assigned at Not on file Gender Identity Not on file Sexual Orientation Not on file Obstetrics History Last Filed Vital Signs Vital Sign Reading Time Taken Comments Blood Pressure 107/63 04/01/2024 10:49 AM CDT Pulse 63 04/01/2024 10:49 AM CDT Temperature 37.3 ??C (99.2 ??F) 01/29/2024 6:49 PM CD T Respiratory Rate 16 01/29/2024 6:49 PM CDT Oxygen Saturation 100% 04/01/2024 10: 49 AM CDT Inhaled Oxygen Concentration - - Weight 89.7 kg (197 lb 11.2 oz) 024 10:49 AM CDT Height 181 cm (5' 11.25) 02/15/2024 4:10 PM CDT Body Mass Index 27.38 02/15/2024 4:10 PM CDT Plan of Treatment Upcoming Encounters Date Type Department Care Team (Late st Contact Info) Description 06/10/2024 10:00 AM CDT Orders Only [facility] [address] [place] [address] Lab, Farm 07/04/2024 10:20 AM HUMAN RESOURCE MANAGER Office Visit [facility] [address] [place] [address] Anatoliy Jackson MD [address] [place] [address] 07/12/2024 7:10 AM HUMAN RESOURCE MANAGER Hospital Encounter [facility] [address] [place] [address] Vargas Arrington MD [address] [place] [address] 07/12/2024 7:10 AM HUMAN RESOURCE MANAGER - 07/12/2024 9:12 AM HUMAN RESOURCE MANAGER Surgery [facility] [address] [place] [address] Vargas Arrington MD [address] [place] [address] SAME DAY OUTPATIENT RIGHT TOTAL KNEE ARTHROPLASTY 07/27/2024 10:20 AM HUMAN RESOURCE MANAGER Office Visit [facility] Orthopedics - [facility] [place] [address] [place] [address] Tiffany Anderson PA [address] [place] [address] Scheduled Procedures Name Priority Associated Diagnoses Date/Ti me ARTHROPLASTY KNEE Elective Primary osteoarthritis of right knee 07/12/2024 7:10 AM HUMAN RESOURCE MANAGER Health Maintenance Due Date Last Done Comments Colonoscopy through age 75 09/30/202304/22, 09/30/2018, 09/30/2018, Additional history exists Medicare Wellness for age 65+ 12/27/2023, 02/27/2020, 08/12/2018 Influenza for age 65+ 04/10/2024 05/20/2023 , 05/01/2022, 06/12/2021, Additional history exists BMI (ht and wt on same day) for age 18+ 02/14/2025 02/15/2024, 12/26/2022, 09/15/2022, Additional history exists Depression screening for age 12+ 02/16/2025 02/17/2024, 02/15/2024, 01/01/2023, Additional history exists Lipids for age 45-75 12/27/2027 12/26/2022, 08/14/2017, 06/24/2012, Additional history exists Tetanus booster 03/18/2028 03/18/2018, 09/13/2008 Pneumococcal series for age 65+ Completed 10/27/2017, 09/11/2016, 06/30/1997 Tdap Completed 03/18/2018, 09/13/2008 Hepatitis C screening for ag e 18-79 Completed 08/12/2018 Zoster (shingles) series for age 50+ Completed 10/31/2021, 08/16/2021 COVID-19 vaccine series Completed 11/23/19, 05/20/2023, 03/09/2023, Additional history exists Procedures Procedure Name Priority Date/Time Associated Diagnosis Comments COLONOSCOPY SCREENING Routine 04/22/2024 8:16 AM CDT Colon cancer high risk HEMOGLOBIN Routine 04/01/2024 11:53 AM CDT Preoperative examination RENAL FUNCTION PANEL Routine 03/28/2024 11:15 AM CDT Chronic kidney disease (CKD) stage G3a/A1, moderately decreased glomerular filtration rate (GFR) between 45-59 mL/min/1.73 square meter and albuminuria creatinine ratio less than 30 mg/g (HC) Secondary renovascular hypertension, 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) (HC) XR KNEE WB 3 VIEWS BILATERAL AND 1 VIEW RIGHT Routine 03/23/2024 1:01 PM CDT Primary osteoarthritis of right knee CBC WITH AUTO DIFFERENTIAL Routine 02/26/2024 10:45 AM CDT Mild chronic anemia PSA TOTAL (DIAGNOSTIC) Routine 10:45 AM CDT Enlarged prostate with urinary obstruction COMP METABOLIC PANEL Routine 02/26/2024 10:45 AM CDT Mild chronic anemia CBC WITH AUTO DIFFERENTIAL Routine 02/26/2024 10:45 AM CDT Mild chronic anemia CRYPTOSPORIDIUM GIARDIA RAPID ANTIGEN Routine 02/05/2024 12:25 PM CDT Diarrhea, unspecified type Change in stool Anemia, unspecified type History of colon polyps STOOL PATHOGEN MULTIPLEX PCR PANEL Routine 02/05/2024 12:25 PM CDT Diarrhea, unspecified type Change in stool Anemia, unspecified type History of colon polyps CALPROTECTIN FECAL Routine 02/05/2024 11 :30 AM CDT Diarrhea, unspecified type Change in stool Anemia, unspecified type History of colon polyps CLOSTRIDIOIDES DIFFICILE TOXIN PCR Routine 02/04/2024 2:41 PM CDT Diarrhea, unspecified type Change in stool Anemia, unspecified type History of colon polyps [facility] 84 Routine 02/04/2024 9:30 AM CDT Diarrhea, unspecified type Change in stool Anemia, unspecified type History of colon polyps COVID 19 MOLECULAR EPPA STAT 01/29/2024 6:59 PM CDT INFLUENZA A AND B MOLECULAR AFF ONLY STAT 01/29/2024 6:59 PM CDT LIPID PANEL W REFLEX MEASURED LDL Routine 12/26/2022 1:34 PM CDT Screening for cardiovascular condition ANTI HCV Routine 08/12/2018 2:00 PM HUMAN RESOURCE MANAGER Need for hepatitis C screening test from Last 3 Months or Most Recently Relevant to Health Maintenance Results * (ABNORMAL) HEMOGLOBIN (04/01/2024 11:53 AM CDT) HEMOGLOBIN 10.9(L) 13.5 - 17.5 g/dL 04/01/2024 11:57 AM CDT [facility] MCV 88 80 - 100 fL 04/01/2024 11:57 AM CDT [facility] Blood BLOOD SPECIMEN / Unknown Venipuncture / Unknown 04/01/2024 11:53 AM CDT 04/01/2024 11:54 AM CDT Anatoliy Jackson MD HEMATOLOGY [facility] [place] [address], * (ABNORMAL) RENAL FUNCTION PANEL (03/28/2024 11:15 AM CDT) SODIUM 135(L) 136 - 145 mmol/L 03/28/2024 4:53 PM CDT [facility] POTASSIUM 4.9 3.5 - 5.1 mmol/L 03/28/2024 4:53 PM CDT [facility] CHLORIDE 101 98 - 107 mmol/L 03/28/2024 4:53 PM CDT [facility] CO2,TOTAL 24 22 - 29 mmol/L 03/28/2024 4:53 PM CDT [facility] ANION GAP 10 5 - 18 03/28/2024 4:53 PM CDT [facility] GLUCOSE 179(H) 70 - 99 mg/dL 03/28/2024 4:53 PM CDT [facility] CALCIUM 9.1 8.8 - 10.2 mg/dL 03/28/2024 4:53 PM CDT [facility] BUN 57(H) 8 - 23 mg/dL 03/28/2024 4:53 PM T [facility] CREATININE 1.68(H) 0.70 - 1.20 mg/dL 03/28/2024 4:53 PM T [facility] BUN/CREAT RATIO 34(H) 10 - 20 4 4:53 PM T [facility] eGFR 42(L) >90 mL/min/1.7 3m2 03/28/2024 4:53 PM CDT [facility] Comment:As of 2021, eG FR is calculated by the CKD-EPI creatinine equation without race adjustment. ??eGFR can be influenced by muscle mass, exercise, and diet. ??The reported eGFR is an estimation only and is only applicable if the renal function is stable. PHOSPHORUS 4.7(H) 2.5 - 4.5 mg/dL 03/28/2024 4:53 PM CDT [facility] ALBUMIN 4.1 4.0 - 4.9 g/dL 03/28/2024 4:53 PM CDT [facility] Blood BLOOD SPECIMEN / Unknown Venipuncture / Unknown 03/28/2024 11:15 AM CDT 03/28/2024 11:15 AM CDT Anatoliy Jackson MD CHEMISTRY [facility] [address] [place] [address], [place] * XR KNEE WB 3 VIEWS BILATERAL AND 1 VIEW RIGHT (03/23/2024 1:01 PM CDT) Anatomical Region Laterality Modality KNEES, KNEE R Digital Radiogra phy Impressions 03/23/2024 4:19 PM CDT Tricompartmental Degenerative Disease of right knee. Moderate osteoarthritis of the medial compartment left knee. All services were personally performed by Vargas Arrington MD. Documentation performed by Neptali Bermudez MS, LAT, ATC, OTC ??based on my observation of services performed and provider statements to me. Vargas Arrington MD 03/23/2024 Narrative 03/23/2024 4:19 PM CDT This radiology exam was performed at [facility] Orthoped[facility] Radiology Department and interpreted by Vargas Arrington MD. HISTORY Right knee pain. TECHNICAL Views were obtained consisting of bilateral AP weight bearing, bilateral butler weight bearing, bilateral sunrise non weight bearing, and right lateral views of the knee(s). ?? FINDINGS: Severe tibial plateau sclerosis of the lateral compartment End Stage (bone on bone) medial compartment joint space narrowing right knee(s) varus knee alignment Moderate osteoarthritis of the medial compartment left knee. Vargas Arrington MD GENERAL IMAGIN G * (ABNORMAL) CBC WITH AUTO DIFFERENTIAL (02/26/2024 10:45 AM CDT) WHITE BLOOD COUNT 7.6 4.5 - 11.0 thou/cu mm 02/26/2024 10:58 AM CDT [facility] [place] [place] RED BLOOD COUNT 3.43(L) 4.30 - 5.90 mil/cu mm 02/26/2024 10:58 AM CDT [facility] [place] [place] HEMOGLOBIN 10.3(L) 13.5 - 17.5 g/dL 02/26/2024 10:58 AM CDT [facility] [place] [place] HEMATOCRIT 30.5(L) 37.0 - 53.0 % 02/26/2024 10:58 AM CDT [facility] [place] [place] MCV 89 80 - 100 fL 02/26/2024 10:58 AM CDT [facility] [place] [place] MCH 30.0 26.0 - 34.0 pg 02/26/2024 10:58 AM CDT [facility] [place] [place] MCHC 33.8 32.0 - 36.0 g/dL 02/26/2024 10:58 AM CDT [facility] [place] [place] RDW 12.7 11.5 - 15.5 % 02/26/2024 10:58 AM CDT [facility] [place] [place] PLATELET COUNT 209 140 - 440 thou/cu mm 02/26/2024 10:58 AM CDT [facility] [place] [place] MPV 9.0 6.5 - 11.0 fL 02/26/2024 10:58 AM CDT [facility] [place] [place] % NEUT 62.2 % 02/26/2024 10:58 AM CDT [facility] [place] [place] % LYMPH 20.6 % 02/26/2024 10:58 AM CDT [facility] [place] [place] % MONO 11.3 % 02/26/2024 10:58 AM CDT [facility] [place] [place] % EOS 5.5 % 02/26/2024 10:58 AM CDT [facility] [place] [place] % BASO 0.4 % 02/26/2024 10:58 AM CDT [facility] [place] [place] ABSOLUTE NEUTROPHILS 4.7 1.7 - 7.0 thou/cu mm 02/26/2024 10:58 AM CDT [facility] [place] [place] ABSOLUTE LYMPHOCYTES 1.6 0.9 - 2.9 thou/cu mm 02/26/2024 10:58 AM CDT [facility] [place] [place] ABSOLUTE MONOCYTES 0.9(H) <0.9 thou/cu mm 02/26/2024 10:58 AM CDT [facility] [place] [place] ABSOLUTE EOSINOPHILS 0.4 <0.5 thou/cu mm 02/26/2024 10:58 AM CDT [facility] [place] [place] ABSOLUTE BASOPHILS 0.0 <0.3 thou/cu mm 02/26/2024 10:58 AM CDT [facility] [place] [place] Blood BLOOD SPECIMEN / Unknown Venipuncture / Unknown 02/26/2024 10:45 AM CDT 02/26/2024 10:45 AM CDT Narrative [facility] [place] [place] - 02/26/2024 10:58 AM CDT This procedure was originally ordered at [facility]. Debra Bhatt NP HEMATOLOGY Performing Organization Address City/State/[facility] Co de Phone Number [facility] [place] [place] [address] [place] [address], * PSA TOTAL (DIAGNOSTIC) (02/26/2024 10:45 AM CDT) PSA TOTAL (DIAGNOSTIC) 0.09 <4.00 ng/mL 02/26/2024 5:35 PM CDT [facility] Blood BLOOD SPECIMEN / Unknown Venipuncture / Unknown 02/26/2024 10:45 AM CDT 02/26/2024 10:45 AM [facility]T [facility] 02/26/2024 5:35 PM CDT The test method changed on 02/03/2023. If this test has been used for serial monitoring, rebaselining is recommended. Rebaselining consists of 2 measurements, collected 3-6 weeks apart. The Chad Ele[employer]ys total PSA assay is an electrochemiluminescence immunoassay ECLIA performed on the Chad Vinh e immunoassay analyzers. Values obtained with different assay methods may be different and cannot be used interchangeably. Anatoliy Jackson MD [facility] [address] [place] [address], * (ABNORMAL) COMP METABOLIC PANEL (02/26/2024 10:45 AM CDT) SODIUM 138 136 - 145 mmol/L 02/26/2024 5:34 PM CDT [facility] POTASSIUM 5.2(H) 3.5 - 5.1 mmol/L 02/26/2024 5:34 PM CDT [facility] CHLORIDE 104 98 - 107 mmol/L 02/26/2024 5:34 PM CDT [facility] CO2,TOTAL 22 22 - 29 mmol/L 02/26/2024 5:34 PM CDT [facility] ANION GAP 12 5 - 18 02/26/2024 5:34 PM CDT [facility] GLUCOSE 160(H) 70 - 99 mg/dL 02/26/2024 5:34 PM CDT [facility] CALCIUM 9.1 8.8 - 10.2 mg/dL 02/26/2024 5:34 PM CDT [facility] BUN 60(H) 8 - 23 mg/dL 02/26/2024 5:34 PM CDT [facility] CREATININE 1.46(H) 0.70 - 1.20 mg/dL 02/26/2024 5:34 PM CDT [facility] BUN/CREAT RATIO 41(H) 10 - 20 5:34 PM T [facility] eGFR 50(L) >90 mL/min/1.7 3m2 02/26/2024 5:34 PM CDT [facility] Comment:As of 2021, eG FR is calculated by the CKD-EPI creatinine equation without race adjustment. ??eGFR can be influenced by muscle mass, exercise, and diet. ??The reported eGFR is an estimation only and is only applicable if the renal function is stable. ALBUMIN 4.2 4.0 - 4.9 g/dL 02/26/2024 5:34 PM CDT [facility] PROTEIN,TOTAL 6.4 6.0 - 8.0 g/dL 02/26/2024 5:34 PM CDT [facility] BILIRUBIN,TOTAL 0.3 0.0 - 1.2 mg/dL 02/26/2024 5:34 PM CDT [facility] ALK PHOSPHATASE 45 40 - 129 IU/L 02/26/2024 5:34 PM CDT [facility] ALT (SGPT) 24 10 - 50 IU/L 02/26/2024 5:34 PM CDT [facility] AST (SGOT) 30 10 - 50 IU/L 02/26/2024 5:34 PM CDT [facility] Blood BLOOD SPECIMEN / Unknown Venipuncture / Unknown 02/26/2024 10:45 AM CDT 02/26/2024 10:45 AM CDT Debra Bhatt NP CHEMISTRY Performing Organization Address City/[facility]/ZIP Co de Phone Number [facility] [address] [place] [address], * CRYPTOSPORIDIUM GIARDIA RAPID ANTIGEN (02/05/2024 12:25 PM CDT) CRYPTOSPORIDIUM Negative 4 2:23 PM CDT [facility] GIARDIA ANTIGEN Negative 4 2:23 PM CDT [facility] Stool STOOL SPECIMEN / Unknown Non-Blood / Unknown 02/05/2024 12:25 PM CDT 02/05/2024 12:59 PM CDT Mor Muse MD MICROBIOLOGY [facility] [address] [place] [address], * STOOL PATHOGEN MULTIPLEX PCR PANEL (02/05/2024 12:25 PM CDT) Campylobacter NOT Detected NOT Detected 02/07/2024 10:59 AM CDT [facility] Salmonella NOT Detected NOT Detected 02/07/2024 10:59 AM CDT [facility] Shigella NOT Detected NOT Detected 02/07/2024 10:59 AM CDT [facility] Vibrio NOT Detected NOT Detected 02/07/2024 10:59 AM CDT [facility] Yersinia Enterocolitica NOT Detected NOT Detected 02/07/2024 10:59 AM CDT [facility] Shiga Toxin 1 NOT Detected NOT Detected 02/07/2024 10:59 AM CDT [facility] Shiga Toxin 2 NOT Detected NOT Detected 02/07/2024 10:59 AM CDT [facility] Norovirus NOT Detected NOT Detected 02/07/2024 10:59 AM CDT [facility] Rotavirus NOT Detected NOT Detected 02/07/2024 10:59 AM CDT [facility] Stool STOOL SPECIMEN / Unknown Non-Blood / Unknown 02/05/2024 12:25 PM CDT 02/05/2024 12:59 PM CDT [facility] - 02/07/2024 10:59 AM CDT This test is a Culture Independent Diagnostic Test (CIDT) therefore isolates are not available for susceptibility testing. ??Antibiotic treatment is often contraindicated and may be detrimental in cases of enteric infections, thus routine susceptibility testing is not recommended. Mor Muse MD MICROBIOLOGY [facility] [address] [place] [address], * CALPROTECTIN FECAL (02/05/2024 11:30 AM CDT) Calprotectin Fecal 9 0 - 120 ug/g 02/09/2024 11:06 PM CDT [facility] Comment: Concentration ? Interpretation ?? Follow-Up < 5 - 50 ug/g ? Normal ? None >50 -120 ug/g ? Borderline ? Re-evaluate in 4-6 weeks ?>120 ug/g ? Abnormal ? Repeat as clinically ? indicated Stool STOOL SPECIMEN / Unknown Non-Blood / Unknown 02/05/2024 11:30 AM CDT 02/05/2024 12:59 PM CDT Narrative [facility] ([facility] - 02/09/2024 11:06 PM CDT Performed at: ??[address] ??[id number] Risk Control Manager: Siomara Fleming MD, Phone: ??[phone] Mor Muse MD SEND OUTS Performing Organization Address [facility] de Phone Number [facility] ([facility]) [address] [place] [address], * CLOSTRIDIOIDES DIFFICILE TOXIN PCR (02/04/2024 2:41 PM CDT) CLOSTRIDIUM DIFFICILE PCR Negative 02/05/2024 4:28 PM CDT [facility] PRESUMPTIVE NAP1 STRAIN Negative 02/05/2024 4:28 PM CDT [facility] Stool STOOL SPECIMEN / Unknown Non-Blood / Unknown 02/04/2024 2:41 PM CDT 02/05/2024 12:57 PM CDT Narrative [facility] - 02/05/2024 4:28 PM CDT The NAP1 (027 or BI) strain is a hypervirulent strain. Detection may be useful for epidemiological purposes. Mor Muse MD MICROBIOLOGY Performing Organization Address City/[facility]/ZIP Co de Phone Number [facility] [address] * PANCREATIC ELASTASE FECAL (02/04/2024 9:30 AM CDT) [facility] Pancreatic Elast Fecal 637 >200 ug Elast./g 02/11/2024 11:08 AM CDT [facility] ([facility]) Comment: ? Severe Pancreatic Insufficiency: ?<100 ? Moderate Pancreatic Insufficiency: ?? 100 - 200 ? Normal: ? >200 Stool STOOL SPECIMEN / Unknown Non-Blood / Unknown 02/04/2024 9:30 AM CDT 02/05/2024 12:57 PM CDT [facility] ([facility]ET) - 02/11/2024 11:08 AM CDT Performed at: ??[address] ??[id number] Risk Control Manager: Siomara Fleming MD, Phone: ??[phone] Mor Muse MD MICROBIOLOGY Performing Organization Address [facility]/State/[facility] Co de Phone Number [facility] ([facility]) [address] [place] [address], * (ABNORMAL) COVID 19 MOLECULAR (01/29/2024 6:59 PM CDT) [facility] COVID 19 MOLECULAR Positive(A ) Negative 01/29/2024 7:07 PM CDT [facility] Comment: SARS-CoV-2 viral RNA detected. ? Positive results do not rule out bacterial infection or co-infection ? with other viruses. Swab SPECIMEN FROM NASAL FOSSAE / Unknown Non-Blood / Unknown 01/29/2024 6:59 PM CDT 01/29/2024 6:[address] [facility] - 01/29/2024 7:07 PM CDT This test was developed and its performance characteristics determined by [email or web address]. This test has not been FDA cleared or approved. This test has been authorized by FDA under an Emergency Use Authorization (EUA). This test has been validated in accordance with the FDA's Guidance Document (Policy for Diagnostics Testing in Laboratories Certified to Perform High Complexity Testing under CLIA prior to Emergency Use Authorization for Coronavirus Disease-2019 during the Public Health Emergency) issued on October 08, 2019(updated 10/24/2019, 12/12/2019, and 12/19/2019). This test is only authorized for the duration of time the declaration that circumstances exist justifying the authorization of the emergency use of in vitro diagnostic tests for detection of SARS-CoV-2 virus and/or diagnosis of COVID-19 infection under section 564(b)(1) of the Act, 21 U.S.C. 360bbb-3(b)(1), unless the authorization is terminated or revoked sooner. The ID NOW COVID-19 Letter of Authorization, along with the authorized Fact Sheet for Healthcare Providers, the authorized Fact Sheet for Patients, and authorized labeling are available on the FDA website: https://www.fda.gov/MedicalDevices/Safety/ EmergencySituations/rnq564525.htm. Bin Escudero MD MICROBIOLOGY Performing Organization Address City/[facility] Co de Phone Number [facility] [address] [place] [address] * INFLUENZA A AND B MOLECULAR AFF ONLY (01/29/2024 6:59 PM CDT) Influenza A Molecular Negative Influenza A - Viral RNA Not Detected Negative Influenza A - Viral RNA Not Detected 01/29/2024 7:20 PM CDT [facility] Influenza B Molecular Negative Influenza B - Viral RNA Not Detected Negative Influenza B - Viral RNA Not Detected 01/29/2024 7:20 PM CDT [facility] Other SPECIMEN FROM NASAL FOSSAE / Unknown Non-Blood / Unknown 01/29/2024 6:59 PM CDT 01/29/2024 6:59 PM CDT Bin Escudero MD MICROBIOLOGY [facility] [address] [place] [address] * (ABNORMAL) LIPID PANEL W REFLEX MEASURED LDL [[id number]] (12/26/2022 1:34 PM CDT) CHOLESTEROL,TOTAL 108 100 - 199 mg/dL 12/27/2022 1:22 AM CDT [facility] Comment: Cholesterol, Total Reference Ranges Desirable <200 mg/dL Borderline 200-239 mg/dL High >=240 mg/dL TRIGLYCERIDES 142 <150 mg/dL 12/27/2022 1:22 AM CDT [facility] HDL CHOLESTEROL 40(L) >40 mg/dL 1:22 AM CDT [facility] NON-HDL CHOLESTEROL 68 <145 mg/dl 12/27/2022 1:22 AM CDT [facility] CHOL/HDL RATIO 2.70 <4.50 12/27/2022 1:22 AM CDT [facility] LDL CHOLESTEROL 40 <=130 mg/dL 12/27/2022 1:22 AM CDT [facility] VLDL CHOLESTEROL 28 <=30 mg/dL 12/27/2022 1:22 AM CDT [facility] PROVIDER ORDERED STATUS RANDOM 12/27/2022 1:22 AM CDT [facility] Blood BLOOD SPECIMEN / Unknown Venipuncture / Unknown 12/26/2022 1:34 PM CDT 12/26/2022 1:36 PM CDT Anatoliy Jackson MD CHEMISTRY [facility] [address] [place] [address], * COLONOSCOPY (09/30/2018 8:45 AM HUMAN RESOURCE MANAGER) 09/30/2018 8:45 AM HUMAN RESOURCE MANAGER Narrative Transcriptions Mor Muse MD - 09/30/2018 9:38 AM CST Patient Name: Nikita Anderson Procedure Date: 09/30/2018 Gender: Male Date of : 1950 Admit Type: Outpatient Procedure: Colonoscopy Proceduralist: Mor Muse MD , Tahira Chavez (Nurse) Indications/Pre-Op Diagnosis: Surveillance: Personal history ofadenomatous polyps on last colonoscopy 5 years ago, Last colonoscopy: July 2013 Medications: Fentanyl 100 micrograms IV, Midazolam 2 mgIV, The level of sedation administered wasmoderate Procedure Description: The patient had risks, benefits and alternatives explained to andgave informed consent. The patient had a stable cardiopulmonary status and judged an adequate candidate for conscious sedation. The [id number] was passed through the anus and advanced tothe cecum, identified by appendiceal orifice and ileocecal valve. The colonoscopy was performed without difficulty. The patient toleratedthe procedure well. The quality of the bowel preparation was good. The ileocecal valve, appendiceal orifice, and rectum were photographed. Complications: No immediate complications. Estimated Blood Loss & Specimen: Estimated blood loss: none. Specimen collected - Yes and sent to Laboratory Findings: The perianal and digital rectal examinations were normal. A 3 mm polyp was found in the transverse colon. The polyp wassessile. The polyp was removed with a cold snare. Resection and retrieval were complete. Multiple small and large-mouthed diverticula were found in thesigmoid colon and descending colon. There was narrowing of the colon in association with the diverticular opening. There was evidence of diverticular spasm. The exam was otherwise without abnormality on direct and retroflexion views. Impressions/Post-Op Diagnosis: - One 3 mm polyp in the transverse colon, removed with a cold snare. Resected and retrieved. - Moderate diverticulosis in the sigmoid colon and in the descending colon. There was narrowing of the colon in association with the diverticular opening. There was evidence of diverticular spasm. - The examination was otherwise normal on direct and retroflexionviews. Recommendation: - Patient has a contact number available for emergencies. The signsand symptoms of potential delayed complications were discussed with the patient. Return to normal activities tomorrow. Written discharge instructions were provided to the patient. - Resume previous diet. - Continue present medications. - Await pathology results. - Repeat colonoscopy in 5 years for surveillance. Moderate Sedation: Moderate (conscious) sedation was administered by the endoscopy nurse and supervised by the endoscopist. The following parameters were monitored: oxygen saturation, heart rate, respiratory rate, blood pressure, adequacy of pulmonary ventilation and reponse to care. [facility] and nursing notes for moderate sedation details. Total physician intraservice time was 21 minutes. Mor Muse MD 09/30/2018 9:38:56 AM This report has been signed electronically. Note Initiated On: 09/30/2018 8:45 AM Procedure Code(s): --- Professional --- 60929, Colonoscopy, flexible; with removalof tumor(s), polyp(s), or other lesion(s) bysnare technique Diagnosis Code(s): --- Professional --- Z86.010, Personal history of colonicpolyps D12.3, Benign neoplasm of transverse colon (hepatic flexure or splenic flexure) K57.30, Diverticulosis of large intestine without perforation or abscess withoutbleeding CPT copyright 2017 [employer]. All rights reserved. The codes documented in this report are preliminary and upon home designer reviewmay be revised to meet current compliance requirements. Scope In: 9:16:58 AM Scope Withdrawal Time 0 hours 9 minutes 24 seconds Scope Out: 9:35:37 AM Mor Muse MD PROCEDURE ORD * ANTI HCV (08/12/2018 2:00 PM HUMAN RESOURCE MANAGER) HEPATITIS C ANTIBODY Non-React prasanna Non-React prasanna 08/12/2018 9:24 PM HUMAN RESOURCE MANAGER [facility] Comment:Antibodies to HCV no t detected; does not exclude the possibility of exposure to HCV. Blood BLOOD SPECIMEN / Unknown Venipuncture / Unknown 08/12/2018 2:00 PM HUMAN RESOURCE MANAGER 08/12/2018 2:00 PM HUMAN RESOURCE MANAGER Anatoliy Jackson MD SEND OUTS [facility] [address] [place] [address], from Last 3 Months or Most Recently Relevant to Health Maintenance Advance Directives Documents on File Type Date Recorded Patient Operations Professional Expl anatreva Healthcare Directive 11/23/2023 024 Healthcare Directive 12/13/2014 6:37 PM * Full Code (Latest Code Status on File) Date Activated Date Inactivated Comments 04/23/2016 5:24 PM 04/25/2016 2:40 PM * Full Code Date Activated Date Inactivated Comments 04/22/2016 10:18 PM 04/23/2016 5:24 PM Care Teams Mine Development Engineer Relationship Specialty Start Date End Date Anatoliy Jackson MD [address] [place] [address] PCP - General Family Practice 11/04/22 Peter Gipson MD [address] [facility] [address] [place] [address] Urology Surgery - Urology 08/12/18 Alvaro Norwood MD [address] [place] [address] [address] [place] [address] Ophthalmology Surgery - Ophthalmology 02/27/20 Francisco Felder MD [address] [place] [place] [address] Endocrinology Endocrinology 03/11/21
--- OUTSIDE RECORDS SUMMARY | 2024-04-22 12:16 | XMS_ITS | Referral Summary ---
Author Organization [facility] Address [address] [place] [address] Care Team Providers Care Office Administration Name Role Phone Elsewhere, Pcp Primary Care Provider Unavailabl e Source Comments Patient records contain information from all sites at [facility]. For routine questions regarding patient records, call [phone] during business hours, M-F 8:00 AM - 5:00 PM Central Time. Record requests for emergency care only can be directed to [phone] at any time.[facility] Encounters Date Type Department Care Team Description 04/20/2024 10:05 AM CDT - 04/20/2024 11:59 PM CDT Hospital Encounter Department of Laboratory Medicine and Pathology, [place], [place] [address] [place] [phone] Elizabeth Frost M.D. Chronic Kidney Disease (CKD), Stage 3a Glomerular Filtration Rate (GFR) 45 To 59 (HCC); Diabetes Mellitus Type 2 With Diabetic Chronic Kidney Disease (HCC) Discharge Disposition: Home or Self Care 04/20/2024 10:05 AM CDT - 04/20/2024 11:59 PM CDT Hospital Encounter Department of Laboratory Medicine and Pathology, [place], [place] [address] [place] [phone] Elizabeth Frost M.D. Chronic Kidney Disease (CKD), Stage 3a Glomerular Filtration Rate (GFR) 45 To 59 (HCC); Diabetes Mellitus Type 2 With Diabetic Chronic Kidney Disease (HCC) Discharge Disposition: Home or Self Care 04/08/2024 2:53 PM CDT - 04/08/2024 11:59 PM CDT Hospital Encounter Department of Cardiovascular Diseases in [place], [place] [address] [place] [phone] Stalin Wolf M.D. Discharge Disposition: Home or Self Care 03/15/2024 Refill Division of Nephrology and Hypertension in [address] [phone] Elizabeth Frost M.D. Med Refill 03/14/2024 Orders Only Pharmacy Prior Auth RO [phone] Seema Romo 03/10/2024 Clinical Communication Division of Nephrology and Hypertension in [address] [phone] Elizabeth Frost M.D. Rx Prior Authorization 03/08/2024 3:00 PM CDT Office Visit Division of Nephrology and Hypertension in [address] [phone] Elizabeth Frost M.D. Hypertension Benign Renovascular (Primary Dx); Chronic Kidney Disease (CKD), Stage 3a Glomerular Filtration Rate (GFR) 45 To 59 (HCC); Fluid And Electrolyte Disorder; Diabetes Mellitus Type 2 With Diabetic Chronic Kidney Disease (HCC) 03/07/2024 8:45 AM CDT Clinical Communication Virtual Review in [address] [phone] Pre-visit Intake 03/07/2024 1:30 PM CDT - 03/07/2024 11:59 PM CDT Hospital Encounter Department of Laboratory Medicine and Pathology, [place], [place] [address] [place] [phone] Elizabeth Frost M.D. Chronic Kidney Disease (CKD), Stage 3b Glomerular Filtration Rate (GFR) 30 To 44 (HCC); Hypertension Essential Primary Discharge Disposition: Home or Self Care 03/07/2024 1:20 PM CDT - 03/07/2024 1:29 PM CDT Hospital Encounter Department of Laboratory Medicine and Pathology, [facility] in [place], [place] [address] [place] [phone] Elizabeth Frost M.D. Chronic Kidney Disease (CKD), Stage 3b Glomerular Filtration Rate (GFR) 30 To 44 (HCC); Hypertension Essential Primary Discharge Disposition: Home or Self Care 03/07/2024 2:00 PM CDT Diagnostic Division of Nephrology and Hypertension in [place], [place] [address] [place] [address] Elizabeth Frost M.D. Kirkham, Cady I., L.P.Lorena. Chronic Kidney Disease (CKD), Stage 3b Glomerular Filtration Rate (GFR) 30 To 44 (HCC); Hypertension Essential Primary 02/24/2024 Refill Division of Nephrology and Hypertension in [place], [place] [address] [place] [address] Alvaro Duong Jr., D.O. Med Refill 02/17/2024 Refill Division of Nephrology and Hypertension in [place], [place] [address] [place] [address] Alvaro Duong Jr., D.O. Med Refill from Last 3 Months Allergies Active Allergy Reactions Criticality Noted Date [...] into affected eye(s) daily. Active blood-glucose sensor ([email or web address] G7 Sensor) device Active melatonin/herbal no.233 (SLEEP [...] 2021: amlodipine increased to 10mg per Patient Uberseqt Message. July 2021: Imdur increased to 60mg [...] updated by automated process. Provider to review Social History Tobacco Use Types Packs/Day Years Used Date Smoking Tobacco: Never Passive Smoke Exposure: Never Smokeless Tobacco: Never Tobacco Cessation:Counseling Given: Not Answered Comments:Minimal as teen Alcohol Use Standard Drinks/Week Comments Yes 7 (1 standard drink = 0.6 oz pur e alcohol) [facility] Utilities Answer Date Recorded In the past 12 months has [employer], gas, oil, or water [employer] threatened to shut off services in your [...] week 08/13/2022 How often do you attend [facility] or moravian services? 1 to 4 times per year 08/13/2022 Do you belong to any clubs o r organizations such as faith groups, unions, fraternal or athletic groups, or [...] and heating? Not hard at all 08/13/2022 [facility] - Occupational [...] your living situation today? 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 [address] [place] [address] Medical Devices Implanted Type Area Accounting Administrator Device Identifier Shelf Expiration Date Model / Serial / Lot Bs 7840 Ingevity + Mri [id number] Implanted: (Quantity not on file) Cardiac Lead [employer] 7840 INGEVITY + MRI / [id number] / Bsc 7841 Ingevity + Mri [id number] Implanted: (Quantity not on file) Cardiac Lead [employer] 7841 INGEVITY + MRI / [id number] / Cardiac Stent-09/11/19 15 Implanted: (Quantity not on file) Cardiac Stent Left: Coronary Cardiac Stent- 015 Implanted: (Quantity not on file) Cardiac Stent N/A: Coronary Cardiac Stent- 015 Implanted: (Quantity not on file) Cardiac Stent Left: Coronary [facility] L331 Accolade Mri El [id number] Implanted: (Quantity not on file) Pacemaker [employer] L331 ACCOLADE MRI EL / [id number] / Pacemaker-10/15/2021 Implanted: (Quantity not on file) [...] of2 resultswithin the time period is included. Pathologist [facility] Potassium, S 5.0 3.6 - 5.2 mmol/L [...] CDT Elizabeth Frost M.D. LAB BLOOD ADD-ON [facility] [address] [place] [address], [facility] [address] [place] [address] * (ABNORMAL) Basic Metabolic Panel (04/20/2024 10:37 AM CDT) Potassium, S 4.9 3.6 - 5.2 mmol/L [...] CDT Elizabeth Frost M.D. LAB BLOOD ADD-ON [facility] [address] [place] [address], [facility] [address] [place] [address] * CAR CARDIAC DEVICE INTERROGATION (04/08/2024 2:53 PM CDT) Date Time Interrogation Session [id number] [facility] Type Interrogation Session Remote Scheduled [facility] Implantable Pulse Generator Accounting Administrator [employer] [employer] [facility] Implantable Pulse Generator Type Pacemaker [facility] Implantable Pulse Generator Model L331 [facility] Implantable Pulse Generator Serial Number [id number] [facility] Implantable Pulse Generator Implant Date [id number] [facility] Battery Remaining Percentage 100.00 % [facility] Battery Remaining Longevity 144.0 mo [facility] Battery Status Beginning of Service [facility] Kali Statistic RA Percent Paced 94.00 [facility] Kali Statistic RV Percent Paced 1.00 [facility] Atrial Tachy Statistic AT/AF [place] Percent 0.00 [facility] Lead Channel Setting Sensing Sensitivity 0.25 [facility] Lead Channel Impedance Value 702 [facility] Lead Channel Pacing Threshold Amplitude 0.500 [facility] Lead Channel Pacing Threshold Pulse Width 0.4 [facility] Lead Channel Measurements Date and Time 2024-04-06 [facility] Lead Channel Setting Pacing Amplitude 2.000 [facility] Lead Channel Setting Pacing Pulse Width 0.4 [facility] Lead Channel Sensing Intrinsic Amplitude 3.300 [facility] Lead Channel Setting Sensing Sensitivity 0.60 [facility] Lead Channel Impedance Value 657 [facility] Lead Channel Pacing Threshold Amplitude 1.600 [facility] Lead Channel Pacing Threshold Pulse Width 0.4 [facility] Lead Channel Measurements Date and Time 2024-04-06 [facility] Lead Channel Setting Pacing Amplitude 2.100 [facility] Lead Channel Setting Pacing Pulse Width 0.4 [facility] Kali Setting Mode (NBG Code) DDDR [facility] Kali Setting Lower Rate Limit 60 [facility] Kali Setting AT Mode Switch Rate 170 [facility] Kali Setting Maximum Tracking Rate 130 [facility] Kali Setting Maximum Sensor Rate 130 [facility] Kali Setting PAV Delay 150 [facility] Kali Setting SYLVAIN Delay 150 [facility] Lead Channel Setting Sensing Polarity Bipolar [facility] Lead Channel Setting Sensing Polarity Bipolar [facility] Lead Channel Setting Pacing Polarity Bipolar [facility] Lead Channel Setting Pacing Polarity Bipolar [facility] Lead Channel Pacing Threshold Polarity Bipolar [facility] Lead Channel Pacing Threshold Polarity Bipolar [facility] Zone Setting Type Category VT [facility] Murj Rate 1 160 [facility] Zone Setting Status Monitor [facility] Murj Zone ID 1 [facility] Implantable Lead Accounting Administrator [employer] [facility] Implantable Lead Model 7840 Ingevity + MRI [facility] Implantable Lead Location Right Atrium [facility] Implantable Lead Connection Status Connected [facility] Implantable Lead Serial Number [id number] [facility] Implantable Lead Implant Date 20211015 [facility] Implantable Lead Accounting Administrator [employer] [facility] Implantable Lead Model 7841 Ingevity + MRI [facility] Implantable Lead Location Right Ventricle [facility] Implantable Lead Connection Status Connected [facility] Implantable Lead Serial Number [id number] [facility] Implantable Lead Implant Date 20211015 [facility] Anatomical Region Laterality Modality Other [...] This test has been modified from the geological specialist's instructions. Its performance characteristics were determined by [facility] in a manner consistent with CLIA requirements. This test has not been cleared or approved by the U.S. Food and Drug Administration. Creatinine 37 mg/dL 03/07/2024 2:53 PM CDT DTL Albumin/Creatinine Ratio 15 <17 mg/g 03/07/2024 3:30 PM CDT DTL Urine (Urine, Midstream) 03/07/2024 1:46 PM CDT 03/07/2024 2:14 PM CDT Elizabeth Frost M.D. LAB URINE ORDERABLES Performing Organization Address [facility] Co de Phone Number [facility] [address] [place], [place] [id number] [place] [address] [address] [place] [address] * Protein/Creatinine Ratio, Random, Urine (03/07/2024 1:46 [...] M.D. LAB URINE ORDERABLES Performing Organization Address [facility] Co de Phone Number [facility] [address] [place], [place] [phone] [place] [phone] * (ABNORMAL) Cystatin C with Estimated GFR (03/07/2024 1:42 PM CDT) eGFR by Cystatin C 36(L) >60 mL/min/BSA [...] CDT Elizabeth Frost M.D. LAB BLOOD ADD-ON [facility] [address] [place] [address], [facility] DTL [facility] [address] [place] [address] * 25-Hydroxyvitamin D2 and D3 (03/07/2024 1:42 PM CDT) 25-Hydroxy D2 <4.0 ng/mL 03/08/2024 5:09 PM CDT [facility] 25-Hydroxy D3 35 ng/mL 03/08/2024 5:09 PM CDT [facility] 25-Hydroxy D Total 35 ng/mL 2023 5:09 PM CDT [facility] Comment: ----REFERENCE VALUE---- 25-HYDROXY D TOTAL (D2+D3) Optimum levels in the healthy population are 20-50. ----ADDITIONAL INFORMATION---- This test was developed and its performance characteristics determined by [facility] in a manner consistent with CLIA requirements. This test has not been cleared or approved by the U.S. Food and Drug Administration. Blood (Blood, Venous) 03/07/2024 1:42 PM CDT 03/08/2024 7:42 AM CDT Elizabeth Frost M.D. LAB BLOOD ADD-ON [facility] [employer] [address] [place] [address] [facility] [address] [place] [address] [place] [address] * (ABNORMAL) CBC with Differential, Blood (03/07/2024 [...] CDT Elizabeth Frost M.D. LAB BLOOD ADD-ON [facility] [address] [place] [address], [place] DTL [facility] [address] [place] [address] [facility] [address] [place] [address] * EXT Lipid Panel, Blood (06/25/2023) EXT Cholesterol, Total, S 87 50 - [...] CDT Ozzy Carbone M.D. LAB BLOOD ADD-ON [facility] [address] [place] [address], [place] DTL [facility] [address] [place] [address] from Last 3 Months or Most Recently Relevant to Health Maintenance Care Teams Office Administration Relationship Specialty Start Date End Date Elsewhere, Pcp PCP - General Internal Medicine 12/19/22
--- OUTSIDE RECORDS SUMMARY | 2024-04-22 12:16 | XMS_ITS | Encounter Summary ---
Author Organization [facility] Address [address] [place] [address] Care Team Providers Care Bullet Swaging Machine Adjuster Name Role Phone Elsewhere, Pcp Primary Care Provider Unavailabl e Encounter Details Date Type Department Care Team (Latest Contact Info) Description 04/20/2024 10:05 AM CDT - 04/20/2024 11:59 PM CDT Hospital Encounter Department of Laboratory Medicine and Pathology, [facility] in [place], [place] [address] [place] [address] Elizabeth Frost M.D. [address] [place] [phone] Chronic Kidney Disease (CKD), Stage 3a Glomerular Filtration Rate (GFR) 45 To 59 (HCC); Diabetes Mellitus Type 2 With Diabetic Chronic Kidney Disease (HCC) Discharge Disposition: Home or Self Care Social History Tobacco Use Types Packs/Day Years Used Date Smoking Tobacco: Never Passive Smoke Exposure: Never Smokeless Tobacco: Never Comments:Minimal as teen Alcohol Use Standard Drinks/Week Comments Yes 7 (1 standard drink = 0.6 oz pur e alcohol) [facility] Utilities Answer Date Recorded In the past 12 months has e [employer], gas, oil, or water [employer] threatened to shut off services in your [...] week 08/13/2022 How often do you attend chur ch or jew services? 1 to 4 times per year 08/13/2022 Do you belong to any clubs o r organizations such as denominational groups, unions, fraternal or athletic groups, or [...] and heating? Not hard at all 08/13/2022 [facility] Occupat ional Health - Occupational Stress [...] your living situation today? I have a [facility] place to live 09/11/2023 Education Answer Date Recorded What is the highest level of school you have completed or the highest degree you have received? Bachelor's degree (e.g., BA, AB, BS) 12/20/2021 Sex and Gender Information Value Date Recorded Sex Assigned at Male 12/20/2021 1:42 AM CDT Gender Identity Male 12/20/2021 1:42 AM CDT Sexual Orientation Straight 12/20/2021 1: 42 AM CDT documented as of this encounter Medications at Time of Discharge Medication Sig Dispensed Refills Start Date End Date acetaminophen (TYLENOL) 500 mg tablet Take 1,000 mg by mouth every 6 (six) hours as needed for pain. amLODIPine (Norvasc) 10 mg tablet Take 0.5 tablets (5 mg total) by mouth daily. 03/16/2024 aspirin 81 mg capsule 81 mg daily. Currently on hold due to recent eye surgery;may restart tomorrow blood sugar diagnostic (Accu-Chek Sheri Plus test strp) strips Accu-Chek Softclix Lancets USE TO TEST FOUR TIMES DAILY blood-glucose sensor (FlexMinder G7 Sensor) device carvediloL (Coreg) 12.5 mg tablet TAKE 1 TABLET(12.5 MG) BY MOUTH TWICE DAILY WITH MEALS 180 tablet 02/18/2024 chlorthalidone (HYGROTON) 50 mg tablet Take 1 tablet (50 mg total) by mouth daily. 90 tablet 3 09/14/2023 co-enzyme Q-10 30 mg capsule Take 30 mg by mouth daily. cyanocobalamin (VITAMIN B12) 1,000 [address] SL tablet cyanocobalamin (vit B-12) 1,[address] 1 TABLET UNDER THE TONGUE ONCE DAILY dapagliflozin propanediol (Farxiga) 10 mg tablet Take 1 tablet (10 mg total) by mouth daily. 90 tablet 3 04/05/2024 dapagliflozin propanediol (Farxiga) 5 mg tablet Take 1 tablet (5 mg total) by mouth daily. 90 tablet 3 03/18/2024 ferrous gluconate (FERGON) 324 mg (38 mg iron) tablet Take 324 mg by mouth daily with breakfast. 10/30/2023 ferrous sulfate 324 mg (65 mg iron) DR tablet Take 140 mg of iron by mouth. 140mg fluoride, sodium, (PreviDent) 1.1 % gel dental gel PreviDent 5000 Booster Plus 1.1 % dental paste USE TO BRUSH TEETH TWICE DAILY gabapentin (NEURONTIN) 300 mg capsule 300 mg 2 (two) times a day. 05/01/2021 glucagon (GlucaGen) 1 mg/mL injection Glucagon (HCl) Emergency Kit 1 mg solution for injection isosorbide mononitrate (Imdur) 30 mg 24 hr tablet Take 1 tablet (30 mg total) by mouth daily. 90 tablet 3 04/21/2024 lisinopriL (PRINIVIL,ZESTRIL) 10 mg tablet Take 1 tablet (10 mg total) by mouth daily. 90 tablet 3 09/14/2023 melatonin 5 mg capsule Take 1 capsule by mouth at bedtime. 10/24/2021 melatonin/herbal no.233 (SLEEP SUPPORT, MELATONIN-HERB, ORAL) Take 1 capsule by mouth daily. 10 mg of CBN, 10 mg of CBD, 5 mg Melatonin multivitamin tablet Take 1 tablet by mouth daily. NovoLOG U-100 Insulin aspart 100 unit/mL injection Inject under the skin as needed. polyethylene glycol 400 (BLINK TEARS OPHT) Administer 1 drop into affected eye(s) daily. psyllium (METAMUCIL) powder Take 1 packet by mouth daily. rosuvastatin (CRESTOR) 40 mg tablet TAKE 1 TABLET(40 MG) BY MOUTH EVERY EVENING 90 tablet 3 01/14/2024 sertraline (ZOLOFT) 50 mg tablet Take 50 mg by mouth daily. 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 [address] [place] [address] documented as of this encounter Procedures Procedure Name Priority Date/Time Associated Diagnosis Comments RENAL FUNCTION PANEL, S Routine 04/20/2024 10:37 AM CDT Chronic Kidney Disease (CKD), Stage 3a Glomerular Filtration Rate (GFR) 45 To 59 (HCC) Diabetes Mellitus Type 2 With Diabetic Chronic Kidney Disease (HCC) documented in this encounter Results * (ABNORMAL) Renal Function Panel (04/20/2024 10:37 AM CDT) Potassium, S 5.0 3.6 - 5.2 mmol/L [...] CDT Elizabeth Frost M.D. LAB BLOOD ADD-ON [facility] [place] [address] [place] [address], [facility] [address] [place] [address] documented in this encounter Visit Diagnoses Diagnosis Chronic Kidney Disease (CKD), Stage 3a Glomerular Filtration Rate (GFR) 45 To 59 (HCC) Diabetes Mellitus Type 2 With Diabetic Chronic Kidney Disease (HCC) documented in this encounter Care Teams Bullet Swaging Machine Adjuster Relationship Specialty Start Date End Date Elsewhere, Pcp PCP - General Internal Medicine 12/19/22 documented as of this encounter
--- OUTSIDE RECORDS SUMMARY | 2024-04-22 12:16 | XMS_ITS | Encounter Summary ---
Author Organization [facility] Address [address] [place] [address] Care Team Providers Care Education Specialist Name Role Phone Elsewhere, Pcp Primary Care Provider Unavailabl e Encounter Details Date Type Department Care Team (Latest Contact Info) Description 03/07/2024 1:20 PM CDT - 03/07/2024 1:29 PM CDT Hospital Encounter Department of Laboratory Medicine and Pathology, [facility] in [place], [place] [address] [place] [address] Elizabeth Frost M.D. [address] [place] [phone] Chronic Kidney Disease (CKD), Stage 3b Glomerular Filtration Rate (GFR) 30 To 44 (HCC); Hypertension Essential Primary Discharge Disposition: Home or Self Care Social History Tobacco Use Types Packs/Day Years Used Date Smoking Tobacco: Never Passive Smoke Exposure: Never Smokeless Tobacco: Never Comments:Minimal as teen Alcohol Use Standard Drinks/Week Comments Yes 7 (1 standard drink = 0.6 oz pur e alcohol) [facility] Utilities Answer Date Recorded In the past 12 months has e [employer], gas, oil, or water company threatened to shut off services in your [...] 08/13/2022 How often do you attend chur or denominational services? 1 to 4 times per year 08/13/2022 Do you belong to any clubs o r organizations such as alevism groups, unions, fraternal or athletic groups, or [...] and heating? Not hard at all 08/13/2022 [facility] of Occupat ional Health - Occupational Stress [...] your living situation today? I have a [facility] to live 09/11/2023 Education Answer Date [...] 6 (six) hours as needed for pain. aspirin 81 mg capsule 81 mg daily. Currently on hold due to recent eye surgery;may restart tomorrow blood sugar diagnostic (Accu-Chek Sheri Plus test strp) strips Accu-Chek Softclix Lancets USE TO TEST FOUR TIMES DAILY blood-glucose sensor (Dexcom G7 Sensor) device carvediloL (Coreg) 12.5 mg [...] TABLET UNDER THE TONGUE ONCE DAILY ferrous gluconate (FERGON) 324 mg (38 mg [...] Emergency Kit 1 mg solution for injection lisinopriL (PRINIVIL,ZESTRIL) 10 mg tablet Take 1 [...] Take 50 mg by mouth daily. 03/13/2021 amLODIPine (NORVASC) 10 mg tablet Take 1 tablet (10 mg total) by mouth daily. 90 tablet 1 09/14/2023 03/16/2024 cloNIDine (CATAPRES-TTS) 0.2 mg/[address] 1 patch on the skin once a week. 12 patch 3 09/14/2023 03/08/2024 hydrALAZINE (APRESOLINE) 25 mg tablet Take 1 tablet (25 mg total) by mouth every 8 (eight) hours. Along with Hydralazine 50 mg TID, for total daily dose of 75mg TID. 270 tablet 3 09/14/2023 03/08/2024 hydrALAZINE (APRESOLINE) 50 mg tablet Take 1 tablet (50 mg total) by mouth every 8 (eight) hours. Along with Hydralazine 25mg TID, for total daily dose of 75mg TID. 270 tablet 2 01/18/2024 03/08/2024 isosorbide mononitrate (Imdur) 60 mg 24 hr tablet TAKE 1 TABLET(60 MG) BY MOUTH DAILY 90 tablet 02/25/2024 04/20/2024 documented as of this encounter Plan of Treatment Upcoming Encounters Date Type Department Care Team (Late st Contact Info) Description 06/27/2024 4:00 PM SHEET COMBINING OPERATOR Telemedicine Division of Nephrology and Hypertension in [place], [place] [address] [place] [address] Elizabeth Frost M.D. [address] [place] [address] documented as of this encounter Procedures Procedure Name Priority Date/Time Associated Diagnosis Comments RENAL FUNCTION PANEL, S Routine 03/07/2024 1:42 [...] 30 To 44 (HCC) Hypertension Essential Primary documented in this encounter Results * (ABNORMAL) CBC with Differential, Blood (03/07/2024 [...] M.D. LAB BLOOD ADD-ON Performing Organization Address [facility] Co de Phone Number [facility] [address] [place] [address], [facility] DTL [facility] [address] [place] [address] DHPM [facility] [address] [place] [address] * 25-Hydroxyvitamin D2 and D3 (03/07/2024 1:42 PM CDT) 25-Hydroxy D2 <4.0 ng/mL 03/08/2024 5:09 PM CDT [facility] 25-Hydroxy D3 35 ng/mL 03/08/2024 5:09 PM CDT [facility] 25-Hydroxy D Total 35 ng/mL 2023 5:09 PM CDT [facility] Comment: ----REFERENCE VALUE---- 25-HYDROXY D TOTAL (D2+D3) Optimum levels in the healthy population are 20-50. ----ADDITIONAL INFORMATION---- This test was developed and its performance characteristics determined by [facility] in a manner consistent with CLIA requirements. This test has not been cleared or approved by the U.S. Food and Drug Administration. Blood (Blood, Venous) 03/07/2024 1:42 PM CDT 03/08/2024 7:42 AM CDT Elizabeth Frost M.D. LAB BLOOD ADD-ON Performing Organization Address City/[facility]/ZIP Co de Phone Number [facility] [place] [address] [place] [address] [facility] [address] [place] [address] [place] [address] * (ABNORMAL) Cystatin C with Estimated GFR [...] CDT Elizabeth Frost M.D. LAB BLOOD ADD-ON [facility] [address] [place] [address], [facility] [address] [address] * (ABNORMAL) Renal Function Panel (03/07/2024 1:42 PM CDT) [facility] Potassium, S 5.0 3.6 - 5.2 mmol/L 03/07/2024 2:25 PM CDT DTL Sodium, S 141 135 - 145 mmol/L 03/07/2024 2:25 PM CDT DTL Chloride, S 106 98 - 107 mmol/L 03/07/2024 2:25 PM CDT DTL Bicarbonate, S 24 22 - 29 mmol/L 03/07/2024 2:25 PM CDT DTL Anion Gap 11 7 - 15 03/07/2024 2:25 PM CDT DTL BUN (Blood Urea Nitrogen), S 49(H) 8 - 24 mg/dL 03/07/2024 2:25 PM CDT DTL Creatinine 1.30 0.74 - 1.35 mg/dL 03/07/2024 2:25 PM CDT DTL Estimated GFR (eGFR) 58(L) >=60 mL/min/BSA 03/07/2024 2:25 PM CDT DTL Comment: Estimated GFR calculated using the 2020 CKD_EPI creatinine equation. Calcium, Total, S 9.5 8.8 - 10.2 mg/dL 03/07/2024 2:25 PM CDT DTL Glucose, S 153(H) 70 - 140 mg/dL 03/07/2024 2:25 PM CDT DTL Albumin, S 4.2 3.5 - 5.0 g/dL 03/07/2024 2:25 PM CDT DTL Phosphorus (Inorganic), S 3.6 2.5 - 4.5 mg/dL 03/07/2024 2:25 PM CDT DTL Blood (Blood, Venous) 03/07/2024 1:42 PM CDT 03/07/2024 2:07 PM CDT Elizabeth Frost M.D. LAB BLOOD ADD-ON [facility] [address] [place] [address], [facility] [address] [place] [address] documented in this encounter Visit Diagnoses Diagnosis Chronic Kidney Disease (CKD), Stage 3b Glomerular Filtration Rate (GFR) 30 To 44 (HCC) Hypertension Essential Primary documented in this encounter Care Teams Education Specialist Relationship Specialty Start Date End Date Elsewhere, Pcp PCP - General Internal Medicine 12/19/22 documented as of this encounter
--- OUTSIDE RECORDS SUMMARY | 2024-04-22 12:16 | XMS_ITS | Encounter Summary ---
Author Organization [facility] Address [address] [place] [address] Care Team Providers Care Chartered Financial Analyst Name Role Phone Elsewhere, Pcp Primary Care Provider Unavailabl e Encounter Details Date Type Department Care Team (Late st Contact Info) Description 03/14/2024 Orders Only Pharmacy Prior Auth CHAN [phone] Seema Romo Social History Tobacco Use Types Packs/Day Years Used Date Smoking Tobacco: Never Passive Smoke Exposure: Never Smokeless Tobacco: Never Comments:Minimal as teen Alcohol Use Standard Drinks/Week Comments Yes 7 (1 standard drink = 0.6 oz pur e alcohol) [facility] Utilities Answer Date Recorded In the past 12 months has e electric, gas, oil, or water company threatened to [...] friends, or neighbors? Once a week 08/13/19 23 How often do you get togethe r with friends or relatives? Once a week 08/13/2022 How often do you attend chur ch or jainism services? 1 to 4 times per year 08/13/2022 Do you belong to any clubs o r organizations such as pentecostalism groups, unions, fraternal or athletic groups, or [...] and heating? Not hard at all 08/13/2022 [facility] of Occupat ional Health - Occupational [...] your living situation today? I have a [facility] place to live 09/11/2023 Education Answer [...] st Contact Info) Description 06/27/2024 4:00 PM FIRST ASSIST Telemedicine Division of Nephrology and Hypertension in [place], [place] [address] [place] [address] Elizabeth Frost M.D. [address] [place] [address] documented as of this encounter Visit Diagnoses Not on filedocumented in this encounter Care Teams Chartered Financial Analyst Relationship Specialty Start Date End Date Elsewhere, Pcp PCP - General Internal Medicine 12/19/22 documented as of this encounter
--- OUTSIDE RECORDS SUMMARY | 2024-04-22 12:16 | XMS_ITS | Encounter Summary ---
Author Organization [facility] Address [address] [place] [address] Care Team Providers Care Insulation Board Head Saw Operator Name Role Phone Elsewhere, Pcp Primary Care Provider Unavailabl e Reason for Visit * Reason Onset Date Comments Pre-visit Intake 03/07/2024 Encounter Details Date Type Department Care Team (Latest Contact Info) Description 03/07/2024 8:45 AM CDT Clinical Communication Virtual Review in [place], [place] [address] [place] [address] Pre-visit Intake Social History Tobacco Use Types Packs/Day Years Used Date Smoking Tobacco: Never Passive Smoke Exposure: Never Smokeless Tobacco: Never Comments:Minimal as teen Alcohol Use Standard Drinks/Week Comments Yes 7 (1 standard drink = 0.6 oz pur e alcohol) [facility] Utilities Answer Date Recorded In the past 12 months has e [employer], gas, oil, or water [employer] threatened to shut off services in your [...] How often do you attend chur or congregational services? 1 to 4 times per year 08/13/2022 Do you belong to any clubs o r organizations such as jainism groups, unions, fraternal or athletic groups, or [...] and heating? Not hard at all 08/13/2022 [facility] of Occupat ional Health - Occupational [...] your living situation today? I have a [facility] place to live 09/11/2023 Education Answer Date [...] st Contact Info) Description 06/27/2024 4:00 PM KINDERGARTEN ASSISTANT Telemedicine Division of Nephrology and Hypertension in [place], [place] [address] [place] [address] Elizabeth Frost M.D. [address] [place] [address] documented as of this encounter Visit Diagnoses Not on filedocumented in this encounter Care Teams Insulation Board Head Saw Operator Relationship Specialty Start Date End Date Elsewhere, Pcp PCP - General Internal Medicine 12/19/22 documented as of this encounter
--- OUTSIDE RECORDS SUMMARY | 2024-04-22 12:16 | XMS_ITS | Encounter Summary ---
Author Organization [facility] Address [address] [place] [address] Care Team Providers Care Split Leather Department Supervisor Name Role Phone Elsewhere, Pcp Primary Care Provider Unavailabl e Reason for Visit * Reason Onset Date Comments Rx Prior Authorization 03/10/2024 Encounter Details Date Type Department Care Team (Latest Contact Info) Description 03/10/2024 Clinical Communication Division of Nephrology and Hypertension in [place], [place] [address] [place] [address] Elizabeth Frost M.D. [address] [place] [address] Rx Prior Authorization Social History Tobacco Use Types Packs/Day Years Used Date Smoking Tobacco: Never Passive Smoke Exposure: Never Smokeless Tobacco: Never Comments:Minimal as teen Alcohol Use Standard Drinks/Week Comments Yes 7 (1 standard drink = 0.6 oz pur e alcohol) [facility] Utilities Answer Date Recorded In the past 12 months has [employer], gas, oil, or water [employer] threatened to shut off services in your [...] often do you attend chur ch or oriental orthodox services? 1 to 4 times per year 08/13/2022 Do you belong to any clubs o r organizations such as worship groups, unions, [employer] or athletic groups, or school groups? No [...] and heating? Not hard at all 08/13/2022 [facility] [place] of Occupat ional Health - Occupational Stress [...] your living situation today? I have a [facility] place to live 09/11/2023 Education Answer [...] st Contact Info) Description 06/27/2024 4:00 PM CASH MANAGEMENT CLERK Telemedicine Division of Nephrology and Hypertension in [place], [place] [address] [place] [address] Elizabeth Frost M.D. [address] [place] [address] documented as of this encounter Visit Diagnoses Not on filedocumented in this encounter Care Teams Split Leather Department Supervisor Relationship Specialty Start Date End Date Elsewhere, Pcp PCP - General Internal Medicine 12/19/22 documented as of this encounter
--- OUTSIDE RECORDS SUMMARY | 2024-04-22 12:16 | XMS_ITS | Encounter Summary ---
Author Organization [facility] Address [address] [place] [address] Care Team Providers Care Feed Grinder Name Role Phone Elsewhere, Pcp Primary Care Provider Unavailabl e Encounter Details Date Type Department Care Team (Late st Contact Info) Description 03/07/2024 2:00 PM CDT Diagnostic Division of Nephrology and Hypertension in [place], [place] [address] [place] [address] Elizabeth Frost M.D. [address] [place] [phone] [employer] I., L.P.N. Chronic Kidney Disease (CKD), Stage 3b Glomerular Filtration Rate (GFR) 30 To 44 (HCC); Hypertension Essential Primary Social History Tobacco Use Types Packs/Day Years Used Date Smoking Tobacco: Never Passive Smoke Exposure: Never Smokeless Tobacco: Never Comments:Minimal as teen Alcohol Use Standard Drinks/Week Comments Yes 7 (1 standard drink = 0.6 oz pur e alcohol) [facility] Utilities Answer Date Recorded In the past 12 months has e [employer], gas, oil, or water company threatened to [...] How often do you attend chur or yazidism services? 1 to 4 times per year [...] and heating? Not hard at all 08/13/2022 [facility] of Occupat ional Health - Occupational Stress [...] st Contact Info) Description 06/27/2024 4:00 PM INSURANCE SPECIAL AGENT Telemedicine Division of Nephrology and Hypertension in [place], [place] [address] [place] [phone] Elizabeth Frost M.D. [address] [place] [phone] documented as of this encounter Procedures Procedure Name Priority Date/Time Associated Diagnosis Comments NEP BLOOD PRESSURE CHECK 6 HR Routine 03/08/2024 3:01 PM CDT Chronic Kidney Disease (CKD), Stage 3b Glomerular Filtration Rate (GFR) 30 To 44 (HCC) Hypertension Essential Primary documented in this encounter Results * NEP Blood pressure check 6 hr (03/08/2024 3:01 PM CDT) Elizabeth Frost M.D. PFT ORDERABLES MMODAL NA documented in this encounter Visit Diagnoses Diagnosis Chronic Kidney Disease (CKD), Stage 3b Glomerular Filtration Rate (GFR) 30 To 44 (HCC) Hypertension Essential Primary documented in this encounter Care Teams Feed Grinder Relationship Specialty Start Date End Date Elsewhere, Pcp PCP - General Internal Medicine 12/19/22 documented as of this encounter
--- OUTSIDE RECORDS SUMMARY | 2024-04-22 12:16 | XMS_ITS | Encounter Summary ---
Author Organization [facility] Address [address] [place] [address] Care Team Providers Care Wire Loop Machine Operator Name Role Phone Elsewhere, Pcp Primary Care Provider Unavailabl e Encounter Details Date Type Department Care Team (Latest Contact Info) Description 04/08/2024 2:53 PM CDT - 04/08/2024 11:59 PM CDT Hospital Encounter Department of Cardiovascular Diseases in [place], [place] [address] [place] [address] Stalin Wolf M.D. [address] [place] [phone] Discharge Disposition: Home or Self Care Social History Tobacco Use Types Packs/Day Years Used Date Smoking Tobacco: Never Passive Smoke Exposure: Never Smokeless Tobacco: Never Comments:Minimal as teen Alcohol Use Standard Drinks/Week Comments Yes 7 (1 standard drink = 0.6 oz pur e alcohol) [facility] Utilities Answer Date Recorded In the past 12 months has e electric, gas, oil, or water [employer] threatened to shut off services in your [...] often do you attend chur ch or religion services? 1 to 4 times per year 08/13/2022 Do you belong to any clubs o r organizations such as yarsani groups, unions, fraternal or athletic [...] and heating? Not hard at all 08/13/2022 [facility] [place] of Occupat ional Health - Occupational Stress [...] today? I have a [facility] place to live 09/11/2023 Education Answer [...] DAILY blood-glucose sensor (Dexcom G7 Sensor) device haydeeoL (Coreg) 12.5 mg tablet TAKE 1 TABLET(12.5 [...] Take 50 mg by mouth daily. 03/13/2021 isosorbide mononitrate (Imdur) 60 mg 24 hr tablet TAKE 1 TABLET(60 MG) BY MOUTH DAILY 90 tablet 02/25/2024 04/20/2024 documented as of this encounter Plan of Treatment Upcoming Encounters Date Type Department Care Team (Late st Contact Info) Description 06/27/2024 4:00 PM DOLPHIN RESEARCHER Telemedicine Division of Nephrology and Hypertension in [place], [place] [address] [place] [address] Elizabeth Frost M.D. [address] [place] [address] documented as of this encounter Procedures Procedure Name Priority Date/Time Associated Diagnosis Comments INTERFACED REMOTE DEVICE CHECK Routine 04/08/2024 2:53 PM CDT documented in this encounter Results * CAR CARDIAC DEVICE INTERROGATION (04/08/2024 2:53 PM CDT) Date Time Interrogation Session [id number] [employer] LAB SYSTEM Type Interrogation Session Remote Scheduled [employer] LAB SYSTEM Implantable Pulse Generator Seismology Technical Officer [employer] LAB SYSTEM Implantable Pulse Generator Type Pacemaker [facility] Implantable Pulse Generator Model L331 [employer] LAB SYSTEM Implantable Pulse Generator Serial Number [id number] [employer] LAB SYSTEM Implantable Pulse Generator Implant Date 20211015 [employer] LAB SYSTEM Battery Remaining Percentage 100.00 % [employer] LAB SYSTEM Battery Remaining Longevity 144.0 mo [employer] LAB SYSTEM Battery Status Beginning of Service [employer] LAB SYSTEM Kali Statistic RA Percent Paced 94.00 [employer] LAB SYSTEM Kali Statistic RV Percent Paced 1.00 [employer] LAB SYSTEM Atrial Tachy Statistic AT/AF [place] Percent 0.00 [employer] LAB SYSTEM Lead Channel Setting Sensing Sensitivity 0.25 [employer] LAB SYSTEM Lead Channel Impedance Value 702 [employer] LAB SYSTEM Lead Channel Pacing Threshold Amplitude 0.500 [employer] LAB SYSTEM Lead Channel Pacing Threshold Pulse Width 0.4 [employer] LAB SYSTEM Lead Channel Measurements Date and Time 2024-04-06 [facility] Lead Channel Setting Pacing Amplitude 2.000 [employer] LAB SYSTEM Lead Channel Setting Pacing Pulse Width 0.4 [employer] LAB SYSTEM Lead Channel Sensing Intrinsic Amplitude 3.300 [employer] LAB SYSTEM Lead Channel Setting Sensing Sensitivity 0.60 [facility] Lead Channel Impedance Value 657 [facility] Lead Channel Pacing Threshold Amplitude 1.600 [facility] Lead Channel Pacing Threshold Pulse Width 0.4 [facility] Lead Channel Measurements Date and [...] SYSTEM Lead Channel Setting Pacing Polarity Bipolar [facility] LAB SYSTEM Lead Channel Setting Pacing Polarity Bipolar [facility] SYSTEM Lead Channel Pacing Threshold Polarity Bipolar [facility] LAB SYSTEM Lead Channel Pacing Threshold Polarity Bipolar [facility] LAB SYSTEM Zone Setting Type Category VT [facility] Murj Rate 1 160 [facility] ON LAB SYSTEM Zone Setting Status Monitor [facility] Murj Zone ID 1 [facility]ON LAB SYSTEM Implantable Lead Seismology Technical Officer [employer] [facility] LAB SYSTEM Implantable Lead Model 7840 Ingevity + MRI [facility] Implantable Lead Location Right Atrium [facility] Implantable Lead Connection Status Connected [facility] Implantable Lead Serial Number [id number] [facility] Implantable Lead Implant Date [id number] [facility] Implantable Lead Seismology Technical Officer [employer] [facility] SYSTEM Implantable Lead Model 7841 Ingevity + MRI [facility] Implantable Lead Location Right Ventricle [facility] Implantable Lead Connection Status Connected [facility] Implantable Lead Serial Number [id number] [facility] Implantable Lead Implant Date [...] Wolf M.D. CV IMPLANTABLE CARDI AC DEVICE documented in this encounter Visit Diagnoses Not on filedocumented in this encounter Care Teams Wire Loop Machine Operator Relationship Specialty Start Date End Date Elsewhere, Pcp PCP - General Internal Medicine 12/19/22 documented as of this encounter
--- OUTSIDE RECORDS SUMMARY | 2024-04-22 12:16 | XMS_ITS | Encounter Summary ---
Author Organization [facility] Address [address] [place] [address] Care Team Providers Care Real Estate Financial Analyst Name Role Phone Elsewhere, Pcp Primary Care Provider Unavailabl e Encounter Details Date Type Department Care Team (Latest Contact Info) Description 03/07/2024 1:30 PM CDT - 03/07/2024 11:59 PM CDT Hospital Encounter Department of Laboratory Medicine and Pathology, [facility] in [place], [place] [address] [place] [address] Elizabeth Frost M.D. [address] [place] [phone] Chronic Kidney Disease (CKD), Stage 3b Glomerular Filtration Rate (GFR) 30 To 44 (HCC); Hypertension Essential Primary Discharge Disposition: Home or Self Care Social History Tobacco Use Types Packs/Day Years Used Date Smoking Tobacco: Never Passive Smoke Exposure: Never Smokeless Tobacco: Never Comments:Minimal as teen Alcohol Use Standard Drinks/Week Comments Yes 7 (1 standard drink = 0.6 oz pur e alcohol) [facility] Utilities Answer Date Recorded In the past 12 months has e [employer], gas, oil, or water company threatened to [...] How often do you attend chur or confucianist services? 1 to 4 times per year 08/13/2022 Do you belong to any clubs o r organizations such as spiritism groups, unions, fraternal or athletic groups, or [...] and heating? Not hard at all 08/13/2022 [facility] [place] of Occupat ional Health - Occupational Stress [...] your living situation today? I have a [facility] place to live 09/11/2023 Education Answer [...] st Contact Info) Description 06/27/2024 4:00 PM AUDIO VISUAL ENGINEER Telemedicine Division of Nephrology and Hypertension in [place], [place] [address] [place] [address] Elizabeth Frost M.D. [address] [place] [address] documented as of this encounter Procedures Procedure Name Priority Date/Time Associated Diagnosis Comments ALBUMIN, RANDOM, U Routine 03/07/2024 1: 46 PM CDT Chronic Kidney Disease (CKD), Stage 3b Glomerular Filtration Rate (GFR) 30 To 44 (HCC) Hypertension Essential Primary PROTEIN/CREATININE RATIO, RANDOM, URINE Routine 03/07/2024 1:46 PM CDT Chronic Kidney Disease (CKD), Stage 3b Glomerular Filtration Rate (GFR) 30 To 44 (HCC) Hypertension Essential Primary documented in this encounter Results * Albumin, Random, Urine (03/07/2024 1:46 PM CDT) Albumin, Random, U 5.4 mg/L 2023 3:30 PM CDT DTL Comment: ----ADDITIONAL INFORMATION---- This test has been modified from the sales promotion manager's instructions. Its performance characteristics were determined by [facility] in a manner consistent with CLIA requirements. This test has not been cleared or approved by the U.S. Food and Drug Administration. Creatinine 37 mg/dL 03/07/2024 2:53 PM CDT DTL Albumin/Creatinine Ratio 15 <17 mg/g 03/07/2024 3:30 PM CDT DTL Urine (Urine, Midstream) 03/07/2024 1:46 PM CDT 03/07/2024 2:14 PM CDT Elizabeth Frost M.D. LAB URINE ORDERABLES Performing Organization Address City/[facility]/[place] [address] * Protein/Creatinine Ratio, Random, Urine (03/07/2024 1:46 [...] M.D. LAB URINE ORDERABLES Performing Organization Address City/[facility]/ZIP Co de Phone Number [address] [place] [address] documented in this encounter Visit Diagnoses Diagnosis Chronic Kidney Disease (CKD), Stage 3b Glomerular Filtration Rate (GFR) 30 To 44 (HCC) Hypertension Essential Primary documented in this encounter Care Teams Real Estate Financial Analyst Relationship Specialty Start Date End Date Elsewhere, Pcp PCP - General Internal Medicine 12/19/22 documented as of this encounter
--- OUTSIDE RECORDS SUMMARY | 2024-04-22 12:16 | XMS_ITS | Encounter Summary ---
Author Organization [facility] Address [address] [place] [address] Care Team Providers Care Outcome Analyst Name Role Phone Elsewhere, Pcp Primary Care Provider Unavailabl e Reason for Visit * Reason Comments Med Refill Encounter Details Date Type Department Care Team (Late st Contact Info) Description 03/15/2024 Refill Division of Nephrology and Hypertension in [place], [place] [address] [place] [phone] Elizabeth Frost M.D. [address] [place] [phone] Med Refill Social History Tobacco Use Types Packs/Day Years Used Date Smoking Tobacco: Never Passive Smoke Exposure: Never Smokeless Tobacco: Never Comments:Minimal as teen Alcohol Use Standard Drinks/Week Comments Yes 7 (1 standard drink = 0.6 oz pur e alcohol) [facility] Utilities Answer Date Recorded In the past 12 months has e [employer], gas, oil, or water [employer] threatened to shut off services in your [...] often do you attend chur ch or amish services? 1 to 4 times per year 08/13/2022 Do you belong to any clubs o r organizations such as mandaeism groups, unions, fraternal or athletic groups, or [...] and heating? Not hard at all 08/13/2022 [facility] of Occupat ional Health - Occupational [...] your living situation today? I have a [facility] place to live 09/11/2023 Education Answer Date [...] st Contact Info) Description 06/27/2024 4:00 PM LIFE SKILLS CONSULTANT Telemedicine Division of Nephrology and Hypertension in [place], [place] [address] [place] [address] Elizabeth Frost M.D. [address] [place] [address] documented as of this encounter Visit Diagnoses Not on filedocumented in this encounter Care Teams Outcome Analyst Relationship Specialty Start Date End Date Elsewhere, Pcp PCP - General Internal Medicine 12/19/22 documented as of this encounter
--- OUTSIDE RECORDS SUMMARY | 2024-04-22 12:16 | XMS_ITS | Encounter Summary ---
Author Organization [facility] Address [address] [place] [address] Care Team Providers Care Sports Marketing Internship Name Role Phone Elsewhere, Pcp Primary Care Provider Unavailabl e Reason for Referral * Outpatient (Routine) - Authorized Specialty Diagnoses / Procedures Referred By David bhat Referred To Contact Nephrology and Hypertension Elizabeth Frost M.D. [address] [place] [phone] [facility] Referral ID Status Reason Start Date Expiration Date V isits Requested Visits Authorized [id number] Authorized 03/08/2024 09/07/2025 1 1 Reason for Visit * Reason Comments Hypertension Chronic Kidney Disease Consult * Appointment Request (Routine) - Closed Specialty Diagnoses / Procedures Referred By David bhat Referred To Contact Nephrology and Hypertension Ozzy Carbone M.D. 200 [place] [address] Referral ID Status Reason Start Date Expiration Date Visits Re quested Visits Authorized [id number] Closed 09/15/2023 09/14/2024 1 1 Encounter Details Date Type Department Care Team (Latest Contact Info) Description 03/08/2024 3:00 PM CDT Office Visit Division of Nephrology and Hypertension in [place], [place] [address] [place] [phone] Elizabeth Frost M.D. [address] [place] [phone] Hypertension Benign Renovascular (Primary Dx); Chronic Kidney Disease (CKD), Stage 3a Glomerular Filtration Rate (GFR) 45 To 59 (HCC); Fluid And Electrolyte Disorder; Diabetes Mellitus Type 2 With Diabetic Chronic Kidney Disease (HCC) Social History Tobacco Use Types Packs/Day Years Used Date Smoking Tobacco: Never Passive Smoke Exposure: Never Smokeless Tobacco: Never Tobacco Cessation:Counseling Given: Not Answered Comments:Minimal as teen Alcohol Use Standard Drinks/Week Comments Yes 7 (1 standard drink = 0.6 oz pur e alcohol) [facility] Utilities Answer Date Recorded In the past 12 months has e [employer], gas, oil, or water [employer] threatened to shut off services in your [...] often do you attend chur ch or congregational services? 1 to 4 times per year 08/13/2022 Do you belong to any clubs o r organizations such as congregational groups, unions, fraternal or athletic groups, or [...] and heating? Not hard at all 08/13/2022 [facility] of Occupat ional Health - Occupational [...] your living situation today? I have a [facility] place to live 09/11/2023 Education Answer Date [...] Mass Index 28.32 03/08/2024 2:48 PM CDT documented in this encounter Patient Instructions * Patient Instructions* Elizabeth Frost M.D. - 03/08/2024 3:00 PM CDT Thank you for seeing us in the [facility]. You were seen today for abnormal kidney function that is due to many years of diabetes and high blood pressure. Your kidney function is currently improved. In terms of your medications, I recommend stopping hydralazine altogether and starting Farxiga 5 mgdaily to help protect your kidneys from diabetes. Continue to monitor your blood pressure at home and send us periodic readings via the [facility]. Our goal blood pressure for you is 110-130/60-80. Avoid all non-steroidal anti-inflammatory drugs (NSAIDs), including ibuprofen, naproxen, ketorolac,diclofenac, Celebrex, Motrin, Advil, Aleve, Toradol. Tylenol and Excedrin are ok. Return to see me in 3 months via video with labs a few days prior. documented in this encounter Progress Notes * Elizabeth Frost M.D. - 03/08/2024 3:00 PM CDT Nikita Anderson is a 73 y.o. male with diabetes, CAD s/p CABG, and CARLITOS on CPAP presenting for follow-up of chronic kidney disease and hypertension. Renal History: Patient was first seen in Nephrology clinic in 12/2021. He was previously followed by Dr. Carbone. At the time, patient reported his primary goal was to get his blood pressure under control. He had been on a variety of blood pressure medications which had not controlled his blood pressure adequately. He had been off and on clonidine. He had not had a stroke. He used his CPAP machine for his CARLITOS. He has type 2 diabetes mellitus on insulin. He had symptoms suggestive of peripheral diabetic neuropathy and had laser treatments for diabetic retinopathy. He has a family history of hypertension. In terms of renal function, serum creatinine has been mostly 1.3-1.5 mg/dL since 2022 though he did have an episode of acute kidney injury with serum creatinine to 1.71 mg/dL in 12/2021 and to 1.95 mg/dL in 05/2022. Urinalysis is negative for protein or blood. Last renal imaging in 12/2021 showed mildly elevated velocities in the left proximal renal artery suggests a mild to moderate stenosis. Otherwise, the renal artery velocities are normal with no high-grade stenosis. Interim History: Patient was last seen on 09/14/2023. Since last visit, patient has been seen by Cardiology and PCP. He reports that he is still getting lightheaded and dizzy. He reports that since his CABG four years ago, his BP has been labile for some time. His BP at home has been 110-130s/50-60s. He has lost about 35 pounds and is currently being evaluated for possible thyroid issues. PAST MEDICAL/SURGICAL HISTORY, FAMILY HISTORY AND SOCIAL HISTORY: were reviewed and updated as appropriate. REVIEW OF SYSTEMS: denies fevers/chills, recent changes in mood, SOB, chest pain, nausea/vomiting, change in appetite, metallic taste in mouth, gross hematuria. All other systems were reviewed and were otherwise negative. Allergies Allergen Reactions Atorvastatin Other (see comments) Congestion Epinephrine Other (see comments) and Palpitations MEDICATIONS: Current Medications: acetaminophen (TYLENOL) 500 mg tablet, Take 1,000 mg by mouth every 6 (six) hours as needed for pain. amLODIPine (NORVASC) 10 mg tablet, Take 1 tablet (10 mg total) by mouth daily. aspirin 81 mg capsule, 81 mg daily. Currently on hold due to recent eye surgery;may restart tomorrow blood sugar diagnostic (Accu-Chek Sheri Plus test strp) strips, Accu-Chek Softclix Lancets USE TO TEST FOUR TIMES DAILY blood-glucose sensor ([employer] G7 Sensor) device, carvediloL (Coreg) 12.5 mg tablet, TAKE 1 TABLET(12.5 MG) BY MOUTH TWICE DAILY WITH MEALS chlorthalidone (HYGROTON) 50 mg tablet, Take 1 tablet (50 mg total) by mouth daily. cloNIDine (CATAPRES-TTS) 0.2 mg/24 hr patch, Place 1 patch on the skin once a week. (Patient not taking: Reported on 03/07/2024) co-enzyme Q-10 30 mg capsule, Take 30 mg by mouth daily. cyanocobalamin (VITAMIN B12) 1,000 mcg SL tablet, cyanocobalamin (vit B-12) 1,[address] 1 TABLET UNDER THE TONGUE ONCE DAILY ferrous gluconate (FERGON) 324 mg (38 mg iron) tablet, Take 324 mg by mouth daily with breakfast. ferrous sulfate 324 mg (65 mg iron) DR tablet, Take 140 mg of iron by mouth. 140mg fluoride, sodium, (PreviDent) 1.1 % gel dental gel, PreviDent 5000 Booster Plus 1.1 % dental paste USE TO BRUSH TEETH TWICE DAILY gabapentin (NEURONTIN) 300 mg capsule, 300 mg 2 (two) times a day. glucagon (GlucaGen) 1 mg/mL injection, Glucagon (HCl) Emergency Kit 1 mg solution for injection hydrALAZINE (APRESOLINE) 25 mg tablet, Take 1 tablet (25 mg total) by mouth every 8 (eight) hours. Along with Hydralazine 50 mg TID, for total daily dose of 75mg TID. (Patient taking differently: Take 25 mg by mouth as needed. Along with Hydralazine 50 mg as needed) hydrALAZINE (APRESOLINE) 50 mg tablet, Take 1 tablet (50 mg total) by mouth every 8 (eight) hours. Along with Hydralazine 25mg TID, for total daily dose of 75mg TID. (Patient taking differently: Take50 mg by mouth daily.) isosorbide mononitrate (Imdur) 60 mg 24 hr tablet, TAKE 1 TABLET(60 MG) BY MOUTH DAILY lisinopriL (PRINIVIL,ZESTRIL) 10 mg tablet, Take 1 tablet (10 mg total) by mouth daily. melatonin 5 mg capsule, Take 1 capsule by mouth at bedtime. melatonin/herbal no.233 (SLEEP SUPPORT, MELATONIN-HERB, ORAL), Take 1 capsule by mouth daily. 10 mgof CBN, 10 mg of CBD, 5 mg Melatonin multivitamin tablet, Take 1 tablet by mouth daily. NovoLOG U-100 Insulin aspart 100 unit/mL injection, Inject under the skin as needed. polyethylene glycol 400 (BLINK TEARS OPHT), Administer 1 drop into affected eye(s) daily. psyllium (METAMUCIL) powder, Take 1 packet by mouth daily. rosuvastatin (CRESTOR) 40 mg tablet, TAKE 1 TABLET(40 MG) BY MOUTH EVERY EVENING sertraline (ZOLOFT) 50 mg tablet, Take 50 mg by mouth daily. PHYSICAL EXAM: Vitals: 03/08/24 1448 03/08/24 1541 BP: 124/60 Pulse: 60 Temp: 36 ??C Weight: 90.4 kg Height: 178.6 cm Wt Readings from Last 3 Encounters: 03/08/24 90.4 kg 12/07/23 92 kg 09/14/23 9.6 kg General Appearance: Alert, no acute distress Head: Normocephalic, atraumatic Eyes: Conjunctiva/corneas clear ENMT: Normal external nose and ears Neck: Supple Lungs: Normal inspiratory effort Heart: No jugular venous distension GI: Non-distended MSK: No lower extremity edema Derm: No obvious rash or jaundice Neuro: Speech clear; grossly non-focal Psych: Normal affect Hematologic: No excessive bruising noted LABS/STUDIES: I have personally reviewed all pertinent laboratories [facility], including the following: Recent Labs 03/07/24 1342 02/26/24 1045 11/14/23 1239 07/26/23 1105 06/25/23 0000 03/24/23 1122 HGB 9.9 L 10.3 L 10.3 L < > -- -- NA 141 138 139 < > 133 A 143 KSERUM 5.0 5.2 H 4.3 < > -- 5.2 BICARB 24 22 23 < > -- 21 L BUN 49 H 60 H 63 H < > 48 A 57 H CREATININE 1.30 1.46 H 1.74 H < > 1.55 A 1.52 H EGFR 58 L -- -- -- 47 48 L EGFRCYSTATNC 36 L -- -- -- -- -- CALCIUM 9.5 9.1 9.2 < > 8.7 9.1 LABPHOS 3.6 -- -- -- -- 3.4 < > = values in this interval not displayed. No results for input(s): LABIRON, FERRITIN in the last 8760 hours. Lab Results Component Value Date HEPCAB Non-Reactive 08/12/2018 No results for input(s): UADMSRC3, UADMAPP4, CLARITYU, COLORU, OSMOLALITYU, PHURINE, GLUCOSEU, [id number], BLOODUR, MICROSCOPIC, RBCU, DYSMORHRBCU, WBCU, GRAMSTNCONFU, NITRITEU, LEUKOCYTESU, BILIRUBINU, UROBILINOGEN, SPECGRAV in the last 8760 hours. Recent Labs 03/07/24 1346 PROTCREATU 0.11 Recent Labs 03/07/24 1346 08/14/22 1619 05/21/22 1330 ALBCREARATIO 15 11 67 H ASSESSMENT AND PLAN: Nikita Anderson is a 73 y.o. male with diabetes, CAD s/p CABG, and CARLITOS on CPAP seen today for the following: #1 Chronic Kidney Disease (CKD), Stage 3a Glomerular Filtration Rate (GFR) 45 To 59 (HCC) Patient with non-proteinuric chronic kidney disease with baseline serum creatinine 1.3-1.5 mg/dL that is overall stable. Etiology is most likely multifactorial from diabetic nephropathy and arteriosclerosis. We discussed with patient that the primary goal in slowing and preventing progression of CKD involves adequate blood pressure with RAAS blockade in effort to suppress proteinuria, glucose control with SGLT2i if possible, and weight control, as well as avoidance of nephrotoxins, like NSAIDs and iodinated contrast. All the recommended vaccinations are also important in preventing infectionsthat may exacerbate CKD. Finally, a statin is indicated for management of cardiovascular risk factors, which patient is on. At this time, patient's risk of progression to ESKD is currently 0.1% at 2 years and 0.2% at 5 years based on the KFRE (Tangri FRAN 2016). Referral to kidney transplant is notcurrently indicated. #2 Hypertension Benign Renovascular Goal blood pressure in CKD is 110-130/60-80 mmHg. Patient reports readings at home are labile and he has had a longstanding history of trying various medications with variable success. He has no edema on exam. Patient is currently on amlodipine 5 mg daily, carvedilol 12.5 mg BID, chlorthalidone 50 mg daily, Imdur 60 mg daily, lisinopril 10 mg daily. We will aim to consolidate his medications and start by stopping hydralazine and having him start Farxiga 5 mg daily. We have asked patient to monitor BP at home and report readings to us via the [facility]. Our eventual goal will be to maximize doses of ACEi and BB and stop CCB and Imdur as able. We are glad he is off clonidine and if h is BP were to become uncontrolled, we agree with Cardiology's recommendation to repeat renal arterydopplers. #3 Fluid And Electrolyte Disorder Goal serum bicarbonate in CKD is >21 mmol/L. Patient currently at goal. Potassium is borderline elevated. Renal diet was discussed. #4 Diabetes Mellitus Type 2 With Diabetic Chronic Kidney Disease (HCC) Patient with known diabetic retinopathy and possible neuropathy. We are starting him on SGLT2i for renal protection. Follow-up: return in 3 months with labs prior. Elizabeth Frost M.D. Head [employer] Financial Report Service Sales Agent Nephrology and Hypertension [facility] documented in this encounter Plan of Treatment Upcoming Encounters Date Type Department Care Team (Late st Contact Info) Description 06/27/2024 4:00 PM MINER OPERATOR Telemedicine Division of Nephrology and Hypertension in [place], [place] [address] [place] [phone] Elizabeth Frost M.D. [address] [place] [address] Scheduled Referrals Name Type Priority Associated Diagnoses Order Schedule Nephrology and Hypertension office visit (clinic) Outpatient Referral Routine Expected: 06/08/2024, Expires: 06/08/2025 documented as of this encounter Visit Diagnoses Diagnosis Hypertension Benign Renovascular- Primary Chronic Kidney Disease (CKD), Stage 3a Glomerular Filtration Rate (GFR) 45 To 59 (HCC) Fluid And Electrolyte Disorder Diabetes Mellitus Type 2 With Diabetic Chronic Kidney Disease (HCC) documented in this encounter Care Teams Sports Marketing Internship Relationship Specialty Start Date End Date Elsewhere, Pcp PCP - General Internal Medicine 12/19/22 documented as of this encounter
--- OUTSIDE RECORDS SUMMARY | 2024-04-22 12:16 | XMS_ITS ---
Author Organization [facility] Address [address] [place] [address] Care Team Providers Care Dialysis Patient Care Technician Name Role Phone Unavailable Unavailable Unavailable Surgery Details Not on file Complications Check Surgery Details section. Procedure Estimated Blood Loss Check Surgery Details section. Procedure Findings Check Surgery Details section. Procedure Specimens Taken Check Surgery Details section.
--- OUTSIDE RECORDS SUMMARY | 2024-04-22 12:16 | XMS_ITS | Encounter Summary ---
Author Organization [facility] Address [address] [place] [phone] Care Team Providers Care Analyst Name Role Phone Elsewhere, Pcp Primary Care Provider Unavailabl e Reason for Visit * Reason Comments Med Refill Encounter Details Date Type Department Care Team (Late st Contact Info) Description 02/24/2024 Refill Division of Nephrology and Hypertension in [place], [place] [address] [place] [phone] Alvaro Duong Jr., D.O. [address] [place] [phone] Med Refill Social History Tobacco Use Types Packs/Day Years Used Date Smoking Tobacco: Never Passive Smoke Exposure: Never Smokeless Tobacco: Never Alcohol Use Standard Drinks/Week Comments Yes 5 (1 standard drink = 0.6 oz pur e alcohol) [facility] Utilities Answer Date Recorded In the past 12 months has e [employer], gas, oil, or water [email or web address] threatened to shut off services in your [...] How often do you attend chur or alevism services? 1 to 4 times per year 08/13/2022 Do you belong to any clubs o r organizations such as lutheran groups, unions, fraternal or athletic groups, or [...] and heating? Not hard at all 08/13/2022 [facility] of Occupat ional Health - Occupational Stress [...] your living situation today? I have a [facility] place to live 09/11/2023 Education Answer Date [...] st Contact Info) Description 06/27/2024 4:00 PM POWER CHECKER Telemedicine Division of Nephrology and Hypertension in [place], [place] [address] [place] [phone] Elizabeth Frost M.D. [address] [place] [phone] documented as of this encounter Visit Diagnoses Not on filedocumented in this encounter Care Teams Analyst Relationship Specialty Start Date End Date Elsewhere, Pcp PCP - General Internal Medicine 12/19/22 documented as of this encounter
--- OUTSIDE RECORDS SUMMARY | 2024-04-22 12:16 | XMS_ITS | Encounter Summary ---
Author Organization [facility] Address [address] [place] [address] Care Team Providers Care Lead Radiation Therapist Name Role Phone Elsewhere, Pcp Primary Care Provider Unavailabl e Encounter Details Date Type Department Care Team (Latest Contact Info) Description 04/20/2024 10:05 AM CDT - 04/20/2024 11:59 PM CDT Hospital Encounter Department of Laboratory Medicine and Pathology, [facility] in [place], [place] [address] [place] [address] Elizabeth Frost M.D. [address] [place] [phone] Chronic Kidney Disease (CKD), Stage 3a Glomerular [...] drink = 0.6 oz pur e alcohol) [facility] Utilities Answer Date Recorded In the past 12 months has e [employer], gas, oil, or water [employer] threatened to shut off services in your [...] often do you attend chur ch or taoism services? 1 to 4 times per year 08/13/2022 Do you belong to any clubs o r organizations such as yarsanism groups, unions, fraternal or athletic groups, or [...] and heating? Not hard at all 08/13/2022 [facility] of Occupat ional Health - Occupational Stress [...] your living situation today? I have a [facility] place to live 09/11/2023 Education Answer [...] TO TEST FOUR TIMES DAILY blood-glucose sensor (SeedInvest G7 Sensor) device carvediloL (Coreg) 12.5 mg [...] st Contact Info) Description 06/27/2024 4:00 PM FIELD STAFF Telemedicine Division of Nephrology and Hypertension in [place], [place] [address] [place] [address] Elizabeth Frost M.D. [address] [place] [address] documented as of this encounter Procedures Procedure Name Priority Date/Time Associated Diagnosis Comments BASIC METABOLIC PANEL, S/P Routine 04/20/2024 10:37 AM CDT Chronic Kidney Disease (CKD), Stage 3a Glomerular Filtration Rate (GFR) 45 To 59 (HCC) Diabetes Mellitus Type 2 With Diabetic Chronic Kidney Disease (HCC) documented in this encounter Results * (ABNORMAL) Basic Metabolic Panel (04/20/2024 10:37 [...] CDT Elizabeth Frost M.D. LAB BLOOD ADD-ON [facility] [address] [place] [address], [facility] DTL [facility] [address] [place] [address] documented in this encounter Visit Diagnoses Diagnosis Chronic Kidney Disease (CKD), Stage 3a Glomerular Filtration Rate (GFR) 45 To 59 (HCC) Diabetes Mellitus Type 2 With Diabetic Chronic Kidney Disease (HCC) documented in this encounter Care Teams Lead Radiation Therapist Relationship Specialty Start Date End Date Elsewhere, Pcp PCP - General Internal Medicine 12/19/22 documented as of this encounter
--- OUTSIDE RECORDS SUMMARY | 2024-04-22 12:17 | XMS_ITS | Encounter Summary ---
Author Organization [facility] Address [address] [place] [address] Care Team Providers Care Shelving Supervisor Name Role Phone Elsewhere, Pcp Primary Care Provider Unavailabl e Reason for Visit * Reason Comments Med Refill Encounter Details Date Type Department Care Team (Late st Contact Info) Description 01/07/2024 Refill Department of Cardiovascular Medicine in [place], [place] [address] [place] [phone] Pantera Valero M.D. [address] [place] [phone] Med Refill Social History Tobacco Use Types Packs/Day Years Used Date Smoking Tobacco: Never Passive Smoke Exposure: Never Smokeless Tobacco: Never Alcohol Use Standard Drinks/Week Comments Yes 5 (1 standard drink = 0.6 oz pur e alcohol) [facility] Utilities Answer Date Recorded In the past 12 months has e [employer], gas, oil, or water [employer] threatened to shut off services in your [...] How often do you attend chur or scientologist services? 1 to 4 times per year 08/13/2022 Do you belong to any clubs o r organizations such as anabaptism groups, unions, fraternal or athletic [...] and heating? Not hard at all 08/13/2022 [facility] of Occupat ional Health - Occupational [...] your living situation today? I have a [facility] place to live 09/11/2023 Education [...] st Contact Info) Description 06/27/2024 4:00 PM AUTO CUSTOMIZE PAINTER Telemedicine Division of Nephrology and Hypertension in [place], [place] [address] [place] [address] Elizabeth Frost M.D. [address] [place] [address] documented as of this encounter Visit Diagnoses Not on filedocumented in this encounter Care Teams Shelving Supervisor Relationship Specialty Start Date End Date Elsewhere, Pcp PCP - General Internal Medicine 12/19/22 documented as of this encounter
--- OUTSIDE RECORDS SUMMARY | 2024-04-22 12:17 | XMS_ITS | Encounter Summary ---
Author Organization [place] Address [address] [facility] [address] Care Team Providers Care Review Nurse Name Role Phone Anatoliy Jackson MD Primary Care Provider Heath More MD Unavailable [phone] Peter Gipson MD Unavailable [phone] Peter Mcmullen MD Unavailable [phone] Fidencio Solis MD Unavailable Hallie Maldonado APRN PRESALES CONSULTANT Unavailable [phone] Giuliana Gomez DIRECTOR OF VOLUNTEER SERVICES PRESALES CONSULTANT Unavailable [phone] Fidencio Solis MD Unavailable Giuliana Gomez APRN PRESALES CONSULTANT Unavailable [phone] Giuliana Gomez APRN PRESALES CONSULTANT Unavailable [phone] Fidencio Solis MD Unavailable Fidencio Solis MD Unavailable Encounter Details Date Type Department Care Team (Late st Contact Info) Description 01/18/2021 [facility] Heart [facility] [address] [facility] [address] [place] [address] Fidencio Solis MD [address], [facility] [address] [place] [address] Social History Tobacco Use Types Packs/Day Years Used Date Smoking Tobacco: Never Smokeless Tobacco: Never Alcohol Use Standard Drinks/Week Comments Yes 0 (1 standard drink = 0.6 oz pure alcohol) beer and wine, every couple days PHQ-2 Answer Date Recorded PHQ-2 Score 1 10/23/2020 Sex and Gender Information Value Date Recorded Sex Assigned at Male 03/12/2021 12:11 PM CDT 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 No / Unsure 01/02/2021 2:52 PM CDT documented as of this encounter Plan of Treatment Not on file documented as of this encounter Visit Diagnoses Not on filedocumented in this encounter Care Teams Review Nurse Relationship Specialty Start Date End Date Anatoliy Jackson MD PCP - General 05/14/12 Heath More MD [facility]OCRINE CLINIC [facility] [address] [facility] [address] [place] [phone] PCP - Internal Medicine INTERNAL MEDICINE - ENDOCRINOLOGY, DIABETES & METABOLISM 01/06/14 Peter Gipson MD [facility] [address] [place] [address] PCP - Urology 04/02/15 Peter Mcmullen MD [address] [facility] [address] [place] [address] Assigned Musculoskeletal Provider 06/01/20 06/20/22 Fidencio Solis MD [address] [facility] [address] [place] [address] Assigned Heart and Vascular Provider 12/16/20 02/21/21 Hallie Maldonado APRN PRESALES CONSULTANT [address] [place] [address] Assigned Heart and Vascular Provider 02/22/21 05/18/21 Giuliana Gomez APRN PRESALES CONSULTANT [address] [place] [address] Assigned Heart and Vascular Provider 05/19/21 06/15/21 Fidencio Solis MD [address] [place] [address] [place] [address] Assigned Heart and Vascular Provider 06/16/21 06/29/21 Giuliana Gomez APRN PRESALES CONSULTANT [address] [place] [address] Assigned Heart and Vascular Provider 06/30/21 07/18/22 Giuliana Gomez APRN PRESALES CONSULTANT [address] [place] [address] Nurse Practitioner Cardiovascular Disease 08/21/21 Fidencio Solis MD [address] [place] [address] [place] [address] Cardiovascular Disease 08/21/21 Fidencio Solis MD [address] [place] [address] [place] [address] Assigned Heart and Vascular Provider 07/19/22 04/17/23 documented as of this encounter
--- OUTSIDE RECORDS SUMMARY | 2024-04-22 12:17 | XMS_ITS | Encounter Summary ---
Author Organization [place] Address [address] [facility] [place] [address] Care Team Providers Care Manager Internet Retails Sales Name Role Phone Anatoliy Jackson MD Primary Care Provider [phone] Heath More MD Unavailable [phone] Peter Gipson MD Unavailable [phone] Peter Aguiar MD Unavailable Unavail [facility] Peter Mcmullen MD Unavailable [phone] Fidencio Solis MD Unavailable Hallie Maldonado APRN DRIVER/GUIDE Unavailable [phone] Giuliana Gomez APRN DRIVER/GUIDE Unavailable [phone] Fidencio Solis MD Unavailable Giuliana Gomez APRN DRIVER/GUIDE Unavailable [phone] Giuliana Gomez APRN DRIVER/GUIDE Unavailable [phone] Fidencio Solis MD Unavailable Fidencio Solis MD Unavailable Encounter Details Date Type Department Care Team (Late st Contact Info) Description 04/18/2015 Evaluation [facility] Heart [facility] [id number] [place] [address] [address] [place] [address] Nadia Pisano, NEW CAR MAKE READY WORKER DRIVER/GUIDE [address] [place] [address] Social History Tobacco Use Types Packs/Day Years Used Date Smoking Tobacco: Never Alcohol Use Standard Drinks/Week Comments Yes 0 (1 standard drink = 0.6 oz pure alcohol) beer and wine, every couple days Sex and Gender Information Value Date Recorded Sex Assigned at Male 03/12/2021 12:11 PM CDT 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 Sexual Orientation Not on file documented as of this encounter Plan of Treatment Not on file documented as of this encounter Visit Diagnoses Not on filedocumented in this encounter Care Teams Manager Internet Retails Sales Relationship Specialty Start Date End Date Anatoliy Jackson MD PCP - General 05/14/12 Heath More MD [facility] CL[facility]IC [facility] [address] [place] [address] [place] [phone] PCP - Internal Medicine INTERNAL MEDICINE - ENDOCRINOLOGY, DIABETES & METABOLISM 01/06/14 Peter Gipson MD [facility] [address] [place] [address] PCP - Urology 04/02/15 Peter Aguiar MD Assigned Heart and Vascular Provider 06/01/20 12/15/20 Peter Mcmullen MD [address] [facility] [address] [place], [place] [address] Assigned Musculoskeletal Provider 06/01/20 06/20/22 Fidencio Solis MD [address] [facility] [address] [place] [address] Assigned Heart and Vascular Provider 12/16/20 02/21/21 Hallie Maldonado APRN DRIVER/GUIDE [address] [place] [address] Assigned Heart and Vascular Provider 02/22/21 05/18/21 Giuliana Gomez APRN DRIVER/GUIDE [address] [place] [address] Assigned Heart and Vascular Provider 05/19/21 06/15/21 Fidencio Solis MD [address] [place] [address] [place] [address] Assigned Heart and Vascular Provider 06/16/21 06/29/21 Giuliana Gomez APRN DRIVER/GUIDE [address] [place] [address] Assigned Heart and Vascular Provider 06/30/21 07/18/22 Giuliana Gomez APRN DRIVER/GUIDE [address] [place] [address] Nurse Practitioner Cardiovascular Disease 08/21/21 Fidencio Solis MD [address] [place] [address] [place] [address] Cardiovascular Disease 08/21/21 Fidencio Solis MD [address] [place] [address] [place] [address] Assigned Heart and Vascular Provider 07/19/22 04/17/23 documented as of this encounter
--- OUTSIDE RECORDS SUMMARY | 2024-04-22 12:17 | XMS_ITS | Encounter Summary ---
Author Organization [place] Address [address] [place] [address]. [place] [address] Care Team Providers Care Credit Intern Name Role Phone Anatoliy Jackson MD Primary Care Provider Heath More MD Unavailable [phone] Peter Gipson MD Unavailable [facility] Unavailable Hallie Maldonado DELIVERY PROFESSIONAL POLICE SPECIALIST Unavailable Giuliana Gomez DELIVERY PROFESSIONAL POLICE SPECIALIST Unavailable Fidencio Solis MD Unavailable Giuliana Gomez APRN POLICE SPECIALIST Unavailable [phone] Giuliana Gomez APRN POLICE SPECIALIST Unavailable [phone] Fidencio Solis MD Unavailable Fidencio Solis MD Unavailable Encounter Details Date Type Department Care Team (Late st Contact Info) Description 05/02/2021 [facility] Care Coordination [address] [place] [address] Anatoliy Jackson MD [address] [place] [address] Social History Tobacco Use Types Packs/Day Years Used Date Smoking Tobacco: Former Cigarettes 0 04/19/1970 - 04/19/1972 Smokeless Tobacco: Never Alcohol Use Standard Drinks/Week Comments Yes 0 (1 standard drink = 0.6 oz pur e alcohol) beer and wine , 2 most days PHQ-2 Answer Date Recorded PHQ-2 Score 1 10/23/2020 Sex and Gender Information Value Date Recorded Sex Assigned at Male 03/12/2021 12:11 PM CDT 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 No / Unsure 05/02/2021 8:11 AM CDT documented as of this encounter Plan of Treatment Not on file documented as of this encounter Visit Diagnoses Not on filedocumented in this encounter Care Teams Credit Intern Relationship Specialty Start Date End Date Anatoliy Jackson MD PCP - General 05/14/12 Heath More MD [facility]INE CLINIC [facility] [address] [facility] [address] [place] [phone] PCP - Internal Medicine INTERNAL MEDICINE - ENDOCRINOLOGY, DIABETES & METABOLISM 01/06/14 Peter Gipson MD [facility] [address] [place] [address] [address] [place] [address] PCP - Urology 04/02/15 Peter Mcmullen MD [address] [facility] [address] [place], [place] [address] Assigned Musculoskeletal Provider 06/01/20 06/20/22 Hallie Maldonado APRN POLICE SPECIALIST [address] [place], [place] [address] Assigned Heart and Vascular Provider 02/22/21 05/18/21 Giuliana Gomez APRN POLICE SPECIALIST [address] [place] [address] Assigned Heart and Vascular Provider 05/19/21 06/15/21 Fidencio Solis MD [address] [place] [address] [place] [address] Assigned Heart and Vascular Provider 06/16/21 06/29/21 Giuliana Gomez APRN POLICE SPECIALIST [address] [place] [address] Assigned Heart and Vascular Provider 06/30/21 07/18/22 Giuliana Gomez APRN POLICE SPECIALIST [address] [place], [place] [address] Nurse Practitioner Cardiovascular Disease 08/21/21 Fidencio Solis MD [address] [place] [address] [place] [address] Cardiovascular Disease 08/21/21 Fidencio Solis MD [address] [place] [address] [place] [address] Assigned Heart and Vascular Provider 07/19/22 04/17/23 documented as of this encounter
--- OUTSIDE RECORDS SUMMARY | 2024-04-22 12:17 | XMS_ITS | Clinical Summary ---
Author Organization [place] Address [address] [facility] [place] [address] Care Team Providers Care Filter Press Tender Name Role Phone Anatoliy Jackson MD Primary Care Provider [phone] Heath More MD Unavailable Peter Gipson MD Unavailable [phone] Giuliana Gomez APRN MOLDING LINE ASSISTANT Unavailable [phone] Fidencio Solis MD Unavailable Allergies Active Allergy Reactions Criticality Noted Date Comments Atorvastatin Other (See Comments) 02/23/2015 Congestion Epinephrine Palpitations Low 07/13/2013 Medications Medication Sig Dispensed Refills Start Date End Date Status SYRINGE B-D MICRO FINE 1/2 CC SYRINGES as directed 100 prn 09/18/2004 Active ONE TOUCH ULTRA TEST STRPIndications:Typ e II or unspecified type diabetes mellitus without mention of complication, not stated as uncontrolled as directed 100 prn 06/22/2006 Active Turmeric 500 MG CAPS Take 1 capsule by mouth every morning Active sertraline (ZOLOFT) 50 MG tablet Take 50 mg by mouth daily Sleep doctor recommends taking at bedtime Active cyanocobalamin (VITAMIN B-12) 1000 MCG tablet Take 1,000 mcg by mouth daily Active Continuous Blood Gluc Sensor (DEXCOM G6 SENSOR) MISC Active melatonin 3 MG CAPS Take 10 mg by mouth At Bedtime Active Polyethylene Glycol 400 (BLINK TEARS OP) Place 1 drop into both eyes daily as needed Active HEMP OIL OR EXTRACT OR OTHER CBD CANNABINOID, NOT MEDICAL CANNABIS, Apply 1 Application topically 2 times daily as needed (Arthritis on right knee and wrist) Topical cream Active acetaminophen (TYLENOL) 325 MG tabletIndications:S /P CABG (coronary artery bypass graft) Take 2 tablets (650 mg) by mouth every 4 hours as needed for mild pain 40 tablet 04/25/2021 Active glucagon 1 MG kit 1 mg once as needed for low blood sugar Active gabapentin (NEURONTIN) 300 MG capsuleIndications: S/P CABG (coronary artery bypass graft) Take 1 capsule (300 mg) by mouth 2 times daily 05/01/2021 Active Additional Information Patient taking differently:300 mg Oral,(No frequency reported), 2029 and 2299, Informant: Self, Reported on 10/14/2021 aspirin (ASA) 325 MG tablet Take 325 mg by mouth daily Active Copper Gluconate (COPPER CAPS) 2 MG CAPS Take by mouth daily Active Ferrous Sulfate 324 (65 Fe) MG TBEC Take by mouth every morning Rx out, now getting it OTC Active acetaminophen (TYLENOL) 325 MG tablet Take 650 mg by mouth At Bedtime Active INSULIN PUMP - OUTPATIENT BASAL RATES and [...] 35 mg/dL BLOOD GLUCOSE TARGET: 110 mg/dL Active clotrimazole (LOTRIMIN) 1 % external solution Instill 5 drops into left ear two times daily, lay with ear up for at least 10 minutes after use. Use a cotton ball with vaseline when showering to keep dry. Active insulin lispro (HUMALOG) 100 UNIT/ML injection by Device route See Admin Instructions Active carvedilol (COREG) 12.5 MG tabletIndications:E ssential hypertension Take 1 tablet (12.5 mg) by mouth 2 times daily (with meals) and 2029 60 tablet 3 10/16/2021 Active rosuvastatin (CRESTOR) 40 MG tabletIndications:C oronary artery disease involving confed[place] coos coronary artery of conf[place]os heart without angina pectoris,Hyperlipid emia LDL goal <70,S/P coronary artery stent placement Take 1 tablet (40 mg) by mouth every evening 90 tablet 3 10/17/2021 Active amLODIPine (NORVASC) 10 MG tabletIndications:E ssential hypertension,S/P CABG (coronary artery bypass graft) Take 1 tablet (10 mg) by mouth At Bedtime 90 tablet 1 12/09/2021 Active chlorthalidone (HYGROTON) 25 MG tablet Take 25 mg by mouth daily Active hydrALAZINE (APRESOLINE) 50 MG tabletIndications:E ssential hypertension Take 1 tablet (50 mg) by mouth 3 times daily Take 1 tablet 25mg three times daily in addition 1 tablet 50mg three times daily, for a total of 75mg three times daily 270 tablet 09/23/2022 Active lisinopril (ZESTRIL) 10 MG tabletIndications:S /P CABG (coronary artery bypass graft) Take 1 tablet (10 mg) by mouth daily At bedtime 90 tablet 09/25/2022 Active isosorbide mononitrate (IMDUR) 60 MG 24 hr tabletIndications:E ssential hypertension Take 1 tablet (60 mg) by mouth daily 1630. Appointment needed to receive further refills. 90 tablet 11/21/2022 Active hydrALAZINE (APRESOLINE) 25 MG tabletIndications:E ssential hypertension Take 1 tablet (25 mg) by mouth 3 times daily Appointment needed for additional refills. Please call [phone] to schedule. Take 1 tablet 25mg three times daily in addition 1 tablet 50mg three times daily, for a total of 75mg three times daily 270 tablet 12/22/2022 Active Active Problems Problem Noted Date Diagnosed Date Bradycardia 10/14/2021 S/P CABG (coronary artery bypass graft) 04/29/20 21 Fluid overload 04/29/2021 Transient hyperglycemia post procedure Weakness of both legs 04/28/2021 Near syncope 04/28/2021 Anemia, unspecified type 04/28/2021 Weakness 04/28/2021 CAD (coronary artery disease) 04/19/2021 Status post coronary angiogram 03/13/2021 Abnormal stress test 02/26/2021 Overview: Added automatically from request for surgery [id number] Dyspnea on exertion 12/14/2020 Chronic renal insufficiency, stage 3 (moderate) 11/30/2017 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 Provider to review Essential hypertension 03/27/2004 Overview: Renal Artery US: 09/2013:Patent bilateral renal arteries Renal Artery US 08/2012: Right and Left <60% stenosis Problem list name updated by automated process. 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 Provider to review Hyperlipidemia LDL goal <70 11/16/2002 Overview: Problem list name updated by automated process. Provider to review Coronary artery disease invo lving confederated coos coronary artery of confed[place] coos heart without angina pectoris Overview: 04/09/2015 - [...] calcification Moderate non-obstructive CAD per 07/22 angiogram Resolved Problems Problem Noted Date Diagnosed Date Resolved Date Advance Care Planning 10/22/20162018 Overview: Advance Care Planning 10/22/2016: Receipt of ACP document: Received: Health Care Directive which was witnessed or notarized on 12/03/2014. Document previously scanned on 08/07/2016. Validation form completed and sent to be scanned. Code Status needs to be updated to reflect choices in most recent ACP document. Confirmed/documented designated decision maker(s). Added by Hoa Clayton GAS CHARGER Advance Care Planning Liaison Abnormal nuclear stress test 01/03/2015 04/17/2015 Pain in limb 04/01/2007 04/27/2007 Immunizations Name Administration Dates Next Due Influenza (IIV3) PF 07/27/2002,06/30/1997 Pneumococcal 23 valent 06/30/1997 TD,PF 7+ (Tenivac) 06/30/1997 Family History Medical History Relation Comments [...] 0 04/19/1970 - 04/19/1972 Smokeless Tobacco: Never Tobacco Cessation:Counseling Given: Yes Alcohol Use Standard Drinks/Week Comments Yes 0 (1 standard drink = 0.6 oz pur e alcohol) 4-5 drinks week PHQ-2 Answer Date Recorded PHQ-2 Score 1 10/23/2020 Adolescent Education Answer Date Record ed Getting School Help Needed Not on file 05/12 Sex and Gender Information Value Date Recorded Sex Assigned at Male 03/12/2021 12:11 PM CDT Gender Identity Male 10/20/2020 1:27 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 LEADER Sexual Orientation Not on file Last Filed Vital Signs Vital Sign Reading Time Taken Comments Blood Pressure 144/72 05/15/2022 11:50 AM CDT Pulse 80 01/13/2023 2:45 PM CDT Temperature 36.4 ??C (97.5 ??F) 05/15/2022 9:45 AM CD T Respiratory Rate 16 05/15/2022 11:5 0 AM CDT Oxygen Saturation 95% 01/13/2023 2:45 PM CDT Inhaled Oxygen Concentration - - Weight 98.4 kg (216 lb 14.4 oz) 05/15/2022 6:00 AM CDT Height 180.3 cm (5' 11) 05/15/2022 6:00 AM CDT Body Mass Index 30.25 05/15/2022 6:00 AM CDT Plan of Treatment Health Maintenance Due Date Last Done Comments ANNUAL REVIEW OF HM ORDERS 1949 CT COLONOGRAPHY 1949 DIABETIC FOOT EXAM 1950 FLEX SIG 1949 sDNA (Cologuard) 1949 HEPATITIS C SCREENING 11/06/1967 MICROALBUMIN 03/27/2005 03/27/2004 RSV VACCINE (1 - Risk 60-74 years 1-dose series) 2009 FALL RISK ASSESSMENT 2014 FIT 01/12/2022 01/12/2021 A1C 04/16/2022 10/14/2021, 04/11, 04/28/2021, Additional history exists LUNG CANCER SCREENING 04/28/2022 04/28/2021, 021 LIPID 06/06/2022 06/06/2021, 12/08, 11/30/2017, Additional history exists HEMOGLOBIN 10/15/2022 10/15/2021, 03/0 02/2022, 07/03/2021, Additional history exists BMP 10/29/2022 10/29/2021, 03/0 04/2022, 10/15/2021, Additional history exists PHQ-2 (once per calendar year) 2023 10/23/2020, 12/30/2019, 10/06/2019 MEDICARE ANNUAL WELLNESS VISIT 12/27/2023 12/26/2022 COVID-19 Vaccine ( season) 2024 05/01/2022, 11/14/2021, 06/12/2021, Additional history exists INFLUENZA VACCINE (#1) 2024 , 05/01/2022, 06/12/2021, Additional history exists EYE EXAM 09/07/2024 09/07/2023, 11/0 02/2023, 10/27/2022 ADVANCE CARE PLANNING 10/09/2025 10/09/2020 , 12/01/2018, 12/01/2018, Additional history exists DTAP/TDAP/TD IMMUNIZATION (3 - Td or Tdap) 03/18/2028 03/18/2018, 09/13/2008, 06/30/1997 COLONOSCOPY 09/30/2028 09/30/2018, 09/11, 09/29/2018, Additional history exists COLORECTAL CANCER SCREENING 09/30/2028 Pneumococcal Vaccine: 65+ Years Completed 10/27/2017, 09/11/2016, 12/29/2014, Additional history exists URINALYSIS Completed 04/27/2021, 04/17/2021 ZOSTER IMMUNIZATION Completed 10/31/2021, HPV IMMUNIZATION Aged Out No longer e ligible based on patient's age to complete this topic MENINGITIS IMMUNIZATION Aged Out No l onger eligible based on patient's age to complete this topic RSV MONOCLONAL ANTIBODY Aged Out No l onger eligible based on patient's age to complete this topic Medical Devices Implanted Type Area Supervisor Grounds Device Identifier Shelf Expiration Date Model / Serial / Lot Lead Ingevity+ Af 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 7841 52cm - [id number] Implanted:Qty: 1 on 10/15/2021 at [facility] [employer] 02/12/2023 [id number] / [id number] / [id number] Lead Ingevity+ Af Is1 7840 4cm - [id number] Implanted:Qty: 1 on 10/15/2021 at [facility] [employer] 01/03/2023 7840 / [id number] / [id number] Pcmkr Card Accolade Mri - [id number] Implanted:Qty: 1 on 10/15/2021 by Alvarado Syed MD at [facility] Pacemaker [employer] L331 / [id number] / Procedures Procedure Name Priority Date/Time Associated Diagnosis Comments BASIC METABOLIC PANEL Routine 10/29/2021 11:25 AM CDT Ischemic cardiomyopathy Dyspnea on exertion CBC WITH PLATELETS Routine 10/15/2021 5: 30 AM MAINTENANCE LEADER HEMOGLOBIN A1C Routine 10/14/2021 7:19 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 LEADER LIPID PROFILE Routine 06/06/2021 8:02 AM CDT Coronary artery disease involving coronary bypass graft of confederated coos heart without angina pectoris CT CHEST PULMONARY EMBOLISM W CONTRAST STAT 04/28/2021 7:07 PM CDT ROUTINE UA WITH MICROSCOPIC REFLEX TO CULTURE STAT 04/27/2021 3:16 PM CDT COLONOSCOPY - HIM SCAN Routine 09/30/2018 HCL ALBUMIN URINE (INC CREAT) Routine 03/27/2004 12:20 PM CDT Diabetes Uncompl Adult-Type Ii Hyperlipidemia Nec/Nos from Last 3 Months or Most Recently Relevant to Health Maintenance Results * (ABNORMAL) Basic metabolic panel (10/29/2021 11:25 AM CDT) Sodium 140 133 - 144 mmol/L 10/29/2021 12:24 PM CDT [facility] Potassium 4.8 3.4 - 5.3 mmol/L 10/29/2021 12:24 PM CDT LABORATORY Chloride 113(H) 94 - 109 mmol/L 10/29/2021 12:24 PM CDT [facility] Carbon Dioxide (CO2) 22 20 - 32 mmol/L 10/29/2021 12:24 PM CDT [facility] Anion Gap 5 3 - 14 mmol/L 10/29/2021 12:24 PM CDT [facility] Urea Nitrogen 49(H) 7 - 30 mg/dL 10/29/2021 12:24 PM CDT [facility] Creatinine 1.37(H) 0.66 - 1.25 mg/dL 10/29/2021 12:24 PM CDT [facility] Calcium 8.5 8.5 - 10.1 mg/dL 10/29/2021 12:24 PM CDT [facility] Glucose 127(H) 70 - 99 mg/dL 10/29/2021 12:24 PM CDT [facility] GFR Estimate 55(L) >60 mL/min/1.7 3m2 10/29/2021 12:24 PM CDT [facility] Comment:Effective July 112020 eGFRcr in adults is calculated using the 2020 CKD-EPI creatinine equation which includes age and gender (Prateek et al., NEJM, DOI: 10.1056/ROLKwa1827887) Blood STRUCTURE OF RIGHT UPPER LIMB / Unknown Venipuncture / Unknown 10/29/2021 11:25 AM CDT 10/29/2021 11:25 AM CDT Giuliana Gomez APRN MOLDING LINE ASSISTANT LAB - BLOOD ORDERABLES LABORATORY [facility] [address] [facility] [address] Lab (1st floor, no room number) [place] [address], [facility] [phone] * (ABNORMAL) CBC with platelets (10/15/2021 5:30 AM MAINTENANCE LEADER) WBC Count 9.0 4.0 - 11.0 10e3/uL 10/15/2021 5:43 AM [facility] RBC Count 3.67(L) 4.40 - 5.90 10e6/uL 10/15/2021 5:43 AM [facility] Hemoglobin 10.2(L) 13.3 - 17.7 g/dL 10/15/2021 5:43 AM [facility] Hematocrit 31.7(L) 40.0 - 53.0 % 10/15/2021 5:43 AM [facility] MCV 86 78 - 100 fL 10/15/2021 5:43 AM [facility] MCH 27.8 26.5 - 33.0 pg 10/15/2021 5:43 AM [facility] MCHC 32.2 31.5 - 36.5 g/dL 10/15/2021 5:43 AM [facility] RDW 14.9 10.0 - 15.0 % 10/15/2021 5:43 AM [facility] Platelet Count 185 150 - 450 10e3/uL 10/15/2021 5:43 AM [facility] Blood STRUCTURE OF LEFT HAND / Unknown Venipuncture / Unknown 10/15/2021 5:30 AM MAINTENANCE LEADER 10/15/2021 5:40 AM MAINTENANCE LEADER Luis Felipe Allan PA-C LAB - BLOOD ORDERABLES LABORATORY [facility] [address] 1[address] floor, [address] [place] [address], [facility] [phone] * (ABNORMAL) Hemoglobin A1c (10/14/2021 7:19 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 LEADER) Hemoglobin A1C 7.4(H) 0.0 - 5.6 % 10/14/2021 8:25 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 LEADER LABORATORY Comment: Normal <5.7% Prediabetes 5.7-6.4% ?? Diabetes 6.5% or higher Note: Adopted from ADA consensus guidelines. Blood STRUCTURE OF LEFT HAND / Unknown Venipuncture / Unknown 10/14/2021 7:19 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 LEADER 10/14/2021 7:34 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 LEADER Luis Felipe Allan PA-C LAB - BLOOD ORDERABLES Performing Organization Address City/[facility]/ZIP Co de Phone Number LABORATORY [facility] [address] 1[address] floor, [address] [place] [address], [facility] [phone] * Lipid Profile (06/06/2021 8:02 AM CDT) Cholesterol 115 <200 mg/dL 06/06/2021 9:11 AM CDT [facility] Triglycerides 123 <150 mg/dL 06/06/2021 9:11 AM CDT [facility] Direct Measure HDL 41 >=40 mg/dL 2020 9:11 AM CDT [facility] LDL Cholesterol Calculated 49 <=100 mg/dL 06/06/2021 9:11 AM CDT [facility] Non HDL Cholesterol 74 <130 mg/dL 06/06/2021 9:11 AM CDT [facility] Patient Fasting > 8hrs? Yes 06/06/2021 9:11 AM CDT [facility] Blood STRUCTURE OF RIGHT UPPER LIMB / Unknown Venipuncture / Unknown 06/06/2021 8:02 AM CDT 06/06/2021 8:04 AM CDT Narrative LABORATORY - 06/06/2021 9:11 AM CDT Cholesterol Desirable: ??<200 mg/dL Triglycerides Normal: ??Less than 150 mg/dL Borderline High: ??150-199 mg/dL High: ??200-499 mg/dL Very High: ??Greater than or equal to 500 mg/dL Direct Measure HDL Female: ??Greater than or equal to 50 mg/dL Male: ??Greater than or equal to 40 mg/dL LDL Cholesterol Desirable: ??<100mg/dL Above Desirable: ??100-129 mg/dL Borderline High: ??130-159 mg/dL High: ??160-189 mg/dL Very High: ??>= 190 mg/dL Non HDL Cholesterol Desirable: ??130 mg/dL Above Desirable: ??130-159 mg/dL Borderline High: ??160-189 mg/dL High: ??190-219 mg/dL Very High: ??Greater than or equal to 220 mg/dL Giuliana Gomez APRN MOLDING LINE ASSISTANT LAB - BLOOD ORDERABLES [facility] [address] Lab (1st floor, no room number) [place] [address], [facility] [phone] * CT Chest Pulmonary Embolism w Contrast (04/28/2021 7:07 PM CDT) Anatomical Region Laterality Modality Chest, SUBRAD CT BODY, UMP CT CHEST Computed Tomography 04/28/2021 6:09 PM CDT Impressions 04/28/2021 7:55 PM CDT IMPRESSION: 1. ??No pulmonary embolism. 2. ??New sternotomy with postsurgical changes of CABG. New moderate sized left and small right pleural effusion with left basilar consolidation. Scattered mild infiltrate or atelectasis in the mid and lower lungs. Narrative 04/28/2021 7:55 PM CDT EXAM: CT CHEST PULMONARY EMBOLISM W CONTRAST LOCATION: [facility] DATE/TIME: 04/28/2021 6:09 PM INDICATION: Frequent falls. [...] Normal. Procedure Note Brandon Esqueda MD - 04/28/2021 EXAM: CT CHEST PULMONARY EMBOLISM W CONTRAST LOCATION: [facility] DATE/TIME: 04/28/2021 6:09 PM INDICATION: Frequent falls. Weakness and dizziness. COMPARISON: 04/16/2021. TECHNIQUE: CT chest pulmonary angiogram during arterial phase injection ofIV contrast. Multiplanar reformats and MIP reconstructions were performed.Dose reduction techniques were used. CONTRAST: 78 mL [id number]. FINDINGS: ANGIOGRAM CHEST: Pulmonary arteries are normal caliber and negative forpulmonary emboli. Thoracic aorta is negative for dissection. No CTevidence of right heart strain. LUNGS AND PLEURA: New small right pleural effusion with moderate size leftpleural effusion. Left basilar consolidation with a few patchy regions ofatelectasis in the mid and lower lungs. MEDIASTINUM/AXILLAE: Interval sternotomy and postsurgical changes ofCABG. CORONARY ARTERY CALCIFICATION: CABG. UPPER ABDOMEN: Normal. MUSCULOSKELETAL: Normal. IMPRESSION: 1. No pulmonary embolism. 2. New sternotomy with postsurgical changes of CABG. New moderate sizedleft and small right pleural effusion with left basilar consolidation.Scattered mild infiltrate or atelectasis in the mid and lower lungs. Edmundo Granda MD IMG CT ORDERABLE S * (ABNORMAL) UA with Microscopic reflex to Culture (04/27/2021 3:16 PM CDT) Color Urine Yellow Colorless, Straw, Light Yellow, Yellow 04/27/2021 3:31 PM CDT LABORATORY Appearance Urine Clear Clear 04/27/20 3:31 PM CDT LABORATORY Glucose Urine Negative Negative mg/dL 04/27/2021 3:31 PM CDT LABORATORY Bilirubin Urine Negative Negative 3:31 PM CDT LABORATORY Ketones Urine Negative Negative mg/dL 04/27/2021 3:31 PM CDT LABORATORY Specific [place] Urine 1.017 1.003 - 1.035 04/27/2021 3:31 PM CDT LABORATORY Blood Urine Negative Negative 04/27/2021 3:31 PM CDT LABORATORY pH Urine 5.0 5.0 - 7.0 04/27/2021 3:31 PM CDT LABORATORY Protein Albumin Urine Negative Negative mg/dL 04/27/2021 3:31 PM CDT LABORATORY Urobilinogen Urine Normal Normal, 2.0 mg/dL 04/27/2021 3:31 PM CDT LABORATORY Nitrite Urine Negative Negative 04/27/2021 3:31 PM CDT LABORATORY Leukocyte Esterase Urine Negative Negative 04/27/2021 3:31 PM CDT LABORATORY RBC Urine 1 <=2 /HPF 04/27/2021 3:31 PM CDT LABORATORY WBC Urine <1 <=5 /HPF 04/27/2021 3:31 PM CDT LABORATORY Hyaline Casts Urine 3(H) <=2 /LPF 04/27/2021 3:31 PM CDT LABORATORY Urine URINE SPECIMEN OBTAINED BY CLEAN CATCH PROCEDURE / Unknown Non-blood Collection / Unknown 04/27/2021 3:16 PM CDT 04/27/2021 3:19 PM CDT Narrative LABORATORY - 04/27/2021 3:31 PM CDT Urine Culture not indicated Jordan Merida MD LAB - URINE ORDERABL ES LABORATORY [facility] [address] 1[address], [address] [place] [address], [facility] [phone] * Colonoscopy - HIM Scan (09/30/2018) 09/30/2018 Narrative Ly Oh CMA - 09/30/2018 Care everywhere Provider Outside PROCEDURES * (ABNORMAL) MICROALBUMIN (INC URINE CREAT) (03/27/2004 12:20 PM CDT) Albumin Urine mg/L 79 mg/L [facility] Albumin Urine mg/g Cr 128.85(H) 0 - 20 mg/g Cr [facility] 03/27/2004 12:2 0 PM CDT 03/27/2004 12:25 PM CDT Roberto Linder MD LABORATORY [facility] from Last 3 Months or Most Recently Relevant to Health Maintenance Advance Directives For more information, please contact: [phone] Documents on File Type Date Recorded Patient Shipping Specialist Expl anation Advance Directives and Living Will 08/07/2016 11:22 AM Health Care Directiv e 12/03/2014 * Full Code (Latest Code Status on File) Date Activated Date Inactivated Comments 10/14/2021 7:08 PM 10/16/2021 4:41 PM All basic and advanced life-sustaining interventions are performed as appropriate Question Answer Comments Code status determined by: Discussion with patie nt/ legal decision maker * Full Code Date Activated Date Inactivated Comments 04/28/2021 10:13 PM 05/01/2021 7:39 PM All basic a nd advanced life-sustaining interventions are performed as appropriate Question Answer Comments Code status determined by: Discussion with patie nt/ legal decision maker * Full Code Date Activated Date Inactivated Comments 04/19/2021 1:42 PM 04/25/2021 3:42 PM All basic an d advanced life-sustaining interventions are performed as appropriate Question Answer Comments Code status determined by: Unable to dis cuss and no AD/POLST on file; continue PREVIOUSLY ORDERED code status Healthcare Agents on File Name Relationship Healthcare Agent [facility] Communication Michaela Andesron Spouse Health Care Agent [phone] (Mobile) Nadir Anderson Son First Alternate Health Care Agent Care Teams Filter Press Tender Relationship Specialty Start Date End Date Anatoliy Jackson MD PCP - General 05/14/12 Heath More MD [facility] [address] [facility] [address] [place] [address] PCP - Internal Medicine INTERNAL MEDICINE - ENDOCRINOLOGY, DIABETES & METABOLISM 01/06/14 Peter Gipson MD [facility] [address] [place] [address] [address] [place] [address] PCP - Urology 04/02/15 Giuliana Gomez APRN MOLDING LINE ASSISTANT [address] [place] [address] Nurse Practitioner Cardiovascular Disease 08/21/21 Fidencio Solis MD [address] [place] [address] Cardiovascular Disease 08/21/21
--- OUTSIDE RECORDS SUMMARY | 2024-04-22 12:17 | XMS_ITS | Encounter Summary ---
Author Organization [facility] Address [address] [place] [address] Care Team Providers Care Wire Coating Operator Metal Name Role Phone Elsewhere, Pcp Primary Care Provider Unavailabl e Reason for Visit * Reason Onset Date Comments Pre-visit Testing Orders 01/15/202403/08 Encounter Details Date Type Department Care Team (Latest Contact Info) Description 01/15/2024 Clinical Communication Division of Nephrology and Hypertension in [place], [place] [address] [place] [address] Elizabeth Frost M.D. [address] [place] [phone] Pre-visit Testing Orders (03/08) Social History Tobacco Use Types Packs/Day Years Used Date Smoking Tobacco: Never Passive Smoke Exposure: Never Smokeless Tobacco: Never Alcohol Use Standard Drinks/Week Comments Yes 5 (1 standard drink = 0.6 oz pur e alcohol) [facility] Utilities Answer Date Recorded In the [...] How often do you attend chur or quaker services? 1 to 4 times per year 08/13/2022 Do you belong to any clubs o r organizations such as confucianist groups, unions, fraternal or athletic [...] and heating? Not hard at all 08/13/2022 [facility] [place] of Occupat ional Health - Occupational Stress [...] your living situation today? I have a [facility] place to live 09/11/2023 Education Answer [...] st Contact Info) Description 06/27/2024 4:00 PM RELATIONS MGR Telemedicine Division of Nephrology and Hypertension in [place], [place] [address] [place] [address] Elizabeth Frost M.D. [address] [place] [address] documented as of this encounter Results * NEP Blood pressure check 6 hr (03/08/2024 3:01 PM CDT) Eliazbeth Frost M.D. PFT ORDERABLES Performing Organization Address [facility] Co de Phone Number MMODAL NA * Albumin, Random, Urine (03/07/2024 1:46 PM CDT) Albumin, Random, U 5.4 mg/L 2023 3:30 PM CDT DTL Comment: ----ADDITIONAL INFORMATION---- This test has been modified from the clip on sunglasses assembler's instructions. Its performance characteristics were determined by [facility] in a manner consistent with CLIA requirements. This test has not been cleared or approved by the U.S. Food and Drug Administration. Creatinine 37 mg/dL 03/07/2024 2:53 PM CDT DTL Albumin/Creatinine Ratio 15 <17 mg/g 03/07/2024 3:30 PM CDT DTL Urine (Urine, Midstream) 03/07/2024 1:46 PM CDT 03/07/2024 2:14 PM CDT Elizabeth Frost M.D. LAB URINE ORDERABLES Performing Organization Address [facility] [place] [address], [facility] [place] [address] * Protein/Creatinine Ratio, Random, Urine (03/07/2024 1:46 PM CDT) Protein, Total, Random, U 4 mg/dL 03/07/2024 2:53 PM CDT DTL Creatinine, Random, U 37 16 - 326 mg/dL 03/07/2024 2:53 PM CDT DTL Protein/Creatin ine Ratio 0.11 <0.18 mg/mg 03/07/2024 2:53 PM CDT DTL Urine (Urine, Midstream) 03/07/2024 1:46 PM CDT 03/07/2024 2:14 PM CDT Elizabeth Frost M.D. LAB URINE ORDERABLES [facility] [address] [place] [address], [facility] DTL [facility] [address] [place] [address] * (ABNORMAL) CBC with Differential, Blood (03/07/2024 [...] M.D. LAB BLOOD ADD-ON Performing Organization Address City/[facility] Co de Phone Number [facility] [address] [place] [address], [facility] DTL [facility] [address] [place] [address] DHPM [facility] 200 [place] [address] * 25-Hydroxyvitamin D2 and D3 (03/07/2024 1:42 PM CDT) 25-Hydroxy D2 <4.0 ng/mL 03/08/2024 5:09 PM CDT SDSC 25-Hydroxy D3 35 ng/mL 03/08/2024 5:09 PM CDT SDSC 25-Hydroxy D Total 35 ng/mL 2023 5:09 PM CDT SDSC Comment: ----REFERENCE VALUE---- 25-HYDROXY D TOTAL (D2+D3) Optimum levels in the healthy population are 20-50. ----ADDITIONAL INFORMATION---- This test was developed and its performance characteristics determined by [facility] in a manner consistent with CLIA requirements. This test has not been cleared or approved by the U.S. Food and Drug Administration. Blood (Blood, Venous) 03/07/2024 1:42 PM CDT 03/08/2024 7:42 AM CDT Elizabeth Frost M.D. LAB BLOOD ADD-ON Performing Organization Address City/[facility]/ZIP Co de Phone Number [facility] [employer] [address] [place] [address] [facility] [address] [place] [address] * (ABNORMAL) Cystatin C with Estimated GFR [...] PM CDT 03/07/2024 2:07 PM CDT Elizabeth Forst M.D. LAB BLOOD ADD-ON [facility] [address] [place] [address], [facility] [address] [place] [address] * (ABNORMAL) Renal Function Panel (03/07/2024 1:42 PM CDT) Pathologist [facility] Potassium, S 5.0 3.6 - 5.2 mmol/L [...] CDT Elizabeth Frost M.D. LAB BLOOD ADD-ON [facility] [address] [place] [address], [facility] DTL [facility] [address] [place] [address] documented in this encounter Visit Diagnoses Diagnosis Chronic Kidney Disease (CKD), Stage 3b Glomerular Filtration Rate (GFR) 30 To 44 (HCC)- Primary Hypertension Essential Primary documented in this encounter Care Teams Wire Coating Operator Metal Relationship Specialty Start Date End Date Elsewhere, Pcp PCP - General Internal Medicine 12/19/22 documented as of this encounter
--- OUTSIDE RECORDS SUMMARY | 2024-04-22 12:17 | XMS_ITS | Encounter Summary ---
Author Organization [place] Address [address] [facility] [place] [address] Care Team Providers Care Director Of Materials Name Role Phone Eliza Patten MD Primary Care Provider Heath More MD Unavailable [phone] Peter Gipson MD Unavailable [phone] Peter Aguiar MD Unavailable Unavail [facility] Peter Mcmullen MD Unavailable [phone] Fidencio Solis MD Unavailable Hallie Maldonado APRN PLANT BUYER Unavailable [phone] Giuliana Gomez APRN PLANT BUYER Unavailable [phone] Fidencio Solis MD Unavailable Giuliana Gomez APRN PLANT BUYER Unavailable [phone] Giuliana Gomez APRN PLANT BUYER Unavailable [phone] Fidencio Solis MD Unavailable Fidencio Solis MD Unavailable Encounter Details Date Type Department Care Team (Late st Contact Info) Description 07/22/2013 Office Visit-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 DATE: 07/22/2013 JUSTIN NIKITA DATE OF : 1950 AGE: [age] years old Referring Physician: ELIZA PATTEN Referring Clinic: [facility] CURRENT DIAGNOSES 1. Diabetes Mellitus-Insulin Dependent, 250.00 [...] has done a walking program which is a bit inconsistent and his claudication has improved. He is a diabetic with multiple risk factors for coronary artery disease. He has had RCA ischemia onnuclear stress testing which seems to have increased in size recently, associated with some shortness of breath when he was trying to push a wheelbarrow uphill in his yard. He has [place] active [place] the [place] and has had no other exercise intolerance. LV function has been normal. Based on thi s finding Dr. Plummer sent him for an invasive coronary angiogram done on July [address] Peter Aguiar via a right radial artery approach. He had no more than 60% stenosis which was notable in the obtuse marginal number 2 and the proximal PDA. Fractional flow reserves were done to the right PDA with adenosine, revealing 0.84, the distal circumflex 0.87, and the circumflex OM-2 0.92, deemed not to be flow limiting. His glucose was very elevated when he checked in for his procedure. It was felt that he could have some microvascular dysfunction contributing to his symptoms and he was encouragedto follow up with the travelers' aid worker, which is scheduled in August. He is now back on aspirin therapy and a full program of medical management, including aspirin, as Inoted, metoprolol, and simvastatin. He also takes lisinopril and clonidine for blood pressure control, which is reasonable both today and in the Video Camera Operator. He had lipids done at the hospital with his procedures. LDL was 86, HDL 35, triglycerides 231. Given his elevated sugars it is not surprising that his triglycerides are high as his fasting glucose when he checked in was 349. There has been discussion about putting him on fish oil. He is not very anxious to start this. Since he is not exercising, he has uncontrolled glucose levels, and could lose some weight, lifestyle modification should probably help him the most. He will discuss this with Dr. More. We also discussed Dr. Plummer's thoughts of switching metoprolol to carvedilol or Bystolic. However,the patient does not want to do this here as his travelers' aid worker did start the metoprolol originally. He will talk this over with the travelers' aid worker and see what his decision is. He [...] have lipids again when he sees his travelers' aid worker in August and pending those results he may need a drug change. However, he has taken Lipitor [...] 2008, myocardial perfusion (Nuc) Jan 2011, echocardiogram , myocardial perfusion (Nuc) Apr 2012, Vascular Procedures-Noninvasive: RY-Exercise Jan 2011, 08/21 bilateral LE arterial duplex and aortoiliac duplex, 10/19 renal arteryUS, 08/22: Rest/exercise RY and renal ultrasound Cardiac [...] was challenging for interpretation due to bowel artifact, 06/22-Small,partially reversible, mid to basal-inferolateral defect consistent with [...] - , drives car and active lifestyle; Exercise- no regular exercise; Seat Belt Use - always; Occupation - semi retired; Residence - lives with in own home and lives in [place] year round in own home; Place of - [place]; REVIEW OF SYSTEMS GENERAL feeling good, energy [...] cramping to left calf with dedicated walks, hasn'tnoticed it as much as before- medications have [...] He may have a false positive stress test or perhaps microvascular dysfunction given his uncontrolled diabetes. For now I would continue hismedical program. He will see Dr. Plummer back in six months' time. I have asked him to return to seeus sooner if he has any symptoms of chest pain or shortness of breath. I have renewed his nitroglyce rin sublingual. 2. Hypertension, controlled. 3. Diabetes, uncontrolled. He will talk with his travelers' aid worker about switching metoprolol to carvedilol or Bystolic, about his glucose control, his elevated triglycerides, and his lipid control perhis own request. 4. Dyslipidemia, borderline control. I would consider Crestor for this man if possible to help HDL and lower LDL. Again, he wishes to talk this over with his travelers' aid worker. 5. We will see him back in six months, or sooner if symptoms arise. Greater than 50% of this 45 minute visit today was spent in counseling, record review, and answering a multitude of questions. TODAYS ORDERS 1. F/U with Brendan Plummer, DO december or january Coty Gurrola, N.P. documented in this encounter Plan of Treatment Not on file documented as of this encounter Visit Diagnoses Not on filedocumented in this encounter Care Teams Director Of Materials Relationship Specialty Start Date End Date Eliza Patten MD PCP - General 05/14/12 Heath More MD [facility]IC [facility] [address] [place] [phone] PCP - Internal Medicine INTERNAL MEDICINE - ENDOCRINOLOGY, DIABETES & METABOLISM 01/06/14 Peter Gipson MD [facility] [address] [place] [address] [address] [place] [address] PCP - Urology 04/02/15 Peter Aguiar MD Assigned Heart and Vascular Provider 06/01/20 12/15/20 Peter Mcmullen MD [address] [facility] [address] [place], [place] [address] Assigned Musculoskeletal Provider 06/01/20 06/20/22 Fidencio Solis MD [address], [facility] [address] [place] [address] Assigned Heart and Vascular Provider 12/16/20 02/21/21 Hallie Maldonado APRN PLANT BUYER [address] [place] [address] Assigned Heart and Vascular Provider 02/22/21 05/18/21 Giuliana Gomez APRN PLANT BUYER [address] [place] [id number] Assigned Heart and Vascular Provider 05/19/21 06/15/21 Fidencio Solis MD [address] [place] [address] Assigned Heart and Vascular Provider 06/16/21 06/29/21 Giuliana Gomez APRN PLANT BUYER [address] [place] [address] Assigned Heart and Vascular Provider 06/30/21 07/18/22 Giuliana Gomez APRN PLANT BUYER [address] [place] [address] Nurse Practitioner Cardiovascular Disease 08/21/21 Fidencio Solis MD [address] [place] [address] Cardiovascular Disease 08/21/21 Fidencio Solis MD [address] [place] [address] Assigned Heart and Vascular Provider 07/19/22 04/17/23 documented as of this encounter
--- OUTSIDE RECORDS SUMMARY | 2024-04-22 12:17 | XMS_ITS | Encounter Summary ---
Author Organization [place] Address [address] [facility] [place] [address] Care Team Providers Care Turning Machine Set Up Operator Name Role Phone Anatoliy Jackson MD Primary Care Provider Heath More MD Unavailable [phone] Peter Gipson MD Unavailable Peter Mcmullen MD Unavailable Giuliana Gomez APRN RETAIL SALES PROFESSIONAL Unavailable [phone] Giuliana Gomez APRN RETAIL SALES PROFESSIONAL Unavailable [phone] Fidencio Solis MD Unavailable Fidencio Solis MD Unavailable Encounter Details Date Type Department Care Team (Late st Contact Info) Description 09/03/2021 [facility] Medical Advice [facility] [address] [place] [address] Allison Jensen, LETICIA Social History Tobacco Use Types Packs/Day Years [...] CDT Gender Identity Male 10/20/2020 1:27 PM AGENT Sexual Orientation Not on file COVID-19 Exposure Response Date Recorded In the last month, have you been in contact with someone who was confirmed or 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 No / Unsure 08/21/2021 9:56 AM AGENT documented as of this encounter Plan of Treatment Not on file documented as of this encounter Visit Diagnoses Not on filedocumented in this encounter Care Teams Turning Machine Set Up Operator Relationship Specialty Start Date End Date Anatoliy aJckson MD PCP - General 05/14/12 Heath More MD [facility]IC [facility] [address] [facility] [place] [phone] PCP - Internal Medicine INTERNAL MEDICINE - ENDOCRINOLOGY, DIABETES & METABOLISM 01/06/14 Peter Gipson MD [facility] UROLOGY [address] [place] [address] [address] [place] [address] PCP - Urology 04/02/15 Peter Mcmullen MD [address] [place] [address] Assigned Musculoskeletal Provider 06/01/20 06/20/22 Giuliana Gomez APRN RETAIL SALES PROFESSIONAL [address] [place] [address] Assigned Heart and Vascular Provider 06/30/21 07/18/22 Giuliana Gomez APRN RETAIL SALES PROFESSIONAL [address] [place] [address] Nurse Practitioner Cardiovascular Disease 08/21/21 Fidnecio Solis MD [address] [place] [address] Cardiovascular Disease 08/21/21 Fidencio Solis MD [address] [place] [address] Assigned Heart and Vascular Provider 07/19/22 04/17/23 documented as of this encounter
--- OUTSIDE RECORDS SUMMARY | 2024-04-22 12:17 | XMS_ITS | Encounter Summary ---
Author Organization [place] Address [address] [facility] [place] [address] Care Team Providers Care Air Quality Consultant Name Role Phone Eliza Patten MD Primary Care Provider Heath More MD Unavailable [phone] Peter Gipson MD Unavailable [phone] Peter Aguiar MD Unavailable Unavail [facility] Peter Mcmullen MD Unavailable [phone] Fidencio Solis MD Unavailable Hallie Maldonado APRN SENIOR QUALITY ANALYST Unavailable [phone] Giuliana Gomez APRN SENIOR QUALITY ANALYST Unavailable [phone] Fidencio Solis MD Unavailable Giuliana Gomez APRN SENIOR QUALITY ANALYST Unavailable [phone] Giuliana Gomez APRN SENIOR QUALITY ANALYST Unavailable [phone] Fidencio Solis MD Unavailable Fidencio Solis MD Unavailable Encounter Details Date Type Department Care Team (Late st Contact Info) Description 06/20/2013 Office Visit-[facility] [place] [address] [facility] [address] [place] [address] Hyacinth Plummer DO [address] [facility] [address] [place] [address] Social History Tobacco Use Types Packs/Day Years Used Date Smoking Tobacco: Never Alcohol Use Standard Drinks/Week Comments Yes 0 (1 standard drink = 0.6 oz pur e alcohol) occasionally Sex and Gender Information Value Date Recorded Sex Assigned at Male 03/12/2021 12:11 PM CDT Gender Identity Male 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 DATE: 06/20/2013 NIKITA ANDERSON DATE OF : 1950 AGE: [age] years old Referring Physician: ELIZA PATTEN Referring Clinic: [facility] CURRENT DIAGNOSES 1. [...] hr 1 p.o. twice daily 9. nitroglycerin 0.4 mg tablet, sublingual 1 Tab Sublingual - May Repeat Every 5 Minutes x2 For Chestpain 10. simvastatin 40 mg Tablet 1 p.o. qAM CHIEF COMPLAINTS HISTORY OF PRESENT ILLNESS Mr. Anderson is a pleasant 62-year-old male with a history of insulin dependent diabetes, hypertension, hyperlipidemia, and peripheral arterial disease. He is here for a follow up visit today. I did ask him to undergo a repeat Cardiolite stress test [...] intolerance, chest pain symptom, or difficulties with his breathing. He also has not noted any claudication symptoms. He does taken cilostazol for peripheral arterial disease. His Cardiolite stress test does show evidence of progression of ischemia.In addition to continuing to have an area of reversibility in the inferior and inferolateral wall, there is also a second area in the apex and distal lateral wall suggesting the possibility of at least two vessel disease. His LV function continues to be normal. His EF is around 54%. He did have EKGchanges consistent with ischemia as well as some chest discomfort with exercise. On exam today, his blood pressure was 108/54. Pulse was 58. His weight was 216, which is actually down about a pound. He is actually down about 6 pounds from last year. Body mass index was 30. He hashad a recent basic metabolic panel showing just mild renal insufficiency with a creatinine of 1.4. GFR was 56. This was markedly improved from a [...] arteryUS, 08/22: Rest/exercise RY and renal ultrasound Peripheral [...] with in own home and lives in [place] year round in own home; Place of - [place]; REVIEW OF SYSTEMS GENERAL feeling good, energy [...] hypertension, hyperlipidemia, and peripheral arterial disease. He has a persistent abnormality in the distribution of the right coronary artery as well as a new area in the distal lateral and apex suggesting the possibility of at least two vessel coronary disease. He also had EKG changes and chesttightness on stress testing. At this time, I [...] him with some pamphlets. I have ordered this test. He would like to go home and discuss this with his . We will plan to schedule this in the near future. He did not need any refills of his medications today. He does have nitroglycerin at home. He is on aspirin at this time. Lastly, he has mentioned that his blood sugars have beenpoorly controlled recently. I have suggested to him in the past that we change his beta-hong from metoprolol to either Coreg or Bystolic. He would like to further discuss this with Dr. More. Therefore, I have asked him to follow up regarding whether this would be of benefit for him since he does seem to be having difficulties controlling his blood sugar. Please feel free to contact me with any questions that you may have regarding his care. TODAYS ORDERS 1. (Define) set up angiogram with laxson or arlette only 2. Left Heart Cath abnormal stress test 3. Pre Cath Labs C. Kiara Plummer D.O. documented in this encounter Plan of Treatment Not on file documented as of this encounter Visit Diagnoses Not on filedocumented in this encounter Care Teams Air Quality Consultant Relationship Specialty Start Date End Date Eliza Patten MD PCP - General 05/14/12 Heath More MD [facility] [address] [facility] [address] [place] [phone] PCP - Internal Medicine INTERNAL MEDICINE - ENDOCRINOLOGY, DIABETES & METABOLISM 01/06/14 Peter Gipson MD [facility] UR[facility]Y [address] [place] [address] [address] [place], [place] [id number] PCP - Urology 04/02/15 Peter Aguiar MD Assigned Heart and Vascular Provider 06/01/20 12/15/20 Peter Mcmullen MD [address] [facility] [address] [place], [place] [address] Assigned Musculoskeletal Provider 06/01/20 06/20/22 Fidencio Solis MD [address], [place] [place] [address] Assigned Heart and Vascular Provider 12/16/20 02/21/21 Hallie Maldonado APRN SENIOR QUALITY ANALYST [address] [place] [address] Assigned Heart and Vascular Provider 02/22/21 05/18/21 Giuliana Gomez APRN SENIOR QUALITY ANALYST [address] [place] [address] Assigned Heart and Vascular Provider 05/19/21 06/15/21 Fidencio Solis MD [address], [place] [address] [place] [address] Assigned Heart and Vascular Provider 06/16/21 06/29/21 Giuliana Gomez APRN SENIOR QUALITY ANALYST [address] [place] [address] Assigned Heart and Vascular Provider 06/30/21 07/18/22 Giuliana Gomez APRN SENIOR QUALITY ANALYST [address] [place] [address] Nurse Practitioner Cardiovascular Disease 08/21/21 Fidencio Solis MD [address], [place] [place], [place] [address] Cardiovascular Disease 08/21/21 Fidencio Solis MD [address], [place] [address] [place], [place] [address] Assigned Heart and Vascular Provider 07/19/22 04/17/23 documented as of this encounter
--- OUTSIDE RECORDS SUMMARY | 2024-04-22 12:17 | XMS_ITS | Encounter Summary ---
Author Organization [facility] Address [address] [place] [address] Care Team Providers Care Hide Stretcher Hand Name Role Phone Elsewhere, Pcp Primary Care Provider Unavailabl e Reason for Visit * Reason Onset Date Comments Med Question 01/15/2024 Encounter Details Date Type Department Care Team (Latest Contact Info) Description 01/15/2024 Clinical Communication Division of Nephrology and Hypertension in [place], [place] [address] [place] [address] Elizabeth Frost M.D. [address] [place] [phone] Med Question Social History Tobacco Use Types Packs/Day Years Used Date Smoking Tobacco: Never Passive Smoke Exposure: Never Smokeless Tobacco: Never Alcohol Use Standard Drinks/Week Comments Yes 5 (1 standard drink = 0.6 oz pur e alcohol) [facility] Utilities Answer Date Recorded In the past 12 months has e [employer], gas, oil, or water [employer] threatened to shut off services in your [...] often do you attend chur ch or sikhism services? 1 to 4 times per year 08/13/2022 Do you belong to any clubs o r organizations such as mosque groups, unions, fraternal or athletic groups, or [...] your living situation today? I have a [facility] place to live 09/11/2023 Education [...] st Contact Info) Description 06/27/2024 4:00 PM SHOE TURNER Telemedicine Division of Nephrology and Hypertension in [place], [place] [address] [place] [address] Elizabeth Frost M.D. [address] [place] [address] documented as of this encounter Visit Diagnoses Not on filedocumented in this encounter Care Teams Hide Stretcher Hand Relationship Specialty Start Date End Date Elsewhere, Pcp PCP - General Internal Medicine 12/19/22 documented as of this encounter
--- OUTSIDE RECORDS SUMMARY | 2024-04-22 12:17 | XMS_ITS | Referral Summary ---
Author Organization [facility] Address [address] [facility] [place] [address] Care Team Providers Care Explosive Ordnance Technician Name Role Phone Anatoliy Jackson MD Primary Care Provider [phone] Heath More MD Unavailable Peter Gipson MD Unavailable [phone] Giuliana Gomez APRN SET UP AND CHARGER Unavailable [phone] Fidencio Solis MD Unavailable Allergies Active Allergy [...] 40 MG tabletIndications:C oronary artery disease involving wainwright coronary artery of wainwright heart without angina pectoris,Hyperlipid emia LDL goal [...] Appointment needed for additional refills. Please call [phone] to schedule. Take 1 tablet 25mg three [...] Overview: Added automatically from request for surgery [id number] Dyspnea on exertion 12/14/2020 Chronic renal insufficiency, [...] to review Coronary artery disease invo lving wainwright coronary artery of wainwright heart without angina pectoris Overview: 04/09/2015 - [...] designated decision maker(s). 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 Sexual Orientation Not on file Last Filed [...] 05/15/2022 6:00 AM CDT Plan of Treatment Not on file Medical Devices Implanted Type Area Deployment Specialist Device Identifier Shelf Expiration Date Model / Serial / Lot Lead Ingevity+ Af Is1 7841 52cm - [id number] Implanted:Qty: 1 on 10/15/2021 at [facility] [employer] 02/12/2023 7841 / [id number] / [id number] Lead Ingevity+ Af Is1 7840 4cm - [id number] Implanted:Qty: 1 on 10/15/2021 at [facility] [employer] 01/03/2023 7840 / [id number] / [id number] Pcmkr Card Accolade Mri El Dr - [id number] Implanted:Qty: 1 on 10/15/2021 by Alvarado Syed MD at [facility] Pacemaker [employer] L331 / [id number] / Procedures Procedure Name Priority Date/Time Associated Diagnosis Comments BASIC METABOLIC PANEL Routine 10/29/2021 11:25 AM CDT Ischemic cardiomyopathy Dyspnea on exertion CBC WITH PLATELETS Routine 10/15/2021 5: 30 AM DRUM BUILDER HEMOGLOBIN A1C Routine 10/14/2021 7:19 PM DRUM BUILDER LIPID PROFILE Routine 06/06/2021 8:02 AM CDT Coronary artery disease involving coronary bypass graft of wainwright heart without angina pectoris CT CHEST PULMONARY [...] - 144 mmol/L 10/29/2021 12:24 PM CDT LABORATORY Potassium 4.8 3.4 - 5.3 mmol/L 10/29/2021 12:24 PM CDT LABORATORY Chloride 113(H) 94 - 109 mmol/L 10/29/2021 12:24 PM CDT LABORATORY Carbon Dioxide (CO2) 22 20 - 32 mmol/L 10/29/2021 12:24 PM CDT LABORATORY Anion Gap 5 3 - 14 mmol/L 10/29/2021 12:24 PM CDT LABORATORY Urea Nitrogen 49(H) 7 - 30 mg/dL 10/29/2021 12:24 PM CDT LABORATORY Creatinine 1.37(H) 0.66 - 1.25 mg/dL 10/29/2021 12:24 PM CDT LABORATORY Calcium 8.5 8.5 - 10.1 mg/dL 10/29/2021 12:24 PM CDT LABORATORY Glucose 127(H) 70 - 99 mg/dL 10/29/2021 12:24 PM CDT LABORATORY GFR Estimate 55(L) >60 mL/min/1.7 3m2 10/29/2021 12:24 PM CDT LABORATORY Comment:Effective July 112020 eGFRcr in adults is calculated using the 2020 CKD-EPI creatinine equation which includes age and gender (Prateek et al., NEJ, DOI: 10.1056/FLYVbu1538013) Blood STRUCTURE OF RIGHT UPPER LIMB / Unknown Venipuncture / Unknown 10/29/2021 11:25 AM CDT 10/29/2021 11:25 AM CDT Giuliana Gomez APRN SET UP AND CHARGER LAB - BLOOD ORDERABLES LABORATORY [facility] Acute Care Lab [address] Lab (1st floor, no room number) [place] [address], [facility] [phone] * (ABNORMAL) CBC with platelets (10/15/2021 5:30 AM DRUM BUILDER) [facility] WBC Count 9.0 4.0 - 11.0 10e3/uL 10/15/2021 5:43 AM [facility] LABOR[facility] RBC Count 3.67(L) 4.40 - 5.90 10e6/uL 10/15/2021 5:43 AM [facility] Hemoglobin 10.2(L) 13.3 - 17.7 g/dL 10/15/2021 5:43 AM [facility] Hematocrit 31.7(L) 40.0 - 53.0 % 10/15/2021 5:43 AM [facility] MCV 86 78 - 100 fL 10/15/2021 5:43 AM [facility] MCH 27.8 26.5 - 33.0 pg 10/15/2021 5:43 AM [facility] MCHC 32.2 31.5 - 36.5 g/dL 10/15/2021 5:43 AM [facility] RDW 14.9 10.0 - 15.0 % 10/15/2021 5:43 AM [facility] Platelet Count 185 150 - 450 10e3/uL 10/15/2021 5:43 AM [facility] Blood STRUCTURE OF LEFT HAND / Unknown Venipuncture / Unknown 10/15/2021 5:30 AM DRUM BUILDER 10/15/2021 5:40 AM [facility] Luis Felipe Allan PA-C LAB - BLOOD ORDERABLES LABORATORY [facility] Acute Care Lab [address] 1st floor, [address] [place] [address], [facility] [phone] * (ABNORMAL) Hemoglobin A1c (10/14/2021 7:19 PM DRUM BUILDER) [facility] Hemoglobin A1C 7.4(H) 0.0 - 5.6 % 10/14/2021 8:25 PM [facility] Comment: Normal <5.7% Prediabetes 5.7-6.4% ?? Diabetes 6.5% or higher Note: Adopted from ADA consensus guidelines. Blood STRUCTURE OF LEFT HAND / Unknown Venipuncture / Unknown 10/14/2021 7:19 PM DRUM BUILDER 10/14/2021 7:34 PM DRUM BUILDER Luis Felipe Allan PA-C LAB - BLOOD ORDERABLES LABORATORY [facility] Acute Care Lab [address] 1[address] floor, [address] [place] [address], [facility] [phone] * Lipid Profile (06/06/2021 8:02 AM CDT) [...] AM CDT 06/06/2021 8:04 AM CDT Narrative RH LABORATORY - 06/06/2021 9:11 AM [...] equal to 220 mg/dL Giuliana Gomez APRN SET UP AND CHARGER LAB - BLOOD ORDERABLES [facility] Acute Care Lab [address] Lab (1st floor, no room number) [place] [address], [facility] [phone] * CT Chest Pulmonary Embolism w Contrast [...] CT CHEST PULMONARY EMBOLISM W CONTRAST LOCATION: [facility] DATE/TIME: 04/28/2021 6:09 PM INDICATION: Frequent [...] CT CHEST PULMONARY EMBOLISM W CONTRAST LOCATION: [facility] DATE/TIME: 04/28/2021 6:09 PM INDICATION: Frequent [...] mid and lower lungs. Edmundo Granda MD [facility] CT ORDERABLE S * (ABNORMAL) UA with [...] mg/dL 04/27/2021 3:31 PM CDT LABORATORY Specific Joiner Urine 1.017 1.003 - 1.035 04/27/2021 3:31 [...] MD LAB - URINE ORDERABL ES LABORATORY [facility] Acute Care Lab [address] 1[address] floor, [address] [place] [address], [facility] [phone] * Colonoscopy - HIM Scan (09/30/2018) 09/30/2018 Narrative Ly Oh CMA - 09/30/2018 Care everywhere Provider Outside PROCEDURES * (ABNORMAL) MICROALBUMIN (INC URINE CREAT) (03/27/2004 12:20 PM CDT) Albumin Urine mg/L 79 mg/L [facility] Albumin Urine mg/g Cr 128.85(H) 0 - 20 mg/g Cr [facility] 03/27/2004 12:2 0 PM CDT 03/27/2004 12:25 PM CDT Roberto Linder MD LABORATORY [facility] from Last 3 Months or Most Recently Relevant to Health Maintenance Advance Directives For more information, please contact: [phone] Documents on File Type Date Recorded Patient Calender Roll Operator Expl anation Advance Directives and Living Will [...] Agents on File Name Relationship Healthcare Agent Relationshi p Communication Michaela Anderson Spouse Health Care Agent Nadir Sanchez [facility] Health Care Agent Care Teams Explosive Ordnance Technician Relationship Specialty Start Date End Date Anatoliy Jackson MD PCP - General 05/14/12 Heath More MD [facility] [address] [facility] [address] [place] [phone] PCP - Internal Medicine INTERNAL MEDICINE - ENDOCRINOLOGY, DIABETES & METABOLISM 01/06/14 Peter Gipson MD [facility] [address] [place] [address] PCP - Urology 04/02/15 Giuliana Gomez, TOURIST CABIN KEEPER SET UP AND CHARGER [address] [place] [address] Nurse Practitioner Cardiovascular Disease 08/21/21 Fidencio Solis MD [address] [facility] [address] [place] [address] Cardiovascular Disease 08/21/21
--- OUTSIDE RECORDS SUMMARY | 2024-04-22 12:17 | XMS_ITS | Encounter Summary ---
Author Organization [facility] Address [address] [place] [address] Care Team Providers Care Ux Developer Name Role Phone Elsewhere, Pcp Primary Care Provider Unavailabl e Reason for Visit * Reason Comments Med Refill Encounter Details Date Type Department Care Team (Late st Contact Info) Description 02/17/2024 Refill Division of Nephrology and Hypertension in [place], [place] [address] [place] [phone] Alvaro Duong Jr., D.O. [address] [place] [phone] Med Refill Social History Tobacco Use Types Packs/Day Years Used Date Smoking Tobacco: Never Passive Smoke Exposure: Never Smokeless Tobacco: Never Alcohol Use Standard Drinks/Week Comments Yes 5 (1 standard drink = 0.6 oz pur e alcohol) [facility] Utilities Answer Date Recorded In the past 12 months has e [employer], gas, oil, or water [employer] threatened to shut off services in your [...] How often do you attend chur or samaritan services? 1 to 4 times per year 08/13/2022 Do you belong to any clubs o r organizations such as religious groups, unions, fraternal or athletic groups, or [...] and heating? Not hard at all 08/13/2022 [facility] - [...] your living situation today? I have a [facility] place to live 09/11/2023 Education Answer [...] st Contact Info) Description 06/27/2024 4:00 PM MECHANICAL DETAILER Telemedicine Division of Nephrology and Hypertension in [place], [place] [address] [place] [address] Elizabeth Frost M.D. [address] [place] [address] documented as of this encounter Visit Diagnoses Not on filedocumented in this encounter Additional Health Concerns Infection Onset Date Last Indicated Resolved Time COVID19 01/29/2024 01/29/2024 02/19/2024 4:45 AM CDT documented as of this encounter Care Teams Ux Developer Relationship Specialty Start Date End Date Elsewhere, Pcp PCP - General Internal Medicine 12/19/22 documented as of this encounter
--- OUTSIDE RECORDS SUMMARY | 2024-04-22 12:17 | XMS_ITS | Encounter Summary ---
Author Organization [facility] Address [address] [facility] [place] [address] Care Team Providers Care Leg Assembler Name Role Phone Anatoliy Jackson MD Primary Care Provider Heath More MD Unavailable Peter Gipson MD Unavailable Peter Mcmullen MD Unavailable [phone] Fidencio Solis MD Unavailable Hallie Maldonado APRN PHOTOGRAPHER AERIAL Unavailable [phone] Giuliana Gomez TELEVISION CAMERAMAN PHOTOGRAPHER AERIAL Unavailable Fidencio Solis MD Unavailable Giuliana Gomez APRN PHOTOGRAPHER AERIAL Unavailable [phone] Giuliana Gomez APRN PHOTOGRAPHER AERIAL Unavailable Fidencio Solis MD Unavailable Fidencio Solis MD Unavailable Reason for Referral * Diagnostic Imaging XR (Routine) - Closed Specialty Diagnoses / Procedures Referred By Contdolly t Referred To Contact Radiology. Diagnoses Right knee pain Procedures XR Knee Right 3 Views Peter Mcmullen MD [address] [place] [address] Rh Xray Rscc [address] [facility] [address] [place] [address] Referral ID Status Reason Start Date Expiration Date Visits Re quested Visits Authorized [id number] Closed 12/31/2020 12/31/2021 1 1 Reason for Visit * Reason Onset Date Comments Radiology Visit 12/31/2020 Xray Encounter Details Date Type Department Care Team (Late st Contact Info) Description 12/31/2020 Telephone [facility] [address] 4th [place] [address] Peter Mcmullen MD [address] [facility] [address] [place], [place] [phone] Radiology Visit (Xray) Social History Tobacco Use Types Packs/Day Years [...] CDT Gender Identity Male 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 No / Unsure 01/02/2021 2:52 PM CDT documented as of this encounter Miscellaneous Notes * Telephone Encounter - Sea Quinn RN - 01/01/2021 10:26 AM CDT Discussed with Dr. Mcmullen. He will call patient next week when he is back in clinic. X-rays are currently scheduled for , 01/03. Clayton Quinn RN * Telephone Encounter - Sea Quinn RN - 12/31/2020 3:37 PM CDT Called Pt back to discuss. Nothing mentioned in [place]. Hip better, right knee still bothering and more consistent. Pt reports that Dr. Mcmullen mentioned getting an XR of the knee to make sure not missing anything. Order was not placed, but this would be ok per standing orders. XR placed and called robert jadynling with Pt. Will send a message to Dr. Mcmullen, but I advised that it would be a good idea to schedule either a telephone follow up or in person so that he can look at the knee. Clayton Quinn RN * Telephone Encounter - Cuca Man - 12/31/2020 2:47 PM CDT Health Call Center Phone Message [...] on file documented as of this encounter Results * XR Knee Right 3 Views (01/02/2021 4:08 PM CDT) Anatomical Region Laterality Modality Thigh, Knee, Leg Right Radio Fluorosco py Impressions 01/02/2021 9:25 PM CDT IMPRESSION: ??Mild medial compartment narrowing with minimal hypertrophic change. Minimal hypertrophic change in the lateral and patellofemoral compartments. Normal patellar alignment. Small knee joint effusion. No fractures are evident. Atheromatous calcification. MAVERICK EGAN MD Narrative 01/02/2021 9:25 PM CDT XR KNEE RIGHT 3 VIEWS ??01/02/2021 4:08 PM HISTORY: Right knee pain COMPARISON: None. Procedure Note Maverick Egan MD - 01/02/2021 XR KNEE RIGHT 3 VIEWS 01/02/2021 4:08 PM HISTORY: Right knee pain COMPARISON: None. IMPRESSION: Mild medial compartment narrowing with minimal hypertrophic change. Minimal hypertrophic change in the lateral and patellofemoral compartments. Normal patellar alignment. Small knee joint effusion. No fractures are evident. Atheromatous calcification. MAVERICK EGAN MD Peter Mcmullen MD IMG DIAGNOSTIC I MAGING ORDERABLES documented in this encounter Visit Diagnoses Diagnosis Right knee pain- Primary Pain in joint, lower leg Right knee pain Pain in joint, lower leg documented in this encounter Care Teams Leg Assembler Relationship Specialty Start Date End Date Anatoliy Jackson MD PCP - General 05/14/12 Heath More MD [facility] CL[facility]IC [facility] [address] [facility] [address] [place] [phone] PCP - Internal Medicine INTERNAL MEDICINE - ENDOCRINOLOGY, DIABETES & METABOLISM 01/06/14 Peter Gipson MD [facility] UROLOGY [address] [place] [address] [address] [place] [address] PCP - Urology 04/02/15 Peter Mcmullen MD [address] [facility] [address] [place] [address] Assigned Musculoskeletal Provider 06/01/20 06/20/22 Fidencio Solis MD [address] [facility] [address] [place] [id number] Assigned Heart and Vascular Provider 12/16/20 02/21/21 Hallie Maldonado APRN PHOTOGRAPHER AERIAL [address] [place] [address] Assigned Heart and Vascular Provider 02/22/21 05/18/21 Giuliana Gomez APRN PHOTOGRAPHER AERIAL [address] [place] [address] Assigned Heart and Vascular Provider 05/19/21 06/15/21 Fidencio Solis MD [address] [place] [address] Assigned Heart and Vascular Provider 06/16/21 06/29/21 Giuliana Gomez APRN PHOTOGRAPHER AERIAL [address] [place] [address] Assigned Heart and Vascular Provider 06/30/21 07/18/22 Giuliana Gomez APRN PHOTOGRAPHER AERIAL [address] [place], [place] [id number] Nurse Practitioner Cardiovascular Disease 08/21/21 Fidencio Solis MD [address] [place] [address] Cardiovascular Disease 08/21/21 Fidencio Solis MD [address] [place] [address] Assigned Heart and Vascular Provider 07/19/22 04/17/23 documented as of this encounter
--- OUTSIDE RECORDS SUMMARY | 2024-04-22 12:17 | XMS_ITS | Encounter Summary ---
Author Organization [facility] Address [address] [facility] [place] [address] Care Team Providers Care Body Care Manager Name Role Phone Anatoliy Jackson MD Primary Care Provider Heath More MD Unavailable [phone] Peter Gipson MD Unavailable [facility] MD Unavailable [phone] Hallie Maldonado APRN VP OF MARKETING Unavailable Giuliana Gomez APRN VP OF MARKETING Unavailable [phone] Fidencio Solis MD Unavailable Giuliana Gomez APRN VP OF MARKETING Unavailable [phone] Giuliana Gomez APRN VP OF MARKETING Unavailable [phone] Fidencio Solis MD Unavailable Fidencio Solis MD Unavailable Encounter Details Date Type Department Care Team (Late st Contact Info) Description 04/27/2021 Documentation Only INTERFACED REPORT Unknown, [...] CDT Gender Identity Male 10/20/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 No / Unsure 04/28/2021 3:08 PM CDT documented as of this encounter Plan of Treatment Not on file documented as of this encounter Visit Diagnoses Not on filedocumented in this encounter Care Teams Body Care Manager Relationship Specialty Start Date End Date Anatoliy Jackosn MD PCP - General 05/14/12 Heath More MD [facility]INE CL[facility]IC [facility] [address] [facility] [address] [place] [phone] PCP - Internal Medicine INTERNAL MEDICINE - ENDOCRINOLOGY, DIABETES & METABOLISM 01/06/14 Peter Gipson MD [facility] UROLOGY [address] [place] [address] [address] [place] [address] PCP - Urology 04/02/15 Peter Mcmullen MD [address] [place] [address] [address] [place] [address] Assigned Musculoskeletal Provider 06/01/20 06/20/22 Hallie Maldonado APRN VP OF MARKETING [address] [place] [address] Assigned Heart and Vascular Provider 02/22/21 05/18/21 Giuliana Gomez APRN VP OF MARKETING [address] [place] [address] Assigned Heart and Vascular Provider 05/19/21 06/15/21 Fidencio Solis MD [address] [place] [address] Assigned Heart and Vascular Provider 06/16/21 06/29/21 Giuliana Gomez APRN VP OF MARKETING [address] [place] [address] Assigned Heart and Vascular Provider 06/30/21 07/18/22 Giuliana Gomez APRN VP OF MARKETING [address] [place], [place] [address] Nurse Practitioner Cardiovascular Disease 08/21/21 Fidencio Solis MD [address] [place] [address] Cardiovascular Disease 08/21/21 Fidencio Solis MD [address] [place] [address] Assigned Heart and Vascular Provider 07/19/22 04/17/23 documented as of this encounter
--- OUTSIDE RECORDS SUMMARY | 2024-04-22 12:18 | XMS_ITS | Encounter Summary ---
Author Organization [place] Address [address] [place] [address] Care Team Providers Care Rolls Baker Name Role Phone Clinic, [facility] [place] Primary Care Provider Anatoliy Jackson MD Primary Care Provider Heath Tate MD Unavailable [phone] Peter Gipson MD Unavailable [phone] Peter Aguiar MD Unavailable Unavail [facility] Peter Mcmullen MD Unavailable [phone] Fidencio Solis MD Unavailable Hallie Maldonado HEALTH ADMINISTRATOR ROLLER EMBOSSER Unavailable [phone] Giuliana Gomez APRN ROLLER EMBOSSER Unavailable [phone] Fidencio Solis MD Unavailable Giuliana Gomez APRN ROLLER EMBOSSER Unavailable [phone] Giuliana Gomez APRN ROLLER EMBOSSER Unavailable [phone] Fidencio Solis MD Unavailable Fidencio Solis MD Unavailable Encounter Details Date Type Department Care Team (Late st Contact Info) Description 04/19/2012 Office Visit-[facility] [address] [place] [phone] Sriniwillie Hyacinth KiaraDO [address] [place] [id number] Social History Tobacco Use Types Packs/Day Years Used Date Smoking Tobacco: Never Alcohol Use Standard Drinks/Week Comments Yes 0 (1 standard drink = 0.6 oz pur e alcohol) occasionally Sex and Gender Information Value Date Recorded Sex Assigned at Male 03/12/2021 12:11 PM CDT Gender Identity Male 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 He is here for a follow-up visit today. He had symptoms of shortness of breath and last year in January we asked him to undergo a Cardiolite stress test. That did demonstrate mild ischemia in the territory of the inferior wall, although therewas bowel artifact that decreased the specificity of the finding. The area represented less than 10% of the total myocardium. We elected to treat him medically and work to aggressively control his risk factors. Over the past year, he states his breathing has not been much of an issue. He is active.It sounds like he has been doing some [...] at. He also mentions that it feels like he has to belch. He does not note any exacerbating or relieving factors. It does not seem to be related to exertion. He recalls one episode where it was quite severe. He felt that eating did help to alleviate it. He has not tried any self remedies surprisingly, such as Tums or Maloox or igje-eca-uyaqhih acid suppressant or even nitroglycerin for this. He says it lasts anywhere from a few minutes to an hour and subsides on its own. It has been occurring quite frequently, almost everyday this spring, maybe a little less so this summer. He denies any associated symptoms, specifically denying shortness of breath, palpitations, lightheadedness, nausea. He has seen [...] arterial duplex and aortoiliac duplex, 10/19 renal arteryUS Peripheral Vasc Procedure Results: 01/18 ABIs-normal RY [...] Sedentary Life Style:negative; Age:positive ; LDL Goal <LT> 100 SOCIAL HISTORY Alcohol Use - drinks rarely; Smoking - never smoked; Diet - caffeine use-3-4 per day, low fat Diet and less salt; Lifestyle - ; Exercise - no regular exercise and didn't want to be part of walking program; Residence - lives in [place] year round; Place of - [place]; REVIEW OF SYSTEMS GENERAL denies recent weight [...] of heartburn, such as Maalox, Tums or ztdr-yar-mavcdjq acid suppressant. If these are ineffective, he should also try nitroglycerin. He should not let his symptoms continue for more than an hour without seeking medical evaluation. I did caution him to stop both his cilostazol and metoprolol in advance of the stress test in hopes to get an adequatestress test and we will have him follow [...] on filedocumented in this encounter Care Teams Rolls Baker Relationship Specialty Start Date End Date [facility], [facility] [address] [address] PCP - General 08/21/11 05/13/12 [place] [address] [address] [place] [address] PCP - General 05/14/12 Heath Tate MD [facility]IC [facility] [address] [facility] [address] [place] [phone] PCP - Internal Medicine INTERNAL MEDICINE - ENDOCRINOLOGY, DIABETES & METABOLISM 01/06/14 Peter Gipson MD [facility] [address] [place] [address] PCP - Urology 04/02/15 Peter Aguiar MD Assigned Heart and Vascular Provider 06/01/20 12/15/20 Peter Mcmullen MD [address] [place] [address] Assigned Musculoskeletal Provider 06/01/20 06/20/22 Fidencio Solis MD [address] [place], [place] [id number] Assigned Heart and Vascular Provider 12/16/20 02/21/21 Hallie Maldonado APRN ROLLER EMBOSSER [address] [place] [address] Assigned Heart and Vascular Provider 02/22/21 05/18/21 Giuliana Gomez APRN ROLLER EMBOSSER [address] [place] [address] Assigned Heart and Vascular Provider 05/19/21 06/15/21 Fidencio Solis MD [address] [place] [address] Assigned Heart and Vascular Provider 06/16/21 06/29/21 Giuliana Gomez APRN ROLLER EMBOSSER [address] [place] [address] Assigned Heart and Vascular Provider 06/30/21 07/18/22 Giuliana Gomez APRN ROLLER EMBOSSER [address] [place] [address] Nurse Practitioner Cardiovascular Disease 08/21/21 Fidencio Solis MD [address] [place] [address] Cardiovascular Disease 08/21/21 Fidencio Solis MD [address] [place] [address] Assigned Heart and Vascular Provider 07/19/22 04/17/23 documented as of this encounter
--- OUTSIDE RECORDS SUMMARY | 2024-04-22 12:18 | XMS_ITS | Encounter Summary ---
Author Organization [place] Address [address] [place] [address] Care Team Providers Care Supervisor Bleach Plant Name Role Phone Eliza Jackson MD Primary Care Provider [phone] Heath More MD Unavailable [phone] Peter Gipson MD Unavailable [phone] Peter Aguiar MD Unavailable Unavail [facility] Peter Mcmullen MD Unavailable [phone] Fidencio Solis MD Unavailable Hallie Maldonado APRN IN SERVICE EDUCATOR Unavailable [phone] Giuliana Gomez APRN IN SERVICE EDUCATOR Unavailable [phone] Fidencio Solis MD Unavailable Giuliana Gomez APRN IN SERVICE EDUCATOR Unavailable [phone] Giuliana Gomez APRN IN SERVICE EDUCATOR Unavailable [phone] Fidencio Solis MD Unavailable Fidencio Solis MD Unavailable Encounter Details Date Type Department Care Team (Late st Contact Info) Description 08/12/2012 Office Visit-[facility] [place] [address] [facility] [address] [place] [phone] Hyacinth Plummer DO [address] [place] [address] Social History Tobacco Use Types Packs/Day Years Used Date Smoking Tobacco: Never Alcohol Use Standard Drinks/Week Comments Yes 0 (1 standard drink = 0.6 oz pur e alcohol) occasionally Sex and Gender Information Value Date Recorded Sex Assigned at Male 03/12/2021 12:11 PM CDT Gender Identity Male 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 DATE: 08/12/2012 NIKITA ANDERSON DATE OF : 1950 AGE: [age] years old Referring Physician: ELIZA JACKSON Referring Clinic: [facility] CURRENT DIAGNOSES 1. - Shortness of Breath, [...] suggesting perfusion defect in the inferior wall. Hismost recent stress test in April of this year suggested possible progression of disease to basal inferior infarction and mild left ventricular dysfunction. A follow-up transthoracic echocardiogram, however, did not confirm this. He had no evidence of regional wall motion abnormality on echocardiogram and his ejection fraction was calculated at 55 to 60%. Mr. Anderson tells me that in the past few months he has not had any difficulty with recurrent chest burning. [place] and did not have any difficulty with his breathing or with burning or discomfort in his chest with these activities. He typically is more active in the warmer months, less active in the winter months, therefore, he is not certain of his breathing, whether that haschanged at all, but again did not have much difficulty up in the mountains. He does believe that oncilostazol that his legs have improved and he [...] He has not had a repeat cholesterol profilesince being off of this medication, but is scheduled to see Dr. More in the upcoming months with a cholesterol profile. If he does have increased triglycerides off of this medication I think thiswould be an appropriate time to try him on Lovaza or fpsw-jgv-lvdkahz fish oil capsules. Recent studies have indicated that niacin, while improving triglycerides and HDL profile has not resulted in adecrease in overall morbidity or mortality from cardiovascular events. Mr. Anderson [...] 2011, echocardiogram , myocardial perfusion (Nuc) Apr 2012 Vascular Procedures-Noninvasive: [...] no regular exercise; Residence - lives in [place] year round; Place of - [place]; REVIEW OF SYSTEMS GENERAL pt doesn't have [...] or inferior ischemia, however, this has been housing management representative less than 10% of total myocardial area. He has actually seen an improvement in his symptoms ov er the past few months without recurrence of chest burning or diminished breathing capacity. At this time I will recommend continued medical management with improvements in his aerobic activities foroverall cardiovascular benefit and weight loss. He should [...] April with repeat nuclear stress test. I am asking him to have this performed in our clinic in [place]. With our new camera we have drastic reduction in radiation dose and also improvement in defining the inferior wall in males andtherefore I think we will have a much [...] 1. Treadmill Nuclear Study 9 mos IN [place] ONLYIF MD Elmer able to convert to pharm stress if pt unable to exercise 2. Return Visit 9 months C. Kiara Plummer D.O. documented in this encounter Plan of Treatment Not on file documented as of this encounter Visit Diagnoses Not on filedocumented in this encounter Care Teams Supervisor Bleach Plant Relationship Specialty Start Date End Date Eliza Jackson MD PCP - General 05/14/12 Heath More MD [facility]CRINE CLINIC [facility] [address] [facility] [address] [place] [address] PCP - Internal Medicine INTERNAL MEDICINE - ENDOCRINOLOGY, DIABETES & METABOLISM 01/06/14 Peter Gipson MD [facility] [address] [facility] [address] [place], [place] [id number] PCP - Urology 04/02/15 Peter Aguiar MD Assigned Heart and Vascular Provider 06/01/20 12/15/20 Peter Mcmullen MD [address] [facility] [address] [place], [place] [address] Assigned Musculoskeletal Provider 06/01/20 06/20/22 Fidencio Solis MD [address] [place] [address] Assigned Heart and Vascular Provider 12/16/20 02/21/21 Hallie Maldonado APRN IN SERVICE EDUCATOR [address] [place] [address] Assigned Heart and Vascular Provider 02/22/21 05/18/21 Giuliana Gomez APRN IN SERVICE EDUCATOR [address] [place] [address] Assigned Heart and Vascular Provider 05/19/21 06/15/21 Fidencio Solis MD [address] [place] [address] Assigned Heart and Vascular Provider 06/16/21 06/29/21 Giuliana Gomez APRN IN SERVICE EDUCATOR [address] [place] [address] Assigned Heart and Vascular Provider 06/30/21 07/18/22 Giuliana Gomez APRN IN SERVICE EDUCATOR [address] [place] [address] Nurse Practitioner Cardiovascular Disease 08/21/21 Fidencio Solis MD [address] [place] [address] Cardiovascular Disease 08/21/21 Fidencio Solis MD [address] [place] [address] Assigned Heart and Vascular Provider 07/19/22 04/17/23 documented as of this encounter
--- OUTSIDE RECORDS SUMMARY | 2024-04-22 12:18 | XMS_ITS | Data Portability ---
Author Organization [facility] Address [address] [place] [address] Care Team Providers Care Change Management Expert Name Role Phone ELIZA PATTEN Primary Care Provider [phone] Assessment Encounter Date Assessment Date Assessment LastModified by Organization Details LastModified Time 02/16/2020 02/16/2020 Reviewed prior patient records and PSA. Not available 02/16/2020 11:01:21 Plan of Treatment Reminders Order Date Submit Date Provider Last Modified By Organization Details Last Modified Time Details Appointments ESTABLISH ED 15 2024 10:25A M Not available Not available Not available Lab urinalysi s, dipstick [address] [facility], [address], [address], [address], 08/22/2020 12:29:19 urinalysi s, dipstick [address] [facility], [address], [address], [place], [address], 09/12/2021 15:18:05 urinalysi s, dipstick [address] [facility], [address], [address], [place], [address], 09/11/2022 12:06:45 urinalysi s, dipstick [address] [facility], [address], [address], [place], [address], 09/09/2023 13:10:48 urinalysi s, microscop ic [address] [facility], [address], [address], [place], [address], 03/13/2024 05:01:03 Referral None recorded. Procedures None recorded. Surgeries None recorded. Imaging MRI, prostate, w/wo contrast - tiny focus of prostate cancer in simple prostatec sarkis tissue in 2016, PSA <0.2 ng/mL since, on active surveilla nce 2020 021 [facility], [address] [place], [address], 08/22/2020 13:05:45 MRI, prostate, w/wo contrast - prostate cancer on active surveilla nce, he has an MRI condition al pacemaker , please call patient to schedule 2022 023 [facility], [address] [facility] [facility] [place], [address], 01/13/2023 17:05:58 Medication Orders None recorded. Patient TargetsNo targets recorded. Patient Instructions Encounter Date Encounter Id Patient Instructions Last Modified By Organization Details Last Modified Time 02/16/2020 [id number] BPH/prostate cancer: He's voiding well and without concerns. He does have prostate cancer and is on an active surveillance protocol given how small amount of cancer was present. His PSA is low and stable. Will get a PSA in 6 months and see him back for a physical exam. Will likely consider a prostate MRI at the next visit. Not available 02/16/2020 11:02:09 08/22/2020 [id number] BPH/nocturia: He 's voiding well since his simple prostatectomy. The nocturia ( night time voiding) may be due to sleep apnea. I encouraged him to look into testing for sleep apnea. Prostate cancer: His PSA is low and stable. He's on an active surveillance protocol for his prostate cancer. Will continue to check his PSA every 6 months. Will get a prostate MRI and call with results. I'll plan on seeing him back in 1 year. Not available 08/22/2020 12:48:42 09/12/2021 [id number] BPH: He's voidin g very well. Will continue to monitor symptoms. Prostate cancer: His PSA is low and stable. I believe that the detectble PSA is due residual benign prostate tissue from his robotic simple prostatectomy. No hard tissue felt on his prostate on exam. Will continue to check his PSA every 6 months. I'll see him back in 1 year. Not available 09/12/2021 15:39:42 09/11/2022 [id number] Prostate cancer: His PSA is good and stable. I do not feel any hard areas on his prostate on exam. Will get a prostate MRI as his last one was 2 years ago. Will contact with results. Will continue to follow his PSA every 6 months. BPH/frequency: He's having more frequency during the morning. Cystoscopy today did not show any significant regrowth or obstruction of his prostate. Discussed that frequency can be affected by his bowel and pelvic floor. He's ok with his current status. Will continue to follow. Not available 09/11/2022 12:01:47 09/09/2023 [id number] BPH/frequency: He's voiding well and without bother. Prostate cancer: Small focus of GG1 seen on robotic simple prostatectomy in 2016. His PSA has been low and stable for many years. No nodules felt on exam. Will continue with checking the PSA every 6 months and I'll see him back in 1 year. Not available 09/09/2023 12:53:37 Reason for Referral None Reported. Results Created Date Observation Date Name Description Value Unit Range Abnormal Flag Note LastModifiedBy Organization Detail LastModifiedTime 08/16/19 21 08/16/2020 PSA, total , serum or plasm a PSA 0.10 Not Available Not Availa ble 08/18/2020 05:12:45 08/22/19 21 08/22/2020 urina lysis , dipst ick color -advantus YELLOW yellow Not Available [facility] [address], [place], [address], 08/22/2020 12:29:18 08/22/19 21 08/22/2020 urina lysis , dipst ick appearance -advantus CLEAR clear Not Available [facility] [address] [place] [address] [address], [place], [address], 08/22/2020 12:29:18 08/22/19 21 08/22/2020 urina lysis , dipst ick glucose -advantus NEGATI VE mg/dL negati ve Not Available [facility] [address] [place] [address] [address], [place], [address], 08/22/2020 12:29:18 08/22/19 21 08/22/2020 urina lysis , dipst ick bilirubin -advantus NEGATI VE negati ve Not Available [facility] [address] [place] [address] [address], [place], [address], 08/22/2020 12:29:18 08/22/19 21 08/22/2020 urina lysis , dipst ick ketones -advantus NEGATI VE mg/dL negati ve Not Available [facility] [address] [place] [address] [address], [place], [address], 08/22/2020 12:29:18 08/22/19 21 08/22/2020 urina lysis , dipst ick sp. gravity -advantus 1.025 1.010- 1.025 Not Available [facility] [address] [place] [address] [address], [place], [address], 08/22/2020 12:29:18 08/22/19 21 08/22/2020 urina lysis , dipst ick pH -advantus 5.0 5.0-8. 0 Not Available [facility] [address] [place] [address] [address], [place], [address], 08/22/2020 12:29:18 08/22/19 21 08/22/2020 urina lysis , dipst ick protein -advantus NEGATI VE mg/dL negati ve Not Available [facility] [address] [place] [address] [address], [place], [address], 08/22/2020 12:29:18 08/22/19 21 08/22/2020 urina lysis , dipst ick urobilinogen -advantus 0.2 normal Not Available [facility] [address] [place] [address] [address], [place], [address], 08/22/2020 12:29:18 08/22/19 21 08/22/2020 urina lysis , dipst ick nitrites -advantus NEGATI VE negati ve Not Available [facility] [address] [place] [address] [address], [place], [address], 08/22/2020 12:29:18 08/22/19 21 08/22/2020 urina lysis , dipst ick blood -advantus NEGATI VE negati ve Not Available [facility] [address] [place] [address] [address], [place], [address], 08/22/2020 12:29:18 08/22/1908/22/2020 urina lysis , dipst ick leukocytes -advantus NEGATI VE negati ve Not Available [facility] [address] [place] [address] [address], [place], [address], 08/22/2020 12:29:18 08/22/1908/22/2020 urina lysis , dipst ick performed by Sukh Beyer Not Available [facility] [address] [place] [address] [address], [place], [address], 08/22/2020 12:29:18 08/22/1908/22/2020 urina lysis , dipst ick total urine volume (mL) 50 /mL ----- ----- ----- ----- ----- ----- ----- ----- ----- ----- ----- ----- ----- ----- ---- *Cat bailey note the follo wing minim um quant ities for addit ional urine testi ng: - Atypi cals: 3 mL - Cytol ogy: 20 mL - GC/CH : 2 mL - FISH: 30 mL - Atypi cals w/ GC/CH : 5 mL - Cytol ogy PLUS FISH: 50 mL - Urine Cultu re: 3 mL ----- ----- ----- ----- ----- ----- ----- ----- ----- ----- ----- ----- ----- ----- ---- Not Available [facility] [address] [address], [place], [address], 08/22/2020 12:29:18 01/11/20 21 01/10/2021 PSA, total , serum or plasm a PSA 0.11 Not Available Not Availa ble 01/21/2021 11:42:57 08/23/19 22 08/23/2021 PSA, total , serum or plasm a PSA 0.09 Not Available Not Availa ble 08/24/2021 05:16:16 09/12/19 22 09/12/[address] [facility] MICRO [facility] color-status Yellow yellow Not Available [facility] [address] [facility] [address], [place], [address], 09/12/2021 15:18:05 09/12/19 22 09/12/[address] [facility] UT [facility]CRO [facility] clarity-stat us Clear clear Not Available [facility] [address] [facility] [address], [place], [address], 09/12/2021 15:18:05 09/12/19 22 09/12/[address] [facility] UT MICRO [facility] glucose-stat us Negati ve mg/dL negati ve Not Available [facility] [address] [facility] [address], [place], [address], 09/12/2021 15:18:05 09/12/19 22 09/12/[address] [facility] UT [facility]CRO [facility] bilirubin-ur ine Negati ve negati ve Not Available [facility] [address] [facility] [address], [place], [address], 09/12/2021 15:18:05 09/12/19 22 09/12/[address] [facility] UT [facility] ketones-stat us Negati ve mg/dL negati ve Not Available [facility] [address] [facility] [address], [place], [address], 09/12/2021 15:18:05 09/12/19 22 09/12/[address] [facility] [facility]CRO [facility] SG-status 1.015 1.00-1 .03 Not Available [facility] [address] [place] [address] [address], [place], [address], 09/12/2021 15:18:05 09/12/19 22 09/12/[address] [facility] UT MICRO [facility] pH-status 5.0 5.00-8 .00 Not Available [facility] [address] [place] [address] [address], [place], [address], 09/12/2021 15:18:05 09/12/19 22 09/12/[address] [facility] UT MICRO [facility] protein-stat us Trace mg/dL negati ve abnormal Not Available [facility] [address] [facility] [address], [place], [address], 09/12/2021 15:18:05 09/12/19 22 09/12/[address] [facility] UT [facility]CRO [facility] urobilinogen -status 0.2 E.U./d L E.U./ dL 0.2 E.U./d L Not Available [facility] [address] [place] [address] [address], [place], [address], 09/12/2021 15:18:05 09/12/19 22 09/12/[address] [facility] UT [facility]CRO [facility] nitrites-sta tus Negati ve negati ve Not Available [facility] [address] [facility] [address], [place], [address], 09/12/2021 15:18:05 09/12/19 22 09/12/[address] [facility] UT [facility] blood-urine Negati ve negati ve Not Available [facility] [address] [facility] [address], [place], [address], 09/12/2021 15:18:05 09/12/19 22 09/12/[address] [facility] UT [facility]CRO [facility] leuko-status Negati ve negati ve Not Available [facility] [address] [facility] [address], [place], [address], 09/12/2021 15:18:05 09/12/19 22 09/12/[address] [facility] UT MICRO [facility] performed by Marisel Pryor Not Available [facility] [address] [facility] [address], [place], [address], 09/12/2021 15:18:05 09/12/19 22 09/12/[address] [facility] UT [facility]CRO [facility] total urine volume (mL) 80 /mL ----- ----- ----- ----- ----- ----- ----- ----- ----- ----- ----- ----- ----- ----- ---- *Plea se note the follo wing minim um quant ities for addit ional urine testi ng: - Atypi cals: 3 mL - Cytol ogy: 20 mL - GC/CH : 2 mL - FISH: 30 mL - Atypi cals w/ GC/CH : 5 mL - Cytol ogy PLUS FISH: 50 mL - Urine Cultu re: 3 mL ----- ----- ----- ----- ----- ----- ----- ----- ----- ----- ----- ----- ----- ----- ---- Not Available [facility] [address] [facility] [address], [place], [address], 09/12/2021 15:18:05 01/18/20 22 01/17/2022 PSA, total , serum or plasm a PSA 0.08 Not Available [facility] [address], [place], [address], 01/18/2022 05:16:17 08/26/19 23 08/26/2022 PSA, total , serum or plasm a PSA 0.1 Not Available Not Availa ble 08/29/2022 13:10:43 09/11/19 23 09/11/2022 UA DIP CS STATU S color -advantus YELLOW yellow Not Available [facility] [address] [facility] [address], [place], [address], 09/11/2022 12:06:45 09/11/19 23 09/11/2022 UA DIP CS STATU S appearance -advantus CLEAR clear Not Available [facility] [address] [facility] [address], [place], [address], 09/11/2022 12:06:45 09/11/19 23 09/11/2022 UA DIP CS STATU S glucose -advantus NEGATI VE mg/dL negati ve Not Available [facility] [address] [facility] [address], [place], [address], 09/11/2022 12:06:45 09/11/19 23 09/11/2022 UA DIP CS STATU S bilirubin -advantus NEGATI VE negati ve Not Available [facility] [address] [facility] [address], [place], [address], 09/11/2022 12:06:45 09/11/19 23 09/11/2022 UA DIP CS STATU S ketones -advantus NEGATI VE mg/dL negati ve Not Available [facility] [address] [facility] [address], [place], [address], 09/11/2022 12:06:45 09/11/19 23 09/11/2022 UA DIP CS STATU S sp. gravity -advantus 1.015 1.010- 1.025 Not Available [facility] [address] [facility] [address], [place], [address], 09/11/2022 12:06:45 09/11/19 23 09/11/2022 UA DIP CS STATU S pH -advantus 5.0 5.0-8. 0 Not Available [facility] [address] [place] [address] [address], [place], [address], 09/11/2022 12:06:45 09/11/19 23 09/11/2022 UA DIP CS STATU S protein -advantus NEGATI VE mg/dL negati ve Not Available [facility] [address] [facility] [address], [place], [address], 09/11/2022 12:06:45 09/11/19 23 09/11/2022 UA DIP CS STATU S urobilinogen -advantus 0.2 0.2 E.U./d L Not Available [facility] [address] [place] [address] [address], [place], [address], 09/11/2022 12:06:45 09/11/19 23 09/11/2022 UA DIP CS STATU S nitrites -advantus NEGATI VE negati ve Not Available [facility] [address] [place] [address] [address], [place], [address], 09/11/2022 12:06:45 09/11/19 23 09/11/2022 UA DIP CS STATU S blood -advantus NEGATI VE negati ve Not Available [facility] [address] [facility] [address], [place], [address], 09/11/2022 12:06:45 09/11/19 23 09/11/2022 UA DIP CS STATU S leukocytes -advantus NEGATI VE negati ve Not Available [facility] [address] [facility] [address], [place], [address], 09/11/2022 12:06:45 09/11/19 23 09/11/2022 UA DIP CS STATU S performed by LOLIS Hernandez Not Available [facility] [address] [facility] [address], [place], [address], 09/11/2022 12:06:45 09/11/19 23 09/11/2022 UA DIP CS STATU S total urine volume (mL) 100 /mL ----- ----- ----- ----- ----- ----- ----- ----- ----- ----- ----- ----- ----- ----- ---- *Cat bailey note the follo wing minim um quant ities for addit ional urine testi ng: - Atypi cals: 3 mL - Cytol ogy: 20 mL - GC/CH : 2 mL - FISH: 30 mL - Atypi cals w/ GC/CH : 5 mL - Cytol ogy PLUS FISH: 50 mL - Urine Cultu re: 3 mL ----- ----- ----- ----- ----- ----- ----- ----- ----- ----- ----- ----- ----- ----- ---- This lab resul t is being provi ded to you and your provi lala at the same time in compl iance with the Centu ry Cures Act. Your provi lala may not have had time to revie w and make recom menda tions based on the resul t. Savannah tapia allow up to one week for provi lala revie w. Not Available [facility] [address] [facility] [address], [place], [address], 09/11/2022 12:06:45 08/21/19 24 08/21/2023 PSA, total , serum or plasm a PSA 0.10 Not Available Not Availa ble 09/02/2023 12:32:31 09/09/19 24 09/09/2023 UA WITHO UT MICRO - CS URISC AN blood - uriscan NEGATI VE negati ve Not Available [facility] [address] [place] [address] [address], [place], [address], 09/09/2023 13:10:48 09/09/19 24 09/09/2023 UA WITHO UT MICRO - CS URISC AN bilirubin - uriscan NEGATI VE mg/dL negati ve Not Available [facility] [address] [place] [address] [address], [place], [address], 09/09/2023 13:10:48 09/09/19 24 09/09/2023 UA WITHO UT MICRO - CS URISC AN urobilinogen - uriscan NORMAL mg/dL normal Not Available [facility] [address] [facility] [address], [place], [address], 09/09/2023 13:10:48 09/09/19 24 09/09/2023 UA WITHO UT MICRO - CS URISC AN ketones - uriscan NEGATI VE mg/dL negati ve Not Available [facility] [address] [place] [address] [address], [place], [address], 09/09/2023 13:10:48 09/09/19 24 09/09/2023 UA WITHO UT MICRO - CS URISC AN protein - uriscan NEGATI VE mg/dL negati ve Not Available [facility] [address] [place] [address] [address], [place], [address], 09/09/2023 13:10:48 09/09/19 24 09/09/2023 UA WITHO UT MICRO - CS URISC AN nitrites - uriscan NEGATI VE negati ve Not Available [facility] [address] [facility] [address], [place], [address], 09/09/2023 13:10:48 09/09/19 24 09/09/2023 UA WITHO UT MICRO - CS URISC AN glucose - uriscan NEGATI VE mg/dL negati ve Not Available [facility] [address] [place] [address] [address], [place], [address], 09/09/2023 13:10:48 09/09/19 24 09/09/2023 UA WITHO UT MICRO - CS URISC AN pH - uriscan 5.00 5.00-9 .00 Not Available [facility] [address] [place] [address] [address], [place], [address], 09/09/2023 13:10:48 09/09/19 24 09/09/2023 UA WITHO UT MICRO - CS URISC AN sp. gravity - uriscan 1.02 1.01-1 .03 Not Available [facility] [address] [place] [address] [address], [place], [address], 09/09/2023 13:10:48 09/09/19 24 09/09/2023 UA WITHO UT MICRO - CS URISC AN leukocytes - uriscan NEGATI VE negati ve Not Available [facility] [address] [place] [address] [address], [place], [address], 09/09/2023 13:10:48 09/09/19 24 09/09/2023 UA WITHO UT MICRO - CS URISC AN color - uriscan YELLOW lt. yellow ;yello w Not Available [facility] [address] [place] [address] [address], [place], [address], 09/09/2023 13:10:48 09/09/19 24 09/09/2023 UA WITHO UT MICRO - CS URISC AN clarity - uriscan CLEAR clear Not Available [facility] [address], [place], [address], 09/09/2023 13:10:48 09/09/19 24 09/09/2023 UA WITHO UT MICRO - CS URISC AN total urine volume (mL) 40 /mL ----- ----- ----- ----- ----- ----- ----- ----- ----- ----- ----- ----- ----- ----- ---- *Cat bailey note the follo wing minim um quant ities for addit ional urine testi ng: - Atypi cals: 3 mL - Cytol ogy: 20 mL - GC/CH : 2 mL - FISH: 30 mL - Atypi cals w/ GC/CH : 5 mL - Cytol ogy PLUS FISH: 50 mL - Urine Cultu re: 3 mL ----- ----- ----- ----- ----- ----- ----- ----- ----- ----- ----- ----- ----- ----- ---- This lab resul t is being provi ded to you and your provi lala at the same time in compl iance with the 21st Centu ry Cures Act. Your provi lala may not have had time to revie w and make recom menda tions based on the resul t. Savannah tapia allow up to one week for provi lala revie w. Not Available [facility] [address] [facility] [address], [place], [address], 09/09/2023 13:10:48 09/26/19 21 09/26/2020 XR, orbit No observ ation record ed. [facility] [address], [place], [address], 09/26/2020 15:39:09 09/27/19 21 09/26/2020 MRI, prost ate, w/wo contr ast No observ ation record ed. [facility] [address], [place], [address], 09/27/2020 17:42:09 01/14/20 23 01/13/2023 MRI, prost ate, w/wo contr ast No observ ation [facility] [address] [place], [address], 01/16/2023 13:46:26 Result Notes None recorded. Problems Name Problem SNOMED Code Status Onset Date Resolution Date Notes Provider Name and Address Organization Details Recorded Time Increased frequency of urination 704242698 Active 2015 R35.0 : Increased frequency of urination Not Available [facility] 0 00:06:54 Malignant tumor of prostate 228354377 Active 2015 C61 : Malignant tumor of prostate Not Available [facility] 0 00:06:54 Micturiti on finding Active 2015 R32 : Urinary incontine nce Not Available [facility] 0 00:06:55 Chronic prostatit is 59537357 Active 2015 N41.1 : Chronic prostatit is Not Available [facility] 0 00:06:55 Prostate specific antigen above reference range 107898887 Active 2015 R97.2 : Raised prostate specific antigen Not Available [facility] 0 00:06:55 History of malignant neoplasm of prostate 969050209 Active 2016 Z85.46 : History of malignant neoplasm of prostate Not Available [facility] 0 00:06:55 Erectile dysfuncti on co-occurr ent and due to arterial insuffici ency 88264123522 9107 Active 2016 N52.01 : Erectile dysfuncti on co-occurr ent and due to arterial insuffici ency Not Available [facility] 0 00:06:55 Clinical finding Active 2015 N40.1 : Desire for urination Not Available [facility] 0 00:06:55 Procedure on genitouri nary system Active 2015 Z48.816 : Procedure on genitouri nary system Not Available [facility] 0 00:06:55 Postopera tive care Active 2015 Z48.816 : Procedure on genitouri nary system Not Available [facility] 0 00:06:55 Genuine stress incontine nce 48381271 Active 2016 N39.3 : Genuine stress incontine nce Not Available [facility] 0 00:06:55 Diabetes mellitus 44238162 Active 2020 Kiara trujillo [facility] 1 12:18:49 Benign prostatic hyperplas ia with outflow obstructi on 096802791 Active 2020 Peter Gipson MD [address] [place] [address],[address], [address] , [facility] 1 12:44:55 Nocturia 577433311 Active 2020 Peter Gipson MD [address] [place] [address],[address], [address] , [facility] 1 12:45:35 Problem Notes None recorded. Procedures Surgical History Date Name Laterality Status Provider Name and Address Organization Details Recorded Time 09/09/19 24 Bladder Scan completed Anabela trujillo [facility] 09/09/2023 12:46:38 09/11/19 23 Cystoscopy- male completed Peter Gipson MD [address] [place] [address],[address], [address], [facility] 09/11/2022 12:01:03 09/11/19 23 Bladder Scan completed Peter Gipson MD [address] [place] [address],[address], [address], [facility] 09/11/2022 11:42:48 09/12/19 22 Bladder Scan completed Kiara trujillo [facility] 09/12/2021 15:23:28 01/13/20 21 Occult blood feces completed Not Available [facility] 09/10/2021 19:26:52 08/22/19 21 Bladder Scan completed Kiara trujillo [facility] 08/22/2020 12:22:35 07/29/20 19 Us urine capacity measure completed Not Available [facility] Note 09/10/2021 19:26:52 09/30/19 19 Colonoscopy completed Mariposa Patelcatherine trujillo [facility] 10/08/2022 11:48:17 07/14/20 18 Us urine capacity measure completed Not Available [facility] Note 09/10/2021 19:26:52 07/24/20 16 Cystoscopy completed Not Available [facility] Note 09/10/2021 19:26:52 04/23/20 16 Unlisted px male genital sys completed Not Available [facility] Note 09/10/2021 19:26:52 01/02/20 16 Us urine capacity measure completed Not Available [facility] Note 09/10/2021 19:26:52 11/29/19 16 Us urine capacity measure completed Not Available [facility] Note 09/10/2021 19:26:52 11/23/19 16 Us urine capacity measure completed Not Available Health Note 09/10/2021 19:26:52 10/29/19 16 Biopsy of prostate completed Not Available Health Note 09/10/2021 19:26:52 10/29/19 16 Njx aa&/strd other pn/branch completed Not Available Health Note 09/10/2021 19:26:52 10/05/19 16 Us urine capacity measure completed Not Available Health Note 09/10/2021 19:26:52 04/09/20 15 Repair arterial blockage completed Not Available Health Note 09/10/2021 19:26:52 02/16/20 14 Us urine capacity measure completed Not Available Health Note 09/10/2021 19:26:52 08/16/19 14 Cystoscopy completed Not Available Health Note 09/10/2021 19:26:52 07/04/20 13 Us urine capacity measure completed Not Available Health Note 09/10/2021 19:26:52 03/21/20 13 Us urine capacity measure completed Not Available Health Note 09/10/2021 19:26:52 08/10/19 13 Colonoscopy thru stoma spx completed Not Available Health Note 09/10/2021 19:26:52 06/15/20 12 Us urine capacity measure completed Not Available Health Note 09/10/2021 19:26:52 04/30/20 12 Us urine capacity measure completed Not Available Health Note 09/10/2021 19:26:52 04/02/20 10 Routine venipuncture completed Not Available Health Note 09/10/2021 19:26:52 Insert epicard eltrd open completed Not Available Health Note 09/10/2021 19:26:52 Prostatectomy (turp) completed Not Available Health Note 09/10/2021 19:26:52 Removal of sperm duct(s) completed Not Available Health Note 09/10/2021 19:26:52 Removal of tonsils completed Not Available Health Note 09/10/2021 19:26:52 Imaging Results Imaging Date Name Status LastModified by Organiz ation Details LastModified Time 09/26/2020 XR, orbit completed [address] [facility] [address], [address], 09/26/2020 15:39:09 09/26/2020 MRI, prostate, w/wo contrast completed [address] [facility] [address], [address], 09/27/2020 17:42:09 01/13/2023 MRI, prostate, w/wo contrast completed [facility] [place], [address], 01/16/2023 13:46:26 Procedure Notes None recorded. Medical Equipment None Reported. Allergies Allergen ID Allergen Name Allergen Category Reaction Reaction Severity Criticality Documentation Date Start Date Code Code System Note Provider Name and Address Organization Details Recorded Time 387006 Lipitor medicatio n other Not available Not available 01/18/2020 38332 5 RxNorm CONGE STION [facility] 23:44:16 539853 epinephri ne medicatio n other Not available Not available 01/18/2020 3992 RxNorm HEART RACES Not Available [facility] 0 23:44:16 Medications Name Sig Start Date Stop Date Status Note LastModified by Organization Details LastModified Time clonidine HCl 0.1 mg tablet TK 1 T PO BID 09/09 completed Not Available Not Available Not Available carvedilo l 6.25 mg tablet 6.25mg 2/day 09/09 completed Not Available Not Available Not Available doxycycli ne hyclate 100 mg capsule TAKE 1 CAPSULE BY MOUTH TWICE DAILY FOR 10 DAYS 09/09 completed Not Available Not Available Not Available carvedilo l 12.5 mg tablet active Not Available Not Available Not Available torsemide 20 mg tablet 09/09 completed Not Available Not Available Not Available clonidine 0.1 mg/24 hr weekly transderm al patch 0.1mg per day 2/day 09/09 completed Not Available Not Available Not Available trazodone 50 mg tablet TAKE 1 TO 2 TABLETS BY MOUTH EVERY NIGHT AT BEDTIME NEEDED FOR INSOMNIA 09/09 completed Not Available Not Available Not Available lisinopri l 20 mg-hydroc hlorothia zide 12.5 mg tablet TAKE 1 TABLET BY MOUTH DAILY 09/09 completed Not Available Not Available Not Available clonidine 0.2 mg/24 hr weekly transderm al patch UNWRAP AND APPLY 1 PATCH TOPICALL Y TO THE SKIN 1 TIME A WEEK active Not Available Not Available No t Available aspirin 325 mg tablet 81 09/09 completed Not Available Not Available Not Available lisinopri l 20 mg tablet 09/09 completed Not Available Not Available Not Available isosorbid e mononitra te ER 30 mg tablet,ex tended release 24 hr 30mg 1/day 09/09 completed Not Available Not Available Not Available Lantus U-100 Insulin 100 unit/mL subcutane ous solution INJECT UP TO 80 UNITS AT BEDTIME. 09/09 completed Not Available Not Available Not Available Accu-Chek Softclix Lancets USE TO TEST FOUR TIMES DAILY 09/09 completed Not Available Not Available Not Available hydralazi ne 25 mg tablet TAKE ONE TABLET BY MOUTH THREE TIMES DAILY IN ADDITION TO 50MG THREE TIMES DAILY FOR TOTAL OF 75MG THREE TIMES DAILY active Not Available Not Available No t Available amlodipin e 2.5 mg tablet 09/11 completed Not Available Not Available Not Available chlorthal idone 25 mg tablet 09/09 completed Not Available Not Available Not Available amlodipin e 5 mg tablet 09/11 completed Not Available Not Available Not Available chlorthal idone 50 mg tablet active Not Available Not Available No t Available tramadol 50 mg tablet 08/22 completed Not Available Not Available Not Available ciclopiro x 8 % topical solution 02/15 completed Not Available Not Available Not Available oxycodone -acetamin ophen 5 mg-325 mg tablet TAKE 1 TABLET BY MOUTH EVERY 4 TO 8 HOURS NEEDED FOR PAIN 09/09 completed Not Available Not Available Not Available isosorbid e mononitra te ER 60 mg tablet,ex tended release 24 hr TAKE 1 TABLET BY MOUTH EVERY DAY active Not Available Not Available No t Available terbinafi ne HCl 250 mg tablet TAKE 1 TABLET BY MOUTH DAILY 09/09 completed Not Available Not Available Not Available clonidine HCl 0.2 mg tablet 09/09 completed Not Available Not Available Not Available triamcino lone acetonide 0.025 % topical cream APPLY TOPICALL Y TO THE AFFECTED AREA TWICE DAILY FOR 7 DAYS 09/09 completed Not Available Not Available Not Available Humalog U-100 Insulin 100 unit/mL subcutane ous solution USING UP TO 135UNITS EVERY DAY VIA INSULIN PUMP. 09/09 completed Not Available Not Available Not Available amlodipin e 10 mg tablet 10mg 1/day active Not Available Not Available No t Available cephalexi n 500 mg capsule TAKE 1 CAPSULE BY MOUTH FOUR TIMES DAILY 09/11 completed Not Available Not Available Not Available neomycin- polymyxin -dexameth 3.5 mg/mL-10, 000 unit/mL-0 .1% eye drops INSTILL ONE DROP INTO AFFECTED EYE FOUR TIMES DAILY 09/09 completed Not Available Not Available Not Available lisinopri l 10 mg tablet 10mg 1/day active Not Available Not Available No t Available clotrimaz ole 1 % topical solution PUT 5 DROPS INTO LEFT EAR TWICE DAILY. LAY WITH EAR UP FOR AT LEAST 10 MINS AFTER. USE COTTON BALL WITH VASELINE WHEN SHOWERIN G TO KEEP DRY. 09/09 completed Not Available Not Available Not Available nitroglyc sandra 0.4 mg sublingua l tablet PLACE 1 TABLET UNDER THE TONGUE EVERY 5 MINUTES NEEDED FOR CHEST PAIN. MAY TAKE 1 EXTRA TABLET 5 MINUTES AFTER 1ST DOSE IF PAIN NOT RELIE 09/09 completed Not Available Not Available Not Available gabapenti n 300 mg capsule TAKE 2 CAPSULES BY MOUTH AT 8.30 PM AND AT BEDTIME active Not Available Not Available No t Available aspirin 81 mg chewable tablet Chew 1 tablet every day by oral route. active Not Available Not Available No t Available hydralazi ne 50 mg tablet TAKE 1 TABLET BY MOUTH THREE TIMES DAILY IN ADDITION TO 25MG TABLET FOR TOTAL DAILY DOSE OF 75MG active Not Available Not Available No t Available furosemid e 20 mg tablet 09/09 completed Not Available Not Available Not Available gabapenti n 100 mg capsule active Not Available Not Available Not Available Novolog U-100 Insulin aspart 100 unit/mL subcutane ous solution INJECT UP TO 135 UNITS DAILY VIA INSULIN PUMP. active Not Available Not Available No t Available sertralin e 50 mg tablet TAKE 1 TABLET BY MOUTH EVERY MORNING active Not Available Not Available No t Available insulin syringe U-100 with needle 0.5 mL 31 gauge x 12/23 USE TO INJECT INSULIN FOUR TIMES DAILY active Not Available Not Available No t Available Ketostix strips USE DIRECTED . 09/09 completed Not Available Not Available Not Available neomycin 3.5 mg/g-poly myxin B 10,000 unit/g-de xameth 0.1 % eye oint 09/09 completed Not Available Not Available Not Available rosuvasta tin 40 mg tablet active Not Available Not Available Not Available insulin admin supplies as needed by pump as needed/d ay active Not Available Not Available No t Available melatonin 10mg 1/day active Not Available Not Available No t Available iron 35mg 1/day 09/09 completed Not Available Not Available Not Available gabapenti n 300mg 2/day 09/09 completed Not Available Not Available Not Available ferrous gluconate 324 mg (38 mg iron) tablet 09/09 completed Not Available Not Available Not Available aliskiren 150 mg tablet 09/09 completed Not Available Not Available Not Available cyanocoba william (B12)-cob amamide 5,000 mcg-100 mcg sublingua l lozenge 1ml of 1000mcg/ ml 1/day active Not Available Not Available No t Available Accu-Chek Sheri Plus test strips USE TO TEST ONCE DAILY 09/09 completed Not Available Not Available Not Available copper 2mg 1/day 09/09 completed Not Available Not Available Not Available PreviDent 5000 Booster Plus 1.1 % dental paste USE TO BRUSH TEETH TWICE DAILY 09/09 completed Not Available Not Available Not Available glucosami ne 500 mg-chondr oit 400 mg-vit C 2 mg-cintia 0.33 mg capsule Take by oral route. 09/09 completed HN: Patient reports no longer taking Not Available Not Available Not Available cyanocoba william (vit B-12) 1,000 mcg sublingua l lozenge [address] 1 TABLET UNDER THE TONGUE ONCE DAILY 09/09 completed Not Available Not Available Not Available Adult Aspirin Regimen 81 mg tablet,de layed release Take 1 tablet every day by oral route. 09/11 completed HN: Patient reports no longer taking Not Available Not Available Not Available Dexcom G6 Sensor device USE DIRECTED FOR CONTINUO US GLUCOSE MONITORI NG AND CHANGE SENSOR EVERY 10 DAYS 09/09 completed Not Available Not Available Not Available Dexcom G6 Emergency Management Consultant U UTD FOR CONTINUO US GLUCOSE MONITORI NG. 08/22 completed Not Available Not Available Not Available Dexcom G6 Transmitt er device CHANGE EVERY 90 DAYS 09/09 completed Not Available Not Available Not Available belinda don't know 1/day 09/09 completed Not Available Not Available Not Available Glucagon (HCl) Emergency Kit 1 mg solution for injection 09/09 completed HN: Patient reports taking Not Available Not Available Not Available Fluad Quad 1950-4680 (65yr up)(PF) 60 mcg (15 mcg x 4)/0.5mL IM syringe ADM 0.5ML IM UTD 09/11 completed Not Available Not Available Not Available Vitals Date Recorded Body height Body mass index (BMI) Body weight Provider Name and Address Organization Details Last Updated DateTime 09/11/2022 180.34 cm 29.3 kg/m2 13376.[address] [facility] 09/11/2022 11:31:29 Date Recorded Body height Body mass index (BMI) Body weight Provider Name and Address Organization Details Last Updated DateTime 09/09/2023 180.34 cm 29.3 kg/m2 62914.[address] [facility] 09/09/2023 12:41:38 Date Recorded Body height Body mass index (BMI) Body weight Provider Name and Address Organization Details Last Updated DateTime 08/22/2020 180.34 cm 31.4 kg/m2 069186.28 g Kiara [place] [facility] 08/22/2020 12:14:00 Date Recorded Body mass index (BMI) Body height Body weight Provider Name and Address Organization Details Last Updated DateTime 09/12/2021 29.3 kg/m2 180.34 cm 12817.5109 428009 g Not Available Health Note 09/12/2021 15:01:56 Social History Question Answer Notes LastModified by Organizat ion Details LastModified Time Tobacco Smoking Status Never Smoker Not Available Health Note 09/10/2021 19:26:53 What Is Your Level Of Alcohol Consumption? Moderate [email or web address] Information not available 09/10/2021 What Is Your Level Of Caffeine Consumption? Moderate [email or web address] Information not available 09/10/2021 How Much Tobacco Do You Chew? None [email or web address] Information not available 09/10/2021 Do You Or Have You Ever Used E-cigarettes Or Vape? Never Used Electronic Cigarettes [email or web address] Information not available 09/10/2021 Race White Information n ot available 01/19/2020 Ethnicity Not /Latin o [email or web address] Information not available 09/11/2022 Preferred Language Martiniquais [email or web address] Information not available 09/11/2022 Recreational Drug Use No [email or web address] Information not available 09/11/2022 Could You Be ? No Information not available 09/11/2022 Marital Status Informati on not available 01/19/2020 What Was The Date Of Your Most Recent Tobacco Screening? 09/09/2023 Information not available 09/09/2023 Have You Ever Been Counseled For Unhealthy Alcohol Use? No Information not available 09/09/2023 Do You Or Have You Ever Used Smokeless Tobacco? Never Used Smokeless Tobacco [email or web address] Information not available 09/10/2021 Do You Use Any Illicit Or Recreational Drugs? No [email or web address] Information not available 09/10/2021 Has Tobacco Cessation Counseling Been Provided? No [email or web address] Information not available 09/11/2022 Do You Or Have You Ever Used Any Other Forms Of Tobacco Or Nicotine? No [email or web address] Information not available 09/11/2022 How Many Days In The Past Year Have You Consumed 5 Or More Drinks? 1 Information no t available 09/09/2023 Sex: Male Functional Status None recorded. Mental Status None recorded. Family History Nothing Reported Notes:Hypertension:Mother Medical History Condition Response Diabetes Y Sexually Transmitted Infection N Bleeding Disorder N Other N High Blood Pressure Y Kidney Stones N High Cholesterol N GERD/Acid Reflux N Heart Disease Y Cancer N Depression N Lung Disease N Immunizations Vaccine Type Date Status Provider Name and Address Organization Details Recorded Time Pneumococcal conjugate PCV 13 12/29/2014 completed Anabela trujillo, [facility] 09/09/2023 12:41:41 SARS-COV-2 (COVID-19) vaccine, UNSPECIFIED 06/12/2021 completed Anabela trujillo [facility] 09/09/2023 12:41:41 pneumococcal, unspecified formulation completed Anabela trujillo, [facility] 09/09/2023 12:41:41 influenza, unspecified formulation 06/12/2021 [facility] 12:41:41 Past Encounters Encounter ID Performer Location Encounter Start Date Encounter Closed Date Diagnosis/Indication Diagnosis SNOMED-CT Code Diagnosis ICD10 Code [id number] Peter Gipson MD [address] [address] 02/16/2020 09:19:25 02/22/2020 10:54:30 Carcinoma of prostate 961484895 C61 Benign pro static hyperplasia with outflow obstruction 130311180 N40.1 [id number] [facility] [address] [place] [address] [address] [place] [address] 08/22/2020 12:08:23 08/22/2020 12:58:17 Benign prostatic hyperplasia with outflow obstruction 122299027 N40.1 Malignant tumor of prostate 148039230 C61 Nocturia 160740943 R35.1 [id number] Peter Gipson MD [address] [address] 09/12/2021 15:00:54 09/12/2021 15:42:08 Benign prostatic hyperplasia with outflow obstruction 421567826 N40.1 Malignant tumor of prostate 567452995 C61 [id number] MD Alanis [facility] [address] [place] [id number] 09/11/2022 11:18:55 09/11/2022 12:04:56 Benign prostatic hyperplasia with outflow obstruction 826761771 N40.1 Malignant tumor of prostate 241559229 C61 Increased frequency of urination 203957334 R35.0 [id number] MD Debbie Braxtonury [address] [place] [phone] 09/09/2023 12:37:02 09/09/2023 12:55:12 Benign prostatic hyperplasia with outflow obstruction 237904078 N40.1 Malignant tumor of prostate 853706889 C61 Increased frequency of urination 197556574 R35.0 Health Concerns Section Related Observation LastModified by Organization Detai ls LastModified Time None Recorded Concern Status LastModified by Organization Details LastModified Time None Recorded Advance Directives Directive None Recorded Payers Encounter Date Sequence Insurance Name Policy Number Policy Zimmerman Covered Member ID Zimmerman Member ID Guarantor Name 02/16/2020 1 [place] [employer] Nikita Kevin Justin [id number] Nikita Anderson 02/16/2020 2 [place] [id number] Nikita Anderson [id number] Nikita Anderson 08/22/2020 1 [place] [employer] Nikita W Justin [id number] Nikita W Justin 08/22/2020 2 [place] [id number] Nikita Anderson [id number] Nikita W Justin 09/12/2021 1 [place] [employer] Nikita W Justin [id number] Nikita W Justin 09/12/2021 2 [place] [id number] Nikita Anderson [id number] Nikita Anderson 09/11/2022 1 [place] [employer] Nikita Kevin Justin [id number] Nikita Anderson 09/11/2022 2 [place] [id number] Nikita Anderson [id number] Nikita Anderson 09/09/2023 1 [place] [facility] Nikita Anderson [id number] Nikita Anderson 09/09/2023 2 [place] [id number] Nikita Anderson [id number] Nikita Anderson Notes Date Note Type Note Provider Name and Address Organization Details Recorded Time 02/16/2020 text/html HPI Notes: : Seen by Ricardo Philip in the past for testosterone replacement therapy and ED. Last seen by Ricardo Philip on 04/23/2010. First noticed voiding symptoms about 1.5 weeks ago. Saw his PCP who started Flomax. Patient has only taken 2 pills and hasn't seen a major change yet. Prior to this episode, no problems. Has urgency. Has a discomfort sorta like a burning sensation in his suprapubic region. Also constipated -> for the last 2-3 days. Had a looser BM yesterday and had a BM this AM. Has tried prune juice. Has never had a PSA drawn. 06/15/12: At last visit, continued Cipro x 2 more weeks for possible prostatitis. Encouraged him to try the Flomax. PSA not drawn due to possible prostatitis. Here for follow up. PVR 06/15/12 = 169 mL. UA 06/15/12 = neg blood, nit, and LE. He feels well today. Feels back to normal. Burning sensation and urgency has resolved. Ran out of Flomax and didn't get it refilled. Last dose about 2 weeks ago. Hasn't noticed a difference since not taking the Flomax. No dysuria. No gross hematuria. 03/21/13: PSA 09/16/12 = 2.92, 03/10/13 = 2.57. PVR = 112 mL. Not taking the Flomax. States that usually when he's taking a BM, he doesn't empty his bladder as well as when he is not taking a BM. He describes double voiding. Has some occasional straining. Force of stream is good most of the time. Nocturia 0-2x/night. His current symptoms don't bother him enough to start Flomax again. No dysuria or gross hematuria. 07/04/13: Plan at last visit was to see me back in 1 year. PVR 07/04/13 = 93 mL. He's having some voiding symptoms. His blood sugars have been high so he's voiding more because of that. He has been having to strain more to start and maintain his stream. Force of stream weak to moderate. Nocturia 2-3x/night. No dysuria. Has a heart cath scheduled for 07/13/13 due to a possible blockage. 08/16/13: Started Flomax at the last visit. Here for cystoscopy. Feels that his stream is better and that it's easier to start his stream. He's happy with the improvement. Since getting his sugars better controlled, his nocturia has improved to 1x/night. 02/15/14: PVR = 51 mL. Still on Flomax. Nocturia 1x/night but having problems getting back to sleep after waking up. Stream is weaker and varies. He states he had a hard time determining whether his voiding symptoms are worse since the last visit. Occasionally he has to use a mild strain. No frequency. No urgency. No incontinence. No dysuria. No gross hematuria. 02/19/15: Had a period of about 1 month that he had increased urgency but no gross hematuria. His symptoms resolved. He's still on the Flomax. Happy with most of his voiding symptoms but nocturia 1-4x/night bothers him the most. At times, he has been drinking water prior to going to bed. States that he likely is going to need cardiac stents placed (finds out this week if that's the case; already had the cardiac angiogram and states he has 4 areas of narrowing). 10/05/15: PSA 10/01/15 = 4.66 ng/mL. Had cardiac stents placed on 04/09/15. There were drug-eluting stents. He's on Plavix. Sees cardiology next week. No changes in his voiding since the last visit. Can't tell if Flomax is helping. 11/23/15: S/p UroNav biopsy on 10/29/15. Pathology = negative. Prostate was 130 grams on the prostate ultrasound. PVR = 170 mL. States that about 1 week ago, he started noticing some difficulty voiding and frequency. States that yesterday, he was voiding every 30 minutes. He was having increased nocturia as well. Having to strain to void with some volumes of urine. Having urgency as well which sometimes can get better with moving around. Mild dysuria that is just mostly at the start of his stream. No scrotal, testicular, anal, or perineal pain. Sates that he has constipation over the same time frame -> doesn't feel that he's evacuating completely, has noticed some smaller diameter stool as well as some pellets, and he's having to strain to pass a BM. 11/29/15: Called with concerns about the feeling of needing to void every 30-60 minutes, even at night. Having to push to void. He's not really doing self catheterization. Marisel Pryor had him come in for UA and PVR. PVR = 488 mL. No big changes since the last visit. Still constipated. 01/02/16: PVR = 229 mL. He has been doing well. He feels that he's had difficulty emptying his bladder for years. He did keep a log of his self CIC at home and brought it in (will scan it in). There is a general trend from the end of November 2015 to now, that he is voiding a higher percentage of his total bladder but he's still around 45-50% PVR. 07/14/18: S/p simple robotic prostatectomy by Dr. Verde on 04/23/16. Pathology = 80 g, 0.25 cm focus of 3+3 prostate cancer, pT2a. Had stress urinary incontinence and had biofeedback in August 2016 which seemed to help. PSA 07/05/18 = 0.18 ng/mL. He's had times when he's had some small leakage at night; he'll wake up with some wet underwear. He feels that he's emptying ok but he has to double void in the aids counselor (states that these are 2 hours apart). No dysuria. No gross hematuria. He can live with his voiding. 07/29/19: Patient was to get a 6 month PSA from the last visit but it wasn't performed. PSA 07/21/19 = 0.21 ng/mL. PVR = 12 mL. No new medical issues or surgeries. No dysuria. No gross hematuria. Nocturia 1x/night. States that he'll have some urinary leaking with certain movements without the sense of urgency about 1x/month. No unwanted weight loss. 02/16/2020: Plan at the last visit was for a PSA every 6 months and an OV in 1 year. PSA 01/16/2020 = 0.14 ng/mL. Since the last visit, he's been doing well. No new medical issues or surgeries. Nocturia 0-1x/night. He feels that he has a good stream and empties his bladder. No dysuria. No gross hematuria. This visit was conducted using [employer] video conferencing technology due to the COVID-19 crisis. Prior to conducting our video e-health visit, the patient was apprised of the risks, benefits and alternatives to video visits including but not limited to inadequate image resolution, interrupted video visits due to technological limitations, delays in medical evaluation and treatment due to deficiencies or failures of equipment, failure of security protocols resulting in a breach of privacy of personal medical information and a lack of access to complete medical records resulting in not fully informed decisions. Also, because of the COVID-19 pandemic, it was not possible for the patient to sign the privacy regulations, HIPAA release and assignment of benefits forms. The patient was given the opportunity to ask questions about these policies and gave verbal acknowledgement and approval of these policies as well as to hold this meeting using video technology. Lastly, the patient agreed to allowing their medication history to be pulled from a national pharmacy database to facilitate and coordinate their care. Peter Gipson MD [address] [place] [address],[address], [address], [facility] 02/16/2020 11:05:53 08/22/2020 text/html HPI Notes: : Seen by Ricardo Philip in the past for testosterone replacement therapy and ED. Last seen by Ricardo Philip on 04/23/2010. First noticed voiding symptoms about 1.5 weeks ago. Saw his PCP who started Flomax. Patient has only taken 2 pills and hasn't seen a major change yet. Prior to this episode, no problems. Has urgency. Has a discomfort sorta like a burning sensation in his suprapubic region. Also constipated -> for the last 2-3 days. Had a looser BM yesterday and had a BM this AM. Has tried prune juice. Has never had a PSA drawn. 06/15/12: At last visit, continued Cipro x 2 more weeks for possible prostatitis. Encouraged him to try the Flomax. PSA not drawn due to possible prostatitis. Here for follow up. PVR 06/15/12 = 169 mL. UA 06/15/12 = neg blood, nit, and LE. He feels well today. Feels back to normal. Burning sensation and urgency has resolved. Ran out of Flomax and didn't get it refilled. Last dose about 2 weeks ago. Hasn't noticed a difference since not taking the Flomax. No dysuria. No gross hematuria. 03/21/13: PSA 09/16/12 = 2.92, 03/10/13 = 2.57. PVR = 112 mL. Not taking the Flomax. States that usually when he's taking a BM, he doesn't empty his bladder as well as when he is not taking a BM. He describes double voiding. Has some occasional straining. Force of stream is good most of the time. Nocturia 0-2x/night. His current symptoms don't bother him enough to start Flomax again. No dysuria or gross hematuria. 07/04/13: Plan at last visit was to see me back in 1 year. PVR 07/04/13 = 93 mL. He's having some voiding symptoms. His blood sugars have been high so he's voiding more because of that. He has been having to strain more to start and maintain his stream. Force of stream weak to moderate. Nocturia 2-3x/night. No dysuria. Has a heart cath scheduled for 07/13/13 due to a possible blockage. 08/16/13: Started Flomax at the last visit. Here for cystoscopy. Feels that his stream is better and that it's easier to start his stream. He's happy with the improvement. Since getting his sugars better controlled, his nocturia has improved to 1x/night. 02/15/14: PVR = 51 mL. Still on Flomax. Nocturia 1x/night but having problems getting back to sleep after waking up. Stream is weaker and varies. He states he had a hard time determining whether his voiding symptoms are worse since the last visit. Occasionally he has to use a mild strain. No frequency. No urgency. No incontinence. No dysuria. No gross hematuria. 02/19/15: Had a period of about 1 month that he had increased urgency but no gross hematuria. His symptoms resolved. He's still on the Flomax. Happy with most of his voiding symptoms but nocturia 1-4x/night bothers him the most. At times, he has been drinking water prior to going to bed. States that he likely is going to need cardiac stents placed (finds out this week if that's the case; already had the cardiac angiogram and states he has 4 areas of narrowing). 10/05/15: PSA 10/01/15 = 4.66 ng/mL. Had cardiac stents placed on 04/09/15. There were drug-eluting stents. He's on Plavix. Sees cardiology next week. No changes in his voiding since the last visit. Can't tell if Flomax is helping. 11/23/15: S/p UroNav biopsy on 10/29/15. Pathology = negative. Prostate was 130 grams on the prostate ultrasound. PVR = 170 mL. States that about 1 week ago, he started noticing some difficulty voiding and frequency. States that yesterday, he was voiding every 30 minutes. He was having increased nocturia as well. Having to strain to void with some volumes of urine. Having urgency as well which sometimes can get better with moving around. Mild dysuria that is just mostly at the start of his stream. No scrotal, testicular, anal, or perineal pain. Sates that he has constipation over the same time frame -> doesn't feel that he's evacuating completely, has noticed some smaller diameter stool as well as some pellets, and he's having to strain to pass a BM. 11/29/15: Called with concerns about the feeling of needing to void every 30-60 minutes, even at night. Having to push to void. He's not really doing self catheterization. Marisel Pryor had him come in for UA and PVR. PVR = 488 mL. No big changes since the last visit. Still constipated. 01/02/16: PVR = 229 mL. He has been doing well. He feels that he's had difficulty emptying his bladder for years. He did keep a log of his self CIC at home and brought it in (will scan it in). There is a general trend from the end of November 2015 to now, that he is voiding a higher percentage of his total bladder but he's still around 45-50% PVR. 07/14/18: S/p simple robotic prostatectomy by Dr. Verde on 04/23/16. Pathology = 80 g, 0.25 cm focus of 3+3 prostate cancer, pT2a. Had stress urinary incontinence and had biofeedback in August 2016 which seemed to help. PSA 07/05/18 = 0.18 ng/mL. He's had times when he's had some small leakage at night; he'll wake up with some wet underwear. He feels that he's emptying ok but he has to double void in the aids counselor (states that these are 2 hours apart). No dysuria. No gross hematuria. He can live with his voiding. 07/29/19: Patient was to get a 6 month PSA from the last visit but it wasn't performed. PSA 07/21/19 = 0.21 ng/mL. PVR = 12 mL. No new medical issues or surgeries. No dysuria. No gross hematuria. Nocturia 1x/night. States that he'll have some urinary leaking with certain movements without the sense of urgency about 1x/month. No unwanted weight loss. 02/16/2020: Plan at the last visit was for a PSA every 6 months and an OV in 1 year. PSA 01/16/2020 = 0.14 ng/mL. Since the last visit, he's been doing well. No new medical issues or surgeries. Nocturia 0-1x/night. He feels that he has a good stream and empties his bladder. No dysuria. No gross hematuria. 08/22/20: PSA 08/16/20 = 0.1 ng/mL. IPSS = 5. PVR = 3 mL. He's about the same I guess. Nocturia 0-1x/night. He has been told that he needs testing for sleep apnea. Empties bladder. Force of stream most of the time is good. Overall, he's ok with his voiding. Peter Gipson MD [address] [facility],[address], [place], [address], [facility] 08/22/2020 12:50:20 09/12/2021 text/html HPI Notes: : Seen by Ricardo Philip in the past for testosterone replacement therapy and ED. Last seen by Ricardo Philip on 04/23/2010. First noticed voiding symptoms about 1.5 weeks ago. Saw his PCP who started Flomax. Patient has only taken 2 pills and hasn't seen a major change yet. Prior to this episode, no problems. Has urgency. Has a discomfort sorta like a burning sensation in his suprapubic region. Also constipated -> for the last 2-3 days. Had a looser BM yesterday and had a BM this AM. Has tried prune juice. Has never had a PSA drawn. 06/15/12: At last visit, continued Cipro x 2 more weeks for possible prostatitis. Encouraged him to try the Flomax. PSA not drawn due to possible prostatitis. Here for follow up. PVR 06/15/12 = 169 mL. UA 06/15/12 = neg blood, nit, and LE. He feels well today. Feels back to normal. Burning sensation and urgency has resolved. Ran out of Flomax and didn't get it refilled. Last dose about 2 weeks ago. Hasn't noticed a difference since not taking the Flomax. No dysuria. No gross hematuria. 03/21/13: PSA 09/16/12 = 2.92, 03/10/13 = 2.57. PVR = 112 mL. Not taking the Flomax. States that usually when he's taking a BM, he doesn't empty his bladder as well as when he is not taking a BM. He describes double voiding. Has some occasional straining. Force of stream is good most of the time. Nocturia 0-2x/night. His current symptoms don't bother him enough to start Flomax again. No dysuria or gross hematuria. 07/04/13: Plan at last visit was to see me back in 1 year. PVR 07/04/13 = 93 mL. He's having some voiding symptoms. His blood sugars have been high so he's voiding more because of that. He has been having to strain more to start and maintain his stream. Force of stream weak to moderate. Nocturia 2-3x/night. No dysuria. Has a heart cath scheduled for 07/13/13 due to a possible blockage. 08/16/13: Started Flomax at the last visit. Here for cystoscopy. Feels that his stream is better and that it's easier to start his stream. He's happy with the improvement. Since getting his sugars better controlled, his nocturia has improved to 1x/night. 02/15/14: PVR = 51 mL. Still on Flomax. Nocturia 1x/night but having problems getting back to sleep after waking up. Stream is weaker and varies. He states he had a hard time determining whether his voiding symptoms are worse since the last visit. Occasionally he has to use a mild strain. No frequency. No urgency. No incontinence. No dysuria. No gross hematuria. 02/19/15: Had a period of about 1 month that he had increased urgency but no gross hematuria. His symptoms resolved. He's still on the Flomax. Happy with most of his voiding symptoms but nocturia 1-4x/night bothers him the most. At times, he has been drinking water prior to going to bed. States that he likely is going to need cardiac stents placed (finds out this week if that's the case; already had the cardiac angiogram and states he has 4 areas of narrowing). 10/05/15: PSA 10/01/15 = 4.66 ng/mL. Had cardiac stents placed on 04/09/15. There were drug-eluting stents. He's on Plavix. Sees cardiology next week. No changes in his voiding since the last visit. Can't tell if Flomax is helping. 11/23/15: S/p UroNav biopsy on 10/29/15. Pathology = negative. Prostate was 130 grams on the prostate ultrasound. PVR = 170 mL. States that about 1 week ago, he started noticing some difficulty voiding and frequency. States that yesterday, he was voiding every 30 minutes. He was having increased nocturia as well. Having to strain to void with some volumes of urine. Having urgency as well which sometimes can get better with moving around. Mild dysuria that is just mostly at the start of his stream. No scrotal, testicular, anal, or perineal pain. Sates that he has constipation over the same time frame -> doesn't feel that he's evacuating completely, has noticed some smaller diameter stool as well as some pellets, and he's having to strain to pass a BM. 11/29/15: Called with concerns about the feeling of needing to void every 30-60 minutes, even at night. Having to push to void. He's not really doing self catheterization. Marisel Pryor had him come in for UA and PVR. PVR = 488 mL. No big changes since the last visit. Still constipated. 01/02/16: PVR = 229 mL. He has been doing well. He feels that he's had difficulty emptying his bladder for years. He did keep a log of his self CIC at home and brought it in (will scan it in). There is a general trend from the end of November 2015 to now, that he is voiding a higher percentage of his total bladder but he's still around 45-50% PVR. 07/14/18: S/p simple robotic prostatectomy by Dr. Verde on 04/23/16. Pathology = 80 g, 0.25 cm focus of 3+3 prostate cancer, pT2a. Had stress urinary incontinence and had biofeedback in August 2016 which seemed to help. PSA 07/05/18 = 0.18 ng/mL. He's had times when he's had some small leakage at night; he'll wake up with some wet underwear. He feels that he's emptying ok but he has to double void in the aids counselor (states that these are 2 hours apart). No dysuria. No gross hematuria. He can live with his voiding. 07/29/19: Patient was to get a 6 month PSA from the last visit but it wasn't performed. PSA 07/21/19 = 0.21 ng/mL. PVR = 12 mL. No new medical issues or surgeries. No dysuria. No gross hematuria. Nocturia 1x/night. States that he'll have some urinary leaking with certain movements without the sense of urgency about 1x/month. No unwanted weight loss. 02/16/2020: Plan at the last visit was for a PSA every 6 months and an OV in 1 year. PSA 01/16/2020 = 0.14 ng/mL. Since the last visit, he's been doing well. No new medical issues or surgeries. Nocturia 0-1x/night. He feels that he has a good stream and empties his bladder. No dysuria. No gross hematuria. 08/22/20: PSA 08/16/20 = 0.1 ng/mL. IPSS = 5. PVR = 3 mL. He's about the same I guess. Nocturia 0-1x/night. He has been told that he needs testing for sleep apnea. Empties bladder. Force of stream most of the time is good. Overall, he's ok with his voiding. 09/12/21: CAD, s/p CABG x 3 on 04/19/21, DM with peripheral neuropathy, CARLITOS, DM, PVD, HTN, prostate cancer on active surveillance. Prostate MRI 09/26/20 ([facility]) = 2.3 x 0.6 cm focus of likely residual prostate tissue, no concerning lesions. PSA 01/10/21 = 0.11 ng/mL. PSA 06/13/21 = 0.09 ng/mL. Cr 09/10/21 = 1.27 (GFR = 60). PVR = 2 mL. States that his heart is doing well but he's having hypertension in the evening. He's going to see an manager licensing in about 1 week to see if he has high aldosterone. No difficulties voiding. No dysuria. No gross hematuria. Empties bladder. Nocturia 0-1x/night. He's using CPAP and an insulin pump. Peter Gipson MD [address] [place] [address],[address], [place], [address], [facility] 09/12/2021 15:40:26 09/11/2022 text/html HPI Notes: : Seen by Ricardo Philip in the past for testosterone replacement therapy and ED. Last seen by Ricardo Philip on 04/23/2010. First noticed voiding symptoms about 1.5 weeks ago. Saw his PCP who started Flomax. Patient has only taken 2 pills and hasn't seen a major change yet. Prior to this episode, no problems. Has urgency. Has a discomfort sorta like a burning sensation in his suprapubic region. Also constipated -> for the last 2-3 days. Had a looser BM yesterday and had a BM this AM. Has tried prune juice. Has never had a PSA drawn. 06/15/12: At last visit, continued Cipro x 2 more weeks for possible prostatitis. Encouraged him to try the Flomax. PSA not drawn due to possible prostatitis. Here for follow up. PVR 06/15/12 = 169 mL. UA 06/15/12 = neg blood, nit, and LE. He feels well today. Feels back to normal. Burning sensation and urgency has resolved. Ran out of Flomax and didn't get it refilled. Last dose about 2 weeks ago. Hasn't noticed a difference since not taking the Flomax. No dysuria. No gross hematuria. 03/21/13: PSA 09/16/12 = 2.92, 03/10/13 = 2.57. PVR = 112 mL. Not taking the Flomax. States that usually when he's taking a BM, he doesn't empty his bladder as well as when he is not taking a BM. He describes double voiding. Has some occasional straining. Force of stream is good most of the time. Nocturia 0-2x/night. His current symptoms don't bother him enough to start Flomax again. No dysuria or gross hematuria. 07/04/13: Plan at last visit was to see me back in 1 year. PVR 07/04/13 = 93 mL. He's having some voiding symptoms. His blood sugars have been high so he's voiding more because of that. He has been having to strain more to start and maintain his stream. Force of stream weak to moderate. Nocturia 2-3x/night. No dysuria. Has a heart cath scheduled for 07/13/13 due to a possible blockage. 08/16/13: Started Flomax at the last visit. Here for cystoscopy. Feels that his stream is better and that it's easier to start his stream. He's happy with the improvement. Since getting his sugars better controlled, his nocturia has improved to 1x/night. 02/15/14: PVR = 51 mL. Still on Flomax. Nocturia 1x/night but having problems getting back to sleep after waking up. Stream is weaker and varies. He states he had a hard time determining whether his voiding symptoms are worse since the last visit. Occasionally he has to use a mild strain. No frequency. No urgency. No incontinence. No dysuria. No gross hematuria. 02/19/15: Had a period of about 1 month that he had increased urgency but no gross hematuria. His symptoms resolved. He's still on the Flomax. Happy with most of his voiding symptoms but nocturia 1-4x/night bothers him the most. At times, he has been drinking water prior to going to bed. States that he likely is going to need cardiac stents placed (finds out this week if that's the case; already had the cardiac angiogram and states he has 4 areas of narrowing). 10/05/15: PSA 10/01/15 = 4.66 ng/mL. Had cardiac stents placed on 04/09/15. There were drug-eluting stents. He's on Plavix. Sees cardiology next week. No changes in his voiding since the last visit. Can't tell if Flomax is helping. 11/23/15: S/p UroNav biopsy on 10/29/15. Pathology = negative. Prostate was 130 grams on the prostate ultrasound. PVR = 170 mL. States that about 1 week ago, he started noticing some difficulty voiding and frequency. States that yesterday, he was voiding every 30 minutes. He was having increased nocturia as well. Having to strain to void with some volumes of urine. Having urgency as well which sometimes can get better with moving around. Mild dysuria that is just mostly at the start of his stream. No scrotal, testicular, anal, or perineal pain. Sates that he has constipation over the same time frame -> doesn't feel that he's evacuating completely, has noticed some smaller diameter stool as well as some pellets, and he's having to strain to pass a BM. 11/29/15: Called with concerns about the feeling of needing to void every 30-60 minutes, even at night. Having to push to void. He's not really doing self catheterization. Marisel Pryor had him come in for UA and PVR. PVR = 488 mL. No big changes since the last visit. Still constipated. 01/02/16: PVR = 229 mL. He has been doing well. He feels that he's had difficulty emptying his bladder for years. He did keep a log of his self CIC at home and brought it in (will scan it in). There is a general trend from the end of November 2015 to now, that he is voiding a higher percentage of his total bladder but he's still around 45-50% PVR. 07/14/18: S/p simple robotic prostatectomy by Dr. Verde on 04/23/16. Pathology = 80 g, 0.25 cm focus of 3+3 prostate cancer, pT2a. Had stress urinary incontinence and had biofeedback in August 2016 which seemed to help. PSA 07/05/18 = 0.18 ng/mL. He's had times when he's had some small leakage at night; he'll wake up with some wet underwear. He feels that he's emptying ok but he has to double void in the aids counselor (states that these are 2 hours apart). No dysuria. No gross hematuria. He can live with his voiding. 07/29/19: Patient was to get a 6 month PSA from the last visit but it wasn't performed. PSA 07/21/19 = 0.21 ng/mL. PVR = 12 mL. No new medical issues or surgeries. No dysuria. No gross hematuria. Nocturia 1x/night. States that he'll have some urinary leaking with certain movements without the sense of urgency about 1x/month. No unwanted weight loss. 02/16/2020: Plan at the last visit was for a PSA every 6 months and an OV in 1 year. PSA 01/16/2020 = 0.14 ng/mL. Since the last visit, he's been doing well. No new medical issues or surgeries. Nocturia 0-1x/night. He feels that he has a good stream and empties his bladder. No dysuria. No gross hematuria. 08/22/20: PSA 08/16/20 = 0.1 ng/mL. IPSS = 5. PVR = 3 mL. He's about the same I guess. Nocturia 0-1x/night. He has been told that he needs testing for sleep apnea. Empties bladder. Force of stream most of the time is good. Overall, he's ok with his voiding. 09/12/21: CAD, s/p CABG x 3 on 04/19/21, DM with peripheral neuropathy, CARLITOS, DM, PVD, HTN, prostate cancer on active surveillance. Prostate MRI 09/26/20 ([facility]) = 2.3 x 0.6 cm focus of likely residual prostate tissue, no concerning lesions. PSA 01/10/21 = 0.11 ng/mL. PSA 06/13/21 = 0.09 ng/mL. Cr 09/10/21 = 1.27 (GFR = 60). PVR = 2 mL. States that his heart is doing well but he's having hypertension in the evening. He's going to see an manager licensing in about 1 week to see if he has high aldosterone. No difficulties voiding. No dysuria. No gross hematuria. Empties bladder. Nocturia 0-1x/night. He's using CPAP and an insulin pump. 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 PSA 01/29/22 = 0.08 ng/mL. PSA 08/26/22 = 0.1 ng/mL. PVR = 0 mL. IPSS = 14. Has has been diagnosed with chronic kidney disease. No dysuria. He states that he has sometimes he has difficultly getting started in the morning and he'll have to double void to empty his bladder. Force of stream seems unchanged to him. Peter Gipson MD [address] [facility],[address], [place], [address], [facility] 09/11/2022 12:02:01 09/09/2023 text/html HPI Notes: : Seen by Ricardo Philip in the past for testosterone replacement therapy and ED. Last seen by Ricardo Philip on 04/23/2010. First noticed voiding symptoms about 1.5 weeks ago. Saw his PCP who started Flomax. Patient has only taken 2 pills and hasn't seen a major change yet. Prior to this episode, no problems. Has urgency. Has a discomfort sorta like a burning sensation in his suprapubic region. Also constipated -> for the last 2-3 days. Had a looser BM yesterday and had a BM this AM. Has tried prune juice. Has never had a PSA drawn. 06/15/12: At last visit, continued Cipro x 2 more weeks for possible prostatitis. Encouraged him to try the Flomax. PSA not drawn due to possible prostatitis. Here for follow up. PVR 06/15/12 = 169 mL. UA 06/15/12 = neg blood, nit, and LE. He feels well today. Feels back to normal. Burning sensation and urgency has resolved. Ran out of Flomax and didn't get it refilled. Last dose about 2 weeks ago. Hasn't noticed a difference since not taking the Flomax. No dysuria. No gross hematuria. 03/21/13: PSA 09/16/12 = 2.92, 03/10/13 = 2.57. PVR = 112 mL. Not taking the Flomax. States that usually when he's taking a BM, he doesn't empty his bladder as well as when he is not taking a BM. He describes double voiding. Has some occasional straining. Force of stream is good most of the time. Nocturia 0-2x/night. His current symptoms don't bother him enough to start Flomax again. No dysuria or gross hematuria. 07/04/13: Plan at last visit was to see me back in 1 year. PVR 07/04/13 = 93 mL. He's having some voiding symptoms. His blood sugars have been high so he's voiding more because of that. He has been having to strain more to start and maintain his stream. Force of stream weak to moderate. Nocturia 2-3x/night. No dysuria. Has a heart cath scheduled for 07/13/13 due to a possible blockage. 08/16/13: Started Flomax at the last visit. Here for cystoscopy. Feels that his stream is better and that it's easier to start his stream. He's happy with the improvement. Since getting his sugars better controlled, his nocturia has improved to 1x/night. 02/15/14: PVR = 51 mL. Still on Flomax. Nocturia 1x/night but having problems getting back to sleep after waking up. Stream is weaker and varies. He states he had a hard time determining whether his voiding symptoms are worse since the last visit. Occasionally he has to use a mild strain. No frequency. No urgency. No incontinence. No dysuria. No gross hematuria. 02/19/15: Had a period of about 1 month that he had increased urgency but no gross hematuria. His symptoms resolved. He's still on the Flomax. Happy with most of his voiding symptoms but nocturia 1-4x/night bothers him the most. At times, he has been drinking water prior to going to bed. States that he likely is going to need cardiac stents placed (finds out this week if that's the case; already had the cardiac angiogram and states he has 4 areas of narrowing). 10/05/15: PSA 10/01/15 = 4.66 ng/mL. Had cardiac stents placed on 04/09/15. There were drug-eluting stents. He's on Plavix. Sees cardiology next week. No changes in his voiding since the last visit. Can't tell if Flomax is helping. 11/23/15: S/p UroNav biopsy on 10/29/15. Pathology = negative. Prostate was 130 grams on the prostate ultrasound. PVR = 170 mL. States that about 1 week ago, he started noticing some difficulty voiding and frequency. States that yesterday, he was voiding every 30 minutes. He was having increased nocturia as well. Having to strain to void with some volumes of urine. Having urgency as well which sometimes can get better with moving around. Mild dysuria that is just mostly at the start of his stream. No scrotal, testicular, anal, or perineal pain. Sates that he has constipation over the same time frame -> doesn't feel that he's evacuating completely, has noticed some smaller diameter stool as well as some pellets, and he's having to strain to pass a BM. 11/29/15: Called with concerns about the feeling of needing to void every 30-60 minutes, even at night. Having to push to void. He's not really doing self catheterization. Marisel Pryor had him come in for UA and PVR. PVR = 488 mL. No big changes since the last visit. Still constipated. 01/02/16: PVR = 229 mL. He has been doing well. He feels that he's had difficulty emptying his bladder for years. He did keep a log of his self CIC at home and brought it in (will scan it in). There is a general trend from the end of November 2015 to now, that he is voiding a higher percentage of his total bladder but he's still around 45-50% PVR. 07/14/18: S/p simple robotic prostatectomy by Dr. Verde on 04/23/16. Pathology = 80 g, 0.25 cm focus of 3+3 prostate cancer, pT2a. Had stress urinary incontinence and had biofeedback in August 2016 which seemed to help. PSA 07/05/18 = 0.18 ng/mL. He's had times when he's had some small leakage at night; he'll wake up with some wet underwear. He feels that he's emptying ok but he has to double void in the aids counselor (states that these are 2 hours apart). No dysuria. No gross hematuria. He can live with his voiding. 07/29/19: Patient was to get a 6 month PSA from the last visit but it wasn't performed. PSA 07/21/19 = 0.21 ng/mL. PVR = 12 mL. No new medical issues or surgeries. No dysuria. No gross hematuria. Nocturia 1x/night. States that he'll have some urinary leaking with certain movements without the sense of urgency about 1x/month. No unwanted weight loss. 02/16/2020: Plan at the last visit was for a PSA every 6 months and an OV in 1 year. PSA 01/16/2020 = 0.14 ng/mL. Since the last visit, he's been doing well. No new medical issues or surgeries. Nocturia 0-1x/night. He feels that he has a good stream and empties his bladder. No dysuria. No gross hematuria. 08/22/20: PSA 08/16/20 = 0.1 ng/mL. IPSS = 5. PVR = 3 mL. He's about the same I guess. Nocturia 0-1x/night. He has been told that he needs testing for sleep apnea. Empties bladder. Force of stream most of the time is good. Overall, he's ok with his voiding. 09/12/21: CAD, s/p CABG x 3 on 04/19/21, DM with peripheral neuropathy, CARLITOS, DM, PVD, HTN, prostate cancer on active surveillance. Prostate MRI 09/26/20 ([facility]) = 2.3 x 0.6 cm focus of likely residual prostate tissue, no concerning lesions. PSA 01/10/21 = 0.11 ng/mL. PSA 06/13/21 = 0.09 ng/mL. Cr 09/10/21 = 1.27 (GFR = 60). PVR = 2 mL. States that his heart is doing well but he's having hypertension in the evening. He's going to see an manager licensing in about 1 week to see if he has high aldosterone. No difficulties voiding. No dysuria. No gross hematuria. Empties bladder. Nocturia 0-1x/night. He's using CPAP and an insulin pump. 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 PSA 01/29/22 = 0.08 ng/mL. PSA 08/26/22 = 0.1 ng/mL. PVR = 0 mL. IPSS = 14. Has has been diagnosed with chronic kidney disease. No dysuria. He states that he has sometimes he has difficultly getting started in the morning and he'll have to double void to empty his bladder. Force of stream seems unchanged to him. 09/09/23: Plan was to follow PSA [id number] and get a prostate MRI. Prostate MRI 01/13/23 ([facility]) = stable since 2020 and that the residual prostate tissue that was seen on 2020 appears stable on the 2022 MRI. PSA 08/21/23 = 0.10 ng/mL. PVR = 0 mL. IPSS = 6. No surgeries since the last visit but he has some chronic kidney disease. No dysuria. No gross hematuria. Peter Gipson MD [address] [facility],[address], [place], [address], [facility] 09/09/2023 12:54:07
--- OUTSIDE RECORDS SUMMARY | 2024-04-22 12:18 | XMS_ITS | Encounter Summary ---
Author Organization [place] Address [address] [place] [address] Care Team Providers Care Pen Tester Name Role Phone Roberto Linder MD Primary Care Provider [phone] [facility] Provider Anatoliy Jackson MD Primary Care Provider [phone] Heath Tate MD Unavailable [phone] Peter Gipson MD Unavailable [phone] Peter Aguiar MD Unavailable Unavail [facility] Peter Mcmullen MD Unavailable [phone] Fidencio Solis MD Unavailable Hallie Maldonado APRN GUEST SERVICES DIRECTOR Unavailable [phone] Giuliana Gomez APRN GUEST SERVICES DIRECTOR Unavailable [phone] Fidencio Solis MD Unavailable Giuliana Gomez APRN GUEST SERVICES DIRECTOR Unavailable [phone] Giuliana Gomez APRN GUEST SERVICES DIRECTOR Unavailable [phone] Fidencio Solis MD Unavailable Fidencio Solis MD Unavailable Encounter Details Date Type Department Care Team (Late st Contact Info) Description 07/30/2011 Office Visit-[facility] [place] [address] [place] [address] Raheem Ovalles MD [facility] [address] [place] [address] Social History Tobacco Use Types Packs/Day Years Used Date Smoking Tobacco: Never Alcohol Use Standard Drinks/Week Comments Yes 0 (1 standard drink = 0.6 oz pur e alcohol) occasionally Sex and Gender Information Value Date Recorded Sex Assigned at Male 03/12/2021 12:11 PM CDT 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 DATE: 07/30/2011 JUSTIN NIKITA DATE OF : 1950 AGE: [age] years old ACCOUNT: [id number] Referring Physician: WARREN TATE Referring Clinic: ENDOCRINOLOGY CLINIC/[facility] CURRENT DIAGNOSES 1. Diabetes Mellitus-Insulin [...] does develop discomfort in both calves while walking.Walking uphill promptly provokes his discomfort, requiring him [...] gentleman with a slightly protuberant abdomen. He does appear comfortable at rest and while up walking in the office. The blood pressure in the right armis 132/64, and in the left arm 134/70. His pulse rate is 48. He stands 71 inches tall and weighs 223 pounds. The breath sounds are normal. No pulmonary rales, wheezes, or rhonchi are heard. The inspiratory effort at rest is unlabored. No chest wall tenderness is present. The cardiac impulse is feltin the midclavicular line. The first and second heart sounds are normal at the apex. No murmurs, rubs, or gallops are heard. The rhythm is regular and the rate is normal. The carotid upstrokes are normal. No carotid artery bruits are heard. The venous column in his neck does not appear distended. The brachial, radial, ulnar, and femoral pulses are normal. No abdominal or femoral artery bruits areheard. The posterior tibial and dorsal pedis pulses are palpable in both feet although diminished (1+). No pallor or cyanosis is observed in his lower extremities. He does appear alert and oriented. He displays normal judgment and insight. PAST HISTORY Past Medical [...] regular exercise; Residence - lives in [place] year round; Place of - [place]; REVIEW OF SYSTEMS GENERAL denies recent weight [...] filedocumented in this encounter Care Teams Pen Tester Relationship Specialty Start Date End Date Roberto Linder MD [address] [place] [address] PCP - General 12/29/02 08/20/11 [facility] [place] [address] [place] [address] PCP - General 08/21/11 05/13/12 [place] [address] [place] [address] PCP - General 05/14/12 Heath Tate MD ENDOCRINE CLINIC [facility] [address] [place] [phone] PCP - Internal Medicine INTERNAL MEDICINE - ENDOCRINOLOGY, DIABETES & METABOLISM 01/06/14 Peter Gipson MD [facility] [address] [place] [address] [address] [place] [address] PCP - Urology 04/02/15 Peter Aguiar MD Assigned Heart and Vascular Provider 06/01/20 12/15/20 Peter Mcmullen MD [address] [place] [address] Assigned Musculoskeletal Provider 06/01/20 06/20/22 Fidencio Solis MD [address] [place] [address] Assigned Heart and Vascular Provider 12/16/20 02/21/21 Hallie Maldonado APRN GUEST SERVICES DIRECTOR [address] [place] [address] Assigned Heart and Vascular Provider 02/22/21 05/18/21 Giuliana Gomez APRN GUEST SERVICES DIRECTOR [address] [place] [address] Assigned Heart and Vascular Provider 05/19/21 06/15/21 Fidencio Solis MD [address] [place] [address] Assigned Heart and Vascular Provider 06/16/21 06/29/21 Giuliana Gomez APRN GUEST SERVICES DIRECTOR [address] [place] [address] Assigned Heart and Vascular Provider 06/30/21 07/18/22 Giuliana Gomez APRN GUEST SERVICES DIRECTOR [address] [place] [address] Nurse Practitioner Cardiovascular Disease 08/21/21 Fidencio Solis MD [address] [place] [address] Cardiovascular Disease 08/21/21 Fidencio Solis MD [address] [place] [address] Assigned Heart and Vascular Provider 07/19/22 04/17/23 documented as of this encounter
--- OUTSIDE RECORDS SUMMARY | 2024-04-22 12:18 | XMS_ITS | Encounter Summary ---
Author Organization [place] Address [address] [place] [address] Care Team Providers Care Clinical Courier Name Role Phone [facility] Primary Care Provider Anatoliy Jackson MD Primary Care Provider [phone] Heath More MD Unavailable [phone] Peter Gipson MD Unavailable Peter Aguiar MD Unavailable Unavail [facility] Peter Mcmullen MD Unavailable [phone] Fidencio Solis MD Unavailable Hallie Maldonado DIRECTOR OF ENROLLMENT FOOD DEHYDRATOR OPERATOR Unavailable [phone] Giuliana Gomez APRN FOOD DEHYDRATOR OPERATOR Unavailable [phone] Fidencio Solis MD Unavailable Giuliana Gomez APRN FOOD DEHYDRATOR OPERATOR Unavailable [phone] Giuliana Gomez APRN FOOD DEHYDRATOR OPERATOR Unavailable [phone] Fidencio Solis MD Unavailable Fidenico Solis MD Unavailable Encounter Details Date Type Department Care Team (Late st Contact Info) Description 10/01/2011 Office Visit-[facility] [address] [place] [address] Raheem Ovalles MD [facility] [address] [place] [address] Social History Tobacco Use Types Packs/Day Years Used Date Smoking Tobacco: Never Alcohol Use Standard Drinks/Week Comments Yes 0 (1 standard drink = 0.6 oz pur e alcohol) occasionally Sex and Gender Information Value Date Recorded Sex Assigned at Male 03/12/2021 12:11 PM CDT 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 DATE: 10/01/2011 NIKITA ANDERSON DATE OF : 1950 AGE: [age] years old ACCOUNT: [id number] Referring Physician: WARREN MORE Referring Clinic: [facility] CURRENT DIAGNOSES 1. Diabetes Mellitus-Insulin Dependent, 250.00 [...] 1/4 mile provokes his bilateral claudication primarily affecting his left lower extremity when he begins [...] inspiratory effort at rest is unlabored. No chestwall tenderness is present. The cardiac impulse is [...] aneurysm of the abdominal aorta or the iliac arteries was observed. Diffuse atherosclerotic plaque was observed in the abdominal aorta and iliac arterial system, however the flow velocities were within the usual range indicating no significantfocal stenosis. I also reviewed his bilateral lower extremity duplex ultrasound study. Again diffuse atherosclerotic plaque was observed in the arteries of his [...] of - [place]; REVIEW OF SYSTEMS GENERAL denies recent weight [...] experiencing intermittent claudication affecting both lower extremities particularlythe left lower extremity, which occurs while walking up hill. His duplex ultrasound study has demonstrated diffuse atherosclerotic plaque in the arteries of the lower extremities, however no significant focal narrowing has developed. As a result I [...] seeing Dr. Brendan Plummer in follow-up at [facility] Heart. I have appreciated the opportunity to participate in the care of your patient Mr. Anderson. TODAYS ORDERS 1. Vasc F/U With Dr Charlette M.D. 6 months 2. Renal Artery Doppler 2 weeks Raheem Ovalles M.D. documented in this encounter Plan of Treatment Not on file documented as of this encounter Visit Diagnoses Not on filedocumented in this encounter Care Teams Clinical Courier Relationship Specialty Start Date End Date Clinic, [facility] [address] [place] [place] [address] PCP - General 08/21/11 05/13/12 [place] [address] [place] [address] PCP - General 05/14/12 Heath More MD ENDOCRINE CLINIC [facility] [address] [place] [phone] PCP - Internal Medicine INTERNAL MEDICINE - ENDOCRINOLOGY, DIABETES & METABOLISM 01/06/14 Peter Gipson MD [facility] [address] [place] [address] [address] [place] [address] PCP - Urology 04/02/15 Peter Aguiar MD Assigned Heart and Vascular Provider 06/01/20 12/15/20 Peter Mcmullen MD [address] [place], [place] [address] Assigned Musculoskeletal Provider 06/01/20 06/20/22 Fidencio Solis MD [address] [place] [address] Assigned Heart and Vascular Provider 12/16/20 02/21/21 Hallie Maldonado APRN FOOD DEHYDRATOR OPERATOR [address] [place] [address] Assigned Heart and Vascular Provider 02/22/21 05/18/21 Giuliana Gomez APRN FOOD DEHYDRATOR OPERATOR [address] [place] [address] Assigned Heart and Vascular Provider 05/19/21 06/15/21 Fidencio Solis MD [address] [place] [address] Assigned Heart and Vascular Provider 06/16/21 06/29/21 Giuliana Gomez APRN FOOD DEHYDRATOR OPERATOR [address] [place] [address] Assigned Heart and Vascular Provider 06/30/21 07/18/22 Giuliana Gomez APRN FOOD DEHYDRATOR OPERATOR [address] [place] [address] Nurse Practitioner Cardiovascular Disease 08/21/21 Fidencio Solis MD [address] [place] [address] Cardiovascular Disease 08/21/21 Fidencio Solis MD [address] [place] [address] Assigned Heart and Vascular Provider 07/19/22 04/17/23 documented as of this encounter
--- OUTSIDE RECORDS SUMMARY | 2024-04-22 12:18 | XMS_ITS | Encounter Summary ---
Author Organization [place] Address [address] [place] [address] Care Team Providers Care Snout Puller Name Role Phone Eliza aPtten MD Primary Care Provider [phone] Heath More MD Unavailable [phone] Peter Gipson MD Unavailable [phone] Peter Aguiar MD Unavailable Unavail [facility] Peter Mcmullen MD Unavailable [phone] Fidencio Solis MD Unavailable Hallie Maldonado APRN PSYCHIATRIC AIDES TEACHER Unavailable [phone] Giuliana Gomez APRN PSYCHIATRIC AIDES TEACHER Unavailable [phone] Fidencio Solis MD Unavailable Giuliana Gomez APRN PSYCHIATRIC AIDES TEACHER Unavailable [phone] Giuliana Gomez APRN PSYCHIATRIC AIDES TEACHER Unavailable [phone] Fidencio Solis MD Unavailable Fidencio Solis MD Unavailable Encounter Details Date Type Department Care Team (Late st Contact Info) Description 09/15/2012 Office Visit-[facility] [place] [address] [facility] [address] [place] [address] Raheem Ovalles MD [facility]IC [address] [place] [address] Social History Tobacco Use Types Packs/Day Years Used Date Smoking Tobacco: Never Alcohol Use Standard Drinks/Week Comments Yes 0 (1 standard drink = 0.6 oz pur e alcohol) occasionally Sex and Gender Information Value Date Recorded Sex Assigned at Male 03/12/2021 12:11 PM CDT 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 DATE: 09/15/2012 NIKITA ANDERSON DATE OF : 1950 AGE: [age] years old ACCOUNT: [id number] Referring Physician: ELIZA PATTEN Referring Clinic: [facility] [...] indices have demonstrated significant bilateral peripheral arterial disease. A duplex ultrasonography has demonstrated diffuse atherosclerotic plaque in the arteriesof his lower extremities without significant focal narrowing. As a result, medical management was recommended. The patient was instructed in a walking program and cilostazol was prescribed six monthsago. His intermittent claudication has gradually improved. He [...] or gallops are heard. The rhythm is regular, and the rate is normal. The carotid upstrokes are normal. No carotid artery bruits are heard. The venous column in his neck does not appear distended. The posterior tibial pulses are palpable, but diminished in both feet. He does appear alert and oriented. He displays normal judgment and insight. Physiologic testing including rest and exercise ankle brachial indices showed normal ankle brachialindices at rest. However, a decrease in the [...] Sedentary Life Style:positive; Age:positive ; LDL Goal <LT> 100 SOCIAL HISTORY Alcohol Use - drinks rarely; Smoking - smoked in college 40 years ago; Diet - caffeine use-3-4 per day, less salt and low fat low sugar; Lifestyle - ; Exercise - no regular exercise; Residence- lives in [place] year round; Place of - [place]; REVIEW OF SYSTEMS GENERAL pt has been [...] cilostazol and walking program. Currently, he is not experiencing any intermittent claudication which limits his daily [...] observed in the left kidney, which has notsignificantly changed in comparison with his previous study. Mr. Anderson will return for a follow-up visit to the vascular diagnostic clinic in one year to reassess his peripheral arterial disease, follow-up renal artery ultrasound and rest exercise ankle brachial indices will be obtained at that time. I will remain available to see him in the meantime if inyour judgment the need arises. I have appreciated [...] on filedocumented in this encounter Care Teams Snout Puller Relationship Specialty Start Date End Date Eliza Patten MD PCP - General 05/14/12 Heath More MD [facility]OCRINE CLINIC [facility] [address] [facility] [address] [place] [phone] PCP - Internal Medicine INTERNAL MEDICINE - ENDOCRINOLOGY, DIABETES & METABOLISM 01/06/[address] [facility] UR[facility]Y [address] [place] [address] [address] [place] [address] PCP - Urology 04/02/15 Peter Aguiar MD Assigned Heart and Vascular Provider 06/01/20 12/15/20 Peter Mcmullen MD [address] [facility] [address] [place] [address] Assigned Musculoskeletal Provider 06/01/20 06/20/22 Fidencio Solis MD [address] [place] [address] Assigned Heart and Vascular Provider 12/16/20 02/21/21 Hallie Maldonado APRN PSYCHIATRIC AIDES TEACHER [address] [place] [address] Assigned Heart and Vascular Provider 02/22/21 05/18/21 Giuliana Gomez APRN PSYCHIATRIC AIDES TEACHER [address] [place], [place] [address] Assigned Heart and Vascular Provider 05/19/21 06/15/21 Fidencio Solis MD [address] [place] [address] Assigned Heart and Vascular Provider 06/16/21 06/29/21 Giuliana Gomez APRN PSYCHIATRIC AIDES TEACHER [address] [place], [place] [address] Assigned Heart and Vascular Provider 06/30/21 07/18/22 Giuliana Gomez APRN PSYCHIATRIC AIDES TEACHER [address] [place] [address] Nurse Practitioner Cardiovascular Disease 08/21/21 Fidencio Solis MD [address] [place] [address] Cardiovascular Disease 08/21/21 Fidencio Solis MD [address] [place], [place] [address] Assigned Heart and Vascular Provider 07/19/22 04/17/23 documented as of this encounter
--- OUTSIDE RECORDS SUMMARY | 2024-04-22 12:18 | XMS_ITS | Encounter Summary ---
Author Organization [place] Address [address] [place] [address] Care Team Providers Care Division Controller Name Role Phone Roberto Linder MD Primary Care Provider [phone] [facility] Anatoliy Jackson MD Primary Care Provider Heath Tate MD Unavailable [phone] Peter Gipson MD Unavailable [phone] Peter Aguiar MD Unavailable Unavail [facility] Peter Mcmullen MD Unavailable [phone] Fidencio Solis MD Unavailable Hallie Maldonado APRN ASSOCIATE CIVIL ENGINEER Unavailable [phone] Giuliana Gomez APRN ASSOCIATE CIVIL ENGINEER Unavailable [phone] Fidencio Solis MD Unavailable Giuliana Gomez APRN ASSOCIATE CIVIL ENGINEER Unavailable [phone] Giuliana Gomez APRN ASSOCIATE CIVIL ENGINEER Unavailable [phone] Fidencio Solis MD Unavailable Fidencio Solis MD Unavailable Encounter Details Date Type Department Care Team (Late st Contact Info) Description 02/06/2011 Office Visit-[facility] [place] [address] [facility] [address] [place] [address] Hyacinth Plummer DO [address] [facility] [address] [place] [address] Social History Tobacco Use Types Packs/Day Years Used Date Smoking Tobacco: Never Alcohol Use Standard Drinks/Week Comments Yes 0 (1 standard drink = 0.6 oz pur e alcohol) occasionally Sex and Gender Information Value Date Recorded Sex Assigned at Male 03/12/2021 12:11 PM CDT 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 DATE: 02/06/2011 NIKITA ANDERSON DATE OF : 1950 AGE: [age] years old Referring Physician: WARREN TATE Referring Clinic: [facility] CLINIC/[facility] CURRENT DIAGNOSES 1. - Claudication-intermittent, 443.9 2. [...] 60-year-old gentleman who has had a history of insulin-dependent diabetes for over 30 years. He does [...] October,. At that time he had a signi ficantly elevated blood pressure, hypertensive response to exercise, and the test was aborted. He was placed on antihypertensive medication at that time. In 2007 he had another stress echocardiogram.At that time he had evidence of EKG abnormalities with greater than [address] segment depression in the inferolateral leads. However, the echocardiogram did not demonstrate evidence for wall motion abnormality consistent with ischemia. However, the reader did note if there is concern given the EKGchanges that a coronary angiogram or a CT coronary angiogram may be indicated. Mr. Anderson has suffered from shortness of breath with moderate to heavy exertion for several years. He does not feel this is worsening or progressing. He notes he has gained some weight over the last couple of years. Healso has had to limit his activity because of cramping in his calves. He did undergo an ankle brachial index with exercise. This was done on January 22 as well. He walked on a treadmill for 5 minutes marika pace of 1.5 miles per hour and at 10% grade. His baseline ABIs were normal and post exercise were 1.11 and 1.14 on the left, suggesting normal blood flow. However, the patient tells me he did not have any symptoms of calf pain while walking on the treadmill. He continues to have fairly consistentcramping in the lower extremities with any type of physical activity, walking either hill or flat gr ound, and this goes away with rest. Mr. [...] to taking simvastatin he was prescribed a medicationby Dr. Tate for his triglycerides but he was very concerned about a $96 per month copay of thismedication and did not fill this medication. He does not recall what type of medication it was or the name of it. He has had an electrocardiogram on January 22, which I do have available for review. It demonstrates a normal sinus rhythm with a rightward axis. He has T wave abnormalities seen inferiorly and in V6, suggesting possible inferior ischemia. On exam today his blood pressure is 107/53, pulse 55, and body mass index is 29. I do not appreciate carotid bruits on exam or jugular venous distention. Cardiovascular tones are regular. I do not hear a murmur, gallop, or rub. His Lungs are clear posteriorly. He has no abdominal bruits. He has palpable pulses in the upper extremities. They are somewhat diminished in the lower extremities and there is no peripheral edema. He has significant skin abrasions to his shins. He tells me he is tough on his knees and legs at work. He denies any [...] no regular exercise; Residence - lives in [place] year round; Place of - [place]; REVIEW OF SYSTEMS GENERAL denies recent weight [...] exercise, highly suggestive of claudication despite normal RY with exercise, longstanding insulin-dependent diabetes with nephropathy, neuropathy, and cataracts, hypertension that is well controlled, and mixed hyperlipidemia with poor control of triglyceridesand HDL deficiency. I did go over the results of his nuclear stress test. He likely does have coronary artery disease based on his test findings and previous test findings, but it is unclear whether his symptoms of shortness of breath are directly related to this. The area on nuclear stress testingdoes suggest a small area representing less than [...] risk of invasive coronary angiogram including stroke, [place], and bleeding complications, he does run the risk of contrast nephropathy given his diabetes and kidney dysfunction although I do not believe that this is prohibitive. After a lengthy discussion with the patient and his , we are going to continue to optimize his medications for aggressive control of his risk factors, outlined below. 1. High blood pressure is well controlled. 2. His last hemoglobin A1C was 8.1. I would recommend aggressive control of blood sugars for goal of hemoglobin A1C around 6%. 3. Mixed hyperlipidemia. He continues to have persistent HDL deficiency and hypertriglyceridemia. I have suggested Lovaza for treatment of the above. He is not sure whetherthis was the medication that Dr. Tate prescribed. I have given him some samples, as well as a reduction in the copay card for this. If this ends up being one and the same medication, I have askedhim to contact either me or Dr. Tate [...] any symptoms of chest discomfort. I have also talked to him at great length that if [...] Vasc Dx Cl Initial Visit Vasc Dx Clinic-[facility] Brendan Plummer D.O. cc:Nadia Tate M.D. documented in this encounter Plan of Treatment Not on file documented as of this encounter Visit Diagnoses Not on filedocumented in this encounter Care Teams Division Controller Relationship Specialty Start Date End Date Roberto Linder MD [address] [facility] [address] [place] [address] PCP - General 12/29/02 08/20/11 [facility] [address] [place] [address] PCP - General 08/21/11 05/13/12 [place] [address] [place] [address] PCP - General 05/14/12 Heath Tate MD [facility] CL[facility]IC [facility] [address] [facility] [address] [place] [address] PCP - Internal Medicine INTERNAL MEDICINE - ENDOCRINOLOGY, DIABETES & METABOLISM 01/06/14 Peter Gipson MD [facility] [address] [place] [address] PCP - Urology 04/02/15 Peter Aguiar MD Assigned Heart and Vascular Provider 06/01/20 12/15/20 Peter Mcmullen MD [address] [place], [place] [address] Assigned Musculoskeletal Provider 06/01/20 06/20/22 Fidencio Solis MD [address] [place] [address] Assigned Heart and Vascular Provider 12/16/20 02/21/21 Hallie Maldonado APRN ASSOCIATE CIVIL ENGINEER [address] [place] [address] Assigned Heart and Vascular Provider 02/22/21 05/18/21 Giuliana Gomez APRN ASSOCIATE CIVIL ENGINEER [address] [place], [place] [address] Assigned Heart and Vascular Provider 05/19/21 06/15/21 Fidencio Solis MD [address] [place] [address] [place] [address] Assigned Heart and Vascular Provider 06/16/21 06/29/21 Giuliana Gomez APRN ASSOCIATE CIVIL ENGINEER [address] [place] [address] Assigned Heart and Vascular Provider 06/30/21 07/18/22 Giuliana Gomez APRN ASSOCIATE CIVIL ENGINEER [address] [place] [address] Nurse Practitioner Cardiovascular Disease 08/21/21 Fidencio Solis MD [address] [facility] [place] [address] Cardiovascular Disease 08/21/21 Fidencio Solis MD [address] [facility] [place] [address] Assigned Heart and Vascular Provider 07/19/22 04/17/23 documented as of this encounter
--- OUTSIDE RECORDS SUMMARY | 2024-04-22 12:18 | XMS_ITS | Encounter Summary ---
Author Organization [place] Address [address] [place] [address] Care Team Providers Care Delivery Technician Name Role Phone [facility] [place] Primary Care Provider Anatoliy Jackson MD Primary Care Provider Heath More MD Unavailable [phone] Peter Gipson MD Unavailable Peter Aguiar MD Unavailable Unavail [facility] Peter Mcmullen MD Unavailable [phone] Fidencio Solis MD Unavailable Hallie Maldonado INTERNET MARKETING SPECIALIST OPTOMETRY PROFESSOR Unavailable [phone] Giuliana Gomez APRN OPTOMETRY PROFESSOR Unavailable [phone] Fidencio Solis MD Unavailable Giuliana Gomez APRN OPTOMETRY PROFESSOR Unavailable [phone] Giuliana Gomez APRN OPTOMETRY PROFESSOR Unavailable [phone] Fidencio Solis MD Unavailable Fidencio Solis MD Unavailable Encounter Details Date Type Department Care Team (Late st Contact Info) Description 03/17/2012 Office Visit-[facility] [address] [place] [address] Raheem Ovalles MD [facility] [address] [place] [address] Social History Tobacco Use Types Packs/Day Years Used Date Smoking Tobacco: Never Alcohol Use Standard Drinks/Week Comments Yes 0 (1 standard drink = 0.6 oz pur e alcohol) occasionally Sex and Gender Information Value Date Recorded Sex Assigned at Male 03/12/2021 12:11 PM CDT Gender Identity 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 DATE: 03/17/2012 NIKITA ANDERSON DATE OF : 1950 AGE: [age] years old Referring Physician: WARREN MORE Referring Clinic: [facility]IC[facility] CURRENT DIAGNOSES 1. Diabetes Mellitus-Insulin Dependent, 250.00 [...] both lower extremities. Previously, physiologic testing has demonstratedsignificant bilateral peripheral arterial disease with decreased systolic pressure at the ankles postexercise. Duplex ultrasonography in August 2011 showed diffuse atherosclerotic plaque in the arteries of his lower extremities without significant focal narrowing. Continued medical management was recommended. Cilostazol was prescribed. The patient was instructed in a walking program, although hehas not been walking regularly due to the demands of his work. He does develop claudication after wa lking for less than 1/2 mile outdoors. With rest, the aching pain in both calves does resolve. He has not developed any rest pain or ulcerations affecting his lower extremities. He has not suffered from any exertional angina pectoris. In general, his daily activities have not been restricted by undue dyspnea or fatigue. On exam, he presents as an alert and active gentleman. He appears comfortable at rest and while up walking in the office. The blood pressure in the right brachial artery is 100/54. In the left brachial artery it is 102/50. No significant differential in blood pressure is observed to indicate unilateral subclavian artery stenosis. The pulse rate is 58. He stands 71 inches tall. He weighs 217 pounds. The breath sounds are normal. No pulmonary rales, wheezes, or rhonchi are heard. The inspiratory effort at rest is unlabored. No chest wall tenderness is present. The cardiac impulse is felt in themidclavicular line. The first and second heart sounds are normal at the apex. No murmurs, rubs, or g allops are heard. The rhythm is regular. The rate is normal. The carotid upstrokes are normal. No carotid artery bruits are heard. The venous column in his neck does not appear distended. The brachial, radial, femoral, and posterior tibial pulses are palpable. He does appear alert and oriented. He displays normal judgment and insight. His recent renal artery [...] of walking program; Residence - lives in [place] year round; Place of - [place]; REVIEW OF SYSTEMS GENERAL denies recent weight [...] recommend continued medical management. Cilostazol at 50 mg twice each day has been prescribed for his intermittent claudication. He was again instructed in a walking program to improve his walking distance. I advised him to continue his other medications exactly as you have prescribed for him. He is currently taking aspirin, clonidine, lisinopril, hydrochlorothiazide, Lovaza, metoprolol, and simvastatinin addition to cilostazol. He will return for a follow up visit in the Vascular Diagnostic Clinic in six months to reassess his peripheral arterial disease and intermittent claudication. Rest and exercise ankle pressures will be obtained at that time. I would also recommend [...] on filedocumented in this encounter Care Teams Delivery Technician Relationship Specialty Start Date End Date [facility] [place] [address] [place] [address] PCP - General 08/21/11 05/13/12 [place] [address] [place] [address] PCP - General 05/14/12 Heath More MD [facility] CL[facility]IC [facility] [address] [facility] [address] [place] [phone] PCP - Internal Medicine INTERNAL MEDICINE - ENDOCRINOLOGY, DIABETES & METABOLISM 01/06/14 Peter Gipson MD [facility] [address] [place] [address] [address] [place], [place] [id number] PCP - Urology 04/02/15 Peter Aguiar MD Assigned Heart and Vascular Provider 06/01/20 12/15/20 Peter Mcmullen MD [address] [place], [place] [address] Assigned Musculoskeletal Provider 06/01/20 06/20/22 Fidencio Solis MD [address] [facility] [address] [facility] [address] [place], [place] [address] Assigned Heart and Vascular Provider 12/16/20 02/21/21 Hallie Maldonado APRN OPTOMETRY PROFESSOR [address] [place] [address] Assigned Heart and Vascular Provider 02/22/21 05/18/21 Giuliana Gomez APRN OPTOMETRY PROFESSOR [address] [place], [place] [address] Assigned Heart and Vascular Provider 05/19/21 06/15/21 Fidencio Solis MD [address] [place] [address] Assigned Heart and Vascular Provider 06/16/21 06/29/21 Giuliana Gomez APRN OPTOMETRY PROFESSOR [address] [place] [address] Assigned Heart and Vascular Provider 06/30/21 07/18/22 Giuliana Gomez APRN OPTOMETRY PROFESSOR [address] [place] [address] Nurse Practitioner Cardiovascular Disease 08/21/21 Fidencio Solis MD [address] [place] [address] Cardiovascular Disease 08/21/21 Fidencio Solis MD [address] [place] [address] Assigned Heart and Vascular Provider 07/19/22 04/17/23 documented as of this encounter
--- OUTSIDE RECORDS SUMMARY | 2024-04-22 12:18 | XMS_ITS | Encounter Summary ---
Author Organization [place] Address [address] [facility] [place] [address] Care Team Providers Care Bouffant Curtain Machine Tender Name Role Phone Eliza Jackson MD Primary Care Provider Heath More MD Unavailable [phone] Peter Gipson MD Unavailable [phone] Peter Aguiar MD Unavailable Unavail [facility] Peter Mcmullen MD Unavailable [phone] Fidencio Solis MD Unavailable Hallie Maldonado APRN FRY COOK Unavailable [phone] Giuliana Gomez APRN FRY COOK Unavailable [phone] Fidencio Solis MD Unavailable Giuliana Gomez APRN FRY COOK Unavailable [phone] Giuliana Gomez APRN FRY COOK Unavailable [phone] Fidencio Solis MD Unavailable Fidencio Solis MD Unavailable Encounter Details Date Type Department Care Team (Late st Contact Info) Description 05/20/2012 Office Visit-[facility] [place] [address] [place] [address] [address] [place] [address] Riddhi Lemus, PA-C [address] [facility] [address] [place] [address] Social History Tobacco Use Types Packs/Day Years Used Date Smoking Tobacco: Never Alcohol Use Standard Drinks/Week Comments Yes 0 (1 standard drink = 0.6 oz pur e alcohol) occasionally Sex and Gender Information Value Date Recorded Sex Assigned at Male 03/12/2021 12:11 PM CDT Gender Identity 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 More. He has had a history of claudication and is seeing Dr. Ovalles for his peripheral artery disease. He has hyperlipidemia, hypertension and renal insufficiency for which he has recently been seeing Dr. Lopez. He has complained for quite some time about dyspnea on exertion. He initially saw Dr. Plummer in January 2011, and a stress test showing mild ischemia in the territory of the inferior wall was reviewed. However, there was significant bowel artifact that decreased the specificity of the finding. As the area represented less than 10% of the total myocardium he has been treated medically with aggressiverisk factor control as he was largely asymptomatic. He saw Dr. Plummer again last month and at that time they discussed his heartburn. He found it somewhat difficult to describe but noted a burning sensation and motioned up and down the esophagus. Itdid not seem to be related to exertion. 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 This was done on 05/14/12 in [place] and showed no regional wall motion abnormalities with a normal ejection fraction of 55-60%. It was noted he had no significant valvular abnormalities. He did have an elevatedRVSP of 38 plus right atrial pressure. Dr. Plummer [...] some shortness of breath but it has not worsened at all. Again, he denies chest pain, pressure or tightness. He denies any edema, orthopnea, PND, lightheadedness, camilo syncope or palpitations. He is [...] due to the fact that he had significant renal insufficiency and was hoping to avoid coronary angiography. He now tells me that his creatinine has improved. Nevertheless, he remains completely asymptomatic at this time. He does have nitroglycerin, is on aspirin, statin, beta-hong, and JAMAR inhibitor therapy and at this time feels very comfortable continuing to watch and wait and determining if his chest discomfort comes back. We again reviewed the need for nitroglycerin versus Tums. He [...] creatinine remained elevated we would continue with medical therapy as long as we could. I will [...] symptoms which I happily gave him from our clinic. He will continue his current medications, seek emergent attention if needed, and continue to monitor symptoms. I would like to watch him carefully and have asked that he see his primary accounts administrator, Dr. Plummer, within the next two to three months. He would prefer down in [place] if possible. He tells me he will [...] coronary angiography may be beneficial, and I willlet her know as soon as I get these [...] F/U with Brendan Plummer, DO 2 months Keily Newton documented in this encounter Plan of Treatment Not on file documented as of this encounter Visit Diagnoses Not on filedocumented in this encounter Care Teams Bouffant Curtain Machine Tender Relationship Specialty Start Date End Date Eliza Jackson MD PCP - General 05/14/12 Heath oMre MD [facility] [address] [place] [phone] PCP - Internal Medicine INTERNAL MEDICINE - ENDOCRINOLOGY, DIABETES & METABOLISM 01/06/14 Peter Gipson MD [facility] [address] [place] [address] PCP - Urology 04/02/15 Peter Aguiar MD Assigned Heart and Vascular Provider 06/01/20 12/15/20 Peter Mcmullen MD [address] [facility] [address] [place], [place] [address] Assigned Musculoskeletal Provider 06/01/20 06/20/22 Fidencio Solis MD [address] [facility] [address] [place] [address] Assigned Heart and Vascular Provider 12/16/20 02/21/21 Hallie Maldonado APRN FRY COOK [address] [place] [address] Assigned Heart and Vascular Provider 02/22/21 05/18/21 Giuliana Gomez APRN FRY COOK [address] [place] [address] Assigned Heart and Vascular Provider 05/19/21 06/15/21 Fidencio Solis MD [address], [facility] [address] [place] [address] Assigned Heart and Vascular Provider 06/16/21 06/29/21 Giuliana Gomez APRN FRY COOK [address] [place] [address] Assigned Heart and Vascular Provider 06/30/21 07/18/22 Giuliana Gomez APRN FRY COOK [address] [place] [address] Nurse Practitioner Cardiovascular Disease 08/21/21 Fidencio Solis MD [address] [place] [address] MD Cardiovascular Disease 08/21/21 Fidencio Solis MD [address] [facility] [address] [place] [address] Assigned Heart and Vascular Provider 07/19/22 04/17/23 documented as of this encounter
--- NOTE | 2024-04-22 12:21 | W.ANESCHARGE ---
Anesthesia Charges Start Date/Time Anesthesia Start Date: 04/22/24 Anesthesia Start Time: 13:30 Stop Date/Time Anesthesia Stop Date: 04/22/24 Anesthesia Stop Time: 14:19 Summary Extremes of Age - Over 70 or under 1: MDA
--- NOTE | 2024-04-22 14:23 | W.ANESCHARGE ---
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
== END 2024-04-22 12:11 | disposition home or self-care (01) ==
LOC: OP CLINIC 12:13
PROVIDERS: PCP Family Medicine; Visit Provider Internal Medicine Gastroenterology
DX: R19.7 Diarrhea, unspecified (principal)
CPT/HCPCS: 00813; 43239; 45380; 88305; 99100; J2371; J2704; J3010